=== PATIENT | male | born 1955 | race Caucasian/White ===

== ENCOUNTER → 2022-10-12 | Outpatient (REF) | payer MEDICAID, SELFPAY ==
[2022-10-12 11:36] LABS: Hematocrit 33.2 % (40-54); Hemoglobin 10.2 g/dL (13.0-16.5); Mean Corp Hgb Conc 30.7 g/dL (32-36); Mean Corpuscular Hgb 29.1 pg (27.0-32.0); Mean Corpuscular Volume 94.9 fL (80-94); Mean Platelet Vol. 10.9 fl (6.2-12.0); Platelet Count 203 K/mm3 (150-450); RBC Distribution Width CV 15.1 % (11.6-14.6); RBC Distribution Width SD 52.6 fl (35.1-43.9); White Blood Count 6.2 K/mm3 (4.4-11.0)
[2022-10-12 11:56] LABS: Vitamin D,25 Hydroxy 61.6 ng/mL
[2022-10-12 12:16] LABS: AST(SGOT) 11 U/L (15-37); Alanine Aminotransfer ALT/SGPT 20 U/L (16-61); Alkaline Phosphatase 104 U/L (45-117); Anion Gap 4 (5-15); BUN 30 mg/dL (7-18); BUN/Creat Ratio 20.8 RATIO (10-20); Calcium,Total 8.5 mg/dL (8.5-10.1); Chloride 108 mmol/L (98-107); Cholesterol 80 mg/dL (200); Creatinine, Serum 1.44 mg/dL (0.70-1.30); EST Glomerular Filtration Rate 52 mL/min (>60); Est Glom Filt Rate - Afr Amer 63 mL/min (>60); Globulin 2.9 g/dL (2.2-4.2); Glucose 314 mg/dL (74-106); High Density Lipoprotein 36 mg/dL; Potassium 4.4 mmol/L (3.5-5.1); Protein, Total 5.9 g/dL (6.4-8.2); Sodium Level 137 mmol/L (136-145); Thyroid Stim Hormone (TSH) 2.41 uIU/mL (0.358-3.74); Triglycerides 99 mg/dL; Very Low Density Lipoprotein 20 mg/dL (5-40)
[2022-10-12 13:32] LABS: Hemoglobin A1c 7.6 % (3.8-5.6)
== END | disposition home or self-care (01) ==
LOC: OLS.ACW100 06:10
PROVIDERS: Visit Provider Family Medicine
DX: E11.42 Type 2 diabetes mellitus with diabetic polyneuropathy (principal); F41.1 Generalized anxiety disorder; D63.1 Anemia in chronic kidney disease; E55.9 Vitamin D deficiency, unspecified; E78.5 Hyperlipidemia, unspecified; F32.9 Major depressive disorder, single episode, unspecified
CPT/HCPCS: 36415; 80053; 80061; 82306; 83036; 84443; 85027

== ENCOUNTER → 2022-10-13 | Outpatient (REF) | payer MEDICAID, SELFPAY ==
[2022-10-13 09:14] LABS: Hematocrit 32.5 % (40-54); Hemoglobin 10.2 g/dL (13.0-16.5); Mean Corp Hgb Conc 31.4 g/dL (32-36); Mean Corpuscular Hgb 29.5 pg (27.0-32.0); Mean Corpuscular Volume 93.9 fL (80-94); Platelet Count 200 K/mm3 (150-450); RBC Distribution Width CV 15.2 % (11.6-14.6); RBC Distribution Width SD 52.2 fl (35.1-43.9); Red Blood Count 3.46 M/mm3 (4.6-6.2); White Blood Count 5.4 K/mm3 (4.4-11.0)
[2022-10-13 09:29] LABS: AST(SGOT) 11 U/L (15-37); Alanine Aminotransfer ALT/SGPT 17 U/L (16-61); Alkaline Phosphatase 100 U/L (45-117); Anion Gap 5 (5-15); BUN 32 mg/dL (7-18); BUN/Creat Ratio 23.5 RATIO (10-20); Calcium,Total 8.4 mg/dL (8.5-10.1); Chloride 110 mmol/L (98-107); Cholesterol 78 mg/dL (200); Creatinine, Serum 1.36 mg/dL (0.70-1.30); EST Glomerular Filtration Rate 56 mL/min (>60); Est Glom Filt Rate - Afr Amer 67 mL/min (>60); Globulin 2.9 g/dL (2.2-4.2); Glucose 237 mg/dL (74-106); High Density Lipoprotein 40 mg/dL; Potassium 4.4 mmol/L (3.5-5.1); Protein, Total 5.9 g/dL (6.4-8.2); Sodium Level 141 mmol/L (136-145); Triglycerides 79 mg/dL; Very Low Density Lipoprotein 16 mg/dL (5-40)
[2022-10-13 10:58] LABS: Hemoglobin A1c 7.6 % (3.8-5.6)
== END | disposition home or self-care (01) ==
LOC: OLS.ACW100 05:00
PROVIDERS: Visit Provider Family Medicine
DX: E11.42 Type 2 diabetes mellitus with diabetic polyneuropathy (principal); I10 Essential (primary) hypertension; F41.1 Generalized anxiety disorder; D63.1 Anemia in chronic kidney disease; E55.9 Vitamin D deficiency, unspecified; E78.5 Hyperlipidemia, unspecified; F32.9 Major depressive disorder, single episode, unspecified
CPT/HCPCS: 36415; 80053; 80061; 83036; 85027

== ENCOUNTER → 2022-12-01 | Outpatient (REF) | payer MEDICAID, SELFPAY ==
[2022-12-01 09:13] LABS: Hematocrit 32.3 % (40-54); Mean Corpuscular Hgb 28.8 pg (27.0-32.0); Mean Corpuscular Volume 93.1 fL (80-94); Mean Platelet Vol. 10.8 fl (6.2-12.0); Platelet Count 215 K/mm3 (150-450); RBC Distribution Width CV 14.7 % (11.6-14.6); RBC Distribution Width SD 50.5 fl (35.1-43.9); Red Blood Count 3.47 M/mm3 (4.6-6.2); White Blood Count 4.1 K/mm3 (4.4-11.0)
[2022-12-01 09:41] LABS: ALB/GLOB Ratio 1.1 RATIO (0.9-2.4); AST(SGOT) 9 U/L (15-37); Alanine Aminotransfer ALT/SGPT 17 U/L (16-61); Albumin, Serum 2.9 g/dL (3.2-5.0); Alkaline Phosphatase 102 U/L (45-117); Anion Gap 4 (5-15); BUN 20 mg/dL (7-18); BUN/Creat Ratio 15.6 RATIO (10-20); Calcium,Total 8.7 mg/dL (8.5-10.1); Chloride 115 mmol/L (98-107); Creatinine, Serum 1.28 mg/dL (0.70-1.30); EST Glomerular Filtration Rate 60 mL/min (>60); Est Glom Filt Rate - Afr Amer 72 mL/min (>60); Globulin 2.7 g/dL (2.2-4.2); Glucose 192 mg/dL (74-106); Lipase 11 U/L (13-75); Potassium 3.8 mmol/L (3.5-5.1); Protein, Total 5.6 g/dL (6.4-8.2); Sodium Level 142 mmol/L (136-145)
== END | disposition home or self-care (01) ==
LOC: OLS.ACW300 05:00
PROVIDERS: Visit Provider Family Medicine
DX: N18.31 Chronic kidney disease, stage 3a (principal); I25.10 Atherosclerotic heart disease of native coronary artery without angina pectoris
CPT/HCPCS: 36415; 80053; 83690; 83735; 85027

== ENCOUNTER → 2023-05-02 | Outpatient (REF) | payer MEDICAID, SELFPAY ==
[2023-05-02 10:24] LABS: Anion Gap 5 (5-15); BUN 17 mg/dL (7-18); Calcium,Total 9.1 mg/dL (8.5-10.1); Chloride 111 mmol/L (98-107); Cholesterol 96 mg/dL (200); EST Glomerular Filtration Rate 79 mL/min (>60); Est Glom Filt Rate - Afr Amer 96 mL/min (>60); Glucose 118 mg/dL (74-106); High Density Lipoprotein 46 mg/dL; Potassium 4.7 mmol/L (3.5-5.1); Sodium Level 142 mmol/L (136-145); Triglycerides 86 mg/dL; Very Low Density Lipoprotein 17 mg/dL (5-40)
[2023-05-02 11:11] LABS: Hemoglobin A1c 7.6 % (3.8-5.6)
== END | disposition home or self-care (01) ==
LOC: OLS.ACW300 05:00
PROVIDERS: Visit Provider Family Medicine
DX: E11.42 Type 2 diabetes mellitus with diabetic polyneuropathy (principal); F41.1 Generalized anxiety disorder; R53.1 Weakness; M62.81 Muscle weakness (generalized)
CPT/HCPCS: 36415; 80048; 80061; 83036

== ENCOUNTER → 2023-07-13 | Outpatient (REF) | payer MEDICAID, SELFPAY ==
[2023-07-13 08:49] LABS: Erythrocyte Sedimentation Rate 7 mm/hr (0-20)
[2023-07-13 08:52] LABS: Hematocrit 33.5 % (40-54); Hemoglobin 10.1 g/dL (13.0-16.5); Mean Corp Hgb Conc 30.1 g/dL (32-36); Mean Corpuscular Hgb 29.6 pg (27.0-32.0); Mean Corpuscular Volume 98.2 fL (80-94); Mean Platelet Vol. 10.9 fl (6.2-12.0); Platelet Count 201 K/mm3 (150-450); RBC Distribution Width CV 14.9 % (11.6-14.6); RBC Distribution Width SD 53.7 fl (35.1-43.9); Red Blood Count 3.41 M/mm3 (4.6-6.2); White Blood Count 4.8 K/mm3 (4.4-11.0)
[2023-07-13 09:02] LABS: ALB/GLOB Ratio 1.1 RATIO (0.9-2.4); AST(SGOT) 7 U/L (15-37); Alanine Aminotransfer ALT/SGPT 18 U/L (16-61); Alkaline Phosphatase 90 U/L (45-117); Anion Gap 3 (5-15); BUN 23 mg/dL (7-18); BUN/Creat Ratio 20.7 RATIO (10-20); CRP < 2.90 mg/L (0.0-3.0); Calcium,Total 8.5 mg/dL (8.5-10.1); Chloride 116 mmol/L (98-107); Cholesterol 96 mg/dL (200); Creatinine, Serum 1.11 mg/dL (0.70-1.30); EST Glomerular Filtration Rate 70 mL/min (>60); Est Glom Filt Rate - Afr Amer 85 mL/min (>60); Globulin 2.8 g/dL (2.2-4.2); Glucose 122 mg/dL (74-106); High Density Lipoprotein 40 mg/dL; Potassium 4.4 mmol/L (3.5-5.1); Protein, Total 5.8 g/dL (6.4-8.2); Sodium Level 144 mmol/L (136-145); Triglycerides 88 mg/dL; Very Low Density Lipoprotein 18 mg/dL (5-40)
[2023-07-13 09:26] LABS: Hemoglobin A1c 7.7 % (3.8-5.6)
== END | disposition home or self-care (01) ==
LOC: OLS.ACW300 05:00
PROVIDERS: Visit Provider Family Medicine
DX: E11.42 Type 2 diabetes mellitus with diabetic polyneuropathy (principal); F41.1 Generalized anxiety disorder; R41.841 Cognitive communication deficit; R53.1 Weakness; M62.81 Muscle weakness (generalized)
CPT/HCPCS: 36415; 80053; 80061; 83036; 85027; 85652; 86140

== ENCOUNTER → 2023-07-31 | Outpatient (REF) | payer MEDICAID, SELFPAY ==
[2023-07-31 09:45] LABS: Hematocrit 34.3 % (40-54); Hemoglobin 10.7 g/dL (13.0-16.5); Mean Corp Hgb Conc 31.2 g/dL (32-36); Mean Corpuscular Hgb 30.6 pg (27.0-32.0); Mean Platelet Vol. 10.6 fl (6.2-12.0); Platelet Count 222 K/mm3 (150-450); RBC Distribution Width CV 15.4 % (11.6-14.6); RBC Distribution Width SD 55.5 fl (35.1-43.9); White Blood Count 6.2 K/mm3 (4.4-11.0)
== END | disposition home or self-care (01) ==
LOC: OLS.ACW300 05:00
PROVIDERS: Visit Provider Family Medicine
DX: Z79.899 Other long term (current) drug therapy (principal)
CPT/HCPCS: 36415; 85027

== ENCOUNTER → 2023-10-05 | Outpatient (REF) | payer MEDICAID, SELFPAY ==
[2023-10-05 08:09] LABS: Hematocrit 37.4 % (40-54); Hemoglobin 11.3 g/dL (13.0-16.5); Mean Corp Hgb Conc 30.2 g/dL (32-36); Mean Corpuscular Volume 99.2 fL (80-94); Mean Platelet Vol. 10.1 fl (6.2-12.0); Platelet Count 210 K/mm3 (150-450); RBC Distribution Width CV 14.2 % (11.6-14.6); RBC Distribution Width SD 51.5 fl (35.1-43.9); Red Blood Count 3.77 M/mm3 (4.6-6.2); White Blood Count 5.3 K/mm3 (4.4-11.0)
[2023-10-05 08:37] LABS: ALB/GLOB Ratio 1.1 RATIO (0.9-2.4); AST(SGOT) 6 U/L (15-37); Alanine Aminotransfer ALT/SGPT 16 U/L (16-61); Albumin, Serum 3.2 g/dL (3.2-5.0); Alkaline Phosphatase 96 U/L (45-117); Anion Gap 7 (5-15); BUN 24 mg/dL (7-18); BUN/Creat Ratio 22.2 RATIO (10-20); Calcium,Total 8.9 mg/dL (8.5-10.1); Chloride 112 mmol/L (98-107); Cholesterol 117 mg/dL (200); Creatinine, Serum 1.08 mg/dL (0.70-1.30); EST Glomerular Filtration Rate 73 mL/min (>60); Est Glom Filt Rate - Afr Amer 88 mL/min (>60); Globulin 2.8 g/dL (2.2-4.2); Glucose 189 mg/dL (74-106); High Density Lipoprotein 43 mg/dL; Potassium 4.3 mmol/L (3.5-5.1); Sodium Level 141 mmol/L (136-145); Triglycerides 169 mg/dL; Very Low Density Lipoprotein 34 mg/dL (5-40)
[2023-10-05 12:54] LABS: Hemoglobin A1c 8.2 % (3.8-5.6)
== END | disposition home or self-care (01) ==
LOC: OLS.ACW300 05:00
PROVIDERS: Visit Provider Family Medicine
DX: E11.42 Type 2 diabetes mellitus with diabetic polyneuropathy (principal); F41.1 Generalized anxiety disorder; R41.841 Cognitive communication deficit; R53.1 Weakness; M62.81 Muscle weakness (generalized)
CPT/HCPCS: 36415; 80053; 80061; 83036; 85027

== ENCOUNTER → 2023-10-31 | Outpatient (REF) | payer MEDICAID, SELFPAY ==
[2023-10-31 10:11] LABS: Anion Gap 4 (5-15); BUN 22 mg/dL (7-18); BUN/Creat Ratio 17.7 RATIO (10-20); Calcium,Total 8.9 mg/dL (8.5-10.1); Chloride 113 mmol/L (98-107); Cholesterol 105 mg/dL (200); Creatinine, Serum 1.24 mg/dL (0.70-1.30); EST Glomerular Filtration Rate 62 mL/min (>60); Est Glom Filt Rate - Afr Amer 75 mL/min (>60); Glucose 164 mg/dL (74-106); High Density Lipoprotein 39 mg/dL; Potassium 4.3 mmol/L (3.5-5.1); Sodium Level 142 mmol/L (136-145); Triglycerides 213 mg/dL; Very Low Density Lipoprotein 43 mg/dL (5-40)
[2023-10-31 11:22] LABS: Hemoglobin A1c 8.4 % (3.8-5.6)
== END | disposition home or self-care (01) ==
LOC: OLS.ACW300 05:00
PROVIDERS: Referring Provider Family Medicine; Visit Provider Family Medicine
DX: E11.42 Type 2 diabetes mellitus with diabetic polyneuropathy (principal); E78.5 Hyperlipidemia, unspecified; I10 Essential (primary) hypertension; R53.1 Weakness
CPT/HCPCS: 36415; 80048; 80061; 83036

== ENCOUNTER → 2023-11-07 | Outpatient (REF) | payer MEDICAID, SELFPAY ==
[2023-11-08 08:27] LABS: Mucous, Urine 0 SEEN /hpf (<or=2+); Red Blood Cells-Urine 0 SEEN /hpf (0-5); Squamous Epithelial Cells - UA 0 SEEN /hpf (0-5)
[2023-11-08 08:38] LABS: Color, Urine Yellow (Yellow); Glucose, Dipstick 1000 mg/dl (Normal); Ketone-Dipstick Negative (Negative); Leukocyte Esterase-Dipstick 500 /ul (Negative); Nitrite-Dipstick Positive (Negative); Occult Blood-Urine 25 /ul (Negative); Protein-Dipstick 30 mg/dl (Negative); Specific Gravity, Urine 1.015 (1.002-1.030); Urine Bilirubin Dipstick Negative (Negative); Urine Clarity Clear (Clear); Urine Urobilinogen Normal (Normal)
[2023-11-08 08:48] LABS: Bacteria 3+ /hpf (None Seen); Triple Phosphate Crystals Ur 1+ /hpf (<or=1+); White Blood Cells 5-10 SEEN /hpf (0-5)
== END | disposition home or self-care (01) ==
LOC: OLS.ACW300 22:00
PROVIDERS: Visit Provider Family Medicine
DX: E11.42 Type 2 diabetes mellitus with diabetic polyneuropathy (principal); F41.1 Generalized anxiety disorder; R41.841 Cognitive communication deficit; R27.9 Unspecified lack of coordination; R53.1 Weakness; M62.81 Muscle weakness (generalized)
CPT/HCPCS: 81001; 87077; 87086; 87088; 87186

== ENCOUNTER → 2023-12-06 05:00 | Outpatient (REF) | payer MEDICAID, SELFPAY ==
[2023-12-06 08:33] LABS: Hematocrit 36.3 % (40-54); Hemoglobin 11.2 g/dL (13.0-16.5); Mean Corp Hgb Conc 30.9 g/dL (32-36); Mean Corpuscular Hgb 30.1 pg (27.0-32.0); Mean Corpuscular Volume 97.6 fL (80-94); Mean Platelet Vol. 10.7 fl (6.2-12.0); Platelet Count 187 K/mm3 (150-450); RBC Distribution Width CV 15.1 % (11.6-14.6); RBC Distribution Width SD 54.6 fl (35.1-43.9); Red Blood Count 3.72 M/mm3 (4.6-6.2); White Blood Count 4.5 K/mm3 (4.4-11.0)
[2023-12-06 08:48] LABS: Vitamin D,25 Hydroxy 67.4 ng/mL
[2023-12-06 08:56] LABS: AST(SGOT) 12 U/L (15-37); Alanine Aminotransfer ALT/SGPT 15 U/L (16-61); Alkaline Phosphatase 106 U/L (45-117); Anion Gap 4 (5-15); BUN 13 mg/dL (7-18); Chloride 111 mmol/L (98-107); Cholesterol 100 mg/dL (200); Creatinine, Serum 0.93 mg/dL (0.70-1.30); EST Glomerular Filtration Rate 87 mL/min (>60); Est Glom Filt Rate - Afr Amer 105 mL/min (>60); Glucose 164 mg/dL (74-106); High Density Lipoprotein 39 mg/dL; Potassium 4.1 mmol/L (3.5-5.1); Sodium Level 140 mmol/L (136-145); Triglycerides 173 mg/dL; Uric Acid 4.1 mg/dL (3.5-7.2); Very Low Density Lipoprotein 35 mg/dL (5-40)
[2023-12-06 11:34] LABS: Hemoglobin A1c 7.6 % (3.8-5.6)
== END ==
LOC: OLS.ACW100 05:00
PROVIDERS: Visit Provider Family Medicine
DX: E11.42 Type 2 diabetes mellitus with diabetic polyneuropathy (principal); F41.1 Generalized anxiety disorder; R41.841 Cognitive communication deficit; R27.9 Unspecified lack of coordination; M62.81 Muscle weakness (generalized)
CPT/HCPCS: 36415; 80053; 80061; 82306; 83036; 83735; 84443; 84550; 85027

== ENCOUNTER → 2024-01-01 05:00 | Outpatient (REF) | payer MEDICAID, SELFPAY ==
[2024-01-01 09:06] LABS: Hematocrit 36.9 % (40-54); Hemoglobin 11.1 g/dL (13.0-16.5); Mean Corp Hgb Conc 30.1 g/dL (32-36); Mean Corpuscular Hgb 29.6 pg (27.0-32.0); Mean Corpuscular Volume 98.4 fL (80-94); Mean Platelet Vol. 10.2 fl (6.2-12.0); Platelet Count 200 K/mm3 (150-450); RBC Distribution Width CV 15.3 % (11.6-14.6); RBC Distribution Width SD 55.7 fl (35.1-43.9); Red Blood Count 3.75 M/mm3 (4.6-6.2); White Blood Count 4.9 K/mm3 (4.4-11.0)
[2024-01-01 09:27] LABS: AST(SGOT) 8 U/L (15-37); Alanine Aminotransfer ALT/SGPT 19 U/L (16-61); Albumin, Serum 2.9 g/dL (3.2-5.0); Alkaline Phosphatase 94 U/L (45-117); Anion Gap 7 (5-15); BUN 20 mg/dL (7-18); BUN/Creat Ratio 18.9 RATIO (10-20); Bilirubin, Direct 0.11 mg/dL (0.00-0.30); Chloride 113 mmol/L (98-107); Cholesterol 113 mg/dL (200); Creatinine, Serum 1.06 mg/dL (0.70-1.30); EST Glomerular Filtration Rate 74 mL/min (>60); Est Glom Filt Rate - Afr Amer 90 mL/min (>60); Globulin 2.9 g/dL (2.2-4.2); Glucose 163 mg/dL (74-106); High Density Lipoprotein 44 mg/dL; Potassium 4.2 mmol/L (3.5-5.1); Protein, Total 5.8 g/dL (6.4-8.2); Sodium Level 142 mmol/L (136-145); Triglycerides 165 mg/dL; Very Low Density Lipoprotein 33 mg/dL (5-40)
[2024-01-01 10:45] LABS: Hemoglobin A1c 7.8 % (3.8-5.6)
== END ==
LOC: OLS.ACW300 05:00
PROVIDERS: Visit Provider Family Medicine
DX: F41.1 Generalized anxiety disorder (principal); R41.841 Cognitive communication deficit
CPT/HCPCS: 36415; 80048; 80061; 80076; 83036; 84443; 85027

== ENCOUNTER → 2024-02-19 | Outpatient (REF) | payer MEDICAID, SELFPAY ==
[2024-02-19 09:04] LABS: PSA,Total - Annual Screen 0.05 ng/mL (0.00-4.00)
== END | disposition home or self-care (01) ==
LOC: OLS.ACW300 05:00
PROVIDERS: Visit Provider Family Medicine
DX: Z12.5 Encounter for screening for malignant neoplasm of prostate (principal)
CPT/HCPCS: 36415; 84153; G0103

== ENCOUNTER → 2024-03-26 | Outpatient (REF) | payer MEDICAID, SELFPAY ==
[2024-03-26 09:00] LABS: Hematocrit 35.5 % (40-54); Hemoglobin 10.7 g/dL (13.0-16.5); Mean Corp Hgb Conc 30.1 g/dL (32-36); Mean Corpuscular Hgb 29.2 pg (27.0-32.0); Mean Platelet Vol. 9.9 fl (6.2-12.0); Platelet Count 266 K/mm3 (150-450); RBC Distribution Width CV 14.4 % (11.6-14.6); RBC Distribution Width SD 51.4 fl (35.1-43.9); Red Blood Count 3.66 M/mm3 (4.6-6.2); White Blood Count 11.2 K/mm3 (4.4-11.0)
[2024-03-26 09:19] LABS: Anion Gap 7 (5-15); BUN 25 mg/dL (7-18); Calcium,Total 9.2 mg/dL (8.5-10.1); Chloride 109 mmol/L (98-107); Creatinine, Serum 1.19 mg/dL (0.70-1.30); EST Glomerular Filtration Rate 65 mL/min (>60); Est Glom Filt Rate - Afr Amer 78 mL/min (>60); Glucose 255 mg/dL (74-106); Potassium 4.4 mmol/L (3.5-5.1); Sodium Level 140 mmol/L (136-145)
== END | disposition home or self-care (01) ==
LOC: OLS.ACW300 05:00
PROVIDERS: Visit Provider Family Medicine
DX: F41.1 Generalized anxiety disorder (principal); R26.81 Unsteadiness on feet; R41.841 Cognitive communication deficit
CPT/HCPCS: 36415; 80048; 85027

== ENCOUNTER → 2024-04-01 | Outpatient (REF) | payer MEDICAID, SELFPAY ==
[2024-04-01 09:05] LABS: Hematocrit 34.2 % (40-54); Hemoglobin 10.4 g/dL (13.0-16.5); Mean Corp Hgb Conc 30.4 g/dL (32-36); Mean Corpuscular Hgb 29.1 pg (27.0-32.0); Mean Corpuscular Volume 95.8 fL (80-94); Mean Platelet Vol. 10.1 fl (6.2-12.0); Platelet Count 282 K/mm3 (150-450); RBC Distribution Width CV 14.2 % (11.6-14.6); RBC Distribution Width SD 50.4 fl (35.1-43.9); Red Blood Count 3.57 M/mm3 (4.6-6.2); White Blood Count 6.3 K/mm3 (4.4-11.0)
[2024-04-01 10:01] LABS: AST(SGOT) 8 U/L (15-37); Alanine Aminotransfer ALT/SGPT 15 U/L (16-61); Albumin, Serum 2.8 g/dL (3.2-5.0); Alkaline Phosphatase 85 U/L (45-117); Anion Gap 5 (5-15); BUN 22 mg/dL (7-18); BUN/Creat Ratio 18.6 RATIO (10-20); Bilirubin, Direct 0.08 mg/dL (0.00-0.30); Calcium,Total 8.6 mg/dL (8.5-10.1); Chloride 111 mmol/L (98-107); Cholesterol 92 mg/dL (200); Creatinine, Serum 1.18 mg/dL (0.70-1.30); EST Glomerular Filtration Rate 65 mL/min (>60); Est Glom Filt Rate - Afr Amer 79 mL/min (>60); Glucose 205 mg/dL (74-106); High Density Lipoprotein 44 mg/dL; Potassium 4.4 mmol/L (3.5-5.1); Protein, Total 5.8 g/dL (6.4-8.2); Sodium Level 140 mmol/L (136-145); Triglycerides 97 mg/dL; Very Low Density Lipoprotein 19 mg/dL (5-40)
[2024-04-01 10:33] LABS: Hemoglobin A1c 8.2 % (3.8-5.6)
== END | disposition home or self-care (01) ==
LOC: OLS.ACW200 05:00
PROVIDERS: Visit Provider Family Medicine
DX: S09.90XD Unspecified injury of head, subsequent encounter (principal); R26.81 Unsteadiness on feet; F41.1 Generalized anxiety disorder; R41.841 Cognitive communication deficit
CPT/HCPCS: 36415; 80048; 80061; 80076; 83036; 84443; 85027

== ENCOUNTER → 2024-05-14 07:35 | Outpatient (REF) | payer MEDICAID, SELFPAY ==
[2024-05-14 10:30] LABS: PSA,Total- Diagnostic 0.07 ng/mL (0.0-4.0)
== END ==
LOC: OLS.ACW100 07:35
PROVIDERS: Referring Provider Family Medicine; Visit Provider Family Medicine
DX: S09.90XD Unspecified injury of head, subsequent encounter (principal); R26.81 Unsteadiness on feet; W19.XXXD Unspecified fall, subsequent encounter; F41.1 Generalized anxiety disorder; R41.841 Cognitive communication deficit; N40.1 Benign prostatic hyperplasia with lower urinary tract symptoms
CPT/HCPCS: 36415; 84153

== ENCOUNTER → 2024-07-01 | Outpatient (REF) | payer MEDICAID, SELFPAY ==
[2024-07-01 09:32] LABS: Hemoglobin A1c 8.6 % (<=5.6)
== END | disposition home or self-care (01) ==
LOC: OLS.ACW200 05:00
PROVIDERS: Visit Provider Family Medicine
DX: S09.90XD Unspecified injury of head, subsequent encounter (principal); J96.02 Acute respiratory failure with hypercapnia; F41.1 Generalized anxiety disorder; R26.81 Unsteadiness on feet
CPT/HCPCS: 36415; 83036

== ENCOUNTER → 2024-09-23 05:00 | Outpatient (REF) | payer MEDICAID, SELFPAY ==
--- OUTSIDE RECORDS SUMMARY | 2024-09-23 03:43 | XMS RPT_ITS | CCD ---
Author Organization [facility] Care Team Providers Care Brim Cutter Name Role Phone PROVIDER, UNKNOWN Unavailable Unavailable Spoljaric, Pepe Unavailable Unavailable Baranek, Stacey Unavailable Unavailable Baranek, Stacey Unavailable Unavailable PROVIDER, UNKNOWN Unavailable Unavailable Spoljaric, Pepe Unavailable Unavailable Baranek, Stacey Unavailable Unavailable PROVIDER, UNKNOWN Unavailable Unavailable Spoljaric, Pepe Unavailable Unavailable PROVIDER, UNKNOWN Unavailable Unavailable Spoljaric, Pepe Unavailable Unavailable Soto, Abhijit Unavailable Unavailable Isaiah, Melquiades Unavailable Unavailable PROVIDER, UNKNOWN Unavailable Unavailable Spoljaric, Pepe Unavailable Unavailable Willy Reeder Attending Unavailable PROVIDER, UNKNOWN Referring Unavailable Spoljaric, Pepe Primary Care Unavailable Pedro Rincon Attending Unavailable PROVIDER, UNKNOWN Referring Unavailable Spoljaric, Pepe Primary Care Unavailable Melquiades Gaming Attending Unavailable PROVIDER, UNKNOWN Referring Unavailable Spoljaric, Pepe Primary Care Unavailable Unavailable Primary Care Provider UnavailJose Martin Alcaraz MD Primary Care Provider Chelle Troncoso Primary Care Provider [phone] Chelle Troncoso Primary Care Provider Chelle Troncoso Primary Care Provider CHELLE TRONCOSO Primary Care Unavailab MARIXA Mittal Attending Unavaila ble SELF Referring Unavailable Unavailable Primary Care Provider Unavailshantel Arriaza DMD, MD, Rony Unavailable KLEVER ÁLVAREZ Referring Unavailable PROVIDER, UNKNOWN Admitting Unavailable CINTHYA, RONY Attending Unavailable PROVIDER, UNKNOWN Admitting Unavailable CINTHYA, RONY Attending Unavailable Unavailable Primary Care Provider UnavailChelle Kate MD Primary Care Provider [phone] Jose Martin [place] Primary Care Provider Pepe Marino MD Unavailable [phone] Chelle Mendez Attending Provider Unavailabl e Thea GARCIA, Chelle Referring Provider Unavailabl e Thea GARCIA, Chelle Attending Unavailable Thea GARCIA, Chelle Referring Unavailable Thea GARCIA, Chelle Attending Unavailable Thea GARCIA, Chelle Attending Unavailable Thea GARCIA, Chelle Attending Unavailable Thea GARCIA, Chelle Attending Unavailable Thea GARCIA, Chelle Attending Unavailable Thea GARCIA, Chelle Referring Unavailable Thea GARCIA, Chelle Attending Unavailable Thea GARCIA, Chelle Attending Unavailable Thea GARCIA, Chelle Attending Unavailable Thea GARCIA, Chelle Attending Unavailable Thea GARCIA, Chelle Attending Unavailable CHELLE TRONCOSO Primary Care Unavailable HAYDEE WILLIS Admitting Unavailable MANJINDER SANCHEZ Attending Unavailable LORENZA BOWLES Admitting Unavailable MARIXA RODRIGUEZ Primary Care Unavailable ROMARIO MUNOZ Attending Unavailable CHELLE TRONCOSO Primary Care Unavailable BETHANY SANDHU Admitting Unavailable DELISA COURTNEY Attending Unavailable JARET BLACKWOOD Consulting Unavailable ADAL PRESCOTT Consulting Unavailable GULSHAN ARREOLA Referring Unavailable MARIXA RODRIGUEZ Primary Care Unavailable PEPE MARINO Attending Unavailable PEPE MARINO Referring Unavailable CHELLE TRONCOSO Primary Care Unavailable SUZY CORCORAN Attending Unavailable CHELLE TRONCOSO Primary Care Unavailable CHE ALEGRIA Attending Unavailable CHELLE TRONCOSO Primary Care Unavailable CHE ALEGRIA Attending Unavailable CHE ALEGRIA Referring Unavailable CHELLE TRONCOSO Primary Care Unavailable PEPE MARINO Attending Unavailable CHELLE TRONCOSO Primary Care Unavailable PEPE MARINO Attending Unavailable CHELLE TRONCOSO Primary Care Unavailable Allergies Allergy Classification Reported Allergen(s) Allergy Type Date of Onset Reaction(s) Facility Penicillins (antibiotic) (1 source) Penicillins; Translations: [PENICILLINS] Drug Allergy 09-05-19 24 [facility] Tetracyclines (antibiotic) (1 source) Tetracycline; Translations: [TETRACYCLINE] Drug Allergy 09-05-19 24 [facility] Repository (4 sources) Oxytetracycline; Translations: [OXYTETRACYCLINE] Drug Allergy 12-27-19 17 Unknown [facility] (20 sources) Penicillins; Translations: [PENICILLINS] Drug Allergy 10-24-19 15 Unknown, Other (See Comments) [facility] Work Phone: (3 sources) Oxytetracycline Drug Allergy 02-05-20 15 Other (See Comments) [facility] (3 sources) Tetracyclines & Related Propensity to adverse reactions to drug 09-07-19 19 [facility] (20 sources) Tetracycline (class of antibiotic) Drug Intolerance 02-05-20 15 [facility] (3 sources) Tetracycline Drug Allergy 09-05-19 24 [facility] Medications Current Medications Medication Drug Class(es) Dates Sig (Normalized) Sig (Original) atropine sulfate 0.025 mg / diphenoxylate hydrochloride 2.5 mg oral tablet (1 source) Anticholinergic, Cholinergic Muscarinic Antagonist, Antidiarrheal Start: 12-13-2022 End: 12-23-2022 diphenoxylate-atro pine (Lomotil) 2.5-0.025 MG tablet Indications: Functional diarrhea Take 1 tablet by mouth in the morning and 1 tablet at noon and 1 tablet in the evening and 1 tablet before bedtime. Do all this for 10 days. 30 tablet 0 12/13/2022 12/23/2022 Active azithromycin 250 mg oral tablet (3 sources) Macrolide Antimicrobial Start: 08-03-2023 azithromycin (ZITHROMAX) 250 MG tablet 08/03/2023 Active benoxinate hydrochloride 4 mg/ml / fluorescein sodium 3 mg/ml ophthalmic solution (2 sources) Diagnostic Dye Start: 06-06-2023 End: 06-06-2023 fluorescein-benoxi magdalena 0.3-0.4 % 1 Drop (FLURESS) Start: 05-06-2022 End: 05-06-2022 fluorescein-benoxinate 0.25- 0.4 % 1 Drop (FLURESS) carboxymethylcellulose sodiu m 5 mg/ml ophthalmic solution (6 sources) Start: 05-06-2022 carboxymethylc ellulose (REFRESH PLUS) 0.5 % SOLN ophthalmic solution 1 Drop by Ophthalmic route as needed. 05/06/2022 Active Start: 05-06-2022 take 1 drop(s) into the eye(s) four times daily as needed carboxymethylcellulose (REFRESH TEARS) 0.5 % drop Use 1 Drop in both eyes as needed (up to four times daily as needed for watery/red eyes). 15 mL 11 05/06/2022 Active Start: 05-06-2022 End: 05-06-2022 take 1 drop(s) into the eye(s) four times daily as needed carboxymethylcellulose (REFRESH TEARS) 0.5 % drop Use 1 Drop in both eyes as needed (up to four times daily as needed for watery/red eyes). 15 mL 11 05/06/2022 Active Comment on above: Use 1 Drop in both e yes as needed (up to four times daily as needed for watery/red eyes). Use 1 Drop in both e yes as needed (up to four times daily for redness and watery eyes). carisoprodol 350 mg oral tablet (3 sources) Muscle Relaxant carisoprodol (SO MA) 350 MG tablet TIT PO TID FOR 28 DAYS Active cefdinir 300 mg oral capsule (2 sources) Cephalosporin Antibacterial Start: End: take 1 capsule by mouth twice daily cefdinir (Omnicef) 300 MG capsule Take 1 capsule (300 mg) by mouth 2 times daily for 3 days. 6 capsule 12/05/2023 12/08/2023 Active cephalexin 500 mg oral capsule (3 sources) Cephalosporin Antibacterial Start: cephALEXin (KEFLEX) 500 MG capsule 08/21/2023 Active chlorhexidine gluconate 1.2 mg/ml mouthwash (2 sources) Start: End: chlorhexidine (Peridex) 0.12 % oral solution Take 15 mL by mouth 2 times daily for 7 days. Swish for 30 seconds and lightly spit. Do not swallow 473 mL 3 09/14/2023 Active Continuous Glucose Systems Software Manager (FreeStyle [place] [address] [place]) (3 sources) Start: Continuous Glucose Systems Software Manager (FreeStyle [place] [address] [place]) 07/24/2023 Active dicyclomine hydrochloride 10 mg oral capsule (20 sources) Anticholinergic Start: End: take 1 capsule by mouth three times daily dicyclomine (Bentyl) 10 MG capsule Take 10 mg by mouth 3 times daily. 02/01/2023 Active Start: 12-20-2016 take 1 capsule by [facility] four times daily dicyclomine (BENTYL) 10 MG capsule Indications: Other irritable bowel syndrome , Generalized abdominal pain Take 1 capsule by mouth 4 times daily 120 capsule 3 12/20/2016 Active diphenhydrAMINE hydrochloride 25 mg oral capsule (3 sources) Histamine-1 Receptor Antagonist Start: 08-21-2023 Banophen 25 MG capsule 08/21/2023 Active docusate sodium 100 mg oral capsule (6 sources) take 1 capsule by mouth twice daily Docusate Sodium (DSS) 100 MG CAPS Take 100 mg by mouth 2 times daily. Active empagliflozin 10 mg oral tablet (20 sources) Sodium-Glucose Cotransporter 2 Inhibitor Start: 05-12-2023 End: 05-11-2024 Jardiance 10 MG tablet 07/18/2023 Active take 25 mg by mouth once daily e mpagliflozin (Jardiance) 25 MG Take 25 mg by mouth daily. Active famotidine 20 mg oral tablet (20 sources) Histamine-2 Receptor Antagonist Start: 08-26-2021 End: 12-05-2023 take 1 tablet by mouth in the morning famotidine (Pepcid) 20 MG tablet Take 20 mg by mouth in the morning. 08/26/2021 Active ferrous sulfate 325 mg delayed release oral tablet (6 sources) take 1 tablet by mouth twice daily ferrous sulfate 325 (65 Fe) MG enteric coated tablet Take 325 mg by mouth 2 times daily. Active 60 actuat fluticasone propionate 0.25 mg/actuat / salmeterol 0.05 mg/actuat dry powder inhaler (20 sources) Corticosteroid, beta2-Adrenergic Agonist Start: 01-21-2023 Advair Diskus 250-50 MCG/ACT aerosol powder 01/21/2023 Active folic acid 1 mg oral tablet (3 sources) take 1 tablet by mouth once daily folic acid (FOLVITE) 1 MG tablet Take 1 mg by mouth daily 0 Active gabapentin 800 mg oral tablet (6 sources) Anti-epileptic Agent Start: 07-21-2017 take 1 tablet by mouth three times daily gabapentin (NEURONTIN) 800 MG tablet Indications: Low back pain potentially associated with radiculopathy , Osteoarthritis of spine with radiculopathy, lumbar region , Chronic pain syndrome , Bilateral hip joint arthritis , Chronic pain of right knee Take 1 tablet by mouth 3 times daily for 30 days. 90 tablet 0 07/21/2017 Active ibuprofen 600 mg oral tablet (17 sources) Nonsteroidal Anti-inflammatory Drug Start: 09-14-2023 End: 06-04-2024 take 1 tablet by mouth every six hours as needed for pain ibuprofen (MOTRIN) 600 MG tablet Take 1 Tablet by mouth every 6 hours as needed for Pain. 30 Tablet 3 09/14/2023 Active Incontinence Supply Disposable (DEPEND UNDERWEAR LARGE/XL) MISC (3 sources) Start: 05-02-2017 Incontinence Supply Disposable (DEPEND UNDERWEAR LARGE/XL) [facility] uad 1 Package 5 05/02/2017 Active lisinopril 5 mg oral tablet (6 sources) Angiotensin Converting Enzyme Inhibitor Start: 08-16-2017 take 1 tablet by mouth once daily lisinopril (PRINIVIL;ZESTRIL) 5 MG tablet Take 1 tablet by mouth daily 30 tablet 3 08/16/2017 Active loratadine 10 mg oral tablet (3 sources) take 1 tablet by mouth once daily loratadine (CLARITIN) 10 MG tablet Take 10 mg by mouth daily 0 Active lovastatin 40 mg oral tablet (6 sources) HMG-CoA Reductase Inhibitor take 1 tablet by mouth at bedtime lovastatin (MEVACOR) 40 MG tablet Take 40 mg by mouth at bedtime. Active Magnesium Hydroxide (3 sources) Magnesium Hydrox starla (MILK OF MAGNESIA PO) Take 12.5 mg by mouth as needed 0 Active melatonin 2 mg extended release oral tablet (3 sources) take 2 mg by mouth once daily MELATONIN PO Take 2 mg by mouth nightly 0 Active meloxicam 15 mg oral tablet (3 sources) Nonsteroidal Anti-inflammatory Drug Start: 07-10-2017 take 1 tablet by mouth once daily at dinner meloxicam (MOBIC) 15 MG tablet Indications: Chronic pain of right knee TAKE ONE TABLET BY MOUTH DAILY WITH evening meal 10 tablet 0 07/10/2017 Active menthol 0.04 mg/mg topical gel (18 sources) Menthol, Topical Analgesic, (Biofreeze Cool The Pain) 4 % gel Apply topically every 12 hours as needed (lower back). Active metFORMIN hydrochloride 500 mg oral tablet (12 sources) Biguanide take 1 tablet by mouth twice daily at mealtime metFORMIN (Glucophage) 500 MG tablet Take 500 mg by mouth 2 times daily (with meals). Active metoprolol tartrate 25 mg oral tablet (3 sources) beta-Adrenergic Sonny Start: 08-16-2017 take 0.5 tablet by mouth twice daily metoprolol tartrate (LOPRESSOR) 25 MG tablet Take 0.5 tablets by mouth 2 times daily 60 tablet 3 08/16/2017 Active nabumetone 500 mg oral tablet (20 sources) Nonsteroidal Anti-inflammatory Drug nabumetone (Relafen) 500 MG tablet Take 750 mg by mouth 2 times daily. Active take 1 tablet by mouth twice chicho ly nabumetone (Relafen) 500 MG tablet Take 500 mg by mouth 2 times daily. 0 Active take 2 tablets by mouth twice da milo nabumetone (Relafen) 500 MG tablet Take 1,000 mg by mouth 2 times daily. 0 Active 24 hr nicotine 0.875 mg/hr transdermal system (3 sources) Cholinergic Nicotinic Agonist apply 1 dose transdermal route every twenty-four hours nicotine (NICODERM CQ) 21 MG/24HR Place 1 patch onto the skin every 24 hours 0 Active nystatin 308569 unt/ml topical cream (20 sources) Polyene Antifungal Start: 11-09-19 nystatin (Mycostatin) cream 11/08/2022 Active pantoprazole 40 mg delayed release oral tablet (12 sources) Proton Pump Inhibitor Start: 07-18-19 End: 07-19-19 26 take 1 tablet by mouth once daily before breakfast pantoprazole (ProtoNix) 40 MG EC tablet Take 1 tablet (40 mg) by mouth every morning (before breakfast). Do not crush, chew, or split. 30 tablet 11 07/18/2024 07/18/2025 Active Start: 05-30-2024 End: 06-04-2024 take 40 mg by mouth once daily in the morning 40 mg, Oral, Every morning, First dose on Meagan 05/30/24 at 1145, Do not crush, chew, or split. Start: 07-14-2017 take 2 tablets by mo uth once daily before breakfast pantoprazole (PROTONIX) 20 MG tablet Indications: Gastroesophageal reflux disease with esophagitis , Hiatal hernia Take 2 tablets by mouth every morning (before breakfast) 30 tablet 0 07/14/2017 Active take 1 tablet by michael th once daily pantoprazole (Protonix) 40 MG tablet 1 tab(s) orally once a day Active phenylephrine hydrochloride 25 mg/ml ophthalmic solution (2 sources) alpha-1 Adrenergic Agonist Start: 06-06-2023 End: 06-06-2023 PHENYLephrine 2.5 % 1 Drop (AK-DILATE, LESTER-SYNEPHRINE) Start: 05-06-2022 End: 05-06-2022 PHENYLephrine 2.5 % 1 Drop ( AK-DILATE, LESTER-SYNEPHRINE) polymyxin b 78461 unt/ml / trimethoprim 1 mg/ml ophthalmic solution (3 sources) Dihydrofolate Reductase Inhibitor Antibacterial, Polymyxin-class Antibacterial Start: 08-03-2023 trimethoprim-polymyxin b (POLYTRIM) 27643-7.1 UNIT/ML-% ophthalmic solution 08/03/2023 Active microencapsulated potassium chloride 20 meq extended release oral tablet (3 sources) Start: 08-16-2017 potassium chloride (KLOR-CON M) 20 MEQ extended release tablet Take 1 tablet by mouth as needed (hypokalemia) 60 tablet 3 08/16/2017 Active predniSONE 10 mg oral tablet (6 sources) Start: 06-05-2024 End: 06-11-2024 predniSONE (Deltasone) 10 MG tablet Take 3 tablets (30 mg) by mouth daily for 2 days, THEN 2 tablets (20 mg) daily for 2 days, THEN 1 tablet (10 mg) daily for 2 days. Do not start before June 05, 2024. 06/05/2024 06/11/2024 Active Start: 06-05-2024 End: 06-04-2024 predniSONE (Deltasone) table t 30 mg Start: 06-02-2024 End: 06-04-2024 take 40 mg by mouth once daily 40 mg, Oral, Daily, [facility] dose on 06/02/24 at 0900 proparacaine hydrochloride 5 mg/ml ophthalmic solution (1 source) Local Anesthetic Start: 06-06-2023 End: 06-06-2023 proparacaine 0.5 % 1 Drop (ALCAINE) simethicone 80 mg chewable tablet (6 sources) Start: 12-22-2016 take 1 tablet by mouth twice daily as needed simethicone (MYLICON) 80 MG chewable tablet Take 1 tablet by mouth 2 times daily as needed for Flatulence 60 tablet 0 12/22/2016 Active simethicone (GAS -X) 80 MG chewable tablet 1 tab(s) chewed 4 times a day (after meals and at bedtime) Active sucralfate 100 mg/ml oral suspension (3 sources) Aluminum Complex Start: 07-14-2017 take 10 mL by mouth twice daily before mealtime sucralfate (CARAFATE) 1 GM/10ML suspension Indications: Gastroesophageal reflux disease with esophagitis , Hiatal hernia Take 10 mLs by mouth 2 times daily (before meals) 600 mL 0 07/14/2017 Active tiZANidine 2 mg oral capsule (6 sources) Central alpha-2 Adrenergic Agonist tizanidine (Zanaflex ) 2 MG capsule 2 cap(s) orally every 8 hours Active tiZANidine HCl ( ZANAFLEX PO) Take by mouth 0 Active traMADol hydrochloride 50 mg oral tablet (3 sources) Opioid Agonist Start: 07-04-2023 tramadol (ULTR AM) 50 MG tablet 07/04/2023 Active tropicamide 10 mg/ml ophthalmic solution (2 sources) Anticholinergic Start: 06-06-2023 End: 06-06-2023 tropicamide 1 % 1 Drop (MYDRIACYL) Start: 05-06-2022 End: 05-06-2022 tropicamide 1 % 1 Drop (MYDR IACYL) Trulicity 4.5 MG/0.5ML injection pen (3 sources) Start: 06-29-2023 Trulicity 4.5 MG/0.5ML injection pen 06/29/2023 Active 7 actuat umeclidinium 0.0625 mg/actuat dry powder inhaler (9 sources) Anticholinergic Start: 04-29-2024 take 1 puff(s) by inhalation once daily Incruse Ellipta 62.5 MCG/ACT inhalation Inhale 1 puff daily. 04/29/2024 Active Completed/Discontinued Medications Medication Drug Class(es) Dates Sig (Normalized) Sig (Original) acetaminophen 500 mg oral tablet (20 sources) Start: 07-15-2024 End: 07-17-2024 1,000 mg, Oral, 3 times daily, First dose on Mon07/15/24 at 1510, Maximum dose of acetaminophen is 4000 mg from all sources in 24 hours., Indications: Pain Start: 07-15-2024 End: 07-17-2024 take 1 tablet by mouth every six hours as needed for pain and fever acetaminophen (Tylenol) tablet 650 mg Start: 05-30-2024 End: 06-04-2024 take 1 tablet by mouth every eight hours as needed for pain and fever 1,000 mg, Oral, Every 8 hours PRN, mild pain (1-3), fever, Starting on Meagan 05/30/24 at 1136, Maximum dose of acetaminophen is 4000 mg from all sources in 24 hours. Start: 11-30-2023 End: 12-05-2023 take 1 tablet by mouth every six hours as needed for pain and fever acetaminophen (Tylenol) tablet 650 mg Start: 09-14-2023 End: 09-21-2023 take 2 tablets by mouth every four hours as needed for pain acetaminophen (TYLENOL) 325 mg tablet Take 2 Tablets by mouth every 4 hours as needed for Pain or Fever for up to 7 days. 56 Tablet 09/14/2023 09/21/2023 Start: 04-24-2023 End: 04-24-2023 take 1 tablet by mouth every six hours as needed for pain and fever acetaminophen (Tylenol) tablet 650 mg Start: 07-28-2021 acetaminophen (Tylenol) 325 MG tablet Indications: Pain Take 1,000 mg by mouth 3 times daily. 07/28/2021 Active Start: 07-28-2021 take 2 tablets by mo uth every six hours as needed acetaminophen (Tylenol) 325 MG tablet Take 650 mg by mouth every 6 hours as needed. 0 07/28/2021 Active Start: 07-28-2021 take 2 tablets by mo uth every four hours as needed acetaminophen (TYLENOL) 325 mg tablet Take 2 tablets by mouth every 4 hours as needed for pain. 0 07/28/2021 Active take 2 tablets by mo uth every six hours as needed for pain acetaminophen (TYLENOL) 325 MG tablet Take 650 mg by mouth every 6 hours as needed for Pain 0 Active Comment on above: Take 2 tablets by mo uth every 4 hours as needed for pain. acetaminophen 325 mg / oxyCODONE hydrochloride 5 mg oral tablet (10 sources) Opioid Agonist Start: End: take 1 tablet by mouth every six hours as needed for pain 1 tablet, Oral, Every 6 hours PRN, severe pain (7-10), Starting on Meagan 11/30/23 at 1320, Maximum dose of acetaminophen is 4000 mg from all sources in 24 hours. Start: 04-23-2023 End: 04-23-2023 oxyCODONE-acetaminophen (Per cocet) 5-325 MG per tablet 1 tablet oxyCODONE-acetam inophen (ROXICET) 5-325 MG/5ML oral solution Take by mouth every 6 hours as needed. Active oxyCODONE-acetam inophen (ROXICET) 5-325 MG/5ML solution Take by mouth every 4 hours as needed for Pain. 0 Active albuterol 0.83 mg/ml inhalat ion solution (20 sources) beta2-Adrenergic Agonist Start: 07-15-2024 End: 07-17-2024 Start: 07-15-2024 End: 07-17-2024 Start: 11-30-2023 End: 12-05-2023 2.5 mg, Nebulization, 3 time s daily PRN, wheezing, Starting on [facility] 11/30/23 at 1545 Start: 07-28-2021 albuterol (2.5 MG/3ML) 0.083% nebulizer solution Inhale 2.5 mg. 07/28/2021 Active Start: 07-28-2021 take 2.5 mg by inhal ation every two hours as needed albuterol (PROVENTIL) 2.5 mg /3 mL (0.083 %) nebulizer solution Use 3 mL via nebulizer every 2 hours as needed for wheezing/shortness of breath. 0 07/28/2021 Active Start: 05-06-2019 albuterol (PRO VENTIL) nebulizer solution 2.5 mg Start: 11-24-2016 take 2 puff(s) by in halation every six hours as needed albuterol 108 (90 Base) MCG/ACT inhaler Inhale 2 puffs every 6 hours as needed. 11/24/2016 Active Comment on above: Use 3 mL via nebuliz er every 2 hours as needed for wheezing/shortness of breath. albuterol 0.833 mg/ml / ipratropium bromide 0.167 mg/ml inhalation solution (10 sources) Anticholinergic, beta2-Adrenergic Agonist Start: 06-02-2024 End: 06-04-2024 3 mL, Nebulization, 3 times daily, First dose (after last modification) on 06/02/24 at 2000 Start: 06-02-2024 End: 06-02-2024 3 mL, Nebulization, 4 times daily, First dose (after last modification) on [place] 06/02/24 at 0800 Start: 05-30-2024 End: 06-02-2024 3 mL, Nebulization, Every 4 hours, First dose on [facility] 05/30/24 at 1145 Start: 05-30-2024 End: 05-30-2024 3 mL, Nebulization, Once, On [facility] 05/30/24 at 0855, For 1 dose Start: 07-28-2021 take 3 mL by inhalat ion every four hours ipratropium-albuterol (DUONEB) 0.5 mg-3 mg(2.5 mg base)/3 mL nebu Inhale 3 mL as instructed every 4 hours while awake. 0 07/28/2021 Active Comment on above: Inhale 3 mL as instr ucted every 4 hours while awake. amylase 99136 unt / lipase 6000 unt / protease 10829 unt delayed release oral capsule (20 sources) Start: 07-15-2024 End: 07-17-2024 take 2 capsules by mouth three times daily at mealtime 2 capsule, Oral, 3 times daily with meals, First dose on Mon07/15/24 at 1700, Administer whole with food and sufficient fluid; do not crush or chew. Contents may be sprinkled on soft acidic food (such as applesauce or bananas) if swallowed immediately without chewing. If ordered per G-tube, thoroughly mix capsule contents into acidic food (applesauce or bananas). Stir gently; do not crush spheres. Within 15 minutes of mixing, give via a 35 mL slip-tip syringe into a 16F or larger diameter tube, then flush with ~10 mL of water. Start: 05-30-2024 End: 06-04-2024 take 1 capsule by mouth three times daily at mealtime 1 capsule, Oral, 3 times daily with meals, First dose on [facility] 05/30/24 at 1200, Administer whole with food and sufficient fluid; do not crush or chew. Contents may be sprinkled on soft acidic food (such as applesauce or bananas) if swallowed immediately without chewing. If ordered per G-tube, thoroughly mix capsule contents into acidic food (applesauce or bananas). Stir gently; do not crush spheres. Within 15 minutes of mixing, give via a 35 mL slip-tip syringe into a 16F or larger diameter tube, then flush with ~10 mL of water. Start: 11-30-2023 End: 12-05-2023 take 2 capsules by mouth three times daily at mealtime 2 capsule, Oral, 3 times daily with meals, First dose on Meagan 11/30/23 at 0800, Administer whole with food and sufficient fluid; do not crush or chew. Contents may be sprinkled on soft acidic food (such as applesauce or bananas) if swallowed immediately without chewing. If ordered per G-tube, thoroughly mix capsule contents into acidic food (applesauce or bananas). Stir gently; do not crush spheres. Within 15 minutes of mixing, give via a 35 mL slip-tip syringe into a 16F or larger diameter tube, then flush with ~10 mL of water. Start: 04-24-2023 End: 04-24-2023 pancrelipase (Ono-Vsvx-Gjlw) (Creon) 6000-71322 units per capsule 2 capsule take 31133-46215 [IU ] by mouth three times daily at mealtime pancrelipase, Zgr-Micp-Wqsx, (Creon) 19893-50920 units capsule Take by mouth 3 times daily (with meals). Active lmygmbk-jxmzzo-x rotease (CREON) 61114 units capsule Take by mouth. Active aspirin 81 mg chewable tablet (20 sources) Platelet Aggregation Inhibitor, Nonsteroidal Anti-inflammatory Drug Start: 07-15-2024 End: 07-17-2024 take 81 mg by mouth once daily 81 mg, Oral, Daily, First dose on Mon07/15/24 at 1510 Start: 05-31-2024 End: 06-04-2024 take 81 mg by mouth once daily 81 mg, Oral, Daily, [facility]ir [facility] dose on Mon05/31/24 at 0900, Do not crush, chew, or split. Start: 04-23-2023 End: 04-23-2023 aspirin chewable tablet 324 mg Start: 08-26-2021 End: 12-05-2023 aspirin 81 MG chewable table t Chew 81 mg daily. 08/26/2021 Active Start: 08-16-2017 take 1 tablet by mouth once da milo aspirin 81 MG EC tablet Take 1 tablet by mouth daily 30 tablet 3 08/16/2017 Active atorvastatin 80 mg oral tablet (20 sources) HMG-CoA Reductase Inhibitor Start: 07-15-2024 End: 07-17-2024 take 80 mg by mouth once daily 80 mg, Oral, Daily, First dose on Mon07/15/24 at 1510 Start: 07-29-2021 End: 12-05-2023 take 1 tablet by mouth in the morning atorvastatin (Lipitor) 80 MG tablet Take 80 mg by mouth in the morning. 07/29/2021 Active Comment on above: Take 1 tablet by michael th once daily. bisacodyl 10 mg rectal suppository (8 sources) Stimulant Laxative Start: 11-30-2023 End: 12-05-2023 take 10 mg rectal route every twenty-four hours as needed for constipation take 1 tablet by michael th once daily as needed bisacodyl (DULCOLAX) 5 MG enteric coated tablet Take 5 mg by mouth daily as needed. Active calcium chloride 1 g in sodium chloride 0.9 % 100 mL IVPB (1 source) Start: 05-06-2019 End: 05-06-2019 calcium chloride 1 g in sodium chloride 0.9 % 100 mL IVPB calcium gluconate 4 g in NaCl 0.9% 250 mL (2 sources) Start: 07-28-2021 calcium gluconate 4 g in NaCl 0.9% 250 mL Inject 4 g intravenously as needed (ionized calcium LESS than 1.05 mmol/L). 0 07/28/2021 Active Comment on above: Inject 4 g intraveno usly as needed (ionized calcium LESS than 1.05 mmol/L). carvedilol 3.125 mg oral tablet (20 sources) alpha-Adrenergic Sonny, beta-Adrenergic Sonny Start: 07-15-2024 End: 07-17-2024 take 3.125 mg by mouth twice daily at mealtime 3.125 mg, Oral, 2 times daily with meals, First dose on Mon07/15/24 at 1700, Hold if heart rate less than 60 or systolic blood pressure less than 90 Start: 06-04-2024 take 0.5 tablet by m outh twice daily at mealtime carvedilol (Coreg) 6.25 MG tablet Take 0.5 tablets (3.125 mg) by mouth 2 times daily (with meals). 30 tablet 3 06/04/2024 Active Start: 02-22-2023 End: 06-04-2024 take 6.25 mg by mouth twice daily at mealtime 6.25 mg, Oral, 2 times daily with meals, First dose on Mon05/30/24 at 1700 cefepime (Maxipime) 2,000 mg in sodium chloride 0.9 % 50 mL IVPB Mini-Bag Plus (2 sources) Start: 05-31-2024 End: 06-01-2024 take 2000 mg intravenously every eight hours cefTRIAXone (Rocephin) 1,000 mg in sodium chloride 0.9 % 50 mL IVPB Mini-Bag Plus (2 sources) Start: 12-04-2023 End: 12-05-2023 1,000 mg, IntraVENous, at 100 mL/hr, Administer over 30 Minutes, Every 24 hours, First dose on Mon12/04/23 at 1300, Mini-Bag Plus bag, Suspected Indication (Select all that apply): Urinary Tract Infection cholecalciferol 9.52 unt/ml / glucose 357 mg/ml oral gel (8 sources) Vitamin D Start: 07-15-2024 End: 07-17-2024 Start: 05-30-2024 End: 06-04-2024 15 g, Oral, As needed, low b lood sugar, Starting on Mon05/30/24 at 1142, If blood glucose less than 50 mg/dL and patient ALERT and NOT NPO, give 2 tubes glucose gel. If blood glucose less than 70 mg/dL and patient ALERT and NOT NPO, give 1 tube glucose gel. Repeat blood glucose in 15 minutes. If blood glucose is less than 70 mg/dL, repeat treatment and recheck blood glucose in 15 minutes x2 and notify provider. Start: 11-30-2023 End: 12-05-2023 Start: 04-24-2023 End: 04-24-2023 15 g, Oral, As needed, low b lood sugar, Starting on Mon04/24/23 at 0127, If blood glucose less than 50 mg/dL and patient ALERT and NOT NPO, give 2 tubes glucose gel. If blood glucose less than 70 mg/dL and patient ALERT and NOT NPO, give 1 tube glucose gel. Repeat blood glucose in 15 minutes. If blood glucose is less than 70 mg/dL, repeat treatment and recheck blood glucose in 15 minutes x2 and notify provider. cholestyramine resin 4000 mg powder for oral suspension (20 sources) Bile Acid Sequestrant Start: 11-30-2023 End: 12-05-2023 4 g (1 packet), Oral, 3 times daily with meals, First dose on Mon11/30/23 at 0800 Start: 04-24-2023 End: 04-24-2023 4 g (1 packet), Oral, 3 time s daily with meals, First dose on Mon04/24/23 at 0800 cilostazol 50 mg oral tablet (20 sources) Phosphodiesterase 3 Inhibitor Start: 11-30-2023 End: 12-05-2023 take 50 mg by mouth twice daily 50 mg, Oral, 2 times daily, First dose on Mon11/30/23 at 0115 clindamycin 150 mg oral capsule (10 sources) Lincosamide Antibacterial End: 12-05-2023 clindamycin (Cleocin) 150 MG capsule Take 150 mg by mouth in the morning and 150 mg at noon and 150 mg in the evening and 150 mg before bedtime. 12/05/2023 Discontinued (Stop taking at discharge) diclofenac sodium 0.01 mg/mg topical gel (4 sources) Nonsteroidal Anti-inflammatory Drug Start: 07-15-2024 End: 07-17-2024 2 g, Topical, 2 times daily PRN, muscle/joint pain, Starting on Mon07/15/24 at 2203, Apply to Lower back . Start: 04-24-2023 End: 04-24-2023 Diclofenac Sodium (Voltaren) 1 % gel 2 g 250 ml DOBUTamine 1 mg/ml injection (2 sources) beta-Adrenergic Agonist Start: 07-14-2023 End: 07-15-2023 DOBUTamine (Dobutrex) 250 mg in dextrose 5 % 250 mL infusion (premix) docusate sodium 50 mg / sennosides, [facility] 8.6 mg oral tablet (4 sources) Start: 05-30-2024 End: 06-04-2024 1 tablet, Oral, Daily PRN, constipation, Starting on Mon05/30/24 at 1136, Cannot be crushed in PEG, Indications: Constipation Start: 07-28-2021 take 2 tablets by mo uth every twelve hours as needed senna-docusate (SENNA-S) 8.6-50 mg per tablet Take 2 tablets by mouth twice daily as needed. 0 07/28/2021 Active Comment on above: Take 2 tablets by mo uth twice daily as needed. dulaglutide (Trulicity) 4.5 MG/0.5ML solution pen-injector (17 sources) End: inject 4.5 mg by subcutaneous injection once dulaglutide (Trulicity) 4.5 MG/0.5ML solution pen-injector Inject 4.5 mg under the skin 1 (one) time per week. Every Monday 0 08/21/2023 Discontinued (Med list cleanup) inject 4.5 mg by sub cutaneous injection once dulaglutide (Trulicity) 4.5 MG/0.5ML solution pen-injector Inject 4.5 mg under the skin 1 (one) time per week. Every Monday 0 Active inject 4.5 mg by sub cutaneous injection every week dulaglutide (Trulicity) 4.5 MG/0.5ML solution pen-injector Inject 4.5 mg under the skin 1 (one) time per week. 0 Active 0.3 ml enoxaparin sodium 100 mg/ml prefilled syringe (4 sources) Low Molecular Weight Heparin Start: 05-30-2024 End: 06-04-2024 inject 1 dose by subcutaneous injection twice daily 30 mg, SubCUTAneous, Every 12 hours scheduled (2 times per day), First dose on Mon05/30/24 at 1145, Indication of Use: Prophylaxis-DVT/PE Start: 11-30-2023 End: 12-05-2023 inject 40 mg by subcutaneous injection every twenty-four hours 40 mg, SubCUTAneous, Every 24 hours scheduled (Daily), First dose on Mon11/30/23 at 0900, Indication of Use: Prophylaxis-DVT/PE, Indications: Prophylaxis of Venous Thromboembolism ergocalciferol 1.25 mg oral capsule (20 sources) Provitamin D2 Compound Start: 07-16-2024 End: 07-17-2024 take 1250 ug by mouth every week 1,250 mcg, Oral, Weekly, First dose on Mon07/16/24 at 0900 take 1 capsule by mouth once erg ocalciferol (Vitamin D-2) 1.25 MG (94058 UT) capsule Take 1.25 mg by mouth 1 (one) time per week. Every Monday Active ezetimibe 10 mg oral tablet (20 sources) Dietary Cholesterol Absorption Inhibitor Start: 07-15-2024 End: 07-17-2024 take 10 mg by mouth once daily 10 mg, Oral, Nightly, First dose on Mon07/15/24 at 2100 Start: 08-26-2021 End: 12-05-2023 take 1 tablet by mouth once daily ezetimibe (Zetia) 10 MG tablet Take 10 mg by mouth Nightly. 08/26/2021 Active Ezetimibe (ZETIA PO) Take by mouth 0 Active fenofibrate 200 mg oral capsule (8 sources) Peroxisome Proliferator Receptor alpha Agonist Start: 07-29-2021 take 1 capsule by mouth once daily at breakfast fenofibrate (LOFIBRA) 200 mg capsule Take 1 capsule by mouth daily with breakfast. 0 07/29/2021 Active Start: 12-20-2016 take 1 tablet by michael once daily fenofibrate 160 MG tablet TAKE ONE TABLET BY MOUTH ONCE DAILY 90 tablet 1 12/20/2016 Active Comment on above: Take 1 capsule by mo [facility] daily with breakfast. finasteride 5 mg oral tablet (20 sources) 5-alpha Reductase Inhibitor Start: End: take 1 tablet by mouth once daily 5 mg, Oral, Daily, First dose on Mon07/15/24 at 1510, Women should not handle crushed or broken finasteride tablets when they are or may potentially be , due to potential risk to the fetus. Do not crush, chew, or split. Start: 08-26-2021 End: 12-05-2023 take 1 tablet by mouth in the morning finasteride (Proscar) 5 MG tablet Take 5 mg by mouth in the morning. 08/26/2021 Active fluticasone propionate 0.05 mg/actuat metered dose nasal spray (20 sources) Corticosteroid Start: 11-30-2023 End: 12-05-2023 1 spray, Each Nostril, Daily, First dose on Meagan 11/30/23 at 0900, Shake gently. Before first use, prime pump (press 6 times until fine spray appears). After use, clean tip and replace cap. take 1 spray(s) by inhalation on ce daily fluticasone (FLONASE) 50 mcg/act nasal inhaler 1 [place] daily. Active 60 actuat formoterol fumarate 0.005 mg/actuat / mometasone furoate 0.1 mg/actuat metered dose inhaler (6 sources) Corticosteroid, beta2-Adrenergic Agonist Start: 07-15-2024 End: 07-17-2024 take 2 puff(s) by mouth twice daily 2 puff, Inhalation, 2 times daily, First dose on Mon07/15/24 at 2000, Rinse mouth with water after use to reduce aftertaste and incidence of candidiasis. Do not swallow. Start: 11-30-2023 End: 12-05-2023 take 2 puff(s) by mouth twice daily 2 puff, Inhalation, 2 times daily, First dose on Meagan 11/30/23 at 0115, Rinse mouth with water after use to reduce aftertaste and incidence of candidiasis. Do not swallow. Start: 04-24-2023 End: 04-24-2023 take 2 puff(s) by mouth twice daily 2 puff, Inhalation, 2 times daily, First dose on Mon04/24/23 at 0800, Rinse mouth with water after use to reduce aftertaste and incidence of candidiasis. Do not swallow. 2 ml furosemide 10 mg/ml injection (10 sources) Loop Diuretic Start: 05-30-2024 End: 05-30-2024 40 mg, IntraVENous, Once, On [facility] 05/30/24 at 1015, For 1 dose Start: 07-29-2021 inject 4 mL intraven ously once daily furosemide (LASIX) 20 mg/2 mL soln Inject 4 mL intravenously once daily. 0 07/29/2021 Active Start: 08-16-2017 take 1 tablet by mouth twice d aily furosemide (LASIX) 40 MG tablet Take 1 tablet by mouth 2 times daily 60 tablet 3 08/16/2017 Active take 1 tablet by mouth once marylou y furosemide (LASIX) 20 MG tablet Take 20 mg by mouth daily 0 Active take 5 mg by mouth once daily fu rosemide (LASIX) 20 MG tablet Take 5 mg by mouth daily 0 Active Comment on above: Inject 4 mL intraven ously once daily. gadobutrol (Gadavist) injection 12 mL (2 sources) Start: 12-01-19 End: 12-01-19 take 12 mL intravenously once as needed 12 mL, IntraVENous, IMG once PRN, contrast, Starting on Mon12/01/23 at 1129, For 1 dose glucagon (rdna) 1 mg injection (10 sources) Antihypoglycemic Agent Start: 07-16-19 End: 07-18-19 Start: 05-30-2024 End: 06-04-2024 1 mg, IntraMUSCular, PRN, lo w blood sugar, Blood glucose less than 70 mg/dL and patient NOT ALERT or NPO and does not have IV access., Starting on Meagan 05/30/24 at 1142, After administration, attempt intravenous access and start D5W at 100 mL/hr. Repeat blood glucose in 15 minutes x2 and notify provider. Start: 11-30-2023 End: 12-05-2023 Start: 04-24-2023 End: 04-24-2023 1 mg, IntraMUSCular, PRN, lo w blood sugar, Blood glucose less than 70 mg/dL and patient NOT ALERT or NPO and does not have IV access., Starting on Mon04/24/23 at 0127, After administration, attempt intravenous access and start D5W at 100 mL/hr. Repeat blood glucose in 15 minutes x2 and notify provider. Start: 07-28-2021 glucagon 1 mg/ mL injection Inject 1 mg intramuscularly as needed. 0 07/28/2021 Active Comment on above: Inject 1 mg intramus cularly as needed. 50 ml glucose 50 mg/ml injection (20 sources) Start: 07-15-2024 End: 07-17-2024 Start: 07-15-2024 End: 07-17-2024 Start: 05-30-2024 End: 06-04-2024 100 mL/hr, IntraVENous, PRN, Blood sugar less than 70mg/dL, Starting on Mon05/30/24 at 1142, Start infusion following administration of dextrose 50% or glucagon. Start: 05-30-2024 End: 06-04-2024 12.5 g, IntraVENous, PRN, lo w blood sugar, Blood glucose less than 70 mg/dL and patient NOT ALERT or NPO., Starting on Mon05/30/24 at 1142, If patient does not respond within 5 minutes, repeat dose x1. Start D5W at 100 mL/hour until ordering provider can be reached. Repeat blood glucose in 15 minutes. If blood glucose is less than 70 mg/dL, repeat treatment and recheck blood glucose in 15 minutes x2. If using Glucostabilizer, dose as instructed per system. Start: 11-30-2023 End: 12-05-2023 Start: 11-30-2023 End: 12-05-2023 Start: 04-24-2023 End: 04-24-2023 12.5 g, IntraVENous, PRN, lo w blood sugar, Blood glucose less than 70 mg/dL and patient NOT ALERT or NPO., Starting on Mon04/24/23 at 0127, If patient does not respond within 5 minutes, repeat dose x1. Start D5W at 100 mL/hour until ordering provider can be reached. Repeat blood glucose in 15 minutes. If blood glucose is less than 70 mg/dL, repeat treatment and recheck blood glucose in 15 minutes x2. If using Glucostabilizer, dose as instructed per system. Start: 04-24-2023 End: 04-24-2023 100 mL/hr, IntraVENous, PRN, Blood sugar less than 70mg/dL, Starting on Mon04/24/23 at 0127, Start infusion following administration of dextrose 50% or glucagon. Start: 07-28-2021 dextrose 40 % gel Take 15 g by mouth as needed. 0 07/28/2021 Active Start: 07-28-2021 dextrose 50% i n water solution Inject 25 mL intravenously as needed. 0 07/28/2021 Active Comment on above: Take 15 g by mouth a s needed. Inject 25 mL intrave nously as needed. 12 hr guaiFENesin 600 mg extended release oral tablet (2 sources) Start: 2024 End: 2024 take 600 mg by mouth twice daily 600 mg, Oral, 2 times daily, First dose on Meagan 05/30/24 at 1145, Administer with plenty of fluids to ensure proper action. Do not crush, chew, or split. 1 ml heparin sodium, porcine 5000 unt/ml injection (2 sources) Unfractionated Heparin, Anti-coagulant Start: 2021 inject 1.5 mL by subcutaneous injection every eight hours heparin 5,000 unit/mL injection Inject 1.5 mL subcutaneously every 8 hours. 0 07/28/2021 Active Comment on above: Inject 1.5 mL subcut aneously every 8 hours. 1 ml HYDROmorphone hydrochloride 1 mg/ml cartridge (1 source) Opioid Agonist Start: 2018 End: 2018 HYDROmorphone (DILAUDID) injection 1 mg insulin glargine 100 unt/ml injectable solution (20 sources) Insulin Analog Start: 2024 End: 2024 inject 44 [IU] by subcutaneous injection once daily 44 Units, SubCUTAneous, Nightly, First dose on Meagan 05/30/24 at 2100 Start: 11-30-2023 End: 12-05-2023 inject 48 [IU] by subcutaneous injection once daily 48 Units, SubCUTAneous, Daily, First dose on Meagan 11/30/23 at 0800 Start: 08-29-2023 Lantus SoloSta r 100 UNIT/ML pen 08/29/2023 Active Start: 04-24-2023 End: 04-24-2023 inject 44 [IU] by subcutaneous injection once daily 44 Units, SubCUTAneous, Daily, First dose on 04/24/23 at 0800 Start: 08-26-2021 inject 48 [IU] by bradford bcutaneous injection in the morning insulin glargine (Lantus) 100 UNIT/ML injection Inject 48 Units under the skin in the morning. 08/26/2021 Active Start: 08-26-2021 inject 44 [IU] by bradford bcutaneous injection in the morning insulin glargine (Lantus) 100 UNIT/ML injection Inject 44 Units under the skin in the morning. 0 08/26/2021 Active Start: 08-26-2021 inject 40 [IU] by bradford bcutaneous injection in the morning insulin glargine (Lantus) 100 UNIT/ML injection Inject 40 Units under the skin in the morning. 0 08/26/2021 Active Start: 07-28-2021 insulin glargi ne (LANTUS SOLOSTAR, BASAGLAR KWIKPEN) 100 unit/mL (3 mL) Inject 60 Units subcutaneously daily at bedtime. 0 07/28/2021 Active Start: 07-28-2021 insulin glargi ne (LANTUS SOLOSTAR, BASAGLAR KWIKPEN) 100 unit/mL (3 mL) Inject 60 Units subcutaneously daily at bedtime. 0 07/28/2021 Active Start: 09-25-2018 insulin glargi ne (BASAGLAR KWIKPEN) 100 UNIT/ML injection pen Inject 40 Units into the skin nightly 12 pen 3 09/25/2018 Active Comment on above: Inject 60 Units subc utaneously daily at bedtime. insulin lispro 100 unt/ml injectable solution (20 sources) Insulin Analog Start: 5 End: inject 16 [IU] by subcutaneous injection three times daily at mealtime 16 Units, SubCUTAneous, 3 times daily with meals, First dose (after last modification) on Mon06/01/24 at 1700 Start: 05-31-2024 End: 06-01-2024 inject 8 [IU] by subcutaneous injection three times daily at mealtime 8 Units, SubCUTAneous, 3 times daily with meals, First dose on Mon05/31/24 at 1200 Start: 11-30-2023 End: 12-05-2023 inject 16 [IU] by subcutaneous injection three times daily at mealtime 16 Units, SubCUTAneous, 3 times daily with meals, First dose on Meagan 11/30/23 at 0800 Start: 08-28-2023 HumaLOG KwikPe n 100 UNIT/ML 08/28/2023 Active Start: 04-24-2023 End: 04-24-2023 inject 16 [IU] by subcutaneous injection three times daily at mealtime 16 Units, SubCUTAneous, 3 times daily with meals, First dose on Mon04/24/23 at 0800 Start: 08-26-2021 Insulin Lispro (Humalog) 100 UNIT/ML solution injection Inject 16 Units under the skin in the morning and 16 Units at noon and 16 Units in the evening. 08/26/2021 Active Start: 08-26-2021 Insulin Lispro (Humalog) 100 UNIT/ML solution injection Inject 18 Units under the skin in the morning and 18 Units at noon and 18 Units in the evening. 0 08/26/2021 Active Start: 07-28-2021 insulin lispro (HUMALOG KWIKPEN) 100 unit/mL Inject 30 Units subcutaneously w MEALS. 0 07/28/2021 Active Start: 04-13-2022 insulin lispro (HUMALOG KWIKPEN) 100 unit/mL ADMINISTER CORRECTIONAL INSULIN REGARDLESS OF MEAL OR NUTRITION INTAKE Custom Scale. If Blood Glucose (mg/dL) is: Less than 110= 0 units, 111-150= 0 units, 151-200= 3 units, 201-250= 6 units, 251-300= 9 units, 301-350= 12 units, 351-400= 15 units, Greater than 400= 18 units, Notify provider if 2 consecutive blood glucose values in the previous 24 hours are greater than 350 mg/mL and there have been no changes to the insulin regimen in the previous 24 hours. 0 07/28/2021 Active Start: 08-07-2018 insulin lispro (HUMALOG) 100 UNIT/ML injection vial 14 units before bfast, 12 units before lunch, and 10 units before dinner 1 vial 3 08/07/2018 Active Comment on above: Inject 30 Units subc utaneously w MEALS. ADMINISTER CORRECTIO NAL INSULIN REGARDLESS OF MEAL OR NUTRITION INTAKE Custom Scale. If Blood Glucose (mg/dL) is: Less than 110= 0 units, 111-150= 0 units, 151-200= 3 units, 201-250= 6 units, 251-300= 9 units, 301-350= 12 units, 351-400= 15 units, Greater than 400= 18 units, Notify provider if 2 consecutive blood glucose values in the previous 24 hours are greater than 350 mg/mL and there have been no changes to the insulin regimen in the previous 24 hours. Insulin Lispro (Humalog) injection 0-12 Units (2 sources) Start: 07-15-2024 End: 07-17-2024 Insulin Lispro (Humalog) injection 0-12 Units insulin, regular, human 100 unt/ml injectable solution (2 sources) Insulin Start: 05-30-2024 End: 05-31-2024 0-12 Units, SubCUTAneous, Every 6 hours, First dose on Meagan 05/30/24 at 1145, 430 = 12 units labetalol hydrochloride 5 mg/ml injectable solution (2 sources) beta-Adrenergic Sonny Start: 11-30-2023 End: 12-05-2023 lidocaine hydrochloride 0.02 mg/mg topical gel (2 sources) Antiarrhythmic, Amide Local Anesthetic Start: 06-27-2024 End: 06-27-2024 lidocaine (Uro-Jet) 2 % gel Start: 06-27-2024 End: 06-27-2024 Urethral, Once, On Mon at 1130, For 1 dose 50 ml magnesium sulfate 40 mg/ml injection (2 sources) Start: 07-28-2021 magnesium sulfate 2 gram/50 mL (4 %) pgbk Inject 50 mL intravenously as needed (see admin comments). 0 07/28/2021 Active Comment on above: Inject 50 mL intrave nously as needed (see admin comments). meclizine hydrochloride 12.5 mg oral tablet (2 sources) Antiemetic Start: 11-29-2023 End: 11-29-2023 take 25 mg by mouth once 25 mg, Oral, Once, On Mon11/29/23 at 2010, For 1 dose menthol 30 mg/ml / methyl salicylate 100 mg/ml topical cream (2 sources) Start: 11-30-2023 End: 12-05-2023 Apply externally, Every 12 hours PRN, lower back, Starting on Mon11/30/23 at 0831 meropenem (Merrem) 2,000 mg in sodium chloride 0.9 % 100 mL IVPB (2 sources) Start: 05-30-2024 End: 05-30-2024 methylPREDNISolone 40 mg injection (4 sources) Corticosteroid Start: 05-31-2024 End: 06-01-2024 40 mg, IntraVENous, Every 24 hours, First dose on Mon05/31/24 at 0900 Start: 05-30-2024 End: 05-30-2024 40 mg, IntraVENous, Once, On Mon05/30/24 at 0855, For 1 dose mupirocin 0.02 mg/mg topical ointment (2 sources) RNA Synthetase Inhibitor Antibacterial Start: 05-30-2024 End: 06-03-2024 1 Application, Nasal, 2 times daily, First dose on Mon05/30/24 at 1145, For 5 days, Indications: MRSA Nasal Decolonization 1 ml naloxone hydrochloride 0.4 mg/ml injection (6 sources) Opioid Antagonist Start: 05-30-2024 End: 06-04-2024 0.4 mg, IntraVENous, Every 5 min PRN, opioid reversal, respiratory depression, over sedation, RR Start: 11-30-2023 End: 08-20-2024 0.4 mg, IntraVENous, Every 5 min PRN, opioid reversal, respiratory depression, Starting on Meagan 11/30/23 at 1329, +++ For RR Start: 04-24-2023 End: 04-24-2023 naloxone (Narcan) injection 0.4 mg nitroglycerin 0.4 mg subling ual tablet (20 sources) Nitrate Vasodilator Start: 07-15-2024 End: 07-17-2024 Start: 04-24-2023 End: 04-24-2023 0.4 mg, SubLINGual, Every 5 min PRN, chest pain, Starting on 04/24/23 at 0127, Give every 5 minutes as needed for chest pain to a maximum of 3 doses. Notify MD and obtain EKG if no relief after 3 doses or chest pain recurs. HOLD and notify MD if SBP less than 90 mmHg. Do not give if nitroglycerin infusion running concurrently. Do not give within 24 hours of sildenafil citrate (Viagra) or vardenafil (Levitra) use, or within 48 hours of tadalafil (Cialis) use. ondansetron ODT (Zofran-ODT) disintegrating tablet 4 mg (8 sources) Start: 07-15-2024 End: 07-17-2024 take 1 tablet by mouth every eight hours as needed for nausea and vomiting ondansetron ODT (Zofran-ODT) disintegrating tablet 4 mg Start: 05-30-2024 End: 06-04-2024 take 1 tablet by mouth every eight hours as needed for nausea and vomiting ondansetron ODT (Zofran-ODT) disintegrating tablet 4 mg Start: 11-30-2023 End: 12-05-2023 take 1 tablet by mouth every eight hours as needed for nausea and vomiting ondansetron ODT (Zofran-ODT) disintegrating tablet 4 mg Start: 04-24-2023 End: 04-24-2023 take 1 tablet by mouth every eight hours as needed for nausea and vomiting ondansetron ODT (Zofran-ODT) disintegrating tablet 4 mg oxyCODONE hydrochloride 5 mg oral tablet (4 sources) Opioid Agonist Start: 04-24-2023 End: 04-24-2023 take 1 tablet by mouth every four hours as needed for pain oxyCODONE (Roxicodone) immediate release tablet 10 mg Start: 04-24-2023 End: 04-24-2023 take 1 tablet by mouth every four hours as needed for pain oxyCODONE (Roxicodone) immediate release tablet 5 mg pantoprazole (ProtoNix) 40 mg in sodium chloride (PF) 0.9 % 10 mL injection (2 sources) Start: 07-15-2024 End: 07-15-2024 40 mg, IntraVENous, Administer over 2 Minutes, Once, On Mon07/15/24 at 1205, For 1 dose, Reconstitute with 10 ml NS. Vial expires 2 hrs after reconstitution. pantoprazole (ProtoNix) 80 mg in sodium chloride 0.9 % 100 mL (0.8 mg/mL) infusion (2 sources) Start: 07-15-2024 End: 07-16-2024 take 8 mg intravenously every hour 8 mg/hr (10 mL/hr), IntraVENous, Continuous, Starting on Mon07/15/24 at 1510 perflutren lipid microspheres (Definity) injection 1.65 mg (2 sources) Start: 04-27-2022 End: 04-27-2022 perflutren lipid microspheres (Definity) injection 1.65 mg perflutren protein A microsphere (Optison) 3 mL in sodium chloride (PF) 0.9 % 10 mL IV syringe (4 sources) Start: 11-30-2023 End: 11-30-2023 0-10 mL, IntraVENous, IMG once PRN, other, Suboptimal echo image, Starting on Meagan 11/30/23 at 1117, For 1 dose, CV Procedural Medications, Administer via slow IVP for suboptimal echocardiogram enhancement. May administer as divided doses to reach optimal image enhancement Start: 07-14-2023 End: 07-14-2023 perflutren protein A microsp here (Optison) 3 mL in sodium chloride (PF) 0.9 % 10 mL IV syringe polyethylene glycol [id number] mg powder for oral solution (8 sources) Osmotic Laxative Start: 07-15-2024 End: 07-17-2024 take 17 g by mouth every twenty-four hours as needed for constipation Start: 05-30-2024 End: 06-04-2024 17 g, Oral, Daily, First dos e on Me[place] 05/30/24 at 1145 Start: 11-30-2023 End: 12-05-2023 take 17 g by mouth every twenty-four hours as needed for constipation 17 g, Oral, Daily PRN, constipation, Starting on Mon11/30/23 at 0059, 1st line for treatment of constipation - give scheduled if no bowel movement in past 24 hours. Start: 04-24-2023 End: 04-24-2023 take 17 g by mouth every twenty-four hours as needed for constipation 17 g, Oral, Daily PRN, constipation, Starting on Mon04/24/23 at 0127, 1st line for treatment of constipation - give scheduled if no bowel movement in past 24 hours. potassium phosphate 155 mg / sodium phosphate, dibasic 852 mg / sodium phosphate, monobasic 130 mg oral tablet (4 sources) Start: 06-03-2024 End: 06-04-2024 1 tablet (250 mg), Oral, 2 t imes daily, First dose on Mon06/03/24 at 1415, For 4 doses, Each tablet contains 250 mg phosphorus, 298 mg sodium, 1.1 mEq potassium. Start: 07-28-2021 phosphorus (K PHOS NEUTRAL) 250 mg tablet 1 tablet by ORAL/FEEDING TUBE route PRN(NO DISPENSE) (for phosphorus less than 2.5 mg/dL - see admin instructions). 0 07/28/2021 Active Start: 07-28-2021 phosphorus (K PHOS NEUTRAL) 250 mg tablet 1 tablet by ORAL/FEEDING TUBE route PRN(NO DISPENSE) (for phosphorus less than 2.5 mg/dL - see admin instructions). 0 07/28/2021 Active Comment on above: 1 tablet by ORAL/FEE DING TUBE route PRN(NO DISPENSE) (for phosphorus less than 2.5 mg/dL - see admin instructions). pregabalin 75 mg oral capsule (20 sources) Start: 07-15-2024 End: 07-17-2024 take 150 mg by mouth twice daily 150 mg, Oral, 2 times daily, First dose on Mon07/15/24 at 2100 Start: 05-30-2024 End: 06-04-2024 take 150 mg by mouth twice daily 150 mg, Oral, 2 times daily, First dose on Mon05/30/24 at 1145 Start: 11-30-2023 End: 12-05-2023 take 150 mg by mouth twice daily 150 mg, Oral, 2 times daily, First dose on Mon11/30/23 at 0115 Start: 04-24-2023 End: 12-05-2023 take 1 capsule by mouth twice daily pregabalin (Lyrica) 150 MG capsule Indications: Pain in both knees, unspecified chronicity Take 1 capsule (150 mg) by mouth 2 times daily. 30 capsule 12/05/2023 Active take 2 capsules by m outh twice daily pregabalin (Lyrica) 75 MG capsule Take 150 mg by mouth 2 times daily. 0 Active pregabalin (LYRI CA) 75 MG capsule Take 100 mg by mouth 2 times daily. 0 Active take 1 capsule by mo uth twice daily pregabalin (LYRICA) 75 MG capsule Take 75 mg by mouth 2 times daily. 0 Active SITagliptin 25 mg oral tablet (3 sources) Dipeptidyl Peptidase 4 Inhibitor End: 04-24-2023 take 1 tablet by mouth once daily SITagliptin (Januvia) 25 MG tablet Take 25 mg by mouth daily. 0 04/24/2023 Discontinued (Therapy completed) 1000 ml sodium chloride 9 mg/ml injection (13 sources) Start: 07-15-2024 End: 07-16-2024 take 100 mL intravenously every hour 100 mL/hr, IntraVENous, Continuous, Starting on Mon07/15/24 at 1510 Start: 11-30-2023 End: 12-05-2023 take 50 mL intravenously every hour 50 mL/hr, IntraVENous, Continuous, Starting on Mon11/30/23 at 0115 Start: 04-24-2023 End: 04-24-2023 take 100 mL intravenously every hour as needed, then take 20 mL intravenously every hour as needed 5-250 mL/hr, IntraVENous, PRN, if patient receiving piggyback infusions and maintenance fluids are not ordered OR KVO fluids to protect IV site / prevent frequent line interruptions / long duration, Starting on Mon04/24/23 at 0127, For piggyback infusion, administer at same rate as piggyback for a total of 25 mL. Enter 25 mL into dose field and piggyback rate into rate field of order. If piggyback is infusing at a rate less than 100 mL/hr, enter 25 mL into dose field and 100 mL/hr into rate field of order. For KVO fluids, enter rate of 20 mL/hr or less into rate field of order. Start: 04-24-2023 End: 04-24-2023 5-40 mL, IntraVENous, PRN, l ine care, After every IV line use, Starting on Mon04/24/23 at 0127, For Line Patency: Peripheral IV = 5 mL; Midline or Central Line = 10 mL/lumen. If following IV push medication, administer flush at same rate as the IV push. Flush volume is determined by type of infusion therapy being given. For non-viscous solutions use: Peripheral IV = 5 mL Midline or Central Line = 10 mL/lumen For viscous solutions (i.e. blood components, parenteral nutrition, contrast media, or after obtaining blood sample) use: Peripheral IV = 10 mL Midline or Central Line = 20 mL/lumen Start: 04-24-2023 End: 04-24-2023 take 5-40 mL intravenously every twelve hours 5-40 mL, IntraVENous, Every 12 hours, First dose on Mon04/24/23 at 0130, For Line Patency: Peripheral IV = 5 mL; Midline or Central Line = 10 mL/lumen. If following IV push medication, administer flush at same rate as the IV push. Flush volume is determined by type of infusion therapy being given. For non-viscous solutions use: Peripheral IV = 5 mL Midline or Central Line = 10 mL/lumen For viscous solutions (i.e. blood components, parenteral nutrition, contrast media, or after obtaining blood sample) use: Peripheral IV = 10 mL Midline or Central Line = 20 mL/lumen Start: 07-28-2021 sodium chlorid e (AYR, OCEAN) 0.65 % nasal spray Use 2 Sprays in each nostril as needed. 0 07/28/2021 Active Start: 05-06-2019 End: 05-06-2019 0.9 % sodium chloride bolus Comment on above: Use 2 Sprays in each nostril as needed. tamsulosin hydrochloride 0.4 mg oral capsule (20 sources) alpha-Adrenergic Sonny Start: 07-15-2024 End: 07-17-2024 take 0.4 mg by mouth once daily 0.4 mg, Oral, Daily, First dose on Mon07/15/24 at 1510, Do not crush, chew, or split. Start: 11-30-2023 End: 12-05-2023 take 0.4 mg by mouth twice daily 0.4 mg, Oral, 2 times daily, First dose on Mon11/30/23 at 0600, Do not crush, chew, or split. Start: 04-24-2023 End: 04-24-2023 take 0.4 mg by mouth twice daily 0.4 mg, Oral, 2 times daily, First dose on Mon04/24/23 at 0600, Do not crush, chew, or split. Start: 05-21-2020 End: 06-04-2024 take 1 capsule by mouth once daily tamsulosin (Flomax) 0.4 MG 24 hr capsule Take 0.4 mg by mouth daily. 05/21/2020 Active Start: 05-21-2020 take 1 capsule by mo uth every twenty-four hours in the morning tamsulosin (Flomax) 0.4 MG 24 hr capsule Take 0.4 mg by mouth in the morning and 0.4 mg in the evening. 0 05/21/2020 Active Start: 12-12-2018 take 1 capsule by mo uth twice daily tamsulosin (FLOMAX) 0.4 MG capsule Indications: Nocturia , Urinary frequency , Benign prostatic hyperplasia with urinary frequency Take 1 capsule by mouth 2 times daily 60 capsule 11 12/12/2018 Active 10 actuat tiotropium 0.0025 mg/actuat inhalation spray (20 sources) Anticholinergic Start: 07-16-2024 End: 07-17-2024 2 puff, Inhalation, Daily, First dose on Mon07/16/24 at 1615, Instruct to hold breath for 10 seconds after each inhalation. Before first use, prime inhaler by actuating until aerosal cloud is seen, then actuating 3 more times. Start: 11-30-2023 End: 12-05-2023 take 2 puff(s) by inhalation once daily 2 puff, Inhalation, Daily, First dose on Mon11/30/23 at 0900 Start: 04-24-2023 End: 04-24-2023 18 mcg (1 capsule), Inhalati on, Daily, First dose on Mon04/24/23 at 0800, Not for oral use. To ensure drug delivery the contents of each capsule should be inhaled twice. End: 06-04-2024 take 1 capsule by inhalation in the morning tiotropium (Spiriva) [address] 1 capsule into inhaler and inhale in the morning. 2 puffs. 06/04/2024 Discontinued (Stop taking at discharge) vancomycin (Vancocin) 2500 mg in 0.9% sodium chloride 500 mL IVPB (compounded premix) (2 sources) Start: 05-30-2024 End: 05-30-2024 vitamin B12 (8 sources) Vitamin B12 Start: 12-01-2023 End: 12-05-2023 inject 1000 ug by intramuscular injection every 30 days 1,000 mcg, IntraMUSCular , Every 30 days, First dose on Mon12/01/23 at 0900 vitamin B-12 (CY ANOCOBALAMIN) 1000 MCG/ML injection Inject 1,000 mcg into the muscle once weekly. Active vitamin B-12 (CY ANOCOBALAMIN) 1000 MCG/ML injection Inject 1,000 mcg into the muscle once weekly. Active cyanocobalamin 1 000 MCG/ML injection Inject 1,000 mcg into the muscle every 7 days 0 Active cyanocobalamin 1 000 MCG/ML injection Inject 1,000 mcg into the muscle every 7 days 0 Active Problems Active Problems Problem Classification Problem Date Documented Da te Episodic/Chronic Anxiety disorders (8 sources) Anxiety state; Translations: [Generalized anxiety disorder] Onset: 2 09-05-2023 Chronic Cataract (13 sources) Nuclear sclerotic cataract; Translations: [Age-related nuclear cataract, bilateral] Onset: 0 Chronic Chronic obstructive pulmonary disease and bronchiectasis (20 sources) Chronic obstructive pulmonary disease, unspecified; Translations: [Chronic obstructive lung disease] Onset: 6 08-08-2017 Chronic Chronic ulcer of skin (2 sources) Pressure ulcer of unspecified buttock, stage 2; Translations: [Pressure ulcer of unspecified buttock, stage 2] Onset: 8 Chronic Complication of device; implant or graft (2 sources) Arteriosclerosis of coronary artery bypass graft; Translations: [Atherosclerosis of coronary artery bypass graft(s) without angina pectoris] 03-08-2024 Chronic Congestive heart failure; nonhypertensive (7 sources) Heart failure, unspecified; Translations: [Chronic combined systolic and diastolic heart failure] Onset: 8 09-05-2023 Chronic Coronary atherosclerosis and other heart disease (20 sources) Atherosclerotic heart disease of [place] coronary artery with unstable angina pectoris; Translations: [Atherosclerotic heart disease of [place] coronary artery without angina pectoris] Onset: 8 08-08-2017 Chronic Coronary atherosclerosis and other heart disease (2 sources) Presence of aortocoronary bypass graft; Translations: [Presence of aortocoronary bypass graft] Onset: 8 Episodic Delirium, dementia, and amnestic and other cognitive disorders (3 sources) Dementia; Translations: [Unspecified dementia, moderate, with psychotic disturbance] Onset: 2 09-05-2023 Chronic Diabetes mellitus with complications (20 sources) Type 2 diabetes mellitus with hyperglycemia; Translations: [Type II diabetes mellitus uncontrolled] Onset: 5 Resolved: 7 10-30-2017 Chronic Diabetes mellitus without complication (20 sources) Type 2 diabetes mellitus without complications; Translations: [Diabetes mellitus] Onset: 5 Resolved: 7 08-08-2017 Chronic Disorders of lipid metabolism (20 sources) Hyperlipidemia, unspecified; Translations: [Hyperlipidemia] Onset: 5 Resolved: 7 08-08-2017 Chronic Esophageal disorders (20 sources) Gastro-esophageal reflux disease without esophagitis; Translations: [Gastro-esophageal reflux disease with esophagitis] Onset: 6 04-26-2017 Chronic Essential hypertension (1 source) Essential (primary) hypertension; Translations: [Essential (primary) hypertension] Onset: 4 Chronic Gastrointestinal hemorrhage (10 sources) Hematemesis; Translations: [Hematemesis] Onset: 5 07-15-2024 Episodic Genitourinary symptoms and ill-defined conditions (6 sources) Unspecified urinary incontinence; Translations: [Urge incontinence of urine] Onset: 8 05-13-2024 Chronic Genitourinary symptoms and ill-defined conditions (20 sources) Retention of urine, unspecified; Translations: [Urinary tract obstruction] Onset: 6 Resolved: 7 01-09-2017 Episodic Hyperplasia of prostate (20 sources) Benign prostatic hyperplasia with lower urinary tract symptoms; Translations: [Benign prostatic hyperplasia] Onset: 7 09-07-2016 Chronic Hypertension with complications and secondary hypertension (20 sources) Hypertensive heart disease with heart failure; Translations: [Hypertensive heart disease] Onset: 6 08-08-2017 Chronic Mood disorders (3 sources) Recurrent major depressive episodes, mild ; Translations: [Major depressive disorder, recurrent, mild] Onset: 3 09-05-2023 Chronic Noninfectious gastroenteritis (20 sources) Collagenous colitis; Translations: [Collagenous colitis] Onset: 8 06-15-2017 Chronic Noninfectious gastroenteritis (2 sources) Collagenous colitis; Translations: [Collagenous colitis] Onset: 8 Nutritional deficiencies (3 sources) Vitamin D deficiency; Translations: [Vitamin D deficiency, unspecified] Onset: 2 09-05-2023 Chronic Osteoarthritis (20 sources) Bilateral primary osteoarthritis of knee; Translations: [Unspecified osteoarthritis, unspecified site] Onset: 5 Resolved: 7 12-26-2016 Chronic Other eye disorders (1 source) Bilateral epiphora of eyes; Translations: [Unspecified epiphora, bilateral] Episodic Other gastrointestinal disorders (4 sources) Irritable bowel syndrome without diarrhea; Translations: [Irritable bowel syndrome without diarrhea] Onset: 8 Chronic Other gastrointestinal disorders (20 sources) Irritable bowel syndrome; Translations: [Irritable bowel syndrome without diarrhea] Onset: 8 08-08-2017 Chronic Other gastrointestinal disorders (2 sources) Irritable bowel syndrome characterized by alternating bowel habit; Translations: [Mixed irritable bowel syndrome] Chronic Other gastrointestinal disorders (3 sources) Irritable bowel syndrome characterized by constipation; Translations: [Irritable bowel syndrome with constipation] Onset: 2 09-05-2023 Chronic Other gastrointestinal disorders (1 source) Functional diarrhea; Translations: [Functional diarrhea] 12-13-2022 Episodic Other gastrointestinal disorders (2 sources) Mixed irritable bowel syndrome; Translations: [Mixed irritable bowel syndrome] Onset: 8 Other injuries and conditions due to external causes (2 sources) Unspecified injury of head, subsequent encounter; Translations: [Unspecified injury of head, subsequent encounter] Onset: 5 Episodic Other lower respiratory disease (3 sources) Chronic pulmonary edema; Translations: [Chronic pulmonary edema] Onset: 2 09-05-2023 Chronic Other lower respiratory disease (2 sources) Hypercapnia; Translations: [Other abnormalities of breathing] 05-30-2024 Episodic Other lower respiratory disease (2 sources) Hypoxia; Translations: [Hypoxemia] 05-30-2024 Episodic Other lower respiratory disease (2 sources) Other abnormalities of breathing; Translations: [Other abnormalities of breathing] Onset: 5 Episodic Other lower respiratory disease (2 sources) Hypoxemia; Translations: [Hypoxemia] Onset: 5 Episodic Other nervous system disorders (2 sources) Polyneuropathy, unspecified; Translations: [Polyneuropathy, unspecified] Onset: 8 Chronic Other nervous system disorders (2 sources) Chronic pain syndrome; Translations: [Chronic pain syndrome] Onset: 8 Chronic Other nervous system disorders (2 sources) Cognitive communication deficit; Translations: [Cognitive communication deficit] Onset: 5 Chronic Other nervous system disorders (2 sources) Unsteadiness on feet; Translations: [Unsteadiness on feet] Onset: 5 Episodic Other nutritional; endocrine; and metabolic disorders (2 sources) Morbid (severe) obesity due to excess calories; Translations: [Morbid (severe) obesity due to excess calories] Onset: 8 Chronic Other nutritional; endocrine; and metabolic disorders (3 sources) Body mass index (BMI) 36.0-36.9, adult; Translations: [Body mass index (BMI) 36.0-36.9, adult] Onset: 8 Chronic Other nutritional; endocrine; and metabolic disorders (2 sources) Obesity, unspecified; Translations: [Obesity, unspecified] Onset: 8 Chronic Other nutritional; endocrine; and metabolic disorders (20 sources) Morbid obesity; Translations: [Morbid (severe) obesity due to excess calories] Onset: 6 08-12-2016 Chronic Other nutritional; endocrine; and metabolic disorders (6 sources) Obesity; Translations: [Obesity, unspecified] Onset: 5 Resolved: 7 01-09-2017 Chronic Other screening for suspected conditions (not mental disorders or infectious disease) (6 sources) Patient encounter status; Translations: [Encounter for screening for malignant neoplasm of colon] Onset: 5 Episodic Peripheral and visceral atherosclerosis (3 sources) Peripheral vascular disease; Translations: [Peripheral vascular disease, unspecified] Onset: 3 09-05-2023 Chronic Residual codes; unclassified (20 sources) Obstructive sleep apnea syndrome; Translations: [Obstructive sleep apnea (adult) (pediatric)] Onset: 5 Resolved: 7 08-08-2017 Chronic Residual codes; unclassified (2 sources) Sleep apnea, unspecified; Translations: [Sleep apnea, unspecified] Onset: 8 Respiratory failure; insufficiency; arrest (adult) (3 sources) Chronic hypoxemic respiratory failure; Translations: [Chronic respiratory failure with hypoxia] Onset: 2 09-05-2023 Chronic Respiratory failure; insufficiency; arrest (adult) (18 sources) Respiratory failure; Translations: [Respiratory failure, unspecified, unspecified whether with hypoxia or hypercapnia] Onset: 2 07-28-2021 Episodic Retinal detachments; defects; vascular occlusion; and retinopathy (7 sources) Nonexudative age-related macular degeneration; Translations: [Nonexudative age-related macular degeneration, bilateral, early dry stage] Onset: 2 Chronic Skin and subcutaneous tissue infections (2 sources) Cutaneous abscess of chest wall; Translations: [Cutaneous abscess of chest wall] Onset: 8 Episodic Spondylosis; intervertebral disc disorders; other back problems (3 sources) Spondylosis without myelopathy; Translations: [Spondylosis without myelopathy or radiculopathy, site unspecified] Onset: 4 09-05-2023 Chronic Spondylosis; intervertebral disc disorders; other back problems (4 sources) Chronic low back pain; Translations: [Low back pain] Onset: 4 Episodic Substance-related disorders (4 sources) Nicotine dependence, cigarettes, uncomplicated; Translations: [Nicotine dependence, cigarettes, uncomplicated] Onset: 8 Chronic Unclassified (2 sources) Obstructive sleep apnea (adult) (pediatric); Translations: [Obstructive sleep apnea (adult) (pediatric)] Onset: 8 Chronic Unclassified (3 sources) Patient encounter status 10-20-2017 Urinary tract infections (8 sources) Urinary tract infectious disease; Translations: [Recurrent urinary tract infection] Onset: 7 Resolved: 7 01-28-2017 Episodic Past or Other Problems Problem Classification Problem Date Documented Da te Episodic/Chronic Abdominal hernia (20 sources) Diaphragmatic hernia without obstruction or gangrene; Translations: [Hiatal hernia] Onset: 02-21-2017 02-21-2017 Episodic Acute and unspecified renal failure (6 sources) Acute kidney failure, unspecified; Translations: [Acute injury of kidney] Onset: 09-11-2015 Resolved: 01-09-2017 01-09-2017 Episodic Allergic reactions (8 sources) Allergy status to penicillin; Translations: [Allergy status to other drugs, medicaments and biological substances status] Onset: 09-24-2017 Episodic Bacterial infection (20 sources) Other bacterial infections of unspecified site; Translations: [Infection due to Pseudomonas aeruginosa] Onset: 12-02-2014 Resolved: 01-09-2017 10-20-2017 Episodic Complications of surgical procedures or medical care (20 sources) Other complications of procedures, not elsewhere classified, initial encounter; Translations: [Infection following a procedure, initial encounter] Onset: 10-16-2017 10-16-2017 Episodic Deficiency and other anemia (2 sources) Anemia, unspecified; Translations: [Anemia, unspecified] Onset: 11-03-2017 Episodic Deficiency and other anemia (20 sources) Anemia; Translations: [Anemia, unspecified] Onset: 05-23-2017 05-23-2017 Episodic Disorders of teeth and jaw (5 sources) Carious exposure of pulp ; Translations: [Dental caries, unspecified] Onset: 09-05-2023 09-14-2023 Episodic E Codes: Fall (6 sources) Fall; Translations: [Unspecified fall, initial encounter] Onset: 11-29-2023 11-29-2023 Episodic Esophageal disorders (3 sources) Esophagitis Onset: 10-08-2015 Resolved: 01-09-2017 01-09-2017 Episodic Fluid and electrolyte disorders (4 sources) Dehydration; Translations: [Hyperkalemia] Onset: 09-11-2015 Resolved: 09-13-2015 10-05-2015 Episodic Infective arthritis and osteomyelitis (except that caused by tuberculosis or sexually transmitted disease) (3 sources) Acute osteomyelitis of left foot Onset: 12-02-2014 Resolved: 01-09-2017 01-09-2017 Chronic Malaise and fatigue (2 sources) Weakness; Translations: [Weakness] Onset: 11-17-2023 Episodic Noninfectious gastroenteritis (20 sources) Colitis; Translations: [Noninfective gastroenteritis and colitis, unspecified] Onset: 05-21-2017 05-21-2017 Episodic Nonspecific chest pain (20 sources) Chest pain, unspecified; Translations: [Other chest pain] Onset: 08-12-2016 Resolved: 01-09-2017 08-06-2017 Episodic Other aftercare (4 sources) care home (current) use of insulin; Translations: [care home (current) use of insulin] Onset: 11-03-2017 Episodic Other aftercare (2 sources) care home (current) use of aspirin; Translations: [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 (current) use of aspirin] Onset: 12-17-2017 Episodic Other aftercare (2 sources) care home (current) use of non-steroidal anti-inflammatories (NSAID); Translations: [care home (current) use of non-steroidal non-inflam (NSAID)] Onset: 12-17-2017 Episodic Other aftercare (20 sources) Long-term current use of antibiotic; Translations: [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] Onset: 10-20-2017 01-27-2022 Episodic Other aftercare (1 source) Other detention (current) drug therapy; Translations: [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] Onset: 09-13-2023 Episodic Other and unspecified benign neoplasm (6 sources) Papilloma of left eyelid; Translations: [Other benign neoplasm of skin of left upper eyelid, including canthus] Onset: 05-05-2021 Episodic Other bone disease and musculoskeletal deformities (3 sources) Disorder of bone; Translations: [Other specified disorders of bone density and structure, left hand] Onset: 05-23-2022 09-05-2023 Episodic Other circulatory disease (2 sources) Hypotension, unspecified; Translations: [Hypotension, unspecified] Onset: 08-07-2017 Episodic Other connective tissue disease (2 sources) Plantar fascial fibromatosis; Translations: [Plantar fascial fibromatosis] Onset: 08-07-2017 Episodic Other connective tissue disease (3 sources) Tear of left rotator cuff Onset: 10-23-2014 Resolved: 01-09-2017 01-09-2017 Episodic Other connective tissue disease (3 sources) Bursitis of shoulder Onset: 10-23-2014 Resolved: 01-09-2017 01-09-2017 Episodic Other connective tissue disease (2 sources) Muscle weakness (generalized); Translations: [Muscle weakness (generalized)] Onset: 11-17-2023 Episodic Other gastrointestinal disorders (2 sources) Constipation, unspecified; Translations: [Constipation, unspecified] Onset: 08-07-2017 Episodic Other infections; including parasitic (3 sources) Personal history of other infectious and parasitic diseases; Translations: [Personal history of COVID-19] Onset: 12-06-2021 09-05-2023 Episodic Other injuries and conditions due to external causes (20 sources) Closed injury of head; Translations: [Unspecified injury of head, initial encounter] Onset: 11-29-2023 11-29-2023 Episodic Other injuries and conditions due to external causes (2 sources) Unspecified injury of head, initial encounter; Translations: [Unspecified injury of head, initial encounter] Onset: 11-29-2023 Episodic Other liver diseases (3 sources) Steatosis of liver Onset: 10-23-2014 Resolved: 01-09-2017 01-09-2017 Chronic Other nervous system disorders (3 sources) Neuropathy Onset: 10-23-2014 Resolved: 01-09-2017 01-09-2017 Chronic Other nervous system disorders (2 sources) Acute post-thoracotomy pain; Translations: [Acute post-thoracotomy pain] Onset: 10-16-2017 Episodic Other nervous system disorders (2 sources) Unspecified lack of coordination; Translations: [Unspecified lack of coordination] Onset: 11-17-2023 Episodic Other non-traumatic joint disorders (3 sources) Loose body in joint Onset: 10-23-2014 Resolved: 01-09-2017 01-09-2017 Chronic Other non-traumatic joint disorders (20 sources) Pain in left shoulder; Translations: [Pain in joint, shoulder region] Onset: 10-23-2014 01-27-2022 Episodic Other non-traumatic joint disorders (9 sources) Shoulder pain; Translations: [Pain in left shoulder] Onset: 10-23-2014 10-23-2014 Episodic Other non-traumatic joint disorders (3 sources) Knee pain Onset: 10-23-2014 10-23-2014 Episodic Other non-traumatic joint disorders (3 sources) Disorder of shoulder Onset: 10-23-2014 Resolved: 01-09-2017 01-09-2017 Episodic Other non-traumatic joint disorders (20 sources) Pain in right knee; Translations: [Pain in joint, lower leg] Onset: 10-23-2014 01-27-2022 Episodic Other non-traumatic joint disorders (2 sources) Pain in left knee; Translations: [Pain in left knee] Onset: 01-27-2022 Episodic Other upper respiratory disease (3 sources) Rhinitis Onset: 10-23-2014 Resolved: 01-09-2017 01-09-2017 Chronic Otitis media and related conditions (3 sources) Otitis media Onset: 10-23-2014 Resolved: 01-09-2017 01-09-2017 Episodic Charis-; endo-; and myocarditis; cardiomyopathy (except that caused by tuberculosis or sexually transmitted disease) (3 sources) Chronic pericarditis Onset: 02-03-2017 Resolved: 08-08-2017 08-08-2017 Episodic Pleurisy; pneumothorax; pulmonary collapse (4 sources) Pyothorax with fistula; Translations: [Atelectasis] Onset: 08-07-2017 Episodic Residual codes; unclassified (2 sources) Acquired absence of other specified parts of digestive tract; Translations: [Acquired absence of other specified parts of digestive tract] Onset: 12-17-2017 Episodic Residual codes; unclassified (20 sources) Tobacco user; Translations: [Tobacco use] Onset: 10-23-2014 08-08-2017 Episodic Residual codes; unclassified (3 sources) Noncompliance with treatment; Translations: [Patient's noncompliance with other medical treatment and regimen due to unspecified reason] Onset: 01-15-2022 09-05-2023 Episodic Unclassified (4 sources) Physical restraint status; Translations: [Acquired absence of other specified parts of digestive tract] Onset: 08-07-2017 Episodic Results Test Name Value Interpretation Reference Range Facility 30on 07-17-2024 30 Normal [facility] 30 Normal [facility] CBC (HEMOGRAM)on 07-17-2024 Erythrocyte distribution width (RBC) [Ratio] 15.9 % High 11.5-15.0 [facility] Comment on above: Performed By: #### L [id number] ####Nurse Research: CLARE WINTERDaniloKRISTYN ([phone])[facility]ITAL[facility] JARABERNADINE (SBHLAB)[address] [place] [address] Hematocrit (Bld) [Volume fraction] 30.8 % Low 40.0-52.0 [facility] Comment on above: Performed By: #### L [id number] ####Nurse Research: CLARE JOSELUIS ([phone])[facility]ITALP[facility]ALBUQU[facility] CLINICAlysa (SBHLAB)[address] Hemoglobin (Bld) [Mass/Vol] 9.2 g/dL Low 13.0-18.0 [facility] Comment on above: Performed By: #### L [id number] ####Nurse Research: CLARE JOSELUIS ([phone])[facility]ITAL[facility]ARAALBU[facility] CLINICAlysa (SBAB)[address] [place] [address] MCH (RBC) [Entitic mass] 27.3 pg Normal 26.0-34.0 [facility] Comment on above: Performed By: #### L [id number] ####Nurse Research: CLARE WINTERDaniloKRISTYN ([phone])[facility]ITALP[facility]eto [facility] [place] ([facility])[address] [place] [address] MCHC 29.9 % Low 30.5-36.0 [facility] Comment on above: Performed By: #### L AB294 ####Nurse Research: CLARE HUGGINS ([phone])[facility]ITAL[facility]INICAlysa (SBHLAB)[address] [place] [address] MCV (RBC) [Entitic vol] 91.4 fL Normal 77.0-99.0 [facility] Comment on above: Performed By: #### L [id number] ####Nurse Research: CLARE HUGGINS ([phone])[facility]ITALP[facility]eto [facility] CENTERAlysa (SBHLAB)[address] [place] [address] Platelet mean volume (Bld) [Entitic vol] 9.8 fL Normal 9.0-12.7 [facility] Comment on above: Performed By: #### L [id number] ####Nurse Research: CLARE WINTERDaniloKRISTYN ([phone])[facility]ITALP[facility]eto [place] (SBHLAB)[address] Platelets (Bld) [#/Vol] 202 10*3/uL Normal 140-440 [facility] Comment on above: Performed By: #### L [id number] ####Nurse Research: CLARE BELLOCER ([phone])[facility]ITALP[facility]eto [place] (SBHLAB)[address] RBC (Bld) [#/Vol] 3.37 10*6/uL Low 4.40-5.90 [facility] Comment on above: Performed By: #### L [id number] ####Nurse Research: CLARE MERCERKRISTYN ([phone])[facility]ITALP[facility]eto WAKEFIEDLN (SBHLAB)[address] [place] [address] WBC (Bld) [#/Vol] 6.3 10*3/uL Normal 3.6-10.7 [facility] Comment on above: Performed By: #### L [id number] ####Nurse Research: CLARE MERCERKRISTYN ([phone])[facility]ITALP[facility] [place] (SBHLAB)[address] [place] [address] CBC panel Auto (Bld)Ordered By: Amador Saenz on 07-17-2024 Erythrocyte distribution width (RBC) [Ratio] 15.9 % High 11.5 - 15.0 % [facility] Hematocrit (Bld) [Volume fraction] 30.8 % Low 40.0 - 52.0 % [facility] Hemoglobin (Bld) [Mass/Vol] 9.2 g/dL Low 13.0 - 18.0 g/dL [facility] Interpretation and review of laboratory results Abnormal [facility] MCH (RBC) [Entitic mass] 27.3 pg 26. 0 - 34.0 pg [facility] MCHC (RBC) [Mass/Vol] 29.9 % Low 30.5 - 36.0 % [facility] MCV (RBC) [Entitic vol] 91.4 fL 77.0 - 99.0 fL [facility] Platelet mean volume (Bld) [Entitic vol] 9.8 fL 9.0 - 12.7 fL [facility] Platelets (Bld) [#/Vol] 202 10*3/uL 140 - 440 10*3/uL [facility] RBC (Bld) [#/Vol] 3.37 10*6/uL Low 4.40 - 5.9 0 10*6/uL [facility] WBC (Bld) [#/Vol] 6.3 10*3/uL 3.6 - 10.7 10*3/uL [facility] COMPREHENSIVE METABOLIC PANE Cricket 07-17-2024 Albumin [Mass/Vol] 2.6 g/dL Low 3.4-4.8 [facility] Comment on above: Performed By: #### L AB17 ####Nurse Research: CLARE HUGGINS ([phone])[facility]PITALA [place] (SBHLAB)[address] ALP [Catalytic activity/Vol] 85 U/L Normal 40-150 [facility] Comment on above: Performed By: #### L AB17 ####Nurse Research: CLARE HUGGINS ([phone])[facility]ITALA [place] (SBHLAB)[address] ALT [Catalytic activity/Vol] U/L Normal <40 [facility] Comment on above: Performed By: #### L AB17 ####Nurse Research: CLARE HUGGINS ([phone])[facility]ITALA [place] (SBHLAB)[address] Anion gap [Moles/Vol] 11 mmol/L Normal 3-13 [facility] Comment on above: Performed By: #### L AB17 ####Nurse Research: CLARE HUGGINS ([phone])[facility]ITALA [place] (SBHLAB)[address] AST [Catalytic activity/Vol] 10 U/L Normal <34 [facility] Comment on above: Performed By: #### L AB17 ####Nurse Research: CLARE HUGGINS ([phone])[facility]ITALA [place] (SBHLAB)[address] Bilirubin [Mass/Vol] 0.2 mg/dL Normal <1.2 [facility] Comment on above: Performed By: #### L AB17 ####Nurse Research: CLARE HUGGINS ([phone])[facility]ITALP[facility] [place] (SBHLAB)[address] Calcium [Mass/Vol] 8.7 mg/dL Low 8.8-10.0 [facility] Comment on above: Performed By: #### L AB17 ####Nurse Research: CLARE HUGGINS ([phone])[facility]ITALP[facility]eto [place] (SBHLAB)[address] Chloride [Moles/Vol] 111 mmol/L High 98-107 [facility] Comment on above: Performed By: #### L AB17 ####Nurse Research: CLARE HUGGINS ([phone])[facility]ITALA [place] (SBHLAB)[address] CO2 [Moles/Vol] 20 mmol/L Low 23-31 [facility] Comment on above: Performed By: #### L AB17 ####Nurse Research: CLARE HUGGINS ([phone])[facility]ITALA [place] (SBHLAB)[address] Creatinine [Mass/Vol] 1.09 mg/dL Normal 0.72-1.25 [facility] Comment on above: Performed By: #### L AB17 ####Nurse Research: CLARE HUGGINS ([phone])[facility]PITALPrieto [place] (SBHLAB)[address] [place] [address] [place] GLOMERULAR FILTRATION RATE ML/MIN/1.73 SQ M.PREDICTED 74.4 mL/min/1.73m*2 Normal >60.0 [facility] Comment on above: Result Comment: Calc ulation based on the Chronic Kidney Disease Epidemiology Collaboration (CKD-EPI) equation refit without adjustment for race Performed By: #### L AB17 ####Nurse Research: CLARE HUGGINS ([phone])NICOLE [place] (SBHLAB)[address] Glucose [Mass/Vol] 228 mg/dL High 82-115 [facility] Comment on above: Performed By: #### L AB17 ####Nurse Research: CLARE HUGGINS ([phone])[facility]ITALP[facility] [place] (SBHLAB)[address] Potassium [Moles/Vol] 4.3 mmol/L Normal 3.5-5.1 [facility] Comment on above: Result Comment: [facility] potassium values may be up to 0.5 mmol/L lower than serum values. Performed By: #### L AB17 ####Nurse Research: CLARE HUGGINS ([phone])[facility]ITALP[facility] [place] (SBHLAB)[address] Protein [Mass/Vol] 5.5 g/dL Low 6.4-8.3 [facility] Comment on above: Performed By: #### L AB17 ####Nurse Research: CLARE HUGGINS ([phone])[facility] (SBHLAB)[address] Sodium [Moles/Vol] 142 mmol/L Normal 136-145 [facility] Comment on above: Performed By: #### L AB17 ####Nurse Research: CLARE HUGGINS ([phone])[facility] (SBHLAB)[address] Urea nitrogen [Mass/Vol] 28 mg/dL High 9-23 [facility] Comment on above: Performed By: #### L AB17 ####Nurse Research: CLARE HUGGINS ([phone])[facility] (SBHLAB)[address] Comprehensive metabolic 1998 panelon 07-17-2024 Albumin [Mass/Vol] 2.6 g/dL Low 3.4 - 4.8 g/dL [facility] ALP [Catalytic activity/Vol] 85 U/L 40 - 150 U/L [facility] ALT [Catalytic activity/Vol] U/L NINF - 40 U/L [facility] Anion gap [Moles/Vol] 11 mmol/L 3 - 13 mmol/L [facility] AST [Catalytic activity/Vol] 10 U/L NINF - 34 U/L [facility] Bilirubin [Mass/Vol] 0.2 mg/dL NINF - 1.2 mg/dL [facility] Calcium [Mass/Vol] 8.7 mg/dL Low 8.8 - 10. 0 mg/dL [facility] Chloride [Moles/Vol] 111 mmol/L High 98 - 10 7 mmol/L [facility] CO2 [Moles/Vol] 20 mmol/L Low 23 - 31 mmol/L [facility] Creatinine [Mass/Vol] 1.09 mg/dL 0.72 - 1.25 mg/dL [facility] GFR/1.73 sq M.predicted (S/P/Bld) [Vol rate/Area] 74.4 mL/min - PINF [facility] Comment on above: Calculation based on the Chronic Kidney Disease Epidemiology Collaboration (CKD-EPI) equation refit without adjustment for race Glucose [Mass/Vol] 228 mg/dL High 82 - 115 mg/dL [facility] Interpretation and review of laboratory results Abnormal [facility] Potassium [Moles/Vol] 4.3 mmol/L 3.5 - 5.1 mmol/L [facility] Comment on above: Plasma potassium adriana ues may be up to 0.5 mmol/L lower than serum values. Protein [Mass/Vol] 5.5 g/dL Low 6.4 - 8.3 g/dL [facility] Sodium [Moles/Vol] 142 mmol/L 136 - 145 mmol/L [facility] Urea nitrogen [Mass/Vol] 28 mg/dL High 9 - 23 mg/dL [facility] - Chemistry and C hemistry - challengeon 07-17-2024 Glucose [Mass/Vol] 253 mg/dL High 70 - 100 mg/dL [facility] Glucose [Mass/Vol] 233 mg/dL High 70 - 100 mg/dL [facility] Glucose [Mass/Vol] 238 mg/dL High 70 - 100 mg/dL [facility] No Panel Informationon 07-17 Interpretation and review of laboratory results Abnormal [facility] Performed by: [facility], [address] [place] [address] CLIA ID: [id number] [facility] Interpretation and review of laboratory results Abnormal [facility]formed [facility]: [facility], [address] [place] [address] CLIA ID: [id number] [facility] Interpretation and review of laboratory results Abnormal [facility] Performed by: [facility], [address] [facility] [address] CLIA ID: [id number] [facility] Nursing Noteon 07-17-2024 Nursing Note Normal [facility] Progress Noteon 07-17-2024 Progress Note Normal [facility] Progress Note Normal [facility] Progress Note Nutrition rescreen completed. Chart reviewed. Patient to be monitored and followed by the diet plasma center technician. Normal [facility] [id number] 07-16-2024 [id number] Normal [facility] [id number] 07-16-2024 [id number] Normal [facility] 30on 07-16-2024 30 Normal [facility] Anesthesia Noteon 07-16-2024 Anesthesia Note Normal [facility] Anesthesia Note Normal [facility] CBC (HEMOGRAM)on 07-16-2024 Erythrocyte distribution width (RBC) [Ratio] 15.9 % High 11.5-15.0 [facility] Comment on above: Performed By: #### L [id number] ####Nurse Research: CLARE HUGGINS ([phone])[facility] ([facility])[address] [place] [address] [place] Hematocrit (Bld) [Volume fraction] 31.0 % Low 40.0-52.0 [facility] Comment on above: Performed By: #### L [id number] ####Nurse Research: CLARE HUGGINS ([phone])[facility] ([facility])[address] [place] [address] Hemoglobin (Bld) [Mass/Vol] 9.0 g/dL Low 13.0-18.0 [facility] Comment on above: Performed By: #### L [id number] ####Nurse Research: CLARE [id number])[place] (SBHLAB)[address] MCH (RBC) [Entitic mass] 26.8 pg Normal 26.0-34.0 [facility] Comment on above: Performed By: #### L [id number] ####Nurse Research: CLARE HUGGINS ([phone])[facility] [place] (SBHLAB)[address] MCHC 29.0 % Low 30.5-36.0 [facility] Comment on above: Performed By: #### L [id number] ####Nurse Research: CLARE HUGGINS ([phone])[facility] [place] (SBHLAB)[address] MCV (RBC) [Entitic vol] 92.3 fL Normal 77.0-99.0 S [facility] Comment on above: Performed By: #### L [id number] ####Nurse Research: CLARE HUGGINS ([phone])[facility]ITAL[facility] [place] (SBHLAB)[address] Platelet mean volume (Bld) [Entitic vol] 10.2 fL Normal 9.0-12.7 [facility] Comment on above: Performed By: #### L [id number] ####Nurse Research: CLARE HUGGINS ([phone])[facility]ITAL[facility] [place] (SBHLAB)[address] [place] [address] [place] Platelets (Bld) [#/Vol] 194 10*3/uL Normal 140-440 [facility] Comment on above: Performed By: #### L [id number] ####Nurse Research: CLARE HUGGINS ([id number])[facility] [place] (SBHLAB)[address] [place] [address] [place] RBC (Bld) [#/Vol] 3.36 10*6/uL Low 4.40-5.90 [facility] Comment on above: Performed By: #### L [id number] ####Nurse Research: CLARE HUGGINS ([phone])[facility]ITAL[facility] (SBHLAB)[address] WBC (Bld) [#/Vol] 7.3 10*3/uL Normal 3.6-10.7 [facility] Comment on above: Performed By: #### L [id number] ####Nurse Research: CLARE HUGGINS ([phone])[facility] (SBHLAB)[address] CBC panel Auto (Bld)on 07-16 Erythrocyte distribution width (RBC) [Ratio] 15.9 % High 11.5 - 15.0 % [facility] Hematocrit (Bld) [Volume fraction] 31 % Low 40.0 - 52.0 % [facility] Hemoglobin (Bld) [Mass/Vol] 9 g/dL Low 13.0 - 18.0 g/dL [facility] Interpretation and review of laboratory results Abnormal [facility] MCH (RBC) [Entitic mass] 26.8 pg 26. 0 - 34.0 pg [facility] MCHC (RBC) [Mass/Vol] 29 % Low 30.5 - 36.0 % [facility] MCV (RBC) [Entitic vol] 92.3 fL 77.0 - 99.0 fL [facility] Platelet mean volume (Bld) [Entitic vol] 10.2 fL 9.0 - 12.7 fL [facility] Platelets (Bld) [#/Vol] 194 10*3/uL 140 - 440 10*3/uL [facility] RBC (Bld) [#/Vol] 3.36 10*6/uL Low 4.40 - 5.9 0 10*6/uL [facility] WBC (Bld) [#/Vol] 7.3 10*3/uL 3.6 - 10.7 10*3/uL [facility] COMPREHENSIVE METABOLIC PANE Cricket 07-16-2024 Albumin [Mass/Vol] 2.5 g/dL Low 3.4-4.8 [facility] Comment on above: Performed By: #### L AB17 ####Nurse Research: CLARE HUGGINS ([phone])[facility] (SBHLAB)[address] [place] [address] ALP [Catalytic activity/Vol] 81 U/L Normal 40-150 [facility] Comment on above: Performed By: #### L AB17 ####Nurse Research: CLARE MERCERKRISTYN ([phone])[facility] [place] (SBHLAB)[address] ALT [Catalytic activity/Vol] 9 U/L Normal <40 [facility] Comment on above: Performed By: #### L AB17 ####Nurse Research: CLARE MERCERKRISTYN ([phone])[facility] [place] (HLAB)[address] Anion gap [Moles/Vol] 8 mmol/L Normal 3-13 [facility] Comment on above: Performed By: #### L AB17 ####Nurse Research: CLARE MERCERKRISTYN ([phone])[facility]A [facility])[address] AST [Catalytic activity/Vol] 16 U/L Normal <34 [facility] Comment on above: Performed By: #### L AB17 ####Nurse Research: CLARE HUGGINS ([phone])[facility] [place] (HLAB)[address] Bilirubin [Mass/Vol] 0.3 mg/dL Normal <1.2 [facility] Comment on above: Performed By: #### L AB17 ####Nurse Research: CLARE HUGGINS ([id number])[facility]A BARBALBUQU[facility]N ([facility])[address] Calcium [Mass/Vol] 8.5 mg/dL Low 8.8-10.0 [facility] Comment on above: Performed By: #### L AB17 ####Nurse Research: CLARE HUGGINS ([phone])[facility]A BARBALBUQUERQUE [facility]DI[facility] D[facility]AL CLINICN (SBHLAB)[address] Chloride [Moles/Vol] 111 mmol/L High 98-107 [facility] Comment on above: Performed By: #### L AB17 ####Nurse Research: CLARE JOSELUIS ([id number])[facility] (SBHLAB)[address] CO2 [Moles/Vol] 20 mmol/L Low 23-31 [facility] Comment on above: Performed By: #### L AB17 ####Nurse Research: CLARE JOSELUIS ([phone])[facility] (SBHLAB)[address] Creatinine [Mass/Vol] 1.17 mg/dL Normal 0.72-1.25 [facility] Comment on above: Performed By: #### L AB17 ####Nurse Research: CLARE JOSELUIS ([id number])[facility] (HLAB)[address] GLOMERULAR FILTRATION RATE ML/MIN/1.73 SQ M.PREDICTED 68.3 mL/min/1.73m*2 Normal >60.0 [facility] Comment on above: Result Comment: Calc ulation based on the Chronic Kidney Disease Epidemiology Collaboration (CKD-EPI) equation refit without adjustment for race Performed By: #### L AB17 ####Nurse Research: CLARE JOSELUIS ([id number])[facility] (HLAB)[address] Glucose [Mass/Vol] 186 mg/dL High 82-115 [facility] Comment on above: Performed By: #### L AB17 ####Nurse Research: CLARE WINTERVERN ([phone])[facility] (SBHLAB)[address] [place] [address] [place] Potassium [Moles/Vol] 4.3 mmol/L Normal 3.5-5.1 [facility] Comment on above: Result Comment: [facility] potassium values may be up to 0.5 mmol/L lower than serum values. Performed By: #### L AB17 ####Nurse Research: CLARE JOSELUIS ([phone])[facility] (SBHLAB)[address] [place] [address] [place] Protein [Mass/Vol] 5.5 g/dL Low 6.4-8.3 [facility] Comment on above: Performed By: #### L AB17 ####Nurse Research: CLARE HUGGINS ([phone])[facility]ITAL[facility] [place] (SBHLAB)[address] Sodium [Moles/Vol] 139 mmol/L Normal 136-145 [facility] Comment on above: Performed By: #### L AB17 ####Nurse Research: CLARE HUGGINS ([phone])[facility]ITALP[facility] (SBHLAB)[address] Urea nitrogen [Mass/Vol] 32 mg/dL High 9-23 [facility] Comment on above: Performed By: #### L AB17 ####Nurse Research: CLARE HUGGINS ([phone])[facility] (SBHLAB)[address] Comprehensive metabolic 1998 panelon 07-16-2024 Albumin [Mass/Vol] 2.5 g/dL Low 3.4 - 4.8 g/dL [facility] ALP [Catalytic activity/Vol] 81 U/L 40 - 150 U/L [facility] ALT [Catalytic activity/Vol] 9 U/L [facility] - 40 U/L [facility] Anion gap [Moles/Vol] 8 mmol/L 3 - 13 mmol/L [facility] AST [Catalytic activity/Vol] 16 U/L [facility] - [facility] U/L [facility] Bilirubin [Mass/Vol] 0.3 mg/dL NINF - 1.2 mg/dL [facility] Calcium [Mass/Vol] 8.5 mg/dL Low 8.8 - 10. 0 mg/dL [facility] Chloride [Moles/Vol] 111 mmol/L High 98 - 10 7 mmol/L [facility] CO2 [Moles/Vol] 20 mmol/L Low 23 - 31 mmol/L [facility] Creatinine [Mass/Vol] 1.17 mg/dL 0.72 - 1.25 mg/dL [facility] GFR/1.73 sq M.predicted (S/P/Bld) [Vol rate/Area] 68.3 mL/min - PINF [facility] Comment on above: Calculation based on the Chronic Kidney Disease Epidemiology Collaboration (CKD-EPI) equation refit without adjustment for race Glucose [Mass/Vol] 186 mg/dL High 82 - 115 mg/dL [facility] Interpretation and review of laboratory results Abnormal [facility] Potassium [Moles/Vol] 4.3 mmol/L 3.5 - 5.1 mmol/L [facility] Comment on above: Plasma potassium adriana ues may be up to 0.5 mmol/L lower than serum values. Protein [Mass/Vol] 5.5 g/dL Low 6.4 - 8.3 g/dL [facility] Sodium [Moles/Vol] 139 mmol/L 136 - 145 mmol/L [facility] Urea nitrogen [Mass/Vol] 32 mg/dL High 9 - 23 mg/dL [facility] Consulton 07-16-2024 Consult Normal [facility] Consult Normal [facility] HEMOGLOBIN AND HEMATOCRIT, B LOODon 07-16-2024 Hematocrit (Bld) [Volume fraction] 28.9 % Low 40.0-52.0 [facility] Comment on above: Performed By: #### L [id number] ####Nurse Research: CLARE HUGGINS ([id number])[facility] ([facility])[address] [place] [address] Hemoglobin (Bld) [Mass/Vol] 8.5 g/dL Low 13.0-18.0 [facility] Comment on above: Performed By: #### L AB753 ####Nurse Research: CLARE HUGGINS ([phone])[facility])[address] [place] [address] Hematocrit (Bld) [Volume fraction] 30.2 % Low 40.0-52.0 [facility] Comment on above: Performed By: #### L AB753 ####Nurse Research: CLARE HUGGINS ([phone])[facility])[address] Hemoglobin (Bld) [Mass/Vol] 9.1 g/dL Low 13.0-18.0 [facility] Comment on above: Performed By: #### L AB753 ####Nurse Research: CLARE HUGGINS ([phone])[facility]ITALPrieto [place]DA[place] (SBHLAB)[address] [place] [address] [place] Hemoglobin (Bld) [Mass/Vol]o n 07-16-2024 Hematocrit (Bld) [Volume fraction] 28.9 % Low 40.0 - 52.0 % [facility] Interpretation and review of laboratory results Abnormal [facility] Hemoglobin (Bld) [Mass/Vol]O rdered By: Verónica Kitchen on 07-16-2024 Hematocrit (Bld) [Volume fraction] 30.2 % Low 40.0 - 52.0 % [facility] Interpretation and review of laboratory results Abnormal [facility] IRON AND TIBCon 07-16-2024 IRON BINDING CAPACITY 265 ug/dL Normal 250-450 [facility] Comment on above: Performed By: #### L [id number] ####Nurse Research: CLARE HUGGINS ([id number])[facility] (SBHLAB)[address] IRON SATURATION 10.6 % Low 20.0-50.0 [facility] Comment on above: Performed By: #### L AB829 ####Nurse Research: CLARE HUGGINS ([phone])[facility] (SBHLAB)[address] IRON, TOTAL 28 ug/dL Low 65-175 [facility] Comment on above: Performed By: #### L [id number] ####Nurse Research: CLARE HUGGINS ([phone])[facility] (SBHLAB)[address] [place] [address] [place] Iron and Iron binding capaci ty panelon 07-16-2024 Interpretation and review of laboratory results Abnormal [facility] Iron [Mass/Vol] 28 ug/dL Low 65 - 175 ug/dL [facility] Iron binding capacity [Mass/Vol] 265 ug/dL 250 - 450 ug/dL [facility] Iron saturation [Mass fraction] 10.6 % Low 20.0 - 50.0 % [facility] Laboratory - Chemistry and C hemistry - challengeon 07-16-2024 Glucose [Mass/Vol] 268 mg/dL High 70 - 100 mg/dL [facility] Glucose [Mass/Vol] 296 mg/dL High 70 - 100 mg/dL [facility] Glucose [Mass/Vol] 219 mg/dL High 70 - 100 mg/dL [facility] Glucose [Mass/Vol] 194 mg/dL High 70 - 100 mg/dL [facility] Laboratory - Coagulationon 0 07-16-2024 aPTT Coag (PPP) [Time] 30.2 s 20.0 - 30.5 s [facility] INR Coag (PPP) [Relative time] 1 {INR} 0.9 - 1.1 [facility] Comment on above: Recommended Anticoag ulant Therapy: SEE BELOW ----- INR of 2.0 - 3.0 : - Prophylaxis of Venous Thrombosis (high-risk surgery) - Treatment of Venous Thrombosis - Treatment of Pulmonary Embolism (Includes tissue heart valves, Acute Myocardial Infarction to prevent systemic embolism, Valvular Heart Disease, and Atrial Fibrillation) ----- INR of 2.5 - 3.5 : - Mechanical Prosthetic Valves (high risk) - If oral anticoagulant therapy is used to prevent Myocardial Infarction PT Coag (Bld) [Time] 11.5 s 9.0 - 1 2.0 s [facility] Laboratory - Hematology and Cell countson 07-16-2024 Hemoglobin (Bld) [Mass/Vol] 8.5 g/dL Low 13.0 - 18.0 g/dL [facility] Laboratory - Hematology and Cell countsOrdered By: Verónica Kitchen on 07-16-2024 Hemoglobin (Bld) [Mass/Vol] 9.1 g/dL Low 13.0 - 18.0 g/dL [facility] No Panel Informationon 07-16 Interpretation and review of laboratory results Abnormal [facility]: [facility], [address] [place] [address] CLIA ID: [id number] [facility] Interpretation and review of laboratory results Abnormal [facility] Performed by: [facility], [address] [facility] [address] CLIA ID: [id number] [facility] Interpretation and review of laboratory results Abnormal [facility] Performed by: [facility], [address] [address] CLIA ID: [id number] [facility] Interpretation and review of laboratory results Abnormal [facility] Performed by: [facility], [address] [address] CLIA ID: [id number] [facility] Interpretation and review of laboratory results Normal [facility] Op Noteon 07-16-2024 Op Note Normal [facility] PROTIME AND APTTon aPTT Coag (Bld) [Time] 30.2 s Normal 20.0-30.5 [facility] Comment on above: Performed By: #### L [id number] ####Nurse Research: CLARE HUGGINS ([phone])[facility] (SB[facility])[address] [place] [address] INR Coag (PPP) [Relative time] 1.0 {INR} Normal 0.9-1.1 [facility] Comment on above: Result Comment: Lux mmended Anticoagulant Therapy: SEE BELOW----- INR of 2.0 - 3.0 : - Prophylaxis of Venous Thrombosis (high-risk surgery) - Treatment of Venous Thrombosis - Treatment of Pulmonary Embolism (Includes tissue heart valves, Acute Myocardial Infarction to prevent systemic embolism, Valvular Heart Disease, and Atrial Fibrillation)----- INR of 2.5 - 3.5 : - Mechanical Prosthetic Valves (high risk) - If oral anticoagulant therapy is used to prevent Myocardial Infarction Performed By: #### L [id number] ####Nurse Research: CLARE HUGGINS ([phone])[facility] (SBHL[facility])[address] [place] [address] PT Coag (PPP) [Time] 11.5 s Normal 9.0-12.0 [facility] Comment on above: Performed By: #### L [id number] ####Nurse Research: CLARE HUGGINS ([phone])[facility] (SBHL[facility])[address] [place] [address] Progress Noteon 07-16-2024 Progress Note Normal [facility] Progress Note Normal [facility] Progress Note Normal [facility] [id number] 07-15-2024 [id number] Per zachary davis connie is fpc and bedhold at [facility] and can return when medically stable. . Normal [facility] BLOOD GAS ARTERIALon 025 AMOUNT OF OXYGEN 6 Normal [facility] Comment on above: Performed By: #### L [id number] ####Nurse Research: CLARE HUGGINS ([phone])[facility] [place] (SBHL[facility])[address] [place] [address] Base excess Calc (Bld) [Moles/Vol] -3.3000 mmol/L Low -3.0-3.0 [facility] Comment on above: Performed By: #### L [id number] ####Nurse Research: CLARE HUGGINS ([phone])[facility] [place] (SBHL[facility])[address] [place] [address] [place] CO2 [Moles/Vol] 24.4 mmol/L Normal 22.0-28.0 [facility] Comment on above: Performed By: #### L [id number] ####Nurse Research: CLARE HUGGINS ([phone])[facility] [place] (SB[facility])[address] [place] [address] [place] HCO3 (Bld) [Moles/Vol] 22.9 mmol/L Normal 21.0-27.0 [facility] Comment on above: Performed By: #### L [id number] ####Nurse Research: CLARE HUGGINS ([phone])[facility] [place] (SB[facility])[address] [place] [address] [place] Hemoglobin (Bld) [Mass/Vol] 11.4 g/dL Low Screen only [facility] Comment on above: Performed By: #### L [id number] ####Nurse Research: CLARE HUGGINS ([phone])[facility] [place] (SBHL[facility])[address] OXYGEN SATURATION (%) IN ARTERIAL BLOOD 92.2 % Low 97.0-99.0 [facility] Comment on above: Performed By: #### L [id number] ####Nurse Research: CLARE HUGGINS ([phone])[facility] ([facility])[address] PCO2 ARTERIAL 46.3 mm Hg Normal 35.0-48.0 [facility] Comment on above: Performed By: #### L [id number] ####Nurse Research: CLARE HUGGINS ([phone])[facility] (SB[facility])[address] PH ARTERIAL 7.313 Low 7.350-7.450 [facility] Comment on above: Performed By: #### L [id number] ####Nurse Research: CLARE HUGGINS ([phone])[facility] PO2 ARTERIAL 70.1 mm Hg Low 83.0-108.0 [facility] Comment on above: Performed By: #### L [id number] ####Nurse Research: CLARE HUGGINS ([phone])[facility])[address] SOURCE OF OXYGEN Nasal Cannula (LPM) Normal [facility] Comment on above: Performed By: #### L [id number] ####Nurse Research: CLARE HUGGINS ([phone])[facility] ([facility])[address] [place] [address] BLOOD TYPE AND SCREEN GELon 07-15-2024 ABO GROUPING A Normal [facility] Comment on above: Performed By: #### L [id number] ####Nurse Research: CLARE HUGGINS ([phone])[facility] ([facility])[address] [place] [address] RH TYPE IN BLOOD Positive Normal [facility] Comment on above: Performed By: #### L [id number] ####Nurse Research: CLARE HUGGINS ([phone])[facility] ([facility])[address] Blood type and Crossmatch corby joe (Bld)on 07-15-2024 ABO group Nom (Bld) A [facility] Blood group antibody screen GEL Ql Negative [facility] D Ag Ql (RBC) Positive [facility] CBC W Auto Differential pane l (Bld)Ordered By: Arcadio Shelton on 07-15-2024 Basophils (Bld) [#/Vol] 0 10*3/uL 0.0 - 0.2 10*3/uL [facility] Basophils/100 WBC (Bld) 0.2 % 0.0 - 2.0 % [facility] Eosinophils (Bld) [#/Vol] 0 10*3/uL 0.0 - 0.5 10*3/uL [facility] Eosinophils/100 WBC (Bld) 0.3 % 0.0 - 6.0 % [facility] Erythrocyte distribution width (RBC) [Ratio] 15.9 % High 11.5 - 15.0 % [facility] Hematocrit (Bld) [Volume fraction] 33.6 % Low 40.0 - 52.0 % [facility] Hemoglobin (Bld) [Mass/Vol] 10 g/dL Low 13.0 - 18.0 g/dL [facility] Immature granulocytes (Bld) [#/Vol] 0.1 10*3/uL High NINF - 0.1 10*3/uL [facility] Immature granulocytes/100 WBC (Bld) 0.4 % 0.0 - 2.0 % [facility] Interpretation and review of laboratory results Abnormal [facility] Lymphocytes (Bld) [#/Vol] 1.1 10*3/uL 1.0 - 4.3 10*3/uL [facility] Lymphocytes/100 WBC (Bld) 8.4 % Low 15.0 - 45.0 % [facility] MCH (RBC) [Entitic mass] 27 pg 26. 0 - 34.0 pg [facility] MCHC (RBC) [Mass/Vol] 29.8 % Low 30.5 - 36.0 % [facility] MCV (RBC) [Entitic vol] 90.6 fL 77.0 - 99.0 fL [facility] Monocytes (Bld) [#/Vol] 1.2 10*3/uL High 0.0 - 0.9 10*3/uL [facility] Monocytes/100 WBC (Bld) 9.6 % 5.0 - 13.0 % [facility] Neutrophils (Bld) [#/Vol] 10.4 10*3/uL High 1.8 - 7.5 10*3/uL [facility] Neutrophils/100 WBC (Bld) 81.1 % 38.0 - 82.0 % [facility] Nucleated RBC/100 WBC (Bld) [Ratio] 0 % [facility] Platelet mean volume (Bld) [Entitic vol] 10.6 fL 9.0 - 12.7 fL [facility] Platelets (Bld) [#/Vol] 221 10*3/uL 140 - 440 10*3/uL [facility] RBC (Bld) [#/Vol] 3.71 10*6/uL Low 4.40 - 5.9 0 10*6/uL [facility] WBC (Bld) [#/Vol] 12.8 10*3/uL High 3.6 - 10.7 10*3/uL [facility] CBC WITH AUTO DIFFERENTIALon 07-15-2024 Basophils (Bld) [#/Vol] 0.0 10*3/uL Normal 0.0-0.2 [facility] Comment on above: Performed By: #### L [id number] ####Nurse Research: CLARE HUGGINS ([phone])[facility] ([facility])[address] [place] [address] Basophils/100 WBC (Bld) 0.2 % Normal 0.0-2.0 [facility] Comment on above: Performed By: #### L [id number] ####Nurse Research: CLARE HUGGINS ([phone])[facility] ([facility])[address] Eosinophils (Bld) [#/Vol] 0.0 10*3/uL Normal 0.0-0.5 [facility] Comment on above: Performed By: #### L [id number] ####Nurse Research: CLARE [id number])[facility] (SB[facility])[address] Eosinophils/100 WBC (Bld) 0.3 % Normal 0.0-6.0 [facility] Comment on above: Performed By: #### L [id number] ####Nurse Research: CLARE HUGGINS ([phone])[facility] [facility])[address] Erythrocyte distribution width (RBC) [Ratio] 15.9 % High 11.5-15.0 [facility] Comment on above: Performed By: #### L [id number] ####Nurse Research: CLARE HUGGINS ([phone])[facility] ([facility])[address] [place] [address] Hematocrit (Bld) [Volume fraction] 33.6 % Low 40.0-52.0 [facility] Comment on above: Performed By: #### L [id number] ####Nurse Research: CLARE HUGGINS ([phone])[facility] ([facility])[address] [place] [address] Hemoglobin (Bld) [Mass/Vol] 10.0 g/dL Low 13.0-18.0 [facility] Comment on above: Performed By: #### L [id number] ####Nurse Research: CLARE HUGGINS ([phone])[facility])[address] IMMATURE GRANS % 0.4 % Normal 0.0-2.0 [facility] Comment on above: Performed By: #### L [id number] ####Nurse Research: CLARE HUGGINS ([phone])[facility] ([facility])[address] IMMATURE GRANS ABSOLUTE 0.1 10*3/uL High <0.1 [facility] Comment on above: Performed By: #### L [id number] ####Nurse Research: CLARE HUGGINS ([phone])[facility] [place] (SBHLAB)[address] Lymphocytes (Bld) [#/Vol] 1.1 10*3/uL Normal 1.0-4.3 [facility] Comment on above: Performed By: #### L [id number] ####Nurse Research: CLARE HUGGINS ([phone])[facility] [place] (SBHLAB)[address] Lymphocytes/100 WBC (Bld) 8.4 % Low 15.0-45.0 [facility] Comment on above: Performed By: #### L [id number] ####Nurse Research: CLARE HUGGINS ([phone])[facility] [place] (SB[facility])[address] MCH (RBC) [Entitic mass] 27.0 pg Normal 26.0-34.0 [facility] Comment on above: Performed By: #### L [id number] ####Nurse Research: CLARE HUGGINS ([phone])[facility] [place] ([facility])[address] MCHC 29.8 % Low 30.5-36.0 [facility] Comment on above: Performed By: #### L [id number] ####Nurse Research: CLARE HUGGINS ([phone])[facility] [place] (SB[facility])[address] MCV (RBC) [Entitic vol] 90.6 fL Normal 77.0-99.0 [facility] Comment on above: Performed By: #### L [id number] ####Nurse Research: CLARE HUGGINS ([phone])[facility] [place] (SB[facility])[address] [place] [address] [place] Monocytes (Bld) [#/Vol] 1.2 10*3/uL High 0.0-0.9 [facility] Comment on above: Performed By: #### L [id number] ####Nurse Research: CLARE HUGGINS ([phone])[facility] [place] (SBHL[facility])[address] Monocytes/100 WBC (Bld) 9.6 % Normal 5.0-13.0 [facility] Comment on above: Performed By: #### L [id number] ####Nurse Research: CLARE HUGGINS ([phone])[facility] [place] ([facility])[address] NEUTROPHILS ABSOLUTE 10.4 10*3/uL High 1.8-7.5 [facility] Comment on above: Performed By: #### L [id number] ####Nurse Research: CLARE HUGGINS ([phone])[facility] [place] (SBHL[facility])[address] Neutrophils/100 WBC (Bld) 81.1 % Normal 38.0-82.0 [facility] Comment on above: Performed By: #### L [id number] ####Nurse Research: CLARE HUGGINS ([phone])[facility] [place] ([facility])[address] NRBC 0.0 /100 WBCs Normal 0.0-2.0 [facility] Comment on above: Performed By: #### L [id number] ####Nurse Research: CLARE HUGGINS ([phone])[facility] [place] ([facility])[address] Platelet mean volume (Bld) [Entitic vol] 10.6 fL Normal 9.0-12.7 [facility] Comment on above: Performed By: #### L [id number] ####Nurse Research: CLARE HUGGINS ([phone])[facility] [place] ([facility])[address] [place] [address] [place] Platelets (Bld) [#/Vol] 221 10*3/uL Normal 140-440 [facility] Comment on above: Performed By: #### L [id number] ####Nurse Research: CLARE HUGGINS ([phone])[facility] [place] ([facility])[address] RBC (Bld) [#/Vol] 3.71 10*6/uL Low 4.40-5.90 [facility] Comment on above: Performed By: #### L [id number] ####Nurse Research: CLARE HUGGINS ([phone])[facility]ITAL[facility] (SB[facility])[address] WBC (Bld) [#/Vol] 12.8 10*3/uL High 3.6-10.7 [facility] Comment on above: Performed By: #### L [id number] ####Nurse Research: CLARE HUGGINS ([phone])[facility] (SBHLAB)[address] COMPREHENSIVE METABOLIC PANE Cricket 07-15-2024 Albumin [Mass/Vol] 2.8 g/dL Low 3.4-4.8 [facility] Comment on above: Performed By: #### L AB68, LAB17, LAB99 ####Nurse Research: CLARE HUGGINS ([phone])[facility] (SBHLAB)[address] ALP [Catalytic activity/Vol] 94 U/L Normal 40-150 [facility] Comment on above: Performed By: #### L AB68, LAB17, LAB99 ####Nurse Research: CLARE HUGGINS ([phone])[facility] (SB[facility])[address] ALT [Catalytic activity/Vol] 13 U/L Normal <40 [facility] Comment on above: Performed By: #### L AB68, LAB17, LAB99 ####Nurse Research: CLARE HUGGINS ([phone])[facility] (SBHL[facility])[address] Anion gap [Moles/Vol] 11 mmol/L Normal 3-13 [facility] Comment on above: Performed By: #### L AB68, LAB17, LAB99 ####Nurse Research: CLARE HUGGINS ([phone])[facility] [place] ([facility])[address] AST [Catalytic activity/Vol] 22 U/L Normal <34 [facility] Comment on above: Result Comment: TCPo tential interference from hemolysis Performed By: #### Jocye GIRALDO, LAB17, LAB99 ####Nurse Research: CLARE HUGGINS ([phone])[facility] [place] ([facility])[address] Bilirubin [Mass/Vol] 0.4 mg/dL Normal <1.2 [facility] Comment on above: Performed By: #### Joyce GIRALDO, LAB17, LAB99 ####Nurse Research: CLARE WINTERVERN ([phone])[facility] [place] ([facility])[address] Calcium [Mass/Vol] 8.4 mg/dL Low 8.8-10.0 [facility] Comment on above: Performed By: #### Joyce GIRALDO, LAB17, LAB99 ####Nurse Research: CLARE HUGGINS ([phone])[facility] [place] ([facility])[address] Chloride [Moles/Vol] 107 mmol/L Normal 98-107 [facility] Comment on above: Performed By: #### Joyce GIRALDO, LAB17, LAB99 ####Nurse Research: CLARE HUGGINS ([phone])[facility] [place] ([facility])[address] [place] [address] [place] CO2 [Moles/Vol] 18 mmol/L Low 23-31 [facility] Comment on above: Performed By: #### Joyce GIRALDO, LAB17, LAB99 ####Nurse Research: CLARE HUGGINS ([phone])[facility] [place] ([facility])[address] Creatinine [Mass/Vol] 1.49 mg/dL High 0.72-1.25 [facility] Comment on above: Performed By: #### Joyce ABKeegan, LAB17, LAB99 ####Nurse Research: CLARE HUGGINS ([phone])[facility] ([facility])[address] GLOMERULAR FILTRATION RATE ML/MIN/1.73 SQ M.PREDICTED 51.1 mL/min/1.73m*2 Low >60.0 [facility] Comment on above: Result Comment: Calc ulation based on the Chronic Kidney Disease Epidemiology Collaboration (CKD-EPI) equation refit without adjustment for race Performed By: #### Joyce ABKeegan, LAB17, LAB99 ####Nurse Research: CLARE HUGGINS ([phone])[facility] ([facility])[address] [place] [address] Glucose [Mass/Vol] 305 mg/dL High 82-115 [facility] Comment on above: Performed By: #### Joyce GIRADLO, LAB17, LAB99 ####Nurse Research: CLARE HUGGINS ([phone])[facility] ([facility])[address] [place] [address] Potassium [Moles/Vol] 5.1 mmol/L Normal 3.5-5.1 [facility] Comment on above: Result Comment: [facility] potassium values may be up to 0.5 mmol/L lower than serum values. Performed By: #### Joyce ABKeegan, LAB17, LAB99 ####Nurse Research: CLARE HUGGINS ([phone])[facility])[address] Protein [Mass/Vol] 6.0 g/dL Low 6.4-8.3 [facility] Comment on above: Performed By: #### Joyce GIRALDO, LAB17, LAB99 ####Nurse Research: CLARE HUGGINS ([phone])[facility] ([facility])[address] Sodium [Moles/Vol] 136 mmol/L Normal 136-145 [facility] Comment on above: Performed By: #### Joyce ABKeegan, LAB17, LAB99 ####Nurse Research: CLARE HUGGINS ([phone])[facility] ([facility])[address] Urea nitrogen [Mass/Vol] 37 mg/dL High 9-23 [facility] Comment on above: Performed By: #### L AB68, LAB17, LAB99 ####Nurse Research: CLARE MERCERKRISTYN ([phone])[facility] ([facility])[address] Comprehensive metabolic 1998 panelon 07-15-2024 Albumin [Mass/Vol] 2.8 g/dL Low 3.4 - 4.8 g/dL [facility] ALP [Catalytic activity/Vol] 94 U/L 40 - 150 U/L [facility] ALT [Catalytic activity/Vol] 13 U[facility]L [facility] Anion gap [Moles/Vol] 11 mmol/L 3 - 13 mmol/L [facility] AST [Catalytic activity/Vol] 22 U/L [facility] - [facility] U/L [facility] Comment on above: TC Potential interference from hemolysis Bilirubin [Mass/Vol] 0.4 mg/dL NINF - 1.2 mg/dL [facility] Calcium [Mass/Vol] 8.4 mg/dL Low 8.8 - 10. 0 mg/dL [facility] Chloride [Moles/Vol] 107 mmol/L 98 - 10 7 mmol/L [facility] CO2 [Moles/Vol] 18 mmol/L Low 23 - 31 mmol/L [facility] Creatinine [Mass/Vol] 1.49 mg/dL High 0.72 - 1.25 mg/dL [facility] GFR/1.73 sq M.predicted (S/P/Bld) [Vol rate/Area] 51.1 mL/min Low - PINF [facility] Comment on above: Calculation based on the Chronic Kidney Disease Epidemiology Collaboration (CKD-EPI) equation refit without adjustment for race Glucose [Mass/Vol] 305 mg/dL High 82 - 115 mg/dL [facility] Interpretation and review of laboratory results Abnormal [facility] Potassium [Moles/Vol] 5.1 mmol/L 3.5 - 5.1 mmol/L [facility] Comment on above: Plasma potassium adriana ues may be up to 0.5 mmol/L lower than serum values. Protein [Mass/Vol] 6 g/dL Low 6.4 - 8.3 g/dL [facility] Sodium [Moles/Vol] 136 mmol/L 136 - 145 mmol/L [facility] Urea nitrogen [Mass/Vol] 37 mg/dL High 9 - 23 mg/dL [facility] ED Nursing Noteon 07-15-2024 ED Nursing Note Patient taken to the floor via medic. Normal [facility] ED Nursing Note [facility] via ambulance due to coffee ground emesis twice. Normal [facility] ED Provider Noteon ED Provider Note Normal [facility] FERRITINon 07-15-2024 Ferritin [Mass/Vol] 80 ng/mL Normal 22-275 [facility] Comment on above: Result Comment: TAVO Hernandez COMMENTS:Ferritin levels below 10 ng/mL have been reported as indicative of iron deficiency anemia. Performed By: #### L AB68, LAB17, LAB99 ####Nurse Research: CLARE HUGGINS ([phone])[facility] ([facility])[address] [place] [address] Ferritin [Mass/Vol]on 2024 Interpretation and review of laboratory results Normal [facility] Ferritin levels belo w 10 ng/mL have been reported as indicative of iron deficiency anemia. [facility] HEMOGLOBIN A1Con 07-15-2024 Glucose [Mass/Vol] 186 mg/dL Normal [facility] Comment on above: Result Comment: TAVO Hernandez COMMENTS:HbA1c values of 5.7-6.4 percent indicate an increased risk for developing diabetes mellitus. HbA1c values greater than or equal to 6.5 percent are diagnostic of diabetes mellitus. For diagnosis of diabetes in individuals without unequivocal hyperglycemia, results should be confirmed by repeat testing. Performed By: #### L AB90 ####Nurse Research: CLARE HUGGINS ([phone])[facility] ([facility])[address] [place] [address] HEMOGLOBIN A1C 8.1 %HbA1C High <5.7 [facility] Comment on above: Result Comment: Norm al less than 5.7%Prediabetes 5.7% to 6.4%Diabetes 6.5% or higher--HgbA1C levels may not be accurate in patients who have renal disease, received recent blood transfusions, are anemic, or who have dyshemoglobinemia. Performed By: #### L AB90 ####Nurse Research: CLARE HUGGINS ([phone])[facility] ([facility])[address] HEMOGLOBIN AND HEMATOCRIT, B LOODon 07-15-2024 Hematocrit (Bld) [Volume fraction] 30.4 % Low 40.0-52.0 [facility] Comment on above: Performed By: #### L [id number] ####Nurse Research: CLARE HUGGINS ([phone])[facility]ITAL[facility] ([facility])[address] [place] [address] Hemoglobin (Bld) [Mass/Vol] 9.2 g/dL Low 13.0-18.0 [facility] Comment on above: Performed By: #### L [id number] ####Nurse Research: CLARE HUGGINS ([phone])[facility]ITAL[facility]ENTERBERNADINE ([facility] [place] [address] Hemoglobin (Bld) [Mass/Vol]O rdered By: Haydee Dixon on 07-15-2024 Hematocrit (Bld) [Volume fraction] 30.4 % Low 40.0 - 52.0 % [facility] Interpretation and review of laboratory results Abnormal [facility] LIPASEon 07-15-2024 Lipase [Catalytic activity/Vol] 8 U/L Normal <55 [facility] Comment on above: Performed By: #### L AB68, LAB17, LAB99 ####Nurse Research: CLARE HUGGINS ([phone])[facility]ITAL[facility] ([facility])[address] [place] [address] Laboratory - Chemistry and C hemistry - challengeon 07-15-2024 Glucose [Mass/Vol] 191 mg/dL High 70 - 100 mg/dL [facility] Glucose [Mass/Vol] 261 mg/dL High 70 - 100 mg/dL [facility] Ferritin [Mass/Vol] 80 ng/mL 22 - 275 ng/mL [facility] Average glucose Estimated from glycated hemoglobin (Bld) [Mass/Vol] 186 mg/dL [facility] Lipase [Catalytic activity/Vol] 8 U/L NINF - 55 U/L [facility] Laboratory - Chemistry and C hemistry - challengeOrdered By: Papo Christopher on 07-15-2024 Base excess Calc (Bld) [Moles/Vol] -3.3000 mmol/L Low -3.0 - 3.0 mmol/L [facility] CO2 (Bld) [Partial pressure] 46.3 mm[Hg] [facility] CO2 [Moles/Vol] 24.4 mmol/L 22.0 - 28.0 mmol/L [facility] HCO3 (Bld) [Moles/Vol] 22.9 mmol/L 21.0 - 27.0 mmol/L [facility] Oxygen (Bld) [Partial pressure] 70.1 mm[Hg] Low [facility] pH (Bld) 7.313 [pH] Low 7.350 - 7.450 [facility] Laboratory - Coagulationon 0 07-15-2024 aPTT Coag (PPP) [Time] 31.2 s High 20.0 - 30.5 s [facility] INR Coag (PPP) [Relative time] 1.1 {INR} 0.9 - 1.1 [facility] Comment on above: Recommended Anticoag ulant Therapy: SEE BELOW ----- INR of 2.0 - 3.0 : - Prophylaxis of Venous Thrombosis (high-risk surgery) - Treatment of Venous Thrombosis - Treatment of Pulmonary Embolism (Includes tissue heart valves, Acute Myocardial Infarction to prevent systemic embolism, Valvular Heart Disease, and Atrial Fibrillation) ----- INR of 2.5 - 3.5 : - Mechanical Prosthetic Valves (high risk) - If oral anticoagulant therapy is used to prevent Myocardial Infarction PT Coag (Bld) [Time] 12.3 s High 9.0 - 1 2.0 s [facility] Laboratory - Hematology and Cell countsOrdered By: Haydee Dixon on 07-15-2024 Hemoglobin (Bld) [Mass/Vol] 9.2 g/dL Low 13.0 - 18.0 g/dL [facility] Laboratory - Hematology and Cell countsOrdered By: Papo Christopher on 07-15-2024 Hemoglobin (Bld) [Mass/Vol] 11.4 g/dL Low Screen only [facility] Laboratory - Hematology and Cell countson 07-15-2024 HbA1c (Bld) [Mass fraction] 8.1 % High NINF [facility] Comment on above: Normal less than 5.7 % Prediabetes 5.7% to 6.4% Diabetes 6.5% or higher --HgbA1C levels may not be accurate in patients who have renal disease, received recent blood transfusions, are anemic, or who have dyshemoglobinemia. Laboratory - Microbiology an d Antimicrobial susceptibilityon 07-15-2024 FLUAV RNA JOAN+probe Ql (Resp) Not detected Not Detected [facility] FLUBV RNA JOAN+probe Ql (Resp) Not detected Not Detected [facility] RSV RNA JOAN+probe Ql (Resp) Not detected Not Detected [facility] SARS-CoV-2 (COVID-19) RNA JOAN+probe Ql (Resp) Not detected Not Detected [facility] SARS-CoV-2 (COVID-19) RNA JOAN+probe Ql (Unsp spec) Methodology: real-time, RT-PCR The SARS-CoV-2, Flu A/B, and RSV Combo assay is intended for in vitro diagnostic use under the FDA Emergency Use Authorization (EUA). This test has not been FDA cleared or approved. In compliance with this authorization, please visit www.fda.gov/media/31819 5/download or www.fda.gov/media/39244 6/download to access the applicable information sheets. [facility] Lipase [Catalytic activity/V ol]on 07-15-2024 Interpretation and review of laboratory results Normal [facility] No Panel Informationon 07-15 Interpretation and review of laboratory results Abnormal [facility] Performed by: [facility], [address] [place] [address] CLIA ID: [id number] [facility] Interpretation and review of laboratory results Abnormal [facility] Performed by: [facility], [address] [place] [address] CLIA ID: [id number] [facility] Interpretation and review of laboratory results Abnormal [facility] HbA1c values of 5.7- 6.4 percent indicate an increased risk for developing diabetes mellitus. HbA1c values greater than or equal to 6.5 percent are diagnostic of diabetes mellitus. For diagnosis of diabetes in individuals without unequivocal hyperglycemia, results should be confirmed by repeat testing. [facility] Interpretation and review of laboratory results Abnormal [facility] No Panel InformationOrdered By: Papo Christopher on 07-15-2024 Amount Of Oxygen 6 [facility] Interpretation and review of laboratory results Abnormal [facility] Source Of Oxygen Nasal Cannula (LPM) [facility] PROTIME AND APTTon aPTT Coag (Bld) [Time] 31.2 s High 20.0-30.5 [facility] Comment on above: Performed By: #### L [id number] ####Nurse Research: CLARE HUGGINS ([phone])[facility])[address] [place] [address] INR Coag (PPP) [Relative time] 1.1 {INR} Normal 0.9-1.1 [facility] Comment on above: Result Comment: Lux mmended Anticoagulant Therapy: SEE BELOW----- INR of 2.0 - 3.0 : - Prophylaxis of Venous Thrombosis (high-risk surgery) - Treatment of Venous Thrombosis - Treatment of Pulmonary Embolism (Includes tissue heart valves, Acute Myocardial Infarction to prevent systemic embolism, Valvular Heart Disease, and Atrial Fibrillation)----- INR of 2.5 - 3.5 : - Mechanical Prosthetic Valves (high risk) - If oral anticoagulant therapy is used to prevent Myocardial Infarction Performed By: #### L [id number] ####Nurse Research: CLARE HUGGINS ([id number])[facility])[address] [place] [address] PT Coag (PPP) [Time] 12.3 s High 9.0-12.0 [facility] Comment on above: Performed By: #### L [id number] ####Nurse Research: CLARE HUGGINS ([phone])[facility])[address] [place] [address] SARS-COV-2, FLU A/B, AND RSV COMBOon 07-15-2024 SARS-CoV-2 (COVID-19) RNA JOAN+probe Ql (Unsp spec) Normal [facility] Comment on above: Performed By: #### L [id number] ####Nurse Research: CLARE HUGGINS ([phone])[facility] ([facility])[address] [place] [address] SARS-CoV-2, Flu A/B, and RSV Comboon 07-15-2024 Interpretation and review of laboratory results Normal [facility] XR Chest Single viewon 07-15 Borderline cardiomegaly. Low lung volumes and pulmonary vascular congestion. No lobar consolidation is seen. Report Dictated on Electronically Signed By: Melvin Scott MD Electronically Signed Date/Time: 07/15/2024 12:22 PM EDT [facility] Patient Name: JAMES REYES : 1955 Exam Date/Time: 07/15/2024 12:10 Procedure: XR CHEST 1 VIEW Ordering Provider: PARISI ANIS Reason For Exam: patient presented for hematemesis but is hypoxic PORTABLE CHEST X-RAY CLINICAL INDICATION: Hematemesis, hypoxia A portable frontal view of the chest was obtained. COMPARISON: 06/10/2024 FINDINGS: Heart size is at the upper limits of normal. Low lung volumes are present. Pulmonary vascular congestion is suspected, similar to the prior examination. No new areas of consolidation are seen. There is no pleural effusion or pneumothorax. There are degenerative changes of the spine. [facility] Melvin Scott MD - 07/15/2024 Patient Name: JAMES REYES : 1955 Exam Date/Time: 07/15/2024 12:10 Procedure: XR CHEST 1 VIEW Ordering Provider: PARISI ANIS Reason For Exam: patient presented for hematemesis but is hypoxic PORTABLE CHEST X-RAY CLINICAL INDICATION: Hematemesis, hypoxia A portable frontal view of the chest was obtained. COMPARISON: 06/10/2024 FINDINGS: Heart size is at the upper limits of normal. Low lung volumes are present. Pulmonary vascular congestion is suspected, similar to the prior examination. No new areas of consolidation are seen. There is no pleural effusion or pneumothorax. There are degenerative changes of the spine. IMPRESSION: Borderline cardiomegaly. Low lung volumes and pulmonary vascular congestion. No lobar consolidation is seen. Report Dictated on Electronically Signed By: Melvin Scott MD Electronically Signed Date/Time: 07/15/2024 12:22 PM EDT [facility] Radiology Study observation (narrative) [facility] alth XR Chest Single viewOrdered By: Melvin Scott on 07-15-2024 [facility] Hemoglobin A1c percentageOrd ered By: Chelle Troncoso on 07-01-2024 HbA1c (Bld) [Mass fraction] 8.6 % >5.7 [facility] POC URINALYSIS DIP STICK AUTO W/O MICRO (CRN)Ordered By: Dean Lomeli on 06-27-2024 Bilirubin, UA Negative [facility] Blood, UA Trace-Intact [facility] Glucose, UA >1,000 [facility] Ketones, UA (mg/dL) Negative Negative mg/dL [facility] Leukocytes, UA [facility] Nitrite, UA Negative [facility] pH, UA 5.5 [facility] Protein, UA Negative [facility] Spec Grav, UA 1.01 [facility] Urobilinogen, UA 0.2 [facility] alth [facility] Progress Noteon 06-27-2024 Progress Note Normal [facility] Progress Note UROJET 2% LIDOCAINE [facility] [id number] LOT [id number] EXP 05/16/2026 ADMINISTERED BY Nettie Carreon LPN 6 mL in to Urethra PATIENT TOLERATED WELL Normal [facility] 30on 06-04-2024 30 Normal [facility] [id number] 06-04-2024 [id number] Normal [facility] [id number] Updates DC order entered Confirmed pickup time of 4pm by transport [facility] [employer] [facility] notified Sreekanth tejeda notified [facility] [phone] Normal [facility] [phone] 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 Awaiting time confirmation. [facility] [phone] Discharge med list transmitted to return back to [facility] via [employer] per TCC request. Normal [facility] Bacteria identified Cx Nom ( Bld)on 06-04-2024 Interpretation and review of laboratory results Normal [facility] Blood Collection Sit e: Left Hand [facility] Blood Collection Sit e: Right Hand [facility] CALCIUM, IONIZEDon CALCIUM IONIZED 4.60 mg/dL Normal 4.30-5.20 [facility] Comment on above: Performed By: #### L [id number] ####Nurse Research: CLARE HUGGINS ([id number])[facility]OSPITALPrieto [facility]ENTERBERNADINE ([facility])[address] [place] [address] PH, IONIZED CALCIUM 7.40 Normal 7.31-7.46 [facility] Comment on above: Performed By: #### L AB54 ####Nurse Research: CLARE HUGGINS ([id number])[facility] ([facility])[address] [place] [address] CBC (HEMOGRAM)on 06-04-2024 Erythrocyte distribution width (RBC) [Ratio] 14.9 % Normal 11.5-15.0 [facility] Comment on above: Performed By: #### L [id number] ####Nurse Research: CLARE HUGGINS ([phone])[facility]PITALPrieto [facility] ([facility])[address] [place] [address] Hematocrit (Bld) [Volume fraction] 32.4 % Low 40.0-52.0 [facility] Comment on above: Performed By: #### L [id number] ####Nurse Research: CLARE HUGGINS ([phone])[facility] ([facility])[address] [place] [address] Hemoglobin (Bld) [Mass/Vol] 9.9 g/dL Low 13.0-18.0 [facility] Comment on above: Performed By: #### L [id number] ####Nurse Research: CLARE HUGGINS ([phone])[facility]PITALPrieto [facility]AR[facility]ER[facility] ([facility])[address] MCH (RBC) [Entitic mass] 28.4 pg Normal 26.0-34.0 [facility] Comment on above: Performed By: #### L [id number] ####Nurse Research: CLARE HUGGINS ([phone])[facility]ITALP[facility] ([facility])[address] MCHC 30.6 % Normal 30.5-36.0 [facility] Comment on above: Performed By: #### L [id number] ####Nurse Research: CLARE HUGGINS ([phone])[facility]ITALP[facility] ([facility])[address] MCV (RBC) [Entitic vol] 92.8 fL Normal 77.0-99.0 S [facility] Comment on above: Performed By: #### L [id number] ####Nurse Research: CLARE HUGGINS ([phone])[facility]ITALP[facility] ([facility])[address] Platelet mean volume (Bld) [Entitic vol] 10.5 fL Normal 9.0-12.7 [facility] Comment on above: Performed By: #### L [id number] ####Nurse Research: CLARE HUGGINS ([phone])[facility]ITALP[facility] ([facility])[address] Platelets (Bld) [#/Vol] 221 10*3/uL Normal 140-440 [facility] Comment on above: Performed By: #### L [id number] ####Nurse Research: CLARE HUGGINS ([id number])[facility]ITAL[facility] ([facility])[address] RBC (Bld) [#/Vol] 3.49 10*6/uL Low 4.40-5.90 [facility] Comment on above: Performed By: #### L [id number] ####Nurse Research: CLARE HUGGINS ([phone])[facility] ([facility])[address] WBC (Bld) [#/Vol] 6.7 10*3/uL Normal 3.6-10.7 [facility] Comment on above: Performed By: #### L [id number] ####Nurse Research: CLARE HUGGINS ([phone])[facility] ([facility])[address] CBC panel Auto (Bld)Ordered By: Amador Saenz on 06-04-2024 Erythrocyte distribution width (RBC) [Ratio] 14.9 % 11.5 - 15.0 % [facility] Hematocrit (Bld) [Volume fraction] 32.4 % Low 40.0 - 52.0 % [facility] Hemoglobin (Bld) [Mass/Vol] 9.9 g/dL Low 13.0 - 18.0 g/dL [facility] Interpretation and review of laboratory results Abnormal [facility] MCH (RBC) [Entitic mass] 28.4 pg 26. 0 - 34.0 pg [facility] MCHC (RBC) [Mass/Vol] 30.6 % 30.5 - 36.0 % [facility] MCV (RBC) [Entitic vol] 92.8 fL 77.0 - 99.0 fL [facility] Platelet mean volume (Bld) [Entitic vol] 10.5 fL 9.0 - 12.7 fL [facility] Platelets (Bld) [#/Vol] 221 10*3/uL 140 - 440 10*3/uL [facility] RBC (Bld) [#/Vol] 3.49 10*6/uL Low 4.40 - 5.9 0 10*6/uL [facility] WBC (Bld) [#/Vol] 6.7 10*3/uL 3.6 - 10.7 10*3/uL [facility] COMPREHENSIVE METABOLIC PANE Cricket 06-04-2024 Albumin [Mass/Vol] 3.0 g/dL Low 3.4-4.8 [facility] Comment on above: Performed By: #### Joyce ABJackson, LAB17, [id number] ####Nurse Research: CLARE HUGGINS ([phone])[facility]PITALA [facility] ([facility])[address] ALP [Catalytic activity/Vol] 63 U/L Normal 40-150 [facility] Comment on above: Performed By: #### L ABJackson, LAB17, [id number] ####Nurse Research: CLARE HUGGINS ([phone])[facility]ITALA [facility]BALBUQU[facility]N ([facility])[address] ALT [Catalytic activity/Vol] 15 U/L Normal <40 [facility] Comment on above: Performed By: #### Joyce ABJackson, LAB17, [id number] ####Nurse Research: CLARE HUGGINS ([phone])[facility] ([facility])[address] Anion gap [Moles/Vol] 7 mmol/L Normal 3-13 [facility] Comment on above: Performed By: #### Joyce ABJackson, LAB17, [id number] ####Nurse Research: CLARE HUGGINS ([phone])[facility] ([facility])[address] AST [Catalytic activity/Vol] 16 U/L Normal <34 [facility] Comment on above: Performed By: #### Joyce ABJackson, LAB17, [id number] ####Nurse Research: CLARE HUGGINS ([phone])[facility] ([facility])[address] Bilirubin [Mass/Vol] 0.2 mg/dL Normal <1.2 [facility] Comment on above: Performed By: #### L ABJackson, LAB17, [id number] ####Nurse Research: CLARE HUGGINS ([phone])[facility] ([facility])[address] Calcium [Mass/Vol] 8.6 mg/dL Low 8.8-10.0 [facility] Comment on above: Performed By: #### L AB113, LAB17, [id number] ####Nurse Research: CLARE HUGGINS ([phone])[facility]ITALP[facility] ([facility])[address] Chloride [Moles/Vol] 105 mmol/L Normal 98-107 [facility] Comment on above: Performed By: #### L AB113, LAB17, [id number] ####Nurse Research: CLARE HUGGINS ([phone])[facility]ITALP[facility] JARAMYNORN ([facility])[address] CO2 [Moles/Vol] 28 mmol/L Normal 23-31 [facility] Comment on above: Performed By: #### Joyce AB113, LAB17, [id number] ####Nurse Research: CLARE HUGGINS ([id number])[facility]ITALP[facility] ([facility])[address] Creatinine [Mass/Vol] 0.86 mg/dL Normal 0.72-1.25 [facility] Comment on above: Performed By: #### Joyce ABJackson, LAB17, [id number] ####Nurse Research: CLARE HUGGINS ([phone])[facility]ITALPrieto JARAALBUQUERQUE INDIAN DENTAL CLINICAlysa ([facility])[address] GLOMERULAR FILTRATION RATE ML/MIN/1.73 SQ M.PREDICTED >90.0 Normal >60.0 [facility] Comment on above: Result Comment: Calc ulation based on the Chronic Kidney Disease Epidemiology Collaboration (CKD-EPI) equation refit without adjustment for race Performed By: #### L AB113, LAB17, [id number] ####Nurse Research: CLARE HUGGINS ([phone])[facility]ITALP[facility] ([facility])[address] [place] [address] [place] Glucose [Mass/Vol] 200 mg/dL High 82-115 [facility] Comment on above: Performed By: #### L AB113, LAB17, [id number] ####Nurse Research: CLARE HUGGINS ([id number])[facility]ITALA GERALDBERNADINE ([facility])[address] Potassium [Moles/Vol] 4.1 mmol/L Normal 3.5-5.1 [facility] Comment on above: Result Comment: [facility] potassium values may be up to 0.5 mmol/L lower than serum values. Performed By: #### L AB113, LAB17, [id number] ####Nurse Research: CLARE HUGGINS ([phone])[facility] ([facility])[address] Protein [Mass/Vol] 5.5 g/dL Low 6.4-8.3 [facility] Comment on above: Performed By: #### L AB113, LAB17, [id number] ####Nurse Research: CLARE HUGGINS ([id number])[facility] ([facility])[address] Sodium [Moles/Vol] 140 mmol/L Normal 136-145 [facility] Comment on above: Performed By: #### L AB113, LAB17, [id number] ####Nurse Research: CLARE HUGGINS ([phone])[facility] ([facility])[address] Urea nitrogen [Mass/Vol] 30 mg/dL High 9-23 [facility] Comment on above: Performed By: #### L AB113, LAB17, [id number] ####Nurse Research: CLARE HUGGINS ([phone])[facility] ([facility])[address] Calcium.ionized [Moles/Vol]o n 06-04-2024 Calcium.ionized (Bld) [Moles/Vol] 4.6 mg/dL 4.30 - 5.20 mg/dL [facility] Interpretation and review of laboratory results Normal [facility] PH, IONIZED CALCIUM 7.4 7.31 - 7.46 [facility] Comprehensive metabolic 1998 panelon 06-04-2024 Albumin [Mass/Vol] 3 g/dL Low 3.4 - 4.8 g/dL [facility] ALP [Catalytic activity/Vol] 63 U/L 40 - 150 U/L [facility] ALT [Catalytic activity/Vol] 15 U/L [facility] U/L [facility] Anion gap [Moles/Vol] 7 mmol/L 3 - 13 mmol/L [facility] AST [Catalytic activity/Vol] 16 U/L [facility] U/L [facility] Bilirubin [Mass/Vol] 0.2 mg/dL NINF - 1.2 mg/dL [facility] Calcium [Mass/Vol] 8.6 mg/dL Low 8.8 - 10. 0 mg/dL [facility] Chloride [Moles/Vol] 105 mmol/L 98 - 10 7 mmol/L [facility] CO2 [Moles/Vol] 28 mmol/L 23 - 31 mmol/L [facility] Creatinine [Mass/Vol] 0.86 mg/dL 0.72 - 1.25 mg/dL [facility] GFR/1.73 sq M.predicted (S/P/Bld) [Vol rate/Area] - PINF [facility] Comment on above: Calculation based on the Chronic Kidney Disease Epidemiology Collaboration (CKD-EPI) equation refit without adjustment for race Glucose [Mass/Vol] 200 mg/dL High 82 - 115 mg/dL [facility] Interpretation and review of laboratory results Abnormal [facility] Potassium [Moles/Vol] 4.1 mmol/L 3.5 - 5.1 mmol/L [facility] Comment on above: Plasma potassium adriana ues may be up to 0.5 mmol/L lower than serum values. Protein [Mass/Vol] 5.5 g/dL Low 6.4 - 8.3 g/dL [facility] Sodium [Moles/Vol] 140 mmol/L 136 - 145 mmol/L [facility] Urea nitrogen [Mass/Vol] 30 mg/dL High 9 - 23 mg/dL [facility] Laboratory - Chemistry and C hemistry - challengeon 06-04-2024 Glucose [Mass/Vol] 297 mg/dL High 70 - 100 mg/dL [facility] Glucose [Mass/Vol] 121 mg/dL High 70 - 100 mg/dL [facility] Glucose [Mass/Vol] 168 mg/dL High 70 - 100 mg/dL [facility] Magnesium [Mass/Vol] 2.1 mg/dL 1.6 - 2 .6 mg/dL [facility] Laboratory - Microbiology an d Antimicrobial susceptibilityon 06-04-2024 Bacteria identified Cx Nom (Bld) No growth at 5 days [facility] MAGNESIUMon 06-04-2024 Magnesium [Mass/Vol] 2.1 mg/dL Normal 1.6-2.6 [facility] Comment on above: Result Comment: TAVO Hernandez COMMENTS:Higher values can be expected in females during menses. Performed By: #### L AB113, LAB17, [id number] ####Nurse Research: CLARE HUGGINS ([phone])[facility]ITALP[facility] GERALDBERNADINE ([facility])[address] [place] [id number] [place] [address] Magnesium [Mass/Vol]on 06-04 Higher values can be expected in females during menses. [facility] No Panel Informationon 06-04 Interpretation and review of laboratory results Abnormal [facility] Performed by: [facility], [address] [place] [address] CLIA ID: [id number] [facility] Interpretation and review of laboratory results Abnormal [facility] Performed by: [facility], [address] [place] [address] CLIA ID: [id number] [facility] Interpretation and review of laboratory results Abnormal [facility] Performed by: [facility], [address] [place] [address] CLIA ID: [id number] [facility] Interpretation and review of laboratory results Normal [facility] Nursing Noteon 06-04-2024 Nursing Note Nurse to nurse repor t given to Sj Cruz. Normal [facility] PHOSPHORUSon 06-04-2024 Phosphate [Mass/Vol] 2.7 mg/dL Normal 2.3-4.7 [facility] Comment on above: Performed By: #### L AB113, LAB17, [id number] ####Nurse Research: CLARE HUGGINS ([phone])[facility]ITAL[facility] JARABER[facility]DINE ([facility])[address] [place] [address] [place] Phosphate [Moles/Vol]on 05-18 Phosphate [Mass/Vol] 2.7 mg/dL 2.3 - 4 .7 mg/dL [facility] Progress Noteon 06-04-2024 Progress Note Normal [facility] Progress Note Normal [facility] 30on 06-03-2024 30 Normal [facility] [id number] 06-03-2024 [id number] Normal [facility] CALCIUM, IONIZEDon CALCIUM IONIZED 4.70 mg/dL Normal 4.30-5.20 [facility] Comment on above: Performed By: #### L AB54 ####Nurse Research: CLARE HUGGINS ([id number])[facility] [place] ([facility])[address] [place] [address] PH, IONIZED CALCIUM 7.33 Normal 7.31-7.46 [facility] Comment on above: Performed By: #### L AB54 ####Nurse Research: CLARE HUGGINS ([phone])[facility] [place] ([facility])[address] [place] [address] CBC (HEMOGRAM)on 06-03-2024 Erythrocyte distribution width (RBC) [Ratio] 15.1 % High 11.5-15.0 [facility] Comment on above: Performed By: #### L [id number] ####Nurse Research: CLARE HUGGINS ([phone])[facility] [place] ([facility])[address] [place] [address] Hematocrit (Bld) [Volume fraction] 30.6 % Low 40.0-52.0 [facility] Comment on above: Performed By: #### L [id number] ####Nurse Research: CLARE HUGGINS ([phone])[facility] [place] ([facility])[address] [place] [address] Hemoglobin (Bld) [Mass/Vol] 9.2 g/dL Low 13.0-18.0 [facility] Comment on above: Performed By: #### L [id number] ####Nurse Research: CLARE HUGGINS ([phone])[facility] [place] ([facility])[address] MCH (RBC) [Entitic mass] 28.6 pg Normal 26.0-34.0 [facility] Comment on above: Performed By: #### L [id number] ####Nurse Research: CLARE HUGGINS ([id number])[facility] [place] (SB[facility]AB)[address] MCHC 30.1 % Low 30.5-36.0 [facility] Comment on above: Performed By: #### L [id number] ####Nurse Research: CLARE HUGGINS ([phone])[facility] [place] ([facility])[address] MCV (RBC) [Entitic vol] 95.0 fL Normal 77.0-99.0 [facility] Comment on above: Performed By: #### L [id number] ####Nurse Research: CLARE HUGGINS ([phone])[facility] [place] (SB[facility])[address] Platelet mean volume (Bld) [Entitic vol] 10.7 fL Normal 9.0-12.7 [facility] Comment on above: Performed By: #### L [id number] ####Nurse Research: CLARE HUGGINS ([phone])[facility] [place] ([facility])[address] Platelets (Bld) [#/Vol] 197 10*3/uL Normal 140-440 [facility] Comment on above: Performed By: #### L [id number] ####Nurse Research: CLARE HUGGINS ([phone])[facility] [place] ([facility])[address] RBC (Bld) [#/Vol] 3.22 10*6/uL Low 4.40-5.90 [facility] Comment on above: Performed By: #### L [id number] ####Nurse Research: CLARE HUGGINS ([phone])[facility] [place] ([facility])[address] WBC (Bld) [#/Vol] 6.1 10*3/uL Normal 3.6-10.7 [facility] Comment on above: Performed By: #### L AB294 ####Nurse Research: CLARE HUGGINS ([phone])[facility] (SB[facility]AB)[address] CBC panel Auto (Bld)on 06-03 Erythrocyte distribution width (RBC) [Ratio] 15.1 % High 11.5 - 15.0 % [facility] Hematocrit (Bld) [Volume fraction] 30.6 % Low 40.0 - 52.0 % [facility] Hemoglobin (Bld) [Mass/Vol] 9.2 g/dL Low 13.0 - 18.0 g/dL [facility] Interpretation and review of laboratory results Abnormal [facility] MCH (RBC) [Entitic mass] 28.6 pg 26. 0 - 34.0 pg [facility] MCHC (RBC) [Mass/Vol] 30.1 % Low 30.5 - 36.0 % [facility] MCV (RBC) [Entitic vol] 95 fL 77.0 - 99.0 fL [facility] Platelet mean volume (Bld) [Entitic vol] 10.7 fL 9.0 - 12.7 fL [facility] Platelets (Bld) [#/Vol] 197 10*3/uL 140 - 440 10*3/uL [facility] RBC (Bld) [#/Vol] 3.22 10*6/uL Low 4.40 - 5.9 0 10*6/uL [facility] WBC (Bld) [#/Vol] 6.1 10*3/uL 3.6 - 10.7 10*3/uL [facility] COMPREHENSIVE METABOLIC PANE Cricket 06-03-2024 Albumin [Mass/Vol] 2.7 g/dL Low 3.4-4.8 [facility] Comment on above: Performed By: #### L AB113, LAB17, [id number] ####Nurse Research: CLARE HUGGINS ([phone])[facility] (SBHLAB)[address] ALP [Catalytic activity/Vol] 56 U/L Normal 40-150 [facility] Comment on above: Performed By: #### L ABJackson, LAB17, [id number] ####Nurse Research: CLARE HUGGINS ([phone])[facility] [place] (SBHL[facility])[address] ALT [Catalytic activity/Vol] 10 U/L Normal <40 [facility] Comment on above: Performed By: #### Joyce ABJackson, LAB17, [id number] ####Nurse Research: CLARE HUGGINS ([phone])[facility] [place] ([facility])[address] Anion gap [Moles/Vol] 5 mmol/L Normal 3-13 [facility] Comment on above: Performed By: #### Joyce DELGADO, LAB17, [id number] ####Nurse Research: CLARE HUGGINS ([phone])[facility] (SB[facility])[address] [place] [address] [place] AST [Catalytic activity/Vol] 14 U/L Normal <34 [facility] Comment on above: Performed By: #### Joyce DELGADO, LAB17, [id number] ####Nurse Research: CLARE HUGGINS ([phone])[facility] (SB[facility])[address] Bilirubin [Mass/Vol] 0.2 mg/dL Normal <1.2 [facility] Comment on above: Performed By: #### Joyce DELGADO, LAB17, [id number] ####Nurse Research: CLARE HUGGINS ([phone])[facility] [place] ([facility])[address] [place] [address] [place] Calcium [Mass/Vol] 8.3 mg/dL Low 8.8-10.0 [facility] Comment on above: Performed By: #### L ABJackson, LAB17, [id number] ####Nurse Research: CLARE HUGGINS ([phone])[facility] ([facility])[address] [place] [address] [place] Chloride [Moles/Vol] 105 mmol/L Normal 98-107 [facility] Comment on above: Performed By: #### L AB113, LAB17, [id number] ####Nurse Research: CLARE HUGGINS ([phone])[facility] (SB[facility])[address] CO2 [Moles/Vol] 27 mmol/L Normal 23-31 [facility] Comment on above: Performed By: #### Joyce ABJackson, LAB17, SRP134 ####Nurse Research: CLARE HUGGINS ([phone])[facility] (SB[facility])[address] Creatinine [Mass/Vol] 1.03 mg/dL Normal 0.72-1.25 [facility] Comment on above: Performed By: #### Joyce ABJackson, LAB17, [id number] ####Nurse Research: CLARE HUGGINS ([phone])[facility] (SB[facility])[address] GLOMERULAR FILTRATION RATE ML/MIN/1.73 SQ M.PREDICTED 79.6 mL/min/1.73m*2 Normal >60.0 [facility] Comment on above: Result Comment: Calc ulation based on the Chronic Kidney Disease Epidemiology Collaboration (CKD-EPI) equation refit without adjustment for race Performed By: #### L ABJackson, LAB17, [id number] ####Nurse Research: CLARE HUGGINS ([phone])[facility] ([facility])[address] Glucose [Mass/Vol] 203 mg/dL High 82-115 [facility] Comment on above: Performed By: #### L AB113, LAB17, SCK247 ####Nurse Research: CLARE HUGGINS ([phone])[facility] ([facility])[address] Potassium [Moles/Vol] 4.3 mmol/L Normal 3.5-5.1 [facility] Comment on above: Result Comment: [facility] potassium values may be up to 0.5 mmol/L lower than serum values. Performed By: #### L AB113, LAB17, [id number] ####Nurse Research: CLARE HUGGINS ([phone])[facility] ([facility])[address] Protein [Mass/Vol] 5.1 g/dL Low 6.4-8.3 [facility] Comment on above: Performed By: #### L AB113, LAB17, [id number] ####Nurse Research: CLARE HUGGINS ([phone])[facility] ([facility])[address] Sodium [Moles/Vol] 137 mmol/L Normal 136-145 [facility] Comment on above: Performed By: #### L AB113, LAB17, [id number] ####Nurse Research: CLARE HUGGINS ([phone])[facility] ([facility])[address] Urea nitrogen [Mass/Vol] 37 mg/dL High 9-23 [facility] Comment on above: Performed By: #### L AB113, LAB17, [id number] ####Nurse Research: CLARE WINTEREVARISTOKRISTYN ([phone])[facility] (SB[facility])[address] Calcium.ionized [Moles/Vol]o n 06-03-2024 Calcium.ionized (Bld) [Moles/Vol] 4.7 mg/dL 4.30 - 5.20 mg/dL [facility] Interpretation and review of laboratory results Normal [facility] PH, IONIZED CALCIUM 7.33 7.31 - 7.46 [facility] Comprehensive metabolic 1998 panelon 06-03-2024 Albumin [Mass/Vol] 2.7 g/dL Low 3.4 - 4.8 g/dL [facility] ALP [Catalytic activity/Vol] 56 U/L 40 - 150 U/L [facility] ALT [Catalytic activity/Vol] 10 U/L NINF - 40 U/L [facility] Anion gap [Moles/Vol] 5 mmol/L 3 - 13 mmol/L [facility] AST [Catalytic activity/Vol] 14 U/L NINF - 34 U/L [facility] Bilirubin [Mass/Vol] 0.2 mg/dL NINF - 1.2 mg/dL [facility] Calcium [Mass/Vol] 8.3 mg/dL Low 8.8 - 10. 0 mg/dL [facility] Chloride [Moles/Vol] 105 mmol/L 98 - 10 7 mmol/L [facility] CO2 [Moles/Vol] 27 mmol/L 23 - 31 mmol/L [facility] Creatinine [Mass/Vol] 1.03 mg/dL 0.72 - 1.25 mg/dL [facility] GFR/1.73 sq M.predicted (S/P/Bld) [Vol rate/Area] 79.6 mL/min - PINF [facility] Comment on above: Calculation based on the Chronic Kidney Disease Epidemiology Collaboration (CKD-EPI) equation refit without adjustment for race Glucose [Mass/Vol] 203 mg/dL High 82 - 115 mg/dL [facility] Potassium [Moles/Vol] 4.3 mmol/L 3.5 - 5.1 mmol/L [facility] Comment on above: Plasma potassium adriana ues may be up to 0.5 mmol/L lower than serum values. Protein [Mass/Vol] 5.1 g/dL Low 6.4 - 8.3 g/dL [facility] Sodium [Moles/Vol] 137 mmol/L 136 - 145 mmol/L [facility] Urea nitrogen [Mass/Vol] 37 mg/dL High 9 - 23 mg/dL [facility] Laboratory - Chemistry and C hemistry - challengeon 06-03-2024 Glucose [Mass/Vol] 351 mg/dL High 70 - 100 mg/dL [facility] Glucose [Mass/Vol] 233 mg/dL High 70 - 100 mg/dL [facility] Glucose [Mass/Vol] 172 mg/dL High 70 - 100 mg/dL [facility] Glucose [Mass/Vol] 140 mg/dL High 70 - 100 mg/dL [facility] Magnesium [Mass/Vol] 2.1 mg/dL 1.6 - 2 .6 mg/dL [facility] MAGNESIUMon 06-03-2024 Magnesium [Mass/Vol] 2.1 mg/dL Normal 1.6-2.6 [facility] Comment on above: Result Comment: TAVO Hernandez COMMENTS:Higher values can be expected in females during menses. Performed By: #### L AB113, LAB17, [id number] ####Nurse Research: CLARE HUGGINS ([phone])[facility] [place] (SBHLAB)[address] [place] [address] [place] Magnesium [Mass/Vol]on 06-03 Interpretation and review of laboratory results Normal [facility] Higher values can be expected in females during menses. [facility] No Panel Informationon 06-03 Interpretation and review of laboratory results Abnormal [facility] Performed by: [facility], [address] [facility] [address] CLIA ID: [id number] [facility] Interpretation and review of laboratory results Abnormal [facility] Performed by: [facility], [address] [facility] [address] CLIA ID: [id number] [facility] Interpretation and review of laboratory results Abnormal [facility] Performed by: [facility], [address] [facility] [address] CLIA ID: [id number] [facility] Interpretation and review of laboratory results Abnormal [facility] Performed by: [facility], [address] [facility] [address] CLIA ID: [id number] [facility] Interpretation and review of laboratory results Abnormal [facility] Nursing Noteon 06-03-2024 Nursing Note Attempted to wean patient to 2L NC. Patient sats dropped to 87%. 88-90% on 3L NC. Patient left on 4L NC at this time with continuous pulse ox showing 94%. Instructed to call out with any needs. Normal [facility] PHOSPHORUSon 06-03-2024 Phosphate [Mass/Vol] 2.0 mg/dL Low 2.3-4.7 [facility] Comment on above: Performed By: #### L AB113, LAB17, [id number] ####Nurse Research: CLARE HUGGINS ([phone])[facility] [place] (SB[facility]AB)[address] [place] [address] [place] Phosphate [Moles/Vol]on 05-18 Phosphate [Mass/Vol] 2 mg/dL Low 2.3 - 4 .7 mg/dL [facility] Progress Noteon 06-03-2024 Progress Note Normal [facility] Progress Note Normal [facility] 30on 06-02-2024 30 Normal [facility] 36on 06-02-2024 36 Normal [facility] BASIC METABOLIC PANELon 05-18 Anion gap [Moles/Vol] 6 mmol/L Normal 3-13 [facility] Comment on above: Performed By: #### L AB15, HQU822, [id number] ####Nurse Research: CLARE HUGGINS ([id number])[facility] [place] ([facility])[address] Calcium [Mass/Vol] 8.3 mg/dL Low 8.8-10.0 [facility] Comment on above: Performed By: #### L AB15, DFR477, EXN258 ####Nurse Research: CLARE HUGGINS ([phone])[facility] [place] ([facility])[address] Chloride [Moles/Vol] 106 mmol/L Normal 98-107 [facility] Comment on above: Performed By: #### L AB15, [id number], [id number] ####Nurse Research: CLARE HUGGINS ([phone])[facility] [place] ([facility])[address] CO2 [Moles/Vol] 24 mmol/L Normal 23-31 [facility] Comment on above: Performed By: #### L AB15, QEQ430, [id number] ####Nurse Research: CLARE HUGGINS ([id number])[facility] [place] ([facility])[address] [place] [address] [place] Creatinine [Mass/Vol] 1.20 mg/dL Normal 0.72-1.25 [facility] Comment on above: Performed By: #### L AB15, [id number], GJR059 ####Nurse Research: CLARE HUGGINS ([phone])[facility] [place] ([facility])[address] GLOMERULAR FILTRATION RATE ML/MIN/1.73 SQ M.PREDICTED 66.3 mL/min/1.73m*2 Normal >60.0 [facility] Comment on above: Result Comment: Calc ulation based on the Chronic Kidney Disease Epidemiology Collaboration (CKD-EPI) equation refit without adjustment for race Performed By: #### L AB15, [id number], [id number] ####Nurse Research: CLARE HUGGINS ([id number])[facility] ([facility])[address] Glucose [Mass/Vol] 224 mg/dL High 82-115 [facility] Comment on above: Performed By: #### L AB15, [id number], [id number] ####Nurse Research: CLARE HUGGINS ([phone])[facility] ([facility])[address] Potassium [Moles/Vol] 4.6 mmol/L Normal 3.5-5.1 [facility] Comment on above: Result Comment: [facility] potassium values may be up to 0.5 mmol/L lower than serum values. Performed By: #### L AB15, VUT052, [id number] ####Nurse Research: CLARE HUGGINS ([phone])[facility] ([facility])[address] Sodium [Moles/Vol] 136 mmol/L Normal 136-145 [facility] Comment on above: Performed By: #### L AB15, ICI093, QNK179 ####Nurse Research: CLARE HUGGINS ([phone])[facility] ([facility])[address] [place] [address] [place] Urea nitrogen [Mass/Vol] 50 mg/dL High 9-23 [facility] Comment on above: Performed By: #### L AB15, AGL021, [id number] ####Nurse Research: CLARE HUGGINS ([phone])[facility] ([facility])[address] Basic metabolic 1998 panelon 02-16-2025 Anion gap [Moles/Vol] 6 mmol/L 3 - 13 mmol/L [facility] Calcium [Mass/Vol] 8.3 mg/dL Low 8.8 - 10. 0 mg/dL [facility] Chloride [Moles/Vol] 106 mmol/L 98 - 10 7 mmol/L [facility] CO2 [Moles/Vol] 24 mmol/L 23 - 31 mmol/L [facility] Creatinine [Mass/Vol] 1.2 mg/dL 0.72 - 1.25 mg/dL [facility] GFR/1.73 sq M.predicted (S/P/Bld) [Vol rate/Area] 66.3 mL/min - PINF [facility] Comment on above: Calculation based on the Chronic Kidney Disease Epidemiology Collaboration (CKD-EPI) equation refit without adjustment for race Glucose [Mass/Vol] 224 mg/dL High 82 - 115 mg/dL [facility] Interpretation and review of laboratory results Abnormal [facility] Potassium [Moles/Vol] 4.6 mmol/L 3.5 - 5.1 mmol/L [facility] Comment on above: Plasma potassium adriana ues may be up to 0.5 mmol/L lower than serum values. Sodium [Moles/Vol] 136 mmol/L 136 - 145 mmol/L [facility] Urea nitrogen [Mass/Vol] 50 mg/dL High 9 - 23 mg/dL [facility] CALCIUM, IONIZEDon CALCIUM IONIZED 4.80 mg/dL Normal 4.30-5.20 [facility] Comment on above: Performed By: #### L AB54 ####Nurse Research: CLARE HUGGINS ([phone])[facility] [place] [address] PH, IONIZED CALCIUM 7.32 Normal 7.31-7.46 [facility] Comment on above: Performed By: #### L AB54 ####Nurse Research: CLARE HUGGINS ([phone])[facility] [place] [address] CBC W Auto Differential pane l (Bld)on 06-02-2024 Erythrocyte distribution width (RBC) [Ratio] 15.1 % High 11.5 - 15.0 % [facility] Hematocrit (Bld) [Volume fraction] 29.6 % Low 40.0 - 52.0 % [facility] Hemoglobin (Bld) [Mass/Vol] 8.9 g/dL Low 13.0 - 18.0 g/dL [facility] MCH (RBC) [Entitic mass] 28.6 pg 26. 0 - 34.0 pg [facility] MCHC (RBC) [Mass/Vol] 30.1 % Low 30.5 - 36.0 % [facility] MCV (RBC) [Entitic vol] 95.2 fL 77.0 - 99.0 fL [facility] Platelet mean volume (Bld) [Entitic vol] 10.4 fL 9.0 - 12.7 fL [facility] Platelets (Bld) [#/Vol] 206 10*3/uL 140 - 440 10*3/uL [facility] RBC (Bld) [#/Vol] 3.11 10*6/uL Low 4.40 - 5.9 0 10*6/uL [facility] WBC (Bld) [#/Vol] 7.5 10*3/uL 3.6 - 10.7 10*3/uL [facility] CBC WITH AUTO DIFFERENTIALon 06-02-2024 Erythrocyte distribution width (RBC) [Ratio] 15.1 % High 11.5-15.0 [facility] Comment on above: Performed By: #### L [id number], [id number] ####Nurse Research: CLARE HUGGINS ([phone])[facility] ([facility])[address] [place] [address] Hematocrit (Bld) [Volume fraction] 29.6 % Low 40.0-52.0 [facility] Comment on above: Performed By: #### L [id number], [id number] ####Nurse Research: CLARE HUGGINS ([id number])[facility] ([facility])[address] Hemoglobin (Bld) [Mass/Vol] 8.9 g/dL Low 13.0-18.0 [facility] Comment on above: Performed By: #### L [id number], [id number] ####Nurse Research: CLARE [phone])[place] ([facility])[address] MCH (RBC) [Entitic mass] 28.6 pg Normal 26.0-34.0 [facility] Comment on above: Performed By: #### L [id number], [id number] ####Nurse Research: CLARE HUGGINS ([phone])[facility] ([facility])[address] MCHC 30.1 % Low 30.5-36.0 [facility] Comment on above: Performed By: #### L [id number], [id number] ####Nurse Research: CLARE HUGGINS ([phone])[facility] ([facility])[address] MCV (RBC) [Entitic vol] 95.2 fL Normal 77.0-99.0 [facility] Comment on above: Performed By: #### L [id number], [id number] ####Nurse Research: CLARE HUGGINS ([phone])[facility] ([facility])[address] Platelet mean volume (Bld) [Entitic vol] 10.4 fL Normal 9.0-12.7 [facility] Comment on above: Performed By: #### L [id number], [id number] ####Nurse Research: CLARE HUGGINS ([id number])[facility] ([facility])[address] [place] [address] [place] Platelets (Bld) [#/Vol] 206 10*3/uL Normal 140-440 [facility] Comment on above: Performed By: #### L [id number], [id number] ####Nurse Research: CLARE HUGGINS ([id number])[facility] ([facility])[address] RBC (Bld) [#/Vol] 3.11 10*6/uL Low 4.40-5.90 [facility] Comment on above: Performed By: #### L [id number], [id number] ####Nurse Research: CLARE HUGGINS ([id number])[facility] ([facility])[address] [place] [address] WBC (Bld) [#/Vol] 7.5 10*3/uL Normal 3.6-10.7 [facility] Comment on above: Performed By: #### L [id number], [id number] ####Nurse Research: CLARE HUGGINS ([phone])[facility] ([facility])[address] Calcium.ionized [Moles/Vol]o n 06-02-2024 Calcium.ionized (Bld) [Moles/Vol] 4.8 mg/dL 4.30 - 5.20 mg/dL [facility] Interpretation and review of laboratory results Normal [facility] PH, IONIZED CALCIUM 7.32 7.31 - 7.46 [facility] Consulton 06-02-2024 Consult Normal [facility] Laboratory - Chemistry and C hemistry - challengeon 06-02-2024 Glucose [Mass/Vol] 195 mg/dL High 70 - 100 mg/dL [facility] Glucose [Mass/Vol] 148 mg/dL High 70 - 100 mg/dL [facility] Glucose [Mass/Vol] 186 mg/dL High 70 - 100 mg/dL [facility] Glucose [Mass/Vol] 178 mg/dL High 70 - 100 mg/dL [facility] Magnesium [Mass/Vol] 2.4 mg/dL 1.6 - 2 .6 mg/dL [facility] Laboratory - Hematology and Cell countson 06-02-2024 Band form neutrophils (Bld) [#/Vol] 0.1 10*3/uL High NINF - 0.0 10*3/uL [facility] Band form neutrophils/100 WBC (Bld) 1 % High NINF - 0 % [facility] Hypochromia Ql (Bld) Slight Abnormal (none) [facility] Lymphocytes (Bld) [#/Vol] 0.5 10*3/uL Low 1.0 - 4.3 10*3/uL [facility] Lymphocytes/100 WBC (Bld) 7 % Low 15 - 45 % [facility] Monocytes (Bld) [#/Vol] 0.2 10*3/uL 0.0 - 0.9 10*3/uL [facility] Monocytes/100 WBC (Bld) 2 % Low 5 - 13 % [facility] Neutrophils (Bld) [#/Vol] 6.8 10*3/uL 1.8 - 7.5 10*3/uL [facility] Ovalocytes LM Ql (Bld) Moderate Abnormal (none) [facility] Poikilocytosis LM Ql (Bld) Slight Abnormal (none) [facility] Polychromasia LM Ql (Bld) Slight Abnormal (none) [facility] RBC morphology finding Nom (Bld) abnormal [facility] Segmented neutrophils/100 WBC (Bld) 90 % High 38 - 82 % [facility] MAGNESIUMon 06-02-2024 Magnesium [Mass/Vol] 2.4 mg/dL Normal 1.6-2.6 [facility] Comment on above: Result Comment: TAVO Hernandez COMMENTS:Higher values can be expected in females during menses. Performed By: #### L AB15, [id number], [id number] ####Nurse Research: CLARE HUGGINS ([phone])[facility] ([facility])[address] MANUAL DIFFERENTIAL (CELLAVI JARROD)on 06-02-2024 BAND NEUTROPHILS TOTAL PER COUNTED LEUKOCYTES BY MANUAL COUNT 1 Normal [facility] Comment on above: Performed By: #### L [id number], [id number] ####Nurse Research: CLARE HUGGINS ([phone])[facility] [place] ([facility])[address] BANDS (10*3/UL) IN BLOOD-CELLAVISION 0.1 10*3/uL High <=0.0 [facility] Comment on above: Performed By: #### L [id number], [id number] ####Nurse Research: CLARE HUGGINS ([phone])[facility] [place] ([facility])[address] BASOPHILS TOTAL PER COUNTED LEUKOCYTES BY MANUAL COUNT Normal [facility] Comment on above: Performed By: #### L [id number], [id number] ####Nurse Research: CLARECLAUDIO HUGGINS ([phone])[facility] [place] ([facility])[address] BLASTS TOTAL PER COUNTED LEUKOCYTES BY MANUAL COUNT Normal [facility] Comment on above: Performed By: #### L [id number], [id number] ####Nurse Research: CLARE JOSELUIS ([phone])[facility] [place] ([facility])[address] [place] [address] [place] EOSINOPHILS TOTAL PER COUNTED LEUKOCYTES BY MANUAL COUNT Normal [facility] Comment on above: Performed By: #### L [id number] ####Nurse Research: [facility] HUGGINS ([id number])[facility] [place] ([facility])[address] HYPOCHROMIA (PRESENCE) IN BLOOD BY LIGHT MICROSCOPY Slight Abnormal (none) [facility] Comment on above: Performed By: #### L [id number] ####Nurse Research: CLARE WINTERVERN ([phone])[facility] [place] ([facility])[address] [place] [address] [place] LYMPHOCYTES (10*3/UL) IN BLOOD-CELLAVISION 0.5 10*3/uL Low 1.0-4.3 [facility] Comment on above: Performed By: #### L [id number], [id number] ####Nurse Research: CLARE JOSELUIS ([phone])[facility] [place] (SB[facility])[address] [place] [address] [place] LYMPHOCYTES TOTAL PER COUNTED LEUKOCYTES BY MANUAL COUNT 7 Normal [facility] Comment on above: Performed By: #### L [id number], [id number] ####Nurse Research: CLARE WINTERVERN ([phone])[facility] [place] ([facility])[address] [place] [address] [place] LYMPHOCYTES/100 LEUKOCYTES IN BLOOD-CELLAVISION 7 % Low 15-45 [facility] Comment on above: Performed By: #### L [id number], [id number] ####Nurse Research: CLARE MERCERKRISTYN ([phone])[facility] [place] (SBHLAB)[address] [place] [address] [place] METAMYELOCYTES TOTAL PER COUNTED LEUKOCYTES BY MANUAL COUNT Normal [facility] Comment on above: Performed By: #### L [id number], [id number] ####Nurse Research: CLARE WINTERVERN ([phone])[facility] [place] ([facility])[address] [place] [address] [place] MONOCYTES (10*3/UL) IN BLOOD-CELLAVISION 0.2 10*3/uL Normal 0.0-0.9 [facility] Comment on above: Performed By: #### L [id number], [id number] ####Nurse Research: CLARE WINTERVERN ([phone])[facility] [place] ([facility])[address] [place] [address] [place] MONOCYTES TOTAL PER COUNTED LEUKOCYTES BY MANUAL COUNT 2 Normal [facility] Comment on above: Performed By: #### L [id number], [id number] ####Nurse Research: CLARE WINTERVERN ([phone])[facility] [place] ([facility])[address] [place] [address] [place] MONOCYTES/100 LEUKOCYTES IN BLOOD-ROGER 2 % Low 5-13 [facility] Comment on above: Performed By: #### L [id number], [id number] ####Nurse Research: CLARE MERCERKRISTYN ([phone])[facility] [place] ([facility])[address] [place] [address] [place] MYELOCYTES COUNTED BY MANUAL COUNT Normal [facility] Comment on above: Performed By: #### L [id number], [id number] ####Nurse Research: CLARE MERCERKRISTYN ([phone])[facility] [place] ([facility])[address] [place] [address] [place] NEUTROPHILS BAND FORM/100 LEUKOCYTES IN BLOOD-CELLAVISI 1 % High <=0 [facility] Comment on above: Performed By: #### L [id number], [id number] ####Nurse Research: CLARE HUGGINS ([phone])[facility] [place] (SBHLAB)[address] [place] [address] [place] NEUTROPHILS TOTAL PER COUNTED LEUKOCYTES BY MANUAL COUNT 90 Normal [facility] Comment on above: Performed By: #### L [id number], [id number] ####Nurse Research: CLARE HUGGINS ([phone])[facility] [place] ([facility])[address] [place] [address] [place] OVALOCYTES PRESENCE IN BLOOD BY LIGHT MICROSCOPY Moderate Abnormal (none) [facility] Comment on above: Performed By: #### L [id number], [id number] ####Nurse Research: CLARE HUGGINS ([phone])[facility] [place] ([facility])[address] [place] [address] [place] POIKILOCYTOSIS (PRESENCE) IN BLOOD BY LIGHT MICROSCOPY Slight Abnormal (none) [facility] Comment on above: Performed By: #### L [id number], [id number] ####Nurse Research: CLARE HUGGINS ([phone])[facility] [place] ([facility])[address] [place] [address] [place] POLYCHROMASIA IN BLOOD BY LIGHT MICROSCOPY Slight Abnormal (none) [facility] Comment on above: Performed By: #### L [id number], [id number] ####Nurse Research: CLARE HUGGINS ([phone])[facility] [place] ([facility])[address] [place] [address] [place] PROMYELOCYTES TOTAL PER COUNTED LEUKOCYTES BY MANUAL COUNT Normal [facility] Comment on above: Performed By: #### L [id number], [id number] ####Nurse Research: CLARE HUGGINS ([phone])[facility] [place] ([facility])[address] [place] [address] [place] RBC MORPHOLOGY IN BLOOD abnormal Normal [facility] Comment on above: Performed By: #### L [id number], [id number] ####Nurse Research: CLARE HUGGINS ([phone])[facility] [place] ([facility])[address] [place] [address] [place] SEGMENTED NEUTROPHILS (10*3/UL) IN BLOOD-CELLAVISION 6.8 10*3/uL Normal 1.8-7.5 [facility] Comment on above: Performed By: #### L [id number], [id number] ####Nurse Research: CLARE HUGGINS ([phone])[facility] [place] (SBHLAB)[address] SEGMENTED NEUTROPHILS/100 LEUKOCYTES-CE 90 % High 38-82 [facility] Comment on above: Performed By: #### L [id number], [id number] ####Nurse Research: CLARE HUGGINS ([phone])[facility] [place] (SBHLAB)[address] UNCLASSIFIED CELLS TOTAL PER COUNTED LEUKOCYTES BY MANUAL COUNT Normal [facility] Comment on above: Performed By: #### L [id number], [id number] ####Nurse Research: CLARE HUGGINS ([phone])[facility] [place] (SBHLAB)[address] VARIANT LYMPHOCYTES TOTAL PER COUNTED LEUKOCYTES BY MANUAL COUNT Normal [facility] Comment on above: Performed By: #### L [id number], [id number] ####Nurse Research: CLARE HUGGINS ([phone])[facility] [place] (SBHLAB)[address] [place] [address] Magnesium [Mass/Vol]on 06-02 Higher values can be expected in females during menses. [facility] No Panel Informationon 06-02 Interpretation and review of laboratory results Abnormal [facility]formed by: [facility], [address] [place] [address] CLIA ID: [id number] [facility] Interpretation and review of laboratory results Abnormal [facility] Performed by: [facility], [address] [place] [address] CLIA ID: [id number] [facility] Interpretation and review of laboratory results Abnormal [facility] Performed by: [facility], [address] [facility] [address] CLIA ID: [id number] [facility] Interpretation and review of laboratory results Abnormal [facility] Performed by: [facility], [address] [facility] [address] CLIA ID: [id number] [facility] Atypical Lymphocytes Manual [facility] Bands Manual 1 [facility] Basophils Manual [facility] Blasts Manual [facility] Eosinophils Manual [facility] Interpretation and review of laboratory results Abnormal [facility] Lymphocytes Manual 7 [facility] Metamyelocytes Manual [facility] Monocytes Manual 2 [facility] alth Myelocytes Manual [facility] ealth Neutrophils Manual 90 [facility] Promyelocytes Manual [facility] Unclassified Cells, Manual [facility] Interpretation and review of laboratory results Normal [facility] PHOSPHORUSon 06-02-2024 Phosphate [Mass/Vol] 2.5 mg/dL Normal 2.3-4.7 [facility] Comment on above: Performed By: #### L AB15, [id number], [id number] ####Nurse Research: CLARE HUGGINS ([phone])[facility] (SBHLAB)[address] [place] [address] [place] Phosphate [Moles/Vol]on 05-18 Phosphate [Mass/Vol] 2.5 mg/dL 2.3 - 4 .7 mg/dL [facility] Progress Noteon 06-02-2024 Progress Note Normal [facility] Progress Note Normal [facility] Progress Note Pt transferred out t o usacs service from icu. Normal [facility] 30on 06-01-2024 30 Normal [facility] BASIC METABOLIC PANELon 05-18 Anion gap [Moles/Vol] 6 mmol/L Normal 3-13 [facility] Comment on above: Performed By: #### L AB103, [id number], LAB15 ####Nurse Research: CLARE HUGGINS ([phone])[facility] (SBHLAB)[address] [place] [address] [place] Calcium [Mass/Vol] 8.5 mg/dL Low 8.8-10.0 [facility] Comment on above: Performed By: #### L AB103, [id number], LAB15 ####Nurse Research: CLARE HUGGINS ([phone])[facility] [place] (SBHLAB)[address] Chloride [Moles/Vol] 105 mmol/L Normal 98-107 [facility] Comment on above: Performed By: #### L AB103, [id number], LAB15 ####Nurse Research: CLARE HUGGINS ([phone])[facility] (SB[facility]AB)[address] CO2 [Moles/Vol] 22 mmol/L Low 23-31 [facility] Comment on above: Performed By: #### L AB103, [id number], LAB15 ####Nurse Research: CLARE HUGGINS ([phone])[facility] (SBHLAB)[address] Creatinine [Mass/Vol] 1.43 mg/dL High 0.72-1.25 [facility] Comment on above: Performed By: #### L AB103, UMK537, LAB15 ####Nurse Research: CLARE HUGGINS ([phone])[facility] (HLAB)[address] GLOMERULAR FILTRATION RATE ML/MIN/1.73 SQ M.PREDICTED 53.7 mL/min/1.73m*2 Low >60.0 [facility] Comment on above: Result Comment: Calc ulation based on the Chronic Kidney Disease Epidemiology Collaboration (CKD-EPI) equation refit without adjustment for race Performed By: #### L AB103, [id number], LAB15 ####Nurse Research: CLARE HUGGNIS ([phone])[facility] (SBHLAB)[address] [place] [address] [place] Glucose [Mass/Vol] 253 mg/dL High 82-115 [facility] Comment on above: Performed By: #### L AB103, [id number], LAB15 ####Nurse Research: CLARE HUGGINS ([phone])[facility] (SBHLAB)[address] Potassium [Moles/Vol] 4.8 mmol/L Normal 3.5-5.1 [facility] Comment on above: Result Comment: [facility] potassium values may be up to 0.5 mmol/L lower than serum values. Performed By: #### L AB103, [id number], LAB15 ####Nurse Research: CLARE HUGGINS ([phone])[facility] (SBHLAB)[address] Sodium [Moles/Vol] 133 mmol/L Low 136-145 [facility] Comment on above: Performed By: #### L AB103, [id number], LAB15 ####Nurse Research: CLARE HUGGINS ([phone])[facility] (SBHLAB)[address] Urea nitrogen [Mass/Vol] 62 mg/dL High 9-23 [facility] Comment on above: Performed By: #### L AB103, JBU135, LAB15 ####Nurse Research: CLARE HUGGINS ([phone])[facility] (SBHLAB)[address] [place] [address] Basic metabolic 1998 panelon 06-01-2024 Anion gap [Moles/Vol] 6 mmol/L 3 - 13 mmol/L [facility] Calcium [Mass/Vol] 8.5 mg/dL Low 8.8 - 10. 0 mg/dL [facility] Chloride [Moles/Vol] 105 mmol/L 98 - 10 7 mmol/L [facility] CO2 [Moles/Vol] 22 mmol/L Low 23 - 31 mmol/L [facility] Creatinine [Mass/Vol] 1.43 mg/dL High 0.72 - 1.25 mg/dL [facility] GFR/1.73 sq M.predicted (S/P/Bld) [Vol rate/Area] 53.7 mL/min Low - PINF [facility] Comment on above: Calculation based on the Chronic Kidney Disease Epidemiology Collaboration (CKD-EPI) equation refit without adjustment for race Glucose [Mass/Vol] 253 mg/dL High 82 - 115 mg/dL [facility] Interpretation and review of laboratory results Abnormal [facility] Potassium [Moles/Vol] 4.8 mmol/L 3.5 - 5.1 mmol/L [facility] Comment on above: Plasma potassium adriana ues may be up to 0.5 mmol/L lower than serum values. Sodium [Moles/Vol] 133 mmol/L Low 136 - 145 mmol/L [facility] Urea nitrogen [Mass/Vol] 62 mg/dL High 9 - 23 mg/dL [facility] CALCIUM, IONIZEDon CALCIUM IONIZED 4.60 mg/dL Normal 4.30-5.20 [facility] Comment on above: Performed By: #### L AB54 ####Nurse Research: CLARE HUGGINS ([phone])[facility] [place] [address] PH, IONIZED CALCIUM 7.31 Normal 7.31-7.46 [facility] Comment on above: Performed By: #### L AB54 ####Nurse Research: CLARE HUGGINS ([phone])[facility] (SBAB)[address] [place] [address] CBC W Auto Differential pane l (Bld)Ordered By: Nancy Kam on 06-01-2024 Basophils (Bld) [#/Vol] 0 10*3/uL 0.0 - 0.2 10*3/uL [facility] Basophils/100 WBC (Bld) 0.1 % 0.0 - 2.0 % [facility] Eosinophils (Bld) [#/Vol] 0 10*3/uL 0.0 - 0.5 10*3/uL [facility] Eosinophils/100 WBC (Bld) 0 % 0.0 - 6.0 % [facility] Erythrocyte distribution width (RBC) [Ratio] 15.4 % High 11.5 - 15.0 % [facility] Hematocrit (Bld) [Volume fraction] 30.7 % Low 40.0 - 52.0 % [facility] Hemoglobin (Bld) [Mass/Vol] 9.2 g/dL Low 13.0 - 18.0 g/dL [facility] Immature granulocytes (Bld) [#/Vol] 0.1 10*3/uL High NINF - 0.1 10*3/uL [facility] Immature granulocytes/100 WBC (Bld) 0.7 % 0.0 - 2.0 % [facility] Interpretation and review of laboratory results Abnormal [facility] Lymphocytes (Bld) [#/Vol] 0.6 10*3/uL Low 1.0 - 4.3 10*3/uL [facility] Lymphocytes/100 WBC (Bld) 6.9 % Low 15.0 - 45.0 % [facility] MCH (RBC) [Entitic mass] 29.1 pg 26. 0 - 34.0 pg [facility] MCHC (RBC) [Mass/Vol] 30 % Low 30.5 - 36.0 % [facility] MCV (RBC) [Entitic vol] 97.2 fL 77.0 - 99.0 fL [facility] Monocytes (Bld) [#/Vol] 0.6 10*3/uL 0.0 - 0.9 10*3/uL [facility] Monocytes/100 WBC (Bld) 6.4 % 5.0 - 13.0 % [facility] Neutrophils (Bld) [#/Vol] 7.8 10*3/uL High 1.8 - 7.5 10*3/uL [facility] Neutrophils/100 WBC (Bld) 85.9 % High 38.0 - 82.0 % [facility] Nucleated RBC/100 WBC (Bld) [Ratio] 0 % [facility] Platelet mean volume (Bld) [Entitic vol] 10.8 fL 9.0 - 12.7 fL [facility] Platelets (Bld) [#/Vol] 205 10*3/uL 140 - 440 10*3/uL [facility] RBC (Bld) [#/Vol] 3.16 10*6/uL Low 4.40 - 5.9 0 10*6/uL [facility] WBC (Bld) [#/Vol] 9.1 10*3/uL 3.6 - 10.7 10*3/uL [facility] CBC WITH AUTO DIFFERENTIALon 06-01-2024 Basophils (Bld) [#/Vol] 0.0 10*3/uL Normal 0.0-0.2 [facility] Comment on above: Performed By: #### L [id number] ####Nurse Research: CLARE HUGGINS ([phone])[facility] [place] (SBHLAB)[address] Basophils/100 WBC (Bld) 0.1 % Normal 0.0-2.0 [facility] Comment on above: Performed By: #### L [id number] ####Nurse Research: CLARE MERCERKRISTYN ([phone])[facility] [place] (SBHLAB)[address] Eosinophils (Bld) [#/Vol] 0.0 10*3/uL Normal 0.0-0.5 [facility] Comment on above: Performed By: #### L [id number] ####Nurse Research: CLARE HUGGINS ([phone])[facility] [place] (SBHLAB)[address] Eosinophils/100 WBC (Bld) 0.0 % Normal 0.0-6.0 [facility] Comment on above: Performed By: #### L [id number] ####Nurse Research: CLARE MERCERKRISTYN ([phone])[facility] [place] (SBHLAB)[address] Erythrocyte distribution width (RBC) [Ratio] 15.4 % High 11.5-15.0 [facility] Comment on above: Performed By: #### L [id number] ####Nurse Research: CLARE HUGGINS ([phone])[facility] [place] (SBHLAB)[address] Hematocrit (Bld) [Volume fraction] 30.7 % Low 40.0-52.0 [facility] Comment on above: Performed By: #### L [id number] ####Nurse Research: CLARE HUGGNIS ([phone])[facility] [place] (SBHLAB)[address] Hemoglobin (Bld) [Mass/Vol] 9.2 g/dL Low 13.0-18.0 [facility] Comment on above: Performed By: #### L [id number] ####Nurse Research: CLARE HUGGINS ([phone])[facility] [place] ([facility])[address] IMMATURE GRANS % 0.7 % Normal 0.0-2.0 [facility] Comment on above: Performed By: #### L [id number] ####Nurse Research: CLARE HUGGINS ([phone])[facility] (SBHLAB)[address] IMMATURE GRANS ABSOLUTE 0.1 10*3/uL High <0.1 [facility] Comment on above: Performed By: #### L [id number] ####Nurse Research: CLARE HUGGINS ([phone])[facility] (SBHLAB)[address] Lymphocytes (Bld) [#/Vol] 0.6 10*3/uL Low 1.0-4.3 [facility] Comment on above: Performed By: #### L [id number] ####Nurse Research: CLARE HUGGINS ([phone])[facility] (SBHLAB)[address] Lymphocytes/100 WBC (Bld) 6.9 % Low 15.0-45.0 [facility] Comment on above: Performed By: #### L [id number] ####Nurse Research: CLARE HUGGINS ([phone])[facility] (SBHLAB)[address] MCH (RBC) [Entitic mass] 29.1 pg Normal 26.0-34.0 [facility] Comment on above: Performed By: #### L [id number] ####Nurse Research: CLARE HUGGINS ([phone])[facility] (SBHL[facility])[address] MCHC 30.0 % Low 30.5-36.0 [facility] Comment on above: Performed By: #### L [id number] ####Nurse Research: CLARE HUGGINS ([phone])[facility] [place] (SBHLAB)[address] MCV (RBC) [Entitic vol] 97.2 fL Normal 77.0-99.0 [facility] Comment on above: Performed By: #### L [id number] ####Nurse Research: CLARE HUGGINS ([phone])[facility] [place] (SBHLAB)[address] Monocytes (Bld) [#/Vol] 0.6 10*3/uL Normal 0.0-0.9 [facility] Comment on above: Performed By: #### L [id number] ####Nurse Research: CLARE HUGGINS ([phone])[facility] [place] ([facility])[address] Monocytes/100 WBC (Bld) 6.4 % Normal 5.0-13.0 [facility] Comment on above: Performed By: #### L [id number] ####Nurse Research: CLARE HUGGINS ([phone])[facility] [place] ([facility])[address] NEUTROPHILS ABSOLUTE 7.8 10*3/uL High 1.8-7.5 [facility] Comment on above: Performed By: #### L [id number] ####Nurse Research: CLARE HUGGINS ([phone])[facility] [place] ([facility])[address] Neutrophils/100 WBC (Bld) 85.9 % High 38.0-82.0 [facility] Comment on above: Performed By: #### L [id number] ####Nurse Research: CLARE HUGGINS ([phone])[facility] [place] (SBHLAB)[address] [place] [address] [place] NRBC 0.0 /100 WBCs Normal 0.0-2.0 [facility] Comment on above: Performed By: #### L [id number] ####Nurse Research: CLARE HUGGINS ([phone])[facility] (SB[facility])[address] Platelet mean volume (Bld) [Entitic vol] 10.8 fL Normal 9.0-12.7 [facility] Comment on above: Performed By: #### L [id number] ####Nurse Research: CLARE HUGGINS ([phone])[facility] (SBHLAB)[address] Platelets (Bld) [#/Vol] 205 10*3/uL Normal 140-440 [facility] Comment on above: Performed By: #### L [id number] ####Nurse Research: CLARE HUGGINS ([phone])[facility] [place] (SBHLAB)[address] [place] [address] RBC (Bld) [#/Vol] 3.16 10*6/uL Low 4.40-5.90 [facility] Comment on above: Performed By: #### L [id number] ####Nurse Research: CLARE HUGGINS ([phone])[facility] (SBHLAB)[address] [place] [address] WBC (Bld) [#/Vol] 9.1 10*3/uL Normal 3.6-10.7 [facility] Comment on above: Performed By: #### L [id number] ####Nurse Research: CLARE HUGGINS ([phone])[facility] (SBHLAB)[address] [place] [address] Calcium.ionized [Moles/Vol]o n 06-01-2024 Calcium.ionized (Bld) [Moles/Vol] 4.6 mg/dL 4.30 - 5.20 mg/dL [facility] Interpretation and review of laboratory results Normal [facility] PH, IONIZED CALCIUM 7.31 7.31 - 7.46 [facility] - Chemistry and C hemistry - challengeon 06-01-2024 Glucose [Mass/Vol] 271 mg/dL High 70 - 100 mg/dL [facility] Glucose [Mass/Vol] 281 mg/dL High 70 - 100 mg/dL [facility] Glucose [Mass/Vol] 257 mg/dL High 70 - 100 mg/dL [facility] Glucose [Mass/Vol] 251 mg/dL High 70 - 100 mg/dL [facility] Magnesium [Mass/Vol] 2.6 mg/dL 1.6 - 2 .6 mg/dL [facility] MAGNESIUMon 06-01-2024 Magnesium [Mass/Vol] 2.6 mg/dL Normal 1.6-2.6 [facility] Comment on above: Result Comment: TAVO Hernandez COMMENTS:Higher values can be expected in females during menses. Performed By: #### L AB103, [id number], LAB15 ####Nurse Research: CLARE HUGGINS ([phone])[facility] ([facility])[address] [place] [address] Magnesium [Mass/Vol]on 06-01 Higher values can be expected in females during menses. [facility] No Panel Informationon 06-01 Interpretation and review of laboratory results Abnormal [facility] Performed by: [facility], [address] [place] [address] CLIA ID: [id number] [facility] Interpretation and review of laboratory results Abnormal [facility] Performed by: [facility], [address] [place] [address] CLIA ID: [id number] [facility] Interpretation and review of laboratory results Abnormal [facility] Performed by: [facility], [address] [place] [address] CLIA ID: [id number] [facility] Interpretation and review of laboratory results Abnormal [facility] Performed by: [facility], [address] [place] [address] CLIA ID: [id number] [facility] Interpretation and review of laboratory results Normal [facility] PHOSPHORUSon 06-01-2024 Phosphate [Mass/Vol] 4.1 mg/dL Normal 2.3-4.7 [facility] Comment on above: Performed By: #### L AB103, [id number], LAB15 ####Nurse Research: CLARE HUGGINS ([phone])[facility] [place] (SBHLAB)[address] [place] [address] [place] Phosphate [Moles/Vol]on 05-18 Phosphate [Mass/Vol] 4.1 mg/dL 2.3 - 4 .7 mg/dL [facility] Progress Noteon 06-01-2024 Progress Note Normal [facility] Progress Note Normal [facility] 30on 05-31-2024 30 Normal [facility] [id number] 05-31-2024 [id number] Normal [facility] BASIC METABOLIC PANELon 05-18 Anion gap [Moles/Vol] 8 mmol/L Normal 3-13 [facility] Comment on above: Performed By: #### L AB113, LAB15, [id number], LAB20, [id number] ####Nurse Research: CLARE HUGGINS ([phone])[facility] (SBHLAB)[address] [place] [address] [place] Calcium [Mass/Vol] 8.1 mg/dL Low 8.8-10.0 [facility] Comment on above: Performed By: #### L AB113, LAB15, [id number], LAB20, [id number] ####Nurse Research: CLARE HUGGINS ([phone])[facility] (SBHLAB)[address] [place] [address] [place] Chloride [Moles/Vol] 111 mmol/L High 98-107 [facility] Comment on above: Performed By: #### L AB113, LAB15, EAR101, LAB20, [id number] ####Nurse Research: CLARE HUGGINS ([phone])[facility] [place] (SB[facility])[address] [place] [address] [place] CO2 [Moles/Vol] 20 mmol/L Low 23-31 [facility] Comment on above: Performed By: #### L AB113, LAB15, [id number], LAB20, [id number] ####Nurse Research: CLARE HUGGINS ([phone])[facility] ([facility] [place] [address] [place] Creatinine [Mass/Vol] 1.58 mg/dL High 0.72-1.25 [facility] Comment on above: Performed By: #### L AB113, LAB15, [id number], LAB20, [id number] ####Nurse Research: CLARE HUGGINS ([phone])[facility])[address] GLOMERULAR FILTRATION RATE ML/MIN/1.73 SQ M.PREDICTED 47.6 mL/min/1.73m*2 Low >60.0 [facility] Comment on above: Result Comment: Calc ulation based on the Chronic Kidney Disease Epidemiology Collaboration (CKD-EPI) equation refit without adjustment for race Performed By: #### L AB113, LAB15, [id number], LAB20, [id number] ####Nurse Research: CLARE HUGGINS ([phone])[facility] ([facility])[address] [place] [address] [place] Glucose [Mass/Vol] 194 mg/dL High 82-115 [facility] Comment on above: Performed By: #### L AB113, LAB15, [id number], LAB20, [id number] ####Nurse Research: CLARE HUGGINS ([phone])[facility] ([facility])[address] [place] [address] Potassium [Moles/Vol] 4.8 mmol/L Normal 3.5-5.1 [facility] Comment on above: Result Comment: [facility] potassium values may be up to 0.5 mmol/L lower than serum values. Performed By: #### L AB113, LAB15, [id number], LAB20, [id number] ####Nurse Research: CLARE HUGGINS ([phone])[facility] [place] [address] [place] Sodium [Moles/Vol] 139 mmol/L Normal 136-145 [facility] Comment on above: Performed By: #### L AB113, LAB15, [id number], LAB20, [id number] ####Nurse Research: CLARE HUGGINS ([phone])[facility] ([facility])[address] Urea nitrogen [Mass/Vol] 58 mg/dL High 9-23 [facility] Comment on above: Performed By: #### L AB113, LAB15, [id number], LAB20, [id number] ####Nurse Research: CLARE HUGGINS ([phone])[facility] ([facility])[address] Basic metabolic 1998 panelon 05-31-2024 Anion gap [Moles/Vol] 8 mmol/L 3 - 13 mmol/L [facility] Calcium [Mass/Vol] 8.1 mg/dL Low 8.8 - 10. 0 mg/dL [facility] Chloride [Moles/Vol] 111 mmol/L High 98 - 10 7 mmol/L [facility] CO2 [Moles/Vol] 20 mmol/L Low 23 - 31 mmol/L [facility] Creatinine [Mass/Vol] 1.58 mg/dL High 0.72 - 1.25 mg/dL [facility] GFR/1.73 sq M.predicted (S/P/Bld) [Vol rate/Area] 47.6 mL/min Low - PINF [facility] Comment on above: Calculation based on the Chronic Kidney Disease Epidemiology Collaboration (CKD-EPI) equation refit without adjustment for race Glucose [Mass/Vol] 194 mg/dL High 82 - 115 mg/dL [facility] Potassium [Moles/Vol] 4.8 mmol/L 3.5 - 5.1 mmol/L [facility] Comment on above: Plasma potassium adriana ues may be up to 0.5 mmol/L lower than serum values. Sodium [Moles/Vol] 139 mmol/L 136 - 145 mmol/L [facility] Urea nitrogen [Mass/Vol] 58 mg/dL High 9 - 23 mg/dL [facility] CALCIUM, IONIZEDon CALCIUM IONIZED 4.10 mg/dL Low 4.30-5.20 [facility] Comment on above: Performed By: #### L [id number] ####Nurse Research: CLARE HUGGINS ([phone])[facility] ([facility])[address] PH, IONIZED CALCIUM 7.37 Normal 7.31-7.46 [facility] Comment on above: Performed By: #### L [id number] ####Nurse Research: CLARE HUGGINS ([phone])[facility] ([facility])[address] CBC W Auto Differential pane l (Bld)Ordered By: Verónica Kitchen on 05-31-2024 Erythrocyte distribution width (RBC) [Ratio] 15.3 % High 11.5 - 15.0 % [facility] Hematocrit (Bld) [Volume fraction] 33.8 % Low 40.0 - 52.0 % [facility] Hemoglobin (Bld) [Mass/Vol] 9.8 g/dL Low 13.0 - 18.0 g/dL [facility] MCH (RBC) [Entitic mass] 28.7 pg 26. 0 - 34.0 pg [facility] MCHC (RBC) [Mass/Vol] 29 % Low 30.5 - 36.0 % [facility] MCV (RBC) [Entitic vol] 99.1 fL High 77.0 - 99.0 fL [facility] Platelet mean volume (Bld) [Entitic vol] 10.8 fL 9.0 - 12.7 fL [facility] Platelets (Bld) [#/Vol] 194 10*3/uL 140 - 440 10*3/uL [facility] RBC (Bld) [#/Vol] 3.41 10*6/uL Low 4.40 - 5.9 0 10*6/uL [facility] WBC (Bld) [#/Vol] 11.4 10*3/uL High 3.6 - 10.7 10*3/uL [facility] CBC WITH AUTO DIFFERENTIALon 05-31-2024 Erythrocyte distribution width (RBC) [Ratio] 15.3 % High 11.5-15.0 [facility] Comment on above: Performed By: #### L [id number], [id number] ####Nurse Research: CLARE HUGGINS ([phone])[facility] ([facility])[address] [place] [address] Hematocrit (Bld) [Volume fraction] 33.8 % Low 40.0-52.0 [facility] Comment on above: Performed By: #### L [id number], [id number] ####Nurse Research: CLARE HUGGINS ([id number])[facility]PITAL[facility]ALBUQU[facility] CLINICAlysa ([facility])[address] Hemoglobin (Bld) [Mass/Vol] 9.8 g/dL Low 13.0-18.0 [facility] Comment on above: Performed By: #### L [id number], [id number] ####Nurse Research: CLARE HUGGINS ([phone])[facility]ITALP[facility]eto [facility]BAL[facility]QU[facility]ICN ([facility])[address] MCH (RBC) [Entitic mass] 28.7 pg Normal 26.0-34.0 [facility] Comment on above: Performed By: #### L [id number], [id number] ####Nurse Research: CLARE HUGGINS ([phone])[facility] ([facility])[address] MCHC 29.0 % Low 30.5-36.0 [facility] Comment on above: Performed By: #### L [id number], [id number] ####Nurse Research: CLARE HUGGINS ([phone])[facility] ([facility])[address] MCV (RBC) [Entitic vol] 99.1 fL High 77.0-99.0 [facility] Comment on above: Performed By: #### L [id number], [id number] ####Nurse Research: CLARE HUGGINS ([phone])[facility]ITAL[facility] [place] ([facility])[address] Platelet mean volume (Bld) [Entitic vol] 10.8 fL Normal 9.0-12.7 [facility] Comment on above: Performed By: #### L [id number], [id number] ####Nurse Research: CLARE HUGGINS ([phone])[facility] ([facility])[address] [place] [address] [place] Platelets (Bld) [#/Vol] 194 10*3/uL Normal 140-440 [facility] Comment on above: Performed By: #### L [id number], [id number] ####Nurse Research: CLARE HUGGINS ([phone])[facility] RBC (Bld) [#/Vol] 3.41 10*6/uL Low 4.40-5.90 [facility] Comment on above: Performed By: #### L [id number], [id number] ####Nurse Research: CLARE HUGGINS ([phone])[facility] ([facility])[address] [place] [address] WBC (Bld) [#/Vol] 11.4 10*3/uL High 3.6-10.7 [facility] Comment on above: Performed By: #### L [id number], [id number] ####Nurse Research: CLARE HUGGINS ([phone])[facility] ([facility])[address] [place] [address] Calcium.ionized [Moles/Vol]O rdered By: John Dean on 05-31-2024 Calcium.ionized (Bld) [Moles/Vol] 4.1 mg/dL Low 4.30 - 5.20 mg/dL [facility] Interpretation and review of laboratory results Abnormal [facility] PH, IONIZED CALCIUM 7.37 7.31 - 7.46 [facility] HEPATIC FUNCTION PANELon Albumin [Mass/Vol] 2.8 g/dL Low 3.4-4.8 [facility] Comment on above: Performed By: #### L AB113, LAB15, [id number], LAB20, [id number] ####Nurse Research: CLARE HUGGINS ([phone])[facility] ([facility])[address] [place] [address] ALP [Catalytic activity/Vol] 69 U/L Normal 40-150 [facility] Comment on above: Performed By: #### L AB113, LAB15, [id number], LAB20, [id number] ####Nurse Research: CLARE HUGGINS ([phone])[facility] ([facility])[address] ALT [Catalytic activity/Vol] 16 U/L Normal <40 [facility] Comment on above: Performed By: #### L AB113, LAB15, [id number], LAB20, [id number] ####Nurse Research: CLARE HUGGINS ([phone])[facility] ([facility])[address] AST [Catalytic activity/Vol] 22 U/L Normal <34 [facility] Comment on above: Performed By: #### L AB113, LAB15, [id number], LAB20, [id number] ####Nurse Research: CLARE HUGGINS ([phone])[facility] ([facility])[address] [place] [address] Bilirubin [Mass/Vol] 0.2 mg/dL Normal <1.2 [facility] Comment on above: Performed By: #### L AB113, LAB15, [id number], LAB20, [id number] ####Nurse Research: CLARE HUGGINS ([phone])[facility] ([facility])[address] [place] [address] Bilirubin.indirect [Mass/Vol] 0.1 mg/dL Normal <0.5 [facility] Comment on above: Performed By: #### L AB113, LAB15, [id number], LAB20, [id number] ####Nurse Research: CLARE HUGGINS ([phone])[facility] [place] [address] Protein [Mass/Vol] 5.4 g/dL Low 6.4-8.3 [facility] Comment on above: Result Comment: Seru m protein values are higher than plasma values. Samples from recumbent persons are lower by up to 0.5 g/dL as compared to ambulatory persons. After 60 years values are lower by up to 0.2 g/dL. Performed By: #### L AB113, LAB15, [id number], LAB20, [id number] ####Nurse Research: CLARE HUGGINS ([phone])[facility] ([facility])[address] [place] [address] Hepatic function 2000 panelo n 05-31-2024 Albumin [Mass/Vol] 2.8 g/dL Low 3.4 - 4.8 g/dL [facility] ALP [Catalytic activity/Vol] 69 U/L 40 - 150 U/L [facility] ALT [Catalytic activity/Vol] 16 U/L NINF - 40 U/L [facility] AST [Catalytic activity/Vol] 22 U/L NINF - 34 U/L [facility] Bilirubin [Mass/Vol] 0.2 mg/dL [facility] mg/dL [facility] Bilirubin.conjugated [Mass/Vol] 0.1 mg/dL [facility] - 0.5 mg/dL [facility] Protein [Mass/Vol] 5.4 g/dL Low 6.4 - 8.3 g/dL [facility] Comment on above: Serum protein values are higher than plasma values. Samples from recumbent persons are lower by up to 0.5 g/dL as compared to ambulatory persons. After 60 years values are lower by up to 0.2 g/dL. Laboratory - Chemistry and C hemistry - challengeon 05-31-2024 Glucose [Mass/Vol] 274 mg/dL High 70 - 100 mg/dL [facility] Glucose [Mass/Vol] 271 mg/dL High 70 - 100 mg/dL [facility] Procalcitonin [Mass/Vol] 2.1 ng/mL High FABIAN F - 0.07 ng/mL [facility] Glucose [Mass/Vol] 235 mg/dL High 70 - 100 mg/dL [facility] Glucose [Mass/Vol] 167 mg/dL High 70 - 100 mg/dL [facility] Glucose [Mass/Vol] 233 mg/dL High 70 - 100 mg/dL [facility] Magnesium [Mass/Vol] 2.6 mg/dL 1.6 - 2 .6 mg/dL [facility] Laboratory - Hematology and Cell countson 05-31-2024 Band form neutrophils (Bld) [#/Vol] 0.3 10*3/uL High NINF - 0.0 10*3/uL [facility] Band form neutrophils/100 WBC (Bld) 3 % High NINF - 0 % [facility] [place] cells LM Ql (Bld) Slight Abnormal (none) [facility] Lymphocytes (Bld) [#/Vol] 0.6 10*3/uL Low 1.0 - 4.3 10*3/uL [facility] Lymphocytes/100 WBC (Bld) 5 % Low 15 - 45 % [facility] Monocytes (Bld) [#/Vol] 0.5 10*3/uL 0.0 - 0.9 10*3/uL [facility] Monocytes/100 WBC (Bld) 4 % Low 5 - 13 % [facility] Neutrophils (Bld) [#/Vol] 10.4 10*3/uL High 1.8 - 7.5 10*3/uL [facility] Ovalocytes LM Ql (Bld) Moderate Abnormal (none) [facility] Poikilocytosis LM Ql (Bld) Moderate Abnormal (none) [facility] RBC morphology finding Nom (Bld) abnormal [facility] Segmented neutrophils/100 WBC (Bld) 88 % High 38 - 82 % [facility] MAGNESIUMon 05-31-2024 Magnesium [Mass/Vol] 2.6 mg/dL Normal 1.6-2.6 [facility] Comment on above: Result Comment: TAVO eHrnandez COMMENTS:Higher values can be expected in females during menses. Performed By: #### L AB113, LAB15, [id number], LAB20, [id number] ####Nurse Research: CLARE HUGGINS ([phone])[facility] MANUAL DIFFERENTIAL (CELLAVI JARROD)on 05-31-2024 BAND NEUTROPHILS TOTAL PER COUNTED LEUKOCYTES BY MANUAL COUNT 3 Normal [facility] Comment on above: Performed By: #### L [id number], [id number] ####Nurse Research: CLARE HUGGINS ([phone])[facility] BANDS (10*3/UL) IN BLOOD-CELLAVISION 0.3 10*3/uL High <=0.0 [facility] Comment on above: Performed By: #### L [id number], [id number] ####Nurse Research: CLARE MERCERKRISTYN ([phone])[facility] ([facility])[address] BASOPHILS TOTAL PER COUNTED LEUKOCYTES BY MANUAL COUNT [facility] Comment on above: Performed By: #### L [id number], [id number] ####Nurse Research: CLARE MERCERKRISTYN ([phone])[facility] [place] ([facility])[address] BLASTS TOTAL PER COUNTED LEUKOCYTES BY MANUAL COUNT [facility] Comment on above: Performed By: #### L [id number], [id number] ####Nurse Research: CLARE WINTERVERN ([phone])[facility] [place] ([facility])[address] ELLA CELLS PRESENCE IN BLOOD BY LIGHT MICROSCOPY Slight Abnormal (none) [facility] Comment on above: Performed By: #### L [id number], [id number] ####Nurse Research: CLARE MERCERKRISTYN ([phone])[facility] [place] ([facility])[address] EOSINOPHILS TOTAL PER COUNTED LEUKOCYTES BY MANUAL COUNT [facility] Comment on above: Performed By: #### L [id number], [id number] ####Nurse Research: CLARE MERCERKRISTYN ([phone])[facility] [place] ([facility])[address] [place] [address] [place] LYMPHOCYTES (10*3/UL) IN BLOOD-CELLAVISION 0.6 10*3/uL Low 1.0-4.3 [facility] Comment on above: Performed By: #### L [id number], [id number] ####Nurse Research: CLARE HUGGINS ([phone])[facility] [place] ([facility])[address] LYMPHOCYTES TOTAL PER COUNTED LEUKOCYTES BY MANUAL COUNT [address] [place] [address] Comment on above: Performed By: #### L [id number], [id number] ####Nurse Research: CLARE HUGGINS ([phone])[facility] ([facility])[address] [place] [address] [place] LYMPHOCYTES/100 LEUKOCYTES IN BLOOD-CELLAVISION 5 % Low 15-45 [facility] Comment on above: Performed By: #### L [id number], [id number] ####Nurse Research: CLAER BELLOCER ([phone])[facility] ([facility])[address] [place] [address] [place] METAMYELOCYTES TOTAL PER COUNTED LEUKOCYTES BY MANUAL COUNT Normal [facility] Comment on above: Performed By: #### L [id number], [id number] ####Nurse Research: CLARE BELLOCER ([id number])[facility] [place] ([facility])[address] [place] [address] [place] MONOCYTES (10*3/UL) IN BLOOD-CELLAVISION 0.5 10*3/uL Normal 0.0-0.9 [facility] Comment on above: Performed By: #### L [id number], [id number] ####Nurse Research: CLARE HUGGINS ([phone])[facility] [place] ([facility])[address] [place] [address] [place] MONOCYTES TOTAL PER COUNTED LEUKOCYTES BY MANUAL COUNT 4 Normal [facility] Comment on above: Performed By: #### L [id number], [id number] ####Nurse Research: CLARE HUGGINS ([id number])[facility] [place] ([facility])[address] [place] [address] [place] MONOCYTES/100 LEUKOCYTES IN BLOOD-ROGER 4 % Low 5-13 [facility] Comment on above: Performed By: #### L [id number], [id number] ####Nurse Research: CLARE HUGGINS ([id number])[facility] [place] ([facility])[address] [place] [address] [place] MYELOCYTES COUNTED BY MANUAL COUNT Normal [facility] Comment on above: Performed By: #### L [id number], [id number] ####Nurse Research: CLARE HUGGINS ([phone])[facility] ([facility])[address] [place] [address] [place] NEUTROPHILS BAND FORM/100 LEUKOCYTES IN BLOOD-CELLAVISI 3 % High <=0 [facility] Comment on above: Performed By: #### L [id number], [id number] ####Nurse Research: CLARE HUGGINS ([id number])[facility] ([facility])[address] [place] [address] [place] NEUTROPHILS TOTAL PER COUNTED LEUKOCYTES BY MANUAL COUNT 88 Normal [facility] Comment on above: Performed By: #### L [id number], [id number] ####Nurse Research: CLARE HUGGISN ([id number])[facility] [place] ([facility])[address] [place] [address] [place] OVALOCYTES PRESENCE IN BLOOD BY LIGHT MICROSCOPY Moderate Abnormal (none) [facility] Comment on above: Performed By: #### L [id number], [id number] ####Nurse Research: CLARE HUGGINS ([phone])[facility] [place] ([facility])[address] [place] [address] [place] POIKILOCYTOSIS (PRESENCE) IN BLOOD BY LIGHT MICROSCOPY Moderate Abnormal (none) [facility] Comment on above: Performed By: #### L [id number], [id number] ####Nurse Research: CLARE HUGGINS ([phone])[facility] [place] ([facility])[address] [place] [address] [place] PROMYELOCYTES TOTAL PER COUNTED LEUKOCYTES BY MANUAL COUNT Normal [facility] Comment on above: Performed By: #### L [id number], [id number] ####Nurse Research: CLARE HUGGINS ([id number])[facility] [place] ([facility])[address] [place] [address] [place] RBC MORPHOLOGY IN BLOOD abnormal Normal [facility] Comment on above: Performed By: #### L [id number], [id number] ####Nurse Research: CLARE HUGGINS ([phone])[facility] [place] ([facility])[address] SEGMENTED NEUTROPHILS (10*3/UL) IN BLOOD-CELLAVISION 10.4 10*3/uL High 1.8-7.5 [facility] Comment on above: Performed By: #### L [id number], [id number] ####Nurse Research: CLARE HUGGINS ([phone])[facility] [place] ([facility])[address] SEGMENTED NEUTROPHILS/100 LEUKOCYTES-CE 88 % High 38-82 [facility] Comment on above: Performed By: #### L [id number], [id number] ####Nurse Research: CLARE HUGGINS ([id number])[facility] [place] ([facility])[address] UNCLASSIFIED CELLS TOTAL PER COUNTED LEUKOCYTES BY MANUAL COUNT Normal [facility] Comment on above: Performed By: #### L [id number], [id number] ####Nurse Research: CLARE HUGGINS ([phone])[facility] GERALDALBUQUERQUE INDIAN DENTAL CLINICAlysa ([facility])[address] [place] [address] VARIANT LYMPHOCYTES TOTAL PER COUNTED LEUKOCYTES BY MANUAL COUNT Normal [facility] Comment on above: Performed By: #### L [id number], [id number] ####Nurse Research: CLARE HUGGINS ([phone])[facility] ([facility])[address] [place] [address] Magnesium [Mass/Vol]on 05-31 Interpretation and review of laboratory results Normal [facility] Higher values can be expected in females during menses. [facility] No Panel Informationon 05-31 Interpretation and review of laboratory results Abnormal [facility] Performed by: [facility], [address] [place] [address] CLIA ID: [id number] [facility] Interpretation and review of laboratory results Abnormal [facility] Performed by: [facility], [address] [address] CLIA ID: [id number] [facility] Interpretation and review of laboratory results Abnormal [facility] Performed by: [facility], [address] [facility] [address] CLIA ID: [id number] [facility] Interpretation and review of laboratory results Abnormal [facility] Performed by: [facility], [address] [facility] [address] CLIA ID: [id number] [facility] Interpretation and review of laboratory results Abnormal [facility] Performed by: [facility], [address] [facility] [address] CLIA ID: [id number] [facility] Atypical Lymphocytes Manual [facility] Bands Manual 3 [facility] Basophils Manual [facility] Blasts Manual [facility] Eosinophils Manual [facility] Interpretation and review of laboratory results Abnormal [facility] Lymphocytes Manual 5 [facility] Metamyelocytes Manual [facility] Monocytes Manual 4 [facility] Myelocytes Manual [facility]alth Neutrophils Manual 88 [facility] Promyelocytes Manual [facility] Unclassified Cells, Manual [facility] Interpretation and review of laboratory results Abnormal [facility] PHOSPHORUSon 05-31-2024 Phosphate [Mass/Vol] 5.2 mg/dL High 2.3-4.7 [facility] Comment on above: Performed By: #### L AB113, LAB15, [id number], LAB20, [id number] ####Nurse Research: CLARE HUGGINS ([phone])[facility])[address] [place] [address] PROCALCITONIN TESTon 025 PROCALCITONIN 2.10 ng/mL High <0.07 [facility] Comment on above: Result Comment: ORDE R COMMENTS:PCT <0.50 = Low risk of severe sepsis and/or septic shock.PCT >2.00 = High risk of severe sepsis and/or septic shock. Performed By: #### L AB113, LAB15, [id number], LAB20, [id number] ####Nurse Research: CLARE HUGGINS ([phone])[facility] [place] [address] [place] Phosphate [Moles/Vol]on 02-1 4-2025 Phosphate [Mass/Vol] 5.2 mg/dL High 2.3 - 4 .7 mg/dL [facility] Procalcitonin [Mass/Vol]on 0 05-31-2024 Interpretation and review of laboratory results Abnormal [facility] PCT <0.50 = Low risk of severe sepsis and/or septic shock. PCT >2.00 = High risk of severe sepsis and/or septic shock. [facility] Progress Noteon 05-31-2024 Progress Note Normal [facility] Progress Note Normal [facility] XR Chest Single viewon 05-31 1. Lines/Tubes/Devices/Franco dware: Leads noted. Please confirm position and function of any catheters or attempted catheters clinically. 2. Lungs: Persistent infiltrate densities. No interval major volume loss.. Consider follow-up with PA and lateral chest for persistent symptoms. 3. Pleura: No significant effusion. No significant pneumothorax. 4. Heart and mediastinum: No convincing acute process. 5. Upper abdomen: No acute process seen. 6. Thorax:No acute bony process Report Dictated on Electronically Signed By: William Huston MD Electronically Signed Date/Time: 05/31/2024 5:51 AM EST [facility] EMERGENCY DEPARTMENT RADIOLOGY SYSTEM Patient Name: JAMES REYES : 1955 Exam Date/Time: 05/31/2024 03:40 Procedure: XR CHEST 1 VIEW Ordering Provider: WILLIS RYAN Reason For Exam: respir failure EXAM TYPE: RADIOLOGIC EXAMINATION, CHEST, SINGLE VIEW FRONTAL (CXR SINGLE VIEW) EXAM DATE AND TIME: 05/31/2024 3:40 AM EST INDICATION: Respiratory distress COMPARISON: 05/30/2024 TECHNIQUE: A single portable frontal view of the thorax was obtained and reviewed. Special views: None. [facility] William Huston MD - 05/31/2024 Patient Name: JAMES REYES : 1955 Exam Date/Time: 05/31/2024 03:40 Procedure: XR CHEST 1 VIEW Ordering Provider: WILLIS RYAN Reason For Exam: respir failure EXAM TYPE: RADIOLOGIC EXAMINATION, CHEST, SINGLE VIEW FRONTAL (CXR SINGLE VIEW) EXAM DATE AND TIME: 05/31/2024 3:40 AM EST INDICATION: Respiratory distress COMPARISON: 05/30/2024 TECHNIQUE: A single portable frontal view of the thorax was obtained and reviewed. Special views: None. IMPRESSION: 1. Lines/Tubes/Devices/Franco dware: Leads noted. Please confirm position and function of any catheters or attempted catheters clinically. 2. Lungs: Persistent infiltrate densities. No interval major volume loss.. Consider follow-up with PA and lateral chest for persistent symptoms. 3. Pleura: No significant effusion. No significant pneumothorax. 4. Heart and mediastinum: No convincing acute process. 5. Upper abdomen: No acute process seen. 6. Thorax:No acute bony process Report Dictated on Electronically Signed By: William Huston MD Electronically Signed Date/Time: 05/31/2024 5:51 AM EST [facility] Radiology Study observation (narrative) [facility] XR Chest Single viewOrdered By: William Huston on 05-31-2024 [facility] Work Phone: BASIC METABOLIC PANELon 05-18 Anion gap [Moles/Vol] 10 mmol/L Normal 3-13 [facility] Comment on above: Performed By: #### L AB106, LAB15, [id number] ####Nurse Research: CLARE HUGGINS ([phone])[facility] ([facility])[address] [place] [address] Calcium [Mass/Vol] 7.8 mg/dL Low 8.8-10.0 [facility] Comment on above: Performed By: #### L AB106, LAB15, [id number] ####Nurse Research: CLARE HUGGINS ([phone])[facility] ([facility])[address] Chloride [Moles/Vol] 109 mmol/L High 98-107 [facility] Comment on above: Performed By: #### L AB106, LAB15, [id number] ####Nurse Research: CLARE [phone])[facility] ([facility])[address] [place] [address] [place] CO2 [Moles/Vol] 20 mmol/L Low 23-31 [facility] Comment on above: Performed By: #### Joyce AB106, LAB15, [id number] ####Nurse Research: CLARE HUGGINS ([phone])[facility] (HLAB)[address] Creatinine [Mass/Vol] 1.28 mg/dL High 0.72-1.25 [facility] Comment on above: Performed By: #### Joyce MCCORMICK, LAB15, [id number] ####Nurse Research: CLARE HUGGINS ([phone])[facility] ([facility])[address] GLOMERULAR FILTRATION RATE ML/MIN/1.73 SQ M.PREDICTED 61.3 mL/min/1.73m*2 Normal >60.0 [facility] Comment on above: Result Comment: Calc ulation based on the Chronic Kidney Disease Epidemiology Collaboration (CKD-EPI) equation refit without adjustment for race Performed By: #### Joyce MCCORMICK, LAB15, [id number] ####Nurse Research: CLARE HUGGINS ([phone])[facility] ([facility])[address] [place] [address] Glucose [Mass/Vol] 284 mg/dL High 82-115 [facility] Comment on above: Performed By: #### L AB106, LAB15, [id number] ####Nurse Research: CLARE HUGGINS ([id number])[facility] ([facility])[address] [place] [address] [place] Potassium [Moles/Vol] 4.8 mmol/L Normal 3.5-5.1 [facility] Comment on above: Result Comment: [facility] potassium values may be up to 0.5 mmol/L lower than serum values. Performed By: #### L AB106, LAB15, [id number] ####Nurse Research: CLARE HUGGINS ([phone])[facility] (SB[facility])[address] [place] [address] [place] Sodium [Moles/Vol] 139 mmol/L Normal 136-145 [facility] Comment on above: Performed By: #### L AB106, LAB15, [id number] ####Nurse Research: CLARE HUGGINS ([phone])[facility] (SBHLAB)[address] [place] [address] [place] Urea nitrogen [Mass/Vol] 44 mg/dL High 9-23 [facility] Comment on above: Performed By: #### L AB106, LAB15, [id number] ####Nurse Research: CLARE HUGGINS ([phone])[facility] (SB[facility])[address] [place] [address] BLOOD CULTUREon 05-30-2024 Bacteria identified Cx Nom (Bld) Normal [facility] Comment on above: Performed By: #### L [id number] ####Nurse Research: SWATI RATLIFF ([phone])[facility] (SAC[facility])[address] [place] [address] Bacteria identified Cx Nom (Bld) Normal [facility] Comment on above: Performed By: #### L [id number] ####Nurse Research: SWATI RATLIFF ([phone])[facility] ([facility])[address] [place] [address] BLOOD GAS ARTERIALon 025 Base excess Calc (Bld) [Moles/Vol] -4.0000 mmol/L Low -3.0-3.0 [facility] Comment on above: Performed By: #### L AB76 ####Nurse Research: CLARE HUGGINS ([phone])[facility] ([facility])[address] [place] [address] [place] CO2 [Moles/Vol] 23.1 mmol/L Normal 22.0-28.0 [facility] Comment on above: Performed By: #### L AB76 ####Nurse Research: CLARE HUGGINS ([phone])[facility] [place] ([facility])[address] HCO3 (Bld) [Moles/Vol] 21.8 mmol/L Normal 21.0-27.0 [facility] Comment on above: Performed By: #### L AB76 ####Nurse Research: CLARE HUGGINS ([phone])[facility] [place] ([facility])[address] Hemoglobin (Bld) [Mass/Vol] 11.5 g/dL Low Screen only [facility] Comment on above: Performed By: #### L AB76 ####Nurse Research: CLARE HUGGINS ([id number])[facility] ([facility])[address] OXYGEN SATURATION (%) IN ARTERIAL BLOOD 95.9 % Low 97.0-99.0 [facility] Comment on above: Performed By: #### L AB76 ####Nurse Research: CLARE HUGGINS ([phone])[facility] ([facility])[address] PCO2 ARTERIAL 42.5 mm Hg Normal 35.0-48.0 [facility] Comment on above: Performed By: #### L AB76 ####Nurse Research: CLARE HUGGINS ([phone])[facility] ([facility])[address] PH ARTERIAL 7.327 Low 7.350-7.450 [facility] Comment on above: Performed By: #### L AB76 ####Nurse Research: CLARE HUGGINS ([phone])[facility] [place] ([facility])[address] PO2 ARTERIAL 85.7 mm Hg Normal 83.0-108.0 [facility] Comment on above: Performed By: #### L AB76 ####Nurse Research: CLARE HUGGINS ([phone])[facility] ([facility])[address] SOURCE OF OXYGEN Bi-PAP Normal [facility] Comment on above: Result Comment: 50% Performed By: #### L AB76 ####Nurse Research: CLARE HUGGINS ([phone])[facility] [place] ([facility])[address] Base excess Calc (Bld) [Moles/Vol] -3.0000 mmol/L Normal -3.0-3.0 [facility] Comment on above: Performed By: #### L AB76 ####Nurse Research: CLARE HUGGINS ([phone])[facility] [place] ([facility])[address] CO2 [Moles/Vol] 25.4 mmol/L Normal 22.0-28.0 [facility] Comment on above: Performed By: #### L AB76 ####Nurse Research: CLARE HUGGINS ([phone])[facility] [place] ([facility])[address] HCO3 (Bld) [Moles/Vol] 23.8 mmol/L Normal 21.0-27.0 [facility] Comment on above: Performed By: #### L AB76 ####Nurse Research: CLARE HUGGINS ([phone])[facility] [place] ([facility])[address] Hemoglobin (Bld) [Mass/Vol] 11.3 g/dL Low Screen only [facility] Comment on above: Performed By: #### L AB76 ####Nurse Research: CLARE HUGGINS ([id number])[facility] [place] ([facility])[address] OXYGEN SATURATION (%) IN ARTERIAL BLOOD 89.5 % Low 97.0-99.0 [facility] Comment on above: Performed By: #### L AB76 ####Nurse Research: CLARE HUGGINS ([phone])[facility] ([facility])[address] PCO2 ARTERIAL 50.7 mm Hg High 35.0-48.0 [facility] Comment on above: Performed By: #### L AB76 ####Nurse Research: CLARE HUGGINS ([phone])[facility] [place] (SB[facility])[address] PH ARTERIAL 7.290 Low 7.350-7.450 [facility] Comment on above: Performed By: #### L AB76 ####Nurse Research: CLARE HUGGINS ([phone])[facility] [place] ([facility])[address] PO2 ARTERIAL 64.1 mm Hg Low 83.0-108.0 [facility] Comment on above: Performed By: #### L AB76 ####Nurse Research: CLARE HUGGINS ([phone])[facility]ITAL[facility] [place] SOURCE OF OXYGEN Heated High Flow Normal [facility] Comment on above: Performed By: #### L AB76 ####Nurse Research: CLARE HUGGINS ([phone])[facility] ([facility])[address] Basic metabolic 1998 panelon 05-30-2024 Anion gap [Moles/Vol] 10 mmol/L 3 - 13 mmol/L [facility] Calcium [Mass/Vol] 7.8 mg/dL Low 8.8 - 10. 0 mg/dL [facility] Chloride [Moles/Vol] 109 mmol/L High 98 - 10 7 mmol/L [facility] CO2 [Moles/Vol] 20 mmol/L Low 23 - 31 mmol/L [facility] Creatinine [Mass/Vol] 1.28 mg/dL High 0.72 - 1.25 mg/dL [facility] GFR/1.73 sq M.predicted (S/P/Bld) [Vol rate/Area] 61.3 mL/min - PINF [facility] Comment on above: Calculation based on the Chronic Kidney Disease Epidemiology Collaboration (CKD-EPI) equation refit without adjustment for race Glucose [Mass/Vol] 284 mg/dL High 82 - 115 mg/dL [facility] Interpretation and review of laboratory results Abnormal [facility] Potassium [Moles/Vol] 4.8 mmol/L 3.5 - 5.1 mmol/L [facility] Comment on above: Plasma potassium adriana ues may be up to 0.5 mmol/L lower than serum values. Sodium [Moles/Vol] 139 mmol/L 136 - 145 mmol/L [facility] Urea nitrogen [Mass/Vol] 44 mg/dL High 9 - 23 mg/dL [facility] CBC W Auto Differential pane l (Bld)Ordered By: Nayely Saab on 05-30-2024 Erythrocyte distribution width (RBC) [Ratio] 15.5 % High 11.5 - 15.0 % [facility] Hematocrit (Bld) [Volume fraction] 34.7 % Low 40.0 - 52.0 % [facility] Hemoglobin (Bld) [Mass/Vol] 10.6 g/dL Low 13.0 - 18.0 g/dL [facility] Interpretation and review of laboratory results Abnormal [facility] MCH (RBC) [Entitic mass] 29 pg 26. 0 - 34.0 pg [facility] MCHC (RBC) [Mass/Vol] 30.5 % 30.5 - 36.0 % [facility] MCV (RBC) [Entitic vol] 94.8 fL 77.0 - 99.0 fL [facility] Platelet mean volume (Bld) [Entitic vol] 10.6 fL 9.0 - 12.7 fL [facility] Platelets (Bld) [#/Vol] 190 10*3/uL 140 - 440 10*3/uL [facility] RBC (Bld) [#/Vol] 3.66 10*6/uL Low 4.40 - 5.9 0 10*6/uL [facility] WBC (Bld) [#/Vol] 14.1 10*3/uL High 3.6 - 10.7 10*3/uL [facility] CBC WITH AUTO DIFFERENTIALon 05-30-2024 Erythrocyte distribution width (RBC) [Ratio] 15.5 % High 11.5-15.0 [facility] System [facility] Comment on above: Performed By: #### L [id number], [id number] ####Nurse Research: CLARE HUGGINS ([phone])[facility] ([facility])[address] Hematocrit (Bld) [Volume fraction] 34.7 % Low 40.0-52.0 [facility] Comment on above: Performed By: #### L [id number], [id number] ####Nurse Research: CLARE HUGIGNS ([phone])[facility] ([facility])[address] Hemoglobin (Bld) [Mass/Vol] 10.6 g/dL Low 13.0-18.0 [facility] Comment on above: Performed By: #### L [id number], [id number] ####Nurse Research: CLARE HUGGINS ([phone])[facility] (SB[facility])[address] [place] [address] MCH (RBC) [Entitic mass] 29.0 pg Normal 26.0-34.0 [facility] Comment on above: Performed By: #### L [id number], [id number] ####Nurse Research: CLARE HUGGINS ([phone])[facility] ([facility])[address] [place] [address] MCHC 30.5 % Normal 30.5-36.0 [facility] Comment on above: Performed By: #### L [id number], [id number] ####Nurse Research: CLARE HUGGINS ([phone])[facility]ITALP[facility] (SBHLAB)[address] [place] [address] MCV (RBC) [Entitic vol] 94.8 fL Normal 77.0-99.0 S [facility] Comment on above: Performed By: #### L [id number], [id number] ####Nurse Research: CLARE HGUGINS ([phone])[facility] (SB[facility])[address] Platelet mean volume (Bld) [Entitic vol] 10.6 fL Normal 9.0-12.7 [facility] Comment on above: Performed By: #### L [id number], [id number] ####Nurse Research: CLARE HUGGINS ([phone])[facility] [place] ([facility])[address] Platelets (Bld) [#/Vol] 190 10*3/uL Normal 140-440 [facility] Comment on above: Performed By: #### L [id number], [id number] ####Nurse Research: CLARE HUGGINS ([phone])[facility] ([facility])[address] RBC (Bld) [#/Vol] 3.66 10*6/uL Low 4.40-5.90 [facility] Comment on above: Performed By: #### L [id number], [id number] ####Nurse Research: CLARE HUGGINS ([phone])[facility] ([facility])[address] WBC (Bld) [#/Vol] 14.1 10*3/uL High 3.6-10.7 [facility] Comment on above: Performed By: #### L [id number], [id number] ####Nurse Research: CLARE HUGGINS ([phone])[facility] ([facility])[address] COMPLETE URINALYSISon 2024 BILIRUBIN, TOTAL PRESENCE IN URINE Negative Normal Negative [facility] Comment on above: Performed By: #### L [id number] ####Nurse Research: CLARE HUGGINS ([phone])[facility] ([facility])[address] Clarity (U) Turbid Abnormal Clear [facility] Comment on above: Performed By: #### L [id number] ####Nurse Research: CLARE HUGGINS ([phone])[facility] ([facility])[address] Color (U) Light Yellow Normal Lt. Yellow [facility] Comment on above: Performed By: #### L [id number] ####Nurse Research: CLARE HUGGINS ([phone])[facility] ([facility])[address] [place] [address] [place] GLUCOSE (MG/DL) IN URINE >1,000 Abnormal Nor mal (<70) [facility] Comment on above: Performed By: #### L [id number] ####Nurse Research: CLARE JOSELUIS ([phone])[facility] ([facility])[address] HEMOGLOBIN PRESENCE IN URINE Negative Normal Negative [facility] Comment on above: Performed By: #### L [id number] ####Nurse Research: CLARE JOSELUIS ([phone])[facility] ([facility])[address] Ketones Ql (U) Negative Normal Negative [facility] Comment on above: Performed By: #### L AB347 ####Nurse Research: CLARE WINTERVERN ([phone])[facility] ([facility])[address] LEUKOCYTE ESTERASE PRESENCE IN URINE BY TEST STRIP Negative Normal Negative [facility] Comment on above: Performed By: #### L [id number] ####Nurse Research: CLARE JOSELUIS ([phone])[facility] ([facility])[address] NITRITE PRESENCE IN URINE Negative Normal Negative [facility] Comment on above: Performed By: #### L [id number] ####Nurse Research: CLARE MERCERKRISTYN ([phone])[facility] ([facility])[address] [place] [address] [place] pH (U) 5.0 [pH] Normal 5.0-8.0 [facility] Comment on above: Performed By: #### L [id number] ####Nurse Research: CLARE MERCERKRISTYN ([phone])[facility] ([facility])[address] Protein (U) [Mass/Vol] Negative Normal Negative [facility] Comment on above: Performed By: #### L [id number] ####Nurse Research: CLARE HUGGINS ([phone])[facility] ([facility])[address] Specific gravity (U) [Rel density] 1.017 Normal 1.005-1.030 [facility] Comment on above: Performed By: #### L [id number] ####Nurse Research: CLARE HUGGINS ([phone])[facility] ([facility])[address] UROBILINOGEN (MG/DL) IN URINE Normal Normal Normal (0-1) [facility] Comment on above: Performed By: #### L [id number] ####Nurse Research: CLARE HUGGINS ([phone])[facility] ([facility])[address] [place] [address] COVID-19, Flu A/B, and RSV C omboon 05-30-2024 Interpretation and review of laboratory results Normal [facility] Consulton 05-30-2024 Consult Normal [facility] Consult Normal [facility] D-DIMER,QUANTITATIVEon 05-30 D-DIMER, INNOVANCE 0.58 mg/L High <0.50 [facility] Comment on above: Result Comment: TAVO Hernandez COMMENTS:Innovance D-Dimer values of <0.50 mg/L FEU can be used in combination with a pre-test probability model (e.g. Well's) to exclude pulmonary embolism (PE) disease, as well as an aid in the diagnosis of deep vein thrombosis (DVT). Performed By: #### L [id number] ####Nurse Research: CLARE HUGGINS ([phone])[facility] ([facility])[address] ECG 12-LEADon 05-30-2024 ECG 12-LEAD IMPRESSION: Sinus tachycardia Left anterior fascicular block Borderline low voltage, extremity leads Abnormal T, consider ischemia, lateral leads Electronically Signed On 05-30-2024 11:40:42 EST by Arsh Mar [facility] ED Nursing Noteon 05-30-2024 ED Nursing Note Report given to J[employer] Normal [facility] ED Nursing Note Normal [facility] ED Provider Noteon ED Provider Note Normal [facility] Fibrin D-dimer FEU (PPP) [Ma ss/Vol]on 05-30-2024 Interpretation and review of laboratory results Abnormal [facility] D-Dimer values of <0.50 mg/L FEU can be used in combination with a pre-test probability model (e.g. Well's) to exclude pulmonary embolism (PE) disease, as well as an aid in the diagnosis of deep vein thrombosis (DVT). [facility] HIGH SENSITIVITY TROPONIN, S ERIAL BASELINEon 05-30-2024 TROPONIN HS SERIAL BASELINE 13 ng/L Normal <=35 [facility] Comment on above: Result Comment: In i ndividuals presenting with symptoms > 2h, a baseline troponin <= 5 ng/L suggests acutecardiac injury is unlikely and further serial testing is generally not indicated. Performed By: #### L AB106, LAB15, [id number] ####Nurse Research: CLARE HUGGINS ([phone])[facility] ([facility])[address] [place] [address] HIGH SENSITIVITY TROPONIN, S ERIAL, SECOND TESTon 05-30-2024 2H TROPONIN HS (SERIAL 2ND TROPONIN) 17 ng/L Normal <=35 [facility] Comment on above: Result Comment: Risi ng or falling troponin delta between 2 ??? 15 ng/L as compared to baseline value requires a 3rd serial troponin Performed By: #### L [id number] ####Nurse Research: CLARE HUGGINS ([phone])[facility] ([facility])[address] HIGH SENSITIVITY TROPONIN, S ERIAL, THIRD TESTon 05-30-2024 4H TROPONIN HS (SERIAL 3RD TROPONIN) 21 ng/L Normal <=35 [facility] Comment on above: Result Comment: 4h t roponin (3rd troponin) samples collected between 1h 40 min and 2h and 20 min of the 2h troponin collection time can be utilized to interpret delta troponins as per [employer] algorithms. Samples collected outside this timeframe need to be interpreted clinically.Rising or falling troponin delta between 2 ??? 15 ng/L as compared to 2h troponin valuerequires further evaluation. Performed By: #### L [id number] ####Nurse Research: CLARE HUGGINS ([phone])[facility] ([facility])[address] [place] [address] LACTIC ACID WITH REFLEXon Lactate [Moles/Vol] 1.4 mmol/L Normal 0.5-2.2 [facility] Comment on above: Performed By: #### L [id number] ####Nurse Research: CLARE HUGGINS ([phone])[facility] (SBAB)[address] [place] [address] LEGIONELLA AND STREPTOCOCCUS URINE ANTIGENon 05-30-2024 LEGIONELLA AND STREPTOCOCCUS URINE ANTIGEN Normal [facility] Comment on above: Performed By: #### L [id number] ####Nurse Research: SWATI RATLIFF ([phone])[facility] ([facility])[address] [place] [address] Laboratory - Chemistry and C hemistry - challengeon 05-30-2024 Glucose [Mass/Vol] 309 mg/dL High 70 - 100 mg/dL [facility] Glucose [Mass/Vol] 287 mg/dL High 70 - 100 mg/dL [facility] Glucose [Mass/Vol] 247 mg/dL High 70 - 100 mg/dL [facility] Lactate [Moles/Vol] 1.4 mmol/L 0.5 - 2. 2 mmol/L [facility] Laboratory - Chemistry and C hemistry - challengeOrdered By: Kalani Moreno on 05-30-2024 Base excess Calc (Bld) [Moles/Vol] -4 mmol/L Low -3.0 - 3.0 mmol/L [facility] CO2 (Bld) [Partial pressure] 42.5 mm[Hg] [facility] CO2 [Moles/Vol] 23.1 mmol/L 22.0 - 28.0 mmol/L [facility] HCO3 (Bld) [Moles/Vol] 21.8 mmol/L 21.0 - 27.0 mmol/L [facility] Oxygen (Bld) [Partial pressure] 85.7 mm[Hg] [facility] pH (Bld) 7.327 [pH] Low 7.350 - 7.450 [facility] Laboratory - Chemistry and C hemistry - challengeOrdered By: Mayi Najera on 05-30-2024 Base excess Calc (Bld) [Moles/Vol] -3 mmol/L -3.0 - 3.0 mmol/L [facility] CO2 (Bld) [Partial pressure] 50.7 mm[Hg] High [facility] CO2 [Moles/Vol] 25.4 mmol/L 22.0 - 28.0 mmol/L [facility] HCO3 (Bld) [Moles/Vol] 23.8 mmol/L 21.0 - 27.0 mmol/L [facility] Oxygen (Bld) [Partial pressure] 64.1 mm[Hg] Low [facility] pH (Bld) 7.29 [pH] Low 7.350 - 7.450 [facility] Laboratory - Coagulationon 0 05-30-2024 Fibrin D-dimer FEU (PPP) [Mass/Vol] 0.58 mg/L High NINF - 0.50 mg/L [facility] Laboratory - Hematology and Cell countsOrdered By: Kalani Moreno on 05-30-2024 Hemoglobin (Bld) [Mass/Vol] 11.5 g/dL Low Screen only [facility] Laboratory - Hematology and Cell countsOrdered By: Mayi Najera on 05-30-2024 Hemoglobin (Bld) [Mass/Vol] 11.3 g/dL Low Screen only [facility] Laboratory - Microbiology an d Antimicrobial susceptibilityon 05-30-2024 FLUAV RNA JOAN+probe Ql (Resp) Not detected Not Detected [facility] FLUBV RNA JOAN+probe Ql (Resp) Not detected Not Detected [facility] RSV RNA JOAN+probe Ql (Resp) Not detected Not Detected [facility] SARS-CoV-2 (COVID-19) RNA JOAN+probe Ql (Resp) Not detected Not Detected [facility] SARS-CoV-2 (COVID-19) RNA JOAN+probe Ql (Unsp spec) Methodology: real-time, RT-PCR The SARS-CoV-2, Flu A/B, and RSV Combo assay is intended for in vitro diagnostic use under the FDA Emergency Use Authorization (EUA). This test has not been FDA cleared or approved. In compliance with this authorization, please visit www.fda.gov/media/44181 5/download or www.fda.gov/media/79349 6/download to access the applicable information sheets. [facility] MANUAL DIFFERENTIALon 2024 ANISOCYTOSIS PRESENCE IN BLOOD BY LIGHT MICROSCOPY Slight Abnormal (none) [facility] Comment on above: Performed By: #### L [id number], [id number] ####Nurse Research: CLARE HUGGINS ([phone])[facility] [place] ([facility])[address] BAND NEUTROPHILS TOTAL PER COUNTED LEUKOCYTES BY MANUAL COUNT 7 Normal [facility] Comment on above: Performed By: #### L [id number], [id number] ####Nurse Research: CLARE HUGGINS ([phone])[facility] [place] ([facility])[address] [place] [address] BANDS 1.0 10*3/uL High <=0.0 [facility] Comment on above: Performed By: #### L [id number], [id number] ####Nurse Research: CLARE HUGGINS ([phone])[facility] [place] ([facility])[address] CELLS COUNTED TOTAL (#) IN BLOOD 101 Normal [facility] Comment on above: Performed By: #### L [id number], [id number] ####Nurse Research: CLARE HUGGINS ([phone])[facility] [place] ([facility])[address] DIFFERENTIAL METHOD Manual differential performed Normal [facility] Comment on above: Performed By: #### L [id number], [id number] ####Nurse Research: CLARE HUGGINS ([phone])[facility] [place] ([facility])[address] LEUKOCYTE MORPHOLOGY FINDING IN BLOOD Normal Normal [facility] Comment on above: Performed By: #### L [id number], [id number] ####Nurse Research: CLARE HUGGINS ([phone])[facility] [place] ([facility])[address] [place] [address] [place] LEUKOCYTES (10*3/UL) NUCLEATED ERYTHROCYTE ADJUST 14.1 10*3/uL High 3.6-10.7 [facility] Comment on above: Performed By: #### L [id number], [id number] ####Nurse Research: CLARE HUGGINS ([phone])[facility] [place] ([facility])[address] [place] [address] [place] LYMPHOCYTES (10*3/UL) IN BLOOD BY MANUAL COUNT 0.3 10*3/uL Low 1.0-4.3 [place] [facility] Comment on above: Performed By: #### L [id number], [id number] ####Nurse Research: CLARE HUGGINS ([phone])[facility] [place] ([facility])[address] [place] [address] [place] LYMPHOCYTES TOTAL PER COUNTED LEUKOCYTES BY MANUAL COUNT 2 Normal [facility] Comment on above: Performed By: #### L [id number], [id number] ####Nurse Research: CLARE HUGGINS ([phone])[facility] [place] (SB[facility])[address] [place] [address] [place] LYMPHOCYTES/100 LEUKOCYTES IN BLOOD BY MANUAL COUNT 2 % Low 15-45 [facility] Comment on above: Performed By: #### L [id number], [id number] ####Nurse Research: CLARE HUGGINS ([phone])[facility] [place] ([facility])[address] [place] [address] [place] MONOCYTES (10*3/UL) IN BLOOD BY MANUAL COUNT 1.1 10*3/uL High 0.0-0.9 [facility] Comment on above: Performed By: #### L [id number], [id number] ####Nurse Research: CLARE HUGGINS ([phone])[facility] [place] ([facility])[address] [place] [address] [place] MONOCYTES TOTAL PER COUNTED LEUKOCYTES BY MANUAL COUNT 8 Normal [facility] Comment on above: Performed By: #### L [id number], [id number] ####Nurse Research: CLARE HUGGINS ([phone])[facility] [place] (SBHLAB)[address] [place] [address] [place] MONOCYTES/100 LEUKOCYTES IN BLOOD BY MANUAL COUNT 8 % Normal 5-13 [facility] Comment on above: Performed By: #### L [id number], [id number] ####Nurse Research: CLARE HUGGINS ([phone])[facility] [place] ([facility])[address] [place] [address] [place] NEUTROPHILS (SEGS+BANDS) (10*3/UL) BY MANUAL COUNT 12.7 10*3/uL High 1.8-7.0 [facility] Comment on above: Performed By: #### L [id number], [id number] ####Nurse Research: CLARE HUGGINS ([phone])[facility] [place] ([facility])[address] [place] [address] [place] NEUTROPHILS BAND FORM/100 LEUKOCYTES IN BLOOD BY MANUAL COUNT 7 % High <=0 [facility] Comment on above: Performed By: #### L [id number], [id number] ####Nurse Research: CLARE HUGGINS ([phone])[facility] [place] ([facility])[address] [place] [address] [place] NEUTROPHILS TOTAL PER COUNTED LEUKOCYTES BY MANUAL COUNT 84 Normal [facility] Comment on above: Performed By: #### L [id number], [id number] ####Nurse Research: CLARE HUGGINS ([phone])[facility] [place] ([facility])[address] OVALOCYTES PRESENCE IN BLOOD BY LIGHT MICROSCOPY Slight Abnormal (none) [facility] Comment on above: Performed By: #### L [id number], [id number] ####Nurse Research: CLARE HUGGINS ([phone])[facility] [place] ([facility])[address] [place] [address] [place] PLATELET MORPHOLOGY IN BLOOD Normal Normal [facility] Comment on above: Performed By: #### L [id number], [id number] ####Nurse Research: CLARE HUGGINS ([phone])[facility] [place] (SBHLAB)[address] POLYCHROMASIA IN BLOOD BY LIGHT MICROSCOPY Slight Abnormal (none) [facility] Comment on above: Performed By: #### L [id number], [id number] ####Nurse Research: CLARE HUGGINS ([phone])[facility] (SBHLAB)[address] [place] [address] [place] SEGEMENTED NEUTROPHILS/100 LEUKOCYTES BY MANUAL COUNT 83 % High 38-82 [facility] Comment on above: Performed By: #### L [id number], [id number] ####Nurse Research: CLARE HUGGINS ([phone])[facility] (SBHLAB)[address] SEGMENTED NEUTROPHILS (10*3/UL)IN BLOOD BY MANUAL COUNT 12.7 10*3/uL High 1.8-7.5 [facility] Comment on above: Performed By: #### L [id number], [id number] ####Nurse Research: CLARE HUGGINS ([phone])[facility] [place] (SBHLAB)[address] [place] [address] [place] MRSA BY PCRon 05-30-2024 MRSA BY PCR Normal [facility] Comment on above: Performed By: #### L [id number] ####Nurse Research: SWATI RATLIFF ([phone])[facility] ([facility] [place] [address] MRSA DNA JOAN+probe Ql (Nose) on 05-30-2024 Interpretation and review of laboratory results Normal [facility] mecA gene Not detected Not Detected [facility] Staphylococcus aureus Not detected Not Detected [facility] No Staphylococcus aureus detected. Negative nasal MRSA PCR has a high negative predictive value for MRSA pneumonia. Consider stopping Vancomycin if no other clinical indication. Contact Antimicrobial Stewardship for further recommendations. Staphylococcus aureus nasal screen by real-time PCR. This test was modified and its performance characteristics determined by [facility]. The U. S. Food and Drug Administration has not approved or cleared this test; however, FDA clearance or approval is not currently required for clinical use. The results are not intended to be used as the sole means for clinical diagnosis or patient management decisions. [facility] Manual differential performe d Ql (Bld)Ordered By: Paula Armenta on 05-30-2024 Anisocytosis Ql (Bld) Slight Abnormal (none) [facility] Band form neutrophils (Bld) [#/Vol] 1 10*3/uL High NINF - 0.0 10*3/uL [facility] Band form neutrophils/100 WBC (Bld) 7 % High NINF - 0 % [facility] Bands Manual 7 [facility] Cells Counted Total (Bld) [#] 101 {cells} [facility] Differential Method Manual differential performed [facility] Interpretation and review of laboratory results Abnormal [facility] Leukocyte morphology finding Nom (Bld) Normal [facility] Lymphocytes (Bld) [#/Vol] 0.3 10*3/uL Low 1.0 - 4.3 10*3/uL [facility] Lymphocytes Manual 2 [facility] Lymphocytes/100 WBC (Bld) 2 % Low 15 - 45 % [facility] Monocytes (Bld) [#/Vol] 1.1 10*3/uL High 0.0 - 0.9 10*3/uL [facility] Monocytes Manual 8 [facility] alth Monocytes/100 WBC (Bld) 8 % 5 - 13 % [facility] Neutrophils (Bld) [#/Vol] 12.7 10*3/uL High 1.8 - 7.5 10*3/uL [facility] Neutrophils Manual 84 [facility] Ovalocytes LM Ql (Bld) Slight Abnormal (none) [facility] Platelet morphology finding Nom (Bld) Normal [facility] Polychromasia LM Ql (Bld) Slight Abnormal (none) [facility] Segmented neutrophils/100 WBC (Bld) 83 % High 38 - 82 % [facility] WBC corrected for nucl RBC (Bld) [#/Vol] 14.1 10*3/uL High 3.6 - 10.7 10*3/uL [facility] NT PRO BNPon 05-30-2024 Natriuretic peptide B (Bld) [Mass/Vol] 533 pg/mL High <125 [facility] Comment on above: Performed By: #### L [id number], [id number], [id number] ####Nurse Research: CLARE HUGGINS ([phone])[facility] [place] (SBHLAB)[address] [place] [address] [place] Natriuretic peptide B [Mass/ Vol]on 05-30-2024 Interpretation and review of laboratory results Abnormal [facility] Natriuretic peptide B (Bld) [Mass/Vol] 533 pg/mL High NINF - 125 pg/mL [facility] No Panel Informationon 05-30 Interpretation and review of laboratory results Abnormal [facility] by: [facility], [address] [place] [address] CLIA ID: [id number] [facility] Interpretation and review of laboratory results Abnormal [facility] Performed by: [facility], [address] [place] [address] CLIA ID: [id number] [facility] 4h Troponin HS (Serial 3rd Troponin) 21 ng/L NINF - 35 ng/L [facility] Comment on above: 4h troponin (3rd tro ponin) samples collected between 1h 40 min and 2h and 20 min of the 2h troponin collection time can be utilized to interpret delta troponins as per [facility] algorithms. Samples collected outside this timeframe need to be interpreted clinically. Rising or falling troponin delta between 2 15 ng/L as compared to 2h troponin value requires further evaluation. Interpretation and review of laboratory results Normal [facility] Interpretation and review of laboratory results Abnormal [facility] Performed by: [facility], [address] [place] [address] CLIA ID: [id number] [facility] P [place] 37 degrees [facility] [place] Interval 195 ms [facility] QRS [place] -60 degrees [facility] QRSD [facility]val [facility]val 358 ms [facility] QTC Interval 473 ms [facility] T Wave [place] 129 degrees [facility] Sinus tachycardia Left anterior fascicular block Borderline low voltage, extremity leads Abnormal T, consider ischemia, lateral leads Electronically Signed On 05-30-2024 11:40:42 EST by Arsh Larsen MD - 05/30/2024 IMPRESSION: Sinus tachycardia Left anterior fascicular block Borderline low voltage, extremity leads Abnormal T, consider ischemia, lateral leads Electronically Signed On 05-30-2024 11:40:42 EST by Arsh Mar [facility] 2h Troponin HS (Serial 2nd Troponin) 17 ng/L NINF - 35 ng/L [facility] Comment on above: Rising or falling tr oponin delta between 2 15 ng/L as compared to baseline value requires a 3rd serial troponin Interpretation and review of laboratory results Normal [facility] Interpretation and review of laboratory results Normal [facility] Troponin HS Serial Baseline 13 ng/L NINF - 35 ng/L [facility] Comment on above: In individuals prese nting with symptoms > 2h, a baseline troponin <= 5 ng/L suggests acute cardiac injury is unlikely and further serial testing is generally not indicated. [facility] Interpretation and review of laboratory results Normal [facility] No Panel InformationOrdered By: Rylie Salvador on 05-30-2024 Interpretation and review of laboratory results Normal [facility] Legionella pneumophila Ag Not detected Not Detected [facility] Streptococcus pneumoniae Ag Not detected Not Detected [facility] Methodology: Lateral flow enzyme immunoassay This assay is approved for detection of antigens to Streptococcus pneumoniae and Legionella pneumophila serogroup 1; however, other L. pneumophila serogroups may also be detected. [facility] No Panel InformationOrdered By: Kalani Moreno on 05-30-2024 Interpretation and review of laboratory results Abnormal [facility] Source Of Oxygen Bi-PAP [facility] Comment on above: 50% [facility] No Panel InformationOrdered By: Mayi Najera on 05-30-2024 Interpretation and review of laboratory results Abnormal [facility] Source Of Oxygen Heated High Flow [facility] Progress Noteon 05-30-2024 Progress Note Vancomycin therapy h as been discontinued by Dr. Haydee Willis on 30may2024. Thank you for the consult. Pharmacy signing off for vancomycin dosing. Henok Chang, JessicaD, Date: 05/30/24 Time: 6:10 PM Normal [facility] RESPIRATORY PATHOGENS PANEL BY PCRon 05-30-2024 RESPIRATORY PATHOGENS PANEL BY PCR Normal [facility] Comment on above: Performed By: #### L [id number] ####Nurse Research: SWATI RATLIFF ([phone])[facility] ([address] Respiratory pathogens DNA an d RNA panel JOAN+non-probe (Nph)on 05-30-2024 Adenovirus Not detected Not Detected [facility] B. pertussis DNA JOAN+probe Ql (Unsp spec) Not detected Not Detected [facility] Bordetella parapertussis Not detected Not Detected [facility] Chlamydia pneumoniae Not detected Not Detected [facility] Coronavirus 229E Not detected Not Detected [facility] Coronavirus HKU1 Not detected Not Detected [facility] Coronavirus NL63 Not detected Not Detected [facility] Coronavirus OC43 Not detected Not Detected [facility] FLUAV RNA JOAN+non-probe Ql (Nph) Not detected Not Detected [facility] FLUBV RNA JOAN+non-probe Ql (Nph) Not detected Not Detected [facility] Human Metapneumovirus Not detected Not Detected [facility] Human Rhinovirus/Enterovirus Not detected Not Detected [facility] Interpretation and review of laboratory results Normal [facility] Mycoplasma pneumoniae Not detected Not Detected [facility] Parainfluenza 1 Not detected Not Detected [facility] Parainfluenza 2 Not detected Not Detected [facility] Parainfluenza 3 Not detected Not Detected [facility] Parainfluenza 4 Not detected Not Detected [facility] Respiratory Syncytial Virus Not detected Not Detected [facility] SARS-CoV-2 (COVID-19) RNA JOAN+non-probe Ql (Nph) Not detected Not Detected [facility] Methodology: Multipl ex PCR [facility] SARS-COV-2, FLU A/B, AND RSV COMBOon 05-30-2024 SARS-CoV-2 (COVID-19) RNA JOAN+probe Ql (Unsp spec) Normal [facility] System [facility] Comment on above: Performed By: #### L [id number] ####Nurse Research: CLARE HUGGINS ([phone])[facility] ([facility])[address] [place] [address] Urinalysis complete panel (U )Ordered By: Papo Christopher on 05-30-2024 Bilirubin Ql (U) Negative Negative mg/dL [facility] Clarity (U) Turbid Abnormal Clear [facility] Color (U) Light Yellow Lt. Yellow [facility] Glucose Ql (U) >1,000 Abnormal Normal (<70) mg/dL [facility] Hemoglobin Ql (U) Negative Negative mg/dL [facility] Interpretation and review of laboratory results Abnormal [facility] Ketones (U) [Mass/Vol] Negative Negat abdulkadir mg/dL [facility] Leukocyte esterase Test strip Ql (U) Negative Negative Poornima/uL [facility] Nitrite Ql (U) Negative Negative [facility] th pH (U) 5.0 [pH] 5.0 - 8.0 pH [facility] Protein (U) [Mass/Vol] Negative Negat abdulkadir mg/dL [facility] Specific gravity (U) [Rel density] 1.017 1.005 - 1.030 [facility] Urobilinogen (U) [Mass/Vol] Normal Normal (0-1) mg/dL [facility] Vital signson 05-30-2024 Heart rate 105 /min bpm [facility] XR Chest Single viewon 05-30 FINDINGS AND IMPRESSION: SUPPORT DEVICES: EKG leads OSSEOUS STRUCTURES: Unremarkable. HEART AND MEDIASTINUM: The cardiomediastinal silhouette appears unchanged from the prior exam. LUNGS AND PLEURA: There is pulmonary venous congestion and interstitial edema. No consolidation. Suspected nodular density overlying the right lateral midlung. Recommend either nonemergent CT for further evaluation or short-term radiographic follow-up. No sizable pleural effusion. Report Dictated on Electronically Signed By: Jimbo Voss MD Electronically Signed Date/Time: 05/30/2024 9:11 AM [facility] [employer] SYSTEM Patient Name: JAMES REYES : 1955 Exam Date/Time: 05/30/2024 09:03 Procedure: XR CHEST 1 VIEW Ordering Provider: MAR GREGORY Reason For Exam: Dyspnea hypoxia CHEST CLINICAL INDICATION: Hypoxia TECHNIQUE: AP portable chest COMPARISON: 11/30/2023 [facility] Jimbo Voss MD - 05/30/2024 Patient Name: JAMES REYES : 1955 Exam Date/Time: 05/30/2024 09:03 Procedure: XR CHEST 1 VIEW Ordering Provider: MAR GREGORY Reason For Exam: Dyspnea hypoxia CHEST CLINICAL INDICATION: Hypoxia TECHNIQUE: AP portable chest COMPARISON: 11/30/2023 IMPRESSION: FINDINGS AND IMPRESSION: SUPPORT DEVICES: EKG leads OSSEOUS STRUCTURES: Unremarkable. HEART AND MEDIASTINUM: The cardiomediastinal silhouette appears unchanged from the prior exam. LUNGS AND PLEURA: There is pulmonary venous congestion and interstitial edema. No consolidation. Suspected nodular density overlying the right lateral midlung. Recommend either nonemergent CT for further evaluation or short-term radiographic follow-up. No sizable pleural effusion. Report Dictated on Electronically Signed By: Jimbo Voss MD Electronically Signed Date/Time: 05/30/2024 9:11 AM EST [facility] Study observation (narrative) [facility] XR Chest Single viewOrdered By: Jimbo Voss on 05-30-2024 [facility] Work Phone: US RETROPERITONEALon [phone] US RETROPERITONEAL Normal 3VR [facility] US Retroperitoneumon 025 No significant sonographic abnormality of the kidneys. Report Dictated on Electronically Signed By: Marshall He MD Electronically Signed Date/Time: 05/23/2024 4:33 PM EST [employer] SYSTEM Patient Name: [facility]B: 1955 [id number] Exam Date/Time: 05/22/2024 12:25 Procedure: US RETROPERITONEAL Ordering Provider: MARINO LAWRENCE Reason For Exam: HYDRONEPHROSIS CLINICAL INFORMATION: Recurrent urinary tract infections. Ultrasound kidneys: The examination is limited by poor penetration of sound secondary to body habitus. The kidneys are within normal limits in size and cortical echogenicity. The right measures 13.3 x 6.7 x 6.6 cm and the left 13.8 x 7 x 6.2 cm. No hydronephrosis, calculus or solid renal mass is seen on either side. There is a well distended urinary bladder without obvious sonographic abnormality. [facility] [employer] [facility] Marshall He MD - 05/23/2024 Patient Name: JAMES REYES : 1955 [id number] Exam Date/Time: 05/22/2024 12:25 Procedure: US RETROPERITONEAL Ordering Provider: MARINO LAWRENCE Reason For Exam: HYDRONEPHROSIS CLINICAL INFORMATION: Recurrent urinary tract infections. Ultrasound kidneys: The examination is limited by poor penetration of sound secondary to body habitus. The kidneys are within normal limits in size and cortical echogenicity. The right measures 13.3 x 6.7 x 6.6 cm and the left 13.8 x 7 x 6.2 cm. No hydronephrosis, calculus or solid renal mass is seen on either side. There is a well distended urinary bladder without obvious sonographic abnormality. IMPRESSION: No significant sonographic abnormality of the kidneys. Report Dictated on Electronically Signed By: Marshall He MD Electronically Signed Date/Time: 05/23/2024 4:33 PM EST [facility] US RetroperitoneumOrdered By : Marshall He on 05-23-2024 [facility] Work Phone: US Retroperitoneumon [phone] Radiology Study observation (narrative) [facility] alth Diagnostic total prostate sp ecific antigen (PSA) measurementOrdered By: Chelle Troncoso on 05-14-2024 Prostate Specific Antigen Total 0.07 ng/mL 0.0-4.0 [facility] Comment on above: This test was perfor med using the TPSA assay method for the[facility] chemistry system. Values obtained with differentassay methods cannot be used interchangably.When changing PSA assays in the course of monitoring apatient, additional sequential testing should be carriedout to confirm baseline values. AMB POC URINALYSIS DIP STICK AUTO W/O MICROon 05-13-2024 Bilirubin, UA Negative [facility] h Blood, UA Negative [facility] Glucose, UA 500 [facility] Ketones, UA (mg/dL) Negative Negative mg/dL [facility] Leukocytes, UA Negative [facility] Nitrite, UA Negative [facility] pH, UA 5.5 [facility] Protein, UA Negative [facility] Spec Grav, UA 1.015 [facility] Urob[facility]ogen, UA 0.2 [facility] alth [facility] Progress Noteon 05-13-2024 Progress Note Normal [facility] Progress Note PVR: 122 mL Normal [facility] Bilirubin directOrdered By: Chelle Troncoso on 04-01-2024 Bilirubin.direct [Mass/Vol] 0.08 mg/dL 0.00-0.30 [facility] Bilirubin, totalOrdered By: Chelle Troncoso on 04-01-2024 Bilirubin [Mass/Vol] 0.40 mg/dL 0.20-1.00 [facility] Comment on above: For patients on eltr ombopag therapy, use of Dimension [place] TBIL is not recommended. Blood urea nitrogen (BUN)/cr eatinine ratioOrdered By: Chelle Troncoso on 04-01-2024 Urea nitrogen/Creatinine [Mass ratio] 18.6 mg/mg 10-20 [facility] Carbon dioxide measurementOr dered By: Chelle Troncoso on 04-01-2024 CO2 [Moles/Vol] 24.0 mmol/L 21.0-32.0 [facility] Chloride measurementOrdered By: Chelle Troncoso on 04-01-2024 Chloride [Moles/Vol] 111 mmol/L High 98-107 [facility] Erythrocyte distribution wid th (RBC) [Ratio]Ordered By: Chelle Troncoso on 04-01-2024 Erythrocyte distribution width (RBC) [Entitic vol] 50.4 fL High 35.1-43.9 [facility] Erythrocyte distribution wid th ratioOrdered By: Chelle Troncoso on 04-01-2024 Erythrocyte distribution width (RBC) [Ratio] 14.2 % 11.6-14.6 [facility] Estimated glomerular filtrat ion rate (GFR) AmericanOrdered By: Chelle Troncoso on 04-01-2024 Estimated GFR (MDRD) Amer 79 mL/min >60 [facility] Comment on above: GFR Calc Glomerular filtration rate ( GFR) estimationOrdered By: Chelle Troncoso on 04-01-2024 Estimated GFR (MDRD) Non-Af Amer 65 mL/min >60 [facility] Comment on above: Non- GFR Calc Glucose measurementOrdered B y: Chelle Troncoso on 04-01-2024 Glucose [Mass/Vol] 205 mg/dL High 74-106 [facility] Comment on above: Glucose result great er than or equal to 200 mg/dLsuggests DIABETES MELLITUS per A.D.A. criteria. Hematocrit Auto (Bld) [Volum e fraction]Ordered By: Chelle Troncoso on 04-01-2024 Hematocrit (Bld) [Volume fraction] 34.2 % Low 40-54 [facility] Hemoglobin A1c percentageOrd ered By: Chelle Troncoso on 04-01-2024 HbA1c (Bld) [Mass fraction] 8.2 % High 3.8-5.6 [facility] Comment on above: Normal < 5.7 % Predi abetic 5.7 - 6.4 % Diabetic >or= 6.5 % Please note range changes. Hemoglobin measurementOrdere d By: Chelle Troncoso on 04-01-2024 Hemoglobin (Bld) [Mass/Vol] 10.4 g/dL Low 13.0-16.5 [facility] High density lipoprotein (HD L) measurementOrdered By: Chelle Troncoso on 04-01-2024 Cholesterol in HDL [Mass/Vol] 44 mg/dL >40 [facility] Comment on above: The drugs N-Acetylcy steine and Metamizole may falsely depress this assay. Reference Range HDL <40 mg/dL Low HDL Cholesterol HDL >or= 60 mg/dL High HDL Cholesterol Laboratory - Chemistry and C hemistry - challengeOrdered By: Chelle Troncoso on 04-01-2024 AST [Catalytic activity/Vol] 8 U/L Low 15-37 [facility] Low density lipoprotein (LDL ) cholesterol measurementOrdered By: Chelle Troncoso on 04-01-2024 Cholesterol in LDL [Mass/Vol] 29 mg/dL 0-130 [facility] MCV (mean corpuscular volume ) determinationOrdered By: Chelle Troncoso on 04-01-2024 MCV (RBC) [Entitic vol] 95.8 fL High 80-94 [facility] Mean corpuscular hemoglobin (MCH) determinationOrdered By: Chelle Troncoso on 04-01-2024 MCH (RBC) [Entitic mass] 29.1 pg 27.0-32.0 [facility] Mean corpuscular hemoglobin concentration (MCHC) determinationOrdered By: Chelle Troncoso on 04-01-2024 MCHC (RBC) [Mass/Vol] 30.4 g/dL Low 32-36 [facility] Mean platelet volume determi nationOrdered By: Chelle Troncoso on 04-01-2024 Platelet mean volume (Bld) [Entitic vol] 10.1 fL 6.2-12.0 [facility] Platelet countOrdered By: Magdalena Troncoso on 04-01-2024 Platelets (Bld) [#/Vol] 282 10*3/uL 150-450 [facility] Potassium measurementOrdered By: Chelle Troncoso on 04-01-2024 Potassium [Moles/Vol] 4.4 mmol/L 3.5-5.1 [facility] RBC Auto (Bld) [#/Vol]Ordere d By: Chelle Troncoso on 04-01-2024 RBC (Bld) [#/Vol] 3.57 10*6/uL Low 4.6-6.2 [facility] Serum anion gap measurementO rdered By: Chelle Troncoso on 04-01-2024 Anion gap [Moles/Vol] 5 mmol/L 5-15 [facility] Serum globulin measurementOr dered By: Chelle Troncoso on 04-01-2024 Globulin (S) [Mass/Vol] 3.0 g/dL 2.2-4.2 [facility] Serum or plasma alanine weller otransferase (ALT) measurementOrdered By: Chelle Troncoso on 04-01-2024 ALT [Catalytic activity/Vol] 15 U/L Low 16-61 [facility] Serum or plasma albumin william urement (mass/volume)Ordered By: Chelle Troncoso on 04-01-2024 Albumin [Mass/Vol] 2.8 g/dL Low 3.2-5.0 [facility] Serum or plasma alkaline maritza sphatase measurementOrdered By: Chelle Troncoso on 04-01-2024 ALP [Catalytic activity/Vol] 85 U/L 45-117 [facility] Serum or plasma calcium william urement (mass/volume)Ordered By: Chelle Troncoso on 04-01-2024 Calcium [Mass/Vol] 8.6 mg/dL 8.5-10.1 [facility] Serum or plasma cholesterol measurement (mass/volume)Ordered By: Chelle Troncoso on 04-01-2024 Cholesterol [Mass/Vol] 92 mg/dL <200 [facility] Comment on above: <200 mg/dL Desirable 200-240 mg/dL Borderline >240 mg/dL High Risk Serum or plasma creatinine m easurement (mass/volume)Ordered By: Chelle Troncoso on 04-01-2024 Creatinine [Mass/Vol] 1.18 mg/dL 0.70-1.30 [facility] Comment on above: The validity of the calculated GFR & GFRAA in patients over 70 years has not been determined. Clinical correlation is essential. Serum or plasma urea nitroge n measurement (mass/volume)Ordered By: Chelle Troncoso on 04-01-2024 Urea nitrogen [Mass/Vol] 22 mg/dL High 7-18 [facility] Sodium levelOrdered By: Lyle Troncoso on 04-01-2024 Sodium [Moles/Vol] 140 mmol/L 136-145 [facility] TSH QnOrdered By: Chelle roman on 04-01-2024 Thyroid Stimulating Hormone (TSH) 2.010 uIU/mL 0.358-3.740 [facility] Total proteinOrdered By: Costa Troncoso on 04-01-2024 Protein [Mass/Vol] 5.8 g/dL Low 6.4-8.2 [facility] Triglycerides measurementOrd ered By: Chelle Troncoso on 04-01-2024 Triglyceride [Mass/Vol] 97 mg/dL <199 [facility] Comment on above: The drugs N-Acetylcy steine and Metamizole may falsely depress this assay.Serum Triglycerides Reference Interval Normal <150 mg/dL Borderline high 150 - 199 mg/dL High 200 - 499 mg/dL Very High > or = 500 mg/dL Very low density lipoprotein (VLDL) cholesterol measurementOrdered By: Chelle Troncoso on 04-01-2024 VLDL Cholesterol 19 mg/dL 5-40 [facility] White blood cell (WBC) count Ordered By: Chelle Troncoso on 04-01-2024 WBC (Bld) [#/Vol] 6.3 10*3/uL 4.4-11.0 [facility] Blood urea nitrogen (BUN)/cr eatinine ratioOrdered By: Chelle Troncoso on 03-26-2024 Urea nitrogen/Creatinine [Mass ratio] 21.0 mg/mg High 10-20 [facility] Carbon dioxide measurementOr dered By: Chelle Troncoso on 03-26-2024 CO2 [Moles/Vol] 25.0 mmol/L 21.0-32.0 [facility] Chloride measurementOrdered By: Chelle Troncoso on 03-26-2024 Chloride [Moles/Vol] 109 mmol/L High 98-107 [facility] Erythrocyte distribution wid th (RBC) [Ratio]Ordered By: Chelle Troncoso on 03-26-2024 Erythrocyte distribution width (RBC) [Entitic vol] 51.4 fL High 35.1-43.9 [facility] Erythrocyte distribution wid th ratioOrdered By: Chelle Troncoso on 03-26-2024 Erythrocyte distribution width (RBC) [Ratio] 14.4 % 11.6-14.6 [facility] Estimated glomerular filtrat ion rate (GFR) AmericanOrdered By: Chelle Troncoso on 03-26-2024 Estimated GFR (MDRD) Amer 78 mL/min >60 [facility] Comment on above: GFR Calc Glomerular filtration rate ( GFR) estimationOrdered By: Chelle Troncoso on 03-26-2024 Estimated GFR (MDRD) Non-Af Amer 65 mL/min >60 [facility] Comment on above: Non- GFR Calc Glucose measurementOrdered B y: Chelle Troncoso on 03-26-2024 Glucose [Mass/Vol] 255 mg/dL High 74-106 [facility] Comment on above: Glucose result great er than or equal to 200 mg/dLsuggests DIABETES MELLITUS per A.D.A. criteria. Hematocrit Auto (Bld) [Volum e fraction]Ordered By: Chelle Troncoso on 03-26-2024 Hematocrit (Bld) [Volume fraction] 35.5 % Low 40-54 [facility] Hemoglobin measurementOrdere d By: Chelle Troncoso on 03-26-2024 Hemoglobin (Bld) [Mass/Vol] 10.7 g/dL Low 13.0-16.5 [facility] MCV (mean corpuscular volume ) determinationOrdered By: Chelle Troncoso on 03-26-2024 MCV (RBC) [Entitic vol] 97.0 fL High 80-94 [facility] Mean corpuscular hemoglobin (MCH) determinationOrdered By: Chelle Troncoso on 03-26-2024 MCH (RBC) [Entitic mass] 29.2 pg 27.0-32.0 [facility] Mean corpuscular hemoglobin concentration (MCHC) determinationOrdered By: Chelle Troncoso on 03-26-2024 MCHC (RBC) [Mass/Vol] 30.1 g/dL Low 32-36 [facility] Mean platelet volume determi nationOrdered By: Chelle Troncoso on 03-26-2024 Platelet mean volume (Bld) [Entitic vol] 9.9 fL 6.2-12.0 [facility] Platelet countOrdered By: Magdalena Troncoso on 03-26-2024 Platelets (Bld) [#/Vol] 266 10*3/uL 150-450 [facility] Potassium measurementOrdered By: Chelle Troncoso on 03-26-2024 Potassium [Moles/Vol] 4.4 mmol/L 3.5-5.1 [facility] RBC Auto (Bld) [#/Vol]Ordere d By: Chelle Troncoso on 03-26-2024 RBC (Bld) [#/Vol] 3.66 10*6/uL Low 4.6-6.2 [facility] Serum anion gap measurementO rdered By: Chelle Troncoso on 03-26-2024 Anion gap [Moles/Vol] 7 mmol/L 5-15 [facility] Serum or plasma calcium william urement (mass/volume)Ordered By: Chelle Troncoso on 03-26-2024 Calcium [Mass/Vol] 9.2 mg/dL 8.5-10.1 [facility] Serum or plasma creatinine m easurement (mass/volume)Ordered By: Chelle Troncoso on 03-26-2024 Creatinine [Mass/Vol] 1.19 mg/dL 0.70-1.30 [facility] Comment on above: The validity of the calculated GFR & GFRAA in patients over 70 years has not been determined. Clinical correlation is essential. Serum or plasma urea nitroge n measurement (mass/volume)Ordered By: Chelle Troncoso on 03-26-2024 Urea nitrogen [Mass/Vol] 25 mg/dL High 7-18 [facility] Sodium levelOrdered By: Lyle Troncoso on 03-26-2024 Sodium [Moles/Vol] 140 mmol/L 136-145 [facility] White blood cell (WBC) count Ordered By: Chelle Troncoso on 03-26-2024 WBC (Bld) [#/Vol] 11.2 10*3/uL High 4[facility]4-11.0 [facility] 36 Normal [facility] 36 Normal [facility] 36 Aydee from [email or web address] calling pt has had a 23# weight gain in 1 week. Call [phone] ask for the [address] nurse. Normal [facility] 37on 03-08-2024 37 Normal [facility] BASIC METABOLIC PANELon 02-16 Anion gap [Moles/Vol] 11 mmol/L Normal 3-13 [facility] Comment on above: Performed By: #### L [id number], [id number] ####Nurse Research: SWATI RATLIFF ([id number])[facility] ([facility])[address] [place] [address] Calcium [Mass/Vol] 9.1 mg/dL Normal 8.4-10.4 [facility] Comment on above: Performed By: #### L [id number], LAB15 ####Nurse Research: SWATI RATLIFF ([id number])[facility] ([facility])[address] [place] [address] [place] Chloride [Moles/Vol] 105 mmol/L Normal 98-107 [facility] Comment on above: Performed By: #### L [id number], LAB15 ####Nurse Research: SWATI RATLIFF ([phone])[facility] ([facility])[address] [place] [address] [place] CO2 [Moles/Vol] 19 mmol/L Low 22-30 [facility] Comment on above: Performed By: #### L [id number], LAB15 ####Nurse Research: SWATI RATLIFF ([phone])[facility] ([facility])[address] [place] [address] Creatinine [Mass/Vol] 1.01 mg/dL Normal 0.66-1.25 [facility] Comment on above: Performed By: #### L [id number], LAB15 ####Nurse Research: SWATI RATLIFF ([id number])[facility] [place] [address] [place] GLOMERULAR FILTRATION RATE ML/MIN/1.73 SQ M.PREDICTED 81.5 mL/min/1.73m*2 Normal >60.0 [facility] Comment on above: Result Comment: Calc ulation based on the Chronic Kidney Disease Epidemiology Collaboration (CKD-EPI) equation refit without adjustment for race Performed By: #### L [id number], LAB15 ####Nurse Research: SWATI RATLIFF ([id number])[facility])[address] [place] [address] Glucose [Mass/Vol] 265 mg/dL High 70-100 [facility] Comment on above: Performed By: #### L [id number], LAB15 ####Nurse Research: SWATI RATLIFF ([id number])[facility])[address] [place] [address] [place] Potassium [Moles/Vol] 4.0 mmol/L Normal 3.5-5.1 [facility] Comment on above: Performed By: #### L [id number], LAB15 ####Nurse Research: SWATI RATLIFF ([id number])[facility])[address] [place] [address] [place] Sodium [Moles/Vol] 135 mmol/L Normal 135-145 [facility] Comment on above: Performed By: #### L [id number], LAB15 ####Nurse Research: SWATI RATLIFF ([phone])[facility] ([facility])[address] [place] [address] [place] Urea nitrogen [Mass/Vol] 22 mg/dL High 9-20 [facility] Comment on above: Performed By: #### L [id number], LAB15 ####Nurse Research: SWATI RATLIFF ([phone])[facility] ([facility])[address] [place], [place] [id number] [facility] Basic metabolic 1998 panelon 03-08-2024 Anion gap [Moles/Vol] 11 mmol/L 3 - 13 mmol/L [facility] Calcium [Mass/Vol] 9.1 mg/dL 8.4 - 10. 4 mg/dL [facility] Chloride [Moles/Vol] 105 mmol/L 98 - 10 7 mmol/L [facility] CO2 [Moles/Vol] 19 mmol/L Low 22 - 30 mmol/L [facility] Creatinine [Mass/Vol] 1.01 mg/dL 0.66 - 1.25 mg/dL [facility] GFR/1.73 sq M.predicted (S/P/Bld) [Vol rate/Area] 81.5 mL/min - PINF [facility] Comment on above: Calculation based on the Chronic Kidney Disease Epidemiology Collaboration (CKD-EPI) equation refit without adjustment for race Glucose [Mass/Vol] 265 mg/dL High 70 - 100 mg/dL [facility] Interpretation and review of laboratory results Abnormal [facility] Potassium [Moles/Vol] 4 mmol/L 3.5 - 5.1 mmol/L [facility] Sodium [Moles/Vol] 135 mmol/L 135 - 145 mmol/L [facility] Urea nitrogen [Mass/Vol] 22 mg/dL High 9 - 20 mg/dL [facility] CBC W Auto Differential pane l (Bld)Ordered By: Kelsi Amaro on 03-08-2024 Basophils (Bld) [#/Vol] 0 10*3/uL 0.0 - 0.2 10*3/uL [facility] Basophils/100 WBC (Bld) 0.5 % 0.0 - 2.0 % [facility] Eosinophils (Bld) [#/Vol] 0.2 10*3/uL 0.0 - 0.5 10*3/uL [facility] Eosinophils/100 WBC (Bld) 2.8 % 0.0 - 6.0 % [facility] Erythrocyte distribution width (RBC) [Ratio] 14.6 % 11.5 - 15.0 % [facility] Hematocrit (Bld) [Volume fraction] 36.8 % Low 40.0 - 52.0 % [facility] Hemoglobin (Bld) [Mass/Vol] 11.4 g/dL Low 13.0 - 18.0 g/dL [facility] Immature granulocytes (Bld) [#/Vol] 0 10*3/uL NINF - 0.1 10*3/uL [facility] Immature granulocytes/100 WBC (Bld) 0.3 % 0.0 - 2.0 % [facility] Interpretation and review of laboratory results Abnormal [facility] Lymphocytes (Bld) [#/Vol] 0.8 10*3/uL Low 1.0 - 4.3 10*3/uL [facility] Lymphocytes/100 WBC (Bld) 12.3 % Low 15.0 - 45.0 % [facility] MCH (RBC) [Entitic mass] 29.7 pg 26. 0 - 34.0 pg [facility] MCHC (RBC) [Mass/Vol] 31 % 30.5 - 36.0 % [facility] MCV (RBC) [Entitic vol] 95.8 fL 77.0 - 99.0 fL [facility] Monocytes (Bld) [#/Vol] 0.6 10*3/uL 0.0 - 0.9 10*3/uL [facility] Monocytes/100 WBC (Bld) 9.4 % 5.0 - 13.0 % [facility] Neutrophils (Bld) [#/Vol] 4.7 10*3/uL 1.8 - 7.5 10*3/uL [facility] Neutrophils/100 WBC (Bld) 74.7 % 38.0 - 82.0 % [facility] Nucleated RBC/100 WBC (Bld) [Ratio] 0 % [facility] Platelet mean volume (Bld) [Entitic vol] 10.2 fL 9.0 - 12.7 fL [facility] Platelets (Bld) [#/Vol] 248 10*3/uL 140 - 440 10*3/uL [facility] RBC (Bld) [#/Vol] 3.84 10*6/uL Low 4.40 - 5.9 0 10*6/uL [facility] WBC (Bld) [#/Vol] 6.4 10*3/uL 3.6 - 10.7 10*3/uL [facility] CBC WITH AUTO DIFFERENTIALon 03-08-2024 Basophils (Bld) [#/Vol] 0.0 10*3/uL Normal 0.0-0.2 [facility] Comment on above: Performed By: #### L [id number] ####Nurse Research: SWATI RATLIFF ([id number])[facility])[address] [place] [address] Basophils/100 WBC (Bld) 0.5 % Normal 0.0-2.0 [facility] Comment on above: Performed By: #### L [id number] ####Nurse Research: SWATI RATLIFF ([id number])[facility])[address] [place] [address] Eosinophils (Bld) [#/Vol] 0.2 10*3/uL Normal 0.0-0.5 [facility] Comment on above: Performed By: #### L [id number] ####Nurse Research: SWATI RATLIFF ([id number])[facility])[address] [place] [address] Eosinophils/100 WBC (Bld) 2.8 % Normal 0.0-6.0 [facility] Comment on above: Performed By: #### L [id number] ####Nurse Research: SWATI RATLIFF ([id number])[facility])[address] [place] [address] Erythrocyte distribution width (RBC) [Ratio] 14.6 % Normal 11.5-15.0 [facility] Comment on above: Performed By: #### L [id number] ####Nurse Research: SWATI RATLIFF ([id number])[facility])[address] [place] [address] Hematocrit (Bld) [Volume fraction] 36.8 % Low 40.0-52.0 [facility] Comment on above: Performed By: #### L [id number] ####Nurse Research: SWATI RATLIFF ([id number])[facility])[address] [place] [address] Hemoglobin (Bld) [Mass/Vol] 11.4 g/dL Low 13.0-18.0 [facility] Comment on above: Performed By: #### L [id number] ####Nurse Research: SWATI [id number])[facility])[address] [place] [address] IMMATURE GRANS % 0.3 % Normal 0.0-2.0 [facility] Comment on above: Performed By: #### L [id number] ####Nurse Research: SWATI RATLIFF ([id number])[facility])[address] [place] [address] IMMATURE GRANS ABSOLUTE 0.0 10*3/uL Normal <0.1 [facility] Comment on above: Performed By: #### L [id number] ####Nurse Research: SWATI RATLIFF ([id number])[facility])[address] [place] [address] Lymphocytes (Bld) [#/Vol] 0.8 10*3/uL Low 1.0-4.3 [facility] Comment on above: Performed By: #### L [id number] ####Nurse Research: SWATI RATLIFF ([id number])[facility])[address] [place] [address] Lymphocytes/100 WBC (Bld) 12.3 % Low 15.0-45.0 [facility] Comment on above: Performed By: #### L [id number] ####Nurse Research: SWATI RATLIFF ([id number])[facility])[address] [place] [address] MCH (RBC) [Entitic mass] 29.7 pg Normal 26.0-34.0 [facility] Comment on above: Performed By: #### L [id number] ####Nurse Research: SWATI RATLIFF ([phone])[facility])[address] [place] [address] MCHC 31.0 % Normal 30.5-36.0 [facility] Comment on above: Performed By: #### L [id number] ####Nurse Research: SWATI RATLIFF ([id number])[facility])[address] [place] [address] MCV (RBC) [Entitic vol] 95.8 fL Normal 77.0-99.0 [facility] Comment on above: Performed By: #### L [id number] ####Nurse Research: SWATI RATLIFF ([id number])[facility] ([facility])[address] [place] [address] Monocytes (Bld) [#/Vol] 0.6 10*3/uL Normal 0.0-0.9 [facility] Comment on above: Performed By: #### L [id number] ####Nurse Research: SWATI RATLIFF ([id number])[facility] ([facility])[address] [place] [address] Monocytes/100 WBC (Bld) 9.4 % Normal 5.0-13.0 [facility] Comment on above: Performed By: #### L [id number] ####Nurse Research: SWATI RATLIFF ([id number])[facility] ([facility])[address] [place] [address] NEUTROPHILS ABSOLUTE 4.7 10*3/uL Normal 1.8-7.5 [facility] Comment on above: Performed By: #### L [id number] ####Nurse Research: SWATI RATLIFF ([phone])[facility] ([facility])[address] [place] [address] Neutrophils/100 WBC (Bld) 74.7 % Normal 38.0-82.0 [facility] Comment on above: Performed By: #### L [id number] ####Nurse Research: SWATI RATLIFF ([id number])[facility] ([facility])[address] [place] [address] NRBC 0.0 /100 WBCs Normal 0.0-2.0 [facility] Comment on above: Performed By: #### L [id number] ####Nurse Research: SWATI RATLIFF ([phone])[facility])[address] [place] [address] Platelet mean volume (Bld) [Entitic vol] 10.2 fL Normal 9.0-12.7 [facility] Comment on above: Performed By: #### L [id number] ####Nurse Research: SWATI RATLIFF ([id number])[facility] ([facility])[address] [place] [address] Platelets (Bld) [#/Vol] 248 10*3/uL Normal 140-440 [facility] Comment on above: Performed By: #### L [id number] ####Nurse Research: SWATI RATLIFF ([phone])[facility] ([facility])[address] [place] [address] RBC (Bld) [#/Vol] 3.84 10*6/uL Low 4.40-5.90 [facility] Comment on above: Performed By: #### L [id number] ####Nurse Research: SWATI RATLIFF ([phone])[facility] ([facility])[address] [place] [address] WBC (Bld) [#/Vol] 6.4 10*3/uL Normal 3.6-10.7 [facility] Comment on above: Performed By: #### L [id number] ####Nurse Research: SWATI RATLIFF ([id number])[facility] ([facility])[address] [place] [address] Laboratory - Chemistry and C hemistry - challengeon 03-08-2024 Magnesium [Mass/Vol] 2.1 mg/dL 1.6 - 2 .3 mg/dL [facility] MAGNESIUMon 03-08-2024 Magnesium [Mass/Vol] 2.1 mg/dL Normal 1.6-2.3 [facility] Comment on above: Performed By: #### L [id number], LAB15 ####Nurse Research: SWATI RATLIFF ([phone])[facility] ([facility])[address] [place] [address] Magnesium [Mass/Vol]on 03-08 Interpretation and review of laboratory results Normal [facility] No Panel Informationon 03-08 [facility] Progress Noteon 03-08-2024 Progress Note Normal [facility] CARECOORDon 12-07-2023 [facility] Patient Choice Patient Name: JAMES REYES Date of : 1955 Normal [facility] CARECOWEISERon 12-05-2023 [facility]EISER Normal [facility] Discharge med list transmitted to [facility] via [facility] per TCC request. Normal [facility] Normal [facility] Normal [facility] Normal [facility] Normal [facility] CBC W Auto Differential pane l (Bld)on 12-05-2023 Basophils (Bld) [#/Vol] 0.0 10*3/uL 0.0 - 0.2 10*3/uL [facility] Basophils/100 WBC (Bld) 0.7 % 0.0 - 2.0 % [facility] Eosinophils (Bld) [#/Vol] 0.2 10*3/uL 0.0 - 0.5 10*3/uL [facility] Eosinophils/100 WBC (Bld) 4.3 % 0.0 - 6.0 % [facility] Erythrocyte distribution width (RBC) [Ratio] 15.3 % High 11.5 - 15.0 % [facility] Hematocrit (Bld) [Volume fraction] 33.6 % Low 40.0 - 52.0 % [facility] Hemoglobin (Bld) [Mass/Vol] 10.5 g/dL Low 13.0 - 18.0 g/dL [facility] Immature granulocytes (Bld) [#/Vol] 0.0 10*3/uL NINF - 0.1 10*3/uL [facility] Immature granulocytes/100 WBC (Bld) 0.2 % 0.0 - 2.0 % [facility] Interpretation and review of laboratory results Abnormal [facility] Lymphocytes (Bld) [#/Vol] 0.9 10*3/uL Low 1.0 - 4.3 10*3/uL [facility] Lymphocytes/100 WBC (Bld) 19.5 % 15.0 - 45.0 % [facility] MCH (RBC) [Entitic mass] 30.1 pg 26. 0 - 34.0 pg [facility] MCHC (RBC) [Mass/Vol] 31.3 % 30.5 - 36.0 % [facility] MCV (RBC) [Entitic vol] 96.3 fL 77.0 - 99.0 fL [facility] Monocytes (Bld) [#/Vol] 0.5 10*3/uL 0.0 - 0.9 10*3/uL [facility] Monocytes/100 WBC (Bld) 12.1 % 5.0 - 13.0 % [facility] Neutrophils (Bld) [#/Vol] 2.8 10*3/uL 1.8 - 7.5 10*3/uL [facility] Neutrophils/100 WBC (Bld) 63.2 % 38.0 - 82.0 % [facility] Nucleated RBC/100 WBC (Bld) [Ratio] 0.0 % [facility] Platelet mean volume (Bld) [Entitic vol] 10.4 fL 9.0 - 12.7 fL [facility] Platelets (Bld) [#/Vol] 161 10*3/uL 140 - 440 10*3/uL [facility] RBC (Bld) [#/Vol] 3.49 10*6/uL Low 4.40 - 5.9 0 10*6/uL [facility] WBC (Bld) [#/Vol] 4.5 10*3/uL 3.6 - 10.7 10*3/uL [facility] CBC WITH AUTO DIFFERENTIALon 12-05-2023 Basophils (Bld) [#/Vol] 0.0 10*3/uL Normal 0.0-0.2 [facility] Comment on above: Performed By: #### L [id number] ####Nurse Research: SWATI RATLIFF ([id number])[facility])[address] [place] [address] Basophils/100 WBC (Bld) 0.7 % Normal 0.0-2.0 [facility] Comment on above: Performed By: #### L [id number] ####Nurse Research: SWATI RATLIFF ([id number])[facility])[address] [place] [address] Eosinophils (Bld) [#/Vol] 0.2 10*3/uL Normal 0.0-0.5 [facility] Comment on above: Performed By: #### L [id number] ####Nurse Research: SWATI RATLIFF ([id number])[facility])[address] [place] [address] Eosinophils/100 WBC (Bld) 4.3 % Normal 0.0-6.0 [facility] Comment on above: Performed By: #### L [id number] ####Nurse Research: SWATI RATLIFF ([id number])[facility])[address] [place] [address] Erythrocyte distribution width (RBC) [Ratio] 15.3 % High 11.5-15.0 [facility] Comment on above: Performed By: #### L [id number] ####Nurse Research: SWATI RATLIFF ([id number])[address] Hematocrit (Bld) [Volume fraction] 33.6 % Low 40.0-52.0 [facility] Comment on above: Performed By: #### L [id number] ####Nurse Research: SWATI RATLIFF ([phone])[address] Hemoglobin (Bld) [Mass/Vol] 10.5 g/dL Low 13.0-18.0 [facility] Comment on above: Performed By: #### L [id number] ####Nurse Research: SWATI RATLIFF ([id number])[facility])[address] [place] [address] IMMATURE GRANS % 0.2 % Normal 0.0-2.0 [facility] Comment on above: Performed By: #### L [id number] ####Nurse Research: SWATI RATLIFF ([id number])[address] IMMATURE GRANS ABSOLUTE 0.0 10*3/uL Normal <0.1 [facility] Comment on above: Performed By: #### L [id number] ####Nurse Research: SWATI [id number])[facility])[address] [place] [address] Lymphocytes (Bld) [#/Vol] 0.9 10*3/uL Low 1.0-4.3 [facility] Comment on above: Performed By: #### L [id number] ####Nurse Research: SWATI RATLIFF ([id number])[facility])[address] [place] [address] Lymphocytes/100 WBC (Bld) 19.5 % Normal 15.0-45.0 [facility] Comment on above: Performed By: #### L [id number] ####Nurse Research: SWATI RATLIFF ([id number])[facility])[address] [place] [address] MCH (RBC) [Entitic mass] 30.1 pg Normal 26.0-34.0 [facility] [facility] Comment on above: Performed By: #### L [id number] ####Nurse Research: SWATI RATLIFF ([phone])[facility])[address] [place] [address] MCHC 31.3 % Normal 30.5-36.0 [facility] Comment on above: Performed By: #### L [id number] ####Nurse Research: SWATI RATLIFF ([id number])[facility])[address] [place] [address] MCV (RBC) [Entitic vol] 96.3 fL Normal 77.0-99.0 [facility] Comment on above: Performed By: #### L [id number] ####Nurse Research: SWATI RATLIFF ([phone])[facility])[address] [place] [address] Monocytes (Bld) [#/Vol] 0.5 10*3/uL Normal 0.0-0.9 [facility] Comment on above: Performed By: #### L [id number] ####Nurse Research: SWATI RATLIFF ([id number])[facility])[address] [place] [address] [place] Monocytes/100 WBC (Bld) 12.1 % Normal 5.0-13.0 [facility] Comment on above: Performed By: #### L [id number] ####Nurse Research: SWATI RATLIFF ([id number])[facility] ([facility])[address] [place] [address] NEUTROPHILS ABSOLUTE 2.8 10*3/uL Normal 1.8-7.5 [facility] Comment on above: Performed By: #### L [id number] ####Nurse Research: SWATI RATLIFF ([id number])[facility] ([facility])[address] [place] [address] Neutrophils/100 WBC (Bld) 63.2 % Normal 38.0-82.0 [facility] Comment on above: Performed By: #### L [id number] ####Nurse Research: SWATI RATLIFF ([phone])[facility] ([facility])[address] [place] [address] NRBC 0.0 /100 WBCs Normal 0.0-2.0 [facility] Comment on above: Performed By: #### L [id number] ####Nurse Research: SWATI RATLIFF ([id number])[facility] ([facility])[address] [place] [address] Platelet mean volume (Bld) [Entitic vol] 10.4 fL Normal 9.0-12.7 [facility] Comment on above: Performed By: #### L [id number] ####Nurse Research: SWATI RATLIFF ([phone])[facility] ([facility])[address] [place] [address] Platelets (Bld) [#/Vol] 161 10*3/uL Normal 140-440 [facility] Comment on above: Performed By: #### L [id number] ####Nurse Research: SWATI RATLIFF ([id number])[facility] ([facility])[address] [place] [address] RBC (Bld) [#/Vol] 3.49 10*6/uL Low 4.40-5.90 [facility] Comment on above: Performed By: #### L [id number] ####Nurse Research: SWATI RATLIFF ([phone])[facility])[address] [place] [address] WBC (Bld) [#/Vol] 4.5 10*3/uL Normal 3.6-10.7 [facility] Comment on above: Performed By: #### L [id number] ####Nurse Research: SWATI RATLIFF ([id number])[facility])[address] [place] [address] COMPREHENSIVE METABOLIC PANE Cricket 12-05-2023 Albumin [Mass/Vol] 3.0 g/dL Low 3.5-5.0 [facility] Comment on above: Performed By: #### L [id number] ####Nurse Research: SWATI RATLIFF ([id number])[facility])[address] [place] [address] ALP [Catalytic activity/Vol] 73 U/L Normal 38-126 [facility] Comment on above: Performed By: #### L [id number] ####Nurse Research: SWATI RATLIFF ([id number])[facility])[address] [place] [address] ALT [Catalytic activity/Vol] 11 U/L Normal 0-49 [facility] Comment on above: Performed By: #### L [id number] ####Nurse Research: SWATI RATLIFF ([id number])[facility])[address] [place] [address] Anion gap [Moles/Vol] 6 mmol/L Normal 3-13 [facility] Comment on above: Performed By: #### L [id number] ####Nurse Research: SWATI RATLIFF ([id number])[facility])[address] [place] [address] AST [Catalytic activity/Vol] 14 U/L Low 15-46 [facility] Comment on above: Performed By: #### L [id number] ####Nurse Research: SWATI RATLIFF ([id number])[facility])[address] [place] [address] Bilirubin [Mass/Vol] 0.3 mg/dL Normal 0.2-1.3 [facility] Comment on above: Performed By: #### L [id number] ####Nurse Research: SWATI RATLIFF ([id number])[facility])[address] [place] [address] Calcium [Mass/Vol] 8.6 mg/dL Normal 8.4-10.4 [facility] Comment on above: Performed By: #### L [id number] ####Nurse Research: SWATI RATLIFF ([id number])[facility])[address] [place] [address] Chloride [Moles/Vol] 112 mmol/L High 98-107 [facility] Comment on above: Performed By: #### L [id number] ####Nurse Research: SWATI RATLIFF ([id number])[facility])[address] [place] [address] CO2 [Moles/Vol] 20 mmol/L Low 22-30 [facility] Comment on above: Performed By: #### L [id number] ####Nurse Research: SWATI RATLIFF ([id number])[facility])[address] [place] [address] Creatinine [Mass/Vol] 0.86 mg/dL Normal 0.66-1.25 [facility] Comment on above: Performed By: #### L [id number] ####Nurse Research: SWATI RATLIFF ([id number])[facility])[address] [place] [address] GLOMERULAR FILTRATION RATE ML/MIN/1.73 SQ M.PREDICTED >90.0 Normal >60.0 [facility] Comment on above: Result Comment: Calc ulation based on the Chronic Kidney Disease Epidemiology Collaboration (CKD-EPI) equation refit without adjustment for race Performed By: #### L [id number] ####Nurse Research: SWATI RATLIFF ([id number])[facility])[address] [place] [address] Glucose [Mass/Vol] 154 mg/dL High 70-100 [facility] Comment on above: Performed By: #### L [id number] ####Nurse Research: SWATI RATLIFF ([id number])[facility] ([facility])[address] [place] [address] Potassium [Moles/Vol] 4.1 mmol/L Normal 3.5-5.1 [facility] Comment on above: Performed By: #### L [id number] ####Nurse Research: SWATI RATLIFF ([id number])[facility] ([facility])[address] [place] [address] Protein [Mass/Vol] 5.4 g/dL Low 6.3-8.2 [facility] Comment on above: Performed By: #### L [id number] ####Nurse Research: SWATI RATLIFF ([id number])[facility] ([facility])[address] [place] [address] Sodium [Moles/Vol] 138 mmol/L Normal 135-145 [facility] Comment on above: Performed By: #### L [id number] ####Nurse Research: SWATI RATLIFF ([id number])[facility] ([facility])[address] [place] [address] Urea nitrogen [Mass/Vol] 16 mg/dL Normal 9-20 [facility] Comment on above: Performed By: #### L [id number] ####Nurse Research: SWATI RATLIFF ([id number])[facility])[address] [place] [address] Comprehensive metabolic 1998 panelon 12-05-2023 Albumin [Mass/Vol] 3.0 g/dL Low 3.5 - 5.0 g/dL [facility] ALP [Catalytic activity/Vol] 73 U/L 38 - 126 U/L [facility] ALT [Catalytic activity/Vol] 11 U/L 0 - 49 U/L [facility] Anion gap [Moles/Vol] 6 mmol/L 3 - 13 mmol/L [facility] AST [Catalytic activity/Vol] 14 U/L Low 15 - 46 U/L [facility] Bilirubin [Mass/Vol] 0.3 mg/dL 0.2 - 1 .3 mg/dL [facility] Calcium [Mass/Vol] 8.6 mg/dL 8.4 - 10. 4 mg/dL [facility] Chloride [Moles/Vol] 112 mmol/L High 98 - 10 7 mmol/L [facility] CO2 [Moles/Vol] 20 mmol/L Low 22 - 30 mmol/L [facility] Creatinine [Mass/Vol] 0.86 mg/dL 0.66 - 1.25 mg/dL [facility] GFR/1.73 sq M.predicted (S/P/Bld) [Vol rate/Area] - PINF [facility] Comment on above: Calculation based on the Chronic Kidney Disease Epidemiology Collaboration (CKD-EPI) equation refit without adjustment for race Glucose [Mass/Vol] 154 mg/dL High 70 - 100 mg/dL [facility] Interpretation and review of laboratory results Abnormal [facility] Potassium [Moles/Vol] 4.1 mmol/L 3.5 - 5.1 mmol/L [facility] Protein [Mass/Vol] 5.4 g/dL Low 6.3 - 8.2 g/dL [facility] Sodium [Moles/Vol] 138 mmol/L 135 - 145 mmol/L [facility] Urea nitrogen [Mass/Vol] 16 mg/dL 9 - 20 mg/dL [facility] IDNon 12-05-2023 IDN Normal [facility] Laboratory - Chemistry and C hemistry - challengeon 12-05-2023 Glucose [Mass/Vol] 241 mg/dL High 70 - 100 mg/dL [facility] Glucose [Mass/Vol] 93 mg/dL 70 - 100 mg/dL [facility] No Panel Informationon 12-04 Interpretation and review of laboratory results Abnormal [facility] Performed by: [facility], [address] [place] [address] CLIA ID: [id number] [facility] Interpretation and review of laboratory results Normal [facility] Performed by: [facility], [address] [place] [id number] CLIA ID: [id number] [facility] Nursing Noteon 12-05-2023 Nursing Note Normal [facility] Nursing Note Report called to Juan Normal [facility] Nursing Note Patient is making inappropriate comments to nursing staff, after having a male nurse assigned he requested a new female nurse because he was not "pretty". Patient was reminded that this is a professional environment and this behavior is not appropriate. Normal [facility] Progress Noteon 12-05-2023 Progress Note PHYSICAL THERAPY [facility] Name/MRN: James Reyes ([id number]) Date: 12/05/2023 Attempted treatment at 1201, pt sitting EOB, stating that he is going to [facility] later today, politely declining therapy at this time. Benjei Torres, PT Normal [facility] CARECOORDon 12-04-2023 CARECOORD Reviewed with [facility]. Completed PAS in HENS, will submit for LOC once CRUZ completed. [facility] CARECOORD Normal [facility] CBC W Auto Differential pane l (Bld)Ordered By: Edie Askew on 12-04-2023 Basophils (Bld) [#/Vol] 0.0 10*3/uL 0.0 - 0.2 10*3/uL [facility] Basophils/100 WBC (Bld) 0.5 % 0.0 - 2.0 % [facility] Eosinophils (Bld) [#/Vol] 0.2 10*3/uL 0.0 - 0.5 10*3/uL [facility] Eosinophils/100 WBC (Bld) 4.7 % 0.0 - 6.0 % [facility] Erythrocyte distribution width (RBC) [Ratio] 15.5 % High 11.5 - 15.0 % [facility] Hematocrit (Bld) [Volume fraction] 33.3 % Low 40.0 - 52.0 % [facility] Hemoglobin (Bld) [Mass/Vol] 10.2 g/dL Low 13.0 - 18.0 g/dL [facility] Immature granulocytes (Bld) [#/Vol] 0.0 10*3/uL NINF - 0.1 10*3/uL [facility] Immature granulocytes/100 WBC (Bld) 0.0 % 0.0 - 2.0 % [facility] Interpretation and review of laboratory results Abnormal [facility] Lymphocytes (Bld) [#/Vol] 0.8 10*3/uL Low 1.0 - 4.3 10*3/uL [facility] Lymphocytes/100 WBC (Bld) 20.6 % 15.0 - 45.0 % [facility] MCH (RBC) [Entitic mass] 29.7 pg 26. 0 - 34.0 pg [facility] MCHC (RBC) [Mass/Vol] 30.6 % 30.5 - 36.0 % [facility] MCV (RBC) [Entitic vol] 97.1 fL 77.0 - 99.0 fL [facility] Monocytes (Bld) [#/Vol] 0.5 10*3/uL 0.0 - 0.9 10*3/uL [facility] Monocytes/100 WBC (Bld) 11.8 % 5.0 - 13.0 % [facility] Neutrophils (Bld) [#/Vol] 2.5 10*3/uL 1.8 - 7.5 10*3/uL [facility] Neutrophils/100 WBC (Bld) 62.4 % 38.0 - 82.0 % [facility] Nucleated RBC/100 WBC (Bld) [Ratio] 0.0 % [facility] Platelet mean volume (Bld) [Entitic vol] 10.7 fL 9.0 - 12.7 fL [facility] Platelets (Bld) [#/Vol] 167 10*3/uL 140 - 440 10*3/uL [facility] RBC (Bld) [#/Vol] 3.43 10*6/uL Low 4.40 - 5.9 0 10*6/uL [facility] WBC (Bld) [#/Vol] 4.1 10*3/uL 3.6 - 10.7 10*3/uL [facility] CBC WITH AUTO DIFFERENTIALon 12-04-2023 Basophils (Bld) [#/Vol] 0.0 10*3/uL Normal 0.0-0.2 [facility] Comment on above: Performed By: #### L [id number] ####Nurse Research: SWATI RATLIFF ([phone])[facility] ([address] Basophils/100 WBC (Bld) 0.5 % Normal 0.0-2.0 [facility] Comment on above: Performed By: #### L [id number] ####Nurse Research: SWATI RATLIFF ([phone])[facility])[address] [place] [address] Eosinophils (Bld) [#/Vol] 0.2 10*3/uL Normal 0.0-0.5 [facility] Comment on above: Performed By: #### L [id number] ####Nurse Research: SWATI RATLIFF ([id number])[facility])[address] [place] [address] Eosinophils/100 WBC (Bld) 4.7 % Normal 0.0-6.0 [facility] Comment on above: Performed By: #### L [id number] ####Nurse Research: SWATI RATLIFF ([id number])[address] Erythrocyte distribution width (RBC) [Ratio] 15.5 % High 11.5-15.0 [facility] Comment on above: Performed By: #### L [id number] ####Nurse Research: SWATI RATLIFF ([id number])[address] Hematocrit (Bld) [Volume fraction] 33.3 % Low 40.0-52.0 [facility] Comment on above: Performed By: #### L [id number] ####Nurse Research: SWATI RATLIFF ([phone])[facility])[address] [place] [address] Hemoglobin (Bld) [Mass/Vol] 10.2 g/dL Low 13.0-18.0 [facility] Comment on above: Performed By: #### L [id number] ####Nurse Research: SWATI RATLIFF ([id number])[facility])[address] [place] [address] IMMATURE GRANS % 0.0 % Normal 0.0-2.0 [facility] Comment on above: Performed By: #### L [id number] ####Nurse Research: SWATI [id number])[facility])[address] [place] [address] IMMATURE GRANS ABSOLUTE 0.0 10*3/uL Normal <0.1 [facility] Comment on above: Performed By: #### L [id number] ####Nurse Research: SWATI RATLIFF ([id number])[facility])[address] [place] [address] Lymphocytes (Bld) [#/Vol] 0.8 10*3/uL Low 1.0-4.3 [facility] Comment on above: Performed By: #### L [id number] ####Nurse Research: SWATI RATLIFF ([id number])[facility])[address] [place] [address] Lymphocytes/100 WBC (Bld) 20.6 % Normal 15.0-45.0 [facility] Comment on above: Performed By: #### L [id number] ####Nurse Research: SWATI RATLIFF ([id number])[facility])[address] [place] [address] MCH (RBC) [Entitic mass] 29.7 pg Normal 26.0-34.0 [facility] Comment on above: Performed By: #### L [id number] ####Nurse Research: SWATI RATLIFF ([phone])[facility])[address] [place] [address] MCHC 30.6 % Normal 30.5-36.0 [facility] Comment on above: Performed By: #### L [id number] ####Nurse Research: SWATI RATLIFF ([id number])[facility])[address] [place] [address] MCV (RBC) [Entitic vol] 97.1 fL Normal 77.0-99.0 [facility] Comment on above: Performed By: #### L [id number] ####Nurse Research: SWATI RATLIFF ([id number])[facility])[address] [place] [address] Monocytes (Bld) [#/Vol] 0.5 10*3/uL Normal 0.0-0.9 [facility] Comment on above: Performed By: #### L [id number] ####Nurse Research: SWATI RATLIFF ([id number])[facility] ([facility])[address] [place] [address] Monocytes/100 WBC (Bld) 11.8 % Normal 5.0-13.0 [facility] Comment on above: Performed By: #### L [id number] ####Nurse Research: SWATI RATLIFF ([id number])[facility] ([facility])[address] [place] [address] NEUTROPHILS ABSOLUTE 2.5 10*3/uL Normal 1.8-7.5 [facility] Comment on above: Performed By: #### L [id number] ####Nurse Research: SWATI RATLIFF ([id number])[facility] ([facility])[address] [place] [address] Neutrophils/100 WBC (Bld) 62.4 % Normal 38.0-82.0 [facility] Comment on above: Performed By: #### L [id number] ####Nurse Research: SWATI RATLIFF ([phone])[facility] ([facility])[address] [place] [address] NRBC 0.0 /100 WBCs Normal 0.0-2.0 [facility] Comment on above: Performed By: #### L [id number] ####Nurse Research: SWATI RATLIFF ([id number])[facility] ([facility])[address] [place] [address] Platelet mean volume (Bld) [Entitic vol] 10.7 fL Normal 9.0-12.7 [facility] Comment on above: Performed By: #### L [id number] ####Nurse Research: SWATI RATLIFF ([id number])[facility] ([facility])[address] [place] [address] Platelets (Bld) [#/Vol] 167 10*3/uL Normal 140-440 [facility] Comment on above: Performed By: #### L [id number] ####Nurse Research: SWATI RATLIFF ([id number])[facility] ([facility])[address] [place] [address] RBC (Bld) [#/Vol] 3.43 10*6/uL Low 4.40-5.90 [facility] Comment on above: Performed By: #### L [id number] ####Nurse Research: SWATI RATLIFF ([id number])[facility])[address] [place] [address] WBC (Bld) [#/Vol] 4.1 10*3/uL Normal 3.6-10.7 [facility] Comment on above: Performed By: #### L [id number] ####Nurse Research: SWATI RATLIFF ([phone])[facility])[address] [place] [address] COMPREHENSIVE METABOLIC PANE Cricket 12-04-2023 Albumin [Mass/Vol] 3.0 g/dL Low 3.5-5.0 [facility] Comment on above: Performed By: #### L [id number] ####Nurse Research: SWATI RATLIFF ([id number])[facility] ([facility])[address] [place] [address] ALP [Catalytic activity/Vol] 70 U/L Normal 38-126 [facility] Comment on above: Performed By: #### L [id number] ####Nurse Research: SWATI RATLIFF ([id number])[facility])[address] [place] [address] ALT [Catalytic activity/Vol] 11 U/L Normal 0-49 [facility] Comment on above: Performed By: #### L [id number] ####Nurse Research: SWATI RATLIFF ([id number])[facility])[address] [place] [address] Anion gap [Moles/Vol] 5 mmol/L Normal 3-13 [facility] Comment on above: Performed By: #### L [id number] ####Nurse Research: SWATI RATLIFF ([id number])[facility] [place] [address] AST [Catalytic activity/Vol] 14 U/L Low 15-46 [facility] Comment on above: Performed By: #### L [id number] ####Nurse Research: SWATI RATLIFF ([phone])[facility] ([facility])[address] [place] [address] Bilirubin [Mass/Vol] 0.4 mg/dL Normal 0.2-1.3 [facility] Comment on above: Performed By: #### L [id number] ####Nurse Research: SWATI RATLIFF ([id number])[facility] ([facility])[address] [place] [address] Calcium [Mass/Vol] 8.6 mg/dL Normal 8.4-10.4 [facility] Comment on above: Performed By: #### L [id number] ####Nurse Research: SWATI RATLIFF ([id number])[facility] ([facility])[address] [place] [address] Chloride [Moles/Vol] 114 mmol/L High 98-107 [facility] Comment on above: Performed By: #### L [id number] ####Nurse Research: SWATI RATLIFF ([id number])[facility] ([facility])[address] [place] [address] CO2 [Moles/Vol] 19 mmol/L Low 22-30 [facility] Comment on above: Performed By: #### L [id number] ####Nurse Research: SWATI RATLIFF ([id number])[facility] ([facility])[address] [place] [address] [place] Creatinine [Mass/Vol] 0.93 mg/dL Normal 0.66-1.25 [facility] Comment on above: Performed By: #### L [id number] ####Nurse Research: SWATI RATLIFF ([id number])[facility] ([facility])[address] [place] [address] [place] GLOMERULAR FILTRATION RATE ML/MIN/1.73 SQ M.PREDICTED 90.0 mL/min/1.73m*2 Normal >60.0 [facility] Comment on above: Result Comment: Calc ulation based on the Chronic Kidney Disease Epidemiology Collaboration (CKD-EPI) equation refit without adjustment for race Performed By: #### L [id number] ####Nurse Research: SWATI RATLIFF ([id number])[facility])[address] [place] [address] Glucose [Mass/Vol] 90 mg/dL Normal 70-100 [facility] Comment on above: Performed By: #### L [id number] ####Nurse Research: SWATI RATLIFF ([id number])[facility] ([facility])[address] [place] [address] Potassium [Moles/Vol] 4.2 mmol/L Normal 3.5-5.1 [facility] Comment on above: Performed By: #### L [id number] ####Nurse Research: SWATI RATLIFF ([id number])[facility] ([facility])[address] [place] [address] Protein [Mass/Vol] 5.4 g/dL Low 6.3-8.2 [facility] Comment on above: Performed By: #### L [id number] ####Nurse Research: SWATI RATLIFF ([id number])[facility])[address] [place] [address] Sodium [Moles/Vol] 138 mmol/L Normal 135-145 [facility] Comment on above: Performed By: #### L [id number] ####Nurse Research: SWATI RATLIFF ([id number])[facility])[address] [place] [address] Urea nitrogen [Mass/Vol] 18 mg/dL Normal 9-20 [facility] Comment on above: Performed By: #### L [id number] ####Nurse Research: SWATI RATLIFF ([id number])[facility])[address] [place] [address] Comprehensive metabolic 1998 panelon 12-04-2023 Albumin [Mass/Vol] 3.0 g/dL Low 3.5 - 5.0 g/dL [facility] ALP [Catalytic activity/Vol] 70 U/L 38 - 126 U/L [facility] ALT [Catalytic activity/Vol] 11 U/L 0 - 49 U/L [facility] Anion gap [Moles/Vol] 5 mmol/L 3 - 13 mmol/L [facility] AST [Catalytic activity/Vol] 14 U/L Low 15 - 46 U/L [facility] Bilirubin [Mass/Vol] 0.4 mg/dL 0.2 - 1 .3 mg/dL [facility] Calcium [Mass/Vol] 8.6 mg/dL 8.4 - 10. 4 mg/dL [facility] Chloride [Moles/Vol] 114 mmol/L High 98 - 10 7 mmol/L [facility] CO2 [Moles/Vol] 19 mmol/L Low 22 - 30 mmol/L [facility] Creatinine [Mass/Vol] 0.93 mg/dL 0.66 - 1.25 mg/dL [facility] GFR/1.73 sq M.predicted (S/P/Bld) [Vol rate/Area] 90.0 mL/min - PINF [facility] Comment on above: Calculation based on the Chronic Kidney Disease Epidemiology Collaboration (CKD-EPI) equation refit without adjustment for race Glucose [Mass/Vol] 90 mg/dL 70 - 100 mg/dL [facility] Interpretation and review of laboratory results Abnormal [facility] Potassium [Moles/Vol] 4.2 mmol/L 3.5 - 5.1 mmol/L [facility] Protein [Mass/Vol] 5.4 g/dL Low 6.3 - 8.2 g/dL [facility] Sodium [Moles/Vol] 138 mmol/L 135 - 145 mmol/L [facility] Urea nitrogen [Mass/Vol] 18 mg/dL 9 - 20 mg/dL [facility] - Chemistry and C hemistry - challengeon 12-04-2023 Glucose [Mass/Vol] 190 mg/dL High 70 - 100 mg/dL [facility] Glucose [Mass/Vol] 142 mg/dL High 70 - 100 mg/dL [facility] Glucose [Mass/Vol] 113 mg/dL High 70 - 100 mg/dL [facility] Glucose [Mass/Vol] 118 mg/dL High 70 - 100 mg/dL [facility] Glucose [Mass/Vol] 107 mg/dL High 70 - 100 mg/dL [facility] No Panel Informationon 12-03 Interpretation and review of laboratory results Abnormal [facility] Performed by: [facility], [address] [place] [address], [facility] [address] CLIA ID: [id number] [facility] Interpretation and review of laboratory results Abnormal [facility] Performed by: [facility], [address] [place] [address], [facility] [address] CLIA ID: [id number] [facility] Interpretation and review of laboratory results Abnormal [facility] Performed by: [facility], [address] [place] [address], [facility] [address] CLIA ID: [id number] [facility] Interpretation and review of laboratory results Abnormal [facility] Performed by: [facility], [address] [place] [address], [facility] [address] CLIA ID: [id number] [facility] Interpretation and review of laboratory results Abnormal [facility] Performed by: [facility], [address] [place] [address] CLIA ID: [id number] [facility] Nursing Noteon 12-04-2023 Nursing Note Normal [facility] Progress Noteon 12-04-2023 Progress Note PHYSICAL THERAPY [facility] Name/MRN: James Reyes ([id number]) Date: 12/04/2023 Attempted PT. Pt was sleeping soundly. Will re-attempt PT at later time/date as schedule permits. Heather Berkowitz, GARRETT Normal [facility] Progress Note Normal [facility] Progress Note Normal [facility] Urinalysis complete panel (U )Ordered By: Arnaldo David on 12-04-2023 Bacteria LM.HPF (Urine sed) [#/Area] Loaded Abnormal Negative /HPF [facility] Bilirubin Ql (U) Negative Negative mg/dL [facility] Clarity (U) Turbid Abnormal Clear [facility] Color (U) Yellow Lt. Yellow [facility] Epithelial cells.squamous LM.HPF (Urine sed) [#/Area] 0-2 [facility] Glucose Ql (U) 100 mg/dL Abnormal Normal (<70) [facility] Hemoglobin Ql (U) 0.06 mg/dL Abnormal Negative [facility] Hyaline casts Auto (Urine sed) [#/Area] Negative Negative /LPF [facility] Interpretation and review of laboratory results Abnormal [facility] Ketones (U) [Mass/Vol] Negative Negat abdulkadir mg/dL [facility] Leukocyte clumps LM.HPF (Urine sed) [#/Area] Many Abnormal Negative /HPF [facility] Leukocyte esterase Test strip Ql (U) 500 Abnormal Negative Poornima/uL [facility] Mucus LM.HPF (Urine sed) [#/Area] Few Negative /LPF [facility] Nitrite Ql (U) Positive Abnormal Negative [facility] th pH (U) 8.0 [pH] 5.0 - 8.0 pH [facility] Protein (U) [Mass/Vol] 30 mg/dL Abnormal Negative [facility] RBC LM.HPF (Urine sed) [#/Area] 11-25 Abnormal [facility] Specific gravity (U) [Rel density] 1.012 1.005 - 1.030 [facility] Triple phosphate crystals LM.HPF (Urine sed) [#/Area] Many Abnormal Negative /HPF [facility] Urobilinogen (U) [Mass/Vol] Normal Normal (0-1) mg/dL [facility] WBC LM.HPF (Urine sed) [#/Area] /[HPF] Abnormal [facility] Confirmed by Light Microscopy [facility] CBC W Auto Differential pane l (Bld)on 12-03-2023 Basophils (Bld) [#/Vol] 0.0 10*3/uL 0.0 - 0.2 10*3/uL [facility] Basophils/100 WBC (Bld) 0.5 % 0.0 - 2.0 % [facility] Eosinophils (Bld) [#/Vol] 0.2 10*3/uL 0.0 - 0.5 10*3/uL [facility] Eosinophils/100 WBC (Bld) 4.5 % 0.0 - 6.0 % [facility] Erythrocyte distribution width (RBC) [Ratio] 15.4 % High 11.5 - 15.0 % [facility] Hematocrit (Bld) [Volume fraction] 32.5 % Low 40.0 - 52.0 % [facility] Hemoglobin (Bld) [Mass/Vol] 10.2 g/dL Low 13.0 - 18.0 g/dL [facility] Immature granulocytes (Bld) [#/Vol] 0.0 10*3/uL NINF - 0.1 10*3/uL [facility] Immature granulocytes/100 WBC (Bld) 0.2 % 0.0 - 2.0 % [facility] Interpretation and review of laboratory results Abnormal [facility] Lymphocytes (Bld) [#/Vol] 0.9 10*3/uL Low 1.0 - 4.3 10*3/uL [facility] Lymphocytes/100 WBC (Bld) 20.9 % 15.0 - 45.0 % [facility] MCH (RBC) [Entitic mass] 30.4 pg 26. 0 - 34.0 pg [facility] MCHC (RBC) [Mass/Vol] 31.4 % 30.5 - 36.0 % [facility] MCV (RBC) [Entitic vol] 96.7 fL 77.0 - 99.0 fL [facility] Monocytes (Bld) [#/Vol] 0.5 10*3/uL 0.0 - 0.9 10*3/uL [facility] Monocytes/100 WBC (Bld) 10.9 % 5.0 - 13.0 % [facility] Neutrophils (Bld) [#/Vol] 2.7 10*3/uL 1.8 - 7.5 10*3/uL [facility] Neutrophils/100 WBC (Bld) 63.0 % 38.0 - 82.0 % [facility] Nucleated RBC/100 WBC (Bld) [Ratio] 0.0 % [facility] Platelet mean volume (Bld) [Entitic vol] 10.5 fL 9.0 - 12.7 fL [facility] Platelets (Bld) [#/Vol] 165 10*3/uL 140 - 440 10*3/uL [facility] RBC (Bld) [#/Vol] 3.36 10*6/uL Low 4.40 - 5.9 0 10*6/uL [facility] WBC (Bld) [#/Vol] 4.2 10*3/uL 3.6 - 10.7 10*3/uL [facility] CBC WITH AUTO DIFFERENTIALon 12-03-2023 Basophils (Bld) [#/Vol] 0.0 10*3/uL Normal 0.0-0.2 [facility] Comment on above: Performed By: #### L [id number] ####Nurse Research: SWATI RATLIFF ([phone])[facility])[address] [place] [address] Basophils/100 WBC (Bld) 0.5 % Normal 0.0-2.0 [facility] Comment on above: Performed By: #### L [id number] ####Nurse Research: SWATI RATLIFF ([phone])[facility])[address] [place] [address] Eosinophils (Bld) [#/Vol] 0.2 10*3/uL Normal 0.0-0.5 [facility] Comment on above: Performed By: #### L [id number] ####Nurse Research: SWATI RATLIFF ([phone])[facility])[address] [place] [address] Eosinophils/100 WBC (Bld) 4.5 % Normal 0.0-6.0 [facility] Comment on above: Performed By: #### L [id number] ####Nurse Research: SWATI RATLIFF ([phone])[facility])[address] [place] [address] Erythrocyte distribution width (RBC) [Ratio] 15.4 % High 11.5-15.0 [facility] Comment on above: Performed By: #### L [id number] ####Nurse Research: SWATI RATLIFF ([phone])[facility])[address] [place] [address] Hematocrit (Bld) [Volume fraction] 32.5 % Low 40.0-52.0 [facility] Comment on above: Performed By: #### L [id number] ####Nurse Research: SWATI RATLIFF ([phone])[facility])[address] [place] [address] Hemoglobin (Bld) [Mass/Vol] 10.2 g/dL Low 13.0-18.0 [facility] Comment on above: Performed By: #### L [id number] ####Nurse Research: SWATI RATLIFF ([phone])[facility])[address] [place] [address] IMMATURE GRANS % 0.2 % Normal 0.0-2.0 [facility] Comment on above: Performed By: #### L [id number] ####Nurse Research: SWATI RATLIFF ([phone])[facility])[address] [place] [address] IMMATURE GRANS ABSOLUTE 0.0 10*3/uL Normal <0.1 [facility] Comment on above: Performed By: #### L [id number] ####Nurse Research: SWATI RATLIFF ([phone])[facility])[address] [place] [address] Lymphocytes (Bld) [#/Vol] 0.9 10*3/uL Low 1.0-4.3 [facility] Comment on above: Performed By: #### L [id number] ####Nurse Research: SWATI RATLIFF ([phone])[facility])[address] [place] [address] Lymphocytes/100 WBC (Bld) 20.9 % Normal 15.0-45.0 [facility] Comment on above: Performed By: #### L [id number] ####Nurse Research: SWATI RATLIFF ([phone])[facility])[address] [place] [address] MCH (RBC) [Entitic mass] 30.4 pg Normal 26.0-34.0 [facility] Comment on above: Performed By: #### L [id number] ####Nurse Research: SWATI RATLIFF ([phone])[facility])[address] [place] [address] MCHC 31.4 % Normal 30.5-36.0 [facility] Comment on above: Performed By: #### L [id number] ####Nurse Research: SWATI RATLIFF ([phone])[facility])[address] [place] [address] MCV (RBC) [Entitic vol] 96.7 fL Normal 77.0-99.0 [facility] Comment on above: Performed By: #### L [id number] ####Nurse Research: SWATI RATLIFF ([phone])[facility] ([facility])[address] [place] [address] Monocytes (Bld) [#/Vol] 0.5 10*3/uL Normal 0.0-0.9 [facility] Comment on above: Performed By: #### L [id number] ####Nurse Research: SWATI RATLIFF ([phone])[facility] ([facility])[address] [place] [address] Monocytes/100 WBC (Bld) 10.9 % Normal 5.0-13.0 [facility] Comment on above: Performed By: #### L [id number] ####Nurse Research: SWATI RATLIFF ([phone])[facility] ([facility])[address] [place] [address] NEUTROPHILS ABSOLUTE 2.7 10*3/uL Normal 1.8-7.5 [facility] Comment on above: Performed By: #### L [id number] ####Nurse Research: SWATI RATLIFF ([phone])[facility] ([facility])[address] [place] [address] Neutrophils/100 WBC (Bld) 63.0 % Normal 38.0-82.0 [facility] Comment on above: Performed By: #### L [id number] ####Nurse Research: SWATI RATLIFF ([phone])[facility] ([facility])[address] [place] [address] NRBC 0.0 /100 WBCs Normal 0.0-2.0 [facility] Comment on above: Performed By: #### L [id number] ####Nurse Research: SWATI RATLIFF ([phone])[facility])[address] [place] [address] Platelet mean volume (Bld) [Entitic vol] 10.5 fL Normal 9.0-12.7 [facility] Comment on above: Performed By: #### L [id number] ####Nurse Research: SWATI RATLIFF ([phone])[facility] ([facility])[address] [place] [address] Platelets (Bld) [#/Vol] 165 10*3/uL Normal 140-440 [facility] Comment on above: Performed By: #### L [id number] ####Nurse Research: SWATI RATLIFF ([phone])[facility] ([facility])[address] [place] [address] RBC (Bld) [#/Vol] 3.36 10*6/uL Low 4.40-5.90 [facility] Comment on above: Performed By: #### L [id number] ####Nurse Research: SWATI RATLIFF ([phone])[facility] ([facility])[address] [place] [address] WBC (Bld) [#/Vol] 4.2 10*3/uL Normal 3.6-10.7 [facility] Comment on above: Performed By: #### L [id number] ####Nurse Research: SWATI RATLIFF ([phone])[facility] ([facility])[address] [place] [address] COMPLETE URINALYSISon 2023 BACTERIA (#/HPF) IN URINE Loaded Abnormal Negative [facility] Comment on above: Performed By: #### L [id number] ####Nurse Research: SWATI RATLIFF ([phone])[facility])[address] [place] [address] BILIRUBIN, TOTAL PRESENCE IN URINE Negative Normal Negative [facility] Comment on above: Performed By: #### L [id number] ####Nurse Research: SWATI RATLIFF ([phone])[facility] ([facility])[address] [place] [address] Clarity (U) Turbid Abnormal Clear [facility] Comment on above: Performed By: #### L [id number] ####Nurse Research: SWATI RATLIFF ([phone])[facility] ([facility])[address] [place] [address] Color (U) Yellow Normal Lt. Yellow [facility] Comment on above: Performed By: #### L [id number] ####Nurse Research: SWATI RATLIFF ([phone])[facility])[address] [place] [address] Glucose (U) [Mass/Vol] 100 mg/dL Abnormal Janice l (<70) [facility] Comment on above: Performed By: #### L [id number] ####Nurse Research: SWATI RATLIFF ([phone])[facility] ([facility])[address] [place] [address] HEMOGLOBIN PRESENCE IN URINE 0.06 mg/dL Abnormal Negative [facility] Comment on above: Performed By: #### L [id number] ####Nurse Research: SWATI RATLIFF ([phone])[facility] ([facility])[address] [place] [address] HYALINE CASTS (#/LPF) IN URINE SEDIMENT BY MICROSCOPY Negative Normal Negative [facility] Comment on above: Performed By: #### L [id number] ####Nurse Research: SWATI RATLIFF ([phone])[facility])[address] [place] [address] Ketones Ql (U) Negative Normal Negative [facility] Comment on above: Performed By: #### L [id number] ####Nurse Research: SWATI RATLIFF ([phone])[facility] ([facility])[address] [place] [address] LEUKOCYTE ESTERASE PRESENCE IN URINE BY TEST STRIP 500 Poornima/uL Abnormal Negative [facility] Comment on above: Performed By: #### L [id number] ####Nurse Research: SWATI RATLIFF ([phone])[facility] ([facility])[address] [place] [address] [place] MUCUS (#/LPF) IN URINE SEDIMENT Few Normal Negative [facility] Comment on above: Performed By: #### L [id number] ####Nurse Research: SWATI RATLIFF ([phone])[facility] ([facility])[address] [place] [address] NITRITE PRESENCE IN URINE Positive Abnormal Negative [facility] Comment on above: Performed By: #### L [id number] ####Nurse Research: SWATI RATLIFF ([phone])[facility] ([facility])[address] [place] [address] pH (U) 8.0 [pH] Normal 5.0-8.0 [facility] Comment on above: Performed By: #### L [id number] ####Nurse Research: SWATI RATLIFF ([phone])[facility] ([facility])[address] [place] [address] Protein (U) [Mass/Vol] 30 mg/dL Abnormal Negative [facility] Comment on above: Performed By: #### L [id number] ####Nurse Research: SWATI RATLIFF ([phone])[facility])[address] [place] [address] RBC (#/HPF) IN URINE SEDIMENT 11-25 Abnormal 0-2 [facility] Comment on above: Performed By: #### L [id number] ####Nurse Research: SWATI RATLIFF ([phone])[facility] ([facility])[address] [place] [address] Specific gravity (U) [Rel density] 1.012 Normal 1.005-1.030 [facility] Comment on above: Result Comment: TAVO Hernandez COMMENTS:Confirmed by Light Microscopy Performed By: #### L [id number] ####Nurse Research: SWATI RATLIFF ([phone])[facility] ([facility])[address] [place] [address] SQUAMOUS EPITHELIAL CELLS (#/HPF) IN URINE SEDIMENT 0-2 Normal 3-5 [facility] Comment on above: Performed By: #### L [id number] ####Nurse Research: SWATI RATLIFF ([phone])[facility])[address] [place] [address] TRIPLE PHOSPHATE CRYSTALS (#/HPF) IN URINE Many Abnormal Negative [facility] Comment on above: Performed By: #### L [id number] ####Nurse Research: SWATI RATLIFF ([phone])[facility] ([facility])[address] [place] [address] UROBILINOGEN (MG/DL) IN URINE Normal Normal Normal (0-1) [facility] Comment on above: Performed By: #### L [id number] ####Nurse Research: SWATI RATLIFF ([phone])[facility] ([facility])[address] [place] [address] WBC (LEUKOCYTE) (#/HPF) IN URINE SEDIMENT >100 Abnormal 0-5 [facility] Comment on above: Performed By: #### L [id number] ####Nurse Research: SWATI RATLIFF ([phone])[facility] ([facility])[address] [place] [address] WBC (LEUKOCYTE) CLUMPS (#/HPF) IN URINE SEDIMENT Many Abnormal Negative [facility] Comment on above: Performed By: #### L [id number] ####Nurse Research: SWATI RATLIFF ([phone])[facility] ([facility])[address] [place] [address] COMPREHENSIVE METABOLIC PANE Cricket 12-03-2023 Albumin [Mass/Vol] 2.9 g/dL Low 3.5-5.0 [facility] Comment on above: Performed By: #### L [id number] ####Nurse Research: SWATI RATLIFF ([phone])[facility] ([facility])[address] [place] [address] ALP [Catalytic activity/Vol] 71 U/L Normal 38-126 [facility] Comment on above: Performed By: #### L [id number] ####Nurse Research: SWATI RATLIFF ([phone])[facility])[address] [place] [address] ALT [Catalytic activity/Vol] 12 U/L Normal 0-49 [facility] Comment on above: Performed By: #### L [id number] ####Nurse Research: SWATI RATLIFF ([phone])[facility] ([facility])[address] [place] [address] Anion gap [Moles/Vol] 5 mmol/L Normal 3-13 [facility] Comment on above: Performed By: #### L [id number] ####Nurse Research: SWATI RATLIFF ([phone])[facility] [place] [address] AST [Catalytic activity/Vol] 13 U/L Low 15-46 [facility] Comment on above: Performed By: #### L [id number] ####Nurse Research: SWATI RATLIFF ([phone])[facility])[address] [place] [address] Bilirubin [Mass/Vol] 0.3 mg/dL Normal 0.2-1.3 [facility] Comment on above: Performed By: #### L [id number] ####Nurse Research: SWATI RATLIFF ([phone])[facility] ([facility])[address] [place] [address] Calcium [Mass/Vol] 8.4 mg/dL Normal 8.4-10.4 [facility] Comment on above: Performed By: #### L [id number] ####Nurse Research: SWATI RATLIFF ([phone])[facility])[address] [place] [address] [place] Chloride [Moles/Vol] 114 mmol/L High 98-107 [facility] Comment on above: Performed By: #### L [id number] ####Nurse Research: SWATI RATLIFF ([phone])[facility] ([facility])[address] [place] [address] [place] CO2 [Moles/Vol] 20 mmol/L Low 22-30 [facility] Comment on above: Performed By: #### L [id number] ####Nurse Research: SWATI RATLIFF ([phone])[facility] ([facility])[address] [place] [address] [place] Creatinine [Mass/Vol] 0.93 mg/dL Normal 0.66-1.25 [facility] Comment on above: Performed By: #### L [id number] ####Nurse Research: SWATI RATLIFF ([phone])[facility])[address] [place] [address] [place] GLOMERULAR FILTRATION RATE ML/MIN/1.73 SQ M.PREDICTED 90.0 mL/min/1.73m*2 Normal >60.0 [facility] Comment on above: Result Comment: Calc ulation based on the Chronic Kidney Disease Epidemiology Collaboration (CKD-EPI) equation refit without adjustment for race Performed By: #### L [id number] ####Nurse Research: SWATI RATLIFF ([phone])[facility] ([facility])[address] [place] [address] Glucose [Mass/Vol] 134 mg/dL High 70-100 [facility] Comment on above: Performed By: #### L [id number] ####Nurse Research: SWATI RATLIFF ([phone])[facility])[address] [place] [address] Potassium [Moles/Vol] 3.9 mmol/L Normal 3.5-5.1 [facility] Comment on above: Performed By: #### L [id number] ####Nurse Research: SWATI RATLIFF ([phone])[facility] ([facility])[address] [place] [address] Protein [Mass/Vol] 5.3 g/dL Low 6.3-8.2 [facility] Comment on above: Performed By: #### L [id number] ####Nurse Research: SWATI RATLIFF ([phone])[facility] ([facility])[address] [place] [address] Sodium [Moles/Vol] 139 mmol/L Normal 135-145 [facility] Comment on above: Performed By: #### L [id number] ####Nurse Research: SWATI RATLIFF ([phone])[facility])[address] [place] [address] [place] Urea nitrogen [Mass/Vol] 19 mg/dL Normal 9-20 [facility] Comment on above: Performed By: #### L [id number] ####Nurse Research: SWATI RATLIFF ([phone])[facility] ([facility])[address] [place] [address] Comprehensive metabolic 1998 panelon 12-03-2023 Albumin [Mass/Vol] 2.9 g/dL Low 3.5 - 5.0 g/dL [facility] ALP [Catalytic activity/Vol] 71 U/L 38 - 126 U/L [facility] ALT [Catalytic activity/Vol] 12 U/L 0 - 49 U/L [facility] Anion gap [Moles/Vol] 5 mmol/L 3 - 13 mmol/L [facility] AST [Catalytic activity/Vol] 13 U/L Low 15 - 46 U/L [facility] Bilirubin [Mass/Vol] 0.3 mg/dL 0.2 - 1 .3 mg/dL [facility] Calcium [Mass/Vol] 8.4 mg/dL 8.4 - 10. 4 mg/dL [facility] Chloride [Moles/Vol] 114 mmol/L High 98 - 10 7 mmol/L [facility] CO2 [Moles/Vol] 20 mmol/L Low 22 - 30 mmol/L [facility] Creatinine [Mass/Vol] 0.93 mg/dL 0.66 - 1.25 mg/dL [facility] GFR/1.73 sq M.predicted (S/P/Bld) [Vol rate/Area] 90.0 mL/min - PINF [facility] Comment on above: Calculation based on the Chronic Kidney Disease Epidemiology Collaboration (CKD-EPI) equation refit without adjustment for race Glucose [Mass/Vol] 134 mg/dL High 70 - 100 mg/dL [facility] Interpretation and review of laboratory results Abnormal [facility] Potassium [Moles/Vol] 3.9 mmol/L 3.5 - 5.1 mmol/L [facility] Protein [Mass/Vol] 5.3 g/dL Low 6.3 - 8.2 g/dL [facility] Sodium [Moles/Vol] 139 mmol/L 135 - 145 mmol/L [facility] Urea nitrogen [Mass/Vol] 19 mg/dL 9 - 20 mg/dL [facility] - Chemistry and C hemistry - challengeon 12-03-2023 Glucose [Mass/Vol] 165 mg/dL High 70 - 100 mg/dL [facility] Glucose [Mass/Vol] 101 mg/dL High 70 - 100 mg/dL [facility] Glucose [Mass/Vol] 169 mg/dL High 70 - 100 mg/dL [facility] Glucose [Mass/Vol] 119 mg/dL High 70 - 100 mg/dL [facility] No Panel Informationon 12-02 Interpretation and review of laboratory results Abnormal [facility] Performed by: [facility], [address] [place] [id number] CLIA ID: [id number] [facility] Interpretation and review of laboratory results Abnormal [facility] [facility], [address] [place] [address] CLIA ID: [id number] [facility] Interpretation and review of laboratory results Abnormal [facility] Performed by: [facility], [address] [place] [address] CLIA ID: [id number] [facility] Interpretation and review of laboratory results Abnormal [facility] Performed by: [facility], [address] [place] [address] CLIA ID: [id number] [facility] Progress Noteon 12-03-2023 Progress Note [facility] URINE CULTUREon 12-03-2023 Bacteria identified Cx Nom (U) Normal [facility] Comment on above: Performed By: #### L [id number] ####Nurse Research: SWATI RATLIFF ([phone])[facility] ([facility])[address] [place] [address] 25-hydroxyvitamin D3 [Mass/V ol]on 12-02-2023 Interpretation and review of laboratory results Abnormal [facility] Therapy is based on measurement of Total 25-OHD with the following classification levels: Less than 20 ng/mL: Indicative of Vit D deficiency 20-30 ng/mL: Suggests Vit D insufficiency Optimal: Greater than or equal to 30 ng/mL Test performed by Kerlink Competitive Immunoassay, measuring Total Vitamin D, not individual fractions. [facility] CBC W Auto Differential pane l (Bld)on 12-02-2023 Basophils (Bld) [#/Vol] 0.0 10*3/uL 0.0 - 0.2 10*3/uL [facility] Basophils/100 WBC (Bld) 0.7 % 0.0 - 2.0 % [facility] Eosinophils (Bld) [#/Vol] 0.2 10*3/uL 0.0 - 0.5 10*3/uL [facility] Eosinophils/100 WBC (Bld) 4.6 % 0.0 - 6.0 % [facility] Erythrocyte distribution width (RBC) [Ratio] 15.7 % High 11.5 - 15.0 % [facility] Hematocrit (Bld) [Volume fraction] 33.7 % Low 40.0 - 52.0 % [facility] Hemoglobin (Bld) [Mass/Vol] 10.5 g/dL Low 13.0 - 18.0 g/dL [facility] Immature granulocytes (Bld) [#/Vol] 0.0 10*3/uL NINF - 0.1 10*3/uL [facility] Immature granulocytes/100 WBC (Bld) 0.2 % 0.0 - 2.0 % [facility] Interpretation and review of laboratory results Abnormal [facility] Lymphocytes (Bld) [#/Vol] 0.8 10*3/uL Low 1.0 - 4.3 10*3/uL [facility] Lymphocytes/100 WBC (Bld) 18.0 % 15.0 - 45.0 % [facility] MCH (RBC) [Entitic mass] 30.3 pg 26. 0 - 34.0 pg [facility] MCHC (RBC) [Mass/Vol] 31.2 % 30.5 - 36.0 % [facility] MCV (RBC) [Entitic vol] 97.1 fL 77.0 - 99.0 fL [facility] Monocytes (Bld) [#/Vol] 0.5 10*3/uL 0.0 - 0.9 10*3/uL [facility] Monocytes/100 WBC (Bld) 11.4 % 5.0 - 13.0 % [facility] Neutrophils (Bld) [#/Vol] 3.0 10*3/uL 1.8 - 7.5 10*3/uL [facility] Neutrophils/100 WBC (Bld) 65.1 % 38.0 - 82.0 % [facility] Nucleated RBC/100 WBC (Bld) [Ratio] 0.0 % [facility] Platelet mean volume (Bld) [Entitic vol] 10.7 fL 9.0 - 12.7 fL [facility] Platelets (Bld) [#/Vol] 171 10*3/uL 140 - 440 10*3/uL [facility] RBC (Bld) [#/Vol] 3.47 10*6/uL Low 4.40 - 5.9 0 10*6/uL [facility] WBC (Bld) [#/Vol] 4.6 10*3/uL 3.6 - 10.7 10*3/uL [facility] CBC WITH AUTO DIFFERENTIALon 12-02-2023 Basophils (Bld) [#/Vol] 0.0 10*3/uL Normal 0.0-0.2 [facility] Comment on above: Performed By: #### L [id number] ####Nurse Research: SWATI RATLIFF ([phone])[facility] ([facility])[address] [place] [address] Basophils/100 WBC (Bld) 0.7 % Normal 0.0-2.0 [facility] Comment on above: Performed By: #### L [id number] ####Nurse Research: SWATI RATLIFF ([phone])[facility])[address] [place] [address] Eosinophils (Bld) [#/Vol] 0.2 10*3/uL Normal 0.0-0.5 [facility] Comment on above: Performed By: #### L [id number] ####Nurse Research: SWATI RATLIFF ([phone])[facility])[address] [place] [address] Eosinophils/100 WBC (Bld) 4.6 % Normal 0.0-6.0 [facility] Comment on above: Performed By: #### L [id number] ####Nurse Research: SWATI RATLIFF ([phone])[facility])[address] [place] [address] Erythrocyte distribution width (RBC) [Ratio] 15.7 % High 11.5-15.0 [facility] Comment on above: Performed By: #### L [id number] ####Nurse Research: SWATI RATLIFF ([phone])[facility])[address] [place] [address] Hematocrit (Bld) [Volume fraction] 33.7 % Low 40.0-52.0 [facility] Comment on above: Performed By: #### L [id number] ####Nurse Research: SWATI RATLIFF ([phone])[facility])[address] [place] [address] Hemoglobin (Bld) [Mass/Vol] 10.5 g/dL Low 13.0-18.0 [facility] Comment on above: Performed By: #### L [id number] ####Nurse Research: SWATI RATLIFF ([phone])[facility])[address] [place] [address] IMMATURE GRANS % 0.2 % Normal 0.0-2.0 [facility] Comment on above: Performed By: #### L [id number] ####Nurse Research: SWATI RATLIFF ([id number])[facility])[address] [place] [address] IMMATURE GRANS ABSOLUTE 0.0 10*3/uL Normal <0.1 [facility] Comment on above: Performed By: #### L [id number] ####Nurse Research: SWATI RATLIFF ([phone])[facility])[address] [place] [address] Lymphocytes (Bld) [#/Vol] 0.8 10*3/uL Low 1.0-4.3 [facility] Comment on above: Performed By: #### L [id number] ####Nurse Research: SWATI RATLIFF ([phone])[facility])[address] [place] [address] Lymphocytes/100 WBC (Bld) 18.0 % Normal 15.0-45.0 [facility] Comment on above: Performed By: #### L [id number] ####Nurse Research: SWATI RATLIFF ([phone])[facility])[address] [place] [address] MCH (RBC) [Entitic mass] 30.3 pg Normal 26.0-34.0 [facility] Comment on above: Performed By: #### L [id number] ####Nurse Research: SWATI RATLIFF ([phone])[facility] ([facility])[address] [place] [address] MCHC 31.2 % Normal 30.5-36.0 [facility] Comment on above: Performed By: #### L [id number] ####Nurse Research: SWATI RATLIFF ([phone])[facility] ([facility])[address] [place] [address] MCV (RBC) [Entitic vol] 97.1 fL Normal 77.0-99.0 [facility] Comment on above: Performed By: #### L [id number] ####Nurse Research: SWATI RATLIFF ([phone])[facility] ([facility])[address] [place] [address] Monocytes (Bld) [#/Vol] 0.5 10*3/uL Normal 0.0-0.9 [facility] Comment on above: Performed By: #### L [id number] ####Nurse Research: SWATI RATLIFF ([phone])[facility] ([facility])[address] [place] [address] Monocytes/100 WBC (Bld) 11.4 % Normal 5.0-13.0 [facility] Comment on above: Performed By: #### L [id number] ####Nurse Research: SWATI RATLIFF ([phone])[facility] ([facility])[address] [place] [address] NEUTROPHILS ABSOLUTE 3.0 10*3/uL Normal 1.8-7.5 [facility] Comment on above: Performed By: #### L [id number] ####Nurse Research: SWATI RATLIFF ([phone])[facility] ([facility])[address] [place] [address] Neutrophils/100 WBC (Bld) 65.1 % Normal 38.0-82.0 [facility] Comment on above: Performed By: #### L [id number] ####Nurse Research: SWATI RATLIFF ([id number])[facility] ([facility])[address] [place] [address] NRBC 0.0 /100 WBCs Normal 0.0-2.0 [facility] Comment on above: Performed By: #### L [id number] ####Nurse Research: SWATI RATLIFF ([phone])[facility] ([facility])[address] [place] [address] Platelet mean volume (Bld) [Entitic vol] 10.7 fL Normal 9.0-12.7 [facility] Comment on above: Performed By: #### L [id number] ####Nurse Research: SWATI RATLIFF ([phone])[facility] ([facility])[address] [place] [address] Platelets (Bld) [#/Vol] 171 10*3/uL Normal 140-440 [facility] Comment on above: Performed By: #### L [id number] ####Nurse Research: SWATI RATLIFF ([phone])[facility] ([facility])[address] [place] [address] RBC (Bld) [#/Vol] 3.47 10*6/uL Low 4.40-5.90 [facility] Comment on above: Performed By: #### L [id number] ####Nurse Research: SWATI RATLIFF ([phone])[facility] ([facility])[address] [place] [address] WBC (Bld) [#/Vol] 4.6 10*3/uL Normal 3.6-10.7 [facility] Comment on above: Performed By: #### L [id number] ####Nurse Research: SWATI RATLIFF ([id number])[facility] ([facility])[address] [place] [address] COMPREHENSIVE METABOLIC PANE Cricket 12-02-2023 Albumin [Mass/Vol] 3.1 g/dL Low 3.5-5.0 [facility] Comment on above: Performed By: #### L [id number], [id number] ####Nurse Research: SWATI RATLIFF ([phone])[facility] ([facility])[address] [place] [address] ALP [Catalytic activity/Vol] 82 U/L Normal 38-126 [facility] Comment on above: Performed By: #### Joyce ANDRE [id number] ####Nurse Research: SWATI RATLIFF ([phone])[facility] ([facility])[address] [place] [address] ALT [Catalytic activity/Vol] 14 U/L Normal 0-49 [facility] Comment on above: Performed By: #### Joyce ANDRE [id number] ####Nurse Research: SWATI RATLIFF ([phone])[facility] ([facility])[address] [place] [address] Anion gap [Moles/Vol] 5 mmol/L Normal 3-13 [facility] Comment on above: Performed By: #### Joyce ANDRE [id number] ####Nurse Research: SWATI RATLIFF ([phone])[facility])[address] [place] [address] AST [Catalytic activity/Vol] 16 U/L Normal 15-46 [facility] Comment on above: Performed By: #### Joyce ANDRE [id number] ####Nurse Research: SWATI RATLIFF ([phone])[facility] ([facility])[address] [place] [address] Bilirubin [Mass/Vol] 0.3 mg/dL Normal 0.2-1.3 [facility] Comment on above: Performed By: #### Joyce ANDRE [id number] ####Nurse Research: SWATI RATLIFF ([phone])[facility] ([facility])[address] [place] [address] Calcium [Mass/Vol] 8.5 mg/dL Normal 8.4-10.4 [facility] Comment on above: Performed By: #### Joyce ANDRE [id number] ####Nurse Research: SWATI RATLIFF ([phone])[facility])[address] [place] [address] Chloride [Moles/Vol] 113 mmol/L High 98-107 [facility] Comment on above: Performed By: #### Joyce ANDRE [id number] ####Nurse Research: SWATI RATLIFF ([phone])[facility] ([facility])[address] [place] [address] CO2 [Moles/Vol] 18 mmol/L Low 22-30 [facility] Comment on above: Performed By: #### Joyce ANDRE, [id number] ####Nurse Research: SWATI RATLIFF ([phone])[facility])[address] [place] [address] Creatinine [Mass/Vol] 1.00 mg/dL Normal 0.66-1.25 [facility] Comment on above: Performed By: #### Joyce ANDRE [id number] ####Nurse Research: SWATI RATLIFF ([phone])[facility])[address] [place] [address] GLOMERULAR FILTRATION RATE ML/MIN/1.73 SQ M.PREDICTED 82.5 mL/min/1.73m*2 Normal >60.0 [facility] Comment on above: Result Comment: Calc ulation based on the Chronic Kidney Disease Epidemiology Collaboration (CKD-EPI) equation refit without adjustment for race Performed By: #### Joyce ANDRE, [id number] ####Nurse Research: SWATI RATLIFF ([id number])[facility])[address] [place] [address] Glucose [Mass/Vol] 216 mg/dL High 70-100 [facility] Comment on above: Performed By: #### Joyce ANDRE [id number] ####Nurse Research: SWATI RATLIFF ([phone])[facility])[address] [place] [address] Potassium [Moles/Vol] 4.1 mmol/L Normal 3.5-5.1 [facility] Comment on above: Performed By: #### Joyce ANDRE, [id number] ####Nurse Research: SWATI RATLIFF ([phone])[facility])[address] [place] [address] [place] Protein [Mass/Vol] 5.5 g/dL Low 6.3-8.2 [facility] Comment on above: Performed By: #### Joyce [id number], [id number] ####Nurse Research: SWATI RATLIFF ([phone])[facility])[address] [place] [address] Sodium [Moles/Vol] 137 mmol/L Normal 135-145 [facility] Comment on above: Performed By: #### Joyce ANDRE, [id number] ####Nurse Research: SWATI RATLIFF ([phone])[facility])[address] [place] [address] Urea nitrogen [Mass/Vol] 23 mg/dL High 9-20 [facility] Comment on above: Performed By: #### Joyce ANDRE, [id number] ####Nurse Research: SWATI RATLIFF ([phone])[facility])[address] [place] [address] Comprehensive metabolic 1998 panelon 12-02-2023 Albumin [Mass/Vol] 3.1 g/dL Low 3.5 - 5.0 g/dL [facility] ALP [Catalytic activity/Vol] 82 U/L 38 - 126 U/L [facility] ALT [Catalytic activity/Vol] 14 U/L 0 - 49 U/L [facility] Anion gap [Moles/Vol] 5 mmol/L 3 - 13 mmol/L [facility] AST [Catalytic activity/Vol] 16 U/L 15 - 46 U/L [facility] Bilirubin [Mass/Vol] 0.3 mg/dL 0.2 - 1 .3 mg/dL [facility] Calcium [Mass/Vol] 8.5 mg/dL 8.4 - 10. 4 mg/dL [facility] Chloride [Moles/Vol] 113 mmol/L High 98 - 10 7 mmol/L [facility] CO2 [Moles/Vol] 18 mmol/L Low 22 - 30 mmol/L [facility] Creatinine [Mass/Vol] 1.00 mg/dL 0.66 - 1.25 mg/dL [facility] GFR/1.73 sq M.predicted (S/P/Bld) [Vol rate/Area] 82.5 mL/min - PINF [facility] Comment on above: Calculation based on the Chronic Kidney Disease Epidemiology Collaboration (CKD-EPI) equation refit without adjustment for race Glucose [Mass/Vol] 216 mg/dL High 70 - 100 mg/dL [facility] Interpretation and review of laboratory results Abnormal [facility] Potassium [Moles/Vol] 4.1 mmol/L 3.5 - 5.1 mmol/L [facility] Protein [Mass/Vol] 5.5 g/dL Low 6.3 - 8.2 g/dL [facility] Sodium [Moles/Vol] 137 mmol/L 135 - 145 mmol/L [facility] Urea nitrogen [Mass/Vol] 23 mg/dL High 9 - 20 mg/dL [facility] - Chemistry and C hemistry - challengeon 12-02-2023 Glucose [Mass/Vol] 259 mg/dL High 70 - 100 mg/dL [facility] Glucose [Mass/Vol] 142 mg/dL High 70 - 100 mg/dL [facility] Comment on above: Caregiver Notified; Glucose [Mass/Vol] 207 mg/dL High 70 - 100 mg/dL [facility] Comment on above: Caregiver Notified; 25-hydroxyvitamin D3 [Mass/Vol] 24 ng/mL Low 30 - 100 ng/mL [facility] Glucose [Mass/Vol] 156 mg/dL High 70 - 100 mg/dL [facility] Comment on above: Caregiver Notified; Troponin I.cardiac [Mass/Vol] ng/mL NINF - 0.034 ng/mL [facility] No Panel Informationon 12-01 Interpretation and review of laboratory results Abnormal [facility] Performed by: [facility], [address] [place] [address] CLIA ID: [id number] [facility] Interpretation and review of laboratory results Abnormal [facility] Performed by: [facility], [address] [place] [address] CLIA ID: [id number] [facility] Interpretation and review of laboratory results Abnormal [facility] Performed by: [facility], [address] [place] [address] CLIA ID: [id number] [facility] Interpretation and review of laboratory results Abnormal [facility] Performed by: [facility], [address] [place] [address] CLIA ID: [id number] [facility] Progress Noteon 12-02-2023 Progress Note Normal [facility] TROPONIN Ion 12-02-2023 Troponin I.cardiac [Mass/Vol] ng/mL Normal <0.034 [facility] Comment on above: Result Comment: TAVO Hernandez COMMENTS:Patients with high levels of Biotin oral intake (ie >5 mg/day) may have falsely decreased Troponin levels. Performed By: #### L [id number], [id number] ####Nurse Research: SWATI RATLIFF ([phone])[facility] ([facility])[address] [place] [address] Troponin I.cardiac [Mass/Vol ]on 12-02-2023 Interpretation and review of laboratory results Normal [facility] Patients with high levels of Biotin oral intake (ie >5 mg/day) may have falsely decreased Troponin levels. [facility] VITAMIN D DEFICIENCY SCREENI NG (VIT D 25)on 12-02-2023 VIT D 25-OH, TOTAL 24 ng/mL Low 30-100 [facility] Comment on above: Result Comment: TAVO Hernandez COMMENTS:Therapy is based on measurement of Total 25-OHD with the following classification levels:Less than 20 ng/mL: Indicative of Vit D [id number] ng/mL: Suggests Vit D insufficiencyOptimal: Greater than or equal to 30 ng/mLTest performed by Kerlink Competitive Immunoassay, measuring Total Vitamin D, not individual fractions. Performed By: #### L [id number] ####Nurse Research: CLARE HUGGINS ([phone])[facility] ([facility])[address] [place] [address] CARECOORDon 12-01-2023 CAR[place]OORD Normal [facility] CARECOORD Normal [facility] CBC W Auto Differential pane l (Bld)Ordered By: Nash George on 12-01-2023 Basophils (Bld) [#/Vol] 0.0 10*3/uL 0.0 - 0.2 10*3/uL [facility] Basophils/100 WBC (Bld) 0.5 % 0.0 - 2.0 % [facility] Eosinophils (Bld) [#/Vol] 0.2 10*3/uL 0.0 - 0.5 10*3/uL [facility] Eosinophils/100 WBC (Bld) 5.1 % 0.0 - 6.0 % [facility] Erythrocyte distribution width (RBC) [Ratio] 15.7 % High 11.5 - 15.0 % [facility] Hematocrit (Bld) [Volume fraction] 33.3 % Low 40.0 - 52.0 % [facility] Hemoglobin (Bld) [Mass/Vol] 10.4 g/dL Low 13.0 - 18.0 g/dL [facility] Immature granulocytes (Bld) [#/Vol] 0.0 10*3/uL NINF - 0.1 10*3/uL [facility] Immature granulocytes/100 WBC (Bld) 0.2 % 0.0 - 2.0 % [facility] Interpretation and review of laboratory results Abnormal [facility] Lymphocytes (Bld) [#/Vol] 0.9 10*3/uL Low 1.0 - 4.3 10*3/uL [facility] Lymphocytes/100 WBC (Bld) 21.8 % 15.0 - 45.0 % [facility] MCH (RBC) [Entitic mass] 29.9 pg 26. 0 - 34.0 pg [facility] MCHC (RBC) [Mass/Vol] 31.2 % 30.5 - 36.0 % [facility] MCV (RBC) [Entitic vol] 95.7 fL 77.0 - 99.0 fL [facility] Monocytes (Bld) [#/Vol] 0.5 10*3/uL 0.0 - 0.9 10*3/uL [facility] Monocytes/100 WBC (Bld) 11.3 % 5.0 - 13.0 % [facility] Neutrophils (Bld) [#/Vol] 2.6 10*3/uL 1.8 - 7.5 10*3/uL [facility] Neutrophils/100 WBC (Bld) 61.1 % 38.0 - 82.0 % [facility] Nucleated RBC/100 WBC (Bld) [Ratio] 0.0 % [facility] Platelet mean volume (Bld) [Entitic vol] 10.5 fL 9.0 - 12.7 fL [facility] Platelets (Bld) [#/Vol] 173 10*3/uL 140 - 440 10*3/uL [facility] RBC (Bld) [#/Vol] 3.48 10*6/uL Low 4.40 - 5.9 0 10*6/uL [facility] WBC (Bld) [#/Vol] 4.3 10*3/uL 3.6 - 10.7 10*3/uL [facility] CBC WITH AUTO DIFFERENTIALon 12-01-2023 Basophils (Bld) [#/Vol] 0.0 10*3/uL Normal 0.0-0.2 [facility] Comment on above: Performed By: #### L [id number] ####Nurse Research: SWATI RATLIFF ([phone])[facility] ([facility])[address] [place] [address] Basophils/100 WBC (Bld) 0.5 % Normal 0.0-2.0 [facility] Comment on above: Performed By: #### L [id number] ####Nurse Research: SWATI RATLIFF ([phone])[facility])[address] [place] [address] Eosinophils (Bld) [#/Vol] 0.2 10*3/uL Normal 0.0-0.5 [facility] Comment on above: Performed By: #### L [id number] ####Nurse Research: SWATI RATLIFF ([phone])[facility])[address] [place] [address] Eosinophils/100 WBC (Bld) 5.1 % Normal 0.0-6.0 [facility] Comment on above: Performed By: #### L [id number] ####Nurse Research: SWATI RATLIFF ([id number])[facility])[address] [place] [address] Erythrocyte distribution width (RBC) [Ratio] 15.7 % High 11.5-15.0 [facility] Comment on above: Performed By: #### L [id number] ####Nurse Research: SWATI RALTIFF ([id number])[facility])[address] [place] [address] Hematocrit (Bld) [Volume fraction] 33.3 % Low 40.0-52.0 [facility] Comment on above: Performed By: #### L [id number] ####Nurse Research: SWATI RATLIFF ([phone])[facility])[address] [place] [address] Hemoglobin (Bld) [Mass/Vol] 10.4 g/dL Low 13.0-18.0 [facility] Comment on above: Performed By: #### L [id number] ####Nurse Research: SWATI RATLIFF ([id number])[facility])[address] [place] [address] IMMATURE GRANS % 0.2 % Normal 0.0-2.0 [facility] Comment on above: Performed By: #### L [id number] ####Nurse Research: SWATI RATLIFF ([id number])[facility])[address] [place] [address] IMMATURE GRANS ABSOLUTE 0.0 10*3/uL Normal <0.1 [facility] Comment on above: Performed By: #### L [id number] ####Nurse Research: SWATI RATLIFF ([phone])[facility])[address] [place] [address] Lymphocytes (Bld) [#/Vol] 0.9 10*3/uL Low 1.0-4.3 [facility] Comment on above: Performed By: #### L [id number] ####Nurse Research: SWATI RATLIFF ([phone])[facility])[address] [place] [address] Lymphocytes/100 WBC (Bld) 21.8 % Normal 15.0-45.0 [facility] Comment on above: Performed By: #### L [id number] ####Nurse Research: SWATI RATLIFF ([id number])[facility])[address] [place] [address] MCH (RBC) [Entitic mass] 29.9 pg Normal 26.0-34.0 [facility] Comment on above: Performed By: #### L [id number] ####Nurse Research: SWATI RATLIFF ([phone])[facility] ([facility])[address] [place] [address] MCHC 31.2 % Normal 30.5-36.0 [facility] Comment on above: Performed By: #### L [id number] ####Nurse Research: SWATI RATLIFF ([phone])[facility] ([facility])[address] [place] [address] MCV (RBC) [Entitic vol] 95.7 fL Normal 77.0-99.0 [facility] Comment on above: Performed By: #### L [id number] ####Nurse Research: SWATI RATLIFF ([id number])[facility] ([facility])[address] [place] [address] Monocytes (Bld) [#/Vol] 0.5 10*3/uL Normal 0.0-0.9 [facility] Comment on above: Performed By: #### L [id number] ####Nurse Research: SWATI RATLIFF ([id number])[facility] ([facility])[address] [place] [address] Monocytes/100 WBC (Bld) 11.3 % Normal 5.0-13.0 [facility] Comment on above: Performed By: #### L [id number] ####Nurse Research: SWATI RATLIFF ([phone])[facility] ([facility])[address] [place] [address] NEUTROPHILS ABSOLUTE 2.6 10*3/uL Normal 1.8-7.5 [facility] Comment on above: Performed By: #### L [id number] ####Nurse Research: SWATI RATLIFF ([phone])[facility] ([facility])[address] [place] [address] Neutrophils/100 WBC (Bld) 61.1 % Normal 38.0-82.0 [facility] Comment on above: Performed By: #### L [id number] ####Nurse Research: SWATI RATLIFF ([phone])[facility] ([facility])[address] [place] [address] NRBC 0.0 /100 WBCs Normal 0.0-2.0 [facility] Comment on above: Performed By: #### L [id number] ####Nurse Research: SWATI RATLIFF ([phone])[facility])[address] [place] [address] Platelet mean volume (Bld) [Entitic vol] 10.5 fL Normal 9.0-12.7 [facility] Comment on above: Performed By: #### L [id number] ####Nurse Research: SWATI RATLIFF ([phone])[facility] ([facility])[address] [place] [address] Platelets (Bld) [#/Vol] 173 10*3/uL Normal 140-440 [facility] Comment on above: Performed By: #### L [id number] ####Nurse Research: SWATI RATLIFF ([phone])[facility])[address] [place] [address] RBC (Bld) [#/Vol] 3.48 10*6/uL Low 4.40-5.90 [facility] Comment on above: Performed By: #### L [id number] ####Nurse Research: SWATI RATLIFF ([phone])[facility])[address] [place] [address] WBC (Bld) [#/Vol] 4.3 10*3/uL Normal 3.6-10.7 [facility] Comment on above: Performed By: #### L [id number] ####Nurse Research: SWATI RATLIFF ([phone])[facility] ([facility])[address] [place] [address] COMPREHENSIVE METABOLIC PANE Cricket 12-01-2023 Albumin [Mass/Vol] 3.2 g/dL Low 3.5-5.0 [facility] Comment on above: Performed By: #### L [id number] ####Nurse Research: SWATI RATLIFF ([phone])[facility])[address] [place] [address] ALP [Catalytic activity/Vol] 80 U/L Normal 38-126 [facility] Comment on above: Performed By: #### L [id number] ####Nurse Research: SWATI RATLIFF ([phone])[facility] ([facility])[address] [place] [address] ALT [Catalytic activity/Vol] 15 U/L Normal 0-49 [facility] Comment on above: Performed By: #### L [id number] ####Nurse Research: SWATI RATLIFF ([phone])[facility] ([facility])[address] [place] [address] Anion gap [Moles/Vol] 5 mmol/L Normal 3-13 [facility] Comment on above: Performed By: #### L [id number] ####Nurse Research: SWATI RATLIFF ([phone])[facility] ([facility])[address] [place] [address] AST [Catalytic activity/Vol] 20 U/L Normal 15-46 [facility] Comment on above: Performed By: #### L [id number] ####Nurse Research: SWATI RATLIFF ([phone])[facility] ([facility])[address] [place] [address] Bilirubin [Mass/Vol] 0.5 mg/dL Normal 0.2-1.3 [facility] Comment on above: Performed By: #### L [id number] ####Nurse Research: SWATI RATLIFF ([phone])[facility] ([facility])[address] [place] [address] Calcium [Mass/Vol] 8.6 mg/dL Normal 8.4-10.4 [facility] Comment on above: Performed By: #### L [id number] ####Nurse Research: SWATI RATLIFF ([phone])[facility] ([facility])[address] [place] [address] [place] Chloride [Moles/Vol] 114 mmol/L High 98-107 [facility] Comment on above: Performed By: #### L [id number] ####Nurse Research: SWATI RATLIFF ([phone])[facility] ([facility])[address] [place] [address] [place] CO2 [Moles/Vol] 19 mmol/L Low 22-30 [facility] Comment on above: Performed By: #### L [id number] ####Nurse Research: SWATI RATLIFF ([phone])[facility] ([facility])[address] [place] [address] Creatinine [Mass/Vol] 1.08 mg/dL Normal 0.66-1.25 [facility] Comment on above: Performed By: #### L [id number] ####Nurse Research: SWATI RATLIFF ([phone])[facility] ([facility])[address] [place] [address] [place] GLOMERULAR FILTRATION RATE ML/MIN/1.73 SQ M.PREDICTED 75.2 mL/min/1.73m*2 Normal >60.0 [facility] Comment on above: Result Comment: Calc ulation based on the Chronic Kidney Disease Epidemiology Collaboration (CKD-EPI) equation refit without adjustment for race Performed By: #### L [id number] ####Nurse Research: SWATI RATLIFF ([phone])[facility] ([facility])[address] [place] [address] Glucose [Mass/Vol] 137 mg/dL High 70-100 [facility] Comment on above: Performed By: #### L [id number] ####Nurse Research: SWATI RATLIFF ([phone])[facility] ([facility])[address] [place] [address] [place] Potassium [Moles/Vol] 4.1 mmol/L Normal 3.5-5.1 [facility] Comment on above: Performed By: #### L [id number] ####Nurse Research: SWATI RATLIFF ([phone])[facility] ([facility])[address] [place] [address] [place] Protein [Mass/Vol] 5.6 g/dL Low 6.3-8.2 [facility] Comment on above: Performed By: #### L [id number] ####Nurse Research: SWATI RATLIFF ([phone])[facility] ([facility])[address] [place] [address] [place] Sodium [Moles/Vol] 138 mmol/L Normal 135-145 [facility] Comment on above: Performed By: #### L [id number] ####Nurse Research: SWATI RATLIFF ([phone])[address] Urea nitrogen [Mass/Vol] 25 mg/dL High 9-20 [facility] Comment on above: Performed By: #### L [id number] ####Nurse Research: SWATI RATLIFF ([phone])[facility] ([facility])[address] [place] [address] Comprehensive metabolic 1998 panelon 12-01-2023 Albumin [Mass/Vol] 3.2 g/dL Low 3.5 - 5.0 g/dL [facility] ALP [Catalytic activity/Vol] 80 U/L 38 - 126 U/L [facility] ALT [Catalytic activity/Vol] 15 U/L 0 - 49 U/L [facility] Anion gap [Moles/Vol] 5 mmol/L 3 - 13 mmol/L [facility] AST [Catalytic activity/Vol] 20 U/L 15 - 46 U/L [facility] Bilirubin [Mass/Vol] 0.5 mg/dL 0.2 - 1 .3 mg/dL [facility] Calcium [Mass/Vol] 8.6 mg/dL 8.4 - 10. 4 mg/dL [facility] Chloride [Moles/Vol] 114 mmol/L High 98 - 10 7 mmol/L [facility] CO2 [Moles/Vol] 19 mmol/L Low 22 - 30 mmol/L [facility] Creatinine [Mass/Vol] 1.08 mg/dL 0.66 - 1.25 mg/dL [facility] GFR/1.73 sq M.predicted (S/P/Bld) [Vol rate/Area] 75.2 mL/min - PINF [facility] Comment on above: Calculation based on the Chronic Kidney Disease Epidemiology Collaboration (CKD-EPI) equation refit without adjustment for race Glucose [Mass/Vol] 137 mg/dL High 70 - 100 mg/dL [facility] Interpretation and review of laboratory results Abnormal [facility] Potassium [Moles/Vol] 4.1 mmol/L 3.5 - 5.1 mmol/L [facility] Protein [Mass/Vol] 5.6 g/dL Low 6.3 - 8.2 g/dL [facility] Sodium [Moles/Vol] 138 mmol/L 135 - 145 mmol/L [facility] Urea nitrogen [Mass/Vol] 25 mg/dL High 9 - 20 mg/dL [facility] IDNon 12-01-2023 IDN Normal [facility] Laboratory - Chemistry and C hemistry - challengeon 12-01-2023 Glucose [Mass/Vol] 276 mg/dL High 70 - 100 mg/dL [facility] Glucose [Mass/Vol] 74 mg/dL 70 - 100 mg/dL [facility] Glucose [Mass/Vol] 156 mg/dL High 70 - 100 mg/dL [facility] Glucose [Mass/Vol] 124 mg/dL High 70 - 100 mg/dL [facility] MR Brain WO and W contrast Tracie Cole 12-01-2023 Patient Name: JAMES REYES : 1955 Exam Date/Time: 12/01/2023 12:30 Procedure: MR BRAIN W AND WO CONTRAST Ordering Provider: STRICKLAND HASSAN Reason For Exam: Dizziness, persistent/recurrent, cardiac or vascular cause suspected EXAMINATION: MRI of the brain with and without contrast. EXAM DATE & TIME: 12/01/2023 12:30 PM EDT INDICATION: Dizziness, persistent/recurrent, cardiac or vascular cause suspected ADDITIONAL INFORMATION: 68-year-old male with dizziness presents for evaluation COMPARISON: CT head dated 11/29/2023 LIMITATIONS: None TECHNIQUE: Transaxial, sagittal and coronal T1, transaxial fast T2, FLAIR and gradient echo along with diffusion weighted imaging was performed through the brain. Postcontrast transaxial, sagittal and coronal T1 weighted sequences were performed following administration of 12 mL of Gadavist gadolinium-based contrast. Transaxial postcontrast T1 fat-saturated images were also obtained. FINDINGS: Ventricular system and Extra-axial spaces: Generalized enlargement of the ventricles and sulci is noted without extracerebral collection with mass effect. Cerebral and cerebellar parenchyma: Periventricular foci of increased signal intensity on T2 and FLAIR are identified without mass effect or restricted diffusion, compatible with chronic microvascular ischemic change. No additional focal parenchymal enhancing or nonenhancing lesion is identified throughout the cerebrum or cerebellum. Brainstem: Normal. Sella turcica and pituitary: Normal. Vascular system: Normal signal void is noted within the major intracranial vessels. Please also see MRA findings below. Paranasal sinuses: Mucosal thickening is present in the frontal, ethmoid and sphenoid sinuses. Mastoid air cells: Normal. Orbits: Normal. [facility] RADIOLOGY [facility] Amadeo Luciano MD - 12/01/2023 [facility] 1955 [id number] Exam Date/Time: 12/01/2023 12:30 Procedure: MR BRAIN W AND WO CONTRAST Ordering Provider: STRICKLAND HASSAN Reason For Exam: Dizziness, persistent/recurrent, cardiac or vascular cause suspected EXAMINATION: MRI of the brain with and without contrast. EXAM DATE & TIME: 12/01/2023 12:30 PM EDT INDICATION: Dizziness, persistent/recurrent, cardiac or vascular cause suspected ADDITIONAL INFORMATION: 68-year-old male with dizziness presents for evaluation COMPARISON: CT head dated 11/29/2023 LIMITATIONS: None TECHNIQUE: Transaxial, sagittal and coronal T1, transaxial fast T2, FLAIR and gradient echo along with diffusion weighted imaging was performed through the brain. Postcontrast transaxial, sagittal and coronal T1 weighted sequences were performed following administration of 12 mL of Gadavist gadolinium-based contrast. Transaxial postcontrast T1 fat-saturated images were also obtained. FINDINGS: Ventricular system and Extra-axial spaces: Generalized enlargement of the ventricles and sulci is noted without extracerebral collection with mass effect. Cerebral and cerebellar parenchyma: Periventricular foci of increased signal intensity on T2 and FLAIR are identified without mass effect or restricted diffusion, compatible with chronic microvascular ischemic change. No additional focal parenchymal enhancing or nonenhancing lesion is identified throughout the cerebrum or cerebellum. Brainstem: Normal. Sella turcica and pituitary: Normal. Vascular system: Normal signal void is noted within the major intracranial vessels. Please also see MRA findings below. Paranasal sinuses: Mucosal thickening is present in the frontal, ethmoid and sphenoid sinuses. Mastoid air cells: Normal. Orbits: Normal. IMPRESSION: 1. Diminished cerebral volume and evidence of chronic white matter small vessel ischemic change without acute intracranial abnormality. No pathological post contrast enhancement. 2. Paranasal sinus disease. EXAMINATION: MR arteriography of the head. EXAM DATE & TIME: 12/01/2023 12:30 PM EDT INDICATION: Dizziness, persistent/recurrent, cardiac or vascular cause suspected ADDITIONAL INFORMATION: 68-year-old male with dizziness presents for evaluation COMPARISON: None LIMITATIONS: None TECHNIQUE: Three-dimensional gradient echo intracranial MRA sequence was performed. Maximum intensity projection images were created in various orientations. FINDINGS: Distal internal carotid arteries: Unremarkable. Anterior cerebral arteries: Unremarkable. Middle cerebral arteries: Unremarkable. Distal vertebral arteries: Unremarkable. Basilar artery: Unremarkable. Posterior cerebral arteries: There is origin of the right SATURATOR TENDER. Otherwise, unremarkable. Anterior communicating artery: Unremarkable. Posterior communicating arteries: Robustness of the right posterior communicating artery is present, in keeping with origin of the right SATURATOR TENDER. Otherwise, unremarkable. Aneurysm or vascular malformation: None identified. IMPRESSION: No acute intracranial arterial abnormality identified. EXAMINATION: MR arteriography of the neck with and without contrast. EXAM DATE & TIME: 12/01/2023 12:30 PM EDT INDICATION: Dizziness, persistent/recurrent, cardiac or vascular cause suspected ADDITIONAL INFORMATION: 68-year-old male with dizziness presents for evaluation COMPARISON: None LIMITATIONS: None TECHNIQUE: Three-dimensional gradient echo non-contrast sequence along with dynamic contrast enhanced MRA sequences were performed through the extracranial carotid arterial circulation before and following administration of 12 mL of Gadavist gadolinium-based contrast. Maximum intensity projection images were created in various orientations. Measurement of carotid stenosis is a ratio based on conventional angiographic data from the NASCET trials with the smallest caliber of the internal carotid as the numerator and normal post-stenotic internal carotid caliber as denominator. FINDINGS: Aortic arch and great vessel origins: Unremarkable. Right common and external carotid: Unremarkable. Right internal carotid: No significant stenosis identified with less than 30 percent luminal narrowing. Left common and external carotid: Unremarkable. Left internal carotid: No significant stenosis identified with less than 30 percent luminal narrowing. Vertebral arteries: Unremarkable. IMPRESSION: 1. No hemodynamically significant internal carotid stenosis. 2. Patent vertebral arteries. Report Dictated on Electronically Signed By: Amadeo Luciano MD Electronically Signed Date/Time: 12/01/2023 1:27 PM EDT [facility] MRA Head vessels WO contrast on 12-01-2023 Patient Name: JAMES REYES : 1955 Exam Date/Time: 12/01/2023 12:30 Procedure: MR HEAD ANGIO WO IV CONTRAST Ordering Provider: STRICKLAND HASSAN Reason For Exam: Dizziness, persistent/recurrent, cardiac or vascular cause suspected EXAMINATION: MRI of the brain with and without contrast. EXAM DATE & TIME: 12/01/2023 12:30 PM EDT INDICATION: Dizziness, persistent/recurrent, cardiac or vascular cause suspected ADDITIONAL INFORMATION: 68-year-old male with dizziness presents for evaluation COMPARISON: CT head dated 11/29/2023 LIMITATIONS: None TECHNIQUE: Transaxial, sagittal and coronal T1, transaxial fast T2, FLAIR and gradient echo along with diffusion weighted imaging was performed through the brain. Postcontrast transaxial, sagittal and coronal T1 weighted sequences were performed following administration of 12 mL of Gadavist gadolinium-based contrast. Transaxial postcontrast T1 fat-saturated images were also obtained. FINDINGS: Ventricular system and Extra-axial spaces: Generalized enlargement of the ventricles and sulci is noted without extracerebral collection with mass effect. Cerebral and cerebellar parenchyma: Periventricular foci of increased signal intensity on T2 and FLAIR are identified without mass effect or restricted diffusion, compatible with chronic microvascular ischemic change. No additional focal parenchymal enhancing or nonenhancing lesion is identified throughout the cerebrum or cerebellum. Brainstem: Normal. Sella turcica and pituitary: Normal. Vascular system: Normal signal void is noted within the major intracranial vessels. Please also see MRA findings below. Paranasal sinuses: Mucosal thickening is present in the frontal, ethmoid and sphenoid sinuses. Mastoid air cells: Normal. Orbits: Normal. [facility] RADIOLOGY [facility] Amadeo Luciano MD - 12/01/2023 Patient Name: JAMES REYES : 1955 Exam Date/Time: 12/01/2023 12:30 Procedure: MR HEAD ANGIO WO IV CONTRAST Ordering Provider: STRICKLAND HASSAN Reason For Exam: Dizziness, persistent/recurrent, cardiac or vascular cause suspected EXAMINATION: MRI of the brain with and without contrast. EXAM DATE & TIME: 12/01/2023 12:30 PM EDT INDICATION: Dizziness, persistent/recurrent, cardiac or vascular cause suspected ADDITIONAL INFORMATION: 68-year-old male with dizziness presents for evaluation COMPARISON: CT head dated 11/29/2023 LIMITATIONS: None TECHNIQUE: Transaxial, sagittal and coronal T1, transaxial fast T2, FLAIR and gradient echo along with diffusion weighted imaging was performed through the brain. Postcontrast transaxial, sagittal and coronal T1 weighted sequences were performed following administration of 12 mL of Gadavist gadolinium-based contrast. Transaxial postcontrast T1 fat-saturated images were also obtained. FINDINGS: Ventricular system and Extra-axial spaces: Generalized enlargement of the ventricles and sulci is noted without extracerebral collection with mass effect. Cerebral and cerebellar parenchyma: Periventricular foci of increased signal intensity on T2 and FLAIR are identified without mass effect or restricted diffusion, compatible with chronic microvascular ischemic change. No additional focal parenchymal enhancing or nonenhancing lesion is identified throughout the cerebrum or cerebellum. Brainstem: Normal. Sella turcica and pituitary: Normal. Vascular system: Normal signal void is noted within the major intracranial vessels. Please also see MRA findings below. Paranasal sinuses: Mucosal thickening is present in the frontal, ethmoid and sphenoid sinuses. Mastoid air cells: Normal. Orbits: Normal. IMPRESSION: 1. Diminished cerebral volume and evidence of chronic white matter small vessel ischemic change without acute intracranial abnormality. No pathological post contrast enhancement. 2. Paranasal sinus disease. EXAMINATION: MR arteriography of the head. EXAM DATE & TIME: 12/01/2023 12:30 PM EDT INDICATION: Dizziness, persistent/recurrent, cardiac or vascular cause suspected ADDITIONAL INFORMATION: 68-year-old male with dizziness presents for evaluation COMPARISON: None LIMITATIONS: None TECHNIQUE: Three-dimensional gradient echo intracranial MRA sequence was performed. Maximum intensity projection images were created in various orientations. FINDINGS: Distal internal carotid arteries: Unremarkable. Anterior cerebral arteries: Unremarkable. Middle cerebral arteries: Unremarkable. Distal vertebral arteries: Unremarkable. Basilar artery: Unremarkable. Posterior cerebral arteries: There is origin of the right SATURATOR TENDER. Otherwise, unremarkable. Anterior communicating artery: Unremarkable. Posterior communicating arteries: Robustness of the right posterior communicating artery is present, in keeping with origin of the right SATURATOR TENDER. Otherwise, unremarkable. Aneurysm or vascular malformation: None identified. IMPRESSION: No acute intracranial arterial abnormality identified. EXAMINATION: MR arteriography of the neck with and without contrast. EXAM DATE & TIME: 12/01/2023 12:30 PM EDT INDICATION: Dizziness, persistent/recurrent, cardiac or vascular cause suspected ADDITIONAL INFORMATION: 68-year-old male with dizziness presents for evaluation COMPARISON: None LIMITATIONS: None TECHNIQUE: Three-dimensional gradient echo non-contrast sequence along with dynamic contrast enhanced MRA sequences were performed through the extracranial carotid arterial circulation before and following administration of 12 mL of Gadavist gadolinium-based contrast. Maximum intensity projection images were created in various orientations. Measurement of carotid stenosis is a ratio based on conventional angiographic data from the NASCET trials with the smallest caliber of the internal carotid as the numerator and normal post-stenotic internal carotid caliber as denominator. FINDINGS: Aortic arch and great vessel origins: Unremarkable. Right common and external carotid: Unremarkable. Right internal carotid: No significant stenosis identified with less than 30 percent luminal narrowing. Left common and external carotid: Unremarkable. Left internal carotid: No significant stenosis identified with less than 30 percent luminal narrowing. Vertebral arteries: Unremarkable. IMPRESSION: 1. No hemodynamically significant internal carotid stenosis. 2. Patent vertebral arteries. Report Dictated on Electronically Signed By: Amadeo Luciano MD Electronically Signed Date/Time: 12/01/2023 1:27 PM EDT [facility] Ne[facility] WO and W co ntrast Marisa 12-01-2023 [facility] 1955 [id number] Exam Date/Time: 12/01/2023 12:30 Procedure: MR NECK ANGIO W AND WO IV CONTRAST Ordering Provider: STRICKLAND HASSAN Reason For Exam: Dizziness, persistent/recurrent, cardiac or vascular cause suspected EXAMINATION: MRI of the brain with and without contrast. EXAM DATE & TIME: 12/01/2023 12:30 PM EDT INDICATION: Dizziness, persistent/recurrent, cardiac or vascular cause suspected ADDITIONAL INFORMATION: 68-year-old male with dizziness presents for evaluation COMPARISON: CT head dated 11/29/2023 LIMITATIONS: None TECHNIQUE: Transaxial, sagittal and coronal T1, transaxial fast T2, FLAIR and gradient echo along with diffusion weighted imaging was performed through the brain. Postcontrast transaxial, sagittal and coronal T1 weighted sequences were performed following administration of 12 mL of Gadavist gadolinium-based contrast. Transaxial postcontrast T1 fat-saturated images were also obtained. FINDINGS: Ventricular system and Extra-axial spaces: Generalized enlargement of the ventricles and sulci is noted without extracerebral collection with mass effect. Cerebral and cerebellar parenchyma: Periventricular foci of increased signal intensity on T2 and FLAIR are identified without mass effect or restricted diffusion, compatible with chronic microvascular ischemic change. No additional focal parenchymal enhancing or nonenhancing lesion is identified throughout the cerebrum or cerebellum. Brainstem: Normal. Sella turcica and pituitary: Normal. Vascular system: Normal signal void is noted within the major intracranial vessels. Please also see MRA findings below. Paranasal sinuses: Mucosal thickening is present in the frontal, ethmoid and sphenoid sinuses. Mastoid air cells: Normal. Orbits: Normal. [facility] RADIOLOGY [facility] Amadeo Luciano MD - 12/01/2023 [facility] Name: [facility]EE[facility] : 1955 [id number] Exam Date/Time: 12/01/2023 12:30 Procedure: MR NECK ANGIO W AND WO IV CONTRAST Ordering Provider: STRICKLAND HASSAN Reason For Exam: Dizziness, persistent/recurrent, cardiac or vascular cause suspected EXAMINATION: MRI of the brain with and without contrast. EXAM DATE & TIME: 12/01/2023 12:30 PM EDT INDICATION: Dizziness, persistent/recurrent, cardiac or vascular cause suspected ADDITIONAL INFORMATION: 68-year-old male with dizziness presents for evaluation COMPARISON: CT head dated 11/29/2023 LIMITATIONS: None TECHNIQUE: Transaxial, sagittal and coronal T1, transaxial fast T2, FLAIR and gradient echo along with diffusion weighted imaging was performed through the brain. Postcontrast transaxial, sagittal and coronal T1 weighted sequences were performed following administration of 12 mL of Gadavist gadolinium-based contrast. Transaxial postcontrast T1 fat-saturated images were also obtained. FINDINGS: Ventricular system and Extra-axial spaces: Generalized enlargement of the ventricles and sulci is noted without extracerebral collection with mass effect. Cerebral and cerebellar parenchyma: Periventricular foci of increased signal intensity on T2 and FLAIR are identified without mass effect or restricted diffusion, compatible with chronic microvascular ischemic change. No additional focal parenchymal enhancing or nonenhancing lesion is identified throughout the cerebrum or cerebellum. Brainstem: Normal. Sella turcica and pituitary: Normal. Vascular system: Normal signal void is noted within the major intracranial vessels. Please also see MRA findings below. Paranasal sinuses: Mucosal thickening is present in the frontal, ethmoid and sphenoid sinuses. Mastoid air cells: Normal. Orbits: Normal. IMPRESSION: 1. Diminished cerebral volume and evidence of chronic white matter small vessel ischemic change without acute intracranial abnormality. No pathological post contrast enhancement. 2. Paranasal sinus disease. EXAMINATION: MR arteriography of the head. EXAM DATE & TIME: 12/01/2023 12:30 PM EDT INDICATION: Dizziness, persistent/recurrent, cardiac or vascular cause suspected ADDITIONAL INFORMATION: 68-year-old male with dizziness presents for evaluation COMPARISON: None LIMITATIONS: None TECHNIQUE: Three-dimensional gradient echo intracranial MRA sequence was performed. Maximum intensity projection images were created in various orientations. FINDINGS: Distal internal carotid arteries: Unremarkable. Anterior cerebral arteries: Unremarkable. Middle cerebral arteries: Unremarkable. Distal vertebral arteries: Unremarkable. Basilar artery: Unremarkable. Posterior cerebral arteries: There is origin of the right SATURATOR TENDER. Otherwise, unremarkable. Anterior communicating artery: Unremarkable. Posterior communicating arteries: Robustness of the right posterior communicating artery is present, in keeping with origin of the right SATURATOR TENDER. Otherwise, unremarkable. Aneurysm or vascular malformation: None identified. IMPRESSION: No acute intracranial arterial abnormality identified. EXAMINATION: MR arteriography of the neck with and without contrast. EXAM DATE & TIME: 12/01/2023 12:30 PM EDT INDICATION: Dizziness, persistent/recurrent, cardiac or vascular cause suspected ADDITIONAL INFORMATION: 68-year-old male with dizziness presents for evaluation COMPARISON: None LIMITATIONS: None TECHNIQUE: Three-dimensional gradient echo non-contrast sequence along with dynamic contrast enhanced MRA sequences were performed through the extracranial carotid arterial circulation before and following administration of 12 mL of Gadavist gadolinium-based contrast. Maximum intensity projection images were created in various orientations. Measurement of carotid stenosis is a ratio based on conventional angiographic data from the NASCET trials with the smallest caliber of the internal carotid as the numerator and normal post-stenotic internal carotid caliber as denominator. FINDINGS: Aortic arch and great vessel origins: Unremarkable. Right common and external carotid: Unremarkable. Right internal carotid: No significant stenosis identified with less than 30 percent luminal narrowing. Left common and external carotid: Unremarkable. Left internal carotid: No significant stenosis identified with less than 30 percent luminal narrowing. Vertebral arteries: Unremarkable. IMPRESSION: 1. No hemodynamically significant internal carotid stenosis. 2. Patent vertebral arteries. Report Dictated on Electronically Signed By: Amadeo Luciano MD Electronically Signed Date/Time: 12/01/2023 1:27 PM EDT [employer] No Panel Informationon 11-30 Interpretation and review of laboratory results Abnormal [facility] Performed by: [employer] [facility], [address] [place] [id number] CLIA ID: [id number] [facility] Interpretation and review of laboratory results Normal [facility] Performed by: [employer] [facility], [address] [place] [address], [facility] [address] CLIA ID: [id number] [facility] 1. Diminished cerebr al volume and evidence of chronic white matter small vessel ischemic change without acute intracranial abnormality. No pathological post contrast enhancement. 2. Paranasal sinus disease. EXAMINATION: MR arteriography of the head. EXAM DATE & TIME: 12/01/2023 12:30 PM EDT INDICATION: Dizziness, persistent/recurrent, cardiac or vascular cause suspected ADDITIONAL INFORMATION: 68-year-old male with dizziness presents for evaluation COMPARISON: None LIMITATIONS: None TECHNIQUE: Three-dimensional gradient echo intracranial MRA sequence was performed. Maximum intensity projection images were created in various orientations. FINDINGS: Distal internal carotid arteries: Unremarkable. Anterior cerebral arteries: Unremarkable. Middle cerebral arteries: Unremarkable. Distal vertebral arteries: Unremarkable. Basilar artery: Unremarkable. Posterior cerebral arteries: There is origin of the right SATURATOR TENDER. Otherwise, unremarkable. Anterior communicating artery: Unremarkable. Posterior communicating arteries: Robustness of the right posterior communicating artery is present, in keeping with origin of the right SATURATOR TENDER. Otherwise, unremarkable. Aneurysm or vascular malformation: None identified. IMPRESSION: No acute intracranial arterial abnormality identified. EXAMINATION: MR arteriography of the neck with and without contrast. EXAM DATE & TIME: 12/01/2023 12:30 PM EDT INDICATION: Dizziness, persistent/recurrent, cardiac or vascular cause suspected ADDITIONAL INFORMATION: 68-year-old male with dizziness presents for evaluation COMPARISON: None LIMITATIONS: None TECHNIQUE: Three-dimensional gradient echo non-contrast sequence along with dynamic contrast enhanced MRA sequences were performed through the extracranial carotid arterial circulation before and following administration of 12 mL of Gadavist gadolinium-based contrast. Maximum intensity projection images were created in various orientations. Measurement of carotid stenosis is a ratio based on conventional angiographic data from the NASCET trials with the smallest caliber of the internal carotid as the numerator and normal post-stenotic internal carotid caliber as denominator. FINDINGS: Aortic arch and great vessel origins: Unremarkable. Right common and external carotid: Unremarkable. Right internal carotid: No significant stenosis identified with less than 30 percent luminal narrowing. Left common and external carotid: Unremarkable. Left internal carotid: No significant stenosis identified with less than 30 percent luminal narrowing. Vertebral arteries: Unremarkable. IMPRESSION: 1. No hemodynamically significant internal carotid stenosis. 2. Patent vertebral arteries. Report Dictated on Electronically Signed By: Amadeo Luciano MD Electronically Signed Date/Time: 12/01/2023 1:27 PM EDT [facility] RADIOLOGY SYSTEM Interpretation and review of laboratory results Abnormal [facility] Performed by: [facility] [employer] [facility] [employer], [address] [place] [address] CLIA ID: [id number] [facility] Radiology Study observation (narrative) [facility] Interpretation and review of laboratory results Abnormal [facility] Performed by: [facility] [employer] [facility], [address] [place] [address] CLIA ID: [id number] [facility] No Panel InformationOrdered By: Amadeo Luciano on 12-01-2023 [facility] Work Phone: Progress Noteon 12-01-2023 Progress Note Normal [facility] Progress Note Nutrition rescreen completed. Patient referred to the Dietitian due to DM uncontrolled (HgA1c = 8.5). RAGHAV Lopez Normal [facility] Progress Note Normal [facility] Progress Note Normal [facility] CARECOORDon 11-30-2023 CARECOORD Normal [facility] CARECOORD Spoke to Oralia MEDINA. Pt follows with PCP Dr.[facility] [phone] Normal [facility] CBC (HEMOGRAM)on 11-30-2023 Erythrocyte distribution width (RBC) [Ratio] 15.6 % High 11.5-15.0 [facility] Comment on above: Performed By: #### L [id number] ####Nurse Research: SWATI RATLIFF ([phone])[facility] ([facility])[address] [place] [address] Hematocrit (Bld) [Volume fraction] 34.5 % Low 40.0-52.0 [facility] Comment on above: Performed By: #### L [id number] ####Nurse Research: SWATI RATLIFF ([phone])[facility])[address] [place] [address] Hemoglobin (Bld) [Mass/Vol] 10.9 g/dL Low 13.0-18.0 [facility] Comment on above: Performed By: #### L [id number] ####Nurse Research: SWATI RATLIFF ([phone])[facility])[address] [place] [address] MCH (RBC) [Entitic mass] 30.6 pg Normal 26.0-34.0 [facility] Comment on above: Performed By: #### L [id number] ####Nurse Research: SWATI RATLIFF ([phone])[facility] ([facility])[address] [place] [address] MCHC 31.6 % Normal 30.5-36.0 [facility] Comment on above: Performed By: #### L [id number] ####Nurse Research: SWATI RATLIFF ([phone])[facility])[address] [place] [address] MCV (RBC) [Entitic vol] 96.9 fL Normal 77.0-99.0 [facility] Comment on above: Performed By: #### L [id number] ####Nurse Research: SWATI RATLIFF ([phone])[facility])[address] [place] [address] Platelet mean volume (Bld) [Entitic vol] 10.4 fL Normal 9.0-12.7 [facility] Comment on above: Performed By: #### L [id number] ####Nurse Research: SWATI RATLIFF ([id number])[facility] ([address] Platelets (Bld) [#/Vol] 191 10*3/uL Normal 140-440 [facility] Comment on above: Performed By: #### L [id number] ####Nurse Research: SWATI RATLIFF ([phone])[facility])[address] [place] [address] RBC (Bld) [#/Vol] 3.56 10*6/uL Low 4.40-5.90 [facility] Comment on above: Performed By: #### L [id number] ####Nurse Research: SWATI RATLIFF ([phone])[address] WBC (Bld) [#/Vol] 5.1 10*3/uL Normal 3.6-10.7 [facility] Comment on above: Performed By: #### L [id number] ####Nurse Research: SWATI RATLIFF ([phone])[facility] ([facility])[address] [place] [address] CBC panel Auto (Bld)on 11-29 Erythrocyte distribution width (RBC) [Ratio] 15.6 % High 11.5 - 15.0 % [facility] Hematocrit (Bld) [Volume fraction] 34.5 % Low 40.0 - 52.0 % [facility] Hemoglobin (Bld) [Mass/Vol] 10.9 g/dL Low 13.0 - 18.0 g/dL [facility] Interpretation and review of laboratory results Abnormal [facility] MCH (RBC) [Entitic mass] 30.6 pg 26. 0 - 34.0 pg [facility] MCHC (RBC) [Mass/Vol] 31.6 % 30.5 - 36.0 % [facility] MCV (RBC) [Entitic vol] 96.9 fL 77.0 - 99.0 fL [facility] Platelet mean volume (Bld) [Entitic vol] 10.4 fL 9.0 - 12.7 fL [facility] Platelets (Bld) [#/Vol] 191 10*3/uL 140 - 440 10*3/uL [facility] RBC (Bld) [#/Vol] 3.56 10*6/uL Low 4.40 - 5.9 0 10*6/uL [facility] WBC (Bld) [#/Vol] 5.1 10*3/uL 3.6 - 10.7 10*3/uL [facility] COMPREHENSIVE METABOLIC PANE Cricket 11-30-2023 Albumin [Mass/Vol] 3.2 g/dL Low 3.5-5.0 [facility] Comment on above: Performed By: #### L AB17, [id number], LAB67, LAB18, LAB69, [id number] ####Nurse Research: SWATI RATLIFF ([id number])[facility] ([facility])[address] [place] [address] ALP [Catalytic activity/Vol] 81 U/L Normal 38-126 [facility] Comment on above: Performed By: #### L AB17, [id number], LAB67, LAB18, LAB69, [id number] ####Nurse Research: SWATI RATLIFF ([phone])[facility] ([facility])[address] [place] [address] ALT [Catalytic activity/Vol] 13 U/L Normal 0-49 [facility] Comment on above: Performed By: #### L AB17, [id number], LAB67, LAB18, LAB69, [id number] ####Nurse Research: SWATI RATLIFF ([phone])[facility] ([facility])[address] [place] [address] Anion gap [Moles/Vol] 5 mmol/L Normal 3-13 [facility] Comment on above: Performed By: #### L AB17, [id number], LAB67, LAB18, LAB69, EFL206 ####Nurse Research: SWATI RATLIFF ([phone])[facility] ([facility])[address] [place] [address] AST [Catalytic activity/Vol] 19 U/L Normal 15-46 [facility] Comment on above: Performed By: #### L AB17, [id number], LAB67, LAB18, LAB69, [id number] ####Nurse Research: SWATI RATLIFF ([phone])[facility])[address] [place] [address] Bilirubin [Mass/Vol] 0.5 mg/dL Normal 0.2-1.3 [facility] Comment on above: Performed By: #### L AB17, [id number], LAB67, LAB18, LAB69, [id number] ####Nurse Research: SWATI RATLIFF ([phone])[facility] ([facility])[address] [place] [address] Calcium [Mass/Vol] 8.8 mg/dL Normal 8.4-10.4 [facility] Comment on above: Performed By: #### L AB17, [id number], LAB67, LAB18, LAB69, [id number] ####Nurse Research: SWATI RATLIFF ([id number])[facility] ([facility])[address] [place] [address] Chloride [Moles/Vol] 115 mmol/L High 98-107 [facility] Comment on above: Performed By: #### L AB17, [id number], LAB67, LAB18, LAB69, [id number] ####Nurse Research: SWATI RATLIFF ([phone])[facility])[address] [place] [address] CO2 [Moles/Vol] 19 mmol/L Low 22-30 [facility] Comment on above: Performed By: #### L AB17, [id number], LAB67, LAB18, LAB69, AHI180 ####Nurse Research: SWATI RATLIFF ([phone])[facility] ([facility])[address] [place] [address] Creatinine [Mass/Vol] 1.05 mg/dL Normal 0.66-1.25 [facility] Comment on above: Performed By: #### L AB17, PCS253, LAB67, LAB18, LAB69, XIA437 ####Nurse Research: SWATI RATLIFF ([phone])[facility] ([facility])[address] [place] [address] GLOMERULAR FILTRATION RATE ML/MIN/1.73 SQ M.PREDICTED 77.8 mL/min/1.73m*2 Normal >60.0 [facility] Comment on above: Result Comment: Calc ulation based on the Chronic Kidney Disease Epidemiology Collaboration (CKD-EPI) equation refit without adjustment for race Performed By: #### L AB17, [id number], LAB67, LAB18, LAB69, ATM569 ####Nurse Research: SWATI RATLIFF ([phone])[facility])[address] [place] [address] Glucose [Mass/Vol] 121 mg/dL High 70-100 [facility] Comment on above: Performed By: #### L AB17, RKE935, LAB67, LAB18, LAB69, LEH275 ####Nurse Research: SWATI RATLIFF ([phone])[facility])[address] [place] [address] Potassium [Moles/Vol] 3.9 mmol/L Normal 3.5-5.1 [facility] Comment on above: Performed By: #### L AB17, API066, LAB67, LAB18, LAB69, ZOG984 ####Nurse Research: SWATI RATLIFF ([phone])[facility])[address] [place] [address] Protein [Mass/Vol] 5.7 g/dL Low 6.3-8.2 [facility] Comment on above: Performed By: #### L AB17, MOZ877, LAB67, LAB18, LAB69, IBA380 ####Nurse Research: SWATI RATLIFF ([phone])[facility] ([facility])[address] [place] [address] Sodium [Moles/Vol] 138 mmol/L Normal 135-145 [facility] Comment on above: Performed By: #### L AB17, [id number], LAB67, LAB18, LAB69, ZDY833 ####Nurse Research: SWATI RATLIFF ([phone])[facility])[address] [place] [address] [place] Urea nitrogen [Mass/Vol] 27 mg/dL High 9-20 [facility] Comment on above: Performed By: #### L AB17, [id number], LAB67, LAB18, LAB69, QJD325 ####Nurse Research: SWATI RATLIFF ([phone])[facility] ([address] Cobalamin (Vitamin B12) [Mas s/Vol]on 11-30-2023 Interpretation and review of laboratory results Abnormal [facility] Comprehensive metabolic 1998 panelon 11-30-2023 Albumin [Mass/Vol] 3.2 g/dL Low 3.5 - 5.0 g/dL [facility] ALP [Catalytic activity/Vol] 81 U/L 38 - 126 U/L [facility] ALT [Catalytic activity/Vol] 13 U/L 0 - 49 U/L [facility] Anion gap [Moles/Vol] 5 mmol/L 3 - 13 mmol/L [facility] AST [Catalytic activity/Vol] 19 U/L 15 - 46 U/L [facility] Bilirubin [Mass/Vol] 0.5 mg/dL 0.2 - 1 .3 mg/dL [facility] Calcium [Mass/Vol] 8.8 mg/dL 8.4 - 10. 4 mg/dL [facility] Chloride [Moles/Vol] 115 mmol/L High 98 - 10 7 mmol/L [facility] CO2 [Moles/Vol] 19 mmol/L Low 22 - 30 mmol/L [facility] Creatinine [Mass/Vol] 1.05 mg/dL 0.66 - 1.25 mg/dL [facility] GFR/1.73 sq M.predicted (S/P/Bld) [Vol rate/Area] 77.8 mL/min - PINF [facility] Comment on above: Calculation based on the Chronic Kidney Disease Epidemiology Collaboration (CKD-EPI) equation refit without adjustment for race Glucose [Mass/Vol] 121 mg/dL High 70 - 100 mg/dL [facility] Potassium [Moles/Vol] 3.9 mmol/L 3.5 - 5.1 mmol/L [facility] Protein [Mass/Vol] 5.7 g/dL Low 6.3 - 8.2 g/dL [facility] Sodium [Moles/Vol] 138 mmol/L 135 - 145 mmol/L [facility] Urea nitrogen [Mass/Vol] 27 mg/dL High 9 - 20 mg/dL [facility] Consulton 11-30-2023 Consult Normal [facility] ECG 12-LEADon 11-30-2023 ECG 12-LEAD IMPRESSION: Sinus rhythm Prolonged [place] interval Nonspecific IVCD with LAD Abnormal T, consider ischemia, lateral leads Compared to ECG 04/24/23 No significant change Electronically Signed On 11-30-2023 00:44:00 EDT by Sergio Ruff Normal [facility] FOLATEon 11-30-2023 FOLATE RESULT 3.7 ng/mL Normal >=2.9 [facility] Comment on above: Performed By: #### L AB17, XBT304, LAB67, LAB18, LAB69, QHD443 ####Nurse Research: SWATI RATLIFF ([phone])[facility])[address] [place] [address] Folate [Mass/Vol]on 11-30-19 Interpretation and review of laboratory results Normal [facility] HEMOGLOBIN A1Con 11-30-2023 Glucose [Mass/Vol] 197 mg/dL Normal [facility] Comment on above: Performed By: #### L AB90 ####Nurse Research: SWATI RATLIFF ([phone])[facility] ([facility])[address] [place] [address] HbA1c (Bld) [Mass fraction] 8.5 % High <5.7 [facility] Comment on above: Result Comment: Norm al less than 5.7%Prediabetes 5.7% to 6.4%Diabetes 6.5% or higher--HgbA1C levels may not be accurate in patients who have renal disease, received recent blood transfusions, are anemic, or who have dyshemoglobinemia. Performed By: #### L AB90 ####Nurse Research: SWATI RATLIFF ([phone])[facility] ([facility])[address] [place] [address] [place] IDNon 11-30-2023 IDN Normal [facility] LIPID PANELon 11-30-2023 Cholesterol [Mass/Vol] 108 mg/dL Normal <200 [facility] Comment on above: Performed By: #### L AB17, [id number], LAB67, LAB18, LAB69, [id number] ####Nurse Research: SWATI RATLIFF ([phone])[facility] ([facility])[address] [place] [address] Cholesterol in HDL [Mass/Vol] 42 mg/dL Normal 40-60 [facility] Comment on above: Performed By: #### L AB17, [id number], LAB67, LAB18, LAB69, [id number] ####Nurse Research: SWATI RATLIFF ([id number])[facility] ([facility])[address] [place] [address] Cholesterol.total/Choles terol in HDL [Mass ratio] 3 {ratio} Normal [facility] Comment on above: Result Comment: Ref Range:< 3 Low Risk for CHD3-6 Mod Risk for CHD> 6 High Risk for CHD Performed By: #### L AB17, [id number], LAB67, LAB18, LAB69, QIS088 ####Nurse Research: SWATI RATLIFF ([phone])[facility] ([facility])[address] [place] [address] LOW DENSITY LIPOPROTEIN 33 mg/dL Normal 0-<100 [facility] Comment on above: Performed By: #### L AB17, [id number], LAB67, LAB18, LAB69, [id number] ####Nurse Research: SWATI RATLIFF ([phone])[facility] ([facility])[address] [place] [address] Triglyceride [Mass/Vol] 166 mg/dL High <150 [facility] Comment on above: Performed By: #### L AB17, HIX139, LAB67, LAB18, LAB69, RTZ361 ####Nurse Research: SWATI RATLIFF ([phone])[facility] ([facility])[address] [place] [address] Laboratory - Chemistry and C hemistry - challengeon 11-30-2023 Glucose [Mass/Vol] 200 mg/dL High 70 - 100 mg/dL [facility] Glucose [Mass/Vol] 139 mg/dL High 70 - 100 mg/dL [facility] Glucose [Mass/Vol] 124 mg/dL High 70 - 100 mg/dL [facility] Cobalamin (Vitamin B12) [Mass/Vol] 167 pg/mL Low 239 - 931 pg/mL [facility] Folate [Mass/Vol] 3.7 ng/mL 2.9 - PINF ng/mL [facility] TSH Qn 1.209 m[IU]/[facility] Gl[facility] [Mass/Vol] 139 mg/dL High 70 - 100 mg/dL [facility] Troponin I.cardiac [Mass/Vol] ng/mL [facility]/mL [facility] Average glucose Estimated from glycated hemoglobin (Bld) [Mass/Vol] 197 mg/dL [facility] Troponin I.cardiac [Mass/Vol] ng/mL [facility] 0.034 ng/mL [facility] Laboratory - Hematology and Cell countson 11-30-2023 HbA1c (Bld) [Mass fraction] 8.5 % High [facility] - 5.7 % [facility] Comment on above: Normal less than 5.7 % Prediabetes 5.7% to 6.4% Diabetes 6.5% or higher --HgbA1C levels may not be accurate in patients who have renal disease, received recent blood transfusions, are anemic, or who have dyshemoglobinemia. Lipid 1996 panelon 4 Cholesterol [Mass/Vol] 108 mg/dL NINF - 200 mg/dL [facility] Cholesterol in HDL [Mass/Vol] 42 mg/dL 40 - 60 mg/dL [facility] Cholesterol in LDL [Mass/Vol] 33 mg/dL 0 - <100 [facility] Cholesterol.total/Choles terol in HDL [Mass ratio] 3 {ratio} [facility] Comment on above: Ref Range: < 3 Low Risk for CHD 3-6 Mod Risk for CHD > 6 High Risk for CHD Triglyceride [Mass/Vol] 166 mg/dL High NINF - 150 mg/dL [facility] No Panel Informationon 11-29 Interpretation and review of laboratory results Abnormal [facility] Performed by: [facility], [address] [place] [address] CLIA ID: [id number] [facility] Interpretation and review of laboratory results Abnormal [facility] Performed by: [facility], [address] [place] [id number] CLIA ID: [id number] [facility] Interpretation and review of laboratory results Abnormal [facility] Performed by: [facility], [address] [place] [id number] CLIA ID: [id number] [facility] Interpretation and review of laboratory results Abnormal [facility] Performed by: [facility], [address], [facility] [address] CLIA ID: [id number] [facility] Interpretation and review of laboratory results Abnormal [facility] Interpretation and review of laboratory results Abnormal [facility] P Meyers Chuck 13 degrees [facility] [place] Interval 230 ms [facility] QRS Meyers Chuck -44 degrees [facility] QRSD [facility]val [facility]val 457 ms [facility] QTC Interval 439 ms [facility] T Wave [place] 122 degrees [facility] Sinus rhythm Prolonged [place] interval Nonspecific IVCD with LAD Abnormal T, consider ischemia, lateral leads Compared to ECG 04/24/23 No significant change Electronically Signed On 11-30-2023 00:44:00 EDT by Sergio Recinos D O - 11/30/2023 IMPRESSION: Sinus rhythm Prolonged [place] interval Nonspecific IVCD with LAD Abnormal T, consider ischemia, lateral leads Compared to ECG 04/24/23 No significant change Electronically Signed On 11-30-2023 00:44:00 EDT by Sergio Ruff [facility] Nursing Noteon 11-30-2023 Nursing Note Wound Care arrived t o pt's room for Prevention consult, but pt not in room at present time. Will return as time permits. Please Voicera for any questions or concerns. Kaycee Ricardo, RN Normal [facility] Nursing Note Krissy from [place] [facility] called and states James needs to return to baseline before he can return to us, he is usually independent with ADL's and walks safely with his rollator." Krissy's direct line [phone]. Normal [facility] Progress Noteon 11-30-2023 Progress Note Normal [facility] Progress Note Normal [facility] Progress Note PHYSICAL THERAPY [facility] Name/MRN: James Reyes ([id number]) Date: 11/30/2023 Multiple attempts made throughout the day, pt receiving echo, lunch, and OOR. Will attempt as able. Kyle Moreland, PT [facility] Progress Note Speech-Language Pathology Patient passed the Nursing Swallowing Screening and is on a Regular diet, Cardiac: Low fat, Low cholesterol. High Fiber, DEBBIE with Thin liquids. Completed speech orders as per stroke protocol. Normal [facility] Progress Note OCCUPATIONAL THERAPY [facility] Name/MRN: James Reyes ([id number]) Date: 11/30/2023 Performed chart review. Attempted OT eval 10:59 patient is getting Echo completed bedside. Will return to evaluate as schedule permits. Darlin Corea, OT [facility] Progress Note Patient seen and examined at bedside. Refer to Dr. King H&P for further details. See new orders. Flori Strickland MD Division of Hospitalist Medicine Acute [facility] THYROID STIMULATING HORMONEo n 11-30-2023 THYROID STIMULATING HORMONE 1.209 uIU/mL Normal 0.465-4.680 [facility] Comment on above: Performed By: #### L [id number], [id number], LAB67, LAB18, LAB69, [id number] ####Nurse Research: SWATI RATLIFF ([id number])[facility] ([facility])[address] [place] [address] [place] TROPONIN Ion 11-30-2023 Troponin I.cardiac [Mass/Vol] ng/mL Normal <0.034 [facility] Comment on above: Result Comment: TAVO Hernandez COMMENTS:Patients with high levels of Biotin oral intake (ie >5 mg/day) may have falsely decreased Troponin levels. Performed By: #### L AB17, [id number], LAB67, LAB18, LAB69, [id number] ####Nurse Research: SWATI RATLIFF ([id number])[facility] ([facility])[address] [place] [address] [place] TROPONIN, WITH SERIAL REFLEX on 11-30-2023 Troponin I.cardiac [Mass/Vol] ng/mL Normal <0.034 [facility] Comment on above: Result Comment: TAVO Hernandez COMMENTS:Patients with high levels of Biotin oral intake (ie >5 mg/day) may have falsely decreased Troponin levels. Performed By: #### L [id number] ####Nurse Research: SWATI RATLIFF ([id number])[facility] ([facility])[address] [place] [address] TSH Qnon 11-30-2023 Interpretation and review of laboratory results Normal [facility] Troponin I.cardiac [Mass/Vol ]on 11-30-2023 Interpretation and review of laboratory results Normal [facility] Patients with high levels of Biotin oral intake (ie >5 mg/day) may have falsely decreased Troponin levels. [facility] Interpretation and review of laboratory results Normal [facility] Patients with high levels of Biotin oral intake (ie >5 mg/day) may have falsely decreased Troponin levels. [facility] US Heart TransthoracicOrdere d By: Lenora Arzate on 11-30-2023 Ao Root Index 1.56 cm/m2 [facility] Work Phone: [phone] Aortic Root 3.9 cm [facility] Work Phone: [phone] Aortic Sinus Valsalva 3.9 cm [facility] Work Phone: [phone] Aortic Sinus Valsalva Index 1.56 cm/m2 [facility] Work Phone: [phone] Ascending Aorta 4.0 cm [facility] Work Phone: [phone] Ascending Aorta Index 1.60 cm/m2 [facility] Work Phone: AV Area by Peak Velocity 1.7 cm2 [facility] Work Phone: [phone] AV Area by VTI 1.6 cm2 [facility] Work Phone: AV Mean Gradient 7 mmHg [facility] Work Phone: AV Mean Velocity 1.2 m/s [facility] Work Phone: [phone] AV Peak Gradient 11 mmHg [facility] Work Phone: AV Peak Velocity 1.7 m/s [facility] Work Phone: AV Velocity Ratio 0.65 [facility] Work Phone: [phone] AV VTI 42.4 cm [facility] Work Phone: KEN/BSA Peak Velocity 0.7 cm2/m2 [facility] Work Phone: KEN/BSA VTI 0.6 cm2/m2 [facility] Work Phone: E/E' Lateral 5.75 [facility] [place] Phone: E/E' Ratio (Averaged) 7.80 [facility] Work Phone: E/E' Septal 9.86 [facility] Phone: EF BP 70 % 55 - 100 % [facility] Work Phone: Fractional Shortening 2D 31 % 28 - 44 % [facility] Phone: Interpretation and review of laboratory results Abnormal [facility] Phone: IVC Diameter 1.4 cm [facility] Phone: [phone] IVSd 1.3 cm Abnormal 0.6 - 1.0 cm [facility] Phone: [phone] LA Diameter 5.2 cm [facility] Phone: LA Size Index 2.08 cm/m2 [facility] Work Phone: [phone] LA Volume 2C 90 mL Abnormal 18 - 58 mL [facility] Phone: [phone] LA Volume 4C 112 mL Abnormal 18 - 58 mL [facility] Phone: [phone] LA Volume A/L 107 mL [facility] Work Phone: [phone] LA Volume BP 100 mL Abnormal 18 - 58 mL [facility] Phone: LA Volume Index 2C 36 mL/m2 Abnormal 16 - 34 mL/m2 [facility] Phone: LA Volume Index 4C 45 mL/m2 Abnormal 16 - 34 mL/m2 [facility] Phone: [phone] LA Volume Index A/L 43 mL/m2 16 - 34 mL/m2 [facility] Phone: LA Volume Index BP 40 ml/m2 Abnormal 16 - 34 ml/m2 [facility] Phone: LA/AO Root Ratio 1.33 [facility] Work Phone: LV E' Lateral Velocity 12 cm/s [facility] Work Phone: LV E' Septal Velocity 7 cm/s [facility] Work Phone: LV EDV A2C 184 mL [facility] Work Phone: LV EDV A4C 155 mL [facility] Work Phone: LV EDV BP 173 mL Abnormal 67 - 155 mL [facility] Work Phone: LV EDV Index A2C 74 mL/m2 [facility] Work Phone: LV EDV Index A4C 62 mL/m2 [facility] Work Phone: LV EDV Index BP 69 mL/m2 [facility] Work Phone: LV Ejection Fraction A2C 68 % [facility] Work Phone: LV Ejection Fraction A4C 71 % [facility] Work Phone: LV ESV A2C 58 mL [facility] Work Phone: LV ESV A4C 46 mL [facility] Work Phone: LV ESV BP 53 mL 22 - 58 mL [facility] Work Phone: LV ESV Index A2C 23 mL/m2 [facility] Work Phone: LV ESV Index A4C 18 mL/m2 [facility] Work Phone: LV ESV Index BP 21 mL/m2 [place] Work Phone: LV Mass 2D 340.7 g Abnormal 88 - 224 g [facility] Work Phone: LV Mass 2D Index 136.3 g/m2 Abnormal 49 - 115 g/m2 [facility] Work Phone: LV RWT Ratio 0.44 [facility] Work Phone: LVIDd 5.9 cm 4.2 - 5.9 cm [facility] Work Phone: LVIDd Index 2.36 cm/m2 [facility] Work Phone: LVIDs 4.1 cm [facility] Work Phone: LVIDs Index 1.64 cm/m2 [facility] Work Phone: LVOT Area 2.5 cm2 [facility] Work Phone: LVOT Cardiac Output 4.3 liter/mi nut e [facility] Work Phone: LVOT Diameter 1.8 cm [facility] Work Phone: LVOT Mean Gradient 3 mmHg [facility] Work Phone: LVOT Peak Gradient 5 mmHg [facility] Work Phone: LVOT Peak Velocity 1.1 m/s [facility] Work Phone: LVOT Stroke Volume Index 27.7 mL/m2 [facility] Work Phone: LVOT SV 69.2 ml [facility] Work Phone: LVOT VTI 27.2 cm [facility] Work Phone: LVOT:AV VTI Index 0.64 [facility] Work Phone: LVPWd 1.3 cm Abnormal 0.6 - 1.0 cm [facility] Work Phone: MV A Velocity 0.89 m/s [facility] Work Phone: MV E Velocity 0.69 m/s [facility] Work Phone: MV E Wave Deceleration Time 263.4 ms [facility] Work Phone: MV E/A 0.78 [facility] Work Phone: RA Area 4C 78.6 mL [facility] Work Phone: RV Free Wall Peak S' 12 cm/s [facility] Work Phone: Sinotubular Junction 3.0 cm [facility] Work Phone: TAPSE 2.0 cm 1.7 cm [facility] Work Phone: [facility] Work Phone: US Heart Transthoracicon Left Ventricle: Left ventricle size is normal. Mildly increased wall thickness. Normal left ventricular systolic function. EF by 2D Simpsons Biplane is 70%. Normal wall motion. Normal diastolic function. Average E/e' ratio is 7.80. Right Ventricle: Right ventricle size is normal. Normal systolic function. Aorta: Normal sized sinuses of Valsalva. Mildly dilated ascending aorta. Ao ascending diameter is 4.0 cm. No significant valvular abnormalities. Left Ventricle Left ventricle size is normal. Mildly increased wall thickness. Normal left ventricular systolic function. EF by 2D Simpsons Biplane is 70%. Normal wall motion. Normal diastolic function. Average E/e' ratio is 7.80. Right Ventricle Right ventricle size is normal. Normal systolic function. Left Atrium Left atrium is moderately dilated. LA Vol Index A/L is 43 mL/m2. Right Atrium Right atrium size is normal. IVC/SVC IVC diameter is normal and decreases greater than 50% during inspiration; therefore the estimated right atrial pressure is normal (~3 mmHg). Mitral Valve Valve structure is normal. Mild (1+) regurgitation. No stenosis noted. Tricuspid Valve Valve structure is normal. Trace regurgitation. Aortic Valve Trileaflet. No cusp thickening. No cusp calcification. No regurgitation. No stenosis. Pulmonic Valve Valve structure is normal. Trace regurgitation. Ascending Aorta Normal sized sinuses of Valsalva. Mildly dilated ascending aorta. Ao ascending diameter is 4.0 cm. Pericardium No pericardial effusion. Septum No interatrial shunt visualized on color Doppler. Study Details Image quality: technically difficult. Heart rate: 57 bpm. Blood pressure: 129/65 mmHg. The underlying ECG rhythm was sinus bradycardia. Technical qualifiers: Technically difficult study, technically difficult study with poor endocardial visualization, technically difficult study due to patient's body habitus and procedure performed with the patient in a supine position. Ultrasound enhancement agent was given to enhance imaging. Saline contrast was given to evaluate for intracardiac shunt. Bubble study was without Valsalva. Echo Additional Conclusions No significant valvular abnormalities. CV CPACS VITAMIN B12on 11-30-2023 Cobalamin (Vitamin B12) [Mass/Vol] 167 pg/mL Low 239-931 [facility] Comment on above: Performed By: #### L AB17, [id number], LAB67, LAB18, LAB69, [id number] ####Nurse Research: SWATI RATLIFF ([id number])[facility] ([facility])[address] [place] [address] Vital signson 11-30-2023 Heart rate 55 /min bpm [facility] XR ABDOMEN 1 VIEWon 11-30-19 24 XR ABDOMEN 1 VIEW Normal [facility] XR Abdomen Single viewon Nonobstructive bowel gas pattern. No metallic foreign body is identified within the visualized portion of the abdomen and pelvis. Report Dictated on Electronically Signed By: Melvin Scott MD Electronically Signed Date/Time: 11/30/2023 2:50 PM EDT [facility] Patient Name: JAMES REYES : 1955 Exam Date/Time: 11/30/2023 14:35 Procedure: XR ABDOMEN 1 VIEW Ordering Provider: STRICKLAND HASSAN Reason For Exam: MRI screening SUPINE ABDOMEN (KUB) CLINICAL INDICATION: MRI clearance A supine plain film of the abdomen was obtained. COMPARISON: 08/13/2017 FINDINGS: The bowel demonstrates a normal gas pattern. Free air under the diaphragm cannot be adequately assessed on this single, supine view. Upright or decubitus films may be obtained if clinically warranted. Scattered vascular calcification is noted. There are degenerative changes of the lumbar spine. [facility] Melvin Scott MD - 11/30/2023 Patient Name: JAMES REYES : 1955 Exam Date/Time: 11/30/2023 14:35 Procedure: XR ABDOMEN 1 VIEW Ordering Provider: STRICKLAND HASSAN Reason For Exam: MRI screening SUPINE ABDOMEN (KUB) CLINICAL INDICATION: MRI clearance A supine plain film of the abdomen was obtained. COMPARISON: 08/13/2017 FINDINGS: The bowel demonstrates a normal gas pattern. Free air under the diaphragm cannot be adequately assessed on this single, supine view. Upright or decubitus films may be obtained if clinically warranted. Scattered vascular calcification is noted. There are degenerative changes of the lumbar spine. IMPRESSION: Nonobstructive bowel gas pattern. No metallic foreign body is identified within the visualized portion of the abdomen and pelvis. Report Dictated on Electronically Signed By: Melvin Scott MD Electronically Signed Date/Time: 11/30/2023 2:50 PM EDT [facility] Radiology Study observation (narrative) [facility] XR Abdomen Single viewOrdere d By: Melvin Scott on 11-30-2023 [facility] XR CHEST 1 VIEWon 11-30-2023 XR CHEST 1 VIEW Normal [facility] XR Chest Single viewon 11-29 Coarsening of the interstitial lung markings is likely chronic. No focal consolidation is identified. No metallic foreign body is identified within the chest. Report Dictated on Electronically Signed By: Melvin Scott MD Electronically Signed Date/Time: 11/30/2023 3:00 PM EDT [facility] Patient Name: JAMES REYES : 1955 Exam Date/Time: 11/30/2023 14:35 Procedure: XR CHEST 1 VIEW Ordering Provider: STRICKLAND HASSAN Reason For Exam: MRI screening PORTABLE CHEST X-RAY CLINICAL INDICATION: MRI screening A portable frontal view of the chest was obtained. COMPARISON: 04/23/2023 FINDINGS: The cardiac silhouette is within normal limits. Coarsening of the interstitial lung markings is noted, likely chronic. No focal consolidation is seen within the lungs. There is no large pleural effusion or pneumothorax. There are degenerative changes of the thoracic spine. [facility] Melvin Scott MD - 11/30/2023 Patient Name: JAMES REYES : 1955 Exam Date/Time: 11/30/2023 14:35 Procedure: XR CHEST 1 VIEW Ordering Provider: STRICKLAND HASSAN Reason For Exam: MRI screening PORTABLE CHEST X-RAY CLINICAL INDICATION: MRI screening A portable frontal view of the chest was obtained. COMPARISON: 04/23/2023 FINDINGS: The cardiac silhouette is within normal limits. Coarsening of the interstitial lung markings is noted, likely chronic. No focal consolidation is seen within the lungs. There is no large pleural effusion or pneumothorax. There are degenerative changes of the thoracic spine. IMPRESSION: Coarsening of the interstitial lung markings is likely chronic. No focal consolidation is identified. No metallic foreign body is identified within the chest. Report Dictated on Electronically Signed By: Melvin Scott MD Electronically Signed Date/Time: 11/30/2023 3:00 PM EDT [facility] Radiology Study observation (narrative) [facility] alth CBC W Auto Differential pane l (Bld)on 11-29-2023 Basophils (Bld) [#/Vol] 0.0 10*3/uL 0.0 - 0.2 10*3/uL [facility] Basophils/100 WBC (Bld) 0.3 % 0.0 - 2.0 % [facility] Eosinophils (Bld) [#/Vol] 0.1 10*3/uL 0.0 - 0.5 10*3/uL [facility] Eosinophils/100 WBC (Bld) 2.0 % 0.0 - 6.0 % [facility] Erythrocyte distribution width (RBC) [Ratio] 15.6 % High 11.5 - 15.0 % [facility] Hematocrit (Bld) [Volume fraction] 36.9 % Low 40.0 - 52.0 % [facility] Hemoglobin (Bld) [Mass/Vol] 11.7 g/dL Low 13.0 - 18.0 g/dL [facility] Immature granulocytes (Bld) [#/Vol] 0.0 10*3/uL NINF - 0.1 10*3/uL [facility] Immature granulocytes/100 WBC (Bld) 0.3 % 0.0 - 2.0 % [facility] Interpretation and review of laboratory results Abnormal [facility] Lymphocytes (Bld) [#/Vol] 0.9 10*3/uL Low 1.0 - 4.3 10*3/uL [facility] Lymphocytes/100 WBC (Bld) 13.5 % Low 15.0 - 45.0 % [facility] MCH (RBC) [Entitic mass] 30.5 pg 26. 0 - 34.0 pg [facility] MCHC (RBC) [Mass/Vol] 31.7 % 30.5 - 36.0 % [facility] MCV (RBC) [Entitic vol] 96.1 fL 77.0 - 99.0 fL [facility] Monocytes (Bld) [#/Vol] 0.7 10*3/uL 0.0 - 0.9 10*3/uL [facility] Monocytes/100 WBC (Bld) 9.5 % 5.0 - 13.0 % [facility] Neutrophils (Bld) [#/Vol] 5.2 10*3/uL 1.8 - 7.5 10*3/uL [facility] Neutrophils/100 WBC (Bld) 74.4 % 38.0 - 82.0 % [facility] Nucleated RBC/100 WBC (Bld) [Ratio] 0.0 % [facility] Platelet mean volume (Bld) [Entitic vol] 10.3 fL 9.0 - 12.7 fL [facility] Comment on above: MPV is a calculated measurement using platelet volume ratio Platelets (Bld) [#/Vol] 219 10*3/uL 140 - 440 10*3/uL [facility] RBC (Bld) [#/Vol] 3.84 10*6/uL Low 4.40 - 5.9 0 10*6/uL [facility] WBC (Bld) [#/Vol] 7.0 10*3/uL 3.6 - 10.7 10*3/uL [facility] CBC WITH AUTO DIFFERENTIALon 11-29-2023 Basophils (Bld) [#/Vol] 0.0 10*3/uL Normal 0.0-0.2 [facility] Comment on above: Performed By: #### L [id number] ####Nurse Research: SWATI RATLIFF ([id number])[facility]Y [facility] ([facility])[address] [place] [address] Basophils/100 WBC (Bld) 0.3 % Normal 0.0-2.0 [facility] Comment on above: Performed By: #### L [id number] ####Nurse Research: SWATI RATLIFF ([id number])[facility]Y [facility] ([facility])[address] [place] [address] Eosinophils (Bld) [#/Vol] 0.1 10*3/uL Normal 0.0-0.5 [facility] Comment on above: Performed By: #### L [id number] ####Nurse Research: SWATI RATLIFF ([id number])[facility] ([facility])[address] [place] [address] Eosinophils/100 WBC (Bld) 2.0 % Normal 0.0-6.0 [facility] Comment on above: Performed By: #### L [id number] ####Nurse Research: SWATI RATLIFF ([id number])[facility] ([facility])[address] [place] [address] Erythrocyte distribution width (RBC) [Ratio] 15.6 % High 11.5-15.0 [facility] Comment on above: Performed By: #### L [id number] ####Nurse Research: SWATI RATLIFF ([id number])[facility] ([facility])[address] [place] [address] Hematocrit (Bld) [Volume fraction] 36.9 % Low 40.0-52.0 [facility] Comment on above: Performed By: #### L [id number] ####Nurse Research: SWATI RATLIFF ([id number])[facility] ([facility])[address] [place] [address] Hemoglobin (Bld) [Mass/Vol] 11.7 g/dL Low 13.0-18.0 [facility] Comment on above: Performed By: #### L [id number] ####Nurse Research: SWATI RATLIFF ([id number])[facility] ([facility])[address] [place] [address] IMMATURE GRANS % 0.3 % Normal 0.0-2.0 [facility] Comment on above: Performed By: #### L [id number] ####Nurse Research: SWATI RATLIFF ([id number])[facility] ([facility])[address] [place] [address] IMMATURE GRANS ABSOLUTE 0.0 10*3/uL Normal <0.1 [facility] Comment on above: Performed By: #### L [id number] ####Nurse Research: SWATI RATLIFF ([id number])[facility] ([facility])[address] [place] [address] Lymphocytes (Bld) [#/Vol] 0.9 10*3/uL Low 1.0-4.3 [facility] Comment on above: Performed By: #### L [id number] ####Nurse Research: SWATI RATLIFF ([id number])[facility] ([facility])[address] [place] [address] Lymphocytes/100 WBC (Bld) 13.5 % Low 15.0-45.0 [facility] Comment on above: Performed By: #### L [id number] ####Nurse Research: SWATI RATLIFF ([id number])[facility] ([facility])[address] [place] [address] MCH (RBC) [Entitic mass] 30.5 pg Normal 26.0-34.0 [facility] Comment on above: Performed By: #### L [id number] ####Nurse Research: SWATI RATLIFF ([id number])[facility] ([facility])[address] [place] [address] MCHC 31.7 % Normal 30.5-36.0 [facility] Comment on above: Performed By: #### L [id number] ####Nurse Research: SWATI RATLIFF ([id number])[facility] ([facility])[address] [place] [address] MCV (RBC) [Entitic vol] 96.1 fL Normal 77.0-99.0 [facility] Comment on above: Performed By: #### L [id number] ####Nurse Research: SWATI RATLIFF ([id number])[facility]ICOLE [facility] ([facility])[address] [place] [address] [place] Monocytes (Bld) [#/Vol] 0.7 10*3/uL Normal 0.0-0.9 [facility] Comment on above: Performed By: #### L [id number] ####Nurse Research: SWATI RATLIFF ([id number])[facility] ([facility])[address] [place] [address] [place] Monocytes/100 WBC (Bld) 9.5 % Normal 5.0-13.0 [facility] Comment on above: Performed By: #### L [id number] ####Nurse Research: SWATI RATLIFF ([id number])[facility] ([facility])[address] [place] [address] [place] NEUTROPHILS ABSOLUTE 5.2 10*3/uL Normal 1.8-7.5 [facility] Comment on above: Performed By: #### L [id number] ####Nurse Research: SWATI RATLIFF ([id number])[facility] ([facility])[address] [place] [address] [place] Neutrophils/100 WBC (Bld) 74.4 % Normal 38.0-82.0 [facility] Comment on above: Performed By: #### L [id number] ####Nurse Research: SWATI RATLIFF ([id number])[facility] ([facility])[address] [place] [address] [place] NRBC 0.0 /100 WBCs Normal 0.0-2.0 [facility] Comment on above: Performed By: #### L [id number] ####Nurse Research: SWATI RATLIFF ([id number])[facility] ([facility])[address] [place] [address] [place] Platelet mean volume (Bld) [Entitic vol] 10.3 fL Normal 9.0-12.7 [facility] Comment on above: Result Comment: MPV is a calculated measurement using platelet volume ratio Performed By: #### L [id number] ####Nurse Research: SWATI RATLIFF ([id number])[facility] NESBITTTMAN (SWRLAB)[address] [place] [address] Platelets (Bld) [#/Vol] 219 10*3/uL Normal 140-440 [facility] Comment on above: Performed By: #### L [id number] ####Nurse Research: SWATI RATLIFF ([id number])[facility] NESBITTTMAN (SWRLAB)[address] [place] [address] RBC (Bld) [#/Vol] 3.84 10*6/uL Low 4.40-5.90 [facility] Comment on above: Performed By: #### L [id number] ####Nurse Research: SWATI RATLIFF ([id number])[facility] NESBITTTMAN (SWRLAB)[address] [place] [address] WBC (Bld) [#/Vol] 7.0 10*3/uL Normal 3.6-10.7 [facility] Comment on above: Performed By: #### L [id number] ####Nurse Research: SWATI RATLIFF ([phone])[facility] NESBITTTMAN (SWRLAB)[address] [place] [address] COMPREHENSIVE METABOLIC PANE Cricket 11-29-2023 Albumin [Mass/Vol] 3.8 g/dL Normal 3.5-5.0 [facility] Comment on above: Performed By: #### L [id number], [id number] ####Nurse Research: SWATI RATLIFF ([phone])[facility] CRUZ RITTMAN (SWRLAB)[address] [place] [address] ALP [Catalytic activity/Vol] 86 U/L Normal 38-126 [facility] Comment on above: Performed By: #### L [id number], [id number] ####Nurse Research: SWATI RATLIFF ([phone])[facility]ITALA NANCY RITTMAN (SWRLAB)[address] [place] [address] [place] ALT [Catalytic activity/Vol] 14 U/L Normal 0-49 [facility] Comment on above: Performed By: #### L [id number], [id number] ####Nurse Research: SWATI RATLIFF ([id number])[facility]ITAL[facility] VINSONNANCY RITTMAN (SWRLAB)[address] [place] [address] [place] Anion gap [Moles/Vol] 5 mmol/L Normal 3-13 [facility] Comment on above: Performed By: #### L [id number], [id number] ####Nurse Research: SWATI RATLIFF ([id number])[facility] VINSONNANCY RITTMAN (SWRLAB)[address] AST [Catalytic activity/Vol] 20 U/L Normal 15-46 [facility] Comment on above: Performed By: #### L [id number], [id number] ####Nurse Research: SWATI RATLIFF ([id number])[facility] NANCY RITTMAN (SWRLAB)[address] [place] [address] [place] Bilirubin [Mass/Vol] 0.5 mg/dL Normal 0.2-1.3 [facility] Comment on above: Performed By: #### L [id number], [id number] ####Nurse Research: SWATI RATLIFF ([id number])[facility] VINSONNANCY RITTMAN (SWRLAB)[address] [place] [address] [place] Calcium [Mass/Vol] 9.2 mg/dL Normal 8.4-10.4 [facility] Comment on above: Performed By: #### L [id number], [id number] ####Nurse Research: SWATI RATLIFF ([phone])[facility] NANCY RITTMAN (SWRLAB)[address] [place] [address] [place] Chloride [Moles/Vol] 115 mmol/L High 98-107 [facility] Comment on above: Performed By: #### L [id number], [id number] ####Nurse Research: SWATI RATLIFF ([id number])[facility] CRUZ RITTMAN (SWRLAB)[address] [place] [address] [place] CO2 [Moles/Vol] 21 mmol/L Low 22-30 [facility] Comment on above: Performed By: #### L [id number], [id number] ####Nurse Research: SWATI RATLIFF ([id number])[facility] CRUZ RITTMAN (SWRLAB)[address] [place] [address] [place] Creatinine [Mass/Vol] 1.13 mg/dL Normal 0.66-1.25 [facility] Comment on above: Performed By: #### L [id number], [id number] ####Nurse Research: SWATI RATLIFF ([id number])[facility]ITAL[facility] CRUZ RITTMAN (SWRLAB)[address] [place] [address] [place] GLOMERULAR FILTRATION RATE ML/MIN/1.73 SQ M.PREDICTED 71.2 mL/min/1.73m*2 Normal >60.0 [facility] Comment on above: Result Comment: Calc ulation based on the Chronic Kidney Disease Epidemiology Collaboration (CKD-EPI) equation refit without adjustment for race Performed By: #### L [id number], [id number] ####Nurse Research: SWATI RATLIFF ([id number])[facility]ITAL[facility] CRUZ RITTMAN (SWRLAB)[address] [place] [address] [place] Glucose [Mass/Vol] 93 mg/dL Normal 70-100 [facility] Comment on above: Performed By: #### L [id number], [id number] ####Nurse Research: SWATI RATLIFF ([phone])[facility]ITAL[facility] CRUZ RITTMAN (SWRLAB)[address] [place] [address] [place] Potassium [Moles/Vol] 4.1 mmol/L Normal 3.5-5.1 [facility] Comment on above: Performed By: #### L [id number], [id number] ####Nurse Research: SWATI RATLIFF ([id number])[facility]ITAL[facility] VINSONNANCY RITTMAN (SWRLAB)[address] Protein [Mass/Vol] 6.3 g/dL Normal 6.3-8.2 [facility] Comment on above: Performed By: #### L [id number], [id number] ####Nurse Research: SWATI RATLIFF ([id number])[facility]ITAL[facility] VINSONNACNY RITTMAN (SWRLAB)[address] Sodium [Moles/Vol] 141 mmol/L Normal 135-145 [facility] Comment on above: Performed By: #### L [id number], LAB17 ####Nurse Research: SWATI RATLIFF ([id number])[facility] NANCY RITTMAN (SWRLAB)[address] [place] [address] Urea nitrogen [Mass/Vol] 30 mg/dL High 9-20 [facility] Comment on above: Performed By: #### L [id number], [id number] ####Nurse Research: SWATI RATLIFF ([id number])[facility]ITALP[facility] CRUZ RITTMAN (SWRLAB)[address] [place] [address] [place] CERVICAL SPINE WO IV CONT RASTon 11-29-2023 CT CERVICAL SPINE WO IV CONTRAST Normal [facility] CT Cervical spine WO contras ton 11-29-2023 [facility] 1955 [id number] Exam Date/Time: 11/29/2023 18:06 Procedure: CT CERVICAL SPINE WO IV CONTRAST Ordering Provider: ARREOLA MARY Reason For Exam: fall eval fx CT BRAIN AND CERVICAL SPINE WITHOUT CONTRAST CLINICAL INDICATION: Fall hit head to eval fracture ICH TECHNIQUE: CT scan of the brain and cervical spine without IV contrast. Multiplanar reformations. Dose reduction was employed with automated exposure control. COMPARISON: CT brain, November,. FINDINGS: Brain: No parenchymal mass, mass effect, hemorrhage, midline shift or hydrocephalus. No evidence of acute cortical infarct. No abnormal, extra-axial fluid or air collection. Mild, patchy low density in the periventricular and subcortical white matter is nonspecific, but may relate to chronic small vessel ischemic change. 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 Mild, diffuse volume loss. Osseous calvarium grossly intact. Partial opacification of bilateral mastoid sinus. Cervical spine: Mild scoliotic change in visualized cervicothoracic spine. Multilevel degenerative disc disease and spondylosis, including C1-C2 articulation. No acute compression deformity or gross malalignment of cervical vertebral bodies. No acute fracture. No acute, osseous central spinal canal encroachment. Paraspinal soft tissues grossly unremarkable. Bilateral carotid calcifications, left greater than right. [facility]IOLOGY [facility] Primo Millan MD - 11/29/2023 Patient Name: [facility] 1955 [id number] Exam Date/Time: 11/29/2023 18:06 Procedure: CT CERVICAL SPINE WO IV CONTRAST Ordering Provider: ARREOLA MARY Reason For Exam: fall eval fx CT BRAIN AND CERVICAL SPINE WITHOUT CONTRAST CLINICAL INDICATION: Fall hit head to eval fracture ICH TECHNIQUE: CT scan of the brain and cervical spine without IV contrast. Multiplanar reformations. Dose reduction was employed with automated exposure control. COMPARISON: CT brain, November,. FINDINGS: Brain: No parenchymal mass, mass effect, hemorrhage, midline shift or hydrocephalus. No evidence of acute cortical infarct. No abnormal, extra-axial fluid or air collection. Mild, patchy low density in the periventricular and subcortical white matter is nonspecific, but may relate to chronic small vessel ischemic change. 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 Mild, diffuse volume loss. Osseous calvarium grossly intact. Partial opacification of bilateral mastoid sinus. Cervical spine: Mild scoliotic change in visualized cervicothoracic spine. Multilevel degenerative disc disease and spondylosis, including C1-C2 articulation. No acute compression deformity or gross malalignment of cervical vertebral bodies. No acute fracture. No acute, osseous central spinal canal encroachment. Paraspinal soft tissues grossly unremarkable. Bilateral carotid calcifications, left greater than right. IMPRESSION: 1. No acute intracranial findings. Chronic ischemic and atrophic changes. 2. No acute compression deformity or apparent fracture in the cervical spine. Degenerative spondylosis. Report Dictated on Electronically Signed By: Primo Millan MD Electronically Signed Date/Time: 11/29/2023 6:28 PM EDT [facility] Radiology Study observation (narrative) Nicole Mathew alth CT HEAD WO IV CONTRASTon CT HEAD WO IV CONTRAST Normal [facility] CT Head WO contraston 2023 Patient Name: JAMES REYES : 1955 Exam Date/Time: 11/29/2023 18:05 Procedure: CT HEAD WO IV CONTRAST Ordering Provider: ARREOLA MARY Reason For Exam: Fall hit head to eval fracture ICH CT BRAIN AND CERVICAL SPINE WITHOUT CONTRAST CLINICAL INDICATION: Fall hit head to eval fracture ICH TECHNIQUE: CT scan of the brain and cervical spine without IV contrast. Multiplanar reformations. Dose reduction was employed with automated exposure control. COMPARISON: CT brain, November,. FINDINGS: Brain: No parenchymal mass, mass effect, hemorrhage, midline shift or hydrocephalus. No evidence of acute cortical infarct. No abnormal, extra-axial fluid or air collection. Mild, patchy low density in the periventricular and subcortical white matter is nonspecific, but may relate to chronic small vessel ischemic change. 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 Mild, diffuse volume loss. Osseous calvarium grossly intact. Partial opacification of bilateral mastoid sinus. Cervical spine: Mild scoliotic change in visualized cervicothoracic spine. Multilevel degenerative disc disease and spondylosis, including C1-C2 articulation. No acute compression deformity or gross malalignment of cervical vertebral bodies. No acute fracture. No acute, osseous central spinal canal encroachment. Paraspinal soft tissues grossly unremarkable. Bilateral carotid calcifications, left greater than right. [facility] Primo Millan MD - 11/29/2023 Patient Name: JAMES REYES : 1955 Exam Date/Time: 11/29/2023 18:05 Procedure: CT HEAD WO IV CONTRAST Ordering Provider: ARREOLA MARY Reason For Exam: Fall hit head to eval fracture ICH CT BRAIN AND CERVICAL SPINE WITHOUT CONTRAST CLINICAL INDICATION: Fall hit head to eval fracture ICH TECHNIQUE: CT scan of the brain and cervical spine without IV contrast. Multiplanar reformations. Dose reduction was employed with automated exposure control. COMPARISON: CT brain, November,. FINDINGS: Brain: No parenchymal mass, mass effect, hemorrhage, midline shift or hydrocephalus. No evidence of acute cortical infarct. No abnormal, extra-axial fluid or air collection. Mild, patchy low density in the periventricular and subcortical white matter is nonspecific, but may relate to chronic small vessel ischemic change. 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 Mild, diffuse volume loss. Osseous calvarium grossly intact. Partial opacification of bilateral mastoid sinus. Cervical spine: Mild scoliotic change in visualized cervicothoracic spine. Multilevel degenerative disc disease and spondylosis, including C1-C2 articulation. No acute compression deformity or gross malalignment of cervical vertebral bodies. No acute fracture. No acute, osseous central spinal canal encroachment. Paraspinal soft tissues grossly unremarkable. Bilateral carotid calcifications, left greater than right. IMPRESSION: 1. No acute intracranial findings. Chronic ischemic and atrophic changes. 2. No acute compression deformity or apparent fracture in the cervical spine. Degenerative spondylosis. Report Dictated on Electronically Signed By: Primo Millan MD Electronically Signed Date/Time: 11/29/2023 6:28 PM EDT [facility] Radiology Study observation (narrative) [facility] metabolic 1998 panelon 11-29-2023 Albumin [Mass/Vol] 3.8 g/dL 3.5 - 5.0 g/dL [facility] ALP [Catalytic activity/Vol] 86 U/L 38 - 126 U/L [facility] ALT [Catalytic activity/Vol] 14 U/L 0 - 49 U/L [facility] Anion gap [Moles/Vol] 5 mmol/L 3 - 13 mmol/L [facility] AST [Catalytic activity/Vol] 20 U/L 15 - 46 U/L [facility] Bilirubin [Mass/Vol] 0.5 mg/dL 0.2 - 1 .3 mg/dL [facility] Calcium [Mass/Vol] 9.2 mg/dL 8.4 - 10. 4 mg/dL [facility] Chloride [Moles/Vol] 115 mmol/L High 98 - 10 7 mmol/L [facility] CO2 [Moles/Vol] 21 mmol/L Low 22 - 30 mmol/L [facility] Creatinine [Mass/Vol] 1.13 mg/dL 0.66 - 1.25 mg/dL [facility] GFR/1.73 sq M.predicted (S/P/Bld) [Vol rate/Area] 71.2 mL/min - PINF [facility] Comment on above: Calculation based on the Chronic Kidney Disease Epidemiology Collaboration (CKD-EPI) equation refit without adjustment for race Glucose [Mass/Vol] 93 mg/dL 70 - 100 mg/dL [facility] Interpretation and review of laboratory results Abnormal [facility] Potassium [Moles/Vol] 4.1 mmol/L 3.5 - 5.1 mmol/L [facility] Protein [Mass/Vol] 6.3 g/dL 6.3 - 8.2 g/dL [facility] Sodium [Moles/Vol] 141 mmol/L 135 - 145 mmol/L [facility] Urea nitrogen [Mass/Vol] 30 mg/dL High 9 - 20 mg/dL [facility] ED Nursing Noteon 11-29-2023 ED Nursing Note Spoke to sister in [place], and advised that patient is being admitted to [facility] and EMS is on scene for transport Amelia Lopez RN 11/29/23 233 [facility] ED Nursing Note Report to [facility] ambulance crew. Chart to crew for [facility]. Minda Quesada RN 11/29/23 2333 [facility] ED Nursing Note Report called to 4W Amelia ROACH @ [facility] Minda Quesada RN 11/29/23 2312 [facility] ED Nursing Note Pt's sister in [place], called to ask about pt. Ok to speak to her per pt. Advised about the fall earlier and now having dizziness. She will call back later to check about the results. 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 Dr. Ruff notified Minda Quesada RN 11/29/231946 Normal [facility] ED Nursing Note Normal [facility] ED Nursing Note Normal [facility] ED Nursing Note Pt'd continous gluco se monitor is going off. Reading 69. Finger stick glucose 84 on arrival. Minda Quesada RN 11/29/23 1611 Normal [facility] ED Nursing Note Normal [facility] ED Provider Noteon 4 ED Provider Note Normal [facility] Laboratory - Chemistry and C hemistry - challengeon 11-29-2023 Troponin I.cardiac [Mass/Vol] ng/mL NINF - 0.034 ng/mL [facility] Glucose [Mass/Vol] 101 mg/dL High 70 - 100 mg/dL [facility] Glucose [Mass/Vol] 84 mg/dL 70 - 100 mg/dL [facility] Laboratory - Coagulationon 0 11-29-2023 PT Coag (Bld) [Time] 10.9 s 9.0 - 1 2.0 s [facility] No Panel Informationon 11-28 Interpretation and review of laboratory results Abnormal [facility] Performed by: [facility], [address] [place] [address] CLIA ID: [id number] [facility] 1. No acute intracranial findings. Chronic ischemic and atrophic changes. 2. No acute compression deformity or apparent fracture in the cervical spine. Degenerative spondylosis. Report Dictated on Electronically Signed By: Primo Millan MD Electronically Signed Date/Time: 11/29/2023 6:28 PM EDT [facility]IOLOGY [facility] Interpretation and review of laboratory results Normal [facility] Performed by: [facility], [address] [place] [address] CLIA ID: [id number] [facility] No Panel InformationOrdered By: Primo Millan on 11-29-2023 [facility] Work Phone: PROTHROMBIN TIMEon 4 INR Coag (PPP) [Relative time] 1.0 {INR} Normal 0.9-1.1 [facility] Comment on above: Result Comment: Lux mmended Anticoagulant Therapy: SEE BELOW----- INR of 2.0 - 3.0 : - Prophylaxis of Venous Thrombosis (high-risk surgery) - Treatment of Venous Thrombosis - Treatment of Pulmonary Embolism (Includes tissue heart valves, Acute Myocardial Infarction to prevent systemic embolism, Valvular Heart Disease, and Atrial Fibrillation)----- INR of 2.5 - 3.5 : - Mechanical Prosthetic Valves (high risk) - If oral anticoagulant therapy is used to prevent Myocardial Infarction Performed By: #### L [id number] ####Nurse Research: SWATI RATLIFF ([phone])[facility] NANCY RITTMAN (SWRLAB)[address] [place] [address] PT Coag (PPP) [Time] 10.9 s Normal 9.0-12.0 [facility] Comment on above: Performed By: #### L [id number] ####Nurse Research: SWATI RATLIFF ([id number])[facility] [employer]AN (SWRLAB)[address] [place] [address] PT Coag (Bld) [Time]on 11-28 INR Coag (PPP) [Relative time] 1.0 {INR} 0.9 - 1.1 [facility] Comment on above: Recommended Anticoag ulant Therapy: SEE BELOW ----- INR of 2.0 - 3.0 : - Prophylaxis of Venous Thrombosis (high-risk surgery) - Treatment of Venous Thrombosis - Treatment of Pulmonary Embolism (Includes tissue heart valves, Acute Myocardial Infarction to prevent systemic embolism, Valvular Heart Disease, and Atrial Fibrillation) ----- INR of 2.5 - 3.5 : - Mechanical Prosthetic Valves (high risk) - If oral anticoagulant therapy is used to prevent Myocardial Infarction Interpretation and review of laboratory results Normal [facility] TROPONIN, WITH SERIAL REFLEX on 11-29-2023 Troponin I.cardiac [Mass/Vol] ng/mL Normal <0.034 [facility] Comment on above: Result Comment: TAVO Hernandez COMMENTS:Patients with high levels of Biotin oral intake (ie >5 mg/day) may have falsely decreased Troponin levels. Performed By: #### L [id number], [id number] ####Nurse Research: SWATI RATLIFF ([phone])[facility] NANCYRedCritterAN (SWRLAB)[address] [place], [place] [address] [place] Troponin I.cardiac [Mass/Vol ]on 11-29-2023 Interpretation and review of laboratory results Normal [facility] Patients with high levels of Biotin oral intake (ie >5 mg/day) may have falsely decreased Troponin levels. [facility] Patient Instructionson 09-13 Network Communications Engineer Authentication Interface Message Text Dental extraction Instructions Biting on Gauze to Control Bleeding Bleeding may occur for some time after you extraction. In most cases this bleeding can be easily controlled by placing a piece of clean gauze DIRECTLY over the empty tooth socket. Then make sure that you bite firmly on this gauze for 30 to 60 minutes. Use the gauze we supplied to you in the bag. Wash your hands with soap and water before touching the gauze and placing it in your mouth. Place the used gauze from your mouth in a plastic bag and dispose the bag in a trash container. Make sure to wash your hands again when you are done touching the used gauze and before touching anything else. If a small amount of bleeding continues after 45 minutes then repeat these instructions. Sometimes biting a tea bag may be helpful in controlling minor bleeding. Very light bleeding for 2 days is not uncommon. If heavy bleeding is still persistent during normal clinic hours than call the Clinic where the extraction was done to speak with an oral surgeon. [facility] [phone]. HELPING THE HEALING PROCESS AND STOPPING THE BLEEDING FOR THE NEXT 24 HOURS (1 DAY) AFTER THE EXTRACTION: DO NOT RINSE YOUR MOUTH OR SPIT 2. DO NOT DRINK ANY HOT LIQUIDS SUCH SOUP, COFFEE, TEA, HOT CHOCOLATE AVOID HEAVY LIFTING, BENDING OR OTHER STENUOUS EXERCISES SLEEP WITH 2 PILLOWS OR IN A RECLINER CHAIR. KEEPING HEAD ELEVATED WILL REDUCE SWELLING. SUTURE WILL DISSOLVE IN 7-10 DAYS FOR THE NEXT 72 HOURS (3 DAYS) AFTER THE EXTRACTION: DO NOT SMOKE OR DRINK ALCOHOL DO NOT DRINK OR SUCK FROM A STRAW OR ANYTHING ELSEDO NOT DRINK. Stitches may have been placed to help healing. Your surgeon will advise you if you need to return to have them removed. TOOTH BRUSHING On the day of the extraction it is best to avoid brushing the teeth right next to the extraction site. On the next day you can start brushing ALL your teeth but in a gentle fashion. Remember to not rinse strongly because it may cause you to start bleeding from the extraction site again. SWELLING AND PAIN After the extraction you may feel some pain and experience some swelling. An ice pack of unopened bag of frozen peas of corn applied to the area should keep the swelling down. Put the ice pack on you face for 10 minutes and then leave it off for the next 20 minutes. You can repeat this patter as you feel is necessary for up to 24 hours after the extraction. To avoid injury, make sure that adults or children avoid biting or chewing on their lips of cheeks, which may be numb following an extraction. If your pain or swelling seems to be getting worse or you feel as though something is not right then call your dentist, as directed above. ANTIBIOTICS AND PAIN MEDICATION If antibiotics have been prescribed then you should take them as directed; this includes taking all the antibiotic (or liquid) pills that were prescribed. If you don't finish them completely a serious infection could result. You may have little of no discomfort after the extraction. If you have minor pain then you may want to take acetaminophen (Tylenol) or ibuprofen (Motrin). It is very important that before taking any medications that you read and follow the directions and warnings that come with these products so you know whether they are right for you and you situation. If you have any questions on whether these medications are right for you, first talk to your doctor or pharmacist before taking the medication. Your surgeon may have given you a written prescription for pain relief. It is important that if you decide to take it you read and understand all the precautions, warnings and directions that come with the medication. If you have any questions on whether the medication is right for you, first talk to your doctor or pharmacist before taking the medication. The pain medication prescription that your dentist gave you may contain a narcotic (like codeine). If so, most narcotic pain medications may upset your stomach. If so, then it is best to take them with food. The pain medication prescription that you were given can also make you drowsy or make you act strangely. If so, you should limit or stop activities such as driving a motor vehicle, operate machinery or other activities that require your full attention. EATING AND DRINKING A soft or liquid diet may be best for you after a difficult extraction. For a simpler extraction just make sure you do your chewing with those teeth that are NOT near the extraction site. POSTOPERATIVE INSTRUCTION AFTER SEDATION / GENERAL ANESTHESIA If you had general anesthesia of IV sedation, do not drive or operate machinery for 24 hours. A responsible adult should be with you for the remainder of the day. When starting oral intake, be sure to consume CLEAR LIQUIDS first. Clear liquids consist of water, Sprite, gloria candelaria, Jell-O, and non-pulp containing juices such as c (more content not included)... Normal [facility] Progress Noteson 09-14-2023 Network Communications Engineer Authentication Interface Message Text Attestation signed by Rony Arriaza DMD, MD at 10/11/2023 1:24 PM I was personally present for the white portions of the procedure. Rony Arriaza DMD, MD ORAL SURGERY PROCEDURE ROOM NOTE [facility] Product(s): Routine extraction teeth # 21, # 22, # 23, # 24, # 25, # 26, # 27, and # 29 and Alveoloplasty RLQ and LLQ PMH: Reviewed, no change. Antibiotic prophylaxis indicated/taken: no Discussed risks, benefits, and alternatives of treatment. All of the patient's questions were answered, and informed consent was obtained: yes Pre-op Diagnosis: Caries PROCEDURE TIME OUT CHECK LIST 1. Radiograph is correctly matched to the patient,diagnostic quality, correctly oriented for laterality: Yes 2. Time out performed confirming correct surgical site and/or involved teeth verified by the patient and the surgeon: Yes Anesthesia: 20% topical Benzocaine paste on oral mucosa, 2% Xylocaine with 1/100,000 epinephrine: 2 carpules, 0.5% Bupivicaine: 2 carpules, and 4% Articaine with 1/100,000 epinephrine 2 carpules, infiltration administration only Attending: Rony Arriaza DMD, MD Resident: Jacqui Glass DDS Assistants: GUEVARA Peterson Procedure in Detail: LA was administered via b/L IA, mental nerve blocks and local infiltration. No positive aspiration observed. For pharyngeal protection a throat screen was inserted prior to oral instrumentation and subsequently removed upon completion of procedure. 15 blade utilized to create sulcular and distal releasing incisions. Periosteal elevator developed FTMP flap mucoperiosteal cuff around teeth #21, 22, 23, 24, 25, 26, 27, and 29. Standard elevator and forceps extraction teeth # #21, 22, 23, 24, 25, 26, 27, and 29. Alveoloplasty achieved in RLQ and LLQ with rongeurs and bone files to eliminate irregular bony contours. Inspected sockets, followed by curettage. Wound irrigation with NS. 3-0 chromic gut sutures placed to re-approximate tissues. Patient instructed to bite on gauze for hemostasis. Hemostasis verified prior to dismissal. Verbal and written postop instructions were given to patient. Rx given for Motrin, Tylenol, Peridex. Complications: none Specimens: Intact teeth Estimated blood loss: Minimal (<5 ml) Disposition: longterm Referral placed for General Dentistry Jacqui Glass DDS Normal [facility] Progress Noteson 09-06-2023 Network Communications Engineer Authentication Interface Message Text Attestation signed by Rony Arriaza DMD, MD at 09/29/2023 9:41 AM Teaching Physician Note: I saw and evaluated the patient. I personally obtained the white and critical portions of the history and physical exam. I reviewed the resident's documentation and discussed the patient with the resident. I agree with the resident's medical decision making as documented in the resident's note. Rony Arriaza DMD, MD OMFS PATIENT VISIT CHIEF COMPLAINT: Pain HISTORY OF PRESENT ILLNESS: A 67 yo male with PMHx Coronary artery disease s/pCABG 2014, C- showing patent GREY to the LAD 2017. LV function normal 04/2012, Angina, Acute kidney injury (HCC),CAD in [place] artery, MINERVA, COPD, Developmental disorder, Diabetes, GERD, Hyperlipidemia, IBS (irritable bowel syndrome),Obesity, Osteoarthritis [place] [facility] [place] external referral for removal of lower teeth # 29, #27, #26, # 25, # 24, #23, # 22 and #21. Pt endorses waxing and waning pain originating from the teeth listed on the referral for pain that limits her ability to chew, function normally, and perform oral hygiene. Patient denies f/c, n/v, odynophagia, dysphagia, or SOB. PAST MEDICAL HISTORY: No past medical history on file. Patient Active Problem List: Age-related cataract of both eyes [H25.9] Anemia [D64.9] Angina at rest [I20.89] Chest pain [R07.9] Anxiety state [F41.1] Arthritis of foot, degenerative [M19.079] Primary osteoarthritis of right foot [M19.071] Atherosclerosis of coronary artery without angina pectoris [I25.10] CAD in [place] artery [I25.10] Cataract, nuclear sclerotic, both eyes [H25.13] Chronic combined systolic (congestive) and diastolic (congestive) heart failure (HCC) [I50.42] Chronic pulmonary edema (HCC) [J81.1] Chronic respiratory failure with hypoxia (HCC) [J96.11] Colitis [K52.9] Colitis, collagenous [K52.831] Combined form of senile cataract [H25.819] COPD (chronic obstructive pulmonary disease) (HCC) [J44.9] Dyslipidemia [E78.5] Benign prostatic hyperplasia without urinary obstruction [N40.0] Enlarged prostate with lower urinary tract symptoms (LUTS) [N40.1] Esophagitis, reflux [K21.00] Gastroesophageal reflux disease without esophagitis [K21.9] Generalized anxiety disorder [F41.1] Hiatal hernia [K44.9] Hyperlipidemia [E78.5] Hypertensive heart disease [I11.9] Hypertensive heart disease with heart failure (HCC) [I11.0] Irritable bowel syndrome with constipation [K58.1] Irritable bowel syndrome [K58.9] Knee osteoarthritis [M17.9] Osteoarthritis of multiple joints [M15.9] Polyosteoarthritis, unspecified [M15.9] Knee pain, bilateral [M25.561, M25.562] 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 [Z79.2] Low back pain [M54.50] Major depressive disorder, recurrent, mild (HCC) [F33.0] Morbid obesity (HCC) [E66.01] Obesity [E66.9] Nonexudative age-related macular degeneration, bilateral, early dry stage [H35.3131] MINERVA (obstructive sleep apnea) [G47.33] Other specified disorders of bone density and structure, left hand [M85.842] Papilloma of left upper eyelid [D23.121] Patient's noncompliance with other medical treatment and regimen due to unspecified reason [Z91.199] Peripheral vascular disease, unspecified ([facility]) [I73.9] Personal history of COVID-19 [Z86.16] Pseudomonas aeruginosa infection [A49.8] Respiratory failure ([facility]) [J96.90] Shoulder pain, left [M25.512] Spondylosis without myelopathy [M47.819] Tobacco abuse [Z72.0] Type 2 diabetes mellitus treated with insulin ([facility]) [E11.9, Z79.4] Type 2 diabetes mellitus with chronic kidney disease (HCC) [E11.22] Type 2 diabetes mellitus with diabetic polyneuropathy ([facility]) [E11.42] Uncontrolled type 2 diabetes mellitus with hyperglycemia, with long-term current use of insulin ([facility]) [E11.65, Z79.4] Unspecified dementia, moderate, with psychotic disturbance [F03.B2] Vitamin D deficiency, unspecified [E55.9] Sternal wound dehiscence [T81.32XA] Wound disruption, post-op, skin, initial encounter [T81.31XA] REVIEW OF SYSTEMS: A 12-point review of systems was completed. Negative unless otherwise stated in HPI. MEDICATIONS: Current Outpatient Medications Medication Sig Dispense Refill pantoprazole (Protonix) 40 MG tablet 1 tab(s) orally once a day trimethoprim-polymyxin b (POLYTRIM) 30324-4.1 UNIT/ML-% ophthalmic solution sbieaph-xstctg-jvxanyml (CREON) 76344 units capsule Take by mouth. oxyCODONE-acetaminophen (ROXICET) 5-325 MG/5ML oral solution Take by mouth every 6 hours as needed. simethicone (GAS-X) 80 MG chewable tablet 1 tab(s) chewed 4 times a day (after meals and at bedtime) tramadol (ULTRAM) 50 MG tablet tizanidine (Zanaflex) 2 MG capsule 2 cap(s) orally every 8 hours insulin glargine (Lantus) 100 UNIT/ML injection 44 units subcutaneou (more content not included)... Normal [facility] Progress Noteson 09-05-2023 Network Communications Engineer Authentication Interface Message Text Normal [facility] Progress Noteon 08-21-2023 Progress Note Normal [facility] No Panel InformationOrdered By: Nayeli Martinez on 07-14-2023 Ascending A[facility] 3.4 cm [facility] Work Phone: [phone] Ascending Aorta Index 1.38 cm/m2 [facility] Work Phone: [phone] AV Area by Peak Velocity 2.5 cm2 [facility] Work Phone: [phone] AV Area by VTI 2.8 cm2 [facility] Work Phone: [phone] AV Mean Gradient 4 mmHg [facility] Work Phone: [phone] AV Mean Velocity 0.9 m/s [facility] Work Phone: [phone] AV Peak Gradient 6 mmHg [facility] Work Phone: [phone] AV Peak Velocity 1.2 m/s [facility] Work Phone: [phone] AV Velocity Ratio 0.75 [facility] Work Phone: [phone] AV VTI 21.0 cm [facility] Work Phone: [phone] KEN/BSA Peak Velocity 1.0 cm2/m2 [facility] Work Phone: [phone] KEN/BSA VTI 1.1 cm2/m2 [facility] Work Phone: [phone] Baseline Diastolic BP 68 mmHg [facility] Work Phone: [phone] Baseline HR 71 bpm [facility] Work Phone: [phone] Depression 0 mm [facility] Work Phone: [phone] Baseline Systolic BP 121 mmHg [facility] Work Phone: [phone] EF BP 64 % 55 - 100 % [facility] Work Phone: Exercise Duration Seconds 8 sec [facility] Work Phone: Exercise Duration Time 11 min [facility] Work Phone: [phone] Fractional Shortening 2D 41 % 28 - 44 % [facility] Work Phone: Interpretation and review of laboratory results Abnormal [facility] Work Phone: IVSd 1.7 cm Abnormal 0.6 - 1.0 cm [facility] Work Phone: LA Volume 4C 94 mL Abnormal 18 - 58 mL [facility] Work Phone: LA Volume Index 4C 38 mL/m2 Abnormal 16 - 34 mL/m2 [facility] Work Phone: LV EDV A2C 41 mL [facility] Work Phone: LV EDV A4C 127 mL [facility] Work Phone: LV EDV BP 75 mL 67 - 155 mL [facility] Work Phone: LV EDV Index A2C 17 mL/m2 [facility] Work Phone: LV EDV Index A4C 51 mL/m2 [facility] Work Phone: LV EDV Index BP 30 mL/m2 [facility] Work Phone: LV Ejection Fraction A2C 71 % [facility] Work Phone: LV Ejection Fraction A4C 57 % [facility] Work Phone: [phone] LV ESV A2C 12 mL [facility] Work Phone: [phone] LV ESV A4C 55 mL [facility] Work Phone: [phone] LV ESV BP 27 mL 22 - 58 mL [facility] Work Phone: [phone] LV ESV Index A2C 5 mL/m2 [facility] Work Phone: [phone] LV ESV Index A4C 22 mL/m2 [facility] Work Phone: [phone] LV ESV Index BP 11 mL/m2 [facility] Work Phone: [phone] LV Mass 2D 309.6 g Abnormal 88 - 224 g [facility] Work Phone: [phone] LV Mass 2D Index 125.3 g/m2 Abnormal 49 - 115 g/m2 [facility] Work Phone: [phone] LV RWT Ratio 0.73 [facility] Work Phone: [phone] LVIDd 4.4 cm 4.2 - 5.9 cm [facility] Work Phone: [phone] LVIDd Index 1.78 cm/m2 [facility] Work Phone: [phone] LVIDs 2.6 cm [facility] Work Phone: [phone] LVIDs Index 1.05 cm/m2 [facility] Work Phone: [phone] LVOT Area 3.5 cm2 [facility] Work Phone: [phone] LVOT Cardiac Output 5.0 liter/mi nut e [facility] Work Phone: [phone] LVOT Diameter 2.1 cm [facility] Work Phone: [phone] LVOT Mean Gradient 2 mmHg [facility] Work Phone: [phone] LVOT Peak Gradient 4 mmHg [facility] Work Phone: [phone] LVOT Peak Velocity 0.9 m/s [facility] Work Phone: [phone] LVOT Stroke Volume Index 24.9 mL/m2 [facility] Work Phone: [phone] LVOT SV 61.6 ml [facility] Work Phone: LVOT VTI 17.8 cm [facility] Work Phone: LVOT:AV VTI Index 0.85 [facility] Work Phone: LVPWd 1.6 cm Abnormal 0.6 - 1.0 cm [facility] Work Phone: MV A Velocity 0.75 m/s [facility] Work Phone: MV E Velocity 0.54 m/s [facility] Work Phone: MV E Wave Deceleration Time 189.6 ms [facility] Work Phone: MV E/A 0.72 [facility] Work Phone: Recovery Stage 1 Duration 1:15 min:sec [facility] Work Phone: Recovery Stage 1 HR 130 bpm [facility] Work Phone: Recovery Stage 2 BP 115/44 mmHg [facility] Work Phone: Recovery Stage 2 Duration 2:15 min:sec [facility] Work Phone: Recovery Stage 2 HR 130 bpm [facility] Work Phone: Recovery Stage 3 BP 131/59 mmHg [facility] Work Phone: Recovery Stage 3 Duration 5:15 min:sec [facility] Work Phone: Recovery Stage 3 HR 111 bpm [facility] Work Phone: Recovery Stage 4 Comments no symptoms [facility] Work Phone: Recovery Stage 4 Duration 6:15 min:sec [facility] Work Phone: Recovery Stage 4 HR 100 bpm [facility] Work Phone: Stress Diastolic BP 39 mmHg [facility] Work Phone: Stress Estimated Workload 1.0 METS [facility] Work Phone: Stress Peak HR 130 bpm [facility] Work Phone: Stress Percent HR Achieved 84 % [facility] Work Phone: Stress Rate Pressure Product 99097 bpm*mmHg [facility] Work Phone: Stress ST Depression 0 mm [facility] Work Phone: Stress Stage 1 Duration 0:50 min:sec [facility] Work Phone: Stress Stage 1 HR 73 bpm [facility] Work Phone: Stress Stage 2 Duration 2:50 min:sec [facility] Work Phone: Stress Stage 2 HR 71 bpm [facility] Work Phone: Stress Stage 3 Duration 5:4 min:sec [facility] Work Phone: Stress Stage 3 HR 88 bpm [facility] Work Phone: Stress Stage 4 BP 116/50 mmHg [facility] Work Phone: Stress Stage 4 Duration 5:50 min:sec [facility] Work Phone: Stress Stage 4 HR 94 bpm [facility] Work Phone: Stress Stage 5 BP 113/39 mmHg [facility] Work Phone: Stress Stage 5 Duration 8:50 min:sec [facility] Work Phone: Stress Stage 5 HR 114 bpm [facility] Work Phone: Stress Stage 6 Comments no symptoms [facility] Work Phone: Stress Stage 6 Duration 11:8 min:sec [facility] Work Phone: Stress Stage 6 HR 130 bpm [facility] Work Phone: Stress Systolic BP 113 mmHg [facility] Work Phone: Stress Target HR 154 bpm [facility] Work Phone: [facility] Work Phone: No Panel Informationon 07-13 Study Impression: Normal dobutamine stress echocardiogram. No echocardiographic evidence of ischemia. Post-stress Echo: The post-stress echo showed no new wall motion abnormalities. Left Ventricle: Left ventricle size is normal. Moderately increased wall thickness. Normal left ventricular systolic function. EF by 2D Simpsons Biplane is 64%. Normal wall motion. Stress ECG: Conclusion: The dobutamine stress EKG is normal. Stress Test: A pharmacological stress test was performed using dobutamine. Hemodynamics are adequate for diagnosis. Blood pressure demonstrated a normal response and heart rate demonstrated a normal response to stress. The patient's heart rate recovery was normal. The patient reported no symptoms during the stress test. Left Ventricle: Left ventricle size is normal. Normal wall thickness. Normal left ventricular systolic function. Normal wall motion. Right Ventricle: Right ventricle size is normal. Normal systolic function. Left Ventricle Left ventricle size is normal. Moderately increased wall thickness. Normal left ventricular systolic function. EF by 2D Simpsons Biplane is 64%. Normal wall motion. Right Ventricle Right ventricle size is normal. Normal systolic function. Left Atrium Left atrium is moderately dilated. Right Atrium Right atrium size is normal. IVC/SVC IVC was not assessed. Mitral Valve Valve structure is normal. No regurgitation. No stenosis noted. Tricuspid Valve Valve structure is normal. Trace regurgitation. Aortic Valve Trileaflet. No cusp thickening. No cusp calcification. No regurgitation. No stenosis. Pulmonic Valve Valve structure is normal. Trace regurgitation. Ascending Aorta Normal sized sinuses of Valsalva and ascending aorta. Pericardium No pericardial effusion. Septum Interatrial septum was not assessed. Pulmonary Artery Pulmonary artery was not assessed. Study Details Image quality: poor. Heart rate: 72 bpm. Blood pressure: 121/68 mmHg. Technical qualifiers: Technically difficult study. Ultrasound enhancement agent was given to enhance imaging. Resting ECG The ECG shows normal sinus rhythm. Resting ECG shows no ST-segment deviation. ECG demonstrates left anterior fascicular block. Stress Findings A pharmacological stress test was performed using dobutamine. Low level exercise was used during the pharmacological stress test. Hemodynamics are adequate for diagnosis. Blood pressure demonstrated a normal response and heart rate demonstrated a normal response to stress. The patient's heart rate recovery was normal. The patient reported no symptoms prior to the stress test. The patient reported no symptoms during the stress test. The patient achieved the target heart rate. Stress ECG Arrhythmias during stress: occasional PVCs. No ST depression was noted. There were no noted arrhythmias during recovery. There were no ST changes during recovery. Conclusion: The dobutamine stress EKG is normal. Echo Post Stress Left ventricle cavity size is decreased post-stress. Compared to baseline, the post-stress left ventricle systolic function is improved. The EF is 75 - 80%. The post-stress echo showed no new wall motion abnormalities. Study Impression Normal stress echocardiogram. No echocardiographic evidence of ischemia. Wall Scoring Baseline Score Index: 1.00 The left ventricular wall motion is normal. Wall Scoring Peak Dose Score Index: 1.00 The left ventricular wall motion is globally hyperkinetic. CV EPIPHANY Basophil percentageOrdered B y: Chelle Troncoso on 07-13-2023 Bilirubin [Mass/Vol] 0.30 mg/dL 0.20-1.00 [facility] Comment on above: For patients on eltr ombopag therapy, use of Dimension [place] TBIL is not recommended. Chloride [Moles/Vol] 116 mmol/L 98-107 [facility] Cholesterol [Mass/Vol] 96 mg/dL <200 [facility] Comment on above: <200 mg/dL Desirable 200-240 mg/dL Borderline >240 mg/dL High Risk Glucose [Mass/Vol] 122 mg/dL 74-106 [facility] Comment on above: Fasting Glucose resu lt from 100 to 125 mg/dL suggests IMPAIRED HOMEOSTASIS per A.D.A. criteria. Hemoglobin (Bld) [Mass/Vol] 10.1 g/dL 13.0-16.5 [facility] Potassium [Moles/Vol] 4.4 mmol/L 3.5-5.1 [facility] Protein [Mass/Vol] 5.8 g/dL 6.4-8.2 [facility] Sodium [Moles/Vol] 144 mmol/L 136-145 [facility] Triglyceride [Mass/Vol] 88 mg/dL <199 [facility] Comment on above: The drugs N-Acetylcy steine and Metamizole may falsely depress this assay.Serum Triglycerides Reference Interval Normal <150 mg/dL Borderline high 150 - 199 mg/dL High 200 - 499 mg/dL Very High > or = 500 mg/dL WBC (Bld) [#/Vol] 4.8 10*3/uL 4.4-11.0 [facility] Determination of erythrocyte mean corpuscular volume (MCV)Ordered By: Chelle Troncoso on 07-13-2023 MCV (RBC) [Entitic vol] 98.2 fL 80-94 [facility] Erythrocyte distribution wid th ratioOrdered By: Chelle Troncoso on 07-13-2023 Erythrocyte distribution width (RBC) [Ratio] 14.9 % 11.6-14.6 [facility] Erythrocyte distribution wid th standard deviationOrdered By: Chelle Troncoso on 07-13-2023 Erythrocyte distribution width (RBC) [Entitic vol] 53.7 fL 35.1-43.9 [facility] Erythrocyte sedimentation ra teOrdered By: Chelle Troncoso on 07-13-2023 ESR (Bld) [Velocity] 7 mm/h 0-20 [facility] Hematocrit Auto (Bld) [Volum e fraction]Ordered By: Chelle Troncoso on 07-13-2023 Hematocrit (Bld) [Volume fraction] 33.5 % 40-54 [facility] Laboratory - Chemistry and C hemistry - challengeOrdered By: Chelle Troncoso on 07-13-2023 Albumin/Globulin [Mass ratio] 1.1 {ratio} 0.9-2.4 [facility] ALP [Catalytic activity/Vol] 90 U/L 45-117 [facility] ALT [Catalytic activity/Vol] 18 U/L 16-61 [facility] Cholesterol in HDL [Mass/Vol] 40 mg/dL >40 [facility] Comment on above: The drugs N-Acetylcy steine and Metamizole may falsely depress this assay. Reference Range HDL <40 mg/dL Low HDL Cholesterol HDL >or= 60 mg/dL High HDL Cholesterol Cholesterol in LDL [Mass/Vol] 38 mg/dL 0-130 [facility] CO2 [Moles/Vol] 25.0 mmol/L 21.0-32.0 [facility] Globulin (S) [Mass/Vol] 2.8 g/dL 2.2-4.2 [facility] Urea nitrogen/Creatinine [Mass ratio] 20.7 mg/mg 10-20 [facility] - Hematology and Cell countsOrdered By: Chelle Troncoso on 07-13-2023 MCH (RBC) [Entitic mass] 29.6 pg 27.0-32.0 [facility] MCHC (RBC) [Mass/Vol] 30.1 g/dL 32-36 [facility] Platelet mean volume (Bld) [Entitic vol] 10.9 fL 6.2-12.0 [facility] Platelets (Bld) [#/Vol] 201 10*3/uL 150-450 [facility] No Panel InformationOrdered By: Chelle Troncoso on 07-13-2023 C-Reactive Protein Extended Range < 2.90 mg/L 0.0-3.0 [facility] Comment on above: C-Reactive Protein ( CRP) provides useful information for thediagnosis, therapy and monitoring of inflammatory processesand associated diseases. For the evaluation of Relative Riskfor Cardiovascular Disease, a High Sensitivity CRP (HSCRP)should be ordered. Estimated GFR (MDRD) Amer 85 mL/min >60 [facility] Comment on above: GFR Calc Estimated GFR (MDRD) Non-Af Amer 70 mL/min >60 [facility] Comment on above: Non- GFR Calc VLDL Cholesterol 18 mg/dL 5-40 [facility] RBC Auto (Bld) [#/Vol]Ordere d By: Chelle Troncoso on 07-13-2023 RBC (Bld) [#/Vol] 3.41 10*6/uL 4.6-6.2 [facility] Serum or plasma calcium william urement (mass/volume)Ordered By: Chelle Troncoso on 07-13-2023 Calcium [Mass/Vol] 8.5 mg/dL 8.5-10.1 [facility] Serum or plasma creatinine m easurement (mass/volume)Ordered By: Chelle Troncoso on 07-13-2023 Creatinine [Mass/Vol] 1.11 mg/dL 0.70-1.30 [facility] Comment on above: The validity of the calculated GFR & GFRAA in patients over 70 years has not been determined. Clinical correlation is essential. Serum or plasma urea nitroge n measurement (mass/volume)Ordered By: Chelle Troncoso on 07-13-2023 Urea nitrogen [Mass/Vol] 23 mg/dL 7-18 [facility] Thin prep Papanicolaou smear with manual screeningOrdered By: Chelle Troncoso on 07-13-2023 Thin prep Papanicolaou smear with manual screening 3.0 g/dL 3.2-5.0 [facility] Thin prep Papanicolaou smear with manual screening 7 U/L 15-37 [facility] Thin prep Papanicolaou smear with manual screening 3 5-15 [facility] Whole blood hemoglobin A1c/t otal hemoglobin ratio (mass fraction)Ordered By: Chelle Troncoso on 07-13-2023 HbA1c (Bld) [Mass fraction] 7.7 % 3.8-5.6 [facility] Comment on above: Normal < 5.7 % Predi abetic 5.7 - 6.4 % Diabetic >or= 6.5 % Please note range changes. CNCOon 05-08-2023 CNCO Letter Text Normal [facility] Basophil percentageOrdered B y: Chelle Troncoso on 05-02-2023 Chloride [Moles/Vol] 111 mmol/L 98-107 [facility] Cholesterol [Mass/Vol] 96 mg/dL <200 [facility] Comment on above: <200 mg/dL Desirable 200-240 mg/dL Borderline >240 mg/dL High Risk Glucose [Mass/Vol] 118 mg/dL 74-106 [facility] Comment on above: Fasting Glucose resu lt from 100 to 125 mg/dL suggests IMPAIRED HOMEOSTASIS per A.D.A. criteria. Potassium [Moles/Vol] 4.7 mmol/L 3.5-5.1 [facility] Comment on above: Slight Hemolysis, Re sult may be falsely increased. Sodium [Moles/Vol] 142 mmol/L 136-145 [facility] Triglyceride [Mass/Vol] 86 mg/dL <199 [facility] Comment on above: The drugs N-Acetylcy steine and Metamizole may falsely depress this assay.Serum Triglycerides Reference Interval Normal <150 mg/dL Borderline high 150 - 199 mg/dL High 200 - 499 mg/dL Very High > or = 500 mg/dL Laboratory - Chemistry and C hemistry - challengeOrdered By: Chelle Troncoso on 05-02-2023 Cholesterol in HDL (Body fld) [Mass/Vol] 46 mg/dL >40 [facility] Comment on above: The drugs N-Acetylcy steine and Metamizole may falsely depress this assay. Reference Range HDL <40 mg/dL Low HDL Cholesterol HDL >or= 60 mg/dL High HDL Cholesterol Cholesterol in LDL (Body fld) [Moles/Vol] 33 mg/dL 0-130 [facility] Cholesterol in VLDL Calc [Moles/Vol] 17 mg/dL 5-40 [facility] CO2 [Moles/Vol] 26.0 mmol/L 21.0-32.0 [facility] Urea nitrogen/Creatinine [Mass ratio] 17.0 mg/mg 10-20 [facility] No Panel InformationOrdered By: Chelle Troncoso on 05-02-2023 Estimated GFR (MDRD) Amer 96 mL/min >60 [facility] Comment on above: GFR Calc Estimated GFR (MDRD) Non-Af Amer 79 mL/min >60 [facility] Comment on above: Non- GFR Calc Serum or plasma calcium william urement (mass/volume)Ordered By: Chelle Troncoso on 05-02-2023 Calcium [Mass/Vol] 9.1 mg/dL 8.5-10.1 [facility] Serum or plasma creatinine m easurement (mass/volume)Ordered By: Chelle Troncoso on 05-02-2023 Creatinine [Mass/Vol] 1.00 mg/dL 0.70-1.30 [facility] Comment on above: The validity of the calculated GFR & GFRAA in patients over 70 years has not been determined. Clinical correlation is essential. Serum or plasma urea nitroge n measurement (mass/volume)Ordered By: Chelle Troncoso on 05-02-2023 Urea nitrogen [Mass/Vol] 17 mg/dL 7-18 [facility] Thin prep Papanicolaou smear with manual screeningOrdered By: Chelle Troncoso on 05-02-2023 Thin prep Papanicolaou smear with manual screening 5 5-15 [facility] Whole blood hemoglobin A1c/t otal hemoglobin ratio (mass fraction)Ordered By: Chelle Troncoso on 05-02-2023 HbA1c (Bld) [Mass fraction] 7.6 % 3.8-5.6 [facility] Comment on above: Normal < 5.7 % Predi abetic 5.7 - 6.4 % Diabetic >or= 6.5 % Please note range changes. CBC panel Auto (Bld)Ordered By: Hang Stoner on 04-24-2023 Erythrocyte distribution width (RBC) [Ratio] 15.0 % High 11.5 - 14.5 % [facility] Hematocrit (Bld) [Volume fraction] 31.7 % Low 40.0 - 52.0 % [facility] Hemoglobin (Bld) [Mass/Vol] 10.5 g/dL Low 13.0 - 18.0 g/dL [facility] Interpretation and review of laboratory results Abnormal [facility] MCH (RBC) [Entitic mass] 29.4 pg 26. 0 - 34.0 pg [facility] MCHC (RBC) [Mass/Vol] 33.1 % 32.0 - 36.0 % [facility] MCV (RBC) [Entitic vol] 88.9 fL 80.0 - 98.0 fL [facility] Platelet mean volume (Bld) [Entitic vol] 8.2 fL 7.4 - 12.4 fL [facility] Platelets (Bld) [#/Vol] 166 10*3/uL 140 - 440 10*3/uL [facility] RBC (Bld) [#/Vol] 3.57 10*6/uL Low 4.40 - 5.9 0 10*6/uL [facility] WBC (Bld) [#/Vol] 5.6 10*3/uL 3.6 - 10.7 10*3/uL [facility] Comprehensive metabolic 1998 panelon 04-24-2023 Albumin [Mass/Vol] 3.3 g/dL Low 3.5 - 5.0 g/dL [facility] ALP [Catalytic activity/Vol] 78 U/L 38 - 126 U/L [facility] ALT [Catalytic activity/Vol] 15 U/L 0 - 49 U/L [facility] Anion gap [Moles/Vol] 8 mmol/L 3 - 13 mmol/L [facility] AST [Catalytic activity/Vol] 14 U/L Low 15 - 46 U/L [facility] Bilirubin [Mass/Vol] 0.2 mg/dL 0.2 - 1 .3 mg/dL [facility] Calcium [Mass/Vol] 8.7 mg/dL 8.4 - 10. 4 mg/dL [facility] Chloride [Moles/Vol] 107 mmol/L 98 - 10 7 mmol/L [facility] CO2 [Moles/Vol] 25 mmol/L 22 - 30 mmol/L [facility] Creatinine [Mass/Vol] 0.80 mg/dL 0.66 - 1.25 mg/dL [facility] GFR/1.73 sq M.predicted MDRD (S/P/Bld) [Vol rate/Area] - PINF [facility] Comment on above: Calculation based on the Chronic Kidney Disease Epidemiology Collaboration (CKD-EPI) equation refit without adjustment for race Glucose [Mass/Vol] 189 mg/dL High 70 - 100 mg/dL [facility] Potassium [Moles/Vol] 4.4 mmol/L 3.5 - 5.1 mmol/L [facility] Protein [Mass/Vol] 5.7 g/dL Low 6.3 - 8.2 g/dL [facility] Sodium [Moles/Vol] 140 mmol/L 135 - 145 mmol/L [facility] Urea nitrogen [Mass/Vol] 19 mg/dL 9 - 20 mg/dL [facility] Laboratory - Chemistry and C hemistry - challengeon 04-24-2023 Glucose [Mass/Vol] 159 mg/dL High 70 - 100 mg/dL [facility] Glucose [Mass/Vol] 164 mg/dL High 70 - 100 mg/dL [facility] Troponin I.cardiac [Mass/Vol] ng/[facility] Troponin I.cardiac [Mass/Vol] ng/mL [facility] ng/mL [facility] Lipid 1996 panelon Cholesterol [Mass/Vol] 82 mg/dL NINF - 200 mg/dL [facility] Cholesterol in HDL [Mass/Vol] 37 mg/dL Low 40 - 60 mg/dL [facility] Cholesterol in LDL [Mass/Vol] 27 mg/dL 0 - <100 [facility] Cholesterol.total/Choles terol in HDL [Mass ratio] 2 {ratio} [facility] Comment on above: Ref Range: < 3 Low Risk for CHD 3-6 Mod Risk for CHD > 6 High Risk for CHD Triglyceride [Mass/Vol] 89 mg/dL NINF - 150 mg/dL [facility] No Panel Informationon 04-24 Interpretation and review of laboratory results Abnormal [facility] Performed by: Nicole Vazquez, [address] [place] [id number] [id number]: [id number] [facility] Interpretation and review of laboratory results Abnormal [facility] Performed by: Nicole Vazquez, [address] [place] [id number] CLIA ID: [id number] [employer] SINUS RHYTHM PROBABLE LEFT ATRIAL ABNORMALITY NONSPECIFIC INTRAVENTRICULAR CONDUCTION DELAY Electronically Signed On 04-24-2023 04:58:43 EST by Gerardo Pinto CV Gerardo Stoll MD - 04/24/2023 IMPRESSION: SINUS RHYTHM PROBABLE LEFT ATRIAL ABNORMALITY NONSPECIFIC INTRAVENTRICULAR CONDUCTION DELAY Electronically Signed On 04-24-2023 04:58:43 EST by Gerardo Pinto [facility] Interpretation and review of laboratory results Abnormal [facility] No Panel InformationOrdered By: Gerardo Pinto on 04-24-2023 P [place] 0 degrees [employer] Work Phone: [place] Interval 168 ms [employer] Work Phone: QRS [place] -34 degrees [employer] Work Phone: QRSD Interval 118 ms [employer] Work Phone: QT Interval 440 ms [employer] Work Phone: QTC Interval 458 ms [employer] Work Phone: T Wave [place] 102 degrees [employer] Work Phone: [employer] Work Phone: Troponin I.cardiac [Mass/Vol ]on 04-24-2023 Interpretation and review of laboratory results Normal [facility] Patients with high levels of Biotin oral intake (ie >5 mg/day) may have falsely decreased Troponin levels. [employer] Interpretation and review of laboratory results Normal [facility] Patients with high levels of Biotin oral intake (ie >5 mg/day) may have falsely decreased Troponin levels. [facility] Vital signsOrdered By: Gerardo nieves on 04-24-2023 Heart rate 65 /min bpm [employer] Work Phone: Basic metabolic 1998 panelon 04-23-2023 Anion gap [Moles/Vol] 7 mmol/L 3 - 13 mmol/L [employer] Calcium [Mass/Vol] 8.9 mg/dL 8.4 - 10. 4 mg/dL [employer] Chloride [Moles/Vol] 105 mmol/L 98 - 10 7 mmol/L [facility] CO2 [Moles/Vol] 25 mmol/L 22 - 30 mmol/L [facility] Creatinine [Mass/Vol] 0.86 mg/dL 0.66 - 1.25 mg/dL [facility] GFR/1.73 sq M.predicted MDRD (S/P/Bld) [Vol rate/Area] - PINF [facility] Comment on above: Calculation based on the Chronic Kidney Disease Epidemiology Collaboration (CKD-EPI) equation refit without adjustment for race Glucose [Mass/Vol] 217 mg/dL High 70 - 100 mg/dL [facility] Interpretation and review of laboratory results Abnormal [facility] Potassium [Moles/Vol] 4.6 mmol/L 3.5 - 5.1 mmol/L [facility] Sodium [Moles/Vol] 138 mmol/L 135 - 145 mmol/L [facility] Urea nitrogen [Mass/Vol] 18 mg/dL 9 - 20 mg/dL [facility] CBC W Auto Differential pane l (Bld)Ordered By: Papo Christopher on 04-23-2023 Basophils (Bld) [#/Vol] 0.0 10*3/uL 0.0 - 0.2 10*3/uL [facility] Basophils/100 WBC (Bld) 0.8 % 0.0 - 2.0 % [facility] Eosinophils (Bld) [#/Vol] 0.1 10*3/uL 0.0 - 0.5 10*3/uL [facility] Eosinophils/100 WBC (Bld) 2.5 % 1.0 - 6.0 % [facility] Erythrocyte distribution width (RBC) [Ratio] 14.9 % High 11.5 - 14.5 % [facility] Hematocrit (Bld) [Volume fraction] 34.3 % Low 40.0 - 52.0 % [facility] Hemoglobin (Bld) [Mass/Vol] 11.5 g/dL Low 13.0 - 18.0 g/dL [facility] Interpretation and review of laboratory results Abnormal [facility] Lymphocytes (Bld) [#/Vol] 1.1 10*3/uL 1.0 - 4.3 10*3/uL [facility] Lymphocytes/100 WBC (Bld) 20.0 % 20.0 - 40.0 % [facility] MCH (RBC) [Entitic mass] 29.7 pg 26. 0 - 34.0 pg [facility] MCHC (RBC) [Mass/Vol] 33.5 % 32.0 - 36.0 % [facility] MCV (RBC) [Entitic vol] 88.5 fL 80.0 - 98.0 fL [facility] Monocytes (Bld) [#/Vol] 0.5 10*3/uL 0.0 - 0.8 10*3/uL [facility] Monocytes/100 WBC (Bld) 10.0 % 2.0 - 10.0 % [facility] Neutrophils (Bld) [#/Vol] 3.6 10*3/uL 1.8 - 7.0 10*3/uL [facility] Neutrophils/100 WBC (Bld) 66.7 % 40.0 - 80.0 % [facility] Nucleated RBC/100 WBC (Bld) [Ratio] 0.1 % [facility] Platelet mean volume (Bld) [Entitic vol] 8.5 fL 7.4 - 12.4 fL [facility] Platelets (Bld) [#/Vol] 192 10*3/uL 140 - 440 10*3/uL [facility] RBC (Bld) [#/Vol] 3.87 10*6/uL Low 4.40 - 5.9 0 10*6/uL [facility] WBC (Bld) [#/Vol] 5.4 10*3/uL 3.6 - 10.7 10*3/uL [facility] Laboratory - Chemistry and C hemistry - challengeon 04-23-2023 Troponin I.cardiac [Mass/Vol] ng/[facility] ng/mL [facility] Troponin I.cardiac [Mass/Vol ]on 04-23-2023 Interpretation and review of laboratory results Normal [facility] Patients with high levels of Biotin oral intake (ie >5 mg/day) may have falsely decreased Troponin levels. [facility] XR Chest Single viewon 04-23 1. No acute findings. Report Dictated on Electronically Signed By: Primo Millan MD Electronically Signed Date/Time: 04/23/2023 8:42 PM [facility] [employer] SYSTEM Patient Name: JAMES REYES : 1955 Exam Date/Time: 04/23/2023 20:40 Procedure: XR CHEST 1 VIEW Ordering Provider: ARREOLA MARY Reason For Exam: cp CHEST PORTABLE CLINICAL INDICATION: cp TECHNIQUE: Portable chest x-ray(s). COMPARISON: December,. FINDINGS: Cardiac silhouette prominent, which may be due in part to technique, but stable. Lungs are grossly clear. No significant vascular congestion. No apparent pneumothorax. Bony thorax grossly unremarkable. [facility] EMERGENCY DEPARTMENT RADIOLOGY SYSTEM Primo Millan MD - 04/23/2023 Patient Name: JAMES REYES : 1955 Exam Date/Time: 04/23/2023 20:40 Procedure: XR CHEST 1 VIEW Ordering Provider: ARREOLA MARY Reason For Exam: cp CHEST PORTABLE CLINICAL INDICATION: cp TECHNIQUE: Portable chest x-ray(s). COMPARISON: December,. FINDINGS: Cardiac silhouette prominent, which may be due in part to technique, but stable. Lungs are grossly clear. No significant vascular congestion. No apparent pneumothorax. Bony thorax grossly unremarkable. IMPRESSION: 1. No acute findings. Report Dictated on Electronically Signed By: Primo Millan MD Electronically Signed Date/Time: 04/23/2023 8:42 PM EST [facility] Radiology Study observation (narrative) [facility] alth XR Chest Single viewOrdered By: Primo Millan on 04-23-2023 [facility] Work Phone: Basophil percentageOrdered B y: Chelle Troncoso on 12-01-2022 Bilirubin [Mass/Vol] 0.30 mg/dL 0.20-1.00 [facility] Comment on above: For patients on eltr ombopag therapy, use of Dimension [place] TBIL is not recommended. Chloride [Moles/Vol] 115 mmol/L 98-107 [facility] Glucose [Mass/Vol] 192 mg/dL 74-106 [facility] Comment on above: Fasting Glucose resu lt greater than or equal to 126 mg/dL suggests DIABETES MELLITUS per A.D.A. criteria. Potassium [Moles/Vol] 3.8 mmol/L 3.5-5.1 [facility] Protein [Mass/Vol] 5.6 g/dL 6.4-8.2 [facility] Sodium [Moles/Vol] 142 mmol/L 136-145 [facility] WBC (Bld) [#/Vol] 4.1 10*3/uL 4.4-11.0 [facility] Blood erythrocytes count (nu mber/volume)Ordered By: Chelle Troncoso on 12-01-2022 RBC (Bld) [#/Vol] 3.47 10*6/uL 4.6-6.2 [facility] Blood hemoglobin measurement (mass/volume)Ordered By: Chelle Troncoso on 12-01-2022 Hemoglobin (Bld) [Mass/Vol] 10.0 g/dL 13.0-16.5 [facility] Blood platelet mean volumeOr dered By: Chelle Troncoso on 12-01-2022 Platelet mean volume (Bld) [Entitic vol] 10.8 fL 6.2-12.0 [facility] Determination of erythrocyte mean corpuscular volume (MCV)Ordered By: Chelle Troncoso on 12-01-2022 MCV (RBC) [Entitic vol] 93.1 fL 80-94 [facility] Hematocrit Auto (Bld) [Volum e fraction]Ordered By: Chelle Troncoso on 12-01-2022 Hematocrit (Bld) [Volume fraction] 32.3 % 40-54 [facility] Laboratory - Chemistry and C hemistry - challengeOrdered By: Chelle Troncoso on 12-01-2022 ALP [Catalytic activity/Vol] 102 U/L 45-117 [facility] ALT [Catalytic activity/Vol] 17 U/L 16-61 [facility] CO2 [Moles/Vol] 23.0 mmol/L 21.0-32.0 [facility] Globulin (S) [Mass/Vol] 2.7 g/dL 2.2-4.2 [facility] Lipase [Catalytic activity/Vol] 11 U/L 13-75 [facility] Comment on above: Please note:LIPASE r evised reference range effective 22. New Lipase methodology. Expected to produce lower values than the previous assay method. NEW Reference Range: 13 - 75 U/L Magnesium [Mass/Vol] 2.0 mg/dL 1.6-2.6 [facility] Urea nitrogen/Creatinine [Mass ratio] 15.6 mg/mg 10-20 [facility] Laboratory - Hematology and Cell countsOrdered By: Chelle Troncoso on 12-01-2022 Erythrocyte distribution width (RBC) [Entitic vol] 50.5 fL 35.1-43.9 [facility] Erythrocyte distribution width (RBC) [Ratio] 14.7 % 11.6-14.6 [facility] MCH (RBC) [Entitic mass] 28.8 pg 27.0-32.0 [facility] MCHC Auto (RBC) [Mass/Vol]Or dered By: Chelle Troncoso on 12-01-2022 MCHC (RBC) [Mass/Vol] 31.0 g/dL 32-36 [facility] No Panel InformationOrdered By: Chelle Troncoso on 12-01-2022 Estimated GFR (MDRD) Amer 72 mL/min >60 [facility] Comment on above: GFR Calc Estimated GFR (MDRD) Non-Af Amer 60 mL/min >60 [facility] Comment on above: Non- GFR Calc Platelets bldOrdered By: Costa Troncoso on 12-01-2022 Platelets (Bld) [#/Vol] 215 10*3/uL 150-450 [facility] Serum or plasma albumin william urement (mass/volume)Ordered By: Chelle Troncoso on 12-01-2022 Albumin [Mass/Vol] 2.9 g/dL 3.2-5.0 [facility] Serum or plasma albumin/glob ulin mass ratioOrdered By: Chelle Troncoso on 12-01-2022 Albumin/Globulin [Mass ratio] 1.1 {ratio} 0.9-2.4 [facility] Serum or plasma calcium william urement (mass/volume)Ordered By: Chelle Troncoso on 12-01-2022 Calcium [Mass/Vol] 8.7 mg/dL 8.5-10.1 [facility] Serum or plasma creatinine m easurement (mass/volume)Ordered By: Chelle Troncoso on 12-01-2022 Creatinine [Mass/Vol] 1.28 mg/dL 0.70-1.30 [facility] Comment on above: The validity of the calculated GFR & GFRAA in patients over 70 years has not been determined. Clinical correlation is essential. Serum or plasma urea nitroge n measurement (mass/volume)Ordered By: Chelle Troncoso on 12-01-2022 Urea nitrogen [Mass/Vol] 20 mg/dL 7-18 [facility] Thin prep Papanicolaou smear with manual screeningOrdered By: Chelle Troncoso on 12-01-2022 Thin prep Papanicolaou smear with manual screening 9 U/L 15-37 [facility] Thin prep Papanicolaou smear with manual screening 4 5-15 [facility] Basophil percentageOrdered B y: Chelle Troncoso on 10-13-2022 Bilirubin [Mass/Vol] 0.30 mg/dL 0.20-1.00 [facility] Comment on above: For patients on eltr ombopag therapy, use of Dimension [place] TBIL is not recommended. Chloride [Moles/Vol] 110 mmol/L 98-107 [facility] Cholesterol [Mass/Vol] 78 mg/dL <200 [facility] Comment on above: <200 mg/dL Desirable 200-240 mg/dL Borderline >240 mg/dL High Risk Glucose [Mass/Vol] 237 mg/dL 74-106 [facility] Comment on above: Glucose result great er than or equal to 200 mg/dLsuggests DIABETES MELLITUS per A.D.A. criteria. Potassium [Moles/Vol] 4.4 mmol/L 3.5-5.1 [facility] Protein [Mass/Vol] 5.9 g/dL 6.4-8.2 [facility] Sodium [Moles/Vol] 141 mmol/L 136-145 [facility] Triglyceride [Mass/Vol] 79 mg/dL <199 [facility] Comment on above: The drugs N-Acetylcy steine and Metamizole may falsely depress this assay.Serum Triglycerides Reference Interval Normal <150 mg/dL Borderline high 150 - 199 mg/dL High 200 - 499 mg/dL Very High > or = 500 mg/dL WBC (Bld) [#/Vol] 5.4 10*3/uL 4.4-11.0 [facility] Blood erythrocytes count (nu mber/volume)Ordered By: hCelle Troncoso on 10-13-2022 RBC (Bld) [#/Vol] 3.46 10*6/uL 4.6-6.2 [facility] Blood hemoglobin measurement (mass/volume)Ordered By: Chelle Troncoso on 10-13-2022 Hemoglobin (Bld) [Mass/Vol] 10.2 g/dL 13.0-16.5 [facility] Blood platelet mean volumeOr dered By: Chelle Troncoso on 10-13-2022 Platelet mean volume (Bld) [Entitic vol] 11.0 fL 6.2-12.0 [facility] Determination of erythrocyte mean corpuscular volume (MCV)Ordered By: Chelle Troncoso on 10-13-2022 MCV (RBC) [Entitic vol] 93.9 fL 80-94 [facility] Hematocrit Auto (Bld) [Volum e fraction]Ordered By: Chelle Troncoso on 10-13-2022 Hematocrit (Bld) [Volume fraction] 32.5 % 40-54 [facility] Laboratory - Chemistry and C hemistry - challengeOrdered By: Cehlle Troncoso on 10-13-2022 ALP [Catalytic activity/Vol] 100 U/L 45-117 [facility] ALT [Catalytic activity/Vol] 17 U/L 16-61 [facility] CO2 [Moles/Vol] 26.0 mmol/L 21.0-32.0 [facility] Globulin (S) [Mass/Vol] 2.9 g/dL 2.2-4.2 [facility] Urea nitrogen/Creatinine [Mass ratio] 23.5 mg/mg 10-20 [facility] Laboratory - Hematology and Cell countsOrdered By: Chelle Troncoso on 10-13-2022 Erythrocyte distribution width (RBC) [Entitic vol] 52.2 fL 35.1-43.9 [facility] Erythrocyte distribution width (RBC) [Ratio] 15.2 % 11.6-14.6 [facility] MCH (RBC) [Entitic mass] 29.5 pg 27.0-32.0 [facility] MCHC Auto (RBC) [Mass/Vol]Or dered By: Chelle Troncoso on 10-13-2022 MCHC (RBC) [Mass/Vol] 31.4 g/dL 32-36 [facility] No Panel InformationOrdered By: Chelle Troncoso on 10-13-2022 Estimated GFR (MDRD) Amer 67 mL/min >60 [facility] Comment on above: GFR Calc Estimated GFR (MDRD) Non-Af Amer 56 mL/min >60 [facility] Comment on above: Non- GFR Calc Platelets bldOrdered By: Costa Troncoso on 10-13-2022 Platelets (Bld) [#/Vol] 200 10*3/uL 150-450 [facility] Serum or plasma albumin william urement (mass/volume)Ordered By: Chelle Troncoso on 10-13-2022 Albumin [Mass/Vol] 3.0 g/dL 3.2-5.0 [facility] Serum or plasma albumin/glob ulin mass ratioOrdered By: Chelle Troncoso on 10-13-2022 Albumin/Globulin [Mass ratio] 1.0 {ratio} 0.9-2.4 [facility] Serum or plasma calcium william urement (mass/volume)Ordered By: Chelle Troncoso on 10-13-2022 Calcium [Mass/Vol] 8.4 mg/dL 8.5-10.1 [facility] Serum or plasma cholesterol in HDL measurement (mass/volume)Ordered By: Chelle Troncoso on 10-13-2022 Cholesterol in HDL [Mass/Vol] 40 mg/dL >40 [facility] Comment on above: The drugs N-Acetylcy steine and Metamizole may falsely depress this assay. Reference Range HDL <40 mg/dL Low HDL Cholesterol HDL >or= 60 mg/dL High HDL Cholesterol Serum or plasma cholesterol in VLDL measurement (mass/volume)Ordered By: Chelle Troncoso on 10-13-2022 Cholesterol in VLDL [Mass/Vol] 16 mg/dL 5-40 [facility] Serum or plasma creatinine m easurement (mass/volume)Ordered By: Chelle Troncoso on 10-13-2022 Creatinine [Mass/Vol] 1.36 mg/dL 0.70-1.30 [facility] Comment on above: The validity of the calculated GFR & GFRAA in patients over 70 years has not been determined. Clinical correlation is essential. Serum or plasma low density lipoprotein (LDL) cholesterol measurement (mass/volume)Ordered By: Chelle Troncoso on 10-13-2022 Cholesterol in LDL [Mass/Vol] 22 mg/dL 0-130 [facility] Serum or plasma urea nitroge n measurement (mass/volume)Ordered By: Chelle Troncoso on 10-13-2022 Urea nitrogen [Mass/Vol] 32 mg/dL 7-18 [facility] Thin prep Papanicolaou smear with manual screeningOrdered By: Chelle Troncoso on 10-13-2022 Thin prep Papanicolaou smear with manual screening 11 U/L 15-37 [facility] Thin prep Papanicolaou smear with manual screening 5 5-15 [facility] Whole blood hemoglobin A1c/t otal hemoglobin ratio (mass fraction)Ordered By: Chelle Troncoso on 10-13-2022 HbA1c (Bld) [Mass fraction] 7.6 % 3.8-5.6 [facility] Comment on above: Normal < 5.7 % Predi abetic 5.7 - 6.4 % Diabetic >or= 6.5 % Please note range changes. Basophil percentageOrdered B y: Chelle Troncoso on 10-12-2022 Bilirubin [Mass/Vol] 0.20 mg/dL 0.20-1.00 [facility] Comment on above: For patients on eltr ombopag therapy, use of Dimension [place] TBIL is not recommended. Chloride [Moles/Vol] 108 mmol/L 98-107 [facility] Cholesterol [Mass/Vol] 80 mg/dL <200 [facility] Comment on above: <200 mg/dL Desirable 200-240 mg/dL Borderline >240 mg/dL High Risk Glucose [Mass/Vol] 314 mg/dL 74-106 [facility] Comment on above: Glucose result great er than or equal to 200 mg/dLsuggests DIABETES MELLITUS per A.D.A. criteria. Potassium [Moles/Vol] 4.4 mmol/L 3.5-5.1 [facility] Protein [Mass/Vol] 5.9 g/dL 6.4-8.2 [facility] Sodium [Moles/Vol] 137 mmol/L 136-145 [facility] Triglyceride [Mass/Vol] 99 mg/dL <199 [facility] Comment on above: The drugs N-Acetylcy steine and Metamizole may falsely depress this assay.Serum Triglycerides Reference Interval Normal <150 mg/dL Borderline high 150 - 199 mg/dL High 200 - 499 mg/dL Very High > or = 500 mg/dL WBC (Bld) [#/Vol] 6.2 10*3/uL 4.4-11.0 [facility] Blood erythrocytes count (nu mber/volume)Ordered By: Chelle Troncoso on 10-12-2022 RBC (Bld) [#/Vol] 3.50 10*6/uL 4.6-6.2 [facility] Blood hemoglobin measurement (mass/volume)Ordered By: Chelle Troncoso on 10-12-2022 Hemoglobin (Bld) [Mass/Vol] 10.2 g/dL 13.0-16.5 [facility] Blood platelet mean volumeOr dered By: Chelle Troncoso on 10-12-2022 Platelet mean volume (Bld) [Entitic vol] 10.9 fL 6.2-12.0 [facility] Determination of erythrocyte mean corpuscular volume (MCV)Ordered By: Chelle Troncoso on 10-12-2022 MCV (RBC) [Entitic vol] 94.9 fL 80-94 [facility] Hematocrit Auto (Bld) [Volum e fraction]Ordered By: Chelle Troncoso on 10-12-2022 Hematocrit (Bld) [Volume fraction] 33.2 % 40-54 [facility] Laboratory - Chemistry and C hemistry - challengeOrdered By: Chelle Troncoso on 10-12-2022 ALP [Catalytic activity/Vol] 104 U/L 45-117 [facility] ALT [Catalytic activity/Vol] 20 U/L 16-61 [facility] CO2 [Moles/Vol] 25.0 mmol/L 21.0-32.0 [facility] Globulin (S) [Mass/Vol] 2.9 g/dL 2.2-4.2 [facility] Urea nitrogen/Creatinine [Mass ratio] 20.8 mg/mg 10-20 [facility] Laboratory - Hematology and Cell countsOrdered By: Chelle Troncoso on 10-12-2022 Erythrocyte distribution width (RBC) [Entitic vol] 52.6 fL 35.1-43.9 [facility] Erythrocyte distribution width (RBC) [Ratio] 15.1 % 11.6-14.6 [facility] MCH (RBC) [Entitic mass] 29.1 pg 27.0-32.0 [facility] MCHC Auto (RBC) [Mass/Vol]Or dered By: Chelle Troncoso on 10-12-2022 MCHC (RBC) [Mass/Vol] 30.7 g/dL 32-36 [facility] No Panel InformationOrdered By: Chelle Troncoso on 10-12-2022 Estimated GFR (MDRD) Amer 63 mL/min >60 [facility] Comment on above: GFR Calc Estimated GFR (MDRD) Non-Af Amer 52 mL/min >60 [facility] Comment on above: Non- GFR Calc Thyroid Stimulating Hormone (TSH) 2.41 uIU/mL 0.358-3.74 [facility] Vitamin D 25-Hydroxy 61.6 ng/mL [facility] Comment on above: Vitamin D 25(OH) Sta tus Range Deficiency <20 ng/mL (50nmol/L) Insufficiency 20 - 30 ng/mL (50 - 75 nmol/L) Sufficiency 30 - 100 ng/mL (75 - 250 nmol/L) Toxicity >100 ng/mL (>250 nmol/L) Platelets bldOrdered By: Costa Troncoso on 10-12-2022 Platelets (Bld) [#/Vol] 203 10*3/uL 150-450 [facility] Serum or plasma albumin william urement (mass/volume)Ordered By: Chelle Troncoso on 10-12-2022 Albumin [Mass/Vol] 3.0 g/dL 3.2-5.0 [facility] Serum or plasma albumin/glob ulin mass ratioOrdered By: Chelle Troncoso on 10-12-2022 Albumin/Globulin [Mass ratio] 1.0 {ratio} 0.9-2.4 [facility] Serum or plasma calcium william urement (mass/volume)Ordered By: Chelle Troncoso on 10-12-2022 Calcium [Mass/Vol] 8.5 mg/dL 8.5-10.1 [facility] Serum or plasma cholesterol in HDL measurement (mass/volume)Ordered By: Chelle Troncoso on 10-12-2022 Cholesterol in HDL [Mass/Vol] 36 mg/dL >40 [facility] Comment on above: The drugs N-Acetylcy steine and Metamizole may falsely depress this assay. Reference Range HDL <40 mg/dL Low HDL Cholesterol HDL >or= 60 mg/dL High HDL Cholesterol Serum or plasma cholesterol in VLDL measurement (mass/volume)Ordered By: Chelle Troncoso on 10-12-2022 Cholesterol in VLDL [Mass/Vol] 20 mg/dL 5-40 [facility] Serum or plasma creatinine m easurement (mass/volume)Ordered By: Chelle Troncoso on 10-12-2022 Creatinine [Mass/Vol] 1.44 mg/dL 0.70-1.30 [facility] Comment on above: The validity of the calculated GFR & GFRAA in patients over 70 years has not been determined. Clinical correlation is essential. Serum or plasma low density lipoprotein (LDL) cholesterol measurement (mass/volume)Ordered By: Chelle Troncoso on 10-12-2022 Cholesterol in LDL [Mass/Vol] 24 mg/dL 0-130 [facility] Serum or plasma urea nitroge n measurement (mass/volume)Ordered By: Chelle Troncoso on 10-12-2022 Urea nitrogen [Mass/Vol] 30 mg/dL 7-18 [facility] Thin prep Papanicolaou smear with manual screeningOrdered By: Chelle Troncoso on 10-12-2022 Thin prep Papanicolaou smear with manual screening 11 U/L 15-37 [facility] Thin prep Papanicolaou smear with manual screening 4 5-15 [facility] Whole blood hemoglobin A1c/t otal hemoglobin ratio (mass fraction)Ordered By: Chelle Troncoso on 10-12-2022 HbA1c (Bld) [Mass fraction] 7.6 % 3.8-5.6 [facility] Comment on above: Normal < 5.7 % Predi abetic 5.7 - 6.4 % Diabetic >or= 6.5 % Please note range changes. US Heart TransthoracicOrdere d By: Suzy Corcoran on 04-27-2022 Aortic Arch 2.9 cm [employer] Work Phone: Aortic Sinus Valsalva 3.8 cm [facility] Work Phone: Aortic Sinus Valsalva Index 1.50 cm/m2 [facility] Work Phone: Ascending Aorta 3.7 cm [facility] Work Phone: Ascending Aorta Index 1.46 cm/m2 [facility] Work Phone: E/E' Lateral 6.85 [facility] [employer] Work Phone: E/E' Ratio (Averaged) 8.99 [facility] [employer] Work Phone: E/E' Septal 11.13 [facility] [employer] Work Phone: EF BP 75 % 55 - 100 % [facility] Work Phone: Fractional Shortening 2D 24 % 28 - 44 % [facility] [employer] Work Phone: Interpretation and review of laboratory results Abnormal [facility] Work Phone: IVC Diameter 1.7 cm [facility] Work Phone: IVSd 1.9 cm Abnormal 0.6 - 1.0 cm [facility] [employer] Work Phone: LA Diameter 5.0 cm [facility] [employer] Work Phone: LA Size Index 1.97 cm/m2 [facility] [employer] Work Phone: LA Volume 2C 49 mL 18 - 58 mL [facility] [employer] Work Phone: LA Volume 4C 93 mL Abnormal 18 - 58 mL [facility] [employer] Work Phone: LA Volume A/L 74 mL [facility] [employer] Work Phone: LA Volume Index 2C 19 mL/m2 16 - 34 mL/m2 [facility] [employer] Work Phone: LA Volume Index 4C 37 mL/m2 Abnormal 16 - 34 mL/m2 [facility] [employer] Work Phone: LA Volume Index A/L 29 mL/m2 16 - 34 mL/m2 [facility] Work Phone: LV E' Lateral Velocity 13 cm/s [facility] Work Phone: LV E' Septal Velocity 8 cm/s [facility] Work Phone: LV EDV A2C 93 mL [facility] Work Phone: LV EDV A4C 147 mL [facility] Work Phone: LV EDV BP 124 mL 67 - 155 mL [facility] Work Phone: LV EDV Index A2C 37 mL/m2 [facility] Work Phone: LV EDV Index A4C 58 mL/m2 [facility] Work Phone: LV EDV Index BP 49 mL/m2 [facility] Work Phone: LV Ejection Fraction A2C 84 % [facility] Work Phone: LV Ejection Fraction A4C 67 % [facility] Work Phone: LV ESV A2C 15 mL [facility] Work Phone: LV ESV A4C 49 mL [facility] Work Phone: LV ESV BP 30 mL 22 - 58 mL [facility] Work Phone: LV ESV Index A2C 6 mL/m2 [facility] Work Phone: LV ESV Index A4C 19 mL/m2 [facility] Work Phone: LV ESV Index BP 12 mL/m2 [facility] Work Phone: LV Mass 2D 381.1 g Abnormal 88 - 224 g [facility] Work Phone: LV Mass 2D Index 150.0 g/m2 Abnormal 49 - 115 g/m2 [facility] Work Phone: LV RWT Ratio 0.95 [facility] Work Phone: LVIDd 4.2 cm 4.2 - 5.9 cm [facility] Work Phone: LVIDd Index 1.65 cm/m2 [facility] Work Phone: LVIDs 3.2 cm [facility] Work Phone: LVIDs Index 1.26 cm/m2 [facility] Work Phone: LVOT Area 4.2 cm2 [facility] Work Phone: LVOT Cardiac Output 8.0 liter/mi nut e [facility] Work Phone: LVOT Diameter 2.3 cm [facility] Work Phone: LVOT Mean Gradient 4 mmHg [facility] Work Phone: LVOT Peak Gradient 9 mmHg [facility] Work Phone: LVOT Peak Velocity 1.5 m/s [facility] [employer] Work Phone: LVOT Stroke Volume Index 45.8 mL/m2 [facility] Work Phone: LVOT SV 116.3 ml [facility] Work Phone: LVOT VTI 28.0 cm [facility] Work Phone: LVPWd 2.0 cm Abnormal 0.6 - 1.0 cm [facility] Work Phone: MV A Velocity 0.59 m/s [facility] Work Phone: MV E Velocity 0.89 m/s [facility] Work Phone: MV E Wave Deceleration Time 270.2 ms [facility] Work Phone: MV E/A 1.51 [facility] Work Phone: RV Basal Dimension 3.1 cm [facility] Work Phone: RV Free Wall Peak S' 9 cm/s [facility] Work Phone: RV Mid Dimension 2.6 cm [facility] Work Phone: Sinotubular Junction 3.1 cm [facility] Work Phone: TAPSE 2.2 cm 1.7 cm [facility] Work Phone: [facility] Work Phone: Heart Transthoracicon Left Ventricle: Left ventricle size is normal. Severely increased wall thickness. Normal left ventricular systolic function. EF by 2D Simpsons Biplane is 75%. Normal wall motion. Right Ventricle: Not well visualized. Right ventricle size is normal. Lead present in the right ventricle. Normal systolic function. Right Atrium: Right atrium is mildly dilated. Lead present in the right atrium. Aorta: Normal sized sinuses of Valsalva. Mildly dilated ascending aorta. Ao ascending diameter is 3.7 cm. Technically difficult study. The valvular structures are poorly visualized. No gross dysfunction on Doppler studies Left Ventricle Left ventricle size is normal. Severely increased wall thickness. Normal left ventricular systolic function. EF by 2D Simpsons Biplane is 75%. Normal wall motion. Right Ventricle Not well visualized. Right ventricle size is normal. Lead present in the right ventricle.Normal systolic function. Left Atrium Left atrium size is normal (LA volume index 16-34 mL/m2). Right Atrium Right atrium is mildly dilated. Lead present in the right atrium. IVC/SVC IVC was not well visualized. IVC size is normal. IVC diameter is normal and decreases greater than 50% during inspiration; therefore the estimated right atrial pressure is normal (~3 mmHg). Mitral Valve Valve structure is normal. Mild annular calcification (posterior). Trace regurgitation. No stenosis noted. Tricuspid Valve Valve structure is normal. No regurgitation. Aortic Valve Not well visualized. Trileaflet. No cusp thickening. No cusp calcification. No regurgitation. No stenosis. Pulmonic Valve The pulmonic valve visualization is suboptimal but appears to be functioning normally. No regurgitation. Ascending Aorta Normal sized sinuses of Valsalva. Mildly dilated ascending aorta. Ao ascending diameter is 3.7 cm. Pericardium Evidence of prominent epicardial fat. No pericardial effusion. Septum Interatrial septum was not well visualized. Study Details Image quality: poor. Heart rate: 67 bpm. Blood pressure: 108/60 mmHg. Technical qualifiers: Technically difficult study with poor endocardial visualization and technically difficult study due to patient's body habitus. Ultrasound enhancement agent was given to enhance imaging. Echo Additional Conclusions Technically difficult study. CV CPACS [facility]on 07-28-2021 [facility] HNO ID: [id number] Author: RT Wagner(R) Service: ? Author Type: [employer] Library Clerk Type: Allied Health Filed: 07/28/2021 11:34 AM Note Text: Radiology Service Progress Note PATIENT NAME: James Reyes DATE OF SERVICE: July 28, 2021 TIME: 11:34 AM PATIENT IDENTITY VERIFICATION COMPLETED USING TWO (2) IDENTIFIERS: Name and Date of confirmed by patient verbally and Name and Date of confirmed by identification band. FALL SCREENING: Has the patient had 2 falls in the last year or 1 fall with injury or currently using an Ambulatory Assistive Device (Walker, Cane, Wheelchair, Crutches, etc.)? Inpatient: Screened on floor PATIENT GENDER DATA: Male PATIENT RELEVANT IMPLANT DATA REVIEWED: Not Applicable RADIOLOGY DEPARTMENT: General X-ray: Exam(s) Completed: Chest X-Ray PERIPHERAL IV DATA: Not applicable SIGNED BY: RT Wagner(R) July 28, 2021 11:34 AM Normal [facility] CBC panel Auto (Bld)on 07-28 Erythrocyte distribution width (RBC) [Ratio] 15.0 % Normal 11.5-15.0 [facility] Comment on above: Order Comment: Speci men Type: BLOOD SPECIMENOrdering Facility: [facility] Address: [address] [place] [address] Performed By: #### 5 8410-2 ####[facility] LABORATORYCLIA [id number] [address] [place] Hematocrit (Bld) [Volume fraction] 36.6 % Low 39.0-51.0 [facility] Comment on above: Order Comment: Speci men Type: BLOOD SPECIMENOrdering Facility: [facility] Address: [address] [place] [address] Performed By: #### 5 8410-2 ####[facility] LABORATORYCLIA [id number] [place] [address] [place] Hemoglobin (Bld) [Mass/Vol] 11.6 g/dL Low 13.0-17.0 [facility] Comment on above: Order Comment: Speci men Type: BLOOD SPECIMENOrdering Facility: [facility] Address: [address] [place] [address] Performed By: #### 5 8410-2 ####[facility] LABORATORYCLIA [id number] [address] MCH (RBC) [Entitic mass] 28.3 pg Normal 26.0-34.0 [facility] Comment on above: Order Comment: Speci men Type: BLOOD SPECIMENOrdering Facility: [facility] Address: [address] [place] [address] Performed By: #### 5 8410-2 ####[facility] LABORATORYCLIA [id number] [address] MCHC (RBC) [Mass/Vol] 31.7 g/dL Normal 30.5-36.0 [facility] Comment on above: Order Comment: Speci men Type: BLOOD SPECIMENOrdering Facility: [facility] Address: [address] [place] [address] Performed By: #### 5 8410-2 ####[facility] LABORATORYCLIA [id number] [address] MCV (RBC) [Entitic vol] 89.3 fL Normal 80.0-100.0 [facility] Comment on above: Order Comment: Speci men Type: BLOOD SPECIMENOrdering Facility: [facility] Address: [address] [place] [address] Performed By: #### 5 8410-2 ####[facility] LABORATORYCLIA [id number] [address] Nucleated RBC (Bld) [#/Vol] 10*3/uL Normal <0.01 [facility] Comment on above: Order Comment: Speci men Type: BLOOD SPECIMENOrdering Facility: [facility] Address: [address] [place] [address] Performed By: #### 5 8410-2 ####[facility] LABORATORYCLIA [id number] [address] [place] Platelet mean volume (Bld) [Entitic vol] 10.3 fL Normal 9.0-12.7 [facility] Comment on above: Order Comment: Speci men Type: BLOOD SPECIMENOrdering Facility: [facility] Address: [address] [place] [address] Performed By: #### 5 8410-2 ####[facility] LABORATORYCLIA [id number] [address] [place] Platelets (Bld) [#/Vol] 377 10*3/uL Normal 150-400 [facility] Comment on above: Order Comment: Speci men Type: BLOOD SPECIMENOrdering Facility: [facility] Address: [address] [place] [address] Performed By: #### 5 8410-2 ####[facility] LABORATORYCLIA [id number] [address] [place] [facility] RBC (Bld) [#/Vol] 4.10 10*6/uL Low 4.20-6.00 [facility] Comment on above: Order Comment: Speci men Type: BLOOD SPECIMENOrdering Facility: [facility] Address: [address] [place] [address] Performed By: #### 5 8410-2 ####[facility] LABORATORYCLIA [id number] [address] [place] WBC (Bld) [#/Vol] 16.69 10*3/uL High 3.70-11.00 [facility] Comment on above: Order Comment: Speci men Type: BLOOD SPECIMENOrdering Facility: [facility] Address: [address] [place] [address] Performed By: #### 5 8410-2 ####[facility] LABORATORYCLIA [id number] [address] OF [facility] CNDSon 07-28-2021 CNDS HNO ID: [id number] Author: Rosalie Dorantes DO Service: Critical Care Author Type: Resident Type: Discharge Summary Filed: 07/28/2021 6:03 PM Note Text: Attestation signed by Dayana Hill MD at 07/28/2021 6:51 PM Attending Note I evaluated the patient and personally participated in the white components. I agree with the resident's findings and plan as documented and have discussed the case and management of the patient's care with the resident. Signature: Dayana Hill MD Date: 07/28/2021 Time: 6:51 PM DISCHARGE SUMMARY PATIENT NAME: James Reyes ADMISSION DATE: 07/21/2021 DISCHARGE DATE: 07/28/2021 Attending Physician: Dayana Hill MD Code Status: Full Code Highest Readmission Risk Score: 48 The 30 day readmissions risk score is derived from an internally validated risk model which evaluates patient level characteristics, utilization history, medication orders and lab results up until the day of discharge. Patients with a score of 40 or above are considered highest risk for readmission. Specific patient level drivers will be listed at the bottom of the summary. The 30 day readmissions risk score is derived from an internally validated risk model which evaluates patient level characteristics, utilization history, medication orders and lab results up until the day of discharge. Patients with a score of 40 or above are considered highest risk for readmission. Specific patient level drivers will be listed at the bottom of the summary. PRINCIPAL PROBLEM: Respiratory failure (HCC) Operations During Hospitalization: None Procedures During Hospitalization: No procedures performed Hospital Course: Mr. James Reyes is a 65-year-old male with PMH of: - Type 2 Diabetes Mellitus - CAD s/p CABG - MINERVA and COPD - Tobacco Abuse [1 pack per day for ~47 years] - Obesity [BMI 41.44] ? Mr. Reyes initially presented to the [facility] ED from [facility] on 07/21/2021 for evaluation of chest pain, dyspnea and cough, after being found to be saturating ~80% on RA. Upon initial evaluation in the ED, the patient was found to be hypoxic to ~80% requiring the use of NC and then later NRB. He was otherwise hemodynamically stable. Patient was admitted to the ICU for Respiratory Failure secondary to COPD Exacerbation?and PNA. In the ICU the patient was treated with Zosyn for possible HAP and lasix for the plural effusion noted on chest x ray. He consistently had negative fluid balance each day on lasix. Echo showed normal LV systolic function. Respiratory status has improved and he is on 10L NC tolerating well. Endocrinology was consulted to manage his high insulin requirements, but has had stable blood sugars on the Lantus regimen ordered. He is stable for transfer to his facility. Principal Problem: Respiratory failure (HCC) POA: Yes Resolved Problems: * No resolved hospital problems. * Consulting Teams During Hospitalization: Endocrinology: Infectious Disease: Patient Condition @ Discharge: Stable Discharge Disposition: Residential Acute Care Residential Acute Care Diet: Low carb diet: 3-5 carbs/meal, <200 mg cholesterol, low saturated fat Activity: Resume pre-hospital activity ALLERGIES Allergen Reactions - Penicillins Unknown - Teramycin [Oxytetra* Unknown Discharge Medications: Current Discharge Medication List START taking these medications dextrose 15 g Take 15 g by mouth as needed. glucagon 1 mg Inject 1 mg intramuscularly as needed. dextrose 50% in water 12.5 g Inject 12.5 g intravenously as needed. albuterol (PROVENTIL) 2.5 mg Use 2.5 mg via nebulizer every 2 hours as needed for wheezing/shortness of breath. ipratropium-albuterol (DUONEB) 3 mL Inhale 3 mL as instructed every 4 hours while awake. calcium gluconate 4 g in NaCl 0.9% 250 mL 4 g Inject 4 g intravenously as needed (ionized calcium LESS than 1.05 mmol/L). meropenem (MERREM) 1 g Inject 1 g intravenously every 8 hours. Qty: 400 mL Refills: 0 heparin 7,500 Units Inject 7,500 Units subcutaneously every 8 hours. insulin glargine (LANTUS SOLOSTAR, BASAGLAR KWIKPEN) 60 Units Inject 60 Units subcutaneously daily at bedtime. Comments: Generic or brand: dispense product preferred by patient/insurance unless RAMIN flag is selected. !! insulin lispro (HumaLOG KWIKPEN) 30 Units Inject 30 Units subcutaneously w MEALS. !! insulin lispro (HUMALOG KWIKPEN) 100 unit/mL ADMINISTER CORRECTIONAL INSULIN REGARDLESS OF MEAL OR NUTRITION INTAKE Custom Scale. If Blood Glucose (mg/dL) is: Less than 110= 0 units, 111-150= 0 units, 151-200= 3 units, 201-250= 6 units, 251-300= 9 units, 301-350= 12 units, 351-400= 15 units, Greater than 400= 18 units, Notify provider if 2 consecutive blood glucose values in the previous 24 (more content not included)... Normal [facility] CONSULT PROGon 07-28-2021 CONSULT PROG HNO ID: [id number] Author: James Mai MD Service: Endocrinology Author Type: Physician Type: Consult Progress Note Filed: 07/28/2021 12:39 PM Note Text: ENDOCRINOLOGY CONSULT PROGRESS NOTE SERVICE DATE: 07/28/2021 SERVICE TIME: 12:34 PM Subjective Interval history of present illness Interval history: James without complaints to me this AM. No nausea, vomiting or anorexia reported. Steroid: on Prednisone 40 mg daily (given this AM, then appears to have been discontinued) Glucoses: Yesterday; Pre-breakfast/fastin mg/dL. Pre-lunch: 211 mg/dL. Pre-supper: 316 mg/dL, Bedtime: 377 mg/dL. Today AM basic metabolic panel glucose 275 mg/dL Pre-breakfast/fastin mg/dL. Pre-lunch 169 mg/dL. Current hospital insulin regimen: prior to changes Basal: Insulin glargine (Lantus) 60 units, dosed in AM and 60 units dosed in PM. Prandial: Insulin lispro (Humalog) 20 units with meals. Supplemental with meals: Insulin lispro (Humalog) scale based on 3 unit(s) insulin per 50 mg/dL of glucose above 150 mg/dL. Supplemental at bedtime: Insulin lispro (Humalog) scale based on 3 unit(s) insulin per 50 mg/dL of glucose above 150 mg/dL. Previous history: 65 year old male with Diabetes Mellitus type 2, with severe insulin resistance. His diabetes is complicated by left diabetic foot ulcer and neuropathy, [facility]iary resident, CAD status post CABG, MINERVA, chronic obstructive pulmonary disease. He presented to the hospital on 07/21/2021 with chief complaints of shortness of breath and chest pain. He was found to be hypoxic, febrile. Hospital course complicated by the development of acute kidney injury and uncontrolled blood sugar levels. Due to the increasing levels of oxygen requirements, he was admitted to the medical ICU for acute hypoxic respiratory failure secondary to right-sided pneumonia with lung collapse. He has been treated with broad-spectrum antibiotics and steroids. He was started on insulin drip due to severely uncontrolled blood glucose levels. He was transitioned off the insulin drip 07/26/2021. Endocrinology has been consulted for the management of insulin. ? ? Home DM meds: Insulin glargine (Lantus) 98 units daily Insulin lispro (Humalog) 18 units with meals Dulaglutide (Trulicity) 1.5 mg subq, once a week Previous use of metformin ? HbA1c: No data in [facility]. Review of systems: Constitutional: No new malaise. Gastrointestinal: no current nausea or vomiting. No current anorexia. Endocrine: See history of present illness above. Medications: Current Facility-Administered Medications Medication Dose Route Frequency - iv contrast (radiology procedure) INTRAVENOUS DIRECTED PRN - acetylcysteine 100 mg/mL (10 %) 200 mg (MUCOMYST) 2 mL INHALATION q 20 MIN PRN - atorvastatin 80 mg tab(s) (LIPITOR) 80 mg ORAL DAILY - aspirin, enteric coated 81 mg tab(s) 81 mg ORAL DAILY - potassium chloride ER 20-40 mEq tab(s) (K-DUR, KLOR-CON) 20-40 mEq ORAL/FEEDING TUBE PRN Or - potassium chloride iv piggyback 20 mEq/100 mL 20 mEq INTRAVENOUS PRN - magnesium sulfate 2 g in sterile water 50 ml 2 g INTRAVENOUS PRN - phosphorus 500 mg tab(s) (K PHOS NEUTRAL) 500 mg ORAL/FEEDING TUBE PRN(NO DISPENSE) - calcium gluconate 4 g in NaCl 0.9% 250 mL 4 g INTRAVENOUS PRN - sodium chloride 0.9 % (flush) 3-5 mL (BD POSIFLUSH) 3-5 mL INTRAVENOUS q 12 H - ipratropium-albuterol 3 mL nebulizer solution (DUONEB) 3 mL INHALATION q 4 H while awake - albuterol 2.5 mg /3 mL (0.083 %) 2.5 mg (PROVENTIL) 2.5 mg INHALATION q 2 H PRN - acetaminophen 650 mg tab(s) (TYLENOL) 650 mg ORAL q 4 H PRN - NaCl 0.9% iv flush bag 20 mL INTRAVENOUS PRN - heparin 7,500 Units injection 7,500 Units SUBCUTANEOUS q 8 H - tamsulosin 0.4 mg cap(s) (FLOMAX) 0.4 mg ORAL BID - pregabalin 100 mg cap(s) (LYRICA) 100 mg ORAL TID - finasteride 5 mg tab(s) (PROSCAR) 5 mg ORAL DAILY - famotidine 20 mg tab(s) (PEPCID) 20 mg ORAL AT BEDTIME - sodium chloride 0.9 % (flush) 2-10 mL (BD POSIFLUSH) 2-10 mL INTRAVENOUS DIRECTED PRN - sodium chloride 0.9 % (flush) 2-10 mL (BD POSIFLUSH) 2-10 mL INTRAVENOUS DIRECTED PRN And - perflutren lipid microspheres 1.1 mg/mL 1.3 mL injection (DEFINITY) 1.3 mL INTRAVENOUS DIRECTED PRN - furosemide 40 mg injection (LASIX) 40 mg INTRAVENOUS DAILY - senna-docusate 8.6-50 mg 2 tablet (SENNA-S) 2 tablet ORAL BID PRN - meropenem 1 g in NaCl 0.9% 100 mL Vial-Bag (MERREM) 1 g INTRAVENOUS q 8 H - dextrose 40 % 15 g 15 g ORAL PRN Or - glucagon 1 mg injection 1 mg INTRAMUSCULAR PRN Or - dextrose 50% in water 25 mL syringe 12.5 g INTRAVENOUS PRN - insulin lispro pen (rapid acting) (HumaLOG KWIKPEN) SUBCUTANEOUS w MEALS AND HS - insulin glargine 60 Units pen (long acting) (LANTUS SOLOSTAR, BASAGLAR KWIKPEN) 60 Units SUBCUTANEOUS AT BEDTIME - insulin glargine 60 Units pen (long acting) (LANTUS SOLOSTAR, BASAGLAR KWIKPEN) 60 Units (more content not included)... [facility] NURSING PROGon 07-28-2021 NURSING PROG HNO ID: [id number] Author: Wilmar Vigil RN Service: ? Author Type: Registered Nurse Type: Nursing Progress Note Filed: 07/28/2021 7:20 PM Note Text: Nursing Progress Note Patient Name: James Reyes Patient Location: [place] [address] 10-15 Daily Note: Nurse to nurse given to MARLEY Pichardo at [facility] [place]. Patient transport set up for 7pm. All questions answered. It was requested by Kylee that the chaudhari and IV's be left in place. Patient will be discharged with coude chaudhari, 20 left AC PIV, and 20 right AC PIV. Patient in stable condition. This note was completed by: Wilmar Vigil Normal [facility] PROCALCITONIN (LAB)on 2021 Procalcitonin [Mass/Vol] 0.09 ng/mL High <0.09 [facility] Comment on above: Order Comment: Crystal bustillo Type: BLOOD SPECIMENOrdering Facility: [facility] Address: [address] [place] [address] Result Comment: For a guided interpretation of test results, please visit the Change in Procalcitonin Calculator, [email or web address]. Performed By: #### 2 4362-6, PROCAL ####[facility] LABORATORYCLIA [id number] [place] [address] [place] Renal function 2000 panelon 07-28-2021 Albumin [Mass/Vol] 2.5 g/dL Low 3.9-4.9 [facility] Comment on above: Order Comment: Crystal bustillo Type: BLOOD SPECIMENOrdering Facility: [facility] Address: [address] [place] [address] Performed By: #### 2 4362-6, PROCAL ####[facility]ORATORYCLIA [id number] [place] [address] [place] Anion gap [Moles/Vol] 9 mmol/L Normal 9-18 [facility] Comment on above: Order Comment: Speci men Type: BLOOD SPECIMENOrdering Facility: [facility] Address: [address] [place] [address] Performed By: #### 2 4362-6, PROCAL ####[facility]ATORYCLIA [id number] [place] [address] [place] Calcium [Mass/Vol] 8.2 mg/dL Low 8.5-10.2 [facility] Comment on above: Order Comment: Speci men Type: BLOOD SPECIMENOrdering Facility: [facility] Address: [address] [place] [address] Performed By: #### 2 4362-6, PROCAL ####[facility] LABORATORYCLIA [id number] [address] [place] Chloride [Moles/Vol] 95 mmol/L Low 97-105 [facility] Comment on above: Order Comment: Speci men Type: BLOOD SPECIMENOrdering Facility: [facility] Address: [address] [place] [address] Performed By: #### 2 4362-6, PROCAL ####[facility]ATORYCLIA [id number] [place] [address] [place] CO2 [Moles/Vol] 30 mmol/L Normal 22-30 [facility] Comment on above: Order Comment: Speci men Type: BLOOD SPECIMENOrdering Facility: [facility] Address: [address] [place] [address] Performed By: #### 2 4362-6, PROCAL ####[facility]ATORYCLIA [id number] [place] [address] [place] Creatinine [Mass/Vol] 1.28 mg/dL High 0.73-1.22 [facility] Comment on above: Order Comment: Speci men Type: BLOOD SPECIMENOrdering Facility: [facility] Address: [address] [place] [address] Performed By: #### 2 4362-6, PROCAL ####[facility] COUNTYIA [id number] [address] [place] ESTIMATED GLOMERULAR FILTRATION RATE 62 mL/min/1.73m??? Normal >=60 [facility] Comment on above: Order Comment: Crystal keny Type: BLOOD SPECIMENOrdering Facility: [facility] Address: [address] [place] [address] Result Comment: Anu mated Glomerular Filtration Rate (eGFR) is calculated using the 2020 CKD-EPI creatinine equation. This equation utilizes serum creatinine, sex, and age as parameters. The creatinine assay has traceable calibration to isotope dilution-mass spectrometry. Refer to KDIGO guidelines for clinical interpretation. In patients with unstable renal function, e.g. those with acute kidney injury, the eGFR may not accurately reflect actual GFR. Performed By: #### 2 4362-6, PROCAL ####[facility] LABORATORYIA [id number] [place] [address] [place] Glucose [Mass/Vol] 275 mg/dL High 74-99 [facility] Comment on above: Order Comment: Crystal bustillo Type: BLOOD SPECIMENOrdering Facility: [facility] Address: [address] [place] [address] Result Comment: The [place] Diabetes Association (ADA) provides guidance for cutoff values for fasting glucose and random glucose. The ADA defines fasting as no caloric intake for at least 8 hours. Fasting plasma glucose results between 100 to 125 mg/dL indicate increased risk for diabetes (prediabetes). Fasting plasma glucose results greater than or equal to 126 mg/dL meet the criteria for diagnosis of diabetes. In the absence of unequivocal hyperglycemia, results should be confirmed by repeat testing. In a patient with classic symptoms of hyperglycemia or hyperglycemic crisis, random plasma glucose results greater than or equal to 200 mg/dL meet the criteria for diagnosis of diabetes. Reference: Standards of Medical Care in Diabetes 2016, [place] [employer] Association. Diabetes Care. 2016.39(Suppl 1). Performed By: #### 2 4362-6, PROCAL ####[facility]ATORYCLIA [id number] [place] [address] [place] Phosphate [Mass/Vol] 3.6 mg/dL Normal 2.7-4.8 [facility] Comment on above: Order Comment: Speci men Type: BLOOD SPECIMENOrdering Facility: [facility] Address: [address] [place] [address] Performed By: #### 2 4362-6, PROCAL ####[facility] LABORATORYCLIA [id number] [place] [address] [place] Potassium [Moles/Vol] 4.4 mmol/L Normal 3.7-5.1 [facility] Comment on above: Order Comment: Speci men Type: BLOOD SPECIMENOrdering Facility: [facility] Address: [address] [place] [address] Performed By: #### 2 4362-6, PROCAL ####[facility] LABORATORYCLIA [id number] [address] STATES OF [facility] Sodium [Moles/Vol] 134 mmol/L Low 136-144 [facility] Comment on above: Order Comment: Speci men Type: BLOOD SPECIMENOrdering Facility: [facility] Address: [address] [place] [address] Performed By: #### 2 4362-6, PROCAL ####[facility] LABORATORYCLIA [id number] [place] [address] [place] Urea nitrogen [Mass/Vol] 48 mg/dL High 9-24 [facility] Comment on above: Order Comment: Speci men Type: BLOOD SPECIMENOrdering Facility: [facility] Address: [address] [place] [address] Performed By: #### 2 4362-6, PROCAL ####[facility] LABORATORYCLIA [id number] [place] [address] [place] XR CHEST 1V FRONTALon 2021 XR CHEST 1V FRONTAL * * *Final Report* * * DATE OF EXAM: Apr 13 2022 11:43AM AKX [id number] - XR CHEST 1V FRONTAL / PROCEDURE REASON: Acute respiratory illness * * * * Physician Interpretation * * * * EXAMINATION: CHEST RADIOGRAPH (SINGLE VIEW AP OR PA) CLINICAL HISTORY: Acute respiratory illness MQ: XC1_5 Comparison: 07/24/2021 RESULT: Lines, tubes, and devices: Overlying magnetic tape typewriter operator leads. Lungs and pleura: Small to moderate right-sided pleural effusion that has increased since prior exam. Small lung volumes. Probable atelectasis at right lung base. Cardiomediastinal silhouette: Cardiomegaly. Widening of the superior mediastinum. Stable. Other: None. IMPRESSION: Worsening right-sided pleural effusion and atelectasis and or consolidation at right lung base. Small bilateral lung volumes. Probable atelectasis left base. Widening of superior mediastinum similar to prior exam. Appears to be due to tortuous brachiocephalic vessels and increased fat within the mediastinum. Assistant Mechanic: DUYEN Transcribe Date/Time: Jul 28 2021 1:08P Dictated by : CHELLE CHILD MD This examination was interpreted and the report reviewed and electronically signed by: CHELLE CHILD MD on Jul 28 2021 1:10PM EST [id number] Normal [facility] CBC panel Auto (Bld)on 07-27 Erythrocyte distribution width (RBC) [Ratio] 15.0 % Normal 11.5-15.0 [facility] Comment on above: Order Comment: Speci keny Type: BLOOD SPECIMENOrdering Facility: [facility] Address: [address] [place] [address] Performed By: #### 5 8410-2 ####[facility] LABORATORYCLIA [id number] [address] OF [facility] Hematocrit (Bld) [Volume fraction] 37.4 % Low 39.0-51.0 [facility] Comment on above: Order Comment: Crystal bustillo Type: BLOOD SPECIMENOrdering Facility: [facility] Address: [address] [place] [address] Performed By: #### 5 8410-2 ####[facility]ORATORYCLIA [id number] [address] Hemoglobin (Bld) [Mass/Vol] 11.9 g/dL Low 13.0-17.0 [facility] Comment on above: Order Comment: Speci men Type: BLOOD SPECIMENOrdering Facility: [facility] Address: [address] [place] [address] Performed By: #### 5 8410-2 ####[facility] LABORATORYCLIA [id number] [address] MCH (RBC) [Entitic mass] 27.9 pg Normal 26.0-34.0 [facility] Comment on above: Order Comment: Speci men Type: BLOOD SPECIMENOrdering Facility: [facility] Address: [address] [place] [address] Performed By: #### 5 8410-2 ####[facility] LABORATORYCLIA [id number] [address] MCHC (RBC) [Mass/Vol] 31.8 g/dL Normal 30.5-36.0 [facility] Comment on above: Order Comment: Speci men Type: BLOOD SPECIMENOrdering Facility: [facility] Address: [address] [place] [address] Performed By: #### 5 8410-2 ####[facility]ORATORYCLIA [id number] [address] MCV (RBC) [Entitic vol] 87.6 fL Normal 80.0-100.0 [facility] Comment on above: Order Comment: Speci men Type: BLOOD SPECIMENOrdering Facility: [facility] Address: [address] [place] [address] Performed By: #### 5 8410-2 ####[facility]ORATORYCLIA [id number] [address] Nucleated RBC (Bld) [#/Vol] 10*3/uL Normal <0.01 [facility] Comment on above: Order Comment: Speci men Type: BLOOD SPECIMENOrdering Facility: [facility] Address: [address] Performed By: #### 5 8410-2 ####[facility]ORATORYCLIA [id number] [address] Platelet mean volume (Bld) [Entitic vol] 10.0 fL Normal 9.0-12.7 [facility] Comment on above: Order Comment: Speci men Type: BLOOD SPECIMENOrdering Facility: [facility] Address: [address] [place] [address] Performed By: #### 5 8410-2 ####[facility]ORATORYCLIA [id number] [address] [place] Platelets (Bld) [#/Vol] 380 10*3/uL Normal 150-400 [facility] Comment on above: Order Comment: Speci men Type: BLOOD SPECIMENOrdering Facility: [facility] Address: [address] [place] [address] Performed By: #### 5 8410-2 ####[facility]ORATORYCLIA [id number] [address] [place] RBC (Bld) [#/Vol] 4.27 10*6/uL Normal 4.20-6.00 [facility] Comment on above: Order Comment: Speci men Type: BLOOD SPECIMENOrdering Facility: [facility] Address: [address] [place], [place] [address] Performed By: #### 5 8410-2 ####[facility]ORATORYCLIA [id number] [address] [place] WBC (Bld) [#/Vol] 10.89 10*3/uL Normal 3.70-11.00 [facility] Comment on above: Order Comment: Speci men Type: BLOOD SPECIMENOrdering Facility: [facility] Address: [address] [place] [address] Performed By: #### 5 8410-2 ####[facility]ORATORYCLIA [id number] [address] OF [facility] CONSULTon 04-12-2022 CONSULT HNO ID: [id number] Author: James Mai MD Service: Critical Care Author Type: Physician Type: Consults Filed: 07/27/2021 10:51 AM Note Text: INITIAL CONSULT ENDOCRINOLOGY SERVICE DATE: 07/27/2021 SERVICE TIME: 9:31 AM Requesting Provider: Dayana Hill MD Opinion/Advice Regarding: Management of Insulin in Type 2 Diabetes Mellitus Service: Endocrinology Consult Service Subjective HPI: Mr. James Reyes is a 65 year old male with type 2 diabetes mellitus complicated by left diabetic foot ulcer and neuropathy, [place], CAD status post CABG, MINERVA, COPD presented to the hospital on 07/21/2021 with chief complaints of shortness of breath and chest pain. He was found to be hypoxic, febrile. Hospital course complicated by the development of acute kidney injury and uncontrolled blood sugar levels. Due to the increasing levels of oxygen requirements, he was admitted to the medical ICU for acute hypoxic respiratory failure secondary to right-sided pneumonia with lung collapse. He has been treated with broad-spectrum antibiotics and steroids. He was started on insulin drip due to severely uncontrolled blood glucose levels with an average of 5 to 6 units/h on the drip. He was transitioned off the insulin drip yesterday with basal bolus regimen. Endocrinology has been consulted for the management of insulin. On my evaluation, the patient was resting comfortably on the bed in no acute distress. He tells me that he has been a type II diabetic for years and has been on high doses of insulin at home for the management of diabetes. He is unaware of his last hemoglobin A1c and had seen an sander hand couple of years ago and has not followed up ever since. He states that he has a good appetite and is able to eat, denies nausea/vomiting. He does complain of some shortness of breath, orthopnea but denies PND, fever, chills, chest pain, cough, sputum or any other systemic symptoms as such as of now. We do not have any hemoglobin A1c data in the chart, the last one was in 2018 which showed 7.1. At home, he is on 98 units of glargine at bedtime, 18 units of lispro with meals along with sliding scale, Trulicity 1.5 mg. He was apparently on Metformin previously, but does not take it anymore. Attending documentation: In addition to the above notes by my medical office professional instructor physician, and/or my medical student, please note the followin65 year old male with Diabetes Mellitus type 2, with severe insulin resistance. Steroid: on Prednisone 40 mg daily Home DM meds: Insulin glargine (Lantus) 98 units daily Insulin lispro (Humalog) 18 units with meals Dulaglutide (Trulicity) 1.5 mg subq, once a week Previous use of metformin HbA1c: No data in Epic. PAST MEDICAL HISTORY Diagnosis Date - Foot infection - Hypercholesterolemia - Neuropathy - Type II diabetes mellitus (HCC) PAST SURGICAL HISTORY Procedure Laterality Date - PAST SURGICAL HISTORY OF Cholecystectomy - PAST SURGICAL HISTORY OF Thyroid Tumor Removal - PAST SURGICAL HISTORY OF Left Foot FAMILY HISTORY Problem Relation Age of Onset - other (DM II) Father Social History Tobacco Use - Smoking status: Current Every Day Smoker Packs/day: 1.00 Types: Cigarettes - Smokeless tobacco: Never Used Substance Use Topics - Alcohol use: No - Drug use: No MEDICATIONS: acetaminophen (TYLENOL) 325 mg tablet, Take 650 mg by mouth every 6 hours as needed., Disp: , Rfl: aspirin 81 mg chewable tablet, Take 81 mg by mouth once daily., Disp: , Rfl: docusate sodium (COLACE) 100 mg capsule, Take 100 mg by mouth twice daily., Disp: , Rfl: ezetimibe (ZETIA) 10 mg tablet, Take 10 mg by mouth once daily., Disp: , Rfl: fenofibrate nanocrystallized (TRICOR) 145 mg tablet, Take 145 mg by mouth once daily., Disp: , Rfl: ferrous sulfate 325 mg (65 mg iron) tablet, Take 325 mg by mouth daily with breakfast., Disp: , Rfl: tamsulosin (FLOMAX) 0.4 mg, Take 0.4 mg by mouth twice daily., Disp: , Rfl: folic acid 1 mg tablet, Take 1 mg by mouth once daily., Disp: , Rfl: guaiFENesin (MUCINEX) 600 mg 12 hr tablet, Take 1,200 mg by mouth twice daily., Disp: , Rfl: insulin glargine,hum.rec.anlog (LANTUS U-100 INSULIN SUBCUTANEOUS), Inject 98 Units subcutaneously daily at bedtime., Disp: , Rfl: atorvastatin (LIPITOR) 80 mg tablet, Take 80 mg by mouth daily at bedtime., Disp: , Rfl: melatonin 1 mg tablet, Take 2 mg by mouth daily at bedtime., Disp: , Rfl: metoprolol succinate ER (TOPROL XL) 100 mg, Take 100 mg by mouth once daily., Disp: , Rfl: insulin aspart U-100 (NOVOLOG) 100 unit/mL, Inject 18 Units subcutaneously three times daily before meals., Disp: , Rfl: oxyCODONE-acetaminophen (PERCOCET) 5-325 mg tablet, Take by mouth every 6 hours as needed for pain., Disp: , Rfl: famotidine (PEPCID) 20 mg tablet, Take 20 mg by mouth daily at bedtime., Disp: , Rfl: pregabalin (LYRICA) 10 (more content not included)... Normal [facility] Renal function 2000 panelon 07-27-2021 Albumin [Mass/Vol] 2.6 g/dL Low 3.9-4.9 [facility] Comment on above: Order Comment: Speci men Type: BLOOD SPECIMENOrdering Facility: [facility] Address: [address] [place] [address] Performed By: #### 2 4362-6 ####[facility] LABORATORYCLIA [id number] [address] STATES [facility] Anion gap [Moles/Vol] 12 mmol/L Normal 9-18 [facility] Comment on above: Order Comment: Speci men Type: BLOOD SPECIMENOrdering Facility: [facility] Address: [address] [place] [address] Performed By: #### 2 4362-6 ####[facility] LABORATORYCLIA [id number] [place] [address] [place] [facility] Calcium [Mass/Vol] 8.7 mg/dL Normal 8.5-10.2 [facility] Comment on above: Order Comment: Speci men Type: BLOOD SPECIMENOrdering Facility: [facility] Address: [address] [place] [address] Performed By: #### 2 4362-6 ####[facility]ORATORYCLIA [id number] [address] [place] Chloride [Moles/Vol] 94 mmol/L Low 97-105 [facility] Comment on above: Order Comment: Speci men Type: BLOOD SPECIMENOrdering Facility: [facility] Address: [address] [place] [address] Performed By: #### 2 4362-6 ####[facility]ORATORYCLIA [id number] [address] OF [facility] CO2 [Moles/Vol] 28 mmol/L Normal 22-30 [facility] Comment on above: Order Comment: Speci men Type: BLOOD SPECIMENOrdering Facility: [facility] Address: [address] [place] [address] Performed By: #### 2 4362-6 ####[facility] CITYCLIA [id number] [address] OF [facility] Creatinine [Mass/Vol] 1.31 mg/dL High 0.73-1.22 [facility] Comment on above: Order Comment: Speci men Type: BLOOD SPECIMENOrdering Facility: [facility] Address: [address] [place] [address] Performed By: #### 2 4362-6 ####[facility] CITYCLIA [id number] [address] ESTIMATED GLOMERULAR FILTRATION RATE 61 mL/min/1.73m??? Normal >=60 [facility] Comment on above: Order Comment: Speci men Type: BLOOD SPECIMENOrdering Facility: [facility] Address: [address] [place] [address] Result Comment: Anu mated Glomerular Filtration Rate (eGFR) is calculated using the 2020 CKD-EPI creatinine equation. This equation utilizes serum creatinine, sex, and age as parameters. The creatinine assay has traceable calibration to isotope dilution-mass spectrometry. Refer to KDIGO guidelines for clinical interpretation. In patients with unstable renal function, e.g. those with acute kidney injury, the eGFR may not accurately reflect actual GFR. Performed By: #### 2 4362-6 ####[facility] LABORATORYCLIA [id number] [place] [address] [place] Glucose [Mass/Vol] 161 mg/dL High 74-99 [facility] Comment on above: Order Comment: Crystal bustillo Type: BLOOD SPECIMENOrdering Facility: [facility] Address: [address] [place] [address] Result Comment: The [place] Diabetes Association (ADA) provides guidance for cutoff values for fasting glucose and random glucose. The ADA defines fasting as no caloric intake for at least 8 hours. Fasting plasma glucose results between 100 to 125 mg/dL indicate increased risk for diabetes (prediabetes). Fasting plasma glucose results greater than or equal to 126 mg/dL meet the criteria for diagnosis of diabetes. In the absence of unequivocal hyperglycemia, results should be confirmed by repeat testing. In a patient with classic symptoms of hyperglycemia or hyperglycemic crisis, random plasma glucose results greater than or equal to 200 mg/dL meet the criteria for diagnosis of diabetes. Reference: Standards of Medical Care in Diabetes 2016, [place] [employer] Association. Diabetes Care. 2016.39(Suppl 1). Performed By: #### 2 4362-6 ####[facility] LABORATORYCLIA [id number] [place] [address] [place] Phosphate [Mass/Vol] 2.9 mg/dL Normal 2.7-4.8 [facility] Comment on above: Order Comment: Crystal bustillo Type: BLOOD SPECIMENOrdering Facility: [facility] Address: [address] [place] [address] Performed By: #### 2 4362-6 ####[facility] LABORATORYCLIA [id number] [place] [address] [place] Potassium [Moles/Vol] 4.2 mmol/L Normal 3.7-5.1 [facility] Comment on above: Order Comment: Crystal bustillo Type: BLOOD SPECIMENOrdering Facility: [facility] Address: [address] [place] [address] Performed By: #### 2 4362-6 ####[facility] LABORATORYCLIA [id number] [place] [address] [place] Sodium [Moles/Vol] 134 mmol/L Low 136-144 [facility] Comment on above: Order Comment: Speci men Type: BLOOD SPECIMENOrdering Facility: [facility] Address: [address] [place] [address] Performed By: #### 2 4362-6 ####[facility]ORATORYCLIA [id number] [address] Urea nitrogen [Mass/Vol] 50 mg/dL High 9-24 [facility] Comment on above: Order Comment: Speci men Type: BLOOD SPECIMENOrdering Facility: [facility] Address: [address] [place] [address] Performed By: #### 2 4362-6 ####[facility] LABORATORYCLIA [id number] [address] [place] THERAPY NTon 07-27-2021 THERAPY NT HNO ID: [id number] Author: Mirian Grier, PT Service: Physical Therapy Author Type: Physical Therapist Type: Therapy (PT/OT/Speech/Resp) Filed: 07/27/2021 4:05 PM Note Text: Physical Therapy SERVICE DATE: 07/27/2021 SERVICE TIME: 1341 to 1401 ROOM: [place] [address] Recommended Discharge Disposition: Home PT (at Assisted Living) Recommended Discharge Disposition Comments: Pt was independent for functional mobility ambulating with a rollator at assisted living that he currently resides at. Pt is below baseline d/t the assists levels during transfer and decreased endurance today. Pt still demonstrates reduced functional mobility and balance and would be appropriate to return to assisted living with PT services d/t some impairment observed during today's evalaution. Hopefull to progress toward PLOF. PT 6 Clicks Score: 19 Precautions/Activity Restrictions: Fall Risk Vital Signs Pre Assessment: SpO2, O2 Equipment Pre SpO2: 85 Pre O2 Equipment: Nasal Cannula Pre Oxygen Requirement: 10 L Intra Assessment 1: SpO2 Intra 1, Oxygen Equipment Intra 1 Intra SpO2 1: 86 Intra O2 Equipment 1: Nasal Cannula Intra Oxygen Requirement 1: 11 L Post Assessment: SpO2 Post, Oxygen Equipment Post Post SpO2: 91 Post O2 Equipment: Nasal Cannula Post Oxygen Requirement: 10 L Current Hospital Course: Pt presents to the ED d/t hypoxia, low O2, and coughing. Pt presents with acute respiratory failure d/t COPD, pneumonmia, and a collapsed lung. Reason for Hospital Admission: hypoxia, low O2 , coughing pain Relevant Past Medical History: Type II DM, CAD s/p CABG, OCA and COPD, Response to Therapy Interventions: Good participation in activities, Low activity tolerance Continue skilled needs due to: Safety concerns, Functional mobility/skill impairments Physical Therapy Problem List: Safety Deficits;Impaired Self Care;Decreased Activity Tolerance;Decreased Strength;Functional Mobility Impairment;Balance Impaired Treatment Interventions: Education;Strengthening ;Functional Mobility Training;Balance Training;Neuromuscular Re-education Plan for next visit: Bed mobility, Chair transfer training, Fall prevention, Gait training, Pre-gait activities, Sit to Stand Transfers, Sitting balance, Standing Balance, Standing Tolerance Home Environment Patient Lives With: Facility Care Assistance Available: 24 Hour Laundry: Done by staff Equipment Owned: Rollator Prior Functional Level: Within Functional Limits;Required Assistance Assistance Required With: Cleaning;Laundry;Meals; Medication Management Prior Functional Level Comments: Pt was able to ambulate independently with rollator while required assistance from nursing staff for IADLs Patient Report: Pt was agreeable to therapy Mobility performed during session in bold, other mobility completed during prior session and may no longer be correct or appropriate to complete. CURRENT FUNCTIONAL STATUS: Most recent performance Current Functional Mobility Assist Level Additional Information Rolling Supine to Sit Stand By Assistance Sit to Supine Scooting Sit to Stand Minimal Assistance Instructed pt to push through UEs in order to get to standing at wheeled walker. Instructed pt for upright posture and to maintain deep breathing for O2 management. Stand to Sit Contact Guard Assistance Instructed pt to reach back with UEs in order to assist in eccentric control in sitting. Bed to Chair Contact Guard Assistance Bed To Chair Transfer Type: Stepping Bed To Chair Transfer Equipment: Wheeled Walker Instructed pt to take steps towards the chair turn with wheeled walker towards chair. Toilet/Commode Gait Contact Guard Assistance Gait Device: Wheeled Walker Gait Distance (feet): 4 ft Stairs Curb Step Car Transfer Blank chand indicate activity not attempted General Deviations/Observations : Flexed trunk posture;Katarina decreased;Step length decreased Range of Motion: WFL Strength: WFL Balance: Static Sitting;Dynamic Standing Static Sitting Balance: Good Patient able to maintain balance without handhold support, limited postural sway Dynamic Standing Balance: Fair Patient accepts minimal challenge, able to maintain balance while turning head/trunk Activity Tolerance: Sitting Activity;Standing Activity Sitting Activity: sitting at edge of bed Sitting Activity Tolerance (in minutes): 3 Standing Activity: bed to chair transfer with wheeled walker Standing Activity Tolerance (in minutes): 2 JH-HLM: 5: Standing (1 or more minutes) Learning/Educational Needs: Disease Process;Equipment;Plan of Care;PT In-Hospital Exercise Program;Safety;Precauti ons;Respiratory Function Goals for Plan of Care: Patient /Caregiver Goals: Go Home Transfer supine to/from sit with: Independent Transfer sit to/from stand with: Stand By Assistance Ambulate with: Stand By Assistance Distance: 15 ft Device: Wheeled Walker Transfer: bed to chair tra (more content not included)... Normal [facility] Bacteria Spec Resp Culton Bacteria identified Respiratory culture Nom (Unsp spec) ORGANISM ID: 1 Rare Yeast, not Cryptococcus neoformans GRAM STAIN: Rare Gram positive cocci in pairs Rare Yeast Rare Polymorphonuclear leukocytes Few Epithelial cells Abnormal [facility] Comment on above: Performed By: #### 3 2355-0 #### [facility] CLIA [id number] [address] CBC panel Auto (Bld)on 07-26 Erythrocyte distribution width (RBC) [Ratio] 15.0 % Normal 11.5-15.0 [facility] Comment on above: Order Comment: Speci men Type: BLOOD SPECIMENOrdering Facility: [facility] Address: [address] [place] [address] Performed By: #### 9 4500-6 #### [facility] CLIA [id number] [address] [place] [address] STATES OF [facility] Hematocrit (Bld) [Volume fraction] 35.2 % Low 39.0-51.0 [facility] Comment on above: Order Comment: Speci men Type: BLOOD SPECIMENOrdering Facility: [facility] Address: [address] [place] [address] Performed By: #### 9 4500-6 #### [facility] CLIA [id number] [address] [place] [address] Hemoglobin (Bld) [Mass/Vol] 11.1 g/dL Low 13.0-17.0 [facility] Comment on above: Order Comment: Speci men Type: BLOOD SPECIMENOrdering Facility: [facility] Address: [address] [place] [address] Performed By: #### 9 4500-6 #### [facility] CLIA [id number] [address] MCH (RBC) [Entitic mass] 27.9 pg Normal 26.0-34.0 [facility] Comment on above: Order Comment: Speci men Type: BLOOD SPECIMENOrdering Facility: [facility] Address: [address] [place] [address] Performed By: #### 9 4500-6 #### [facility] CLIA [id number] [address] MCHC (RBC) [Mass/Vol] 31.5 g/dL Normal 30.5-36.0 [facility] Comment on above: Order Comment: Speci men Type: BLOOD SPECIMENOrdering Facility: [facility] Address: [address] [place] [address] Performed By: #### 9 4500-6 #### [facility] CLIA [id number] [address] MCV (RBC) [Entitic vol] 88.4 fL Normal 80.0-100.0 [facility] Comment on above: Order Comment: Speci men Type: BLOOD SPECIMENOrdering Facility: [facility] Address: [address] [place] [address] Performed By: #### 9 4500-6 #### [facility] CLIA [id number] [address] Nucleated RBC (Bld) [#/Vol] 10*3/uL Normal <0.01 [facility] Comment on above: Order Comment: Speci men Type: BLOOD SPECIMENOrdering Facility: [facility] Address: [address] [place] [address] Performed By: #### 9 4500-6 #### [facility] CLIA [id number] [address] [place] Platelet mean volume (Bld) [Entitic vol] 10.1 fL Normal 9.0-12.7 [facility] Comment on above: Order Comment: Speci men Type: BLOOD SPECIMENOrdering Facility: [facility] Address: [address] [place] [address] Performed By: #### 9 4500-6 #### [facility] CLIA [id number] 1 [place] [address] [place] Platelets (Bld) [#/Vol] 379 10*3/uL Normal 150-400 [facility] Comment on above: Order Comment: Speci men Type: BLOOD SPECIMENOrdering Facility: [facility] Address: [address] [place] [address] Performed By: #### 9 4500-6 #### [facility] CLIA [id number] [address] [place] RBC (Bld) [#/Vol] 3.98 10*6/uL Low 4.20-6.00 [facility] Comment on above: Order Comment: Speci men Type: BLOOD SPECIMENOrdering Facility: [facility] Address: [address] [place] [address] Performed By: #### 9 4500-6 #### [facility] CLIA [id number] 1 [place] [address] [place] WBC (Bld) [#/Vol] 9.59 10*3/uL Normal 3.70-11.00 [facility] Comment on above: Order Comment: Speci men Type: BLOOD SPECIMENOrdering Facility: [facility] Address: [address] [place] [address] Performed By: #### 9 4500-6 #### [facility] CLIA [id number] [address] [place] NUTRITIONon 07-26-2021 NUTRITION HNO ID: [id number] Author: Federica Loving RD Service: Nutrition Therapy Author Type: Registered Dietitian Type: Nutrition Filed: 07/26/2021 2:39 PM Note Text: INITIAL ASSESSMENT SERVICE DATE: 07/26/2021 SERVICE TIME: 1134 AM Nutrition Assessment: Recommended Malnutrition Diagnosis: Mild Protein-Calorie Malnutrition In the context of: Acute Illness or Injury Based on: Insufficient Energy Intake Nutrition Diagnosis: Problem: Suboptimal oral intake Related to: Acute illness As evidenced by: Intake records;Medical condition Estimated kilocalorie needs: Calorie Calculation Method: 25-30 kcals/kg Estimated protein needs (grams): 97-121 Grams protein determined by: 1.2 - 1.5 g/kg;[place] body weight Care Plan: Change diet to CHO controlled Monitor and Evaluation: Meet greater than 75% of estimated needs;Monitor fluid/electrolyte balance;Monitor bowel function;Monitor labs, I/Os, vital signs, weight Discharge Recommendations: Diet Diet: CHO controlled ------ HPI: 65 yo male, LOS 5 days, 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 Meds and labs reviewed, noted edema with -I/O, wt 141.3 kg (admit wt 138.6 kg), and GI with obese abdomen and hypoactive bowel sounds. ACTIVE PROBLEM LIST Primary Osteoarthritis of Right Foot Copd (Chronic Obstructive Pulmonary Disease) (Hcc) Hyperlipidemia Hypertensive Heart Disease Morbid Obesity (Hcc) Minerva (Obstructive Sleep Apnea) Type 2 Diabetes Mellitus (Hcc) Ibs (Irritable Bowel Syndrome) Colitis Cataract, Nuclear Sclerotic, Both Eyes Nonexudative Age-Related Macular Degeneration, Bilateral, 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 Respiratory Failure ([facility]) Intake History: Nutrition Intake Prior to Admission: Greater than 75% estimated energy needs greater than or equal to 3 months Current Intake: 0-25% estimated energy needs Over: 5 days Diet Orders (From admission, onward) Start Ordered 07/22/21 1200 DIET NPO START NOW Question: NPO Restrictions Answer: EXCEPT SIPS OF CLEARS 07/22/21 1151 Anthropometrics: Height: 182.9 cm (6') Weight: (!) 141.3 kg (311 lb 8.2 oz) Dosing Weight: 80.7 kg (178 lb) Usual Weight: 90.7 kg (200 lb) Limited weight history in [facility] Usual Weight Obtained From: Chart Review Body mass index is 42.25 kg/m?. Morbidly Obese Weight change percentage over time: Weight gain over the past 5 years Last Wt 07/25/21 : (!) 141.3 kg (311 lb 8.2 oz) 12/26/16 : 90.7 kg (200 lb) Physical Exam: Subcutaneous fat loss: No fat loss Muscle loss: No muscle loss Potential micronutrient deficiency: Teeth;Nails;Skin Edema/Ascites: Lower extremities;Generalized Lower Extremity: Non-pitting GI Symptoms: None Functional Status: No Change Potential Signs of Inflammation: Chronic condition;Critically ill;Hypoalbuminemia;Hyp erglycemia;Imaging studies DM, hypercholesterolemia MNT Billing: $ Initial Assessment: 1-15 minutes SIGNATURE: Federica Loving RD PATIENT NAME: James Reyes DATE: July 26, 2021 TIME: 8:46 AM Normal [facility] Renal function 2000 panelon 07-26-2021 Albumin [Mass/Vol] 2.8 g/dL Low 3.9-4.9 [facility] Comment on above: Order Comment: Crystal bustillo Type: BLOOD SPECIMENOrdering Facility: [facility] Address: [address] [place] [id number] Performed By: #### 2 4362-6 ####[facility] [id number] [place] [address] [place] Anion gap [Moles/Vol] 9 mmol/L Normal 9-18 [facility] Comment on above: Order Comment: Crystal bustillo Type: BLOOD SPECIMENOrdering Facility: [facility] Address: [address] [address] Performed By: #### 2 4362-6 ####[facility]IA [id number] [place] [address] [place] Calcium [Mass/Vol] 8.9 mg/dL Normal 8.5-10.2 [facility] Comment on above: Order Comment: Speci men Type: BLOOD SPECIMENOrdering Facility: [facility] Address: [address] [place] [address] Performed By: #### 2 4362-6 ####[facility]ORY[facility]IA [id number] [place] [address] [place] Chloride [Moles/Vol] 96 mmol/L Low 97-105 [facility] Comment on above: Order Comment: Speci men Type: BLOOD SPECIMENOrdering Facility: [facility] Address: [address] [place] [address] Performed By: #### 2 4362-6 ####[facility]ORYCLIA [id number] [place] [address] [place] CO2 [Moles/Vol] 31 mmol/L High 22-30 [facility] Comment on above: Order Comment: Speci men Type: BLOOD SPECIMENOrdering Facility: [facility] Address: [address] [place] [address] Performed By: #### 2 4362-6 ####[facility]ORYCLIA [id number] [place] [address] [place] Creatinine [Mass/Vol] 1.31 mg/dL High 0.73-1.22 [facility] Comment on above: Order Comment: Speci men Type: BLOOD SPECIMENOrdering Facility: [facility] Address: [address] [place] [address] Performed By: #### 2 4362-6 ####[facility]ORYCLIA [id number] [address] [place] ESTIMATED GLOMERULAR FILTRATION RATE 61 mL/min/1.73m??? Normal >=60 [facility] Comment on above: Order Comment: Crystal bustillo Type: BLOOD SPECIMENOrdering Facility: [facility] Address: [address] Result Comment: Anu mated Glomerular Filtration Rate (eGFR) is calculated using the 2020 CKD-EPI creatinine equation. This equation utilizes serum creatinine, sex, and age as parameters. The creatinine assay has traceable calibration to isotope dilution-mass spectrometry. Refer to KDIGO guidelines for clinical interpretation. In patients with unstable renal function, e.g. those with acute kidney injury, the eGFR may not accurately reflect actual GFR. Performed By: #### 2 4362-6 ####[facility]ORYCLIA [id number] [place] [address] [place] Glucose [Mass/Vol] 143 mg/dL High 74-99 [facility] Comment on above: Order Comment: Crystal bustillo Type: BLOOD SPECIMENOrdering Facility: [facility] Address: [address] [place] [address] Result Comment: The [place] Diabetes Association (ADA) provides guidance for cutoff values for fasting glucose and random glucose. The ADA defines fasting as no caloric intake for at least 8 hours. Fasting plasma glucose results between 100 to 125 mg/dL indicate increased risk for diabetes (prediabetes). Fasting plasma glucose results greater than or equal to 126 mg/dL meet the criteria for diagnosis of diabetes. In the absence of unequivocal hyperglycemia, results should be confirmed by repeat testing. In a patient with classic symptoms of hyperglycemia or hyperglycemic crisis, random plasma glucose results greater than or equal to 200 mg/dL meet the criteria for diagnosis of diabetes. Reference: Standards of Medical Care in Diabetes 2016, [place] Diabetes Association. Diabetes Care. 2016.39(Suppl 1). Performed By: #### 2 4362-6 ####[facility]ORYCLIA [id number] [place] [address] [place] Phosphate [Mass/Vol] 2.7 mg/dL Normal 2.7-4.8 [facility] Comment on above: Order Comment: Crystal bustillo Type: BLOOD SPECIMENOrdering Facility: [facility] Address: [address] Performed By: #### 2 4362-6 ####[facility]ORYCLIA [id number] [address] [place] Potassium [Moles/Vol] 4.4 mmol/L Normal 3.7-5.1 [facility] Comment on above: Order Comment: Speci men Type: BLOOD SPECIMENOrdering Facility: [facility] Address: [address] [place] [address] Performed By: #### 2 4362-6 ####[facility]CLIA [id number] [address] [place] Sodium [Moles/Vol] 136 mmol/L Normal 136-144 [facility] Comment on above: Order Comment: Speci men Type: BLOOD SPECIMENOrdering Facility: [facility] Address: [address] [place] [address] Performed By: #### 2 4362-6 ####[facility]ORYCLIA [id number] [address] Urea nitrogen [Mass/Vol] 49 mg/dL High 9-24 [facility] Comment on above: Order Comment: Speci men Type: BLOOD SPECIMENOrdering Facility: [facility] Address: [address] [place] [address] Performed By: #### 2 4362-6 ####[facility]ORYCLIA [id number] [address] STATES OF [facility] CBC panel Auto (Bld)on 07-25 Erythrocyte distribution width (RBC) [Ratio] 15.1 % High 11.5-15.0 [facility] Comment on above: Order Comment: Speci men Type: BLOOD SPECIMENOrdering Facility: [facility] Address: [address] [place] [address] Performed By: #### 5 8410-2 ####[facility]ORYCLIA [id number] [address] [place] Hematocrit (Bld) [Volume fraction] 34.4 % Low 39.0-51.0 [facility] Comment on above: Order Comment: Speci men Type: BLOOD SPECIMENOrdering Facility: [facility] Address: [address] [place] [address] Performed By: #### 5 8410-2 ####[facility]CLIA [id number] [address] STATES OF [facility] Hemoglobin (Bld) [Mass/Vol] 10.8 g/dL Low 13.0-17.0 [facility] Comment on above: Order Comment: Speci men Type: BLOOD SPECIMENOrdering Facility: [facility] Address: [address] [place] [address] Performed By: #### 5 8410-2 ####[facility]ORYCLIA [id number] [address] OF [facility] MCH (RBC) [Entitic mass] 28.3 pg Normal 26.0-34.0 [facility] Comment on above: Order Comment: Speci men Type: BLOOD SPECIMENOrdering Facility: [facility] Address: [address] [place] [address] Performed By: #### 5 8410-2 ####[facility]ORYCLIA [id number] [address] MCHC (RBC) [Mass/Vol] 31.4 g/dL Normal 30.5-36.0 [facility] Comment on above: Order Comment: Speci men Type: BLOOD SPECIMENOrdering Facility: [facility] Address: [address] [place] [address] Performed By: #### 5 8410-2 ####[facility]ORYCLIA [id number] [address] STATES [facility] MCV (RBC) [Entitic vol] 90.1 fL Normal 80.0-100.0 [facility] Comment on above: Order Comment: Speci men Type: BLOOD SPECIMENOrdering Facility: [facility] Address: [address] [place] [address] Performed By: #### 5 8410-2 ####[facility]ORYCLIA [id number] [address] [place] Nucleated RBC (Bld) [#/Vol] 10*3/uL Normal <0.01 [facility] Comment on above: Order Comment: Speci men Type: BLOOD SPECIMENOrdering Facility: [facility] Address: [address] [place] [address] Performed By: #### 5 8410-2 ####[facility]ORYCLIA [id number] [address] [place] Platelet mean volume (Bld) [Entitic vol] 10.1 fL Normal 9.0-12.7 [facility] Comment on above: Order Comment: Speci men Type: BLOOD SPECIMENOrdering Facility: [facility] Address: [address] [place] [address] Performed By: #### 5 8410-2 ####[facility]ORYCLIA [id number] [address] [place] Platelets (Bld) [#/Vol] 402 10*3/uL High 150-400 [facility] Comment on above: Order Comment: Speci men Type: BLOOD SPECIMENOrdering Facility: [facility] Address: [address] [place] [address] Performed By: #### 5 8410-2 ####[facility]ORYCLIA [id number] [address] [place] RBC (Bld) [#/Vol] 3.82 10*6/uL Low 4.20-6.00 [facility] Comment on above: Order Comment: Speci men Type: BLOOD SPECIMENOrdering Facility: [facility] Address: [address] [place] [address] Performed By: #### 5 8410-2 ####[facility]ORYCLIA [id number] [address] [place] WBC (Bld) [#/Vol] 12.31 10*3/uL High 3.70-11.00 [facility] Comment on above: Order Comment: Speci men Type: BLOOD SPECIMENOrdering Facility: [facility] Address: [facility] [place] [id number] Performed By: #### 5 8410-2 ####[facility]ORYCLIA [id number] [place] [address] [place] CONSULT PROGon 07-25-2021 CONSULT PROG HNO ID: [id number] Author: Halina Lentz RPh Service: Pharmacy Author Type: Pharmacist Type: Consult Progress Note Filed: 07/25/2021 8:49 AM Note Text: PHARMACY VANCOMYCIN DOSING NOTE Patient Name: James Reyes Admission Date: 07/21/2021 Date of Consult: 07/25/2021 Time of Consult: 8:49 AM 1. Vancomycin therapy has been discontinued. Vancomycin level(s) have been discontinued: Yes. Pharmacy vancomycin dosing service will sign off. Thank you for allowing us to participate in this patient's care. Please contact pharmacy if there are questions. Halina Lentz RPh Normal [facility] CONSULT PROG HNO ID: [id number] Author: Raji Lees MD Service: Infectious Disease Author Type: Physician Type: Consult Progress Note Filed: 07/25/2021 10:04 AM Note Text: PROGRESS NOTE INFECTIOUS DISEASE All of the below reviewed 07/25/2021 Portions of this note were copied so as to provide important historical information essential in contributing to medical decision making today. The copied portions of this note were carefully reviewed and edited as needed today so as to accurately reflect my own independent evaluation on this patient. BRIEF SUMMARY: 65 year old male with type 2 diabetes mellitus, peripheral neuropathy, prior CABG, prior left diabetic foot ulcer, [facility] [place], presented to [facility] 07/21/2021 for cough, shortness of breath and chest pain. Was found hypoxic. Febrile 101.6, WBC count elevated 13.6. Creatinine 1.5-->1.7. Serum procalcitonin 0.15. ASSESSMENT: 1. Fever, leukocytosis, mildly elevated procalcitonin, probable sepsis 2. Acute hypoxic respiratory failure, presumptive rt sided pneumonia, Ur Legionella and strep antigen negative, nasal MRSA screening negative 3. Kidney failure 4. Diabetes mellitus 5. History of penicillin allergy Respiratory status overall improving on steroids and broad-spectrum antibiotics. Estimated Creatinine Clearance: 71.6 mL/min (A) (based on SCr of 1.52 mg/dL (H)). RECOMMENDATIONS: ?Discontinue vancomycin and Levaquin ?To continue meropenem for total 7 days through July 29 ?D3 ?Consider switching from meropenem to oral levofloxacin if patient deemed appropriate for discharge prior to completion of 7 days of meropenem through July 29 ID will sign off; please call us back with additional questions or concerns. Subjective SUBJECTIVE: Interval Events: 07/25 remains on high flow?FiO2 60%, afebrile, elevated WBC count downtrending 12.3, serum creatinine 1.5, nasal MRSA screening negative, blood cultures no growth so far, urine Legionella and strep antigen negative --Overall feeling better --Cough productive of yellow sputum --No nausea, vomiting, diarrhea Active Antimicrobials (From admission, onward) Start Stop 07/25/21 0700 vancomycin 750 mg in D5W 250 mL Vial-Mate (VANCOCIN) 0.75 g, INTRAVENOUS, EVERY 12 HOURS -- 07/23/21 1200 meropenem 1 g in NaCl 0.9% 100 mL Vial-Bag (MERREM) 1 g, INTRAVENOUS, EVERY 8 HOURS -- 07/21/21 1330 vancomycin dosing and monitoring per pharmacy OTHER, DIRECTED -- Immunosuppressant: Steroids Medications: Current Facility-Administered Medications Medication Dose Route Frequency - iv contrast (radiology procedure) INTRAVENOUS DIRECTED PRN - vancomycin dosing and monitoring per pharmacy OTHER As Directed - acetylcysteine 100 mg/mL (10 %) 200 mg (MUCOMYST) 2 mL INHALATION q 20 MIN PRN - atorvastatin 80 mg tab(s) (LIPITOR) 80 mg ORAL DAILY - aspirin, enteric coated 81 mg tab(s) 81 mg ORAL DAILY - potassium chloride ER 20-40 mEq tab(s) (K-DUR, KLOR-CON) 20-40 mEq ORAL/FEEDING TUBE PRN Or - potassium chloride iv piggyback 20 mEq/100 mL 20 mEq INTRAVENOUS PRN - magnesium sulfate 2 g in sterile water 50 ml 2 g INTRAVENOUS PRN - phosphorus 500 mg tab(s) (K PHOS NEUTRAL) 500 mg ORAL/FEEDING TUBE PRN(NO DISPENSE) - calcium gluconate 4 g in NaCl 0.9% 250 mL 4 g INTRAVENOUS PRN - sodium chloride 0.9 % (flush) 3-5 mL (BD POSIFLUSH) 3-5 mL INTRAVENOUS q 12 H - ipratropium-albuterol 3 mL nebulizer solution (DUONEB) 3 mL INHALATION q 4 H while awake - albuterol 2.5 mg /3 mL (0.083 %) 2.5 mg (PROVENTIL) 2.5 mg INHALATION q 2 H PRN - acetaminophen 650 mg tab(s) (TYLENOL) 650 mg ORAL q 4 H PRN - NaCl 0.9% iv flush bag 20 mL INTRAVENOUS PRN - heparin 7,500 Units injection 7,500 Units SUBCUTANEOUS q 8 H - tamsulosin 0.4 mg cap(s) (FLOMAX) 0.4 mg ORAL BID - pregabalin 100 mg cap(s) (LYRICA) 100 mg ORAL TID - finasteride 5 mg tab(s) (PROSCAR) 5 mg ORAL DAILY - famotidine 20 mg tab(s) (PEPCID) 20 mg ORAL AT BEDTIME - meropenem 1 g in NaCl 0.9% 100 mL Vial-Bag (MERREM) 1 g INTRAVENOUS q 8 H - sodium chloride 0.9 % (flush) 2-10 mL (BD POSIFLUSH) 2-10 mL INTRAVENOUS DIRECTED PRN And - perflutren lipid microspheres 1.1 mg/mL 1.3 mL injection (DEFINITY) 1.3 mL INTRAVENOUS DIRECTED PRN - sodium chloride 0.9 % (flush) 2-10 mL (BD POSIFLUSH) 2-10 mL INTRAVENOUS DIRECTED PRN And - perflutren lipid microspheres 1.1 mg/mL 1.3 mL injection (DEFINITY) 1.3 mL INTRAVENOUS DIRECTED PRN - insulin regular 100 units in NaCl 0.9% 100 mL - ICU NOMOGRAM 0.5-30 Units/hr INTRAVENOUS CONTINUOUS - insulin regular human 2-10 Units bolus from bag 2-10 Units INTRAVENOUS PRN - dextrose 50% in water 25-50 mL syringe 25-50 mL INTRAVENOUS PRN - methylPREDNISolone sod succinate(PF) 20 mg injection (SOLU-Medrol) 20 mg INTRAVENOUS q 12 H - furosemide 40 mg injection (LASIX) 40 mg INTRAVENOUS DAILY - vancomycin 750 mg in D5W 250 mL Vial-Mate (VANCOCIN) 0.75 g (more content not included)... Normal [facility] Gas and Carbon monoxide pane l (BldV)on 07-25-2021 Base excess Calc (BldV) [Moles/Vol] 7 mmol/L High 0-2 [facility] Comment on above: Order Comment: Speci men Type: VENOUS BLOOD SPECIMENOrdering Facility: [facility] Address: [address] [place] [address] Performed By: #### 2 4344-4 ####[facility]ORATORYCLIA [id number] [address] STATES OF [facility] Body temperature 98.6 [degF] Normal [facility] Comment on above: Order Comment: Speci men Type: VENOUS BLOOD SPECIMENOrdering Facility: [facility] Address: [address] [place] [address] Performed By: #### 2 4344-4 ####[facility]ORATORYCLIA [id number] [address] [place] CALCIUM IONIZED, PH CORRECTED 1.17 mmol/L Normal 1.08-1.30 [facility] Comment on above: Order Comment: Speci men Type: VENOUS BLOOD SPECIMENOrdering Facility: [facility] Address: [address] [place] [address] Performed By: #### 2 4344-4 ####[facility]ORATORYCLIA [id number] [address] [place] Calcium.ionized (BldV) [Mass/Vol] 1.17 mmol/L Normal 1.08-1.30 [facility] Comment on above: Order Comment: Speci men Type: VENOUS BLOOD SPECIMENOrdering Facility: [facility] Address: [address] [place] [address] Performed By: #### 2 4344-4 ####[facility]ORATORYCLIA [id number] [address] [place] Carboxyhemoglobin (BldV) [Mass fraction] <1.0 Normal 0.0-2.0 [facility] Comment on above: Order Comment: Speci men Type: VENOUS BLOOD SPECIMENOrdering Facility: [facility] Address: [address] [address] Result Comment: Carb oxyhemoglobin Reference Range for Smokers: 2.0-8.0% Performed By: #### 2 4344-4 ####[facility]ORATORYCLIA [id number] [address] [place] CO2 (BldV) [Partial pressure] 54 mm[Hg] Normal 42-55 [facility] Comment on above: Order Comment: Speci men Type: VENOUS BLOOD SPECIMENOrdering Facility: [facility] Address: [address] [place] [address] Performed By: #### 2 4344-4 ####[facility]ORATORYCLIA [id number] [address] [place] CO2 [Moles/Vol] 30 mmol/L High 25-29 [facility] Comment on above: Order Comment: Speci men Type: VENOUS BLOOD SPECIMENOrdering Facility: [facility] Address: [address] [place] [address] Performed By: #### 2 4344-4 ####[facility]ORATORYCLIA [id number] [address] [place] Glucose [Mass/Vol] 198 mg/dL High 60-105 [facility] Comment on above: Order Comment: Speci men Type: VENOUS BLOOD SPECIMENOrdering Facility: [facility] Address: [address] [place] [address] Performed By: #### 2 4344-4 ####[facility]ORATORYCLIA [id number] [address] [place] HCO3 (Bld) [Moles/Vol] 33 mmol/L High 24-28 [facility] Comment on above: Order Comment: Speci men Type: VENOUS BLOOD SPECIMENOrdering Facility: [facility] Address: [address] [place] [address] Performed By: #### 2 4344-4 ####[facility]ORATORYCLIA [id number] [address] [place] Hematocrit (Bld) [Volume fraction] 35.5 % Low 39.0-51.0 [facility] Comment on above: Order Comment: Speci men Type: VENOUS BLOOD SPECIMENOrdering Facility: [facility] Address: [address] [address] Performed By: #### 2 4344-4 ####[facility]ORATORYCLIA [id number] [place] [address] [place] Hemoglobin (Bld) [Mass/Vol] 11.5 g/dL Low 13.0-17.0 [facility] Comment on above: Order Comment: Speci men Type: VENOUS BLOOD SPECIMENOrdering Facility: [facility] Address: [address] [place] [address] Performed By: #### 2 4344-4 ####[facility]ORATORYCLIA [id number] [address] [place] Methemoglobin (Bld) [Mass fraction] % Normal 0.0-1.5 [facility] Comment on above: Order Comment: Speci men Type: VENOUS BLOOD SPECIMENOrdering Facility: [facility] Address: [address] [place] [address] Performed By: #### 2 4344-4 ####[facility]ORATORYCLIA [id number] [address] [place] O2 THERAPY Hi-Flow Nasal Cannula-Heated Normal [facility] Comment on above: Order Comment: Speci men Type: VENOUS BLOOD SPECIMENOrdering Facility: [facility] Address: [address] [address] Performed By: #### 2 4344-4 ####[facility]ORATORYCLIA [id number] [address] [place] Oxygen (BldV) [Partial pressure] 38 mm[Hg] Normal 35-45 [facility] Comment on above: Order Comment: Speci men Type: VENOUS BLOOD SPECIMENOrdering Facility: [facility] Address: [address] [address] Performed By: #### 2 4344-4 ####[facility]ATORYCLIA [id number] [address] [place] Oxygen saturation in Blood 67 % Normal 60-85 [facility] Comment on above: Order Comment: Speci men Type: VENOUS BLOOD SPECIMENOrdering Facility: [facility] Address: [address] [place] [address] Performed By: #### 2 4344-4 ####[facility]ATORYCLIA [id number] [address] [place] Oxyhemoglobin (BldV) [Mass fraction] 66 % Normal 60-85 [facility] Comment on above: Order Comment: Speci men Type: VENOUS BLOOD SPECIMENOrdering Facility: [facility] Address: [address] [place] [address] Performed By: #### 2 4344-4 ####[facility]ORATORYCLIA [id number] [address] [place] pH (BldV) 7.40 [pH] Normal 7.32-7.42 [facility] Comment on above: Order Comment: Speci men Type: VENOUS BLOOD SPECIMENOrdering Facility: [facility] Address: [address] [place] [address] Performed By: #### 2 4344-4 ####[facility]ORATORYCLIA [id number] [address] [place] Potassium [Moles/Vol] 4.1 mmol/L Normal 3.5-5.0 [facility] Comment on above: Order Comment: Speci men Type: VENOUS BLOOD SPECIMENOrdering Facility: [facility] Address: [address] [place] [address] Performed By: #### 2 4344-4 ####[facility]ORATORYCLIA [id number] [address] [place] Sodium [Moles/Vol] 133 mmol/L Low 136-144 [facility] Comment on above: Order Comment: Speci men Type: VENOUS BLOOD SPECIMENOrdering Facility: [facility] Address: [address] [address] Performed By: #### 2 4344-4 ####[facility]ORATORYCLIA [id number] [address] [place] HIGH SENSITIVITY TROPONIN To n 07-25-2021 HIGH SENSITIVITY MEDARDO 24 ng/L High <12 [facility] Comment on above: Order Comment: Speci men Type: BLOOD SPECIMEN [facility] Address: [address] [place] [address] Result Comment: When assessing risk for acute coronary syndromes: In patients undergoing blood draw greater than or equal to 2 hours from symptom onset, with history of very low to moderate risk and non-ischemic ECG, an initial hs-Troponin T less than 12 ng/L AND a 1 hour delta hs-Troponin T less than 3 ng/L should be considered very low risk for 30 day MACE. Performed By: #### 5 8410-2 #### [facility] CLIA [id number] [address] [place] Renal function 2000 panelon 07-25-2021 Albumin [Mass/Vol] 2.9 g/dL Low 3.9-4.9 [facility] Comment on above: Order Comment: Speci men Type: BLOOD SPECIMENOrdering Facility: [facility] Address: [address] [address] Performed By: #### 2 4362-6 ####[facility]ORATORYCLIA [id number] [address] [place] Anion gap [Moles/Vol] 9 mmol/L Normal 9-18 [facility] Comment on above: Order Comment: Speci men Type: BLOOD SPECIMENOrdering Facility: [facility] Address: [address] [address] Performed By: #### 2 4362-6 ####[facility]ORATORYCLIA [id number] [address] [place] Calcium [Mass/Vol] 8.8 mg/dL Normal 8.5-10.2 [facility] Comment on above: Order Comment: Speci men Type: BLOOD SPECIMENOrdering Facility: [facility] Address: [address] [address] Performed By: #### 2 4362-6 ####[facility]ORATORYCLIA [id number] [place] [address] [place] Chloride [Moles/Vol] 96 mmol/L Low 97-105 [facility] Comment on above: Order Comment: Speci men Type: BLOOD SPECIMENOrdering Facility: [facility] Address: [address] [place] [address] Performed By: #### 2 4362-6 ####[facility]ORATORYCLIA [id number] [address] [place] CO2 [Moles/Vol] 30 mmol/L Normal 22-30 [facility] Comment on above: Order Comment: Speci men Type: BLOOD SPECIMENOrdering Facility: [facility] Address: [address] [place] [address] Performed By: #### 2 4362-6 ####[facility]ORATORYCLIA [id number] [address] [place] Creatinine [Mass/Vol] 1.52 mg/dL High 0.73-1.22 [facility] Comment on above: Order Comment: Speci men Type: BLOOD SPECIMENOrdering Facility: [facility] Address: [address] [place] [address] Performed By: #### 2 4362-6 ####[facility]ORATORYCLIA [id number] [address] ESTIMATED GLOMERULAR FILTRATION RATE 51 mL/min/1.73m??? Low >=60 [facility] Comment on above: Order Comment: Speci men Type: BLOOD SPECIMENOrdering Facility: [facility] Address: [address] [place] [address] Result Comment: Anu mated Glomerular Filtration Rate (eGFR) is calculated using the 2020 CKD-EPI creatinine equation. This equation utilizes serum creatinine, sex, and age as parameters. The creatinine assay has traceable calibration to isotope dilution-mass spectrometry. Refer to KDIGO guidelines for clinical interpretation. In patients with unstable renal function, e.g. those with acute kidney injury, the eGFR may not accurately reflect actual GFR. Performed By: #### 2 4362-6 ####[facility]ORATORYCLIA [id number] [place] [address] [place] Glucose [Mass/Vol] 160 mg/dL High 74-99 [facility] Comment on above: Order Comment: Crystal bustillo Type: BLOOD SPECIMENOrdering Facility: [facility] Address: [address] [address] Result Comment: The [place] [employer] Association (ADA) provides guidance for cutoff values for fasting glucose and random glucose. The ADA defines fasting as no caloric intake for at least 8 hours. Fasting plasma glucose results between 100 to 125 mg/dL indicate increased risk for diabetes (prediabetes). Fasting plasma glucose results greater than or equal to 126 mg/dL meet the criteria for diagnosis of diabetes. In the absence of unequivocal hyperglycemia, results should be confirmed by repeat testing. In a patient with classic symptoms of hyperglycemia or hyperglycemic crisis, random plasma glucose results greater than or equal to 200 mg/dL meet the criteria for diagnosis of diabetes. Reference: Standards of Medical Care in Diabetes 2016, [place] [employer] Association. Diabetes Care. 2016.39(Suppl 1). Performed By: #### 2 4362-6 ####[facility] CITYCLIA [id number] [place] [address] [place] Phosphate [Mass/Vol] 2.8 mg/dL Normal 2.7-4.8 [facility] Comment on above: Order Comment: Crystal bustillo Type: BLOOD SPECIMENOrdering Facility: [facility] Address: [address] [phone] Performed By: #### 2 4362-6 ####[facility]ORATORYCLIA [id number] [place] [address] [place] Potassium [Moles/Vol] 4.8 mmol/L Normal 3.7-5.1 [facility] Comment on above: Order Comment: Crystal bustillo Type: BLOOD SPECIMENOrdering Facility: [facility] Address: [address] [phone] Performed By: #### 2 4362-6 ####[facility]ORATORYCLIA [id number] [address] STATES OF [facility] Sodium [Moles/Vol] 135 mmol/L Low 136-144 [facility] Comment on above: Order Comment: Speci men Type: BLOOD SPECIMENOrdering Facility: [facility] Address: [address] [place] [address] Performed By: #### 2 4362-6 ####[facility]ORATORYCLIA [id number] [address] [place] Urea nitrogen [Mass/Vol] 55 mg/dL High 9-24 [facility] Comment on above: Order Comment: Speci men Type: BLOOD SPECIMENOrdering Facility: [facility] Address: [address] [place] [address] Performed By: #### 2 4362-6 ####[facility]ORATORYCLIA [id number] [address] OF [facility] ALLIED HEALTHon 07-24-2021 ALLIED HEALTH HNO ID: [id number] Author: NATALEE Vaughan) Service: Radiology Author Type: Technologist Type: Allied Health Filed: 07/24/2021 5:15 AM Note Text: Radiology Service Progress Note PATIENT NAME: James Reyes DATE OF SERVICE: July 24, 2021 TIME: 5:14 AM PATIENT IDENTITY VERIFICATION COMPLETED USING TWO (2) IDENTIFIERS: Name and Date of confirmed by identification band. FALL SCREENING: Has the patient had 2 falls in the last year or 1 fall with injury or currently using an Ambulatory Assistive Device (Walker, Cane, Wheelchair, Crutches, etc.)? Inpatient: Screened on floor PATIENT GENDER DATA: Male PATIENT RELEVANT IMPLANT DATA REVIEWED: Not Applicable RADIOLOGY DEPARTMENT: General X-ray: Exam(s) Completed: Chest X-Ray PERIPHERAL IV DATA: Not applicable SIGNED BY: RT Clement(R) July 24, 2021 5:14 AM Normal [facility] CBC panel Auto (Bld)on 07-24 Erythrocyte distribution width (RBC) [Ratio] 15.1 % High 11.5-15.0 [facility] Comment on above: Order Comment: Speci men Type: BLOOD SPECIMENOrdering Facility: [facility] Address: [address] [place] [address] Performed By: #### 9 4500-6 #### [facility] CLIA [id number] [address] Hematocrit (Bld) [Volume fraction] 34.3 % Low 39.0-51.0 [facility] Comment on above: Order Comment: Speci men Type: BLOOD SPECIMENOrdering Facility: [facility] Address: [address] [place] [address] Performed By: #### 9 4500-6 #### [facility] CLIA [id number] [address] OF [facility] Hemoglobin (Bld) [Mass/Vol] 10.4 g/dL Low 13.0-17.0 [facility] Comment on above: Order Comment: Speci men Type: BLOOD SPECIMENOrdering Facility: [facility] Address: [address] [place] [address] Performed By: #### 9 4500-6 #### [facility] CLIA [id number] [address] MCH (RBC) [Entitic mass] 28.0 pg Normal 26.0-34.0 [facility] Comment on above: Order Comment: Speci men Type: BLOOD SPECIMENOrdering Facility: [facility] Address: [address] [place] [address] Performed By: #### 9 4500-6 #### [facility] CLIA [id number] [address] MCHC (RBC) [Mass/Vol] 30.3 g/dL Low 30.5-36.0 [facility] Comment on above: Order Comment: Speci men Type: BLOOD SPECIMENOrdering Facility: [facility] Address: [address] [place] [address] Performed By: #### 9 4500-6 #### [facility] CLIA [id number] [address] MCV (RBC) [Entitic vol] 92.5 fL Normal 80.0-100.0 [facility] Comment on above: Order Comment: Speci men Type: BLOOD SPECIMENOrdering Facility: [facility] Address: [address] [place] [address] Performed By: #### 9 4500-6 #### [facility] CLIA [id number] [address] Nucleated RBC (Bld) [#/Vol] 10*3/uL Normal <0.01 [facility] Comment on above: Order Comment: Speci men Type: BLOOD SPECIMENOrdering Facility: [facility] Address: [address] [place] [address] Performed By: #### 9 4500-6 #### [facility] CLIA [id number] [address] Platelet mean volume (Bld) [Entitic vol] 10.5 fL Normal 9.0-12.7 [facility] Comment on above: Order Comment: Speci men Type: BLOOD SPECIMENOrdering Facility: [facility] Address: [address] [place] [address] Performed By: #### 9 4500-6 #### [facility] CLIA [id number] [address] [place] Platelets (Bld) [#/Vol] 342 10*3/uL Normal 150-400 [facility] Comment on above: Order Comment: Speci men Type: BLOOD SPECIMENOrdering Facility: [facility] Address: [address] [place] [address] Performed By: #### 9 4500-6 #### [facility] CLIA [id number] [address] [place] RBC (Bld) [#/Vol] 3.71 10*6/uL Low 4.20-6.00 [facility] Comment on above: Order Comment: Crystal bustillo Type: BLOOD SPECIMENOrdering Facility: [facility] Address: [address] [phone] Performed By: #### 9 4500-6 #### [facility] CLIA [id number] [address] [place] WBC (Bld) [#/Vol] 15.57 10*3/uL High 3.70-11.00 [facility] Comment on above: Order Comment: Spectracie bustillo Type: BLOOD SPECIMENOrdering Facility: [facility] Address: [address] [phone] Performed By: #### 9 4500-6 #### [facility] CLIA [id number] [address] CONSULT PROGon 07-24-2021 CONSULT PROG HNO ID: [id number] Author: Ibeth Oneal RPh Service: Pharmacy Author Type: Pharmacist Type: Consult Progress Note Filed: 07/24/2021 4:23 PM Note Text: PHARMACY VANCOMYCIN DOSING NOTE Patient Name: James Reyes Admission Date: 07/21/2021 Date of Consult: 07/24/2021 Time of Consult: 4:14 PM Indication: Pneumonia Goal Range: 15-25 mcg/mL RECOMMENDATIONS/PLAN: Pharmacy consulted for vancomycin dosing for James Reyes, a 65 year old, male who is being treated with vancomycin for PNA 1. Patient is currently ordered Vancomycin 1.25 g IV q12h. Today is day 4 of therapy. 2. The most recent vancomycin level was 25.8 mcg/mL drawn at 1433 on 07/24. This is a 25.5 hour level on the 4th day of therapy. 3. Will decrease vancomycin to 750 mg with a dosing interval of q12h. Will time dose to start on 07/25 at 0700 to allow for further clearance of vancomycin. 4. The next vancomycin level has been ordered for 07/26 at 1600 (prior to the 4th dose) (Completed) 5. S. aureus nasal PCR swab ordered - staph culture pending We will follow patient renal function, vancomycin levels and doses with you during the course of therapy. Additional recommendations will appear in follow up notes. If [place] have any questions[place] [phone]. Age: [age] year old Allergies: ALLERGIES Allergen Reactions - Penicillins Unknown - Teramycin [Oxytetra* Unknown Last 3 Encounter Wt Readings: Date: Wt: 07/21/2021 145.3 kg (320 lb 5.3 oz) 12/26/2016 90.7 kg (200 lb) Last 1 Encounter Ht Readings: Date: Ht: 07/21/2021 182.9 cm (6') CrCl: 69.9 mL/min Temp (24hrs), Av.5 ?C (97.7 ?F), Min:35.9 ?C (96.62 ?F), Max:37.1 ?C (98.78 ?F) - Current Temp: 36 ?C (96.8 ?F) Labs BUN (mg/dL) Date Value 07/24/2021 55 (H) 07/23/2021 42 (H) 07/22/2021 29 (H) Creatinine (mg/dL) Date Value 07/24/2021 1.58 (H) 07/23/2021 1.74 (H) 07/22/2021 1.73 (H) WBC (k/uL) Date Value 07/24/2021 15.57 (H) 07/23/2021 18.08 (H) 07/22/2021 15.27 (H) Vancomycin Levels: Vancomycin (ug/mL) Date/Time Value 07/24/2021 1433 25.8 (H) 07/23/2021 0044 21.0 (H) Ibeth Oneal, [facility] Normal [facility] NT-proBNP SerPl-ncon 07-24 Natriuretic peptide.B prohormone N-Terminal [Mass/Vol] 937 pg/mL High <125 [facility] Comment on above: Order Comment: Speci men Type: BLOOD SPECIMENOrdering Facility: [facility] Address: [address] [place] [address] Performed By: #### 2 4362-6, 43077-1 ####[facility]ORATORYCLIA [id number] [place] [address] [place] Renal function 2000 panelon 07-24-2021 Albumin [Mass/Vol] 2.5 g/dL Low 3.9-4.9 [facility] Comment on above: Order Comment: Speci men Type: BLOOD SPECIMENOrdering Facility: [facility] Address: [address] [place] [address] Performed By: #### 2 4362-6, 05592-5 ####[facility]ORYCLIA [id number] [place] [address] [place] Anion gap [Moles/Vol] 12 mmol/L Normal 9-18 [facility] Comment on above: Order Comment: Speci men Type: BLOOD SPECIMENOrdering Facility: [facility] Address: [address] [place] [address] Performed By: #### 2 4362-6, 74877-8 ####[facility]ATORYCLIA [id number] [place] [address] [place] Calcium [Mass/Vol] 8.5 mg/dL Normal 8.5-10.2 [facility] Comment on above: Order Comment: Speci men Type: BLOOD SPECIMENOrdering Facility: [facility] Address: [address] [place] [address] Performed By: #### 2 4362-6, 63717-8 ####[facility]ATORYCLIA [id number] [place] [address] [place] Chloride [Moles/Vol] 93 mmol/L Low 97-105 [facility] Comment on above: Order Comment: Speci men Type: BLOOD SPECIMENOrdering Facility: [facility] Address: [address] [place] [address] Performed By: #### 2 4362-6, 33241-7 ####[facility]ATORYCLIA [id number] [place] [address] [place] CO2 [Moles/Vol] 24 mmol/L Normal 22-30 [facility] Comment on above: Order Comment: Speci men Type: BLOOD SPECIMENOrdering Facility: [facility] Address: [address] [place] [address] Performed By: #### 2 4362-6, 79100-3 ####[facility]ATORYCLIA [id number] [place] [address] [place] Creatinine [Mass/Vol] 1.58 mg/dL High 0.73-1.22 [facility] Comment on above: Order Comment: Spectracie bustillo Type: BLOOD SPECIMENOrdering Facility: [facility] Address: [address] [place] [address] Performed By: #### 2 4362-6, 82647-1 ####[facility]ATORYCLIA [id number] [place] [address] [place] ESTIMATED GLOMERULAR FILTRATION RATE 49 mL/min/1.73m??? Low >=60 [facility] Comment on above: Order Comment: Crystal bustillo Type: BLOOD SPECIMENOrdering Facility: [facility] Address: [address] [place] [address] Result Comment: Anu mated Glomerular Filtration Rate (eGFR) is calculated using the 2020 CKD-EPI creatinine equation. This equation utilizes serum creatinine, sex, and age as parameters. The creatinine assay has traceable calibration to isotope dilution-mass spectrometry. Refer to KDIGO guidelines for clinical interpretation. In patients with unstable renal function, e.g. those with acute kidney injury, the eGFR may not accurately reflect actual GFR. Performed By: #### 2 4362-6, 81738-9 ####[facility]ATORYCLIA [id number] [place] [address] [place] Glucose [Mass/Vol] 417 mg/dL High 74-99 [facility] Comment on above: Order Comment: Crystal keny Type: BLOOD SPECIMENOrdering Facility: [facility] Address: [address] [place] [address] Result Comment: The [place] Diabetes Association (ADA) provides guidance for cutoff values for fasting glucose and random glucose. The ADA defines fasting as no caloric intake for at least 8 hours. Fasting plasma glucose results between 100 to 125 mg/dL indicate increased risk for diabetes (prediabetes). Fasting plasma glucose results greater than or equal to 126 mg/dL meet the criteria for diagnosis of diabetes. In the absence of unequivocal hyperglycemia, results should be confirmed by repeat testing. In a patient with classic symptoms of hyperglycemia or hyperglycemic crisis, random plasma glucose results greater than or equal to 200 mg/dL meet the criteria for diagnosis of diabetes. Reference: Standards of Medical Care in Diabetes 2016, [place] [employer] Association. Diabetes Care. 2016.39(Suppl 1). Performed By: #### 2 4362-6, 96742-8 ####[facility] LABORATORYCLIA [id number] [place] [address] [place] Phosphate [Mass/Vol] 2.4 mg/dL Low 2.7-4.8 [facility] Comment on above: Order Comment: Speci men Type: BLOOD SPECIMENOrdering Facility: [facility] Address: [address] [place] [address] Performed By: #### 2 4362-6, 19338-2 ####[facility] LABORATORYCLIA [id number] [place] [address] [place] Potassium [Moles/Vol] 5.4 mmol/L High 3.7-5.1 [facility] Comment on above: Order Comment: Speci men Type: BLOOD SPECIMENOrdering Facility: [facility] Address: [address] [place] [address] Performed By: #### 2 4362-6, 42916-1 ####[facility] LABORATORYCLIA [id number] [address] [place] Sodium [Moles/Vol] 129 mmol/L Low 136-144 [facility] Comment on above: Order Comment: Speci men Type: BLOOD SPECIMENOrdering Facility: [facility] Address: [address] [place] [address] Performed By: #### 2 4362-6, 89723-1 ####[facility]ORATORYCLIA [id number] [address] [place] Urea nitrogen [Mass/Vol] 55 mg/dL High 9-24 [facility] Comment on above: Order Comment: Speci men Type: BLOOD SPECIMENOrdering Facility: [facility] Address: [address] [place] [address] Performed By: #### 2 4362-6, 78844-1 ####[facility] LABORATORYCLIA [id number] [place] [id number] [facility] Vancomycin random [Mass/Vol] on 07-24-2021 Vancomycin [Mass/Vol] 25.8 ug/mL High 10.0-20.0 [facility] Comment on above: Order Comment: Speci men Type: BLOOD SPECIMENOrdering Facility: [facility] Address: [address] [place] [address] Result Comment: Refe rence ranges and high/low indicator flags are provided as general guidelines only. The treating physician must determine appropriate target levels/dosing based on the specific clinical situation. Performed By: #### 4 091-5 ####ARJOSE MAN[facility]EL [facility] LABORATORYCLIA [id number] [place] [address] [place] XR CHEST 1V FRONTALon 2021 XR CHEST 1V FRONTAL * * *Final Report* * * DATE OF EXAM: Jul 24 2021 5:14AM AKX [id number] - XR CHEST 1V FRONTAL / PROCEDURE REASON: Acute respiratory illness * * * * Physician Interpretation * * * * EXAMINATION: CHEST RADIOGRAPH (SINGLE VIEW AP OR PA) CLINICAL HISTORY: Acute respiratory illness MQ: XC1_5 Comparison: 09/27/2006 RESULT: This is a limited examination due to the patient's size. Lines, tubes, and devices: None. Lungs and pleura: There is a diffuse increased opacity involving the right hemithorax suggestive of a layering right pleural effusion. There is suggestion of bilateral lower lungs infiltrates compatible with pneumonia. There is a prominent soft tissue abnormality in the medial aspect of the right apex/upper mediastinum which may represent an area of consolidation/atelectas is involving the right upper lung. Widening of the upper mediastinum due to underlying pathology cannot be excluded. A follow-up exam with chest PA and lateral views recommended. Cardiomediastinal silhouette: There is mild cardiomegaly Other: None. IMPRESSION: Right pleural and bilateral parenchymal changes with prominence of the upper mediastinum as described above. A follow-up exam is recommended. Assistant Mechanic: DUYEN Transcribe Date/Time: Jul 24 2021 9:07A Dictated by : SAM MARCELINO MD This examination was interpreted and the report reviewed and electronically signed by: SAM MARCELINO MD on Jul 24 2021 9:09AM EST [id number] Normal [facility] CBC panel Auto (Bld)on 07-23 Erythrocyte distribution width (RBC) [Ratio] 15.2 % High 11.5-15.0 [facility] Comment on above: Order Comment: Speci men Type: BLOOD SPECIMEN [facility] Address: [address] [place] [address] Performed By: #### 5 8410-2 #### [facility] CLIA [id number] [address] Hematocrit (Bld) [Volume fraction] 37.8 % Low 39.0-51.0 [facility] Comment on above: Order Comment: Speci men Type: BLOOD SPECIMEN [facility] Address: [address] [place] [address] Performed By: #### 5 8410-2 #### [facility] CLIA [id number] [address] [place] Hemoglobin (Bld) [Mass/Vol] 11.5 g/dL Low 13.0-17.0 [facility] Comment on above: Order Comment: Speci men Type: BLOOD SPECIMEN [facility] Address: [address] [place] [address] Performed By: #### 5 8410-2 #### [employer] [facility] CLIA [id number] [address] [place] MCH (RBC) [Entitic mass] 28.0 pg Normal 26.0-34.0 [facility] Comment on above: Order Comment: Speci men Type: BLOOD SPECIMEN [facility] Address: [address] [place] [address] Performed By: #### 5 8410-2 #### [facility] CLIA [id number] [address] MCHC (RBC) [Mass/Vol] 30.4 g/dL Low 30.5-36.0 [facility] Comment on above: Order Comment: Speci men Type: BLOOD SPECIMEN [facility] Address: [address] [place] [address] Performed By: #### 5 8410-2 #### [facility] CLIA [id number] [address] MCV (RBC) [Entitic vol] 92.0 fL Normal 80.0-100.0 [facility] Comment on above: Order Comment: Speci men Type: BLOOD SPECIMEN [facility] Address: [address] [place] [address] Performed By: #### 5 8410-2 #### [facility] CLIA [id number] [address] Nucleated RBC (Bld) [#/Vol] 10*3/uL Normal <0.01 [facility] Comment on above: Order Comment: Speci men Type: BLOOD SPECIMEN [facility] Address: [address] [place] [address] Performed By: #### 5 8410-2 #### [facility] CLIA [id number] [address] Platelet mean volume (Bld) [Entitic vol] 9.9 fL Normal 9.0-12.7 [facility] Comment on above: Order Comment: Speci men Type: BLOOD SPECIMEN [facility] Address: [address] [place] [address] Performed By: #### 5 8410-2 #### [facility] CLIA [id number] [address] [place] Platelets (Bld) [#/Vol] 359 10*3/uL Normal 150-400 [facility] Comment on above: Order Comment: Speci men Type: BLOOD SPECIMEN [facility] Address: [address] [address] Performed By: #### 5 8410-2 #### [facility] CLIA [id number] [address] RBC (Bld) [#/Vol] 4.11 10*6/uL Low 4.20-6.00 [facility] Comment on above: Order Comment: Speci men Type: BLOOD SPECIMEN [facility] Address: [address] [place] [address] Performed By: #### 5 8410-2 #### [facility] CLIA [id number] [address] WBC (Bld) [#/Vol] 18.08 10*3/uL High 3.70-11.00 [facility] Comment on above: Order Comment: Speci men Type: BLOOD SPECIMEN [facility] Address: [address] [place] [address] Performed By: #### 5 8410-2 #### [facility] CLIA [id number] [address] CONSULTon 07-23-2021 CONSULT HNO ID: [id number] Author: Raji Lees MD Service: Infectious Disease Author Type: Physician Type: Consults Filed: 07/23/2021 1:50 PM Note Text: INITIAL CONSULT INFECTIOUS DISEASE SERVICE DATE: 07/23/2021 SERVICE TIME: 11:58 AM We were asked to evaluate Mr. James Reyes, a 65 year old yo male by Dr. Howell for "Sepsis, not improving, now on meropenem". Our findings and recommendations will be communicated through the shared medical record. ASSESSMENT: 1. Fever, leukocytosis, mildly elevated procalcitonin, probable sepsis 2. Acute hypoxic respiratory failure, presumptive rt sided pneumonia, Ur Legionella and strep antigen negative 3. Kidney failure 4. Diabetes mellitus 5. History of penicillin allergy Based on his respiratory symptoms and no other obvious source of infection, the etiology of hypoxia and sepsis-like picture is probably secondary to right-sided pneumonia. Estimated Creatinine Clearance: 63.2 mL/min (A) (based on SCr of 1.74 mg/dL (H)). RECOMMENDATIONS: ?Continue vancomycin and Levaquin ?Agree with meropenem started today ?To follow-up on blood cultures and nasal MRSA screening Subjective SUBJECTIVE: HPI: 65 year old male with type 2 diabetes mellitus, peripheral neuropathy, prior CABG, prior left diabetic foot ulcer, residing in a [facility], presented to [facility] 07/21/2021 for cough, shortness of breath and chest pain. Was found hypoxic. Febrile 101.6, WBC count elevated 13.6. Creatinine 1.5-->1.7. Serum procalcitonin 0.15. WBC count uptrending 18.0 Oxygen demand 6 L-->CPAP-->BIPAP-f80 --> Levofloxacin since 07/21 Tobramycin x1 07/21 Vancomycin since 07/21 Has a history of penicillin allergy, during childhood. Active Antimicrobials (From admission, onward) Start Stop 07/23/21 1200 meropenem 1 g in NaCl 0.9% 100 mL Vial-Bag (MERREM) 1 g, INTRAVENOUS, EVERY 8 HOURS -- 07/23/21 0200 vancomycin 1.25 g in D5W 250 mL (VANCOCIN) 1.25 g, INTRAVENOUS, EVERY 12 HOURS -- 07/21/21 1330 vancomycin dosing and monitoring per pharmacy OTHER, DIRECTED -- Immunosuppressants: solumedrol Current other medications reviewed. Current Facility-Administered Medications Medication Dose Route Frequency - iv contrast (radiology procedure) INTRAVENOUS DIRECTED PRN - vancomycin dosing and monitoring per pharmacy OTHER As Directed - acetylcysteine 100 mg/mL (10 %) 200 mg (MUCOMYST) 2 mL INHALATION q 20 MIN PRN - atorvastatin 80 mg tab(s) (LIPITOR) 80 mg ORAL DAILY - aspirin, enteric coated 81 mg tab(s) 81 mg ORAL DAILY - potassium chloride ER 20-40 mEq tab(s) (K-DUR, KLOR-CON) 20-40 mEq ORAL/FEEDING TUBE PRN Or - potassium chloride iv piggyback 20 mEq/100 mL 20 mEq INTRAVENOUS PRN - magnesium sulfate 2 g in sterile water 50 ml 2 g INTRAVENOUS PRN - phosphorus 500 mg tab(s) (K PHOS NEUTRAL) 500 mg ORAL/FEEDING TUBE PRN(NO DISPENSE) - calcium gluconate 4 g in NaCl 0.9% 250 mL 4 g INTRAVENOUS PRN - sodium chloride 0.9 % (flush) 3-5 mL (BD POSIFLUSH) 3-5 mL INTRAVENOUS q 12 H - ipratropium-albuterol 3 mL nebulizer solution (DUONEB) 3 mL INHALATION q 4 H while awake - albuterol 2.5 mg /3 mL (0.083 %) 2.5 mg (PROVENTIL) 2.5 mg INHALATION q 2 H PRN - acetaminophen 650 mg tab(s) (TYLENOL) 650 mg ORAL q 4 H PRN - NaCl 0.9% iv flush bag 20 mL INTRAVENOUS PRN - heparin 7,500 Units injection 7,500 Units SUBCUTANEOUS q 8 H - tamsulosin 0.4 mg cap(s) (FLOMAX) 0.4 mg ORAL BID - methylPREDNISolone sod succinate(PF) 40 mg injection (SOLU-Medrol) 40 mg INTRAVENOUS q 12 H - pregabalin 100 mg cap(s) (LYRICA) 100 mg ORAL TID - dextrose 40 % 15 g 15 g ORAL PRN Or - glucagon 1 mg injection 1 mg INTRAMUSCULAR PRN Or - dextrose 50% in water 25 mL syringe 12.5 g INTRAVENOUS PRN - insulin regular human injection (short acting) (NovoLIN R,HumuLIN R) SUBCUTANEOUS q 6 H - finasteride 5 mg tab(s) (PROSCAR) 5 mg ORAL DAILY - famotidine 20 mg tab(s) (PEPCID) 20 mg ORAL AT BEDTIME - vancomycin 1.25 g in D5W 250 mL (VANCOCIN) 1.25 g INTRAVENOUS q 12 HR - meropenem 1 g in NaCl 0.9% 100 mL Vial-Bag (MERREM) 1 g INTRAVENOUS q 8 H - insulin glargine 45 Units pen (long acting) (LANTUS SOLOSTAR, BASAGLAR KWIKPEN) 45 Units SUBCUTANEOUS DAILY (8 AM) PAST MEDICAL HISTORY Diagnosis Date - Foot infection - Hypercholesterolemia - Neuropathy - Type II diabetes mellitus (HCC) PAST SURGICAL HISTORY Procedure Laterality Date - PAST SURGICAL HISTORY OF Cholecystectomy - PAST SURGICAL HISTORY OF Thyroid Tumor Removal - PAST SURGICAL HISTORY OF Left Foot Social History Tobacco Use - Smoking status: Current Every Day Smoker Packs/day: 1.00 Types: Cigarettes - Smokeless tobacco: Never Used Substance Use Topics - Alcohol use: No - Drug use: No FAMILY HISTORY Problem Relation Age of Onset - other (DM II) Father ALLERGIES Allergen Reactions - Penicillins Unknown - Teramycin [Oxytetra* Unknown Objective OBJECTIVE: REVIEW O (more content not included)... Normal [facility] CONSULT PROGon 07-23-2021 CONSULT PROG HNO ID: [id number] Author: Isabel Gao RPh Service: Pharmacy Author Type: Pharmacist Type: Consult Progress Note Filed: 07/23/2021 1:58 AM Note Text: PHARMACY VANCOMYCIN DOSING NOTE Patient Name: James Reyes Admission Date: 07/21/2021 Date of Consult: 07/23/2021 Time of Consult: 1:47 AM Indication: Pneumonia Goal Range: 15-25 mcg/mL RECOMMENDATIONS/PLAN: Pharmacy consulted for vancomycin dosing for James Reyes, a 65 year old, male who is being treated with vancomycin for PNA. 1. Patient is currently ordered Vancomycin 1.5 g IV q12h. Today is day 2 of therapy. 2. The most recent vancomycin level was 21.0 mcg/mL drawn at 0044 on 07-23-2021. This is a 12 hour level on the 2 day of therapy. 3. Will decrease vancomycin to 1.25 g with a dosing interval of q12h. Patient renal function is trending to JESSIKA and is Vancomycin trough on the high end of goal after only 3 doses. 4. The next vancomycin level has been ordered for 07-24-2021 @ 1200 (Completed) 5. S. aureus nasal PCR swab ordered. We will follow patient renal function, vancomycin levels and doses with you during the course of therapy. Additional recommendations will appear in follow up notes. If you have any questions[place] [phone]. Age: [age] year old Allergies: ALLERGIES Allergen Reactions - Penicillins Unknown - Teramycin [Oxytetra* Unknown Last 3 Encounter Wt Readings: Date: Wt: 07/21/2021 138.6 kg (305 lb 8.9 oz) 12/26/2016 90.7 kg (200 lb) Last 1 Encounter Ht Readings: Date: Ht: 07/21/2021 182.9 cm (6') CrCl: 61.9 mL/min Temp (24hrs), Av.1 ?C (98.7 ?F), Min:35.8 ?C (96.44 ?F), Max:37.9 ?C (100.22 ?F) - Current Temp: 37 ?C (98.6 ?F) Labs BUN (mg/dL) Date Value 07/23/2021 42 (H) 07/22/2021 29 (H) 07/21/2021 25 (H) Creatinine (mg/dL) Date Value 07/23/2021 1.74 (H) 07/22/2021 1.73 (H) 07/21/2021 1.52 (H) WBC (k/uL) Date Value 07/23/2021 18.08 (H) 07/22/2021 15.27 (H) 07/21/2021 13.68 (H) Vancomycin Levels: Vancomycin (ug/mL) Date/Time Value 07/23/2021 0044 21.0 (H) Isabel Gao [facility] Normal [facility] Gas and Carbon monoxide pane l (BldV)on 07-23-2021 Base excess Calc (BldV) [Moles/Vol] 2 mmol/L Normal 0-2 [facility] Comment on above: Order Comment: Speci men Type: VENOUS BLOOD SPECIMENOrdering Facility: [facility] Address: [address] [place] [address] Performed By: #### 2 4344-4 ####[facility]ORATORYCLIA [id number] [address] [place] Body temperature 98.24 [degF] Normal [facility] Comment on above: Order Comment: Speci men Type: VENOUS BLOOD SPECIMENOrdering Facility: [facility] Address: [address] [address] Performed By: #### 2 4344-4 ####[facility]ORATORYCLIA [id number] [place] [address] [place] CALCIUM IONIZED, PH CORRECTED 1.06 mmol/L Low 1.08-1.30 [facility] Comment on above: Order Comment: Speci men Type: VENOUS BLOOD SPECIMENOrdering Facility: [facility] Address: [address] [address] Performed By: #### 2 4344-4 ####[facility]ORATORYCLIA [id number] [address] [place] Calcium.ionized (BldV) [Mass/Vol] 1.12 mmol/L Normal 1.08-1.30 [facility] Comment on above: Order Comment: Speci men Type: VENOUS BLOOD SPECIMENOrdering Facility: [facility] Address: [address] [place] [address] Performed By: #### 2 4344-4 ####[facility]ATORYCLIA [id number] [address] Carboxyhemoglobin (BldV) [Mass fraction] 1.6 % Normal 0.0-2.0 [facility] Comment on above: Order Comment: Speci men Type: VENOUS BLOOD SPECIMENOrdering Facility: [facility] Address: [address] [place] [address] Result Comment: Carb oxyhemoglobin Reference Range for Smokers: 2.0-8.0% Performed By: #### 2 4344-4 ####[facility]ATORYCLIA [id number] [address] [place] CO2 (BldV) [Partial pressure] 62 mm[Hg] High 42-55 [facility] Comment on above: Order Comment: Speci men Type: VENOUS BLOOD SPECIMENOrdering Facility: [facility] Address: [address] [place] [address] Performed By: #### 2 4344-4 ####[facility]ATORYCLIA [id number] [address] [place] CO2 [Moles/Vol] 27 mmol/L Normal 25-29 [facility] Comment on above: Order Comment: Speci men Type: VENOUS BLOOD SPECIMENOrdering Facility: [facility] Address: [address] [place] [address] Performed By: #### 2 4344-4 ####[facility]ATORYCLIA [id number] [address] [place] CO2 adjusted to patient's actual temperature (BldV) [Partial pressure] 61 mmHg High 42-55 [facility] Comment on above: Order Comment: Speci men Type: VENOUS BLOOD SPECIMENOrdering Facility: [facility] Address: [address] [address] Performed By: #### 2 4344-4 ####[facility]ATORYCLIA [id number] [place] [address] [place] Glucose [Mass/Vol] mg/dL High 60-105 [facility] Comment on above: Order Comment: Speci men Type: VENOUS BLOOD SPECIMENOrdering Facility: [facility] Address: [address] [place] [address] Result Comment: Resu lt is above the technical range. Suggest that a glucose order be sent to the laboratory for testing. Performed By: #### 2 4344-4 ####[facility]ATORYCLIA [id number] [place] [address] [place] HCO3 (Bld) [Moles/Vol] 29 mmol/L High 24-28 [facility] Comment on above: Order Comment: Speci men Type: VENOUS BLOOD SPECIMENOrdering Facility: [facility] Address: [address] [place] [address] Performed By: #### 2 4344-4 ####[facility]ATORYCLIA [id number] [place] [address] [place] Hematocrit (Bld) [Volume fraction] 33.5 % Low 39.0-51.0 [facility] Comment on above: Order Comment: Speci men Type: VENOUS BLOOD SPECIMENOrdering Facility: [facility] Address: [address] [address] Performed By: #### 2 4344-4 ####[facility]ATORYCLIA [id number] [place] [address] [place] Hemoglobin (Bld) [Mass/Vol] 10.8 g/dL Low 13.0-17.0 [facility] Comment on above: Order Comment: Speci men Type: VENOUS BLOOD SPECIMENOrdering Facility: [facility] Address: [address] [address] Performed By: #### 2 4344-4 ####[facility]ATORYCLIA [id number] [address] Methemoglobin (Bld) [Mass fraction] % Normal 0.0-1.5 [facility] Comment on above: Order Comment: Speci men Type: VENOUS BLOOD SPECIMENOrdering Facility: [facility] Address: [address] [place] [address] Performed By: #### 2 4344-4 ####[facility]ORYCLIA [id number] [address] O2 THERAPY Positive Normal [facility] Comment on above: Order Comment: Speci men Type: VENOUS BLOOD SPECIMENOrdering Facility: [facility] Address: [address] [place] [address] Performed By: #### 2 4344-4 ####[facility]ATORYCLIA [id number] [address] Oxygen (BldV) [Partial pressure] 52 mm[Hg] High 35-45 [facility] Comment on above: Order Comment: Speci men Type: VENOUS BLOOD SPECIMENOrdering Facility: [facility] Address: [address] [place] [address] Performed By: #### 2 4344-4 ####[facility]ATORYCLIA [id number] [address] Oxygen adjusted to patient's actual temperature (BldV) [Partial pressure] 52 mmHg High 35-45 [facility] Comment on above: Order Comment: Speci men Type: VENOUS BLOOD SPECIMENOrdering Facility: [facility] Address: [address] [place] [address] Performed By: #### 2 4344-4 ####[facility]ORYCLIA [id number] [address] Oxygen saturation in Blood 83 % Normal 60-85 [facility] Comment on above: Order Comment: Speci men Type: VENOUS BLOOD SPECIMENOrdering Facility: [facility] Address: [address] [place] [address] Performed By: #### 2 4344-4 ####[facility]ORYCLIA [id number] [address] Oxyhemoglobin (BldV) [Mass fraction] 81 % Normal 60-85 [facility] Comment on above: Order Comment: Speci men Type: VENOUS BLOOD SPECIMENOrdering Facility: [facility] Address: [address] [place] [address] Performed By: #### 2 4344-4 ####[facility]ORATORYCLIA [id number] [address] [place] pH (BldV) 7.29 [pH] Low 7.32-7.42 [facility] Comment on above: Order Comment: Speci men Type: VENOUS BLOOD SPECIMENOrdering Facility: [facility] Address: [address] [place] [address] Performed By: #### 2 4344-4 ####[facility]ORATORYCLIA [id number] [address] pH adjusted to patient's actual temperature (BldV) 7.29 Low 7.32-7.42 [facility] Comment on above: Order Comment: Speci men Type: VENOUS BLOOD SPECIMENOrdering Facility: [facility] Address: [address] [place] [address] Performed By: #### 2 4344-4 ####[facility]ORATORYCLIA [id number] [address] [place] Potassium [Moles/Vol] 5.1 mmol/L High 3.5-5.0 [facility] Comment on above: Order Comment: Speci men Type: VENOUS BLOOD SPECIMENOrdering Facility: [facility] Address: [address] [place] [address] Performed By: #### 2 4344-4 ####[facility]ORATORYCLIA [id number] [address] [place] Sodium [Moles/Vol] 131 mmol/L Low 136-144 [facility] Comment on above: Order Comment: Speci men Type: VENOUS BLOOD SPECIMENOrdering Facility: [facility] Address: [address] [place] [address] Performed By: #### 2 4344-4 ####[facility]ORATORYCLIA [id number] [address] [place] Renal function 2000 panelon 07-23-2021 Albumin [Mass/Vol] 3.0 g/dL Low 3.9-4.9 [facility] Comment on above: Order Comment: Speci men Type: BLOOD SPECIMENOrdering Facility: [facility] Address: [address] [place] [address] Performed By: #### 2 4362-6 ####[facility]ORATORYCLIA [id number] [place] [address] [place] Anion gap [Moles/Vol] 11 mmol/L Normal 9-18 [facility] Comment on above: Order Comment: Speci men Type: BLOOD SPECIMENOrdering Facility: [facility] Address: [address] [place] [address] Performed By: #### 2 4362-6 ####[facility]ATORYCLIA [id number] [address] [place] Calcium [Mass/Vol] 8.8 mg/dL Normal 8.5-10.2 [facility] Comment on above: Order Comment: Speci men Type: BLOOD SPECIMENOrdering Facility: [facility] Address: [address] [place] [address] Performed By: #### 2 4362-6 ####[facility]ORATORYCLIA [id number] [place] [place] [address] [place] Chloride [Moles/Vol] 95 mmol/L Low 97-105 [facility] Comment on above: Order Comment: Speci men Type: BLOOD SPECIMENOrdering Facility: [facility] Address: [address] [place] [address] Performed By: #### 2 4362-6 ####[facility] LABORATORYCLIA [id number] [place] [address] [place] CO2 [Moles/Vol] 26 mmol/L Normal 22-30 [facility] Comment on above: Order Comment: Speci men Type: BLOOD SPECIMENOrdering Facility: [facility] Address: [address] [place] [address] Performed By: #### 2 4362-6 ####[facility]ORATORYCLIA [id number] [address] [place] Creatinine [Mass/Vol] 1.74 mg/dL High 0.73-1.22 [facility] Comment on above: Order Comment: Speci men Type: BLOOD SPECIMENOrdering Facility: [facility] Address: [address] [place] [address] Performed By: #### 2 4362-6 ####[facility] CITYCLIA [id number] [address] ESTIMATED GLOMERULAR FILTRATION RATE 43 mL/min/1.73m??? Low >=60 [facility] Comment on above: Order Comment: Speci men Type: BLOOD SPECIMENOrdering Facility: [facility] Address: [address] [place] [address] Result Comment: Anu mated Glomerular Filtration Rate (eGFR) is calculated using the 2020 CKD-EPI creatinine equation. This equation utilizes serum creatinine, sex, and age as parameters. The creatinine assay has traceable calibration to isotope dilution-mass spectrometry. Refer to KDIGO guidelines for clinical interpretation. In patients with unstable renal function, e.g. those with acute kidney injury, the eGFR may not accurately reflect actual GFR. Performed By: #### 2 4362-6 ####[facility]ORATORYCLIA [id number] [address] [place] Glucose [Mass/Vol] 319 mg/dL High 74-99 [facility] Comment on above: Order Comment: Speci men Type: BLOOD SPECIMENOrdering Facility: [facility] Address: [address] [place] [address] Result Comment: The [place] Diabetes Association (ADA) provides guidance for cutoff values for fasting glucose and random glucose. The ADA defines fasting as no caloric intake for at least 8 hours. Fasting plasma glucose results between 100 to 125 mg/dL indicate increased risk for diabetes (prediabetes). Fasting plasma glucose results greater than or equal to 126 mg/dL meet the criteria for diagnosis of diabetes. In the absence of unequivocal hyperglycemia, results should be confirmed by repeat testing. In a patient with classic symptoms of hyperglycemia or hyperglycemic crisis, random plasma glucose results greater than or equal to 200 mg/dL meet the criteria for diagnosis of diabetes. Reference: Standards of Medical Care in Diabetes 2016, [place] [employer] Association. Diabetes Care. 2016.39(Suppl 1). Performed By: #### 2 4362-6 ####[facility] LABORATORYCLIA [id number] [place] [address] [place] Phosphate [Mass/Vol] 3.1 mg/dL Normal 2.7-4.8 [facility] Comment on above: Order Comment: Speci men Type: BLOOD SPECIMENOrdering Facility: [facility] Address: [address] [place] [address] Performed By: #### 2 4362-6 ####[facility]ORATORYCLIA [id number] [place] [address] [place] Potassium [Moles/Vol] 5.2 mmol/L High 3.7-5.1 [facility] Comment on above: Order Comment: Echoi keny Type: BLOOD SPECIMENOrdering Facility: [facility] Address: [address] [address] Performed By: #### 2 4362-6 ####[facility] LABORATORYCLIA [id number] [place] [address] [place] Sodium [Moles/Vol] 132 mmol/L Low 136-144 [facility] Comment on above: Order Comment: Ecohi men Type: BLOOD SPECIMENOrdering Facility: [facility] Address: [address] [address] Performed By: #### 2 4362-6 ####[facility]ORATORYCLIA [id number] [place] [address] [place] Urea nitrogen [Mass/Vol] 42 mg/dL High 9-24 [facility] Comment on above: Order Comment: Speci men Type: BLOOD SPECIMENOrdering Facility: [facility] Address: [address] [place] [address] Performed By: #### 2 4362-6 ####[facility]ORATORYCLIA [id number] [address] Urinalysis complete panel (U )on 07-23-2021 Bilirubin Ql (U) Negative Normal Negative [facility] Comment on above: Order Comment: Speci men Type: URINE SPECIMENOrdering Facility: [facility] Address: [address] [place] [address] Performed By: #### 2 4356-8 ####[facility]ORATORYCLIA [id number] [address] Clarity (Unsp spec) Turbid Abnormal Clear [facility] Comment on above: Order Comment: Speci men Type: URINE SPECIMENOrdering Facility: [facility] Address: [address] [place] [address] Performed By: #### 2 4356-8 ####[facility]ORATORYCLIA [id number] [address] Color (U) Yellow Normal yellow [facility] Comment on above: Order Comment: Speci men Type: URINE SPECIMENOrdering Facility: [facility] Address: [address] [place] [address] Performed By: #### 2 4356-8 ####[facility]ORATORYCLIA [id number] [address] Glucose Test strip (U) [Mass/Vol] Trace Abnormal Negative [facility] Comment on above: Order Comment: Speci men Type: URINE SPECIMENOrdering Facility: [facility] Address: [address] [place] [address] Performed By: #### 2 4356-8 ####[facility]ORATORYCLIA [id number] [place] [address] Hemoglobin Ql (U) Negative Normal Negative [facility] Comment on above: Order Comment: Speci men Type: URINE SPECIMENOrdering Facility: [facility] Address: [address] [place] [address] Performed By: #### 2 4356-8 ####[facility]ORATORYCLIA [id number] [address] [place] Ketones Ql (U) Negative Normal Negative [facility] Comment on above: Order Comment: Speci men Type: URINE SPECIMENOrdering Facility: [facility] Address: [address] [place] [address] Performed By: #### 2 4356-8 ####[facility]ORATORYCLIA [id number] [address] Leukocyte esterase Test strip Ql (U) Negative Normal Negative [facility] Comment on above: Order Comment: Speci men Type: URINE SPECIMENOrdering Facility: [facility] Address: [address] [place] [address] Performed By: #### 2 4356-8 ####[facility]ORATORYCLIA [id number] [address] Nitrite Ql (U) Negative Normal Negative [facility] Comment on above: Order Comment: Speci men Type: URINE SPECIMENOrdering Facility: [facility] Address: [address] [place] [address] Performed By: #### 2 4356-8 ####[facility]ATORYCLIA [id number] [address] [place] pH (U) 5.0 [pH] Normal 5.0-8.0 [facility] Comment on above: Order Comment: Speci men Type: URINE SPECIMENOrdering Facility: [facility] Address: [address] [place] [address] Performed By: #### 2 4356-8 ####[facility]ORATORYCLIA [id number] [place] [address] [place] Protein (U) [Mass/Vol] 1+ Abnormal Negative [facility] Comment on above: Order Comment: Speci men Type: URINE SPECIMENOrdering Facility: [facility] Address: [address] [place] [address] Performed By: #### 2 4356-8 ####[facility]ORATORYCLIA [id number] [place] [address] [place] RBC LM.HPF (Urine sed) [#/Area] 0-3 /HPF Normal 0-3 /HPF [facility] Comment on above: Order Comment: Speci men Type: URINE SPECIMENOrdering Facility: [facility] Address: [address] [place] [address] Performed By: #### 2 4356-8 ####[facility]ORATORYCLIA [id number] [address] STATES [facility] Specific gravity (U) [Rel density] 1.021 Normal 1.005-1.030 [facility] Comment on above: Order Comment: Speci men Type: URINE SPECIMENOrdering Facility: [facility] Address: [address] [place] [address] Performed By: #### 2 4356-8 ####[facility]ORATORYCLIA [id number] [address] Urobilinogen Ql (U) Normal Normal Negative [facility] Comment on above: Order Comment: Speci men Type: URINE SPECIMENOrdering Facility: [facility] Address: [address] [place] [address] Performed By: #### 2 4356-8 ####[facility]ORATORYCLIA [id number] [address] STATES [facility] WBC LM.HPF (Urine sed) [#/Area] 0-5 /HPF Normal 0-5 /HPF [facility] Comment on above: Order Comment: Speci men Type: URINE SPECIMENOrdering Facility: [facility] Address: [address] [place] [address] Performed By: #### 2 4356-8 ####[facility]ATORYCLIA [id number] [address] OF [facility] Vancomycin random [Mass/Vol] on 07-23-2021 Vancomycin [Mass/Vol] 21.0 ug/mL High 10.0-20.0 [facility] Comment on above: Order Comment: Speci men Type: BLOOD SPECIMENOrdering Facility: [facility] Address: [address] [place] [address] Result Comment: Refe rence ranges and high/low indicator flags are provided as general guidelines only. The treating physician must determine appropriate target levels/dosing based on the specific clinical situation. Performed By: #### 4 091-5 ####[facility]romodulationWEBSTER [facility] LABORATORYCLIA [id number] [address] [place] Basic metabolic 2000 panelon 07-22-2021 Anion gap [Moles/Vol] 10 mmol/L Normal 9-18 [facility] Comment on above: Order Comment: Speci men Type: BLOOD SPECIMENOrdering Facility: [facility] Address: [address] [place] [address] Performed By: #### 3 2355-0 #### [facility] CLIA [id number] [address] [place] Calcium [Mass/Vol] 8.5 mg/dL Normal 8.5-10.2 [facility] Comment on above: Order Comment: Speci men Type: BLOOD SPECIMENOrdering Facility: [facility] Address: [address] [place] [address] Performed By: #### 3 2355-0 #### [facility] CLIA [id number] [address] [place] Chloride [Moles/Vol] 100 mmol/L Normal 97-105 [facility] Comment on above: Order Comment: Speci men Type: BLOOD SPECIMENOrdering Facility: [facility] Address: [address] [place] [address] Performed By: #### 3 2355-0 #### [facility] CLIA [id number] [address] [place] CO2 [Moles/Vol] 27 mmol/L Normal 22-30 [facility] Comment on above: Order Comment: Speci men Type: BLOOD SPECIMENOrdering Facility: [facility] Address: [address] [place] [address] Performed By: #### 3 2355-0 #### [facility] CLIA [id number] [address] [place] Creatinine [Mass/Vol] 1.73 mg/dL High 0.73-1.22 [facility] Comment on above: Order Comment: Speci men Type: BLOOD SPECIMENOrdering Facility: [facility] Address: [address] [place] [address] Performed By: #### 3 2355-0 #### [facility] CLIA [id number] [address] ESTIMATED GLOMERULAR FILTRATION RATE 44 mL/min/1.73m??? Low >=60 [facility] Comment on above: Order Comment: Speci men Type: BLOOD SPECIMENOrdering Facility: [facility] Address: [address] [place] [address] Result Comment: Anu mated Glomerular Filtration Rate (eGFR) is calculated using the 2020 CKD-EPI creatinine equation. This equation utilizes serum creatinine, sex, and age as parameters. The creatinine assay has traceable calibration to isotope dilution-mass spectrometry. Refer to KDIGO guidelines for clinical interpretation. In patients with unstable renal function, e.g. those with acute kidney injury, the eGFR may not accurately reflect actual GFR. Performed By: #### 3 2355-0 #### [facility] CLIA [id number] [address] [place] Glucose [Mass/Vol] 118 mg/dL High 74-99 [facility] Comment on above: Order Comment: Speci men Type: BLOOD SPECIMENOrdering Facility: [facility] Address: [address] [place] [address] Result Comment: The [place] Diabetes Association (ADA) provides guidance for cutoff values for fasting glucose and random glucose. The ADA defines fasting as no caloric intake for at least 8 hours. Fasting plasma glucose results between 100 to 125 mg/dL indicate increased risk for diabetes (prediabetes). Fasting plasma glucose results greater than or equal to 126 mg/dL meet the criteria for diagnosis of diabetes. In the absence of unequivocal hyperglycemia, results should be confirmed by repeat testing. In a patient with classic symptoms of hyperglycemia or hyperglycemic crisis, random plasma glucose results greater than or equal to 200 mg/dL meet the criteria for diagnosis of diabetes. Reference: Standards of Medical Care in Diabetes 2016, [place] [employer]. Diabetes Care. 2016.39(Suppl 1). Performed By: #### 3 2355-0 #### [facility] CLIA [id number] [address] STATES OF [facility] Potassium [Moles/Vol] 5.0 mmol/L Normal 3.7-5.1 [facility] Comment on above: Order Comment: Speci men Type: BLOOD SPECIMENOrdering Facility: [facility] Address: [address] [place] [address] Performed By: #### 3 2355-0 #### [facility] CLIA [id number] [address] STATES OF [facility] Sodium [Moles/Vol] 137 mmol/L Normal 136-144 [facility] Comment on above: Order Comment: Echoi men Type: BLOOD SPECIMENOrdering Facility: [facility] Address: [address] [place] [address] Performed By: #### 3 2355-0 #### [facility] CLIA [id number] [address] STATES [facility] Urea nitrogen [Mass/Vol] 29 mg/dL High 9-24 [facility] Comment on above: Order Comment: Speci men Type: BLOOD SPECIMENOrdering Facility: [facility] Address: [address] [place] [address] Performed By: #### 3 2355-0 #### [facility] CLIA [id number] [address] [place] CBC panel Auto (Bld)on 07-22 Erythrocyte distribution width (RBC) [Ratio] 15.5 % High 11.5-15.0 [facility] Comment on above: Order Comment: Speci men Type: BLOOD SPECIMEN [facility] Address: [address] [place] [address] Performed By: #### 5 8410-2 #### [facility] CLIA [id number] [address] Hematocrit (Bld) [Volume fraction] 41.8 % Normal 39.0-51.0 [facility] Comment on above: Order Comment: Speci men Type: BLOOD SPECIMEN [facility] Address: [address] [place] [address] Performed By: #### 5 8410-2 #### [facility] CLIA [id number] [address] OF [facility] Hemoglobin (Bld) [Mass/Vol] 12.3 g/dL Low 13.0-17.0 [facility] Comment on above: Order Comment: Speci men Type: BLOOD SPECIMEN [facility] Address: [address] [place] [address] Performed By: #### 5 8410-2 #### [facility] CLIA [id number] [address] MCH (RBC) [Entitic mass] 28.3 pg Normal 26.0-34.0 [facility] Comment on above: Order Comment: Speci men Type: BLOOD SPECIMEN [facility] Address: [address] [place] [address] Performed By: #### 5 8410-2 #### [facility] CLIA [id number] [address] MCHC (RBC) [Mass/Vol] 29.4 g/dL Low 30.5-36.0 [facility] Comment on above: Order Comment: Speci men Type: BLOOD SPECIMEN [facility] Address: [address] [place] [address] Performed By: #### 5 8410-2 #### [facility] CLIA [id number] [address] MCV (RBC) [Entitic vol] 96.1 fL Normal 80.0-100.0 [facility] Comment on above: Order Comment: Speci men Type: BLOOD SPECIMEN [facility] Address: [address] [place] [address] Performed By: #### 5 8410-2 #### [facility] CLIA [id number] [address] [place] Nucleated RBC (Bld) [#/Vol] 10*3/uL Normal <0.01 [facility] Comment on above: Order Comment: Speci men Type: BLOOD SPECIMEN [facility] Address: [address] [place] [address] Performed By: #### 5 8410-2 #### [facility] CLIA [id number] [address] Platelet mean volume (Bld) [Entitic vol] 9.9 fL Normal 9.0-12.7 [facility] Comment on above: Order Comment: Speci men Type: BLOOD SPECIMEN [facility] Address: [address] [place] [address] Performed By: #### 5 8410-2 #### [facility] CLIA [id number] [address] Platelets (Bld) [#/Vol] 357 10*3/uL Normal 150-400 [facility] Comment on above: Order Comment: Speci men Type: BLOOD SPECIMEN [facility] Address: [address] [place] [address] Performed By: #### 5 8410-2 #### [facility] CLIA [id number] [address] [place] RBC (Bld) [#/Vol] 4.35 10*6/uL Normal 4.20-6.00 [facility] Comment on above: Order Comment: Speci men Type: BLOOD SPECIMEN [facility] Address: [address] [address] Performed By: #### 5 8410-2 #### [facility] CLIA [id number] [address] OF [facility] WBC (Bld) [#/Vol] 15.27 10*3/uL High 3.70-11.00 [facility] Comment on above: Order Comment: Speci men Type: BLOOD SPECIMEN [facility] Address: [address] [place] [address] Performed By: #### 5 8410-2 #### [facility] CLIA [id number] [address] Gas and Carbon monoxide pane l (BldV)on 07-22-2021 BASE DEFICIT, VENOUS -1 mmol/L Normal -2-0 [facility] Comment on above: Order Comment: Speci men Type: BLOOD SPECIMEN [facility] Address: [address] [place] [address] Performed By: #### 5 8410-2 #### [facility] CLIA [id number] [address] Body temperature 97.88 [degF] Normal [facility] Comment on above: Order Comment: Speci men Type: BLOOD SPECIMEN [facility] Address: [address] [place] [address] Performed By: #### 5 8410-2 #### [facility] CLIA [id number] [address] [place] CALCIUM IONIZED, PH CORRECTED 1.11 mmol/L Normal 1.08-1.30 [facility] Comment on above: Order Comment: Speci men Type: BLOOD SPECIMEN [facility] Address: [address] [place] [address] Performed By: #### 5 8410-2 #### [facility] CLIA [id number] [address] [place] Calcium.ionized (BldV) [Mass/Vol] 1.20 mmol/L Normal 1.08-1.30 [facility] Comment on above: Order Comment: Speci men Type: BLOOD SPECIMEN [facility] Address: [address] [place] [address] Performed By: #### 5 8410-2 #### [facility] CLIA [id number] [address] [place] Carboxyhemoglobin (BldV) [Mass fraction] 1.3 % Normal 0.0-2.0 [facility] Comment on above: Order Comment: Speci men Type: BLOOD SPECIMEN [facility] Address: [address] [place] [address] Result Comment: Carb oxyhemoglobin Reference Range for Smokers: 2.0-8.0% Performed By: #### 5 8410-2 #### [facility] CLIA [id number] [address] [place] CO2 (BldV) [Partial pressure] 63 mm[Hg] High 42-55 [facility] Comment on above: Order Comment: Speci men Type: BLOOD SPECIMEN [facility] Address: [address] [place] [address] Performed By: #### 5 8410-2 #### [facility] CLIA [id number] [address] [place] CO2 [Moles/Vol] 26 mmol/L Normal 25-29 [facility] Comment on above: Order Comment: Speci men Type: BLOOD SPECIMEN [facility] Address: [address] [place] [address] Performed By: #### 5 8410-2 #### [facility] CLIA [id number] [address] [place] CO2 adjusted to patient's actual temperature (BldV) [Partial pressure] 62 mmHg High 42-55 [facility] Comment on above: Order Comment: Speci men Type: BLOOD SPECIMEN [facility] Address: [address] [place] [address] Performed By: #### 5 8410-2 #### [facility] CLIA [id number] [address] Glucose [Mass/Vol] 198 mg/dL High 60-105 [facility] Comment on above: Order Comment: Speci men Type: BLOOD SPECIMEN [facility] Address: [address] [place] [address] Performed By: #### 5 8410-2 #### [facility] CLIA [id number] [address] [place] HCO3 (Bld) [Moles/Vol] 27 mmol/L Normal 24-28 [facility] Comment on above: Order Comment: Speci men Type: BLOOD SPECIMEN [facility] Address: [address] [place] [address] Performed By: #### 5 8410-2 #### [facility] CLIA [id number] [address] [place] Hematocrit (Bld) [Volume fraction] 35.2 % Low 39.0-51.0 [facility] Comment on above: Order Comment: Speci men Type: BLOOD SPECIMEN [facility] Address: [address] [place] [address] Performed By: #### 5 8410-2 #### [facility] CLIA [id number] [address] [place] Hemoglobin (Bld) [Mass/Vol] 11.4 g/dL Low 13.0-17.0 [facility] Comment on above: Order Comment: Speci men Type: BLOOD SPECIMEN [facility] Address: [address] [place] [address] Performed By: #### 5 8410-2 #### [facility] CLIA [id number] [address] [place] LITERS 15 Liters/min Normal [facility] Comment on above: Order Comment: Speci men Type: BLOOD SPECIMEN [facility] Address: [address] [address] Performed By: #### 5 8410-2 #### [facility] CLIA [id number] [address] Methemoglobin (Bld) [Mass fraction] % Normal 0.0-1.5 [facility] Comment on above: Order Comment: Speci men Type: BLOOD SPECIMEN [facility] Address: [address] [place] [address] Performed By: #### 5 8410-2 #### [facility] CLIA [id number] [address] O2 THERAPY Venti Mask Normal [facility] Comment on above: Order Comment: Speci men Type: BLOOD SPECIMEN [facility] Address: [address] [place] [address] Performed By: #### 5 8410-2 #### [facility] CLIA [id number] [address] [place] Oxygen (BldV) [Partial pressure] 57 mm[Hg] High 35-45 [facility] Comment on above: Order Comment: Speci men Type: BLOOD SPECIMEN [facility] Address: [address] [place] [address] Performed By: #### 5 8410-2 #### [facility] CLIA [id number] [address] Oxygen adjusted to patient's actual temperature (BldV) [Partial pressure] 56 mmHg High 35-45 [facility] Comment on above: Order Comment: Speci men Type: BLOOD SPECIMEN [facility] Address: [address] [address] Performed By: #### 5 8410-2 #### [facility] CLIA [id number] [address] Oxygen saturation in Blood 88 % High 60-85 [facility] [facility] Comment on above: Order Comment: Speci men Type: BLOOD SPECIMEN Ordering Facility: [facility] Address: [address] [place] [address] Performed By: #### 5 8410-2 #### [facility] CLIA [id number] [address] [place] Oxyhemoglobin (BldV) [Mass fraction] 86 % High 60-85 [facility] Comment on above: Order Comment: Speci men Type: BLOOD SPECIMEN Ordering Facility: [facility] Address: [address] [place] [address] Performed By: #### 5 8410-2 #### [facility] CLIA [id number] [address] [place] pH (BldV) 7.26 [pH] Low 7.32-7.42 [facility] Comment on above: Order Comment: Speci men Type: BLOOD SPECIMEN Ordering Facility: [facility] Address: [address] [place] [address] Performed By: #### 5 8410-2 #### [facility] CLIA [id number] [address] [place] pH adjusted to patient's actual temperature (BldV) 7.26 Low 7.32-7.42 [facility] Comment on above: Order Comment: Speci men Type: BLOOD SPECIMEN Ordering Facility: [facility] Address: [address] [place] [address] Performed By: #### 5 8410-2 #### [facility] CLIA [id number] 1 [place] [address] [place] Potassium [Moles/Vol] 4.9 mmol/L Normal 3.5-5.0 [facility] Comment on above: Order Comment: Speci men Type: BLOOD SPECIMEN Ordering Facility: [facility] Address: [address] [place] [address] Performed By: #### 5 8410-2 #### [facility] CLIA [id number] 1 [place] [address] [place] Sodium [Moles/Vol] 136 mmol/L Normal 136-144 [facility] Comment on above: Order Comment: Speci men Type: BLOOD SPECIMEN Ordering Facility: [facility] Address: [address] [place] [address] Performed By: #### 5 8410-2 #### [facility] CLIA [id number] 1 [place] [address] [place] Legionella Ag Ur Qlon 2021 Legionella sp Ag Ql (U) Negative Normal Negative A [facility] Comment on above: Order Comment: Speci men Type: URINE SPECIMENOrdering Facility: [facility] Address: [address] [place] [address] Performed By: #### 3 2781-7 ####[facility] [id number] [place] [address] [place] Magnesium SerPl-mCncon 07-22 Magnesium [Mass/Vol] 2.0 mg/dL Normal 1.7-2.3 [facility] Comment on above: Order Comment: Speci men Type: BLOOD SPECIMENOrdering Facility: [facility] Address: [address] [place] [address] Performed By: #### 3 2355-0 #### [facility] CLIA [id number] [address] [place] [address] [place] Phosphate SerPl-mCncon 07-22 Phosphate [Mass/Vol] 4.2 mg/dL Normal 2.7-4.8 [facility] Comment on above: Order Comment: Speci men Type: BLOOD SPECIMENOrdering Facility: [facility] Address: [address] [place] [address] Performed By: #### 3 2355-0 #### [facility] CLIA [id number] 1 [place] [address] [place] STREPTOCOCCUS PNEUMONIAE AGo n 07-22-2021 STREPTOCOCCUS PNEUMONIAE AG STREP PNEUMO AG RESULT: Negative for Streptococcus pneumoniae antigen. Presumptive negative for pneumococcal pneumonia, suggesting no current or recent pneumococcal infection. Infection due to S.pneumoniae cannot be ruled out since the antigen present in the sample may be below the detection limit of the test. Normal [facility] Comment on above: Performed By: #### 5 8410-2 #### [facility] CLIA [id number] [address] [place] ALLIED HEALTHon 07-21-2021 ALLIED HEALTH HNO ID: [id number] Author: RT Jasmeet(Kelle) Service: Radiology Author Type: Technologist Type: Allied Health Filed: 07/21/2021 12:07 PM Note Text: Radiology Service Progress Note DATE OF SERVICE: July 21, 2021 TIME: 12:07 PM PATIENT IDENTITY VERIFICATION COMPLETED USING TWO (2) STANDARD IDENTIFIERS: Name and Date of confirmed by patient verbally and Name and Date of confirmed by identification band. FALL SCREENING: Has the patient had 2 falls in the last year or 1 fall with injury or currently using an Ambulatory Assistive Device (Walker, Cane, Wheelchair, Crutches, etc.)? Emergency Room Patient: Screened in ED PATIENT GENDER DATA: Male PATIENT RELEVANT IMPLANT DATA REVIEWED: Not Applicable ALLERGIES: Reviewed and unchanged CONTRAST ALLERGY: NO. EXAM: CT -CONTRAST INDUCED NEPHROPATHY RISK FACTORS: Patient age > 60 years CREATININE: Creatinine Date Value Ref Range Status 07/21/2021 1.52 (H) 0.73 - 1.22 mg/dL Final Estimated Glomerular Filtration Rate Date Value Ref Range Status 07/21/2021 51 (L) >=60 mL/min/1.73m? Final Comment: Estimated Glomerular Filtration Rate (eGFR) is calculated using the 2020 CKD-EPI creatinine equation. This equation utilizes serum creatinine, sex, and age as parameters. The creatinine assay has traceable calibration to isotope dilution-mass spectrometry. Refer to KDIGO guidelines for clinical interpretation. In patients with unstable renal function, e.g. those with acute kidney injury, the eGFR may not accurately reflect actual GFR. P.O.C.T. RESULTS: POC done: Yes, See Lab Tab July 21, 2021 TREATMENT: No Hydration needed. PERIPHERAL IV DATA: Inpatient - refer to LDA documentation RADIOLOGY DEPARTMENT: CT; Exam(s) Completed: PE Study SIGNATURE: RT Jasmeet(R) PATIENT NAME: James Reyes DATE: July 21, 2021 TIME: 12:07 PM Normal [facility] Bacteria Bld Culton 07-22-19 Bacteria identified Cx Nom (Bld) CULTURE, BLOOD: No growth 5 days Normal [facility] Comment on above: Performed By: #### 6 00-7 #### [facility] CLIA [id number] [address] Bacteria identified Cx Nom (Bld) CULTURE, BLOOD: No growth 5 days Normal [facility] Comment on above: Performed By: #### 6 00-7 #### [facility] CLIA [id number] [address] CBC W Auto Differential pane l (Bld)on 07-21-2021 Basophils (Bld) [#/Vol] 0.04 10*3/uL Normal <0.11 [facility] Comment on above: Order Comment: Speci men Type: BLOOD SPECIMEN Ordering Facility: [facility] Address: [address] [place] [address] Performed By: #### 5 7021-8 #### [facility] CLIA [id number] [address] Basophils/100 WBC (Bld) 0.3 % Normal A [facility] Comment on above: Order Comment: Speci men Type: BLOOD SPECIMEN Ordering Facility: [facility] Address: [address] [place] [address] Performed By: #### 5 7021-8 #### [facility] CLIA [id number] [address] [place] [address] Differential cell count method Nom (Bld) Auto Normal [facility] Comment on above: Order Comment: Speci men Type: BLOOD SPECIMEN Ordering Facility: [facility] Address: [address] [place] [address] Performed By: #### 5 7021-8 #### [facility] CLIA [id number] [address] [place] Eosinophils (Bld) [#/Vol] 0.12 10*3/uL Normal <0.46 [facility] Comment on above: Order Comment: Speci men Type: BLOOD SPECIMEN Ordering Facility: [facility] Address: [address] [address] Performed By: #### 5 7021-8 #### [facility] CLIA [id number] [address] Eosinophils/100 WBC (Bld) 0.9 % Normal [facility] Comment on above: Order Comment: Speci men Type: BLOOD SPECIMEN Ordering Facility: [facility] Address: [address] [place] [address] Performed By: #### 5 7021-8 #### [facility] CLIA [id number] [address] Erythrocyte distribution width (RBC) [Ratio] 15.7 % High 11.5-15.0 [facility] Comment on above: Order Comment: Speci men Type: BLOOD SPECIMEN Ordering Facility: [facility] Address: [address] [place] [address] Performed By: #### 5 7021-8 #### [facility] CLIA [id number] [address] Hematocrit (Bld) [Volume fraction] 41.8 % Normal 39.0-51.0 [facility] Comment on above: Order Comment: Speci men Type: BLOOD SPECIMEN Ordering Facility: [facility] Address: [address] [place] [address] Performed By: #### 5 7021-8 #### [facility] CLIA [id number] [address] OF [facility] Hemoglobin (Bld) [Mass/Vol] 13.0 g/dL Normal 13.0-17.0 [facility] Comment on above: Order Comment: Speci men Type: BLOOD SPECIMEN Ordering Facility: [facility] Address: [address] [place] [address] Performed By: #### 5 7021-8 #### [facility] CLIA [id number] [address] IMMATURE GRAN % 0.5 % Normal [facility] Comment on above: Order Comment: Speci men Type: BLOOD SPECIMEN Ordering Facility: [facility] Address: [address] [place] [address] Performed By: #### 5 7021-8 #### [facility] CLIA [id number] [address] IMMATURE GRAN ABS 0.07 k/uL Normal <0.10 [facility] Comment on above: Order Comment: Speci men Type: BLOOD SPECIMEN Ordering Facility: [facility] Address: [address] [place] [address] Performed By: #### 5 7021-8 #### [facility] CLIA [id number] [address] Lymphocytes (Bld) [#/Vol] 0.64 10*3/uL Low 1.00-4.00 [facility] Comment on above: Order Comment: Speci men Type: BLOOD SPECIMEN Ordering Facility: [facility] Address: [address] [place] [address] Performed By: #### 5 7021-8 #### [facility] CLIA [id number] [address] Lymphocytes/100 WBC (Bld) 4.7 % Normal [facility] Comment on above: Order Comment: Speci men Type: BLOOD SPECIMEN Ordering Facility: [facility] Address: [address] [place] [address] Performed By: #### 5 7021-8 #### [facility] CLIA [id number] [address] MCH (RBC) [Entitic mass] 28.2 pg Normal 26.0-34.0 [facility] Comment on above: Order Comment: Speci men Type: BLOOD SPECIMEN Ordering Facility: [facility] Address: [address] [place] [address] Performed By: #### 5 7021-8 #### [facility] CLIA [id number] [address] MCHC (RBC) [Mass/Vol] 31.1 g/dL Normal 30.5-36.0 [facility] Comment on above: Order Comment: Speci men Type: BLOOD SPECIMEN Ordering Facility: [facility] Address: [address] [place] [address] Performed By: #### 5 7021-8 #### [facility] CLIA [id number] [address] MCV (RBC) [Entitic vol] 90.7 fL Normal 80.0-100.0 [facility] Comment on above: Order Comment: Speci men Type: BLOOD SPECIMEN Ordering Facility: [facility] Address: [address] [place] [address] Performed By: #### 5 7021-8 #### [facility] CLIA [id number] [address] OF [facility] Monocytes (Bld) [#/Vol] 0.92 10*3/uL High <0.87 [facility] Comment on above: Order Comment: Speci men Type: BLOOD SPECIMEN Ordering Facility: [facility] Address: [address] [place] [address] Performed By: #### 5 7021-8 #### [facility] CLIA [id number] [address] Monocytes/100 WBC (Bld) 6.7 % Normal [facility] Comment on above: Order Comment: Speci men Type: BLOOD SPECIMEN Ordering Facility: [facility] Address: [address] [place] [address] Performed By: #### 5 7021-8 #### [facility] CLIA [id number] [address] [place] Neutrophils (Bld) [#/Vol] 11.89 10*3/uL High 1.45-7.50 [facility] Comment on above: Order Comment: Speci men Type: BLOOD SPECIMEN Ordering Facility: [facility] Address: [address] [address] Performed By: #### 5 7021-8 #### [facility] CLIA [id number] [address] Neutrophils/100 WBC (Bld) 86.9 % Normal [facility] Comment on above: Order Comment: Speci men Type: BLOOD SPECIMEN Ordering Facility: [facility] Address: [address] [address] Performed By: #### 5 7021-8 #### [facility] CLIA [id number] [address] [place] Nucleated RBC (Bld) [#/Vol] 10*3/uL Normal <0.01 [facility] Comment on above: Order Comment: Speci men Type: BLOOD SPECIMEN Ordering Facility: [facility] Address: [address] [place] [address] Performed By: #### 5 7021-8 #### [facility] CLIA [id number] [address] [place] Nucleated RBC/100 WBC (Bld) [Ratio] 0.0 /100 WBC Normal [facility] Comment on above: Order Comment: Speci men Type: BLOOD SPECIMEN Ordering Facility: [facility] Address: [address] [place] [address] Performed By: #### 5 7021-8 #### [facility] CLIA [id number] [address] [place] Platelet mean volume (Bld) [Entitic vol] 10.1 fL Normal 9.0-12.7 [facility] Comment on above: Order Comment: Speci men Type: BLOOD SPECIMEN Ordering Facility: [facility] Address: [facility] [address] Performed By: #### 5 7021-8 #### [facility] CLIA [id number] [address] [place] Platelets (Bld) [#/Vol] 407 10*3/uL High 150-400 [facility] Comment on above: Order Comment: Crystal bustillo Type: BLOOD SPECIMEN Ordering Facility: [facility] Address: [address] [place] [address] Performed By: #### 5 7021-8 #### [facility] CLIA [id number] [address] OF [facility] RBC (Bld) [#/Vol] 4.61 10*6/uL Normal 4.20-6.00 [facility] Comment on above: Order Comment: Crystal bustillo Type: BLOOD SPECIMEN Ordering Facility: [facility] Address: [address] [place] [address] Performed By: #### 5 7021-8 #### [facility] CLIA [id number] [address] WBC (Bld) [#/Vol] 13.68 10*3/uL High 3.70-11.00 [facility] Comment on above: Order Comment: Crystal bustillo Type: BLOOD SPECIMEN Ordering Facility: [facility] Address: [address] [place] [address] Performed By: #### 5 7021-8 #### [facility] CLIA [id number] [address] CONSULTon 07-21-2021 CONSULT HNO ID: [id number] Author: Whitney Johnson DO Service: Critical Care Author Type: Resident Type: Consults Filed: 07/21/2021 3:36 PM Note Text: Attestation signed by Juanito Morgan MD at 07/21/2021 3:49 PM See my note documented separately. Juanito Morgan MD 3:49 PM July 21, 2021 CRITICAL CARE INITIAL CONSULT SERVICE DATE: 07/21/2021 SERVICE TIME: 2:02 PM REASON FOR CONSULT: Acute hypoxic respiratory failure REQUESTING PHYSICIAN: Dr. Darlin Hanna PRIMARY CARE PHYSICIAN: Chelle Troncoso MD Subjective Mr. Reyes is a 65 year old male with a past medical history of insulin-dependent type 2 diabetes, neuropathy, hypercholesterolemia, CAD status post CABG, MINERVA not on CPAP, COPD not on home oxygen who presents from [facility] for hypoxia per EMS was 80% on room air. Patient admits to chest pain and a cough for the past 2 weeks. On presentation to the emergency department, patient was hypoxic to 82% requiring nasal cannula up to a nonrebreather.. Patient initially hypoglycemic at 61 and received a D50 amp. Patient was also given morphine and Zofran for symptom control. Patient empirically covered with tobramycin and levofloxacin as well as vancomycin for likely pneumonia in the setting of a leukocytosis with left shift at 13.68. No evidence of anemia or thrombocytopenia. Metabolic panel displays an JESSIKA of 1.52 no other significant electrolyte abnormalities. BUN of 25. Initial troponin elevated at 34 however downtrending to 33 on repeat. Initial lactic within normal limits. PCO2 60.7. CT PE displays predominately atelectasis medial right upper lobe. Prominent atelectasis at the base and right middle lobe. Near-complete collapse of the right lower lobe. Scattered subsegmental atelectasis medial left upper lobe as well as lingula and at the left lung base. Underlying pneumonia in these areas is not excluded in the appropriate clinical setting.?Trace right-sided pleural effusion. Dilatation of the pulmonary outflow tract as can be seen with pulmonary artery hypertension. Mild dilatation ascending aorta measuring up to 4.3 cm in diameter. PAST MEDICAL HISTORY Diagnosis Date - Foot infection - Hypercholesterolemia - Neuropathy - Type II diabetes mellitus (HCC) PAST SURGICAL HISTORY Procedure Laterality Date - PAST SURGICAL HISTORY OF Cholecystectomy - PAST SURGICAL HISTORY OF Thyroid Tumor Removal - PAST SURGICAL HISTORY OF Left Foot FAMILY HISTORY Problem Relation Age of Onset - other (DM II) Father Social History Tobacco Use - Smoking status: Current Every Day Smoker Packs/day: 1.00 Types: Cigarettes - Smokeless tobacco: Never Used Substance Use Topics - Alcohol use: No - Drug use: No (Not in a hospital admission) Current Facility-Administered Medications Medication Dose Route Frequency - iv contrast (radiology procedure) INTRAVENOUS DIRECTED PRN - NaCl 0.9% iv flush bag 20 mL INTRAVENOUS PRN - levoFLOXacin iv piggyback 750 mg in D5W 150 mL (LEVAQUIN) 750 mg INTRAVENOUS DAILY - vancomycin 1.5 g in D5W 250 mL (VANCOCIN) 0.015 g/kg/dose INTRAVENOUS q 12 HR - vancomycin dosing and monitoring per pharmacy OTHER As Directed - tobramycin 620 mg in NaCl 0.9% 50 mL 620 mg INTRAVENOUS ONCE ALLERGIES Allergen Reactions - Penicillins Unknown - Teramycin [Oxytetra* Unknown COMPLETE REVIEW OF SYSTEMS: GENERAL: No weight loss, malaise or fevers HEENT: Negative for frequent or significant headaches, No changes in hearing or vision, no nose bleeds or other nasal problems NECK: Negative for lumps, goiter, pain and significant neck swelling RESPIRATORY: No for cough shortness of breath and history of COPD. Patient states he cannot lay flat to sleep and normally sits up. CARDIOVASCULAR: Negative for leg swelling, hypertension, CHF or palpitations GI: No nausea, vomiting, or diarrhea : No history of dysuria, frequency or incontinence MUSCULOSKELETAL: Negative for joint pain or swelling, back pain or muscle pain SKIN: Negative for lesions, rash, and itching PSYCH: Negative for sleep disturbance, mood disorder and recent psychosocial stressors HEMATOLOGY/LYMPHOLOGY: Negative for prolonged bleeding, bruising easily or swollen nodes ENDOCRINE: Negative for cold or heat intolerance, polyuria, polydipsia and goiter NEURO: No history of headaches, syncope, paralysis, seizures or tremors Objective PHYSICAL EXAM: GENERAL: Alert, no distress, cooperative SKIN: Skin color, texture, turgor normal. No rashes or lesions. HEAD/SINUSES: No significant findings EYES: PERRLA, EOMI EARS: External ears normal, canals clear NOSE: Nares normal. Septum midline. OROPHARYNX: Lips, mucosa, and tongue normal. Teeth and gums normal. Oropharynx normal. Dry mucous membr (more content not included)... Normal [facility] CONSULT PROGon 07-21-2021 CONSULT PROG HNO ID: [id number] Author: Nancy Gong RPh Service: Pharmacy Author Type: Pharmacist Type: Consult Progress Note Filed: 07/22/2021 2:50 PM Note Text: PHARMACY VANCOMYCIN DOSING NOTE Patient Name: James Reyes Admission Date: 07/21/2021 Date of Consult: 07/21/2021 Time of Consult: 1:12 PM Indication: Pneumonia Goal Range: 15-25 mcg/mL RECOMMENDATIONS/PLAN: Pharmacy consulted for vancomycin dosing for James Reyes, a 65 year old, male who is being treated with vancomycin for PNA. 1. Patient is currently ordered Vancomycin 1.5 g IV q12h. Today is day 1 of therapy. 2. No vancomycin level has been drawn for this dosing regimen. 3. The present dose of vancomycin is the recommended dosage for this patient at this time. Continue therapy as prescribed. No baseline renal function for this patient is available; monitor renal function closely to determine if an adjustment to vancomycin dosing is needed. 4. The next vancomycin level has been ordered for 07/23/21 @ 1230 (Completed) Prior to 5th dose given severity of infection and unknown renal baseline. 5. S. aureus nasal PCR swab ordered We will follow patient renal function, vancomycin levels and doses with you during the course of therapy. Additional recommendations will appear in follow up notes. If you have any questions, [place] [phone]. Addendum: July 22, 2021 2:47 PM Patient's SCr has increased overnight from 1.52 to 1.73. Unclear of patient's baseline SCr; however in Care Everywhere patient had a SCr of 1.68 on 05/06/2019. Additional values found were 1.12 on 12/27/17 and 0.74 on 11/03/17. Patient's documented urine output since midnight is 940 mL. Thefore, will obtain an earlier level to ensure patient not inappropriately accumulating in the setting of uptrending SCr. Therefore, will change the time of the level to 07/23/21 at 00:30 (prior to 1:30 AM dose). This will be prior to the 4th dose of vancomycin. -Nancy Gong RPh Age: [age] year old Allergies: ALLERGIES Allergen Reactions - Penicillins Unknown - Teramycin [Oxytetra* Unknown Last 3 Encounter Wt Readings: Date: Wt: 07/21/2021 106.6 kg (235 lb) 12/26/2016 90.7 kg (200 lb) Last 1 Encounter Ht Readings: Date: Ht: 07/21/2021 182.9 cm (6') Estimated Creatinine Clearance: 61.9 mL/min (A) (based on SCr of 1.52 mg/dL (H)). Temp (24hrs), Av.3 ?C (99.1 ?F), Min:37.3 ?C (99.1 ?F), Max:37.3 ?C (99.1 ?F) - Current Temp: 37.3 ?C (99.1 ?F) Labs BUN (mg/dL) Date Value 07/21/2021 25 (H) Creatinine (mg/dL) Date Value 07/21/2021 1.52 (H) WBC (k/uL) Date Value 07/21/2021 13.68 (H) Vancomycin Levels: No results found for: VESNA Moran, [facility] Normal [facility] CT CHEST W IVCON PEon 2021 CT CHEST W IVCON PE * * *Final Report* * * DATE OF EXAM: Jul 21 2021 12:06PM [facility] 0540 - CT CHEST W IVCON PE / PROCEDURE REASON: Shortness of breath * * * * Physician Interpretation * * * * EXAMINATION: CHEST CT WITH CONTRAST (PULMONARY EMBOLISM PROTOCOL) CLINICAL HISTORY: Shortness of breath, PE suspected, high pretest prob Technique: Spiral CT acquisition of the chest from the thoracic inlet to the upper abdomen following IV contrast. Axial 1 and 3 mm thick slices plus coronal and sagittal reformatted images. MQ: CTCP_5 Contrast: 100 mL Omnipaque [address] Radiation dose: Integrated Dose-length product (DLP) for this visit = 411 mGy*cm CT Dose Reduction Employed: Automated exposure control(AEC) and iterative recon Comparison: No relevant prior studies available. RESULT: Limitations: None. Evaluation for thromboembolic disease: - Right heart chambers: No thromboembolic disease. - Main pulmonary arteries: No thromboembolic disease. - Lobar pulmonary arteries: No thromboembolic disease. - Segmental pulmonary arteries: No thromboembolic disease. - Subsegmental pulmonary arteries: No thromboembolic disease. - Additional pulmonary artery findings: Dilated main pulmonary artery measuring up to 4.4 cm in diameter. Lines, tubes, and devices: None. Lungs/pleura: Right: Atelectasis and or consolidation medial aspect right upper lobe. 3.4 cm bulla right upper lobe. Atelectasis right middle lobe. Near complete collapse right lower lobe. Small left-sided pleural effusion Right mainstem, right upper lobe, right middle lobe, and right lower lobe bronchi are patent. Left: Atelectasis versus consolidation left lung base. Trace effusion. Atelectasis medial left upper lobe and in the lingula. Lower neck, lymph nodes, and mediastinum: Heart size normal. No pericardial effusion. Thoracic aorta is dilated in its ascending portion measuring up to 4.3 cm in diameter. The patient has had prior coronary artery bypass graft surgery. Scattered subcentimeter mediastinal lymph nodes. Bones and soft tissues: Prior median sternotomy. Nonunion of the median sternotomy. No significant additional findings. Upper abdomen: No significant additional findings. Flower Grader (topogram) images: No significant additional findings. IMPRESSION: 1. No CT evidence of pulmonary embolism. 2. Predominately atelectasis medial right upper lobe. Prominent atelectasis at the base and right middle lobe. Near-complete collapse of the right lower lobe. Scattered subsegmental atelectasis medial left upper lobe as well as lingula and at the left lung base. 3. Underlying pneumonia in these areas is not excluded in the appropriate clinical setting. 4. Trace right-sided pleural effusion. 5. Status post coronary artery bypass graft. 6. Dilatation of the pulmonary outflow tract as can be seen with pulmonary artery hypertension. 7. Mild dilatation ascending aorta measuring up to 4.3 cm in diameter. 8. Nonunion of median sternotomy defect. Assistant Mechanic: PSCKelly Transcribe Date/Time: Jul 21 2021 12:29P Dictated by : CHELLE CHILD MD This examination was interpreted and the report reviewed and electronically signed by: CHELLE CHILD MD on Jul 21 2021 12:41PM EST [id number] Normal [facility] Comprehensive metabolic 2000 panelon 07-21-2021 Albumin [Mass/Vol] 3.3 g/dL Low 3.9-4.9 [facility] Comment on above: Order Comment: Speci men Type: BLOOD SPECIMEN Ordering Facility: [facility] Address: [address] [address] Performed By: #### 5 8410-2 #### [facility] CLIA [id number] [address] ALP [Catalytic activity/Vol] 88 U/L Normal 38-113 [facility] Comment on above: Order Comment: Speci men Type: BLOOD SPECIMEN Ordering Facility: [facility] Address: [address] [place] [address] Performed By: #### 5 8410-2 #### [facility] CLIA [id number] [address] ALT With P-5'-P [Catalytic activity/Vol] 10 U/L Normal 10-54 [facility] Comment on above: Order Comment: Speci men Type: BLOOD SPECIMEN Ordering Facility: [facility] Address: [address] [place] [address] Performed By: #### 5 8410-2 #### [facility] CLIA [id number] [address] Anion gap [Moles/Vol] 12 mmol/L Normal 9-18 [facility] Comment on above: Order Comment: Speci men Type: BLOOD SPECIMEN Ordering Facility: [facility] Address: [address] [place] [address] Performed By: #### 5 8410-2 #### [facility] CLIA [id number] [address] [place] AST With P-5'-P [Catalytic activity/Vol] 10 U/L Low 14-40 [facility] Comment on above: Order Comment: Speci men Type: BLOOD SPECIMEN Ordering Facility: [facility] Address: [address] [place] [address] Performed By: #### 5 8410-2 #### [facility] CLIA [id number] [address] [place] Bilirubin [Mass/Vol] 0.3 mg/dL Normal 0.2-1.3 [facility] Comment on above: Order Comment: Speci men Type: BLOOD SPECIMEN Ordering Facility: [facility] Address: [facility] [address] Performed By: #### 5 8410-2 #### [facility] CLIA [id number] [address] [place] Calcium [Mass/Vol] 9.2 mg/dL Normal 8.5-10.2 [facility] Comment on above: Order Comment: Speci men Type: BLOOD SPECIMEN Ordering Facility: [facility] Address: [address] [place] [address] Performed By: #### 5 8410-2 #### [facility] CLIA [id number] 1 [place] [address] [place] Chloride [Moles/Vol] 101 mmol/L Normal 97-105 [facility] Comment on above: Order Comment: Speci men Type: BLOOD SPECIMEN Ordering Facility: [facility] Address: [address] [place] [address] Performed By: #### 5 8410-2 #### [facility] CLIA [id number] 1 [place] [address] [place] CO2 [Moles/Vol] 27 mmol/L Normal 22-30 [facility] Comment on above: Order Comment: Speci men Type: BLOOD SPECIMEN Ordering Facility: [facility] Address: [address] [place] [address] Performed By: #### 5 8410-2 #### [facility] CLIA [id number] 1 [place] [address] [place] Creatinine [Mass/Vol] 1.52 mg/dL High 0.73-1.22 [facility] Comment on above: Order Comment: Speci men Type: BLOOD SPECIMEN Ordering Facility: [facility] Address: [address] [place] [address] Performed By: #### 5 8410-2 #### [facility] CLIA [id number] 1 [place] [address] [place] ESTIMATED GLOMERULAR FILTRATION RATE 51 mL/min/1.73m??? Low >=60 [facility] Comment on above: Order Comment: Crystal bustillo Type: BLOOD SPECIMEN Ordering Facility: [facility] Address: [address] [place] [address] Result Comment: Anu mated Glomerular Filtration Rate (eGFR) is calculated using the 2020 CKD-EPI creatinine equation. This equation utilizes serum creatinine, sex, and age as parameters. The creatinine assay has traceable calibration to isotope dilution-mass spectrometry. Refer to KDIGO guidelines for clinical interpretation. In patients with unstable renal function, e.g. those with acute kidney injury, the eGFR may not accurately reflect actual GFR. Performed By: #### 5 8410-2 #### [facility] CLIA [id number] 1 [place] [address] [place] Glucose [Mass/Vol] 61 mg/dL Low 74-99 [facility] Comment on above: Order Comment: Crystal bustillo Type: BLOOD SPECIMEN Ordering Facility: [facility] Address: [address] [place] [address] Result Comment: The [place] Diabetes Association (ADA) provides guidance for cutoff values for fasting glucose and random glucose. The ADA defines fasting as no caloric intake for at least 8 hours. Fasting plasma glucose results between 100 to 125 mg/dL indicate increased risk for diabetes (prediabetes). Fasting plasma glucose results greater than or equal to 126 mg/dL meet the criteria for diagnosis of diabetes. In the absence of unequivocal hyperglycemia, results should be confirmed by repeat testing. In a patient with classic symptoms of hyperglycemia or hyperglycemic crisis, random plasma glucose results greater than or equal to 200 mg/dL meet the criteria for diagnosis of diabetes. Reference: Standards of Medical Care in Diabetes 2016, [place] Diabetes Association. Diabetes Care. 2016.39(Suppl 1). Performed By: #### 5 8410-2 #### [facility] CLIA [id number] 1 [place] [address] [place] Potassium [Moles/Vol] 4.5 mmol/L Normal 3.7-5.1 [facility] Comment on above: Order Comment: Speci men Type: BLOOD SPECIMEN Ordering Facility: [facility] Address: [address] [place] [address] Performed By: #### 5 8410-2 #### [facility] CLIA [id number] [address] Protein [Mass/Vol] 7.0 g/dL Normal 6.3-8.0 [facility] Comment on above: Order Comment: Speci men Type: BLOOD SPECIMEN Ordering Facility: [facility] Address: [address] [place] [address] Performed By: #### 5 8410-2 #### [facility] CLIA [id number] [address] Sodium [Moles/Vol] 140 mmol/L Normal 136-144 [facility] Comment on above: Order Comment: Speci men Type: BLOOD SPECIMEN Ordering Facility: [facility] Address: [address] [place] [address] Performed By: #### 5 8410-2 #### [facility] CLIA [id number] [address] [place] Urea nitrogen [Mass/Vol] 25 mg/dL High 9-24 [facility] Comment on above: Order Comment: Speci men Type: BLOOD SPECIMEN Ordering Facility: [facility] Address: [address] [place] [address] Performed By: #### 5 8410-2 #### [facility] CLIA [id number] [address] [place] ED NOTEon 07-21-2021 ED NOTE HNO ID: [id number] Author: Phil Graham RN Service: Emergency Medicine Author Type: Registered Nurse Type: ED Notes Filed: 07/21/2021 4:51 PM Note Text: Pt. Needed to be placed on 15L NRB after only satting 85% consistently on 50% venti mask. Pt. Also repositioned and sat up in bed. Provider notified. [facility] ED NOTE HNO ID: [id number] Author: Raza Gimenez RN Service: Emergency Medicine Author Type: Registered Nurse Type: ED Notes Filed: 07/21/2021 11:58 AM Note Text: Transported to [place]. [facility] ED NOTE HNO ID: [id number] Author: Maribell Salazar RN Service: Emergency Medicine Author Type: Registered Nurse Type: ED Notes Filed: 07/21/2021 9:50 AM Note Text: ED attending at bedside assessing pt [facility] ED NOTE HNO ID: [id number] Author: Maribell Salazar RN Service: Emergency Medicine Author Type: Registered Nurse Type: ED Notes Filed: 07/21/2021 9:34 AM Note Text: Patient's identity verified by patient stating name, Patient's identity verified by patient stating date, Patient's identity verified by hospital ID bracelet. Patient placed on magnetic tape typewriter operator, patient placed on non-invasive blood pressure monitor, patient placed on continuous pulse oximetry. Alarms set and on, patient tolerating monitoring. [facility] ED PROV NOTEon 07-21-2021 ED PROV NOTE HNO ID: [id number] Author: Darlin Hanna MD Service: Emergency Medicine Author Type: Physician Type: ED Provider Notes Filed: 07/21/2021 5:00 PM Note Text: ED Provider Note Patient Name: James Reyes : 1955 SERVICE DATE: 07/21/21 History Patient presents with: Shortness of Breath: Pt comes from with c/o hypoxia, per EMS pt had O2 @ 82% RA, pt reports cough x2 weeks, pt reports pain with coughing. Pt A/OX3 at this time. The patient is a 65-year-old male presenting today for complaint of cough and shortness of breath. Patient come from [facility]. He was complaining of having shortness of breath and the nurses are assessed him. They found his oxygen to be low and so they called EMS which brought him here. Per EMS his oxygen was 82% on room air. Patient states that he has not been feeling ill but has had a cough for several weeks. He is also complaining of pain to the right lower lateral side of his chest. He states that discharge today. Describes as sharp in nature without radiation. He denies any trauma to his chest. Denies runny nose or congestion. He denies fevers or chills. No recent travel hospitalizations surgeries or immobilizations. No previous history of any blood clots. He does ambulate on his own with a Rollator. He has a history of open heart surgery with triple bypass. He denies any pressure or tightness sensation to the central part of his chest. PAST MEDICAL HISTORY Diagnosis Date - Foot infection - Hypercholesterolemia - Neuropathy - Type II diabetes mellitus (HCC) PAST SURGICAL HISTORY Procedure Laterality Date - PAST SURGICAL HISTORY OF Cholecystectomy - PAST SURGICAL HISTORY OF Thyroid Tumor Removal - PAST SURGICAL HISTORY OF Left Foot FAMILY HISTORY Problem Relation Age of Onset - other (DM II) Father Social History Tobacco Use - Smoking status: Current Every Day Smoker Packs/day: 1.00 Types: Cigarettes - Smokeless tobacco: Never Used Substance and Sexual Activity - Alcohol use: No - Drug use: No - Sexual activity: Not on file ALLERGIES Allergen Reactions - Penicillins Unknown - Teramycin [Oxytetra* Unknown Review of Systems Constitutional: Negative for activity change, appetite change, chills, fatigue and fever. HENT: Negative for congestion, ear pain, rhinorrhea and sore throat. Respiratory: Positive for cough and shortness of breath. Negative for chest tightness, wheezing and stridor. Cardiovascular: Positive for chest pain. Negative for palpitations. Gastrointestinal: Negative for abdominal pain, diarrhea, nausea and vomiting. Genitourinary: Negative for dysuria, frequency and urgency. Musculoskeletal: Negative for arthralgias and myalgias. Skin: Negative for rash and wound. Neurological: Negative for dizziness and headaches. Psychiatric/Behavioral: Negative for self-injury and suicidal ideas. All other systems reviewed and are negative. Physical Exam Vitals BP Pulse Temp Temp src Resp SpO2 Weight Height 07/21/21 0933 07/21/21 0932 07/21/21 0932 -- 07/21/21 0932 07/21/21 0932 07/21/21 0932 07/21/21 0932 (!) 114/31 81 37.3 ?C (99.1 ?F) 15 (!) 82 % 106.6 kg (235 lb) 1.829 m (6') Physical Exam Vitals and nursing note reviewed. Constitutional: General: He is not in acute distress. Appearance: He is well-developed. HENT: Head: Normocephalic and atraumatic. Nose: Nose normal. Mouth/Throat: Mouth: Mucous membranes are moist. Eyes: Extraocular Movements: Extraocular movements intact. Pupils: Pupils are equal, round, and reactive to light. Cardiovascular: Rate and Rhythm: Normal rate and regular rhythm. Pulses: Normal pulses. Heart sounds: Normal heart sounds. No murmur heard. No friction rub. No gallop. Pulmonary: Effort: Pulmonary effort is normal. No accessory muscle usage or respiratory distress. Breath sounds: No stridor. Decreased breath sounds present. No wheezing, rhonchi or rales. Comments: Patient is giving me very poor inspiratory effort secondary to pain. He is splinting his breathing. Abdominal: General: Bowel sounds are normal. There is no distension. Palpations: Abdomen is soft. Tenderness: There is no abdominal tenderness. Musculoskeletal: General: Normal range of motion. Cervical back: Normal range of motion and neck supple. Right lower leg: No edema. Left lower leg: No edema. Skin: General: Skin is warm and dry. Neurological: General: No focal deficit present. Mental Status: He is alert and oriented to person, place, and time. GCS: GCS eye subscore is 4. GCS verbal subscore is 5. GCS motor subscore is 6. Psychiatric: Mood and Affect: Mood normal. Behavior: Behavior normal. Diagnostic Testing ED Labs Ordered and Reviewed VENOUS BLOOD GAS, ED-POC(AK) - Abnormal; Notable for the following components: Result Value Ref Range pCO2,Venous(POCT) 60.7 (*) 40.6 - 60.0 mmHg COHb,Venous(POCT) 2.3 (* (more content not included)... [facility] HIGH SENSITIVITY TROPONIN To n 07-21-2021 HIGH SENSITIVITY MEDARDO 34 ng/L High <12 [facility] Comment on above: Order Comment: Speci men Type: BLOOD SPECIMEN Ordering Facility: [facility] Address: [address], [place] [address] Result Comment: When assessing risk for acute coronary syndromes: In patients undergoing blood draw greater than or equal to 2 hours from symptom onset, with history of very low to moderate risk and non-ischemic ECG, an initial hs-Troponin T less than 12 ng/L AND a 1 hour delta hs-Troponin T less than 3 ng/L should be considered very low risk for 30 day MACE. Performed By: #### 5 8410-2 #### [facility] CLIA [id number] [address] HIGH SENSITIVITY MEDARDO 33 ng/L High <12 [facility] Comment on above: Order Comment: Crystal bustillo Type: BLOOD SPECIMENOrdering Facility: [facility] Address: [address] [place] [address] Result Comment: When assessing risk for acute coronary syndromes: In patients undergoing blood draw greater than or equal to 2 hours from symptom onset, with history of very low to moderate risk and non-ischemic ECG, an initial hs-Troponin T less than 12 ng/L AND a 1 hour delta hs-Troponin T less than 3 ng/L should be considered very low risk for 30 day MACE. Performed By: #### 9 4500-6 #### [facility] CLIA [id number] [address] [place] [address] HIGH SENSITIVITY MEDARDO 34 ng/L High <12 [facility] Comment on above: Order Comment: Speci men Type: BLOOD SPECIMENOrdering Facility: [facility] Address: [address] [place] [address] Result Comment: When assessing risk for acute coronary syndromes: In patients undergoing blood draw greater than or equal to 2 hours from symptom onset, with history of very low to moderate risk and non-ischemic ECG, an initial hs-Troponin T less than 12 ng/L AND a 1 hour delta hs-Troponin T less than 3 ng/L should be considered very low risk for 30 day MACE. Performed By: #### H STNT ####[facility] [id number] [address] [place] MRSA Spec Ql Culton 07-22-19 22 MRSA isol Org specific cx Ql (Unsp spec) CULTURE, MRSA/MSSA SCREEN: Negative for Staphylococcus aureus [facility] Comment on above: Performed By: #### 5 8410-2 #### [facility] CLIA [id number] [address] MRSA isol Org specific cx Ql (Unsp spec) CULTURE, MRSA/MSSA SCREEN: Negative for Staphylococcus aureus [facility] Comment on above: Performed By: #### 1 3317-3 #### [facility] CLIA [id number] [address] OF [facility] Magnesium SerPl-mCncon 07-21 Magnesium [Mass/Vol] 2.0 mg/dL Normal 1.7-2.3 [facility] Comment on above: Order Comment: Speci men Type: BLOOD SPECIMEN Ordering Facility: [facility] Address: [address] [place] [address] Performed By: #### 5 8410-2 #### [facility] CLIA [id number] [address] [place] [address] NT[facility]proBNP [facility]21 Natriuretic peptide.B prohormone N-Terminal [Mass/Vol] 872 pg/mL High <125 [facility] Comment on above: Order Comment: Speci men Type: BLOOD SPECIMEN Ordering Facility[facility] Address: [address] [place] [address] Performed By: #### 5 8410-2 #### [facility] CLIA [id number] [address] [place] [address] PROCALCITONIN (LAB)on 2021 Procalcitonin [Mass/Vol] 0.15 ng/mL High <0.09 [facility] Comment on above: Order Comment: Speci men Type: BLOOD SPECIMEN Ordering Facility: [facility] Address: [address] [place] [address] Result Comment: For a guided interpretation of test results, please visit the Change in Procalcitonin Calculator, [email or web address]. Performed By: #### 5 8410-2 #### [facility] CLIA [id number] [address] OF [facility] SARS-CoV-2 RNA Resp Ql JOAN+p robeon 07-21-2021 SARS-CoV-2 (COVID-19) RNA JOAN+probe Ql (Resp) COVID 19 RESULT: SARS-CoV-2 (Agent of COVID-19) Not Detected by RT-PCR or equivalent method. This test has been authorized by FDA under an Emergency Use Authorization (EUA). [facility] Comment on above: Performed By: #### 9 4500-6 #### [facility] CLIA [id number] 1 [place] [address] [place] Basic Metabolic Panelon 01-2 0-2020 Calcium [Mass/Vol] 9.3 mg/dL Normal 8.4-10.4 [facility] Comment on above: Performed By: #### B MP3, MG3, CK3, TROPN #### [facility] [address] [place] [address] Glucose [Mass/Vol] 82 mg/dL Normal 70-100 [facility] Comment on above: Performed By: #### B MP3, MG3, CK3, TROPN #### [facility] [address] [place] [address] Anion gap [Moles/Vol] 9 Normal [facility] Comment on above: Performed By: #### B MP3, MG3, CK3, TROPN #### [facility] [address] [place] [address] CO2 [Moles/Vol] 25 mmol/L Normal 22-30 [facility] Comment on above: Performed By: #### B MP3, MG3, CK3, TROPN #### [facility] [address] [place] [address] Creatinine [Mass/Vol] 1.65 mg/dL High 0.52-1.25 [facility] Comment on above: Performed By: #### B MP3, MG3, CK3, TROPN #### [facility] [address] [place] [address] GFR/1.73 sq M predicted among blacks MDRD (S/P/Bld) [Vol rate/Area] 51.4 mL/min/{1.73_m2} Normal >60 [facility] Comment on above: Performed By: #### B MP3, MG3, CK3, TROPN #### [facility] [address] [place] [address] GFR/1.73 sq M predicted among non-blacks MDRD (S/P/Bld) [Vol rate/Area] 42.4 mL/min/{1.73_m2} Normal >60 [facility] Comment on above: Result Comment: Sour ce- MDRD equation with creatinine calibration to IDMS(NKDEP) eGFR not recommended for drug dose adjustment Performed By: #### B MP3, MG3, CK3, TROPN #### [facility] [address] [place] [address] Urea nitrogen [Mass/Vol] 32 mg/dL High 7-20 [facility] Comment on above: Performed By: #### B MP3, MG3, CK3, TROPN #### [facility] [address] [place] [address] Potassium [Moles/Vol] 5.5 mmol/L High 3.5-5.1 [facility] Comment on above: Performed By: #### B MP3, MG3, CK3, TROPN #### [facility] [address] [place] [address] Chloride [Moles/Vol] 107 mmol/L Normal 98-107 [facility] Comment on above: Performed By: #### B MP3, MG3, CK3, TROPN #### [facility] [address] [place] [address] Sodium [Moles/Vol] 141 mmol/L Normal 135-145 [facility] Comment on above: Performed By: #### B MP3, MG3, CK3, TROPN #### [facility] [address] [place] [address] Basic Metabolic PanelOrdered By: Barry Guadalupe on 05-06-2019 Anion gap [Moles/Vol] 9 mmol/L [facility] Work Phone: Calcium [Mass/Vol] 9.3 mg/dL 8.4 - 10. 4 mg/dL [facility] Work Phone: Chloride [Moles/Vol] 107 mmol/L 98 - 10 7 mmol/L [facility] Work Phone: CO2 [Moles/Vol] 25 mmol/L 22 - 30 mmol/L [facility] Work Phone: [phone] Creatinine [Mass/Vol] 1.65 mg/dL High 0.52 - 1.25 mg/dL [facility] Work Phone: EGFR IF NonAfrican Bulgarian 42.4 mL/min >60 [facility] Work Phone: [phone] Comment on above: Source- MDRD equatio n with creatinine calibration to IDMS(NKDEP) eGFR not recommended for drug dose adjustment GFR/1.73 sq M.predicted among blacks MDRD (S/P/Bld) [Vol rate/Area] 51.4 mL/min/{1.73_m2} >60 [facility] Work Phone: [phone] Glucose [Mass/Vol] 82 mg/dL 70 - 100 mg/dL [facility] Work Phone: [phone] Interpretation and review of laboratory results Abnormal [facility] Work Phone: [phone] Potassium [Moles/Vol] 5.5 mmol/L High 3.5 - 5.1 mmol/L [facility] Work Phone: [phone] Sodium [Moles/Vol] 141 mmol/L 135 - 145 mmol/L [facility] Work Phone: [phone] Urea nitrogen [Mass/Vol] 32 mg/dL High 7 - 20 mg/dL [facility] Work Phone: CKon 05-06-2019 CK [Catalytic activity/Vol] 49 U/L Normal 30-170 [facility] Comment on above: Performed By: #### B MP3, MG3, CK3, TROPN #### [facility] [address] [address] CKOrdered By: Barry mart 05-06-2019 CK [Catalytic activity/Vol] 49 U/L 30 - 170 U/L [facility] Work Phone: Magnesiumon 05-06-2019 Magnesium [Mass/Vol] 2.3 mg/dL Normal 1.6-2.3 [facility] Comment on above: Performed By: #### B MP3, MG3, CK3, TROPN #### [facility] [address] [place] [address] MagnesiumOrdered By: Barry Guadalupe on 05-06-2019 Magnesium [Mass/Vol] 2.3 mg/dL 1.6 - 2 .3 mg/dL [email or web address] Work Phone: No Panel InformationOrdered By: Barry Guadalupe on 05-06-2019 Test Performed by [facility], [address] , [place] [address] [email or web address] Work Phone: Troponin Ion 05-06-2019 Troponin I.cardiac [Mass/Vol] ng/mL Normal 0.000-0.034 [facility] Comment on above: Result Comment: . Performed By: #### B MP3, MG3, CK3, TROPN #### [facility] [address] [place] [address] Troponin [id number] By: Yusra Guadalupe on 05-06-2019 Troponin I.cardiac [Mass/Vol] ng/mL 0 - 0.034 ng/mL [email or web address] Work Phone: Comment on above: . Test Performed by [facility], [address] , [place] [address] [email or web address] Work Phone: CR Knee 1 or 2 Views Bilater yolanda 05-01-2019 CR Knee 1 or 2 Views Bilateral Patient Name: JAMES REYES Diagnostic Radiology Exam Date/Time 05/01/2019 14:40:00 EST Exam CR Knee 1 or 2 Views Bilateral Ordering Physician MD LAI RYAN Accession Number [id number] CPT4 Codes 55377 () Reason For Exam bilateral knee pain Report Examination: Bilateral knees Clinical Indication: Pain Comparison: None Findings: Two view bilateral weightbearing radiographs. Two view right and left knee radiographs. Right knee: There is no gross evidence for fracture or subluxation. Bones are grossly normal anatomic alignment. Advanced narrowing of the femorotibial joint spaces, medial greater than lateral, with marginal osteophytosis. Advanced, asymmetric narrowing of the lateral patellofemoral joint space with marginal osteophytosis and subchondral sclerosis. No sizable joint effusion is appreciated. Left knee: There is no gross evidence for fracture or subluxation. Bones are grossly normal anatomic alignment. Advanced narrowing of the femorotibial joint spaces, medial greater than lateral, with marginal osteophytosis. Advanced, asymmetric narrowing of the lateral patellofemoral joint space with marginal osteophytosis and subchondral sclerosis. No sizable joint effusion is appreciated. Normal osseous mineralization. Impression: 1.\\X09\\Advanced narrowing of the right and left femorotibial joint spaces, medial greater than lateral. 2.\\X09\\Advanced, asymmetric narrowing of the lateral patellofemoral joint space. 3.\\X09\\No joint effusions are identified. Report Dictated on Final Dictating Physician: MD STEPHENSON JASON Signed Date and Time: 05/01/2019 3:50 pm Signed by: MD STEPHENSON JASON Transcribed Date and Time: 05/01/2019 3:52 Normal [facility] CR Knee Standing Bilateralon 05-01-2019 CR Knee Standing Bilateral Patient Name: JAMES REYES Diagnostic Radiology Exam Date/Time 05/01/2019 14:50:00 EST Exam CR Knee Standing AP Bilateral Ordering Physician MD LAI RYAN Accession Number [id number] CPT4 Codes 22267 () Reason For Exam bilateral knee pain Report Examination: Bilateral knees Clinical Indication: Pain Comparison: None Findings: Two view bilateral weightbearing radiographs. Two view right and left knee radiographs. Right knee: There is no gross evidence for fracture or subluxation. Bones are grossly normal anatomic alignment. Advanced narrowing of the femorotibial joint spaces, medial greater than lateral, with marginal osteophytosis. Advanced, asymmetric narrowing of the lateral patellofemoral joint space with marginal osteophytosis and subchondral sclerosis. No sizable joint effusion is appreciated. Left knee: There is no gross evidence for fracture or subluxation. Bones are grossly normal anatomic alignment. Advanced narrowing of the femorotibial joint spaces, medial greater than lateral, with marginal osteophytosis. Advanced, asymmetric narrowing of the lateral patellofemoral joint space with marginal osteophytosis and subchondral sclerosis. No sizable joint effusion is appreciated. Normal osseous mineralization. Impression: 1.\\X09\\Advanced narrowing of the right and left femorotibial joint spaces, medial greater than lateral. 2.\\X09\\Advanced, asymmetric narrowing of the lateral patellofemoral joint space. 3.\\X09\\No joint effusions are identified. Report Dictated on Final Dictating Physician: MD STEPHENSON JASON Signed Date and Time: 05/01/2019 3:50 pm Signed by: MD STEPHENSON JASON Transcribed Date and Time: 05/01/2019 3:52 Normal [facility] XR KNEE BILATERAL LIMITEDOrd ered By: Haydee Lai on 05-01-2019 Patient Name: JAMES REYES ---Diagnostic Radiology--- Exam Date/Time 05/01/2019 14:40:00 EST Exam CR Knee 1 or 2 Views Bilateral Ordering Physician MD LAI RYAN Accession Number [id number] CPT4 Codes 77555 () Reason For Exam bilateral knee pain Report Examination: Bilateral knees Clinical Indication: Pain Comparison: None Findings: Two view bilateral weightbearing radiographs. Two view right and left knee radiographs. Right knee: There is no gross evidence for fracture or subluxation. Bones are grossly normal anatomic alignment. Advanced narrowing of the femorotibial joint spaces, medial greater than lateral, with marginal osteophytosis. Advanced, asymmetric narrowing of the lateral patellofemoral joint space with marginal osteophytosis and subchondral sclerosis. No sizable joint effusion is appreciated. Left knee: There is no gross evidence for fracture or subluxation. Bones are grossly normal anatomic alignment. Advanced narrowing of the femorotibial joint spaces, medial greater than lateral, with marginal osteophytosis. Advanced, asymmetric narrowing of the lateral patellofemoral joint space with marginal osteophytosis and subchondral sclerosis. No sizable joint effusion is appreciated. Normal osseous mineralization. Impression: 1.Advanced narrowing of the right and left femorotibial joint spaces, medial greater than lateral. 2.Advanced, asymmetric narrowing of the lateral patellofemoral joint space. 3.No joint effusions are identified. Report Dictated on --- Final --- Dictating Physician: MD STEPHENSON JASON Signed Date and Time: 05/01/2019 3:50 pm Signed by: MD STEPHENSON JASON Transcribed Date and Time: 05/01/2019 3:52 [facility] Work Phone: [facility], [facility] Incoming Radiology Results From [facility] - 05/01/2019 3:52 PM EST Patient Name: JAMES REYES ---Diagnostic Radiology--- Exam Date/Time 05/01/2019 14:40:00 EST Exam CR Knee 1 or 2 Views Bilateral Ordering Physician MD LAI RYAN Accession Number [id number] CPT4 Codes 70076 () Reason For Exam bilateral knee pain Report Examination: Bilateral knees Clinical Indication: Pain Comparison: None Findings: Two view bilateral weightbearing radiographs. Two view right and left knee radiographs. Right knee: There is no gross evidence for fracture or subluxation. Bones are grossly normal anatomic alignment. Advanced narrowing of the femorotibial joint spaces, medial greater than lateral, with marginal osteophytosis. Advanced, asymmetric narrowing of the lateral patellofemoral joint space with marginal osteophytosis and subchondral sclerosis. No sizable joint effusion is appreciated. Left knee: There is no gross evidence for fracture or subluxation. Bones are grossly normal anatomic alignment. Advanced narrowing of the femorotibial joint spaces, medial greater than lateral, with marginal osteophytosis. Advanced, asymmetric narrowing of the lateral patellofemoral joint space with marginal osteophytosis and subchondral sclerosis. No sizable joint effusion is appreciated. Normal osseous mineralization. Impression: 1.Advanced narrowing of the right and left femorotibial joint spaces, medial greater than lateral. 2.Advanced, asymmetric narrowing of the lateral patellofemoral joint space. 3.No joint effusions are identified. Report Dictated on --- Final --- Dictating Physician: MD STEPHENSON JASON Signed Date and Time: 05/01/2019 3:50 pm Signed by: MD STEPHENSON JASON Transcribed Date and Time: 05/01/2019 3:52 [facility] Work Phone: XR Knee Bilateral StandingOr dered By: Haydee Lai on 05-01-2019 Patient Name: JAMES REYES ---Diagnostic Radiology--- Exam Date/Time 05/01/2019 14:50:00 EST Exam CR Knee Standing AP Bilateral Ordering Physician MD LAI RYAN Accession Number [id number] CPT4 Codes 36547 () Reason For Exam bilateral knee pain Report Examination: Bilateral knees Clinical Indication: Pain Comparison: None Findings: Two view bilateral weightbearing radiographs. Two view right and left knee radiographs. Right knee: There is no gross evidence for fracture or subluxation. Bones are grossly normal anatomic alignment. Advanced narrowing of the femorotibial joint spaces, medial greater than lateral, with marginal osteophytosis. Advanced, asymmetric narrowing of the lateral patellofemoral joint space with marginal osteophytosis and subchondral sclerosis. No sizable joint effusion is appreciated. Left knee: There is no gross evidence for fracture or subluxation. Bones are grossly normal anatomic alignment. Advanced narrowing of the femorotibial joint spaces, medial greater than lateral, with marginal osteophytosis. Advanced, asymmetric narrowing of the lateral patellofemoral joint space with marginal osteophytosis and subchondral sclerosis. No sizable joint effusion is appreciated. Normal osseous mineralization. Impression: 1.Advanced narrowing of the right and left femorotibial joint spaces, medial greater than lateral. 2.Advanced, asymmetric narrowing of the lateral patellofemoral joint space. 3.No joint effusions are identified. Report Dictated on --- Final --- Dictating Physician: MD STEPHENSON JASON Signed Date and Time: 05/01/2019 3:50 pm Signed by: MD STEPHENSON JASON Transcribed Date and Time: 05/01/2019 3:52 [facility] Work Phone: [facility], [facility] Incoming Radiology Results From [facility] - 05/01/2019 3:52 PM EST Patient Name: JAMES REYES ---Diagnostic Radiology--- Exam Date/Time 05/01/2019 14:50:00 EST Exam CR Knee Standing AP Bilateral Ordering Physician MD LAI RYAN Accession Number [id number] CPT4 Codes 75557 () Reason For Exam bilateral knee pain Report Examination: Bilateral knees Clinical Indication: Pain Comparison: None Findings: Two view bilateral weightbearing radiographs. Two view right and left knee radiographs. Right knee: There is no gross evidence for fracture or subluxation. Bones are grossly normal anatomic alignment. Advanced narrowing of the femorotibial joint spaces, medial greater than lateral, with marginal osteophytosis. Advanced, asymmetric narrowing of the lateral patellofemoral joint space with marginal osteophytosis and subchondral sclerosis. No sizable joint effusion is appreciated. Left knee: There is no gross evidence for fracture or subluxation. Bones are grossly normal anatomic alignment. Advanced narrowing of the femorotibial joint spaces, medial greater than lateral, with marginal osteophytosis. Advanced, asymmetric narrowing of the lateral patellofemoral joint space with marginal osteophytosis and subchondral sclerosis. No sizable joint effusion is appreciated. Normal osseous mineralization. Impression: 1.Advanced narrowing of the right and left femorotibial joint spaces, medial greater than lateral. 2.Advanced, asymmetric narrowing of the lateral patellofemoral joint space. 3.No joint effusions are identified. Report Dictated on --- Final --- Dictating Physician: MD STEPHENSON JASON Signed Date and Time: 05/01/2019 3:50 pm Signed by: MD STEPHENSON JASON Transcribed Date and Time: 05/01/2019 3:52 [facility] Work Phone: CR Shoulder 2+ Views Righton 09-06-2018 CR Shoulder 2+ Views Right Patient Name: JAMES REYES Diagnostic Radiology Exam Date/Time 09/06/2018 09:40:00 EDT Exam CR Shoulder 2+ Views Right Ordering Physician MD KOMAL, MELQUIADES Schmitz Accession Number [id number] CPT4 Codes 43118 () Reason For Exam right shoulder pain Report Indication: Right shoulder pain. Y, axial lateral and axial views of the right shoulder. Severe glenohumeral joint space narrowing. Prominent inferior marginal osteophytes. Acromioclavicular alignment is maintained. 1.8 x 1.2 x 1.8 cm sclerotic lesion in the proximal humerus may represent a bone island. 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 Report Dictated on Final Dictating Physician: MD KNIGHT LAURA Signed Date and Time: 09/06/2018 4:19 pm Signed by: MD KNIGHT LAURA Transcribed Date and Time: 09/06/2018 4:20 Normal [facility] CULTURE ANAEROBEon 8 CULTURE ANAEROBE CULTURE ANAEROBE --> Status: F No growth of anaerobes at 5 days. Normal [facility] Comment on above: Performed By: #### M G3, BMP3 ####The performing lab is in the report. CULT./ST. BACTERIAon 018 CULT./ST. BACTERIA CULT./ST. BACTERIA - -> Status: F Mixed skin tayler present. STAIN GRAM --> Status: F Few polymorphonuclear cells/lpf. No organisms seen. No organisms seen. Normal [facility] Comment on above: Performed By: #### M G3, BMP3 ####The performing lab is in the report. CULTURE MYCOBACTERIA Conc.on 11-28-2017 CULTURE MYCOBACTERIA Conc. CULTURE MYCOBACTERIA Conc. --> Status: F Test performed at [facility] No acid-fast bacilli isolated after 6 weeks incubation. No acid-fast bacilli isolated after 6 weeks incubation. [facility] Comment on above: Order Comment: or co llected Performed By: #### H EMDF, APTT, HA1C2 ####The performing lab is in the report. CULTURE FUNGUSon 11-06-2017 CULTURE FUNGUS CULTURE FUNGUS --> Status: F No fungus isolated after 21 days. [facility] Comment on above: Order Comment: or co llected Performed By: #### H EMDF, APTT, HA1C2 ####The performing lab is in the report. Basic Metabolic Panelon 10-16 Anion gap 3 molar conc 7 Normal [facility] Comment on above: Performed By: #### M G3, BMP3 ####The performing lab is in the report. Calcium mass conc 8.2 mg/dL Low 8.4-10.4 [facility] Comment on above: Performed By: #### Ap G3, BMP3 ####The performing lab is in the report. CO2 molar conc 29 mmol/L Normal 22-30 [facility] Comment on above: Performed By: #### Ap G3, BMP3 ####The performing lab is in the report. Glucose mass conc 174 mg/dL High 70-100 [facility] Comment on above: Performed By: #### Ap G3, BMP3 ####The performing lab is in the report. Urea nitrogen mass conc 12 mg/dL Normal 7-20 [facility] Comment on above: Performed By: #### Ap G3, BMP3 ####The performing lab is in the report. Creatinine mass conc 0.74 mg/dL Normal 0.52-1.25 [facility] Comment on above: Performed By: #### Ap G3, BMP3 ####The performing lab is in the report. GFR/1.73 sq M predicted among blacks MDRD vol rate/area (S/P/Bld) mL/min/{1.73_m2} Normal >60 [facility] Comment on above: Performed By: #### Ap G3, BMP3 ####The performing lab is in the report. GFR/1.73 sq M predicted among non-blacks MDRD vol rate/area (S/P/Bld) mL/min/{1.73_m2} Normal >60 [facility] Comment on above: Result Comment: Sour ce- MDRD equation with creatinine calibration to IDMS(NKDEP) eGFR not recommended for drug dose adjustment Performed By: #### Ap G3, BMP3 ####The performing lab is in the report. Potassium molar conc 3.5 mmol/L Normal 3.5-5.1 [facility] Comment on above: Performed By: #### Ap G3, BMP3 ####The performing lab is in the report. Chloride molar conc 105 mmol/L Normal 98-107 [facility] Comment on above: Performed By: #### Ap G3, BMP3 ####The performing lab is in the report. Sodium molar conc 141 mmol/L Normal 137-145 [facility] Comment on above: Performed By: #### M G3, BMP3 ####The performing lab is in the report. Hemogram w/ Autodiffon 11-03 Abs Baso Cnt 0.0 10*3/uL Normal 0.0-0.2 [facility] Comment on above: Performed By: #### M G3, BMP3 ####The performing lab is in the report. Abs Neutrophile Cnt 2.8 10*3/uL Normal 1.8-7.0 [facility] Comment on above: Performed By: #### M G3, BMP3 ####The performing lab is in the report. Basophils/100 WBC Auto (Bld) 1.0 % Normal 0.0-2.0 [facility] Comment on above: Performed By: #### M G3, BMP3 ####The performing lab is in the report. Eosinophils Auto #/vol (Bld) 0.4 10*3/uL Normal 0.0-0.5 [facility] Comment on above: Performed By: #### Ap G3, BMP3 ####The performing lab is in the report. Eosinophils/100 WBC Auto (Bld) 8.0 % High 1.0-6.0 [facility] Comment on above: Performed By: #### M G3, BMP3 ####The performing lab is in the report. Erythrocyte distribution width Auto Ratio (RBC) 16.9 % High 11.5-14.5 [facility] Comment on above: Performed By: #### Ap G3, BMP3 ####The performing lab is in the report. Granulocytes/100 WBC (Bld) 64.3 % Normal 40.0-80.0 [facility] Comment on above: Performed By: #### M G3, BMP3 ####The performing lab is in the report. Hematocrit Auto Volume Fraction (Bld) 22.5 % Low 40.0-52.0 [facility] Comment on above: Performed By: #### M G3, BMP3 ####The performing lab is in the report. Hemoglobin mass conc (Bld) 7.4 g/dL Low 13.0-18.0 [facility] Comment on above: Performed By: #### Ap G3, BMP3 ####The performing lab is in the report. Lymphocytes Auto #/vol (Bld) 0.7 10*3/uL Low 1.0-4.3 [facility] Comment on above: Performed By: #### pA G3, BMP3 ####The performing lab is in the report. Lymphocytes/100 WBC Auto (Bld) 15.6 % Low 20.0-40.0 [facility] Comment on above: Performed By: #### Ap G3, BMP3 ####The performing lab is in the report. MCH Auto Entitic mass (RBC) 28.0 pg Normal 26.0-34.0 [facility] Comment on above: Performed By: #### Ap G3, BMP3 ####The performing lab is in the report. MCHC Auto mass conc (RBC) 33.1 % Normal 32.0-36.0 [facility] Comment on above: Performed By: #### Ap G3, BMP3 ####The performing lab is in the report. MCV Auto Entitic volume (RBC) 84.8 fL Normal 80.0-98.0 [facility] Comment on above: Performed By: #### Ap G3, BMP3 ####The performing lab is in the report. Monocytes Auto #/vol (Bld) 0.5 10*3/uL Normal 0.0-0.8 [facility] Comment on above: Performed By: #### Ap G3, BMP3 ####The performing lab is in the report. Monocytes/100 WBC Auto (Bld) 11.1 % High 2.0-10.0 [facility] Comment on above: Performed By: #### Ap G3, BMP3 ####The performing lab is in the report. Platelet mean volume Auto Entitic volume (Bld) 8.2 fL Normal 7.4-10.4 [facility] Comment on above: Performed By: #### Ap G3, BMP3 ####The performing lab is in the report. Platelets Auto #/vol (Bld) 287 10*3/uL Normal 140-440 [facility] Comment on above: Performed By: #### Ap G3, BMP3 ####The performing lab is in the report. RBC Auto #/vol (Bld) 2.65 10*6/uL Low 4.40-5.90 [facility] Comment on above: Performed By: #### Ap G3, BMP3 ####The performing lab is in the report. WBC Auto #/vol (Bld) 4.4 10*3/uL Normal 3.6-10.7 [facility] Comment on above: Performed By: #### Ap G3, BMP3 ####The performing lab is in the report. Prothrombin Timeon 8 INR Coag RelTime (PPP) 1.0 Normal 0.9-1.1 [facility] Comment on above: Result Comment: Lux mmended Anticoagulant Therapy: SEE BELOW----- INR of 2.0 - 3.0 : - Prophylaxis of Venous Thrombosis (high-risk surgery) - Treatment of Venous Thrombosis - Treatment of Pulmonary Embolism (Includes tissue heart valves, Acute Myocardial Infarction to prevent systemic embolism, Valvular Heart Disease, and Atrial Fibrillation)----- INR of 2.5 - 3.5 : - Mechanical Prosthetic Valves (high risk) - If oral anticoagulant therapy is used to prevent Myocardial Infarction Performed By: #### Ap Sanchez, BMP3 ####The performing lab is in the report. Prothrombin time (PT) Coag time (PPP) 10.7 s Normal 9.0-12.0 [facility] Comment on above: Result Comment: . Performed By: #### Ap G3, BMP3 ####The performing lab is in the report. TS GELon 11-03-2017 TS GEL ABO Group: A Rh, Gel: POS Antibody Screen Gel: NEG Normal [facility] Comment on above: Performed By: #### Ap G3, BMP3 ####The performing lab is in the report. Basic Metabolic Panelon 10-15 Anion gap 3 molar conc 6 Normal [facility] Comment on above: Performed By: #### Ap G3, BMP3 ####The performing lab is in the report. Calcium mass conc 8.9 mg/dL Normal 8.4-10.4 [facility] Comment on above: Performed By: #### Ap G3, BMP3 ####The performing lab is in the report. CO2 molar conc 30 mmol/L Normal 22-30 [facility] Comment on above: Performed By: #### M G3, BMP3 ####The performing lab is in the report. Glucose mass conc 101 mg/dL High 70-100 [facility] Comment on above: Performed By: #### M G3, BMP3 ####The performing lab is in the report. Urea nitrogen mass conc 8 mg/dL Normal 7-20 [facility] Comment on above: Performed By: #### Ap G3, BMP3 ####The performing lab is in the report. Creatinine mass conc 0.62 mg/dL Normal 0.52-1.25 [facility] Comment on above: Performed By: #### Ap G3, BMP3 ####The performing lab is in the report. GFR/1.73 sq M predicted among blacks MDRD vol rate/area (S/P/Bld) mL/min/{1.73_m2} Normal >60 [facility] Comment on above: Performed By: #### Ap G3, BMP3 ####The performing lab is in the report. GFR/1.73 sq M predicted among non-blacks MDRD vol rate/area (S/P/Bld) mL/min/{1.73_m2} Normal >60 [facility] Comment on above: Result Comment: Sour ce- MDRD equation with creatinine calibration to IDMS(NKDEP) eGFR not recommended for drug dose adjustment Performed By: #### Ap G3, BMP3 ####The performing lab is in the report. Potassium molar conc 2.9 mmol/L Low 3.5-5.1 [facility] Comment on above: Performed By: #### Ap G3, BMP3 ####The performing lab is in the report. Chloride molar conc 100 mmol/L Normal 98-107 [facility] Comment on above: Performed By: #### M G3, BMP3 ####The performing lab is in the report. Sodium molar conc 137 mmol/L Normal 137-145 [facility] Comment on above: Performed By: #### Ap G3, BMP3 ####The performing lab is in the report. Glucose,Bedsideon 10-30-2017 Glucose mass conc 131 mg/dL High 70-100 [facility] Comment on above: Result Comment: Test performed by glucose meter. Results may be 10%-15% lowerthan serum/plasma values. (CLIA ID [id number]) Performed By: #### M G3, BMP3 ####The performing lab is in the report. Glucose mass conc 163 mg/dL High 70-100 [facility] Comment on above: Result Comment: Test performed by glucose meter. Results may be 10%-15% lowerthan serum/plasma values. (CLIA ID [id number]) Performed By: #### M G3, BMP3 ####The performing lab is in the report. Hemogram w/ Autodiffon 10-30 Abs Baso Cnt 0.0 10*3/uL Normal 0.0-0.2 [facility] Comment on above: Performed By: #### Ap G3, BMP3 ####The performing lab is in the report. Abs Neutrophile Cnt 2.1 10*3/uL Normal 1.8-7.0 [facility] Comment on above: Performed By: #### M G3, BMP3 ####The performing lab is in the report. Basophils/100 WBC Auto (Bld) 0.8 % Normal 0.0-2.0 [facility] Comment on above: Performed By: #### M G3, BMP3 ####The performing lab is in the report. Eosinophils Auto #/vol (Bld) 0.3 10*3/uL Normal 0.0-0.5 [facility] Comment on above: Performed By: #### M G3, BMP3 ####The performing lab is in the report. Eosinophils/100 WBC Auto (Bld) 8.5 % High 1.0-6.0 [facility] Comment on above: Performed By: #### M G3, BMP3 ####The performing lab is in the report. Erythrocyte distribution width Auto Ratio (RBC) 16.6 % High 11.5-14.5 [facility] Comment on above: Performed By: #### M G3, BMP3 ####The performing lab is in the report. Granulocytes/100 WBC (Bld) 60.6 % Normal 40.0-80.0 [facility] Comment on above: Performed By: #### Ap Sanchez, BMP3 ####The performing lab is in the report. Hematocrit Auto Volume Fraction (Bld) 23.9 % Low 40.0-52.0 [facility] Comment on above: Performed By: #### Ap Sanchez, BMP3 ####The performing lab is in the report. Hemoglobin mass conc (Bld) 8.0 g/dL Low 13.0-18.0 [facility] Comment on above: Performed By: ###Jose Sanchez, BMP3 ####The performing lab is in the report. Lymphocytes Auto #/vol (Bld) 0.6 10*3/uL Low 1.0-4.3 [facility] Comment on above: Performed By: ###Jose Sanchez, BMP3 ####The performing lab is in the report. Lymphocytes/100 WBC Auto (Bld) 17.4 % Low 20.0-40.0 [facility] Comment on above: Performed By: #### Ap Sanchez, BMP3 ####The performing lab is in the report. MCH Auto Entitic mass (RBC) 27.7 pg Normal 26.0-34.0 [facility] Comment on above: Performed By: #### Ap G3, BMP3 ####The performing lab is in the report. MCHC Auto mass conc (RBC) 33.3 % Normal 32.0-36.0 [facility] Comment on above: Performed By: #### Ap Sanchez, BMP3 ####The performing lab is in the report. MCV Auto Entitic volume (RBC) 83.4 fL Normal 80.0-98.0 [facility] Comment on above: Performed By: ###Jose Sanchez, BMP3 ####The performing lab is in the report. Monocytes Auto #/vol (Bld) 0.4 10*3/uL Normal 0.0-0.8 [facility] Comment on above: Performed By: ###Jose Sanchez, BMP3 ####The performing lab is in the report. Monocytes/100 WBC Auto (Bld) 12.7 % High 2.0-10.0 [facility] Comment on above: Performed By: #### Ap G3, BMP3 ####The performing lab is in the report. Platelet mean volume Auto Entitic volume (Bld) 8.2 fL Normal 7.4-10.4 [facility] Comment on above: Performed By: #### Ap G3, BMP3 ####The performing lab is in the report. Platelets Auto #/vol (Bld) 266 10*3/uL Normal 140-440 [facility] Comment on above: Performed By: #### M G3, BMP3 ####The performing lab is in the report. RBC Auto #/vol (Bld) 2.87 10*6/uL Low 4.40-5.90 [facility] Comment on above: Performed By: #### Ap G3, BMP3 ####The performing lab is in the report. WBC Auto #/vol (Bld) 3.5 10*3/uL Low 3.6-10.7 [facility] Comment on above: Performed By: #### Ap G3, BMP3 ####The performing lab is in the report. Magnesiumon 10-30-2017 Magnesium mass conc 1.6 mg/dL Normal 1.6-2.3 [facility] Comment on above: Performed By: #### Ap G3, BMP3 ####The performing lab is in the report. Phosphoruson 10-30-2017 Phosphate mass conc 3.1 mg/dL Normal 2.5-4.5 [facility] Comment on above: Performed By: #### Ap G3, BMP3 ####The performing lab is in the report. Basic Metabolic Panelon 10-15 Anion gap 3 molar conc 6 Normal [facility] Comment on above: Performed By: #### Ap G3, BMP3 ####The performing lab is in the report. Calcium mass conc 8.8 mg/dL Normal 8.4-10.4 [facility] Comment on above: Performed By: #### Ap G3, BMP3 ####The performing lab is in the report. CO2 molar conc 30 mmol/L Normal 22-30 [facility] Comment on above: Performed By: #### Ap G3, BMP3 ####The performing lab is in the report. Creatinine mass conc 0.65 mg/dL Normal 0.52-1.25 [facility] Comment on above: Performed By: #### M G3, BMP3 ####The performing lab is in the report. GFR/1.73 sq M predicted among blacks MDRD vol rate/area (S/P/Bld) mL/min/{1.73_m2} Normal >60 [facility] Comment on above: Performed By: #### Ap G3, BMP3 ####The performing lab is in the report. GFR/1.73 sq M predicted among non-blacks MDRD vol rate/area (S/P/Bld) mL/min/{1.73_m2} Normal >60 [facility] Comment on above: Result Comment: Sour ce- MDRD equation with creatinine calibration to IDMS(NKDEP) eGFR not recommended for drug dose adjustment Performed By: #### Ap G3, BMP3 ####The performing lab is in the report. Glucose mass conc 100 mg/dL Normal 70-100 [facility] Comment on above: Performed By: #### Ap G3, BMP3 ####The performing lab is in the report. Urea nitrogen mass conc 9 mg/dL Normal 7-20 [facility] Comment on above: Performed By: #### Ap G3, BMP3 ####The performing lab is in the report. Potassium molar conc 3.0 mmol/L Low 3.5-5.1 [facility] Comment on above: Performed By: #### Ap G3, BMP3 ####The performing lab is in the report. Sodium molar conc 135 mmol/L Low 137-145 [facility] Comment on above: Performed By: #### Ap G3, BMP3 ####The performing lab is in the report. Chloride molar conc 99 mmol/L Normal 98-107 [facility] Comment on above: Performed By: #### Ap G3, BMP3 ####The performing lab is in the report. CULTURE ANAEROBEon 8 CULTURE ANAEROBE CULTURE ANAEROBE --> Status: F No growth of anaerobes at 5 days. Normal [facility] Comment on above: Order Comment: ORor Performed By: #### M G3, BMP3 ####The performing lab is in the report. Glucose,Bedsideon 10-29-2017 Glucose mass conc 124 mg/dL High 70-100 [facility] Comment on above: Result Comment: Test performed by glucose meter. Results may be 10%-15% lowerthan serum/plasma values. (CLIA ID [id number]) Performed By: #### M G3, BMP3 ####The performing lab is in the report. Glucose mass conc 208 mg/dL High 70-100 [facility] Comment on above: Result Comment: Test performed by glucose meter. Results may be 10%-15% lowerthan serum/plasma values. (CLIA ID [id number]) Performed By: #### M G3, BMP3 ####The performing lab is in the report. Glucose mass conc 139 mg/dL High 70-100 [facility] Comment on above: Result Comment: Test performed by glucose meter. Results may be 10%-15% lowerthan serum/plasma values. (CLIA ID [id number]) Performed By: #### Ap G3, BMP3 ####The performing lab is in the report. Hemogram w/ Autodiffon 10-29 Abs Baso Cnt 0.0 10*3/uL Normal 0.0-0.2 [facility] Comment on above: Performed By: #### Ap G3, BMP3 ####The performing lab is in the report. Abs Neutrophile Cnt 2.4 10*3/uL Normal 1.8-7.0 [facility] Comment on above: Performed By: #### M G3, BMP3 ####The performing lab is in the report. Basophils/100 WBC Auto (Bld) 0.7 % Normal 0.0-2.0 [facility] Comment on above: Performed By: #### M G3, BMP3 ####The performing lab is in the report. Eosinophils Auto #/vol (Bld) 0.2 10*3/uL Normal 0.0-0.5 [facility] Comment on above: Performed By: #### Ap G3, BMP3 ####The performing lab is in the report. Eosinophils/100 WBC Auto (Bld) 6.1 % High 1.0-6.0 [facility] Comment on above: Performed By: #### Ap G3, BMP3 ####The performing lab is in the report. Erythrocyte distribution width Auto Ratio (RBC) 16.4 % High 11.5-14.5 [facility] Comment on above: Performed By: #### Ap G3, BMP3 ####The performing lab is in the report. Granulocytes/100 WBC (Bld) 65.0 % Normal 40.0-80.0 [facility] Comment on above: Performed By: #### Ap G3, BMP3 ####The performing lab is in the report. Hematocrit Auto Volume Fraction (Bld) 22.2 % Low 40.0-52.0 [facility] Comment on above: Performed By: #### Ap Sanchez, BMP3 ####The performing lab is in the report. Hemoglobin mass conc (Bld) 7.3 g/dL Low 13.0-18.0 [facility] Comment on above: Performed By: #### Ap Sanchez, BMP3 ####The performing lab is in the report. Lymphocytes Auto #/vol (Bld) 0.6 10*3/uL Low 1.0-4.3 [facility] Comment on above: Performed By: #### Ap G3, BMP3 ####The performing lab is in the report. Lymphocytes/100 WBC Auto (Bld) 16.6 % Low 20.0-40.0 [facility] Comment on above: Performed By: #### Ap G3, BMP3 ####The performing lab is in the report. MCH Auto Entitic mass (RBC) 27.6 pg Normal 26.0-34.0 [facility] Comment on above: Performed By: #### Ap G3, BMP3 ####The performing lab is in the report. MCHC Auto mass conc (RBC) 33.1 % Normal 32.0-36.0 [facility] Comment on above: Performed By: #### Ap G3, BMP3 ####The performing lab is in the report. MCV Auto Entitic volume (RBC) 83.4 fL Normal 80.0-98.0 [facility] Comment on above: Performed By: #### Ap G3, BMP3 ####The performing lab is in the report. Monocytes Auto #/vol (Bld) 0.4 10*3/uL Normal 0.0-0.8 [facility] Comment on above: Performed By: #### Ap G3, BMP3 ####The performing lab is in the report. Monocytes/100 WBC Auto (Bld) 11.6 % High 2.0-10.0 [facility] Comment on above: Performed By: #### Ap G3, BMP3 ####The performing lab is in the report. Platelet mean volume Auto Entitic volume (Bld) 8.3 fL Normal 7.4-10.4 [facility] Comment on above: Performed By: #### Ap Sanchez, BMP3 ####The performing lab is in the report. Platelets Auto #/vol (Bld) 251 10*3/uL Normal 140-440 [facility] Comment on above: Performed By: #### pA G3, BMP3 ####The performing lab is in the report. RBC Auto #/vol (Bld) 2.66 10*6/uL Low 4.40-5.90 [facility] Comment on above: Performed By: #### Ap G3, BMP3 ####The performing lab is in the report. WBC Auto #/vol (Bld) 3.7 10*3/uL Normal 3.6-10.7 [facility] Comment on above: Performed By: #### Ap G3, BMP3 ####The performing lab is in the report. Magnesiumon 10-29-2017 Magnesium mass conc 1.6 mg/dL Normal 1.6-2.3 [facility] Comment on above: Performed By: #### Ap G3, BMP3 ####The performing lab is in the report. Phosphoruson 10-29-2017 Phosphate mass conc 2.8 mg/dL Normal 2.5-4.5 [facility] Comment on above: Performed By: #### Ap G3, BMP3 ####The performing lab is in the report. Basic Metabolic Panelon 07- Calcium mass conc 8.9 mg/dL Normal 8.4-10.4 [facility] Comment on above: Performed By: #### M G3, BMP3 ####The performing lab is in the report. Anion gap 3 molar conc 6 Normal [facility] Comment on above: Performed By: #### M G3, BMP3 ####The performing lab is in the report. CO2 molar conc 31 mmol/L High 22-30 [facility] Comment on above: Performed By: #### M G3, BMP3 ####The performing lab is in the report. Creatinine mass conc 0.66 mg/dL Normal 0.52-1.25 [facility] Comment on above: Performed By: #### M G3, BMP3 ####The performing lab is in the report. GFR/1.73 sq M predicted among blacks MDRD vol rate/area (S/P/Bld) mL/min/{1.73_m2} Normal >60 [facility] Comment on above: Performed By: #### Ap G3, BMP3 ####The performing lab is in the report. GFR/1.73 sq M predicted among non-blacks MDRD vol rate/area (S/P/Bld) mL/min/{1.73_m2} Normal >60 [facility] Comment on above: Result Comment: Sour ce- MDRD equation with creatinine calibration to IDMS(NKDEP) eGFR not recommended for drug dose adjustment Performed By: #### M G3, BMP3 ####The performing lab is in the report. Glucose mass conc 105 mg/dL High 70-100 [facility] Comment on above: Performed By: #### M G3, BMP3 ####The performing lab is in the report. Urea nitrogen mass conc 11 mg/dL Normal 7-20 [facility] Comment on above: Performed By: #### M G3, BMP3 ####The performing lab is in the report. Chloride molar conc 101 mmol/L Normal 98-107 [facility] Comment on above: Performed By: #### M G3, BMP3 ####The performing lab is in the report. Potassium molar conc 3.4 mmol/L Low 3.5-5.1 [facility] Comment on above: Performed By: #### M G3, BMP3 ####The performing lab is in the report. Sodium molar conc 137 mmol/L Normal 137-145 [facility] Comment on above: Performed By: #### M G3, BMP3 ####The performing lab is in the report. Glucose,Bedsideon 10-28-2017 Glucose mass conc 135 mg/dL High 70-100 [facility] Comment on above: Result Comment: Test performed by glucose meter. Results may be 10%-15% lowerthan serum/plasma values. (CLIA ID [id number]) Performed By: #### M G3, BMP3 ####The performing lab is in the report. Glucose mass conc 145 mg/dL High 70-100 [facility] Comment on above: Result Comment: Test performed by glucose meter. Results may be 10%-15% lowerthan serum/plasma values. (CLIA ID [id number]) Performed By: #### M G3, BMP3 ####The performing lab is in the report. Glucose mass conc 133 mg/dL High 70-100 [facility] Comment on above: Result Comment: Test performed by glucose meter. Results may be 10%-15% lowerthan serum/plasma values. (CLIA ID [id number]) Performed By: #### M G3, BMP3 ####The performing lab is in the report. Glucose mass conc 149 mg/dL High 70-100 [facility] Comment on above: Result Comment: Test performed by glucose meter. Results may be 10%-15% lowerthan serum/plasma values. (CLIA ID [id number]) Performed By: #### M G3, BMP3 ####The performing lab is in the report. Hemogram w/ Autodiffon 10-28 Abs Baso Cnt 0.0 10*3/uL Normal 0.0-0.2 [facility] Comment on above: Performed By: #### M G3, BMP3 ####The performing lab is in the report. Abs Neutrophile Cnt 2.5 10*3/uL Normal 1.8-7.0 [facility] Comment on above: Performed By: #### Ap G3, BMP3 ####The performing lab is in the report. Basophils/100 WBC Auto (Bld) 0.7 % Normal 0.0-2.0 [facility] Comment on above: Performed By: #### Ap G3, BMP3 ####The performing lab is in the report. Eosinophils Auto #/vol (Bld) 0.2 10*3/uL Normal 0.0-0.5 [facility] Comment on above: Performed By: #### Ap G3, BMP3 ####The performing lab is in the report. Eosinophils/100 WBC Auto (Bld) 5.5 % Normal 1.0-6.0 [facility] Comment on above: Performed By: #### Ap G3, BMP3 ####The performing lab is in the report. Erythrocyte distribution width Auto Ratio (RBC) 16.1 % High 11.5-14.5 [facility] Comment on above: Performed By: #### Ap G3, BMP3 ####The performing lab is in the report. Granulocytes/100 WBC (Bld) 66.5 % Normal 40.0-80.0 [facility] Comment on above: Performed By: #### Ap G3, BMP3 ####The performing lab is in the report. Hematocrit Auto Volume Fraction (Bld) 21.9 % Low 40.0-52.0 [facility] Comment on above: Performed By: #### Ap G3, BMP3 ####The performing lab is in the report. Hemoglobin mass conc (Bld) 7.3 g/dL Low 13.0-18.0 [facility] Comment on above: Performed By: #### Ap G3, BMP3 ####The performing lab is in the report. Lymphocytes Auto #/vol (Bld) 0.6 10*3/uL Low 1.0-4.3 [facility] Comment on above: Performed By: #### Ap G3, BMP3 ####The performing lab is in the report. Lymphocytes/100 WBC Auto (Bld) 16.2 % Low 20.0-40.0 [facility] Comment on above: Performed By: #### Ap G3, BMP3 ####The performing lab is in the report. MCH Auto Entitic mass (RBC) 28.1 pg Normal 26.0-34.0 [facility] Comment on above: Performed By: #### M G3, BMP3 ####The performing lab is in the report. MCHC Auto mass conc (RBC) 33.2 % Normal 32.0-36.0 [facility] Comment on above: Performed By: #### Ap G3, BMP3 ####The performing lab is in the report. MCV Auto Entitic volume (RBC) 84.7 fL Normal 80.0-98.0 [facility] Comment on above: Performed By: #### Ap G3, BMP3 ####The performing lab is in the report. Monocytes Auto #/vol (Bld) 0.4 10*3/uL Normal 0.0-0.8 [facility] Comment on above: Performed By: #### Ap G3, BMP3 ####The performing lab is in the report. Monocytes/100 WBC Auto (Bld) 11.1 % High 2.0-10.0 [facility] Comment on above: Performed By: #### Ap G3, BMP3 ####The performing lab is in the report. Platelet mean volume Auto Entitic volume (Bld) 8.9 fL Normal 7.4-10.4 [facility] Comment on above: Performed By: #### Ap G3, BMP3 ####The performing lab is in the report. Platelets Auto #/vol (Bld) 226 10*3/uL Normal 140-440 [facility] Comment on above: Performed By: #### Ap G3, BMP3 ####The performing lab is in the report. RBC Auto #/vol (Bld) 2.59 10*6/uL Low 4.40-5.90 [facility] Comment on above: Performed By: #### Ap G3, BMP3 ####The performing lab is in the report. WBC Auto #/vol (Bld) 3.8 10*3/uL Normal 3.6-10.7 [facility] Comment on above: Performed By: #### M G3, BMP3 ####The performing lab is in the report. Magnesiumon 10-28-2017 Magnesium mass conc 1.6 mg/dL Normal 1.6-2.3 [facility] Comment on above: Performed By: #### M G3, BMP3 ####The performing lab is in the report. Phosphoruson 10-28-2017 Phosphate mass conc 2.8 mg/dL Normal 2.5-4.5 [facility] Comment on above: Performed By: #### M G3, BMP3 ####The performing lab is in the report. Basic Metabolic Panelon 10-15 Calcium mass conc 9.0 mg/dL Normal 8.4-10.4 [facility] Comment on above: Performed By: #### M G3, BMP3 ####The performing lab is in the report. Anion gap 3 molar conc 4 Normal [facility] Comment on above: Performed By: #### M G3, BMP3 ####The performing lab is in the report. CO2 molar conc 30 mmol/L Normal 22-30 [facility] Comment on above: Performed By: #### M G3, BMP3 ####The performing lab is in the report. Creatinine mass conc 0.68 mg/dL Normal 0.52-1.25 [facility] Comment on above: Performed By: #### M G3, BMP3 ####The performing lab is in the report. GFR/1.73 sq M predicted among blacks MDRD vol rate/area (S/P/Bld) mL/min/{1.73_m2} Normal >60 [facility] Comment on above: Performed By: #### M G3, BMP3 ####The performing lab is in the report. GFR/1.73 sq M predicted among non-blacks MDRD vol rate/area (S/P/Bld) mL/min/{1.73_m2} Normal >60 [facility] Comment on above: Result Comment: Sour ce- MDRD equation with creatinine calibration to IDMS(NKDEP) eGFR not recommended for drug dose adjustment Performed By: #### M G3, BMP3 ####The performing lab is in the report. Glucose mass conc 121 mg/dL High 70-100 [facility] Comment on above: Performed By: #### M G3, BMP3 ####The performing lab is in the report. Urea nitrogen mass conc 17 mg/dL Normal 7-20 [facility] Comment on above: Performed By: #### M G3, BMP3 ####The performing lab is in the report. Chloride molar conc 102 mmol/L Normal 98-107 [facility] Comment on above: Performed By: #### M G3, BMP3 ####The performing lab is in the report. Potassium molar conc 3.8 mmol/L Normal 3.5-5.1 [facility] Comment on above: Performed By: #### M G3, BMP3 ####The performing lab is in the report. Sodium molar conc 136 mmol/L Low 137-145 [facility] Comment on above: Performed By: #### M G3, BMP3 ####The performing lab is in the report. CULTURE AND STAIN - TISSUEon 10-27-2017 CULTURE AND STAIN - TISSUE CULTURE & STAIN - TISSUE --> Status: FMixed skin tayler present.STAIN GRAM --> Status: FModerate polymorphonuclear cells/lpf.No organisms seen.No organisms seen.1 Organism Pseudomonas aeruginosaFew 1 Organism Antib iotic Result Intrp Amikacin (MARTITA) <= 2 S Cefepime(MARTITA) = 2 S Ciprofloxacin(MARTITA) <= 0.25 S Gentamicin(MARTITA) <= 1 S Levofloxacin(MARTITA) = 0.25 S Meropenem(MARTITA) = 1 S Pip/Tazobactam(MARTITA) = 8 S Normal [facility] Comment on above: Order Comment: ORor Performed By: #### M G3, BMP3 ####The performing lab is in the report. Glucose,Bedsideon 10-27-2017 Glucose mass conc 122 mg/dL High 70-100 [facility] Comment on above: Result Comment: Test performed by glucose meter. Results may be 10%-15% lowerthan serum/plasma values. (CLIA ID [id number]) Performed By: #### M G3, BMP3 ####The performing lab is in the report. Glucose mass conc 119 mg/dL High 70-100 [facility] Comment on above: Result Comment: Test performed by glucose meter. Results may be 10%-15% lowerthan serum/plasma values. (CLIA ID [id number]) Performed By: #### M G3, BMP3 ####The performing lab is in the report. Glucose mass conc 149 mg/dL High 70-100 [facility] Comment on above: Result Comment: Test performed by glucose meter. Results may be 10%-15% lowerthan serum/plasma values. (CLIA ID [id number]) Performed By: #### M G3, BMP3 ####The performing lab is in the report. Glucose mass conc 171 mg/dL High 70-100 [facility] Comment on above: Result Comment: Test performed by glucose meter. Results may be 10%-15% lowerthan serum/plasma values. (CLIA ID [id number]) Performed By: #### M G3, BMP3 ####The performing lab is in the report. Hemogram w/ Autodiffon 10-27 Abs Baso Cnt 0.0 10*3/uL [facility] 0[facility]0-0.2 [facility] Comment on above: Performed By: #### M G3, BMP3 ####The performing lab is in the report. Abs Neutrophile Cnt 3.1 10*3/uL Normal 1.8-7.0 [facility] Comment on above: Performed By: #### M G3, BMP3 ####The performing lab is in the report. Basophils/100 WBC Auto (Bld) 0.7 % Normal 0.0-2.0 [facility] Comment on above: Performed By: #### M G3, BMP3 ####The performing lab is in the report. Eosinophils Auto #/vol (Bld) 0.3 10*3/uL Normal 0.0-0.5 [facility] Comment on above: Performed By: #### M G3, BMP3 ####The performing lab is in the report. Eosinophils/100 WBC Auto (Bld) 6.7 % High 1.0-6.0 [facility] Comment on above: Performed By: #### M G3, BMP3 ####The performing lab is in the report. Erythrocyte distribution width Auto Ratio (RBC) 16.3 % High 11.5-14.5 [facility] Comment on above: Performed By: #### Ap G3, BMP3 ####The performing lab is in the report. Granulocytes/100 WBC (Bld) 68.1 % Normal 40.0-80.0 [facility] Comment on above: Performed By: #### Ap G3, BMP3 ####The performing lab is in the report. Hematocrit Auto Volume Fraction (Bld) 23.0 % Low 40.0-52.0 [facility] Comment on above: Performed By: #### Ap G3, BMP3 ####The performing lab is in the report. Hemoglobin mass conc (Bld) 7.5 g/dL Low 13.0-18.0 [facility] Comment on above: Performed By: #### M G3, BMP3 ####The performing lab is in the report. Lymphocytes Auto #/vol (Bld) 0.7 10*3/uL Low 1.0-4.3 [facility] Comment on above: Performed By: #### M G3, BMP3 ####The performing lab is in the report. Lymphocytes/100 WBC Auto (Bld) 14.4 % Low 20.0-40.0 [facility] Comment on above: Performed By: #### Ap G3, BMP3 ####The performing lab is in the report. MCH Auto Entitic mass (RBC) 27.6 pg Normal 26.0-34.0 [facility] Comment on above: Performed By: #### Ap G3, BMP3 ####The performing lab is in the report. MCHC Auto mass conc (RBC) 32.6 % Normal 32.0-36.0 [facility] Comment on above: Performed By: #### Ap G3, BMP3 ####The performing lab is in the report. MCV Auto Entitic volume (RBC) 84.7 fL Normal 80.0-98.0 [facility] Comment on above: Performed By: #### Ap Sanchez, BMP3 ####The performing lab is in the report. Monocytes Auto #/vol (Bld) 0.5 10*3/uL Normal 0.0-0.8 [facility] Comment on above: Performed By: ###Jose Sanchez, BMP3 ####The performing lab is in the report. Monocytes/100 WBC Auto (Bld) 10.1 % High 2.0-10.0 [facility] Comment on above: Performed By: #### Ap G3, BMP3 ####The performing lab is in the report. Platelet mean volume Auto Entitic volume (Bld) 8.6 fL Normal 7.4-10.4 [facility] Comment on above: Performed By: #### Ap G3, BMP3 ####The performing lab is in the report. Platelets Auto #/vol (Bld) 211 10*3/uL Normal 140-440 [facility] Comment on above: Performed By: #### Ap G3, BMP3 ####The performing lab is in the report. RBC Auto #/vol (Bld) 2.72 10*6/uL Low 4.40-5.90 [facility] Comment on above: Performed By: #### Ap G3, BMP3 ####The performing lab is in the report. WBC Auto #/vol (Bld) 4.6 10*3/uL Normal 3.6-10.7 [facility] Comment on above: Performed By: #### M G3, BMP3 ####The performing lab is in the report. Magnesiumon 10-27-2017 Magnesium mass conc 1.6 mg/dL Normal 1.6-2.3 [facility] Comment on above: Performed By: #### M G3, BMP3 ####The performing lab is in the report. Phosphoruson 10-27-2017 Phosphate mass conc 2.8 mg/dL Normal 2.5-4.5 [facility] Comment on above: Performed By: #### Ap G3, BMP3 ####The performing lab is in the report. Basic Metabolic Panelon 10-15 Calcium mass conc 9.1 mg/dL Normal 8.4-10.4 [facility] Comment on above: Performed By: #### Ap G3, BMP3 ####The performing lab is in the report. Glucose mass conc 145 mg/dL High 70-100 [facility] Comment on above: Performed By: #### Ap G3, BMP3 ####The performing lab is in the report. Urea nitrogen mass conc 23 mg/dL High 7-20 [facility] Comment on above: Performed By: #### M G3, BMP3 ####The performing lab is in the report. Anion gap 3 molar conc 5 Normal [facility] Comment on above: Performed By: #### Ap G3, BMP3 ####The performing lab is in the report. CO2 molar conc 31 mmol/L High 22-30 [facility] Comment on above: Performed By: #### Ap G3, BMP3 ####The performing lab is in the report. Creatinine mass conc 0.75 mg/dL Normal 0.52-1.25 [facility] Comment on above: Performed By: #### M G3, BMP3 ####The performing lab is in the report. GFR/1.73 sq M predicted among blacks MDRD vol rate/area (S/P/Bld) mL/min/{1.73_m2} Normal >60 [facility] Comment on above: Performed By: #### M G3, BMP3 ####The performing lab is in the report. GFR/1.73 sq M predicted among non-blacks MDRD vol rate/area (S/P/Bld) mL/min/{1.73_m2} Normal >60 [facility] Comment on above: Result Comment: Sour ce- MDRD equation with creatinine calibration to IDMS(NKDEP) eGFR not recommended for drug dose adjustment Performed By: #### M G3, BMP3 ####The performing lab is in the report. Chloride molar conc 101 mmol/L Normal 98-107 [facility] Comment on above: Performed By: #### M G3, BMP3 ####The performing lab is in the report. Potassium molar conc 3.6 mmol/L Normal 3.5-5.1 [facility] Comment on above: Performed By: #### M G3, BMP3 ####The performing lab is in the report. Sodium molar conc 137 mmol/L Normal 137-145 [facility] Comment on above: Performed By: #### M G3, BMP3 ####The performing lab is in the report. Glucose,Bedsideon 10-26-2017 Glucose mass conc 135 mg/dL High 70-100 [facility] Comment on above: Result Comment: Test performed by glucose meter. Results may be 10%-15% lowerthan serum/plasma values. (CLIA ID [id number]) Performed By: #### M G3, BMP3 ####The performing lab is in the report. Glucose mass conc 166 mg/dL High 70-100 [facility] Comment on above: Result Comment: Test performed by glucose meter. Results may be 10%-15% lowerthan serum/plasma values. (CLIA ID [id number]) Performed By: #### M G3, BMP3 ####The performing lab is in the report. Glucose mass conc 105 mg/dL High 70-100 [facility] Comment on above: Result Comment: Test performed by glucose meter. Results may be 10%-15% lowerthan serum/plasma values. (CLIA ID [id number]) Performed By: #### M G3, BMP3 ####The performing lab is in the report. Hemogram w/ Autodiffon 10-26 Abs Baso Cnt 0.0 10*3/uL Normal 0.0-0.2 [facility] Comment on above: Performed By: #### M G3, BMP3 ####The performing lab is in the report. Abs Neutrophile Cnt 4.5 10*3/uL Normal 1.8-7.0 [facility] Comment on above: Performed By: #### M G3, BMP3 ####The performing lab is in the report. Basophils/100 WBC Auto (Bld) 0.5 % Normal 0.0-2.0 [facility] Comment on above: Performed By: #### Ap G3, BMP3 ####The performing lab is in the report. Eosinophils Auto #/vol (Bld) 0.3 10*3/uL Normal 0.0-0.5 [facility] Comment on above: Performed By: #### Ap G3, BMP3 ####The performing lab is in the report. Eosinophils/100 WBC Auto (Bld) 5.3 % Normal 1.0-6.0 [facility] Comment on above: Performed By: #### Ap G3, BMP3 ####The performing lab is in the report. Erythrocyte distribution width Auto Ratio (RBC) 16.5 % High 11.5-14.5 [facility] Comment on above: Performed By: #### Ap G3, BMP3 ####The performing lab is in the report. Granulocytes/100 WBC (Bld) 71.4 % Normal 40.0-80.0 [facility] Comment on above: Performed By: #### Ap G3, BMP3 ####The performing lab is in the report. Hematocrit Auto Volume Fraction (Bld) 23.1 % Low 40.0-52.0 [facility] Comment on above: Performed By: #### Ap G3, BMP3 ####The performing lab is in the report. Hemoglobin mass conc (Bld) 7.5 g/dL Low 13.0-18.0 [facility] Comment on above: Performed By: #### Ap G3, BMP3 ####The performing lab is in the report. Lymphocytes Auto #/vol (Bld) 0.7 10*3/uL Low 1.0-4.3 [facility] Comment on above: Performed By: #### Ap G3, BMP3 ####The performing lab is in the report. Lymphocytes/100 WBC Auto (Bld) 11.3 % Low 20.0-40.0 [facility] Comment on above: Performed By: #### Ap G3, BMP3 ####The performing lab is in the report. MCH Auto Entitic mass (RBC) 27.9 pg Normal 26.0-34.0 [facility] Comment on above: Performed By: #### Ap G3, BMP3 ####The performing lab is in the report. MCHC Auto mass conc (RBC) 32.4 % Normal 32.0-36.0 [facility] Comment on above: Performed By: #### Ap G3, BMP3 ####The performing lab is in the report. MCV Auto Entitic volume (RBC) 86.1 fL Normal 80.0-98.0 [facility] Comment on above: Performed By: #### Ap G3, BMP3 ####The performing lab is in the report. Monocytes Auto #/vol (Bld) 0.7 10*3/uL Normal 0.0-0.8 [facility] Comment on above: Performed By: #### Ap G3, BMP3 ####The performing lab is in the report. Monocytes/100 WBC Auto (Bld) 11.5 % High 2.0-10.0 [facility] Comment on above: Performed By: #### Ap G3, BMP3 ####The performing lab is in the report. Platelet mean volume Auto Entitic volume (Bld) 8.7 fL Normal 7.4-10.4 [facility] Comment on above: Performed By: #### Ap G3, BMP3 ####The performing lab is in the report. Platelets Auto #/vol (Bld) 218 10*3/uL Normal 140-440 [facility] Comment on above: Performed By: #### Ap G3, BMP3 ####The performing lab is in the report. RBC Auto #/vol (Bld) 2.68 10*6/uL Low 4.40-5.90 [facility] Comment on above: Performed By: #### Ap G3, BMP3 ####The performing lab is in the report. WBC Auto #/vol (Bld) 6.2 10*3/uL Normal 3.6-10.7 [facility] Comment on above: Performed By: #### M G3, BMP3 ####The performing lab is in the report. Magnesiumon 10-26-2017 Magnesium mass conc 1.7 mg/dL Normal 1.6-2.3 [facility] Comment on above: Performed By: #### M G3, BMP3 ####The performing lab is in the report. Phosphoruson 10-26-2017 Phosphate mass conc 2.6 mg/dL Normal 2.5-4.5 [facility] Comment on above: Performed By: #### Ap G3, BMP3 ####The performing lab is in the report. Basic Metabolic Panelon 10-15 Anion gap 3 molar conc 9 Normal [facility] Comment on above: Performed By: #### Ap G3, BMP3 ####The performing lab is in the report. Calcium mass conc 9.4 mg/dL Normal 8.4-10.4 [facility] Comment on above: Performed By: #### M G3, BMP3 ####The performing lab is in the report. CO2 molar conc 29 mmol/L Normal 22-30 [facility] Comment on above: Performed By: #### M G3, BMP3 ####The performing lab is in the report. Glucose mass conc 148 mg/dL High 70-100 [facility] Comment on above: Performed By: #### M G3, BMP3 ####The performing lab is in the report. Urea nitrogen mass conc 21 mg/dL High 7-20 [facility] Comment on above: Performed By: #### M G3, BMP3 ####The performing lab is in the report. Creatinine mass conc 0.83 mg/dL Normal 0.52-1.25 [facility] Comment on above: Performed By: #### M G3, BMP3 ####The performing lab is in the report. GFR/1.73 sq M predicted among blacks MDRD vol rate/area (S/P/Bld) mL/min/{1.73_m2} Normal >60 [facility] Comment on above: Performed By: #### M G3, BMP3 ####The performing lab is in the report. GFR/1.73 sq M predicted among non-blacks MDRD vol rate/area (S/P/Bld) mL/min/{1.73_m2} Normal >60 [facility] Comment on above: Result Comment: Sour ce- MDRD equation with creatinine calibration to IDMS(NKDEP) eGFR not recommended for drug dose adjustment Performed By: #### M G3, BMP3 ####The performing lab is in the report. Potassium molar conc 4.1 mmol/L Normal 3.5-5.1 [facility] Comment on above: Performed By: #### M G3, BMP3 ####The performing lab is in the report. Chloride molar conc 101 mmol/L Normal 98-107 [facility] Comment on above: Performed By: #### M G3, BMP3 ####The performing lab is in the report. Sodium molar conc 138 mmol/L Normal 137-145 [facility] Comment on above: Performed By: #### M G3, BMP3 ####The performing lab is in the report. CR Chest Portableon 10-26-19 CR Chest Portable Patient Name: JAMES REYES Diagnostic Radiology Exam Date/Time 10/25/2017 10:26:30 EDT Exam CR Chest Portable Ordering Physician JACQUES WADE Accession Number [id number] CPT4 Codes 13031 () Reason For Exam line repositioned Report CLINICAL INFORMATION: Line placement. Portable view of the chest at 1010 hours is provided and compared to a previous study dated October 24, 2017. FINDINGS: The left arm PICC line is now in good position (tip in the superior vena cava). The cardiac silhouette and mediastinum are otherwise unremarkable. The lungs are essentially clear. IMPRESSION: 1. The left arm PICC line now has its tip in the SVC. Report Dictated on Final Dictated: 10/25/2017 12:47 pm Dictating Physician: MD MCBRIDE JEFFREY Signed Date and Time: 10/25/2017 12:48 pm Signed by: MD MCBRIDE JEFFREY Transcribed Date and Time: 10/25/2017 12:47 Normal [facility] Glucose,Bedsideon 10-25-2017 Glucose mass conc 149 mg/dL High 70-100 [facility] Comment on above: Result Comment: Test performed by glucose meter. Results may be 10%-15% lowerthan serum/plasma values. (CLIA ID [id number]) Performed By: #### M G3, BMP3 ####The performing lab is in the report. Glucose mass conc 162 mg/dL High 70-100 [facility] Comment on above: Result Comment: Test performed by glucose meter. Results may be 10%-15% lowerthan serum/plasma values. (CLIA ID [id number]) Performed By: #### M G3, BMP3 ####The performing lab is in the report. Glucose mass conc 168 mg/dL High 70-100 [facility] Comment on above: Result Comment: Test performed by glucose meter. Results may be 10%-15% lowerthan serum/plasma values. (CLIA ID [id number]) Performed By: #### M G3, BMP3 ####The performing lab is in the report. Glucose mass conc 164 mg/dL High 70-100 [facility] Comment on above: Result Comment: Test performed by glucose meter. Results may be 10%-15% lowerthan serum/plasma values. (CLIA ID [id number]) Performed By: #### M G3, BMP3 ####The performing lab is in the report. Hemogram w/ Autodiffon 10-25 Abs Baso Cnt 0.0 10*3/uL Normal 0.0-0.2 [facility] Comment on above: Performed By: #### M G3, BMP3 ####The performing lab is in the report. Abs Neutrophile Cnt 7.5 10*3/uL High 1.8-7.0 [facility] Comment on above: Performed By: #### M G3, BMP3 ####The performing lab is in the report. Basophils/100 WBC Auto (Bld) 0.5 % Normal 0.0-2.0 [facility] Comment on above: Performed By: #### M G3, BMP3 ####The performing lab is in the report. Eosinophils Auto #/vol (Bld) 0.1 10*3/uL Normal 0.0-0.5 [facility] Comment on above: Performed By: #### M G3, BMP3 ####The performing lab is in the report. Eosinophils/100 WBC Auto (Bld) 0.8 % Low 1.0-6.0 [facility] Comment on above: Performed By: #### M G3, BMP3 ####The performing lab is in the report. Erythrocyte distribution width Auto Ratio (RBC) 16.2 % High 11.5-14.5 [facility] Comment on above: Performed By: #### Ap G3, BMP3 ####The performing lab is in the report. Granulocytes/100 WBC (Bld) 82.8 % High 40.0-80.0 [facility] Comment on above: Performed By: #### Ap G3, BMP3 ####The performing lab is in the report. Hematocrit Auto Volume Fraction (Bld) 26.7 % Low 40.0-52.0 [facility] Comment on above: Performed By: #### Ap G3, BMP3 ####The performing lab is in the report. Hemoglobin mass conc (Bld) 8.8 g/dL Low 13.0-18.0 [facility] Comment on above: Performed By: #### Ap G3, BMP3 ####The performing lab is in the report. Lymphocytes Auto #/vol (Bld) 0.5 10*3/uL Low 1.0-4.3 [facility] Comment on above: Performed By: #### M G3, BMP3 ####The performing lab is in the report. Lymphocytes/100 WBC Auto (Bld) 5.8 % Low 20.0-40.0 [facility] Comment on above: Performed By: #### M G3, BMP3 ####The performing lab is in the report. MCH Auto Entitic mass (RBC) 27.8 pg Normal 26.0-34.0 [facility] Comment on above: Performed By: #### Ap G3, BMP3 ####The performing lab is in the report. MCHC Auto mass conc (RBC) 33.1 % Normal 32.0-36.0 [facility] Comment on above: Performed By: #### M G3, BMP3 ####The performing lab is in the report. MCV Auto Entitic volume (RBC) 84.1 fL Normal 80.0-98.0 [facility] Comment on above: Performed By: #### Ap G3, BMP3 ####The performing lab is in the report. Monocytes Auto #/vol (Bld) 0.9 10*3/uL High 0.0-0.8 [facility] Comment on above: Performed By: #### Ap G3, BMP3 ####The performing lab is in the report. Monocytes/100 WBC Auto (Bld) 10.1 % High 2.0-10.0 [facility] Comment on above: Performed By: #### Ap G3, BMP3 ####The performing lab is in the report. Platelet mean volume Auto Entitic volume (Bld) 8.4 fL Normal 7.4-10.4 [facility] Comment on above: Performed By: #### Ap G3, BMP3 ####The performing lab is in the report. Platelets Auto #/vol (Bld) 250 10*3/uL Normal 140-440 [facility] Comment on above: Performed By: #### Ap G3, BMP3 ####The performing lab is in the report. RBC Auto #/vol (Bld) 3.17 10*6/uL Low 4.40-5.90 [facility] Comment on above: Performed By: #### Ap G3, BMP3 ####The performing lab is in the report. WBC Auto #/vol (Bld) 9.0 10*3/uL Normal 3.6-10.7 [facility] Comment on above: Performed By: #### Ap G3, BMP3 ####The performing lab is in the report. Magnesiumon 10-25-2017 Magnesium mass conc 1.7 mg/dL Normal 1.6-2.3 [facility] Comment on above: Performed By: #### Ap G3, BMP3 ####The performing lab is in the report. Phosphoruson 10-25-2017 Phosphate mass conc 3.1 mg/dL Normal 2.5-4.5 [facility] Comment on above: Performed By: #### Ap G3, BMP3 ####The performing lab is in the report. Procalcitoninon 10-25-2017 Protein mass conc g/dL Normal <0.10 [facility] Comment on above: Performed By: #### Ap G3, BMP3 ####The performing lab is in the report. Arterial Blood Gaseson 10-24 HCO3 molar conc (Bld) 27.9 mmol/L High 21.0-25.0 [facility] Comment on above: Performed By: #### Ap G3, BMP3 ####The performing lab is in the report. Hemoglobin mass conc (Bld) 9.3 g/dL Normal ScreenOnly [facility] Comment on above: Performed By: #### Ap Sanchez, BMP3 ####The performing lab is in the report. Oxygen ppres (BldA) 103.5 mm[Hg] High 80.0-100.0 [facility] Comment on above: Performed By: #### Ap G3, BMP3 ####The performing lab is in the report. Oxygen saturation in Blood 97.1 % Normal 95.0-100.0 [facility] Comment on above: Performed By: #### Ap G3, BMP3 ####The performing lab is in the report. pCO2 42.1 mm[Hg] Normal 35.0-45.0 [facility] Comment on above: Performed By: #### Ap G3, BMP3 ####The performing lab is in the report. pH (Bld) 7.439 Normal 7.350-7.450 [facility] Comment on above: Performed By: #### Ap G3, BMP3 ####The performing lab is in the report. Std Base Excess 3.4 mmol/L High -3.0-3.0 [facility] Comment on above: Performed By: ###Jose De Souza G3, BMP3 ####The performing lab is in the report. TCO2 29.2 mmol/L High 23.0-27.0 [facility] Comment on above: Performed By: #### Ap G3, BMP3 ####The performing lab is in the report. FIO2 4 L Normal [facility] Comment on above: Performed By: #### M G3, BMP3 ####The performing lab is in the report. Basic Metabolic Panelon 07- Anion gap 3 molar conc 7 Normal [facility] Comment on above: Performed By: #### Ap G3, BMP3 ####The performing lab is in the report. Calcium mass conc 9.2 mg/dL Normal 8.4-10.4 [facility] Comment on above: Performed By: #### Ap G3, BMP3 ####The performing lab is in the report. Chloride molar conc 102 mmol/L Normal 98-107 [facility] Comment on above: Performed By: #### Ap G3, BMP3 ####The performing lab is in the report. CO2 molar conc 29 mmol/L Normal 22-30 [facility] Comment on above: Performed By: #### Ap G3, BMP3 ####The performing lab is in the report. Creatinine mass conc 0.89 mg/dL Normal 0.52-1.25 [facility] Comment on above: Performed By: #### Ap G3, BMP3 ####The performing lab is in the report. GFR/1.73 sq M predicted among blacks MDRD vol rate/area (S/P/Bld) mL/min/{1.73_m2} Normal >60 [facility] Comment on above: Performed By: #### Ap G3, BMP3 ####The performing lab is in the report. GFR/1.73 sq M predicted among non-blacks MDRD vol rate/area (S/P/Bld) mL/min/{1.73_m2} Normal >60 [facility] Comment on above: Result Comment: Sour ce- MDRD equation with creatinine calibration to IDMS(NKDEP) eGFR not recommended for drug dose adjustment Performed By: #### M G3, BMP3 ####The performing lab is in the report. Glucose mass conc 110 mg/dL High 70-100 [facility] Comment on above: Performed By: #### M G3, BMP3 ####The performing lab is in the report. Potassium molar conc 3.8 mmol/L Normal 3.5-5.1 [facility] Comment on above: Performed By: #### M G3, BMP3 ####The performing lab is in the report. Sodium molar conc 137 mmol/L Normal 137-145 [facility] Comment on above: Result Comment: Down time Data Recovery: Caution when interpreting results with collectiondate & time. Performed By: #### M G3, BMP3 ####The performing lab is in the report. Urea nitrogen mass conc 26 mg/dL High 7-20 [facility] Comment on above: Performed By: #### M G3, BMP3 ####The performing lab is in the report. CR Chest Portableon 10-25-19 CR Chest Portable Patient Name: JAMES REYES Diagnostic Radiology Exam Date/Time 10/24/2017 18:18:27 EDT Exam CR Chest Portable Ordering Physician ERIC DENNEY D.O. Accession Number [id number] CPT4 Codes 25717 () Reason For Exam acute hypoxic respiratory failure Report PORTABLE CHEST CLINICAL INDICATION: Respiratory failure. Hypoxia. COMPARISON: 10/19/2017. TECHNIQUE: A single frontal view of thorax was obtained and reviewed. IMPRESSION: 1. Lines/ tubes/ devices: Left-sided PICC line tip is redirected cephalad toward the right IJ vein. Repositioning is suggested. 2. Lungs and Pleura: There is incomplete inspiration with crowded lung markings. No infiltrate or mass. No pneumothorax or pleural effusion. 3. Heart and mediastinum: Normal cardiomediastinal margin. 4. Bones: Normal osseous structures. Report Dictated on Final Dictated: 10/24/2017 7:34 pm Dictating Physician: TANMAY LEO DO, I Signed Date and Time: 10/24/2017 7:36 pm Signed by: TANMAY LEO DO, I Transcribed Date and Time: 10/24/2017 7:34 Normal [facility] Glucose,Bedsideon 10-24-2017 Glucose mass conc 160 mg/dL High 70-100 [facility] Comment on above: Result Comment: Test performed by glucose meter. Results may be 10%-15% lowerthan serum/plasma values. (CLIA ID [id number]) Performed By: #### M G3, BMP3 ####The performing lab is in the report. Glucose mass conc 163 mg/dL High 70-100 [facility] Comment on above: Result Comment: Test performed by glucose meter. Results may be 10%-15% lowerthan serum/plasma values. (CLIA ID [id number]) Performed By: #### M G3, BMP3 ####The performing lab is in the report. Glucose mass conc 127 mg/dL High 70-100 [facility] Comment on above: Result Comment: Test performed by glucose meter. Results may be 10%-15% lowerthan serum/plasma values. (CLIA ID [id number]) Performed By: #### Ap G3, BMP3 ####The performing lab is in the report. Hemogram w/ Autodiffon 10-24 Abs Baso Cnt 0.0 10*3/uL Normal 0.0-0.2 [facility] Comment on above: Performed By: #### Ap G3, BMP3 ####The performing lab is in the report. Abs Neutrophile Cnt 3.5 10*3/uL Normal 1.8-7.0 [facility] Comment on above: Performed By: #### M G3, BMP3 ####The performing lab is in the report. Basophils/100 WBC Auto (Bld) 0.9 % Normal 0.0-2.0 [facility] Comment on above: Performed By: #### M G3, BMP3 ####The performing lab is in the report. Eosinophils Auto #/vol (Bld) 0.1 10*3/uL Normal 0.0-0.5 [facility] Comment on above: Performed By: #### M G3, BMP3 ####The performing lab is in the report. Eosinophils/100 WBC Auto (Bld) 1.8 % Normal 1.0-6.0 [facility] Comment on above: Performed By: #### Ap G3, BMP3 ####The performing lab is in the report. Erythrocyte distribution width Auto Ratio (RBC) 15.9 % High 11.5-14.5 [facility] Comment on above: Performed By: #### Ap G3, BMP3 ####The performing lab is in the report. Granulocytes/100 WBC (Bld) 67.5 % Normal 40.0-80.0 [facility] Comment on above: Performed By: #### Ap G3, BMP3 ####The performing lab is in the report. Hematocrit Auto Volume Fraction (Bld) 29.4 % Low 40.0-52.0 [facility] Comment on above: Performed By: #### Ap G3, BMP3 ####The performing lab is in the report. Hemoglobin mass conc (Bld) 9.6 g/dL Low 13.0-18.0 [facility] Comment on above: Performed By: #### Ap G3, BMP3 ####The performing lab is in the report. Lymphocytes Auto #/vol (Bld) 0.9 10*3/uL Low 1.0-4.3 [facility] Comment on above: Performed By: #### Ap G3, BMP3 ####The performing lab is in the report. Lymphocytes/100 WBC Auto (Bld) 18.3 % Low 20.0-40.0 [facility] Comment on above: Performed By: #### Ap G3, BMP3 ####The performing lab is in the report. MCH Auto Entitic mass (RBC) 27.5 pg Normal 26.0-34.0 [facility] Comment on above: Performed By: #### Ap G3, BMP3 ####The performing lab is in the report. MCHC Auto mass conc (RBC) 32.8 % Normal 32.0-36.0 [facility] Comment on above: Performed By: #### Ap G3, BMP3 ####The performing lab is in the report. MCV Auto Entitic volume (RBC) 84.0 fL Normal 80.0-98.0 [facility] Comment on above: Performed By: #### Ap G3, BMP3 ####The performing lab is in the report. Monocytes Auto #/vol (Bld) 0.6 10*3/uL Normal 0.0-0.8 [facility] Comment on above: Performed By: #### M G3, BMP3 ####The performing lab is in the report. Monocytes/100 WBC Auto (Bld) 11.5 % High 2.0-10.0 [facility] Comment on above: Performed By: #### M G3, BMP3 ####The performing lab is in the report. Platelet mean volume Auto Entitic volume (Bld) 8.8 fL Normal 7.4-10.4 [facility] Comment on above: Performed By: #### M G3, BMP3 ####The performing lab is in the report. Platelets Auto #/vol (Bld) 286 10*3/uL Normal 140-440 [facility] Comment on above: Performed By: #### Ap G3, BMP3 ####The performing lab is in the report. RBC Auto #/vol (Bld) 3.49 10*6/uL Low 4.40-5.90 [facility] Comment on above: Performed By: #### M G3, BMP3 ####The performing lab is in the report. WBC Auto #/vol (Bld) 5.2 10*3/uL Normal 3.6-10.7 [facility] Comment on above: Performed By: #### M G3, BMP3 ####The performing lab is in the report. Procalcitoninon 10-24-2017 Interpretation See Below Normal [facility] Comment on above: Result Comment: PCT <0.50 = Low risk of severe sepsis and/or septic shock.PCT >2.00 = High risk of severe sepsis and/or septic shock. Performed By: #### Ap G3, BMP3 ####The performing lab is in the report. Surgical Pathologyon 018 Surgical Pathology [id number] [facility] [facility] [address] [place] [id number] FINAL SURGICAL PATHOLOGY REPORT NAME: JAMES REYES .O.B.: 1955 62 Y M MARY NO.: [id number]: [id number] PROCEDURE 10/24/2017 DATE:SURGEON: MELQUIADES COLON M.D. RECEIVED 10/24/2017 DATE:ATTENDING: STACEY CLEMONS M.D. REPORT DATE: 10/26/2017 COPIES TO: DIAGNOSIS:"STERNA L WOUND", DEBRIDEMENT - SKIN WITH UNDERLYING FAT NECROSIS ANDGRANULATION TISSUE.SJW/ARSENIO S JAMES BALDERAS M.D. CLINICAL INFORMATION: Not providedSPECIMEN: WOUND GROSS DESCRIPTION:"Sternal wound"Received in formalin are multiple, fragmented, pink, macerated tissueaggregating to 8 x 6 x 2 cm. There are portions of skin identifiedwhich are pink-garcia and ulcerated. The underlying tissue is somewhathemorrhagic. Random sections are submitted in a single cassette.(bits ss, 1) MICHAELK/DANICAisclaimer: The following statement applies to allimmunohistochemistry , in situ hybridization, molecular studies, andimmunofluorescence testing.The use of one or more reagents in the above tests is regulated as ananalyte specific reagent (ASR). These tests were developed and theirperformance characteristics determined by [facility]. They have not been cleared by the US Food and DrugAdministration (FDA). The FDA has determined that such clearance orapproval is not necessary.All the above immunostains were performed on paraffin embedded tissue.Appropriate positive and negative controls (where applicable) were runin parallel with the patient's specimen; these controls showed expectedstaining pattern, with acceptable intensity of staining.Immunohistoche mical assays have not been validated on decalcifiedtissues. Results should be interpreted with caution given the raisedpossibility of false negativity on decalcified specimens.Professional Performing Location: [address] [address]. DEPARTMENT OF PATHOLOGY AND LABORATORY MEDICINE [place], [place] [address] Normal [facility] Basic Metabolic Panelon 07-0 Calcium mass conc 9.3 mg/dL Normal 8.4-10.4 [facility] Comment on above: Performed By: #### M G3, BMP3 ####The performing lab is in the report. Glucose mass conc 90 mg/dL Normal 70-100 [facility] Comment on above: Performed By: #### M G3, BMP3 ####The performing lab is in the report. Urea nitrogen mass conc 24 mg/dL High 7-20 [facility] Comment on above: Performed By: #### M G3, BMP3 ####The performing lab is in the report. Anion gap 3 molar conc 6 Normal [facility] Comment on above: Performed By: #### M G3, BMP3 ####The performing lab is in the report. CO2 molar conc 28 mmol/L Normal 22-30 [facility] Comment on above: Performed By: #### M G3, BMP3 ####The performing lab is in the report. Creatinine mass conc 0.86 mg/dL Normal 0.52-1.25 [facility] Comment on above: Performed By: #### M G3, BMP3 ####The performing lab is in the report. GFR/1.73 sq M predicted among blacks MDRD vol rate/area (S/P/Bld) mL/min/{1.73_m2} Normal >60 [facility] Comment on above: Performed By: #### M G3, BMP3 ####The performing lab is in the report. GFR/1.73 sq M predicted among non-blacks MDRD vol rate/area (S/P/Bld) mL/min/{1.73_m2} Normal >60 [facility] Comment on above: Result Comment: Sour ce- MDRD equation with creatinine calibration to IDMS(NKDEP) eGFR not recommended for drug dose adjustment Performed By: #### M G3, BMP3 ####The performing lab is in the report. Potassium molar conc 3.8 mmol/L Normal 3.5-5.1 [facility] Comment on above: Performed By: #### M G3, BMP3 ####The performing lab is in the report. Chloride molar conc 103 mmol/L Normal 98-107 [facility] Comment on above: Performed By: #### M G3, BMP3 ####The performing lab is in the report. Sodium molar conc 138 mmol/L Normal 137-145 [facility] Comment on above: Performed By: #### M G3, BMP3 ####The performing lab is in the report. Glucose,Bedsideon 10-23-2017 Glucose mass conc 166 mg/dL High 70-100 [facility] Comment on above: Result Comment: Test performed by glucose meter. Results may be 10%-15% lowerthan serum/plasma values. (CLIA ID [id number]) Performed By: #### M G3, BMP3 ####The performing lab is in the report. Glucose mass conc 123 mg/dL High 70-100 [facility] Comment on above: Result Comment: Test performed by glucose meter. Results may be 10%-15% lowerthan serum/plasma values. (CLIA ID [id number]) Performed By: #### M G3, BMP3 ####The performing lab is in the report. Glucose mass conc 141 mg/dL High 70-100 [facility] Comment on above: Result Comment: Test performed by glucose meter. Results may be 10%-15% lowerthan serum/plasma values. (CLIA ID [id number]) Performed By: #### M G3, BMP3 ####The performing lab is in the report. Glucose mass conc 107 mg/dL High 70-100 [facility] Comment on above: Result Comment: Test performed by glucose meter. Results may be 10%-15% lowerthan serum/plasma values. (CLIA ID [id number]) Performed By: #### M G3, BMP3 ####The performing lab is in the report. Hemogram w/ Autodiffon 10-23 Abs Baso Cnt 0.0 10*3/uL Normal 0.0-0.2 [facility] Comment on above: Performed By: #### M G3, BMP3 ####The performing lab is in the report. Abs Neutrophile Cnt 3.3 10*3/uL Normal 1.8-7.0 [facility] Comment on above: Performed By: #### M G3, BMP3 ####The performing lab is in the report. Basophils/100 WBC Auto (Bld) 0.7 % Normal 0.0-2.0 [facility] Comment on above: Performed By: #### M G3, BMP3 ####The performing lab is in the report. Eosinophils Auto #/vol (Bld) 0.1 10*3/uL Normal 0.0-0.5 [facility] Comment on above: Performed By: #### M G3, BMP3 ####The performing lab is in the report. Eosinophils/100 WBC Auto (Bld) 2.1 % Normal 1.0-6.0 [facility] Comment on above: Performed By: #### M G3, BMP3 ####The performing lab is in the report. Erythrocyte distribution width Auto Ratio (RBC) 15.9 % High 11.5-14.5 [facility] Comment on above: Performed By: #### M G3, BMP3 ####The performing lab is in the report. Granulocytes/100 WBC (Bld) 67.4 % Normal 40.0-80.0 [facility] Comment on above: Performed By: #### Ap G3, BMP3 ####The performing lab is in the report. Hematocrit Auto Volume Fraction (Bld) 29.3 % Low 40.0-52.0 [facility] Comment on above: Performed By: #### Ap G3, BMP3 ####The performing lab is in the report. Hemoglobin mass conc (Bld) 9.6 g/dL Low 13.0-18.0 [facility] Comment on above: Performed By: #### Ap G3, BMP3 ####The performing lab is in the report. Lymphocytes Auto #/vol (Bld) 0.9 10*3/uL Low 1.0-4.3 [facility] Comment on above: Performed By: #### Ap G3, BMP3 ####The performing lab is in the report. Lymphocytes/100 WBC Auto (Bld) 17.6 % Low 20.0-40.0 [facility] Comment on above: Performed By: #### Ap G3, BMP3 ####The performing lab is in the report. MCH Auto Entitic mass (RBC) 27.5 pg Normal 26.0-34.0 [facility] Comment on above: Performed By: #### Ap G3, BMP3 ####The performing lab is in the report. MCHC Auto mass conc (RBC) 32.9 % Normal 32.0-36.0 [facility] Comment on above: Performed By: #### Ap G3, BMP3 ####The performing lab is in the report. MCV Auto Entitic volume (RBC) 83.8 fL Normal 80.0-98.0 [facility] Comment on above: Performed By: #### Ap G3, BMP3 ####The performing lab is in the report. Monocytes Auto #/vol (Bld) 0.6 10*3/uL Normal 0.0-0.8 [facility] Comment on above: Performed By: #### Ap G3, BMP3 ####The performing lab is in the report. Monocytes/100 WBC Auto (Bld) 12.2 % High 2.0-10.0 [facility] Comment on above: Performed By: ###Jose Sanchez, BMP3 ####The performing lab is in the report. Platelet mean volume Auto Entitic volume (Bld) 8.5 fL Normal 7.4-10.4 [facility] Comment on above: Performed By: #### Ap Sanchez, BMP3 ####The performing lab is in the report. Platelets Auto #/vol (Bld) 266 10*3/uL Normal 140-440 [facility] Comment on above: Performed By: #### Ap Sanchez, BMP3 ####The performing lab is in the report. RBC Auto #/vol (Bld) 3.49 10*6/uL Low 4.40-5.90 [facility] Comment on above: Performed By: ###Jose Sanchez, BMP3 ####The performing lab is in the report. WBC Auto #/vol (Bld) 4.9 10*3/uL Normal 3.6-10.7 [facility] Comment on above: Performed By: ###Jose Sanchez, BMP3 ####The performing lab is in the report. Basic Metabolic Panelon 07-0 Anion gap 3 molar conc 5 Normal [facility] Comment on above: Performed By: ###Jose Sanchez, BMP3 ####The performing lab is in the report. Calcium mass conc 9.2 mg/dL Normal 8.4-10.4 [facility] Comment on above: Performed By: ###Jose Sanchez, BMP3 ####The performing lab is in the report. CO2 molar conc 30 mmol/L Normal 22-30 [facility] Comment on above: Performed By: ###Jose Sanchez, BMP3 ####The performing lab is in the report. Glucose mass conc 72 mg/dL Normal 70-100 [facility] Comment on above: Performed By: ###Jose Sanchez, BMP3 ####The performing lab is in the report. Urea nitrogen mass conc 21 mg/dL High 7-20 [facility] Comment on above: Performed By: ###Jose De Souza G3, BMP3 ####The performing lab is in the report. Creatinine mass conc 0.86 mg/dL Normal 0.52-1.25 [facility] Comment on above: Performed By: #### M G3, BMP3 ####The performing lab is in the report. GFR/1.73 sq M predicted among blacks MDRD vol rate/area (S/P/Bld) mL/min/{1.73_m2} Normal >60 [facility] Comment on above: Performed By: #### M G3, BMP3 ####The performing lab is in the report. GFR/1.73 sq M predicted among non-blacks MDRD vol rate/area (S/P/Bld) mL/min/{1.73_m2} Normal >60 [facility] Comment on above: Result Comment: Sour ce- MDRD equation with creatinine calibration to IDMS(NKDEP) eGFR not recommended for drug dose adjustment Performed By: #### M G3, BMP3 ####The performing lab is in the report. Potassium molar conc 3.4 mmol/L Low 3.5-5.1 [facility] Comment on above: Performed By: #### M G3, BMP3 ####The performing lab is in the report. Sodium molar conc 137 mmol/L Normal 137-145 [facility] Comment on above: Performed By: #### M G3, BMP3 ####The performing lab is in the report. Chloride molar conc 101 mmol/L Normal 98-107 [facility] Comment on above: Performed By: #### M G3, BMP3 ####The performing lab is in the report. CULTURE ANAEROBEon 8 CULTURE ANAEROBE CULTURE ANAEROBE --> Status: F No growth of anaerobes at 5 days. Normal [facility] Comment on above: Order Comment: or co llected Performed By: #### H EMDF, APTT, HA1C2 ####The performing lab is in the report. Glucose,Bedsideon 10-22-2017 Glucose mass conc 112 mg/dL High 70-100 [facility] Comment on above: Result Comment: Test performed by glucose meter. Results may be 10%-15% lowerthan serum/plasma values. (CLIA ID [id number]) Performed By: #### M G3, BMP3 ####The performing lab is in the report. Glucose mass conc 116 mg/dL High 70-100 [facility] Comment on above: Result Comment: Test performed by glucose meter. Results may be 10%-15% lowerthan serum/plasma values. (CLIA ID [id number]) Performed By: #### M G3, BMP3 ####The performing lab is in the report. Glucose mass conc 159 mg/dL High 70-100 [facility] Comment on above: Result Comment: Test performed by glucose meter. Results may be 10%-15% lowerthan serum/plasma values. (CLIA ID [id number]) Performed By: #### Ap G3, BMP3 ####The performing lab is in the report. Glucose mass conc 101 mg/dL High 70-100 [facility] Comment on above: Result Comment: Test performed by glucose meter. Results may be 10%-15% lowerthan serum/plasma values. (CLIA ID [id number]) Performed By: #### Ap Sanchez, BMP3 ####The performing lab is in the report. Hemogram w/ Autodiffon 10-22 Abs Baso Cnt 0.0 10*3/uL Normal 0.0-0.2 [facility] Comment on above: Performed By: #### Ap G3, BMP3 ####The performing lab is in the report. Abs Neutrophile Cnt 4.0 10*3/uL Normal 1.8-7.0 [facility] Comment on above: Performed By: #### Ap G3, BMP3 ####The performing lab is in the report. Basophils/100 WBC Auto (Bld) 0.7 % Normal 0.0-2.0 [facility] Comment on above: Performed By: #### Ap G3, BMP3 ####The performing lab is in the report. Eosinophils Auto #/vol (Bld) 0.2 10*3/uL Normal 0.0-0.5 [facility] Comment on above: Performed By: #### Ap G3, BMP3 ####The performing lab is in the report. Eosinophils/100 WBC Auto (Bld) 2.9 % Normal 1.0-6.0 [facility] Comment on above: Performed By: #### Ap G3, BMP3 ####The performing lab is in the report. Erythrocyte distribution width Auto Ratio (RBC) 16.0 % High 11.5-14.5 [facility] Comment on above: Performed By: #### M G3, BMP3 ####The performing lab is in the report. Granulocytes/100 WBC (Bld) 69.4 % Normal 40.0-80.0 [facility] Comment on above: Performed By: #### Ap G3, BMP3 ####The performing lab is in the report. Hematocrit Auto Volume Fraction (Bld) 29.9 % Low 40.0-52.0 [facility] Comment on above: Performed By: #### Ap G3, BMP3 ####The performing lab is in the report. Hemoglobin mass conc (Bld) 10.0 g/dL Low 13.0-18.0 [facility] Comment on above: Performed By: #### Ap G3, BMP3 ####The performing lab is in the report. Lymphocytes Auto #/vol (Bld) 0.9 10*3/uL Low 1.0-4.3 [facility] Comment on above: Performed By: #### Ap G3, BMP3 ####The performing lab is in the report. Lymphocytes/100 WBC Auto (Bld) 16.3 % Low 20.0-40.0 [facility] Comment on above: Performed By: #### Ap G3, BMP3 ####The performing lab is in the report. MCH Auto Entitic mass (RBC) 28.1 pg Normal 26.0-34.0 [facility] Comment on above: Performed By: #### Ap G3, BMP3 ####The performing lab is in the report. MCHC Auto mass conc (RBC) 33.4 % Normal 32.0-36.0 [facility] Comment on above: Performed By: #### Ap G3, BMP3 ####The performing lab is in the report. MCV Auto Entitic volume (RBC) 84.2 fL Normal 80.0-98.0 [facility] Comment on above: Performed By: #### Ap G3, BMP3 ####The performing lab is in the report. Monocytes Auto #/vol (Bld) 0.6 10*3/uL Normal 0.0-0.8 [facility] Comment on above: Performed By: #### Ap G3, BMP3 ####The performing lab is in the report. Monocytes/100 WBC Auto (Bld) 10.7 % High 2.0-10.0 [facility] Comment on above: Performed By: #### Ap G3, BMP3 ####The performing lab is in the report. Platelet mean volume Auto Entitic volume (Bld) 8.5 fL Normal 7.4-10.4 [facility] Comment on above: Performed By: #### Ap Sanchez, BMP3 ####The performing lab is in the report. Platelets Auto #/vol (Bld) 284 10*3/uL Normal 140-440 [facility] Comment on above: Performed By: ###Jose Sanchez, BMP3 ####The performing lab is in the report. RBC Auto #/vol (Bld) 3.55 10*6/uL Low 4.40-5.90 [facility] Comment on above: Performed By: #### Ap Sanchez, BMP3 ####The performing lab is in the report. WBC Auto #/vol (Bld) 5.7 10*3/uL Normal 3.6-10.7 [facility] Comment on above: Performed By: #### Ap G3, BMP3 ####The performing lab is in the report. Basic Metabolic Panelon 07-0 Calcium mass conc 8.9 mg/dL Normal 8.4-10.4 [facility] Comment on above: Performed By: #### Ap G3, BMP3 ####The performing lab is in the report. Glucose mass conc 70 mg/dL Normal 70-100 [facility] Comment on above: Performed By: #### Ap G3, BMP3 ####The performing lab is in the report. Anion gap 3 molar conc 5 Normal [facility] Comment on above: Performed By: #### Ap G3, BMP3 ####The performing lab is in the report. CO2 molar conc 29 mmol/L Normal 22-30 [facility] Comment on above: Performed By: #### M G3, BMP3 ####The performing lab is in the report. Creatinine mass conc 0.78 mg/dL Normal 0.52-1.25 [facility] Comment on above: Performed By: #### M G3, BMP3 ####The performing lab is in the report. GFR/1.73 sq M predicted among blacks MDRD vol rate/area (S/P/Bld) mL/min/{1.73_m2} Normal >60 [facility] Comment on above: Performed By: #### M G3, BMP3 ####The performing lab is in the report. GFR/1.73 sq M predicted among non-blacks MDRD vol rate/area (S/P/Bld) mL/min/{1.73_m2} Normal >60 [facility] Comment on above: Result Comment: Sour ce- MDRD equation with creatinine calibration to IDMS(NKDEP) eGFR not recommended for drug dose adjustment Performed By: #### Ap G3, BMP3 ####The performing lab is in the report. Urea nitrogen mass conc 15 mg/dL Normal 7-20 [facility] Comment on above: Performed By: #### Ap G3, BMP3 ####The performing lab is in the report. Chloride molar conc 104 mmol/L Normal 98-107 [facility] Comment on above: Performed By: #### Ap G3, BMP3 ####The performing lab is in the report. Potassium molar conc 3.5 mmol/L Normal 3.5-5.1 [facility] Comment on above: Performed By: #### Ap G3, BMP3 ####The performing lab is in the report. Sodium molar conc 137 mmol/L Normal 137-145 [facility] Comment on above: Performed By: #### Ap G3, BMP3 ####The performing lab is in the report. Glucose,Bedsideon 10-21-2017 Glucose mass conc 93 mg/dL Normal 70-100 [facility] Comment on above: Result Comment: Test performed by glucose meter. Results may be 10%-15% lowerthan serum/plasma values. (CLIA ID [id number]) Performed By: #### M G3, BMP3 ####The performing lab is in the report. Glucose mass conc 137 mg/dL High 70-100 [facility] Comment on above: Result Comment: Test performed by glucose meter. Results may be 10%-15% lowerthan serum/plasma values. (CLIA ID [id number]) Performed By: #### M G3, BMP3 ####The performing lab is in the report. Glucose mass conc 91 mg/dL Normal 70-100 [facility] Comment on above: Result Comment: Test performed by glucose meter. Results may be 10%-15% lowerthan serum/plasma values. (CLIA ID [id number]) Performed By: #### M G3, BMP3 ####The performing lab is in the report. Glucose mass conc 99 mg/dL Normal 70-100 [facility] Comment on above: Result Comment: Test performed by glucose meter. Results may be 10%-15% lowerthan serum/plasma values. (CLIA ID [id number]) Performed By: #### M G3, BMP3 ####The performing lab is in the report. Glucose mass conc 93 mg/dL Normal 70-100 [facility] Comment on above: Result Comment: Test performed by glucose meter. Results may be 10%-15% lowerthan serum/plasma values. (CLIA ID [id number]) Performed By: #### M G3, BMP3 ####The performing lab is in the report. Hemogram w/ Autodiffon 10-21 Abs Baso Cnt 0.0 10*3/uL Normal 0.0-0.2 [facility] Comment on above: Performed By: #### M G3, BMP3 ####The performing lab is in the report. Abs Neutrophile Cnt 3.4 10*3/uL Normal 1.8-7.0 [facility] Comment on above: Performed By: #### M G3, BMP3 ####The performing lab is in the report. Basophils/100 WBC Auto (Bld) 0.8 % Normal 0.0-2.0 [facility] Comment on above: Performed By: #### M G3, BMP3 ####The performing lab is in the report. Eosinophils Auto #/vol (Bld) 0.1 10*3/uL Normal 0.0-0.5 [facility] Comment on above: Performed By: #### M G3, BMP3 ####The performing lab is in the report. Eosinophils/100 WBC Auto (Bld) 2.3 % Normal 1.0-6.0 [facility] Comment on above: Performed By: #### Ap G3, BMP3 ####The performing lab is in the report. Erythrocyte distribution width Auto Ratio (RBC) 15.6 % High 11.5-14.5 [facility] Comment on above: Performed By: #### Ap G3, BMP3 ####The performing lab is in the report. Granulocytes/100 WBC (Bld) 68.1 % Normal 40.0-80.0 [facility] Comment on above: Performed By: #### Ap G3, BMP3 ####The performing lab is in the report. Hematocrit Auto Volume Fraction (Bld) 28.9 % Low 40.0-52.0 [facility] Comment on above: Performed By: #### Ap G3, BMP3 ####The performing lab is in the report. Hemoglobin mass conc (Bld) 9.5 g/dL Low 13.0-18.0 [facility] Comment on above: Performed By: #### Ap G3, BMP3 ####The performing lab is in the report. Lymphocytes Auto #/vol (Bld) 0.8 10*3/uL Low 1.0-4.3 [facility] Comment on above: Performed By: #### Ap G3, BMP3 ####The performing lab is in the report. Lymphocytes/100 WBC Auto (Bld) 16.5 % Low 20.0-40.0 [facility] Comment on above: Performed By: #### Ap G3, BMP3 ####The performing lab is in the report. MCH Auto Entitic mass (RBC) 27.7 pg Normal 26.0-34.0 [facility] Comment on above: Performed By: #### M G3, BMP3 ####The performing lab is in the report. MCHC Auto mass conc (RBC) 32.8 % Normal 32.0-36.0 [facility] Comment on above: Performed By: #### Ap G3, BMP3 ####The performing lab is in the report. MCV Auto Entitic volume (RBC) 84.4 fL Normal 80.0-98.0 [facility] Comment on above: Performed By: #### Ap G3, BMP3 ####The performing lab is in the report. Monocytes Auto #/vol (Bld) 0.6 10*3/uL Normal 0.0-0.8 [facility] Comment on above: Performed By: #### Ap G3, BMP3 ####The performing lab is in the report. Monocytes/100 WBC Auto (Bld) 12.3 % High 2.0-10.0 [facility] Comment on above: Performed By: #### Ap G3, BMP3 ####The performing lab is in the report. Platelet mean volume Auto Entitic volume (Bld) 8.8 fL Normal 7.4-10.4 [facility] Comment on above: Performed By: #### Ap G3, BMP3 ####The performing lab is in the report. Platelets Auto #/vol (Bld) 290 10*3/uL Normal 140-440 [facility] Comment on above: Performed By: #### Ap G3, BMP3 ####The performing lab is in the report. RBC Auto #/vol (Bld) 3.43 10*6/uL Low 4.40-5.90 [facility] Comment on above: Performed By: #### Ap G3, BMP3 ####The performing lab is in the report. WBC Auto #/vol (Bld) 5.0 10*3/uL Normal 3.6-10.7 [facility] Comment on above: Performed By: #### Ap G3, BMP3 ####The performing lab is in the report. Basic Metabolic Panelon 07-0 Anion gap 3 molar conc 5 Normal [facility] Comment on above: Performed By: #### H EMDF, APTT, HA1C2 ####The performing lab is in the report. Calcium mass conc 9.2 mg/dL Normal 8.4-10.4 [facility] Comment on above: Performed By: #### H EMDF, APTT, HA1C2 ####The performing lab is in the report. CO2 molar conc 30 mmol/L Normal 22-30 [facility] Comment on above: Performed By: #### H EMDF, APTT, HA1C2 ####The performing lab is in the report. Glucose mass conc 239 mg/dL High 70-100 [facility] Comment on above: Performed By: #### H EMDF, APTT, HA1C2 ####The performing lab is in the report. Urea nitrogen mass conc 13 mg/dL Normal 7-20 [facility] Comment on above: Performed By: #### H EMDF, APTT, HA1C2 ####The performing lab is in the report. Creatinine mass conc 0.72 mg/dL Normal 0.52-1.25 [facility] Comment on above: Performed By: #### H EMDF, APTT, HA1C2 ####The performing lab is in the report. GFR/1.73 sq M predicted among blacks MDRD vol rate/area (S/P/Bld) mL/min/{1.73_m2} Normal >60 [facility] Comment on above: Performed By: #### H EMDF, APTT, HA1C2 ####The performing lab is in the report. GFR/1.73 sq M predicted among non-blacks MDRD vol rate/area (S/P/Bld) mL/min/{1.73_m2} Normal >60 [facility] Comment on above: Result Comment: Sour ce- MDRD equation with creatinine calibration to IDMS(NKDEP) eGFR not recommended for drug dose adjustment Performed By: #### H EMDF, APTT, HA1C2 ####The performing lab is in the report. Potassium molar conc 3.9 mmol/L Normal 3.5-5.1 [facility] Comment on above: Performed By: #### H EMDF, APTT, HA1C2 ####The performing lab is in the report. Chloride molar conc 102 mmol/L Normal 98-107 [facility] Comment on above: Performed By: #### H EMDF, APTT, HA1C2 ####The performing lab is in the report. Sodium molar conc 137 mmol/L Normal 137-145 [facility] Comment on above: Performed By: #### H EMDF, APTT, HA1C2 ####The performing lab is in the report. CULT./ST. BACTERIAon 018 CULT./ST. BACTERIA CULT./ST. BACTERIA - -> Status: FMixed skin tayler present.STAIN GRAM --> Status: FNo polymorphonuclear cells/lpf.No organisms seen.No organisms seen.1 Organism Pseudomonas aeruginosaFew 1 Organism Antib iotic Result Intrp Amikacin (MARTITA) <= 2 S Cefepime(MARTITA) <= 1 S Ciprofloxacin(MARTITA) = 0.5 S Gentamicin(MARTITA) <= 1 S Levofloxacin(MARTITA) = 1 S Meropenem(MARTITA) = 1 S Pip/Tazobactam(MARTITA) <= 4 S Normal [facility] Comment on above: Order Comment: or co llected Performed By: #### H EMDF, APTT, HA1C2 ####The performing lab is in the report. Glucose,Bedsideon 10-20-2017 Glucose mass conc 108 mg/dL High 70-100 [facility] Comment on above: Result Comment: Test performed by glucose meter. Results may be 10%-15% lowerthan serum/plasma values. (CLIA ID [id number]) Performed By: #### M G3, BMP3 ####The performing lab is in the report. Glucose mass conc 131 mg/dL High 70-100 [facility] Comment on above: Result Comment: Test performed by glucose meter. Results may be 10%-15% lowerthan serum/plasma values. (CLIA ID [id number]) Performed By: #### M G3, BMP3 ####The performing lab is in the report. Glucose mass conc 141 mg/dL High 70-100 [facility] Comment on above: Result Comment: Test performed by glucose meter. Results may be 10%-15% lowerthan serum/plasma values. (CLIA ID [id number]) Performed By: #### M G3, BMP3 ####The performing lab is in the report. Glucose mass conc 134 mg/dL High 70-100 [facility] Comment on above: Result Comment: Test performed by glucose meter. Results may be 10%-15% lowerthan serum/plasma values. (CLIA ID [id number]) Performed By: #### H EMDF, APTT, HA1C2 ####The performing lab is in the report. Hemoglobin A1Con 10-20-2017 Glucose mass conc 157 mg/dL Normal [facility] Comment on above: Performed By: #### H EMDF, APTT, HA1C2 ####The performing lab is in the report. Hemoglobin A1c/Hemoglobin.total mass fraction (Bld) 7.1 % High 4.0-5.7 [facility] Comment on above: Result Comment: --Hg bA1C levels may not be accurate in patients who haverenal disease, received recent blood transfusions, are anemic,or who have dyshemoglobinemia. Performed By: #### H EMDF, APTT, HA1C2 ####The performing lab is in the report. Hemogram w/ Autodiffon 10-20 Abs Baso Cnt 0.0 10*3/uL Normal 0.0-0.2 [facility] Comment on above: Performed By: #### H EMDF, APTT, HA1C2 ####The performing lab is in the report. Abs Neutrophile Cnt 3.6 10*3/uL Normal 1.8-7.0 [facility] Comment on above: Performed By: #### H EMDF, APTT, HA1C2 ####The performing lab is in the report. Basophils/100 WBC Auto (Bld) 0.7 % Normal 0.0-2.0 [facility] Comment on above: Performed By: #### H EMDF, APTT, HA1C2 ####The performing lab is in the report. Eosinophils Auto #/vol (Bld) 0.1 10*3/uL Normal 0.0-0.5 [facility] Comment on above: Performed By: #### H EMDF, APTT, HA1C2 ####The performing lab is in the report. Eosinophils/100 WBC Auto (Bld) 2.0 % Normal 1.0-6.0 [facility] Comment on above: Performed By: #### H EMDF, APTT, HA1C2 ####The performing lab is in the report. Erythrocyte distribution width Auto Ratio (RBC) 15.9 % High 11.5-14.5 [facility] Comment on above: Performed By: #### H EMDF, APTT, HA1C2 ####The performing lab is in the report. Granulocytes/100 WBC (Bld) 71.6 % Normal 40.0-80.0 [facility] Comment on above: Performed By: #### H EMDF, APTT, HA1C2 ####The performing lab is in the report. Hematocrit Auto Volume Fraction (Bld) 28.0 % Low 40.0-52.0 [facility] Comment on above: Performed By: #### H EMDF, APTT, HA1C2 ####The performing lab is in the report. Hemoglobin mass conc (Bld) 9.2 g/dL Low 13.0-18.0 [facility] Comment on above: Performed By: #### H EMDF, APTT, HA1C2 ####The performing lab is in the report. Lymphocytes Auto #/vol (Bld) 0.7 10*3/uL Low 1.0-4.3 [facility] Comment on above: Performed By: #### H EMDF, APTT, HA1C2 ####The performing lab is in the report. Lymphocytes/100 WBC Auto (Bld) 13.8 % Low 20.0-40.0 [facility] Comment on above: Performed By: #### H EMDF, APTT, HA1C2 ####The performing lab is in the report. MCH Auto Entitic mass (RBC) 27.8 pg Normal 26.0-34.0 [facility] Comment on above: Performed By: #### H EMDF, APTT, HA1C2 ####The performing lab is in the report. MCHC Auto mass conc (RBC) 32.9 % Normal 32.0-36.0 [facility] Comment on above: Performed By: #### H EMDF, APTT, HA1C2 ####The performing lab is in the report. MCV Auto Entitic volume (RBC) 84.5 fL Normal 80.0-98.0 [facility] Comment on above: Performed By: #### H EMDF, APTT, HA1C2 ####The performing lab is in the report. Monocytes Auto #/vol (Bld) 0.6 10*3/uL Normal 0.0-0.8 [facility] Comment on above: Performed By: #### H EMDF, APTT, HA1C2 ####The performing lab is in the report. Monocytes/100 WBC Auto (Bld) 11.9 % High 2.0-10.0 [facility] Comment on above: Performed By: #### H EMDF, APTT, HA1C2 ####The performing lab is in the report. Platelet mean volume Auto Entitic volume (Bld) 8.1 fL Normal 7.4-10.4 [facility] Comment on above: Performed By: #### H EMDF, APTT, HA1C2 ####The performing lab is in the report. Platelets Auto #/vol (Bld) 305 10*3/uL Normal 140-440 [facility] Comment on above: Performed By: #### H EMDF, APTT, HA1C2 ####The performing lab is in the report. RBC Auto #/vol (Bld) 3.32 10*6/uL Low 4.40-5.90 [facility] Comment on above: Performed By: #### H EMDF, APTT, HA1C2 ####The performing lab is in the report. WBC Auto #/vol (Bld) 5.1 10*3/uL Normal 3.6-10.7 [facility] Comment on above: Performed By: #### H EMDF, APTT, HA1C2 ####The performing lab is in the report. Basic Metabolic Panelon 07-0 Anion gap 3 molar conc 7 Normal [facility] Comment on above: Performed By: #### H EMDF, APTT, HA1C2 ####The performing lab is in the report. Calcium mass conc 9.4 mg/dL Normal 8.4-10.4 [facility] Comment on above: Performed By: #### H EMDF, APTT, HA1C2 ####The performing lab is in the report. CO2 molar conc 29 mmol/L Normal 22-30 [facility] Comment on above: Performed By: #### H EMDF, APTT, HA1C2 ####The performing lab is in the report. Glucose mass conc 110 mg/dL High 70-100 [facility] Comment on above: Performed By: #### H EMDF, APTT, HA1C2 ####The performing lab is in the report. Urea nitrogen mass conc 12 mg/dL Normal 7-20 [facility] Comment on above: Performed By: #### H EMDF, APTT, HA1C2 ####The performing lab is in the report. Creatinine mass conc 0.73 mg/dL Normal 0.52-1.25 [facility] Comment on above: Performed By: #### H EMDF, APTT, HA1C2 ####The performing lab is in the report. GFR/1.73 sq M predicted among blacks MDRD vol rate/area (S/P/Bld) mL/min/{1.73_m2} Normal >60 [facility] Comment on above: Performed By: #### H EMDF, APTT, HA1C2 ####The performing lab is in the report. GFR/1.73 sq M predicted among non-blacks MDRD vol rate/area (S/P/Bld) mL/min/{1.73_m2} Normal >60 [facility] Comment on above: Result Comment: Sour ce- MDRD equation with creatinine calibration to IDMS(NKDEP) eGFR not recommended for drug dose adjustment Performed By: #### H EMDF, APTT, HA1C2 ####The performing lab is in the report. Potassium molar conc 3.9 mmol/L Normal 3.5-5.1 [facility] Comment on above: Performed By: #### H EMDF, APTT, HA1C2 ####The performing lab is in the report. Sodium molar conc 137 mmol/L Normal 137-145 [facility] Comment on above: Performed By: #### H EMDF, APTT, HA1C2 ####The performing lab is in the report. Chloride molar conc 102 mmol/L Normal 98-107 [facility] Comment on above: Performed By: #### H EMDF, APTT, HA1C2 ####The performing lab is in the report. CR Chest Portableon 10-20-19 18 CR Chest Portable Patient Name: JAMES REYES Diagnostic Radiology Exam Date/Time 10/19/2017 18:16:20 EDT Exam CR Chest Portable Ordering Physician JACQUES WADE Accession Number [id number] CPT4 Codes 56512 () Reason For Exam picc Report PORTABLE CHEST CLINICAL INDICATION: PICC line placement TECHNIQUE: Portable AP COMPARISON: 08/16/[address] from 09/24/2017 FINDINGS: The heart and mediastinum are normal. Left-sided PICC line is noted with its tip near the junction of superior vena cava and right atrium. No consolidation or atelectasis is noted. A circumscribed lucent region is noted within the right mid hemithorax measuring 3.5 cm is, corresponding to a known bleb as identified on CT. The costophrenic angles are sharp. Sternal wires are noted. IMPRESSION: Left-sided PICC line in adequate position . No new consolidation or atelectasis. Report Dictated on Final Dictated: 10/19/2017 6:17 pm Dictating Physician: MD BURNS JEFFREY Signed Date and Time: 10/19/2017 6:18 pm Signed by: MD BURNS JEFFREY Transcribed Date and Time: 10/19/2017 6:17 Normal [facility] Glucose,Bedsideon 10-19-2017 Glucose mass conc 151 mg/dL High 70-100 [facility] Comment on above: Result Comment: Test performed by glucose meter. Results may be 10%-15% lowerthan serum/plasma values. (CLIA ID [id number]) Performed By: #### H EMDF, APTT, HA1C2 ####The performing lab is in the report. Glucose mass conc 115 mg/dL High 70-100 [facility] Comment on above: Result Comment: Test performed by glucose meter. Results may be 10%-15% lowerthan serum/plasma values. (CLIA ID [id number]) Performed By: #### H EMDF, APTT, HA1C2 ####The performing lab is in the report. Glucose mass conc 162 mg/dL High 70-100 [facility] Comment on above: Result Comment: Test performed by glucose meter. Results may be 10%-15% lowerthan serum/plasma values. (CLIA ID [id number]) Performed By: #### H EMDF, APTT, HA1C2 ####The performing lab is in the report. Glucose mass conc 142 mg/dL High 70-100 [facility] Comment on above: Result Comment: Test performed by glucose meter. Results may be 10%-15% lowerthan serum/plasma values. (CLIA ID [id number]) Performed By: #### H EMDF, APTT, HA1C2 ####The performing lab is in the report. Hemogram w/ Autodiffon 10-19 Abs Baso Cnt 0.0 10*3/uL Normal 0.0-0.2 [facility] Comment on above: Performed By: #### H EMDF, APTT, HA1C2 ####The performing lab is in the report. Abs Neutrophile Cnt 3.1 10*3/uL Normal 1.8-7.0 [facility] Comment on above: Performed By: #### H EMDF, APTT, HA1C2 ####The performing lab is in the report. Basophils/100 WBC Auto (Bld) 0.8 % Normal 0.0-2.0 [facility] Comment on above: Performed By: #### H EMDF, APTT, HA1C2 ####The performing lab is in the report. Eosinophils Auto #/vol (Bld) 0.1 10*3/uL Normal 0.0-0.5 [facility] Comment on above: Performed By: #### H EMDF, APTT, HA1C2 ####The performing lab is in the report. Eosinophils/100 WBC Auto (Bld) 2.1 % Normal 1.0-6.0 [facility] Comment on above: Performed By: #### H EMDF, APTT, HA1C2 ####The performing lab is in the report. Erythrocyte distribution width Auto Ratio (RBC) 15.7 % High 11.5-14.5 [facility] Comment on above: Performed By: #### H EMDF, APTT, HA1C2 ####The performing lab is in the report. Granulocytes/100 WBC (Bld) 67.4 % Normal 40.0-80.0 [facility] Comment on above: Performed By: #### H EMDF, APTT, HA1C2 ####The performing lab is in the report. Hematocrit Auto Volume Fraction (Bld) 29.9 % Low 40.0-52.0 [facility] Comment on above: Performed By: #### H EMDF, APTT, HA1C2 ####The performing lab is in the report. Hemoglobin mass conc (Bld) 9.8 g/dL Low 13.0-18.0 [facility] Comment on above: Performed By: #### H EMDF, APTT, HA1C2 ####The performing lab is in the report. Lymphocytes Auto #/vol (Bld) 0.8 10*3/uL Low 1.0-4.3 [facility] Comment on above: Performed By: #### H EMDF, APTT, HA1C2 ####The performing lab is in the report. Lymphocytes/100 WBC Auto (Bld) 17.4 % Low 20.0-40.0 [facility] Comment on above: Performed By: #### H EMDF, APTT, HA1C2 ####The performing lab is in the report. MCH Auto Entitic mass (RBC) 27.6 pg Normal 26.0-34.0 [facility] Comment on above: Performed By: #### H EMDF, APTT, HA1C2 ####The performing lab is in the report. MCHC Auto mass conc (RBC) 32.8 % Normal 32.0-36.0 [facility] Comment on above: Performed By: #### H EMDF, APTT, HA1C2 ####The performing lab is in the report. MCV Auto Entitic volume (RBC) 84.2 fL Normal 80.0-98.0 [facility] Comment on above: Performed By: #### H EMDF, APTT, HA1C2 ####The performing lab is in the report. Monocytes Auto #/vol (Bld) 0.6 10*3/uL Normal 0.0-0.8 [facility] Comment on above: Performed By: #### H EMDF, APTT, HA1C2 ####The performing lab is in the report. Monocytes/100 WBC Auto (Bld) 12.3 % High 2.0-10.0 [facility] Comment on above: Performed By: #### H EMDF, APTT, HA1C2 ####The performing lab is in the report. Platelet mean volume Auto Entitic volume (Bld) 7.9 fL Normal 7.4-10.4 [facility] Comment on above: Performed By: #### H EMDF, APTT, HA1C2 ####The performing lab is in the report. Platelets Auto #/vol (Bld) 367 10*3/uL Normal 140-440 [facility] Comment on above: Performed By: #### H EMDF, APTT, HA1C2 ####The performing lab is in the report. RBC Auto #/vol (Bld) 3.55 10*6/uL Low 4.40-5.90 [facility] Comment on above: Performed By: #### H EMDF, APTT, HA1C2 ####The performing lab is in the report. WBC Auto #/vol (Bld) 4.7 10*3/uL Normal 3.6-10.7 [facility] Comment on above: Performed By: #### H EMDF, APTT, HA1C2 ####The performing lab is in the report. Glucose,Bedsideon 10-18-2017 Glucose mass conc 140 mg/dL High 70-100 [facility] Comment on above: Result Comment: Test performed by glucose meter. Results may be 10%-15% lowerthan serum/plasma values. (CLIA ID [id number]) Performed By: #### H EMDF, APTT, HA1C2 ####The performing lab is in the report. Glucose mass conc 133 mg/dL High 70-100 [facility] Comment on above: Result Comment: Conf irmation Drawn;Caregiver Notified;Test performed by glucose meter. Results may be 10%-15% lowerthan serum/plasma values. (CLIA ID [id number]) Performed By: #### H EMDF, APTT, HA1C2 ####The performing lab is in the report. Glucose mass conc 136 mg/dL High 70-100 [facility] Comment on above: Result Comment: Test performed by glucose meter. Results may be 10%-15% lowerthan serum/plasma values. (CLIA ID [id number]) Performed By: #### H EMDF, APTT, HA1C2 ####The performing lab is in the report. Glucose mass conc 139 mg/dL High 70-100 [facility] Comment on above: Result Comment: Test performed by glucose meter. Results may be 10%-15% lowerthan serum/plasma values. (CLIA ID [id number]) Performed By: #### H EMDF, APTT, HA1C2 ####The performing lab is in the report. Glucose mass conc 136 mg/dL High 70-100 [facility] Comment on above: Result Comment: Test performed by glucose meter. Results may be 10%-15% lowerthan serum/plasma values. (CLIA ID [id number]) Performed By: #### H EMDF, APTT, HA1C2 ####The performing lab is in the report. Glucose mass conc 116 mg/dL High 70-100 [facility] Comment on above: Result Comment: Test performed by glucose meter. Results may be 10%-15% lowerthan serum/plasma values. (CLIA ID [id number]) Performed By: #### H EMDF, APTT, HA1C2 ####The performing lab is in the report. Basic Metabolic Panelon 07-0 Anion gap 3 molar conc 7 Normal [facility] Comment on above: Performed By: #### H EMDF, APTT, HA1C2 ####The performing lab is in the report. Calcium mass conc 9.2 mg/dL Normal 8.4-10.4 [facility] Comment on above: Performed By: #### H EMDF, APTT, HA1C2 ####The performing lab is in the report. CO2 molar conc 28 mmol/L Normal 22-30 [facility] Comment on above: Performed By: #### H EMDF, APTT, HA1C2 ####The performing lab is in the report. Glucose mass conc 182 mg/dL High 70-100 [facility] Comment on above: Performed By: #### H EMDF, APTT, HA1C2 ####The performing lab is in the report. Urea nitrogen mass conc 16 mg/dL Normal 7-20 [facility] Comment on above: Performed By: #### H EMDF, APTT, HA1C2 ####The performing lab is in the report. Creatinine mass conc 0.77 mg/dL Normal 0.52-1.25 [facility] Comment on above: Performed By: #### H EMDF, APTT, HA1C2 ####The performing lab is in the report. GFR/1.73 sq M predicted among blacks MDRD vol rate/area (S/P/Bld) mL/min/{1.73_m2} Normal >60 [facility] Comment on above: Performed By: #### H EMDF, APTT, HA1C2 ####The performing lab is in the report. GFR/1.73 sq M predicted among non-blacks MDRD vol rate/area (S/P/Bld) mL/min/{1.73_m2} Normal >60 [facility] Comment on above: Result Comment: Sour ce- MDRD equation with creatinine calibration to IDMS(NKDEP) eGFR not recommended for drug dose adjustment Performed By: #### H EMDF, APTT, HA1C2 ####The performing lab is in the report. Potassium molar conc 4.9 mmol/L Normal 3.5-5.1 [facility] Comment on above: Performed By: #### H EMDF, APTT, HA1C2 ####The performing lab is in the report. Sodium molar conc 137 mmol/L Normal 137-145 [facility] Comment on above: Performed By: #### H EMDF, APTT, HA1C2 ####The performing lab is in the report. Chloride molar conc 102 mmol/L Normal 98-107 [facility] Comment on above: Performed By: #### H EMDF, APTT, HA1C2 ####The performing lab is in the report. Glucose,Bedsideon 10-17-2017 Glucose mass conc 117 mg/dL High 70-100 [facility] Comment on above: Result Comment: Test performed by glucose meter. Results may be 10%-15% lowerthan serum/plasma values. (CLIA ID [id number]) Performed By: #### H EMDF, APTT, HA1C2 ####The performing lab is in the report. Glucose mass conc 170 mg/dL High 70-100 [facility] Comment on above: Result Comment: Test performed by glucose meter. Results may be 10%-15% lowerthan serum/plasma values. (CLIA ID [id number]) Performed By: #### H EMDF, APTT, HA1C2 ####The performing lab is in the report. Glucose mass conc 180 mg/dL High 70-100 [facility] Comment on above: Result Comment: Test performed by glucose meter. Results may be 10%-15% lowerthan serum/plasma values. (CLIA ID [id number]) Performed By: #### H EMDF, APTT, HA1C2 ####The performing lab is in the report. Hemogramon 10-17-2017 Erythrocyte distribution width Auto Ratio (RBC) 15.5 % High 11.5-14.5 [facility] Comment on above: Performed By: #### H EMDF, APTT, HA1C2 ####The performing lab is in the report. Hematocrit Auto Volume Fraction (Bld) 29.0 % Low 40.0-52.0 [facility] Comment on above: Performed By: #### H EMDF, APTT, HA1C2 ####The performing lab is in the report. Hemoglobin mass conc (Bld) 9.3 g/dL Low 13.0-18.0 [facility] Comment on above: Performed By: #### H EMDF, APTT, HA1C2 ####The performing lab is in the report. MCH Auto Entitic mass (RBC) 27.2 pg Normal 26.0-34.0 [facility] Comment on above: Performed By: #### H EMDF, APTT, HA1C2 ####The performing lab is in the report. MCHC Auto mass conc (RBC) 31.9 % Low 32.0-36.0 [facility] Comment on above: Performed By: #### H EMDF, APTT, HA1C2 ####The performing lab is in the report. MCV Auto Entitic volume (RBC) 85.2 fL Normal 80.0-98.0 [facility] Comment on above: Performed By: #### H EMDF, APTT, HA1C2 ####The performing lab is in the report. Platelet mean volume Auto Entitic volume (Bld) 8.5 fL Normal 7.4-10.4 [facility] Comment on above: Performed By: #### H EMDF, APTT, HA1C2 ####The performing lab is in the report. Platelets Auto #/vol (Bld) 364 10*3/uL Normal 140-440 [facility] Comment on above: Performed By: #### H EMDF, APTT, HA1C2 ####The performing lab is in the report. RBC Auto #/vol (Bld) 3.40 10*6/uL Low 4.40-5.90 [facility] Comment on above: Performed By: #### H EMDF, APTT, HA1C2 ####The performing lab is in the report. WBC Auto #/vol (Bld) 4.3 10*3/uL Normal 3.6-10.7 [facility] Comment on above: Performed By: #### H EMDF, APTT, HA1C2 ####The performing lab is in the report. STAIN ACID-FASTon 10-17-2017 STAIN ACID-FAST STAIN ACID-FAST --> Status: F No acid-fast bacilli seen in smear. - Method: Fluorescent Stain - Method: Fluorescent Stain Normal [facility] Comment on above: Order Comment: or co llected Performed By: #### H EMDF, APTT, HA1C2 ####The performing lab is in the report. STAIN FUNGUSon 10-17-2017 STAIN FUNGUS STAIN FUNGUS --> Status: F No fungal elements seen. - Method: Direct Exam by Calcofluor Stain - Method: Direct Exam by Calcofluor Stain Normal [facility] Comment on above: Order Comment: or co llected Performed By: #### H EMDF, APTT, HA1C2 ####The performing lab is in the report. Glucose,Bedsideon 10-16-2017 Glucose mass conc 260 mg/dL High 70-100 [facility] Comment on above: Result Comment: Test performed by glucose meter. Results may be 10%-15% lowerthan serum/plasma values. (CLIA ID [id number]) Performed By: #### H EMDF, APTT, HA1C2 ####The performing lab is in the report. Glucose mass conc 157 mg/dL High 70-100 [facility] Comment on above: Result Comment: Test performed by glucose meter. Results may be 10%-15% lowerthan serum/plasma values. (CLIA ID [id number]) Performed By: #### H EMDF, MG3, BMP3 ####The performing lab is in the report. Glucose mass conc 127 mg/dL High 70-100 [facility] Comment on above: Result Comment: Test performed by glucose meter. Results may be 10%-15% lowerthan serum/plasma values. (CLIA ID [id number]) Performed By: #### H EMDF, MG3, BMP3 ####The performing lab is in the report. Glucose mass conc 149 mg/dL High 70-100 [facility] Comment on above: Result Comment: Test performed by glucose meter. Results may be 10%-15% lowerthan serum/plasma values. (CLIA ID [id number]) Performed By: #### H EMDF, MG3, BMP3 ####The performing lab is in the report. Surgical Pathologyon 018 Surgical Pathology [id number] [facility] PATHOLOGY AND LABORATORY MEDICINE [address] [place] [id number] FINAL SURGICAL PATHOLOGY REPORT NAME: JAMES REYES .O.B.: 1955 62 Y M BILLING NO.: [id number]: [id number] PROCEDURE 10/16/2017 DATE:SURGEON: STACEY CLEMONS M.D. RECEIVED 10/17/2017 DATE:ATTENDING: STACEY CLEMONS M.D. REPORT DATE: 10/19/2017 COPIES TO: DIAGNOSIS:TISSUE, SUPERFICIAL STERNAL WOUND, EXCISION - FIBROADIPOSE TISSUE WITHACUTE INFLAMMATION AND FAT NECROSIS.NPL/0RW ALONSO YIP MD CLINICAL INFORMATION: Superficial sternal wound dehiscenceSPECIMEN: WOUND GROSS DESCRIPTION:"Superficia l sternal wound debridement, fat necrosis"Received in formalin are fragments of rubbery, yellow-escobar tissueaggregating to 4 x 3 x 1 cm. Cut surfaces are yellow-garcia to escobar incolor. No areas of hemorrhage are identified. Some areas appearsomewhat friable. Random sections are submitted in a single cassette.(bits ss, 1) [id number]: The following statement applies to allimmunohistochemistry , in situ hybridization, molecular studies, andimmunofluorescence testing.The use of one or more reagents in the above tests is regulated as ananalyte specific reagent (ASR). These tests were developed and theirperformance characteristics determined by the clinical laboratories [facility]. They have not been cleared by the US Food and DrugAdministration (FDA). The FDA has determined that such clearance orapproval is not necessary.All the above immunostains were performed on paraffin embedded tissue.Appropriate positive and negative controls (where applicable) were runin parallel with the patient's specimen; these controls showed expectedstaining pattern, with acceptable intensity of staining.Immunohistoche mical assays have not been validated on decalcifiedtissues. Results should be interpreted with caution given the raisedpossibility of false negativity on decalcified specimens.Professional Performing Location: [address] [address]. DEPARTMENT OF PATHOLOGY AND LABORATORY MEDICINE [place], [place] [address] Normal [facility] Basic Metabolic Panelon 05-0 Calcium mass conc 9.1 mg/dL Normal 8.4-10.2 [facility] Comment on above: Performed By: #### H EMDF, MG3, BMP3 ####The performing lab is in the report. Anion gap 3 molar conc 7 mmol/L Normal [facility] Comment on above: Performed By: #### H EMDF, MG3, BMP3 ####The performing lab is in the report. CO2 molar conc 32 mmol/L High 22-30 [facility] Comment on above: Performed By: #### H EMDF, MG3, BMP3 ####The performing lab is in the report. Creatinine mass conc 1.11 mg/dL Normal 0.52-1.25 [facility] Comment on above: Performed By: #### H EMDF, MG3, BMP3 ####The performing lab is in the report. GFR/1.73 sq M predicted among blacks MDRD vol rate/area (S/P/Bld) mL/min/{1.73_m2} Normal >60 [facility] Comment on above: Performed By: #### H EMDF, MG3, BMP3 ####The performing lab is in the report. GFR/1.73 sq M predicted among non-blacks MDRD vol rate/area (S/P/Bld) mL/min/{1.73_m2} Normal >60 [facility] Comment on above: Result Comment: Sour ce- MDRD equation with creatinine calibration to IDMS(NKDEP)eGFR not recommended for drug dose adjustment Performed By: #### H EMDF, MG3, BMP3 ####The performing lab is in the report. Glucose mass conc 47 mg/dL Low 70-100 [facility] Comment on above: Performed By: #### H EMDF, MG3, BMP3 ####The performing lab is in the report. Urea nitrogen mass conc 16 mg/dL Normal 7-20 [facility] Comment on above: Performed By: #### H EMDF, MG3, BMP3 ####The performing lab is in the report. Chloride molar conc 99 mmol/L Normal 98-107 [facility] Comment on above: Performed By: #### H EMDF, MG3, BMP3 ####The performing lab is in the report. Potassium molar conc 3.4 mmol/L Low 3.5-5.1 [facility] Comment on above: Performed By: #### H EMDF, MG3, BMP3 ####The performing lab is in the report. Sodium molar conc 137 mmol/L Normal 137-145 [facility] Comment on above: Performed By: #### H EMDF, MG3, BMP3 ####The performing lab is in the report. CR Chest Portableon 08-17-19 18 CR Chest Portable Patient Name: JAMES REYES Diagnostic Radiology Exam Date/Time 08/16/2017 05:45:45 EDT Exam CR Chest Portable Ordering Physician STACEY CLEMONS Accession Number [id number] CPT4 Codes 91416 () Reason For Exam Post op open heart surgery Report CLINICAL INFORMATION: Status post open heart surgery. CHEST X-RAY, PORTABLE, 0531 hours: An AP portable view is compared to the prior examination of the previous day. The examination is underpenetrated. There are median sternotomy wires from prior thoracic surgery. A right internal jugular [place] introducer sheath is unchanged in position. The left lower hemithorax chest tube has been removed. There is no change in the appearance of the prominent mediastinum and cardiac silhouette. The pulmonary vascular congestion is unchanged. There is no pneumothorax. No other acute process or interval change. Report Dictated on Final Dictated: 08/16/2017 7:48 am Dictating Physician: MD HE HARLAN Signed Date and Time: 08/16/2017 8:13 am Signed by: MD HE HARLAN Transcribed Date and Time: 08/16/2017 7:48 Normal [facility] Glucose,Bedsideon 08-16-2017 Glucose mass conc 201 mg/dL High 70-100 [facility] Comment on above: Result Comment: Test performed by glucose meter. Results may be 10%-15% lowerthan serum/plasma values. (CLIA ID [id number]) Performed By: #### B GLU ####The performing lab is in the report. Hemogramon 08-16-2017 Erythrocyte distribution width Auto Ratio (RBC) 14.5 % Normal 11.5-14.5 [facility] Comment on above: Performed By: #### H EMDF, MG3, BMP3 ####The performing lab is in the report. Hematocrit Auto Volume Fraction (Bld) 26.2 % Low 40.0-52.0 [facility] Comment on above: Performed By: #### H EMDF, MG3, BMP3 ####The performing lab is in the report. Hemoglobin mass conc (Bld) 8.6 g/dL Low 13.0-18.0 [facility] Comment on above: Performed By: #### H EMDF, MG3, BMP3 ####The performing lab is in the report. MCH Auto Entitic mass (RBC) 30.6 pg Normal 26.0-34.0 [facility] Comment on above: Performed By: #### H EMDF, MG3, BMP3 ####The performing lab is in the report. MCHC Auto mass conc (RBC) 32.7 % Normal 32.0-36.0 [facility] Comment on above: Performed By: #### H EMDF, MG3, BMP3 ####The performing lab is in the report. MCV Auto Entitic volume (RBC) 93.6 fL Normal 80.0-98.0 [facility] Comment on above: Performed By: #### H EMDF, MG3, BMP3 ####The performing lab is in the report. Platelet mean volume Auto Entitic volume (Bld) 8.5 fL Normal 7.4-10.4 [facility] Comment on above: Performed By: #### H EMDF, MG3, BMP3 ####The performing lab is in the report. Platelets Auto #/vol (Bld) 312 10*3/uL Normal 140-440 [facility] Comment on above: Performed By: #### H EMDF, MG3, BMP3 ####The performing lab is in the report. RBC Auto #/vol (Bld) 2.81 10*6/uL Low 4.40-5.90 [facility] Comment on above: Performed By: #### H EMDF, MG3, BMP3 ####The performing lab is in the report. WBC Auto #/vol (Bld) 4.8 10*3/uL Normal 3.6-10.7 [facility] Comment on above: Performed By: #### H EMDF, MG3, BMP3 ####The performing lab is in the report. Magnesiumon 08-16-2017 Magnesium mass conc 1.9 mg/dL Normal 1.6-2.3 [facility] Comment on above: Performed By: #### Alfonso EMDF, MG3, BMP3 ####The performing lab is in the report. Basic Metabolic Panelon Calcium mass conc 8.4 mg/dL Normal 8.4-10.2 [facility] Comment on above: Performed By: #### H EMDF, MG3, BMP3 ####The performing lab is in the report. Glucose mass conc 106 mg/dL High 70-100 [facility] Comment on above: Performed By: #### H EMDF, MG3, BMP3 ####The performing lab is in the report. Anion gap 3 molar conc 6 mmol/L Normal [facility] Comment on above: Performed By: #### H EMDF, MG3, BMP3 ####The performing lab is in the report. CO2 molar conc 27 mmol/L Normal 22-30 [facility] Comment on above: Performed By: #### H EMDF, MG3, BMP3 ####The performing lab is in the report. Creatinine mass conc 1.04 mg/dL Normal 0.52-1.25 [facility] Comment on above: Performed By: #### H EMDF, MG3, BMP3 ####The performing lab is in the report. GFR/1.73 sq M predicted among blacks MDRD vol rate/area (S/P/Bld) mL/min/{1.73_m2} Normal >60 [facility] Comment on above: Performed By: #### H EMDF, MG3, BMP3 ####The performing lab is in the report. GFR/1.73 sq M predicted among non-blacks MDRD vol rate/area (S/P/Bld) mL/min/{1.73_m2} Normal >60 [facility] Comment on above: Result Comment: Sour ce- MDRD equation with creatinine calibration to IDMS(NKDEP)eGFR not recommended for drug dose adjustment Performed By: #### H EMDF, MG3, BMP3 ####The performing lab is in the report. Urea nitrogen mass conc 19 mg/dL Normal 7-20 [facility] Comment on above: Performed By: #### H EMDF, MG3, BMP3 ####The performing lab is in the report. Chloride molar conc 102 mmol/L Normal 98-107 [facility] Comment on above: Performed By: #### H EMDF, MG3, BMP3 ####The performing lab is in the report. Potassium molar conc 4.4 mmol/L Normal 3.5-5.1 [facility] Comment on above: Performed By: #### H EMDF, MG3, BMP3 ####The performing lab is in the report. Sodium molar conc 135 mmol/L Low 137-145 [facility] Comment on above: Performed By: #### H EMDF, MG3, BMP3 ####The performing lab is in the report. CR Chest Portableon 08-16-19 18 CR Chest Portable Patient Name: JAMES REYES [facility]: [id number] Diagnostic Radiology Exam Date/Time 08/15/2017 05:46:21 EDT Exam CR Chest Portable Ordering Physician STACEY CLEMONS Accession Number [id number] CPT4 Codes 70137 () Reason For Exam Post op open heart surgery Report Portable chest Clinical: Postop open-heart surgery COMPARISON: August 14, 2017 Stable appearance of cardiomegaly. Median sternotomy changes are again noted. There is a left basilar chest tube, a mediastinal drainage catheter and right internal jugular introducer sheath as on the prior study. There is central pulmonary vascular congestion, mild interstitial edema and bibasilar atelectatic changes and small layering basilar pleural effusion, slightly improved on the right compared to the prior day's exam. No sizable pneumothorax is appreciated. Report Dictated on Final Dictated: 08/15/2017 7:17 am Dictating Physician: MAYO VELASQUEZ Signed Date and Time: 08/15/2017 7:18 am Signed by: MAYO VELASQUEZ Transcribed Date and Time: 08/15/2017 7:17 Normal [facility] Hemogramon 08-15-2017 Erythrocyte distribution width Auto Ratio (RBC) 14.6 % High 11.5-14.5 [facility] Comment on above: Performed By: #### H EMDF, MG3, BMP3 ####The performing lab is in the report. Hematocrit Auto Volume Fraction (Bld) 24.1 % Low 40.0-52.0 [facility] Comment on above: Performed By: #### H EMDF, MG3, BMP3 ####The performing lab is in the report. Hemoglobin mass conc (Bld) 7.8 g/dL Low 13.0-18.0 [facility] Comment on above: Performed By: #### H EMDF, MG3, BMP3 ####The performing lab is in the report. MCH Auto Entitic mass (RBC) 30.8 pg Normal 26.0-34.0 [facility] Comment on above: Performed By: #### H EMDF, MG3, BMP3 ####The performing lab is in the report. MCHC Auto mass conc (RBC) 32.3 % Normal 32.0-36.0 [facility] Comment on above: Performed By: #### H EMDF, MG3, BMP3 ####The performing lab is in the report. MCV Auto Entitic volume (RBC) 95.4 fL Normal 80.0-98.0 [facility] Comment on above: Performed By: #### H EMDF, MG3, BMP3 ####The performing lab is in the report. Platelet mean volume Auto Entitic volume (Bld) 9.1 fL Normal 7.4-10.4 [facility] Comment on above: Performed By: #### H EMDF, MG3, BMP3 ####The performing lab is in the report. Platelets Auto #/vol (Bld) 208 10*3/uL Normal 140-440 [facility] Comment on above: Performed By: #### H EMDF, MG3, BMP3 ####The performing lab is in the report. RBC Auto #/vol (Bld) 2.52 10*6/uL Low 4.40-5.90 [facility] Comment on above: Performed By: #### Alfonso EMDF, MG3, BMP3 ####The performing lab is in the report. WBC Auto #/vol (Bld) 5.0 10*3/uL Normal 3.6-10.7 [facility] Comment on above: Performed By: #### Alfonso EMDF, MG3, BMP3 ####The performing lab is in the report. Magnesiumon 08-15-2017 Magnesium mass conc 2.0 mg/dL Normal 1.6-2.3 [facility] Comment on above: Performed By: #### Alfonso EMDF, MG3, BMP3 ####The performing lab is in the report. Basic Metabolic Panelon 07-18 Anion gap 3 molar conc 7 mmol/L Normal [facility] Comment on above: Performed By: #### Alfonso EMDF, MG3, BMP3 ####The performing lab is in the report. Calcium mass conc 8.6 mg/dL Normal 8.4-10.2 [facility] Comment on above: Performed By: #### H EMDF, MG3, BMP3 ####The performing lab is in the report. CO2 molar conc 25 mmol/L Normal 22-30 [facility] Comment on above: Performed By: #### H EMDF, MG3, BMP3 ####The performing lab is in the report. Creatinine mass conc 1.01 mg/dL Normal 0.52-1.25 [facility] Comment on above: Performed By: #### H EMDF, MG3, BMP3 ####The performing lab is in the report. GFR/1.73 sq M predicted among blacks MDRD vol rate/area (S/P/Bld) mL/min/{1.73_m2} Normal >60 [facility] Comment on above: Performed By: #### H EMDF, MG3, BMP3 ####The performing lab is in the report. GFR/1.73 sq M predicted among non-blacks MDRD vol rate/area (S/P/Bld) mL/min/{1.73_m2} Normal >60 [facility] Comment on above: Result Comment: Sour ce- MDRD equation with creatinine calibration to IDMS(NKDEP)eGFR not recommended for drug dose adjustment Performed By: #### H EMDF, MG3, BMP3 ####The performing lab is in the report. Glucose mass conc 119 mg/dL High 70-100 [facility] Comment on above: Performed By: #### H EMDF, MG3, BMP3 ####The performing lab is in the report. Urea nitrogen mass conc 19 mg/dL Normal 7-20 [facility] Comment on above: Performed By: #### H EMDF, MG3, BMP3 ####The performing lab is in the report. Chloride molar conc 106 mmol/L Normal 98-107 [facility] Comment on above: Performed By: #### H EMDF, MG3, BMP3 ####The performing lab is in the report. Potassium molar conc 4.6 mmol/L Normal 3.5-5.1 [facility] Comment on above: Performed By: #### H EMDF, MG3, BMP3 ####The performing lab is in the report. Sodium molar conc 138 mmol/L Normal 137-145 [facility] Comment on above: Performed By: #### H EMDF, MG3, BMP3 ####The performing lab is in the report. CR Chest Portableon 08-15-19 18 CR Chest Portable Patient Name: JAMES REYES [facility]: [id number] Diagnostic Radiology Exam Date/Time 08/14/2017 06:57:00 EDT Exam CR Chest Portable Ordering Physician STACEY CLEMONS Accession Number [id number] CPT4 Codes 43412 () Reason For Exam Post op open heart surgery Report CLINICAL INFORMATION: Dyspnea. Portable view of the chest at 0540 hours is provided and compared to a previous study dated August 13, 2017. FINDINGS: An introducer sheath remains in place via the right internal jugular vein. The patient is status post CABG with the usual sternal wires and surgical clips. The heart is enlarged. Bilateral infiltrates are unchanged. There is prominence of the central pulmonary vasculature. Mediastinal and bilateral chest tubes are noted. There is no pneumothorax. IMPRESSION: 1. Postoperative changes (CABG). 2. Stable bilateral infiltrates. 3. Prominence of the central pulmonary vasculature consistent with mild congestive heart failure/fluid overload. 4. Chest tubes without pneumothorax. 5. No significant change when compared to yesterday's study. Report Dictated on Final Dictated: 08/14/2017 5:59 am Dictating Physician: MD MCBRIDE JEFFREY Signed Date and Time: 08/14/2017 6:01 am Signed by: MD MCBRIDE JEFFREY Transcribed Date and Time: 08/14/2017 5:59 Normal [facility] Hemogramon 08-14-2017 Erythrocyte distribution width Auto Ratio (RBC) 14.9 % High 11.5-14.5 [facility] Comment on above: Performed By: #### H EMDF, MG3, BMP3 ####The performing lab is in the report. Hematocrit Auto Volume Fraction (Bld) 25.3 % Low 40.0-52.0 [facility] Comment on above: Performed By: #### H EMDF, MG3, BMP3 ####The performing lab is in the report. Hemoglobin mass conc (Bld) 8.4 g/dL Low 13.0-18.0 [facility] Comment on above: Performed By: #### H EMDF, MG3, BMP3 ####The performing lab is in the report. MCH Auto Entitic mass (RBC) 31.2 pg Normal 26.0-34.0 [facility] Comment on above: Performed By: #### H EMDF, MG3, BMP3 ####The performing lab is in the report. MCHC Auto mass conc (RBC) 33.0 % Normal 32.0-36.0 [facility] Comment on above: Performed By: #### H EMDF, MG3, BMP3 ####The performing lab is in the report. MCV Auto Entitic volume (RBC) 94.5 fL Normal 80.0-98.0 [facility] Comment on above: Performed By: #### H EMDF, MG3, BMP3 ####The performing lab is in the report. Platelet mean volume Auto Entitic volume (Bld) 9.0 fL Normal 7.4-10.4 [facility] Comment on above: Performed By: #### H EMDF, MG3, BMP3 ####The performing lab is in the report. Platelets Auto #/vol (Bld) 216 10*3/uL Normal 140-440 [facility] Comment on above: Performed By: #### Alfonso EMDF, MG3, BMP3 ####The performing lab is in the report. RBC Auto #/vol (Bld) 2.68 10*6/uL Low 4.40-5.90 [facility] Comment on above: Performed By: #### H RAFAELF, MG3, BMP3 ####The performing lab is in the report. WBC Auto #/vol (Bld) 4.2 10*3/uL Normal 3.6-10.7 [facility] Comment on above: Performed By: #### Alfonso EMDF, MG3, BMP3 ####The performing lab is in the report. Magnesiumon 08-14-2017 Magnesium mass conc 2.4 mg/dL High 1.6-2.3 [facility] Comment on above: Performed By: #### Alfonso EMDF, MG3, BMP3 ####The performing lab is in the report. Basic Metabolic Panelon 07-17 Calcium mass conc 8.2 mg/dL Low 8.4-10.2 [facility] Comment on above: Performed By: #### Alfonso EMDF, MG3, BMP3 ####The performing lab is in the report. Glucose mass conc 163 mg/dL High 70-100 [facility] Comment on above: Performed By: #### H EMDF, MG3, BMP3 ####The performing lab is in the report. Urea nitrogen mass conc 23 mg/dL High 7-20 [facility] Comment on above: Performed By: #### H EMDF, MG3, BMP3 ####The performing lab is in the report. Anion gap 3 molar conc 7 mmol/L Normal [facility] Comment on above: Performed By: #### H EMDF, MG3, BMP3 ####The performing lab is in the report. CO2 molar conc 24 mmol/L Normal 22-30 [facility] Comment on above: Performed By: #### H EMDF, MG3, BMP3 ####The performing lab is in the report. Creatinine mass conc 1.21 mg/dL Normal 0.52-1.25 [facility] Comment on above: Performed By: #### H EMDF, MG3, BMP3 ####The performing lab is in the report. GFR/1.73 sq M predicted among blacks MDRD vol rate/area (S/P/Bld) mL/min/{1.73_m2} Normal >60 [facility] Comment on above: Performed By: #### H EMDF, MG3, BMP3 ####The performing lab is in the report. GFR/1.73 sq M predicted among non-blacks MDRD vol rate/area (S/P/Bld) mL/min/{1.73_m2} Normal >60 [facility] Comment on above: Result Comment: Sour ce- MDRD equation with creatinine calibration to IDMS(NKDEP)eGFR not recommended for drug dose adjustment Performed By: #### H EMDF, MG3, BMP3 ####The performing lab is in the report. Potassium molar conc 4.6 mmol/L Normal 3.5-5.1 [facility] Comment on above: Performed By: #### H EMDF, MG3, BMP3 ####The performing lab is in the report. Chloride molar conc 102 mmol/L Normal 98-107 [facility] Comment on above: Performed By: #### H EMDF, MG3, BMP3 ####The performing lab is in the report. Sodium molar conc 134 mmol/L Low 137-145 [facility] Comment on above: Performed By: #### H EMDF, MG3, BMP3 ####The performing lab is in the report. CR Abdomen APon 08-13-2017 CR Abdomen AP Patient Name: JAMES REYES Diagnostic Radiology Exam Date/Time 08/13/2017 12:57:54 EDT Exam CR Abdomen AP Ordering Physician JARET BEEBE Accession Number [id number] CPT4 Codes 20332 () Reason For Exam right abdominal pain Report Abdomen: 08/13/2017. Clinical Information: Abdominal pain. Findings: A single supine view of the abdomen reveals a nonspecific nonobstructive bowel gas pattern. There is a moderate amount of fecal residue throughout the colon. Consider constipation There is no evidence of organomegaly. No abnormal calcifications are seen. The visualized bony structures are intact. Note is made that the study is limited due to patient body habitus. Report Dictated on Final Dictated: 08/13/2017 4:28 pm Dictating Physician: MD DEWITT RISA Signed Date and Time: 08/13/2017 4:29 pm Signed by: MD DEWITT RISA Transcribed Date and Time: 08/13/2017 4:28 Normal [facility] CR Chest Portableon 08-14-19 18 CR Chest Portable Patient Name: JAMES REYES Diagnostic Radiology Exam Date/Time 08/13/2017 06:36:36 EDT Exam CR Chest Portable Ordering Physician STACEY CLEMONS Accession Number [id number] CPT4 Codes 38324 () Reason For Exam Post op open heart surgery Report Examination: Portable chest Indication: Post op open heart surgery Comparison: Previous day Findings: The exam is limited secondary to portable technique and large patient body habitus. There is no significant interval change. Median sternotomy changes are present with cardiomegaly, left basilar chest tube and mediastinal chest tube. Basilar atelectasis or subtle infiltrates are present with suspected small pleural effusions. Follow-up is recommended. Impression: As above. Report Dictated on Final Dictated: 08/13/2017 8:05 am Dictating Physician: CAM REECE Signed Date and Time: 08/13/2017 8:05 am Signed by: CAM REECE Transcribed Date and Time: 08/13/2017 8:05 Normal [facility] Hemogramon 08-13-2017 Erythrocyte distribution width Auto Ratio (RBC) 14.9 % High 11.5-14.5 [facility] Comment on above: Performed By: #### H EMDF, MG3, BMP3 ####The performing lab is in the report. Hematocrit Auto Volume Fraction (Bld) 27.3 % Low 40.0-52.0 [facility] Comment on above: Performed By: #### H EMDF, MG3, BMP3 ####The performing lab is in the report. Hemoglobin mass conc (Bld) 8.9 g/dL Low 13.0-18.0 [facility] Comment on above: Performed By: #### H EMDF, MG3, BMP3 ####The performing lab is in the report. MCH Auto Entitic mass (RBC) 30.9 pg Normal 26.0-34.0 [facility] Comment on above: Performed By: #### H EMDF, MG3, BMP3 ####The performing lab is in the report. MCHC Auto mass conc (RBC) 32.5 % Normal 32.0-36.0 [facility] Comment on above: Performed By: #### H EMDF, MG3, BMP3 ####The performing lab is in the report. MCV Auto Entitic volume (RBC) 95.2 fL Normal 80.0-98.0 [facility] Comment on above: Performed By: #### H EMDF, MG3, BMP3 ####The performing lab is in the report. Platelet mean volume Auto Entitic volume (Bld) 8.9 fL Normal 7.4-10.4 [facility] Comment on above: Performed By: #### H EMDF, MG3, BMP3 ####The performing lab is in the report. Platelets Auto #/vol (Bld) 201 10*3/uL Normal 140-440 [facility] Comment on above: Performed By: #### H EMDF, MG3, BMP3 ####The performing lab is in the report. RBC Auto #/vol (Bld) 2.87 10*6/uL Low 4.40-5.90 [facility] Comment on above: Performed By: #### H EMDF, MG3, BMP3 ####The performing lab is in the report. WBC Auto #/vol (Bld) 5.9 10*3/uL Normal 3.6-10.7 [facility] Comment on above: Performed By: #### H EMDF, MG3, BMP3 ####The performing lab is in the report. Magnesiumon 08-13-2017 Magnesium mass conc 2.5 mg/dL High 1.6-2.3 [facility] Comment on above: Performed By: #### H EMDF, MG3, BMP3 ####The performing lab is in the report. Basic Metabolic Panelon 07-17 Calcium mass conc 8.1 mg/dL Low 8.4-10.2 [facility] Comment on above: Performed By: #### H EMDF, MG3, BMP3 ####The performing lab is in the report. Anion gap 3 molar conc 6 mmol/L Normal [facility] Comment on above: Performed By: #### H EMDF, MG3, BMP3 ####The performing lab is in the report. CO2 molar conc 24 mmol/L Normal 22-30 [facility] Comment on above: Performed By: #### H EMDF, MG3, BMP3 ####The performing lab is in the report. Creatinine mass conc 1.26 mg/dL High 0.52-1.25 [facility] Comment on above: Performed By: #### H EMDF, MG3, BMP3 ####The performing lab is in the report. GFR/1.73 sq M predicted among blacks MDRD vol rate/area (S/P/Bld) mL/min/{1.73_m2} Normal >60 [facility] Comment on above: Performed By: #### H EMDF, MG3, BMP3 ####The performing lab is in the report. GFR/1.73 sq M predicted among non-blacks MDRD vol rate/area (S/P/Bld) 58.2 mL/min/{1.73_m2} Normal >60 [facility] Comment on above: Result Comment: Sour ce- MDRD equation with creatinine calibration to IDMS(NKDEP)eGFR not recommended for drug dose adjustment Performed By: #### H EMDF, MG3, BMP3 ####The performing lab is in the report. Glucose mass conc 139 mg/dL High 70-100 [facility] Comment on above: Performed By: #### H EMDF, MG3, BMP3 ####The performing lab is in the report. Urea nitrogen mass conc 20 mg/dL Normal 7-20 [facility] Comment on above: Performed By: #### H EMDF, MG3, BMP3 ####The performing lab is in the report. Chloride molar conc 105 mmol/L Normal 98-107 [facility] Comment on above: Performed By: #### H EMDF, MG3, BMP3 ####The performing lab is in the report. Potassium molar conc 4.2 mmol/L Normal 3.5-5.1 [facility] Comment on above: Performed By: #### H EMDF, MG3, BMP3 ####The performing lab is in the report. Sodium molar conc 135 mmol/L Low 137-145 [facility] Comment on above: Performed By: #### H EMDF, MG3, BMP3 ####The performing lab is in the report. CR Chest Portableon 08-13-19 18 CR Chest Portable Patient Name: JAMES REYES Diagnostic Radiology Exam Date/Time 08/12/2017 13:18:29 EDT Exam CR Chest Portable Ordering Physician STACEY CLEMONS Accession Number [id number] CPT4 Codes 11586 () Reason For Exam Post op open heart surgery Report Examination: Portable chest Indication: Post op open heart surgery Comparison: Previous day Findings: There has been removal of the [place] catheter. Median sternotomy changes are present. There also does appear to be mediastinal and left basilar chest tube. The cardiac silhouette is mildly enlarged. Basilar atelectasis is present bilaterally. Question tiny pleural effusions. Follow-up is recommended to document resolution. Impression: As above. Report Dictated on Final Dictated: 08/12/2017 1:24 pm Dictating Physician: CAM REECE Signed Date and Time: 08/12/2017 1:24 pm Signed by: CAM REECE Transcribed Date and Time: 08/12/2017 1:24 Normal [facility] Glucose,Bedsideon 08-12-2017 Glucose mass conc 128 mg/dL High 70-100 [facility] Comment on above: Result Comment: Test performed by glucose meter. Results may be 10%-15% lowerthan serum/plasma values. (CLIA ID [id number]) Performed By: #### H EMDF, MG3, BMP3 ####The performing lab is in the report. Glucose mass conc 144 mg/dL High 70-100 [facility] Comment on above: Result Comment: Test performed by glucose meter. Results may be 10%-15% lowerthan serum/plasma values. (CLIA ID [id number]) Performed By: #### H EMDF, MG3, BMP3 ####The performing lab is in the report. Hemogram w/ Autodiffon 08-12 Abs Baso Cnt 0.0 10*3/uL Normal 0.0-0.2 [facility] Comment on above: Performed By: #### H EMDF, MG3, BMP3 ####The performing lab is in the report. Abs Neutrophile Cnt 7.6 10*3/uL High 1.8-7.0 [facility] Comment on above: Performed By: #### H EMDF, MG3, BMP3 ####The performing lab is in the report. Basophils/100 WBC Auto (Bld) 0.3 % Normal 0.0-2.0 [facility] Comment on above: Performed By: #### H EMDF, MG3, BMP3 ####The performing lab is in the report. Eosinophils Auto #/vol (Bld) 0.3 10*3/uL Normal 0.0-0.5 [facility] Comment on above: Performed By: #### H EMDF, MG3, BMP3 ####The performing lab is in the report. Eosinophils/100 WBC Auto (Bld) 2.9 % Normal 1.0-6.0 [facility] Comment on above: Performed By: #### H EMDF, MG3, BMP3 ####The performing lab is in the report. Erythrocyte distribution width Auto Ratio (RBC) 15.3 % High 11.5-14.5 [facility] Comment on above: Performed By: #### H EMDF, MG3, BMP3 ####The performing lab is in the report. Granulocytes/100 WBC (Bld) 82.7 % High 40.0-80.0 [facility] Comment on above: Performed By: #### H EMDF, MG3, BMP3 ####The performing lab is in the report. Hematocrit Auto Volume Fraction (Bld) 28.5 % Low 40.0-52.0 [facility] Comment on above: Performed By: #### H EMDF, MG3, BMP3 ####The performing lab is in the report. Hemoglobin mass conc (Bld) 9.4 g/dL Low 13.0-18.0 [facility] Comment on above: Performed By: #### H EMDF, MG3, BMP3 ####The performing lab is in the report. Lymphocytes Auto #/vol (Bld) 0.5 10*3/uL Low 1.0-4.3 [facility] Comment on above: Performed By: #### H EMDF, MG3, BMP3 ####The performing lab is in the report. Lymphocytes/100 WBC Auto (Bld) 5.2 % Low 20.0-40.0 [facility] Comment on above: Performed By: #### H EMDF, MG3, BMP3 ####The performing lab is in the report. MCH Auto Entitic mass (RBC) 31.4 pg Normal 26.0-34.0 [facility] Comment on above: Performed By: #### H EMDF, MG3, BMP3 ####The performing lab is in the report. MCHC Auto mass conc (RBC) 33.1 % Normal 32.0-36.0 [facility] Comment on above: Performed By: #### H EMDF, MG3, BMP3 ####The performing lab is in the report. MCV Auto Entitic volume (RBC) 94.7 fL Normal 80.0-98.0 [facility] Comment on above: Performed By: #### H EMDF, MG3, BMP3 ####The performing lab is in the report. Monocytes Auto #/vol (Bld) 0.8 10*3/uL Normal 0.0-0.8 [facility] Comment on above: Performed By: #### H EMDF, MG3, BMP3 ####The performing lab is in the report. Monocytes/100 WBC Auto (Bld) 8.9 % Normal 2.0-10.0 [facility] Comment on above: Performed By: #### H EMDF, MG3, BMP3 ####The performing lab is in the report. Platelet mean volume Auto Entitic volume (Bld) 9.1 fL Normal 7.4-10.4 [facility] Comment on above: Performed By: #### H EMDF, MG3, BMP3 ####The performing lab is in the report. Platelets Auto #/vol (Bld) 214 10*3/uL Normal 140-440 [facility] Comment on above: Performed By: #### H EMDF, MG3, BMP3 ####The performing lab is in the report. RBC Auto #/vol (Bld) 3.01 10*6/uL Low 4.40-5.90 [facility] Comment on above: Performed By: #### H EMDF, MG3, BMP3 ####The performing lab is in the report. WBC Auto #/vol (Bld) 9.2 10*3/uL Normal 3.6-10.7 [facility] Comment on above: Performed By: #### H EMDF, MG3, BMP3 ####The performing lab is in the report. Leukodepleted Red Cellson Leukodepleted Red Cells Leukodepleted Re d Cells: [id number] released 08/12/17 05:29 PKHUnit Blood Type: AUnit Blood Rh: POSBlood Product Code: KQ1Zmum Number: [id number] Status: released Barcoded Unit Number: [id number] Product Code: = Normal [facility] Comment on above: Performed By: #### M G3, BMP3 ####The performing lab is in the report. Magnesiumon 08-12-2017 Magnesium mass conc 2.5 mg/dL High 1.6-2.3 [facility] Comment on above: Performed By: #### H MELANIE MG3, BMP3 ####The performing lab is in the report. Prothrombin Timeon 8 INR Coag RelTime (PPP) 1.1 {INR} Normal 0.9-1.1 [facility] Comment on above: Result Comment: Lux mmended Anticoagulant Therapy:SEE BELOW----- INR of 2.0 - 3.0 :- Prophylaxis of Venous Thrombosis (high-risk surgery)- Treatment of Venous Thrombosis- Treatment of Pulmonary Embolism (Includes tissue heartvalves, Acute Myocardial Infarction to prevent systemicembolism, Valvular Heart Disease, and Atrial Fibrillation)----- INR of 2.5 - 3.5 :- Mechanical Prosthetic Valves (high risk)- If oral anticoagulant therapy is used to preventMyocardial Infarction Performed By: #### H MELANIE MG3, BMP3 ####The performing lab is in the report. Prothrombin time (PT) Coag time (PPP) 11.7 s Normal 9.0-12.0 [facility] Comment on above: Result Comment: . Performed By: #### H RAFAELF MG3, BMP3 ####The performing lab is in the report. Arterial Blood Gaseson 08-11 HCO3 molar conc (Bld) 24.6 mmol/L Normal 21.0-25.0 [facility] Comment on above: Performed By: #### A BG ####The performing lab is in the report. Hemoglobin mass conc (Bld) 11.1 g/dL Normal [facility] Comment on above: Performed By: #### A BG ####The performing lab is in the report. Oxygen ppres (BldA) 103.3 mm[Hg] High 80.0-100.0 [facility] Comment on above: Performed By: #### A BG ####The performing lab is in the report. Oxygen saturation in Blood 97.5 % Normal 95.0-100.0 [facility] Comment on above: Performed By: #### A BG ####The performing lab is in the report. pCO2 47.1 mm[Hg] High 35.0-45.0 [facility] Comment on above: Performed By: #### A BG ####The performing lab is in the report. pH (Bld) 7.336 [pH] Low 7.350-7.450 [facility] Comment on above: Performed By: #### A BG ####The performing lab is in the report. Std Base Excess -1.4 mmol/L Normal -3.0-3.0 [facility] Comment on above: Performed By: #### A BG ####The performing lab is in the report. TCO2 26.1 mmol/L Normal 23.0-27.0 [facility] Comment on above: Performed By: #### A BG ####The performing lab is in the report. FIO2 No data Normal [facility] Comment on above: Performed By: #### A BG ####The performing lab is in the report. Basic Metabolic Panelon -2 Calcium mass conc 8.4 mg/dL Normal 8.4-10.2 [facility] Comment on above: Performed By: #### P T, HEMDF, MG3, BMP3 ####The performing lab is in the report. Anion gap 3 molar conc 8 mmol/L Normal [facility] Comment on above: Performed By: #### P T, HEMDF, MG3, BMP3 ####The performing lab is in the report. CO2 molar conc 26 mmol/L Normal 22-30 [facility] Comment on above: Performed By: #### P T, HEMDF, MG3, BMP3 ####The performing lab is in the report. Creatinine mass conc 0.89 mg/dL Normal 0.52-1.25 [facility] Comment on above: Performed By: #### P T, HEMDF, MG3, BMP3 ####The performing lab is in the report. GFR/1.73 sq M predicted among blacks MDRD vol rate/area (S/P/Bld) mL/min/{1.73_m2} Normal >60 [facility] Comment on above: Performed By: #### P T, HEMDF, MG3, BMP3 ####The performing lab is in the report. GFR/1.73 sq M predicted among non-blacks MDRD vol rate/area (S/P/Bld) mL/min/{1.73_m2} Normal >60 [facility] Comment on above: Result Comment: Sour ce- MDRD equation with creatinine calibration to IDMS(NKDEP)eGFR not recommended for drug dose adjustment Performed By: #### P T, HEMDF, MG3, BMP3 ####The performing lab is in the report. Glucose mass conc 80 mg/dL Normal 70-100 [facility] Comment on above: Performed By: #### P T, HEMDF, MG3, BMP3 ####The performing lab is in the report. Urea nitrogen mass conc 15 mg/dL Normal 7-20 [facility] Comment on above: Performed By: #### P T, HEMDF, MG3, BMP3 ####The performing lab is in the report. Chloride molar conc 111 mmol/L High 98-107 [facility] Comment on above: Performed By: #### P T, HEMDF, MG3, BMP3 ####The performing lab is in the report. Potassium molar conc 4.0 mmol/L Normal 3.5-5.1 [facility] Comment on above: Performed By: #### P T, HEMDF, MG3, BMP3 ####The performing lab is in the report. Sodium molar conc 144 mmol/L Normal 137-145 [facility] Comment on above: Performed By: #### P T, HEMDF, MG3, BMP3 ####The performing lab is in the report. CR Chest Portableon 08-12-19 18 CR Chest Portable Patient Name: JAMES REYES Diagnostic Radiology Exam Date/Time 08/11/2017 05:30:09 EDT Exam CR Chest Portable Ordering Physician STACEY CLEMONS Accession Number [id number] CPT4 Codes 84654 () Reason For Exam Post op open heart surgery Report Portable chest Clinical: Postop open-heart surgery COMPARISON: August 10, 2017 Heart size is stable. Median sternotomy changes. Mediastinal drainage catheter and left basilar chest tube remain in place. Endotracheal tube and feeding tube have been removed since the prior study. The right sided internal jugular distribution [place]vel[place] catheter remains, with the tip overlying the proximal right pulmonary artery distribution. Bibasilar atelectatic changes without sizable pleural effusion or pneumothorax. Osseous degenerative changes. Report Dictated on Final Dictated: 08/11/2017 7:55 am Dictating Physician: MAYO VELASQUEZ Signed Date and Time: 08/11/2017 7:56 am Signed by: MAYO VELASQUEZ Transcribed Date and Time: 08/11/2017 7:55 Normal [facility] Glucose,Bedsideon 08-11-2017 Glucose mass conc 134 mg/dL High 70-100 [facility] Comment on above: Result Comment: Test performed by glucose meter. Results may be 10%-15% lowerthan serum/plasma values. (CLIA ID [id number]) Performed By: #### B GLU ####The performing lab is in the report. Hemogram w/ Autodiffon 08-11 Abs Baso Cnt 0.0 10*3/uL [facility] 0[facility]0-0.2 [facility] Comment on above: Performed By: #### P T, HEMDF, MG3, BMP3 ####The performing lab is in the report. Abs Neutrophile Cnt 7.9 10*3/uL High 1.8-7.0 [facility] Comment on above: Performed By: #### P T, HEMDF, MG3, BMP3 ####The performing lab is in the report. Basophils/100 WBC Auto (Bld) 0.3 % Normal 0.0-2.0 [facility] Comment on above: Performed By: #### P T, HEMDF, MG3, BMP3 ####The performing lab is in the report. Eosinophils Auto #/vol (Bld) 0.0 10*3/uL Normal 0.0-0.5 [facility] Comment on above: Performed By: #### P T, HEMDF, MG3, BMP3 ####The performing lab is in the report. Eosinophils/100 WBC Auto (Bld) 0.1 % Low 1.0-6.0 [facility] Comment on above: Performed By: #### P T, HEMDF, MG3, BMP3 ####The performing lab is in the report. Erythrocyte distribution width Auto Ratio (RBC) 15.1 % High 11.5-14.5 [facility] Comment on above: Performed By: #### P T, HEMDF, MG3, BMP3 ####The performing lab is in the report. Granulocytes/100 WBC (Bld) 88.2 % High 40.0-80.0 [facility] Comment on above: Performed By: #### P T, HEMDF, MG3, BMP3 ####The performing lab is in the report. Hematocrit Auto Volume Fraction (Bld) 31.7 % Low 40.0-52.0 [facility] Comment on above: Performed By: #### P T, HEMDF, MG3, BMP3 ####The performing lab is in the report. Hemoglobin mass conc (Bld) 10.6 g/dL Low 13.0-18.0 [facility] Comment on above: Performed By: #### P T, HEMDF, MG3, BMP3 ####The performing lab is in the report. Lymphocytes Auto #/vol (Bld) 0.2 10*3/uL Low 1.0-4.3 [facility] Comment on above: Performed By: #### P T, HEMDF, MG3, BMP3 ####The performing lab is in the report. Lymphocytes/100 WBC Auto (Bld) 2.3 % Low 20.0-40.0 [facility] Comment on above: Performed By: #### P T, HEMDF, MG3, BMP3 ####The performing lab is in the report. MCH Auto Entitic mass (RBC) 31.5 pg Normal 26.0-34.0 [facility] Comment on above: Performed By: #### P T, HEMDF, MG3, BMP3 ####The performing lab is in the report. MCHC Auto mass conc (RBC) 33.4 % Normal 32.0-36.0 [facility] Comment on above: Performed By: #### P T, HEMDF, MG3, BMP3 ####The performing lab is in the report. MCV Auto Entitic volume (RBC) 94.2 fL Normal 80.0-98.0 [facility] Comment on above: Performed By: #### P T, HEMDF, MG3, BMP3 ####The performing lab is in the report. Monocytes Auto #/vol (Bld) 0.8 10*3/uL Normal 0.0-0.8 [facility] Comment on above: Performed By: #### P T, HEMDF, MG3, BMP3 ####The performing lab is in the report. Monocytes/100 WBC Auto (Bld) 9.1 % Normal 2.0-10.0 [facility] Comment on above: Performed By: #### P T, HEMDF, MG3, BMP3 ####The performing lab is in the report. Platelet mean volume Auto Entitic volume (Bld) 8.7 fL Normal 7.4-10.4 [facility] Comment on above: Performed By: #### P T, HEMDF, MG3, BMP3 ####The performing lab is in the report. Platelets Auto #/vol (Bld) 216 10*3/uL Normal 140-440 [facility] Comment on above: Performed By: #### P T, HEMDF, MG3, BMP3 ####The performing lab is in the report. RBC Auto #/vol (Bld) 3.37 10*6/uL Low 4.40-5.90 [facility] Comment on above: Performed By: #### P T, HEMDF, MG3, BMP3 ####The performing lab is in the report. WBC Auto #/vol (Bld) 8.9 10*3/uL Normal 3.6-10.7 [facility] Comment on above: Performed By: #### P T, HEMDF, MG3, BMP3 ####The performing lab is in the report. Magnesiumon 08-11-2017 Magnesium mass conc 3.0 mg/dL High 1.6-2.3 [facility] Comment on above: Performed By: #### P T, HEMDF, MG3, BMP3 ####The performing lab is in the report. Prothrombin Timeon 8 INR Coag RelTime (PPP) 1.0 {INR} Normal 0.9-1.1 [facility] Comment on above: Result Comment: Lux mmended Anticoagulant Therapy:SEE BELOW----- INR of 2.0 - 3.0 :- Prophylaxis of Venous Thrombosis (high-risk surgery)- Treatment of Venous Thrombosis- Treatment of Pulmonary Embolism (Includes tissue heartvalves, Acute Myocardial Infarction to prevent systemicembolism, Valvular Heart Disease, and Atrial Fibrillation)----- INR of 2.5 - 3.5 :- Mechanical Prosthetic Valves (high risk)- If oral anticoagulant therapy is used to preventMyocardial Infarction Performed By: #### P T, HEMDF, MG3, BMP3 ####The performing lab is in the report. Prothrombin time (PT) Coag time (PPP) 10.4 s Normal 9.0-12.0 [facility] Comment on above: Result Comment: . Performed By: #### P T, HEMDF, MG3, BMP3 ####The performing lab is in the report. APTTon 08-10-2017 aPTT Coag time (Bld) 25.0 s Normal 20.0-30.5 [facility] Comment on above: Result Comment: NOTE : The therapeutic time for Heparin anticoagulation,based on Xa activity inhibition, is an APTT of 46-80seconds. Performed By: #### A PTT ####The performing lab is in the report. Arterial Blood Gaseson 08-10 HCO3 molar conc (Bld) 24.1 mmol/L Normal 21.0-25.0 [facility] Comment on above: Performed By: #### A BG ####The performing lab is in the report. Hemoglobin mass conc (Bld) 11.2 g/dL Normal Screenly [facility] Comment on above: Performed By: #### A BG ####The performing lab is in the report. Oxygen ppres (BldA) 85.1 mm[Hg] Normal 80.0-100.0 [facility] Comment on above: Performed By: #### A BG ####The performing lab is in the report. Oxygen saturation in Blood 95.5 % Normal 95.0-100.0 [facility] Comment on above: Performed By: #### A BG ####The performing lab is in the report. pCO2 46.4 mm[Hg] High 35.0-45.0 [facility] Comment on above: Performed By: #### A BG ####The performing lab is in the report. pH (Bld) 7.333 [pH] Low 7.350-7.450 [facility] Comment on above: Performed By: #### A BG ####The performing lab is in the report. Std Base Excess -1.9 mmol/L Normal -3.0-3.0 [facility] Comment on above: Performed By: #### A BG ####The performing lab is in the report. FIO2 No data Normal [facility] Comment on above: Performed By: #### A BG ####The performing lab is in the report. HCO3 molar conc (Bld) 24.2 mmol/L Normal 21.0-25.0 [facility] Comment on above: Performed By: #### M G3, BMP3 ####The performing lab is in the report. Hemoglobin mass conc (Bld) 11.4 g/dL [facility] Comment on above: Performed By: #### M G3, BMP3 ####The performing lab is in the report. Oxygen ppres (BldA) 147.0 mm[Hg] High 80.0-100.0 [facility] Comment on above: Performed By: #### M G3, BMP3 ####The performing lab is in the report. Oxygen saturation in Blood 98.8 % Normal 95.0-100.0 [facility] Comment on above: Performed By: #### M G3, BMP3 ####The performing lab is in the report. pCO2 42.3 mm[Hg] Normal 35.0-45.0 [facility] Comment on above: Performed By: #### M G3, BMP3 ####The performing lab is in the report. pH (Bld) 7.376 [pH] Normal 7.350-7.450 [facility] Comment on above: Performed By: #### M G3, BMP3 ####The performing lab is in the report. Std Base Excess -1.0 mmol/L Normal -3.0-3.0 [facility] Comment on above: Performed By: #### M G3, BMP3 ####The performing lab is in the report. TCO2 25.5 mmol/L Normal 23.0-27.0 [facility] Comment on above: Performed By: #### A BG ####The performing lab is in the report. Performed By: #### M G3, BMP3 ####The performing lab is in the report. FIO2 No data Normal [facility] Comment on above: Performed By: #### M G3, BMP3 ####The performing lab is in the report. Basic Metabolic Panelon 04-2 Anion gap 3 molar conc 9 mmol/L Normal [facility] Comment on above: Performed By: #### I CA, HEMOG, PT, FIBGN, MG3, BMP3, PHOS3 ####The performing lab is in the report. Calcium mass conc 8.5 mg/dL Normal 8.4-10.2 [facility] Comment on above: Performed By: #### I CA, HEMOG, PT, FIBGN, MG3, BMP3, PHOS3 ####The performing lab is in the report. CO2 molar conc 25 mmol/L Normal 22-30 [facility] Comment on above: Performed By: #### I CA, HEMOG, PT, FIBGN, MG3, BMP3, PHOS3 ####The performing lab is in the report. Glucose mass conc 111 mg/dL High 70-100 [facility] Comment on above: Performed By: #### I CA, HEMOG, PT, FIBGN, MG3, BMP3, PHOS3 ####The performing lab is in the report. Urea nitrogen mass conc 17 mg/dL Normal 7-20 [facility] Comment on above: Performed By: #### I CA, HEMOG, PT, FIBGN, MG3, BMP3, PHOS3 ####The performing lab is in the report. Creatinine mass conc 0.93 mg/dL Normal 0.52-1.25 [facility] Comment on above: Performed By: #### I CA, HEMOG, PT, FIBGN, MG3, BMP3, PHOS3 ####The performing lab is in the report. GFR/1.73 sq M predicted among blacks MDRD vol rate/area (S/P/Bld) mL/min/{1.73_m2} Normal >60 [facility] Comment on above: Performed By: #### I CA, HEMOG, PT, FIBGN, MG3, BMP3, PHOS3 ####The performing lab is in the report. GFR/1.73 sq M predicted among non-blacks MDRD vol rate/area (S/P/Bld) mL/min/{1.73_m2} Normal >60 [facility] Comment on above: Result Comment: Sour ce- MDRD equation with creatinine calibration to IDMS(NKDEP)eGFR not recommended for drug dose adjustment Performed By: #### I CA, HEMOG, PT, FIBGN, MG3, BMP3, PHOS3 ####The performing lab is in the report. Potassium molar conc 4.2 mmol/L Normal 3.5-5.1 [facility] [facility] Comment on above: Performed By: #### I CA, HEMOG, PT, FIBGN, MG3, BMP3, PHOS3 ####The performing lab is in the report. Sodium molar conc 145 mmol/L Normal 137-145 [facility] Comment on above: Performed By: #### I CA, HEMOG, PT, FIBGN, MG3, BMP3, PHOS3 ####The performing lab is in the report. Chloride molar conc 111 mmol/L High 98-107 [facility] Comment on above: Performed By: #### I CA, HEMOG, PT, FIBGN, MG3, BMP3, PHOS3 ####The performing lab is in the report. Calcium mass conc 8.2 mg/dL Low 8.4-10.2 [facility] Comment on above: Performed By: #### M G3, BMP3 ####The performing lab is in the report. Anion gap 3 molar conc 5 mmol/L Normal [facility] Comment on above: Performed By: #### M G3, BMP3 ####The performing lab is in the report. CO2 molar conc 27 mmol/L Normal 22-30 [facility] Comment on above: Performed By: #### M G3, BMP3 ####The performing lab is in the report. Creatinine mass conc 0.93 mg/dL Normal 0.52-1.25 [facility] Comment on above: Performed By: #### M G3, BMP3 ####The performing lab is in the report. GFR/1.73 sq M predicted among blacks MDRD vol rate/area (S/P/Bld) mL/min/{1.73_m2} Normal >60 [facility] Comment on above: Performed By: #### M G3, BMP3 ####The performing lab is in the report. GFR/1.73 sq M predicted among non-blacks MDRD vol rate/area (S/P/Bld) mL/min/{1.73_m2} Normal >60 [facility] Comment on above: Result Comment: Sour ce- MDRD equation with creatinine calibration to IDMS(NKDEP)eGFR not recommended for drug dose adjustment Performed By: #### M G3, BMP3 ####The performing lab is in the report. Glucose mass conc 123 mg/dL High 70-100 [facility] Comment on above: Performed By: #### M G3, BMP3 ####The performing lab is in the report. Urea nitrogen mass conc 15 mg/dL Normal 7-20 [facility] Comment on above: Performed By: #### Ap G3, BMP3 ####The performing lab is in the report. Chloride molar conc 111 mmol/L High 98-107 [facility] Comment on above: Performed By: #### M G3, BMP3 ####The performing lab is in the report. Potassium molar conc 3.7 mmol/L Normal 3.5-5.1 [facility] Comment on above: Performed By: #### Ap G3, BMP3 ####The performing lab is in the report. Sodium molar conc 143 mmol/L Normal 137-145 [facility] Comment on above: Performed By: #### Ap G3, BMP3 ####The performing lab is in the report. Anion gap 3 molar conc 9 mmol/L Normal [facility] Comment on above: Performed By: #### Ap G3, BMP3 ####The performing lab is in the report. Calcium mass conc 9.3 mg/dL Normal 8.4-10.2 [facility] Comment on above: Performed By: #### Ap G3, BMP3 ####The performing lab is in the report. CO2 molar conc 27 mmol/L Normal 22-30 [facility] Comment on above: Performed By: #### Ap G3, BMP3 ####The performing lab is in the report. Glucose mass conc 161 mg/dL High 70-100 [facility] Comment on above: Performed By: #### Ap G3, BMP3 ####The performing lab is in the report. Urea nitrogen mass conc 18 mg/dL Normal 7-20 [facility] Comment on above: Performed By: #### Ap G3, BMP3 ####The performing lab is in the report. Creatinine mass conc 0.88 mg/dL Normal 0.52-1.25 [facility] Comment on above: Performed By: #### Ap G3, BMP3 ####The performing lab is in the report. GFR/1.73 sq M predicted among blacks MDRD vol rate/area (S/P/Bld) mL/min/{1.73_m2} Normal >60 [facility] Comment on above: Performed By: #### M G3, BMP3 ####The performing lab is in the report. GFR/1.73 sq M predicted among non-blacks MDRD vol rate/area (S/P/Bld) mL/min/{1.73_m2} Normal >60 [facility] Comment on above: Result Comment: Sour ce- MDRD equation with creatinine calibration to IDMS(NKDEP)eGFR not recommended for drug dose adjustment Performed By: #### M G3, BMP3 ####The performing lab is in the report. Potassium molar conc 4.2 mmol/L Normal 3.5-5.1 [facility] Comment on above: Performed By: #### M G3, BMP3 ####The performing lab is in the report. Sodium molar conc 143 mmol/L Normal 137-145 [facility] Comment on above: Performed By: #### M G3, BMP3 ####The performing lab is in the report. Chloride molar conc 107 mmol/L Normal 98-107 [facility] Comment on above: Performed By: #### M G3, BMP3 ####The performing lab is in the report. CR Chest Portableon 08-11-19 18 CR Chest Portable Patient Name: JAMES REYES Diagnostic Radiology Exam Date/Time 08/10/2017 14:26:03 EDT Exam CR Chest Portable Ordering Physician STACEY CLEMONS Accession Number [id number] CPT4 Codes 00068 () Reason For Exam Post op open heart surgery Report CLINICAL INFORMATION: Open heart surgery. Intubation. Portable view of the chest at 1345 hours is provided and compared to a previous study dated August 06, 2017. FINDINGS: An endotracheal tube is now seen with its tip approximately 5 cm above the greg. An enteric tube extends into the stomach. A [place] catheter is in place via the right internal jugular vein. The distal tip is in the proximal right pulmonary artery. The patient is now status post median sternotomy. The heart size is normal. Mediastinal left-sided chest tubes are in place. There is no pneumothorax. IMPRESSION: 1. New endotracheal tube in satisfactory position. 2. Chest tubes without pneumothorax. 3. No significant infiltrates. Report Dictated on Workstation: [id number] Final Dictated: 08/10/2017 3:36 pm Dictating Physician: MD MCBRIDE JEFFREY Signed Date and Time: 08/10/2017 3:38 pm Signed by: MD MCBRIDE JEFFREY Transcribed Date and Time: 08/10/2017 3:36 Normal [facility] CULTURE STAPH AUREUSon 08-10 CULTURE STAPH AUREUS CULTURE STAPH AUREU S --> Status: F No Staphylococcus aureus isolated. Normal [facility] Comment on above: Performed By: #### H EMDF, MG3, BMP3 ####The performing lab is in the report. Calcium,Ionizedon 08-10-2017 Ionized Ca,Measured 4.10 mg/dL Low 4.30-5.20 [facility] Comment on above: Performed By: #### M G3, BMP3 ####The performing lab is in the report. pH, Ionized Calcium 7.37 Normal 7.31-7.46 [facility] Comment on above: Performed By: #### M G3, BMP3 ####The performing lab is in the report. pH, Ionized Calcium 7.40 Normal 7.31-7.46 [facility] Comment on above: Performed By: #### M G3, BMP3 ####The performing lab is in the report. Ionized Ca,Measured 4.50 mg/dL Normal 4.30-5.20 [facility] Comment on above: Performed By: #### M G3, BMP3 ####The performing lab is in the report. Fibrinogenon 08-10-2017 Fibrinogen 359 mg/dL Normal 200-400 [facility] Comment on above: Performed By: #### M G3, BMP3 ####The performing lab is in the report. Hemogramon 08-10-2017 Erythrocyte distribution width Auto Ratio (RBC) 14.7 % High 11.5-14.5 [facility] Comment on above: Performed By: #### M G3, BMP3 ####The performing lab is in the report. Hematocrit Auto Volume Fraction (Bld) 32.7 % Low 40.0-52.0 [facility] Comment on above: Performed By: #### M G3, BMP3 ####The performing lab is in the report. Hemoglobin mass conc (Bld) 10.7 g/dL Low 13.0-18.0 [facility] Comment on above: Performed By: #### Ap G3, BMP3 ####The performing lab is in the report. MCH Auto Entitic mass (RBC) 31.1 pg Normal 26.0-34.0 [facility] Comment on above: Performed By: #### Ap G3, BMP3 ####The performing lab is in the report. MCHC Auto mass conc (RBC) 32.8 % Normal 32.0-36.0 [facility] Comment on above: Performed By: #### Ap G3, BMP3 ####The performing lab is in the report. MCV Auto Entitic volume (RBC) 94.7 fL Normal 80.0-98.0 [facility] Comment on above: Performed By: #### Ap G3, BMP3 ####The performing lab is in the report. Platelet mean volume Auto Entitic volume (Bld) 8.5 fL Normal 7.4-10.4 [facility] Comment on above: Performed By: #### Ap G3, BMP3 ####The performing lab is in the report. Platelets Auto #/vol (Bld) 224 10*3/uL Normal 140-440 [facility] Comment on above: Performed By: #### Ap G3, BMP3 ####The performing lab is in the report. RBC Auto #/vol (Bld) 3.45 10*6/uL Low 4.40-5.90 [facility] Comment on above: Performed By: #### Ap G3, BMP3 ####The performing lab is in the report. WBC Auto #/vol (Bld) 9.7 10*3/uL Normal 3.6-10.7 [facility] Comment on above: Performed By: #### Ap G3, BMP3 ####The performing lab is in the report. Erythrocyte distribution width Auto Ratio (RBC) 15.0 % High 11.5-14.5 [facility] Comment on above: Performed By: #### Ap G3, BMP3 ####The performing lab is in the report. Hematocrit Auto Volume Fraction (Bld) 32.9 % Low 40.0-52.0 [facility] Comment on above: Performed By: #### Ap G3, BMP3 ####The performing lab is in the report. Hemoglobin mass conc (Bld) 10.9 g/dL Low 13.0-18.0 [facility] Comment on above: Performed By: #### M G3, BMP3 ####The performing lab is in the report. MCH Auto Entitic mass (RBC) 31.2 pg Normal 26.0-34.0 [facility] Comment on above: Performed By: #### M G3, BMP3 ####The performing lab is in the report. MCHC Auto mass conc (RBC) 33.0 % Normal 32.0-36.0 [facility] Comment on above: Performed By: #### Ap G3, BMP3 ####The performing lab is in the report. MCV Auto Entitic volume (RBC) 94.3 fL Normal 80.0-98.0 [facility] Comment on above: Performed By: #### Ap G3, BMP3 ####The performing lab is in the report. Platelet mean volume Auto Entitic volume (Bld) 8.5 fL Normal 7.4-10.4 [facility] Comment on above: Performed By: #### Ap G3, BMP3 ####The performing lab is in the report. Platelets Auto #/vol (Bld) 199 10*3/uL Normal 140-440 [facility] Comment on above: Performed By: #### Ap G3, BMP3 ####The performing lab is in the report. RBC Auto #/vol (Bld) 3.49 10*6/uL Low 4.40-5.90 [facility] Comment on above: Performed By: #### Ap G3, BMP3 ####The performing lab is in the report. WBC Auto #/vol (Bld) 9.8 10*3/uL Normal 3.6-10.7 [facility] Comment on above: Performed By: #### M G3, BMP3 ####The performing lab is in the report. Hemogram w/ Autodiffon 08-10 Abs Baso Cnt 0.1 10*3/uL Normal 0.0-0.2 [facility] Comment on above: Performed By: #### M G3, BMP3 ####The performing lab is in the report. Abs Neutrophile Cnt 2.5 10*3/uL Normal 1.8-7.0 [facility] Comment on above: Performed By: #### M G3, BMP3 ####The performing lab is in the report. Basophils/100 WBC Auto (Bld) 1.2 % Normal 0.0-2.0 [facility] Comment on above: Performed By: #### M G3, BMP3 ####The performing lab is in the report. Eosinophils Auto #/vol (Bld) 0.2 10*3/uL Normal 0.0-0.5 [facility] Comment on above: Performed By: #### M G3, BMP3 ####The performing lab is in the report. Eosinophils/100 WBC Auto (Bld) 3.8 % Normal 1.0-6.0 [facility] Comment on above: Performed By: #### M G3, BMP3 ####The performing lab is in the report. Erythrocyte distribution width Auto Ratio (RBC) 14.8 % High 11.5-14.5 [facility] Comment on above: Performed By: #### M G3, BMP3 ####The performing lab is in the report. Granulocytes/100 WBC (Bld) 56.4 % Normal 40.0-80.0 [facility] Comment on above: Performed By: #### M G3, BMP3 ####The performing lab is in the report. Hematocrit Auto Volume Fraction (Bld) 38.4 % Low 40.0-52.0 [facility] Comment on above: Performed By: #### M G3, BMP3 ####The performing lab is in the report. Hemoglobin mass conc (Bld) 12.5 g/dL Low 13.0-18.0 [facility] Comment on above: Performed By: #### M G3, BMP3 ####The performing lab is in the report. Lymphocytes Auto #/vol (Bld) 1.3 10*3/uL Normal 1.0-4.3 [facility] Comment on above: Performed By: #### Ap G3, BMP3 ####The performing lab is in the report. Lymphocytes/100 WBC Auto (Bld) 29.9 % Normal 20.0-40.0 [facility] Comment on above: Performed By: #### Ap G3, BMP3 ####The performing lab is in the report. MCH Auto Entitic mass (RBC) 31.0 pg Normal 26.0-34.0 [facility] Comment on above: Performed By: #### Ap G3, BMP3 ####The performing lab is in the report. MCHC Auto mass conc (RBC) 32.7 % Normal 32.0-36.0 [facility] Comment on above: Performed By: #### Ap G3, BMP3 ####The performing lab is in the report. MCV Auto Entitic volume (RBC) 94.7 fL Normal 80.0-98.0 [facility] Comment on above: Performed By: #### Ap Sanchez, BMP3 ####The performing lab is in the report. Monocytes Auto #/vol (Bld) 0.4 10*3/uL Normal 0.0-0.8 [facility] Comment on above: Performed By: #### Ap G3, BMP3 ####The performing lab is in the report. Monocytes/100 WBC Auto (Bld) 8.7 % Normal 2.0-10.0 [facility] Comment on above: Performed By: #### Ap G3, BMP3 ####The performing lab is in the report. Platelet mean volume Auto Entitic volume (Bld) 8.7 fL Normal 7.4-10.4 [facility] Comment on above: Performed By: #### Ap G3, BMP3 ####The performing lab is in the report. Platelets Auto #/vol (Bld) 281 10*3/uL Normal 140-440 [facility] Comment on above: Performed By: #### Ap G3, BMP3 ####The performing lab is in the report. RBC Auto #/vol (Bld) 4.05 10*6/uL Low 4.40-5.90 [facility] Comment on above: Performed By: #### M G3, BMP3 ####The performing lab is in the report. WBC Auto #/vol (Bld) 4.4 10*3/uL Normal 3.6-10.7 [facility] Comment on above: Performed By: #### M G3, BMP3 ####The performing lab is in the report. Magnesiumon 08-10-2017 Magnesium mass conc 3.2 mg/dL High 1.6-2.3 [facility] Comment on above: Performed By: #### M G3, BMP3 ####The performing lab is in the report. Magnesium mass conc 3.0 mg/dL High 1.6-2.3 [facility] Comment on above: Performed By: #### M G3, BMP3 ####The performing lab is in the report. Magnesium mass conc 2.1 mg/dL Normal 1.6-2.3 [facility] Comment on above: Performed By: #### M G3, BMP3 ####The performing lab is in the report. PF Full PFT Studyon 08-11-19 18 PF Full PFT Study Patient Name: JAMES REYES Pulmonary Function Exam Date/Time 08/09/2017 15:19:54 EDT Exam PF Full PFT Study Ordering Physician STACEY CLEMONS Accession Number [id number] Reason For Exam Chest pain Report Diffusion capacity 65 percent predicted. Total lung total lung capacity is 100 percent predicted, 7.7 L. Flow volume loop is consistent with possible extrathoracic vertebral airway obstruction with truncation of the is between limb. Vital capacity is 85 percent predicted, 4.3 L. FEV1 is 87 percent predicted, 3.3 L. FEV1 FVC ratio 78 percent. Impression normal spirometry, flow volume loop possibly consistent with extrathoracic variable airway obstruction. Reduced diffusion capacity possibly from COPD. Normal lung volumes Report Dictated on Final Dictated: 08/10/2017 4:40 pm Dictating Physician: MD WHITFIELD PAUL Signed Date and Time: 08/10/2017 4:41 pm Signed by: MD WHITFIELD PAUL Transcribed Date and Time: 08/10/2017 4:40 Normal [facility] Phosphoruson 08-10-2017 Phosphate mass conc 2.9 mg/dL Normal 2.5-4.5 [facility] Comment on above: Performed By: #### I CA, HEMOG, PT, FIBGN, MG3, BMP3, PHOS3 ####The performing lab is in the report. Phosphate mass conc 2.6 mg/dL Normal 2.5-4.5 [facility] Comment on above: Performed By: #### M G3, BMP3 ####The performing lab is in the report. Prothrombin Timeon 8 INR Coag RelTime (PPP) 1.0 {INR} Normal 0.9-1.1 [facility] Comment on above: Result Comment: Lux mmended Anticoagulant Therapy:SEE BELOW----- INR of 2.0 - 3.0 :- Prophylaxis of Venous Thrombosis (high-risk surgery)- Treatment of Venous Thrombosis- Treatment of Pulmonary Embolism (Includes tissue heartvalves, Acute Myocardial Infarction to prevent systemicembolism, Valvular Heart Disease, and Atrial Fibrillation)----- INR of 2.5 - 3.5 :- Mechanical Prosthetic Valves (high risk)- If oral anticoagulant therapy is used to preventMyocardial Infarction Performed By: #### M G3, BMP3 ####The performing lab is in the report. Prothrombin time (PT) Coag time (PPP) 10.7 s Normal 9.0-12.0 [facility] Comment on above: Result Comment: . Performed By: #### M G3, BMP3 ####The performing lab is in the report. Protimeon 08-10-2017 INR Coag RelTime (PPP) 1.1 {INR} Normal 0.9-1.1 [facility] Comment on above: Result Comment: Lux mmended Anticoagulant Therapy:SEE BELOW----- INR of 2.0 - 3.0 :- Prophylaxis of Venous Thrombosis (high-risk surgery)- Treatment of Venous Thrombosis- Treatment of Pulmonary Embolism (Includes tissue heartvalves, Acute Myocardial Infarction to prevent systemicembolism, Valvular Heart Disease, and Atrial Fibrillation)----- INR of 2.5 - 3.5 :- Mechanical Prosthetic Valves (high risk)- If oral anticoagulant therapy is used to preventMyocardial Infarction Performed By: #### M G3, BMP3 ####The performing lab is in the report. Prothrombin time (PT) Coag time (PPP) 11.8 s Normal 9.0-12.0 [facility] Comment on above: Result Comment: . Performed By: #### M G3, BMP3 ####The performing lab is in the report. aPTT Coag time (Bld) 24.1 s Normal 20.0-30.5 [facility] Comment on above: Result Comment: NOTE : The therapeutic time for Heparin anticoagulation,based on Xa activity inhibition, is an APTT of 46-80seconds. Performed By: #### M G3, BMP3 ####The performing lab is in the report. APTTon 08-09-2017 aPTT Coag time (Bld) 26.4 s Normal 20.0-30.5 [facility] Comment on above: Result Comment: NOTE : The therapeutic time for Heparin anticoagulation,based on Xa activity inhibition, is an APTT of 46-80seconds. Performed By: #### H EMDF, APTT, HA1C2 ####The performing lab is in the report. Basic Metabolic Panelon 07-17 Anion gap 3 molar conc 6 mmol/L Normal [facility] Comment on above: Performed By: #### H EMDF, MG3, BMP3 ####The performing lab is in the report. Calcium mass conc 9.1 mg/dL Normal 8.4-10.2 [facility] Comment on above: Performed By: #### H EMDF, MG3, BMP3 ####The performing lab is in the report. CO2 molar conc 29 mmol/L Normal 22-30 [facility] Comment on above: Performed By: #### H EMDF, MG3, BMP3 ####The performing lab is in the report. Glucose mass conc 138 mg/dL High 70-100 [facility] Comment on above: Performed By: #### H EMDF, MG3, BMP3 ####The performing lab is in the report. Urea nitrogen mass conc 15 mg/dL Normal 7-20 [facility] Comment on above: Performed By: #### H EMDF, MG3, BMP3 ####The performing lab is in the report. Creatinine mass conc 0.86 mg/dL Normal 0.52-1.25 [facility] Comment on above: Performed By: #### H EMDF, MG3, BMP3 ####The performing lab is in the report. GFR/1.73 sq M predicted among blacks MDRD vol rate/area (S/P/Bld) mL/min/{1.73_m2} Normal >60 [facility] Comment on above: Performed By: #### H EMDF, MG3, BMP3 ####The performing lab is in the report. GFR/1.73 sq M predicted among non-blacks MDRD vol rate/area (S/P/Bld) mL/min/{1.73_m2} Normal >60 [facility] Comment on above: Result Comment: Sour ce- MDRD equation with creatinine calibration to IDMS(NKDEP)eGFR not recommended for drug dose adjustment Performed By: #### H EMDF, MG3, BMP3 ####The performing lab is in the report. Chloride molar conc 107 mmol/L Normal 98-107 [facility] Comment on above: Performed By: #### H EMDF, MG3, BMP3 ####The performing lab is in the report. Potassium molar conc 4.2 mmol/L Normal 3.5-5.1 [facility] Comment on above: Performed By: #### H EMDF, MG3, BMP3 ####The performing lab is in the report. Sodium molar conc 142 mmol/L Normal 137-145 [facility] Comment on above: Performed By: #### H EMDF, MG3, BMP3 ####The performing lab is in the report. Hemoglobin A1Con 08-09-2017 Glucose mass conc 148 mg/dL Normal [facility] Comment on above: Performed By: #### H EMDF, APTT, HA1C2 ####The performing lab is in the report. Hemoglobin A1c/Hemoglobin.total mass fraction (Bld) 6.8 % High 4.0-5.7 [facility] Comment on above: Result Comment: --Hg bA1C levels may not be accurate in patients who haverenal disease, received recent blood transfusions, are anemic,or who have dyshemoglobinemia. Performed By: #### H EMDF, APTT, HA1C2 ####The performing lab is in the report. Hemogram w/ Autodiffon 08-09 Abs Baso Cnt 0.1 10*3/uL Normal 0.0-0.2 [facility] Comment on above: Performed By: #### H EMDF, APTT, HA1C2 ####The performing lab is in the report. Abs Neutrophile Cnt 3.3 10*3/uL Normal 1.8-7.0 [facility] Comment on above: Performed By: #### H EMDF, APTT, HA1C2 ####The performing lab is in the report. Basophils/100 WBC Auto (Bld) 1.9 % Normal 0.0-2.0 [facility] Comment on above: Performed By: #### H EMDF, APTT, HA1C2 ####The performing lab is in the report. Eosinophils Auto #/vol (Bld) 0.1 10*3/uL Normal 0.0-0.5 [facility] Comment on above: Performed By: #### H EMDF, APTT, HA1C2 ####The performing lab is in the report. Eosinophils/100 WBC Auto (Bld) 2.1 % Normal 1.0-6.0 [facility] Comment on above: Performed By: #### H EMDF, APTT, HA1C2 ####The performing lab is in the report. Erythrocyte distribution width Auto Ratio (RBC) 14.6 % High 11.5-14.5 [facility] Comment on above: Performed By: #### H EMDF, APTT, HA1C2 ####The performing lab is in the report. Granulocytes/100 WBC (Bld) 69.9 % Normal 40.0-80.0 [facility] Comment on above: Performed By: #### H EMDF, APTT, HA1C2 ####The performing lab is in the report. Hematocrit Auto Volume Fraction (Bld) 38.9 % Low 40.0-52.0 [facility] Comment on above: Performed By: #### H EMDF, APTT, HA1C2 ####The performing lab is in the report. Hemoglobin mass conc (Bld) 12.6 g/dL Low 13.0-18.0 [facility] Comment on above: Performed By: #### H EMDF, APTT, HA1C2 ####The performing lab is in the report. Lymphocytes Auto #/vol (Bld) 0.8 10*3/uL Low 1.0-4.3 [facility] Comment on above: Performed By: #### H EMDF, APTT, HA1C2 ####The performing lab is in the report. Lymphocytes/100 WBC Auto (Bld) 17.7 % Low 20.0-40.0 [facility] Comment on above: Performed By: #### H EMDF, APTT, HA1C2 ####The performing lab is in the report. MCH Auto Entitic mass (RBC) 30.6 pg Normal 26.0-34.0 [facility] Comment on above: Performed By: #### H EMDF, APTT, HA1C2 ####The performing lab is in the report. MCHC Auto mass conc (RBC) 32.5 % Normal 32.0-36.0 [facility] Comment on above: Performed By: #### H EMDF, APTT, HA1C2 ####The performing lab is in the report. MCV Auto Entitic volume (RBC) 94.0 fL Normal 80.0-98.0 [facility] Comment on above: Performed By: #### H EMDF, APTT, HA1C2 ####The performing lab is in the report. Monocytes Auto #/vol (Bld) 0.4 10*3/uL Normal 0.0-0.8 [facility] Comment on above: Performed By: #### H EMDF, APTT, HA1C2 ####The performing lab is in the report. Monocytes/100 WBC Auto (Bld) 8.4 % Normal 2.0-10.0 [facility] Comment on above: Performed By: #### H EMDF, APTT, HA1C2 ####The performing lab is in the report. Platelet mean volume Auto Entitic volume (Bld) 8.9 fL Normal 7.4-10.4 [facility] Comment on above: Performed By: #### H EMDF, APTT, HA1C2 ####The performing lab is in the report. Platelets Auto #/vol (Bld) 280 10*3/uL Normal 140-440 [facility] Comment on above: Performed By: #### H EMDF, APTT, HA1C2 ####The performing lab is in the report. RBC Auto #/vol (Bld) 4.14 10*6/uL Low 4.40-5.90 [facility] Comment on above: Performed By: #### H EMDF, APTT, HA1C2 ####The performing lab is in the report. WBC Auto #/vol (Bld) 4.7 10*3/uL Normal 3.6-10.7 [facility] Comment on above: Performed By: #### H EMDF, APTT, HA1C2 ####The performing lab is in the report. Abs Baso Cnt 0.1 10*3/uL Normal 0.0-0.2 [facility] Comment on above: Performed By: #### H EMDF, MG3, BMP3 ####The performing lab is in the report. Abs Neutrophile Cnt 3.0 10*3/uL Normal 1.8-7.0 [facility] Comment on above: Performed By: #### H EMDF, MG3, BMP3 ####The performing lab is in the report. Basophils/100 WBC Auto (Bld) 1.1 % Normal 0.0-2.0 [facility] Comment on above: Performed By: #### H EMDF, MG3, BMP3 ####The performing lab is in the report. Eosinophils Auto #/vol (Bld) 0.1 10*3/uL Normal 0.0-0.5 [facility] Comment on above: Performed By: #### H EMDF, MG3, BMP3 ####The performing lab is in the report. Eosinophils/100 WBC Auto (Bld) 2.8 % Normal 1.0-6.0 [facility] Comment on above: Performed By: #### H EMDF, MG3, BMP3 ####The performing lab is in the report. Erythrocyte distribution width Auto Ratio (RBC) 14.9 % High 11.5-14.5 [facility] Comment on above: Performed By: #### H EMDF, MG3, BMP3 ####The performing lab is in the report. Granulocytes/100 WBC (Bld) 62.0 % Normal 40.0-80.0 [facility] Comment on above: Performed By: #### H EMDF, MG3, BMP3 ####The performing lab is in the report. Hematocrit Auto Volume Fraction (Bld) 40.1 % Normal 40.0-52.0 [facility] Comment on above: Performed By: #### H EMDF, MG3, BMP3 ####The performing lab is in the report. Hemoglobin mass conc (Bld) 13.2 g/dL Normal 13.0-18.0 [facility] Comment on above: Performed By: #### H RAFAELF, MG3, BMP3 ####The performing lab is in the report. Lymphocytes Auto #/vol (Bld) 1.2 10*3/uL Normal 1.0-4.3 [facility] Comment on above: Performed By: #### H RAFAELF, MG3, BMP3 ####The performing lab is in the report. Lymphocytes/100 WBC Auto (Bld) 25.8 % Normal 20.0-40.0 [facility] Comment on above: Performed By: #### H EMDF, MG3, BMP3 ####The performing lab is in the report. MCH Auto Entitic mass (RBC) 30.8 pg Normal 26.0-34.0 [facility] Comment on above: Performed By: #### H EMDF, MG3, BMP3 ####The performing lab is in the report. MCHC Auto mass conc (RBC) 32.8 % Normal 32.0-36.0 [facility] Comment on above: Performed By: #### H EMDF, MG3, BMP3 ####The performing lab is in the report. MCV Auto Entitic volume (RBC) 94.0 fL Normal 80.0-98.0 [facility] Comment on above: Performed By: #### H EMDF, MG3, BMP3 ####The performing lab is in the report. Monocytes Auto #/vol (Bld) 0.4 10*3/uL Normal 0.0-0.8 [facility] Comment on above: Performed By: #### H EMDF, MG3, BMP3 ####The performing lab is in the report. Monocytes/100 WBC Auto (Bld) 8.3 % Normal 2.0-10.0 [facility] Comment on above: Performed By: #### H EMDF, MG3, BMP3 ####The performing lab is in the report. Platelet mean volume Auto Entitic volume (Bld) 8.7 fL Normal 7.4-10.4 [facility] Comment on above: Performed By: #### H EMDF, MG3, BMP3 ####The performing lab is in the report. Platelets Auto #/vol (Bld) 274 10*3/uL Normal 140-440 [facility] Comment on above: Performed By: #### H EMDF, MG3, BMP3 ####The performing lab is in the report. RBC Auto #/vol (Bld) 4.27 10*6/uL Low 4.40-5.90 [facility] Comment on above: Performed By: #### H EMDF, MG3, BMP3 ####The performing lab is in the report. WBC Auto #/vol (Bld) 4.8 10*3/uL Normal 3.6-10.7 [facility] Comment on above: Performed By: #### H EMDF, MG3, BMP3 ####The performing lab is in the report. Magnesiumon 08-09-2017 Magnesium mass conc 2.0 mg/dL Normal 1.6-2.3 [facility] Comment on above: Performed By: #### H EMDF, MG3, BMP3 ####The performing lab is in the report. TS GELon 08-09-2017 TS GEL ABO Group: A Rh, Gel: POS Antibody Screen Gel: NEG Normal [facility] Comment on above: Performed By: #### M G3, BMP3 ####The performing lab is in the report. Urinalysis,Macroon 8 Appearance clear Normal Clear [facility] Comment on above: Performed By: #### M G3, BMP3 ####The performing lab is in the report. Bilirubin,Ur Negative Normal Negative [facility] Comment on above: Performed By: #### M G3, BMP3 ####The performing lab is in the report. Color yellow Normal Lt. Yellow [facility] Comment on above: Performed By: #### M G3, BMP3 ####The performing lab is in the report. Glucose Ql (U) NORM Normal Negative [facility] Comment on above: Performed By: #### M G3, BMP3 ####The performing lab is in the report. Ketone,Urine Negative Normal Negative [facility] Comment on above: Performed By: #### M G3, BMP3 ####The performing lab is in the report. Leukocytes Negative Normal Negative [facility] Comment on above: Performed By: #### M G3, BMP3 ####The performing lab is in the report. Nitrites Negative Normal Negative [facility] Comment on above: Performed By: #### M G3, BMP3 ####The performing lab is in the report. Occult Blood,Ur Negative Normal Negative [facility] Comment on above: Performed By: #### M G3, BMP3 ####The performing lab is in the report. pH Test strip (U) 7.0 [pH] Normal 5.0-8.0 [facility] Comment on above: Performed By: #### M G3, BMP3 ####The performing lab is in the report. Specific [place],Urine 1.005 Normal 1.005-1.030 [facility] Comment on above: Performed By: #### M G3, BMP3 ####The performing lab is in the report. Total Protein,Urine Negative Normal Negative [facility] Comment on above: Performed By: #### M G3, BMP3 ####The performing lab is in the report. Urobilinogen NORM Normal 0-1 [facility] Comment on above: Performed By: #### M G3, BMP3 ####The performing lab is in the report. Basic Metabolic Panelon 07-17 Anion gap 3 molar conc 7 mmol/L Normal [facility] Comment on above: Performed By: #### Ap G3, BMP3 ####The performing lab is in the report. Calcium mass conc 9.0 mg/dL Normal 8.4-10.2 [facility] Comment on above: Performed By: #### Ap G3, BMP3 ####The performing lab is in the report. CO2 molar conc 26 mmol/L Normal 22-30 [facility] Comment on above: Performed By: #### Ap G3, BMP3 ####The performing lab is in the report. Glucose mass conc 162 mg/dL High 70-100 [facility] Comment on above: Performed By: #### Ap G3, BMP3 ####The performing lab is in the report. Urea nitrogen mass conc 18 mg/dL Normal 7-20 [facility] Comment on above: Performed By: #### Ap G3, BMP3 ####The performing lab is in the report. Creatinine mass conc 0.95 mg/dL Normal 0.52-1.25 [facility] Comment on above: Performed By: #### Ap G3, BMP3 ####The performing lab is in the report. GFR/1.73 sq M predicted among blacks MDRD vol rate/area (S/P/Bld) mL/min/{1.73_m2} Normal >60 [facility] Comment on above: Performed By: #### Ap G3, BMP3 ####The performing lab is in the report. GFR/1.73 sq M predicted among non-blacks MDRD vol rate/area (S/P/Bld) mL/min/{1.73_m2} Normal >60 [facility] Comment on above: Result Comment: Sour ce- MDRD equation with creatinine calibration to IDMS(NKDEP)eGFR not recommended for drug dose adjustment Performed By: #### M G3, BMP3 ####The performing lab is in the report. Potassium molar conc 4.1 mmol/L Normal 3.5-5.1 [facility] Comment on above: Performed By: #### M G3, BMP3 ####The performing lab is in the report. Chloride molar conc 105 mmol/L Normal 98-107 [facility] Comment on above: Performed By: #### M G3, BMP3 ####The performing lab is in the report. Sodium molar conc 138 mmol/L Normal 137-145 [facility] Comment on above: Performed By: #### M G3, BMP3 ####The performing lab is in the report. Magnesiumon 08-08-2017 Magnesium mass conc 2.1 mg/dL Normal 1.6-2.3 [facility] Comment on above: Performed By: #### M G3, BMP3 ####The performing lab is in the report. VL Vein Map for Preop Bypass [place] 08-08-2017 VL Vein Map for Preop Bypass Lower Ext Patient Name: JAMES REYES Ultrasound Exam Date/Time 08/08/2017 16:04:08 EDT Exam VL Vein Map for Preop Bypass Lower Ext Ordering Physician STACEY CLEMONS Accession Number [id number] CPT4 Codes 02306 () Reason For Exam pre op cabg Report [facility] ------ --- Bilateral LE Vein Mapping For Bypass Report Patient Name: James Reyes : 1955 Study Date: 08/08/2017 (61yrs) Age: 61 Account: [id number] Gender: M Loc: BP: Ordering: Stacey Clemons Technologist: Ordering Physician: Stacey Clemons Process Validation Engineer: Annie Castillo RVT Interpreting Physician: Willy Boykin ------ --- Location: [facility] ------ --- INDICATIONS: Pre OP CABG. ------ --- CONCLUSIONS 1. Vein mapping as below ------ --- IMPRESSIONS: - The right greater saphenous vein is patent with measurements listed below. - The right lesser saphenous vein is patent with measurements listed below. - The left greater saphenous vein is patent with measurements listed below. - The left lesser saphenous vein is patent with measurements listed below. ------ --- STUDY DATA: Bilateral lower extremity vein mapping. Birthdate: Patient birthdate: 1955. Age: Patient is 61 yr old. Sex: Gender: male. Ethnicity: Ethnicity: white. Height: Height: 0 cm. Weight: Weight: 0 kg. Garcia scale imaging. ------ --- Vein measurement table: + +-- -----+ + !Location !AP !Comments ! + +-- -----+ + !Right greater saphenous (femoral junction)!6.69 mm! ! + +-- -----+ + !Proximal right greater saphenous (thigh) !5.02 mm! ! + +-- -----+ + !Mid right greater saphenous (thigh) !3.20 mm!branching.! + +-- -----+ + !Distal right greater saphenous (thigh) !3.90 mm! ! + +-- -----+ + !Right greater saphenous (knee) !2.76 mm! ! + +-- -----+ + !Proximal right greater saphenous (calf) !1.66 mm!branching.! + +-- -----+ + !Mid right greater saphenous (calf) !2.28 mm! ! + +-- -----+ + !Distal right greater saphenous (calf) !3.84 mm! ! + +-- -----+ + !Proximal right lesser saphenous (calf) !4.15 mm! ! + +-- -----+ + !Mid right lesser saphenous (calf) !3.11 mm! ! + +-- -----+ + !Distal right lesser saphenous (calf) !2.59 mm! ! + +-- -----+ + !Left greater saphenous (femoral junction) !7.72 mm! ! + +-- -----+ + !Proximal left greater saphenous (thigh) !6.09 mm! ! + +-- -----+ + !Mid left greater saphenous (thigh) !4.84 mm!branching.! + +-- -----+ + !Distal left greater saphenous (thigh) !4.62 mm! ! + +-- -----+ + !Left greater saphenous (knee) !3.58 mm! ! + +-- -----+ + !Proximal left greater saphenous (calf) !3.16 mm! ! + +-- -----+ + !Mid left greater saphenous (calf) !2.65 mm! ! + +-- -----+ + !Distal left greater saphenous (calf) !3.32 mm! ! + +-- -----+ + !Proximal left lesser saphenous (calf) !2.54 mm! ! + +-- -----+ + !Mid left lesser saphenous (calf) !2.44 mm! ! + +-- -----+ + !Distal left lesser saphenous (calf) !2.80 mm! ! + +-- -----+ + Electronically signed by: Willy Boykin [id number] Final Dictated: 08/08/2017 4:29 pm Dictating Physician: WILLY BOYKIN Signed Date and Time: 08/08/2017 4:29 pm Signed by: WILLY BOYKIN Normal [facility] Diagnostic Catherizationon 0 08-07-2017 Diagnostic Catherization Patient Name: JAMES RASHID [facility] Care Provider Exam Date/Time 08/07/2017 13:22:00 EDT Exam Diagnostic Catherization Ordering Physician KEVIN DA SILVA Accession Number [id number] Reason For Exam Chest pain, unspecified Report [facility] ------ --- CARDIAC CATHETERIZATION Patient: James Reyes Procedure Date: 08/07/2017 : 1955 Age: 61 Gender: M Patient Type: Outpatient Procedure physician: Kevin Da Silva MD Fellow: Referring Physician: Kevin Da Silva MD ------ --- INDICATIONS: Atherosclerotic coronary artery disease. Positive stress echocardiogram. Angina-CCS class III (marked limitation of ordinary activity) ------ --- Procedures performed: - Right coronary angiography. - Left coronary angiography. - Left heart catheterization with angiography. - GREY graft angiography. ------ --- SUMMARY: 1. Left ventricle: Hypertrophy is noted. Systolic function is normal. The estimated ejection fraction is 50-55%. 2. LAD: Proximal vessel lesion: There is an 80% stenosis. 3. 1st diagonal: Proximal vessel lesion: There is an 85% stenosis. 4. Right coronary: Proximal vessel lesion: There is a 55% stenosis. 5. MILDLY ELEVATED LVEDP.=17 MMHG. 6. NO MR. NO MVP. 7. GOOD SIZE GREY VESSEL. IMPRESSIONS: Moderate double vessel coronary artery disease as described. RECOMMENDATIONS: 1. A cardiac surgeon was consulted for CABG at the conclusion of the procedure. 2. Patient management should include aggressive risk factor modification. 3. Add optimal medical therapy of the patient's disease. ------ --- HISTORY: Chronic obstructive pulmonary disease. Dyslipidemia. Family history of cardiovascular disease. PMH: Chronic lung disease. Risk factors: Family history of coronary artery disease. Current tobacco use. Hypertension. Diabete s mellitus; on therapy with insulin. Obese. Dyslipidemia. Medications: Aspir in. Enoxaparin (Lovenox). Simvastatin (Zocor). Fenofibrate (Tricor). Insuli n. Diet: Diabetic diet. Allergies: Penicillin allergy. PCN, Terramycin a llergy. ------ --- PROCEDURE IN DETAIL: Study status: Cardiac cath: urgent. Consent: The risks, benefits, and alternatives to the procedure and sedation were explained to the patient and informed consent was obtained. Fluoroscopy time: Fluorosco py time: 5.2 min. Fluoroscopy dose: Fluoroscopy dose: 149.4 cGy. Location : Catheterization laboratory. PROCEDURE: 1. Initial setup. The patient was brought to the laboratory. A baseline ECG was recorded. Intravenous access was obtained. Surface ECG leads, blood pressure measurements, and pulse oximetric signals were monitored. 2. Skin preparation. The planned puncture sites were prepped and draped in the usual sterile manner. 3. Local anesthesia. 1% Lidocaine was administered to the right groin. 4. Right femoral artery access. A 6Fr/12cm Engage sheath was advanced into the vessel. 5. Selective right coronary angiography. A 6Fr/100cm DxTerity JR 4.0 catheter was advanced into the right coronary vessel ostium under fluoroscopic guidance. Contrast was injected. Images were obtained in multiple projections. 6. Selective left coronary angiography. A 6Fr x 100cm DxTerity JL 4.0 catheter was advanced into the left coronary vessel ostium under fluoroscopic guidance. Contrast was injected. Images were obtained in multiple projections. 7. Left heart catheterization with angiography. A 6Fr/100cm DxTerity Pigtail 145 catheter was advanced across the aortic valve to the left ventricle under fluoroscopic guidance. 30 ml of contrast was injected at 10 ml/s. 8. Selective angiography of the left internal mammary graft to the LAD. A 5FR/100cm DxTerity INOCENCIO catheter was advanced into the left internal mammary graft ostium under fluoroscopic guidance. Contrast was injected. Images were obtained in multiple projections. 9. Right femoral artery hemostasis. The sheath was removed. Manual compression was applied. STUDY COMPLETION: All catheters inserted during the procedure were removed. The patient tolerated the procedure well and was discharged from the lab. There were no complications. Administered medications: IV SOLUTIONS, infusion rat e of 75ml/hr, IV SOLUTIONS. Fentanyl, 25mcg, FENTANYL. Contrast: 1. ISOVUE 300MG/CC 117 ml (total dose). ------ --- CORONARY ARTERIES: The coronary circulation is right dominant. The left main bifurcates normally into the LAD and circumflex. The left anterior descending g abiodun rise to 2 diagonals. The right coronary gives rise to 1 RV marginal and 1 posterolateral. LAD: Proximal vessel lesion: There is an 80% stenosis. 1st diagonal: Proximal vessel lesion: There is an 85% stenosis. Left circumflex: Distal vessel lesion: There is a 30% stenosis. Right coronary: Proximal vessel lesion: There is a 55% stenosis. Proximal vessel lesion: There is a 40% stenosis. CORONARY GRAFTS: GREY graft to the LAD: LEFT VENTRICLE: Hypertrophy is noted. Systolic function is normal. The estimated ejection fraction is 50-55%. HEMODYNAMICS: mildly elevated lvedp=17 mmhg. + ---+ --+ !Stage description !Condition1:Room Air -! + ---+ --+ !LV pressure s/ed !120/17 ! + ---+ --+ !Arterial pressure s/d (m)!141/68 (93) ! + ---+ --+ Prepared and electronically signed by Kevin Da Silva MD 08/07/2017 18:39 Final Dictated: 09/08/2017 12:15 pm Dictating Physician: KEVIN DA SILVA Signed Date and Time: 08/07/2017 6:39 pm Signed by: KEVIN DA SILVA [facility] Otheron 10-02-2006 CONVERTED ELECTRONIC SIGNATURE KRISSY MONTERO M.D., PATHOLOGIST (Electronic signature on file) Final Signed Out: 10/02/2006 13:35 [facility] CONVERTED FINAL DIAGNOSIS GASTRIC ANTRUM, BIOPSY - CHRONIC ACTIVE GASTRITIS. MICRO-ORGANISMS SUGGESTIVE OF HELICOBACTER PYLORI. NEGATIVE FOR DYSPLASIA OR CARCINOMA. AB/PAS STAIN REVIEWED. [facility] CONVERTED ORDERING PROVIDER Ordering Provider: ELIN GOOD [facility] GISELA TILLMAN (BOTH E YES) [facility] Vital Signs Date Time Vital Sign Value Performing Clinician Tash vargas 07-17-2024 12:23-0400 Heart rate 60 /min Amanuel Parisi MD Work Phone: [facility] 07-17-2024 12:23-0400 SaO2% (BldA) [Mass fraction] 97 % Amanuel Parisi MD Work Phone: [facility] 07-17-2024 07:32-0400 Body temperature 97.11 [degF] Amanuel Parisi MD Work Phone: [facility] 07-17-2024 07:32-0400 Diastolic blood pressure 69 mm[Hg] Amanuel Parisi MD Work Phone: [facility] 07-17-2024 07:32-0400 Respiratory rate 18 /min Amanuel Parisi MD Work Phone: [facility] 07-17-2024 07:32-0400 Systolic blood pressure 133 mm[Hg] Amanuel Parisi MD Work Phone: [facility] 07-15-2024 17:31-0400 SaO2% (BldA) [Mass fraction] 92.2 % Amanuel Parisi MD Work Phone: [facility] 07-15-2024 11:40-0400 Body mass index (BMI) [Ratio] 39.74 kg/m2 Amanuel Parisi MD Work Phone: [facility] 07-15-2024 11:40-0400 Body weight 132.9 kg Amanuel Parisi MD Work Phone: [facility] 06-27-2024 11:19-0400 Diastolic blood pressure 69 mm[Hg] Pepe Marino MD Work Phone: [facility] 06-27-2024 11:19-0400 Heart rate 70 /min Pepe Marino MD Work Phone: [facility] 06-27-2024 11:19-0400 Systolic blood pressure 124 mm[Hg] Pepe Marino MD Work Phone: [facility] 06-04-2024 12:13-0500 SaO2% (BldA) [Mass fraction] 93 % Arsh Mar MD Work Phone: [facility] 06-04-2024 08:27-0500 Body temperature 96.49 [degF] Arsh Mar MD Work Phone: [facility] 06-04-2024 08:27-0500 Diastolic blood pressure 71 mm[Hg] Arsh Mar MD Work Phone: [facility] 06-04-2024 08:27-0500 Heart rate 52 /min Arsh Mar MD Work Phone: [facility] 06-04-2024 08:27-0500 Respiratory rate 18 /min Arsh Mar MD Work Phone: [facility] 06-04-2024 08:27-0500 Systolic blood pressure 144 mm[Hg] Arsh Mar MD Work Phone: [facility] 06-04-2024 06:00-0500 Body mass index (BMI) [Ratio] 39.86 kg/m2 Arsh Mar MD Work Phone: [facility] 06-04-2024 06:00-0500 Body weight 133.3 kg Arsh Mar MD Work Phone: [facility] 05-31-2024 10:56-0500 Body height 182.9 cm Arsh Mar MD Work Phone: [facility] 05-30-2024 13:55-0500 SaO2% (BldA) [Mass fraction] 95.9 % Arsh Mar MD Work Phone: [facility] 05-30-2024 09:49-0500 SaO2% (BldA) [Mass fraction] 89.5 % Arsh Mar MD Work Phone: [facility] 05-13-2024 13:10-0500 Body height 185.4 cm Pepe Marino MD Work Phone: [facility] 05-13-2024 13:10-0500 Body mass index (BMI) [Ratio] 39.58 kg/m2 Pepe Marino MD Work Phone: [facility] 05-13-2024 13:10-0500 Body weight 136.08 kg Pepe Marino MD Work Phone: [facility] 05-13-2024 13:10-0500 Diastolic blood pressure 50 mm[Hg] Pepe Marino MD Work Phone: [facility] 05-13-2024 13:10-0500 Heart rate 68 /min Pepe Marino MD Work Phone: [facility] 05-13-2024 13:10-0500 Systolic blood pressure 100 mm[Hg] Pepe Marino MD Work Phone: [facility] 03-08-2024 08:32-0500 Body height 182.9 cm Che Carrasco CNP Work Phone: [facility] 03-08-2024 08:32-0500 Body mass index (BMI) [Ratio] 38.52 kg/m2 Che Alegria PAYROLL AND BENEFITS ASSISTANT - TECHNICAL ARCHITECT Work Phone: [facility] 03-08-2024 08:32-0500 Body weight 128.82 kg Che Alegria PAYROLL AND BENEFITS ASSISTANT - TECHNICAL ARCHITECT Work Phone: [facility] 03-08-2024 08:32-0500 Diastolic blood pressure 48 mm[Hg] Che Alegria PAYROLL AND BENEFITS ASSISTANT - TECHNICAL ARCHITECT Work Phone: [facility] 03-08-2024 08:32-0500 Heart rate 77 /min Che Alegria PAYROLL AND BENEFITS ASSISTANT - TECHNICAL ARCHITECT Work Phone: [facility] 03-08-2024 08:32-0500 SaO2% (BldA) [Mass fraction] 95 % Che Alegria PAYROLL AND BENEFITS ASSISTANT - TECHNICAL ARCHITECT Work Phone: [facility] 03-08-2024 08:32-0500 Systolic blood pressure 96 mm[Hg] Che Alegria PAYROLL AND BENEFITS ASSISTANT - TECHNICAL ARCHITECT Work Phone: [facility] 12-05-2023 13:07-0400 Diastolic blood pressure 61 mm[Hg] Gulshan Skiffey DO Work Phone: [facility] 12-05-2023 13:07-0400 Heart rate 56 /min Gulshan Skiffey DO Work Phone: [facility] 12-05-2023 13:07-0400 Respiratory rate 18 /min Gulshan Skiffey DO Work Phone: [facility] 12-05-2023 13:07-0400 SaO2% (BldA) [Mass fraction] 93 % Gulshan Skiffey DO Work Phone: [facility] 12-05-2023 13:07-0400 Systolic blood pressure 157 mm[Hg] Gulshan Skiffey DO Work Phone: [facility] 12-05-2023 13:07-0400 Body temperature 97.3 [degF] Gulshan Skiffey DO Work Phone: [facility] 11-30-2023 11:39-0400 Body height 188 cm Gulshan Arreola DO Work Phone: [facility] 11-30-2023 11:39-0400 Body mass index (BMI) [Ratio] 35.82 kg/m2 Gulshan Arreola DO Work Phone: [facility] 11-30-2023 11:39-0400 Body weight 126.55 kg Gulshan Arreola DO Work Phone: [facility] 09-14-2023 09:09-0400 Diastolic blood pressure 71 mm[Hg] Rony Arriaza DMD, MD [facility] 09-14-2023 09:09-0400 Heart rate 59 /min Rony Arriaza DMD, MD [facility] 09-14-2023 09:09-0400 Systolic blood pressure 134 mm[Hg] Rony Arriaza DMD, MD [facility] 09-05-2023 09:35-0400 Body height 188 cm Rony Arriaza DMD, MD [facility] 09-05-2023 09:35-0400 Body mass index (BMI) [Ratio] 36.59 kg/m2 Rony Arriaza DMD, MD [facility] 09-05-2023 09:35-0400 Body weight 129.28 kg Rony Arriaza DMD, MD [facility] 08-21-2023 10:08-0400 Body height 185.4 cm Suzy Corcoran MD Work Phone: [facility] 08-21-2023 10:08-0400 Diastolic blood pressure 62 mm[Hg] Suzy Corcoran MD Work Phone: [facility] 08-21-2023 10:08-0400 Heart rate 56 /min Otkillian Corcoran MD Work Phone: [facility] 08-21-2023 10:08-0400 SaO2% (BldA) [Mass fraction] 93 % Otfrphilip Corcoran MD Work Phone: [facility] 08-21-2023 10:08-0400 Systolic blood pressure 108 mm[Hg] Otfrphilip Corcoran MD Work Phone: [facility] 07-14-2023 11:56-0400 Body height 185.4 cm Mingo Leslye PAYROLL AND BENEFITS ASSISTANT - TECHNICAL ARCHITECT Work Phone: [facility] 07-14-2023 11:56-0400 Body mass index (BMI) [Ratio] 36.41 kg/m2 Mingo Newsomenan PAYROLL AND BENEFITS ASSISTANT - TECHNICAL ARCHITECT Work Phone: [facility] 07-14-2023 11:56-0400 Body weight 125.19 kg Mingo Leslye PAYROLL AND BENEFITS ASSISTANT - TECHNICAL ARCHITECT Work Phone: [facility] 05-12-2023 10:01-0500 Body height 185.4 cm Mingo Leslye PAYROLL AND BENEFITS ASSISTANT - TECHNICAL ARCHITECT Work Phone: [facility] 05-12-2023 10:01-0500 Body mass index (BMI) [Ratio] 36.41 kg/m2 Mingo Newsomenan PAYROLL AND BENEFITS ASSISTANT - TECHNICAL ARCHITECT Work Phone: [facility] 05-12-2023 10:01-0500 Body weight 125.19 kg Mingo Newsomenan PAYROLL AND BENEFITS ASSISTANT - TECHNICAL ARCHITECT Work Phone: [facility] 05-12-2023 10:01-0500 Diastolic blood pressure 60 mm[Hg] Mingo Gavin PAYROLL AND BENEFITS ASSISTANT - TECHNICAL ARCHITECT Work Phone: [facility] 05-12-2023 10:01-0500 Heart rate 62 /min Mingo Leslye PAYROLL AND BENEFITS ASSISTANT - TECHNICAL ARCHITECT Work Phone: [facility] 05-12-2023 10:01-0500 SaO2% (BldA) [Mass fraction] 98 % Mingo Leslye PAYROLL AND BENEFITS ASSISTANT - TECHNICAL ARCHITECT Work Phone: [facility] 05-12-2023 10:01-0500 Systolic blood pressure 104 mm[Hg] Mingo Gavin PAYROLL AND BENEFITS ASSISTANT - TECHNICAL ARCHITECT Work Phone: [facility] 04-24-2023 08:16-0500 Body height 182.9 cm Gulshan Arreola DO Work Phone: [facility] 04-24-2023 08:16-0500 Body mass index (BMI) [Ratio] 37.97 kg/m2 Gulshan Mckeonffey DO Work Phone: [facility] 04-24-2023 08:16-0500 Body weight 127.01 kg Gulshan Arreola DO Work Phone: [facility] 04-24-2023 07:45-0500 Diastolic blood pressure 51 mm[Hg] Gulshan Mckeonffey DO Work Phone: [facility] 04-24-2023 07:45-0500 Heart rate 68 /min Gulshan Mckeonffey DO Work Phone: [facility] 04-24-2023 07:45-0500 Respiratory rate 18 /min Gulshan Arreola DO Work Phone: [facility] 04-24-2023 07:45-0500 SaO2% (BldA) [Mass fraction] 94 % Gulshan Arreola DO Work Phone: [facility] 04-24-2023 07:45-0500 Systolic blood pressure 112 mm[Hg] Gulshan Arreola DO Work Phone: [facility] 04-23-2023 20:11-0500 Body temperature 97.59 [degF] Gulshan Arreola DO Work Phone: [facility] 02-22-2023 10:01-0500 Body mass index (BMI) [Ratio] 33.64 kg/m2 Otkillian Corcoran MD Work Phone: [facility] 02-22-2023 10:01-0500 Body weight 118.84 kg Otkillian Corcoran MD Work Phone: [facility] 02-22-2023 10:01-0500 Diastolic blood pressure 62 mm[Hg] Otkillian Corcoran MD Work Phone: [facility] 02-22-2023 10:01-0500 Heart rate 102 /min Otfried Nilo MARTINEZ Work Phone: [facility] 02-22-2023 10:01-0500 SaO2% (BldA) [Mass fraction] 98 % Otfrphilip Corcoran MD Work Phone: [facility] 02-22-2023 10:01-0500 Systolic blood pressure 130 mm[Hg] Otfried Nilo MARTINEZ Work Phone: [facility] 12-13-2022 11:57-0400 Body height 188 cm David Chen MD Work Phone: [facility] 12-13-2022 11:57-0400 Body mass index (BMI) [Ratio] 37.88 kg/m2 David Chen MD Work Phone: [facility] 12-13-2022 11:57-0400 Body weight 133.81 kg David Chen MD Work Phone: [facility] 12-13-2022 11:57-0400 Diastolic blood pressure 64 mm[Hg] David Chen MD Work Phone: [facility] 12-13-2022 11:57-0400 Heart rate 72 /min David Chen MD Work Phone: [facility] 12-13-2022 11:57-0400 Systolic blood pressure 102 mm[Hg] David Chen MD Work Phone: [facility] 07-18-2022 15:36-0400 Body temperature 98.1 [degF] Chelle Troncoso Work Phone: [facility] 07-18-2022 15:36-0400 Diastolic blood pressure 75 mm[Hg] Chelle Troncoso Work Phone: [facility] 07-18-2022 15:36-0400 Heart rate 60 /min Chelle Troncoso Work Phone: [facility] 07-18-2022 15:36-0400 Respiratory rate 20 /min Chelle Troncoso Work Phone: [facility] 07-18-2022 15:36-0400 SaO2% (BldA) [Mass fraction] 95 % Chelle Troncoso Work Phone: [facility] 07-18-2022 15:36-0400 Systolic blood pressure 139 mm[Hg] Chelle Troncoso Work Phone: [facility] 07-18-2022 13:41-0400 Body height 188 cm Chelle Troncoso Work Phone: [facility] 07-18-2022 13:41-0400 Body mass index (BMI) [Ratio] 38.52 kg/m2 Chelle Troncoso Work Phone: [facility] 07-18-2022 13:41-0400 Body weight 136.08 kg Chelle Troncoso Work Phone: [facility] 06-07-2022 11:39-0500 Body height 188 cm David Chen MD Work Phone: [facility] 06-07-2022 11:39-0500 Body mass index (BMI) [Ratio] 37.49 kg/m2 David Chen MD Work Phone: [facility] 06-07-2022 11:39-0500 Body weight 132.45 kg David Chen MD Work Phone: [facility] 06-07-2022 11:39-0500 Diastolic blood pressure 59 mm[Hg] David Chen MD Work Phone: [facility] 06-07-2022 11:39-0500 Heart rate 76 /min Davdi Chen MD Work Phone: [facility] 06-07-2022 11:39-0500 Systolic blood pressure 90 mm[Hg] David Chen MD Work Phone: [facility] 04-27-2022 08:00-0500 Body height 188 cm [facility] 04-27-2022 08:00-0500 Body mass index (BMI) [Ratio] 36.98 kg/m2 [place] [facility] 04-27-2022 08:00-0500 Body weight 130.64 kg [place] [facility] 05-06-2019 23:30-0500 Diastolic blood pressure 54 mm[Hg] Barry Guadalupe MD Work Phone: [facility] Work Phone: 05-06-2019 23:30-0500 Heart rate 67 /min Barry Guadalupe MD Work Phone: [facility] Work Phone: 05-06-2019 23:30-0500 Respiratory rate 20 /min Barry Guadalupe MD Work Phone: [facility] Work Phone: 05-06-2019 23:30-0500 Systolic blood pressure 115 mm[Hg] Barry Guadalupe MD Work Phone: [facility] Work Phone: 05-06-2019 22:30-0500 SaO2% (BldA) [Mass fraction] 93 % Barry Guadalupe MD Work Phone: [facility] Work Phone: 05-06-2019 20:05-0500 Body temperature 98.2 [degF] Barry Guadalupe MD Work Phone: [facility] Work Phone: 04-12-2019 17:10-0500 Diastolic blood pressure 65 mm[Hg] James Begum MD Work Phone: [facility] Work Phone: 04-12-2019 17:10-0500 Heart rate 65 /min James Begum MD Work Phone: [facility] Work Phone: 04-12-2019 17:10-0500 Respiratory rate 18 /min James Begum MD Work Phone: [facility] Work Phone: 04-12-2019 17:10-0500 SaO2% (BldA) [Mass fraction] 99 % James Begum MD Work Phone: [email or web address] Work Phone: 04-12-2019 17:10-0500 Systolic blood pressure 132 mm[Hg] James Begum MD Work Phone: [facility] Work Phone: 04-12-2019 15:42-0500 Body height 188 cm James Begum MD Work Phone: [facility] Work Phone: 04-12-2019 15:42-0500 Body mass index (BMI) [Ratio] 37.75 kg/m2 James Begum MD Work Phone: [email or web address] Work Phone: 04-12-2019 15:42-0500 Body temperature 98.01 [degF] James Begum MD Work Phone: [email or web address] Work Phone: 04-12-2019 15:42-0500 Body weight 133.36 kg James Begum MD Work Phone: [email or web address] Work Phone: Encounters Encounter Date Encounter Type Care Provider Facility Start: 07-15-2024 End: 07-17-2024 Evaluation and management of inpatient Amanuel Parisi MD Work Phone: [facility] Medical Surgical Unit MSU 4S Comment on above: Hematemesis (Primary Dx); Coffee ground emesis Start: 07-01-2024 End: 07-01-2024 ambulatory Chelle GARCIA [facility] Work Phone: Start: 07-01-2024 End: 07-01-2024 [facility] Start: 07-01-2024 End: 07-01-2024 ambulatory Chelle GARCIA Facility:[facility] Start: 06-27-2024 End: 06-27-2024 Patient encounter procedure Pepe Marino MD Work Phone: [facility] [place] Comment on above: BPH with lower urina ry tract symptoms without urinary obstruction; Urge incontinence; Elevated PSA; Gross hematuria Start: 06-27-2024 End: 06-27-2024 ambulatory PEPE Cook Yeahka [facility] Start: 06-02-2024 End: 06-02-2024 Telephone encounter Emmy Ramirez MD Work Phone: [facility] Start: 05-30-2024 End: 06-04-2024 Evaluation and management of inpatient Arsh Mar MD Work Phone: [facility] Cardiac Progressive Care Unit PCU 2E Comment on above: Acute hypercapnic re spiratory failure (HCC) (Primary Dx); Hypercapnia; Hypoxia Start: 05-22-2024 End: 05-22-2024 Subsequent hospital visit by physician Pepe Marino MD Work Phone: [facility] Comment on above: Recurrent UTI Start: 05-22-2024 End: 05-22-2024 ambulatory PEPE Cook Yeahka [facility] Start: 05-14-2024 ambulatory Chelle GARCIA Facil ity:[facility] Start: 05-14-2024 Registered Referred Chelle Cruz - [address] Start: 05-13-2024 End: 05-13-2024 ambulatory PEPE Joyce Yeahka [facility] Start: 05-13-2024 End: 05-13-2024 Office outpatient new 45 minutes Pepe Marino MD Work Phone[facility] Comment on above: Elevated PSA (Primar y Dx); BPH with lower urinary tract symptoms without urinary obstruction; Urge incontinence; Gross hematuria; Recurrent UTI; Retention of urine, unspecified Start: 05-02-2024 End: 05-02-2024 Telephone encounter Pepe Marino MD Work Phone: [facility] Start: 04-01-2024 End: 04-01-2024 Departed Referred Chelle Cruz - [address] Start: 04-01-2024 End: 04-01-2024 ambulatory Chelle GARCIA Facility:[facility] Start: 03-26-2024 End: 03-26-2024 Departed Referred Chelle Troncoso -[facility] - [address] Start: 03-26-2024 End: 03-26-2024 ambulatory Chelle GARCIA Facility:[facility] Start: 03-08-2024 End: 03-08-2024 [facility] Start: 03-08-2024 End: 03-08-2024 Office outpatient visit 25 minutes Che Rodasimelda PAYROLL AND BENEFITS ASSISTANT - TECHNICAL ARCHITECT Work Phone: [facility] [place] Comment on above: Coronary artery dise ase involving coronary bypass graft of [place] heart without angina pectoris (Primary Dx); Chest pain, unspecified type; Mixed hyperlipidemia Start: 03-08-2024 End: 03-08-2024 ambulatory [facility] Start: 02-19-2024 End: 02-19-2024 ambulatory Chelle GARCIA Facility:[facility] Start: 01-01-2024 ambulatory Chelle GARCIA Facil ity:[facility] Start: 12-06-2023 ambulatory Chelle GARCIA Facil ity:[facility] Start: 11-29-2023 End: 11-29-2023 Subsequent hospital visit by physician [facility] Exam Room [facility] Comment on above: Arrived Start: 11-29-2023 End: 11-29-2023 Emergency department patient visit GUSLHAN ARREOLA [facility] Start: 11-29-2023 End: 12-05-2023 Evaluation and management of inpatient Gulshan Arreola DO Work Phone: [facility] Cardiac Post Intervention Progressive Care Unit CPI PCU 4W Comment on above: Closed head injury, initial encounter (Primary Dx); Fall, initial encounter; Pain in both knees, unspecified chronicity Start: 11-07-2023 End: 11-07-2023 ambulatory Chelle GARCIA Facility:[facility] Start: 10-31-2023 End: 10-31-2023 ambulatory Chelle GARCIA Facility:[facility] Start: 10-05-2023 End: 10-05-2023 ambulatory Chelle GARCIA Facility:[facility] Start: 09-14-2023 End: 09-14-2023 Patient encounter procedure Rony Arriaza DMD, MD Work Phone: [facility] Oral Surgery Comment on above: Chronic dental liana s extending to pulp (Primary Dx) Start: 09-14-2023 ambulatory UNKNOWN PROVIDER Facili ty:[facility] Start: 09-05-2023 ambulatory KLEVER ÁLVAREZ Facility :[facility] Start: 09-05-2023 End: 09-05-2023 Patient encounter procedure Rony Arriaza DMD, MD Work Phone: [facility] Oral Surgery Comment on above: Caries (Primary Dx) Start: 08-21-2023 End: 08-21-2023 Office outpatient visit 25 minutes Otfrphilip Corcoran MD Work Phone: [facility] Cardiology Comment on above: CAD in [place] artery ; Dyslipidemia Start: 08-21-2023 End: 08-21-[facility] Start: 07-31-2023 End: 07-31-2023 ambulatory Chelle GARCIA Facility:[facility] Start: 07-14-2023 End: 07-14-2023 Subsequent hospital visit by physician Mingo Gavin APRN - TECHNICAL ARCHITECT Work Phone: [facility] Non-Invasive Cardiology Comment on above: 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; Stable angina pectoris Start: 07-13-2023 Documentation procedure Loretta oates RN [facility] Non-Invasive Cardiology Start: 07-13-2023 End: 07-13-2023 ambulatory [facility] Work Phone: Start: 07-13-2023 End: 07-13-2023 Departed Referred [facility] - [address] Start: 06-06-2023 End: 06-06-2023 ambulatory CHELLE TRONCOSO Facility:[facility] Start: 06-06-2023 End: 06-06-2023 Patient encounter procedure Marixa Stephens MD Work Phone: [facility] Comment on above: Type 2 diabetes ran itus without retinopathy (HCC) (Primary Dx); Nonexudative age-related macular degeneration, bilateral, early dry stage; Cataract, nuclear sclerotic, both eyes Start: 05-12-2023 End: 05-12-2023 Office outpatient visit 25 minutes Mingo Gavin APRN - TECHNICAL ARCHITECT Work Phone: [facility] Cardiology Comment on above: 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 (Primary Dx); Stable angina pectoris Start: 05-02-2023 End: 05-02-2023 ambulatory [facility] Work Phone: Start: 05-02-2023 End: 05-02-2023 [facility]ed [facility] [address] Start: 04-24-2023 Documentation procedure Loretta oates RN [facility] Non-Invasive Cardiology Start: 04-24-2023 Telephone encounter Indy esqueda PA-C Work Phone: [facility] Cardiology Start: 04-23-2023 End: 04-24-2023 Emergency department patient visit Gulshan Arreola Work Phone: [facility] Clinical Decision Unit CDU Comment on above: Chest pain, unspecif ied type (Primary Dx); Other chest pain Start: 02-22-2023 End: 02-22-2023 Office outpatient visit 25 minutes Suzy Corcoran MD Work Phone: [facility] Cardiology Comment on above: 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 (Primary Dx); Dyslipidemia Start: 12-13-2022 End: 12-13-2022 Office outpatient visit 40 minutes David Rodriguez MD Work Phone: [facility] General Surgery Comment on above: Functional diarrhea (Primary Dx) Start: 12-01-2022 End: 12-01-2022 [facility] Work Phone: Start: 12-01-2022 End: 12-01-2022 [facility]arted [facility] [address] Start: 10-13-2022 End: 10-13-2022 ambulatory [facility] Work Phone: Start: 10-13-2022 End: 10-13-2022 Departed [facility] [address] Start: 10-12-2022 End: 10-12-2022 ambulatory [facility] Work Phone: Start: 10-12-2022 End: 10-12-2022 Departed [facility] [address] Start: 10-12-[address] [facility] - [address] Start: 07-18-2022 End: 07-18-2022 Subsequent hospital visit by physician Chelle Troncoso Work Phone: [facility] Comment on above: Irritable bowel synd sage with both constipation and diarrhea (Primary Dx); Anemia, unspecified; Mixed irritable bowel syndrome; Encounter for screening for malignant neoplasm of colon Start: 06-07-2022 End: 06-07-2022 Office outpatient new 45 minutes David Rodriguez MD Work Phone: [facility] General Surgery Comment on above: Irritable bowel synd sage with both constipation and diarrhea (Primary Dx) Start: 05-06-2022 End: 05-06-2022 Patient encounter procedure Wilma Herb OD Work Phone: [facility] Comment on above: Type 2 diabetes ran itus without retinopathy (HCC) (Primary Dx); Nonexudative age-related macular degeneration, bilateral, early dry stage; Cataract, nuclear sclerotic, both eyes; Papilloma of left upper eyelid; Tearing eyes Start: 04-27-2022 End: 04-27-2022 Subsequent hospital visit by physician Alicia [facility] Comment on above: 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; Other congestive heart failure (HCC) Start: 05-06-2019 End: 05-06-2019 Emergency department patient visit Barry Guadalupe MD Work Phone: [facility] ED Comment on above: Hyperkalemia (Primar y Dx); Acute renal failure, unspecified acute renal failure type (HCC) Start: 05-01-2019 End: 05-01-2019 Subsequent hospital visit by physician Haydee Lai MD Work Phone: [facility] [employer] [facility] Start: 04-12-2019 End: 04-12-2019 Emergency department patient visit James Begum MD Work Phone: [facility] Comment on above: Acute exacerbation o f chronic low back pain (Primary Dx) Start: 08-09-2018 Patient encounter procedure Melquiades Gaming [facility] Start: 12-29-2017 Patient encounter Melquiades Colon [facility] Start: 12-17-2017 Emergency department patient visit Pedro Rincon [facility] Start: 11-03-2017 Emergency department patient visit UNKNOWN PROVIDER [facility] Start: 10-16-2017 Evaluation and management of inpatient Stacey Clemons [facility] Start: 10-13-2017 Patient encounter Stacey Clemons [facility] Start: 09-24-2017 Emergency department patient visit Willy Reeder [facility] Start: 08-07-2017 Evaluation and management of inpatient UNKNOWN PROVIDER [facility] Start: 09-28-2006 End: 09-28-2006 Patient encounter procedure Elin Munozmar Work Phone: [facility] Start: 09-28-2006 Results Only Elin Estefani hernandez Work Phone: [facility] Procedures Date Procedure Procedure Detail Performing Clinician Start: 07-17-2024 Glucose quantitative blood xcpt reagent strip Delisa Courtney MD Work Phone: Start: 07-17-2024 Glucose quantitative blood xcpt reagent strip Delisa Courtney MD Work Phone: Start: 07-17-2024 Glucose quantitative blood xcpt reagent strip Delisa Courtney MD Work Phone: Start: 07-17-2024 Comprehensive metabo lic panel Bethany Sandhu MD Work Phone: Start: 07-16-2024 End: 07-16-2024 Blood count hematocrit Delisa Courtney MD Work Phone: Start: 07-16-2024 Glucose quantitative blood xcpt reagent strip Delisa Courtney MD Work Phone: Start: 07-16-2024 Glucose quantitative blood xcpt reagent strip Delisa Courtney MD Work Phone: Start: 07-16-2024 End: 07-16-2024 Egd transoral control bleeding any method Jaret Blackwood DO Work Phone: Start: 07-16-2024 Glucose quantitative blood xcpt reagent strip Delisa Courtney MD Work Phone: Start: 07-16-2024 Comprehensive metabo lic panel Bethany Sandhu MD Work Phone: Start: 07-16-2024 Blood count hematocrit Bethany Sandhu MD Work Phone: Start: 07-15-2024 Glucose quantitative blood xcpt reagent strip Bethany Sandhu MD Work Phone: Start: 07-15-2024 Blood count hematocrit Bethany Sandhu MD Work Phone: Start: 07-15-2024 Blood gases any combination ph pco2 po2 co2 hco3 Bethany Sandhu MD Work Phone: Start: 07-15-2024 Glucose quantitative blood xcpt reagent strip Amanuel Parisi MD Work Phone: Start: 07-15-2024 SARS-COV-2, FLU A/B, AND RSV COMBO Amanuel Parisi MD Work Phone: Start: 07-15-2024 Radiologic exam ches t single view Amanuel Parisi MD Work Phone: Start: 07-15-2024 Antibody screen CHELLE TRONCOSO Comment on above: Performed By: #### L [id number] ####Nurse Research: CLARE SIMONS ([id number])[facility] BLOOD [facility] ([facility])[address] Start: 07-15-2024 Blood typing serologic abo Amanuel Parisi MD Work Phone: Start: 07-15-2024 End: 07-15-2024 Comprehensive metabolic panel Amanuel Parisi MD Work Phone: Start: 06-27-2024 Urnls dip stick/tabl et rgnt auto w/o microscopy Pepe Marino MD Work Phone: Start: 06-04-2024 Glucose quantitative blood xcpt reagent strip Manjinder Sanchez MD Work Phone: Start: 06-04-2024 Glucose quantitative blood xcpt reagent strip Manjinder Sanchez MD Work Phone: Start: 06-04-2024 Glucose quantitative blood xcpt reagent strip Manjinder Sanchez MD Work Phone: Start: 06-04-2024 Comprehensive metabo lic panel Krissy Murillo PAYROLL AND BENEFITS ASSISTANT - TECHNICAL ARCHITECT Work Phone: Start: 06-03-2024 Glucose quantitative blood xcpt reagent strip Manjinder Sanchez MD Work Phone: Start: 06-03-2024 Glucose quantitative blood xcpt reagent strip Manjinder Sanchez MD Work Phone: Start: 06-03-2024 Glucose quantitative blood xcpt reagent strip Manjinder Sanchez MD Work Phone: Start: 06-03-2024 End: 06-03-2024 Comprehensive metabolic panel Krissy Murillo PAYROLL AND BENEFITS ASSISTANT - TECHNICAL ARCHITECT Work Phone: Start: 06-02-2024 Glucose quantitative blood xcpt reagent strip Manjinder Sanchez MD Work Phone: Start: 06-02-2024 OXYGEN THERAPY Jaymie Perez PA-C Work Phone: Start: 06-02-2024 Glucose quantitative blood xcpt reagent strip Manjinder Sanchez MD Work Phone: Start: 06-02-2024 Glucose quantitative blood xcpt reagent strip Manjinder Sanchez MD Work Phone: Start: 06-02-2024 Glucose quantitative blood xcpt reagent strip Manjinder Sanchez MD Work Phone: Start: 06-02-2024 OXYGEN THERAPY Jaymie Perez PA-C Work Phone: Start: 06-02-2024 OXYGEN THERAPY Jaymie Perez PA-C Work Phone: Start: 06-02-2024 Basic metabolic pane l calcium total Haydee Willis DO Work Phone: Start: 06-02-2024 Manual Differential panel - Blood Jaymie Perez PA-C Work Phone: Start: 06-01-2024 Glucose quantitative blood xcpt reagent strip Jonas Gomez MD Work Phone: Start: 06-01-2024 Glucose quantitative blood xcpt reagent strip Jonas Gomez MD Work Phone: Start: 06-01-2024 Glucose quantitative blood xcpt reagent strip Jonas Gomez MD Work Phone: Start: 06-01-2024 OXYGEN THERAPY Haydee Mil ls DO Work Phone: Start: 06-01-2024 Glucose quantitative blood xcpt reagent strip Jonas Gomez MD Work Phone: Start: 06-01-2024 Basic metabolic pane l calcium total Haydee Willis DO Work Phone: Start: 05-31-2024 Glucose quantitative blood xcpt reagent strip Jonas Gomez MD Work Phone: Start: 05-31-2024 Glucose quantitative blood xcpt reagent strip Jonas Gomez MD Work Phone: Start: 05-31-2024 Glucose quantitative blood xcpt reagent strip Haydee Willis DO Work Phone: Start: 05-31-2024 Glucose quantitative blood xcpt reagent strip Haydee Willis DO Work Phone: Start: 05-31-2024 Radiologic exam ches t single view Haydee Willis DO Work Phone: Start: 05-31-2024 Glucose quantitative blood xcpt reagent strip Haydee Willis DO Work Phone: Start: 05-31-2024 Basic metabolic pane l calcium total Haydee Willis DO Work Phone: Start: 05-31-2024 Manual Differential panel - Blood Jaymie Perez PA-C Work Phone: Start: 05-30-2024 Glucose quantitative blood xcpt reagent strip Haydee Willis DO Work Phone: Start: 05-30-2024 Glucose quantitative blood xcpt reagent strip Haydee Willis DO Work Phone: Start: 05-30-2024 Iaadiadoo not otherw ise specified Haydee Willis DO Work Phone: Start: 05-30-2024 Urinalysis complete panel - Urine Haydee Willis [employer] Work Phone: Start: 05-30-2024 Urnls dip stick/tabl et rgnt auto w/o microscopy Haydee Willis DO Work Phone: Start: 05-30-2024 Assay of troponin quantitative Arsh Mar MD Work Phone: Start: 05-30-2024 Blood gases any combination ph pco2 po2 co2 hco3 Haydee Willis [employer] Work Phone: Start: 05-30-2024 Iadna s aureus methi cillin resist amp probe tq Haydee Willis DO Work Phone: Start: 05-30-2024 Glucose quantitative blood xcpt reagent strip Haydee Willis DO Work Phone: Start: 05-30-2024 Assay of troponin quantitative Arsh Mar MD Work Phone: Start: 05-30-2024 End: 05-30-2024 Bacteria identified in Blood by Culture Arsh Mar MD Work Phone: Start: 05-30-2024 Blood gases any combination ph pco2 po2 co2 hco3 Arsh Mar MD Work Phone: Start: 05-30-2024 Basic metabolic pane l calcium total Arsh Mar MD Work Phone: Start: 05-30-2024 Manual differential performed [Presence] in Blood Arsh Mar MD Work Phone: Start: 05-30-2024 Radiologic exam ches t single view Arsh Mar MD Work Phone: Start: 05-30-2024 Respiratory pathogen s DNA and RNA panel - Nasopharynx by JOAN with non-probe detection Haydee Willis DO Work Phone: Start: 05-30-2024 SARS-COV-2, FLU A/B, AND RSV COMBO Arsh Mar MD Work Phone: Start: 05-30-2024 Ecg routine ecg w/le ast 12 lds trcg only w/o i&r Arsh Mar MD Work Phone: Start: 05-13-2024 Urnls dip stick/tabl et rgnt auto w/o microscopy Pepe Marino MD Work Phone: Start: 05-13-2024 Follow-up visit CHELLE TRONCOSO Start: 03-08-2024 Ecg routine ecg w/le ast 12 lds trcg only w/o i&r Suzy Corcoran MD Work Phone: Start: 03-08-2024 Follow-up visit CHELLE TRONCOSO Start: 12-05-2023 Glucose quantitative blood xcpt reagent strip Romario Munoz MD Work Phone: Start: 12-05-2023 Glucose quantitative blood xcpt reagent strip Romario Munoz MD Work Phone: Start: 12-05-2023 Comprehensive metabo lic panel Flori Strickland MD Work Phone: Start: 12-04-2023 Glucose quantitative blood xcpt reagent strip Flori Strickland MD Work Phone: Start: 12-04-2023 Glucose quantitative blood xcpt reagent strip Flori Strickland MD Work Phone: Start: 12-04-2023 Glucose quantitative blood xcpt reagent strip Flori Strickland MD Work Phone: Start: 12-04-2023 Glucose quantitative blood xcpt reagent strip Flori Strickland MD Work Phone: Start: 12-04-2023 Glucose quantitative blood xcpt reagent strip Flori Strickland MD Work Phone: Start: 12-04-2023 Comprehensive metabo lic panel Flori Strickland MD Work Phone: Start: 12-03-2023 Culture bacterial quanttative colony count urine Flori Strickland MD Work Phone: Start: 12-03-2023 Urinalysis complete panel - Urine Flori Strickland MD Work Phone: Start: 12-03-2023 Glucose quantitative blood xcpt reagent strip Flori Strickland MD Work Phone: Start: 12-03-2023 Glucose quantitative blood xcpt reagent strip Flori Strickland MD Work Phone: Start: 12-03-2023 Glucose quantitative blood xcpt reagent strip Flori Strickland MD Work Phone: Start: 12-03-2023 Glucose quantitative blood xcpt reagent strip Flori Strickland MD Work Phone: Start: 12-03-2023 Comprehensive metabo lic panel Flori Strickland MD Work Phone: Start: 12-02-2023 Glucose quantitative blood xcpt reagent strip Flori Strickland MD Work Phone: Start: 12-02-2023 Glucose quantitative blood xcpt reagent strip Flori Strickland MD Work Phone: Start: 12-02-2023 Glucose quantitative blood xcpt reagent strip Flori Strickland MD Work Phone: Start: 12-02-2023 Glucose quantitative blood xcpt reagent strip Flori Strickland MD Work Phone: Start: 12-02-2023 Comprehensive metabo lic panel Flori Strickland MD Work Phone: Start: 12-01-2023 Glucose quantitative blood xcpt reagent strip Flori Strickland MD Work Phone: Start: 12-01-2023 Glucose quantitative blood xcpt reagent strip Flori Strickland MD Work Phone: Start: 12-01-2023 Glucose quantitative blood xcpt reagent strip Flori Strickland MD Work Phone: Start: 12-01-2023 Mra head w/o contrst material Flori Strickland MD Work Phone: Start: 12-01-2023 Glucose quantitative blood xcpt reagent strip Flori Strickland MD Work Phone: Start: 12-01-2023 Comprehensive metabo lic panel Flori Strickland MD Work Phone: Start: 11-30-2023 Glucose quantitative blood xcpt reagent strip Flori Strickland MD Work Phone: Start: 11-30-2023 Glucose quantitative blood xcpt reagent strip Flori Strickland MD Work Phone: Start: 11-30-2023 Radiologic exam ches t single view Flori Strickland MD Work Phone: Start: 11-30-2023 Radiologic exam abdo men 1 view Flori Strickland MD Work Phone: Start: 11-30-2023 Glucose quantitative blood xcpt reagent strip Flori Strickland MD Work Phone: Start: 11-30-2023 TTE w or wo fol wcon,Doppler Lorenza Bowles MD Work Phone: Start: 11-30-2023 Glucose quantitative blood xcpt reagent strip Flori Strickland MD Work Phone: Start: 11-30-2023 Comprehensive metabo lic panel Lorenza Bowles MD Work Phone: Start: 11-30-2023 Lipid panel Lorenza Bowles MD Work Phone: Start: 11-30-2023 Assay of troponin quantitative Lorenza Bowles MD Work Phone: Start: 11-30-2023 Lipid 1996 panel - S delano or Plasma Wr 1 Start: 11-29-2023 End: 11-29-2023 Comprehensive metabolic panel Sergio Ruff DO Work Phone: Start: 11-29-2023 Ecg routine ecg w/le ast 12 lds trcg only w/o i&r Sergio Ruff DO Work Phone: Start: 11-29-2023 Ct cervical spine w/ o contrast material Gulshan Arreola DO Work Phone: Start: 11-29-2023 Ct head/brain w/o co ntrast material Gulshan Arreola DO Work Phone: Start: 11-29-2023 Glucose quantitative blood xcpt reagent strip Gulshan Arreola DO Work Phone: Start: 09-14-2023 alveoloplasty in conjunction with extractions - four or more teeth or tooth spaces, per quadrant Jacqui Glass VedicisS Work Phone: Start: 09-14-2023 extraction, erupted tooth or exposed root (elevation and/or forceps removal) Jacqui Glass DDS Work Phone: Start: 09-06-2023 panoramic radiograph ic image Wayne Gupta DDS Work Phone: Start: 08-21-2023 Follow-up visit CHELLE TRONCOSO Start: 07-14-2023 TTE w or w/o contr, cont ECG Mingo De Souza Leslye PAYROLL AND BENEFITS ASSISTANT - TECHNICAL ARCHITECT Work Phone: Start: 04-24-2023 Glucose quantitative blood xcpt reagent strip Robbie Mckeon MD Work Phone: Start: 04-24-2023 Glucose quantitative blood xcpt reagent strip Gulshan Arreola DO Work Phone: Start: 04-24-2023 Ecg routine ecg w/le ast 12 lds trcg only w/o i&r Maya Girard PAYROLL AND BENEFITS ASSISTANT - TECHNICAL ARCHITECT Work Phone: Start: 04-24-2023 Comprehensive metabo lic panel Maya Girard PAYROLL AND BENEFITS ASSISTANT - TECHNICAL ARCHITECT Work Phone: Start: 04-24-2023 Lipid panel Maya Nayak PAYROLL AND BENEFITS ASSISTANT - TECHNICAL ARCHITECT Work Phone: Start: 04-24-2023 Lipid 1996 panel - S del[place] or Plasma Gulshan Arreola DO Work Phone: Start: 04-24-2023 Assay of troponin quantitative Gulshan Arreola DO Work Phone: Start: 04-23-2023 Radiologic exam ches t single view Gulshan Arreola DO Work Phone: Start: 04-23-2023 Basic metabolic pane l calcium total Gulshan Arreola DO Work Phone: Start: 04-23-2023 Ecg routine ecg w/le ast 12 lds trcg only w/o i&r Gulshan Arreola DO Work Phone: Start: 07-18-2022 Colonoscopy Chelle Gandhi abel Work Phone: Start: 05-06-2022 Computerized ophthal martita imaging retina Wilma Grant OD Work Phone: Start: 04-27-2022 TTE w or wo fol Campos russell Otkillian Corcoarn MD Work Phone: Start: 04-13-2022 Lipid 1996 panel - S del[place] or Plasma [facility] Start: 05-06-2019 Basic metabolic pane l calcium total Barry Guadalupe MD Work Phone: Start: 05-06-2019 End: 05-06-2019 Ecg routine ecg w/least 12 lds w/i&r Barry Guadalupe MD Work Phone: Start: 05-01-2019 End: 05-01-2019 Radiologic exam both knees standing anteropost Haydee Lai MD Work Phone: Start: 05-23-2017 Colonoscopy [facility] Start: 09-28-2006 CONVERTED SURGICAL PATHOLOGY Elin Good Work Phone: Plan of Treatment Date Care Activity Detail Author Start: 11-28-2033 DTaP/Tdap/Td Vaccines (2 - Td or Tdap) DTaP/Tdap/Td Vaccines (2 - Td or Tdap) [facility] Start: 07-18-2032 Screening for malignant neoplasm of colon [facility] Start: 05-23-2027 Colon cancer screen colonoscopy Colon cancer screen colonoscopy [facility] Work Phone: Start: 05-23-2027 Screening for malignant neoplasm of colon [facility] Start: 07-17-2025 Creatinine measurement Creatinine Level [facility] Start: 07-17-2025 Diabetes: Estimated Glomerular Filtration Rate for Kidney Health Diabetes: Estimated Glomerular Filtration Rate for Kidney Health [facility] Start: 07-17-2025 Potassium measurement Potassium Level [facility] Start: 07-15-2025 Hemoglobin A1c measurement Diabetes: Hemoglobin A1C [facility] Start: 06-04-2025 Creatinine measurement Creatinine Level [facility] Start: 06-04-2025 Diabetes: Estimated Glomerular Filtration Rate for Kidney Health Diabetes: Estimated Glomerular Filtration Rate for Kidney Health [facility] Start: 06-04-2025 Potassium measurement Potassium Level [facility] Start: 06-02-2025 Creatinine measurement Creatinine Level [facility] Start: 06-02-2025 Diabetes: Estimated Glomerular Filtration Rate for Kidney Health Diabetes: Estimated Glomerular Filtration Rate for Kidney Health [facility] Start: 06-02-2025 Potassium measurement Potassium Level [facility] Start: 03-08-2025 Creatinine measurement Creatinine Level [facility] Start: 03-08-2025 Diabetes: Estimated Glomerular Filtration Rate for Kidney Health Diabetes: Estimated Glomerular Filtration Rate for Kidney Health [facility] Start: 03-08-2025 Potassium measurement Potassium Level [facility] Start: 02-27-2025 Glaucoma screening Diabetes: Retinopathy Screening [facility] Start: 12-16-2024 Influenza vaccination Influenza Vaccine (Season Ended) [facility] Start: 12-04-2024 Creatinine measurement Creatinine Level [facility] Start: 12-04-2024 Diabetes: Estimated Glomerular Filtration Rate for Kidney Health Diabetes: Estimated Glomerular Filtration Rate for Kidney Health [facility] Start: 12-04-2024 Potassium measurement Potassium Level [facility] Start: 12-01-2024 Glaucoma screening Diabetes: Retinopathy Screening [facility] Start: 11-30-2024 Creatinine measurement Creatinine Level [facility] Start: 11-30-2024 Diabetes: Estimated Glomerular Filtration Rate for Kidney Health Diabetes: Estimated Glomerular Filtration Rate for Kidney Health [facility] Start: 11-30-2024 Potassium measurement Potassium Level [facility] Start: 11-29-2024 [facility] Start: 11-29-2024 Hemoglobin A1c measurement Diabetes: Hemoglobin A1C [facility] Start: 11-29-2024 Lipid panel Lipid Panel [facility] Start: 09-27-2024 End: 09-27-2024 Patient encounter procedure 09/27/2024 10:30 AM EDT Office Visit [facility] [place] [address] [place] [phone] Pepe Marino MD [address] [place] [address] [facility] [place] Start: 08-05-2024 End: 08-05-2024 Patient encounter procedure 08/05/2024 10:00 AM EDT Office Visit [facility] [place] [address] [place] [place] [address] Suzy Corcoran MD [address] [place] [address] [facility] Start: 07-31-2024 End: 07-31-2024 Patient encounter procedure 07/31/2024 1:40 PM EDT Office Visit [facility] Pulmonary and Sleep Medicine [facility] [address] [place] [address] Viki Ball APRN [facility] [address] [place] [address] [facility] Sleep [facility] Start: 06-27-2024 End: 12-28-2024 PSA, Monitoring ([facility]) PSA, Monitoring ([facility]) Lab Routine Elevated PSA Expected: 06/27/2024 (Approximate), Expires: 12/28/2024 [facility] Work Phone: Comment on above: Expected: 06/27/2024 (Approximate), Expi res: 12/28/2024 Start: 06-27-2024 End: 06-27-2024 Patient encounter procedure 06/27/2024 11:20 AM EDT Procedure Visit [facility] [place] [address] [place] [phone] Pepe Marino MD [address] [place] [address] [facility] [place] Start: 06-19-2024 End: 06-19-2024 Patient encounter procedure 06/19/2024 11:40 AM EST Office Visit [facility] [place] [address] [place] [address] Viki Ball APRN - TECHNICAL ARCHITECT [address], [place] [address] [facility] Pul[facility] Sleep Medicine [facility] Start: 06-06-2024 Glaucoma screening Dilated Retinal Exam [facility] Start: 06-04-2024 End: 06-04-2025 Nasal Cannula- Oxygen Therapy Nasal Cannula- Oxygen Therapy Respiratory Care Routine Acute hypercapnic respiratory failure (HCC) Expected: 06/04/2024 (Approximate), Expires: 06/04/2025 [facility] Work Phone: Comment on above: Expected: 06/04/2024 (Approximate), Expi res: 06/04/2025 Start: 05-13-2024 End: 11-10-2024 PSA, Monitoring ([facility]) PSA, Monitoring ([facility]) Lab Routine Elevated PSA Expected: 05/13/2024 (Approximate), Expires: 11/10/2024 [facility] Work Phone: Comment on above: Expected: 05/13/2024 (Approximate), Expi res: 11/10/2024 Start: 05-13-2024 End: 05-13-2025 XR Abdomen Single view XR abdomen 1 view Imaging Routine Recurrent UTI Expected: 05/13/2024, Expires: 05/13/2025 [facility] Comment on above: Expected: 05/13/2024, Expires: Start: 05-13-2024 End: 05-13-2024 Patient encounter procedure 05/13/2024 1:00 PM EST Office Visit [facility] [place] [address] [place] [phone] Pepe Marino MD [address] [place] [address] [facility] [place] Start: 04-24-2024 Creatinine measurement [facility] Start: 04-24-2024 Hepatitis B surface antibody level LDL Cholesterol [facility] Start: 04-24-2024 Lipid panel [facility] Start: 04-24-2024 Potassium measurement Potassium Level [facility] Start: 02-21-2024 End: 02-21-2024 Patient encounter procedure 02/21/2024 10:00 AM EST Office Visit [facility] Cardiology [address] [place] [phone] Che Alegria, PAYROLL AND BENEFITS ASSISTANT - TECHNICAL ARCHITECT [address] [address] [facility] Start: 01-13-2024 Hemoglobin A1c measurement Hemoglobin A1C [facility] Start: 12-17-2023 COVID-19 Vaccine ( season) COVID-19 Vaccine () [facility] Start: 12-17-2023 Influenza vaccination [facility] Start: 12-02-2023 [facility] Start: 08-21-2023 End: 08-21-2023 Patient encounter procedure [facility] Start: 07-14-2023 End: 07-14-2023 Patient encounter procedure 07/14/2023 11:00 AM EDT Appointment [facility] Non-Invasive Cardiology [address] [place] [phone] Mingo Gavin, PAYROLL AND BENEFITS ASSISTANT - TECHNICAL ARCHITECT [address] [place] [address] [facility] Non-Invasive Cardiology Start: 05-12-2023 End: 05-12-2025 Stress echocardiogram (TTE) dobutamine with contrast, bubble, strain, and 3D PRN order panel Stress echocardiogram (TTE) dobutamine with contrast, bubble, strain, and 3D PRN order panel CV Stress Echocardiography Routine Coronary artery disease involving seneca-cayuga coronary artery of seneca-cayuga heart without angina pectoris Stable angina pectoris Expected: 05/12/2023 (Approximate), Expires: 05/12/2025 [facility] Work Phone: Comment on above: Expected: 05/12/2023 (Approximate), Expi res: 05/12/2025 Start: 05-12-2023 End: 05-12-2023 Patient encounter procedure 05/12/2023 10:00 AM EST Office Visit [facility] Cardiology [address] [place] [address] Mingo Gavin, PAYROLL AND BENEFITS ASSISTANT - TECHNICAL ARCHITECT [address] [place] [address] [facility] Start: 05-06-2023 Hepatitis C antibody, confirmatory test DILATED RETINAL EXAM [facility] Start: 05-05-2023 End: 05-05-2023 Patient encounter procedure 05/05/2023 11:30 AM EST Office Visit [facility] Cardiology [address] [place] [phone] Miranda Griffin, PAYROLL AND BENEFITS ASSISTANT - TECHNICAL ARCHITECT [address] [address] [facility] Start: 05-05-2023 End: 05-05-2023 Patient encounter procedure 05/05/2023 8:30 AM EST Office Visit [facility] Cardiology [address] [place] [phone] Mingo Gavin, PAYROLL AND BENEFITS ASSISTANT - TECHNICAL ARCHITECT [address] [place] [address] [facility] Start: 04-27-2023 Echocardiography Echocardiogram [facility] Start: 04-17-2023 Advance Directive Discussion Advance Directive Discussion [facility] Start: 04-17-2023 Depression Assessment Depression Assessment [facility] Start: 04-13-2023 Creatinine measurement Creatinine Level [facility] Start: 04-13-2023 Lipid panel Lipid Panel [facility] Start: 04-13-2023 Potassium measurement Potassium Level [facility] Start: 02-27-2023 End: 02-27-2023 Patient encounter procedure 02/27/2023 10:30 AM EST Office Visit [facility] Cardiology [address] [place] [phone] Suzy Corcoran MD [address] [place] [address] [facility] Start: 12-16-2022 COVID-19 Vaccine ( season) COVID-19 Vaccine ( season) [facility] Start: 12-16-2022 COVID-19 Vaccine () COVID-19 Vaccine () [facility] Start: 12-16-2022 COVID-19 Vaccine () COVID-19 Vaccine () [facility] Start: 12-16-2022 Influenza vaccination [facility] Start: 08-05-2022 End: 08-05-2022 Patient encounter procedure 08/05/2022 Office Visit Cardiology Mingo Gavin, PAYROLL AND BENEFITS ASSISTANT - TECHNICAL ARCHITECT [address] [place] [address] [facility] Start: 07-18-2022 End: 07-18-2022 Colonoscopy flx dx w/collj spec when pfrmd COLONOSCOPY Anemia, unspecified Mixed irritable bowel syndrome Encounter for screening for malignant neoplasm of colon 07/18/2022 2:23 PM EDT [facility] Start: 07-18-2022 End: 07-18-2022 Esophagogastroduodenoscopy transoral diagnostic EGD DIAGNOSTIC Anemia, unspecified Mixed irritable bowel syndrome Encounter for screening for malignant neoplasm of colon 07/18/2022 2:23 PM EDT [facility] Start: 07-15-2022 End: 07-15-2022 Patient encounter procedure 07/15/2022 Office Visit Cardiology Mingo Gavin PAYROLL AND BENEFITS ASSISTANT - TECHNICAL ARCHITECT [address] [place] [address] [facility] Start: 06-29-2022 COVID-19 Vaccine (7 - Pfizer series) COVID-19 Vaccine (7 - Pfizer series) [facility] Start: 04-17-2022 ADVANCE DIRECTIVE DISCUSSION ADVANCE DIRECTIVE DISCUSSION [facility] Start: 04-17-2022 DEPRESSION ASSESSMENT DEPRESSION ASSESSMENT [facility] Start: 12-16-2021 Influenza vaccination [facility] Start: 12-17-2019 Influenza vaccination INFLUENZA (#1) [facility] Start: 08-14-2019 End: 08-14-2019 Patient encounter procedure 08/14/2019 Office Visit Urology Wilma Powell PA-C [address] [facility] [address] [place] [address] [phone] [facility] Start: 12-17-2018 Creatinine monitoring Creatinine monitoring [facility] Work Phone: Start: 12-17-2018 Potassium monitoring Potassium monitoring [facility] Work Phone: Start: 12-16-2018 Influenza vaccination Flu vaccine (#1) [facility] Work Phone: Start: 10-19-2018 A1C test (Diabetic or Prediabetic) A1C test (Diabetic or Prediabetic) [facility] Work Phone: Start: 09-24-[address] lung screening Low dose CT lung screening [facility] Work Phone: Start: 04-22-2018 Hemoglobin A1c measurement HbA1C [facility] Start: 09-01-2017 Diabetes: Urine Albumin-Creatinine Ratio for Kidney Health Diabetes: Urine Albumin-Creatinine Ratio for Kidney Health [facility] Start: 09-01-2017 Diabetic microalbuminuria test Diabetic microalbuminuria test [facility] Work Phone: Start: 06-07-2017 Hemoglobin A1c/Hemoglobin.total in Blood HBA1C [facility] Start: 05-10-2017 Lipid screen Lipid screen [facility] Work Phone: Start: 10-04-2016 3 comp foot exam completed Diabetic foot exam [facility] Work Phone: Start: 2016 Hepatitis B (HBV) Vaccine (optional start 60+ years) Hepatitis B (HBV) Vaccine (optional start 60+ years) [facility] Start: 2016 Hepatitis B Vaccines (1 of 3 - Risk 3-dose series) Hepatitis B Vaccines (1 of 3 - Risk 3-dose series) [facility] Start: 2016 RSV Immunization aged 60 or older (1 - 1-dose 60+ series) RSV Immunization aged 60 or older (1 - 1-dose 60+ series) [facility] Start: 2016 RSV Immunization for Adults (1 - Risk 60-74 years 1-dose series) RSV Immunization for Adults (1 - Risk 60-74 years 1-dose series) [facility] Start: 2016 RSV Vaccine (1 - 1-dose 60+ series) RSV Vaccine (1 - 1-dose 60+ series) [facility] Start: 2016 RSV vaccine (optional 60+ years) RSV vaccine (optional 60+ years) [facility] Start: 02-16-2016 Pneumococcal Vaccine: 50+ Years (2 of 2 - PCV) Pneumococcal Vaccine: 50+ Years (2 of 2 - PCV) [facility] Start: 02-16-2016 Pneumococcal Vaccine: 65+ Years (2 - PCV) Pneumococcal Vaccine: 65+ Years (2 - PCV) [facility] Start: 02-16-2016 Pneumococcal Vaccine: 65+ Years (2 of 2 - PCV) Pneumococcal Vaccine: 65+ Years (2 of 2 - PCV) [facility] Start: 09-20-2014 Pneumococcal Vaccine: 65+ (2 of 2 - PCV) Pneumococcal Vaccine: 65+ (2 of 2 - PCV) [facility] Start: 10-04-2011 PROSTATE CANCER SCREENING DISCUSSION PROSTATE CANCER SCREENING DISCUSSION [facility] Start: 10-04-2011 Prostate specific antigen measurement Prostate Cancer Screening Discussion [facility] Start: 2006 Screening for malignant neoplasm of lung Lung Cancer Screening [facility] Start: 2006 Shingles (RZV) Vaccine (1 of 2) Shingles (RZV) Vaccine (1 of 2) [facility] Start: 2006 Shingles Vaccine (1 of 2) Shingles Vaccine (1 of 2) [facility] Work Phone: Start: 2006 SHINGRIX VACCINE (1 of 2) SHINGRIX VACCINE (1 of 2) [facility] Start: 2006 Tuberculosis screening COLORECTAL CANCER SCREENING,SEE MODIFIER [facility] Start: 2006 Zoster Vaccines (1 of 2) Zoster Vaccines (1 of 2) [facility] Start: 2001 COLOGUARD (FIT-DNA) COLOGUARD (FIT-DNA) [facility] Start: 2001 Colonoscopy COLONOSCOPY [facility] Start: 2001 COLORECTAL CANCER SCREENING COLORECTAL CANCER SCREENING [facility] Start: [address] COLONOGRAPHY [facility] Start: 2001 DIABETES SCREEN DIABETES SCREEN [facility] Start: 2001 FECAL OCCULT BLOOD FECAL OCCULT BLOOD [facility] Start: 2001 Screening for malignant neoplasm of colon [facility] Start: 2001 SIGMOIDOSCOPY SIGMOIDOSCOPY [facility] Start: 10-04-1991 LIPID SCREEN LIPID SCREEN [facility] Start: 1986 Zoledronic acid therapy ALPHA-1 ANTITRYPSIN DEFICIENCY SCREENING [facility] Start: 10-04-1975 DTaP/Tdap/Td Vaccines (1 - Tdap) DTaP/Tdap/Td Vaccines (1 - Tdap) [facility] Start: 10-04-1975 Hepatitis A (HAV) Vaccine (optional start 19+ years) Hepatitis A (HAV) Vaccine (optional start 19+ years) [facility] Start: 10-04-1975 Pneumococcal Vaccine: 50+ Years (1 of 2 - PCV) Pneumococcal Vaccine: 50+ Years (1 of 2 - PCV) [facility] Start: 10-04-1975 Urine microalbumin profile [facility] Start: 10-04-1975 Urine screening for protein Diabetes: Urine Protein Screening [facility] Start: 1974 ANNUAL PCP TEAM CHRONIC DISEASE VISIT ANNUAL PCP TEAM CHRONIC DISEASE VISIT [facility] Start: 1974 Diabetes: Urine Albumin-Creatinine Ratio for Kidney Health Diabetes: Urine Albumin-Creatinine Ratio for Kidney Health [facility] Start: 1974 Hepatitis B surface antibody level LDL CHOLESTEROL [facility] Start: 1974 HEPATITIS C SCREENING HEPATITIS C SCREENING [facility] Start: 1974 Hepatitis C screening [facility] Start: 1974 HIV SCREENING HIV SCREENING [facility] Start: 1974 SPIROMETRY SPIROMETRY [facility] Start: 1974 Tetanus + diphtheria + acellular pertussis vaccine (product) Tdap Booster [facility] Start: 10-04-1971 HIV screen HIV screen [facility] [employer] Phone: Start: 1968 Depression Monitoring Depression Monitoring [facility] Start: 1968 Depression Screening Depression Screening [facility] Start: 10-04-1967 DTaP/Tdap/Td vaccine (1 - Tdap) DTaP/Tdap/Td vaccine (1 - Tdap) [facility] Work Phone: Start: 1966 3 comp foot exam completed DIABETIC FOOT EXAM [facility] Start: 1966 Diabetic foot examination [facility] Start: 1966 Diabetic retinal exam Diabetic retinal exam [facility] Work Phone: Start: 1966 Glaucoma screening Diabetes: Retinopathy Screening [facility] Start: 1966 Hepatitis B screening URINE ALBUMIN:CREATININE RATIO [facility] Start: 1966 Preventive dental service Diabetes: Dental Exam [facility] Start: 1962 Pneumococcal 0-64 years Vaccine (1 of 1 - PPSV23) Pneumococcal 0-64 years Vaccine (1 of 1 - PPSV23) [facility] Work Phone: Start: 1962 Pneumococcal vaccination Pneumococcal Vaccine(s) (65+ yrs) (1 of 2 - PCV) [facility] Start: 1962 Pneumococcal Vaccine: 65+ Years (1 - PCV) Pneumococcal Vaccine: 65+ Years (1 - PCV) [facility] Start: 1962 Pneumococcal Vaccine: 65+ Years (1 of 2 - PCV) Pneumococcal Vaccine: 65+ Years (1 of 2 - PCV) [facility] Start: 1962 PNEUMOCOCCAL: 65+ (1 - PCV) PNEUMOCOCCAL: 65+ (1 - PCV) [facility] Start: 1956 Urine screening for protein Microalbumin [facility] Start: 1956 ABDOMINAL AORTIC ANEURYSM SCREENING ABDOMINAL AORTIC ANEURYSM SCREENING [facility] Start: 1956 Abdominal aortic aneurysm screening Abdominal Aortic Aneurysm Screening [facility] Start: 1956 Annual wellness visit Medicare Initial Physical (IPPE) [facility] Start: 1956 Diabetic foot examination Foot Exam [facility] Start: 1956 Hemoglobin A1c measurement Diabetes: Hemoglobin A1C [facility] Start: 1956 Hepatitis B Vaccines (1 of 3 - 3-dose series) Hepatitis B Vaccines (1 of 3 - 3-dose series) [facility] Start: 1956 Pulmonary Function Testing Pulmonary Function Testing [facility] Start: 06-19-1957 Screening for malignant neoplasm of colon [facility] End: 06-02-2024 Bacteria identified in Lower respiratory specimen by Aerobe culture Respiratory culture and Stain Microbiology Routine Once (Lab) for 1 Occurrences starting 06/02/2024 until 06/02/2024 [facility] Work Phone: Comment on above: Once (Lab) for 1 Occurrences starting until 06/02/2024 Bacteria identified in Urine by Culture Urine culture Microbiology Routine 12/03/2023 11:23 PM EDT [facility] Work Phone: ECG 12 lead ECG 12 lead CV E CG Routine 04/24/2023 7:14 AM EST [facility] Work Phone: ECG 12 lead - CLINIC PERFORMED E CG 12 lead - CLINIC PERFORMED CV ECG Routine Chest pain, unspecified type 03/08/2024 9:24 AM EST [facility] Work Phone: EKG 12 Lead [employer] Work Phone: End: 05-30-2024 Legionella and Streptococcus [facility]igen [facility] Work Phone: Comment on above: Once (Lab) for 1 Occurrences starting until 05/30/2024 Tissue exam Tissue exam Path ology and Cytology Timed Anemia, unspecified Mixed irritable bowel syndrome Encounter for screening for malignant neoplasm of colon Release Upon Ordering for 1 Occurrences starting 07/18/2022 [facility] Work Phone: Comment on above: Release Upon Ordering for 1 Occurrences starting 07/18/2022 Tissue exam [facility] Work Phone: Comment on above: Release Upon Ordering for 1 Occurrences starting 07/16/2024, 1 completed End: 05-30-2024 Urine Hold Cup Urine Hold Cup Lab Timed Once for 1 Occurrences starting 05/30/2024 until 05/30/2024 [facility] Comment on above: Once for 1 Occurrences starting 05/30/19 until 05/30/2024 End: 05-22-2024 US Retroperitoneum [facility] Work Phone: Comment on above: Once for 1 Occurrences starting 05/22/19 until 05/22/2024 Immunizations Immunization Date Immunization Notes Care Provider Navjot flores 11-29-2023 tetanus toxoid, reduced diphtheria toxoid, and acellular pertussis vaccine, adsorbed [facility] 1 [facility] 07-13-2023 Hemoglobin A1C Rony Macdonald i, DMD, MD Work Phone: [facility] 03-01-2022 Pfizer Bivalent (12+ YRS) SARS-COV-2 (COVID-19) vaccine, mRNA, spike protein, LNP, pres. free, 30 mcg/0.3mL dose, jose maria-sucrose (HGP=745) Rony Arriaza DMD, MD Work Phone: [facility] 03-01-2022 Pfizer Monovalent (1 2+ yrs) SARS-COV-2 (COVID-19) vaccine, mRNA, spike protein, LNP, pres. free, 30 mcg/0.3mL dose (LCP=058) Rony Arriaza DMD, MD Work Phone: [facility] 02-04-2022 influenza, injectabl e, quadrivalent, contains preservative Rony Arriaza DMD, MD Work Phone: [facility] 02-04-2022 influenza virus vaccine, unspecified formulation David Chen MD Work Phone: [facility] 09-01-2021 Pfizer Monovalent (1 2+ yrs) SARS-COV-2 (COVID-19) vaccine, mRNA, spike protein, LNP, pres. free, 30 mcg/0.3mL dose (VIB=117) Rony Arriaza DMD, MD Work Phone: [facility] 09-01-2021 Pfizer Monovalent (1 2+ yrs) SARS-COV-2 (COVID-19) vaccine, mRNA, spike protein, LNP, pres. free, 30 mcg/0.3mL dose, jose maria-sucrose (JPZ=131) Rony Arriaza DMD, MD Work Phone: [facility] 02-02-2021 Moderna Monovalent (12+ yrs) COVID-19 vaccine, mRNA, spike protein, LNP, PF, 100 mcg/0.5 mL (FND=168) Rony Arriaza DMD, MD Work Phone: [facility] 02-02-2021 Pfizer Monovalent (1 2+ yrs) SARS-COV-2 (COVID-19) vaccine, mRNA, spike protein, LNP, pres. free, 30 mcg/0.3mL dose (MNZ=922) Rony Arriaza DMD, MD Work Phone: [facility] 01-26-2021 influenza, injectabl e, quadrivalent, contains preservative Rony Arriaza DMD, MD Work Phone: [facility] 01-04-2017 influenza, high dose seasonal, preservative-free James Begum MD Work Phone: [facility] Work Phone: 01-04-2017 influenza virus vaccine, unspecified formulation [facility] 01-08-2015 influenza virus vaccine, unspecified formulation James Begum MD Work Phone: [facility] 01-08-2014 influenza, seasonal, injectable Rony Arriaza DMD, MD Work Phone: [facility] 09-20-2013 pneumococcal Conjugate, unspecified formulation James Begum MD Work Phone: [facility] 01-27-2010 influenza virus vaccine, whole virus Rony Arriaza DMD, MD Work Phone: [facility] Payers Date Payer Category Payer Self-pay 2018 Medicaid 2018 Medicaid MEDICAID [facility] DEPT OF JOB xxxxxxxxxxxx 2018-Present [phone] [address] [place] [address] xxxxxxxxxxxx [id number] 2018 Medicaid [id number] 1955 Unknown [id number] 1956 Unknown [id number] 2..840.1.187913.3.579.2. 1956 Unknown [id number] 2..840.1.039404.3.579.2. 1956 Unknown [id number] 2.840.1.585337.3.579.2. 1956 Unknown [id number] 2.840.1.206361.3.579.2. 1956 Unknown [id number] 2.840.1.610451.3.579.2. 1956 Unknown [id number] 2.840.1.641848.3.579.2. 1956 Unknown [id number] 2.840.1.730674.3.579.2. 1956 Unknown [id number] 2.840.1.706080.3.579.2.732 1956 Unknown [id number] 2.840.1.254316.3.579.2.732 Unknown Unknown [id number] 2.840.1.004034.3.579.2.462 Unknown [id number] 2.840.1.491693.3.579.2.462 Unknown [id number] 2.840.1.247495.3.579.2.462 Unknown [id number] 2.840.1.815893.3.579.2.462 Unknown [id number] 2.840.1.277007.3.579.2.462 Unknown [id number] 2.840.1.419390.3.579.2.462 Unknown [id number] 2.840.1.629321.3.579.2.462 Unknown [id number] 2.16.840.1.028591.3.579.2.462 Unknown [id number] 2.16.840.1.903564.3.579.2.462 Unknown [id number] 2.16.840.1.998994.3.579.2.462 Unknown [id number] 2.16.840.1.372927.3.579.2.462 Social History Date Type Detail Facility Tobacco smoking stat [facility] Unknown if ever smoked [facility] Start: 1955 Sex Assigned At Not on file [facility] Work Phone: Start: 04-28-1973 End: 11-29-2023 Tobacco smoking status NJIS Current every day smoker [facility] Start: 04-28-1973 History of tobacco use Cigarette Smo ker [facility] Start: 04-12-2019 End: 11-30-2023 Cigarettes smoked current (pack per day) - Reported [facility] Start: 04-12-2019 End: 07-16-2024 Alcohol intake Current non-drinker of alcohol (finding) [facility] Phone: Start: 01-26-2017 Alcohol Comment last drinking 1984 [facility] Phone: Start: 12-26-2016 End: 11-29-2023 Tobacco use and exposure Smokeless tobacco non-user [facility] Start: 04-03-2022 End: 12-13-2022 Exposure to SARS-CoV-2 (event) Not sure [facility] Start: 1955 Sex Assigned At Male [facility] Start: 09-02-2022 End: 11-30-2023 Tobacco use panel [facility] Within the last year , have you been afraid of your partner or ex-partner? No [facility] National Score (1-100), lower number is lower risk 79 [facility] Tobacco smoking stat [facility] Tobacco smoking consumption unknown [facility] How often to you hav e a drink containing alcohol? Never [facility] Start: 11-15-2021 End: 07-23-2024 Sex Male (finding) [facility] Medical Equipment Procedure Code Equipment Code Equipment Origin al Text Equipment Identifier Dates USE DIRECTED FOR INSULIN 4 TIMES DAILY [id number] Start: 01-23-2017 Clinical Notes 04-12-2019 to 07-17-2024 Lashay Murcia, PROCESS IMPROVEMENT ANALYST - 07/17/2024 2:24 PM Adelita Forman APRN - TECHNICAL ARCHITECT - 07/17/2024 11:38 AM GAYLAElida Nicholasgrazynaeva - 07/17/2024 9:47 AM Keyla Conklin, OT - 07/16/2024 2:17 PM EDTWalt Instr - [facility] Note Date & Type Note Facility 07-17-2024 History of Present illness Narrative Images from the original note were not included. PHYSICAL THERAPY [facility] Treatment Note Name/MRN: James Reyes ([id number]) Date of : 1955 Age: 68 y.o. Room[facility]Bed: [facility] B Visit #: 1 out of 7 visits Discharge Recommendation: Half-Way Facility Other: TBD at next level of care Prior Level of Function Prior Level of ADL Function: Required Assist Prior Level of Mobility: Independent (with wheelchair); Device: Wheelchair - manual Prior Level of Transfers: Independent - with transfers Assessment Pt tolerated session poorly. He continues to require heavy assist for all aspects of bed mobility. Pt limited by self limiting behaviors and pain. Pt able to sit EOB for ~1 minute before requesting to lay back down. Max encouragement and education provided to pt. Poor understanding. Pt will continue to benefit from skilled PT interventions including strength and functional transfers. Continue to recommend SNF for discharge. Subjective Pt agreeable to therapy. Pt initially declining therapy stating that he is in too much pain and can't move. Increased time encouraging pt and providing education. Observation: O2 and IV in tact Pain: Powers-Mathew Pain Ratin = Hurts whole lot Pain Location: BLE Medical Precautions: No active isolations Proper PPE donned/doffed in accordance with facility standards. Fall Risk: Sr Fall Risk Score: 60 (High Risk) Precautions/Restrictions: Fall Precautions Overall Cognitive Status: WFL Overall Orientation Status: Oriented x4 Family/Caregiver Present: none Objective Bed Mobility Supine to sit: Max Assist Sit to supine: SBA Pt cued for sequencing. Good teach back. Pt took increased time due to very slow and cautious movements. Pt required assist moving LLE and pulling trunk up into sitting position. Pt was able to use momentum to lay back down in bed. No hands on assist required. Exercises Exercises Quad Sets: supine x10 BLE Heelslides: supine x10 BLE Gluteal Sets: supine x10 BLE Knee Long Arc Quad: attempted - pt states significant pain Ankle Pumps: supine x10 BLE Comments: Exercises completed to increase strength and circulation to improve mobility. Pt limited by self limiting behavior and pain. Pt demos mild muscle contractions and decreased ROM for all exericses. Increased time spent educating pt on benefits. Fair understanding. Plan Continue acute PT per plan of care. Safety/Education Safety Safety Devices in place: All fall risk precautions in place, call light within reach, left in bed, and nurse notified Restraints: No Education Education Given To: patient Education Provided: PT Role, PT Goals, Plan of Care, Home Exercise Program, Transfer Training, and Benefits of Increasing Activity Education Method: Verbal, Demonstration, and Teach Back Barriers to Learning: None Education Outcome: Continued Education Needed Outcome Measures AM-PAC AM-PAC Inpatient Mobility Raw Score (No Stairs) : 10 JH-HLM JH-HLM Score: Sat at edge of bed Goals Patient Stated Goal: Patient states he wants to feel better. Encounter Problems Encounter Problems (Active) Balance Patient will maintain static standing balance for 2 minutes with SBA in order to demonstrate decreased risk of falling. (Not Addressed) Start: 07/16/24 Expected End: 07/23/24 Patient will maintain dynamic sitting balance for 10 minutes with modified independence in order to demonstrate improved postural control and prepare for out of bed mobility. (Progressing) Start: 07/16/24 Expected End: 07/23/24 Exercise Patient will complete lower extremity exercises for 1-2 sets / 10 reps in order to improve strength and activity tolerance for mobility. (Progressing) Start: 07/16/24 Expected End: 07/23/24 Mobility Patient will propel the wheelchair for 100 ft and modified independence in order to improve safety and independence with functional mobility. (Not Addressed) Start: 07/16/24 Expected End: 07/23/24 Transfers Patient will perform bed mobility with modified independence in order to improve independence and prepare for out of bed mobility. (Progressing) Start: 07/16/24 Expected End: 07/23/24 Patient will complete functional transfers with rolling walker with modified independence in order to prepare for OOB mobility. (Not Addressed) Start: 07/16/24 Expected End: 07/23/24 Therapy Time Individual Co-treatment Time In 1331 Time Out 1345 Minutes 14 Timed Code Treatment Minutes: 11 Minutes (1 active function) Lashay Murcia PTA Cosigned by Arabella Shen PT at 07/17/2024 3:28 PM EDT Images from the original note were not included. [facility], Pulmonary Medicine [address] [place], [place] [id number] Patient - James Reyes, Age - 68 y.o. - 1955 Room Number - [id number] B Consulting - Delisa Courtney MD Primary Care Physician - [facility]roncoso [id number] Date of Admission - 07/15/2024 11:38 AM Hospital Day - 2 Chief Complaint : Hematemesis James Reyes is a 68 y.o. male who pulmonary is following for obesity hypoventilation syndrome, possible sleep apnea PMH: Suspected COPD, CAD s/p CABG, DM, GERD and likely underlying MINERVA. He is supposed to wear 4-5 liters NC O2 and PAP at nursing facility however he is non compliant per Liliana, his nurse at [facility]. 50 pack year smoking history. Recent hospital admission last month for hypercapnic and hypoxic respiratory failure. He was discharged on 4 liters NC and prednisone taper. Order was placed for him to use nocturnal BiPAP at facility. Interval history Patient awake resting comfortably in bed. Currently on 6 L nasal cannula. Used BiPAP last night for at least 10 hours however reports he had a leak in the mask. He denied any shortness of breath, cough, chest pain, nausea, vomiting, fever or chills. A pertinent review of systems was performed and was otherwise non-contributory except as detailed in subjective section above. Objective Vitals: BP 133/69 (BP Location: Left arm, Patient Position: Lying) Pulse 58 Temp 36.2 C (97.1 F) (Temporal) Resp 18 Wt 293 lb (133 kg) SpO2 94% BMI 39.74 kg/m Pulse Ox: SpO2 Av.8 % Min: 92 % Max: 97 % Supplemental O2: O2 Flow Rate (L/min): 6 L/min I/O 24HR INTAKE/OUTPUT: Intake/Output Summary (Last 24 hours) at 07/17/2024 1138 Last data filed at 07/16/2024 1932 Gross per 24 hour Intake -- Output 1000 ml Net -1000 ml Exam Physical Exam Vitals and nursing note reviewed. Constitutional: General: He is not in acute distress. Appearance: He is obese. HENT: Head: Normocephalic and atraumatic. Nose: Nose normal. No congestion or rhinorrhea. Eyes: General: No scleral icterus. Right eye: No discharge. Left eye: No discharge. Conjunctiva/sclera: Conjunctivae normal. Cardiovascular: Rate and Rhythm: Normal rate and regular rhythm. Pulmonary: Effort: Pulmonary effort is normal. No respiratory distress. Breath sounds: No stridor. No wheezing, rhonchi or rales. Chest: Chest wall: No tenderness. Skin: General: Skin is warm and dry. Coloration: Skin is not jaundiced. Findings: No lesion or rash. Neurological: Mental Status: He is alert and oriented to person, place, and time. Mental status is at baseline. Psychiatric: Mood and Affect: Mood normal. Behavior: Behavior normal. Medications Current Medications acetaminophen, 1,000 mg, Oral, TID aspirin, 81 mg, Oral, Daily atorvastatin, 80 mg, Oral, Daily carvedilol, 3.125 mg, Oral, BID WC ergocalciferol, 1,250 mcg, Oral, Weekly ezetimibe, 10 mg, Oral, Nightly finasteride, 5 mg, Oral, Daily influenza, 0.5 mL, IntraMUSCular, Once insulin lispro, 0-12 Units, SubCUTAneous, TID WC And insulin lispro, 0-12 Units, SubCUTAneous, Nightly mometasone-formoterol, 2 puff, Inhalation, BID pancrelipase (Glh-Adle-Qtql), 2 capsule, Oral, TID WC pantoprazole, 40 mg, Oral, qAM AC pregabalin, 150 mg, Oral, BID tamsulosin, 0.4 mg, Oral, Daily tiotropium, 2 puff, Inhalation, Daily PRN Mediations PRN medications: acetaminophen OR acetaminophen, albuterol, albuterol, dextrose, dextrose, Diclofenac Sodium, glucagon (rDNA), glucose, nitroglycerin, ondansetron ODT OR ondansetron, polyethylene glycol (PEG) 3350 Labs CBC Results from last 7 days Lab Units 07/17/24 0526 WBC AUTO 10*3/uL 6.3 HEMOGLOBIN g/dL 9.2* HEMATOCRIT % 30.8* PLATELETS 10*3/uL 202 BMP: Results from last 7 days Lab Units 07/17/24 0526 07/16/24 0613 07/15/24 1146 SODIUM mmol/L 142 139 136 POTASSIUM mmol/L 4.3 4.3 5.1 CHLORIDE mmol/L 111* 111* 107 CO2 mmol/L 20* 20* 18* BUN mg/dL 28* 32* 37* CREATININE mg/dL 1.09 1.17 1.49* GLUCOSE mg/dL 228* 186* 305* CALCIUM mg/dL 8.7* 8.5* 8.4* ABG: Results from last 7 days Lab Units 07/15/24 1711 PH ART 7.313* PCO2 ART mm Hg 46.3 PO2 ART mm Hg 70.1* HCO3 ART mmol/L 22.9 O2 SAT ART % 92.2* BASE EXC ART mmol/L -3.3* SOURCE OF OXYGEN Nasal Cannula (LPM) LIVER PROFILE Results from last 7 days Lab Units 07/17/24 0526 07/16/24 0613 07/15/24 1146 ALK PHOS U/L 85 81 94 BILIRUBIN TOTAL mg/dL 0.2 0.3 0.4 PROTEIN TOTAL g/dL 5.5* 5.5* 6.0* ALT U/L <6 9 13 AST U/L 10 16 22 INR Results from last 7 days Lab Units 07/16/24 0613 07/15/24 1158 INR 1.0 1.1 PTT No results found for: "PTT" Cultures COVID/Flu/RSV: Negative Radiology Chest x-ray 07/15/2024 IMPRESSION: Borderline cardiomegaly. Low lung volumes and pulmonary vascular congestion. No lobar consolidation is seen. Active Hospital Problem List Patient Active Problem List Diagnosis Shoulder pain, left Dyslipidemia Knee pain, bilateral Knee osteoarthritis Insulin dependent diabetes mellitus MINERVA (obstructive sleep apnea) Tobacco abuse Esophagitis, reflux Morbid obesity ([facility]) Type 2 diabetes, uncontrolled, with neuropathy Wound disruption, post-op, skin, initial encounter Uncontrolled type 2 diabetes mellitus with hyperglycemia, with long-term current use of insulin ([facility]) CAD in [place] artery Uncontrolled type 2 diabetes mellitus with complication, with long-term current use of insulin IBS (irritable bowel syndrome) Pseudomonas aeruginosa infection Angina at rest ([facility]) Sternal wound dehiscence 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 Enlarged prostate with lower urinary tract symptoms (LUTS) Hypertensive heart disease COPD (chronic obstructive pulmonary disease) ([facility]) Arthritis of foot, degenerative Hiatal hernia Colitis Chest pain Anemia Colitis, collagenous Gastroesophageal reflux disease without esophagitis Closed head injury, initial encounter Acute hypercapnic respiratory failure ([facility]) Hematemesis Assessment Chronic hypoxic and hypercapnic respiratory failure Probable underlying COPD, not in acute exacerbation Suspected MINERVA Coffee-ground emesis-EGD with erythematous gastric mucosa without active bleeding Recommendations I spoke with patient's nurse Liliana at [facility] today. Patient supposed to be on 4 liters NC at nursing facility but is non compliant. He is currently on 6 liters NC this morning. I spoke with Isael RN on . Plan to wean FiO2 back to baseline 4 liters NC. Keep SpO2 92% Continue use of AutoBiPAP at HS and with daytime naps. Will place order on [facility] so patient can use PAP when he returns to facility. Per his nurse Liliana, he has been non compliant Continue Spiriva, Dulera and prn Albuterol Resume Advair, Incruse ellipta and prn Albuterol MDI/Neb's at discharge Advance Directive: Full Code Discharge planning: Okay to discharge back to nursing facility if able to wean O2 back to 4-5 liters NC. Hospital follow up scheduled with Viki Ball APRN on 07/31/24 Case discussed with nurse and patient Questions and concerns addressed. I have discussed the patient's case and plan of care with my collaborating physician Portions of the information within this encounter were entered using an electronic dictation system. Nutrition rescreen completed. Chart reviewed. Patient to be monitored and followed by the diet plasma center technician. Images from the original note were not included. OCCUPATIONAL THERAPY [facility] Initial Evaluation Name/MRN: James Reyes ([id number]) Evaluation Date: 07/16/2024 Date of : 1955 Admission Date: 07/15/2024 11:38 AM Age: 68 y.o. Room[facility]Bed: [facility] B Discharge Recommendation: Half-Way Facility Assessment IMPRESSION: Prior to admission, pt was independent in ADLs, functional transfers and mobility with w/c. Pt now requires total A for LB ADLs, and min A for rolling. Pt is limited by impaired balance and endurance. Pt should benefit from skilled OT services in order to increase safety and independence in occupational participation. Admitting Diagnosis: Pt admitted with Acute upper GI bleed, hematemesis. Prognosis: good Performance Deficits /Impairments: Increased Pain, Decreased Functional Mobility, Decreased ADL status, Decreased Strength, Decreased Safety Awareness, Decreased Endurance, Decreased Balance, and Decreased Cognition Decision Making: Medium Complexity Subjective Pt pleasant and cooperative with encouragement. Per RN, ok for pt to participate in OT eval. No lines present. Pain: Powers-Mathew Pain Ratin = Hurts whole lot Pain Location: BLE Past Medical History: Past Medical History: Diagnosis Date Acute kidney injury (HCC) 09/11/2015 CAD in [place] artery 08/08/2017 COPD (chronic obstructive pulmonary disease) (HCC) Developmental disorder Diabetes mellitus (HCC) Esophageal reflux Gastritis see EGD on 03/29/2016 GERD (gastroesophageal reflux disease) Hyperlipidemia IBS (irritable bowel syndrome) Mixed Obesity Osteoarthritis Pain management Plantar fasciitis, bilateral Unspecified sleep apnea Urinary retention Past Surgical History: Past Surgical History: Procedure Laterality Date CHOLECYSTECTOMY 03/29/20162010 COLONOSCOPY 05/23/2017 COLONOSCOPY 03/29/2016, repeat in 10 years, Dr. Ness, normal except internal hemorrhoid COLONOSCOPY N/A 07/18/2022 Performed by David Chen MD at [facility] OR CORONARY ARTERY BYPASS GRAFT ESOPHAGOGASTRODUODENOSCOPY N/A 07/16/2024 Dr Blackwood FOOT SURGERY Left 2014 HEMORRHOID SURGERY 1998 INNER EAR SURGERY tube placement in ears LAYERED WOUND CLOSURE N/A 10/16/2017 sternal wound debridment and closure with wound vac OTHER SURGICAL HISTORY 10/24/2017 I&D sternal wound with flap OTHER SURGICAL HISTORY punching bag removal THYROID SURGERY nodule removal 2010 TONSILLECTOMY (HISTORICAL) UPPER GASTROINTESTINAL ENDOSCOPY 04/01/2016 gastritis, duodentitis WISDOM TOOTH EXTRACTION Admission Diagnosis: Patient Active Problem List Diagnosis Date Noted IBS (irritable bowel syndrome) 08/08/2017 Hematemesis 07/15/2024 Acute hypercapnic respiratory failure ([facility]) 05/30/2024 Closed head injury, initial encounter 11/29/2023 Uncontrolled type 2 diabetes mellitus with hyperglycemia, with long-term current use of insulin ([facility]) 10/30/2017 Uncontrolled type 2 diabetes mellitus with complication, with long-term current use of insulin 10/25/2017 Pseudomonas aeruginosa infection 10/20/2017 Sternal wound dehiscence 10/20/2017 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 10/20/2017 Wound disruption, post-op, skin, initial encounter 10/16/2017 Dyslipidemia 08/08/2017 Knee osteoarthritis 08/08/2017 Insulin dependent diabetes mellitus 08/08/2017 MINERVA (obstructive sleep apnea) 08/08/2017 Tobacco abuse 08/08/2017 CAD in [place] artery 08/08/2017 Angina at rest ([facility]) 08/08/2017 Hypertensive heart disease 08/08/2017 COPD (chronic obstructive pulmonary disease) ([facility]) 08/08/2017 Chest pain 08/06/2017 Colitis, collagenous 06/15/2017 Anemia 05/23/2017 Gastroesophageal reflux disease without esophagitis 05/23/2017 Colitis 05/21/2017 Esophagitis, reflux 04/26/2017 Type 2 diabetes, uncontrolled, with neuropathy 04/26/2017 Hiatal hernia 02/21/2017 Arthritis of foot, degenerative 01/09/2017 Enlarged prostate with lower urinary tract symptoms (LUTS) 09/07/2016 Morbid obesity ([facility]) 08/12/2016 Shoulder pain, left 10/23/2014 Knee pain, bilateral 10/23/2014 Medical Precautions: No active isolations Proper PPE donned/doffed in accordance with facility standards. Fall Risk: Sr Fall Risk Score: 60 (High Risk) Precautions/Restrictions: Fall Precautions Family/Caregiver Present: none Overall Cognitive Status: Exceptions - Following commands: follows one step commands consistently - Safety judgement: decreased awareness of need for assistance and decreased awareness of need for safety - Problem solving: decreased awareness of errors - Insights: decreased awareness of deficits - Sequencing: requires cues for some - h/o developmental disorder per chart Overall Orientation Status: Oriented x4 Social/Functional History Patient admitted from [facility] . Assistive Equipment: front wheeled walker and wheelchair - manual Prior Level of Function Prior Level of ADL Function: Independent Prior Level of Mobility: Independent; Device: Wheelchair - manual Prior Level of Transfers: Independent Objective ADLs LE Dressing: Max Assist, Pt required max A to don/doff B socks as pt initially agreeable to completing sup<>sit prior to declining adamantly. Toileting: SBA, Pt able to manage urinal and complete voiding/bladder hygiene with SBA in supine. Upper Extremity Assessment AROM: generally decreased, functional Strength: generally decreased, functional Bed Mobility Rolling to right: Min Assist Rolling to left: Min Assist Scooting: Min Assist Use of bed rail(s) Pt initially agreeable to completing sup<>sit, however, then adamantly declining after rolling and transport came in to take pt. Pt required min A to roll L and R 2x each side for pad change with use of bed rail and VC for sequencing. Pt required min A to scoot to HOB. AM-PAC AM-PAC Inpatient Daily Activity Raw Score: 14 ADL Inpatient CMS G-Code Modifier: CK Plan Pt would benefit from skilled acute OT services to address Strengthening, Balance Training, Self-Care/ADL Training, Functional Mobility Training, Endurance Training, Safety Education and Training, Equipment Evaluation/Education, Patient/Caregiver Training, Cognitive/Perceptual Training, and Positioning. Frequency: 7 visits during current hospital admission or until additional recommendations are made Barriers: Impaired balance and Decreased endurance Safety/Education Safety Safety Devices in place: All fall risk precautions in place, call light within reach, left in bed, gait belt, patient at risk for falls, nurse notified, and no alarms engaged upon entry Restraints: No Education Education Given To: patient Education Provided: OT Role, Plan of Care, Fall Prevention Education, Discharge Recommendations, and Benefits of Increasing Activity Education Method: Verbal Barriers to Learning: Cognition Education Outcome: Verbalized Understanding, Demonstrated Understanding, and Continued Education Needed Goals Patient Stated Goal: to use the bathroom Encounter Problems Encounter Problems (Active) Dressing Upper Extremities Patient will complete upper body ADLs mod I. Start: 07/16/24 Expected End: 07/30/24 Dressings Lower Extremities Patient will complete lower body ADLs with SBA. Start: 07/16/24 Expected End: 07/30/24 Mobility Patient will demonstrate functional ambulation with w/c with mod I. Start: 07/16/24 Expected End: 07/30/24 Toileting Patient will complete toileting tasks at bedside commode with modified independence. Start: 07/16/24 Expected End: 07/30/24 Transfers Patient will complete functional transfer with rolling walker with modified independence in order to prepare for ambulation. Start: 07/16/24 Expected End: 07/30/24 Patient will perform bed mobility with modified independence in order to improve independence and prepare for out of bed mobility. Start: 07/16/24 Expected End: 07/30/24 Therapy Time Individual Co-Treatment Co-Evaluation Time In 1029 Time Out 1047 Minutes 18 Jackie Conklin OT Patient's Occupational Therapy Plan of Care supervision is transferred to a [facility] Occupational Therapist. Goals and/or treatment plan was established in collaboration with patient/family/other representatives. [facility] [place] Hospitalist Progress note [phone]: Please page me ([phone]) for patient care issues. [phone]: Please page [facility] Hospitalist for any issues. Subjective: Admit Date: 07/15/2024 PCP: Chelle Troncoso MD Room#: [id number] Kelly James Reyes is a 68 y.o. male who presents with Hematemesis James is a 68 y.o. male with past medical history below who presents with chief complaint dark vomit and coffee-ground emesis 2 times prior to admission to the ER, in the ER he did not have any episode, patient is from [facility] care at [facility] , on review of records he is on nabumetone and aspirin, he is type II diabetic on insulin Was given Protonix IV, patient also dropped his sats and became lethargic, he was placed on Ventimask which improved his sats, denies being on BiPAP or CPAP at the facility, called the nurse at the facility and awaiting callback. In the ER H&H 10/33.6, BUN/creatinine 37/1.49, INR of 1.1 Respiratory viral panel negative Chest x-ray showed Borderline cardiomegaly. Low lung volumes and pulmonary vascular congestion. No lobar consolidation is seen. He was admitted last month to this hospital with acute hypercapnic, hypoxic respiratory failure, [facility] 4 L of oxygen and prednisone taper nocturnal BiPAP Interval History: No overnight issues. Denies chest pain, sob, abdominal pain, nausea, vomiting, diarrhea, constipation, fevers, or chills. No more hematemesis per nursing. Patient just returned back from EGD WBC trended down to 7.3, hemoglobin stable Creatinine improving Adult diet Regular; 4 carb choices (60 gm/meal) 24HR INTAKE/OUTPUT: Intake/Output Summary (Last 24 hours) at 07/16/2024 1232 Last data filed at 07/16/2024 1100 Gross per 24 hour Intake -- Output 1400 ml Net -1400 ml LABS: CBC: Recent Labs 07/15/24 1146 07/15/24 1711 07/15/24 1731 07/16/24 0005 07/16/24 0613 WBC 12.8* -- -- -- 7.3 RBC 3.71* -- -- -- 3.36* HGB 10.0* < > 9.2* 9.1* 9.0* HCT 33.6* -- 30.4* 30.2* 31.0* MCV 90.6 -- -- -- 92.3 RDW 15.9* -- -- -- 15.9* PLT 221 -- -- -- 194 < > = values in this interval not displayed. BMP: Recent Labs 07/15/24 1146 07/16/24 0613 NA 136 139 K 5.1 4.3 CL 107 111* CO2 18* 20* BUN 37* 32* CREATININE 1.49* 1.17 GLUCOSE 305* 186* CALCIUM 8.4* 8.5* ANIONGAP 11 8 LIVER PROFILE: Recent Labs 07/15/24 1146 07/16/24 0613 AST 22 16 ALT 13 9 BILITOT 0.4 0.3 ALKPHOS 94 81 PROT 6.0* 5.5* PT/INR: Recent Labs 07/15/24 1158 07/16/24 0613 PROTIME 12.3* 11.5 INR 1.1 1.0 CARDIAC ENZYMES: No results for input(s): "TROPONINI" in the last 72 hours. Procalcitonin: No results found for: "PROCAL" @RISRSLTSPECIALTY@ Objective: Vitals: BP 121/69 Pulse 74 Temp 36.8 C (98.2 F) (Temporal) Resp 18 Wt 293 lb (133 kg) SpO2 92% BMI 39.74 kg/m Pulse Ox: SpO2 Av.4 % Min: 91 % Max: 99 % Supplemental O2: O2 Flow Rate (L/min): 6 L/min 07/16/2024 General appearance: No apparent distress, appears stated age, AAOX3 Oral: Tongue is semi-moist Cardiovascular: S1/S2 heard, RRR Respiratory: Clear to auscultation bilaterally Abdomen: Soft, non-tender, non-distended bowel sounds positive Musculoskeletal: No obvious deformities seen Medications: pantoprazole (ProtoNix) 80 mg in sodium chloride 0.9 % 100 mL (0.8 mg/mL) infusion, 8 mg/hr, Last Rate: 8 mg/hr (07/15/24 4735) sodium chloride, 100 mL/hr, Last Rate: 100 mL/hr (07/16/24 1121) acetaminophen, 1,000 mg, Oral, TID aspirin, 81 mg, Oral, Daily atorvastatin, 80 mg, Oral, Daily carvedilol, 3.125 mg, Oral, BID WC ergocalciferol, 1,250 mcg, Oral, Weekly ezetimibe, 10 mg, Oral, Nightly finasteride, 5 mg, Oral, Daily influenza, 0.5 mL, IntraMUSCular, Once insulin lispro, 0-12 Units, SubCUTAneous, TID WC And insulin lispro, 0-12 Units, SubCUTAneous, Nightly mometasone-formoterol, 2 puff, Inhalation, BID pancrelipase ([id number]-[id number]), 2 capsule, Oral, TID WC pregabalin, 150 mg, Oral, BID tamsulosin, 0.4 mg, Oral, Daily Assessment Hematemesis Upper GI bleed likely due to NSAID use Mild hypoxia with respiratory insufficiency Acute kidney injury Chronic problems Obesity Possible sleep apnea Type 2 diabetes with hyperglycemia Type 2 diabetes with neuropathy Chronic respiratory failure on 4 L of oxygen CAD GERD Plan GI consulted s/p EGD which showed normal esophagus, 3 cm hiatal hernia, erythematous mucosa in gastric body and antrum. Recommending PPI daily. Monitor H&H Continue Protonix Pulmonary consulted for respiratory insufficiency Monitor blood pressure, blood sugars BiPAP at night PT, OT -am labs, replace lytes prn -increase activity Diet Adult diet Regular; 4 carb choices (60 gm/meal) DVT Prophylaxis [] Lovenox, [] Heparin, [x] SCDs, [] Ambulation [] Already on Anticoagulation GI Prophylaxis [] PPI, [] H2 Sonny, [] Carafate, [] Diet/Tube Feeds Code Status Full Code MDM [] Low, [] Moderate,[x] High Patient's risk as above Anticipated Discharge - Date -07/17 - Location - Skilled Facility - Pending the following -clinical improvement, b2b sales consultant recommendations Total time spent (which include face to face and non face to face encounters) : 48 minutes Toxic drug monitoring/narrow therapeutic index drug monitoring : # Drug name : # Route administered : # Method of monitoring : Extended Emergency Contact Information Primary Emergency Contact: Sreekanth Reyes Relation: Sibling Advance Directive: Full Code Discharge planning: TBD Delisa Courtney MD Division of Hospitalist Medicine Inpatient Medical Services/[facility] [place] Images from the original note were not included. PHYSICAL THERAPY [facility] Initial Evaluation Name/MRN: James Reyes ([id number]) Evaluation Date: 07/16/2024 Date of : 1955 Admission Date: 07/15/2024 11:38 AM Age: 68 y.o. Room/Bed: B4-234/M7-158 B Discharge Recommendation: Half-Way Facility Other: TBD at next level of care Assessment IMPRESSION: Pt presents with decreased functional mobility, decreased strength, decreased safety awareness, decreased endurance and impaired balance. Pt has decreased balance, poor activity tolerance, decreased safety awareness and weakness requiring physical assist of 1 person in order to safely complete minimal bed level mobility placing him at a high risk of falling. Pt could benefit from skilled PT in order to address his decreased functional mobility, strength, balance and safety. Pt has medical history as listed below that that contributes to his clinical presentation. At baseline patient is functionally independent with transfers with FWW to/from wheelchair and uses a wheelchair for mobility. Currently patient is unsafe to return to his prior level of independence at the facility secondary to his increased need for assist and fall risks with mobility. Admitting Diagnosis: Pt admitted with Acute upper GI bleed, hematemesis. Prognosis: good Performance Deficits /Impairments: Increased Pain, Decreased Functional Mobility, Decreased ADL status, Decreased Strength, Decreased Safety Awareness, Decreased Endurance, Decreased Balance, and Decreased Cognition Decision Making: Medium Complexity Subjective Patient pleasant and agreeable to therapy session this date. Initially agreeable to attempt transfers, however then declined later in session. Per RN patient okay for therapy. Observation: 6L O2 intact, PIV intact Pain: Powers-Mathew Pain Ratin = Hurts whole lot Pain Location: B LE pain Past Medical History: Past Medical History: Diagnosis Date Acute kidney injury (HCC) 09/11/2015 CAD in [place] artery 08/08/2017 COPD (chronic obstructive pulmonary disease) ([facility]) Developmental disorder Diabetes mellitus (HCC) Esophageal reflux Gastritis see EGD on 03/29/2016 GERD (gastroesophageal reflux disease) Hyperlipidemia IBS (irritable bowel syndrome) Mixed Obesity Osteoarthritis Pain management Plantar fasciitis, bilateral Unspecified sleep apnea Urinary retention Past Surgical History: Past Surgical History: Procedure Laterality Date CHOLECYSTECTOMY 03/29/20162010 COLONOSCOPY 05/23/2017 COLONOSCOPY 03/29/2016, repeat in 10 years, Dr. Ness, normal except internal hemorrhoid COLONOSCOPY N/A 07/18/2022 Performed by David Chen MD at [facility] OR CORONARY ARTERY BYPASS GRAFT FOOT SURGERY Left 2015 HEMORRHOID SURGERY 1997 INNER EAR SURGERY tube placement in ears LAYERED WOUND CLOSURE N/A 10/16/2017 sternal wound debridment and closure with wound vac OTHER SURGICAL HISTORY 10/24/2017 I&D sternal wound with flap OTHER SURGICAL HISTORY punching bag removal THYROID SURGERY nodule removal 2010 TONSILLECTOMY (HISTORICAL) UPPER GASTROINTESTINAL ENDOSCOPY 04/01/2016 gastritis, duodentitis WISDOM TOOTH EXTRACTION Admission Diagnosis: Patient Active Problem List Diagnosis Date Noted IBS (irritable bowel syndrome) 08/08/2017 Hematemesis 07/15/2024 Acute hypercapnic respiratory failure ([facility]) 05/30/2024 Closed head injury, initial encounter 11/29/2023 Uncontrolled type 2 diabetes mellitus with hyperglycemia, with long-term current use of insulin ([facility]) 10/30/2017 Uncontrolled type 2 diabetes mellitus with complication, with long-term current use of insulin 10/25/2017 Pseudomonas aeruginosa infection 10/20/2017 Sternal wound dehiscence 10/20/2017 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 10/20/2017 Wound disruption, post-op, skin, initial encounter 10/16/2017 Dyslipidemia 08/08/2017 Knee osteoarthritis 08/08/2017 Insulin dependent diabetes mellitus 08/08/2017 MINERVA (obstructive sleep apnea) 08/08/2017 Tobacco abuse 08/08/2017 CAD in [place] artery 08/08/2017 Angina at rest ([facility]) 08/08/2017 Hypertensive heart disease 08/08/2017 COPD (chronic obstructive pulmonary disease) ([facility]) 08/08/2017 Chest pain 08/06/2017 Colitis, collagenous 06/15/2017 Anemia 05/23/2017 Gastroesophageal reflux disease without esophagitis 05/23/2017 Colitis 05/21/2017 Esophagitis, reflux 04/26/2017 Type 2 diabetes, uncontrolled, with neuropathy 04/26/2017 Hiatal hernia 02/21/2017 Arthritis of foot, degenerative 01/09/2017 Enlarged prostate with lower urinary tract symptoms (LUTS) 09/07/2016 Morbid obesity ([facility]) 08/12/2016 Shoulder pain, left 10/23/2014 Knee pain, bilateral 10/23/2014 Medical Precautions: No active isolations Proper PPE donned/doffed in accordance with facility standards. Fall Risk: Sr Fall Risk Score: 60 (High Risk) Precautions/Restrictions: Fall Precautions Family/Caregiver Present: none Overall Cognitive Status: Exceptions - Following commands: follows one step commands consistently - Safety judgement: decreased awareness of need for assistance and decreased awareness of need for safety - Problem solving: decreased awareness of errors - Insights: decreased awareness of deficits - Sequencing: requires cues for some - h/o developmental disorder per chart Overall Orientation Status: Oriented x4 Vision: wears glasses at all times and and are being used during the eval Hearing: normal Social/Functional History Patient admitted from [facility] . Assistive Equipment: front wheeled walker and wheelchair - manual Prior Level of Function Prior Level of ADL Function: Required Assist Prior Level of Mobility: Independent (with wheelchair); Device: Wheelchair - manual Prior Level of Transfers: Independent - with transfers Objective Lower Extremity Assessment AROM: WFL Strength: Pt able to complete B LE SLR and partial LAQ in sitting B LE - declined to complete MMT due to LE pain in sitting, grossly limited B LE strength Balance: Balance During Session: Posture: fair Sitting - Static: SBA Sitting - Dynamic: Min Assist Pt tolerated ~ 5 minutes sitting EOB, however started to c/o increased B LE pain with sitting and declined to complete standing at this time Bed Mobility: Supine to sit: Max Assist, assist for trunk and B LE management to complete with cues throughout for sequencing Sit to supine: Min Assist, momentum to complete, Sparkle to assist with trunk control to return to supine Scooting: Mod Assist, to EOB Denies dizziness with positional changes. Increased time to complete all tasks with cues for sequencing. Pt tolerated ~ 5 minutes sitting and c/o increased B LE pain. While therapist attempted to don socks for standing, patient declined to complete standing and requested to return to supine. Unable to encourage at this time. Transfers NT - declined Outcome Measures AM-PAC How much HELP from another person do you currently need Turning from your back to your side while in a flat bed without using bedrails?: A Little Moving from lying on your back to sitting on the side of a flat bed without using bedrails?: A Lot Moving to and from a bed to a chair (including a wheelchair)?: A Lot Standing up from a chair using your arms (wheelchair or bedside chair)?: A Lot Walking in a hospital room?: Total Stair climbing assessed?: No AM-PAC Inpatient Mobility Raw Score (No Stairs) : 10 JH-HLM -HL Score: Sat at edge of bed Plan Pt would benefit from skilled acute PT services to address Strengthening, ROM, Balance Training, Self-Care/ADL Training, Functional Mobility Training, Endurance Training, Safety Education and Training, Pain Management, Equipment Evaluation/Education, Home Management Training, Patient/Caregiver Training, Wheelchair Mobility Training, and Positioning. Frequency: 7 visits Barriers: Pain, Impaired balance, Decreased endurance, and Cognitive deficit Safety/Education Safety Safety Devices in place: All fall risk precautions in place, call light within reach, left in bed, patient at risk for falls, nurse notified, and no alarms engaged upon entry Restraints: N/A Education Education Given To: patient Education Provided: PT Role, PT Goals, Plan of Care, Fall Prevention Education, Discharge Recommendations, Benefits of Increasing Activity, and bed mobility Education Method: Verbal and Demonstration Barriers to Learning: Cognition Education Outcome: Verbalized Understanding, Demonstrated Understanding, and Continued Education Needed Goals Patient Stated Goal: Patient states he wants to feel better. Encounter Problems Encounter Problems (Active) Balance Patient will maintain static standing balance for 2 minutes with SBA in order to demonstrate decreased risk of falling. Start: 07/16/24 Expected End: 07/23/24 Patient will maintain dynamic sitting balance for 10 minutes with modified independence in order to demonstrate improved postural control and prepare for out of bed mobility. Start: 07/16/24 Expected End: 07/23/24 Exercise Patient will complete lower extremity exercises for 1-2 sets / 10 reps in order to improve strength and activity tolerance for mobility. Start: 07/16/24 Expected End: 07/23/24 Mobility Patient will propel the wheelchair for 100 ft and modified independence in order to improve safety and independence with functional mobility. Start: 07/16/24 Expected End: 07/23/24 Transfers Patient will perform bed mobility with modified independence in order to improve independence and prepare for out of bed mobility. Start: 07/16/24 Expected End: 07/23/24 Patient will complete functional transfers with rolling walker with modified independence in order to prepare for OOB mobility. Start: 07/16/24 Expected End: 07/23/24 Therapy Time Individual Co-Treatment Co-Evaluation Time In 1015 Time Out 1029 Minutes 14 Arabella Shen PT Patient's Physical Therapy Plan of Care supervision is transferred to a [facility] Physical Therapist. Goals and/or treatment plan was established in collaboration with patient/family/other representatives. Patient declined smoking cessation counseling. Accepting of handout with contact information for future reference. documented in this encounter [facility] 07-17-2024 Plan of care note Problem: Knowledge Deficit Goal: Patient/family/caregiver demonstrates understanding of disease process, treatment plan, medications, and discharge instructions 07/17/2024 1343 by Isael Ash RN Outcome: Adequate for Discharge 07/17/2024 1044 by Isael Ash RN Outcome: Progressing Problem: Potential for Compromised Skin Integrity Goal: Skin Integrity is Maintained or Improved 07/17/2024 1343 by Isael Ash RN Outcome: Adequate for Discharge 07/17/2024 1044 by Isael Ash RN Outcome: Progressing Goal: Nutritional status is improving 07/17/2024 1343 by Isael Ash RN Outcome: Adequate for Discharge 07/17/2024 1044 by Isael Ash RN Outcome: Progressing Problem: Urinary Incontinence Goal: Perineal skin integrity is maintained or improved Outcome: Adequate for Discharge [facility] 07-17-2024 Miscellaneous Notes Problem: Knowledge Deficit Goal: Patient/family/caregiver demonstrates understanding of disease process, treatment plan, medications, and discharge instructions 07/17/2024 1343 by Isael Ash RN Outcome: Adequate for Discharge 07/17/2024 1044 by Isael Ash RN Outcome: Progressing Problem: Potential for Compromised Skin Integrity Goal: Skin Integrity is Maintained or Improved 07/17/2024 1343 by Isael Ash RN Outcome: Adequate for Discharge 07/17/2024 1044 by Isael Ash RN Outcome: Progressing Goal: Nutritional status is improving 07/17/2024 1343 by Isael Ash RN Outcome: Adequate for Discharge 07/17/2024 1044 by Isael Ash RN Outcome: Progressing Problem: Urinary Incontinence Goal: Perineal skin integrity is maintained or improved Outcome: Adequate for Discharge Problem: Knowledge Deficit Goal: Patient/family/caregiver demonstrates understanding of disease process, treatment plan, medications, and discharge instructions Outcome: Progressing Problem: Potential for Compromised Skin Integrity Goal: Skin Integrity is Maintained or Improved Outcome: Progressing Goal: Nutritional status is improving Outcome: Progressing POST ENDOSCOPY PROCEDURE TRANSFER REPORT Procedure completed: EGD Findings:See Dr Blackwood' Report Specimens obtained: Yes Medications administered: See Anesthesia Record Additional Info: No adverse events or complications. For additional Questions please call Endoscopy at [phone]. [facility]! [facility] James Re[facility] Procedure Date: 07/16/2024 10:45 AM Gender: Male Date of : 1955 Age: 68 Admit Type: Inpatient Note Status: Finalized Endoscopist: Jaret Blackwood DO, [id number] Procedure: Upper GI endoscopy Indications: Coffee-ground emesis Findings: The examined esophagus was normal. A 3 cm hiatal hernia was present. Diffuse mild mucosal changes characterized by erythema and granularity were found in the gastric body and in the gastric antrum. Biopsies were taken with a cold forceps for histology. The cardia and gastric fundus were normal on retroflexion. Patchy moderate mucosal changes characterized by erythema and friability (with contact bleeding) were found in the duodenal bulb and in the second portion of the duodenum. Biopsies were taken with a cold forceps for histology. Impression: - Normal esophagus. - 3 cm hiatal hernia. - Erythematous and granular mucosa in the gastric body and antrum. Biopsied. - Mucosal changes in the duodenum. Biopsied. Recommendation: - Resume previous diet. - Continue present medications. - PPI daily - Await pathology results. Referring MD: Chelle Troncoso MD Medicines: Monitored Anesthesia Care, See the Anesthesia note for documentation of the administered medications Procedure: Pre-Anesthesia Assessment: - Prior to the procedure, a History and Physical was performed, and patient medications and allergies were reviewed. The patient's tolerance of previous anesthesia was also reviewed. The risks and benefits of the procedure and the sedation options and risks were discussed with the patient. All questions were answered, and informed consent was obtained. Prior Anticoagulants: The patient has taken no anticoagulant or antiplatelet agents except for aspirin. ASA Grade Assessment: III - A patient with severe systemic disease. After reviewing the risks and benefits, the patient was deemed in satisfactory condition to undergo the procedure. After obtaining informed consent, the endoscope was passed under direct vision. Throughout the procedure, the patient's blood pressure, pulse, and oxygen saturations were monitored continuously. The Endoscope was introduced through the mouth, and advanced to the second part of duodenum. The upper GI endoscopy was accomplished without difficulty. The patient tolerated the procedure well. Complications: No immediate complications. Procedure Code(s): --- Professional --- 31586, Esophagogastroduodenoscopy, flexible, transoral; with biopsy, single or multiple --- Technical --- 54602, Esophagogastroduodenoscopy, flexible, transoral; with biopsy, single or multiple Diagnosis Code(s): --- Professional --- K44.9, Diaphragmatic hernia without obstruction or gangrene K31.89, Other diseases of stomach and duodenum K92.0, Hematemesis --- Technical --- K44.9, Diaphragmatic hernia without obstruction or gangrene K31.89, Other diseases of stomach and duodenum K92.0, Hematemesis CPT copyright 2021 [employer]. All rights reserved. The codes documented in this report are preliminary and upon medical insurance coder review may be revised to meet current compliance requirements. Attending Participation: I personally performed the entire procedure. Jaret Blackwood DO 07/16/2024 11:48:32 AM This report has been signed electronically. Number of Addenda: 0 Note Initiated On: 07/16/2024 10:45 AM Problem: Knowledge Deficit Goal: Patient/family/caregiver demonstrates understanding of disease process, treatment plan, medications, and discharge instructions Outcome: Progressing Problem: Potential for Compromised Skin Integrity Goal: Skin Integrity is Maintained or Improved Outcome: Progressing Per careport, patient is fpc and bedhold at [facility] and can return when medically stable. . Return referral placed in careport to [facility]. . documented in this encounter [facility] 07-17-2024 Note [facility] 07-17-2024 Hospital course Narrative Images from the original note were not included. [facility] Hospitalist Discharge Summary James Reyes : 1955 Admit date: 07/15/2024 Discharge date: 07/17/2024 Admitting Physician: Bethany Sandhu MD Primary Care Physician: Chelle Troncoso MD VISIT STATUS: Inpatient/Observation CODE STATUS: Full Code DISCHARGE DIAGNOSES: Principal Problem: Hematemesis Hematemesis Upper GI bleed likely due to NSAID use Mild hypoxia with respiratory insufficiency Acute kidney injury Chronic problems Obesity Possible sleep apnea Type 2 diabetes with hyperglycemia Type 2 diabetes with neuropathy Chronic respiratory failure on 4 L of oxygen CAD [facility] HOSPITAL COURSE: 68 y.o. male with past medical history below who presents with chief complaint dark vomit and coffee-ground emesis 2 times prior to admission to the ER, in the ER he did not have any episode, patient is from [facility] , on review of records he is on nabumetone and aspirin, he is type II diabetic on insulin Was given Protonix IV, patient also dropped his sats and became lethargic, he was placed on Ventimask which improved his sats, denies being on BiPAP or CPAP at the facility, called the nurse at the facility and awaiting callback. In the ER H&H 10/33.6, BUN/creatinine 37/1.49, INR of 1.1 Respiratory viral panel negative Chest x-ray showed Borderline cardiomegaly..Low lung volumes and pulmonary vascular congestion. No lobar consolidation is seen. He was admitted last month to this hospital with acute hypercapnic, hypoxic respiratory failure, [facility] 4 L of oxygen and prednisone taper nocturnal BiPAP GI consulted s/p EGD which showed normal esophagus, 3 cm hiatal hernia, erythematous mucosa in gastric body and antrum. Recommending PPI daily.. He did not have any more episodes of hematemesis during the hospital stay. Pulmonary consulted for respiratory insufficiency no changes in the management, was able to wean off to 4 L of oxygen which is his baseline. Recommended to use nocturnal BiPAP at facility. On the day of discharge, patient denies any chest pain, shortness of breath, no bloody emesis, bloody stools. Hemoglobin stayed stable SIGNIFICANT DIAGNOSTIC STUDIES: CBC: Recent Labs 07/15/24 1146 07/15/24 1711 07/16/24 0613 07/16/24201107/17/24 0526 WBC 12.8* -- 7.3 -- 6.3 RBC 3.71* -- 3.36* -- 3.37* HGB 10.0* < > 9.0* 8.5* 9.2* HCT 33.6* < > 31.0* 28.9* 30.8* MCV 90.6 -- 92.3 -- 91.4 RDW 15.9* -- 15.9* -- 15.9* PLT 221 -- 194 -- 202 < > = values in this interval not displayed. BMP:@LABRCNT(NA:3,K:3,CL:3,CO2:3,B UN:3,CREATININE:3,GLUCOSE:3,CALCIU M :3,ANIONGAP:3)@ LIVER PROFILE: Recent Labs 07/15/24 1146 07/16/24 0613 07/17/24 0526 AST 22 16 10 ALT 13 9 <6 BILITOT 0.4 0.3 0.2 ALKPHOS 94 81 85 PROT 6.0* 5.5* 5.5* PT/INR: Recent Labs 07/15/24 1158 07/16/24 0613 PROTIME 12.3* 11.5 INR 1.1 1.0 CARDIAC ENZYMES: No results for input(s): "TROPONINI" in the last 72 hours. Procalcitonin: No results found for: "PROCAL" Urine Culture: Results for orders placed or performed during the hospital encounter of 11/29/23 Urine culture Collection Time: 12/03/23 11:23 PM Specimen: Urine, Clean Catch Result Value Ref Range Urine Culture >100,000 CFU/mL Proteus mirabilis (A) Susceptibility Proteus mirabilis - BROTH MICRODILUTION Amoxicillin / Clavulanate <=2 Susceptible ug/ml Ampicillin <=2 Susceptible ug/ml Ampicillin / Sulbactam <=2 Susceptible ug/ml Aztreonam <=1 Susceptible ug/ml Cefazolin <=4 Susceptible ug/ml Cefepime <=1 Susceptible ug/ml Ceftriaxone <=1 Susceptible ug/ml Ciprofloxacin >=4 Resistant ug/ml Gentamicin <=1 Susceptible ug/ml Meropenem <=0.25 Susceptible ug/ml Nitrofurantoin 128 Resistant ug/ml Piperacillin / Tazobactam <=4 Susceptible ug/ml Trimethoprim / Sulfamethoxazole <=20 Susceptible ug/ml @RISRSLTSPECIALTY@ MEDICATION CHANGES: None RECOMMENDED NEXT STEPS: Hospital Course: See discharge diagnoses list above and medication adjustments below in med rec.The patient is discharged in improved and stable condition. Consults: Discharge Instructions: Diet: Dietary Orders (From admission, onward) Start Ordered 07/16/24 1142 Adult diet Regular; 4 carb choices (60 gm/meal) Diet effective now Question Answer Comment Diet type Regular Carbohydrate restriction: 4 carb choices (60 gm/meal) 07/16/24 1141 Activity: as tolerated Recommended Outpatient Tests: Disposition: Patient discharged in stable condition to SNF . Greater than 31 minutes spent discharging the patient and coming up with patient discharge plan. Vitals: BP 133/69 (BP Location: Left arm, Patient Position: Lying) Pulse 60 Temp 36.2 C (97.1 F) (Temporal) Resp 18 Wt 293 lb (133 kg) SpO2 97% BMI 39.74 kg/m Pulse Ox: SpO2 Av % Min: 94 % Max: 97 % Supplemental O2: O2 Flow Rate (L/min): 4 L/min General appearance: No apparent distress, appears stated age and cooperative with exam Respiratory: Normal respiratory effort. Clear to auscultation, bilaterally without Rales/Wheezes/Rhonchi. Cardiovascular: Regular rate and rhythm with normal S1/S2 without murmurs, rubs or gallops. Abdomen: Soft, non-tender, non-distended with normal bowel sounds. No rebound or guarding. Musculoskeletal: Full range of motion without deformity, +2 peripheral pulses in all extremities. Skin: Skin color, texture, turgor normal. No rashes or lesions. Neurologic: Neurovascularly intact without any focal sensory/motor deficits. Discharge Medications: Medication List START taking these medications pantoprazole 40 MG EC tablet Commonly known as: ProtoNix Take 1 tablet (40 mg) by mouth every morning (before breakfast). Do not crush, chew, or split. Start taking on: July 18, 2024 CONTINUE taking these medications acetaminophen 325 MG tablet Commonly known as: Tylenol Advair Diskus 250-50 MCG/ACT aerosol powder Generic drug: Fluticasone-Salmeterol * albuterol 108 (90 Base) MCG/ACT inhaler * albuterol (2.5 MG/3ML) 0.083% nebulizer solution aspirin 81 MG chewable tablet atorvastatin 80 MG tablet Commonly known as: Lipitor Biofreeze Cool The Pain 4 % gel Generic drug: Menthol (Topical Analgesic) carvedilol 6.25 MG tablet Commonly known as: Coreg Take 0.5 tablets (3.125 mg) by mouth 2 times daily (with meals). cholestyramine 4 g packet Commonly known as: Questran cilostazol 50 MG tablet Commonly known as: Pletal dicyclomine 10 MG capsule Commonly known as: Bentyl ergocalciferol 1.25 MG (95732 UT) capsule Commonly known as: Vitamin D-2 ezetimibe 10 MG tablet Commonly known as: Zetia famotidine 20 MG tablet Commonly known as: Pepcid finasteride 5 MG tablet Commonly known as: Proscar fluticasone 50 MCG/ACT nasal spray Commonly known as: Flonase Incruse Ellipta 62.5 MCG/ACT inhalation Generic drug: umeclidinium insulin glargine 100 UNIT/ML injection Commonly known as: Lantus Insulin Lispro 100 UNIT/ML solution injection Commonly known as: Humalog Jardiance 25 MG Generic drug: empagliflozin metFORMIN 500 MG tablet Commonly known as: Glucophage nabumetone 500 MG tablet Commonly known as: Relafen nitroglycerin 0.4 MG SL tablet Commonly known as: Nitrostat nystatin cream Commonly known as: Mycostatin pancrelipase (Fvq-Smlr-Ieyt) 04942-29656 units capsule Commonly known as: Creon pregabalin 150 MG capsule Commonly known as: Lyrica Take 1 capsule (150 mg) by mouth 2 times daily. tamsulosin 0.4 MG 24 hr capsule Commonly known as: Flomax * This list has 2 medication(s) that are the same as other medications prescribed for you. Read the directions carefully, and ask your doctor or other care provider to review them with you. Where to Get Your Medications These medications were sent to [facility] - [place], [place] - [address], [place] [address] pantoprazole 40 MG EC tablet Recommended Follow-up: Viki Ball APRN - TECHNICAL ARCHITECT [address], [address] [facility] [id number] Go on 07/31/2024 Pulmonary hospital follow up at 1:40 PM Chelle Troncoso MD [address] [place] [phone] Follow up Hospital follow up Complexity of Follow up: [] Moderate Complexity: follow up within 7-14 calendar days (42079) [x] Severe Complexity: follow up within 7 calendar days (33122) Follow up Testing, Pending results or Referrals at Transitional Care Visit: [x] yes [] no Instructions to MA: Please call patient on day after discharge (must document patient contacted within 2 business days of discharge). Follow up questions for MA: 1. Did you get medications filled and taking them as instructed from discharge? 2. Are you following your discharge instructions from your hospital stay? 3. Please confirm patient is scheduled for a follow up appointment within the above time frame. Signed: Delisa Courtney MD Division of Hospitalist Medicine Inpatient Medical Services/[facility] [place] 07/17/2024, 12:55 PM documented in this encounter [facility] Plan of care note Problem: Knowledge Deficit Goal: Patient/family/caregiver demonstrates understanding of disease process, treatment plan, medications, and discharge instructions Outcome: Progressing Problem: Potential for Compromised Skin Integrity Goal: Skin Integrity is Maintained or Improved Outcome: Progressing Goal: Nutritional status is improving Outcome: Progressing [facility] 07-17-2024 Nurse Note Wound Care consulted for Pressure Injury Prevention. Pt's Yang score= 15 on 4/2 Pt's pressure points assessed. Pt's Heels, Buttocks/coccyx, Back, Elbows, Occiput and ears all intact. Pt turned with max assist of 1 (this RN) for posterior assessment. Skin tear noted to left elbow, covered with foam dressing. MASD noted to bilateral groin and scrotum. Pt incontinent of stool and urine. Brief removed, pads changed, incontinence care provided, barrier ointment applied. Prevention Measures in place, including: [place] sheet (obtained) with pillows/wedges, Heels elevated off bed on pillows, Zinc/Moisture Barrier ointment (obtained and applied), Waffle chair cushion (obtain for pt once getting out of bed to chair). Skin Care precaution order set in place. Dietitian plasma center technician involved. PT/OT consult in place. D/W nursing staff. Will continue to follow pt. Please secure chat for any questions or concerns. Kaycee Ricardo RN [facility] 07-17-2024 Nurse Note Wound Care consulted for Pressure Injury Prevention. Pt's Yang score= 15 on 4/2 Pt's pressure points assessed. Pt's Heels, Buttocks/coccyx, Back, Elbows, Occiput and ears all intact. Pt turned with max assist of 1 (this RN) for posterior assessment. Skin tear noted to left elbow, covered with foam dressing. MASD noted to bilateral groin and scrotum. Pt incontinent of stool and urine. Brief removed, pads changed, incontinence care provided, barrier ointment applied. Prevention Measures in place, including: [place] sheet (obtained) with pillows/wedges, Heels elevated off bed on pillows, Zinc/Moisture Barrier ointment (obtained and applied), Waffle chair cushion (obtain for pt once getting out of bed to chair). Skin Care precaution order set in place. Dietitian plasma center technician involved. PT/OT consult in place. D/W nursing staff. Will continue to follow pt. Please secure chat for any questions or concerns. Kaycee Ricardo RN documented in this encounter [facility] 07-16-2024 Consult note Associated Order (s): Inpatient consult to Pulmonology PULMONOLOGY CONSULT NOTE 07/16/2024 9:50 AM Reason for consult: Obesity hypoventilation syndrome, possible sleep apnea Inpatient consult to Pulmonology Consult performed by: Adal Prescott MD Consult ordered by: Bethany Sandhu MD Subjective: Admit Date: 07/15/2024 PCP: Chelle Troncoso MD HPI: James Reyes is a 68 y.o. male Male with history notable for 50+ pack-year tobacco smoking history, suspected COPD, CAD status post CABG, diabetes mellitus, GERD. The patient was admitted on 07/15/2024 with chief complaint of dark vomiting coffee-ground emesis. This reportedly happened twice at [facility] prior to arrival to the ED. He has been seen by GI and the plan is to undergo EGD. Here the patient has been afebrile and hemodynamically stable. Was placed on 6 LPM nasal cannula supplemental oxygen. Labs notable for hemoglobin of 9.0. BMP with nongap metabolic acidosis with serum bicarb 18 on admission. JESSIKA with creatinine 1.49. Low albumin. Mild leukocytosis on admission. Nasopharyngeal swab was negative for SARS-CoV-2/RSV/influenza PCR. Of note the patient was admitted last month to this hospital with acute hypercapnic and hypoxemic respiratory failure. Was eventually discharged home on 4 LPM nasal cannula during the day and prednisone taper. He has previously been on triple therapy with Advair and Incruse. He was discharged to nursing facility and orders for nocturnal BiPAP use sent to his facility. The patient was seen laying in his hospial bed; no acute distress. Underwent EGD this morning without difficulty. Says vomiting has resolved. Currently denies dyspnea, cough, wheezing. Assessment and Plan: Chronic hypercapnic respiratory failure Probable COPD (without current exacerbation) Probable MINERVA Coffee ground emesis - EGD with erythematous gastric mucosa without active bleeding In the setting of heavy smoking history and probable copd, we have to be careful not to label as obesity hypoventilation as there are other causes of hypoventilation/hypercapnia in this patient Currently has mixed acute metabolic (non gaP) acidosis with mild chronic respiratory acidosis). Patient reports not using bipap at his facility. Start auto-bilevel tonight; order placed Continue ics/laba/lama maintenance inhalers here; NICO nebs prn Will continue to follow Adal Prescott MD Pulmonary, Critical Care, and Sleep Medicine Portions of the information within this encounter were entered using an electronic dictation system. Best attempts were made to edit/proofread the information prior to note completion. Despite the review of information, some errors may remain. If there are questions related to the information contained within the note please contact the signing physician directly. Past Medical History: Past Medical History: Diagnosis Date Acute kidney injury (HCC) 09/11/2015 CAD in [place] artery 08/08/2017 COPD (chronic obstructive pulmonary disease) (HCC) Developmental disorder Diabetes mellitus (HCC) Esophageal reflux Gastritis see EGD on 03/29/2016 GERD (gastroesophageal reflux disease) Hyperlipidemia IBS (irritable bowel syndrome) Mixed Obesity Osteoarthritis Pain management Plantar fasciitis, bilateral Unspecified sleep apnea Urinary retention Past Surgical History: Past Surgical History: Procedure Laterality Date CHOLECYSTECTOMY 03/29/20162010 COLONOSCOPY 05/23/2017 COLONOSCOPY 03/29/2016, repeat in 10 years, Dr. Ness, normal except internal hemorrhoid COLONOSCOPY N/A 07/18/2022 Performed by David Chen MD at [facility] OR CORONARY ARTERY BYPASS GRAFT FOOT SURGERY Left 2014 HEMORRHOID SURGERY 1997 INNER EAR SURGERY tube placement in ears LAYERED WOUND CLOSURE N/A 10/16/2017 sternal wound debridment and closure with wound vac OTHER SURGICAL HISTORY 10/24/2017 I&D sternal wound with flap OTHER SURGICAL HISTORY punching bag removal THYROID SURGERY nodule removal 2010 TONSILLECTOMY (HISTORICAL) UPPER GASTROINTESTINAL ENDOSCOPY 04/01/2016 gastritis, duodentitis WISDOM TOOTH EXTRACTION Allergies: Allergies Allergen Reactions Penicillins Other reaction(s): Other (See Comments), Unknown unknown Tetracyclines & Related Other reaction(s): Other (See Comments), Unknown unknown Social History: Social History Substance and Sexual Activity Alcohol Use No Alcohol/week: 0.0 standard drinks of alcohol Social History Substance and Sexual Activity Drug Use No Comment: caffeine use: decaf coffee sometimes Social History Tobacco Use Smoking Status Every Day Current packs/day: 1.00 Average packs/day: 1 pack/day for 51.2 years (51.2 ttl pk-yrs) Types: Cigarettes Start date: 04/28/1973 Smokeless Tobacco Never Family History: Family History Problem Relation Name Age of Onset Heart attack Mother 61.00 Heart disease Father Other (14[address]) Brother accident Coronary artery disease Father Diabetes Father Review of Systems Constitutional: Positive for fatigue. Negative for chills and fever. HENT: Negative for nosebleeds and postnasal drip. Respiratory: Negative for cough, chest tightness, shortness of breath and wheezing. Cardiovascular: Negative for chest pain, palpitations and leg swelling. Gastrointestinal: Positive for abdominal pain, nausea and vomiting. Genitourinary: Negative for difficulty urinating and hematuria. Skin: Negative for rash and wound. Neurological: Negative for syncope, light-headedness and headaches. Psychiatric/Behavioral: Negative for sleep disturbance. Medications: Scheduled Meds:acetaminophen, 1,000 mg, Oral, TID aspirin, 81 mg, Oral, Daily atorvastatin, 80 mg, Oral, Daily carvedilol, 3.125 mg, Oral, BID WC ergocalciferol, 1,250 mcg, Oral, Weekly ezetimibe, 10 mg, Oral, Nightly finasteride, 5 mg, Oral, Daily influenza, 0.5 mL, IntraMUSCular, Once insulin lispro, 0-12 Units, SubCUTAneous, TID WC And insulin lispro, 0-12 Units, SubCUTAneous, Nightly mometasone-formoterol, 2 puff, Inhalation, BID pancrelipase (Lls-Nuwd-Wbkm), 2 capsule, Oral, TID WC pregabalin, 150 mg, Oral, BID tamsulosin, 0.4 mg, Oral, Daily Continuous Infusions:pantoprazole (ProtoNix) 80 mg in sodium chloride 0.9 % 100 mL (0.8 mg/mL) infusion, 8 mg/hr, Last Rate: 8 mg/hr (07/15/242354) sodium chloride, 100 mL/hr, Last Rate: 100 mL/hr (07/15/242354) Data: [facility] within last 24 hours- BMP: Recent Labs 07/15/24 1146 07/16/24 0613 NA 136 139 K 5.1 4.3 CL 107 111* CO2 18* 20* BUN 37* 32* CREATININE 1.49* 1.17 CALCIUM 8.4* 8.5* LFTs: Recent Labs 07/15/24 1146 07/16/24 0613 AST 22 16 ALT 13 9 PROT 6.0* 5.5* ALBUMIN 2.8* 2.5* BILITOT 0.4 0.3 ALKPHOS 94 81 LIPASE 8 -- Glucose: Recent Labs 07/15/24 1146 07/15/24 1621 07/15/24 2058 07/16/24 0613 07/16/24 0850 GLUCOSE 305* -- -- 186* -- POCGLU -- 261* 191* -- 194* Procal: No results for input(s): "PROCAL" in the last 72 hours. CBC: Recent Labs 07/15/24 1146 07/15/24 1711 07/15/24 1731 07/16/24 0005 07/16/24 0613 WBC 12.8* -- -- -- 7.3 HGB 10.0* < > 9.2* 9.1* 9.0* HCT 33.6* -- 30.4* 30.2* 31.0* PLT 221 -- -- -- 194 MCV 90.6 -- -- -- 92.3 RDW 15.9* -- -- -- 15.9* < > = values in this interval not displayed. ABGs: Recent Labs 07/15/241710 PHART 7.313* [id number] 46.3 PO2ART 70.1* AFP9WWD 22.9 [id number] Nasal Cannula (LPM) Lactic Acid: No results for input(s): "LACTATE" in the last 72 hours. INR: Recent Labs 07/15/24 1158 07/16/24 0613 INR 1.1 1.0 Cardiac Injury Profile: No results for input(s): "CKTOTAL", "CKMB", "TROPONINI" in the last 72 hours. Labs in Last 3 months: Lab Results Component Value Date TSH 1.209 11/30/2023 VITD25 24 (L) 12/02/2023 INR 1.0 07/16/2024 Microbiology- Urine Cx: Lab Results Component Value Date URINECX >100,000 CFU/mL Proteus mirabilis (A) 12/03/2023 Blood Cx: Lab Results Component Value Date BLOODCX No growth at 5 days 05/30/2024 Sputum Cx: No results found for: RESPCULT Gram Stain: No results found for: LABGRAM PNA PCR: Lab Results Component Value Date HUMANMETAPNE Not Detected 05/30/2024 COVID19: No results found for: COVID19 Legionella Ag: No results found for: "LEGIONELLAPN" Strep Ag: No results for input(s): "STREPPNEUMO" in the last 72 hours. Imaging- CXR portable: Results for orders placed during the hospital encounter of 07/15/24 XR chest 1 view Narrative Patient Name: JAMES REYES : 1955 Exam Date/Time: 07/15/2024 12:10 Procedure: XR CHEST 1 VIEW Ordering Provider: PARISI ANIS Reason For Exam: patient presented for hematemesis but is hypoxic PORTABLE CHEST X-RAY CLINICAL INDICATION: Hematemesis, hypoxia A portable frontal view of the chest was obtained. COMPARISON: 06/10/2024 FINDINGS: Heart size is at the upper limits of normal. Low lung volumes are present. Pulmonary vascular congestion is suspected, similar to the prior examination. No new areas of consolidation are seen. There is no pleural effusion or pneumothorax. There are degenerative changes of the spine. Impression Borderline cardiomegaly. Low lung volumes and pulmonary vascular congestion. No lobar consolidation is seen. Report Dictated on Electronically Signed By: Melvin Scott MD Electronically Signed Date/Time: 07/15/2024 12:22 PM EDT CXR (2V): No results found for this or any previous visit. CT Chest: No results found for this or any previous visit. CTA Chest: No results found for this or any previous visit. Other Studies: Reviewed and as per electronic record. CxR/CT images personally reviewed by me when available; salient findings summarized in A/P. Objective: Vitals: BP 137/62 (BP Location: Right arm, Patient Position: Lying) Pulse 75 Temp 36.2 C (97.1 F) (Temporal) Resp 18 Wt 293 lb (133 kg) SpO2 95% BMI 39.74 kg/m Physical Exam Constitutional: General: He is not in acute distress. Appearance: He is obese. HENT: Head: Normocephalic and atraumatic. Nose: No congestion or rhinorrhea. Comments: Nasal cannula in place Mouth/Throat: Mouth: Mucous membranes are moist. Pharynx: Oropharynx is clear. No oropharyngeal exudate. Eyes: General: No scleral icterus. Right eye: No discharge. Left eye: No discharge. Conjunctiva/sclera: Conjunctivae normal. Cardiovascular: Rate and Rhythm: Normal rate and regular rhythm. Pulses: Normal pulses. Heart sounds: No murmur heard. Pulmonary: Effort: No tachypnea or accessory muscle usage. Breath sounds: No stridor. No wheezing or rhonchi. Abdominal: General: There is no distension. Palpations: Abdomen is soft. Tenderness: There is no abdominal tenderness. Musculoskeletal: Right lower leg: No edema. Left lower leg: No edema. Lymphadenopathy: Cervical: No cervical adenopathy. Skin: General: Skin is warm and dry. Coloration: Skin is not jaundiced. Neurological: Mental Status: He is alert. Mental status is at baseline. Cranial Nerves: No cranial nerve deficit. Sensory: No sensory deficit. Psychiatric: Mood and Affect: Mood normal. Behavior: Behavior normal. Behavior is cooperative. [facility] [employer] Work Phone: 07-16-2024 Consult note Associated Order (s): Inpatient consult to Pulmonology PULMONOLOGY CONSULT NOTE 07/16/2024 9:50 AM Reason for consult: Obesity hypoventilation syndrome, possible sleep apnea Inpatient consult to Pulmonology Consult performed by: Adal Prescott MD Consult ordered by: Bethany Sandhu MD Subjective: Admit Date: 07/15/2024 PCP: Chelle Troncoso MD HPI: James Reyes is a 68 y.o. male Male with history notable for 50+ pack-year tobacco smoking history, suspected COPD, CAD status post CABG, diabetes mellitus, GERD. The patient was admitted on 07/15/2024 with chief complaint of dark vomiting coffee-ground emesis. This reportedly happened twice at [facility] prior to arrival to the ED. He has been seen by GI and the plan is to undergo EGD. Here the patient has been afebrile and hemodynamically stable. Was placed on 6 LPM nasal cannula supplemental oxygen. Labs notable for hemoglobin of 9.0. BMP with nongap metabolic acidosis with serum bicarb 18 on admission. JESSIKA with creatinine 1.49. Low albumin. Mild leukocytosis on admission. Nasopharyngeal swab was negative for SARS-CoV-2/RSV/influenza PCR. Of note the patient was admitted last month to this hospital with acute hypercapnic and hypoxemic respiratory failure. Was eventually discharged home on 4 LPM nasal cannula during the day and prednisone taper. He has previously been on triple therapy with Advair and Incruse. He was discharged to nursing facility and orders for nocturnal BiPAP use sent to his facility. The patient was seen laying in his hospial bed; no acute distress. Underwent EGD this morning without difficulty. Says vomiting has resolved. Currently denies dyspnea, cough, wheezing. Assessment and Plan: Chronic hypercapnic respiratory failure Probable COPD (without current exacerbation) Probable MINERVA Coffee ground emesis - EGD with erythematous gastric mucosa without active bleeding In the setting of heavy smoking history and probable copd, we have to be careful not to label as obesity hypoventilation as there are other causes of hypoventilation/hypercapnia in this patient Currently has mixed acute metabolic (non gaP) acidosis with mild chronic respiratory acidosis). Patient reports not using bipap at his facility. Start auto-bilevel tonight; order placed Continue ics/laba/lama maintenance inhalers here; NICO nebs prn Will continue to follow Adal Prescott MD Pulmonary, Critical Care, and Sleep Medicine Portions of the information within this encounter were entered using an electronic dictation system. Best attempts were made to edit/proofread the information prior to note completion. Despite the review of information, some errors may remain. If there are questions related to the information contained within the note please contact the signing physician directly. Past Medical History: Past Medical History: Diagnosis Date Acute kidney injury (HCC) 09/11/2015 CAD in [place] artery 08/08/2017 COPD (chronic obstructive pulmonary disease) (HCC) Developmental disorder Diabetes mellitus (HCC) Esophageal reflux Gastritis see EGD on 03/29/2016 GERD (gastroesophageal reflux disease) Hyperlipidemia IBS (irritable bowel syndrome) Mixed Obesity Osteoarthritis Pain management Plantar fasciitis, bilateral Unspecified sleep apnea Urinary retention Past Surgical History: Past Surgical History: Procedure Laterality Date CHOLECYSTECTOMY 03/29/20162010 COLONOSCOPY 05/23/2017 COLONOSCOPY 03/29/2016, repeat in 10 years, Dr. Ness, normal except internal hemorrhoid COLONOSCOPY N/A 07/18/2022 Performed by David Chen MD at [facility] OR CORONARY ARTERY BYPASS GRAFT FOOT SURGERY Left 2015 HEMORRHOID SURGERY 1998 INNER EAR SURGERY tube placement in ears LAYERED WOUND CLOSURE N/A 10/16/2017 sternal wound debridment and closure with wound vac OTHER SURGICAL HISTORY 10/24/2017 I&D sternal wound with flap OTHER SURGICAL HISTORY punching bag removal THYROID SURGERY nodule removal 2010 TONSILLECTOMY (HISTORICAL) UPPER GASTROINTESTINAL ENDOSCOPY 04/01/2016 gastritis, duodentitis WISDOM TOOTH EXTRACTION Allergies: Allergies Allergen Reactions Penicillins Other reaction(s): Other (See Comments), Unknown unknown Tetracyclines & Related Other reaction(s): Other (See Comments), Unknown unknown Social History: Social History Substance and Sexual Activity Alcohol Use No Alcohol/week: 0.0 standard drinks of alcohol Social History Substance and Sexual Activity Drug Use No Comment: caffeine use: decaf coffee sometimes Social History Tobacco Use Smoking Status Every Day Current packs/day: 1.00 Average packs/day: 1 pack/day for 51.2 years (51.2 ttl pk-yrs) Types: Cigarettes Start date: 04/28/1973 Smokeless Tobacco Never Family History: Family History Problem Relation Name Age of Onset Heart attack Mother 61.00 Heart disease Father Other ([id number]) Brother accident Coronary artery disease Father Diabetes Father Review of Systems Constitutional: Positive for fatigue. Negative for chills and fever. HENT: Negative for nosebleeds and postnasal drip. Respiratory: Negative for cough, chest tightness, shortness of breath and wheezing. Cardiovascular: Negative for chest pain, palpitations and leg swelling. Gastrointestinal: Positive for abdominal pain, nausea and vomiting. Genitourinary: Negative for difficulty urinating and hematuria. Skin: Negative for rash and wound. Neurological: Negative for syncope, light-headedness and headaches. Psychiatric/Behavioral: Negative for sleep disturbance. Medications: Scheduled Meds:acetaminophen, 1,000 mg, Oral, TID aspirin, 81 mg, Oral, Daily atorvastatin, 80 mg, Oral, Daily carvedilol, 3.125 mg, Oral, BID WC ergocalciferol, 1,250 mcg, Oral, Weekly ezetimibe, 10 mg, Oral, Nightly finasteride, 5 mg, Oral, Daily influenza, 0.5 mL, IntraMUSCular, Once insulin lispro, 0-12 Units, SubCUTAneous, TID WC And insulin lispro, 0-12 Units, SubCUTAneous, Nightly mometasone-formoterol, 2 puff, Inhalation, BID pancrelipase (Khj-Hbgv-Fcqn), 2 capsule, Oral, TID WC pregabalin, 150 mg, Oral, BID tamsulosin, 0.4 mg, Oral, Daily Continuous Infusions:pantoprazole (ProtoNix) 80 mg in sodium chloride 0.9 % 100 mL (0.8 mg/mL) infusion, 8 mg/hr, Last Rate: 8 mg/hr (07/15/242354) sodium chloride, 100 mL/hr, Last Rate: 100 mL/hr (07/15/242354) Data: [facility] within last 24 hours- BMP: Recent Labs 07/15/24 1146 07/16/24 0613 NA 136 139 K 5.1 4.3 CL 107 111* CO2 18* 20* BUN 37* 32* CREATININE 1.49* 1.17 CALCIUM 8.4* 8.5* LFTs: Recent Labs 07/15/24 1146 07/16/24 0613 AST 22 16 ALT 13 9 PROT 6.0* 5.5* ALBUMIN 2.8* 2.5* BILITOT 0.4 0.3 ALKPHOS 94 81 LIPASE 8 -- Glucose: Recent Labs 07/15/24 1146 07/15/24 1621 07/15/24 2058 07/16/24 0613 07/16/24 0850 GLUCOSE 305* -- -- 186* -- POCGLU -- 261* 191* -- 194* Procal: No results for input(s): "PROCAL" in the last 72 hours. CBC: Recent Labs 07/15/24 1146 07/15/24 1711 07/15/24 1731 07/16/24 0005 07/16/24 0613 WBC 12.8* -- -- -- 7.3 HGB 10.0* < > 9.2* 9.1* 9.0* HCT 33.6* -- 30.4* 30.2* 31.0* PLT 221 -- -- -- 194 MCV 90.6 -- -- -- 92.3 RDW 15.9* -- -- -- 15.9* < > = values in this interval not displayed. ABGs: Recent Labs 07/15/24 1711 PHART 7.313* [id number] 46.3 PO2ART 70.1* [id number] 22.9 [id number] Nasal Cannula (LPM) Lactic Acid: No results for input(s): "LACTATE" in the last 72 hours. INR: Recent Labs 07/15/24 1158 07/16/24 0613 INR 1.1 1.0 Cardiac Injury Profile: No results for input(s): "CKTOTAL", "CKMB", "TROPONINI" in the last 72 hours. Labs in Last 3 months: Lab Results Component Value Date TSH 1.209 11/30/2023 VITD25 24 (L) 12/02/2023 INR 1.0 07/16/2024 Microbiology- Urine Cx: Lab Results Component Value Date URINECX >100,000 CFU/mL Proteus mirabilis (A) 12/03/2023 Blood Cx: Lab Results Component Value Date BLOODCX No growth at 5 days 05/30/2024 Sputum Cx: No results found for: RESPCULT Gram Stain: No results found for: LABGRAM PNA PCR: Lab Results Component Value Date HUMANMETAPNE Not Detected 05/30/2024 COVID19: No results found for: COVID19 Legionella Ag: No results found for: "LEGIONELLAPN" Strep Ag: No results for input(s): "STREPPNEUMO" in the last 72 hours. Imaging- CXR portable: Results for orders placed during the hospital encounter of 07/15/24 XR chest 1 view Narrative Patient Name: JAMES REYES : 1955 Exam Date/Time: 07/15/2024 12:10 Procedure: XR CHEST 1 VIEW Ordering Provider: PARISI ANIS Reason For Exam: patient presented for hematemesis but is hypoxic PORTABLE CHEST X-RAY CLINICAL INDICATION: Hematemesis, hypoxia A portable frontal view of the chest was obtained. COMPARISON: 06/10/2024 FINDINGS: Heart size is at the upper limits of normal. Low lung volumes are present. Pulmonary vascular congestion is suspected, similar to the prior examination. No new areas of consolidation are seen. There is no pleural effusion or pneumothorax. There are degenerative changes of the spine. Impression Borderline cardiomegaly. Low lung volumes and pulmonary vascular congestion. No lobar consolidation is seen. Report Dictated on Electronically Signed By: Melvin Scott MD Electronically Signed Date/Time: 07/15/2024 12:22 PM EDT CXR (2V): No results found for this or any previous visit. CT Chest: No results found for this or any previous visit. CTA Chest: No results found for this or any previous visit. Other Studies: Reviewed and as per electronic record. CxR/CT images personally reviewed by me when available; salient findings summarized in A/P. Objective: Vitals: BP 137/62 (BP Location: Right arm, Patient Position: Lying) Pulse 75 Temp 36.2 C (97.1 F) (Temporal) Resp 18 Wt 293 lb (133 kg) SpO2 95% BMI 39.74 kg/m Physical Exam Constitutional: General: He is not in acute distress. Appearance: He is obese. HENT: Head: Normocephalic and atraumatic. Nose: No congestion or rhinorrhea. Comments: Nasal cannula in place Mouth/Throat: Mouth: Mucous membranes are moist. Pharynx: Oropharynx is clear. No oropharyngeal exudate. Eyes: General: No scleral icterus. Right eye: No discharge. Left eye: No discharge. Conjunctiva/sclera: Conjunctivae normal. Cardiovascular: Rate and Rhythm: Normal rate and regular rhythm. Pulses: Normal pulses. Heart sounds: No murmur heard. Pulmonary: Effort: No tachypnea or accessory muscle usage. Breath sounds: No stridor. No wheezing or rhonchi. Abdominal: General: There is no distension. Palpations: Abdomen is soft. Tenderness: There is no abdominal tenderness. Musculoskeletal: Right lower leg: No edema. Left lower leg: No edema. Lymphadenopathy: Cervical: No cervical adenopathy. Skin: General: Skin is warm and dry. Coloration: Skin is not jaundiced. Neurological: Mental Status: He is alert. Mental status is at baseline. Cranial Nerves: No cranial nerve deficit. Sensory: No sensory deficit. Psychiatric: Mood and Affect: Mood normal. Behavior: Behavior normal. Behavior is cooperative. Associated Order(s): IP CONSULT TO GI Images from the original note were not included. GASTROENTEROLOGY CONSULTATION REASON FOR CONSULT: The patient was seen in consultation at the request of Dr. Courtney re: Hematemesis HISTORY OF PRESENT ILLNESS: The patient is a 68 y.o. male with past medical history as listed below who presents with reported coffee-ground emesis x 2. Patient transferred from [facility] with 2 episodes of coffee-ground emesis. No further episodes after admission. Patient denies any prior history of GI bleeding. Known history of GERD. Per the EMR last EGD was in 2015. Results not readily available. Currently patient denies any further nausea, vomiting, hematemesis, abdominal pain. Prior to admission reportedly had a normal BM. No melena or hematochezia. Hemoglobin on admission 10.0. Trending hemoglobins over the past few months in the 9-10 range. Patient does take a daily aspirin. Otherwise no other anticoagulation or excessive NSAIDs. PAST MEDICAL HISTORY: Past Medical History: Diagnosis Date Acute kidney injury (HCC) 09/11/2015 CAD in [place] artery 08/08/2017 COPD (chronic obstructive pulmonary disease) (HCC) Developmental disorder Diabetes mellitus (HCC) Esophageal reflux Gastritis see EGD on 03/29/2016 GERD (gastroesophageal reflux disease) Hyperlipidemia IBS (irritable bowel syndrome) Mixed Obesity Osteoarthritis Pain management Plantar fasciitis, bilateral Unspecified sleep apnea Urinary retention PAST SURGICAL HISTORY: Past Surgical History: Procedure Laterality Date CHOLECYSTECTOMY 03/29/20162010 COLONOSCOPY 05/23/2017 COLONOSCOPY 03/29/2016, repeat in 10 years, Dr. Ness, normal except internal hemorrhoid COLONOSCOPY N/A 07/18/2022 Performed by David Chen MD at [facility] OR CORONARY ARTERY BYPASS GRAFT FOOT SURGERY Left 2014 HEMORRHOID SURGERY 1997 INNER EAR SURGERY tube placement in ears LAYERED WOUND CLOSURE N/A 10/16/2017 sternal wound debridment and closure with wound vac OTHER SURGICAL HISTORY 10/24/2017 I&D sternal wound with flap OTHER SURGICAL HISTORY punching bag removal THYROID SURGERY nodule removal 2010 TONSILLECTOMY (HISTORICAL) UPPER GASTROINTESTINAL ENDOSCOPY 04/01/2016 gastritis, duodentitis WISDOM TOOTH EXTRACTION SOCIAL HISTORY: TOBACCO: Social History Tobacco Use Smoking Status Every Day Current packs/day: 1.00 Average packs/day: 1 pack/day for 51.2 years (51.2 ttl pk-yrs) Types: Cigarettes Start date: 04/28/1973 Smokeless Tobacco Never ETOH: Alcohol Use: Not At Risk (11/30/2023) AUDIT-C Frequency of Alcohol Consumption: Never Average Number of Drinks: Patient does not drink Frequency of Binge Drinking: Never DRUGS: Social History Substance and Sexual Activity Drug Use No Comment: caffeine use: decaf coffee sometimes FAMILY HISTORY: Family History Problem Relation Name Age of Onset Heart attack Mother 61.00 Heart disease Father Other ([id number]) Brother accident Coronary artery disease Father Diabetes Father MEDICATIONS PRIOR TO ADMISSION: Current Outpatient Medications Medication Instructions acetaminophen (TYLENOL) 1,000 mg, 3 times daily Advair Diskus 250-50 MCG/ACT aerosol powder No dose, route, or frequency recorded. albuterol 108 (90 Base) MCG/ACT inhaler 2 puffs, Every 6 hours PRN albuterol 2.5 mg aspirin 81 mg, Daily atorvastatin (LIPITOR) 80 mg, Daily carvedilol (COREG) 3.125 mg, Oral, 2 times daily with meals cholestyramine (Questran) 4 g packet 1 packet, 3 times daily with meals cilostazol (PLETAL) 50 mg, 2 times daily dicyclomine (BENTYL) 10 mg, 3 times daily empagliflozin (JARDIANCE) 25 mg, Daily ergocalciferol (VITAMIN D-2) 1.25 mg, Weekly ezetimibe (ZETIA) 10 mg, Nightly famotidine (PEPCID) 20 mg, Daily finasteride (PROSCAR) 5 mg, Daily fluticasone (Flonase) 50 MCG/ACT nasal spray 1 spray, Daily Incruse Ellipta 62.5 MCG/ACT inhalation 1 puff, Daily insulin glargine (LANTUS) 48 Units, Daily Insulin Lispro (HUMALOG) 16 Units, 3 times daily Menthol, Topical Analgesic, (Biofreeze Cool The Pain) 4 % gel Every 12 hours PRN metFORMIN (GLUCOPHAGE) 500 mg, 2 times daily with meals nabumetone (RELAFEN) 750 mg, 2 times daily nitroglycerin (NITROSTAT) 0.4 mg, Every 5 min PRN nystatin (Mycostatin) cream No dose, route, or frequency recorded. pancrelipase, Eel-Jtpy-Qfzl, (Creon) 50073-22462 units capsule 3 times daily with meals pregabalin (LYRICA) 150 mg, Oral, 2 times daily tamsulosin (FLOMAX) 0.4 mg, Daily CURRENT MEDICATIONS: Current Facility-Administered Medications: acetaminophen (Tylenol) tablet 650 mg, 650 mg, Oral, q6h PRN OR acetaminophen (Tylenol) suppository 650 mg, 650 mg, Rectal, q6h PRN, Bethany Sandhu MD acetaminophen (Tylenol) tablet 1,000 mg, 1,000 mg, Oral, TID, Bethany Sandhu MD, 1,000 mg at 07/16/24 0904 albuterol (2.5 MG/3ML) 0.083% nebulizer solution 2.5 mg, 2.5 mg, Nebulization, 4x daily PRN, Bethany Sandhu MD albuterol 108 (90 Base) MCG/ACT inhaler 2 puff, 2 puff, Inhalation, q6h PRN, Bethany Sandhu MD aspirin chewable tablet 81 mg, 81 mg, Oral, Daily, Bethany Sandhu MD, 81 mg at 07/15/24 1520 atorvastatin (Lipitor) tablet 80 mg, 80 mg, Oral, Daily, Bethany Sandhu MD, 80 mg at 07/16/24 0903 carvedilol (Coreg) tablet 3.125 mg, 3.125 mg, Oral, BID WC, Bethany Sandhu MD, 3.125 mg at 07/16/24 0903 dextrose 5 % infusion, 100 mL/hr, IntraVENous, PRN, Bethany Sandhu MD dextrose 50 % solution 12.5 g, 12.5 g, IntraVENous, PRN, Bethany Sandhu MD Diclofenac Sodium (Voltaren) 1 % gel 2 g, 2 g, Topical, BID PRN, Jorden Null MD ergocalciferol (Vitamin D2) capsule 1,250 mcg, 1,250 mcg, Oral, Weekly, Bethany Sandhu MD, 1,250 mcg at 07/16/24 0903 ezetimibe (Zetia) tablet 10 mg, 10 mg, Oral, Nightly, Bethany Sandhu MD, 10 mg at 07/15/24 213 finasteride (Proscar) tablet 5 mg, 5 mg, Oral, Daily, Bethany Sandhu MD, 5 mg at 07/16/24 0904 glucagon (human recombinant) injection 1 mg, 1 mg, IntraMUSCular, PRN, Bethany Sandhu MD glucose oral gel 15 g, 15 g, Oral, PRN, Bethany Sandhu MD influenza vaccine A&B surf ant adjuvanted (Fluad) HIGH-DOSE injection 0.5 mL, 0.5 mL, IntraMUSCular, Once, Bethany Sandhu MD Insulin Lispro (Humalog) injection 0-12 Units, 0-12 Units, SubCUTAneous, TID WC, 6 Units at 07/15/24 1631 AND Insulin Lispro (Humalog) injection 0-12 Units, 0-12 Units, SubCUTAneous, Nightly, Bethany Sandhu MD, 2 Units at 07/15/242132 mometasone-formoterol (Dulera 100) 100-5 MCG/ACT inhaler 2 puff, 2 puff, Inhalation, BID, Bethany Sandhu MD, 2 puff at 07/16/24 0903 nitroglycerin (Nitrostat) SL tablet 0.4 mg, 0.4 mg, SubLINGual, q5 min PRN, Bethany Sandhu MD ondansetron ODT (Zofran-ODT) disintegrating tablet 4 mg, 4 mg, Oral, q8h PRN OR ondansetron (Zofran) injection 4 mg, 4 mg, IntraVENous, q6h PRN, Bethany Sandhu MD pancrelipase (Pop-Ktzg-Vpmg) (Creon) 6000-19189 units per capsule 2 capsule, 2 capsule, Oral, TID WC, Bethany Sandhu MD, 2 capsule at 07/15/24 1622 pantoprazole (ProtoNix) 80 mg in sodium chloride 0.9 % 100 mL (0.8 mg/mL) infusion, 8 mg/hr, IntraVENous, Continuous, Bethany Sandhu MD, Last Rate: 10 mL/hr at 07/15/24 2355, 8 mg/hr at 07/15/24 2355 polyethylene glycol (PEG) 3350 (Miralax) packet 17 g, 17 g, Oral, Daily PRN, Bethany Sandhu MD pregabalin (Lyrica) capsule 150 mg, 150 mg, Oral, BID, Bethany Sandhu MD, 150 mg at 07/16/24 0903 sodium chloride 0.9 % infusion, 100 mL/hr, IntraVENous, Continuous, Bethany Sandhu MD, Last Rate: 100 mL/hr at 07/15/24 2355, 100 mL/hr at 07/15/24 2355 tamsulosin (Flomax) 24 hr capsule 0.4 mg, 0.4 mg, Oral, Daily, Bethany Sandhu MD, 0.4 mg at 07/16/24 0904 ALLERGIES: Allergies Allergen Reactions Penicillins Other reaction(s): Other (See Comments), Unknown unknown Tetracyclines & Related Other reaction(s): Other (See Comments), Unknown unknown REVIEW OF SYMPTOMS: Ten-point review of symptoms was noted and reviewed in the chart. PHYSICAL EXAM VS:vBP 137/62 (BP Location: Right arm, Patient Position: Lying) Pulse 75 Temp 36.2 C (97.1 F) (Temporal) Resp 18 Wt 293 lb (133 kg) SpO2 95% BMI 39.74 kg/m Body mass index is 39.74 kg/m . GENERAL: Pleasant and NAD. HEENT: Scleral anicteric. Oropharhynx clear with no erythema or exudate. CV: RRR, NL S1/S2 LUNGS: CTA b/l anteriorly ABDOMEN: ,soft, mild RUQ tenderness and non-distended, + BS. No hepatosplenomegaly. No mass felt. No rebound or guarding. EXT: No C/C/E. NEURO: A&O x 3, No obvious focal deficits. LABS AND IMAGING: Recent blood work and relevant radiologic and endoscopic studies were reviewed and discussed with the patient. Results from last 7 days Lab Units 07/16/24 0613 07/16/24 0005 07/15/24 1731 07/15/24 1711 07/15/24 1146 WBC AUTO 10*3/uL 7.3 -- -- -- 12.8* HEMOGLOBIN g/dL 9.0* 9.1* 9.2* -- 10.0* HEMOGLOBIN BG -- -- -- < > -- HEMATOCRIT % 31.0* 30.2* 30.4* -- 33.6* PLATELETS 10*3/uL 194 -- -- -- 221 < > = values in this interval not displayed. Results from last 7 days Lab Units 07/16/24 0613 07/15/24 1146 SODIUM mmol/L 139 136 POTASSIUM mmol/L 4.3 5.1 CHLORIDE mmol/L 111* 107 CO2 mmol/L 20* 18* BUN mg/dL 32* 37* CREATININE mg/dL 1.17 1.49* CALCIUM mg/dL 8.5* 8.4* PROTEIN TOTAL g/dL 5.5* 6.0* BILIRUBIN TOTAL mg/dL 0.3 0.4 ALK PHOS U/L 81 94 ALT U/L 9 13 AST U/L 16 22 GLUCOSE mg/dL 186* 305* Results from last 7 days Lab Units 07/16/24 0613 07/15/24 1158 INR 1.0 1.1 ASSESSMENT: Coffee-ground emesis: Rule out esophagitis, GERD with gastritis, PUD, neoplasm. Currently hemodynamically stable and minimal drop in hemoglobin from baseline. No current evidence of active bleeding. GERD RUQ pain: Mild in severity and elicited only on physical exam. LFTs WNL. PLAN: Proceed with EGD for further evaluation Continue PPI Monitor hemoglobin and transfuse as needed If RUQ pain persists then proceed with RUQ US. Further recommendations pending above workup. (Comment: Please note this report has been produced using speech recognition software and may contain errors related to that system including errors in grammar, punctuation, and spelling, as well as words and phrases that may be inappropriate. If there are any questions or concerns please feel free to contact the dictating provider for clarification.) Electronically signed by Jaret Blackwood DO 07/16/2024 9:12 AM documented in this encounter [facility] 07-16-2024 Evaluation + Plan note POST ENDOSCOPY PROCEDURE TRANSFER REPORT Procedure completed: EGD Findings:See Dr Blackwood' Report Specimens obtained: Yes Medications administered: See Anesthesia Record Additional Info: No adverse events or complications. For additional Questions please call Endoscopy at [phone]. Thank You! [facility] 07-16-2024 [facility] James [facility] Procedure Date: 07/16/2024 10:45 AM Gender: Male Date of : 1955 Age: 68 Admit Type: Inpatient Note Status: Finalized Endoscopist: Jaret Blackwood DO, [id number] Procedure: Upper GI endoscopy Indications: Coffee-ground emesis Findings: The examined esophagus was normal. A 3 cm hiatal hernia was present. Diffuse mild mucosal changes characterized by erythema and granularity were found in the gastric body and in the gastric antrum. Biopsies were taken with a cold forceps for histology. The cardia and gastric fundus were normal on retroflexion. Patchy moderate mucosal changes characterized by erythema and friability (with contact bleeding) were found in the duodenal bulb and in the second portion of the duodenum. Biopsies were taken with a cold forceps for histology. Impression: - Normal esophagus. - 3 cm hiatal hernia. - Erythematous and granular mucosa in the gastric body and antrum. Biopsied. - Mucosal changes in the duodenum. Biopsied. Recommendation: - Resume previous diet. - Continue present medications. - PPI daily - Await pathology results. Referring MD: Chelle Troncoso MD Medicines: Monitored Anesthesia Care, See the Anesthesia note for documentation of the administered medications Procedure: Pre-Anesthesia Assessment: - Prior to the procedure, a History and Physical was performed, and patient medications and allergies were reviewed. The patient's tolerance of previous anesthesia was also reviewed. The risks and benefits of the procedure and the sedation options and risks were discussed with the patient. All questions were answered, and informed consent was obtained. Prior Anticoagulants: The patient has taken no anticoagulant or antiplatelet agents except for aspirin. ASA Grade Assessment: III - A patient with severe systemic disease. After reviewing the risks and benefits, the patient was deemed in satisfactory condition to undergo the procedure. After obtaining informed consent, the endoscope was passed under direct vision. Throughout the procedure, the patient's blood pressure, pulse, and oxygen saturations were monitored continuously. The Endoscope was introduced through the mouth, and advanced to the second part of duodenum. The upper GI endoscopy was accomplished without difficulty. The patient tolerated the procedure well. Complications: No immediate complications. Procedure Code(s): --- Professional --- 64780, Esophagogastroduodenoscopy, flexible, transoral; with biopsy, single or multiple --- Technical --- 44159, Esophagogastroduodenoscopy, flexible, transoral; with biopsy, single or multiple Diagnosis Code(s): --- Professional --- K44.9, Diaphragmatic hernia without obstruction or gangrene K31.89, Other diseases of stomach and duodenum K92.0, Hematemesis --- Technical --- K44.9, Diaphragmatic hernia without obstruction or gangrene K31.89, Other diseases of stomach and duodenum K92.0, Hematemesis CPT copyright 2021 [employer]. All rights reserved. The codes documented in this report are preliminary and upon medical insurance coder review may be revised to meet current compliance requirements. Attending Participation: I personally performed the entire procedure. Jaret Blackwood DO 07/16/2024 11:48:32 AM This report has been signed electronically. Number of Addenda: 0 Note Initiated On: 07/16/2024 10:45 AM [facility] 07-16-2024 Plan of care note Problem: Knowledge Deficit Goal: Patient/family/caregiver demonstrates understanding of disease process, treatment plan, medications, and discharge instructions Outcome: Progressing Problem: Potential for Compromised Skin Integrity Goal: Skin Integrity is Maintained or Improved Outcome: Progressing [facility] 07-16-2024 Note Patient declined smo janey cessation counseling. Accepting of handout with contact information for future reference. [facility] 07-16-2024 Consult note Associated Order (s): IP CONSULT TO GI Images from the original note were not included. GASTROENTEROLOGY CONSULTATION REASON FOR CONSULT: The patient was seen in consultation at the request of Dr. Courtney re: Hematemesis HISTORY OF PRESENT ILLNESS: The patient is a 68 y.o. male with past medical history as listed below who presents with reported coffee-ground emesis x 2. Patient transferred from [facility] with 2 episodes of coffee-ground emesis. No further episodes after admission. Patient denies any prior history of GI bleeding. Known history of GERD. Per the EMR last EGD was in 2015. Results not readily available. Currently patient denies any further nausea, vomiting, hematemesis, abdominal pain. Prior to admission reportedly had a normal BM. No melena or hematochezia. Hemoglobin on admission 10.0. Trending hemoglobins over the past few months in the 9-10 range. Patient does take a daily aspirin. Otherwise no other anticoagulation or excessive NSAIDs. PAST MEDICAL HISTORY: Past Medical History: Diagnosis Date Acute kidney injury (HCC) 09/11/2015 CAD in [place] artery 08/08/2017 COPD (chronic obstructive pulmonary disease) (HCC) Developmental disorder Diabetes mellitus (HCC) Esophageal reflux Gastritis see EGD on 03/29/2016 GERD (gastroesophageal reflux disease) Hyperlipidemia IBS (irritable bowel syndrome) Mixed Obesity Osteoarthritis Pain management Plantar fasciitis, bilateral Unspecified sleep apnea Urinary retention PAST SURGICAL HISTORY: Past Surgical History: Procedure Laterality Date CHOLECYSTECTOMY 03/29/20162010 COLONOSCOPY 05/23/2017 COLONOSCOPY 03/29/2016, repeat in 10 years, Dr. Ness, normal except internal hemorrhoid COLONOSCOPY N/A 07/18/2022 Performed by David Chen MD at [facility] OR CORONARY ARTERY BYPASS GRAFT FOOT SURGERY Left 2014 HEMORRHOID SURGERY 1997 INNER EAR SURGERY tube placement in ears LAYERED WOUND CLOSURE N/A 10/16/2017 sternal wound debridment and closure with wound vac OTHER SURGICAL HISTORY 10/24/2017 I&D sternal wound with flap OTHER SURGICAL HISTORY punching bag removal THYROID SURGERY nodule removal 2010 TONSILLECTOMY (HISTORICAL) UPPER GASTROINTESTINAL ENDOSCOPY 04/01/2016 gastritis, duodentitis WISDOM TOOTH EXTRACTION SOCIAL HISTORY: TOBACCO: Social History Tobacco Use Smoking Status Every Day Current packs/day: 1.00 Average packs/day: 1 pack/day for 51.2 years (51.2 ttl pk-yrs) Types: Cigarettes Start date: 04/28/1973 Smokeless Tobacco Never ETOH: Alcohol Use: Not At Risk (11/30/2023) AUDIT-C Frequency of Alcohol Consumption: Never Average Number of Drinks: Patient does not drink Frequency of Binge Drinking: Never DRUGS: Social History Substance and Sexual Activity Drug Use No Comment: caffeine use: decaf coffee sometimes FAMILY HISTORY: Family History Problem Relation Name Age of Onset Heart attack Mother 61.00 Heart disease Father Other ([id number]) Brother accident Coronary artery disease Father Diabetes Father MEDICATIONS PRIOR TO ADMISSION: Current Outpatient Medications Medication Instructions acetaminophen (TYLENOL) 1,000 mg, 3 times daily Advair Diskus 250-50 MCG/ACT aerosol powder No dose, route, or frequency recorded. albuterol 108 (90 Base) MCG/ACT inhaler 2 puffs, Every 6 hours PRN albuterol 2.5 mg aspirin 81 mg, Daily atorvastatin (LIPITOR) 80 mg, Daily carvedilol (COREG) 3.125 mg, Oral, 2 times daily with meals cholestyramine (Questran) 4 g packet 1 packet, 3 times daily with meals cilostazol (PLETAL) 50 mg, 2 times daily dicyclomine (BENTYL) 10 mg, 3 times daily empagliflozin (JARDIANCE) 25 mg, Daily ergocalciferol (VITAMIN D-2) 1.25 mg, Weekly ezetimibe (ZETIA) 10 mg, Nightly famotidine (PEPCID) 20 mg, Daily finasteride (PROSCAR) 5 mg, Daily fluticasone (Flonase) 50 MCG/ACT nasal spray 1 spray, Daily Incruse Ellipta 62.5 MCG/ACT inhalation 1 puff, Daily insulin glargine (LANTUS) 48 Units, Daily Insulin Lispro (HUMALOG) 16 Units, 3 times daily Menthol, Topical Analgesic, (Biofreeze Cool The Pain) 4 % gel Every 12 hours PRN metFORMIN (GLUCOPHAGE) 500 mg, 2 times daily with meals nabumetone (RELAFEN) 750 mg, 2 times daily nitroglycerin (NITROSTAT) 0.4 mg, Every 5 min PRN nystatin (Mycostatin) cream No dose, route, or frequency recorded. pancrelipase, Ltb-Dcxp-Pbos, (Creon) 03501-76518 units capsule 3 times daily with meals pregabalin (LYRICA) 150 mg, Oral, 2 times daily tamsulosin (FLOMAX) 0.4 mg, Daily CURRENT MEDICATIONS: Current Facility-Administered Medications: acetaminophen (Tylenol) tablet 650 mg, 650 mg, Oral, q6h PRN OR acetaminophen (Tylenol) suppository 650 mg, 650 mg, Rectal, q6h PRN, Bethany Sandhu MD acetaminophen (Tylenol) tablet 1,000 mg, 1,000 mg, Oral, TID, Bethany Sandhu MD, 1,000 mg at 07/16/24 0904 albuterol (2.5 MG/3ML) 0.083% nebulizer solution 2.5 mg, 2.5 mg, Nebulization, 4x daily PRN, Bethany Sandhu MD albuterol 108 (90 Base) MCG/ACT inhaler 2 puff, 2 puff, Inhalation, q6h PRN, Bethany Sandhu MD aspirin chewable tablet 81 mg, 81 mg, Oral, Daily, Bethany Sandhu MD, 81 mg at 07/15/24 1520 atorvastatin (Lipitor) tablet 80 mg, 80 mg, Oral, Daily, Bethany Sandhu MD, 80 mg at 07/16/24 0903 carvedilol (Coreg) tablet 3.125 mg, 3.125 mg, Oral, BID WC, Bethany Sandhu MD, 3.125 mg at 07/16/24 0903 dextrose 5 % infusion, 100 mL/hr, IntraVENous, PRN, Bethany Sandhu MD dextrose 50 % solution 12.5 g, 12.5 g, IntraVENous, PRN, Bethany Sandhu MD Diclofenac Sodium (Voltaren) 1 % gel 2 g, 2 g, Topical, BID PRN, Jorden Null MD ergocalciferol (Vitamin D2) capsule 1,250 mcg, 1,250 mcg, Oral, Weekly, Bethany Sandhu MD, 1,250 mcg at 07/16/24 0903 ezetimibe (Zetia) tablet 10 mg, 10 mg, Oral, Nightly, Bethayn Sandhu MD, 10 mg at 07/15/24 2131 finasteride (Proscar) tablet 5 mg, 5 mg, Oral, Daily, Bethany Sandhu MD, 5 mg at 07/16/24 0904 glucagon (human recombinant) injection 1 mg, 1 mg, IntraMUSCular, PRN, Bethany Sandhu MD glucose oral gel 15 g, 15 g, Oral, PRN, Bethany Sandhu MD influenza vaccine A&B surf ant adjuvanted (Fluad) HIGH-DOSE injection 0.5 mL, 0.5 mL, IntraMUSCular, Once, Bethany Sandhu MD Insulin Lispro (Humalog) injection 0-12 Units, 0-12 Units, SubCUTAneous, TID WC, 6 Units at 07/15/24 1631 AND Insulin Lispro (Humalog) injection 0-12 Units, 0-12 Units, SubCUTAneous, Nightly, Bethany Sandhu MD, 2 Units at 07/15/24 213 mometasone-formoterol (Dulera 100) 100-5 MCG/ACT inhaler 2 puff, 2 puff, Inhalation, BID, Bethany Sandhu MD, 2 puff at 07/16/24 0903 nitroglycerin (Nitrostat) SL tablet 0.4 mg, 0.4 mg, SubLINGual, q5 min PRN, Bethany Sandhu MD ondansetron ODT (Zofran-ODT) disintegrating tablet 4 mg, 4 mg, Oral, q8h PRN OR ondansetron (Zofran) injection 4 mg, 4 mg, IntraVENous, q6h PRN, Bethany Sandhu MD pancrelipase (Hlx-Aewp-Yisw) (Creon) 6000-48547 units per capsule 2 capsule, 2 capsule, Oral, TID WC, Bethany Sandhu MD, 2 capsule at 07/15/24 162 pantoprazole (ProtoNix) 80 mg in sodium chloride 0.9 % 100 mL (0.8 mg/mL) infusion, 8 mg/hr, IntraVENous, Continuous, Bethany Sandhu MD, Last Rate: 10 mL/hr at 07/15/242354, 8 mg/hr at 07/15/242354 polyethylene glycol (PEG) 3350 (Miralax) packet 17 g, 17 g, Oral, Daily PRN, Bethany Sandhu MD pregabalin (Lyrica) capsule 150 mg, 150 mg, Oral, BID, Bethany Sandhu MD, 150 mg at 07/16/24902 sodium chloride 0.9 % infusion, 100 mL/hr, IntraVENous, Continuous, Bethany Sandhu MD, Last Rate: 100 mL/hr at 07/15/242354, 100 mL/hr at 07/15/242354 tamsulosin (Flomax) 24 hr capsule 0.4 mg, 0.4 mg, Oral, Daily, Bethany Sandhu MD, 0.4 mg at 07/16/24903 ALLERGIES: Allergies Allergen Reactions Penicillins Other reaction(s): Other (See Comments), Unknown unknown Tetracyclines & Related Other reaction(s): Other (See Comments), Unknown unknown REVIEW OF SYMPTOMS: Ten-point review of symptoms was noted and reviewed in the chart. PHYSICAL EXAM VS:vBP 137/62 (BP Location: Right arm, Patient Position: Lying) Pulse 75 Temp 36.2 C (97.1 F) (Temporal) Resp 18 Wt 293 lb (133 kg) SpO2 95% BMI 39.74 kg/m Body mass index is 39.74 kg/m . GENERAL: Pleasant and NAD. HEENT: Scleral anicteric. Oropharhynx clear with no erythema or exudate. CV: RRR, NL S1/S2 LUNGS: CTA b/l anteriorly ABDOMEN: ,soft, mild RUQ tenderness and non-distended, + BS. No hepatosplenomegaly. No mass felt. No rebound or guarding. EXT: No C/C/E. NEURO: A&O x 3, No obvious focal deficits. LABS AND IMAGING: Recent blood work and relevant radiologic and endoscopic studies were reviewed and discussed with the patient. Results from last 7 days Lab Units 07/16/24 0613 07/16/24 0005 07/15/24 1731 07/15/24 1711 07/15/24 1146 WBC AUTO 10*3/uL 7.3 -- -- -- 12.8* HEMOGLOBIN g/dL 9.0* 9.1* 9.2* -- 10.0* HEMOGLOBIN BG -- -- -- < > -- HEMATOCRIT % 31.0* 30.2* 30.4* -- 33.6* PLATELETS 10*3/uL 194 -- -- -- 221 < > = values in this interval not displayed. Results from last 7 days Lab Units 07/16/24 0613 07/15/24 1146 SODIUM mmol/L 139 136 POTASSIUM mmol/L 4.3 5.1 CHLORIDE mmol/L 111* 107 CO2 mmol/L 20* 18* BUN mg/dL 32* 37* CREATININE mg/dL 1.17 1.49* CALCIUM mg/dL 8.5* 8.4* PROTEIN TOTAL g/dL 5.5* 6.0* BILIRUBIN TOTAL mg/dL 0.3 0.4 ALK PHOS U/L 81 94 ALT U/L 9 13 AST U/L 16 22 GLUCOSE mg/dL 186* 305* Results from last 7 days Lab Units 07/16/24 0613 07/15/24 1158 INR 1.0 1.1 ASSESSMENT: Coffee-ground emesis: Rule out esophagitis, GERD with gastritis, PUD, neoplasm. Currently hemodynamically stable and minimal drop in hemoglobin from baseline. No current evidence of active bleeding. GERD RUQ pain: Mild in severity and elicited only on physical exam. LFTs WNL. PLAN: Proceed with EGD for further evaluation Continue PPI Monitor hemoglobin and transfuse as needed If RUQ pain persists then proceed with RUQ US. Further recommendations pending above workup. (Comment: Please note this report has been produced using speech recognition software and may contain errors related to that system including errors in grammar, punctuation, and spelling, as well as words and phrases that may be inappropriate. If there are any questions or concerns please feel free to contact the dictating provider for clarification.) Electronically signed by Jaret Blackwood DO 07/16/2024 9:12 AM [facility] Work Phone: 07-15-2024 Emergency department Note Patient taken to the floor via medic. [facility] 07-15-2024 Emergency department Note Patient taken to the floor via medic. Emergency Department Encounter Pt Name: James Reyes Birthdate 1955 Date of evaluation: 07/15/2024 Provider: Amanuel Parisi MD CHIEF COMPLAINT Chief Complaint Patient presents with Vomiting Blood HISTORY OF PRESENT ILLNESS HPI James Ryees is a 68 y.o. male brought to ED from nursing facility due to concern for bloody vomiting. Patient states that yesterday he vomited and "they" said it look like coffee grounds, and today it look like blood. He has not had any pain in his abdomen or back or chest. He has not had blood in the stool. He has not had the symptoms before. He is not a helpful historian beyond this and has very limited knowledge of his medical conditions. He does not know if he typically uses a nasal cannula or how much vision he is on. According to penitentiary paperwork, he is on baby aspirin and no blood thinners. PMH includes esophageal reflux and gastritis and diabetes Nursing Notes were reviewed. Past Medical History: Diagnosis Date Acute kidney injury (HCC) 09/11/2015 CAD in [place] artery 08/08/2017 COPD (chronic obstructive pulmonary disease) (HCC) Developmental disorder Diabetes mellitus (HCC) Esophageal reflux Gastritis see EGD on 03/29/2016 GERD (gastroesophageal reflux disease) Hyperlipidemia IBS (irritable bowel syndrome) Mixed Obesity Osteoarthritis Pain management Plantar fasciitis, bilateral Unspecified sleep apnea Urinary retention REVIEW OF SYSTEMS Several elements of the ROS reviewed and otherwise acutely negative except as in the HPI. PHYSICAL EXAM ED Triage Vitals [07/15/24 1140] Temp Heart Rate Resp BP 36.7 C (98 F) 90 20 129/61 SpO2 Temp Source Heart Rate Source Patient Position (!) 88 % Oral Monitor Sitting BP Location FiO2 (%) Left arm -- Physical Exam Vitals and nursing note reviewed. Constitutional: General: He is not in acute distress. Appearance: He is well-developed. He is obese. He is not ill-appearing. HENT: Head: Normocephalic and atraumatic. Eyes: Conjunctiva/sclera: Conjunctivae normal. Cardiovascular: Rate and Rhythm: Normal rate and regular rhythm. Heart sounds: No murmur heard. Pulmonary: Effort: Pulmonary effort is normal. No respiratory distress. Breath sounds: Normal breath sounds. Abdominal: Palpations: Abdomen is soft. Tenderness: There is no abdominal tenderness. Musculoskeletal: General: No swelling. Cervical back: Neck supple. Skin: General: Skin is warm and dry. Coloration: Skin is not pale. Neurological: Mental Status: He is alert. Psychiatric: Mood and Affect: Mood normal. EMERGENCY DEPARTMENT COURSE and DIFFERENTIAL DIAGNOSIS/MDM: Differential diagnoses include: Upper GI bleeding that could be variceal bleeding, peptic ulcer disease, malignancy, he could have a clotting disorder or anemia. Per my review of the most recent discharge summary from 06/04/2024 and the last change pulmonology progress note, he was on 4 L nasal cannula prior to discharge. This may be his baseline. Will do a chest x-ray just to be sure there is no evidence of pneumonia or pulmonary edema and we will also check a COVID flu RSV swab. Sources of history: I reviewed the discharge summary from his recent hospitalization, discharge summary from 06/04/2024. At that time he had severe sepsis, COPD, hypoxemic hypercapnic respiratory failure. Also noted history of developmental delay and dilated ascending aorta. Diagnostic tests considered but not performed: CT/CTA abd pel - do not believe this will change management analyst. ED course: Diagnoses as of 07/15/24 1430 Hematemesis ED medications managed: Medications pantoprazole (ProtoNix) 40 mg in sodium chloride (PF) 0.9 % 10 mL injection (40 mg IntraVENous Given 07/15/24 1212) Chronic conditions and social determinants of health affecting care: COPD DISPOSITION/PLAN Admit 07/15/2024 01:32:16 PM Amanuel Parisi MD Emergency Medicine Amanuel Parisi MD 07/16/24 0809 Patient arrives from SNF via ambulance due to coffee ground emesis twice. documented in this encounter [facility] 07-15-2024 Note Formatting of this n ote might be different from the original. [facility] bed[facility] at [facility] and can return when medically stable. . [facility] 07-15-2024 Note Formatting of this n ote might be different from the original. [facility] patient is [facility] and bedhold at [facility] and can return when medically stable. . [facility] 07-15-2024 Hospital Discharge instructions Isael Ash RN - 07/15/2024 3:22 PM EDT Images from the original note were not included. Continuity of Care Form Patient Name: James Reyes : 1955 Admit date: 07/15/2024 Discharge date: 07/17/2024 Code Status Order: Full Code Advance Directives: N Admitting Physician: Bethany Sandhu MD PCP: Chelle Troncoso MD Discharging Nurse: Isael Ash RN Discharging Hospital Unit/Room#: Discharging Unit Emergency Contact: Extended Emergency Contact Information Primary Emergency Contact: Sreekanth Reyes Relation: Sibling Past Surgical History: Past Surgical History: Procedure Laterality Date CHOLECYSTECTOMY 03/29/20162010 COLONOSCOPY 05/23/2017 COLONOSCOPY 03/29/2016, repeat in 10 years, Dr. Ness, normal except internal hemorrhoid COLONOSCOPY N/A 07/18/2022 Performed by David Chen MD at [facility] OR CORONARY ARTERY BYPASS GRAFT FOOT SURGERY Left 2015 HEMORRHOID SURGERY 1998 INNER EAR SURGERY tube placement in ears LAYERED WOUND CLOSURE N/A 10/16/2017 sternal wound debridment and closure with wound vac OTHER SURGICAL HISTORY 10/24/2017 I&D sternal wound with flap OTHER SURGICAL HISTORY punching bag removal THYROID SURGERY nodule removal 2010 TONSILLECTOMY (HISTORICAL) UPPER GASTROINTESTINAL ENDOSCOPY 04/01/2016 gastritis, duodentitis WISDOM TOOTH EXTRACTION Immunization History: Immunization History Administered Date(s) Administered Covid-19, Pfizer Bivalent Booster, (Age 12y+), Im, 30 Mcg/0e 03/01/2022 Influenza, High Dose Seasonal, Preservative Free 01/04/2017 Influenza, Unspecified 01/08/2015 Pfizer SARS-CoV-2 Vaccination 04/15/2020, 05/06/2020, 02/02/2021, 09/01/2021 Pneumococcal Conjugate, Unspecified 09/20/2013 Tdap 11/29/2023 Active Problems: Medical Problems Problem List * (Principal) Hematemesis IBS (irritable bowel syndrome) Overview Signed 01/27/2022 12:43 PM by Interface, Incoming Problems- [facility] Conversion Mixed Closed head injury, initial encounter Acute hypercapnic respiratory failure (HCC) Shoulder pain, left Dyslipidemia Knee pain, bilateral Knee osteoarthritis Insulin dependent diabetes mellitus MINERVA (obstructive sleep apnea) Tobacco abuse Esophagitis, reflux Morbid obesity (HCC) Type 2 diabetes, uncontrolled, with neuropathy Wound disruption, post-op, skin, initial encounter Uncontrolled type 2 diabetes mellitus with hyperglycemia, with long-term current use of insulin (HCC) CAD in [place] artery Uncontrolled type 2 diabetes mellitus with complication, with long-term current use of insulin Pseudomonas aeruginosa infection Angina at rest (HCC) Sternal wound dehiscence 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 Enlarged prostate with lower urinary tract symptoms (LUTS) Hypertensive heart disease Overview Signed 01/27/2022 12:43 PM by Interface, Incoming Problems- [facility] Conversion [facility] 55% EF SHOWS HYPERTENSIVE HEART DISEASE COPD (chronic obstructive pulmonary disease) ([facility]) Overview Signed 01/27/2022 12:43 PM by Interface, Incoming Problems- [facility] Conversion PATIENT IS ON 2 LITER OF OXYGEN AND NOW IS SEEING DR ESTRADA WAS TESTED TERRELL AND QUALIFED HOME OXYGEN 07/17/2015 Arthritis of foot, degenerative Hiatal hernia Colitis Chest pain Anemia Colitis, collagenous Gastroesophageal reflux disease without esophagitis Isolation/Infection: Droplet Plus Respiratory Rule-Out Nurse Assessment: Last Vital Signs: BP 131/68 Pulse 88 Temp 36.7 C (98 F) (Oral) Resp 20 Wt 133 kg (293 lb) SpO2 93% BMI 39.74 kg/m Last documented pain score (0-10 scale): Last Weight: Wt Readings from Last 1 Encounters: 07/15/24 133 kg (293 lb) Mental Status: CRUZ Patient Mental Status: disoriented and oriented IV Access: CRUZ IV Access: None Nursing Mobility/ADLs: Walking Total assistance Transfer Total assistance Bathing Minimal assistance Dressing Total assistance Toileting Minimal assistance Feeding Independent Chain Person Independent Med Delivery no Wound Care Documentation and Therapy: Elimination: Continence: Bowel: yes Bladder: yes Urinary Catheter: None Colostomy/Ileostomy/Ileal Conduit: None Date of Last BM: 07/17/2024 No intake or output data in the 24 hours ending 07/15/24 1521 No intake/output data recorded. Safety Concerns: history of falls (last 30 days) Impairments/Disabilities: none Nutrition Therapy: Current Nutrition Therapy: Oral diet: general and carb control 4 carbs/meal (1800kcals/day) Routes of Feeding: oral Liquids: thin liquids Daily Fluid Restriction: no Last Modified Barium Swallow with Video (Video Swallowing Test): not done Treatments at the Time of Hospital Discharge: Respiratory Treatments: 4 litres per min Oxygen Therapy: is on oxygen at 4 L/min per nasal cannula. Ventilator: AutoBiPAP Max IPAP 25 cm H2O, Min EPAP 5 cm H2O, 5 liter bleed, PSV 5 cm H2O with full face mask size medium. Please use at HS and with daytime naps. Rehab Therapies: physical therapy, occupational therapy, nursing, and aide Weight Bearing Status/Restrictions: no restriction Other Medical Equipment (for information only, NOT a DME order): wheeled walker Other Treatments: none Patient's personal belongings (please select all that are sent with patient): dentures upper RN SIGNATURE: MANAGEMENT/SOCIAL WORK SECTION Inpatient Status Date: Discharging to Facility/ Agency [facility] Address:[address] [place] [address] Dialysis Facility (if applicable) Name: Address: Dialysis Schedule: Phone: Fax: Hand Embroiderer/Box Person signature: ICIAN SECTION Name: James Reyes Prognosis: fair Condition at Discharge: stable Rehab Potential (if transferring to Rehab): good Recommended Labs or Other Treatments After Discharge: AutoBiPAP Max IPAP 25 cm H2O, Min EPAP 5 cm H2O, 5 liter bleed, PSV 5 cm H2O with full face mask size medium. Please use at HS and with daytime naps. The individual is being admitted to a nursing facility directly from an [facility] or a unit of a [facility] that is not operated by or licensed by [facility] under section 5119.14 or 5160-3-15.1 5 The individual requires the level of services provided by a nursing facility for the condition for which he or she was treated in the hospital and, Physician Certification: I certify the above information and transfer of James Reyes is necessary for the continuing treatment of the diagnosis listed and that he requires fpc facility for greater than 30 days. Update Admission H&P: No change in H&P PHYSICIAN SIGNATURE: documented in this encounter [facility] 07-15-2024 Note Formatting of this n ote might be different from the original. [facility]. . [facility] 07-15-2024 Note Formatting of this n ote might be different from the original. [facility]. . [facility] 07-15-2024 Note [facility] plac [facility]. . [facility] 07-15-2024 History and physical note Attending History and Physical Admit Date: 07/15/2024 PCP: Chelle Troncoso MD CHIEF COMPLAINT: I am vomiting blood Reason for Admission: Acute upper GI bleed, hematemesis History Obtained From: Patient and the ED physician HISTORY OF PRESENT ILLNESS: James is a 68 y.o. male with past medical history below who presents with chief complaint dark vomit and coffee-ground emesis 2 times prior to admission to the ER, in the ER he did not have any episode, patient is from [facility] , on review of records he is on nabumetone and aspirin, he is type II diabetic on insulin Was given Protonix IV, patient also dropped his sats and became lethargic, he was placed on Ventimask which improved his sats, denies being on BiPAP or CPAP at the facility, called the nurse at the facility and awaiting callback. In the ER H&H 10/33.6, BUN/creatinine 37/1.49, INR of 1.1 Chest x-ray showed Borderline cardiomegaly. Low lung volumes and pulmonary vascular congestion. No lobar consolidation is seen. Will admit for further evaluation and management. Past Medical History: Past Medical History: Diagnosis Date Acute kidney injury (HCC) 09/11/2015 CAD in [place] artery 08/08/2017 COPD (chronic obstructive pulmonary disease) (HCC) Developmental disorder Diabetes mellitus (HCC) Esophageal reflux Gastritis see EGD on 03/29/2016 GERD (gastroesophageal reflux disease) Hyperlipidemia IBS (irritable bowel syndrome) Mixed Obesity Osteoarthritis Pain management Plantar fasciitis, bilateral Unspecified sleep apnea Urinary retention Past Surgical History: Past Surgical History: Procedure Laterality Date CHOLECYSTECTOMY 03/29/20162010 COLONOSCOPY 05/23/2017 COLONOSCOPY 03/29/2016, repeat in 10 years, Dr. Ness, normal except internal hemorrhoid COLONOSCOPY N/A 07/18/2022 Performed by David Chen MD at [facility] OR CORONARY ARTERY BYPASS GRAFT FOOT SURGERY Left 2015 HEMORRHOID SURGERY 1998 INNER EAR SURGERY tube placement in ears LAYERED WOUND CLOSURE N/A 10/16/2017 sternal wound debridment and closure with wound vac OTHER SURGICAL HISTORY 10/24/2017 I&D sternal wound with flap OTHER SURGICAL HISTORY punching bag removal THYROID SURGERY nodule removal 2010 TONSILLECTOMY (HISTORICAL) UPPER GASTROINTESTINAL ENDOSCOPY 04/01/2016 gastritis, duodentitis WISDOM TOOTH EXTRACTION Social History: Social History Socioeconomic History Marital status: Single Spouse name: Not on file Number of children: Not on file Years of education: Not on file Highest education level: Not on file Occupational History Not on file Tobacco Use Smoking status: Every Day Current packs/day: 1.00 Average packs/day: 1 pack/day for 51.2 years (51.2 ttl pk-yrs) Types: Cigarettes Start date: 04/28/1973 Smokeless tobacco: Never Vaping Use Vaping status: Never Used Substance and Sexual Activity Alcohol use: No Alcohol/week: 0.0 standard drinks of alcohol Drug use: No Comment: caffeine use: decaf coffee sometimes Sexual activity: Not on file Comment: single Other Topics Concern Not on file Social History Narrative Not on file Social Drivers of Health Financial Resource Strain: Not on file Food Insecurity: Not on file Transportation Needs: No Transportation Needs (11/30/2023) PRAPARE - Transportation Lack of Transportation (Medical): No Lack of Transportation (Non-Medical): No Physical Activity: Not on file Stress: Not on file Social Connections: Not on file Intimate Partner Violence: Not At Risk (11/30/2023) Humiliation, Afraid, Rape, and Kick questionnaire Fear of Current or Ex-Partner: No Emotionally Abused: No Physically Abused: No Sexually Abused: No Housing Stability: Low Risk (11/30/2023) Housing Stability Vital Sign Unable to Pay for Housing in the Last Year: No Number of Times Moved in the Last Year: 0 Homeless in the Last Year: No Family History: Family History Problem Relation Name Age of Onset Heart attack Mother 61.00 Heart disease Father Other ([id number]) Brother accident Coronary artery disease Father Diabetes Father Medications Prior to Admission: No current facility-administered medications on file prior to encounter. Current Outpatient Medications on File Prior to Encounter Medication Sig Dispense Refill acetaminophen (Tylenol) 325 MG tablet Take 1,000 mg by mouth 3 times daily. Advair Diskus 250-50 MCG/ACT aerosol powder albuterol (2.5 MG/3ML) 0.083% nebulizer solution Inhale 2.5 mg. albuterol 108 (90 Base) MCG/ACT inhaler Inhale 2 puffs every 6 hours as needed. aspirin 81 MG chewable tablet Chew 81 mg daily. atorvastatin (Lipitor) 80 MG tablet Take 80 mg by mouth in the morning. carvedilol (Coreg) 6.25 MG tablet Take 0.5 tablets (3.125 mg) by mouth 2 times daily (with meals). 30 tablet 3 cholestyramine (Questran) 4 g packet Take 1 packet by mouth in the morning and 1 packet at noon and 1 packet in the evening. Take with meals. cilostazol (Pletal) 50 MG tablet Take 50 mg by mouth 2 times daily. dicyclomine (Bentyl) 10 MG capsule Take 10 mg by mouth 3 times daily. empagliflozin (Jardiance) 25 MG Take 25 mg by mouth daily. ergocalciferol (Vitamin D-2) 1.25 MG (66369 UT) capsule Take 1.25 mg by mouth 1 (one) time per week. Every Monday ezetimibe (Zetia) 10 MG tablet Take 10 mg by mouth Nightly. famotidine (Pepcid) 20 MG tablet Take 20 mg by mouth in the morning. finasteride (Proscar) 5 MG tablet Take 5 mg by mouth in the morning. fluticasone (Flonase) 50 MCG/ACT nasal spray Administer 1 spray into each nostril daily. Shake gently. Before first use, prime pump. After use, clean tip and replace cap. Incruse Ellipta 62.5 MCG/ACT inhalation Inhale 1 puff daily. insulin glargine (Lantus) 100 UNIT/ML injection Inject 48 Units under the skin in the morning. Insulin Lispro (Humalog) 100 UNIT/ML solution injection Inject 16 Units under the skin in the morning and 16 Units at noon and 16 Units in the evening. Menthol, Topical Analgesic, (Biofreeze Cool The Pain) 4 % gel Apply topically every 12 hours as needed (lower back). metFORMIN (Glucophage) 500 MG tablet Take 500 mg by mouth 2 times daily (with meals). nabumetone (Relafen) 500 MG tablet Take 750 mg by mouth 2 times daily. nitroglycerin (Nitrostat) 0.[address] 0.4 mg under the tongue every 5 minutes as needed for chest pain. nystatin (Mycostatin) cream pancrelipase, Coj-Disc-Wdji, (Creon) 63479-05170 units capsule Take by mouth 3 times daily (with meals). pregabalin (Lyrica) 150 MG capsule Take 1 capsule (150 mg) by mouth 2 times daily. 30 capsule 0 tamsulosin (Flomax) 0.4 MG 24 hr capsule Take 0.4 mg by mouth daily. Allergies: Allergies Allergen Reactions Penicillins Other reaction(s): Other (See Comments), Unknown unknown Tetracyclines & Related Other reaction(s): Other (See Comments), Unknown unknown REVIEW OF SYSTEMS: Constitutional: Negative for fever, chills, activity change and unexpected weight change. HEENT: Negative for congestion, postnasal drip and sneezing. Eyes: Negative for itching and visual disturbance. Respiratory: Negative for apnea, cough, choking, chest tightness, positive for shortness of breath, negative for wheezing and stridor. Cardiovascular: Negative for chest pain. Gastrointestinal: Negative for nausea, positive for bloody vomiting vomiting, negative for abdominal pain, diarrhea and blood in stool. Genitourinary: Negative for dysuria, frequency and flank pain. Musculoskeletal: Negative for myalgias and joint swelling. Skin: Negative for rash. Neurological: Negative for dizziness, tremors, seizures, syncope, facial asymmetry, speech difficulty, weakness, numbness and headaches. Hematological: Negative for adenopathy. Psychiatric/Behavioral: Negative for suicidal ideas, behavioral problems, self-injury and dysphoric mood. Vitals: BP 131/68 Pulse 88 Temp 36.7 C (98 F) (Oral) Resp 20 Wt 293 lb (133 kg) SpO2 93% BMI 39.74 kg/m BMI Classification: Pulse Ox: SpO2 Av.5 % Min: 88 % Max: 93 % Supplemental O2: O2 Flow Rate (L/min): 2 L/min PHYSICAL EXAM: Physical Exam Constitutional: Appearance: He is ill-appearing. Comments: On Ventimask HENT: Head: Comments: Blood in the mouth Cardiovascular: Rate and Rhythm: Normal rate and regular rhythm. Pulses: Normal pulses. Heart sounds: Normal heart sounds, S1 normal and S2 normal. Pulmonary: Effort: Tachypnea present. Breath sounds: Decreased air movement present. Musculoskeletal: Right lower le+ Pitting Edema present. Left lower le+ Pitting Edema present. DATA: CBC: Recent Labs 07/15/24 1146 WBC 12.8* RBC 3.71* HGB 10.0* HCT 33.6* MCV 90.6 RDW 15.9* PLT 221 BMP: Recent Labs 07/15/24 1146 NA 136 K 5.1 CL 107 CO2 18* BUN 37* CREATININE 1.49* GLUCOSE 305* CALCIUM 8.4* ANIONGAP 11 LIVER PROFILE: Recent Labs 07/15/24 1146 AST 22 ALT 13 BILITOT 0.4 ALKPHOS 94 PROT 6.0* PT/INR: Recent Labs 07/15/24 1158 PROTIME 12.3* INR 1.1 CARDIAC ENZYMES: No results for input(s): "TROPONINI" in the last 72 hours. Procalcitonin: No results found for: "PROCAL" Urine Culture: Results for orders placed or performed during the hospital encounter of 11/29/23 Urine culture Collection Time: 12/03/23 11:23 PM Specimen: Urine, Clean Catch Result Value Ref Range Urine Culture >100,000 CFU/mL Proteus mirabilis (A) Susceptibility Proteus mirabilis - BROTH MICRODILUTION Amoxicillin / Clavulanate <=2 Susceptible ug/ml Ampicillin <=2 Susceptible ug/ml Ampicillin / Sulbactam <=2 Susceptible ug/ml Aztreonam <=1 Susceptible ug/ml Cefazolin <=4 Susceptible ug/ml Cefepime <=1 Susceptible ug/ml Ceftriaxone <=1 Susceptible ug/ml Ciprofloxacin >=4 Resistant ug/ml Gentamicin <=1 Susceptible ug/ml Meropenem <=0.25 Susceptible ug/ml Nitrofurantoin 128 Resistant ug/ml Piperacillin / Tazobactam <=4 Susceptible ug/ml Trimethoprim / Sulfamethoxazole <=20 Susceptible ug/ml COVID-19 PCR: No results for input(s): "COVID19" in the last 72 hours. I reviewed: [x] laboratory results [x] radiographic results At the time of today's encounter. Pt was advised of the results. Data: (LOW: 2x CAT1 or independent historian MOD: 3x CAT1 or 1x CAT3 EXTENSIVE: 3x CAT1 and 1x CAT3) Assessment Discussed management with the ED provider and agree with hospitalization. Acute, acute on chronic, unstable/uncontrolled chronic problems/diagnoses: Acute blood loss anemia due to hematemesis Acute upper GI bleed possibly due to NSAID use (on Nabumetone) Mild hypoxia with respiratory insufficiency Type 2 diabetes mellitus with hyperglycemia and peripheral neuropathy on home insulin Obesity Possible sleep apnea Acute renal insufficiency Stable chronic problems affecting care, new non-acute diagnoses: Past Medical History: Diagnosis Date Acute kidney injury (HCC) 09/11/2015 CAD in [place] artery 08/08/2017 COPD (chronic obstructive pulmonary disease) (HCC) Developmental disorder Diabetes mellitus (HCC) Esophageal reflux Gastritis see EGD on 03/29/2016 GERD (gastroesophageal reflux disease) Hyperlipidemia IBS (irritable bowel syndrome) Mixed Obesity Osteoarthritis Pain management Plantar fasciitis, bilateral Unspecified sleep apnea Urinary retention Plan As a result of the above findings & factors, the following mgmt was pursued: -Admit the patient to medical floor, clear liquid diet and n.p.o. status from midnight, Protonix drip and IV fluids, consulted GI in anticipation of EGD, held nabumetone Serial ferritin levels and iron studies Baseline ABG,, nocturnal pulse ox [facility] and awaiting callback. Informed RN Possible sleep apnea-pulmonology consult - am labs, replace lytes prn - PT/OT/CM/SW - delirium precautions: - DVT prophylaxis: SCD hose Complexity: Risk: Advance Directive: Prior Anticipated Discharge - Date - - Location - - Pending the following - Total time spent (which include face to face and non face to face encounters) : 76 minutes. Toxic drug monitoring/narrow therapeutic index drug monitoring : # Drug name : # Route administered : # Method of monitoring : Extended Emergency Contact Information Primary Emergency Contact: Sreekanth Reyes Relation: Sibling [employer] James Reyes : 1955 Primary Care Physician: Chelle Troncoso MD The patient and/or family/surrogate voluntarily agreed to participate in ACP services. Patient s cognitive capacity: Code Status: [*_] [FULL CODE - Continue all advanced life support: CPR,intubation,invasive procedures] [_] [DNR-CCA - DO NOT do CPR, intubation] [_] [DNR-FINGERPRINT EXPERT - Comfort care only] [_] DNR form [was/was not] signed Summary of discussion: The patient health care POA/ surrogate is the following: . [Condition that instigated the ACP on this DOS, relevant PMH, functional status, goals of care, and whom this was discussed with including names and relationship to the patient, and any relevant advance care documentation discussion] I answered all the patient/family questions that I could within the range and scope of the current medical situation. We discussed the medical conditions, risks, benefits, outcomes, and goals of care at this time for the patient's medical issues at hand in the face of the patient's chronic issues and current presentation. Total time spent:19 minutes were spent discussing the patient's resuscitation status, advance care planning, and end of life care, with patient and/or family/surrogate. Bethany Sandhu MD Division of Hospitalist Medicine [facility] Work Phone: 07-15-2024 Note [facility] 07-15-2024 History and physical note Attending History and Physical Admit Date: 07/15/2024 PCP: Chelle Troncoso MD CHIEF COMPLAINT: I am vomiting blood Reason for Admission: Acute upper GI bleed, hematemesis History Obtained From: Patient and the ED physician HISTORY OF PRESENT ILLNESS: James is a 68 y.o. male with past medical history below who presents with chief complaint dark vomit and coffee-ground emesis 2 times prior to admission to the ER, in the ER he did not have any episode, patient is from [facility] , on review of records he is on nabumetone and aspirin, he is type II diabetic on insulin Was given Protonix IV, patient also dropped his sats and became lethargic, he was placed on Ventimask which improved his sats, denies being on BiPAP or CPAP at the facility, called the nurse at the facility and awaiting callback. In the ER H&H 10/33.6, BUN/creatinine 37/1.49, INR of 1.1 Chest x-ray showed Borderline cardiomegaly. Low lung volumes and pulmonary vascular congestion. No lobar consolidation is seen. Will admit for further evaluation and management. Past Medical History: Past Medical History: Diagnosis Date Acute kidney injury (HCC) 09/11/2015 CAD in [place] artery 08/08/2017 COPD (chronic obstructive pulmonary disease) (HCC) Developmental disorder Diabetes mellitus (HCC) Esophageal reflux Gastritis see EGD on 03/29/2016 GERD (gastroesophageal reflux disease) Hyperlipidemia IBS (irritable bowel syndrome) Mixed Obesity Osteoarthritis Pain management Plantar fasciitis, bilateral Unspecified sleep apnea Urinary retention Past Surgical History: Past Surgical History: Procedure Laterality Date CHOLECYSTECTOMY 03/29/20162010 COLONOSCOPY 05/23/2017 COLONOSCOPY 03/29/2016, repeat in 10 years, Dr. Ness, normal except internal hemorrhoid COLONOSCOPY N/A 07/18/2022 Performed by David Chen MD at [facility] OR CORONARY ARTERY BYPASS GRAFT FOOT SURGERY Left 2015 HEMORRHOID SURGERY 1997 INNER EAR SURGERY tube placement in ears LAYERED WOUND CLOSURE N/A 10/16/2017 sternal wound debridment and closure with wound vac OTHER SURGICAL HISTORY 10/24/2017 I&D sternal wound with flap OTHER SURGICAL HISTORY punching bag removal THYROID SURGERY nodule removal 2010 TONSILLECTOMY (HISTORICAL) UPPER GASTROINTESTINAL ENDOSCOPY 04/01/2016 gastritis, duodentitis WISDOM TOOTH EXTRACTION Social History: Social History Socioeconomic History Marital status: Single Spouse name: Not on file Number of children: Not on file Years of education: Not on file Highest education level: Not on file Occupational History Not on file Tobacco Use Smoking status: Every Day Current packs/day: 1.00 Average packs/day: 1 pack/day for 51.2 years (51.2 ttl pk-yrs) Types: Cigarettes Start date: 04/28/1973 Smokeless tobacco: Never Vaping Use Vaping status: Never Used Substance and Sexual Activity Alcohol use: No Alcohol/week: 0.0 standard drinks of alcohol Drug use: No Comment: caffeine use: decaf coffee sometimes Sexual activity: Not on file Comment: single Other Topics Concern Not on file Social History Narrative Not on file Social Drivers of Health Financial Resource Strain: Not on file Food Insecurity: Not on file Transportation Needs: No Transportation Needs (11/30/2023) PRAPARE - Transportation Lack of Transportation (Medical): No Lack of Transportation (Non-Medical): No Physical Activity: Not on file Stress: Not on file Social Connections: Not on file Intimate Partner Violence: Not At Risk (11/30/2023) Humiliation, Afraid, Rape, and Kick questionnaire Fear of Current or Ex-Partner: No Emotionally Abused: No Physically Abused: No Sexually Abused: No Housing Stability: Low Risk (11/30/2023) Housing Stability Vital Sign Unable to Pay for Housing in the Last Year: No Number of Times Moved in the Last Year: 0 Homeless in the Last Year: No Family History: Family History Problem Relation Name Age of Onset Heart attack Mother 61.00 Heart disease Father Other ([id number]) Brother accident Coronary artery disease Father Diabetes Father Medications Prior to Admission: No current facility-administered medications on file prior to encounter. Current Outpatient Medications on File Prior to Encounter Medication Sig Dispense Refill acetaminophen (Tylenol) 325 MG tablet Take 1,000 mg by mouth 3 times daily. Advair Diskus 250-50 MCG/ACT aerosol powder albuterol (2.5 MG/3ML) 0.083% nebulizer solution Inhale 2.5 mg. albuterol 108 (90 Base) MCG/ACT inhaler Inhale 2 puffs every 6 hours as needed. aspirin 81 MG chewable tablet Chew 81 mg daily. atorvastatin (Lipitor) 80 MG tablet Take 80 mg by mouth in the morning. carvedilol (Coreg) 6.25 MG tablet Take 0.5 tablets (3.125 mg) by mouth 2 times daily (with meals). 30 tablet 3 cholestyramine (Questran) 4 g packet Take 1 packet by mouth in the morning and 1 packet at noon and 1 packet in the evening. Take with meals. cilostazol (Pletal) 50 MG tablet Take 50 mg by mouth 2 times daily. dicyclomine (Bentyl) 10 MG capsule Take 10 mg by mouth 3 times daily. empagliflozin (Jardiance) 25 MG Take 25 mg by mouth daily. ergocalciferol (Vitamin D-2) 1.25 MG (74153 UT) capsule Take 1.25 mg by mouth 1 (one) time per week. Every Monday ezetimibe (Zetia) 10 MG tablet Take 10 mg by mouth Nightly. famotidine (Pepcid) 20 MG tablet Take 20 mg by mouth in the morning. finasteride (Proscar) 5 MG tablet Take 5 mg by mouth in the morning. fluticasone (Flonase) 50 MCG/ACT nasal spray Administer 1 spray into each nostril daily. Shake gently. Before first use, prime pump. After use, clean tip and replace cap. Incruse Ellipta 62.5 MCG/ACT inhalation Inhale 1 puff daily. insulin glargine (Lantus) 100 UNIT/ML injection Inject 48 Units under the skin in the morning. Insulin Lispro (Humalog) 100 UNIT/ML solution injection Inject 16 Units under the skin in the morning and 16 Units at noon and 16 Units in the evening. Menthol, Topical Analgesic, (Biofreeze Cool The Pain) 4 % gel Apply topically every 12 hours as needed (lower back). metFORMIN (Glucophage) 500 MG tablet Take 500 mg by mouth 2 times daily (with meals). nabumetone (Relafen) 500 MG tablet Take 750 mg by mouth 2 times daily. nitroglycerin (Nitrostat) 0.[address] 0.4 mg under the tongue every 5 minutes as needed for chest pain. nystatin (Mycostatin) cream pancrelipase, Lxy-Thng-Copm, (Creon) [id number] units capsule Take by mouth 3 times daily (with meals). pregabalin (Lyrica) 150 MG capsule Take 1 capsule (150 mg) by mouth 2 times daily. 30 capsule 0 tamsulosin (Flomax) 0.4 MG 24 hr capsule Take 0.4 mg by mouth daily. Allergies: Allergies Allergen Reactions Penicillins Other reaction(s): Other (See Comments), Unknown unknown Tetracyclines & Related Other reaction(s): Other (See Comments), Unknown unknown REVIEW OF SYSTEMS: Constitutional: Negative for fever, chills, activity change and unexpected weight change. HEENT: Negative for congestion, postnasal drip and sneezing. Eyes: Negative for itching and visual disturbance. Respiratory: Negative for apnea, cough, choking, chest tightness, positive for shortness of breath, negative for wheezing and stridor. Cardiovascular: Negative for chest pain. Gastrointestinal: Negative for nausea, positive for bloody vomiting vomiting, negative for abdominal pain, diarrhea and blood in stool. Genitourinary: Negative for dysuria, frequency and flank pain. Musculoskeletal: Negative for myalgias and joint swelling. Skin: Negative for rash. Neurological: Negative for dizziness, tremors, seizures, syncope, facial asymmetry, speech difficulty, weakness, numbness and headaches. Hematological: Negative for adenopathy. Psychiatric/Behavioral: Negative for suicidal ideas, behavioral problems, self-injury and dysphoric mood. Vitals: BP 131/68 Pulse 88 Temp 36.7 C (98 F) (Oral) Resp 20 Wt 293 lb (133 kg) SpO2 93% BMI 39.74 kg/m BMI Classification: Pulse Ox: SpO2 Av.5 % Min: 88 % Max: 93 % Supplemental O2: O2 Flow Rate (L/min): 2 L/min PHYSICAL EXAM: Physical Exam Constitutional: Appearance: He is ill-appearing. Comments: On Ventimask HENT: Head: Comments: Blood in the mouth Cardiovascular: Rate and Rhythm: Normal rate and regular rhythm. Pulses: Normal pulses. Heart sounds: Normal heart sounds, S1 normal and S2 normal. Pulmonary: Effort: Tachypnea present. Breath sounds: Decreased air movement present. Musculoskeletal: Right lower le+ Pitting Edema present. Left lower le+ Pitting Edema present. DATA: CBC: Recent Labs 07/15/24 1146 WBC 12.8* RBC 3.71* HGB 10.0* HCT 33.6* MCV 90.6 RDW 15.9* PLT 221 BMP: Recent Labs 07/15/24 1146 NA 136 K 5.1 CL 107 CO2 18* BUN 37* CREATININE 1.49* GLUCOSE 305* CALCIUM 8.4* ANIONGAP 11 LIVER PROFILE: Recent Labs 07/15/24 1146 AST 22 ALT 13 BILITOT 0.4 ALKPHOS 94 PROT 6.0* PT/INR: Recent Labs 07/15/24 1158 PROTIME 12.3* INR 1.1 CARDIAC ENZYMES: No results for input(s): "TROPONINI" in the last 72 hours. Procalcitonin: No results found for: "PROCAL" Urine Culture: Results for orders placed or performed during the hospital encounter of 11/29/23 Urine culture Collection Time: 12/03/23 11:23 PM Specimen: Urine, Clean Catch Result Value Ref Range Urine Culture >100,000 CFU/mL Proteus mirabilis (A) Susceptibility Proteus mirabilis - BROTH MICRODILUTION Amoxicillin / Clavulanate <=2 Susceptible ug/ml Ampicillin <=2 Susceptible ug/ml Ampicillin / Sulbactam <=2 Susceptible ug/ml Aztreonam <=1 Susceptible ug/ml Cefazolin <=4 Susceptible ug/ml Cefepime <=1 Susceptible ug/ml Ceftriaxone <=1 Susceptible ug/ml Ciprofloxacin >=4 Resistant ug/ml Gentamicin <=1 Susceptible ug/ml Meropenem <=0.25 Susceptible ug/ml Nitrofurantoin 128 Resistant ug/ml Piperacillin / Tazobactam <=4 Susceptible ug/ml Trimethoprim / Sulfamethoxazole <=20 Susceptible ug/ml COVID-19 PCR: No results for input(s): "COVID19" in the last 72 hours. I reviewed: [x] laboratory results [x] radiographic results At the time of today's encounter. Pt was advised of the results. Data: (LOW: 2x CAT1 or independent historian MOD: 3x CAT1 or 1x CAT3 EXTENSIVE: 3x CAT1 and 1x CAT3) Assessment Discussed management with the ED provider and agree with hospitalization. Acute, acute on chronic, unstable/uncontrolled chronic problems/diagnoses: Acute blood loss anemia due to hematemesis Acute upper GI bleed possibly due to NSAID use (on Nabumetone) Mild hypoxia with respiratory insufficiency Type 2 diabetes mellitus with hyperglycemia and peripheral neuropathy on home insulin Obesity Possible sleep apnea Acute renal insufficiency Stable chronic problems affecting care, new non-acute diagnoses: Past Medical History: Diagnosis Date Acute kidney injury (HCC) 09/11/2015 CAD in [place] artery 08/08/2017 COPD (chronic obstructive pulmonary disease) (HCC) Developmental disorder Diabetes mellitus (HCC) Esophageal reflux Gastritis see EGD on 03/29/2016 GERD (gastroesophageal reflux disease) Hyperlipidemia IBS (irritable bowel syndrome) Mixed Obesity Osteoarthritis Pain management Plantar fasciitis, bilateral Unspecified sleep apnea Urinary retention Plan As a result of the above findings & factors, the following mgmt was pursued: -Admit the patient to medical floor, clear liquid diet and n.p.o. status from midnight, Protonix drip and IV fluids, consulted GI in anticipation of EGD, held nabumetone Serial ferritin levels and iron studies Baseline ABG,, nocturnal pulse ox called [facility] and awaiting callback. Informed RN Possible sleep apnea-pulmonology consult - am labs, replace lytes prn - PT/OT/CM/SW - delirium precautions: - DVT prophylaxis: SCD hose Complexity: Risk: Advance Directive: Prior Anticipated Discharge - Date - - Location - - Pending the following - Total time spent (which include face to face and non face to face encounters) : 76 minutes. Toxic drug monitoring/narrow therapeutic index drug monitoring : # Drug name : # Route administered : # Method of monitoring : Extended Emergency Contact Information Primary Emergency Contact: Sreekanth Reyes Relation: Sibling [employer] James Reyes : 1955 Primary Care Physician: Chelle Troncoso MD The patient and/or family/surrogate voluntarily agreed to participate in ACP services. Patient s cognitive capacity: Code Status: [*_] [FULL CODE - Continue all advanced life support: CPR,intubation,invasive procedures] [_] [DNR-CCA - DO NOT do CPR, intubation] [_] [DNR-FINGERPRINT EXPERT - Comfort care only] [_] DNR form [was/was not] signed Summary of discussion: The patient health care POA/ surrogate is the following: . [Condition that instigated the ACP on this DOS, relevant PMH, functional status, goals of care, and whom this was discussed with including names and relationship to the patient, and any relevant advance care documentation discussion] I answered all the patient/family questions that I could within the range and scope of the current medical situation. We discussed the medical conditions, risks, benefits, outcomes, and goals of care at this time for the patient's medical issues at hand in the face of the patient's chronic issues and current presentation. Total time spent:19 minutes were spent discussing the patient's resuscitation status, advance care planning, and end of life care, with patient and/or family/surrogate. Bethany Sandhu MD Division of Hospitalist Medicine [facility] documented in this encounter [facility] 07-15-2024 Emergency department Triage note Patient arrives from SNF via ambulance due to coffee ground emesis twice. T [facility] 07-15-2024 Physician Emergency department Note Emergency Department Encounter Pt Name: James Reyes Birthdate 1955 Date of evaluation: 07/15/2024 Provider: Amanuel Parisi MD CHIEF COMPLAINT Chief Complaint Patient presents with Vomiting Blood HISTORY OF PRESENT ILLNESS HPI James Reyes is a 68 y.o. male brought to ED from nursing facility due to concern for bloody vomiting. Patient states that yesterday he vomited and "they" said it look like coffee grounds, and today it look like blood. He has not had any pain in his abdomen or back or chest. He has not had blood in the stool. He has not had the symptoms before. He is not a helpful historian beyond this and has very limited knowledge of his medical conditions. He does not know if he typically uses a nasal cannula or how much vision he is on. According to [facility]itentiary paperwork, he is on baby aspirin and no blood thinners. PMH includes esophageal reflux and gastritis and diabetes Nursing Notes were reviewed. Past Medical History: Diagnosis Date Acute kidney injury (HCC) 09/11/2015 CAD in [place] artery 08/08/2017 COPD (chronic obstructive pulmonary disease) (HCC) Developmental disorder Diabetes mellitus (HCC) Esophageal reflux Gastritis see EGD on 03/29/2016 GERD (gastroesophageal reflux disease) Hyperlipidemia IBS (irritable bowel syndrome) Mixed Obesity Osteoarthritis Pain management Plantar fasciitis, bilateral Unspecified sleep apnea Urinary retention REVIEW OF SYSTEMS Several elements of the ROS reviewed and otherwise acutely negative except as in the HPI. PHYSICAL EXAM ED Triage Vitals [07/15/24 1140] Temp Heart Rate Resp BP 36.7 C (98 F) 90 20 129/61 SpO2 Temp Source Heart Rate Source Patient Position (!) 88 % Oral Monitor Sitting BP Location FiO2 (%) Left arm -- Physical Exam Vitals and nursing note reviewed. Constitutional: General: He is not in acute distress. Appearance: He is well-developed. He is obese. He is not ill-appearing. HENT: Head: Normocephalic and atraumatic. Eyes: Conjunctiva/sclera: Conjunctivae normal. Cardiovascular: Rate and Rhythm: Normal rate and regular rhythm. Heart sounds: No murmur heard. Pulmonary: Effort: Pulmonary effort is normal. No respiratory distress. Breath sounds: Normal breath sounds. Abdominal: Palpations: Abdomen is soft. Tenderness: There is no abdominal tenderness. Musculoskeletal: General: No swelling. Cervical back: Neck supple. Skin: General: Skin is warm and dry. Coloration: Skin is not pale. Neurological: Mental Status: He is alert. Psychiatric: Mood and Affect: Mood normal. EMERGENCY DEPARTMENT COURSE and DIFFERENTIAL DIAGNOSIS/MDM: Differential diagnoses include: Upper GI bleeding that could be variceal bleeding, peptic ulcer disease, malignancy, he could have a clotting disorder or anemia. Per my review of the most recent discharge summary from 06/04/2024 and the last change pulmonology progress note, he was on 4 L nasal cannula prior to discharge. This may be his baseline. Will do a chest x-ray just to be sure there is no evidence of pneumonia or pulmonary edema and we will also check a COVID flu RSV swab. Sources of history: I reviewed the discharge summary from his recent hospitalization, discharge summary from 06/04/2024. At that time he had severe sepsis, COPD, hypoxemic hypercapnic respiratory failure. Also noted history of developmental delay and dilated ascending aorta. Diagnostic tests considered but not performed: CT/CTA abd pel - do not believe this will change management analyst. ED course: Diagnoses as of 07/15/24 1430 Hematemesis ED medications managed: Medications pantoprazole (ProtoNix) 40 mg in sodium chloride (PF) 0.9 % 10 mL injection (40 mg IntraVENous Given 07/15/24 1212) Chronic conditions and social determinants of health affecting care: COPD DISPOSITION/PLAN Admit 07/15/2024 01:32:16 PM Amanuel Parisi MD Emergency Medicine Amanuel Parisi MD 07/16/24 0816 [facility] 06-27-2024 History of Present illness Narrative UROJET 2% LIDOCAINE [facility] [id number] LOT [id number] EXP 05/16/2026 ADMINISTERED BY Nettie Carreon LPN 6 mL in to Urethra PATIENT TOLERATED WELL Images from the original note were not included. OFFICE CYSTOSCOPY REPORT PATIENT NAME: James Reyes DATE OF : 1955 TODAY'S DATE: 06/27/2024 PreOp Dx::HEMATURIA PostOp Dx: Same Operation Cystoscopy Surgeon Pepe Marino MD Anesthesia:lidociane jelly Specimen Complications None; patient tolerated the procedure well. INDICATIONS: James Reyes , is a 68 y.o. male who has HEMATURIA . He presents for cystoscopy. The risks, benefits, complications, treatment options, and expected outcomes were discussed with the patient. The patient concurred with the proposed plan, giving informed consent. PROCEDURE: James Reyes Was brought to the procedure room. Thorough time out was performed and everyone present was in agreement. Patient was placed in the supine position, prepped with Betadine, and draped in the usual sterile fashion. A flexible cystoscope was used to inspect the urethra, prostate and bladder. After thorough inspection the scope was removed. FINDINGS: The Urethra is normal. Prostate: open fossa Bladder: cloudy but no tcc seen . Ureteral orifice(s) Ureteral orifice(s) was/were seen and both were in normal location effluxing clear urine. Impression/Plan James was seen today for procedure, benign prostatic hypertrophy, uti and urinary incontinence. Diagnoses and all orders for this visit: BPH with lower urinary tract symptoms without urinary obstruction - lidocaine (Uro-Jet) 2 % gel Urge incontinence - lidocaine (Uro-Jet) 2 % gel Elevated PSA - PSA, Monitoring ([facility]); Future - PSA, Monitoring ([facility]) Gross hematuria - AMB POC URINALYSIS DIP STICK AUTO W/O MICRO (CRN) Follow up in about 3 months (around 09/27/2024) for psa prior. James Reyes is a 68 y.o. male with Bph Gross hematuria-normal us, cysto no tcc but urine cloudy. Elevated psa Hx uti Urge inc-no obst on cysto likely ngb due to dm Dm Cad copd Plan: Psa prior to his 3 mo follow up Cont flomax 0.8 and proscar for now Re check pvr if low add ui meds. His mobility is issue, may need chaudhari sp or diversion Pepe Marino MD 06/27/24 11:55 AM documented in this encounter [facility] 06-04-2024 Nurse Note Nurse to nurse report given to Sj Cruz. [facility] 06-04-2024 Nurse Note Nurse to nurse report given to Sj Cruz. Attempted to wean patient to 2L NC. Patient sats dropped to 87%. 88-90% on 3L NC. Patient left on 4L NC at this time with continuous pulse ox showing 94%. Instructed to call out with any needs. documented in this encounter [facility] 06-04-2024 Hospital Discharge instructions Tish Diaz RN - 06/04/2024 3:14 PM EST As tolerated Tish Diaz RN - 06/04/2024 3:15 PM EST Healthy diet Tish Diaz RN - 06/03/2024 3:40 PM EST Images from the original note were not included. Continuity of Care Form Patient Name: James Reyes : 1955 Admit date: 05/30/2024 Discharge date: 06/04/2024 Code Status Order: Full Code Advance Directives: N Admitting Physician: Haydee Willis DO PCP: Chelle Troncoso MD Discharging Nurse: Tish Diaz RN Discharging Hospital Unit/Room#: B2-266/B2-266 A Discharging Unit Emergency Contact: Extended Emergency Contact Information Primary Emergency Contact: Sreekanth Reyes Relation: Sibling Past Surgical History: Past Surgical History: Procedure Laterality Date CHOLECYSTECTOMY 03/29/20162010 COLONOSCOPY 05/23/2017 COLONOSCOPY 03/29/2016, repeat in 10 years, Dr. Ness, normal except internal hemorrhoid COLONOSCOPY N/A 07/18/2022 Performed by David Chen MD at [facility] OR CORONARY ARTERY BYPASS GRAFT FOOT SURGERY Left 2014 HEMORRHOID SURGERY 1997 INNER EAR SURGERY tube placement in ears LAYERED WOUND CLOSURE N/A 10/16/2017 sternal wound debridment and closure with wound vac OTHER SURGICAL HISTORY 10/24/2017 I&D sternal wound with flap OTHER SURGICAL HISTORY punching bag removal THYROID SURGERY nodule removal 2010 TONSILLECTOMY (HISTORICAL) UPPER GASTROINTESTINAL ENDOSCOPY 04/01/2016 gastritis, duodentitis WISDOM TOOTH EXTRACTION Immunization History: Immunization History Administered Date(s) Administered Covid-19, Pfizer Bivalent Booster, (Age 12y+), Im, 30 Mcg/0e 03/01/2022 Influenza, High Dose Seasonal, Preservative Free 01/04/2017 Influenza, Unspecified 01/08/2015 Pfizer SARS-CoV-2 Vaccination 04/15/2020, 05/06/2020, 02/02/2021, 09/01/2021 Pneumococcal Conjugate, Unspecified 09/20/2013 Tdap 11/29/2023 Active Problems: Medical Problems Problem List * (Principal) Acute hypercapnic respiratory failure (HCC) IBS (irritable bowel syndrome) Overview Signed 01/27/2022 12:43 PM by Interface, Incoming Problems- [facility] Conversion Mixed Closed head injury, initial encounter Shoulder pain, left Dyslipidemia Knee pain, bilateral Knee osteoarthritis Insulin dependent diabetes mellitus MINERVA (obstructive sleep apnea) Tobacco abuse Esophagitis, reflux Morbid obesity (HCC) Type 2 diabetes, uncontrolled, with neuropathy Wound disruption, post-op, skin, initial encounter Uncontrolled type 2 diabetes mellitus with hyperglycemia, with long-term current use of insulin (HCC) CAD in [place] artery Uncontrolled type 2 diabetes mellitus with complication, with long-term current use of insulin Pseudomonas aeruginosa infection Angina at rest (HCC) Sternal wound dehiscence 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 Enlarged prostate with lower urinary tract symptoms (LUTS) Hypertensive heart disease Overview Signed 01/27/2022 12:43 PM by Interface, Incoming Problems- [facility] Conversion ECHO DONE [facility] 55% EF SHOWS HYPERTENSIVE HEART DISEASE COPD (chronic obstructive pulmonary disease) ([facility]) Overview Signed 01/27/2022 12:43 PM by Interface, Incoming Problems- [facility] Conversion PATIENT IS ON 2 LITER OF OXYGEN AND NOW IS SEEING DR ESTRADA WAS TESTED [facility] AND QUALIFED HOME OXYGEN 07/17/2015 Arthritis of foot, degenerative Hiatal hernia Colitis Chest pain Anemia Colitis, collagenous Gastroesophageal reflux disease without esophagitis Isolation/Infection: No active isolations No active infections Nurse Assessment: Last Vital Signs: BP 129/79 (BP Location: Left arm, Patient Position: Sitting) Pulse 61 Temp (!) 35.6 C (96 F) (Temporal) Resp 18 Ht 1.829 m (6') Wt 135 kg (298 lb 11.6 oz) SpO2 95% BMI 40.51 kg/m Last documented pain score (0-10 scale): Last Weight: Wt Readings from Last 1 Encounters: 06/03/24 135 kg (298 lb 11.6 oz) Mental Status: CRUZ Patient Mental Status: oriented and alert IV Access: CRUZ IV Access: None Nursing Mobility/ADLs: Walking Minimal assistance Transfer Minimal assistance Bathing Minimal assistance Dressing Minimal assistance Toileting minimal assistance Feeding Minimal assistance Chain Person Minimal assistance Med Delivery no Wound Care Documentation and Therapy: Elimination: Continence: Bowel: no Bladder: yes Urinary Catheter: None Colostomy/Ileostomy/Ileal Conduit: Date of Last BM: 06/03/2024 Intake/Output Summary (Last 24 hours) at 06/03/2024 1539 Last data filed at 06/03/2024 1045 Gross per 24 hour Intake 240 ml Output 3150 ml Net -2910 ml I/O last 3 completed shifts: In: 1370 (10.1 mL/kg) [P.O.:1370] Out: 4525 (33.4 mL/kg) [Urine:4525 (0.9 mL/kg/hr)] Weight: 135.5 kg Safety Concerns: at risk for falls Impairments/Disabilities: Developmental delay Nutrition Therapy: Current Nutrition Therapy: Oral diet: carb control 4 carbs/meal (1800kcals/day) Routes of Feeding: oral Liquids: no restrictions Daily Fluid Restriction: no Last Modified Barium Swallow with Video (Video Swallowing Test): not done Treatments at the Time of Hospital Discharge: Respiratory Treatments: Oxygen Therapy: is on oxygen at 4 L/min per nasal cannula. Ventilator: BiPAP 18 over 10 cm H2O with 4 L supplemental O2 bleed at at bedtime. Fullface mask size medium Rehab Therapies: physical therapy Weight Bearing Status/Restrictions: no restriction Other Medical Equipment (for information only, NOT a DME order): none Other Treatments: Patient's personal belongings (please select all that are sent with patient): RN SIGNATURE: Tish Diaz RN CASE MANAGEMENT/SOCIAL WORK SECTION Inpatient Status Date: 05/30/24 Discharging to Facility/ Agency [facility] [address] [place] [address] Dialysis Facility (if applicable) Name: Address: Dialysis Schedule: Phone: Fax: Hand Embroiderer/Box Person signature: ICIAN SECTION Name: James Reyes Prognosis: {Rehab Prognosis:86034} Condition at Discharge: {Patient Condition:59747} Rehab Potential (if transferring to Rehab): {Rehab Prognosis:15280} Recommended Labs or Other Treatments After Discharge: BiPAP 18 over 10 cm H2O with 4 L supplemental O2 bleed at at bedtime. Fullface mask size medium The individual is being admitted to a nursing facility directly from an [facility] or a unit of a hospital that is not operated by or licensed by [facility] under section 5119.14 or 5160-3-15.1 5 The individual requires the level of services provided by a nursing facility for the condition for which he or she was treated in the hospital and, Physician Certification: I certify the above information and transfer of James Reyes is necessary for the continuing treatment of the diagnosis listed and that he requires {CRUZ Level of Care:23698} for {greater less than:61426} 30 days. Update Admission H&P: {CRUZ Changes in H&P:34937} PHYSICIAN SIGNATURE: {E-signature:99483} documented in this encounter [facility] 06-04-2024 Note Formatting of this n ote is different from the original. Images from the original note were not included. Updates DC order entered Confirmed pickup time of 4pm by [employer] [facility] [employer] [place] notified Sreekanth Reyes brother notified [facility] 06-04-2024 Note Formatting of this n ote is different from the original. Images from the original note were not included. Updates DC order entered Confirmed pickup time of 4pm by [facility] [employer] [place] notified Sreekanth Reyes brother notified [facility] 06-04-2024 Miscellaneous Notes Images from the original note were not included. Updates DC order entered Confirmed pickup time of 4pm by [facility] [employer] [place] notified Sreekanth Reyes brother notified Confirmed pickup time of 4pm by transport company [employer] at phone number [phone]. Location of facility drop off is [facility]. Facility notified via Careport, TCC notified on secure chat. The BLS Vehicle you requested for James Mosley in unit/room [facility] on 06/04/2024 is scheduled to arrive at 4:00pm EST! [facility] is handling this ride and you can contact them at . 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 Awaiting time confirmation. Discharge med list transmitted to return back to [facility] via [employer] per TCC request. Problem: Knowledge Deficit Goal: Patient/family/caregiver demonstrates understanding of disease process, treatment plan, medications, and discharge instructions Outcome: Progressing Problem: Potential for Compromised Skin Integrity Goal: Skin Integrity is Maintained or Improved Outcome: Progressing Goal: Nutritional status is improving Outcome: Progressing Problem: Urinary Incontinence Goal: Perineal skin integrity is maintained or improved Outcome: Progressing Problem: Respiratory - Adult Goal: Achieves optimal ventilation and oxygenation Outcome: Progressing Problem: Genitourinary - Adult Goal: Absence of urinary retention Outcome: Progressing Goal: Urinary catheter remains patent Outcome: Progressing Problem: Problem Interventions Goal: Promote nutritional intake Outcome: Progressing Rounds this am Per [facility] communications: patient is LTC and does have bedhold. No auth needed to return - just a time and any updates 96% on RA this am Updates: Attempted to wean patient to 2L NC. Patient sats dropped to 87%. 88-90% on 3L NC. Patient left on 4L NC Problem: Knowledge Deficit Goal: Patient/family/caregiver demonstrates understanding of disease process, treatment plan, medications, and discharge instructions Outcome: Progressing Problem: Potential for Compromised Skin Integrity Goal: Skin Integrity is Maintained or Improved Outcome: Progressing Goal: Nutritional status is improving Outcome: Progressing Problem: Urinary Incontinence Goal: Perineal skin integrity is maintained or improved Outcome: Progressing Flowsheets (Taken 06/03/2024 0326) Perineal skin integrity is maintained or improved: Keep skin clean and dry Note: Condom cath in place and draining. Problem: Respiratory - Adult Goal: Achieves optimal ventilation and oxygenation Outcome: Progressing Problem: Genitourinary - Adult Goal: Absence of urinary retention Outcome: Progressing Goal: Urinary catheter remains patent Outcome: Progressing Problem: Problem Interventions Goal: Promote nutritional intake Outcome: Progressing Pt transferred out to [facility] service from icu. Problem: Knowledge Deficit Goal: Patient/family/caregiver demonstrates understanding of disease process, treatment plan, medications, and discharge instructions Outcome: Progressing Problem: Potential for Compromised Skin Integrity Goal: Skin Integrity is Maintained or Improved Outcome: Progressing Goal: Nutritional status is improving Outcome: Progressing Problem: Urinary Incontinence Goal: Perineal skin integrity is maintained or improved Outcome: Progressing Problem: Respiratory - Adult Goal: Achieves optimal ventilation and oxygenation Outcome: Progressing Problem: Genitourinary - Adult Goal: Absence of urinary retention Outcome: Progressing Goal: Urinary catheter remains patent Outcome: Progressing Problem: Problem Interventions Goal: Promote nutritional intake Outcome: Progressing Problem: Knowledge Deficit Goal: Patient/family/caregiver demonstrates understanding of disease process, treatment plan, medications, and discharge instructions Outcome: Progressing Problem: Potential for Compromised Skin Integrity Goal: Skin Integrity is Maintained or Improved Outcome: Progressing Goal: Nutritional status is improving Outcome: Progressing Problem: Urinary Incontinence Goal: Perineal skin integrity is maintained or improved Outcome: Progressing Problem: Respiratory - Adult Goal: Achieves optimal ventilation and oxygenation Outcome: Progressing Problem: Genitourinary - Adult Goal: Absence of urinary retention Outcome: Progressing Goal: Urinary catheter remains patent Outcome: Progressing Problem: Problem Interventions Goal: Promote nutritional intake Outcome: Progressing Problem: Potential for Compromised Skin Integrity Goal: Nutritional status is improving Outcome: Progressing Problem: Urinary Incontinence Goal: Perineal skin integrity is maintained or improved Outcome: Progressing [facility] request. Await review and response regarding ability to accept. TCC notified. Inpatient status from [facility] with acute hypercapnic resp failure. Admitted to ICU for NIV. Currently requiring high flow oxygen 60% fio2 and 40 liters. Receiving iv antibiotics, iv steroids, scheduled aerosols, and ss insulin coverage. 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 Anticipated discharge plan is to return to [facility] when medically stable. Problem: Knowledge Deficit Goal: Patient/family/caregiver demonstrates understanding of disease process, treatment plan, medications, and discharge instructions Outcome: Progressing Problem: Potential for Compromised Skin Integrity Goal: Skin Integrity is Maintained or Improved Outcome: Progressing Goal: Nutritional status is improving Outcome: Progressing Problem: Urinary Incontinence Goal: Perineal skin integrity is maintained or improved Outcome: Progressing Problem: Respiratory - Adult Goal: Achieves optimal ventilation and oxygenation Outcome: Progressing Problem: Genitourinary - Adult Goal: Absence of urinary retention Outcome: Progressing Goal: Urinary catheter remains patent Outcome: Progressing documented in this encounter [facility] 06-04-2024 Note Formatting of this n ote might be different from the original. Confirmed pickup time of 4pm by transport [employer] at phone number [phone]. Location of facility drop off is [facility]. Facility notified via PRAFUL Davis notified on secure chat. The [employer] Vehicle you requested for James Mosley in unit/room [place] [id number] on 06/04/2024 is scheduled to arrive at 4:00pm EST! [employer] is handling this ride and you can contact them at . [facility] 06-04-2024 Note Formatting of this n ote might be different from the original. Confirmed pickup time of 4pm by transport [employer] at phone number [phone]. Location of facility drop off is [facility]. Facility notified via [employer] notified on secure chat. The [employer] Vehicle you requested for James Mosley in unit/room [facility] B2-250 on 06/04/2024 is scheduled to arrive at 4:00pm EST! [facility] [employer] is handling this ride and you can contact them at . [employer] 06-04-2024 Note Formatting of this n ote might be different from the original. 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 Awaiting time confirmation. [employer] 06-04-2024 Note Formatting of this n ote might be different from the original. 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 Awaiting time confirmation. [employer] 06-04-2024 Note Formatting of this n ote might be different from the original. Discharge med list transmitted to return back to [facility] via [facility] per [facility] request. [employer] 06-04-2024 Note Formatting of this n ote might be different from the original. Discharge med list transmitted to return back to [facility] via [facility] per [facility] request. [employer] 06-04-2024 Note [employer] [facility] 06-04-2024 History of Present illness Narrative Images from the original note were not included. [facility], Pulmonary Critical Care and Sleep Medicine Patient - James Reyes, Age - 68 y.o. - 1955 Room Number - B2-250/B2-250 B Consulting - Manjinder Sanchez MD Primary Care Physician - Chelle Troncoso MD [facility] # - [id number] Date of Admission - 05/30/2024 8:35 AM Hospital Day - 5 Subjective/Events Past 24 hours/ROS Following for resp failure Patient awake sitting up in bed watching television. On 4 L nasal cannula. Overall states his breathing is better today. Using PAP at night and feels as though he is starting to tolerate better. No new overnight concerns Objective Vitals height is 6' (1.829 m) and weight is 293 lb 14 oz (133 kg). His temporal temperature is 35.8 C (96.5 F) (abnormal). His blood pressure is 144/71 and his pulse is 52. His respiration is 18 and oxygen saturation is 98%. O2 Flow Rate (L/min): 4 L/min I/O Intake/Output Summary (Last 24 hours) at 06/04/2024 1154 Last data filed at 06/04/2024 1005 Gross per 24 hour Intake -- Output 3200 ml Net -3200 ml Wt Readings from Last 3 Encounters: 06/04/24 293 lb 14 oz (133 kg) 05/13/24 300 lb (136 kg) 03/08/24 284 lb (129 kg) Exam General Appearance Awake, alert, oriented, in no acute distress HEENT - normocephalic, atraumatic, sclarea is anicteric, conjunctiva is pink, nasal mucosa is normal, no congestion, external ears are intact. Neck - Supple, trachea midline Lymph nodes- no cervical lymphadenopathy Lungs Normal effort, poor air entry bilaterally, no obvious wheezing or crackles, diminished breath sounds at the bases. Cardiovascular - Heart sounds are normal. Regular rate and rhythm Abdomen - Soft, nontender Neurologic - There are no focal motor deficits grossly Skin - No bruising or bleeding, good turgor, normal warmth Extremities - No clubbing, cyanosis, edema Meds aspirin, 81 mg, Oral, Daily carvedilol, 6.25 mg, Oral, BID WC enoxaparin, 30 mg, SubCUTAneous, 2 times per day guaiFENesin, 600 mg, Oral, BID insulin glargine, 44 Units, SubCUTAneous, Nightly insulin lispro, 0-12 Units, SubCUTAneous, TID WC insulin lispro, 16 Units, SubCUTAneous, TID WC ipratropium-albuterol, 3 mL, Nebulization, TID pancrelipase (Usr-Bavd-Bvuv), 1 capsule, Oral, TID WC pantoprazole, 40 mg, Oral, q AM phosphorus, 250 mg, Oral, BID polyethylene glycol (PEG) 3350, 17 g, Oral, Daily predniSONE, 40 mg, Oral, Daily pregabalin, 150 mg, Oral, BID tamsulosin, 0.4 mg, Oral, Daily PRN medications: acetaminophen, dextrose, dextrose, glucagon (rDNA), glucose, naloxone, ondansetron ODT OR ondansetron, senna-docusate sodium Labs CBC Results from last 7 days Lab Units 06/04/24 0132 WBC AUTO 10*3/uL 6.7 HEMOGLOBIN g/dL 9.9* HEMATOCRIT % 32.4* MCV fL 92.8 PLATELETS 10*3/uL 221 BMP: Results from last 7 days Lab Units 06/04/24 0132 SODIUM mmol/L 140 POTASSIUM mmol/L 4.1 CHLORIDE mmol/L 105 CO2 mmol/L 28 BUN mg/dL 30* CREATININE mg/dL 0.86 GLUCOSE mg/dL 200* MAGNESIUM mg/dL 2.1 PHOSPHORUS mg/dL 2.7 Cultures Personally reviewed, all negative Radiology CXR 05/31/2024 IMPRESSION: 1. Lines/Tubes/Devices/Hardware: Leads noted. Please confirm position and function of any catheters or attempted catheters clinically. 2. Lungs: Persistent infiltrate densities. No interval major volume loss.. Consider follow-up with PA and lateral chest for persistent symptoms. 3. Pleura: No significant effusion. No significant pneumothorax. 4. Heart and mediastinum: No convincing acute process. 5. Upper abdomen: No acute process seen. 6. Thorax:No acute bony process Active Hospital Problem List Principal Problem: Acute hypercapnic respiratory failure (HCC) Assessment 1 acute hypercapnic (and probably chronic) hypoxic respiratory failure 2 AECOPD, current smoker 3 MINERVA 4 likely OHS 5 morbid obesity, BMI 40 Plan Wean FiO2 as patient tolerates. Maintain SpO2 greater equal to 92%. On 4 L nasal cannula this morning Encourage use of BiPAP at at bedtime would benefit from outpatient PSG. As patient going to nursing facility will place orders on CRUZ for him to use BiPAP while at facility. Prednisone taper ordered Continue DuoNebs. Resume home Advair and Spiriva at discharge Okay to discharge to SNF from pulmonary standpoint. Hospital follow-up scheduled on 06/19/2024 with Viki Ball APRN Case discussed with nurse and patient. Questions and concerns addressed. Images from the original note were not included. PHYSICAL THERAPY [facility] Treatment Note Name/MRN: James Reyes ([id number]) Date of : 1955 Age: 68 y.o. Room/Bed: B2-250/B2250 B Visit #: 1 out of 5 visits Discharge Recommendation: Half-Way Facility Equipment Needed: (TBD by facility) Prior Level of Function Prior Level of ADL Function: (Pt reports indendent, but unsure true PLOF.) Prior Level of Mobility: (Pt reports indendent with rollator, but unsure true PLOF.); Device: Rollator and Wheelchair - manual Prior Level of Transfers: (Pt reports indendent, but unsure true PLOF.) Assessment Pt demonstrated improvement in functional mobility with less assist needed to complete bed mobility and transfers. Adjusted bed height to assist pt per what he reports doing at facility. Pt demonstrates need for continued assist for stability and safety at this time. Pt was able to perform exercises with questionable effort performed for benefit. Pt will benefit from continued attempts to improve functional mobility and strength to return to prior level of function as recommended. Subjective Pt agreeable to therapy. Observation Nasal canula and catheter intact as well as pulse ox. Vitals HR 52 bpm and SpO2 remained between 93 - 98% during session Pain: Pt denies any current pain. Medical Precautions: No active isolations Proper PPE donned/doffed in accordance with facility standards. Fall Risk: Sr Fall Risk Score: 25 (Low Risk) Precautions/Restrictions: Fall Precautions Overall Cognitive Status: Exceptions - Following commands: follows one step commands with increased time and follows one step commands with repetition - Attention span: attends with cues to redirect - Safety judgement: decreased awareness of need for assistance and decreased awareness of need for safety - Problem solving: assistance required to identify errors made and assistance required to correct errors made - Insights: decreased awareness of deficits Overall Orientation Status: Oriented to Place and Oriented to Person Family/Caregiver Present: none Objective Bed Mobility Supine to sit: Mod Assist Sit to supine: Mod Assist Pt demonstrates ability to initiate transition with HOB elevated and usage of bed rails to assist with transition. MOD A needed to elevate trunk to sitting position. Pt requires usage of bed rail to control trunk when returning to supine with assist to elevate LE's onto bed. Transfers/Mobility Sit to stand: Min Assist Stand to sit: Min Assist Pt cued for hand placement with tendency to perform transition with one hand on walker and one on bed with height of bed elevated secondary to pt reporting he does this at home. Pt required support to stabilize pt as he completed transition to stand with FWW for support. Pt was able to maintain stance while toilet hygiene completed and bedding changed with light MIN A for safety and on second attempt, pt was able to side step to the L with FWW and MIN A for balance. Pt controls lowering with MIN A for eccentric control and poor hand placement. Device(s) used: Front wheeled walker Balance During Session: Posture: fair Sitting - Static: SBA Sitting - Dynamic: SBA Standing - Static: Min Assist Standing - Dynamic: Min Assist Exercises Exercises Quad Sets: 1 set / 10 reps in supine B LE with weakening contraction with repetitions Heelslides: 1 set / 10 reps in supine B LE with assist to decrease friction while performing individually Gluteal Sets: 1 set / 7 reps in supine Hip Abduction: 1 set / 10 reps in supine B LE with assist to decrease friction while performing individually Knee Short Arc Quad: 1 set / 10 reps in supine B LE individually with assist to decrease pace for benefit and to work on increase control Ankle Pumps: 1 set / 10 reps in supine B LE with limited motion Comments: Exercises performed to improve strength and activity tolerance for mobility with questionable full participation from pt. Pt demonstrates difficulty with maintaining alignment of LE's while performing Plan Continue acute PT per plan of care. Safety/Education Safety Safety Devices in place: All fall risk precautions in place, call light within reach, left in bed, gait belt, patient at risk for falls, and nurse notified Restraints: No Education Education Given To: patient Education Provided: PT Role, PT Goals, Plan of Care, Home Exercise Program, Transfer Training, Equipment, and Discharge Recommendations Education Method: Verbal, Demonstration, and Teach Back Barriers to Learning: Cognition Education Outcome: Continued Education Needed Outcome Measures AM-PAC AM-PAC Inpatient Mobility Raw Score (No Stairs) : 8 Goals Patient Stated Goal: None stated Encounter Problems Encounter Problems (Active) Balance Patient will maintain static standing balance for 1 minutes with CGA in order to demonstrate decreased risk of falling. (Progressing) Start: 06/01/24 Expected End: 06/08/24 Exercise Patient will complete lower extremity exercises for 1-2 sets / 5-10 reps in order to improve strength and activity tolerance for mobility. (Progressing) Start: 06/01/24 Expected End: 06/08/24 Mobility Patient will ambulate 5 feet with min assist and rolling walker in order to improve safety and independence with mobility. (Not Addressed) Start: 06/01/24 Expected End: 06/08/24 Patient will propel the wheelchair for 50 ft and modified independence in order to improve safety and independence with functional mobility. (Not Addressed) Start: 06/01/24 Expected End: 06/08/24 Transfers Patient will perform bed mobility with min assist in order to improve independence and prepare for out of bed mobility. (Progressing) Start: 06/01/24 Expected End: 06/08/24 Patient will complete sit to stand transfer with mod assist to rolling walker in order to improve safety and prepare for out of bed mobility. (Progressing) Start: 06/01/24 Expected End: 06/08/24 Therapy Time Individual Co-treatment Time In 1040 Time Out 1115 Minutes 35 Timed Code Treatment Minutes: 25 Minutes (ther ex and ther act) Billie Epstein PTA Cosigned by Arabella Shen, PT at 06/04/2024 1:14 PM EST Patient currently off unit, will attempt smoking cessation counseling at a later time. Images from the original note were not included. [facility], Pulmonary Critical Care and Sleep Medicine Patient - James Reyes, Age - 68 y.o. - 1955 Room Number - B2-266/B2-266 A Consulting - Manjinder Sanchez MD Primary Care Physician - [id number] Date of Admission - 05/30/2024 8:35 AM Hospital Day - 4 Subjective/Events Past 24 hours/ROS Following for resp failure Awake, says his breathing is better, still some cough and sneezing Says he doesn't currently wear home O2, "I weaned myself off of it" Knows he has MINERVA, says he can't tolerate the mask Still smoking Objective Vitals height is 6' (1.829 m) and weight is 298 lb 11.6 oz (135 kg). His temporal temperature is 30.4 C (86.7 F) (abnormal). His blood pressure is 132/65 and his pulse is 55. His respiration is 18 and oxygen saturation is 94%. O2 Flow Rate (L/min): 4 L/min I/O Intake/Output Summary (Last 24 hours) at 06/03/2024 1453 Last data filed at 06/03/2024 1045 Gross per 24 hour Intake 240 ml Output 3150 ml Net -2910 ml Wt Readings from Last 3 Encounters: 06/03/24 298 lb 11.6 oz (135 kg) 05/13/24 300 lb (136 kg) 03/08/24 284 lb (129 kg) Exam General Appearance Awake, alert, oriented, in no acute distress HEENT - normocephalic, atraumatic, sclarea is anicteric, conjunctiva is pink, nasal mucosa is normal, no congestion, external ears are intact. Neck - Supple, trachea midline Lymph nodes- no cervical lymphadenopathy Lungs Normal effort, poor air entry bilaterally, no obvious wheezing or crackles, diminished breath sounds at the bases. Cardiovascular - Heart sounds are normal. Regular rate and rhythm Abdomen - Soft, nontender Neurologic - There are no focal motor deficits grossly Skin - No bruising or bleeding, good turgor, normal warmth Extremities - No clubbing, cyanosis, edema Meds aspirin, 81 mg, Oral, Daily carvedilol, 6.25 mg, Oral, BID WC enoxaparin, 30 mg, SubCUTAneous, 2 times per day guaiFENesin, 600 mg, Oral, BID insulin glargine, 44 Units, SubCUTAneous, Nightly insulin lispro, 0-12 Units, SubCUTAneous, TID WC insulin lispro, 16 Units, SubCUTAneous, TID WC ipratropium-albuterol, 3 mL, Nebulization, TID mupirocin, 1 Application, Nasal, BID pancrelipase (Ozz-Jnxo-Xraa), 1 capsule, Oral, TID WC pantoprazole, 40 mg, Oral, q AM phosphorus, 250 mg, Oral, BID polyethylene glycol (PEG) 3350, 17 g, Oral, Daily predniSONE, 40 mg, Oral, Daily pregabalin, 150 mg, Oral, BID tamsulosin, 0.4 mg, Oral, Daily PRN medications: acetaminophen, dextrose, dextrose, glucagon (rDNA), glucose, naloxone, ondansetron ODT OR ondansetron, senna-docusate sodium Labs CBC Results from last 7 days Lab Units 06/03/24 0318 WBC AUTO 10*3/uL 6.1 HEMOGLOBIN g/dL 9.2* HEMATOCRIT % 30.6* MCV fL 95.0 PLATELETS 10*3/uL 197 BMP: Results from last 7 days Lab Units 06/03/24 0318 SODIUM mmol/L 137 POTASSIUM mmol/L 4.3 CHLORIDE mmol/L 105 CO2 mmol/L 27 BUN mg/dL 37* CREATININE mg/dL 1.03 GLUCOSE mg/dL 203* MAGNESIUM mg/dL 2.1 PHOSPHORUS mg/dL 2.0* Cultures Personally reviewed, all negative Radiology CXR Personally reviewed (See actual reports for details) Active Hospital Problem List Principal Problem: Acute hypercapnic respiratory failure (HCC) Assessment and Plan 1 acute hypercapnic (and probably chronic) hypoxic respiratory failure 2 AECOPD, current smoker 3 MINERVA 4 likely OHS 5 morbid obesity, BMI 40 Plan: 1 wean O2, will probably need home O2 2 nocturnal BiPAP, needs outpatient PSG 3 slow prednisone taper 4 on Advair and Spiriva at home, start Dulera and Spiriva here 5 aerosols 6 Mucinex 7 Lovenox for DVT prophylaxis 8 plan is ECF where he is already a resident Case discussed with nurse and patient. Questions and concerns addressed. Hospitalist Progress Note 06/03/2024 Subjective: Admit Date: 05/30/2024 PCP: Chelle Troncoso MD Room#: -266/Banner266 A BRIEF HOSPITAL COURSE: 05/30Micdanika Reyes is a 68 y.o. male who presents to the emergency department from a fpc facility for evaluation of nausea, vomiting, shortness of breath and concerns for possible PE. Patient does not move around much and they noticed that he was short of breath, arrives to the ED via EMS and hypoxic on arrival. He was placed on 4 L nasal cannula and remained 88%, he was placed on a nonrebreather and given a breathing treatment and route. Patient requiring high flow oxygen arrival to the ED. He is somnolent. He is not on oxygen at baseline. ICU for severe sepsis , acute respiratory failure and respiratory acidosis 06/01 325 transferred out of ICU to our medical service Interval History: No overnight issues.He has no complaints, denies shortness of breath but is not moving around much. Case and plan discussed with patient and bedside nurse. All questions answered. Adult diet Regular; 4 carb choices (60 gm/meal) 24HR INTAKE/OUTPUT: Intake/Output Summary (Last 24 hours) at 06/03/2024 0952 Last data filed at 06/03/2024 0935 Gross per 24 hour Intake 220 ml Output 3625 ml Net -3405 ml Past Medical History: Past Medical History: Diagnosis Date Acute kidney injury (HCC) 09/11/2015 CAD in [place] artery 08/08/2017 COPD (chronic obstructive pulmonary disease) (HCC) Developmental disorder Diabetes mellitus (HCC) Esophageal reflux Gastritis see EGD on 03/29/2016 GERD (gastroesophageal reflux disease) Hyperlipidemia IBS (irritable bowel syndrome) Mixed Obesity Osteoarthritis Pain management Plantar fasciitis, bilateral Unspecified sleep apnea Urinary retention LABS: CBC: Recent Labs 06/01/24 0410 06/02/24 0154 06/03/24 0318 WBC 9.1 7.5 6.1 RBC 3.16* 3.11* 3.22* HGB 9.2* 8.9* 9.2* HCT 30.7* 29.6* 30.6* MCV 97.2 95.2 95.0 RDW 15.4* 15.1* 15.1* PLT 205 206 197 BMP: Recent Labs 06/01/24 0410 06/02/24 0154 06/03/248 NA 133* 136 137 K 4.8 4.6 4.3 CL 105 106 105 CO2 22* 24 27 BUN 62* 50* 37* CREATININE 1.43* 1.20 1.03 GLUCOSE 253* 224* 203* CALCIUM 8.5* 8.3* 8.3* ANIONGAP 6 6 5 LIVER PROFILE: Recent Labs 06/03/24317 AST 14 ALT 10 BILITOT 0.2 ALKPHOS 56 PROT 5.1* PT/INR: No results for input(s): "PROTIME", "INR" in the last 72 hours. CARDIAC ENZYMES: No results for input(s): "TROPONINI" in the last 72 hours. Procalcitonin: No results found for: "PROCAL" COVID-19 PCR: No results for input(s): "COVID19" in the last 72 hours. Objective: Vitals: BP 145/68 (BP Location: Right arm, Patient Position: Lying) Pulse 56 Temp (!) 35.1 C (95.1 F) (Temporal) Resp 18 Ht 6' (1.829 m) Wt 298 lb 11.6 oz (135 kg) SpO2 96% BMI 40.51 kg/m Pulse Ox: SpO2 Av.4 % Min: 91 % Max: 99 % Supplemental O2: O2 Flow Rate (L/min): 4 L/min Physical Exam Vitals and nursing note reviewed. HENT: Head: Normocephalic and atraumatic. Nose: Nose normal. Mouth/Throat: Mouth: Mucous membranes are moist. Eyes: Extraocular Movements: Extraocular movements intact. Conjunctiva/sclera: Conjunctivae normal. Pupils: Pupils are equal, round, and reactive to light. Cardiovascular: Rate and Rhythm: Normal rate and regular rhythm. Pulmonary: Effort: Pulmonary effort is normal. Comments: Diminished Abdominal: General: Bowel sounds are normal. Palpations: Abdomen is soft. Musculoskeletal: General: Normal range of motion. Cervical back: Normal range of motion and neck supple. Skin: General: Skin is warm and dry. Neurological: General: No focal deficit present. Mental Status: He is oriented to person, place, and time. Psychiatric: Mood and Affect: Mood normal. Behavior: Behavior normal. Thought Content: Thought content normal. Medications: Scheduled PRN aspirin, 81 mg, Oral, Daily carvedilol, 6.25 mg, Oral, BID WC enoxaparin, 30 mg, SubCUTAneous, 2 times per day guaiFENesin, 600 mg, Oral, BID insulin glargine, 44 Units, SubCUTAneous, Nightly insulin lispro, 0-12 Units, SubCUTAneous, TID WC insulin lispro, 16 Units, SubCUTAneous, TID WC ipratropium-albuterol, 3 mL, Nebulization, TID mupirocin, 1 Application, Nasal, BID pancrelipase (Cla-Fxlh-Rdxw), 1 capsule, Oral, TID WC pantoprazole, 40 mg, Oral, q AM polyethylene glycol (PEG) 3350, 17 g, Oral, Daily predniSONE, 40 mg, Oral, Daily pregabalin, 150 mg, Oral, BID tamsulosin, 0.4 mg, Oral, Daily PRN medications: acetaminophen, dextrose, dextrose, glucagon (rDNA), glucose, naloxone, ondansetron ODT OR ondansetron, senna-docusate sodium Continuous Assessment Data: (CAT1) Reviewed 2 notes from different specialty or health system (each=1). (CAT1) Reviewed 2 labs/studies previously ordered by me not previously counted (each=1, panels count as 1). (CAT1) Ordered 2 new labs and/or studies (each=1, panels count as 1). (LOW: 2x CAT1 or independent historian MOD: 3x CAT1 or 1x CAT3 EXTENSIVE: 3x CAT1 and 1x CAT3) Acute, acute on chronic, unstable/uncontrolled chronic problems/diagnoses: Severe sepsis - improved, leukocytosis resolved , PNA workup has been negative , blood cultures neg x 48 hours AE COPD- Acute hypoxemic hypercapnic respiratory failure - now on nasal cannula at 4 liters SATs 91-94, titrate as tri , pulmonology following Respiratory acidosis - resolved T2DM with hyperglycemia - monitor BS, continue prandial insulin and sliding scale Normocytic anemia - monitor with daily CBC Hypophosphatemia - placed on oral supplement will continue to monitor Stable chronic problems affecting care, new non-acute diagnoses: Hx developmental delay Hx of dilated ascending aorta 4.0 cm GERD Class 3 morbid obesity - BMI 40 HTN CAD- s/p CABG Plan As a result of the above findings & factors, the following mgmt was pursued: - patient stable , respiratory status improved, pulmonology following - am labs, replace lytes prn - PT/OT/CM/SW - delirium precautions: increase activity and limit nighttime disturbances - DVT prophylaxis: enoxaparin and encourage ambulation Complexity: Acute illness with systemic symptoms (MOD). Risk: Prescription drug/IVF/colloid was initiated, discontinued, adjusted; or reviewed with decision to maintain current orders (MOD). Low risk diagnostic testing or treatment (LOW). Advance Directive: Full Code Anticipated Discharge - Date - likely over the next 24-48 hours - Location - Residential Care Facility (Non-Skilled) - Pending the following - pulmonology clearance Total time spent (which include face to face and non face to face encounters) : minutes Toxic drug monitoring/narrow therapeutic index drug monitoring : # Drug name : # Route administered : # Method of monitoring : Extended Emergency Contact Information Primary Emergency Contact: Sreekanth Reyes Relation: Sibling Krissy AlondraPATRICIA Taveras CNP Division of Hospitalist Medicine [facility] Respiratory Care Department Progress Note As part of the Respiratory Assessment Program (RAP), the following Respiratory Therapist evaluation has been completed, including a chart review and clinical/physical assessment. Respiratory Therapist RAP Evaluation Guideline Points 0 1 2 3 4 Points Strongly Consider History Factor No Pulmonary conditions Stable Pulmonary condition(s) Surgery or Intervention that may impact Pulmonary system (at risk) Surgery or Intervention that is impacting Pulmonary system Active Exacerbation of Pulmonary Condition 1 Respiratory Pattern Regular, RR= 12-18 SHIRLEY or Increased RR= 19-24 Irregular, or RR= 25-30 SOB, talk in short sentences, or RR= 31-35 Severe SOB, accessory muscle use, one word answers, or RR>35 1 Aerosol Med(s), High Flow O2 Breath Sounds Clear Diminished in 1 lobe Diminished in <= 2 lobes Adventitious breath sounds Coarse crackles, Wheezes, or Diminished in >2 lobes 2 Aerosol Med(s), Bronchial Hygiene, Hyperinflation Cough & Sputum Strong cough, no secretion retention or production Weak cough, no secretion retention or production Weak cough, w/ production (less often than Q2hr), or secretion retention No cough, w/ secretion retention or production (less often than Q2hr) Significant secretion production (more often than Q2hr) or mucus plug 0 Aerosol Med(s), Bronchial Hygiene, Hyperinflation Level of Activity Ambulatory Ambulatory with Assist Up in chair or edge of bed (dangle) Non-ambulatory, bedridden with active ROM Completely paralyzed or without active ROM 1 Triage 5 0-2 Triage 4 3-5 Triage 3 6-10 Triage 2 11-14 Triage 1 >=15 Total 5 Triage Score = 4 TRIAGE SCORING - SUGGESTED FREQUENCIES Aerosol Therapy Bronchial Hygiene Hyperinflation Triage Score Q4h & PRN 1 Q4hWA (QID) & PRN 2 TID & PRN 3 BID & PRN 4 PRN 5 Therapy(s) Indicated Yes/No Aerosol Medication yes RT to enter/modify frequency of treatment order in EMR/EHR to match this RAP evaluation. Based on this RAP evaluation the following therapy is being initiated: douneb At the following frequency: TID Comments: Thank you for involving [facility] in the care of this patient, Hospitalist Progress Note 06/02/2024 Subjective: Admit Date: 05/30/2024 PCP: Chelle Troncoso MD Room#: B2-266/B2-266 A BRIEF HOSPITAL COURSE: 05/30Martitadanika Reyes is a 68 y.o. male who presents to the emergency department from a fpc facility for evaluation of nausea, vomiting, shortness of breath and concerns for possible PE. Patient does not move around much and they noticed that he was short of breath, arrives to the ED via EMS and hypoxic on arrival. He was placed on 4 L nasal cannula and remained 88%, he was placed on a nonrebreather and given a breathing treatment and route. Patient requiring high flow oxygen arrival to the ED. He is somnolent. He is not on oxygen at baseline. ICU for severe sepsis , acute respiratory failure and respiratory acidosis 06/01 325 transferred out of ICU to our medical service Interval History: No overnight issues. Case and plan discussed with patient and bedside nurse. All questions answered. Adult diet Regular; 4 carb choices (60 gm/meal) 24HR INTAKE/OUTPUT: Intake/Output Summary (Last 24 hours) at 06/02/2024 0901 Last data filed at 06/02/2024 0847 Gross per 24 hour Intake 1550 ml Output 3300 ml Net -1750 ml Past Medical History: Past Medical History: Diagnosis Date Acute kidney injury (HCC) 09/11/2015 CAD in [place] artery 08/08/2017 COPD (chronic obstructive pulmonary disease) (HCC) Developmental disorder Diabetes mellitus (HCC) Esophageal reflux Gastritis see EGD on 03/29/2016 GERD (gastroesophageal reflux disease) Hyperlipidemia IBS (irritable bowel syndrome) Mixed Obesity Osteoarthritis Pain management Plantar fasciitis, bilateral Unspecified sleep apnea Urinary retention LABS: CBC: Recent Labs 05/31/2440406/01/24 0410 06/02/24 0154 WBC 11.4* 9.1 7.5 RBC 3.41* 3.16* 3.11* HGB 9.8* 9.2* 8.9* HCT 33.8* 30.7* 29.6* MCV 99.1* 97.2 95.2 RDW 15.3* 15.4* 15.1* PLT 194 205 206 BMP: Recent Labs 05/31/2440406/01/24 0410 06/02/24 0154 NA 139 133* 136 K 4.8 4.8 4.6 CL 111* 105 106 CO2 20* 22* 24 BUN 58* 62* 50* CREATININE 1.58* 1.43* 1.20 GLUCOSE 194* 253* 224* CALCIUM 8.1* 8.5* 8.3* ANIONGAP 8 6 6 LIVER PROFILE: Recent Labs 05/31/24404 AST 22 ALT 16 BILITOT 0.2 ALKPHOS 69 PROT 5.4* PT/INR: No results for input(s): "PROTIME", "INR" in the last 72 hours. CARDIAC ENZYMES: No results for input(s): "TROPONINI" in the last 72 hours. Procalcitonin: Lab Results Component Value Date PROCAL 2.10 (H) 05/31/2024 COVID-19 PCR: No results for input(s): "COVID19" in the last 72 hours. Objective: Vitals: BP 127/62 (BP Location: Right arm, Patient Position: Lying) Pulse 60 Temp 36.1 C (97 F) (Temporal) Resp 17 Ht 6' (1.829 m) Wt 296 lb 11.2 oz (135 kg) SpO2 95% BMI 40.24 kg/m Pulse Ox: SpO2 Av.3 % Min: 88 % Max: 100 % Supplemental O2: O2 Flow Rate (L/min): 4 L/min Physical Exam Vitals and nursing note reviewed. Constitutional: Appearance: He is obese. He is ill-appearing. HENT: Head: Normocephalic and atraumatic. Nose: Nose normal. Mouth/Throat: Mouth: Mucous membranes are moist. Eyes: Extraocular Movements: Extraocular movements intact. Conjunctiva/sclera: Conjunctivae normal. Pupils: Pupils are equal, round, and reactive to light. Cardiovascular: Rate and Rhythm: Normal rate and regular rhythm. Pulmonary: Effort: Pulmonary effort is normal. Comments: Diminished with mild crackles in bases Abdominal: General: Bowel sounds are normal. Palpations: Abdomen is soft. Musculoskeletal: General: Normal range of motion. Cervical back: Normal range of motion and neck supple. Skin: General: Skin is warm and dry. Neurological: General: No focal deficit present. Mental Status: He is alert and oriented to person, place, and time. Psychiatric: Mood and Affect: Mood normal. Behavior: Behavior normal. Thought Content: Thought content normal. Medications: Scheduled PRN aspirin, 81 mg, Oral, Daily carvedilol, 6.25 mg, Oral, BID WC enoxaparin, 30 mg, SubCUTAneous, 2 times per day guaiFENesin, 600 mg, Oral, BID insulin glargine, 44 Units, SubCUTAneous, Nightly insulin lispro, 0-12 Units, SubCUTAneous, TID WC insulin lispro, 16 Units, SubCUTAneous, TID WC ipratropium-albuterol, 3 mL, Nebulization, 4x daily mupirocin, 1 Application, Nasal, BID pancrelipase (Pmf-Mxoe-Gxix), 1 capsule, Oral, TID WC pantoprazole, 40 mg, Oral, q AM polyethylene glycol (PEG) 3350, 17 g, Oral, Daily predniSONE, 40 mg, Oral, Daily pregabalin, 150 mg, Oral, BID tamsulosin, 0.4 mg, Oral, Daily PRN medications: acetaminophen, dextrose, dextrose, glucagon (rDNA), glucose, naloxone, ondansetron ODT OR ondansetron, senna-docusate sodium Continuous Assessment Data: (CAT1) Reviewed 3 or more notes from different specialty or health system (each=1). (CAT1) Reviewed 3 or more labs/studies ordered by another provider not previously counted (each=1, panels count as 1). (CAT1) Ordered 2 new labs and/or studies (each=1, panels count as 1). (LOW: 2x CAT1 or independent historian MOD: 3x CAT1 or 1x CAT3 EXTENSIVE: 3x CAT1 and 1x CAT3) Acute, acute on chronic, unstable/uncontrolled chronic problems/diagnoses: Severe sepsis - improved, leukocytosis resolved , PNA workup has been negative , blood cultures neg x 48 hours Acute hypoxemic respiratory failure - now on nasal cannula at 4 liters SATs 91-94, titrate as tri , pulmonology following Respiratory acidosis - resolved T2DM with hyperglycemia - monitor BS, continue prandial insulin and sliding scale Normocytic anemia - monitor with daily CBC Stable chronic problems affecting care, new non-acute diagnoses: Hx developmental delay Hx of dilated ascending aorta 4.0 cm GERD Class 3 morbid obesity - BMI 40 HTN Plan As a result of the above findings & factors, the following mgmt was pursued: - stable , reviewed ICU notes - am labs, replace lytes prn - PT/OT/CM/SW - delirium precautions: increase activity and limit nighttime disturbances - DVT prophylaxis: enoxaparin and encourage ambulation Complexity: Acute illness with systemic symptoms (MOD). Risk: Prescription drug/IVF/colloid was initiated, discontinued, adjusted; or reviewed with decision to maintain current orders (MOD). Low risk diagnostic testing or treatment (LOW). Advance Directive: Full Code Anticipated Discharge - Date - TBD - Location - Skilled Facility - Pending the following - clinical improvement Total time spent (which include face to face and non face to face encounters) : minutes Toxic drug monitoring/narrow therapeutic index drug monitoring : # Drug name : # Route administered : # Method of monitoring : Extended Emergency Contact Information Primary Emergency Contact: Sreekanth Reyes Relation: Sibling Krissy Cantu PTARICIA Murillo CNP Division of Hospitalist Medicine [facility] Images from the original note were not included. PHYSICAL THERAPY [facility] Initial Evaluation Name/MRN: James Reyes ([id number]) Evaluation Date: 06/01/2024 Date of : 1955 Admission Date: 05/30/2024 8:35 AM Age: 68 y.o. Room/Bed: 222-04/222-04 A Discharge Recommendation: Half-Way Facility Equipment Needed: (TBD by facility) Assessment IMPRESSION: Pt admitted 05/30 with n/v and SOB, fuond to have acute hypercapnic respiratory failure. Pt is A&Ox1 and a poor historian, PLOF is unclear but pt reports indep transfers to w/c, indep some ADLs with some assist for bathrooming, and indep for some ambulation with rollator. Pt is now max A for bed mobility, max Ax1 + mod Ax1 for transfers, mod A for minimal side steps at EOB with FWW. Pt demos generalized weakness, instability, requires cueing for safe functional mobility, rapid fatigue. Pt is likely below functional baseline. Pt would continue to benefit from skilled PT intervention to address limitations and improve return to PLOF. Rec return to SNF with skilled PT services. Admitting Diagnosis: acute hypercapnic respiratory failure Prognosis: fair Performance Deficits /Impairments: Decreased Functional Mobility, Decreased ADL status, Decreased Strength, Decreased Safety Awareness, Decreased Endurance, Decreased Balance, Decreased ROM, Decreased High Level IADLs, Decreased Cognition, Decreased Coordination, and Decreased Posture Decision Making: Medium Complexity Subjective Pt requires some encouragement to participate in therapy. Per RN, pt is ok for therapy. Pain: Pt denies any current pain. Past Medical History: Past Medical History: Diagnosis Date Acute kidney injury (HCC) 09/11/2015 CAD in [place] artery 08/08/2017 COPD (chronic obstructive pulmonary disease) (HCC) Developmental disorder Diabetes mellitus (HCC) Esophageal reflux Gastritis see EGD on 03/29/2016 GERD (gastroesophageal reflux disease) Hyperlipidemia IBS (irritable bowel syndrome) Mixed Obesity Osteoarthritis Pain management Plantar fasciitis, bilateral Unspecified sleep apnea Urinary retention Past Surgical History: Past Surgical History: Procedure Laterality Date CHOLECYSTECTOMY 03/29/20162010 COLONOSCOPY 05/23/2017 COLONOSCOPY 03/29/2016, repeat in 10 years, Dr. Ness, normal except internal hemorrhoid COLONOSCOPY N/A 07/18/2022 Performed by David Chen MD at [facility] OR CORONARY ARTERY BYPASS GRAFT FOOT SURGERY Left 2014 HEMORRHOID SURGERY 1997 INNER EAR SURGERY tube placement in ears LAYERED WOUND CLOSURE N/A 10/16/2017 sternal wound debridment and closure with wound vac OTHER SURGICAL HISTORY 10/24/2017 I&D sternal wound with flap OTHER SURGICAL HISTORY punching bag removal THYROID SURGERY nodule removal 2010 TONSILLECTOMY (HISTORICAL) UPPER GASTROINTESTINAL ENDOSCOPY 04/01/2016 gastritis, duodentitis WISDOM TOOTH EXTRACTION Admission Diagnosis: Patient Active Problem List Diagnosis Date Noted IBS (irritable bowel syndrome) 08/08/2017 Acute hypercapnic respiratory failure ([facility]) 05/30/2024 Closed head injury, initial encounter 11/29/2023 Uncontrolled type 2 diabetes mellitus with hyperglycemia, with long-term current use of insulin ([facility]) 10/30/2017 Uncontrolled type 2 diabetes mellitus with complication, with long-term current use of insulin 10/25/2017 Pseudomonas aeruginosa infection 10/20/2017 Sternal wound dehiscence 10/20/2017 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 10/20/2017 Wound disruption, post-op, skin, initial encounter 10/16/2017 Dyslipidemia 08/08/2017 Knee osteoarthritis 08/08/2017 Insulin dependent diabetes mellitus 08/08/2017 MINERVA (obstructive sleep apnea) 08/08/2017 Tobacco abuse 08/08/2017 CAD in [place] artery 08/08/2017 Angina at rest ([facility]) 08/08/2017 Hypertensive heart disease 08/08/2017 COPD (chronic obstructive pulmonary disease) ([facility]) 08/08/2017 Chest pain 08/06/2017 Colitis, collagenous 06/15/2017 Anemia 05/23/2017 Gastroesophageal reflux disease without esophagitis 05/23/2017 Colitis 05/21/2017 Esophagitis, reflux 04/26/2017 Type 2 diabetes, uncontrolled, with neuropathy 04/26/2017 Hiatal hernia 02/21/2017 Arthritis of foot, degenerative 01/09/2017 Enlarged prostate with lower urinary tract symptoms (LUTS) 09/07/2016 Morbid obesity ([facility]) 08/12/2016 Shoulder pain, left 10/23/2014 Knee pain, bilateral 10/23/2014 Medical Precautions: No active isolations Proper PPE donned/doffed in accordance with facility standards. 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 Reports incorrect birthdate, when oriented to correct date, reports "no one told me that". Reports year as "3029." Did state "[facility]" as location after cueing, initially reported location as "in bed". Vision: Not Assessed Hearing: normal Social/Functional History Patient admitted from SNF. Assistive Equipment: rollator and wheelchair - manual PLOF is unclear but pt reports indep transfers to w/c, indep some ADLs with some assist for bathrooming, and indep for some ambulation with rollator Prior Level of Function Prior Level of ADL Function: (Pt reports indendent, but unsure true PLOF.) Prior Level of Mobility: (Pt reports indendent with rollator, but unsure true PLOF.); Device: Rollator and Wheelchair - manual Prior Level of Transfers: (Pt reports indendent, but unsure true PLOF.) Objective Lower Extremity Assessment AROM: Exceptions: limited by weakness but WFL PROM: Not assessed this session Strength: Exceptions: Grossly limited </=3/5 through functional mobility. Sensation: Not assessed this session Balance: Balance During Session: Posture: fair Sitting - Static: Contact Guard Sitting - Dynamic: Contact Guard Standing - Static: Mod Assist with FWW Standing - Dynamic: Mod Assist with FWW Bed Mobility: Supine to sit: Max Assist Sit to supine: Max Assist HOB elevated, use of bed rails, with increased time and effort required, compensations from UEs to complete bed mobility. Required max A for trunk and BLE mgmt out and in. Denies dizziness. Transfers Sit to stand: Mod Assist, Max Assist, x2 Person Assist Stand to sit: Max Assist x1 Attempted x4 transfers with max Ax1 from raised bed and all cleared buttocks but unsuccessful to achieve full stand. RN came to assist with transfer and required max Ax1 + mod Ax1 to complete transfer into standing for elevation. Pt requires VC to complete transfers for hand placement, FWW management, nose over toes, and full extension. Denies dizziness. Poor command following and awareness. Requested multiple times for pt to try to get feet on the floor. Reports "they are on the floor!" multiple times while neither foot was touching the floor. Ambulation Ambulation 1 Assistive device(s) used: Front wheeled walker Assist level: Mod Assist + CGA (x2 person assist) Distance (ft): 2' laterally Quality of gait: shuffling, instability through all phases, poor foot clearance, VC for sequencing, FWW mgmt. MOD A for stability and assist with weight shifting, with RN standing by with CGA for safety for line mgmt and safety. Outcome Measures AM-PAC How much HELP from another person do you currently need Turning from your back to your side while in a flat bed without using bedrails?: A Lot Moving from lying on your back to sitting on the side of a flat bed without using bedrails?: A Lot Moving to and from a bed to a chair (including a wheelchair)?: Total Standing up from a chair using your arms (wheelchair or bedside chair)?: Total Walking in a hospital room?: Total Stair climbing assessed?: No AM-PAC Inpatient Mobility Raw Score (No Stairs) : 7 [facility] Score: Static standing (1 or more minutes) Plan Pt would benefit from skilled acute PT services to address Strengthening, ROM, Gait Training, Balance Training, Self-Care/ADL Training, Functional Mobility Training, Endurance Training, Safety Education and Training, Stair Training, Pain Management, Equipment Evaluation/Education, Cognitive Reorientation, and Neuromuscular Re-Education Training. Frequency: 5 visits during current hospital admission or until additional recommendations are made Barriers: Lower extremity weakness, Decreased endurance, Cognitive deficit, Limited insight into deficits, and Long standing deficits Safety/Education Safety Safety Devices in place: All fall risk precautions in place, call light within reach, left in bed, gait belt, patient at risk for falls, nurse notified, and no alarms engaged upon entry Restraints: No Education Education Given To: patient Education Provided: PT Role, PT Goals, Gait Training, Plan of Care, Transfer Training, Orientation, Family Education, Fall Prevention Education, Discharge Recommendations, and Benefits of Increasing Activity Education Method: Verbal and Demonstration Barriers to Learning: Cognition Education Outcome: Continued Education Needed Goals Patient Stated Goal: Patient unable to participate in goal setting at this time, does not provide despite being asked. Encounter Problems Encounter Problems (Active) Balance Patient will maintain static standing balance for 1 minutes with CGA in order to demonstrate decreased risk of falling. Start: 06/01/24 Expected End: 06/08/24 Exercise Patient will complete lower extremity exercises for 1-2 sets / 5-10 reps in order to improve strength and activity tolerance for mobility. Start: 06/01/24 Expected End: 06/08/24 Mobility Patient will ambulate 5 feet with min assist and rolling walker in order to improve safety and independence with mobility. Start: 06/01/24 Expected End: 06/08/24 Patient will propel the wheelchair for 50 ft and modified independence in order to improve safety and independence with functional mobility. Start: 06/01/24 Expected End: 06/08/24 Transfers Patient will perform bed mobility with min assist in order to improve independence and prepare for out of bed mobility. Start: 06/01/24 Expected End: 06/08/24 Patient will complete sit to stand transfer with mod assist to rolling walker in order to improve safety and prepare for out of bed mobility. Start: 06/01/24 Expected End: 06/08/24 Therapy Time Individual Co-Treatment Co-Evaluation Time In 1423 Time Out 1442 Minutes 19 Lyla Woodall PT Patient's Physical Therapy Plan of Care supervision is transferred to a [facility] Physical Therapist. Goals and/or treatment plan was established in collaboration with patient/family/other representatives. ICU Progress Note Name: James Reyes : 1955(68 y.o.) Date: 02/15/25 Team: MICU Attending: WILLIS Assessment and Plan: Severe sepsis Acute hypoxemic respir failure Respir acidosis AECOPD MINERVA JESSIKA -- Cr improved today NAGMA -- improved Leukocytosis -- resolved T2DM uncontrolled w/ hyperglycemia Anemia (chronic, normocytic) -- stable CAD w/ h/o CABG 2014. Body mass index is 40.69 kg/m . Morbid obesity Wean HHFNC today. Trial on NC if able. Titrate FiO2 to maintain SpO2 88-94%. Continue nebs. Change IV to PO steroids. PAP at night for sleeping. DC abx. Follow renal fcn daily. Avoid nephro tox agents if able. Continue lantus 44. Increase humalog Humalog mod SSI qAC FSBS qAC/HS Carb controlled diet to ongoing today. Analgesics: tylenol, lyrica Sedation: no Pressors: no Vent: no Diet: reg carb controlled DVT: lovenox GI: PPI ABx: none Lines/Invasive Equip: PIV Consultants: none In my professional opinion this pt remains critically ill based on the aforementioned assessment/plan: No Lifethreatening disease process: No Unstable organ failure: No Active vent mgmt: No Active management of life support system(s): No Disposition: Stable to transfer to floor. If can remain off of HHFNC and on normal NC. Critical Care Time: n/a Or Noncritical Care Time: 35min Total time caring for this patient including direct patient contact, review of data including imaging and labs, discussions with other team members and physicians, excluding procedures. Subjective: Hospital Summary: Chief Complaint Patient presents with Vomiting Shortness of Breath 68 y/o M w/ Hx below p/w SOB from SNF/rehab. Reported to be hypoxemic into 70s for EMS. Given neb by EMS. Placed on NRB with improvement into 90s. He has receved lasix, neb, abx and steroids in the ER. MICU consulted for new O2 requirement and acidosis. + sick contacts at home. Interval Events : NAONE. Tolerated BiPAP w/ some adjustments. Tolerating PO. BM+ UOP ok Past and present diagnoses are accessible in the electronic medical record for review by the treating and consulting physicians in the case. They were reviewed and updated (if needed) for this encounter. Objective: Last Vitals: BP MAP 130/66 (06/01/24 1101) 84 (06/01/24 1101) Arterial BP MAP Temp 36.8 C (98.3 F) (06/01/24 1101) Pulse 66 (06/01/24 1213) Resp 18 (06/01/24 1213) SpO2 92 % (06/01/24 1213) Weight 135 kg (296 lb 11.2 oz) (05/30/24 1901) BMI Body mass index is 40.24 kg/m . Physical Exam Vitals and nursing note reviewed. Constitutional: General: He is awake. He is not in acute distress. Appearance: Normal appearance. He is obese. He is not ill-appearing, toxic-appearing or diaphoretic. HENT: Head: Normocephalic and atraumatic. Right Ear: External ear normal. Left Ear: External ear normal. Nose: Nose normal. Mouth/Throat: Mouth: Mucous membranes are moist. Eyes: General: Lids are normal. No scleral icterus. Right eye: No discharge. Left eye: No discharge. Extraocular Movements: Extraocular movements intact. Conjunctiva/sclera: Conjunctivae normal. Right eye: Right conjunctiva is not injected. Left eye: Left conjunctiva is not injected. Pupils: Pupils are equal, round, and reactive to light. Pupils are equal. Neck: Trachea: Trachea normal. No tracheostomy or tracheal deviation. Cardiovascular: Rate and Rhythm: Normal rate and regular rhythm. Pulses: Normal pulses. Pulmonary: Effort: Pulmonary effort is normal. Breath sounds: Decreased breath sounds present. No wheezing, rhonchi or rales. Musculoskeletal: Comments: MAEx4 Skin: General: Skin is warm. Capillary Refill: Capillary refill takes 2 to 3 seconds. Neurological: General: No focal deficit present. Mental Status: He is alert and oriented to person, place, and time. GCS: GCS eye subscore is 4. GCS verbal subscore is 5. GCS motor subscore is 6. Psychiatric: Attention and Perception: Attention normal. Behavior: Behavior is cooperative. ICU Progress Note Name: James Reyes : 1955(68 y.o.) Date: 05/31/24 Team: MICU Attending: ANDRES Assessment and Plan: Severe sepsis Acute hypoxemic respir failure Respir acidosis AECOPD MINERVA JESSIKA NAGMA Leukocytosis T2DM uncontrolled w/ hyperglycemia Anemia (chronic, normocytic) CAD w/ h/o CABG 2014. Body mass index is 40.69 kg/m . Morbid obesity Can trial off of NIV today. Titrate FiO2 to maintain SpO2 88-94%. Continue nebs. Continue IV steroids. PAP at night for sleeping. Continue Abx for today. Anticipate DC tomorrow as infxn w/up has not revealed any target. Procal being checked today. Follow renal fcn daily. Avoid nephro tox agents if able. If Cr worsens will consider Nephro consult. Continue lantus 44. Start humalog Humalog mod SSI qAC Carb controlled diet to start today. Follow daily cell counts. Analgesics: tylenol, lyrica Sedation: no Pressors: no Vent: no Diet: reg carb controlled DVT: lovenox GI: PPI ABx: Cefepime DC VANC Lines/Invasive Equip: PIV Consultants: none In my professional opinion this pt remains critically ill based on the aforementioned assessment/plan: Yes Lifethreatening disease process: Yes Unstable organ failure: No Active vent mgmt: No Active management of life support system(s): No Disposition: MICU Critical Care Time: 35min Or Noncritical Care Time: n/a Total time caring for this patient including direct patient contact, review of data including imaging and labs, discussions with other team members and physicians, excluding procedures. Subjective: Hospital Summary: Chief Complaint Patient presents with Vomiting Shortness of Breath 68 y/o M w/ Hx below p/w SOB from SNF/rehab. Reported to be hypoxemic into 70s for EMS. Given neb by EMS. Placed on NRB with improvement into 90s. He has receved lasix, neb, abx and steroids in the ER. MICU consulted for new O2 requirement and acidosis. + sick contacts at home. Interval Events : NAONE. Wants to eat. Past and present diagnoses are accessible in the electronic medical record for review by the treating and consulting physicians in the case. They were reviewed and updated (if needed) for this encounter. Objective: Last Vitals: BP MAP 130/63 (05/31/24 0903) 82 (05/31/24902) Arterial BP MAP Temp 36.7 C (98 F) (05/31/24802) Pulse 85 (05/31/24902) Resp 20 (05/31/24902) SpO2 97 % (05/31/24802) Weight 135 kg (296 lb 11.2 oz) (05/30/24 1901) BMI Body mass index is 40.24 kg/m . Physical Exam Vitals and nursing note reviewed. Constitutional: General: He is awake. He is not in acute distress. Appearance: Normal appearance. He is obese. He is not ill-appearing, toxic-appearing or diaphoretic. HENT: Head: Normocephalic and atraumatic. Right Ear: External ear normal. Left Ear: External ear normal. Nose: Nose normal. Mouth/Throat: Mouth: Mucous membranes are moist. Eyes: General: Lids are normal. No scleral icterus. Right eye: No discharge. Left eye: No discharge. Extraocular Movements: Extraocular movements intact. Conjunctiva/sclera: Conjunctivae normal. Right eye: Right conjunctiva is not injected. Left eye: Left conjunctiva is not injected. Pupils: Pupils are equal, round, and reactive to light. Pupils are equal. Neck: Trachea: Trachea normal. No tracheostomy or tracheal deviation. Cardiovascular: Rate and Rhythm: Normal rate and regular rhythm. Pulses: Normal pulses. Pulmonary: Effort: Pulmonary effort is normal. Breath sounds: Decreased breath sounds present. No wheezing, rhonchi or rales. Musculoskeletal: Comments: MAEx4 Skin: General: Skin is warm. Capillary Refill: Capillary refill takes 2 to 3 seconds. Neurological: General: No focal deficit present. Mental Status: He is alert and oriented to person, place, and time. GCS: GCS eye subscore is 4. GCS verbal subscore is 5. GCS motor subscore is 6. Psychiatric: Attention and Perception: Attention normal. Behavior: Behavior is cooperative. Nutrition Assessment Type and Reason for Visit: Initial, Consult (Oral nutritional supplements) Nutrition Recommendations/Plan: Currently NPO d/t respiratory status. Will monitor need for oral nutritional supplements upon diet advancement. Consider Pro-stat once daily upon diet progression. Pro-stat provides 100 kcals, 15g protein per 30 ml serving. Will monitor needs for alternate nutrition if PO remains contraindicated d/t respiratory status- if EN warranted, recommend Glucerna 1.5 with goal of 50 ml/hr to provide 1800 kcals, 99g protein, and 910 ml free water (~13 kcals/kg ABW 135 kg, 1.2g protein per kg IBW 81kg) Monitor for timely diet advancement, tolerance, weights, and labs. RD will follow. Malnutrition Assessment: Malnutrition Status: At risk for malnutrition (Comment) (NPO, ICU with acute respiratory failure) Context: Acute Illness Findings of the 6 clinical characteristics of malnutrition: Energy Intake: (currently NPO) Weight Loss: No significant weight loss Body Fat Loss: No significant body fat loss Muscle Mass Loss: No significant muscle mass loss Fluid Accumulation: Mild Extremities Concrete Sculptor Strength: Not Performed Nutrition Assessment: Pt is a 68 y/o male admitted to [facility] with acute hypercapnic respiratory failure- admitted with vomiting coffee ground emesis and SOB. Pt came from [facility] s/p open heart procedure. Pt remains NPO until respiratory status improved; to transition to NIV. Respiratory pathogen negative. Pt has hx of Hyperlipidemia, DM, COPD, GERD, IBS. Glucose elevated, however, Solu Medrol may be contributing. No weight loss identified per documented wt history in EMR. Estimated Daily Nutrient Needs: Energy Requirements Based On: Kcal/kg Weight Used for Energy Requirements: Current Weight for Energy Calculation (kg): 135 kg Total Energy Requirements (kcals/day): 2276-8498 kcals (11-14 kcals/kg) Weight Used for Protein Requirements: [place] Weight in Kg Used for Protein Requirements: 81 kg Estimated Total Protein (g/day): 97-138g (1.2-1.7g/kg) Estimated Daily Total Fluid (ml/day): per MD Nutrition Related Findings: +1 BLE, mild BUE edema; BUN 58, Cr 1.58, GFR 47.6, Glucose 194, 284, Hgb A1c 8.5% (11/30/23), Corrected ca++ 8.82, Albumin 2.8, Phos 5.2, Hgb 9.8, Hct 33.8; Solu Medrol, Creon, PPI, Miralax, Humulin/Novolin Wound Type: (bruising/redness to BLE and coccyx) Current Nutrition Therapies: NPO diet with enteral medications Current Oral Intake Average Meal Intake: NPO Average Supplements Intake: NPO Anthropometric Measures: Height: 182.9 cm (6') Current Body Weight: 134 kg (296 lb) Weight Source: Bed Scale Admission Body Weight: 136 kg (300 lb) (stated) Usual Body Weight: 125 kg (276 lb) (276#-05/12/23, 284#-03/08/24) % Weight Change (Calculated): 7.2 [place] Body Weight (lbs) (Calculated): 178 lbs [place] Body Weight (Kg) (Calculated): 81 kg % [place] Body Weight (Calculated): 166.3 % BMI (kg/m2) (Calculated): 40.1 Weight Adjustment For: No Adjustment BMI Categories: Obese Class 3 (BMI 40.0 or greater) Nutrition Diagnosis: Inadequate oral intake related to acute injury/trauma, impaired respiratory function as evidenced by NPO or clear liquid status due to medical condition Nutrition Interventions: Nutrition Education/Counseling: No recommendation at this time Coordination of Nutrition Care: Continue to monitor while inpatient Plan of Care discussed with: Rounds Goals: Goals: Initiate PO diet, by next RD assessment, Meet at least 75% of estimated needs Nutrition Monitoring and Evaluation: Behavioral-Environmental Outcomes: None Identified Food/Nutrient Intake Outcomes: Diet Advancement/Tolerance Physical Signs/Symptoms Outcomes: Biochemical Data, GI Status, Nausea or Vomiting, Fluid Status or Edema, Nutrition Focused Physical Findings, Skin, Weight Discharge Planning: Too soon to determine Alejandra Olivas RD Contact: [phone] or via Secure Chat Vancomycin therapy has been discontinued by Dr. Haydee Willis on 30may2024. Thank you for the consult. Pharmacy signing off for vancomycin dosing. Henok Chang PharmD, Date: 05/30/24 Time: 6:10 PM Patient currently on NIV, smoking cessation counseling held at this time. documented in this encounter [facility] 06-04-2024 Note Patient currently of f unit, will attempt smoking cessation counseling at a later time. [facility] 06-04-2024 Plan of care note Problem: Knowledge Deficit Goal: Patient/family/caregiver demonstrates understanding of disease process, treatment plan, medications, and discharge instructions Outcome: Progressing Problem: Potential for Compromised Skin Integrity Goal: Skin Integrity is Maintained or Improved Outcome: Progressing Goal: Nutritional status is improving Outcome: Progressing Problem: Urinary Incontinence Goal: Perineal skin integrity is maintained or improved Outcome: Progressing Problem: Respiratory - Adult Goal: Achieves optimal ventilation and oxygenation Outcome: Progressing Problem: Genitourinary - Adult Goal: Absence of urinary retention Outcome: Progressing Goal: Urinary catheter remains patent Outcome: Progressing Problem: Problem Interventions Goal: Promote nutritional intake Outcome: Progressing [facility] 06-03-2024 Nurse Note Attempted to wean patient to 2L NC. Patient sats dropped to 87%. 88-90% on 3L NC. Patient left on 4L NC at this time with continuous pulse ox showing 94%. Instructed to call out with any needs. [facility] 06-03-2024 Note Formatting of this n ote might be different from the original. Rounds this am Per [facility] communications: patient is LTC and does have bedhold. No auth needed to return - just a time and any updates 96% on RA this am Updates: Attempted to wean patient to 2L NC. Patient sats dropped to 87%. 88-90% on 3L NC. Patient left on 4L NC [facility] 06-03-2024 Note Formatting of this n ote might be different from the original. Rounds this am Per [facility] communications: patient is LTC and does have bedhold. No auth needed to return - just a time and any updates 96% on RA this am Updates: Attempted to wean patient to 2L NC. Patient sats dropped to 87%. 88-90% on 3L NC. Patient left on 4L NC [facility] 06-03-2024 Plan of care note Problem: Knowledge Deficit Goal: Patient/family/caregiver demonstrates understanding of disease process, treatment plan, medications, and discharge instructions Outcome: Progressing Problem: Potential for Compromised Skin Integrity Goal: Skin Integrity is Maintained or Improved Outcome: Progressing Goal: Nutritional status is improving Outcome: Progressing Problem: Urinary Incontinence Goal: Perineal skin integrity is maintained or improved Outcome: Progressing Flowsheets (Taken 06/03/2024 0326) Perineal skin integrity is maintained or improved: Keep skin clean and dry Note: Condom cath in place and draining. Problem: Respiratory - Adult Goal: Achieves optimal ventilation and oxygenation Outcome: Progressing Problem: Genitourinary - Adult Goal: Absence of urinary retention Outcome: Progressing Goal: Urinary catheter remains patent Outcome: Progressing Problem: Problem Interventions Goal: Promote nutritional intake Outcome: Progressing [facility] 06-02-2024 Consult note Formatting of th is note is different from the original. Images from the original note were not included. [facility], Pulmonary Medicine [address] [place] [id number] Patient - James Reyes [facility] # - [id number] - 1955 Date of Admission - 05/30/2024 8:35 AM Date of evaluation - 06/02/2024 Room - [id number]/[id number] A Hospital Day - 3 Consulting - Manjinder Sanchez MD Primary Care Physician - Chelle Troncoso MD Active Hospital Problem List Patient Active Problem List Diagnosis Shoulder pain, left Dyslipidemia Knee pain, bilateral Knee osteoarthritis Insulin dependent diabetes mellitus [place] (obstructive sleep apnea) Tobacco abuse Esophagitis, reflux Morbid obesity ([facility]) Type 2 diabetes, uncontrolled, with neuropathy Wound disruption, post-op, skin, initial encounter Uncontrolled type 2 diabetes mellitus with hyperglycemia, with long-term current use of insulin ([facility]) CAD in [place] artery Uncontrolled type 2 diabetes mellitus with complication, with long-term current use of insulin IBS (irritable bowel syndrome) Pseudomonas aeruginosa infection Angina at rest ([facility]) Sternal wound dehiscence care home (current) use of antibiotics Enlarged prostate with lower urinary tract symptoms (LUTS) Hypertensive heart disease COPD (chronic obstructive pulmonary disease) ([facility]) Arthritis of foot, degenerative Hiatal hernia Colitis Chest pain Anemia Colitis, collagenous Gastroesophageal reflux disease without esophagitis Closed head injury, initial encounter Acute hypercapnic respiratory failure ([facility]) Reason for Consult Respiratory failure on BiPAP. History of Present Illness James Reyes is a 68 y.o. male admitted for For shortness of breath and vomiting Patient from the SNF/rehab for short of breath reported to be hypoxic into the 70s, patient was placed on NRB with improvement of oxygenation to 90s, received Lasix nebulizer treatment antibiotics and steroid in the emergency room Was admitted to the ICU with sepsis acute hypoxic hypercapnic respiratory failure With pH of 7.290 pCO2 of 50 and pO2 of 64 on heated high flow, COPD exacerbation, underlying history of obstructive sleep apnea noncompliant with PAP therapy, acute kidney injury, uncontrolled diabetes mellitus Patient with a history of coronary disease status post coronary bypass graft surgery morbid obesity Apparently continues to smoke Patient was treated with NIV later weaned down to 4 L a cannula/BiPAP 01/02 and transferred to the floor Patient currently sleeping easily awake on 4 L a cannula saturation 93 to 95% Medical History Past Medical History Past Medical History: Diagnosis Date Acute kidney injury (HCC) 09/11/2015 CAD in [place] artery 08/08/2017 COPD (chronic obstructive pulmonary disease) (HCC) Developmental disorder Diabetes mellitus (HCC) Esophageal reflux Gastritis see EGD on 03/29/2016 GERD (gastroesophageal reflux disease) Hyperlipidemia IBS (irritable bowel syndrome) Mixed Obesity Osteoarthritis Pain management Plantar fasciitis, bilateral Unspecified sleep apnea Urinary retention Past Surgical History Past Surgical History: Procedure Laterality Date CHOLECYSTECTOMY 03/29/20162010 COLONOSCOPY 05/23/2017 COLONOSCOPY 03/29/2016, repeat in 10 years, Dr. Ness, normal except internal hemorrhoid COLONOSCOPY N/A 07/18/2022 Performed by David Chen MD at [facility] OR CORONARY ARTERY BYPASS GRAFT FOOT SURGERY Left 2015 HEMORRHOID SURGERY 1997 INNER EAR SURGERY tube placement in ears LAYERED WOUND CLOSURE N/A 10/16/2017 sternal wound debridment and closure with wound vac OTHER SURGICAL HISTORY 10/24/2017 I&D sternal wound with flap OTHER SURGICAL HISTORY punching bag removal THYROID SURGERY nodule removal 2010 TONSILLECTOMY (HISTORICAL) UPPER GASTROINTESTINAL ENDOSCOPY 04/01/2016 gastritis, duodentitis WISDOM TOOTH EXTRACTION Social History Social History Socioeconomic History Marital status: Single Spouse name: Not on file Number of children: Not on file Years of education: Not on file Highest education level: Not on file Occupational History Not on file Tobacco Use Smoking status: Every Day Current packs/day: 1.00 Average packs/day: 1 pack/day for 51.1 years (51.1 ttl pk-yrs) Types: Cigarettes Start date: 04/28/1973 Smokeless tobacco: Never Vaping Use Vaping status: Never Used Substance and Sexual Activity Alcohol use: No Alcohol/week: 0.0 standard drinks of alcohol Drug use: No Comment: caffeine use: decaf coffee sometimes Sexual activity: Not on file Comment: single Other Topics Concern Not on file Social History Narrative Not on file Social Drivers of Health Financial Resource Strain: Not on file Food Insecurity: Not on file Transportation Needs: No Transportation Needs (11/30/2023) PRAPARE - Transportation Lack of Transportation (Medical): No Lack of Transportation (Non-Medical): No Physical Activity: Not on file Stress: Not on file Social Connections: Not on file Intimate Partner Violence: Not At Risk (11/30/2023) Humiliation, Afraid, Rape, and Kick questionnaire Fear of Current or Ex-Partner: No Emotionally Abused: No Physically Abused: No Sexually Abused: No Housing Stability: Low Risk (11/30/2023) Housing Stability Vital Sign Unable to Pay for Housing in the Last Year: No Number of Times Moved in the Last Year: 0 Homeless in the Last Year: No Family History Family History Problem Relation Name Age of Onset Heart attack Mother 61.00 Heart disease Father Other ([id number]) Brother accident Coronary artery disease Father Diabetes Father Immunization History Immunization History Administered Date(s) Administered Covid-19, Pfizer Bivalent Booster, (Age 12y+), Im, 30 Mcg/0e 03/01/2022 Influenza, High Dose Seasonal, Preservative Free 01/04/2017 Influenza, Unspecified 01/08/2015 Pfizer SARS-CoV-2 Vaccination 04/15/2020, 05/06/2020, 02/02/2021, 09/01/2021 Pneumococcal Conjugate, Unspecified 09/20/2013 Tdap 11/29/2023 Medications Current Medications aspirin, 81 mg, Oral, Daily carvedilol, 6.25 mg, Oral, BID WC enoxaparin, 30 mg, SubCUTAneous, 2 times per day guaiFENesin, 600 mg, Oral, BID insulin glargine, 44 Units, SubCUTAneous, Nightly insulin lispro, 0-12 Units, SubCUTAneous, TID WC insulin lispro, 16 Units, SubCUTAneous, TID WC ipratropium-albuterol, 3 mL, Nebulization, 4x daily mupirocin, 1 Application, Nasal, BID pancrelipase (Dwf-Fdiu-Aunq), 1 capsule, Oral, TID WC pantoprazole, 40 mg, Oral, q AM polyethylene glycol (PEG) 3350, 17 g, Oral, Daily predniSONE, 40 mg, Oral, Daily pregabalin, 150 mg, Oral, BID tamsulosin, 0.4 mg, Oral, Daily PRN Mediations PRN medications: acetaminophen, dextrose, dextrose, glucagon (rDNA), glucose, naloxone, ondansetron ODT OR ondansetron, senna-docusate sodium IV Drips/Infusions Home Medications Current Outpatient Medications Medication Instructions acetaminophen (TYLENOL) 1,000 mg, 3 times daily Advair Diskus 250-50 MCG/ACT aerosol powder No dose, route, or frequency recorded. albuterol 108 (90 Base) MCG/ACT inhaler 2 puffs, Every 6 hours PRN albuterol 2.5 mg aspirin 81 mg, Daily atorvastatin (LIPITOR) 80 mg, Daily carvedilol (COREG) 6.25 mg, Oral, 2 times daily with meals cholestyramine (Questran) 4 g packet 1 packet, 3 times daily with meals cilostazol (PLETAL) 50 mg, 2 times daily dicyclomine (BENTYL) 10 mg, 3 times daily empagliflozin (JARDIANCE) 25 mg, Daily ergocalciferol (VITAMIN D-2) 1.25 mg, Weekly ezetimibe (ZETIA) 10 mg, Nightly famotidine (PEPCID) 20 mg, Daily finasteride (PROSCAR) 5 mg, Daily fluticasone (Flonase) 50 MCG/ACT nasal spray 1 spray, Daily ibuprofen 600 mg, Every 6 hours PRN Incruse Ellipta 62.5 MCG/ACT inhalation 1 puff, Daily insulin glargine (LANTUS) 48 Units, Daily Insulin Lispro (HUMALOG) 16 Units, 3 times daily Menthol, Topical Analgesic, (Biofreeze Cool The Pain) 4 % gel Every 12 hours PRN metFORMIN (GLUCOPHAGE) 500 mg, 2 times daily with meals nabumetone (RELAFEN) 750 mg, 2 times daily nitroglycerin (NITROSTAT) 0.4 mg, Every 5 min PRN nystatin (Mycostatin) cream No dose, route, or frequency recorded. pancrelipase, Yta-Dbdp-Zjma, (Creon) 78476-89661 units capsule 3 times daily with meals pregabalin (LYRICA) 150 mg, Oral, 2 times daily tamsulosin (FLOMAX) 0.4 mg, Daily tiotropium (Spiriva) 18 MCG inhalation capsule 1 capsule, Daily Allergies Allergies Allergen Reactions Penicillins Other reaction(s): Other (See Comments), Unknown unknown Tetracyclines & Related Other reaction(s): Other (See Comments), Unknown unknown Review of Systems General Denies any fever or chills HEENT Denies any diplopia, tinnitus or vertigo Resp See HPI Cardiac Denies any chest pain, palpitations, claudication or edema GI Denies any melena, hematochezia, hematemesis or pyrosis Denies any frequency, urgency, hesitancy or incontinence Heme Denies bruising or bleeding easily Neuro Denies any focal motor or sensory deficits Psychiatric Denies anxiety, depression, suicidal ideation Skin Denies rashes, itching, open sores Vitals height is 6' (1.829 m) and weight is 296 lb 11.2 oz (135 kg). His temporal temperature is 36.1 C (97 F). His blood pressure is 127/62 and his pulse is 60. His respiration is 17 and oxygen saturation is 95%. Body mass index is 40.24 kg/m . 24 Hour intake and output Intake/Output Summary (Last 24 hours) at 06/02/2024 0948 Last data filed at 06/02/2024 0847 Gross per 24 hour Intake 1550 ml Output 3300 ml Net -1750 ml @[id number]@ Physical Exam General appearance: Sleepy easily awake on 4 L a cannula saturating adequate HEENT: Normocephalic, atraumatic. Pupils equil and round, External ear normal, conjunctivae normal, negative for scleral icterus. No congestion. Neck: ROM normal, supple, trachea midline. No lymphadenopathy Cardiovascular: Regular rate and rhythm. Heart sounds normal. Negative for murmur, friction rub or gallop. Pulmonary: Effort normal, Decreased breath sound bilaterally No wheezing no rales appreciated No pleural rub Abdomen: Soft, non distended, non tender, bowel sounds normal. No palpable masses. No Hepatomegaly Musculoskeletal: ROM normal, Negative for swelling, tenderness or deformity. Skin: Warm, dry. Skin color, texture, turgor normal. Negative for rashes or lesions. Extremities: No clubbing, cyanosis, Trace bilateral extremity edema present Neurological: No focal deficits. Alert and oriented x 2. Cranial nerves II-XII are intact Lymphatics: No cervical or axillary lymphadenopathy Psychiatric: Mood, behavior, thought content normal. Cooperative with exam. Labs CBC Results from last 7 days Lab Units 06/02/24 0154 WBC AUTO 10*3/uL 7.5 HEMOGLOBIN g/dL 8.9* HEMATOCRIT % 29.6* PLATELETS 10*3/uL 206 BMP: Results from last 7 days Lab Units 06/02/24 0154 06/01/24 0410 05/31/24 0405 SODIUM mmol/L 136 133* 139 POTASSIUM mmol/L 4.6 4.8 4.8 CHLORIDE mmol/L 106 105 111* CO2 mmol/L 24 22* 20* BUN mg/dL 50* 62* 58* CREATININE mg/dL 1.20 1.43* 1.58* GLUCOSE mg/dL 224* 253* 194* CALCIUM mg/dL 8.3* 8.5* 8.1* ABG: Results from last 7 days Lab Units 05/30/24 1345 05/30/24 0937 PH ART 7.327* 7.290* PCO2 ART mm Hg 42.5 50.7* PO2 ART mm Hg 85.7 64.1* HCO3 ART mmol/L 21.8 23.8 O2 SAT ART % 95.9* 89.5* BASE EXC ART mmol/L -4.0* -3.0 SOURCE OF OXYGEN Bi-PAP Heated High Flow LIVER PROFILE Results from last 7 days Lab Units 05/31/24 0405 ALK PHOS U/L 69 BILIRUBIN TOTAL mg/dL 0.2 BILIRUBIN DIRECT mg/dL 0.1 PROTEIN TOTAL g/dL 5.4* ALT U/L 16 AST U/L 22 INR PTT No results found for: "PTT" Cultures NTD Sleep History History of obstructive sleep apnea noncompliant with PAP therapy Radiology Exam Date/Time: 05/31/2024 03:40 Procedure: XR CHEST 1 VIEW Ordering Provider: WILLIS RYAN Reason For Exam: respir failure EXAM TYPE: RADIOLOGIC EXAMINATION, CHEST, SINGLE VIEW FRONTAL (CXR SINGLE VIEW) EXAM DATE AND TIME: 05/31/2024 3:40 AM EST INDICATION: Respiratory distress COMPARISON: 05/30/2024 TECHNIQUE: A single portable frontal view of the thorax was obtained and reviewed. Special views: None. IMPRESSION: 1. Lines/Tubes/Devices/Hardware: Leads noted. Please confirm position and function of any catheters or attempted catheters clinically. 2. Lungs: Persistent infiltrate densities. No interval major volume loss.. Consider follow-up with PA and lateral chest for persistent symptoms. 3. Pleura: No significant effusion. No significant pneumothorax. 4. Heart and mediastinum: No convincing acute process. 5. Upper abdomen: No acute process seen. 6. Thorax:No acute bony process Assessment & Recommendations -Acute hypoxic hypercapnic respiratory failure requiring NIV/ICU admission currently on 4 L and BiPAP -Acute exacerbation of COPD -Obstructive sleep apnea morbid obesity likely underlying obesity hypoventilation syndrome noncompliant with PAP therapy -Continue tobacco use -Questionable left lower lobe infiltrate was on antibiotics currently off antibiotics per ICU -Coronary artery disease status post CABG Patient currently on 4 L a cannula titrate FiO2 to keep saturation 92 percentile Resume BiPAP importance of compliance with the PAP therapy was discussed with the patient Tapering dose of his steroid Bronchodilator therapy maximization Resume ICS and LABA as the patient was on Advair prior to admission DVT prophylaxis Weight loss strongly recommended however appears that it is difficult as patient restricted mobility Patient is off antibiotics as per ICU transfer Advance Directive: Full Code Case discussed with nurse and patient Questions and concerns addressed. Total time 60 minutes on this day of encounter includes counseling, coordinating plan of care, record and documentation review before and after visit including documentation and time not explicitly included on EMR time stamp for accounting for open encounter. Portions of the information within this encounter were entered using an electronic dictation system. Best attempts were made to edit/proofread the information prior to note completion. Despite the review of information, some errors may remain. If there are questions related to the information contained within the note please contact the signing provider directly. [employer] Phone: 06-02-2024 Consult note Formatting of th is note is different from the original. Images from the original note were not included. [facility] [place], Pulmonary Medicine [address] [place] [id number] [id number] - 1955 Date of Admission - 05/30/2024 8:35 AM Date of evaluation - 06/02/2024 Room - B2266/[facility] A Hospital Day - 3 Consulting - Manjinder Sanchez MD Primary Care Physician - Chelle Troncoso MD Active Hospital Problem List Patient Active Problem List Diagnosis Shoulder pain, left Dyslipidemia Knee pain, bilateral Knee osteoarthritis Insulin dependent diabetes mellitus MINERVA (obstructive sleep apnea) Tobacco abuse Esophagitis, reflux Morbid obesity (HCC) Type 2 diabetes, uncontrolled, with neuropathy Wound disruption, post-op, skin, initial encounter Uncontrolled type 2 diabetes mellitus with hyperglycemia, with long-term current use of insulin (HCC) CAD in [place] artery Uncontrolled type 2 diabetes mellitus with complication, with long-term current use of insulin IBS (irritable bowel syndrome) Pseudomonas aeruginosa infection Angina at rest (HCC) Sternal wound dehiscence 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 History of Present Illness James Reyes is a 68 y.o. male admitted for For shortness of breath and vomiting Patient from the SNF/rehab for short of breath reported to be hypoxic into the 70s, patient was placed on NRB with improvement of oxygenation to 90s, received Lasix nebulizer treatment antibiotics and steroid in the emergency room Was admitted to the ICU with sepsis acute hypoxic hypercapnic respiratory failure With pH of 7.290 pCO2 of 50 and pO2 of 64 on heated high flow, COPD exacerbation, underlying history of obstructive sleep apnea noncompliant with PAP therapy, acute kidney injury, uncontrolled diabetes mellitus Patient with a history of coronary disease status post coronary bypass graft surgery morbid obesity Apparently continues to smoke Patient was treated with NIV later weaned down to 4 L a cannula/BiPAP 01/02 and transferred to the floor Patient currently sleeping easily awake on 4 L a cannula saturation 93 to 95% Medical History Past Medical History Past Medical History: Diagnosis Date Acute kidney injury (HCC) 09/11/2015 CAD in [place] artery 08/08/2017 COPD (chronic obstructive pulmonary disease) ([facility]) Developmental disorder Diabetes mellitus ([facility]) Esophageal reflux Gastritis see EGD on 03/29/2016 GERD (gastroesophageal reflux disease) Hyperlipidemia IBS (irritable bowel syndrome) Mixed Obesity Osteoarthritis Pain management Plantar fasciitis, bilateral Unspecified sleep apnea Urinary retention Past Surgical History Past Surgical History: Procedure Laterality Date CHOLECYSTECTOMY 03/29/20162010 COLONOSCOPY 05/23/2017 COLONOSCOPY 03/29/2016, repeat in 10 years, Dr. Ness, normal except internal hemorrhoid COLONOSCOPY N/A 07/18/2022 Performed by David Chen MD at [facility] OR CORONARY ARTERY BYPASS GRAFT FOOT SURGERY Left 2015 HEMORRHOID SURGERY 1997 INNER EAR SURGERY tube placement in ears LAYERED WOUND CLOSURE N/A 10/16/2017 sternal wound debridment and closure with wound vac OTHER SURGICAL HISTORY 10/24/2017 I&D sternal wound with flap OTHER SURGICAL HISTORY punching bag removal THYROID SURGERY nodule removal 2010 TONSILLECTOMY (HISTORICAL) UPPER GASTROINTESTINAL ENDOSCOPY 04/01/2016 gastritis, duodentitis WISDOM TOOTH EXTRACTION Social History Social History Socioeconomic History Marital status: Single Spouse name: Not on file Number of children: Not on file Years of education: Not on file Highest education level: Not on file Occupational History Not on file Tobacco Use Smoking status: Every Day Current packs/day: 1.00 Average packs/day: 1 pack/day for 51.1 years (51.1 ttl pk-yrs) Types: Cigarettes Start date: 04/28/1973 Smokeless tobacco: Never Vaping Use Vaping status: Never Used Substance and Sexual Activity Alcohol use: No Alcohol/week: 0.0 standard drinks of alcohol Drug use: No Comment: caffeine use: decaf coffee sometimes Sexual activity: Not on file Comment: single Other Topics Concern Not on file Social History Narrative Not on file Social Drivers of Health Financial Resource Strain: Not on file Food Insecurity: Not on file Transportation Needs: No Transportation Needs (11/30/2023) PRAPARE - Transportation Lack of Transportation (Medical): No Lack of Transportation (Non-Medical): No Physical Activity: Not on file Stress: Not on file Social Connections: Not on file Intimate Partner Violence: Not At Risk (11/30/2023) Humiliation, Afraid, Rape, and Kick questionnaire Fear of Current or Ex-Partner: No Emotionally Abused: No Physically Abused: No Sexually Abused: No Housing Stability: Low Risk (11/30/2023) Housing Stability Vital Sign Unable to Pay for Housing in the Last Year: No Number of Times Moved in the Last Year: 0 Homeless in the Last Year: No Family History Family History Problem Relation Name Age of Onset Heart attack Mother 61.00 Heart disease Father Other ([id number]) Brother accident Coronary artery disease Father Diabetes Father Immunization History Immunization History Administered Date(s) Administered Covid-19, Pfizer Bivalent Booster, (Age 12y+), Im, 30 Mcg/0e 03/01/2022 Influenza, High Dose Seasonal, Preservative Free 01/04/2017 Influenza, Unspecified 01/08/2015 Pfizer SARS-CoV-2 Vaccination 04/15/2020, 05/06/2020, 02/02/2021, 09/01/2021 Pneumococcal Conjugate, Unspecified 09/20/2013 Tdap 11/29/2023 Medications Current Medications aspirin, 81 mg, Oral, Daily carvedilol, 6.25 mg, Oral, BID WC enoxaparin, 30 mg, SubCUTAneous, 2 times per day guaiFENesin, 600 mg, Oral, BID insulin glargine, 44 Units, SubCUTAneous, Nightly insulin lispro, 0-12 Units, SubCUTAneous, TID WC insulin lispro, 16 Units, SubCUTAneous, TID WC ipratropium-albuterol, 3 mL, Nebulization, 4x daily mupirocin, 1 Application, Nasal, BID pancrelipase ([id number]), 1 capsule, Oral, TID WC pantoprazole, 40 mg, Oral, q AM polyethylene glycol (PEG) 3350, 17 g, Oral, Daily predniSONE, 40 mg, Oral, Daily pregabalin, 150 mg, Oral, BID tamsulosin, 0.4 mg, Oral, Daily PRN Mediations PRN medications: acetaminophen, dextrose, dextrose, glucagon (rDNA), glucose, naloxone, ondansetron ODT OR ondansetron, senna-docusate sodium IV Drips/Infusions Home Medications Current Outpatient Medications Medication Instructions acetaminophen (TYLENOL) 1,000 mg, 3 times daily Advair Diskus 250-50 MCG/ACT aerosol powder No dose, route, or frequency recorded. albuterol 108 (90 Base) MCG/ACT inhaler 2 puffs, Every 6 hours PRN albuterol 2.5 mg aspirin 81 mg, Daily atorvastatin (LIPITOR) 80 mg, Daily carvedilol (COREG) 6.25 mg, Oral, 2 times daily with meals cholestyramine (Questran) 4 g packet 1 packet, 3 times daily with meals cilostazol (PLETAL) 50 mg, 2 times daily dicyclomine (BENTYL) 10 mg, 3 times daily empagliflozin (JARDIANCE) 25 mg, Daily ergocalciferol (VITAMIN D-2) 1.25 mg, Weekly ezetimibe (ZETIA) 10 mg, Nightly famotidine (PEPCID) 20 mg, Daily finasteride (PROSCAR) 5 mg, Daily fluticasone (Flonase) 50 MCG/ACT nasal spray 1 spray, Daily ibuprofen 600 mg, Every 6 hours PRN Incruse Ellipta 62.5 MCG/ACT inhalation 1 puff, Daily insulin glargine (LANTUS) 48 Units, Daily Insulin Lispro (HUMALOG) 16 Units, 3 times daily Menthol, Topical Analgesic, (Biofreeze Cool The Pain) 4 % gel Every 12 hours PRN metFORMIN (GLUCOPHAGE) 500 mg, 2 times daily with meals nabumetone (RELAFEN) 750 mg, 2 times daily nitroglycerin (NITROSTAT) 0.4 mg, Every 5 min PRN nystatin (Mycostatin) cream No dose, route, or frequency recorded. pancrelipase, Dle-Elyo-Lybt, (Creon) 64360-98870 units capsule 3 times daily with meals pregabalin (LYRICA) 150 mg, Oral, 2 times daily tamsulosin (FLOMAX) 0.4 mg, Daily tiotropium (Spiriva) 18 MCG inhalation capsule 1 capsule, Daily Allergies Allergies Allergen Reactions Penicillins Other reaction(s): Other (See Comments), Unknown unknown Tetracyclines & Related Other reaction(s): Other (See Comments), Unknown unknown Review of Systems General Denies any fever or chills HEENT Denies any diplopia, tinnitus or vertigo Resp See HPI Cardiac Denies any chest pain, palpitations, claudication or edema GI Denies any melena, hematochezia, hematemesis or pyrosis Denies any frequency, urgency, hesitancy or incontinence Heme Denies bruising or bleeding easily Neuro Denies any focal motor or sensory deficits Psychiatric Denies anxiety, depression, suicidal ideation Skin Denies rashes, itching, open sores Vitals height is 6' (1.829 m) and weight is 296 lb 11.2 oz (135 kg). His temporal temperature is 36.1 C (97 F). His blood pressure is 127/62 and his pulse is 60. His respiration is 17 and oxygen saturation is 95%. Body mass index is 40.24 kg/m . 24 Hour intake and output Intake/Output Summary (Last 24 hours) at 06/02/2024 0981 Last data filed at 06/02/2024 0847 Gross per 24 hour Intake 1550 ml Output 3300 ml Net -1750 ml @[id number]@ Physical Exam General appearance: Sleepy easily awake on 4 L a cannula saturating adequate HEENT: Normocephalic, atraumatic. Pupils equil and round, External ear normal, conjunctivae normal, negative for scleral icterus. No congestion. Neck: ROM normal, supple, trachea midline. No lymphadenopathy Cardiovascular: Regular rate and rhythm. Heart sounds normal. Negative for murmur, friction rub or gallop. Pulmonary: Effort normal, Decreased breath sound bilaterally No wheezing no rales appreciated No pleural rub Abdomen: Soft, non distended, non tender, bowel sounds normal. No palpable masses. No Hepatomegaly Musculoskeletal: ROM normal, Negative for swelling, tenderness or deformity. Skin: Warm, dry. Skin color, texture, turgor normal. Negative for rashes or lesions. Extremities: No clubbing, cyanosis, Trace bilateral extremity edema present Neurological: No focal deficits. Alert and oriented x 2. Cranial nerves II-XII are intact Lymphatics: No cervical or axillary lymphadenopathy Psychiatric: Mood, behavior, thought content normal. Cooperative with exam. Labs CBC Results from last 7 days Lab Units 06/02/24 0154 WBC AUTO 10*3/uL 7.5 HEMOGLOBIN g/dL 8.9* HEMATOCRIT % 29.6* PLATELETS 10*3/uL 206 BMP: Results from last 7 days Lab Units 06/02/24 0154 06/01/24 0410 05/31/24 0405 SODIUM mmol/L 136 133* 139 POTASSIUM mmol/L 4.6 4.8 4.8 CHLORIDE mmol/L 106 105 111* CO2 mmol/L 24 22* 20* BUN mg/dL 50* 62* 58* CREATININE mg/dL 1.20 1.43* 1.58* GLUCOSE mg/dL 224* 253* 194* CALCIUM mg/dL 8.3* 8.5* 8.1* ABG: Results from last 7 days Lab Units 05/30/24 1345 05/30/24 0937 PH ART 7.327* 7.290* PCO2 ART mm Hg 42.5 50.7* PO2 ART mm Hg 85.7 64.1* HCO3 ART mmol/L 21.8 23.8 O2 SAT ART % 95.9* 89.5* BASE EXC ART mmol/L -4.0* -3.0 SOURCE OF OXYGEN Bi-PAP Heated High Flow LIVER PROFILE Results from last 7 days Lab Units 05/31/24 0405 ALK PHOS U/L 69 BILIRUBIN TOTAL mg/dL 0.2 BILIRUBIN DIRECT mg/dL 0.1 PROTEIN TOTAL g/dL 5.4* ALT U/L 16 AST U/L 22 INR PTT No results found for: "PTT" Cultures NTD Sleep History History of obstructive sleep apnea noncompliant with PAP therapy Radiology Exam Date/Time: 05/31/2024 03:40 Procedure: XR CHEST 1 VIEW Ordering Provider: WILLIS RYAN Reason For Exam: respir failure EXAM TYPE: RADIOLOGIC EXAMINATION, CHEST, SINGLE VIEW FRONTAL (CXR SINGLE VIEW) EXAM DATE AND TIME: 05/31/2024 3:40 AM EST INDICATION: Respiratory distress COMPARISON: 05/30/2024 TECHNIQUE: A single portable frontal view of the thorax was obtained and reviewed. Special views: None. IMPRESSION: 1. Lines/Tubes/Devices/Hardware: Leads noted. Please confirm position and function of any catheters or attempted catheters clinically. 2. Lungs: Persistent infiltrate densities. No interval major volume loss.. Consider follow-up with PA and lateral chest for persistent symptoms. 3. Pleura: No significant effusion. No significant pneumothorax. 4. Heart and mediastinum: No convincing acute process. 5. Upper abdomen: No acute process seen. 6. Thorax:No acute bony process Assessment & Recommendations -Acute hypoxic hypercapnic respiratory failure requiring NIV/ICU admission currently on 4 L and BiPAP -Acute exacerbation of COPD -Obstructive sleep apnea morbid obesity likely underlying obesity hypoventilation syndrome noncompliant with PAP therapy -Continue tobacco use -Questionable left lower lobe infiltrate was on antibiotics currently off antibiotics per ICU -Coronary artery disease status post CABG Patient currently on 4 L a cannula titrate FiO2 to keep saturation 92 percentile Resume BiPAP importance of compliance with the PAP therapy was discussed with the patient Tapering dose of his steroid Bronchodilator therapy maximization Resume ICS and LABA as the patient was on Advair prior to admission DVT prophylaxis Weight loss strongly recommended however appears that it is difficult as patient restricted mobility Patient is off antibiotics as per ICU transfer Advance Directive: Full Code Case discussed with nurse and patient Questions and concerns addressed. Total time 60 minutes on this day of encounter includes counseling, coordinating plan of care, record and documentation review before and after visit including documentation and time not explicitly included on EMR time stamp for accounting for open encounter. Portions of the information within this encounter were entered using an electronic dictation system. Best attempts were made to edit/proofread the information prior to note completion. Despite the review of information, some errors may remain. If there are questions related to the information contained within the note please contact the signing provider directly. Images from the original note were not included. Pharmacy Managed Vancomycin Dosing Service Consult Note Consult Date: 05/30/24 Patient Name: James Reyes Allergies: Penicillins and Tetracyclines & related Age: 68 y.o. Sex: male Estimated body mass index is 40.69 kg/m as calculated from the following: Height as of this encounter: 1.829 m (6'). Weight as of this encounter: 136 kg (300 lb). Lab Results Component Value Date CREATININE 1.28 (H) 05/30/2024 CREATININE 1.01 03/08/2024 BUN 44 (H) 05/30/2024 BUN 22 (H) 03/08/2024 WBC 14.1 (H) 05/30/2024 WBC 6.4 03/08/2024 Calculated CrCl: 73 mL/min Consulted By: Dr. Willis Infectious Diagnosis: sepsis (AUC Goal 400-600 mg/L*hr) Antimicrobials: Patient recently received an antibiotic (last 12 hours) Date/Time Action Medication Dose Rate 05/30/24 1050 New Bag vancomycin (Vancocin) 2500 mg in 0.9% sodium chloride 500 mL IVPB (compounded premix) 2,500 mg 166.7 mL/hr 05/30/24 0938 New Bag meropenem (Merrem) 2,000 mg in sodium chloride 0.9 % 100 mL IVPB 2,000 mg 200 mL/hr Assessment/Plan: Doses, serum creatinine, and vancomycin levels interfaced automatically to [employer] and data has been analyzed and interpreted. Start Vancomycin 1000 mg Q 12 hours based on patient age, weight, renal function, and infectious diagnosis (7.4 mg/kg). Predicted AUC = 549 mg/L*hr (goal 400-600 mg/L*hr) Will assess level on 05/31/24 and adjust as appropriate. Trend serum creatinine. Orders placed. Thank you for this consult. Please secure text or call with questions. DATE: 05/30/24 TIME: 12:11 PM Bobbi Gasca RPh Pharmacist Available via Secure Chat Internal Medicine: MICU Initial Consult James Reyes : 1955(68 y.o.) Date: May 30, 2024 Attending: Dr. Willis Assessment and Plan: ASSESSMENT: Severe sepsis Acute hypoxemic respir failure Respir acidosis AECOPD MINERVA JESSIKA NAGMA Leukocytosis T2DM uncontrolled w/ hyperglycemia Anemia (chronic, normocytic) CAD w/ h/o CABG 2014. Body mass index is 40.69 kg/m . Morbid obesity PLAN: Admit to MICU. Complete infectious w/up. Continue broad Abx = cefepime and vanc. Follow for culture results. Change HHFNC to NIV as likely a combo of AECOPD and slight pulm vasc congestion. Continue scheduled and PRN nebs. Continue steroids. Redose laxix as needed Repeat ABG in 2 hrs. Repeat CXR in AM. Avoid nephro tox agents as able. Support hemodynamics and euvolemia. Daily BMP. Use home lantus at bedtime. Regular SSI q6hr while nPO FSBS q6hrs. Follow cell counts daily. CORE MEASURE DATA SIRS Criteria Sepsis Criteria Severe Sepsis Criteria Septic Shock Criteria Must meet 2: [] Temperature > 100.4 F (38 C) or < 96.8 F (36 C) [] HR > 90 [] RR > 20 [] WBC > 12 or < 4 or 10% bands Must be confirmed or suspected to move forward with diagnosis of sepsis. Must select at least one: [] Bacterial Infection Confirmed or Suspected. [] Viral Infection Confirmed or Suspected. [] No infection present. Patient does not meet criteria for Sepsis. Must meet 1: [] Lactate > 2 or [] Signs of Organ Dysfunction: - SBP < 90 or MAP < 65 - Altered mental status - Creatinine > 2 or increased from baseline - Urine Output < 0.5 ml/kg/hr - Bilirubin > 2 - INR > 1.5 - Platelets < 100,000 - Acute Respiratory Failure as evidenced by new need for NIPPV or mechanical ventilation [] No criteria met for Severe Sepsis. Must meet 1: [] Lactate = or > 4 or [] SBP < 90 or MAP < 65 for at least two readings in the first hour after fluid bolus administration [] No criteria met for Septic Shock. Patient Vitals from 05/30/24 2301 to 05/31/24 0000 BP Pulse Resp SpO2 05/30/24 2303 132/69 84 13 97 % 05/30/24 2334 -- 84 12 97 % Recent Labs 05/30/24 0914 05/31/24 0405 WBC 14.1* 11.4* LACTATE 1.4 -- CREATININE 1.28* 1.58* BILITOT -- 0.2 PLT 190 194 Sepsis Identified at 1128 hours. Fluid Resuscitation Rational: at least 30mL/kg based on entered actual body weight at time of triage Infection Source: Unknown Reassessment Exam: Not applicable. Patient does not have Septic Shock. Haydee Willis DO Analgesics: tylenol Sedation: no Pressors: no Vent: no Diet: NPO with meds and sip DVT: lovenox GI: PPI ABx: cefepime vanc Lines/Invasive Equip: PIV Consultants: none DISPO: MICU In my professional opinion this pt is critically ill based on the aforementioned assessment/plan: Yes Lifethreatening disease process: Yes Unstable organ failure: No Active vent mgmt: No Active management of life support system(s): No Subjective: Chief Complaint: Chief Complaint Patient presents with Vomiting Shortness of Breath AdmitDate = 05/30/2024 LOS: 0 HPI: 68 y/o M w/ Hx below p/w SOB from SNF/rehab. Reported to be hypoxemic into 70s for EMS. Given neb by EMS. Placed on NRB with improvement into 90s. He has receved lasix, neb, abx and steroids in the ER. MICU consulted for new O2 requirement and acidosis. + sick contacts at home. Past Medical History: Diagnosis Date Acute kidney injury (HCC) 09/11/2015 CAD in [place] artery 08/08/2017 COPD (chronic obstructive pulmonary disease) (HCC) Developmental disorder Diabetes mellitus (HCC) Esophageal reflux Gastritis see EGD on 03/29/2016 GERD (gastroesophageal reflux disease) Hyperlipidemia IBS (irritable bowel syndrome) Mixed Obesity Osteoarthritis Pain management Plantar fasciitis, bilateral Unspecified sleep apnea Urinary retention Past Surgical History: Procedure Laterality Date CHOLECYSTECTOMY 03/29/20162010 COLONOSCOPY 05/23/2017 COLONOSCOPY 03/29/2016, repeat in 10 years, Dr. Ness, normal except internal hemorrhoid COLONOSCOPY N/A 07/18/2022 Performed by David Chen MD at [facility] OR CORONARY ARTERY BYPASS GRAFT FOOT SURGERY Left 2015 HEMORRHOID SURGERY 1997 INNER EAR SURGERY tube placement in ears LAYERED WOUND CLOSURE N/A 10/16/2017 sternal wound debridment and closure with wound vac OTHER SURGICAL HISTORY 10/24/2017 I&D sternal wound with flap OTHER SURGICAL HISTORY punching bag removal THYROID SURGERY nodule removal 2010 TONSILLECTOMY (HISTORICAL) UPPER GASTROINTESTINAL ENDOSCOPY 04/01/2016 gastritis, duodentitis WISDOM TOOTH EXTRACTION Family History Problem Relation Name Age of Onset Heart attack Mother 61.00 Heart disease Father Other ([id number]) Brother accident Coronary artery disease Father Diabetes Father Social History Socioeconomic History Marital status: Single Spouse name: Not on file Number of children: Not on file Years of education: Not on file Highest education level: Not on file Occupational History Not on file Tobacco Use Smoking status: Every Day Current packs/day: 1.00 Average packs/day: 1 pack/day for 51.1 years (51.1 ttl pk-yrs) Types: Cigarettes Start date: 04/28/1973 Smokeless tobacco: Never Vaping Use Vaping status: Never Used Substance and Sexual Activity Alcohol use: No Alcohol/week: 0.0 standard drinks of alcohol Drug use: No Comment: caffeine use: decaf coffee sometimes Sexual activity: Not on file Comment: single Other Topics Concern Not on file Social History Narrative Not on file Social Drivers of Health Financial Resource Strain: Not on file Food Insecurity: Not on file Transportation Needs: No Transportation Needs (11/30/2023) PRAPARE - Transportation Lack of Transportation (Medical): No Lack of Transportation (Non-Medical): No Physical Activity: Not on file Stress: Not on file Social Connections: Not on file Intimate Partner Violence: Not At Risk (11/30/2023) Humiliation, Afraid, Rape, and Kick questionnaire Fear of Current or Ex-Partner: No Emotionally Abused: No Physically Abused: No Sexually Abused: No Housing Stability: Low Risk (11/30/2023) Housing Stability Vital Sign Unable to Pay for Housing in the Last Year: No Number of Times Moved in the Last Year: 0 Homeless in the Last Year: No Allergies Allergen Reactions Penicillins Other reaction(s): Other (See Comments), Unknown unknown Tetracyclines & Related Other reaction(s): Other (See Comments), Unknown unknown Prior to Admission medications Medication Sig Start Date End Date Taking? Authorizing Provider acetaminophen (Tylenol) 325 MG tablet Take 1,000 mg by mouth 3 times daily. 07/28/21 Historical Provider, Advair Diskus 250-50 MCG/ACT aerosol powder 01/21/23 Historical Provider, albuterol (2.5 MG/3ML) 0.083% nebulizer solution Inhale 2.5 mg. 07/28/21 Historical Provider, albuterol 108 (90 Base) MCG/ACT inhaler Inhale 2 puffs every 6 hours as needed. 11/24/16 Historical Provider, aspirin 81 MG chewable tablet Chew 81 mg daily. 08/26/21 Historical Provider, atorvastatin (Lipitor) 80 MG tablet Take 80 mg by mouth in the morning. 07/29/21 Historical Provider, carvedilol (Coreg) 6.25 MG tablet Take 1 tablet (6.25 mg) by mouth in the morning and 1 tablet (6.25 mg) in the evening. Take with meals. Patient taking differently: Take 3.125 mg by mouth 2 times daily (with meals). 02/22/23 Otkillian Corcoran MD cholestyramine (Questran) 4 g packet Take 1 packet by mouth in the morning and 1 packet at noon and 1 packet in the evening. Take with meals. Historical Provider, cilostazol (Pletal) 50 MG tablet Take 50 mg by mouth 2 times daily. Historical Provider, dicyclomine (Bentyl) 10 MG capsule Take 10 mg by mouth 3 times daily. 02/01/23 Historical Provider, empagliflozin (Jardiance) 25 MG Take 25 mg by mouth daily. Historical Provider, ergocalciferol (Vitamin D-2) 1.25 MG (78196 UT) capsule Take 1.25 mg by mouth 1 (one) time per week. Every Monday Historical ProviderMD ezetimibe (Zetia) 10 MG tablet Take 10 mg by mouth Nightly. 08/26/21 Historical ProviderMD famotidine (Pepcid) 20 MG tablet Take 20 mg by mouth in the morning. 08/26/21 Historical ProviderMD finasteride (Proscar) 5 MG tablet Take 5 mg by mouth in the morning. 08/26/21 Historical ProviderMD fluticasone (Flonase) 50 MCG/ACT nasal spray Administer 1 spray into each nostril daily. Shake gently. Before first use, prime pump. After use, clean tip and replace cap. Historical ProviderMD ibuprofen 600 MG tablet Take 600 mg by mouth every 6 hours as needed for mild pain (1-3). Historical ProviderMD Incruse Ellipta 62.5 MCG/ACT inhalation Inhale 1 puff daily. 04/29/24 Historical ProviderMD insulin glargine (Lantus) 100 UNIT/ML injection Inject 48 Units under the skin in the morning. 08/26/21 Historical ProviderMD Insulin Lispro (Humalog) 100 UNIT/ML solution injection Inject 16 Units under the skin in the morning and 16 Units at noon and 16 Units in the evening. 08/26/21 Historical Provider, Menthol, Topical Analgesic, (Biofreeze Cool The Pain) 4 % gel Apply topically every 12 hours as needed (lower back). Historical ProviderMD metFORMIN (Glucophage) 500 MG tablet Take 500 mg by mouth 2 times daily (with meals). Historical Provider, nabumetone (Relafen) 500 MG tablet Take 750 mg by mouth 2 times daily. Historical Provider, nitroglycerin (Nitrostat) 0.[address] 0.4 mg under the tongue every 5 minutes as needed for chest pain. Historical ProviderMD nystatin (Mycostatin) cream 11/08/22 Historical Provider, pancrelipase, Txe-Jwnv-Heru, (Creon) 99705-23823 units capsule Take by mouth 3 times daily (with meals). Historical ProviderMD pregabalin (Lyrica) 150 MG capsule Take 1 capsule (150 mg) by mouth 2 times daily. 12/05/23 Romario Munoz MD tamsulosin (Flomax) 0.4 MG 24 hr capsule Take 0.4 mg by mouth daily. 05/21/20 Historical Provider, tiotropium (Spiriva) [address] 1 capsule into inhaler and inhale in the morning. 2 puffs. Patient not taking: Reported on 05/13/2024 Historical Provider, Objective: VITALS: BP 110/61 (BP Location: Left arm, Patient Position: Lying) Pulse 104 Temp 36.7 C (98 F) (Oral) Resp 18 Ht 1.829 m (6') Wt 136 kg (300 lb) SpO2 98% BMI 40.69 kg/m CURRENT PULSE OXIMETRY: SpO2: 98 % Oxygen Delivery - O2 Flow Rate (L/min): 12 L/min Review of Systems All other systems reviewed and are negative. Physical Exam Vitals and nursing note reviewed. Constitutional: General: He is awake. He is not in acute distress. Appearance: He is morbidly obese. He is ill-appearing. He is not toxic-appearing or diaphoretic. Interventions: Nasal cannula in place. HENT: Head: Normocephalic and atraumatic. Right Ear: External ear normal. Left Ear: External ear normal. Nose: Nose normal. Mouth/Throat: Mouth: Mucous membranes are moist. Eyes: General: Lids are normal. No scleral icterus. Extraocular Movements: Extraocular movements intact. Conjunctiva/sclera: Conjunctivae normal. Right eye: Right conjunctiva is not injected. Left eye: Left conjunctiva is not injected. Neck: Trachea: Trachea normal. No tracheostomy or tracheal deviation. Cardiovascular: Rate and Rhythm: Normal rate and regular rhythm. Pulses: Radial pulses are 2+ on the right side and 2+ on the left side. Heart sounds: Normal heart sounds. Musculoskeletal: Right lower leg: Edema present. Left lower leg: Edema present. Neurological: Mental Status: He is alert. Psychiatric: Behavior: Behavior is cooperative. [facility] within last 24 hours- BMP: Recent Labs 05/30/24 0914 NA 139 K 4.8 CL 109* CO2 20* BUN 44* CREATININE 1.28* CALCIUM 7.8* LFTS:No results for input(s): "AST", "ALT", "PROT", "BILITOT", "ALKPHOS", "LIPASE" in the last 72 hours. No lab exists for component: "LABALBU", "BU" Glucose: Recent Labs 05/30/24 0914 GLUCOSE 284* Procal: No results for input(s): "PROCAL" in the last 72 hours. CBC: Recent Labs 05/30/24 0914 05/30/24 0937 WBC 14.1* -- HGB 10.6* 11.3* HCT 34.7* -- PLT 190 -- MCV 94.8 -- RDW 15.5* -- ABGs: Recent Labs 05/30/24 0937 PHART 7.290* [id number] 50.7* PO2ART 64.1* AXQ7BEV 23.8 [id number] 89.5* Lactic Acid: No lab exists for component: "LACTA" INR: No results for input(s): "INR" in the last 72 hours. Cardiac Injury Profile: No results for input(s): "CKTOTAL", "CKMB", "TROPONINI" in the last 72 hours. Labs in Last 3 months: Lab Results Component Value Date TSH 1.209 11/30/2023 VITD25 24 (L) 12/02/2023 INR 1.0 11/29/2023 Microbiology- Urine Cx: No components found for: LABURIN Blood Cx: No components found for: BC Sputum Cx: No components found for: "RESPCULTURE" Gram Stain: No results found for: LABGRAM PNA PCR: No components found for: PNPCRPNL COVID19: No results found for: COVID19 Legionella Ag: No components found for: "LEGIONELLAANTIGEN" Strep Ag: No lab exists for component: "STREPNEUMAGU" Imaging- Reviewed in PACS CRITICAL CARE TIME - 35min Total time caring for this patient including direct patient contact, review of data including imaging and labs, discussions with other team members and physicians, excluding procedures. documented in this encounter [facility] 06-02-2024 Telephone encounter Note Name of Caller: [facility] Physician requesting Consult: Laura Patient Location (facility name, room, bed number): [facility] Patient Diagnosis/Reason for Consult: Respiratory Failure on Bipap Provider being paged: James Time page was sent: 7:12 Department of provider being paged: Pulmonology Page Content: Inpatient Pulmonary [facility] resp failure on bipap Message sent via Secure Chat [facility] 06-02-2024 Miscellaneous Notes Name of Caller: [facility] Physician requesting Consult: Laura Patient Location (facility name, room, bed number): [facility] Patient Diagnosis/Reason for Consult: Respiratory Failure on Bipap Provider being paged: James Time page was sent: 7:12 Department of provider being paged: Pulmonology Page Content: Inpatient Pulmonary [facility] resp failure on bipap Message sent via Secure Chat documented in this encounter [facility] 06-02-2024 Note Formatting of this n ote might be different from the original. Pt transferred out to [facility] service from icu. [facility] Phone: 06-02-2024 Note Formatting of this n ote might be different from the original. Pt transferred out to [facility] service from icu. [facility] Phone: 06-02-2024 Plan of care note Problem: Knowledge Deficit Goal: Patient/family/caregiver demonstrates understanding of disease process, treatment plan, medications, and discharge instructions Outcome: Progressing Problem: Potential for Compromised Skin Integrity Goal: Skin Integrity is Maintained or Improved Outcome: Progressing Goal: Nutritional status is improving Outcome: Progressing Problem: Urinary Incontinence Goal: Perineal skin integrity is maintained or improved Outcome: Progressing Problem: Respiratory - Adult Goal: Achieves optimal ventilation and oxygenation Outcome: Progressing Problem: Genitourinary - Adult Goal: Absence of urinary retention Outcome: Progressing Goal: Urinary catheter remains patent Outcome: Progressing Problem: Problem Interventions Goal: Promote nutritional intake Outcome: Progressing [facility] 06-01-2024 Plan of care note Problem: Knowledge Deficit Goal: Patient/family/caregiver demonstrates understanding of disease process, treatment plan, medications, and discharge instructions Outcome: Progressing Problem: Potential for Compromised Skin Integrity Goal: Skin Integrity is Maintained or Improved Outcome: Progressing Goal: Nutritional status is improving Outcome: Progressing Problem: Urinary Incontinence Goal: Perineal skin integrity is maintained or improved Outcome: Progressing Problem: Respiratory - Adult Goal: Achieves optimal ventilation and oxygenation Outcome: Progressing Problem: Genitourinary - Adult Goal: Absence of urinary retention Outcome: Progressing Goal: Urinary catheter remains patent Outcome: Progressing Problem: Problem Interventions Goal: Promote nutritional intake Outcome: Progressing [facility] 06-01-2024 Note Problem: Potential f or Compromised Skin Integrity Goal: Nutritional status is improving Outcome: Progressing Problem: Urinary Incontinence Goal: Perineal skin integrity is maintained or improved Outcome: Progressing [facility] 06-01-2024 Plan of care note Problem: Potential for Compromised Skin Integrity Goal: Nutritional status is improving Outcome: Progressing Problem: Urinary Incontinence Goal: Perineal skin integrity is maintained or improved Outcome: Progressing [facility] 05-31-2024 Note Formatting of this n ote might be different from the original. [facility] referral [facility] to [facility] per [facility] request. Await review and response regarding ability to accept. TCC notified. [facility] 05-31-2024 Note Formatting of this n ote might be different from the original. Return referral placed to [facility] per [facility] request. Await review and response regarding ability to accept. TCC notified. [facility] 05-31-2024 Note Return referral plac ed to [facility] via [facility] per TCC request. Await review and response regarding ability to accept. TCC notified. [facility] 05-31-2024 Note Formatting of this n ote might be different from the original. Inpatient status from [facility] with acute hypercapnic resp failure. Admitted to ICU for NIV. Currently requiring high flow oxygen 60% fio2 and 40 liters. Receiving iv antibiotics, iv steroids, scheduled aerosols, and ss insulin coverage. 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 Anticipated discharge plan is to return to [facility] when medically stable. [facility] 05-31-2024 Note Formatting of this n ote might be different from the original. Inpatient status from [facility] with acute hypercapnic resp failure. Admitted to ICU for NIV. Currently requiring high flow oxygen 60% fio2 and 40 liters. Receiving iv antibiotics, iv steroids, scheduled aerosols, and ss insulin coverage. 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 Anticipated discharge plan is to return to [facility] when medically stable. [facility] 05-31-2024 Plan of care note Problem: Knowledge Deficit Goal: Patient/family/caregiver demonstrates understanding of disease process, treatment plan, medications, and discharge instructions Outcome: Progressing Problem: Potential for Compromised Skin Integrity Goal: Skin Integrity is Maintained or Improved Outcome: Progressing Goal: Nutritional status is improving Outcome: Progressing Problem: Urinary Incontinence Goal: Perineal skin integrity is maintained or improved Outcome: Progressing Problem: Respiratory - Adult Goal: Achieves optimal ventilation and oxygenation Outcome: Progressing Problem: Genitourinary - Adult Goal: Absence of urinary retention Outcome: Progressing Goal: Urinary catheter remains patent Outcome: Progressing [facility] 05-30-2024 Note Patient currently on NIV, smoking cessation counseling held at this time. [facility] 05-30-2024 History and physical note CCM consult on 05/30/24 serves as H&P [facility] 05-30-2024 Note CCM consult on 05/30 serves as H&P [facility] 05-30-2024 History and physical note CCM consult on 05/30/24 serves as H&P documented in this encounter [facility] 05-30-2024 Consult note Formatting of th is note is different from the original. Images from the original note were not included. Pharmacy Managed Vancomycin Dosing Service Consult Note Consult Date: 05/30/24 Patient Name: James Reyes Allergies: Penicillins and Tetracyclines & related Age: 68 y.o. Sex: male Estimated body mass index is 40.69 kg/m as calculated from the following: Height as of this encounter: 1.829 m (6'). Weight as of this encounter: 136 kg (300 lb). Lab Results Component Value Date CREATININE 1.28 (H) 05/30/2024 CREATININE 1.01 03/08/2024 BUN 44 (H) 05/30/2024 BUN 22 (H) 03/08/2024 WBC 14.1 (H) 05/30/2024 WBC 6.4 03/08/2024 Calculated CrCl: 73 mL/min Consulted By: Dr. Willis Infectious Diagnosis: sepsis (AUC Goal 400-600 mg/L*hr) Antimicrobials: Patient recently received an antibiotic (last 12 hours) Date/Time Action Medication Dose Rate 05/30/24 1050 New Bag vancomycin (Vancocin) 2500 mg in 0.9% sodium chloride 500 mL IVPB (compounded premix) 2,500 mg 166.7 mL/hr 05/30/24 0938 New Bag meropenem (Merrem) 2,000 mg in sodium chloride 0.9 % 100 mL IVPB 2,000 mg 200 mL/hr Assessment/Plan: Doses, serum creatinine, and vancomycin levels interfaced automatically to [employer] and data has been analyzed and interpreted. Start Vancomycin 1000 mg Q 12 hours based on patient age, weight, renal function, and infectious diagnosis (7.4 mg/kg). Predicted AUC = 549 mg/L*hr (goal 400-600 mg/L*hr) Will assess level on 05/31/24 and adjust as appropriate. Trend serum creatinine. Orders placed. Thank you for this consult. Please secure text or call with questions. DATE: 05/30/24 TIME: 12:11 PM Bobbi Gasca RPh Pharmacist Available via Secure Chat [facility] 05-30-2024 Emergency department Note Report given to JOB CHANGE CREW MEMBER [facility] 05-30-2024 Emergency department Note Report given to JOB CHANGE CREW MEMBER [facility] INTENSIVE CARE UNIT ICU 2 EMERGENCY DEPARTMENT ENCOUNTER Pt Name: James Reyes Birthdate 1955 Date of evaluation: 05/30/2024 Provider: Arsh Mar MD CHIEF COMPLAINT Chief Complaint Patient presents with Vomiting Shortness of Breath HISTORY OF PRESENT ILLNESS (Location/Symptom, Timing/Onset,Context/Setting, Quality, Duration, Modifying Factors, Severity) Note limiting factors. James Reyes is a 68 y.o. male who presents to the emergency department patient seen along with advanced practice provider. Presented with vomiting shortness of breath. Brought in via squad [facility]. He is normally not on oxygen. HPI Historian is patient Nurse's notes for past medical history, surgical history, social history were reviewed. Medications and allergies reviewed. PAST MEDICAL HISTORY Past Medical History: Diagnosis Date Acute kidney injury (HCC) 09/11/2015 CAD in [place] artery 08/08/2017 COPD (chronic obstructive pulmonary disease) (HCC) Developmental disorder Diabetes mellitus (HCC) Esophageal reflux Gastritis see EGD on 03/29/2016 GERD (gastroesophageal reflux disease) Hyperlipidemia IBS (irritable bowel syndrome) Mixed Obesity Osteoarthritis Pain management Plantar fasciitis, bilateral Unspecified sleep apnea Urinary retention SURGICALHISTORY Past Surgical History: Procedure Laterality Date CHOLECYSTECTOMY 03/29/20162010 COLONOSCOPY 05/23/2017 COLONOSCOPY 03/29/2016, repeat in 10 years, Dr. Ness, normal except internal hemorrhoid COLONOSCOPY N/A 07/18/2022 Performed by David Chen MD at [facility] OR CORONARY ARTERY BYPASS GRAFT FOOT SURGERY Left 2015 HEMORRHOID SURGERY 1997 INNER EAR SURGERY tube placement in ears LAYERED WOUND CLOSURE N/A 10/16/2017 sternal wound debridment and closure with wound vac OTHER SURGICAL HISTORY 10/24/2017 I&D sternal wound with flap OTHER SURGICAL HISTORY punching bag removal THYROID SURGERY nodule removal 2010 TONSILLECTOMY (HISTORICAL) UPPER GASTROINTESTINAL ENDOSCOPY 04/01/2016 gastritis, duodentitis WISDOM TOOTH EXTRACTION CURRENT MEDICATIONS Current Discharge Medication List CONTINUE these medications which have NOT CHANGED Details acetaminophen (Tylenol) 325 MG tablet Take 1,000 mg by mouth 3 times daily. Advair Diskus 250-50 MCG/ACT aerosol powder albuterol (2.5 MG/3ML) 0.083% nebulizer solution Inhale 2.5 mg. albuterol 108 (90 Base) MCG/ACT inhaler Inhale 2 puffs every 6 hours as needed. aspirin 81 MG chewable tablet Chew 81 mg daily. atorvastatin (Lipitor) 80 MG tablet Take 80 mg by mouth in the morning. carvedilol (Coreg) 6.25 MG tablet Take 1 tablet (6.25 mg) by mouth in the morning and 1 tablet (6.25 mg) in the evening. Take with meals. Qty: 180 tablet, Refills: 3 cholestyramine (Questran) 4 g packet Take 1 packet by mouth in the morning and 1 packet at noon and 1 packet in the evening. Take with meals. cilostazol (Pletal) 50 MG tablet Take 50 mg by mouth 2 times daily. dicyclomine (Bentyl) 10 MG capsule Take 10 mg by mouth 3 times daily. empagliflozin (Jardiance) 25 MG Take 25 mg by mouth daily. ergocalciferol (Vitamin D-2) 1.25 MG (24340 UT) capsule Take 1.25 mg by mouth 1 (one) time per week. Every Monday ezetimibe (Zetia) 10 MG tablet Take 10 mg by mouth Nightly. famotidine (Pepcid) 20 MG tablet Take 20 mg by mouth in the morning. finasteride (Proscar) 5 MG tablet Take 5 mg by mouth in the morning. fluticasone (Flonase) 50 MCG/ACT nasal spray Administer 1 spray into each nostril daily. Shake gently. Before first use, prime pump. After use, clean tip and replace cap. ibuprofen 600 MG tablet Take 600 mg by mouth every 6 hours as needed for mild pain (1-3). Incruse Ellipta 62.5 MCG/ACT inhalation Inhale 1 puff daily. insulin glargine (Lantus) 100 UNIT/ML injection Inject 48 Units under the skin in the morning. Insulin Lispro (Humalog) 100 UNIT/ML solution injection Inject 16 Units under the skin in the morning and 16 Units at noon and 16 Units in the evening. Menthol, Topical Analgesic, (Biofreeze Cool The Pain) 4 % gel Apply topically every 12 hours as needed (lower back). metFORMIN (Glucophage) 500 MG tablet Take 500 mg by mouth 2 times daily (with meals). nabumetone (Relafen) 500 MG tablet Take 750 mg by mouth 2 times daily. nitroglycerin (Nitrostat) 0.[address] 0.4 mg under the tongue every 5 minutes as needed for chest pain. nystatin (Mycostatin) cream pancrelipase, Ygu-Wbda-Alrx, (Creon) 40010-14683 units capsule Take by mouth 3 times daily (with meals). pregabalin (Lyrica) 150 MG capsule Take 1 capsule (150 mg) by mouth 2 times daily. Qty: 30 capsule, Refills: 0 Associated Diagnoses: Pain in both knees, unspecified chronicity tamsulosin (Flomax) 0.4 MG 24 hr capsule Take 0.4 mg by mouth daily. tiotropium (Spiriva) [address] 1 capsule into inhaler and inhale in the morning. 2 puffs. Penicillins and Tetracyclines & related FAMILY HISTORY Family History Problem Relation Name Age of Onset Heart attack Mother 61.00 Heart disease Father Other ([id number]) Brother accident Coronary artery disease Father Diabetes Father SOCIAL HISTORY Social History Socioeconomic History Marital status: Single Tobacco Use Smoking status: Every Day Current packs/day: 1.00 Average packs/day: 1 pack/day for 51.1 years (51.1 ttl pk-yrs) Types: Cigarettes Start date: 04/28/1973 Smokeless tobacco: Never Vaping Use Vaping status: Never Used Substance and Sexual Activity Alcohol use: No Alcohol/week: 0.0 standard drinks of alcohol Drug use: No Comment: caffeine use: decaf coffee sometimes Social Drivers of Health Transportation Needs: No Transportation Needs (11/30/2023) PRAPARE - Transportation Lack of Transportation (Medical): No Lack of Transportation (Non-Medical): No Intimate Partner Violence: Not At Risk (11/30/2023) Humiliation, Afraid, Rape, and Kick questionnaire Fear of Current or Ex-Partner: No Emotionally Abused: No Physically Abused: No Sexually Abused: No Housing Stability: Low Risk (11/30/2023) Housing Stability Vital Sign Unable to Pay for Housing in the Last Year: No Number of Times Moved in the Last Year: 0 Homeless in the Last Year: No SCREENINGS PHYSICAL EXAM (up to 7 for level 4, 8 or more for level 5) @EDTRIAGEVSS@ Appropriate PPE including n 95, gown, gloves, goggles where worn when appropriate with this patient. Physical Exam Heart is regular. Lungs coarse breath sounds throughout. In respiratory distress DIAGNOSTIC RESULTS RADIOLOGY: Interpretation per the Radiologist below, if availableat the time of this note: XR chest 1 view Final Result FINDINGS AND IMPRESSION: SUPPORT DEVICES: EKG leads OSSEOUS STRUCTURES: Unremarkable. HEART AND MEDIASTINUM: The cardiomediastinal silhouette appears unchanged from the prior exam. LUNGS AND PLEURA: There is pulmonary venous congestion and interstitial edema. No consolidation. Suspected nodular density overlying the right lateral midlung. Recommend either nonemergent CT for further evaluation or short-term radiographic follow-up. No sizable pleural effusion. Report Dictated on Electronically Signed By: Jimbo Voss MD Electronically Signed Date/Time: 05/30/2024 9:11 AM EST ED BEDSIDE ULTRASOUND: Performed by ED Physician - none LABS: Labs Reviewed NT PRO BNP - Abnormal Result Value NT PRO BNP 533 (*) BASIC METABOLIC PANEL - Abnormal SODIUM 139 POTASSIUM 4.8 CHLORIDE 109 (*) CARBON DIOXIDE 20 (*) UREA NITROGEN 44 (*) CREATININE 1.28 (*) GLUCOSE 284 (*) CALCIUM 7.8 (*) ANION GAP 10 eGFR 61.3 CBC WITH AUTO DIFFERENTIAL - Abnormal Auto WBC 14.1 (*) RBC 3.66 (*) Hemoglobin 10.6 (*) Hematocrit 34.7 (*) MCV 94.8 MCH 29.0 MCHC 30.5 RDW 15.5 (*) Platelets 190 MPV 10.6 BLOOD GAS ARTERIAL - Abnormal pH, Arterial 7.290 (*) pCO2, Arterial 50.7 (*) pO2, Arterial 64.1 (*) HCO3, Arterial 23.8 O2 Sat, Arterial 89.5 (*) Base Excess, Arterial -3.0 CO2 Total 25.4 Hgb, blood gas 11.3 (*) Source Of Oxygen Heated High Flow D-DIMER,QUANTITATIVE - Abnormal D-DIMER, INNOVANCE 0.58 (*) Narrative: Innovance D-Dimer values of <0.50 mg/L FEU can be used in combination with a pre-test probability model (e.g. Well's) to exclude pulmonary embolism (PE) disease, as well as an aid in the diagnosis of deep vein thrombosis (DVT). MANUAL DIFFERENTIAL - Abnormal Adjusted WBC 14.1 (*) Neutrophils % 83 (*) Bands % 7 (*) Lymphocytes % 2 (*) Monocytes % 8 Absolute Neutrophil Count 12.7 (*) Segs Absolute 12.7 (*) Bands Absolute 1.0 (*) Lymphocytes Absolute 0.3 (*) Monocytes Absolute 1.1 (*) Anisocytosis Slight (*) Polychromasia Slight (*) Ovalocytes Slight (*) WBC Morphology Normal PLT Morphology Normal Total Counted 101 Neutrophils Manual 84 Lymphocytes Manual 2 Monocytes Manual 8 Bands Manual 7 Differential Method Manual differential performed POCT GLUCOSE METER UNSOLICITED RESULTS - Abnormal Glucose 247 (*) Narrative: Performed by: [facility], [address] [place] [id number] CLIA ID: [id number] SARS-COV-2, FLU A/B, AND RSV COMBO - Normal SARS-CoV-2 Not Detected Respiratory Syncytial Virus Not Detected Influenza A Not Detected Influenza B Not Detected Narrative: Methodology: real-time, RT-PCR The SARS-CoV-2, Flu A/B, and RSV Combo assay is intended for in vitro diagnostic use under the FDA Emergency Use Authorization (EUA). This test has not been FDA cleared or approved. In compliance with this authorization, please visit www.fda.gov/media/311871/download or www.fda.gov/media/974281/download to access the applicable information sheets. LACTIC ACID WITH REFLEX - Normal LACTIC ACID 1.4 HIGH SENSITIVITY TROPONIN, SERIAL BASELINE - Normal Troponin HS Serial Baseline 13 HIGH SENSITIVITY TROPONIN, SERIAL, SECOND TEST - Normal 2h Troponin HS (Serial 2nd Troponin) 17 BLOOD CULTURE BLOOD CULTURE RESPIRATORY PATHOGENS PANEL BY PCR LEGIONELLA AND STREPTOCOCCUS URINE ANTIGEN, ORDERABLE Narrative: The following orders were created for panel order Legionella and Streptococcus Urine Antigen. Procedure Abnormality Status --------- ------ Legionella and Streptoco...[[id number]] Urine Hold Cup[[id number]] Please view results for these tests on the individual orders. MRSA BY PCR LEGIONELLA AND STREPTOCOCCUS URINE ANTIGEN BLOOD GAS ARTERIAL HIGH SENSITIVITY TROPONIN, SERIAL, THIRD TEST COMPLETE URINALYSIS WITH REFLEX TO CULTURE Narrative: The following orders were created for panel order Complete Urinalysis with reflex to Culture. Procedure Abnormality Status --------- ------ Complete Urinalysis[[id number]] Please view results for these tests on the individual orders. URINE HOLD CUP COMPLETE URINALYSIS All other labs were within normal range or not returned as of thisdictation. EMERGENCYDEPARTMENT COURSE and DIFFERENTIAL DIAGNOSIS/MDM: Vitals: Vitals: 05/30/24 1030 05/30/24 1100 05/30/24 1115 05/30/24 1200 BP: 126/71 124/61 124/61 (!) 99/45 BP Location: Left arm Left arm Patient Position: Lying Lying Pulse: 103 105 105 102 Resp: 19 14 Temp: 36.4 C (97.6 F) TempSrc: Oral SpO2: 96% (!) 90% 99% Weight: Height: Medical Decision Making Problems Addressed: Acute hypercapnic respiratory failure (HCC): complicated acute illness or injury Amount and/or Complexity of Data Reviewed Labs: ordered. Radiology: ordered. ECG/medicine tests: ordered. Risk Prescription drug management. Decision regarding hospitalization. EMERGENCY DEPARTMENT COURSE and DIFFERENTIAL DIAGNOSIS/MDM: Vitals: Vitals: 05/30/24 1030 05/30/24 1100 05/30/24 1115 05/30/24 1200 BP: 126/71 124/61 124/61 (!) 99/45 BP Location: Left arm Left arm Patient Position: Lying Lying Pulse: 103 105 105 102 Resp: 19 14 Temp: 36.4 C (97.6 F) TempSrc: Oral SpO2: 96% (!) 90% 99% Weight: Height: Medical Decision Making: He is acidotic with pCO2 of 50.7. 11,000 white blood cell count. Elevated creatinine BUN. Patient was given breathing treatment steroids. Given meropenem and vancomycin. Blood cultures were obtained. Patient has a lactic acid of 1.4. Chest x-ray per my interpretation shows vascular congestion. Patient was given [address] Willis ICU he is khushi accept the patient and will put him on noninvasive. COVID influenza is negative. Further details please see DERICK note. Age-adjusted D-dimer is negative. Patient has improved he is awake and alert improving on the high flow oxygen but is starting to retain so that is why Dr. Willis is gone except him and place him on NIV but does not require intubation at this time. EKG per my interpretation sinus tachycardia left anterior fascicular block borderline T wave abnormalities laterally. ED Medications managed: Medications vancomycin (Vancocin) 2500 mg in 0.9% sodium chloride 500 mL IVPB (compounded premix) (2,500 mg IntraVENous New Bag 05/30/24 1050) mupirocin (Bactroban) 2 % ointment 1 Application (has no administration in time range) naloxone (Narcan) injection 0.4 mg (has no administration in time range) ondansetron ODT (Zofran-ODT) disintegrating tablet 4 mg (has no administration in time range) Or ondansetron (Zofran) injection 4 mg (has no administration in time range) enoxaparin (Lovenox) syringe 30 mg (has no administration in time range) ipratropium-albuterol (Duo-Neb) 0.5-2.5 mg/3 mL nebulizer solution 3 mL (3 mL Nebulization Given 05/30/24 1226) guaiFENesin (Mucinex) 12 hr tablet 600 mg (has no administration in time range) pantoprazole (ProtoNix) EC tablet 40 mg (has no administration in time range) acetaminophen (Tylenol) tablet 1,000 mg (has no administration in time range) polyethylene glycol (PEG) 3350 (Miralax) packet 17 g (has no administration in time range) senna-docusate sodium (Senokot-S) 8.6-50 MG tablet 1 tablet (has no administration in time range) insulin glargine (Lantus) injection 44 Units (has no administration in time range) insulin regular (HumuLIN R,NovoLIN R) injection 0-12 Units (has no administration in time range) pregabalin (Lyrica) capsule 150 mg (has no administration in time range) pancrelipase (Gcq-Glyk-Yjcf) (Creon) 83114-830877 units per capsule 1 capsule (has no administration in time range) tamsulosin (Flomax) 24 hr capsule 0.4 mg (has no administration in time range) carvedilol (Coreg) tablet 6.25 mg (has no administration in time range) aspirin EC tablet 81 mg (has no administration in time range) glucose oral gel 15 g (has no administration in time range) dextrose 50 % solution 12.5 g (has no administration in time range) glucagon (human recombinant) injection 1 mg (has no administration in time range) dextrose 5 % infusion (has no administration in time range) cefepime (Maxipime) 2,000 mg in sodium chloride 0.9 % 50 mL IVPB Mini-Bag Plus (has no administration in time range) vancomycin (Vancocin) 1,000 mg in sodium chloride 0.9 % 250 mL IVPB (has no administration in time range) methylPREDNISolone sod suc (PF) (SOLU-Medrol) 40 MG injection 40 mg (has no administration in time range) ipratropium-albuterol (Duo-Neb) 0.5-2.5 mg/3 mL nebulizer solution 3 mL (3 mL Nebulization Given 05/30/24 0940) methylPREDNISolone sod suc (PF) (SOLU-Medrol) 40 MG injection 40 mg (40 mg IntraVENous Given 05/30/24 0923) meropenem (Merrem) 2,000 mg in sodium chloride 0.9 % 100 mL IVPB (0 mg IntraVENous Stopped 05/30/24 1047) furosemide (Lasix) injection 40 mg (40 mg IntraVENous Given 05/30/24 1050) CRITICAL CARE TIME Total Critical Care time was at least 35 minutes, excluding separately reportable procedures. There was a high probability of clinically significant/life threatening deterioration in the patient's condition which required my urgentintervention. PROCEDURES: Unless otherwise noted below, none Procedures IMPRESSION 1. Acute hypercapnic respiratory failure (HCC) 2. Hypercapnia 3. Hypoxia DISPOSITION/PLAN DISPOSITION Admit 05/30/2024 11:29:26 AM PATIENT REFERRED TO: No follow-up provider specified. DISCHARGE MEDICATIONS: Current Discharge Medication List @[facility]([id number]:LAST:1)@ (Comment: Please notethis report has been produced using speech recognition software and may contain errors related to that system including errors in grammar, punctuation, and spelling, as well as words and phrases that may be inappropriate.If there is any questions or concerns please feel free to contact the dictating provider for clarification). Arsh Mar MD (electronically signed) Attending Emergency Physician Arsh Mar MD 05/30/24 1312 EMERGENCY DEPARTMENT ENCOUNTER Pt Name: James Reyes Birthdate 1955 Date of evaluation: 05/30/2024 ED Provider: Jerri Us PA-C CHIEF COMPLAINT Chief Complaint Patient presents with Vomiting Shortness of Breath HISTORY OF PRESENT ILLNESS (Location/Symptom, Timing/Onset, Context/Setting, Quality, Duration, Modifying Factors, Severity) Note limiting factors. I wore appropriate PPE for the entirety of this encounter. HPI James Reyes is a 68 y.o. male who presents to the emergency department from a fpc facility for evaluation of nausea, vomiting, shortness of breath and concerns for possible PE. Patient does not move around much and they noticed that he was short of breath, arrives to the ED via EMS and hypoxic on arrival. He was placed on 4 L nasal cannula and remained 88%, he was placed on a nonrebreather and given a breathing treatment and route. Patient requiring high flow oxygen arrival to the ED. He is somnolent. He is not on oxygen at baseline. Nursing Notes were reviewed. Limitations to history: None Outside historians: None REVIEW OF SYSTEMS Review of Systems 14 systems reviewed, positives and pertinent negatives as per HPI. All other systems were reviewed and are negative. PAST MEDICAL HISTORY Past Medical History: Diagnosis Date Acute kidney injury (HCC) 09/11/2015 CAD in [place] artery 08/08/2017 COPD (chronic obstructive pulmonary disease) (HCC) Developmental disorder Diabetes mellitus (HCC) Esophageal reflux Gastritis see EGD on 03/29/2016 GERD (gastroesophageal reflux disease) Hyperlipidemia IBS (irritable bowel syndrome) Mixed Obesity Osteoarthritis Pain management Plantar fasciitis, bilateral Unspecified sleep apnea Urinary retention SURGICAL HISTORY Past Surgical History: Procedure Laterality Date CHOLECYSTECTOMY 03/29/20162010 COLONOSCOPY 05/23/2017 COLONOSCOPY 03/29/2016, repeat in 10 years, Dr. Ness, normal except internal hemorrhoid COLONOSCOPY N/A 07/18/2022 Performed by David Chen MD at [facility] OR CORONARY ARTERY BYPASS GRAFT FOOT SURGERY Left 2014 HEMORRHOID SURGERY 1997 INNER EAR SURGERY tube placement in ears LAYERED WOUND CLOSURE N/A 10/16/2017 sternal wound debridment and closure with wound vac OTHER SURGICAL HISTORY 10/24/2017 I&D sternal wound with flap OTHER SURGICAL HISTORY punching bag removal THYROID SURGERY nodule removal 2010 TONSILLECTOMY (HISTORICAL) UPPER GASTROINTESTINAL ENDOSCOPY 04/01/2016 gastritis, duodentitis WISDOM TOOTH EXTRACTION CURRENT MEDICATIONS Current Discharge Medication List CONTINUE these medications which have NOT CHANGED Details aspirin 81 MG chewable tablet Chew 81 mg daily. atorvastatin (Lipitor) 80 MG tablet Take 80 mg by mouth in the morning. cholestyramine (Questran) 4 g packet Take 1 packet by mouth in the morning and 1 packet at noon and 1 packet in the evening. Take with meals. cilostazol (Pletal) 50 MG tablet Take 50 mg by mouth 2 times daily. dicyclomine (Bentyl) 10 MG capsule Take 10 mg by mouth 3 times daily. famotidine (Pepcid) 20 MG tablet Take 20 mg by mouth in the morning. finasteride (Proscar) 5 MG tablet Take 5 mg by mouth in the morning. insulin glargine (Lantus) 100 UNIT/ML injection Inject 48 Units under the skin in the morning. Insulin Lispro (Humalog) 100 UNIT/ML solution injection Inject 16 Units under the skin in the morning and 16 Units at noon and 16 Units in the evening. pregabalin (Lyrica) 150 MG capsule Take 1 capsule (150 mg) by mouth 2 times daily. Qty: 30 capsule, Refills: 0 Associated Diagnoses: Pain in both knees, unspecified chronicity tamsulosin (Flomax) 0.4 MG 24 hr capsule Take 0.4 mg by mouth daily. acetaminophen (Tylenol) 325 MG tablet Take 1,000 mg by mouth 3 times daily. Advair Diskus 250-50 MCG/ACT aerosol powder albuterol (2.5 MG/3ML) 0.083% nebulizer solution Inhale 2.5 mg. albuterol 108 (90 Base) MCG/ACT inhaler Inhale 2 puffs every 6 hours as needed. carvedilol (Coreg) 6.25 MG tablet Take 1 tablet (6.25 mg) by mouth in the morning and 1 tablet (6.25 mg) in the evening. Take with meals. Qty: 180 tablet, Refills: 3 empagliflozin (Jardiance) 25 MG Take 25 mg by mouth daily. ergocalciferol (Vitamin D-2) 1.25 MG (93336 UT) capsule Take 1.25 mg by mouth 1 (one) time per week. Every Monday ezetimibe (Zetia) 10 MG tablet Take 10 mg by mouth Nightly. fluticasone (Flonase) 50 MCG/ACT nasal spray Administer 1 spray into each nostril daily. Shake gently. Before first use, prime pump. After use, clean tip and replace cap. ibuprofen 600 MG tablet Take 600 mg by mouth every 6 hours as needed for mild pain (1-3). Incruse Ellipta 62.5 MCG/ACT inhalation Inhale 1 puff daily. Menthol, Topical Analgesic, (Biofreeze Cool The Pain) 4 % gel Apply topically every 12 hours as needed (lower back). metFORMIN (Glucophage) 500 MG tablet Take 500 mg by mouth 2 times daily (with meals). nabumetone (Relafen) 500 MG tablet Take 750 mg by mouth 2 times daily. nitroglycerin (Nitrostat) 0.[address] 0.4 mg under the tongue every 5 minutes as needed for chest pain. nystatin (Mycostatin) cream pancrelipase, Udv-Jphf-Qjsh, (Creon) 08451-83337 units capsule Take by mouth 3 times daily (with meals). tiotropium (Spiriva) [address] 1 capsule into inhaler and inhale in the morning. 2 puffs. ALLERGIES Penicillins and Tetracyclines & related FAMILY HISTORY Family History Problem Relation Name Age of Onset Heart attack Mother 61.00 Heart disease Father Other ([id number]) Brother accident Coronary artery disease Father Diabetes Father SOCIAL HISTORY Social History Socioeconomic History Marital status: Single Tobacco Use Smoking status: Every Day Current packs/day: 1.00 Average packs/day: 1 pack/day for 51.1 years (51.1 ttl pk-yrs) Types: Cigarettes Start date: 04/28/1973 Smokeless tobacco: Never Vaping Use Vaping status: Never Used Substance and Sexual Activity Alcohol use: No Alcohol/week: 0.0 standard drinks of alcohol Drug use: No Comment: caffeine use: decaf coffee sometimes Social Drivers of Health Transportation Needs: No Transportation Needs (11/30/2023) PRAPARE - Transportation Lack of Transportation (Medical): No Lack of Transportation (Non-Medical): No Intimate Partner Violence: Not At Risk (11/30/2023) Humiliation, Afraid, Rape, and Kick questionnaire Fear of Current or Ex-Partner: No Emotionally Abused: No Physically Abused: No Sexually Abused: No Housing Stability: Low Risk (11/30/2023) Housing Stability Vital Sign Unable to Pay for Housing in the Last Year: No Number of Times Moved in the Last Year: 0 Homeless in the Last Year: No SCREENINGS Orion Coma Scale Best Eye Response: Spontaneous Best Verbal Response: Oriented Best Motor Response: Follows commands [place] Coma Scale Score: 15 PHYSICAL EXAM ED Triage Vitals [05/30/24 0839] Temp Heart Rate Resp BP 36.7 C (98 F) 110 19 110/56 SpO2 Temp Source Heart Rate Source Patient Position (!) 90 % Oral Monitor Sitting BP Location FiO2 (%) Left arm -- Physical Exam Vitals and nursing note reviewed. Constitutional: General: He is in acute distress. Appearance: He is well-developed. HENT: Head: Normocephalic and atraumatic. Eyes: Conjunctiva/sclera: Conjunctivae normal. Cardiovascular: Rate and Rhythm: Normal rate and regular rhythm. Heart sounds: No murmur heard. Pulmonary: Effort: Respiratory distress present. Breath sounds: Decreased breath sounds and wheezing present. Comments: Hypoxic on RA - requiring high flow Abdominal: Palpations: Abdomen is soft. Tenderness: There is no abdominal tenderness. Musculoskeletal: General: No swelling. Cervical back: Neck supple. Skin: General: Skin is warm and dry. Capillary Refill: Capillary refill takes less than 2 seconds. Psychiatric: Mood and Affect: Mood normal. DIAGNOSTIC RESULTS RADIOLOGY (Per Emergency Physician): Interpretation per the Radiologist below, if available at the time of this note: XR chest 1 view Final Result FINDINGS AND IMPRESSION: SUPPORT DEVICES: EKG leads OSSEOUS STRUCTURES: Unremarkable. HEART AND MEDIASTINUM: The cardiomediastinal silhouette appears unchanged from the prior exam. LUNGS AND PLEURA: There is pulmonary venous congestion and interstitial edema. No consolidation. Suspected nodular density overlying the right lateral midlung. Recommend either nonemergent CT for further evaluation or short-term radiographic follow-up. No sizable pleural effusion. Report Dictated on Electronically Signed By: Jimbo Voss MD Electronically Signed Date/Time: 05/30/2024 9:11 AM EST LABS: Labs Reviewed NT PRO BNP - Abnormal Result Value NT PRO BNP 533 (*) BASIC METABOLIC PANEL - Abnormal SODIUM 139 POTASSIUM 4.8 CHLORIDE 109 (*) CARBON DIOXIDE 20 (*) UREA NITROGEN 44 (*) CREATININE 1.28 (*) GLUCOSE 284 (*) CALCIUM 7.8 (*) ANION GAP 10 eGFR 61.3 CBC WITH AUTO DIFFERENTIAL - Abnormal Auto WBC 14.1 (*) RBC 3.66 (*) Hemoglobin 10.6 (*) Hematocrit 34.7 (*) MCV 94.8 MCH 29.0 MCHC 30.5 RDW 15.5 (*) Platelets 190 MPV 10.6 BLOOD GAS ARTERIAL - Abnormal pH, Arterial 7.290 (*) pCO2, Arterial 50.7 (*) pO2, Arterial 64.1 (*) HCO3, Arterial 23.8 O2 Sat, Arterial 89.5 (*) Base Excess, Arterial -3.0 CO2 Total 25.4 Hgb, blood gas 11.3 (*) Source Of Oxygen Heated High Flow D-DIMER,QUANTITATIVE - Abnormal D-DIMER, INNOVANCE 0.58 (*) Narrative: Innovance D-Dimer values of <0.50 mg/L FEU can be used in combination with a pre-test probability model (e.g. Well's) to exclude pulmonary embolism (PE) disease, as well as an aid in the diagnosis of deep vein thrombosis (DVT). MANUAL DIFFERENTIAL - Abnormal Adjusted WBC 14.1 (*) Neutrophils % 83 (*) Bands % 7 (*) Lymphocytes % 2 (*) Monocytes % 8 Absolute Neutrophil Count 12.7 (*) Segs Absolute 12.7 (*) Bands Absolute 1.0 (*) Lymphocytes Absolute 0.3 (*) Monocytes Absolute 1.1 (*) Anisocytosis Slight (*) Polychromasia Slight (*) Ovalocytes Slight (*) WBC Morphology Normal PLT Morphology Normal Total Counted 101 Neutrophils Manual 84 Lymphocytes Manual 2 Monocytes Manual 8 Bands Manual 7 Differential Method Manual differential performed BLOOD GAS ARTERIAL - Abnormal pH, Arterial 7.327 (*) pCO2, Arterial 42.5 pO2, Arterial 85.7 HCO3, Arterial 21.8 O2 Sat, Arterial 95.9 (*) Base Excess, Arterial -4.0 (*) CO2 Total 23.1 Hgb, blood gas 11.5 (*) Source Of Oxygen Bi-PAP POCT GLUCOSE METER UNSOLICITED RESULTS - Abnormal Glucose 247 (*) Narrative: Performed by: [facility], [address] [place] [id number] CLIA ID: [id number] SARS-COV-2, FLU A/B, AND RSV COMBO - Normal SARS-CoV-2 Not Detected Respiratory Syncytial Virus Not Detected Influenza A Not Detected Influenza B Not Detected Narrative: Methodology: real-time, RT-PCR The SARS-CoV-2, Flu A/B, and RSV Combo assay is intended for in vitro diagnostic use under the FDA Emergency Use Authorization (EUA). This test has not been FDA cleared or approved. In compliance with this authorization, please visit www.fda.gov/media/187812/download or www.fda.gov/media/263717/download to access the applicable information sheets. BLOOD CULTURE - Normal Blood Culture Blood culture incubation started Narrative: Blood Collection Site: Right Hand BLOOD CULTURE - Normal Blood Culture Blood culture incubation started Narrative: Blood Collection Site: Left Hand RESPIRATORY PATHOGENS PANEL BY PCR - Normal SARS-CoV-2 Not Detected Adenovirus Not Detected Coronavirus HKU1 Not Detected Coronavirus NL63 Not Detected Coronavirus 229E Not Detected Coronavirus OC43 Not Detected Human Metapneumovirus Not Detected Human Rhinovirus/Enterovirus Not Detected Influenza A Not Detected Influenza B Not Detected Parainfluenza 1 Not Detected Parainfluenza 2 Not Detected Parainfluenza 3 Not Detected Parainfluenza 4 Not Detected Respiratory Syncytial Virus Not Detected Bordetella pertussis Not Detected Bordetella parapertussis Not Detected Chlamydia pneumoniae Not Detected Mycoplasma pneumoniae Not Detected Narrative: Methodology: Multiplex PCR LACTIC ACID WITH REFLEX - Normal LACTIC ACID 1.4 HIGH SENSITIVITY TROPONIN, SERIAL BASELINE - Normal Troponin HS Serial Baseline 13 HIGH SENSITIVITY TROPONIN, SERIAL, SECOND TEST - Normal 2h Troponin HS (Serial 2nd Troponin) 17 HIGH SENSITIVITY TROPONIN, SERIAL, THIRD TEST - Normal 4h Troponin HS (Serial 3rd Troponin) 21 LEGIONELLA AND STREPTOCOCCUS URINE ANTIGEN, ORDERABLE Narrative: The following orders were created for panel order Legionella and Streptococcus Urine Antigen. Procedure Abnormality Status --------- ------ Legionella and Streptoco...[[id number]] Urine Hold Cup[[id number]] Please view results for these tests on the individual orders. MRSA BY PCR LEGIONELLA AND STREPTOCOCCUS URINE ANTIGEN COMPLETE URINALYSIS WITH REFLEX TO CULTURE Narrative: The following orders were created for panel order Complete Urinalysis with reflex to Culture. Procedure Abnormality Status --------- ------ Complete Urinalysis[[id number]] Please view results for these tests on the individual orders. URINE HOLD CUP COMPLETE URINALYSIS All other labs were within normal range or not returned as of this dictation. EMERGENCY DEPARTMENT COURSE and DIFFERENTIAL DIAGNOSIS/MDM: Vitals: Vitals: 05/30/24 1300 05/30/24 1400 05/30/24 1500 05/30/24 1600 BP: 97/65 113/64 108/62 116/63 BP Location: Patient Position: Pulse: 98 90 98 92 Resp: 16 Temp: TempSrc: SpO2: 99% 94% 97% 95% Weight: Height: Medications mupirocin (Bactroban) 2 % ointment 1 Application (1 Application Nasal Given 05/30/24 1400) naloxone (Narcan) injection 0.4 mg (has no administration in time range) ondansetron ODT (Zofran-ODT) disintegrating tablet 4 mg (has no administration in time range) Or ondansetron (Zofran) injection 4 mg (has no administration in time range) enoxaparin (Lovenox) syringe 30 mg (30 mg SubCUTAneous Given 05/30/24 1400) ipratropium-albuterol (Duo-Neb) 0.5-2.5 mg/3 mL nebulizer solution 3 mL (3 mL Nebulization Given 05/30/24 1608) guaiFENesin (Mucinex) 12 hr tablet 600 mg (600 mg Oral Given 05/30/24 1353) pantoprazole (ProtoNix) EC tablet 40 mg (40 mg Oral Given 05/30/24 1353) acetaminophen (Tylenol) tablet 1,000 mg (has no administration in time range) polyethylene glycol (PEG) 3350 (Miralax) packet 17 g (17 g Oral Not Given 05/30/24 1424) senna-docusate sodium (Senokot-S) 8.6-50 MG tablet 1 tablet (has no administration in time range) insulin glargine (Lantus) injection 44 Units (has no administration in time range) insulin regular (HumuLIN R,NovoLIN R) injection 0-12 Units (4 Units SubCUTAneous Given 05/30/24 1414) pregabalin (Lyrica) capsule 150 mg (150 mg Oral Given 05/30/24 1353) pancrelipase (Jky-Vwpn-Odjg) (Creon) 71621-828352 units per capsule 1 capsule (1 capsule Oral Not Given 05/30/24 1338) tamsulosin (Flomax) 24 hr capsule 0.4 mg (0.4 mg Oral Given 05/30/24 1353) carvedilol (Coreg) tablet 6.25 mg (has no administration in time range) aspirin EC tablet 81 mg (has no administration in time range) glucose oral gel 15 g (has no administration in time range) dextrose 50 % solution 12.5 g (has no administration in time range) glucagon (human recombinant) injection 1 mg (has no administration in time range) dextrose 5 % infusion (has no administration in time range) cefepime (Maxipime) 2,000 mg in sodium chloride 0.9 % 50 mL IVPB Mini-Bag Plus (has no administration in time range) vancomycin (Vancocin) 1,000 mg in sodium chloride 0.9 % 250 mL IVPB (has no administration in time range) methylPREDNISolone sod suc (PF) (SOLU-Medrol) 40 MG injection 40 mg (has no administration in time range) ipratropium-albuterol (Duo-Neb) 0.5-2.5 mg/3 mL nebulizer solution 3 mL (3 mL Nebulization Given 05/30/24 0940) methylPREDNISolone sod suc (PF) (SOLU-Medrol) 40 MG injection 40 mg (40 mg IntraVENous Given 05/30/24 0923) meropenem (Merrem) 2,000 mg in sodium chloride 0.9 % 100 mL IVPB (0 mg IntraVENous Stopped 05/30/24 1047) vancomycin (Vancocin) 2500 mg in 0.9% sodium chloride 500 mL IVPB (compounded premix) (0 mg IntraVENous Stopped 05/30/24 1414) furosemide (Lasix) injection 40 mg (40 mg IntraVENous Given 05/30/24 1050) ED care was supervised by Dr. Mar who independently examined and evaluated the patient. Please see their attestation note for further details. In brief, James Reyes is a 68 y.o. male who presented to the emergency department for shortness of breath and respiratory distress, placed on high flow oxygen arrival to the ED. He is presenting to the ED from a nursing facility. Sepsis protocol initiated with administration of IV antibiotics, blood cultures prior to. 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 nursing notes and medical records reviewed, PMH of CAD, stable angina, IBS, HLD, type 2 diabetes, HTN, COPD. Differential considerations included electrolyte derangement versus ACS versus TX versus PE versus pneumonia versus acidosis Initial medical management includes DuoNeb, steroids, vancomycin and meropenem Initial workup includes CBC, BMP, BNP, lactic acid, VBG, troponin, D-dimer, chest x-ray, EKG Lab workup results CBC shows a leukocytosis of 14.1, anemia of 10.6. BMP shows a BUN of 44, no anion gap, CO2 of 20. Acidosis on VBG of 7.3-7. Troponin is 13. There is a mild JESSIKA. BNP is 533. D-dimer is 0.58, no PE. COVID flu RSV is negative. Imaging results per radiology chest x-ray demonstrates: There is pulmonary venous congestion and interstitial edema. No consolidation. Suspected nodular density overlying the right lateral midlung. Recommend either nonemergent CT for further evaluation or short-term radiographic follow-up. No sizable pleural effusion. Upon reassessment patient is more awake and alert and answering questions. States he is not on oxygen at baseline. Continuously requiring NIV given this I see will be down to evaluate the patient. Patient evaluated by Dr. Willis with ICU who accept the patient to the ICU. Please refer to their note for the details regarding this patient's hospital course. PROCEDURES: Unless otherwise noted below, none Procedures FINAL IMPRESSION 1. Acute hypercapnic respiratory failure (HCC) 2. Hypercapnia 3. Hypoxia DISPOSITION Admit 05/30/2024 11:29:26 AM PATIENT REFERRED TO: No follow-up provider specified. DISCHARGE MEDICATIONS: Current Discharge Medication List (Comment: Please note this report has been produced using speech recognition software and may contain errors related to that system including errors in grammar, punctuation, and spelling, as well as words and phrases that may be inappropriate. If there are any questions or concerns please feel free to contact the dictating provider for clarification.) Jerri Us PA-C (electronically signed) Emergency Medicine Provider Jerri Us PA-C 05/30/24 1636 Cosigned by Arsh Mar MD at 05/30/2024 5:23 PM EST Pt arrived via EMS from [facility]. Co coffee ground emesis upon arrival EMS noted 70% SpO2.EMS placed nasal cannula at 4L. Noted 80%. Moved to NRB at 90% SPO2. EMS placed line and 1 breathing tx . Placed in bed. Provider and EKG at bedside. Vials assessed. Continue with plan of care. documented in this encounter [facility] 05-30-2024 Consult note Formatting of th is note is different from the original. Internal Medicine: MICU Initial Consult James Reyes : 1955(68 y.o.) Date: May 30, 2024 Attending: Dr. Willis Assessment and Plan: ASSESSMENT: Severe sepsis Acute hypoxemic respir failure Respir acidosis AECOPD MINERVA JESSIKA NAGMA Leukocytosis T2DM uncontrolled w/ hyperglycemia Anemia (chronic, normocytic) CAD w/ h/o CABG 2014. Body mass index is 40.69 kg/m . Morbid obesity PLAN: Admit to MICU. Complete infectious w/up. Continue broad Abx = cefepime and vanc. Follow for culture results. Change HHFNC to NIV as likely a combo of AECOPD and slight pulm vasc congestion. Continue scheduled and PRN nebs. Continue steroids. Redose laxix as needed Repeat ABG in 2 hrs. Repeat CXR in AM. Avoid nephro tox agents as able. Support hemodynamics and euvolemia. Daily BMP. Use home lantus at bedtime. Regular SSI q6hr while nPO FSBS q6hrs. Follow cell counts daily. CORE MEASURE DATA SIRS Criteria Sepsis Criteria Severe Sepsis Criteria Septic Shock Criteria Must meet 2: [] Temperature > 100.4 F (38 C) or < 96.8 F (36 C) [] HR > 90 [] RR > 20 [] WBC > 12 or < 4 or 10% bands Must be confirmed or suspected to move forward with diagnosis of sepsis. Must select at least one: [] Bacterial Infection Confirmed or Suspected. [] Viral Infection Confirmed or Suspected. [] No infection present. Patient does not meet criteria for Sepsis. Must meet 1: [] Lactate > 2 or [] Signs of Organ Dysfunction: - SBP < 90 or MAP < 65 - Altered mental status - Creatinine > 2 or increased from baseline - Urine Output < 0.5 ml/kg/hr - Bilirubin > 2 - INR > 1.5 - Platelets < 100,000 - Acute Respiratory Failure as evidenced by new need for NIPPV or mechanical ventilation [] No criteria met for Severe Sepsis. Must meet 1: [] Lactate = or > 4 or [] SBP < 90 or MAP < 65 for at least two readings in the first hour after fluid bolus administration [] No criteria met for Septic Shock. Patient Vitals from 05/30/24 2301 to 05/31/24 0000 BP Pulse Resp SpO2 05/30/24 2303 132/69 84 13 97 % 05/30/24 2334 -- 84 12 97 % Recent Labs 05/30/24 0914 05/31/24 0405 WBC 14.1* 11.4* LACTATE 1.4 -- CREATININE 1.28* 1.58* BILITOT -- 0.2 PLT 190 194 Sepsis Identified at 1128 hours. Fluid Resuscitation Rational: at least 30mL/kg based on entered actual body weight at time of triage Infection Source: Unknown Reassessment Exam: Not applicable. Patient does not have Septic Shock. Haydee Willis DO Analgesics: tylenol Sedation: no Pressors: no Vent: no Diet: NPO with meds and sip DVT: lovenox GI: PPI ABx: cefepime vanc Lines/Invasive Equip: PIV Consultants: none DISPO: MICU In my professional opinion this pt is critically ill based on the aforementioned assessment/plan: Yes Lifethreatening disease process: Yes Unstable organ failure: No Active vent mgmt: No Active management of life support system(s): No Subjective: Chief Complaint: Chief Complaint Patient presents with Vomiting Shortness of Breath AdmitDate = 05/30/2024 LOS: 0 HPI: 68 y/o M w/ Hx below p/w SOB from SNF/rehab. Reported to be hypoxemic into 70s for EMS. Given neb by EMS. Placed on NRB with improvement into 90s. He has receved lasix, neb, abx and steroids in the ER. MICU consulted for new O2 requirement and acidosis. + sick contacts at home. Past Medical History: Diagnosis Date Acute kidney injury (HCC) 09/11/2015 CAD in [place] artery 08/08/2017 COPD (chronic obstructive pulmonary disease) (HCC) Developmental disorder Diabetes mellitus (HCC) Esophageal reflux Gastritis see EGD on 03/29/2016 GERD (gastroesophageal reflux disease) Hyperlipidemia IBS (irritable bowel syndrome) Mixed Obesity Osteoarthritis Pain management Plantar fasciitis, bilateral Unspecified sleep apnea Urinary retention Past Surgical History: Procedure Laterality Date CHOLECYSTECTOMY 03/29/20162010 COLONOSCOPY 05/23/2017 COLONOSCOPY 03/29/2016, repeat in 10 years, Dr. Ness, normal except internal hemorrhoid COLONOSCOPY N/A 07/18/2022 Performed by David Chen MD at [facility] [place] CORONARY ARTERY BYPASS GRAFT FOOT SURGERY Left 2015 HEMORRHOID SURGERY 1998 INNER EAR SURGERY tube placement in ears LAYERED WOUND CLOSURE N/A 10/16/2017 sternal wound debridment and closure with wound vac OTHER SURGICAL HISTORY 10/24/2017 I&D sternal wound with flap OTHER SURGICAL HISTORY punching bag removal THYROID SURGERY nodule removal 2010 TONSILLECTOMY (HISTORICAL) UPPER GASTROINTESTINAL ENDOSCOPY 04/01/2016 gastritis, duodentitis WISDOM TOOTH EXTRACTION Family History Problem Relation Name Age of Onset Heart attack Mother 61.00 Heart disease Father Other ([id number]) Brother accident Coronary artery disease Father Diabetes Father Social History Socioeconomic History Marital status: Single Spouse name: Not on file Number of children: Not on file Years of education: Not on file Highest education level: Not on file Occupational History Not on file Tobacco Use Smoking status: Every Day Current packs/day: 1.00 Average packs/day: 1 pack/day for 51.1 years (51.1 ttl pk-yrs) Types: Cigarettes Start date: 04/28/1973 Smokeless tobacco: Never Vaping Use Vaping status: Never Used Substance and Sexual Activity Alcohol use: No Alcohol/week: 0.0 standard drinks of alcohol Drug use: No Comment: caffeine use: decaf coffee sometimes Sexual activity: Not on file Comment: single Other Topics Concern Not on file Social History Narrative Not on file Social Drivers of Health Financial Resource Strain: Not on file Food Insecurity: Not on file Transportation Needs: No Transportation Needs (11/30/2023) PRAPARE - Transportation Lack of Transportation (Medical): No Lack of Transportation (Non-Medical): No Physical Activity: Not on file Stress: Not on file Social Connections: Not on file Intimate Partner Violence: Not At Risk (11/30/2023) Humiliation, Afraid, Rape, and Kick questionnaire Fear of Current or Ex-Partner: No Emotionally Abused: No Physically Abused: No Sexually Abused: No Housing Stability: Low Risk (11/30/2023) Housing Stability Vital Sign Unable to Pay for Housing in the Last Year: No Number of Times Moved in the Last Year: 0 Homeless in the Last Year: No Allergies Allergen Reactions Penicillins Other reaction(s): Other (See Comments), Unknown unknown Tetracyclines & Related Other reaction(s): Other (See Comments), Unknown unknown Prior to Admission medications Medication Sig Start Date End Date Taking? Authorizing Provider acetaminophen (Tylenol) 325 MG tablet Take 1,000 mg by mouth 3 times daily. 07/28/21 Historical Provider, Advair Diskus 250-50 MCG/ACT aerosol powder 01/21/23 Historical Provider, albuterol (2.5 MG/3ML) 0.083% nebulizer solution Inhale 2.5 mg. 07/28/21 Historical Provider, albuterol 108 (90 Base) MCG/ACT inhaler Inhale 2 puffs every 6 hours as needed. 11/24/16 Historical Provider, aspirin 81 MG chewable tablet Chew 81 mg daily. 08/26/21 Historical Provider, atorvastatin (Lipitor) 80 MG tablet Take 80 mg by mouth in the morning. 07/29/21 Historical Provider, carvedilol (Coreg) 6.25 MG tablet Take 1 tablet (6.25 mg) by mouth in the morning and 1 tablet (6.25 mg) in the evening. Take with meals. Patient taking differently: Take 3.125 mg by mouth 2 times daily (with meals). 02/22/23 Suzy Corcoran MD cholestyramine (Questran) 4 g packet Take 1 packet by mouth in the morning and 1 packet at noon and 1 packet in the evening. Take with meals. Historical Provider, cilostazol (Pletal) 50 MG tablet Take 50 mg by mouth 2 times daily. Historical Provider, dicyclomine (Bentyl) 10 MG capsule Take 10 mg by mouth 3 times daily. 02/01/23 Historical ProviderMD empagliflozin (Jardiance) 25 MG Take 25 mg by mouth daily. Historical Provider, ergocalciferol (Vitamin D-2) 1.25 MG (14187 UT) capsule Take 1.25 mg by mouth 1 (one) time per week. Every Monday Historical ProviderMD ezetimibe (Zetia) 10 MG tablet Take 10 mg by mouth Nightly. 08/26/21 Historical ProviderMD famotidine (Pepcid) 20 MG tablet Take 20 mg by mouth in the morning. 08/26/21 Historical ProviderMD finasteride (Proscar) 5 MG tablet Take 5 mg by mouth in the morning. 08/26/21 Historical ProviderMD fluticasone (Flonase) 50 MCG/ACT nasal spray Administer 1 spray into each nostril daily. Shake gently. Before first use, prime pump. After use, clean tip and replace cap. Historical Provider, ibuprofen 600 MG tablet Take 600 mg by mouth every 6 hours as needed for mild pain (1-3). Historical Provider, Incruse Ellipta 62.5 MCG/ACT inhalation Inhale 1 puff daily. 04/29/24 Historical Provider, insulin glargine (Lantus) 100 UNIT/ML injection Inject 48 Units under the skin in the morning. 08/26/21 Historical ProviderMD Insulin Lispro (Humalog) 100 UNIT/ML solution injection Inject 16 Units under the skin in the morning and 16 Units at noon and 16 Units in the evening. 08/26/21 Historical Provider, Menthol, Topical Analgesic, (Biofreeze Cool The Pain) 4 % gel Apply topically every 12 hours as needed (lower back). Historical Provider, metFORMIN (Glucophage) 500 MG tablet Take 500 mg by mouth 2 times daily (with meals). Historical Provider, nabumetone (Relafen) 500 MG tablet Take 750 mg by mouth 2 times daily. Historical Provider, nitroglycerin (Nitrostat) 0.[address] 0.4 mg under the tongue every 5 minutes as needed for chest pain. Historical Provider, nystatin (Mycostatin) cream 11/08/22 Historical Provider, pancrelipase, Rih-Mjuf-Wxoh, (Creon) 76786-62449 units capsule Take by mouth 3 times daily (with meals). Historical Provider, pregabalin (Lyrica) 150 MG capsule Take 1 capsule (150 mg) by mouth 2 times daily. 12/05/23 Romario Munoz MD tamsulosin (Flomax) 0.4 MG 24 hr capsule Take 0.4 mg by mouth daily. 05/21/20 Historical ProviderMD tiotropium (Spiriva) [address] 1 capsule into inhaler and inhale in the morning. 2 puffs. Patient not taking: Reported on 05/13/2024 Historical Provider, Objective: VITALS: BP 110/61 (BP Location: Left arm, Patient Position: Lying) Pulse 104 Temp 36.7 C (98 F) (Oral) Resp 18 Ht 1.829 m (6') Wt 136 kg (300 lb) SpO2 98% BMI 40.69 kg/m CURRENT PULSE OXIMETRY: SpO2: 98 % Oxygen Delivery - O2 Flow Rate (L/min): 12 L/min Review of Systems All other systems reviewed and are negative. Physical Exam Vitals and nursing note reviewed. Constitutional: General: He is awake. He is not in acute distress. Appearance: He is morbidly obese. He is ill-appearing. He is not toxic-appearing or diaphoretic. Interventions: Nasal cannula in place. HENT: Head: Normocephalic and atraumatic. Right Ear: External ear normal. Left Ear: External ear normal. Nose: Nose normal. Mouth/Throat: Mouth: Mucous membranes are moist. Eyes: General: Lids are normal. No scleral icterus. Extraocular Movements: Extraocular movements intact. Conjunctiva/sclera: Conjunctivae normal. Right eye: Right conjunctiva is not injected. Left eye: Left conjunctiva is not injected. Neck: Trachea: Trachea normal. No tracheostomy or tracheal deviation. Cardiovascular: Rate and Rhythm: Normal rate and regular rhythm. Pulses: Radial pulses are 2+ on the right side and 2+ on the left side. Heart sounds: Normal heart sounds. Musculoskeletal: Right lower leg: Edema present. Left lower leg: Edema present. Neurological: Mental Status: He is alert. Psychiatric: Behavior: Behavior is cooperative. Select Labs within last 24 hours- BMP: Recent Labs 05/30/24 0914 NA 139 K 4.8 CL 109* CO2 20* BUN 44* CREATININE 1.28* CALCIUM 7.8* LFTS:No results for input(s): "AST", "ALT", "PROT", "BILITOT", "ALKPHOS", "LIPASE" in the last 72 hours. No lab exists for component: "LABALBU", "BU" Glucose: Recent Labs 05/30/24 0914 GLUCOSE 284* Procal: No results for input(s): "PROCAL" in the last 72 hours. CBC: Recent Labs 05/30/24 0914 05/30/24 0937 WBC 14.1* -- HGB 10.6* 11.3* HCT 34.7* -- PLT 190 -- MCV 94.8 -- RDW 15.5* -- ABGs: Recent Labs 05/30/24 0937 PHART 7.290* [id number] 50.7* PO2ART 64.1* REV6ZPE 23.8 [id number] 89.5* Lactic Acid: No lab exists for component: "LACTA" INR: No results for input(s): "INR" in the last 72 hours. Cardiac Injury Profile: No results for input(s): "CKTOTAL", "CKMB", "TROPONINI" in the last 72 hours. Labs in Last 3 months: Lab Results Component Value Date TSH 1.209 11/30/2023 VITD25 24 (L) 12/02/2023 INR 1.0 11/29/2023 Microbiology- Urine Cx: No components found for: LABURIN Blood Cx: No components found for: BC Sputum Cx: No components found for: "RESPCULTURE" Gram Stain: No results found for: LABGRAM PNA PCR: No components found for: PNPCRPNL COVID19: No results found for: COVID19 Legionella Ag: No components found for: "LEGIONELLAANTIGEN" Strep Ag: No lab exists for component: "STREPNEUMAGU" Imaging- Reviewed in PACS CRITICAL CARE TIME - 35min Total time caring for this patient including direct patient contact, review of data including imaging and labs, discussions with other team members and physicians, excluding procedures. [facility] 05-30-2024 Emergency department Triage note Pt arrived via EMS from [facility]. Co coffee ground emesis upon arrival EMS noted 70% SpO2.EMS placed nasal cannula at 4L. Noted 80%. Moved to NRB at 90% SPO2. EMS placed line and 1 breathing tx . Placed in bed. Provider and EKG at bedside. Vials assessed. Continue with plan of care. [facility] 05-30-2024 Physician Emergency department Note [facility] UN[facility] ICU 2 EMERGENCY DEPARTMENT ENCOUNTER Pt Name: James Reyes Birthdate 1955 Date of evaluation: 05/30/2024 Provider: Arsh Mar MD CHIEF COMPLAINT Chief Complaint Patient presents with Vomiting Shortness of Breath HISTORY OF PRESENT ILLNESS (Location/Symptom, Timing/Onset,Context/Setting, Quality, Duration, Modifying Factors, Severity) Note limiting factors. James Reyes is a 68 y.o. male who presents to the emergency department patient seen along with advanced practice provider. Presented with vomiting shortness of breath. Brought in via squad [facility]. He is normally not on oxygen. HPI Historian is patient Nurse's notes for past medical history, surgical history, social history were reviewed. Medications and allergies reviewed. PAST MEDICAL HISTORY Past Medical History: Diagnosis Date Acute kidney injury (HCC) 09/11/2015 CAD in [place] artery 08/08/2017 COPD (chronic obstructive pulmonary disease) (HCC) Developmental disorder Diabetes mellitus (HCC) Esophageal reflux Gastritis see EGD on 03/29/2016 GERD (gastroesophageal reflux disease) Hyperlipidemia IBS (irritable bowel syndrome) Mixed Obesity Osteoarthritis Pain management Plantar fasciitis, bilateral Unspecified sleep apnea Urinary retention SURGICALHISTORY Past Surgical History: Procedure Laterality Date CHOLECYSTECTOMY 03/29/20162010 COLONOSCOPY 05/23/2017 COLONOSCOPY 03/29/2016, repeat in 10 years, Dr. Ness, normal except internal hemorrhoid COLONOSCOPY N/A 07/18/2022 Performed by David Chen MD at [facility] OR CORONARY ARTERY BYPASS GRAFT FOOT SURGERY Left 2014 HEMORRHOID SURGERY 1997 INNER EAR SURGERY tube placement in ears LAYERED WOUND CLOSURE N/A 10/16/2017 sternal wound debridment and closure with wound vac OTHER SURGICAL HISTORY 10/24/2017 I&D sternal wound with flap OTHER SURGICAL HISTORY punching bag removal THYROID SURGERY nodule removal 2010 TONSILLECTOMY (HISTORICAL) UPPER GASTROINTESTINAL ENDOSCOPY 04/01/2016 gastritis, duodentitis WISDOM TOOTH EXTRACTION CURRENT MEDICATIONS Current Discharge Medication List CONTINUE these medications which have NOT CHANGED Details acetaminophen (Tylenol) 325 MG tablet Take 1,000 mg by mouth 3 times daily. Advair Diskus 250-50 MCG/ACT aerosol powder albuterol (2.5 MG/3ML) 0.083% nebulizer solution Inhale 2.5 mg. albuterol 108 (90 Base) MCG/ACT inhaler Inhale 2 puffs every 6 hours as needed. aspirin 81 MG chewable tablet Chew 81 mg daily. atorvastatin (Lipitor) 80 MG tablet Take 80 mg by mouth in the morning. carvedilol (Coreg) 6.25 MG tablet Take 1 tablet (6.25 mg) by mouth in the morning and 1 tablet (6.25 mg) in the evening. Take with meals. Qty: 180 tablet, Refills: 3 cholestyramine (Questran) 4 g packet Take 1 packet by mouth in the morning and 1 packet at noon and 1 packet in the evening. Take with meals. cilostazol (Pletal) 50 MG tablet Take 50 mg by mouth 2 times daily. dicyclomine (Bentyl) 10 MG capsule Take 10 mg by mouth 3 times daily. empagliflozin (Jardiance) 25 MG Take 25 mg by mouth daily. ergocalciferol (Vitamin D-2) 1.25 MG (93744 UT) capsule Take 1.25 mg by mouth 1 (one) time per week. Every Monday ezetimibe (Zetia) 10 MG tablet Take 10 mg by mouth Nightly. famotidine (Pepcid) 20 MG tablet Take 20 mg by mouth in the morning. finasteride (Proscar) 5 MG tablet Take 5 mg by mouth in the morning. fluticasone (Flonase) 50 MCG/ACT nasal spray Administer 1 spray into each nostril daily. Shake gently. Before first use, prime pump. After use, clean tip and replace cap. ibuprofen 600 MG tablet Take 600 mg by mouth every 6 hours as needed for mild pain (1-3). Incruse Ellipta 62.5 MCG/ACT inhalation Inhale 1 puff daily. insulin glargine (Lantus) 100 UNIT/ML injection Inject 48 Units under the skin in the morning. Insulin Lispro (Humalog) 100 UNIT/ML solution injection Inject 16 Units under the skin in the morning and 16 Units at noon and 16 Units in the evening. Menthol, Topical Analgesic, (Biofreeze Cool The Pain) 4 % gel Apply topically every 12 hours as needed (lower back). metFORMIN (Glucophage) 500 MG tablet Take 500 mg by mouth 2 times daily (with meals). nabumetone (Relafen) 500 MG tablet Take 750 mg by mouth 2 times daily. nitroglycerin (Nitrostat) 0.[address] 0.4 mg under the tongue every 5 minutes as needed for chest pain. nystatin (Mycostatin) cream pancrelipase, Vyg-Ucjd-Tkew, (Creon) 09561-82141 units capsule Take by mouth 3 times daily (with meals). pregabalin (Lyrica) 150 MG capsule Take 1 capsule (150 mg) by mouth 2 times daily. Qty: 30 capsule, Refills: 0 Associated Diagnoses: Pain in both knees, unspecified chronicity tamsulosin (Flomax) 0.4 MG 24 hr capsule Take 0.4 mg by mouth daily. tiotropium (Spiriva) [address] 1 capsule into inhaler and inhale in the morning. 2 puffs. Penicillins and Tetracyclines & related FAMILY HISTORY Family History Problem Relation Name Age of Onset Heart attack Mother 61.00 Heart disease Father Other ([id number]) Brother accident Coronary artery disease Father Diabetes Father SOCIAL HISTORY Social History Socioeconomic History Marital status: Single Tobacco Use Smoking status: Every Day Current packs/day: 1.00 Average packs/day: 1 pack/day for 51.1 years (51.1 ttl pk-yrs) Types: Cigarettes Start date: 04/28/1973 Smokeless tobacco: Never Vaping Use Vaping status: Never Used Substance and Sexual Activity Alcohol use: No Alcohol/week: 0.0 standard drinks of alcohol Drug use: No Comment: caffeine use: decaf coffee sometimes Social Drivers of Health Transportation Needs: No Transportation Needs (11/30/2023) PRAPARE - Transportation Lack of Transportation (Medical): No Lack of Transportation (Non-Medical): No Intimate Partner Violence: Not At Risk (11/30/2023) Humiliation, Afraid, Rape, and Kick questionnaire Fear of Current or Ex-Partner: No Emotionally Abused: No Physically Abused: No Sexually Abused: No Housing Stability: Low Risk (11/30/2023) Housing Stability Vital Sign Unable to Pay for Housing in the Last Year: No Number of Times Moved in the Last Year: 0 Homeless in the Last Year: No SCREENINGS PHYSICAL EXAM (up to 7 for level 4, 8 or more for level 5) @EDTRIAGEVSS@ Appropriate PPE including n 95, gown, gloves, goggles where worn when appropriate with this patient. Physical Exam Heart is regular. Lungs coarse breath sounds throughout. In respiratory distress DIAGNOSTIC RESULTS RADIOLOGY: Interpretation per the Radiologist below, if availableat the time of this note: XR chest 1 view Final Result FINDINGS AND IMPRESSION: SUPPORT DEVICES: EKG leads OSSEOUS STRUCTURES: Unremarkable. HEART AND MEDIASTINUM: The cardiomediastinal silhouette appears unchanged from the prior exam. LUNGS AND PLEURA: There is pulmonary venous congestion and interstitial edema. No consolidation. Suspected nodular density overlying the right lateral midlung. Recommend either nonemergent CT for further evaluation or short-term radiographic follow-up. No sizable pleural effusion. Report Dictated on Electronically Signed By: Jimbo Voss MD Electronically Signed Date/Time: 05/30/2024 9:11 AM EST ED BEDSIDE ULTRASOUND: Performed by ED Physician - none LABS: Labs Reviewed NT PRO BNP - Abnormal Result Value NT PRO BNP 533 (*) BASIC METABOLIC PANEL - Abnormal SODIUM 139 POTASSIUM 4.8 CHLORIDE 109 (*) CARBON DIOXIDE 20 (*) UREA NITROGEN 44 (*) CREATININE 1.28 (*) GLUCOSE 284 (*) CALCIUM 7.8 (*) ANION GAP 10 eGFR 61.3 CBC WITH AUTO DIFFERENTIAL - Abnormal Auto WBC 14.1 (*) RBC 3.66 (*) Hemoglobin 10.6 (*) Hematocrit 34.7 (*) MCV 94.8 MCH 29.0 MCHC 30.5 RDW 15.5 (*) Platelets 190 MPV 10.6 BLOOD GAS ARTERIAL - Abnormal pH, Arterial 7.290 (*) pCO2, Arterial 50.7 (*) pO2, Arterial 64.1 (*) HCO3, Arterial 23.8 O2 Sat, Arterial 89.5 (*) Base Excess, Arterial -3.0 CO2 Total 25.4 Hgb, blood gas 11.3 (*) Source Of Oxygen Heated High Flow D-DIMER,QUANTITATIVE - Abnormal D-DIMER, INNOVANCE 0.58 (*) Narrative: Innovance D-Dimer values of <0.50 mg/L FEU can be used in combination with a pre-test probability model (e.g. Well's) to exclude pulmonary embolism (PE) disease, as well as an aid in the diagnosis of deep vein thrombosis (DVT). MANUAL DIFFERENTIAL - Abnormal Adjusted WBC 14.1 (*) Neutrophils % 83 (*) Bands % 7 (*) Lymphocytes % 2 (*) Monocytes % 8 Absolute Neutrophil Count 12.7 (*) Segs Absolute 12.7 (*) Bands Absolute 1.0 (*) Lymphocytes Absolute 0.3 (*) Monocytes Absolute 1.1 (*) Anisocytosis Slight (*) Polychromasia Slight (*) Ovalocytes Slight (*) WBC Morphology Normal PLT Morphology Normal Total Counted 101 Neutrophils Manual 84 Lymphocytes Manual 2 Monocytes Manual 8 Bands Manual 7 Differential Method Manual differential performed POCT GLUCOSE METER UNSOLICITED RESULTS - Abnormal Glucose 247 (*) Narrative: Performed by: [facility], [address] [place] [address] CLIA ID: [id number] SARS-COV-2, FLU A/B, AND RSV COMBO - Normal SARS-CoV-2 Not Detected Respiratory Syncytial Virus Not Detected Influenza A Not Detected Influenza B Not Detected Narrative: Methodology: real-time, RT-PCR The SARS-CoV-2, Flu A/B, and RSV Combo assay is intended for in vitro diagnostic use under the FDA Emergency Use Authorization (EUA). This test has not been FDA cleared or approved. In compliance with this authorization, please visit www.fda.gov/media/644580/download or www.fda.gov/media/809616/download to access the applicable information sheets. LACTIC ACID WITH REFLEX - Normal LACTIC ACID 1.4 HIGH SENSITIVITY TROPONIN, SERIAL BASELINE - Normal Troponin HS Serial Baseline 13 HIGH SENSITIVITY TROPONIN, SERIAL, SECOND TEST - Normal 2h Troponin HS (Serial 2nd Troponin) 17 BLOOD CULTURE BLOOD CULTURE RESPIRATORY PATHOGENS PANEL BY PCR LEGIONELLA AND STREPTOCOCCUS URINE ANTIGEN, ORDERABLE Narrative: The following orders were created for panel order Legionella and Streptococcus Urine Antigen. Procedure Abnormality Status --------- ------ Legionella and Streptoco...[[id number]] Urine Hold Cup[[id number]] Please view results for these tests on the individual orders. MRSA BY PCR LEGIONELLA AND STREPTOCOCCUS URINE ANTIGEN BLOOD GAS ARTERIAL HIGH SENSITIVITY TROPONIN, SERIAL, THIRD TEST COMPLETE URINALYSIS WITH REFLEX TO CULTURE Narrative: The following orders were created for panel order Complete Urinalysis with reflex to Culture. Procedure Abnormality Status --------- ------ Complete Urinalysis[[id number]] Please view results for these tests on the individual orders. URINE HOLD CUP COMPLETE URINALYSIS All other labs were within normal range or not returned as of thisdictation. EMERGENCYDEPARTMENT COURSE and DIFFERENTIAL DIAGNOSIS/MDM: Vitals: Vitals: 05/30/24 1030 05/30/24 1100 05/30/24 1115 05/30/24 1200 BP: 126/71 124/61 124/61 (!) 99/45 BP Location: Left arm Left arm Patient Position: Lying Lying Pulse: 103 105 105 102 Resp: 19 14 Temp: 36.4 C (97.6 F) TempSrc: Oral SpO2: 96% (!) 90% 99% Weight: Height: Medical Decision Making Problems Addressed: Acute hypercapnic respiratory failure (HCC): complicated acute illness or injury Amount and/or Complexity of Data Reviewed Labs: ordered. Radiology: ordered. ECG/medicine tests: ordered. Risk Prescription drug management. Decision regarding hospitalization. EMERGENCY DEPARTMENT COURSE and DIFFERENTIAL DIAGNOSIS/MDM: Vitals: Vitals: 05/30/24 1030 05/30/24 1100 05/30/24 1115 05/30/24 1200 BP: 126/71 124/61 124/61 (!) 99/45 BP Location: Left arm Left arm Patient Position: Lying Lying Pulse: 103 105 105 102 Resp: 19 14 Temp: 36.4 C (97.6 F) TempSrc: Oral SpO2: 96% (!) 90% 99% Weight: Height: Medical Decision Making: He is acidotic with pCO2 of 50.7. 11,000 white blood cell count. Elevated creatinine BUN. Patient was given breathing treatment steroids. Given meropenem and vancomycin. Blood cultures were obtained. Patient has a lactic acid of 1.4. Chest x-ray per my interpretation shows vascular congestion. Patient was given [address] Willis ICU he is khushi accept the patient and will put him on noninvasive. COVID influenza is negative. Further details please see DERICK note. Age-adjusted D-dimer is negative. Patient has improved he is awake and alert improving on the high flow oxygen but is starting to retain so that is why Dr. Willis is gone except him and place him on NIV but does not require intubation at this time. EKG per my interpretation sinus tachycardia left anterior fascicular block borderline T wave abnormalities laterally. ED Medications managed: Medications vancomycin (Vancocin) 2500 mg in 0.9% sodium chloride 500 mL IVPB (compounded premix) (2,500 mg IntraVENous New Bag 05/30/24 1050) mupirocin (Bactroban) 2 % ointment 1 Application (has no administration in time range) naloxone (Narcan) injection 0.4 mg (has no administration in time range) ondansetron ODT (Zofran-ODT) disintegrating tablet 4 mg (has no administration in time range) Or ondansetron (Zofran) injection 4 mg (has no administration in time range) enoxaparin (Lovenox) syringe 30 mg (has no administration in time range) ipratropium-albuterol (Duo-Neb) 0.5-2.5 mg/3 mL nebulizer solution 3 mL (3 mL Nebulization Given 05/30/24 1226) guaiFENesin (Mucinex) 12 hr tablet 600 mg (has no administration in time range) pantoprazole (ProtoNix) EC tablet 40 mg (has no administration in time range) acetaminophen (Tylenol) tablet 1,000 mg (has no administration in time range) polyethylene glycol (PEG) 3350 (Miralax) packet 17 g (has no administration in time range) senna-docusate sodium (Senokot-S) 8.6-50 MG tablet 1 tablet (has no administration in time range) insulin glargine (Lantus) injection 44 Units (has no administration in time range) insulin regular (HumuLIN R,NovoLIN R) injection 0-12 Units (has no administration in time range) pregabalin (Lyrica) capsule 150 mg (has no administration in time range) pancrelipase (Qie-Mlwt-Qwfs) (Creon) 86271-677335 units per capsule 1 capsule (has no administration in time range) tamsulosin (Flomax) 24 hr capsule 0.4 mg (has no administration in time range) carvedilol (Coreg) tablet 6.25 mg (has no administration in time range) aspirin EC tablet 81 mg (has no administration in time range) glucose oral gel 15 g (has no administration in time range) dextrose 50 % solution 12.5 g (has no administration in time range) glucagon (human recombinant) injection 1 mg (has no administration in time range) dextrose 5 % infusion (has no administration in time range) cefepime (Maxipime) 2,000 mg in sodium chloride 0.9 % 50 mL IVPB Mini-Bag Plus (has no administration in time range) vancomycin (Vancocin) 1,000 mg in sodium chloride 0.9 % 250 mL IVPB (has no administration in time range) methylPREDNISolone sod suc (PF) (SOLU-Medrol) 40 MG injection 40 mg (has no administration in time range) ipratropium-albuterol (Duo-Neb) 0.5-2.5 mg/3 mL nebulizer solution 3 mL (3 mL Nebulization Given 05/30/24 0940) methylPREDNISolone sod suc (PF) (SOLU-Medrol) 40 MG injection 40 mg (40 mg IntraVENous Given 05/30/24 0923) meropenem (Merrem) 2,000 mg in sodium chloride 0.9 % 100 mL IVPB (0 mg IntraVENous Stopped 05/30/24 1047) furosemide (Lasix) injection 40 mg (40 mg IntraVENous Given 05/30/24 1050) CRITICAL CARE TIME Total Critical Care time was at least 35 minutes, excluding separately reportable procedures. There was a high probability of clinically significant/life threatening deterioration in the patient's condition which required my urgentintervention. PROCEDURES: Unless otherwise noted below, none Procedures IMPRESSION 1. Acute hypercapnic respiratory failure (HCC) 2. Hypercapnia 3. Hypoxia DISPOSITION/PLAN DISPOSITION Admit 05/30/2024 11:29:26 AM PATIENT REFERRED TO: No follow-up provider specified. DISCHARGE MEDICATIONS: Current Discharge Medication List @[facility]([id number]:LAST:1)@ (Comment: Please notethis report has been produced using speech recognition software and may contain errors related to that system including errors in grammar, punctuation, and spelling, as well as words and phrases that may be inappropriate.If there is any questions or concerns please feel free to contact the dictating provider for clarification). Arsh Mar MD (electronically signed) Attending Emergency Physician Arsh Mar MD 05/30/24 1312 [facility] 05-30-2024 Physician Emergency department Note EMERGENCY DEPARTMENT ENCOUNTER Pt Name: James Reyes Birthdate 1955 Date of evaluation: 05/30/2024 ED Provider: Jerri Us PA-C CHIEF COMPLAINT Chief Complaint Patient presents with Vomiting Shortness of Breath HISTORY OF PRESENT ILLNESS (Location/Symptom, Timing/Onset, Context/Setting, Quality, Duration, Modifying Factors, Severity) Note limiting factors. I wore appropriate PPE for the entirety of this encounter. HPI James Reyes is a 68 y.o. male who presents to the emergency department from a fpc facility for evaluation of nausea, vomiting, shortness of breath and concerns for possible PE. Patient does not move around much and they noticed that he was short of breath, arrives to the ED via EMS and hypoxic on arrival. He was placed on 4 L nasal cannula and remained 88%, he was placed on a nonrebreather and given a breathing treatment and route. Patient requiring high flow oxygen arrival to the ED. He is somnolent. He is not on oxygen at baseline. Nursing Notes were reviewed. Limitations to history: None Outside historians: None REVIEW OF SYSTEMS Review of Systems 14 systems reviewed, positives and pertinent negatives as per HPI. All other systems were reviewed and are negative. PAST MEDICAL HISTORY Past Medical History: Diagnosis Date Acute kidney injury (HCC) 09/11/2015 CAD in [place] artery 08/08/2017 COPD (chronic obstructive pulmonary disease) (HCC) Developmental disorder Diabetes mellitus (HCC) Esophageal reflux Gastritis see EGD on 03/29/2016 GERD (gastroesophageal reflux disease) Hyperlipidemia IBS (irritable bowel syndrome) Mixed Obesity Osteoarthritis Pain management Plantar fasciitis, bilateral Unspecified sleep apnea Urinary retention SURGICAL HISTORY Past Surgical History: Procedure Laterality Date CHOLECYSTECTOMY 03/29/20162010 COLONOSCOPY 05/23/2017 COLONOSCOPY 03/29/2016, repeat in 10 years, Dr. Ness, normal except internal hemorrhoid COLONOSCOPY N/A 07/18/2022 Performed by David Chen MD at [facility] OR CORONARY ARTERY BYPASS GRAFT FOOT SURGERY Left 2015 HEMORRHOID SURGERY 1998 INNER EAR SURGERY tube placement in ears LAYERED WOUND CLOSURE N/A 10/16/2017 sternal wound debridment and closure with wound vac OTHER SURGICAL HISTORY 10/24/2017 I&D sternal wound with flap OTHER SURGICAL HISTORY punching bag removal THYROID SURGERY nodule removal 2010 TONSILLECTOMY (HISTORICAL) UPPER GASTROINTESTINAL ENDOSCOPY 04/01/2016 gastritis, duodentitis WISDOM TOOTH EXTRACTION CURRENT MEDICATIONS Current Discharge Medication List CONTINUE these medications which have NOT CHANGED Details aspirin 81 MG chewable tablet Chew 81 mg daily. atorvastatin (Lipitor) 80 MG tablet Take 80 mg by mouth in the morning. cholestyramine (Questran) 4 g packet Take 1 packet by mouth in the morning and 1 packet at noon and 1 packet in the evening. Take with meals. cilostazol (Pletal) 50 MG tablet Take 50 mg by mouth 2 times daily. dicyclomine (Bentyl) 10 MG capsule Take 10 mg by mouth 3 times daily. famotidine (Pepcid) 20 MG tablet Take 20 mg by mouth in the morning. finasteride (Proscar) 5 MG tablet Take 5 mg by mouth in the morning. insulin glargine (Lantus) 100 UNIT/ML injection Inject 48 Units under the skin in the morning. Insulin Lispro (Humalog) 100 UNIT/ML solution injection Inject 16 Units under the skin in the morning and 16 Units at noon and 16 Units in the evening. pregabalin (Lyrica) 150 MG capsule Take 1 capsule (150 mg) by mouth 2 times daily. Qty: 30 capsule, Refills: 0 Associated Diagnoses: Pain in both knees, unspecified chronicity tamsulosin (Flomax) 0.4 MG 24 hr capsule Take 0.4 mg by mouth daily. acetaminophen (Tylenol) 325 MG tablet Take 1,000 mg by mouth 3 times daily. Advair Diskus 250-50 MCG/ACT aerosol powder albuterol (2.5 MG/3ML) 0.083% nebulizer solution Inhale 2.5 mg. albuterol 108 (90 Base) MCG/ACT inhaler Inhale 2 puffs every 6 hours as needed. carvedilol (Coreg) 6.25 MG tablet Take 1 tablet (6.25 mg) by mouth in the morning and 1 tablet (6.25 mg) in the evening. Take with meals. Qty: 180 tablet, Refills: 3 empagliflozin (Jardiance) 25 MG Take 25 mg by mouth daily. ergocalciferol (Vitamin D-2) 1.25 MG (03529 UT) capsule Take 1.25 mg by mouth 1 (one) time per week. Every Monday ezetimibe (Zetia) 10 MG tablet Take 10 mg by mouth Nightly. fluticasone (Flonase) 50 MCG/ACT nasal spray Administer 1 spray into each nostril daily. Shake gently. Before first use, prime pump. After use, clean tip and replace cap. ibuprofen 600 MG tablet Take 600 mg by mouth every 6 hours as needed for mild pain (1-3). Incruse Ellipta 62.5 MCG/ACT inhalation Inhale 1 puff daily. Menthol, Topical Analgesic, (Biofreeze Cool The Pain) 4 % gel Apply topically every 12 hours as needed (lower back). metFORMIN (Glucophage) 500 MG tablet Take 500 mg by mouth 2 times daily (with meals). nabumetone (Relafen) 500 MG tablet Take 750 mg by mouth 2 times daily. nitroglycerin (Nitrostat) 0.[address] 0.4 mg under the tongue every 5 minutes as needed for chest pain. nystatin (Mycostatin) cream pancrelipase, Kbd-Rsxu-Czoo, (Creon) 71975-01713 units capsule Take by mouth 3 times daily (with meals). tiotropium (Spiriva) [address] 1 capsule into inhaler and inhale in the morning. 2 puffs. ALLERGIES Penicillins and Tetracyclines & related FAMILY HISTORY Family History Problem Relation Name Age of Onset Heart attack Mother 61.00 Heart disease Father Other ([id number]) Brother accident Coronary artery disease Father Diabetes Father SOCIAL HISTORY Social History Socioeconomic History Marital status: Single Tobacco Use Smoking status: Every Day Current packs/day: 1.00 Average packs/day: 1 pack/day for 51.1 years (51.1 ttl pk-yrs) Types: Cigarettes Start date: 04/28/1973 Smokeless tobacco: Never Vaping Use Vaping status: Never Used Substance and Sexual Activity Alcohol use: No Alcohol/week: 0.0 standard drinks of alcohol Drug use: No Comment: caffeine use: decaf coffee sometimes Social Drivers of Health Transportation Needs: No Transportation Needs (11/30/2023) PRAPARE - Transportation Lack of Transportation (Medical): No Lack of Transportation (Non-Medical): No Intimate Partner Violence: Not At Risk (11/30/2023) Humiliation, Afraid, Rape, and Kick questionnaire Fear of Current or Ex-Partner: No Emotionally Abused: No Physically Abused: No Sexually Abused: No Housing Stability: Low Risk (11/30/2023) Housing Stability Vital Sign Unable to Pay for Housing in the Last Year: No Number of Times Moved in the Last Year: 0 Homeless in the Last Year: No SCREENINGS [place] Coma Scale Best Eye Response: Spontaneous Best Verbal Response: Oriented Best Motor Response: Follows commands [place] Coma Scale Score: 15 PHYSICAL EXAM ED Triage Vitals [05/30/24 0839] Temp Heart Rate Resp BP 36.7 C (98 F) 110 19 110/56 SpO2 Temp Source Heart Rate Source Patient Position (!) 90 % Oral Monitor Sitting BP Location FiO2 (%) Left arm -- Physical Exam Vitals and nursing note reviewed. Constitutional: General: He is in acute distress. Appearance: He is well-developed. HENT: Head: Normocephalic and atraumatic. Eyes: Conjunctiva/sclera: Conjunctivae normal. Cardiovascular: Rate and Rhythm: Normal rate and regular rhythm. Heart sounds: No murmur heard. Pulmonary: Effort: Respiratory distress present. Breath sounds: Decreased breath sounds and wheezing present. Comments: Hypoxic on RA - requiring high flow Abdominal: Palpations: Abdomen is soft. Tenderness: There is no abdominal tenderness. Musculoskeletal: General: No swelling. Cervical back: Neck supple. Skin: General: Skin is warm and dry. Capillary Refill: Capillary refill takes less than 2 seconds. Psychiatric: Mood and Affect: Mood normal. DIAGNOSTIC RESULTS RADIOLOGY (Per Emergency Physician): Interpretation per the Radiologist below, if available at the time of this note: XR chest 1 view Final Result FINDINGS AND IMPRESSION: SUPPORT DEVICES: EKG leads OSSEOUS STRUCTURES: Unremarkable. HEART AND MEDIASTINUM: The cardiomediastinal silhouette appears unchanged from the prior exam. LUNGS AND PLEURA: There is pulmonary venous congestion and interstitial edema. No consolidation. Suspected nodular density overlying the right lateral midlung. Recommend either nonemergent CT for further evaluation or short-term radiographic follow-up. No sizable pleural effusion. Report Dictated on Electronically Signed By: Jimbo Voss MD Electronically Signed Date/Time: 05/30/2024 9:11 AM EST LABS: Labs Reviewed NT PRO BNP - Abnormal Result Value NT PRO BNP 533 (*) BASIC METABOLIC PANEL - Abnormal SODIUM 139 POTASSIUM 4.8 CHLORIDE 109 (*) CARBON DIOXIDE 20 (*) UREA NITROGEN 44 (*) CREATININE 1.28 (*) GLUCOSE 284 (*) CALCIUM 7.8 (*) ANION GAP 10 eGFR 61.3 CBC WITH AUTO DIFFERENTIAL - Abnormal Auto WBC 14.1 (*) RBC 3.66 (*) Hemoglobin 10.6 (*) Hematocrit 34.7 (*) MCV 94.8 MCH 29.0 MCHC 30.5 RDW 15.5 (*) Platelets 190 MPV 10.6 BLOOD GAS ARTERIAL - Abnormal pH, Arterial 7.290 (*) pCO2, Arterial 50.7 (*) pO2, Arterial 64.1 (*) HCO3, Arterial 23.8 O2 Sat, Arterial 89.5 (*) Base Excess, Arterial -3.0 CO2 Total 25.4 Hgb, blood gas 11.3 (*) Source Of Oxygen Heated High Flow D-DIMER,QUANTITATIVE - Abnormal D-DIMER, INNOVANCE 0.58 (*) Narrative: Innovance D-Dimer values of <0.50 mg/L FEU can be used in combination with a pre-test probability model (e.g. Well's) to exclude pulmonary embolism (PE) disease, as well as an aid in the diagnosis of deep vein thrombosis (DVT). MANUAL DIFFERENTIAL - Abnormal Adjusted WBC 14.1 (*) Neutrophils % 83 (*) Bands % 7 (*) Lymphocytes % 2 (*) Monocytes % 8 Absolute Neutrophil Count 12.7 (*) Segs Absolute 12.7 (*) Bands Absolute 1.0 (*) Lymphocytes Absolute 0.3 (*) Monocytes Absolute 1.1 (*) Anisocytosis Slight (*) Polychromasia Slight (*) Ovalocytes Slight (*) WBC Morphology Normal PLT Morphology Normal Total Counted 101 Neutrophils Manual 84 Lymphocytes Manual 2 Monocytes Manual 8 Bands Manual 7 Differential Method Manual differential performed BLOOD GAS ARTERIAL - Abnormal pH, Arterial 7.327 (*) pCO2, Arterial 42.5 pO2, Arterial 85.7 HCO3, Arterial 21.8 O2 Sat, Arterial 95.9 (*) Base Excess, Arterial -4.0 (*) CO2 Total 23.1 Hgb, blood gas 11.5 (*) Source Of Oxygen Bi-PAP POCT GLUCOSE METER UNSOLICITED RESULTS - Abnormal Glucose 247 (*) Narrative: Performed by: [facility], [address] [place] [id number] CLIA ID: [id number] SARS-COV-2, FLU A/B, AND RSV COMBO - Normal SARS-CoV-2 Not Detected Respiratory Syncytial Virus Not Detected Influenza A Not Detected Influenza B Not Detected Narrative: Methodology: real-time, RT-PCR The SARS-CoV-2, Flu A/B, and RSV Combo assay is intended for in vitro diagnostic use under the FDA Emergency Use Authorization (EUA). This test has not been FDA cleared or approved. In compliance with this authorization, please visit www.fda.gov/media/068199/download or www.fda.gov/media/094827/download to access the applicable information sheets. BLOOD CULTURE - Normal Blood Culture Blood culture incubation started Narrative: Blood Collection Site: Right Hand BLOOD CULTURE - Normal Blood Culture Blood culture incubation started Narrative: Blood Collection Site: Left Hand RESPIRATORY PATHOGENS PANEL BY PCR - Normal SARS-CoV-2 Not Detected Adenovirus Not Detected Coronavirus HKU1 Not Detected Coronavirus NL63 Not Detected Coronavirus 229E Not Detected Coronavirus OC43 Not Detected Human Metapneumovirus Not Detected Human Rhinovirus/Enterovirus Not Detected Influenza A Not Detected Influenza B Not Detected Parainfluenza 1 Not Detected Parainfluenza 2 Not Detected Parainfluenza 3 Not Detected Parainfluenza 4 Not Detected Respiratory Syncytial Virus Not Detected Bordetella pertussis Not Detected Bordetella parapertussis Not Detected Chlamydia pneumoniae Not Detected Mycoplasma pneumoniae Not Detected Narrative: Methodology: Multiplex PCR LACTIC ACID WITH REFLEX - Normal LACTIC ACID 1.4 HIGH SENSITIVITY TROPONIN, SERIAL BASELINE - Normal Troponin HS Serial Baseline 13 HIGH SENSITIVITY TROPONIN, SERIAL, SECOND TEST - Normal 2h Troponin HS (Serial 2nd Troponin) 17 HIGH SENSITIVITY TROPONIN, SERIAL, THIRD TEST - Normal 4h Troponin HS (Serial 3rd Troponin) 21 LEGIONELLA AND STREPTOCOCCUS URINE ANTIGEN, ORDERABLE Narrative: The following orders were created for panel order Legionella and Streptococcus Urine Antigen. Procedure Abnormality Status --------- ------ Legionella and Streptoco...[[id number]] Urine Hold Cup[[id number]] Please view results for these tests on the individual orders. MRSA BY PCR LEGIONELLA AND STREPTOCOCCUS URINE ANTIGEN COMPLETE URINALYSIS WITH REFLEX TO CULTURE Narrative: The following orders were created for panel order Complete Urinalysis with reflex to Culture. Procedure Abnormality Status --------- ------ Complete Urinalysis[[id number]] Please view results for these tests on the individual orders. URINE HOLD CUP COMPLETE URINALYSIS All other labs were within normal range or not returned as of this dictation. EMERGENCY DEPARTMENT COURSE and DIFFERENTIAL DIAGNOSIS/MDM: Vitals: Vitals: 05/30/24 1300 05/30/24 1400 05/30/24 1500 05/30/24 1600 BP: 97/65 113/64 108/62 116/63 BP Location: Patient Position: Pulse: 98 90 98 92 Resp: 13 17 12 16 Temp: TempSrc: SpO2: 99% 94% 97% 95% Weight: Height: Medications mupirocin (Bactroban) 2 % ointment 1 Application (1 Application Nasal Given 05/30/24 1400) naloxone (Narcan) injection 0.4 mg (has no administration in time range) ondansetron ODT (Zofran-ODT) disintegrating tablet 4 mg (has no administration in time range) Or ondansetron (Zofran) injection 4 mg (has no administration in time range) enoxaparin (Lovenox) syringe 30 mg (30 mg SubCUTAneous Given 05/30/24 1400) ipratropium-albuterol (Duo-Neb) 0.5-2.5 mg/3 mL nebulizer solution 3 mL (3 mL Nebulization Given 05/30/24 1608) guaiFENesin (Mucinex) 12 hr tablet 600 mg (600 mg Oral Given 05/30/24 1353) pantoprazole (ProtoNix) EC tablet 40 mg (40 mg Oral Given 05/30/24 1353) acetaminophen (Tylenol) tablet 1,000 mg (has no administration in time range) polyethylene glycol (PEG) 3350 (Miralax) packet 17 g (17 g Oral Not Given 05/30/24 1424) senna-docusate sodium (Senokot-S) 8.6-50 MG tablet 1 tablet (has no administration in time range) insulin glargine (Lantus) injection 44 Units (has no administration in time range) insulin regular (HumuLIN R,NovoLIN R) injection 0-12 Units (4 Units SubCUTAneous Given 05/30/24 1414) pregabalin (Lyrica) capsule 150 mg (150 mg Oral Given 05/30/24 1353) pancrelipase (Uzf-Foqa-Skpn) (Creon) 35927-727868 units per capsule 1 capsule (1 capsule Oral Not Given 05/30/24 1338) tamsulosin (Flomax) 24 hr capsule 0.4 mg (0.4 mg Oral Given 05/30/24 1353) carvedilol (Coreg) tablet 6.25 mg (has no administration in time range) aspirin EC tablet 81 mg (has no administration in time range) glucose oral gel 15 g (has no administration in time range) dextrose 50 % solution 12.5 g (has no administration in time range) glucagon (human recombinant) injection 1 mg (has no administration in time range) dextrose 5 % infusion (has no administration in time range) cefepime (Maxipime) 2,000 mg in sodium chloride 0.9 % 50 mL IVPB Mini-Bag Plus (has no administration in time range) vancomycin (Vancocin) 1,000 mg in sodium chloride 0.9 % 250 mL IVPB (has no administration in time range) methylPREDNISolone sod suc (PF) (SOLU-Medrol) 40 MG injection 40 mg (has no administration in time range) ipratropium-albuterol (Duo-Neb) 0.5-2.5 mg/3 mL nebulizer solution 3 mL (3 mL Nebulization Given 05/30/24 0940) methylPREDNISolone sod suc (PF) (SOLU-Medrol) 40 MG injection 40 mg (40 mg IntraVENous Given 05/30/24 0923) meropenem (Merrem) 2,000 mg in sodium chloride 0.9 % 100 mL IVPB (0 mg IntraVENous Stopped 05/30/24 1047) vancomycin (Vancocin) 2500 mg in 0.9% sodium chloride 500 mL IVPB (compounded premix) (0 mg IntraVENous Stopped 05/30/24 1414) furosemide (Lasix) injection 40 mg (40 mg IntraVENous Given 05/30/24 1050) ED care was supervised by Dr. Mar who independently examined and evaluated the patient. Please see their attestation note for further details. In brief, James Reyes is a 68 y.o. male who presented to the emergency department for shortness of breath and respiratory distress, placed on high flow oxygen arrival to the ED. He is presenting to the ED from a nursing facility. Sepsis protocol initiated with administration of IV antibiotics, blood cultures prior to. 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 nursing notes and medical records reviewed, PMH of CAD, stable angina, IBS, HLD, type 2 diabetes, HTN, COPD. Differential considerations included electrolyte derangement versus ACS versus TX versus PE versus pneumonia versus acidosis Initial medical management includes DuoNeb, steroids, vancomycin and meropenem Initial workup includes CBC, BMP, BNP, lactic acid, VBG, troponin, D-dimer, chest x-ray, EKG Lab workup results CBC shows a leukocytosis of 14.1, anemia of 10.6. BMP shows a BUN of 44, no anion gap, CO2 of 20. Acidosis on VBG of 7.3-7. Troponin is 13. There is a mild JESSIKA. BNP is 533. D-dimer is 0.58, no PE. COVID flu RSV is negative. Imaging results per radiology chest x-ray demonstrates: There is pulmonary venous congestion and interstitial edema. No consolidation. Suspected nodular density overlying the right lateral midlung. Recommend either nonemergent CT for further evaluation or short-term radiographic follow-up. No sizable pleural effusion. Upon reassessment patient is more awake and alert and answering questions. States he is not on oxygen at baseline. Continuously requiring NIV given this I see will be down to evaluate the patient. Patient evaluated by Dr. Willis with ICU who accept the patient to the ICU. Please refer to their note for the details regarding this patient's hospital course. PROCEDURES: Unless otherwise noted below, none Procedures FINAL IMPRESSION 1. Acute hypercapnic respiratory failure (HCC) 2. Hypercapnia 3. Hypoxia DISPOSITION Admit 05/30/2024 11:29:26 AM PATIENT REFERRED TO: No follow-up provider specified. DISCHARGE MEDICATIONS: Current Discharge Medication List (Comment: Please note this report has been produced using speech recognition software and may contain errors related to that system including errors in grammar, punctuation, and spelling, as well as words and phrases that may be inappropriate. If there are any questions or concerns please feel free to contact the dictating provider for clarification.) Jerri Us PA-C (electronically signed) Emergency Medicine Provider Jerri Us PA-C 05/30/24 1636 Cosigned by Arsh Mar MD at 05/30/2024 5:23 PM EST [facility] Work Phone: 05-13-2024 History of Present illness Narrative Images from the original note were not included. Pepe Marino MD 05/13/2024 at 1:36 PM UROLOGY INITIAL OFFICE VISIT PATIENT NAME: James Reyes DATE OF : 1955 TODAY'S DATE: 05/13/2024 Chief Complaint: Chief Complaint Patient presents with New Patient Urinary Incontinence Sometimes he can feel when he has to go but He can't make it in time. "I'm tired of wetting my pants." Urinary Frequency Unable to give a urine sample HPI Mr. Reyes is a 68 y.o. male who presents with bph, hx gerd, copd dm, cad s/p cabg on proscar and flomax 12/03/23-urine culture 100k proteus 03/08/24-creat 1.01 bun 22 05/13/24-IOV-inc urge despite flomax and proscar. Noct x 3, hx uti Hx of elevated psa, uti urge inc failed detrol, and vesicare. Hx of large pvr. Review of Systems Constitutional: Negative for unexpected weight change. HENT: Negative for ear pain and trouble swallowing. Eyes: Negative for pain and discharge. Respiratory: Negative for shortness of breath and wheezing. Cardiovascular: Negative for chest pain and palpitations. Gastrointestinal: Negative for anal bleeding and rectal pain. Endocrine: Negative for cold intolerance and heat intolerance. Genitourinary: See HPI Skin: Negative for rash. Neurological: Negative for tremors and weakness. Psychiatric/Behavioral: Negative for suicidal ideas. The patient is not hyperactive. Past Medical History: Past Medical History: Diagnosis Date Acute kidney injury (HCC) 09/11/2015 CAD in [place] artery 08/08/2017 COPD (chronic obstructive pulmonary disease) (HCC) Developmental disorder Diabetes mellitus (HCC) Esophageal reflux Gastritis see EGD on 03/29/2016 GERD (gastroesophageal reflux disease) Hyperlipidemia IBS (irritable bowel syndrome) Mixed Obesity Osteoarthritis Pain management Plantar fasciitis, bilateral Unspecified sleep apnea Urinary retention Past Surgical History: Past Surgical History: Procedure Laterality Date CHOLECYSTECTOMY 03/29/20162010 COLONOSCOPY 05/23/2017 COLONOSCOPY 03/29/2016, repeat in 10 years, Dr. Ness, normal except internal hemorrhoid COLONOSCOPY N/A 07/18/2022 Performed by David Chen MD at [facility] OR CORONARY ARTERY BYPASS GRAFT FOOT SURGERY Left 2015 HEMORRHOID SURGERY 1997 INNER EAR SURGERY tube placement in ears LAYERED WOUND CLOSURE N/A 10/16/2017 sternal wound debridment and closure with wound vac OTHER SURGICAL HISTORY 10/24/2017 I&D sternal wound with flap OTHER SURGICAL HISTORY punching bag removal THYROID SURGERY nodule removal 2010 TONSILLECTOMY (HISTORICAL) UPPER GASTROINTESTINAL ENDOSCOPY 04/01/2016 gastritis, duodentitis WISDOM TOOTH EXTRACTION Current Medications: Prior to Admission medications Medication Sig Start Date End Date Taking? Authorizing Provider acetaminophen (Tylenol) 325 MG tablet Take 1,000 mg by mouth 3 times daily. 07/28/21 Yes Historical Provider, Advair Diskus 250-50 MCG/ACT aerosol powder 01/21/23 Yes Historical Provider, albuterol (2.5 MG/3ML) 0.083% nebulizer solution Inhale 2.5 mg. 07/28/21 Yes Historical Provider, albuterol 108 (90 Base) MCG/ACT inhaler Inhale 2 puffs every 6 hours as needed. 11/24/16 Yes Historical Provider, aspirin 81 MG chewable tablet Chew 81 mg daily. 08/26/21 Yes Historical Provider, atorvastatin (Lipitor) 80 MG tablet Take 80 mg by mouth in the morning. 07/29/21 Yes Historical Provider, carvedilol (Coreg) 6.25 MG tablet Take 1 tablet (6.25 mg) by mouth in the morning and 1 tablet (6.25 mg) in the evening. Take with meals. Patient taking differently: Take 3.125 mg by mouth 2 times daily (with meals). 02/22/23 Yes Suzy Corcoran MD cholestyramine (Questran) 4 g packet Take 1 packet by mouth in the morning and 1 packet at noon and 1 packet in the evening. Take with meals. Yes Historical Provider, cilostazol (Pletal) 50 MG tablet Take 50 mg by mouth 2 times daily. Yes Historical Provider, dicyclomine (Bentyl) 10 MG capsule Take 10 mg by mouth 3 times daily. 02/01/23 Yes Historical Provider, empagliflozin (Jardiance) 25 MG Take 25 mg by mouth daily. Yes Historical Provider, ergocalciferol (Vitamin D-2) 1.25 MG (54386 UT) capsule Take 1.25 mg by mouth 1 (one) time per week. Every Monday Yes Historical ProviderMD ezetimibe (Zetia) 10 MG tablet Take 10 mg by mouth Nightly. 08/26/21 Yes Historical ProviderMD famotidine (Pepcid) 20 MG tablet Take 20 mg by mouth in the morning. 08/26/21 Yes Historical Provider, finasteride (Proscar) 5 MG tablet Take 5 mg by mouth in the morning. 08/26/21 Yes Historical ProviderMD fluticasone (Flonase) 50 MCG/ACT nasal spray Administer 1 spray into each nostril daily. Shake gently. Before first use, prime pump. After use, clean tip and replace cap. Yes Historical Provider, ibuprofen 600 MG tablet Take 600 mg by mouth every 6 hours as needed for mild pain (1-3). Yes Historical Provider, Incruse Ellipta 62.5 MCG/ACT inhalation Inhale 1 puff daily. 04/29/24 Yes Historical Provider, insulin glargine (Lantus) 100 UNIT/ML injection Inject 48 Units under the skin in the morning. 08/26/21 Yes Historical ProviderMD Insulin Lispro (Humalog) 100 UNIT/ML solution injection Inject 16 Units under the skin in the morning and 16 Units at noon and 16 Units in the evening. 08/26/21 Yes Historical ProviderMD Menthol, Topical Analgesic, (Biofreeze Cool The Pain) 4 % gel Apply topically every 12 hours as needed (lower back). Yes Historical Provider, metFORMIN (Glucophage) 500 MG tablet Take 500 mg by mouth 2 times daily (with meals). Yes Historical Provider, nabumetone (Relafen) 500 MG tablet Take 750 mg by mouth 2 times daily. Yes Historical Provider, nitroglycerin (Nitrostat) 0.[address] 0.4 mg under the tongue every 5 minutes as needed for chest pain. Yes Historical Provider, nystatin (Mycostatin) cream 11/08/22 Yes Historical Provider, pancrelipase, Qzc-[id number]-Sxcz, (Creon) 20591-95730 units capsule Take by mouth 3 times daily (with meals). Yes Historical Provider, pregabalin (Lyrica) 150 MG capsule Take 1 capsule (150 mg) by mouth 2 times daily. 12/05/23 Yes Romario Munoz MD tamsulosin (Flomax) 0.4 MG 24 hr capsule Take 0.4 mg by mouth daily. 05/21/20 Yes Historical Provider, tiotropium (Spiriva) [address] 1 capsule into inhaler and inhale in the morning. 2 puffs. Yes Historical Provider, Allergies: Penicillins and Tetracyclines & related Social History: Social History Socioeconomic History Marital status: Single Spouse name: Not on file Number of children: Not on file Years of education: Not on file Highest education level: Not on file Occupational History Not on file Tobacco Use Smoking status: Every Day Current packs/day: 1.00 Average packs/day: 1 pack/day for 51.0 years (51.0 ttl pk-yrs) Types: Cigarettes Start date: 04/28/1973 Smokeless tobacco: Never Vaping Use Vaping status: Never Used Substance and Sexual Activity Alcohol use: No Alcohol/week: 0.0 standard drinks of alcohol Drug use: No Comment: caffeine use: decaf coffee sometimes Sexual activity: Not on file Comment: single Other Topics Concern Not on file Social History Narrative Not on file Social Drivers of Health Financial Resource Strain: Not on file Food Insecurity: Not on file Transportation Needs: No Transportation Needs (11/30/2023) PRAPARE - Transportation Lack of Transportation (Medical): No Lack of Transportation (Non-Medical): No Physical Activity: Not on file Stress: Not on file Social Connections: Not on file Intimate Partner Violence: Not At Risk (11/30/2023) Humiliation, Afraid, Rape, and Kick questionnaire Fear of Current or Ex-Partner: No Emotionally Abused: No Physically Abused: No Sexually Abused: No Housing Stability: Low Risk (11/30/2023) Housing Stability Vital Sign Unable to Pay for Housing in the Last Year: No Number of Times Moved in the Last Year: 0 Homeless in the Last Year: No Family History: Family History Problem Relation Name Age of Onset Heart attack Mother 61.00 Heart disease Father Other ([id number]) Brother accident Coronary artery disease Father Diabetes Father VITALS: BP 100/50 (BP Location: Right arm, Patient Position: Sitting, BP Cuff Size: Large adult) Pulse 68 Ht 6' 1" (1.854 m) Wt 300 lb (136 kg) BMI 39.58 kg/m Physical Exam Constitutional: Patient is oriented to person, place, and time. Patient appears well-developed and well-nourished. No distress. HENT: Head: Normocephalic and atraumatic. Eyes: Pupils are equal, round, and reactive to light. EOM are normal. No scleral icterus. Neck: Normal range of motion. Neck supple. No JVD present. Cardiovascular: Normal rate and regular rhythm. Pulmonary/Chest: Effort normal. No respiratory distress. Abdominal: Soft. Exhibits no distension and no mass. There is no rebound. Genitourinary: No flank mass or tenderness Bladder non tender, non distended Musculoskeletal: Patient exhibits no edema or deformity. Neurological: Is alert and oriented to person, place, and time. Skin: Skin is warm and dry. Psychiatric: Has a normal mood and affect. Judgment normal. DATA: LABS: No results found for: "PSAFREE", PSAFREEPCT No results for input(s): "PSAFREE", "PSAFREEPCT" in the last 72 hours. No results found for: TESTOSTERONE Lab Results Component Value Date WBC 6.4 03/08/2024 HGB 11.4 (L) 03/08/2024 HCT 36.8 (L) 03/08/2024 MCV 95.8 03/08/2024 PLT 248 03/08/2024 Lab Results Component Value Date GLUCOSE 265 (H) 03/08/2024 CALCIUM 9.1 03/08/2024 NA 135 03/08/2024 K 4.0 03/08/2024 CO2 19 (L) 03/08/2024 CL 105 03/08/2024 BUN 22 (H) 03/08/2024 CREATININE 1.01 03/08/2024 No components found for: "LABURIN" @LASTPROCPOC@ Radiology Review: Impression: Diagnosis Plan 1. Elevated PSA PSA, Monitoring (Quest) PSA, Monitoring (Quest) 2. BPH with lower urinary tract symptoms without urinary obstruction 3. Urge incontinence 4. Gross hematuria 5. Recurrent UTI US retroperitoneum XR abdomen 1 view 6. Retention of urine, unspecified Bladder scan James Reyes is a 68 y.o. male with Bph Gross hematuria Elevated psa Hx uti Urge inc Dm Cad copd Plan: Bladder scan for pvr Renal us and kub Office cysto Psa Cont flomax 0.8 and proscar for now Follow up for renal us and kub, office cysto, psa now. Pepe Marino MD 05/13/24 1:36 PM PVR: 122 mL documented in this encounter [facility] 05-02-2024 Note Aydee from [email or web address] in [place] called to schedule the patient an appt for incontinence and frequency. They will fax over a referral and notes for the pt. Appt scheduled 05/13/[address] Marino in [place]. [facility] 05-02-2024 Telephone encounter Note Aydee from [email or web address] [facility] in [place] called to schedule the patient an appt for incontinence and frequency. They will fax over a referral and notes for the pt. Appt scheduled 05/13/[address] Marino in [place]. [facility] 05-02-2024 Miscellaneous Notes Aydee from [email or web address] [facility] in [place] called to schedule the patient an appt for incontinence and frequency. They will fax over a referral and notes for the pt. Appt scheduled 05/13/[address] Marino in [place]. documented in this encounter [facility] 03-08-2024 History of Present illness Narrative Images from the original note were not included. [facility] [place] [address] [facility] [address] Dept: [phone] Dept Visit type: Established : 1955 Reason for Visit: 6 Month Follow-up Assessment and Plan Coronary artery disease involving coronary bypass graft of [place] heart with chest pain. Bypass surgery in 06/2023: Negative dobutamine stress echocardiogram with normal ejection fraction. -He reports intermittent chest pain in the last week. This was very mild at 2/10 in intensity. Lasted a few minutes and occurred on and off through the day. Difficulty describing details of pain. He had no SOB or associated symptoms. no radiation of pain. This occurred at rest. Pain felt in left arm at times with it. He also had isolated left arm pain at night that went away. No change in pain with activity. He has no pain today. He had no recurrent pain this week. He tells he does not want additional testing at this time. I have asked that he request SL nitroglycerin from nursing staff if recurrent chest pain and ask that the call our office with update. Continue ASA, Atorvastatin, Coreg, PPI and PRN SL nitroglycerin. Will obtain labs for reversible causes. - ECG 12 lead - CLINIC PERFORMED- stable. - Magnesium - Basic metabolic panel - CBC auto differential Mixed hyperlipidemia - Treated. Continue atorvastatin Lab Results Component Value Date LDLCALC 33 11/30/2023 MINERVA -Untreated. Intolerant to CPAP Mildly dilated Aorta Echo 4Aorta: Normal sized sinuses of Valsalva. Mildly dilated ascending aorta. Ao ascending diameter is 4.0 cm. Prior echo 04/2022 4.3cm -Bp and heart rate controlled. Follow up for 6 month follow up with Dr. Sy . Call sooner if need arises. Subjective HPI James Reyes is seen today for 6 month follow up. He has history of COPD, DM, GERD, coronary artery disease, previous bypass surgery in 2014 and hyperlipidemia. He also has history of developmental disorder. 06/2023: Negative dobutamine stress echocardiogram with normal ejection fraction. He presents today feeling ok. He states he has been doing good since he was last seen. He reports intermittent chest pain in the last week. This was very mild at 2/10 in intensity. Lasted a few minutes and occurred on and off through the day. Difficulty describing details of pain. He had no SOB or associated symptoms. no radiation of pain. This occurred at rest. Pain felt in left arm at times with it. He also had isolated left arm pain at night that went away. No change in pain with activity. He has no pain today. He has ongoing SOB with exertion. He denies lightheadedness, dizziness, palpitations, orthopnea or PND. He states he can hear his heart pounding in his ear at times-infrequent. He has no recent falls or syncope. He is alone during visit today. Review of Systems Constitutional: Negative for activity change, chills, diaphoresis, fatigue and fever. HENT: Negative for nosebleeds and trouble swallowing. Heart pounding in ear at times Eyes: Negative for discharge and visual disturbance. Respiratory: Positive for cough (intermittent) and shortness of breath. Negative for apnea, chest tightness and wheezing. Cardiovascular: Positive for chest pain. Negative for palpitations and leg swelling. Gastrointestinal: Negative for abdominal distention, abdominal pain, blood in stool, diarrhea, nausea and vomiting. Endocrine: Negative for cold intolerance and heat intolerance. Genitourinary: Negative for hematuria. Musculoskeletal: Positive for arthralgias and gait problem. Negative for myalgias. Wheel chair and Rolator Skin: Negative for color change and rash. Neurological: Negative for dizziness, seizures, syncope, facial asymmetry, speech difficulty, weakness, light-headedness, numbness and headaches. Hematological: Bruises/bleeds easily. Psychiatric/Behavioral: Negative for dysphoric mood. Allergies Allergen Reactions Penicillins Other reaction(s): Other (See Comments), Unknown unknown Tetracyclines & Related Other reaction(s): Other (See Comments), Unknown unknown Outpatient Medications Prior to Visit Medication Sig Dispense Refill acetaminophen (Tylenol) 325 MG tablet Take 1,000 mg by mouth 3 times daily. Advair Diskus 250-50 MCG/ACT aerosol powder albuterol (2.5 MG/3ML) 0.083% nebulizer solution Inhale 2.5 mg. albuterol 108 (90 Base) MCG/ACT inhaler Inhale 2 puffs every 6 hours as needed. aspirin 81 MG chewable tablet Chew 81 mg daily. atorvastatin (Lipitor) 80 MG tablet Take 80 mg by mouth in the morning. carvedilol (Coreg) 6.25 MG tablet Take 1 tablet (6.25 mg) by mouth in the morning and 1 tablet (6.25 mg) in the evening. Take with meals. (Patient taking differently: Take 3.125 mg by mouth 2 times daily (with meals).) 180 tablet 3 cholestyramine (Questran) 4 g packet Take 1 packet by mouth in the morning and 1 packet at noon and 1 packet in the evening. Take with meals. cilostazol (Pletal) 50 MG tablet Take 50 mg by mouth 2 times daily. dicyclomine (Bentyl) 10 MG capsule Take 10 mg by mouth 3 times daily. empagliflozin (Jardiance) 25 MG Take 25 mg by mouth daily. ergocalciferol (Vitamin D-2) 1.25 MG (68704 UT) capsule Take 1.25 mg by mouth 1 (one) time per week. Every Monday ezetimibe (Zetia) 10 MG tablet Take 10 mg by mouth Nightly. famotidine (Pepcid) 20 MG tablet Take 20 mg by mouth in the morning. finasteride (Proscar) 5 MG tablet Take 5 mg by mouth in the morning. fluticasone (Flonase) 50 MCG/ACT nasal spray Administer 1 spray into each nostril daily. Shake gently. Before first use, prime pump. After use, clean tip and replace cap. ibuprofen 600 MG tablet Take 600 mg by mouth every 6 hours as needed for mild pain (1-3). insulin glargine (Lantus) 100 UNIT/ML injection Inject 48 Units under the skin in the morning. Insulin Lispro (Humalog) 100 UNIT/ML solution injection Inject 16 Units under the skin in the morning and 16 Units at noon and 16 Units in the evening. metFORMIN (Glucophage) 500 MG tablet Take 500 mg by mouth 2 times daily (with meals). nabumetone (Relafen) 500 MG tablet Take 750 mg by mouth 2 times daily. nitroglycerin (Nitrostat) 0.[address] 0.4 mg under the tongue every 5 minutes as needed for chest pain. nystatin (Mycostatin) cream pancrelipase, Lkd-[id number]-Pklh, (Creon) 74652-74844 units capsule Take by mouth 3 times daily (with meals). pregabalin (Lyrica) 150 MG capsule Take 1 capsule (150 mg) by mouth 2 times daily. 30 capsule 0 tamsulosin (Flomax) 0.4 MG 24 hr capsule Take 0.4 mg by mouth daily. tiotropium (Spiriva) [address] 1 capsule into inhaler and inhale in the morning. 2 puffs. Menthol, Topical Analgesic, (Biofreeze Cool The Pain) 4 % gel Apply topically every 12 hours as needed (lower back). (Patient not taking: Reported on 03/08/2024) No facility-administered medications prior to visit. Past Medical History: Diagnosis Date Acute kidney injury (HCC) 09/11/2015 CAD in [place] artery 08/08/2017 COPD (chronic obstructive pulmonary disease) (HCC) Developmental disorder Diabetes mellitus (HCC) Esophageal reflux Gastritis see EGD on 03/29/2016 GERD (gastroesophageal reflux disease) Hyperlipidemia IBS (irritable bowel syndrome) Mixed Obesity Osteoarthritis Pain management Plantar fasciitis, bilateral Unspecified sleep apnea Urinary retention Social History Tobacco Use Smoking status: Every Day Current packs/day: 1.00 Average packs/day: 1 pack/day for 50.9 years (50.9 ttl pk-yrs) Types: Cigarettes Start date: 04/28/1973 Smokeless tobacco: Never Substance Use Topics Alcohol use: No Alcohol/week: 0.0 standard drinks of alcohol Past Surgical History: Procedure Laterality Date CHOLECYSTECTOMY 03/29/20162010 COLONOSCOPY 05/23/2017 COLONOSCOPY 03/29/2016, repeat in 10 years, Dr. Ness, normal except internal hemorrhoid COLONOSCOPY N/A 07/18/2022 Performed by David Chen MD at [facility] OR CORONARY ARTERY BYPASS GRAFT FOOT SURGERY Left 2015 HEMORRHOID SURGERY 1997 INNER EAR SURGERY tube placement in ears LAYERED WOUND CLOSURE N/A 10/16/2017 sternal wound debridment and closure with wound vac OTHER SURGICAL HISTORY 10/24/2017 I&D sternal wound with flap OTHER SURGICAL HISTORY punching bag removal THYROID SURGERY nodule removal 2010 TONSILLECTOMY (HISTORICAL) UPPER GASTROINTESTINAL ENDOSCOPY 04/01/2016 gastritis, duodentitis WISDOM TOOTH EXTRACTION Family History Problem Relation Name Age of Onset Heart attack Mother 61.00 Heart disease Father Other ([id number]) Brother accident Coronary artery disease Father Diabetes Father Objective Vitals: 03/08/24 0832 BP: (!) 96/48 BP Location: Left arm Patient Position: Sitting BP Cuff Size: Adult Pulse: 77 SpO2: 95% Weight: 284 lb (129 kg) Height: 6' (1.829 m) Physical Exam Constitutional: Appearance: Normal appearance. He is obese. HENT: Head: Atraumatic. Mouth/Throat: Mouth: Mucous membranes are moist. Eyes: General: Right eye: No discharge. Left eye: No discharge. Cardiovascular: Rate and Rhythm: Normal rate and regular rhythm. Pulses: Normal pulses. Pulmonary: Effort: Pulmonary effort is normal. Breath sounds: Normal breath sounds. Abdominal: General: Bowel sounds are normal. Palpations: Abdomen is soft. Tenderness: There is no guarding. Comments: Obese abdomen Musculoskeletal: Right lower leg: Edema (1+ ankle) present. Left lower leg: Edema (1+ ankle) present. Skin: Capillary Refill: Capillary refill takes less than 2 seconds. Neurological: General: No focal deficit present. Mental Status: He is alert and oriented to person, place, and time. Psychiatric: Mood and Affect: Mood normal. Behavior: Behavior normal. Data Reviewed and Summarized EF BP Date Value Ref Range Status 11/30/2023 70 55 - 100 % Final Review of tests/labs Labs ordered for completion today. Echo 11/30/2023 Interpretation Summary Show Result Comparison Left Ventricle: Left ventricle size is normal. Mildly increased wall thickness. Normal left ventricular systolic function. EF by 2D Simpsons Biplane is 70%. Normal wall motion. Normal diastolic function. Average E/e' ratio is 7.80. Right Ventricle: Right ventricle size is normal. Normal systolic function. Aorta: Normal sized sinuses of Valsalva. Mildly dilated ascending aorta. Ao ascending diameter is 4.0 cm. No significant valvular abnormalities. CT head neck 11/2023 Distal internal carotid arteries: Unremarkable. Anterior cerebral arteries: Unremarkable. Middle cerebral arteries: Unremarkable. PATRICIA Mills CNP documented in this encounter [facility] 03-08-2024 Instructions PATRICIA Mills CNP - 03/08/2024 8:30 AM EST Begin using SL nitroglycerin PRN for chest pain. Please call office if having to use medication and please keep track of effectiveness of medication. Elevate legs when at rest Maintain a diet low in sodium Weigh patient weekly and call office if gaining more than 5lbs in one week Begin using compression hose on in the morning and off at night ( low- to moderate grade) Office number [phone] documented in this encounter [facility] 12-05-2023 Hospital course Narrative Images from the original note were not included. Hospitalist Discharge Summary James Reyes : 1955 Admit date: 11/29/2023 Discharge date: 12/05/2023 Admitting Physician: Lorenza Bowles MD Primary Care Physician: No primary care provider on file. Visit Status: admit Code Status: Full Code Acute, acute on chronic, unstable/uncontrolled chronic problems/discharge diagnoses: Mechanical fall Stable chronic problems affecting care, new non-acute discharge diagnoses: Anemia DM2 GERD HTN CAD Past Medical History: Diagnosis Date Acute kidney injury (HCC) 09/11/2015 CAD in [place] artery 08/08/2017 COPD (chronic obstructive pulmonary disease) (HCC) Developmental disorder Diabetes mellitus (HCC) Esophageal reflux Gastritis see EGD on 03/29/2016 GERD (gastroesophageal reflux disease) Hyperlipidemia IBS (irritable bowel syndrome) Mixed Obesity Osteoarthritis Pain management Plantar fasciitis, bilateral Unspecified sleep apnea Urinary retention Procedures: none Hospital Course: James is a 68 y.o. male with past medical history below who presents with chief complaint listed above. Pt was walking with his rollator on [place] to go get cigarettes. Pt lost his balance while walking and stumbled onto grass and fell backwards hitting his head. Denied loss of consciousness, vision changes, slurred speech, weakness/numbness in extremity, or nausea/vomiting. Will admit for further evaluation and management. MRI brain was negative for acute process. Echo showed nl EF. He was seen by PT who recommended snf and pt agreed and was able to be dc'd to snf at this time Consults: IP CONSULT TO CASE MANAGEMENT IP CONSULT TO NEUROLOGY IP WOUND CARE NURSE CONSULT TO EVAL Discharge Instructions: Diet: Dietary Orders (From admission, onward) Start Ordered 12/03/23 1151 Adult diet Regular; 5 carb choices (75 gm/meal); Low Fat/Low Chol/High Fiber/DEBBIE Diet effective now Question Answer Comment Diet type Regular Carbohydrate restriction: 5 carb choices (75 gm/meal) Diet Cardiac type: Low Fat/Low Chol/High Fiber/DEBBIE 12/03/23 1150 Activity: as tolerated Recommended Outpatient Tests: Disposition: Patient discharged in stable condition to snf . Greater than 31 minutes spent discharging the patient and coming up with patient discharge plan. Vitals: BP 157/61 (BP Location: Right arm, Patient Position: Lying) Pulse 56 Temp 36.3 C (97.3 F) (Temporal) Resp 18 Ht 6' 2" (1.88 m) Wt 279 lb (127 kg) SpO2 93% BMI 35.82 kg/m Pulse Ox: SpO2 Av % Min: 92 % Max: 97 % Supplemental O2: Physical Exam HENT: Mouth/Throat: Mouth: Mucous membranes are moist. Cardiovascular: Rate and Rhythm: Normal rate and regular rhythm. Pulmonary: Effort: Pulmonary effort is normal. Breath sounds: Normal breath sounds. Abdominal: General: Abdomen is flat. Bowel sounds are normal. Palpations: Abdomen is soft. Skin: General: Skin is warm. Neurological: General: No focal deficit present. Mental Status: He is alert and oriented to person, place, and time. LABS: Recent Labs 12/03/23 0525 12/04/23 0238 12/05/23 0148 NA 139 138 138 K 3.9 4.2 4.1 CL 114* 114* 112* CO2 20* 19* 20* BUN 19 18 16 CREATININE 0.93 0.93 0.86 GLUCOSE 134* 90 154* CALCIUM 8.4 8.6 8.6 Recent Labs 12/03/23 0525 12/04/23 0238 12/05/23 0148 WBC 4.2 4.1 4.5 RBC 3.36* 3.43* 3.49* HGB 10.2* 10.2* 10.5* HCT 32.5* 33.3* 33.6* MCV 96.7 97.1 96.3 MCH 30.4 29.7 30.1 MCHC 31.4 30.6 31.3 RDW 15.4* 15.5* 15.3* PLT 165 167 161 MPV 10.5 10.7 10.4 Discharge Medications: Medication List START taking these medications cefdinir 300 MG capsule Commonly known as: Omnicef Take 1 capsule (300 mg) by mouth 2 times daily for 3 days. CONTINUE taking these medications acetaminophen 325 MG tablet Commonly known as: Tylenol Advair Diskus 250-50 MCG/ACT aerosol powder Generic drug: Fluticasone-Salmeterol * albuterol 108 (90 Base) MCG/ACT inhaler * albuterol (2.5 MG/3ML) 0.083% nebulizer solution aspirin 81 MG chewable tablet atorvastatin 80 MG tablet Commonly known as: Lipitor Biofreeze Cool The Pain 4 % gel Generic drug: Menthol (Topical Analgesic) carvedilol 6.25 MG tablet Commonly known as: Coreg Take 1 tablet (6.25 mg) by mouth in the morning and 1 tablet (6.25 mg) in the evening. Take with meals. cholestyramine 4 g packet Commonly known as: Questran cilostazol 50 MG tablet Commonly known as: Pletal dicyclomine 10 MG capsule Commonly known as: Bentyl ergocalciferol 1.25 MG (81032 UT) capsule Commonly known as: Vitamin D-2 ezetimibe 10 MG tablet Commonly known as: Zetia famotidine 20 MG tablet Commonly known as: Pepcid finasteride 5 MG tablet Commonly known as: Proscar fluticasone 50 MCG/ACT nasal spray Commonly known as: Flonase ibuprofen 600 MG tablet insulin glargine 100 UNIT/ML injection Commonly known as: Lantus Insulin Lispro 100 UNIT/ML solution injection Commonly known as: Humalog Jardiance 25 MG Generic drug: empagliflozin nabumetone 500 MG tablet Commonly known as: Relafen nitroglycerin 0.4 MG SL tablet Commonly known as: Nitrostat nystatin cream Commonly known as: Mycostatin pancrelipase (Sce-Uxtq-Msjx) 88484-21579 units capsule Commonly known as: Creon pregabalin 150 MG capsule Commonly known as: Lyrica Take 1 capsule (150 mg) by mouth 2 times daily. tamsulosin 0.4 MG 24 hr capsule Commonly known as: Flomax tiotropium 18 MCG inhalation capsule Commonly known as: Spiriva * This list has 2 medication(s) that are the same as other medications prescribed for you. Read the directions carefully, and ask your doctor or other care provider to review them with you. STOP taking these medications clindamycin 150 MG capsule Commonly known as: Cleocin Where to Get Your Medications These medications were sent to [facility] - [place], [place] - [address], [place] [address] cefdinir 300 MG capsule You can get these medications from any pharmacy Bring a paper prescription for each of these medications pregabalin 150 MG capsule Recommended Follow-up: No follow-up provider specified. Complexity of Follow up: [] Moderate Complexity: follow up within 7-14 calendar days (73226) [x] Severe Complexity: follow up within 7 calendar days (61413) Follow up Testing, Pending results or Referrals at Transitional Care Visit: [x] yes [] no Instructions to MA: Please call patient on day after discharge (must document patient contacted within 2 business days of discharge). Follow up questions for MA: 1. Did you get medications filled and taking them as instructed from discharge? 2. Are you following your discharge instructions from your hospital stay? 3. Please confirm patient is scheduled for a follow up appointment within the above time frame. Signed: Romario Munoz MD Division of Hospitalist Medicine Inpatient Medical Services/[facility] [place] 12/05/2023, 4:56 PM documented in this encounter [facility] 12-05-2023 Note [facility] 12-05-2023 History of Present illness Narrative Images from the original note were not included. PHYSICAL THERAPY [facility] Name/MRN: James Reyes ([id number]) Date: 12/05/2023 Attempted treatment at 1201, pt sitting EOB, stating that he is going to [facility] later today, politely declining therapy at this time. Benjie Torres, PT Images from the original note were not included. PHYSICAL THERAPY [facility] Name/MRN: James Reyes ([id number]) Date: 12/04/2023 Attempted PT. Pt was sleeping soundly. Will re-attempt PT at later time/date as schedule permits. Heather Berkowitz, PROCESS IMPROVEMENT ANALYST Images from the original note were not included. OCCUPATIONAL THERAPY [facility] Initial Evaluation Name/MRN: James Reyes ([id number]) Evaluation Date: 12/04/2023 Date of : 1955 Admission Date: 11/29/2023 3:34 PM Age: 68 y.o. [facility]: [facility] Discharge Recommendation: Half-Way Facility Assessment IMPRESSION: ADL activity is limited to short standing bouts and within pivot distances x 2 person assist. LEs buckling when standing and pt with strong reliance on walker for UE support. Decreased safety and judgment also hindering ADL safety. OT recommending SNF at discharge to achieve highest function. Admitting Diagnosis: Fall, close head injury Performance Deficits /Impairments: Increased Pain, Decreased Functional Mobility, Decreased ADL status, Decreased Strength, Decreased Safety Awareness, Decreased Endurance, Decreased Balance, Decreased High Level IADLs, Decreased Cognition, Decreased Fine Motor Control, and Decreased Posture Prognosis: Fair Decision Making: Medium Complexity Subjective Pt is cooperative and agreeable to OT. Self-directive at times. C/o pain in "tailbone" and back. fuel cell technician in room notified to handoff to RN. Pain: Powers-Mathew Pain Ratin = Hurts little more Past Medical History: Past Medical History: Diagnosis Date Acute kidney injury (HCC) 09/11/2015 CAD in [place] artery 08/08/2017 COPD (chronic obstructive pulmonary disease) ([facility]) Developmental disorder Diabetes mellitus ([facility]) Esophageal reflux Gastritis see EGD on 03/29/2016 GERD (gastroesophageal reflux disease) Hyperlipidemia IBS (irritable bowel syndrome) Mixed Obesity Osteoarthritis Pain management Plantar fasciitis, bilateral Unspecified sleep apnea Urinary retention Past Surgical History: Past Surgical History: Procedure Laterality Date CHOLECYSTECTOMY 03/29/20162010 COLONOSCOPY 05/23/2017 COLONOSCOPY 03/29/2016, repeat in 10 years, Dr. Ness, normal except internal hemorrhoid COLONOSCOPY N/A 07/18/2022 Performed by David Chen MD at [facility] OR CORONARY ARTERY BYPASS GRAFT FOOT SURGERY Left 2015 HEMORRHOID SURGERY 1997 INNER EAR SURGERY tube placement in ears LAYERED WOUND CLOSURE N/A 10/16/2017 sternal wound debridment and closure with wound vac OTHER SURGICAL HISTORY 10/24/2017 I&D sternal wound with flap OTHER SURGICAL HISTORY punching bag removal THYROID SURGERY nodule removal 2010 TONSILLECTOMY (HISTORICAL) UPPER GASTROINTESTINAL ENDOSCOPY 04/01/2016 gastritis, duodentitis WISDOM TOOTH EXTRACTION Admission Diagnosis: Patient Active Problem List Diagnosis Date Noted IBS (irritable bowel syndrome) 08/08/2017 Closed head injury, initial encounter 11/29/2023 Uncontrolled type 2 diabetes mellitus with hyperglycemia, with long-term current use of insulin ([facility]) 10/30/2017 Uncontrolled type 2 diabetes mellitus with complication, with long-term current use of insulin 10/25/2017 Pseudomonas aeruginosa infection 10/20/2017 Sternal wound dehiscence 10/20/2017 care home (current) use of antibiotics 10/20/2017 Wound disruption, post-op, skin, initial encounter 10/16/2017 Dyslipidemia 08/08/2017 Knee osteoarthritis 08/08/2017 Insulin dependent diabetes mellitus 08/08/2017 MINERVA (obstructive sleep apnea) 08/08/2017 Tobacco abuse 08/08/2017 CAD in [place] artery 08/08/2017 Angina at rest ([facility]) 08/08/2017 Hypertensive heart disease 08/08/2017 COPD (chronic obstructive pulmonary disease) ([facility]) 08/08/2017 Chest pain 08/06/2017 Colitis, collagenous 06/15/2017 Anemia 05/23/2017 Gastroesophageal reflux disease without esophagitis 05/23/2017 Colitis 05/21/2017 Esophagitis, reflux 04/26/2017 Type 2 diabetes, uncontrolled, with neuropathy 04/26/2017 Hiatal hernia 02/21/2017 Arthritis of foot, degenerative 01/09/2017 Enlarged prostate with lower urinary tract symptoms (LUTS) 09/07/2016 Morbid obesity (HCC) 08/12/2016 Shoulder pain, left 10/23/2014 Knee pain, bilateral 10/23/2014 Medical Precautions: No active isolations Proper PPE donned/doffed in accordance with facility standards. Fall Risk: Sr Fall Risk Score: 70 (High Risk) Precautions/Restrictions: Fall Precautions Family/Caregiver Present: none Overall Cognitive Status: Decreased safety/judgment; self-directive; self-limiting; alert during session, attending; following basic commands Overall Orientation Status: Unable to stat exact date, otherwise WFL Social/Functional History Patient admitted from [facility]. Assistive Equipment: rollator Prior Level of Function ADL Assistance: Reports assist PRN Ambulation Assistance: Independent rollator Transfer Assistance: Independent Objective ADLs LE Dressing: Dependent, Socks Toileting: Dependent, Standing at bedside, posterior hygiene due to soiled pads. OT addressing static balance/posture and safety managing rollator (pt adamant about using rollator to stand versus walker). fuel cell technician present to assist with hygiene. LEs buckling. Feeding: Modified Independent Upper Extremity Assessment AROM: WFL Strength: WFL Bed Mobility Supine to sit: Max Assist; completed x 2 and second trial mod assist. Sit to supine: Mod Assist Scooting: Max Assist Transfers/Functional Mobility Sit to stand: Mod Assist, x2 Person Assist Stand to sit: Mod Assist, x2 Person Assist Standing balance: Mod Assist, x 2 stands. Longest stand x 20 seconds for static balance. Device(s) used: Rollator- despite education on safety concerns and pt lacking functional precursors AM-PAC AM-PAC Inpatient Daily Activity Raw Score: 18 ADL Inpatient CMS G-Code Modifier: CK Plan Pt would benefit from skilled acute OT services to address Strengthening, ROM, Gait Training, Balance Training, Self-Care/ADL Training, Functional Mobility Training, Endurance Training, Safety Education and Training, Pain Management, Equipment Evaluation/Education, Cognitive Reorientation, Patient/Caregiver Training, Cognitive/Perceptual Training, and Positioning. Frequency: 3x/week for 4 weeks Barriers: Pain, Impaired balance, and Lower extremity weakness Safety/Education Safety Safety Devices in place: call light within reach, gait belt, nurse notified, patient left sitting EOB, and Left EOB to eat lunch meal per pt request. fuel cell technician aware and confirming pt has been sitting EOB for meals. Restraints: N/A Education Education Given To: patient Education Provided: OT Role, Plan of Care, Transfer Training, Orientation, and Fall Prevention Education Education Method: Verbal Barriers to Learning: Cognition Education Outcome: Continued Education Needed Goals Patient Stated Goal: Improve function Encounter Problems Encounter Problems (Active) Balance Dynamic standing balance x 45 seconds SBA in prep for toileting. Start: 12/04/23 Expected End: 01/01/24 Dressings Lower Extremities Patient will dress lower body min assist. Start: 12/04/23 Expected End: 01/01/24 Safety Recall 3 safe transfer techniques no cues. Start: 12/04/23 Expected End: 01/01/24 Toileting Patient will complete toileting tasks with SBA. Start: 12/04/23 Expected End: 01/01/24 Toilet transfer SBA. Start: 12/04/23 Expected End: 01/01/24 Therapy Time Individual Co-treatment Time In 1149 Time Out 1214 Minutes 25 Timed Code Treatment Minutes: 8 Minutes (1- self) Patient's Occupational Therapy Plan of Care supervision is transferred to a [facility] Occupational Therapist. Goals and/or treatment plan was established in collaboration with patient/family/other representatives. Pretty Daley OTR/L Hospitalist Progress Note 12/04/2023 Subjective: Admit Date: 11/29/2023 PCP: No primary care provider on file. [facility]#: [facility] A BRIEF HOSPITAL COURSE: James is a 68 y.o. male with past medical history below who presents with chief complaint listed above. Pt was walking with his rollator on [place] to go get cigarettes. Pt lost his balance while walking and stumbled onto grass and fell backwards hitting his head. Denied loss of consciousness, vision changes, slurred speech, weakness/numbness in extremity, or nausea/vomiting. Will admit for further evaluation and management. MRI brain and MRA H/N show NAP and ruled out CVA. TTE shows preserved EF. B12 replaced. Neurology signed off. OP AAA U in 6-12 months with PCP. Awaiting SNF placement Interval History: No overnight issues. Case and plan discussed with patient and bedside nurse. All questions answered. Adult diet Regular; 5 carb choices (75 gm/meal); Low Fat/Low Chol/High Fiber/DEBBIE 24HR INTAKE/OUTPUT: Intake/Output Summary (Last 24 hours) at 12/04/2023 09 Last data filed at 12/04/2023 0600 Gross per 24 hour Intake 1362 ml Output 1200 ml Net 162 ml Past Medical History: Past Medical History: Diagnosis Date Acute kidney injury (HCC) 09/11/2015 CAD in [place] artery 08/08/2017 COPD (chronic obstructive pulmonary disease) (HCC) Developmental disorder Diabetes mellitus (HCC) Esophageal reflux Gastritis see EGD on 03/29/2016 GERD (gastroesophageal reflux disease) Hyperlipidemia IBS (irritable bowel syndrome) Mixed Obesity Osteoarthritis Pain management Plantar fasciitis, bilateral Unspecified sleep apnea Urinary retention LABS: CBC: Recent Labs 12/02/2332812/03/23 0525 12/04/23 0238 WBC 4.6 4.2 4.1 RBC 3.47* 3.36* 3.43* HGB 10.5* 10.2* 10.2* HCT 33.7* 32.5* 33.3* MCV 97.1 96.7 97.1 RDW 15.7* 15.4* 15.5* PLT 171 165 167 BMP: Recent Labs 12/02/2332812/03/23 0525 12/04/23 0238 NA 137 139 138 K 4.1 3.9 4.2 CL 113* 114* 114* CO2 18* 20* 19* BUN 23* 19 18 CREATININE 1.00 0.93 0.93 GLUCOSE 216* 134* 90 CALCIUM 8.5 8.4 8.6 ANIONGAP 5 5 5 LIVER PROFILE: Recent Labs 12/02/2332812/03/23 0525 12/04/23 0238 AST 16 13* 14* ALT 14 12 11 BILITOT 0.3 0.3 0.4 ALKPHOS 82 71 70 PROT 5.5* 5.3* 5.4* PT/INR: No results for input(s): "PROTIME", "INR" in the last 72 hours. CARDIAC ENZYMES: Recent Labs 12/02/23328 TROPONINI <0.012 Procalcitonin: No results found for: "PROCAL" COVID-19 PCR: No results for input(s): "COVID19" in the last 72 hours. Objective: Vitals: BP 115/56 (BP Location: Right arm, Patient Position: Lying) Pulse (!) 44 Temp 36.2 C (97.2 F) (Temporal) Resp 18 Ht 6' 2" (1.88 m) Wt 279 lb (127 kg) SpO2 95% BMI 35.82 kg/m Pulse Ox: SpO2 Av % Min: 92 % Max: 97 % Supplemental O2: Physical Exam Constitutional: Appearance: He is obese. He is not ill-appearing. Cardiovascular: Rate and Rhythm: Normal rate. Heart sounds: No murmur heard. Pulmonary: Effort: No respiratory distress. Breath sounds: No wheezing. Abdominal: General: There is no distension. Tenderness: There is no abdominal tenderness. Musculoskeletal: General: No swelling. Neurological: Mental Status: Mental status is at baseline. Medications: Scheduled PRN aspirin, 81 mg, Oral, Daily atorvastatin, 80 mg, Oral, Daily cholestyramine, 1 packet, Oral, TID WC cilostazol, 50 mg, Oral, BID cyanocobalamin, 1,000 mcg, IntraMUSCular, q30 days dicyclomine, 10 mg, Oral, TID enoxaparin, 40 mg, SubCUTAneous, Daily ezetimibe, 10 mg, Oral, Nightly famotidine, 20 mg, Oral, Daily finasteride, 5 mg, Oral, Daily fluticasone, 1 spray, Each Nostril, Daily insulin glargine, 48 Units, SubCUTAneous, Daily Insulin Lispro, 16 Units, SubCUTAneous, TID WC mometasone-formoterol, 2 puff, Inhalation, BID pancrelipase (Qjo-Yloo-Yroj), 2 capsule, Oral, TID WC pregabalin, 150 mg, Oral, BID tamsulosin, 0.4 mg, Oral, BID tiotropium, 2 puff, Inhalation, Daily PRN medications: acetaminophen OR acetaminophen, albuterol, bisacodyl, dextrose, dextrose, glucagon (rDNA), glucose, labetalol, methyl salicylate-menthol, naloxone, ondansetron ODT OR ondansetron, oxyCODONE-acetaminophen, polyethylene glycol (PEG) 3350 Continuous sodium chloride, 50 mL/hr, Last Rate: 50 mL/hr (12/04/23 0241) Assessment Data: (CAT1) Reviewed 3 or more notes from different specialty or health system (each=1). (CAT1) Reviewed 3 or more labs/studies ordered by another provider not previously counted (each=1, panels count as 1). (CAT1) Reviewed 3 or more labs/studies previously ordered by me not previously counted (each=1, panels count as 1). (CAT1) Ordered 3 or more new labs and/or studies (each=1, panels count as 1). (LOW: 2x CAT1 or independent historian MOD: 3x CAT1 or 1x CAT3 EXTENSIVE: 3x CAT1 and 1x CAT3) Acute, acute on chronic, unstable/uncontrolled chronic problems/diagnoses: Intractable dizziness Mildly dilated ascending aorta - 4.0 cm UTI Type 2 DM with hyperglycemia Stable chronic problems affecting care, new non-acute diagnoses: CAD HTN HLD COPD IBS OA Type 2 DM Hx of Developmental delay Hx of gastritis GERD Class 3 obesity Plan As a result of the above findings & factors, the following mgmt was pursued: - Start on CTX therapy and can transition to oral abx tomorrow pending Ucx - Medically stable for discharge to [facility] - am labs, replace lytes prn - PT/OT/CM/SW - delirium precautions: increase activity - DVT prophylaxis: enoxaparin and encourage ambulation Complexity: Acute illness or injury posing a threat to life or body function (HIGH). Risk: Admission to hospital-level care was considered or occurred (HIGH). Advance Directive: Full Code Anticipated Discharge - Date - 12/04 - Location - Skilled Facility - Pending the following - SNF auth Total time spent (which include face to face and non face to face encounters) : 36 minutes Toxic drug monitoring/narrow therapeutic index drug monitoring : # Drug name : Lovenox # Route administered : subq # Method of monitoring : CBC Extended Emergency Contact Information Primary Emergency Contact: Sreekanth Reyes Relation: Sibling Flori Strickland MD Division of Hospitalist Medicine [facility] [facility] Hospitalist Progress Note 12/03/2023 Subjective: Admit Date: 11/29/2023 PCP: No primary care provider on file. Room#: W4-436/W4-436 A BRIEF HOSPITAL COURSE: James is a 68 y.o. male with past medical history below who presents with chief complaint listed above. Pt was walking with his rollator on [employer] to go get cigarettes. Pt lost his balance while walking and stumbled onto grass and fell backwards hitting his head. Denied loss of consciousness, vision changes, slurred speech, weakness/numbness in extremity, or nausea/vomiting. Will admit for further evaluation and management. MRI brain and MRA H/N show NAP and ruled out CVA. TTE shows preserved EF. B12 replaced. Neurology signed off. OP AAA U in 6-12 months with PCP. Awaiting SNF placement Interval History: No overnight issues. Case and plan discussed with patient and bedside nurse. All questions answered. Adult diet Regular; 5 carb choices (75 gm/meal); Low Fat/Low Chol/High Fiber/DEBBIE 24HR INTAKE/OUTPUT: Intake/Output Summary (Last 24 hours) at 12/03/2023 1246 Last data filed at 12/03/2023 0842 Gross per 24 hour Intake 1473 ml Output 2205 ml Net -732 ml Past Medical History: Past Medical History: Diagnosis Date Acute kidney injury (HCC) 09/11/2015 CAD in [place] artery 08/08/2017 COPD (chronic obstructive pulmonary disease) (HCC) Developmental disorder Diabetes mellitus (HCC) Esophageal reflux Gastritis see EGD on 03/29/2016 GERD (gastroesophageal reflux disease) Hyperlipidemia IBS (irritable bowel syndrome) Mixed Obesity Osteoarthritis Pain management Plantar fasciitis, bilateral Unspecified sleep apnea Urinary retention LABS: CBC: Recent Labs 12/01/23 0539 12/02/23 0329 12/03/23 0525 WBC 4.3 4.6 4.2 RBC 3.48* 3.47* 3.36* HGB 10.4* 10.5* 10.2* HCT 33.3* 33.7* 32.5* MCV 95.7 97.1 96.7 RDW 15.7* 15.7* 15.4* PLT 173 171 165 BMP: Recent Labs 12/01/23 0539 12/02/23 0329 12/03/23 0525 NA 138 137 139 K 4.1 4.1 3.9 CL 114* 113* 114* CO2 19* 18* 20* BUN 25* 23* 19 CREATININE 1.08 1.00 0.93 GLUCOSE 137* 216* 134* CALCIUM 8.6 8.5 8.4 ANIONGAP 5 5 5 LIVER PROFILE: Recent Labs 12/01/23 0539 12/02/23 0329 12/03/23 0525 AST 20 16 13* ALT 15 14 12 BILITOT 0.5 0.3 0.3 ALKPHOS 80 82 71 PROT 5.6* 5.5* 5.3* PT/INR: No results for input(s): "PROTIME", "INR" in the last 72 hours. CARDIAC ENZYMES: Recent Labs 12/02/23 032 TROPONINI <0.012 Procalcitonin: No results found for: "PROCAL" COVID-19 PCR: No results for input(s): "COVID19" in the last 72 hours. Objective: Vitals: BP 118/51 Pulse 52 Temp 36.5 C (97.7 F) (Temporal) Resp 18 Ht 6' 2" (1.88 m) Wt 279 lb (127 kg) SpO2 95% BMI 35.82 kg/m Pulse Ox: SpO2 Av % Min: 93 % Max: 96 % Supplemental O2: Physical Exam Constitutional: Appearance: He is obese. He is not ill-appearing. Cardiovascular: Rate and Rhythm: Normal rate. Heart sounds: No murmur heard. Pulmonary: Effort: No respiratory distress. Breath sounds: No wheezing. Abdominal: General: There is no distension. Tenderness: There is no abdominal tenderness. Musculoskeletal: General: No swelling. Neurological: Mental Status: Mental status is at baseline. Medications: Scheduled PRN aspirin, 81 mg, Oral, Daily atorvastatin, 80 mg, Oral, Daily carvedilol, 6.25 mg, Oral, BID WC cholestyramine, 1 packet, Oral, TID WC cilostazol, 50 mg, Oral, BID cyanocobalamin, 1,000 mcg, IntraMUSCular, q30 days dicyclomine, 10 mg, Oral, TID enoxaparin, 40 mg, SubCUTAneous, Daily ezetimibe, 10 mg, Oral, Nightly famotidine, 20 mg, Oral, Daily finasteride, 5 mg, Oral, Daily fluticasone, 1 spray, Each Nostril, Daily insulin glargine, 48 Units, SubCUTAneous, Daily Insulin Lispro, 16 Units, SubCUTAneous, TID WC mometasone-formoterol, 2 puff, Inhalation, BID pancrelipase (Eqv-Hifz-Rhuq), 2 capsule, Oral, TID WC pregabalin, 150 mg, Oral, BID tamsulosin, 0.4 mg, Oral, BID tiotropium, 2 puff, Inhalation, Daily PRN medications: acetaminophen OR acetaminophen, albuterol, bisacodyl, dextrose, dextrose, glucagon (rDNA), glucose, labetalol, methyl salicylate-menthol, naloxone, ondansetron ODT OR ondansetron, oxyCODONE-acetaminophen, polyethylene glycol (PEG) 3350 Continuous sodium chloride, 50 mL/hr, Last Rate: 50 mL/hr (12/03/23 0842) Assessment Data: (CAT1) Reviewed 3 or more notes from different specialty or health system (each=1). (CAT1) Reviewed 3 or more labs/studies ordered by another provider not previously counted (each=1, panels count as 1). (CAT1) Reviewed 3 or more labs/studies previously ordered by me not previously counted (each=1, panels count as 1). (CAT1) Ordered 3 or more new labs and/or studies (each=1, panels count as 1). (LOW: 2x CAT1 or independent historian MOD: 3x CAT1 or 1x CAT3 EXTENSIVE: 3x CAT1 and 1x CAT3) Acute, acute on chronic, unstable/uncontrolled chronic problems/diagnoses: Intractable dizziness Mildly dilated ascending aorta - 4.0 cm Stable chronic problems affecting care, new non-acute diagnoses: CAD HTN HLD COPD IBS OA Type 2 DM Hx of Developmental delay Hx of gastritis GERD Class 3 obesity Plan As a result of the above findings & factors, the following mgmt was pursued: - Stable for discharge - awaiting SNF auth - am labs, replace lytes prn - PT/OT/CM/SW - delirium precautions: increase activity - DVT prophylaxis: enoxaparin and encourage ambulation Complexity: Acute illness or injury posing a threat to life or body function (HIGH). Risk: Admission to hospital-level care was considered or occurred (HIGH). Advance Directive: Full Code Anticipated Discharge - Date -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 James is a 68 y.o. male with past medical history below who presents with chief complaint listed above. Pt was walking with his rollator on [place] to go get cigarettes. Pt lost his balance while walking and stumbled onto grass and fell backwards hitting his head. Denied loss of consciousness, vision changes, slurred speech, weakness/numbness in extremity, or nausea/vomiting. Will admit for further evaluation and management. Interval History: No overnight issues. Case and plan discussed with patient and bedside nurse. All questions answered. Adult diet Regular; Low Fat/Low Chol/High Fiber/DEBBIE 24HR INTAKE/OUTPUT: Intake/Output Summary (Last 24 hours) at 12/01/2023 0850 Last data filed at 12/01/2023 0625 Gross per 24 hour Intake 120 ml Output 1550 ml Net -1430 ml Past Medical History: Past Medical History: Diagnosis Date Acute kidney injury (HCC) 09/11/2015 CAD in [place] artery 08/08/2017 COPD (chronic obstructive pulmonary disease) (HCC) Developmental disorder Diabetes mellitus (HCC) Esophageal reflux Gastritis see EGD on 03/29/2016 GERD (gastroesophageal reflux disease) Hyperlipidemia IBS (irritable bowel syndrome) Mixed Obesity Osteoarthritis Pain management Plantar fasciitis, bilateral Unspecified sleep apnea Urinary retention LABS: CBC: Recent Labs 08203511/30/23 0632 12/01/23 0539 WBC 7.0 5.1 4.3 RBC 3.84* 3.56* 3.48* HGB 11.7* 10.9* 10.4* HCT 36.9* 34.5* 33.3* MCV 96.1 96.9 95.7 RDW 15.6* 15.6* 15.7* PLT 219 191 173 BMP: Recent Labs 11/29/23203511/30/23 0632 12/01/23 0539 NA 141 138 138 K 4.1 3.9 4.1 CL 115* 115* 114* CO2 21* 19* 19* BUN 30* 27* 25* CREATININE 1.13 1.05 1.08 GLUCOSE 93 121* 137* CALCIUM 9.2 8.8 8.6 ANIONGAP 5 5 5 LIVER PROFILE: Recent Labs 11/29/23203511/30/23 0632 12/01/23 0539 AST 20 19 20 ALT 14 13 15 BILITOT 0.5 0.5 0.5 ALKPHOS 86 81 80 PROT 6.3 5.7* 5.6* PT/INR: Recent Labs 11/29/232035 PROTIME 10.9 INR 1.0 CARDIAC ENZYMES: Recent Labs 11/29/23203511/30/23 0211 11/30/23 0632 TROPONINI <0.012 <0.012 <0.012 Procalcitonin: No results found for: "PROCAL" COVID-19 PCR: No results for input(s): "COVID19" in the last 72 hours. Objective: Vitals: BP 136/60 (BP Location: Right arm, Patient Position: Lying) Pulse 53 Temp 36.4 C (97.6 F) (Temporal) Resp 20 Ht 6' 2" (1.88 m) Wt 279 lb (127 kg) SpO2 91% BMI 35.82 kg/m Pulse Ox: SpO2 Av.8 % Min: 91 % Max: 94 % Supplemental O2: Physical Exam Constitutional: Appearance: He is obese. He is not ill-appearing. Cardiovascular: Rate and Rhythm: Normal rate. Heart sounds: No murmur heard. Pulmonary: Effort: No respiratory distress. Breath sounds: No wheezing. Abdominal: General: There is no distension. Tenderness: There is no abdominal tenderness. Musculoskeletal: General: No swelling. Neurological: Mental Status: Mental status is at baseline. Medications: Scheduled PRN aspirin, 81 mg, Oral, Daily atorvastatin, 80 mg, Oral, Daily carvedilol, 6.25 mg, Oral, BID WC cholestyramine, 1 packet, Oral, TID WC cilostazol, 50 mg, Oral, BID cyanocobalamin, 1,000 mcg, IntraMUSCular, q30 days dicyclomine, 10 mg, Oral, TID enoxaparin, 40 mg, SubCUTAneous, Daily ezetimibe, 10 mg, Oral, Nightly famotidine, 20 mg, Oral, Daily finasteride, 5 mg, Oral, Daily fluticasone, 1 spray, Each Nostril, Daily insulin glargine, 48 Units, SubCUTAneous, Daily Insulin Lispro, 16 Units, SubCUTAneous, TID WC mometasone-formoterol, 2 puff, Inhalation, BID pancrelipase (Ujg-Lmis-Kpub), 2 capsule, Oral, TID WC pregabalin, 150 mg, Oral, BID tamsulosin, 0.4 mg, Oral, BID tiotropium, 2 puff, Inhalation, Daily PRN medications: acetaminophen OR acetaminophen, albuterol, bisacodyl, dextrose, dextrose, glucagon (rDNA), glucose, labetalol, methyl salicylate-menthol, naloxone, ondansetron ODT OR ondansetron, oxyCODONE-acetaminophen, polyethylene glycol (PEG) 3350 Continuous sodium chloride, 50 mL/hr, Last Rate: 50 mL/hr (11/30/23 3716) Assessment Data: (CAT1) Reviewed 3 or more notes from different specialty or health system (each=1). (CAT1) Reviewed 3 or more labs/studies ordered by another provider not previously counted (each=1, panels count as 1). (CAT1) Reviewed 3 or more labs/studies previously ordered by me not previously counted (each=1, panels count as 1). (CAT1) Ordered 3 or more new labs and/or studies (each=1, panels count as 1). (LOW: 2x CAT1 or independent historian MOD: 3x CAT1 or 1x CAT3 EXTENSIVE: 3x CAT1 and 1x CAT3) Acute, acute on chronic, unstable/uncontrolled chronic problems/diagnoses: Intractable dizziness Mildly dilated ascending aorta - 4.0 cm Stable chronic problems affecting care, new non-acute diagnoses: CAD HTN HLD COPD IBS OA Type 2 DM Hx of Developmental delay Hx of gastritis GERD Class 3 obesity Plan As a result of the above findings & factors, the following mgmt was pursued: - MRI brain and MRA H/N show NAP and ruled out CVA. TTE shows preserved EF - Continue on ASA, Liptior and Zetia - Neurocheks and stroke order set ordered - Neurology following and discussed case with Dr. Solorzano this am - Start on B12 supplementation - OP AAA U in 6-12 months with PCP - Plan is discharge to SNF, likely tomorrow or Monday - Discussed with nurse and TCC during IDR's this morning - am labs, replace lytes prn - PT/OT/CM/SW - delirium precautions: increase activity - DVT prophylaxis: enoxaparin and encourage ambulation Complexity: Acute illness or injury posing a threat to life or body function (HIGH). Risk: Admission to hospital-level care was considered or occurred (HIGH). Advance Directive: Full Code Anticipated Discharge - Date - 12/01-12/03 - Location - Skilled Facility - Pending the following - SNF auth Total time spent (which include face to face and non face to face encounters) : 52 minutes Toxic drug monitoring/narrow therapeutic index drug monitoring : # Drug name : Lovenox # Route administered : subq # Method of monitoring : CBC Extended Emergency Contact Information Primary Emergency Contact: Sreekanth Reyes Relation: Sibling Flori Strickland MD Division of Hospitalist Medicine [facility] Respiratory Care Department Progress Note As part of the Respiratory Assessment Program (RAP), the following Respiratory Therapist evaluation has been completed, including a chart review and clinical/physical assessment. Respiratory Therapist RAP Evaluation Guideline Points 0 1 2 3 4 Points Strongly Consider History Factor No Pulmonary conditions Stable Pulmonary condition(s) Surgery or Intervention that may impact Pulmonary system (at risk) Surgery or Intervention that is impacting Pulmonary system Active Exacerbation of Pulmonary Condition 1 Respiratory Pattern Regular, RR= 12-18 SHIRLEY or Increased RR= 19-24 Irregular, or RR= 25-30 SOB, talk in short sentences, or RR= 31-35 Severe SOB, accessory muscle use, one word answers, or RR>35 0 Aerosol Med(s), High Flow O2 Breath Sounds Clear Diminished in 1 lobe Diminished in ? 2 lobes Adventitious breath sounds Coarse crackles, Wheezes, or Diminished in >2 lobes 1 Aerosol Med(s), Bronchial Hygiene, Hyperinflation Cough & Sputum Strong cough, no secretion retention or production Weak cough, no secretion retention or production Weak cough, w/ production (less often than Q2hr), or secretion retention No cough, w/ secretion retention or production (less often than Q2hr) Significant secretion production (more often than Q2hr) or mucus plug 0 Aerosol Med(s), Bronchial Hygiene, Hyperinflation Level of Activity Ambulatory Ambulatory with Assist Up in chair or edge of bed (dangle) Non-ambulatory, bedridden with active ROM Completely paralyzed or without active ROM 1 Triage 5 0-2 Triage 4 3-5 Triage 3 6-10 Triage 2 11-14 Triage 1 ?15 Total 3 Triage Score = 4 TRIAGE SCORING - SUGGESTED FREQUENCIES Aerosol Therapy Bronchial Hygiene Hyperinflation Triage Score Q4h & PRN 1 Q4hWA (QID) & PRN 2 TID & PRN 3 BID & PRN 4 PRN 5 Therapy(s) Indicated Yes/No Aerosol Medication y Hyperinflation Bronchial Hygiene High Flow Oxygen Flow Rates PEF (L/Sec) IVC FVC FEV1 FEV1/FVC Patient instructed and returned demonstration on use of MDI (with spacer, as appropriate) NO RT to enter/modify frequency of treatment order in EMR/EHR to match this RAP evaluation. Based on this RAP evaluation the following therapy is being initiated: Albuterol HHN At the following frequency: PRN Comments: Patient refusing scheduled aerosols. Thank you for involving Respiratory in the care of this patient, Images from the original note were not included. OCCUPATIONAL THERAPY [facility] Name/MRN: James Reyes ([id number]) Date: 11/30/2023 Returned to attempt Eval at 13:45 spoke to RN who stated patient is going to be leaving floor for an MRI very shortly and not to see patient at this time. OT will return to evaluate as schedule permits. Darlin Corea OT Images from the original note were not included. PHYSICAL THERAPY [facility] Name/MRN: James Reyes ([id number]) Date: 11/30/2023 Multiple attempts made throughout the day, pt receiving echo, lunch, and OOR. Will attempt as able. Kyle Moreland, PT Speech-Language Pathology Patient passed the Nursing Swallowing Screening and is on a Regular diet, Cardiac: Low fat, Low cholesterol. High Fiber, DEBBIE with Thin liquids. Completed speech orders as per stroke protocol. Images from the original note were not included. OCCUPATIONAL THERAPY [facility] Name/MRN: James Reyes ([id number]) Date: 11/30/2023 Performed chart review. Attempted OT eval 10:59 patient is getting Echo completed bedside. Will return to evaluate as schedule permits. Darlin Corea OT Patient seen and examined at bedside. Refer to Dr. King H&P for further details. See new orders. Flori Strickland MD Division of Hospitalist Medicine [facility] documented in this encounter [facility] 12-05-2023 Nurse Note Wound Care consulted for Pressure Injury Prevention. Pt's Yang score= 14 on 12/04 Pt's pressure points assessed. Pt's Heels, Buttocks/coccyx, Back, Elbows, Occiput and ears all intact. Pt sitting on edge of bed eating lunch. Prevention Measures in place, including: [place] sheet with pillows, Heels elevated off bed on pillows, Zinc/Moisture Barrier ointment, Waffle chair cushion (obtained for pt). Skin Care precaution order set in place. Dietitian consult N/A, subscore=3. PT consult in place. Will continue to follow pt. Please Voicera for any questions or concerns. Liz Keane RN, BSN, CWCN [facility] 12-05-2023 Nurse Note Wound Care consulted for Pressure Injury Prevention. Pt's Yang score= 14 on 12/04 Pt's pressure points assessed. Pt's Heels, Buttocks/coccyx, Back, Elbows, Occiput and ears all intact. Pt sitting on edge of bed eating lunch. Prevention Measures in place, including: [place] sheet with pillows, Heels elevated off bed on pillows, Zinc/Moisture Barrier ointment, Waffle chair cushion (obtained for pt). Skin Care precaution order set in place. Dietitian consult N/A, subscore=3. PT consult in place. Will continue to follow pt. Please Voicera for any questions or concerns. Liz Keane RN, BSN, CWCN Report called to [facility] Patient is making inappropriate comments to nursing staff, after having a male nurse assigned he requested a new female nurse because he was not "pretty". Patient was reminded that this is a professional environment and this behavior is not appropriate. Wound Care consulted for Pressure Injury Prevention. Pt's Yang= 20, pt is no longer at risk. Skin Care Precaution order set in place. PT/OT consults in place. Dietitian consult in place. Will continue to follow peripherally. Please voicera or secure chat message with any questions. Liz Keane RN, [facility] Wound Care arrived to pt's room for Prevention consult, but pt not in room at present time. Will return as time permits. Please Voicera for any questions or concerns. Kaycee Ricardo RN Krissy from [facility] called and states "James needs to return to baseline before he can return to us, he is usually independent with ADL's and walks safely with his rollator." Krissy's direct line [phone]. documented in this encounter [facility] 12-05-2023 Nurse Note Report called to [facility] 12-05-2023 Miscellaneous Notes Patient Choice Patient Name: JAMES REYES Date of : 1955 All Providers Sent [facility] Phone: [phone] Address: [address] [place], [place] [id number] Name: [employer] [facility] Phone: [phone] Address: [address] [id number] Name: [facility] Phone: [phone] Address: [address] [place] [address] [address] [place] [id number] Discharge med list [facility] TCC request. Level of Care returned. Notified RN, TCC, and MD. Discharge order obtained. Uploaded PASRR and level of care to [facility] and sent to [facility]. Arranged for [facility] wheelchair ambulance for transport thru [employer] for pickling grader at 2 PM. Notified RN, TCC, pt's brother, Sreekanth, facility, and community association manager of discharge time. Level of Care is back. Plan is discharge to [facility]. Once discharge is written. SW will set up transportation. [facility] will copy AVS. Bedside Nurse will call report to [phone]. I will task ON SITE SOIL EVALUATOR to transmit MAR to [facility]. coverage for today. CRUZ completed, printed, and sent to [facility] along with additional clinical information to start Level of Care. PASRR completed by SHALONDA Smith. Await return of Level of Care. Images from the original note were not included. Care Management Progress Note [facility] willing to accept. Will need CRUZ completed for to get Level of care. Message in secure chat for bedside Nurse to complete. Once Level of Care is received facility can accept patient. Discharge Milestones and Delays Expected date/time: 12/06/[address] discharge order Complete med reconciliation Case mgmt discharge readiness Clinical Stability Diagnostic Workup Repairer [employer] Furniture Recommendations Imaging Results PT discharge readiness OT discharge readiness SENIOR SOFTWARE DEVELOPER discharge readiness Patient Education Complete Expected Discharge History Expected Date/Time Set By Reviewed At 12/06/2023 Jennifer Salazar RN 12/05/2023 7:38 AM 12/05/2023 Jennifer Salazar RN 12/04/2023 9:11 AM 12/04/2023 Jennifer Salazar RN 12/01/2023 9:23 AM 12/01/2023 Sergio Ruff, DO 11/30/2023 12:41 AM 12/01/2023 Sergio Ruff, DO 11/29/2023 10:14 PM Length of Stay (Days): 6 GMLOS: No GMLOS Documented The patient is Moderately Stable - Low risk of patient condition declining or worsening The patient's goals for the shift include The clinical goals for the shift include Over the shift, the patient did not make progress toward the following goals. Barriers to progression include education . Recommendations to address these barriers include learning about diease process. Reviewed with TCC. Completed PAS in HENS, will submit for LOC once CRUZ completed. Images from the original note were not included. Care Management Progress Note [facility] willing to accept. Will need Level of care, Discharge Milestones and Delays Expected date/time: 12/05/[address] discharge order Complete med reconciliation Case mgmt discharge readiness Clinical Stability Diagnostic Workup Repairer Wood Furniture Recommendations Imaging Results PT discharge readiness OT discharge readiness SENIOR SOFTWARE DEVELOPER discharge readiness Patient Education Complete Expected Discharge History Expected Date/Time Set By Reviewed At 12/05/2023 Jennifer Salazar RN 12/04/2023 9:11 AM 12/04/2023 Jennifer Salazar RN 12/01/2023 9:23 AM 12/01/2023 Sergio Ruff, DO 11/30/2023 12:41 AM 12/01/2023 Sergio Ruff, DO 11/29/2023 10:14 PM Length of Stay (Days): 5 GMLOS: No GMLOS Documented Referral placed to [facility] via [facility] per TCC request. Await review and response regarding ability to accept. TCC notified. Explained to patient his AL wanted him to go to skilled facility before returning home. Patient agreeable. I read facilities to patient. He made choices of ([facility]) [facility] and [facility]. Referrals in [facility]. Patient will need Level of Care. Images from the original note were not included. Care Management Progress Note MRI Head, neck and brain pending. Therapy evaluations pending. Per AL patient will need to be at his baseline to return. Patient was about independent with walker. Discharge Milestones and Delays Expected date/time: 12/04/[address] discharge order Complete med reconciliation Case mgmt discharge readiness Clinical Stability Diagnostic Workup Patient Education Complete Expected Discharge History Expected Date/Time Set By Reviewed At 12/04/2023 Jennifer Salazar RN 12/01/2023 9:23 AM 12/01/2023 Sergio Ruff, DO 11/30/2023 12:41 AM 12/01/2023 Sergio Ruff, DO 11/29/2023 10:14 PM Length of Stay (Days): 2 GMLOS: No GMLOS Documented The patient is Moderately Stable - Low risk of patient condition declining or worsening The patient's goals for the shift include The clinical goals for the shift include Problem: Knowledge Deficit Goal: Patient/family/caregiver demonstrates understanding of disease process, treatment plan, medications, and discharge instructions Outcome: Progressing Problem: Potential for Compromised Skin Integrity Goal: Skin Integrity is Maintained or Improved Outcome: Progressing Goal: Nutritional status is improving Outcome: Progressing Problem: Urinary Incontinence Goal: Perineal skin integrity is maintained or improved Outcome: Progressing Problem: Neurological Deficit Goal: Neurological status is stable or improving Outcome: Progressing Problem: Activity Intolerance/Impaired Mobility Goal: Mobility/activity is maintained at optimum level for patient Outcome: Progressing Problem: Communication Impairment Goal: Ability to express needs and understand communication Outcome: Progressing Problem: Potential for Aspiration Goal: Non-ventilated patient's risk of aspiration is minimized Outcome: Progressing Problem: Nutrition Goal: Nutritional status is improving Outcome: Progressing Problem: Discharge Barriers Goal: My discharge needs are met Outcome: Progressing Problem: Potential for Compromised Skin Integrity Goal: Skin Integrity is Maintained or Improved Outcome: Progressing Goal: Nutritional status is improving Outcome: Progressing Problem: Nutrition Goal: Nutritional status is improving Outcome: Progressing Referral placed to [facility] via [facility] per [facility] request. Await review and response regarding ability to accept. TCC notified. Care Managment Initial Assessment Date: 11/30/2023 Patient Name: James Reyes : 1955 Patient Information Source of Information: Patient Cognition/Language: WFL - Within Functional Limits Permission given to speak with patient service liaison representative/caregiver as indicated: No Confirmation of Payer with patient/family: Payer Name: Medicaid [place]: No Confirmation of Primary Care Physician: (Does not know) Primary Caregiver: Self If assistance needed, confirmed caregiver ready, willing and able to care for patient at discharge: Yes Confirmed with: Living Arrangements Current Residence: Number of Floors Number of Entry Steps: Bed/Bath Levels: Facility: Assisted Living Facility Name: [facility] Plan to Return: Yes Lives with: Alone Support Systems: Comments (Other) (assisted living staff) Activities of Daily Living Ambulation: Independent (With rollator) Bathing/Dressing: Independent Elimination/Continence/Toileting: Independent Feeding: Independent Who Assists with Activities of Daily Living: Instrumental Activities of Daily Living Prescription Coverage: Yes Pharmacy Used: [facility] Medication Management: Transportation/Shopping: Transportation Mode: Needs Assistance with Transportation at Discharge: Yes Meal Preparation: (AL) Laundry/Cleaning: (AL) Finances/Bill Paying: (AL) Communication: Independent Types of Care Services/Equipment Utilized Care Services: Dialysis Type: Durable Medical Equipment: Rollator Patient's Goal/Discharge Plan Patient expects to be discharged to: TBD Discharge Planning Actions: Continue to follow Patient's Choice Rights and [employer] and Collaborative Relationships Disclosed as Indicated for Post-Acute Care: Interdisciplinary Team Engagement: Social Work Referral for: Additional Information: [place] per patient. From [employer] D[facility]-Rollator. Per [facility]. DON-Patient will need to be at his baseline to return to AL. Will continue to follow for therapy recommendation. Jennifer Salazar RN Spoke to [facility] Pt follows with PCP Dr.Richard Rodriguez with [facility] [phone] The patient is Moderately Stable - Low risk of patient condition declining or worsening The patient's goals for the shift include adequate rest The clinical goals for the shift include absence of neurological defecits Problem: Knowledge Deficit Goal: Patient/family/caregiver demonstrates understanding of disease process, treatment plan, medications, and discharge instructions Outcome: Progressing Flowsheets (Taken 11/30/2023508) Patient/family/caregiver demonstrates understanding of disease process, treatment plan, medications, and discharge instructions: Complete learning assessment and assess knowledge base Provide teaching at level of understanding Provide teaching via preferred learning methods Problem: Potential for Compromised Skin Integrity Goal: Skin Integrity is Maintained or Improved Outcome: Progressing Flowsheets (Taken 11/30/2023508) Skin integrity is maintained or improved: Assess and monitor skin integrity Collaborate with interdisciplinary team and initiate plans and interventions as needed Relieve pressure to bony prominences Keep skin clean and dry Encourage use of lotion/moisturizer on skin Monitor patient's hygiene practices Alternate a full bath with partial baths for elderly Avoid shearing Turn patient Identify patients at risk for skin breakdown on admission and per policy Collaborate with wound, ostomy, and continence nurse Goal: Nutritional status is improving Outcome: Progressing Flowsheets (Taken 11/30/2023508) Nutritional status is improving: Monitor and assess patient for malnutrition (ex- brittle hair, bruises, dry skin, pale skin and conjunctiva, muscle wasting, smooth red tongue, and disorientation) Monitor patient's weight and dietary intake as ordered or per policy Determine patient's food preferences and provide high-protein, high-caloric foods as appropriate Allow adequate time for meals Collaborate with clinical forensic psychiatrist Collaborate with interdisciplinary team and initiate plan and interventions as ordered Utilize nutrition screening tool and intervene per policy Assist patient with eating Encourage patient to take dietary supplement as ordered Include patient/family/caregiver in decisions related to nutrition Problem: Urinary Incontinence Goal: Perineal skin integrity is maintained or improved Outcome: Progressing Flowsheets (Taken 11/30/2023508) Perineal skin integrity is maintained or improved: Assess genitourinary system, perineal skin, labs (urinalysis), and history of incontinence to include past management, aggravating, and alleviating factors Collaborate with interdisciplinary team including wound, ostomy, and continence nurse and initiate plans and interventions as needed Keep skin clean and dry Apply urine containment device Apply skin protectant Develop skin care regimen Provide privacy when changing patient's incontinence device to maintain their dignity Problem: Neurological Deficit Goal: Neurological status is stable or improving Outcome: Progressing Problem: Activity Intolerance/Impaired Mobility Goal: Mobility/activity is maintained at optimum level for patient Outcome: Progressing Problem: Communication Impairment Goal: Ability to express needs and understand communication Outcome: Progressing Problem: Potential for Aspiration Goal: Non-ventilated patient's risk of aspiration is minimized Outcome: Progressing Problem: Nutrition Goal: Nutritional status is improving Outcome: Progressing Flowsheets (Taken 11/30/2023 0509) Nutritional status is improving: Monitor and assess patient for malnutrition (ex- brittle hair, bruises, dry skin, pale skin and conjunctiva, muscle wasting, smooth red tongue, and disorientation) Monitor patient's weight and dietary intake as ordered or per policy Determine patient's food preferences and provide high-protein, high-caloric foods as appropriate Allow adequate time for meals Collaborate with clinical forensic psychiatrist Collaborate with interdisciplinary team and initiate plan and interventions as ordered Utilize nutrition screening tool and intervene per policy Assist patient with eating Encourage patient to take dietary supplement as ordered Include patient/family/caregiver in decisions related to nutrition Problem: Discharge Barriers Goal: My discharge needs are met Outcome: Progressing documented in this encounter [facility] 12-05-2023 Note Formatting of this n ote might be different from the original. Patient Choice Patient Name: JAMES REYES Date of : 1955 All Providers Sent [facility] Phone: [phone] Address: [address] [place] [address] Name: [employer] [facility] Phone: [phone] Address: [address] [place] [address] Name: [facility] Phone: [phone] Address: [address] [place] [address] [address] [place] [address] T [facility] 12-05-2023 Note Formatting of this n ote might be different from the original. Patient Choice Patient Name: JAMES REYES Date of : 1955 All Providers Sent [facility] Phone: [phone] Address: [address] [place], [place] [id number] Name: [facility] Phone: [phone] Address: [address] [place] [address] Name: [facility] Phone: [phone] Address: [address] [facility] [address] [facility] [address] [place] [address] T [facility] 12-05-2023 Note Formatting of this n ote might be different from the original. Discharge med list transmitted to [facility] via [facility] per TCC request. [facility] 12-05-2023 Note Formatting of this n ote might be different from the original. Discharge med list transmitted to [facility] via [facility] per TCC request. T [facility] 12-05-2023 Note Formatting of this n ote might be different from the original. Level of Care returned. Notified RN, TCC, and MD. Discharge order obtained. Uploaded PASRR and level of care to [facility] and sent to [facility]. Arranged for [facility] wheelchair ambulance for transport thru [employer] for pickling grader at 2 PM. Notified RN, TCC, pt's brother, Sreekanth, facility, and community association manager of discharge time. [facility] 12-05-2023 Note Formatting of this n ote might be different from the original. Level of Care returned. Notified RN, PRAFUL, and MD. Discharge order obtained. Uploaded PASRR and level of care to [facility] and sent to [facility]. Arranged for [facility] wheelchair ambulance for transport thru [employer] for pickling grader at 2 PM. Notified RN, TCC, pt's brother, Sreekanth, facility, and community association manager of discharge time. [facility] 12-05-2023 Note Formatting of this n ote might be different from the original. Level of Care is back. Plan is discharge to [facility]. Once discharge is written. will set up transportation. [employer] will copy AVS. Bedside Nurse will call report to [phone]. I will task ON SITE SOIL EVALUATOR to transmit MAR to [facility]. [facility] 12-05-2023 Note Formatting of this n ote might be different from the original. Level of Care is back. Plan is discharge to [facility]. Once discharge is written. will set up transportation. [place] will copy AVS. Bedside Nurse will call report to [phone]. I will task ON SITE SOIL EVALUATOR to transmit MAR to [facility]. T [facility] 12-05-2023 Nurse Note Patient is making inappropriate comments to nursing staff, after having a male nurse assigned he requested a new female nurse because he was not "pretty". Patient was reminded that this is a professional environment and this behavior is not appropriate. [facility] 12-05-2023 Note Formatting of this n ote might be different from the original. coverage for today. CRUZ completed, printed, and sent to [facility] along with additional clinical information to start Level of Care. PASRR completed by SHALONDA Smith. Await return of Level of Care. [facility] 12-05-2023 Note Formatting of this n ote might be different from the original. coverage for today. CRUZ completed, printed, and sent to [facility] along with additional clinical information to start Level of Care. PASRR completed by SHALONDA Smith. Await return of Level of Care. [facility] 12-05-2023 Note Formatting of this n ote is different from the original. Images from the original note were not included. Care Management Progress Note [facility] willing to accept. Will need CRUZ completed for to get Level of care. Message in secure chat for bedside Nurse to complete. Once Level of Care is received facility can accept patient. Discharge Milestones and Delays Expected date/time: 12/06/[address] discharge order Complete med reconciliation Case mgmt discharge readiness Clinical Stability Diagnostic Workup Repairer Wood Furniture Recommendations Imaging Results PT discharge readiness OT discharge readiness SENIOR SOFTWARE DEVELOPER discharge readiness Patient Education Complete Expected Discharge History Expected Date/Time Set By Reviewed At 12/06/2023 Jennifer Salazar RN 12/05/2023 7:38 AM 12/05/2023 Jennifer Salazar RN 12/04/2023 9:11 AM 12/04/2023 Jennifer Salazar RN 12/01/2023 9:23 AM 12/01/2023 Sergio Paty Ruff, DO 11/30/2023 12:41 AM 12/01/2023 Sergio G Riyaheim, DO 11/29/2023 10:14 PM Length of Stay (Days): 6 GMLOS: No GMLOS Documented [facility] 12-05-2023 Note Formatting of this n ote is different from the original. Images from the original note were not included. Care Management Progress Note [facility] willing to accept. Will need CRUZ completed for SW to get Level of care. Message in secure chat for bedside Nurse to complete. Once Level of Care is received facility can accept patient. Discharge Milestones and Delays Expected date/time: 12/06/[address] discharge order Complete med reconciliation Case mgmt discharge readiness Clinical Stability Diagnostic Workup Repairer Wood Furniture Recommendations Imaging Results PT discharge readiness OT discharge readiness SENIOR SOFTWARE DEVELOPER discharge readiness Patient Education Complete Expected Discharge History Expected Date/Time Set By Reviewed At 12/06/2023 Jennifer Salazar RN 12/05/2023 7:38 AM 12/05/2023 Jennifer Salazar RN 12/04/2023 9:11 AM 12/04/2023 Jennifer Salazar RN 12/01/2023 9:23 AM 12/01/2023 Sergio Ruff, DO 11/30/2023 12:41 AM 12/01/2023 Sergio Ritterheim, DO 11/29/2023 10:14 PM Length of Stay (Days): 6 GMLOS: No GMLOS Documented [facility] 12-05-2023 Plan of care note The patient is Moderately Stable - Low risk of patient condition declining or worsening The patient's goals for the shift include The clinical goals for the shift include Over the shift, the patient did not make progress toward the following goals. Barriers to progression include education . Recommendations to address these barriers include learning about diease process. T [facility] 12-04-2023 Note Formatting of this n ote might be different from the original. Reviewed with TCC. Completed PAS in HENS, will submit for LOC once CRUZ completed. [facility] 12-04-2023 Note Formatting of this n ote might be different from the original. Reviewed with TCC. Completed PAS in HENS, will submit for LOC once CRUZ completed. [facility] 12-04-2023 Note Formatting of this n ote is different from the original. Images from the original note were not included. Care Management Progress Note [facility] willing to accept. Will need Level of care, Discharge Milestones and Delays Expected date/time: 12/05/[address] discharge order Complete med reconciliation Case mgmt discharge readiness Clinical Stability Diagnostic Workup Repairer Wood Furniture Recommendations Imaging Results PT discharge readiness OT discharge readiness SENIOR SOFTWARE DEVELOPER discharge readiness Patient Education Complete Expected Discharge History Expected Date/Time Set By Reviewed At 12/05/2023 Jennifer Salazar RN 12/04/2023 9:11 AM 12/04/2023 Jennifer Salazar RN 12/01/2023 9:23 AM 12/01/2023 Sergio Ruff DO 11/30/2023 12:41 AM 12/01/2023 Sergio Ruff DO 11/29/2023 10:14 PM Length of Stay (Days): 5 GMLOS: No GMLOS Documented [facility] 12-04-2023 Note Formatting of this n ote is different from the original. Images from the original note were not included. Care Management Progress Note [facility] willing to accept. Will need Level of care, Discharge Milestones and Delays Expected date/time: 12/05/[address] discharge order Complete med reconciliation Case mgmt discharge readiness Clinical Stability Diagnostic Workup Repairer Wood Furniture Recommendations Imaging Results PT discharge readiness OT discharge readiness SENIOR SOFTWARE DEVELOPER discharge readiness Patient Education Complete Expected Discharge History Expected Date/Time Set By Reviewed At 12/05/2023 Jennifer Salazar RN 12/04/2023 9:11 AM 12/04/2023 Jennifer Salazar RN 12/01/2023 9:23 AM 12/01/2023 Sergio Ruff, DO 11/30/2023 12:41 AM 12/01/2023 Sergio Ruff, DO 11/29/2023 10:14 PM Length of Stay (Days): 5 GMLOS: No GMLOS Documented [facility] 12-04-2023 Nurse Note Wound Care consulted for Pressure Injury Prevention. Pt's Yang= 20, pt is no longer at risk. Skin Care Precaution order set in place. PT/OT consults in place. Dietitian consult in place. Will continue to follow peripherally. Please voicera or secure chat message with any questions. Liz Keane RN, [facility] 12-01-2023 Note Formatting of this n ote might be different from the original. Referral placed to SNF - [facility] via [facility] per [facility] request. Await review and response regarding ability to accept. TCC notified. [facility] 12-01-2023 Note Formatting of this n ote might be different from the original. Referral [facility] to [facility] via [facility] per TCC request. Await review and response regarding ability to accept. TCC notified. [facility] 12-01-2023 Note [facility] per TCC request. Await review and response regarding ability to accept. TCC notified. [facility] 12-01-2023 Note Formatting of this n ote might be different from the original. Explained to patient his AL wanted him to go to skilled facility before returning home. Patient agreeable. I read facilities to patient. He made choices of (FOC) [facility] and [facility]. Referrals in [facility]. Patient will need Level of Care. [facility] 12-01-2023 Note Formatting of this n ote might be different from the original. Explained to patient his AL wanted him to go to skilled facility before returning home. Patient agreeable. I read facilities to patient. He made choices of (FOC) [facility] and [facility]. Referrals in [facility]. Patient will need Level of Care. [facility] 12-01-2023 Note Formatting of this n ote is different from the original. Images from the original note were not included. Care Management Progress Note MRI Head, neck and brain pending. Therapy evaluations pending. Per AL patient will need to be at his baseline to return. Patient was about independent with walker. Discharge Milestones and Delays Expected date/time: 12/04/[address] discharge order Complete med reconciliation Case mgmt discharge readiness Clinical Stability Diagnostic Workup Patient Education Complete Expected Discharge History Expected Date/Time Set By Reviewed At 12/04/2023 Jennifer Salazar RN 12/01/2023 9:23 AM 12/01/2023 Sergio G Nesheim, DO 11/30/2023 12:41 AM 12/01/2023 Sergio G Nesheim, DO 11/29/2023 10:14 PM Length of Stay (Days): 2 GMLOS: No GMLOS Documented [facility] 12-01-2023 Note Formatting of this n ote is different from the original. Images from the original note were not included. Care Management Progress Note MRI Head, neck and brain pending. Therapy evaluations pending. Per AL patient will need to be at his baseline to return. Patient was about independent with walker. Discharge Milestones and Delays Expected date/time: 12/04/[address] discharge order Complete med reconciliation Case mgmt discharge readiness Clinical Stability Diagnostic Workup Patient Education Complete Expected Discharge History Expected Date/Time Set By Reviewed At 12/04/2023 Jennifer Salazar RN 12/01/2023 9:23 AM 12/01/2023 Sergio G Nesheim, DO 11/30/2023 12:41 AM 12/01/2023 Sergio G Nesheim, DO 11/29/2023 10:14 PM Length of Stay (Days): 2 GMLOS: No GMLOS Documented [facility] 12-01-2023 Plan of care note The patient is Moderately Stable - Low risk of patient condition declining or worsening The patient's goals for the shift include The clinical goals for the shift include Problem: Knowledge Deficit Goal: Patient/family/caregiver demonstrates understanding of disease process, treatment plan, medications, and discharge instructions Outcome: Progressing Problem: Potential for Compromised Skin Integrity Goal: Skin Integrity is Maintained or Improved Outcome: Progressing Goal: Nutritional status is improving Outcome: Progressing Problem: Urinary Incontinence Goal: Perineal skin integrity is maintained or improved Outcome: Progressing Problem: Neurological Deficit Goal: Neurological status is stable or improving Outcome: Progressing Problem: Activity Intolerance/Impaired Mobility Goal: Mobility/activity is maintained at optimum level for patient Outcome: Progressing Problem: Communication Impairment Goal: Ability to express needs and understand communication Outcome: Progressing Problem: Potential for Aspiration Goal: Non-ventilated patient's risk of aspiration is minimized Outcome: Progressing Problem: Nutrition Goal: Nutritional status is improving Outcome: Progressing Problem: Discharge Barriers Goal: My discharge needs are met Outcome: Progressing [facility] 11-30-2023 Note Problem: Potential f or Compromised Skin Integrity Goal: Skin Integrity is Maintained or Improved Outcome: Progressing Goal: Nutritional status is improving Outcome: Progressing Problem: Nutrition Goal: Nutritional status is improving Outcome: Progressing [facility] 11-30-2023 Plan of care note Problem: Potential for Compromised Skin Integrity Goal: Skin Integrity is Maintained or Improved Outcome: Progressing Goal: Nutritional status is improving Outcome: Progressing Problem: Nutrition Goal: Nutritional status is improving Outcome: Progressing T [facility] 11-30-2023 Nurse Note Wound Care arrived to pt's room for Prevention consult, but pt not in room at present time. Will return as time permits. Please Voicera for any questions or concerns. Kaycee Ricardo RN T [facility] 11-30-2023 Note Formatting of this n ote might be different from the original. [facility]. Await review and response regarding ability to accept. TCC notified. [facility] 11-30-2023 Note Formatting of this n ote might be different from the original. Referral placed to [facility] via [facility] per TCC request. Await review and response regarding ability to accept. TCC notified. [facility] 11-30-2023 Note Referral placed to [facility] via [facility] per TCC request. Await review and response regarding ability to accept. TCC notified. [facility] 11-30-2023 Note Formatting of this n ote might be different from the original. Care Managment Initial Assessment Date: 11/30/2023 Patient Name: James Reyes : 1955 Patient Information Source of Information: Patient Cognition/Language: WFL - Within Functional Limits Permission given to speak with patient service liaison representative/caregiver as indicated: No Confirmation of Payer with patient/family: Payer Name: Medicaid [place]: No Confirmation of Primary Care Physician: (Does not know) Primary Caregiver: Self If assistance needed, confirmed caregiver ready, willing and able to care for patient at discharge: Yes Confirmed with: Living Arrangements Current Residence: Number of Floors Number of Entry Steps: Bed/Bath Levels: Facility: Assisted Living Facility Name: [facility] Plan to Return: Yes Lives with: Alone Support Systems: Comments (Other) (assisted living staff) Activities of Daily Living Ambulation: Independent (With rollator) Bathing/Dressing: Independent Elimination/Continence/Toileting: Independent Feeding: Independent Who Assists with Activities of Daily Living: Instrumental Activities of Daily Living Prescription Coverage: Yes Pharmacy Used: [facility] Medication Management: Transportation/Shopping: Transportation Mode: Needs Assistance with Transportation at Discharge: Yes Meal Preparation: (AL) Laundry/Cleaning: (AL) Finances/Bill Paying: (AL) Communication: Independent Types of Care Services/Equipment Utilized Care Services: Dialysis Type: Durable Medical Equipment: Rollator Patient's Goal/Discharge Plan Patient expects to be discharged to: TBD Discharge Planning Actions: Continue to follow Patient's Choice Rights and [employer] and Collaborative Relationships Disclosed as Indicated for Post-Acute Care: Interdisciplinary Team Engagement: Social Work Referral for: Additional Information: [place] per patient. From [facility] D[facility]-Roll[facility]. Per [facility] [place]. DON-Patient will need to be at his baseline to return to [place]. Will continue to follow for therapy recommendation. Jennifer Salazar RN [facility] 11-30-2023 Note Formatting of this n ote might be different from the original. Care Managment Initial Assessment Date: 11/30/2023 Patient Name: James Reyes : 1955 Patient Information Source of Information: Patient Cognition/Language: WFL - Within Functional Limits Permission given to speak with patient service liaison representative/caregiver as indicated: No Confirmation of Payer with patient/family: Payer Name: Medicaid : No Confirmation of Primary Care Physician: (Does not know) Primary Caregiver: Self If assistance needed, confirmed caregiver ready, willing and able to care for patient at discharge: Yes Confirmed with: Living Arrangements Current Residence: Number of Floors Number of Entry Steps: Bed/Bath Levels: Facility: Assisted Living Facility Name: [facility] Plan to Return: Yes Lives with: Alone Support Systems: Comments (Other) (assisted living staff) Activities of Daily Living Ambulation: Independent (With rollator) Bathing/Dressing: Independent Elimination/Continence/Toileting: Independent Feeding: Independent Who Assists with Activities of Daily Living: Instrumental Activities of Daily Living Prescription Coverage: Yes Pharmacy Used: [facility] Medication Management: Transportation/Shopping: Transportation Mode: Needs Assistance with Transportation at Discharge: Yes Meal Preparation: (AL) Laundry/Cleaning: (AL) Finances/Bill Paying: (AL) Communication: Independent Types of Care Services/Equipment Utilized Care Services: Dialysis Type: Durable Medical Equipment: Rollator Patient's Goal/Discharge Plan Patient expects to be discharged to: TBD Discharge Planning Actions: Continue to follow Patient's Choice Rights and [employer] and Collaborative Relationships Disclosed as Indicated for Post-Acute Care: Interdisciplinary Team Engagement: Social Work Referral for: Additional Information: [place] per patient. From [facility] D[facility]. Per [facility]. DON-Patient will need to be at his baseline to return to [place]. Will continue to follow for therapy recommendation. Jennifer Salazar RN T [facility] 11-30-2023 Note Formatting of this n ote might be different from the original. Spoke to [facility]. Pt follows with PCP [facility] [phone] T [facility] 11-30-2023 Note Formatting of this n ote might be different from the original. Spoke to [facility]. Pt follows with PCP Dr.Richard Rodriguez with [facility] [phone] T [facility] 11-30-2023 Nurse Note Krissy from [facility] called and states "James needs to return to baseline before he can return to us, he is usually independent with ADL's and walks safely with his rollator." Krissy's direct line [phone]. T [facility] 11-30-2023 Consult note Associated Order (s): IP CONSULT TO NEUROLOGY INITIAL CONSULT NOTE. STROKE SERVICE Patient Name: James Reyes Patient : 1955 Acct: [id number] Date of Admission: 11/29/2023 [facility] PCP: No primary care provider on file. History of Present Ilness: 68 y.o. is unknown handed made with the chief Complaint of: dizziness explained as vertigo. Complain : Patient was going to the store from assisted diving facility when he paused for a break an sat in his roator walker. while sitting he pushed himself backwards and landed in a ditch making him fall backwards and hitting the back of his head. He had no loss of consciousness, but reported some pain in the head product of the fall. Once in the ED he reports he felt better, but as he was he stood up form bed to be discharge he became really dizzy and he could sense the room was spinning. There was some concerns due to urinary incontinence that happened during the episode, however upon further questioning the urinary incontinence is a chronic problem now and is associated with burning with urination. The dizziness however was the first time it happened. Since then symptoms have resolved, however he has not attempted to get out of bed again. He denies any other complains such as double vision, neck pain, paresthesias, or paresis. Evolution: Head pain form the fall resolved while in the ED, however upon discharge he became dizzy and that as since resolved. Associated symptoms: no other associated symptoms. Urinary incontinence was found to be coincidental on further questioning. This occurred in the setting of: A fall with hit to the head. Past Medical History: Past Medical History: Diagnosis Date Acute kidney injury (HCC) 09/11/2015 CAD in [place] artery 08/08/2017 COPD (chronic obstructive pulmonary disease) (HCC) Developmental disorder Diabetes mellitus (HCC) Esophageal reflux Gastritis see EGD on 03/29/2016 GERD (gastroesophageal reflux disease) Hyperlipidemia IBS (irritable bowel syndrome) Mixed Obesity Osteoarthritis Pain management Plantar fasciitis, bilateral Unspecified sleep apnea Urinary retention Past Surgical History: Past Surgical History: Procedure Laterality Date CHOLECYSTECTOMY 03/29/20162010 COLONOSCOPY 05/23/2017 COLONOSCOPY 03/29/2016, repeat in 10 years, Dr. Ness, normal except internal hemorrhoid COLONOSCOPY N/A 07/18/2022 Performed by David Chen MD at [facility] OR CORONARY ARTERY BYPASS GRAFT FOOT SURGERY Left 2014 HEMORRHOID SURGERY 1997 INNER EAR SURGERY tube placement in ears LAYERED WOUND CLOSURE N/A 10/16/2017 sternal wound debridment and closure with wound vac OTHER SURGICAL HISTORY 10/24/2017 I&D sternal wound with flap OTHER SURGICAL HISTORY punching bag removal THYROID SURGERY nodule removal 2010 TONSILLECTOMY (HISTORICAL) UPPER GASTROINTESTINAL ENDOSCOPY 04/01/2016 gastritis, duodentitis WISDOM TOOTH EXTRACTION Home Medications: Prior to Admission medications Medication Sig Start Date End Date Taking? Authorizing Provider acetaminophen (Tylenol) 325 MG tablet Take 650 mg by mouth every 6 hours as needed. 07/28/21 Historical ProviderMD Advair Diskus 250-50 MCG/ACT aerosol powder 01/21/23 Historical Provider, albuterol (2.5 MG/3ML) 0.083% nebulizer solution Inhale 2.5 mg. 07/28/21 Historical Provider, albuterol 108 (90 Base) MCG/ACT inhaler Inhale 2 puffs every 6 hours as needed. 11/24/16 Historical Provider, aspirin 81 MG chewable tablet Chew 81 mg in the morning. 08/26/21 Historical Provider, atorvastatin (Lipitor) 80 MG tablet Take 80 mg by mouth in the morning. 07/29/21 Historical Provider, carvedilol (Coreg) 6.25 MG tablet Take 1 tablet (6.25 mg) by mouth in the morning and 1 tablet (6.25 mg) in the evening. Take with meals. 02/22/23 Suzy Corcoran MD cholestyramine (Questran) 4 g packet Take 1 packet by mouth in the morning and 1 packet at noon and 1 packet in the evening. Take with meals. Historical Provider, cilostazol (Pletal) 50 MG tablet Take 50 mg by mouth 2 times daily. Historical Provider, clindamycin (Cleocin) 150 MG capsule Take 150 mg by mouth in the morning and 150 mg at noon and 150 mg in the evening and 150 mg before bedtime. Historical Provider, dicyclomine (Bentyl) 10 MG capsule Take 10 mg by mouth 3 times daily. 02/01/23 Historical ProviderMD empagliflozin (Jardiance) 25 MG Take 25 mg by mouth daily. Historical Provider, ergocalciferol (Vitamin D-2) 1.25 MG (53565 UT) capsule Take 1.25 mg by mouth 1 (one) time per week. Every Monday Historical ProviderMD ezetimibe (Zetia) 10 MG tablet Take 10 mg by mouth Nightly. 08/26/21 Historical Provider, famotidine (Pepcid) 20 MG tablet Take 20 mg by mouth in the morning. 08/26/21 Historical ProviderMD finasteride (Proscar) 5 MG tablet Take 5 mg by mouth in the morning. 08/26/21 Historical ProviderMD fluticasone (Flonase) 50 MCG/ACT nasal spray Administer 1 spray into each nostril daily. Shake gently. Before first use, prime pump. After use, clean tip and replace cap. Historical Provider, insulin glargine (Lantus) 100 UNIT/ML injection Inject 48 Units under the skin in the morning. 08/26/21 Historical Provider, Insulin Lispro (Humalog) 100 UNIT/ML solution injection Inject 16 Units under the skin in the morning and 16 Units at noon and 16 Units in the evening. 08/26/21 Historical Provider, nabumetone (Relafen) 500 MG tablet Take 500 mg by mouth 2 times daily. Historical Provider, nitroglycerin (Nitrostat) 0.[address] 0.4 mg under the tongue every 5 minutes as needed for chest pain. Historical Provider, nystatin (Mycostatin) cream 11/08/22 Historical Provider, pancrelipase, Rrr-Gfze-Hbvq, (Creon) 26993-90268 units capsule Take by mouth 3 times daily (with meals). Historical Provider, pregabalin (Lyrica) 150 MG capsule Take 150 mg by mouth 2 times daily. Historical Provider, tamsulosin (Flomax) 0.4 MG 24 hr capsule Take 0.4 mg by mouth in the morning and 0.4 mg in the evening. 05/21/20 Historical ProviderMD tiotropium (Spiriva) [address] 1 capsule into inhaler and inhale in the morning. Historical Provider, Current Hospital Medications: Current Facility-Administered Medications: acetaminophen (Tylenol) tablet 650 mg, 650 mg, Oral, q6h PRN, 650 mg at 11/30/23 0214 OR acetaminophen (Tylenol) suppository 650 mg, 650 mg, Rectal, q6h PRN, Narsiliza Ramiro Bowles MD albuterol (2.5 MG/3ML) 0.083% nebulizer solution 2.5 mg, 2.5 mg, Nebulization, 4x daily, Lorenza Bowles MD aspirin chewable tablet 81 mg, 81 mg, Oral, Daily, Lorenza Bowles MD atorvastatin (Lipitor) tablet 80 mg, 80 mg, Oral, Daily, Lorenza Bowles MD bisacodyl (Dulcolax) suppository 10 mg, 10 mg, Rectal, Daily PRN, Lorenza Bowles MD carvedilol (Coreg) tablet 6.25 mg, 6.25 mg, Oral, BID WC, Lorenza Bowles MD cholestyramine (Questran) packet 4 g, 1 packet, Oral, TID WC, Lorenza Bowles MD cilostazol (Pletal) tablet 50 mg, 50 mg, Oral, BID, Lorenza Bowles MD, 50 mg at 11/30/23 0200 dextrose 5 % infusion, 100 mL/hr, IntraVENous, PRN, Lorenza Bowles MD dextrose 50 % solution 12.5 g, 12.5 g, IntraVENous, PRN, Lorenza Bowles MD dicyclomine (Bentyl) capsule 10 mg, 10 mg, Oral, TID, Lorenza Bowles MD enoxaparin (Lovenox) syringe 40 mg, 40 mg, SubCUTAneous, Daily, Lorenza Bowles MD ezetimibe (Zetia) tablet 10 mg, 10 mg, Oral, Nightly, Lorenza Bowles MD, 10 mg at 11/30/23 0200 famotidine (Pepcid) tablet 20 mg, 20 mg, Oral, Daily, Lorenza Bowles MD finasteride (Proscar) tablet 5 mg, 5 mg, Oral, Daily, Lorenza Bowles MD fluticasone (Flonase) nasal spray 1 spray, 1 spray, Each Nostril, Daily, Lorenza Bowles MD glucagon (human recombinant) injection 1 mg, 1 mg, IntraMUSCular, PRN, Lorenza Bowles MD glucose oral gel 15 g, 15 g, Oral, PRN, Lorenza Bowles MD insulin glargine (Lantus) injection 48 Units, 48 Units, SubCUTAneous, Daily, Lorenza Bowles MD Insulin Lispro (Humalog) injection 16 Units, 16 Units, SubCUTAneous, TID WC, Lorenza Bowles MD labetalol (Normodyne,Trandate) injection 10 mg, 10 mg, IntraVENous, q10 min PRN, Lorenza Bowles MD mometasone-formoterol (Dulera 200) 200-5 MCG/ACT inhaler 2 puff, 2 puff, Inhalation, BID, Lorenza Bowles MD ondansetron ODT (Zofran-ODT) disintegrating tablet 4 mg, 4 mg, Oral, q8h PRN OR ondansetron (Zofran) injection 4 mg, 4 mg, IntraVENous, q6h PRN, Lorenza Bowles MD pancrelipase (Npr-Gehg-Humb) (Creon) 6000-81406 units per capsule 2 capsule, 2 capsule, Oral, TID WC, Lorenza Bowles MD polyethylene glycol (PEG) 3350 (Miralax) packet 17 g, 17 g, Oral, Daily PRN, Lorenza Bowles MD pregabalin (Lyrica) capsule 150 mg, 150 mg, Oral, BID, Lorenza Bowles MD, 150 mg at 11/30/23 0200 sodium chloride 0.9 % infusion, 50 mL/hr, IntraVENous, Continuous, Lorenza Bowles MD, Last Rate: 50 mL/hr at 11/30/23 0200, 50 mL/hr at 11/30/23 0200 tamsulosin (Flomax) 24 hr capsule 0.4 mg, 0.4 mg, Oral, BID, Lorenza Bowles MD, 0.4 mg at 11/30/23 0633 tiotropium (Spiriva Respimat) 2.5 MCG/ACT inhaler 2 puff, 2 puff, Inhalation, Daily, Lorenza Bowles MD Continuous Infusions: sodium chloride, 50 mL/hr, Last Rate: 50 mL/hr (11/30/23 0200) Allergies: Penicillins and Tetracyclines & related Social History: TOBACCO: reports that he has been smoking cigarettes. He started smoking about 50 years ago. He has a 50.6 pack-year smoking history. He has never used smokeless tobacco. ETOH: reports no history of alcohol use. RECREATIONAL DRUG USE: Social History Substance and Sexual Activity Drug Use No Family History: : Family History Problem Relation Name Age of Onset Heart attack Mother 61.00 Heart disease Father Other ([id number]) Brother accident Coronary artery disease Father Diabetes Father ROS; :A complete review of system was performed , pertinent positives noted and remainder are negative Review of Systems HENT: Negative for ear pain, tinnitus and voice change. Dizziness has since resolved Eyes: Negative for photophobia, pain and visual disturbance. Genitourinary: Positive for dysuria (chronic). Physical Examination: Patient Vitals for the past 8 hrs: BP Temp Temp src Pulse Resp SpO2 Height Weight 11/30/23 0630 129/65 36.4 C (97.6 F) Temporal 60 20 93 % -- -- 11/30/23 0042 142/65 36 C (96.8 F) Temporal 59 18 95 % 1.88 m (6' 2") 127 kg (279 lb 14.4 oz) I/O last 3 completed shifts: In: 360 (2.8 mL/kg) [P.O.:120; I.V.:240 (1.9 mL/kg)] Out: 250 (2 mL/kg) [Urine:250 (0.1 mL/kg/hr)] Weight: 127 kg General Physical Examination: General: Laying in bed. Seemed uncomfortable due to chronic back pain. HEENT:Normocephalic, atraumaticl EOMI, PERRLA CV: S1+S2, RRR, no MRG. Pulm:CTA b/l, unlabored Abdomen: Soft NT/ND. BS + Skin: Intact without ulcers, breakdowns or discoloration Extremities: normal with no edema or cyanosis Orthopedic limitation; Yes Uses walker due to back problem Pulses: Intact peripherally Carotid auscultation :No bruits Neurological Examination: Higher Functions: Mental Status Exam: Level of Alertness:Awake Orientation: Normal to self, time, place Memory: Normal Fund of Knowledge: Normal Language: Normal Dysarthria not present Cranial Nerves: -II Visual acuity: normal -II Visual chand: normal -III Pupils (~ 3 mm OD, 3 mm OU) equal, round, reactive to light -III-IV- Extraocular Movements: intact -Nystagmus not present -Saccades and pursuits abnormal -V Facial sensation: intact Corneal's Did not assess -VII Facial strength: intact -VIII Hearing: intact -IX-X- Gag reflex Did not assess -X Palate:intact -XI Shoulder shrug: Normal -XII Tongue movement: normal Funduscopic Exam: normal, no edema or exudates both eyes Motor Examination: Tone after evaluation of 4 limbs, the following findings applied: Normal Bilateral upper extremities Limited assessment of the lower extremity tone due to exacerbation of back pain upon moving the legs. -Bulk: generalized atrophy due to malnourishment anddeconditioning -Muscle Stretchafter evaluation of all limbs, and axial musculature the following findings applied: Drift: absent Normal on the upper extremities. Limited assessment of the lower extremity tone due to exacerbation of back pain upon moving the legs. -Reflexes: after evaluation of 4 limbs, the following findings applied ; normal all limbs -Plantar responce: Flexor bilaterally Sensory Intact to light touch, pain / temperature, proprioception, Coordination: Arms Normal finger to nose Legs limited reliability of exam/ poor participation Due to chronic back pain exacerbation Tremors not present Gait normal NIHSS: 0 Results Labs: Last 24hrs Recent Results (from the past 24 hour(s)) POCT glucose meter Collection Time: 11/29/23 3:33 PM Result Value Ref Range Glucose 84 70 - 100 mg/dL ECG 12 lead Collection Time: 11/29/23 8:20 PM Result Value Ref Range Heart Rate 55 bpm QRSD Interval 126 ms QT Interval 457 ms QTC Interval 439 ms P [place] 13 degrees QRS [place] -44 degrees T Wave [place] 122 degrees [place] Interval 230 ms POCT glucose meter Collection Time: 11/29/23 8:31 PM Result Value Ref Range Glucose 101 (H) 70 - 100 mg/dL CBC auto differential Collection Time: 11/29/23 8:36 PM Result Value Ref Range Auto WBC 7.0 3.6 - 10.7 10*3/uL RBC 3.84 (L) 4.40 - 5.90 10*6/uL Hemoglobin 11.7 (L) 13.0 - 18.0 g/dL Hematocrit 36.9 (L) 40.0 - 52.0 % MCV 96.1 77.0 - 99.0 fL MCH 30.5 26.0 - 34.0 pg MCHC 31.7 30.5 - 36.0 % RDW 15.6 (H) 11.5 - 15.0 % Platelets 219 140 - 440 10*3/uL MPV 10.3 9.0 - 12.7 fL nRBC 0.0 0.0 - 2.0 /100 WBCs Neutrophils Relative 74.4 38.0 - 82.0 % Lymphocytes Relative 13.5 (L) 15.0 - 45.0 % Monocytes Relative 9.5 5.0 - 13.0 % Eosinophils Relative 2.0 0.0 - 6.0 % Basophils Relative 0.3 0.0 - 2.0 % Immature Grans % 0.3 0.0 - 2.0 % Neutrophils Absolute 5.2 1.8 - 7.5 10*3/uL Lymphocytes Absolute 0.9 (L) 1.0 - 4.3 10*3/uL Monocytes Absolute 0.7 0.0 - 0.9 10*3/uL Eosinophils Absolute 0.1 0.0 - 0.5 10*3/uL Basophils Absolute 0.0 0.0 - 0.2 10*3/uL Immature Grans Absolute 0.0 <0.1 10*3/uL Comprehensive metabolic panel Collection Time: 11/29/23 8:36 PM Result Value Ref Range SODIUM 141 135 - 145 mmol/L POTASSIUM 4.1 3.5 - 5.1 mmol/L CHLORIDE 115 (H) 98 - 107 mmol/L CARBON DIOXIDE 21 (L) 22 - 30 mmol/L ANION GAP 5 3 - 13 mmol/L UREA NITROGEN 30 (H) 9 - 20 mg/dL CREATININE 1.13 0.66 - 1.25 mg/dL GLUCOSE 93 70 - 100 mg/dL CALCIUM 9.2 8.4 - 10.4 mg/dL AST (SGOT) 20 15 - 46 U/L ALT 14 0 - 49 U/L ALKALINE PHOSPHATASE 86 38 - 126 U/L ALBUMIN 3.8 3.5 - 5.0 g/dL BILIRUBIN, TOTAL 0.5 0.2 - 1.3 mg/dL TOTAL PROTEIN 6.3 6.3 - 8.2 g/dL eGFR 71.2 >60.0 mL/min/1.73m*2 Protime-INR Collection Time: 11/29/23 8:36 PM Result Value Ref Range PROTHROMBIN TIME 10.9 9.0 - 12.0 s INR 1.0 0.9 - 1.1 Troponin, with Serial Reflex Collection Time: 11/29/23 8:36 PM Result Value Ref Range TROPONIN I <0.012 <0.034 ng/mL Troponin, with Serial Reflex Collection Time: 11/30/23 2:11 AM Result Value Ref Range TROPONIN I <0.012 <0.034 ng/mL Hemoglobin A1c Collection Time: 11/30/23 6:32 AM Result Value Ref Range HEMOGLOBIN A1C 8.5 (H) <5.7 % ESTIMATED AVERAGE GLUCOSE 197 mg/dL Lipid panel - fasting Collection Time: 11/30/23 6:32 AM Result Value Ref Range TRIGLYCERIDE 166 (H) <150 mg/dL CHOLESTEROL 108 <200 mg/dL LOW DENSITY LIPOPROTEIN 33 0 - <100 mg/dL HDL CHOLESTEROL 42 40 - 60 mg/dL CHOL/HDL 3 CBC Collection Time: 11/30/23 6:32 AM Result Value Ref Range Auto WBC 5.1 3.6 - 10.7 10*3/uL RBC 3.56 (L) 4.40 - 5.90 10*6/uL Hemoglobin 10.9 (L) 13.0 - 18.0 g/dL Hematocrit 34.5 (L) 40.0 - 52.0 % MCV 96.9 77.0 - 99.0 fL MCH 30.6 26.0 - 34.0 pg MCHC 31.6 30.5 - 36.0 % RDW 15.6 (H) 11.5 - 15.0 % Platelets 191 140 - 440 10*3/uL MPV 10.4 9.0 - 12.7 fL Comprehensive metabolic panel Collection Time: 11/30/23 6:32 AM Result Value Ref Range SODIUM 138 135 - 145 mmol/L POTASSIUM 3.9 3.5 - 5.1 mmol/L CHLORIDE 115 (H) 98 - 107 mmol/L CARBON DIOXIDE 19 (L) 22 - 30 mmol/L ANION GAP 5 3 - 13 mmol/L UREA NITROGEN 27 (H) 9 - 20 mg/dL CREATININE 1.05 0.66 - 1.25 mg/dL GLUCOSE 121 (H) 70 - 100 mg/dL CALCIUM 8.8 8.4 - 10.4 mg/dL AST (SGOT) 19 15 - 46 U/L ALT 13 0 - 49 U/L ALKALINE PHOSPHATASE 81 38 - 126 U/L ALBUMIN 3.2 (L) 3.5 - 5.0 g/dL BILIRUBIN, TOTAL 0.5 0.2 - 1.3 mg/dL TOTAL PROTEIN 5.7 (L) 6.3 - 8.2 g/dL eGFR 77.8 >60.0 mL/min/1.73m*2 Troponin I Collection Time: 11/30/23 6:32 AM Result Value Ref Range TROPONIN I <0.012 <0.034 ng/mL Since admission: Recent Labs 11/29/23203511/30/23 0211 11/30/23 0632 TROPONINI <0.012 <0.012 <0.012 Recent Labs 11/30/23 0632 ALKPHOS 81 ALT 13 AST 19 BILITOT 0.5 Coagulation: Recent Labs 11/29/232035 INR 1.0 Stroke Specific: Lipids: Recent Labs 11/30/23 0632 CHOL 108 TRIG 166* HDL 42 HgA1c: 8.5 Radiology Personal review: 11/28 CT head wo contrast plus CT cervical spine wo IV contrast: : 1. No acute intracranial findings. Chronic ischemic and atrophic changes. 2. No acute compression deformity or apparent fracture in the cervical spine. Degenerative spondylosis 11/29 TTE: Left Ventricle: Left ventricle size is normal. Mildly increased wall thickness. Normal left ventricular systolic function. EF by 2D Simpsons Biplane is 70%. Normal wall motion. Normal diastolic function. Average E/e' ratio is 7.80. Right Ventricle: Right ventricle size is normal. Normal systolic function. Aorta: Normal sized sinuses of Valsalva. Mildly dilated ascending aorta. Ao ascending diameter is 4.0 cm. No significant valvular abnormalities. ASSESSMENT / PLAN / SUGGESTIONS : Due to the mechanical fall and symptom onset of dizziness hours after the fall and on movement, with no other focal neurological deficits on exam and imaging the dizziness was most likely secondary to the fall. Other differential include inner ear pathologies and dehydration. Stroke in this case is low in the differential due to the absence of other deficits and the urinary incontinence not being and acute problem and most likely coincidental at the time of the complaint of dizziness. Stroke risk factors: -MINERVA -Hemoglobin A1C of 8.5 on insulin -Dyslipidemia wir triglycerides at 166 and LDL under control -HTN under control with Coreg -CAD in [place] artery Dizziness secondary to mechanical fall -CT head and neck negative, MRI pending -TTE not concerning for a cardiovascular etiology of stroke -Recommend OP follow up for control of stroke risk factors and better control of A1C -Recommend starting Vitamin B12 supplementation Patient seen and discussed with Dr. Solorzano Neuro Critical Care / stroke Attending Patient evaluated with my student , whose note was reviewed and corrected when necessary Patient has some inotropia of his eyes but denied any double vision At the time of our exam he had no further dizziness and had no nistagmus Patient has chronic pain in his back and right hip This has been exacerbated since his fall , he is requesting more pain meds At this point we are awaiting for imaging , if he can't have an MRI will request CTA His dizziness was likely related to post traumatic syndrome and its now resolved Main need is to r/o vertebral dissection and or stroke As noted above patient has significant risk factors for stroke , all of which are uncontrol except for his BP At home he is already on multiple meds for stroke preventions ASA, Pletal Zetia + Lipitor 80 His labs suggest relative low control still high Triglyceride, 166 , ( may be primary team can consider tricor And still high Hg A1c , which leads me to concern regarding adherence to diabetic recommendation s Of note he is also extremely low on B12 , which places him at risk not only for neuropathy but also dementia and subacute combine degeneration Suggest , aggressive replacement with B12 and Folic acid, other than enteral rout as one needs to assume poor absortion Delay completion of the attestation , day of service 11/29 as we where awaiting for MRI Will make addendum to this note once imaging completed I personally interviewed and examined this patient , reviewed , corrected, agreed and attested the note for this patient. I reviewed the chart including MAR, labs, neuroimaging, other imaging studies and discussed my diagnostic impression and patient's plan of care with my DERICK/resident/ Fellow , student and the consulting team and patient's family members/surrogate decision makers (in cases where the patient is incapacitated and unable to participate in their own care). [x] Encounter Face to Face [x] Consult [x] Time spend [x] 60 [x] will continue to follow results Personal discussion of test results and plan of care with: Patient treatments and testing options informed consent and plan of care, Admitting Team, ., ., . Thank you No primary care provider on file. for the opportunity to be involved in this patient's care. [facility] 11-30-2023 Consult note Associated Order (s): IP CONSULT TO NEUROLOGY INITIAL CONSULT NOTE. STROKE SERVICE Patient Name: James Reyes Patient : 1955 Acct: [id number] Date of Admission: 11/29/2023 [facility] PCP: No primary care provider on file. History of Present Ilness: 68 y.o. is unknown handed made with the chief Complaint of: dizziness explained as vertigo. Complain : Patient was going to the store from assisted diving facility when he paused for a break an sat in his roator walker. while sitting he pushed himself backwards and landed in a ditch making him fall backwards and hitting the back of his head. He had no loss of consciousness, but reported some pain in the head product of the fall. Once in the ED he reports he felt better, but as he was he stood up form bed to be discharge he became really dizzy and he could sense the room was spinning. There was some concerns due to urinary incontinence that happened during the episode, however upon further questioning the urinary incontinence is a chronic problem now and is associated with burning with urination. The dizziness however was the first time it happened. Since then symptoms have resolved, however he has not attempted to get out of bed again. He denies any other complains such as double vision, neck pain, paresthesias, or paresis. Evolution: Head pain form the fall resolved while in the ED, however upon discharge he became dizzy and that as since resolved. Associated symptoms: no other associated symptoms. Urinary incontinence was found to be coincidental on further questioning. This occurred in the setting of: A fall with hit to the head. Past Medical History: Past Medical History: Diagnosis Date Acute kidney injury (HCC) 09/11/2015 CAD in [place] artery 08/08/2017 COPD (chronic obstructive pulmonary disease) (HCC) Developmental disorder Diabetes mellitus (HCC) Esophageal reflux Gastritis see EGD on 03/29/2016 GERD (gastroesophageal reflux disease) Hyperlipidemia IBS (irritable bowel syndrome) Mixed Obesity Osteoarthritis Pain management Plantar fasciitis, bilateral Unspecified sleep apnea Urinary retention Past Surgical History: Past Surgical History: Procedure Laterality Date CHOLECYSTECTOMY 03/29/20162010 COLONOSCOPY 05/23/2017 COLONOSCOPY 03/29/2016, repeat in 10 years, Dr. Ness, normal except internal hemorrhoid COLONOSCOPY N/A 07/18/2022 Performed by David Chen MD at [facility] OR CORONARY ARTERY BYPASS GRAFT FOOT SURGERY Left 2015 HEMORRHOID SURGERY 1997 INNER EAR SURGERY tube placement in ears LAYERED WOUND CLOSURE N/A 10/16/2017 sternal wound debridment and closure with wound vac OTHER SURGICAL HISTORY 10/24/2017 I&D sternal wound with flap OTHER SURGICAL HISTORY punching bag removal THYROID SURGERY nodule removal 2010 TONSILLECTOMY (HISTORICAL) UPPER GASTROINTESTINAL ENDOSCOPY 04/01/2016 gastritis, duodentitis WISDOM TOOTH EXTRACTION Home Medications: Prior to Admission medications Medication Sig Start Date End Date Taking? Authorizing Provider acetaminophen (Tylenol) 325 MG tablet Take 650 mg by mouth every 6 hours as needed. 07/28/21 Historical Provider, Advair Diskus 250-50 MCG/ACT aerosol powder 01/21/23 Historical Provider, albuterol (2.5 MG/3ML) 0.083% nebulizer solution Inhale 2.5 mg. 07/28/21 Historical Provider, albuterol 108 (90 Base) MCG/ACT inhaler Inhale 2 puffs every 6 hours as needed. 11/24/16 Historical Provider, aspirin 81 MG chewable tablet Chew 81 mg in the morning. 08/26/21 Historical Provider, atorvastatin (Lipitor) 80 MG tablet Take 80 mg by mouth in the morning. 07/29/21 Historical Provider, carvedilol (Coreg) 6.25 MG tablet Take 1 tablet (6.25 mg) by mouth in the morning and 1 tablet (6.25 mg) in the evening. Take with meals. 02/22/23 Suzy Corcoran MD cholestyramine (Questran) 4 g packet Take 1 packet by mouth in the morning and 1 packet at noon and 1 packet in the evening. Take with meals. Historical ProviderMD cilostazol (Pletal) 50 MG tablet Take 50 mg by mouth 2 times daily. Historical Provider, clindamycin (Cleocin) 150 MG capsule Take 150 mg by mouth in the morning and 150 mg at noon and 150 mg in the evening and 150 mg before bedtime. Historical Provider, dicyclomine (Bentyl) 10 MG capsule Take 10 mg by mouth 3 times daily. 02/01/23 Historical ProviderMD empagliflozin (Jardiance) 25 MG Take 25 mg by mouth daily. Historical ProviderMD ergocalciferol (Vitamin D-2) 1.25 MG (20731 UT) capsule Take 1.25 mg by mouth 1 (one) time per week. Every Monday Historical ProviderMD ezetimibe (Zetia) 10 MG tablet Take 10 mg by mouth Nightly. 08/26/21 Historical ProviderMD famotidine (Pepcid) 20 MG tablet Take 20 mg by mouth in the morning. 08/26/21 Historical ProviderMD finasteride (Proscar) 5 MG tablet Take 5 mg by mouth in the morning. 08/26/21 Historical ProviderMD fluticasone (Flonase) 50 MCG/ACT nasal spray Administer 1 spray into each nostril daily. Shake gently. Before first use, prime pump. After use, clean tip and replace cap. Historical Provider, insulin glargine (Lantus) 100 UNIT/ML injection Inject 48 Units under the skin in the morning. 08/26/21 Historical ProviderMD Insulin Lispro (Humalog) 100 UNIT/ML solution injection Inject 16 Units under the skin in the morning and 16 Units at noon and 16 Units in the evening. 08/26/21 Historical ProviderMD nabumetone (Relafen) 500 MG tablet Take 500 mg by mouth 2 times daily. Historical Provider, nitroglycerin (Nitrostat) 0.[address] 0.4 mg under the tongue every 5 minutes as needed for chest pain. Historical Provider, nystatin (Mycostatin) cream 11/08/22 Historical Provider, pancrelipase, Dwk-Pjec-Urre, (Creon) 99209-48331 units capsule Take by mouth 3 times daily (with meals). Historical Provider, pregabalin (Lyrica) 150 MG capsule Take 150 mg by mouth 2 times daily. Historical Provider, tamsulosin (Flomax) 0.4 MG 24 hr capsule Take 0.4 mg by mouth in the morning and 0.4 mg in the evening. 05/21/20 Historical Provider, tiotropium (Spiriva) [address] 1 capsule into inhaler and inhale in the morning. Historical Provider, Current Hospital Medications: Current Facility-Administered Medications: acetaminophen (Tylenol) tablet 650 mg, 650 mg, Oral, q6h PRN, 650 mg at 11/30/23 0214 OR acetaminophen (Tylenol) suppository 650 mg, 650 mg, Rectal, q6h PRN, Lorenza Bowles MD albuterol (2.5 MG/3ML) 0.083% nebulizer solution 2.5 mg, 2.5 mg, Nebulization, 4x daily, Lorenza Bowles MD aspirin chewable tablet 81 mg, 81 mg, Oral, Daily, Lorenza Bowles MD atorvastatin (Lipitor) tablet 80 mg, 80 mg, Oral, Daily, Lorenza Bowles MD bisacodyl (Dulcolax) suppository 10 mg, 10 mg, Rectal, Daily PRN, Lorenza Bowles MD carvedilol (Coreg) tablet 6.25 mg, 6.25 mg, Oral, BID , Lorenza Bowles MD cholestyramine (Questran) packet 4 g, 1 packet, Oral, TID [place], Lorenza Bowles MD cilostazol (Pletal) tablet 50 mg, 50 mg, Oral, BID, Lorenza Bowles MD, 50 mg at 11/30/23 0200 dextrose 5 % infusion, 100 mL/hr, IntraVENous, PRN, Lorenza Bowles MD dextrose 50 % solution 12.5 g, 12.5 g, IntraVENous, PRN, Lorenza Bowles MD dicyclomine (Bentyl) capsule 10 mg, 10 mg, Oral, TID, Lorenza Bowles MD enoxaparin (Lovenox) syringe 40 mg, 40 mg, SubCUTAneous, Daily, Lorenza Bowles MD ezetimibe (Zetia) tablet 10 mg, 10 mg, Oral, Nightly, Lorenza Bowles MD, 10 mg at 11/30/23 0200 famotidine (Pepcid) tablet 20 mg, 20 mg, Oral, Daily, Lorenza Bowles MD finasteride (Proscar) tablet 5 mg, 5 mg, Oral, Daily, Lorenza Bowles MD fluticasone (Flonase) nasal spray 1 spray, 1 spray, Each Nostril, Daily, Lorenza Bowles MD glucagon (human recombinant) injection 1 mg, 1 mg, IntraMUSCular, PRN, Lorenza Bowles MD glucose oral gel 15 g, 15 g, Oral, PRN, Lorenza Bowles MD insulin glargine (Lantus) injection 48 Units, 48 Units, SubCUTAneous, Daily, Lorenza Bowles MD Insulin Lispro (Humalog) injection 16 Units, 16 Units, SubCUTAneous, TID WC, Lorenza Bowles MD labetalol (Normodyne,Trandate) injection 10 mg, 10 mg, IntraVENous, q10 min PRN, Lorenza Bowles MD mometasone-formoterol (Dulera 200) 200-5 MCG/ACT inhaler 2 puff, 2 puff, Inhalation, BID, Lorenza Bowles MD ondansetron ODT (Zofran-ODT) disintegrating tablet 4 mg, 4 mg, Oral, q8h PRN OR ondansetron (Zofran) injection 4 mg, 4 mg, IntraVENous, q6h PRN, Lorenza Bowles MD pancrelipase (Eps-Csuz-Edst) (Creon) [id number] units per capsule 2 capsule, 2 capsule, Oral, TID WC, Lorenza Bowlse MD polyethylene glycol (PEG) 3350 (Miralax) packet 17 g, 17 g, Oral, Daily PRN, Lorenza Bowles MD pregabalin (Lyrica) capsule 150 mg, 150 mg, Oral, BID, Lorenza Bowles MD, 150 mg at 11/30/23 0200 sodium chloride 0.9 % infusion, 50 mL/hr, IntraVENous, Continuous, Lorenza Bowles MD, Last Rate: 50 mL/hr at 11/30/23 0200, 50 mL/hr at 11/30/23 0200 tamsulosin (Flomax) 24 hr capsule 0.4 mg, 0.4 mg, Oral, BID, Lorenza Bowles MD, 0.4 mg at 11/30/23 0633 tiotropium (Spiriva Respimat) 2.5 MCG/ACT inhaler 2 puff, 2 puff, Inhalation, Daily, Lorenza Bowles MD Continuous Infusions: sodium chloride, 50 mL/hr, Last Rate: 50 mL/hr (11/30/23 020) Allergies: Penicillins and Tetracyclines & related Social History: TOBACCO: reports that he has been smoking cigarettes. He started smoking about 50 years ago. He has a 50.6 pack-year smoking history. He has never used smokeless tobacco. ETOH: reports no history of alcohol use. RECREATIONAL DRUG USE: Social History Substance and Sexual Activity Drug Use No Family History: : Family History Problem Relation Name Age of Onset Heart attack Mother 61.00 Heart disease Father Other ([id number]) Brother accident Coronary artery disease Father Diabetes Father ROS; :A complete review of system was performed , pertinent positives noted and remainder are negative Review of Systems HENT: Negative for ear pain, tinnitus and voice change. Dizziness has since resolved Eyes: Negative for photophobia, pain and visual disturbance. Genitourinary: Positive for dysuria (chronic). Physical Examination: Patient Vitals for the past 8 hrs: BP Temp Temp src Pulse Resp SpO2 Height Weight 11/30/23 0630 129/65 36.4 C (97.6 F) Temporal 60 20 93 % -- -- 11/30/23 0042 142/65 36 C (96.8 F) Temporal 59 18 95 % 1.88 m (6' 2") 127 kg (279 lb 14.4 oz) I/O last 3 completed shifts: In: 360 (2.8 mL/kg) [P.O.:120; I.V.:240 (1.9 mL/kg)] Out: 250 (2 mL/kg) [Urine:250 (0.1 mL/kg/hr)] Weight: 127 kg General Physical Examination: General: Laying in bed. Seemed uncomfortable due to chronic back pain. HEENT:Normocephalic, atraumaticl EOMI, PERRLA CV: S1+S2, RRR, no MRG. Pulm:CTA b/l, unlabored Abdomen: Soft NT/ND. BS + Skin: Intact without ulcers, breakdowns or discoloration Extremities: normal with no edema or cyanosis Orthopedic limitation; Yes Uses walker due to back problem Pulses: Intact peripherally Carotid auscultation :No bruits Neurological Examination: Higher Functions: Mental Status Exam: Level of Alertness:Awake Orientation: Normal to self, time, place Memory: Normal Fund of Knowledge: Normal Language: Normal Dysarthria not present Cranial Nerves: -II Visual acuity: normal -II Visual chand: normal -III Pupils (~ 3 mm OD, 3 mm OU) equal, round, reactive to light -III-IV- Extraocular Movements: intact -Nystagmus not present -Saccades and pursuits abnormal -V Facial sensation: intact Corneal's Did not assess -VII Facial strength: intact -VIII Hearing: intact -IX-X- Gag reflex Did not assess -X Palate:intact -XI Shoulder shrug: Normal -XII Tongue movement: normal Funduscopic Exam: normal, no edema or exudates both eyes Motor Examination: Tone after evaluation of 4 limbs, the following findings applied: Normal Bilateral upper extremities Limited assessment of the lower extremity tone due to exacerbation of back pain upon moving the legs. -Bulk: generalized atrophy due to malnourishment anddeconditioning -Muscle Stretchafter evaluation of all limbs, and axial musculature the following findings applied: Drift: absent Normal on the upper extremities. Limited assessment of the lower extremity tone due to exacerbation of back pain upon moving the legs. -Reflexes: after evaluation of 4 limbs, the following findings applied ; normal all limbs -Plantar responce: Flexor bilaterally Sensory Intact to light touch, pain / temperature, proprioception, Coordination: Arms Normal finger to nose Legs limited reliability of exam/ poor participation Due to chronic back pain exacerbation Tremors not present Gait normal NIHSS: 0 Results Labs: Last 24hrs Recent Results (from the past 24 hour(s)) POCT glucose meter Collection Time: 11/29/23 3:33 PM Result Value Ref Range Glucose 84 70 - 100 mg/dL ECG 12 lead Collection Time: 11/29/23 8:20 PM Result Value Ref Range Heart Rate 55 bpm QRSD Interval 126 ms QT Interval 457 ms QTC Interval 439 ms P [place] 13 degrees QRS [place] -44 degrees T Wave [place] 122 degrees [place] Interval 230 ms POCT glucose meter Collection Time: 11/29/23 8:31 PM Result Value Ref Range Glucose 101 (H) 70 - 100 mg/dL CBC auto differential Collection Time: 11/29/23 8:36 PM Result Value Ref Range Auto WBC 7.0 3.6 - 10.7 10*3/uL RBC 3.84 (L) 4.40 - 5.90 10*6/uL Hemoglobin 11.7 (L) 13.0 - 18.0 g/dL Hematocrit 36.9 (L) 40.0 - 52.0 % MCV 96.1 77.0 - 99.0 fL MCH 30.5 26.0 - 34.0 pg MCHC 31.7 30.5 - 36.0 % RDW 15.6 (H) 11.5 - 15.0 % Platelets 219 140 - 440 10*3/uL MPV 10.3 9.0 - 12.7 fL nRBC 0.0 0.0 - 2.0 /100 WBCs Neutrophils Relative 74.4 38.0 - 82.0 % Lymphocytes Relative 13.5 (L) 15.0 - 45.0 % Monocytes Relative 9.5 5.0 - 13.0 % Eosinophils Relative 2.0 0.0 - 6.0 % Basophils Relative 0.3 0.0 - 2.0 % Immature Grans % 0.3 0.0 - 2.0 % Neutrophils Absolute 5.2 1.8 - 7.5 10*3/uL Lymphocytes Absolute 0.9 (L) 1.0 - 4.3 10*3/uL Monocytes Absolute 0.7 0.0 - 0.9 10*3/uL Eosinophils Absolute 0.1 0.0 - 0.5 10*3/uL Basophils Absolute 0.0 0.0 - 0.2 10*3/uL Immature Grans Absolute 0.0 <0.1 10*3/uL Comprehensive metabolic panel Collection Time: 11/29/23 8:36 PM Result Value Ref Range SODIUM 141 135 - 145 mmol/L POTASSIUM 4.1 3.5 - 5.1 mmol/L CHLORIDE 115 (H) 98 - 107 mmol/L CARBON DIOXIDE 21 (L) 22 - 30 mmol/L ANION GAP 5 3 - 13 mmol/L UREA NITROGEN 30 (H) 9 - 20 mg/dL CREATININE 1.13 0.66 - 1.25 mg/dL GLUCOSE 93 70 - 100 mg/dL CALCIUM 9.2 8.4 - 10.4 mg/dL AST (SGOT) 20 15 - 46 U/L ALT 14 0 - 49 U/L ALKALINE PHOSPHATASE 86 38 - 126 U/L ALBUMIN 3.8 3.5 - 5.0 g/dL BILIRUBIN, TOTAL 0.5 0.2 - 1.3 mg/dL TOTAL PROTEIN 6.3 6.3 - 8.2 g/dL eGFR 71.2 >60.0 mL/min/1.73m*2 Protime-INR Collection Time: 11/29/23 8:36 PM Result Value Ref Range PROTHROMBIN TIME 10.9 9.0 - 12.0 s INR 1.0 0.9 - 1.1 Troponin, with Serial Reflex Collection Time: 11/29/23 8:36 PM Result Value Ref Range TROPONIN I <0.012 <0.034 ng/mL Troponin, with Serial Reflex Collection Time: 11/30/23 2:11 AM Result Value Ref Range TROPONIN I <0.012 <0.034 ng/mL Hemoglobin A1c Collection Time: 11/30/23 6:32 AM Result Value Ref Range HEMOGLOBIN A1C 8.5 (H) <5.7 % ESTIMATED AVERAGE GLUCOSE 197 mg/dL Lipid panel - fasting Collection Time: 11/30/23 6:32 AM Result Value Ref Range TRIGLYCERIDE 166 (H) <150 mg/dL CHOLESTEROL 108 <200 mg/dL LOW DENSITY LIPOPROTEIN 33 0 - <100 mg/dL HDL CHOLESTEROL 42 40 - 60 mg/dL CHOL/HDL 3 CBC Collection Time: 11/30/23 6:32 AM Result Value Ref Range Auto WBC 5.1 3.6 - 10.7 10*3/uL RBC 3.56 (L) 4.40 - 5.90 10*6/uL Hemoglobin 10.9 (L) 13.0 - 18.0 g/dL Hematocrit 34.5 (L) 40.0 - 52.0 % MCV 96.9 77.0 - 99.0 fL MCH 30.6 26.0 - 34.0 pg MCHC 31.6 30.5 - 36.0 % RDW 15.6 (H) 11.5 - 15.0 % Platelets 191 140 - 440 10*3/uL MPV 10.4 9.0 - 12.7 fL Comprehensive metabolic panel Collection Time: 11/30/23 6:32 AM Result Value Ref Range SODIUM 138 135 - 145 mmol/L POTASSIUM 3.9 3.5 - 5.1 mmol/L CHLORIDE 115 (H) 98 - 107 mmol/L CARBON DIOXIDE 19 (L) 22 - 30 mmol/L ANION GAP 5 3 - 13 mmol/L UREA NITROGEN 27 (H) 9 - 20 mg/dL CREATININE 1.05 0.66 - 1.25 mg/dL GLUCOSE 121 (H) 70 - 100 mg/dL CALCIUM 8.8 8.4 - 10.4 mg/dL AST (SGOT) 19 15 - 46 U/L ALT 13 0 - 49 U/L ALKALINE PHOSPHATASE 81 38 - 126 U/L ALBUMIN 3.2 (L) 3.5 - 5.0 g/dL BILIRUBIN, TOTAL 0.5 0.2 - 1.3 mg/dL TOTAL PROTEIN 5.7 (L) 6.3 - 8.2 g/dL eGFR 77.8 >60.0 mL/min/1.73m*2 Troponin I Collection Time: 11/30/23 6:32 AM Result Value Ref Range TROPONIN I <0.012 <0.034 ng/mL Since admission: Recent Labs 11/29/23203511/30/2321011/30/23 0632 TROPONINI <0.012 <0.012 <0.012 Recent Labs 11/30/23 0632 ALKPHOS 81 ALT 13 AST 19 BILITOT 0.5 Coagulation: Recent Labs 08/14/24 2036 INR 1.0 Stroke Specific: Lipids: Recent Labs 11/30/23 0632 CHOL 108 TRIG 166* HDL 42 HgA1c: 8.5 Radiology Personal review: 11/28 CT head wo contrast plus CT cervical spine wo IV contrast: : 1. No acute intracranial findings. Chronic ischemic and atrophic changes. 2. No acute compression deformity or apparent fracture in the cervical spine. Degenerative spondylosis 11/29 TTE: Left Ventricle: Left ventricle size is normal. Mildly increased wall thickness. Normal left ventricular systolic function. EF by 2D Simpsons Biplane is 70%. Normal wall motion. Normal diastolic function. Average E/e' ratio is 7.80. Right Ventricle: Right ventricle size is normal. Normal systolic function. Aorta: Normal sized sinuses of Valsalva. Mildly dilated ascending aorta. Ao ascending diameter is 4.0 cm. No significant valvular abnormalities. ASSESSMENT / PLAN / SUGGESTIONS : Due to the mechanical fall and symptom onset of dizziness hours after the fall and on movement, with no other focal neurological deficits on exam and imaging the dizziness was most likely secondary to the fall. Other differential include inner ear pathologies and dehydration. Stroke in this case is low in the differential due to the absence of other deficits and the urinary incontinence not being and acute problem and most likely coincidental at the time of the complaint of dizziness. Stroke risk factors: -MINERVA -Hemoglobin A1C of 8.5 on insulin -Dyslipidemia wir triglycerides at 166 and LDL under control -HTN under control with Coreg -CAD in [place] artery Dizziness secondary to mechanical fall -CT head and neck negative, MRI pending -TTE not concerning for a cardiovascular etiology of stroke -Recommend OP follow up for control of stroke risk factors and better control of A1C -Recommend starting Vitamin B12 supplementation Patient seen and discussed with Dr. Solorzano Neuro Critical Care / stroke Attending Patient evaluated with my student , whose note was reviewed and corrected when necessary Patient has some inotropia of his eyes but denied any double vision At the time of our exam he had no further dizziness and had no nistagmus Patient has chronic pain in his back and right hip This has been exacerbated since his fall , he is requesting more pain meds At this point we are awaiting for imaging , if he can't have an MRI will request CTA His dizziness was likely related to post traumatic syndrome and its now resolved Main need is to r/o vertebral dissection and or stroke As noted above patient has significant risk factors for stroke , all of which are uncontrol except for his BP At home he is already on multiple meds for stroke preventions ASA, Pletal Zetia + Lipitor 80 His labs suggest relative low control still high Triglyceride, 166 , ( may be primary team can consider tricor And still high Hg A1c , which leads me to concern regarding adherence to diabetic recommendation s Of note he is also extremely low on B12 , which places him at risk not only for neuropathy but also dementia and subacute combine degeneration Suggest , aggressive replacement with B12 and Folic acid, other than enteral rout as one needs to assume poor absortion Delay completion of the attestation , day of service 11/29 as we where awaiting for MRI Will make addendum to this note once imaging completed I personally interviewed and examined this patient , reviewed , corrected, agreed and attested the note for this patient. I reviewed the chart including MAR, labs, neuroimaging, other imaging studies and discussed my diagnostic impression and patient's plan of care with my DERICK/resident/ Fellow , student and the consulting team and patient's family members/surrogate decision makers (in cases where the patient is incapacitated and unable to participate in their own care). [x] Encounter Face to Face [x] Consult [x] Time spend [x] 60 [x] will continue to follow results Personal discussion of test results and plan of care with: Patient treatments and testing options informed consent and plan of care, Admitting Team, ., ., . Thank you No primary care provider on file. for the opportunity to be involved in this patient's care. documented in this encounter [facility] 11-30-2023 Plan of care note The patient is Moderately Stable - Low risk of patient condition declining or worsening The patient's goals for the shift include adequate rest The clinical goals for the shift include absence of neurological defecits Problem: Knowledge Deficit Goal: Patient/family/caregiver demonstrates understanding of disease process, treatment plan, medications, and discharge instructions Outcome: Progressing Flowsheets (Taken 11/30/2023 2901) Patient/family/caregiver demonstrates understanding of disease process, treatment plan, medications, and discharge instructions: Complete learning assessment and assess knowledge base Provide teaching at level of understanding Provide teaching via preferred learning methods Problem: Potential for Compromised Skin Integrity Goal: Skin Integrity is Maintained or Improved Outcome: Progressing Flowsheets (Taken 11/30/2023508) Skin integrity is maintained or improved: Assess and monitor skin integrity Collaborate with interdisciplinary team and initiate plans and interventions as needed Relieve pressure to bony prominences Keep skin clean and dry Encourage use of lotion/moisturizer on skin Monitor patient's hygiene practices Alternate a full bath with partial baths for elderly Avoid shearing Turn patient Identify patients at risk for skin breakdown on admission and per policy Collaborate with wound, ostomy, and continence nurse Goal: Nutritional status is improving Outcome: Progressing Flowsheets (Taken 11/30/2023508) Nutritional status is improving: Monitor and assess patient for malnutrition (ex- brittle hair, bruises, dry skin, pale skin and conjunctiva, muscle wasting, smooth red tongue, and disorientation) Monitor patient's weight and dietary intake as ordered or per policy Determine patient's food preferences and provide high-protein, high-caloric foods as appropriate Allow adequate time for meals Collaborate with clinical forensic psychiatrist Collaborate with interdisciplinary team and initiate plan and interventions as ordered Utilize nutrition screening tool and intervene per policy Assist patient with eating Encourage patient to take dietary supplement as ordered Include patient/family/caregiver in decisions related to nutrition Problem: Urinary Incontinence Goal: Perineal skin integrity is maintained or improved Outcome: Progressing Flowsheets (Taken 11/30/2023508) Perineal skin integrity is maintained or improved: Assess genitourinary system, perineal skin, labs (urinalysis), and history of incontinence to include past management, aggravating, and alleviating factors Collaborate with interdisciplinary team including wound, ostomy, and continence nurse and initiate plans and interventions as needed Keep skin clean and dry Apply urine containment device Apply skin protectant Develop skin care regimen Provide privacy when changing patient's incontinence device to maintain their dignity Problem: Neurological Deficit Goal: Neurological status is stable or improving Outcome: Progressing Problem: Activity Intolerance/Impaired Mobility Goal: Mobility/activity is maintained at optimum level for patient Outcome: Progressing Problem: Communication Impairment Goal: Ability to express needs and understand communication Outcome: Progressing Problem: Potential for Aspiration Goal: Non-ventilated patient's risk of aspiration is minimized Outcome: Progressing Problem: Nutrition Goal: Nutritional status is improving Outcome: Progressing Flowsheets (Taken 11/30/2023 0500) Nutritional status is improving: Monitor and assess patient for malnutrition (ex- brittle hair, bruises, dry skin, pale skin and conjunctiva, muscle wasting, smooth red tongue, and disorientation) Monitor patient's weight and dietary intake as ordered or per policy Determine patient's food preferences and provide high-protein, high-caloric foods as appropriate Allow adequate time for meals Collaborate with clinical forensic psychiatrist Collaborate with interdisciplinary team and initiate plan and interventions as ordered Utilize nutrition screening tool and intervene per policy Assist patient with eating Encourage patient to take dietary supplement as ordered Include patient/family/caregiver in decisions related to nutrition Problem: Discharge Barriers Goal: My discharge needs are met Outcome: Progressing [facility] 11-30-2023 History and physical note Attending History and Physical Admit Date: 11/29/2023 PCP: No primary care provider on file. CHIEF COMPLAINT: Chief Complaint Patient presents with Fall Head Laceration HISTORY OF PRESENT ILLNESS: James is a 68 y.o. male with past medical history below who presents with chief complaint listed above. Pt was walking with his rollator on a[place] to go get cigarettes. Pt lost his balance while walking and stumbled onto grass and fell backwards hitting his head. Denied loss of consciousness, vision changes, slurred speech, weakness/numbness in extremity, or nausea/vomiting. Will admit for further evaluation and management. Past Medical History: Past Medical History: Diagnosis Date Acute kidney injury (HCC) 09/11/2015 CAD in [place] artery 08/08/2017 COPD (chronic obstructive pulmonary disease) (HCC) Developmental disorder Diabetes mellitus (HCC) Esophageal reflux Gastritis see EGD on 03/29/2016 GERD (gastroesophageal reflux disease) Hyperlipidemia IBS (irritable bowel syndrome) Mixed Obesity Osteoarthritis Pain management Plantar fasciitis, bilateral Unspecified sleep apnea Urinary retention Past Surgical History: Past Surgical History: Procedure Laterality Date CHOLECYSTECTOMY 03/29/20162010 COLONOSCOPY 05/23/2017 COLONOSCOPY 03/29/2016, repeat in 10 years, Dr. Ness, normal except internal hemorrhoid COLONOSCOPY N/A 07/18/2022 Performed by David Chen MD at [facility] OR CORONARY ARTERY BYPASS GRAFT FOOT SURGERY Left 2015 HEMORRHOID SURGERY 1998 INNER EAR SURGERY tube placement in ears LAYERED WOUND CLOSURE N/A 10/16/2017 sternal wound debridment and closure with wound vac OTHER SURGICAL HISTORY 10/24/2017 I&D sternal wound with flap OTHER SURGICAL HISTORY punching bag removal THYROID SURGERY nodule removal 2010 TONSILLECTOMY (HISTORICAL) UPPER GASTROINTESTINAL ENDOSCOPY 04/01/2016 gastritis, duodentitis WISDOM TOOTH EXTRACTION Social History: Social History Socioeconomic History Marital status: Single Spouse name: Not on file Number of children: Not on file Years of education: Not on file Highest education level: Not on file Occupational History Not on file Tobacco Use Smoking status: Every Day Current packs/day: 1.00 Average packs/day: 1 pack/day for 50.6 years (50.6 ttl pk-yrs) Types: Cigarettes Start date: 04/28/1973 Smokeless tobacco: Never Vaping Use Vaping status: Never Used Substance and Sexual Activity Alcohol use: No Alcohol/week: 0.0 standard drinks of alcohol Drug use: No Sexual activity: Not on file Comment: single Other Topics Concern Not on file Social History Narrative Not on file Social Determinants of Health Financial Resource Strain: Not on file Food Insecurity: Not on file Transportation Needs: No Transportation Needs (11/30/2023) PRAPARE - Transportation Lack of Transportation (Medical): No Lack of Transportation (Non-Medical): No Physical Activity: Not on file Stress: Not on file Social Connections: Not on file Intimate Partner Violence: Not At Risk (11/30/2023) Humiliation, Afraid, Rape, and Kick questionnaire Fear of Current or Ex-Partner: No Emotionally Abused: No Physically Abused: No Sexually Abused: No Housing Stability: Low Risk (11/30/2023) Housing Stability Vital Sign Unable to Pay for Housing in the Last Year: No Number of Times Moved in the Last Year: 0 Homeless in the Last Year: No Family History: Family History Problem Relation Name Age of Onset Heart attack Mother 61.00 Heart disease Father Other ([id number]) Brother accident Coronary artery disease Father Diabetes Father Medications Prior to Admission: No current facility-administered medications on file prior to encounter. Current Outpatient Medications on File Prior to Encounter Medication Sig Dispense Refill acetaminophen (Tylenol) 325 MG tablet Take 650 mg by mouth every 6 hours as needed. Advair Diskus 250-50 MCG/ACT aerosol powder albuterol (2.5 MG/3ML) 0.083% nebulizer solution Inhale 2.5 mg. albuterol 108 (90 Base) MCG/ACT inhaler Inhale 2 puffs every 6 hours as needed. aspirin 81 MG chewable tablet Chew 81 mg in the morning. atorvastatin (Lipitor) 80 MG tablet Take 80 mg by mouth in the morning. carvedilol (Coreg) 6.25 MG tablet Take 1 tablet (6.25 mg) by mouth in the morning and 1 tablet (6.25 mg) in the evening. Take with meals. 180 tablet 3 cholestyramine (Questran) 4 g packet Take 1 packet by mouth in the morning and 1 packet at noon and 1 packet in the evening. Take with meals. cilostazol (Pletal) 50 MG tablet Take 50 mg by mouth 2 times daily. clindamycin (Cleocin) 150 MG capsule Take 150 mg by mouth in the morning and 150 mg at noon and 150 mg in the evening and 150 mg before bedtime. dicyclomine (Bentyl) 10 MG capsule Take 10 mg by mouth 3 times daily. empagliflozin (Jardiance) 25 MG Take 25 mg by mouth daily. ergocalciferol (Vitamin D-2) 1.25 MG (37832 UT) capsule Take 1.25 mg by mouth 1 (one) time per week. Every Monday ezetimibe (Zetia) 10 MG tablet Take 10 mg by mouth Nightly. famotidine (Pepcid) 20 MG tablet Take 20 mg by mouth in the morning. finasteride (Proscar) 5 MG tablet Take 5 mg by mouth in the morning. fluticasone (Flonase) 50 MCG/ACT nasal spray Administer 1 spray into each nostril daily. Shake gently. Before first use, prime pump. After use, clean tip and replace cap. insulin glargine (Lantus) 100 UNIT/ML injection Inject 48 Units under the skin in the morning. Insulin Lispro (Humalog) 100 UNIT/ML solution injection Inject 16 Units under the skin in the morning and 16 Units at noon and 16 Units in the evening. nabumetone (Relafen) 500 MG tablet Take 500 mg by mouth 2 times daily. nitroglycerin (Nitrostat) 0.[address] 0.4 mg under the tongue every 5 minutes as needed for chest pain. nystatin (Mycostatin) cream pancrelipase, Azx-Fktb-Jqhm, (Creon) [id number] units capsule Take by mouth 3 times daily (with meals). pregabalin (Lyrica) 150 MG capsule Take 150 mg by mouth 2 times daily. tamsulosin (Flomax) 0.4 MG 24 hr capsule Take 0.4 mg by mouth in the morning and 0.4 mg in the evening. tiotropium (Spiriva) [address] 1 capsule into inhaler and inhale in the morning. Allergies: Allergies Allergen Reactions Penicillins Other reaction(s): Other (See Comments), Unknown unknown Tetracyclines & Related Other reaction(s): Other (See Comments), Unknown unknown REVIEW OF SYSTEMS: As per HPI Vitals: BP 142/65 (BP Location: Left arm, Patient Position: Lying) Pulse 59 Temp 36 C (96.8 F) (Temporal) Resp 18 Wt 275 lb (125 kg) SpO2 95% BMI 36.28 kg/m BMI Classification: Pulse Ox: SpO2 Av.5 % Min: 92 % Max: 95 % Supplemental O2: PHYSICAL EXAM: Physical Exam HEENT: PERRLA, EOMI Neck: supple, nontender Chest: BLAE, clear CVS: S1+, S2+, no m/r/g Abdomen: soft, nontender, BS+ PROBLEM MANAGER: Awake and alert, motor and sensory grossly intact Ext: pulse 2+ NIH Stroke Scale: 0 DATA: CBC: Recent Labs 11/29/232035 WBC 7.0 RBC 3.84* HGB 11.7* HCT 36.9* MCV 96.1 RDW 15.6* PLT 219 BMP: Recent Labs 11/29/232035 NA 141 K 4.1 CL 115* CO2 21* BUN 30* CREATININE 1.13 GLUCOSE 93 CALCIUM 9.2 ANIONGAP 5 LIVER PROFILE: Recent Labs 11/29/232035 AST 20 ALT 14 BILITOT 0.5 ALKPHOS 86 PROT 6.3 PT/INR: Recent Labs 11/29/232035 PROTIME 10.9 INR 1.0 CARDIAC ENZYMES: Recent Labs 11/29/232035 TROPONINI <0.012 Procalcitonin: No results found for: "PROCAL" Urine Culture: No results found for this or any previous visit. COVID-19 PCR: No results for input(s): "COVID19" in the last 72 hours. I reviewed: [x] laboratory results [x] radiographic results At the time of today's encounter. Pt was advised of the results. Data: (LOW: 2x CAT1 or independent historian MOD: 3x CAT1 or 1x CAT3 EXTENSIVE: 3x CAT1 and 1x CAT3) Assessment Discussed management with the ED provider and agree with hospitalization. Acute, acute on chronic, unstable/uncontrolled chronic problems/diagnoses: # s/p mechanical fall # dizziness - concern for cva - ct head without acute findings - tele - mri brain - neurology consult - pt/ot evaluation Stable chronic problems affecting care, new non-acute diagnoses: Past Medical History: Diagnosis Date Acute kidney injury (HCC) 09/11/2015 CAD in [place] artery 08/08/2017 COPD (chronic obstructive pulmonary disease) (HCC) Developmental disorder Diabetes mellitus (HCC) Esophageal reflux Gastritis see EGD on 03/29/2016 GERD (gastroesophageal reflux disease) Hyperlipidemia IBS (irritable bowel syndrome) Mixed Obesity Osteoarthritis Pain management Plantar fasciitis, bilateral Unspecified sleep apnea Urinary retention Plan As a result of the above findings & factors, the following mgmt was pursued: - am labs, replace lytes prn - PT/OT/CM/SW - delirium precautions: increase activity - DVT prophylaxis: enoxaparin and encourage ambulation Advance Directive: Full Code Anticipated Discharge - Date - tbd - Location - tbd - Pending the following - clinical course Total time spent (which include face to face and non face to face encounters) : 56 minutes. Extended Emergency Contact Information Primary Emergency Contact: Sreekanth Reyes [place] Relation: Sibling [employer] James Reyes : 1955 Primary Care Physician: No primary care provider on file. The patient and/or family/surrogate voluntarily agreed to participate in ACP services. Patient s cognitive capacity: yes Code Status: [x] [FULL CODE - Continue all advanced life support: CPR,intubation,invasive procedures] [_] [DNR-CCA - DO NOT do CPR, intubation] [_] [DNR-FINGERPRINT EXPERT - Comfort care only] [_] DNR form [was/was not] signed Summary of discussion: The patient health care POA/ surrogate is the following: none [Condition that instigated the ACP on this DOS, relevant PMH, functional status, goals of care, and whom this was discussed with including names and relationship to the patient, and any relevant advance care documentation discussion] I answered all the patient/family questions that I could within the range and scope of the current medical situation. We discussed the medical conditions, risks, benefits, outcomes, and goals of care at this time for the patient's medical issues at hand in the face of the patient's chronic issues and current presentation. Total time spent: 2 minutes were spent discussing the patient's resuscitation status, advance care planning, and end of life care, with patient and/or family/surrogate. Lorenza Bowles MD Division of Hospitalist [facility] Work Phone: 11-30-2023 Note [facility] 11-30-2023 History and physical note Attending History and Physical Admit Date: 11/29/2023 PCP: No primary care provider on file. CHIEF COMPLAINT: Chief Complaint Patient presents with Fall Head Laceration HISTORY OF PRESENT ILLNESS: James is a 68 y.o. male with past medical history below who presents with chief complaint listed above. Pt was walking with his rollator [place] [facility] to go get [place]. Pt lost his balance while walking and stumbled onto grass and fell backwards hitting his head. Denied loss of consciousness, vision changes, slurred speech, weakness/numbness in extremity, or nausea/vomiting. Will admit for further evaluation and management. Past Medical History: Past Medical History: Diagnosis Date Acute kidney injury (HCC) 09/11/2015 CAD in [place] artery 08/08/2017 COPD (chronic obstructive pulmonary disease) (HCC) Developmental disorder Diabetes mellitus (HCC) Esophageal reflux Gastritis see EGD on 03/29/2016 GERD (gastroesophageal reflux disease) Hyperlipidemia IBS (irritable bowel syndrome) Mixed Obesity Osteoarthritis Pain management Plantar fasciitis, bilateral Unspecified sleep apnea Urinary retention Past Surgical History: Past Surgical History: Procedure Laterality Date CHOLECYSTECTOMY 03/29/20162010 COLONOSCOPY 05/23/2017 COLONOSCOPY 03/29/2016, repeat in 10 years, Dr. Ness, normal except internal hemorrhoid COLONOSCOPY N/A 07/18/2022 Performed by David Chen MD at [facility] OR CORONARY ARTERY BYPASS GRAFT FOOT SURGERY Left 2015 HEMORRHOID SURGERY 1998 INNER EAR SURGERY tube placement in ears LAYERED WOUND CLOSURE N/A 10/16/2017 sternal wound debridment and closure with wound vac OTHER SURGICAL HISTORY 10/24/2017 I&D sternal wound with flap OTHER SURGICAL HISTORY punching bag removal THYROID SURGERY nodule removal 2010 TONSILLECTOMY (HISTORICAL) UPPER GASTROINTESTINAL ENDOSCOPY 04/01/2016 gastritis, duodentitis WISDOM TOOTH EXTRACTION Social History: Social History Socioeconomic History Marital status: Single Spouse name: Not on file Number of children: Not on file Years of education: Not on file Highest education level: Not on file Occupational History Not on file Tobacco Use Smoking status: Every Day Current packs/day: 1.00 Average packs/day: 1 pack/day for 50.6 years (50.6 ttl pk-yrs) Types: Cigarettes Start date: 04/28/1973 Smokeless tobacco: Never Vaping Use Vaping status: Never Used Substance and Sexual Activity Alcohol use: No Alcohol/week: 0.0 standard drinks of alcohol Drug use: No Sexual activity: Not on file Comment: single Other Topics Concern Not on file Social History Narrative Not on file Social Determinants of Health Financial Resource Strain: Not on file Food Insecurity: Not on file Transportation Needs: No Transportation Needs (11/30/2023) PRAPARE - Transportation Lack of Transportation (Medical): No Lack of Transportation (Non-Medical): No Physical Activity: Not on file Stress: Not on file Social Connections: Not on file Intimate Partner Violence: Not At Risk (11/30/2023) Humiliation, Afraid, Rape, and Kick questionnaire Fear of Current or Ex-Partner: No Emotionally Abused: No Physically Abused: No Sexually Abused: No Housing Stability: Low Risk (11/30/2023) Housing Stability Vital Sign Unable to Pay for Housing in the Last Year: No Number of Times Moved in the Last Year: 0 Homeless in the Last Year: No Family History: Family History Problem Relation Name Age of Onset Heart attack Mother 61.00 Heart disease Father Other ([id number]) Brother accident Coronary artery disease Father Diabetes Father Medications Prior to Admission: No current facility-administered medications on file prior to encounter. Current Outpatient Medications on File Prior to Encounter Medication Sig Dispense Refill acetaminophen (Tylenol) 325 MG tablet Take 650 mg by mouth every 6 hours as needed. Advair Diskus 250-50 MCG/ACT aerosol powder albuterol (2.5 MG/3ML) 0.083% nebulizer solution Inhale 2.5 mg. albuterol 108 (90 Base) MCG/ACT inhaler Inhale 2 puffs every 6 hours as needed. aspirin 81 MG chewable tablet Chew 81 mg in the morning. atorvastatin (Lipitor) 80 MG tablet Take 80 mg by mouth in the morning. carvedilol (Coreg) 6.25 MG tablet Take 1 tablet (6.25 mg) by mouth in the morning and 1 tablet (6.25 mg) in the evening. Take with meals. 180 tablet 3 cholestyramine (Questran) 4 g packet Take 1 packet by mouth in the morning and 1 packet at noon and 1 packet in the evening. Take with meals. cilostazol (Pletal) 50 MG tablet Take 50 mg by mouth 2 times daily. clindamycin (Cleocin) 150 MG capsule Take 150 mg by mouth in the morning and 150 mg at noon and 150 mg in the evening and 150 mg before bedtime. dicyclomine (Bentyl) 10 MG capsule Take 10 mg by mouth 3 times daily. empagliflozin (Jardiance) 25 MG Take 25 mg by mouth daily. ergocalciferol (Vitamin D-2) 1.25 MG (43856 UT) capsule Take 1.25 mg by mouth 1 (one) time per week. Every Monday ezetimibe (Zetia) 10 MG tablet Take 10 mg by mouth Nightly. famotidine (Pepcid) 20 MG tablet Take 20 mg by mouth in the morning. finasteride (Proscar) 5 MG tablet Take 5 mg by mouth in the morning. fluticasone (Flonase) 50 MCG/ACT nasal spray Administer 1 spray into each nostril daily. Shake gently. Before first use, prime pump. After use, clean tip and replace cap. insulin glargine (Lantus) 100 UNIT/ML injection Inject 48 Units under the skin in the morning. Insulin Lispro (Humalog) 100 UNIT/ML solution injection Inject 16 Units under the skin in the morning and 16 Units at noon and 16 Units in the evening. nabumetone (Relafen) 500 MG tablet Take 500 mg by mouth 2 times daily. nitroglycerin (Nitrostat) 0.[address] 0.4 mg under the tongue every 5 minutes as needed for chest pain. nystatin (Mycostatin) cream pancrelipase, Wam-Kagx-Dscw, (Creon) [id number] units capsule Take by mouth 3 times daily (with meals). pregabalin (Lyrica) 150 MG capsule Take 150 mg by mouth 2 times daily. tamsulosin (Flomax) 0.4 MG 24 hr capsule Take 0.4 mg by mouth in the morning and 0.4 mg in the evening. tiotropium (Spiriva) [address] 1 capsule into inhaler and inhale in the morning. Allergies: Allergies Allergen Reactions Penicillins Other reaction(s): Other (See Comments), Unknown unknown Tetracyclines & Related Other reaction(s): Other (See Comments), Unknown unknown REVIEW OF SYSTEMS: As per HPI Vitals: BP 142/65 (BP Location: Left arm, Patient Position: Lying) Pulse 59 Temp 36 C (96.8 F) (Temporal) Resp 18 Wt 275 lb (125 kg) SpO2 95% BMI 36.28 kg/m BMI Classification: Pulse Ox: SpO2 Av.5 % Min: 92 % Max: 95 % Supplemental O2: PHYSICAL EXAM: Physical Exam HEENT: PERRLA, EOMI Neck: supple, nontender Chest: BLAE, clear CVS: S1+, S2+, no m/r/g Abdomen: soft, nontender, BS+ PROBLEM MANAGER: Awake and alert, motor and sensory grossly intact Ext: pulse 2+ NIH Stroke Scale: 0 DATA: CBC: Recent Labs 11/29/232035 WBC 7.0 RBC 3.84* HGB 11.7* HCT 36.9* MCV 96.1 RDW 15.6* PLT 219 BMP: Recent Labs 11/29/232035 NA 141 K 4.1 CL 115* CO2 21* BUN 30* CREATININE 1.13 GLUCOSE 93 CALCIUM 9.2 ANIONGAP 5 LIVER PROFILE: Recent Labs 11/29/232035 AST 20 ALT 14 BILITOT 0.5 ALKPHOS 86 PROT 6.3 PT/INR: Recent Labs 11/29/232035 PROTIME 10.9 INR 1.0 CARDIAC ENZYMES: Recent Labs 11/29/232035 TROPONINI <0.012 Procalcitonin: No results found for: "PROCAL" Urine Culture: No results found for this or any previous visit. COVID-19 PCR: No results for input(s): "COVID19" in the last 72 hours. I reviewed: [x] laboratory results [x] radiographic results At the time of today's encounter. Pt was advised of the results. Data: (LOW: 2x CAT1 or independent historian MOD: 3x CAT1 or 1x CAT3 EXTENSIVE: 3x CAT1 and 1x CAT3) Assessment Discussed management with the ED provider and agree with hospitalization. Acute, acute on chronic, unstable/uncontrolled chronic problems/diagnoses: # s/p mechanical fall # dizziness - concern for cva - ct head without acute findings - tele - mri brain - neurology consult - pt/ot evaluation Stable chronic problems affecting care, new non-acute diagnoses: Past Medical History: Diagnosis Date Acute kidney injury (HCC) 09/11/2015 CAD in [place] artery 08/08/2017 COPD (chronic obstructive pulmonary disease) (HCC) Developmental disorder Diabetes mellitus (HCC) Esophageal reflux Gastritis see EGD on 03/29/2016 GERD (gastroesophageal reflux disease) Hyperlipidemia IBS (irritable bowel syndrome) Mixed Obesity Osteoarthritis Pain management Plantar fasciitis, bilateral Unspecified sleep apnea Urinary retention Plan As a result of the above findings & factors, the following mgmt was pursued: - am labs, replace lytes prn - PT/OT/CM/SW - delirium precautions: increase activity - DVT prophylaxis: enoxaparin and encourage ambulation Advance Directive: Full Code Anticipated Discharge - Date - tbd - Location - tbd - Pending the following - clinical course Total time spent (which include face to face and non face to face encounters) : 56 minutes. Extended Emergency Contact Information Primary Emergency Contact: Sreekanth Reyes Relation: Sibling [employer] James Reyes : 1955 Primary Care Physician: No primary care provider on file. The patient and/or family/surrogate voluntarily agreed to participate in ACP services. Patient s cognitive capacity: yes Code Status: [x] [FULL CODE - Continue all advanced life support: CPR,intubation,invasive procedures] [_] [DNR-CCA - DO NOT do CPR, intubation] [_] [DNR-FINGERPRINT EXPERT - Comfort care only] [_] DNR form [was/was not] signed Summary of discussion: The patient health care POA/ surrogate is the following: none [Condition that instigated the ACP on this DOS, relevant PMH, functional status, goals of care, and whom this was discussed with including names and relationship to the patient, and any relevant advance care documentation discussion] I answered all the patient/family questions that I could within the range and scope of the current medical situation. We discussed the medical conditions, risks, benefits, outcomes, and goals of care at this time for the patient's medical issues at hand in the face of the patient's chronic issues and current presentation. Total time spent: 2 minutes were spent discussing the patient's resuscitation status, advance care planning, and end of life care, with patient and/or family/surrogate. Lorenza Bowles MD Division of Hospitalist Medicine [facility] documented in this encounter [facility] 11-29-2023 Emergency department Note Spoke to sister in [place], and advised that patient is being admitted to [facility] and EMS is on scene for transport Amelia Lopez RN 11/29/23 2894 [facility] 11-29-2023 Emergency department Note Spoke to sister in [place], and advised that patient is being admitted to [facility] and EMS is on scene for transport Amelia Lopez RN 11/29/23 3784 Report to [facility] ambulance crew. Chart to crew for [facility]. Minda Quesada RN 11/29/23 4387 Report called to 4W RN, Amelia @ [facility] Minda Quesada RN 11/29/232311 Pt's sister in law, Niru, called to ask about pt. Ok to speak to her per pt. Advised about the fall earlier and now having dizziness. She will call back later to check about the results. 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 Dr. Ruff notified Minda Quesada RN 11/29/231946 Pt assisted to stand. wants pt to ambulate with his rollator. Upon standing, pt incontinent of urine. Pt changed out of jeans and underwear. Pt stated to throw his wet clothing away. Pt given pajama bottoms. Pt able to inspector penetrant room and feels comfortable going home. Minda Quesada RN 11/29/231940 Pt assisted using urinal, but unable to urinate at this time. Pt asking for vaccuum mattress to be removed. Dr. Arreola assisted in rolling pt and removing mattress. Pt complains of chronic pain in legs and back, but no new pain. Minda Quesada RN 11/29/23 170 Pt'd continous glucose monitor is going off. Reading 69. Finger stick glucose 84 on arrival. Minda Quesada RN 11/29/23 1611 EMERGENCY DEPARTMENT ENCOUNTER Pt Name: James Reyes Birthdate 1955 Date of evaluation: 11/29/2023 ED Provider: Gulshan Arreola DO CHIEF COMPLAINT Chief Complaint Patient presents with Fall Head Laceration HISTORY OF PRESENT ILLNESS (Location/Symptom, Timing/Onset, Context/Setting, Quality, Duration, Modifying Factors, Severity) Note limiting factors. I wore appropriate PPE for the entirety of this encounter. HPI James Reyes is a 68 y.o. who presents to the emergency department via EMS status post mechanical fall. Patient resides at SNF was using rollator to go to the store and rollator caught on uneven sidewalk and the grass causing him to fall and hit his head. He denies any LOC nausea vomiting blood thinners chest pain or other injuries. Patient has chronic pain in back and legs at baseline. Patient has abrasions unsure of last Tdap. Patient has a history of COPD without home oxygen requirements. He denies any neck pain or injury c-collar in place on arrival by EMS. Nursing Notes were reviewed. Limitations to history: Outside historians: REVIEW OF SYSTEMS Review of Systems Pertinent positives and negatives as per HPI PAST MEDICAL HISTORY Past Medical History: Diagnosis Date Acute kidney injury (HCC) 09/11/2015 CAD in [place] artery 08/08/2017 COPD (chronic obstructive pulmonary disease) (HCC) Developmental disorder Diabetes mellitus (HCC) Esophageal reflux Gastritis see EGD on 03/29/2016 GERD (gastroesophageal reflux disease) Hyperlipidemia IBS (irritable bowel syndrome) Mixed Obesity Osteoarthritis Pain management Plantar fasciitis, bilateral Unspecified sleep apnea Urinary retention SURGICAL HISTORY Past Surgical History: Procedure Laterality Date CHOLECYSTECTOMY 03/29/20162010 COLONOSCOPY 05/23/2017 COLONOSCOPY 03/29/2016, repeat in 10 years, Dr. Ness, normal except internal hemorrhoid COLONOSCOPY N/A 07/18/2022 Performed by David Chen MD at [facility] OR CORONARY ARTERY BYPASS GRAFT FOOT SURGERY Left 2015 HEMORRHOID SURGERY 1998 INNER EAR SURGERY tube placement in ears LAYERED WOUND CLOSURE N/A 10/16/2017 sternal wound debridment and closure with wound vac OTHER SURGICAL HISTORY 10/24/2017 I&D sternal wound with flap OTHER SURGICAL HISTORY punching bag removal THYROID SURGERY nodule removal 2010 TONSILLECTOMY (HISTORICAL) UPPER GASTROINTESTINAL ENDOSCOPY 04/01/2016 gastritis, duodentitis WISDOM TOOTH EXTRACTION CURRENT MEDICATIONS Current Discharge Medication List CONTINUE these medications which have NOT CHANGED Details acetaminophen (Tylenol) 325 MG tablet Take 1,000 mg by mouth 3 times daily. Advair Diskus 250-50 MCG/ACT aerosol powder albuterol (2.5 MG/3ML) 0.083% nebulizer solution Inhale 2.5 mg. albuterol 108 (90 Base) MCG/ACT inhaler Inhale 2 puffs every 6 hours as needed. aspirin 81 MG chewable tablet Chew 81 mg daily. atorvastatin (Lipitor) 80 MG tablet Take 80 mg by mouth in the morning. carvedilol (Coreg) 6.25 MG tablet Take 1 tablet (6.25 mg) by mouth in the morning and 1 tablet (6.25 mg) in the evening. Take with meals. Qty: 180 tablet, Refills: 3 cholestyramine (Questran) 4 g packet Take 1 packet by mouth in the morning and 1 packet at noon and 1 packet in the evening. Take with meals. cilostazol (Pletal) 50 MG tablet Take 50 mg by mouth 2 times daily. clindamycin (Cleocin) 150 MG capsule Take 150 mg by mouth in the morning and 150 mg at noon and 150 mg in the evening and 150 mg before bedtime. dicyclomine (Bentyl) 10 MG capsule Take 10 mg by mouth 3 times daily. empagliflozin (Jardiance) 25 MG Take 25 mg by mouth daily. ergocalciferol (Vitamin D-2) 1.25 MG (90910 UT) capsule Take 1.25 mg by mouth 1 (one) time per week. Every Monday ezetimibe (Zetia) 10 MG tablet Take 10 mg by mouth Nightly. famotidine (Pepcid) 20 MG tablet Take 20 mg by mouth in the morning. finasteride (Proscar) 5 MG tablet Take 5 mg by mouth in the morning. fluticasone (Flonase) 50 MCG/ACT nasal spray Administer 1 spray into each nostril daily. Shake gently. Before first use, prime pump. After use, clean tip and replace cap. ibuprofen 600 MG tablet Take 600 mg by mouth every 6 hours as needed for mild pain (1-3). insulin glargine (Lantus) 100 UNIT/ML injection Inject 48 Units under the skin in the morning. Insulin Lispro (Humalog) 100 UNIT/ML solution injection Inject 16 Units under the skin in the morning and 16 Units at noon and 16 Units in the evening. Menthol, Topical Analgesic, (Biofreeze Cool The Pain) 4 % gel Apply topically every 12 hours as needed (lower back). nabumetone (Relafen) 500 MG tablet Take 750 mg by mouth 2 times daily. nitroglycerin (Nitrostat) 0.[address] 0.4 mg under the tongue every 5 minutes as needed for chest pain. nystatin (Mycostatin) cream pancrelipase, Orl-Mqwy-Jfrs, (Creon) [id number] units capsule Take by mouth 3 times daily (with meals). pregabalin (Lyrica) 150 MG capsule Take 150 mg by mouth 2 times daily. tamsulosin (Flomax) 0.4 MG 24 hr capsule Take 0.4 mg by mouth daily. tiotropium (Spiriva) [address] 1 capsule into inhaler and inhale in the morning. 2 puffs. ALLERGIES Penicillins and Tetracyclines & related FAMILY HISTORY Family History Problem Relation Name Age of Onset Heart attack Mother 61.00 Heart disease Father Other ([id number]) Brother accident Coronary artery disease Father Diabetes Father SOCIAL HISTORY Social History Socioeconomic History Marital status: Single Tobacco Use Smoking status: Every Day Current packs/day: 1.00 Average packs/day: 1 pack/day for 50.6 years (50.6 ttl pk-yrs) Types: Cigarettes Start date: 04/28/1973 Smokeless tobacco: Never Vaping Use Vaping status: Never Used Substance and Sexual Activity Alcohol use: No Alcohol/week: 0.0 standard drinks of alcohol Drug use: No Social Determinants of Health Transportation Needs: No Transportation Needs (11/30/2023) PRAPARE - Transportation Lack of Transportation (Medical): No Lack of Transportation (Non-Medical): No Intimate Partner Violence: Not At Risk (11/30/2023) Humiliation, Afraid, Rape, and Kick questionnaire Fear of Current or Ex-Partner: No Emotionally Abused: No Physically Abused: No Sexually Abused: No Housing Stability: Low Risk (11/30/2023) Housing Stability Vital Sign Unable to Pay for Housing in the Last Year: No Number of Times Moved in the Last Year: 0 Homeless in the Last Year: No PHYSICAL EXAM ED Triage Vitals [11/29/23 1536] Temp Heart Rate Resp BP 36.2 C (97.2 F) 65 14 119/65 SpO2 Temp Source Heart Rate Source Patient Position (!) 92 % Temporal -- Lying BP Location FiO2 (%) Right arm -- 94% on room air Physical Exam Vitals and nursing note reviewed. Constitutional: General: He is awake. He is not in acute distress. Appearance: He is not toxic-appearing. HENT: Head: Normocephalic. Abrasion and contusion present. No raccoon eyes or Frost's sign. Comments: Occipital contusion with overlying abrasion no lacerations Mouth/Throat: Pharynx: Oropharynx is clear. Eyes: General: Vision grossly intact. Extraocular Movements: Extraocular movements intact. Conjunctiva/sclera: Conjunctivae normal. Pupils: Pupils are equal, round, and reactive to light. Cardiovascular: Rate and Rhythm: Normal rate and regular rhythm. Pulses: Normal pulses. Pulmonary: Effort: Pulmonary effort is normal. Breath sounds: Normal breath sounds. Chest: Chest wall: No tenderness. Abdominal: Palpations: Abdomen is soft. Tenderness: There is no abdominal tenderness. Musculoskeletal: General: Normal range of motion. Cervical back: No spinous process tenderness. Comments: No midline spinous process tenderness step-offs or deformities no crepitus or significant bony tenderness head to toe. Chronic pain at baseline. Skin: General: Skin is warm and dry. Neurological: General: No focal deficit present. Mental Status: He is alert and oriented to person, place, and time. Psychiatric: Mood and Affect: Mood normal. Behavior: Behavior normal. DIAGNOSTIC RESULTS RADIOLOGY (Per Emergency Physician): Interpretation per the Radiologist below, if available at the time of this note: MR brain w and wo contrast Final Result 1. Diminished cerebral volume and evidence of chronic white matter small vessel ischemic change without acute intracranial abnormality. No pathological post contrast enhancement. 2. Paranasal sinus disease. EXAMINATION: MR arteriography of the head. EXAM DATE & TIME: 12/01/2023 12:30 PM EDT INDICATION: Dizziness, persistent/recurrent, cardiac or vascular cause suspected ADDITIONAL INFORMATION: 68-year-old male with dizziness presents for evaluation COMPARISON: None LIMITATIONS: None TECHNIQUE: Three-dimensional gradient echo intracranial MRA sequence was performed. Maximum intensity projection images were created in various orientations. FINDINGS: Distal internal carotid arteries: Unremarkable. Anterior cerebral arteries: Unremarkable. Middle cerebral arteries: Unremarkable. Distal vertebral arteries: Unremarkable. Basilar artery: Unremarkable. Posterior cerebral arteries: There is origin of the right SATURATOR TENDER. Otherwise, unremarkable. Anterior communicating artery: Unremarkable. Posterior communicating arteries: Robustness of the right posterior communicating artery is present, in keeping with origin of the right SATURATOR TENDER. Otherwise, unremarkable. Aneurysm or vascular malformation: None identified. IMPRESSION: No acute intracranial arterial abnormality identified. EXAMINATION: MR arteriography of the neck with and without contrast. EXAM DATE & TIME: 12/01/2023 12:30 PM EDT INDICATION: Dizziness, persistent/recurrent, cardiac or vascular cause suspected ADDITIONAL INFORMATION: 68-year-old male with dizziness presents for evaluation COMPARISON: None LIMITATIONS: None TECHNIQUE: Three-dimensional gradient echo non-contrast sequence along with dynamic contrast enhanced MRA sequences were performed through the extracranial carotid arterial circulation before and following administration of 12 mL of Gadavist gadolinium-based contrast. Maximum intensity projection images were created in various orientations. Measurement of carotid stenosis is a ratio based on conventional angiographic data from the NASCET trials with the smallest caliber of the internal carotid as the numerator and normal post-stenotic internal carotid caliber as denominator. FINDINGS: Aortic arch and great vessel origins: Unremarkable. Right common and external carotid: Unremarkable. Right internal carotid: No significant stenosis identified with less than 30 percent luminal narrowing. Left common and external carotid: Unremarkable. Left internal carotid: No significant stenosis identified with less than 30 percent luminal narrowing. Vertebral arteries: Unremarkable. IMPRESSION: 1. No hemodynamically significant internal carotid stenosis. 2. Patent vertebral arteries. Report Dictated on Electronically Signed By: Amadeo Luciano MD Electronically Signed Date/Time: 12/01/2023 1:27 PM EDT MR head angio wo IV contrast Final Result 1. Diminished cerebral volume and evidence of chronic white matter small vessel ischemic change without acute intracranial abnormality. No pathological post contrast enhancement. 2. Paranasal sinus disease. EXAMINATION: MR arteriography of the head. EXAM DATE & TIME: 12/01/2023 12:30 PM EDT INDICATION: Dizziness, persistent/recurrent, cardiac or vascular cause suspected ADDITIONAL INFORMATION: 68-year-old male with dizziness presents for evaluation COMPARISON: None LIMITATIONS: None TECHNIQUE: Three-dimensional gradient echo intracranial MRA sequence was performed. Maximum intensity projection images were created in various orientations. FINDINGS: Distal internal carotid arteries: Unremarkable. Anterior cerebral arteries: Unremarkable. Middle cerebral arteries: Unremarkable. Distal vertebral arteries: Unremarkable. Basilar artery: Unremarkable. Posterior cerebral arteries: There is origin of the right SATURATOR TENDER. Otherwise, unremarkable. Anterior communicating artery: Unremarkable. Posterior communicating arteries: Robustness of the right posterior communicating artery is present, in keeping with origin of the right SATURATOR TENDER. Otherwise, unremarkable. Aneurysm or vascular malformation: None identified. IMPRESSION: No acute intracranial arterial abnormality identified. EXAMINATION: MR arteriography of the neck with and without contrast. EXAM DATE & TIME: 12/01/2023 12:30 PM EDT INDICATION: Dizziness, persistent/recurrent, cardiac or vascular cause suspected ADDITIONAL INFORMATION: 68-year-old male with dizziness presents for evaluation COMPARISON: None LIMITATIONS: None TECHNIQUE: Three-dimensional gradient echo non-contrast sequence along with dynamic contrast enhanced MRA sequences were performed through the extracranial carotid arterial circulation before and following administration of 12 mL of Gadavist gadolinium-based contrast. Maximum intensity projection images were created in various orientations. Measurement of carotid stenosis is a ratio based on conventional angiographic data from the NASCET trials with the smallest caliber of the internal carotid as the numerator and normal post-stenotic internal carotid caliber as denominator. FINDINGS: Aortic arch and great vessel origins: Unremarkable. Right common and external carotid: Unremarkable. Right internal carotid: No significant stenosis identified with less than 30 percent luminal narrowing. Left common and external carotid: Unremarkable. Left internal carotid: No significant stenosis identified with less than 30 percent luminal narrowing. Vertebral arteries: Unremarkable. IMPRESSION: 1. No hemodynamically significant internal carotid stenosis. 2. Patent vertebral arteries. Report Dictated on Electronically Signed By: Amadeo Luciano MD Electronically Signed Date/Time: 12/01/2023 1:27 PM EDT MR neck angio w and wo IV contrast Final Result 1. Diminished cerebral volume and evidence of chronic white matter small vessel ischemic change without acute intracranial abnormality. No pathological post contrast enhancement. 2. Paranasal sinus disease. EXAMINATION: MR arteriography of the head. EXAM DATE & TIME: 12/01/2023 12:30 PM EDT INDICATION: Dizziness, persistent/recurrent, cardiac or vascular cause suspected ADDITIONAL INFORMATION: 68-year-old male with dizziness presents for evaluation COMPARISON: None LIMITATIONS: None TECHNIQUE: Three-dimensional gradient echo intracranial MRA sequence was performed. Maximum intensity projection images were created in various orientations. FINDINGS: Distal internal carotid arteries: Unremarkable. Anterior cerebral arteries: Unremarkable. Middle cerebral arteries: Unremarkable. Distal vertebral arteries: Unremarkable. Basilar artery: Unremarkable. Posterior cerebral arteries: There is origin of the right SATURATOR TENDER. Otherwise, unremarkable. Anterior communicating artery: Unremarkable. Posterior communicating arteries: Robustness of the right posterior communicating artery is present, in keeping with origin of the right SATURATOR TENDER. Otherwise, unremarkable. Aneurysm or vascular malformation: None identified. IMPRESSION: No acute intracranial arterial abnormality identified. EXAMINATION: MR arteriography of the neck with and without contrast. EXAM DATE & TIME: 12/01/2023 12:30 PM EDT INDICATION: Dizziness, persistent/recurrent, cardiac or vascular cause suspected ADDITIONAL INFORMATION: 68-year-old male with dizziness presents for evaluation COMPARISON: None LIMITATIONS: None TECHNIQUE: Three-dimensional gradient echo non-contrast sequence along with dynamic contrast enhanced MRA sequences were performed through the extracranial carotid arterial circulation before and following administration of 12 mL of Gadavist gadolinium-based contrast. Maximum intensity projection images were created in various orientations. Measurement of carotid stenosis is a ratio based on conventional angiographic data from the NASCET trials with the smallest caliber of the internal carotid as the numerator and normal post-stenotic internal carotid caliber as denominator. FINDINGS: Aortic arch and great vessel origins: Unremarkable. Right common and external carotid: Unremarkable. Right internal carotid: No significant stenosis identified with less than 30 percent luminal narrowing. Left common and external carotid: Unremarkable. Left internal carotid: No significant stenosis identified with less than 30 percent luminal narrowing. Vertebral arteries: Unremarkable. IMPRESSION: 1. No hemodynamically significant internal carotid stenosis. 2. Patent vertebral arteries. Report Dictated on Electronically Signed By: Amadeo Luciano MD Electronically Signed Date/Time: 12/01/2023 1:27 PM EDT XR chest 1 view Final Result Coarsening of the interstitial lung markings is likely chronic. No focal consolidation is identified. No metallic foreign body is identified within the chest. Report Dictated on Electronically Signed By: Melvin Scott MD Electronically Signed Date/Time: 11/30/2023 3:00 PM EDT XR abdomen 1 view Final Result Nonobstructive bowel gas pattern. No metallic foreign body is identified within the visualized portion of the abdomen and pelvis. Report Dictated on Electronically Signed By: Melvin Scott MD Electronically Signed Date/Time: 11/30/2023 2:[address] cervical spine wo IV contrast Final Result 1. No acute intracranial findings. Chronic ischemic and atrophic changes. 2. No acute compression deformity or apparent fracture in the cervical spine. Degenerative spondylosis. Report Dictated on Electronically Signed By: Primo Millan MD Electronically Signed Date/Time: 11/29/2023 6:[address] head wo IV contrast Final Result 1. No acute intracranial findings. Chronic ischemic and atrophic changes. 2. No acute compression deformity or apparent fracture in the cervical spine. Degenerative spondylosis. Report Dictated on Electronically Signed By: Primo Millan MD Electronically Signed Date/Time: 11/29/2023 6:28 PM EDT LABS: Labs Reviewed CBC WITH AUTO DIFFERENTIAL - Abnormal Result Value Auto WBC 7.0 RBC 3.84 (*) Hemoglobin 11.7 (*) Hematocrit 36.9 (*) MCV 96.1 MCH 30.5 MCHC 31.7 RDW 15.6 (*) Platelets 219 MPV 10.3 nRBC 0.0 Neutrophils Relative 74.4 Lymphocytes Relative 13.5 (*) Monocytes Relative 9.5 Eosinophils Relative 2.0 Basophils Relative 0.3 Immature Grans % 0.3 Neutrophils Absolute 5.2 Lymphocytes Absolute 0.9 (*) Monocytes Absolute 0.7 Eosinophils Absolute 0.1 Basophils Absolute 0.0 Immature Grans Absolute 0.0 COMPREHENSIVE METABOLIC PANEL - Abnormal SODIUM 141 POTASSIUM 4.1 CHLORIDE 115 (*) CARBON DIOXIDE 21 (*) ANION GAP 5 UREA NITROGEN 30 (*) CREATININE 1.13 GLUCOSE 93 CALCIUM 9.2 AST (SGOT) 20 ALT 14 ALKALINE PHOSPHATASE 86 ALBUMIN 3.8 BILIRUBIN, TOTAL 0.5 TOTAL PROTEIN 6.3 eGFR 71.2 HEMOGLOBIN A1C - Abnormal HEMOGLOBIN A1C 8.5 (*) ESTIMATED AVERAGE GLUCOSE 197 LIPID PANEL - Abnormal TRIGLYCERIDE 166 (*) CHOLESTEROL 108 LOW DENSITY LIPOPROTEIN 33 HDL CHOLESTEROL 42 CHOL/HDL 3 CBC (HEMOGRAM) - Abnormal Auto WBC 5.1 RBC 3.56 (*) Hemoglobin 10.9 (*) Hematocrit 34.5 (*) MCV 96.9 MCH 30.6 MCHC 31.6 RDW 15.6 (*) Platelets 191 MPV 10.4 COMPREHENSIVE METABOLIC PANEL - Abnormal SODIUM 138 POTASSIUM 3.9 CHLORIDE 115 (*) CARBON DIOXIDE 19 (*) ANION GAP 5 UREA NITROGEN 27 (*) CREATININE 1.05 GLUCOSE 121 (*) CALCIUM 8.8 AST (SGOT) 19 ALT 13 ALKALINE PHOSPHATASE 81 ALBUMIN 3.2 (*) BILIRUBIN, TOTAL 0.5 TOTAL PROTEIN 5.7 (*) eGFR 77.8 VITAMIN B12 - Abnormal VITAMIN B12 167 (*) VITAMIN D DEFICIENCY SCREENING (VIT D 25) - Abnormal VIT D 25-OH, TOTAL 24 (*) Narrative: Therapy is based on measurement of Total 25-OHD with the following classification levels: Less than 20 ng/mL: Indicative of Vit D deficiency 20-30 ng/mL: Suggests Vit D insufficiency Optimal: Greater than or equal to 30 ng/mL Test performed by [employer] Competitive Immunoassay, measuring Total Vitamin D, not individual fractions. CBC WITH AUTO DIFFERENTIAL - Abnormal Auto WBC 4.3 RBC 3.48 (*) Hemoglobin 10.4 (*) Hematocrit 33.3 (*) MCV 95.7 MCH 29.9 MCHC 31.2 RDW 15.7 (*) Platelets 173 MPV 10.5 nRBC 0.0 Neutrophils Relative 61.1 Lymphocytes Relative 21.8 Monocytes Relative 11.3 Eosinophils Relative 5.1 Basophils Relative 0.5 Immature Grans % 0.2 Neutrophils Absolute 2.6 Lymphocytes Absolute 0.9 (*) Monocytes Absolute 0.5 Eosinophils Absolute 0.2 Basophils Absolute 0.0 Immature Grans Absolute 0.0 COMPREHENSIVE METABOLIC PANEL - Abnormal SODIUM 138 POTASSIUM 4.1 CHLORIDE 114 (*) CARBON DIOXIDE 19 (*) ANION GAP 5 UREA NITROGEN 25 (*) CREATININE 1.08 GLUCOSE 137 (*) CALCIUM 8.6 AST (SGOT) 20 ALT 15 ALKALINE PHOSPHATASE 80 ALBUMIN 3.2 (*) BILIRUBIN, TOTAL 0.5 TOTAL PROTEIN 5.6 (*) eGFR 75.2 CBC WITH AUTO DIFFERENTIAL - Abnormal Auto WBC 4.6 RBC 3.47 (*) Hemoglobin 10.5 (*) Hematocrit 33.7 (*) MCV 97.1 MCH 30.3 MCHC 31.2 RDW 15.7 (*) Platelets 171 MPV 10.7 nRBC 0.0 Neutrophils Relative 65.1 Lymphocytes Relative 18.0 Monocytes Relative 11.4 Eosinophils Relative 4.6 Basophils Relative 0.7 Immature Grans % 0.2 Neutrophils Absolute 3.0 Lymphocytes Absolute 0.8 (*) Monocytes Absolute 0.5 Eosinophils Absolute 0.2 Basophils Absolute 0.0 Immature Grans Absolute 0.0 COMPREHENSIVE METABOLIC PANEL - Abnormal SODIUM 137 POTASSIUM 4.1 CHLORIDE 113 (*) CARBON DIOXIDE 18 (*) ANION GAP 5 UREA NITROGEN 23 (*) CREATININE 1.00 GLUCOSE 216 (*) CALCIUM 8.5 AST (SGOT) 16 ALT 14 ALKALINE PHOSPHATASE 82 ALBUMIN 3.1 (*) BILIRUBIN, TOTAL 0.3 TOTAL PROTEIN 5.5 (*) eGFR 82.5 CBC WITH AUTO DIFFERENTIAL - Abnormal Auto WBC 4.2 RBC 3.36 (*) Hemoglobin 10.2 (*) Hematocrit 32.5 (*) MCV 96.7 MCH 30.4 MCHC 31.4 RDW 15.4 (*) Platelets 165 MPV 10.5 nRBC 0.0 Neutrophils Relative 63.0 Lymphocytes Relative 20.9 Monocytes Relative 10.9 Eosinophils Relative 4.5 Basophils Relative 0.5 Immature Grans % 0.2 Neutrophils Absolute 2.7 Lymphocytes Absolute 0.9 (*) Monocytes Absolute 0.5 Eosinophils Absolute 0.2 Basophils Absolute 0.0 Immature Grans Absolute 0.0 COMPREHENSIVE METABOLIC PANEL - Abnormal SODIUM 139 POTASSIUM 3.9 CHLORIDE 114 (*) CARBON DIOXIDE 20 (*) ANION GAP 5 UREA NITROGEN 19 CREATININE 0.93 GLUCOSE 134 (*) CALCIUM 8.4 AST (SGOT) 13 (*) ALT 12 ALKALINE PHOSPHATASE 71 ALBUMIN 2.9 (*) BILIRUBIN, TOTAL 0.3 TOTAL PROTEIN 5.3 (*) eGFR 90.0 POCT GLUCOSE METER UNSOLICITED RESULTS - Abnormal Glucose 101 (*) Narrative: Performed by: [facility], [address] [place] [address] CLIA ID: [id number] POCT GLUCOSE METER UNSOLICITED RESULTS - Abnormal Glucose 139 (*) Narrative: Performed by: [facility], [address] [place] [address], [facility] [address] CLIA ID: [id number] POCT GLUCOSE METER UNSOLICITED RESULTS - Abnormal Glucose 124 (*) Narrative: Performed by: [facility], [address] [place] [address], [facility] [address] CLIA ID: [id number] POCT GLUCOSE METER UNSOLICITED RESULTS - Abnormal Glucose 139 (*) Narrative: Performed by: [facility], [address] [place] [address], [facility] [address] CLIA ID: [id number] POCT GLUCOSE METER UNSOLICITED RESULTS - Abnormal Glucose 200 (*) Narrative: Performed by: [facility], [address] [place] [address], [facility] [address] CLIA ID: [id number] POCT GLUCOSE METER UNSOLICITED RESULTS - Abnormal Glucose 124 (*) Narrative: Performed by: [facility], [address] [place] [address], [facility] [address] CLIA ID: [id number] POCT GLUCOSE METER UNSOLICITED RESULTS - Abnormal Glucose 156 (*) Narrative: Performed by: [facility], [address] [place] [address], [facility] [address] CLIA ID: [id number] POCT GLUCOSE METER UNSOLICITED RESULTS - Abnormal Glucose 276 (*) Narrative: Performed by: [facility], [address] [place] [address], [facility] [address] CLIA ID: [id number] POCT GLUCOSE METER UNSOLICITED RESULTS - Abnormal Glucose 156 (*) Narrative: Performed by: [facility], [address] [place] [address], [facility] [address] CLIA ID: [id number] POCT GLUCOSE METER UNSOLICITED RESULTS - Abnormal Glucose 207 (*) Narrative: Performed by: [facility], [address] [place] [address], [facility] [address] CLIA ID: [id number] POCT GLUCOSE METER UNSOLICITED RESULTS - Abnormal Glucose 142 (*) Narrative: Performed by: [facility], [address] [place] [address], [facility] [address] CLIA ID: [id number] POCT GLUCOSE METER UNSOLICITED RESULTS - Abnormal Glucose 259 (*) Narrative: Performed by: [facility], [address] [place] [address] CLIA ID: [id number] POCT GLUCOSE METER UNSOLICITED RESULTS - Abnormal Glucose 119 (*) Narrative: Performed by: [facility], [address] [place] [address] CLIA ID: [id number] PROTHROMBIN TIME - Normal PROTHROMBIN TIME 10.9 INR 1.0 TROPONIN, WITH SERIAL REFLEX - Normal TROPONIN I <0.012 Narrative: Patients with high levels of Biotin oral intake (ie >5 mg/day) may have falsely decreased Troponin levels. TROPONIN, WITH SERIAL REFLEX - Normal TROPONIN I <0.012 Narrative: Patients with high levels of Biotin oral intake (ie >5 mg/day) may have falsely decreased Troponin levels. TROPONIN I - Normal TROPONIN I <0.012 Narrative: Patients with high levels of Biotin oral intake (ie >5 mg/day) may have falsely decreased Troponin levels. TROPONIN I - Normal TROPONIN I <0.012 Narrative: Patients with high levels of Biotin oral intake (ie >5 mg/day) may have falsely decreased Troponin levels. THYROID STIMULATING HORMONE - Normal THYROID STIMULATING HORMONE 1.209 FOLATE - Normal FOLATE RESULT 3.7 POCT GLUCOSE METER UNSOLICITED RESULTS - Normal Glucose 84 Narrative: Performed by: [facility], [address] [place] [address] CLIA ID: [id number] POCT GLUCOSE METER UNSOLICITED RESULTS - Normal Glucose 74 Narrative: Performed by: [facility], [address] [place] [address] CLIA ID: [id number] COMPREHENSIVE METABOLIC PANEL WITH MG REFLEX Narrative: The following orders were created for panel order Comprehensive Metabolic Panel w/ Mg Reflex. Procedure Abnormality Status --------- ------ Comprehensive metabolic ...[[id number]] Abnormal Final result Please view results for these tests on the individual orders. COMPREHENSIVE METABOLIC PANEL WITH MG REFLEX Narrative: The following orders were created for panel order Comprehensive Metabolic Panel with Mg Reflex. Procedure Abnormality Status --------- ------ Comprehensive metabolic ...[[id number]] Abnormal Final result Please view results for these tests on the individual orders. COMPREHENSIVE METABOLIC PANEL WITH MG REFLEX Narrative: The following orders were created for panel order Comprehensive Metabolic Panel with Mg Reflex. Procedure Abnormality Status --------- ------ Comprehensive metabolic ...[[id number]] Abnormal Final result Please view results for these tests on the individual orders. COMPREHENSIVE METABOLIC PANEL WITH MG REFLEX Narrative: The following orders were created for panel order Comprehensive Metabolic Panel with Mg Reflex. Procedure Abnormality Status --------- ------ Comprehensive metabolic ...[[id number]] Abnormal Final result Please view results for these tests on the individual orders. POCT GLUCOSE METER POCT GLUCOSE METER POCT GLUCOSE METER POCT GLUCOSE METER POCT GLUCOSE METER POCT GLUCOSE METER POCT GLUCOSE METER POCT GLUCOSE METER POCT GLUCOSE METER POCT GLUCOSE METER POCT GLUCOSE METER POCT GLUCOSE METER POCT GLUCOSE METER All other labs were within normal range or not returned as of this dictation. EMERGENCY DEPARTMENT COURSE and DIFFERENTIAL DIAGNOSIS/MDM: Vitals: Vitals: 12/02/23 2027 12/03/23 0232 12/03/23 0627 12/03/23 1022 BP: 122/63 121/63 (!) 113/49 118/51 BP Location: Right arm Right arm Left arm Patient Position: Lying Lying Lying Pulse: 51 (!) 48 50 52 Resp: 22 20 20 18 Temp: 36.2 C (97.2 F) 36 C (96.8 F) 36.3 C (97.3 F) 36.5 C (97.7 F) TempSrc: Temporal Temporal Temporal Temporal SpO2: 94% 93% 96% 95% Weight: Height: Medications mometasone-formoterol (Dulera 200) 200-5 MCG/ACT inhaler 2 puff (2 puffs Inhalation Given 12/03/23 0846) atorvastatin (Lipitor) tablet 80 mg (80 mg Oral Given 12/03/23 0845) aspirin chewable tablet 81 mg (81 mg Oral Given 12/03/23 0855) carvedilol (Coreg) tablet 6.25 mg (6.25 mg Oral Given 12/03/2345) cholestyramine (Questran) packet 4 g (4 g Oral Given 12/03/23 0844) cilostazol (Pletal) tablet 50 mg (50 mg Oral Given 8/18/24 0845) dicyclomine (Bentyl) capsule 10 mg (10 mg Oral Given 12/03/23 0844) ezetimibe (Zetia) tablet 10 mg (10 mg Oral Given 12/02/23 2307) famotidine (Pepcid) tablet 20 mg (20 mg Oral Given 12/03/23 08) finasteride (Proscar) tablet 5 mg (5 mg Oral Given 12/03/23 0845) fluticasone (Flonase) nasal spray 1 spray (1 spray Each Nostril Not Given 12/03/23 0900) insulin glargine (Lantus) injection 48 Units (48 Units SubCUTAneous Given 12/02/23 2306) Insulin Lispro (Humalog) injection 16 Units (16 Units SubCUTAneous Given 12/03/23 08) pancrelipase (Rvf-Zofz-Zqsp) (Creon) 6000-73233 units per capsule 2 capsule (2 capsules Oral Given 12/03/23 08) pregabalin (Lyrica) capsule 150 mg (150 mg Oral Given 12/03/23843) tamsulosin (Flomax) 24 hr capsule 0.4 mg (0.4 mg Oral Given 12/03/23 0518) tiotropium (Spiriva Respimat) 2.5 MCG/ACT inhaler 2 puff (2 puffs Inhalation Given 12/03/23 0846) sodium chloride 0.9 % infusion (50 mL/hr IntraVENous Rate/Dose Verify 12/03/23 0842) acetaminophen (Tylenol) tablet 650 mg (650 mg Oral Given 12/01/23 1735) Or acetaminophen (Tylenol) suppository 650 mg ( Rectal See Alternative 12/01/23 1735) ondansetron ODT (Zofran-ODT) disintegrating tablet 4 mg (has no administration in time range) Or ondansetron (Zofran) injection 4 mg (has no administration in time range) polyethylene glycol (PEG) 3350 (Miralax) packet 17 g (17 g Oral Given 12/03/23 0843) bisacodyl (Dulcolax) suppository 10 mg (has no administration in time range) labetalol (Normodyne,Trandate) injection 10 mg (has no administration in time range) enoxaparin (Lovenox) syringe 40 mg (40 mg SubCUTAneous Given 12/03/23 0845) glucose oral gel 15 g (has no administration in time range) dextrose 50 % solution 12.5 g (has no administration in time range) glucagon (human recombinant) injection 1 mg (has no administration in time range) dextrose 5 % infusion (has no administration in time range) methyl salicylate-menthol (Bengay) 10-15 % greaseless cream ( Apply externally Given 12/03/23 0846) oxyCODONE-acetaminophen (Percocet) 5-325 MG per tablet 1 tablet (1 tablet Oral Given 12/03/23 0518) naloxone (Narcan) injection 0.4 mg (has no administration in time range) albuterol (2.5 MG/3ML) 0.083% nebulizer solution 2.5 mg (has no administration in time range) cyanocobalamin (Vitamin B-12) injection 1,000 mcg (1,000 mcg IntraMUSCular Given 12/01/23 1341) Tdap (BoostRIX) vaccine 0.5 mL (0.5 mL IntraMUSCular Given 11/29/23 1645) meclizine (Antivert) tablet 25 mg (25 mg Oral Given 11/29/23 2043) perflutren protein A microsphere (Optison) 3 mL in sodium chloride (PF) 0.9 % 10 mL IV syringe (3 mL IntraVENous Given 11/30/23 1117) gadobutrol (Gadavist) injection 12 mL (12 mL IntraVENous Given 12/01/23 1205) 68-year-old male presented to the ED for mechanical fall when rollator got caught on uneven terrain causing fall with head impact. Exam as above. Will evaluate patient for number of etiologies include but not limited to intercranial hemorrhage, fracture, ambulatory dysfunction. CT head and neck without acute abnormality. Signed out to oncoming physician with plan for ambulatory trial. Later patient endorsing lightheadedness and dizziness which is new patient admitted for further evaluation and treatment. SCREENINGS Orion Coma Scale Best Eye Response: Spontaneous Best Verbal Response: Oriented Best Motor Response: Follows commands [place] Coma Scale Score: 15 NIH Stroke Scale 1A. Level of Consciousness: Alert, Keenly Responsive 1B. Ask Month and Age: 1 Question Right 1C. Blink Eyes & Squeeze Hands: Performs Both Tasks 2. Best Gaze: Normal 3. Visual: No Visual Loss 4. Facial Palsy: Normal Symmetrical Movements 5A. Motor - Left Arm: No Drift 5B. Motor - Right Arm: No Drift 6A. Motor - Left Leg: No Drift 6B. Motor - Right Leg: Some Effort Against [place] (pt reports pain being why he is having trouble lifting leg) 7. Limb Ataxia: Absent 8. Sensory Loss: Normal 9. Best Language: No Aphasia 10. Dysarthria: Normal 11. Extinction and Inattention: No Abnormality NIH Stroke Scale: 3 PROCEDURES: Unless otherwise noted below, none Procedures CRITICAL CARE TIME FINAL IMPRESSION 1. Closed head injury, initial encounter 2. Fall, initial encounter DISPOSITION Admit 11/29/2023 10:14:05 PM PATIENT REFERRED TO: No follow-up provider specified. DISCHARGE MEDICATIONS: Current Discharge Medication List (Comment: Please note this report has been produced using speech recognition software and may contain errors related to that system including errors in grammar, punctuation, and spelling, as well as words and phrases that may be inappropriate. If there are any questions or concerns please feel free to contact the dictating provider for clarification.) Gulshan Arreola DO (electronically signed) Emergency Medicine Provider Gulshan Arreola DO 12/03/23 1132 Emergency Department Encounter Location: [facility] CARDIAC POST INTERVENTION PROGRESSIVE CARE UNIT CPI PCU 4W Patient: James Reyes : 1955 Date of evaluation: 11/29/2023 ED Provider: Sergio Ruff DO Time received sign-out: 1899 James Reyes was checked out to me by Dr. Norman. Please see his/her initial documentation for details of the patient's initial ED presentation, physical exam and completed studies. In brief, James Reyes is a 68 y.o. adult that presented to the emergency department for fall. Patient had reportedly fallen and was undergoing CT scan of the head and cervical spine for possible injuries. These were read by the previous attending who did not see any acute findings and recommended ambulation test and discharge if patient was stable on his feet. I have reviewed and interpreted all of the currently available lab results and diagnostics from this visit: Results for orders placed or performed during the hospital encounter of 11/29/23 CBC auto differential Result Value Ref Range Auto WBC 7.0 3.6 - 10.7 10*3/uL RBC 3.84 (L) 4.40 - 5.90 10*6/uL Hemoglobin 11.7 (L) 13.0 - 18.0 g/dL Hematocrit 36.9 (L) 40.0 - 52.0 % MCV 96.1 77.0 - 99.0 fL MCH 30.5 26.0 - 34.0 pg MCHC 31.7 30.5 - 36.0 % RDW 15.6 (H) 11.5 - 15.0 % Platelets 219 140 - 440 10*3/uL MPV 10.3 9.0 - 12.7 fL nRBC 0.0 0.0 - 2.0 /100 WBCs Neutrophils Relative 74.4 38.0 - 82.0 % Lymphocytes Relative 13.5 (L) 15.0 - 45.0 % Monocytes Relative 9.5 5.0 - 13.0 % Eosinophils Relative 2.0 0.0 - 6.0 % Basophils Relative 0.3 0.0 - 2.0 % Immature Grans % 0.3 0.0 - 2.0 % Neutrophils Absolute 5.2 1.8 - 7.5 10*3/uL Lymphocytes Absolute 0.9 (L) 1.0 - 4.3 10*3/uL Monocytes Absolute 0.7 0.0 - 0.9 10*3/uL Eosinophils Absolute 0.1 0.0 - 0.5 10*3/uL Basophils Absolute 0.0 0.0 - 0.2 10*3/uL Immature Grans Absolute 0.0 <0.1 10*3/uL Comprehensive metabolic panel Result Value Ref Range SODIUM 141 135 - 145 mmol/L POTASSIUM 4.1 3.5 - 5.1 mmol/L CHLORIDE 115 (H) 98 - 107 mmol/L CARBON DIOXIDE 21 (L) 22 - 30 mmol/L ANION GAP 5 3 - 13 mmol/L UREA NITROGEN 30 (H) 9 - 20 mg/dL CREATININE 1.13 0.66 - 1.25 mg/dL GLUCOSE 93 70 - 100 mg/dL CALCIUM 9.2 8.4 - 10.4 mg/dL AST (SGOT) 20 15 - 46 U/L ALT 14 0 - 49 U/L ALKALINE PHOSPHATASE 86 38 - 126 U/L ALBUMIN 3.8 3.5 - 5.0 g/dL BILIRUBIN, TOTAL 0.5 0.2 - 1.3 mg/dL TOTAL PROTEIN 6.3 6.3 - 8.2 g/dL eGFR 71.2 >60.0 mL/min/1.73m*2 Protime-INR Result Value Ref Range PROTHROMBIN TIME 10.9 9.0 - 12.0 s INR 1.0 0.9 - 1.1 Troponin, with Serial Reflex Result Value Ref Range TROPONIN I <0.012 <0.034 ng/mL Troponin, with Serial Reflex Result Value Ref Range TROPONIN I <0.012 <0.034 ng/mL POCT glucose meter Result Value Ref Range Glucose 84 70 - 100 mg/dL POCT glucose meter Result Value Ref Range Glucose 101 (H) 70 - 100 mg/dL ECG 12 lead Result Value Ref Range Heart Rate 55 bpm QRSD Interval 126 ms QT Interval 457 ms QTC Interval 439 ms P [place] 13 degrees QRS [place] -44 degrees T Wave [place] 122 degrees [place] Interval [address] cervical spine wo IV contrast Final Result 1. No acute intracranial findings. Chronic ischemic and atrophic changes. 2. No acute compression deformity or apparent fracture in the cervical spine. Degenerative spondylosis. Report Dictated on Electronically Signed By: Primo Millan MD Electronically Signed Date/Time: 11/29/2023 6:[address] head wo IV contrast Final Result 1. No acute intracranial findings. Chronic ischemic and atrophic changes. 2. No acute compression deformity or apparent fracture in the cervical spine. Degenerative spondylosis. Report Dictated on Electronically Signed By: Primo Millan MD Electronically Signed Date/Time: 11/29/2023 6:28 PM EDT MR brain wo contrast (Results Pending) Final ED Course and MDM: In brief, James Reyes is a 68 y.o. whose care was signed out to me by the outgoing provider. In brief, this 68-year-old male had fallen. Plan was to evaluate ambulation trial and possible discharge. I was notified by nursing staff that they attempted to ambulate the patient with his walker and he felt lightheaded, urinated on himself and felt unsure about going home. I went into the room to examine the patient. He appears in no acute distress. He tells me that he had been going down the street to go to the grocery store from his assisted living facility. He was sitting on his rollator walker and pushed himself backwards. He fell backwards, rolling into a ditch and injuring the back of his head. Patient states that he understands that there were no acute injuries on his imaging but when he attempted to walk, he felt dizzy and lightheaded. He felt the room spinning around him. He currently states this has resolved. He has not had this before. No history of strokelike symptoms recently but states that he was told he had a stroke in the past. I attempted to have the patient's stand and he was able to walk into the hallway, appeared stable on his feet but states that he did have some mild residual dizziness. I brought him back to the room and performed a NIH stroke scale which was found to be 0. However, patient was noted to have a bilateral nystagmus. With this I was concerned about the possibility of posterior circulation stroke, BPPV or other peripheral vertigo. I added lab work, EKG and treated the patient with a dose of meclizine. Labs are reviewed and essentially unremarkable. EKG shows sinus rhythm without acute ischemic findings. On repeat evaluation, patient reports that his dizziness has improved some but he still has a mild bilateral nystagmus. For this reason I recommended that he be admitted for neurology evaluation. Considered a stroke team but patient's NIH stroke scale of 0 would not meet stroke team criteria. He is likely not a candidate for thrombolytics as he has been in the emergency department for 4-1/2 hours at this time of my evaluation. I have higher concern that his dizziness and nystagmus is related to his fall, peripheral cause and not indicative of acute posterior circulation stroke. I did call and speak with the hospitalist at [facility], Dr. Bowles who agreed accept patient for admission. Medications mometasone-formoterol (Dulera 200) 200-5 MCG/ACT inhaler 2 puff (2 puffs Inhalation Not Given 11/30/23 0115) albuterol (2.5 MG/3ML) 0.083% nebulizer solution 2.5 mg (has no administration in time range) atorvastatin (Lipitor) tablet 80 mg (has no administration in time range) aspirin chewable tablet 81 mg (has no administration in time range) carvedilol (Coreg) tablet 6.25 mg (has no administration in time range) cholestyramine (Questran) packet 4 g (has no administration in time range) cilostazol (Pletal) tablet 50 mg (50 mg Oral Given 11/30/23199) dicyclomine (Bentyl) capsule 10 mg (has no administration in time range) ezetimibe (Zetia) tablet 10 mg (10 mg Oral Given 11/30/23199) famotidine (Pepcid) tablet 20 mg (has no administration in time range) finasteride (Proscar) tablet 5 mg (has no administration in time range) fluticasone (Flonase) nasal spray 1 spray (has no administration in time range) insulin glargine (Lantus) injection 48 Units (has no administration in time range) Insulin Lispro (Humalog) injection 16 Units (has no administration in time range) pancrelipase (Eiq-Reho-Jwpl) (Creon) 6000-80853 units per capsule 2 capsule (has no administration in time range) pregabalin (Lyrica) capsule 150 mg (150 mg Oral Given 11/30/23199) tamsulosin (Flomax) 24 hr capsule 0.4 mg (has no administration in time range) tiotropium (Spiriva Respimat) 2.5 MCG/ACT inhaler 2 puff (has no administration in time range) sodium chloride 0.9 % infusion (50 mL/hr IntraVENous New Bag 11/30/23199) acetaminophen (Tylenol) tablet 650 mg (650 mg Oral Given 11/30/23213) Or acetaminophen (Tylenol) suppository 650 mg ( Rectal See Alternative 11/30/23213) ondansetron ODT (Zofran-ODT) disintegrating tablet 4 mg (has no administration in time range) Or ondansetron (Zofran) injection 4 mg (has no administration in time range) polyethylene glycol (PEG) 3350 (Miralax) packet 17 g (has no administration in time range) bisacodyl (Dulcolax) suppository 10 mg (has no administration in time range) labetalol (Normodyne,Trandate) injection 10 mg (has no administration in time range) enoxaparin (Lovenox) syringe 40 mg (has no administration in time range) glucose oral gel 15 g (has no administration in time range) dextrose 50 % solution 12.5 g (has no administration in time range) glucagon (human recombinant) injection 1 mg (has no administration in time range) dextrose 5 % infusion (has no administration in time range) Tdap (BoostRIX) vaccine 0.5 mL (0.5 mL IntraMUSCular Given 11/29/231644) meclizine (Antivert) tablet 25 mg (25 mg Oral Given 11/29/232042) Final Impression 1. Closed head injury, initial encounter 2. Fall, initial encounter DISPOSITION Admit 11/29/2023 10:14:05 PM (Please note that portions of this note may have been completed with a voice recognition program. Efforts were made to edit the dictations but occasionally words are mis-transcribed.) Sergio Ruff DO [employer] Sergio Ruff DO 11/30/23 0433 Sergio Ruff DO 11/30/23 0435 Pt arrives via [facility] after a fall. Pt lives at [facility] living. Pt was walking with his rollator on [facility] to go get cigarettes. Pt lost his balance while walking and stumbled onto grass and fell backwards hitting his head. No loss of consciousness per bystanders. Pt has chronic pain in back and legs. Pt arrives with c collar in place. Alert and oriented x 4. Skin warm and dry. Respirations even and unlabored. Call light in reach. documented in this encounter [facility] 11-29-2023 Emergency department Note Report to [facility] ambulance crew. Chart to crew for [facility]. Minda Quesada RN 11/29/23 8813 [facility] 11-29-2023 Emergency department Note Report called to 4W RN, Amelia @ [facility] Minda Quesada RN 11/29/232311 [facility] 11-29-2023 Emergency department Note Pt's sister in law, Niru, called to ask about pt. Ok to speak to her per pt. Advised about the fall earlier and now having dizziness. She will call back later to check about the results. 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 Dr. Ruff notified Minda Quesada RN 11/29/231946 [facility] 11-29-2023 Emergency department Note Pt assisted to stand. Dr wants pt to ambulate with his rollator. Upon standing, pt incontinent of urine. Pt changed out of jeans and underwear. Pt stated to throw his wet clothing away. Pt given pajama bottoms. Pt able to inspector penetrant room and feels comfortable going home. Minda Quesada RN 11/29/231940 [facility] 11-29-2023 Hospital Discharge instructions Amelia Faria RN - 11/29/2023 7:09 PM EDT [id number] and home medications as needed for pain. Follow-up with PCP as needed. Refer to the Understanding Stroke Booklet given to you, written material provided to patient/family, addressing all signs & symptoms of a stroke, which are: sudden numbness or weakness of the face, arm or leg, especially on one side of the body sudden confusion sudden difficulty speaking or understanding sudden trouble seeing in one or both eyes sudden trouble walking,dizziness, loss of balance or coordination sudden severe headache with no known cause syncope or temporary loss of consciousness seizure Explained the need to call EMS (911) immediately if signs & symptoms occur. Discussed medications that the patient is taking, will review medications again prior to discharge, risk factors, and the need for follow-up with a physician/HAND EMBROIDERER/PA after discharge. Amelia Faria RN on 11/30/23 at 7:51 AM Discussed the patient s personal risk factors for Stroke /TIA with patient/family, and ways to reduce the risk for a recurrent stroke. Patient's personal risk factors which were identified are: [x] High blood pressure [x] High cholesterol [] Atrial fibrillation [x] Diabetes [x] Smoking/e-cigarettes/vaping [] Smokeless tobacco [x] Overweight [x] Lack of Exercise [x] Sleep apnea [x] Prior heart disease or heart attack [] Excessive alcohol use [] Use of illicit drugs [] Personal history of previous TIA or stroke [] Family history of stroke or heart disease [x] Carotid stenosis [] Heart failure [] Patent Foramen [place] [] Migraine [] Hormone replacement therapy [] Current (up to six weeks post ) [] Depression [] Sickle Cell [] Renal insufficiency - chronic [] None Refer to Understanding Stroke Booklet. Advised patient that risk for stroke/TIA can be reduced by modifying/controlling risk factors. Patient advised to take medications as prescribed, which will be detailed in the discharge instructions, and to not stop taking them without consulting a physician. In addition, pt. advised to maintain a healthy diet, exercise regularly and to not smoke. Amelia Faria RN on 11/30/23 at 7:51 AM Romario Luna RN - 12/04/2023 9:17 AM EDT Images from the original note were not included. Continuity of Care Form Patient Name: James Reyes DOB: 1955 Admit date: 11/29/2023 Discharge date: 12/05/2023 Code Status Order: Full Code Advance Directives: N Admitting Physician: Lorenza Bowles MD PCP: No primary care provider on file. Discharging Nurse: Romario Luna Discharging Hospital Unit/Room#: W9-436/W4436 A Discharging Unit Phone Number: [phone] Emergency Contact: Extended Emergency Contact Information Primary Emergency Contact: Sreekanth Reyes Relation: Sibling Past Surgical History: Past Surgical History: Procedure Laterality Date CHOLECYSTECTOMY 03/29/20162010 COLONOSCOPY 05/23/2017 COLONOSCOPY 03/29/2016, repeat in 10 years, Dr. Ness, normal except internal hemorrhoid COLONOSCOPY N/A 07/18/2022 Performed by David Chen MD at [facility] OR CORONARY ARTERY BYPASS GRAFT FOOT SURGERY Left 2014 HEMORRHOID SURGERY 1997 INNER EAR SURGERY tube placement in ears LAYERED WOUND CLOSURE N/A 10/16/2017 sternal wound debridment and closure with wound vac OTHER SURGICAL HISTORY 10/24/2017 I&D sternal wound with flap OTHER SURGICAL HISTORY punching bag removal THYROID SURGERY nodule removal 2010 TONSILLECTOMY (HISTORICAL) UPPER GASTROINTESTINAL ENDOSCOPY 04/01/2016 gastritis, duodentitis WISDOM TOOTH EXTRACTION Immunization History: Immunization History Administered Date(s) Administered Covid-19, Pfizer Bivalent Booster, (Age 12y+), Im, 30 Mcg/0e 03/01/2022 Influenza, High Dose Seasonal, Preservative Free 01/04/2017 Influenza, Unspecified 01/08/2015 Pfizer SARS-CoV-2 Vaccination 04/15/2020, 05/06/2020, 02/02/2021, 09/01/2021 Pneumococcal Conjugate, Unspecified 09/20/2013 Tdap 11/29/2023 Active Problems: Medical Problems Problem List * (Principal) Closed head injury, initial encounter IBS (irritable bowel syndrome) Overview Signed 01/27/2022 12:43 PM by Interface, Incoming Problems- [facility] Conversion Mixed Shoulder pain, left Dyslipidemia Knee pain, bilateral Knee osteoarthritis Insulin dependent diabetes mellitus MINERVA (obstructive sleep apnea) Tobacco abuse Esophagitis, reflux Morbid obesity (HCC) Type 2 diabetes, uncontrolled, with neuropathy Wound disruption, post-op, skin, initial encounter Uncontrolled type 2 diabetes mellitus with hyperglycemia, with long-term current use of insulin ([facility]) CAD in [place] artery Uncontrolled type 2 diabetes mellitus with complication, with long-term current use of insulin Pseudomonas aeruginosa infection Angina at rest ([facility]) Sternal wound dehiscence 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 Enlarged prostate with lower urinary tract symptoms (LUTS) Hypertensive heart disease Overview Signed 01/27/2022 12:43 PM by Interface, Incoming Problems- [facility] Conversion ECHO DONE [facility] 55% EF SHOWS HYPERTENSIVE HEART DISEASE COPD (chronic obstructive pulmonary disease) ([facility]) Overview Signed 01/27/2022 12:43 PM by Interface, Incoming Problems- [facility] Conversion PATIENT IS ON 2 LITER OF OXYGEN AND NOW IS SEEING DR ESTRADA WAS TESTED TERRELL AND QUALIFED HOME OXYGEN 07/17/2015 Arthritis of foot, degenerative Hiatal hernia Colitis Chest pain Anemia Colitis, collagenous Gastroesophageal reflux disease without esophagitis Isolation/Infection: No active isolations No active infections Nurse Assessment: Last Vital Signs: BP 115/56 (BP Location: Right arm, Patient Position: Lying) Pulse (!) 44 Temp 36.2 C (97.2 F) (Temporal) Resp 18 Ht 1.88 m (6' 2") Wt 127 kg (279 lb) SpO2 95% BMI 35.82 kg/m Last documented pain score (0-10 scale): Last Weight: Wt Readings from Last 1 Encounters: 11/30/23 127 kg (279 lb) Mental Status: CRUZ Patient Mental Status: oriented, alert, and able to concentrate and follow conversation IV Access: CRUZ IV Access: None Nursing Mobility/ADLs: Walking Minimal assistance Transfer Minimal assistance Bathing Minimal assistance Dressing Minimal assistance Toileting Minimal assistance Feeding Independent Chain Person Minimal assistance Med Delivery no Wound Care Documentation and Therapy: Elimination: Continence: Bowel: yes Bladder: yes Urinary Catheter: None Colostomy/Ileostomy/Ileal Conduit: None Date of Last BM: 12/02 Intake/Output Summary (Last 24 hours) at 12/04/2023 0915 Last data filed at 12/04/2023 0600 Gross per 24 hour Intake 1362 ml Output 1200 ml Net 162 ml I/O last 3 completed shifts: In: 2595 (20.5 mL/kg) [P.O.:760; I.V.:1835 (14.5 mL/kg)] Out: 3155 (24.9 mL/kg) [Urine:3155 (0.7 mL/kg/hr)] Weight: 126.6 kg Safety Concerns: history of falls (last 30 days) and at risk for falls Impairments/Disabilities: none Nutrition Therapy: Current Nutrition Therapy: Oral diet: carb control 5 carbs/meal (2000kcals/day) and low fat Routes of Feeding: oral Liquids: no restrictions Daily Fluid Restriction: no Last Modified Barium Swallow with Video (Video Swallowing Test): not done Treatments at the Time of Hospital Discharge: Respiratory Treatments: Albuterol PRN Oxygen Therapy: is not on home oxygen therapy. Ventilator: No ventilator support Rehab Therapies: physical therapy, nursing, and aide Weight Bearing Status/Restrictions: no restriction Other Medical Equipment (for information only, NOT a DME order): rolling walker Other Treatments: n/a Patient's personal belongings (please select all that are sent with patient): dentures upper, shirt, pants, shoes, cell phone, glucometer RN SIGNATURE: MANAGEMENT/SOCIAL WORK SECTION Inpatient Status Date: 11/29/23 Discharging to Facility/ Agency Name: [facility] Address: [address] [place] [address] Dialysis Facility (if applicable) Name: Address: Dialysis Schedule: Phone: Fax: Hand Embroiderer/Box Person signature: ICIAN SECTION Name: James Reyes Prognosis: fair Condition at Discharge: stable Rehab Potential (if transferring to Rehab): fair Recommended Labs or Other Treatments After Discharge: CBC and BMP every 3 days The individual is being admitted to a nursing facility directly from an [facility] or a unit of a [facility] that is not operated by or licensed by [facility] under section 5119.14 or 5160-3-15.1 5 The individual requires the level of services provided by a nursing facility for the condition for which he or she was treated in the hospital and, Physician Certification: I certify the above information and transfer of James Reyes is necessary for the continuing treatment of the diagnosis listed and that he requires fpc facility for less than 30 days. Update Admission H&P: No change in H&P PHYSICIAN SIGNATURE: The following attachments cannot be sent through Care Everywhere.Concussion Discharge Instructions, Adult ([place]an)Quitting Smoking ([place]an)documented in this encounter [facility] 11-29-2023 Emergency department Note Pt assisted using urinal, but unable to urinate at this time. Pt asking for vaccuum mattress to be removed. Dr. Arreola assisted in rolling pt and removing mattress. Pt complains of chronic pain in legs and back, but no new pain. Minda Quesada RN 11/29/23 1707 [facility] 11-29-2023 Emergency department Note Pt'd continous glucose monitor is going off. Reading 69. Finger stick glucose 84 on arrival. Minda Quesada RN 11/29/23 1611 [facility] 11-29-2023 Emergency department Triage note Pt arrives via [facility] after a fall. Pt lives at [facility]. Pt was walking with his rollator on [facility] to go get cigarettes. Pt lost his balance while walking and stumbled onto grass and fell backwards hitting his head. No loss of consciousness per bystanders. Pt has chronic pain in back and legs. Pt arrives with c collar in place. Alert and oriented x 4. Skin warm and dry. Respirations even and unlabored. Call light in reach. [facility] 11-29-2023 Physician Emergency department Note EMERGENCY DEPARTMENT ENCOUNTER Pt Name: James Reyes Birthdate 1955 Date of evaluation: 11/29/2023 ED Provider: Gulshan Arreola DO CHIEF COMPLAINT Chief Complaint Patient presents with Fall Head Laceration HISTORY OF PRESENT ILLNESS (Location/Symptom, Timing/Onset, Context/Setting, Quality, Duration, Modifying Factors, Severity) Note limiting factors. I wore appropriate PPE for the entirety of this encounter. HPI James Reyes is a 68 y.o. who presents to the emergency department via EMS status post mechanical fall. Patient resides at SNF was using rollator to go to the store and rollator caught on uneven sidewalk and the grass causing him to fall and hit his head. He denies any LOC nausea vomiting blood thinners chest pain or other injuries. Patient has chronic pain in back and legs at baseline. Patient has abrasions unsure of last Tdap. Patient has a history of COPD without home oxygen requirements. He denies any neck pain or injury c-collar in place on arrival by EMS. Nursing Notes were reviewed. Limitations to history: Outside historians: REVIEW OF SYSTEMS Review of Systems Pertinent positives and negatives as per HPI PAST MEDICAL HISTORY Past Medical History: Diagnosis Date Acute kidney injury (HCC) 09/11/2015 CAD in [place] artery 08/08/2017 COPD (chronic obstructive pulmonary disease) (HCC) Developmental disorder Diabetes mellitus (HCC) Esophageal reflux Gastritis see EGD on 03/29/2016 GERD (gastroesophageal reflux disease) Hyperlipidemia IBS (irritable bowel syndrome) Mixed Obesity Osteoarthritis Pain management Plantar fasciitis, bilateral Unspecified sleep apnea Urinary retention SURGICAL HISTORY Past Surgical History: Procedure Laterality Date CHOLECYSTECTOMY 03/29/20162010 COLONOSCOPY 05/23/2017 COLONOSCOPY 03/29/2016, repeat in 10 years, Dr. Ness, normal except internal hemorrhoid COLONOSCOPY N/A 07/18/2022 Performed by David Chen MD at [facility] OR CORONARY ARTERY BYPASS GRAFT FOOT SURGERY Left 2015 HEMORRHOID SURGERY 1997 INNER EAR SURGERY tube placement in ears LAYERED WOUND CLOSURE N/A 10/16/2017 sternal wound debridment and closure with wound vac OTHER SURGICAL HISTORY 10/24/2017 I&D sternal wound with flap OTHER SURGICAL HISTORY punching bag removal THYROID SURGERY nodule removal 2010 TONSILLECTOMY (HISTORICAL) UPPER GASTROINTESTINAL ENDOSCOPY 04/01/2016 gastritis, duodentitis WISDOM TOOTH EXTRACTION CURRENT MEDICATIONS Current Discharge Medication List CONTINUE these medications which have NOT CHANGED Details acetaminophen (Tylenol) 325 MG tablet Take 1,000 mg by mouth 3 times daily. Advair Diskus 250-50 MCG/ACT aerosol powder albuterol (2.5 MG/3ML) 0.083% nebulizer solution Inhale 2.5 mg. albuterol 108 (90 Base) MCG/ACT inhaler Inhale 2 puffs every 6 hours as needed. aspirin 81 MG chewable tablet Chew 81 mg daily. atorvastatin (Lipitor) 80 MG tablet Take 80 mg by mouth in the morning. carvedilol (Coreg) 6.25 MG tablet Take 1 tablet (6.25 mg) by mouth in the morning and 1 tablet (6.25 mg) in the evening. Take with meals. Qty: 180 tablet, Refills: 3 cholestyramine (Questran) 4 g packet Take 1 packet by mouth in the morning and 1 packet at noon and 1 packet in the evening. Take with meals. cilostazol (Pletal) 50 MG tablet Take 50 mg by mouth 2 times daily. clindamycin (Cleocin) 150 MG capsule Take 150 mg by mouth in the morning and 150 mg at noon and 150 mg in the evening and 150 mg before bedtime. dicyclomine (Bentyl) 10 MG capsule Take 10 mg by mouth 3 times daily. empagliflozin (Jardiance) 25 MG Take 25 mg by mouth daily. ergocalciferol (Vitamin D-2) 1.25 MG (28756 UT) capsule Take 1.25 mg by mouth 1 (one) time per week. Every Monday ezetimibe (Zetia) 10 MG tablet Take 10 mg by mouth Nightly. famotidine (Pepcid) 20 MG tablet Take 20 mg by mouth in the morning. finasteride (Proscar) 5 MG tablet Take 5 mg by mouth in the morning. fluticasone (Flonase) 50 MCG/ACT nasal spray Administer 1 spray into each nostril daily. Shake gently. Before first use, prime pump. After use, clean tip and replace cap. ibuprofen 600 MG tablet Take 600 mg by mouth every 6 hours as needed for mild pain (1-3). insulin glargine (Lantus) 100 UNIT/ML injection Inject 48 Units under the skin in the morning. Insulin Lispro (Humalog) 100 UNIT/ML solution injection Inject 16 Units under the skin in the morning and 16 Units at noon and 16 Units in the evening. Menthol, Topical Analgesic, (Biofreeze Cool The Pain) 4 % gel Apply topically every 12 hours as needed (lower back). nabumetone (Relafen) 500 MG tablet Take 750 mg by mouth 2 times daily. nitroglycerin (Nitrostat) 0.[address] 0.4 mg under the tongue every 5 minutes as needed for chest pain. nystatin (Mycostatin) cream pancrelipase, Vxd-Bhaf-Tuga, (Creon) 63633-65679 units capsule Take by mouth 3 times daily (with meals). pregabalin (Lyrica) 150 MG capsule Take 150 mg by mouth 2 times daily. tamsulosin (Flomax) 0.4 MG 24 hr capsule Take 0.4 mg by mouth daily. tiotropium (Spiriva) [address] 1 capsule into inhaler and inhale in the morning. 2 puffs. ALLERGIES Penicillins and Tetracyclines & related FAMILY HISTORY Family History Problem Relation Name Age of Onset Heart attack Mother 61.00 Heart disease Father Other ([id number]) Brother accident Coronary artery disease Father Diabetes Father SOCIAL HISTORY Social History Socioeconomic History Marital status: Single Tobacco Use Smoking status: Every Day Current packs/day: 1.00 Average packs/day: 1 pack/day for 50.6 years (50.6 ttl pk-yrs) Types: Cigarettes Start date: 04/28/1973 Smokeless tobacco: Never Vaping Use Vaping status: Never Used Substance and Sexual Activity Alcohol use: No Alcohol/week: 0.0 standard drinks of alcohol Drug use: No Social Determinants of Health Transportation Needs: No Transportation Needs (11/30/2023) PRAPARE - Transportation Lack of Transportation (Medical): No Lack of Transportation (Non-Medical): No Intimate Partner Violence: Not At Risk (11/30/2023) Humiliation, Afraid, Rape, and Kick questionnaire Fear of Current or Ex-Partner: No Emotionally Abused: No Physically Abused: No Sexually Abused: No Housing Stability: Low Risk (11/30/2023) Housing Stability Vital Sign Unable to Pay for Housing in the Last Year: No Number of Times Moved in the Last Year: 0 Homeless in the Last Year: No PHYSICAL EXAM ED Triage Vitals [11/29/23 1536] Temp Heart Rate Resp BP 36.2 C (97.2 F) 65 14 119/65 SpO2 Temp Source Heart Rate Source Patient Position (!) 92 % Temporal -- Lying BP Location FiO2 (%) Right arm -- 94% on room air Physical Exam Vitals and nursing note reviewed. Constitutional: General: He is awake. He is not in acute distress. Appearance: He is not toxic-appearing. HENT: Head: Normocephalic. Abrasion and contusion present. No raccoon eyes or Frost's sign. Comments: Occipital contusion with overlying abrasion no lacerations Mouth/Throat: Pharynx: Oropharynx is clear. Eyes: General: Vision grossly intact. Extraocular Movements: Extraocular movements intact. Conjunctiva/sclera: Conjunctivae normal. Pupils: Pupils are equal, round, and reactive to light. Cardiovascular: Rate and Rhythm: Normal rate and regular rhythm. Pulses: Normal pulses. Pulmonary: Effort: Pulmonary effort is normal. Breath sounds: Normal breath sounds. Chest: Chest wall: No tenderness. Abdominal: Palpations: Abdomen is soft. Tenderness: There is no abdominal tenderness. Musculoskeletal: General: Normal range of motion. Cervical back: No spinous process tenderness. Comments: No midline spinous process tenderness step-offs or deformities no crepitus or significant bony tenderness head to toe. Chronic pain at baseline. Skin: General: Skin is warm and dry. Neurological: General: No focal deficit present. Mental Status: He is alert and oriented to person, place, and time. Psychiatric: Mood and Affect: Mood normal. Behavior: Behavior normal. DIAGNOSTIC RESULTS RADIOLOGY (Per Emergency Physician): Interpretation per the Radiologist below, if available at the time of this note: MR brain w and wo contrast Final Result 1. Diminished cerebral volume and evidence of chronic white matter small vessel ischemic change without acute intracranial abnormality. No pathological post contrast enhancement. 2. Paranasal sinus disease. EXAMINATION: MR arteriography of the head. EXAM DATE & TIME: 12/01/2023 12:30 PM EDT INDICATION: Dizziness, persistent/recurrent, cardiac or vascular cause suspected ADDITIONAL INFORMATION: 68-year-old male with dizziness presents for evaluation COMPARISON: None LIMITATIONS: None TECHNIQUE: Three-dimensional gradient echo intracranial MRA sequence was performed. Maximum intensity projection images were created in various orientations. FINDINGS: Distal internal carotid arteries: Unremarkable. Anterior cerebral arteries: Unremarkable. Middle cerebral arteries: Unremarkable. Distal vertebral arteries: Unremarkable. Basilar artery: Unremarkable. Posterior cerebral arteries: There is origin of the right SATURATOR TENDER. Otherwise, unremarkable. Anterior communicating artery: Unremarkable. Posterior communicating arteries: Robustness of the right posterior communicating artery is present, in keeping with origin of the right SATURATOR TENDER. Otherwise, unremarkable. Aneurysm or vascular malformation: None identified. IMPRESSION: No acute intracranial arterial abnormality identified. EXAMINATION: MR arteriography of the neck with and without contrast. EXAM DATE & TIME: 12/01/2023 12:30 PM EDT INDICATION: Dizziness, persistent/recurrent, cardiac or vascular cause suspected ADDITIONAL INFORMATION: 68-year-old male with dizziness presents for evaluation COMPARISON: None LIMITATIONS: None TECHNIQUE: Three-dimensional gradient echo non-contrast sequence along with dynamic contrast enhanced MRA sequences were performed through the extracranial carotid arterial circulation before and following administration of 12 mL of Gadavist gadolinium-based contrast. Maximum intensity projection images were created in various orientations. Measurement of carotid stenosis is a ratio based on conventional angiographic data from the NASCET trials with the smallest caliber of the internal carotid as the numerator and normal post-stenotic internal carotid caliber as denominator. FINDINGS: Aortic arch and great vessel origins: Unremarkable. Right common and external carotid: Unremarkable. Right internal carotid: No significant stenosis identified with less than 30 percent luminal narrowing. Left common and external carotid: Unremarkable. Left internal carotid: No significant stenosis identified with less than 30 percent luminal narrowing. Vertebral arteries: Unremarkable. IMPRESSION: 1. No hemodynamically significant internal carotid stenosis. 2. Patent vertebral arteries. Report Dictated on Electronically Signed By: Amadeo Luciano MD Electronically Signed Date/Time: 12/01/2023 1:27 PM EDT MR head angio wo IV contrast Final Result 1. Diminished cerebral volume and evidence of chronic white matter small vessel ischemic change without acute intracranial abnormality. No pathological post contrast enhancement. 2. Paranasal sinus disease. EXAMINATION: MR arteriography of the head. EXAM DATE & TIME: 12/01/2023 12:30 PM EDT INDICATION: Dizziness, persistent/recurrent, cardiac or vascular cause suspected ADDITIONAL INFORMATION: 68-year-old male with dizziness presents for evaluation COMPARISON: None LIMITATIONS: None TECHNIQUE: Three-dimensional gradient echo intracranial MRA sequence was performed. Maximum intensity projection images were created in various orientations. FINDINGS: Distal internal carotid arteries: Unremarkable. Anterior cerebral arteries: Unremarkable. Middle cerebral arteries: Unremarkable. Distal vertebral arteries: Unremarkable. Basilar artery: Unremarkable. Posterior cerebral arteries: There is origin of the right SATURATOR TENDER. Otherwise, unremarkable. Anterior communicating artery: Unremarkable. Posterior communicating arteries: Robustness of the right posterior communicating artery is present, in keeping with origin of the right SATURATOR TENDER. Otherwise, unremarkable. Aneurysm or vascular malformation: None identified. IMPRESSION: No acute intracranial arterial abnormality identified. EXAMINATION: MR arteriography of the neck with and without contrast. EXAM DATE & TIME: 12/01/2023 12:30 PM EDT INDICATION: Dizziness, persistent/recurrent, cardiac or vascular cause suspected ADDITIONAL INFORMATION: 68-year-old male with dizziness presents for evaluation COMPARISON: None LIMITATIONS: None TECHNIQUE: Three-dimensional gradient echo non-contrast sequence along with dynamic contrast enhanced MRA sequences were performed through the extracranial carotid arterial circulation before and following administration of 12 mL of Gadavist gadolinium-based contrast. Maximum intensity projection images were created in various orientations. Measurement of carotid stenosis is a ratio based on conventional angiographic data from the NASCET trials with the smallest caliber of the internal carotid as the numerator and normal post-stenotic internal carotid caliber as denominator. FINDINGS: Aortic arch and great vessel origins: Unremarkable. Right common and external carotid: Unremarkable. Right internal carotid: No significant stenosis identified with less than 30 percent luminal narrowing. Left common and external carotid: Unremarkable. Left internal carotid: No significant stenosis identified with less than 30 percent luminal narrowing. Vertebral arteries: Unremarkable. IMPRESSION: 1. No hemodynamically significant internal carotid stenosis. 2. Patent vertebral arteries. Report Dictated on Electronically Signed By: Amadeo Luciano MD Electronically Signed Date/Time: 12/01/2023 1:27 PM EDT MR neck angio w and wo IV contrast Final Result 1. Diminished cerebral volume and evidence of chronic white matter small vessel ischemic change without acute intracranial abnormality. No pathological post contrast enhancement. 2. Paranasal sinus disease. EXAMINATION: MR arteriography of the head. EXAM DATE & TIME: 12/01/2023 12:30 PM EDT INDICATION: Dizziness, persistent/recurrent, cardiac or vascular cause suspected ADDITIONAL INFORMATION: 68-year-old male with dizziness presents for evaluation COMPARISON: None LIMITATIONS: None TECHNIQUE: Three-dimensional gradient echo intracranial MRA sequence was performed. Maximum intensity projection images were created in various orientations. FINDINGS: Distal internal carotid arteries: Unremarkable. Anterior cerebral arteries: Unremarkable. Middle cerebral arteries: Unremarkable. Distal vertebral arteries: Unremarkable. Basilar artery: Unremarkable. Posterior cerebral arteries: There is origin of the right SATURATOR TENDER. Otherwise, unremarkable. Anterior communicating artery: Unremarkable. Posterior communicating arteries: Robustness of the right posterior communicating artery is present, in keeping with origin of the right SATURATOR TENDER. Otherwise, unremarkable. Aneurysm or vascular malformation: None identified. IMPRESSION: No acute intracranial arterial abnormality identified. EXAMINATION: MR arteriography of the neck with and without contrast. EXAM DATE & TIME: 12/01/2023 12:30 PM EDT INDICATION: Dizziness, persistent/recurrent, cardiac or vascular cause suspected ADDITIONAL INFORMATION: 68-year-old male with dizziness presents for evaluation COMPARISON: None LIMITATIONS: None TECHNIQUE: Three-dimensional gradient echo non-contrast sequence along with dynamic contrast enhanced MRA sequences were performed through the extracranial carotid arterial circulation before and following administration of 12 mL of Gadavist gadolinium-based contrast. Maximum intensity projection images were created in various orientations. Measurement of carotid stenosis is a ratio based on conventional angiographic data from the NASCET trials with the smallest caliber of the internal carotid as the numerator and normal post-stenotic internal carotid caliber as denominator. FINDINGS: Aortic arch and great vessel origins: Unremarkable. Right common and external carotid: Unremarkable. Right internal carotid: No significant stenosis identified with less than 30 percent luminal narrowing. Left common and external carotid: Unremarkable. Left internal carotid: No significant stenosis identified with less than 30 percent luminal narrowing. Vertebral arteries: Unremarkable. IMPRESSION: 1. No hemodynamically significant internal carotid stenosis. 2. Patent vertebral arteries. Report Dictated on Electronically Signed By: Amadeo Luciano MD Electronically Signed Date/Time: 12/01/2023 1:27 PM EDT XR chest 1 view Final Result Coarsening of the interstitial lung markings is likely chronic. No focal consolidation is identified. No metallic foreign body is identified within the chest. Report Dictated on Electronically Signed By: Melvin Scott MD Electronically Signed Date/Time: 11/30/2023 3:00 PM EDT XR abdomen 1 view Final Result Nonobstructive bowel gas pattern. No metallic foreign body is identified within the visualized portion of the abdomen and pelvis. Report Dictated on Electronically Signed By: Melvin Scott MD Electronically Signed Date/Time: 11/30/2023 2:[address] cervical spine wo IV contrast Final Result 1. No acute intracranial findings. Chronic ischemic and atrophic changes. 2. No acute compression deformity or apparent fracture in the cervical spine. Degenerative spondylosis. Report Dictated on Electronically Signed By: Primo Millan MD Electronically Signed Date/Time: 11/29/2023 6:[address] head wo IV contrast Final Result 1. No acute intracranial findings. Chronic ischemic and atrophic changes. 2. No acute compression deformity or apparent fracture in the cervical spine. Degenerative spondylosis. Report Dictated on Electronically Signed By: Primo Millan MD Electronically Signed Date/Time: 11/29/2023 6:28 PM EDT LABS: Labs Reviewed CBC WITH AUTO DIFFERENTIAL - Abnormal Result Value Auto WBC 7.0 RBC 3.84 (*) Hemoglobin 11.7 (*) Hematocrit 36.9 (*) MCV 96.1 MCH 30.5 MCHC 31.7 RDW 15.6 (*) Platelets 219 MPV 10.3 nRBC 0.0 Neutrophils Relative 74.4 Lymphocytes Relative 13.5 (*) Monocytes Relative 9.5 Eosinophils Relative 2.0 Basophils Relative 0.3 Immature Grans % 0.3 Neutrophils Absolute 5.2 Lymphocytes Absolute 0.9 (*) Monocytes Absolute 0.7 Eosinophils Absolute 0.1 Basophils Absolute 0.0 Immature Grans Absolute 0.0 COMPREHENSIVE METABOLIC PANEL - Abnormal SODIUM 141 POTASSIUM 4.1 CHLORIDE 115 (*) CARBON DIOXIDE 21 (*) ANION GAP 5 UREA NITROGEN 30 (*) CREATININE 1.13 GLUCOSE 93 CALCIUM 9.2 AST (SGOT) 20 ALT 14 ALKALINE PHOSPHATASE 86 ALBUMIN 3.8 BILIRUBIN, TOTAL 0.5 TOTAL PROTEIN 6.3 eGFR 71.2 HEMOGLOBIN A1C - Abnormal HEMOGLOBIN A1C 8.5 (*) ESTIMATED AVERAGE GLUCOSE 197 LIPID PANEL - Abnormal TRIGLYCERIDE 166 (*) CHOLESTEROL 108 LOW DENSITY LIPOPROTEIN 33 HDL CHOLESTEROL 42 CHOL/HDL 3 CBC (HEMOGRAM) - Abnormal Auto WBC 5.1 RBC 3.56 (*) Hemoglobin 10.9 (*) Hematocrit 34.5 (*) MCV 96.9 MCH 30.6 MCHC 31.6 RDW 15.6 (*) Platelets 191 MPV 10.4 COMPREHENSIVE METABOLIC PANEL - Abnormal SODIUM 138 POTASSIUM 3.9 CHLORIDE 115 (*) CARBON DIOXIDE 19 (*) ANION GAP 5 UREA NITROGEN 27 (*) CREATININE 1.05 GLUCOSE 121 (*) CALCIUM 8.8 AST (SGOT) 19 ALT 13 ALKALINE PHOSPHATASE 81 ALBUMIN 3.2 (*) BILIRUBIN, TOTAL 0.5 TOTAL PROTEIN 5.7 (*) eGFR 77.8 VITAMIN B12 - Abnormal VITAMIN B12 167 (*) VITAMIN D DEFICIENCY SCREENING (VIT D 25) - Abnormal VIT D 25-OH, TOTAL 24 (*) Narrative: Therapy is based on measurement of Total 25-OHD with the following classification levels: Less than 20 ng/mL: Indicative of Vit D deficiency 20-30 ng/mL: Suggests Vit D insufficiency Optimal: Greater than or equal to 30 ng/mL Test performed by Ker[employer] Competitive Immunoassay, measuring Total Vitamin D, not individual fractions. CBC WITH AUTO DIFFERENTIAL - Abnormal Auto WBC 4.3 RBC 3.48 (*) Hemoglobin 10.4 (*) Hematocrit 33.3 (*) MCV 95.7 MCH 29.9 MCHC 31.2 RDW 15.7 (*) Platelets 173 MPV 10.5 nRBC 0.0 Neutrophils Relative 61.1 Lymphocytes Relative 21.8 Monocytes Relative 11.3 Eosinophils Relative 5.1 Basophils Relative 0.5 Immature Grans % 0.2 Neutrophils Absolute 2.6 Lymphocytes Absolute 0.9 (*) Monocytes Absolute 0.5 Eosinophils Absolute 0.2 Basophils Absolute 0.0 Immature Grans Absolute 0.0 COMPREHENSIVE METABOLIC PANEL - Abnormal SODIUM 138 POTASSIUM 4.1 CHLORIDE 114 (*) CARBON DIOXIDE 19 (*) ANION GAP 5 UREA NITROGEN 25 (*) CREATININE 1.08 GLUCOSE 137 (*) CALCIUM 8.6 AST (SGOT) 20 ALT 15 ALKALINE PHOSPHATASE 80 ALBUMIN 3.2 (*) BILIRUBIN, TOTAL 0.5 TOTAL PROTEIN 5.6 (*) eGFR 75.2 CBC WITH AUTO DIFFERENTIAL - Abnormal Auto WBC 4.6 RBC 3.47 (*) Hemoglobin 10.5 (*) Hematocrit 33.7 (*) MCV 97.1 MCH 30.3 MCHC 31.2 RDW 15.7 (*) Platelets 171 MPV 10.7 nRBC 0.0 Neutrophils Relative 65.1 Lymphocytes Relative 18.0 Monocytes Relative 11.4 Eosinophils Relative 4.6 Basophils Relative 0.7 Immature Grans % 0.2 Neutrophils Absolute 3.0 Lymphocytes Absolute 0.8 (*) Monocytes Absolute 0.5 Eosinophils Absolute 0.2 Basophils Absolute 0.0 Immature Grans Absolute 0.0 COMPREHENSIVE METABOLIC PANEL - Abnormal SODIUM 137 POTASSIUM 4.1 CHLORIDE 113 (*) CARBON DIOXIDE 18 (*) ANION GAP 5 UREA NITROGEN 23 (*) CREATININE 1.00 GLUCOSE 216 (*) CALCIUM 8.5 AST (SGOT) 16 ALT 14 ALKALINE PHOSPHATASE 82 ALBUMIN 3.1 (*) BILIRUBIN, TOTAL 0.3 TOTAL PROTEIN 5.5 (*) eGFR 82.5 CBC WITH AUTO DIFFERENTIAL - Abnormal Auto WBC 4.2 RBC 3.36 (*) Hemoglobin 10.2 (*) Hematocrit 32.5 (*) MCV 96.7 MCH 30.4 MCHC 31.4 RDW 15.4 (*) Platelets 165 MPV 10.5 nRBC 0.0 Neutrophils Relative 63.0 Lymphocytes Relative 20.9 Monocytes Relative 10.9 Eosinophils Relative 4.5 Basophils Relative 0.5 Immature Grans % 0.2 Neutrophils Absolute 2.7 Lymphocytes Absolute 0.9 (*) Monocytes Absolute 0.5 Eosinophils Absolute 0.2 Basophils Absolute 0.0 Immature Grans Absolute 0.0 COMPREHENSIVE METABOLIC PANEL - Abnormal SODIUM 139 POTASSIUM 3.9 CHLORIDE 114 (*) CARBON DIOXIDE 20 (*) ANION GAP 5 UREA NITROGEN 19 CREATININE 0.93 GLUCOSE 134 (*) CALCIUM 8.4 AST (SGOT) 13 (*) ALT 12 ALKALINE PHOSPHATASE 71 ALBUMIN 2.9 (*) BILIRUBIN, TOTAL 0.3 TOTAL PROTEIN 5.3 (*) eGFR 90.0 POCT GLUCOSE METER UNSOLICITED RESULTS - Abnormal Glucose 101 (*) Narrative: Performed by: [facility], [address] [place] [address] CLIA ID: [id number] POCT GLUCOSE METER UNSOLICITED RESULTS - Abnormal Glucose 139 (*) Narrative: Performed by: [facility], [address] [place] [address] CLIA ID: [id number] POCT GLUCOSE METER UNSOLICITED RESULTS - Abnormal Glucose 124 (*) Narrative: Performed by: [facility], [address] [place] [address] CLIA ID: [id number] POCT GLUCOSE METER UNSOLICITED RESULTS - Abnormal Glucose 139 (*) Narrative: Performed by: [facility], [address] [place] [id number] CLIA ID: [id number] POCT GLUCOSE METER UNSOLICITED RESULTS - Abnormal Glucose 200 (*) Narrative: Performed by: [facility], [address] [place] [id number] CLIA ID: [id number] POCT GLUCOSE METER UNSOLICITED RESULTS - Abnormal Glucose 124 (*) Narrative: Performed by: [facility], [address] [place] [id number] CLIA ID: [id number] POCT GLUCOSE METER UNSOLICITED RESULTS - Abnormal Glucose 156 (*) Narrative: Performed by: [facility], [address] [place] [id number] CLIA ID: [id number] POCT GLUCOSE METER UNSOLICITED RESULTS - Abnormal Glucose 276 (*) Narrative: Performed by: [facility], [address] [place] [id number] CLIA ID: [id number] POCT GLUCOSE METER UNSOLICITED RESULTS - Abnormal Glucose 156 (*) Narrative: Performed by: [facility], [address] [place] [id number] CLIA ID: [id number] POCT GLUCOSE METER UNSOLICITED RESULTS - Abnormal Glucose 207 (*) Narrative: Performed by: [facility], [address] [place] [id number] CLIA ID: [id number] POCT GLUCOSE METER UNSOLICITED RESULTS - Abnormal Glucose 142 (*) Narrative: Performed by: [facility], [address] [place] [id number] CLIA ID: [id number] POCT GLUCOSE METER UNSOLICITED RESULTS - Abnormal Glucose 259 (*) Narrative: Performed by: [facility], [address] [place] [id number] CLIA ID: [id number] POCT GLUCOSE METER UNSOLICITED RESULTS - Abnormal Glucose 119 (*) Narrative: Performed by: [facility], [address] [place] [id number] CLIA ID: [id number] PROTHROMBIN TIME - Normal PROTHROMBIN TIME 10.9 INR 1.0 TROPONIN, WITH SERIAL REFLEX - Normal TROPONIN I <0.012 Narrative: Patients with high levels of Biotin oral intake (ie >5 mg/day) may have falsely decreased Troponin levels. TROPONIN, WITH SERIAL REFLEX - Normal TROPONIN I <0.012 Narrative: Patients with high levels of Biotin oral intake (ie >5 mg/day) may have falsely decreased Troponin levels. TROPONIN I - Normal TROPONIN I <0.012 Narrative: Patients with high levels of Biotin oral intake (ie >5 mg/day) may have falsely decreased Troponin levels. TROPONIN I - Normal TROPONIN I <0.012 Narrative: Patients with high levels of Biotin oral intake (ie >5 mg/day) may have falsely decreased Troponin levels. THYROID STIMULATING HORMONE - Normal THYROID STIMULATING HORMONE 1.209 FOLATE - Normal FOLATE RESULT 3.7 POCT GLUCOSE METER UNSOLICITED RESULTS - Normal Glucose 84 Narrative: Performed by: [facility], [address] [place] [address] CLIA ID: [id number] POCT GLUCOSE METER UNSOLICITED RESULTS - Normal Glucose 74 Narrative: Performed by: [facility], [address] [place] [address] CLIA ID: [id number] COMPREHENSIVE METABOLIC PANEL WITH MG REFLEX Narrative: The following orders were created for panel order Comprehensive Metabolic Panel w/ Mg Reflex. Procedure Abnormality Status --------- ------ Comprehensive metabolic ...[[id number]] Abnormal Final result Please view results for these tests on the individual orders. COMPREHENSIVE METABOLIC PANEL WITH MG REFLEX Narrative: The following orders were created for panel order Comprehensive Metabolic Panel with Mg Reflex. Procedure Abnormality Status --------- ------ Comprehensive metabolic ...[[id number]] Abnormal Final result Please view results for these tests on the individual orders. COMPREHENSIVE METABOLIC PANEL WITH MG REFLEX Narrative: The following orders were created for panel order Comprehensive Metabolic Panel with Mg Reflex. Procedure Abnormality Status --------- ------ Comprehensive metabolic ...[[id number]] Abnormal Final result Please view results for these tests on the individual orders. COMPREHENSIVE METABOLIC PANEL WITH MG REFLEX Narrative: The following orders were created for panel order Comprehensive Metabolic Panel with Mg Reflex. Procedure Abnormality Status --------- ------ Comprehensive metabolic ...[[id number]] Abnormal Final result Please view results for these tests on the individual orders. POCT GLUCOSE METER POCT GLUCOSE METER POCT GLUCOSE METER POCT GLUCOSE METER POCT GLUCOSE METER POCT GLUCOSE METER POCT GLUCOSE METER POCT GLUCOSE METER POCT GLUCOSE METER POCT GLUCOSE METER POCT GLUCOSE METER POCT GLUCOSE METER POCT GLUCOSE METER All other labs were within normal range or not returned as of this dictation. EMERGENCY DEPARTMENT COURSE and DIFFERENTIAL DIAGNOSIS/MDM: Vitals: Vitals: 12/02/237 12/03/23 0232 12/03/23 0627 12/03/23 1022 BP: 122/63 121/63 (!) 113/49 118/51 BP Location: Right arm Right arm Left arm Patient Position: Lying Lying Lying Pulse: 51 (!) 48 50 52 Resp: 22 20 20 18 Temp: 36.2 C (97.2 F) 36 C (96.8 F) 36.3 C (97.3 F) 36.5 C (97.7 F) TempSrc: Temporal Temporal Temporal Temporal SpO2: 94% 93% 96% 95% Weight: Height: Medications mometasone-formoterol (Dulera 200) 200-5 MCG/ACT inhaler 2 puff (2 puffs Inhalation Given 12/03/2346) atorvastatin (Lipitor) tablet 80 mg (80 mg Oral Given 12/03/23844) aspirin chewable tablet 81 mg (81 mg Oral Given 12/03/2355) carvedilol (Coreg) tablet 6.25 mg (6.25 mg Oral Given 12/03/2345) cholestyramine (Questran) packet 4 g (4 g Oral Given 12/03/23843) cilostazol (Pletal) tablet 50 mg (50 mg Oral Given 12/03/23844) dicyclomine (Bentyl) capsule 10 mg (10 mg Oral Given 12/03/23843) ezetimibe (Zetia) tablet 10 mg (10 mg Oral Given 12/02/237) famotidine (Pepcid) tablet 20 mg (20 mg Oral Given 8/18/24 0844) finasteride (Proscar) tablet 5 mg (5 mg Oral Given 12/03/23 0845) fluticasone (Flonase) nasal spray 1 spray (1 spray Each Nostril Not Given 12/03/23 0900) insulin glargine (Lantus) injection 48 Units (48 Units SubCUTAneous Given 12/02/23 2306) Insulin Lispro (Humalog) injection 16 Units (16 Units SubCUTAneous Given 12/03/23 0845) pancrelipase (Jkt-Uwvp-Jvvc) (Creon) 6000-25528 units per capsule 2 capsule (2 capsules Oral Given 12/03/23 0844) pregabalin (Lyrica) capsule 150 mg (150 mg Oral Given 12/03/23 0844) tamsulosin (Flomax) 24 hr capsule 0.4 mg (0.4 mg Oral Given 12/03/23 0518) tiotropium (Spiriva Respimat) 2.5 MCG/ACT inhaler 2 puff (2 puffs Inhalation Given 12/03/23 0846) sodium chloride 0.9 % infusion (50 mL/hr IntraVENous Rate/Dose Verify 12/03/23 0842) acetaminophen (Tylenol) tablet 650 mg (650 mg Oral Given 12/01/23 1735) Or acetaminophen (Tylenol) suppository 650 mg ( Rectal See Alternative 12/01/23 173) ondansetron ODT (Zofran-ODT) disintegrating tablet 4 mg (has no administration in time range) Or ondansetron (Zofran) injection 4 mg (has no administration in time range) polyethylene glycol (PEG) 3350 (Miralax) packet 17 g (17 g Oral Given 12/03/23 0843) bisacodyl (Dulcolax) suppository 10 mg (has no administration in time range) labetalol (Normodyne,Trandate) injection 10 mg (has no administration in time range) enoxaparin (Lovenox) syringe 40 mg (40 mg SubCUTAneous Given 12/03/23 0845) glucose oral gel 15 g (has no administration in time range) dextrose 50 % solution 12.5 g (has no administration in time range) glucagon (human recombinant) injection 1 mg (has no administration in time range) dextrose 5 % infusion (has no administration in time range) methyl salicylate-menthol (Bengay) 10-15 % greaseless cream ( Apply externally Given 12/03/23 0884) oxyCODONE-acetaminophen (Percocet) 5-325 MG per tablet 1 tablet (1 tablet Oral Given 12/03/23 0518) naloxone (Narcan) injection 0.4 mg (has no administration in time range) albuterol (2.5 MG/3ML) 0.083% nebulizer solution 2.5 mg (has no administration in time range) cyanocobalamin (Vitamin B-12) injection 1,000 mcg (1,000 mcg IntraMUSCular Given 12/01/23 1341) Tdap (BoostRIX) vaccine 0.5 mL (0.5 mL IntraMUSCular Given 11/29/23 1645) meclizine (Antivert) tablet 25 mg (25 mg Oral Given 11/29/23 2043) perflutren protein A microsphere (Optison) 3 mL in sodium chloride (PF) 0.9 % 10 mL IV syringe (3 mL IntraVENous Given 11/30/23 1117) gadobutrol (Gadavist) injection 12 mL (12 mL IntraVENous Given 12/01/23 1205) 68-year-old male presented to the ED for mechanical fall when rollator got caught on uneven terrain causing fall with head impact. Exam as above. Will evaluate patient for number of etiologies include but not limited to intercranial hemorrhage, fracture, ambulatory dysfunction. CT head and neck without acute abnormality. Signed out to oncoming physician with plan for ambulatory trial. Later patient endorsing lightheadedness and dizziness which is new patient admitted for further evaluation and treatment. SCREENINGS Daisetta Coma Scale Best Eye Response: Spontaneous Best Verbal Response: Oriented Best Motor Response: Follows commands Orion Coma Scale Score: 15 NIH Stroke Scale 1A. Level of Consciousness: Alert, Keenly Responsive 1B. Ask Month and Age: 1 Question Right 1C. Blink Eyes & Squeeze Hands: Performs Both Tasks 2. Best Gaze: Normal 3. Visual: No Visual Loss 4. Facial Palsy: Normal Symmetrical Movements 5A. Motor - Left Arm: No Drift 5B. Motor - Right Arm: No Drift 6A. Motor - Left Leg: No Drift 6B. Motor - Right Leg: Some Effort Against [place] (pt reports pain being why he is having trouble lifting leg) 7. Limb Ataxia: Absent 8. Sensory Loss: Normal 9. Best Language: No Aphasia 10. Dysarthria: Normal 11. Extinction and Inattention: No Abnormality NIH Stroke Scale: 3 PROCEDURES: Unless otherwise noted below, none Procedures CRITICAL CARE TIME FINAL IMPRESSION 1. Closed head injury, initial encounter 2. Fall, initial encounter DISPOSITION Admit 11/29/2023 10:14:05 PM PATIENT REFERRED TO: No follow-up provider specified. DISCHARGE MEDICATIONS: Current Discharge Medication List (Comment: Please note this report has been produced using speech recognition software and may contain errors related to that system including errors in grammar, punctuation, and spelling, as well as words and phrases that may be inappropriate. If there are any questions or concerns please feel free to contact the dictating provider for clarification.) Gulshan Arreola DO (electronically signed) Emergency Medicine Provider Gulshan Arreola DO 12/03/23 1132 [facility] 11-29-2023 Physician Emergency department Note Emergency Department Encounter Location: [facility] CARDIAC POST INTERVENTION PROGRESSIVE CARE UNIT CPI PCU 4W Patient: James Reyes : 1955 Date of evaluation: 11/29/2023 ED Provider: Sergio Ruff DO Time received sign-out: [id number] James Reyes was checked out to me by Dr. Norman. Please see his/her initial documentation for details of the patient's initial ED presentation, physical exam and completed studies. In brief, James Reyes is a 68 y.o. adult that presented to the emergency department for fall. Patient had reportedly fallen and was undergoing CT scan of the head and cervical spine for possible injuries. These were read by the previous attending who did not see any acute findings and recommended ambulation test and discharge if patient was stable on his feet. I have reviewed and interpreted all of the currently available lab results and diagnostics from this visit: Results for orders placed or performed during the hospital encounter of 11/29/23 CBC auto differential Result Value Ref Range Auto WBC 7.0 3.6 - 10.7 10*3/uL RBC 3.84 (L) 4.40 - 5.90 10*6/uL Hemoglobin 11.7 (L) 13.0 - 18.0 g/dL Hematocrit 36.9 (L) 40.0 - 52.0 % MCV 96.1 77.0 - 99.0 fL MCH 30.5 26.0 - 34.0 pg MCHC 31.7 30.5 - 36.0 % RDW 15.6 (H) 11.5 - 15.0 % Platelets 219 140 - 440 10*3/uL MPV 10.3 9.0 - 12.7 fL nRBC 0.0 0.0 - 2.0 /100 WBCs Neutrophils Relative 74.4 38.0 - 82.0 % Lymphocytes Relative 13.5 (L) 15.0 - 45.0 % Monocytes Relative 9.5 5.0 - 13.0 % Eosinophils Relative 2.0 0.0 - 6.0 % Basophils Relative 0.3 0.0 - 2.0 % Immature Grans % 0.3 0.0 - 2.0 % Neutrophils Absolute 5.2 1.8 - 7.5 10*3/uL Lymphocytes Absolute 0.9 (L) 1.0 - 4.3 10*3/uL Monocytes Absolute 0.7 0.0 - 0.9 10*3/uL Eosinophils Absolute 0.1 0.0 - 0.5 10*3/uL Basophils Absolute 0.0 0.0 - 0.2 10*3/uL Immature Grans Absolute 0.0 <0.1 10*3/uL Comprehensive metabolic panel Result Value Ref Range SODIUM 141 135 - 145 mmol/L POTASSIUM 4.1 3.5 - 5.1 mmol/L CHLORIDE 115 (H) 98 - 107 mmol/L CARBON DIOXIDE 21 (L) 22 - 30 mmol/L ANION GAP 5 3 - 13 mmol/L UREA NITROGEN 30 (H) 9 - 20 mg/dL CREATININE 1.13 0.66 - 1.25 mg/dL GLUCOSE 93 70 - 100 mg/dL CALCIUM 9.2 8.4 - 10.4 mg/dL AST (SGOT) 20 15 - 46 U/L ALT 14 0 - 49 U/L ALKALINE PHOSPHATASE 86 38 - 126 U/L ALBUMIN 3.8 3.5 - 5.0 g/dL BILIRUBIN, TOTAL 0.5 0.2 - 1.3 mg/dL TOTAL PROTEIN 6.3 6.3 - 8.2 g/dL eGFR 71.2 >60.0 mL/min/1.73m*2 Protime-INR Result Value Ref Range PROTHROMBIN TIME 10.9 9.0 - 12.0 s INR 1.0 0.9 - 1.1 Troponin, with Serial Reflex Result Value Ref Range TROPONIN I <0.012 <0.034 ng/mL Troponin, with Serial Reflex Result Value Ref Range TROPONIN I <0.012 <0.034 ng/mL POCT glucose meter Result Value Ref Range Glucose 84 70 - 100 mg/dL POCT glucose meter Result Value Ref Range Glucose 101 (H) 70 - 100 mg/dL ECG 12 lead Result Value Ref Range Heart Rate 55 bpm QRSD Interval 126 ms QT Interval 457 ms QTC Interval 439 ms P [place] 13 degrees QRS [place] -44 degrees T Wave [place] 122 degrees [place] Interval [address] cervical spine wo IV contrast Final Result 1. No acute intracranial findings. Chronic ischemic and atrophic changes. 2. No acute compression deformity or apparent fracture in the cervical spine. Degenerative spondylosis. Report Dictated on Electronically Signed By: Primo Millan MD Electronically Signed Date/Time: 11/29/2023 6:[address] head wo IV contrast Final Result 1. No acute intracranial findings. Chronic ischemic and atrophic changes. 2. No acute compression deformity or apparent fracture in the cervical spine. Degenerative spondylosis. Report Dictated on Electronically Signed By: Primo Millan MD Electronically Signed Date/Time: 11/29/2023 6:28 PM EDT MR brain wo contrast (Results Pending) Final ED Course and MDM: In brief, James Reyes is a 68 y.o. whose care was signed out to me by the outgoing provider. In brief, this 68-year-old male had fallen. Plan was to evaluate ambulation trial and possible discharge. I was notified by nursing staff that they attempted to ambulate the patient with his walker and he felt lightheaded, urinated on himself and felt unsure about going home. I went into the room to examine the patient. He appears in no acute distress. He tells me that he had been going down the street to go to the grocery store from his assisted living facility. He was sitting on his rollator walker and pushed himself backwards. He fell backwards, rolling into a ditch and injuring the back of his head. Patient states that he understands that there were no acute injuries on his imaging but when he attempted to walk, he felt dizzy and lightheaded. He felt the room spinning around him. He currently states this has resolved. He has not had this before. No history of strokelike symptoms recently but states that he was told he had a stroke in the past. I attempted to have the patient's stand and he was able to walk into the hallway, appeared stable on his feet but states that he did have some mild residual dizziness. I brought him back to the room and performed a NIH stroke scale which was found to be 0. However, patient was noted to have a bilateral nystagmus. With this I was concerned about the possibility of posterior circulation stroke, BPPV or other peripheral vertigo. I added lab work, EKG and treated the patient with a dose of meclizine. Labs are reviewed and essentially unremarkable. EKG shows sinus rhythm without acute ischemic findings. On repeat evaluation, patient reports that his dizziness has improved some but he still has a mild bilateral nystagmus. For this reason I recommended that he be admitted for neurology evaluation. Considered a stroke team but patient's NIH stroke scale of 0 would not meet stroke team criteria. He is likely not a candidate for thrombolytics as he has been in the emergency department for 4-1/2 hours at this time of my evaluation. I have higher concern that his dizziness and nystagmus is related to his fall, peripheral cause and not indicative of acute posterior circulation stroke. I did call and speak with the hospitalist at [facility], Dr. Bowles who agreed accept patient for admission. Medications mometasone-formoterol (Dulera 200) 200-5 MCG/ACT inhaler 2 puff (2 puffs Inhalation Not Given 11/30/23 0115) albuterol (2.5 MG/3ML) 0.083% nebulizer solution 2.5 mg (has no administration in time range) atorvastatin (Lipitor) tablet 80 mg (has no administration in time range) aspirin chewable tablet 81 mg (has no administration in time range) carvedilol (Coreg) tablet 6.25 mg (has no administration in time range) cholestyramine (Questran) packet 4 g (has no administration in time range) cilostazol (Pletal) tablet 50 mg (50 mg Oral Given 11/30/23199) dicyclomine (Bentyl) capsule 10 mg (has no administration in time range) ezetimibe (Zetia) tablet 10 mg (10 mg Oral Given 11/30/23199) famotidine (Pepcid) tablet 20 mg (has no administration in time range) finasteride (Proscar) tablet 5 mg (has no administration in time range) fluticasone (Flonase) nasal spray 1 spray (has no administration in time range) insulin glargine (Lantus) injection 48 Units (has no administration in time range) Insulin Lispro (Humalog) injection 16 Units (has no administration in time range) pancrelipase (Gnb-Panb-Bgwa) (Creon) 6000-08821 units per capsule 2 capsule (has no administration in time range) pregabalin (Lyrica) capsule 150 mg (150 mg Oral Given 11/30/23199) tamsulosin (Flomax) 24 hr capsule 0.4 mg (has no administration in time range) tiotropium (Spiriva Respimat) 2.5 MCG/ACT inhaler 2 puff (has no administration in time range) sodium chloride 0.9 % infusion (50 mL/hr IntraVENous New Bag 11/30/23199) acetaminophen (Tylenol) tablet 650 mg (650 mg Oral Given 11/30/23213) Or acetaminophen (Tylenol) suppository 650 mg ( Rectal See Alternative 11/30/23213) ondansetron ODT (Zofran-ODT) disintegrating tablet 4 mg (has no administration in time range) Or ondansetron (Zofran) injection 4 mg (has no administration in time range) polyethylene glycol (PEG) 3350 (Miralax) packet 17 g (has no administration in time range) bisacodyl (Dulcolax) suppository 10 mg (has no administration in time range) labetalol (Normodyne,Trandate) injection 10 mg (has no administration in time range) enoxaparin (Lovenox) syringe 40 mg (has no administration in time range) glucose oral gel 15 g (has no administration in time range) dextrose 50 % solution 12.5 g (has no administration in time range) glucagon (human recombinant) injection 1 mg (has no administration in time range) dextrose 5 % infusion (has no administration in time range) Tdap (BoostRIX) vaccine 0.5 mL (0.5 mL IntraMUSCular Given 11/29/231644) meclizine (Antivert) tablet 25 mg (25 mg Oral Given 11/29/232042) Final Impression 1. Closed head injury, initial encounter 2. Fall, initial encounter DISPOSITION Admit 11/29/2023 10:14:05 PM (Please note that portions of this note may have been completed with a voice recognition program. Efforts were made to edit the dictations but occasionally words are mis-transcribed.) Sergio Ruff DO [employer] Sergio Ruff DO 11/30/23432 Sergio Ruff DO 11/30/23434 [facility] 09-14-2023 Instructions Jacqui Glass DDS 09/14/2023 10:08 AM EDT Dental extraction Instructions Biting on Gauze to Control Bleeding Bleeding may occur for some time after you extraction. In most cases this bleeding can be easily controlled by placing a piece of clean gauze DIRECTLY over the empty tooth socket. Then make sure that you bite firmly on this gauze for 30 to 60 minutes. Use the gauze we supplied to you in the bag. Wash your hands with soap and water before touching the gauze and placing it in your mouth. Place the used gauze from your mouth in a plastic bag and dispose the bag in a trash container. Make sure to wash your hands again when you are done touching the used gauze and before touching anything else. If a small amount of bleeding continues after 45 minutes then repeat these instructions. Sometimes biting a tea bag may be helpful in controlling minor bleeding. Very light bleeding for 2 days is not uncommon. If heavy bleeding is still persistent during normal clinic hours than call the Clinic where the extraction was done to speak with an oral surgeon. [facility] [phone]. HELPING THE HEALING PROCESS AND STOPPING THE BLEEDING FOR THE NEXT 24 HOURS (1 DAY) AFTER THE EXTRACTION: DO NOT RINSE YOUR MOUTH OR SPIT 2. DO NOT DRINK ANY HOT LIQUIDS SUCH SOUP, COFFEE, TEA, HOT CHOCOLATE AVOID HEAVY LIFTING, BENDING OR OTHER STENUOUS EXERCISES SLEEP WITH 2 PILLOWS OR IN A RECLINER CHAIR. KEEPING HEAD ELEVATED WILL REDUCE SWELLING. SUTURE WILL DISSOLVE IN 7-10 DAYS FOR THE NEXT 72 HOURS (3 DAYS) AFTER THE EXTRACTION: DO NOT SMOKE OR DRINK ALCOHOL DO NOT DRINK OR SUCK FROM A STRAW OR ANYTHING ELSEDO NOT DRINK. Stitches may have been placed to help healing. Your surgeon will advise you if you need to return to have them removed. TOOTH BRUSHING On the day of the extraction it is best to avoid brushing the teeth right next to the extraction site. On the next day you can start brushing ALL your teeth but in a gentle fashion. Remember to not rinse strongly because it may cause you to start bleeding from the extraction site again. SWELLING AND PAIN After the extraction you may feel some pain and experience some swelling. An ice pack of unopened bag of frozen peas of corn applied to the area should keep the swelling down. Put the ice pack on you face for 10 minutes and then leave it off for the next 20 minutes. You can repeat this patter as you feel is necessary for up to 24 hours after the extraction. To avoid injury, make sure that adults or children avoid biting or chewing on their lips of cheeks, which may be numb following an extraction. If your pain or swelling seems to be getting worse or you feel as though something is not right then call your dentist, as directed above. ANTIBIOTICS AND PAIN MEDICATION If antibiotics have been prescribed then you should take them as directed; this includes taking all the antibiotic (or liquid) pills that were prescribed. If you don't finish them completely a serious infection could result. You may have little of no discomfort after the extraction. If you have minor pain then you may want to take acetaminophen (Tylenol) or ibuprofen (Motrin). It is very important that before taking any medications that you read and follow the directions and warnings that come with these products so you know whether they are right for you and you situation. If you have any questions on whether these medications are right for you, first talk to your doctor or pharmacist before taking the medication. Your surgeon may have given you a written prescription for pain relief. It is important that if you decide to take it you read and understand all the precautions, warnings and directions that come with the medication. If you have any questions on whether the medication is right for you, first talk to your doctor or pharmacist before taking the medication. The pain medication prescription that your dentist gave you may contain a narcotic (like codeine). If so, most narcotic pain medications may upset your stomach. If so, then it is best to take them with food. The pain medication prescription that you were given can also make you drowsy or make you act strangely. If so, you should limit or stop activities such as driving a motor vehicle, operate machinery or other activities that require your full attention. EATING AND DRINKING A soft or liquid diet may be best for you after a difficult extraction. For a simpler extraction just make sure you do your chewing with those teeth that are NOT near the extraction site. POSTOPERATIVE INSTRUCTION AFTER SEDATION / GENERAL ANESTHESIA If you had general anesthesia of IV sedation, do not drive or operate machinery for 24 hours. A responsible adult should be with you for the remainder of the day. When starting oral intake, be sure to consume CLEAR LIQUIDS first. Clear liquids consist of water, Sprite, gloria candelaria, Jell-O, and non-pulp containing juices such as cranberry and apple juice. Once tolerating clear-liquids, you may advance your diet. Be sure to follow the specific diet instructions from your doctor according to the type of surgery you have had. It is important that you take any narcotic containing pain medications with food. Patients should not participate in any strenuous activity. Standing and sitting up too quickly following surgery can also result in dizziness and exacerbate these problems. It is also important that patients be supervised for an appropriate amount of time following sedation in order to ensure that they remain safe in the post-operative period. Under NO circumstances should a patient drive the day of surgery or participate in any important decisions. NAUSEA & VOMITING Nausea is not uncommon after surgery. Sometimes pain medications may be the cause. In the event of nausea and/or vomiting following surgery, do not take anything by mouth for at least an hour including the prescribed medicine. You should then sip on Coke, tea, or gloria candelaria. You should sip slowly over a 15-minute period. When the nausea subsides, you can begin taking solid foods and the prescribed medicine. You may take the anti-nausea medication if prescribed. If the above is not helpful, contact your surgeon. Please if you have any questions or concerns please contact us: [facility] . Ask for the behavioral health assistant ship's electronic warfare officer (after hours). rn outpatient surgery Clinic Hours: Mon-Fri 8:30 am to 4:30 pm. documented in this encounter [facility] 09-14-2023 Instructions Jacqui Glass DDS - 09/14/2023 10:08 AM EDT Dental extraction Instructions Biting on Gauze to Control Bleeding Bleeding may occur for some time after you extraction. In most cases this bleeding can be easily controlled by placing a piece of clean gauze DIRECTLY over the empty tooth socket. Then make sure that you bite firmly on this gauze for 30 to 60 minutes. Use the gauze we supplied to you in the bag. Wash your hands with soap and water before touching the gauze and placing it in your mouth. Place the used gauze from your mouth in a plastic bag and dispose the bag in a trash container. Make sure to wash your hands again when you are done touching the used gauze and before touching anything else. If a small amount of bleeding continues after 45 minutes then repeat these instructions. Sometimes biting a tea bag may be helpful in controlling minor bleeding. Very light bleeding for 2 days is not uncommon. If heavy bleeding is still persistent during normal clinic hours than call the Clinic where the extraction was done to speak with an oral surgeon. [facility] [phone]. HELPING THE HEALING PROCESS AND STOPPING THE BLEEDING FOR THE NEXT 24 HOURS (1 DAY) AFTER THE EXTRACTION: DO NOT RINSE YOUR MOUTH OR SPIT 2. DO NOT DRINK ANY HOT LIQUIDS SUCH SOUP, COFFEE, TEA, HOT CHOCOLATE AVOID HEAVY LIFTING, BENDING OR OTHER STENUOUS EXERCISES SLEEP WITH 2 PILLOWS OR IN A RECLINER CHAIR. KEEPING HEAD ELEVATED WILL REDUCE SWELLING. SUTURE WILL DISSOLVE IN 7-10 DAYS FOR THE NEXT 72 HOURS (3 DAYS) AFTER THE EXTRACTION: DO NOT SMOKE OR DRINK ALCOHOL DO NOT DRINK OR SUCK FROM A STRAW OR ANYTHING ELSEDO NOT DRINK. Stitches may have been placed to help healing. Your surgeon will advise you if you need to return to have them removed. TOOTH BRUSHING On the day of the extraction it is best to avoid brushing the teeth right next to the extraction site. On the next day you can start brushing ALL your teeth but in a gentle fashion. Remember to not rinse strongly because it may cause you to start bleeding from the extraction site again. SWELLING AND PAIN After the extraction you may feel some pain and experience some swelling. An ice pack of unopened bag of frozen peas of corn applied to the area should keep the swelling down. Put the ice pack on you face for 10 minutes and then leave it off for the next 20 minutes. You can repeat this patter as you feel is necessary for up to 24 hours after the extraction. To avoid injury, make sure that adults or children avoid biting or chewing on their lips of cheeks, which may be numb following an extraction. If your pain or swelling seems to be getting worse or you feel as though something is not right then call your dentist, as directed above. ANTIBIOTICS AND PAIN MEDICATION If antibiotics have been prescribed then you should take them as directed; this includes taking all the antibiotic (or liquid) pills that were prescribed. If you don't finish them completely a serious infection could result. You may have little of no discomfort after the extraction. If you have minor pain then you may want to take acetaminophen (Tylenol) or ibuprofen (Motrin). It is very important that before taking any medications that you read and follow the directions and warnings that come with these products so you know whether they are right for you and you situation. If you have any questions on whether these medications are right for you, first talk to your doctor or pharmacist before taking the medication. Your surgeon may have given you a written prescription for pain relief. It is important that if you decide to take it you read and understand all the precautions, warnings and directions that come with the medication. If you have any questions on whether the medication is right for you, first talk to your doctor or pharmacist before taking the medication. The pain medication prescription that your dentist gave you may contain a narcotic (like codeine). If so, most narcotic pain medications may upset your stomach. If so, then it is best to take them with food. The pain medication prescription that you were given can also make you drowsy or make you act strangely. If so, you should limit or stop activities such as driving a motor vehicle, operate machinery or other activities that require your full attention. EATING AND DRINKING A soft or liquid diet may be best for you after a difficult extraction. For a simpler extraction just make sure you do your chewing with those teeth that are NOT near the extraction site. POSTOPERATIVE INSTRUCTION AFTER SEDATION / GENERAL ANESTHESIA If you had general anesthesia of IV sedation, do not drive or operate machinery for 24 hours. A responsible adult should be with you for the remainder of the day. When starting oral intake, be sure to consume CLEAR LIQUIDS first. Clear liquids consist of water, Sprite, gloria candelaria, Jell-O, and non-pulp containing juices such as cranberry and apple juice. Once tolerating clear-liquids, you may advance your diet. Be sure to follow the specific diet instructions from your doctor according to the type of surgery you have had. It is important that you take any narcotic containing pain medications with food. Patients should not participate in any strenuous activity. Standing and sitting up too quickly following surgery can also result in dizziness and exacerbate these problems. It is also important that patients be supervised for an appropriate amount of time following sedation in order to ensure that they remain safe in the post-operative period. Under NO circumstances should a patient drive the day of surgery or participate in any important decisions. NAUSEA & VOMITING Nausea is not uncommon after surgery. Sometimes pain medications may be the cause. In the event of nausea and/or vomiting following surgery, do not take anything by mouth for at least an hour including the prescribed medicine. You should then sip on Coke, tea, or gloria candelaria. You should sip slowly over a 15-minute period. When the nausea subsides, you can begin taking solid foods and the prescribed medicine. You may take the anti-nausea medication if prescribed. If the above is not helpful, contact your surgeon. Please if you have any questions or concerns please contact us: [facility] . Ask for the behavioral health assistant ship's electronic warfare officer (after hours). rn outpatient surgery Clinic Hours: Mon-Fri 8:30 am to 4:30 pm. documented in this encounter [facility] 09-14-2023 History of Present illness Narrative ORAL SURGERY PROCEDURE ROOM NOTE [facility] Surgical Product(s): Routine extraction teeth # 21, # 22, # 23, # 24, # 25, # 26, # 27, and # 29 and Alveoloplasty RLQ and LLQ PMH: Reviewed, no change. Antibiotic prophylaxis indicated/taken: no Discussed risks, benefits, and alternatives of treatment. All of the patient s questions were answered, and informed consent was obtained: yes Pre-op Diagnosis: Caries PROCEDURE TIME OUT CHECK LIST 1. Radiograph is correctly matched to the patient,diagnostic quality, correctly oriented for laterality: Yes 2. Time out performed confirming correct surgical site and/or involved teeth verified by the patient and the surgeon: Yes Anesthesia: 20% topical Benzocaine paste on oral mucosa, 2% Xylocaine with 1/100,000 epinephrine: 2 carpules, 0.5% Bupivicaine: 2 carpules, and 4% Articaine with 1/100,000 epinephrine 2 carpules, infiltration administration only Attending: Rony Arriaza DMD, MD Resident: Jacqui Glass DDS Assistants: GUEVARA Peterson Procedure in Detail: LA was administered via b/L IA, mental nerve blocks and local infiltration. No positive aspiration observed. For pharyngeal protection a throat screen was inserted prior to oral instrumentation and subsequently removed upon completion of procedure. 15 blade utilized to create sulcular and distal releasing incisions. Periosteal elevator developed FTMP flap mucoperiosteal cuff around teeth #21, 22, 23, 24, 25, 26, 27, and 29. Standard elevator and forceps extraction teeth # #21, 22, 23, 24, 25, 26, 27, and 29. Alveoloplasty achieved in RLQ and LLQ with rongeurs and bone files to eliminate irregular bony contours. Inspected sockets, followed by curettage. Wound irrigation with NS. 3-0 chromic gut sutures placed to re-approximate tissues. Patient instructed to bite on gauze for hemostasis. Hemostasis verified prior to dismissal. Verbal and written postop instructions were given to patient. Rx given for Motrin, Tylenol, Peridex. Complications: none Specimens: Intact teeth Estimated blood loss: Minimal (<5 ml) Disposition: longterm Referral placed for General Dentistry Jacqui Glass DDS Associated attestation - Rony Arriaza DMD, MD - 10/11/2023 1:24 PM EDT I was personally present for the white portions of the procedure. Rony Arriaza DMD, MD documented in this encounter [facility] 09-06-2023 History of Present illness Narrative OMFS PATIENT VISIT CHIEF COMPLAINT: Pain HISTORY OF PRESENT ILLNESS: A 67 yo male with PMHx Coronary artery disease s/pCABG 2014, [facility]- showing patent GREY to the LAD 2017. LV function normal 04/2012, Angina, Acute kidney injury (HCC),CAD in [place] artery, MINERVA, COPD, Developmental disorder, Diabetes, GERD, Hyperlipidemia, IBS (irritable bowel syndrome),Obesity, Osteoarthritis [place] [facility] [place] external referral for removal of lower teeth # 29, #27, #26, # 25, # 24, #23, # 22 and #21. Pt endorses waxing and waning pain originating from the teeth listed on the referral for pain that limits her ability to chew, function normally, and perform oral hygiene. Patient denies f/c, n/v, odynophagia, dysphagia, or SOB. PAST MEDICAL HISTORY: No past medical history on file. Patient Active Problem List: Age-related cataract of both eyes [H25.9] Anemia [D64.9] Angina at rest [I20.89] Chest pain [R07.9] Anxiety state [F41.1] Arthritis of foot, degenerative [M19.079] Primary osteoarthritis of right foot [M19.071] Atherosclerosis of coronary artery without angina pectoris [I25.10] CAD in [place] artery [I25.10] Cataract, nuclear sclerotic, both eyes [H25.13] Chronic combined systolic (congestive) and diastolic (congestive) heart failure (HCC) [I50.42] Chronic pulmonary edema (HCC) [J81.1] Chronic respiratory failure with hypoxia (HCC) [J96.11] Colitis [K52.9] Colitis, collagenous [K52.831] Combined form of senile cataract [H25.819] COPD (chronic obstructive pulmonary disease) (HCC) [J44.9] Dyslipidemia [E78.5] Benign prostatic hyperplasia without urinary obstruction [N40.0] Enlarged prostate with lower urinary tract symptoms (LUTS) [N40.1] Esophagitis, reflux [K21.00] Gastroesophageal reflux disease without esophagitis [K21.9] Generalized anxiety disorder [F41.1] Hiatal hernia [K44.9] Hyperlipidemia [E78.5] Hypertensive heart disease [I11.9] Hypertensive heart disease with heart failure (HCC) [I11.0] Irritable bowel syndrome with constipation [K58.1] Irritable bowel syndrome [K58.9] Knee osteoarthritis [M17.9] Osteoarthritis of multiple joints [M15.9] Polyosteoarthritis, unspecified [M15.9] Knee pain, bilateral [M25.561, M25.562] care home (current) use of antibiotics [Z79.2] Low back pain [M54.50] Major depressive disorder, recurrent, mild ([facility]) [F33.0] Morbid obesity ([facility]) [E66.01] Obesity [E66.9] Nonexudative age-related macular degeneration, bilateral, early dry stage [H35.3131] MINERVA (obstructive sleep apnea) [G47.33] Other specified disorders of bone density and structure, left hand [M85.842] Papilloma of left upper eyelid [D23.121] Patient's noncompliance with other medical treatment and regimen due to unspecified reason [Z91.199] Peripheral vascular disease, unspecified ([facility]) [I73.9] Personal history of COVID-19 [Z86.16] Pseudomonas aeruginosa infection [A49.8] Respiratory failure ([facility]) [J96.90] Shoulder pain, left [M25.512] Spondylosis without myelopathy [M47.819] Tobacco abuse [Z72.0] Type 2 diabetes mellitus treated with insulin ([facility]) [E11.9, Z79.4] Type 2 diabetes mellitus with chronic kidney disease ([facility]) [E11.22] Type 2 diabetes mellitus with diabetic polyneuropathy ([facility]) [E11.42] Uncontrolled type 2 diabetes mellitus with hyperglycemia, with long-term current use of insulin ([facility]) [E11.65, Z79.4] Unspecified dementia, moderate, with psychotic disturbance [F03.B2] Vitamin D deficiency, unspecified [E55.9] Sternal wound dehiscence [T81.32XA] Wound disruption, post-op, skin, initial encounter [T81.31XA] REVIEW OF SYSTEMS: A 12-point review of systems was completed. Negative unless otherwise stated in HPI. MEDICATIONS: Current Outpatient Medications Medication Sig Dispense Refill pantoprazole (Protonix) 40 MG tablet 1 tab(s) orally once a day trimethoprim-polymyxin b (POLYTRIM) 63801-9.1 UNIT/ML-% ophthalmic solution bbpadxb-jqrpnm-lclmcdyi (CREON) 15668 units capsule Take by mouth. oxyCODONE-acetaminophen (ROXICET) 5-325 MG/5ML oral solution Take by mouth every 6 hours as needed. simethicone (GAS-X) 80 MG chewable tablet 1 tab(s) chewed 4 times a day (after meals and at bedtime) tramadol (ULTRAM) 50 MG tablet tizanidine (Zanaflex) 2 MG capsule 2 cap(s) orally every 8 hours insulin glargine (Lantus) 100 UNIT/ML injection 44 units subcutaneously once a day Lantus SoloStar 100 UNIT/ML pen insulin lispro (HumaLOG) 100 UNIT/ML injection 10-14 units subcutaneously 3 times a day HumaLOG KwikPen 100 UNIT/ML lisinopril (ZESTRIL) 5 MG tablet 1 tab(s) orally once a day lovastatin (MEVACOR) 40 MG tablet Take 40 mg by mouth at bedtime. clindamycin (CLEOCIN) 150 MG capsule Take 150 mg by mouth 4 times daily. Continuous Glucose Systems Software Manager (FreeStyle [place]) vitamin B-12 (CYANOCOBALAMIN) 1000 MCG/ML injection Inject 1,000 mcg into the muscle once weekly. dicyclomine (BENTYL) 10 MG capsule Take 10 mg by mouth 3 times daily. Banophen 25 MG capsule Docusate Sodium (DSS) 100 MG CAPS Take 100 mg by mouth 2 times daily. Trulicity 4.5 MG/0.5ML injection pen empagliflozin (JARDIANCE) 25 MG TABS tablet Take 25 mg by mouth daily. Jardiance 10 MG tablet vitamin D2 ergocalciferol (DRISDOL) 1.25 MG (54178 UT) capsule Take 1.25 mg by mouth once weekly. Zetia 10 MG tablet 1 tab(s) orally once a day famotidine (PEPCID) 20 MG tablet fenofibrate (TRIGLIDE) 160 MG tablet 1 tab(s) orally once a day ferrous sulfate 325 (65 Fe) MG enteric coated tablet Take 325 mg by mouth 2 times daily. finasteride (PROSCAR) 5 MG tablet fluticasone (FLONASE) 50 mcg/act nasal inhaler 1 [place] daily. Advair Diskus 250-50 MCG/ACT inhaler gabapentin (NEURONTIN) 800 MG tablet 1 tab(s) orally 3 times a day atorvastatin (LIPITOR) 80 mg tablet Take 80 mg by mouth daily. azithromycin (ZITHROMAX) 250 MG tablet bisacodyl (DULCOLAX) 5 MG enteric coated tablet Take 5 mg by mouth daily as needed. carboxymethylcellulose (REFRESH PLUS) 0.5 % SOLN ophthalmic solution 1 Drop by Ophthalmic route as needed. carisoprodol (SOMA) 350 MG tablet TIT PO TID FOR 28 DAYS CARvedilol (COREG) 6.25 MG tablet Take 6.25 mg by mouth 2 times daily (with meals). cephALEXin (KEFLEX) 500 MG capsule cholestyramine (QUESTRAN) 4 g packet Take 1 Packet by mouth. cilostazol (PLETAL) 50 MG tablet Take 50 mg by mouth 2 times daily. No current facility-administered medications for this visit. ALLERGIES: Penicillins and Tetracycline SURGICAL HX: CHOLECYSTECTOMY 03/29/2016 COLONOSCOPY 05/23/2017 HEMORRHOID SURGERY 1998 CORONARY ARTERY BYPASS GRAFT SOCIAL HX: Tobacco Use Alcohol use: No Alcohol/week: 0.0 standard drinks of alcohol Drug use: No CLINICAL EXAMINATION Extraoral examination: No significant findings No s/s of infection, redness or tenderness to palpation No facial asymmetry or swelling No appreciable LAD No popping/clicking/crepitus of TMJ b/l No tenderness to palpation of temporalis or masseter asymptomatic function Range of motion WNL CN V and VII intact Intraoral examination: No s/s of infection or tenderness to palpation Moist, pink mucosa Oropharynx clear No pathological soft lesions appreciated Oral cancer screen negative Occlusion stable Oral hygiene fair RADIOGRAPHIC INTERPRETATION: Pan[employer]x Film taken on 09/05/2023 and Retained in our clinic files. I have viewed and interpreted the [employer] . There is no appreciable TMJ pathology. Caries and periodontal pathology of teeth # 29, #27, #26, # 25, # 24, #23, # 22 and #21. DIAGNOSIS: Caries [[id number]] ASSESSMENT: A 67 yo male with PMHx Coronary artery disease s/pCABG 2014, [facility]- showing patent GREY to the LAD 2017. LV function normal 04/2012, Angina, Acute kidney injury (HCC),CAD in [place] artery, MINERVA, COPD, Developmental disorder, Diabetes, GERD, Hyperlipidemia, IBS (irritable bowel syndrome),Obesity, Osteoarthritis [place] [facility] [place] external referral for removal of lower teeth # 29, #27, #26, # 25, # 24, #23, # 22 and #21. PLAN: Our treatment plan to do extractions for teeth # 29, #27, #26, # 25, # 24, #23, # 22 and #21 and alveoplasty under [place] [facility]. Jb De Souza DDS Associated attestation - Rony Arriaza DMD, MD - 09/29/2023 9:41 AM EDT Teaching Physician Note: I saw and evaluated the patient. I personally obtained the white and critical portions of the history and physical exam. I reviewed the resident's documentation and discussed the patient with the resident. I agree with the resident's medical decision making as documented in the resident's note. Rony Arriaza DMD, MD Images from the original note were not included. documented in this encounter [facility] 08-21-2023 History of Present illness Narrative [facility] Cardiology [facility] [address] [place] [id number] Dept: [phone] Dept Visit type: Established : 1955 DATE of SERVICE: 08/21/2023 Chief Complaint: Chief Complaint Patient presents with 6 Month Follow-up Coronary Artery Disease History of Present Illness: James Reyes is a 67 y.o. male who presents today for routine follow-up regarding his coronary artery disease, previous bypass surgery in 2014, hyperlipidemia. He is accompanied by flat drier. Patient lives in assisted living at [facility]. He denies chest pain, palpitations dizziness lightheadedness or syncope. He was seen in in June by Mingo Gavin who ordered a dobutamine stress echocardiogram which was normal. There was no evidence of ischemia. Previous cardiac catheter 2017 showed patent GREY to the LAD. Patient's biggest complaint is arthralgias in his right knee. He is scheduled to see an orthopedic surgeon at [facility]. Apparently they are planning to try radiofrequency ablation of his pain nerves in his right knee. Past Medical History: Past Medical History: Diagnosis Date Acute kidney injury (HCC) 09/11/2015 CAD in [place] artery 08/08/2017 COPD (chronic obstructive pulmonary disease) ([facility]) Developmental disorder Diabetes mellitus ([facility]) Esophageal reflux Gastritis see EGD on 03/29/2016 GERD (gastroesophageal reflux disease) Hyperlipidemia IBS (irritable bowel syndrome) Mixed Obesity Osteoarthritis Pain management Plantar fasciitis, bilateral Unspecified sleep apnea Urinary retention Past Surgical History Past Surgical History: Procedure Laterality Date CHOLECYSTECTOMY 03/29/20162010 COLONOSCOPY 05/23/2017 COLONOSCOPY 03/29/2016, repeat in 10 years, Dr. Ness, normal except internal hemorrhoid COLONOSCOPY N/A 07/18/2022 Performed by David Chen MD at [facility] [place] CORONARY ARTERY BYPASS GRAFT FOOT SURGERY Left 2014 HEMORRHOID SURGERY 1997 INNER EAR SURGERY tube placement in ears LAYERED WOUND CLOSURE N/A 10/16/2017 sternal wound debridment and closure with wound vac OTHER SURGICAL HISTORY 10/24/2017 I&D sternal wound with flap OTHER SURGICAL HISTORY punching bag removal THYROID SURGERY nodule removal 2010 TONSILLECTOMY (HISTORICAL) UPPER GASTROINTESTINAL ENDOSCOPY 04/01/2016 gastritis, duodentitis WISDOM TOOTH EXTRACTION Family History Family History Problem Relation Name Age of Onset Heart attack Mother 61.00 Heart disease Father Other ([id number]) Brother accident Coronary artery disease Father Diabetes Father Social History Social History Tobacco Use Smoking status: Every Day Packs/day: 1 Types: Cigarettes Start date: 04/28/1973 Smokeless tobacco: Never Substance Use Topics Alcohol use: No Alcohol/week: 0.0 standard drinks of alcohol Drug use: No Allergies: Allergies Allergen Reactions Penicillins Other reaction(s): Other (See Comments), Unknown unknown Tetracyclines & Related Other reaction(s): Other (See Comments), Unknown unknown Medications: Current Outpatient Medications: acetaminophen (Tylenol) 325 MG tablet, Take 650 mg by mouth every 6 hours as needed., Disp: , Rfl: Advair Diskus 250-50 MCG/ACT aerosol powder , , Disp: , Rfl: albuterol (2.5 MG/3ML) 0.083% nebulizer solution, Inhale 2.5 mg., Disp: , Rfl: albuterol 108 (90 Base) MCG/ACT inhaler, Inhale 2 puffs every 6 hours as needed., Disp: , Rfl: aspirin 81 MG chewable tablet, Chew 81 mg in the morning., Disp: , Rfl: atorvastatin (Lipitor) 80 MG tablet, Take 80 mg by mouth in the morning., Disp: , Rfl: carvedilol (Coreg) 6.25 MG tablet, Take 1 tablet (6.25 mg) by mouth in the morning and 1 tablet (6.25 mg) in the evening. Take with meals., Disp: 180 tablet, Rfl: 3 cholestyramine (Questran) 4 g packet, Take 1 packet by mouth in the morning and 1 packet at noon and 1 packet in the evening. Take with meals., Disp: , Rfl: cilostazol (Pletal) 50 MG tablet, Take 50 mg by mouth 2 times daily., Disp: , Rfl: clindamycin (Cleocin) 150 MG capsule, Take 150 mg by mouth in the morning and 150 mg at noon and 150 mg in the evening and 150 mg before bedtime., Disp: , Rfl: dicyclomine (Bentyl) 10 MG capsule, Take 10 mg by mouth 3 times daily., Disp: , Rfl: empagliflozin (Jardiance) 25 MG, Take 25 mg by mouth daily., Disp: , Rfl: ergocalciferol (Vitamin D-2) 1.25 MG (78853 UT) capsule, Take 1.25 mg by mouth 1 (one) time per week. Every Monday, Disp: , Rfl: ezetimibe (Zetia) 10 MG tablet, Take 10 mg by mouth Nightly., Disp: , Rfl: famotidine (Pepcid) 20 MG tablet, Take 20 mg by mouth in the morning., Disp: , Rfl: finasteride (Proscar) 5 MG tablet, Take 5 mg by mouth in the morning., Disp: , Rfl: fluticasone (Flonase) 50 MCG/ACT nasal spray, Administer 1 spray into each nostril daily. Shake gently. Before first use, prime pump. After use, clean tip and replace cap., Disp: , Rfl: insulin glargine (Lantus) 100 UNIT/ML injection, Inject 48 Units under the skin in the morning., Disp: , Rfl: Insulin Lispro (Humalog) 100 UNIT/ML solution injection, Inject 16 Units under the skin in the morning and 16 Units at noon and 16 Units in the evening., Disp: , Rfl: nabumetone (Relafen) 500 MG tablet, Take 500 mg by mouth 2 times daily., Disp: , Rfl: nitroglycerin (Nitrostat) 0.4 MG SL tablet, Place 0.4 mg under the tongue every 5 minutes as needed for chest pain., Disp: , Rfl: pancrelipase, Got-Eazq-Yxza, (Creon) 31665-20337 units capsule, Take by mouth 3 times daily (with meals)., Disp: , Rfl: pregabalin (Lyrica) 150 MG capsule, Take 150 mg by mouth 2 times daily., Disp: , Rfl: tamsulosin (Flomax) 0.4 MG 24 hr capsule, Take 0.4 mg by mouth in the morning and 0.4 mg in the evening., Disp: , Rfl: tiotropium (Spiriva) 18 MCG inhalation capsule, Place 1 capsule into inhaler and inhale in the morning., Disp: , Rfl: nystatin (Mycostatin) cream, , Disp: , Rfl: Review of Systems: Review of Systems Constitutional: Negative for activity change, chills, diaphoresis, fatigue and fever. HENT: Negative for nosebleeds and trouble swallowing. Eyes: Negative for discharge and visual disturbance. Respiratory: Negative for apnea, cough, chest tightness, shortness of breath and wheezing. Cardiovascular: Negative for chest pain, palpitations and leg swelling. Gastrointestinal: Negative for abdominal distention, abdominal pain, blood in stool, diarrhea, nausea and vomiting. Endocrine: Negative for cold intolerance and heat intolerance. Genitourinary: Negative for hematuria. Musculoskeletal: Positive for arthralgias and gait problem. Negative for myalgias. Skin: Negative for color change and rash. Neurological: Negative for dizziness, seizures, syncope, facial asymmetry, speech difficulty, weakness, light-headedness, numbness and headaches. Hematological: Does not bruise/bleed easily. Psychiatric/Behavioral: Negative for dysphoric mood. Physical Examination: Vitals: Vitals: 08/21/23 1008 BP: 108/62 BP Location: Right arm Patient Position: Sitting BP Cuff Size: Large adult Pulse: 56 SpO2: 93% Height: 6' 1" (1.854 m) Body mass index is 36.41 kg/m . Physical Exam Vitals reviewed. Constitutional: Appearance: Normal appearance. He is normal weight. HENT: Head: Normocephalic and atraumatic. Right Ear: External ear normal. Left Ear: External ear normal. Nose: Nose normal. Eyes: Extraocular Movements: Extraocular movements intact. Conjunctiva/sclera: Conjunctivae normal. Neck: Vascular: No carotid bruit. Cardiovascular: Rate and Rhythm: Normal rate and regular rhythm. Heart sounds: No murmur heard. No gallop. Pulmonary: Effort: Pulmonary effort is normal. Breath sounds: Normal breath sounds. No wheezing. Abdominal: General: Bowel sounds are normal. Palpations: Abdomen is soft. Musculoskeletal: General: No swelling. Normal range of motion. Cervical back: Neck supple. Right lower leg: No edema. Left lower leg: No edema. Skin: General: Skin is warm and dry. Neurological: General: No focal deficit present. Mental Status: He is alert and oriented to person, place, and time. Psychiatric: Mood and Affect: Mood normal. Behavior: Behavior normal. Laboratory Tests: Lab Results Component Value Date WBC 5.6 04/24/2023 HGB 10.5 (L) 04/24/2023 HCT 31.7 (L) 04/24/2023 MCV 88.9 04/24/2023 PLT 166 04/24/2023 Lab Results Component Value Date GLUCOSE 189 (H) 04/24/2023 CALCIUM 8.7 04/24/2023 NA 140 04/24/2023 K 4.4 04/24/2023 CO2 25 04/24/2023 CL 107 04/24/2023 BUN 19 04/24/2023 CREATININE 0.80 04/24/2023 Lab Results Component Value Date NA 140 04/24/2023 K 4.4 04/24/2023 CL 107 04/24/2023 CO2 25 04/24/2023 BUN 19 04/24/2023 CREATININE 0.80 04/24/2023 GLUCOSE 189 (H) 04/24/2023 CALCIUM 8.7 04/24/2023 PROT 5.7 (L) 04/24/2023 BILITOT 0.2 04/24/2023 ALKPHOS 78 04/24/2023 AST 14 (L) 04/24/2023 ALT 15 04/24/2023 Lab Results Component Value Date CREATININE 0.80 04/24/2023 CREATININE 0.86 04/23/2023 CREATININE 1.71 (H) 04/13/2022 Lab Results Component Value Date CHOL 82 04/24/2023 CHOL 113 04/13/2022 Lab Results Component Value Date TRIG 89 04/24/2023 TRIG 143 04/13/2022 Lab Results Component Value Date HDL 37 (L) 04/24/2023 HDL 40 04/13/2022 Lab Results Component Value Date LDLCALC 27 04/24/2023 LDLCALC 44 04/13/2022 NT PRO BNP Date Value Ref Range Status 04/13/2022 127 (H) 0 - 125 pg/mL Final Cardiac Tests: EC08/21/23 Last Echo: Last stress echo test: 07/14/23 Last cardiac catheterization: 08/07/17 Assessment and Plan: 1. CAD in [place] artery 2. Dyslipidemia James Reyes is warm and dry on exam. His lipids are well-controlled. He has no angina, had a recent negative dobutamine stress echocardiogram with normal ejection fraction. No diagnostic or therapeutic intervention is recommended. If the patient needs to undergo knee replacement he may proceed at the low cardiac risk. Follow-up will be in 6 months with a nurse practitioner. I reviewed my assessment and plan with James Reyes . All questions were answered. NOTE: This report was transcribed using voice recognition software. Every effort was made to ensure accuracy; however, inadvertent computerized primary school teacher errors may be present. documented in this encounter [facility] 07-13-2023 Nurse Note Spoke with nurse from [email or web address] [facility]. Pt has DSE tomorrow, please hold beta sonny for 24 hours and have pt NPO for 4 hours prior. [facility] 07-13-2023 Nurse Note [facility]. Pt has DSE tomorrow, please hold beta sonny for 24 hours and have pt NPO for 4 hours prior. documented in this encounter [facility] 06-06-2023 Note HNO ID: [id number] Author: MARIXA STEPHENS MD Service: ? Author Type: Physician Type: Progress Notes Filed: 06/06/2023 11:38 Note Text: (E11.9) Type 2 diabetes mellitus without retinopathy (HCC) (primary encounter diagnosis) (H35.1761) Nonexudative age-related macular degeneration, bilateral, early dry stage (H25.13) Cataract, nuclear sclerotic, both eyes No evident diabetic retinopathy or Diabetic macular edema. Discussed diabetes, potential impact on eye and vision, and importance of glucose control. Continue follow-up with primary care physician to manage diabetes. At present recommend continue observation management of cataract. Discussed macular degeneration. Wear sunglasses, do not smoke, include green leafy vegetables in diet. Continue with current glasses. Discussed findings, plan and answered questions. Follow-up in 1 year complete. Encouraged patient to contact our office should there be any further questions, concerns, or change in symptoms. I have confirmed and edited as necessary the relevant HPI, ophthalmic history, ROS, and the neuro exam findings as obtained by others. I have seen and examined James Cook Zechariah I have discussed the case and the management of this patient's care with the Resident/Fellow, if applicable. I also have reviewed and agree with the assessment and plan as stated above and agree with all of its relevant components. [facility] 06-06-2023 History of Present illness Narrative (E11.9) Type 2 diabetes mellitus without retinopathy (HCC) (primary encounter diagnosis) (H35.3131) Nonexudative age-related macular degeneration, bilateral, early dry stage (H25.13) Cataract, nuclear sclerotic, both eyes No evident diabetic retinopathy or Diabetic macular edema. Discussed diabetes, potential impact on eye and vision, and importance of glucose control. Continue follow-up with primary care physician to manage diabetes. At present recommend continue observation management of cataract. Discussed macular degeneration. Wear sunglasses, do not smoke, include green leafy vegetables in diet. Continue with current glasses. Discussed findings, plan and answered questions. Follow-up in 1 year complete. Encouraged patient to contact our office should there be any further questions, concerns, or change in symptoms. I have confirmed and edited as necessary the relevant HPI, ophthalmic history, ROS, and the neuro exam findings as obtained by others. I have seen and examined James Reyes I have discussed the case and the management of this patient's care with the Resident/Fellow, if applicable. I also have reviewed and agree with the assessment and plan as stated above and agree with all of its relevant components. documented in this encounter [facility] 05-12-2023 History of Present illness Narrative Images from the original note were not included. [facility] [address] [facility] [address] Dept: [phone] Dept Visit type: Established : 1955 Reason for Visit: Hospital follow up for Chest pain Assessment and Plan 1.Chest pain- in setting of history of Coronary artery disease s/pCABG 2014, [facility]- showing patent GREY to the LAD 2017. LV function normal 04/2012 Presentation was atypical, no concern for ACS, neg troponin x 3, Recommended Vasodilator nuclear stress test given his history of CAD and 6 years past last Heart cath- Patient refused stress test while in hospital and wanted to be discharged. Recommend to have exercise stress test as OP- pt in agreement to have testing at [facility] Continues on medical management; ASA, carvedilol and Lipitor 2. Hyperlipidemia Well controlled by recent lab work 04/24/23 LDL <70, TGs 89 Continues on high intensity statin and ezetimibe 3 MINERVA DM2 Management per primary Recently started on Jardiance 4. Tobacco use Recommend cessation. Pt states trying to quit Follow up [address] Corcoran Nuclear stress imaging Subjective HPI James Reyes is a 67 y.o.year-old male who presented to the ED 04/23/23 for chest pain. PMHx significant for coronary artery disease s/p CABG in 2014, GERD. Hyperlipidemia, CKD, MINERVA, DM2, COPD and tobacco abuse. He currently resides at [facility] in [place]. The patient reports he began to have nonexertional sharp chest pain along with sharp pain in left upper arm. States that he was smoking a cigarette at the time of the onset of the pain . He had been recently seen in the office with Dr Corcoran on 02/22/23 . At that time he reported one episode of non exertional of mid sternal chest discomfort without any other associated constitutional symptoms that quickly resolved. He was started on Carvedilol. In the ED initial EKG showed sinus rhythm with nonspecific interventricular conduction delay. Troponin x 3 were negative. Chest xray showed no acute findings. Labs showed BMP with hyperglycemia 217, CBC without leukocytosis or leukopenia and hemoglobin 11.5. Today the patient reports that he has mid sternal chest pain described as faint. Associated symptom with left shoulder pain daily. He denies shortness of breath, palpitations, dizziness or lightheadedness. No syncope or presyncope, Review of Systems Cardiovascular: Positive for chest pain and leg swelling. Mid center with left shoulder pain Musculoskeletal: Positive for arthralgias. Arthritis pain Right knee pain d/t bone on bone Neurological: Positive for weakness. Uses walker, not able to walk for long Allergies Allergen Reactions Penicillins Other reaction(s): Other (See Comments), Unknown unknown Tetracyclines & Related Other reaction(s): Other (See Comments), Unknown unknown Outpatient Medications Prior to Visit Medication Sig Dispense Refill acetaminophen (Tylenol) 325 MG tablet Take 650 mg by mouth every 6 hours as needed. Advair Diskus 250-50 MCG/ACT aerosol powder albuterol (2.5 MG/3ML) 0.083% nebulizer solution Inhale 2.5 mg. albuterol 108 (90 Base) MCG/ACT inhaler Inhale 2 puffs every 6 hours as needed. aspirin 81 MG chewable tablet Chew 81 mg in the morning. atorvastatin (Lipitor) 80 MG tablet Take 80 mg by mouth in the morning. carvedilol (Coreg) 6.25 MG tablet Take 1 tablet (6.25 mg) by mouth in the morning and 1 tablet (6.25 mg) in the evening. Take with meals. 180 tablet 3 cholestyramine (Questran) 4 g packet Take 1 packet by mouth in the morning and 1 packet at noon and 1 packet in the evening. Take with meals. dicyclomine (Bentyl) 10 MG capsule Take 10 mg by mouth 3 times daily. dulaglutide (Trulicity) 4.5 MG/0.5ML solution pen-injector Inject 4.5 mg under the skin 1 (one) time per week. Every Monday ergocalciferol (Vitamin D-2) 1.25 MG (32642 UT) capsule Take 1.25 mg by mouth 1 (one) time per week. Every Monday ezetimibe (Zetia) 10 MG tablet Take 10 mg by mouth Nightly. famotidine (Pepcid) 20 MG tablet Take 20 mg by mouth in the morning. finasteride (Proscar) 5 MG tablet Take 5 mg by mouth in the morning. fluticasone (Flonase) 50 MCG/ACT nasal spray Administer 1 spray into each nostril daily. Shake gently. Before first use, prime pump. After use, clean tip and replace cap. insulin glargine (Lantus) 100 UNIT/ML injection Inject 44 Units under the skin in the morning. Insulin Lispro (Humalog) 100 UNIT/ML solution injection Inject 16 Units under the skin in the morning and 16 Units at noon and 16 Units in the evening. nabumetone (Relafen) 500 MG tablet Take 1,000 mg by mouth 2 times daily. nystatin (Mycostatin) cream pancrelipase, Fdg-Ybgd-Aeid, (Creon) 15302-60088 units capsule Take by mouth 3 times daily (with meals). pregabalin (Lyrica) 75 MG capsule Take 150 mg by mouth 2 times daily. tamsulosin (Flomax) 0.4 MG 24 hr capsule Take 0.4 mg by mouth in the morning and 0.4 mg in the evening. tiotropium (Spiriva) [address] 1 capsule into inhaler and inhale in the morning. No facility-administered medications prior to visit. Past Medical History: Diagnosis Date Acute kidney injury (HCC) 09/11/2015 CAD in [place] artery 08/08/2017 COPD (chronic obstructive pulmonary disease) (HCC) Developmental disorder Diabetes mellitus ([facility]) Esophageal reflux Gastritis see EGD on 03/29/2016 GERD (gastroesophageal reflux disease) Hyperlipidemia IBS (irritable bowel syndrome) Mixed Obesity Osteoarthritis Pain management Plantar fasciitis, bilateral Unspecified sleep apnea Urinary retention Social History Tobacco Use Smoking status: Every Day Packs/day: 1 Types: Cigarettes Start date: 04/28/1973 Smokeless tobacco: Never Substance Use Topics Alcohol use: No Alcohol/week: 0.0 standard drinks of alcohol Past Surgical History: Procedure Laterality Date CHOLECYSTECTOMY 03/29/20162010 COLONOSCOPY 05/23/2017 COLONOSCOPY 03/29/2016, repeat in 10 years, Dr. Ness, normal except internal hemorrhoid COLONOSCOPY N/A 07/18/2022 Performed by David Chen MD at [facility] OR CORONARY ARTERY BYPASS GRAFT FOOT SURGERY Left 2015 HEMORRHOID SURGERY 1997 INNER EAR SURGERY tube placement in ears LAYERED WOUND CLOSURE N/A 10/16/2017 sternal wound debridment and closure with wound vac OTHER SURGICAL HISTORY 10/24/2017 I&D sternal wound with flap OTHER SURGICAL HISTORY punching bag removal THYROID SURGERY nodule removal 2010 TONSILLECTOMY (HISTORICAL) UPPER GASTROINTESTINAL ENDOSCOPY 04/01/2016 gastritis, duodentitis WISDOM TOOTH EXTRACTION Family History Problem Relation Name Age of Onset Heart attack Mother 61.00 Heart disease Father Other ([id number]) Brother accident Coronary artery disease Father Diabetes Father Objective Vitals: 05/12/23 1001 BP: 104/60 BP Location: Left arm Patient Position: Sitting BP Cuff Size: Adult Pulse: 62 SpO2: 98% Weight: 276 lb (125 kg) Height: 6' 1" (1.854 m) Physical Exam Constitutional: General: He is not in acute distress. Appearance: He is obese. He is ill-appearing. He is not diaphoretic. HENT: Head: Normocephalic. Nose: Nose normal. Eyes: Conjunctiva/sclera: Conjunctivae normal. Pupils: Pupils are equal, round, and reactive to light. Cardiovascular: Rate and Rhythm: Normal rate and regular rhythm. Chest Wall: PMI is not displaced. Pulses: Radial pulses are 2+ on the right side and 2+ on the left side. Femoral pulses are 2+ on the right side and 2+ on the left side. Dorsalis pedis pulses are 2+ on the right side and 2+ on the left side. Posterior tibial pulses are 2+ on the right side and 2+ on the left side. Heart sounds: Normal heart sounds, S1 normal and S2 normal. Heart sounds not distant. No murmur heard. No systolic murmur is present. No diastolic murmur is present. No S3 or S4 sounds. Pulmonary: Effort: Pulmonary effort is normal. Breath sounds: Normal breath sounds. Abdominal: General: Bowel sounds are normal. Musculoskeletal: General: Normal range of motion. Cervical back: Normal range of motion. Right lower leg: Edema present. Left lower leg: No edema. Comments: Ankle and calf Lymphadenopathy: Cervical: No cervical adenopathy. Skin: General: Skin is warm and dry. Coloration: Skin is pale. Findings: No bruising or erythema. Neurological: General: No focal deficit present. Mental Status: He is alert and oriented to person, place, and time. Sensory: No sensory deficit. Coordination: Coordination normal. Psychiatric: Mood and Affect: Mood normal. Behavior: Behavior normal. Data Reviewed and Summarized EF BP Date Value Ref Range Status 04/27/2022 75 55 - 100 % Final Review of tests/labs done/ordered within my specialty: EKG in office: ECG 12-LEAD 04/24/2023 11:59 PM (Final) Impression Sinus rhythm Prolonged NJ interval Left anterior fascicular block Nonspecific T abnormalities, lateral leads Electronically Signed On 04-24-2023 23:59:02 EST by Melvin Morrell Signed by: Melvin Morrell MD on 04/24/2023 11:59 PM 04/27/22 TRANSTHORACIC ECHOCARDIOGRAM (TTE) COMPLETE (CONTRAST/BUBBLE/3D PRN) 04/27/2022 9:27 AM (Final) Interpretation Summary Left Ventricle: Left ventricle size is normal. Severely increased wall thickness. Normal left ventricular systolic function. EF by 2D Simpsons Biplane is 75%. Normal wall motion. Right Ventricle: Not well visualized. Right ventricle size is normal. Lead present in the right ventricle. Normal systolic function. Right Atrium: Right atrium is mildly dilated. Lead present in the right atrium. Aorta: Normal sized sinuses of Valsalva. Mildly dilated ascending aorta. Ao ascending diameter is 3.7 cm. Technically difficult study. The valvular structures are poorly visualized. No gross dysfunction on Doppler studies Signed by: Suzy Corcoran MD on 04/27/2022 9:27 AM Review of tests/labs done/ordered outside my specialty: Independent interpretation of tests: PATRICIA Rodriguez CNP documented in this encounter [facility] 05-12-2023 Instructions PATRICIA Rodriguez CNP - 05/12/2023 10:00 AM EST Nuclear stress test planned documented in this encounter [facility] 05-03-2023 Telephone encounter Note Canceling appt with KM, patient does not follow EP. Sent message to ON paralegal legal secretary to reschedule patient with his team. [facility] 05-03-2023 Miscellaneous Notes Canceling appt with KM, patient does not follow EP. Sent message to ON paralegal legal secretary to reschedule patient with his team. Patient seen in consultation by Dr. Greenberg in the CDU. Recommended stress test, but patient declined. States he would follow-up with his hob grinder, Dr. Corcoran as an outpatient. Patient was discharged back to facility. Can you please call and schedule the patient to be seen by [address] Corcoran's HAND EMBROIDERER's at [facility] in 2 weeks? Thank you documented in this encounter [facility] 04-24-2023 Telephone encounter Note Patient seen in consultation by Dr. Greenberg in the CDU. Recommended stress test, but patient declined. States he would follow-up with his hob grinder, Dr. Corcoran as an outpatient. Patient was discharged back to facility. Can you please call and schedule the patient to be seen by [address] Corcoran's HAND EMBROIDERER's at [facility] in 2 weeks? Thank you [facility] Work Phone: 04-24-2023 Miscellaneous Notes Patient seen in consultation by Dr. Greenberg in the CDU. Recommended stress test, but patient declined. States he would follow-up with his hob grinder, Dr. Corcoran as an outpatient. Patient was discharged back to facility. Can you please call and schedule the patient to be seen by [address] Corcoran's CHARISMA's at [facility] in 2 weeks? Thank you documented in this encounter [facility] 04-24-2023 Nurse Note Report called to Juan nurse. [facility] 04-24-2023 Nurse Note Report called to Juan nurse. Patient refusing stress test at this time. Patient states he has had them before and did not like it. Patient states he just wants to go home. Cardiology and CDU DERICK notified. documented in this encounter [facility] 04-24-2023 Plan of care note The patient is Moderately Stable - Low risk of patient condition declining or worsening The patient's goals for the shift include see cardiology The clinical goals for the shift include see cardiology Over the shift, the patient did not make progress toward the following goals. Barriers to progression include NA. Recommendations to address these barriers include NA. [facility] 04-24-2023 Miscellaneous Notes The patient is Moderately Stable - Low risk of patient condition declining or worsening The patient's goals for the shift include see cardiology The clinical goals for the shift include see cardiology Over the shift, the patient did not make progress toward the following goals. Barriers to progression include NA. Recommendations to address these barriers include NA. S/W, follow up Patient discharged back to [facility] Transport set via [facility] at 1p. oriental rug repairer provided report number [facility]. Patient aware of DC back at 1p. S/W, following Patient in from [facility] with chest pain. Likely to dc today to return. Return referral sent via [facility] to facility. S/W to follow for return. documented in this encounter [facility] 04-24-2023 Hospital Discharge instructions PATRICIA Nettles CNP - 04/24/2023 11:22 AM EST Resume normal level of activity PATRICIA Nettles CNP - 04/24/2023 11:23 AM EST Low carbohydrate diet d/t diabetes Swati Isabel RN - 04/24/2023 10:42 AM EST Continuity of Care Form Patient Name: James Reyes : 1955 Admit date: 04/23/2023 Discharge date: 04/24/23 Code Status Order: Full Code Advance Directives: N Admitting Physician: Robbie Mckeon MD PCP: Chelle Troncoso Discharging Nurse: Nathan Isabel RN Discharging Hospital Unit/Room#: CDU-07/CDU-07 A Discharging Unit Emergency Contact: Extended Emergency Contact Information Primary Emergency Contact: Sreekanth Reyes Relation: Sibling Past Surgical History: Past Surgical History: Procedure Laterality Date CHOLECYSTECTOMY 03/29/20162010 COLONOSCOPY 05/23/2017 COLONOSCOPY 03/29/2016, repeat in 10 years, Dr. Ness, normal except internal hemorrhoid COLONOSCOPY N/A 07/18/2022 Performed by David Chen MD at [facility] OR CORONARY ARTERY BYPASS GRAFT FOOT SURGERY Left 2015 HEMORRHOID SURGERY 1997 INNER EAR SURGERY tube placement in ears LAYERED WOUND CLOSURE N/A 10/16/2017 sternal wound debridment and closure with wound vac OTHER SURGICAL HISTORY 10/24/2017 I&D sternal wound with flap OTHER SURGICAL HISTORY punching bag removal THYROID SURGERY nodule removal 2010 TONSILLECTOMY (HISTORICAL) UPPER GASTROINTESTINAL ENDOSCOPY 04/01/2016 gastritis, duodentitis WISDOM TOOTH EXTRACTION Immunization History: Immunization History Administered Date(s) Administered Covid-19, Pfizer Bivalent Booster, (Age 12y+), Im, 30 Mcg/0e 03/01/2022 Influenza, High Dose Seasonal, Preservative Free 01/04/2017 Influenza, Unspecified 01/08/2015 Moderna SARS-CoV-2 Vaccination 02/02/2021 Pfizer SARS-CoV-2 Vaccination 04/15/2020, 05/06/2020, 02/02/2021, 09/01/2021 Pneumococcal Conjugate, Unspecified 09/20/2013 Active Problems: Medical Problems Problem List * (Principal) Chest pain IBS (irritable bowel syndrome) Overview Signed 01/27/2022 12:43 PM by Interface, Incoming Problems- [facility] Conversion Mixed Shoulder pain, left Dyslipidemia Knee pain, bilateral Knee osteoarthritis Insulin dependent diabetes mellitus MINERVA (obstructive sleep apnea) Tobacco abuse Esophagitis, reflux Morbid obesity ([facility]) Type 2 diabetes, uncontrolled, with neuropathy Wound disruption, post-op, skin, initial encounter Uncontrolled type 2 diabetes mellitus with hyperglycemia, with long-term current use of insulin ([facility]) CAD in [place] artery Uncontrolled type 2 diabetes mellitus with complication, with long-term current use of insulin Pseudomonas aeruginosa infection Angina at rest Sternal wound dehiscence 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 Enlarged prostate with lower urinary tract symptoms (LUTS) Hypertensive heart disease Overview Signed 01/27/2022 12:43 PM by Interface, Incoming Problems- [facility] Conversion ECHO [facility] 55% EF SHOWS HYPERTENSIVE HEART DISEASE COPD (chronic obstructive pulmonary disease) ([facility]) Overview Signed 01/27/2022 12:43 PM by Interface, Incoming Problems- [facility] Conversion PATIENT IS ON 2 LITER OF OXYGEN AND NOW IS SEEING DR ESTRADA WAS TESTED [facility] AND QUALIFED HOME OXYGEN 07/17/2015 Arthritis of foot, degenerative Hiatal hernia Colitis Anemia Colitis, collagenous Gastroesophageal reflux disease without esophagitis Isolation/Infection: No active isolations No active infections Nurse Assessment: Last Vital Signs: BP 112/51 (BP Location: Left arm, Patient Position: Lying) Pulse 68 Temp 36.4 C (97.6 F) Resp 18 Ht 1.829 m (6' 0.01") Wt 127 kg (280 lb) SpO2 94% BMI 37.97 kg/m Last documented pain score (0-10 scale): Last Weight: Wt Readings from Last 1 Encounters: 04/24/23 127 kg (280 lb) Mental Status: CRUZ Patient Mental Status: oriented and alert IV Access: CRUZ IV Access: None Nursing Mobility/ADLs: Walking Total assistance Transfer Total assistance Bathing Total assistance Dressing Total assistance Toileting Total assistance Feeding Minimal assistance Chain Person Minimal assistance Med Delivery yes Wound Care Documentation and Therapy: Elimination: Continence: Bowel: yes Bladder: no Urinary Catheter: None Colostomy/Ileostomy/Ileal Conduit: None Date of Last BM: unknown No intake or output data in the 24 hours ending 04/24/23 1041 No intake/output data recorded. Safety Concerns: none Impairments/Disabilities: none Nutrition Therapy: Current Nutrition Therapy: Oral diet: carb control 4 carbs/meal (1800kcals/day) Routes of Feeding: oral Liquids: no restrictions Daily Fluid Restriction: no Last Modified Barium Swallow with Video (Video Swallowing Test): not done Treatments at the Time of Hospital Discharge: Respiratory Treatments: N/A Oxygen Therapy: is not on home oxygen therapy. Ventilator: No ventilator support Rehab Therapies: physical therapy Weight Bearing Status/Restrictions: weight bearing as tolerated Other Medical Equipment (for information only, NOT a DME order): rolling walker Other Treatments: none Patient's personal belongings (please select all that are sent with patient): dentures upper RN SIGNATURE: MANAGEMENT/SOCIAL WORK SECTION Inpatient Status Date: Readmission Risk Assessment Score: @[email or web address]@ Discharging to Facility/ Agency Name: [facility] Address: [address] [place] [address] Fax: Dialysis Facility (if applicable) Name: Address: Dialysis Schedule: Phone: Fax: Hand Embroiderer/Box Person signature: ICIAN SECTION Prognosis: fair Condition at Discharge: stable Rehab Potential (if transferring to Rehab): fair Recommended Labs or Other Treatments After Discharge: none Physician Certification: I certify the above information and transfer of James Reyes is necessary for the continuing treatment of the diagnosis listed and that he requires assisted living for greater than 30 days. Update Admission H&P: No change in H&P PHYSICIAN SIGNATURE: documented in this encounter [facility] 04-24-2023 Note Formatting of this n ote might be different from the original. S/W, follow up Patient discharged back to [facility] Transport set via [facility] at 1p. oriental rug repairer provided report number Facility notified via careport as to transport time. Patient aware of DC back at 1p. [facility] 04-24-2023 Note Formatting of this n ote might be different from the original. S/W, follow up Patient discharged back to [facility] Transport set via [facility] at 1p. oriental rug repairer provided report number Facility notified via careport as to transport time. Patient aware of DC back at 1p. [facility] 04-24-2023 Nurse Note Spoke to Swati in CDU. Pt is choosing to go home, not have test. [facility] 04-24-2023 Nurse Note Spoke to Swati in CDU. Pt is choosing to go home, not have test. documented in this encounter [facility] 04-24-2023 Note Formatting of this n ote might be different from the original. S/W, following Patient in from [facility] with chest pain. Likely to dc today to return. Return referral sent via [facility]port to facility. S/W to follow for return. [facility] 04-24-2023 Note Formatting of this n ote might be different from the original. S/W, following Patient in from [facility] with chest pain. Likely to dc today to return. Return referral sent via [facility] to facility. S/W to follow for return. [facility] [place] 04-24-2023 Nurse Note Patient refusing stress test at this time. Patient states he has had them before and did not like it. Patient states he just wants to go home. Cardiology and CDU DERICK notified. [facility] [place] 04-24-2023 Consult note Formatting of th is note is different from the original. [facility] Patient Name: James Reyes : 1955 Date of Service: 04/24/23 Reason for Consultation: Chest pain History James Reyes is a 67 y.o.year-old male who presented to the ED for chest pain. PMHx significant for coronary artery disease s/p CABG in 2014, Hyperlipidemia, CKD, MINERVA, DM and tobacco abuse. Patient reports he began to have nonexertional sharp chest pain. He can point at the exact area where he had the pain and also felt the sharp pain in left upper arm. It last for a few minutes and resoled on its own quickly. States that he was smoking a cigarette at the time of the onset of the pain. Denies having SOB, N/V, dizziness, lightheadedness and diaphoresis at that time. Also denies having any recent illness or URI. Was recently seen by cardiology in 03/09 and was started on Carvedilol. Currently patient denies having chest pain, SOB, N/V, and diaphoresis. He denies exertional angina. Initial EKG showed sinus rhythm with nonspecific interventricular conduction delay. Troponin x3 were negative. Chest xray showed no acute findings. Labs showed BMP with hyperglycemia 217, CBC without leukocytosis or leukopenia and hemoglobin 11.5. Impression and Recommendations Chest pain Hx of CABG in 2014 and cath done in 2018 that showed a patent GREY to the LAD, has not had recent stress test done. Chest pain is atypical , trop negative x 3 so not ACS. But due to history of CAD and 6 years since last cath recommend to have stress test done. He took his coreg this am so would not favor an exercise stress test. Also has baseline severely increased wall thickness. Would recommend vasodilator nuclear stress test. Discussed with patient that we recommend he undergo a stress test but patient refusing to have any sort of stress test done while in the hospital. 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 C/w asa, coreg and lipitor Data Collection Cardiac Testin04/23/23 ECG 12-LEAD (Preliminary) This result has not been signed. Information might be incomplete. Impression Sinus rhythm Prolonged NJ interval Left anterior fascicular block Nonspecific T abnormalities, lateral leads 04/27/22 TRANSTHORACIC ECHOCARDIOGRAM (TTE) COMPLETE (CONTRAST/BUBBLE/3D PRN) 04/27/2022 9:27 AM (Final) Interpretation Summary Left Ventricle: Left ventricle size is normal. Severely increased wall thickness. Normal left ventricular systolic function. EF by 2D Simpsons Biplane is 75%. Normal wall motion. Right Ventricle: Not well visualized. Right ventricle size is normal. Lead present in the right ventricle. Normal systolic function. Right Atrium: Right atrium is mildly dilated. Lead present in the right atrium. Aorta: Normal sized sinuses of Valsalva. Mildly dilated ascending aorta. Ao ascending diameter is 3.7 cm. Technically difficult study. The valvular structures are poorly visualized. No gross dysfunction on Doppler studies Signed by: Suzy Corcoran MD on 04/27/2022 9:27 AM No results found for this or any previous visit. 08/07/17 (Final) Narrative Ordered by an unspecified provider. Past Medical History: has a past medical history of Acute kidney injury (HCC) (09/11/2015), CAD in [place] artery (08/08/2017), COPD (chronic obstructive pulmonary disease) ([facility]), Developmental disorder, Diabetes mellitus ([facility]), Esophageal reflux, Gastritis, GERD (gastroesophageal reflux disease), Hyperlipidemia, IBS (irritable bowel syndrome), Obesity, Osteoarthritis, Pain management, Plantar fasciitis, bilateral, Unspecified sleep apnea, and Urinary retention. He has no past medical history of Asthma, Atrial fibrillation (HCC), Cancer (CMS/HCC) (HCC), Cerebral artery occlusion with cerebral infarction (HCC), CHF (congestive heart failure) ([facility]), Depression, Headache, Immune deficiency disorder (HCC), Kidney stone, Pneumonia, Seizures ([facility]), or Thyroid disease. SurgicalHistory: has a past surgical history that includes Colonoscopy (05/23/2017); Coronary artery bypass graft; Upper gastrointestinal endoscopy (04/01/2016); Other surgical history (10/24/2017); Other surgical history; Thyroid surgery; [place] tooth extraction; Hemorrhoid surgery; Colonoscopy; Cholecystectomy (03/29/2016); Foot surgery (Left); Layered wound closure (N/A, 10/16/2017); Inner ear surgery; Tonsillectomy; and Colonoscopy (N/A, 07/18/2022). Social History: reports that he has been smoking cigarettes. He started smoking about 50 years ago. He has been smoking an average of 1 pack per day. He has never used smokeless tobacco. He reports that he does not drink alcohol and does not use drugs. Family History: family history includes [id number] in his brother; Coronary artery disease in his father; Diabetes in his father; Heart attack (age of onset: 61.00) in his mother; Heart disease in his father. HomeMedications: Prior to Admission medications Medication Sig Start Date End Date Taking? Authorizing Provider acetaminophen (Tylenol) 325 MG tablet Take 650 mg by mouth every 6 hours as needed. 07/28/21 Historical Provider, Advair Diskus 250-50 MCG/ACT aerosol powder 01/21/23 Historical Provider, albuterol (2.5 MG/3ML) 0.083% nebulizer solution Inhale 2.5 mg. 07/28/21 Historical Provider, albuterol 108 (90 Base) MCG/ACT inhaler Inhale 2 puffs every 6 hours as needed. 11/24/16 Historical Provider, aspirin 81 MG chewable tablet Chew 81 mg in the morning. 08/26/21 Historical Provider, atorvastatin (Lipitor) 80 MG tablet Take 80 mg by mouth in the morning. 07/29/21 Historical Provider, carvedilol (Coreg) 6.25 MG tablet Take 1 tablet (6.25 mg) by mouth in the morning and 1 tablet (6.25 mg) in the evening. Take with meals. 02/22/23 Suzy Corcoran MD cholestyramine (Questran) 4 g packet Take 1 packet by mouth in the morning and 1 packet at noon and 1 packet in the evening. Take with meals. Historical Provider, dicyclomine (Bentyl) 10 MG capsule Take 10 mg by mouth 3 times daily. 02/01/23 Historical ProviderMD dulaglutide (Trulicity) 4.5 MG/0.5ML solution pen-injector Inject 4.5 mg under the skin 1 (one) time per week. Every Monday Historical ProviderMD ergocalciferol (Vitamin D-2) 1.25 MG (78784 UT) capsule Take 1.25 mg by mouth 1 (one) time per week. Every Monday Historical ProviderMD ezetimibe (Zetia) 10 MG tablet Take 10 mg by mouth Nightly. 08/26/21 Historical ProviderMD famotidine (Pepcid) 20 MG tablet Take 20 mg by mouth in the morning. 08/26/21 Historical ProviderMD finasteride (Proscar) 5 MG tablet Take 5 mg by mouth in the morning. 08/26/21 Historical Provider, fluticasone (Flonase) 50 MCG/ACT nasal spray Administer 1 spray into each nostril daily. Shake gently. Before first use, prime pump. After use, clean tip and replace cap. Historical Provider, insulin glargine (Lantus) 100 UNIT/ML injection Inject 44 Units under the skin in the morning. 08/26/21 Historical ProviderMD Insulin Lispro (Humalog) 100 UNIT/ML solution injection Inject 16 Units under the skin in the morning and 16 Units at noon and 16 Units in the evening. 08/26/21 Historical Provider, nabumetone (Relafen) 500 MG tablet Take 1,000 mg by mouth 2 times daily. Historical Provider, nystatin (Mycostatin) cream 11/08/22 Historical Provider, pancrelipase, [id number]-Ntbh, (Creon) 40466-08746 units capsule Take by mouth 3 times daily (with meals). Historical Provider, pregabalin (Lyrica) 75 MG capsule Take 150 mg by mouth 2 times daily. Historical Provider, tamsulosin (Flomax) 0.4 MG 24 hr capsule Take 0.4 mg by mouth in the morning and 0.4 mg in the evening. 05/21/20 Historical ProviderMD tiotropium (Spiriva) [address] 1 capsule into inhaler and inhale in the morning. Historical Provider, SITagliptin (Januvia) 25 MG tablet Take 25 mg by mouth daily. 04/24/23 Historical Provider, Scheduled medications: aspirin, 81 mg, Oral, Daily atorvastatin, 80 mg, Oral, Daily carvedilol, 6.25 mg, Oral, BID WC cholestyramine, 1 packet, Oral, TID WC Diclofenac Sodium, 2 g, Topical, BID dicyclomine, 10 mg, Oral, TID ezetimibe, 10 mg, Oral, Daily famotidine, 20 mg, Oral, Daily finasteride, 5 mg, Oral, Daily insulin glargine, 44 Units, SubCUTAneous, Daily Insulin Lispro, 16 Units, SubCUTAneous, TID WC mometasone-formoterol, 2 puff, Inhalation, BID pancrelipase ([id number]), 2 capsule, Oral, TID WC pregabalin, 150 mg, Oral, BID sodium chloride 0.9%, 5-40 mL, IntraVENous, q12h tamsulosin, 0.4 mg, Oral, BID tiotropium, 1 capsule, Inhalation, Daily Allergies: Penicillins and Tetracyclines & related Other relevant review of systems: Review of Systems Constitutional: Negative for chills, diaphoresis and fever. Respiratory: Negative for shortness of breath. Cardiovascular: Negative for chest pain. Physical Exam: Vitals: 04/24/23 0405 04/24/23 0602 04/24/23 0745 04/24/23 0816 BP: 122/53 112/53 112/51 BP Location: Left arm Left arm Patient Position: Lying Lying Pulse: 58 52 68 Resp: 16 12 18 Temp: SpO2: 95% 94% 94% Weight: 280 lb (127 kg) Height: 6' 0.01" (1.829 m) No intake or output data in the 24 hours ending 04/24/23 0921 Wt Readings from Last 4 Encounters: 04/24/23 280 lb (127 kg) 02/22/23 262 lb (119 kg) 12/13/22 295 lb (134 kg) 09/02/22 283 lb (128 kg) Physical Exam Vitals and nursing note reviewed. Constitutional: General: He is not in acute distress. Appearance: He is not ill-appearing. Cardiovascular: Rate and Rhythm: Regular rhythm. Bradycardia present. Heart sounds: Normal heart sounds. No murmur heard. No friction rub. No gallop. Pulmonary: Effort: Pulmonary effort is normal. No respiratory distress. Breath sounds: Normal breath sounds. No wheezing, rhonchi or rales. Abdominal: General: There is no distension. Palpations: Abdomen is soft. Tenderness: There is no abdominal tenderness. There is no guarding. Skin: General: Skin is warm and dry. Neurological: Mental Status: He is alert. [employer] Work Phone: 04-24-2023 Consult note Formatting of th is note is different from the original. [email or web address] CARDIOLOGY CONSULTATION Patient Name: James Reyes : 1955 Date of Service: 04/24/23 Reason for Consultation: Chest pain History James Reyes is a 67 y.o.year-old male who presented to the ED for chest pain. PMHx significant for coronary artery disease s/p CABG in 2014, Hyperlipidemia, CKD, MINERVA, DM and tobacco abuse. Patient reports he began to have nonexertional sharp chest pain. He can point at the exact area where he had the pain and also felt the sharp pain in left upper arm. It last for a few minutes and resoled on its own quickly. States that he was smoking a cigarette at the time of the onset of the pain. Denies having SOB, N/V, dizziness, lightheadedness and diaphoresis at that time. Also denies having any recent illness or URI. Was recently seen by cardiology in 03/09 and was started on Carvedilol. Currently patient denies having chest pain, SOB, N/V, and diaphoresis. He denies exertional angina. Initial EKG showed sinus rhythm with nonspecific interventricular conduction delay. Troponin x3 were negative. Chest xray showed no acute findings. Labs showed BMP with hyperglycemia 217, CBC without leukocytosis or leukopenia and hemoglobin 11.5. Impression and Recommendations Chest pain Hx of CABG in 2014 and cath done in 2018 that showed a patent GREY to the LAD, has not had recent stress test done. Chest pain is atypical , trop negative x 3 so not ACS. But due to history of CAD and 6 years since last cath recommend to have stress test done. He took his coreg this am so would not favor an exercise stress test. Also has baseline severely increased wall thickness. Would recommend vasodilator nuclear stress test. Discussed with patient that we recommend he undergo a stress test but patient refusing to have any sort of stress test done while in the hospital. 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 C/w asa, coreg and lipitor Data Collection Cardiac Testin04/23/23 ECG 12-LEAD (Preliminary) This result has not been signed. Information might be incomplete. Impression Sinus rhythm Prolonged NJ interval Left anterior fascicular block Nonspecific T abnormalities, lateral leads 04/27/22 TRANSTHORACIC ECHOCARDIOGRAM (TTE) COMPLETE (CONTRAST/BUBBLE/3D PRN) 04/27/2022 9:27 AM (Final) Interpretation Summary Left Ventricle: Left ventricle size is normal. Severely increased wall thickness. Normal left ventricular systolic function. EF by 2D Simpsons Biplane is 75%. Normal wall motion. Right Ventricle: Not well visualized. Right ventricle size is normal. Lead present in the right ventricle. Normal systolic function. Right Atrium: Right atrium is mildly dilated. Lead present in the right atrium. Aorta: Normal sized sinuses of Valsalva. Mildly dilated ascending aorta. Ao ascending diameter is 3.7 cm. Technically difficult study. The valvular structures are poorly visualized. No gross dysfunction on Doppler studies Signed by: Suzy Corcoran MD on 04/27/2022 9:27 AM No results found for this or any previous visit. 08/07/17 (Final) Narrative Ordered by an unspecified provider. Past Medical History: has a past medical history of Acute kidney injury (HCC) (09/11/2015), CAD in [place] artery (08/08/2017), COPD (chronic obstructive pulmonary disease) ([facility]), Developmental disorder, Diabetes mellitus (HCC), Esophageal reflux, Gastritis, GERD (gastroesophageal reflux disease), Hyperlipidemia, IBS (irritable bowel syndrome), Obesity, Osteoarthritis, Pain management, Plantar fasciitis, bilateral, Unspecified sleep apnea, and Urinary retention. He has no past medical history of Asthma, Atrial fibrillation (HCC), Cancer (CMS/HCC) (HCC), Cerebral artery occlusion with cerebral infarction (HCC), CHF (congestive heart failure) (HCC), Depression, Headache, Immune deficiency disorder (HCC), Kidney stone, Pneumonia, Seizures (HCC), or Thyroid disease. SurgicalHistory: has a past surgical history that includes Colonoscopy (05/23/2017); Coronary artery bypass graft; Upper gastrointestinal endoscopy (04/01/2016); Other surgical history (10/24/2017); Other surgical history; Thyroid surgery; [place] tooth extraction; Hemorrhoid surgery; Colonoscopy; Cholecystectomy (03/29/2016); Foot surgery (Left); Layered wound closure (N/A, 10/16/2017); Inner ear surgery; Tonsillectomy; and Colonoscopy (N/A, 07/18/2022). Social History: reports that he has been smoking cigarettes. He started smoking about 50 years ago. He has been smoking an average of 1 pack per day. He has never used smokeless tobacco. He reports that he does not drink alcohol and does not use drugs. Family History: family history includes [id number] in his brother; Coronary artery disease in his father; Diabetes in his father; Heart attack (age of onset: 61.00) in his mother; Heart disease in his father. HomeMedications: Prior to Admission medications Medication Sig Start Date End Date Taking? Authorizing Provider acetaminophen (Tylenol) 325 MG tablet Take 650 mg by mouth every 6 hours as needed. 07/28/21 Historical Provider, Advair Diskus 250-50 MCG/ACT aerosol powder 01/21/23 Historical Provider, albuterol (2.5 MG/3ML) 0.083% nebulizer solution Inhale 2.5 mg. 07/28/21 Historical Provider, albuterol 108 (90 Base) MCG/ACT inhaler Inhale 2 puffs every 6 hours as needed. 11/24/16 Historical Provider, aspirin 81 MG chewable tablet Chew 81 mg in the morning. 08/26/21 Historical Provider, atorvastatin (Lipitor) 80 MG tablet Take 80 mg by mouth in the morning. 07/29/21 Historical Provider, carvedilol (Coreg) 6.25 MG tablet Take 1 tablet (6.25 mg) by mouth in the morning and 1 tablet (6.25 mg) in the evening. Take with meals. 02/22/23 Suzy Corcoran MD cholestyramine (Questran) 4 g packet Take 1 packet by mouth in the morning and 1 packet at noon and 1 packet in the evening. Take with meals. Historical Provider, dicyclomine (Bentyl) 10 MG capsule Take 10 mg by mouth 3 times daily. 02/01/23 Historical Provider, dulaglutide (Trulicity) 4.5 MG/0.5ML solution pen-injector Inject 4.5 mg under the skin 1 (one) time per week. Every Monday Historical ProviderMD ergocalciferol (Vitamin D-2) 1.25 MG (97957 UT) capsule Take 1.25 mg by mouth 1 (one) time per week. Every Monday Tracy ProviderMD ezetimibe (Zetia) 10 MG tablet Take 10 mg by mouth Nightly. 08/26/21 Historical ProviderMD famotidine (Pepcid) 20 MG tablet Take 20 mg by mouth in the morning. 08/26/21 Historical ProviderMD finasteride (Proscar) 5 MG tablet Take 5 mg by mouth in the morning. 08/26/21 Historical ProviderMD fluticasone (Flonase) 50 MCG/ACT nasal spray Administer 1 spray into each nostril daily. Shake gently. Before first use, prime pump. After use, clean tip and replace cap. Historical Provider, insulin glargine (Lantus) 100 UNIT/ML injection Inject 44 Units under the skin in the morning. 08/26/21 Historical ProviderMD Insulin Lispro (Humalog) 100 UNIT/ML solution injection Inject 16 Units under the skin in the morning and 16 Units at noon and 16 Units in the evening. 08/26/21 Historical ProviderMD nabumetone (Relafen) 500 MG tablet Take 1,000 mg by mouth 2 times daily. Historical Provider, nystatin (Mycostatin) cream 11/08/22 Historical Provider, pancrelipase, Kts-Lbtu-Peax, (Creon) [id number] units capsule Take by mouth 3 times daily (with meals). Historical Provider, pregabalin (Lyrica) 75 MG capsule Take 150 mg by mouth 2 times daily. Historical Provider, tamsulosin (Flomax) 0.4 MG 24 hr capsule Take 0.4 mg by mouth in the morning and 0.4 mg in the evening. 05/21/20 Historical ProviderMD tiotropium (Spiriva) [address] 1 capsule into inhaler and inhale in the morning. Historical Provider, SITagliptin (Januvia) 25 MG tablet Take 25 mg by mouth daily. 04/24/23 Historical ProviderMD Scheduled medications: aspirin, 81 mg, Oral, Daily atorvastatin, 80 mg, Oral, Daily carvedilol, 6.25 mg, Oral, BID WC cholestyramine, 1 packet, Oral, TID WC Diclofenac Sodium, 2 g, Topical, BID dicyclomine, 10 mg, Oral, TID ezetimibe, 10 mg, Oral, Daily famotidine, 20 mg, Oral, Daily finasteride, 5 mg, Oral, Daily insulin glargine, 44 Units, SubCUTAneous, Daily Insulin Lispro, 16 Units, SubCUTAneous, TID WC mometasone-formoterol, 2 puff, Inhalation, BID pancrelipase ([id number]-[id number]-Buxc), 2 capsule, Oral, TID WC pregabalin, 150 mg, Oral, BID sodium chloride 0.9%, 5-40 mL, IntraVENous, q12h tamsulosin, 0.4 mg, Oral, BID tiotropium, 1 capsule, Inhalation, Daily Allergies: Penicillins and Tetracyclines & related Other relevant review of systems: Review of Systems Constitutional: Negative for chills, diaphoresis and fever. Respiratory: Negative for shortness of breath. Cardiovascular: Negative for chest pain. Physical Exam: Vitals: 04/24/23 0405 04/24/23 0602 04/24/23 0745 04/24/23 0816 BP: 122/53 112/53 112/51 BP Location: Left arm Left arm Patient Position: Lying Lying Pulse: 58 52 68 Resp: 16 12 18 Temp: SpO2: 95% 94% 94% Weight: 280 lb (127 kg) Height: 6' 0.01" (1.829 m) No intake or output data in the 24 hours ending 04/24/23 0921 Wt Readings from Last 4 Encounters: 04/24/23 280 lb (127 kg) 02/22/23 262 lb (119 kg) 12/13/22 295 lb (134 kg) 09/02/22 283 lb (128 kg) Physical Exam Vitals and nursing note reviewed. Constitutional: General: He is not in acute distress. Appearance: He is not ill-appearing. Cardiovascular: Rate and Rhythm: Regular rhythm. Bradycardia present. Heart sounds: Normal heart sounds. No murmur heard. No friction rub. No gallop. Pulmonary: Effort: Pulmonary effort is normal. No respiratory distress. Breath sounds: Normal breath sounds. No wheezing, rhonchi or rales. Abdominal: General: There is no distension. Palpations: Abdomen is soft. Tenderness: There is no abdominal tenderness. There is no guarding. Skin: General: Skin is warm and dry. Neurological: Mental Status: He is alert. documented in this encounter [facility] 04-24-2023 Emergency department Note Report given to CDU MARLEY Snell RN 04/24/23803 [facility] 04-24-2023 Emergency department Note Report given to CDU MARLEY Snell RN 04/24/23803 Voltaren gel not given due to med not being available. Joelle Rivas RN 04/24/23 0358 Patient on telemetry monitoring. Joelle Rivas RN 04/23/23 2220 EMERGENCY DEPARTMENT ENCOUNTER Pt Name: James Reyes Birthdate 1955 Date of evaluation: 04/23/2023 ED Provider: Gulshan Arreola DO CHIEF COMPLAINT Chief Complaint Patient presents with Chest Pain HISTORY OF PRESENT ILLNESS (Location/Symptom, Timing/Onset, Context/Setting, Quality, Duration, Modifying Factors, Severity) Note limiting factors. I wore appropriate PPE for the entirety of this encounter. HPI James Reyes is a 67 y.o. who presents to the emergency department for chest pain from SNF. Patient endorsing intermittent chest pain for a couple weeks.. He endorses unsure what brings the chest pain on, however today he was outside smoking when he got chest pain and left arm pain but denies radiation of the pain shortness of breath nausea vomiting diaphoresis. Chest pain does not feel like his prior heart attacks but denies recent stress testing. He denies any recent illness fever illness abdominal pain or other symptoms. Patient endorses having chronic right leg pain secondary to arthritis. Patient uses rollator. Nursing Notes were reviewed. Limitations to history: Outside historians: REVIEW OF SYSTEMS Review of Systems Pertinent positives and negatives as per HPI PAST MEDICAL HISTORY Past Medical History: Diagnosis Date Acute kidney injury (HCC) 09/11/2015 CAD in [place] artery 08/08/2017 COPD (chronic obstructive pulmonary disease) (HCC) Developmental disorder Diabetes mellitus (HCC) Esophageal reflux Gastritis see EGD on 03/29/2016 GERD (gastroesophageal reflux disease) Hyperlipidemia IBS (irritable bowel syndrome) Mixed Obesity Osteoarthritis Pain management Plantar fasciitis, bilateral Unspecified sleep apnea Urinary retention SURGICAL HISTORY Past Surgical History: Procedure Laterality Date CHOLECYSTECTOMY 03/29/20162010 COLONOSCOPY 05/23/2017 COLONOSCOPY 03/29/2016, repeat in 10 years, Dr. Ness, normal except internal hemorrhoid COLONOSCOPY N/A 07/18/2022 Performed by David Chen MD at [facility] OR CORONARY ARTERY BYPASS GRAFT FOOT SURGERY Left 2014 HEMORRHOID SURGERY 1997 INNER EAR SURGERY tube placement in ears LAYERED WOUND CLOSURE N/A 10/16/2017 sternal wound debridment and closure with wound vac OTHER SURGICAL HISTORY 10/24/2017 I&D sternal wound with flap OTHER SURGICAL HISTORY punching bag removal THYROID SURGERY nodule removal 2010 TONSILLECTOMY (HISTORICAL) UPPER GASTROINTESTINAL ENDOSCOPY 04/01/2016 gastritis, duodentitis WISDOM TOOTH EXTRACTION CURRENT MEDICATIONS Previous Medications ACETAMINOPHEN (TYLENOL) 325 MG TABLET Take 650 mg by mouth every 6 hours as needed. ALBUTEROL (2.5 MG/3ML) 0.083% NEBULIZER SOLUTION Inhale 2.5 mg. ALBUTEROL 108 (90 BASE) MCG/ACT INHALER Inhale 2 puffs every 6 hours as needed. ASPIRIN 81 MG CHEWABLE TABLET Chew 81 mg in the morning. ATORVASTATIN (LIPITOR) 80 MG TABLET Take 80 mg by mouth in the morning. CARVEDILOL (COREG) 6.25 MG TABLET Take 1 tablet (6.25 mg) by mouth in the morning and 1 tablet (6.25 mg) in the evening. Take with meals. CHOLESTYRAMINE (QUESTRAN) 4 G PACKET Take 1 packet by mouth in the morning and 1 packet at noon and 1 packet in the evening. Take with meals. DULAGLUTIDE (TRULICITY) 4.5 MG/0.5ML SOLUTION PEN-INJECTOR Inject 4.5 mg under the skin 1 (one) time per week. ERGOCALCIFEROL (VITAMIN D-2) 1.25 MG (30720 UT) CAPSULE Take 1.25 mg by mouth 1 (one) time per week. EZETIMIBE (ZETIA) 10 MG TABLET Take 10 mg by mouth in the morning. FAMOTIDINE (PEPCID) 20 MG TABLET Take 20 mg by mouth in the morning. FINASTERIDE (PROSCAR) 5 MG TABLET Take 5 mg by mouth in the morning. FLUTICASONE (FLONASE) 50 MCG/ACT NASAL SPRAY Administer 1 spray into each nostril daily. Shake gently. Before first use, prime pump. After use, clean tip and replace cap. INSULIN GLARGINE (LANTUS) 100 UNIT/ML INJECTION Inject 40 Units under the skin in the morning. INSULIN LISPRO (HUMALOG) 100 UNIT/ML SOLUTION INJECTION Inject 18 Units under the skin in the morning and 18 Units at noon and 18 Units in the evening. NABUMETONE (RELAFEN) 500 MG TABLET Take 1,000 mg by mouth 2 times daily. PANCRELIPASE, [id number], (CREON) 18609-19442 UNITS CAPSULE Take by mouth 3 times daily (with meals). PREGABALIN (LYRICA) 75 MG CAPSULE Take 150 mg by mouth 2 times daily. SITAGLIPTIN (JANUVIA) 25 MG TABLET Take 25 mg by mouth daily. TAMSULOSIN (FLOMAX) 0.4 MG 24 HR CAPSULE Take 0.4 mg by mouth in the morning and 0.4 mg in the evening. TIOTROPIUM (SPIRIVA) [address] 1 capsule into inhaler and inhale in the morning. ALLERGIES Penicillins and Tetracyclines & related FAMILY HISTORY Family History Problem Relation Name Age of Onset Heart attack Mother 61.00 Heart disease Father Other ([id number]) Brother accident Coronary artery disease Father Diabetes Father SOCIAL HISTORY Social History Socioeconomic History Marital status: Single Tobacco Use Smoking status: Every Day Packs/day: 1 Types: Cigarettes Start date: 04/28/1973 Smokeless tobacco: Never Substance and Sexual Activity Alcohol use: No Alcohol/week: 0.0 standard drinks of alcohol Drug use: No SCREENINGS Daisetta Coma Scale Best Eye Response: Spontaneous Best Verbal Response: Oriented Best Motor Response: Follows commands Daisetta Coma Scale Score: 15 HEART Score History: Moderately suspicious ECG: Normal Age: 65+ Risk Factors: >2 risk factors or hx of atherosclerotic disease Troponin: Less than or equal to normal limit HEART Score: 5 PHYSICAL EXAM ED Triage Vitals Temp Heart Rate Resp BP 04/23/23201004/23/23201004/23/23201004/23/232013 36.4 C (97.6 F) 62 18 138/64 SpO2 Temp src Heart Rate Source Patient Position 04/23/232010 -- -- -- 95 % BP Location FiO2 (%) -- -- Physical Exam Vitals and nursing note reviewed. Constitutional: General: He is not in acute distress. Appearance: He is well-developed. He is not toxic-appearing. HENT: Head: Normocephalic and atraumatic. Mouth/Throat: Pharynx: Oropharynx is clear. Eyes: Conjunctiva/sclera: Conjunctivae normal. Pupils: Pupils are equal, round, and reactive to light. Cardiovascular: Rate and Rhythm: Normal rate and regular rhythm. Pulses: Normal pulses. Pulmonary: Effort: Pulmonary effort is normal. Breath sounds: Normal breath sounds. Abdominal: Palpations: Abdomen is soft. Tenderness: There is no abdominal tenderness. Musculoskeletal: Cervical back: Normal range of motion. Skin: General: Skin is warm and dry. Neurological: General: No focal deficit present. Mental Status: He is alert. DIAGNOSTIC RESULTS RADIOLOGY (Per Emergency Physician): Interpretation per the Radiologist below, if available at the time of this note: XR chest 1 view Final Result 1. No acute findings. Report Dictated on Electronically Signed By: Primo Millan MD Electronically Signed Date/Time: 04/23/2023 8:42 PM EST LABS: Labs Reviewed CBC WITH AUTO DIFFERENTIAL - Abnormal Result Value Auto WBC 5.4 RBC 3.87 (*) Hemoglobin 11.5 (*) Hematocrit 34.3 (*) MCV 88.5 MCH 29.7 MCHC 33.5 RDW 14.9 (*) Platelets 192 MPV 8.5 nRBC 0.1 Neutrophils Relative 66.7 Lymphocytes Relative 20.0 Monocytes Relative 10.0 Eosinophils Relative 2.5 Basophils Relative 0.8 Neutrophils Absolute 3.6 Lymphocytes Absolute 1.1 Monocytes Absolute 0.5 Eosinophils Absolute 0.1 Basophils Absolute 0.0 BASIC METABOLIC PANEL - Abnormal SODIUM 138 POTASSIUM 4.6 CHLORIDE 105 CARBON DIOXIDE 25 UREA NITROGEN 18 CREATININE 0.86 GLUCOSE 217 (*) CALCIUM 8.9 ANION GAP 7 eGFR >90.0 TROPONIN, WITH SERIAL REFLEX - Normal TROPONIN I <0.012 Narrative: Patients with high levels of Biotin oral intake (ie >5 mg/day) may have falsely decreased Troponin levels. TROPONIN I TROPONIN I All other labs were within normal range or not returned as of this dictation. EMERGENCY DEPARTMENT COURSE and DIFFERENTIAL DIAGNOSIS/MDM: Vitals: Vitals: 04/23/23201004/23/232013 BP: 138/64 Pulse: 62 Resp: 18 Temp: 36.4 C (97.6 F) SpO2: 95% Weight: 127 kg (280 lb) Height: 1.829 m (6') Medications oxyCODONE-acetaminophen (Percocet) 5-325 MG per tablet 1 tablet (has no administration in time range) aspirin chewable tablet 324 mg (324 mg Oral Given 04/23/232032) 67-year-old male presented to the ED for chest pain with a history of CAD detailed above. Exam as above. Will evaluate patient for number of etiologies include but not limited to ACS arrhythmia electrolyte abnormality, pneumonia. Patient given full dose aspirin. Workup revealed EKG sinus with nonspecific interventricular conduction delay no significant change from previous, chest x-ray without acute disease, BMP hyperglycemia 217 otherwise unremarkable undetectable troponin, CBC without leukocytosis or leukopenia, hemoglobin 11.5 otherwise unremarkable. Patient continues to be chest pain-free, high heart score no recent stress testing, recommend observation stay. Percocet for chronic leg pain. Patient ambulates with rollator. I discussed this case with CDU provider who accepted for admission. PROCEDURES: Unless otherwise noted below, none Procedures CRITICAL CARE TIME FINAL IMPRESSION 1. Chest pain, unspecified type DISPOSITION Observation 04/23/2023 09:33:06 PM PATIENT REFERRED TO: No follow-up provider specified. DISCHARGE MEDICATIONS: New Prescriptions No medications on file (Comment: Please note this report has been produced using speech recognition software and may contain errors related to that system including errors in grammar, punctuation, and spelling, as well as words and phrases that may be inappropriate. If there are any questions or concerns please feel free to contact the dictating provider for clarification.) Gulshan Arreola DO (electronically signed) Emergency Medicine Provider Gulshan Arreola DO 04/23/23 2246 Patient presents to the ED via EMS from a nursing facility due chest pain that has been going on for a couple of weeks. Patient states that he was having chest pain tonight while smoking a cigarette. Patient states that pain has been coming and going. Patient states that he rubs his chest when the pain comes and sometimes it goes away. Upon arrival patient is not complaining of chest pain anymore but is complaining of the chronic arthritis in his right leg. Bed: 17 Expected date: 04/23/23 Expected time: 8:04 PM Means of arrival: Comments: Nancy Thorpe RN 04/23/232006 documented in this encounter [facility] 04-24-2023 Emergency department Note Voltaren gel not given due to med not being available. Joelle Rivas RN 04/24/23 0358 [facility] 04-23-2023 History of Present illness Narrative I am not directly involved in care of this patient. Accepted with initial orders placed remotely from [facility] with approval from Dr. Mckeon. Further care to be managed by ED provider pending day shift CDU provider arrival. This is a non-billable note. CLIVE Savage documented in this encounter [facility] 04-23-2023 Emergency department Note Patient on telemetry monitoring. Joelle Rivas RN 04/23/232219 [facility] 04-23-2023 Emergency department Note Bed: 17 Expected date: 04/23/23 Expected time: 8:04 PM Means of arrival: Comments: Nancy Thorpe RN 04/23/232006 [facility] 04-23-2023 Emergency department Triage note Patient presents to the ED via EMS from a nursing facility due chest pain that has been going on for a couple of weeks. Patient states that he was having chest pain tonight while smoking a cigarette. Patient states that pain has been coming and going. Patient states that he rubs his chest when the pain comes and sometimes it goes away. Upon arrival patient is not complaining of chest pain anymore but is complaining of the chronic arthritis in his right leg. [facility] 04-23-2023 Physician Emergency department Note EMERGENCY DEPARTMENT ENCOUNTER Pt Name: James Reyes Birthdate 1955 Date of evaluation: 04/23/2023 ED Provider: Gulshan Arreola DO CHIEF COMPLAINT Chief Complaint Patient presents with Chest Pain HISTORY OF PRESENT ILLNESS (Location/Symptom, Timing/Onset, Context/Setting, Quality, Duration, Modifying Factors, Severity) Note limiting factors. I wore appropriate PPE for the entirety of this encounter. HPI James Reyes is a 67 y.o. who presents to the emergency department for chest pain from SNF. Patient endorsing intermittent chest pain for a couple weeks.. He endorses unsure what brings the chest pain on, however today he was outside smoking when he got chest pain and left arm pain but denies radiation of the pain shortness of breath nausea vomiting diaphoresis. Chest pain does not feel like his prior heart attacks but denies recent stress testing. He denies any recent illness fever illness abdominal pain or other symptoms. Patient endorses having chronic right leg pain secondary to arthritis. Patient uses rollator. Nursing Notes were reviewed. Limitations to history: Outside historians: REVIEW OF SYSTEMS Review of Systems Pertinent positives and negatives as per HPI PAST MEDICAL HISTORY Past Medical History: Diagnosis Date Acute kidney injury (HCC) 09/11/2015 CAD in [place] artery 08/08/2017 COPD (chronic obstructive pulmonary disease) (HCC) Developmental disorder Diabetes mellitus (HCC) Esophageal reflux Gastritis see EGD on 03/29/2016 GERD (gastroesophageal reflux disease) Hyperlipidemia IBS (irritable bowel syndrome) Mixed Obesity Osteoarthritis Pain management Plantar fasciitis, bilateral Unspecified sleep apnea Urinary retention SURGICAL HISTORY Past Surgical History: Procedure Laterality Date CHOLECYSTECTOMY 03/29/20162010 COLONOSCOPY 05/23/2017 COLONOSCOPY 03/29/2016, repeat in 10 years, Dr. Ness, normal except internal hemorrhoid COLONOSCOPY N/A 07/18/2022 Performed by David Chen MD at [facility] OR CORONARY ARTERY BYPASS GRAFT FOOT SURGERY Left 2015 HEMORRHOID SURGERY 1997 INNER EAR SURGERY tube placement in ears LAYERED WOUND CLOSURE N/A 10/16/2017 sternal wound debridment and closure with wound vac OTHER SURGICAL HISTORY 10/24/2017 I&D sternal wound with flap OTHER SURGICAL HISTORY punching bag removal THYROID SURGERY nodule removal 2010 TONSILLECTOMY (HISTORICAL) UPPER GASTROINTESTINAL ENDOSCOPY 04/01/2016 gastritis, duodentitis WISDOM TOOTH EXTRACTION CURRENT MEDICATIONS Previous Medications ACETAMINOPHEN (TYLENOL) 325 MG TABLET Take 650 mg by mouth every 6 hours as needed. ALBUTEROL (2.5 MG/3ML) 0.083% NEBULIZER SOLUTION Inhale 2.5 mg. ALBUTEROL 108 (90 BASE) MCG/ACT INHALER Inhale 2 puffs every 6 hours as needed. ASPIRIN 81 MG CHEWABLE TABLET Chew 81 mg in the morning. ATORVASTATIN (LIPITOR) 80 MG TABLET Take 80 mg by mouth in the morning. CARVEDILOL (COREG) 6.25 MG TABLET Take 1 tablet (6.25 mg) by mouth in the morning and 1 tablet (6.25 mg) in the evening. Take with meals. CHOLESTYRAMINE (QUESTRAN) 4 G PACKET Take 1 packet by mouth in the morning and 1 packet at noon and 1 packet in the evening. Take with meals. DULAGLUTIDE (TRULICITY) 4.5 MG/0.5ML SOLUTION PEN-INJECTOR Inject 4.5 mg under the skin 1 (one) time per week. ERGOCALCIFEROL (VITAMIN D-2) 1.25 MG (89062 UT) CAPSULE Take 1.25 mg by mouth 1 (one) time per week. EZETIMIBE (ZETIA) 10 MG TABLET Take 10 mg by mouth in the morning. FAMOTIDINE (PEPCID) 20 MG TABLET Take 20 mg by mouth in the morning. FINASTERIDE (PROSCAR) 5 MG TABLET Take 5 mg by mouth in the morning. FLUTICASONE (FLONASE) 50 MCG/ACT NASAL SPRAY Administer 1 spray into each nostril daily. Shake gently. Before first use, prime pump. After use, clean tip and replace cap. INSULIN GLARGINE (LANTUS) 100 UNIT/ML INJECTION Inject 40 Units under the skin in the morning. INSULIN LISPRO (HUMALOG) 100 UNIT/ML SOLUTION INJECTION Inject 18 Units under the skin in the morning and 18 Units at noon and 18 Units in the evening. NABUMETONE (RELAFEN) 500 MG TABLET Take 1,000 mg by mouth 2 times daily. PANCRELIPASE, [id number], (CREON) 59915-29840 UNITS CAPSULE Take by mouth 3 times daily (with meals). PREGABALIN (LYRICA) 75 MG CAPSULE Take 150 mg by mouth 2 times daily. SITAGLIPTIN (JANUVIA) 25 MG TABLET Take 25 mg by mouth daily. TAMSULOSIN (FLOMAX) 0.4 MG 24 HR CAPSULE Take 0.4 mg by mouth in the morning and 0.4 mg in the evening. TIOTROPIUM (SPIRIVA) [address] 1 capsule into inhaler and inhale in the morning. ALLERGIES Penicillins and Tetracyclines & related FAMILY HISTORY Family History Problem Relation Name Age of Onset Heart attack Mother 61.00 Heart disease Father Other ([id number]) Brother accident Coronary artery disease Father Diabetes Father SOCIAL HISTORY Social History Socioeconomic History Marital status: Single Tobacco Use Smoking status: Every Day Packs/day: 1 Types: Cigarettes Start date: 04/28/1973 Smokeless tobacco: Never Substance and Sexual Activity Alcohol use: No Alcohol/week: 0.0 standard drinks of alcohol Drug use: No SCREENINGS Daisetta Coma Scale Best Eye Response: Spontaneous Best Verbal Response: Oriented Best Motor Response: Follows commands Daisetta Coma Scale Score: 15 HEART Score History: Moderately suspicious ECG: Normal Age: 65+ Risk Factors: >2 risk factors or hx of atherosclerotic disease Troponin: Less than or equal to normal limit HEART Score: 5 PHYSICAL EXAM ED Triage Vitals Temp Heart Rate Resp BP 04/23/23201004/23/23201004/23/23201004/23/232013 36.4 C (97.6 F) 62 18 138/64 SpO2 Temp src Heart Rate Source Patient Position 04/23/232010 -- -- -- 95 % BP Location FiO2 (%) -- -- Physical Exam Vitals and nursing note reviewed. Constitutional: General: He is not in acute distress. Appearance: He is well-developed. He is not toxic-appearing. HENT: Head: Normocephalic and atraumatic. Mouth/Throat: Pharynx: Oropharynx is clear. Eyes: Conjunctiva/sclera: Conjunctivae normal. Pupils: Pupils are equal, round, and reactive to light. Cardiovascular: Rate and Rhythm: Normal rate and regular rhythm. Pulses: Normal pulses. Pulmonary: Effort: Pulmonary effort is normal. Breath sounds: Normal breath sounds. Abdominal: Palpations: Abdomen is soft. Tenderness: There is no abdominal tenderness. Musculoskeletal: Cervical back: Normal range of motion. Skin: General: Skin is warm and dry. Neurological: General: No focal deficit present. Mental Status: He is alert. DIAGNOSTIC RESULTS RADIOLOGY (Per Emergency Physician): Interpretation per the Radiologist below, if available at the time of this note: XR chest 1 view Final Result 1. No acute findings. Report Dictated on Electronically Signed By: Primo Millan MD Electronically Signed Date/Time: 04/23/2023 8:42 PM EST LABS: Labs Reviewed CBC WITH AUTO DIFFERENTIAL - Abnormal Result Value Auto WBC 5.4 RBC 3.87 (*) Hemoglobin 11.5 (*) Hematocrit 34.3 (*) MCV 88.5 MCH 29.7 MCHC 33.5 RDW 14.9 (*) Platelets 192 MPV 8.5 nRBC 0.1 Neutrophils Relative 66.7 Lymphocytes Relative 20.0 Monocytes Relative 10.0 Eosinophils Relative 2.5 Basophils Relative 0.8 Neutrophils Absolute 3.6 Lymphocytes Absolute 1.1 Monocytes Absolute 0.5 Eosinophils Absolute 0.1 Basophils Absolute 0.0 BASIC METABOLIC PANEL - Abnormal SODIUM 138 POTASSIUM 4.6 CHLORIDE 105 CARBON DIOXIDE 25 UREA NITROGEN 18 CREATININE 0.86 GLUCOSE 217 (*) CALCIUM 8.9 ANION GAP 7 eGFR >90.0 TROPONIN, WITH SERIAL REFLEX - Normal TROPONIN I <0.012 Narrative: Patients with high levels of Biotin oral intake (ie >5 mg/day) may have falsely decreased Troponin levels. TROPONIN I TROPONIN I All other labs were within normal range or not returned as of this dictation. EMERGENCY DEPARTMENT COURSE and DIFFERENTIAL DIAGNOSIS/MDM: Vitals: Vitals: 04/23/23201004/23/232013 BP: 138/64 Pulse: 62 Resp: 18 Temp: 36.4 C (97.6 F) SpO2: 95% Weight: 127 kg (280 lb) Height: 1.829 m (6') Medications oxyCODONE-acetaminophen (Percocet) 5-325 MG per tablet 1 tablet (has no administration in time range) aspirin chewable tablet 324 mg (324 mg Oral Given 04/23/232032) 67-year-old male presented to the ED for chest pain with a history of CAD detailed above. Exam as above. Will evaluate patient for number of etiologies include but not limited to ACS arrhythmia electrolyte abnormality, pneumonia. Patient given full dose aspirin. Workup revealed EKG sinus with nonspecific interventricular conduction delay no significant change from previous, chest x-ray without acute disease, BMP hyperglycemia 217 otherwise unremarkable undetectable troponin, CBC without leukocytosis or leukopenia, hemoglobin 11.5 otherwise unremarkable. Patient continues to be chest pain-free, high heart score no recent stress testing, recommend observation stay. Percocet for chronic leg pain. Patient ambulates with rollator. I discussed this case with CDU provider who accepted for admission. PROCEDURES: Unless otherwise noted below, none Procedures CRITICAL CARE TIME FINAL IMPRESSION 1. Chest pain, unspecified type DISPOSITION Observation 04/23/2023 09:33:06 PM PATIENT REFERRED TO: No follow-up provider specified. DISCHARGE MEDICATIONS: New Prescriptions No medications on file (Comment: Please note this report has been produced using speech recognition software and may contain errors related to that system including errors in grammar, punctuation, and spelling, as well as words and phrases that may be inappropriate. If there are any questions or concerns please feel free to contact the dictating provider for clarification.) Gulshan Arreola DO (electronically signed) Emergency Medicine Provider Gulshan Arreola DO 04/23/23 2244 [facility] 02-22-2023 History of Present illness Narrative [facility] Cardiology [facility] C[facility]IOLOG[facility] [address] [place] [address] Dept: [phone] Dept Visit type: Established : 1955 Chief Complaint: Chief Complaint Patient presents with 6 Month Follow-up Coronary Artery Disease History of Present Illness: James Reyes is a 67 y.o. male who presents today for his semiannual follow-up regarding his coronary artery disease, s/p bypass surgery around 2014. Continues to do well. A few weeks ago he had 1 episode of midsternal chest discomfort which was not exertional and not associated with constitutional symptoms resolved spontaneously. His biggest complaint is that when he walks outside that he feels his heart rate going up. He denies syncope or focal weakness. His lipids are on target. Patient lives in an assisted living facility. Past Medical History: Past Medical History: Diagnosis Date Acute kidney injury (HCC) 09/11/2015 CAD in [place] artery 08/08/2017 COPD (chronic obstructive pulmonary disease) (HCC) Developmental disorder Diabetes mellitus (HCC) Esophageal reflux Gastritis see EGD on 03/29/2016 GERD (gastroesophageal reflux disease) Hyperlipidemia IBS (irritable bowel syndrome) Mixed Obesity Osteoarthritis Pain management Plantar fasciitis, bilateral Unspecified sleep apnea Urinary retention Past Surgical History Past Surgical History: Procedure Laterality Date CHOLECYSTECTOMY 03/29/20162010 COLONOSCOPY 05/23/2017 COLONOSCOPY 03/29/2016, repeat in 10 years, Dr. Ness, normal except internal hemorrhoid COLONOSCOPY N/A 07/18/2022 Performed by David Chen MD at [facility] OR CORONARY ARTERY BYPASS GRAFT FOOT SURGERY Left 2014 HEMORRHOID SURGERY 1997 INNER EAR SURGERY tube placement in ears LAYERED WOUND CLOSURE N/A 10/16/2017 sternal wound debridment and closure with wound vac OTHER SURGICAL HISTORY 10/24/2017 I&D sternal wound with flap OTHER SURGICAL HISTORY punching bag removal THYROID SURGERY nodule removal 2010 TONSILLECTOMY (HISTORICAL) UPPER GASTROINTESTINAL ENDOSCOPY 04/01/2016 gastritis, duodentitis WISDOM TOOTH EXTRACTION Family History Family History Problem Relation Name Age of Onset Heart attack Mother 61.00 Heart disease Father Other ([id number]) Brother accident Coronary artery disease Father Diabetes Father Social History Social History Tobacco Use Smoking status: Every Day Packs/day: 1 Types: Cigarettes Start date: 04/28/1973 Smokeless tobacco: Never Substance Use Topics Alcohol use: No Alcohol/week: 0.0 standard drinks of alcohol Drug use: No Allergies: Allergies Allergen Reactions Penicillins Other reaction(s): Other (See Comments), Unknown unknown Tetracyclines & Related Other reaction(s): Other (See Comments), Unknown unknown Medications: Current Outpatient Medications: acetaminophen (Tylenol) 325 MG tablet, Take 650 mg by mouth every 6 hours as needed., Disp: , Rfl: albuterol (2.5 MG/3ML) 0.083% nebulizer solution, Inhale 2.5 mg., Disp: , Rfl: albuterol 108 (90 Base) MCG/ACT inhaler, Inhale 2 puffs every 6 hours as needed., Disp: , Rfl: aspirin 81 MG chewable tablet, Chew 81 mg in the morning., Disp: , Rfl: atorvastatin (Lipitor) 80 MG tablet, Take 80 mg by mouth in the morning., Disp: , Rfl: cholestyramine (Questran) 4 g packet, Take 1 packet by mouth in the morning and 1 packet at noon and 1 packet in the evening. Take with meals., Disp: , Rfl: dulaglutide (Trulicity) 4.5 MG/0.5ML solution pen-injector, Inject 4.5 mg under the skin 1 (one) time per week., Disp: , Rfl: ergocalciferol (Vitamin D-2) 1.25 MG (74860 UT) capsule, Take 1.25 mg by mouth 1 (one) time per week., Disp: , Rfl: ezetimibe (Zetia) 10 MG tablet, Take 10 mg by mouth in the morning., Disp: , Rfl: famotidine (Pepcid) 20 MG tablet, Take 20 mg by mouth in the morning., Disp: , Rfl: finasteride (Proscar) 5 MG tablet, Take 5 mg by mouth in the morning., Disp: , Rfl: fluticasone (Flonase) 50 MCG/ACT nasal spray, Administer 1 spray into each nostril daily. Shake gently. Before first use, prime pump. After use, clean tip and replace cap., Disp: , Rfl: insulin glargine (Lantus) 100 UNIT/ML injection, Inject 40 Units under the skin in the morning., Disp: , Rfl: Insulin Lispro (Humalog) 100 UNIT/ML solution injection, Inject 18 Units under the skin in the morning and 18 Units at noon and 18 Units in the evening., Disp: , Rfl: nabumetone (Relafen) 500 MG tablet, Take 1,000 mg by mouth 2 times daily., Disp: , Rfl: pancrelipase, Gfv-Vige-Gadu, (Creon) 7[address]77-[address]333 units capsule, Take by mouth 3 times daily (with meals)., Disp: , Rfl: pregabalin (Lyrica) 75 MG capsule, Take 150 mg by mouth 2 times daily., Disp: , Rfl: SITagliptin (Januvia) 25 MG tablet, Take 25 mg by mouth daily., Disp: , Rfl: tamsulosin (Flomax) 0.4 MG 24 hr capsule, Take 0.4 mg by mouth in the morning and 0.4 mg in the evening., Disp: , Rfl: tiotropium (Spiriva) 18 MCG inhalation capsule, Place 1 capsule into inhaler and inhale in the morning., Disp: , Rfl: carvedilol (Coreg) 6.25 MG tablet, Take 1 tablet (6.25 mg) by mouth in the morning and 1 tablet (6.25 mg) in the evening. Take with meals., Disp: 180 tablet, Rfl: 3 Review of Systems: Review of Systems Constitutional: Negative for activity change, chills, diaphoresis, fatigue and fever. HENT: Negative for nosebleeds and trouble swallowing. Eyes: Negative for discharge and visual disturbance. Respiratory: Negative for apnea, cough, chest tightness, shortness of breath and wheezing. Cardiovascular: Positive for chest pain and palpitations (walking). Negative for leg swelling. Gastrointestinal: Negative for abdominal distention, abdominal pain, blood in stool, diarrhea, nausea and vomiting. Endocrine: Negative for cold intolerance and heat intolerance. Genitourinary: Negative for hematuria. Musculoskeletal: Positive for gait problem. Negative for myalgias. Skin: Negative for color change and rash. Neurological: Negative for dizziness, seizures, syncope, facial asymmetry, speech difficulty, weakness, light-headedness, numbness and headaches. Hematological: Does not bruise/bleed easily. Psychiatric/Behavioral: Negative for dysphoric mood. Physical Examination: Vitals: Vitals: 02/22/23 1001 BP: 130/62 BP Location: Left arm Patient Position: Sitting BP Cuff Size: Adult Pulse: 102 SpO2: 98% Weight: 262 lb (119 kg) Body mass index is 33.64 kg/m . Physical Exam Vitals reviewed. Constitutional: Appearance: Normal appearance. He is normal weight. HENT: Head: Normocephalic and atraumatic. Right Ear: External ear normal. Left Ear: External ear normal. Nose: Nose normal. Eyes: Extraocular Movements: Extraocular movements intact. Conjunctiva/sclera: Conjunctivae normal. Neck: Vascular: No carotid bruit. Cardiovascular: Rate and Rhythm: Normal rate and regular rhythm. Heart sounds: No murmur heard. No gallop. Pulmonary: Effort: Pulmonary effort is normal. Breath sounds: Normal breath sounds. No wheezing. Abdominal: General: Bowel sounds are normal. Palpations: Abdomen is soft. Musculoskeletal: General: No swelling. Normal range of motion. Cervical back: Neck supple. Right lower leg: No edema. Left lower leg: No edema. Skin: General: Skin is warm and dry. Neurological: General: No focal deficit present. Mental Status: He is alert and oriented to person, place, and time. Psychiatric: Mood and Affect: Mood normal. Behavior: Behavior normal. Laboratory Tests: No results found for: "WBC", "HGB", "HCT", "MCV", "PLT" Lab Results Component Value Date GLUCOSE 195 (H) 04/13/2022 CALCIUM 9.4 04/13/2022 NA 135 04/13/2022 K 5.0 04/13/2022 CO2 28 04/13/2022 CL 102 04/13/2022 BUN 35 (H) 04/13/2022 CREATININE 1.71 (H) 04/13/2022 Lab Results Component Value Date NA 135 04/13/2022 K 5.0 04/13/2022 CL 102 04/13/2022 CO2 28 04/13/2022 BUN 35 (H) 04/13/2022 CREATININE 1.71 (H) 04/13/2022 GLUCOSE 195 (H) 04/13/2022 CALCIUM 9.4 04/13/2022 PROT 6.1 (L) 04/13/2022 BILITOT 0.5 04/13/2022 ALKPHOS 114 04/13/2022 AST 18 04/13/2022 ALT 21 04/13/2022 Lab Results Component Value Date CREATININE 1.71 (H) 04/13/2022 CREATININE 1.65 (H) 05/06/2019 Lab Results Component Value Date CHOL 113 04/13/2022 Lab Results Component Value Date TRIG 143 04/13/2022 Lab Results Component Value Date HDL 40 04/13/2022 Lab Results Component Value Date LDLCALC 44 04/13/2022 NT PRO BNP Date Value Ref Range Status 04/13/2022 127 (H) 0 - 125 pg/mL Final Cardiac Tests: EC04/13/22 Last Echo: 04/27/22 Left Ventricle: Left ventricle size is normal. Severely increased wall thickness. Normal left ventricular systolic function. EF by 2D Simpsons Biplane is 75%. Normal wall motion. Right Ventricle: Not well visualized. Right ventricle size is normal. Lead present in the right ventricle. Normal systolic function. Right Atrium: Right atrium is mildly dilated. Lead present in the right atrium. Aorta: Normal sized sinuses of Valsalva. Mildly dilated ascending aorta. Ao ascending diameter is 3.7 cm. Technically difficult study. The valvular structures are poorly visualized. No gross dysfunction on Doppler studies Last stress test: Last cardiac catheterization: 08/07/17 Assessment and Plan: 1. Coronary artery disease involving [place] coronary artery of [place] heart without angina pectoris 2. Dyslipidemia James Reyes is doing well. He has no cardiac symptoms. His last echocardiogram in April showed normal LV function. Last cardiac catheterization in 2017 showed a patent GREY to the LAD. At this point with paucity of symptoms I do not see any benefit from additional testing. However, due to his known coronary artery disease and his apparent tachycardic response to exercise I we will add carvedilol 6.25 mg twice daily. Patient will continue his statin therapy. I would like to reassess in 6 months. I reviewed my assessment and plan with James Reyes . All questions were answered. NOTE: This report was transcribed using voice recognition software. Every effort was made to ensure accuracy; however, inadvertent computerized primary school teacher errors may be present. documented in this encounter [facility] 12-13-2022 History of Present illness Narrative Images from the original note were not included. HPI: Abdominal Pain: Patient complains of abdominal pain.Pain is located low abdomen. The pain is described as moderate. Onset was 8 months ago. Symptoms have been gradually worsening since. Aggravatingfactors: dairy products and eating. Associated symptoms: diarrhea and nausea. The patient denies vomiting. Thoroughly reviewed thepatient's medical history, family history, social history and review of systems with the patient today in the office. Please see medical record for pertinent positives. Past Medical History: Diagnosis Date Acute kidney injury (CMS/HCC) ([facility]) 09/11/2015 CAD in [place] artery 08/08/2017 COPD (chronic obstructive pulmonary disease) ([facility]) Developmental disorder Diabetes mellitus ([facility]) Esophageal reflux Gastritis see EGD on 03/29/2016 GERD (gastroesophageal reflux disease) Hyperlipidemia IBS (irritable bowel syndrome) Mixed Obesity Osteoarthritis Pain management Plantar fasciitis, bilateral Unspecified sleep apnea Urinary retention Past Surgical History: Procedure Laterality Date CHOLECYSTECTOMY 03/29/20162010 COLONOSCOPY 05/23/2017 COLONOSCOPY 03/29/2016, repeat in 10 years, Dr. Ness, normal except internal hemorrhoid COLONOSCOPY N/A 07/18/2022 Performed by David Chen MD at [facility] OR CORONARY ARTERY BYPASS GRAFT FOOT SURGERY Left 2014 HEMORRHOID SURGERY 1997 INNER EAR SURGERY tube placement in ears LAYERED WOUND CLOSURE N/A 10/16/2017 sternal wound debridment and closure with wound vac OTHER SURGICAL HISTORY 10/24/2017 I&D sternal wound with flap OTHER SURGICAL HISTORY punching bag removal THYROID SURGERY nodule removal 2010 TONSILLECTOMY (HISTORICAL) UPPER GASTROINTESTINAL ENDOSCOPY 04/01/2016 gastritis, duodentitis WISDOM TOOTH EXTRACTION Current Outpatient Medications Medication Sig Dispense Refill acetaminophen (Tylenol) 325 MG tablet Take 650 mg by mouth every 6 hours as needed. albuterol (2.5 MG/3ML) 0.083% nebulizer solution Inhale 2.5 mg. albuterol 108 (90 Base) MCG/ACT inhaler Inhale 2 puffs every 6 hours as needed. aspirin 81 MG chewable tablet Chew 81 mg in the morning. atorvastatin (Lipitor) 80 MG tablet Take 80 mg by mouth in the morning. dulaglutide (Trulicity) 4.5 MG/0.5ML solution pen-injector Inject 4.5 mg under the skin 1 (one) time per week. ergocalciferol (Vitamin D-2) 1.25 MG (97578 UT) capsule Take 1.25 mg by mouth 1 (one) time per week. ezetimibe (Zetia) 10 MG tablet Take 10 mg by mouth in the morning. famotidine (Pepcid) 20 MG tablet Take 20 mg by mouth in the morning. finasteride (Proscar) 5 MG tablet Take 5 mg by mouth in the morning. insulin glargine (Lantus) 100 UNIT/ML injection Inject 40 Units under the skin in the morning. Insulin Lispro (Humalog) 100 UNIT/ML solution injection Inject 18 Units under the skin in the morning and 18 Units at noon and 18 Units in the evening. pregabalin (Lyrica) 75 MG capsule Take 150 mg by mouth 2 times daily. tamsulosin (Flomax) 0.4 MG 24 hr capsule Take 0.4 mg by mouth in the morning and 0.4 mg in the evening. tiotropium (Spiriva) [address] 1 capsule into inhaler and inhale in the morning. No current facility-administered medications for this visit. Allergies Allergen Reactions Penicillins Other reaction(s): Other (See Comments), Unknown unknown Tetracyclines & Related Other reaction(s): Other (See Comments), Unknown unknown Review of Systems: Review of Systems All other systems reviewed and are negative. Physical Exam: BP 102/64 Pulse 72 Ht 6' 2" (1.88 m) Wt 295 lb (134 kg) BMI 37.88 kg/m Physical Exam Abdominal: Comments: Mild tenderness Treatment:Patient counseled on risks, benefits, and alternatives of treatment plan at length while in the office today. Patient states an understanding and willingness to proceed with plan. No orders of the defined types were placed in this encounter. Follow Up: Start on [employer] diet to more fruits and vegatbiles and avoid all milk produts and no coffe but his colon was normal David Rodriguez MD, @[email or web address]@ documented in this encounter [facility] 07-18-2022 Note Formatting of this n ote might be different from the original. Discharged to [facility] (long-term resident). Accompanied by Arabella reyes . AVS and education reviewed with patient and Arabella, both verbalized understanding. Mode of transportation [place], patient accompanied with Arabella for transportation. Belongings sent. [facility] 07-18-2022 Note Formatting of this n ote might be different from the original. Discharged to [facility] (long-term resident). Accompanied by Arabella reyes . AVS and education reviewed with patient and Arabella, both verbalized understanding. Mode of transportation [place] [employer], patient accompanied with Arabella for transportation. Belongings sent. [facility] 07-18-2022 Miscellaneous Notes Discharged to [facility] (long-term resident). Accompanied by Arabella reyes . AVS and education reviewed with patient and Arabella, both verbalized understanding. Mode of transportation [employer], patient accompanied with Arabella for transportation. Belongings sent. Images from the original note were not included. DEPARTMENT OF SURGERY OPERATIVE NOTE DATE OF PROCEDURE: 07/18/2022 ATTENDING SURGEON: David Rodriguez MD HAND CLERICAL VERIFIER: 0 PREOPERATIVE DIAGNOSIS: colon bleed POSTOPERATIVE DIAGNOSIS: ulcer gastric, divertiulosisi, hemorroids OPERATION: egd, colonoscopy ANESTHESIA: ga ESTIMATED BLOOD LOSS: [place] HISTORY: patient with anemoia and abdominal pain and rectal bleeding PROCEDURE: egd show hiatal hernia, small gastric ulcers Colon to ICV , shows a few ticks lots of stool no polyps tumor, few ticks and hemorroids 1345 blood sugar 85. Per report, pt had low blood sugar in the AM was given 2 glucose tabs documented in this encounter [facility] 07-18-2022 Hospital Discharge instructions Lashay Wong RN - 07/18/2022 3:[address] Rodriguez's office: [phone] Anesthesia and Activity: DO NOT drive, operate machinery, drink any alcohol or take sleeping pills today Avoid making critical decisions, signing legal documents, or performing any activity that requires alertness for the rest of the day. After the test, you may feel a little bloated from air pumped into your colon, and burp or pass gas more often over the day. To help with relief, use a heating pad, walk around, or lie on your left side. You may experience a small amount of rectal bleeding or have streaks of blood in your stool, this can be normal after your colonoscopy. Notify your physician if the bleeding is enough to saturate your clothes. You may experience a tickling, dry throat or mouth. You may be hoarse. Use lozenges and warm saltwater gargles. Notify your physician if these symptoms persist longer than 48 hours. Rest the remainder of the day. You may resume normal activity tomorrow. DIET: You may resume a normal diet unless notified or recommended by your physician. You may be eager to eat a large meal after fasting, but it is a good idea to start with light meals and ease into solid foods the first day. If your stomach is upset, try clear liquids and bland, low fat foods like toast or rice. Drink plenty of fluids for the first 24 hours (unless your physician states otherwise) MEDICATION: Resume your normal home medications unless notified or recommended by your physician. Ask your physician when you can resume any blood thinners, such as Coumadin, Eliquis, Plavix, Aspirin or non-steroidal anti-inflammatory medications, such as Advil/Motrin (ibuprofen), Aleve (naproxen) Follow-up Appointment: If biopsies were taken or polyps were removed the office will call you with pathology reports in 7-10 days. If you do not hear from them during that time frame please call your physician. Ask Dr. Rodriguez's office when it is recommended for a repeat colonoscopy When to call for help: Call your doctor immediately or seek medical care if you experience: Severe pain or vomiting A large amount (filling the toilet )of maroon, bloody stools or tar like stools Coughing up more than a teaspoon of blood Your stomach is swollen and firm with severe pain A fever greater than 101 degrees Redness or swelling of arm from the IV site for more than 48 hours Sudden onset of chest pain or shortness of breath IF YOU ARE UNABLE TO REACH YOUR PHYSICIAN GO TO NEAREST EMERGENCY DEPARTMENT OR CALL 911 The following attachments cannot be sent through Care Everywhere.Colonoscopy (V[place]an)Upper GI Endoscopy ([place]an)documented in this encounter [facility] 07-18-2022 Note Formatting of this n ote might be different from the original. Images from the original note were not included. DEPARTMENT OF SURGERY OPERATIVE NOTE DATE OF PROCEDURE: 07/18/2022 ATTENDING SURGEON: David Rodriguez MD HAND CLERICAL VERIFIER: 0 PREOPERATIVE DIAGNOSIS: colon bleed POSTOPERATIVE DIAGNOSIS: ulcer gastric, divertiulosisi, hemorroids OPERATION: egd, colonoscopy ANESTHESIA: ga ESTIMATED BLOOD LOSS: [place] HISTORY: patient with anemoia and abdominal pain and rectal bleeding PROCEDURE: egd show hiatal hernia, small gastric ulcers Colon to ICV , shows a few ticks lots of stool no polyps tumor, few ticks and hemorroids [facility] Work Phone: 07-18-2022 Note Formatting of this n ote might be different from the original. Images from the original note were not included. DEPARTMENT OF SURGERY OPERATIVE NOTE DATE OF PROCEDURE: 07/18/2022 ATTENDING SURGEON: David Rodriguez MD HAND CLERICAL VERIFIER: 0 PREOPERATIVE DIAGNOSIS: colon bleed POSTOPERATIVE DIAGNOSIS: ulcer gastric, divertiulosisi, hemorroids OPERATION: egd, colonoscopy ANESTHESIA: ga ESTIMATED BLOOD LOSS: [place] HISTORY: patient with anemoia and abdominal pain and rectal bleeding PROCEDURE: egd show hiatal hernia, small gastric ulcers Colon to ICV , shows a few ticks lots of stool no polyps tumor, few ticks and hemorroids [facility] Work Phone: 07-18-2022 History and physical note Subjective James Reyes is a 66 y.o. male who [facility] the [facility] today for a preoperative consultation at the request of surgeon Dr Rodriguez who plans on performing EGD and colonoscopy on July 18. Planned anesthesia: IV sedation. Last solid meal: 07/15/22 Stool consistency today: Hasn't had BM since 07/15 Pacemaker: no Defibrillator: no Blood Thinners: no Social History Socioeconomic History Marital status: Single Spouse name: Not on file Number of children: Not on file Years of education: Not on file Highest education level: Not on file Occupational History Not on file Tobacco Use Smoking status: Every Day Packs/day: 1.00 Types: Cigarettes Start date: 04/28/1973 Smokeless tobacco: Never Substance and Sexual Activity Alcohol use: No Alcohol/week: 0.0 standard drinks Drug use: No Sexual activity: Not on file Comment: single Other Topics Concern Not on file Social History Narrative Not on file Social Determinants of Health Financial Resource Strain: Not on file Food Insecurity: Not on file Transportation Needs: Not on file Physical Activity: Not on file Stress: Not on file Social Connections: Not on file Intimate Partner Violence: Not on file Housing Stability: Not on file Past Medical History: Diagnosis Date Acute kidney injury (CMS/HCC) ([facility]) 09/11/2015 CAD in [place] artery 08/08/2017 COPD (chronic obstructive pulmonary disease) ([facility]CC) Developmental disorder Diabetes mellitus ([facility]CC) Esophageal reflux Gastritis see EGD on 03/29/2016 GERD (gastroesophageal reflux disease) Hyperlipidemia IBS (irritable bowel syndrome) Mixed Obesity Osteoarthritis Pain management Plantar fasciitis, bilateral Unspecified sleep apnea Urinary retention Past Surgical History: Procedure Laterality Date CHOLECYSTECTOMY 03/29/20162010 COLONOSCOPY 05/23/2017 COLONOSCOPY 03/29/2016, repeat in 10 years, Dr. Ness, normal except internal hemorrhoid CORONARY ARTERY BYPASS GRAFT FOOT SURGERY Left 2015 HEMORRHOID SURGERY 1998 INNER EAR SURGERY tube placement in ears LAYERED WOUND CLOSURE N/A 10/16/2017 sternal wound debridment and closure with wound vac OTHER SURGICAL HISTORY 10/24/2017 I&D sternal wound with flap OTHER SURGICAL HISTORY punching bag removal THYROID SURGERY nodule removal 2010 TONSILLECTOMY (HISTORICAL) UPPER GASTROINTESTINAL ENDOSCOPY 04/01/2016 gastritis, duodentitis WISDOM TOOTH EXTRACTION Allergies: Allergies Allergen Reactions Penicillins Other reaction(s): Other (See Comments), Unknown unknown Tetracyclines & Related Other reaction(s): Other (See Comments), Unknown unknown Vital Signs: Ht 6'2" Wt 300 BP 117/56 Pox 98% HR 63 resp 20 temp 98.2 Physical Exam Constitutional: Appearance: Normal appearance. He is obese. HENT: Mouth/Throat: Pharynx: Oropharynx is clear. Eyes: Conjunctiva/sclera: Conjunctivae normal. Cardiovascular: Rate and Rhythm: Normal rate and regular rhythm. Pulmonary: Effort: Pulmonary effort is normal. Breath sounds: Normal breath sounds. Musculoskeletal: General: Normal range of motion. Cervical back: Normal range of motion. Comments: Ambultes w/ rollator Skin: General: Skin is warm and dry. Neurological: Mental Status: He is alert and oriented to person, place, and time. Psychiatric: Mood and Affect: Mood normal. Judgment: Judgment normal. Predictors of anesthesia difficulty: Tolerate anesthesia in past: yes Morbid obesity? yes - Neck range of motion: normal Dentition: top dentures, bottom own teeth AP: CAD s/p CABG DM2 insulin dep COPD [place]ERVA Obesity HLD Tobacco use Anemia Ibs Screening colonoscopy [facility] 07-18-2022 History and physical note Subjective James Reyes is a 66 y.o. male who presents to the [facility] today for a preoperative consultation at the request of surgeon Dr Rodriguez who plans on performing EGD and colonoscopy on July 18. Planned anesthesia: IV sedation. Last solid meal: 07/15/22 Stool consistency today: Hasn't had BM since 07/15 Pacemaker: no Defibrillator: no Blood Thinners: no Social History Socioeconomic History Marital status: Single Spouse name: Not on file Number of children: Not on file Years of education: Not on file Highest education level: Not on file Occupational History Not on file Tobacco Use Smoking status: Every Day Packs/day: 1.00 Types: Cigarettes Start date: 04/28/1973 Smokeless tobacco: Never Substance and Sexual Activity Alcohol use: No Alcohol/week: 0.0 standard drinks Drug use: No Sexual activity: Not on file Comment: single Other Topics Concern Not on file Social History Narrative Not on file Social Determinants of Health Financial Resource Strain: Not on file Food Insecurity: Not on file Transportation Needs: Not on file Physical Activity: Not on file Stress: Not on file Social Connections: Not on file Intimate Partner Violence: Not on file Housing Stability: Not on file Past Medical History: Diagnosis Date Acute kidney injury (CMS/HCC) ([facility]) 09/11/2015 CAD in [place] artery 08/08/2017 COPD (chronic obstructive pulmonary disease) ([facility]) Developmental disorder Diabetes mellitus ([facility]) Esophageal reflux Gastritis see EGD on 03/29/2016 GERD (gastroesophageal reflux disease) Hyperlipidemia IBS (irritable bowel syndrome) Mixed Obesity Osteoarthritis Pain management Plantar fasciitis, bilateral Unspecified sleep apnea Urinary retention Past Surgical History: Procedure Laterality Date CHOLECYSTECTOMY 03/29/20162010 COLONOSCOPY 05/23/2017 COLONOSCOPY 03/29/2016, repeat in 10 years, Dr. Ness, normal except internal hemorrhoid CORONARY ARTERY BYPASS GRAFT FOOT SURGERY Left 2015 HEMORRHOID SURGERY 1997 INNER EAR SURGERY tube placement in ears LAYERED WOUND CLOSURE N/A 10/16/2017 sternal wound debridment and closure with wound vac OTHER SURGICAL HISTORY 10/24/2017 I&D sternal wound with flap OTHER SURGICAL HISTORY punching bag removal THYROID SURGERY nodule removal 2010 TONSILLECTOMY (HISTORICAL) UPPER GASTROINTESTINAL ENDOSCOPY 04/01/2016 gastritis, duodentitis WISDOM TOOTH EXTRACTION Allergies: Allergies Allergen Reactions Penicillins Other reaction(s): Other (See Comments), Unknown unknown Tetracyclines & Related Other reaction(s): Other (See Comments), Unknown unknown Vital Signs: Ht 6'2" Wt 300 BP 117/56 Pox 98% HR 63 resp 20 temp 98.2 Physical Exam Constitutional: Appearance: Normal appearance. He is obese. HENT: Mouth/Throat: Pharynx: Oropharynx is clear. Eyes: Conjunctiva/sclera: Conjunctivae normal. Cardiovascular: Rate and Rhythm: Normal rate and regular rhythm. Pulmonary: Effort: Pulmonary effort is normal. Breath sounds: Normal breath sounds. Musculoskeletal: General: Normal range of motion. Cervical back: Normal range of motion. Comments: Ambultes w/ rollator Skin: General: Skin is warm and dry. Neurological: Mental Status: He is alert and oriented to person, place, and time. Psychiatric: Mood and Affect: Mood normal. Judgment: Judgment normal. Predictors of anesthesia difficulty: Tolerate anesthesia in past: yes Morbid obesity? yes - Neck range of motion: normal Dentition: top dentures, bottom own teeth AP: CAD s/p CABG DM2 insulin dep COPD MINERVA Obesity HLD Tobacco use Anemia Ibs Screening colonoscopy documented in this encounter [facility] 07-18-2022 Note Formatting of this n ote might be different from the original. 1345 blood sugar 85. Per report, pt had low blood sugar in the AM was given 2 glucose tabs [facility] 07-18-2022 Note Formatting of this n ote might be different from the original. 1345 blood sugar 85. Per report, pt had low blood sugar in the AM was given 2 glucose tabs [facility] 06-07-2022 History of Present illness Narrative @ASSESSMENT[facility]BOR[facility] HEART AND LUNG CENTERANDREAS@ HPI: James Reyes is a 66 y.o. male who presents today for a screening colonoscopy. He has no change in bowel pattern, blood in his stool, diarrhea, constipation, abdominal pain, change in appetite, weight loss, or other concerning GI symptoms. Physical Exam: @VSAMB@ Gen: NAD, well-developed HEENT: atraumatic; normo-cephalic; conjunctivae pink; no jaundice Resp: normal effort, no accessory muscle use CV: pulse: regular Abdomen: non-distended, non-tender Skin: no rashes, lesions, or ulcers ROS: as per HPI, otherwise non-contributory Allergies: Allergies Allergen Reactions Penicillins Other reaction(s): Other (See Comments), Unknown unknown Tetracyclines & Related Other reaction(s): Other (See Comments), Unknown unknown Past Medical History: Diagnosis Date Acute kidney injury (CMS/HCC) (HCC) 09/11/2015 CAD in [place] artery 08/08/2017 COPD (chronic obstructive pulmonary disease) (HCC) Developmental disorder Diabetes mellitus (HCC) Esophageal reflux Gastritis see EGD on 03/29/2016 GERD (gastroesophageal reflux disease) Hyperlipidemia IBS (irritable bowel syndrome) Mixed Obesity Osteoarthritis Pain management Plantar fasciitis, bilateral Unspecified sleep apnea Urinary retention Past Surgical History: Procedure Laterality Date CHOLECYSTECTOMY 03/29/20162010 COLONOSCOPY 05/23/2017 COLONOSCOPY 03/29/2016, repeat in 10 years, Dr. Ness, normal except internal hemorrhoid CORONARY ARTERY BYPASS GRAFT FOOT SURGERY Left 2015 HEMORRHOID SURGERY 1997 INNER EAR SURGERY tube placement in ears LAYERED WOUND CLOSURE N/A 10/16/2017 sternal wound debridment and closure with wound vac OTHER SURGICAL HISTORY 10/24/2017 I&D sternal wound with flap OTHER SURGICAL HISTORY punching bag removal THYROID SURGERY nodule removal 2010 TONSILLECTOMY (HISTORICAL) UPPER GASTROINTESTINAL ENDOSCOPY 04/01/2016 gastritis, duodentitis WISDOM TOOTH EXTRACTION @MEDCMED@ Social History Socioeconomic History Marital status: Single Spouse name: Not on file Number of children: Not on file Years of education: Not on file Highest education level: Not on file Occupational History Not on file Tobacco Use Smoking status: Every Day Packs/day: 1.00 Types: Cigarettes Start date: 04/28/1973 Smokeless tobacco: Never Substance and Sexual Activity Alcohol use: No Alcohol/week: 0.0 standard drinks Drug use: No Sexual activity: Not on file Comment: single Other Topics Concern Not on file Social History Narrative Not on file Social Determinants of Health Financial Resource Strain: Not on file Food Insecurity: Not on file Transportation Needs: Not on file Physical Activity: Not on file Stress: Not on file Social Connections: Not on file Intimate Partner Violence: Not on file Housing Stability: Not on file Family History Problem Relation Name Age of Onset Heart attack Mother 61.00 Heart disease Father Other ([id number]) Brother accident Coronary artery disease Father Diabetes Father @[email or web address]@ Assessment: 66 y.o. male in need of a screening colonoscopy. Plan: Add egd for anemia Details of colonoscopy are discussed including the risks of bleeding, perforation, splenic injury, respiratory and anesthetic complications. He is informed that results will be discussed with him following the procedure. Pathology results will be relayed by phone. Office follow up will be scheduled as indicated. . documented in this encounter [facility] 05-06-2022 Miscellaneous Notes Addended by: WILMA GRANT on: 05/06/2022 11:06 AM Modules accepted: Orders documented in this encounter [facility] 05-06-2022 History of Present illness Narrative Assessment/Plan: 1. Type 2 diabetes mellitus without retinopathy (HCC) Patient educated on today's exam findings, importance of tight glucose control, and the importance of continued follow up with primary care physician and/or sander hand; monitor at complete exam. Diabetes Eye Care Management: -- no diabetic retinopathy on dilated examination OU -- absence of CSDME OU 2. Cataract, nuclear sclerotic, both eyes Educated patient on exam findings; surgical removal is not indicated at this time. Monitor at the next complete exam or sooner with vision changes, worsening symptoms of cataracts (increases in glare/halos/blur). Educated patient patient on mild visual impact of cataracts, will monitor next year c RRE to see if ready for surgery - rtc sooner if vision worsens prior to that time. Deferred finalizing MRx today. Pt reports he has three glasses at home he does not wear. Patient had difficulty with refraction. 3. Nonexudative age-related macular degeneration, bilateral, early dry stage Patient education on exam findings and condition, the benefits/risks of lifestyle modifications including no smoking, sunglasses with UV protection, diet rich in green leafy vegetables and colorful fruits. Dispensed copy of amsler grid to pt for monitoring daily and RTC stat with changes. Monitor @ complete, sooner c changes. 4. Papilloma of left upper eyelid Educated pt on findings. Pt reports as stable. Educated patient to rtc if growth/change to appearance occurs. Use sun protection to protect eyelids from UV light. Monitor @ complete exam, sooner PRN changes/growth/ulceration/scabbing . 5. Tearing eyes Educated patient that tearing eyes are from dryness and also cause for redness. Recommend AT use PRN/up to QID OU. Monitor. Wilma Grant OD RTC 04/2023 diabetic exam/cataract evaluation c RRE documented in this encounter [facility] 05-06-2022 Instructions Wilma Grant, HERBIE - 05/06/2022 10:43 AM EST Images from the original note were not included. Currently, there are no studies to support taking vitamins or supplements for mild macular degeneration. However, if you smoke, it is recommended you quit. Smoking is the greatest modifiable risk factor for macular degeneration progression. If you live with a someone who smokes, it is recommended you avoid second hand smoke. Eat a healthy diet that includes leafy green vegetables (spinach, kale, broccoli) and exercise regularly. Always consult your primary care physician for changes to diet and exercise routines as some foods may interact with your medications. Wear 100% UV protected sunglasses. Regular dilated eye exams are recommended as instructed by your doctor. Amsler Grid You are asked to check the Amsler Grid regularly. Placing it in a visible area such as on the refrigerator or on a vanity mirror can help you remember to check it. 1. While wearing your reading or prescription glasses, place the grid on a flat surface (such as on a hardback book) and hold it at your normal reading distance (about 12 inches). 2. With one eye covered, look at the black dot in the center of the grid. Note any lines or squares that are wavy, distorted or missing. 3. Cover the other eye, and repeat this test. 4. If you notice NEW distortions or changes to your last Amsler Grid check, please call [phone] to schedule an appointment. . Dr. Grant has recommended that you use a lubricating drop. Her preferred drops are Systane Ultra or Refresh Optive Advanced, but if you would want to try other brands this is the suggested list. 1. Systane Ultra 2. Refresh Optive Advanced or any other Refresh product 3. Genteal (any product in this line) 4. Soothe 5. BLINK NEVER use any product marked as "gets the red out". Drops marked as 'get the red out' can make the condition of redness worse over time. You are to use this drop as needed. Always remember, to get the most benefit from the drops, close your eyes for 5 minutes after instillation. If you are using an artifical tear more than 4 times per day, please purchase the 'preservative-free' option of one of the above listed brands. documented in this encounter [facility] 07-28-2021 Note HNO ID: [id number] Author: Aydee Juarez RN Service: Care Management Author Type: Registered Nurse Type: Care Mgt Progress Note Filed: 07/28/2021 3:01 PM Note Text: CARE MANAGEMENT DISCHARGE NOTE SERVICE DATE: 07/28/2021 SERVICE TIME: 2:59 PM LOS: 7 days Admission Date: 07/21/2021 DISCHARGE ARRANGEMENT (list agency and phone number) Discharge Arrangement: [employer] Acute Care Provider Name: Boone De Guzman CAREGIVER ASSESSMENT: Called and updated pt's brother Sreekanth about DC to [facility] today at 7pm. HANDOFF COMMUNICATION: RN to RN report TRANSPORTATION ARRANGEMENTS: Transportation Arrangements: Ambulance/[place] Transportation Agency and Phone #:: [facility] ( [facility] ) [phone] / [phone] Date of Trip: 07/28/21 Time of Trip: 1900 Type of Service: [facility] Non-emergency Is Patient Medicaid Pending?: No Derrick Follower Location: [facility] Destination: [facility] Financial Care Management Responsibility: None ADDITIONAL CONTACT RESOURCES: Text message to Pt's ROBBIE Kehindeleta with facility info. SIGNATURE: Aydee Juarez RN PATIENT NAME: James Reyes DATE: July 28, 2021 TIME: 2:59 PM PAGER/CONTACT #: [phone] [facility] 07-28-2021 Note HNO ID: [id number] Author: Dayana Hill MD Service: Critical Care Author Type: Physician Type: Progress Notes Filed: 07/28/2021 12:42 PM Note Text: [facility] STAFF PHYSICIAN NOTE OF PERSONAL INVOLVEMENT IN CARE I have reviewed the progress note obtained and documented by the resident and I personally participated in the white components. I have discussed the case and management of the patient's care. The following comments revise or confirm relevant white components of the note. HPI: Patient was seen and examined at bedside this morning. Continues to be on 10L HFNC, and doing well. Otherwise new leucocytosis but no fever. No new complains. DATA: 07/28/21 0800 07/28/21 0900 07/28/21 1000 07/28/21 1146 BP: 126/109 147/76 136/71 Pulse: 74 71 68 79 Resp: 19 18 17 18 Temp: 36 ?C (96.8 ?F) 36.2 ?C (97.16 ?F) 36.4 ?C (97.52 ?F) TempSrc: Axillary SpO2: 89% 90% 93% 90% Weight: Height: Physical exam: Physical Examination Performed Oral Mucosa: Moist mucous membranes Eyes: PERRLA Neck: Unremarkable; No adenopathy or JVD Cardiovascular: RRR, S1-S2 auscultated. Respiratory: Bilateral air entry with bilateral basal crackles and no expiratory wheezing. Abdomen: Soft, Nontender and Positive bowel sounds Neurologic: Awake, oriented, Alert, Follows commands and Moving all extremities CBC with diff: WBC 10.89 07/27/2021 RBC 4.27 07/27/2021 Hemoglobin 11.9 07/27/2021 Hematocrit 37.4 07/27/2021 MCV 87.6 07/27/2021 MCH 27.9 07/27/2021 MCHC 31.8 07/27/2021 RDW-CV 15.0 07/27/2021 Platelet Count 380 07/27/2021 MPV 10.0 07/27/2021 Neut% 86.9 07/21/2021 Lymph% 4.7 07/21/2021 [place]% 6.7 07/21/2021 Baso% 0.3 07/21/2021 Abs Neut 11.89 07/21/2021 Abs [place] 0.92 07/21/2021 Abs Eosin 0.12 07/21/2021 Abs Baso 0.04 07/21/2021 Glucose (mg/dL) Date Value 07/28/2021 275 Potassium (mmol/L) Date Value 07/28/2021 4.4 Sodium (mmol/L) Date Value 07/28/2021 134 Chloride (mmol/L) Date Value 07/28/2021 95 CO2 (mmol/L) Date Value 07/28/2021 30 Creatinine (mg/dL) Date Value 07/28/2021 1.28 BUN (mg/dL) Date Value 07/28/2021 48 Anion Gap (mmol/L) Date Value 07/28/2021 9 Calcium, Total (mg/dL) Date Value 07/28/2021 8.2 Protein, Total (g/dL) Date Value 07/21/2021 7.0 Albumin (g/dL) Date Value 07/28/2021 2.5 Bilirubin, Total (mg/dL) Date Value 07/21/2021 0.3 Alkaline Phosphatase (U/L) Date Value 07/21/2021 88 AST (U/L) Date Value 07/21/2021 10 ALT (U/L) Date Value 07/21/2021 10 Glucose (mg/dL) Date Value 07/28/2021 275 Potassium (mmol/L) Date Value 07/28/2021 4.4 Sodium (mmol/L) Date Value 07/28/2021 134 Chloride (mmol/L) Date Value 07/28/2021 95 CO2 (mmol/L) Date Value 07/28/2021 30 Creatinine (mg/dL) Date Value 07/28/2021 1.28 BUN (mg/dL) Date Value 07/28/2021 48 Anion Gap (mmol/L) Date Value 07/28/2021 9 Calcium, Total (mg/dL) Date Value 07/28/2021 8.2 Fluid Balance: Intake/Output Summary (Last 24 hours) at 07/28/2021 0659 Last data filed at 07/28/2021 0647 Gross per 24 hour Intake 1476 ml Output 2480 ml Net -1004 ml Last Weight: (!) 141 kg (310 lb 13.6 oz) (07/28/21 0647) Admit Weight: 106.6 kg (235 lb) (07/21/21 0932) DIET CARBOHYDRATE CONTROLLED Lines, Drains, and Airways Line Peripheral 07/21/21 0934 Short Right Antecubital 20 Gauge 7 days Peripheral 07/24/21 2200 Short Left Antecubital 20 Gauge 3 days Drain Indwelling Urinary Catheter 07/22/21 1300 Coude 5 days Diagnostic Work up: NT Pro BNP Date Value Ref Range Status 07/24/2021 937 (H) <125 pg/mL Final Last CT Chest - Impression Only CT CHEST W IVCON PE Exam End: 07/21/2021 12:06 PM (Final result) Impression: IMPRESSION: 1. No CT evidence of pulmonary embolism. 2. Predominately atelectasis medial right upper lobe. Prominent atelectasis at the base and right middle lobe. Near-complete collapse of the right lower lobe. Scattered subsegmental atelectasis medial left upper lobe as well as lingula and at the left lung base. 3. Underlying pneumonia in these areas is not excluded in the appropriate clinical setting. 4. Trace right-sided pleural effusion.... Complete Results Last Echocardiogram LVEF ECHO Collected: 07/25/2021 10:36 AM (Final result) Complete Results IMPRESSION: -Acute on chronic hypoxic and hypercapnic respiratory failure. -Right lung consolidation, HAP with pleural effusion, improving. -Acute COPD exacerbation. -JESSIKA on CKD. -Mild protein calorie malnutrition in the context of acute illness present on admission. MMP. Active Hospital Problems Diagnosis Date Noted - Respiratory failure (HCC) 07/21/2021 Resolved Hospital Problems No resolved problems to display. PLAN:. -Continue to wean off oxygen as tolerated to maintain saturation above 88%. -Antibiotics as per ID. -Continue with planned steroid taper. -Appreciate endocrine input and continue with insulin regimen (more content not included)... [facility] 07-28-2021 Note HNO ID: [id number] Author: Myrna Banks DO Service: Critical Care Author Type: Resident Type: Progress Notes Filed: 07/28/2021 11:03 AM Note Text: Attestation signed by Dayana Hill MD at 07/28/2021 12:40 PM Attending Note I evaluated the patient and personally participated in the white components. I agree with the resident's findings and plan as documented and have discussed the case and management of the patient's care with the resident. Please see my note for further details. Signature: Dayana Hill MD Date: July 28, 2021 CRITICAL CARE PROGRESS NOTE PATIENT NAME: James Reyes REASON FOR ICU ADMISSION: LOS: 7 Admission Date:?07/21/2021 ? HPI: Mr. James Reyes is a 65-year-old male with PMH of: - Type 2 Diabetes Mellitus - CAD s/p CABG - MINERVA and COPD - Tobacco Abuse [1 pack per day for ~47 years] - Obesity [BMI 41.44] ? Mr. Reyes initially presented to the [facility] ED from [facility] on 07/21/2021 for evaluation of chest pain, dyspnea and cough, after being found to be saturating ~80% on RA. Upon initial evaluation in the ED, the patient was found to be hypoxic to ~80% requiring the use of NC and then later NRB. He was otherwise hemodynamically stable. Patient was admitted to the ICU for Respiratory Failure secondary to COPD Exacerbation?and PNA.? ? Subjective INTERVAL EVENTS NAEO. Pt endorses BiPAP overnight. 10L O2 NC I/o's: -2100 Vitals: Stable Labs: WBC 16.69, hyperglycemia highest 377 CKD; stable cr 1.28 and bun 48 Micro: Sputum with gram positive cocci. NGTD x 1 day Imaging: Meds: Lantus 60 unit(s) BID, increased lispro with meals 20 unit(s). Custom sliding scale per endo Consultation updates: PT recommended home PT (assisted living) HPI (obtained from admission): PAST MEDICAL HISTORY Diagnosis Date - Foot infection - Hypercholesterolemia - Neuropathy - Type II diabetes mellitus (HCC) PAST SURGICAL HISTORY Procedure Laterality Date - PAST SURGICAL HISTORY OF Cholecystectomy - PAST SURGICAL HISTORY OF Thyroid Tumor Removal - PAST SURGICAL HISTORY OF Left Foot FAMILY HISTORY Problem Relation Age of Onset - other (DM II) Father Social History Tobacco Use - Smoking status: Current Every Day Smoker Packs/day: 1.00 Types: Cigarettes - Smokeless tobacco: Never Used Substance Use Topics - Alcohol use: No - Drug use: No I have confirmed and edited as necessary, the PFSH and ROS obtained by others. Objective BP 123/72 Pulse (!) 55 Temp 36.1 ?C (96.98 ?F) (Axillary) Resp 12 Ht 182.9 cm (6') Wt (!) 141 kg (310 lb 13.6 oz) SpO2 97% BMI 42.16 kg/m? Body mass index is 42.16 kg/m?. Physical Exam Constitutional: Appearance: He is obese. Cardiovascular: Rate and Rhythm: Normal rate and regular rhythm. Pulses: Normal pulses. Heart sounds: Normal heart sounds. No murmur heard. No friction rub. No gallop. Pulmonary: Effort: No respiratory distress. Breath sounds: No stridor. No wheezing or rhonchi. Comments: Diffuse decreased breath sounds. Likely due to body habitus Abdominal: General: Bowel sounds are normal. There is no distension. Palpations: Abdomen is soft. Tenderness: There is no abdominal tenderness. Musculoskeletal: Right lower leg: No edema. Left lower leg: No edema. Neurological: Mental Status: He is alert. Physical Exam listed below was completed in entirety today 07/28/2021 and is unchanged from except where noted. MEDICATIONS: Scheduled medications: insulin lispro, 30 Units, w MEALS insulin glargine, 60 Units, AT BEDTIME insulin glargine, 60 Units, DAILY (8 AM) ezetimibe, 10 mg, DAILY fenofibrate, 200 mg, DAILY WITH BREAKFAST predniSONE, 40 mg, DAILY insulin lispro, , w MEALS AND HS meropenem, 1 g, q 8 H furosemide, 40 mg, DAILY heparin, 7,500 Units, q 8 H tamsulosin, 0.4 mg, BID pregabalin, 100 mg, TID finasteride, 5 mg, DAILY famotidine, 20 mg, AT BEDTIME atorvastatin, 80 mg, DAILY aspirin, enteric coated, 81 mg, DAILY sodium chloride 0.9 % (flush), 3-5 mL, q 12 H ipratropium-albuterol, 3 mL, q 4 H while awake IV infusions: PRN: dextrose, 15 g, PRN Or glucagon, 1 mg, PRN Or dextrose 50% in water, 12.5 g, PRN senna-docusate, 2 tablet, BID PRN sodium chloride 0.9 % (flush), 2-10 mL, DIRECTED PRN sodium chloride 0.9 % (flush), 2-10 mL, DIRECTED PRN And perflutren lipid microspheres, 1.3 mL, DIRECTED PRN NaCl 0.9%, 20 mL, PRN iv contrast, , DIRECTED PRN acetylcysteine, 2 mL, q 20 MIN PRN potassium chloride ER, 20-40 mEq, PRN Or potassium chloride, 20 mEq, PRN magnesium sulfate, 2 g, PRN phosphorus, 500 mg, PRN(NO DISPENSE) calcium gluconate iv piggyback in NaCl 0.9% 250 mL, 4 g, PRN albuterol, 2.5 mg, q 2 H PRN acetaminophen, 650 (more content not included)... [facility] 07-27-2021 Note HNO ID: [id number] Author: Dayana Hill MD Service: Critical Care Author Type: Physician Type: Progress Notes Filed: 07/27/2021 4:27 PM Note Text: [facility] STAFF PHYSICIAN NOTE OF PERSONAL INVOLVEMENT IN CARE I have reviewed the progress note obtained and documented by the resident and I personally participated in the white components. I have discussed the case and management of the patient's care. The following comments revise or confirm relevant white components of the note. HPI: Patient was seen and examined at bedside this morning. Has been transitioned off AirVo to high flow nasal cannula. States that he is doing well and has no new complaints overnight. Bedside ultrasound did not show any evidence of significant pleural effusion. DATA: 07/27/21 0900 07/27/21 1000 07/27/21 1100 07/27/21 1150 BP: 126/81 136/71 112/72 Pulse: 79 63 65 67 Resp: 20 14 13 21 Temp: 36.5 ?C (97.7 ?F) 36.6 ?C (97.88 ?F) 36.7 ?C (98.06 ?F) TempSrc: SpO2: 92% 93% 92% 90% Weight: Height: Physical exam: Physical Examination Performed Oral Mucosa: Moist mucous membranes Eyes: PERRLA Neck: Unremarkable; No adenopathy or JVD Cardiovascular: RRR, S1-S2 auscultated. Respiratory: Bilateral air entry with bilateral basal crackles and mild expiratory wheezing. Abdomen: Soft, Nontender and Positive bowel sounds Neurologic: Awake, oriented, Alert, Follows commands and Moving all extremities CBC with diff: WBC 10.89 07/27/2021 RBC 4.27 07/27/2021 Hemoglobin 11.9 07/27/2021 Hematocrit 37.4 07/27/2021 MCV 87.6 07/27/2021 MCH 27.9 07/27/2021 MCHC 31.8 07/27/2021 RDW-CV 15.0 07/27/2021 Platelet Count 380 07/27/2021 MPV 10.0 07/27/2021 Neut% 86.9 07/21/2021 Lymph% 4.7 07/21/2021 [place]% 6.7 07/21/2021 Baso% 0.3 07/21/2021 Abs Neut 11.89 07/21/2021 Abs [place] 0.92 07/21/2021 Abs Eosin 0.12 07/21/2021 Abs Baso 0.04 07/21/2021 Glucose (mg/dL) Date Value 07/27/2021 161 Potassium (mmol/L) Date Value 07/27/2021 4.2 Sodium (mmol/L) Date Value 07/27/2021 134 Chloride (mmol/L) Date Value 07/27/2021 94 CO2 (mmol/L) Date Value 07/27/2021 28 Creatinine (mg/dL) Date Value 07/27/2021 1.31 BUN (mg/dL) Date Value 07/27/2021 50 Anion Gap (mmol/L) Date Value 07/27/2021 12 Calcium, Total (mg/dL) Date Value 07/27/2021 8.7 Protein, Total (g/dL) Date Value 07/21/2021 7.0 Albumin (g/dL) Date Value 07/27/2021 2.6 Bilirubin, Total (mg/dL) Date Value 07/21/2021 0.3 Alkaline Phosphatase (U/L) Date Value 07/21/2021 88 AST (U/L) Date Value 07/21/2021 10 ALT (U/L) Date Value 07/21/2021 10 Glucose (mg/dL) Date Value 07/27/2021 161 Potassium (mmol/L) Date Value 07/27/2021 4.2 Sodium (mmol/L) Date Value 07/27/2021 134 Chloride (mmol/L) Date Value 07/27/2021 94 CO2 (mmol/L) Date Value 07/27/2021 28 Creatinine (mg/dL) Date Value 07/27/2021 1.31 BUN (mg/dL) Date Value 07/27/2021 50 Anion Gap (mmol/L) Date Value 07/27/2021 12 Calcium, Total (mg/dL) Date Value 07/27/2021 8.7 Fluid Balance: Intake/Output Summary (Last 24 hours) at 07/27/2021 0659 Last data filed at 07/27/2021 0548 Gross per 24 hour Intake 831 ml Output 3030 ml Net -2199 ml Last Weight: (!) 141.1 kg (311 lb 1.1 oz) (07/26/212023) Admit Weight: 106.6 kg (235 lb) (07/21/2132) DIET CARBOHYDRATE CONTROLLED Lines, Drains, and Airways Line Peripheral 07/21/21 0934 Short Right Antecubital 20 Gauge 6 days Peripheral 07/24/21 2200 Short Left Antecubital 20 Gauge 2 days Drain Indwelling Urinary Catheter 07/22/21 1300 Coude 5 days Diagnostic Work up: NT Pro BNP Date Value Ref Range Status 07/24/2021 937 (H) <125 pg/mL Final Last CT Chest - Impression Only CT CHEST W IVCON PE Exam End: 07/21/2021 12:06 PM (Final result) Impression: IMPRESSION: 1. No CT evidence of pulmonary embolism. 2. Predominately atelectasis medial right upper lobe. Prominent atelectasis at the base and right middle lobe. Near-complete collapse of the right lower lobe. Scattered subsegmental atelectasis medial left upper lobe as well as lingula and at the left lung base. 3. Underlying pneumonia in these areas is not excluded in the appropriate clinical setting. 4. Trace right-sided pleural effusion.... Complete Results Last Echocardiogram LVEF ECHO Collected: 07/25/2021 10:36 AM (Final result) Complete Results IMPRESSION: -Acute on chronic hypoxic and hypercapnic respiratory failure. -Right lung consolidation, HAP with pleural effusion, improving. -Acute COPD exacerbation. -JESSIKA on CKD. -Mild protein calorie malnutrition in the context of acute illness present on admission. MMP. Active Hospital Problems Diagnosis Date Noted - Respiratory failure (HCC) 07/21/2021 Resolved Hospital Problems No resolved problems to display. PLAN:. -Continue to wean off oxygen as tolerated to maintain saturation above 88%. -Antibiotics as per ID. -Co (more content not included)... [facility] 07-27-2021 Note HNO ID: [id number] Author: Aydee Juarez RN Service: Care Management Author Type: Registered Nurse Type: Care Mgt Progress Note Filed: 07/27/2021 11:12 AM Note Text: CARE MANAGEMENT PROGRESS NOTE SERVICE DATE: 07/27/2021 SERVICE TIME: 11:01 AM LOS: 6 days Needs Prior to Discharge: To Be Determined;OT/PT Evaluation;Discharge Transportation DC plan: Return to [facility] date: TBD Barrier: Pt wears 2-4L O2 ant [facility]. On 6-8L NC now. Requet to facility to check on max O2 amount able to provide. Called and reviewed planning with brother- Sreekanth. Aware of plan for possible transfer to floor. Would like update about thoracentesis- not done yesterday. Message relayed to Dr Hill. SIGNATURE: Aydee Juarez RN PATIENT NAME: James Reyes DATE: July 27, 2021 TIME: 11:01 AM PAGER/CONTACT #: [phone] [facility] 07-27-2021 Note HNO ID: [id number] Author: Myrna Banks DO Service: Family Practice Author Type: Resident Type: Progress Notes Filed: 07/27/2021 2:02 PM Note Text: Attestation signed by Dayana Hill MD at 07/27/2021 2:04 PM Attending Note I evaluated the patient and personally participated in the white components. I agree with the resident's findings and plan as documented and have discussed the case and management of the patient's care with the resident. Please see my note for further details. Signature: Dayana Hill MD Date: 07/27/2021 Time: 2:04 PM CRITICAL CARE PROGRESS NOTE PATIENT NAME: James Reyes REASON FOR ICU ADMISSION: LOS: 6 Subjective INTERVAL EVENTS NAEO. No complaints 93% 8L NC Vitals: HR 52-77 I/Os: -2199 cc Labs: Glucose controlled, Cr 1.31 BUN 50; stable, Na 134 downtrending Micro: Sputum cx pending Imaging: None Meds: Insulin changes per endocrinology Consultation updates: Nutrition HPI (obtained from admission): PAST MEDICAL HISTORY Diagnosis Date - Foot infection - Hypercholesterolemia - Neuropathy - Type II diabetes mellitus (HCC) PAST SURGICAL HISTORY Procedure Laterality Date - PAST SURGICAL HISTORY OF Cholecystectomy - PAST SURGICAL HISTORY OF Thyroid Tumor Removal - PAST SURGICAL HISTORY OF Left Foot FAMILY HISTORY Problem Relation Age of Onset - other (DM II) Father Social History Tobacco Use - Smoking status: Current Every Day Smoker Packs/day: 1.00 Types: Cigarettes - Smokeless tobacco: Never Used Substance Use Topics - Alcohol use: No - Drug use: No I have confirmed and edited as necessary, the PFSH and ROS obtained by others. Objective BP 119/69 Pulse 66 Temp 36.5 ?C (97.7 ?F) Resp 20 Ht 182.9 cm (6') Wt (!) 141.1 kg (311 lb 1.1 oz) SpO2 90% BMI 42.19 kg/m? Body mass index is 42.19 kg/m?. Physical Exam Constitutional: Appearance: He is obese. HENT: Mouth/Throat: Mouth: Mucous membranes are moist. Cardiovascular: Rate and Rhythm: Normal rate and regular rhythm. Pulmonary: Effort: Pulmonary effort is normal. No respiratory distress. Breath sounds: No wheezing or rhonchi. Comments: 88% 8L NC Abdominal: General: Bowel sounds are normal. There is distension. Palpations: Abdomen is soft. Tenderness: There is no abdominal tenderness. Musculoskeletal: Right lower leg: No edema. Left lower leg: No edema. Skin: General: Skin is warm. Neurological: Mental Status: He is alert. Physical Exam listed below was completed in entirety today 07/27/2021 and is unchanged from except where noted. MEDICATIONS: Scheduled medications: predniSONE, 40 mg, DAILY insulin lispro, 15 Units, w MEALS insulin glargine, 60 Units, DAILY wDINNER insulin lispro, , w MEALS AND HS meropenem, 1 g, q 8 H furosemide, 40 mg, DAILY heparin, 7,500 Units, q 8 H tamsulosin, 0.4 mg, BID pregabalin, 100 mg, TID finasteride, 5 mg, DAILY famotidine, 20 mg, AT BEDTIME atorvastatin, 80 mg, DAILY aspirin, enteric coated, 81 mg, DAILY sodium chloride 0.9 % (flush), 3-5 mL, q 12 H ipratropium-albuterol, 3 mL, q 4 H while awake IV infusions: insulin regular, Last Rate: Stopped (07/26/211913) PRN: dextrose, 15 g, PRN Or glucagon, 1 mg, PRN Or dextrose 50% in water, 12.5 g, PRN senna-docusate, 2 tablet, BID PRN sodium chloride 0.9 % (flush), 2-10 mL, DIRECTED PRN sodium chloride 0.9 % (flush), 2-10 mL, DIRECTED PRN And perflutren lipid microspheres, 1.3 mL, DIRECTED PRN insulin regular human, 2-10 Units, PRN dextrose 50% in water, 25-50 mL, PRN NaCl 0.9%, 20 mL, PRN iv contrast, , DIRECTED PRN acetylcysteine, 2 mL, q 20 MIN PRN potassium chloride ER, 20-40 mEq, PRN Or potassium chloride, 20 mEq, PRN magnesium sulfate, 2 g, PRN phosphorus, 500 mg, PRN(NO DISPENSE) calcium gluconate iv piggyback in NaCl 0.9% 250 mL, 4 g, PRN albuterol, 2.5 mg, q 2 H PRN acetaminophen, 650 mg, q 4 H PRN LABORATORY: CBC Recent Labs 07/27/21 0631 07/26/21 0248 07/25/21 0317 07/24/21 0529 07/23/21 0044 07/22/21 0343 07/21/21 1020 WBC 10.89 9.59 12.31* 15.57* 18.08* 15.27* 13.68* HB 11.9* 11.1* 10.8* 10.4* 11.5* 12.3* 13.0 HCT 37.4* 35.2* 34.4* 34.3* 37.8* 41.8 41.8 PLT 380 379 402* 342 359 357 407* MCV 87.6 88.4 90.1 92.5 92.0 96.1 90.7 RDWCV 15.0 15.0 15.1* 15.1* 15.2* 15.5* 15.7* NEUTP -- -- -- -- -- -- 86.9 ABSNEUT -- -- -- -- -- -- 11.89* LYMPHP -- -- -- -- -- -- 4.7 MONOP -- -- -- -- -- -- 6.7 COAG: No results for input(s): APTT, INR in the last 168 hours. CMP: Recent Labs 07/27/21 0631 07/26/21 0248 07/25/21 1115 07/25/21 0317 07/24/21 0529 07/23/21 0730 07/23/21 0044 07/22/21 0958 07/22/21 0343 07/21/21 1020 GLUC 161* 143* -- 160* 417* -- (more content not included)... [facility] 07-26-2021 Note HNO ID: [id number] Author: Rosalie Dorantes DO Service: Critical Care Author Type: Resident Type: Plan of Care Filed: 07/26/2021 2:02 PM Note Text: Spoke with pt's brother, Sreekanth, and gave updates. Answered their questions to their satisfaction. Rosalie Dorantes DO Internal Medicine, PGY-2 07/26/21 2:01 PM [facility] 07-26-2021 Note HNO ID: [id number] Author: Rosalie Dorantes DO Service: Family Practice Author Type: Resident Type: Progress Notes Filed: 07/26/2021 1:59 PM Note Text: Attestation signed by Dayana Hill MD at 07/26/2021 3:32 PM [facility] STAFF PHYSICIAN NOTE OF PERSONAL INVOLVEMENT IN CARE I have reviewed the progress note obtained and documented by the resident and I personally participated in the white components. I have discussed the case and management of the patient's care. The following comments revise or confirm relevant white components of the note. HPI: Patient was seen and examined at bedside. Continues to be on AirVo and states that he is doing well. Is wondering if he can start eating and how can he improve his shortness of breath. Otherwise no new complaints. DATA: 07/26/21 0900 07/26/21 1000 07/26/21 1059 07/26/21 1100 BP: 133/66 127/71 133/73 Pulse: (!) 52 (!) 54 65 62 Resp: 15 17 25 19 Temp: 36.6 ?C (97.88 ?F) 36.6 ?C (97.88 ?F) 36.6 ?C (97.88 ?F) TempSrc: SpO2: 91% 93% 92% 91% Weight: Height: CBC with diff: WBC 9.59 07/26/2021 RBC 3.98 07/26/2021 Hemoglobin 11.1 07/26/2021 Hematocrit 35.2 07/26/2021 MCV 88.4 07/26/2021 MCH 27.9 07/26/2021 MCHC 31.5 07/26/2021 RDW-CV 15.0 07/26/2021 Platelet Count 379 07/26/2021 MPV 10.1 07/26/2021 Neut% 86.9 07/21/2021 Lymph% 4.7 07/21/2021 [place]% 6.7 07/21/2021 Baso% 0.3 07/21/2021 Abs Neut 11.89 07/21/2021 Abs [place] 0.92 07/21/2021 Abs Eosin 0.12 07/21/2021 Abs Baso 0.04 07/21/2021 Glucose (mg/dL) Date Value 07/26/2021 143 Potassium (mmol/L) Date Value 07/26/2021 4.4 Sodium (mmol/L) Date Value 07/26/2021 136 Chloride (mmol/L) Date Value 07/26/2021 96 CO2 (mmol/L) Date Value 07/26/2021 31 Creatinine (mg/dL) Date Value 07/26/2021 1.31 BUN (mg/dL) Date Value 07/26/2021 49 Anion Gap (mmol/L) Date Value 07/26/2021 9 Calcium, Total (mg/dL) Date Value 07/26/2021 8.9 Protein, Total (g/dL) Date Value 07/21/2021 7.0 Albumin (g/dL) Date Value 07/26/2021 2.8 Bilirubin, Total (mg/dL) Date Value 07/21/2021 0.3 Alkaline Phosphatase (U/L) Date Value 07/21/2021 88 AST (U/L) Date Value 07/21/2021 10 ALT (U/L) Date Value 07/21/2021 10 Glucose (mg/dL) Date Value 07/26/2021 143 Potassium (mmol/L) Date Value 07/26/2021 4.4 Sodium (mmol/L) Date Value 07/26/2021 136 Chloride (mmol/L) Date Value 07/26/2021 96 CO2 (mmol/L) Date Value 07/26/2021 31 Creatinine (mg/dL) Date Value 07/26/2021 1.31 BUN (mg/dL) Date Value 07/26/2021 49 Anion Gap (mmol/L) Date Value 07/26/2021 9 Calcium, Total (mg/dL) Date Value 07/26/2021 8.9 Fluid Balance: Intake/Output Summary (Last 24 hours) at 07/26/2021 0659 Last data filed at 07/26/2021 0400 Gross per 24 hour Intake 390 ml Output 2950 ml Net -2560 ml Last Weight: (!) 141.3 kg (311 lb 8.2 oz) (07/25/21 0651) Admit Weight: 106.6 kg (235 lb) (07/21/21 0932) DIET CARBOHYDRATE CONTROLLED Lines, Drains, and Airways Line Peripheral 07/21/21 0934 Short Right Antecubital 20 Gauge 5 days Peripheral 07/24/21 2200 Short Left Antecubital 20 Gauge 1 day Drain Indwelling Urinary Catheter 07/22/21 1300 Coude 4 days Diagnostic Work up: NT Pro BNP Date Value Ref Range Status 07/24/2021 937 (H) <125 pg/mL Final Last CT Chest - Impression Only CT CHEST W IVCON PE Exam End: 07/21/2021 12:06 PM (Final result) Impression: IMPRESSION: 1. No CT evidence of pulmonary embolism. 2. Predominately atelectasis medial right upper lobe. Prominent atelectasis at the base and right middle lobe. Near-complete collapse of the right lower lobe. Scattered subsegmental atelectasis medial left upper lobe as well as lingula and at the left lung base. 3. Underlying pneumonia in these areas is not excluded in the appropriate clinical setting. 4. Trace right-sided pleural effusion.... Complete Results Last Echocardiogram LVEF ECHO Collected: 07/25/2021 10:36 AM (Final result) Complete Results IMPRESSION: -Acute on chronic hypoxic and hypercapnic respiratory failure, remains on AirVo alternating with NIPPV overnight. -Right lung consolidation, HAP with pleural effusion,? Parapneumonic. -Acute COPD exacerbation. -On meropenem per ID. -JESSIKA on CKD. MMP. Active Hospital Problems Diagnosis Date Noted Respiratory failure (HCC) 07/21/2021 Resolved Hospital Problems No resolved problems to display. PLAN: -Continue with diuresis. -Right-sided thoracentesis at bedside today. -Antibiotics as per ID. -Wean off steroids as planned above. -Continue on insulin normal gram, endocrine consultation. -Continue to wean off oxygen as tolerated to maintain saturation above 89%. ICU Checklist Last Documented/Reviewed time: 07/26/2021 12:10 PM --------- (more content not included)... [facility] 07-25-2021 Note HNO ID: [id number] Author: Steven Castellano MD Service: Critical Care Author Type: Resident Type: Progress Notes Filed: 07/25/2021 1:06 PM Note Text: Attestation signed by Abhijit Howell MD at 07/25/2021 10:38 PM [facility] STAFF PHYSICIAN NOTE OF PERSONAL INVOLVEMENT IN CARE I have reviewed the progress note obtained and documented by the resident and I personally participated in the white components. I have discussed the case and management of the patient's care. The following comments revise or confirm relevant white components of the note. Breathing a little better. Wants more to eat. Using AirVO 60l/min and 60% FiO2 with SaO2 95%. Sputum moderate amount of thick dark green plugs. BiPAP-ST 12/8cm Rate 12 FiO2 70% Insulin gtt at 3.6 units/hr. BP 138/73 Pulse (!) 59 Temp 36.6 ?C (97.88 ?F) (Axillary) Resp 24 Ht 182.9 cm (6') Wt (!) 141.3 kg (311 lb 8.2 oz) SpO2 96% BMI 42.25 kg/m? 24 hour Intake AND Output: Intake/Output Summary (Last 24 hours) at 07/25/20212237 Last data filed at 07/25/2021 2100 Gross per 24 hour Intake 881.6 ml Output 2960 ml Net -2078.4 ml VENTILATOR INFORMATION: Settings: %FIO2: 70 EXAM: Age-appropriate obese WD WN WM on biPAP. HEENT: PERRLA/EOMI. Anicteric. Heavy facial fernandes. Partial false upper plate and fair lower dentition. Grade IV airway. NECK: No JVD LUNGS: Clear A/L but decreased throughout. No wheezing. HEART: RRR. NSR on monitor. ABDOMEN: Obese and soft and NT. +BSs. EXTREMITIES: No LE edema. 07/25/21 ECHO: Impression CONCLUSIONS: - Exam indication: Initial evaluation of Heart Failure - The left ventricle is normal in size. There is no left ventricular hypertrophy. Left ventricular systolic function is normal. EF = 60 ? 5% (2D biplane) Definity contrast used for endocardial border detection. Normal left ventricular diastolic function. - The right ventricle is normal in size. Right ventricular systolic function is normal. - The left atrial cavity is mildly dilated. - No significant valve abnormalities. - The patient has not had a prior CC echocardiographic exam for comparison. 07/24/21 CXR: RESULT: This is a limited examination due to the patient's size. Lines, tubes, and devices: None. Lungs and pleura: There is a diffuse increased opacity involving the right hemithorax suggestive of a layering right pleural effusion. There is suggestion of bilateral lower lungs infiltrates compatible with pneumonia. There is a prominent soft tissue abnormality in the medial aspect of the right apex/upper mediastinum which may represent an area of consolidation/atelectasis involving the right upper lung. Widening of the upper mediastinum due to underlying pathology cannot be excluded. A follow-up exam with chest PA and lateral views recommended. Cardiomediastinal silhouette: There is mild cardiomegaly 07/21/21 CTA Chest: Impression IMPRESSION: 1. No CT evidence of pulmonary embolism. 2. Predominately atelectasis medial right upper lobe. Prominent atelectasis at the base and right middle lobe. Near-complete collapse of the right lower lobe. Scattered subsegmental atelectasis medial left upper lobe as well as lingula and at the left lung base. 3. Underlying pneumonia in these areas is not excluded in the appropriate clinical setting. 4. Trace right-sided pleural effusion. 5. Status post coronary artery bypass graft. 6. Dilatation of the pulmonary outflow tract as can be seen with pulmonary artery hypertension. 7. Mild dilatation ascending aorta measuring up to 4.3 cm in diameter. 8. Nonunion of median sternotomy defect. DATA: BLOOD GAS: Recent Labs 07/25/21 1115 07/23/21 0730 07/22/21 0958 07/21/21 0954 VPH -- -- -- 7.315 VPC2 54 62* 63* 60.7* VPO2C 38 52* 57* 29.5 CBC: Recent Labs 07/25/21 03107/24/21 0529 07/23/21 0044 07/22/21 0343 07/21/21 1020 WBC 12.31* 15.57* 18.08* 15.27* 13.68* HB 10.8* 10.4* 11.5* 12.3* 13.0 HCT 34.4* 34.3* 37.8* 41.8 41.8 PLT 402* 342 359 357 407* MCV 90.1 92.5 92.0 96.1 90.7 RDWCV 15.1* 15.1* 15.2* 15.5* 15.7* NEUTP -- -- -- -- 86.9 ABSNEUT -- -- -- -- 11.89* LYMPHP -- -- -- -- 4.7 MONOP -- -- -- -- 6.7 COAG: No results for input(s): APTT, INR in the last 168 hours. BMP: Recent Labs 07/25/21 1115 07/25/2131607/24/21 0529 07/23/21 0730 07/23/21 0044 07/22/21 0958 07/22/21 0343 07/21/21 1020 GLUC -- 160* 417* -- 319* -- 118* 61* NA -- 135* 129* -- 132* -- 137 140 K -- 4.8 5.4* -- 5.2* -- 5.0 4.5 CHLOR -- 96* 93* -- 95* -- 100 101 CO2 30* 30 24 27 26 26 27 27 ANION -- 9 12 -- 11 -- 10 12 BUN -- 55* 55* -- 42* -- 29* 25* CREAT -- 1.52* 1.58* -- 1.74* -- 1.73* 1.52* CHEM: Recent Labs 07/25/21 1115 07/25/21 0317 07/24/21 0529 07/23/21 0730 07/23/21 0044 07/22/21 095 (more content not included)... [facility] 07-24-2021 Note HNO ID: [id number] Author: John Jay DO Service: Critical Care Author Type: Resident Type: Progress Notes Filed: 07/24/2021 5:41 PM Note Text: Attestation signed by Abhijit Howell MD at 07/24/2021 10:12 PM [facility] STAFF PHYSICIAN NOTE OF PERSONAL INVOLVEMENT IN CARE I have reviewed the progress note obtained and documented by the resident and I personally participated in the white components. I have discussed the case and management of the patient's care. The following comments revise or confirm relevant white components of the note. Breathing about the same. BiPAP-ST 12/8cm Rate 12 FiO2 80% with SaO2 89-92%. White phlegm. Now on BiPAP 14/8 with BUR of 12 FiO2 80%. SaO2 92%. BP 129/62 Pulse 61 Temp (!) 35.6 ?C (96.08 ?F) Resp 17 Ht 182.9 cm (6') Wt (!) 145.3 kg (320 lb 5.3 oz) SpO2 92% BMI 43.44 kg/m? 24 hour Intake AND Output: Intake/Output Summary (Last 24 hours) at 07/24/20212210 Last data filed at 07/24/2021 1600 Gross per 24 hour Intake 1221 ml Output 3010 ml Net -1789 ml VENTILATOR INFORMATION: Settings: %FIO2: 70 EXAM: Age-appropriate obese WD WN WM on biPAP. HEENT: PERRLA/EOMI. Anicteric. Heavy facial fernandes. Partial false upper plate and fair lower dentition. Grade IV airway. NECK: No JVD LUNGS: Clear A/L but decreased throughout. HEART: RRR. NSR on monitor. ABDOMEN: Obese and soft and NT. +BSs. EXTREMITIES: Trace CHAPLAINCY LE edema. 07/24/21 CXR: RESULT: This is a limited examination due to the patient's size. Lines, tubes, and devices: None. Lungs and pleura: There is a diffuse increased opacity involving the right hemithorax suggestive of a layering right pleural effusion. There is suggestion of bilateral lower lungs infiltrates compatible with pneumonia. There is a prominent soft tissue abnormality in the medial aspect of the right apex/upper mediastinum which may represent an area of consolidation/atelectasis involving the right upper lung. Widening of the upper mediastinum due to underlying pathology cannot be excluded. A follow-up exam with chest PA and lateral views recommended. Cardiomediastinal silhouette: There is mild cardiomegaly 07/21/21 CTA Chest: Impression IMPRESSION: 1. No CT evidence of pulmonary embolism. 2. Predominately atelectasis medial right upper lobe. Prominent atelectasis at the base and right middle lobe. Near-complete collapse of the right lower lobe. Scattered subsegmental atelectasis medial left upper lobe as well as lingula and at the left lung base. 3. Underlying pneumonia in these areas is not excluded in the appropriate clinical setting. 4. Trace right-sided pleural effusion. 5. Status post coronary artery bypass graft. 6. Dilatation of the pulmonary outflow tract as can be seen with pulmonary artery hypertension. 7. Mild dilatation ascending aorta measuring up to 4.3 cm in diameter. 8. Nonunion of median sternotomy defect. DATA: BLOOD GAS: Recent Labs 07/23/21 0730 07/22/21 0958 07/21/21 0954 VPH -- -- 7.315 VPC2 62* 63* 60.7* VPO2C 52* 57* 29.5 CBC: Recent Labs 07/24/2152807/23/214307/22/2134207/21/21 1020 WBC 15.57* 18.08* 15.27* 13.68* HB 10.4* 11.5* 12.3* 13.0 HCT 34.3* 37.8* 41.8 41.8 PLT 342 359 357 407* MCV 92.5 92.0 96.1 90.7 RDWCV 15.1* 15.2* 15.5* 15.7* NEUTP -- -- -- 86.9 ABSNEUT -- -- -- 11.89* LYMPHP -- -- -- 4.7 MONOP -- -- -- 6.7 COAG: No results for input(s): APTT, INR in the last 168 hours. BMP: Recent Labs 07/24/2152807/23/2172907/23/214307/22/2195707/22/2134207/21/21 1020 GLUC 417* -- 319* -- 118* 61* NA 129* -- 132* -- 137 140 K 5.4* -- 5.2* -- 5.0 4.5 CHLOR 93* -- 95* -- 100 101 CO2 24 27 26 26 27 27 ANION 12 -- 11 -- 10 12 BUN 55* -- 42* -- 29* 25* CREAT 1.58* -- 1.74* -- 1.73* 1.52* CHEM: Recent Labs 07/24/2152807/23/2172907/23/214307/22/2195707/22/2134207/21/21 1020 ALB 2.5* -- 3.0* -- -- 3.3* TPROT -- -- -- -- -- 7.0 CA 8.5 -- 8.8 -- 8.5 9.2 MG -- -- -- -- 2.0 2.0 ICAL -- 1.12 -- 1.20 -- -- HEPATIC: Recent Labs 07/21/21 1020 ALKPHOS 88 ALT 10 AST 10* TBILI 0.3 CARDIAC: Recent Labs 07/24/2152807/21/21 1020 PBNP 937* 872* 07/21 Blood cultures NG x 2 days 07/22 Urine Ags (-) IMPRESSION: Severe acute on chronic hypoxic and hypercapnic respiratory failure about the same. ?Atypical pulmonary edema right > left. RLL HAP AE-COPD--bronchospasm quiescent Leukocytosis somewhat down today. ATBx changed to Merrem.. Type II IDDM poorly controlled in 300-400 range JESSIKA on CKDse with Cr slightly down today. Mild hyperkalemia up to 5.4 Hyponatremia--partially related to glucose elevation PLAN: Lasix x 2 doses today IV Insulin gtt Continue ATBx for atypical PNA Decrease Solumedrol to 30mg (more content not included)... [facility] 07-24-2021 Note HNO ID: [id number] Author: Interface Note Service: ? Author Type: ? Type: Progress Notes Filed: 07/24/2021 3:10 AM Note Text: Epic Scheduled Downtime: 07/24/2021 1:08:47 AM to 07/24/2021 2:53:47 AM [facility] 07-23-2021 Note HNO ID: [id number] Author: Steven Castellano MD Service: Critical Care Author Type: Resident Type: Progress Notes Filed: 07/23/2021 2:22 PM Note Text: Attestation signed by Abhijit Howell MD at 07/23/2021 7:22 PM [facility] STAFF PHYSICIAN NOTE OF PERSONAL INVOLVEMENT IN CARE I have reviewed the progress note obtained and documented by the resident and I personally participated in the white components. I have discussed the case and management of the patient's care. The following comments revise or confirm relevant white components of the note. Says may feel a little better or about the same. CHAPLAINCY cough. No chest pain. Now on BiPAP 28/11 with BUR of 12 FiO2 80%. SaO2 92%. BP 114/58 Pulse 71 Temp 36.9 ?C (98.42 ?F) Resp 22 Ht 182.9 cm (6') Wt (!) 144.2 kg (317 lb 14.5 oz) SpO2 94% BMI 43.12 kg/m? 24 hour Intake AND Output: Intake/Output Summary (Last 24 hours) at 07/23/2021 1905 Last data filed at 07/23/2021 1100 Gross per 24 hour Intake 948.1 ml Output 745 ml Net 203.1 ml VENTILATOR INFORMATION: Settings: %FIO2: 80 EXAM: Age-appropriate obese WD WN WM on biPAP. HEENT: PERRLA/EOMI. Anicteric. Heavy facial fernandes. Partial false upper plate and fair lower dentition. Grade IV airway. NECK: No JVD LUNGS: Clear A/L HEART: RRR. NSR on monitor. ABDOMEN: Obese and soft and NT. +BSs. EXTREMITIES: No edema or rashes. 07/21/21 CTA Chest: Impression IMPRESSION: 1. No CT evidence of pulmonary embolism. 2. Predominately atelectasis medial right upper lobe. Prominent atelectasis at the base and right middle lobe. Near-complete collapse of the right lower lobe. Scattered subsegmental atelectasis medial left upper lobe as well as lingula and at the left lung base. 3. Underlying pneumonia in these areas is not excluded in the appropriate clinical setting. 4. Trace right-sided pleural effusion. 5. Status post coronary artery bypass graft. 6. Dilatation of the pulmonary outflow tract as can be seen with pulmonary artery hypertension. 7. Mild dilatation ascending aorta measuring up to 4.3 cm in diameter. 8. Nonunion of median sternotomy defect. DATA: BLOOD GAS: Recent Labs 07/23/21 0730 07/22/21 0958 07/21/21 0954 VPH -- -- 7.315 VPC2 62* 63* 60.7* VPO2C 52* 57* 29.5 CBC: Recent Labs 07/23/21 0044 07/22/21 0343 07/21/21 1020 WBC 18.08* 15.27* 13.68* HB 11.5* 12.3* 13.0 HCT 37.8* 41.8 41.8 PLT 359 357 407* MCV 92.0 96.1 90.7 RDWCV 15.2* 15.5* 15.7* NEUTP -- -- 86.9 ABSNEUT -- -- 11.89* LYMPHP -- -- 4.7 MONOP -- -- 6.7 COAG: No results for input(s): APTT, INR in the last 168 hours. BMP: Recent Labs 07/23/21 0730 07/23/21 0044 07/22/21 0958 07/22/21 0343 07/21/21 1020 GLUC -- 319* -- 118* 61* NA -- 132* -- 137 140 K -- 5.2* -- 5.0 4.5 CHLOR -- 95* -- 100 101 CO2 27 26 26 27 27 ANION -- 11 -- 10 12 BUN -- 42* -- 29* 25* CREAT -- 1.74* -- 1.73* 1.52* CHEM: Recent Labs 07/23/21 0730 07/23/21 0044 07/22/21 0958 07/22/21 0343 07/21/21 1020 ALB -- 3.0* -- -- 3.3* TPROT -- -- -- -- 7.0 CA -- 8.8 -- 8.5 9.2 MG -- -- -- 2.0 2.0 ICAL 1.12 -- 1.20 -- -- HEPATIC: Recent Labs 07/21/21 1020 ALKPHOS 88 ALT 10 AST 10* TBILI 0.3 CARDIAC: Recent Labs 07/21/21 1020 PBNP 872* /6 Blood cultures NG x 2 days 07/22 Urine Ags (-) IMPRESSION: Severe acute on chronic hypoxic and hypercapnic respiratory failure about the same. RLL HAP AE-COPD--bronchospasm quiescent Leukocytosis increasing. ?Steroid-related. Type II IDDM generally running >300 JESSIKA on CKDse with slight hyperkalemia PLAN: AM CXR Change ATBx to Mer[place] and consult ID Collect sputum CANDS Drop Solumedrol down to 30mg q12hr Increase Lantus to 45 units qAM Increase SQ Heparin to 7500 units q 8hr Patient/Family Updated: Patient, James Joyce Reyes, contacted. They were updated on the patient's goals of care, medical plan for the day, b2b sales consultant recommendations, medical disposition and current medical condition/prognosis as and if clinically indicated. All questions and concerns were answered and addressed at this juncture. No family present at the bedside. This patient has a high probability of sudden, clinically significant deterioration, which requires the highest level of physician preparedness to intervene urgently. I managed/supervised life or organ supporting interventions that required frequent physician assessment. I devoted my full attention to the direct care of this patient for the amount of time indicated below. Time I spent with family or surrogate(s) is included only if the patient was incapable of providing the necessary information or participating in medical decision making. Time devoted to teaching and to any procedures I billed separately is not included. Critical Care Documentation: The patient has the following organ (more content not included)... [facility] 07-22-2021 Note HNO ID: [id number] Author: Aydee Juarez RN Service: Care Management Author Type: Registered Nurse Type: Care Mgt Initial Assessment Filed: 07/22/2021 2:48 PM Note Text: CARE MANAGEMENT: ASSESSMENT AND DISCHARGE PLAN SERVICE DATE: July 22, 2021 SERVICE TIME: 2:37 PM PRIMARY CARE PHYSICIAN: Chelle Troncoso MD ADMISSION STATUS: Inpatient Needs Prior to Discharge: To Be Determined MEDICAL: [place] Health Insurance: Medicaid Last Discharge Date: N/A Is this Within the Past 30 days? Last discharge within 30 days: No Advance Directive: Health LiteracyHow often do you need to have someone help you when you read instructions, pamphlets, or other written material from your doctor or pharmacy? : 1 - Never How confident are you filling out medical forms by yourself?: 1 - Extremely Baseline Mental Status Prior to this Illness what was the patient's Baseline Mental Status?: Alert AND Oriented Prior to this illness, has anyone described the patient having any of the following behaviors?: Not Applicable Relationship of the informant to the patient:: Self Functional Status: Needs Assistance Does Patient Currently Receive Any Community Services or Home Care?: None Has the Patient Been in a Half-Way Facility in the Past 30 days?: Yes Location and Dates: [facility] SOCIAL: Living Arrangements: Nursing Facility Lives With: N/A Patient from Facility Financial Resources: Disabled Primary Contact: Extended Emergency Contact Information Primary Emergency Contact: SREEKANTH REYES Mobile Relation: Brother Supportive Patient Contact:: Yes Contact Resources: Family Caregiver AssessmentCaregiver is ready, willing and able to meet the patient's needs as recommended by the inter-professional team:: No Does the patient have an acute stroke diagnosis, or has the patient had a stroke during this admission?: No Patient's perception of need for this admission: resp issues Medication Adherance I am convinced of the importance of my prescription medication: 0 - Agree Completely I worry that my prescription medication will do more harm than good to me : 0 - Disagree Completely I feel financially burdened by my [id number] expenses for my prescription medication:: 0 - Disagree Completely Risk Score: 0 Patient is categorized as: Low risk < 2 Are you interested in bedside delivery of your medications? No Is Patient Psychosocially Complex?: No ASSESSMENT AND PLAN: Medical Needs: Medical Needs: None Psychosocial Needs: Psychosocial Needs: None FREEDOM OF CHOICE EXPLAINED: [place] of Choice Given: Yes POTENTIAL TRANSITION PLANS Half-Way Facility/Intermediate Care Facility Pt lives at [facility]. Pt plans to return. Facility assists with meds and meals. Pt requests call to brother Mayo [phone]. Called and left message. Pt may need O2. Message to facility to check if pt on O2. SIGNATURE: Aydee Juarez RN PATIENT NAME: James Reyes DATE: July 22, 2021 TIME: 2:37 PM PAGER/CONTACT #: [phone] [facility] 07-22-2021 Note HNO ID: [id number] Author: Abhijit Howell MD Service: Critical Care Author Type: Physician Type: Progress Notes Filed: 07/22/2021 2:48 PM Note Text: [facility] STAFF PHYSICIAN NOTE OF PERSONAL INVOLVEMENT IN CARE I have reviewed the progress note obtained and documented by the resident and I personally participated in the white components. I have discussed the case and management of the patient's care. The following comments revise or confirm relevant white components of the note. Patient seen on rounds. +SOB. Not much phlegm but congested cough. Has been refusing to wear NRBM, AirVO, and BiPAP with SaO2 82-88% on 100% NRBM. Does have home O2 and CPAP but does not wear. Smokes 1-2 PPD x 47 years. Now living in an ECF. BP 128/79 Pulse 86 Temp 36.9 ?C (98.42 ?F) Resp 16 Ht 182.9 cm (6') Wt (!) 138.6 kg (305 lb 8.9 oz) SpO2 (!) 87% BMI 41.44 kg/m? 24 hour Intake AND Output: Intake/Output Summary (Last 24 hours) at 07/22/2021 1425 Last data filed at 07/22/2021 1300 Gross per 24 hour Intake 1244 ml Output 940 ml Net 304 ml VENTILATOR INFORMATION: WEANING DATA: Settings: %FIO2: (S) 80 (Weaned as tolerated) EXAM: Awake and alert. Appropriate obese WD WN WM. Tm 38.9 HEENT: Heavily bearded. Partial false upper dentition and fair lower plate. Membranes dry and parched. No thrush or ulcers. Grade IV airway. NECK: No JVD. No LAD. LUNGS: Inspiratory crackles right base. Left clear. HEART: RRR. NSR on monitor. ABDOMEN: Obese. Soft and NT. ND. +BSs. EXTREMITIES: No edema or rashes. 07/21 CTA Chest: IMPRESSION: 1. ?No CT evidence of pulmonary embolism. 2. ?Predominately atelectasis medial right upper lobe. Prominent atelectasis at the base and right middle lobe. Near-complete collapse of the right lower lobe. Scattered subsegmental atelectasis medial left upper lobe as well as lingula and at the left lung base. 3. ?Underlying pneumonia in these areas is not excluded in the appropriate clinical setting. 4. ?Trace right-sided pleural effusion. 5. ?Status post coronary artery bypass graft. 6. ?Dilatation of the pulmonary outflow tract as can be seen with pulmonary artery hypertension. 7. ?Mild dilatation ascending aorta measuring up to 4.3 cm in diameter. 8. ?Nonunion of median sternotomy defect. DATA: 07/21 Blood cultures: NG x 1 day 07/21 Nasal PCR pending 07/22 Urine Ags (-) BLOOD GAS: Recent Labs 07/22/21 0958 07/21/21 0954 VPH -- 7.315 VPC2 63* 60.7* VPO2C 57* 29.5 CBC: Recent Labs 07/22/21 0343 07/21/21 1020 WBC 15.27* 13.68* HB 12.3* 13.0 HCT 41.8 41.8 PLT 357 407* MCV 96.1 90.7 RDWCV 15.5* 15.7* NEUTP -- 86.9 ABSNEUT -- 11.89* LYMPHP -- 4.7 MONOP -- 6.7 COAG: No results for input(s): APTT, INR in the last 168 hours. BMP: Recent Labs 07/22/2158 07/22/213 07/21/21 1020 GLUC -- 118* 61* NA -- 137 140 K -- 5.0 4.5 CHLOR -- 100 101 CO2 26 27 27 ANION -- 10 12 BUN -- 29* 25* CREAT -- 1.73* 1.52* CHEM: Recent Labs 07/22/2195707/22/2134207/21/21 1020 ALB -- -- 3.3* TPROT -- -- 7.0 CA -- 8.5 9.2 MG -- 2.0 2.0 ICAL 1.20 -- -- HEPATIC: Recent Labs 07/21/21 1020 ALKPHOS 88 ALT 10 AST 10* TBILI 0.3 CARDIAC: Recent Labs 07/21/21 1020 PBNP 872* IMPRESSION: 1. Acute on chronic hypoxic and hypercapnic respiratory falure 2. RLL HAP 3. AE-COPD 4. EJSSIKA 5. Leukocytosis 6. Type II IDDM 7. Known CADse s/p CABG 2020. 07/21/21 EKG: Impression NORMAL SINUS RHYTHM LEFT AXIS DEVIATION CANNOT RULE OUT ANTERIOR INFARCT , AGE UNDETERMINED T WAVE ABNORMALITY, CONSIDER LATERAL ISCHEMIA ABNORMAL ECG WHEN COMPARED WITH ECG OF 27-SEP-2006 13:35, VENT. RATE HAS INCREASED BY ?28 BPM NONSPECIFIC T WAVE ABNORMALITY NO LONGER EVIDENT IN ANTERIOR LEADS PLAN: 1. Encourage patient to wear BiPAP or AirVO rather than intubation. He will try this. 2. DuoNebs 3. Solumedrol 40mg bid 4. Levaquin and Vancomycin 5. Sips and Chips only for now. 6. Heparin 7. Resume home Flomax due to voiding difficulty 8. SS Insulin scale #3. 9. Restart home Lyrica 100mg tid Patient/Family Updated: Patient, James Joyce Reyes, contacted. They were updated on the patient's goals of care, medical plan for the day, b2b sales consultant recommendations, medical disposition and current medical condition/prognosis as and if clinically indicated. All questions and concerns were answered and addressed at this juncture. Discussed with patient at length. He would want intubated if necessary and all other measures have failed. This patient has a high probability of sudden, clinically significant deterioration, which requires the highest level of physician preparedness to intervene urgently. I managed/supervised life or organ supporting interventions that required frequent physician assessment. I devoted my full attention to the direct care of this patient for the amount of time indicated below. Time I (more content not included)... [facility] 07-22-2021 Note HNO ID: [id number] Author: Nancy Gong RPh Service: Pharmacy Author Type: Pharmacist Type: Plan of Care Filed: 07/22/2021 1:20 PM Note Text: PHARMACY MEDICATION REVIEW Patient Name: James Reyes : 1955 The following medications were updated within the PROCESS IMPROVEMENT ANALYST medication list: Medications ADDED to PROCESS IMPROVEMENT ANALYST medication list ? All medications below were added to the PROCESS IMPROVEMENT ANALYST medication list. Medications CHANGED on PROCESS IMPROVEMENT ANALYST medication list ? N/A Medications REMOVED from PROCESS IMPROVEMENT ANALYST medication list ? Removed all previous entries including: ? Flomax ? Simethicone ? Percocet ? Metformin ? Lovastatin ? Insulin lispro ? lantus ? Folic acid ? Fenofibrate entries ? Aspirin ? Atorvastatin ? Bisacodyl ? Ferrous sulfate Additional comments: N/A The below information represents the best possible medication history: Yes Medication history completed by: Pharmacist: Nancy Gong RPh Source of history: longterm/Other [facility] Order Summary Report Medication nonadherence identified: No barriers noted Reconciliation completed: Yes Completed by: ICU team. All PROCESS IMPROVEMENT ANALYST medications addressed by LIP Patient interested in Bedside Delivery Services or using CC OP Pharmacy at discharge? No; N/A Preferred outpatient pharmacy: [facility] [address] [place] [address] [phone] [facility] [phone] Allergies: Penicillins Unknown Teramycin [Oxytetra* Unknown Prior to Admission Medications Prescriptions Last Dose Informant Patient Reported? Taking? acetaminophen (TYLENOL) 325 mg tablet Yes Yes Sig: Take 650 mg by mouth every 6 hours as needed. aspirin 81 mg chewable tablet Yes Yes Sig: Take 81 mg by mouth once daily. atorvastatin (LIPITOR) 80 mg tablet Yes Yes Sig: Take 80 mg by mouth daily at bedtime. docusate sodium (COLACE) 100 mg capsule Yes Yes Sig: Take 100 mg by mouth twice daily. dulaglutide (TRULICITY) 1.5 mg/0.5 mL pen injector Yes Yes Sig: Inject 1.5 mg subcutaneously one time a week. Every ezetimibe (ZETIA) 10 mg tablet Yes Yes Sig: Take 10 mg by mouth once daily. famotidine (PEPCID) 20 mg tablet Yes Yes Sig: Take 20 mg by mouth daily at bedtime. fenofibrate nanocrystallized (TRICOR) 145 mg tablet Yes Yes Sig: Take 145 mg by mouth once daily. ferrous sulfate 325 mg (65 mg iron) tablet Yes Yes Sig: Take 325 mg by mouth daily with breakfast. finasteride (PROSCAR) 5 mg tablet Yes Yes Sig: Take 5 mg by mouth once daily. folic acid 1 mg tablet Yes Yes Sig: Take 1 mg by mouth once daily. guaiFENesin (MUCINEX) 600 mg 12 hr tablet Yes Yes Sig: Take 1,200 mg by mouth twice daily. insulin aspart U-100 (NOVOLOG) 100 unit/mL Yes Yes Sig: Inject 18 Units subcutaneously three times daily before meals. insulin glargine,hum.rec.anlog (LANTUS U-100 INSULIN SUBCUTANEOUS) Yes Yes Sig: Inject 98 Units subcutaneously daily at bedtime. melatonin 1 mg tablet Yes Yes Sig: Take 2 mg by mouth daily at bedtime. metoprolol succinate ER (TOPROL XL) 100 mg Yes Yes Sig: Take 100 mg by mouth once daily. oxyCODONE-acetaminophen (PERCOCET) 5-325 mg tablet Yes Yes Sig: Take by mouth every 6 hours as needed for pain. pregabalin (LYRICA) 100 mg capsule Yes Yes Sig: Take 100 mg by mouth three times daily. sodium chloride (AYR SALINE) 0.65 % nasal spray Yes Yes Sig: Use 1 [place] in the nose every 12 hours as needed (congestion). tamsulosin (FLOMAX) 0.4 mg Yes Yes Sig: Take 0.4 mg by mouth twice daily. tiZANidine (ZANAFLEX) 2 mg tablet Yes Yes Sig: Take 2 mg by mouth three times daily. Morning, afternoon, and bedtime for spasms Facility-Administered Medications: None Nancy Gong, [facility] 07/22/2021 [facility] 07-22-2021 Note HNO ID: [id number] Author: Steven Castellano MD Service: Critical Care Author Type: Resident Type: Progress Notes Filed: 07/22/2021 2:35 PM Note Text: Attestation signed by Abhijit Howell MD at 07/22/2021 11:21 PM Patient seen and examined and discussed with Dr. Castellano. Please see my Note for Impression and Plan. Medical ICU Progress Note SERVICE DATE: July 22, 2021 SERVICE TIME: 7:28 AM Admission Date: 07/21/2021 HPI: Mr. James Reyes is a 65-year-old male with PMH of: - Type 2 Diabetes Mellitus - CAD s/p CABG - MINERVA and COPD - Tobacco Abuse [1 pack per day for ~47 years] - Obesity [BMI 41.44] Mr. Reyes initially presented to the [facility] ED from [facility] on 07/21/2021 for evaluation of chest pain, dyspnea and cough, after being found to be saturating ~80% on RA. Upon initial evaluation in the ED, the patient was found to be hypoxic to ~80% requiring the use of NC and then later NRB. He was otherwise hemodynamically stable. Initial labs in the ED were significant for Glucose 56 (received amp D50), Manager Unit: 1.52, WBC: 13.68, Plt: 407, and NT-ProBNP of 872. Imaging in the ED consisted of CT-PE which demonstrated atelectasis of the medial RUL, near-complete collapse of the RLL, and scattered subsegmental atelectasis of the medial CATIA. Patient was admitted to the ICU for Respiratory Failure secondary to COPD Exacerbation. Subjective Overnight Events: When seen this AM, Mr. Reyes, states that he feels dyspneic and continues to have a nonproductive cough. He denies any chest pain this AM. Overnight, the patient was tried on CPAP, but did not tolerate it. He was transitioned to NRB this AM with improvement in saturations. He was also attempted on AirVo but did not tolerate this as well due to desaturations down to the low 80s. He was therefore transitioned to BiPAP Data Reviewed: Vitals: Tmax: 36.8. HR in the 60s. BPs in the 110s/60s. Saturating ~90% on BiPAP Micro: Blood Culture (6): No Growth at 1 Day MRSA Nares (07/21): Pending Labs: BMP Reviewed: Na: 137, K: 5.0, Bicarb: 27, Anion Gap: 10, Manager Unit: 1.73 CBC Reviewed: WBC: 15.27, Hgb: 12.3 Meds: Aspirin, Statin Heparin Duoneb Levofloxacin and Vancomycin Review of Systems Constitutional: Negative for chills, diaphoresis, fever and malaise/fatigue. HENT: Negative for congestion, hearing loss and sore throat. Eyes: Negative for blurred vision, double vision and photophobia. Respiratory: Positive for cough. Negative for hemoptysis, sputum production, shortness of breath and wheezing. Cardiovascular: Negative for chest pain, palpitations, orthopnea and leg swelling. Gastrointestinal: Negative for abdominal pain, constipation, diarrhea, nausea and vomiting. Genitourinary: Negative for dysuria, frequency and urgency. Musculoskeletal: Positive for back pain. Negative for myalgias. Neurological: Negative for dizziness, sensory change, loss of consciousness and headaches. Objective PAST MEDICAL HISTORY Diagnosis Date - Foot infection - Hypercholesterolemia - Neuropathy - Type II diabetes mellitus (HCC) PAST SURGICAL HISTORY Procedure Laterality Date - PAST SURGICAL HISTORY OF Cholecystectomy - PAST SURGICAL HISTORY OF Thyroid Tumor Removal - PAST SURGICAL HISTORY OF Left Foot medication ALLERGIES Allergen Reactions - Penicillins Unknown - Teramycin [Oxytetra* Unknown Social History Tobacco Use - Smoking status: Current Every Day Smoker Packs/day: 1.00 Types: Cigarettes - Smokeless tobacco: Never Used Substance Use Topics - Alcohol use: No - Drug use: No Sexual Activity: Not on file Family History Problem Relation Age of Onset - other (DM II) Father MEDICATIONS IV infusions: Scheduled medications vancomycin, 0.015 g/kg/dose, q 12 HR vancomycin dosing and monitoring per pharmacy, , As Directed atorvastatin, 80 mg, DAILY aspirin, enteric coated, 81 mg, DAILY levoFLOXacin, 750 mg, DAILY heparin, 5,000 Units, q 12 H sodium chloride 0.9 % (flush), 3-5 mL, q 12 H ipratropium-albuterol, 3 mL, q 4 H while awake PRN NaCl 0.9%, 20 mL, PRN iv contrast, , DIRECTED PRN acetylcysteine, 2 mL, q 20 MIN PRN potassium chloride ER, 20-40 mEq, PRN Or potassium chloride, 20 mEq, PRN magnesium sulfate, 2 g, PRN phosphorus, 500 mg, PRN(NO DISPENSE) calcium gluconate iv piggyback in NaCl 0.9% 250 mL, 4 g, PRN albuterol, 2.5 mg, q 2 H PRN acetaminophen, 650 mg, q 4 H PRN VITAL SIGNS (last 24hrs min/max): 07/22/21 0500 07/22/21 0600 07/22/21 0700 07/22/21 0800 BP: 103/51 121/60 115/60 Pulse: 70 73 66 Resp: 19 20 16 Temp: 37.1 ?C (98.78 ?F) 36.9 ?C (98.42 ?F) 36.8 ?C (98.24 ?F) TempSrc: Axillary SpO2: 90% 89% 91% Weight: Height: NET FLUID BALANCE Intake/Output Summary (Last 2 (more content not included)... [facility] 07-21-2021 Note HNO ID: [id number] Author: Juanito Morgan MD Service: Pulmonary Disease Author Type: Physician Type: Progress Notes Filed: 07/21/2021 3:58 PM Note Text: [facility] STAFF PHYSICIAN NOTE OF PERSONAL INVOLVEMENT IN CARE I have reviewed the history and physical examination obtained and documented by the resident and I personally participated in the white components. I have discussed the case and management of the patient's care. The following comments revise or confirm relevant white components of the note. IMPRESSION: Patient is a 65 year old male with hx of current smoking, suspected COPD (no PFTS on imaging withy emphysema), type II DM, neuropathy, CAD s/p CABG and MINERVA not on CPAP presenting from nursing facility with acute hypoxic respiratory failure - CT chest with significant R lung consoldiation/possible pneumonia +/- endobronchial obstruction as well as LLL consolidation. Acute hypoxic respiratory failure - HCAP versus post-obstructive pneumonia, possible endobronchial lesion Current heavy smoker MINERVA not on CPAP - sats frop to high 80's on NRB while sleeping, up to 100% when aroused Type II DM Suspected CKD stage IIIa versus JESSIKA (04/2019 Cr 1.65) CAD s/p CABG Neuropathy Pulmonary cysts PLAN: -wean O2 for sats >88% - if able to drop to 40-50% ventimask, OK for RNF - otherwise admit to ICU -can trial CPAP while asleep for MINERVA - would not use BiPAP, do not want to augment tidal volumes in setting of acute hypoxia -vanc/zosyn/doxy - can DC vanc if staph PCR negative -sputum cx, strep, legionella urine ag -f/u blood cx -mcuomyst versus hypetonic, aggressive BPH with vest/acapella -may need bronch in future to evaluate airway - can hold for now -smoking cessation -DVT ppx -full code This patient has a high probability of sudden, clinically significant deterioration, which requires the highest level of physician preparedness to intervene urgently. I managed/supervised life or organ supporting interventions that required frequent physician assessment. I devoted my full attention to the direct care of this patient for the amount of time indicated below. Time I spent with family or surrogate(s) is included only if the patient was incapable of providing the necessary information or participating in medical decision making. Time devoted to teaching is not included. Critical Care Documentation: The patient has the following organ/system impairment(s): Respiratory failure (Acute, with Hypoxemia) Patient/Family/Staff Updated Time spent providing critical care services: 40 minutes excluding procedures. SIGNATURE: Juanito Morgan MD [facility] PAGER:[phone] DATE of SERVICE: July 21, 2021 [facility] 07-21-2021 Note HNO ID: [id number] Author: Tiffany Moran [facility] Service: Pharmacy Author Type: Pharmacist Type: Progress Notes Filed: 07/21/2021 1:29 PM Note Text: Pharmacy Consult Agreement: Dose Rounding Patient Name: James Reyes Service Date: 07/21/2021 Service Time: 1:29 PM The following changes have been made to the patient's medication therapy as part of the pharmacy consult agreement. Current Therapy: 624 mg IV x 1 New Therapy: 620 mg IV x 1 Thank you for allowing me to participate in the care for this patient. Signature: Tiffany Moran [facility] Pager/Extension: [phone] [facility] 05-06-2019 Hospital Discharge instructions Barry Guadalupe MD - 05/06/2019 Discontinue lisinopril Discontinue Lasix No citrus foods Discontinue potassium chloride The following attachments cannot be sent through Care Everywhere.Hyperkalemia ([place])documented in this encounter [facility] Work Phone: 04-12-2019 Hospital Discharge instructions James Begum MD - 04/12/2019 Call your doctor for follow-up care. The following attachments cannot be sent through Care Everywhere.Back Pain ([place]an)documented in this encounter [facility] Work Phone: Evaluation note Diagnosis Acute exacerbation of chronic low back pain- Primary documented in this encounter [facility] Work Phone: Evaluation note* Diagnosis Hyperkalemia- Primary Hyperpotassemia Acute renal failure, unspecified acute renal failure type (HCC) documented in this encounter [facility] Work Phone: Evaluation note* Diagnosis Type 2 diabetes mellitus without retinopathy (HCC)- Primary Type II or unspecified type diabetes mellitus without mention of complication, not stated as uncontrolled Nonexudative age-related macular degeneration, bilateral, early dry stage Cataract, nuclear sclerotic, both eyes Senile nuclear sclerosis Papilloma of left upper eyelid Tearing eyes Epiphora, unspecified as to cause [facility] Diagnosis Irritable bowel syndrome with both constipation and diarrhea- Primary Anemia, unspecified Mixed irritable bowel syndrome Encounter for screening for malignant neoplasm of colon [facility] Diagnosis Irritable bowel syndrome with both constipation and diarrhea- Primary Anemia, unspecified Mixed irritable bowel syndrome Encounter for screening for malignant neoplasm of colon [facility] information [facility]: Evaluation note* Diagnosis Functional diarrhea- Primary [facility] Diagnosis Coronary artery disease involving [place] coronary artery of [place] heart without angina pectoris- Primary Dyslipidemia Other and unspecified hyperlipidemia [facility] Chest pain- Primary Unspecified chest pain Chest pain, unspecified type Other chest pain [facility] Diagnosis Coronary artery disease involving seneca-cayuga coronary artery of seneca-cayuga heart without angina pectoris- Primary Stable angina pectoris [facility] Diagnosis Type 2 diabetes mellitus without retinopathy (HCC)- Primary Type II or unspecified type diabetes mellitus without mention of complication, not stated as uncontrolled Nonexudative age-related macular degeneration, bilateral, early dry stage Cataract, nuclear sclerotic, both eyes Senile nuclear sclerosis [facility] Diagnosis Coronary artery disease involving seneca-cayuga coronary artery of seneca-cayuga heart without angina pectoris Stable angina pectoris (HCC) [facility] Diagnosis CAD in seneca-cayuga artery Dyslipidemia Other and unspecified hyperlipidemia [facility] Diagnosis Chronic dental caries extending to pulp- Primary Dental caries extending into pulp [facility] Diagnosis Caries- Primary Unspecified dental caries [facility] Diagnosis Chronic dental caries extending to pulp- Primary Dental caries extending into pulp [facility] Diagnosis Closed head injury, initial encounter- Primary Closed head injury, initial encounter Fall, initial encounter Pain in both knees, unspecified chronicity [facility] Diagnosis Coronary artery disease involving coronary bypass graft of seneca-cayuga heart without angina pectoris- Primary Chest pain, unspecified type Mixed hyperlipidemia [facility] Diagnosis Coronary artery disease involving seneca-cayuga coronary artery of seneca-cayuga heart without angina pectoris Other congestive heart failure (HCC) [facility] Diagnosis Irritable bowel syndrome with both constipation and diarrhea- Primary [facility] Diagnosis Recurrent UTI Urinary tract infection, site not specified documented in this encounter [facility] note* Diagnosis Elevated PSA- Primary Elevated prostate specific antigen (PSA) BPH with lower urinary tract symptoms without urinary obstruction Urge incontinence Gross hematuria Recurrent UTI Urinary tract infection, site not specified Retention of urine, unspecified Recurrent UTI Urinary tract infection, site not specified documented in this encounter [facility] note* Diagnosis Acute hypercapnic respiratory failure (HCC)- Primary Acute hypercapnic respiratory failure (HCC) Hypercapnia Other dyspnea and respiratory abnormality Hypoxia Hypoxemia documented in this encounter [facility] note* Diagnosis BPH with lower urinary tract symptoms without urinary obstruction Urge incontinence Elevated PSA Elevated prostate specific antigen (PSA) Gross hematuria [facility] Diagnosis Hematemesis- Primary Hematemesis Coffee ground emesis Hematemesis documented in this encounter [facility] for referral (narrative)No reason for referral information [facility] Work Phone: Summary Purpose Family History No Family History Records FoundNo Family History Records FoundNo Family History Records FoundNo Family History Records FoundNo Family History Records FoundNo Family History Records FoundNo Family History Records FoundNo Family History Records FoundNo Family History Records Found Advance Directives No Advanced Directives Records FoundDocuments on File Type Date Recorded Patient 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 anation DNR (Do Not Resuscitate) 10/16/2017 Date Activated Date Inactivated Comments 11/30/2023 1:00 AM Date Activated Date Inactivated Comments 04/24/2023 1:27 AM 04/24/2023 3:38 PM Documents on File Type Date Recorded Patient 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 anation Advance Directives and Living Will Power of Research Executive Latest Code Status on File Code Status Date Activated Date Inactivated Comments Full Code 10/16/2017 4:29 PM 10/30/2017 8:03 PM Full Code 10/16/2017 11:21 AM 10/16/2017 4:26 PM Full Code 08/10/2017 1:21 PM 08/16/2017 10:02 PM Full Code 08/07/2017 7:45 PM 08/10/2017 1:21 PM Full Code 08/07/2017 12:54 PM 08/07/2017 7:45 PM Latest Code Status on File Code Status Date Activated Date Inactivated Comments Full Code 07/21/2021 9:15 PM 07/28/2021 10:46 PM Full Code Order Discussed With: Patient Documents on File Type Date Recorded Patient 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 anation DNR (Do Not Resuscitate) 10/16/2017 Latest Code Status on File Code Status Date Activated Date Inactivated Comments Full Code 04/24/2023 1:27 AM 04/24/2023 3:38 PM Latest Code Status on File Code Status Date Activated Date Inactivated Comments Full Code 04/24/2023 1:27 AM 04/24/2023 3:38 PM Latest Code Status on File Code Status Date Activated Date Inactivated Comments Full Code 07/21/2021 9:15 PM 07/28/2021 10:46 PM Question Answer Comments Full Code Order Discussed With: Patient Date Activated Date Inactivated Comments 11/30/2023 1:00 AM 12/05/2023 5:33 PM Date Activated Date Inactivated Comments 04/24/2023 1:27 AM 04/24/2023 3:38 PM Date Activated Date Inactivated Comments 05/30/2024 11:42 AM Date Activated Date Inactivated Comments 11/30/2023 1:00 AM 12/05/2023 5:33 PM Date Activated Date Inactivated Comments 04/24/2023 1:27 AM 04/24/2023 3:38 PM Date Activated Date Inactivated Comments 05/30/2024 11:42 AM 06/04/2024 7:06 PM Date Activated Date Inactivated Comments 07/15/2024 3:09 PM 07/17/2024 9:09 PM Date Activated Date Inactivated Comments 05/30/2024 11:42 AM 06/04/2024 7:06 PM Date Activated Date Inactivated Comments 11/30/2023 1:00 AM 12/05/2023 5:33 PM Date Activated Date Inactivated Comments 04/24/2023 1:27 AM 04/24/2023 3:38 PM Chief Complaint and Reason for Visit Chief Complaint LABWORK SENIOR LIVING LAB WORK Chief Complaint LABWORK SENIOR LIVING LAB WORK SENIOR LIVING LABWORK Chief Complaint SENIOR LIVING LAB WOR K Chief Complaint SENIOR LIVING LAB WOR K SENIOR LIVING LAB WORK Chief Complaint Admit Date SENIOR LIVING LAB WORK March 26 5:00am LABWORK April 01, 2024 5:00am SENIOR LIVING LAB WORK May 14, 2024 7:35am SENIOR LIVING LAB WORK July 01, 2024 5 :00am Reason for Referral Specialty Diagnoses / Procedures Referred By Chely t Referred To Contact Cardiology Diagnoses Coronary artery disease involving seneca-cayuga coronary artery of seneca-cayuga heart without angina pectoris Stable angina pectoris Procedures Stress echocardiogram (TTE) dobutamine with contrast, bubble, strain, and 3D PRN order panel NJ ECHO TTHRC R-T 2D W/WO M-MODE COMPLETE REST&ST NJ ECHO TTHRC R-T 2D W/WO M-MODE REST&STRS CONT ECG NJ DOPPLER ECHOCARD PULSE WAVE W/SPECTRAL DISPLAY NJ DOP ECHOCARD COLOR FLOW VELOCITY MAPPING NJ CV STRS TST XERS&/OR RX CONT ECG W/O I&R NJ CV STRS TST XERS&/OR RX CONT ECG TRCG ONLY NJ CV STRS TST XERS&/OR RX CONT ECG I&R ONLY Mingo Gavin, PAYROLL AND BENEFITS ASSISTANT - TECHNICAL ARCHITECT [address] [place] [address] Referral ID Status Reason Start Date Expiration Date V isits Requested Visits Authorized [id number] Pending Review 05/12/2023 05/11/2024 1 1 Specialty Diagnoses / Procedures Referred By Chely t Referred To Contact Cardiology Diagnoses Coronary artery disease involving seneca-cayuga coronary artery of seneca-cayuga heart without angina pectoris Stable angina pectoris (HCC) Procedures Stress echocardiogram (TTE) dobutamine with contrast, bubble, strain, and 3D PRN order panel NJ ECHO TTHRC R-T 2D W/WO M-MODE COMPLETE REST&ST NJ ECHO TTHRC R-T 2D W/WO M-MODE REST&STRS CONT ECG NJ DOPPLER ECHOCARD PULSE WAVE W/SPECTRAL DISPLAY NJ DOP ECHOCARD COLOR FLOW VELOCITY MAPPING NJ CV STRS TST XERS&/OR RX CONT ECG W/O I&R NJ CV STRS TST XERS&/OR RX CONT ECG TRCG ONLY NJ CV STRS TST XERS&/OR RX CONT ECG I&R ONLY Mingo Gavin PAYROLL AND BENEFITS ASSISTANT - TECHNICAL ARCHITECT [address] [place] [address] Referral ID Status Reason Start Date Expiration Date Visits Re quested Visits Authorized [id number] Closed 05/12/2023 05/11/2024 1 1 Specialty Diagnoses / Procedures Referred By Chely t Referred To Contact Dentistry Diagnoses Chronic dental caries extending to pulp Rony Arriaza DMD, MD [address] [place] [address] Dentistry [address] [place] [address] Referral ID Status Reason Start Date Expiration Date V isits Requested Visits Authorized [id number] Authorized 09/14/2023 03/12/2024 3 3 Scheduling Instructions Please call the Dental Clinic at [facility] at to schedule an appointment if one was not made for you today. Specialty Diagnoses / Procedures Referred By Chely rosales Referred To Contact Oral Surgery Diagnoses Caries Procedures EXTRACTION ERUPTED TOOTH/EXR Rony Arriaza DMD, MD [address] [phone] Referral ID Status Reason Start Date Expiration Date V isits Requested Visits Authorized [id number] Pending Review 09/06/2023 09/05/2024 1 1 Scheduling Instructions If your in-clinic procedure was not scheduled for you today, please call (option 2) during normal business hours (8 am to 5 pm) on to schedule. Please allow 4 weeks time between the day of your consult to scheduling your procedure to allow the system time to process the order and receive insurance authorization. If your insurance denies all or part of your procedure, you will be contacted with [id number] costs or next steps. All self-pay payments will need to be collected in full prior to having the procedure. Please arrive 30 minutes prior to your procedure. If you are having a local anesthesia procedure: No diet restrictions the day before or day of the procedure. You may take your normal medications as instructed. No covid testing needed. You may drive yourself home afterward. If you are prescribed anxiety reducing medications for the procedure: You also MUST have a cmv driver/escort >18yrs old present to take you home after. If your provider has proposed an IV sedation procedure: Please refer to the instructions given to you at your consult appointment. You will receive a call from a nurse roughly 1 week prior to your procedure to go over any/all instructions. Question Answer What is the procedure for? Dental Please specify: Extractions, Misc. Procedures Please specify: Routine Extraction Routine Extraction--please list tooth number(s): # 29, #27, #26, # 25, # 24, #23, # 22, #21 Please Specify: Alveo W/Ext Alveo w/Ext Tooth-please list tooth number: # 29, #27, #26, # 25, # 24, #23, # 22, #21 Is Sedation Needed? Local Anesthesia Procedure Length: 60 Which area is this procedure for? 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 Other congestive heart failure (HCC) Procedures Transthoracic echocardiogram (TTE) complete with contrast, bubble, strain, and 3D PRN NJ ECHO TTHRC R-T 2D W/WOM-MODE COMPL SPEC&COLR D NJ TTE W OR WO FOL WCON,Suzy Cordova MD [address] [facility] [address] [place] [address] [facility] Non-Invasive Cardiology [address] [place] [phone] Referral ID Status Reason Start Date Expiration Date V isits Requested Visits Authorized [id number] Closed Perform Procedure 04/13/2022 10/10/2022 1 1 Additional Source Comments (unrecognized sect ion and content) No Status Records FoundNo Status Records FoundNo Status Records FoundNo Status Records FoundNo Status Records FoundNo Status Records FoundNo Status Records FoundNo Status Records FoundNo Status Records Found INFORMATION SOURCE (unrecogn ized section and content) DATE CREATED AUTHOR 01/30/2018 [facility] DATE CREATED AUTHOR AUTHOR'S ORGANIZ ATION 03/07/2018 [facility] DATE CREATED AUTHOR AUTHOR'S ORGANIZ ATION [facility] DATE CREATED AUTHOR AUTHOR'S ORGANIZ ATION 05/06/2019 [facility] DATE CREATED AUTHOR AUTHOR'S ORGANIZ ATION 07/29/2021 [facility] DATE CREATED AUTHOR AUTHOR'S ORGANIZ ATION 06/07/2023 [facility] DATE CREATED AUTHOR AUTHOR'S ORGANIZ ATION 10/12/2023 [facility] DATE CREATED AUTHOR AUTHOR'S ORGANIZ ATION 07/24/2024 [facility] DATE CREATED AUTHOR AUTHOR'S ORGANKADY ATION 07/26/2024 [facility] Source Comments (unrecognize d section and content) In the event this informatio n is protected by the Federal Confidentiality of Alcohol and Drug Abuse Patient Records regulations: The Federal rules restrict any use of the information to criminally investigate or prosecute any alcohol or drug abuse patient.[facility] the event this information is protected by the Federal Confidentiality of Alcohol and Drug Abuse Patient Records regulations: The Federal rules restrict any use of the information to criminally investigate or prosecute any alcohol or drug abuse patient.[facility] the event this information is protected by the Federal Confidentiality of Alcohol and Drug Abuse Patient Records regulations: The Federal rules restrict any use of the information to criminally investigate or prosecute any alcohol or drug abuse patient.[facility] Reason for Visit (unrecogniz ed section and content) Reason Comments Back Pain Leg Pain Hip Pain Reason Comments Abnormal Lab Reason Comments Diabetic Eye Exam Reason Comments Follow-up IBS/diarrhea..colono scopy results from July by you in [place] Reason Comments 6 Month Follow-up Coronary Artery Disease Reason Comments Chest Pain Specialty Diagnoses / Procedures Referred By Chely t Referred To Contact Diagnoses Chest pain Chest pain, unspecified type Procedures . 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 Stable angina pectoris (HCC) Procedures Stress echocardiogram (TTE) dobutamine with contrast, bubble, strain, and 3D PRN order panel NJ ECHO TTHRC R-T 2D W/WO M-MODE COMPLETE REST&ST NJ ECHO TTHRC R-T 2D W/WO M-MODE REST&STRS CONT ECG NJ DOPPLER ECHOCARD PULSE WAVE W/SPECTRAL DISPLAY NJ DOP ECHOCARD COLOR FLOW VELOCITY MAPPING NJ CV STRS TST XERS&/OR RX CONT ECG W/O I&R NJ CV STRS TST XERS&/OR RX CONT ECG TRCG ONLY NJ CV STRS TST XERS&/OR RX CONT ECG I&R ONLY Mingo Gavin, PAYROLL AND BENEFITS ASSISTANT - TECHNICAL ARCHITECT [address] [place] [address] Referral ID Status Reason Start Date Expiration Date Visits Re quested Visits Authorized [id number] Closed 05/12/2023 05/11/2024 1 1 Specialty Diagnoses / Procedures Referred By Contac t Referred To Contact Oral Surgery Diagnoses Dental caries Klever Álvarez DDS [address] [place] [address] [facility] ORAL SURGERY [address] [place] [phone] Referral ID Status Reason Start Date Expiration Date Visits Requested Visits Authorized [id number] Pending Review [facility] 12/13/2022 12/14/2023 3 3 Specialty Diagnoses / Procedures Referred By Contac t Referred To Contact Diagnoses Closed head injury, initial encounter Fall, initial encounter Procedures . Lorenza Bowles MD [address] [place] [address] [facility] [address] [place] [phone] Referral ID Status Reason Start Date Expiration Date Visits Re quested Visits Authorized [id number] 1 1 Reason Comments Fall Head Laceration Specialty Diagnoses / Procedures Referred By Contac t Referred To Contact Diagnoses Closed head injury, initial encounter Fall, initial encounter Procedures . 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 "I'm tired of wetting my pants." Urinary Frequency Unable to give a uri ne sample Reason Comments Vomiting Shortness of Breath Specialty Diagnoses / Procedures Referred By Contac t Referred To Contact Diagnoses Acute hypercapnic respiratory failure (HCC) Procedures J96.02 Haydee Willis DO [address] [place] [address] Phone: tel: fax: [facility] [address] [place] [address] Phone: tel: Referral ID Status Reason Start Date Expiration Date Visits Re quested Visits Authorized [id number] 1 1 Reason Comments Procedure Cysto Benign Prostatic Hypertrophy UTI Urinary Incontinence Reason Comments Vomiting Blood Specialty Diagnoses / Procedures Referred By Chely t Referred To Contact Diagnoses Hematemesis Procedures . Bethany Sandhu MD [address] [facility] [address] [place] [address] Phone: tel: fax: [facility] [address] [place] [address] Phone: tel: Referral ID Status Reason Start Date Expiration Date Visits Re quested Visits Authorized [id number] 1 1 Care Teams (unrecognized sec tion and content) Brim Cutter Relationship Specialty Start Date End Date Chelle Troncoso [address] [place], [place] [phone] PCP - General Family Medicine 04/28/21 Brim Cutter Relationship Specialty Start Date End Date Chelle Troncoso [address] [place] [address] [address] [place] [address] PCP - General Family Medicine 06/08/22 Brim Cutter Relationship Specialty Start Date End Date Chelle Troncoso [address] [place] [address] [address] [place] [address] PCP - General Family Medicine 06/08/22 Team Status: Inactive Member Role Status Dates Chelle GARCIA Attending Provider Active Team Status: Active Member Role Status Dates Chelle GARCIA Attending Provider Active Brim Cutter Relationship Specialty Start Date End Date Chelle Troncoso [address] [place] [address] [address] [place] [address] PCP - General Family Medicine 06/08/22 Brim Cutter Relationship Specialty Start Date End Date Chelle Troncoso [address] [place] [address] [address] [place] [address] PCP - General Family Medicine 06/08/22 Brim Cutter Relationship Specialty Start Date End Date Chelle Troncoso [address] [place] [address] [address] [place] [address] PCP - General Family Medicine 06/08/22 Brim Cutter Relationship Specialty Start Date End Date Thea, Chelle [address] [place] [address] [address] [place] [address] PCP - General Family Medicine 06/08/22 Brim Cutter Relationship Specialty Start Date End Date Chelle Troncoso [address] [place] [address] [address] [place] [address] PCP - General Family Medicine 06/08/22 Brim Cutter Relationship Specialty Start Date End Date TheaChelle [address] [place] [address] [address] [place] [address] PCP - General Family Medicine 06/08/22 Brim Cutter Relationship Specialty Start Date End Date Chelle Troncoso [address] [facility] [place] [address] PCP - General Family Medicine 04/28/21 Brim Cutter Relationship Specialty Start Date End Date TheaChelle [address] [place] [address] [address] [place] [address] PCP - General Family Medicine 06/08/22 Brim Cutter Relationship Specialty Start Date End Date Chelle Troncoso [address] [place] [address] [address] [place] [address] PCP - General Family Medicine 06/08/22 Brim Cutter Relationship Specialty Start Date End Date Rony Arriaza DMD, MD [address] [place] [address] Physician Oral & Maxillofacial Surgery 09/16/23 Brim Cutter Relationship Specialty Start Date End Date Rony Arriaza DMD, MD [address] [place] [address] Physician Oral & Maxillofacial Surgery 09/16/23 Brim Cutter Relationship Specialty Start Date End Date [facility] Reena Marixa Leanne Primary Care Provider 11/24/23 Brim Cutter Relationship Specialty Start Date End Date [facility] Marixa Leanne Primary Care Provider 11/24/23 Brim Cutter Relationship Specialty Start Date End Date Chelle Troncoso MD [address] [place] [address] [address] [place] [address] PCP - General Family Medicine 03/08/24 [facility] Marixa Rodriguez Primary Care Provider 11/24/23 Brim Cutter Relationship Specialty Start Date End Date Jose Martin Marion [address] [place] [phone] PCP - General 12/12/18 Brim Cutter Relationship Specialty Start Date End Date Jose Martin Marion [address] [place] [phone] PCP - General 12/12/18 Brim Cutter Relationship Specialty Start Date End Date Chelle Troncoso MD [address] [place] [address] [address] [place] [address] PCP - General Family Medicine 03/08/24 Pepe Marino MD [address] [facility] 3 [place] [address] Surgeon Urology 05/02/24 [facility] Marixa Rodriguez Primary Care Provider 11/24/23 Brim Cutter Relationship Specialty Start Date End Date Chelle Troncoso MD [address] [place] [address] [address] [place] [address] PCP - General Family Medicine 03/08/24 Pepe Marino MD 201 [facility] 3 [place] [address] Surgeon Urology 05/02/24 [facility] Marixa Rodriguez Primary Care Provider 11/24/23 Brim Cutter Relationship Specialty Start Date End Date Chelle Troncoso MD [address] [place] [address] [address] [place] [address] PCP - General Family Medicine 03/08/24 Pepe Marino MD [address] [address] Surgeon Urology 05/02/24 [facility] Rodriguez Primary Care Provider 11/24/23 Brim Cutter Relationship Specialty Start Date End Date Chelle Troncoso MD [address] [place] [address] [address] [place] [address] PCP - General Family Medicine 03/08/24 Pepe Marino MD 201 [facility] 3 [place] [address] Surgeon Urology 05/02/24 [facility] Marixa Rodriguez Primary Care Provider 11/24/23 Brim Cutter Relationship Specialty Start Date End Date Chelle Troncoso MD [address] [place] [address] [address] [place] [address] PCP - General Family Medicine 03/08/24 Pepe Marino MD 201 [facility] 3 [place] [address] Surgeon Urology 05/02/24 [facility] Marixa Rodriguez Primary Care Provider 11/24/23 Brim Cutter Relationship Specialty Start Date End Date Chelle Troncoso MD [address] [place] [address] [address] [place] [address] PCP - General Family Medicine 03/08/24 Pepe Marino MD [address] [address] Surgeon Urology 05/02/24 [facility] Nicky Rodriguez Primary Care Provider 11/24/23 Team Status: Inactive Member Role Status Dates Chelle GARCIA Attending Provider Active Star t: March 26, 2024 End: March 26, 2024 Team Status: Inactive Member Role Status Dates Chelle GARCIA Attending Provider Active Star t: April 01, 2024 End: April 01, 2024 Team Status: Active Member Role Status Dates Chelle GARCIA Attending Provider Active Star t: May 14, 2024 Chelle GARCIA Referring Provider Active Star t: May 14, 2024 Team Status: Inactive Member Role Status Dates Chelle GARCIA Attending Provider Active Star t: July 01, 2024 End: July 01, 2024 Goals (unrecognized section and content) Goals may be documented in a n alternate sectionGoals may be documented in an alternate sectionGoals may be documented in an alternate sectionGoals may be documented in an alternate sectionGoals may be documented in an alternate sectionGoals may be documented in an alternate section Scheduled Active and Recently Administ ered Medications (unrecognized section and content) Medication Order 04/22/2023 04/23/202304/24/2023 aspirin chewable tablet 324 mg (COMPLETED) 324 mg, Oral, Once, On Mon04/23/23 at 2030, For 1 dose 2032 (Given - Provider: Joelle Rivas RN) aspirin chewable tablet 81 mg 81 mg, Oral, Daily, First dose on Mon04/24/23 at 0800 1054 (Given - Provid er: Swati Isabel RN) atorvastatin (Lipitor) tablet 80 mg 80 mg, Oral, Daily, First dose on Mon04/24/23 at 0800 1054 (Given - Provid er: Swati Isabel RN) carvedilol (Coreg) tablet 6.25 mg 6.25 mg, Oral, 2 times daily with meals, First dose on Mon04/24/23 at 0800 1054 (Given - Provid er: Swati Isbael RN) cholestyramine (Questran) packet 4 g 4 g (1 packet), Oral, 3 times daily with meals, First dose on Mon04/24/23 at 0800 0800 (Not Given - Provider: Swati Isabel RN - Reason: NPO)1200 (Given - Provider: Swati Isabel RN) Diclofenac Sodium (Voltaren) 1 % gel 2 g 2 g, Topical, 2 times daily, First dose on Mon04/24/23 at 0120, Apply to right leg. 0120 (Canceled Entry - Provider: Automatic Discharge Provider - Comment: Automatically canceled at discontinue of medication order)1004 (Given - Provider: Swati Isabel RN) dicyclomine (Bentyl) capsule 10 mg 10 mg, Oral, 3 times daily, First dose on Mon04/24/23 at 0900 1054 (Given - Provid er: Swati Isabel RN)1400 (Canceled Entry - Provider: Automatic Discharge Provider - Comment: Automatically canceled at discontinue of medication order) ezetimibe (Zetia) tablet 10 mg 10 mg, Oral, Daily, First dose on Mon04/24/23 at 0800 famotidine (Pepcid) tablet 20 mg 20 mg, Oral, Daily, First dose on Mon04/24/23 at 0800 1054 (Given - Provid er: Swati Isabel RN) finasteride (Proscar) tablet 5 mg 5 mg, Oral, Daily, First dose on Mon04/24/23 at 0800, Women should not handle crushed or broken finasteride tablets when they are or may potentially be , due to potential risk to the fetus. Do not crush, chew, or split. 1054 (Given - Provid er: Swati Isabel RN) insulin glargine (Lantus) injection 44 Units 44 Units, SubCUTAneous, Daily, First dose on Mon04/24/23 at 0800 0757 (Given - Provid er: Annita Snell RN) Insulin Lispro (Humalog) injection 16 Units 16 Units, SubCUTAneous, 3 times daily with meals, First dose on Mon04/24/23 at 0800 0800 (Not Given - Provider: Annita Snell RN - Reason: NPO)1200 (Given - Provider: Swati Isabel RN) mometasone-formoterol (Dulera 100) 100-5 MCG/ACT inhaler 2 puff 2 puff, Inhalation, 2 times daily, First dose on Mon04/24/23 at 0800, Rinse mouth with water after use to reduce aftertaste and incidence of candidiasis. Do not swallow. 1004 (Given - Provid er: Swati Isabel RN) oxyCODONE-acetaminophen (Percocet) 5-325 MG per tablet 1 tablet (COMPLETED) 1 tablet, Oral, Once, On Mon04/23/23 at 2135, For 1 dose, Maximum dose of acetaminophen is 4000 mg from all sources in 24 hours. 2146 (Given - Provider: Joelle Rivas RN) pancrelipase (Cfu-Kwgx-Xyka) (Creon) 6000-79572 units per capsule 2 capsule 2 capsule, Oral, 3 times daily with meals, First dose on Mon04/24/23 at 0830, Administer whole with food and sufficient fluid; do not crush or chew. Contents may be sprinkled on soft acidic food (such as applesauce or bananas) if swallowed immediately without chewing. If ordered per G-tube, thoroughly mix capsule contents into acidic food (applesauce or bananas). Stir gently; do not crush spheres. Within 15 minutes of mixing, give via a 35 mL slip-tip syringe into a 16F or larger diameter tube, then flush with ~10 mL of water. 0830 (Not Given - Provider: Swati Isabel RN - Reason: NPO)1200 (Given - Provider: Swati Isabel RN) pregabalin (Lyrica) capsule 150 mg 150 mg, Oral, 2 times daily, First dose on Mon04/24/23 at 0900 1054 (Given - Provid er: Swati Isabel RN) sodium chloride 0.9% (NS) flush 5-40 mL 5-40 mL, IntraVENous, Every 12 hours, First dose on Mon04/24/23 at 0130, For Line Patency: Peripheral IV = 5 mL; Midline or Central Line = 10 mL/lumen. If following IV push medication, administer flush at same rate as the IV push. Flush volume is determined by type of infusion therapy being given. For non-viscous solutions use: Peripheral IV = 5 mL Midline or Central Line = 10 mL/lumen For viscous solutions (i.e. blood components, parenteral nutrition, contrast media, or after obtaining blood sample) use: Peripheral IV = 10 mL Midline or Central Line = 20 mL/lumen 0210 (Given - Provid er: Joelle Rivas RN)1330 (Canceled Entry - Provider: Swati Isabel RN) tamsulosin (Flomax) 24 hr capsule 0.4 mg 0.4 mg, Oral, 2 times daily, First dose on Mon04/24/23 at 0600, Do not crush, chew, or split. 0652 (Given - Provid er: Joelle Rivas RN)1500 (Canceled Entry - Provider: Automatic Discharge Provider - Comment: Automatically canceled at discontinue of medication order) tiotropium (Spiriva) 18 MCG per inhalation capsule 18 mcg 18 mcg (1 capsule), Inhalation, Daily, First dose on Mon04/24/23 at 0800, Not for oral use. To ensure drug delivery the contents of each capsule should be inhaled twice. 1004 (Given - Provid er: Swati Isabel RN) PRN Medication Order 04/22/2023 04/23/2023 04/24/2023 acetaminophen (Tylenol) suppository 650 mg(Linked Group 1) 650 mg, Rectal, Every 6 hours PRN, mild pain (1-3), fever, For temp greater than 100.4 F (38 C), Starting on Mon04/24/23 at 0127, Administer if oral route cannot be used. Maximum dose of acetaminophen is 4000 mg from all sources in 24 hours. acetaminophen (Tylenol) tablet 650 mg(Linked Group 1) 650 mg, Oral, Every 6 hours PRN, mild pain (1-3), fever, For temp greater than 100.4 F (38 C), Starting on Mon04/24/23 at 0127, Maximum dose of acetaminophen is 4000 mg from all sources in 24 hours. dextrose 5 % infusion 100 mL/hr, IntraVENous, PRN, Blood sugar less than 70mg/dL, Starting on Mon04/24/23 at 0127, Start infusion following administration of dextrose 50% or glucagon. dextrose 50 % solution 12.5 g 12.5 g, IntraVENous, PRN, low blood sugar, Blood glucose less than 70 mg/dL and patient NOT ALERT or NPO., Starting on Mon04/24/23 at 0127, If patient does not respond within 5 minutes, repeat dose x1. Start D5W at 100 mL/hour until ordering provider can be reached. Repeat blood glucose in 15 minutes. If blood glucose is less than 70 mg/dL, repeat treatment and recheck blood glucose in 15 minutes x2. If using Glucostabilizer, dose as instructed per system. glucagon (human recombinant) injection 1 mg 1 mg, IntraMUSCular, PRN, low blood sugar, Blood glucose less than 70 mg/dL and patient NOT ALERT or NPO and does not have IV access., Starting on Mon04/24/23 at 0127, After administration, attempt intravenous access and start D5W at 100 mL/hr. Repeat blood glucose in 15 minutes x2 and notify provider. glucose oral gel 15 g 15 g, Oral, As needed, low blood sugar, Starting on Mon04/24/23 at 0127, If blood glucose less than 50 mg/dL and patient ALERT and NOT NPO, give 2 tubes glucose gel. If blood glucose less than 70 mg/dL and patient ALERT and NOT NPO, give 1 tube glucose gel. Repeat blood glucose in 15 minutes. If blood glucose is less than 70 mg/dL, repeat treatment and recheck blood glucose in 15 minutes x2 and notify provider. naloxone (Narcan) injection 0.4 mg 0.4 mg, IntraVENous, Every 5 min PRN, opioid reversal, respiratory depression, Starting on Mon04/24/23 at 0143, +++ For RR <10, pinpoint pupils, over sedation for opioid reversal - MUST notify ship's electronic warfare officer provider immediately after first dose, may give IM or SQ if no IV access +++ nitroglycerin (Nitrostat) SL tablet 0.4 mg 0.4 mg, SubLINGual, Every 5 min PRN, chest pain, Starting on Mon04/24/23 at 0127, Give every 5 minutes as needed for chest pain to a maximum of 3 doses. Notify MD and obtain EKG if no relief after 3 doses or chest pain recurs. HOLD and notify MD if SBP less than 90 mmHg. Do not give if nitroglycerin infusion running concurrently. Do not give within 24 hours of sildenafil citrate (Viagra) or vardenafil (Levitra) use, or within 48 hours of tadalafil (Cialis) use. ondansetron (Zofran) injection 4 mg(Linked Group 2) 4 mg, IntraVENous, Every 6 hours PRN, nausea, vomiting, Starting on Mon04/24/23 at 0127, Administer if oral route cannot be used. ondansetron ODT (Zofran-ODT) disintegrating tablet 4 mg(Linked Group 2) 4 mg, Oral, Every 8 hours PRN, nausea, vomiting, Starting on Mon04/24/23 at 0127, Patient should allow tablet to dissolve on tongue. Do not remove from blister pack until just before administering. oxyCODONE (Roxicodone) immediate release tablet 10 mg 10 mg, Oral, Every 4 hours PRN, severe pain (7-10), Starting on Mon04/24/23 at 0143 0212 (Given - Provid er: Joelle Rivas RN)0652 (Given - Provider: Joelle Rivas RN) oxyCODONE (Roxicodone) immediate release tablet 5 mg 5 mg, Oral, Every 4 hours PRN, moderate pain (4-6), Starting on Mon04/24/23 at 0142 polyethylene glycol (PEG) 3350 (Miralax) packet 17 g 17 g, Oral, Daily PRN, constipation, Starting on Mon04/24/23 at 0127, 1st line for treatment of constipation - give scheduled if no bowel movement in past 24 hours. sodium chloride 0.9 % infusion 5-250 mL/hr, IntraVENous, PRN, if patient receiving piggyback infusions and maintenance fluids are not ordered OR KVO fluids to protect IV site / prevent frequent line interruptions / long duration, Starting on Mon04/24/23 at 0127, For piggyback infusion, administer at same rate as piggyback for a total of 25 mL. Enter 25 mL into dose field and piggyback rate into rate field of order. If piggyback is infusing at a rate less than 100 mL/hr, enter 25 mL into dose field and 100 mL/hr into rate field of order. For KVO fluids, enter rate of 20 mL/hr or less into rate field of order. sodium chloride 0.9% (NS) flush 5-40 mL 5-40 mL, IntraVENous, PRN, line care, After every IV line use, Starting on Mon04/24/23 at 0127, For Line Patency: Peripheral IV = 5 mL; Midline or Central Line = 10 mL/lumen. If following IV push medication, administer flush at same rate as the IV push. Flush volume is determined by type of infusion therapy being given. For non-viscous solutions use: Peripheral IV = 5 mL Midline or Central Line = 10 mL/lumen For viscous solutions (i.e. blood components, parenteral nutrition, contrast media, or after obtaining blood sample) use: Peripheral IV = 10 mL Midline or Central Line = 20 mL/lumen Linked Groups Order Group 1: acetaminophen (Tylenol) tablet 650 mgJump to med 650 mg, Oral, Every 6 hours PRN, mild pain (1-3), fever, For temp greater than 100.4 F (38 C), Starting on Mon04/24/23 at 0127, Maximum dose of acetaminophen is 4000 mg from all sources in 24 hours. Or acetaminophen (Tylenol) suppository 650 mgJump to med 650 mg, Rectal, Every 6 hours PRN, mild pain (1-3), fever, For temp greater than 100.4 F (38 C), Starting on Mon04/24/23 at 0127, Administer if oral route cannot be used. Maximum dose of acetaminophen is 4000 mg from all sources in 24 hours. Group 2: ondansetron ODT (Zofran-ODT) disintegrating tablet 4 mgJump to med 4 mg, Oral, Every 8 hours PRN, nausea, vomiting, Starting on Mon04/24/23 at 0127, Patient should allow tablet to dissolve on tongue. Do not remove from blister pack until just before administering. Or ondansetron (Zofran) injection 4 mgJump to med 4 mg, IntraVENous, Every 6 hours PRN, nausea, vomiting, Starting on Mon04/24/23 at 0127, Administer if oral route cannot be used. Scheduled Medication Order 12/03/2023 12/04/2023 12/05/2023 aspirin chewable tablet 81 mg 81 mg, Oral, Daily, First dose on Meagan 11/30/23 at 0800 0855 (Given - Provider: Starla Marte RN) 0829 (Given - Provider: Santa English, RN) 0800 (Given - Provider: Romario Luna, RN) atorvastatin (Lipitor) tablet 80 mg 80 mg, Oral, Daily, First dose on Mon11/30/23 at 0800 0845 (Given - Provider: Starla Marte RN) 0829 (Given - Provider: Santa English, MARLEY) 0854 (Given - Provider: Romario Luna, RN) carvedilol (Coreg) tablet 6.25 mg (CANCELED) 6.25 mg, Oral, 2 times daily with meals, First dose on Meagan 11/30/23 at 0800 0845 (Given - Provider: Starla Marte RN)1709 (Given - Provider: Starla Marte RN) cefTRIAXone (Rocephin) 1,000 mg in sodium chloride 0.9 % 50 mL IVPB Mini-Bag Plus 1,000 mg, IntraVENous, at 100 mL/hr, Administer over 30 Minutes, Every 24 hours, First dose on Mon12/04/23 at 1300, Mini-Bag Plus bag, Suspected Indication (Select all that apply): Urinary Tract Infection 1251 (New Bag - Provider: Santa English RN)1321 (Stopped - Provider: Santa English, MARLEY) 1242 (New Bag - Provider: Romario Luna, MARLEY)1312 (Stopped - Provider: Romario Luna, MARLEY) cholestyramine (Questran) packet 4 g 4 g (1 packet), Oral, 3 times daily with meals, First dose on Meagan 11/30/23 at 0800 0844 (Given - Provider: Starla Marte RN)1238 (Given - Provider: Starla Marte RN)1709 (Given - Provider: Starla Marte RN) 0828 (Given - Provider: Santa English, MARLEY)1200 (Not Given - Provider: Santa English RN - Reason: Patient/family refused)1644 (Given - Provider: Santa English RN) 0854 (Given - Provider: Romario Luna, MARLEY)1242 (Given - Provider: Romario Luna RN)1700 (Canceled Entry - Provider: Automatic Discharge Provider - Comment: Automatically canceled at discontinue of medication order) cilostazol (Pletal) tablet 50 mg 50 mg, Oral, 2 times daily, First dose on Meagan 11/30/23 at 0115 0845 (Given - Provider: Starla Marte RN)2016 (Given - Provider: Mamta Lai RN) 0828 (Given - Provider: Santa English, MARLEY)2130 (Given - Provider: Kel Balderas, MARLEY) 0856 (Given - Provider: Romario Luna RN) cyanocobalamin (Vitamin B-12) injection 1,000 mcg 1,000 mcg, IntraMUSCular, Every 30 days, First dose on Mon12/01/23 at 0900 dicyclomine (Bentyl) capsule 10 mg 10 mg, Oral, 3 times daily, First dose on Meagan 11/30/23 at 0900 0844 (Given - Provider: Starla Marte RN)1532 (Given - Provider: Starla Marte RN)2012 (Given - Provider: Mamta Lai RN) 0830 (Given - Provider: Santa English RN)1400 (Given - Provider: Santa English RN)2100 (Given - Provider: Kel Balderas RN) 0854 (Given - Provider: Romario Luna, MARLEY)1400 (Not Given - Provider: Romario Luna RN - Reason: Patient/family refused) enoxaparin (Lovenox) syringe 40 mg 40 mg, SubCUTAneous, Every 24 hours scheduled (Daily), First dose on Meagan 11/30/23 at 0900, Indication of Use: Prophylaxis-DVT/PE, Indications: Prophylaxis of Venous Thromboembolism 0845 (Given - Provider: Starla Marte RN) 0828 (Given - Provider: Santa English RN) 0855 (Given - Provider: Romario Luna, RN) ezetimibe (Zetia) tablet 10 mg 10 mg, Oral, Nightly, First dose on Meagan 11/30/23 at 0115 2027 (Given - Provider: Mamta Lai, RN) 2129 (Given - Provider: Kel Balderas, RN) famotidine (Pepcid) tablet 20 mg 20 mg, Oral, Daily, First dose on Meagan 11/30/23 at 0800 0844 (Given - Provider: Starla Marte RN) 0829 (Given - Provider: Santa English, MARLEY) 0854 (Given - Provider: Romario Luna, MARLEY) finasteride (Proscar) tablet 5 mg 5 mg, Oral, Daily, First dose on Meagan 11/30/23 at 0800, Women should not handle crushed or broken finasteride tablets when they are or may potentially be , due to potential risk to the fetus. Do not crush, chew, or split. 0845 (Given - Provider: Starla Marte RN) 0829 (Given - Provider: Santa English RN) 0855 (Given - Provider: Romario Luna, MARLEY) fluticasone (Flonase) nasal spray 1 spray 1 spray, Each Nostril, Daily, First dose on Meagan 11/30/23 at 0900, Shake gently. Before first use, prime pump (press 6 times until fine spray appears). After use, clean tip and replace cap. 0900 (Not Given - Provider: Starla Marte RN - Reason: Patient/family refused) 0831 (Given - Provider: Santa English, MARLEY) 0900 (Given - Provider: Romario Luna, MARLEY) insulin glargine (Lantus) injection 48 Units 48 Units, SubCUTAneous, Daily, First dose on Meagan 11/30/23 at 0800 2011 (Given - Provider: Mamta Lai, MARLEY) 2029 (Given - Provider: Kel Balderas, RN) Insulin Lispro (Humalog) injection 16 Units 16 Units, SubCUTAneous, 3 times daily with meals, First dose on Meagan 11/30/23 at 0800 0845 (Given - Provider: Starla Marte RN)1238 (Given - Provider: Starla Marte RN)1709 (Given - Provider: Starla Marte RN) 0906 (Given - Provider: Santa English RN)1248 (Given - Provider: Santa English RN)1644 (Given - Provider: Santa English RN) 0800 (Not Given - Provider: Romario Luna RN - Reason: Contraindicated - Comment: concern for hypoglycemia)1243 (Given - Provider: Romario Luna RN)1700 (Canceled Entry - Provider: Automatic Discharge Provider - Comment: Automatically canceled at discontinue of medication order) mometasone-formoterol (Dulera 200) 200-5 MCG/ACT inhaler 2 puff 2 puff, Inhalation, 2 times daily, First dose on Meagan 11/30/23 at 0115, Rinse mouth with water after use to reduce aftertaste and incidence of candidiasis. Do not swallow. 0846 (Given - Provider: Starla Marte RN)203 (Given - Provider: Mamta Lai RN) 0831 (Given - Provider: Santa English RN)2030 (Given - Provider: Kel Balderas RN) 0902 (Given - Provider: Romario Luna RN) pancrelipase (Orq-Sgxp-Ojin) (Creon) 6000-05700 units per capsule 2 capsule 2 capsule, Oral, 3 times daily with meals, First dose on Meagan 11/30/23 at 0800, Administer whole with food and sufficient fluid; do not crush or chew. Contents may be sprinkled on soft acidic food (such as applesauce or bananas) if swallowed immediately without chewing. If ordered per G-tube, thoroughly mix capsule contents into acidic food (applesauce or bananas). Stir gently; do not crush spheres. Within 15 minutes of mixing, give via a 35 mL slip-tip syringe into a 16F or larger diameter tube, then flush with ~10 mL of water. 0844 (Given - Provider: Starla Marte RN)1238 (Given - Provider: Starla Marte RN)1709 (Given - Provider: Starla Marte RN) 0831 (Given - Provider: Santa English RN)1249 (Given - Provider: Santa English RN)1645 (Given - Provider: Santa English RN) 0855 (Given - Provider: Romario Luna, MARLEY)1244 (Given - Provider: Romario Luna RN)1700 (Canceled Entry - Provider: Automatic Discharge Provider - Comment: Automatically canceled at discontinue of medication order) pregabalin (Lyrica) capsule 150 mg 150 mg, Oral, 2 times daily, First dose on Meagan 11/30/23 at 0115 0844 (Given - Provider: Starla Marte RN)2011 (Given - Provider: Mamta Lai RN) 0828 (Given - Provider: Santa English RN)2150 (Given - Provider: Kel Balderas RN) 0854 (Given - Provider: Romario Luna RN) tamsulosin (Flomax) 24 hr capsule 0.4 mg 0.4 mg, Oral, 2 times daily, First dose on Meagan 11/30/23 at 0600, Do not crush, chew, or split. 0518 (Given - Provider: Mamta Lai RN)1709 (Given - Provider: Starla Marte RN) 0829 (Given - Provider: Santa English RN)1657 (Given - Provider: Santa English RN - Comment: patient prefer to take with dinner) 0854 (Given - Provider: Romario Luna, MARLEY) tiotropium (Spiriva Respimat) 2.5 MCG/ACT inhaler 2 puff 2 puff, Inhalation, Daily, First dose on Meagan 11/30/23 at 0900 0846 (Given - Provider: Starla Marte RN) 0831 (Given - Provider: Santa English, MARLEY) 0900 (Given - Provider: Romario Luna, MARLEY) Continuous Medication Order 12/03/2023 12/04/2023 12/05/2023 sodium chloride 0.9 % infusion 50 mL/hr, IntraVENous, Continuous, Starting on Meagan 11/30/23 at 0115 0614 (New Bag - Provider: Mamta Lai RN)0842 (Rate/Dose Verify - Provider: Starla Dyshko, RN) 0241 (New Bag - Provider: Mamta Lai RN) PRN Medication Order 12/03/2023 12/04/2023 12/05/2023 acetaminophen (Tylenol) suppository 650 mg(Linked Group 1) 650 mg, Rectal, Every 6 hours PRN, mild pain (1-3), fever, For temp greater than 100.4 F (38 C), Starting on Meagan 11/30/23 at 0059, Administer if oral route cannot be used. Maximum dose of acetaminophen is 4000 mg from all sources in 24 hours. 1709 (See Alternative - Provider: Starla Marte RN) 0243 (See Alternative - Provider: Mamta Lai RN)1258 (See Alternative - Provider: Santa English RN) 0854 (See Alternative - Provider: Romario Luna RN) acetaminophen (Tylenol) tablet 650 mg(Linked Group 1) 650 mg, Oral, Every 6 hours PRN, mild pain (1-3), fever, For temp greater than 100.4 F (38 C), Starting on Mon11/30/23 at 0059, Maximum dose of acetaminophen is 4000 mg from all sources in 24 hours. 1709 (Given - Provider: Starla Marte RN) 0243 (Given - Provider: Mamta Lai RN)1258 (Given - Provider: Santa English RN) 0854 (Given - Provider: Romario Luna RN) albuterol (2.5 MG/3ML) 0.083% nebulizer solution 2.5 mg 2.5 mg, Nebulization, 3 times daily PRN, wheezing, Starting on Mon11/30/23 at 1545 bisacodyl (Dulcolax) suppository 10 mg 10 mg, Rectal, Daily PRN, constipation, Starting on Mon11/30/23 at 0059, 2nd line for treatment of constipation - give scheduled (in addition to 1st line agent) if no bowel movement in past 48 hours dextrose 5 % infusion 100 mL/hr, IntraVENous, PRN, Blood sugar less than 70mg/dL, Starting on Mon11/30/23 at 0100, Start infusion following administration of dextrose 50% or glucagon. dextrose 50 % solution 12.5 g 12.5 g, IntraVENous, PRN, low blood sugar, Blood glucose less than 70 mg/dL and patient NOT ALERT or NPO., Starting on Mon11/30/23 at 0100, If patient does not respond within 5 minutes, repeat dose x1. Start D5W at 100 mL/hour until ordering provider can be reached. Repeat blood glucose in 15 minutes. If blood glucose is less than 70 mg/dL, repeat treatment and recheck blood glucose in 15 minutes x2. If using Glucostabilizer, dose as instructed per system. glucagon (human recombinant) injection 1 mg 1 mg, IntraMUSCular, PRN, low blood sugar, Blood glucose less than 70 mg/dL and patient NOT ALERT or NPO and does not have IV access., Starting on Mon11/30/23 at 0100, After administration, attempt intravenous access and start D5W at 100 mL/hr. Repeat blood glucose in 15 minutes x2 and notify provider. glucose oral gel 15 g 15 g, Oral, As needed, low blood sugar, Starting on Mon11/30/23 at 0100, If blood glucose less than 50 mg/dL and patient ALERT and NOT NPO, give 2 tubes glucose gel. If blood glucose less than 70 mg/dL and patient ALERT and NOT NPO, give 1 tube glucose gel. Repeat blood glucose in 15 minutes. If blood glucose is less than 70 mg/dL, repeat treatment and recheck blood glucose in 15 minutes x2 and notify provider. labetalol (Normodyne,Trandate) injection 10 mg 10 mg, IntraVENous, Every 10 min PRN, high blood pressure, Starting on Mon11/30/23 at 0059, Administer 10 mg IV every 10 minutes if SBP is 220 mmHg or greater OR DBP is 120 mmHg or greater. Notify provider if SBP is 220 mmHg or greater OR DBP is 120 mmHg or greater after 3 consecutive doses. methyl salicylate-menthol (Bengay) 10-15 % greaseless cream Apply externally, Every 12 hours PRN, lower back, Starting on Mon11/30/23 at 0831 0846 (Given - Provider: Starla Marte, MARLEY)2012 (Given - Provider: Mamta Lai RN) naloxone (Narcan) injection 0.4 mg 0.4 mg, IntraVENous, Every 5 min PRN, opioid reversal, respiratory depression, Starting on Mon11/30/23 at 1329, +++ For RR <10, pinpoint pupils, over sedation for opioid reversal - MUST notify ship's electronic warfare officer provider immediately after first dose, may give IM or SQ if no IV access +++ ondansetron (Zofran) injection 4 mg(Linked Group 2) 4 mg, IntraVENous, Every 6 hours PRN, nausea, vomiting, Starting on Meagan 11/30/23 at 0059, 1st Line. Give IV if patient is unable to take orally. If inadequate response within 60 minutes, proceed to next-line agent or contact provider if no further options ordered. ondansetron ODT (Zofran-ODT) disintegrating tablet 4 mg(Linked Group 2) 4 mg, Oral, Every 8 hours PRN, nausea, vomiting, Starting on Meagan 11/30/23 at 0059, 1st Line. If inadequate response within 60 minutes, proceed to next-line agent or contact provider if no further options ordered. Patient should allow tablet to dissolve on tongue. Do not remove from blister pack until just before administering. oxyCODONE-acetaminophen (Percocet) 5-325 MG per tablet 1 tablet 1 tablet, Oral, Every 6 hours PRN, severe pain (7-10), Starting on Meagan 11/30/23 at 1320, Maximum dose of acetaminophen is 4000 mg from all sources in 24 hours. 0518 (Given - Provider: Mamta Lai RN)1241 (Given - Provider: Starla Marte RN)2011 (Given - Provider: Mamta Lai RN) 1651 (Given - Provider: Santa English RN)2231 (Given - Provider: Kel Balderas RN) 0526 (Given - Provider: Kel Balderas RN) polyethylene glycol (PEG) 3350 (Miralax) packet 17 g 17 g, Oral, Daily PRN, constipation, Starting on Meagan 11/30/23 at 0059, 1st line for treatment of constipation - give scheduled if no bowel movement in past 24 hours. 0843 (Given - Provider: tSarla Marte RN) Linked Groups Order Group 1: acetaminophen (Tylenol) tablet 650 mgJump to med 650 mg, Oral, Every 6 hours PRN, mild pain (1-3), fever, For temp greater than 100.4 F (38 C), Starting on Meagan 11/30/23 at 0059, Maximum dose of acetaminophen is 4000 mg from all sources in 24 hours. Or acetaminophen (Tylenol) suppository 650 mgJump to med 650 mg, Rectal, Every 6 hours PRN, mild pain (1-3), fever, For temp greater than 100.4 F (38 C), Starting on Meagan 11/30/23 at 0059, Administer if oral route cannot be used. Maximum dose of acetaminophen is 4000 mg from all sources in 24 hours. Group 2: ondansetron ODT (Zofran-ODT) disintegrating tablet 4 mgJump to med 4 mg, Oral, Every 8 hours PRN, nausea, vomiting, Starting on Meagan 11/30/23 at 0059, 1st Line. If inadequate response within 60 minutes, proceed to next-line agent or contact provider if no further options ordered. Patient should allow tablet to dissolve on tongue. Do not remove from blister pack until just before administering. Or ondansetron (Zofran) injection 4 mgJump to med 4 mg, IntraVENous, Every 6 hours PRN, nausea, vomiting, Starting on Meagan 11/30/23 at 0059, 1st Line. Give IV if patient is unable to take orally. If inadequate response within 60 minutes, proceed to next-line agent or contact provider if no further options ordered. Scheduled Medication Order 06/02/2024 06/03/2024 06/04/2024 aspirin EC tablet 81 mg 81 mg, Oral, Daily, First dose on Mon05/31/24 at 0900, Do not crush, chew, or split. 0829 (Given - Provider: Ghassan Rodriguez RN) 0906 (Given - Provider: Arcadio Naylor RN) 0937 (Given - Provider: Tish Diaz RN) carvedilol (Coreg) tablet 6.25 mg 6.25 mg, Oral, 2 times daily with meals, First dose on Meagan 05/30/24 at 1700 0829 (Given - Provider: Ghassan Rodriguez RN)1704 (Given - Provider: Ghassan Rodriguez RN) 0908 (Given - Provider: Arcadio Naylor RN)1718 (Given - Provider: Arcadio Naylor RN) 0937 (Given - Provider: Tish Diaz RN)1700 (Canceled Entry - Provider: Automatic Discharge Provider - Comment: Automatically canceled at discontinue of medication order) enoxaparin (Lovenox) syringe 30 mg 30 mg, SubCUTAneous, Every 12 hours scheduled (2 times per day), First dose on Mon05/30/24 at 1145, Indication of Use: Prophylaxis-DVT/PE 0829 (Given - Provider: Ghassan Rodriguez RN)2205 (Given - Provider: Landy Brink RN) 09 (Given - Provider: Arcadio Naylor RN)2119 (Given - Provider: Landy Brink RN) 0944 (Given - Provider: Tish Diaz, MARLEY) guaiFENesin (Mucinex) 12 hr tablet 600 mg 600 mg, Oral, 2 times daily, First dose on Mon05/30/24 at 1145, Administer with plenty of fluids to ensure proper action. Do not crush, chew, or split. 08 (Given - Provider: Ghassan Rodriguez RN)2206 (Given - Provider: Landy Brink RN) 09 (Given - Provider: Arcadio Naylor RN)2119 (Given - Provider: Landy Brink RN) 0900 (Not Given - Provider: Tish Diaz RN - Reason: Medication not available) insulin glargine (Lantus) injection 44 Units 44 Units, SubCUTAneous, Nightly, First dose on Mon05/30/24 at 2100 2206 (Given - Provider: Landy Brink RN) 2120 (Given - Provider: Landy Brink, MARLEY) Insulin Lispro (Humalog) injection 0-12 Units 0-12 Units, SubCUTAneous, 3 times daily with meals, First dose on Mon05/31/24 at 1200, <180 = 0 units 181-230 = 2 units 231-280 = 4 units 281-330 = 6 units 331-380 = 8 units 381-430 = 10 units >430 = 12 units 0800 (Not Given - Provider: Ghassan Rodriguez RN - Reason: Order parameters not met)1227 (Given - Provider: Ghassan Rodriguez RN)1700 (Not Given - Provider: Ghassan Rodriguez RN - Reason: Order parameters not met) 0800 (Not Given - Provider: Arcadio Naylor RN - Reason: Order parameters not met)1200 (Not Given - Provider: Arcadio Naylor RN - Reason: Order parameters not met)1717 (Given - Provider: Arcadio Naylor RN) 0800 (Not Given - Provider: Tish Diaz RN - Reason: Order parameters not met - Comment: bs 126)1235 (Given - Provider: Tish Diaz RN)1700 (Canceled Entry - Provider: Automatic Discharge Provider - Comment: Automatically canceled at discontinue of medication order) Insulin Lispro (Humalog) injection 16 Units 16 Units, SubCUTAneous, 3 times daily with meals, First dose (after last modification) on 06/01/24 at 1700 0829 (Given - Provider: Ghassan Rodriguez, RN)1227 (Given - Provider: Ghassan Rodriguez RN)1704 (Given - Provider: Ghassan Rodriguez RN) 0907 (Given - Provider: Arcadio Naylor RN)1235 (Given - Provider: Arcadio Naylor RN)1718 (Given - Provider: Arcadio Naylor RN) 0800 (Not Given - Provider: Tish Diaz RN - Reason: Contraindicated - Comment: bs [phone])1235 (Given - Provider: Tish Diaz RN)1700 (Canceled Entry - Provider: Automatic Discharge Provider - Comment: Automatically canceled at discontinue of medication order) ipratropium-albuterol (Duo-Neb) 0.5-2.5 mg/3 mL nebulizer solution 3 mL (CANCELED) 3 mL, Nebulization, 4 times daily, First dose (after last modification) on 06/02/24 at 0800 0936 (Given - Provider: Nancy Rios RCP)1313 (Given - Provider: Nancy Rios RCP) ipratropium-albuterol (Duo-Neb) 0.5-2.5 mg/3 mL nebulizer solution 3 mL 3 mL, Nebulization, 3 times daily, First dose (after last modification) on 06/02/24 at 2000 2050 (Given - Provider: Grecia Martel RCP) 0932 (Not Given - Provider: Carolin Mac RCP - Reason: Other - Comment: pt request to come back later. informed pt that RT will return around 1200. pt was ok with this)1651 (Given - Provider: Carolin Mac RCP)2231 (Given - Provider: Amador Gupta RCP - Comment: RT busy) 0833 (Given - Provider: Nicholas Escobar RCP)1213 (Given - Provider: Nicholas Escobar RCP) mupirocin (Bactroban) 2 % ointment 1 Application (COMPLETED) 1 Application, Nasal, 2 times daily, First dose on Meagan 05/30/24 at 1145, For 5 days, Indications: MRSA Nasal Decolonization 0831 (Given - Provider: Ghassan Rodriguez RN)2207 (Given - Provider: Landy Brink RN) 09 (Given - Provider: Arcadio Naylor RN)211 (Given - Provider: Landy Brink RN) pancrelipase (Uam-Msid-Kmbp) (Creon) 23235-691048 units per capsule 1 capsule 1 capsule, Oral, 3 times daily with meals, First dose on Meagan 05/30/24 at 1200, Administer whole with food and sufficient fluid; do not crush or chew. Contents may be sprinkled on soft acidic food (such as applesauce or bananas) if swallowed immediately without chewing. If ordered per G-tube, thoroughly mix capsule contents into acidic food (applesauce or bananas). Stir gently; do not crush spheres. Within 15 minutes of mixing, give via a 35 mL slip-tip syringe into a 16F or larger diameter tube, then flush with ~10 mL of water. 0829 (Given - Provider: Ghassan Rodriguez RN)1228 (Given - Provider: Ghassan Rodriguez RN)1704 (Given - Provider: Ghassan Rodriguez RN) 0906 (Given - Provider: Arcadio Naylor RN)1236 (Given - Provider: Arcadio Naylor RN)1718 (Given - Provider: Arcadio Naylor RN) 0937 (Given - Provider: Tish Diaz RN)1235 (Given - Provider: Tish Diaz RN)1700 (Canceled Entry - Provider: Automatic Discharge Provider - Comment: Automatically canceled at discontinue of medication order) pantoprazole (ProtoNix) EC tablet 40 mg 40 mg, Oral, Every morning, First dose on Meagan 05/30/24 at 1145, Do not crush, chew, or split. 0829 (Given - Provider: Ghassan Rodriguez RN) 09 (Given - Provider: Arcadio Naylor RN) 0937 (Given - Provider: Tish Diaz, RN) phosphorus (K Phos Neutral) tablet 1 tablet 1 tablet (250 mg), Oral, 2 times daily, First dose on 06/03/24 at 1415, For 4 doses, Each tablet contains 250 mg phosphorus, 298 mg sodium, 1.1 mEq potassium. 1543 (Given - Provider: Arcadio Naylor RN)2120 (Given - Provider: Landy Brink RN) 0937 (Given - Provider: Tish Diaz, MARLEY) polyethylene glycol (PEG) 3350 (Miralax) packet 17 g 17 g, Oral, Daily, First dose on Meagan 05/30/24 at 1145 0900 (Not Given - Provider: Ghassan Rodriguez RN - Reason: Patient/family refused) 1543 (Given - Provider: Arcadio Naylor RN - Comment: patient refused this morning and requesting now.) 0900 (Not Given - Provider: Tish Diaz RN - Reason: Patient/family refused) predniSONE (Deltasone) tablet 10 mg(Linked Group 1) 10 mg, Oral, Daily, First dose on 06/09/24 at 0900, For 2 doses predniSONE (Deltasone) tablet 20 mg(Linked Group 1) 20 mg, Oral, Daily, First dose on Mon06/07/24 at 0900, For 2 doses predniSONE (Deltasone) tablet 30 mg(Linked Group 1) 30 mg, Oral, Daily, First dose on Mon06/05/24 at 0900, For 2 doses predniSONE (Deltasone) tablet 40 mg (CANCELED) 40 mg, Oral, Daily, First dose on 06/02/24 at 0900 0829 (Given - Provider: Ghassan Rodriguez RN) 09 (Given - Provider: Arcadio Naylor RN) 0937 (Given - Provider: Tish Diaz, MARLEY) pregabalin (Lyrica) capsule 150 mg 150 mg, Oral, 2 times daily, First dose on Meagan 05/30/24 at 1145 0829 (Given - Provider: Ghassan Rodriguez RN)2207 (Given - Provider: Landy Brink RN) 906 (Given - Provider: Arcadio Naylor, RN)2119 (Given - Provider: Landy Brink RN) 09 (Given - Provider: Tish Diaz, RN) tamsulosin (Flomax) 24 hr capsule 0.4 mg 0.4 mg, Oral, Daily, First dose on Meagan 05/30/24 at 1145, Do not crush, chew, or split. 08 (Given - Provider: Ghassan Rodriguez RN) 906 (Given - Provider: Arcadio Naylor, MARLEY) 09 (Given - Provider: Tish Diaz, RN) PRN Medication Order 06/02/2024 06/03/2024 06/04/2024 acetaminophen (Tylenol) tablet 1,000 mg 1,000 mg, Oral, Every 8 hours PRN, mild pain (1-3), fever, Starting on Meagan 05/30/24 at 1136, Maximum dose of acetaminophen is 4000 mg from all sources in 24 hours. 2206 (Given - Provider: Landy Brink RN) 2119 (Given - Provider: Landy Brink RN) dextrose 5 % infusion 100 mL/hr, IntraVENous, PRN, Blood sugar less than 70mg/dL, Starting on Meagan 05/30/24 at 1142, Start infusion following administration of dextrose 50% or glucagon. dextrose 50 % solution 12.5 g 12.5 g, IntraVENous, PRN, low blood sugar, Blood glucose less than 70 mg/dL and patient NOT ALERT or NPO., Starting on Meagan 05/30/24 at 1142, If patient does not respond within 5 minutes, repeat dose x1. Start D5W at 100 mL/hour until ordering provider can be reached. Repeat blood glucose in 15 minutes. If blood glucose is less than 70 mg/dL, repeat treatment and recheck blood glucose in 15 minutes x2. If using Glucostabilizer, dose as instructed per system. glucagon (human recombinant) injection 1 mg 1 mg, IntraMUSCular, PRN, low blood sugar, Blood glucose less than 70 mg/dL and patient NOT ALERT or NPO and does not have IV access., Starting on Meagan 05/30/24 at 1142, After administration, attempt intravenous access and start D5W at 100 mL/hr. Repeat blood glucose in 15 minutes x2 and notify provider. glucose oral gel 15 g 15 g, Oral, As needed, low blood sugar, Starting on Meaagn 05/30/24 at 1142, If blood glucose less than 50 mg/dL and patient ALERT and NOT NPO, give 2 tubes glucose gel. If blood glucose less than 70 mg/dL and patient ALERT and NOT NPO, give 1 tube glucose gel. Repeat blood glucose in 15 minutes. If blood glucose is less than 70 mg/dL, repeat treatment and recheck blood glucose in 15 minutes x2 and notify provider. 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 Give IV if patient is unable to take orally. If inadequate response within 60 minutes, proceed to next-line agent or contact provider if no further options ordered. ondansetron ODT (Zofran-ODT) disintegrating tablet 4 mg(Linked Group 2) 4 mg, Oral, Every 8 hours PRN, nausea, vomiting, Starting on Meagan 05/30/24 at 1134, 1st Line. If inadequate response within 60 minutes, proceed to next-line agent or contact provider if no further options ordered. Patient should allow tablet to dissolve on tongue. Do not remove from blister pack until just before administering. senna-docusate sodium (Senokot-S) 8.6-50 MG tablet 1 tablet 1 tablet, Oral, Daily PRN, constipation, Starting on Meagan 05/30/24 at 1136, Cannot be crushed in PEG, Indications: Constipation Linked Groups Order Group 1: predniSONE (Deltasone) tablet 30 mgJump to med 30 mg, Oral, Daily, First dose on Mon06/05/24 at 0900, For 2 doses Followed by predniSONE (Deltasone) tablet 20 mgJump to med 20 mg, Oral, Daily, First dose on Mon06/07/24 at 0900, For 2 doses Followed by predniSONE (Deltasone) tablet 10 mgJump to med 10 mg, Oral, Daily, First dose on Mon06/09/24 at 0900, For 2 doses Group 2: ondansetron ODT (Zofran-ODT) disintegrating tablet 4 mgJump to med 4 mg, Oral, Every 8 hours PRN, nausea, vomiting, Starting on Meagan 05/30/24 at 1134, 1st Line. If inadequate response within 60 minutes, proceed to next-line agent or contact provider if no further options ordered. Patient should allow tablet to dissolve on tongue. Do not remove from blister pack until just before administering. Or ondansetron (Zofran) injection 4 mgJump to med 4 mg, IntraVENous, Every 6 hours PRN, nausea, vomiting, Starting on Meagan 05/30/24 at 1134, 1st Line. Give IV if patient is unable to take orally. If inadequate response within 60 minutes, proceed to next-line agent or contact provider if no further options ordered. Scheduled Medication Order 07/15/2024 07/16/2024 07/17/2024 acetaminophen (Tylenol) tablet 1,000 mg 1,000 mg, Oral, 3 times daily, First dose on 07/15/24 at 1510, Maximum dose of acetaminophen is 4000 mg from all sources in 24 hours., Indications: Pain 1519 (Given - Provider: Baljeet Duke RN)2131 (Given - Provider: Fariba Wilder RN) 0904 (Given - Provider: Isael Ash RN)1303 (Given - Provider: Isael Ash RN)2035 (Given - Provider: Fariba Wilder RN) 0846 (Given - Provider: Isael Ash RN)1521 (Given - Provider: Isael Ash RN)2100 (Canceled Entry - Provider: Automatic Discharge Provider - Comment: Automatically canceled at discontinue of medication order) aspirin chewable tablet 81 mg 81 mg, Oral, Daily, First dose on 07/15/24 at 1510 1520 (Given - Provider: Baljeet Duke RN) 0900 (Not Given - Provider: Isael Ash RN - Reason: NPO) 0847 (Given - Provider: Isael Ash RN) atorvastatin (Lipitor) tablet 80 mg 80 mg, Oral, Daily, First dose on Mon07/15/24 at 1510 1520 (Given - Provider: Baljeet Duke RN) 0903 (Given - Provider: Isael Ash RN) 0847 (Given - Provider: Isael Ash RN) carvedilol (Coreg) tablet 3.125 mg 3.125 mg, Oral, 2 times daily with meals, First dose on Mon07/15/24 at 1700, Hold if heart rate less than 60 or systolic blood pressure less than 90 1623 (Given - Provider: Baljeet Duke RN) 0903 (Given - Provider: Isael Ash RN)1756 (Given - Provider: Isael Ash RN) 0847 (Not Given - Provider: Isael Ash RN - Reason: Order parameters not met)1729 (Given - Provider: Isael Ash RN) ergocalciferol (Vitamin D2) capsule 1,250 mcg 1,250 mcg, Oral, Weekly, First dose on Mon07/16/24 at 0900 0903 (Given - Provider: Isael Ash RN) ezetimibe (Zetia) tablet 10 mg 10 mg, Oral, Nightly, First dose on Mon07/15/24 at 2100 2131 (Given - Provider: Fariba Wilder RN) 2035 (Given - Provider: Fariba Wilder RN) 2100 (Canceled Entry - Provider: Automatic Discharge Provider - Comment: Automatically canceled at discontinue of medication order) finasteride (Proscar) tablet 5 mg 5 mg, Oral, Daily, First dose on Mon07/15/24 at 1510, Women should not handle crushed or broken finasteride tablets when they are or may potentially be , due to potential risk to the fetus. Do not crush, chew, or split. 1520 (Given - Provider: Baljeet Duke RN) 0904 (Given - Provider: Isael Ash RN) 0847 (Given - Provider: Isael Ash RN) influenza vaccine A&B surf ant adjuvanted (Fluad) HIGH-DOSE injection 0.5 mL 0.5 mL, IntraMUSCular, Once, On Mon07/16/24 at 0900, For 1 dose Insulin Lispro (Humalog) injection 0-12 Units(Linked Group 1) 0-12 Units, SubCUTAneous, 3 times daily with meals, First dose on Mon07/15/24 at 1700, Medium Dose Correction Algorithm Glucose: Dose: LESS than 150 No Insulin 150-199 2 Units 200-249 4 Units 250-299 6 Units 300-349 8 Units 350-400 10 Units Above 400 12 Units 1631 (Given - Provider: Baljeet Duke RN) 0800 (Not Given - Provider: Isael Ash RN - Reason: NPO)1304 (Given - Provider: Isael Ash RN)1756 (Given - Provider: Isael Ash RN) 0846 (Given - Provider: Isael Ash, RN)1155 (Given - Provider: Isael Ash RN)1729 (Given - Provider: Isael Ash RN) Insulin Lispro (Humalog) injection 0-12 Units(Linked Group 1) 0-12 Units, SubCUTAneous, Nightly, First dose on Mon07/15/24 at 2100, If eating or bolus tube feeding: Medium Dose Correction Algorithm Glucose: Dose: LESS than 150 No Insulin 150-199 2 Units 200-249 4 Units 250-299 6 Units 300-349 8 Units 350-400 10 Units Above 400 12 Units 2133 (Given - Provider: Fariba Wilder RN) 2035 (Given - Provider: Fariba Wilder RN) 2100 (Canceled Entry - Provider: Automatic Discharge Provider - Comment: Automatically canceled at discontinue of medication order) mometasone-formoterol (Dulera 100) 100-5 MCG/ACT inhaler 2 puff 2 puff, Inhalation, 2 times daily, First dose on Mon07/15/24 at 2000, Rinse mouth with water after use to reduce aftertaste and incidence of candidiasis. Do not swallow. 213 (Given - Provider: Fariba Wilder RN) 09 (Given - Provider: Isael Ash RN)1999 (Given - Provider: Fariba Wilder RN) 0845 (Given - Provider: Isael Ash RN)1999 (Canceled Entry - Provider: Automatic Discharge Provider - Comment: Automatically canceled at discontinue of medication order) pancrelipase (Far-Lxlb-Qqde) (Elicia) 6000-54701 units per capsule 2 capsule 2 capsule, Oral, 3 times daily with meals, First dose on Mon07/15/24 at 1700, Administer whole with food and sufficient fluid; do not crush or chew. Contents may be sprinkled on soft acidic food (such as applesauce or bananas) if swallowed immediately without chewing. If ordered per G-tube, thoroughly mix capsule contents into acidic food (applesauce or bananas). Stir gently; do not crush spheres. Within 15 minutes of mixing, give via a 35 mL slip-tip syringe into a 16F or larger diameter tube, then flush with ~10 mL of water. 1622 (Given - Provider: Baljeet Duke RN) 0800 (Not Given - Provider: Isael Ash RN - Reason: NPO)1303 (Given - Provider: Isael Ash RN)1700 (Given - Provider: Isael Ash RN) 0845 (Given - Provider: Isael Ash RN)1155 (Given - Provider: Isael Ash RN)1700 (Given - Provider: Isael Ash RN) pantoprazole (ProtoNix) 40 mg in sodium chloride (PF) 0.9 % 10 mL injection (COMPLETED) 40 mg, IntraVENous, Administer over 2 Minutes, Once, On Mon07/15/24 at 1205, For 1 dose, Reconstitute with 10 ml NS. Vial expires 2 hrs after reconstitution. 1212 (Given - Provider: Baljeet Duke RN) pantoprazole (ProtoNix) EC tablet 40 mg 40 mg, Oral, Daily before breakfast, First dose on Mon07/17/24 at 0600, Do not crush, chew, or split. 0528 (Given - Provider: Fariba Wilder, MARLEY) pregabalin (Lyrica) capsule 150 mg 150 mg, Oral, 2 times daily, First dose on Mon07/15/24 at 2100 2131 (Given - Provider: Fariba Wilder, MARLEY) 0903 (Given - Provider: Isael Ash RN)2035 (Given - Provider: Fariba Wilder, MARLEY) 0846 (Given - Provider: Isael Ash RN)2100 (Canceled Entry - Provider: Automatic Discharge Provider - Comment: Automatically canceled at discontinue of medication order) tamsulosin (Flomax) 24 hr capsule 0.4 mg 0.4 mg, Oral, Daily, First dose on Mon07/15/24 at 1510, Do not crush, chew, or split. 1520 (Given - Provider: Baljeet Duke RN) 0904 (Given - Provider: Isael Ash RN) 0847 (Given - Provider: Isael Ash RN) tiotropium (Spiriva Respimat) 2.5 MCG/ACT inhaler 2 puff 2 puff, Inhalation, Daily, First dose on Mon07/16/24 at 1615, Instruct to hold breath for 10 seconds after each inhalation. Before first use, prime inhaler by actuating until aerosal cloud is seen, then actuating 3 more times. 1615 (Not Given - Provider: Isael Ash RN - Reason: Medication not available) 0844 (Given - Provider: Isael Ash RN) Continuous Medication Order 07/15/2024 07/16/2024 07/17/2024 pantoprazole (ProtoNix) 80 mg in sodium chloride 0.9 % 100 mL (0.8 mg/mL) infusion (CANCELED) 8 mg/hr (10 mL/hr), IntraVENous, Continuous, Starting on Mon07/15/24 at 1510 1610 (New Bag - Provider: Baljeet Duke RN)2355 (New Bag - Provider: Fariba Wilder, MARLEY) sodium chloride 0.9 % infusion (CANCELED) 100 mL/hr, IntraVENous, Continuous, Starting on Mon07/15/24 at 1510 1529 (New Bag - Provider: Baljeet Duke RN)2355 (New Bag - Provider: Fariba Wilder, MARLEY) 1121 (Continued by Anesthesia - Provider: Jimbo Avitia APRN - [employer]) PRN Medication Order 07/15/2024 07/16/2024 07/17/2024 acetaminophen (Tylenol) suppository 650 mg(Linked Group 2) 650 mg, Rectal, Every 6 hours PRN, fever, For temp greater than 100.4 F (38 C), Starting on Mon07/15/24 at 1509, Administer if oral route cannot be used. Maximum dose of acetaminophen is 4000 mg from all sources in 24 hours. acetaminophen (Tylenol) tablet 650 mg(Linked Group 2) 650 mg, Oral, Every 6 hours PRN, mild pain (1-3), fever, For temp greater than 100.4 F (38 C), Starting on Mon07/15/24 at 1509, Maximum dose of acetaminophen is 4000 mg from all sources in 24 hours. albuterol (2.5 MG/3ML) 0.083% nebulizer solution 2.5 mg 2.5 mg, Nebulization, 4 times daily PRN, wheezing, shortness of breath, Starting on Mon07/15/24 at 1509 albuterol 108 (90 Base) MCG/ACT inhaler 2 puff 2 puff, Inhalation, Every 6 hours PRN, shortness of breath, wheezing, Starting on Mon07/15/24 at 1509 dextrose 5 % infusion 100 mL/hr, IntraVENous, PRN, Blood sugar less than 70mg/dL, Starting on Mon07/15/24 at 1509, Start infusion following administration of dextrose 50% or glucagon. dextrose 50 % solution 12.5 g 12.5 g, IntraVENous, PRN, low blood sugar, Blood glucose less than 70 mg/dL and patient NOT ALERT or NPO., Starting on Mon07/15/24 at 1509, If patient does not respond within 5 minutes, repeat dose x1. Start D5W at 100 mL/hour until ordering provider can be reached. Repeat blood glucose in 15 minutes. If blood glucose is less than 70 mg/dL, repeat treatment and recheck blood glucose in 15 minutes x2. If using Glucostabilizer, dose as instructed per system. Diclofenac Sodium (Voltaren) 1 % gel 2 g 2 g, Topical, 2 times daily PRN, muscle/joint pain, Starting on Mon07/15/24 at 2203, Apply to Lower back . 0848 (Given - Provid er: Isael Ash RN) glucagon (human recombinant) injection 1 mg 1 mg, IntraMUSCular, PRN, low blood sugar, Blood glucose less than 70 mg/dL and patient NOT ALERT or NPO and does not have IV access., Starting on Mon07/15/24 at 1509, After administration, attempt intravenous access and start D5W at 100 mL/hr. Repeat blood glucose in 15 minutes x2 and notify provider. glucose oral gel 15 g 15 g, Oral, As needed, low blood sugar, Starting on Mon07/15/24 at 1509, If blood glucose less than 50 mg/dL and patient ALERT and NOT NPO, give 2 tubes glucose gel. If blood glucose less than 70 mg/dL and patient ALERT and NOT NPO, give 1 tube glucose gel. Repeat blood glucose in 15 minutes. If blood glucose is less than 70 mg/dL, repeat treatment and recheck blood glucose in 15 minutes x2 and notify provider. nitroglycerin (Nitrostat) SL tablet 0.4 mg 0.4 mg, SubLINGual, Every 5 min PRN, chest pain, Starting on Mon07/15/24 at 1509, May administer up to 3 doses per episode. ondansetron (Zofran) injection 4 mg(Linked Group 3) 4 mg, IntraVENous, Every 6 hours PRN, nausea, vomiting, Starting on Mon07/15/24 at 1509, 1st Line. Give IV if patient is unable to take orally. If inadequate response within 60 minutes, proceed to next-line agent or contact provider if no further options ordered. ondansetron ODT (Zofran-ODT) disintegrating tablet 4 mg(Linked Group 3) 4 mg, Oral, Every 8 hours PRN, nausea, vomiting, Starting on Mon07/15/24 at 1509, 1st Line. If inadequate response within 60 minutes, proceed to next-line agent or contact provider if no further options ordered. Patient should allow tablet to dissolve on tongue. Do not remove from blister pack until just before administering. polyethylene glycol (PEG) 3350 (Miralax) packet 17 g 17 g, Oral, Daily PRN, constipation, Starting on Mon07/15/24 at 1509, 1st line for treatment of constipation - give scheduled if no bowel movement in past 24 hours. Linked Groups Order Group 1: Insulin Lispro (Humalog) injection 0-12 UnitsJump to med 0-12 Units, SubCUTAneous, 3 times daily with meals, First dose on Mon07/15/24 at 1700, Medium Dose Correction Algorithm Glucose: Dose: LESS than 150 No Insulin 150-199 2 Units 200-249 4 Units 250-299 6 Units 300-349 8 Units 350-400 10 Units Above 400 12 Units And Insulin Lispro (Humalog) injection 0-12 UnitsJump to med 0-12 Units, SubCUTAneous, Nightly, First dose on Mon07/15/24 at 2100, If eating or bolus tube feeding: Medium Dose Correction Algorithm Glucose: Dose: LESS than 150 No Insulin 150-199 2 Units 200-249 4 Units 250-299 6 Units 300-349 8 Units 350- 400 10 Units Above 400 12 Units Group 2: acetaminophen (Tylenol) tablet 650 mgJump to med 650 mg, Oral, Every 6 hours PRN, mild pain (1-3), fever, For temp greater than 100.4 F (38 C), Starting on Mon07/15/24 at 1509, Maximum dose of acetaminophen is 4000 mg from all sources in 24 hours. Or acetaminophen (Tylenol) suppository 650 mgJump to med 650 mg, Rectal, Every 6 hours PRN, fever, For temp greater than 100.4 F (38 C), Starting on Mon07/15/24 at 1509, Administer if oral route cannot be used. Maximum dose of acetaminophen is 4000 mg from all sources in 24 hours. Group 3: ondansetron ODT (Zofran-ODT) disintegrating tablet 4 mgJump to med 4 mg, Oral, Every 8 hours PRN, nausea, vomiting, Starting on Mon07/15/24 at 1509, 1st Line. If inadequate response within 60 minutes, proceed to next-line agent or contact provider if no further options ordered. Patient should allow tablet to dissolve on tongue. Do not remove from blister pack until just before administering. Or ondansetron (Zofran) injection 4 mgJump to med 4 mg, IntraVENous, Every 6 hours PRN, nausea, vomiting, Starting on Mon07/15/24 at 1509, 1st Line. Give IV if patient is unable to take orally. If inadequate response within 60 minutes, proceed to next-line agent or contact provider if no further options ordered. Active Administered Medications - up to 3 most recent administrations Administered Medications (un recognized section and content) Medication Order MAR Action Action Date Dose Rate Site fluorescein-benoxinate 0.3-0.4 % 1 Drop (FLURESS) 1 Drop, BOTH EYES, DIRECTED, Starting on Mon06/06/23 at 1100, Until Mon06/06/23 at 2259, Administer for applanation tonometry. In the event of a Fluress shortage, administer 1 drop of Leticia-Fluor into both eyes as directed for applanation tonometry., [facility] MED ORDERS Given 06/06/2023 11:00 AM EST 1 Drop PHENYLephrine 2.5 % 1 Drop (AK-DILATE, LESTER-SYNEPHRINE) 1 Drop, BOTH EYES, DIRECTED, Starting on Mon06/06/23 at 1100, Until Mon06/06/23 at 2259, Administer for dilation PROTECT FROM LIGHT, [facility] MED ORDERS Given 06/06/2023 11:00 AM EST 1 Drop proparacaine 0.5 % 1 Drop (ALCAINE) 1 Drop, BOTH EYES, DIRECTED, Starting on Mon06/06/23 at 1100, Until Mon06/06/23 at 2259, Administer for pneumo tonometry, tonopen tonometry, or pachymetry. In the event of a proparacaine shortage, administer 1 drop of tetracaine 0.5% ophthalmic drops into both eyes as directed for pneumo tonometry, tonopen tonometry, or pachymetry, [facility] MED ORDERS Given 06/06/2023 11:00 AM EST 1 Drop tropicamide 1 % 1 Drop (MYDRIACYL) 1 Drop, BOTH EYES, DIRECTED, Starting on Mon06/06/23 at 1100, Until Mon06/06/23 at 2259, Administer for dilation, [facility] MED ORDERS Given 06/06/2023 11:00 AM EST 1 Drop FOR RECORDS PERTAINING TO PATIENTS WHO ARE OR HAVE BEEN ENROLLED IN A CHEMICAL DEPENDENCY/SUBSTANCEABUSE PROGRAM, SOME INFORMATION MAY BE OMITTED. This clinical summary was aggregated from multiple sources. Caution should be exercised in using it in the provision of clinical care. This summary normalizes information from multiple sources, and as a consequence, information in this document may materially change the coding, format and clinical context of patient data. In addition, data may be omitted in some cases. CLINICAL DECISIONS SHOULD BE BASED ON THE PRIMARY CLINICAL RECORDS. [facility]. provides no warranty or guarantee of the accuracy or completeness of information in this document.
[2024-09-23 07:40] LABS: Hematocrit 30.3 % (40-54); Hemoglobin 8.7 g/dL (13.0-16.5); Mean Corp Hgb Conc 28.7 g/dL (32-36); Mean Corpuscular Hgb 23.3 pg (27.0-32.0); Mean Corpuscular Volume 81.2 fL (80-94); Mean Platelet Vol. 9.7 fl (6.2-12.0); Platelet Count 263 K/mm3 (150-450); RBC Distribution Width CV 17.4 % (11.6-14.6); RBC Distribution Width SD 50.9 fl (35.1-43.9); Red Blood Count 3.73 M/mm3 (4.6-6.2); White Blood Count 7.9 K/mm3 (4.4-11.0)
[2024-09-23 07:54] LABS: Cholesterol 102 mg/dL (<=200); High Density Lipoprotein 46 mg/dL; Low Density Lipoprotein Calc. 43 mg/dL; Triglycerides 65 mg/dL; Very Low Density Lipoprotein 13 mg/dL (5-40); cholesterol:hdl ratio screen 2.21
[2024-09-23 08:14] LABS: Hemoglobin A1c 9.7 % (<=5.6)
[2024-09-23 09:02] LABS: AST(SGOT) 7 U/L (<=37); Alanine Aminotransfer ALT/SGPT < 5 U/L (<=46); Albumin, Serum 3.5 g/dL (3.4-4.8); Alkaline Phosphatase 107 U/L (40-129); Anion Gap 10 (5-15); BUN 16 mg/dL (4-19); Bilirubin, Direct 0.09 mg/dL (0.00-0.30); Calcium,Total 8.8 mg/dL (7.6-11.0); Carbon Dioxide 25.3 mmol/L (21.0-32.0); Chloride 107 mmol/L (98-108); Creatinine, Serum 0.96 mg/dL (0.70-1.20); EST Glomerular Filtration Rate 87 (>60); Globulin 2.7 g/dL (2.2-4.2); Glucose 192 mg/dL (70-99); Potassium 4.1 mmol/L (3.3-5.1); Protein, Total 6.2 g/dL (5.9-8.4); Sodium Level 142 mmol/L (133-145); Total Bilirubin 0.16 mg/dL (0.00-1.30)
== END ==
LOC: OLS.ACW200 05:00
PROVIDERS: Visit Provider Family Medicine
DX: S09.90XD Unspecified injury of head, subsequent encounter (principal); J96.02 Acute respiratory failure with hypercapnia; M51.362 Other intervertebral disc degeneration, lumbar region with discogenic back pain and lower extremity pain
CPT/HCPCS: 36415; 80048; 80061; 80076; 83036; 84443; 85027

== ENCOUNTER → 2024-09-25 | Outpatient (REF) | payer MEDICAID, SELFPAY ==
--- OUTSIDE RECORDS SUMMARY | 2024-09-25 03:41 | XMS RPT_ITS | CCD ---
Author Organization 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 Role Phone PROVIDER, UNKNOWN Unavailable Unavailable Spoljaric, Pepe Unavailable Unavailable Stacey Clemons Unavailable Unavailable Stacey Clemons Unavailable Unavailable PROVIDER, UNKNOWN Unavailable Unavailable Spoljaric, Pepe Unavailable Unavailable Stacey Clemons Unavailable Unavailable PROVIDER, UNKNOWN Unavailable Unavailable Spoljaric, Pepe Unavailable Unavailable PROVIDER, UNKNOWN Unavailable Unavailable Spoljaric, Pepe Unavailable Unavailable Soto Abhijit Unavailable Unavailable Isaiah, Melquiades Unavailable Unavailable PROVIDER, UNKNOWN Unavailable Unavailable Spoljaric, Pepe Unavailable Unavailable Willy Reeder Attending Unavailable PROVIDER, UNKNOWN Referring Unavailable Spoljaric, Pepe Primary Care Unavailable Pedro Rincon Attending Unavailable PROVIDER, UNKNOWN Referring Unavailable Spoljaric, Pepe Primary Care Unavailable Melquiades Gaming Attending Unavailable PROVIDER, UNKNOWN Referring Unavailable Spoallieric, Pepe Primary Care Unavailable Unavailable Primary Care Provider Unavailshantel Marion MD, Jose Martin Mart Primary Care Provider Chelle Troncoso Primary Care Provider [phone] Chelle Troncoso Primary Care Provider [phone] Chelle Troncoso Primary Care Provider CHELLE TRONCOSO Primary Care Unavailab MARIXA Mittal Attending Unavaila ble SELF Referring Unavailable Unavailable Primary Care Provider Unavailshantel Arriaza DMD, MD, Rony Unavailable [phone] KLEVER ACEVEDO Referring Unavailable PROVIDER, UNKNOWN Admitting Unavailable RONY ARRIAZA Attending Unavailable PROVIDER, UNKNOWN Admitting Unavailable RONY ARRIAZA Attending Unavailable Unavailable Primary Care Provider UnavailChelle Gomes MD Primary Care Provider Jose Martin Marion Primary Care Provider Pepe Marino MD Unavailable Chelle Mendez Attending Provider UnavailChelle [place] Referring Provider UnavailCHELLE Gomes Primary Care Unavailable HAYDEE WILLIS Admitting Unavailable [...] Attending Unavailable CHELLE TRONCOSO Primary Care Unavailable Chelle Mendez Attending Unavailable Thea GARCIA, Chelle Referring Unavailable Thea GARCIA, Chelle Attending Unavailable Thea GARCIA, Chelle Attending Unavailable Thea GARCIA, Chelle Attending Unavailable Thea GARCIA, Chelle Attending Unavailable Thea GARCIA, Chelle Attending Unavailable Thea GARCIA, Chelle Attending Unavailable Chelle Mendez Referring Unavailable Thea GARCIA, Chelle Attending Unavailable Thea GARCIA, Chelle Attending Unavailable Thea GARCIA, Chelle Attending Unavailable Thea GARCIA, Chelle Attending Unavailable Allergies Allergy Classification Reported Allergen(s) Allergy Type Date of Onset Reaction(s) Facility Penicillins (antibiotic) (1 source) Penicillins; Translations: [PENICILLINS] [facility] Tetracyclines (antibiotic) (1 source) Tetracycline; Translations: [TETRACYCLINE] Drug Allergy 09-05-19 [facility] (4 sources) Oxytetracycline; Translations: [OXYTETRACYCLINE] Drug Allergy 12-27-19 17 Unknown [facility] (20 sources) Penicillins; Translations: [PENICILLINS] Drug Allergy 10-24-19 15 Unknown, Other (See Comments) NICOLE Work Phone: (3 sources) Oxytetracycline Drug Allergy 02-05-20 15 Other (See Comments) [facility] (3 sources) Tetracyclines & Related Propensity to adverse reactions to drug 09-07-19 19 [facility] (20 sources) Tetracycline (class of antibiotic) Drug Intolerance 02-05-20 15 [facility] [employer] (3 sources) Tetracycline Drug Allergy 09-05-19 24 [facility] Medications Current Medications Medication Drug Class(es) Dates [...] as needed for watery/red eyes). 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 02/01/2023 Active Start: 12-20-2016 take 1 capsule by [facility] four times daily dicyclomine (BENTYL) [...] 05-02-2017 Incontinence Supply Disposable (DEPEND UNDERWEAR LARGE/XL) MISC uad 1 Package 5 05/02/2017 Active lisinopril [...] skin every 24 hours 0 Active nystatin 641355 unt/ml topical cream (20 sources) Polyene Antifungal Start: 11-09-19 23 nystatin (Mycostatin) cream 11/08/2022 Active pantoprazole 40 [...] 1 Drop ( AK-DILATE, LESTER-SYNEPHRINE) polymyxin b 83468 unt/ml / trimethoprim 1 mg/ml ophthalmic solution (3 sources) Dihydrofolate Reductase Inhibitor Antibacterial, Polymyxin-class Antibacterial Start: 08-03-2023 trimethoprim-polymyxin b (POLYTRIM) 58877-3.1 UNIT/ML-% ophthalmic solution 08/03/2023 Active microencapsulated potassium [...] time s daily PRN, wheezing, Starting on [place] 11/30/23 at 1545 Start: 07-28-2021 albuterol (2.5 [...] daily, First dose (after last modification) on [place] 06/02/24 at 2000 Start: 06-02-2024 End: 06-02-2024 3 mL, Nebulization, 4 times daily, First dose (after last modification) on [place] 06/02/24 at 0800 Start: 05-30-2024 End: 06-02-2024 3 mL, Nebulization, Every 4 hours, First dose on [facility] 05/30/24 at 1145 Start: 05-30-2024 End: 05-30-2024 3 mL, Nebulization, Once, On [facility] 05/30/24 at 0855, For 1 dose Start: 07-28-2021 take 3 mL by inhalat ion every four hours ipratropium-albuterol (DUONEB) 0.5 mg-3 mg(2.5 mg base)/3 mL nebu Inhale 3 mL as instructed every 4 hours while awake. 0 07/28/2021 Active Comment on above: Inhale 3 mL as instr ucted every 4 hours while awake. amylase 78203 unt / lipase 6000 unt / protease 43283 unt delayed release oral capsule (20 sources) [...] times daily with meals, First dose on [facility] 05/30/24 at 1200, Administer whole with [...] of water. Start: 04-24-2023 End: 04-24-2023 pancrelipase (Vhh-Rssd-Scfi) (Creon) 6000-51434 units per capsule 2 capsule take 04414-01223 [IU ] by mouth three times daily at mealtime pancrelipase, Pew-Mxpa-Gbcx, (Creon) 66820-11309 units capsule Take by mouth 3 times daily (with meals). Active olygvxy-lvgsug-a rotease (CREON) 07460 units capsule Take by mouth. Active aspirin [...] crush, chew, or split. Start: 04-23-2023 End: 01-07-2024 aspirin chewable tablet 324 mg Start: 08-26-2021 [...] (premix) docusate sodium 50 mg / sennosides, chcf 8.6 mg oral tablet (4 sources) Start: 05-30-2024 End: 06-04-2024 1 tablet, Oral, Daily PRN, constipation, Starting on [place] 05/30/24 at 1136, Cannot be crushed in PEG, Indications: Constipation Start: 07-28-2021 take 2 tablets by mo [facility] every twelve hours as needed senna-docusate (SENNA-S) 8.6-50 mg per tablet Take 2 tablets by mouth twice daily as needed. 0 07/28/2021 Active Comment on above: Take 2 tablets by mo ut twice daily as needed. dulaglutide (Trulicity) 4.5 [...] (2 times per day), First dose on [place] 05/30/24 at 1145, Indication of Use: Prophylaxis-DVT/PE Start: [...] once erg ocalciferol (Vitamin D-2) 1.25 MG (07495 UT) capsule Take 1.25 mg by mouth [...] Start: 12-20-2016 take 1 tablet by michael th once daily fenofibrate 160 MG tablet TAKE ONE TABLET BY MOUTH ONCE DAILY 90 tablet 1 12/20/2016 Active Comment on above: Take 1 capsule by mo uth daily with breakfast. finasteride 5 mg oral [...] spray, Each Nostril, Daily, First dose on Mon11/30/23 at 0900, Shake gently. Before first use, prime pump (press 6 times until fine spray appears). After use, clean tip and replace cap. take 1 spray(s) by inhalation on ce daily fluticasone (FLONASE) 50 mcg/act nasal inhaler 1 [place] daily. Active 60 actuat formoterol fumarate 0.005 [...] End: 05-30-2024 40 mg, IntraVENous, Once, On [facility] 05/30/24 at 1015, For 1 dose [...] injectable solution (20 sources) Insulin Analog Start: End: inject 16 [IU] by subcutaneous injection [...] times daily with meals, First dose on 04/24/23 at 0800 Start: 08-26-2021 Insulin Lispro (Humalog) [...] subcutaneously w MEALS. 0 07/28/2021 Active Start: 07-28-2021 insulin lispro (HUMALOG KWIKPEN) 100 unit/mL ADMINISTER [...] depression, over sedation, RR Start: 11-30-2023 End: 12-05-2023 0.4 mg, IntraVENous, Every 5 min PRN, [...] 10 mL IV syringe polyethylene glycol 3350 52932 mg powder for oral solution (8 sources) Osmotic Laxative Start: 07-15-2024 End: 07-17-2024 take 17 g by mouth every twenty-four hours as needed for constipation Start: 05-30-2024 End: 06-04-2024 17 g, Oral, Daily, First dos e on Mon05/30/24 at 1145 Start: 11-30-2023 End: [...] Start: 05-21-2020 take 1 capsule by mo [facility] every twenty-four hours in the morning tamsulosin [...] disease (20 sources) Atherosclerotic heart disease of [place] coronary artery with unstable angina pectoris; Translations: [Atherosclerotic heart disease of [place] coronary artery without angina pectoris] Onset: 8 [...] (primary) hypertension; Translations: [Essential (primary) hypertension] Onset: Chronic Gastrointestinal hemorrhage (10 sources) Hematemesis; Translations: [...] 01-09-2017 08-06-2017 Episodic Other aftercare (4 sources) [facility] (current) use of insulin; Translations: [[facility] (current) use of insulin] Onset: 11-03-2017 Episodic Other aftercare (2 sources) 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; Translations: [[facility] (current) use of aspirin] Onset: 12-17-2017 Episodic Other aftercare (2 sources) [facility] (current) use of non-steroidal anti-inflammatories (NSAID); Translations: [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 non-steroidal non-inflam (NSAID)] Onset: 12-17-2017 Episodic Other aftercare (20 sources) Long-term current use of antibiotic; Translations: [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] Onset: 10-20-2017 01-27-2022 Episodic Other and unspecified benign neoplasm (6 [...] Reference Range Facility 30on 07-17-2024 30 Normal [facility] 30 Normal [facility] CBC (HEMOGRAM)on 07-17-2024 Erythrocyte distribution width (RBC) [Ratio] 15.9 % High 11.5-15.0 [facility] Comment on above: Performed By: #### L [id number] ####Academic Intern: CLARE MERCERKRISTYN ([id number])[facility]OSPITALPrieto JARABERNADINE (SBHLAB)[address] Hematocrit (Bld) [Volume fraction] 30.8 % Low 40.0-52.0 [facility] Comment on above: Performed By: #### L [id number] ####Academic Intern: CLARE MERCERKRISTYN ([id number])[facility]ITALPrieto J[facility]OC[facility] HOSPITALAlysa (SBHLAB)[address] Hemoglobin (Bld) [Mass/Vol] 9.2 g/dL Low 13.0-18.0 [facility] Comment on above: Performed By: #### L [id number] ####Academic Intern: CLARE MERCERKRISTYN ([id number])[facility]ITALPrieto [facility] HOSPITALAlysa (SBAB)[address] MCH (RBC) [Entitic mass] 27.3 pg Normal 26.0-34.0 [facility] Comment on above: Performed By: #### L [id number] ####Academic Intern: CLARE MERCERKRISTYN ([id number])[facility]OSPITALPrieto [facility])[address] MCHC 29.9 % Low 30.5-36.0 [facility] Comment on above: Performed By: #### L [id number] ####Academic Intern: CLARE HUGGINS ([id number])[facility]ITALPrieto [facility]ITALAlysa (SBHLAB)[address] MCV (RBC) [Entitic vol] 91.4 fL Normal 77.0-99.0 [facility] Comment on above: Performed By: #### L [id number] ####Academic Intern: CLARE MERCERKRISTYN ([id number])[facility]ITALPrieto [facility] (SBAB)[address] Platelet mean volume (Bld) [Entitic vol] 9.8 fL Normal 9.0-12.7 [facility] Comment on above: Performed By: #### L [id number] ####Academic Intern: CLARE HUGGINS ([id number])[facility]ITALPrieto [facility]OSPITALN (SBHLAB)[address] Platelets (Bld) [#/Vol] 202 10*3/uL Normal 140-440 [facility] Comment on above: Performed By: #### L [id number] ####Academic Intern: CLARE HUGGINS ([id number])[facility] (SBHLAB)[address] RBC (Bld) [#/Vol] 3.37 10*6/uL Low 4.40-5.90 [facility] Comment on above: Performed By: #### L [id number] ####Academic Intern: CLARE HUGGINS ([id number])[facility] (SBHLAB)[address] WBC (Bld) [#/Vol] 6.3 10*3/uL Normal 3.6-10.7 [facility] Comment on above: Performed By: #### L [id number] ####Academic Intern: CLARE HUGGINS ([id number])[facility] (SBHLAB)[address] CBC panel Auto (Bld)Ordered By: Amador Saenz on 07-17-2024 Erythrocyte distribution width (RBC) [Ratio] 15.9 % High 11.5 - 15.0 % [facility] Hematocrit (Bld) [Volume fraction] 30.8 % Low 40.0 - 52.0 % [facility] Hemoglobin (Bld) [Mass/Vol] 9.2 g/dL Low 13.0 - 18.0 g/dL [facility] Interpretation and review of laboratory results Abnormal [facility] MCH (RBC) [Entitic mass] 27.3 pg 26. 0 - 34.0 pg [facility] MCHC (RBC) [Mass/Vol] 29.9 % Low 30.5 - 36.0 % [facility] MCV (RBC) [Entitic vol] 91.4 fL 77.0 - 99.0 fL [facility] Platelet mean volume (Bld) [Entitic vol] 9.8 fL 9.0 - 12.7 fL [facility] Platelets (Bld) [#/Vol] 202 10*3/uL 140 - 440 10*3/uL [facility] RBC (Bld) [#/Vol] 3.37 10*6/uL Low 4.40 - 5.9 0 10*6/uL [facility] WBC (Bld) [#/Vol] 6.3 10*3/uL 3.6 - 10.7 10*3/uL [facility] COMPREHENSIVE METABOLIC PANE Cricket 07-17-2024 Albumin [Mass/Vol] 2.6 g/dL Low 3.4-4.8 [facility] Comment on above: Performed By: #### L AB17 ####Academic Intern: CLARE HUGGINS ([id number])[facility] (SBHLAB)[address] ALP [Catalytic activity/Vol] 85 U/L Normal 40-150 [facility] Comment on above: Performed By: #### L AB17 ####Academic Intern: CLARE HUGGINS ([id number])[facility] ([facility])[address] ALT [Catalytic activity/Vol] U/L Normal <40 [facility] Comment on above: Performed By: #### L AB17 ####Academic Intern: CLARE HUGGINS ([id number])[facility] (SBHLAB)[address] Anion gap [Moles/Vol] 11 mmol/L Normal 3-13 [facility] Comment on above: Performed By: #### L AB17 ####Academic Intern: CLARE HUGGINS ([id number])[facility])[address] AST [Catalytic activity/Vol] 10 U/L Normal <34 [facility] Comment on above: Performed By: #### L AB17 ####Academic Intern: CLARE HUGGINS ([id number])[facility] (SBHLAB)[address] Bilirubin [Mass/Vol] 0.2 mg/dL Normal <1.2 [facility] Comment on above: Performed By: #### L AB17 ####Academic Intern: CLARE MERCERKRISTYN ([id number])[facility]ITALA [place] (SBHLAB)[address] Calcium [Mass/Vol] 8.7 mg/dL Low 8.8-10.0 [facility] Comment on above: Performed By: #### L AB17 ####Academic Intern: CLARE WINTERVERN ([id number])[facility]A [place] (SBHLAB)[address] Chloride [Moles/Vol] 111 mmol/L High 98-107 [facility] Comment on above: Performed By: #### L AB17 ####Academic Intern: CLARE MERCERKRISTYN ([id number])[facility]A [place] (SBHLAB)[address] CO2 [Moles/Vol] 20 mmol/L Low 23-31 [facility] Comment on above: Performed By: #### L AB17 ####Academic Intern: CLARE MERCERKRISTYN ([id number])[facility]A [place] (SBHLAB)[address] Creatinine [Mass/Vol] 1.09 mg/dL Normal 0.72-1.25 [facility] Comment on above: Performed By: #### L AB17 ####Academic Intern: CLARE MERCERKRISTYN ([id number])[facility]ITALA [place] (SBHLAB)[address] [place] [address] [place] GLOMERULAR FILTRATION RATE ML/MIN/1.73 SQ M.PREDICTED 74.4 mL/min/1.73m*2 Normal >60.0 [facility] Comment on above: Result Comment: Calc ulation based on the Chronic Kidney Disease Epidemiology Collaboration (CKD-EPI) equation refit without adjustment for race Performed By: #### L AB17 ####Academic Intern: CLARE MERCERKRISTYN ([id number])[facility] HOSPITALPrieto WAKEFIELDAlysa (SBHLAB)[address] Glucose [Mass/Vol] 228 mg/dL High 82-115 [facility] Comment on above: Performed By: #### L AB17 ####Academic Intern: CLARE JOSELUIS ([id number])[facility] HOSPITALPrieto [facility]N (SBHLAB)[address] Potassium [Moles/Vol] 4.3 mmol/L Normal 3.5-5.1 [facility] Comment on above: Result Comment: [facility] potassium values may be up to 0.5 mmol/L lower than serum values. Performed By: #### L AB17 ####Academic Intern: CLARE WINTERVERN ([id number])[facility]ITALPrieto [facility] (SBHLAB)[address] Protein [Mass/Vol] 5.5 g/dL Low 6.4-8.3 [facility] Comment on above: Performed By: #### L AB17 ####Academic Intern: CLARE WINTERVERN ([id number])[facility]ITALPrieto [place] (SBHLAB)[address] Sodium [Moles/Vol] 142 mmol/L Normal 136-145 [facility] Comment on above: Performed By: #### L AB17 ####Academic Intern: CLARE MERCERKRISTYN ([id number])[facility]ITALPrieto [facility]ATIONN (SBHLAB)[address] Urea nitrogen [Mass/Vol] 28 mg/dL High 9-23 [facility] Comment on above: Performed By: #### L AB17 ####Academic Intern: CLARE WINTERVERN ([id number])[facility] (SBHLAB)[address] Comprehensive metabolic 1998 panelon 07-17-2024 Albumin [Mass/Vol] 2.6 g/dL Low 3.4 - 4.8 g/dL [facility] ALP [Catalytic activity/Vol] 85 U/L 40 - 150 U/L [facility] ALT [Catalytic activity/Vol] U/L NINF - 40 U/L [facility] Anion gap [Moles/Vol] 11 mmol/L 3 - 13 mmol/L [facility] AST [Catalytic activity/Vol] 10 U/L [facility] - [facility] U/L [facility] Bilirubin [Mass/Vol] 0.2 mg/dL NINF - 1.2 mg/dL [facility] Calcium [Mass/Vol] 8.7 mg/dL Low 8.8 - 10. 0 mg/dL [facility] Chloride [Moles/Vol] 111 mmol/L High 98 - 10 7 mmol/L [facility] CO2 [Moles/Vol] 20 mmol/L Low 23 - 31 mmol/L [facility] Creatinine [Mass/Vol] 1.09 mg/dL 0.72 - 1.25 mg/dL [facility] GFR/1.73 sq M.predicted (S/P/Bld) [Vol rate/Area] 74.4 mL/min - PINF [facility] Comment on above: Calculation based on the Chronic Kidney Disease Epidemiology Collaboration (CKD-EPI) equation refit without adjustment for race Glucose [Mass/Vol] 228 mg/dL High 82 - 115 mg/dL [facility] Interpretation and review of laboratory results Abnormal [facility] Potassium [Moles/Vol] 4.3 mmol/L 3.5 - 5.1 mmol/L [facility] Comment on above: Plasma potassium adriana ues may be up to 0.5 mmol/L lower than serum values. Protein [Mass/Vol] 5.5 g/dL Low 6.4 - 8.3 g/dL [facility] Sodium [Moles/Vol] 142 mmol/L 136 - 145 mmol/L [facility] Urea nitrogen [Mass/Vol] 28 mg/dL High 9 - 23 mg/dL [facility] Laboratory - Chemistry and C hemistry - challengeon 07-17-2024 Glucose [Mass/Vol] 253 mg/dL High 70 - 100 mg/dL [facility] Glucose [Mass/Vol] 233 mg/dL High 70 - 100 mg/dL [facility] Glucose [Mass/Vol] 238 mg/dL High 70 - 100 mg/dL [facility] No Panel Informationon 07-17 Interpretation and review of laboratory results Abnormal [facility] Performed by: [facility], [address] [facility] [address] CLIA ID: [id number] [facility] Interpretation and review of laboratory results Abnormal [facility] Performed by: [facility] [place] [facility], [address] [facility] [address] CLIA ID: [id number] [facility] Interpretation and review of laboratory results Abnormal [facility] Performed by: [facility], [address] [facility] [address] CLIA ID: [id number] [facility] Nursing Noteon 07-17-2024 Nursing Note Normal [facility] Progress Noteon 07-17-2024 Progress Note Normal [facility] Progress Note Normal [facility] Progress Note Nutrition rescreen completed. Chart reviewed. 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 Normal [facility] [id number] 07-16-2024 [id number] Normal [facility] [id number] 07-16-2024 [id number] Normal [facility] 30on 07-16-2024 30 Normal [facility] Anesthesia Noteon 07-16-2024 Anesthesia Note Normal [facility] Anesthesia Note Normal [facility] CBC (HEMOGRAM)on 07-16-2024 Erythrocyte distribution width (RBC) [Ratio] 15.9 % High 11.5-15.0 [facility] Comment on above: Performed By: #### L [id number] ####Academic Intern: CLARE HUGGINS ([id number])[facility] (SBHLAB)[address] [place] [address] [place] Hematocrit (Bld) [Volume fraction] 31.0 % Low 40.0-52.0 [facility] Comment on above: Performed By: #### L [id number] ####Academic Intern: CLARE HUGGINS ([id number])[facility] (SBAB)[address] [place] [address] Hemoglobin (Bld) [Mass/Vol] 9.0 g/dL Low 13.0-18.0 [facility] Comment on above: Performed By: #### L [id number] ####Academic Intern: CLARE WINTERDaniloKRISTYN ([id number])[facility]ITALP[facility]eto JARABERNADINE (SBHLAB)[address] MCH (RBC) [Entitic mass] 26.8 pg Normal 26.0-34.0 [facility] Comment on above: Performed By: #### L [id number] ####Academic Intern: CLARE MERCERKRISTYN ([id number])[facility]ITALPrieto [facility]OC[facility] HOSPITALAlysa (SBHLAB)[address] MCHC 29.0 % Low 30.5-36.0 [facility] Comment on above: Performed By: #### L [id number] ####Academic Intern: CLARE JOSELUIS ([id number])[facility]ITALP[facility]eto [facility]ITALA[facility]sa (SBHLAB)[address] MCV (RBC) [Entitic vol] 92.3 fL Normal 77.0-99.0 [facility] Comment on above: Performed By: #### L [id number] ####Academic Intern: CLARE MERCERKRISTYN ([id number])[facility]ITALPrieto [facility] CORPORATIONAlysa (SBHLAB)[address] Platelet mean volume (Bld) [Entitic vol] 10.2 fL Normal 9.0-12.7 [facility] Comment on above: Performed By: #### L [id number] ####Academic Intern: CLARE HUGGINS ([id number])[facility] HOSPITALPrieto [facility]N (SBHLAB)[address] Platelets (Bld) [#/Vol] 194 10*3/uL Normal 140-440 [facility] Comment on above: Performed By: #### L [id number] ####Academic Intern: CLARE HUGGINS ([id number])[facility] ([facility]AB)[address] RBC (Bld) [#/Vol] 3.36 10*6/uL Low 4.40-5.90 [facility] Comment on above: Performed By: #### L [id number] ####Academic Intern: CLARE HUGGINS ([id number])[facility] (SBHLAB)[address] [place] [address] WBC (Bld) [#/Vol] 7.3 10*3/uL Normal 3.6-10.7 [facility] Comment on above: Performed By: #### L [id number] ####Academic Intern: CLARE HUGGINS ([id number])[facility] (SBHLAB)[address] [place] [address] CBC panel Auto (Bld)on 07-16 Erythrocyte distribution width (RBC) [Ratio] 15.9 % High 11.5 - 15.0 % [facility] Hematocrit (Bld) [Volume fraction] 31 % Low 40.0 - 52.0 % [facility] Hemoglobin (Bld) [Mass/Vol] 9 g/dL Low 13.0 - 18.0 g/dL [facility] Interpretation and review of laboratory results Abnormal [facility] MCH (RBC) [Entitic mass] 26.8 pg 26. 0 - 34.0 pg [facility] MCHC (RBC) [Mass/Vol] 29 % Low 30.5 - 36.0 % [facility] MCV (RBC) [Entitic vol] 92.3 fL 77.0 - 99.0 fL [facility] Platelet mean volume (Bld) [Entitic vol] 10.2 fL 9.0 - 12.7 fL [facility] Platelets (Bld) [#/Vol] 194 10*3/uL 140 - 440 10*3/uL [facility] RBC (Bld) [#/Vol] 3.36 10*6/uL Low 4.40 - 5.9 0 10*6/uL [facility] WBC (Bld) [#/Vol] 7.3 10*3/uL 3.6 - 10.7 10*3/uL [facility] COMPREHENSIVE METABOLIC PANE Cricket 07-16-2024 Albumin [Mass/Vol] 2.5 g/dL Low 3.4-4.8 [facility] Comment on above: Performed By: #### L [id number] ####Academic Intern: CLARE HUGGINS ([id number])[facility] (SBHLAB)[address] ALP [Catalytic activity/Vol] 81 U/L Normal 40-150 [facility] Comment on above: Performed By: #### L [id number] ####Academic Intern: CLARE HUGGINS ([id number])[facility] (SBHLAB)[address] [place] [address] [place] ALT [Catalytic activity/Vol] 9 U/L Normal <40 [facility] Comment on above: Performed By: #### L [id number] ####Academic Intern: CLARE HUGGINS ([id number])[facility]A [place] (SBHLAB)[address] Anion gap [Moles/Vol] 8 mmol/L Normal 3-13 [facility] Comment on above: Performed By: #### L [id number] ####Academic Intern: CLARE HUGGINS ([id number])[facility]A [place] (SBHLAB)[address] AST [Catalytic activity/Vol] 16 U/L Normal <34 [facility] Comment on above: Performed By: #### L [id number] ####Academic Intern: CLARE HUGGINS ([id number])[facility] (SBHLAB)[address] Bilirubin [Mass/Vol] 0.3 mg/dL Normal <1.2 [facility] Comment on above: Performed By: #### L [id number] ####Academic Intern: CLARE HUGGINS ([id number])[facility]ITALA [place] (SBHLAB)[address] Calcium [Mass/Vol] 8.5 mg/dL Low 8.8-10.0 [facility] Comment on above: Performed By: #### L [id number] ####Academic Intern: CLARE HUGGINS ([id number])[facility]A [place] (SBHLAB)[address] [place] [address] [place] Chloride [Moles/Vol] 111 mmol/L High 98-107 [facility] Comment on above: Performed By: #### L [id number] ####Academic Intern: CLARE HUGGINS ([id number])[facility] (SBHLAB)[address] CO2 [Moles/Vol] 20 mmol/L Low 23-31 [facility] Comment on above: Performed By: #### L [id number] ####Academic Intern: CLARE HUGGINS ([id number])[facility] (SBHLAB)[address] Creatinine [Mass/Vol] 1.17 mg/dL Normal 0.72-1.25 [facility] Comment on above: Performed By: #### L [id number] ####Academic Intern: CLARE HUGGINS ([id number])[facility])[address] [place] [address] [place] GLOMERULAR FILTRATION RATE ML/MIN/1.73 SQ M.PREDICTED 68.3 mL/min/1.73m*2 Normal >60.0 [facility] Comment on above: Result Comment: Calc ulation based on the Chronic Kidney Disease Epidemiology Collaboration (CKD-EPI) equation refit without adjustment for race Performed By: #### L [id number] ####Academic Intern: CLARE HUGGINS ([id number])[facility])[address] [place] [address] [place] Glucose [Mass/Vol] 186 mg/dL High 82-115 [facility] Comment on above: Performed By: #### L [id number] ####Academic Intern: CLARE HUGGINS ([id number])[facility] (HLAB)[address] [place] [address] [place] Potassium [Moles/Vol] 4.3 mmol/L Normal 3.5-5.1 [facility] Comment on above: Result Comment: [facility] potassium values may be up to 0.5 mmol/L lower than serum values. Performed By: #### L [id number] ####Academic Intern: CLARE HUGGINS ([id number])[facility] (SBHLAB)[address] Protein [Mass/Vol] 5.5 g/dL Low 6.4-8.3 [facility] Comment on above: Performed By: #### L [id number] ####Academic Intern: CLARE HUGGINS ([id number])[facility] HOSPITALPrieto [place] (SBHLAB)[address] Sodium [Moles/Vol] 139 mmol/L Normal 136-145 [facility] Comment on above: Performed By: #### L [id number] ####Academic Intern: CLARE HUGGINS ([id number])[facility]ITALPrieto [place] (SBHLAB)[address] Urea nitrogen [Mass/Vol] 32 mg/dL High 9-23 [facility] Comment on above: Performed By: #### L [id number] ####Academic Intern: CLARE HUGGINS ([id number])[facility] HOSPITALPrieto [place] (SBHLAB)[address] Comprehensive metabolic 1998 panelon 07-16-2024 Albumin [Mass/Vol] 2.5 g/dL Low 3.4 - 4.8 g/dL [facility] ALP [Catalytic activity/Vol] 81 U/L 40 - 150 U/L [facility] ALT [Catalytic activity/Vol] 9 U/L NINF - 40 U/L [facility] Anion gap [Moles/Vol] 8 mmol/L 3 - 13 mmol/L [facility] AST [Catalytic activity/Vol] 16 U/L NINF - 34 U/L [facility] Bilirubin [Mass/Vol] 0.3 mg/dL NINF - 1.2 mg/dL [facility] Calcium [Mass/Vol] 8.5 mg/dL Low 8.8 - 10. 0 mg/dL [facility] Chloride [Moles/Vol] 111 mmol/L High 98 - 10 7 mmol/L [facility] CO2 [Moles/Vol] 20 mmol/L Low 23 - 31 mmol/L [facility] Creatinine [Mass/Vol] 1.17 mg/dL 0.72 - 1.25 mg/dL [facility] GFR/1.73 sq M.predicted (S/P/Bld) [Vol rate/Area] 68.3 mL/min - PINF [facility] Comment on above: Calculation based on the Chronic Kidney Disease Epidemiology Collaboration (CKD-EPI) equation refit without adjustment for race Glucose [Mass/Vol] 186 mg/dL High 82 - 115 mg/dL [facility] Interpretation and review of laboratory results Abnormal [facility] Potassium [Moles/Vol] 4.3 mmol/L 3.5 - 5.1 mmol/L [facility] Comment on above: Plasma potassium adriana ues may be up to 0.5 mmol/L lower than serum values. Protein [Mass/Vol] 5.5 g/dL Low 6.4 - 8.3 g/dL [facility] Sodium [Moles/Vol] 139 mmol/L 136 - 145 mmol/L [facility] Urea nitrogen [Mass/Vol] 32 mg/dL High 9 - 23 mg/dL [facility] Consulton 07-16-2024 Consult Normal [facility] Consult Normal [facility] HEMOGLOBIN AND HEMATOCRIT, B LOODon 07-16-2024 Hematocrit (Bld) [Volume fraction] 28.9 % Low 40.0-52.0 [facility] Comment on above: Performed By: #### L [id number] ####Academic Intern: CLARE HUGGINS ([id number])[facility] ([facility])[address] [place] [address] Hemoglobin (Bld) [Mass/Vol] 8.5 g/dL Low 13.0-18.0 [facility] Comment on above: Performed By: #### L [id number] ####Academic Intern: CLARE HUGGINS ([id number])[facility] (SBHLAB)[address] Hematocrit (Bld) [Volume fraction] 30.2 % Low 40.0-52.0 [facility] Comment on above: Performed By: #### L [id number] ####Academic Intern: CLARE HUGGINS ([id number])[facility] (SBHLAB)[address] [place] [address] [place] Hemoglobin (Bld) [Mass/Vol] 9.1 g/dL Low 13.0-18.0 [facility] Comment on above: Performed By: #### L [id number] ####Academic Intern: CLARE HUGGINS ([id number])[facility] HOSPITALPrieto [place] (SBHLAB)[address] [place] [address] [place] Hemoglobin (Bld) [Mass/Vol]o n 07-16-2024 Hematocrit (Bld) [Volume fraction] 28.9 % Low 40.0 - 52.0 % [facility] Interpretation and review of laboratory results Abnormal [facility] Hemoglobin (Bld) [Mass/Vol]O rdered By: Verónica Kitchen on 07-16-2024 Hematocrit (Bld) [Volume fraction] 30.2 % Low 40.0 - 52.0 % [facility] Interpretation and review of laboratory results Abnormal [facility] IRON AND TIBCon 07-16-2024 IRON BINDING CAPACITY 265 ug/dL Normal 250-450 [facility] Comment on above: Performed By: #### L [id number] ####Academic Intern: CLARE HUGGINS ([id number])[facility] HOSPITALPrieto [place]ER[place] (SBHLAB)[address] IRON SATURATION 10.6 % Low 20.0-50.0 [facility] Comment on above: Performed By: #### L [id number] ####Academic Intern: CLARE HUGGINS ([id number])[facility] GERALDBERNADINE (SBHLAB)[address] IRON, TOTAL 28 ug/dL Low 65-175 [facility] Comment on above: Performed By: #### L [id number] ####Academic Intern: CLARE HUGGINS ([id number])[facility] BARBMYNORN (SBHLAB)[address] [place] [address] [place] Iron and Iron binding capaci ty panelon 07-16-2024 Interpretation and review of laboratory results Abnormal [facility] Iron [Mass/Vol] 28 ug/dL Low 65 - 175 ug/dL [facility] Iron binding capacity [Mass/Vol] 265 ug/dL 250 - 450 ug/dL [facility] Iron saturation [Mass fraction] 10.6 % Low 20.0 - 50.0 % [facility] Laboratory - Chemistry and C hemistry - challengeon 07-16-2024 Glucose [Mass/Vol] 268 mg/dL High 70 - 100 mg/dL [facility] Glucose [Mass/Vol] 296 mg/dL High 70 - 100 mg/dL [facility] Glucose [Mass/Vol] 219 mg/dL High 70 - 100 mg/dL [facility] Glucose [Mass/Vol] 194 mg/dL High 70 - 100 mg/dL [facility] Laboratory - Coagulationon 0 07-16-2024 aPTT Coag (PPP) [Time] 30.2 s 20.0 - 30.5 s [facility] INR Coag (PPP) [Relative time] 1 {INR} 0.9 - 1.1 [facility] Comment on above: Recommended Anticoag ulant Therapy: [...] 11.5 s 9.0 - 1 2.0 s [facility] Laboratory - Hematology and Cell countson 07-16-2024 Hemoglobin (Bld) [Mass/Vol] 8.5 g/dL Low 13.0 - 18.0 g/dL [facility] Laboratory - Hematology and Cell countsOrdered By: Verónica Kitchen on 07-16-2024 Hemoglobin (Bld) [Mass/Vol] 9.1 g/dL Low 13.0 - 18.0 g/dL [facility] No Panel Informationon 07-16 Interpretation and review of laboratory results Abnormal [facility] Performed by: [facility], [address] [facility] [address] CLIA ID: [id number] [facility] Interpretation and review of laboratory results Abnormal [facility] Performed by: [facility], [address] [facility] [address] CLIA ID: [id number] [facility] Interpretation and review of laboratory results Abnormal [facility] Performed by: [facility] [place] [facility], [address] [facility] [address] CLIA ID: [id number] [facility] Interpretation and review of laboratory results Abnormal [facility] Performed by: [facility], [address] [facility] [address] CLIA ID: [id number] [facility] Interpretation and review of laboratory results Normal [facility] Op Noteon 07-16-2024 Op Note Normal [facility] PROTIME AND APTTon aPTT Coag (Bld) [Time] 30.2 s Normal 20.0-30.5 [facility] Comment on above: Performed By: #### L [id number] ####Academic Intern: CLARE HUGGINS ([id number])[facility], INCBERNADINE ([facility])[address] [place] [address] INR Coag (PPP) [Relative time] 1.0 {INR} Normal 0.9-1.1 [facility] Comment on above: Result Comment: Lux [...] prevent Myocardial Infarction Performed By: #### L [id number] ####Academic Intern: CLARE HUGGINS ([id number])[facility] HOSPITALPrieto [facility]OSPITALBERNADINE (SBHLAB)[address] [place] [address] PT Coag (PPP) [Time] 11.5 s Normal 9.0-12.0 [facility] Comment on above: Performed By: #### L [id number] ####Academic Intern: CLARE HUGGINS ([id number])[facility], INCMYNOR (SBAB)[address] Progress Noteon 07-16-2024 Progress Note [facility] Progress Note Normal [facility] Progress Note Normal [facility] [id number] 07-15-2024 [id number] Per pedro, zachary rosales is care home and bedhold at [facility] and can return when medically stable. . Normal [facility] BLOOD GAS ARTERIALon 025 AMOUNT OF OXYGEN 6 Normal [facility] Comment on above: Performed By: #### L [id number] ####Academic Intern: CLARE HUGGINS ([id number])[facility] (SBAB)[address] [place] [address] Base excess Calc (Bld) [Moles/Vol] -3.3000 mmol/L Low -3.0-3.0 [facility] Comment on above: Performed By: #### L [id number] ####Academic Intern: CLARE HUGGINS ([id number])[facility] (SBAB)[address] [place] [address] CO2 [Moles/Vol] 24.4 mmol/L Normal 22.0-28.0 [facility] Comment on above: Performed By: #### L [id number] ####Academic Intern: CLARE HUGGINS ([id number])[facility] (SBAB)[address] [place] [address] HCO3 (Bld) [Moles/Vol] 22.9 mmol/L Normal 21.0-27.0 [facility] Comment on above: Performed By: #### L AB76 ####Academic Intern: CLARE HUGGINS ([id number])[facility] ([facility])[address] Hemoglobin (Bld) [Mass/Vol] 11.4 g/dL Low Screen only [facility] Comment on above: Performed By: #### L AB76 ####Academic Intern: CLARE [id number])[facility]ITALPrieto [place] (SBHLAB)[address] OXYGEN SATURATION (%) IN ARTERIAL BLOOD 92.2 % Low 97.0-99.0 [facility] Comment on above: Performed By: #### L AB76 ####Academic Intern: CLARE HUGGINS ([id number])[facility] (SBHLAB)[address] PCO2 ARTERIAL 46.3 mm Hg Normal 35.0-48.0 [facility] Comment on above: Performed By: #### L [id number] ####Academic Intern: CLARE HUGGINS ([id number])[facility] (SBAB)[address] PH ARTERIAL 7.313 Low 7.350-7.450 [facility] Comment on above: Performed By: #### L [id number] ####Academic Intern: CLARE HUGGINS ([id number])[facility])[address] PO2 ARTERIAL 70.1 mm Hg Low 83.0-108.0 [facility] Comment on above: Performed By: #### L [id number] ####Academic Intern: CLARE HUGGINS ([id number])[facility])[address] SOURCE OF OXYGEN Nasal Cannula (LPM) Normal [facility] Comment on above: Performed By: #### L [id number] ####Academic Intern: CLARE HUGGINS ([id number])[facility] (SBHLAB)[address] BLOOD TYPE AND SCREEN GELon 07-15-2024 ABO GROUPING A Normal [facility] Comment on above: Performed By: #### L [id number] ####Academic Intern: CLARE HUGGINS ([id number])[facility] BLOOD BANK (SB)[address] [place] [address] [place] RH TYPE IN BLOOD Positive Normal [facility] Comment on above: Performed By: #### L [id number] ####Academic Intern: CLARE HUGGINS ([id number])[facility] ([facility])[address] Blood type and Crossmatch corby joe (Bld)on 07-15-2024 ABO group Nom (Bld) A [employer] Blood group antibody screen GEL Ql Negative [facility] [employer] D Ag Ql (RBC) Positive [facility]alt h [employer] CBC W Auto Differential pane l (Bld)Ordered By: Arcadio Shelton on 07-15-2024 Basophils (Bld) [#/Vol] 0 10*3/uL 0.0 - 0.2 10*3/uL [employer] Basophils/100 WBC (Bld) 0.2 % 0.0 - 2.0 % [employer] Eosinophils (Bld) [#/Vol] 0 10*3/uL 0.0 - 0.5 10*3/uL [employer] Eosinophils/100 WBC (Bld) 0.3 % 0.0 - 6.0 % [employer] Erythrocyte distribution width (RBC) [Ratio] 15.9 % High 11.5 - 15.0 % [employer] Hematocrit (Bld) [Volume fraction] 33.6 % Low 40.0 - 52.0 % [employer] Hemoglobin (Bld) [Mass/Vol] 10 g/dL Low 13.0 - 18.0 g/dL [employer] Immature granulocytes (Bld) [#/Vol] 0.1 10*3/uL High NINF - 0.1 10*3/uL [employer] Immature granulocytes/100 WBC (Bld) 0.4 % 0.0 - 2.0 % [employer] Interpretation and review of laboratory results Abnormal [employer] Lymphocytes (Bld) [#/Vol] 1.1 10*3/uL 1.0 - 4.3 10*3/uL [employer] Lymphocytes/100 WBC (Bld) 8.4 % Low 15.0 - 45.0 % [employer] MCH (RBC) [Entitic mass] 27 pg 26. 0 - 34.0 pg [employer] MCHC (RBC) [Mass/Vol] 29.8 % Low 30.5 - 36.0 % [facility] MCV (RBC) [Entitic vol] 90.6 fL 77.0 - 99.0 fL [facility] Monocytes (Bld) [#/Vol] 1.2 10*3/uL High 0.0 - 0.9 10*3/uL [facility] Monocytes/100 WBC (Bld) 9.6 % 5.0 - 13.0 % [facility] Neutrophils (Bld) [#/Vol] 10.4 10*3/uL High 1.8 - 7.5 10*3/uL [facility] Neutrophils/100 WBC (Bld) 81.1 % 38.0 - 82.0 % [facility] Nucleated RBC/100 WBC (Bld) [Ratio] 0 % [facility] Platelet mean volume (Bld) [Entitic vol] 10.6 fL 9.0 - 12.7 fL [facility] Platelets (Bld) [#/Vol] 221 10*3/uL 140 - 440 10*3/uL [facility] RBC (Bld) [#/Vol] 3.71 10*6/uL Low 4.40 - 5.9 0 10*6/uL [facility] WBC (Bld) [#/Vol] 12.8 10*3/uL High 3.6 - 10.7 10*3/uL [facility] CBC WITH AUTO DIFFERENTIALon 07-15-2024 Basophils (Bld) [#/Vol] 0.0 10*3/uL Normal 0.0-0.2 [facility] Comment on above: Performed By: #### L [id number] ####Academic Intern: CLARE HUGGINS ([id number])[facility] (SBAB)[address] [place] [address] Basophils/100 WBC (Bld) 0.2 % Normal 0.0-2.0 [facility] Comment on above: Performed By: #### L [id number] ####Academic Intern: CLARE HUGGINS ([id number])[facility] (SBHLAB)[address] Eosinophils (Bld) [#/Vol] 0.0 10*3/uL Normal 0.0-0.5 [facility] Comment on above: Performed By: #### L [id number] ####Academic Intern: CLARE WINTERDaniloKRISTYN ([id number])[facility])[address] [place] [address] Eosinophils/100 WBC (Bld) 0.3 % Normal 0.0-6.0 [facility] Comment on above: Performed By: #### L [id number] ####Academic Intern: CLARE JOSELUIS ([id number])[facility])[address] Erythrocyte distribution width (RBC) [Ratio] 15.9 % High 11.5-15.0 [facility] Comment on above: Performed By: #### L [id number] ####Academic Intern: CLARE HUGGINS ([id number])[facility] ([facility])[address] [place] [address] Hematocrit (Bld) [Volume fraction] 33.6 % Low 40.0-52.0 [facility] Comment on above: Performed By: #### L [id number] ####Academic Intern: CLARE JOSELUIS ([id number])[facility] ([facility])[address] [place] [address] Hemoglobin (Bld) [Mass/Vol] 10.0 g/dL Low 13.0-18.0 [facility] Comment on above: Performed By: #### L [id number] ####Academic Intern: CLARE MERCERKRISTYN ([id number])[facility])[address] [place] [address] IMMATURE GRANS % 0.4 % Normal 0.0-2.0 [facility] Comment on above: Performed By: #### L [id number] ####Academic Intern: CLARE MERCERKRISTYN ([id number])[facility] ([facility])[address] [place] [address] IMMATURE GRANS ABSOLUTE 0.1 10*3/uL High <0.1 [facility] Comment on above: Performed By: #### L [id number] ####Academic Intern: CLARE HUGGINS ([id number])[facility]ITALPrieto [place] (SBHLAB)[address] Lymphocytes (Bld) [#/Vol] 1.1 10*3/uL Normal 1.0-4.3 [facility] Comment on above: Performed By: #### L [id number] ####Academic Intern: CLARE HUGGINS ([id number])[facility]OS[facility]ITALPrieto JAARSOCORRO GENERAL HOSPITALN (SBHLAB)[address] Lymphocytes/100 WBC (Bld) 8.4 % Low 15.0-45.0 [facility] Comment on above: Performed By: #### L [id number] ####Academic Intern: CLARE HUGGINS ([id number])[facility]ITALPrieto [place] (SBHLAB)[address] [place] [address] MCH (RBC) [Entitic mass] 27.0 pg Normal 26.0-34.0 [facility] Comment on above: Performed By: #### L [id number] ####Academic Intern: CLARE HUGGINS ([id number])[facility] HOSPITALPrieto [facility]PORATIONN (SBHLAB)[address] MCHC 29.8 % Low 30.5-36.0 [facility] Comment on above: Performed By: #### L [id number] ####Academic Intern: CLARE JOSELUIS ([id number])[facility] H[facility]ITALPrieto BARBSOCORRO GENERAL HOSPITALN (SBHLAB)[address] MCV (RBC) [Entitic vol] 90.6 fL Normal 77.0-99.0 [facility] Comment on above: Performed By: #### L [id number] ####Academic Intern: CLARE HUGGINS ([id number])[facility]ITALPrieto JARASOCORRO GENERAL HOSPITALN (SBHLAB)[address] Monocytes (Bld) [#/Vol] 1.2 10*3/uL High 0.0-0.9 [facility] Comment on above: Performed By: #### L [id number] ####Academic Intern: CLARE MERCERKRISTYN ([id number])[facility] (SBHLAB)[address] Monocytes/100 WBC (Bld) 9.6 % Normal 5.0-13.0 [facility] Comment on above: Performed By: #### L [id number] ####Academic Intern: CLARE HUGGINS ([id number])[facility]A [place] (SBHLAB)[address] NEUTROPHILS ABSOLUTE 10.4 10*3/uL High 1.8-7.5 [facility] Comment on above: Performed By: #### L [id number] ####Academic Intern: CLARE BELLOCER ([id number])[facility] [place] (SBHLAB)[address] Neutrophils/100 WBC (Bld) 81.1 % Normal 38.0-82.0 [facility] Comment on above: Performed By: #### L [id number] ####Academic Intern: CLARE HUGGINS ([id number])[facility] [place] (SBHLAB)[address] NRBC 0.0 /100 WBCs Normal 0.0-2.0 [facility] Comment on above: Performed By: #### L [id number] ####Academic Intern: CLARE HUGGINS ([id number])[facility] [place] (SBHLAB)[address] Platelet mean volume (Bld) [Entitic vol] 10.6 fL Normal 9.0-12.7 [facility] Comment on above: Performed By: #### L [id number] ####Academic Intern: CLARE HUGGINS ([id number])[facility] [place] (SBHLAB)[address] Platelets (Bld) [#/Vol] 221 10*3/uL Normal 140-440 [facility] Comment on above: Performed By: #### L [id number] ####Academic Intern: CLARE HUGGINS ([id number])[facility] [place] (SBHLAB)[address] RBC (Bld) [#/Vol] 3.71 10*6/uL Low 4.40-5.90 [facility] Comment on above: Performed By: #### L [id number] ####Academic Intern: CLARE HUGGINS ([id number])[facility] [place] (SBHLAB)[address] WBC (Bld) [#/Vol] 12.8 10*3/uL High 3.6-10.7 [facility] Comment on above: Performed By: #### L [id number] ####Academic Intern: CLARE MERCERKRISTYN ([id number])[facility] (SBHLAB)[address] [place] [address] COMPREHENSIVE METABOLIC PANE Cricket 07-15-2024 Albumin [Mass/Vol] 2.8 g/dL Low 3.4-4.8 [facility] Comment on above: Performed By: #### Joyce GIRALDO, LAB17, LAB99 ####Academic Intern: CLARE HUGGINS ([id number])[facility] [place] (SBHLAB)[address] ALP [Catalytic activity/Vol] 94 U/L Normal 40-150 [facility] Comment on above: Performed By: #### Joyce GIRALDO, LAB17, LAB99 ####Academic Intern: CLARE HUGGINS ([id number])[facility] [place] (SBHLAB)[address] ALT [Catalytic activity/Vol] 13 U/L Normal <40 [facility] Comment on above: Performed By: #### Joyce ABKeegan, LAB17, LAB99 ####Academic Intern: CLARE HUGGINS ([id number])[facility]ITALN (SBHLAB)[address] [place] [address] Anion gap [Moles/Vol] 11 mmol/L Normal 3-13 [facility] Comment on above: Performed By: #### Joyce GIRALDO, LAB17, LAB99 ####Academic Intern: CLARE HUGGINS ([id number])[facility] [place] (SBHLAB)[address] AST [Catalytic activity/Vol] 22 U/L Normal <34 [facility] Comment on above: Result Comment: TCPo tential interference from hemolysis Performed By: #### Joyce GIRALDO, LAB17, LAB99 ####Academic Intern: CLARE HUGGINS ([id number])[facility] [place] (SBHLAB)[address] Bilirubin [Mass/Vol] 0.4 mg/dL Normal <1.2 [facility] Comment on above: Performed By: #### Joyce GIRALDO, LAB17, LAB99 ####Academic Intern: CLARE HUGGINS ([id number])[facility] ([facility])[address] Calcium [Mass/Vol] 8.4 mg/dL Low 8.8-10.0 [facility] Comment on above: Performed By: #### Joyce GIRALDO, LAB17, LAB99 ####Academic Intern: CLARE HUGGINS ([id number])[facility] [place] (SBHLAB)[address] Chloride [Moles/Vol] 107 mmol/L Normal 98-107 [facility] Comment on above: Performed By: #### Joyce GIRALDO, LAB17, LAB99 ####Academic Intern: CLARE HUGGINS ([id number])[facility] [place] (SBHLAB)[address] [place] [address] [place] CO2 [Moles/Vol] 18 mmol/L Low 23-31 [facility] Comment on above: Performed By: #### Joyce GIRALDO, LAB17, LAB99 ####Academic Intern: CLARE HUGGINS ([id number])[facility] [place] (SBHLAB)[address] [place] [address] [place] Creatinine [Mass/Vol] 1.49 mg/dL High 0.72-1.25 [facility] Comment on above: Performed By: #### Joyce GIRALDO, LAB17, LAB99 ####Academic Intern: CLARE HUGGINS ([id number])[facility] ([facility])[address] [place] [address] [place] GLOMERULAR FILTRATION RATE ML/MIN/1.73 SQ M.PREDICTED 51.1 mL/min/1.73m*2 Low >60.0 [facility] Comment on above: Result Comment: Calc ulation based on the Chronic Kidney Disease Epidemiology Collaboration (CKD-EPI) equation refit without adjustment for race Performed By: #### Joyce GIRALDO, LAB17, LAB99 ####Academic Intern: CLARE HUGGINS ([id number])[facility] ([facility])[address] Glucose [Mass/Vol] 305 mg/dL High 82-115 [facility] Comment on above: Performed By: #### Joyce GIRALDO, LAB17, LAB99 ####Academic Intern: CLARE HUGGINS ([id number])[facility] ([facility])[address] [place] [address] [place] Potassium [Moles/Vol] 5.1 mmol/L Normal 3.5-5.1 [facility] Comment on above: Result Comment: [facility] potassium values may be up to 0.5 mmol/L lower than serum values. Performed By: #### Joyce GIRALDO, LAB17, LAB99 ####Academic Intern: CLARE HUGGINS ([id number])[facility] [place] [address] [place] Protein [Mass/Vol] 6.0 g/dL Low 6.4-8.3 [facility] Comment on above: Performed By: #### Joyce GIRALDO, LAB17, LAB99 ####Academic Intern: CLARE HUGGINS ([id number])[facility])[address] [place] [address] [place] Sodium [Moles/Vol] 136 mmol/L Normal 136-145 [facility] Comment on above: Performed By: #### L AB68, LAB17, LAB99 ####Academic Intern: CLARE HUGGINS ([id number])[facility] (SBHLAB)[address] Urea nitrogen [Mass/Vol] 37 mg/dL High 9-23 [facility] Comment on above: Performed By: #### L AB68, LAB17, LAB99 ####Academic Intern: CLARE WINTERVERN ([id number])[facility] GERALDSOC[facility]RO [facility]AL HOSPITALAlysa (SBHLAB)[address] Comprehensive metabolic 1998 panelon 07-15-2024 Albumin [Mass/Vol] 2.8 g/dL Low 3.4 - 4.8 g/dL [facility] ALP [Catalytic activity/Vol] 94 U/L 40 - 150 U/L [facility] ALT [Catalytic activity/Vol] 13 U/L NINF - 40 U/L [facility] Anion gap [Moles/Vol] 11 mmol/L 3 - 13 mmol/L [facility] AST [Catalytic activity/Vol] 22 U/L [facility] - [facility] U/L [facility] Comment on above: TC Potential interference from hemolysis Bilirubin [Mass/Vol] 0.4 mg/dL NINF - 1.2 mg/dL [facility] Calcium [Mass/Vol] 8.4 mg/dL Low 8.8 - 10. 0 mg/dL [facility] Chloride [Moles/Vol] 107 mmol/L 98 - 10 7 mmol/L [facility] CO2 [Moles/Vol] 18 mmol/L Low 23 - 31 mmol/L [facility] Creatinine [Mass/Vol] 1.49 mg/dL High 0.72 - 1.25 mg/dL [facility] GFR/1.73 sq M.predicted (S/P/Bld) [Vol rate/Area] 51.1 mL/min Low - PINF [facility] Comment on above: Calculation based on the Chronic Kidney Disease Epidemiology Collaboration (CKD-EPI) equation refit without adjustment for race Glucose [Mass/Vol] 305 mg/dL High 82 - 115 mg/dL [facility] Interpretation and review of laboratory results Abnormal [facility] Potassium [Moles/Vol] 5.1 mmol/L 3.5 - 5.1 mmol/L [facility] Comment on above: Plasma potassium adriana ues may be up to 0.5 mmol/L lower than serum values. Protein [Mass/Vol] 6 g/dL Low 6.4 - 8.3 g/dL [facility] Sodium [Moles/Vol] 136 mmol/L 136 - 145 mmol/L [facility] Urea nitrogen [Mass/Vol] 37 mg/dL High 9 - 23 mg/dL [facility] ED Nursing Noteon 07-15-2024 ED Nursing Note Patient taken to the floor via medic. Normal [facility] ED Nursing Note Patient arrives from [facility] via ambulance due to coffee ground emesis twice. Normal [facility] ED Provider Noteon ED Provider Note Normal [facility] FERRITINon 07-15-2024 Ferritin [Mass/Vol] 80 ng/mL Normal 22-275 [facility] Comment on above: Result Comment: TAVO Nina COMMENTS:Ferritin levels below 10 ng/mL have been reported as indicative of iron deficiency anemia. Performed By: #### L AB68, LAB17, LAB99 ####Academic Intern: CLARE HUGGINS ([id number])[facility] ([facility])[address] [place] [address] Ferritin [Mass/Vol]on 2024 Interpretation and review of laboratory results Normal [facility] Ferritin levels belo w 10 ng/mL have been reported as indicative of iron deficiency anemia. [facility] HEMOGLOBIN A1Con 07-15-2024 Glucose [Mass/Vol] 186 mg/dL Normal [facility] Comment on above: Result Comment: ORDE R COMMENTS:HbA1c values of 5.7-6.4 percent indicate an increased risk for developing diabetes mellitus. HbA1c values greater than or equal to 6.5 percent are diagnostic of diabetes mellitus. For diagnosis of diabetes in individuals without unequivocal hyperglycemia, results should be confirmed by repeat testing. Performed By: #### L AB90 ####Academic Intern: CLARE HUGGINS ([id number])[facility] (SBAB)[address] HEMOGLOBIN A1C 8.1 %HbA1C High <5.7 [facility] Comment on above: Result Comment: Norm al less than 5.7%Prediabetes 5.7% to 6.4%Diabetes 6.5% or higher--HgbA1C levels may not be accurate in patients who have renal disease, received recent blood transfusions, are anemic, or who have dyshemoglobinemia. Performed By: #### L AB90 ####Academic Intern: CLARE HUGGINS ([id number])[facility] HOSPITALPrieto [facility] ([facility])[address] [place] [address] HEMOGLOBIN AND HEMATOCRIT, B LOODon 07-15-2024 Hematocrit (Bld) [Volume fraction] 30.4 % Low 40.0-52.0 [facility] Comment on above: Performed By: #### L [id number] ####Academic Intern: CLARE HUGGINS ([id number])[facility]OSPITALPrieto [facility]ATIONAlysa ([facility])[address] [place] [address] Hemoglobin (Bld) [Mass/Vol] 9.2 g/dL Low 13.0-18.0 [facility] Comment on above: Performed By: #### L [id number] ####Academic Intern: CLARE HUGGINS ([id number])[facility] ([facility])[address] [place] [address] Hemoglobin (Bld) [Mass/Vol]O rdered By: Haydee Dixon on 07-15-2024 Hematocrit (Bld) [Volume fraction] 30.4 % Low 40.0 - 52.0 % [facility] Interpretation and review of laboratory results Abnormal [facility] LIPASEon 07-15-2024 Lipase [Catalytic activity/Vol] 8 U/L Normal <55 [facility] Comment on above: Performed By: #### L AB68, LAB17, LAB99 ####Academic Intern: CLARE HUGGINS ([id number])[facility] ([facility])[address] [place] [address] Laboratory - Chemistry and C hemistry - challengeon 07-15-2024 Glucose [Mass/Vol] 191 mg/dL High 70 - 100 mg/dL [facility] Glucose [Mass/Vol] 261 mg/dL High 70 - 100 mg/dL [facility] Ferritin [Mass/Vol] 80 ng/mL 22 - 275 ng/mL [facility] Average glucose Estimated from glycated hemoglobin (Bld) [Mass/Vol] 186 mg/dL [facility] Lipase [Catalytic activity/Vol] 8 U/L NINF - 55 U/L [facility] Laboratory - Chemistry and C hemistry - challengeOrdered By: Papo Christopher on 07-15-2024 Base excess Calc (Bld) [Moles/Vol] -3.3000 mmol/L Low -3.0 - 3.0 mmol/L [facility] CO2 (Bld) [Partial pressure] 46.3 mm[Hg] [facility] CO2 [Moles/Vol] 24.4 mmol/L 22.0 - 28.0 mmol/L [facility] HCO3 (Bld) [Moles/Vol] 22.9 mmol/L 21.0 - 27.0 mmol/L [facility] Oxygen (Bld) [Partial pressure] 70.1 mm[Hg] Low [facility] pH (Bld) 7.313 [pH] Low 7.350 - 7.450 [facility] Laboratory - Coagulationon 0 07-15-2024 aPTT Coag (PPP) [Time] 31.2 s High 20.0 - 30.5 s [facility] INR Coag (PPP) [Relative time] 1.1 {INR} 0.9 - 1.1 [facility] Comment on above: Recommended Anticoag ulant Therapy: [...] s High 9.0 - 1 2.0 s [facility] Laboratory - Hematology and Cell countsOrdered By: Haydee Dixon on 07-15-2024 Hemoglobin (Bld) [Mass/Vol] 9.2 g/dL Low 13.0 - 18.0 g/dL [facility] Laboratory - Hematology and Cell countsOrdered By: Papo Christopher on 07-15-2024 Hemoglobin (Bld) [Mass/Vol] 11.4 g/dL Low Screen only [facility] Laboratory - Hematology and Cell countson 07-15-2024 HbA1c (Bld) [Mass fraction] 8.1 % High NINF [employer] [facility] [employer] Comment on above: Normal less than 5.7 % Prediabetes 5.7% to 6.4% Diabetes 6.5% or higher --HgbA1C levels may not be accurate in patients who have renal disease, received recent blood transfusions, are anemic, or who have dyshemoglobinemia. Laboratory - Microbiology an d Antimicrobial susceptibilityon 07-15-2024 FLUAV RNA JOAN+probe Ql (Resp) Not detected Not Detected [facility] FLUBV RNA JOAN+probe Ql (Resp) Not detected Not Detected [facility] RSV RNA JOAN+probe Ql (Resp) Not detected Not Detected [facility] SARS-CoV-2 (COVID-19) RNA JOAN+probe Ql (Resp) Not detected Not Detected [facility] SARS-CoV-2 (COVID-19) RNA JOAN+probe Ql (Unsp spec) Methodology: real-time, RT-PCR The SARS-CoV-2, Flu A/B, and RSV Combo assay is intended for in vitro diagnostic use under the FDA Emergency Use Authorization (EUA). This test has not been FDA cleared or approved. In compliance with this authorization, please visit www.fda.gov/media/81990 5/download or www.fda.gov/media/27771 6/download to access the applicable information sheets. [facility] Lipase [Catalytic activity/V ol]on 07-15-2024 Interpretation and review of laboratory results Normal [facility] No Panel Informationon 07-15 Interpretation and review of laboratory results Abnormal [facility] Performed by: [facility], [address] [place] [id number] CLIA ID: [id number] [facility] Interpretation and review of laboratory results Abnormal [facility] Performed by: [facility], [address] [facility] [address] CLIA ID: [id number] [facility] Interpretation and review of laboratory results Abnormal [facility] HbA1c values of 5.7- 6.4 percent indicate an increased risk for developing diabetes mellitus. HbA1c values greater than or equal to 6.5 percent are diagnostic of diabetes mellitus. For diagnosis of diabetes in individuals without unequivocal hyperglycemia, results should be confirmed by repeat testing. [facility] Interpretation and review of laboratory results Abnormal [facility] No Panel InformationOrdered By: Papo Christopher on 07-15-2024 Amount Of Oxygen 6 [facility] Interpretation and review of laboratory results Abnormal [facility] Source Of Oxygen Nasal Cannula (LPM) [facility] PROTIME AND APTTon aPTT Coag (Bld) [Time] 31.2 s High 20.0-30.5 [facility] Comment on above: Performed By: #### L [id number] ####Academic Intern: CLARE HUGGINS ([id number])[facility] ([facility])[address] [place] [address] INR Coag (PPP) [Relative time] 1.1 {INR} Normal 0.9-1.1 [facility] Comment on above: Result Comment: Lux [...] prevent Myocardial Infarction Performed By: #### L [id number] ####Academic Intern: CLARE HUGGINS ([id number])[facility]ITALPrieto [place] [facility])[address] PT Coag (PPP) [Time] 12.3 s High 9.0-12.0 [facility] Comment on above: Performed By: #### L [id number] ####Academic Intern: CLARE HUGGINS ([id number])[facility] ([facility])[address] SARS-COV-2, FLU A/B, AND RSV COMBOon 07-15-2024 SARS-CoV-2 (COVID-19) RNA JOAN+probe Ql (Unsp spec) Normal [facility] Comment on above: Performed By: #### L [id number] ####Academic Intern: CLARE HUGGINS ([id number])[facility] (SBHLAB)[address] [place] [address] SARS-CoV-2, Flu A/B, and RSV Comboon 07-15-2024 Interpretation and review of laboratory results Normal [facility] XR Chest Single viewon 07-15 Borderline cardiomegaly. Low lung volumes and pulmonary vascular congestion. No lobar consolidation is seen. Report Dictated on Electronically Signed By: Melvin Scott MD Electronically Signed Date/Time: 07/15/2024 12:22 PM EDT [facility] Patient Name: JAMES REYES : 1955 [...] There are degenerative changes of the spine. [facility] Melvin Scott MD - 07/15/2024 Patient Name: [...] Electronically Signed Date/Time: 07/15/2024 12:22 PM EDT [facility] Radiology Study observation (narrative) [facility] alth XR Chest Single viewOrdered By: Melvin Scott on 07-15-2024 [facility] Hemoglobin A1c percentageOrd ered By: Chelle Troncoso on 07-01-2024 HbA1c (Bld) [Mass fraction] 8.6 % >5.7 [facility] POC URINALYSIS DIP STICK AUTO W/O MICRO (CRN)Ordered By: Dean Lomeli on 06-27-2024 Bilirubin, UA Negative [facility] Blood, UA Trace-Intact [facility] Glucose, UA >1,000 [facility] Ketones, UA (mg/dL) Negative Negative mg/dL [facility] Leukocytes, UA Small [facility] Nitrite, UA Negative [facility] pH, UA 5.5 [facility] Protein, UA Negative [facility] Spec Grav, UA 1.01 [facility] Urobilinogen, UA 0.2 [facility] alth [facility] Progress Noteon 06-27-2024 Progress Note Normal [facility] Progress Note UROJET 2% LIDOCAINE [facility] [id number] LOT [id number] EXP 05/16/2026 ADMINISTERED BY Nettie Carreon LPN 6 mL in to Urethra PATIENT [employer] Normal [facility] 30on 06-04-2024 30 Normal [facility] [id number] 06-04-2024 [id number] Normal [facility] [id number] Updates DC order entered Confirmed pickup time of 4pm by transport [employer] [place] notified Sreekanth tejeda notified Normal [facility] [id number] Normal [facility] [id number] Transport requested 4pm cook pickled meat in [employer]. Awaiting time confirmation. [facility] [phone] Discharge med list transmitted to return back to [facility] via [facility] per TCC request. [facility] Bacteria identified Cx Nom ( Bld)on 06-04-2024 Interpretation and review of laboratory results Normal [facility] Blood Collection Sit e: Left Hand [facility] Blood Collection Sit e: Right Hand [facility] CALCIUM, IONIZEDon CALCIUM IONIZED 4.60 mg/dL Normal 4.30-5.20 [facility] Comment on above: Performed By: #### L [id number] ####Academic Intern: CLARE HUGGINS ([id number])[facility] ([facility])[address] [place] [address] PH, IONIZED CALCIUM 7.40 Normal 7.31-7.46 [facility] Comment on above: Performed By: #### L AB54 ####Academic Intern: CLARE HUGGINS ([id number])[facility] (SB[facility])[address] [place] [address] CBC (HEMOGRAM)on 06-04-2024 Erythrocyte distribution width (RBC) [Ratio] 14.9 % Normal 11.5-15.0 [facility] Comment on above: Performed By: #### L [id number] ####Academic Intern: CLARE HUGGINS ([id number])[facility]ER[facility] ([facility])[address] [place] [address] Hematocrit (Bld) [Volume fraction] 32.4 % Low 40.0-52.0 [facility] Comment on above: Performed By: #### L [id number] ####Academic Intern: CLARE HUGGINS ([id number])[facility] ([facility])[address] Hemoglobin (Bld) [Mass/Vol] 9.9 g/dL Low 13.0-18.0 [facility] Comment on above: Performed By: #### L [id number] ####Academic Intern: CLARE HUGGINS ([id number])[facility] (SBHLAB)[address] MCH (RBC) [Entitic mass] 28.4 pg Normal 26.0-34.0 [facility] Comment on above: Performed By: #### L [id number] ####Academic Intern: CLARE HUGGINS ([id number])[facility]OSPITALPrieto [facility] (SBHLAB)[address] MCHC 30.6 % Normal 30.5-36.0 [facility] Comment on above: Performed By: #### L [id number] ####Academic Intern: CLARE HUGGINS ([id number])[facility]OSPITALPrieto [place] (SBHL[facility])[address] MCV (RBC) [Entitic vol] 92.8 fL Normal 77.0-99.0 [facility] Comment on above: Performed By: #### L [id number] ####Academic Intern: CLARE HUGGINS ([id number])[facility] ([facility])[address] Platelet mean volume (Bld) [Entitic vol] 10.5 fL Normal 9.0-12.7 [facility] Comment on above: Performed By: #### L [id number] ####Academic Intern: CLARE HUGGINS ([id number])[facility]PITALPrieto [place] (SBHL[facility])[address] Platelets (Bld) [#/Vol] 221 10*3/uL Normal 140-440 [facility] Comment on above: Performed By: #### L [id number] ####Academic Intern: CLARE HUGGINS ([id number])[facility]PITALPrieto [place] ([facility])[address] RBC (Bld) [#/Vol] 3.49 10*6/uL Low 4.40-5.90 [facility] Comment on above: Performed By: #### L [id number] ####Academic Intern: CLARE HUGGINS ([id number])[facility] ([facility])[address] WBC (Bld) [#/Vol] 6.7 10*3/uL Normal 3.6-10.7 [facility] Comment on above: Performed By: #### L [id number] ####Academic Intern: CLARE HUGGINS ([id number])[facility] ([facility])[address] CBC panel Auto (Bld)Ordered By: Amador Saenz on 06-04-2024 Erythrocyte distribution width (RBC) [Ratio] 14.9 % 11.5 - 15.0 % [facility] Hematocrit (Bld) [Volume fraction] 32.4 % Low 40.0 - 52.0 % [facility] Hemoglobin (Bld) [Mass/Vol] 9.9 g/dL Low 13.0 - 18.0 g/dL [facility] Interpretation and review of laboratory results Abnormal [facility] MCH (RBC) [Entitic mass] 28.4 pg 26. 0 - 34.0 pg [facility] MCHC (RBC) [Mass/Vol] 30.6 % 30.5 - 36.0 % [facility] MCV (RBC) [Entitic vol] 92.8 fL 77.0 - 99.0 fL [facility] Platelet mean volume (Bld) [Entitic vol] 10.5 fL 9.0 - 12.7 fL [facility] Platelets (Bld) [#/Vol] 221 10*3/uL 140 - 440 10*3/uL [facility] RBC (Bld) [#/Vol] 3.49 10*6/uL Low 4.40 - 5.9 0 10*6/uL [facility] WBC (Bld) [#/Vol] 6.7 10*3/uL 3.6 - 10.7 10*3/uL [facility] COMPREHENSIVE METABOLIC PANE Cricket 06-04-2024 Albumin [Mass/Vol] 3.0 g/dL Low 3.4-4.8 [facility] Comment on above: Performed By: #### L ABJackson, LAB17, [id number] ####Academic Intern: CLARE HUGGINS ([id number])[facility] [place] (SBHLAB)[address] ALP [Catalytic activity/Vol] 63 U/L Normal 40-150 [facility] Comment on above: Performed By: #### L ABJackson, LAB17, [id number] ####Academic Intern: CLARE HUGGINS ([id number])[facility] (SBHLAB)[address] ALT [Catalytic activity/Vol] 15 U/L Normal <40 [facility] Comment on above: Performed By: #### Joyce ABJackson, LAB17, [id number] ####Academic Intern: CLARE HUGGINS ([id number])[facility] (SBHLAB)[address] Anion gap [Moles/Vol] 7 mmol/L Normal 3-13 [facility] Comment on above: Performed By: #### Joyce DELGADO, LAB17, [id number] ####Academic Intern: CLARE HUGGINS ([id number])[facility] (SBHLAB)[address] AST [Catalytic activity/Vol] 16 U/L Normal <34 [facility] Comment on above: Performed By: #### L ABJackson, LAB17, [id number] ####Academic Intern: CLARE HUGGINS ([id number])[facility] (SBHLAB)[address] Bilirubin [Mass/Vol] 0.2 mg/dL Normal <1.2 [facility] Comment on above: Performed By: #### L ABJackson, LAB17, [id number] ####Academic Intern: CLARE HUGGINS ([id number])[facility] (SBHLAB)[address] Calcium [Mass/Vol] 8.6 mg/dL Low 8.8-10.0 [facility] Comment on above: Performed By: #### L ABJackson, LAB17, [id number] ####Academic Intern: CLARE HUGGINS ([id number])[facility] (SBHLAB)[address] Chloride [Moles/Vol] 105 mmol/L Normal 98-107 [facility] Comment on above: Performed By: #### Joyce ABJackson, LAB17, [id number] ####Academic Intern: CLARE HUGGINS ([id number])[facility] (SBHLAB)[address] CO2 [Moles/Vol] 28 mmol/L Normal 23-31 [facility] Comment on above: Performed By: #### Joyce DELGADO, LAB17, [id number] ####Academic Intern: CLARE HUGGINS ([id number])[facility] (SBHLAB)[address] Creatinine [Mass/Vol] 0.86 mg/dL Normal 0.72-1.25 [facility] Comment on above: Performed By: #### Joyce DELGADO, LAB17, [id number] ####Academic Intern: CLARE HUGGINS ([id number])[facility] (SBHLAB)[address] GLOMERULAR FILTRATION RATE ML/MIN/1.73 SQ M.PREDICTED >90.0 Normal >60.0 [facility] Comment on above: Result Comment: Calc ulation based on the Chronic Kidney Disease Epidemiology Collaboration (CKD-EPI) equation refit without adjustment for race Performed By: #### L ABJackson, LAB17, [id number] ####Academic Intern: CLARE HUGGINS ([id number])[facility] (SBHLAB)[address] Glucose [Mass/Vol] 200 mg/dL High 82-115 [facility] Comment on above: Performed By: #### L ABJackson, LAB17, [id number] ####Academic Intern: CLARE HUGGINS ([id number])[facility] (SBHLAB)[address] Potassium [Moles/Vol] 4.1 mmol/L Normal 3.5-5.1 [facility] Comment on above: Result Comment: [facility] potassium values may be up to 0.5 mmol/L lower than serum values. Performed By: #### L AB113, LAB17, [id number] ####Academic Intern: CLARE HUGGINS ([id number])[facility] (SBHLAB)[address] Protein [Mass/Vol] 5.5 g/dL Low 6.4-8.3 [facility] Comment on above: Performed By: #### L AB113, LAB17, SGI250 ####Academic Intern: CLARE HUGGINS ([id number])[facility] (SBHLAB)[address] Sodium [Moles/Vol] 140 mmol/L Normal 136-145 [facility] Comment on above: Performed By: #### L AB113, LAB17, BEH601 ####Academic Intern: CLARE HUGGINS ([id number])[facility] (SBHLAB)[address] Urea nitrogen [Mass/Vol] 30 mg/dL High 9-23 [facility] Comment on above: Performed By: #### L AB113, LAB17, [id number] ####Academic Intern: CLARE HUGGINS ([id number])[facility] (SBHLAB)[address] Calcium.ionized [Moles/Vol]o n 06-04-2024 Calcium.ionized (Bld) [Moles/Vol] 4.6 mg/dL 4.30 - 5.20 mg/dL [facility] Interpretation and review of laboratory results Normal [facility] PH, IONIZED CALCIUM 7.4 7.31 - 7.46 [facility] Comprehensive metabolic 1998 panelon 06-04-2024 Albumin [Mass/Vol] 3 g/dL Low 3.4 - 4.8 g/dL [facility] ALP [Catalytic activity/Vol] 63 U/L 40 - 150 U/L [facility] ALT [Catalytic activity/Vol] 15 U/L [facility] U/L [facility] Anion gap [Moles/Vol] 7 mmol/L 3 - 13 mmol/L [facility] AST [Catalytic activity/Vol] 16 U/L NINF - 34 U/L [facility] Bilirubin [Mass/Vol] 0.2 mg/dL NINF - 1.2 mg/dL [facility] Calcium [Mass/Vol] 8.6 mg/dL Low 8.8 - 10. 0 mg/dL [facility] Chloride [Moles/Vol] 105 mmol/L 98 - 10 7 mmol/L [facility] CO2 [Moles/Vol] 28 mmol/L 23 - 31 mmol/L [facility] Creatinine [Mass/Vol] 0.86 mg/dL 0.72 - 1.25 mg/dL [facility] GFR/1.73 sq M.predicted (S/P/Bld) [Vol rate/Area] - PINF [facility] Comment on above: Calculation based on the Chronic Kidney Disease Epidemiology Collaboration (CKD-EPI) equation refit without adjustment for race Glucose [Mass/Vol] 200 mg/dL High 82 - 115 mg/dL [facility] Interpretation and review of laboratory results Abnormal [facility] Potassium [Moles/Vol] 4.1 mmol/L 3.5 - 5.1 mmol/L [facility] Comment on above: Plasma potassium adriana ues may be up to 0.5 mmol/L lower than serum values. Protein [Mass/Vol] 5.5 g/dL Low 6.4 - 8.3 g/dL [facility] Sodium [Moles/Vol] 140 mmol/L 136 - 145 mmol/L [facility] Urea nitrogen [Mass/Vol] 30 mg/dL High 9 - 23 mg/dL [facility] Laboratory - Chemistry and C hemistry - challengeon 06-04-2024 Glucose [Mass/Vol] 297 mg/dL High 70 - 100 mg/dL [facility] Glucose [Mass/Vol] 121 mg/dL High 70 - 100 mg/dL [facility] Glucose [Mass/Vol] 168 mg/dL High 70 - 100 mg/dL [facility] Magnesium [Mass/Vol] 2.1 mg/dL 1.6 - 2 .6 mg/dL [facility] Laboratory - Microbiology an d Antimicrobial susceptibilityon 06-04-2024 Bacteria identified Cx Nom (Bld) No growth at 5 days [facility] MAGNESIUMon 06-04-2024 Magnesium [Mass/Vol] 2.1 mg/dL Normal 1.6-2.6 [facility] Comment on above: Result Comment: TAVO Nina COMMENTS:Higher values can be expected in females during menses. Performed By: #### L AB113, LAB17, [id number] ####Academic Intern: CLARE HUGGINS ([id number])[facility] Social RecruitingBERNADINE (SBHLAB)[address] [place] [address] [place] Magnesium [Mass/Vol]on 06-04 Higher values can be expected in females during menses. [facility] No Panel Informationon 06-04 Interpretation and review of laboratory results Abnormal [facility] Performed by: [facility], [address] [place] [id number] CLIA ID: [id number] [facility] Interpretation and review of laboratory results Abnormal [facility] Performed by: [facility], [address] [place] [address] [id number] CLIA ID: [id number] [facility] Interpretation and review of laboratory results Abnormal [facility] Performed by: [facility], [address] [place] [address] [id number] CLIA ID: [id number] [facility] Interpretation and review of laboratory results Normal [facility] Nursing Noteon 06-04-2024 Nursing Note Nurse to nurse repor t given to jS Cruz. Normal [facility] PHOSPHORUSon 06-04-2024 Phosphate [Mass/Vol] 2.7 mg/dL Normal 2.3-4.7 [facility] Comment on above: Performed By: #### L AB113, LAB17, [id number] ####Academic Intern: CLARE HUGGINS ([id number])[facility] Social RecruitingSOCORRO GENERAL HOSPITALN (SBHLAB)[address] [place] [address] [place] Phosphate [Moles/Vol]on 05-18 Phosphate [Mass/Vol] 2.7 mg/dL 2.3 - 4 .7 mg/dL [facility] Progress Noteon 06-04-2024 Progress Note Normal [facility] Progress Note Normal [facility] 30on 06-03-2024 30 Normal [facility] [id number] 06-03-2024 [id number] Normal [facility] CALCIUM, IONIZEDon CALCIUM IONIZED 4.70 mg/dL Normal 4.30-5.20 [facility] Comment on above: Performed By: #### L AB54 ####Academic Intern: CLARE HUGGINS ([id number])[facility] ([facility])[address] [place] [address] PH, IONIZED CALCIUM 7.33 Normal 7.31-7.46 [facility] Comment on above: Performed By: #### L AB54 ####Academic Intern: CLARE HUGGINS ([id number])[facility] ([facility])[address] [place] [address] CBC (HEMOGRAM)on 06-03-2024 Erythrocyte distribution width (RBC) [Ratio] 15.1 % High 11.5-15.0 [facility] Comment on above: Performed By: #### L AB294 ####Academic Intern: CLARE HUGGINS ([id number])[facility], INCBERNADINE ([facility])[address] [place] [address] Hematocrit (Bld) [Volume fraction] 30.6 % Low 40.0-52.0 [facility] Comment on above: Performed By: #### L AB294 ####Academic Intern: CLARE HUGGINS ([id number])[facility] ([facility])[address] [place] [address] Hemoglobin (Bld) [Mass/Vol] 9.2 g/dL Low 13.0-18.0 [facility] Comment on above: Performed By: #### L AB294 ####Academic Intern: CLARE HUGGINS ([id number])[place] (SBHLAB)[address] MCH (RBC) [Entitic mass] 28.6 pg Normal 26.0-34.0 [facility] Comment on above: Performed By: #### L AB294 ####Academic Intern: CLARE HUGGINS ([id number])[facility] [place] (SBHLAB)[address] MCHC 30.1 % Low 30.5-36.0 [facility] Comment on above: Performed By: #### L AB294 ####Academic Intern: CLARE HUGGINS ([id number])[facility] [place] (SBHLAB)[address] MCV (RBC) [Entitic vol] 95.0 fL Normal 77.0-99.0 [facility] Comment on above: Performed By: #### L AB294 ####Academic Intern: CLARE HUGGINS ([id number])[facility] [place] (SBHLAB)[address] Platelet mean volume (Bld) [Entitic vol] 10.7 fL Normal 9.0-12.7 [facility] Comment on above: Performed By: #### L AB294 ####Academic Intern: CLARE HUGGINS ([id number])[facility] HOSPITALPrieto [place] (SBHLAB)[address] [place] [address] [place] Platelets (Bld) [#/Vol] 197 10*3/uL Normal 140-440 [facility] Comment on above: Performed By: #### L AB294 ####Academic Intern: CLARE HUGGINS ([id number])[facility] [place] (SBHLAB)[address] RBC (Bld) [#/Vol] 3.22 10*6/uL Low 4.40-5.90 [facility] Comment on above: Performed By: #### L AB294 ####Academic Intern: CLARE HUGGINS ([id number])[facility] GERALDBERNADINE (SBHLAB)[address] WBC (Bld) [#/Vol] 6.1 10*3/uL Normal 3.6-10.7 [facility] Comment on above: Performed By: #### L AB294 ####Academic Intern: CLARE HUGGINS ([id number])[facility]ITALA[facility] (SBHLAB)[address] CBC panel Auto (Bld)on 06-03 Erythrocyte distribution width (RBC) [Ratio] 15.1 % High 11.5 - 15.0 % [facility] Hematocrit (Bld) [Volume fraction] 30.6 % Low 40.0 - 52.0 % [facility] Hemoglobin (Bld) [Mass/Vol] 9.2 g/dL Low 13.0 - 18.0 g/dL [facility] Interpretation and review of laboratory results Abnormal [facility] MCH (RBC) [Entitic mass] 28.6 pg 26. 0 - 34.0 pg [facility] MCHC (RBC) [Mass/Vol] 30.1 % Low 30.5 - 36.0 % [facility] MCV (RBC) [Entitic vol] 95 fL 77.0 - 99.0 fL [facility] Platelet mean volume (Bld) [Entitic vol] 10.7 fL 9.0 - 12.7 fL [facility] Platelets (Bld) [#/Vol] 197 10*3/uL 140 - 440 10*3/uL [facility] RBC (Bld) [#/Vol] 3.22 10*6/uL Low 4.40 - 5.9 0 10*6/uL [facility] WBC (Bld) [#/Vol] 6.1 10*3/uL 3.6 - 10.7 10*3/uL [facility] COMPREHENSIVE METABOLIC PANE Cricket 06-03-2024 Albumin [Mass/Vol] 2.7 g/dL Low 3.4-4.8 [facility] Comment on above: Performed By: #### L AB113, LAB17, [id number] ####Academic Intern: CLARE HUGGINS ([id number])[facility] (SBHLAB)[address] [place] [address] [place] ALP [Catalytic activity/Vol] 56 U/L Normal 40-150 [facility] Comment on above: Performed By: #### L AB113, LAB17, RNU553 ####Academic Intern: CLARE HUGGINS ([id number])[facility] [place] (SBHLAB)[address] [place] [address] [place] ALT [Catalytic activity/Vol] 10 U/L Normal <40 [facility] Comment on above: Performed By: #### L AB113, LAB17, XDL115 ####Academic Intern: CLARE HUGGINS ([id number])[facility] [place] (SBHLAB)[address] Anion gap [Moles/Vol] 5 mmol/L Normal 3-13 [facility] Comment on above: Performed By: #### Joyce ABJackson, LAB17, [id number] ####Academic Intern: CLARE HUGGINS ([id number])[facility]A GERALDSOCORRO GENERAL HOSPITALN (SBHLAB)[address] [place] [address] [place] AST [Catalytic activity/Vol] 14 U/L Normal <34 [facility] Comment on above: Performed By: #### L ABJackson, LAB17, [id number] ####Academic Intern: CLARE HUGGINS ([id number])[facility] [place] (SBHLAB)[address] Bilirubin [Mass/Vol] 0.2 mg/dL Normal <1.2 [facility] Comment on above: Performed By: #### L AB113, LAB17, [id number] ####Academic Intern: CLARE HUGGINS ([id number])[facility] [place] (SBHLAB)[address] [place] [address] [place] Calcium [Mass/Vol] 8.3 mg/dL Low 8.8-10.0 [facility] Comment on above: Performed By: #### L AB113, LAB17, [id number] ####Academic Intern: CLARE HUGGINS ([id number])[facility] [place] (SBHLAB)[address] [place] [address] [place] Chloride [Moles/Vol] 105 mmol/L Normal 98-107 [facility] Comment on above: Performed By: #### Joyce ABJackson, LAB17, [id number] ####Academic Intern: CLARE HUGGINS ([id number])[facility] HOSPITALPrieto [place] (SBHLAB)[address] CO2 [Moles/Vol] 27 mmol/L Normal 23-31 [facility] Comment on above: Performed By: #### Joyce DELGADO, LAB17, [id number] ####Academic Intern: CLARE HUGGINS ([id number])[facility] HOSPITALPrieto [facility] (SBHLAB)[address] Creatinine [Mass/Vol] 1.03 mg/dL Normal 0.72-1.25 [facility] Comment on above: Performed By: #### Joyce DELGADO, LAB17, HAS144 ####Academic Intern: CLARE HUGGINS ([id number])[facility] HOSPITALPrieto [place] (SBHLAB)[address] [place] [address] [place] GLOMERULAR FILTRATION RATE ML/MIN/1.73 SQ M.PREDICTED 79.6 mL/min/1.73m*2 Normal >60.0 [facility] Comment on above: Result Comment: Calc ulation based on the Chronic Kidney Disease Epidemiology Collaboration (CKD-EPI) equation refit without adjustment for race Performed By: #### Joyce DELGADO, LAB17, [id number] ####Academic Intern: CLARE HUGGINS ([id number])[facility] HOSPITALPrieto WAKEFIELDAlysa (SBHLAB)[address] [place] [address] [place] Glucose [Mass/Vol] 203 mg/dL High 82-115 [facility] Comment on above: Performed By: #### oJyce DELGADO, LAB17, [id number] ####Academic Intern: CLARE HUGGINS ([id number])[facility] HOSPITALPrieto [facility] (SBHLAB)[address] Potassium [Moles/Vol] 4.3 mmol/L Normal 3.5-5.1 [facility] Comment on above: Result Comment: [facility] potassium values may be up to 0.5 mmol/L lower than serum values. Performed By: #### L AB113, LAB17, [id number] ####Academic Intern: CLARE HUGGINS ([id number])[facility]A GERALDSOCORRO GENERAL HOSPITALN (SBHLAB)[address] Protein [Mass/Vol] 5.1 g/dL Low 6.4-8.3 [facility] Comment on above: Performed By: #### L AB113, LAB17, EIK012 ####Academic Intern: CLARE HUGGINS ([id number])[facility]A [place] (SBHLAB)[address] Sodium [Moles/Vol] 137 mmol/L Normal 136-145 [facility] Comment on above: Performed By: #### L AB113, LAB17, [id number] ####Academic Intern: CLARE HUGGINS ([id number])[facility] (SBHLAB)[address] Urea nitrogen [Mass/Vol] 37 mg/dL High 9-23 [facility] Comment on above: Performed By: #### L AB113, LAB17, [id number] ####Academic Intern: CLARE MERCERKRISTYN ([id number])[facility] (SBHLAB)[address] Calcium.ionized [Moles/Vol]o n 06-03-2024 Calcium.ionized (Bld) [Moles/Vol] 4.7 mg/dL 4.30 - 5.20 mg/dL [facility] Interpretation and review of laboratory results Normal [facility] PH, IONIZED CALCIUM 7.33 7.31 - 7.46 [facility] Comprehensive metabolic 1998 panelon 06-03-2024 Albumin [Mass/Vol] 2.7 g/dL Low 3.4 - 4.8 g/dL [facility] ALP [Catalytic activity/Vol] 56 U/L 40 - 150 U/L [facility] ALT [Catalytic activity/Vol] 10 U/L NINF - 40 U/L [facility] Anion gap [Moles/Vol] 5 mmol/L 3 - 13 mmol/L [facility] AST [Catalytic activity/Vol] 14 U/L NINF - 34 U/L [facility] Bilirubin [Mass/Vol] 0.2 mg/dL NINF - 1.2 mg/dL [facility] Calcium [Mass/Vol] 8.3 mg/dL Low 8.8 - 10. 0 mg/dL [facility] Chloride [Moles/Vol] 105 mmol/L 98 - 10 7 mmol/L [facility] CO2 [Moles/Vol] 27 mmol/L 23 - 31 mmol/L [facility] Creatinine [Mass/Vol] 1.03 mg/dL 0.72 - 1.25 mg/dL [facility] GFR/1.73 sq M.predicted (S/P/Bld) [Vol rate/Area] 79.6 mL/min - PINF [facility] Comment on above: Calculation based on the Chronic Kidney Disease Epidemiology Collaboration (CKD-EPI) equation refit without adjustment for race Glucose [Mass/Vol] 203 mg/dL High 82 - 115 mg/dL [facility] Potassium [Moles/Vol] 4.3 mmol/L 3.5 - 5.1 mmol/L [facility] Comment on above: Plasma potassium adriana ues may be up to 0.5 mmol/L lower than serum values. Protein [Mass/Vol] 5.1 g/dL Low 6.4 - 8.3 g/dL [facility] Sodium [Moles/Vol] 137 mmol/L 136 - 145 mmol/L [facility] Urea nitrogen [Mass/Vol] 37 mg/dL High 9 - 23 mg/dL [facility] Laboratory - Chemistry and C hemistry - challengeon 06-03-2024 Glucose [Mass/Vol] 351 mg/dL High 70 - 100 mg/dL [facility] Glucose [Mass/Vol] 233 mg/dL High 70 - 100 mg/dL [facility] Glucose [Mass/Vol] 172 mg/dL High 70 - 100 mg/dL [facility] Glucose [Mass/Vol] 140 mg/dL High 70 - 100 mg/dL [facility] Magnesium [Mass/Vol] 2.1 mg/dL 1.6 - 2 .6 mg/dL [facility] MAGNESIUMon 06-03-2024 Magnesium [Mass/Vol] 2.1 mg/dL Normal 1.6-2.6 [facility] Comment on above: Result Comment: TAVO Nina COMMENTS:Higher values can be expected in females during menses. Performed By: #### L AB113, LAB17, [id number] ####Academic Intern: CLARE HUGGINS ([id number])[facility] HOSPITALPrieto GERALDBERNADINE (SBHLAB)[address] [place] [address] [place] Magnesium [Mass/Vol]on 06-03 Interpretation and review of laboratory results Normal [facility] Higher values can be expected in females during menses. [facility] [employer] No Panel Informationon 06-03 Interpretation and review of laboratory results Abnormal [facility] [employer] Performed by: [facility] [place] [facility], [address] [place] [id number] CLIA ID: [id number] [facility] [employer] [facility] Interpretation and review of laboratory results Abnormal [facility] [employer] Performed by: [facility] [place] [facility], [address] [place] [id number] CLIA ID: [id number] [facility] [employer] [facility] Interpretation and review of laboratory results Abnormal [facility] [employer] Performed by: [facility], [address] [place] [address] 37074 CLIA ID: [id number] [facility] [employer] [facility] Interpretation and review of laboratory results Abnormal [facility] [employer] Performed by: [facility] [place] [facility], [address] [place] [address] [id number] CLIA ID: [id number] [facility] [employer] [facility] Interpretation and review of laboratory results Abnormal [facility] Nursing Noteon 06-03-2024 Nursing Note Attempted to wean patient to 2L NC. Patient sats dropped to 87%. 88-90% on 3L NC. Patient left on 4L NC at this time with continuous pulse ox showing 94%. Instructed to call out with any needs. Normal [facility] PHOSPHORUSon 06-03-2024 Phosphate [Mass/Vol] 2.0 mg/dL Low 2.3-4.7 [facility] Comment on above: Performed By: #### L AB113, LAB17, SCY415 ####Academic Intern: CLARE HUGGINS ([id number])[facility] HOSPITALPrieto Social RecruitingBERNADINE (SBHLAB)[address] [place] [address] [place] Phosphate [Moles/Vol]on 05-18 Phosphate [Mass/Vol] 2 mg/dL Low 2.3 - 4 .7 mg/dL [facility] Progress Noteon 06-03-2024 Progress Note Normal [facility] Progress Note Normal [facility] 30on 06-02-2024 30 Normal [facility] 36on 06-02-2024 36 Normal [facility] BASIC METABOLIC PANELon 05-18 Anion gap [Moles/Vol] 6 mmol/L Normal 3-13 [facility] Comment on above: Performed By: #### L AB15, [id number], [id number] ####Academic Intern: CLARE HUGGINS ([id number])[facility] (SBHLAB)[address] Calcium [Mass/Vol] 8.3 mg/dL Low 8.8-10.0 [facility] Comment on above: Performed By: #### L AB15, [id number], [id number] ####Academic Intern: CLARE HUGGINS ([id number])[facility] [place] (SBHLAB)[address] [place] [address] [place] Chloride [Moles/Vol] 106 mmol/L Normal 98-107 [facility] Comment on above: Performed By: #### L AB15, [id number], [id number] ####Academic Intern: CLARE HUGGINS ([id number])[facility] [place] (SBHLAB)[address] [place] [address] [place] CO2 [Moles/Vol] 24 mmol/L Normal 23-31 [facility] Comment on above: Performed By: #### L AB15, [id number], [id number] ####Academic Intern: CLARE HUGGINS ([id number])[facility] (SBHLAB)[address] [place] [address] [place] Creatinine [Mass/Vol] 1.20 mg/dL Normal 0.72-1.25 [facility] Comment on above: Performed By: #### L AB15, [id number], [id number] ####Academic Intern: CLARE HUGGINS ([id number])[facility] (SBHLAB)[address] [place] [address] [place] GLOMERULAR FILTRATION RATE ML/MIN/1.73 SQ M.PREDICTED 66.3 mL/min/1.73m*2 Normal >60.0 [facility] Comment on above: Result Comment: Calc ulation based on the Chronic Kidney Disease Epidemiology Collaboration (CKD-EPI) equation refit without adjustment for race Performed By: #### L AB15, [id number], [id number] ####Academic Intern: CLARE HUGGINS ([id number])[facility] (SBHLAB)[address] [place] [address] [place] Glucose [Mass/Vol] 224 mg/dL High 82-115 [facility] Comment on above: Performed By: #### L AB15, [id number], [id number] ####Academic Intern: CLARE HUGGINS ([id number])[facility] (SBHLAB)[address] [place] [address] [place] Potassium [Moles/Vol] 4.6 mmol/L Normal 3.5-5.1 [facility] Comment on above: Result Comment: [facility] potassium values may be up to 0.5 mmol/L lower than serum values. Performed By: #### L AB15, [id number], [id number] ####Academic Intern: CLARE HUGGINS ([id number])[facility] [place] (SBHLAB)[address] [place] [address] [place] Sodium [Moles/Vol] 136 mmol/L Normal 136-145 [facility] Comment on above: Performed By: #### L AB15, [id number], [id number] ####Academic Intern: CLARE HUGGINS ([id number])[facility] ([facility] [place] [address] [place] Urea nitrogen [Mass/Vol] 50 mg/dL High 9-23 [facility] Comment on above: Performed By: #### L AB15, [id number], [id number] ####Academic Intern: CLARE HUGGINS ([id number])[facility] (SBHLAB)[address] Basic metabolic 1998 panelon 06-02-2024 Anion gap [Moles/Vol] 6 mmol/L 3 - 13 mmol/L [facility] Calcium [Mass/Vol] 8.3 mg/dL Low 8.8 - 10. 0 mg/dL [facility] Chloride [Moles/Vol] 106 mmol/L 98 - 10 7 mmol/L [facility] CO2 [Moles/Vol] 24 mmol/L 23 - 31 mmol/L [facility] Creatinine [Mass/Vol] 1.2 mg/dL 0.72 - 1.25 mg/dL [facility] GFR/1.73 sq M.predicted (S/P/Bld) [Vol rate/Area] 66.3 mL/min - PINF [facility] Comment on above: Calculation based on the Chronic Kidney Disease Epidemiology Collaboration (CKD-EPI) equation refit without adjustment for race Glucose [Mass/Vol] 224 mg/dL High 82 - 115 mg/dL [facility] Interpretation and review of laboratory results Abnormal [facility] Potassium [Moles/Vol] 4.6 mmol/L 3.5 - 5.1 mmol/L [facility] Comment on above: Plasma potassium adriana ues may be up to 0.5 mmol/L lower than serum values. Sodium [Moles/Vol] 136 mmol/L 136 - 145 mmol/L [facility] Urea nitrogen [Mass/Vol] 50 mg/dL High 9 - 23 mg/dL [facility] CALCIUM, IONIZEDon CALCIUM IONIZED 4.80 mg/dL Normal 4.30-5.20 [facility] Comment on above: Performed By: #### L AB54 ####Academic Intern: CLARE HUGGINS ([id number])[facility] (SBHLAB)[address] PH, IONIZED CALCIUM 7.32 Normal 7.31-7.46 [facility] Comment on above: Performed By: #### L AB54 ####Academic Intern: CLARE HUGGINS ([id number])[facility] (SBHLAB)[address] CBC W Auto Differential pane l (Bld)on 06-02-2024 Erythrocyte distribution width (RBC) [Ratio] 15.1 % High 11.5 - 15.0 % [facility] Hematocrit (Bld) [Volume fraction] 29.6 % Low 40.0 - 52.0 % [facility] Hemoglobin (Bld) [Mass/Vol] 8.9 g/dL Low 13.0 - 18.0 g/dL [facility] MCH (RBC) [Entitic mass] 28.6 pg 26. 0 - 34.0 pg [facility] MCHC (RBC) [Mass/Vol] 30.1 % Low 30.5 - 36.0 % [facility] MCV (RBC) [Entitic vol] 95.2 fL 77.0 - 99.0 fL [facility] Platelet mean volume (Bld) [Entitic vol] 10.4 fL 9.0 - 12.7 fL [facility] Platelets (Bld) [#/Vol] 206 10*3/uL 140 - 440 10*3/uL [facility] RBC (Bld) [#/Vol] 3.11 10*6/uL Low 4.40 - 5.9 0 10*6/uL [facility] WBC (Bld) [#/Vol] 7.5 10*3/uL 3.6 - 10.7 10*3/uL [facility] CBC WITH AUTO DIFFERENTIALon 06-02-2024 Erythrocyte distribution width (RBC) [Ratio] 15.1 % High 11.5-15.0 [facility] Comment on above: Performed By: #### L [id number], [id number] ####Academic Intern: CLARE HUGGINS ([id number])[facility] ([facility])[address] [place] [address] Hematocrit (Bld) [Volume fraction] 29.6 % Low 40.0-52.0 [facility] Comment on above: Performed By: #### L [id number], [id number] ####Academic Intern: CLARE HUGGINS ([id number])[facility] ([facility])[address] [place] [address] Hemoglobin (Bld) [Mass/Vol] 8.9 g/dL Low 13.0-18.0 [facility] Comment on above: Performed By: #### L [id number], [id number] ####Academic Intern: CLARE HUGGINS ([id number])[facility] (SBHLAB)[address] MCH (RBC) [Entitic mass] 28.6 pg Normal 26.0-34.0 [facility] Comment on above: Performed By: #### L [id number], [id number] ####Academic Intern: CLARE HUGGINS ([id number])[facility] HOSPITALPrieto [facility] (SBHLAB)[address] MCHC 30.1 % Low 30.5-36.0 [facility] Comment on above: Performed By: #### L [id number], [id number] ####Academic Intern: CLARE MERCERKRISTYN ([id number])[facility]ITALPrieto [facility] (SBHLAB)[address] MCV (RBC) [Entitic vol] 95.2 fL Normal 77.0-99.0 [facility] Comment on above: Performed By: #### L [id number], [id number] ####Academic Intern: CLARE HUGGINS ([id number])[facility]ITALPrieto [facility] (SBHLAB)[address] Platelet mean volume (Bld) [Entitic vol] 10.4 fL Normal 9.0-12.7 [facility] Comment on above: Performed By: #### L [id number], [id number] ####Academic Intern: CLARE HUGGINS ([id number])[facility]ITALPrieto [facility] (SBHLAB)[address] Platelets (Bld) [#/Vol] 206 10*3/uL Normal 140-440 [facility] Comment on above: Performed By: #### L [id number], [id number] ####Academic Intern: CLARE HUGGINS ([id number])[facility]ITALPrieto [facility] (SBHLAB)[address] RBC (Bld) [#/Vol] 3.11 10*6/uL Low 4.40-5.90 [facility] Comment on above: Performed By: #### L [id number], [id number] ####Academic Intern: CLARE HUGGINS ([id number])[facility] (SBHLAB)[address] [place] [address] WBC (Bld) [#/Vol] 7.5 10*3/uL Normal 3.6-10.7 [facility] Comment on above: Performed By: #### L [id number], [id number] ####Academic Intern: CLARE JOSELUIS ([id number])[facility] ([facility])[address] [place] [address] Calcium.ionized [Moles/Vol]o n 06-02-2024 Calcium.ionized (Bld) [Moles/Vol] 4.8 mg/dL 4.30 - 5.20 mg/dL [facility] Interpretation and review of laboratory results Normal [facility] PH, IONIZED CALCIUM 7.32 7.31 - 7.46 [facility] Consult[facility] 06-02-2024 Consult Normal [facility] Laboratory - Chemistry and C hemistry - challengeon 06-02-2024 Glucose [Mass/Vol] 195 mg/dL High 70 - 100 mg/dL [facility] Glucose [Mass/Vol] 148 mg/dL High 70 - 100 mg/dL [facility] Glucose [Mass/Vol] 186 mg/dL High 70 - 100 mg/dL [facility] Glucose [Mass/Vol] 178 mg/dL High 70 - 100 mg/dL [facility] Magnesium [Mass/Vol] 2.4 mg/dL 1.6 - 2 .6 mg/dL [facility] Laboratory - Hematology and Cell countson 06-02-2024 Band form neutrophils (Bld) [#/Vol] 0.1 10*3/uL High NINF - 0.0 10*3/uL [facility] Band form neutrophils/100 WBC (Bld) 1 % High NINF - 0 % [facility] Hypochromia Ql (Bld) Slight Abnormal (none) [facility] Lymphocytes (Bld) [#/Vol] 0.5 10*3/uL Low 1.0 - 4.3 10*3/uL [facility] Lymphocytes/100 WBC (Bld) 7 % Low 15 - 45 % [facility] Monocytes (Bld) [#/Vol] 0.2 10*3/uL 0.0 - 0.9 10*3/uL [facility] Monocytes/100 WBC (Bld) 2 % Low 5 - 13 % [facility] Neutrophils (Bld) [#/Vol] 6.8 10*3/uL 1.8 - 7.5 10*3/uL [facility] Ovalocytes LM Ql (Bld) Moderate Abnormal (none) [facility] Poikilocytosis LM Ql (Bld) Slight Abnormal (none) [facility] Polychromasia LM Ql (Bld) Slight Abnormal (none) [facility] RBC morphology finding Nom (Bld) abnormal [facility] Segmented neutrophils/100 WBC (Bld) 90 % High 38 - 82 % [facility] MAGNESIUMon 06-02-2024 Magnesium [Mass/Vol] 2.4 mg/dL Normal 1.6-2.6 [facility] Comment on above: Result Comment: TAVO Nina COMMENTS:Higher values can be expected in females during menses. Performed By: #### L AB15, [id number], [id number] ####Academic Intern: CLARE HUGGINS ([id number])[facility] ([facility])[address] [place] [address] MANUAL DIFFERENTIAL (CELLAVI JARROD)on 06-02-2024 BAND NEUTROPHILS TOTAL PER COUNTED LEUKOCYTES BY MANUAL COUNT 1 Normal [facility] Comment on above: Performed By: #### L [id number], [id number] ####Academic Intern: CLARE HUGGINS ([id number])[facility] ([facility])[address] BANDS (10*3/UL) IN BLOOD-CELLAVISION 0.1 10*3/uL High <=0.0 [facility] Comment on above: Performed By: #### L [id number], [id number] ####Academic Intern: CLARE HUGGINS ([id number])[facility] ([facility])[address] [place] [address] [place] BASOPHILS TOTAL PER COUNTED LEUKOCYTES BY MANUAL COUNT Normal [facility] Comment on above: Performed By: #### L [id number], [id number] ####Academic Intern: CLARE HUGGINS ([id number])[facility] [place] (SBHLAB)[address] [place] [address] [place] BLASTS TOTAL PER COUNTED LEUKOCYTES BY MANUAL COUNT Normal [facility] Comment on above: Performed By: #### L [id number], [id number] ####Academic Intern: CLARE HUGGINS ([id number])[facility] [place] (SBHLAB)[address] [place] [address] [place] EOSINOPHILS TOTAL PER COUNTED LEUKOCYTES BY MANUAL COUNT Normal [facility] Comment on above: Performed By: #### L [id number], [id number] ####Academic Intern: CLARE HUGGINS ([id number])[facility] [place] (SBHLAB)[address] [place] [address] [place] HYPOCHROMIA (PRESENCE) IN BLOOD BY LIGHT MICROSCOPY Slight Abnormal (none) [facility] Comment on above: Performed By: #### L [id number], [id number] ####Academic Intern: CLARE HUGGINS ([id number])[facility] [place] (SBHLAB)[address] [place] [address] [place] LYMPHOCYTES (10*3/UL) IN BLOOD-CELLAVISION 0.5 10*3/uL Low 1.0-4.3 [facility] Comment on above: Performed By: #### L [id number], [id number] ####Academic Intern: CLARE HUGGINS ([id number])[facility] [place] (SBHLAB)[address] [place] [address] [place] LYMPHOCYTES TOTAL PER COUNTED LEUKOCYTES BY MANUAL COUNT 7 Normal [facility] Comment on above: Performed By: #### L [id number], [id number] ####Academic Intern: CALRE HUGGINS ([id number])[facility] [place] (SBHLAB)[address] [place] [address] [place] LYMPHOCYTES/100 LEUKOCYTES IN BLOOD-CELLAVISION 7 % Low 15-45 [facility] Comment on above: Performed By: #### L [id number], [id number] ####Academic Intern: CLARE HUGGINS ([id number])[facility] [place] (SBHLAB)[address] [place] [address] [place] METAMYELOCYTES TOTAL PER COUNTED LEUKOCYTES BY MANUAL COUNT Normal [facility] Comment on above: Performed By: #### L [id number], [id number] ####Academic Intern: CLARE HUGGINS ([id number])[facility] [place] (SBHLAB)[address] [place] [address] [place] MONOCYTES (10*3/UL) IN BLOOD-CELLAVISION 0.2 10*3/uL Normal 0.0-0.9 [facility] Comment on above: Performed By: #### L [id number], [id number] ####Academic Intern: CLARE HUGGINS ([id number])[facility] [place] (SBHLAB)[address] [place] [address] [place] MONOCYTES TOTAL PER COUNTED LEUKOCYTES BY MANUAL COUNT 2 Normal [facility] Comment on above: Performed By: #### L [id number], [id number] ####Academic Intern: CLARE HUGGINS ([id number])[facility] [place] (SBHLAB)[address] [place] [address] [place] MONOCYTES/100 LEUKOCYTES IN BLOOD-ROGER 2 % Low 5-13 [facility] Comment on above: Performed By: #### L [id number], [id number] ####Academic Intern: CLAER HUGGINS ([id number])[facility] [place] (SBHLAB)[address] [place] [address] [place] MYELOCYTES COUNTED BY MANUAL COUNT Normal [facility] Comment on above: Performed By: #### L [id number], [id number] ####Academic Intern: CLARE HUGGINS ([id number])[facility] [place] (SBHLAB)[address] [place] [address] [place] NEUTROPHILS BAND FORM/100 LEUKOCYTES IN BLOOD-CELLAVISI 1 % High <=0 [facility] Comment on above: Performed By: #### L [id number], [id number] ####Academic Intern: CLARE HUGGINS ([id number])[facility] (SBHLAB)[address] [place] [address] [place] NEUTROPHILS TOTAL PER COUNTED LEUKOCYTES BY MANUAL COUNT 90 Normal [facility] Comment on above: Performed By: #### L [id number], [id number] ####Academic Intern: CLARE MERCERKRISTYN ([id number])[facility]A [facility] (SBHLAB)[address] [place] [address] [place] OVALOCYTES PRESENCE IN BLOOD BY LIGHT MICROSCOPY Moderate Abnormal (none) [facility] Comment on above: Performed By: #### L [id number], [id number] ####Academic Intern: CLARE MERCERKRISTYN ([id number])[facility] (SBHLAB)[address] [place] [address] [place] POIKILOCYTOSIS (PRESENCE) IN BLOOD BY LIGHT MICROSCOPY Slight Abnormal (none) [facility] Comment on above: Performed By: #### L [id number], [id number] ####Academic Intern: CLARE HUGGINS ([id number])[facility] (SBHLAB)[address] [place] [address] [place] POLYCHROMASIA IN BLOOD BY LIGHT MICROSCOPY Slight Abnormal (none) [facility] Comment on above: Performed By: #### L [id number], [id number] ####Academic Intern: CLARE HUGGINS ([id number])[facility] ([facility])[address] [place] [address] [place] PROMYELOCYTES TOTAL PER COUNTED LEUKOCYTES BY MANUAL COUNT Normal [facility] Comment on above: Performed By: #### L [id number], [id number] ####Academic Intern: CLARE HUGGINS ([id number])[facility] (SBHLAB)[address] [place] [address] [place] RBC MORPHOLOGY IN BLOOD abnormal Normal [facility] Comment on above: Performed By: #### L [id number], [id number] ####Academic Intern: CLARE HUGGINS ([id number])[facility]ITALPrieto [place] (SBHLAB)[address] SEGMENTED NEUTROPHILS (10*3/UL) IN BLOOD-CELLAVISION 6.8 10*3/uL Normal 1.8-7.5 [facility] Comment on above: Performed By: #### L [id number], [id number] ####Academic Intern: CLARE HUGGINS ([id number])[facility]ITALP[facility]eto [place] (SBHLAB)[address] SEGMENTED NEUTROPHILS/100 LEUKOCYTES-CE 90 % High 38-82 [facility] Comment on above: Performed By: #### L [id number], [id number] ####Academic Intern: CLARE HUGGINS ([id number])[facility]ITALPrieto [place]ABERNAD[place] (SBHLAB)[address] UNCLASSIFIED CELLS TOTAL PER COUNTED LEUKOCYTES BY MANUAL COUNT [facility] Comment on above: Performed By: #### L [id number], [id number] ####Academic Intern: CLARE HUGGINS ([id number])[facility]ITALPrieto [facility]OC[facility]OSPITALAlysa (SBHLAB)[address] VARIANT LYMPHOCYTES TOTAL PER COUNTED LEUKOCYTES BY MANUAL COUNT [facility] Comment on above: Performed By: #### L [id number], [id number] ####Academic Intern: CLARE HUGGINS ([id number])[facility] (SBHLAB)[address] [place] [address] Magnesium [Mass/Vol]on 06-02 Higher values can be expected in females during menses. [facility] No Panel Informationon 06-02 Interpretation and review of laboratory results Abnormal [facility] Performed by: [facility], [address] [place] [address] CLIA ID: [id number] [facility] Interpretation and review of laboratory results Abnormal [facility] Performed by: [facility], [address] [place] [address] CLIA ID: [id number] [facility] Interpretation and review of laboratory results Abnormal [facility] Performed by: [facility], [address] [facility] [address] CLIA ID: [id number] [facility] Interpretation and review of laboratory results Abnormal [facility] Performed by: [facility], [address] [facility] [address] CLIA ID: [id number] [facility] Atypical Lymphocytes Manual [facility] Bands Manual 1 [facility] Basophils Manual [facility] alth Blasts [facility] Eosinophils Manual [facility] Interpretation and review of laboratory results Abnormal [facility] Lymphocytes Manual 7 [facility] Metamyelocytes Manual [facility] Monocytes Manual 2 [facility] alth Myelocytes Manual [facility] ealth Neutrophils Manual 90 [facility] Promyelocytes Manual [facility] Unclassified Cells, Manual [facility] Interpretation and review of laboratory results Normal [facility] PHOSPHORUSon 06-02-2024 Phosphate [Mass/Vol] 2.5 mg/dL Normal 2.3-4.7 [facility] Comment on above: Performed By: #### L AB15, [id number], [id number] ####Academic Intern: CLARE HUGGINS ([id number])[facility] (SBHLAB)[address] [place] [address] [place] Phosphate [Moles/Vol]on 05-18 Phosphate [Mass/Vol] 2.5 mg/dL 2.3 - 4 .7 mg/dL [facility] Progress Noteon 06-02-2024 Progress Note Normal [facility] Progress Note Normal [facility] Progress Note Pt transferred out t o usacs service from icu. Normal [facility] 30on 06-01-2024 30 Normal [facility] BASIC METABOLIC PANELon 05-18 Anion gap [Moles/Vol] 6 mmol/L Normal 3-13 [facility] Comment on above: Performed By: #### L [id number], [id number], LAB15 ####Academic Intern: CLARE HUGGINS ([id number])[facility] (SBHLAB)[address] [place] [address] [place] Calcium [Mass/Vol] 8.5 mg/dL Low 8.8-10.0 [facility] Comment on above: Performed By: #### L AB103, [id number], LAB15 ####Academic Intern: CLARE HUGGINS ([id number])[facility] (SBHLAB)[address] Chloride [Moles/Vol] 105 mmol/L Normal 98-107 [facility] Comment on above: Performed By: #### L AB103, [id number], LAB15 ####Academic Intern: CLARE HUGGINS ([id number])[facility] (SBHLAB)[address] CO2 [Moles/Vol] 22 mmol/L Low 23-31 [facility] Comment on above: Performed By: #### L AB103, [id number], LAB15 ####Academic Intern: CLARE HUGGINS ([id number])[facility] ([facility])[address] Creatinine [Mass/Vol] 1.43 mg/dL High 0.72-1.25 [facility] Comment on above: Performed By: #### L AB103, [id number], LAB15 ####Academic Intern: CLARE HUGGINS ([id number])[facility] ([facility])[address] [place] [address] [place] GLOMERULAR FILTRATION RATE ML/MIN/1.73 SQ M.PREDICTED 53.7 mL/min/1.73m*2 Low >60.0 [facility] Comment on above: Result Comment: Calc ulation based on the Chronic Kidney Disease Epidemiology Collaboration (CKD-EPI) equation refit without adjustment for race Performed By: #### L AB103, [id number], LAB15 ####Academic Intern: CLARE HUGGINS ([id number])[facility] ([facility])[address] Glucose [Mass/Vol] 253 mg/dL High 82-115 [facility] Comment on above: Performed By: #### L AB103, [id number], LAB15 ####Academic Intern: CLARE HUGGINS ([id number])[facility] (SBHLAB)[address] Potassium [Moles/Vol] 4.8 mmol/L Normal 3.5-5.1 [facility] Comment on above: Result Comment: [facility] potassium values may be up to 0.5 mmol/L lower than serum values. Performed By: #### L AB103, [id number], LAB15 ####Academic Intern: CLARE HUGGINS ([id number])[facility] (SBHLAB)[address] Sodium [Moles/Vol] 133 mmol/L Low 136-145 [facility] Comment on above: Performed By: #### L AB103, [id number], LAB15 ####Academic Intern: CLARE HUGGINS ([id number])[facility] (SBHLAB)[address] Urea nitrogen [Mass/Vol] 62 mg/dL High 9-23 [facility] Comment on above: Performed By: #### L AB103, [id number], LAB15 ####Academic Intern: CLARE HUGGINS ([id number])[facility] (SBHLAB)[address] Basic metabolic 1998 panelon 06-01-2024 Anion gap [Moles/Vol] 6 mmol/L 3 - 13 mmol/L [facility] Calcium [Mass/Vol] 8.5 mg/dL Low 8.8 - 10. 0 mg/dL [facility] Chloride [Moles/Vol] 105 mmol/L 98 - 10 7 mmol/L [facility] CO2 [Moles/Vol] 22 mmol/L Low 23 - 31 mmol/L [facility] Creatinine [Mass/Vol] 1.43 mg/dL High 0.72 - 1.25 mg/dL [facility] GFR/1.73 sq M.predicted (S/P/Bld) [Vol rate/Area] 53.7 mL/min Low - PINF [facility] Comment on above: Calculation based on the Chronic Kidney Disease Epidemiology Collaboration (CKD-EPI) equation refit without adjustment for race Glucose [Mass/Vol] 253 mg/dL High 82 - 115 mg/dL [facility] [employer] Interpretation and review of laboratory results Abnormal [facility] [employer] Potassium [Moles/Vol] 4.8 mmol/L 3.5 - 5.1 mmol/L [facility] [employer] Comment on above: Plasma potassium adriana ues may be up to 0.5 mmol/L lower than serum values. Sodium [Moles/Vol] 133 mmol/L Low 136 - 145 mmol/L [facility] [employer] Urea nitrogen [Mass/Vol] 62 mg/dL High 9 - 23 mg/dL [facility] [employer] CALCIUM, IONIZEDon CALCIUM IONIZED 4.60 mg/dL Normal 4.30-5.20 [facility] Comment on above: Performed By: #### L [id number] ####Academic Intern: CLARE HUGGINS ([id number])[facility] (SBAB)[address] [place] [address] PH, IONIZED CALCIUM 7.31 Normal 7.31-7.46 [facility] Comment on above: Performed By: #### L [id number] ####Academic Intern: CLARE HUGGINS ([id number])[facility] (SBHLAB)[address] [place] [address] CBC W Auto Differential pane l (Bld)Ordered By: Nancy Kam on 06-01-2024 Basophils (Bld) [#/Vol] 0 10*3/uL 0.0 - 0.2 10*3/uL [facility] [employer] Basophils/100 WBC (Bld) 0.1 % 0.0 - 2.0 % [facility] [employer] Eosinophils (Bld) [#/Vol] 0 10*3/uL 0.0 - 0.5 10*3/uL [facility] [employer] Eosinophils/100 WBC (Bld) 0 % 0.0 - 6.0 % [facility] [employer] Erythrocyte distribution width (RBC) [Ratio] 15.4 % High 11.5 - 15.0 % [facility] [employer] Hematocrit (Bld) [Volume fraction] 30.7 % Low 40.0 - 52.0 % [facility] [employer] Hemoglobin (Bld) [Mass/Vol] 9.2 g/dL Low 13.0 - 18.0 g/dL [facility] [employer] Immature granulocytes (Bld) [#/Vol] 0.1 10*3/uL High NINF - 0.1 10*3/uL [facility] [employer] Immature granulocytes/100 WBC (Bld) 0.7 % 0.0 - 2.0 % [facility] Interpretation and review of laboratory results Abnormal [facility] Lymphocytes (Bld) [#/Vol] 0.6 10*3/uL Low 1.0 - 4.3 10*3/uL [facility] Lymphocytes/100 WBC (Bld) 6.9 % Low 15.0 - 45.0 % [facility] MCH (RBC) [Entitic mass] 29.1 pg 26. 0 - 34.0 pg [facility] MCHC (RBC) [Mass/Vol] 30 % Low 30.5 - 36.0 % [facility] MCV (RBC) [Entitic vol] 97.2 fL 77.0 - 99.0 fL [facility] Monocytes (Bld) [#/Vol] 0.6 10*3/uL 0.0 - 0.9 10*3/uL [facility] Monocytes/100 WBC (Bld) 6.4 % 5.0 - 13.0 % [facility] Neutrophils (Bld) [#/Vol] 7.8 10*3/uL High 1.8 - 7.5 10*3/uL [facility] Neutrophils/100 WBC (Bld) 85.9 % High 38.0 - 82.0 % [facility] Nucleated RBC/100 WBC (Bld) [Ratio] 0 % [facility] Platelet mean volume (Bld) [Entitic vol] 10.8 fL 9.0 - 12.7 fL [facility] [employer] Platelets (Bld) [#/Vol] 205 10*3/uL 140 - 440 10*3/uL [facility] RBC (Bld) [#/Vol] 3.16 10*6/uL Low 4.40 - 5.9 0 10*6/uL [facility] WBC (Bld) [#/Vol] 9.1 10*3/uL 3.6 - 10.7 10*3/uL [facility] CBC WITH AUTO DIFFERENTIALon 06-01-2024 Basophils (Bld) [#/Vol] 0.0 10*3/uL Normal 0.0-0.2 [facility] Comment on above: Performed By: #### L [id number] ####Academic Intern: CLARE MERCERKRISTYN ([id number])[facility] (SBHLAB)[address] Basophils/100 WBC (Bld) 0.1 % Normal 0.0-2.0 [facility] Comment on above: Performed By: #### L [id number] ####Academic Intern: CLARE MERCERKRISTYN ([id number])[facility] (SBHLAB)[address] Eosinophils (Bld) [#/Vol] 0.0 10*3/uL Normal 0.0-0.5 [facility] Comment on above: Performed By: #### L [id number] ####Academic Intern: CLARE WINTERVERN ([id number])[facility] (SBHLAB)[address] Eosinophils/100 WBC (Bld) 0.0 % Normal 0.0-6.0 [facility] Comment on above: Performed By: #### L [id number] ####Academic Intern: CLARE MERCERKRISTYN ([id number])[facility] (SBHLAB)[address] Erythrocyte distribution width (RBC) [Ratio] 15.4 % High 11.5-15.0 [facility] Comment on above: Performed By: #### L [id number] ####Academic Intern: CLARE MERCERKRISTYN ([id number])[facility] (SBHLAB)[address] Hematocrit (Bld) [Volume fraction] 30.7 % Low 40.0-52.0 [facility] Comment on above: Performed By: #### L [id number] ####Academic Intern: CLARE MERCERKRISTYN ([id number])[facility] (SBHLAB)[address] Hemoglobin (Bld) [Mass/Vol] 9.2 g/dL Low 13.0-18.0 [facility] Comment on above: Performed By: #### L [id number] ####Academic Intern: CLARE HUGGINS ([id number])[facility] (SBHLAB)[address] IMMATURE GRANS % 0.7 % Normal 0.0-2.0 [facility] Comment on above: Performed By: #### L [id number] ####Academic Intern: CLARE HUGGINS ([id number])[facility] (SBAB)[address] IMMATURE GRANS ABSOLUTE 0.1 10*3/uL High <0.1 [facility] Comment on above: Performed By: #### L [id number] ####Academic Intern: CLARE HUGGINS ([id number])[facility] (SBAB)[address] Lymphocytes (Bld) [#/Vol] 0.6 10*3/uL Low 1.0-4.3 [facility] Comment on above: Performed By: #### L [id number] ####Academic Intern: CLARE HUGGINS ([id number])[facility] Lymphocytes/100 WBC (Bld) 6.9 % Low 15.0-45.0 [facility] Comment on above: Performed By: #### L [id number] ####Academic Intern: CLARE HUGGINS ([id number])[facility] (SBAB)[address] MCH (RBC) [Entitic mass] 29.1 pg Normal 26.0-34.0 [facility] Comment on above: Performed By: #### L [id number] ####Academic Intern: CLARE HUGGINS ([id number])[facility] (SBHLAB)[address] MCHC 30.0 % Low 30.5-36.0 [facility] Comment on above: Performed By: #### L [id number] ####Academic Intern: CLARE WINTERDaniloKRISTYN ([id number])[facility] (SBHLAB)[address] MCV (RBC) [Entitic vol] 97.2 fL Normal 77.0-99.0 [facility] Comment on above: Performed By: #### L [id number] ####Academic Intern: CLARE JOSELUIS ([id number])[facility] (SBHLAB)[address] Monocytes (Bld) [#/Vol] 0.6 10*3/uL Normal 0.0-0.9 [facility] Comment on above: Performed By: #### L [id number] ####Academic Intern: CLARE HUGGINS ([id number])[facility] [place] (SBHLAB)[address] Monocytes/100 WBC (Bld) 6.4 % Normal 5.0-13.0 [facility] Comment on above: Performed By: #### L [id number] ####Academic Intern: CLARECLAUDIO HUGGINS ([id number])[facility] (SBHLAB)[address] NEUTROPHILS ABSOLUTE 7.8 10*3/uL High 1.8-7.5 [facility] Comment on above: Performed By: #### L [id number] ####Academic Intern: CLARE WINTERVERN ([id number])[facility] (SBHLAB)[address] Neutrophils/100 WBC (Bld) 85.9 % High 38.0-82.0 [facility] Comment on above: Performed By: #### L [id number] ####Academic Intern: CLARE WINTERVERN ([id number])[facility] (SBHLAB)[address] NRBC 0.0 /100 WBCs Normal 0.0-2.0 [facility] Comment on above: Performed By: #### L [id number] ####Academic Intern: CLARE BELLOCER ([id number])[facility] HOSPITALPrieto [facility] (SBHLAB)[address] Platelet mean volume (Bld) [Entitic vol] 10.8 fL Normal 9.0-12.7 [facility] Comment on above: Performed By: #### L [id number] ####Academic Intern: CLARE WINTERDaniloKRISTYN ([id number])[facility] HOSPITALPrieto [place] (SBHLAB)[address] Platelets (Bld) [#/Vol] 205 10*3/uL Normal 140-440 [facility] Comment on above: Performed By: #### L [id number] ####Academic Intern: CLARE HUGGINS ([id number])[facility] (SBAB)[address] [place] [address] RBC (Bld) [#/Vol] 3.16 10*6/uL Low 4.40-5.90 [facility] Comment on above: Performed By: #### L [id number] ####Academic Intern: CLARE WINTERVERN ([id number])[facility] (SBHLAB)[address] [place] [address] WBC (Bld) [#/Vol] 9.1 10*3/uL Normal 3.6-10.7 [facility] Comment on above: Performed By: #### L [id number] ####Academic Intern: CLARE HUGGINS ([id number])[facility] (SBHLAB)[address] [place] [address] Calcium.ionized [Moles/Vol]o n 06-01-2024 Calcium.ionized (Bld) [Moles/Vol] 4.6 mg/dL 4.30 - 5.20 mg/dL [facility] Interpretation and review of laboratory results Normal [facility] PH, IONIZED CALCIUM 7.31 7.31 - 7.46 [facility] - Chemistry and C hemistry - challengeon 06-01-2024 Glucose [Mass/Vol] 271 mg/dL High 70 - 100 mg/dL [facility] Glucose [Mass/Vol] 281 mg/dL High 70 - 100 mg/dL [facility] Glucose [Mass/Vol] 257 mg/dL High 70 - 100 mg/dL [facility] Glucose [Mass/Vol] 251 mg/dL High 70 - 100 mg/dL [facility] Magnesium [Mass/Vol] 2.6 mg/dL 1.6 - 2 .6 mg/dL [facility] MAGNESIUMon 06-01-2024 Magnesium [Mass/Vol] 2.6 mg/dL Normal 1.6-2.6 [facility] Comment on above: Result Comment: TAVO Nina COMMENTS:Higher values can be expected in females during menses. Performed By: #### L AB103, [id number], LAB15 ####Academic Intern: CLARE HUGGINS ([id number])[facility] INCBERNADINE (SBHLAB)[address] [place] [address] Magnesium [Mass/Vol]on 06-01 Higher values can be expected in females during menses. [facility] [employer] No Panel Informationon 06-01 Interpretation and review of laboratory results Abnormal [facility] [employer] Performed by: [facility], [address] [place] [address] CLIA ID: [id number] [facility] [employer] [facility] Interpretation and review of laboratory results Abnormal [facility] Performed by: [facility], [address] [place] [address] CLIA ID: [id number] [facility] [employer] [facility] Interpretation and review of laboratory results Abnormal [facility] Performed by: [facility], [address] [place] [address] CLIA ID: [id number] [facility] Interpretation and review of laboratory results Abnormal [facility] Performed by: [facility], [address] [place] [address] CLIA ID: [id number] [facility] [employer] [facility] Interpretation and review of laboratory results Normal [facility] PHOSPHORUSon 06-01-2024 Phosphate [Mass/Vol] 4.1 mg/dL Normal 2.3-4.7 [facility] Comment on above: Performed By: #### L AB103, [id number], LAB15 ####Academic Intern: CLARE HUGGINS ([id number])[facility] (SBHLAB)[address] [place] [address] [place] Phosphate [Moles/Vol]on 05-18 Phosphate [Mass/Vol] 4.1 mg/dL 2.3 - 4 .7 mg/dL [facility] Progress Noteon 06-01-2024 Progress Note Normal [facility] Progress Note Normal [facility] 30on 05-31-2024 30 Normal [facility] [id number] 05-31-2024 [id number] Normal [facility] BASIC METABOLIC PANELon 05-18 Anion gap [Moles/Vol] 8 mmol/L Normal 3-13 [facility] Comment on above: Performed By: #### L AB113, LAB15, [id number], LAB20, [id number] ####Academic Intern: CLARE HUGGINS ([id number])[facility] (SBHLAB)[address] [place] [address] [place] Calcium [Mass/Vol] 8.1 mg/dL Low 8.8-10.0 [facility] Comment on above: Performed By: #### L AB113, LAB15, QWV322, LAB20, [id number] ####Academic Intern: CLARE HUGGINS ([id number])[facility] ([facility] [place] [address] [place] Chloride [Moles/Vol] 111 mmol/L High 98-107 [facility] Comment on above: Performed By: #### L AB113, LAB15, JOP892, LAB20, [id number] ####Academic Intern: CLARE HUGGINS ([id number])[facility] (SBHLAB)[address] [place] [address] [place] CO2 [Moles/Vol] 20 mmol/L Low 23-31 [facility] Comment on above: Performed By: #### L AB113, LAB15, SUX253, LAB20, [id number] ####Academic Intern: CLARE HUGGINS ([id number])[facility] (SBHLAB)[address] Creatinine [Mass/Vol] 1.58 mg/dL High 0.72-1.25 [facility] Comment on above: Performed By: #### L AB113, LAB15, SGW135, LAB20, [id number] ####Academic Intern: CLARE HUGGINS ([id number])[facility] (SBHLAB)[address] [place] [address] [place] GLOMERULAR FILTRATION RATE ML/MIN/1.73 SQ M.PREDICTED 47.6 mL/min/1.73m*2 Low >60.0 [facility] Comment on above: Result Comment: Calc ulation based on the Chronic Kidney Disease Epidemiology Collaboration (CKD-EPI) equation refit without adjustment for race Performed By: #### L AB113, LAB15, GUH556, LAB20, [id number] ####Academic Intern: CLARE HUGGINS ([id number])[facility] ([facility])[address] [place] [address] Glucose [Mass/Vol] 194 mg/dL High 82-115 [facility] Comment on above: Performed By: #### L AB113, LAB15, ITF618, LAB20, [id number] ####Academic Intern: CLARE HUGGINS ([id number])[facility])[address] Potassium [Moles/Vol] 4.8 mmol/L Normal 3.5-5.1 [facility] Comment on above: Result Comment: [facility] potassium values may be up to 0.5 mmol/L lower than serum values. Performed By: #### L AB113, LAB15, PSR071, LAB20, [id number] ####Academic Intern: CLARE HUGGINS ([id number])[facility])[address] Sodium [Moles/Vol] 139 mmol/L Normal 136-145 [facility] Comment on above: Performed By: #### L AB113, LAB15, MIT535, LAB20, [id number] ####Academic Intern: CLARE HUGGINS ([id number])[facility] (SBHLAB)[address] Urea nitrogen [Mass/Vol] 58 mg/dL High 9-23 [facility] Comment on above: Performed By: #### L AB113, LAB15, FPL168, LAB20, [id number] ####Academic Intern: CLARE BELLOCER ([id number])[facility] (SBHLAB)[address] Basic metabolic 1998 panelon 05-31-2024 Anion gap [Moles/Vol] 8 mmol/L 3 - 13 mmol/L [facility] Calcium [Mass/Vol] 8.1 mg/dL Low 8.8 - 10. 0 mg/dL [facility] Chloride [Moles/Vol] 111 mmol/L High 98 - 10 7 mmol/L [facility] CO2 [Moles/Vol] 20 mmol/L Low 23 - 31 mmol/L [facility] Creatinine [Mass/Vol] 1.58 mg/dL High 0.72 - 1.25 mg/dL [facility] GFR/1.73 sq M.predicted (S/P/Bld) [Vol rate/Area] 47.6 mL/min Low - PINF [facility] Comment on above: Calculation based on the Chronic Kidney Disease Epidemiology Collaboration (CKD-EPI) equation refit without adjustment for race Glucose [Mass/Vol] 194 mg/dL High 82 - 115 mg/dL [facility] Potassium [Moles/Vol] 4.8 mmol/L 3.5 - 5.1 mmol/L [facility] Comment on above: Plasma potassium adriana ues may be up to 0.5 mmol/L lower than serum values. Sodium [Moles/Vol] 139 mmol/L 136 - 145 mmol/L [facility] Urea nitrogen [Mass/Vol] 58 mg/dL High 9 - 23 mg/dL [facility] CALCIUM, IONIZEDon CALCIUM IONIZED 4.10 mg/dL Low 4.30-5.20 [facility] Comment on above: Performed By: #### L AB54 ####Academic Intern: CLARE HUGGINS ([id number])[facility] (SBHLAB)[address] PH, IONIZED CALCIUM 7.37 Normal 7.31-7.46 [facility] Comment on above: Performed By: #### L AB54 ####Academic Intern: CLARE HUGGINS ([id number])[facility]ITALPrieto JARASOCORRO GENERAL HOSPITALAlysa (SBHLAB)[address] CBC W Auto Differential pane l (Bld)Ordered By: Verónica Kitchen on 05-31-2024 Erythrocyte distribution width (RBC) [Ratio] 15.3 % High 11.5 - 15.0 % [facility] Hematocrit (Bld) [Volume fraction] 33.8 % Low 40.0 - 52.0 % [facility] Hemoglobin (Bld) [Mass/Vol] 9.8 g/dL Low 13.0 - 18.0 g/dL [facility] MCH (RBC) [Entitic mass] 28.7 pg 26. 0 - 34.0 pg [facility] MCHC (RBC) [Mass/Vol] 29 % Low 30.5 - 36.0 % [facility] MCV (RBC) [Entitic vol] 99.1 fL High 77.0 - 99.0 fL [facility] Platelet mean volume (Bld) [Entitic vol] 10.8 fL 9.0 - 12.7 fL [facility] Platelets (Bld) [#/Vol] 194 10*3/uL 140 - 440 10*3/uL [facility] RBC (Bld) [#/Vol] 3.41 10*6/uL Low 4.40 - 5.9 0 10*6/uL [facility] WBC (Bld) [#/Vol] 11.4 10*3/uL High 3.6 - 10.7 10*3/uL [facility] CBC WITH AUTO DIFFERENTIALon 05-31-2024 Erythrocyte distribution width (RBC) [Ratio] 15.3 % High 11.5-15.0 [facility] Comment on above: Performed By: #### L [id number], [id number] ####Academic Intern: CLARE HUGGINS ([id number])[facility] HOSPITALPrieto WAKEFIELDAlysa (SBHLAB)[address] Hematocrit (Bld) [Volume fraction] 33.8 % Low 40.0-52.0 [facility] Comment on above: Performed By: #### L [id number], [id number] ####Academic Intern: CLARE HUGGINS ([id number])[facility] (SBHLAB)[address] Hemoglobin (Bld) [Mass/Vol] 9.8 g/dL Low 13.0-18.0 [facility] Comment on above: Performed By: #### L [id number], [id number] ####Academic Intern: CLARE HUGGINS ([id number])[facility]OSPITALPrieto JARABERNADINE (SBHLAB)[address] MCH (RBC) [Entitic mass] 28.7 pg Normal 26.0-34.0 [facility] Comment on above: Performed By: #### L [id number], [id number] ####Academic Intern: CLARE HUGGINS ([id number])[facility] HOSPITALPrieto JARAMYNORN (SBHLAB)[address] MCHC 29.0 % Low 30.5-36.0 [facility] Comment on above: Performed By: #### L [id number], [id number] ####Academic Intern: CLARE HUGGINS ([id number])[facility] J[facility]ABER[facility]DINE (SBHLAB)[address] MCV (RBC) [Entitic vol] 99.1 fL High 77.0-99.0 S [facility] Comment on above: Performed By: #### L [id number], [id number] ####Academic Intern: CLARE HUGGINS ([id number])[facility] HOSPITALPrieto BARBMYNORN (SBHLAB)[address] Platelet mean volume (Bld) [Entitic vol] 10.8 fL Normal 9.0-12.7 [facility] Comment on above: Performed By: #### L [id number], [id number] ####Academic Intern: CLARE HUGGINS ([id number])SUMMPrieto [facility] (SBHLAB)[address] Platelets (Bld) [#/Vol] 194 10*3/uL Normal 140-440 [facility] Comment on above: Performed By: #### L [id number], [id number] ####Academic Intern: CLARE HUGGINS ([id number])[facility]ERALDBAN[facility] (SBHLAB)[address] RBC (Bld) [#/Vol] 3.41 10*6/uL Low 4.40-5.90 [facility] Comment on above: Performed By: #### L [id number], [id number] ####Academic Intern: CLARE HUGGINS ([id number])[facility] (HLAB)[address] WBC (Bld) [#/Vol] 11.4 10*3/uL High 3.6-10.7 [facility] Comment on above: Performed By: #### L [id number], [id number] ####Academic Intern: CLARE HUGGINS ([id number])[facility] (HLAB)[address] Calcium.ionized [Moles/Vol]O rdered By: John Dean on 05-31-2024 Calcium.ionized (Bld) [Moles/Vol] 4.1 mg/dL Low 4.30 - 5.20 mg/dL [facility] Interpretation and review of laboratory results Abnormal [facility] PH, IONIZED CALCIUM 7.37 7.31 - 7.46 [facility] HEPATIC FUNCTION PANELon Albumin [Mass/Vol] 2.8 g/dL Low 3.4-4.8 [facility] Comment on above: Performed By: #### L AB113, LAB15, KVZ772, LAB20, [id number] ####Academic Intern: CLARE HUGGINS ([id number])[facility] (SBHLAB)[address] ALP [Catalytic activity/Vol] 69 U/L Normal 40-150 [facility] Comment on above: Performed By: #### L AB113, LAB15, KHS302, LAB20, [id number] ####Academic Intern: CLARE WINTERVERN ([id number])[facility] (SBHLAB)[address] ALT [Catalytic activity/Vol] 16 U/L Normal <40 [facility] Comment on above: Performed By: #### L AB113, LAB15, GUV591, LAB20, [id number] ####Academic Intern: CLARE WINTERVERN ([id number])[facility] (SBHLAB)[address] AST [Catalytic activity/Vol] 22 U/L Normal <34 [facility] Comment on above: Performed By: #### L AB113, LAB15, VCS750, LAB20, [id number] ####Academic Intern: CLARE HUGGINS ([id number])[facility] ([facility])[address] [place] [address] Bilirubin [Mass/Vol] 0.2 mg/dL Normal <1.2 [facility] Comment on above: Performed By: #### L AB113, LAB15, EBS877, LAB20, [id number] ####Academic Intern: CLARE WINTEREVARISTOKRISTYN ([id number])[facility])[address] [place] [address] Bilirubin.indirect [Mass/Vol] 0.1 mg/dL Normal <0.5 [facility] Comment on above: Performed By: #### L AB113, LAB15, IEW044, LAB20, [id number] ####Academic Intern: CLARE WINTEREVARISTOKRISTYN ([id number])[facility] [place] [address] Protein [Mass/Vol] 5.4 g/dL Low 6.4-8.3 [facility] Comment on above: Result Comment: Seru m protein values are higher than plasma values. Samples from recumbent persons are lower by up to 0.5 g/dL as compared to ambulatory persons. After 60 years values are lower by up to 0.2 g/dL. Performed By: #### L AB113, LAB15, HEF599, LAB20, [id number] ####Academic Intern: CLARE HUGGINS ([id number])[facility] ([facility])[address] [place] [address] Hepatic function 2000 panelo n 05-31-2024 Albumin [Mass/Vol] 2.8 g/dL Low 3.4 - 4.8 g/dL [facility] [employer] ALP [Catalytic activity/Vol] 69 U/L 40 - 150 U/L [facility] ALT [Catalytic activity/Vol] 16 U/L NINF - 40 U/L [facility] AST [Catalytic activity/Vol] 22 U/L [facility] [facility] U/L [facility] [employer] Bilirubin [Mass/Vol] 0.2 mg/dL [facility] 1.[facility] mg/dL [facility] Bilirubin.conjugated [Mass/Vol] 0.1 mg/dL NINF - 0.5 mg/dL [facility] [employer] Protein [Mass/Vol] 5.4 g/dL Low 6.4 - 8.3 g/dL [facility] [employer] Comment on above: Serum protein values are higher than plasma values. Samples from recumbent persons are lower by up to 0.5 g/dL as compared to ambulatory persons. After 60 years values are lower by up to 0.2 g/dL. Laboratory - Chemistry and C hemistry - challengeon 05-31-2024 Glucose [Mass/Vol] 274 mg/dL High 70 - 100 mg/dL [facility] Glucose [Mass/Vol] 271 mg/dL High 70 - 100 mg/dL [facility] [employer] Procalcitonin [Mass/Vol] 2.1 ng/mL High FABIAN F - 0.07 ng/mL [facility] [employer] Glucose [Mass/Vol] 235 mg/dL High 70 - 100 mg/dL [facility] Glucose [Mass/Vol] 167 mg/dL High 70 - 100 mg/dL [facility] Glucose [Mass/Vol] 233 mg/dL High 70 - 100 mg/dL [facility] [employer] Magnesium [Mass/Vol] 2.6 mg/dL 1.6 - 2 .6 mg/dL [facility] Laboratory - Hematology and Cell countson 05-31-2024 Band form neutrophils (Bld) [#/Vol] 0.3 10*3/uL High NINF - 0.0 10*3/uL [facility] Band form neutrophils/100 WBC (Bld) 3 % High NINF - 0 % [facility] [place] cells LM Ql (Bld) Slight Abnormal (none) [facility] Lymphocytes (Bld) [#/Vol] 0.6 10*3/uL Low 1.0 - 4.3 10*3/uL [facility] Lymphocytes/100 WBC (Bld) 5 % Low 15 - 45 % [facility] Monocytes (Bld) [#/Vol] 0.5 10*3/uL 0.0 - 0.9 10*3/uL [facility] Monocytes/100 WBC (Bld) 4 % Low 5 - 13 % [facility] Neutrophils (Bld) [#/Vol] 10.4 10*3/uL High 1.8 - 7.5 10*3/uL [facility] Ovalocytes LM Ql (Bld) Moderate Abnormal (none) [facility] Poikilocytosis LM Ql (Bld) Moderate Abnormal (none) [facility] RBC morphology finding Nom (Bld) abnormal [facility] Segmented neutrophils/100 WBC (Bld) 88 % High 38 - 82 % [facility] MAGNESIUMon 05-31-2024 Magnesium [Mass/Vol] 2.6 mg/dL Normal 1.6-2.6 [facility] Comment on above: Result Comment: TAVO Nina COMMENTS:Higher values can be expected in females during menses. Performed By: #### L AB113, LAB15, [id number], LAB20, [id number] ####Academic Intern: CLARE HUGGINS ([id number])[facility] (SBHLAB)[address] MANUAL DIFFERENTIAL (CELLAVI JARROD)on 05-31-2024 BAND NEUTROPHILS TOTAL PER COUNTED LEUKOCYTES BY MANUAL COUNT 3 Normal [facility] Comment on above: Performed By: #### L [id number], [id number] ####Academic Intern: CLARE HUGGINS ([id number])[facility] (SBHLAB)[address] BANDS (10*3/UL) IN BLOOD-CELLAVISION 0.3 10*3/uL High <=0.0 [facility] Comment on above: Performed By: #### L [id number], [id number] ####Academic Intern: CLARE HUGGINS ([id number])[facility] (SBHLAB)[address] BASOPHILS TOTAL PER COUNTED LEUKOCYTES BY MANUAL COUNT Normal [facility] Comment on above: Performed By: #### L [id number], [id number] ####Academic Intern: CLARE HUGGINS ([id number])[facility] (SBHLAB)[address] BLASTS TOTAL PER COUNTED LEUKOCYTES BY MANUAL COUNT [facility] Comment on above: Performed By: #### L [id number], [id number] ####Academic Intern: CLARE HUGGINS ([id number])[facility] [place] (SBHLAB)[address] ELLA CELLS PRESENCE IN BLOOD BY LIGHT MICROSCOPY Slight Abnormal (none) [facility] Comment on above: Performed By: #### L [id number], [id number] ####Academic Intern: CLARE HUGGINS ([id number])[facility] [place] (SBHLAB)[address] [place] [address] [place] EOSINOPHILS TOTAL PER COUNTED LEUKOCYTES BY MANUAL COUNT [facility] Comment on above: Performed By: #### L [id number], [id number] ####Academic Intern: CLARE HUGGINS ([id number])[facility] [place] (SBHLAB)[address] [place] [address] [place] LYMPHOCYTES (10*3/UL) IN BLOOD-CELLAVISION 0.6 10*3/uL Low 1.0-4.3 [facility] Comment on above: Performed By: #### L [id number], [id number] ####Academic Intern: CLARE HUGGINS ([id number])[facility] [place] (SBHLAB)[address] [place] [address] [place] LYMPHOCYTES TOTAL PER COUNTED LEUKOCYTES BY MANUAL COUNT 5 Normal [facility] Comment on above: Performed By: #### L [id number], [id number] ####Academic Intern: CLARE HUGGINS ([id number])[facility] (SBHLAB)[address] [place] [address] [place] LYMPHOCYTES/100 LEUKOCYTES IN BLOOD-CELLAVISION 5 % Low 15-45 [facility] Comment on above: Performed By: #### L [id number], [id number] ####Academic Intern: CLARE HUGGINS ([id number])[facility] (SBHLAB)[address] [place] [address] [place] METAMYELOCYTES TOTAL PER COUNTED LEUKOCYTES BY MANUAL COUNT [facility] Comment on above: Performed By: #### L [id number], [id number] ####Academic Intern: CLARE WINTERVERN ([id number])[facility] [place] (SBHLAB)[address] [place] [address] [place] MONOCYTES (10*3/UL) IN BLOOD-CELLAVISION 0.5 10*3/uL Normal 0.0-0.9 [facility] Comment on above: Performed By: #### L [id number], [id number] ####Academic Intern: CLARE HUGGINS ([id number])[facility] [place] (SB[facility]AB)[address] [place] [address] [place] MONOCYTES TOTAL PER COUNTED LEUKOCYTES BY MANUAL COUNT 4 Normal [facility] Comment on above: Performed By: #### L [id number], [id number] ####Academic Intern: CLARE HUGGINS ([id number])[facility] [place] (SBHLAB)[address] [place] [address] [place] MONOCYTES/100 LEUKOCYTES IN BLOOD-ROGER 4 % Low 5-13 [facility] Comment on above: Performed By: #### L [id number], [id number] ####Academic Intern: CLARE MERCERKRISTYN ([id number])[facility] [place] (SBHLAB)[address] [place] [address] [place] MYELOCYTES COUNTED BY MANUAL COUNT Normal [facility] Comment on above: Performed By: #### L [id number], [id number] ####Academic Intern: CLARE HUGGINS ([id number])[facility] [place] (SBHLAB)[address] [place] [address] [place] NEUTROPHILS BAND FORM/100 LEUKOCYTES IN BLOOD-CELLAVISI 3 % High <=0 [facility] Comment on above: Performed By: #### L [id number], [id number] ####Academic Intern: CLARE HUGGINS ([id number])[facility] [place] (SBHLAB)[address] [place] [address] [place] NEUTROPHILS TOTAL PER COUNTED LEUKOCYTES BY MANUAL COUNT 88 Normal [facility] Comment on above: Performed By: #### L [id number], [id number] ####Academic Intern: CLARE HUGGINS ([id number])[facility] [place] (SB[facility])[address] [place] [address] [place] OVALOCYTES PRESENCE IN BLOOD BY LIGHT MICROSCOPY Moderate Abnormal (none) [facility] Comment on above: Performed By: #### L [id number], [id number] ####Academic Intern: CALRE HUGGINS ([phone])[facility] [place] (SBHLAB)[address] [place] [address] [place] POIKILOCYTOSIS (PRESENCE) IN BLOOD BY LIGHT MICROSCOPY Moderate Abnormal (none) [facility] Comment on above: Performed By: #### L [id number], [id number] ####Academic Intern: CLARE HUGGINS ([id number])[facility] [place] (SB[facility])[address] [place] [address] [place] PROMYELOCYTES TOTAL PER COUNTED LEUKOCYTES BY MANUAL COUNT Normal [facility] Comment on above: Performed By: #### L [id number], [id number] ####Academic Intern: CLARE HUGGINS ([id number])[facility] [place] (SBHLAB)[address] [place] [address] [place] RBC MORPHOLOGY IN BLOOD abnormal Normal [facility] Comment on above: Performed By: #### L [id number], [id number] ####Academic Intern: CLARE HUGGINS ([id number])[facility]ITAL[facility] (SBHLAB)[address] SEGMENTED NEUTROPHILS (10*3/UL) IN BLOOD-CELLAVISION 10.4 10*3/uL High 1.8-7.5 [facility] Comment on above: Performed By: #### L [id number], [id number] ####Academic Intern: CLARE HUGGINS ([id number])[facility] (SBHLAB)[address] SEGMENTED NEUTROPHILS/100 LEUKOCYTES-CE 88 % High 38-82 [facility] Comment on above: Performed By: #### L [id number], [id number] ####Academic Intern: CLARE HUGGINS ([id number])[facility] [place] (SBHLAB)[address] UNCLASSIFIED CELLS TOTAL PER COUNTED LEUKOCYTES BY MANUAL COUNT Normal [facility] Comment on above: Performed By: #### L [id number], [id number] ####Academic Intern: CLARE HUGGINS ([id number])[facility] (SBHLAB)[address] VARIANT LYMPHOCYTES TOTAL PER COUNTED LEUKOCYTES BY MANUAL COUNT Normal [facility] Comment on above: Performed By: #### L [id number], [id number] ####Academic Intern: CLARE HUGGINS ([id number])[facility] (SBHLAB)[address] [place] [address] Magnesium [Mass/Vol]on 05-31 Interpretation and review of laboratory results Normal [facility] Higher values can be expected in females during menses. [facility] [employer] No Panel Informationon 05-31 Interpretation and review of laboratory results Abnormal [facility] Performed by: [facility], [address] [place] [address] CLIA ID: [id number] [facility] [employer] [facility] Interpretation and review of laboratory results Abnormal [facility] Performed by: [facility], [address] [address] CLIA ID: [id number] [facility] Interpretation and review of laboratory results Abnormal [facility] Performed by: [facility], [address] [place] [address] CLIA ID: [id number] [facility] Interpretation and review of laboratory results Abnormal [facility] Performed by: [facility], [address] [address] CLIA ID: [id number] [facility] Interpretation and review of laboratory results Abnormal [facility] Performed by: [facility], [address] [address] CLIA ID: [id number] [facility] Atypical Lymphocytes Manual [facility] Bands Manual 3 [facility] Basophils Manual [facility] Blasts Manual [facility] Healt h Eosinophils Manual [facility] Interpretation and review of laboratory results Abnormal [facility] Lymphocytes Manual 5 [facility] Metamyelocytes Manual [facility] Monocytes Manual 4 [facility] alth Myelocytes Manual [facility] ealth Neutrophils Manual 88 [facility] Promyelocytes Manual [facility] Unclassified Cells, Manual [facility] Interpretation and review of laboratory results Abnormal [facility] PHOSPHORUSon 05-31-2024 Phosphate [Mass/Vol] 5.2 mg/dL High 2.3-4.[address] [facility] Comment on above: Performed By: #### L [id number], LAB15, [id number], LAB20, [id number] ####Academic Intern: CLARE HUGGINS ([id number])[facility] ([facility])[address] [place] [address] PROCALCITONIN TESTon 025 PROCALCITONIN 2.10 ng/mL High <0.07 [facility] Comment on above: Result Comment: ORDE R COMMENTS:PCT <0.50 = Low risk of severe sepsis and/or septic shock.PCT >2.00 = High risk of severe sepsis and/or septic shock. Performed By: #### L AB113, LAB15, [id number], LAB20, [id number] ####Academic Intern: CLARE HUGGINS ([id number])[facility] ([facility])[address] [place] [address] Phosphate [Moles/Vol]on 05-18 Phosphate [Mass/Vol] 5.2 mg/dL High 2.3 - 4 .7 mg/dL [facility] Procalcitonin [Mass/Vol]on 0 05-31-2024 Interpretation and review of laboratory results Abnormal [facility] PCT <0.50 = Low risk of severe sepsis and/or septic shock. PCT >2.00 = High risk of severe sepsis and/or septic shock. [facility] [employer] Progress Noteon 05-31-2024 Progress Note Normal [facility] Progress [facility] Normal [facility] XR Chest Single viewon 05-31 1. Lines/Tubes/Devices/Franco [...] Electronically Signed Date/Time: 05/31/2024 5:51 AM EST [employer] Patient Name: JAMES REYES : 1955 [...] was obtained and reviewed. Special views: None. [facility] [employer] William Huston MD - 05/31/2024 Patient [...] Electronically Signed Date/Time: 05/31/2024 5:51 AM EST [facility] Radiology Study observation (narrative) [facility] deepthi XR Chest Single viewOrdered By: William Huston on 05-31-2024 [facility] Work Phone: BASIC METABOLIC PANELon 05-18 Anion gap [Moles/Vol] 10 mmol/L Normal 3-13 [facility] Comment on above: Performed By: #### L AB106, LAB15, [id number] ####Academic Intern: CLARE HUGGINS ([id number])[facility] (SBHLAB)[address] Calcium [Mass/Vol] 7.8 mg/dL Low 8.8-10.0 [facility] Comment on above: Performed By: #### L AB106, LAB15, [id number] ####Academic Intern: CLARE HUGGINS ([id number])[facility] (SBHLAB)[address] Chloride [Moles/Vol] 109 mmol/L High 98-107 [facility] Comment on above: Performed By: #### L AB106, LAB15, [id number] ####Academic Intern: CLARE JOSELUIS ([id number])[facility] (SBHLAB)[address] CO2 [Moles/Vol] 20 mmol/L Low 23-31 [facility] Comment on above: Performed By: #### L AB106, LAB15, [id number] ####Academic Intern: CLARE WINTERVERN ([id number])[facility] (SBHLAB)[address] Creatinine [Mass/Vol] 1.28 mg/dL High 0.72-1.25 [facility] Comment on above: Performed By: #### L AB106, LAB15, [id number] ####Academic Intern: CLARE WINTERVERN ([id number])[facility] (SBHLAB)[address] GLOMERULAR FILTRATION RATE ML/MIN/1.73 SQ M.PREDICTED 61.3 mL/min/1.73m*2 Normal >60.0 [facility] Comment on above: Result Comment: Calc ulation based on the Chronic Kidney Disease Epidemiology Collaboration (CKD-EPI) equation refit without adjustment for race Performed By: #### L AB106, LAB15, [id number] ####Academic Intern: CLARE WINTERVERN ([id number])[facility] (SBHLAB)[address] Glucose [Mass/Vol] 284 mg/dL High 82-115 [facility] Comment on above: Performed By: #### L AB106, LAB15, [id number] ####Academic Intern: CLARE WINTERVERN ([id number])[facility] (HLAB)[address] [place] [address] [place] Potassium [Moles/Vol] 4.8 mmol/L Normal 3.5-5.1 [facility] Comment on above: Result Comment: [facility] potassium values may be up to 0.5 mmol/L lower than serum values. Performed By: #### L AB106, LAB15, [id number] ####Academic Intern: CLARE HUGGINS ([id number])[facility] (SBHLAB)[address] [place] [address] Sodium [Moles/Vol] 139 mmol/L Normal 136-145 [facility] Comment on above: Performed By: #### L AB106, LAB15, [id number] ####Academic Intern: CLARE HUGGINS ([id number])[facility] (SB[facility])[address] [place] [address] Urea nitrogen [Mass/Vol] 44 mg/dL High 9-23 [facility] Comment on above: Performed By: #### L AB106, LAB15, [id number] ####Academic Intern: CLARE HUGGINS ([id number])[facility] [place] [address] BLOOD CULTUREon 05-30-2024 Bacteria identified Cx Nom (Bld) Normal [facility] Comment on above: Performed By: #### L [id number] ####Academic Intern: SWATI RATLIFF ([id number])[facility] [place] [address] Bacteria identified Cx Nom (Bld) Normal [facility] Comment on above: Performed By: #### L [id number] ####Academic Intern: SWATI RATLIFF ([id number])[facility])[address] [place] [address] BLOOD GAS ARTERIALon 025 Base excess Calc (Bld) [Moles/Vol] -4.0000 mmol/L Low -3.0-3.0 [facility] Comment on above: Performed By: #### L [id number] ####Academic Intern: CLARE HUGGINS ([id number])[facility] (SBHLAB)[address] [place] [address] [place] CO2 [Moles/Vol] 23.1 mmol/L Normal 22.0-28.0 [facility] Comment on above: Performed By: #### L AB76 ####Academic Intern: CLARE HUGGINS ([id number])[facility] (SBHLAB)[address] HCO3 (Bld) [Moles/Vol] 21.8 mmol/L Normal 21.0-27.0 [facility] Comment on above: Performed By: #### L [id number] ####Academic Intern: CLARE HUGGINS ([id number])[facility] [place] (SB[facility]AB)[address] Hemoglobin (Bld) [Mass/Vol] 11.5 g/dL Low Screen only [facility] Comment on above: Performed By: #### L [id number] ####Academic Intern: CLARE HUGGINS ([id number])[facility] [place] (SBHLAB)[address] [place] [address] OXYGEN SATURATION (%) IN ARTERIAL BLOOD 95.9 % Low 97.0-99.0 [facility] Comment on above: Performed By: #### L [id number] ####Academic Intern: CLARE HUGGINS ([id number])[facility] [place] (SB[facility]AB)[address] PCO2 ARTERIAL 42.5 mm Hg Normal 35.0-48.0 [facility] Comment on above: Performed By: #### L [id number] ####Academic Intern: CLARE HUGGINS ([id number])[facility] [place] (SB[facility]AB)[address] [place] [address] PH ARTERIAL 7.327 Low 7.350-7.450 [facility] Comment on above: Performed By: #### L [id number] ####Academic Intern: CLARE HUGGINS ([id number])[facility] [place] (SB[facility])[address] PO2 ARTERIAL 85.7 mm Hg Normal 83.0-108.0 [facility] Comment on above: Performed By: #### L [id number] ####Academic Intern: CLARE HUGGINS ([id number])[facility] [place] (SB[facility])[address] SOURCE OF OXYGEN Bi-PAP Normal [facility] Comment on above: Result Comment: 50% Performed By: #### L [id number] ####Academic Intern: CLARE HUGGINS ([id number])[facility] [place] ([facility])[address] Base excess Calc (Bld) [Moles/Vol] -3.0000 mmol/L Normal -3.0-3.0 [facility] Comment on above: Performed By: #### L [id number] ####Academic Intern: CLARE HUGGINS ([id number])[facility] [place] ([facility])[address] CO2 [Moles/Vol] 25.4 mmol/L Normal 22.0-28.0 [facility] Comment on above: Performed By: #### L [id number] ####Academic Intern: CLARE HUGGINS ([id number])[facility] [place] ([facility])[address] HCO3 (Bld) [Moles/Vol] 23.8 mmol/L Normal 21.0-27.0 [facility] Comment on above: Performed By: #### L [id number] ####Academic Intern: CLARE HUGGINS ([id number])[facility] (SB[facility])[address] Hemoglobin (Bld) [Mass/Vol] 11.3 g/dL Low Screen only [facility] Comment on above: Performed By: #### L [id number] ####Academic Intern: CLARE HUGGINS ([id number])[facility] (SB[facility])[address] OXYGEN SATURATION (%) IN ARTERIAL BLOOD 89.5 % Low 97.0-99.0 [facility] Comment on above: Performed By: #### L [id number] ####Academic Intern: CLARE HUGGINS ([id number])[facility] [place] ([facility])[address] PCO2 ARTERIAL 50.7 mm Hg High 35.0-48.0 [facility] Comment on above: Performed By: #### L [id number] ####Academic Intern: CLARE HUGGINS ([id number])[facility] [place] (SBHLAB)[address] PH ARTERIAL 7.290 Low 7.350-7.450 [facility] Comment on above: Performed By: #### L [id number] ####Academic Intern: CLARE HUGGINS ([id number])[facility]ITAL[facility] (SBHLAB)[address] PO2 ARTERIAL 64.1 mm Hg Low 83.0-108.0 [facility] Comment on above: Performed By: #### L [id number] ####Academic Intern: CLARE HUGGINS ([id number])[facility] [place] (SBHLAB)[address] SOURCE OF OXYGEN Heated High Flow Normal [facility] Comment on above: Performed By: #### L [id number] ####Academic Intern: CLARE HUGGINS ([id number])[facility] [place] ([facility])[address] Basic metabolic 1998 panelon 05-30-2024 Anion gap [Moles/Vol] 10 mmol/L 3 - 13 mmol/L [facility] [employer] Calcium [Mass/Vol] 7.8 mg/dL Low 8.8 - 10. 0 mg/dL [facility] Chloride [Moles/Vol] 109 mmol/L High 98 - 10 7 mmol/L [facility] CO2 [Moles/Vol] 20 mmol/L Low 23 - 31 mmol/L [facility] Creatinine [Mass/Vol] 1.28 mg/dL High 0.72 - 1.25 mg/dL [facility] GFR/1.73 sq M.predicted (S/P/Bld) [Vol rate/Area] 61.3 mL/min - PINF [facility] Comment on above: Calculation based on the Chronic Kidney Disease Epidemiology Collaboration (CKD-EPI) equation refit without adjustment for race Glucose [Mass/Vol] 284 mg/dL High 82 - 115 mg/dL [facility] Interpretation and review of laboratory results Abnormal [facility] Potassium [Moles/Vol] 4.8 mmol/L 3.5 - 5.1 mmol/L [facility] Comment on above: Plasma potassium adriana ues may be up to 0.5 mmol/L lower than serum values. Sodium [Moles/Vol] 139 mmol/L 136 - 145 mmol/L [facility] Urea nitrogen [Mass/Vol] 44 mg/dL High 9 - 23 mg/dL [facility] CBC W Auto Differential pane l (Bld)Ordered By: Nayely Saab on 05-30-2024 Erythrocyte distribution width (RBC) [Ratio] 15.5 % High 11.5 - 15.0 % [facility] Hematocrit (Bld) [Volume fraction] 34.7 % Low 40.0 - 52.0 % [facility] Hemoglobin (Bld) [Mass/Vol] 10.6 g/dL Low 13.0 - 18.0 g/dL [facility] Interpretation and review of laboratory results Abnormal [facility] MCH (RBC) [Entitic mass] 29 pg 26. 0 - 34.0 pg [facility] MCHC (RBC) [Mass/Vol] 30.5 % 30.5 - 36.0 % [facility] MCV (RBC) [Entitic vol] 94.8 fL 77.0 - 99.0 fL [facility] Platelet mean volume (Bld) [Entitic vol] 10.6 fL 9.0 - 12.7 fL [facility] Platelets (Bld) [#/Vol] 190 10*3/uL 140 - 440 10*3/uL [facility] RBC (Bld) [#/Vol] 3.66 10*6/uL Low 4.40 - 5.9 0 10*6/uL [facility] WBC (Bld) [#/Vol] 14.1 10*3/uL High 3.6 - 10.7 10*3/uL [facility] CBC WITH AUTO DIFFERENTIALon 05-30-2024 Erythrocyte distribution width (RBC) [Ratio] 15.5 % High 11.5-15.0 [facility] Comment on above: Performed By: #### L [id number], [id number] ####Academic Intern: CLARE HUGGINS ([id number])NICOLE WAKEFIELDAlysa (SBHLAB)[address] Hematocrit (Bld) [Volume fraction] 34.7 % Low 40.0-52.0 [facility] Comment on above: Performed By: #### L [id number], [id number] ####Academic Intern: CLARE JOSELUIS ([id number])[facility] HOSPITALPrieto [facility] (SBHLAB)[address] Hemoglobin (Bld) [Mass/Vol] 10.6 g/dL Low 13.0-18.0 [facility] Comment on above: Performed By: #### L [id number], [id number] ####Academic Intern: CLARE JOSELUIS ([id number])[facility] HOSPITALPrieto [facility] (SBHLAB)[address] MCH (RBC) [Entitic mass] 29.0 pg Normal 26.0-34.0 [facility] Comment on above: Performed By: #### L [id number], [id number] ####Academic Intern: CLARE JOSELUIS ([id number])[facility] HOSPITALPrieto [place] (SBHLAB)[address] MCHC 30.5 % Normal 30.5-36.0 [facility] Comment on above: Performed By: #### L [id number], [id number] ####Academic Intern: CLARE MERCERKRISTYN ([id number])[facility] HOSPITALPrieto [facility] (SBHLAB)[address] MCV (RBC) [Entitic vol] 94.8 fL Normal 77.0-99.0 [facility] Comment on above: Performed By: #### L [id number], [id number] ####Academic Intern: CLARE MERCERKRISTYN ([id number])[facility] HOSPITALPrieto [facility] (SBHLAB)[address] Platelet mean volume (Bld) [Entitic vol] 10.6 fL Normal 9.0-12.7 [facility] Comment on above: Performed By: #### L [id number], [id number] ####Academic Intern: CLARE HUGGINS ([id number])[facility]PITALA [place] (SBHLAB)[address] Platelets (Bld) [#/Vol] 190 10*3/uL Normal 140-440 [facility] Comment on above: Performed By: #### L [id number], [id number] ####Academic Intern: CLARE HUGGINS ([id number])[facility]ITALA [place] (SBHLAB)[address] RBC (Bld) [#/Vol] 3.66 10*6/uL Low 4.40-5.90 [facility] Comment on above: Performed By: #### L [id number], [id number] ####Academic Intern: CLARE HUGGINS ([id number])[facility]ITALA [place] (SBHLAB)[address] WBC (Bld) [#/Vol] 14.1 10*3/uL High 3.6-10.7 [facility] Comment on above: Performed By: #### L [id number], [id number] ####Academic Intern: CLARE HUGGINS ([id number])[facility]ITALA [place] (SBHLAB)[address] COMPLETE URINALYSISon 2024 BILIRUBIN, TOTAL PRESENCE IN URINE Negative Normal Negative [facility] Comment on above: Performed By: #### L [id number] ####Academic Intern: CLARE HUGGINS ([id number])[facility]ITALA [place] (SBHLAB)[address] Clarity (U) Turbid Abnormal Clear [facility] Comment on above: Performed By: #### L [id number] ####Academic Intern: CLARE HUGGINS ([id number])[facility]ITALA [place] (SBHLAB)[address] Color (U) Light Yellow Normal Lt. Yellow [facility] Comment on above: Performed By: #### L [id number] ####Academic Intern: CLARE MERCERKRISTYN ([id number])[facility]OS[facility]ITALA [facility] (SBHLAB)[address] [place] [address] [place] GLUCOSE (MG/DL) IN URINE >1,000 Abnormal Nor mal (<70) [facility] Comment on above: Performed By: #### L [id number] ####Academic Intern: CLARE HUGGINS ([id number])[facility] HOSPITALA [facility]ATIONN (SBHLAB)[address] [place] [address] [place] HEMOGLOBIN PRESENCE IN URINE Negative Normal Negative [facility] Comment on above: Performed By: #### L [id number] ####Academic Intern: CLARE HUGGINS ([id number])[facility] (SBHLAB)[address] Ketones Ql (U) Negative Normal Negative [facility] Comment on above: Performed By: #### L [id number] ####Academic Intern: CLARE HUGGINS ([id number])[facility] (SBHLAB)[address] LEUKOCYTE ESTERASE PRESENCE IN URINE BY TEST STRIP Negative Normal Negative [facility] Comment on above: Performed By: #### L [id number] ####Academic Intern: CLARE MERCERKRISTYN ([id number])[facility] (SBHLAB)[address] [place] [address] [place] NITRITE PRESENCE IN URINE Negative Normal Negative [facility] Comment on above: Performed By: #### L [id number] ####Academic Intern: CLARE MERCERKRISTYN ([id number])[facility] (SBHLAB)[address] [place] [address] [place] pH (U) 5.0 [pH] Normal 5.0-8.0 [facility] Comment on above: Performed By: #### L [id number] ####Academic Intern: CLARE HUGGINS ([id number])[facility] (SBHLAB)[address] [place] [address] [place] Protein (U) [Mass/Vol] Negative Normal Negative [facility] Comment on above: Performed By: #### L [id number] ####Academic Intern: CLARE HUGGINS ([id number])[facility] (SBHLAB)[address] Specific gravity (U) [Rel density] 1.017 Normal 1.005-1.030 [facility] Comment on above: Performed By: #### L [id number] ####Academic Intern: CLARE HUGGINS ([id number])[facility] (SBHLAB)[address] UROBILINOGEN (MG/DL) IN URINE Normal Normal Normal (0-1) [facility] Comment on above: Performed By: #### L [id number] ####Academic Intern: CLARE HUGGINS ([id number])[facility] ([facility])[address] [place] [address] COVID-19, Flu A/B, and RSV C omboon 05-30-2024 Interpretation and review of laboratory results Normal [facility] Consulton 05-30-2024 Consult Normal [facility] Consult Normal [facility] D-DIMER,QUANTITATIVEon 05-30 D-DIMER, INNOVANCE 0.58 mg/L High <0.50 [facility] Comment on above: Result Comment: TAVO R COMMENTS:Innovance D-Dimer values of <0.50 mg/L FEU can be used in combination with a pre-test probability model (e.g. Well's) to exclude pulmonary embolism (PE) disease, as well as an aid in the diagnosis of deep vein thrombosis (DVT). Performed By: #### L [id number] ####Academic Intern: CLARE HUGGINS ([id number])[facility] (SBHLAB)[address] ECG 12-LEADon 05-30-2024 ECG 12-LEAD IMPRESSION: Sinus tachycardia Left anterior fascicular block Borderline low voltage, extremity leads Abnormal T, consider ischemia, lateral leads Electronically Signed On 05-30-2024 11:40:42 EST by Arsh Mar Normal [facility] ED Nursing Noteon 05-30-2024 ED Nursing Note Report given to FINISHER MAP AND CHART Normal [facility] ED Nursing Note Normal [facility] ED Provider Noteon ED Provider Note Normal [facility] Fibrin D-dimer FEU (PPP) [Ma ss/Vol]on 05-30-2024 Interpretation and review of laboratory results Abnormal [facility] D-Dimer values of <0.50 mg/L FEU can be used in combination with a pre-test probability model (e.g. Well's) to exclude pulmonary embolism (PE) disease, as well as an aid in the diagnosis of deep vein thrombosis (DVT). [facility] HIGH SENSITIVITY TROPONIN, S ERIAL BASELINEon 05-30-2024 TROPONIN HS SERIAL BASELINE 13 ng/L Normal <=35 [facility] Comment on above: Result Comment: In i ndividuals presenting with symptoms > 2h, a baseline troponin <= 5 ng/L suggests acutecardiac injury is unlikely and further serial testing is generally not indicated. Performed By: #### L AB106, [id number], [id number] ####Academic Intern: CLARE HUGGINS ([id number])[facility] ([facility])[address] [place] [address] HIGH SENSITIVITY TROPONIN, S ERIAL, SECOND TESTon 05-30-2024 2H TROPONIN HS (SERIAL 2ND TROPONIN) 17 ng/L Normal <=35 [facility] Comment on above: Result Comment: Risi ng or falling troponin delta between 2 ??? 15 ng/L as compared to baseline value requires a 3rd serial troponin Performed By: #### L [id number] ####Academic Intern: CLARE HUGGINS ([id number])[facility] ([facility])[address] [place] [address] HIGH SENSITIVITY TROPONIN, S ERIAL, THIRD TESTon 05-30-2024 4H TROPONIN HS (SERIAL 3RD TROPONIN) 21 ng/L Normal <=35 [facility] Comment on above: Result Comment: 4h t roponin (3rd troponin) samples collected between 1h 40 min and 2h and 20 min of the 2h troponin collection time can be utilized to interpret delta troponins as per [facility] algorithms. Samples collected outside this timeframe need to be interpreted clinically.Rising or falling troponin delta between 2 ??? 15 ng/L as compared to 2h troponin valuerequires further evaluation. Performed By: #### L [id number] ####Academic Intern: CLARE HUGGINS ([id number])[facility] ([facility])[address] [place] [address] LACTIC ACID WITH REFLEXon Lactate [Moles/Vol] 1.4 mmol/L Normal 0.5-2.2 [facility] Comment on above: Performed By: #### L [id number] ####Academic Intern: CLARE HUGGINS ([id number])[facility] ([facility])[address] [place] [address] LEGIONELLA AND STREPTOCOCCUS URINE ANTIGENon 05-30-2024 LEGIONELLA AND STREPTOCOCCUS URINE ANTIGEN Normal [facility] Comment on above: Performed By: #### L [id number] ####Academic Intern: SWATI RATLIFF ([id number])[facility] ([facility])[address] [place] [address] Laboratory - Chemistry and C hemistry - challengeon 05-30-2024 Glucose [Mass/Vol] 309 mg/dL High 70 - 100 mg/dL [facility] Glucose [Mass/Vol] 287 mg/dL High 70 - 100 mg/dL [facility] Glucose [Mass/Vol] 247 mg/dL High 70 - 100 mg/dL [facility] Lactate [Moles/Vol] 1.4 mmol/L 0.5 - 2. 2 mmol/L [facility] Laboratory - Chemistry and C hemistry - challengeOrdered By: Kalani Moreno on 05-30-2024 Base excess Calc (Bld) [Moles/Vol] -4 mmol/L Low -3.0 - 3.0 mmol/L [facility] CO2 (Bld) [Partial pressure] 42.5 mm[Hg] [facility] CO2 [Moles/Vol] 23.1 mmol/L 22.0 - 28.0 mmol/L [facility] HCO3 (Bld) [Moles/Vol] 21.8 mmol/L 21.0 - 27.0 mmol/L [facility] Oxygen (Bld) [Partial pressure] 85.7 mm[Hg] [facility] pH (Bld) 7.327 [pH] Low 7.350 - 7.450 [facility] Laboratory - Chemistry and C hemistry - challengeOrdered By: Mayi Najera on 05-30-2024 Base excess Calc (Bld) [Moles/Vol] -3 mmol/L -3.0 - 3.0 mmol/L [facility] CO2 (Bld) [Partial pressure] 50.7 mm[Hg] High [facility] CO2 [Moles/Vol] 25.4 mmol/L 22.0 - 28.0 mmol/L [facility] HCO3 (Bld) [Moles/Vol] 23.8 mmol/L 21.0 - 27.0 mmol/L [facility] Oxygen (Bld) [Partial pressure] 64.1 mm[Hg] Low [facility] pH (Bld) 7.29 [pH] Low 7.350 - 7.450 [facility] Laboratory - Coagulationon 0 05-30-2024 Fibrin D-dimer FEU (PPP) [Mass/Vol] 0.58 mg/L High NINF - 0.50 mg/L [facility] Laboratory - Hematology and Cell countsOrdered By: Kalani Moreno on 05-30-2024 Hemoglobin (Bld) [Mass/Vol] 11.5 g/dL Low Screen only [facility] Laboratory - Hematology and Cell countsOrdered By: Mayi Najera on 05-30-2024 Hemoglobin (Bld) [Mass/Vol] 11.3 g/dL Low Screen only [facility] Laboratory - Microbiology an d Antimicrobial susceptibilityon 05-30-2024 FLUAV RNA JOAN+probe Ql (Resp) Not detected Not Detected [facility] FLUBV RNA JOAN+probe Ql (Resp) Not detected Not Detected [facility] RSV RNA JOAN+probe Ql (Resp) Not detected Not Detected [facility] SARS-CoV-2 (COVID-19) RNA JOAN+probe Ql (Resp) Not detected Not Detected [facility] SARS-CoV-2 (COVID-19) RNA JOAN+probe Ql (Unsp spec) Methodology: real-time, RT-PCR The SARS-CoV-2, Flu A/B, and RSV Combo assay is intended for in vitro diagnostic use under the FDA Emergency Use Authorization (EUA). This test has not been FDA cleared or approved. In compliance with this authorization, please visit www.fda.gov/media/48703 5/download or www.fda.gov/media/85418 6/download to access the applicable information sheets. [facility] MANUAL DIFFERENTIALon 2024 ANISOCYTOSIS PRESENCE IN BLOOD BY LIGHT MICROSCOPY Slight Abnormal (none) [facility] Comment on above: Performed By: #### L [id number], [id number] ####Academic Intern: CLARE HUGGINS ([id number])[facility]ITALA [facility] (SBHLAB)[address] BAND NEUTROPHILS TOTAL PER COUNTED LEUKOCYTES BY MANUAL COUNT 7 Normal [facility] Comment on above: Performed By: #### L [id number], [id number] ####Academic Intern: CLARE HUGGINS ([id number])[facility] ([facility])[address] BANDS 1.0 10*3/uL High <=0.0 [facility] Comment on above: Performed By: #### L [id number], [id number] ####Academic Intern: CLARE HUGGINS ([id number])[facility] (SBAB)[address] CELLS COUNTED TOTAL (#) IN BLOOD 101 Normal [facility] Comment on above: Performed By: #### L [id number], [id number] ####Academic Intern: CLARE HUGGINS ([id number])[facility] [place] (SBHLAB)[address] DIFFERENTIAL METHOD Manual differential performed Normal [facility] Comment on above: Performed By: #### L [id number], [id number] ####Academic Intern: CLARE HUGGINS ([id number])[facility] (SBHLAB)[address] LEUKOCYTE MORPHOLOGY FINDING IN BLOOD Normal Normal [facility] Comment on above: Performed By: #### L [id number], [id number] ####Academic Intern: CLARE HUGGINS ([id number])[facility] [place] (SBHLAB)[address] [place] [address] [place] LEUKOCYTES (10*3/UL) NUCLEATED ERYTHROCYTE ADJUST 14.1 10*3/uL High 3.6-10.7 [facility] Comment on above: Performed By: #### L [id number], [id number] ####Academic Intern: CLARE HUGGINS ([id number])[facility] [place] (SBHLAB)[address] [place] [address] [place] LYMPHOCYTES (10*3/UL) IN BLOOD BY MANUAL COUNT 0.3 10*3/uL Low 1.0-4.3 [facility] Comment on above: Performed By: #### L [id number], [id number] ####Academic Intern: CLARE HUGGINS ([id number])[facility] [place] (SBHLAB)[address] [place] [address] [place] LYMPHOCYTES TOTAL PER COUNTED LEUKOCYTES BY MANUAL COUNT 2 Normal [facility] Comment on above: Performed By: #### L [id number], [id number] ####Academic Intern: CLARE HUGGINS ([id number])[facility] [place] (SBHLAB)[address] [place] [address] [place] LYMPHOCYTES/100 LEUKOCYTES IN BLOOD BY MANUAL COUNT 2 % Low 15-45 [facility] Comment on above: Performed By: #### L [id number], [id number] ####Academic Intern: CLARE MERCERKRISTYN ([id number])[facility] [place] (SBHLAB)[address] [place] [address] [place] MONOCYTES (10*3/UL) IN BLOOD BY MANUAL COUNT 1.1 10*3/uL High 0.0-0.9 [facility] Comment on above: Performed By: #### L [id number], [id number] ####Academic Intern: CLARE MERCERKRISTYN ([id number])[facility] [place] (SBHLAB)[address] [place] [address] [place] MONOCYTES TOTAL PER COUNTED LEUKOCYTES BY MANUAL COUNT 8 Normal [facility] Comment on above: Performed By: #### L [id number], [id number] ####Academic Intern: CLARE HUGGINS ([id number])[facility] [place] (SBHLAB)[address] [place] [address] [place] MONOCYTES/100 LEUKOCYTES IN BLOOD BY MANUAL COUNT 8 % Normal 5-13 [facility] Comment on above: Performed By: #### L [id number], [id number] ####Academic Intern: CLARE HUGGINS ([id number])[facility] [place] (SBHLAB)[address] [place] [address] [place] NEUTROPHILS (SEGS+BANDS) (10*3/UL) BY MANUAL COUNT 12.7 10*3/uL High 1.8-7.0 [facility] Comment on above: Performed By: #### L [id number], [id number] ####Academic Intern: CLARE HUGGINS ([id number])[facility] [place] (SBHLAB)[address] [place] [address] [place] NEUTROPHILS BAND FORM/100 LEUKOCYTES IN BLOOD BY MANUAL COUNT 7 % High <=0 [facility] Comment on above: Performed By: #### L [id number], [id number] ####Academic Intern: CLARE HUGGINS ([id number])[facility] [place] (SBHLAB)[address] [place] [address] [place] NEUTROPHILS TOTAL PER COUNTED LEUKOCYTES BY MANUAL COUNT 84 Normal [facility] Comment on above: Performed By: #### L [id number], [id number] ####Academic Intern: CLARE HUGGINS ([id number])[facility] [place] (SBHLAB)[address] [place] [address] [place] OVALOCYTES PRESENCE IN BLOOD BY LIGHT MICROSCOPY Slight Abnormal (none) [facility] Comment on above: Performed By: #### L [id number], [id number] ####Academic Intern: CLARE HUGGINS ([id number])[facility] [place] (SBHLAB)[address] [place] [address] [place] PLATELET MORPHOLOGY IN BLOOD Normal Normal [facility] Comment on above: Performed By: #### L [id number], [id number] ####Academic Intern: CLARE HUGGINS ([id number])[facility] (SBHLAB)[address] [place] [address] POLYCHROMASIA IN BLOOD BY LIGHT MICROSCOPY Slight Abnormal (none) [facility] Comment on above: Performed By: #### L [id number], [id number] ####Academic Intern: CLARECLAUDIO HUGGINS ([id number])[facility] (SBHLAB)[address] SEGEMENTED NEUTROPHILS/100 LEUKOCYTES BY MANUAL COUNT 83 % High 38-82 [facility] Comment on above: Performed By: #### L [id number], [id number] ####Academic Intern: CLARE WINTERVERN ([id number])[facility] (SBAB)[address] [place] [address] SEGMENTED NEUTROPHILS (10*3/UL)IN BLOOD BY MANUAL COUNT 12.7 10*3/uL High 1.8-7.5 [facility] Comment on above: Performed By: #### L [id number], [id number] ####Academic Intern: CLARECLAUDIO HUGGINS ([id number])[facility] ([facility])[address] [place] [address] [place] MRSA BY PCRon 05-30-2024 MRSA BY PCR Normal [facility] Comment on above: Performed By: #### L [id number] ####Academic Intern: SWATI RATLIFF ([id number])[facility])[address] [place] [address] MRSA DNA JOAN+probe Ql (Nose) on 05-30-2024 Interpretation and review of laboratory results Normal [facility] mecA gene Not detected Not Detected [facility] Staphylococcus aureus Not detected Not Detected [facility] No Staphylococcus aureus detected. Negative nasal MRSA PCR has a high negative predictive value for MRSA pneumonia. Consider stopping Vancomycin if no other clinical indication. Contact Antimicrobial Stewardship for further recommendations. Staphylococcus aureus nasal screen by real-time PCR. This test was modified and its performance characteristics determined by [facility]. The U. S. Food and Drug Administration has not approved or cleared this test; however, FDA clearance or approval is not currently required for clinical use. The results are not intended to be used as the sole means for clinical diagnosis or patient management decisions. [facility] Manual differential performe d Ql (Bld)Ordered By: Paula Armenta on 05-30-2024 Anisocytosis Ql (Bld) Slight Abnormal (none) [facility] Band form neutrophils (Bld) [#/Vol] 1 10*3/uL High NINF - 0.0 10*3/uL [facility] Band form neutrophils/100 WBC (Bld) 7 % High NINF - 0 % [facility] Bands Manual 7 [facility] Cells Counted Total (Bld) [#] 101 {cells} [facility] Differential Method Manual differential performed [facility] Interpretation and review of laboratory results Abnormal [facility] Leukocyte morphology finding Nom (Bld) Normal [facility] Lymphocytes (Bld) [#/Vol] 0.3 10*3/uL Low 1.0 - 4.3 10*3/uL [facility] Lymphocytes Manual 2 [facility] Lymphocytes/100 WBC (Bld) 2 % Low 15 - 45 % [facility] Monocytes (Bld) [#/Vol] 1.1 10*3/uL High 0.0 - 0.9 10*3/uL [facility] Monocytes Manual 8 [facility] alth Monocytes/100 WBC (Bld) 8 % 5 - 13 % [facility] Neutrophils (Bld) [#/Vol] 12.7 10*3/uL High 1.8 - 7.5 10*3/uL [facility] Neutrophils Manual 84 [facility] Ovalocytes LM Ql (Bld) Slight Abnormal (none) [facility] Platelet morphology finding Nom (Bld) Normal [facility] Polychromasia LM Ql (Bld) Slight Abnormal (none) [facility] Segmented neutrophils/100 WBC (Bld) 83 % High 38 - 82 % [facility] WBC corrected for nucl RBC (Bld) [#/Vol] 14.1 10*3/uL High 3.6 - 10.7 10*3/uL [facility] NT PRO BNPon 05-30-2024 Natriuretic peptide B (Bld) [Mass/Vol] 533 pg/mL High <125 [facility] Comment on above: Performed By: #### L AB106, LAB15, [id number] ####Academic Intern: CLARE HUGGINS ([id number])[facility]PITALPrieto [facility]ARABERNADINE (SBHLAB)[address] [place] [address] Natriuretic peptide B [Mass/ Vol]on 05-30-2024 Interpretation and review of laboratory results Abnormal [facility] Natriuretic peptide B (Bld) [Mass/Vol] 533 pg/mL High NINF - 125 pg/mL [facility] No Panel Informationon 05-30 Interpretation and review of laboratory results Abnormal [facility] Performed by: [facility], [address] [place] [address] CLIA ID: [id number] [facility] Interpretation and review of laboratory results Abnormal [facility] Performed by: [facility], [address] [place] [address] CLIA ID: [id number] [facility] 4h Troponin HS (Serial 3rd Troponin) 21 ng/L NINF - 35 ng/L [facility] Comment on above: 4h troponin (3rd tro ponin) samples collected between 1h 40 min and 2h and 20 min of the 2h troponin collection time can be utilized to interpret delta troponins as per [facility] algorithms. Samples collected outside this timeframe need to be interpreted clinically. Rising or falling troponin delta between 2 15 ng/L as compared to 2h troponin value requires further evaluation. Interpretation and review of laboratory results Normal [facility] Interpretation and review of laboratory results Abnormal [facility] Performed by: [facility], [address] [place] [address] CLIA ID: [id number] [facility] P [place] 37 degrees [facility] ID Interval 195 ms [facility] QRS [place] -60 degrees [facility] QRSD [facility]val 358 ms [facility] QTC Interval 473 ms [facility] T Wave [place] 129 degrees [facility] Sinus tachycardia Left anterior fascicular block Borderline low voltage, extremity leads Abnormal T, consider ischemia, lateral leads Electronically Signed On 05-30-2024 11:40:42 EST by Arsh Mar CV Arsh Carrillo MD - 05/30/2024 IMPRESSION: Sinus tachycardia Left anterior fascicular block Borderline low voltage, extremity leads Abnormal T, consider ischemia, lateral leads Electronically Signed On 05-30-2024 11:40:42 EST by Arsh Mar [facility] 2h Troponin HS (Serial 2nd Troponin) 17 ng/L NINF - 35 ng/L [facility] Comment on above: Rising or falling tr oponin delta between 2 15 ng/L as compared to baseline value requires a 3rd serial troponin Interpretation and review of laboratory results Normal [facility] Interpretation and review of laboratory results Normal [facility] Troponin HS Serial Baseline 13 ng/L NINF - 35 ng/L [facility] Comment on above: In individuals prese nting with symptoms > 2h, a baseline troponin <= 5 ng/L suggests acute cardiac injury is unlikely and further serial testing is generally not indicated. [facility] Interpretation and review of laboratory results Normal [facility] No Panel InformationOrdered By: Rylie Salvador on 05-30-2024 Interpretation and review of laboratory results Normal [facility] Legionella pneumophila Ag Not detected Not Detected [facility] Streptococcus pneumoniae Ag Not detected Not Detected [facility] Methodology: Lateral flow enzyme immunoassay This assay is approved for detection of antigens to Streptococcus pneumoniae and Legionella pneumophila serogroup 1; however, other L. pneumophila serogroups may also be detected. [facility] No Panel InformationOrdered By: Kalani Moreno on 05-30-2024 Interpretation and review of laboratory results Abnormal [facility] Source Of Oxygen Bi-PAP [facility] Comment on above: 50% [facility] No Panel InformationOrdered By: Mayi Najera on 05-30-2024 Interpretation and review of laboratory results Abnormal [facility] Source Of Oxygen Heated High Flow [facility] Progress Noteon 05-30-2024 Progress Note Vancomycin therapy h as been discontinued by Dr. Haydee Willis on 30may2024. Thank you for the consult. Pharmacy signing off for vancomycin dosing. Henok Chang, PharmD, Date: 05/30/24 Time: 6:10 PM Normal [facility] RESPIRATORY PATHOGENS PANEL BY PCRon 05-30-2024 RESPIRATORY PATHOGENS PANEL BY PCR Normal [facility] Comment on above: Performed By: #### L [id number] ####Academic Intern: SWATI RATLIFF ([id number])[facility] Respiratory pathogens DNA an d RNA panel JOAN+non-probe (Nph)on 05-30-2024 Adenovirus Not detected Not Detected [facility] B. pertussis DNA JOAN+probe Ql (Unsp spec) Not detected Not Detected [facility] Bordetella parapertussis Not detected Not Detected [facility] Chlamydia pneumoniae Not detected Not Detected [facility] Coronavirus 229E Not detected Not Detected [facility] Coronavirus HKU1 Not detected Not Detected [facility] Coronavirus NL63 Not detected Not Detected [facility] Coronavirus OC43 Not detected Not Detected [facility] FLUAV RNA JOAN+non-probe Ql (Nph) Not detected Not Detected [facility] FLUBV RNA JOAN+non-probe Ql (Nph) Not detected Not Detected [facility] Human Metapneumovirus Not detected Not Detected [facility] Human Rhinovirus/Enterovirus Not detected Not Detected [facility] Interpretation and review of laboratory results Normal [facility] Mycoplasma pneumoniae Not detected Not Detected [facility] Parainfluenza 1 Not detected Not Detected [facility] Parainfluenza 2 Not detected Not Detected [facility] Parainfluenza 3 Not detected Not Detected [facility] Parainfluenza 4 Not detected Not Detected [facility] Respiratory Syncytial Virus Not detected Not Detected [facility] SARS-CoV-2 (COVID-19) RNA JOAN+non-probe Ql (Nph) Not detected Not Detected [facility] Methodology: Multipl ex PCR [facility] SARS-COV-2, FLU A/B, AND RSV COMBOon 05-30-2024 SARS-CoV-2 (COVID-19) RNA JOAN+probe Ql (Unsp spec) Normal [facility] Comment on above: Performed By: #### L [id number] ####Academic Intern: CLARE HUGGINS ([id number])[facility] (SBHL[facility])[address] [place] [address] Urinalysis complete panel (U )Ordered By: Papo Christopher on 05-30-2024 Bilirubin Ql (U) Negative Negative mg/dL [facility] Clarity (U) Turbid Abnormal Clear [facility] Color (U) Light Yellow Lt. Yellow [facility] Glucose Ql (U) >1,000 Abnormal Normal (<70) mg/dL [facility] Hemoglobin Ql (U) Negative Negative mg/dL [facility] Interpretation and review of laboratory results Abnormal [facility] Ketones (U) [Mass/Vol] Negative Negat abdulkadir mg/dL [facility] Leukocyte esterase Test strip Ql (U) Negative Negative Poornima/uL [facility] Nitrite Ql (U) Negative Negative [facility] th pH (U) 5.0 [pH] 5.0 - 8.0 pH [facility] Protein (U) [Mass/Vol] Negative Negat abdulkadir mg/dL [facility] Specific gravity (U) [Rel density] 1.017 1.005 - 1.030 [facility] Urobilinogen (U) [Mass/Vol] Normal Normal (0-1) mg/dL [facility] Vital signson 05-30-2024 Heart rate 105 /min bpm [facility] XR Chest Single viewon 05-30 FINDINGS AND [...] MD Electronically Signed Date/Time: 05/30/2024 9:11 AM [facility] Patient Name: JAMES REYES : 1955 Exam Date/Time: 05/30/2024 09:03 Procedure: XR CHEST 1 VIEW Ordering Provider: MAR GREGORY Reason For Exam: Dyspnea hypoxia CHEST CLINICAL INDICATION: Hypoxia TECHNIQUE: AP portable chest COMPARISON: 11/30/2023 [facility] Jimbo Voss MD - 05/30/2024 Patient Name: [...] MD Electronically Signed Date/Time: 05/30/2024 9:11 AM [facility] Radiology Study observation (narrative) [facility] XR Chest Single viewOrdered By: Jimbo Voss on 05-30-2024 [facility] US RETROPERITONEALon 025 US RETROPERITONEAL Normal [facility] US Retroperitoneumon 025 No significant sonographic abnormality of the kidneys. Report Dictated on Electronically Signed By: Marshall Gallegos MD Electronically Signed Date/Time: 05/23/2024 4:33 PM [facility] [employer] Patient Name: JAMES REYES : 1955 Exam Date/Time: 05/22/2024 12:25 Procedure: US RETROPERITONEAL [...] distended urinary bladder without obvious sonographic abnormality. [facility] Marshall Gallegos MD - 05/23/2024 Patient Name: JAMES REYES : 1955 Exam Date/Time: 05/22/2024 12:25 Procedure: US RETROPERITONEAL [...] Report Dictated on Electronically Signed By: Marshall Gallegos MD Electronically Signed Date/Time: 05/23/2024 4:33 PM EST [facility] US RetroperitoneumOrdered By : Marshall Gallegos on 05-23-2024 [facility] Work Phone: US Retroperitoneumon 025 Radiology Study observation (narrative) [facility] Diagnostic total prostate sp ecific antigen (PSA) measurementOrdered By: Chelle Troncoso on 05-14-2024 Prostate Specific Antigen Total 0.07 ng/mL 0.0-4.0 [facility] Comment on above: This test was perfor med using the TPSA assay method for the[facility] chemistry system. Values obtained with differentassay methods cannot be used interchangably.When changing PSA assays in the course of monitoring apatient, additional sequential testing should be carriedout to confirm baseline values. AMB POC URINALYSIS DIP STICK AUTO W/O MICROon 05-13-2024 Bilirubin, UA Negative [facility] Blood, UA Negative [facility] Glucose, UA 500 [facility] Ketones, UA (mg/dL) Negative Negative mg/dL [facility] Leukocytes, UA Negative [facility] Nitrite, UA Negative [facility] pH, UA 5.5 [facility] Protein, UA Negative [facility] Spec Grav, UA 1.015 [facility] Urob[facility], UA 0.2 [facility] Progress Noteon 05-13-2024 Progress [facility] Progress Note PVR: 122 mL [facility] Bilirubin directOrdered By: Chelle Troncoso on 04-01-2024 Bilirubin.direct [Mass/Vol] 0.08 mg/dL 0.00-0.30 [facility] Bilirubin, totalOrdered By: Chelle Troncoso on 04-01-2024 Bilirubin [Mass/Vol] 0.40 mg/dL 0.20-1.00 [facility] Comment on above: For patients on eltr ombopag therapy, use of Dimension [place] TBIL is not recommended. Blood urea nitrogen (BUN)/cr eatinine ratioOrdered By: Chelle Troncoso on 04-01-2024 Urea nitrogen/Creatinine [Mass ratio] 18.6 mg/mg 10-20 [facility] Carbon dioxide measurementOr dered By: Chelle Troncoso on 04-01-2024 CO2 [Moles/Vol] 24.0 mmol/L 21.0-32.0 [facility] Chloride measurementOrdered By: Chelle Troncoso on 04-01-2024 Chloride [Moles/Vol] 111 mmol/L High 98-107 [facility] Erythrocyte distribution wid th (RBC) [Ratio]Ordered By: Chelle Troncoso on 04-01-2024 Erythrocyte distribution width (RBC) [Entitic vol] 50.4 fL High 35.1-43.9 [facility] Erythrocyte distribution wid th ratioOrdered By: Chelle Troncoso on 04-01-2024 Erythrocyte distribution width (RBC) [Ratio] 14.2 % 11.6-14.6 [facility] Estimated glomerular filtrat ion rate (GFR) AmericanOrdered By: Chelle Troncoso on 04-01-2024 Estimated GFR (MDRD) Amer 79 mL/min >60 [facility] Comment on above: GFR Calc Glomerular filtration rate ( GFR) estimationOrdered By: Chelle Troncoso on 04-01-2024 Estimated GFR (MDRD) Non-Af Amer 65 mL/min >60 [facility] Comment on above: Non- GFR Calc Glucose measurementOrdered B y: Chelle Troncoso on 04-01-2024 Glucose [Mass/Vol] 205 mg/dL High 74-106 [facility] Comment on above: Glucose result great er than or equal to 200 mg/dLsuggests DIABETES MELLITUS per A.D.A. criteria. Hematocrit Auto (Bld) [Volum e fraction]Ordered By: Chelle Troncoso on 04-01-2024 Hematocrit (Bld) [Volume fraction] 34.2 % Low 40-54 [facility] Hemoglobin A1c percentageOrd ered By: Chelle Troncoso on 04-01-2024 HbA1c (Bld) [Mass fraction] 8.2 % High 3.8-5.6 [facility] Comment on above: Normal < 5.7 % Predi abetic 5.7 - 6.4 % Diabetic >or= 6.5 % Please note range changes. Hemoglobin measurementOrdere d By: Chelle Troncoso on 04-01-2024 Hemoglobin (Bld) [Mass/Vol] 10.4 g/dL Low 13.0-16.5 [facility] High density lipoprotein (HD L) measurementOrdered By: Chelle Troncoso on 04-01-2024 Cholesterol in HDL [Mass/Vol] 44 mg/dL >40 [facility] Comment on above: The drugs N-Acetylcy steine and Metamizole may falsely depress this assay. Reference Range HDL <40 mg/dL Low HDL Cholesterol HDL >or= 60 mg/dL High HDL Cholesterol Laboratory - Chemistry and C hemistry - challengeOrdered By: Chelle Troncoso on 04-01-2024 AST [Catalytic activity/Vol] 8 U/L Low 15-37 [facility] Low density lipoprotein (LDL ) cholesterol measurementOrdered By: Chelle Troncoso on 04-01-2024 Cholesterol in LDL [Mass/Vol] 29 mg/dL 0-130 [facility] MCV (mean corpuscular volume ) determinationOrdered By: Chelle Troncoso on 04-01-2024 MCV (RBC) [Entitic vol] 95.8 fL High 80-94 [facility] Mean corpuscular hemoglobin (MCH) determinationOrdered By: Chelle Troncoso on 04-01-2024 MCH (RBC) [Entitic mass] 29.1 pg 27.0-32.0 [facility] Mean corpuscular hemoglobin concentration (MCHC) determinationOrdered By: Chelle Troncoso on 04-01-2024 MCHC (RBC) [Mass/Vol] 30.4 g/dL Low 32-36 [facility] Mean platelet volume determi nationOrdered By: Chelle Troncoso on 04-01-2024 Platelet mean volume (Bld) [Entitic vol] 10.1 fL 6.2-12.0 [facility] Platelet countOrdered By: Magdalena Troncoso on 04-01-2024 Platelets (Bld) [#/Vol] 282 10*3/uL 150-450 [facility] Potassium measurementOrdered By: Chelle Troncoso on 04-01-2024 Potassium [Moles/Vol] 4.4 mmol/L 3.5-5.1 [facility] RBC Auto (Bld) [#/Vol]Ordere d By: Chelle Troncoso on 04-01-2024 RBC (Bld) [#/Vol] 3.57 10*6/uL Low 4.6-6.2 [facility] Serum anion gap measurementO rdered By: Chelle Troncoso on 04-01-2024 Anion gap [Moles/Vol] 5 mmol/L 5-15 [facility] Serum globulin measurementOr dered By: Chelle Troncoso on 04-01-2024 Globulin (S) [Mass/Vol] 3.0 g/dL 2.2-4.2 [facility] Serum or plasma alanine weller otransferase (ALT) measurementOrdered By: Chelle Troncoso on 04-01-2024 ALT [Catalytic activity/Vol] 15 U/L Low 16-61 [facility] Serum or plasma albumin william urement (mass/volume)Ordered By: Chelle Troncoso on 04-01-2024 Albumin [Mass/Vol] 2.8 g/dL Low 3.2-5.0 [facility] Serum or plasma alkaline maritza sphatase measurementOrdered By: Chelle Troncoso on 04-01-2024 ALP [Catalytic activity/Vol] 85 U/L 45-117 [facility] Serum or plasma calcium william urement (mass/volume)Ordered By: Chelle Troncoso on 04-01-2024 Calcium [Mass/Vol] 8.6 mg/dL 8.5-10.1 [facility] Serum or plasma cholesterol measurement (mass/volume)Ordered By: Chelle Troncoso on 04-01-2024 Cholesterol [Mass/Vol] 92 mg/dL <200 [facility] Comment on above: <200 mg/dL Desirable 200-240 mg/dL Borderline >240 mg/dL High Risk Serum or plasma creatinine m easurement (mass/volume)Ordered By: Chelle Troncoso on 04-01-2024 Creatinine [Mass/Vol] 1.18 mg/dL 0.70-1.30 [facility] Comment on above: The validity of the calculated GFR & GFRAA in patients over 70 years has not been determined. Clinical correlation is essential. Serum or plasma urea nitroge n measurement (mass/volume)Ordered By: Chelle Troncoso on 04-01-2024 Urea nitrogen [Mass/Vol] 22 mg/dL High 7-18 [facility] Sodium levelOrdered By: Lyle Troncoso on 04-01-2024 Sodium [Moles/Vol] 140 mmol/L 136-145 [facility] TSH QnOrdered By: Chelle roman on 04-01-2024 Thyroid Stimulating Hormone (TSH) 2.010 uIU/mL 0.358-3.740 [facility] Total proteinOrdered By: Costa Troncoso on 04-01-2024 Protein [Mass/Vol] 5.8 g/dL Low 6.4-8.2 [facility] Triglycerides measurementOrd ered By: Chelle Troncoso on 04-01-2024 Triglyceride [Mass/Vol] 97 mg/dL <199 [facility] Comment on above: The drugs N-Acetylcy steine and Metamizole may falsely depress this assay.Serum Triglycerides Reference Interval Normal <150 mg/dL Borderline high 150 - 199 mg/dL High 200 - 499 mg/dL Very High > or = 500 mg/dL Very low density lipoprotein (VLDL) cholesterol measurementOrdered By: Chelle Troncoso on 04-01-2024 VLDL Cholesterol 19 mg/dL 5-40 [facility] White blood cell (WBC) count Ordered By: Chelle Troncoso on 04-01-2024 WBC (Bld) [#/Vol] 6.3 10*3/uL 4.4-11.0 [facility] Blood urea nitrogen (BUN)/cr eatinine ratioOrdered By: Chelle Troncoso on 03-26-2024 Urea nitrogen/Creatinine [Mass ratio] 21.0 mg/mg High 10-20 [facility] Carbon dioxide measurementOr dered By: Chelle Troncoso on 03-26-2024 CO2 [Moles/Vol] 25.0 mmol/L 21.0-32.0 [facility] Chloride measurementOrdered By: Chelle Troncoso on 03-26-2024 Chloride [Moles/Vol] 109 mmol/L High 98-107 [facility] Erythrocyte distribution wid th (RBC) [Ratio]Ordered By: Chelle Troncoso on 03-26-2024 Erythrocyte distribution width (RBC) [Entitic vol] 51.4 fL High 35.1-43.9 [facility] Erythrocyte distribution wid th ratioOrdered By: Chelle Troncoso on 03-26-2024 Erythrocyte distribution width (RBC) [Ratio] 14.4 % 11.6-14.6 [facility] Estimated glomerular filtrat ion rate (GFR) AmericanOrdered By: Chelle Troncoso on 03-26-2024 Estimated GFR (MDRD) Amer 78 mL/min >60 [facility] Comment on above: GFR Calc Glomerular filtration rate ( GFR) estimationOrdered By: Chelle Troncoso on 03-26-2024 Estimated GFR (MDRD) Non-Af Amer 65 mL/min >60 [facility] Comment on above: Non- GFR Calc Glucose measurementOrdered B y: Chelle Troncoso on 03-26-2024 Glucose [Mass/Vol] 255 mg/dL High 74-106 [facility] Comment on above: Glucose result great er than or equal to 200 mg/dLsuggests DIABETES MELLITUS per A.D.A. criteria. Hematocrit Auto (Bld) [Volum e fraction]Ordered By: Chelle Troncoso on 03-26-2024 Hematocrit (Bld) [Volume fraction] 35.5 % Low 40-54 [facility] Hemoglobin measurementOrdere d By: Chelle Troncoso on 03-26-2024 Hemoglobin (Bld) [Mass/Vol] 10.7 g/dL Low 13.0-16.5 [facility] MCV (mean corpuscular volume ) determinationOrdered By: Chelle Troncoso on 03-26-2024 MCV (RBC) [Entitic vol] 97.0 fL High 80-94 [facility] Mean corpuscular hemoglobin (MCH) determinationOrdered By: Chelle Troncoso on 03-26-2024 MCH (RBC) [Entitic mass] 29.2 pg 27.0-32.0 [facility] Mean corpuscular hemoglobin concentration (MCHC) determinationOrdered By: Chelle Troncoso on 03-26-2024 MCHC (RBC) [Mass/Vol] 30.1 g/dL Low 32-36 [facility] Mean platelet volume determi nationOrdered By: Chelle Troncoso on 03-26-2024 Platelet mean volume (Bld) [Entitic vol] 9.9 fL 6.2-12.0 [facility] Platelet countOrdered By: Magdalena Troncoso on 03-26-2024 Platelets (Bld) [#/Vol] 266 10*3/uL 150-450 [facility] Potassium measurementOrdered By: Chelle Troncoso on 03-26-2024 Potassium [Moles/Vol] 4.4 mmol/L 3.5-5.1 [facility] RBC Auto (Bld) [#/Vol]Ordere d By: Chelle Troncoso on 03-26-2024 RBC (Bld) [#/Vol] 3.66 10*6/uL Low 4.6-6.2 [facility] Serum anion gap measurementO rdered By: Chelle Troncoso on 03-26-2024 Anion gap [Moles/Vol] 7 mmol/L 5-15 [facility] Serum or plasma calcium william urement (mass/volume)Ordered By: Chelle Troncoso on 03-26-2024 Calcium [Mass/Vol] 9.2 mg/dL 8.5-10.1 [facility] Serum or plasma creatinine m easurement (mass/volume)Ordered By: Chelle Troncoso on 03-26-2024 Creatinine [Mass/Vol] 1.19 mg/dL 0.70-1.30 [facility] Comment on above: The validity of the calculated GFR & GFRAA in patients over 70 years has not been determined. Clinical correlation is essential. Serum or plasma urea nitroge n measurement (mass/volume)Ordered By: Chelle Troncoso on 03-26-2024 Urea nitrogen [Mass/Vol] 25 mg/dL High 7-18 [facility] Sodium levelOrdered By: Lyle Troncoso on 03-26-2024 Sodium [Moles/Vol] 140 mmol/L 136-145 [facility] White blood cell (WBC) count Ordered By: Chelle Troncoso on 03-26-2024 WBC (Bld) [#/Vol] 11.2 10*3/uL High 4.4-11.0 [facility] 36on 03-15-2024 36 Normal [facility] 36 Normal [facility] 36 Aydee from [employer] calling pt has had a 23# weight gain in 1 week. Call [phone] ask for the 300 [employer] nurse. Normal [facility] 37on 03-08-2024 37 Normal [facility] BASIC METABOLIC PANELon 02-16 Anion gap [Moles/Vol] 11 mmol/L Normal 3-13 [facility] Comment on above: Performed By: #### L [id number], LAB15 ####Academic Intern: SWATI RATLIFF ([id number])[facility])[address] [place] [address] Calcium [Mass/Vol] 9.1 mg/dL Normal 8.4-10.4 [facility] Comment on above: Performed By: #### L [id number], LAB15 ####Academic Intern: SWATI RATLIFF ([id number])[facility])[address] [place] [address] Chloride [Moles/Vol] 105 mmol/L Normal 98-107 [facility] Comment on above: Performed By: #### L [id number], LAB15 ####Academic Intern: SWATI RATLIFF ([id number])[facility] [place] [address] CO2 [Moles/Vol] 19 mmol/L Low 22-30 [facility] Comment on above: Performed By: #### L AB103, LAB15 ####Academic Intern: SWATI RATLIFF ([id number])[facility])[address] [place] [address] Creatinine [Mass/Vol] 1.01 mg/dL Normal 0.66-1.25 [facility] Comment on above: Performed By: #### L [id number], LAB15 ####Academic Intern: SWATI RATLIFF ([id number])[facility])[address] [place] [address] [place] GLOMERULAR FILTRATION RATE ML/MIN/1.73 SQ M.PREDICTED 81.5 mL/min/1.73m*2 Normal >60.0 [facility] Comment on above: Result Comment: Calc ulation based on the Chronic Kidney Disease Epidemiology Collaboration (CKD-EPI) equation refit without adjustment for race Performed By: #### L AB103, LAB15 ####Academic Intern: SWATI RATLIFF ([id number])[facility])[address] [place] [address] [place] Glucose [Mass/Vol] 265 mg/dL High 70-100 [facility] Comment on above: Performed By: #### L AB103, LAB15 ####Academic Intern: SWATI RATLIFF ([id number])[facility])[address] [place] [address] [place] Potassium [Moles/Vol] 4.0 mmol/L Normal 3.5-5.1 [facility] Comment on above: Performed By: #### L [id number], LAB15 ####Academic Intern: SWATI RATLIFF ([id number])[facility])[address] [place] [address] [place] Sodium [Moles/Vol] 135 mmol/L Normal 135-145 [facility] Comment on above: Performed By: #### L AB103, LAB15 ####Academic Intern: SWATI RATLIFF ([id number])[facility])[address] [place] [address] [place] Urea nitrogen [Mass/Vol] 22 mg/dL High 9-20 [facility] Comment on above: Performed By: #### L AB103, LAB15 ####Academic Intern: SWATI RATLIFF ([id number])[facility] [place] [address] Basic metabolic 1998 panelon 03-08-2024 Anion gap [Moles/Vol] 11 mmol/L 3 - 13 mmol/L [facility] Calcium [Mass/Vol] 9.1 mg/dL 8.4 - 10. 4 mg/dL [facility] Chloride [Moles/Vol] 105 mmol/L 98 - 10 7 mmol/L [facility] CO2 [Moles/Vol] 19 mmol/L Low 22 - 30 mmol/L [facility] Creatinine [Mass/Vol] 1.01 mg/dL 0.66 - 1.25 mg/dL [facility] GFR/1.73 sq M.predicted (S/P/Bld) [Vol rate/Area] 81.5 mL/min - PINF [facility] Comment on above: Calculation based on the Chronic Kidney Disease Epidemiology Collaboration (CKD-EPI) equation refit without adjustment for race Glucose [Mass/Vol] 265 mg/dL High 70 - 100 mg/dL [facility] Interpretation and review of laboratory results Abnormal [facility] Potassium [Moles/Vol] 4 mmol/L 3.5 - 5.1 mmol/L [facility] Sodium [Moles/Vol] 135 mmol/L 135 - 145 mmol/L [facility] Urea nitrogen [Mass/Vol] 22 mg/dL High 9 - 20 mg/dL [facility] CBC W Auto Differential pane l (Bld)Ordered By: Kelsi Amaro on 03-08-2024 Basophils (Bld) [#/Vol] 0 10*3/uL 0.0 - 0.2 10*3/uL [facility] Basophils/100 WBC (Bld) 0.5 % 0.0 - 2.0 % [facility] Eosinophils (Bld) [#/Vol] 0.2 10*3/uL 0.0 - 0.5 10*3/uL [facility] Eosinophils/100 WBC (Bld) 2.8 % 0.0 - 6.0 % [facility] Erythrocyte distribution width (RBC) [Ratio] 14.6 % 11.5 - 15.0 % [facility] Hematocrit (Bld) [Volume fraction] 36.8 % Low 40.0 - 52.0 % [facility] Hemoglobin (Bld) [Mass/Vol] 11.4 g/dL Low 13.0 - 18.0 g/dL [facility] Immature granulocytes (Bld) [#/Vol] 0 10*3/uL NINF - 0.1 10*3/uL [facility] Immature granulocytes/100 WBC (Bld) 0.3 % 0.0 - 2.0 % [facility] Interpretation and review of laboratory results Abnormal [facility] Lymphocytes (Bld) [#/Vol] 0.8 10*3/uL Low 1.0 - 4.3 10*3/uL [facility] Lymphocytes/100 WBC (Bld) 12.3 % Low 15.0 - 45.0 % [facility] MCH (RBC) [Entitic mass] 29.7 pg 26. 0 - 34.0 pg [facility] MCHC (RBC) [Mass/Vol] 31 % 30.5 - 36.0 % [facility] MCV (RBC) [Entitic vol] 95.8 fL 77.0 - 99.0 fL [facility] Monocytes (Bld) [#/Vol] 0.6 10*3/uL 0.0 - 0.9 10*3/uL [facility] Monocytes/100 WBC (Bld) 9.4 % 5.0 - 13.0 % [facility] Neutrophils (Bld) [#/Vol] 4.7 10*3/uL 1.8 - 7.5 10*3/uL [facility] Neutrophils/100 WBC (Bld) 74.7 % 38.0 - 82.0 % [facility] Nucleated RBC/100 WBC (Bld) [Ratio] 0 % [facility] Platelet mean volume (Bld) [Entitic vol] 10.2 fL 9.0 - 12.7 fL [facility] Platelets (Bld) [#/Vol] 248 10*3/uL 140 - 440 10*3/uL [facility] RBC (Bld) [#/Vol] 3.84 10*6/uL Low 4.40 - 5.9 0 10*6/uL [facility] WBC (Bld) [#/Vol] 6.4 10*3/uL 3.6 - 10.7 10*3/uL [facility] CBC WITH AUTO DIFFERENTIALon 03-08-2024 Basophils (Bld) [#/Vol] 0.0 10*3/uL Normal 0.0-0.2 [facility] Comment on above: Performed By: #### L [id number] ####Academic Intern: SWATI RATLIFF ([id number])[facility] [place] [address] Basophils/100 WBC (Bld) 0.5 % Normal 0.0-2.0 [facility] Comment on above: Performed By: #### L [id number] ####Academic Intern: SWATI RATLIFF ([id number])[facility] [place] [address] Eosinophils (Bld) [#/Vol] 0.2 10*3/uL Normal 0.0-0.5 [facility] Comment on above: Performed By: #### L [id number] ####Academic Intern: SWATI RATLIFF ([id number])[facility] [place] [address] Eosinophils/100 WBC (Bld) 2.8 % Normal 0.0-6.0 [facility] Comment on above: Performed By: #### L [id number] ####Academic Intern: SWATI RATLIFF ([id number])[facility] [place] [address] Erythrocyte distribution width (RBC) [Ratio] 14.6 % Normal 11.5-15.0 [facility] Comment on above: Performed By: #### L [id number] ####Academic Intern: SWATI RATLIFF ([id number])[facility] [place] [address] Hematocrit (Bld) [Volume fraction] 36.8 % Low 40.0-52.0 [facility] Comment on above: Performed By: #### L [id number] ####Academic Intern: SWATI RATLIFF ([id number])[facility] [place] [address] Hemoglobin (Bld) [Mass/Vol] 11.4 g/dL Low 13.0-18.0 [facility] Comment on above: Performed By: #### L [id number] ####Academic Intern: SWATI RATLIFF ([id number])[facility] [place] [address] IMMATURE GRANS % 0.3 % Normal 0.0-2.0 [facility] Comment on above: Performed By: #### L [id number] ####Academic Intern: SWATI RTALIFF ([id number])[facility] [place] [address] IMMATURE GRANS ABSOLUTE 0.0 10*3/uL Normal <0.1 [facility] Comment on above: Performed By: #### L [id number] ####Academic Intern: SWATI RATLIFF ([id number])[address] Lymphocytes (Bld) [#/Vol] 0.8 10*3/uL Low 1.0-4.3 [facility] Comment on above: Performed By: #### L [id number] ####Academic Intern: SWATI RATLIFF ([id number])[facility] [place] [address] Lymphocytes/100 WBC (Bld) 12.3 % Low 15.0-45.0 [facility] Comment on above: Performed By: #### L [id number] ####Academic Intern: SWATI RATLIFF ([id number])[facility] [place] [address] MCH (RBC) [Entitic mass] 29.7 pg Normal 26.0-34.0 [facility] Comment on above: Performed By: #### L [id number] ####Academic Intern: SWATI RATLIFF ([id number])[address] MCHC 31.0 % Normal 30.5-36.0 [facility] Comment on above: Performed By: #### L [id number] ####Academic Intern: SWATI RATLIFF ([id number])[facility] [place] [address] MCV (RBC) [Entitic vol] 95.8 fL Normal 77.0-99.0 [facility] Comment on above: Performed By: #### L [id number] ####Academic Intern: SWATI RATLIFF ([id number])[facility] [place] [address] Monocytes (Bld) [#/Vol] 0.6 10*3/uL Normal 0.0-0.9 [facility] Comment on above: Performed By: #### L [id number] ####Academic Intern: SWATI RATLIFF ([id number])[facility] [place] [address] Monocytes/100 WBC (Bld) 9.4 % Normal 5.0-13.0 [facility] Comment on above: Performed By: #### L [id number] ####Academic Intern: SWATI RATLIFF ([id number])[facility] [place] [address] NEUTROPHILS ABSOLUTE 4.7 10*3/uL Normal 1.8-7.5 [facility] Comment on above: Performed By: #### L [id number] ####Academic Intern: SWATI RATLIFF ([id number])[facility] [place] [address] Neutrophils/100 WBC (Bld) 74.7 % Normal 38.0-82.0 [facility] Comment on above: Performed By: #### L [id number] ####Academic Intern: SWATI RATLIFF ([id number])[facility])[address] [place] [address] [place] NRBC 0.0 /100 WBCs Normal 0.0-2.0 [facility] Comment on above: Performed By: #### L [id number] ####Academic Intern: SWATI RATLIFF ([id number])[facility] [place] [address] Platelet mean volume (Bld) [Entitic vol] 10.2 fL Normal 9.0-12.7 [facility] Comment on above: Performed By: #### L [id number] ####Academic Intern: SWATI RATLIFF ([id number])[facility] [place] [address] Platelets (Bld) [#/Vol] 248 10*3/uL Normal 140-440 [facility] Comment on above: Performed By: #### L [id number] ####Academic Intern: SWATI RATLIFF ([id number])[facility] [place] [address] RBC (Bld) [#/Vol] 3.84 10*6/uL Low 4.40-5.90 [facility] Comment on above: Performed By: #### L [id number] ####Academic Intern: SWATI RATLIFF ([id number])[facility] [place] [address] WBC (Bld) [#/Vol] 6.4 10*3/uL Normal 3.6-10.7 [facility] Comment on above: Performed By: #### L [id number] ####Academic Intern: SWATI RATLIFF ([id number])[facility] [place] [address] Laboratory - Chemistry and C hemistry - challengeon 03-08-2024 Magnesium [Mass/Vol] 2.1 mg/dL 1.6 - 2 .3 mg/dL [facility] MAGNESIUMon 03-08-2024 Magnesium [Mass/Vol] 2.1 mg/dL Normal 1.6-2.3 [facility] Comment on above: Performed By: #### L [id number], [id number] ####Academic Intern: SWATI RATLIFF ([id number])[facility])[address] [place] [address] Magnesium [Mass/Vol]on 03-08 Interpretation and review of laboratory results Normal [facility] No Panel Informationon 03-08 [facility] Progress Noteon 03-08-2024 Progress Note Normal [facility] 12-07-2023 [facility] Patient Choice Patient Name: JAMES [facility]YES Date [facility] : 1955 [facility] Discharge med list transmitted to [facility] via [facility]port per TCC request. Normal [facility] Normal [facility] Normal [facility] Normal [facility] Normal [facility] CBC W Auto Differential pane l (Bld)on 12-05-2023 Basophils (Bld) [#/Vol] 0.0 10*3/uL 0.0 - 0.2 10*3/uL [facility] Basophils/100 WBC (Bld) 0.7 % 0.0 - 2.0 % [facility] Eosinophils (Bld) [#/Vol] 0.2 10*3/uL 0.0 - 0.5 10*3/uL [facility] Eosinophils/100 WBC (Bld) 4.3 % 0.0 - 6.0 % [facility] [employer] Erythrocyte distribution width (RBC) [Ratio] 15.3 % High 11.5 - 15.0 % [facility] Hematocrit (Bld) [Volume fraction] 33.6 % Low 40.0 - 52.0 % [facility] [employer] Hemoglobin (Bld) [Mass/Vol] 10.5 g/dL Low 13.0 - 18.0 g/dL [facility] [employer] Immature granulocytes (Bld) [#/Vol] 0.0 10*3/uL NINF - 0.1 10*3/uL [facility] [employer] Immature granulocytes/100 WBC (Bld) 0.2 % 0.0 - 2.0 % [facility] Interpretation and review of laboratory results Abnormal [facility] [employer] Lymphocytes (Bld) [#/Vol] 0.9 10*3/uL Low 1.0 - 4.3 10*3/uL [facility] Lymphocytes/100 WBC (Bld) 19.5 % 15.0 - 45.0 % [facility] [employer] MCH (RBC) [Entitic mass] 30.1 pg 26. 0 - 34.0 pg [facility] MCHC (RBC) [Mass/Vol] 31.3 % 30.5 - 36.0 % [facility] MCV (RBC) [Entitic vol] 96.3 fL 77.0 - 99.0 fL [facility] Monocytes (Bld) [#/Vol] 0.5 10*3/uL 0.0 - 0.9 10*3/uL [facility] Monocytes/100 WBC (Bld) 12.1 % 5.0 - 13.0 % [facility] Neutrophils (Bld) [#/Vol] 2.8 10*3/uL 1.8 - 7.5 10*3/uL [facility] Neutrophils/100 WBC (Bld) 63.2 % 38.0 - 82.0 % [facility] Nucleated RBC/100 WBC (Bld) [Ratio] 0.0 % [facility] Platelet mean volume (Bld) [Entitic vol] 10.4 fL 9.0 - 12.7 fL [facility] Platelets (Bld) [#/Vol] 161 10*3/uL 140 - 440 10*3/uL [facility] RBC (Bld) [#/Vol] 3.49 10*6/uL Low 4.40 - 5.9 0 10*6/uL [facility] WBC (Bld) [#/Vol] 4.5 10*3/uL 3.6 - 10.7 10*3/uL [facility] CBC WITH AUTO DIFFERENTIALon 12-05-2023 Basophils (Bld) [#/Vol] 0.0 10*3/uL Normal 0.0-0.2 [facility] Comment on above: Performed By: #### L [id number] ####Academic Intern: SWATI RATLIFF ([id number])[facility] [place] [address] Basophils/100 WBC (Bld) 0.7 % Normal 0.0-2.0 [facility] Comment on above: Performed By: #### L [id number] ####Academic Intern: SWATI RATLIFF ([id number])[facility] [place] [address] Eosinophils (Bld) [#/Vol] 0.2 10*3/uL Normal 0.0-0.5 [facility] Comment on above: Performed By: #### L [id number] ####Academic Intern: SWATI RATLIFF ([id number])[facility] [place] [address] Eosinophils/100 WBC (Bld) 4.3 % Normal 0.0-6.0 [facility] Comment on above: Performed By: #### L [id number] ####Academic Intern: SWATI RATLIFF ([id number])[facility])[address] [place] [address] Erythrocyte distribution width (RBC) [Ratio] 15.3 % High 11.5-15.0 [facility] Comment on above: Performed By: #### L [id number] ####Academic Intern: SWATI RATLIFF ([id number])[address] Hematocrit (Bld) [Volume fraction] 33.6 % Low 40.0-52.0 [facility] Comment on above: Performed By: #### L [id number] ####Academic Intern: SWATI RATLIFF ([id number])[facility])[address] [place] [address] Hemoglobin (Bld) [Mass/Vol] 10.5 g/dL Low 13.0-18.0 [facility] Comment on above: Performed By: #### L [id number] ####Academic Intern: SWATI RATLIFF ([id number])[facility])[address] [place] [address] IMMATURE GRANS % 0.2 % Normal 0.0-2.0 [facility] Comment on above: Performed By: #### L [id number] ####Academic Intern: SWATI RATLIFF ([id number])[facility] [place] [address] IMMATURE GRANS ABSOLUTE 0.0 10*3/uL Normal <0.1 [facility] Comment on above: Performed By: #### L [id number] ####Academic Intern: SWATI RATLIFF ([id number])[facility])[address] [place] [address] Lymphocytes (Bld) [#/Vol] 0.9 10*3/uL Low 1.0-4.3 [facility] Comment on above: Performed By: #### L [id number] ####Academic Intern: SWATI RATLIFF ([id number])[facility])[address] [place] [address] Lymphocytes/100 WBC (Bld) 19.5 % Normal 15.0-45.0 [facility] Comment on above: Performed By: #### L [id number] ####Academic Intern: SWATI RATLIFF ([id number])[facility])[address] [place] [address] MCH (RBC) [Entitic mass] 30.1 pg Normal 26.0-34.0 [facility] Comment on above: Performed By: #### L [id number] ####Academic Intern: SWATI RATLIFF ([id number])[facility])[address] [place] [address] MCHC 31.3 % Normal 30.5-36.0 [facility] Comment on above: Performed By: #### L [id number] ####Academic Intern: SWATI RATLIFF ([id number])[facility])[address] [place] [address] MCV (RBC) [Entitic vol] 96.3 fL Normal 77.0-99.0 [facility] Comment on above: Performed By: #### L [id number] ####Academic Intern: SWATI RATLIFF ([id number])[facility])[address] [place] [address] Monocytes (Bld) [#/Vol] 0.5 10*3/uL Normal 0.0-0.9 [facility] Comment on above: Performed By: #### L [id number] ####Academic Intern: SWATI RATLIFF ([id number])[facility] [place] [address] Monocytes/100 WBC (Bld) 12.1 % Normal 5.0-13.0 [facility] Comment on above: Performed By: #### L [id number] ####Academic Intern: SWATI RATLIFF ([id number])[facility])[address] [place] [address] NEUTROPHILS ABSOLUTE 2.8 10*3/uL Normal 1.8-7.5 [facility] Comment on above: Performed By: #### L [id number] ####Academic Intern: SWATI RATLIFF ([id number])[facility])[address] [place] [address] Neutrophils/100 WBC (Bld) 63.2 % Normal 38.0-82.0 [facility] Comment on above: Performed By: #### L [id number] ####Academic Intern: SWATI RATLIFF ([id number])[facility])[address] [place] [address] NRBC 0.0 /100 WBCs Normal 0.0-2.0 [facility] Comment on above: Performed By: #### L [id number] ####Academic Intern: SWATI RATLIFF ([id number])[facility])[address] [place] [address] Platelet mean volume (Bld) [Entitic vol] 10.4 fL Normal 9.0-12.7 [facility] Comment on above: Performed By: #### L [id number] ####Academic Intern: SWATI RATLIFF ([id number])[facility])[address] [place] [address] [place] Platelets (Bld) [#/Vol] 161 10*3/uL Normal 140-440 [facility] Comment on above: Performed By: #### L [id number] ####Academic Intern: SWATI RATLIFF ([id number])[facility])[address] [place] [address] [place] RBC (Bld) [#/Vol] 3.49 10*6/uL Low 4.40-5.90 [facility] Comment on above: Performed By: #### L [id number] ####Academic Intern: SWATI RATLIFF ([id number])[facility])[address] [place] [address] WBC (Bld) [#/Vol] 4.5 10*3/uL Normal 3.6-10.7 [facility] Comment on above: Performed By: #### L [id number] ####Academic Intern: SWATI RATLIFF ([id number])[facility] [place] [address] COMPREHENSIVE METABOLIC PANE [employer] 12-05-2023 Albumin [Mass/Vol] 3.0 g/dL Low 3.5-5.0 [facility] Comment on above: Performed By: #### L [id number] ####Academic Intern: SWATI RATLIFF ([id number])[facility] [place] [address] ALP [Catalytic activity/Vol] 73 U/L Normal 38-126 [facility] Comment on above: Performed By: #### L [id number] ####Academic Intern: SWATI RATLIFF ([id number])[facility] [place] [address] ALT [Catalytic activity/Vol] 11 U/L Normal 0-49 [facility] Comment on above: Performed By: #### L [id number] ####Academic Intern: SWATI RATLIFF ([id number])[facility] [place] [address] Anion gap [Moles/Vol] 6 mmol/L Normal 3-13 [facility] Comment on above: Performed By: #### L [id number] ####Academic Intern: SWATI RATLIFF ([id number])[facility] [place] [address] AST [Catalytic activity/Vol] 14 U/L Low 15-46 [facility] Comment on above: Performed By: #### L [id number] ####Academic Intern: SWATI RATLIFF ([id number])[facility] [place] [address] Bilirubin [Mass/Vol] 0.3 mg/dL Normal 0.2-1.3 [facility] Comment on above: Performed By: #### L [id number] ####Academic Intern: SWATI RATLIFF ([id number])[facility] [place] [address] Calcium [Mass/Vol] 8.6 mg/dL Normal 8.4-10.4 [facility] Comment on above: Performed By: #### L [id number] ####Academic Intern: SWATI RATLIFF ([id number])[facility] [place] [address] Chloride [Moles/Vol] 112 mmol/L High 98-107 [facility] Comment on above: Performed By: #### L [id number] ####Academic Intern: SWATI RATLIFF ([id number])[facility] [place] [address] CO2 [Moles/Vol] 20 mmol/L Low 22-30 [facility] Comment on above: Performed By: #### L [id number] ####Academic Intern: SWATI RATLIFF ([id number])[facility] [place] [address] Creatinine [Mass/Vol] 0.86 mg/dL Normal 0.66-1.25 [facility] Comment on above: Performed By: #### L [id number] ####Academic Intern: SWATI RATLIFF ([id number])[facility] [place] [address] GLOMERULAR FILTRATION RATE ML/MIN/1.73 SQ M.PREDICTED >90.0 Normal >60.0 [facility] Comment on above: Result Comment: Calc ulation based on the Chronic Kidney Disease Epidemiology Collaboration (CKD-EPI) equation refit without adjustment for race Performed By: #### L [id number] ####Academic Intern: SWATI RATLIFF ([id number])[facility] [place] [address] Glucose [Mass/Vol] 154 mg/dL High 70-100 [facility] Comment on above: Performed By: #### L [id number] ####Academic Intern: SWATI RATLIFF ([id number])[facility] [place] [address] Potassium [Moles/Vol] 4.1 mmol/L Normal 3.5-5.1 [facility] Comment on above: Performed By: #### L [id number] ####Academic Intern: SWATI RATLIFF ([id number])[facility] [place] [address] Protein [Mass/Vol] 5.4 g/dL Low 6.3-8.2 [facility] Comment on above: Performed By: #### L [id number] ####Academic Intern: SWATI RATLIFF ([id number])[facility] [place] [address] Sodium [Moles/Vol] 138 mmol/L Normal 135-145 [facility] Comment on above: Performed By: #### L [id number] ####Academic Intern: SWATI RATLIFF ([id number])[facility] [place] [address] Urea nitrogen [Mass/Vol] 16 mg/dL Normal 9-20 [facility] Comment on above: Performed By: #### L [id number] ####Academic Intern: SWATI RATLIFF ([phone])[facility])[address] [place] [address] Comprehensive metabolic 1998 panelon 12-05-2023 Albumin [Mass/Vol] 3.0 g/dL Low 3.5 - 5.0 g/dL [facility] ALP [Catalytic activity/Vol] 73 U/L 38 - 126 U/L [facility] ALT [Catalytic activity/Vol] 11 U/L 0 - 49 U/L [facility] Anion gap [Moles/Vol] 6 mmol/L 3 - 13 mmol/L [facility] AST [Catalytic activity/Vol] 14 U/L Low 15 - 46 U/L [facility] Bilirubin [Mass/Vol] 0.3 mg/dL 0.2 - 1 .3 mg/dL [facility] Calcium [Mass/Vol] 8.6 mg/dL 8.4 - 10. 4 mg/dL [facility] Chloride [Moles/Vol] 112 mmol/L High 98 - 10 7 mmol/L [facility] CO2 [Moles/Vol] 20 mmol/L Low 22 - 30 mmol/L [facility] Creatinine [Mass/Vol] 0.86 mg/dL 0.66 - 1.25 mg/dL [facility] GFR/1.73 sq M.predicted (S/P/Bld) [Vol rate/Area] - PINF [facility] Comment on above: Calculation based on the Chronic Kidney Disease Epidemiology Collaboration (CKD-EPI) equation refit without adjustment for race Glucose [Mass/Vol] 154 mg/dL High 70 - 100 mg/dL [facility] Interpretation and review of laboratory results Abnormal [facility] Potassium [Moles/Vol] 4.1 mmol/L 3.5 - 5.1 mmol/L [facility] Protein [Mass/Vol] 5.4 g/dL Low 6.3 - 8.2 g/dL [facility] Sodium [Moles/Vol] 138 mmol/L 135 - 145 mmol/L [facility] Urea nitrogen [Mass/Vol] 16 mg/dL 9 - 20 mg/dL [facility] IDNon 12-05-2023 IDN Normal [facility] Laboratory - Chemistry and C hemistry - challengeon 12-05-2023 Glucose [Mass/Vol] 241 mg/dL High 70 - 100 mg/dL [facility] Glucose [Mass/Vol] 93 mg/dL 70 - 100 mg/dL [facility] No Panel Informationon 12-04 Interpretation and review of laboratory results Abnormal [facility]: [facility], [address] [place] [address] CLIA ID: [id number] [facility] Interpretation and review of laboratory results Normal [facility] Performed by: [facility], [address] [place] [address] CLIA ID: [id number] [facility] Nursing Noteon 12-05-2023 Nursing Note Normal [facility] Nursing Note Report called to [facility] Normal [facility] Nursing Note Patient is making inappropriate comments to nursing staff, after having a male nurse assigned he requested a new female nurse because he was not pretty. Patient was reminded that this is a professional environment and this behavior is not appropriate. [facility] Progress Noteon 12-05-2023 Progress Note PHYSICAL THERAPY [facility] Name/MRN: James Reyes ([id number]) Date: 12/05/2023 Attempted treatment at 1201, pt sitting EOB, stating that he is going to [facility] later today, politely declining therapy at this time. Benjie Torres, PT Normal [facility] CARECOORDon 12-04-2023 CARECOORD Reviewed with [facility]. Completed PAS in HENS, will submit for LOC once CRUZ completed. [facility] CARECOORD [facility] CBC W Auto Differential pane l (Bld)Ordered By: Edie Askew on 12-04-2023 Basophils (Bld) [#/Vol] 0.0 10*3/uL 0.0 - 0.2 10*3/uL [facility] [employer] Basophils/100 WBC (Bld) 0.5 % 0.0 - 2.0 % [facility] [employer] Eosinophils (Bld) [#/Vol] 0.2 10*3/uL 0.0 - 0.5 10*3/uL [facility] Eosinophils/100 WBC (Bld) 4.7 % 0.0 - 6.0 % [facility] [employer] Erythrocyte distribution width (RBC) [Ratio] 15.5 % High 11.5 - 15.0 % [facility] [employer] Hematocrit (Bld) [Volume fraction] 33.3 % Low 40.0 - 52.0 % [facility] [employer] Hemoglobin (Bld) [Mass/Vol] 10.2 g/dL Low 13.0 - 18.0 g/dL [facility] [employer] Immature granulocytes (Bld) [#/Vol] 0.0 10*3/uL NINF - 0.1 10*3/uL [facility] [employer] Immature granulocytes/100 WBC (Bld) 0.0 % 0.0 - 2.0 % [facility] [employer] Interpretation and review of laboratory results Abnormal [facility] Lymphocytes (Bld) [#/Vol] 0.8 10*3/uL Low 1.0 - 4.3 10*3/uL [facility] [employer] Lymphocytes/100 WBC (Bld) 20.6 % 15.0 - 45.0 % [facility] [employer] MCH (RBC) [Entitic mass] 29.7 pg 26. 0 - 34.0 pg [facility] [employer] MCHC (RBC) [Mass/Vol] 30.6 % 30.5 - 36.0 % [facility] [employer] MCV (RBC) [Entitic vol] 97.1 fL 77.0 - 99.0 fL [facility] [employer] Monocytes (Bld) [#/Vol] 0.5 10*3/uL 0.0 - 0.9 10*3/uL [facility] [employer] Monocytes/100 WBC (Bld) 11.8 % 5.0 - 13.0 % [facility] [employer] Neutrophils (Bld) [#/Vol] 2.5 10*3/uL 1.8 - 7.5 10*3/uL [facility] [employer] Neutrophils/100 WBC (Bld) 62.4 % 38.0 - 82.0 % [facility] [employer] Nucleated RBC/100 WBC (Bld) [Ratio] 0.0 % [facility] [employer] Platelet mean volume (Bld) [Entitic vol] 10.7 fL 9.0 - 12.7 fL [facility] [employer] Platelets (Bld) [#/Vol] 167 10*3/uL 140 - 440 10*3/uL [facility] RBC (Bld) [#/Vol] 3.43 10*6/uL Low 4.40 - 5.9 0 10*6/uL [facility] WBC (Bld) [#/Vol] 4.1 10*3/uL 3.6 - 10.7 10*3/uL [facility] CBC WITH AUTO DIFFERENTIALon 12-04-2023 Basophils (Bld) [#/Vol] 0.0 10*3/uL Normal 0.0-0.2 [facility] Comment on above: Performed By: #### L [id number] ####Academic Intern: SWATI RATLIFF ([id number])[facility] Basophils/100 WBC (Bld) 0.5 % Normal 0.0-2.0 [facility] Comment on above: Performed By: #### L [id number] ####Academic Intern: SWATI RATLIFF ([id number])[facility] [place] [address] Eosinophils (Bld) [#/Vol] 0.2 10*3/uL Normal 0.0-0.5 [facility] Comment on above: Performed By: #### L [id number] ####Academic Intern: SWATI RATLIFF ([id number])[facility])[address] [place] [address] Eosinophils/100 WBC (Bld) 4.7 % Normal 0.0-6.0 [facility] Comment on above: Performed By: #### L [id number] ####Academic Intern: SWATI RATLIFF ([id number])[facility])[address] [place] [address] Erythrocyte distribution width (RBC) [Ratio] 15.5 % High 11.5-15.0 [facility] Comment on above: Performed By: #### L [id number] ####Academic Intern: SWATI RATLIFF ([id number])[facility])[address] [place] [address] Hematocrit (Bld) [Volume fraction] 33.3 % Low 40.0-52.0 [facility] Comment on above: Performed By: #### L [id number] ####Academic Intern: SWATI RATLIFF ([id number])[facility])[address] [place] [address] Hemoglobin (Bld) [Mass/Vol] 10.2 g/dL Low 13.0-18.0 [facility] Comment on above: Performed By: #### L [id number] ####Academic Intern: SWATI RATLIFF ([id number])[facility])[address] [place] [address] IMMATURE GRANS % 0.0 % Normal 0.0-2.0 [facility] Comment on above: Performed By: #### L [id number] ####Academic Intern: SWATI RATLIFF ([id number])[facility])[address] [place] [address] IMMATURE GRANS ABSOLUTE 0.0 10*3/uL Normal <0.1 [facility] Comment on above: Performed By: #### L [id number] ####Academic Intern: SWATI RATLIFF ([id number])[facility])[address] [place] [address] Lymphocytes (Bld) [#/Vol] 0.8 10*3/uL Low 1.0-4.3 [facility] Comment on above: Performed By: #### L [id number] ####Academic Intern: SWATI RATLIFF ([id number])[address] Lymphocytes/100 WBC (Bld) 20.6 % Normal 15.0-45.0 [facility] Comment on above: Performed By: #### L [id number] ####Academic Intern: SWATI RATLIFF ([id number])[facility])[address] [place] [address] MCH (RBC) [Entitic mass] 29.7 pg Normal 26.0-34.0 [facility] Comment on above: Performed By: #### L [id number] ####Academic Intern: SWATI RATLIFF ([id number])[address] MCHC 30.6 % Normal 30.5-36.0 [facility] Comment on above: Performed By: #### L [id number] ####Academic Intern: SWATI RATLIFF ([id number])[facility])[address] [place] [address] MCV (RBC) [Entitic vol] 97.1 fL Normal 77.0-99.0 [facility] Comment on above: Performed By: #### L [id number] ####Academic Intern: SWATI RATLIFF ([id number])[facility])[address] [place] [address] Monocytes (Bld) [#/Vol] 0.5 10*3/uL Normal 0.0-0.9 [facility] Comment on above: Performed By: #### L [id number] ####Academic Intern: SWATI RATLIFF ([id number])[facility])[address] [place] [address] Monocytes/100 WBC (Bld) 11.8 % Normal 5.0-13.0 [facility] Comment on above: Performed By: #### L [id number] ####Academic Intern: SWATI RATLIFF ([id number])[facility] ([facility])[address] [place] [address] NEUTROPHILS ABSOLUTE 2.5 10*3/uL Normal 1.8-7.5 [facility] Comment on above: Performed By: #### L [id number] ####Academic Intern: SWATI RATLIFF ([id number])[facility])[address] [place] [address] Neutrophils/100 WBC (Bld) 62.4 % Normal 38.0-82.0 [facility] Comment on above: Performed By: #### L [id number] ####Academic Intern: SWATI RATLIFF ([id number])[facility])[address] [place] [address] NRBC 0.0 /100 WBCs Normal 0.0-2.0 [facility] Comment on above: Performed By: #### L [id number] ####Academic Intern: SWATI RATLIFF ([id number])[facility])[address] [place] [address] Platelet mean volume (Bld) [Entitic vol] 10.7 fL Normal 9.0-12.7 [facility] Comment on above: Performed By: #### L [id number] ####Academic Intern: SWATI RATLIFF ([id number])[facility])[address] [place] [address] Platelets (Bld) [#/Vol] 167 10*3/uL Normal 140-440 [facility] Comment on above: Performed By: #### L [id number] ####Academic Intern: SWATI RATLIFF ([id number])[facility])[address] [place] [address] RBC (Bld) [#/Vol] 3.43 10*6/uL Low 4.40-5.90 [facility] Comment on above: Performed By: #### L [id number] ####Academic Intern: SWATI RATLIFF ([id number])[facility])[address] [place] [address] WBC (Bld) [#/Vol] 4.1 10*3/uL Normal 3.6-10.7 [facility] Comment on above: Performed By: #### L [id number] ####Academic Intern: SWATI RATLIFF ([id number])[facility])[address] [place] [address] COMPREHENSIVE METABOLIC PANE [employer] 12-04-2023 Albumin [Mass/Vol] 3.0 g/dL Low 3.5-5.0 [facility] Comment on above: Performed By: #### L [id number] ####Academic Intern: SWATI RATLIFF ([id number])[facility])[address] [place] [address] ALP [Catalytic activity/Vol] 70 U/L Normal 38-126 [facility] Comment on above: Performed By: #### L [id number] ####Academic Intern: SWATI RATLIFF ([id number])[facility])[address] [place] [address] ALT [Catalytic activity/Vol] 11 U/L Normal 0-49 [facility] Comment on above: Performed By: #### L [id number] ####Academic Intern: SWATI RATLIFF ([id number])[facility])[address] [place] [address] Anion gap [Moles/Vol] 5 mmol/L Normal 3-13 [facility] Comment on above: Performed By: #### L [id number] ####Academic Intern: SWATI RATLIFF ([id number])[facility] [place] [address] AST [Catalytic activity/Vol] 14 U/L Low 15-46 [facility] Comment on above: Performed By: #### L [id number] ####Academic Intern: SWATI RATLIFF ([id number])[facility] [place] [address] [place] Bilirubin [Mass/Vol] 0.4 mg/dL Normal 0.2-1.3 [facility] Comment on above: Performed By: #### L [id number] ####Academic Intern: SWATI RATLIFF ([id number])[facility])[address] [place] [address] Calcium [Mass/Vol] 8.6 mg/dL Normal 8.4-10.4 [facility] Comment on above: Performed By: #### L [id number] ####Academic Intern: SWATI RATLIFF ([id number])[facility] [place] [address] [place] Chloride [Moles/Vol] 114 mmol/L High 98-107 [facility] Comment on above: Performed By: #### L [id number] ####Academic Intern: SAWTI RATLIFF ([id number])[facility] [place] [address] [place] CO2 [Moles/Vol] 19 mmol/L Low 22-30 [facility] Comment on above: Performed By: #### L [id number] ####Academic Intern: SWATI RATLIFF ([id number])[facility])[address] [place] [address] [place] Creatinine [Mass/Vol] 0.93 mg/dL Normal 0.66-1.25 [facility] Comment on above: Performed By: #### L [id number] ####Academic Intern: SWATI RATLIFF ([id number])[facility])[address] [place] [address] [place] GLOMERULAR FILTRATION RATE ML/MIN/1.73 SQ M.PREDICTED 90.0 mL/min/1.73m*2 Normal >60.0 [facility] Comment on above: Result Comment: Calc ulation based on the Chronic Kidney Disease Epidemiology Collaboration (CKD-EPI) equation refit without adjustment for race Performed By: #### L [id number] ####Academic Intern: SWATI RATLIFF ([id number])[facility])[address] [place] [address] Glucose [Mass/Vol] 90 mg/dL Normal 70-100 [facility] Comment on above: Performed By: #### L [id number] ####Academic Intern: SWATI RATLIFF ([id number])[facility])[address] [place] [address] Potassium [Moles/Vol] 4.2 mmol/L Normal 3.5-5.1 [facility] Comment on above: Performed By: #### L [id number] ####Academic Intern: SWATI RATLIFF ([id number])[facility])[address] [place] [address] Protein [Mass/Vol] 5.4 g/dL Low 6.3-8.2 [facility] Comment on above: Performed By: #### L [id number] ####Academic Intern: SWATI RATLIFF ([id number])[facility])[address] [place] [address] Sodium [Moles/Vol] 138 mmol/L Normal 135-145 [facility] Comment on above: Performed By: #### L [id number] ####Academic Intern: SWATI RATLIFF ([id number])[facility])[address] [place] [address] Urea nitrogen [Mass/Vol] 18 mg/dL Normal 9-20 [facility] Comment on above: Performed By: #### L [id number] ####Academic Intern: SWATI RATLIFF ([id number])[facility])[address] [place] [address] Comprehensive metabolic 1998 panelon 12-04-2023 Albumin [Mass/Vol] 3.0 g/dL Low 3.5 - 5.0 g/dL [facility] ALP [Catalytic activity/Vol] 70 U/L 38 - 126 U/L [facility] ALT [Catalytic activity/Vol] 11 U/L 0 - 49 U/L [facility] Anion gap [Moles/Vol] 5 mmol/L 3 - 13 mmol/L [facility] AST [Catalytic activity/Vol] 14 U/L Low 15 - 46 U/L [facility] Bilirubin [Mass/Vol] 0.4 mg/dL 0.2 - 1 .3 mg/dL [facility] Calcium [Mass/Vol] 8.6 mg/dL 8.4 - 10. 4 mg/dL [facility] Chloride [Moles/Vol] 114 mmol/L High 98 - 10 7 mmol/L [facility] CO2 [Moles/Vol] 19 mmol/L Low 22 - 30 mmol/L [facility] Creatinine [Mass/Vol] 0.93 mg/dL 0.66 - 1.25 mg/dL [facility] GFR/1.73 sq M.predicted (S/P/Bld) [Vol rate/Area] 90.0 mL/min - PINF [facility] Comment on above: Calculation based on the Chronic Kidney Disease Epidemiology Collaboration (CKD-EPI) equation refit without adjustment for race Glucose [Mass/Vol] 90 mg/dL 70 - 100 mg/dL [facility] Interpretation and review of laboratory results Abnormal [facility] Potassium [Moles/Vol] 4.2 mmol/L 3.5 - 5.1 mmol/L [facility] Protein [Mass/Vol] 5.4 g/dL Low 6.3 - 8.2 g/dL [facility] Sodium [Moles/Vol] 138 mmol/L 135 - 145 mmol/L [facility] Urea nitrogen [Mass/Vol] 18 mg/dL 9 - 20 mg/dL [facility] - Chemistry and C hemistry - challengeon 12-04-2023 Glucose [Mass/Vol] 190 mg/dL High 70 - 100 mg/dL [facility] Glucose [Mass/Vol] 142 mg/dL High 70 - 100 mg/dL [facility] Glucose [Mass/Vol] 113 mg/dL High 70 - 100 mg/dL [facility] Glucose [Mass/Vol] 118 mg/dL High 70 - 100 mg/dL [facility] Glucose [Mass/Vol] 107 mg/dL High 70 - 100 mg/dL [facility] No Panel Informationon 12-03 Interpretation and review of laboratory results Abnormal [facility] Performed by: [facility], [address] [place] [address] CLIA ID: [id number] [facility] Interpretation and review of laboratory results Abnormal [facility] Performed by: [facility], [address] [place] [address] CLIA ID: [id number] [facility] Interpretation and review of laboratory results Abnormal [facility] Performed by: [facility], [address] [place] [address], [facility] [address] CLIA ID: [id number] [facility] Interpretation and review of laboratory results Abnormal [facility] Performed by: [facility], [address] [place] [address], [facility] [address] CLIA ID: [id number] [facility] Interpretation and review of laboratory results Abnormal [facility] Performed by: [facility], [address] [place] [address] CLIA ID: [id number] [facility] Nursing Noteon 12-04-2023 Nursing Note Normal [facility] Progress Noteon 12-04-2023 Progress Note PHYSICAL THERAPY [facility] Name/MRN: James Reyes ([id number]) Date: 12/04/2023 Attempted PT. Pt was sleeping soundly. Will re-attempt PT at later time/date as schedule permits. Heather Berkowitz, GARRETT Normal [facility] Progress Note Normal [facility] Progress Note Normal [facility] Urinalysis complete panel (U )Ordered By: Arnaldo David on 12-04-2023 Bacteria LM.HPF (Urine sed) [#/Area] Loaded Abnormal Negative /HPF [facility] Bilirubin Ql (U) Negative Negative mg/dL [facility] Clarity (U) Turbid Abnormal Clear [facility] Color (U) Yellow Lt. Yellow [facility] Epithelial cells.squamous LM.HPF (Urine sed) [#/Area] 0-2 [facility] Glucose Ql (U) 100 mg/dL Abnormal Normal (<70) [facility] Hemoglobin Ql (U) 0.06 mg/dL Abnormal Negative [facility] Hyaline casts Auto (Urine sed) [#/Area] Negative Negative /LPF [facility] Interpretation and review of laboratory results Abnormal [facility] Ketones (U) [Mass/Vol] Negative Negat abdulkadir mg/dL [facility] Leukocyte clumps LM.HPF (Urine sed) [#/Area] Many Abnormal Negative /HPF [facility] Leukocyte esterase Test strip Ql (U) 500 Abnormal Negative Poornima/uL [facility] Mucus LM.HPF (Urine sed) [#/Area] Few Negative /LPF [facility] Nitrite Ql (U) Positive Abnormal Negative [facility] pH (U) 8.0 [pH] 5.0 - 8.0 pH [facility] Protein (U) [Mass/Vol] 30 mg/dL Abnormal Negative [facility] RBC LM.HPF (Urine sed) [#/Area] 11-25 Abnormal [facility] Specific gravity (U) [Rel density] 1.012 1.005 - 1.030 [facility] Triple phosphate crystals LM.HPF (Urine sed) [#/Area] Many Abnormal Negative /HPF [facility] Urobilinogen (U) [Mass/Vol] Normal Normal (0-1) mg/dL [facility] WBC LM.HPF (Urine sed) [#/Area] /[HPF] Abnormal [facility] Confirmed by Light Microscopy [facility] CBC W Auto Differential pane l (Bld)on 12-03-2023 Basophils (Bld) [#/Vol] 0.0 10*3/uL 0.0 - 0.2 10*3/uL [facility] Basophils/100 WBC (Bld) 0.5 % 0.0 - 2.0 % [facility] Eosinophils (Bld) [#/Vol] 0.2 10*3/uL 0.0 - 0.5 10*3/uL [facility] Eosinophils/100 WBC (Bld) 4.5 % 0.0 - 6.0 % [facility] Erythrocyte distribution width (RBC) [Ratio] 15.4 % High 11.5 - 15.0 % [facility] Hematocrit (Bld) [Volume fraction] 32.5 % Low 40.0 - 52.0 % [facility] Hemoglobin (Bld) [Mass/Vol] 10.2 g/dL Low 13.0 - 18.0 g/dL [facility] Immature granulocytes (Bld) [#/Vol] 0.0 10*3/uL NINF - 0.1 10*3/uL [facility] [employer] Immature granulocytes/100 WBC (Bld) 0.2 % 0.0 - 2.0 % [facility] Interpretation and review of laboratory results Abnormal [facility] Lymphocytes (Bld) [#/Vol] 0.9 10*3/uL Low 1.0 - 4.3 10*3/uL [facility] Lymphocytes/100 WBC (Bld) 20.9 % 15.0 - 45.0 % [facility] MCH (RBC) [Entitic mass] 30.4 pg 26. 0 - 34.0 pg [facility] MCHC (RBC) [Mass/Vol] 31.4 % 30.5 - 36.0 % [facility] MCV (RBC) [Entitic vol] 96.7 fL 77.0 - 99.0 fL [facility] Monocytes (Bld) [#/Vol] 0.5 10*3/uL 0.0 - 0.9 10*3/uL [facility] Monocytes/100 WBC (Bld) 10.9 % 5.0 - 13.0 % [facility] Neutrophils (Bld) [#/Vol] 2.7 10*3/uL 1.8 - 7.5 10*3/uL [facility] Neutrophils/100 WBC (Bld) 63.0 % 38.0 - 82.0 % [facility] Nucleated RBC/100 WBC (Bld) [Ratio] 0.0 % [facility] Platelet mean volume (Bld) [Entitic vol] 10.5 fL 9.0 - 12.7 fL [facility] Platelets (Bld) [#/Vol] 165 10*3/uL 140 - 440 10*3/uL [facility] RBC (Bld) [#/Vol] 3.36 10*6/uL Low 4.40 - 5.9 0 10*6/uL [facility] WBC (Bld) [#/Vol] 4.2 10*3/uL 3.6 - 10.7 10*3/uL [facility] CBC WITH AUTO DIFFERENTIALon 12-03-2023 Basophils (Bld) [#/Vol] 0.0 10*3/uL Normal 0.0-0.2 [facility] Comment on above: Performed By: #### L [id number] ####Academic Intern: SWATI RATLIFF ([id number])[facility] [place] [address] Basophils/100 WBC (Bld) 0.5 % Normal 0.0-2.0 [facility] Comment on above: Performed By: #### L [id number] ####Academic Intern: SWATI RATLIFF ([id number])[facility] [place] [address] Eosinophils (Bld) [#/Vol] 0.2 10*3/uL Normal 0.0-0.5 [facility] Comment on above: Performed By: #### L [id number] ####Academic Intern: SWATI RATLIFF ([id number])[facility] [place] [address] Eosinophils/100 WBC (Bld) 4.5 % Normal 0.0-6.0 [facility] Comment on above: Performed By: #### L [id number] ####Academic Intern: SWATI RATLIFF ([id number])[facility])[address] [place] [address] Erythrocyte distribution width (RBC) [Ratio] 15.4 % High 11.5-15.0 [facility] Comment on above: Performed By: #### L [id number] ####Academic Intern: SWATI RATLIFF ([id number])[facility])[address] [place] [address] Hematocrit (Bld) [Volume fraction] 32.5 % Low 40.0-52.0 [facility] Comment on above: Performed By: #### L [id number] ####Academic Intern: SWATI RATLIFF ([id number])[facility] [place] [address] Hemoglobin (Bld) [Mass/Vol] 10.2 g/dL Low 13.0-18.0 [facility] Comment on above: Performed By: #### L [id number] ####Academic Intern: SWATI [id number])[facility] [place] [address] IMMATURE GRANS % 0.2 % Normal 0.0-2.0 [facility] Comment on above: Performed By: #### L [id number] ####Academic Intern: SWATI RATLIFF ([id number])[facility] [place] [address] IMMATURE GRANS ABSOLUTE 0.0 10*3/uL Normal <0.1 [facility] Comment on above: Performed By: #### L [id number] ####Academic Intern: SWATI RATLIFF ([id number])[facility] [place] [address] Lymphocytes (Bld) [#/Vol] 0.9 10*3/uL Low 1.0-4.3 [facility] Comment on above: Performed By: #### L [id number] ####Academic Intern: SWATI RATLIFF ([id number])[facility] [place] [address] Lymphocytes/100 WBC (Bld) 20.9 % Normal 15.0-45.0 [facility] Comment on above: Performed By: #### L [id number] ####Academic Intern: SWATI RATLIFF ([id number])[facility] [place] [address] MCH (RBC) [Entitic mass] 30.4 pg Normal 26.0-34.0 [facility] Comment on above: Performed By: #### L [id number] ####Academic Intern: SWATI RATLIFF ([id number])[facility] [place] [address] MCHC 31.4 % Normal 30.5-36.0 [facility] Comment on above: Performed By: #### L [id number] ####Academic Intern: SWATI RATLIFF ([id number])[facility] [place] [address] MCV (RBC) [Entitic vol] 96.7 fL Normal 77.0-99.0 [facility] Comment on above: Performed By: #### L [id number] ####Academic Intern: SWATI RATLIFF ([id number])[facility] [place] [address] Monocytes (Bld) [#/Vol] 0.5 10*3/uL Normal 0.0-0.9 [facility] Comment on above: Performed By: #### L [id number] ####Academic Intern: SWATI RATLIFF ([id number])[facility] [place] [address] Monocytes/100 WBC (Bld) 10.9 % Normal 5.0-13.0 [facility] Comment on above: Performed By: #### L [id number] ####Academic Intern: SWATI RATLIFF ([id number])[facility] [place] [address] NEUTROPHILS ABSOLUTE 2.7 10*3/uL Normal 1.8-7.5 [facility] Comment on above: Performed By: #### L [id number] ####Academic Intern: SWATI RATLIFF ([id number])[facility])[address] [place] [address] Neutrophils/100 WBC (Bld) 63.0 % Normal 38.0-82.0 [facility] Comment on above: Performed By: #### L [id number] ####Academic Intern: SWATI RATLIFF ([id number])[facility] [place] [address] NRBC 0.0 /100 WBCs Normal 0.0-2.0 [facility] Comment on above: Performed By: #### L [id number] ####Academic Intern: SWATI RATLIFF ([id number])[facility] [place] [address] Platelet mean volume (Bld) [Entitic vol] 10.5 fL Normal 9.0-12.7 [facility] Comment on above: Performed By: #### L [id number] ####Academic Intern: SWATI RATLIFF ([id number])[facility] [place] [address] Platelets (Bld) [#/Vol] 165 10*3/uL Normal 140-440 [facility] Comment on above: Performed By: #### L [id number] ####Academic Intern: SWATI RATLIFF ([id number])[facility] [place] [address] RBC (Bld) [#/Vol] 3.36 10*6/uL Low 4.40-5.90 [facility] Comment on above: Performed By: #### L [id number] ####Academic Intern: SWATI RATLIFF ([id number])[facility] [place] [address] WBC (Bld) [#/Vol] 4.2 10*3/uL Normal 3.6-10.7 [facility] Comment on above: Performed By: #### L [id number] ####Academic Intern: SWATI RATLIFF ([id number])[facility] [place] [address] COMPLETE URINALYSISon 2023 BACTERIA (#/HPF) IN URINE Loaded Abnormal Negative [facility] Comment on above: Performed By: #### L [id number] ####Academic Intern: SWATI RATLIFF ([id number])[facility])[address] [place] [address] BILIRUBIN, TOTAL PRESENCE IN URINE Negative Normal Negative [facility] Comment on above: Performed By: #### L [id number] ####Academic Intern: SWATI RATLIFF ([id number])[facility])[address] [place] [address] Clarity (U) Turbid Abnormal Clear [facility] Comment on above: Performed By: #### L [id number] ####Academic Intern: SWATI RATLIFF ([id number])[facility] [place] [address] Color (U) Yellow Normal Lt. Yellow [facility] Comment on above: Performed By: #### L [id number] ####Academic Intern: SWATI RATLIFF ([id number])[facility])[address] [place] [address] Glucose (U) [Mass/Vol] 100 mg/dL Abnormal Janice l (<70) [facility] Comment on above: Performed By: #### L [id number] ####Academic Intern: SWATI RATLIFF ([id number])[facility] [place] [address] HEMOGLOBIN PRESENCE IN URINE 0.06 mg/dL Abnormal Negative [facility] Comment on above: Performed By: #### L [id number] ####Academic Intern: SWATI RATLIFF ([id number])[facility])[address] [place] [address] HYALINE CASTS (#/LPF) IN URINE SEDIMENT BY MICROSCOPY Negative Normal Negative [facility] Comment on above: Performed By: #### L [id number] ####Academic Intern: SWATI RATLIFF ([id number])[facility] [place] [address] Ketones Ql (U) Negative Normal Negative [facility] Comment on above: Performed By: #### L [id number] ####Academic Intern: SWATI RATLIFF ([id number])[facility] [place] [address] LEUKOCYTE ESTERASE PRESENCE IN URINE BY TEST STRIP 500 Poornima/uL Abnormal Negative [facility] Comment on above: Performed By: #### L [id number] ####Academic Intern: SWATI RATLIFF ([id number])[facility])[address] [place] [address] [place] MUCUS (#/LPF) IN URINE SEDIMENT Few Normal Negative [facility] Comment on above: Performed By: #### L [id number] ####Academic Intern: SWATI RATLIFF ([id number])[facility])[address] [place] [address] [place] NITRITE PRESENCE IN URINE Positive Abnormal Negative [facility] Comment on above: Performed By: #### L [id number] ####Academic Intern: SWATI RATLIFF ([id number])[facility])[address] [place] [address] pH (U) 8.0 [pH] Normal 5.0-8.0 [facility] Comment on above: Performed By: #### L [id number] ####Academic Intern: SWATI RATLIFF ([id number])[facility] [place] [address] Protein (U) [Mass/Vol] 30 mg/dL Abnormal Negative [facility] Comment on above: Performed By: #### L [id number] ####Academic Intern: SWATI RATLIFF ([id number])[facility])[address] [place] [address] RBC (#/HPF) IN URINE SEDIMENT 11-25 Abnormal 0-2 [facility] Comment on above: Performed By: #### L [id number] ####Academic Intern: SWATI RATLIFF ([id number])[facility] [place] [address] Specific gravity (U) [Rel density] 1.012 Normal 1.005-1.030 [facility] Comment on above: Result Comment: TAVO Nina COMMENTS:Confirmed by Light Microscopy Performed By: #### L [id number] ####Academic Intern: SWATI RATLIFF ([id number])[facility] [place] [address] SQUAMOUS EPITHELIAL CELLS (#/HPF) IN URINE SEDIMENT 0-2 Normal 3-5 [facility] Comment on above: Performed By: #### L [id number] ####Academic Intern: SWATI RATLIFF ([id number])[facility])[address] [place] [address] TRIPLE PHOSPHATE CRYSTALS (#/HPF) IN URINE Many Abnormal Negative [facility] Comment on above: Performed By: #### L [id number] ####Academic Intern: SWATI RATLIFF ([id number])[facility] [place] [address] UROBILINOGEN (MG/DL) IN URINE Normal Normal Normal (0-1) [facility] Comment on above: Performed By: #### L [id number] ####Academic Intern: SWATI RATLIFF ([id number])[facility])[address] [place] [address] WBC (LEUKOCYTE) (#/HPF) IN URINE SEDIMENT >100 Abnormal 0-5 [facility] Comment on above: Performed By: #### L [id number] ####Academic Intern: SWATI RATLIFF ([id number])[facility])[address] [place] [address] WBC (LEUKOCYTE) CLUMPS (#/HPF) IN URINE SEDIMENT Many Abnormal Negative [facility] Comment on above: Performed By: #### L [id number] ####Academic Intern: SWATI RATLIFF ([id number])[facility] [place] [address] COMPREHENSIVE METABOLIC PANE Cricket 12-03-2023 Albumin [Mass/Vol] 2.9 g/dL Low 3.5-5.0 [facility] Comment on above: Performed By: #### L [id number] ####Academic Intern: SWATI RATLIFF ([id number])[facility])[address] [place] [address] ALP [Catalytic activity/Vol] 71 U/L Normal 38-126 [facility] Comment on above: Performed By: #### L [id number] ####Academic Intern: SWATI RATLIFF ([id number])[facility])[address] [place] [address] ALT [Catalytic activity/Vol] 12 U/L Normal 0-49 [facility] Comment on above: Performed By: #### L [id number] ####Academic Intern: SWAIT RATLIFF ([id number])[facility])[address] [place] [address] Anion gap [Moles/Vol] 5 mmol/L Normal 3-13 [facility] Comment on above: Performed By: #### L [id number] ####Academic Intern: SWATI RATLIFF ([id number])[facility])[address] [place] [address] AST [Catalytic activity/Vol] 13 U/L Low 15-46 [facility] Comment on above: Performed By: #### L [id number] ####Academic Intern: SWATI RATLIFF ([id number])[facility] [place] [address] Bilirubin [Mass/Vol] 0.3 mg/dL Normal 0.2-1.3 [facility] Comment on above: Performed By: #### L [id number] ####Academic Intern: SWATI RATLIFF ([id number])[facility])[address] [place] [address] Calcium [Mass/Vol] 8.4 mg/dL Normal 8.4-10.4 [facility] Comment on above: Performed By: #### L [id number] ####Academic Intern: SWATI RATLIFF ([id number])[facility] [place] [address] Chloride [Moles/Vol] 114 mmol/L High 98-107 [facility] Comment on above: Performed By: #### L [id number] ####Academic Intern: SWATI RATLIFF ([id number])[facility] [place] [address] [place] CO2 [Moles/Vol] 20 mmol/L Low 22-30 [facility] Comment on above: Performed By: #### L [id number] ####Academic Intern: SWATI RATLIFF ([id number])[facility] [place] [address] Creatinine [Mass/Vol] 0.93 mg/dL Normal 0.66-1.25 [facility] Comment on above: Performed By: #### L [id number] ####Academic Intern: SWATI RATLIFF ([id number])[facility] GLOMERULAR FILTRATION RATE ML/MIN/1.73 SQ M.PREDICTED 90.0 mL/min/1.73m*2 Normal >60.0 [facility] Comment on above: Result Comment: Calc ulation based on the Chronic Kidney Disease Epidemiology Collaboration (CKD-EPI) equation refit without adjustment for race Performed By: #### L [id number] ####Academic Intern: SWATI RATLIFF ([id number])[facility])[address] [place] [address] Glucose [Mass/Vol] 134 mg/dL High 70-100 [facility] Comment on above: Performed By: #### L [id number] ####Academic Intern: SWATI RATLIFF ([id number])[facility])[address] [place] [address] Potassium [Moles/Vol] 3.9 mmol/L Normal 3.5-5.1 [facility] Comment on above: Performed By: #### L [id number] ####Academic Intern: SWATI RATLIFF ([id number])[facility] [place] [address] Protein [Mass/Vol] 5.3 g/dL Low 6.3-8.2 [facility] Comment on above: Performed By: #### L [id number] ####Academic Intern: SWATI RATLIFF ([id number])[facility])[address] [place] [address] Sodium [Moles/Vol] 139 mmol/L Normal 135-145 [facility] Comment on above: Performed By: #### L [id number] ####Academic Intern: SWATI RATLIFF ([id number])[facility])[address] [place] [address] Urea nitrogen [Mass/Vol] 19 mg/dL Normal 9-20 [facility] Comment on above: Performed By: #### L [id number] ####Academic Intern: SWATI RATLIFF ([id number])[facility])[address] [place] [address] Comprehensive metabolic 1998 panelon 12-03-2023 Albumin [Mass/Vol] 2.9 g/dL Low 3.5 - 5.0 g/dL [facility] ALP [Catalytic activity/Vol] 71 U/L 38 - 126 U/L [facility] ALT [Catalytic activity/Vol] 12 U/L 0 - 49 U/L [facility] Anion gap [Moles/Vol] 5 mmol/L 3 - 13 mmol/L [facility] AST [Catalytic activity/Vol] 13 U/L Low 15 - 46 U/L [facility] Bilirubin [Mass/Vol] 0.3 mg/dL 0.2 - 1 .3 mg/dL [facility] Calcium [Mass/Vol] 8.4 mg/dL 8.4 - 10. 4 mg/dL [facility] Chloride [Moles/Vol] 114 mmol/L High 98 - 10 7 mmol/L [facility] CO2 [Moles/Vol] 20 mmol/L Low 22 - 30 mmol/L [facility] Creatinine [Mass/Vol] 0.93 mg/dL 0.66 - 1.25 mg/dL [facility] GFR/1.73 sq M.predicted (S/P/Bld) [Vol rate/Area] 90.0 mL/min - PINF [facility] Comment on above: Calculation based on the Chronic Kidney Disease Epidemiology Collaboration (CKD-EPI) equation refit without adjustment for race Glucose [Mass/Vol] 134 mg/dL High 70 - 100 mg/dL [facility] Interpretation and review of laboratory results Abnormal [facility] Potassium [Moles/Vol] 3.9 mmol/L 3.5 - 5.1 mmol/L [facility] Protein [Mass/Vol] 5.3 g/dL Low 6.3 - 8.2 g/dL [facility] Sodium [Moles/Vol] 139 mmol/L 135 - 145 mmol/L [facility] Urea nitrogen [Mass/Vol] 19 mg/dL 9 - 20 mg/dL [facility] - Chemistry and C hemistry - challengeon 12-03-2023 Glucose [Mass/Vol] 165 mg/dL High 70 - 100 mg/dL [facility] Glucose [Mass/Vol] 101 mg/dL High 70 - 100 mg/dL [facility] Glucose [Mass/Vol] 169 mg/dL High 70 - 100 mg/dL [facility] Glucose [Mass/Vol] 119 mg/dL High 70 - 100 mg/dL [facility] No Panel Informationon 12-02 Interpretation and review of laboratory results Abnormal [facility] Performed by: [facility], [address] [place] [id number] CLIA ID: [id number] [facility] Interpretation and review of laboratory results Abnormal [facility] Performed by: [facility], [address] [place] [id number] CLIA ID: [id number] [facility] Interpretation and review of laboratory results Abnormal [facility] Performed by: [facility], [address] [place] [id number] CLIA ID: [id number] [facility] Interpretation and review of laboratory results Abnormal [facility] Performed by: [facility], [address] [place] [address] CLIA ID: [id number] [facility] Progress Noteon 12-03-2023 Progress Note Normal [facility] Normal [facility] URINE CULTUREon 12-03-2023 Bacteria identified Cx Nom (U) Normal [facility] Comment on above: Performed By: #### L [id number] ####Academic Intern: SWATI RATLIFF ([id number])[facility] [place] [address] 25-hydroxyvitamin D3 [Mass/V ol]on 12-02-2023 Interpretation and review of laboratory results Abnormal [facility] Therapy is based on measurement of Total 25-OHD with the following classification levels: Less than 20 ng/mL: Indicative of Vit D deficiency 20-30 ng/mL: Suggests Vit D insufficiency Optimal: Greater than or equal to 30 ng/mL Test performed by [employer] Competitive Immunoassay, measuring Total Vitamin D, not individual fractions. [facility] CBC W Auto Differential pane l (Bld)on 12-02-2023 Basophils (Bld) [#/Vol] 0.0 10*3/uL 0.0 - 0.2 10*3/uL [facility] Basophils/100 WBC (Bld) 0.7 % 0.0 - 2.0 % [facility] Eosinophils (Bld) [#/Vol] 0.2 10*3/uL 0.0 - 0.5 10*3/uL [facility] Eosinophils/100 WBC (Bld) 4.6 % 0.0 - 6.0 % [facility] Erythrocyte distribution width (RBC) [Ratio] 15.7 % High 11.5 - 15.0 % [facility] Hematocrit (Bld) [Volume fraction] 33.7 % Low 40.0 - 52.0 % [facility] Hemoglobin (Bld) [Mass/Vol] 10.5 g/dL Low 13.0 - 18.0 g/dL [facility] Immature granulocytes (Bld) [#/Vol] 0.0 10*3/uL NINF - 0.1 10*3/uL [facility] Immature granulocytes/100 WBC (Bld) 0.2 % 0.0 - 2.0 % [facility] Interpretation and review of laboratory results Abnormal [facility] Lymphocytes (Bld) [#/Vol] 0.8 10*3/uL Low 1.0 - 4.3 10*3/uL [facility] Lymphocytes/100 WBC (Bld) 18.0 % 15.0 - 45.0 % [facility] MCH (RBC) [Entitic mass] 30.3 pg 26. 0 - 34.0 pg [facility] MCHC (RBC) [Mass/Vol] 31.2 % 30.5 - 36.0 % [facility] MCV (RBC) [Entitic vol] 97.1 fL 77.0 - 99.0 fL [facility] Monocytes (Bld) [#/Vol] 0.5 10*3/uL 0.0 - 0.9 10*3/uL [facility] Monocytes/100 WBC (Bld) 11.4 % 5.0 - 13.0 % [facility] Neutrophils (Bld) [#/Vol] 3.0 10*3/uL 1.8 - 7.5 10*3/uL [facility] Neutrophils/100 WBC (Bld) 65.1 % 38.0 - 82.0 % [facility] Nucleated RBC/100 WBC (Bld) [Ratio] 0.0 % [facility] Platelet mean volume (Bld) [Entitic vol] 10.7 fL 9.0 - 12.7 fL [facility] Platelets (Bld) [#/Vol] 171 10*3/uL 140 - 440 10*3/uL [facility] RBC (Bld) [#/Vol] 3.47 10*6/uL Low 4.40 - 5.9 0 10*6/uL [facility] WBC (Bld) [#/Vol] 4.6 10*3/uL 3.6 - 10.7 10*3/uL [facility] CBC WITH AUTO DIFFERENTIALon 12-02-2023 Basophils (Bld) [#/Vol] 0.0 10*3/uL Normal 0.0-0.2 [facility] Comment on above: Performed By: #### L [id number] ####Academic Intern: SWATI RATLIFF ([id number])[facility] [place] [address] Basophils/100 WBC (Bld) 0.7 % Normal 0.0-2.0 [facility] Comment on above: Performed By: #### L [id number] ####Academic Intern: SWATI RATLIFF ([id number])[facility] [place] [address] Eosinophils (Bld) [#/Vol] 0.2 10*3/uL Normal 0.0-0.5 [facility] Comment on above: Performed By: #### L [id number] ####Academic Intern: SWATI RATLIFF ([id number])[facility] [place] [address] Eosinophils/100 WBC (Bld) 4.6 % Normal 0.0-6.0 [facility] Comment on above: Performed By: #### L [id number] ####Academic Intern: SWATI RATLIFF ([id number])[facility] [place] [address] Erythrocyte distribution width (RBC) [Ratio] 15.7 % High 11.5-15.0 [facility] Comment on above: Performed By: #### L [id number] ####Academic Intern: SWATI RATLIFF ([id number])[facility] [place] [address] Hematocrit (Bld) [Volume fraction] 33.7 % Low 40.0-52.0 [facility] Comment on above: Performed By: #### L [id number] ####Academic Intern: SWATI RATLIFF ([id number])[facility] [place] [address] Hemoglobin (Bld) [Mass/Vol] 10.5 g/dL Low 13.0-18.0 [facility] Comment on above: Performed By: #### L [id number] ####Academic Intern: SWATI RATLIFF ([id number])[facility] [place] [address] IMMATURE GRANS % 0.2 % Normal 0.0-2.0 [facility] Comment on above: Performed By: #### L [id number] ####Academic Intern: SWATI RATLIFF ([id number])[facility] [place] [address] IMMATURE GRANS ABSOLUTE 0.0 10*3/uL Normal <0.1 [facility] Comment on above: Performed By: #### L [id number] ####Academic Intern: SWATI RATLIFF ([id number])[facility] [place] [address] Lymphocytes (Bld) [#/Vol] 0.8 10*3/uL Low 1.0-4.3 [facility] Comment on above: Performed By: #### L [id number] ####Academic Intern: SWATI RATLIFF ([id number])[facility] [place] [address] Lymphocytes/100 WBC (Bld) 18.0 % Normal 15.0-45.0 [facility] Comment on above: Performed By: #### L [id number] ####Academic Intern: SWATI RATLIFF ([id number])[facility] [place] [address] MCH (RBC) [Entitic mass] 30.3 pg Normal 26.0-34.0 [facility] Comment on above: Performed By: #### L [id number] ####Academic Intern: SWATI RATLIFF ([id number])[facility] [place] [address] MCHC 31.2 % Normal 30.5-36.0 [facility] Comment on above: Performed By: #### L [id number] ####Academic Intern: SWATI RATLIFF ([id number])[facility] [place] [address] MCV (RBC) [Entitic vol] 97.1 fL Normal 77.0-99.0 S [facility] Comment on above: Performed By: #### L [id number] ####Academic Intern: SWATI RATLIFF ([id number])[facility] [place] [address] Monocytes (Bld) [#/Vol] 0.5 10*3/uL Normal 0.0-0.9 [facility] Comment on above: Performed By: #### L [id number] ####Academic Intern: SWATI RATLIFF ([id number])[facility] [place] [address] Monocytes/100 WBC (Bld) 11.4 % Normal 5.0-13.0 [facility] Comment on above: Performed By: #### L [id number] ####Academic Intern: SWATI RATLIFF ([id number])[facility] [place] [address] NEUTROPHILS ABSOLUTE 3.0 10*3/uL Normal 1.8-7.5 [facility] Comment on above: Performed By: #### L [id number] ####Academic Intern: SWATI RATLIFF ([id number])[facility] [place] [address] Neutrophils/100 WBC (Bld) 65.1 % Normal 38.0-82.0 [facility] Comment on above: Performed By: #### L [id number] ####Academic Intern: SWATI RATLIFF ([id number])[facility] [place] [address] NRBC 0.0 /100 WBCs Normal 0.0-2.0 [facility] Comment on above: Performed By: #### L [id number] ####Academic Intern: SWATI RATLIFF ([id number])[facility] [place] [address] Platelet mean volume (Bld) [Entitic vol] 10.7 fL Normal 9.0-12.7 [facility] Comment on above: Performed By: #### L [id number] ####Academic Intern: SWATI RATLIFF ([id number])[facility] [place] [address] Platelets (Bld) [#/Vol] 171 10*3/uL Normal 140-440 [facility] Comment on above: Performed By: #### L [id number] ####Academic Intern: SWATI RATLIFF ([id number])[facility] [place] [address] RBC (Bld) [#/Vol] 3.47 10*6/uL Low 4.40-5.90 [facility] Comment on above: Performed By: #### L [id number] ####Academic Intern: SWATI RATLIFF ([id number])[facility] [place] [address] WBC (Bld) [#/Vol] 4.6 10*3/uL Normal 3.6-10.7 [facility] Comment on above: Performed By: #### L [id number] ####Academic Intern: SWATI RATLIFF ([id number])[facility] [place] [address] COMPREHENSIVE METABOLIC PANE Cricket 12-02-2023 Albumin [Mass/Vol] 3.1 g/dL Low 3.5-5.0 [facility] Comment on above: Performed By: #### L [id number], [id number] ####Academic Intern: SWATI RATLIFF ([id number])[facility] [place] [address] ALP [Catalytic activity/Vol] 82 U/L Normal 38-126 [facility] Comment on above: Performed By: #### Joyce ANDRE, [id number] ####Academic Intern: SWATI RATLIFF ([id number])[facility] [place] [address] ALT [Catalytic activity/Vol] 14 U/L Normal 0-49 [facility] Comment on above: Performed By: #### Joyce ANDRE, [id number] ####Academic Intern: SWATI RATLIFF ([id number])[facility] [place] [address] Anion gap [Moles/Vol] 5 mmol/L Normal 3-13 [facility] Comment on above: Performed By: #### Joyce ANDRE [id number] ####Academic Intern: SWATI RATLIFF ([id number])[facility] [place] [address] AST [Catalytic activity/Vol] 16 U/L Normal 15-46 [facility] Comment on above: Performed By: #### Joyce ANDRE [id number] ####Academic Intern: SWATI RATLIFF ([id number])[facility] [place] [address] Bilirubin [Mass/Vol] 0.3 mg/dL Normal 0.2-1.3 [facility] Comment on above: Performed By: #### Joyce ANDRE, [id number] ####Academic Intern: SWATI RATLIFF ([id number])[facility] [place] [address] Calcium [Mass/Vol] 8.5 mg/dL Normal 8.4-10.4 [facility] Comment on above: Performed By: #### Joyce ANDRE, [id number] ####Academic Intern: SWATI RATLIFF ([id number])[facility] [place] [address] Chloride [Moles/Vol] 113 mmol/L High 98-107 [facility] Comment on above: Performed By: #### Joyce ANDRE [id number] ####Academic Intern: SWATI RATLIFF ([id number])[facility] [place] [address] CO2 [Moles/Vol] 18 mmol/L Low 22-30 [facility] Comment on above: Performed By: #### Joyce ANDRE, [id number] ####Academic Intern: SWATI RATLIFF ([id number])[facility] [place] [address] Creatinine [Mass/Vol] 1.00 mg/dL Normal 0.66-1.25 [facility] Comment on above: Performed By: #### Joyce ANDRE [id number] ####Academic Intern: SWATI RATLIFF ([id number])[facility] [place] [address] GLOMERULAR FILTRATION RATE ML/MIN/1.73 SQ M.PREDICTED 82.5 mL/min/1.73m*2 Normal >60.0 [facility] Comment on above: Result Comment: Calc ulation based on the Chronic Kidney Disease Epidemiology Collaboration (CKD-EPI) equation refit without adjustment for race Performed By: #### Joyce ANDRE, [id number] ####Academic Intern: SWATI RATLIFF ([id number])[facility] [place] [address] [place] Glucose [Mass/Vol] 216 mg/dL High 70-100 [facility] Comment on above: Performed By: #### Joyce ANDRE, [id number] ####Academic Intern: SWAIT RATLIFF ([id number])[facility] [place] [address] [place] Potassium [Moles/Vol] 4.1 mmol/L Normal 3.5-5.1 [facility] Comment on above: Performed By: #### Joyce ANDRE, [id number] ####Academic Intern: SWATI RATLIFF ([id number])[facility] [place] [address] Protein [Mass/Vol] 5.5 g/dL Low 6.3-8.2 [facility] Comment on above: Performed By: #### Joyce AB17, [id number] ####Academic Intern: SWATI RATLIFF ([id number])[facility] [place] [address] Sodium [Moles/Vol] 137 mmol/L Normal 135-145 [facility] Comment on above: Performed By: #### Joyce SOTELO17, [id number] ####Academic Intern: SWATI RATLIFF ([id number])[facility] [place] [address] Urea nitrogen [Mass/Vol] 23 mg/dL High 9-20 [facility] Comment on above: Performed By: #### Joyce ANDRE, [id number] ####Academic Intern: SWATI RATLIFF ([id number])[facility])[address] [place] [address] Comprehensive metabolic 1998 panelon 12-02-2023 Albumin [Mass/Vol] 3.1 g/dL Low 3.5 - 5.0 g/dL [facility] ALP [Catalytic activity/Vol] 82 U/L 38 - 126 U/L [facility] ALT [Catalytic activity/Vol] 14 U/L 0 - 49 U/L [facility] Anion gap [Moles/Vol] 5 mmol/L 3 - 13 mmol/L [facility] AST [Catalytic activity/Vol] 16 U/L 15 - 46 U/L [facility] Bilirubin [Mass/Vol] 0.3 mg/dL 0.2 - 1 .3 mg/dL [facility] Calcium [Mass/Vol] 8.5 mg/dL 8.4 - 10. 4 mg/dL [facility] Chloride [Moles/Vol] 113 mmol/L High 98 - 10 7 mmol/L [facility] CO2 [Moles/Vol] 18 mmol/L Low 22 - 30 mmol/L [facility] Creatinine [Mass/Vol] 1.00 mg/dL 0.66 - 1.25 mg/dL [facility] GFR/1.73 sq M.predicted (S/P/Bld) [Vol rate/Area] 82.5 mL/min - PINF [facility] Comment on above: Calculation based on the Chronic Kidney Disease Epidemiology Collaboration (CKD-EPI) equation refit without adjustment for race Glucose [Mass/Vol] 216 mg/dL High 70 - 100 mg/dL [facility] Interpretation and review of laboratory results Abnormal [facility] Potassium [Moles/Vol] 4.1 mmol/L 3.5 - 5.1 mmol/L [facility] Protein [Mass/Vol] 5.5 g/dL Low 6.3 - 8.2 g/dL [facility] Sodium [Moles/Vol] 137 mmol/L 135 - 145 mmol/L [facility] Urea nitrogen [Mass/Vol] 23 mg/dL High 9 - 20 mg/dL [facility] - Chemistry and C hemistry - challengeon 12-02-2023 Glucose [Mass/Vol] 259 mg/dL High 70 - 100 mg/dL [facility] Glucose [Mass/Vol] 142 mg/dL High 70 - 100 mg/dL [facility] Comment on above: Caregiver Notified; Glucose [Mass/Vol] 207 mg/dL High 70 - 100 mg/dL [facility] Comment on above: Caregiver Notified; 25-hydroxyvitamin D3 [Mass/Vol] 24 ng/mL Low 30 - 100 ng/mL [facility] Glucose [Mass/Vol] 156 mg/dL High 70 - 100 mg/dL [facility] Comment on above: Caregiver Notified; Troponin I.cardiac [Mass/Vol] ng/mL NINF - 0.034 ng/mL [facility] No Panel Informationon 12-01 Interpretation and review of laboratory results Abnormal [facility] by: [facility], [address] [place] [id number] CLIA ID: [id number] [facility] [employer] [facility] Interpretation and review of laboratory results Abnormal [facility] Performed by: [facility], [address] [place] [address] CLIA ID: [id number] [facility] [employer] [facility] Interpretation and review of laboratory results Abnormal [facility] Performed by: [facility], [address] [place] [address] 12064 CLIA ID: [id number] [facility] [employer] [facility] Interpretation and review of laboratory results Abnormal [facility] Performed by: [facility], [address] [place] [address] CLIA ID: [id number] [facility] Progress Noteon 12-02-2023 Progress Note Normal [facility] TROPONIN Ion 12-02-2023 Troponin I.cardiac [Mass/Vol] ng/mL Normal <0.034 [facility] Comment on above: Result Comment: TAVO Nina COMMENTS:Patients with high levels of Biotin oral intake (ie >5 mg/day) may have falsely decreased Troponin levels. Performed By: #### L [id number], [id number] ####Academic Intern: SWATI RATLIFF ([id number])[facility] [place] [address] Troponin I.cardiac [Mass/Vol ]on 12-02-2023 Interpretation and review of laboratory results Normal [facility] Patients with high levels of Biotin oral intake (ie >5 mg/day) may have falsely decreased Troponin levels. [facility] VITAMIN D DEFICIENCY SCREENI NG (VIT D 25)on 12-02-2023 VIT D 25-OH, TOTAL 24 ng/mL Low 30-100 [facility] Comment on above: Result Comment: TAVO Nina COMMENTS:Therapy is based on measurement of Total 25-OHD with the following classification levels:Less than 20 ng/mL: Indicative of Vit D [id number] ng/mL: Suggests Vit D insufficiencyOptimal: Greater than or equal to 30 ng/mLTest performed by [employer] Competitive Immunoassay, measuring Total Vitamin D, not individual fractions. Performed By: #### L [id number] ####Academic Intern: CLARE HUGGINS ([id number])[facility] [place] [address] CARECOORDon 12-01-2023 CARECOORD Normal [facility] CARECOORD Normal [facility] CBC W Auto Differential pane l (Bld)Ordered By: Nash George on 12-01-2023 Basophils (Bld) [#/Vol] 0.0 10*3/uL 0.0 - 0.2 10*3/uL [facility] Basophils/100 WBC (Bld) 0.5 % 0.0 - 2.0 % [facility] Eosinophils (Bld) [#/Vol] 0.2 10*3/uL 0.0 - 0.5 10*3/uL [facility] Eosinophils/100 WBC (Bld) 5.1 % 0.0 - 6.0 % [facility] Erythrocyte distribution width (RBC) [Ratio] 15.7 % High 11.5 - 15.0 % [facility] Hematocrit (Bld) [Volume fraction] 33.3 % Low 40.0 - 52.0 % [facility] Hemoglobin (Bld) [Mass/Vol] 10.4 g/dL Low 13.0 - 18.0 g/dL [facility] Immature granulocytes (Bld) [#/Vol] 0.0 10*3/uL NINF - 0.1 10*3/uL [facility] Immature granulocytes/100 WBC (Bld) 0.2 % 0.0 - 2.0 % [facility] Interpretation and review of laboratory results Abnormal [facility] Lymphocytes (Bld) [#/Vol] 0.9 10*3/uL Low 1.0 - 4.3 10*3/uL [facility] Lymphocytes/100 WBC (Bld) 21.8 % 15.0 - 45.0 % [facility] MCH (RBC) [Entitic mass] 29.9 pg 26. 0 - 34.0 pg [facility] MCHC (RBC) [Mass/Vol] 31.2 % 30.5 - 36.0 % [facility] MCV (RBC) [Entitic vol] 95.7 fL 77.0 - 99.0 fL [facility] Monocytes (Bld) [#/Vol] 0.5 10*3/uL 0.0 - 0.9 10*3/uL [facility] Monocytes/100 WBC (Bld) 11.3 % 5.0 - 13.0 % [facility] Neutrophils (Bld) [#/Vol] 2.6 10*3/uL 1.8 - 7.5 10*3/uL [facility] Neutrophils/100 WBC (Bld) 61.1 % 38.0 - 82.0 % [facility] Nucleated RBC/100 WBC (Bld) [Ratio] 0.0 % [facility] Platelet mean volume (Bld) [Entitic vol] 10.5 fL 9.0 - 12.7 fL [facility] Platelets (Bld) [#/Vol] 173 10*3/uL 140 - 440 10*3/uL [facility] RBC (Bld) [#/Vol] 3.48 10*6/uL Low 4.40 - 5.9 0 10*6/uL [facility] WBC (Bld) [#/Vol] 4.3 10*3/uL 3.6 - 10.7 10*3/uL [facility] CBC WITH AUTO DIFFERENTIALon 12-01-2023 Basophils (Bld) [#/Vol] 0.0 10*3/uL Normal 0.0-0.2 [facility] Comment on above: Performed By: #### L [id number] ####Academic Intern: SWATI RATLIFF ([id number])[facility] [place] [address] Basophils/100 WBC (Bld) 0.5 % Normal 0.0-2.0 [facility] Comment on above: Performed By: #### L [id number] ####Academic Intern: SWATI RATLIFF ([id number])[facility])[address] [place] [address] Eosinophils (Bld) [#/Vol] 0.2 10*3/uL Normal 0.0-0.5 [facility] Comment on above: Performed By: #### L [id number] ####Academic Intern: SWATI RATLIFF ([id number])[facility])[address] [place] [address] Eosinophils/100 WBC (Bld) 5.1 % Normal 0.0-6.0 [facility] Comment on above: Performed By: #### L [id number] ####Academic Intern: SWATI RATLIFF ([id number])[facility] [place] [address] Erythrocyte distribution width (RBC) [Ratio] 15.7 % High 11.5-15.0 [facility] Comment on above: Performed By: #### L [id number] ####Academic Intern: SWATI RATLIFF ([id number])[facility])[address] [place] [address] Hematocrit (Bld) [Volume fraction] 33.3 % Low 40.0-52.0 [facility] Comment on above: Performed By: #### L [id number] ####Academic Intern: SWATI RATLIFF ([id number])[facility])[address] [place] [address] Hemoglobin (Bld) [Mass/Vol] 10.4 g/dL Low 13.0-18.0 [facility] Comment on above: Performed By: #### L [id number] ####Academic Intern: SWATI RATLIFF ([id number])[facility])[address] [place] [address] IMMATURE GRANS % 0.2 % Normal 0.0-2.0 [facility] Comment on above: Performed By: #### L [id number] ####Academic Intern: SWATI RATLIFF ([id number])[address] IMMATURE GRANS ABSOLUTE 0.0 10*3/uL Normal <0.1 [facility] Comment on above: Performed By: #### L [id number] ####Academic Intern: SWATI RATLIFF ([id number])[facility])[address] [place] [address] Lymphocytes (Bld) [#/Vol] 0.9 10*3/uL Low 1.0-4.3 [facility] Comment on above: Performed By: #### L [id number] ####Academic Intern: SWATI RATLIFF ([id number])[facility])[address] [place] [address] Lymphocytes/100 WBC (Bld) 21.8 % Normal 15.0-45.0 [facility] Comment on above: Performed By: #### L [id number] ####Academic Intern: SWATI RATLIFF ([id number])[facility] [place] [address] MCH (RBC) [Entitic mass] 29.9 pg Normal 26.0-34.0 [facility] Comment on above: Performed By: #### L [id number] ####Academic Intern: SWATI RATLIFF ([id number])[facility])[address] [place] [address] MCHC 31.2 % Normal 30.5-36.0 [facility] Comment on above: Performed By: #### L [id number] ####Academic Intern: SWATI RATLIFF ([id number])[facility])[address] [place] [address] MCV (RBC) [Entitic vol] 95.7 fL Normal 77.0-99.0 [facility] Comment on above: Performed By: #### L [id number] ####Academic Intern: SWATI RATLIFF ([id number])[facility])[address] [place] [address] Monocytes (Bld) [#/Vol] 0.5 10*3/uL Normal 0.0-0.9 [facility] Comment on above: Performed By: #### L [id number] ####Academic Intern: SWATI RATLIFF ([id number])[facility])[address] [place] [address] Monocytes/100 WBC (Bld) 11.3 % Normal 5.0-13.0 [facility] Comment on above: Performed By: #### L [id number] ####Academic Intern: SWATI RATLIFF ([id number])[facility])[address] [place] [address] NEUTROPHILS ABSOLUTE 2.6 10*3/uL Normal 1.8-7.5 [facility] Comment on above: Performed By: #### L [id number] ####Academic Intern: SWATI RATLIFF ([id number])[facility])[address] [place] [address] Neutrophils/100 WBC (Bld) 61.1 % Normal 38.0-82.0 [facility] Comment on above: Performed By: #### L [id number] ####Academic Intern: SWATI RATLIFF ([id number])[facility])[address] [place] [address] NRBC 0.0 /100 WBCs Normal 0.0-2.0 [facility] Comment on above: Performed By: #### L [id number] ####Academic Intern: SWATI RATLIFF ([id number])[facility] [place] [address] Platelet mean volume (Bld) [Entitic vol] 10.5 fL Normal 9.0-12.7 [facility] Comment on above: Performed By: #### L [id number] ####Academic Intern: SWATI RATLIFF ([id number])[facility] [place] [address] Platelets (Bld) [#/Vol] 173 10*3/uL Normal 140-440 [facility] Comment on above: Performed By: #### L [id number] ####Academic Intern: SWATI RATLIFF ([id number])[facility] [place] [address] RBC (Bld) [#/Vol] 3.48 10*6/uL Low 4.40-5.90 [facility] Comment on above: Performed By: #### L [id number] ####Academic Intern: SWATI RATLIFF ([id number])[facility] [place] [address] WBC (Bld) [#/Vol] 4.3 10*3/uL Normal 3.6-10.7 [facility] Comment on above: Performed By: #### L [id number] ####Academic Intern: SWATI RATLIFF ([id number])[facility] [place] [address] COMPREHENSIVE METABOLIC PANE Cricket 12-01-2023 Albumin [Mass/Vol] 3.2 g/dL Low 3.5-5.0 [facility] Comment on above: Performed By: #### L [id number] ####Academic Intern: SWATI RATLIFF ([id number])[facility] [place] [address] ALP [Catalytic activity/Vol] 80 U/L Normal 38-126 [facility] Comment on above: Performed By: #### L [id number] ####Academic Intern: SWATI RATLIFF ([id number])[facility] [place] [address] ALT [Catalytic activity/Vol] 15 U/L Normal 0-49 [facility] Comment on above: Performed By: #### L [id number] ####Academic Intern: SWATI RATLIFF ([id number])[facility] [place] [address] Anion gap [Moles/Vol] 5 mmol/L Normal 3-13 [facility] Comment on above: Performed By: #### L [id number] ####Academic Intern: SWATI RATLIFF ([id number])[facility] [place] [address] AST [Catalytic activity/Vol] 20 U/L Normal 15-46 [facility] Comment on above: Performed By: #### L [id number] ####Academic Intern: SWATI RATLIFF ([id number])[facility] [place] [address] Bilirubin [Mass/Vol] 0.5 mg/dL Normal 0.2-1.3 [facility] Comment on above: Performed By: #### L [id number] ####Academic Intern: SWATI RATLIFF ([id number])[facility] [place] [address] Calcium [Mass/Vol] 8.6 mg/dL Normal 8.4-10.4 [facility] Comment on above: Performed By: #### L [id number] ####Academic Intern: SWATI RATLIFF ([id number])[facility] [place] [address] Chloride [Moles/Vol] 114 mmol/L High 98-107 [facility] Comment on above: Performed By: #### L [id number] ####Academic Intern: SWATI RATLIFF ([id number])[facility] [place] [address] [place] CO2 [Moles/Vol] 19 mmol/L Low 22-30 [facility] Comment on above: Performed By: #### L [id number] ####Academic Intern: SWATI RATLIFF ([id number])[facility] [place] [address] Creatinine [Mass/Vol] 1.08 mg/dL Normal 0.66-1.25 [facility] Comment on above: Performed By: #### L [id number] ####Academic Intern: SWATI RATLIFF ([id number])[facility] [place] [address] GLOMERULAR FILTRATION RATE ML/MIN/1.73 SQ M.PREDICTED 75.2 mL/min/1.73m*2 Normal >60.0 [facility] Comment on above: Result Comment: Calc ulation based on the Chronic Kidney Disease Epidemiology Collaboration (CKD-EPI) equation refit without adjustment for race Performed By: #### L [id number] ####Academic Intern: SWATI RATLIFF ([id number])[facility] [place] [address] [place] Glucose [Mass/Vol] 137 mg/dL High 70-100 [facility] Comment on above: Performed By: #### L [id number] ####Academic Intern: SWATI RATLIFF ([id number])[facility])[address] [place] [address] Potassium [Moles/Vol] 4.1 mmol/L Normal 3.5-5.1 [facility] Comment on above: Performed By: #### L [id number] ####Academic Intern: SWATI RATLIFF ([id number])[facility] [place] [address] Protein [Mass/Vol] 5.6 g/dL Low 6.3-8.2 [facility] [facility] Comment on above: Performed By: #### L AB17 ####Academic Intern: SWATI RATILFF ([id number])[facility] [place] [address] Sodium [Moles/Vol] 138 mmol/L Normal 135-145 [facility] Comment on above: Performed By: #### L AB17 ####Academic Intern: SWATI RATLIFF ([id number])[facility] [place] [address] Urea nitrogen [Mass/Vol] 25 mg/dL High 9-20 [facility] Comment on above: Performed By: #### L AB17 ####Academic Intern: SWATI RATLIFF ([id number])[facility] [place] [address] Comprehensive metabolic 1998 panelon 12-01-2023 Albumin [Mass/Vol] 3.2 g/dL Low 3.5 - 5.0 g/dL [facility] ALP [Catalytic activity/Vol] 80 U/L 38 - 126 U/L [facility] ALT [Catalytic activity/Vol] 15 U/L 0 - 49 U/L [facility] Anion gap [Moles/Vol] 5 mmol/L 3 - 13 mmol/L [facility] AST [Catalytic activity/Vol] 20 U/L 15 - 46 U/L [facility] Bilirubin [Mass/Vol] 0.5 mg/dL 0.2 - 1 .3 mg/dL [facility] Calcium [Mass/Vol] 8.6 mg/dL 8.4 - 10. 4 mg/dL [facility] Chloride [Moles/Vol] 114 mmol/L High 98 - 10 7 mmol/L [facility] CO2 [Moles/Vol] 19 mmol/L Low 22 - 30 mmol/L [facility] Creatinine [Mass/Vol] 1.08 mg/dL 0.66 - 1.25 mg/dL [facility] GFR/1.73 sq M.predicted (S/P/Bld) [Vol rate/Area] 75.2 mL/min - PINF [facility] Comment on above: Calculation based on the Chronic Kidney Disease Epidemiology Collaboration (CKD-EPI) equation refit without adjustment for race Glucose [Mass/Vol] 137 mg/dL High 70 - 100 mg/dL [facility] Interpretation and review of laboratory results Abnormal [facility] Potassium [Moles/Vol] 4.1 mmol/L 3.5 - 5.1 mmol/L [facility] Protein [Mass/Vol] 5.6 g/dL Low 6.3 - 8.2 g/dL [facility] Sodium [Moles/Vol] 138 mmol/L 135 - 145 mmol/L [facility] Urea nitrogen [Mass/Vol] 25 mg/dL High 9 - 20 mg/dL [facility] IDNon 12-01-2023 IDN Normal [facility] Laboratory - Chemistry and C hemistry - challengeon 12-01-2023 Glucose [Mass/Vol] 276 mg/dL High 70 - 100 mg/dL [facility] Glucose [Mass/Vol] 74 mg/dL 70 - 100 mg/dL [facility] Glucose [Mass/Vol] 156 mg/dL High 70 - 100 mg/dL [facility] Glucose [Mass/Vol] 124 mg/dL High 70 - 100 mg/dL [facility] MR Brain WO and W contrast Tracie Cole 12-01-2023 [facility] 1955 [id number] Exam Date/Time: 12/01/2023 12:30 Procedure: MR BRAIN [...] sinuses. Mastoid air cells: Normal. Orbits: Normal. [facility] Amadeo Luciano MD - 12/01/2023 [facility] Name: [facility] 1955 [id number] Exam Date/Time: 12/01/2023 12:30 Procedure: MR BRAIN [...] arteries: There is origin of the right [employer] APPRAISER. Otherwise, unremarkable. Anterior communicating artery: Unremarkable. Posterior communicating arteries: Robustness of the right posterior communicating artery is present, in keeping with origin of the right [employer] EQUIPMENT APPRAISER. Otherwise, unremarkable. Aneurysm or vascular malformation: None [...] Electronically Signed Date/Time: 12/01/2023 1:27 PM EDT [facility]RA Head vessels WO contrast on 12-01-2023 [...] sinuses. Mastoid air cells: Normal. Orbits: Normal. [facility] Amadeo Luciano MD - 12/01/2023 [...] arteries: There is origin of the right [employer] EQUIPMENT APPRAISER. Otherwise, unremarkable. Anterior communicating artery: Unremarkable. Posterior communicating arteries: Robustness of the right posterior communicating artery is present, in keeping with origin of the right [employer]URN[employer] EQUIPMENT APPRAISER. Otherwise, unremarkable. Aneurysm or vascular malformation: None [...] Electronically Signed Date/Time: 12/01/2023 1:27 PM EDT [facility] Neck [facility] WO and W co ntrast Marisa 12-01-2023 Patient Name: JAMES REYES : 1955 Exam Date/Time: 12/01/2023 12:30 Procedure: MR NECK [...] sinuses. Mastoid air cells: Normal. Orbits: Normal. [facility] Amadeo Luciano MD - 12/01/2023 [facility]: [facility] 1955 [id number] Exam Date/Time: 12/01/2023 12:30 Procedure: MR NECK [...] arteries: There is origin of the right [employer] E[employer]IPMENT APPRAISER. Otherwise, unremarkable. Anterior communicating artery: Unremarkable. Posterior communicating arteries: Robustness of the right posterior communicating artery is present, in keeping with origin of the right [employer] EQUIPMENT APPRAISER. Otherwise, unremarkable. Aneurysm or vascular malformation: None [...] Electronically Signed Date/Time: 12/01/2023 1:27 PM EDT [facility] No Panel Informationon 11-30 Interpretation and review of laboratory results Abnormal [facility] Performed by: [employer] [facility], [address] [place] [address] CLIA ID: [id number] [employer] Interpretation and review of laboratory results Normal [facility] Performed by: [employer] [facility], [address] [place] [address] CLIA ID: [id number] [employer] 1. Diminished cerebr al volume and evidence [...] arteries: There is origin of the right [employer] EQUIPMENT APPRAISER. Otherwise, unremarkable. Anterior communicating artery: Unremarkable. Posterior communicating arteries: Robustness of the right posterior communicating artery is present, in keeping with origin of the right [employer] EQUIPMENT APPRAISER. Otherwise, unremarkable. Aneurysm or vascular malformation: None [...] Electronically Signed Date/Time: 12/01/2023 1:27 PM EDT [facility] Interpretation and review of laboratory results Abnormal [facility] Performed by: [facility] [employer] [facility], [address] [place] [address] CLIA ID: [id number] [facility] Radiology Study observation (narrative) [facility] Interpretation and review of laboratory results Abnormal [facility] Performed by: [facility] [employer] [facility], [address] [place] [address] CLIA ID: [id number] [facility] No Panel InformationOrdered By: Amadeo Luciano on 12-01-2023 [facility] Work Phone: Progress Noteon 12-01-2023 Progress Note Normal [facility] Progress Note Nutrition rescreen completed. Patient referred to the Dietitian due to DM uncontrolled (HgA1c = 8.5). RAGHAV Lopez Normal [facility] Progress Note Normal [facility] Progress Note Normal [facility] CARECOORDon 11-30-2023 CARECOORD Normal [facility] CARECOORD Spoke to Oralia MEDINA. Pt follows with PCP Dr.[facility] [phone] Normal [facility] CBC (HEMOGRAM)on 11-30-2023 Erythrocyte distribution width (RBC) [Ratio] 15.6 % High 11.5-15.0 [facility] Comment on above: Performed By: #### L [id number] ####Academic Intern: SWATI RATLIFF ([id number])[facility] [place] [address] Hematocrit (Bld) [Volume fraction] 34.5 % Low 40.0-52.0 [facility] Comment on above: Performed By: #### L AB294 ####Academic Intern: SWATI RATLIFF ([id number])[facility] [place] [address] Hemoglobin (Bld) [Mass/Vol] 10.9 g/dL Low 13.0-18.0 [facility] Comment on above: Performed By: #### L AB294 ####Academic Intern: SWATI RATLIFF ([id number])[address] MCH (RBC) [Entitic mass] 30.6 pg Normal 26.0-34.0 [facility] Comment on above: Performed By: #### L AB294 ####Academic Intern: SWATI RATLIFF ([id number])[facility])[address] [place] [address] MCHC 31.6 % Normal 30.5-36.0 [facility] Comment on above: Performed By: #### L AB294 ####Academic Intern: SWATI RATLIFF ([id number])[facility] [place] [address] MCV (RBC) [Entitic vol] 96.9 fL Normal 77.0-99.0 [facility] Comment on above: Performed By: #### L AB294 ####Academic Intern: SWATI RATLIFF ([id number])[facility])[address] [place] [address] Platelet mean volume (Bld) [Entitic vol] 10.4 fL Normal 9.0-12.7 [facility] Comment on above: Performed By: #### L AB294 ####Academic Intern: SWATI RATLIFF ([id number])[facility])[address] [place] [address] Platelets (Bld) [#/Vol] 191 10*3/uL Normal 140-440 [facility] Comment on above: Performed By: #### L AB294 ####Academic Intern: SWATI RATLIFF ([id number])[facility] [place] [address] RBC (Bld) [#/Vol] 3.56 10*6/uL Low 4.40-5.90 [facility] Comment on above: Performed By: #### L AB294 ####Academic Intern: SWATI RATLIFF ([id number])[facility])[address] [place] [address] WBC (Bld) [#/Vol] 5.1 10*3/uL Normal 3.6-10.7 [facility] Comment on above: Performed By: #### L AB294 ####Academic Intern: SWATI RATLIFF ([id number])[facility])[address] [place] [address] CBC panel Auto (Bld)on 11-29 Erythrocyte distribution width (RBC) [Ratio] 15.6 % High 11.5 - 15.0 % [facility] Hematocrit (Bld) [Volume fraction] 34.5 % Low 40.0 - 52.0 % [facility] Hemoglobin (Bld) [Mass/Vol] 10.9 g/dL Low 13.0 - 18.0 g/dL [facility] Interpretation and review of laboratory results Abnormal [facility] MCH (RBC) [Entitic mass] 30.6 pg 26. 0 - 34.0 pg [facility] MCHC (RBC) [Mass/Vol] 31.6 % 30.5 - 36.0 % [facility] MCV (RBC) [Entitic vol] 96.9 fL 77.0 - 99.0 fL [facility] Platelet mean volume (Bld) [Entitic vol] 10.4 fL 9.0 - 12.7 fL [facility] Platelets (Bld) [#/Vol] 191 10*3/uL 140 - 440 10*3/uL [facility] RBC (Bld) [#/Vol] 3.56 10*6/uL Low 4.40 - 5.9 0 10*6/uL [facility] WBC (Bld) [#/Vol] 5.1 10*3/uL 3.6 - 10.7 10*3/uL [facility] COMPREHENSIVE METABOLIC PANE Cricket 11-30-2023 Albumin [Mass/Vol] 3.2 g/dL Low 3.5-5.0 [facility] Comment on above: Performed By: #### L AB17, [id number], LAB67, LAB18, LAB69, OHA004 ####Academic Intern: SWATI RATLIFF ([id number])[facility])[address] [place] [address] ALP [Catalytic activity/Vol] 81 U/L Normal 38-126 [facility] Comment on above: Performed By: #### L AB17, [id number], LAB67, LAB18, LAB69, [id number] ####Academic Intern: SWATI RATLIFF ([id number])[facility])[address] [place] [address] ALT [Catalytic activity/Vol] 13 U/L Normal 0-49 [facility] Comment on above: Performed By: #### L AB17, [id number], LAB67, LAB18, LAB69, FOI351 ####Academic Intern: SWATI RATLIFF ([id number])[facility])[address] [place] [address] Anion gap [Moles/Vol] 5 mmol/L Normal 3-13 [facility] Comment on above: Performed By: #### L AB17, [id number], LAB67, LAB18, LAB69, XFE450 ####Academic Intern: SWATI RATLIFF ([id number])[facility])[address] [place] [address] AST [Catalytic activity/Vol] 19 U/L Normal 15-46 [facility] Comment on above: Performed By: #### L AB17, [id number], LAB67, LAB18, LAB69, WOS325 ####Academic Intern: SWATI RATLIFF ([id number])[facility] [place] [address] Bilirubin [Mass/Vol] 0.5 mg/dL Normal 0.2-1.3 [facility] Comment on above: Performed By: #### L AB17, [id number], LAB67, LAB18, LAB69, [id number] ####Academic Intern: SWATI RATLIFF ([id number])[facility] [place] [address] Calcium [Mass/Vol] 8.8 mg/dL Normal 8.4-10.4 [facility] Comment on above: Performed By: #### L AB17, [id number], LAB67, LAB18, LAB69, YUW344 ####Academic Intern: SWATI RATLIFF ([id number])[facility] [place] [address] Chloride [Moles/Vol] 115 mmol/L High 98-107 [facility] Comment on above: Performed By: #### L AB17, [id number], LAB67, LAB18, LAB69, ZWN524 ####Academic Intern: SWATI RATLIFF ([id number])[facility] [place] [address] CO2 [Moles/Vol] 19 mmol/L Low 22-30 [facility] Comment on above: Performed By: #### L AB17, [id number], LAB67, LAB18, LAB69, KMI336 ####Academic Intern: SWATI RATLIFF ([id number])[facility] [place] [address] Creatinine [Mass/Vol] 1.05 mg/dL Normal 0.66-1.25 [facility] Comment on above: Performed By: #### L AB17, [id number], LAB67, LAB18, LAB69, GMG505 ####Academic Intern: SWATI RATLIFF ([id number])[facility] [place] [address] [place] GLOMERULAR FILTRATION RATE ML/MIN/1.73 SQ M.PREDICTED 77.8 mL/min/1.73m*2 Normal >60.0 [facility] Comment on above: Result Comment: Calc ulation based on the Chronic Kidney Disease Epidemiology Collaboration (CKD-EPI) equation refit without adjustment for race Performed By: #### L AB17, IWR016, LAB67, LAB18, LAB69, RCH014 ####Academic Intern: SWATI RATLIFF ([id number])[facility])[address] [place] [address] Glucose [Mass/Vol] 121 mg/dL High 70-100 [facility] Comment on above: Performed By: #### L AB17, [id number], LAB67, LAB18, LAB69, DYF307 ####Academic Intern: SWATI RATLIFF ([id number])[facility])[address] [place] [address] Potassium [Moles/Vol] 3.9 mmol/L Normal 3.5-5.1 [facility] Comment on above: Performed By: #### L AB17, [id number], LAB67, LAB18, LAB69, RNP513 ####Academic Intern: SWATI RATLIFF ([id number])[facility])[address] [place] [address] Protein [Mass/Vol] 5.7 g/dL Low 6.3-8.2 [facility] Comment on above: Performed By: #### L AB17, [id number], LAB67, LAB18, LAB69, SOO293 ####Academic Intern: SWATI RATLIFF ([id number])[facility])[address] [place] [address] [place] Sodium [Moles/Vol] 138 mmol/L Normal 135-145 [facility] Comment on above: Performed By: #### L AB17, PMU441, LAB67, LAB18, LAB69, DMU741 ####Academic Intern: SWATI RATLIFF ([id number])[facility])[address] [place] [address] [place] Urea nitrogen [Mass/Vol] 27 mg/dL High 9-20 [facility] Comment on above: Performed By: #### L AB17, GIF079, LAB67, LAB18, LAB69, WGT653 ####Academic Intern: SWATI RATLIFF ([id number])[facility] [place] [address] Cobalamin (Vitamin B12) [Mas s/Vol]on 11-30-2023 Interpretation and review of laboratory results Abnormal [facility] Comprehensive metabolic 1998 panelon 11-30-2023 Albumin [Mass/Vol] 3.2 g/dL Low 3.5 - 5.0 g/dL [facility] ALP [Catalytic activity/Vol] 81 U/L 38 - 126 U/L [facility] ALT [Catalytic activity/Vol] 13 U/L 0 - 49 U/L [facility] Anion gap [Moles/Vol] 5 mmol/L 3 - 13 mmol/L [facility] AST [Catalytic activity/Vol] 19 U/L 15 - 46 U/L [facility] Bilirubin [Mass/Vol] 0.5 mg/dL 0.2 - 1 .3 mg/dL [facility] Calcium [Mass/Vol] 8.8 mg/dL 8.4 - 10. 4 mg/dL [facility] Chloride [Moles/Vol] 115 mmol/L High 98 - 10 7 mmol/L [facility] CO2 [Moles/Vol] 19 mmol/L Low 22 - 30 mmol/L [facility] Creatinine [Mass/Vol] 1.05 mg/dL 0.66 - 1.25 mg/dL [facility] GFR/1.73 sq M.predicted (S/P/Bld) [Vol rate/Area] 77.8 mL/min - PINF [facility] Comment on above: Calculation based on the Chronic Kidney Disease Epidemiology Collaboration (CKD-EPI) equation refit without adjustment for race Glucose [Mass/Vol] 121 mg/dL High 70 - 100 mg/dL [facility] Potassium [Moles/Vol] 3.9 mmol/L 3.5 - 5.1 mmol/L [facility] Protein [Mass/Vol] 5.7 g/dL Low 6.3 - 8.2 g/dL [facility] Sodium [Moles/Vol] 138 mmol/L 135 - 145 mmol/L [facility] Urea nitrogen [Mass/Vol] 27 mg/dL High 9 - 20 mg/dL [facility] Consulton 11-30-2023 Consult Normal [facility] ECG 12-LEADon 11-30-2023 ECG 12-LEAD IMPRESSION: Sinus rhythm Prolonged ID interval Nonspecific IVCD with LAD Abnormal T, consider ischemia, lateral leads Compared to ECG 04/24/23 No significant change Electronically Signed On 11-30-2023 00:44:00 EDT by Sergio Ruff Normal [facility] FOLATEon 11-30-2023 FOLATE RESULT 3.7 ng/mL Normal >=2.9 [facility] Comment on above: Performed By: #### L AB17, [id number], LAB67, LAB18, LAB69, GYL251 ####Academic Intern: SWATI RATLIFF ([id number])[facility])[address] [place] [address] Folate [Mass/Vol]on 11-30-19 Interpretation and review of laboratory results Normal [facility] HEMOGLOBIN A1Con 11-30-2023 Glucose [Mass/Vol] 197 mg/dL Normal [facility] Comment on above: Performed By: #### L AB90 ####Academic Intern: SWATI RATLIFF ([id number])[facility] [place] [address] HbA1c (Bld) [Mass fraction] 8.5 % High <5.7 [facility] Comment on above: Result Comment: Norm al less than 5.7%Prediabetes 5.7% to 6.4%Diabetes 6.5% or higher--HgbA1C levels may not be accurate in patients who have renal disease, received recent blood transfusions, are anemic, or who have dyshemoglobinemia. Performed By: #### L AB90 ####Academic Intern: SWATI RATLIFF ([id number])[facility])[address] [place] [address] [place] IDNon 11-30-2023 IDN Normal [facility] LIPID PANELon 11-30-2023 Cholesterol [Mass/Vol] 108 mg/dL Normal <200 [facility] Comment on above: Performed By: #### L AB17, [id number], LAB67, LAB18, LAB69, UVN530 ####Academic Intern: SWATI RATLIFF ([id number])[facility])[address] [place] [address] Cholesterol in HDL [Mass/Vol] 42 mg/dL Normal 40-60 [facility] Comment on above: Performed By: #### L AB17, VHM857, LAB67, LAB18, LAB69, IEP547 ####Academic Intern: SWATI RATLIFF ([id number])[facility])[address] [place] [address] Cholesterol.total/Choles terol in HDL [Mass ratio] 3 {ratio} Normal [facility] Comment on above: Result Comment: Ref Range:< 3 Low Risk for CHD3-6 Mod Risk for CHD> 6 High Risk for CHD Performed By: #### L AB17, [id number], LAB67, LAB18, LAB69, MOY042 ####Academic Intern: SWATI RATLIFF ([id number])[facility])[address] [place] [address] LOW DENSITY LIPOPROTEIN 33 mg/dL Normal 0-<100 [facility] Comment on above: Performed By: #### L AB17, [id number], LAB67, LAB18, LAB69, VWS996 ####Academic Intern: SWATI RATLIFF ([id number])[facility])[address] [place] [address] Triglyceride [Mass/Vol] 166 mg/dL High <150 [facility] Comment on above: Performed By: #### L AB17, PHH431, LAB67, LAB18, LAB69, GPW674 ####Academic Intern: SWATI RATLIFF ([id number])[facility] [place] [address] Laboratory - Chemistry and C hemistry - challengeon 11-30-2023 Glucose [Mass/Vol] 200 mg/dL High 70 - 100 mg/dL [facility] Glucose [Mass/Vol] 139 mg/dL High 70 - 100 mg/dL [facility] Glucose [Mass/Vol] 124 mg/dL High 70 - 100 mg/dL [facility] Cobalamin (Vitamin B12) [Mass/Vol] 167 pg/mL Low 239 - 931 pg/mL [facility] Folate [Mass/Vol] 3.7 ng/mL 2.9 - PINF ng/mL [facility] TSH Qn 1.209 m[IU]/[facility] Gl[facility] [Mass/Vol] 139 mg/dL High 70 - 100 mg/dL [facility] Troponin I.cardiac [Mass/Vol] ng/mL NINF - 0.034 ng/mL [facility] Average glucose Estimated from glycated hemoglobin (Bld) [Mass/Vol] 197 mg/dL [facility] Troponin I.cardiac [Mass/Vol] ng/mL NINF - 0.034 ng/mL [facility] Laboratory - Hematology and Cell countson 11-30-2023 HbA1c (Bld) [Mass fraction] 8.5 % High NINF - 5.7 % [facility] Comment on above: Normal less than 5.7 % Prediabetes 5.7% to 6.4% Diabetes 6.5% or higher --HgbA1C levels may not be accurate in patients who have renal disease, received recent blood transfusions, are anemic, or who have dyshemoglobinemia. Lipid 1996 panelon 4 Cholesterol [Mass/Vol] 108 mg/dL NINF - 200 mg/dL [facility] Cholesterol in HDL [Mass/Vol] 42 mg/dL 40 - 60 mg/dL [facility] Cholesterol in LDL [Mass/Vol] 33 mg/dL 0 - <100 [facility] Cholesterol.total/Choles terol in HDL [Mass ratio] 3 {ratio} [facility] Comment on above: Ref Range: < 3 Low Risk for CHD 3-6 Mod Risk for CHD > 6 High Risk for CHD Triglyceride [Mass/Vol] 166 mg/dL High NINF - 150 mg/dL [facility] No Panel Informationon 11-29 Interpretation and review of laboratory results Abnormal [facility] Performed by: [facility], [address] [place] [address] CLIA ID: [id number] [facility] Interpretation and review of laboratory results Abnormal [facility] Performed by: [facility], [address] [place] [address] CLIA ID: [id number] [facility] Interpretation and review of laboratory results Abnormal [facility] Performed by: [facility], [address] [facility] [address] CLIA ID: [id number] [facility] Interpretation and review of laboratory results Abnormal [facility] Performed by: [facility], [address] [address] CLIA ID: [id number] [facility] Interpretation and review of laboratory results Abnormal [facility] Interpretation and review of laboratory results Abnormal [facility] P [place] 13 degrees [facility] ID Interval 230 ms [facility] QRS [place] -44 degrees [facility] [facility] QRSD Interval 126 ms [facility] QT Interval 457 ms [facility] QTC Interval 439 ms [facility] T Wave [place] 122 degrees [facility] Sinus rhythm Prolonged ID interval Nonspecific IVCD with LAD Abnormal T, consider ischemia, lateral leads Compared to ECG 04/24/23 No significant change Electronically Signed On 11-30-2023 00:44:00 EDT by Sergio Recinos D O - 11/30/2023 IMPRESSION: Sinus rhythm Prolonged ID interval Nonspecific IVCD with LAD Abnormal T, consider ischemia, lateral leads Compared to ECG 04/24/23 No significant change Electronically Signed On 11-30-2023 00:44:00 EDT by Sergio Ruff [facility] Nursing Noteon 11-30-2023 Nursing Note Wound Care arrived t o pt's room for Prevention consult, but pt not in room at present time. Will return as time permits. Please Voicera for any questions or concerns. Kaycee Ricardo, RN Normal [facility] Nursing Note Krissy from [place] called and states James needs to return to baseline before he can return to us, he is usually independent with ADL's and walks safely with his rollator. Krissy's direct line [phone]. Normal [facility] Progress Noteon 11-30-2023 Progress Note Normal [facility] Progress Note Normal [facility] Progress Note PHYSICAL THERAPY [facility] Name/MRN: James Reyes ([id number]) Date: 11/30/2023 Multiple attempts made throughout the day, pt receiving echo, lunch, and OOR. Will attempt as able. Kyle Moreland, PT Normal [facility] Progress Note Speech-Language Pathology Patient passed the Nursing Swallowing Screening and is on a Regular diet, Cardiac: Low fat, Low cholesterol. High Fiber, DEBBIE with Thin liquids. Completed speech orders as per stroke protocol. Normal [facility] Progress Note OCCUPATIONAL THERAPY [facility] Name/MRN: James Reyes ([id number]) Date: 11/30/2023 Performed chart review. Attempted OT eval 10:59 patient is getting Echo completed bedside. Will return to evaluate as schedule permits. Darlin Corea, OT Normal [facility] Progress Note Patient seen and examined at bedside. Refer to Dr. King H&P for further details. See new orders. Flori Strickland MD Division of Hospitalist Medicine [facility] Normal [facility] THYROID STIMULATING HORMONEo n 11-30-2023 THYROID STIMULATING HORMONE 1.209 uIU/mL Normal 0.465-4.680 [facility] Comment on above: Performed By: #### L [id number], [id number], LAB67, LAB18, LAB69, [id number] ####Academic Intern: SWATI RATLIFF ([id number])[facility] [place] [address] [place] TROPONIN Ion 11-30-2023 Troponin I.cardiac [Mass/Vol] ng/mL Normal <0.034 [facility] Comment on above: Result Comment: TAVO Nina COMMENTS:Patients with high levels of Biotin oral intake (ie >5 mg/day) may have falsely decreased Troponin levels. Performed By: #### L [id number], [id number], LAB67, LAB18, LAB69, [id number] ####Academic Intern: SWATI RATLIFF ([id number])[facility])[address] [place] [address] [place] TROPONIN, WITH SERIAL REFLEX on 11-30-2023 Troponin I.cardiac [Mass/Vol] ng/mL Normal <0.034 [facility] Comment on above: Result Comment: TAVO Nina COMMENTS:Patients with high levels of Biotin oral intake (ie >5 mg/day) may have falsely decreased Troponin levels. Performed By: #### L [id number] ####Academic Intern: SWATI RATLIFF ([id number])[facility] [place] [address] TSH Qnon 11-30-2023 Interpretation and review of laboratory results Normal [facility] Troponin I.cardiac [Mass/Vol ]on 11-30-2023 Interpretation and review of laboratory results Normal [facility] Patients with high levels of Biotin oral intake (ie >5 mg/day) may have falsely decreased Troponin levels. [facility] Interpretation and review of laboratory results Normal [facility] Patients with high levels of Biotin oral intake (ie >5 mg/day) may have falsely decreased Troponin levels. [facility] US Heart TransthoracicOrdere d By: Lenora Arzate on 11-30-2023 Ao Root Index 1.56 cm/m2 [facility] Work Phone: [phone] Aortic Root 3.9 cm [facility] Work Phone: [phone] Aortic Sinus Valsalva 3.9 cm [facility] Work Phone: [phone] Aortic Sinus Valsalva Index 1.56 cm/m2 [facility] Work Phone: [phone] Ascending [facility] Work Phone: [phone] Ascending Aorta Index 1.60 cm/m2 [facility] Work Phone: AV Area by Peak Velocity 1.7 cm2 [facility] Work Phone: [phone] AV Area by VTI 1.6 cm2 [facility] Work Phone: [phone] AV Mean Gradient 7 mmHg [facility] Work Phone: [phone] AV Mean Velocity 1.2 m/s [facility] Work Phone: [phone] AV Peak Gradient 11 mmHg [facility] Work Phone: AV Peak Velocity 1.7 m/s [facility] Work Phone: [phone] AV Velocity Ratio 0.65 [facility] Work Phone: [phone] AV VTI 42.4 cm [facility] Work Phone: KEN/BSA Peak Velocity 0.7 cm2/m2 [facility] ma [employer] Work Phone: [phone] KEN/BSA VTI 0.6 cm2/m2 [facility] Phone: [phone] E/E' Lateral 5.75 [facility] [employer] Phone: [phone] E/E' Ratio (Averaged) 7.80 [facility] [employer] Work Phone: [phone] E/E' Septal 9.86 [facility] [employer] Phone: [phone] EF BP 70 % 55 - 100 % [employer] Phone: [phone] Fractional Shortening 2D 31 % 28 - 44 % [employer] Phone: [phone] Interpretation and review of laboratory results Abnormal [employer] Phone: [phone] IVC Diameter 1.4 cm [employer] Phone: [phone] IVSd 1.3 cm Abnormal 0.6 - 1.0 cm [employer] Phone: [phone] LA Diameter 5.2 cm [employer] Phone: [phone] LA Size Index 2.08 cm/m2 [employer] Work Phone: [phone] LA Volume 2C 90 mL Abnormal 18 - 58 mL [employer] Phone: [phone] LA Volume 4C 112 mL Abnormal 18 - 58 mL [employer] Phone: [phone] LA Volume A/L 107 mL [employer] Work Phone: [phone] LA Volume BP 100 mL Abnormal 18 - 58 mL [employer] Phone: LA Volume Index 2C 36 mL/m2 Abnormal 16 - 34 mL/m2 [employer] Phone: LA Volume Index 4C 45 mL/m2 Abnormal 16 - 34 mL/m2 [employer] Phone: LA Volume Index A/L 43 mL/m2 16 - 34 mL/m2 [employer] Phone: LA Volume Index BP 40 ml/m2 Abnormal 16 - 34 ml/m2 [employer] Phone: LA/AO Root Ratio 1.33 [facility] Work Phone: LV E' Lateral Velocity 12 cm/s [facility] Work Phone: LV E' Septal Velocity 7 cm/s [facility] Work Phone: LV EDV A2C 184 mL [facility] Work Phone: LV EDV A4C 155 mL [facility] Work Phone: LV EDV BP 173 mL Abnormal 67 - 155 mL [facility] Work Phone: LV EDV Index A2C 74 mL/m2 [facility] Work Phone: LV EDV Index A4C 62 mL/m2 [facility] Work Phone: LV EDV Index BP 69 mL/m2 [facility] Work Phone: LV Ejection Fraction A2C 68 % [facility] Work Phone: LV Ejection Fraction A4C 71 % [facility] Work Phone: LV ESV A2C 58 mL [facility] Work Phone: LV ESV A4C 46 mL [facility] Work Phone: LV ESV BP 53 mL 22 - 58 mL [facility] Work Phone: LV ESV Index A2C 23 mL/m2 [facility] Work Phone: LV ESV Index A4C 18 mL/m2 [facility] Work Phone: LV ESV Index BP 21 mL/m2 [facility] Work Phone: LV Mass 2D 340.7 g Abnormal 88 - 224 g [facility] Work Phone: LV Mass 2D Index 136.3 g/m2 Abnormal 49 - 115 g/m2 [facility] Work Phone: LV RWT Ratio 0.44 [facility] Work Phone: LVIDd 5.9 cm 4.2 - 5.9 cm [facility] Work Phone: LVIDd Index 2.36 cm/m2 [facility] Work Phone: LVIDs 4.1 cm [facility] Work Phone: LVIDs Index 1.64 cm/m2 [facility] [employer] Work Phone: LVOT Area 2.5 cm2 [facility] [employer] Work Phone: LVOT Cardiac Output 4.3 liter/mi nut e [facility] [employer] Work Phone: LVOT Diameter 1.8 cm [facility] [employer] Work Phone: LVOT Mean Gradient 3 mmHg [facility] [employer] Work Phone: LVOT Peak Gradient 5 mmHg [facility] [employer] Work Phone: LVOT Peak Velocity 1.1 m/s [facility] [employer] Work Phone: LVOT Stroke Volume Index 27.7 mL/m2 [facility] [employer] Work Phone: LVOT SV 69.2 ml [facility] [employer] Work Phone: LVOT VTI 27.2 cm [facility] [employer] Work Phone: LVOT:AV VTI Index 0.64 [facility] ealth Work Phone: LVPWd 1.3 cm Abnormal 0.6 - 1.0 cm [facility] [employer] Work Phone: MV A Velocity 0.89 m/s [facility] [employer] Work Phone: MV E Velocity 0.69 m/s [facility] Work Phone: MV E Wave Deceleration Time 263.4 ms [facility] [employer] Work Phone: MV E/A 0.78 [facility] [employer] Work Phone: RA Area 4C 78.6 mL [facility] [employer] Work Phone: RV Free Wall Peak S' 12 cm/s [facility] Work Phone: Sinotubular Junction 3.0 cm [facility] Work Phone: TAPSE 2.0 cm 1.7 cm [employer] Work Phone: [employer] Work Phone: US Heart Transthoracicon Left Ventricle: [...] (Vitamin B12) [Mass/Vol] 167 pg/mL Low [phone] [employer] [facility] Comment on above: Performed By: #### L [id number], [id number], LAB67, LAB18, LAB69, [id number] ####Academic Intern: SWATI RATLIFF ([id number])[facility] [place] [address] Vital signson 11-30-2023 Heart rate 55 /min bpm [facility] XR ABDOMEN 1 VIEWon 11-30-19 24 XR ABDOMEN 1 VIEW Normal [facility] e[facility] System [facility] XR Abdomen Single viewon Nonobstructive bowel gas pattern. No metallic foreign body is identified within the visualized portion of the abdomen and pelvis. Report Dictated on Electronically Signed By: Melvin Scott MD Electronically Signed Date/Time: 11/30/2023 2:50 PM EDT [facility] Patient Name: JAMES REYES : 1955 [...] are degenerative changes of the lumbar spine. [facility] Melvin Scott MD - 11/30/2023 Patient Name: [...] Electronically Signed Date/Time: 11/30/2023 2:50 PM EDT [facility] Radiology Study observation (narrative) [facility] XR Abdomen Single viewOrdere d By: Melvin Scott on 11-30-2023 [facility] XR CHEST 1 VIEWon 11-30-2023 XR CHEST 1 VIEW Normal [facility] XR Chest Single viewon 11-29 Coarsening of the interstitial lung markings is likely chronic. No focal consolidation is identified. No metallic foreign body is identified within the chest. Report Dictated on Electronically Signed By: Melvin Scott MD Electronically Signed Date/Time: 11/30/2023 3:00 PM EDT [facility] Patient Name: JAMES REYES : 1955 [...] are degenerative changes of the thoracic spine. [facility] Melvin Scott MD - 11/30/2023 Patient [...] Electronically Signed Date/Time: 11/30/2023 3:00 PM EDT [employer] [facility] Radiology Study observation (narrative) [facility] CBC W Auto Differential pane l (Bld)on 11-29-2023 Basophils (Bld) [#/Vol] 0.0 10*3/uL 0.0 - 0.2 10*3/uL [employer] Basophils/100 WBC (Bld) 0.3 % 0.0 - 2.0 % [facility] [employer] Eosinophils (Bld) [#/Vol] 0.1 10*3/uL 0.0 - 0.5 10*3/uL [employer] Eosinophils/100 WBC (Bld) 2.0 % 0.0 - 6.0 % [employer] Erythrocyte distribution width (RBC) [Ratio] 15.6 % High 11.5 - 15.0 % [employer] Hematocrit (Bld) [Volume fraction] 36.9 % Low 40.0 - 52.0 % [employer] Hemoglobin (Bld) [Mass/Vol] 11.7 g/dL Low 13.0 - 18.0 g/dL [employer] Immature granulocytes (Bld) [#/Vol] 0.0 10*3/uL NINF - 0.1 10*3/uL [employer] Immature granulocytes/100 WBC (Bld) 0.3 % 0.0 - 2.0 % [facility] [employer] Interpretation and review of laboratory results Abnormal [facility] [employer] Lymphocytes (Bld) [#/Vol] 0.9 10*3/uL Low 1.0 - 4.3 10*3/uL [employer] Lymphocytes/100 WBC (Bld) 13.5 % Low 15.0 - 45.0 % [facility] [employer] MCH (RBC) [Entitic mass] 30.5 pg 26. 0 - 34.0 pg [facility] MCHC (RBC) [Mass/Vol] 31.7 % 30.5 - 36.0 % [facility] MCV (RBC) [Entitic vol] 96.1 fL 77.0 - 99.0 fL [facility] Monocytes (Bld) [#/Vol] 0.7 10*3/uL 0.0 - 0.9 10*3/uL [facility] Monocytes/100 WBC (Bld) 9.5 % 5.0 - 13.0 % [facility] Neutrophils (Bld) [#/Vol] 5.2 10*3/uL 1.8 - 7.5 10*3/uL [facility] Neutrophils/100 WBC (Bld) 74.4 % 38.0 - 82.0 % [facility] Nucleated RBC/100 WBC (Bld) [Ratio] 0.0 % [facility] Platelet mean volume (Bld) [Entitic vol] 10.3 fL 9.0 - 12.7 fL [facility] Comment on above: MPV is a calculated measurement using platelet volume ratio Platelets (Bld) [#/Vol] 219 10*3/uL 140 - 440 10*3/uL [facility] RBC (Bld) [#/Vol] 3.84 10*6/uL Low 4.40 - 5.9 0 10*6/uL [facility] WBC (Bld) [#/Vol] 7.0 10*3/uL 3.6 - 10.7 10*3/uL [facility] CBC WITH AUTO DIFFERENTIALon 11-29-2023 Basophils (Bld) [#/Vol] 0.0 10*3/uL Normal 0.0-0.2 [facility] Comment on above: Performed By: #### L [id number] ####Academic Intern: SWATI RATLIFF ([id number])[facility]ITAL[facility]OR[facility] ([address] Basophils/100 WBC (Bld) 0.3 % Normal 0.0-2.0 [facility] Comment on above: Performed By: #### L [id number] ####Academic Intern: SWATI RATLIFF ([id number])[employer] ([facility])[address] [place] [address] Eosinophils (Bld) [#/Vol] 0.1 10*3/uL Normal 0.0-0.5 [facility] Comment on above: Performed By: #### L [id number] ####Academic Intern: SWATI RATLIFF ([id number])[facility]ITALP[facility] [employer] ([facility])[address] [place] [address] [place] Eosinophils/100 WBC (Bld) 2.0 % Normal 0.0-6.0 [facility] Comment on above: Performed By: #### L [id number] ####Academic Intern: SWATI RATLIFF ([id number])[facility]ITALP[facility] ([facility])[address] [place] [address] Erythrocyte distribution width (RBC) [Ratio] 15.6 % High 11.5-15.0 [facility] Comment on above: Performed By: #### L [id number] ####Academic Intern: SWATI RATLIFF ([id number])[facility]ITALP[facility] [employer] ([facility])[address] [place] [address] Hematocrit (Bld) [Volume fraction] 36.9 % Low 40.0-52.0 [facility] Comment on above: Performed By: #### L [id number] ####Academic Intern: SWATI RATLIFF ([id number])[facility]ITALP[facility] ([facility])[address] [place] [address] Hemoglobin (Bld) [Mass/Vol] 11.7 g/dL Low 13.0-18.0 [facility] Comment on above: Performed By: #### L [id number] ####Academic Intern: SWATI RATLIFF ([id number])[facility]ITALP[facility] ([facility])[address] [place] [address] IMMATURE GRANS % 0.3 % Normal 0.0-2.0 [facility] Comment on above: Performed By: #### L [id number] ####Academic Intern: SWATI RATLIFF ([id number])[facility]ITALP[facility] ([facility])[address] [place] [address] IMMATURE GRANS ABSOLUTE 0.0 10*3/uL Normal <0.1 [facility] Comment on above: Performed By: #### L [id number] ####Academic Intern: SWATI RTALIFF ([id number])[facility]ITALP[facility] ([facility])[address] [place] [address] Lymphocytes (Bld) [#/Vol] 0.9 10*3/uL Low 1.0-4.3 [facility] Comment on above: Performed By: #### L [id number] ####Academic Intern: SWATI RATLIFF ([id number])[facility]ITALP[facility] [employer] ([facility])[address] [place] [address] Lymphocytes/100 WBC (Bld) 13.5 % Low 15.0-45.0 [facility] Comment on above: Performed By: #### L [id number] ####Academic Intern: SWATI RATLIFF ([id number])[facility]ITALP[facility] ([facility])[address] [place] [address] MCH (RBC) [Entitic mass] 30.5 pg Normal 26.0-34.0 [facility] Comment on above: Performed By: #### L [id number] ####Academic Intern: SWATI RATLIFF ([id number])[facility]ITALP[facility] ([facility])[address] [place] [address] MCHC 31.7 % Normal 30.5-36.0 [facility] Comment on above: Performed By: #### L [id number] ####Academic Intern: SWATI RATLIFF ([id number])[facility]ICOLE [facility] [employer] ([facility])[address] [place] [address] MCV (RBC) [Entitic vol] 96.1 fL Normal 77.0-99.0 [facility] Comment on above: Performed By: #### L [id number] ####Academic Intern: SWATI RATLIFF ([id number])[facility] [employer] ([facility])[address] [place] [address] [place] Monocytes (Bld) [#/Vol] 0.7 10*3/uL Normal 0.0-0.9 [facility] Comment on above: Performed By: #### L [id number] ####Academic Intern: SWATI RATLIFF ([id number])[facility] ([facility])[address] [place] [address] [place] Monocytes/100 WBC (Bld) 9.5 % Normal 5.0-13.0 [facility] Comment on above: Performed By: #### L [id number] ####Academic Intern: SWATI RATLIFF ([id number])[facility]ITALPrieto [employer] ([facility])[address] [place] [address] [place] NEUTROPHILS ABSOLUTE 5.2 10*3/uL Normal 1.8-7.5 [facility] Comment on above: Performed By: #### L [id number] ####Academic Intern: SWATI RATLIFF ([id number])[facility] [employer] ([facility])[address] [place] [address] [place] Neutrophils/100 WBC (Bld) 74.4 % Normal 38.0-82.0 [facility] Comment on above: Performed By: #### L [id number] ####Academic Intern: SWATI RATLIFF ([id number])[facility] [employer] ([facility])[address] [place] [address] [place] NRBC 0.0 /100 WBCs Normal 0.0-2.0 [facility] Comment on above: Performed By: #### L [id number] ####Academic Intern: SWATI RATLIFF ([id number])[facility] [employer] ([facility])[address] [place] [address] [place] Platelet mean volume (Bld) [Entitic vol] 10.3 fL Normal 9.0-12.7 [facility] Comment on above: Result Comment: MPV is a calculated measurement using platelet volume ratio Performed By: #### L [id number] ####Academic Intern: SWATI RATLIFF ([id number])[facility]ITALPrieto [facility] ([facility])[address] [place] [address] Platelets (Bld) [#/Vol] 219 10*3/uL Normal 140-440 [facility] Comment on above: Performed By: #### L [id number] ####Academic Intern: SWATI RATLIFF ([id number])[facility]ITALPrieto [employer] ([facility])[address] [place] [address] RBC (Bld) [#/Vol] 3.84 10*6/uL Low 4.40-5.90 [facility] Comment on above: Performed By: #### L [id number] ####Academic Intern: SWATI RATLIFF ([id number])[facility]ITALPrieto [employer] ([facility])[address] [place] [address] WBC (Bld) [#/Vol] 7.0 10*3/uL Normal 3.6-10.7 [facility] Comment on above: Performed By: #### L [id number] ####Academic Intern: SWATI RATLIFF ([id number])[facility]ITALPrieto [employer] ([facility])[address] [place] [address] COMPREHENSIVE METABOLIC PANE [employer] 11-29-2023 Albumin [Mass/Vol] 3.8 g/dL Normal 3.5-5.0 [facility] Comment on above: Performed By: #### L [id number], [id number] ####Academic Intern: SWATI RATLIFF ([id number])[facility]ITALPrieto [employer] ([facility])[address] [place] [address] ALP [Catalytic activity/Vol] 86 U/L Normal 38-126 [facility] Comment on above: Performed By: #### L [id number], [id number] ####Academic Intern: SWATI RATLIFF ([id number])[facility]ITALPrieto [employer] ([facility])[address] [place] [address] [place] ALT [Catalytic activity/Vol] 14 U/L Normal 0-49 [facility] Comment on above: Performed By: #### L [id number], [id number] ####Academic Intern: SWATI RATLIFF ([id number])[facility]ITALPrieto [employer] ([facility])[address] Anion gap [Moles/Vol] 5 mmol/L Normal 3-13 [facility] Comment on above: Performed By: #### L [id number], [id number] ####Academic Intern: SWATI RATLIFF ([id number])[facility]ITALP[facility] [employer] ([employer])[address] [place] [address] [place] AST [Catalytic activity/Vol] 20 U/L Normal 15-46 [facility] Comment on above: Performed By: #### L [id number], [id number] ####Academic Intern: SWATI RATLIFF ([id number])[facility]ITALPrieto [employer] ([facility])[address] [place] [address] [place] Bilirubin [Mass/Vol] 0.5 mg/dL Normal 0.2-1.3 [facility] Comment on above: Performed By: #### L [id number], [id number] ####Academic Intern: SWATI RATLIFF ([id number])[facility]ITALPrieto [place] [employer] ([facility])[address] Calcium [Mass/Vol] 9.2 mg/dL Normal 8.4-10.4 [facility] Comment on above: Performed By: #### L [id number], [id number] ####Academic Intern: SWATI RATLIFF ([id number])[facility]ITALPrieto [employer] ([employer])[address] [place] [address] [place] Chloride [Moles/Vol] 115 mmol/L High 98-107 [facility] Comment on above: Performed By: #### L [id number], [id number] ####Academic Intern: SWATI RATLIFF ([id number])[facility]ITALPrieto [employer] ([employer])[address] [place] [address] [place] CO2 [Moles/Vol] 21 mmol/L Low 22-30 [facility] Comment on above: Performed By: #### L [id number], [id number] ####Academic Intern: SWATI RATLIFF ([id number])[facility]ITALPri[facility] [employer] ([employer])[address] [place] [address] [place] Creatinine [Mass/Vol] 1.13 mg/dL Normal 0.66-1.25 [facility] Comment on above: Performed By: #### L [id number], [id number] ####Academic Intern: SWATI RATLIFF ([id number])[facility]ITALPrieto [employer] ([employer])[address] [place] [address] [place] GLOMERULAR FILTRATION RATE ML/MIN/1.73 SQ M.PREDICTED 71.2 mL/min/1.73m*2 Normal >60.0 [facility] Comment on above: Result Comment: Calc ulation based on the Chronic Kidney Disease Epidemiology Collaboration (CKD-EPI) equation refit without adjustment for race Performed By: #### L [id number], [id number] ####Academic Intern: SWATI RATLIFF ([id number])[facility] HOSPITALPrieto CRUZ RITTMAN (SWRLAB)[address] [place] [address] [place] Glucose [Mass/Vol] 93 mg/dL Normal 70-100 [facility] Comment on above: Performed By: #### L [id number], [id number] ####Academic Intern: SWATI RATLIFF ([id number])[facility] HOSPITALPrieto CRUZ RITTMAN (SWRLAB)[address] [place] [address] [place] Potassium [Moles/Vol] 4.1 mmol/L Normal 3.5-5.1 [facility] Comment on above: Performed By: #### L [id number], [id number] ####Academic Intern: SWATI RATLIFF ([id number])[facility] HOSPITALNANCY RITTMAN (SWRLAB)[address] Protein [Mass/Vol] 6.3 g/dL Normal 6.3-8.2 [facility] Comment on above: Performed By: #### L [id number], [id number] ####Academic Intern: SWATI RATLIFF ([id number])[facility] HOSPITALA NANCY RITTMAN (SWRLAB)[address] Sodium [Moles/Vol] 141 mmol/L Normal 135-145 [facility] Comment on above: Performed By: #### L [id number], LAB17 ####Academic Intern: SWATI RATLIFF ([id number])[facility]OS[facility]ITALA NANCY RITTMAN (SWRLAB)[address] Urea nitrogen [Mass/Vol] 30 mg/dL High 9-20 [facility] Comment on above: Performed By: #### L [id number], LAB17 ####Academic Intern: SWATI RATLIFF ([id number])[facility] HOSPITALPrieto CRUZ RITTMAN (SWRLAB)[address] [place] [address] [place] CERVICAL SPINE WO IV CONT RASTon 11-29-2023 CT CERVICAL SPINE WO IV CONTRAST Normal [facility] CT Cervical spine WO contras ton 11-29-2023 [facility] 1955 [id number] Exam Date/Time: 11/29/2023 18:06 Procedure: CT CERVICAL [...] Bilateral carotid calcifications, left greater than right. [facility] Primo Millan MD - 11/29/2023 Patient Name: [facility] 1955 [id number] Exam Date/Time: 11/29/2023 18:06 Procedure: CT CERVICAL [...] Electronically Signed Date/Time: 11/29/2023 6:28 PM EDT [facility] Radiology Study observation (narrative) Nicole Mathew alth CT HEAD WO IV CONTRASTon CT HEAD WO IV CONTRAST Normal [place] [facility] CT Head WO contraston 2023 Patient [...] Bilateral carotid calcifications, left greater than right. [facility] Primo Millan MD - 11/29/2023 Patient [...] Electronically Signed Date/Time: 11/29/2023 6:28 PM EDT [facility] Radiology Study observation (narrative) [facility] metabolic 1998 panelon 11-29-2023 Albumin [Mass/Vol] 3.8 g/dL 3.5 - 5.0 g/dL [facility] ALP [Catalytic activity/Vol] 86 U/L 38 - 126 U/L [facility] ALT [Catalytic activity/Vol] 14 U/L 0 - 49 U/L [facility] Anion gap [Moles/Vol] 5 mmol/L 3 - 13 mmol/L [facility] AST [Catalytic activity/Vol] 20 U/L 15 - 46 U/L [facility] Bilirubin [Mass/Vol] 0.5 mg/dL 0.2 - 1 .3 mg/dL [facility] Calcium [Mass/Vol] 9.2 mg/dL 8.4 - 10. 4 mg/dL [facility] Chloride [Moles/Vol] 115 mmol/L High 98 - 10 7 mmol/L [facility] CO2 [Moles/Vol] 21 mmol/L Low 22 - 30 mmol/L [facility] Creatinine [Mass/Vol] 1.13 mg/dL 0.66 - 1.25 mg/dL [facility] GFR/1.73 sq M.predicted (S/P/Bld) [Vol rate/Area] 71.2 mL/min - PINF [facility] Comment on above: Calculation based on the Chronic Kidney Disease Epidemiology Collaboration (CKD-EPI) equation refit without adjustment for race Glucose [Mass/Vol] 93 mg/dL 70 - 100 mg/dL [facility] Interpretation and review of laboratory results Abnormal [facility] Potassium [Moles/Vol] 4.1 mmol/L 3.5 - 5.1 mmol/L [facility] Protein [Mass/Vol] 6.3 g/dL 6.3 - 8.2 g/dL [facility] Sodium [Moles/Vol] 141 mmol/L 135 - 145 mmol/L [facility] Urea nitrogen [Mass/Vol] 30 mg/dL High 9 - 20 mg/dL [facility] ED Nursing Noteon 11-29-2023 ED Nursing Note Spoke to sister in [place], and advised that patient is being admitted to [facility] and EMS is on scene for transport Amelia Lopez RN 11/29/232335 [facility] ED Nursing Note Report to [facility] ambulance crew. Chart to crew for [facility]. Minda Quesada RN 11/29/23 2333 [facility] ED Nursing Note Report called to 4W Amelia ROACH @ [facility] Minda Quesada RN 11/29/23 231 [facility] ED Nursing Note Pt's sister in , [place], called to ask about pt. Ok to speak to her per pt. Advised about the fall earlier and now having dizziness. She will call back later to check about the results. [phone] Minda Quesada RN 11/29/232051 [facility] ED Nursing Note Pt identification officer light and states now he is feeling dizzy and lightheaded. Dr. Ruff notified Minda Quesada RN 11/29/231946 [facility] ED Nursing Note Normal [facility] ED Nursing Note Normal [facility] ED Nursing Note Pt'd continous gluco se monitor is going off. Reading 69. Finger stick glucose 84 on arrival. Minda Quesada RN 11/29/23 1611 Normal [facility] ED Nursing Note Normal [facility] ED Provider Noteon 4 ED Provider Note Normal [facility] Laboratory - Chemistry and C hemistry - challengeon 11-29-2023 Troponin I.cardiac [Mass/Vol] ng/mL NINF - 0.034 ng/mL [facility] Glucose [Mass/Vol] 101 mg/dL High 70 - 100 mg/dL [facility] Glucose [Mass/Vol] 84 mg/dL 70 - 100 mg/dL [facility] Laboratory - Coagulationon 0 11-29-2023 PT Coag (Bld) [Time] 10.9 s 9.0 - 1 2.0 s [facility] [employer] No Panel Informationon 11-28 Interpretation and review of laboratory results Abnormal [facility] Performed by: [facility], [address] [place] [address] CLIA ID: [id number] [facility] 1. No acute intracranial findings. Chronic ischemic and atrophic changes. 2. No acute compression deformity or apparent fracture in the cervical spine. Degenerative spondylosis. Report Dictated on Electronically Signed By: Primo Millan MD Electronically Signed Date/Time: 11/29/2023 6:28 PM EDT [facility] Interpretation and review of laboratory results Normal [facility]formed by: [facility], [address] [place] [address] CLIA ID: [id number] [facility] No Panel InformationOrdered By: Primo Millan on 11-29-2023 [facility] [employer] Work Phone: PROTHROMBIN TIMEon 4 INR Coag (PPP) [Relative time] 1.0 {INR} Normal 0.9-1.1 [facility] Comment on above: Result Comment: Lux [...] Myocardial Infarction Performed By: #### L [id number] ####Academic Intern: SWATI RATLIFF ([id number])[facility] HOSPITALRolladAN (SWRLAB)[address] [place] [address] PT Coag (PPP) [Time] 10.9 s Normal 9.0-12.0 [facility] [employer] [facility] Comment on above: Performed By: #### L [id number] ####Academic Intern: SWATI RATLIFF ([id number])[facility] HOSPITALRolladAN (SWRLAB)[address] [place] [address] PT Coag (Bld) [Time]on 11-28 INR Coag (PPP) [Relative time] 1.0 {INR} 0.9 - 1.1 [facility] Comment on above: Recommended Anticoag ulant Therapy: [...] Interpretation and review of laboratory results Normal [facility] TROPONIN, WITH SERIAL REFLEX on 11-29-2023 Troponin I.cardiac [Mass/Vol] ng/mL Normal <0.034 [facility] Comment on above: Result Comment: TAVO Nina COMMENTS:Patients with high levels of Biotin oral intake (ie >5 mg/day) may have falsely decreased Troponin levels. Performed By: #### L [id number], LAB17 ####Academic Intern: SWATI RATLIFF ([id number])[facility] [employer] (SWRLAB)[address] Troponin I.cardiac [Mass/Vol ]on 11-29-2023 Interpretation and review of laboratory results Normal [facility] Patients with high levels of Biotin oral intake (ie >5 mg/day) may have falsely decreased Troponin levels. [facility] Patient Instructionson 09-13 Second Class Welder Authentication Interface Message Text Dental extraction Instructions [...] done to speak with an oral surgeon. [facility] [phone]. HELPING THE HEALING PROCESS AND STOPPING THE [...] c (more content not included)... Normal [facility] Progress Noteson 09-14-2023 Second Class Welder Authentication Interface Message Text Attestation signed by Rony Arriaza DMD, MD at 10/11/2023 1:24 PM I was personally present for the white portions of the procedure. Rony Arriaza DMD, MD ORAL SURGERY PROCEDURE ROOM NOTE [facility] Surgical Product(s): Routine extraction teeth # 21, [...] Estimated blood loss: Minimal (<5 ml) Disposition: prison Referral placed for General Dentistry Jacqui Glass DDS Normal [facility] Progress Noteson 09-06-2023 Second Class Welder Authentication Interface Message Text Attestation signed by [...] with PMHx Coronary artery disease s/pCABG 2014, [facility]- showing patent GREY to the LAD 2017. 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] Low back [...] unspecified reason [Z91.199] Peripheral vascular disease, unspecified ([facility]) [I73.9] Personal history of COVID-19 [Z86.16] Pseudomonas aeruginosa infection [A49.8] Respiratory failure ([facility]) [J96.90] Shoulder pain, left [M25.512] Spondylosis without myelopathy [M47.819] Tobacco abuse [Z72.0] Type 2 diabetes mellitus treated with insulin ([facility]) [E11.9, Z79.4] 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 oxyCODONE-acetaminophen (ROXICET) [...] subcutaneou (more content not included)... 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 Normal [facility] Progress Noteon 08-21-2023 Progress Note Normal [facility] No Panel InformationOrdered By: Nayeli Martinez on 07-14-2023 Ascending Aorta 3.4 cm [facility] Work Phone: [phone] Ascending Aorta Index 1.38 cm/m2 [facility] Work Phone: [phone] AV Area by Peak Velocity 2.5 cm2 [facility] Work Phone: [phone] AV Area by VTI 2.8 cm2 [facility] Work Phone: [phone] AV Mean Gradient 4 mmHg [facility] Work Phone: [phone] AV Mean Velocity 0.9 m/s [facility] Work Phone: [phone] AV Peak Gradient 6 mmHg [facility] Work Phone: [phone] AV Peak Velocity 1.2 m/s [facility] Work Phone: [phone] AV Velocity Ratio 0.75 [facility] Work Phone: [phone] AV VTI 21.0 cm [facility] Work Phone: [phone] KEN/BSA Peak Velocity 1.0 cm2/m2 [facility] Work Phone: [phone] KEN/BSA VTI 1.1 cm2/m2 [facility] Work Phone: [phone] Baseline Diastolic BP 68 mmHg [facility] Work Phone: [phone] Baseline HR 71 bpm [facility] Work Phone: [phone] Depression 0 mm [place] [facility] Work Phone: [phone] Baseline Systolic BP 121 mmHg [facility] Work Phone: [phone] EF BP 64 % 55 - 100 % [facility] [employer] Work Phone: [phone] Exercise Duration Seconds 8 sec [facility] [employer] Work Phone: [phone] Exercise Duration Time 11 min [place] [facility] [employer] Work Phone: [phone] Fractional Shortening 2D 41 % 28 - 44 % [facility] [employer] Work Phone: [phone] Interpretation and review of laboratory results Abnormal [facility] [employer] Work Phone: [phone] IVSd 1.7 cm Abnormal 0.6 - 1.0 cm [facility] [employer] Work Phone: [phone] LA Volume 4C 94 mL Abnormal 18 - 58 mL [facility] [employer] Work Phone: LA Volume Index 4C 38 mL/m2 Abnormal 16 - 34 mL/m2 [facility] [employer] Work Phone: [phone] LV EDV A2C 41 mL [facility] [employer] Work Phone: [phone] LV EDV A4C 127 mL [facility] [employer] Work Phone: [phone] LV EDV BP 75 mL 67 - 155 mL [facility] [employer] Work Phone: LV EDV Index A2C 17 mL/m2 [facility] Work Phone: LV EDV Index A4C 51 mL/m2 [facility] Work Phone: [phone] LV EDV Index BP 30 mL/m2 [facility] Work Phone: LV Ejection Fraction A2C 71 % [facility] [employer] Work Phone: [phone] LV Ejection Fraction A4C 57 % [facility] Work Phone: [phone] LV ESV A2C 12 mL [facility] Work Phone: [phone] LV ESV A4C 55 mL [facility] Work Phone: [phone] LV ESV BP 27 mL 22 - 58 mL [facility] Work Phone: [phone] LV ESV Index A2C 5 mL/m2 [facility] Work Phone: [phone] LV ESV Index A4C 22 mL/m2 [facility] Work Phone: [phone] LV ESV Index BP 11 mL/m2 [facility] Work Phone: [phone] LV Mass 2D 309.6 g Abnormal 88 - 224 g [facility] Work Phone: [phone] LV Mass 2D Index 125.3 g/m2 Abnormal 49 - 115 g/m2 [facility] Work Phone: [phone] LV RWT Ratio 0.73 [facility] Work Phone: [phone] LVIDd 4.4 cm 4.2 - 5.9 cm [facility] Work Phone: [phone] LVIDd Index 1.78 cm/m2 [facility] Work Phone: [phone] LVIDs 2.6 cm [facility] Work Phone: [phone] LVIDs Index 1.05 cm/m2 [facility] Work Phone: [phone] LVOT Area 3.5 cm2 [facility] Work Phone: [phone] LVOT Cardiac Output 5.0 liter/mi nut e [facility] Work Phone: [phone] LVOT Diameter 2.1 cm [facility] Work Phone: [phone] LVOT Mean Gradient 2 mmHg [facility] Work Phone: [phone] LVOT Peak Gradient 4 mmHg [facility] Work Phone: [phone] LVOT Peak Velocity 0.9 m/s [facility] Work Phone: [phone] LVOT Stroke Volume Index 24.9 mL/m2 [facility] Work Phone: LVOT SV 61.6 ml [employer] [facility] Work Phone: LVOT VTI 17.8 cm [employer] [facility] Work Phone: LVOT:AV VTI Index 0.85 [facility] Work Phone: LVPWd 1.6 cm Abnormal 0.6 - 1.0 cm [facility] Work Phone: MV A Velocity 0.75 m/s [facility] Work Phone: MV E Velocity 0.54 m/s [facility] Work Phone: MV E Wave Deceleration Time 189.6 ms [facility] [employer] Work Phone: MV E/A 0.72 [facility] Work Phone: Recovery Stage 1 Duration 1:15 min:sec [employer] Work Phone: Recovery Stage 1 HR 130 bpm [facility] Work Phone: Recovery Stage 2 BP 115/44 mmHg [facility] Work Phone: Recovery Stage 2 Duration 2:15 min:sec [employer] Work Phone: Recovery Stage 2 HR 130 bpm [facility] [employer] Phone: Recovery Stage 3 BP 131/59 mmHg [employer] Work Phone: Recovery Stage 3 Duration 5:15 min:sec [employer] Work Phone: Recovery Stage 3 HR 111 bpm [facility] [employer] Work Phone: Recovery Stage 4 Comments no symptoms [employer] Work Phone: Recovery Stage 4 Duration 6:15 min:sec [employer] Work Phone: Recovery Stage 4 HR 100 bpm [facility] Work Phone: Stress Diastolic BP 39 mmHg [employer] Work Phone: Stress Estimated Workload 1.0 METS [employer] Work Phone: Stress Peak HR 130 bpm [facility] [employer] Work Phone: Stress Percent HR Achieved 84 % [facility] Work Phone: Stress Rate Pressure Product 61900 bpm*mmHg [facility] Work Phone: Stress ST Depression 0 [...] Phone: Stress Stage 4 BP 116/50 mmHg [facility] Work Phone: Stress Stage 4 Duration 5:50 min:sec [facility] Work Phone: Stress Stage 4 HR 94 bpm [facility] Work Phone: Stress Stage 5 BP 113/39 mmHg [facility] Work Phone: Stress Stage 5 Duration 8:50 min:sec [facility] Work Phone: Stress Stage 5 HR 114 bpm [facility] Work Phone: Stress Stage 6 Comments no symptoms [facility] Work Phone: Stress Stage 6 Duration 11:8 min:sec [facility] Work Phone: Stress Stage 6 HR 130 bpm [facility] Work Phone: Stress Systolic BP 113 mmHg [facility] Work Phone: Stress Target HR 154 bpm [facility] Work Phone: [facility] Work Phone: No Panel Informationon [...] on 07-13-2023 Bilirubin [Mass/Vol] 0.30 mg/dL 0.20-1.00 [facility] Comment on above: For patients on eltr ombopag therapy, use of Dimension [place] TBIL is not recommended. Chloride [Moles/Vol] 116 mmol/L 98-107 [facility] Cholesterol [Mass/Vol] 96 mg/dL <200 [facility] Comment on above: <200 mg/dL Desirable 200-240 mg/dL Borderline >240 mg/dL High Risk Glucose [Mass/Vol] 122 mg/dL 74-106 [facility] Comment on above: Fasting Glucose resu lt from 100 to 125 mg/dL suggests IMPAIRED HOMEOSTASIS per A.D.A. criteria. Hemoglobin (Bld) [Mass/Vol] 10.1 g/dL 13.0-16.5 [facility] Potassium [Moles/Vol] 4.4 mmol/L 3.5-5.1 [facility] Protein [Mass/Vol] 5.8 g/dL 6.4-8.2 [facility] Sodium [Moles/Vol] 144 mmol/L 136-145 [facility] Triglyceride [Mass/Vol] 88 mg/dL <199 [facility] Comment on above: The drugs N-Acetylcy steine and Metamizole may falsely depress this assay.Serum Triglycerides Reference Interval Normal <150 mg/dL Borderline high 150 - 199 mg/dL High 200 - 499 mg/dL Very High > or = 500 mg/dL WBC (Bld) [#/Vol] 4.8 10*3/uL 4.4-11.0 [facility] Determination of erythrocyte mean corpuscular volume (MCV)Ordered By: Chelle Troncoso on 07-13-2023 MCV (RBC) [Entitic vol] 98.2 fL 80-94 [facility] Erythrocyte distribution wid th ratioOrdered By: Chelle Troncoso on 07-13-2023 Erythrocyte distribution width (RBC) [Ratio] 14.9 % 11.6-14.6 [facility] Erythrocyte distribution wid th standard deviationOrdered By: Chelle Troncoso on 07-13-2023 Erythrocyte distribution width (RBC) [Entitic vol] 53.7 fL 35.1-43.9 [facility] Erythrocyte sedimentation ra teOrdered By: Chelle Troncoso on 07-13-2023 ESR (Bld) [Velocity] 7 mm/h 0-20 [facility] Hematocrit Auto (Bld) [Volum e fraction]Ordered By: Chelle Troncoso on 07-13-2023 Hematocrit (Bld) [Volume fraction] 33.5 % 40-54 [facility] Laboratory - Chemistry and C hemistry - challengeOrdered By: Chelle Troncoso on 07-13-2023 Albumin/Globulin [Mass ratio] 1.1 {ratio} 0.9-2.4 [facility] ALP [Catalytic activity/Vol] 90 U/L 45-117 [facility] ALT [Catalytic activity/Vol] 18 U/L 16-61 [facility] Cholesterol in HDL [Mass/Vol] 40 mg/dL >40 [facility] Comment on above: The drugs N-Acetylcy steine and Metamizole may falsely depress this assay. Reference Range HDL <40 mg/dL Low HDL Cholesterol HDL >or= 60 mg/dL High HDL Cholesterol Cholesterol in LDL [Mass/Vol] 38 mg/dL 0-130 [facility] CO2 [Moles/Vol] 25.0 mmol/L 21.0-32.0 [facility] Globulin (S) [Mass/Vol] 2.8 g/dL 2.2-4.2 [facility] Urea nitrogen/Creatinine [Mass ratio] 20.7 mg/mg 10-20 [facility] Laboratory - Hematology and Cell countsOrdered By: Chelle Troncoso on 07-13-2023 MCH (RBC) [Entitic mass] 29.6 pg 27.0-32.0 [facility] MCHC (RBC) [Mass/Vol] 30.1 g/dL 32-36 [facility] Platelet mean volume (Bld) [Entitic vol] 10.9 fL 6.2-12.0 [facility] Platelets (Bld) [#/Vol] 201 10*3/uL 150-450 [facility] No Panel InformationOrdered By: Chelle Troncoso on 07-13-2023 C-Reactive Protein Extended Range < 2.90 mg/L 0.0-3.0 [facility] Comment on above: C-Reactive Protein ( CRP) provides useful information for thediagnosis, therapy and monitoring of inflammatory processesand associated diseases. For the evaluation of Relative Riskfor Cardiovascular Disease, a High Sensitivity CRP (HSCRP)should be ordered. Estimated GFR (MDRD) Amer 85 mL/min >60 [facility] Comment on above: GFR Calc Estimated GFR (MDRD) Non-Af Amer 70 mL/min >60 [facility] Comment on above: Non- GFR Calc VLDL Cholesterol 18 mg/dL 5-40 [facility] RBC Auto (Bld) [#/Vol]Ordere d By: Chelle Troncoso on 07-13-2023 RBC (Bld) [#/Vol] 3.41 10*6/uL 4.6-6.2 [facility] Serum or plasma calcium william urement (mass/volume)Ordered By: Chelle Troncoso on 07-13-2023 Calcium [Mass/Vol] 8.5 mg/dL 8.5-10.1 [facility] Serum or plasma creatinine m easurement (mass/volume)Ordered By: Chelle Troncoso on 07-13-2023 Creatinine [Mass/Vol] 1.11 mg/dL 0.70-1.30 [facility] Comment on above: The validity of the calculated GFR & GFRAA in patients over 70 years has not been determined. Clinical correlation is essential. Serum or plasma urea nitroge n measurement (mass/volume)Ordered By: Chelle Troncoso on 07-13-2023 Urea nitrogen [Mass/Vol] 23 mg/dL 7-18 [facility] Thin prep Papanicolaou smear with manual screeningOrdered By: Chelle Troncoso on 03-28-2024 Thin prep Papanicolaou smear with manual screening 3.0 g/dL 3.2-5.0 [facility] [facility] Thin prep Papanicolaou smear with manual screening 7 U/L 15-37 [facility] Thin prep Papanicolaou smear with manual screening 3 5-15 [facility] Whole blood hemoglobin A1c/t otal hemoglobin ratio (mass fraction)Ordered By: Chelle Troncoso on 07-13-2023 HbA1c (Bld) [Mass fraction] 7.7 % 3.8-5.6 [facility] Comment on above: Normal < 5.7 % Predi abetic 5.7 - 6.4 % Diabetic >or= 6.5 % Please note range changes. CNCOon 05-08-2023 [facility] Letter Text Normal [facility] percentageOrdered B y: Chelle Troncoso on 05-02-2023 Chloride [Moles/Vol] 111 mmol/L 98-107 [facility] Cholesterol [Mass/Vol] 96 mg/dL <200 [facility] Comment on above: <200 mg/dL Desirable 200-240 mg/dL Borderline >240 mg/dL High Risk Glucose [Mass/Vol] 118 mg/dL 74-106 [facility] Comment on above: Fasting Glucose resu lt from 100 to 125 mg/dL suggests IMPAIRED HOMEOSTASIS per A.D.A. criteria. Potassium [Moles/Vol] 4.7 mmol/L 3.5-5.1 [facility] Comment on above: Slight Hemolysis, Re sult may be falsely increased. Sodium [Moles/Vol] 142 mmol/L 136-145 [facility] Triglyceride [Mass/Vol] 86 mg/dL <199 [facility] Comment on above: The drugs N-Acetylcy steine and Metamizole may falsely depress this assay.Serum Triglycerides Reference Interval Normal <150 mg/dL Borderline high 150 - 199 mg/dL High 200 - 499 mg/dL Very High > or = 500 mg/dL Laboratory - Chemistry and C hemistry - challengeOrdered By: Chelle Troncoso on 05-02-2023 Cholesterol in HDL (Body fld) [Mass/Vol] 46 mg/dL >40 [facility] Comment on above: The drugs N-Acetylcy steine and Metamizole may falsely depress this assay. Reference Range HDL <40 mg/dL Low HDL Cholesterol HDL >or= 60 mg/dL High HDL Cholesterol Cholesterol in LDL (Body fld) [Moles/Vol] 33 mg/dL 0-130 [facility] Cholesterol in VLDL Calc [Moles/Vol] 17 mg/dL 5-40 [facility] CO2 [Moles/Vol] 26.0 mmol/L 21.0-32.0 [facility] Urea nitrogen/Creatinine [Mass ratio] 17.0 mg/mg 10-20 [facility] No Panel InformationOrdered By: Chelle Troncoso on 05-02-2023 Estimated GFR (MDRD) Amer 96 mL/min >60 [facility] Comment on above: GFR Calc Estimated GFR (MDRD) Non-Af Amer 79 mL/min >60 [facility] Comment on above: Non- GFR Calc Serum or plasma calcium william urement (mass/volume)Ordered By: Chelle Troncoso on 05-02-2023 Calcium [Mass/Vol] 9.1 mg/dL 8.5-10.1 [facility] Serum or plasma creatinine m easurement (mass/volume)Ordered By: Chelle Troncoso on 05-02-2023 Creatinine [Mass/Vol] 1.00 mg/dL 0.70-1.30 [facility] Comment on above: The validity of the calculated GFR & GFRAA in patients over 70 years has not been determined. Clinical correlation is essential. Serum or plasma urea nitroge n measurement (mass/volume)Ordered By: Chelle Troncoso on 05-02-2023 Urea nitrogen [Mass/Vol] 17 mg/dL 7-18 [facility] Thin prep Papanicolaou smear with manual screeningOrdered By: Chelle Troncoso on 05-02-2023 Thin prep Papanicolaou smear with manual screening 5 5-15 [facility] Whole blood hemoglobin A1c/t otal hemoglobin ratio (mass fraction)Ordered By: Chelle Troncoso on 05-02-2023 HbA1c (Bld) [Mass fraction] 7.6 % 3.8-5.6 [facility] Comment on above: Normal < 5.7 % Predi abetic 5.7 - 6.4 % Diabetic >or= 6.5 % Please note range changes. CBC panel Auto (Bld)Ordered By: Hang Stoner on 04-24-2023 Erythrocyte distribution width (RBC) [Ratio] 15.0 % High 11.5 - 14.5 % [facility] Hematocrit (Bld) [Volume fraction] 31.7 % Low 40.0 - 52.0 % [facility] Hemoglobin (Bld) [Mass/Vol] 10.5 g/dL Low 13.0 - 18.0 g/dL [facility] Interpretation and review of laboratory results Abnormal [facility] MCH (RBC) [Entitic mass] 29.4 pg 26. 0 - 34.0 pg [facility] MCHC (RBC) [Mass/Vol] 33.1 % 32.0 - 36.0 % [facility] MCV (RBC) [Entitic vol] 88.9 fL 80.0 - 98.0 fL [facility] Platelet mean volume (Bld) [Entitic vol] 8.2 fL 7.4 - 12.4 fL [facility] Platelets (Bld) [#/Vol] 166 10*3/uL 140 - 440 10*3/uL [facility] RBC (Bld) [#/Vol] 3.57 10*6/uL Low 4.40 - 5.9 0 10*6/uL [facility] WBC (Bld) [#/Vol] 5.6 10*3/uL 3.6 - 10.7 10*3/uL [facility] Comprehensive metabolic 1998 panelon 04-24-2023 Albumin [Mass/Vol] 3.3 g/dL Low 3.5 - 5.0 g/dL [facility] ALP [Catalytic activity/Vol] 78 U/L 38 - 126 U/L [facility] ALT [Catalytic activity/Vol] 15 U/L 0 - 49 U/L [facility] Anion gap [Moles/Vol] 8 mmol/L 3 - 13 mmol/L [facility] AST [Catalytic activity/Vol] 14 U/L Low 15 - 46 U/L [facility] Bilirubin [Mass/Vol] 0.2 mg/dL 0.2 - 1 .3 mg/dL [facility] Calcium [Mass/Vol] 8.7 mg/dL 8.4 - 10. 4 mg/dL [facility] Chloride [Moles/Vol] 107 mmol/L 98 - 10 7 mmol/L [facility] CO2 [Moles/Vol] 25 mmol/L 22 - 30 mmol/L [facility] Creatinine [Mass/Vol] 0.80 mg/dL 0.66 - 1.25 mg/dL [facility] GFR/1.73 sq M.predicted MDRD (S/P/Bld) [Vol rate/Area] - PINF [facility] Comment on above: Calculation based on the Chronic Kidney Disease Epidemiology Collaboration (CKD-EPI) equation refit without adjustment for race Glucose [Mass/Vol] 189 mg/dL High 70 - 100 mg/dL [facility] Potassium [Moles/Vol] 4.4 mmol/L 3.5 - 5.1 mmol/L [facility] Protein [Mass/Vol] 5.7 g/dL Low 6.3 - 8.2 g/dL [facility] Sodium [Moles/Vol] 140 mmol/L 135 - 145 mmol/L [facility] Urea nitrogen [Mass/Vol] 19 mg/dL 9 - 20 mg/dL [facility] Laboratory - Chemistry and C hemistry - challengeon 04-24-2023 Glucose [Mass/Vol] 159 mg/dL High 70 - 100 mg/dL [facility] Glucose [Mass/Vol] 164 mg/dL High 70 - 100 mg/dL [facility] Troponin I.cardiac [Mass/Vol] ng/mL [facility] - 0.034 ng/mL [facility] Troponin I.cardiac [Mass/Vol] ng/mL [facility] - 0.034 ng/mL [facility] Lipid 1996 panelon 4 Cholesterol [Mass/Vol] 82 mg/dL NINF - 200 mg/dL [facility] Cholesterol in HDL [Mass/Vol] 37 mg/dL Low 40 - 60 mg/dL [facility] Cholesterol in LDL [Mass/Vol] 27 mg/dL 0 - <100 [facility] Cholesterol.total/Choles terol in HDL [Mass ratio] 2 {ratio} [facility] Comment on above: Ref Range: < 3 Low Risk for CHD 3-6 Mod Risk for CHD > 6 High Risk for CHD Triglyceride [Mass/Vol] 89 mg/dL NINF - 150 mg/dL [facility] No Panel Informationon 04-24 Interpretation and review of laboratory results Abnormal [facility] Performed by: [facility], [address] [place] [address] [place] [id number] CLIA ID: [id number] [facility] Interpretation and review of laboratory results Abnormal [facility] [employer] Performed by: [facility], [address] [place] [id number] CLIA ID: [id number] [facility] [employer] SINUS RHYTHM PROBABLE LEFT ATRIAL ABNORMALITY NONSPECIFIC INTRAVENTRICULAR CONDUCTION DELAY Electronically Signed On 04-24-2023 04:58:43 EST by Gerardo Pinto CV Gerardo Stoll MD - 04/24/2023 IMPRESSION: SINUS RHYTHM PROBABLE LEFT ATRIAL ABNORMALITY NONSPECIFIC INTRAVENTRICULAR CONDUCTION DELAY Electronically Signed On 04-24-2023 04:58:43 EST by Gerardo Pinto [facility] [employer] Interpretation and review of laboratory results Abnormal [facility] [employer] No Panel InformationOrdered By: Gerardo Pinto on 04-24-2023 P [place] 0 degrees [employer] Work Phone: ID Interval 168 ms [employer] Work Phone: QRS [place] -34 degrees [employer] Work Phone: QRSD Interval 118 ms [employer] Work Phone: QT Interval 440 ms [employer] Work Phone: QTC Interval 458 ms [employer] Work Phone: T Wave [place] 102 degrees [employer] Work Phone: [employer] Work Phone: Troponin I.cardiac [Mass/Vol ]on 04-24-2023 Interpretation and review of laboratory results Normal [facility] [employer] Patients with high levels of Biotin oral intake (ie >5 mg/day) may have falsely decreased Troponin levels. [facility] [employer] Interpretation and review of laboratory results Normal [facility] [employer] Patients with high levels of Biotin oral intake (ie >5 mg/day) may have falsely decreased Troponin levels. [facility] [employer] Vital signsOrdered By: Gerardo nieves on 04-24-2023 Heart rate 65 /min bpm [employer] Work Phone: Basic metabolic 1998 panelon 04-23-2023 Anion gap [Moles/Vol] 7 mmol/L 3 - 13 mmol/L [facility] [employer] Calcium [Mass/Vol] 8.9 mg/dL 8.4 - 10. 4 mg/dL [facility] Chloride [Moles/Vol] 105 mmol/L 98 - 10 7 mmol/L [facility] CO2 [Moles/Vol] 25 mmol/L 22 - 30 mmol/L [facility] Creatinine [Mass/Vol] 0.86 mg/dL 0.66 - 1.25 mg/dL [facility] GFR/1.73 sq M.predicted MDRD (S/P/Bld) [Vol rate/Area] - PINF [facility] Comment on above: Calculation based on the Chronic Kidney Disease Epidemiology Collaboration (CKD-EPI) equation refit without adjustment for race Glucose [Mass/Vol] 217 mg/dL High 70 - 100 mg/dL [facility] Interpretation and review of laboratory results Abnormal [facility] Potassium [Moles/Vol] 4.6 mmol/L 3.5 - 5.1 mmol/L [facility] Sodium [Moles/Vol] 138 mmol/L 135 - 145 mmol/L [facility] Urea nitrogen [Mass/Vol] 18 mg/dL 9 - 20 mg/dL [facility] CBC W Auto Differential pane l (Bld)Ordered By: Papo Christopher on 04-23-2023 Basophils (Bld) [#/Vol] 0.0 10*3/uL 0.0 - 0.2 10*3/uL [facility] Basophils/100 WBC (Bld) 0.8 % 0.0 - 2.0 % [facility] Eosinophils (Bld) [#/Vol] 0.1 10*3/uL 0.0 - 0.5 10*3/uL [facility] Eosinophils/100 WBC (Bld) 2.5 % 1.0 - 6.0 % [facility] Erythrocyte distribution width (RBC) [Ratio] 14.9 % High 11.5 - 14.5 % [facility] Hematocrit (Bld) [Volume fraction] 34.3 % Low 40.0 - 52.0 % [facility] Hemoglobin (Bld) [Mass/Vol] 11.5 g/dL Low 13.0 - 18.0 g/dL [facility] Interpretation and review of laboratory results Abnormal [facility] Lymphocytes (Bld) [#/Vol] 1.1 10*3/uL 1.0 - 4.3 10*3/uL [facility] Lymphocytes/100 WBC (Bld) 20.0 % 20.0 - 40.0 % [facility] MCH (RBC) [Entitic mass] 29.7 pg 26. 0 - 34.0 pg [facility] [employer] MCHC (RBC) [Mass/Vol] 33.5 % 32.0 - 36.0 % [facility] MCV (RBC) [Entitic vol] 88.5 fL 80.0 - 98.0 fL [facility] Monocytes (Bld) [#/Vol] 0.5 10*3/uL 0.0 - 0.8 10*3/uL [facility] Monocytes/100 WBC (Bld) 10.0 % 2.0 - 10.0 % [facility] Neutrophils (Bld) [#/Vol] 3.6 10*3/uL 1.8 - 7.0 10*3/uL [facility] Neutrophils/100 WBC (Bld) 66.7 % 40.0 - 80.0 % [facility] Nucleated RBC/100 WBC (Bld) [Ratio] 0.1 % [facility] [employer] Platelet mean volume (Bld) [Entitic vol] 8.5 fL 7.4 - 12.4 fL [facility] Platelets (Bld) [#/Vol] 192 10*3/uL 140 - 440 10*3/uL [facility] RBC (Bld) [#/Vol] 3.87 10*6/uL Low 4.40 - 5.9 0 10*6/uL [facility] WBC (Bld) [#/Vol] 5.4 10*3/uL 3.6 - 10.7 10*3/uL [facility] Laboratory - Chemistry and C hemistry - challengeon 04-23-2023 Troponin I.cardiac [Mass/Vol] ng/mL [facility] - 0.034 ng/mL [facility] Troponin I.cardiac [Mass/Vol ]on 04-23-2023 Interpretation and review of laboratory results Normal [facility] Patients with high levels of Biotin oral intake (ie >5 mg/day) may have falsely decreased Troponin levels. [facility] XR Chest Single viewon 04-23 1. No acute findings. Report Dictated on Electronically Signed By: Primo Millan MD Electronically Signed Date/Time: 04/23/2023 8:42 PM [facility] Patient Name: JAMES REYES : [...] No apparent pneumothorax. Bony thorax grossly unremarkable. [facility] Primo Millan MD - 04/23/2023 Patient [...] MD Electronically Signed Date/Time: 04/23/2023 8:42 PM [facility] Radiology Study observation (narrative) [facility] XR Chest Single viewOrdered By: Primo Millan on 04-23-2023 [facility] [employer] Work Phone: Basophil percentageOrdered B y: Chelle Troncoso on 12-01-2022 Bilirubin [Mass/Vol] 0.30 mg/dL 0.20-1.00 [facility] Comment on above: For patients on eltr ombopag therapy, use of Dimension [place] TBIL is not recommended. Chloride [Moles/Vol] 115 mmol/L 98-107 [facility] Glucose [Mass/Vol] 192 mg/dL 74-106 [facility] Comment on above: Fasting Glucose resu lt greater than or equal to 126 mg/dL suggests DIABETES MELLITUS per A.D.A. criteria. Potassium [Moles/Vol] 3.8 mmol/L 3.5-5.1 [facility] Protein [Mass/Vol] 5.6 g/dL 6.4-8.2 [facility] Sodium [Moles/Vol] 142 mmol/L 136-145 [facility] WBC (Bld) [#/Vol] 4.1 10*3/uL 4.4-11.0 [facility] Blood erythrocytes count (nu mber/volume)Ordered By: Chelle Troncoso on 12-01-2022 RBC (Bld) [#/Vol] 3.47 10*6/uL 4.6-6.2 [facility] Blood hemoglobin measurement (mass/volume)Ordered By: Chelle Troncoso on 12-01-2022 Hemoglobin (Bld) [Mass/Vol] 10.0 g/dL 13.0-16.5 [facility] Blood platelet mean volumeOr dered By: Chelle Troncoso on 12-01-2022 Platelet mean volume (Bld) [Entitic vol] 10.8 fL 6.2-12.0 [facility] Determination of erythrocyte mean corpuscular volume (MCV)Ordered By: Chelle Troncoso on 12-01-2022 MCV (RBC) [Entitic vol] 93.1 fL 80-94 [facility] Hematocrit Auto (Bld) [Volum e fraction]Ordered By: Chelle Troncoso on 12-01-2022 Hematocrit (Bld) [Volume fraction] 32.3 % 40-54 [facility] Laboratory - Chemistry and C hemistry - challengeOrdered By: Chelle Troncoso on 12-01-2022 ALP [Catalytic activity/Vol] 102 U/L 45-117 [facility] ALT [Catalytic activity/Vol] 17 U/L 16-61 [facility] CO2 [Moles/Vol] 23.0 mmol/L 21.0-32.0 [facility] Globulin (S) [Mass/Vol] 2.7 g/dL 2.2-4.2 [facility] Lipase [Catalytic activity/Vol] 11 U/L 13-75 [facility] Comment on above: Please note:LIPASE r evised reference range effective 22. New Lipase methodology. Expected to produce lower values than the previous assay method. NEW Reference Range: 13 - 75 U/L Magnesium [Mass/Vol] 2.0 mg/dL 1.6-2.6 [facility] Urea nitrogen/Creatinine [Mass ratio] 15.6 mg/mg 10-20 [facility] Laboratory - Hematology and Cell countsOrdered By: Chelle Troncoso on 12-01-2022 Erythrocyte distribution width (RBC) [Entitic vol] 50.5 fL 35.1-43.9 [facility] Erythrocyte distribution width (RBC) [Ratio] 14.7 % 11.6-14.6 [facility] MCH (RBC) [Entitic mass] 28.8 pg 27.0-32.0 [facility] MCHC Auto (RBC) [Mass/Vol]Or dered By: Chelle Troncoso on 12-01-2022 MCHC (RBC) [Mass/Vol] 31.0 g/dL 32-36 [facility] No Panel InformationOrdered By: Chelle Troncoso on 12-01-2022 Estimated GFR (MDRD) Amer 72 mL/min >60 [facility] Comment on above: GFR Calc Estimated GFR (MDRD) Non-Af Amer 60 mL/min >60 [facility] Comment on above: Non- GFR Calc Platelets bldOrdered By: Costa Troncoso on 12-01-2022 Platelets (Bld) [#/Vol] 215 10*3/uL 150-450 [facility] Serum or plasma albumin william urement (mass/volume)Ordered By: Chelle Troncoso on 12-01-2022 Albumin [Mass/Vol] 2.9 g/dL 3.2-5.0 [facility] Serum or plasma albumin/glob ulin mass ratioOrdered By: Chelle Troncoso on 12-01-2022 Albumin/Globulin [Mass ratio] 1.1 {ratio} 0.9-2.4 [facility] Serum or plasma calcium william urement (mass/volume)Ordered By: Chelle Troncoso on 12-01-2022 Calcium [Mass/Vol] 8.7 mg/dL 8.5-10.1 [facility] Serum or plasma creatinine m easurement (mass/volume)Ordered By: Chelle Troncoso on 12-01-2022 Creatinine [Mass/Vol] 1.28 mg/dL 0.70-1.30 [facility] Comment on above: The validity of the calculated GFR & GFRAA in patients over 70 years has not been determined. Clinical correlation is essential. Serum or plasma urea nitroge n measurement (mass/volume)Ordered By: Chelle Troncsoo on 12-01-2022 Urea nitrogen [Mass/Vol] 20 mg/dL - [facility] Thin prep Papanicolaou smear with manual screeningOrdered By: Chelle Troncoso on 12-01-2022 Thin prep Papanicolaou smear with manual screening 9 U/L [facility] Thin prep Papanicolaou smear with manual screening 4 5-15 [facility] Basophil percentageOrdered B y: Chelle Troncoso on 10-13-2022 Bilirubin [Mass/Vol] 0.30 mg/dL 0.20-1.00 [facility] Comment on above: For patients on eltr ombopag therapy, use of Dimension [place] TBIL is not recommended. Chloride [Moles/Vol] 110 mmol/L 98-107 [facility] Cholesterol [Mass/Vol] 78 mg/dL <200 [facility] Comment on above: <200 mg/dL Desirable 200-240 mg/dL Borderline >240 mg/dL High Risk Glucose [Mass/Vol] 237 mg/dL 74-106 [facility] Comment on above: Glucose result great er than or equal to 200 mg/dLsuggests DIABETES MELLITUS per A.D.A. criteria. Potassium [Moles/Vol] 4.4 mmol/L 3.5-5.1 [facility] Protein [Mass/Vol] 5.9 g/dL 6.4-8.2 [facility] Sodium [Moles/Vol] 141 mmol/L 136-145 [facility] Triglyceride [Mass/Vol] 79 mg/dL <199 [facility] Comment on above: The drugs N-Acetylcy steine and Metamizole may falsely depress this assay.Serum Triglycerides Reference Interval Normal <150 mg/dL Borderline high 150 - 199 mg/dL High 200 - 499 mg/dL Very High > or = 500 mg/dL WBC (Bld) [#/Vol] 5.4 10*3/uL 4.4-11.0 [facility] Blood erythrocytes count (nu mber/volume)Ordered By: Chelle Troncoso on 10-13-2022 RBC (Bld) [#/Vol] 3.46 10*6/uL 4.6-6.2 [facility] Blood hemoglobin measurement (mass/volume)Ordered By: Chelle Troncoso on 10-13-2022 Hemoglobin (Bld) [Mass/Vol] 10.2 g/dL 13.0-16.5 [facility] Blood platelet mean volumeOr dered By: Chelle Troncoso on 10-13-2022 Platelet mean volume (Bld) [Entitic vol] 11.0 fL 6.2-12.0 [facility] Determination of erythrocyte mean corpuscular volume (MCV)Ordered By: Chelle Troncoso on 10-13-2022 MCV (RBC) [Entitic vol] 93.9 fL 80-94 [facility] Hematocrit Auto (Bld) [Volum e fraction]Ordered By: Chelle Troncoso on 10-13-2022 Hematocrit (Bld) [Volume fraction] 32.5 % 40-54 [facility] Laboratory - Chemistry and C hemistry - challengeOrdered By: Chelle Troncoso on 10-13-2022 ALP [Catalytic activity/Vol] 100 U/L 45-117 [facility] ALT [Catalytic activity/Vol] 17 U/L 16-61 [facility] CO2 [Moles/Vol] 26.0 mmol/L 21.0-32.0 [facility] Globulin (S) [Mass/Vol] 2.9 g/dL 2.2-4.2 [facility] Urea nitrogen/Creatinine [Mass ratio] 23.5 mg/mg 10-20 [facility] Laboratory - Hematology and Cell countsOrdered By: Chelle Troncoso on 10-13-2022 Erythrocyte distribution width (RBC) [Entitic vol] 52.2 fL 35.1-43.9 [facility] Erythrocyte distribution width (RBC) [Ratio] 15.2 % 11.6-14.6 [facility] MCH (RBC) [Entitic mass] 29.5 pg 27.0-32.0 [facility] [Mass/Vol]Or dered By: Chelle Troncoso on 10-13-2022 MCHC (RBC) [Mass/Vol] 31.4 g/dL 32-36 [facility] No Panel InformationOrdered By: Chelle Troncoso on 10-13-2022 Estimated GFR (MDRD) Amer 67 mL/min >60 [facility] Comment on above: GFR Calc Estimated GFR (MDRD) Non-Af Amer 56 mL/min >60 [facility] Comment on above: Non- GFR Calc Platelets bldOrdered By: Costa Troncoso on 10-13-2022 Platelets (Bld) [#/Vol] 200 10*3/uL 150-450 [facility] Serum or plasma albumin william urement (mass/volume)Ordered By: Chelle Troncoso on 10-13-2022 Albumin [Mass/Vol] 3.0 g/dL 3.2-5.0 [facility] Serum or plasma albumin/glob ulin mass ratioOrdered By: Chelle Troncoso on 10-13-2022 Albumin/Globulin [Mass ratio] 1.0 {ratio} 0.9-2.4 [facility] Serum or plasma calcium william urement (mass/volume)Ordered By: Chelle Troncoso on 10-13-2022 Calcium [Mass/Vol] 8.4 mg/dL 8.5-10.1 [facility] Serum or plasma cholesterol in HDL measurement (mass/volume)Ordered By: Chelle Troncoso on 10-13-2022 Cholesterol in HDL [Mass/Vol] 40 mg/dL >40 [facility] Comment on above: The drugs N-Acetylcy steine and Metamizole may falsely depress this assay. Reference Range HDL <40 mg/dL Low HDL Cholesterol HDL >or= 60 mg/dL High HDL Cholesterol Serum or plasma cholesterol in VLDL measurement (mass/volume)Ordered By: Chelle Troncoso on 10-13-2022 Cholesterol in VLDL [Mass/Vol] 16 mg/dL 5-40 [facility] Serum or plasma creatinine m easurement (mass/volume)Ordered By: Chelle Troncoso on 10-13-2022 Creatinine [Mass/Vol] 1.36 mg/dL 0.70-1.30 [facility] Comment on above: The validity of the calculated GFR & GFRAA in patients over 70 years has not been determined. Clinical correlation is essential. Serum or plasma low density lipoprotein (LDL) cholesterol measurement (mass/volume)Ordered By: Chelle Troncoso on 10-13-2022 Cholesterol in LDL [Mass/Vol] 22 mg/dL 0-130 [facility] Serum or plasma urea nitroge n measurement (mass/volume)Ordered By: Chelle Troncoso on 10-13-2022 Urea nitrogen [Mass/Vol] 32 mg/dL 7-18 [facility] Thin prep Papanicolaou smear with manual screeningOrdered By: Chelle Trocnoso on 10-13-2022 Thin prep Papanicolaou smear with manual screening 11 U/L 15-37 [facility] Thin prep Papanicolaou smear with manual screening 5 5-15 [facility] Whole blood hemoglobin A1c/t otal hemoglobin ratio (mass fraction)Ordered By: Chelle Troncoso on 10-13-2022 HbA1c (Bld) [Mass fraction] 7.6 % 3.8-5.6 [facility] Comment on above: Normal < 5.7 % Predi abetic 5.7 - 6.4 % Diabetic >or= 6.5 % Please note range changes. Basophil percentageOrdered B y: Chelle Troncoso on 10-12-2022 Bilirubin [Mass/Vol] 0.20 mg/dL 0.20-1.00 [facility] Comment on above: For patients on eltr ombopag therapy, use of Dimension [place] TBIL is not recommended. Chloride [Moles/Vol] 108 mmol/L 98-107 [facility] Cholesterol [Mass/Vol] 80 mg/dL <200 [facility] Comment on above: <200 mg/dL Desirable 200-240 mg/dL Borderline >240 mg/dL High Risk Glucose [Mass/Vol] 314 mg/dL 74-106 [facility] Comment on above: Glucose result great er than or equal to 200 mg/dLsuggests DIABETES MELLITUS per A.D.A. criteria. Potassium [Moles/Vol] 4.4 mmol/L 3.5-5.1 [facility] Protein [Mass/Vol] 5.9 g/dL 6.4-8.2 [facility] Sodium [Moles/Vol] 137 mmol/L 136-145 [facility] Triglyceride [Mass/Vol] 99 mg/dL <199 [facility] Comment on above: The drugs N-Acetylcy steine and Metamizole may falsely depress this assay.Serum Triglycerides Reference Interval Normal <150 mg/dL Borderline high 150 - 199 mg/dL High 200 - 499 mg/dL Very High > or = 500 mg/dL WBC (Bld) [#/Vol] 6.2 10*3/uL 4.4-11.0 [facility] Blood erythrocytes count (nu mber/volume)Ordered By: Chelle Troncoso on 10-12-2022 RBC (Bld) [#/Vol] 3.50 10*6/uL 4.6-6.2 [facility] Blood hemoglobin measurement (mass/volume)Ordered By: Chelle Troncoso on 10-12-2022 Hemoglobin (Bld) [Mass/Vol] 10.2 g/dL 13.0-16.5 [facility] Blood platelet mean volumeOr dered By: Chelle Troncoso on 10-12-2022 Platelet mean volume (Bld) [Entitic vol] 10.9 fL 6.2-12.0 [facility] Determination of erythrocyte mean corpuscular volume (MCV)Ordered By: Chelle Troncoso on 10-12-2022 MCV (RBC) [Entitic vol] 94.9 fL 80-94 [facility] Hematocrit Auto (Bld) [Volum e fraction]Ordered By: Chelle Troncoso on 10-12-2022 Hematocrit (Bld) [Volume fraction] 33.2 % 40-54 [facility] Laboratory - Chemistry and C hemistry - challengeOrdered By: Chelle Troncoso on 10-12-2022 ALP [Catalytic activity/Vol] 104 U/L 45-117 [facility] ALT [Catalytic activity/Vol] 20 U/L 16-61 [facility] CO2 [Moles/Vol] 25.0 mmol/L 21.0-32.0 [facility] Globulin (S) [Mass/Vol] 2.9 g/dL 2.2-4.2 [facility] Urea nitrogen/Creatinine [Mass ratio] 20.8 mg/mg 10-20 [facility] Laboratory - Hematology and Cell countsOrdered By: Chelle Troncoso on 10-12-2022 Erythrocyte distribution width (RBC) [Entitic vol] 52.6 fL 35.1-43.9 [facility] Erythrocyte distribution width (RBC) [Ratio] 15.1 % 11.6-14.6 [facility] MCH (RBC) [Entitic mass] 29.1 pg 27.0-32.0 [facility] MCHC Auto (RBC) [Mass/Vol]Or dered By: Chelle Troncoso on 10-12-2022 MCHC (RBC) [Mass/Vol] 30.7 g/dL 32-36 [facility] No Panel InformationOrdered By: Chelle Troncoso on 10-12-2022 Estimated GFR (MDRD) Amer 63 mL/min >60 [facility] Comment on above: GFR Calc Estimated GFR (MDRD) Non-Af Amer 52 mL/min >60 [facility] Comment on above: Non- GFR Calc Thyroid Stimulating Hormone (TSH) 2.41 uIU/mL 0.358-3.74 [facility] Vitamin D 25-Hydroxy 61.6 ng/mL [facility] Comment on above: Vitamin D 25(OH) Sta tus Range Deficiency <20 ng/mL (50nmol/L) Insufficiency 20 - 30 ng/mL (50 - 75 nmol/L) Sufficiency 30 - 100 ng/mL (75 - 250 nmol/L) Toxicity >100 ng/mL (>250 nmol/L) Platelets bldOrdered By: Costa Troncoso on 10-12-2022 Platelets (Bld) [#/Vol] 203 10*3/uL 150-450 [facility] Serum or plasma albumin william urement (mass/volume)Ordered By: Chelle Troncoso on 10-12-2022 Albumin [Mass/Vol] 3.0 g/dL 3.2-5.0 [facility] Serum or plasma albumin/glob ulin mass ratioOrdered By: Chelle Troncoso on 10-12-2022 Albumin/Globulin [Mass ratio] 1.0 {ratio} 0.9-2.4 [facility] Serum or plasma calcium william urement (mass/volume)Ordered By: Chelle Troncoso on 10-12-2022 Calcium [Mass/Vol] 8.5 mg/dL 8.5-10.1 [facility] Serum or plasma cholesterol in HDL measurement (mass/volume)Ordered By: Chelle Troncoso on 10-12-2022 Cholesterol in HDL [Mass/Vol] 36 mg/dL >40 [facility] Comment on above: The drugs N-Acetylcy steine and Metamizole may falsely depress this assay. Reference Range HDL <40 mg/dL Low HDL Cholesterol HDL >or= 60 mg/dL High HDL Cholesterol Serum or plasma cholesterol in VLDL measurement (mass/volume)Ordered By: Chelle Troncoso on 10-12-2022 Cholesterol in VLDL [Mass/Vol] 20 mg/dL 5-40 [facility] Serum or plasma creatinine m easurement (mass/volume)Ordered By: Chelle Troncoso on 10-12-2022 Creatinine [Mass/Vol] 1.44 mg/dL 0.70-1.30 [facility] Comment on above: The validity of the calculated GFR & GFRAA in patients over 70 years has not been determined. Clinical correlation is essential. Serum or plasma low density lipoprotein (LDL) cholesterol measurement (mass/volume)Ordered By: Chelle Troncoso on 10-12-2022 Cholesterol in LDL [Mass/Vol] 24 mg/dL 0-130 [facility] Serum or plasma urea nitroge n measurement (mass/volume)Ordered By: Chelle Troncoso on 10-12-2022 Urea nitrogen [Mass/Vol] 30 mg/dL 7-18 [facility] Thin prep Papanicolaou smear with manual screeningOrdered By: Chelle Troncoso on 10-12-2022 Thin prep Papanicolaou smear with manual screening 11 U/L 15-37 [facility] Thin prep Papanicolaou smear with manual screening 4 5-15 [facility] Whole blood hemoglobin A1c/t otal hemoglobin ratio (mass fraction)Ordered By: Chelle Troncoso on 10-12-2022 HbA1c (Bld) [Mass fraction] 7.6 % 3.8-5.6 [facility] Comment on above: Normal < 5.7 % Predi abetic 5.7 - 6.4 % Diabetic >or= 6.5 % Please note range changes. US Heart TransthoracicOrdere d By: Suzy Corcoran on 04-27-2022 Aortic Arch 2.9 cm [facility] Work Phone: Aortic Sinus Valsalva 3.8 cm [facility] Work Phone: Aortic Sinus Valsalva Index 1.50 cm/m2 [facility] Work Phone: Ascending [facility]orta 3.7 [facility] Work Phone: Ascending Aorta Index 1.46 cm/m2 [facility] Work Phone: E/E' Lateral 6.85 [facility] Work Phone: E/E' Ratio (Averaged) 8.99 [facility] [employer] Work Phone: E/E' Septal 11.13 [facility] [employer] Work Phone: EF BP 75 % 55 - 100 % [facility] [employer] Work Phone: Fractional Shortening 2D 24 % 28 - 44 % [facility] Work Phone: Interpretation and review of laboratory results Abnormal [facility] [employer] Work Phone: IVC Diameter 1.7 cm [facility] [employer] Work Phone: IVSd 1.9 cm Abnormal 0.6 - 1.0 cm [facility] Work Phone: LA Diameter 5.0 cm [facility] Work Phone: LA Size Index 1.97 cm/m2 [facility] Work Phone: LA Volume 2C 49 mL 18 - 58 mL [facility] [employer] Work Phone: LA Volume 4C 93 mL Abnormal 18 - 58 mL [facility] [employer] Work Phone: LA Volume A/L 74 mL [facility] Work Phone: LA Volume Index 2C 19 mL/m2 16 - 34 mL/m2 [facility] [employer] Work Phone: LA Volume Index 4C 37 mL/m2 Abnormal 16 - 34 mL/m2 [facility] [employer] Work Phone: LA Volume Index A/L 29 mL/m2 16 - 34 mL/m2 [facility] Work Phone: LV E' Lateral Velocity 13 cm/s [facility] Work Phone: LV E' Septal Velocity 8 cm/s [facility] Work Phone: LV EDV A2C 93 mL [facility] Work Phone: LV EDV A4C 147 mL [facility] Work Phone: LV EDV BP 124 mL 67 - 155 mL [facility] Work Phone: LV EDV Index A2C 37 mL/m2 [facility] Work Phone: LV EDV Index A4C 58 mL/m2 [facility] Work Phone: LV EDV Index BP 49 mL/m2 [facility] Work Phone: LV Ejection Fraction A2C 84 % [facility] Work Phone: LV Ejection Fraction A4C 67 % [facility] Work Phone: LV ESV A2C 15 mL [facility] Work Phone: LV ESV A4C 49 mL [facility] Work Phone: LV ESV BP 30 mL 22 - 58 mL [facility] Work Phone: LV ESV Index A2C 6 mL/m2 [facility] Work Phone: LV ESV Index A4C 19 mL/m2 [facility] Work Phone: LV ESV Index BP 12 mL/m2 [facility] Work Phone: LV Mass 2D 381.1 g Abnormal 88 - 224 g [facility] Work Phone: LV Mass 2D Index 150.0 g/m2 Abnormal 49 - 115 g/m2 [facility] Work Phone: LV RWT Ratio 0.95 [facility] Work Phone: LVIDd 4.2 cm 4.2 - 5.9 cm [facility] Work Phone: LVIDd Index 1.65 cm/m2 [facility] Work Phone: LVIDs 3.2 cm [facility] Work Phone: LVIDs Index 1.26 cm/m2 [facility] Work Phone: LVOT Area 4.2 cm2 [facility] Work Phone: LVOT Cardiac Output 8.0 liter/mi nut e [employer] [facility] Work Phone: LVOT Diameter 2.3 cm [facility] [employer] Work Phone: LVOT Mean Gradient 4 mmHg [facility] [employer] Work Phone: LVOT Peak Gradient 9 mmHg [facility] Work Phone: LVOT Peak Velocity 1.5 m/s [facility] [employer] Work Phone: LVOT Stroke Volume Index 45.8 mL/m2 [facility] [employer] Work Phone: LVOT SV 116.3 ml [facility] [employer] Work Phone: LVOT VTI 28.0 cm [facility] [employer] Work Phone: LVPWd 2.0 cm Abnormal 0.6 - 1.0 cm [facility] Work Phone: MV A Velocity 0.59 m/s [facility] Work Phone: MV E Velocity 0.89 m/s [facility] Work Phone: MV E Wave Deceleration Time 270.2 ms [facility] Work Phone: MV E/A 1.51 [facility] [employer] Work Phone: RV Basal Dimension 3.1 cm [facility] Work Phone: RV Free Wall Peak S' 9 cm/s [facility] Work Phone: RV Mid Dimension 2.6 cm [facility] Work Phone: Sinotubular Junction 3.1 cm [facility] [employer] Work Phone: TAPSE 2.2 cm 1.7 cm [facility] [employer] Work Phone: [facility] [employer] Work Phone: Heart Transthoracicon Left Ventricle: Left [...] imaging. Echo Additional Conclusions Technically difficult study. [facility] 07-28-2021 [facility] HNO ID: [id number] Author: RT Wagner(R) Service: ? Author Type: Project Development Leader Type: Allied Health Filed: 07/28/2021 11:34 AM [...] Wagner(R) July 28, 2021 11:34 AM Normal [facility] CBC panel Auto (Bld)on 07-28 Erythrocyte distribution width (RBC) [Ratio] 15.0 % Normal 11.5-15.0 [facility] Comment on above: Order Comment: Speci men Type: BLOOD SPECIMENOrdering Facility: [facility] Address: [address] [place] [address] Performed By: #### 5 8410-2 ####[facility] LABORATORYCLIA [id number] [place] [address] [place] Hematocrit (Bld) [Volume fraction] 36.6 % Low 39.0-51.0 [facility] Comment on above: Order Comment: Speci men Type: BLOOD SPECIMENOrdering Facility: [facility] Address: [address] [place] [address] Performed By: #### 5 8410-2 ####[facility] LABORATORYCLIA [id number] [place] [address] [place] Hemoglobin (Bld) [Mass/Vol] 11.6 g/dL Low 13.0-17.0 [facility] Comment on above: Order Comment: Speci men Type: BLOOD SPECIMENOrdering Facility: [facility] Address: [address] [place] [address] Performed By: #### 5 8410-2 ####[facility] LABORATORYCLIA [id number] [address] MCH (RBC) [Entitic mass] 28.3 pg Normal 26.0-34.0 [facility] Comment on above: Order Comment: Speci men Type: BLOOD SPECIMENOrdering Facility: [facility] Address: [address] [place] [address] Performed By: #### 5 8410-2 ####[facility] LABORATORYCLIA [id number] [address] OF [facility] MCHC (RBC) [Mass/Vol] 31.7 g/dL Normal 30.5-36.0 [facility] Comment on above: Order Comment: Speci men Type: BLOOD SPECIMENOrdering Facility: [facility] Address: [address] [place] [address] Performed By: #### 5 8410-2 ####[facility] LABORATORYCLIA [id number] [address] MCV (RBC) [Entitic vol] 89.3 fL Normal 80.0-100.[address] [facility] Comment on above: Order Comment: Speci men Type: BLOOD SPECIMENOrdering Facility: [facility] Address: [address] [place] [address] Performed By: #### 5 8410-2 ####[facility] LABORATORYCLIA [id number] [address] Nucleated RBC (Bld) [#/Vol] 10*3/uL Normal <0.01 [facility] Comment on above: Order Comment: Speci men Type: BLOOD SPECIMENOrdering Facility: [facility] Address: [address] [place] [address] Performed By: #### 5 8410-2 ####[facility] LABORATORYCLIA [id number] [address] Platelet mean volume (Bld) [Entitic vol] 10.3 fL Normal 9.0-12.7 [facility] Comment on above: Order Comment: Speci men Type: BLOOD SPECIMENOrdering Facility: [facility] Address: [address] [place] [address] Performed By: #### 5 8410-2 ####[facility] LABORATORYCLIA [id number] [address] [place] Platelets (Bld) [#/Vol] 377 10*3/uL Normal 150-400 [facility] Comment on above: Order Comment: Speci men Type: BLOOD SPECIMENOrdering Facility: [facility] Address: [address] [place] [address] Performed By: #### 5 8410-2 ####[facility] LABORATORYCLIA [id number] [address] OF [facility] RBC (Bld) [#/Vol] 4.10 10*6/uL Low 4.20-6.00 [facility] Comment on above: Order Comment: Speci men Type: BLOOD SPECIMENOrdering Facility: [facility] Address: [address] [place] [address] Performed By: #### 5 8410-2 ####[facility] LABORATORYCLIA [id number] [address] [place] WBC (Bld) [#/Vol] 16.69 10*3/uL High 3.70-11.00 [facility] Comment on above: Order Comment: Speci men Type: BLOOD SPECIMENOrdering Facility: [facility] Address: [address] [place] [address] Performed By: #### 5 8410-2 ####[facility] LABORATORYCLIA [id number] [address] CNDSon 07-28-2021 CNDS HNO ID: [id number] Author: Rosalie Dorantes DO Service: Critical Care [...] ? Mr. Reyes initially presented to the [facility] from [facility] on 07/21/2021 for evaluation of chest [...] Patient Condition @ Discharge: Stable Discharge Disposition: Immunopathologist Acute Care Alf Acute Care Diet: Low carb diet: 3-5 [...] previous 24 (more content not included)... Normal [facility] CONSULT PROGon 07-28-2021 CONSULT PROG HNO ID: [id number] Author: James Mai MD Service: Endocrinology Author [...] by left diabetic foot ulcer and neuropathy, [facility] resident, CAD status post CABG, [place], chronic [...] of metformin ? HbA1c: No data in [facility]. Review of systems: Constitutional: No new malaise. [...] 60 Units (more content not included)... Normal [facility] NURSING PROGon 07-28-2021 NURSING PROG HNO ID: [id number] Author: Wilmar Vigil RN Service: ? Author Type: Registered Nurse Type: Nursing Progress Note Filed: 07/28/2021 7:20 PM Note Text: Nursing Progress Note Patient Name: James Reyes Patient Location: [place] [address] [address] 10-15 Daily Note: Nurse to nurse given to MARLEY Pichardo at [facility] [place]. Patient transport set up for 7pm. All questions answered. It was requested by Kylee that the chaudhari and IV's be left in place. Patient will be discharged with coude chaudhari, 20 left AC PIV, and 20 right AC PIV. Patient in stable condition. This note was completed by: Wilmar Vigil Normal [facility] PROCALCITONIN (LAB)on 2021 Procalcitonin [Mass/Vol] 0.09 ng/mL High <0.09 [facility] Comment on above: Order Comment: Crystal bustillo Type: BLOOD SPECIMENOrdering Facility: [facility] Address: [address] [place] [id number] Result Comment: For a guided interpretation of test results, please visit the Change in Procalcitonin Calculator, [email or web address]. Performed By: #### 2 4362-6, PROCAL ####[facility] LABORATORYCLIA [id number] [place] [address] [place] Renal function 2000 panelon 07-28-2021 Albumin [Mass/Vol] 2.5 g/dL Low 3.9-4.9 [facility] Comment on above: Order Comment: Crystal bustillo Type: BLOOD SPECIMENOrdering Facility: [facility] Address: [address] [place] [address], [place] [address] Performed By: #### 2 4362-6, PROCAL ####[facility]ORATORYCLIA [id number] [place] [address] [place] Anion gap [Moles/Vol] 9 mmol/L Normal 9-18 [facility] Comment on above: Order Comment: Speci men Type: BLOOD SPECIMENOrdering Facility: [facility] Address: [address] [address] Performed By: #### 2 4362-6, PROCAL ####[facility]ORATORYCLIA [id number] [place] [address] [place] Calcium [Mass/Vol] 8.2 mg/dL Low 8.5-10.2 [facility] Comment on above: Order Comment: Speci men Type: BLOOD SPECIMENOrdering Facility: [facility] Address: [address] [place] [address] Performed By: #### 2 4362-6, PROCAL ####[facility] LABORATORYCLIA [id number] [place] [address] [place] Chloride [Moles/Vol] 95 mmol/L Low 97-105 [facility] Comment on above: Order Comment: Speci men Type: BLOOD SPECIMENOrdering Facility: [facility] Address: [address] [place] [address] Performed By: #### 2 4362-6, PROCAL ####[facility]ORATORYCLIA [id number] [place] [address] [place] CO2 [Moles/Vol] 30 mmol/L Normal 22-30 [facility] Comment on above: Order Comment: Speci men Type: BLOOD SPECIMENOrdering Facility: [facility] Address: [address] Performed By: #### 2 4362-6, PROCAL ####[facility] LABORATORYCLIA [id number] [place] [address] [place] Creatinine [Mass/Vol] 1.28 mg/dL High 0.73-1.22 [facility] Comment on above: Order Comment: Crystal bustillo Type: BLOOD SPECIMENOrdering Facility: [facility] Address: [address] [place] [place] [address] Performed By: #### 2 4362-6, PROCAL ####[facility] LABORATORYCLIA [id number] [place] [address] [place] ESTIMATED GLOMERULAR FILTRATION RATE 62 mL/min/1.73m??? Normal >=60 [facility] Comment on above: Order Comment: Echotracie bustillo Type: BLOOD SPECIMENOrdering Facility: [facility] Address: [address] Result Comment: Anu mated Glomerular Filtration [...] GFR. Performed By: #### 2 4362-6, PROCAL ####[facility] LABORATORYCLIA [id number] [place] [address] [place] Glucose [Mass/Vol] 275 mg/dL High 74-99 [facility] Comment on above: Order Comment: Crystal bustillo Type: BLOOD SPECIMENOrdering Facility: [facility] Address: [address] [place] [address] Result Comment: The [place] [employer] (ADA) provides guidance for cutoff [...] Standards of Medical Care in Diabetes 2016, [place] [employer]. Diabetes Care. 2016.39(Suppl 1). Performed By: #### 2 4362-6, PROCAL ####[facility]ORATORYCLIA [id number] [place] [address] [place] Phosphate [Mass/Vol] 3.6 mg/dL Normal 2.7-4.8 [facility] Comment on above: Order Comment: Speci men Type: BLOOD SPECIMENOrdering Facility: [facility] Address: [address] [place] [address] Performed By: #### 2 4362-6, PROCAL ####[facility] LABORATORYCLIA [id number] [place] [address] [place] Potassium [Moles/Vol] 4.4 mmol/L Normal 3.7-5.1 [facility] Comment on above: Order Comment: Speci men Type: BLOOD SPECIMENOrdering Facility: [facility] Address: [address] [place] [address] Performed By: #### 2 4362-6, PROCAL ####[facility] LABORATORYCLIA [id number] [place] [address] [place] Sodium [Moles/Vol] 134 mmol/L Low 136-144 [facility] Comment on above: Order Comment: Speci men Type: BLOOD SPECIMENOrdering Facility: [facility] Address: [address] [place] [address] Performed By: #### 2 4362-6, PROCAL ####[facility] LABORATORYCLIA [id number] [address] [place] Urea nitrogen [Mass/Vol] 48 mg/dL High 9-24 [facility] Comment on above: Order Comment: Speci men Type: BLOOD SPECIMENOrdering Facility: [facility] Address: [address] [place] [address] Performed By: #### 2 4362-6, PROCAL ####[facility]ORATORYCLIA [id number] [place] [address] [place] XR CHEST 1V FRONTALon 2021 XR CHEST 1V FRONTAL * * *Final Report* * * DATE OF EXAM: Jul 28 2021 11:43AM AKX [id number] - XR CHEST 1V FRONTAL / PROCEDURE REASON: Acute respiratory illness * * * * Physician Interpretation * * * * EXAMINATION: CHEST RADIOGRAPH (SINGLE VIEW AP OR PA) CLINICAL HISTORY: Acute respiratory illness MQ: XC1_5 Comparison: 07/24/2021 RESULT: Lines, tubes, and devices: Overlying registered nurse cardiac leads. Lungs and pleura: Small to moderate [...] vessels and increased fat within the mediastinum. Sewer And Drain Technician: DUYEN Transcribe Date/Time: Jul 28 2021 1:08P Dictated by : CHELLE CHILD MD This examination was interpreted and the report reviewed and electronically signed by: CHELLE CHILD MD on Jul 28 2021 1:10PM EST [id number] Normal [facility] CBC panel Auto (Bld)on 07-27 Erythrocyte distribution width (RBC) [Ratio] 15.0 % Normal 11.5-15.0 [facility] Comment on above: Order Comment: Crystal bustillo Type: BLOOD SPECIMENOrdering Facility: [facility] Address: [address] [place] [address] Performed By: #### 5 8410-2 ####[facility] LABORATORYCLIA [id number] [place] [address] [place] [facility] Hematocrit (Bld) [Volume fraction] 37.4 % Low 39.0-51.0 [facility] Comment on above: Order Comment: Crystal bustillo Type: BLOOD SPECIMENOrdering Facility: [facility] Address: [address] [address] Performed By: #### 5 8410-2 ####[facility] LABORATORYCLIA [id number] [address] OF [facility] Hemoglobin (Bld) [Mass/Vol] 11.9 g/dL Low 13.0-17.0 [facility] Comment on above: Order Comment: Speci men Type: BLOOD SPECIMENOrdering Facility: [facility] Address: [address] [place] [address] Performed By: #### 5 8410-2 ####[facility] LABORATORYCLIA [id number] [address] MCH (RBC) [Entitic mass] 27.9 pg Normal 26.0-34.0 [facility] Comment on above: Order Comment: Speci men Type: BLOOD SPECIMENOrdering Facility: [facility] Address: [address] [place] [address] Performed By: #### 5 8410-2 ####[facility] LABORATORYCLIA [id number] [address] MCHC (RBC) [Mass/Vol] 31.8 g/dL Normal 30.5-36.0 [facility] Comment on above: Order Comment: Speci men Type: BLOOD SPECIMENOrdering Facility: [facility] Address: [address] [place] [address] Performed By: #### 5 8410-2 ####[facility] LABORATORYCLIA [id number] [address] MCV (RBC) [Entitic vol] 87.6 fL Normal 80.0-100.0 [facility] Comment on above: Order Comment: Speci men Type: BLOOD SPECIMENOrdering Facility: [facility] Address: [address] [place] [address] Performed By: #### 5 8410-2 ####[facility] LABORATORYCLIA [id number] [address] Nucleated RBC (Bld) [#/Vol] 10*3/uL Normal <0.01 [facility] Comment on above: Order Comment: Speci men Type: BLOOD SPECIMENOrdering Facility: [facility] Address: [address] [place] [address] Performed By: #### 5 8410-2 ####[facility] LABORATORYCLIA [id number] [address] Platelet mean volume (Bld) [Entitic vol] 10.0 fL Normal 9.0-12.7 [facility] Comment on above: Order Comment: Speci men Type: BLOOD SPECIMENOrdering Facility: [facility] Address: [address] [place] [address] Performed By: #### 5 8410-2 ####[facility] LABORATORYCLIA [id number] [address] [place] Platelets (Bld) [#/Vol] 380 10*3/uL Normal 150-400 [facility] Comment on above: Order Comment: Speci men Type: BLOOD SPECIMENOrdering Facility: [facility] Address: [address] [place] [address] Performed By: #### 5 8410-2 ####[facility] LABORATORYCLIA [id number] [address] [place] RBC (Bld) [#/Vol] 4.27 10*6/uL Normal 4.20-6.00 [facility] Comment on above: Order Comment: Speci men Type: BLOOD SPECIMENOrdering Facility: [facility] Address: [address] [place] [address] Performed By: #### 5 8410-2 ####[facility] LABORATORYCLIA [id number] [address] [place] WBC (Bld) [#/Vol] 10.89 10*3/uL Normal 3.70-11.00 [facility] Comment on above: Order Comment: Speci men Type: BLOOD SPECIMENOrdering Facility: [facility] Address: [address] [place] [address] Performed By: #### 5 8410-2 ####[facility]ORATORYCLIA [id number] [address] [place] CONSULTon 07-27-2021 CONSULT HNO ID: [id number] Author: James Mai MD Service: Critical Care [...] by left diabetic foot ulcer and neuropathy, [facility] resident, CAD status post CABG, MINERVA, COPD [...] last hemoglobin A1c and had seen an health companion couple of years ago and has not [...] to the above notes by my medical coding auditor physician, and/or my medical student, please note [...] (LYRICA) 10 (more content not included)... Normal [facility] Renal function 2000 panelon 07-27-2021 Albumin [Mass/Vol] 2.6 g/dL Low 3.9-4.9 [facility] Comment on above: Order Comment: Speci men Type: BLOOD SPECIMENOrdering Facility: [facility] Address: [address] [place] [address] Performed By: #### 2 4362-6 ####[facility] LABORATORYCLIA [id number] [place] [address] [place] [facility] Anion gap [Moles/Vol] 12 mmol/L Normal 9-18 [facility] Comment on above: Order Comment: Speci men Type: BLOOD SPECIMENOrdering Facility: [facility] Address: [address] [address] Performed By: #### 2 4362-6 ####[facility] LABORATORYCLIA [id number] [place] [address] [place] Calcium [Mass/Vol] 8.7 mg/dL Normal 8.5-10.2 [facility] Comment on above: Order Comment: Speci men Type: BLOOD SPECIMENOrdering Facility: [facility] Address: [address] [address] Performed By: #### 2 4362-6 ####[facility] LABORATORYCLIA [id number] [address] Chloride [Moles/Vol] 94 mmol/L Low 97-105 [facility] Comment on above: Order Comment: Speci men Type: BLOOD SPECIMENOrdering Facility: [facility] Address: [address] [place] [address] Performed By: #### 2 4362-6 ####[facility] LABORATORYCLIA [id number] [address] OF [facility] CO2 [Moles/Vol] 28 mmol/L Normal 22-30 [facility] Comment on above: Order Comment: Speci men Type: BLOOD SPECIMENOrdering Facility: [facility] Address: [address] [place] [address] Performed By: #### 2 4362-6 ####[facility]ITALCL[facility] [id number] [address] Creatinine [Mass/Vol] 1.31 mg/dL High 0.73-1.22 [facility] Comment on above: Order Comment: Speci men Type: BLOOD SPECIMENOrdering Facility: [facility] Address: [address] [place] [address] Performed By: #### 2 4362-6 ####[facility] LABORATORYCLIA [id number] [address] ESTIMATED GLOMERULAR FILTRATION RATE 61 mL/min/1.73m??? Normal >=60 [facility] Comment on above: Order Comment: Speci men Type: BLOOD SPECIMENOrdering Facility: [facility] Address: [address] [place] [address] Result Comment: Anu mated Glomerular Filtration Rate [...] actual GFR. Performed By: #### 2 4362-6 ####[facility]PITALCLIA [id number] [place] [address] [place] Glucose [Mass/Vol] 161 mg/dL High 74-99 [facility] Comment on above: Order Comment: Crystal bustillo Type: BLOOD SPECIMENOrdering Facility: [facility] Address: [address] [place] [address] Result Comment: The [place] Diabetes [employer] (ADA) provides guidance for cutoff [...] Standards of Medical Care in Diabetes 2016, [place]. Diabetes Care. 2016.39(Suppl 1). Performed By: #### 2 4362-6 ####[facility]PITALCLIA [id number] [place] [address] [place] Phosphate [Mass/Vol] 2.9 mg/dL Normal 2.7-4.8 [facility] Comment on above: Order Comment: Crystal bustillo Type: BLOOD SPECIMENOrdering Facility: [facility] Address: [address] [place] [address] Performed By: #### 2 4362-6 ####[facility] CENTERIA [id number] [place] [address] [place] Potassium [Moles/Vol] 4.2 mmol/L Normal 3.7-5.1 [facility] Comment on above: Order Comment: Crystal bustillo Type: BLOOD SPECIMENOrdering Facility: [facility] Address: [address] [place] [address] Performed By: #### 2 4362-6 ####[facility] LABORATORYCLIA [id number] [place] [address] [place] Sodium [Moles/Vol] 134 mmol/L Low 136-144 [facility] Comment on above: Order Comment: Speci men Type: BLOOD SPECIMENOrdering Facility: [facility] Address: [address] [place], [place] [address] Performed By: #### 2 4362-6 ####[facility] LABORATORYCLIA [id number] [address] STATES OF [facility] Urea nitrogen [Mass/Vol] 50 mg/dL High 9-24 [facility] Comment on above: Order Comment: Speci men Type: BLOOD SPECIMENOrdering Facility: [facility] Address: [address] [place], [place] [address] Performed By: #### 2 4362-6 ####[facility] LABORATORYCLIA [id number] [address] THERAPY NTon 07-27-2021 THERAPY NT HNO ID: [id number] Author: Mirian Grier, PT Service: Physical Therapy Author Type: Physical Therapist Type: Therapy (PT/OT/Speech/Resp) Filed: 07/27/2021 4:05 PM Note Text: Physical Therapy SERVICE DATE: 07/27/2021 SERVICE TIME: 1341 to 1401 ROOM: [place] [address] Recommended Discharge Disposition: Home PT (at Assisted [...] ft Stairs Curb Step Car Transfer Blank chadn indicate activity not attempted General Deviations/Observations : [...] chair tra (more content not included)... Normal [facility] Bacteria Spec Resp Culton Bacteria identified Respiratory culture Nom (Unsp spec) ORGANISM ID: 1 Rare Yeast, not Cryptococcus neoformans GRAM STAIN: Rare Gram positive cocci in pairs Rare Yeast Rare Polymorphonuclear leukocytes Few Epithelial cells Abnormal [facility] Comment on above: Performed By: #### 3 2355-0 #### [facility] CLIA [id number] [address] STATES OF [facility] CBC panel Auto (Bld)on 07-26 Erythrocyte distribution width (RBC) [Ratio] 15.0 % Normal 11.5-15.0 [facility] Comment on above: Order Comment: Speci men Type: BLOOD SPECIMENOrdering Facility: [facility] Address: [address] [place] [address] Performed By: #### 9 4500-6 #### [facility] CLIA [id number] [address] [place] [address] [place] [facility] Hematocrit (Bld) [Volume fraction] 35.2 % Low 39.0-51.0 [facility] Comment on above: Order Comment: Speci men Type: BLOOD SPECIMENOrdering Facility: [facility] Address: [address] [address] Performed By: #### 9 4500-6 #### [facility] CLIA [id number] [address] [place] [address] Hemoglobin (Bld) [Mass/Vol] 11.1 g/dL Low 13.0-17.0 [facility] Comment on above: Order Comment: Speci men Type: BLOOD SPECIMENOrdering Facility: [facility] Address: [address] [place] [address] Performed By: #### 9 4500-6 #### [facility] CLIA [id number] [address] MCH (RBC) [Entitic mass] 27.9 pg Normal 26.0-34.0 [facility] Comment on above: Order Comment: Speci men Type: BLOOD SPECIMENOrdering Facility: [facility] Address: [address] [place] [address] Performed By: #### 9 4500-6 #### [facility] CLIA [id number] [address] MCHC (RBC) [Mass/Vol] 31.5 g/dL Normal 30.5-36.0 [facility] Comment on above: Order Comment: Speci men Type: BLOOD SPECIMENOrdering Facility: [facility] Address: [address] [place] [address] Performed By: #### 9 4500-6 #### [facility] CLIA [id number] [address] MCV (RBC) [Entitic vol] 88.4 fL Normal 80.0-100.0 [facility] Comment on above: Order Comment: Speci men Type: BLOOD SPECIMENOrdering Facility: [facility] Address: [address] [place] [address] Performed By: #### 9 4500-6 #### [facility] CLIA [id number] [address] Nucleated RBC (Bld) [#/Vol] 10*3/uL Normal <0.01 [facility] Comment on above: Order Comment: Speci men Type: BLOOD SPECIMENOrdering Facility: [facility] Address: [address] [place] [address] Performed By: #### 9 4500-6 #### [facility] CLIA [id number] [address] Platelet mean volume (Bld) [Entitic vol] 10.1 fL Normal 9.0-12.7 [facility] Comment on above: Order Comment: Speci men Type: BLOOD SPECIMENOrdering Facility: [facility] Address: [address] [place] [address] Performed By: #### 9 4500-6 #### [facility] CLIA [id number] [address] [place] Platelets (Bld) [#/Vol] 379 10*3/uL Normal 150-400 [facility] Comment on above: Order Comment: Speci men Type: BLOOD SPECIMENOrdering Facility: [facility] Address: [address] [place] [address] Performed By: #### 9 4500-6 #### [facility] CLIA [id number] [address] [place] RBC (Bld) [#/Vol] 3.98 10*6/uL Low 4.20-6.00 [facility] Comment on above: Order Comment: Speci men Type: BLOOD SPECIMENOrdering Facility: [facility] Address: [address] [place] [address] Performed By: #### 9 4500-6 #### [facility] CLIA [id number] [address] [place] WBC (Bld) [#/Vol] 9.59 10*3/uL Normal 3.70-11.00 [facility] Comment on above: Order Comment: Speci men Type: BLOOD SPECIMENOrdering Facility: [facility] Address: [address] [place] [address] Performed By: #### 9 4500-6 #### [facility] CLIA [id number] [address] [place] NUTRITIONon 07-26-2021 NUTRITION HNO ID: [id number] Author: Federica Loving RD Service: Nutrition Therapy [...] Grams protein determined by: 1.2 - 1.5 g/kg;[place] body weight Care Plan: Change diet to CHO controlled Monitor and Evaluation: Meet greater than 75% of estimated needs;Monitor fluid/electrolyte balance;Monitor bowel function;Monitor labs, I/Os, vital signs, weight Discharge Recommendations: Diet Diet: CHO controlled ------ HPI: 65 yo male, LOS 5 days, presented with chest pain and 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 Usual Weight Obtained From: Chart Review [...] July 26, 2021 TIME: 8:46 AM Normal [facility] Renal function 2000 panelon 07-26-2021 Albumin [Mass/Vol] 2.8 g/dL Low 3.9-4.9 [facility] Comment on above: Order Comment: Speci men Type: BLOOD SPECIMENOrdering Facility: [facility] Address: [address] [place] [address] Performed By: #### 2 4362-6 ####[facility] LABORATORYCLIA [id number] [place] [address] [place] Anion gap [Moles/Vol] 9 mmol/L Normal 9-18 [facility] Comment on above: Order Comment: Speci men Type: BLOOD SPECIMENOrdering Facility: [facility] Address: [address] [address] Performed By: #### 2 4362-6 ####[facility]ORATORYCLIA [id number] [place] [address] [place] Calcium [Mass/Vol] 8.9 mg/dL Normal 8.5-10.2 [facility] Comment on above: Order Comment: Speci men Type: BLOOD SPECIMENOrdering Facility: [facility] Address: [address] [place] [address] Performed By: #### 2 4362-6 ####[facility]ORATORYCLIA [id number] [place] [address] [place] Chloride [Moles/Vol] 96 mmol/L Low 97-105 [facility] Comment on above: Order Comment: Speci men Type: BLOOD SPECIMENOrdering Facility: [facility] Address: [address] [place] [address] Performed By: #### 2 4362-6 ####[facility]ORATORYCLIA [id number] [place] [address] [place] CO2 [Moles/Vol] 31 mmol/L High 22-30 [facility] Comment on above: Order Comment: Speci men Type: BLOOD SPECIMENOrdering Facility: [facility] Address: [address] [address] Performed By: #### 2 4362-6 ####[facility]ORATORYCLIA [id number] [place] [address] [place] Creatinine [Mass/Vol] 1.31 mg/dL High 0.73-1.22 [facility] Comment on above: Order Comment: Speci men Type: BLOOD SPECIMENOrdering Facility: [facility] Address: [address] [place] [address] Performed By: #### 2 4362-6 ####[facility]ORATORYCLIA [id number] [place] [address] [place] ESTIMATED GLOMERULAR FILTRATION RATE 61 mL/min/1.73m??? Normal >=60 [facility] Comment on above: Order Comment: Crystal bustillo Type: BLOOD SPECIMENOrdering Facility: [facility] Address: [address] [place] [address] Result Comment: Anu mated Glomerular Filtration Rate [...] actual GFR. Performed By: #### 2 4362-6 ####[facility]ORATORYCLIA [id number] [place] [address] [place] Glucose [Mass/Vol] 143 mg/dL High 74-99 [facility] Comment on above: Order Comment: Crystal bustillo Type: BLOOD SPECIMENOrdering Facility: [facility] Address: [address] [place] [address] Result Comment: The [place] Diabetes [employer] (ADA) provides guidance for cutoff [...] Standards of Medical Care in Diabetes 2016, [place]. Diabetes Care. 2016.39(Suppl 1). Performed By: #### 2 4362-6 ####[facility]ORATORYCLIA [id number] [place] [address] [place] Phosphate [Mass/Vol] 2.7 mg/dL Normal 2.7-4.8 [facility] Comment on above: Order Comment: Crystal bustillo Type: BLOOD SPECIMENOrdering Facility: [facility] Address: [address] [address] Performed By: #### 2 4362-6 ####[facility]ORATORYCLIA [id number] [address] [place] Potassium [Moles/Vol] 4.4 mmol/L Normal 3.7-5.1 [facility] Comment on above: Order Comment: Speci men Type: BLOOD SPECIMENOrdering Facility: [facility] Address: [address] [place] [address] Performed By: #### 2 4362-6 ####[facility]ORATORYCLIA [id number] [address] STATES OF [facility] Sodium [Moles/Vol] 136 mmol/L Normal 136-144 [facility] Comment on above: Order Comment: Speci men Type: BLOOD SPECIMENOrdering Facility: [facility] Address: [address] [place] [address] Performed By: #### 2 4362-6 ####[facility]ORATORYCLIA [id number] [address] STATES [facility] Urea nitrogen [Mass/Vol] 49 mg/dL High 9-24 [facility] Comment on above: Order Comment: Speci men Type: BLOOD SPECIMENOrdering Facility: [facility] Address: [address] [place] [address] Performed By: #### 2 4362-6 ####[facility]ORATORYCLIA [id number] [address] STATES OF [facility] CBC panel Auto (Bld)on 07-25 Erythrocyte distribution width (RBC) [Ratio] 15.1 % High 11.5-15.0 [facility] Comment on above: Order Comment: Speci men Type: BLOOD SPECIMENOrdering Facility: [facility] Address: [address] [place] [address] Performed By: #### 5 8410-2 ####[facility]ORATORYCLIA [id number] [address] Hematocrit (Bld) [Volume fraction] 34.4 % Low 39.0-51.0 [facility] Comment on above: Order Comment: Speci men Type: BLOOD SPECIMENOrdering Facility: [facility] Address: [address] [place] [address] Performed By: #### 5 8410-2 ####[facility]ORATORYCLIA [id number] [address] STATES OF [facility] Hemoglobin (Bld) [Mass/Vol] 10.8 g/dL Low 13.0-17.0 [facility] Comment on above: Order Comment: Speci men Type: BLOOD SPECIMENOrdering Facility: [facility] Address: [address] [place] [address] Performed By: #### 5 8410-2 ####[facility]ORATORYCLIA [id number] [address] STATES OF [facility] MCH (RBC) [Entitic mass] 28.3 pg Normal 26.0-34.0 [facility] Comment on above: Order Comment: Speci men Type: BLOOD SPECIMENOrdering Facility: [facility] Address: [address] [place] [address] Performed By: #### 5 8410-2 ####[facility]ORATORYCLIA [id number] [address] [place] MCHC (RBC) [Mass/Vol] 31.4 g/dL Normal 30.5-36.0 [facility] Comment on above: Order Comment: Speci men Type: BLOOD SPECIMENOrdering Facility: [facility] Address: [address] [place] [address] Performed By: #### 5 8410-2 ####[facility]ORATORYCLIA [id number] [address] MCV (RBC) [Entitic vol] 90.1 fL Normal 80.0-100.0 [facility] Comment on above: Order Comment: Speci men Type: BLOOD SPECIMENOrdering Facility: [facility] Address: [address] [place] [address] Performed By: #### 5 8410-2 ####[facility]ORATORYCLIA [id number] [address] [place] Nucleated RBC (Bld) [#/Vol] 10*3/uL Normal <0.01 [facility] Comment on above: Order Comment: Speci men Type: BLOOD SPECIMENOrdering Facility: [facility] Address: [address] [place] [address] Performed By: #### 5 8410-2 ####[facility]ORATORYCLIA [id number] [address] [place] Platelet mean volume (Bld) [Entitic vol] 10.1 fL Normal 9.0-12.7 [facility] Comment on above: Order Comment: Speci men Type: BLOOD SPECIMENOrdering Facility: [facility] Address: [address] [place] [address] Performed By: #### 5 8410-2 ####[facility]ORATORYCLIA [id number] [address] [place] Platelets (Bld) [#/Vol] 402 10*3/uL High 150-400 [facility] Comment on above: Order Comment: Speci men Type: BLOOD SPECIMENOrdering Facility: [facility] Address: [address] [place] [address] Performed By: #### 5 8410-2 ####[facility]ORATORYCLIA [id number] [place] [address] [place] RBC (Bld) [#/Vol] 3.82 10*6/uL Low 4.20-6.00 [facility] Comment on above: Order Comment: Speci men Type: BLOOD SPECIMENOrdering Facility: [facility] Address: [address] [place] [address] Performed By: #### 5 8410-2 ####[facility]ORATORYCLIA [id number] [place] [address] [place] WBC (Bld) [#/Vol] 12.31 10*3/uL High 3.70-11.00 [facility] Comment on above: Order Comment: Speci men Type: BLOOD SPECIMENOrdering Facility: [facility] Address: [facility] [place] [address] Performed By: #### 5 8410-2 ####[facility]ORATORYCLIA [id number] [place] [address] [place] CONSULT PROGon 07-25-2021 CONSULT PROG HNO ID: [id number] Author: Halina Lentz [facility] Service: Pharmacy Author Type: Pharmacist Type: Consult [...] pharmacy if there are questions. Halina Lentz [facility] Normal [facility] CONSULT PROG HNO ID: [id number] Author: Raji Lees MD Service: Infectious Disease [...] left diabetic foot ulcer, residing in a [facility], presented to [facility] 07/21/2021 for cough, shortness of breath [...] 0.75 g (more content not included)... Normal [facility] Gas and Carbon monoxide pane l (BldV)on 07-25-2021 Base excess Calc (BldV) [Moles/Vol] 7 mmol/L High 0-2 [facility] Comment on above: Order Comment: Speci men Type: VENOUS BLOOD SPECIMENOrdering Facility: [facility] Address: [address] [place] [address] Performed By: #### 2 4344-4 ####[facility]ORATORYCLIA [id number] [address] STATES OF [facility] Body temperature 98.6 [degF] Normal [facility] Comment on above: Order Comment: Speci men Type: VENOUS BLOOD SPECIMENOrdering Facility: [facility] Address: [address] [place] [address] Performed By: #### 2 4344-4 ####[facility]ATORYCLIA [id number] [address] STATES OF [facility] CALCIUM IONIZED, PH CORRECTED 1.17 mmol/L Normal 1.08-1.30 [facility] Comment on above: Order Comment: Speci men Type: VENOUS BLOOD SPECIMENOrdering Facility: [facility] SYSTEM Address: [address] [place] [address] Performed By: #### 2 4344-4 ####[facility] LABORATORYCLIA [id number] [address] [place] Calcium.ionized (BldV) [Mass/Vol] 1.17 mmol/L Normal 1.08-1.30 [facility] Comment on above: Order Comment: Speci men Type: VENOUS BLOOD SPECIMENOrdering Facility: [facility] Address: [address] [place] [address] Performed By: #### 2 4344-4 ####[facility] LABORATORYCLIA [id number] [address] [place] Carboxyhemoglobin (BldV) [Mass fraction] <1.0 Normal 0.0-2.0 [facility] Comment on above: Order Comment: Speci men Type: VENOUS BLOOD SPECIMENOrdering Facility: [facility] Address: [address] [place] [address] Result Comment: Carb oxyhemoglobin Reference Range for Smokers: 2.0-8.0% Performed By: #### 2 4344-4 ####[facility] LABORATORYCLIA [id number] [place] [address] [place] CO2 (BldV) [Partial pressure] 54 mm[Hg] Normal 42-55 [facility] Comment on above: Order Comment: Speci men Type: VENOUS BLOOD SPECIMENOrdering Facility: [facility] Address: [address] [place] [address] Performed By: #### 2 4344-4 ####[facility] LABORATORYCLIA [id number] [place] [address] [place] CO2 [Moles/Vol] 30 mmol/L High 25-29 [facility] Comment on above: Order Comment: Speci men Type: VENOUS BLOOD SPECIMENOrdering Facility: [facility] Address: [address] [place] [address] Performed By: #### 2 4344-4 ####[facility] LABORATORYCLIA [id number] [place] [address] [place] Glucose [Mass/Vol] 198 mg/dL High 60-105 [facility] Comment on above: Order Comment: Speci men Type: VENOUS BLOOD SPECIMENOrdering Facility: [facility] Address: [address] [place] [address] Performed By: #### 2 4344-4 ####[facility] LABORATORYCLIA [id number] [place] [address] [place] HCO3 (Bld) [Moles/Vol] 33 mmol/L High 24-28 [facility] Comment on above: Order Comment: Speci men Type: VENOUS BLOOD SPECIMENOrdering Facility: [facility] Address: [address] [place] [address] Performed By: #### 2 4344-4 ####[facility] LABORATORYCLIA [id number] [address] [place] Hematocrit (Bld) [Volume fraction] 35.5 % Low 39.0-51.0 [facility] Comment on above: Order Comment: Speci men Type: VENOUS BLOOD SPECIMENOrdering Facility: [facility] Address: [address] [place] [address] Performed By: #### 2 4344-4 ####[facility] LABORATORYCLIA [id number] [address] [place] Hemoglobin (Bld) [Mass/Vol] 11.5 g/dL Low 13.0-17.0 [facility] Comment on above: Order Comment: Speci men Type: VENOUS BLOOD SPECIMENOrdering Facility: [facility] Address: [address] [place] [address] Performed By: #### 2 4344-4 ####[facility] LABORATORYCLIA [id number] [address] Methemoglobin (Bld) [Mass fraction] % Normal 0.0-1.5 [facility] Comment on above: Order Comment: Speci men Type: VENOUS BLOOD SPECIMENOrdering Facility: [facility] Address: [address] [place] [address] Performed By: #### 2 4344-4 ####[facility] LABORATORYCLIA [id number] [address] OF [facility] O2 THERAPY Hi-Flow Nasal Cannula-Heated Normal [facility] Comment on above: Order Comment: Speci men Type: VENOUS BLOOD SPECIMENOrdering Facility: [facility] Address: [address] [place] [address] Performed By: #### 2 4344-4 ####[facility] LABORATORYCLIA [id number] [address] Oxygen (BldV) [Partial pressure] 38 mm[Hg] Normal 35-45 [facility] Comment on above: Order Comment: Speci men Type: VENOUS BLOOD SPECIMENOrdering Facility: [facility] Address: [address] [place] [address] Performed By: #### 2 4344-4 ####[facility] LABORATORYCLIA [id number] [address] STATES OF [facility] Oxygen saturation in Blood 67 % Normal 60-85 [facility] Comment on above: Order Comment: Speci men Type: VENOUS BLOOD SPECIMENOrdering Facility: [facility] Address: [address] [place] [address] Performed By: #### 2 4344-4 ####[facility] LABORATORYCLIA [id number] [address] [place] Oxyhemoglobin (BldV) [Mass fraction] 66 % Normal 60-85 [facility] Comment on above: Order Comment: Speci men Type: VENOUS BLOOD SPECIMENOrdering Facility: [facility] Address: [address] [place] [address] Performed By: #### 2 4344-4 ####[facility] LABORATORYCLIA [id number] [address] [place] pH (BldV) 7.40 [pH] Normal 7.32-7.42 [facility] Comment on above: Order Comment: Speci men Type: VENOUS BLOOD SPECIMENOrdering Facility: [facility] Address: [address] [place] [address] Performed By: #### 2 4344-4 ####[facility] LABORATORYCLIA [id number] [address] [place] Potassium [Moles/Vol] 4.1 mmol/L Normal 3.5-5.0 [facility] Comment on above: Order Comment: Speci men Type: VENOUS BLOOD SPECIMENOrdering Facility: [facility] Address: [address] [place] [address] Performed By: #### 2 4344-4 ####[facility] LABORATORYCLIA [id number] [address] [place] Sodium [Moles/Vol] 133 mmol/L Low 136-144 [facility] Comment on above: Order Comment: Speci men Type: VENOUS BLOOD SPECIMENOrdering Facility: [facility] Address: [address] [place] [address] Performed By: #### 2 4344-4 ####[facility] LABORATORYCLIA [id number] [address] [place] HIGH SENSITIVITY TROPONIN To n 07-25-2021 HIGH SENSITIVITY MEDARDO 24 ng/L High <12 [facility] Comment on above: Order Comment: Speci men Type: BLOOD SPECIMEN [facility] Address: [address] [place] [address] Result Comment: When assessing risk for acute [...] MACE. Performed By: #### 5 8410-2 #### [facility] CLIA [id number] [address] [place] Renal function 2000 panelon 07-25-2021 Albumin [Mass/Vol] 2.9 g/dL Low 3.9-4.9 [facility] Comment on above: Order Comment: Speci men Type: BLOOD SPECIMENOrdering Facility: [facility] Address: [address] [place] [address] Performed By: #### 2 4362-6 ####[facility] LABORATORYCLIA [id number] [address] [place] Anion gap [Moles/Vol] 9 mmol/L Normal 9-18 [facility] Comment on above: Order Comment: Speci men Type: BLOOD SPECIMENOrdering Facility: [facility] Address: [address] [place] [address] Performed By: #### 2 4362-6 ####[facility] LABORATORYCLIA [id number] [address] [place] Calcium [Mass/Vol] 8.8 mg/dL Normal 8.5-10.2 [facility] Comment on above: Order Comment: Speci men Type: BLOOD SPECIMENOrdering Facility: [facility] Address: [address] [place] [address] Performed By: #### 2 4362-6 ####[facility] LABORATORYCLIA [id number] [place] [address] [place] Chloride [Moles/Vol] 96 mmol/L Low 97-105 [facility] Comment on above: Order Comment: Speci men Type: BLOOD SPECIMENOrdering Facility: [facility] Address: [address] [place] [address] Performed By: #### 2 4362-6 ####[facility] LABORATORYCLIA [id number] [place] [address] [place] CO2 [Moles/Vol] 30 mmol/L Normal 22-30 [facility] Comment on above: Order Comment: Speci men Type: BLOOD SPECIMENOrdering Facility: [facility] Address: [address] [place] [address] Performed By: #### 2 4362-6 ####[facility] LABORATORYCLIA [id number] [address] [place] Creatinine [Mass/Vol] 1.52 mg/dL High 0.73-1.22 [facility] Comment on above: Order Comment: Speci men Type: BLOOD SPECIMENOrdering Facility: [facility] Address: [address] [place] [address] Performed By: #### 2 4362-6 ####[facility] LABORATORYCLIA [id number] [address] [place] ESTIMATED GLOMERULAR FILTRATION RATE 51 mL/min/1.73m??? Low >=60 [facility] Comment on above: Order Comment: Speci men Type: BLOOD SPECIMENOrdering Facility: [facility] Address: [address] [place] [address] Result Comment: Anu mated Glomerular Filtration Rate [...] actual GFR. Performed By: #### 2 4362-6 ####[facility] LABORATORYCLIA [id number] [place] [address] [place] Glucose [Mass/Vol] 160 mg/dL High 74-99 [facility] Comment on above: Order Comment: Crystal bustillo Type: BLOOD SPECIMENOrdering Facility: [facility] Address: [address] [place], [place] [address] Result Comment: The [place] (ADA) provides guidance for cutoff [...] Standards of Medical Care in Diabetes 2016, [employer]. Diabetes Care. 2016.39(Suppl 1). Performed By: #### 2 4362-6 ####[facility] LABORATORYCLIA [id number] [place] [address] [place] Phosphate [Mass/Vol] 2.8 mg/dL Normal 2.7-4.8 [facility] Comment on above: Order Comment: Crystal bustillo Type: BLOOD SPECIMENOrdering Facility: [facility] Address: [address] [place] [address] Performed By: #### 2 4362-6 ####[facility] LABORATORYCLIA [id number] [place] [address] [place] Potassium [Moles/Vol] 4.8 mmol/L Normal 3.7-5.1 [facility] Comment on above: Order Comment: Crystal bustillo Type: BLOOD SPECIMENOrdering Facility: [facility] Address: [address] [place] [address] Performed By: #### 2 4362-6 ####[facility] LABORATORYCLIA [id number] [place] [address] [place] Sodium [Moles/Vol] 135 mmol/L Low 136-144 [facility] Comment on above: Order Comment: Speci men Type: BLOOD SPECIMENOrdering Facility: [facility] Address: [address] [place] [address] Performed By: #### 2 4362-6 ####[facility] LABORATORYCLIA [id number] [place] [address] [place] Urea nitrogen [Mass/Vol] 55 mg/dL High 9-24 [facility] Comment on above: Order Comment: Speci men Type: BLOOD SPECIMENOrdering Facility: [facility] Address: [address] [place] [address] Performed By: #### 2 4362-6 ####[facility] LABORATORYCLIA [id number] [address] [place] ALLIED HEALTHon 07-24-2021 ALLIED HEALTH HNO ID: [id number] Author: NATALEE Vaughan) Service: Radiology Author Type: [...] IV DATA: Not applicable SIGNED BY: RT Clement(Mary) July 24, 2021 5:14 AM Normal [facility] CBC panel Auto (Bld)on 07-24 Erythrocyte distribution width (RBC) [Ratio] 15.1 % High 11.5-15.0 [facility] Comment on above: Order Comment: Speci men Type: BLOOD SPECIMENOrdering Facility: [facility] Address: [address] [place] [address] Performed By: #### 9 4500-6 #### [facility] CLIA [id number] [address] OF [facility] Hematocrit (Bld) [Volume fraction] 34.3 % Low 39.0-51.0 [facility] Comment on above: Order Comment: Speci men Type: BLOOD SPECIMENOrdering Facility: [facility] Address: [address] [place] [address] Performed By: #### 9 4500-6 #### [facility] CLIA [id number] [address] OF [facility] Hemoglobin (Bld) [Mass/Vol] 10.4 g/dL Low 13.0-17.0 [facility] Comment on above: Order Comment: Speci men Type: BLOOD SPECIMENOrdering Facility: [facility] Address: [address] [place] [address] Performed By: #### 9 4500-6 #### [facility] CLIA [id number] [address] STATES OF [facility] MCH (RBC) [Entitic mass] 28.0 pg Normal 26.0-34.0 [facility] Comment on above: Order Comment: Speci men Type: BLOOD SPECIMENOrdering Facility: [facility] Address: [address] [place] [address] Performed By: #### 9 4500-6 #### [facility] CLIA [id number] [address] [place] MCHC (RBC) [Mass/Vol] 30.3 g/dL Low 30.5-36.0 [facility] Comment on above: Order Comment: Speci men Type: BLOOD SPECIMENOrdering Facility: [facility] Address: [address] Performed By: #### 9 4500-6 #### [facility] CLIA [id number] [address] MCV (RBC) [Entitic vol] 92.5 fL Normal 80.0-100.[address] [facility] Comment on above: Order Comment: Speci men Type: BLOOD SPECIMENOrdering Facility: [facility] Address: [facility] [place] [address] Performed By: #### 9 4500-6 #### [facility] CLIA [id number] [address] Nucleated RBC (Bld) [#/Vol] 10*3/uL Normal <0.01 [facility] Comment on above: Order Comment: Speci men Type: BLOOD SPECIMENOrdering Facility: [facility] Address: [address] [place] [address] Performed By: #### 9 4500-6 #### [facility] CLIA [id number] [address] Platelet mean volume (Bld) [Entitic vol] 10.5 fL Normal 9.0-12.7 [facility] Comment on above: Order Comment: Speci men Type: BLOOD SPECIMENOrdering Facility: [facility] Address: [address] [place] [address] Performed By: #### 9 4500-6 #### [facility] CLIA [id number] [address] Platelets (Bld) [#/Vol] 342 10*3/uL Normal 150-400 [facility] Comment on above: Order Comment: Speci men Type: BLOOD SPECIMENOrdering Facility: [facility] Address: [facility] [place] [address] Performed By: #### 9 4500-6 #### [facility] CLIA [id number] [address] [place] RBC (Bld) [#/Vol] 3.71 10*6/uL Low 4.20-6.00 [facility] Comment on above: Order Comment: Speci men Type: BLOOD SPECIMENOrdering Facility: [facility] Address: [address] [place] [address] Performed By: #### 9 4500-6 #### [facility] CLIA [id number] [address] [place] WBC (Bld) [#/Vol] 15.57 10*3/uL High 3.70-11.00 [facility] Comment on above: Order Comment: Speci men Type: BLOOD SPECIMENOrdering Facility: [facility] Address: [address] [place] [address] Performed By: #### 9 4500-6 #### [facility] CLIA [id number] [address] CONSULT PROGon 07-24-2021 CONSULT PROG HNO ID: [id number] Author: Ibeth Oneal RPh Service: Pharmacy Author [...] have any questions, [place] [phone]. Age: [age] year old Allergies: ALLERGIES Allergen [...] (H) 07/23/2021 0044 21.0 (H) Ibeth Oneal, [facility] Normal [facility] NT-proBNP [facility] 07-24 Natriuretic peptide.B prohormone N-Terminal [Mass/Vol] 937 pg/mL High <125 [facility] Comment on above: Order Comment: Speci men Type: BLOOD SPECIMENOrdering Facility: [facility] Address: [address] [place] [address] Performed By: #### 2 4362-6, 50746-6 ####[facility] LABORATORYCLIA [id number] [address] [place] Renal function 2000 panelon 07-24-2021 Albumin [Mass/Vol] 2.5 g/dL Low 3.9-4.9 [facility] Comment on above: Order Comment: Speci men Type: BLOOD SPECIMENOrdering Facility: [facility] Address: [address] [place] [address] Performed By: #### 2 4362-6, 64847-3 ####[facility] LABORATORYCLIA [id number] [address] [place] Anion gap [Moles/Vol] 12 mmol/L Normal 9-18 [facility] Comment on above: Order Comment: Speci men Type: BLOOD SPECIMENOrdering Facility: [facility] Address: [address] [place] [address] Performed By: #### 2 4362-6, 96853-1 ####[facility] LABORATORYCLIA [id number] [address] [place] Calcium [Mass/Vol] 8.5 mg/dL Normal 8.5-10.2 [facility] Comment on above: Order Comment: Speci men Type: BLOOD SPECIMENOrdering Facility: [facility] Address: [address] [place] [address] Performed By: #### 2 4362-6, 55633-7 ####[facility] LABORATORYCLIA [id number] [place] [address] [place] Chloride [Moles/Vol] 93 mmol/L Low 97-105 [facility] Comment on above: Order Comment: Speci men Type: BLOOD SPECIMENOrdering Facility: [facility] Address: [address] [place] [address] Performed By: #### 2 4362-6, 35775-6 ####[facility] LABORATORYCLIA [id number] [place] [address] [place] CO2 [Moles/Vol] 24 mmol/L Normal 22-30 [facility] Comment on above: Order Comment: Speci men Type: BLOOD SPECIMENOrdering Facility: [facility] Address: [address] [place] [address] Performed By: #### 2 4362-6, 88941-9 ####[facility] [id number] [address] STATES OF [facility] Creatinine [Mass/Vol] 1.58 mg/dL High 0.73-1.22 [facility] Comment on above: Order Comment: Speci men Type: BLOOD SPECIMENOrdering Facility: [facility] Address: [address] [place] [address] Performed By: #### 2 4362-6, 92102-6 ####[facility] LABORATORYCLIA [id number] [address] ESTIMATED GLOMERULAR FILTRATION RATE 49 mL/min/1.73m??? Low >=60 [facility] Comment on above: Order Comment: Speci men Type: BLOOD SPECIMENOrdering Facility: [facility] Address: [address] [place] [address] Result Comment: Anu mated Glomerular Filtration Rate [...] actual GFR. Performed By: #### 2 4362-6, 23762-8 ####[facility] LABORATORYCLIA [id number] [address] [place] Glucose [Mass/Vol] 417 mg/dL High 74-99 [facility] Comment on above: Order Comment: Speci men Type: BLOOD SPECIMENOrdering Facility: [facility] Address: [address] [place] [address] Result Comment: The [employer] Diabetes [employer] (ADA) provides guidance for cutoff [...] Standards of Medical Care in Diabetes 2016, [employer]. Diabetes Care. 2016.39(Suppl 1). Performed By: #### 2 4362-6, 60881-5 ####[facility] LABORATORYCLIA [id number] [place] [address] [place] Phosphate [Mass/Vol] 2.4 mg/dL Low 2.7-4.8 [facility] Comment on above: Order Comment: Speci men Type: BLOOD SPECIMENOrdering Facility: [facility] Address: [address] [place] [address] Performed By: #### 2 4362-6, 84606-2 ####[facility] LABORATORYCLIA [id number] [place] [address] [place] Potassium [Moles/Vol] 5.4 mmol/L High 3.7-5.1 [facility] Comment on above: Order Comment: Speci men Type: BLOOD SPECIMENOrdering Facility: [facility] Address: [address] [place] [address] Performed By: #### 2 4362-6, 90051-1 ####[facility] LABORATORYCLIA [id number] [place] [address] [place] Sodium [Moles/Vol] 129 mmol/L Low 136-144 [facility] Comment on above: Order Comment: Speci men Type: BLOOD SPECIMENOrdering Facility: [facility] Address: [address] [place] [address] Performed By: #### 2 4362-6, 66076-4 ####[facility] LABORATORYCLIA [id number] [place] [address] [place] Urea nitrogen [Mass/Vol] 55 mg/dL High 9-24 [facility] Comment on above: Order Comment: Speci men Type: BLOOD SPECIMENOrdering Facility: [facility] Address: [address] [place] [address] Performed By: #### 2 4362-6, 62327-7 ####[facility] LABORATORYCLIA [id number] [place] [id number] [place] [facility] Vancomycin random [Mass/Vol] on 07-24-2021 Vancomycin [Mass/Vol] 25.8 ug/mL High 10.0-20.0 [facility] Comment on above: Order Comment: Speci men Type: BLOOD SPECIMENOrdering Facility: [facility] Address: [address] [place] [address] Result Comment: Refe rence ranges and high/low indicator flags are provided as general guidelines only. The treating physician must determine appropriate target levels/dosing based on the specific clinical situation. Performed By: #### 4 091-5 ####[facility] LABORATORYCLIA [id number] [place] [id number] [place] XR CHEST 1V FRONTALon [...] described above. A follow-up exam is recommended. Sewer And Drain Technician: PSCKelly Transcribe Date/Time: Jul 24 2021 9:07A Dictated by : SAM MARCELINO MD This examination was interpreted and the report reviewed and electronically signed by: SAM MARCELINO MD on Jul 24 2021 9:09AM EST [id number] Normal [facility] CBC panel Auto (Bld)on 07-23 Erythrocyte distribution width (RBC) [Ratio] 15.2 % High 11.5-15.0 [facility] Comment on above: Order Comment: Speci men Type: BLOOD SPECIMEN [facility] Address: [address] [place] [address] Performed By: #### 5 8410-2 #### [facility] CLIA [id number] [address] [place] Hematocrit (Bld) [Volume fraction] 37.8 % Low 39.0-51.0 [facility] Comment on above: Order Comment: Speci men Type: BLOOD SPECIMEN [facility] Address: [address] [place] [address] Performed By: #### 5 8410-2 #### [facility] CLIA [id number] [address] [place] Hemoglobin (Bld) [Mass/Vol] 11.5 g/dL Low 13.0-17.0 [facility] Comment on above: Order Comment: Speci men Type: BLOOD SPECIMEN [facility] Address: [address] [place] [address] Performed By: #### 5 8410-2 #### [facility] CLIA [id number] [address] [place] MCH (RBC) [Entitic mass] 28.0 pg Normal 26.0-34.0 [facility] Comment on above: Order Comment: Speci men Type: BLOOD SPECIMEN [facility] Address: [address] [place] [address] Performed By: #### 5 8410-2 #### [facility] CLIA [id number] [address] MCHC (RBC) [Mass/Vol] 30.4 g/dL Low 30.5-36.0 [facility] Comment on above: Order Comment: Speci men Type: BLOOD SPECIMEN [facility] Address: [address] [place] [address] Performed By: #### 5 8410-2 #### [facility] CLIA [id number] [address] MCV (RBC) [Entitic vol] 92.0 fL Normal 80.0-100.0 [facility] Comment on above: Order Comment: Speci men Type: BLOOD SPECIMEN Ordering Facility: [facility] Address: [address] [place] [address] Performed By: #### 5 8410-2 #### [facility] CLIA [id number] [address] Nucleated RBC (Bld) [#/Vol] 10*3/uL Normal <0.01 [facility] Comment on above: Order Comment: Speci men Type: BLOOD SPECIMEN Ordering Facility: [facility] Address: [address] [place] [address] Performed By: #### 5 8410-2 #### [facility] CLIA [id number] [address] Platelet mean volume (Bld) [Entitic vol] 9.9 fL Normal 9.0-12.7 [facility] Comment on above: Order Comment: Speci men Type: BLOOD SPECIMEN Ordering Facility: [facility] Address: [address] [place] [address] Performed By: #### 5 8410-2 #### [facility] CLIA [id number] [address] [place] Platelets (Bld) [#/Vol] 359 10*3/uL Normal 150-400 [facility] Comment on above: Order Comment: Speci men Type: BLOOD SPECIMEN Ordering Facility: [facility] Address: [address] [place] [address] Performed By: #### 5 8410-2 #### [facility] CLIA [id number] [address] OF [facility] RBC (Bld) [#/Vol] 4.11 10*6/uL Low 4.20-6.00 [facility] Comment on above: Order Comment: Speci men Type: BLOOD SPECIMEN Ordering Facility: [facility] Address: [address] [place] [address] Performed By: #### 5 8410-2 #### [facility] CLIA [id number] [address] WBC (Bld) [#/Vol] 18.08 10*3/uL High 3.70-11.00 [facility] Comment on above: Order Comment: Speci men Type: BLOOD SPECIMEN Ordering Facility: [facility] Address: [address] [place] [address] Performed By: #### 5 8410-2 #### [facility] CLIA [id number] [address] CONSULTon 07-23-2021 CONSULT HNO ID: [id number] Author: Raji Lees MD Service: Infectious Disease Author Type: Physician Type: Consults Filed: 07/23/2021 1:50 PM Note Text: INITIAL CONSULT INFECTIOUS DISEASE SERVICE DATE: 07/23/2021 SERVICE TIME: 11:58 AM We were asked to evaluate Mr. James Reyes, a 65 year old yo male by Dr. Howell for Sepsis, not improving, now on meropenem. Our findings and recommendations will be communicated [...] left diabetic foot ulcer, residing in a [facility], presented to [facility] 07/21/2021 for cough, shortness of breath [...] REVIEW O (more content not included)... Normal [facility] CONSULT PROGon 07-23-2021 CONSULT PROG HNO ID: [id number] Author: Isabel Gao RPh Service: Pharmacy Author [...] have any questions, [place] [phone]. Age: [age] year old Allergies: ALLERGIES Allergen [...] Date/Time Value 07/23/2021 0044 21.0 (H) Isabel Gao, [facility] Normal [facility] Gas and Carbon monoxide pane l (BldV)on 07-23-2021 Base excess Calc (BldV) [Moles/Vol] 2 mmol/L Normal 0-2 [facility] Comment on above: Order Comment: Speci men Type: VENOUS BLOOD SPECIMENOrdering Facility: [facility] Address: [address] [place] [address] Performed By: #### 2 4344-4 ####[facility]IA [id number] [address] [place] Body temperature 98.24 [degF] Normal [facility] Comment on above: Order Comment: Speci men Type: VENOUS BLOOD SPECIMENOrdering Facility: [facility] Address: [address] [address] Performed By: #### 2 4344-4 ####[facility]IA [id number] [address] [place] CALCIUM IONIZED, PH CORRECTED 1.06 mmol/L Low 1.08-1.30 [facility] Comment on above: Order Comment: Speci men Type: VENOUS BLOOD SPECIMENOrdering Facility: [facility] Address: [address] [address] Performed By: #### 2 4344-4 ####[facility]IA [id number] [address] Calcium.ionized (BldV) [Mass/Vol] 1.12 mmol/L Normal 1.08-1.30 [facility] Comment on above: Order Comment: Speci men Type: VENOUS BLOOD SPECIMENOrdering Facility: [facility] Address: [address] [place] [address] Performed By: #### 2 4344-4 ####[facility]ORYCLIA [id number] [address] [place] Carboxyhemoglobin (BldV) [Mass fraction] 1.6 % Normal 0.0-2.0 [facility] Comment on above: Order Comment: Speci men Type: VENOUS BLOOD SPECIMENOrdering Facility: [facility] Address: [address] [place] [address] Result Comment: Carb oxyhemoglobin Reference Range for Smokers: 2.0-8.0% Performed By: #### 2 4344-4 ####[facility]IA [id number] [address] [place] CO2 (BldV) [Partial pressure] 62 mm[Hg] High 42-55 [facility] Comment on above: Order Comment: Speci men Type: VENOUS BLOOD SPECIMENOrdering Facility: [facility] Address: [address] [place] [address] Performed By: #### 2 4344-4 ####[facility]IA [id number] [address] [place] CO2 [Moles/Vol] 27 mmol/L Normal 25-29 [facility] Comment on above: Order Comment: Speci men Type: VENOUS BLOOD SPECIMENOrdering Facility: [facility] Address: [address] [place] [address] Performed By: #### 2 4344-4 ####[facility]ORYCLIA [id number] [place] [address] [place] CO2 adjusted to patient's actual temperature (BldV) [Partial pressure] 61 mmHg High 42-55 [facility] Comment on above: Order Comment: Speci men Type: VENOUS BLOOD SPECIMENOrdering Facility: [facility] Address: [address] [place] [address] Performed By: #### 2 4344-4 ####[facility]ORYCLIA [id number] [place] [address] [place] Glucose [Mass/Vol] mg/dL High 60-105 [facility] Comment on above: Order Comment: Speci men Type: VENOUS BLOOD SPECIMENOrdering Facility: [facility] Address: [address] [place] [address] Result Comment: Resu lt is above the technical range. Suggest that a glucose order be sent to the laboratory for testing. Performed By: #### 2 4344-4 ####[facility]IA [id number] [address] [place] HCO3 (Bld) [Moles/Vol] 29 mmol/L High 24-28 [facility] Comment on above: Order Comment: Speci men Type: VENOUS BLOOD SPECIMENOrdering Facility: [facility] Address: [address] [place] [address] Performed By: #### 2 4344-4 ####[facility]ORYCLIA [id number] [address] [place] Hematocrit (Bld) [Volume fraction] 33.5 % Low 39.0-51.0 [facility] Comment on above: Order Comment: Speci men Type: VENOUS BLOOD SPECIMENOrdering Facility: [facility] Address: [address] [place] [address] Performed By: #### 2 4344-4 ####[facility]ORYCLIA [id number] [place] [address] [place] Hemoglobin (Bld) [Mass/Vol] 10.8 g/dL Low 13.0-17.0 [facility] Comment on above: Order Comment: Speci men Type: VENOUS BLOOD SPECIMENOrdering Facility: [facility] Address: [address] [address] Performed By: #### 2 4344-4 ####[facility]ORYCLIA [id number] [address] Methemoglobin (Bld) [Mass fraction] % Normal 0.0-1.5 [facility] Comment on above: Order Comment: Speci men Type: VENOUS BLOOD SPECIMENOrdering Facility: [facility] Address: [address] [place] [address] Performed By: #### 2 4344-4 ####[facility]ORYCLIA [id number] [address] O2 THERAPY Positive Normal [facility] Comment on above: Order Comment: Speci men Type: VENOUS BLOOD SPECIMENOrdering Facility: [facility] Address: [address] [place] [address] Performed By: #### 2 4344-4 ####[facility]ORYCLIA [id number] [address] Oxygen (BldV) [Partial pressure] 52 mm[Hg] High 35-45 [facility] Comment on above: Order Comment: Speci men Type: VENOUS BLOOD SPECIMENOrdering Facility: [facility] Address: [address] [place] [address] Performed By: #### 2 4344-4 ####[facility]ORYCLIA [id number] [address] Oxygen adjusted to patient's actual temperature (BldV) [Partial pressure] 52 mmHg High 35-45 [facility] Comment on above: Order Comment: Speci men Type: VENOUS BLOOD SPECIMENOrdering Facility: [facility] Address: [facility] [address] Performed By: #### 2 4344-4 ####[facility]ORYCLIA [id number] [address] [place] Oxygen saturation in Blood 83 % Normal 60-85 [facility] Comment on above: Order Comment: Speci men Type: VENOUS BLOOD SPECIMENOrdering Facility: [facility] Address: [address] [place] [address] Performed By: #### 2 4344-4 ####[facility]ORYCLIA [id number] [address] Oxyhemoglobin (BldV) [Mass fraction] 81 % Normal 60-85 [facility] Comment on above: Order Comment: Speci men Type: VENOUS BLOOD SPECIMENOrdering Facility: [facility] Address: [address] [place] [address] Performed By: #### 2 4344-4 ####[facility]ORYCLIA [id number] [address] [place] pH (BldV) 7.29 [pH] Low 7.32-7.42 [facility] Comment on above: Order Comment: Speci men Type: VENOUS BLOOD SPECIMENOrdering Facility: [facility] Address: [address] [place] [address] Performed By: #### 2 4344-4 ####[facility]ORYCLIA [id number] [address] pH adjusted to patient's actual temperature (BldV) 7.29 Low 7.32-7.42 [facility] Comment on above: Order Comment: Speci men Type: VENOUS BLOOD SPECIMENOrdering Facility: [facility] Address: [address] [place] [address] Performed By: #### 2 4344-4 ####[facility]ORYCLIA [id number] [address] [place] Potassium [Moles/Vol] 5.1 mmol/L High 3.5-5.0 [facility] Comment on above: Order Comment: Speci men Type: VENOUS BLOOD SPECIMENOrdering Facility: [facility] Address: [address] [place] [address] Performed By: #### 2 4344-4 ####[facility]ORYCLIA [id number] [place] [address] [place] Sodium [Moles/Vol] 131 mmol/L Low 136-144 [facility] Comment on above: Order Comment: Speci men Type: VENOUS BLOOD SPECIMENOrdering Facility: [facility] Address: [address] [place] [address] Performed By: #### 2 4344-4 ####[facility]ORYCLIA [id number] [place] [address] [place] Renal function 2000 panelon 07-23-2021 Albumin [Mass/Vol] 3.0 g/dL Low 3.9-4.9 [facility] Comment on above: Order Comment: Speci men Type: BLOOD SPECIMENOrdering Facility: [facility] Address: [address] [place] [address] Performed By: #### 2 4362-6 ####[facility]ORYCLIA [id number] [address] [place] Anion gap [Moles/Vol] 11 mmol/L Normal 9-18 [facility] Comment on above: Order Comment: Speci men Type: BLOOD SPECIMENOrdering Facility: [facility] Address: [address] [place] [address] Performed By: #### 2 4362-6 ####[facility]ORYCLIA [id number] [place] [address] [place] Calcium [Mass/Vol] 8.8 mg/dL Normal 8.5-10.2 [facility] Comment on above: Order Comment: Speci men Type: BLOOD SPECIMENOrdering Facility: [facility] Address: [address] [place] [address] Performed By: #### 2 4362-6 ####[facility]ORYCLIA [id number] [place] [address] [place] Chloride [Moles/Vol] 95 mmol/L Low 97-105 [facility] Comment on above: Order Comment: Speci men Type: BLOOD SPECIMENOrdering Facility: [facility] Address: [address] [place] [address] Performed By: #### 2 4362-6 ####[facility]ORYCLIA [id number] [address] STATES OF [facility] CO2 [Moles/Vol] 26 mmol/L Normal 22-30 [facility] Comment on above: Order Comment: Speci men Type: BLOOD SPECIMENOrdering Facility: [facility] Address: [address] [place] [address] Performed By: #### 2 4362-6 ####[facility] [id number] [address] [place] Creatinine [Mass/Vol] 1.74 mg/dL High 0.73-1.22 [facility] Comment on above: Order Comment: Speci men Type: BLOOD SPECIMENOrdering Facility: [facility] Address: [address] [place] [address] Performed By: #### 2 4362-6 ####[facility]ENTERIA [id number] [address] ESTIMATED GLOMERULAR FILTRATION RATE 43 mL/min/1.73m??? Low >=60 [facility] Comment on above: Order Comment: Speci men Type: BLOOD SPECIMENOrdering Facility: [facility] Address: [address] [place] [address] Result Comment: Anu mated Glomerular Filtration Rate [...] actual GFR. Performed By: #### 2 4362-6 ####[facility]ORYCLIA [id number] [address] Glucose [Mass/Vol] 319 mg/dL High 74-99 [facility] Comment on above: Order Comment: Speci men Type: BLOOD SPECIMENOrdering Facility: [facility] Address: [address] [place] [address] Result Comment: The [place] (ADA) provides guidance for cutoff [...] Standards of Medical Care in Diabetes 2016, [employer]. Diabetes Care. 2016.39(Suppl 1). Performed By: #### 2 4362-6 ####[facility]ORYCLIA [id number] [place] [address] [place] Phosphate [Mass/Vol] 3.1 mg/dL Normal 2.7-4.8 [facility] Comment on above: Order Comment: Spectracie bustillo Type: BLOOD SPECIMENOrdering Facility: [facility] Address: [address] [place] [address] Performed By: #### 2 4362-6 ####[facility]ATORYCLIA [id number] [place] [address] [place] Potassium [Moles/Vol] 5.2 mmol/L High 3.7-5.1 [facility] Comment on above: Order Comment: Speci men Type: BLOOD SPECIMENOrdering Facility: [facility] Address: [address] [address] Performed By: #### 2 4362-6 ####[facility]ORYCLIA [id number] [place] [address] [place] Sodium [Moles/Vol] 132 mmol/L Low 136-144 [facility] Comment on above: Order Comment: Crystal men Type: BLOOD SPECIMENOrdering Facility: [facility] Address: [address] [address] Performed By: #### 2 4362-6 ####[facility]ATORYCLIA [id number] [address] [place] [facility] Urea nitrogen [Mass/Vol] 42 mg/dL High 9-24 [facility] Comment on above: Order Comment: Speci men Type: BLOOD SPECIMENOrdering Facility: [facility] Address: [address] [place] [address] Performed By: #### 2 4362-6 ####[facility]ORYCLIA [id number] [address] Urinalysis complete panel (U )on 07-23-2021 Bilirubin Ql (U) Negative Normal Negative [facility] Comment on above: Order Comment: Speci men Type: URINE SPECIMENOrdering Facility: [facility] Address: [address] [place] [address] Performed By: #### 2 4356-8 ####[facility]ORYCLIA [id number] [address] Clarity (Unsp spec) Turbid Abnormal Clear [facility] Comment on above: Order Comment: Speci men Type: URINE SPECIMENOrdering Facility: [facility] Address: [address] [place] [address] Performed By: #### 2 4356-8 ####[facility]ORYCLIA [id number] [address] Color (U) Yellow Normal yellow [facility] Comment on above: Order Comment: Speci men Type: URINE SPECIMENOrdering Facility: [facility] Address: [address] [place] [address] Performed By: #### 2 4356-8 ####[facility]ORYCLIA [id number] [address] Glucose Test strip (U) [Mass/Vol] Trace Abnormal Negative [facility] Comment on above: Order Comment: Speci men Type: URINE SPECIMENOrdering Facility: [facility] Address: [address] [place] [address] Performed By: #### 2 4356-8 ####[facility]ATORYCLIA [id number] [address] [place] Hemoglobin Ql (U) Negative Normal Negative [facility] Comment on above: Order Comment: Speci men Type: URINE SPECIMENOrdering Facility: [facility] Address: [address] [place] [address] Performed By: #### 2 4356-8 ####[facility]ORYCLIA [id number] [address] [place] Ketones Ql (U) Negative Normal Negative [facility] Comment on above: Order Comment: Speci men Type: URINE SPECIMENOrdering Facility: [facility] Address: [address] [place] [address] Performed By: #### 2 4356-8 ####[facility]ORYCLIA [id number] [address] [place] Leukocyte esterase Test strip Ql (U) Negative Normal Negative [facility] Comment on above: Order Comment: Speci men Type: URINE SPECIMENOrdering Facility: [facility] Address: [address] [place] [address] Performed By: #### 2 4356-8 ####[facility]ORYCLIA [id number] [address] [place] Nitrite Ql (U) Negative Normal Negative [facility] Comment on above: Order Comment: Speci men Type: URINE SPECIMENOrdering Facility: [facility] Address: [address] [place] [address] Performed By: #### 2 4356-8 ####[facility]ATORYCLIA [id number] [address] [place] pH (U) 5.0 [pH] Normal 5.0-8.0 [facility] Comment on above: Order Comment: Speci men Type: URINE SPECIMENOrdering Facility: [facility] Address: [address] [place] [address] Performed By: #### 2 4356-8 ####[facility]ORYCLIA [id number] [address] Protein (U) [Mass/Vol] 1+ Abnormal Negative [facility] Comment on above: Order Comment: Speci men Type: URINE SPECIMENOrdering Facility: [facility] Address: [address] [place] [address] Performed By: #### 2 4356-8 ####[facility]ORYCLIA [id number] [address] RBC LM.HPF (Urine sed) [#/Area] 0-3 /HPF Normal 0-3 /HPF [facility] Comment on above: Order Comment: Speci men Type: URINE SPECIMENOrdering Facility: [facility] Address: [address] [place] [address] Performed By: #### 2 4356-8 ####[facility]ORYCLIA [id number] [address] Specific gravity (U) [Rel density] 1.021 Normal 1.005-1.030 [facility] Comment on above: Order Comment: Speci men Type: URINE SPECIMENOrdering Facility: [facility] Address: [address] [place] [address] Performed By: #### 2 4356-8 ####[facility]ORYCLIA [id number] [address] Urobilinogen Ql (U) Normal Normal Negative [facility] Comment on above: Order Comment: Speci men Type: URINE SPECIMENOrdering Facility: [facility] Address: [address] [place] [address] Performed By: #### 2 4356-8 ####[facility]ATORYCLIA [id number] [address] WBC LM.HPF (Urine sed) [#/Area] 0-5 /HPF Normal 0-5 /HPF [facility] Comment on above: Order Comment: Speci men Type: URINE SPECIMENOrdering Facility: [facility] Address: [address] [place] [address] Performed By: #### 2 4356-8 ####[facility] LABORATORYCLIA [id number] [address] Vancomycin random [Mass/Vol] on 07-23-2021 Vancomycin [Mass/Vol] 21.0 ug/mL High 10.0-20.0 [facility] Comment on above: Order Comment: Speci men Type: BLOOD SPECIMENOrdering Facility: [facility] Address: [address] [address] Result Comment: Refe rence ranges and high/low indicator flags are provided as general guidelines only. The treating physician must determine appropriate target levels/dosing based on the specific clinical situation. Performed By: #### 4 091-5 ####[facility] LABORATORYCLIA [id number] [address] [place] Basic metabolic 2000 panelon 07-22-2021 Anion gap [Moles/Vol] 10 mmol/L Normal 9-18 [facility] Comment on above: Order Comment: Speci men Type: BLOOD SPECIMENOrdering Facility: [facility] Address: [address] [place] [address] Performed By: #### 3 2355-0 #### [facility] CLIA [id number] [address] STATES [place] [facility] Calcium [Mass/Vol] 8.5 mg/dL Normal 8.5-10.2 [facility] Comment on above: Order Comment: Speci men Type: BLOOD SPECIMENOrdering Facility: [facility] Address: [address] [address] Performed By: #### 3 2355-0 #### [facility] CLIA [id number] [address] [place] Chloride [Moles/Vol] 100 mmol/L Normal 97-105 [facility] Comment on above: Order Comment: Speci men Type: BLOOD SPECIMENOrdering Facility: [facility] Address: [address] [address] Performed By: #### 3 2355-0 #### [facility] CLIA [id number] [address] [place] CO2 [Moles/Vol] 27 mmol/L Normal 22-30 [facility] Comment on above: Order Comment: Speci men Type: BLOOD SPECIMENOrdering Facility: [facility] Address: [address] [place] [address] Performed By: #### 3 2355-0 #### [facility] CLIA [id number] [address] [place] [facility] Creatinine [Mass/Vol] 1.73 mg/dL High 0.73-1.22 [facility] Comment on above: Order Comment: Speci men Type: BLOOD SPECIMENOrdering Facility: [facility] Address: [address] [place] [address] Performed By: #### 3 2355-0 #### [facility] CLIA [id number] [address] ESTIMATED GLOMERULAR FILTRATION RATE 44 mL/min/1.73m??? Low >=60 [facility] Comment on above: Order Comment: Speci men Type: BLOOD SPECIMENOrdering Facility: [facility] Address: [address] [place] [address] Result Comment: Anu mated Glomerular Filtration Rate [...] GFR. Performed By: #### 3 2355-0 #### [facility] CLIA [id number] [address] [place] Glucose [Mass/Vol] 118 mg/dL High 74-99 [facility] Comment on above: Order Comment: Speci men Type: BLOOD SPECIMENOrdering Facility: [facility] Address: [address] [place] [address] Result Comment: The [place] [employer] (ADA) provides guidance for cutoff [...] Standards of Medical Care in Diabetes 2016, [employer]. Diabetes Care. 2016.39(Suppl 1). Performed By: #### 3 2355-0 #### [facility] CLIA [id number] [address] STATES OF [facility] Potassium [Moles/Vol] 5.0 mmol/L Normal 3.7-5.1 [facility] Comment on above: Order Comment: Speci men Type: BLOOD SPECIMENOrdering Facility: [facility] Address: [address] [place] [address] Performed By: #### 3 2355-0 #### [facility] CLIA [id number] [address] Sodium [Moles/Vol] 137 mmol/L Normal 136-144 [facility] Comment on above: Order Comment: Echoi men Type: BLOOD SPECIMENOrdering Facility: [facility] Address: [address] [place] [address] Performed By: #### 3 2355-0 #### [facility] CLIA [id number] [address] STATES [facility] Urea nitrogen [Mass/Vol] 29 mg/dL High 9-24 [facility] Comment on above: Order Comment: Speci men Type: BLOOD SPECIMENOrdering Facility: [facility] Address: [address] [place] [address] Performed By: #### 3 2355-0 #### [facility] CLIA [id number] [address] [place] CBC panel Auto (Bld)on 07-22 Erythrocyte distribution width (RBC) [Ratio] 15.5 % High 11.5-15.0 [facility] Comment on above: Order Comment: Speci men Type: BLOOD SPECIMEN [facility]ing Facility: [facility] Address: [address] [place] [address] Performed By: #### 5 8410-2 #### [facility] CLIA [id number] [address] OF [facility] Hematocrit (Bld) [Volume fraction] 41.8 % Normal 39.0-51.0 [facility] Comment on above: Order Comment: Speci men Type: BLOOD SPECIMEN Ordering Facility: [facility] Address: [address] [place] [address] Performed By: #### 5 8410-2 #### [facility] CLIA [id number] [address] OF [facility] Hemoglobin (Bld) [Mass/Vol] 12.3 g/dL Low 13.0-17.0 [facility] Comment on above: Order Comment: Speci men Type: BLOOD SPECIMEN [facility]ing Facility: [facility] Address: [address] [place] [address] Performed By: #### 5 8410-2 #### [facility] CLIA [id number] [address] OF [facility] MCH (RBC) [Entitic mass] 28.3 pg Normal 26.0-34.0 [facility] Comment on above: Order Comment: Speci men Type: BLOOD SPECIMEN [facility] Address: [address] [place] [address] Performed By: #### 5 8410-2 #### [facility] CLIA [id number] [address] STATES OF [facility] MCHC (RBC) [Mass/Vol] 29.4 g/dL Low 30.5-36.0 [facility] Comment on above: Order Comment: Speci men Type: BLOOD SPECIMEN Ordering Facility: [facility] Address: [address] Performed By: #### 5 8410-2 #### [facility] CLIA [id number] [address] MCV (RBC) [Entitic vol] 96.1 fL Normal 80.0-100.[address] [facility] Comment on above: Order Comment: Speci men Type: BLOOD SPECIMEN Ordering Facility: [facility] Address: [facility] [place] [address] Performed By: #### 5 8410-2 #### [facility] CLIA [id number] [address] Nucleated RBC (Bld) [#/Vol] 10*3/uL Normal <0.01 [facility] Comment on above: Order Comment: Speci men Type: BLOOD SPECIMEN Ordering Facility: [facility] Address: [address] [place] [address] Performed By: #### 5 8410-2 #### [facility] CLIA [id number] [address] Platelet mean volume (Bld) [Entitic vol] 9.9 fL Normal 9.0-12.7 [facility] Comment on above: Order Comment: Speci men Type: BLOOD SPECIMEN Ordering Facility: [facility] Address: [address] [place] [address] Performed By: #### 5 8410-2 #### [facility] CLIA [id number] [address] Platelets (Bld) [#/Vol] 357 10*3/uL Normal 150-400 [facility] Comment on above: Order Comment: Speci men Type: BLOOD SPECIMEN [facility]ing Facility: [facility] Address: [address] [place] [address] Performed By: #### 5 8410-2 #### [facility] CLIA [id number] [address] RBC (Bld) [#/Vol] 4.35 10*6/uL Normal 4.20-6.00 [facility] Comment on above: Order Comment: Speci men Type: BLOOD SPECIMEN [facility]ing Facility[facility] Address: [address] [place] [address] Performed By: #### 5 8410-2 #### [facility] CLIA [id number] [address] OF [place] WBC (Bld) [#/Vol] 15.27 10*3/uL High 3.70-11.00 [facility] Comment on above: Order Comment: Speci men Type: BLOOD SPECIMEN [facility]ing Facility: [facility] Address: [address] [place] [address] Performed By: #### 5 8410-2 #### [facility] CLIA [id number] [address] Gas and Carbon monoxide pane l (BldV)on 07-22-2021 BASE DEFICIT, VENOUS -1 mmol/L Normal -2-0 [facility] Comment on above: Order Comment: Speci men Type: BLOOD SPECIMEN [facility]ing Facility: [facility] Address: [address] [place] [address] Performed By: #### 5 8410-2 #### [facility] CLIA [id number] [address] Body temperature 97.88 [degF] Normal [facility] Comment on above: Order Comment: Speci men Type: BLOOD SPECIMEN [facility]ing Facility: [facility] Address: [address] [place] [address] Performed By: #### 5 8410-2 #### [facility] CLIA [id number] [address] OF [facility] CALCIUM IONIZED, PH CORRECTED 1.11 mmol/L Normal 1.08-1.30 [facility] Comment on above: Order Comment: Speci men Type: BLOOD SPECIMEN [facility]ing Facility: [facility] Address: [address] [place] [address] Performed By: #### 5 8410-2 #### [facility] CLIA [id number] [address] OF [place] Calcium.ionized (BldV) [Mass/Vol] 1.20 mmol/L Normal 1.08-1.30 [facility] Comment on above: Order Comment: Speci men Type: BLOOD SPECIMEN [facility]ing Facility: [facility] Address: [address] [place] [address] Performed By: #### 5 8410-2 #### [facility] CLIA [id number] [address] OF [place] Carboxyhemoglobin (BldV) [Mass fraction] 1.3 % Normal 0.0-2.0 [facility] Comment on above: Order Comment: Speci men Type: BLOOD SPECIMEN Ordering Facility: [facility] Address: [address] [place] [address] Result Comment: Carb oxyhemoglobin Reference Range for Smokers: 2.0-8.0% Performed By: #### 5 8410-2 #### [facility] CLIA [id number] [address] CO2 (BldV) [Partial pressure] 63 mm[Hg] High 42-55 [facility] Comment on above: Order Comment: Speci men Type: BLOOD SPECIMEN Ordering Facility: [facility] Address: [address] [place] [address] Performed By: #### 5 8410-2 #### [facility] CLIA [id number] [address] CO2 [Moles/Vol] 26 mmol/L Normal 25-29 [facility] Comment on above: Order Comment: Speci men Type: BLOOD SPECIMEN [facility]ing Facility: [facility] Address: [address] [place] [address] Performed By: #### 5 8410-2 #### [facility] CLIA [id number] [address] OF [place] CO2 adjusted to patient's actual temperature (BldV) [Partial pressure] 62 mmHg High 42-55 [facility] Comment on above: Order Comment: Speci men Type: BLOOD SPECIMEN Ordering Facility: [facility] Address: [address] [place] [address] Performed By: #### 5 8410-2 #### [facility] CLIA [id number] [address] STATES [place] Glucose [Mass/Vol] 198 mg/dL High 60-105 [facility] Comment on above: Order Comment: Speci men Type: BLOOD SPECIMEN Ordering Facility: [facility] Address: [address] [place] [address] Performed By: #### 5 8410-2 #### [facility] CLIA [id number] [address] [place] HCO3 (Bld) [Moles/Vol] 27 mmol/L Normal 24-28 [facility] Comment on above: Order Comment: Speci men Type: BLOOD SPECIMEN [facility]ing Facility: [facility] Address: [address] [place] [address] Performed By: #### 5 8410-2 #### [facility] CLIA [id number] [address] [place] Hematocrit (Bld) [Volume fraction] 35.2 % Low 39.0-51.0 [facility] Comment on above: Order Comment: Speci men Type: BLOOD SPECIMEN [facility]ing Facility: [facility] Address: [address] [place] [address] Performed By: #### 5 8410-2 #### [facility] CLIA [id number] [address] [place] Hemoglobin (Bld) [Mass/Vol] 11.4 g/dL Low 13.0-17.0 [facility] Comment on above: Order Comment: Speci men Type: BLOOD SPECIMEN [facility]ing Facility: [facility] Address: [address] [place] [address] Performed By: #### 5 8410-2 #### [facility] CLIA [id number] [address] [place] LITERS 15 Liters/min Normal [facility] Comment on above: Order Comment: Speci men Type: BLOOD SPECIMEN Ordering Facility: [facility] Address: [address] [place] [address] Performed By: #### 5 8410-2 #### [facility] CLIA [id number] [address] Methemoglobin (Bld) [Mass fraction] % Normal 0.0-1.5 [facility] Comment on above: Order Comment: Speci men Type: BLOOD SPECIMEN [facility]ing [facility]: [facility] Address: [address] [place] [address] Performed By: #### 5 8410-2 #### [facility] CLIA [id number] [address] O2 THERAPY Venti Mask Normal [facility] Comment on above: Order Comment: Speci men Type: BLOOD SPECIMEN Ordering Facility: [facility] Address: [address] [place] [address] Performed By: #### 5 8410-2 #### [facility] CLIA [id number] [address] Oxygen (BldV) [Partial pressure] 57 mm[Hg] High 35-45 [facility] Comment on above: Order Comment: Speci men Type: BLOOD SPECIMEN Ordering Facility: [facility] Address: [address] [place] [address] Performed By: #### 5 8410-2 #### [facility] CLIA [id number] [address] Oxygen adjusted to patient's actual temperature (BldV) [Partial pressure] 56 mmHg High 35-45 [facility] Comment on above: Order Comment: Speci men Type: BLOOD SPECIMEN Ordering Facility: [facility] Address: [address] [place] [address] Performed By: #### 5 8410-2 #### [facility] CLIA [id number] [address] [place] Oxygen saturation in Blood 88 % High 60-85 [facility] Comment on above: Order Comment: Speci men Type: BLOOD SPECIMEN Ordering Facility: [facility] Address: [address] [place] [address] Performed By: #### 5 8410-2 #### [facility] CLIA [id number] [address] Oxyhemoglobin (BldV) [Mass fraction] 86 % High 60-85 [facility] Comment on above: Order Comment: Speci men Type: BLOOD SPECIMEN Ordering Facility: [facility] Address: [address] [place] [address] Performed By: #### 5 8410-2 #### [facility] CLIA [id number] [address] [place] pH (BldV) 7.26 [pH] Low 7.32-7.42 [facility] Comment on above: Order Comment: Speci men Type: BLOOD SPECIMEN [facility]ing Facility: [facility] Address: [address] [place] [address] Performed By: #### 5 8410-2 #### [facility] CLIA [id number] [address] pH adjusted to patient's actual temperature (BldV) 7.26 Low 7.32-7.42 [facility] Comment on above: Order Comment: Speci men Type: BLOOD SPECIMEN [facility] Facility: [facility] Address: [address] [place] [address] Performed By: #### 5 8410-2 #### [facility] CLIA [id number] [address] [place] Potassium [Moles/Vol] 4.9 mmol/L Normal 3.5-5.0 [facility] Comment on above: Order Comment: Speci men Type: BLOOD SPECIMEN [facility]ing Facility: [facility] Address: [address] [place] [address] Performed By: #### 5 8410-2 #### [facility] CLIA [id number] 1 [place] [address] [place] Sodium [Moles/Vol] 136 mmol/L Normal 136-144 [facility] Comment on above: Order Comment: Speci men Type: BLOOD SPECIMEN [facility] Address: [address] [place] [address] Performed By: #### 5 8410-2 #### [facility] CLIA [id number] 1 [place] [address] [place] Legionella Ag Ur Qlon 2021 Legionella sp Ag Ql (U) Negative Normal Negative A [facility] Comment on above: Order Comment: Speci men Type: URINE SPECIMENOrdering Facility: [facility] Address: [address] [place] [address] Performed By: #### 3 2781-7 ####[facility] [id number] [place] [address] [place] Magnesium SerPl-mCncon 07-22 Magnesium [Mass/Vol] 2.0 mg/dL Normal 1.7-2.3 [facility] Comment on above: Order Comment: Speci men Type: BLOOD SPECIMENOrdering Facility: [facility] Address: [address] [place] [address] Performed By: #### 3 2355-0 #### [facility] CLIA [id number] [address] [place] [address] [place] Phosphate SerPl-mCncon 07-22 Phosphate [Mass/Vol] 4.2 mg/dL Normal 2.7-4.8 [facility] Comment on above: Order Comment: Speci men Type: BLOOD SPECIMENOrdering Facility: [facility] Address: [address] [place] [address] Performed By: #### 3 2355-0 #### [facility] CLIA [id number] [address] [place] STREPTOCOCCUS PNEUMONIAE AGo n 07-22-2021 STREPTOCOCCUS PNEUMONIAE AG STREP PNEUMO AG RESULT: Negative for Streptococcus pneumoniae antigen. Presumptive negative for pneumococcal pneumonia, suggesting no current or recent pneumococcal infection. Infection due to S.pneumoniae cannot be ruled out since the antigen present in the sample may be below the detection limit of the test. Normal [facility] Comment on above: Performed By: #### 5 8410-2 #### [facility] CLIA [id number] [address] ALLIED HEALTHon 07-21-2021 ALLIED HEALTH HNO ID: [id number] Author: RT Jasmeet(R) Service: Radiology Author Type: Technologist Type: Allied [...] DEPARTMENT: CT; Exam(s) Completed: PE Study SIGNATURE: Kilo Falkenstein, RT(R) PATIENT NAME: James Reyes DATE: July 21, 2021 TIME: 12:07 PM Normal [facility] Bacteria Bld Culton 07-22-19 Bacteria identified Cx Nom (Bld) CULTURE, BLOOD: No growth 5 days Normal [facility] Comment on above: Performed By: #### 6 00-7 #### [facility] CLIA [id number] [address] Bacteria identified Cx Nom (Bld) CULTURE, BLOOD: No growth 5 days Normal [facility] Comment on above: Performed By: #### 6 00-7 #### [facility] CLIA [id number] [address] CBC W Auto Differential pane l (Bld)on 07-21-2021 Basophils (Bld) [#/Vol] 0.04 10*3/uL Normal <0.11 [facility] Comment on above: Order Comment: Speci men Type: BLOOD SPECIMEN [facility] Address: [address] [place] [address] Performed By: #### 5 7021-8 #### [facility] CLIA [id number] [address] [place] [address] Basophils/100 WBC (Bld) 0.3 % Normal A [facility] Comment on above: Order Comment: Speci men Type: BLOOD SPECIMEN [facility]ing Facility: [facility] Address: [address] [place] [address] Performed By: #### 5 7021-8 #### [facility] CLIA [id number] [address] [place] [address] Differential cell count method Nom (Bld) Auto Normal [facility] Comment on above: Order Comment: Speci men Type: BLOOD SPECIMEN [facility]ing [facility] Address: [address] [place] [address] Performed By: #### 5 7021-8 #### [facility] CLIA [id number] [address] Eosinophils (Bld) [#/Vol] 0.12 10*3/uL Normal <0.46 [facility] Comment on above: Order Comment: Speci men Type: BLOOD SPECIMEN Ordering Facility: [facility] Address: [address] [place] [address] Performed By: #### 5 7021-8 #### [facility] CLIA [id number] [address] Eosinophils/100 WBC (Bld) 0.9 % Normal [facility] Comment on above: Order Comment: Speci men Type: BLOOD SPECIMEN Ordering Facility: [facility] Address: [address] [place] [address] Performed By: #### 5 7021-8 #### [facility] CLIA [id number] [address] Erythrocyte distribution width (RBC) [Ratio] 15.7 % High 11.5-15.0 [facility] Comment on above: Order Comment: Speci men Type: BLOOD SPECIMEN Ordering Facility: [facility] Address: [address] [place] [address] Performed By: #### 5 7021-8 #### [facility] CLIA [id number] [address] Hematocrit (Bld) [Volume fraction] 41.8 % Normal 39.0-51.0 [facility] Comment on above: Order Comment: Speci men Type: BLOOD SPECIMEN Order[facility] Facility: [facility] Address: [address] [place] [address] Performed By: #### 5 7021-8 #### [facility] CLIA [id number] [address] [place] Hemoglobin (Bld) [Mass/Vol] 13.0 g/dL Normal 13.0-17.0 [facility] Comment on above: Order Comment: Speci men Type: BLOOD SPECIMEN Ordering Facility: [facility] Address: [address] [place] [address] Performed By: #### 5 7021-8 #### [facility] CLIA [id number] [address] IMMATURE GRAN % 0.5 % Normal [facility] Comment on above: Order Comment: Speci men Type: BLOOD SPECIMEN Ordering Facility: [facility] Address: [address] [place] [address] Performed By: #### 5 7021-8 #### [facility] CLIA [id number] [address] IMMATURE GRAN ABS 0.07 k/uL Normal <0.10 [facility] Comment on above: Order Comment: Speci men Type: BLOOD SPECIMEN Ordering Facility: [facility] Address: [address] [place] [address] Performed By: #### 5 7021-8 #### [facility] CLIA [id number] [address] Lymphocytes (Bld) [#/Vol] 0.64 10*3/uL Low 1.00-4.00 [facility] Comment on above: Order Comment: Speci men Type: BLOOD SPECIMEN Ordering Facility: [facility] Address: [address] [place] [address] Performed By: #### 5 7021-8 #### [facility] CLIA [id number] [address] Lymphocytes/100 WBC (Bld) 4.7 % Normal [facility] Comment on above: Order Comment: Speci men Type: BLOOD SPECIMEN Ordering Facility: [facility] Address: [address] [place] [address] Performed By: #### 5 7021-8 #### [facility] CLIA [id number] [address] MCH (RBC) [Entitic mass] 28.2 pg Normal 26.0-34.0 [facility] Comment on above: Order Comment: Speci men Type: BLOOD SPECIMEN Ordering Facility: [facility] Address: [address] [place] [address] Performed By: #### 5 7021-8 #### [facility] CLIA [id number] [address] STATES OF [facility] MCHC (RBC) [Mass/Vol] 31.1 g/dL Normal 30.5-36.0 [facility] Comment on above: Order Comment: Speci men Type: BLOOD SPECIMEN Ordering Facility: [facility] Address: [address] [place] [address] Performed By: #### 5 7021-8 #### [facility] CLIA [id number] [address] MCV (RBC) [Entitic vol] 90.7 fL Normal 80.0-100.0 [facility] Comment on above: Order Comment: Speci men Type: BLOOD SPECIMEN Ordering Facility: [facility] Address: [address] [place] [address] Performed By: #### 5 7021-8 #### [facility] CLIA [id number] [address] Monocytes (Bld) [#/Vol] 0.92 10*3/uL High <0.87 [facility] Comment on above: Order Comment: Speci men Type: BLOOD SPECIMEN Ordering Facility: [facility] Address: [address] [place] [address] Performed By: #### 5 7021-8 #### [facility] CLIA [id number] [address] Monocytes/100 WBC (Bld) 6.7 % Normal [facility] Comment on above: Order Comment: Speci men Type: BLOOD SPECIMEN Ordering Facility: [facility] Address: [address] [place] [address] Performed By: #### 5 7021-8 #### [facility] CLIA [id number] [address] [place] Neutrophils (Bld) [#/Vol] 11.89 10*3/uL High 1.45-7.50 [facility] Comment on above: Order Comment: Speci men Type: BLOOD SPECIMEN Ordering Facility: [facility] Address: [address] [place] [address] Performed By: #### 5 7021-8 #### [facility] CLIA [id number] [address] Neutrophils/100 WBC (Bld) 86.9 % Normal [facility] Comment on above: Order Comment: Speci men Type: BLOOD SPECIMEN Ordering Facility: [facility] Address: [address] [place] [address] Performed By: #### 5 7021-8 #### [facility] CLIA [id number] [address] Nucleated RBC (Bld) [#/Vol] 10*3/uL Normal <0.01 [facility] Comment on above: Order Comment: Speci men Type: BLOOD SPECIMEN Ordering Facility: [facility] Address: [address] [place] [address] Performed By: #### 5 7021-8 #### [facility] CLIA [id number] [address] Nucleated RBC/100 WBC (Bld) [Ratio] 0.0 /100 WBC Normal [facility] Comment on above: Order Comment: Speci men Type: BLOOD SPECIMEN Ordering Facility: [facility] Address: [address] [place] [address] Performed By: #### 5 7021-8 #### [facility] CLIA [id number] [address] [place] Platelet mean volume (Bld) [Entitic vol] 10.1 fL Normal 9.0-12.7 [facility] Comment on above: Order Comment: Speci men Type: BLOOD SPECIMEN Ordering Facility: [facility] Address: [address] [place] [address] Performed By: #### 5 7021-8 #### [facility] CLIA [id number] [address] Platelets (Bld) [#/Vol] 407 10*3/uL High 150-400 [facility] Comment on above: Order Comment: Crystal bustillo Type: BLOOD SPECIMEN Ordering Facility: [facility] Address: [address] [place] [address] Performed By: #### 5 7021-8 #### [facility] CLIA [id number] [address] OF [facility] RBC (Bld) [#/Vol] 4.61 10*6/uL Normal 4.20-6.00 [facility] Comment on above: Order Comment: Crystal bustillo Type: BLOOD SPECIMEN Ordering Facility: [facility] Address: [address] [place] [address] Performed By: #### 5 7021-8 #### [facility] CLIA [id number] [address] WBC (Bld) [#/Vol] 13.68 10*3/uL High 3.70-11.00 [facility] Comment on above: Order Comment: Crystal bustillo Type: BLOOD SPECIMEN Ordering Facility: [facility] Address: [address] [place] [address] Performed By: #### 5 7021-8 #### [facility] CLIA [id number] [address] CONSULTon 07-21-2021 CONSULT HNO ID: [id number] Author: Whitney Johnson DO Service: Critical Care [...] not on home oxygen [facility] per EMS was 80% [...] mucous membr (more content not included)... Normal [facility] CONSULT PROGon 07-21-2021 CONSULT PROG HNO ID: [id number] Author: Nancy Gong RPh Service: Pharmacy Author [...] questions, [place] [phone]. Addendum: July 22, 2021 2:47 PM Patient's [...] the 4th dose of vancomycin. -Nancy Gong [facility] Age: [age] year old Allergies: ALLERGIES Allergen [...] Levels: No results found for: VESNA Moran, [facility] Normal [facility] CT CHEST W IVCON PEon 2021 CT CHEST W IVCON PE * * *Final Report* * * DATE OF EXAM: Jul 21 2021 12:06PM [facility] 0540 - CT CHEST W IVCON PE [...] findings. Upper abdomen: No significant additional findings. Airplane Flight Attendant Supervisor (topogram) images: No significant additional findings. IMPRESSION: [...] diameter. 8. Nonunion of median sternotomy defect. Sewer And Drain Technician: PSCB Transcribe Date/Time: Jul 21 2021 12:29P Dictated by : CHELLE CHILD MD This examination was interpreted and the report reviewed and electronically signed by: CHELLE CHILD MD on Jul 21 2021 12:41PM EST [id number] Normal [facility] Comprehensive metabolic 2000 panelon 07-21-2021 Albumin [Mass/Vol] 3.3 g/dL Low 3.9-4.9 [facility] Comment on above: Order Comment: Speci men Type: BLOOD SPECIMEN Ordering Facility: [facility] Address: [address] [address] Performed By: #### 5 8410-2 #### [facility] CLIA [id number] [address] ALP [Catalytic activity/Vol] 88 U/L Normal 38-113 [facility] Comment on above: Order Comment: Speci men Type: BLOOD SPECIMEN Ordering Facility: [facility] Address: [address] [place] [address] Performed By: #### 5 8410-2 #### [facility] CLIA [id number] [address] ALT With P-5'-P [Catalytic activity/Vol] 10 U/L Normal 10-54 [facility] Comment on above: Order Comment: Speci men Type: BLOOD SPECIMEN Ordering Facility: [facility] Address: [address] [place] [address] Performed By: #### 5 8410-2 #### [facility] CLIA [id number] [address] Anion gap [Moles/Vol] 12 mmol/L Normal 9-18 [facility] Comment on above: Order Comment: Speci men Type: BLOOD SPECIMEN Ordering Facility: [facility] Address: [address] [place] [address] Performed By: #### 5 8410-2 #### [facility] CLIA [id number] [address] [place] AST With P-5'-P [Catalytic activity/Vol] 10 U/L Low 14-40 [facility] Comment on above: Order Comment: Speci men Type: BLOOD SPECIMEN Ordering Facility: [facility] Address: [address] [place] [address] Performed By: #### 5 8410-2 #### [facility] CLIA [id number] [address] [place] Bilirubin [Mass/Vol] 0.3 mg/dL Normal 0.2-1.3 [facility] Comment on above: Order Comment: Speci men Type: BLOOD SPECIMEN Ordering Facility: [facility] Address: [address] [place] [address] Performed By: #### 5 8410-2 #### [facility] CLIA [id number] [address] [place] Calcium [Mass/Vol] 9.2 mg/dL Normal 8.5-10.2 [facility] Comment on above: Order Comment: Speci men Type: BLOOD SPECIMEN Ordering Facility: [facility] Address: [address] [place] [address] Performed By: #### 5 8410-2 #### [facility] CLIA [id number] [address] [place] Chloride [Moles/Vol] 101 mmol/L Normal 97-105 [facility] Comment on above: Order Comment: Speci men Type: BLOOD SPECIMEN Ordering Facility: [facility] Address: [address] [place] [address] Performed By: #### 5 8410-2 #### [facility] CLIA [id number] [address] [place] CO2 [Moles/Vol] 27 mmol/L Normal 22-30 [facility] Comment on above: Order Comment: Speci men Type: BLOOD SPECIMEN Ordering Facility: [facility] Address: [address] [place] [address] Performed By: #### 5 8410-2 #### [facility] CLIA [id number] [address] [place] Creatinine [Mass/Vol] 1.52 mg/dL High 0.73-1.22 [facility] Comment on above: Order Comment: Speci men Type: BLOOD SPECIMEN Ordering Facility: [facility] Address: [address] [place] [address] Performed By: #### 5 8410-2 #### [facility] CLIA [id number] 1 [place] [address] [place] ESTIMATED GLOMERULAR FILTRATION RATE 51 mL/min/1.73m??? Low >=60 [facility] Comment on above: Order Comment: Echotracie keny Type: BLOOD SPECIMEN Ordering Facility: [facility] Address: [address] [place] [address] Result Comment: Anu mated Glomerular Filtration Rate [...] GFR. Performed By: #### 5 8410-2 #### [facility] CLIA [id number] 1 [place] [address] [place] Glucose [Mass/Vol] 61 mg/dL Low 74-99 [facility] Comment on above: Order Comment: Crystal bustillo Type: BLOOD SPECIMEN Ordering Facility: [facility] Address: [address] [place] [address] Result Comment: The [place] Diabetes [employer] (ADA) provides guidance for cutoff [...] Standards of Medical Care in Diabetes 2016, [place] [employer]. Diabetes Care. 2016.39(Suppl 1). Performed By: #### 5 8410-2 #### [facility] CLIA [id number] 1 [place] [address] [place] Potassium [Moles/Vol] 4.5 mmol/L Normal 3.7-5.1 [facility] Comment on above: Order Comment: Speci men Type: BLOOD SPECIMEN Ordering Facility: [facility] Address: [address] [place] [address] Performed By: #### 5 8410-2 #### [facility] CLIA [id number] [address] STATES OF [facility] Protein [Mass/Vol] 7.0 g/dL Normal 6.3-8.0 [facility] Comment on above: Order Comment: Speci men Type: BLOOD SPECIMEN Ordering Facility: [facility] Address: [address] [place] [address] Performed By: #### 5 8410-2 #### [facility] CLIA [id number] [address] Sodium [Moles/Vol] 140 mmol/L Normal 136-144 [facility] Comment on above: Order Comment: Speci men Type: BLOOD SPECIMEN Ordering Facility: [facility] Address: [address] [place] [address] Performed By: #### 5 8410-2 #### [facility] CLIA [id number] [address] STATES OF [facility] Urea nitrogen [Mass/Vol] 25 mg/dL High 9-24 [facility] Comment on above: Order Comment: Speci men Type: BLOOD SPECIMEN Ordering Facility: [facility] Address: [address] [place] [address] Performed By: #### 5 8410-2 #### [facility] CLIA [id number] [address] [place] ED NOTEon 07-21-2021 ED NOTE HNO ID: [id number] Author: Phil Graham RN Service: Emergency Medicine Author Type: Registered Nurse Type: ED Notes Filed: 07/21/2021 4:51 PM Note Text: Pt. Needed to be placed on 15L NRB after only satting 85% consistently on 50% venti mask. Pt. Also repositioned and sat up in bed. Provider notified. Normal [facility] ED NOTE HNO ID: [id number] Author: Raza Gimenez RN Service: Emergency Medicine Author Type: Registered Nurse Type: ED Notes Filed: 07/21/2021 11:58 AM Note Text: Transported to [place]. Normal [facility] ED NOTE HNO ID: [id number] Author: Maribell Salazar RN Service: Emergency Medicine Author Type: Registered Nurse Type: ED Notes Filed: 07/21/2021 9:50 AM Note Text: ED attending at bedside assessing pt Normal [facility] ED NOTE HNO ID: [id number] Author: Maribell Salazar RN Service: Emergency Medicine Author Type: Registered Nurse Type: ED Notes Filed: 07/21/2021 9:34 AM Note Text: Patient's identity verified by patient stating name, Patient's identity verified by patient stating date, Patient's identity verified by hospital ID bracelet. Patient placed on registered nurse cardiac, patient placed on non-invasive blood pressure monitor, patient placed on continuous pulse oximetry. Alarms set and on, patient tolerating monitoring. Normal [facility] ED PROV NOTEon 07-21-2021 ED PROV NOTE HNO ID: [id number] Author: Darlin Hanna MD Service: Emergency Medicine [...] and shortness of breath. Patient come from [facility]. He was complaining of having shortness of [...] 2.3 (* (more content not included)... Normal [facility] HIGH SENSITIVITY TROPONIN To n 07-21-2021 HIGH SENSITIVITY MEDARDO 34 ng/L High <12 [facility] Comment on above: Order Comment: Speci men Type: BLOOD SPECIMEN Ordering Facility: [facility] Address: [address] [place] [address] Result Comment: When assessing risk for acute [...] MACE. Performed By: #### 5 8410-2 #### [facility] CLIA [id number] [address] HIGH SENSITIVITY MEDARDO 33 ng/L High <12 [facility] Comment on above: Order Comment: Speci men Type: BLOOD SPECIMENOrdering Facility: [facility] Address: [address] [place] [address] Result Comment: When assessing risk for acute [...] MACE. Performed By: #### 9 4500-6 #### [facility] CLIA [id number] [address] [place] [address] HIGH SENSITIVITY MEDARDO 34 ng/L High <12 [facility] Comment on above: Order Comment: Speci men Type: BLOOD SPECIMENOrdering Facility: [facility] Address: [address] [place] [address] Result Comment: When assessing risk for acute [...] day MACE. Performed By: #### H STNT ####[facility] [id number] [address] [place] MRSA Spec Ql Culton 07-22-19 22 MRSA isol Org specific cx Ql (Unsp spec) CULTURE, MRSA/MSSA SCREEN: Negative for Staphylococcus aureus Normal [facility] Comment on above: Performed By: #### 5 8410-2 #### [facility] CLIA [id number] [address] [place] [address] [place] MRSA isol Org specific cx Ql (Unsp spec) CULTURE, MRSA/MSSA SCREEN: Negative for Staphylococcus aureus Normal [facility] Comment on above: Performed By: #### 1 3317-3 #### [facility] CLIA [id number] [address] [place] Magnesium SerPl-mCncon 07-21 Magnesium [Mass/Vol] 2.0 mg/dL Normal 1.7-2.3 [facility] Comment on above: Order Comment: Speci men Type: BLOOD SPECIMEN Ordering Facility: [facility] Address: [address] [place] [address] Performed By: #### 5 8410-2 #### [facility] CLIA [id number] [address] NT-proBNP SerPl-mCncon 07-21 Natriuretic peptide.B prohormone N-Terminal [Mass/Vol] 872 pg/mL High <125 [facility] Comment on above: Order Comment: Speci men Type: BLOOD SPECIMEN Ordering Facility: [facility] Address: [address] [place] [address] Performed By: #### 5 8410-2 #### [facility] CLIA [id number] [address] [place] [address] [place] PROCALCITONIN (LAB)on 2021 Procalcitonin [Mass/Vol] 0.15 ng/mL High <0.09 [facility] Comment on above: Order Comment: Speci men Type: BLOOD SPECIMEN Ordering Facility: [facility] Address: [address] [place] [address] Result Comment: For a guided interpretation of test results, please visit the Change in Procalcitonin Calculator, [email or web address]. Performed By: #### 5 8410-2 #### [facility] CLIA [id number] [address] [place] SARS-CoV-2 RNA Resp Ql JONA+p robeon 04-06-2022 SARS-CoV-2 (COVID-19) RNA JOAN+probe Ql (Resp) COVID 19 RESULT: SARS-CoV-2 (Agent of COVID-19) Not Detected by RT-PCR or equivalent method. This test has been authorized by FDA under an Emergency Use Authorization (EUA). Normal [facility] Comment on above: Performed By: #### 9 4500-6 #### [facility] CLIA [id number] [address] [place] Basic Metabolic Panelon 01-2 0-2020 Calcium [Mass/Vol] 9.3 mg/dL Normal 8.4-10.4 [facility] Comment on above: Performed By: #### B MP3, MG3, CK3, TROPN #### [facility] [address] [place] [address] Glucose [Mass/Vol] 82 mg/dL Normal 70-100 [facility] Comment on above: Performed By: #### B MP3, MG3, CK3, TROPN #### [facility] [address] [place] [address] Anion gap [Moles/Vol] 9 Normal [facility] Comment on above: Performed By: #### B MP3, MG3, CK3, TROPN #### [facility] [address] [place] [address] CO2 [Moles/Vol] 25 mmol/L Normal 22-30 [facility] Comment on above: Performed By: #### B MP3, MG3, CK3, TROPN #### [facility] [address] [place] [address] Creatinine [Mass/Vol] 1.65 mg/dL High 0.52-1.25 [facility] Comment on above: Performed By: #### B MP3, MG3, CK3, TROPN #### [facility] [address] [place] [address] GFR/1.73 sq M predicted among blacks MDRD (S/P/Bld) [Vol rate/Area] 51.4 mL/min/{1.73_m2} Normal >60 [facility] Comment on above: Performed By: #### B MP3, MG3, CK3, TROPN #### [facility] [address] [place] [address] GFR/1.73 sq M predicted among non-blacks MDRD (S/P/Bld) [Vol rate/Area] 42.4 mL/min/{1.73_m2} Normal >60 [facility] Comment on above: Result Comment: Sour ce- MDRD equation with creatinine calibration to IDMS(NKDEP) eGFR not recommended for drug dose adjustment Performed By: #### B MP3, MG3, CK3, TROPN #### [facility] [address] [place] [address] Urea nitrogen [Mass/Vol] 32 mg/dL High 7-20 [facility] Comment on above: Performed By: #### B MP3, MG3, CK3, TROPN #### [facility] [address] [address] Potassium [Moles/Vol] 5.5 mmol/L High 3.5-5.1 [facility] Comment on above: Performed By: #### B MP3, MG3, CK3, TROPN #### [facility] [address] [place] [address] Chloride [Moles/Vol] 107 mmol/L Normal 98-107 [facility] Comment on above: Performed By: #### B MP3, MG3, CK3, TROPN #### [facility] [address] [place] [address] Sodium [Moles/Vol] 141 mmol/L Normal 135-145 [facility] Comment on above: Performed By: #### B MP3, MG3, CK3, TROPN #### [facility] [address] [place] [address] Basic Metabolic PanelOrdered By: Barry Guadalupe on 05-06-2019 Anion gap [Moles/Vol] 9 mmol/L [facility] Work Phone: Calcium [Mass/Vol] 9.3 mg/dL 8.4 - 10. 4 mg/dL [facility] Work Phone: Chloride [Moles/Vol] 107 mmol/L 98 - 10 7 mmol/L [facility] Work Phone: [phone] CO2 [Moles/Vol] 25 mmol/L 22 - 30 mmol/L [facility] Work Phone: [phone] Creatinine [Mass/Vol] 1.65 mg/dL High 0.52 - 1.25 mg/dL [facility] Work Phone: [phone] EGFR IF NonAfrican [place]ym[place] 42.4 mL/min >60 [facility] Work Phone: [phone] Comment on above: Source- MDRD equatio n with creatinine calibration to IDMS(NKDEP) eGFR not recommended for drug dose adjustment GFR/1.73 sq M.predicted among blacks MDRD (S/P/Bld) [Vol rate/Area] 51.4 mL/min/{1.73_m2} >60 [facility] Work Phone: [phone] Glucose [Mass/Vol] 82 mg/dL 70 - 100 mg/dL [employer] Work Phone: [phone] Interpretation and review of laboratory results Abnormal [facility] Work Phone: [phone] Potassium [Moles/Vol] 5.5 mmol/L High 3.5 - 5.1 mmol/L [facility] Work Phone: [phone] Sodium [Moles/Vol] 141 mmol/L 135 - 145 mmol/L [facility] Work Phone: [phone] Urea nitrogen [Mass/Vol] 32 mg/dL High 7 - 20 mg/dL [facility] Work Phone: CKon 05-06-2019 CK [Catalytic activity/Vol] 49 U/L Normal 30-170 [facility] [employer] Comment on above: Performed By: #### B MP3, MG3, CK3, TROPN #### [facility] [address] [place] [address] CKOrdered By: Barry mart 05-06-2019 CK [Catalytic activity/Vol] 49 U/L 30 - 170 U/L [employer] Work Phone: Magnesiumon 05-06-2019 Magnesium [Mass/Vol] 2.3 mg/dL Normal 1.6-2.3 [facility] [employer] Comment on above: Performed By: #### B MP3, MG3, CK3, TROPN #### [employer] [address] [place] [address] MagnesiumOrdered By: Barry Guadalupe on 05-06-2019 Magnesium [Mass/Vol] 2.3 mg/dL 1.6 - 2 .3 mg/dL [employer] Work Phone: No Panel InformationOrdered By: Barry Guadalupe on 05-06-2019 Test Performed by [employer] [facility], [address] , [place] [address] [employer] Work Phone: Troponin Ion 05-06-2019 Troponin I.cardiac [Mass/Vol] ng/mL Normal 0.000-0.034 [facility] [employer] Comment on above: Result Comment: . Performed By: #### B MP3, MG3, CK3, TROPN #### [facility] [address] [place] [address] Troponin [id number] By: Yusra Guadalupe on 05-06-2019 Troponin I.cardiac [Mass/Vol] ng/mL 0 - 0.034 ng/mL [employer] Work Phone: Comment on above: . Test Performed by [employer], [address]. [place] [address] [employer] Work Phone: CR Knee 1 or 2 Views Bilater yolanda 05-01-2019 CR Knee 1 or 2 Views Bilateral Patient Name: JAMES REEYS Diagnostic Radiology Exam Date/Time 05/01/2019 14:40:00 EST Exam CR Knee 1 or 2 Views Bilateral Ordering Physician MD LAI RYAN Accession Number [id number] CPT4 Codes 12665 () Reason For Exam bilateral knee pain [...] effusion is appreciated. Normal osseous mineralization. Impression: 1.\X09\Advanced narrowing of the right and left femorotibial joint spaces, medial greater than lateral. 2.\X09\Advanced, asymmetric narrowing of the lateral patellofemoral joint space. 3.\X09\No joint effusions are identified. Report Dictated on Final Dictating Physician: MD STEPHENSON JASON Signed Date and Time: 05/01/2019 3:50 pm Signed by: MD STEPHENSON JASON Transcribed Date and Time: 05/01/2019 3:52 Normal [facility] CR Knee Standing Bilateralon 05-01-2019 CR Knee Standing Bilateral Patient Name: JAMES REYES Diagnostic Radiology Exam Date/Time 05/01/2019 14:50:00 EST Exam CR Knee Standing AP Bilateral Ordering Physician MD LAI RYAN Accession Number [id number] CPT4 Codes 42395 () Reason For Exam bilateral knee pain [...] effusion is appreciated. Normal osseous mineralization. Impression: 1.\X09\Advanced narrowing of the right and left femorotibial joint spaces, medial greater than lateral. 2.\X09\Advanced, asymmetric narrowing of the lateral patellofemoral joint space. 3.\X09\No joint effusions are identified. Report Dictated on Final Dictating Physician: MD STEPHENSON JASON Signed Date and Time: 05/01/2019 3:50 pm Signed by: MD STEPHENSON JASON Transcribed Date and Time: 05/01/2019 3:52 Normal [facility] XR KNEE BILATERAL LIMITEDOrd ered By: Haydee Lai on 05-01-2019 Patient Name: JAMES REYES ---Diagnostic Radiology--- Exam Date/Time 05/01/2019 14:40:00 EST Exam CR Knee 1 or 2 Views Bilateral Ordering Physician MD LAI RYAN Accession Number [id number] CPT4 Codes 15325 () Reason For Exam bilateral knee pain [...] Phone: Joe, [facility] Incoming Radiology Results From [facility] - 05/01/2019 3:52 PM EST Patient Name: JAMES REYES ---Diagnostic Radiology--- Exam Date/Time 05/01/2019 14:40:00 EST Exam CR Knee 1 or 2 Views Bilateral Ordering Physician MD LAI RYAN Accession Number [id number] CPT4 Codes 07600 () Reason For Exam bilateral knee pain [...] Ordering Physician MD LAI RYAN Accession Number [id number] CPT4 Codes 91807 () Reason For Exam bilateral knee pain [...] Phone: [facility], [facility]iology Results From [facility] - 05/01/2019 3:52 PM EST Patient Name: JAMES REYES ---Diagnostic Radiology--- Exam Date/Time 05/01/2019 14:50:00 EST Exam CR Knee Standing AP Bilateral Ordering Physician MD LAI RYAN Accession Number [id number] CPT4 Codes 22200 () Reason For Exam bilateral knee pain [...] Physician MD KOMAL, MELQUIADES [place] Accession Number [id number] CPT4 Codes 46899 () Reason For Exam right shoulder pain [...] Transcribed Date and Time: 09/06/2018 4:20 Normal [facility] CULTURE ANAEROBEon 8 CULTURE ANAEROBE CULTURE ANAEROBE --> Status: F No growth of anaerobes at 5 days. [facility] Comment on above: Performed By: #### M G3, BMP3 ####The performing lab is in the report. CULT./ST. BACTERIAon 018 CULT./ST. BACTERIA CULT./ST. BACTERIA - -> Status: F Mixed skin tayler present. STAIN GRAM --> Status: F Few polymorphonuclear cells/lpf. No organisms seen. No organisms seen. [facility] Comment on above: Performed By: #### M G3, BMP3 ####The performing lab is in the report. CULTURE MYCOBACTERIA Conc.on 11-28-2017 CULTURE MYCOBACTERIA Conc. CULTURE MYCOBACTERIA Conc. --> Status: F Test performed at [facility] Microbiology Lab No acid-fast bacilli isolated after 6 weeks incubation. No acid-fast bacilli isolated after 6 weeks incubation. Normal [facility] Comment on above: Order Comment: or co llected Performed By: #### H EMDF, APTT, HA1C2 ####The performing lab is in the report. CULTURE FUNGUSon 11-06-2017 CULTURE FUNGUS CULTURE FUNGUS --> Status: F No fungus isolated after 21 days. [facility] Comment on above: Order Comment: or co llected Performed By: #### H EMDF, APTT, HA1C2 ####The performing lab is in the report. Basic Metabolic Panelon 10-16 Anion gap 3 molar conc 7 Normal [facility] Comment on above: Performed By: #### M G3, BMP3 ####The performing lab is in the report. Calcium mass conc 8.2 mg/dL Low 8.4-10.4 [facility] Comment on above: Performed By: #### Ap G3, BMP3 ####The performing lab is in the report. CO2 molar conc 29 mmol/L Normal 22-30 [facility] Comment on above: Performed By: #### Ap G3, BMP3 ####The performing lab is in the report. Glucose mass conc 174 mg/dL High 70-100 [facility] Comment on above: Performed By: #### Ap G3, BMP3 ####The performing lab is in the report. Urea nitrogen mass conc 12 mg/dL Normal 7-20 [facility] Comment on above: Performed By: #### Ap G3, BMP3 ####The performing lab is in the report. Creatinine mass conc 0.74 mg/dL Normal 0.52-1.25 [facility] Comment on above: Performed By: #### Ap G3, BMP3 ####The performing lab is in the report. GFR/1.73 sq M predicted among blacks MDRD vol rate/area (S/P/Bld) mL/min/{1.73_m2} Normal >60 [facility] Comment on above: Performed By: #### Ap G3, BMP3 ####The performing lab is in the report. GFR/1.73 sq M predicted among non-blacks MDRD vol rate/area (S/P/Bld) mL/min/{1.73_m2} Normal >60 [facility] Comment on above: Result Comment: Sour ce- MDRD equation with creatinine calibration to IDMS(NKDEP) eGFR not recommended for drug dose adjustment Performed By: #### Ap G3, BMP3 ####The performing lab is in the report. Potassium molar conc 3.5 mmol/L Normal 3.5-5.1 [facility] Comment on above: Performed By: #### Ap G3, BMP3 ####The performing lab is in the report. Chloride molar conc 105 mmol/L Normal 98-107 [facility] Comment on above: Performed By: #### Ap G3, BMP3 ####The performing lab is in the report. Sodium molar conc 141 mmol/L Normal 137-145 [facility] Comment on above: Performed By: #### Ap G3, BMP3 ####The performing lab is in the report. Hemogram w/ Autodiffon 11-03 Abs Baso Cnt 0.0 10*3/uL Normal 0.0-0.2 [facility] Comment on above: Performed By: #### Ap G3, BMP3 ####The performing lab is in the report. Abs Neutrophile Cnt 2.8 10*3/uL Normal 1.8-7.0 [facility] Comment on above: Performed By: #### Ap G3, BMP3 ####The performing lab is in the report. Basophils/100 WBC Auto (Bld) 1.0 % Normal 0.0-2.0 [facility] Comment on above: Performed By: #### Ap G3, BMP3 ####The performing lab is in the report. Eosinophils Auto #/vol (Bld) 0.4 10*3/uL Normal 0.0-0.5 [facility] Comment on above: Performed By: #### Ap G3, BMP3 ####The performing lab is in the report. Eosinophils/100 WBC Auto (Bld) 8.0 % High 1.0-6.0 [facility] Comment on above: Performed By: #### Ap G3, BMP3 ####The performing lab is in the report. Erythrocyte distribution width Auto Ratio (RBC) 16.9 % High 11.5-14.5 [facility] Comment on above: Performed By: #### Ap G3, BMP3 ####The performing lab is in the report. Granulocytes/100 WBC (Bld) 64.3 % Normal 40.0-80.0 [facility] Comment on above: Performed By: #### Ap G3, BMP3 ####The performing lab is in the report. Hematocrit Auto Volume Fraction (Bld) 22.5 % Low 40.0-52.0 [facility] Comment on above: Performed By: #### Ap G3, BMP3 ####The performing lab is in the report. Hemoglobin mass conc (Bld) 7.4 g/dL Low 13.0-18.0 [facility] Comment on above: Performed By: #### Ap G3, BMP3 ####The performing lab is in the report. Lymphocytes Auto #/vol (Bld) 0.7 10*3/uL Low 1.0-4.3 [facility] Comment on above: Performed By: #### Ap G3, BMP3 ####The performing lab is in the report. Lymphocytes/100 WBC Auto (Bld) 15.6 % Low 20.0-40.0 [facility] Comment on above: Performed By: #### Ap G3, BMP3 ####The performing lab is in the report. MCH Auto Entitic mass (RBC) 28.0 pg Normal 26.0-34.0 [facility] Comment on above: Performed By: #### Ap G3, BMP3 ####The performing lab is in the report. MCHC Auto mass conc (RBC) 33.1 % Normal 32.0-36.0 [facility] Comment on above: Performed By: #### Ap G3, BMP3 ####The performing lab is in the report. MCV Auto Entitic volume (RBC) 84.8 fL Normal 80.0-98.0 [facility] Comment on above: Performed By: #### Ap G3, BMP3 ####The performing lab is in the report. Monocytes Auto #/vol (Bld) 0.5 10*3/uL Normal 0.0-0.8 [facility] Comment on above: Performed By: #### Ap G3, BMP3 ####The performing lab is in the report. Monocytes/100 WBC Auto (Bld) 11.1 % High 2.0-10.0 [facility] Comment on above: Performed By: #### Ap G3, BMP3 ####The performing lab is in the report. Platelet mean volume Auto Entitic volume (Bld) 8.2 fL Normal 7.4-10.4 [facility] Comment on above: Performed By: #### Ap G3, BMP3 ####The performing lab is in the report. Platelets Auto #/vol (Bld) 287 10*3/uL Normal 140-440 [facility] Comment on above: Performed By: #### M G3, BMP3 ####The performing lab is in the report. RBC Auto #/vol (Bld) 2.65 10*6/uL Low 4.40-5.90 [facility] Comment on above: Performed By: #### M G3, BMP3 ####The performing lab is in the report. WBC Auto #/vol (Bld) 4.4 10*3/uL Normal 3.6-10.7 [facility] Comment on above: Performed By: #### M G3, BMP3 ####The performing lab is in the report. Prothrombin Timeon 8 INR Coag RelTime (PPP) 1.0 Normal 0.9-1.1 [facility] Comment on above: Result Comment: Lux mmended [...] prevent Myocardial Infarction Performed By: #### Ap G3, BMP3 ####The performing lab is in the report. Prothrombin time (PT) Coag time (PPP) 10.7 s Normal 9.0-12.0 [facility] Comment on above: Result Comment: . Performed By: #### Ap G3, BMP3 ####The performing lab is in the report. TS GELon 11-03-2017 TS GEL ABO Group: A Rh, Gel: POS Antibody Screen Gel: NEG Normal [facility] Comment on above: Performed By: #### Ap G3, BMP3 ####The performing lab is in the report. Basic Metabolic Panelon 10-15 Anion gap 3 molar conc 6 Normal [facility] Comment on above: Performed By: #### Ap G3, BMP3 ####The performing lab is in the report. Calcium mass conc 8.9 mg/dL Normal 8.4-10.4 [facility] Comment on above: Performed By: #### M G3, BMP3 ####The performing lab is in the report. CO2 molar conc 30 mmol/L Normal 22-30 [facility] Comment on above: Performed By: #### M G3, BMP3 ####The performing lab is in the report. Glucose mass conc 101 mg/dL High 70-100 [facility] Comment on above: Performed By: #### M G3, BMP3 ####The performing lab is in the report. Urea nitrogen mass conc 8 mg/dL Normal 7-20 [facility] Comment on above: Performed By: #### M G3, BMP3 ####The performing lab is in the report. Creatinine mass conc 0.62 mg/dL Normal 0.52-1.25 [facility] Comment on above: Performed By: #### M G3, BMP3 ####The performing lab is in the report. GFR/1.73 sq M predicted among blacks MDRD vol rate/area (S/P/Bld) mL/min/{1.73_m2} Normal >60 [facility] Comment on above: Performed By: #### M G3, BMP3 ####The performing lab is in the report. GFR/1.73 sq M predicted among non-blacks MDRD vol rate/area (S/P/Bld) mL/min/{1.73_m2} Normal >60 [facility] Comment on above: Result Comment: Sour ce- MDRD equation with creatinine calibration to IDMS(NKDEP) eGFR not recommended for drug dose adjustment Performed By: #### M G3, BMP3 ####The performing lab is in the report. Potassium molar conc 2.9 mmol/L Low 3.5-5.1 [facility] Comment on above: Performed By: #### M G3, BMP3 ####The performing lab is in the report. Chloride molar conc 100 mmol/L Normal 98-107 [facility] Comment on above: Performed By: #### M G3, BMP3 ####The performing lab is in the report. Sodium molar conc 137 mmol/L Normal 137-145 [facility] Comment on above: Performed By: #### M G3, BMP3 ####The performing lab is in the report. Glucose,Bedsideon 10-30-2017 Glucose mass conc 131 mg/dL High 70-[facility] Comment on above: Result Comment: Test performed by glucose meter. Results may be 10%-15% lowerthan serum/plasma values. (CLIA ID [id number]) Performed By: #### Ap G3, BMP3 ####The performing lab is in the report. Glucose mass conc 163 mg/dL High 70-100 [facility] Comment on above: Result Comment: Test performed by glucose meter. Results may be 10%-15% lowerthan serum/plasma values. (CLIA ID [id number]) Performed By: #### M G3, BMP3 ####The performing lab is in the report. Hemogram w/ Autodiffon 10-30 Abs Baso Cnt 0.0 10*3/uL Normal 0.0-0.2 [facility] Comment on above: Performed By: #### Ap G3, BMP3 ####The performing lab is in the report. Abs Neutrophile Cnt 2.1 10*3/uL Normal 1.8-7.0 [facility] Comment on above: Performed By: #### Ap G3, BMP3 ####The performing lab is in the report. Basophils/100 WBC Auto (Bld) 0.8 % Normal 0.0-2.0 [facility] Comment on above: Performed By: #### Ap G3, BMP3 ####The performing lab is in the report. Eosinophils Auto #/vol (Bld) 0.3 10*3/uL Normal 0.0-0.5 [facility] Comment on above: Performed By: #### Ap G3, BMP3 ####The performing lab is in the report. Eosinophils/100 WBC Auto (Bld) 8.5 % High 1.0-6.0 [facility] Comment on above: Performed By: #### M G3, BMP3 ####The performing lab is in the report. Erythrocyte distribution width Auto Ratio (RBC) 16.6 % High 11.5-14.5 [facility] Comment on above: Performed By: #### Ap G3, BMP3 ####The performing lab is in the report. Granulocytes/100 WBC (Bld) 60.6 % Normal 40.0-80.0 [facility] Comment on above: Performed By: #### Ap G3, BMP3 ####The performing lab is in the report. Hematocrit Auto Volume Fraction (Bld) 23.9 % Low 40.0-52.0 [facility] Comment on above: Performed By: #### Ap G3, BMP3 ####The performing lab is in the report. Hemoglobin mass conc (Bld) 8.0 g/dL Low 13.0-18.0 [facility] Comment on above: Performed By: #### Ap G3, BMP3 ####The performing lab is in the report. Lymphocytes Auto #/vol (Bld) 0.6 10*3/uL Low 1.0-4.3 [facility] Comment on above: Performed By: #### Ap G3, BMP3 ####The performing lab is in the report. Lymphocytes/100 WBC Auto (Bld) 17.4 % Low 20.0-40.0 [facility] Comment on above: Performed By: #### Ap G3, BMP3 ####The performing lab is in the report. MCH Auto Entitic mass (RBC) 27.7 pg Normal 26.0-34.0 [facility] Comment on above: Performed By: #### Ap G3, BMP3 ####The performing lab is in the report. MCHC Auto mass conc (RBC) 33.3 % Normal 32.0-36.0 [facility] Comment on above: Performed By: #### Ap G3, BMP3 ####The performing lab is in the report. MCV Auto Entitic volume (RBC) 83.4 fL Normal 80.0-98.0 [facility] Comment on above: Performed By: #### Ap G3, BMP3 ####The performing lab is in the report. Monocytes Auto #/vol (Bld) 0.4 10*3/uL Normal 0.0-0.8 [facility] Comment on above: Performed By: #### Ap G3, BMP3 ####The performing lab is in the report. Monocytes/100 WBC Auto (Bld) 12.7 % High 2.0-10.0 [facility] Comment on above: Performed By: #### Ap G3, BMP3 ####The performing lab is in the report. Platelet mean volume Auto Entitic volume (Bld) 8.2 fL Normal 7.4-10.4 [facility] Comment on above: Performed By: #### Ap G3, BMP3 ####The performing lab is in the report. Platelets Auto #/vol (Bld) 266 10*3/uL Normal 140-440 [facility] Comment on above: Performed By: #### Ap G3, BMP3 ####The performing lab is in the report. RBC Auto #/vol (Bld) 2.87 10*6/uL Low 4.40-5.90 [facility] Comment on above: Performed By: #### Ap Sanchez, BMP3 ####The performing lab is in the report. WBC Auto #/vol (Bld) 3.5 10*3/uL Low 3.6-10.7 [facility] Comment on above: Performed By: #### Ap G3, BMP3 ####The performing lab is in the report. Magnesiumon 10-30-2017 Magnesium mass conc 1.6 mg/dL Normal 1.6-2.3 [facility] Comment on above: Performed By: #### Ap G3, BMP3 ####The performing lab is in the report. Phosphoruson 10-30-2017 Phosphate mass conc 3.1 mg/dL Normal 2.5-4.5 [facility] Comment on above: Performed By: #### Ap G3, BMP3 ####The performing lab is in the report. Basic Metabolic Panelon 10-15 Anion gap 3 molar conc 6 Normal [facility] Comment on above: Performed By: #### Ap G3, BMP3 ####The performing lab is in the report. Calcium mass conc 8.8 mg/dL Normal 8.4-10.4 [facility] Comment on above: Performed By: #### Ap G3, BMP3 ####The performing lab is in the report. CO2 molar conc 30 mmol/L Normal 22-30 [facility] Comment on above: Performed By: #### Ap G3, BMP3 ####The performing lab is in the report. Creatinine mass conc 0.65 mg/dL Normal 0.52-1.25 [facility] Comment on above: Performed By: #### Ap G3, BMP3 ####The performing lab is in the report. GFR/1.73 sq M predicted among blacks MDRD vol rate/area (S/P/Bld) mL/min/{1.73_m2} Normal >60 [facility] Comment on above: Performed By: #### Ap G3, BMP3 ####The performing lab is in the report. GFR/1.73 sq M predicted among non-blacks MDRD vol rate/area (S/P/Bld) mL/min/{1.73_m2} Normal >60 [facility] Comment on above: Result Comment: Sour ce- MDRD equation with creatinine calibration to IDMS(NKDEP) eGFR not recommended for drug dose adjustment Performed By: #### Ap G3, BMP3 ####The performing lab is in the report. Glucose mass conc 100 mg/dL Normal 70-100 [facility] Comment on above: Performed By: #### Ap G3, BMP3 ####The performing lab is in the report. Urea nitrogen mass conc 9 mg/dL Normal 7-20 [facility] Comment on above: Performed By: #### Ap G3, BMP3 ####The performing lab is in the report. Potassium molar conc 3.0 mmol/L Low 3.5-5.1 [facility] Comment on above: Performed By: #### Ap G3, BMP3 ####The performing lab is in the report. Sodium molar conc 135 mmol/L Low 137-145 [facility] Comment on above: Performed By: #### Ap G3, BMP3 ####The performing lab is in the report. Chloride molar conc 99 mmol/L Normal 98-107 [facility] Comment on above: Performed By: #### Ap G3, BMP3 ####The performing lab is in the report. CULTURE ANAEROBEon 8 CULTURE ANAEROBE CULTURE ANAEROBE --> Status: F No growth of anaerobes at 5 days. Normal [facility] Comment on above: Order Comment: ORor Performed By: #### M G3, BMP3 ####The performing lab is in the report. Glucose,Bedsideon 10-29-2017 Glucose mass conc 124 mg/dL High 70-100 [facility] Comment on above: Result Comment: Test performed by glucose meter. Results may be 10%-15% lowerthan serum/plasma values. (CLIA ID [id number]) Performed By: #### M G3, BMP3 ####The performing lab is in the report. Glucose mass conc 208 mg/dL High 70-100 [facility] Comment on above: Result Comment: Test performed by glucose meter. Results may be 10%-15% lowerthan serum/plasma values. (CLIA ID [id number]) Performed By: #### M G3, BMP3 ####The performing lab is in the report. Glucose mass conc 139 mg/dL High 70-100 [facility] Comment on above: Result Comment: Test performed by glucose meter. Results may be 10%-15% lowerthan serum/plasma values. (CLIA ID [id number]) Performed By: #### M G3, BMP3 ####The performing lab is in the report. Hemogram w/ Autodiffon 10-29 Abs Baso Cnt 0.0 10*3/uL Normal 0.0-0.2 [facility] Comment on above: Performed By: #### M G3, BMP3 ####The performing lab is in the report. Abs Neutrophile Cnt 2.4 10*3/uL Normal 1.8-7.0 [facility] [employer] Comment on above: Performed By: #### M G3, BMP3 ####The performing lab is in the report. Basophils/100 WBC Auto (Bld) 0.7 % Normal 0.0-2.0 [facility] Comment on above: Performed By: #### M G3, BMP3 ####The performing lab is in the report. Eosinophils Auto #/vol (Bld) 0.2 10*3/uL Normal 0.0-0.5 [facility] Comment on above: Performed By: #### Ap G3, BMP3 ####The performing lab is in the report. Eosinophils/100 WBC Auto (Bld) 6.1 % High 1.0-6.0 [facility] Comment on above: Performed By: #### M G3, BMP3 ####The performing lab is in the report. Erythrocyte distribution width Auto Ratio (RBC) 16.4 % High 11.5-14.5 [facility] Comment on above: Performed By: #### Ap G3, BMP3 ####The performing lab is in the report. Granulocytes/100 WBC (Bld) 65.0 % Normal 40.0-80.0 [facility] Comment on above: Performed By: #### Ap G3, BMP3 ####The performing lab is in the report. Hematocrit Auto Volume Fraction (Bld) 22.2 % Low 40.0-52.0 [facility] Comment on above: Performed By: #### Ap G3, BMP3 ####The performing lab is in the report. Hemoglobin mass conc (Bld) 7.3 g/dL Low 13.0-18.0 [facility] Comment on above: Performed By: #### Ap G3, BMP3 ####The performing lab is in the report. Lymphocytes Auto #/vol (Bld) 0.6 10*3/uL Low 1.0-4.3 [facility] Comment on above: Performed By: #### Ap G3, BMP3 ####The performing lab is in the report. Lymphocytes/100 WBC Auto (Bld) 16.6 % Low 20.0-40.0 [facility] Comment on above: Performed By: #### Ap G3, BMP3 ####The performing lab is in the report. MCH Auto Entitic mass (RBC) 27.6 pg Normal 26.0-34.0 [facility] Comment on above: Performed By: #### M G3, BMP3 ####The performing lab is in the report. MCHC Auto mass conc (RBC) 33.1 % Normal 32.0-36.0 [facility] Comment on above: Performed By: #### Ap G3, BMP3 ####The performing lab is in the report. MCV Auto Entitic volume (RBC) 83.4 fL Normal 80.0-98.0 [facility] Comment on above: Performed By: #### Ap G3, BMP3 ####The performing lab is in the report. Monocytes Auto #/vol (Bld) 0.4 10*3/uL Normal 0.0-0.8 [facility] Comment on above: Performed By: #### Ap G3, BMP3 ####The performing lab is in the report. Monocytes/100 WBC Auto (Bld) 11.6 % High 2.0-10.0 [facility] Comment on above: Performed By: #### Ap G3, BMP3 ####The performing lab is in the report. Platelet mean volume Auto Entitic volume (Bld) 8.3 fL Normal 7.4-10.4 [facility] Comment on above: Performed By: #### Ap Sanchez, BMP3 ####The performing lab is in the report. Platelets Auto #/vol (Bld) 251 10*3/uL Normal 140-440 [facility] Comment on above: Performed By: #### Ap Sanchez, BMP3 ####The performing lab is in the report. RBC Auto #/vol (Bld) 2.66 10*6/uL Low 4.40-5.90 [facility] Comment on above: Performed By: #### Ap G3, BMP3 ####The performing lab is in the report. WBC Auto #/vol (Bld) 3.7 10*3/uL Normal 3.6-10.7 [facility] Comment on above: Performed By: #### Ap G3, BMP3 ####The performing lab is in the report. Magnesiumon 10-29-2017 Magnesium mass conc 1.6 mg/dL Normal 1.6-2.3 [facility] Comment on above: Performed By: #### Ap G3, BMP3 ####The performing lab is in the report. Phosphoruson 10-29-2017 Phosphate mass conc 2.8 mg/dL Normal 2.5-4.5 [facility] Comment on above: Performed By: #### M G3, BMP3 ####The performing lab is in the report. Basic Metabolic Panelon 10-15 Calcium mass conc 8.9 mg/dL Normal 8.4-10.4 [facility] Comment on above: Performed By: #### M G3, BMP3 ####The performing lab is in the report. Anion gap 3 molar conc 6 Normal [facility] Comment on above: Performed By: #### M G3, BMP3 ####The performing lab is in the report. CO2 molar conc 31 mmol/L High 22-30 [facility] Comment on above: Performed By: #### M G3, BMP3 ####The performing lab is in the report. Creatinine mass conc 0.66 mg/dL Normal 0.52-1.25 [facility] Comment on above: Performed By: #### M G3, BMP3 ####The performing lab is in the report. GFR/1.73 sq M predicted among blacks MDRD vol rate/area (S/P/Bld) mL/min/{1.73_m2} Normal >60 [facility] Comment on above: Performed By: #### M G3, BMP3 ####The performing lab is in the report. GFR/1.73 sq M predicted among non-blacks MDRD vol rate/area (S/P/Bld) mL/min/{1.73_m2} Normal >60 [facility] Comment on above: Result Comment: Sour ce- MDRD equation with creatinine calibration to IDMS(NKDEP) eGFR not recommended for drug dose adjustment Performed By: #### M G3, BMP3 ####The performing lab is in the report. Glucose mass conc 105 mg/dL High 70-100 [facility] Comment on above: Performed By: #### M G3, BMP3 ####The performing lab is in the report. Urea nitrogen mass conc 11 mg/dL Normal 7-20 [facility] Comment on above: Performed By: #### M G3, BMP3 ####The performing lab is in the report. Chloride molar conc 101 mmol/L Normal 98-107 [facility] Comment on above: Performed By: #### M G3, BMP3 ####The performing lab is in the report. Potassium molar conc 3.4 mmol/L Low 3.5-5.1 [facility] Comment on above: Performed By: #### M G3, BMP3 ####The performing lab is in the report. Sodium molar conc 137 mmol/L Normal 137-145 [facility] Comment on above: Performed By: #### M G3, BMP3 ####The performing lab is in the report. Glucose,Bedsideon 10-28-2017 Glucose mass conc 135 mg/dL High 70-100 [facility] Comment on above: Result Comment: Test performed by glucose meter. Results may be 10%-15% lowerthan serum/plasma values. (CLIA ID [id number]) Performed By: #### M G3, BMP3 ####The performing lab is in the report. Glucose mass conc 145 mg/dL High 70-100 [facility] Comment on above: Result Comment: Test performed by glucose meter. Results may be 10%-15% lowerthan serum/plasma values. (CLIA ID [id number]) Performed By: #### M G3, BMP3 ####The performing lab is in the report. Glucose mass conc 133 mg/dL High 70-100 [facility] Comment on above: Result Comment: Test performed by glucose meter. Results may be 10%-15% lowerthan serum/plasma values. (CLIA ID [id number]) Performed By: #### M G3, BMP3 ####The performing lab is in the report. Glucose mass conc 149 mg/dL High 70-100 [facility] Comment on above: Result Comment: Test performed by glucose meter. Results may be 10%-15% lowerthan serum/plasma values. (CLIA ID [id number]) Performed By: #### M G3, BMP3 ####The performing lab is in the report. Hemogram w/ Autodiffon 10-28 Abs Baso Cnt 0.0 10*3/uL Normal 0.0-0.2 [facility] Comment on above: Performed By: #### Ap G3, BMP3 ####The performing lab is in the report. Abs Neutrophile Cnt 2.5 10*3/uL Normal 1.8-7.0 [facility] Comment on above: Performed By: #### Ap G3, BMP3 ####The performing lab is in the report. Basophils/100 WBC Auto (Bld) 0.7 % Normal 0.0-2.0 [facility] Comment on above: Performed By: #### Ap Sanchez, BMP3 ####The performing lab is in the report. Eosinophils Auto #/vol (Bld) 0.2 10*3/uL Normal 0.0-0.5 [facility] Comment on above: Performed By: ###Jose Sanchez, BMP3 ####The performing lab is in the report. Eosinophils/100 WBC Auto (Bld) 5.5 % Normal 1.0-6.0 [facility] Comment on above: Performed By: ###Jose Sanchez, BMP3 ####The performing lab is in the report. Erythrocyte distribution width Auto Ratio (RBC) 16.1 % High 11.5-14.5 [facility] Comment on above: Performed By: ###Jose Sanchez, BMP3 ####The performing lab is in the report. Granulocytes/100 WBC (Bld) 66.5 % Normal 40.0-80.0 [facility] Comment on above: Performed By: #### Ap G3, BMP3 ####The performing lab is in the report. Hematocrit Auto Volume Fraction (Bld) 21.9 % Low 40.0-52.0 [facility] Comment on above: Performed By: #### Ap G3, BMP3 ####The performing lab is in the report. Hemoglobin mass conc (Bld) 7.3 g/dL Low 13.0-18.0 [facility] Comment on above: Performed By: #### Ap Sanchez, BMP3 ####The performing lab is in the report. Lymphocytes Auto #/vol (Bld) 0.6 10*3/uL Low 1.0-4.3 [facility] Comment on above: Performed By: ###Jose Sanchez, BMP3 ####The performing lab is in the report. Lymphocytes/100 WBC Auto (Bld) 16.2 % Low 20.0-40.0 [facility] Comment on above: Performed By: #### Ap G3, BMP3 ####The performing lab is in the report. MCH Auto Entitic mass (RBC) 28.1 pg Normal 26.0-34.0 [facility] Comment on above: Performed By: #### Ap G3, BMP3 ####The performing lab is in the report. MCHC Auto mass conc (RBC) 33.2 % Normal 32.0-36.0 [facility] Comment on above: Performed By: #### Ap G3, BMP3 ####The performing lab is in the report. MCV Auto Entitic volume (RBC) 84.7 fL Normal 80.0-98.0 [facility] Comment on above: Performed By: #### Ap G3, BMP3 ####The performing lab is in the report. Monocytes Auto #/vol (Bld) 0.4 10*3/uL Normal 0.0-0.8 [facility] Comment on above: Performed By: #### Ap G3, BMP3 ####The performing lab is in the report. Monocytes/100 WBC Auto (Bld) 11.1 % High 2.0-10.0 [facility] Comment on above: Performed By: #### Ap G3, BMP3 ####The performing lab is in the report. Platelet mean volume Auto Entitic volume (Bld) 8.9 fL Normal 7.4-10.4 [facility] Comment on above: Performed By: #### Ap G3, BMP3 ####The performing lab is in the report. Platelets Auto #/vol (Bld) 226 10*3/uL Normal 140-440 [facility] Comment on above: Performed By: #### Ap G3, BMP3 ####The performing lab is in the report. RBC Auto #/vol (Bld) 2.59 10*6/uL Low 4.40-5.90 [facility] Comment on above: Performed By: #### Ap G3, BMP3 ####The performing lab is in the report. WBC Auto #/vol (Bld) 3.8 10*3/uL Normal 3.6-10.7 [facility] Comment on above: Performed By: #### M G3, BMP3 ####The performing lab is in the report. Magnesiumon 10-28-2017 Magnesium mass conc 1.6 mg/dL Normal 1.6-2.3 [facility] Comment on above: Performed By: #### M G3, BMP3 ####The performing lab is in the report. Phosphoruson 10-28-2017 Phosphate mass conc 2.8 mg/dL Normal 2.5-4.5 [facility] Comment on above: Performed By: #### M G3, BMP3 ####The performing lab is in the report. Basic Metabolic Panelon 10-15 Calcium mass conc 9.0 mg/dL Normal 8.4-10.4 [facility] Comment on above: Performed By: #### M G3, BMP3 ####The performing lab is in the report. Anion gap 3 molar conc 4 Normal [facility] Comment on above: Performed By: #### M G3, BMP3 ####The performing lab is in the report. CO2 molar conc 30 mmol/L Normal 22-30 [facility] Comment on above: Performed By: #### M G3, BMP3 ####The performing lab is in the report. Creatinine mass conc 0.68 mg/dL Normal 0.52-1.25 [facility] Comment on above: Performed By: #### M G3, BMP3 ####The performing lab is in the report. GFR/1.73 sq M predicted among blacks MDRD vol rate/area (S/P/Bld) mL/min/{1.73_m2} Normal >60 [facility] Comment on above: Performed By: #### M G3, BMP3 ####The performing lab is in the report. GFR/1.73 sq M predicted among non-blacks MDRD vol rate/area (S/P/Bld) mL/min/{1.73_m2} Normal >60 [facility] Comment on above: Result Comment: Sour ce- MDRD equation with creatinine calibration to IDMS(NKDEP) eGFR not recommended for drug dose adjustment Performed By: #### M G3, BMP3 ####The performing lab is in the report. Glucose mass conc 121 mg/dL High 70-100 [facility] Comment on above: Performed By: #### M G3, BMP3 ####The performing lab is in the report. Urea nitrogen mass conc 17 mg/dL Normal 7-20 [facility] Comment on above: Performed By: #### M G3, BMP3 ####The performing lab is in the report. Chloride molar conc 102 mmol/L Normal 98-107 [facility] Comment on above: Performed By: #### M G3, BMP3 ####The performing lab is in the report. Potassium molar conc 3.8 mmol/L Normal 3.5-5.1 [facility] Comment on above: Performed By: #### M G3, BMP3 ####The performing lab is in the report. Sodium molar conc 136 mmol/L Low 137-145 [facility] Comment on above: Performed By: [...] 1 S Pip/Tazobactam(MARTITA) = 8 S Normal [facility] Comment on above: Order Comment: ORor Performed By: #### M G3, BMP3 ####The performing lab is in the report. Glucose,Bedsideon 10-27-2017 Glucose mass conc 122 mg/dL High 70-100 [facility] Comment on above: Result Comment: Test performed by glucose meter. Results may be 10%-15% lowerthan serum/plasma values. (CLIA ID [id number]) Performed By: #### M G3, BMP3 ####The performing lab is in the report. Glucose mass conc 119 mg/dL High 70-100 [facility] Comment on above: Result Comment: Test performed by glucose meter. Results may be 10%-15% lowerthan serum/plasma values. (CLIA ID [id number]) Performed By: #### M G3, BMP3 ####The performing lab is in the report. Glucose mass conc 149 mg/dL High 70-100 [facility] Comment on above: Result Comment: Test performed by glucose meter. Results may be 10%-15% lowerthan serum/plasma values. (CLIA ID [id number]) Performed By: #### M G3, BMP3 ####The performing lab is in the report. Glucose mass conc 171 mg/dL High 70-100 [facility] Comment on above: Result Comment: Test performed by glucose meter. Results may be 10%-15% lowerthan serum/plasma values. (CLIA ID [id number]) Performed By: #### M G3, BMP3 ####The performing lab is in the report. Hemogram w/ Autodiffon 10-27 Abs Baso Cnt 0.0 10*3/uL Normal 0.0-0.2 [facility] Comment on above: Performed By: #### M G3, BMP3 ####The performing lab is in the report. Abs Neutrophile Cnt 3.1 10*3/uL Normal 1.8-7.0 [facility] Comment on above: Performed By: #### M G3, BMP3 ####The performing lab is in the report. Basophils/100 WBC Auto (Bld) 0.7 % Normal 0.0-2.0 [facility] Comment on above: Performed By: #### M G3, BMP3 ####The performing lab is in the report. Eosinophils Auto #/vol (Bld) 0.3 10*3/uL Normal 0.0-0.5 [facility] Comment on above: Performed By: #### M G3, BMP3 ####The performing lab is in the report. Eosinophils/100 WBC Auto (Bld) 6.7 % High 1.0-6.0 [facility] Comment on above: Performed By: #### Ap G3, BMP3 ####The performing lab is in the report. Erythrocyte distribution width Auto Ratio (RBC) 16.3 % High 11.5-14.5 [facility] Comment on above: Performed By: #### Ap G3, BMP3 ####The performing lab is in the report. Granulocytes/100 WBC (Bld) 68.1 % Normal 40.0-80.0 [facility] Comment on above: Performed By: #### M G3, BMP3 ####The performing lab is in the report. Hematocrit Auto Volume Fraction (Bld) 23.0 % Low 40.0-52.0 [facility] Comment on above: Performed By: #### Ap G3, BMP3 ####The performing lab is in the report. Hemoglobin mass conc (Bld) 7.5 g/dL Low 13.0-18.0 [facility] Comment on above: Performed By: #### M G3, BMP3 ####The performing lab is in the report. Lymphocytes Auto #/vol (Bld) 0.7 10*3/uL Low 1.0-4.3 [facility] Comment on above: Performed By: #### M G3, BMP3 ####The performing lab is in the report. Lymphocytes/100 WBC Auto (Bld) 14.4 % Low 20.0-40.0 [facility] Comment on above: Performed By: #### Ap G3, BMP3 ####The performing lab is in the report. MCH Auto Entitic mass (RBC) 27.6 pg Normal 26.0-34.0 [facility] Comment on above: Performed By: #### M G3, BMP3 ####The performing lab is in the report. MCHC Auto mass conc (RBC) 32.6 % Normal 32.0-36.0 [facility] Comment on above: Performed By: #### Ap G3, BMP3 ####The performing lab is in the report. MCV Auto Entitic volume (RBC) 84.7 fL Normal 80.0-98.0 [facility] Comment on above: Performed By: #### Ap G3, BMP3 ####The performing lab is in the report. Monocytes Auto #/vol (Bld) 0.5 10*3/uL Normal 0.0-0.8 [facility] Comment on above: Performed By: #### Ap G3, BMP3 ####The performing lab is in the report. Monocytes/100 WBC Auto (Bld) 10.1 % High 2.0-10.0 [facility] Comment on above: Performed By: #### Ap G3, BMP3 ####The performing lab is in the report. Platelet mean volume Auto Entitic volume (Bld) 8.6 fL Normal 7.4-10.4 [facility] Comment on above: Performed By: #### Ap G3, BMP3 ####The performing lab is in the report. Platelets Auto #/vol (Bld) 211 10*3/uL Normal 140-440 [facility] Comment on above: Performed By: #### Ap G3, BMP3 ####The performing lab is in the report. RBC Auto #/vol (Bld) 2.72 10*6/uL Low 4.40-5.90 [facility] Comment on above: Performed By: #### Ap G3, BMP3 ####The performing lab is in the report. WBC Auto #/vol (Bld) 4.6 10*3/uL Normal 3.6-10.7 [facility] Comment on above: Performed By: #### Ap G3, BMP3 ####The performing lab is in the report. Magnesiumon 10-27-2017 Magnesium mass conc 1.6 mg/dL Normal 1.6-2.3 [facility] Comment on above: Performed By: #### Ap G3, BMP3 ####The performing lab is in the report. Phosphoruson 10-27-2017 Phosphate mass conc 2.8 mg/dL Normal 2.5-4.5 [facility] Comment on above: Performed By: #### Ap G3, BMP3 ####The performing lab is in the report. Basic Metabolic Panelon 10-15 Calcium mass conc 9.1 mg/dL Normal 8.4-10.4 [facility] Comment on above: Performed By: #### Ap G3, BMP3 ####The performing lab is in the report. Glucose mass conc 145 mg/dL High 70-100 [facility] Comment on above: Performed By: #### Ap G3, BMP3 ####The performing lab is in the report. Urea nitrogen mass conc 23 mg/dL High 7-20 [facility] Comment on above: Performed By: #### Ap G3, BMP3 ####The performing lab is in the report. Anion gap 3 molar conc 5 Normal [facility] Comment on above: Performed By: #### Ap G3, BMP3 ####The performing lab is in the report. CO2 molar conc 31 mmol/L High 22-30 [facility] Comment on above: Performed By: #### Ap G3, BMP3 ####The performing lab is in the report. Creatinine mass conc 0.75 mg/dL Normal 0.52-1.25 [facility] Comment on above: Performed By: #### Ap G3, BMP3 ####The performing lab is in the report. GFR/1.73 sq M predicted among blacks MDRD vol rate/area (S/P/Bld) mL/min/{1.73_m2} Normal >60 [facility] Comment on above: Performed By: #### Ap G3, BMP3 ####The performing lab is in the report. GFR/1.73 sq M predicted among non-blacks MDRD vol rate/area (S/P/Bld) mL/min/{1.73_m2} Normal >60 [facility] Comment on above: Result Comment: Sour ce- MDRD equation with creatinine calibration to IDMS(NKDEP) eGFR not recommended for drug dose adjustment Performed By: #### M G3, BMP3 ####The performing lab is in the report. Chloride molar conc 101 mmol/L Normal 98-107 [facility] Comment on above: Performed By: #### M G3, BMP3 ####The performing lab is in the report. Potassium molar conc 3.6 mmol/L Normal 3.5-5.1 [facility] Comment on above: Performed By: #### M G3, BMP3 ####The performing lab is in the report. Sodium molar conc 137 mmol/L Normal 137-145 [facility] Comment on above: Performed By: #### M G3, BMP3 ####The performing lab is in the report. Glucose,Bedsideon 10-26-2017 Glucose mass conc 135 mg/dL High 70-100 [facility] Comment on above: Result Comment: Test performed by glucose meter. Results may be 10%-15% lowerthan serum/plasma values. (CLIA ID [id number]) Performed By: #### M G3, BMP3 ####The performing lab is in the report. Glucose mass conc 166 mg/dL High 70-100 [facility] Comment on above: Result Comment: Test performed by glucose meter. Results may be 10%-15% lowerthan serum/plasma values. (CLIA ID [id number]) Performed By: #### M G3, BMP3 ####The performing lab is in the report. Glucose mass conc 105 mg/dL High 70-100 [facility] Comment on above: Result Comment: Test performed by glucose meter. Results may be 10%-15% lowerthan serum/plasma values. (CLIA ID [id number]) Performed By: #### M G3, BMP3 ####The performing lab is in the report. Hemogram w/ Autodiffon 10-26 Abs Baso Cnt 0.0 10*3/uL Normal 0.0-0.2 [facility] Comment on above: Performed By: #### Ap G3, BMP3 ####The performing lab is in the report. Abs Neutrophile Cnt 4.5 10*3/uL Normal 1.8-7.0 [facility] Comment on above: Performed By: #### Ap G3, BMP3 ####The performing lab is in the report. Basophils/100 WBC Auto (Bld) 0.5 % Normal 0.0-2.0 [facility] Comment on above: Performed By: #### Ap G3, BMP3 ####The performing lab is in the report. Eosinophils Auto #/vol (Bld) 0.3 10*3/uL Normal 0.0-0.5 [facility] Comment on above: Performed By: #### Ap G3, BMP3 ####The performing lab is in the report. Eosinophils/100 WBC Auto (Bld) 5.3 % Normal 1.0-6.0 [facility] Comment on above: Performed By: #### Ap G3, BMP3 ####The performing lab is in the report. Erythrocyte distribution width Auto Ratio (RBC) 16.5 % High 11.5-14.5 [facility] Comment on above: Performed By: #### Ap G3, BMP3 ####The performing lab is in the report. Granulocytes/100 WBC (Bld) 71.4 % Normal 40.0-80.0 [facility] Comment on above: Performed By: #### Ap G3, BMP3 ####The performing lab is in the report. Hematocrit Auto Volume Fraction (Bld) 23.1 % Low 40.0-52.0 [facility] Comment on above: Performed By: #### Ap G3, BMP3 ####The performing lab is in the report. Hemoglobin mass conc (Bld) 7.5 g/dL Low 13.0-18.0 [facility] Comment on above: Performed By: #### Ap G3, BMP3 ####The performing lab is in the report. Lymphocytes Auto #/vol (Bld) 0.7 10*3/uL Low 1.0-4.3 [facility] Comment on above: Performed By: #### Ap G3, BMP3 ####The performing lab is in the report. Lymphocytes/100 WBC Auto (Bld) 11.3 % Low 20.0-40.0 [facility] Comment on above: Performed By: #### Ap G3, BMP3 ####The performing lab is in the report. MCH Auto Entitic mass (RBC) 27.9 pg Normal 26.0-34.0 [facility] Comment on above: Performed By: #### Ap G3, BMP3 ####The performing lab is in the report. MCHC Auto mass conc (RBC) 32.4 % Normal 32.0-36.0 [facility] Comment on above: Performed By: #### Ap G3, BMP3 ####The performing lab is in the report. MCV Auto Entitic volume (RBC) 86.1 fL Normal 80.0-98.0 [facility] Comment on above: Performed By: #### Ap G3, BMP3 ####The performing lab is in the report. Monocytes Auto #/vol (Bld) 0.7 10*3/uL Normal 0.0-0.8 [facility] Comment on above: Performed By: #### Ap G3, BMP3 ####The performing lab is in the report. Monocytes/100 WBC Auto (Bld) 11.5 % High 2.0-10.0 [facility] Comment on above: Performed By: #### Ap G3, BMP3 ####The performing lab is in the report. Platelet mean volume Auto Entitic volume (Bld) 8.7 fL Normal 7.4-10.4 [facility] Comment on above: Performed By: #### Ap G3, BMP3 ####The performing lab is in the report. Platelets Auto #/vol (Bld) 218 10*3/uL Normal 140-440 [facility] Comment on above: Performed By: #### Ap G3, BMP3 ####The performing lab is in the report. RBC Auto #/vol (Bld) 2.68 10*6/uL Low 4.40-5.90 [facility] Comment on above: Performed By: #### Ap G3, BMP3 ####The performing lab is in the report. WBC Auto #/vol (Bld) 6.2 10*3/uL Normal 3.6-10.7 [facility] Comment on above: Performed By: #### Ap G3, BMP3 ####The performing lab is in the report. Magnesiumon 10-26-2017 Magnesium mass conc 1.7 mg/dL Normal 1.6-2.3 [facility] Comment on above: Performed By: #### Ap G3, BMP3 ####The performing lab is in the report. Phosphoruson 10-26-2017 Phosphate mass conc 2.6 mg/dL Normal 2.5-4.5 [facility] Comment on above: Performed By: #### Ap G3, BMP3 ####The performing lab is in the report. Basic Metabolic Panelon 10-15 Anion gap 3 molar conc 9 Normal [facility] Comment on above: Performed By: #### Ap G3, BMP3 ####The performing lab is in the report. Calcium mass conc 9.4 mg/dL Normal 8.4-10.4 [facility] Comment on above: Performed By: #### Ap G3, BMP3 ####The performing lab is in the report. CO2 molar conc 29 mmol/L Normal 22-30 [facility] Comment on above: Performed By: #### Ap G3, BMP3 ####The performing lab is in the report. Glucose mass conc 148 mg/dL High 70-100 [facility] Comment on above: Performed By: #### Ap G3, BMP3 ####The performing lab is in the report. Urea nitrogen mass conc 21 mg/dL High 7-20 [facility] Comment on above: Performed By: #### Ap G3, BMP3 ####The performing lab is in the report. Creatinine mass conc 0.83 mg/dL Normal 0.52-1.25 [facility] Comment on above: Performed By: #### Ap G3, BMP3 ####The performing lab is in the report. GFR/1.73 sq M predicted among blacks MDRD vol rate/area (S/P/Bld) mL/min/{1.73_m2} Normal >60 [facility] Comment on above: Performed By: #### M G3, BMP3 ####The performing lab is in the report. GFR/1.73 sq M predicted among non-blacks MDRD vol rate/area (S/P/Bld) mL/min/{1.73_m2} Normal >60 [facility] Comment on above: Result Comment: Sour ce- MDRD equation with creatinine calibration to IDMS(NKDEP) eGFR not recommended for drug dose adjustment Performed By: #### M G3, BMP3 ####The performing lab is in the report. Potassium molar conc 4.1 mmol/L Normal 3.5-5.1 [facility] Comment on above: Performed By: #### M G3, BMP3 ####The performing lab is in the report. Chloride molar conc 101 mmol/L Normal 98-107 [facility] Comment on above: Performed By: #### M G3, BMP3 ####The performing lab is in the report. Sodium molar conc 138 mmol/L Normal 137-145 [facility] Comment on above: Performed By: #### M G3, BMP3 ####The performing lab is in the report. CR Chest Portableon 10-26-19 CR Chest Portable Patient Name: JAMES REYES Diagnostic Radiology Exam Date/Time 10/25/2017 10:26:30 EDT Exam CR Chest Portable Ordering Physician JACQUES WADE Accession Number [id number] CPT4 Codes 93802 () Reason For Exam line repositioned Report [...] Transcribed Date and Time: 10/25/2017 12:47 Normal [facility] Glucose,Bedsideon 10-25-2017 Glucose mass conc 149 mg/dL High 70-100 [facility] Comment on above: Result Comment: Test performed by glucose meter. Results may be 10%-15% lowerthan serum/plasma values. (CLIA ID [id number]) Performed By: #### M G3, BMP3 ####The performing lab is in the report. Glucose mass conc 162 mg/dL High 70-100 [facility] Comment on above: Result Comment: Test performed by glucose meter. Results may be 10%-15% lowerthan serum/plasma values. (CLIA ID [id number]) Performed By: #### M G3, BMP3 ####The performing lab is in the report. Glucose mass conc 168 mg/dL High 70-100 [facility] Comment on above: Result Comment: Test performed by glucose meter. Results may be 10%-15% lowerthan serum/plasma values. (CLIA ID [id number]) Performed By: #### M G3, BMP3 ####The performing lab is in the report. Glucose mass conc 164 mg/dL High 70-100 [facility] Comment on above: Result Comment: Test performed by glucose meter. Results may be 10%-15% lowerthan serum/plasma values. (CLIA ID [id number]) Performed By: #### M G3, BMP3 ####The performing lab is in the report. Hemogram w/ Autodiffon 10-25 Abs Baso Cnt 0.0 10*3/uL Normal 0.0-0.2 [facility] Comment on above: Performed By: #### M G3, BMP3 ####The performing lab is in the report. Abs Neutrophile Cnt 7.5 10*3/uL High 1.8-7.0 [facility] Comment on above: Performed By: #### M G3, BMP3 ####The performing lab is in the report. Basophils/100 WBC Auto (Bld) 0.5 % Normal 0.0-2.0 [facility] Comment on above: Performed By: #### Ap G3, BMP3 ####The performing lab is in the report. Eosinophils Auto #/vol (Bld) 0.1 10*3/uL Normal 0.0-0.5 [facility] Comment on above: Performed By: #### Ap G3, BMP3 ####The performing lab is in the report. Eosinophils/100 WBC Auto (Bld) 0.8 % Low 1.0-6.0 [facility] Comment on above: Performed By: #### Ap G3, BMP3 ####The performing lab is in the report. Erythrocyte distribution width Auto Ratio (RBC) 16.2 % High 11.5-14.5 [facility] Comment on above: Performed By: #### Ap Sanchez, BMP3 ####The performing lab is in the report. Granulocytes/100 WBC (Bld) 82.8 % High 40.0-80.0 [facility] Comment on above: Performed By: #### Ap G3, BMP3 ####The performing lab is in the report. Hematocrit Auto Volume Fraction (Bld) 26.7 % Low 40.0-52.0 [facility] Comment on above: Performed By: #### Ap G3, BMP3 ####The performing lab is in the report. Hemoglobin mass conc (Bld) 8.8 g/dL Low 13.0-18.0 [facility] Comment on above: Performed By: #### Ap G3, BMP3 ####The performing lab is in the report. Lymphocytes Auto #/vol (Bld) 0.5 10*3/uL Low 1.0-4.3 [facility] Comment on above: Performed By: #### Ap G3, BMP3 ####The performing lab is in the report. Lymphocytes/100 WBC Auto (Bld) 5.8 % Low 20.0-40.0 [facility] Comment on above: Performed By: #### Ap G3, BMP3 ####The performing lab is in the report. MCH Auto Entitic mass (RBC) 27.8 pg Normal 26.0-34.0 [facility] Comment on above: Performed By: #### Ap G3, BMP3 ####The performing lab is in the report. MCHC Auto mass conc (RBC) 33.1 % Normal 32.0-36.0 [facility] Comment on above: Performed By: #### Ap G3, BMP3 ####The performing lab is in the report. MCV Auto Entitic volume (RBC) 84.1 fL Normal 80.0-98.0 [facility] Comment on above: Performed By: #### Ap G3, BMP3 ####The performing lab is in the report. Monocytes Auto #/vol (Bld) 0.9 10*3/uL High 0.0-0.8 [facility] Comment on above: Performed By: #### Ap G3, BMP3 ####The performing lab is in the report. Monocytes/100 WBC Auto (Bld) 10.1 % High 2.0-10.0 [facility] Comment on above: Performed By: #### Ap G3, BMP3 ####The performing lab is in the report. Platelet mean volume Auto Entitic volume (Bld) 8.4 fL Normal 7.4-10.4 [facility] Comment on above: Performed By: #### Ap G3, BMP3 ####The performing lab is in the report. Platelets Auto #/vol (Bld) 250 10*3/uL Normal 140-440 [facility] Comment on above: Performed By: #### Ap G3, BMP3 ####The performing lab is in the report. RBC Auto #/vol (Bld) 3.17 10*6/uL Low 4.40-5.90 [facility] Comment on above: Performed By: #### Ap G3, BMP3 ####The performing lab is in the report. WBC Auto #/vol (Bld) 9.0 10*3/uL Normal 3.6-10.7 [facility] Comment on above: Performed By: #### Ap G3, BMP3 ####The performing lab is in the report. Magnesiumon 10-25-2017 Magnesium mass conc 1.7 mg/dL Normal 1.6-2.3 [facility] Comment on above: Performed By: #### M G3, BMP3 ####The performing lab is in the report. Phosphoruson 10-25-2017 Phosphate mass conc 3.1 mg/dL Normal 2.5-4.5 [facility] Comment on above: Performed By: #### M G3, BMP3 ####The performing lab is in the report. Procalcitoninon 10-25-2017 Protein mass conc g/dL Normal <0.10 [facility] Comment on above: Performed By: #### M G3, BMP3 ####The performing lab is in the report. Arterial Blood Gaseson 10-24 HCO3 molar conc (Bld) 27.9 mmol/L High 21.0-25.0 [facility] Comment on above: Performed By: #### M G3, BMP3 ####The performing lab is in the report. Hemoglobin mass conc (Bld) 9.3 g/dL Normal ScreenOnly [facility] Comment on above: Performed By: #### M G3, BMP3 ####The performing lab is in the report. Oxygen ppres (BldA) 103.5 mm[Hg] High 80.0-100.0 [facility] Comment on above: Performed By: #### M G3, BMP3 ####The performing lab is in the report. Oxygen saturation in Blood 97.1 % Normal 95.0-100.0 [facility] Comment on above: Performed By: #### M G3, BMP3 ####The performing lab is in the report. pCO2 42.1 mm[Hg] Normal 35.0-45.0 [facility] Comment on above: Performed By: #### M G3, BMP3 ####The performing lab is in the report. pH (Bld) 7.439 Normal 7.350-7.450 [facility] Comment on above: Performed By: #### M G3, BMP3 ####The performing lab is in the report. Std Base Excess 3.4 mmol/L High -3.0-3.0 [facility] Comment on above: Performed By: #### M G3, BMP3 ####The performing lab is in the report. TCO2 29.2 mmol/L High 23.0-27.0 [facility] Comment on above: Performed By: #### M G3, BMP3 ####The performing lab is in the report. FIO2 4 L Normal [facility] Comment on above: Performed By: #### M G3, BMP3 ####The performing lab is in the report. Basic Metabolic Panelon 10-15 Anion gap 3 molar conc 7 Normal [facility] Comment on above: Performed By: #### M G3, BMP3 ####The performing lab is in the report. Calcium mass conc 9.2 mg/dL Normal 8.4-10.4 [facility] Comment on above: Performed By: #### M G3, BMP3 ####The performing lab is in the report. Chloride molar conc 102 mmol/L Normal 98-107 [facility] Comment on above: Performed By: #### M G3, BMP3 ####The performing lab is in the report. CO2 molar conc 29 mmol/L Normal 22-30 [facility] Comment on above: Performed By: #### M G3, BMP3 ####The performing lab is in the report. Creatinine mass conc 0.89 mg/dL Normal 0.52-1.25 [facility] Comment on above: Performed By: #### M G3, BMP3 ####The performing lab is in the report. GFR/1.73 sq M predicted among blacks MDRD vol rate/area (S/P/Bld) mL/min/{1.73_m2} Normal >60 [facility] Comment on above: Performed By: #### M G3, BMP3 ####The performing lab is in the report. GFR/1.73 sq M predicted among non-blacks MDRD vol rate/area (S/P/Bld) mL/min/{1.73_m2} Normal >60 [facility] Comment on above: Result Comment: Sour ce- MDRD equation with creatinine calibration to IDMS(NKDEP) eGFR not recommended for drug dose adjustment Performed By: #### M G3, BMP3 ####The performing lab is in the report. Glucose mass conc 110 mg/dL High 70-100 [facility] Comment on above: Performed By: #### M G3, BMP3 ####The performing lab is in the report. Potassium molar conc 3.8 mmol/L Normal 3.5-5.1 [facility] Comment on above: Performed By: #### M G3, BMP3 ####The performing lab is in the report. Sodium molar conc 137 mmol/L Normal 137-145 [facility] Comment on above: Result Comment: Down time Data Recovery: Caution when interpreting results with collectiondate & time. Performed By: #### M G3, BMP3 ####The performing lab is in the report. Urea nitrogen mass conc 26 mg/dL High 7-20 [facility] Comment on above: Performed By: #### M G3, BMP3 ####The performing lab is in the report. CR Chest Portableon 10-25-19 CR Chest Portable Patient Name: JAMES REYES Diagnostic Radiology Exam Date/Time 10/24/2017 18:18:27 EDT Exam CR Chest Portable Ordering Physician ERIC DENNEY D.O. Accession Number [id number] CPT4 Codes 05976 () Reason For Exam acute hypoxic respiratory [...] Transcribed Date and Time: 10/24/2017 7:34 Normal [facility] Glucose,Bedsideon 10-24-2017 Glucose mass conc 160 mg/dL High 70-100 [facility] Comment on above: Result Comment: Test performed by glucose meter. Results may be 10%-15% lowerthan serum/plasma values. (CLIA ID [id number]) Performed By: #### M G3, BMP3 ####The performing lab is in the report. Glucose mass conc 163 mg/dL High 70-100 [facility] Comment on above: Result Comment: Test performed by glucose meter. Results may be 10%-15% lowerthan serum/plasma values. (CLIA ID [id number]) Performed By: #### M G3, BMP3 ####The performing lab is in the report. Glucose mass conc 127 mg/dL High 70-[facility] Comment on above: Result Comment: Test performed by glucose meter. Results may be 10%-15% lowerthan serum/plasma values. (CLIA ID [id number]) Performed By: #### M G3, BMP3 ####The performing lab is in the report. Hemogram w/ Autodiffon 10-24 Abs Baso Cnt 0.0 10*3/uL Normal 0.0-0.2 [facility] Comment on above: Performed By: #### M G3, BMP3 ####The performing lab is in the report. Abs Neutrophile Cnt 3.5 10*3/uL Normal 1.8-7.0 [facility] Comment on above: Performed By: #### M G3, BMP3 ####The performing lab is in the report. Basophils/100 WBC Auto (Bld) 0.9 % Normal 0.0-2.0 [facility] Comment on above: Performed By: #### M G3, BMP3 ####The performing lab is in the report. Eosinophils Auto #/vol (Bld) 0.1 10*3/uL Normal 0.0-0.5 [facility] Comment on above: Performed By: #### M G3, BMP3 ####The performing lab is in the report. Eosinophils/100 WBC Auto (Bld) 1.8 % Normal 1.0-6.0 [facility] Comment on above: Performed By: #### Ap G3, BMP3 ####The performing lab is in the report. Erythrocyte distribution width Auto Ratio (RBC) 15.9 % High 11.5-14.5 [facility] Comment on above: Performed By: #### M G3, BMP3 ####The performing lab is in the report. Granulocytes/100 WBC (Bld) 67.5 % Normal 40.0-80.0 [facility] Comment on above: Performed By: #### Ap G3, BMP3 ####The performing lab is in the report. Hematocrit Auto Volume Fraction (Bld) 29.4 % Low 40.0-52.0 [facility] Comment on above: Performed By: #### Ap G3, BMP3 ####The performing lab is in the report. Hemoglobin mass conc (Bld) 9.6 g/dL Low 13.0-18.0 [facility] Comment on above: Performed By: #### Ap G3, BMP3 ####The performing lab is in the report. Lymphocytes Auto #/vol (Bld) 0.9 10*3/uL Low 1.0-4.3 [facility] Comment on above: Performed By: #### Ap G3, BMP3 ####The performing lab is in the report. Lymphocytes/100 WBC Auto (Bld) 18.3 % Low 20.0-40.0 [facility] Comment on above: Performed By: #### Ap G3, BMP3 ####The performing lab is in the report. MCH Auto Entitic mass (RBC) 27.5 pg Normal 26.0-34.0 [facility] Comment on above: Performed By: #### Ap G3, BMP3 ####The performing lab is in the report. MCHC Auto mass conc (RBC) 32.8 % Normal 32.0-36.0 [facility] Comment on above: Performed By: #### M G3, BMP3 ####The performing lab is in the report. MCV Auto Entitic volume (RBC) 84.0 fL Normal 80.0-98.0 [facility] Comment on above: Performed By: #### Ap G3, BMP3 ####The performing lab is in the report. Monocytes Auto #/vol (Bld) 0.6 10*3/uL Normal 0.0-0.8 [facility] Comment on above: Performed By: #### Ap G3, BMP3 ####The performing lab is in the report. Monocytes/100 WBC Auto (Bld) 11.5 % High 2.0-10.0 [facility] Comment on above: Performed By: #### Ap G3, BMP3 ####The performing lab is in the report. Platelet mean volume Auto Entitic volume (Bld) 8.8 fL Normal 7.4-10.4 [facility] Comment on above: Performed By: #### Ap G3, BMP3 ####The performing lab is in the report. Platelets Auto #/vol (Bld) 286 10*3/uL Normal 140-440 [facility] Comment on above: Performed By: ###Jose Sanchez, BMP3 ####The performing lab is in the report. RBC Auto #/vol (Bld) 3.49 10*6/uL Low 4.40-5.90 [facility] Comment on above: Performed By: #### Ap G3, BMP3 ####The performing lab is in the report. WBC Auto #/vol (Bld) 5.2 10*3/uL Normal 3.6-10.7 [facility] Comment on above: Performed By: ###Jose De Souza G3, BMP3 ####The performing lab is in the report. Procalcitoninon 10-24-2017 Interpretation See Below Normal [facility] Comment on above: Result Comment: PCT <0.50 = Low risk of severe sepsis and/or septic shock.PCT >2.00 = High risk of severe sepsis and/or septic shock. Performed By: #### Ap G3, BMP3 ####The performing lab is in the report. Surgical Pathologyon 018 Surgical Pathology [id number] [facility] PATHOLOGY AND LABORATORY MEDICINE [address] [place] [address] [phone] FINAL SURGICAL PATHOLOGY REPORT NAME: JAMES REYES .O.B.: 1955 62 Y [facility] NO[facility] [id number]: [id number] PROCEDURE 10/24/2017 DATE:SURGEON: MELQUIADES COLON M.D. RECEIVED 10/24/2017 DATE:ATTENDING: STACEY CLEMONS M.D. REPORT DATE: 10/26/2017 COPIES TO: DIAGNOSIS:STERNA L WOUND, DEBRIDEMENT - SKIN WITH UNDERLYING FAT NECROSIS ANDGRANULATION TISSUE.ABDIASW/ARSENIO S JAMES BALDERAS M.D. CLINICAL INFORMATION: Not providedSPECIMEN: WOUND GROSS DESCRIPTION:Sternal woundReceived in formalin are multiple, fragmented, pink, macerated tissueaggregating to 8 x 6 x 2 cm. There are portions of skin identifiedwhich are pink-garcia and ulcerated. The underlying tissue is somewhathemorrhagic. Random sections are submitted in a single cassette.(bits ss, 1) CAROLINE/JAFDisclaimer: The following statement applies to allimmunohistochemistry , in situ hybridization, molecular studies, andimmunofluorescence testing.The use of one or more reagents in the above tests is regulated as ananalyte specific reagent (ASR). These tests were developed and theirperformance characteristics determined by the clinical laboratories [facility]. They have not been cleared by the [...] false negativity on decalcified specimens.Professional Performing Location: [place] [address]. DEPARTMENT OF PATHOLOGY AND LABORATORY MEDICINE [place], [place] [address] Normal [facility] Basic Metabolic Panelon 07-0 Calcium mass conc 9.3 mg/dL Normal 8.4-10.4 [facility] Comment on above: Performed By: #### Ap G3, BMP3 ####The performing lab is in the report. Glucose mass conc 90 mg/dL Normal 70-100 [facility] Comment on above: Performed By: #### M G3, BMP3 ####The performing lab is in the report. Urea nitrogen mass conc 24 mg/dL High 7-20 [facility] Comment on above: Performed By: #### M G3, BMP3 ####The performing lab is in the report. Anion gap 3 molar conc 6 Normal [facility] Comment on above: Performed By: #### M G3, BMP3 ####The performing lab is in the report. CO2 molar conc 28 mmol/L Normal 22-30 [facility] Comment on above: Performed By: #### M G3, BMP3 ####The performing lab is in the report. Creatinine mass conc 0.86 mg/dL Normal 0.52-1.25 [facility] Comment on above: Performed By: #### Ap G3, BMP3 ####The performing lab is in the report. GFR/1.73 sq M predicted among blacks MDRD vol rate/area (S/P/Bld) mL/min/{1.73_m2} Normal >60 [facility] Comment on above: Performed By: #### M G3, BMP3 ####The performing lab is in the report. GFR/1.73 sq M predicted among non-blacks MDRD vol rate/area (S/P/Bld) mL/min/{1.73_m2} Normal >60 [facility] Comment on above: Result Comment: Sour ce- MDRD equation with creatinine calibration to IDMS(NKDEP) eGFR not recommended for drug dose adjustment Performed By: #### Ap G3, BMP3 ####The performing lab is in the report. Potassium molar conc 3.8 mmol/L Normal 3.5-5.1 [facility] Comment on above: Performed By: #### Ap G3, BMP3 ####The performing lab is in the report. Chloride molar conc 103 mmol/L Normal 98-107 [facility] Comment on above: Performed By: #### Ap G3, BMP3 ####The performing lab is in the report. Sodium molar conc 138 mmol/L Normal 137-145 [facility] Comment on above: Performed By: #### Ap G3, BMP3 ####The performing lab is in the report. Glucose,Bedsideon 10-23-2017 Glucose mass conc 166 mg/dL High 70-100 [facility] Comment on above: Result Comment: Test performed by glucose meter. Results may be 10%-15% lowerthan serum/plasma values. (CLIA ID [id number]) Performed By: #### Ap G3, BMP3 ####The performing lab is in the report. Glucose mass conc 123 mg/dL High 70-100 [facility] Comment on above: Result Comment: Test performed by glucose meter. Results may be 10%-15% lowerthan serum/plasma values. (CLIA ID [id number]) Performed By: #### Ap G3, BMP3 ####The performing lab is in the report. Glucose mass conc 141 mg/dL High 70-100 [facility] Comment on above: Result Comment: Test performed by glucose meter. Results may be 10%-15% lowerthan serum/plasma values. (CLIA ID [id number]) Performed By: #### M G3, BMP3 ####The performing lab is in the report. Glucose mass conc 107 mg/dL High 70-100 [facility] Comment on above: Result Comment: Test performed by glucose meter. Results may be 10%-15% lowerthan serum/plasma values. (CLIA ID [id number]) Performed By: #### Ap G3, BMP3 ####The performing lab is in the report. Hemogram w/ Autodiffon 10-23 Abs Baso Cnt 0.0 10*3/uL Normal 0.0-0.2 [facility] Comment on above: Performed By: #### Ap G3, BMP3 ####The performing lab is in the report. Abs Neutrophile Cnt 3.3 10*3/uL Normal 1.8-7.0 [facility] Comment on above: Performed By: #### Ap G3, BMP3 ####The performing lab is in the report. Basophils/100 WBC Auto (Bld) 0.7 % Normal 0.0-2.0 [facility] Comment on above: Performed By: #### Ap G3, BMP3 ####The performing lab is in the report. Eosinophils Auto #/vol (Bld) 0.1 10*3/uL Normal 0.0-0.5 [facility] Comment on above: Performed By: #### M G3, BMP3 ####The performing lab is in the report. Eosinophils/100 WBC Auto (Bld) 2.1 % Normal 1.0-6.0 [facility] Comment on above: Performed By: #### Ap G3, BMP3 ####The performing lab is in the report. Erythrocyte distribution width Auto Ratio (RBC) 15.9 % High 11.5-14.5 [facility] Comment on above: Performed By: #### Ap G3, BMP3 ####The performing lab is in the report. Granulocytes/100 WBC (Bld) 67.4 % Normal 40.0-80.0 [facility] Comment on above: Performed By: #### M G3, BMP3 ####The performing lab is in the report. Hematocrit Auto Volume Fraction (Bld) 29.3 % Low 40.0-52.0 [facility] Comment on above: Performed By: #### M G3, BMP3 ####The performing lab is in the report. Hemoglobin mass conc (Bld) 9.6 g/dL Low 13.0-18.0 [facility] Comment on above: Performed By: #### M G3, BMP3 ####The performing lab is in the report. Lymphocytes Auto #/vol (Bld) 0.9 10*3/uL Low 1.0-4.3 [facility] Comment on above: Performed By: #### M G3, BMP3 ####The performing lab is in the report. Lymphocytes/100 WBC Auto (Bld) 17.6 % Low 20.0-40.0 [facility] Comment on above: Performed By: #### Ap G3, BMP3 ####The performing lab is in the report. MCH Auto Entitic mass (RBC) 27.5 pg Normal 26.0-34.0 [facility] Comment on above: Performed By: #### M G3, BMP3 ####The performing lab is in the report. MCHC Auto mass conc (RBC) 32.9 % Normal 32.0-36.0 [facility] Comment on above: Performed By: #### Ap G3, BMP3 ####The performing lab is in the report. MCV Auto Entitic volume (RBC) 83.8 fL Normal 80.0-98.0 [facility] Comment on above: Performed By: #### M G3, BMP3 ####The performing lab is in the report. Monocytes Auto #/vol (Bld) 0.6 10*3/uL Normal 0.0-0.8 [facility] Comment on above: Performed By: #### M G3, BMP3 ####The performing lab is in the report. Monocytes/100 WBC Auto (Bld) 12.2 % High 2.0-10.0 [facility] Comment on above: Performed By: #### Ap G3, BMP3 ####The performing lab is in the report. Platelet mean volume Auto Entitic volume (Bld) 8.5 fL Normal 7.4-10.4 [facility] Comment on above: Performed By: #### Ap G3, BMP3 ####The performing lab is in the report. Platelets Auto #/vol (Bld) 266 10*3/uL Normal 140-440 [facility] Comment on above: Performed By: #### Ap G3, BMP3 ####The performing lab is in the report. RBC Auto #/vol (Bld) 3.49 10*6/uL Low 4.40-5.90 [facility] Comment on above: Performed By: #### Ap G3, BMP3 ####The performing lab is in the report. WBC Auto #/vol (Bld) 4.9 10*3/uL Normal 3.6-10.7 [facility] Comment on above: Performed By: #### Ap G3, BMP3 ####The performing lab is in the report. Basic Metabolic Panelon 07-0 Anion gap 3 molar conc 5 Normal [facility] Comment on above: Performed By: #### Ap G3, BMP3 ####The performing lab is in the report. Calcium mass conc 9.2 mg/dL Normal 8.4-10.4 [facility] Comment on above: Performed By: #### Ap G3, BMP3 ####The performing lab is in the report. CO2 molar conc 30 mmol/L Normal 22-30 [facility] Comment on above: Performed By: #### Ap G3, BMP3 ####The performing lab is in the report. Glucose mass conc 72 mg/dL Normal 70-100 [facility] Comment on above: Performed By: #### Ap G3, BMP3 ####The performing lab is in the report. Urea nitrogen mass conc 21 mg/dL High 7-20 [facility] Comment on above: Performed By: #### Ap G3, BMP3 ####The performing lab is in the report. Creatinine mass conc 0.86 mg/dL Normal 0.52-1.25 [facility] Comment on above: Performed By: #### M G3, BMP3 ####The performing lab is in the report. GFR/1.73 sq M predicted among blacks MDRD vol rate/area (S/P/Bld) mL/min/{1.73_m2} Normal >60 [facility] Comment on above: Performed By: #### M G3, BMP3 ####The performing lab is in the report. GFR/1.73 sq M predicted among non-blacks MDRD vol rate/area (S/P/Bld) mL/min/{1.73_m2} Normal >60 [facility] Comment on above: Result Comment: Sour ce- MDRD equation with creatinine calibration to IDMS(NKDEP) eGFR not recommended for drug dose adjustment Performed By: #### M G3, BMP3 ####The performing lab is in the report. Potassium molar conc 3.4 mmol/L Low 3.5-5.1 [facility] Comment on above: Performed By: #### M G3, BMP3 ####The performing lab is in the report. Sodium molar conc 137 mmol/L Normal 137-145 [facility] Comment on above: Performed By: #### M G3, BMP3 ####The performing lab is in the report. Chloride molar conc 101 mmol/L Normal 98-107 [facility] Comment on above: Performed By: #### M G3, BMP3 ####The performing lab is in the report. CULTURE ANAEROBEon 8 CULTURE ANAEROBE CULTURE ANAEROBE --> Status: F No growth of anaerobes at 5 days. Normal [facility] Comment on above: Order Comment: or co llected Performed By: #### H EMDF, APTT, HA1C2 ####The performing lab is in the report. Glucose,Bedsideon 10-22-2017 Glucose mass conc 112 mg/dL High 70-100 [facility] Comment on above: Result Comment: Test performed by glucose meter. Results may be 10%-15% lowerthan serum/plasma values. (CLIA ID [id number]) Performed By: #### Ap G3, BMP3 ####The performing lab is in the report. Glucose mass conc 116 mg/dL High 70-100 [facility] Comment on above: Result Comment: Test performed by glucose meter. Results may be 10%-15% lowerthan serum/plasma values. (CLIA ID [id number]) Performed By: #### M G3, BMP3 ####The performing lab is in the report. Glucose mass conc 159 mg/dL High 70-100 [facility] Comment on above: Result Comment: Test performed by glucose meter. Results may be 10%-15% lowerthan serum/plasma values. (CLIA ID [id number]) Performed By: #### Ap G3, BMP3 ####The performing lab is in the report. Glucose mass conc 101 mg/dL High 70-100 [facility] Comment on above: Result Comment: Test performed by glucose meter. Results may be 10%-15% lowerthan serum/plasma values. (CLIA ID [id number]) Performed By: #### Ap G3, BMP3 ####The performing lab is in the report. Hemogram w/ Autodiffon 10-22 Abs Baso Cnt 0.0 10*3/uL Normal 0.0-0.2 [facility] Comment on above: Performed By: #### Ap G3, BMP3 ####The performing lab is in the report. Abs Neutrophile Cnt 4.0 10*3/uL Normal 1.8-7.0 [facility] Comment on above: Performed By: #### Ap G3, BMP3 ####The performing lab is in the report. Basophils/100 WBC Auto (Bld) 0.7 % Normal 0.0-2.0 [facility] Comment on above: Performed By: #### Ap G3, BMP3 ####The performing lab is in the report. Eosinophils Auto #/vol (Bld) 0.2 10*3/uL Normal 0.0-0.5 [facility] Comment on above: Performed By: #### Ap G3, BMP3 ####The performing lab is in the report. Eosinophils/100 WBC Auto (Bld) 2.9 % Normal 1.0-6.0 [facility] Comment on above: Performed By: #### Ap G3, BMP3 ####The performing lab is in the report. Erythrocyte distribution width Auto Ratio (RBC) 16.0 % High 11.5-14.5 [facility] Comment on above: Performed By: #### Ap G3, BMP3 ####The performing lab is in the report. Granulocytes/100 WBC (Bld) 69.4 % Normal 40.0-80.0 [facility] Comment on above: Performed By: #### Ap G3, BMP3 ####The performing lab is in the report. Hematocrit Auto Volume Fraction (Bld) 29.9 % Low 40.0-52.0 [facility] Comment on above: Performed By: #### Ap G3, BMP3 ####The performing lab is in the report. Hemoglobin mass conc (Bld) 10.0 g/dL Low 13.0-18.0 [facility] Comment on above: Performed By: #### Ap G3, BMP3 ####The performing lab is in the report. Lymphocytes Auto #/vol (Bld) 0.9 10*3/uL Low 1.0-4.3 [facility] Comment on above: Performed By: #### Ap G3, BMP3 ####The performing lab is in the report. Lymphocytes/100 WBC Auto (Bld) 16.3 % Low 20.0-40.0 [facility] Comment on above: Performed By: #### Ap G3, BMP3 ####The performing lab is in the report. MCH Auto Entitic mass (RBC) 28.1 pg Normal 26.0-34.0 [facility] Comment on above: Performed By: #### Ap G3, BMP3 ####The performing lab is in the report. MCHC Auto mass conc (RBC) 33.4 % Normal 32.0-36.0 [facility] Comment on above: Performed By: #### Ap G3, BMP3 ####The performing lab is in the report. MCV Auto Entitic volume (RBC) 84.2 fL Normal 80.0-98.0 [facility] Comment on above: Performed By: #### Ap G3, BMP3 ####The performing lab is in the report. Monocytes Auto #/vol (Bld) 0.6 10*3/uL Normal 0.0-0.8 [facility] Comment on above: Performed By: #### Ap Sanchez, BMP3 ####The performing lab is in the report. Monocytes/100 WBC Auto (Bld) 10.7 % High 2.0-10.0 [facility] Comment on above: Performed By: #### Ap Sanchez, BMP3 ####The performing lab is in the report. Platelet mean volume Auto Entitic volume (Bld) 8.5 fL Normal 7.4-10.4 [facility] Comment on above: Performed By: #### Ap Sanchez, BMP3 ####The performing lab is in the report. Platelets Auto #/vol (Bld) 284 10*3/uL Normal 140-440 [facility] Comment on above: Performed By: ###Jose Sanchez, BMP3 ####The performing lab is in the report. RBC Auto #/vol (Bld) 3.55 10*6/uL Low 4.40-5.90 [facility] Comment on above: Performed By: ###Jose Sanchez, BMP3 ####The performing lab is in the report. WBC Auto #/vol (Bld) 5.7 10*3/uL Normal 3.6-10.7 [facility] Comment on above: Performed By: #### Ap Sanchez, BMP3 ####The performing lab is in the report. Basic Metabolic Panelon 07-0 Calcium mass conc 8.9 mg/dL Normal 8.4-10.4 [facility] Comment on above: Performed By: ###Jose Sanchez, BMP3 ####The performing lab is in the report. Glucose mass conc 70 mg/dL Normal 70-100 [facility] Comment on above: Performed By: ###Jose Sanchez, BMP3 ####The performing lab is in the report. Anion gap 3 molar conc 5 Normal [facility] Comment on above: Performed By: ###Jose Sanchez, BMP3 ####The performing lab is in the report. CO2 molar conc 29 mmol/L Normal 22-30 [facility] Comment on above: Performed By: #### M G3, BMP3 ####The performing lab is in the report. Creatinine mass conc 0.78 mg/dL Normal 0.52-1.25 [facility] Comment on above: Performed By: #### M G3, BMP3 ####The performing lab is in the report. GFR/1.73 sq M predicted among blacks MDRD vol rate/area (S/P/Bld) mL/min/{1.73_m2} Normal >60 [facility] Comment on above: Performed By: #### M G3, BMP3 ####The performing lab is in the report. GFR/1.73 sq M predicted among non-blacks MDRD vol rate/area (S/P/Bld) mL/min/{1.73_m2} Normal >60 [facility] Comment on above: Result Comment: Sour ce- MDRD equation with creatinine calibration to IDMS(NKDEP) eGFR not recommended for drug dose adjustment Performed By: #### M G3, BMP3 ####The performing lab is in the report. Urea nitrogen mass conc 15 mg/dL Normal 7-20 [facility] Comment on above: Performed By: #### M G3, BMP3 ####The performing lab is in the report. Chloride molar conc 104 mmol/L Normal 98-107 [facility] Comment on above: Performed By: #### M G3, BMP3 ####The performing lab is in the report. Potassium molar conc 3.5 mmol/L Normal 3.5-5.1 [facility] Comment on above: Performed By: #### M G3, BMP3 ####The performing lab is in the report. Sodium molar conc 137 mmol/L Normal 137-145 [facility] Comment on above: Performed By: #### M G3, BMP3 ####The performing lab is in the report. Glucose,Bedsideon 10-21-2017 Glucose mass conc 93 mg/dL Normal 70-100 [facility] Comment on above: Result Comment: Test performed by glucose meter. Results may be 10%-15% lowerthan serum/plasma values. (CLIA ID [id number]) Performed By: #### M G3, BMP3 ####The performing lab is in the report. Glucose mass conc 137 mg/dL High 70-100 [facility] Comment on above: Result Comment: Test performed by glucose meter. Results may be 10%-15% lowerthan serum/plasma values. (CLIA ID [id number]) Performed By: #### Ap G3, BMP3 ####The performing lab is in the report. Glucose mass conc 91 mg/dL Normal 70-100 [facility] Comment on above: Result Comment: Test performed by glucose meter. Results may be 10%-15% lowerthan serum/plasma values. (CLIA ID [id number]) Performed By: #### Ap G3, BMP3 ####The performing lab is in the report. Glucose mass conc 99 mg/dL Normal 70-100 [facility] Comment on above: Result Comment: Test performed by glucose meter. Results may be 10%-15% lowerthan serum/plasma values. (CLIA ID [id number]) Performed By: #### Ap G3, BMP3 ####The performing lab is in the report. Glucose mass conc 93 mg/dL Normal 70-100 [facility] Comment on above: Result Comment: Test performed by glucose meter. Results may be 10%-15% lowerthan serum/plasma values. (CLIA ID [id number]) Performed By: #### M G3, BMP3 ####The performing lab is in the report. Hemogram w/ Autodiffon 10-21 Abs Baso Cnt 0.0 10*3/uL Normal 0.0-0.2 [facility] Comment on above: Performed By: #### M G3, BMP3 ####The performing lab is in the report. Abs Neutrophile Cnt 3.4 10*3/uL Normal 1.8-7.0 [facility] Comment on above: Performed By: #### Ap G3, BMP3 ####The performing lab is in the report. Basophils/100 WBC Auto (Bld) 0.8 % Normal 0.0-2.0 [facility] Comment on above: Performed By: #### M G3, BMP3 ####The performing lab is in the report. Eosinophils Auto #/vol (Bld) 0.1 10*3/uL Normal 0.0-0.5 [facility] Comment on above: Performed By: #### M G3, BMP3 ####The performing lab is in the report. Eosinophils/100 WBC Auto (Bld) 2.3 % Normal 1.0-6.0 [facility] Comment on above: Performed By: #### M G3, BMP3 ####The performing lab is in the report. Erythrocyte distribution width Auto Ratio (RBC) 15.6 % High 11.5-14.5 [facility] Comment on above: Performed By: #### M G3, BMP3 ####The performing lab is in the report. Granulocytes/100 WBC (Bld) 68.1 % Normal 40.0-80.0 [facility] Comment on above: Performed By: #### Ap G3, BMP3 ####The performing lab is in the report. Hematocrit Auto Volume Fraction (Bld) 28.9 % Low 40.0-52.0 [facility] Comment on above: Performed By: #### Ap G3, BMP3 ####The performing lab is in the report. Hemoglobin mass conc (Bld) 9.5 g/dL Low 13.0-18.0 [facility] Comment on above: Performed By: #### Ap G3, BMP3 ####The performing lab is in the report. Lymphocytes Auto #/vol (Bld) 0.8 10*3/uL Low 1.0-4.3 [facility] Comment on above: Performed By: #### M G3, BMP3 ####The performing lab is in the report. Lymphocytes/100 WBC Auto (Bld) 16.5 % Low 20.0-40.0 [facility] Comment on above: Performed By: #### M G3, BMP3 ####The performing lab is in the report. MCH Auto Entitic mass (RBC) 27.7 pg Normal 26.0-34.0 [facility] Comment on above: Performed By: #### M G3, BMP3 ####The performing lab is in the report. MCHC Auto mass conc (RBC) 32.8 % Normal 32.0-36.0 [facility] Comment on above: Performed By: #### M G3, BMP3 ####The performing lab is in the report. MCV Auto Entitic volume (RBC) 84.4 fL Normal 80.0-98.0 [facility] Comment on above: Performed By: #### Ap G3, BMP3 ####The performing lab is in the report. Monocytes Auto #/vol (Bld) 0.6 10*3/uL Normal 0.0-0.8 [facility] Comment on above: Performed By: #### Ap G3, BMP3 ####The performing lab is in the report. Monocytes/100 WBC Auto (Bld) 12.3 % High 2.0-10.0 [facility] Comment on above: Performed By: #### Ap G3, BMP3 ####The performing lab is in the report. Platelet mean volume Auto Entitic volume (Bld) 8.8 fL Normal 7.4-10.4 [facility] Comment on above: Performed By: #### Ap G3, BMP3 ####The performing lab is in the report. Platelets Auto #/vol (Bld) 290 10*3/uL Normal 140-440 [facility] Comment on above: Performed By: #### M G3, BMP3 ####The performing lab is in the report. RBC Auto #/vol (Bld) 3.43 10*6/uL Low 4.40-5.90 [facility] Comment on above: Performed By: #### M G3, BMP3 ####The performing lab is in the report. WBC Auto #/vol (Bld) 5.0 10*3/uL Normal 3.6-10.7 [facility] Comment on above: Performed By: #### M G3, BMP3 ####The performing lab is in the report. Basic Metabolic Panelon 07-0 Anion gap 3 molar conc 5 Normal [facility] Comment on above: Performed By: #### H EMDF, APTT, HA1C2 ####The performing lab is in the report. Calcium mass conc 9.2 mg/dL Normal 8.4-10.4 [facility] Comment on above: Performed By: #### H EMDF, APTT, HA1C2 ####The performing lab is in the report. CO2 molar conc 30 mmol/L Normal 22-30 [facility] Comment on above: Performed By: #### H EMDF, APTT, HA1C2 ####The performing lab is in the report. Glucose mass conc 239 mg/dL High 70-100 [facility] Comment on above: Performed By: #### H EMDF, APTT, HA1C2 ####The performing lab is in the report. Urea nitrogen mass conc 13 mg/dL Normal 7-20 [facility] Comment on above: Performed By: #### H EMDF, APTT, HA1C2 ####The performing lab is in the report. Creatinine mass conc 0.72 mg/dL Normal 0.52-1.25 [facility] Comment on above: Performed By: #### H EMDF, APTT, HA1C2 ####The performing lab is in the report. GFR/1.73 sq M predicted among blacks MDRD vol rate/area (S/P/Bld) mL/min/{1.73_m2} Normal >60 [facility] Comment on above: Performed By: #### H EMDF, APTT, HA1C2 ####The performing lab is in the report. GFR/1.73 sq M predicted among non-blacks MDRD vol rate/area (S/P/Bld) mL/min/{1.73_m2} Normal >60 [facility] Comment on above: Result Comment: Sour ce- MDRD equation with creatinine calibration to IDMS(NKDEP) eGFR not recommended for drug dose adjustment Performed By: #### H EMDF, APTT, HA1C2 ####The performing lab is in the report. Potassium molar conc 3.9 mmol/L Normal 3.5-5.1 [facility] Comment on above: Performed By: #### H EMDF, APTT, HA1C2 ####The performing lab is in the report. Chloride molar conc 102 mmol/L Normal 98-107 [facility] [employer] [facility] Comment on above: Performed By: #### H EMDF, APTT, HA1C2 ####The performing lab is in the report. Sodium molar conc 137 mmol/L Normal 137-145 [facility] Comment on above: Performed By: #### [...] 1 S Pip/Tazobactam(MARTITA) <= 4 S Normal [facility] Comment on above: Order Comment: or co llected Performed By: #### H EMDF, APTT, HA1C2 ####The performing lab is in the report. Glucose,Bedsideon 10-20-2017 Glucose mass conc 108 mg/dL High 70-100 [facility] Comment on above: Result Comment: Test performed by glucose meter. Results may be 10%-15% lowerthan serum/plasma values. (CLIA ID [id number]) Performed By: #### M G3, BMP3 ####The performing lab is in the report. Glucose mass conc 131 mg/dL High 70-100 [facility] Comment on above: Result Comment: Test performed by glucose meter. Results may be 10%-15% lowerthan serum/plasma values. (CLIA ID [id number]) Performed By: #### M G3, BMP3 ####The performing lab is in the report. Glucose mass conc 141 mg/dL High 70-100 [facility] Comment on above: Result Comment: Test performed by glucose meter. Results may be 10%-15% lowerthan serum/plasma values. (CLIA ID [id number]) Performed By: #### M G3, BMP3 ####The performing lab is in the report. Glucose mass conc 134 mg/dL High 70-100 [facility] Comment on above: Result Comment: Test performed by glucose meter. Results may be 10%-15% lowerthan serum/plasma values. (CLIA ID [id number]) Performed By: #### H EMDF, APTT, HA1C2 ####The performing lab is in the report. Hemoglobin A1Con 10-20-2017 Glucose mass conc 157 mg/dL Normal [facility] Comment on above: Performed By: #### H EMDF, APTT, HA1C2 ####The performing lab is in the report. Hemoglobin A1c/Hemoglobin.total mass fraction (Bld) 7.1 % High 4.0-5.7 [facility] Comment on above: Result Comment: --Hg bA1C levels may not be accurate in patients who haverenal disease, received recent blood transfusions, are anemic,or who have dyshemoglobinemia. Performed By: #### H EMDF, APTT, HA1C2 ####The performing lab is in the report. Hemogram w/ Autodiffon 10-20 Abs Baso Cnt 0.0 10*3/uL Normal 0.0-0.2 [facility] Comment on above: Performed By: #### H EMDF, APTT, HA1C2 ####The performing lab is in the report. Abs Neutrophile Cnt 3.6 10*3/uL Normal 1.8-7.0 [facility] Comment on above: Performed By: #### H EMDF, APTT, HA1C2 ####The performing lab is in the report. Basophils/100 WBC Auto (Bld) 0.7 % Normal 0.0-2.0 [facility] Comment on above: Performed By: #### H EMDF, APTT, HA1C2 ####The performing lab is in the report. Eosinophils Auto #/vol (Bld) 0.1 10*3/uL Normal 0.0-0.5 [facility] Comment on above: Performed By: #### H EMDF, APTT, HA1C2 ####The performing lab is in the report. Eosinophils/100 WBC Auto (Bld) 2.0 % Normal 1.0-6.0 [facility] Comment on above: Performed By: #### H EMDF, APTT, HA1C2 ####The performing lab is in the report. Erythrocyte distribution width Auto Ratio (RBC) 15.9 % High 11.5-14.5 [facility] Comment on above: Performed By: #### H EMDF, APTT, HA1C2 ####The performing lab is in the report. Granulocytes/100 WBC (Bld) 71.6 % Normal 40.0-80.0 [facility] Comment on above: Performed By: #### H EMDF, APTT, HA1C2 ####The performing lab is in the report. Hematocrit Auto Volume Fraction (Bld) 28.0 % Low 40.0-52.0 [facility] Comment on above: Performed By: #### H EMDF, APTT, HA1C2 ####The performing lab is in the report. Hemoglobin mass conc (Bld) 9.2 g/dL Low 13.0-18.0 [facility] Comment on above: Performed By: #### H EMDF, APTT, HA1C2 ####The performing lab is in the report. Lymphocytes Auto #/vol (Bld) 0.7 10*3/uL Low 1.0-4.3 [facility] Comment on above: Performed By: #### H EMDF, APTT, HA1C2 ####The performing lab is in the report. Lymphocytes/100 WBC Auto (Bld) 13.8 % Low 20.0-40.0 [facility] Comment on above: Performed By: #### H EMDF, APTT, HA1C2 ####The performing lab is in the report. MCH Auto Entitic mass (RBC) 27.8 pg Normal 26.0-34.0 [facility] Comment on above: Performed By: #### H EMDF, APTT, HA1C2 ####The performing lab is in the report. MCHC Auto mass conc (RBC) 32.9 % Normal 32.0-36.0 [facility] Comment on above: Performed By: #### H EMDF, APTT, HA1C2 ####The performing lab is in the report. MCV Auto Entitic volume (RBC) 84.5 fL Normal 80.0-98.0 [facility] Comment on above: Performed By: #### H EMDF, APTT, HA1C2 ####The performing lab is in the report. Monocytes Auto #/vol (Bld) 0.6 10*3/uL Normal 0.0-0.8 [facility] Comment on above: Performed By: #### H EMDF, APTT, HA1C2 ####The performing lab is in the report. Monocytes/100 WBC Auto (Bld) 11.9 % High 2.0-10.0 [facility] Comment on above: Performed By: #### H EMDF, APTT, HA1C2 ####The performing lab is in the report. Platelet mean volume Auto Entitic volume (Bld) 8.1 fL Normal 7.4-10.4 [facility] Comment on above: Performed By: #### H EMDF, APTT, HA1C2 ####The performing lab is in the report. Platelets Auto #/vol (Bld) 305 10*3/uL Normal 140-440 [facility] Comment on above: Performed By: #### H EMDF, APTT, HA1C2 ####The performing lab is in the report. RBC Auto #/vol (Bld) 3.32 10*6/uL Low 4.40-5.90 [facility] Comment on above: Performed By: #### H EMDF, APTT, HA1C2 ####The performing lab is in the report. WBC Auto #/vol (Bld) 5.1 10*3/uL Normal 3.6-10.7 [facility] Comment on above: Performed By: #### H EMDF, APTT, HA1C2 ####The performing lab is in the report. Basic Metabolic Panelon Anion gap 3 molar conc 7 Normal [facility] Comment on above: Performed By: #### H EMDF, APTT, HA1C2 ####The performing lab is in the report. Calcium mass conc 9.4 mg/dL Normal 8.4-10.4 [facility] Comment on above: Performed By: #### H EMDF, APTT, HA1C2 ####The performing lab is in the report. CO2 molar conc 29 mmol/L Normal 22-30 [facility] Comment on above: Performed By: #### H EMDF, APTT, HA1C2 ####The performing lab is in the report. Glucose mass conc 110 mg/dL High 70-100 [facility] Comment on above: Performed By: #### H EMDF, APTT, HA1C2 ####The performing lab is in the report. Urea nitrogen mass conc 12 mg/dL Normal 7-20 [facility] Comment on above: Performed By: #### H EMDF, APTT, HA1C2 ####The performing lab is in the report. Creatinine mass conc 0.73 mg/dL Normal 0.52-1.25 [facility] Comment on above: Performed By: #### H EMDF, APTT, HA1C2 ####The performing lab is in the report. GFR/1.73 sq M predicted among blacks MDRD vol rate/area (S/P/Bld) mL/min/{1.73_m2} Normal >60 [facility] Comment on above: Performed By: #### H EMDF, APTT, HA1C2 ####The performing lab is in the report. GFR/1.73 sq M predicted among non-blacks MDRD vol rate/area (S/P/Bld) mL/min/{1.73_m2} Normal >60 [facility] Comment on above: Result Comment: Sour ce- MDRD equation with creatinine calibration to IDMS(NKDEP) eGFR not recommended for drug dose adjustment Performed By: #### H EMDF, APTT, HA1C2 ####The performing lab is in the report. Potassium molar conc 3.9 mmol/L Normal 3.5-5.1 [facility] Comment on above: Performed By: #### H EMDF, APTT, HA1C2 ####The performing lab is in the report. Sodium molar conc 137 mmol/L Normal 137-145 [facility] Comment on above: Performed By: #### H EMDF, APTT, HA1C2 ####The performing lab is in the report. Chloride molar conc 102 mmol/L Normal 98-107 [facility] Comment on above: Performed By: #### H EMDF, APTT, HA1C2 ####The performing lab is in the report. CR Chest Portableon 10-20-19 18 CR Chest Portable Patient Name: JAMES REYES Diagnostic Radiology Exam Date/Time 10/19/2017 18:16:20 EDT Exam CR Chest Portable Ordering Physician JACQUES WADE Accession Number [id number] CPT4 Codes 12518 () Reason For Exam picc Report PORTABLE [...] Transcribed Date and Time: 10/19/2017 6:17 Normal [facility] Glucose,Bedsideon 10-19-2017 Glucose mass conc 151 mg/dL High 70-100 [facility] Comment on above: Result Comment: Test performed by glucose meter. Results may be 10%-15% lowerthan serum/plasma values. (CLIA ID [id number]) Performed By: #### H EMDF, APTT, HA1C2 ####The performing lab is in the report. Glucose mass conc 115 mg/dL High 70-100 [facility] Comment on above: Result Comment: Test performed by glucose meter. Results may be 10%-15% lowerthan serum/plasma values. (CLIA ID [id number]) Performed By: #### H EMDF, APTT, HA1C2 ####The performing lab is in the report. Glucose mass conc 162 mg/dL High 70-100 [facility] Comment on above: Result Comment: Test performed by glucose meter. Results may be 10%-15% lowerthan serum/plasma values. (CLIA ID [id number]) Performed By: #### H EMDF, APTT, HA1C2 ####The performing lab is in the report. Glucose mass conc 142 mg/dL High 70-100 [facility] Comment on above: Result Comment: Test performed by glucose meter. Results may be 10%-15% lowerthan serum/plasma values. (CLIA ID [id number]) Performed By: #### H EMDF, APTT, HA1C2 ####The performing lab is in the report. Hemogram w/ Autodiffon 10-19 Abs Baso Cnt 0.0 10*3/uL Normal 0.0-0.2 [facility] Comment on above: Performed By: #### H EMDF, APTT, HA1C2 ####The performing lab is in the report. Abs Neutrophile Cnt 3.1 10*3/uL Normal 1.8-7.0 [facility] Comment on above: Performed By: #### H EMDF, APTT, HA1C2 ####The performing lab is in the report. Basophils/100 WBC Auto (Bld) 0.8 % Normal 0.0-2.0 [facility] Comment on above: Performed By: #### H EMDF, APTT, HA1C2 ####The performing lab is in the report. Eosinophils Auto #/vol (Bld) 0.1 10*3/uL Normal 0.0-0.5 [facility] Comment on above: Performed By: #### H EMDF, APTT, HA1C2 ####The performing lab is in the report. Eosinophils/100 WBC Auto (Bld) 2.1 % Normal 1.0-6.0 [facility] Comment on above: Performed By: #### H EMDF, APTT, HA1C2 ####The performing lab is in the report. Erythrocyte distribution width Auto Ratio (RBC) 15.7 % High 11.5-14.5 [facility] Comment on above: Performed By: #### H EMDF, APTT, HA1C2 ####The performing lab is in the report. Granulocytes/100 WBC (Bld) 67.4 % Normal 40.0-80.0 [facility] Comment on above: Performed By: #### H EMDF, APTT, HA1C2 ####The performing lab is in the report. Hematocrit Auto Volume Fraction (Bld) 29.9 % Low 40.0-52.0 [facility] Comment on above: Performed By: #### H EMDF, APTT, HA1C2 ####The performing lab is in the report. Hemoglobin mass conc (Bld) 9.8 g/dL Low 13.0-18.0 [facility] Comment on above: Performed By: #### H EMDF, APTT, HA1C2 ####The performing lab is in the report. Lymphocytes Auto #/vol (Bld) 0.8 10*3/uL Low 1.0-4.3 [facility] Comment on above: Performed By: #### H EMDF, APTT, HA1C2 ####The performing lab is in the report. Lymphocytes/100 WBC Auto (Bld) 17.4 % Low 20.0-40.0 [facility] Comment on above: Performed By: #### H EMDF, APTT, HA1C2 ####The performing lab is in the report. MCH Auto Entitic mass (RBC) 27.6 pg Normal 26.0-34.0 [facility] Comment on above: Performed By: #### H EMDF, APTT, HA1C2 ####The performing lab is in the report. MCHC Auto mass conc (RBC) 32.8 % Normal 32.0-36.0 [facility] Comment on above: Performed By: #### H EMDF, APTT, HA1C2 ####The performing lab is in the report. MCV Auto Entitic volume (RBC) 84.2 fL Normal 80.0-98.0 [facility] Comment on above: Performed By: #### H EMDF, APTT, HA1C2 ####The performing lab is in the report. Monocytes Auto #/vol (Bld) 0.6 10*3/uL Normal 0.0-0.8 [facility] Comment on above: Performed By: #### H EMDF, APTT, HA1C2 ####The performing lab is in the report. Monocytes/100 WBC Auto (Bld) 12.3 % High 2.0-10.0 [facility] Comment on above: Performed By: #### H EMDF, APTT, HA1C2 ####The performing lab is in the report. Platelet mean volume Auto Entitic volume (Bld) 7.9 fL Normal 7.4-10.4 [facility] Comment on above: Performed By: #### H EMDF, APTT, HA1C2 ####The performing lab is in the report. Platelets Auto #/vol (Bld) 367 10*3/uL Normal 140-440 [facility] Comment on above: Performed By: #### H EMDF, APTT, HA1C2 ####The performing lab is in the report. RBC Auto #/vol (Bld) 3.55 10*6/uL Low 4.40-5.90 [facility] Comment on above: Performed By: #### H EMDF, APTT, HA1C2 ####The performing lab is in the report. WBC Auto #/vol (Bld) 4.7 10*3/uL Normal 3.6-10.7 [facility] Comment on above: Performed By: #### H EMDF, APTT, HA1C2 ####The performing lab is in the report. Glucose,Bedsideon 10-18-2017 Glucose mass conc 140 mg/dL High 70-100 [facility] Comment on above: Result Comment: Test performed by glucose meter. Results may be 10%-15% lowerthan serum/plasma values. (CLIA ID [id number]) Performed By: #### H EMDF, APTT, HA1C2 ####The performing lab is in the report. Glucose mass conc 133 mg/dL High 70-100 [facility] Comment on above: Result Comment: Conf irmation Drawn;Caregiver Notified;Test performed by glucose meter. Results may be 10%-15% lowerthan serum/plasma values. (CLIA ID [id number]) Performed By: #### H EMDF, APTT, HA1C2 ####The performing lab is in the report. Glucose mass conc 136 mg/dL High 70-100 [facility] Comment on above: Result Comment: Test performed by glucose meter. Results may be 10%-15% lowerthan serum/plasma values. (CLIA ID [id number]) Performed By: #### H EMDF, APTT, HA1C2 ####The performing lab is in the report. Glucose mass conc 139 mg/dL High 70-100 [facility] Comment on above: Result Comment: Test performed by glucose meter. Results may be 10%-15% lowerthan serum/plasma values. (CLIA ID [id number]) Performed By: #### H EMDF, APTT, HA1C2 ####The performing lab is in the report. Glucose mass conc 136 mg/dL High 70-100 [facility] Comment on above: Result Comment: Test performed by glucose meter. Results may be 10%-15% lowerthan serum/plasma values. (CLIA ID [id number]) Performed By: #### H EMDF, APTT, HA1C2 ####The performing lab is in the report. Glucose mass conc 116 mg/dL High 70-100 [facility] Comment on above: Result Comment: Test performed by glucose meter. Results may be 10%-15% lowerthan serum/plasma values. (CLIA ID [id number]) Performed By: #### H EMDF, APTT, HA1C2 ####The performing lab is in the report. Basic Metabolic Panelon 07-0 Anion gap 3 molar conc 7 Normal [facility] Comment on above: Performed By: #### H EMDF, APTT, HA1C2 ####The performing lab is in the report. Calcium mass conc 9.2 mg/dL Normal 8.4-10.4 [facility] Comment on above: Performed By: #### H EMDF, APTT, HA1C2 ####The performing lab is in the report. CO2 molar conc 28 mmol/L Normal 22-30 [facility] Comment on above: Performed By: #### H EMDF, APTT, HA1C2 ####The performing lab is in the report. Glucose mass conc 182 mg/dL High 70-100 [facility] Comment on above: Performed By: #### H EMDF, APTT, HA1C2 ####The performing lab is in the report. Urea nitrogen mass conc 16 mg/dL Normal 7-20 [facility] Comment on above: Performed By: #### H EMDF, APTT, HA1C2 ####The performing lab is in the report. Creatinine mass conc 0.77 mg/dL Normal 0.52-1.25 [facility] Comment on above: Performed By: #### H EMDF, APTT, HA1C2 ####The performing lab is in the report. GFR/1.73 sq M predicted among blacks MDRD vol rate/area (S/P/Bld) mL/min/{1.73_m2} Normal >60 [facility] Comment on above: Performed By: #### H EMDF, APTT, HA1C2 ####The performing lab is in the report. GFR/1.73 sq M predicted among non-blacks MDRD vol rate/area (S/P/Bld) mL/min/{1.73_m2} Normal >60 [facility] Comment on above: Result Comment: Sour ce- MDRD equation with creatinine calibration to IDMS(NKDEP) eGFR not recommended for drug dose adjustment Performed By: #### H EMDF, APTT, HA1C2 ####The performing lab is in the report. Potassium molar conc 4.9 mmol/L Normal 3.5-5.1 [facility] Comment on above: Performed By: #### H EMDF, APTT, HA1C2 ####The performing lab is in the report. Sodium molar conc 137 mmol/L Normal 137-145 [facility] Comment on above: Performed By: #### H EMDF, APTT, HA1C2 ####The performing lab is in the report. Chloride molar conc 102 mmol/L Normal 98-107 [facility] Comment on above: Performed By: #### H EMDF, APTT, HA1C2 ####The performing lab is in the report. Glucose,Bedsideon 10-17-2017 Glucose mass conc 117 mg/dL High 70-100 [facility] Comment on above: Result Comment: Test performed by glucose meter. Results may be 10%-15% lowerthan serum/plasma values. (CLIA ID [id number]) Performed By: #### H EMDF, APTT, HA1C2 ####The performing lab is in the report. Glucose mass conc 170 mg/dL High 70-100 [facility] Comment on above: Result Comment: Test performed by glucose meter. Results may be 10%-15% lowerthan serum/plasma values. (CLIA ID [id number]) Performed By: #### H EMDF, APTT, HA1C2 ####The performing lab is in the report. Glucose mass conc 180 mg/dL High 70-100 [facility] Comment on above: Result Comment: Test performed by glucose meter. Results may be 10%-15% lowerthan serum/plasma values. (CLIA ID [id number]) Performed By: #### H EMDF, APTT, HA1C2 ####The performing lab is in the report. Hemogramon 10-17-2017 Erythrocyte distribution width Auto Ratio (RBC) 15.5 % High 11.5-14.5 [facility] Comment on above: Performed By: #### H EMDF, APTT, HA1C2 ####The performing lab is in the report. Hematocrit Auto Volume Fraction (Bld) 29.0 % Low 40.0-52.0 [facility] Comment on above: Performed By: #### H EMDF, APTT, HA1C2 ####The performing lab is in the report. Hemoglobin mass conc (Bld) 9.3 g/dL Low 13.0-18.0 [facility] Comment on above: Performed By: #### H EMDF, APTT, HA1C2 ####The performing lab is in the report. MCH Auto Entitic mass (RBC) 27.2 pg Normal 26.0-34.0 [facility] Comment on above: Performed By: #### H EMDF, APTT, HA1C2 ####The performing lab is in the report. MCHC Auto mass conc (RBC) 31.9 % Low 32.0-36.0 [facility] Comment on above: Performed By: #### H EMDF, APTT, HA1C2 ####The performing lab is in the report. MCV Auto Entitic volume (RBC) 85.2 fL Normal 80.0-98.0 [facility] Comment on above: Performed By: #### H EMDF, APTT, HA1C2 ####The performing lab is in the report. Platelet mean volume Auto Entitic volume (Bld) 8.5 fL Normal 7.4-10.4 [facility] Comment on above: Performed By: #### H EMDF, APTT, HA1C2 ####The performing lab is in the report. Platelets Auto #/vol (Bld) 364 10*3/uL Normal 140-440 [facility] Comment on above: Performed By: #### H EMDF, APTT, HA1C2 ####The performing lab is in the report. RBC Auto #/vol (Bld) 3.40 10*6/uL Low 4.40-5.90 [facility] Comment on above: Performed By: #### H EMDF, APTT, HA1C2 ####The performing lab is in the report. WBC Auto #/vol (Bld) 4.3 10*3/uL Normal 3.6-10.7 [facility] Comment on above: Performed By: #### H EMDF, APTT, HA1C2 ####The performing lab is in the report. STAIN ACID-FASTon 10-17-2017 STAIN ACID-FAST STAIN ACID-FAST --> Status: F No acid-fast bacilli seen in smear. - Method: Fluorescent Stain - Method: Fluorescent Stain Normal [facility] Comment on above: Order Comment: or co llected Performed By: #### H EMDF, APTT, HA1C2 ####The performing lab is in the report. STAIN FUNGUSon 10-17-2017 STAIN FUNGUS STAIN FUNGUS --> Status: F No fungal elements seen. - Method: Direct Exam by Calcofluor Stain - Method: Direct Exam by Calcofluor Stain Normal [facility] Comment on above: Order Comment: or co llected Performed By: #### H EMDF, APTT, HA1C2 ####The performing lab is in the report. Glucose,Bedsideon 10-16-2017 Glucose mass conc 260 mg/dL High 70-100 [facility] Comment on above: Result Comment: Test performed by glucose meter. Results may be 10%-15% lowerthan serum/plasma values. (CLIA ID [id number]) Performed By: #### H EMDF, APTT, HA1C2 ####The performing lab is in the report. Glucose mass conc 157 mg/dL High 70-100 [facility] Comment on above: Result Comment: Test performed by glucose meter. Results may be 10%-15% lowerthan serum/plasma values. (CLIA ID [id number]) Performed By: #### H EMDF, MG3, BMP3 ####The performing lab is in the report. Glucose mass conc 127 mg/dL High 70-100 [facility] Comment on above: Result Comment: Test performed by glucose meter. Results may be 10%-15% lowerthan serum/plasma values. (CLIA ID [id number]) Performed By: #### H EMDF, MG3, BMP3 ####The performing lab is in the report. Glucose mass conc 149 mg/dL High 70-100 [facility] Comment on above: Result Comment: Test performed by glucose meter. Results may be 10%-15% lowerthan serum/plasma values. (CLIA ID [id number]) Performed By: #### H EMDF, MG3, BMP3 ####The performing lab is in the report. Surgical Pathologyon 018 Surgical Pathology [id number] [facility] PATHOLOGY AND LABORATORY MEDICINE [address] [place] [address] FINAL SURGICAL PATHOLOGY REPORT NAME: JAMES REYES .O.B.: 1955 62 Y [facility] NO[facility] [id number]: [id number] A PROCEDURE 10/16/2017 DATE:SURGEON: STACEY CLEMONS M.D. RECEIVED 10/17/2017 DATE:ATTENDING: STACEY CLEMONS M.D. REPORT DATE: 10/19/2017 COPIES TO: DIAGNOSIS:TISSUE, SUPERFICIAL STERNAL WOUND, EXCISION - FIBROADIPOSE TISSUE WITHACUTE INFLAMMATION AND FAT NECROSIS.NPL/0RW ALONSO YIP MD CLINICAL INFORMATION: Superficial sternal wound dehiscenceSPECIMEN: WOUND GROSS DESCRIPTION:Superficia l sternal wound debridement, fat necrosisReceived in formalin are fragments of rubbery, yellow-escobar tissueaggregating to 4 x 3 x 1 cm. Cut surfaces are yellow-garcia to escobar incolor. No areas of hemorrhage are identified. Some areas appearsomewhat friable. Random sections are submitted in a single cassette.(bits ss, 1) [id number]: The following statement applies to allimmunohistochemistry , in situ hybridization, molecular studies, andimmunofluorescence testing.The use of one or more reagents in the above tests is regulated as ananalyte specific reagent (ASR). These tests were developed and theirperformance characteristics determined by the [facility]. They have not been cleared by [...] false negativity on decalcified specimens.Professional Performing Location: [address] [address]. DEPARTMENT OF PATHOLOGY AND LABORATORY MEDICINE [place], [place] [address] Normal [facility] Basic Metabolic Panelon 05-0 Calcium mass conc 9.1 mg/dL Normal 8.4-10.2 [facility] Comment on above: Performed By: #### H EMDF, MG3, BMP3 ####The performing lab is in the report. Anion gap 3 molar conc 7 mmol/L Normal [facility] Comment on above: Performed By: #### H EMDF, MG3, BMP3 ####The performing lab is in the report. CO2 molar conc 32 mmol/L High 22-30 [facility] Comment on above: Performed By: #### H EMDF, MG3, BMP3 ####The performing lab is in the report. Creatinine mass conc 1.11 mg/dL Normal 0.52-1.25 [facility] Comment on above: Performed By: #### H EMDF, MG3, BMP3 ####The performing lab is in the report. GFR/1.73 sq M predicted among blacks MDRD vol rate/area (S/P/Bld) mL/min/{1.73_m2} Normal >60 [facility] Comment on above: Performed By: #### H EMDF, MG3, BMP3 ####The performing lab is in the report. GFR/1.73 sq M predicted among non-blacks MDRD vol rate/area (S/P/Bld) mL/min/{1.73_m2} Normal >60 [facility] Comment on above: Result Comment: Sour ce- MDRD equation with creatinine calibration to IDMS(NKDEP)eGFR not recommended for drug dose adjustment Performed By: #### H EMDF, MG3, BMP3 ####The performing lab is in the report. Glucose mass conc 47 mg/dL Low 70-100 [facility] Comment on above: Performed By: #### H EMDF, MG3, BMP3 ####The performing lab is in the report. Urea nitrogen mass conc 16 mg/dL Normal 7-20 [facility] Comment on above: Performed By: #### H EMDF, MG3, BMP3 ####The performing lab is in the report. Chloride molar conc 99 mmol/L Normal 98-107 [facility] Comment on above: Performed By: #### H EMDF, MG3, BMP3 ####The performing lab is in the report. Potassium molar conc 3.4 mmol/L Low 3.5-5.1 [facility] Comment on above: Performed By: #### H EMDF, MG3, BMP3 ####The performing lab is in the report. Sodium molar conc 137 mmol/L Normal 137-145 [facility] Comment on above: Performed By: #### H EMDF, MG3, BMP3 ####The performing lab is in the report. CR Chest Portableon 08-17-19 18 CR Chest Portable Patient Name: JAMES REYES Diagnostic Radiology Exam Date/Time 08/16/2017 05:45:45 EDT Exam CR Chest Portable Ordering Physician STACEY CLEMONS Accession Number [id number] CPT4 Codes 95251 () Reason For Exam Post op open heart surgery Report CLINICAL INFORMATION: Status post open heart surgery. CHEST X-RAY, PORTABLE, 0531 hours: An AP portable view is compared to the prior examination of the previous day. The examination is underpenetrated. There are median sternotomy wires from prior thoracic surgery. A right internal jugular Safford-Ivelisse introducer sheath is unchanged in position. The left lower hemithorax chest tube has been removed. There is no change in the appearance of the prominent mediastinum and cardiac silhouette. The pulmonary vascular congestion is unchanged. There is no pneumothorax. No other acute process or interval change. Report Dictated on Final Dictated: 08/16/2017 7:48 am Dictating Physician: MD NERI, MARSHALL Signed Date and Time: 08/16/2017 8:13 am Signed by: MD NERI BINGHAMTON Transcribed Date and Time: 08/16/2017 7:48 Normal [facility] Glucose,Bedsideon 08-16-2017 Glucose mass conc 201 mg/dL High 70-100 [facility] Comment on above: Result Comment: Test performed by glucose meter. Results may be 10%-15% lowerthan serum/plasma values. (CLIA ID [id number]) Performed By: #### B GLU ####The performing lab is in the report. Hemogramon 08-16-2017 Erythrocyte distribution width Auto Ratio (RBC) 14.5 % Normal 11.5-14.5 [facility] Comment on above: Performed By: #### H EMDF, MG3, BMP3 ####The performing lab is in the report. Hematocrit Auto Volume Fraction (Bld) 26.2 % Low 40.0-52.0 [facility] Comment on above: Performed By: #### H EMDF, MG3, BMP3 ####The performing lab is in the report. Hemoglobin mass conc (Bld) 8.6 g/dL Low 13.0-18.0 [facility] Comment on above: Performed By: #### H EMDF, MG3, BMP3 ####The performing lab is in the report. MCH Auto Entitic mass (RBC) 30.6 pg Normal 26.0-34.0 [facility] Comment on above: Performed By: #### H EMDF, MG3, BMP3 ####The performing lab is in the report. MCHC Auto mass conc (RBC) 32.7 % Normal 32.0-36.0 [facility] Comment on above: Performed By: #### H EMDF, MG3, BMP3 ####The performing lab is in the report. MCV Auto Entitic volume (RBC) 93.6 fL Normal 80.0-98.0 [facility] Comment on above: Performed By: #### H EMDF, MG3, BMP3 ####The performing lab is in the report. Platelet mean volume Auto Entitic volume (Bld) 8.5 fL Normal 7.4-10.4 [facility] Comment on above: Performed By: #### H EMDF, MG3, BMP3 ####The performing lab is in the report. Platelets Auto #/vol (Bld) 312 10*3/uL Normal 140-440 [facility] Comment on above: Performed By: #### H EMDF, MG3, BMP3 ####The performing lab is in the report. RBC Auto #/vol (Bld) 2.81 10*6/uL Low 4.40-5.90 [facility] Comment on above: Performed By: #### H EMDF, MG3, BMP3 ####The performing lab is in the report. WBC Auto #/vol (Bld) 4.8 10*3/uL Normal 3.6-10.7 [facility] Comment on above: Performed By: #### H EMDF, MG3, BMP3 ####The performing lab is in the report. Magnesiumon 08-16-2017 Magnesium mass conc 1.9 mg/dL Normal 1.6-2.3 [facility] Comment on above: Performed By: #### H EMDF, MG3, BMP3 ####The performing lab is in the report. Basic Metabolic Panelon Calcium mass conc 8.4 mg/dL Normal 8.4-10.2 [facility] Comment on above: Performed By: #### H EMDF, MG3, BMP3 ####The performing lab is in the report. Glucose mass conc 106 mg/dL High 70-100 [facility] Comment on above: Performed By: #### H EMDF, MG3, BMP3 ####The performing lab is in the report. Anion gap 3 molar conc 6 mmol/L Normal [facility] Comment on above: Performed By: #### H EMDF, MG3, BMP3 ####The performing lab is in the report. CO2 molar conc 27 mmol/L Normal 22-30 [facility] Comment on above: Performed By: #### H EMDF, MG3, BMP3 ####The performing lab is in the report. Creatinine mass conc 1.04 mg/dL Normal 0.52-1.25 [facility] Comment on above: Performed By: #### H EMDF, MG3, BMP3 ####The performing lab is in the report. GFR/1.73 sq M predicted among blacks MDRD vol rate/area (S/P/Bld) mL/min/{1.73_m2} Normal >60 [facility] Comment on above: Performed By: #### H EMDF, MG3, BMP3 ####The performing lab is in the report. GFR/1.73 sq M predicted among non-blacks MDRD vol rate/area (S/P/Bld) mL/min/{1.73_m2} Normal >60 [facility] Comment on above: Result Comment: Sour ce- MDRD equation with creatinine calibration to IDMS(NKDEP)eGFR not recommended for drug dose adjustment Performed By: #### H EMDF, MG3, BMP3 ####The performing lab is in the report. Urea nitrogen mass conc 19 mg/dL Normal 7-20 [facility] Comment on above: Performed By: #### H EMDF, MG3, BMP3 ####The performing lab is in the report. Chloride molar conc 102 mmol/L Normal 98-107 [facility] Comment on above: Performed By: #### H EMDF, MG3, BMP3 ####The performing lab is in the report. Potassium molar conc 4.4 mmol/L Normal 3.5-5.1 [facility] Comment on above: Performed By: #### H EMDF, MG3, BMP3 ####The performing lab is in the report. Sodium molar conc 135 mmol/L Low 137-145 [facility] Comment on above: Performed By: #### H EMDF, MG3, BMP3 ####The performing lab is in the report. CR Chest Portableon 08-16-19 18 CR Chest Portable Patient Name: JAMES REYES Diagnostic Radiology Exam Date/Time 08/15/2017 05:46:21 EDT Exam CR Chest Portable Ordering Physician STACEY CLEMONS Accession Number [id number] CPT4 Codes 81202 () Reason For Exam Post op open [...] Transcribed Date and Time: 08/15/2017 7:17 Normal [facility] Hemogramon 08-15-2017 Erythrocyte distribution width Auto Ratio (RBC) 14.6 % High 11.5-14.5 [facility] Comment on above: Performed By: #### H EMDF, MG3, BMP3 ####The performing lab is in the report. Hematocrit Auto Volume Fraction (Bld) 24.1 % Low 40.0-52.0 [facility] Comment on above: Performed By: #### H EMDF, MG3, BMP3 ####The performing lab is in the report. Hemoglobin mass conc (Bld) 7.8 g/dL Low 13.0-18.0 [facility] Comment on above: Performed By: #### H EMDF, MG3, BMP3 ####The performing lab is in the report. MCH Auto Entitic mass (RBC) 30.8 pg Normal 26.0-34.0 [facility] Comment on above: Performed By: #### H EMDF, MG3, BMP3 ####The performing lab is in the report. MCHC Auto mass conc (RBC) 32.3 % Normal 32.0-36.0 [facility] Comment on above: Performed By: #### H EMDF, MG3, BMP3 ####The performing lab is in the report. MCV Auto Entitic volume (RBC) 95.4 fL Normal 80.0-98.0 [facility] Comment on above: Performed By: #### H EMDF, MG3, BMP3 ####The performing lab is in the report. Platelet mean volume Auto Entitic volume (Bld) 9.1 fL Normal 7.4-10.4 [facility] Comment on above: Performed By: #### H EMDF, MG3, BMP3 ####The performing lab is in the report. Platelets Auto #/vol (Bld) 208 10*3/uL Normal 140-440 [facility] Comment on above: Performed By: #### H EMDF, MG3, BMP3 ####The performing lab is in the report. RBC Auto #/vol (Bld) 2.52 10*6/uL Low 4.40-5.90 [facility] Comment on above: Performed By: #### H EMDF, MG3, BMP3 ####The performing lab is in the report. WBC Auto #/vol (Bld) 5.0 10*3/uL Normal 3.6-10.7 [facility] Comment on above: Performed By: #### H EMDF, MG3, BMP3 ####The performing lab is in the report. Magnesiumon 08-15-2017 Magnesium mass conc 2.0 mg/dL Normal 1.6-2.3 [facility] Comment on above: Performed By: #### H EMDF, MG3, BMP3 ####The performing lab is in the report. Basic Metabolic Panelon 07-18 Anion gap 3 molar conc 7 mmol/L Normal [facility] Comment on above: Performed By: #### H EMDF, MG3, BMP3 ####The performing lab is in the report. Calcium mass conc 8.6 mg/dL Normal 8.4-10.2 [facility] Comment on above: Performed By: #### H EMDF, MG3, BMP3 ####The performing lab is in the report. CO2 molar conc 25 mmol/L Normal 22-30 [facility] Comment on above: Performed By: #### H EMDF, MG3, BMP3 ####The performing lab is in the report. Creatinine mass conc 1.01 mg/dL Normal 0.52-1.25 [facility] Comment on above: Performed By: #### H EMDF, MG3, BMP3 ####The performing lab is in the report. GFR/1.73 sq M predicted among blacks MDRD vol rate/area (S/P/Bld) mL/min/{1.73_m2} Normal >60 [facility] Comment on above: Performed By: #### H EMDF, MG3, BMP3 ####The performing lab is in the report. GFR/1.73 sq M predicted among non-blacks MDRD vol rate/area (S/P/Bld) mL/min/{1.73_m2} Normal >60 [facility] Comment on above: Result Comment: Sour ce- MDRD equation with creatinine calibration to IDMS(NKDEP)eGFR not recommended for drug dose adjustment Performed By: #### H EMDF, MG3, BMP3 ####The performing lab is in the report. Glucose mass conc 119 mg/dL High 70-100 [facility] Comment on above: Performed By: #### H EMDF, MG3, BMP3 ####The performing lab is in the report. Urea nitrogen mass conc 19 mg/dL Normal 7-20 [facility] Comment on above: Performed By: #### H EMDF, MG3, BMP3 ####The performing lab is in the report. Chloride molar conc 106 mmol/L Normal 98-107 [facility] Comment on above: Performed By: #### H EMDF, MG3, BMP3 ####The performing lab is in the report. Potassium molar conc 4.6 mmol/L Normal 3.5-5.1 [facility] Comment on above: Performed By: #### H EMDF, MG3, BMP3 ####The performing lab is in the report. Sodium molar conc 138 mmol/L Normal 137-145 [facility] Comment on above: Performed By: #### H EMDF, MG3, BMP3 ####The performing lab is in the report. CR Chest Portableon 08-15-19 CR Chest Portable Patient Name: JAMES REYES [facility]: [id number] Diagnostic Radiology Exam Date/Time 08/14/2017 06:57:00 EDT Exam CR Chest Portable Ordering Physician STACEY CLEMONS Accession Number [id number] CPT4 Codes 15763 () Reason For Exam Post op open [...] Transcribed Date and Time: 08/14/2017 5:59 Normal [facility] Hemogramon 08-14-2017 Erythrocyte distribution width Auto Ratio (RBC) 14.9 % High 11.5-14.5 [facility] Comment on above: Performed By: #### H MELANIE MG3, BMP3 ####The performing lab is in the report. Hematocrit Auto Volume Fraction (Bld) 25.3 % Low 40.0-52.0 [facility] Comment on above: Performed By: #### H MELANIE MG3, BMP3 ####The performing lab is in the report. Hemoglobin mass conc (Bld) 8.4 g/dL Low 13.0-18.0 [facility] Comment on above: Performed By: #### H EMDF, MG3, BMP3 ####The performing lab is in the report. MCH Auto Entitic mass (RBC) 31.2 pg Normal 26.0-34.0 [facility] Comment on above: Performed By: #### H EMDF, MG3, BMP3 ####The performing lab is in the report. MCHC Auto mass conc (RBC) 33.0 % Normal 32.0-36.0 [facility] Comment on above: Performed By: #### H EMDF, MG3, BMP3 ####The performing lab is in the report. MCV Auto Entitic volume (RBC) 94.5 fL Normal 80.0-98.0 [facility] Comment on above: Performed By: #### H EMDF, MG3, BMP3 ####The performing lab is in the report. Platelet mean volume Auto Entitic volume (Bld) 9.0 fL Normal 7.4-10.4 [facility] Comment on above: Performed By: #### H EMDF, MG3, BMP3 ####The performing lab is in the report. Platelets Auto #/vol (Bld) 216 10*3/uL Normal 140-440 [facility] Comment on above: Performed By: #### H EMDF, MG3, BMP3 ####The performing lab is in the report. RBC Auto #/vol (Bld) 2.68 10*6/uL Low 4.40-5.90 [facility] Comment on above: Performed By: #### H EMDF, MG3, BMP3 ####The performing lab is in the report. WBC Auto #/vol (Bld) 4.2 10*3/uL Normal 3.6-10.7 [facility] Comment on above: Performed By: #### H EMDF, MG3, BMP3 ####The performing lab is in the report. Magnesiumon 08-14-2017 Magnesium mass conc 2.4 mg/dL High 1.6-2.3 [facility] Comment on above: Performed By: #### H EMDF, MG3, BMP3 ####The performing lab is in the report. Basic Metabolic Panelon 07-17 Calcium mass conc 8.2 mg/dL Low 8.4-10.2 [facility] Comment on above: Performed By: #### H EMDF, MG3, BMP3 ####The performing lab is in the report. Glucose mass conc 163 mg/dL High 70-100 [facility] Comment on above: Performed By: #### H EMDF, MG3, BMP3 ####The performing lab is in the report. Urea nitrogen mass conc 23 mg/dL High 7-20 [facility] Comment on above: Performed By: #### H EMDF, MG3, BMP3 ####The performing lab is in the report. Anion gap 3 molar conc 7 mmol/L Normal [facility] Comment on above: Performed By: #### H EMDF, MG3, BMP3 ####The performing lab is in the report. CO2 molar conc 24 mmol/L Normal 22-30 [facility] Comment on above: Performed By: #### H EMDF, MG3, BMP3 ####The performing lab is in the report. Creatinine mass conc 1.21 mg/dL Normal 0.52-1.25 [facility] Comment on above: Performed By: #### H EMDF, MG3, BMP3 ####The performing lab is in the report. GFR/1.73 sq M predicted among blacks MDRD vol rate/area (S/P/Bld) mL/min/{1.73_m2} Normal >60 [facility] Comment on above: Performed By: #### H EMDF, MG3, BMP3 ####The performing lab is in the report. GFR/1.73 sq M predicted among non-blacks MDRD vol rate/area (S/P/Bld) mL/min/{1.73_m2} Normal >60 [facility] Comment on above: Result Comment: Sour ce- MDRD equation with creatinine calibration to IDMS(NKDEP)eGFR not recommended for drug dose adjustment Performed By: #### H EMDF, MG3, BMP3 ####The performing lab is in the report. Potassium molar conc 4.6 mmol/L Normal 3.5-5.1 [facility] [facility] Comment on above: Performed By: #### H EMDF, MG3, BMP3 ####The performing lab is in the report. Chloride molar conc 102 mmol/L Normal 98-107 [facility] Comment on above: Performed By: #### H EMDF, MG3, BMP3 ####The performing lab is in the report. Sodium molar conc 134 mmol/L Low 137-145 [facility] Comment on above: Performed By: #### H EMDF, MG3, BMP3 ####The performing lab is in the report. CR Abdomen APon 08-13-2017 CR Abdomen AP Patient Name: JAMES REYES Diagnostic Radiology Exam Date/Time 08/13/2017 12:57:54 EDT Exam CR Abdomen AP Ordering Physician JARET BEEBE Accession Number [id number] CPT4 Codes 40539 () Reason For Exam right abdominal pain [...] Transcribed Date and Time: 08/13/2017 4:28 Normal [facility] CR Chest Portableon 08-14-19 18 CR Chest Portable Patient Name: JAMES REYES Diagnostic Radiology Exam Date/Time 08/13/2017 06:36:36 EDT Exam CR Chest Portable Ordering Physician STACEY CLEMONS Accession Number [id number] CPT4 Codes 89372 () Reason For Exam Post op open [...] Transcribed Date and Time: 08/13/2017 8:05 Normal [facility] Hemogramon 08-13-2017 Erythrocyte distribution width Auto Ratio (RBC) 14.9 % High 11.5-14.5 [facility] Comment on above: Performed By: #### H EMDF, MG3, BMP3 ####The performing lab is in the report. Hematocrit Auto Volume Fraction (Bld) 27.3 % Low 40.0-52.0 [facility] Comment on above: Performed By: #### H EMDF, MG3, BMP3 ####The performing lab is in the report. Hemoglobin mass conc (Bld) 8.9 g/dL Low 13.0-18.0 [facility] Comment on above: Performed By: #### H EMDF, MG3, BMP3 ####The performing lab is in the report. MCH Auto Entitic mass (RBC) 30.9 pg Normal 26.0-34.0 [facility] Comment on above: Performed By: #### H EMDF, MG3, BMP3 ####The performing lab is in the report. MCHC Auto mass conc (RBC) 32.5 % Normal 32.0-36.0 [facility] Comment on above: Performed By: #### H EMDF, MG3, BMP3 ####The performing lab is in the report. MCV Auto Entitic volume (RBC) 95.2 fL Normal 80.0-98.0 [facility] Comment on above: Performed By: #### H EMDF, MG3, BMP3 ####The performing lab is in the report. Platelet mean volume Auto Entitic volume (Bld) 8.9 fL Normal 7.4-10.4 [facility] Comment on above: Performed By: #### H EMDF, MG3, BMP3 ####The performing lab is in the report. Platelets Auto #/vol (Bld) 201 10*3/uL Normal 140-440 [facility] Comment on above: Performed By: #### H EMDF, MG3, BMP3 ####The performing lab is in the report. RBC Auto #/vol (Bld) 2.87 10*6/uL Low 4.40-5.90 [facility] Comment on above: Performed By: #### H EMDF, MG3, BMP3 ####The performing lab is in the report. WBC Auto #/vol (Bld) 5.9 10*3/uL Normal 3.6-10.7 [facility] Comment on above: Performed By: #### H EMDF, MG3, BMP3 ####The performing lab is in the report. Magnesiumon 08-13-2017 Magnesium mass conc 2.5 mg/dL High 1.6-2.3 [facility] Comment on above: Performed By: #### H EMDF, MG3, BMP3 ####The performing lab is in the report. Basic Metabolic Panelon 07-17 Calcium mass conc 8.1 mg/dL Low 8.4-10.2 [facility] Comment on above: Performed By: #### H EMDF, MG3, BMP3 ####The performing lab is in the report. Anion gap 3 molar conc 6 mmol/L Normal [facility] Comment on above: Performed By: #### H EMDF, MG3, BMP3 ####The performing lab is in the report. CO2 molar conc 24 mmol/L Normal 22-30 [facility] Comment on above: Performed By: #### H EMDF, MG3, BMP3 ####The performing lab is in the report. Creatinine mass conc 1.26 mg/dL High 0.52-1.25 [facility] Comment on above: Performed By: #### H EMDF, MG3, BMP3 ####The performing lab is in the report. GFR/1.73 sq M predicted among blacks MDRD vol rate/area (S/P/Bld) mL/min/{1.73_m2} Normal >60 [facility] Comment on above: Performed By: #### H EMDF, MG3, BMP3 ####The performing lab is in the report. GFR/1.73 sq M predicted among non-blacks MDRD vol rate/area (S/P/Bld) 58.2 mL/min/{1.73_m2} Normal >60 [facility] Comment on above: Result Comment: Sour ce- MDRD equation with creatinine calibration to IDMS(NKDEP)eGFR not recommended for drug dose adjustment Performed By: #### H EMDF, MG3, BMP3 ####The performing lab is in the report. Glucose mass conc 139 mg/dL High 70-100 [facility] Comment on above: Performed By: #### H EMDF, MG3, BMP3 ####The performing lab is in the report. Urea nitrogen mass conc 20 mg/dL Normal 7-20 [facility] Comment on above: Performed By: #### H EMDF, MG3, BMP3 ####The performing lab is in the report. Chloride molar conc 105 mmol/L Normal 98-107 [facility] Comment on above: Performed By: #### H EMDF, MG3, BMP3 ####The performing lab is in the report. Potassium molar conc 4.2 mmol/L Normal 3.5-5.1 [facility] Comment on above: Performed By: #### H EMDF, MG3, BMP3 ####The performing lab is in the report. Sodium molar conc 135 mmol/L Low 137-145 [facility] Comment on above: Performed By: #### H EMDF, MG3, BMP3 ####The performing lab is in the report. CR Chest Portableon 08-13-19 18 CR Chest Portable Patient Name: JAMES REYES Diagnostic Radiology Exam Date/Time 08/12/2017 13:18:29 EDT Exam CR Chest Portable Ordering Physician STACEY CLEMONS Accession Number [id number] CPT4 Codes 49335 () Reason For Exam Post op open heart surgery Report Examination: Portable chest Indication: Post op open heart surgery Comparison: Previous day Findings: There has been removal of the Safford-Ivelisse catheter. Median sternotomy changes are present. There [...] Transcribed Date and Time: 08/12/2017 1:24 Normal [facility] Glucose,Bedsideon 08-12-2017 Glucose mass conc 128 mg/dL High 70-100 [facility] Comment on above: Result Comment: Test performed by glucose meter. Results may be 10%-15% lowerthan serum/plasma values. (CLIA ID [id number]) Performed By: #### H EMDF, MG3, BMP3 ####The performing lab is in the report. Glucose mass conc 144 mg/dL High 70-100 [facility] Comment on above: Result Comment: Test performed by glucose meter. Results may be 10%-15% lowerthan serum/plasma values. (CLIA ID [id number]) Performed By: #### H EMDF, MG3, BMP3 ####The performing lab is in the report. Hemogram w/ Autodiffon 08-12 Abs Baso Cnt 0.0 10*3/uL Normal 0.0-0.2 [facility] Comment on above: Performed By: #### H EMDF, MG3, BMP3 ####The performing lab is in the report. Abs Neutrophile Cnt 7.6 10*3/uL High 1.8-7.0 [facility] [employer] Comment on above: Performed By: #### H EMDF, MG3, BMP3 ####The performing lab is in the report. Basophils/100 WBC Auto (Bld) 0.3 % Normal 0.0-2.0 [facility] Comment on above: Performed By: #### H EMDF, MG3, BMP3 ####The performing lab is in the report. Eosinophils Auto #/vol (Bld) 0.3 10*3/uL Normal 0.0-0.5 [facility] Comment on above: Performed By: #### H EMDF, MG3, BMP3 ####The performing lab is in the report. Eosinophils/100 WBC Auto (Bld) 2.9 % Normal 1.0-6.0 [facility] Comment on above: Performed By: #### H EMDF, MG3, BMP3 ####The performing lab is in the report. Erythrocyte distribution width Auto Ratio (RBC) 15.3 % High 11.5-14.5 [facility] Comment on above: Performed By: #### H EMDF, MG3, BMP3 ####The performing lab is in the report. Granulocytes/100 WBC (Bld) 82.7 % High 40.0-80.0 [facility] Comment on above: Performed By: #### H EMDF, MG3, BMP3 ####The performing lab is in the report. Hematocrit Auto Volume Fraction (Bld) 28.5 % Low 40.0-52.0 [facility] Comment on above: Performed By: #### H EMDF, MG3, BMP3 ####The performing lab is in the report. Hemoglobin mass conc (Bld) 9.4 g/dL Low 13.0-18.0 [facility] Comment on above: Performed By: #### H EMDF, MG3, BMP3 ####The performing lab is in the report. Lymphocytes Auto #/vol (Bld) 0.5 10*3/uL Low 1.0-4.3 [facility] Comment on above: Performed By: #### H EMDF, MG3, BMP3 ####The performing lab is in the report. Lymphocytes/100 WBC Auto (Bld) 5.2 % Low 20.0-40.0 [facility] Comment on above: Performed By: #### H EMDF, MG3, BMP3 ####The performing lab is in the report. MCH Auto Entitic mass (RBC) 31.4 pg Normal 26.0-34.0 [facility] Comment on above: Performed By: #### H EMDF, MG3, BMP3 ####The performing lab is in the report. MCHC Auto mass conc (RBC) 33.1 % Normal 32.0-36.0 [facility] Comment on above: Performed By: #### H EMDF, MG3, BMP3 ####The performing lab is in the report. MCV Auto Entitic volume (RBC) 94.7 fL Normal 80.0-98.0 [facility] Comment on above: Performed By: #### H EMDF, MG3, BMP3 ####The performing lab is in the report. Monocytes Auto #/vol (Bld) 0.8 10*3/uL Normal 0.0-0.8 [facility] Comment on above: Performed By: #### H EMDF, MG3, BMP3 ####The performing lab is in the report. Monocytes/100 WBC Auto (Bld) 8.9 % Normal 2.0-10.0 [facility] Comment on above: Performed By: #### H EMDF, MG3, BMP3 ####The performing lab is in the report. Platelet mean volume Auto Entitic volume (Bld) 9.1 fL Normal 7.4-10.4 [facility] Comment on above: Performed By: #### H EMDF, MG3, BMP3 ####The performing lab is in the report. Platelets Auto #/vol (Bld) 214 10*3/uL Normal 140-440 [facility] Comment on above: Performed By: #### H EMDF, MG3, BMP3 ####The performing lab is in the report. RBC Auto #/vol (Bld) 3.01 10*6/uL Low 4.40-5.90 [facility] Comment on above: Performed By: #### H EMDF, MG3, BMP3 ####The performing lab is in the report. WBC Auto #/vol (Bld) 9.2 10*3/uL Normal 3.6-10.7 [facility] Comment on above: Performed By: #### H EMDF, MG3, BMP3 ####The performing lab is in the report. Leukodepleted Red Cellson Leukodepleted Red Cells Leukodepleted Re d Cells: [id number] released 08/12/17 05:29 PKHUnit Blood Type: AUnit Blood Rh: POSBlood Product Code: [id number] Number: [id number] Status: released Barcoded Unit Number: [id number] d Product Code: = Normal [facility] Comment on above: Performed By: #### M G3, BMP3 ####The performing lab is in the report. Magnesiumon 08-12-2017 Magnesium mass conc 2.5 mg/dL High 1.6-2.3 [facility] Comment on above: Performed By: #### H EMDF, MG3, BMP3 ####The performing lab is in the report. Prothrombin Timeon 8 INR Coag RelTime (PPP) 1.1 {INR} Normal 0.9-1.1 [facility] Comment on above: Result Comment: Lux mmended [...] to preventMyocardial Infarction Performed By: #### H EMDF, MG3, BMP3 ####The performing lab is in the report. Prothrombin time (PT) Coag time (PPP) 11.7 s Normal 9.0-12.0 [facility] Comment on above: Result Comment: . Performed By: #### H EMDF, MG3, BMP3 ####The performing lab is in the report. Arterial Blood Gaseson 08-11 HCO3 molar conc (Bld) 24.6 mmol/L Normal 21.0-25.0 [facility] Comment on above: Performed By: #### A BG ####The performing lab is in the report. Hemoglobin mass conc (Bld) 11.1 g/dL Normal ScreenOnly [facility] Comment on above: Performed By: #### A BG ####The performing lab is in the report. Oxygen ppres (BldA) 103.3 mm[Hg] High 80.0-100.0 [facility] Comment on above: Performed By: #### A BG ####The performing lab is in the report. Oxygen saturation in Blood 97.5 % Normal 95.0-100.0 [facility] Comment on above: Performed By: #### A BG ####The performing lab is in the report. pCO2 47.1 mm[Hg] High 35.0-45.0 [facility] Comment on above: Performed By: #### A BG ####The performing lab is in the report. pH (Bld) 7.336 [pH] Low 7.350-7.450 [facility] Comment on above: Performed By: #### A BG ####The performing lab is in the report. Std Base Excess -1.4 mmol/L Normal -3.0-3.0 [facility] Comment on above: Performed By: #### A BG ####The performing lab is in the report. TCO2 26.1 mmol/L Normal 23.0-27.0 [facility] Comment on above: Performed By: #### A BG ####The performing lab is in the report. FIO2 No data Normal [facility] Comment on above: Performed By: #### A BG ####The performing lab is in the report. Basic Metabolic Panelon 04-2 Calcium mass conc 8.4 mg/dL Normal 8.4-10.2 [facility] Comment on above: Performed By: #### P T, HEMDF, MG3, BMP3 ####The performing lab is in the report. Anion gap 3 molar conc 8 mmol/L Normal [facility] Comment on above: Performed By: #### P T, HEMDF, MG3, BMP3 ####The performing lab is in the report. CO2 molar conc 26 mmol/L Normal 22-30 [facility] Comment on above: Performed By: #### P T, HEMDF, MG3, BMP3 ####The performing lab is in the report. Creatinine mass conc 0.89 mg/dL Normal 0.52-1.25 [facility] Comment on above: Performed By: #### P T, HEMDF, MG3, BMP3 ####The performing lab is in the report. GFR/1.73 sq M predicted among blacks MDRD vol rate/area (S/P/Bld) mL/min/{1.73_m2} Normal >60 [facility] Comment on above: Performed By: #### P T, HEMDF, MG3, BMP3 ####The performing lab is in the report. GFR/1.73 sq M predicted among non-blacks MDRD vol rate/area (S/P/Bld) mL/min/{1.73_m2} Normal >60 [facility] Comment on above: Result Comment: Sour ce- MDRD equation with creatinine calibration to IDMS(NKDEP)eGFR not recommended for drug dose adjustment Performed By: #### P T, HEMDF, MG3, BMP3 ####The performing lab is in the report. Glucose mass conc 80 mg/dL Normal 70-100 [facility] Comment on above: Performed By: #### P T, HEMDF, MG3, BMP3 ####The performing lab is in the report. Urea nitrogen mass conc 15 mg/dL Normal 7-20 [facility] Comment on above: Performed By: #### P T, HEMDF, MG3, BMP3 ####The performing lab is in the report. Chloride molar conc 111 mmol/L High 98-107 [facility] Comment on above: Performed By: #### P T, HEMDF, MG3, BMP3 ####The performing lab is in the report. Potassium molar conc 4.0 mmol/L Normal 3.5-5.1 [facility] Comment on above: Performed By: #### P T, HEMDF, MG3, BMP3 ####The performing lab is in the report. Sodium molar conc 144 mmol/L Normal 137-145 [facility] Comment on above: Performed By: #### P T, HEMDF, MG3, BMP3 ####The performing lab is in the report. CR Chest Portableon 08-12-19 18 CR Chest Portable Patient Name: JAMES REYES Diagnostic Radiology Exam Date/Time 08/11/2017 05:30:09 EDT Exam CR Chest Portable Ordering Physician STACEY CLEMONS Accession Number [id number] CPT4 Codes 01072 () Reason For Exam Post op open heart surgery Report Portable chest Clinical: Postop open-heart surgery COMPARISON: August 10, 2017 Heart size is stable. Median sternotomy changes. Mediastinal drainage catheter and left basilar chest tube remain in place. Endotracheal tube and feeding tube have been removed since the prior study. The right sided internal jugular distribution Safford-Ivelisse catheter remains, with the tip overlying the proximal right pulmonary artery distribution. Bibasilar atelectatic changes without sizable pleural effusion or pneumothorax. Osseous degenerative changes. Report Dictated on Final Dictated: 08/11/2017 7:55 am Dictating Physician: MAYO VELASQUEZ Signed Date and Time: 08/11/2017 7:56 am Signed by: MAYO VELASQUEZ Transcribed Date and Time: 08/11/2017 7:55 Normal [facility] Glucose,Bedsideon 08-11-2017 Glucose mass conc 134 mg/dL High 70-100 [facility] Comment on above: Result Comment: Test performed by glucose meter. Results may be 10%-15% lowerthan serum/plasma values. (CLIA ID [id number]) Performed By: #### B GLU ####The performing lab is in the report. Hemogram w/ Autodiffon 08-11 Abs Baso Cnt 0.0 10*3/uL Normal 0.0-0.2 [facility] Comment on above: Performed By: #### P T, HEMDF, MG3, BMP3 ####The performing lab is in the report. Abs Neutrophile Cnt 7.9 10*3/uL High 1.8-7.0 [facility] Comment on above: Performed By: #### P T, HEMDF, MG3, BMP3 ####The performing lab is in the report. Basophils/100 WBC Auto (Bld) 0.3 % Normal 0.0-2.0 [facility] Comment on above: Performed By: #### P T, HEMDF, MG3, BMP3 ####The performing lab is in the report. Eosinophils Auto #/vol (Bld) 0.0 10*3/uL Normal 0.0-0.5 [facility] Comment on above: Performed By: #### P T, HEMDF, MG3, BMP3 ####The performing lab is in the report. Eosinophils/100 WBC Auto (Bld) 0.1 % Low 1.0-6.0 [facility] Comment on above: Performed By: #### P T, HEMDF, MG3, BMP3 ####The performing lab is in the report. Erythrocyte distribution width Auto Ratio (RBC) 15.1 % High 11.5-14.5 [facility] Comment on above: Performed By: #### P T, HEMDF, MG3, BMP3 ####The performing lab is in the report. Granulocytes/100 WBC (Bld) 88.2 % High 40.0-80.0 [facility] Comment on above: Performed By: #### P T, HEMDF, MG3, BMP3 ####The performing lab is in the report. Hematocrit Auto Volume Fraction (Bld) 31.7 % Low 40.0-52.0 [facility] Comment on above: Performed By: #### P T, HEMDF, MG3, BMP3 ####The performing lab is in the report. Hemoglobin mass conc (Bld) 10.6 g/dL Low 13.0-18.0 [facility] Comment on above: Performed By: #### P T, HEMDF, MG3, BMP3 ####The performing lab is in the report. Lymphocytes Auto #/vol (Bld) 0.2 10*3/uL Low 1.0-4.3 [facility] Comment on above: Performed By: #### P T, HEMDF, MG3, BMP3 ####The performing lab is in the report. Lymphocytes/100 WBC Auto (Bld) 2.3 % Low 20.0-40.0 [facility] Comment on above: Performed By: #### P T, HEMDF, MG3, BMP3 ####The performing lab is in the report. MCH Auto Entitic mass (RBC) 31.5 pg Normal 26.0-34.0 [facility] Comment on above: Performed By: #### P T, HEMDF, MG3, BMP3 ####The performing lab is in the report. MCHC Auto mass conc (RBC) 33.4 % Normal 32.0-36.0 [facility] Comment on above: Performed By: #### P T, HEMDF, MG3, BMP3 ####The performing lab is in the report. MCV Auto Entitic volume (RBC) 94.2 fL Normal 80.0-98.0 [facility] Comment on above: Performed By: #### P T, HEMDF, MG3, BMP3 ####The performing lab is in the report. Monocytes Auto #/vol (Bld) 0.8 10*3/uL Normal 0.0-0.8 [facility] Comment on above: Performed By: #### P T, HEMDF, MG3, BMP3 ####The performing lab is in the report. Monocytes/100 WBC Auto (Bld) 9.1 % Normal 2.0-10.0 [facility] Comment on above: Performed By: #### P T, HEMDF, MG3, BMP3 ####The performing lab is in the report. Platelet mean volume Auto Entitic volume (Bld) 8.7 fL Normal 7.4-10.4 [facility] Comment on above: Performed By: #### P T, HEMDF, MG3, BMP3 ####The performing lab is in the report. Platelets Auto #/vol (Bld) 216 10*3/uL Normal 140-440 [facility] Comment on above: Performed By: #### P T, HEMDF, MG3, BMP3 ####The performing lab is in the report. RBC Auto #/vol (Bld) 3.37 10*6/uL Low 4.40-5.90 [facility] Comment on above: Performed By: #### P T, HEMDF, MG3, BMP3 ####The performing lab is in the report. WBC Auto #/vol (Bld) 8.9 10*3/uL Normal 3.6-10.7 [facility] Comment on above: Performed By: #### P T, HEMDF, MG3, BMP3 ####The performing lab is in the report. Magnesiumon 08-11-2017 Magnesium mass conc 3.0 mg/dL High 1.6-2.3 [facility] Comment on above: Performed By: #### P T, HEMDF, MG3, BMP3 ####The performing lab is in the report. Prothrombin Timeon 8 INR Coag RelTime (PPP) 1.0 {INR} Normal 0.9-1.1 [facility] Comment on above: Result Comment: Lux mmended [...] Coag time (PPP) 10.4 s Normal 9.0-12.0 [facility] Comment on above: Result Comment: . Performed By: #### P T, HEMDF, MG3, BMP3 ####The performing lab is in the report. APTTon 08-10-2017 aPTT Coag time (Bld) 25.0 s Normal 20.0-30.5 [facility] Comment on above: Result Comment: NOTE : The therapeutic time for Heparin anticoagulation,based on Xa activity inhibition, is an APTT of 46-80seconds. Performed By: #### A PTT ####The performing lab is in the report. Arterial Blood Gaseson 08-10 HCO3 molar conc (Bld) 24.1 mmol/L Normal 21.0-25.0 [facility] Comment on above: Performed By: #### A BG ####The performing lab is in the report. Hemoglobin mass conc (Bld) 11.2 g/dL Normal Screenly [facility] Comment on above: Performed By: #### A BG ####The performing lab is in the report. Oxygen ppres (BldA) 85.1 mm[Hg] Normal 80.0-100.0 [facility] Comment on above: Performed By: #### A BG ####The performing lab is in the report. Oxygen saturation in Blood 95.5 % Normal 95.0-100.0 [facility] Comment on above: Performed By: #### A BG ####The performing lab is in the report. pCO2 46.4 mm[Hg] High 35.0-45.0 [facility] Comment on above: Performed By: #### A BG ####The performing lab is in the report. pH (Bld) 7.333 [pH] Low 7.350-7.450 [facility] Comment on above: Performed By: #### A BG ####The performing lab is in the report. Std Base Excess -1.9 mmol/L Normal -3.0-3.0 [facility] Comment on above: Performed By: #### A BG ####The performing lab is in the report. FIO2 No data Normal [facility] Comment on above: Performed By: #### A BG ####The performing lab is in the report. HCO3 molar conc (Bld) 24.2 mmol/L Normal 21.0-25.0 [facility] Comment on above: Performed By: #### M G3, BMP3 ####The performing lab is in the report. Hemoglobin mass conc (Bld) 11.4 g/dL Normal ScreenOnly [facility] Comment on above: Performed By: #### M G3, BMP3 ####The performing lab is in the report. Oxygen ppres (BldA) 147.0 mm[Hg] High 80.0-100.0 [facility] Comment on above: Performed By: #### M G3, BMP3 ####The performing lab is in the report. Oxygen saturation in Blood 98.8 % Normal 95.0-100.0 [facility] Comment on above: Performed By: #### M G3, BMP3 ####The performing lab is in the report. pCO2 42.3 mm[Hg] Normal 35.0-45.0 [facility] Comment on above: Performed By: #### M G3, BMP3 ####The performing lab is in the report. pH (Bld) 7.376 [pH] Normal 7.350-7.450 [facility] Comment on above: Performed By: #### M G3, BMP3 ####The performing lab is in the report. Std Base Excess -1.0 mmol/L Normal -3.0-3.0 [facility] Comment on above: Performed By: #### M G3, BMP3 ####The performing lab is in the report. TCO2 25.5 mmol/L Normal 23.0-27.0 [facility] Comment on above: Performed By: #### A BG ####The performing lab is in the report. Performed By: #### M G3, BMP3 ####The performing lab is in the report. FIO2 No data Normal [facility] Comment on above: Performed By: #### M G3, BMP3 ####The performing lab is in the report. Basic Metabolic Panelon 04-2 Anion gap 3 molar conc 9 mmol/L Normal [facility] Comment on above: Performed By: #### I CA, HEMOG, PT, FIBGN, MG3, BMP3, PHOS3 ####The performing lab is in the report. Calcium mass conc 8.5 mg/dL Normal 8.4-10.2 [facility] Comment on above: Performed By: #### I CA, HEMOG, PT, FIBGN, MG3, BMP3, PHOS3 ####The performing lab is in the report. CO2 molar conc 25 mmol/L Normal 22-30 [facility] Comment on above: Performed By: #### I CA, HEMOG, PT, FIBGN, MG3, BMP3, PHOS3 ####The performing lab is in the report. Glucose mass conc 111 mg/dL High 70-100 [facility] Comment on above: Performed By: #### I CA, HEMOG, PT, FIBGN, MG3, BMP3, PHOS3 ####The performing lab is in the report. Urea nitrogen mass conc 17 mg/dL Normal 7-20 [facility] Comment on above: Performed By: #### I CA, HEMOG, PT, FIBGN, MG3, BMP3, PHOS3 ####The performing lab is in the report. Creatinine mass conc 0.93 mg/dL Normal 0.52-1.25 [facility] Comment on above: Performed By: #### I CA, HEMOG, PT, FIBGN, MG3, BMP3, PHOS3 ####The performing lab is in the report. GFR/1.73 sq M predicted among blacks MDRD vol rate/area (S/P/Bld) mL/min/{1.73_m2} Normal >60 [facility] Comment on above: Performed By: #### I CA, HEMOG, PT, FIBGN, MG3, BMP3, PHOS3 ####The performing lab is in the report. GFR/1.73 sq M predicted among non-blacks MDRD vol rate/area (S/P/Bld) mL/min/{1.73_m2} Normal >60 [facility] Comment on above: Result Comment: Sour ce- MDRD equation with creatinine calibration to IDMS(NKDEP)eGFR not recommended for drug dose adjustment Performed By: #### I CA, HEMOG, PT, FIBGN, MG3, BMP3, PHOS3 ####The performing lab is in the report. Potassium molar conc 4.2 mmol/L Normal 3.5-5.1 [facility] Comment on above: Performed By: #### I CA, HEMOG, PT, FIBGN, MG3, BMP3, PHOS3 ####The performing lab is in the report. Sodium molar conc 145 mmol/L Normal 137-145 [facility] Comment on above: Performed By: #### I CA, HEMOG, PT, FIBGN, MG3, BMP3, PHOS3 ####The performing lab is in the report. Chloride molar conc 111 mmol/L High 98-107 [facility] Comment on above: Performed By: #### I CA, HEMOG, PT, FIBGN, MG3, BMP3, PHOS3 ####The performing lab is in the report. Calcium mass conc 8.2 mg/dL Low 8.4-10.2 [facility] Comment on above: Performed By: #### M G3, BMP3 ####The performing lab is in the report. Anion gap 3 molar conc 5 mmol/L Normal [facility] Comment on above: Performed By: #### M G3, BMP3 ####The performing lab is in the report. CO2 molar conc 27 mmol/L Normal 22-30 [facility] Comment on above: Performed By: #### M G3, BMP3 ####The performing lab is in the report. Creatinine mass conc 0.93 mg/dL Normal 0.52-1.25 [facility] Comment on above: Performed By: #### M G3, BMP3 ####The performing lab is in the report. GFR/1.73 sq M predicted among blacks MDRD vol rate/area (S/P/Bld) mL/min/{1.73_m2} Normal >60 [facility] Comment on above: Performed By: #### M G3, BMP3 ####The performing lab is in the report. GFR/1.73 sq M predicted among non-blacks MDRD vol rate/area (S/P/Bld) mL/min/{1.73_m2} Normal >60 [facility] Comment on above: Result Comment: Sour ce- MDRD equation with creatinine calibration to IDMS(NKDEP)eGFR not recommended for drug dose adjustment Performed By: #### M G3, BMP3 ####The performing lab is in the report. Glucose mass conc 123 mg/dL High 70-100 [facility] Comment on above: Performed By: #### M G3, BMP3 ####The performing lab is in the report. Urea nitrogen mass conc 15 mg/dL Normal 7-20 [facility] Comment on above: Performed By: #### M G3, BMP3 ####The performing lab is in the report. Chloride molar conc 111 mmol/L High 98-107 [facility] Comment on above: Performed By: #### M G3, BMP3 ####The performing lab is in the report. Potassium molar conc 3.7 mmol/L Normal 3.5-5.1 [facility] Comment on above: Performed By: #### M G3, BMP3 ####The performing lab is in the report. Sodium molar conc 143 mmol/L Normal 137-145 [facility] Comment on above: Performed By: #### M G3, BMP3 ####The performing lab is in the report. Anion gap 3 molar conc 9 mmol/L Normal [facility] Comment on above: Performed By: #### M G3, BMP3 ####The performing lab is in the report. Calcium mass conc 9.3 mg/dL Normal 8.4-10.2 [facility] Comment on above: Performed By: #### M G3, BMP3 ####The performing lab is in the report. CO2 molar conc 27 mmol/L Normal 22-30 [facility] Comment on above: Performed By: #### M G3, BMP3 ####The performing lab is in the report. Glucose mass conc 161 mg/dL High 70-100 [facility] Comment on above: Performed By: #### M G3, BMP3 ####The performing lab is in the report. Urea nitrogen mass conc 18 mg/dL Normal 7-20 [facility] Comment on above: Performed By: #### M G3, BMP3 ####The performing lab is in the report. Creatinine mass conc 0.88 mg/dL Normal 0.52-1.25 [facility] Comment on above: Performed By: #### M G3, BMP3 ####The performing lab is in the report. GFR/1.73 sq M predicted among blacks MDRD vol rate/area (S/P/Bld) mL/min/{1.73_m2} Normal >60 [facility] Comment on above: Performed By: #### M G3, BMP3 ####The performing lab is in the report. GFR/1.73 sq M predicted among non-blacks MDRD vol rate/area (S/P/Bld) mL/min/{1.73_m2} Normal >60 [facility] Comment on above: Result Comment: Sour ce- MDRD equation with creatinine calibration to IDMS(NKDEP)eGFR not recommended for drug dose adjustment Performed By: #### M G3, BMP3 ####The performing lab is in the report. Potassium molar conc 4.2 mmol/L Normal 3.5-5.1 [facility] Comment on above: Performed By: #### M G3, BMP3 ####The performing lab is in the report. Sodium molar conc 143 mmol/L Normal 137-145 [facility] Comment on above: Performed By: #### M G3, BMP3 ####The performing lab is in the report. Chloride molar conc 107 mmol/L Normal 98-107 [facility] Comment on above: Performed By: #### M G3, BMP3 ####The performing lab is in the report. CR Chest Portableon 08-11-19 CR Chest Portable Patient Name: JAMES REYES Diagnostic Radiology Exam Date/Time 08/10/2017 14:26:03 EDT Exam CR Chest Portable Ordering Physician STACEY CLEMONS Accession Number [id number] CPT4 Codes 71692 () Reason For Exam Post op open heart surgery Report CLINICAL INFORMATION: Open heart surgery. Intubation. Portable view of the chest at 1345 hours is provided and compared to a previous study dated August 06, 2017. FINDINGS: An endotracheal tube is now seen with its tip approximately 5 cm above the greg. An enteric tube extends into the stomach. A Safford-Ivelisse catheter is in place via the right [...] Transcribed Date and Time: 08/10/2017 3:36 Normal [facility] CULTURE STAPH AUREUSon 08-10 CULTURE STAPH AUREUS CULTURE STAPH AUREU S --> Status: F No Staphylococcus aureus isolated. Normal [facility] Comment on above: Performed By: #### H EMDF, MG3, BMP3 ####The performing lab is in the report. Calcium,Ionizedon 08-10-2017 Ionized Ca,Measured 4.10 mg/dL Low 4.30-5.20 [facility] Comment on above: Performed By: #### M G3, BMP3 ####The performing lab is in the report. pH, Ionized Calcium 7.37 Normal 7.31-7.46 [facility] Comment on above: Performed By: #### M G3, BMP3 ####The performing lab is in the report. pH, Ionized Calcium 7.40 Normal 7.31-7.46 [facility] Comment on above: Performed By: #### M G3, BMP3 ####The performing lab is in the report. Ionized Ca,Measured 4.50 mg/dL Normal 4.30-5.20 [facility] Comment on above: Performed By: #### M G3, BMP3 ####The performing lab is in the report. Fibrinogenon 08-10-2017 Fibrinogen 359 mg/dL Normal 200-400 [facility] Comment on above: Performed By: #### M G3, BMP3 ####The performing lab is in the report. Hemogramon 08-10-2017 Erythrocyte distribution width Auto Ratio (RBC) 14.7 % High 11.5-14.5 [facility] Comment on above: Performed By: #### M G3, BMP3 ####The performing lab is in the report. Hematocrit Auto Volume Fraction (Bld) 32.7 % Low 40.0-52.0 [facility] Comment on above: Performed By: #### Ap G3, BMP3 ####The performing lab is in the report. Hemoglobin mass conc (Bld) 10.7 g/dL Low 13.0-18.0 [facility] Comment on above: Performed By: #### M G3, BMP3 ####The performing lab is in the report. MCH Auto Entitic mass (RBC) 31.1 pg Normal 26.0-34.0 [facility] Comment on above: Performed By: #### Ap G3, BMP3 ####The performing lab is in the report. MCHC Auto mass conc (RBC) 32.8 % Normal 32.0-36.0 [facility] Comment on above: Performed By: #### Ap G3, BMP3 ####The performing lab is in the report. MCV Auto Entitic volume (RBC) 94.7 fL Normal 80.0-98.0 [facility] Comment on above: Performed By: #### Ap G3, BMP3 ####The performing lab is in the report. Platelet mean volume Auto Entitic volume (Bld) 8.5 fL Normal 7.4-10.4 [facility] Comment on above: Performed By: #### Ap G3, BMP3 ####The performing lab is in the report. Platelets Auto #/vol (Bld) 224 10*3/uL Normal 140-440 [facility] Comment on above: Performed By: #### M G3, BMP3 ####The performing lab is in the report. RBC Auto #/vol (Bld) 3.45 10*6/uL Low 4.40-5.90 [facility] Comment on above: Performed By: #### M G3, BMP3 ####The performing lab is in the report. WBC Auto #/vol (Bld) 9.7 10*3/uL Normal 3.6-10.7 [facility] Comment on above: Performed By: #### M G3, BMP3 ####The performing lab is in the report. Erythrocyte distribution width Auto Ratio (RBC) 15.0 % High 11.5-14.5 [facility] Comment on above: Performed By: #### M G3, BMP3 ####The performing lab is in the report. Hematocrit Auto Volume Fraction (Bld) 32.9 % Low 40.0-52.0 [facility] Comment on above: Performed By: #### Ap G3, BMP3 ####The performing lab is in the report. Hemoglobin mass conc (Bld) 10.9 g/dL Low 13.0-18.0 [facility] Comment on above: Performed By: #### Ap G3, BMP3 ####The performing lab is in the report. MCH Auto Entitic mass (RBC) 31.2 pg Normal 26.0-34.0 [facility] Comment on above: Performed By: #### Ap G3, BMP3 ####The performing lab is in the report. MCHC Auto mass conc (RBC) 33.0 % Normal 32.0-36.0 [facility] Comment on above: Performed By: #### Ap G3, BMP3 ####The performing lab is in the report. MCV Auto Entitic volume (RBC) 94.3 fL Normal 80.0-98.0 [facility] Comment on above: Performed By: #### Ap G3, BMP3 ####The performing lab is in the report. Platelet mean volume Auto Entitic volume (Bld) 8.5 fL Normal 7.4-10.4 [facility] Comment on above: Performed By: #### Ap G3, BMP3 ####The performing lab is in the report. Platelets Auto #/vol (Bld) 199 10*3/uL Normal 140-440 [facility] Comment on above: Performed By: #### Ap G3, BMP3 ####The performing lab is in the report. RBC Auto #/vol (Bld) 3.49 10*6/uL Low 4.40-5.90 [facility] Comment on above: Performed By: #### Ap G3, BMP3 ####The performing lab is in the report. WBC Auto #/vol (Bld) 9.8 10*3/uL Normal 3.6-10.7 [facility] Comment on above: Performed By: #### Ap G3, BMP3 ####The performing lab is in the report. Hemogram w/ Autodiffon 04-26 -2018 Abs Baso Cnt 0.1 10*3/uL Normal 0.0-0.2 [facility] Comment on above: Performed By: #### Ap G3, BMP3 ####The performing lab is in the report. Abs Neutrophile Cnt 2.5 10*3/uL Normal 1.8-7.0 [facility] Comment on above: Performed By: #### M G3, BMP3 ####The performing lab is in the report. Basophils/100 WBC Auto (Bld) 1.2 % Normal 0.0-2.0 [facility] Comment on above: Performed By: #### Ap G3, BMP3 ####The performing lab is in the report. Eosinophils Auto #/vol (Bld) 0.2 10*3/uL Normal 0.0-0.5 [facility] Comment on above: Performed By: #### Ap G3, BMP3 ####The performing lab is in the report. Eosinophils/100 WBC Auto (Bld) 3.8 % Normal 1.0-6.0 [facility] Comment on above: Performed By: #### Ap G3, BMP3 ####The performing lab is in the report. Erythrocyte distribution width Auto Ratio (RBC) 14.8 % High 11.5-14.5 [facility] Comment on above: Performed By: #### Ap G3, BMP3 ####The performing lab is in the report. Granulocytes/100 WBC (Bld) 56.4 % Normal 40.0-80.0 [facility] Comment on above: Performed By: #### Ap G3, BMP3 ####The performing lab is in the report. Hematocrit Auto Volume Fraction (Bld) 38.4 % Low 40.0-52.0 [facility] Comment on above: Performed By: #### Ap G3, BMP3 ####The performing lab is in the report. Hemoglobin mass conc (Bld) 12.5 g/dL Low 13.0-18.0 [facility] Comment on above: Performed By: #### M G3, BMP3 ####The performing lab is in the report. Lymphocytes Auto #/vol (Bld) 1.3 10*3/uL Normal 1.0-4.3 [facility] Comment on above: Performed By: #### Ap G3, BMP3 ####The performing lab is in the report. Lymphocytes/100 WBC Auto (Bld) 29.9 % Normal 20.0-40.0 [facility] Comment on above: Performed By: #### Ap G3, BMP3 ####The performing lab is in the report. MCH Auto Entitic mass (RBC) 31.0 pg Normal 26.0-34.0 [facility] Comment on above: Performed By: #### Ap G3, BMP3 ####The performing lab is in the report. MCHC Auto mass conc (RBC) 32.7 % Normal 32.0-36.0 [facility] Comment on above: Performed By: #### Ap G3, BMP3 ####The performing lab is in the report. MCV Auto Entitic volume (RBC) 94.7 fL Normal 80.0-98.0 [facility] Comment on above: Performed By: #### Ap G3, BMP3 ####The performing lab is in the report. Monocytes Auto #/vol (Bld) 0.4 10*3/uL Normal 0.0-0.8 [facility] Comment on above: Performed By: #### Ap G3, BMP3 ####The performing lab is in the report. Monocytes/100 WBC Auto (Bld) 8.7 % Normal 2.0-10.0 [facility] Comment on above: Performed By: #### Ap G3, BMP3 ####The performing lab is in the report. Platelet mean volume Auto Entitic volume (Bld) 8.7 fL Normal 7.4-10.4 [facility] Comment on above: Performed By: #### Ap G3, BMP3 ####The performing lab is in the report. Platelets Auto #/vol (Bld) 281 10*3/uL Normal 140-440 [facility] Comment on above: Performed By: #### Ap G3, BMP3 ####The performing lab is in the report. RBC Auto #/vol (Bld) 4.05 10*6/uL Low 4.40-5.90 [facility] Comment on above: Performed By: #### M G3, BMP3 ####The performing lab is in the report. WBC Auto #/vol (Bld) 4.4 10*3/uL Normal 3.6-10.7 [facility] Comment on above: Performed By: #### M G3, BMP3 ####The performing lab is in the report. Magnesiumon 08-10-2017 Magnesium mass conc 3.2 mg/dL High 1.6-2.3 [facility] Comment on above: Performed By: #### M G3, BMP3 ####The performing lab is in the report. Magnesium mass conc 3.0 mg/dL High 1.6-2.3 [facility] Comment on above: Performed By: #### M G3, BMP3 ####The performing lab is in the report. Magnesium mass conc 2.1 mg/dL Normal 1.6-2.3 [facility] Comment on above: Performed By: #### M G3, BMP3 ####The performing lab is in the report. PF Full PFT Studyon 08-11-19 18 PF Full PFT Study Patient Name: JAMES REYES Pulmonary Function Exam Date/Time 08/09/2017 15:19:54 EDT Exam PF Full PFT Study Ordering Physician STACEY CLEMONS Accession Number [id number] Reason For Exam Chest pain Report Diffusion [...] Transcribed Date and Time: 08/10/2017 4:40 Normal [facility] Phosphoruson 08-10-2017 Phosphate mass conc 2.9 mg/dL Normal 2.5-4.5 [facility] Comment on above: Performed By: #### I CA, HEMOG, PT, FIBGN, MG3, BMP3, PHOS3 ####The performing lab is in the report. Phosphate mass conc 2.6 mg/dL Normal 2.5-4.5 [facility] Comment on above: Performed By: #### M G3, BMP3 ####The performing lab is in the report. Prothrombin Timeon 8 INR Coag RelTime (PPP) 1.0 {INR} Normal 0.9-1.1 [facility] Comment on above: Result Comment: Lux mmended [...] Coag time (PPP) 10.7 s Normal 9.0-12.0 [facility] Comment on above: Result Comment: . Performed By: #### M G3, BMP3 ####The performing lab is in the report. Protimeon 08-10-2017 INR Coag RelTime (PPP) 1.1 {INR} Normal 0.9-1.1 [facility] Comment on above: Result Comment: Ulx mmended Anticoagulant Therapy:SEE BELOW----- INR of 2.0 [...] Coag time (PPP) 11.8 s Normal 9.0-12.0 [facility] Comment on above: Result Comment: . Performed By: #### M G3, BMP3 ####The performing lab is in the report. aPTT Coag time (Bld) 24.1 s Normal 20.0-30.5 [facility] Comment on above: Result Comment: NOTE : The therapeutic time for Heparin anticoagulation,based on Xa activity inhibition, is an APTT of 46-80seconds. Performed By: #### M G3, BMP3 ####The performing lab is in the report. APTTon 08-09-2017 aPTT Coag time (Bld) 26.4 s Normal 20.0-30.5 [facility] Comment on above: Result Comment: NOTE : The therapeutic time for Heparin anticoagulation,based on Xa activity inhibition, is an APTT of 46-80seconds. Performed By: #### H EMDF, APTT, HA1C2 ####The performing lab is in the report. Basic Metabolic Panelon 07-17 Anion gap 3 molar conc 6 mmol/L Normal [facility] Comment on above: Performed By: #### H EMDF, MG3, BMP3 ####The performing lab is in the report. Calcium mass conc 9.1 mg/dL Normal 8.4-10.2 [facility] Comment on above: Performed By: #### H EMDF, MG3, BMP3 ####The performing lab is in the report. CO2 molar conc 29 mmol/L Normal 22-30 [facility] Comment on above: Performed By: #### H EMDF, MG3, BMP3 ####The performing lab is in the report. Glucose mass conc 138 mg/dL High 70-100 [facility] Comment on above: Performed By: #### H EMDF, MG3, BMP3 ####The performing lab is in the report. Urea nitrogen mass conc 15 mg/dL Normal 7-20 [facility] Comment on above: Performed By: #### H EMDF, MG3, BMP3 ####The performing lab is in the report. Creatinine mass conc 0.86 mg/dL Normal 0.52-1.25 [facility] Comment on above: Performed By: #### H EMDF, MG3, BMP3 ####The performing lab is in the report. GFR/1.73 sq M predicted among blacks MDRD vol rate/area (S/P/Bld) mL/min/{1.73_m2} Normal >60 [facility] Comment on above: Performed By: #### H EMDF, MG3, BMP3 ####The performing lab is in the report. GFR/1.73 sq M predicted among non-blacks MDRD vol rate/area (S/P/Bld) mL/min/{1.73_m2} Normal >60 [facility] Comment on above: Result Comment: Sour ce- MDRD equation with creatinine calibration to IDMS(NKDEP)eGFR not recommended for drug dose adjustment Performed By: #### H EMDF, MG3, BMP3 ####The performing lab is in the report. Chloride molar conc 107 mmol/L Normal 98-107 [facility] Comment on above: Performed By: #### H EMDF, MG3, BMP3 ####The performing lab is in the report. Potassium molar conc 4.2 mmol/L Normal 3.5-5.1 [facility] Comment on above: Performed By: #### H EMDF, MG3, BMP3 ####The performing lab is in the report. Sodium molar conc 142 mmol/L Normal 137-145 [facility] Comment on above: Performed By: #### H EMDF, MG3, BMP3 ####The performing lab is in the report. Hemoglobin A1Con 08-09-2017 Glucose mass conc 148 mg/dL Normal [facility] Comment on above: Performed By: #### H EMDF, APTT, HA1C2 ####The performing lab is in the report. Hemoglobin A1c/Hemoglobin.total mass fraction (Bld) 6.8 % High 4.0-5.7 [facility] Comment on above: Result Comment: --Hg bA1C levels may not be accurate in patients who haverenal disease, received recent blood transfusions, are anemic,or who have dyshemoglobinemia. Performed By: #### H EMDF, APTT, HA1C2 ####The performing lab is in the report. Hemogram w/ Autodiffon 08-09 Abs Baso Cnt 0.1 10*3/uL Normal 0.0-0.2 [facility] Comment on above: Performed By: #### H EMDF, APTT, HA1C2 ####The performing lab is in the report. Abs Neutrophile Cnt 3.3 10*3/uL Normal 1.8-7.0 [facility] Comment on above: Performed By: #### H EMDF, APTT, HA1C2 ####The performing lab is in the report. Basophils/100 WBC Auto (Bld) 1.9 % Normal 0.0-2.0 [facility] Comment on above: Performed By: #### H EMDF, APTT, HA1C2 ####The performing lab is in the report. Eosinophils Auto #/vol (Bld) 0.1 10*3/uL Normal 0.0-0.5 [facility] Comment on above: Performed By: #### H EMDF, APTT, HA1C2 ####The performing lab is in the report. Eosinophils/100 WBC Auto (Bld) 2.1 % Normal 1.0-6.0 [facility] Comment on above: Performed By: #### H EMDF, APTT, HA1C2 ####The performing lab is in the report. Erythrocyte distribution width Auto Ratio (RBC) 14.6 % High 11.5-14.5 [facility] Comment on above: Performed By: #### H EMDF, APTT, HA1C2 ####The performing lab is in the report. Granulocytes/100 WBC (Bld) 69.9 % Normal 40.0-80.0 [facility] Comment on above: Performed By: #### H EMDF, APTT, HA1C2 ####The performing lab is in the report. Hematocrit Auto Volume Fraction (Bld) 38.9 % Low 40.0-52.0 [facility] Comment on above: Performed By: #### H EMDF, APTT, HA1C2 ####The performing lab is in the report. Hemoglobin mass conc (Bld) 12.6 g/dL Low 13.0-18.0 [facility] Comment on above: Performed By: #### H EMDF, APTT, HA1C2 ####The performing lab is in the report. Lymphocytes Auto #/vol (Bld) 0.8 10*3/uL Low 1.0-4.3 [facility] Comment on above: Performed By: #### H EMDF, APTT, HA1C2 ####The performing lab is in the report. Lymphocytes/100 WBC Auto (Bld) 17.7 % Low 20.0-40.0 [facility] Comment on above: Performed By: #### H EMDF, APTT, HA1C2 ####The performing lab is in the report. MCH Auto Entitic mass (RBC) 30.6 pg Normal 26.0-34.0 [facility] Comment on above: Performed By: #### H EMDF, APTT, HA1C2 ####The performing lab is in the report. MCHC Auto mass conc (RBC) 32.5 % Normal 32.0-36.0 [facility] Comment on above: Performed By: #### H EMDF, APTT, HA1C2 ####The performing lab is in the report. MCV Auto Entitic volume (RBC) 94.0 fL Normal 80.0-98.0 [facility] Comment on above: Performed By: #### H EMDF, APTT, HA1C2 ####The performing lab is in the report. Monocytes Auto #/vol (Bld) 0.4 10*3/uL Normal 0.0-0.8 [facility] Comment on above: Performed By: #### H EMDF, APTT, HA1C2 ####The performing lab is in the report. Monocytes/100 WBC Auto (Bld) 8.4 % Normal 2.0-10.0 [facility] Comment on above: Performed By: #### H EMDF, APTT, HA1C2 ####The performing lab is in the report. Platelet mean volume Auto Entitic volume (Bld) 8.9 fL Normal 7.4-10.4 [facility] Comment on above: Performed By: #### H EMDF, APTT, HA1C2 ####The performing lab is in the report. Platelets Auto #/vol (Bld) 280 10*3/uL Normal 140-440 [facility] Comment on above: Performed By: #### H EMDF, APTT, HA1C2 ####The performing lab is in the report. RBC Auto #/vol (Bld) 4.14 10*6/uL Low 4.40-5.90 [facility] Comment on above: Performed By: #### H EMDF, APTT, HA1C2 ####The performing lab is in the report. WBC Auto #/vol (Bld) 4.7 10*3/uL Normal 3.6-10.7 [facility] Comment on above: Performed By: #### H EMDF, APTT, HA1C2 ####The performing lab is in the report. Abs Baso Cnt 0.1 10*3/uL Normal 0.0-0.2 [facility] Comment on above: Performed By: #### H EMDF, MG3, BMP3 ####The performing lab is in the report. Abs Neutrophile Cnt 3.0 10*3/uL Normal 1.8-7.0 [facility] Comment on above: Performed By: #### H EMDF, MG3, BMP3 ####The performing lab is in the report. Basophils/100 WBC Auto (Bld) 1.1 % Normal 0.0-2.0 [facility] Comment on above: Performed By: #### H EMDF, MG3, BMP3 ####The performing lab is in the report. Eosinophils Auto #/vol (Bld) 0.1 10*3/uL Normal 0.0-0.5 [facility] Comment on above: Performed By: #### H EMDF, MG3, BMP3 ####The performing lab is in the report. Eosinophils/100 WBC Auto (Bld) 2.8 % Normal 1.0-6.0 [facility] Comment on above: Performed By: #### H EMDF, MG3, BMP3 ####The performing lab is in the report. Erythrocyte distribution width Auto Ratio (RBC) 14.9 % High 11.5-14.5 [facility] Comment on above: Performed By: #### H EMDF, MG3, BMP3 ####The performing lab is in the report. Granulocytes/100 WBC (Bld) 62.0 % Normal 40.0-80.0 [facility] Comment on above: Performed By: #### H EMDF, MG3, BMP3 ####The performing lab is in the report. Hematocrit Auto Volume Fraction (Bld) 40.1 % Normal 40.0-52.0 [facility] Comment on above: Performed By: #### H EMDF, MG3, BMP3 ####The performing lab is in the report. Hemoglobin mass conc (Bld) 13.2 g/dL Normal 13.0-18.0 [facility] Comment on above: Performed By: #### H EMDF, MG3, BMP3 ####The performing lab is in the report. Lymphocytes Auto #/vol (Bld) 1.2 10*3/uL Normal 1.0-4.3 [facility] Comment on above: Performed By: #### H EMDF, MG3, BMP3 ####The performing lab is in the report. Lymphocytes/100 WBC Auto (Bld) 25.8 % Normal 20.0-40.0 [facility] Comment on above: Performed By: #### H EMDF, MG3, BMP3 ####The performing lab is in the report. MCH Auto Entitic mass (RBC) 30.8 pg Normal 26.0-34.0 [facility] Comment on above: Performed By: #### H EMDF, MG3, BMP3 ####The performing lab is in the report. MCHC Auto mass conc (RBC) 32.8 % Normal 32.0-36.0 [facility] Comment on above: Performed By: #### H EMDF, MG3, BMP3 ####The performing lab is in the report. MCV Auto Entitic volume (RBC) 94.0 fL Normal 80.0-98.0 [facility] Comment on above: Performed By: #### H EMDF, MG3, BMP3 ####The performing lab is in the report. Monocytes Auto #/vol (Bld) 0.4 10*3/uL Normal 0.0-0.8 [facility] Comment on above: Performed By: #### H EMDF, MG3, BMP3 ####The performing lab is in the report. Monocytes/100 WBC Auto (Bld) 8.3 % Normal 2.0-10.0 [facility] Comment on above: Performed By: #### H EMDF, MG3, BMP3 ####The performing lab is in the report. Platelet mean volume Auto Entitic volume (Bld) 8.7 fL Normal 7.4-10.4 [facility] Comment on above: Performed By: #### H EMDF, MG3, BMP3 ####The performing lab is in the report. Platelets Auto #/vol (Bld) 274 10*3/uL Normal 140-440 [facility] Comment on above: Performed By: #### H EMDF, MG3, BMP3 ####The performing lab is in the report. RBC Auto #/vol (Bld) 4.27 10*6/uL Low 4.40-5.90 [facility] Comment on above: Performed By: #### H EMDF, MG3, BMP3 ####The performing lab is in the report. WBC Auto #/vol (Bld) 4.8 10*3/uL Normal 3.6-10.7 [facility] Comment on above: Performed By: #### H EMDF, MG3, BMP3 ####The performing lab is in the report. Magnesiumon 08-09-2017 Magnesium mass conc 2.0 mg/dL Normal 1.6-2.3 [facility] Comment on above: Performed By: #### H EMDF, MG3, BMP3 ####The performing lab is in the report. TS GELon 08-09-2017 TS GEL ABO Group: A Rh, Gel: POS Antibody Screen Gel: NEG Normal [facility] Comment on above: Performed By: #### M G3, BMP3 ####The performing lab is in the report. Urinalysis,Macroon 8 Appearance clear Normal Clear [facility] Comment on above: Performed By: #### M G3, BMP3 ####The performing lab is in the report. Bilirubin,Ur Negative Normal Negative [facility] Comment on above: Performed By: #### M G3, BMP3 ####The performing lab is in the report. Color yellow Normal Lt. Yellow [facility] Comment on above: Performed By: #### M G3, BMP3 ####The performing lab is in the report. Glucose Ql (U) NORM Normal Negative [facility] Comment on above: Performed By: #### M G3, BMP3 ####The performing lab is in the report. Ketone,Urine Negative Normal Negative [facility] Comment on above: Performed By: #### M G3, BMP3 ####The performing lab is in the report. Leukocytes Negative Normal Negative [facility] Comment on above: Performed By: #### M G3, BMP3 ####The performing lab is in the report. Nitrites Negative Normal Negative [facility] Comment on above: Performed By: #### M G3, BMP3 ####The performing lab is in the report. Occult Blood,Ur Negative Normal Negative [facility] Comment on above: Performed By: #### M G3, BMP3 ####The performing lab is in the report. pH Test strip (U) 7.0 [pH] Normal 5.0-8.0 [facility] Comment on above: Performed By: #### M G3, BMP3 ####The performing lab is in the report. Specific Burr,Urine 1.005 Normal 1.005-1.030 [facility] Comment on above: Performed By: #### M G3, BMP3 ####The performing lab is in the report. Total Protein,Urine Negative Normal Negative [facility] Comment on above: Performed By: #### M G3, BMP3 ####The performing lab is in the report. Urobilinogen NORM Normal 0-1 [facility] Comment on above: Performed By: #### M G3, BMP3 ####The performing lab is in the report. Basic Metabolic Panelon 07-17 Anion gap 3 molar conc 7 mmol/L Normal [facility] Comment on above: Performed By: #### M G3, BMP3 ####The performing lab is in the report. Calcium mass conc 9.0 mg/dL Normal 8.4-10.2 [facility] Comment on above: Performed By: #### M G3, BMP3 ####The performing lab is in the report. CO2 molar conc 26 mmol/L Normal 22-30 [facility] Comment on above: Performed By: #### M G3, BMP3 ####The performing lab is in the report. Glucose mass conc 162 mg/dL High 70-100 [facility] Comment on above: Performed By: #### M G3, BMP3 ####The performing lab is in the report. Urea nitrogen mass conc 18 mg/dL Normal 7-20 [facility] Comment on above: Performed By: #### M G3, BMP3 ####The performing lab is in the report. Creatinine mass conc 0.95 mg/dL Normal 0.52-1.25 [facility] Comment on above: Performed By: #### M G3, BMP3 ####The performing lab is in the report. GFR/1.73 sq M predicted among blacks MDRD vol rate/area (S/P/Bld) mL/min/{1.73_m2} Normal >60 [facility] Comment on above: Performed By: #### M G3, BMP3 ####The performing lab is in the report. GFR/1.73 sq M predicted among non-blacks MDRD vol rate/area (S/P/Bld) mL/min/{1.73_m2} Normal >60 [facility] Comment on above: Result Comment: Sour ce- MDRD equation with creatinine calibration to IDMS(NKDEP)eGFR not recommended for drug dose adjustment Performed By: #### M G3, BMP3 ####The performing lab is in the report. Potassium molar conc 4.1 mmol/L Normal 3.5-5.1 [facility] Comment on above: Performed By: #### M G3, BMP3 ####The performing lab is in the report. Chloride molar conc 105 mmol/L Normal 98-107 [facility] Comment on above: Performed By: #### M G3, BMP3 ####The performing lab is in the report. Sodium molar conc 138 mmol/L Normal 137-145 [facility] Comment on above: Performed By: #### M G3, BMP3 ####The performing lab is in the report. Magnesiumon 08-08-2017 Magnesium mass conc 2.1 mg/dL Normal 1.6-2.3 [facility] Comment on above: Performed By: #### M G3, BMP3 ####The performing lab is in the report. VL Vein Map for Preop Bypass [place] 08-08-2017 VL Vein Map for Preop Bypass Lower [place] Patient Name: JAMES REYES Ultrasound Exam Date/Time 08/08/2017 16:04:08 EDT Exam VL Vein Map for Preop Bypass Lower Ext Ordering Physician STACEY CLEMONS Accession Number [id number] CPT4 Codes 84265 () Reason For Exam pre op cabg Report [facility] ------ --- Bilateral LE Vein Mapping For Bypass Report Patient Name: James Reyes : 1955 Study Date: 08/08/2017 (61yrs) Age: 61 Account: [id number] Gender: M Loc: BP: Ordering: Stacey Clemons Technologist: Ordering Physician: Stacey Clemons Railroad Maintenance Clerk: Annie Castillo RVT Interpreting Physician: Willy Boykin ------ --- Location: [facility] ------ --- INDICATIONS: Pre OP [...] -----+ + Electronically signed by: Willy Boykin [id number] Final Dictated: 08/08/2017 4:29 pm Dictating Physician: WILLY BOYKIN Signed Date and Time: 08/08/2017 4:29 pm Signed by: WILLY BOYKIN Normal [facility] Diagnostic Catherizationon 0 08-07-2017 Diagnostic Catherization Patient Name: JAMES RASHID [facility] Electrical 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 MICRO-ORGANISMS SUGGESTIVE OF HELICOBACTER PYLORI. NEGATIVE FOR DYSPLASIA OR CARCINOMA. AB/PAS STAIN REVIEWED. [facility] CONVERTED ORDERING PROVIDER Ordering Provider: ELIN GOOD [facility] GISELA TILLMAN (BOTH E YES) [facility] Vital Signs Date Time Vital Sign Value Performing Clinician Tash vargas 07-17-2024 12:23-0400 Heart rate 60 /min Amanuel Parisi MD Work Phone: [facility] [employer] 07-17-2024 12:23-0400 SaO2% (BldA) [Mass fraction] 97 % Amanuel Parisi MD Work Phone: [facility] [employer] 07-17-2024 07:32-0400 Body temperature 97.11 [degF] Amanuel Parisi MD Work Phone: [facility] [employer] 07-17-2024 07:32-0400 Diastolic blood pressure 69 mm[Hg] Amanuel Parisi MD Work Phone: [facility] [employer] 07-17-2024 07:32-0400 Respiratory rate 18 /min Amanuel Parisi MD Work Phone: [facility] [employer] 07-17-2024 07:32-0400 Systolic blood pressure 133 mm[Hg] Amanuel Parisi MD Work Phone: [facility] [employer] 07-15-2024 17:31-0400 SaO2% (BldA) [Mass fraction] 92.2 % Amanuel Parisi MD Work Phone: [facility] [employer] 07-15-2024 11:40-0400 Body mass index (BMI) [Ratio] 39.74 kg/m2 Amanuel Parisi MD Work Phone: [facility] [employer] 07-15-2024 11:40-0400 Body weight 132.9 kg Amanuel Parisi MD Work Phone: [facility] [employer] 06-27-2024 11:19-0400 Diastolic blood pressure 69 mm[Hg] Pepe Marino MD Work Phone: [facility] [employer] 06-27-2024 11:19-0400 Heart rate 70 /min Pepe Marino MD Work Phone: [facility] [employer] 06-27-2024 11:19-0400 Systolic blood pressure 124 mm[Hg] Pepe Marino MD Work Phone: [facility] [employer] 06-04-2024 12:13-0500 SaO2% (BldA) [Mass fraction] 93 % Arsh Mar MD Work Phone: [facility] [employer] 06-04-2024 08:27-0500 Body temperature 96.49 [degF] Arsh Mar MD Work Phone: [facility] [employer] 06-04-2024 08:27-0500 Diastolic blood pressure 71 mm[Hg] Arsh Mar MD Work Phone: [facility] [employer] 06-04-2024 08:27-0500 Heart rate 52 /min Arsh Mar MD Work Phone: [facility] [employer] 06-04-2024 08:27-0500 Respiratory rate 18 /min Arsh Mar MD Work Phone: [facility] [employer] 06-04-2024 08:27-0500 Systolic blood pressure 144 mm[Hg] Arsh Mar MD Work Phone: [employer] 06-04-2024 06:00-0500 Body mass index (BMI) [Ratio] 39.86 kg/m2 Arsh Mar MD Work Phone: [employer] 06-04-2024 06:00-0500 Body weight 133.3 kg Arsh Mar MD Work Phone: [employer] 05-31-2024 10:56-0500 Body height 182.9 cm Arsh Mar MD Work Phone: [employer] 05-30-2024 13:55-0500 SaO2% (BldA) [Mass fraction] 95.9 % Arsh Mar MD Work Phone: [employer] 05-30-2024 09:49-0500 SaO2% (BldA) [Mass fraction] 89.5 % Arsh Mar MD Work Phone: [employer] 05-13-2024 13:10-0500 Body height 185.4 cm Pepe Marino MD Work Phone: [employer] 05-13-2024 13:10-0500 Body mass index (BMI) [Ratio] 39.58 kg/m2 Pepe Marino MD Work Phone: [employer] 05-13-2024 13:10-0500 Body weight 136.08 kg Pepe Marino MD Work Phone: [employer] 05-13-2024 13:10-0500 Diastolic blood pressure 50 mm[Hg] Pepe Marino MD Work Phone: [employer] 05-13-2024 13:10-0500 Heart rate 68 /min Pepe Marino MD Work Phone: [employer] 05-13-2024 13:10-0500 Systolic blood pressure 100 mm[Hg] Pepe Marino MD Work Phone: [employer] 03-08-2024 08:32-0500 Body height 182.9 cm Che Carrasco CNP Work Phone: [facility] [employer] 03-08-2024 08:32-0500 Body mass index (BMI) [Ratio] 38.52 kg/m2 Che Alegria 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 Work Phone: [facility] [employer] 03-08-2024 08:32-0500 Body weight 128.82 kg Che Alegria 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 - 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 Work Phone: [facility] [employer] 03-08-2024 08:32-0500 Diastolic blood pressure 48 mm[Hg] Che Alegria 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 - 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 Work Phone: [facility] [employer] 03-08-2024 08:32-0500 Heart rate 77 /min Che Alegria 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 - [employer] 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 Work Phone: [facility] [employer] 03-08-2024 08:32-0500 SaO2% (BldA) [Mass fraction] 95 % Che Alegria 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 - [employer] 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 Work Phone: [facility] [employer] 03-08-2024 08:32-0500 Systolic blood pressure 96 mm[Hg] Che Alegria 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 - [employer]OUN[employer] 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 Work Phone: [employer] 12-05-2023 13:07-0400 Diastolic blood pressure 61 mm[Hg] Gulshan Skiffey DO Work Phone: [employer] 12-05-2023 13:07-0400 Heart rate 56 /min Gulshan Skiffey DO Work Phone: [facility] 12-05-2023 13:07-0400 Respiratory rate 18 /min Gulshan Skiffey DO Work Phone: [employer] 12-05-2023 13:07-0400 SaO2% (BldA) [Mass fraction] 93 % Gulshan Skiffey DO Work Phone: [employer] 12-05-2023 13:07-0400 Systolic blood pressure 157 mm[Hg] Gulshan Skiffey DO Work Phone: [employer] 12-05-2023 13:07-0400 Body temperature 97.3 [degF] Gulshan Skiffey DO Work Phone: [facility] [employer] 11-30-2023 11:39-0400 Body height 188 cm Gulshan Arreola DO Work Phone: [facility] [employer] 11-30-2023 11:39-0400 Body mass index (BMI) [Ratio] 35.82 kg/m2 Gulshan Arreola DO Work Phone: [facility] [employer] 11-30-2023 11:39-0400 Body weight 126.55 kg Gulshan Arreola DO Work Phone: [facility] [employer] 09-14-2023 09:09-0400 Diastolic blood pressure 71 mm[Hg] Rony [facility]riaza DMD, MD [facility] 09-14-2023 09:09-0400 Heart rate 59 /min Rony [facility]riaza DMD, MD [facility] 09-14-2023 09:09-0400 Systolic blood pressure 134 mm[Hg] Rony [facility]riaza DMD, MD [facility] 09-05-2023 09:35-0400 Body height 188 cm Rony Arriaza DMD, MD [facility] 09-05-2023 09:35-0400 Body mass index (BMI) [Ratio] 36.59 kg/m2 Rony Arriaza DMD, MD [facility] 09-05-2023 09:35-0400 Body weight 129.28 kg Rony Arriaza DMD, MD [facility] 08-21-2023 10:08-0400 Body height 185.4 cm Otkillian Corcoran MD Work Phone: [employer] 08-21-2023 10:08-0400 Diastolic blood pressure 62 mm[Hg] Otkillian Corcoran MD Work Phone: [facility] [employer] 08-21-2023 10:08-0400 Heart rate 56 /min Otkillian Corcoran MD Work Phone: [facility] [employer] 08-21-2023 10:08-0400 SaO2% (BldA) [Mass fraction] 93 % Otfrphilip Corcoran MD Work Phone: [facility] [employer] 08-21-2023 10:08-0400 Systolic blood pressure 108 mm[Hg] Otfrphilip Corcoran MD Work Phone: [facility] [employer] 07-14-2023 11:56-0400 Body height 185.4 cm Mingo 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 - [employer]OUN[employer] 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 Work Phone: [facility] [employer] 07-14-2023 11:56-0400 Body mass index (BMI) [Ratio] 36.41 kg/m2 Mingo Leslye 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 - 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 Work Phone: [facility] [employer] 07-14-2023 11:56-0400 Body weight 125.19 kg Mingo Leslye 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 - [employer] 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 Work Phone: [facility] [employer] 05-12-2023 10:01-0500 Body height 185.4 cm Mingo Leslye 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 - [employer]OUN[employer] 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 Work Phone: [facility] [employer] 05-12-2023 10:01-0500 Body mass index (BMI) [Ratio] 36.41 kg/m2 Mingo Leslye 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 - [employer]OUN[employer] 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 Work Phone: [facility] [employer] 05-12-2023 10:01-0500 Body weight 125.19 kg Mingo Leslye 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 - [employer]OUN[employer] 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 Work Phone: [facility] [employer] 05-12-2023 10:01-0500 Diastolic blood pressure 60 mm[Hg] Mingo Leslye 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 - [employer]OUN[employer] 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 Work Phone: [facility] [employer] 05-12-2023 10:01-0500 Heart rate 62 /min Mingo Leslye 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 - [employer]OUN[employer] 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 Work Phone: [facility] [employer] 05-12-2023 10:01-0500 SaO2% (BldA) [Mass fraction] 98 % Mingo Leslye 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 - [employer]OUN[employer] 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 Work Phone: [facility] [employer] 05-12-2023 10:01-0500 Systolic blood pressure 104 mm[Hg] Mingo Gavin 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 - 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 Work Phone: [employer] 04-24-2023 08:16-0500 Body height 182.9 cm Gulshan Arreola DO Work Phone: [facility] 04-24-2023 08:16-0500 Body mass index (BMI) [Ratio] 37.97 kg/m2 Gulshan Sanchezy DO Work Phone: [facility] 04-24-2023 08:16-0500 Body weight 127.01 kg Gulshan Mckeonffey DO Work Phone: [facility] 04-24-2023 07:45-0500 Diastolic blood pressure 51 mm[Hg] Gulshan Sanchezy DO Work Phone: [facility] 04-24-2023 07:45-0500 Heart rate 68 /min Gulshan Sanchezy DO Work Phone: [facility] 04-24-2023 07:45-0500 Respiratory rate 18 /min Gulshan Arreola DO Work Phone: [facility] 04-24-2023 07:45-0500 SaO2% (BldA) [Mass fraction] 94 % Gulshan Arreola DO Work Phone: [facility] 04-24-2023 07:45-0500 Systolic blood pressure 112 mm[Hg] Gulshan Sanchezy DO Work Phone: [facility] 04-23-2023 20:11-0500 Body temperature 97.59 [degF] Gulshan Sanchezy DO Work Phone: [facility] 02-22-2023 10:01-0500 Body mass index (BMI) [Ratio] 33.64 kg/m2 Suzy Corcoran MD Work Phone: [facility] 02-22-2023 10:01-0500 Body weight 118.84 kg Otkillian Corcoran MD Work Phone: [facility] 02-22-2023 10:01-0500 Diastolic blood pressure 62 mm[Hg] Suzy Corcoran MD Work Phone: [facility] [employer] 02-22-2023 10:01-0500 Heart rate 102 /min Otfried Nilo MARTINEZ Work Phone: [employer] 02-22-2023 10:01-0500 SaO2% (BldA) [Mass fraction] 98 % Otfried Nilo MARTINEZ Work Phone: [facility] [employer] 02-22-2023 10:01-0500 Systolic blood pressure 130 mm[Hg] Otfried Nilo MARTINEZ Work Phone: [facility] [employer] 12-13-2022 11:57-0400 Body height 188 cm David Chen MD Work Phone: [facility] [employer] 12-13-2022 11:57-0400 Body mass index (BMI) [Ratio] 37.88 kg/m2 David Chen MD Work Phone: [employer] 12-13-2022 11:57-0400 Body weight 133.81 kg David Chen MD Work Phone: [employer] 12-13-2022 11:57-0400 Diastolic blood pressure 64 mm[Hg] David Chen MD Work Phone: [facility] [employer] 12-13-2022 11:57-0400 Heart rate 72 /min David Chen MD Work Phone: [employer] 12-13-2022 11:57-0400 Systolic blood pressure 102 mm[Hg] David Chen MD Work Phone: [facility] [employer] 07-18-2022 15:36-0400 Body temperature 98.1 [degF] Chelle Troncoso Work Phone: [employer] 07-18-2022 15:36-0400 Diastolic blood pressure 75 mm[Hg] Chelle Troncoso Work Phone: [employer] 07-18-2022 15:36-0400 Heart rate 60 /min Chelle Troncoso Work Phone: [facility] [employer] 07-18-2022 15:36-0400 Respiratory rate 20 /min Chelle Troncoso Work Phone: [employer] 07-18-2022 15:36-0400 SaO2% (BldA) [Mass fraction] 95 % Chelle Troncoso Work Phone: [employer] 07-18-2022 15:36-0400 Systolic blood pressure 139 mm[Hg] Chelle Troncoso Work Phone: [facility] [employer] 07-18-2022 13:41-0400 Body height 188 cm Chelle Troncoso Work Phone: [facility] 07-18-2022 13:41-0400 Body mass index (BMI) [Ratio] 38.52 kg/m2 Chelle Troncoso Work Phone: [employer] 07-18-2022 13:41-0400 Body weight 136.08 kg Chelle Troncoso Work Phone: [facility] [employer] 06-07-2022 11:39-0500 Body height 188 cm David Chen MD Work Phone: [facility] 06-07-2022 11:39-0500 Body mass index (BMI) [Ratio] 37.49 kg/m2 David Chen MD Work Phone: [facility] 06-07-2022 11:39-0500 Body weight 132.45 kg David Chen MD Work Phone: [facility] 06-07-2022 11:39-0500 Diastolic blood pressure 59 mm[Hg] David Chen MD Work Phone: [facility] 06-07-2022 11:39-0500 Heart rate 76 /min David Chen MD Work Phone: [facility] 06-07-2022 11:39-0500 Systolic blood pressure 90 mm[Hg] David Chen MD Work Phone: [employer] 01-11-2023 08:00-0500 Body height 188 cm [employer] 04-27-2022 08:00-0500 Body mass index (BMI) [Ratio] 36.98 kg/m2 [employer] 04-27-2022 08:00-0500 Body weight 130.64 kg [employer] 05-06-2019 23:30-0500 Diastolic blood pressure 54 mm[Hg] Barry Guadalupe MD Work Phone: [email or web address] Work Phone: 05-06-2019 23:30-0500 Heart rate 67 /min Barry Guadalupe MD Work Phone: [email or web address] Work Phone: 05-06-2019 23:30-0500 Respiratory rate 20 /min Barry Guadalupe MD Work Phone: [email or web address] Work Phone: 05-06-2019 23:30-0500 Systolic blood pressure 115 mm[Hg] Barry Guadalupe MD Work Phone: [email or web address] Work Phone: 05-06-2019 22:30-0500 SaO2% (BldA) [Mass fraction] 93 % Barry Guadalupe MD Work Phone: [email or web address] Work Phone: 05-06-2019 20:05-0500 Body temperature 98.2 [degF] Barry Guadalupe MD Work Phone: [email or web address] Work Phone: 04-12-2019 17:10-0500 Diastolic blood pressure 65 mm[Hg] James Begum MD Work Phone: [facility] Work Phone: 04-12-2019 17:10-0500 Heart rate 65 /min James Begum MD Work Phone: [email or web address] Work Phone: 04-12-2019 17:10-0500 Respiratory rate 18 /min James Begum MD Work Phone: [email or web address] Work Phone: 04-12-2019 17:10-0500 SaO2% (BldA) [Mass fraction] 99 % James Begum MD Work Phone: [email or web address] Work Phone: 04-12-2019 17:10-0500 Systolic blood pressure 132 mm[Hg] James Begum MD Work Phone: [email or web address] Work Phone: 04-12-2019 15:42-0500 Body height 188 cm James Begum MD Work Phone: [email or web address] Work Phone: 04-12-2019 15:42-0500 Body mass index (BMI) [Ratio] 37.75 kg/m2 James Begum MD Work Phone: [email or web address] Work Phone: 04-12-2019 15:42-0500 Body temperature 98.01 [degF] James Begum MD Work Phone: [email or web address] Work Phone: 04-12-2019 15:42-0500 Body weight 133.36 kg James Begum MD Work Phone: [email or web address] Work Phone: Encounters Encounter Date Encounter Type Care Provider Facility Start: 09-23-2024 ambulatory Chelle GARCIA Facil ity:[facility] Start: 07-15-2024 End: 07-17-2024 Evaluation and management of inpatient Amanuel Parisi MD Work Phone: [facility] Comment on above: Hematemesis (Primary Dx); Coffee ground emesis Start: 07-01-2024 End: 07-01-2024 ambulatory Chelle GARCIA [facility] Work Phone: Start: 07-01-2024 End: 07-01-2024 Departed Referred Chelle Troncoso [facility] [place] - [address] Start: 07-01-2024 End: 07-01-2024 ambulatory Chelle GARCIA Facility:[facility] Start: 06-27-2024 End: 06-27-2024 Patient encounter procedure Pepe Marino MD Work Phone: [facility] Urology [facility] Comment on above: BPH with lower urina ry tract symptoms without urinary obstruction; Urge incontinence; Elevated PSA; Gross hematuria Start: 06-27-2024 End: 06-27-2024 ambulatory PEPE MARINO [facility] Start: 06-02-2024 End: 06-02-2024 Telephone encounter Emmy Ramirez MD Work Phone: [facility] Pulmonary and Sleep Medicine [facility] Start: 05-30-2024 End: 06-04-2024 Evaluation and management of inpatient Arsh Mar MD Work Phone: [facility] Cardiac Progressive Care Unit PCU 2E Comment on above: Acute hypercapnic re spiratory failure (HCC) (Primary Dx); Hypercapnia; Hypoxia Start: 05-22-2024 End: 05-22-2024 Subsequent hospital visit by physician Pepe Marino MD Work Phone: [facility] Comment on above: Recurrent UTI Start: 05-22-2024 End: 05-22-[address] [facility] Start: 05-14-2024 ambulatory Chelle Arriaza ity:[facility] Start: 05-14-2024 Registered Referred Chelle [facility] - [address] Start: 05-13-2024 End: 05-13-[address] [facility] Start: 05-13-2024 End: 05-13-2024 Office outpatient new 45 minutes Pepe Marino MD Work Phone: [facility] Urology [facility] Comment on above: Elevated PSA (Primar y Dx); BPH with lower urinary tract symptoms without urinary obstruction; Urge incontinence; Gross hematuria; Recurrent UTI; Retention of urine, unspecified Start: 05-02-2024 End: 05-02-2024 Telephone encounter Pepe Marino MD Work Phone: [facility]rology - [place] Start: 04-01-2024 End: 04-01-2024 Departed Referred Chelle Cruz - [address] Start: 04-01-2024 End: 04-01-2024 ambulatory Chelle GARCIA Facility:[facility] Start: 03-26-2024 End: 03-26-2024 Departed Referred Chelle Troncoso -[facility] - [address] Start: 03-26-2024 End: 03-26-2024 ambulatory Chelle GARCIA Facility:[facility] Start: 03-08-2024 End: 03-08-2024 [facility] Start: 03-08-2024 End: 03-08-2024 Office outpatient visit 25 minutes Che Alegria 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 - 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 Work Phone: [facility] Cardiology - [place] Comment on above: 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 Start: 02-19-2024 End: 02-19-2024 ambulatory Chelle GARCIA Facility:[facility] Start: 01-01-2024 ambulatory Chelle GARCIA Facil ity:[facility] Start: 12-06-2023 ambulatory Chelle GARCIA Facil ity:[facility] Start: 11-29-2023 End: 11-29-2023 Subsequent hospital visit by physician [facility] Exam Room [address] [facility] Comment on above: Arrived Start: 11-29-2023 End: 11-29-2023 Emergency department patient visit GULSHAN ARREOLA [facility] Start: 11-29-2023 End: 12-05-2023 Evaluation and management of inpatient Gulshan Arreola DO Work Phone: [facility] Cardiac Post Intervention Progressive Care Unit CPI PCU 4W Comment on above: Closed head injury, initial encounter (Primary Dx); Fall, initial encounter; Pain in both knees, unspecified chronicity Start: 11-07-2023 End: 11-07-2023 ambulatory Chelle GARCIA Facility:[facility] Start: 10-31-2023 End: 10-31-2023 ambulatory Chelle GARCIA Facility:[facility] Start: 10-05-2023 End: 10-05-2023 ambulatory Chelle GARCIA Facility:[facility] Start: 09-14-2023 End: 09-14-2023 Patient encounter procedure Rony Arriaza DMD, MD Work Phone: [facility] Oral Surgery Comment on above: Chronic dental liana s extending to pulp (Primary Dx) Start: 09-14-2023 ambulatory UNKNOWN PROVIDER [facility] Start: 09-05-2023 ambulatory KLEVER ACEVEDO Facility :[facility] Start: 09-05-2023 End: 09-05-2023 Patient encounter procedure Rony Arrizaa DMD, MD Work Phone: [facility] Oral Surgery Comment on above: Caries (Primary Dx) Start: 08-21-2023 End: 08-21-2023 Office outpatient visit 25 minutes Otfried Alysa Corcoran MD Work Phone: [facility] Medical [facility] Cardiology Comment on above: CAD in siletz tribe artery ; Dyslipidemia Start: 08-21-2023 End: 08-21-2023 ambulatory OTFRIED [facility] Start: 07-14-2023 End: 07-14-2023 Subsequent hospital visit by physician Mingo Gavin APRN - LOUNGE 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 Work Phone: [facility] Non-Invasive Cardiology Comment on above: Coronary artery dise ase involving siletz tribe coronary artery of siletz tribe heart without angina pectoris; Stable angina pectoris Start: 07-13-2023 Documentation procedure Loretta oates RN [facility] Non-Invasive Cardiology Start: 07-13-2023 End: 07-13-2023 ambulatory [facility] Work Phone: Start: 07-13-2023 End: 07-13-2023 Departed Referred [facility] - [address] Start: 06-06-2023 End: 06-06-2023 ambulatory CHELLE TRONCOSO Facility:[facility] Start: 06-06-2023 End: 06-06-2023 Patient encounter procedure Marixa Stephens MD Work Phone: [facility] [place] Comment on above: Type 2 diabetes ran itus without retinopathy (HCC) (Primary Dx); Nonexudative age-related macular degeneration, bilateral, early dry stage; Cataract, nuclear sclerotic, both eyes Start: 05-12-2023 End: 05-12-2023 Office outpatient visit 25 minutes Mingo Carrasco CNP Work Phone: [facility] Cardiology Comment on above: Coronary artery dise ase involving siletz tribe coronary artery of s[place]tz tribe heart without angina pectoris (Primary Dx); Stable angina pectoris Start: 05-02-2023 End: 05-02-2023 ambulatory [facility] Work Phone: Start: 05-02-2023 End: 05-02-2023 Departed Referred [facility] - [address] Start: 04-24-2023 Documentation procedure Loretta oates RN [facility] Non-Invasive Cardiology Start: 04-24-2023 Telephone encounter Indy Alex esqueda PA-C Work Phone: [facility] Cardiology Start: 04-23-2023 End: 04-24-2023 Emergency department patient visit Gulshan Arreola DO Work Phone: [facility] Clinical Decision Unit CDU Comment on above: Chest pain, unspecif ied type (Primary Dx); Other chest pain Start: 02-22-2023 End: 02-22-2023 Office outpatient visit 25 minutes Suzy Corcoran MD Work Phone: [facility] Cardiology Comment on above: Coronary artery dise ase involving siletz tribe coronary artery of siletz tribe heart without angina pectoris (Primary Dx); Dyslipidemia Start: 12-13-2022 End: 12-13-2022 Office outpatient visit 40 minutes David Rodriguez MD Work Phone: [facility] General Surgery Comment on above: Functional diarrhea (Primary Dx) Start: 12-01-2022 End: 12-01-[address] [facility] Work Phone: Start: 12-01-2022 End: 12-01-2022 [facility] [address] [facility] Start: 10-13-2022 End: 10-13-2022 ambulatory [facility] Work Phone: Start: 10-13-2022 End: 10-13-2022 Departed Referred [facility] - [address] Start: 10-12-2022 End: 10-12-2022 ambulatory [facility] Work Phone: Start: 10-12-2022 End: 10-12-2022 Departed Referred [facility] - [address] Start: 10-12-2022 Registered Referred [facility] - [address] Start: 07-18-2022 End: 07-18-2022 Subsequent hospital visit by physician Chelle Troncoso Work Phone: [facility] Comment on above: Irritable bowel synd sage with both constipation and diarrhea (Primary Dx); Anemia, unspecified; Mixed irritable bowel syndrome; Encounter for screening for malignant neoplasm of colon Start: 06-07-2022 End: 06-07-2022 Office outpatient new 45 minutes David Rodriguez MD Work Phone: [facility] Medical [facility] General Surgery Comment on above: Irritable bowel synd sage with both constipation and diarrhea (Primary Dx) Start: 05-06-2022 End: 05-06-2022 Patient encounter procedure Wilma Grant OD Work Phone: [facility] Comment on above: Type 2 diabetes ran itus without retinopathy (HCC) (Primary Dx); Nonexudative age-related macular degeneration, bilateral, early dry stage; Cataract, nuclear sclerotic, both eyes; Papilloma of left upper eyelid; Tearing eyes Start: 04-27-2022 End: 04-27-2022 Subsequent hospital visit by physician Alicia Hansen Echo/Stress [facility] 1 Alicia Hansen Stress Comment on above: Coronary artery dise ase involving siletz tribe coronary artery of siletz tribe heart without angina pectoris; Other congestive heart failure (HCC) Start: 05-06-2019 End: 05-06-2019 Emergency department patient visit Barry Guadalupe MD Work Phone: [facility] ED Comment on above: Hyperkalemia (Primar y Dx); Acute renal failure, unspecified acute renal failure type (HCC) Start: 05-01-2019 End: 05-01-2019 Subsequent hospital visit by physician Haydee Lai MD Work Phone: [facility] Start: 04-12-2019 End: 04-12-2019 Emergency department patient visit James Begum MD Work Phone: [facility] Comment on above: Acute exacerbation o f chronic low back pain (Primary Dx) Start: 08-09-2018 Patient encounter procedure Melquiades Gaming [facility] Start: 12-29-2017 Patient encounter Melquiades Colon [facility] Start: 12-17-2017 Emergency department patient visit Pedro Rincon [facility] Start: 11-03-2017 Emergency department patient visit UNKNOWN PROVIDER [facility] Start: 10-16-2017 Evaluation and management of inpatient Stacey Clemons [facility] Start: 10-13-2017 Patient encounter Stacey Clemons [facility] Start: 09-24-2017 Emergency department patient visit Willy Reeder [facility] Start: 08-07-2017 Evaluation and management of inpatient UNKNOWN PROVIDER [facility] Start: 09-28-2006 End: 09-28-2006 Patient encounter procedure Elin Good Work Phone: [facility] Start: 09-28-2006 Results Only Elin Jara mary Work Phone: [facility] Procedures Date Procedure Procedure Detail Performing Clinician [...] on above: Performed By: #### L [id number] ####Academic Intern: CLARE SIMONS ([phone])[facility] ([facility])[address] Start: 07-15-2024 Blood typing serologic abo [...] 06-04-2024 Comprehensive metabo lic panel Krissy Murillo 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 - [employer]OUNGE 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 Work Phone: Start: 06-03-2024 Glucose quantitative blood xcpt reagent strip Manjinder Sanchez MD Work Phone: Start: 06-03-2024 Glucose quantitative blood xcpt reagent strip Manjinder Sanchez MD Work Phone: Start: 06-03-2024 Glucose quantitative blood xcpt reagent strip Manjinder Sanchez MD Work Phone: Start: 06-03-2024 End: 06-03-2024 Comprehensive metabolic panel Krissy Romans 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 - [employer]OUN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 Work Phone: Start: 06-02-2024 Glucose quantitative blood [...] Work Phone: Start: 06-02-2024 OXYGEN THERAPY Jaymie Hernandezus PA-C Work Phone: Start: 06-02-2024 OXYGEN THERAPY Jaymie Hernandezus PA-C Work Phone: Start: 06-02-2024 Basic metabolic [...] Urinalysis complete panel - Urine Haydee Willis DO Work Phone: Start: 05-30-2024 Urnls dip stick/tabl et rgnt auto w/o microscopy Haydee Willis DO Work Phone: Start: 05-30-2024 Assay of troponin quantitative Arsh Mar MD Work Phone: Start: 05-30-2024 Blood gases any combination ph pco2 po2 co2 hco3 Haydee Willis DO Work Phone: Start: 05-30-2024 Iadna s aureus [...] - Nasopharynx by JOAN with non-probe detection aHydee Willis Work Phone: Start: 05-30-2024 SARS-COV-2, FLU A/B, [...] 12-01-2023 Glucose quantitative blood xcpt reagent strip Folri Strickland MD Work Phone: Start: 12-01-2023 Glucose [...] or tooth spaces, per quadrant Jacqui Glass [employer] Work Phone: Start: 09-14-2023 extraction, erupted tooth or exposed root (elevation and/or forceps removal) Jacqui Glass DDS Work Phone: Start: 09-06-2023 panoramic radiograph ic image Wayne Gupta DDS Work Phone: Start: 08-21-2023 Follow-up visit CHELLE TRONCOSO Start: 07-14-2023 TTE w or w/o contr, cont ECG Mingo Ap Gavin 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 - [employer]OUNGE 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 Work Phone: Start: 04-24-2023 Glucose quantitative blood xcpt reagent strip Robbie Mckeon MD Work Phone: Start: 04-24-2023 Glucose quantitative blood xcpt reagent strip Gulshan Arreola DO Work Phone: Start: 04-24-2023 Ecg routine ecg w/le ast 12 lds trcg only w/o i&r Maya Girard 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 - [employer]OUNGE 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 Work Phone: Start: 04-24-2023 Comprehensive metabo lic panel Maya Girard 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 - [employer]OUNGE 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 Work Phone: Start: 04-24-2023 Lipid panel Maya Nayak 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 - [employer]OUNGE 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 Work Phone: Start: 04-24-2023 Lipid 1996 panel [...] Work Phone: Start: 07-18-2022 Colonoscopy Chelle Gandhi ner Work Phone: Start: 05-06-2022 Computerized ophthal martita imaging retina Wilma Grant OD Work Phone: Start: 04-27-2022 TTE w or wo fol yvonneDoppler Otfrphilip Corcoran MD Work Phone: Start: 04-13-2022 Lipid 1996 panel - S [place] or [place] Echo/Stress Start: 05-06-2019 Basic metabolic pane l calcium total Barry Guadalupe MD Work Phone: Start: 05-06-2019 End: 05-06-2019 Ecg routine ecg w/least 12 lds w/i&r aBrry Guadalupe MD Work Phone: Start: 05-01-2019 End: 05-01-2019 Radiologic exam both knees standing anteropost Haydee Lai MD Work Phone: Start: 05-23-2017 Colonoscopy [place] Echo/ Stress Start: 09-28-2006 CONVERTED SURGICAL PATHOLOGY Elin Good Work Phone: Plan of Treatment Date Care Activity Detail Author Start: 11-28-2033 DTaP/Tdap/Td Vaccines (2 - Td or Tdap) DTaP/Tdap/Td Vaccines (2 - Td or Tdap) [facility] Start: 07-18-2032 Screening for malignant neoplasm of colon [facility] Start: 05-23-2027 Colon cancer screen colonoscopy Colon cancer screen colonoscopy [facility] Work Phone: Start: 05-23-2027 Screening for malignant neoplasm of colon [employer] Start: 07-17-2025 Creatinine measurement Creatinine Level [employer] Start: 07-17-2025 Diabetes: Estimated Glomerular Filtration Rate for Kidney Health Diabetes: Estimated Glomerular Filtration Rate for Kidney Health [facility] [employer] Start: 07-17-2025 Potassium measurement Potassium Level [employer] Start: 07-15-2025 Hemoglobin A1c measurement Diabetes: Hemoglobin A1C [facility] [employer] Start: 06-04-2025 Creatinine measurement Creatinine Level [employer] Start: 06-04-2025 Diabetes: Estimated Glomerular Filtration Rate for Kidney Health Diabetes: Estimated Glomerular Filtration Rate for Kidney Health [employer] Start: 06-04-2025 Potassium measurement Potassium Level [employer] Start: 06-02-2025 Creatinine measurement Creatinine Level [employer] Start: 06-02-2025 Diabetes: Estimated Glomerular Filtration Rate for Kidney Health Diabetes: Estimated Glomerular Filtration Rate for Kidney Health [employer] Start: 06-02-2025 Potassium measurement Potassium Level [employer] Start: 03-08-2025 Creatinine measurement Creatinine Level [facility] [employer] Start: 03-08-2025 Diabetes: Estimated Glomerular Filtration Rate for Kidney Health Diabetes: Estimated Glomerular Filtration Rate for Kidney Health [employer] Start: 03-08-2025 Potassium measurement Potassium Level [employer] Start: 02-27-2025 Glaucoma screening Diabetes: Retinopathy Screening [facility] [employer] Start: 12-16-2024 Influenza vaccination Influenza Vaccine (Season Ended) [employer] Start: 12-04-2024 Creatinine measurement Creatinine Level [employer] Start: 12-04-2024 Diabetes: Estimated Glomerular Filtration Rate for Kidney Health Diabetes: Estimated Glomerular Filtration Rate for Kidney Health [facility] [employer] Start: 12-04-2024 Potassium measurement Potassium Level [employer] Start: 12-01-2024 Glaucoma screening Diabetes: Retinopathy Screening [facility] [employer] Start: 11-30-2024 Creatinine measurement Creatinine Level [employer] Start: 11-30-2024 Diabetes: Estimated Glomerular Filtration Rate for Kidney Health Diabetes: Estimated Glomerular Filtration Rate for Kidney Health [facility] [employer] Start: 11-30-2024 Potassium measurement Potassium Level [employer] Start: 11-29-2024 Echocardiography Echocardiogram [employer] Start: 11-29-2024 Hemoglobin A1c measurement Diabetes: Hemoglobin A1C [facility] [employer] Start: 11-29-2024 Lipid panel Lipid Panel [facility] Start: 09-27-2024 End: 09-27-2024 Patient encounter procedure 09/27/2024 10:30 AM EDT Office Visit [facility] U[facility] - [place] [address] [place] [phone] Pepe Marino MD [address] [place] [address] [facility] [place] Start: 08-05-2024 End: 08-05-2024 Patient encounter procedure 08/05/2024 10:00 AM EDT Office Visit [facility] Cardiology - [place] [address] [place] [phone] Suzy Corcoran MD [address] [place] [address] [facility] Cardiology [facility] Start: 07-31-2024 End: 07-31-2024 Patient encounter procedure 07/31/2024 1:40 PM EDT Office Visit [facility] Pulmonary and Sleep Medicine [facility] [address] [place] [address] Viki Ball APRN [facility] [address] [place] [address] [facility] Pulmonary [facility] Sleep Medicine [facility] Start: 06-27-2024 End: 12-28-2024 PSA, Monitoring ([facility]) PSA, Monitoring ([facility]) Lab Routine Elevated PSA Expected: 06/27/2024 (Approximate), Expires: 12/28/2024 [facility] Work Phone: Comment on above: Expected: 06/27/2024 (Approximate), Expi res: 12/28/2024 Start: 06-27-2024 End: 06-27-2024 Patient encounter procedure 06/27/2024 11:20 AM EDT [facility] [place] [address] [place] [phone] Pepe Marino MD [address] [place] [address] [facility] [place] Start: 06-19-2024 End: 06-19-2024 Patient encounter procedure 06/19/2024 11:40 AM EST Office Visit [facility] Pulmonary and Sleep Medicine - [place] [address] [place] [address] Viki Ball APRN - LOUNGE 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 [address] [place], [place] [address] [facility] Pulmonary and Sleep Medicine [facility] Start: 06-06-2024 Glaucoma screening Dilated Retinal Exam [facility] Start: 06-04-2024 End: 06-04-2025 Nasal Cannula- Oxygen Therapy Nasal Cannula- Oxygen Therapy Respiratory Care Routine Acute hypercapnic respiratory failure (HCC) Expected: 06/04/2024 (Approximate), Expires: 06/04/2025 [facility] Work Phone: Comment on above: Expected: 06/04/2024 (Approximate), Expi res: 06/04/2025 Start: 05-13-2024 End: 11-10-2024 PSA, Monitoring ([facility]) PSA, Monitoring ([facility]) Lab Routine Elevated PSA Expected: 05/13/2024 (Approximate), Expires: 11/10/2024 [facility] Work Phone: Comment on above: Expected: 05/13/2024 (Approximate), Expi res: 11/10/2024 Start: 05-13-2024 End: 05-13-2025 XR Abdomen Single view XR abdomen 1 view Imaging Routine Recurrent UTI Expected: 05/13/2024, Expires: 05/13/2025 [facility] Comment on above: Expected: 05/13/2024, Expires: Start: 05-13-2024 End: 05-13-2024 Patient encounter procedure 05/13/2024 1:00 PM EST Office Visit [facility] [place] [address] [place] [phone] Pepe Marino MD [address] [place] [address] [facility] [place] Start: 04-24-2024 Creatinine measurement [facility] Start: 04-24-2024 Hepatitis B surface antibody level LDL Cholesterol [facility] Start: 04-24-2024 Lipid panel [facility] Start: 04-24-2024 Potassium measurement Potassium Level [facility] Start: 02-21-2024 End: 02-21-2024 Patient encounter procedure 02/21/2024 10:00 AM EST Office Visit [facility] Cardiology [address] [place] [phone] Che Alegria, 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 - LOUNGE 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 [address] [address] [facility] Cardiology Start: 01-13-2024 Hemoglobin A1c measurement Hemoglobin A1C [facility] Start: 12-17-2023 COVID-19 Vaccine ( season) COVID-19 Vaccine ( season) [facility] Start: 12-17-2023 Influenza vaccination [facility] Start: 12-02-2023 Glaucoma screening [facility] Start: 08-21-2023 End: 08-21-2023 Patient encounter procedure [facility] Cardiology Start: 07-14-2023 End: 07-14-2023 Patient encounter procedure 07/14/2023 11:00 AM EDT Appointment [facility] Non-Invasive Cardiology [address] [place] [phone] Mingo Gavin, 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 - LOUNGE 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 [address] [place] [address] [facility] Non-Invasive Cardiology Start: 05-12-2023 End: 05-12-2025 Stress echocardiogram (TTE) dobutamine with contrast, bubble, strain, and 3D PRN order panel Stress echocardiogram (TTE) dobutamine with contrast, bubble, strain, and 3D PRN order panel CV Stress Echocardiography Routine Coronary artery disease involving siletz tribe coronary artery of sile[place] tribe heart without angina pectoris Stable angina pectoris Expected: 05/12/2023 (Approximate), Expires: 05/12/2025 [facility] Work Phone: Comment on above: Expected: 05/12/2023 (Approximate), Expi res: 05/12/2025 Start: 05-12-2023 End: 05-12-2023 Patient encounter procedure 05/12/2023 10:00 AM EST Office Visit [facility] Cardiology [address] [place] [address] Mingo Gavin, 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 - LOUNGE 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 [address] [place] [address] [facility]iology Start: 05-06-2023 Hepatitis C antibody, confirmatory test DILATED RETINAL EXAM [facility] Start: 05-05-2023 End: 05-05-2023 Patient encounter procedure 05/05/2023 11:30 AM EST Office Visit [facility] Cardiology [address] [place] [address] Miranda Griffin 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 - LOUNGE 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 [address] [address] [facility] Cardiology Start: 05-05-2023 End: 05-05-2023 Patient encounter procedure 05/05/2023 8:30 AM EST Office Visit [facility] Cardiology [address] [place] [address] Mingo Gavin, 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 - LOUNGE 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 [address] [place] [address] [facility] Start: 04-27-2023 Echocardiography Echocardiogram [facility] Start: 04-17-2023 Advance Directive Discussion Advance Directive Discussion [facility] Start: 04-17-2023 Depression Assessment Depression Assessment [facility] Start: 04-13-2023 Creatinine measurement Creatinine Level [facility] Start: 04-13-2023 Lipid panel Lipid Panel [facility] Start: 04-13-2023 Potassium measurement Potassium Level [facility] Start: 02-27-2023 End: 02-27-2023 Patient encounter procedure 02/27/2023 10:30 AM EST Office Visit [facility] [address] [facility] [place] [id number] Suzy Corcoran MD [address] [place] [address] [facility] Start: 12-16-2022 COVID-19 Vaccine ( season) COVID-19 Vaccine () [facility] Start: 12-16-2022 COVID-19 Vaccine () COVID-19 Vaccine () [facility] Start: 12-16-2022 COVID-19 Vaccine () COVID-19 Vaccine () [facility] Start: 12-16-2022 Influenza vaccination [facility] Start: 08-05-2022 End: 08-05-2022 Patient encounter procedure 08/05/2022 Office Visit Cardiology Mingo Gavin APRN - LOUNGE 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 [address] [place] [address] [facility] Start: 07-18-2022 End: 07-18-2022 [...] procedure 07/15/2022 Office Visit Cardiology Mingo Gavin APRN - LOUNGE 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 [address] [place] [address] [facility] Start: 06-29-2022 COVID-19 Vaccine (7 - Pfizer series) COVID-19 Vaccine (7 - Pfizer series) [facility] Start: 04-17-2022 ADVANCE DIRECTIVE DISCUSSION ADVANCE DIRECTIVE DISCUSSION [facility] Start: 04-17-2022 DEPRESSION ASSESSMENT DEPRESSION ASSESSMENT [facility] Start: 12-16-2021 Influenza vaccination [facility] Start: 12-17-2019 Influenza vaccination INFLUENZA (#1) [facility] Start: 08-14-2019 End: 08-14-2019 Patient encounter procedure 08/14/2019 Office Visit Urology Wilma Powell PA-C [address] [facility] [address] [place] [id number] [facility] Urology LO Start: 12-17-2018 Creatinine monitoring Creatinine monitoring [email or web address] Work Phone: Start: 12-17-2018 Potassium monitoring Potassium monitoring [email or web address] Work Phone: Start: 12-16-2018 Influenza vaccination Flu vaccine (#1) [employer] Work Phone: Start: 10-19-2018 A1C test (Diabetic or Prediabetic) A1C test (Diabetic or Prediabetic) [email or web address] Work Phone: Start: 09-24-[address] lung screening Low dose CT lung screening [email or web address] Work Phone: Start: 04-22-2018 Hemoglobin A1c measurement HbA1C [facility] Start: 09-01-2017 Diabetes: Urine Albumin-Creatinine Ratio for Kidney Health Diabetes: Urine Albumin-Creatinine Ratio for Kidney Health [facility] Start: 09-01-2017 Diabetic microalbuminuria test Diabetic microalbuminuria test [email or web address] Work Phone: Start: 06-07-2017 Hemoglobin A1c/Hemoglobin.total in Blood HBA1C [facility] Start: 05-10-2017 Lipid screen Lipid screen [email or web address] Work Phone: Start: 10-04-2016 3 comp foot exam completed Diabetic foot exam [employer] Work Phone: Start: 2016 Hepatitis B (HBV) Vaccine (optional start 60+ years) Hepatitis B (HBV) Vaccine (optional start 60+ years) [facility] Start: 2016 Hepatitis B Vaccines (1 of 3 - Risk 3-dose series) Hepatitis B Vaccines (1 of 3 - Risk 3-dose series) [facility] Start: 2016 RSV Immunization aged 60 or older (1 - 1-dose 60+ series) RSV Immunization aged 60 or older (1 - 1-dose 60+ series) [facility] Start: 2016 RSV Immunization for Adults (1 - Risk 60-74 years 1-dose series) RSV Immunization for Adults (1 - Risk 60-74 years 1-dose series) [facility] Start: 2016 RSV Vaccine (1 - 1-dose 60+ series) RSV Vaccine (1 - 1-dose 60+ series) [facility] Start: 2016 RSV vaccine (optional 60+ years) RSV vaccine (optional 60+ years) [facility] Start: 02-16-2016 Pneumococcal Vaccine: 50+ Years (2 of 2 - PCV) Pneumococcal Vaccine: 50+ Years (2 of 2 - PCV) [facility] Start: 02-16-2016 Pneumococcal Vaccine: 65+ Years (2 - PCV) Pneumococcal Vaccine: 65+ Years (2 - PCV) [facility] Start: 02-16-2016 Pneumococcal Vaccine: 65+ Years (2 of 2 - PCV) Pneumococcal Vaccine: 65+ Years (2 of 2 - PCV) [facility] Start: 09-20-2014 Pneumococcal Vaccine: 65+ (2 of 2 - PCV) Pneumococcal Vaccine: 65+ (2 of 2 - PCV) [facility] Start: 10-04-2011 PROSTATE CANCER SCREENING DISCUSSION PROSTATE CANCER SCREENING DISCUSSION [facility] Start: 10-04-2011 Prostate specific antigen measurement Prostate Cancer Screening Discussion [facility] Start: 2006 Screening for malignant neoplasm of lung Lung Cancer Screening [facility] Start: 2006 Shingles (RZV) Vaccine (1 of 2) Shingles (RZV) Vaccine (1 of 2) [facility] Start: 2006 Shingles Vaccine (1 of 2) Shingles Vaccine (1 of 2) [facility] Work Phone: Start: 2006 SHINGRIX VACCINE (1 of 2) SHINGRIX VACCINE (1 of 2) [facility] Start: 2006 Tuberculosis screening COLORECTAL CANCER SCREENING,SEE MODIFIER [facility] Start: 2006 Zoster Vaccines (1 of 2) Zoster Vaccines (1 of 2) [facility] Start: 2001 COLOGUARD (FIT-DNA) COLOGUARD (FIT-DNA) [facility] Start: 2001 Colonoscopy COLONOSCOPY [facility] Start: 2001 COLORECTAL CANCER SCREENING COLORECTAL CANCER SCREENING [facility] Start: [address] COLONOGRAPHY [facility] Start: 2001 DIABETES SCREEN DIABETES SCREEN [facility] Start: 2001 FECAL OCCULT BLOOD FECAL OCCULT BLOOD [facility] Start: 2001 Screening for malignant neoplasm of colon [facility] Start: 2001 SIGMOIDOSCOPY SIGMOIDOSCOPY [facility] Start: 10-04-1991 LIPID SCREEN LIPID SCREEN [facility] Start: 1986 Zoledronic acid therapy ALPHA-1 ANTITRYPSIN DEFICIENCY SCREENING [facility] Start: 10-04-1975 DTaP/Tdap/Td Vaccines (1 - Tdap) DTaP/Tdap/Td Vaccines (1 - Tdap) [facility] Start: 10-04-1975 Hepatitis A (HAV) Vaccine (optional start 19+ years) Hepatitis A (HAV) Vaccine (optional start 19+ years) [facility] Start: 10-04-1975 Pneumococcal Vaccine: 50+ Years (1 of 2 - PCV) Pneumococcal Vaccine: 50+ Years (1 of 2 - PCV) [facility] Start: 10-04-1975 Urine microalbumin profile [facility] Start: 10-04-1975 Urine screening for protein Diabetes: Urine Protein Screening [facility] Start: 1974 ANNUAL PCP TEAM CHRONIC DISEASE VISIT ANNUAL PCP TEAM CHRONIC DISEASE VISIT [facility] Start: 1974 Diabetes: Urine Albumin-Creatinine Ratio for Kidney Health Diabetes: Urine Albumin-Creatinine Ratio for Kidney Health [facility] Start: 1974 Hepatitis B surface antibody level LDL CHOLESTEROL [facility] Start: 1974 HEPATITIS C SCREENING HEPATITIS C SCREENING [facility] Start: 1974 Hepatitis C screening [facility] Start: 1974 HIV SCREENING HIV SCREENING [facility] Start: 1974 SPIROMETRY SPIROMETRY [facility] Start: 1974 Tetanus + diphtheria + acellular pertussis vaccine (product) Tdap Booster [facility] Start: 10-04-1971 HIV screen HIV screen [facility] [employer] Phone: Start: 1968 Depression Monitoring Depression Monitoring [facility] Start: 1968 Depression Screening Depression Screening [facility] Start: 10-04-1967 DTaP/Tdap/Td vaccine (1 - Tdap) DTaP/Tdap/Td vaccine (1 - Tdap) [facility] Work Phone: Start: 1966 3 comp foot exam completed DIABETIC FOOT EXAM [facility] Start: 1966 Diabetic foot examination [facility] Start: 1966 Diabetic retinal exam Diabetic retinal exam [facility] Work Phone: Start: 1966 Glaucoma screening Diabetes: Retinopathy Screening [facility] Start: 1966 Hepatitis B screening URINE ALBUMIN:CREATININE RATIO [facility] Start: 1966 Preventive dental service Diabetes: Dental Exam [facility] Start: 1962 Pneumococcal 0-64 years Vaccine (1 of 1 - PPSV23) Pneumococcal 0-64 years Vaccine (1 of 1 - PPSV23) [facility] Work Phone: Start: 1962 Pneumococcal vaccination Pneumococcal Vaccine(s) (65+ yrs) (1 of 2 - PCV) [facility] Start: 1962 Pneumococcal Vaccine: 65+ Years (1 - PCV) Pneumococcal Vaccine: 65+ Years (1 - PCV) [facility] Start: 1962 Pneumococcal Vaccine: 65+ Years (1 of 2 - PCV) Pneumococcal Vaccine: 65+ Years (1 of 2 - PCV) [facility] Start: 1962 PNEUMOCOCCAL: 65+ (1 - PCV) PNEUMOCOCCAL: 65+ (1 - PCV) [facility] Start: 1956 Urine screening for protein Microalbumin [facility] Start: 1956 ABDOMINAL AORTIC ANEURYSM SCREENING ABDOMINAL AORTIC ANEURYSM SCREENING [facility] Start: 1956 Abdominal aortic aneurysm screening Abdominal Aortic Aneurysm Screening [facility] Start: 1956 Annual wellness visit Medicare Initial Physical (IPPE) [facility] Start: 1956 Diabetic foot examination Foot Exam [facility] Start: 1956 Hemoglobin A1c measurement Diabetes: Hemoglobin A1C [facility] Start: 1956 Hepatitis B Vaccines (1 of 3 - 3-dose series) Hepatitis B Vaccines (1 of 3 - 3-dose series) [facility] Start: 1956 Pulmonary Function Testing Pulmonary Function Testing [facility] Start: 1956 Screening for malignant neoplasm of colon [facility] End: 06-02-2024 Bacteria identified in Lower respiratory specimen by Aerobe culture Respiratory culture and Stain Microbiology Routine Once (Lab) for 1 Occurrences starting 06/02/2024 until 06/02/2024 [employer] Work Phone: Comment on above: Once (Lab) for 1 Occurrences starting until 06/02/2024 Bacteria identified in Urine by Culture Urine culture Microbiology Routine 12/03/2023 11:23 PM EDT [employer] Work Phone: ECG 12 lead ECG 12 lead CV E CG Routine 04/24/2023 7:14 AM EST [employer] Work Phone: ECG 12 lead - CLINIC PERFORMED E CG 12 lead - CLINIC PERFORMED CV ECG Routine Chest pain, unspecified type 03/08/2024 9:24 AM EST [employer] Work Phone: EKG 12 Lead [employer] Work Phone: End: 05-30-2024 Legionella and Streptococcus [facility]rine Antigen [facility] Work Phone: Comment on above: Once (Lab) for 1 Occurrences starting until 05/30/2024 Tissue exam Tissue exam Path ology and Cytology Timed Anemia, unspecified Mixed irritable bowel syndrome Encounter for screening for malignant neoplasm of colon Release Upon Ordering for 1 Occurrences starting 07/18/2022 [employer] Work Phone: Comment on above: Release Upon Ordering for 1 Occurrences starting 07/18/2022 Tissue exam [facility] Work Phone: Comment on above: Release Upon Ordering for 1 Occurrences starting 07/16/2024, 1 completed End: 05-30-2024 Urine Hold Cup Urine Hold Cup Lab Timed Once for 1 Occurrences starting 05/30/2024 until 05/30/2024 [facility] [employer] Comment on above: Once for 1 Occurrences starting 05/30/19 until 05/30/2024 End: 05-22-2024 US [facility]roperitoneum [facility] Work Phone: Comment on above: Once for 1 Occurrences starting 05/22/19 until 05/22/2024 Immunizations Immunization Date Immunization Notes Care Provider Navjot flores 11-29-2023 tetanus toxoid, reduced diphtheria toxoid, and acellular pertussis vaccine, adsorbed [facility] 1 [facility] 07-13-2023 Hemoglobin A1C Rony Macdonald i, DMD, MD Work Phone: [facility] 03-01-2022 Pfizer Bivalent (12+ YRS) SARS-COV-2 (COVID-19) vaccine, mRNA, spike protein, LNP, pres. free, 30 mcg/0.3mL dose, jose maria-sucrose (NDW=705) Rony Arriaza DMD, MD Work Phone: [facility] 03-01-2022 Pfizer Monovalent (1 2+ yrs) SARS-COV-2 (COVID-19) vaccine, mRNA, spike protein, LNP, pres. free, 30 mcg/0.3mL dose (TEX=595) Rony Arriaza DMD, MD Work Phone: [facility] 02-04-2022 influenza, injectabl e, quadrivalent, contains preservative Rony Arriaza DMD, MD Work Phone: [facility] 02-04-2022 influenza virus vaccine, unspecified formulation David Chen MD Work Phone: [facility] 09-01-2021 Pfizer Monovalent (1 2+ yrs) SARS-COV-2 (COVID-19) vaccine, mRNA, spike protein, LNP, pres. free, 30 mcg/0.3mL dose (NWR=380) Rony Arriaza DMD, MD Work Phone: [facility] 09-01-2021 Pfizer Monovalent (1 2+ yrs) SARS-COV-2 (COVID-19) vaccine, mRNA, spike protein, LNP, pres. free, 30 mcg/0.3mL dose, jose maria-sucrose (WFN=177) Rony Arriaza DMD, MD Work Phone: [facility] 02-02-2021 [facility] Monovalent (12+ yrs) COVID-19 vaccine, mRNA, spike protein, LNP, PF, 100 mcg/0.5 mL (ZAE=508) Rony Arriaza DMD, MD Work Phone: [facility] 02-02-2021 Pfizer Monovalent (1 2+ yrs) SARS-COV-2 (COVID-19) vaccine, mRNA, spike protein, LNP, pres. free, 30 mcg/0.3mL dose (ZHN=704) Rony Arriaza DMD, MD Work Phone: [facility] 01-26-2021 influenza, injectabl e, quadrivalent, contains preservative Rony Arriaza DMD, MD Work Phone: [facility] 01-04-2017 influenza, high dose seasonal, preservative-free James Begum MD Work Phone: [facility] Work Phone: 01-04-2017 influenza virus vaccine, unspecified formulation [facility] 01-08-2015 influenza virus vaccine, unspecified formulation James Begum MD Work Phone: [facility] 01-08-2014 influenza, seasonal, injectable Rony Arriaza DMD, MD Work Phone: [facility] 09-20-2013 pneumococcal Conjugate, unspecified formulation James Begum MD Work Phone: [facility] 01-27-2010 influenza virus vaccine, whole virus Rony Arriaza DMD, MD Work Phone: [facility] Payers Date Payer Category Payer Self-pay 2018 Medicaid 2018 Medicaid MEDICAID [facility] DEPT OF JOB xxxxxxxxxxxx 2018-Present [phone] [address] [place] [address] xxxxxxxxxxxx [id number] 2018 Medicaid [id number] 1955 Unknown [id number] 1956 Unknown [id number] 2..840.1.809050.3.579.2. 1956 Unknown [id number] 2.16.840.1.423875.3.579.2. 1956 Unknown [id number] 2..840.1.558940.3.579.2. 1956 Unknown [id number] 2.840.1.442233.3.579.2. 1956 Unknown [id number] 2.840.1.685829.3.579.2. 1956 Unknown [id number] 2.840.1.430686.3.579.2. 1956 Unknown [id number] 2.840.1.394260.3.579.2. 1956 Unknown [id number] 2.840.1.754569.3.579.2.732 1956 Unknown [id number] 2.840.1.500883.3.579.2.732 Unknown Unknown [id number] 2.840.1.761210.3.579.2.462 Unknown [id number] 2.840.1.308338.3.579.2.462 Unknown [id number] 2.840.1.399311.3.579.2.462 Unknown [id number] 2.840.1.372171.3.579.2.462 Unknown [id number] 2.840.1.714088.3.579.2.462 Unknown [id number] 2.840.1.901211.3.579.2.462 Unknown [id number] 2.840.1.767943.3.579.2.462 Unknown [id number] 2..840.1.728664.3.579.2.462 Unknown [id number] 2..840.1.443716.3.579.2.462 Unknown [id number] 2.16.840.1.891752.3.579.2.462 Unknown [id number] 2.840.1.921872.3.579.2.462 Social History Date Type Detail Facility [facility] Start: 1955 Sex Assigned At Not on file [employer] Work Phone: Start: 04-28-1973 End: 11-29-2023 Tobacco smoking status [facility] Current every day smoker [facility] Start: 04-28-1973 History of tobacco use Cigarette Smo ker [facility] Start: 04-12-2019 End: 11-30-2023 Cigarettes smoked current (pack per day) - Reported [facility] Start: 04-12-2019 End: 07-16-2024 Alcohol intake Current non-drinker of alcohol (finding) [employer] Phone: Start: 01-26-2017 Alcohol Comment last drinking 1984 [employer] Phone: Start: 12-26-2016 End: 11-29-2023 Tobacco use and exposure Smokeless tobacco non-user [facility] Start: 04-03-2022 End: 12-13-2022 Exposure to SARS-CoV-2 (event) Not sure [facility] Start: 1955 Sex Assigned At Male [facility] Start: 09-02-2022 End: 11-30-2023 Tobacco use panel [facility] Within the last year , have you been afraid of your partner or ex-partner? No [facility] National Score (1-100), lower number is lower risk 79 [facility] Tobacco smoking stat [facility] Tobacco smoking consumption unknown [facility] How often to you hav e a drink containing alcohol? Never [facility] Start: 11-15-2021 End: 07-23-2024 Sex Male (finding) [facility] Medical Equipment Procedure Code Equipment Code Equipment Origin al Text Equipment Identifier Dates USE DIRECTED FOR INSULIN 4 TIMES DAILY [id number] Start: 01-23-2017 Clinical Notes 04-12-2019 to 07-17-2024 Lashay Divina, RN ADMIT - 07/17/2024 2:24 PM Adelita Forman APRN - LOUNGE 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 - 07/17/2024 11:38 AM LIVIAmejia Nicholasfloresita - 07/17/2024 9:47 AM Keyla Conklin, OT - 07/16/2024 2:17 PM EDTWalt Instr - CRUZ Note Date & Type Note Facility 07-17-2024 History of Present illness Narrative Images from the original note were not included. PHYSICAL THERAPY [facility] Treatment Note Name/MRN: James Reyes ([id number]) Date of : 1955 Age: 68 y.o. Room/Bed: [facility] B Visit #: 1 out of 7 visits Discharge Recommendation: Detention Facility Other: TBD at next level of [...] from the original note were not included. [facility], Pulmonary Medicine [address] [place], [place] [id number] Patient - James Reyes, Age - 68 y.o. - 1955 Room Number - [id number] B Consulting - Delisa Courtney MD Primary Care Physician - [id number] Date of Admission - 07/15/2024 11:38 AM [...] non compliant per Liliana, his nurse at [facility]. 50 pack year smoking history. [...] Nightly mometasone-formoterol, 2 puff, Inhalation, BID pancrelipase ([id number]-[id number]-[id number]), 2 capsule, Oral, TID WC pantoprazole, 40 [...] 1.0 1.1 PTT No results found for: PTT Cultures COVID/Flu/RSV: Negative Radiology Chest x-ray 07/15/2024 IMPRESSION: Borderline cardiomegaly. Low lung volumes and pulmonary vascular congestion. No lobar consolidation is seen. Active Hospital Problem List Patient Active Problem List Diagnosis Shoulder pain, left Dyslipidemia Knee pain, bilateral Knee osteoarthritis Insulin dependent diabetes mellitus MINERVA (obstructive sleep apnea) Tobacco abuse Esophagitis, reflux Morbid obesity ([facility]) Type 2 diabetes, uncontrolled, with neuropathy Wound disruption, post-op, skin, initial encounter Uncontrolled type 2 diabetes mellitus with hyperglycemia, with long-term current use of insulin ([facility]) CAD in [place] artery Uncontrolled type 2 diabetes mellitus with complication, with long-term current use of insulin IBS (irritable bowel syndrome) Pseudomonas aeruginosa infection Angina at rest ([facility]) Sternal wound dehiscence 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 Enlarged prostate with lower urinary tract symptoms (LUTS) Hypertensive heart disease COPD (chronic obstructive pulmonary disease) ([facility]) Arthritis of foot, degenerative Hiatal hernia Colitis Chest pain Anemia Colitis, collagenous Gastroesophageal reflux disease without esophagitis Closed head injury, initial encounter Acute hypercapnic respiratory failure ([facility]) Hematemesis Assessment Chronic hypoxic and hypercapnic respiratory failure Probable underlying COPD, not in acute exacerbation Suspected MINERVA Coffee-ground emesis-EGD with erythematous gastric mucosa without active bleeding Recommendations I spoke with patient's nurse Liliana at [facility] today. Patient supposed to be on 4 liters NC at nursing facility but is non compliant. He is currently on 6 liters NC this morning. I spoke with Isael RN on 4 . Plan to wean FiO2 back to [...] be monitored and followed by the diet emissions testing technician. Images from the original note were not included. OCCUPATIONAL THERAPY [facility] Initial Evaluation Name/MRN: James Ryees ([id number]) Evaluation Date: 07/16/2024 Date of : 1955 Admission Date: 07/15/2024 11:38 AM Age: 68 y.o. Room/Bed: [facility] B Discharge Recommendation: Detention Facility Assessment IMPRESSION: Prior to admission, pt [...] Acute kidney injury (HCC) 09/11/2015 CAD in [place] artery 08/08/2017 COPD (chronic obstructive pulmonary disease) [...] 07/18/2022 Performed by David Chen MD at [facility] OR CORONARY ARTERY BYPASS GRAFT ESOPHAGOGASTRODUODENOSCOPY N/A 07/16/2024 Dr Blackwood FOOT SURGERY Left 2015 HEMORRHOID SURGERY 1998 [...] 08/08/2017 Hematemesis 07/15/2024 Acute hypercapnic respiratory failure ([facility]) 05/30/2024 Closed head injury, initial encounter 11/29/2023 Uncontrolled type 2 diabetes mellitus with hyperglycemia, with long-term current use of insulin ([facility]) 10/30/2017 Uncontrolled type 2 diabetes mellitus with complication, with long-term current use of insulin 10/25/2017 Pseudomonas aeruginosa infection 10/20/2017 Sternal wound dehiscence 10/20/2017 [facility] (current) use of antibiotics 10/20/2017 Wound disruption, post-op, skin, initial encounter 10/16/2017 Dyslipidemia 08/08/2017 Knee osteoarthritis 08/08/2017 Insulin dependent diabetes mellitus 08/08/2017 MINERVA (obstructive sleep apnea) 08/08/2017 Tobacco abuse 08/08/2017 CAD in [place] artery 08/08/2017 Angina at rest ([facility]) 08/08/2017 Hypertensive heart disease 08/08/2017 COPD (chronic obstructive pulmonary disease) ([facility]) 08/08/2017 Chest pain 08/06/2017 Colitis, collagenous 06/15/2017 Anemia 05/23/2017 Gastroesophageal reflux disease without esophagitis 05/23/2017 Colitis 05/21/2017 Esophagitis, reflux 04/26/2017 Type 2 diabetes, uncontrolled, with neuropathy 04/26/2017 Hiatal hernia 02/21/2017 Arthritis of foot, degenerative 01/09/2017 Enlarged prostate with lower urinary tract symptoms (LUTS) 09/07/2016 Morbid obesity ([facility]) 08/12/2016 Shoulder pain, left 10/23/2014 Knee [...] of Care supervision is transferred to a [facility] Therapy Services Occupational Therapist. Goals and/or treatment plan was established in collaboration with patient/family/other representatives. [facility] [place] Progress note [phone]: Please page me ([phone]) for patient care issues. [phone]: Please page [facility] Hospitalist for any issues. Subjective: Admit Date: 07/15/2024 PCP: Chelle Troncoso MD Room#: [id number] B James Reyes is a 68 y.o. male who presents with Hematemesis James is a 68 y.o. male with past medical history below who presents with chief complaint dark vomit and coffee-ground emesis 2 times prior to admission to the ER, in the ER he did not have any episode, patient is from [facility] at [facility] , on review of records he is [...] hypercapnic, hypoxic respiratory failure, was [facility] to [facility] on 4 L of oxygen and prednisone [...] 1.0 CARDIAC ENZYMES: No results for input(s): TROPONINI in the last 72 hours. Procalcitonin: No results found for: PROCAL @RISRSLTSPECIALTY@ Objective: Vitals: BP 121/69 Pulse 74 [...] 8 mg/hr, Last Rate: 8 mg/hr (07/15/24 2125) sodium chloride, 100 mL/hr, Last Rate: 100 [...] Nightly mometasone-formoterol, 2 puff, Inhalation, BID pancrelipase (Yyp-Kwqm-Htql), 2 capsule, Oral, TID WC pregabalin, 150 [...] Facility - Pending the following -clinical improvement, industrial methods consultant recommendations Total time spent (which include [...] MD Division of Hospitalist Medicine [facility]patient Medical Services[place] Images from the original note were not included. PHYSICAL THERAPY [facility] Initial Evaluation Name/MRN: James Reyes ([id number]) Evaluation Date: 07/16/2024 Date of : 1955 Admission Date: 07/15/2024 11:38 AM Age: 68 y.o. Room/Bed: W4-237/C8-266 B Discharge Recommendation: Detention Facility Other: TBD at next level of [...] Acute kidney injury (HCC) 09/11/2015 CAD in [place] artery 08/08/2017 COPD (chronic obstructive pulmonary disease) [...] 08/08/2017 Hematemesis 07/15/2024 Acute hypercapnic respiratory failure ([facility]) 05/30/2024 Closed head injury, initial encounter 11/29/2023 Uncontrolled type 2 diabetes mellitus with hyperglycemia, with long-term current use of insulin ([facility]) 10/30/2017 Uncontrolled type 2 diabetes mellitus with complication, with long-term current use of insulin 10/25/2017 Pseudomonas aeruginosa infection 10/20/2017 Sternal wound dehiscence 10/20/2017 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 10/20/2017 Wound disruption, post-op, skin, initial encounter 10/16/2017 Dyslipidemia 08/08/2017 Knee osteoarthritis 08/08/2017 Insulin dependent diabetes mellitus 08/08/2017 MINERVA (obstructive sleep apnea) 08/08/2017 Tobacco abuse 08/08/2017 CAD in [place] artery 08/08/2017 Angina at rest ([facility]) 08/08/2017 Hypertensive heart disease 08/08/2017 COPD (chronic obstructive pulmonary disease) ([facility]) 08/08/2017 Chest pain 08/06/2017 Colitis, collagenous 06/15/2017 Anemia 05/23/2017 Gastroesophageal reflux disease without esophagitis 05/23/2017 Colitis 05/21/2017 Esophagitis, reflux 04/26/2017 Type 2 diabetes, uncontrolled, with neuropathy 04/26/2017 Hiatal hernia 02/21/2017 Arthritis of foot, degenerative 01/09/2017 Enlarged prostate with lower urinary tract symptoms (LUTS) 09/07/2016 Morbid obesity ([facility]) 08/12/2016 Shoulder pain, left 10/23/2014 Knee [...] of Care supervision is transferred to a [facility] Therapy Services Physical Therapist. Goals and/or treatment plan was established in collaboration with patient/family/other representatives. Patient declined smoking cessation counseling. Accepting of handout with contact information for future reference. documented in this encounter [facility] 07-17-2024 Plan of care note Problem: [...] maintained or improved Outcome: Adequate for Discharge [facility] 07-17-2024 Miscellaneous Notes Problem: Knowledge Deficit Goal: [...] call Endoscopy at 3956. [facility]! [facility] Name: James Reyes Procedure Date: 07/16/2024 10:45 AM Gender: Male Date of : 1955 Age: 68 Admit Type: Inpatient Note Status: Finalized Endoscopist: Jaret Blackwood DO, [id number] Procedure: Upper GI endoscopy Indications: Coffee-ground emesis [...] immediate complications. Procedure Code(s): --- Professional --- 37539, Esophagogastroduodenoscopy, flexible, transoral; with biopsy, single or multiple --- Technical --- 12527, Esophagogastroduodenoscopy, flexible, transoral; with biopsy, single or multiple Diagnosis Code(s): --- Professional --- K44.9, Diaphragmatic hernia without obstruction or gangrene K31.89, Other diseases of stomach and duodenum K92.0, Hematemesis --- Technical --- K44.9, Diaphragmatic hernia without obstruction or gangrene K31.89, Other diseases of stomach and duodenum K92.0, Hematemesis CPT copyright 2021 [employer]. All rights reserved. The codes documented in this report are preliminary and upon medical biller/coder review may be revised to meet current [...] Improved Outcome: Progressing Per careport, patient is care home and bedhold at [facility] and can return when medically stable. . Return referral placed in careport to [facility]. . documented in this encounter [facility] 07-17-2024 Note [facility] 07-17-2024 Hospital course Narrative Images from the original note were not included. [facility] [place]ist Discharge Summary James Reyes : 1955 [...] not have any episode, patient is from [facility] at [facility] , on review of records he is [...] hypercapnic, hypoxic respiratory failure, was [facility] to [facility] on 4 L of oxygen and prednisone [...] 1.0 CARDIAC ENZYMES: No results for input(s): TROPONINI in the last 72 hours. Procalcitonin: No results found for: PROCAL Urine Culture: Results for orders placed or [...] Commonly known as: Bentyl ergocalciferol 1.25 MG (66939 UT) capsule Commonly known as: Vitamin D-2 [...] nystatin cream Commonly known as: Mycostatin pancrelipase (Dqz-Filq-Ullg) 91079-77040 units capsule Commonly known as: Creon pregabalin [...] Your Medications These medications were sent to [facility] - [place], [place] - [address] [facility] [address], [place] [address] pantoprazole 40 MG EC tablet Recommended Follow-up: Viki Ball APRN - LOUNGE 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 [address], [address] [facility] [address] Go on 07/31/2024 Pulmonary hospital follow up at 1:40 PM Chelle Troncoso MD [address] [place] [phone] Follow up Hospital follow up Complexity of Follow up: [] Moderate Complexity: follow up within 7-14 calendar days (50194) [x] Severe Complexity: follow up within 7 calendar days (10955) Follow up Testing, Pending results or Referrals [...] MD Division of Hospitalist Medicine Inpatient Medical Services/[facility] 07/17/2024, 12:55 PM documented in this encounter [facility] 07-17-2024 Plan of care note Problem: Knowledge Deficit Goal: Patient/family/caregiver demonstrates understanding of disease process, treatment plan, medications, and discharge instructions Outcome: Progressing Problem: Potential for Compromised Skin Integrity Goal: Skin Integrity is Maintained or Improved Outcome: Progressing Goal: Nutritional status is improving Outcome: Progressing [facility] 07-17-2024 Nurse Note Wound Care consulted [...] ointment applied. Prevention Measures in place, including: Weems sheet (obtained) with pillows/wedges, Heels elevated off bed on pillows, Zinc/Moisture Barrier ointment (obtained and applied), Waffle chair cushion (obtain for pt once getting out of bed to chair). Skin Care precaution order set in place. Dietitian emissions testing technician involved. PT/OT consult in place. D/W nursing staff. Will continue to follow pt. Please secure chat for any questions or concerns. Kaycee Ricardo RN [facility] 07-17-2024 Nurse Note Wound Care consulted for [...] ointment applied. Prevention Measures in place, including: Weems sheet (obtained) with pillows/wedges, Heels elevated off bed on pillows, Zinc/Moisture Barrier ointment (obtained and applied), Waffle chair cushion (obtain for pt once getting out of bed to chair). Skin Care precaution order set in place. Dietitian emissions testing technician involved. PT/OT consult in place. D/W nursing staff. Will continue to follow pt. Please secure chat for any questions or concerns. Kaycee Ricardo RN documented in this encounter [facility] 07-16-2024 Consult note Associated Order (s): Inpatient [...] coffee-ground emesis. This reportedly happened twice at [facility] prior to arrival to the ED. [...] Acute kidney injury (HCC) 09/11/2015 CAD in [place] artery 08/08/2017 COPD (chronic obstructive pulmonary disease) [...] 07/18/2022 Performed by David Chen MD at [facility] OR CORONARY ARTERY BYPASS GRAFT FOOT [...] attack Mother 61.00 Heart disease Father Other ([id number]) Brother accident Coronary artery disease Father Diabetes [...] Nightly mometasone-formoterol, 2 puff, Inhalation, BID pancrelipase (Pjl-Uzes-Pzlw), 2 capsule, Oral, TID WC pregabalin, 150 [...] -- 194* Procal: No results for input(s): PROCAL in the last 72 hours. CBC: Recent [...] displayed. ABGs: Recent Labs 07/15/241710 PHART 7.313* QWS2EUP 46.3 PO2ART 70.1* PDP2OGM 22.9 Q6ECQTRX Nasal Cannula (LPM) Lactic Acid: No results for input(s): LACTATE in the last 72 hours. INR: Recent Labs 07/15/24 1158 07/16/24 0613 INR 1.1 1.0 Cardiac Injury Profile: No results for input(s): CKTOTAL, CKMB, TROPONINI in the last 72 hours. Labs in [...] COVID19 Legionella Ag: No results found for: LEGIONELLAPN Strep Ag: No results for input(s): STREPPNEUMO in the last 72 hours. Imaging- CXR [...] normal. Behavior: Behavior normal. Behavior is cooperative. [employer] Phone: 07-16-2024 Consult note Associated Order (s): [...] coffee-ground emesis. This reportedly happened twice at [facility] prior to arrival to the ED. [...] Acute kidney injury (HCC) 09/11/2015 CAD in [place] artery 08/08/2017 COPD (chronic obstructive pulmonary disease) [...] 07/18/2022 Performed by David Chen MD at [facility] OR CORONARY ARTERY BYPASS GRAFT FOOT [...] attack Mother 61.00 Heart disease Father Other ([id number]) Brother accident Coronary artery disease Father Diabetes [...] Nightly mometasone-formoterol, 2 puff, Inhalation, BID pancrelipase (Rpj-Sefq-Tlof), 2 capsule, Oral, TID WC pregabalin, 150 [...] -- 194* Procal: No results for input(s): PROCAL in the last 72 hours. CBC: Recent [...] ABGs: Recent Labs 07/15/24 1711 PHART 7.313* GIL5ANL 46.3 PO2ART 70.1* HUW3LMS 22.9 [id number] Nasal Cannula (LPM) Lactic Acid: No results for input(s): LACTATE in the last 72 hours. INR: Recent Labs 07/15/24 1158 07/16/24 0613 INR 1.1 1.0 Cardiac Injury Profile: No results for input(s): CKTOTAL, CKMB, TROPONINI in the last 72 hours. Labs in [...] COVID19 Legionella Ag: No results found for: LEGIONELLAPN Strep Ag: No results for input(s): STREPPNEUMO in the last 72 hours. Imaging- CXR [...] coffee-ground emesis x 2. Patient transferred from [facility] with 2 episodes of coffee-ground emesis. [...] Acute kidney injury (HCC) 09/11/2015 CAD in [place] artery 08/08/2017 COPD (chronic obstructive pulmonary disease) [...] attack Mother 61.00 Heart disease Father Other ([id number]) Brother accident Coronary artery disease Father Diabetes [...] No dose, route, or frequency recorded. pancrelipase, Vfb-Vise-Yntw, (Creon) 93001-32773 units capsule 3 times daily with meals [...] Bethany Sandhu MD, 1,000 mg at 07/16/24 09 albuterol (2.5 MG/3ML) 0.083% nebulizer solution 2.5 [...] IntraVENous, q6h PRN, Bethany Sandhu MD pancrelipase (Lqn-Vqkr-Cnfr) (Creon) 6000-14218 units per capsule 2 capsule, 2 capsule, [...] 07/16/2024 9:12 AM documented in this encounter [facility] 07-16-2024 Evaluation + Plan note POST ENDOSCOPY PROCEDURE TRANSFER REPORT Procedure completed: EGD Findings:See Dr Blackwood' Report Specimens obtained: Yes Medications administered: See Anesthesia Record Additional Info: No adverse events or complications. For additional Questions please call Endoscopy at 0429. Thank You! [facility] 07-16-2024 [facility] Name: James Reyes Procedure Date: 07/16/2024 10:45 AM Gender: Male Date of : 1955 Age: 68 Admit Type: Inpatient Note Status: Finalized Endoscopist: Jaret Blackwood DO, [id number] Procedure: Upper GI endoscopy Indications: Coffee-ground emesis [...] immediate complications. Procedure Code(s): --- Professional --- 15538, Esophagogastroduodenoscopy, flexible, transoral; with biopsy, single or multiple --- Technical --- 94883, Esophagogastroduodenoscopy, flexible, transoral; with biopsy, single or multiple Diagnosis Code(s): --- Professional --- K44.9, Diaphragmatic hernia without obstruction or gangrene K31.89, Other diseases of stomach and duodenum K92.0, Hematemesis --- Technical --- K44.9, Diaphragmatic hernia without obstruction or gangrene K31.89, Other diseases of stomach and duodenum K92.0, Hematemesis CPT copyright 2021 [employer]. All rights reserved. The codes documented in this report are preliminary and upon medical biller/coder review may be revised to meet current compliance requirements. Attending Participation: I personally performed the entire procedure. Jaret Blackwood DO 07/16/2024 11:48:32 AM This report has been signed electronically. Number of Addenda: 0 Note Initiated On: 07/16/2024 10:45 AM T [facility] 07-16-2024 Plan of care note Problem: Knowledge Deficit Goal: Patient/family/caregiver demonstrates understanding of disease process, treatment plan, medications, and discharge instructions Outcome: Progressing Problem: Potential for Compromised Skin Integrity Goal: Skin Integrity is Maintained or Improved Outcome: Progressing T [facility] 07-16-2024 Note Patient declined smo janey cessation counseling. Accepting of handout with contact information for future reference. [facility] Dial a Dealer [facility] 07-16-2024 Consult note Associated Order (s): [...] coffee-ground emesis x 2. Patient transferred from [facility] with 2 episodes of coffee-ground emesis. [...] Acute kidney injury (HCC) 09/11/2015 CAD in [place] artery 08/08/2017 COPD (chronic obstructive pulmonary disease) [...] 07/18/2022 Performed by David Chen MD at [facility] OR CORONARY ARTERY BYPASS GRAFT FOOT [...] attack Mother 61.00 Heart disease Father Other ([id number]) Brother accident Coronary artery disease Father Diabetes [...] No dose, route, or frequency recorded. pancrelipase, Gdn-Rqop-Pkfv, (Creon) 47009-92609 units capsule 3 times daily with meals [...] Bethany Sandhu MD, 80 mg at 07/16/24 09 carvedilol (Coreg) tablet 3.125 mg, 3.125 mg, [...] Bethany Sandhu MD, 1,250 mcg at 07/16/24 09 ezetimibe (Zetia) tablet 10 mg, 10 mg, Oral, Nightly, Bethany Sandhu MD, 10 mg at 07/15/24 2131 [...] Nightly, Bethany Sandhu MD, 2 Units at 07/15/243 mometasone-formoterol (Dulera 100) 100-5 MCG/ACT inhaler 2 puff, 2 puff, Inhalation, BID, Bethany Sandhu MD, 2 puff at 07/16/24 0903 nitroglycerin (Nitrostat) SL tablet 0.4 mg, 0.4 mg, SubLINGual, q5 min PRN, Bethany Sandhu MD ondansetron ODT (Zofran-ODT) disintegrating tablet 4 mg, 4 mg, Oral, q8h PRN OR ondansetron (Zofran) injection 4 mg, 4 mg, IntraVENous, q6h PRN, Bethany Sandhu MD pancrelipase (Jrc-Qqhe-Dcyn) (Creon) 6000-89748 units per capsule 2 capsule, 2 capsule, [...] by Jaret Blackwood DO 07/16/2024 9:12 AM [employer] Phone: 07-15-2024 Emergency department Note Patient taken to the floor via medic. [facility] 07-15-2024 Emergency department Note Patient taken to [...] Patient states that yesterday he vomited and they said it look like coffee grounds, and [...] much vision he is on. According to [facility] paperwork, he is on baby aspirin and no blood thinners. PMH includes esophageal reflux and gastritis and diabetes Nursing Notes were reviewed. Past Medical History: Diagnosis Date Acute kidney injury (HCC) 09/11/2015 CAD in [place] artery 08/08/2017 COPD (chronic obstructive pulmonary disease) [...] pel - do not believe this will private branch exchange service adviser. ED course: Diagnoses as of 07/15/24 1430 Hematemesis ED medications managed: Medications pantoprazole (ProtoNix) 40 mg in sodium chloride (PF) 0.9 % 10 mL injection (40 mg IntraVENous Given 07/15/24 1212) Chronic conditions and social determinants of health affecting care: COPD DISPOSITION/PLAN Admit 07/15/2024 01:32:16 PM Amanuel Parisi MD Emergency Medicine Amanuel Parisi MD 07/16/24 0816 Patient arrives from [facility] via ambulance due to coffee ground emesis twice. documented in this encounter [facility] 07-15-2024 Note Formatting of this n ote might be different from the original. [facility] and bedhold at [facility] and can return when medically stable. . [facility] 07-15-2024 Note Formatting of this n ote might be different from the original. [facility], [facility] is care home and bedhold at [facility] and can return when medically stable. . [facility] 07-15-2024 Hospital Discharge instructions Isael Ash RN [...] Contact Information Primary Emergency Contact: Sreekanth Reyes Swain Relation: Sibling Past Surgical History: Past Surgical History: Procedure Laterality Date CHOLECYSTECTOMY 03/29/20162010 COLONOSCOPY 05/23/2017 COLONOSCOPY 03/29/2016, repeat in 10 years, Dr. 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 Enlarged prostate with lower urinary tract symptoms (LUTS) Hypertensive heart disease Overview Signed 01/27/2022 12:43 PM by Interface, Incoming Problems- [facility] Conversion [facility]CHO [facility] 55% EF SHOWS HYPERTENSIVE HEART DISEASE COPD (chronic obstructive pulmonary disease) ([facility]) Overview Signed 01/27/2022 12:43 PM by Interface, Incoming Problems- [facility] Conversion PATIENT IS ON 2 LITER OF OXYGEN AND NOW IS SEEING DR ESTRADA WAS KSENIA TEJADA AND QUALIFED HOME OXYGEN 07/17/2015 Arthritis of [...] Total assistance Toileting Minimal assistance Feeding 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 Update Admission H&P: No change in H&P PHYSICIAN SIGNATURE: documented in this encounter [facility] 07-15-2024 Note Formatting of this n ote might be different from the original. Return referral placed in [facility]port to [facility]. . [facility] 07-15-2024 Note Formatting of this n ote might be different from the original. Return referral placed in careport to [facility]. . [facility] 07-15-2024 Note Return referral plac ed in [facility] to [facility]. . [facility] 07-15-2024 History and physical note Attending [...] not have any episode, patient is from [facility] at [facility] , on review of records he is [...] Acute kidney injury (HCC) 09/11/2015 CAD in [place] artery 08/08/2017 COPD (chronic obstructive pulmonary disease) [...] attack Mother 61.00 Heart disease Father Other ([id number]) Brother accident Coronary artery disease Father Diabetes [...] mouth daily. ergocalciferol (Vitamin D-2) 1.25 MG (92392 UT) capsule Take 1.25 mg by mouth [...] for chest pain. nystatin (Mycostatin) cream pancrelipase, Ade-Yotm-Jvty, (Creon) 56621-21833 units capsule Take by mouth 3 times [...] 1.1 CARDIAC ENZYMES: No results for input(s): TROPONINI in the last 72 hours. Procalcitonin: No results found for: PROCAL Urine Culture: Results for orders placed or [...] ug/ml COVID-19 PCR: No results for input(s): COVID19 in the last 72 hours. I reviewed: [...] Acute kidney injury (HCC) 09/11/2015 CAD in [place] artery 08/08/2017 COPD (chronic obstructive pulmonary disease) [...] studies Baseline ABG,, nocturnal pulse ox called [facility] and awaiting callback. Informed RN Possible sleep [...] - DO NOT do CPR, intubation] [_] [DNR-HOSPITAL EDUCATION COORDINATOR - Comfort care only] [_] DNR form [...] Bethany Sandhu MD Division of Hospitalist Medicine [facility] [employer] Phone: 07-15-2024 Note [facility] [facility] 07-15-2024 History and physical note Attending History [...] not have any episode, patient is from [facility] at [facility] , on review of records he is [...] Acute kidney injury (HCC) 09/11/2015 CAD in [place] artery 08/08/2017 COPD (chronic obstructive pulmonary disease) [...] 07/18/2022 Performed by David Chen MD at [facility] OR CORONARY ARTERY BYPASS GRAFT FOOT [...] attack Mother 61.00 Heart disease Father Other ([id number]) Brother accident Coronary artery disease Father Diabetes [...] mouth daily. ergocalciferol (Vitamin D-2) 1.25 MG (03214 UT) capsule Take 1.25 mg by mouth [...] for chest pain. nystatin (Mycostatin) cream pancrelipase, Hvn-Qrqc-Sphn, (Creon) 53270-97334 units capsule Take by mouth 3 times [...] 1.1 CARDIAC ENZYMES: No results for input(s): TROPONINI in the last 72 hours. Procalcitonin: No results found for: PROCAL Urine Culture: Results for orders placed or [...] ug/ml COVID-19 PCR: No results for input(s): COVID19 in the last 72 hours. I reviewed: [...] Acute kidney injury (HCC) 09/11/2015 CAD in [place] artery 08/08/2017 COPD (chronic obstructive pulmonary disease) [...] studies Baseline ABG,, nocturnal pulse ox called [facility] and awaiting callback. Informed RN Possible sleep [...] - DO NOT do CPR, intubation] [_] [DNR-HOSPITAL EDUCATION COORDINATOR - Comfort care only] [_] DNR form [...] Bethany Sandhu MD Division of Hospitalist Medicine Acute [facility] documented in this encounter [facility] 07-15-2024 Emergency department Triage note Patient arrives from [facility] via ambulance due to coffee ground emesis twice. [facility] 07-15-2024 Physician Emergency department Note Emergency Department Encounter Pt Name: James Reyes Birthdate 1955 Date of evaluation: 07/15/2024 Provider: Amanuel Parisi MD CHIEF COMPLAINT Chief Complaint Patient presents with Vomiting Blood HISTORY OF PRESENT ILLNESS HPI James Reyes is a 68 y.o. male brought to ED from nursing facility due to concern for bloody vomiting. Patient states that yesterday he vomited and they said it look like coffee grounds, and [...] much vision he is on. According to [facility] paperwork, he is on baby aspirin and no blood thinners. PMH includes esophageal reflux and gastritis and diabetes Nursing Notes were reviewed. Past Medical History: Diagnosis Date Acute kidney injury (HCC) 09/11/2015 CAD in [place] artery 08/08/2017 COPD (chronic obstructive pulmonary disease) [...] pel - do not believe this will private branch exchange service adviser. ED course: Diagnoses as of 07/15/24 1430 Hematemesis ED medications managed: Medications pantoprazole (ProtoNix) 40 mg in sodium chloride (PF) 0.9 % 10 mL injection (40 mg IntraVENous Given 07/15/24 1212) Chronic conditions and social determinants of health affecting care: COPD DISPOSITION/PLAN Admit 07/15/2024 01:32:16 PM Amanuel Parisi MD Emergency Medicine Amanuel Parisi MD 07/16/24 0816 [facility] 06-27-2024 History of Present illness Narrative UROJET 2% [facility] [id number] LOT [id number] EXP 05/16/2026 ADMINISTERED BY Nettie Carreon LPN [...] 06/27/24 11:55 AM documented in this encounter [facility] 06-04-2024 Nurse Note Nurse to nurse report given to Sj Cruz. [facility] 06-04-2024 Nurse Note Nurse to nurse report given to Sj Cruz. Attempted to wean patient to 2L NC. Patient sats dropped to 87%. 88-90% on 3L NC. Patient left on 4L NC at this time with continuous pulse ox showing 94%. Instructed to call out with any needs. documented in this encounter [facility] 06-04-2024 Hospital Discharge instructions Tish Diaz RN [...] 07/18/2022 Performed by David Chen MD at [facility] OR CORONARY ARTERY BYPASS GRAFT FOOT [...] current use of insulin (HCC) CAD in [place] artery Uncontrolled type 2 diabetes mellitus with complication, with long-term current use of insulin Pseudomonas aeruginosa infection Angina at rest (HCC) Sternal wound dehiscence [facility] (current) use of antibiotics Enlarged prostate with lower urinary tract symptoms (LUTS) Hypertensive heart disease Overview Signed 01/27/2022 12:43 PM by Interface, Incoming Problems- [facility] Conversion [facility] 55% EF SHOWS HYPERTENSIVE HEART DISEASE COPD (chronic obstructive pulmonary disease) (HCC) Overview Signed 01/27/2022 12:43 PM by Interface, Incoming Problems- [facility] Conversion PATIENT IS ON 2 LITER OF OXYGEN AND NOW IS SEEING DR ESTRADA WAS TESTED [facility] AND QUALIFED HOME OXYGEN 07/17/2015 Arthritis of [...] assistance Toileting minimal assistance Feeding Minimal assistance Landcare Officer Minimal assistance Med Delivery no Wound Care [...] Status Date: 05/30/24 Discharging to Facility/ Agency [facility] [address] [place] [address] Dialysis Facility (if applicable) Name: Address: Dialysis Schedule: Phone: Fax: Real Estate Acquisition Analyst/Quarry Supervisor Open Pit signature: ICIAN SECTION Name: James Reyes Prognosis: {Rehab Prognosis:28668} Condition at Discharge: {Patient Condition:65810} Rehab Potential (if transferring to Rehab): {Rehab Prognosis:20142} Recommended Labs or Other Treatments After Discharge: BiPAP 18 over 10 cm H2O with 4 L supplemental O2 bleed at at bedtime. Fullface mask size medium The individual is being admitted to a nursing facility directly from an [facility] or a unit of a [facility] that is not operated by or licensed [...] and that he requires {CRUZ Level of Care:19363} for {greater less than:82419} 30 days. Update Admission H&P: {CRUZ Changes in H&P:19826} PHYSICIAN SIGNATURE: {E-signature:13540} documented in this encounter [facility] 06-04-2024 Note Formatting of this n ote is different from the original. Images from the original note were not included. Updates DC order entered Confirmed pickup time of 4pm by [employer] [facility] notified Sreekanth Reyes brother notified [facility] 06-04-2024 Note Formatting of this n ote is different from the original. Images from the original note were not included. Updates DC order entered [facility] Sreekanth Reyes brother notified [facility] 06-04-2024 Miscellaneous Notes Images from the original note were not included. Updates DC order entered Confirmed pickup time of 4pm by [employer] [facility] [place] notified Sreekanth Reyes brother notified Confirmed pickup time of 4pm by transport company [employer] at phone number [phone]. Location of facility drop off is [facility]. Facility notified via [facility]port, TCC notified on secure chat. The BLS Vehicle you requested for James Mosley in unit/room [address] on 06/04/2024 is scheduled to arrive at 4:00pm EST! [facility] is handling this ride and you can contact them at . Transport requested 4pm cook pickled meat in Roundtrip. Awaiting time confirmation. Discharge med list transmitted to return back to [facility] via [employer] per TCC request. Problem: Knowledge Deficit Goal: [...] intake Outcome: Progressing Rounds this am Per [facility] communications: patient is LTC and [...] intake Outcome: Progressing Pt transferred out to [facility] service from icu. Problem: Knowledge Deficit Goal: [...] improved Outcome: Progressing Return referral placed to [facility] via Careport per TCC request. Await review and response regarding ability to accept. TCC notified. Inpatient status from [facility] with acute hypercapnic resp failure. Admitted to ICU for NIV. Currently requiring high flow oxygen 60% fio2 and 40 liters. Receiving iv antibiotics, iv steroids, scheduled aerosols, and ss insulin coverage. Did task GRADE TAMPER to place return referral careport to [facility]. Anticipated discharge plan is to return to [facility] when medically stable. Problem: Knowledge Deficit Goal: [...] patent Outcome: Progressing documented in this encounter [facility] 06-04-2024 Note Formatting of this n ote might be different from the original. Confirmed pickup time of 4pm by transport [employer] at phone number [phone]. Location of facility drop off is [facility]. Facility notified via Careport, TCC notified on secure chat. The [employer] Vehicle you requested for James Mosley in unit/room [place] [address] on 06/04/2024 is scheduled to arrive at 4:00pm EST! [facility] is handling this ride and you can contact them at . [facility] 06-04-2024 Note Formatting of this n ote might be different from the original. Confirmed pickup time of 4pm by transport [facility] at phone number [phone]. Location of facility drop off is [facility]. Facility notified via Careport, TCC notified on secure chat. The [employer] Vehicle you requested for James Mosley in unit/room [facility] B2-250 on 06/04/2024 is scheduled to arrive at 4:00pm EST! [facility] is handling this ride and you can contact them at . [facility] 06-04-2024 Note Formatting of this n ote might be different from the original. Transport requested 4pm cook pickled meat in Roundtrip. Awaiting time confirmation. [facility] 06-04-2024 Note Formatting of this n ote might be different from the original. Transport requested 4pm cook pickled meat in [employer]. Awaiting time confirmation. [facility] 06-04-2024 Note Formatting of this n ote might be different from the original. Discharge med list transmitted to return back to [facility] via Careport per TCC request. [employer] 06-04-2024 Note Formatting of this n ote might be different from the original. Discharge med list transmitted to return back to [facility] via [facility]port per TCC request. [facility] 06-04-2024 Note [facility] 06-04-2024 History of Present illness Narrative Images from the original note were not included. [facility], Pulmonary Critical Care and Sleep Medicine Patient - James Reyes, Age - 68 y.o. - 1955 Room Number - B2-250/B2-250 B Consulting - Manjinder Sanchez MD Primary Care Physician - Chelle Troncoso MD Date of Admission - 05/30/2024 8:35 AM [...] WC ipratropium-albuterol, 3 mL, Nebulization, TID pancrelipase (Dsy-Areu-Avmg), 1 capsule, Oral, TID WC pantoprazole, 40 [...] original note were not included. PHYSICAL THERAPY [facility] Treatment Note Name/MRN: James Reyes ([id number]) Date of : 1955 Age: 68 y.o. Room/Bed: B2-250/B2-250 B Visit #: 1 out of 5 visits Discharge Recommendation: Detention Facility Equipment Needed: (TBD by facility) Prior [...] Primary Care Physician - [phone] Date of Admission - 05/30/2024 8:35 AM Hospital Day - 4 Subjective/Events Past 24 hours/ROS Following for resp failure Awake, says his breathing is better, still some cough and sneezing Says he doesn't currently wear home O2, I weaned myself off of it Knows he has MINERVA, says he can't [...] TID mupirocin, 1 Application, Nasal, BID pancrelipase (Yfg-Xnwi-Vufz), 1 capsule, Oral, TID WC pantoprazole, 40 [...] MD Room#: B2-266/B2-266 A BRIEF HOSPITAL COURSE: 05/30James Reyes is a 68 y.o. male who presents to the emergency department from a snf facility for evaluation of nausea, vomiting, shortness [...] Acute kidney injury (HCC) 09/11/2015 CAD in [place] artery 08/08/2017 COPD (chronic obstructive pulmonary disease) [...] BMP: Recent Labs 06/01/24 0410 06/02/24 0154 06/03/24 0318 NA 133* 136 137 K 4.8 4.6 4.3 CL 105 106 105 CO2 22* 24 27 BUN 62* 50* 37* CREATININE 1.43* 1.20 1.03 GLUCOSE 253* 224* 203* CALCIUM 8.5* 8.3* 8.3* ANIONGAP 6 6 5 LIVER PROFILE: Recent Labs 06/03/24317 AST 14 ALT 10 BILITOT 0.2 ALKPHOS 56 PROT 5.1* PT/INR: No results for input(s): PROTIME, INR in the last 72 hours. CARDIAC ENZYMES: No results for input(s): TROPONINI in the last 72 hours. Procalcitonin: No results found for: PROCAL COVID-19 PCR: No results for input(s): COVID19 in the last 72 hours. Objective: Vitals: [...] TID mupirocin, 1 Application, Nasal, BID pancrelipase (Bel-Wqyk-Yzjz), 1 capsule, Oral, TID WC pantoprazole, 40 [...] the next 24-48 hours - Location - [facility]f Care Facility (Non-Skilled) - Pending the following - pulmonology clearance Total time spent (which include face to face and non face to face encounters) : minutes Toxic drug monitoring/narrow therapeutic index drug monitoring : # Drug name : # Route administered : # Method of monitoring : Extended Emergency Contact Information Primary Emergency Contact: Sreekanth Reyes Relation: Sibling PATRICIA Bonilla CNP Division of Hospitalist Medicine [facility] Respiratory Care Department Progress Note As [...] MD Room#: B2-266/B2-266 A BRIEF HOSPITAL COURSE: 05/30James Reyes is a 68 y.o. male who presents to the emergency department from a snf facility for evaluation of nausea, vomiting, shortness [...] Acute kidney injury (HCC) 09/11/2015 CAD in [place] artery 08/08/2017 COPD (chronic obstructive pulmonary disease) (HCC) Developmental disorder Diabetes mellitus (HCC) Esophageal reflux Gastritis see EGD on 03/29/2016 GERD (gastroesophageal reflux disease) Hyperlipidemia IBS (irritable bowel syndrome) Mixed Obesity Osteoarthritis Pain management Plantar fasciitis, bilateral Unspecified sleep apnea Urinary retention LABS: CBC: Recent Labs 05/31/2440406/01/2440906/02/24153 WBC 11.4* 9.1 7.5 RBC 3.41* 3.16* 3.11* HGB 9.8* 9.2* 8.9* HCT 33.8* 30.7* 29.6* MCV 99.1* 97.2 95.2 RDW 15.3* 15.4* 15.1* PLT 194 205 206 BMP: Recent Labs 05/31/2440406/01/2440906/02/24153 NA 139 133* 136 K 4.8 4.8 4.6 CL 111* 105 106 CO2 20* 22* 24 BUN 58* 62* 50* CREATININE 1.58* 1.43* 1.20 GLUCOSE 194* 253* 224* CALCIUM 8.1* 8.5* 8.3* ANIONGAP 8 6 6 LIVER PROFILE: Recent Labs 05/31/24404 AST 22 ALT 16 BILITOT 0.2 ALKPHOS 69 PROT 5.4* PT/INR: No results for input(s): PROTIME, INR in the last 72 hours. CARDIAC ENZYMES: No results for input(s): TROPONINI in the last 72 hours. Procalcitonin: Lab Results Component Value Date PROCAL 2.10 (H) 05/31/2024 COVID-19 PCR: No results for input(s): COVID19 in the last 72 hours. Objective: Vitals: [...] daily mupirocin, 1 Application, Nasal, BID pancrelipase (Iwd-Jtbc-Luim), 1 capsule, Oral, TID WC pantoprazole, 40 [...] Primary Emergency Contact: Sreekanth Reyes Relation: Sibling PATRICIA Bonilla CNP Division of Hospitalist Medicine [place] Images from the original note were not included. PHYSICAL THERAPY [facility] Initial Evaluation Name/MRN: James Reyes ([id number]) Evaluation Date: 06/01/2024 Date of : 1955 Admission Date: 05/30/2024 8:35 AM Age: 68 y.o. Room/Bed: 222-04/222-04 A Discharge Recommendation: Detention Facility Equipment Needed: (TBD by facility) Assessment [...] Acute kidney injury (HCC) 09/11/2015 CAD in [place] artery 08/08/2017 COPD (chronic obstructive pulmonary disease) [...] bowel syndrome) 08/08/2017 Acute hypercapnic respiratory failure ([facility]) 05/30/2024 Closed head injury, initial encounter 11/29/2023 Uncontrolled type 2 diabetes mellitus with hyperglycemia, with long-term current use of insulin ([facility]) 10/30/2017 Uncontrolled type 2 diabetes mellitus with complication, with long-term current use of insulin 10/25/2017 Pseudomonas aeruginosa infection 10/20/2017 Sternal wound dehiscence 10/20/2017 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 10/20/2017 Wound disruption, post-op, skin, initial encounter 10/16/2017 Dyslipidemia 08/08/2017 Knee osteoarthritis 08/08/2017 Insulin dependent diabetes mellitus 08/08/2017 MINERVA (obstructive sleep apnea) 08/08/2017 Tobacco abuse 08/08/2017 CAD in [place] artery 08/08/2017 Angina at rest ([facility]) 08/08/2017 Hypertensive heart disease 08/08/2017 COPD (chronic obstructive pulmonary disease) ([facility]) 08/08/2017 Chest pain 08/06/2017 Colitis, collagenous 06/15/2017 Anemia 05/23/2017 Gastroesophageal reflux disease without esophagitis 05/23/2017 Colitis 05/21/2017 Esophagitis, reflux 04/26/2017 Type 2 diabetes, uncontrolled, with neuropathy 04/26/2017 Hiatal hernia 02/21/2017 Arthritis of foot, degenerative 01/09/2017 Enlarged prostate with lower urinary tract symptoms (LUTS) 09/07/2016 Morbid obesity ([facility]) 08/12/2016 Shoulder pain, left 10/23/2014 Knee [...] events, decreased short term memory, and decreased remote computer terminal operator memory - Safety judgement: decreased awareness of [...] birthdate, when oriented to correct date, reports no one told me that. Reports year as 3029. Did [facility] as location after cueing, initially reported location as in bed. Vision: Not Assessed Hearing: normal Social/Functional History [...] to get feet on the floor. Reports they are on the floor! multiple times while neither foot was touching [...] Raw Score (No Stairs) : 7 JH-HLM -HL Score: Static standing (1 or more minutes) [...] of Care supervision is transferred to a [facility] Therapy Services Physical Therapist. Goals and/or treatment plan was established in collaboration with patient/family/other representatives. ICU Progress Note Name: James Reyes : 1955(68 y.o.) Date: 06/01/24 Team: MICU Attending: ANDRES Assessment and Plan: [...] encounter. Objective: Last Vitals: BP MAP 130/63 (05/31/24902) 82 (05/31/24902) Arterial BP MAP Temp 36.7 [...] muscle mass loss Fluid Accumulation: Mild Extremities Automation Analyst Strength: Not Performed Nutrition Assessment: Pt is a 68 y/o male admitted to [facility] with acute hypercapnic respiratory failure- admitted with vomiting coffee ground emesis and SOB. Pt came from [facility] s/p open heart procedure. Pt remains NPO [...] (kg): 135 kg Total Energy Requirements (kcals/day): 9283-2549 kcals (11-14 kcals/kg) Weight Used for Protein Requirements: [place] Weight in Kg Used for Protein Requirements: [...] (276#-05/12/23, 284#-03/08/24) % Weight Change (Calculated): 7.2 [place] Body Weight (lbs) (Calculated): 178 lbs [place] Body Weight (Kg) (Calculated): 81 kg % [place] Body Weight (Calculated): 166.3 % BMI (kg/m2) [...] soon to determine Alejandra Olivas RD Contact: *[phone] or via Secure Chat Vancomycin therapy has been discontinued by Dr. Haydee Willis on 30may2024. Thank you for the consult. Pharmacy signing off for vancomycin dosing. Henok Chang PharmD, Date: 05/30/24 Time: 6:10 PM Patient currently on NIV, smoking cessation counseling held at this time. documented in this encounter [facility] 06-04-2024 Note Patient currently of f unit, will attempt smoking cessation counseling at a later time. [facility] 06-04-2024 Plan of care note Problem: [...] Interventions Goal: Promote nutritional intake Outcome: Progressing [facility] 06-03-2024 Nurse Note Attempted to wean patient to 2L NC. Patient sats dropped to 87%. 88-90% on 3L NC. Patient left on 4L NC at this time with continuous pulse ox showing 94%. Instructed to call out with any needs. [facility] [employer] 06-03-2024 Note Formatting of this n ote might be different from the original. Rounds this am Per [facility] communications: patient is LTC and does have bedhold. No auth needed to return - just a time and any updates 96% on RA this am Updates: Attempted to wean patient to 2L NC. Patient sats dropped to 87%. 88-90% on 3L NC. Patient left on 4L NC [facility] 06-03-2024 Note Formatting of this n ote might be different from the original. Rounds this am Per [facility] communications: patient is LTC and does have bedhold. No auth needed to return - just a time and any updates 96% on RA this am Updates: Attempted to wean patient to 2L NC. Patient sats dropped to 87%. 88-90% on 3L NC. Patient left on 4L NC [facility] 06-03-2024 Plan of care note Problem: Knowledge [...] Interventions Goal: Promote nutritional intake Outcome: Progressing [facility] 06-02-2024 Consult note Formatting of th is note is different from the original. Images from the original note were not included. [facility], Pulmonary Medicine [address] [place] [address] [phone] Patient - James Reyes - 1955 Date of Admission - 05/30/2024 8:35 AM Date of evaluation - 06/02/2024 Room - [facility] A Hospital Day - 3 Consulting - Manjinder Sanchez MD Primary Care Physician - Chelle Troncoso MD Active Hospital Problem List Patient Active Problem List Diagnosis Shoulder pain, left Dyslipidemia Knee pain, bilateral Knee osteoarthritis Insulin dependent diabetes mellitus MINERVA (obstructive sleep apnea) Tobacco abuse Esophagitis, reflux Morbid obesity ([facility]) Type 2 diabetes, uncontrolled, with neuropathy Wound disruption, post-op, skin, initial encounter Uncontrolled type 2 diabetes mellitus with hyperglycemia, with long-term current use of insulin ([facility]) CAD in [place] artery Uncontrolled type 2 diabetes mellitus with complication, with long-term current use of insulin IBS (irritable bowel syndrome) Pseudomonas aeruginosa infection Angina at rest ([facility]) Sternal wound dehiscence [facility] (current) use of antibiotics Enlarged prostate with lower urinary tract symptoms (LUTS) Hypertensive heart disease COPD (chronic obstructive pulmonary disease) ([facility]) Arthritis of foot, degenerative Hiatal hernia Colitis Chest pain Anemia Colitis, collagenous Gastroesophageal reflux disease without esophagitis Closed head injury, initial encounter Acute hypercapnic respiratory failure ([facility]) Reason for Consult Respiratory failure on [...] Medical History: Diagnosis Date Acute kidney injury ([facility]) 09/11/2015 CAD in [place] artery 08/08/2017 COPD (chronic obstructive pulmonary disease) ([facility]) Developmental disorder Diabetes mellitus ([facility]) Esophageal reflux Gastritis see EGD on [...] 07/18/2022 Performed by David Chen MD at [facility] OR CORONARY ARTERY BYPASS GRAFT FOOT [...] attack Mother 61.00 Heart disease Father Other ([id number]) Brother accident Coronary artery disease Father Diabetes [...] daily mupirocin, 1 Application, Nasal, BID pancrelipase (Nxp-Myai-Wvbm), 1 capsule, Oral, TID WC pantoprazole, 40 [...] No dose, route, or frequency recorded. pancrelipase, Jvo-Thbz-Gtzv, (Creon) [id number] units capsule 3 times daily with meals [...] ml Output 3300 ml Net -1750 ml @[id number]@ Physical Exam General appearance: Sleepy easily awake [...] 22 INR PTT No results found for: PTT Cultures NTD Sleep History History of obstructive [...] note please contact the signing provider directly. [employer] Phone: 06-02-2024 Consult note Formatting of th is note is different from the original. Images from the original note were not included. [facility], Pulmonary Medicine [address] [place], [place] [phone] Patient - James Reyes - 1955 Date of Admission - 05/30/2024 8:35 AM Date of evaluation - 06/02/2024 Room - [facility] A Hospital Day - 3 Consulting - Manjinder Sanchez MD Primary Care Physician - Chelle Troncoso MD Active Hospital Problem List Patient Active Problem List Diagnosis Shoulder pain, left Dyslipidemia Knee pain, bilateral Knee osteoarthritis Insulin dependent diabetes mellitus MINERVA (obstructive sleep apnea) Tobacco abuse Esophagitis, reflux Morbid obesity ([facility]) Type 2 diabetes, uncontrolled, with neuropathy Wound disruption, post-op, skin, initial encounter Uncontrolled type 2 diabetes mellitus with hyperglycemia, with long-term current use of insulin ([facility]) CAD in [place] artery Uncontrolled type 2 diabetes mellitus with complication, with long-term current use of insulin IBS (irritable bowel syndrome) Pseudomonas aeruginosa infection Angina at rest ([facility]) Sternal wound dehiscence 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 [...] Acute kidney injury (HCC) 09/11/2015 CAD in [place] artery 08/08/2017 COPD (chronic obstructive pulmonary disease) [...] attack Mother 61.00 Heart disease Father Other ([id number]) Brother accident Coronary artery disease Father Diabetes [...] daily mupirocin, 1 Application, Nasal, BID pancrelipase (Qhe-Zjuq-Lbma), 1 capsule, Oral, TID WC pantoprazole, 40 [...] No dose, route, or frequency recorded. pancrelipase, Ahl-Rvxd-Ivgd, (Creon) [id number] units capsule 3 times daily with meals [...] Intake/Output Summary (Last 24 hours) at 06/02/2024 0952 Last data filed at 06/02/2024 0847 Gross per 24 hour Intake 1550 ml Output 3300 ml Net -1750 ml @[id number]@ Physical Exam General appearance: Sleepy easily awake [...] 22 INR PTT No results found for: PTT Cultures NTD Sleep History History of obstructive [...] creatinine, and vancomycin levels interfaced automatically to [email or web address] and data has been analyzed and interpreted. [...] Patient does not have Septic Shock. Haydee Willis, Analgesics: tylenol Sedation: no Pressors: no Vent: [...] Acute kidney injury (HCC) 09/11/2015 CAD in [place] artery 08/08/2017 COPD (chronic obstructive pulmonary disease) [...] 07/18/2022 Performed by David Chen MD at [facility] [facility] CORONARY ARTERY BYPASS GRAFT FOOT [...] attack Mother 61.00 Heart disease Father Other ([id number]) Brother accident Coronary artery disease Father Diabetes [...] Historical Provider, ergocalciferol (Vitamin D-2) 1.25 MG (45561 UT) capsule Take 1.25 mg by mouth 1 (one) time per week. Every Monday Historical Provider, ezetimibe (Zetia) 10 MG tablet Take 10 mg by mouth Nightly. 08/26/21 Historical ProviderMD famotidine (Pepcid) 20 MG tablet Take 20 mg by mouth in the morning. 08/26/21 Historical Provider, finasteride (Proscar) 5 MG tablet [...] nystatin (Mycostatin) cream 11/08/22 Historical Provider, pancrelipase, Tgi-Ztqz-Uxsq, (Creon) 84988-30633 units capsule Take by mouth 3 times [...] Patient not taking: Reported on 05/13/2024 Historical ProviderMD Objective: VITALS: BP 110/61 (BP Location: Left [...] 1.28* CALCIUM 7.8* LFTS:No results for input(s): AST, ALT, PROT, BILITOT, ALKPHOS, LIPASE in the last 72 hours. No lab exists for component: LABALBU, BU Glucose: Recent Labs 05/30/24 0914 GLUCOSE 284* Procal: No results for input(s): PROCAL in the last 72 hours. CBC: Recent Labs 05/30/24 0914 05/30/24 0937 WBC 14.1* -- HGB 10.6* 11.3* HCT 34.7* -- PLT 190 -- MCV 94.8 -- RDW 15.5* -- ABGs: Recent Labs 05/30/24 0937 PHART 7.290* OSG2ATW 50.7* PO2ART 64.1* ZEM2QFN 23.8 [id number] 89.5* Lactic Acid: No lab exists for component: LACTA INR: No results for input(s): INR in the last 72 hours. Cardiac Injury Profile: No results for input(s): CKTOTAL, CKMB, TROPONINI in the last 72 hours. Labs in Last 3 months: Lab Results Component Value Date TSH 1.209 11/30/2023 VITD25 24 (L) 12/02/2023 INR 1.0 11/29/2023 Microbiology- Urine Cx: No components found for: LABURIN Blood Cx: No components found for: BC Sputum Cx: No components found for: RESPCULTURE Gram Stain: No results found for: LABGRAM PNA PCR: No components found for: PNPCRPNL COVID19: No results found for: COVID19 Legionella Ag: No components found for: LEGIONELLAANTIGEN Strep Ag: No lab exists for component: STREPNEUMAGU Imaging- Reviewed in PACS CRITICAL CARE TIME - 35min Total time caring for this patient including direct patient contact, review of data including imaging and labs, discussions with other team members and physicians, excluding procedures. documented in this encounter [facility] 06-02-2024 Telephone encounter Note Name of Caller: [facility] Physician requesting Consult: Laura Patient Location (facility name, room, bed number): [facility] Patient Diagnosis/Reason for Consult: Respiratory Failure on Bipap Provider being paged: James Time page was sent: 7:12 Department of provider being paged: Pulmonology Page Content: Inpatient Pulmonary [facility] resp failure on bipap Message sent via Secure Chat [facility] 06-02-2024 Miscellaneous Notes Name of Caller: [facility] Physician requesting Consult: Laura Patient Location (facility name, room, bed number): [facility] Patient Diagnosis/Reason for Consult: Respiratory Failure on Bipap Provider being paged: James Time page was sent: 7:12 Department of provider being paged: Pulmonology Page Content: Inpatient Pulmonary [facility] resp failure on bipap Message sent via Secure Chat documented in this encounter [employer] 06-02-2024 Note Formatting of this n ote might be different from the original. Pt transferred out to [facility] service from icu. [employer] Phone: 06-02-2024 Note Formatting of this n ote might be different from the original. Pt transferred out to [facility] service from icu. [employer] Phone: 06-02-2024 Plan of care note Problem: [...] Interventions Goal: Promote nutritional intake Outcome: Progressing [employer] 06-01-2024 Plan of care note Problem: Knowledge [...] Interventions Goal: Promote nutritional intake Outcome: Progressing [facility] 06-01-2024 Note Problem: Potential f or Compromised Skin Integrity Goal: Nutritional status is improving Outcome: Progressing Problem: Urinary Incontinence Goal: Perineal skin integrity is maintained or improved Outcome: Progressing [facility] 06-01-2024 Plan of care note Problem: Potential for Compromised Skin Integrity Goal: Nutritional status is improving Outcome: Progressing Problem: Urinary Incontinence Goal: Perineal skin integrity is maintained or improved Outcome: Progressing [facility] 05-31-2024 Note Formatting of this n ote might be different from the original. Return referral placed to [facility] via [facility] per TCC request. Await review and response regarding ability to accept. TCC notified. [facility] 05-31-2024 Note Formatting of this n ote might be different from the original. Return referral placed to [facility] via [facility] per TCC request. Await review and response regarding ability to accept. TCC notified. [facility] 05-31-2024 Note Return referral plac ed to [facility] via [facility] per TCC request. Await review and response regarding ability to accept. TCC notified. [facility] 05-31-2024 Note Formatting of this n ote might be different from the original. Inpatient status from [facility] with acute hypercapnic resp failure. Admitted to ICU for NIV. Currently requiring high flow oxygen 60% fio2 and 40 liters. Receiving iv antibiotics, iv steroids, scheduled aerosols, and ss insulin coverage. Did task GRADE TAMPER to place return referral careport to [facility]. Anticipated discharge plan is to return to [facility] when medically stable. [facility] 05-31-2024 Note Formatting of this n ote might be different from the original. Inpatient status from [facility] with acute hypercapnic resp failure. Admitted to ICU for NIV. Currently requiring high flow oxygen 60% fio2 and 40 liters. Receiving iv antibiotics, iv steroids, scheduled aerosols, and ss insulin coverage. Did task GRADE TAMPER to place return referral careport to [facility]. Anticipated discharge plan is to return to [facility] when medically stable. [facility] 05-31-2024 Plan of care note Problem: [...] Goal: Urinary catheter remains patent Outcome: Progressing [facility] 05-30-2024 Note Patient currently on NIV, smoking cessation counseling held at this time. [facility] 05-30-2024 History and physical note CCM consult on 05/30/24 serves as H&P [facility] 05-30-2024 Note CCM consult on 05/30 serves as H&P [facility] 05-30-2024 History and physical note CCM consult on 05/30/24 serves as H&P documented in this encounter [facility] 05-30-2024 Consult note Formatting of th is [...] creatinine, and vancomycin levels interfaced automatically to [email or web address] and data has been analyzed and interpreted. [...] Gasca RPh Pharmacist Available via Secure Chat -[facility] [employer] 05-30-2024 Emergency department Note Report given to FINISHER MAP AND CHART [facility] [employer] 05-30-2024 Emergency department Note Report given to FINISHER MAP AND CHART [facility] INTENSIVE CARE UNIT ICU 2 EMERGENCY DEPARTMENT [...] in via squad he has been at [facility] since having open heart. He is normally not on oxygen. HPI Historian is patient Nurse's notes for past medical history, surgical history, social history were reviewed. Medications and allergies reviewed. PAST MEDICAL HISTORY Past Medical History: Diagnosis Date Acute kidney injury (HCC) 09/11/2015 CAD in [place] artery 08/08/2017 COPD (chronic obstructive pulmonary disease) [...] 07/18/2022 Performed by David Chen MD at [facility] OR CORONARY ARTERY BYPASS GRAFT FOOT [...] mouth daily. ergocalciferol (Vitamin D-2) 1.25 MG (17984 UT) capsule Take 1.25 mg by mouth [...] for chest pain. nystatin (Mycostatin) cream pancrelipase, Hdc-Kgpa-Sbyb, (Creon) 10722-98045 units capsule Take by mouth 3 times [...] attack Mother 61.00 Heart disease Father Other ([id number]) Brother accident Coronary artery disease Father Diabetes [...] 247 (*) Narrative: Performed by: [facility], [address] [place] [id number] CLIA ID: [id number] SARS-COV-2, FLU A/B, AND RSV COMBO - [...] In compliance with this authorization, please visit www.fda.gov/media/516011/download or www.fda.gov/media/277452/download to access the applicable information sheets. LACTIC [...] Procedure Abnormality Status --------- ------ Legionella and Streptoco...[[id number]] Urine Hold Cup[[id number]] Please view results for these tests on the individual orders. MRSA BY PCR LEGIONELLA AND STREPTOCOCCUS URINE ANTIGEN BLOOD GAS ARTERIAL HIGH SENSITIVITY TROPONIN, SERIAL, THIRD TEST COMPLETE URINALYSIS WITH REFLEX TO CULTURE Narrative: The following orders were created for panel order Complete Urinalysis with reflex to Culture. Procedure Abnormality Status --------- ------ Complete Urinalysis[[id number]] Please view results for these tests on [...] (has no administration in time range) pancrelipase (Xek-Stoq-Hnxn) (Creon) 62528-426086 units per capsule 1 capsule (has no [...] specified. DISCHARGE MEDICATIONS: Current Discharge Medication List @[facility]([id number]:LAST:1)@ (Comment: Please notethis report has been produced [...] 1312 EMERGENCY DEPARTMENT ENCOUNTER Pt Name: James eRyes Birthdate 1955 Date of evaluation: 05/30/2024 ED Provider: Jerri Us PA-C CHIEF COMPLAINT Chief Complaint Patient presents with Vomiting Shortness of Breath HISTORY OF PRESENT ILLNESS (Location/Symptom, Timing/Onset, Context/Setting, Quality, Duration, Modifying Factors, Severity) Note limiting factors. I wore appropriate PPE for the entirety of this encounter. HPI James Reyes is a 68 y.o. male who presents to the emergency department from a snf facility for evaluation of nausea, vomiting, shortness [...] Acute kidney injury (HCC) 09/11/2015 CAD in [place] artery 08/08/2017 COPD (chronic obstructive pulmonary disease) [...] 07/18/2022 Performed by David Chen MD at [facility] OR CORONARY ARTERY BYPASS GRAFT FOOT [...] mouth daily. ergocalciferol (Vitamin D-2) 1.25 MG (22881 UT) capsule Take 1.25 mg by mouth [...] for chest pain. nystatin (Mycostatin) cream pancrelipase, Sqc-Atyb-Cwze, (Creon) 00214-64885 units capsule Take by mouth 3 times daily (with meals). tiotropium (Spiriva) [address] 1 capsule into inhaler and inhale in the morning. 2 puffs. ALLERGIES Penicillins and Tetracyclines & related FAMILY HISTORY Family History Problem Relation Name Age of Onset Heart attack Mother 61.00 Heart disease Father Other ([id number]) Brother accident Coronary artery disease Father Diabetes [...] Response: Oriented Best Motor Response: Follows commands [place] Coma Scale Score: 15 PHYSICAL EXAM ED [...] Abnormal Glucose 247 (*) Narrative: Performed by: [facility], [address] [place] [address] CLIA ID: [id number] SARS-COV-2, FLU A/B, AND RSV COMBO - [...] In compliance with this authorization, please visit www.fda.gov/media/283417/download or www.fda.gov/media/156786/download to access the applicable information sheets. BLOOD [...] Procedure Abnormality Status --------- ------ Legionella and Streptoco...[[id number]] Urine Hold Cup[[id number]] Please view results for these tests on the individual orders. MRSA BY PCR LEGIONELLA AND STREPTOCOCCUS URINE ANTIGEN COMPLETE URINALYSIS WITH REFLEX TO CULTURE Narrative: The following orders were created for panel order Complete Urinalysis with reflex to Culture. Procedure Abnormality Status --------- ------ Complete Urinalysis[[id number]] Please view results for these tests on [...] (150 mg Oral Given 05/30/24 1353) pancrelipase (Kpx-Ihav-Glup) (Creon) 25020-017801 units per capsule 1 capsule (1 capsule [...] given steroids and breathing treatments placed on registered nurse cardiac. nursing notes and medical records reviewed, PMH of CAD, stable angina, IBS, HLD, type 2 diabetes, HTN, COPD. Differential considerations included electrolyte derangement versus ACS versus MS versus PE versus pneumonia versus acidosis Initial [...] PM EST Pt arrived via EMS from [facility]. Co coffee ground emesis upon arrival EMS noted 70% SpO2.EMS placed nasal cannula at 4L. Noted 80%. Moved to NRB at 90% SPO2. EMS placed line and 1 breathing tx . Placed in bed. Provider and EKG at bedside. Vials assessed. Continue with plan of care. documented in this encounter [facility] 05-30-2024 Consult note Formatting of th is [...] Patient does not have Septic Shock. Haydee Willis, Analgesics: tylenol Sedation: no Pressors: no Vent: [...] Acute kidney injury (HCC) 09/11/2015 CAD in [place] artery 08/08/2017 COPD (chronic obstructive pulmonary disease) [...] 07/18/2022 Performed by David Chen MD at [facility] OR CORONARY ARTERY BYPASS GRAFT FOOT [...] attack Mother 61.00 Heart disease Father Other ([id number]) Brother accident Coronary artery disease Father Diabetes [...] nebulizer solution Inhale 2.5 mg. 07/28/21 Historical ProviderMD albuterol 108 (90 Base) MCG/ACT inhaler Inhale [...] Historical Provider, ergocalciferol (Vitamin D-2) 1.25 MG (62742 UT) capsule Take 1.25 mg by mouth 1 (one) time per week. Every Monday Historical Provider, ezetimibe (Zetia) 10 MG tablet Take 10 [...] nystatin (Mycostatin) cream 11/08/22 Historical Provider, pancrelipase, Pli-Vuxd-Xbgg, (Creon) 86387-98772 units capsule Take by mouth 3 times [...] 1.28* CALCIUM 7.8* LFTS:No results for input(s): AST, ALT, PROT, BILITOT, ALKPHOS, LIPASE in the last 72 hours. No lab exists for component: LABALBU, BU Glucose: Recent Labs 05/30/24 0914 GLUCOSE 284* Procal: No results for input(s): PROCAL in the last 72 hours. CBC: Recent Labs 05/30/2414 05/30/24 0937 WBC 14.1* -- HGB 10.6* 11.3* HCT 34.7* -- PLT 190 -- MCV 94.8 -- RDW 15.5* -- ABGs: Recent Labs 05/30/24 0937 PHART 7.290* CPV8NXG 50.7* PO2ART 64.1* OVL9THR 23.8 [id number] 89.5* Lactic Acid: No lab exists for component: LACTA INR: No results for input(s): INR in the last 72 hours. Cardiac Injury Profile: No results for input(s): CKTOTAL, CKMB, TROPONINI in the last 72 hours. Labs in Last 3 months: Lab Results Component Value Date TSH 1.209 11/30/2023 VITD25 24 (L) 12/02/2023 INR 1.0 11/29/2023 Microbiology- Urine Cx: No components found for: LABURIN Blood Cx: No components found for: BC Sputum Cx: No components found for: RESPCULTURE Gram Stain: No results found for: LABGRAM PNA PCR: No components found for: PNPCRPNL COVID19: No results found for: COVID19 Legionella Ag: No components found for: LEGIONELLAANTIGEN Strep Ag: No lab exists for component: STREPNEUMAGU Imaging- Reviewed in PACS CRITICAL CARE TIME - 35min Total time caring for this patient including direct patient contact, review of data including imaging and labs, discussions with other team members and physicians, excluding procedures. -[facility] 05-30-2024 Emergency department Triage note Pt arrived via EMS from [facility]. Co coffee ground emesis upon arrival EMS noted 70% SpO2.EMS placed nasal cannula at 4L. Noted 80%. Moved to NRB at 90% SPO2. EMS placed line and 1 breathing tx . Placed in bed. Provider and EKG at bedside. Vials assessed. Continue with plan of care. -[facility] 05-30-2024 Physician Emergency department Note [facility] INTENSIVE CARE UNIT ICU 2 EMERGENCY DEPARTMENT ENCOUNTER Pt Name: Jaems Reyes Birthdate 1955 Date of evaluation: 05/30/2024 [...] in via squad he has been at [facility] since having open heart. He is normally not on oxygen. HPI Historian is patient Nurse's notes for past medical history, surgical history, social history were reviewed. Medications and allergies reviewed. PAST MEDICAL HISTORY Past Medical History: Diagnosis Date Acute kidney injury (HCC) 09/11/2015 CAD in [place] artery 08/08/2017 COPD (chronic obstructive pulmonary disease) [...] mouth daily. ergocalciferol (Vitamin D-2) 1.25 MG (88567 UT) capsule Take 1.25 mg by mouth [...] for chest pain. nystatin (Mycostatin) cream pancrelipase, Ohn-Caxb-Coch, (Creon) 94872-13761 units capsule Take by mouth 3 times [...] attack Mother 61.00 Heart disease Father Other ([id number]) Brother accident Coronary artery disease Father Diabetes [...] 247 (*) Narrative: Performed by: [facility], [address] [place] [id number] CLIA ID: [id number] SARS-COV-2, FLU A/B, AND RSV COMBO - [...] In compliance with this authorization, please visit www.fda.gov/media/228144/download or www.fda.gov/media/514093/download to access the applicable information sheets. LACTIC [...] Procedure Abnormality Status --------- ------ Legionella and Streptoco...[[id number]] Urine Hold Cup[[id number]] Please view results for these tests on the individual orders. MRSA BY PCR LEGIONELLA AND STREPTOCOCCUS URINE ANTIGEN BLOOD GAS ARTERIAL HIGH SENSITIVITY TROPONIN, SERIAL, THIRD TEST COMPLETE URINALYSIS WITH REFLEX TO CULTURE Narrative: The following orders were created for panel order Complete Urinalysis with reflex to Culture. Procedure Abnormality Status --------- ------ Complete Urinalysis[[id number]] Please view results for these tests on [...] (has no administration in time range) pancrelipase (Kpt-Mbue-Lduh) (Creon) 18295-491217 units per capsule 1 capsule (has no [...] specified. DISCHARGE MEDICATIONS: Current Discharge Medication List @[facility]([id number]:LAST:1)@ (Comment: Please notethis report has been produced [...] Emergency Physician Arsh Mar MD 05/30/24 1312 [facility] 05-30-2024 Physician Emergency department Note EMERGENCY DEPARTMENT [...] presents to the emergency department from a snf facility for evaluation of nausea, vomiting, shortness [...] Acute kidney injury (HCC) 09/11/2015 CAD in [place] artery 08/08/2017 COPD (chronic obstructive pulmonary disease) [...] 07/18/2022 Performed by David Chen MD at [facility] OR CORONARY ARTERY BYPASS GRAFT FOOT [...] mouth daily. ergocalciferol (Vitamin D-2) 1.25 MG (07420 UT) capsule Take 1.25 mg by mouth [...] for chest pain. nystatin (Mycostatin) cream pancrelipase, Dts-Nxmb-Icol, (Creon) 89993-54876 units capsule Take by mouth 3 times daily (with meals). tiotropium (Spiriva) [address] 1 capsule into inhaler and inhale in the morning. 2 puffs. ALLERGIES Penicillins and Tetracyclines & related FAMILY HISTORY Family History Problem Relation Name Age of Onset Heart attack Mother 61.00 Heart disease Father Other ([id number]) Brother accident Coronary artery disease Father Diabetes [...] Homeless in the Last Year: No SCREENINGS [place] Coma Scale Best Eye Response: Spontaneous Best Verbal Response: Oriented Best Motor Response: Follows commands [place] Coma Scale Score: 15 PHYSICAL EXAM ED [...] 247 (*) Narrative: Performed by: [facility], [address] [place] [id number] CLIA ID: [id number] SARS-COV-2, FLU A/B, AND RSV COMBO - [...] In compliance with this authorization, please visit www.fda.gov/media/682341/download or www.fda.gov/media/294633/download to access the applicable information sheets. BLOOD [...] Procedure Abnormality Status --------- ------ Legionella and Streptoco...[[id number]] Urine Hold Cup[[id number]] Please view results for these tests on the individual orders. MRSA BY PCR LEGIONELLA AND STREPTOCOCCUS URINE ANTIGEN COMPLETE URINALYSIS WITH REFLEX TO CULTURE Narrative: The following orders were created for panel order Complete Urinalysis with reflex to Culture. Procedure Abnormality Status --------- ------ Complete Urinalysis[[id number]] Please view results for these tests on the individual orders. URINE HOLD CUP COMPLETE URINALYSIS All other labs were within normal range or not returned as of this dictation. EMERGENCY DEPARTMENT COURSE and DIFFERENTIAL DIAGNOSIS/MDM: Vitals: Vitals: 05/30/24 1300 05/30/24 1400 05/30/24 1500 05/30/24 1600 BP: 97/65 113/64 108/62 116/63 BP Location: Patient Position: Pulse: 98 90 98 92 Resp: Temp: TempSrc: SpO2: 99% 94% 97% 95% [...] (150 mg Oral Given 05/30/24 1353) pancrelipase (Voq-Nrij-Dwxe) (Creon) 16248-442449 units per capsule 1 capsule (1 capsule [...] given steroids and breathing treatments placed on registered nurse cardiac. nursing notes and medical records reviewed, PMH of CAD, stable angina, IBS, HLD, type 2 diabetes, HTN, COPD. Differential considerations included electrolyte derangement versus ACS versus MS versus PE versus pneumonia versus acidosis Initial [...] Mar MD at 05/30/2024 5:23 PM EST [employer] Work Phone: 05-13-2024 History of Present illness [...] but He can't make it in time. I'm tired of wetting my pants. Urinary Frequency Unable to give a urine [...] Acute kidney injury (HCC) 09/11/2015 CAD in [place] artery 08/08/2017 COPD (chronic obstructive pulmonary disease) (HCC) Developmental disorder Diabetes mellitus (HCC) Esophageal reflux Gastritis see EGD on 03/29/2016 GERD (gastroesophageal reflux disease) Hyperlipidemia IBS (irritable bowel syndrome) Mixed Obesity Osteoarthritis Pain management Plantar fasciitis, bilateral Unspecified sleep apnea Urinary retention Past Surgical History: Past Surgical History: Procedure Laterality Date CHOLECYSTECTOMY 03/29/20162010 COLONOSCOPY 05/23/2017 COLONOSCOPY 03/29/2016, repeat in 10 years, Dr. Grover, normal except internal hemorrhoid COLONOSCOPY N/A 07/18/2022 [...] Historical Provider, ergocalciferol (Vitamin D-2) 1.25 MG (61020 UT) capsule Take 1.25 mg by mouth 1 (one) time per week. Every Monday Yes Historical Provider, ezetimibe (Zetia) 10 MG tablet Take 10 mg by mouth Nightly. 08/26/21 Yes Historical Provider, famotidine (Pepcid) 20 MG tablet Take 20 mg by mouth in the morning. 08/26/21 Yes Historical Provider, finasteride (Proscar) 5 MG tablet Take 5 mg by mouth in the morning. 08/26/21 Yes Historical Provider, fluticasone (Flonase) 50 MCG/ACT nasal [...] skin in the morning. 08/26/21 Yes Historical Provider, Insulin Lispro (Humalog) 100 UNIT/ML solution injection Inject 16 Units under the skin in the morning and 16 Units at noon and 16 Units in the evening. 08/26/21 Yes Historical Provider, Menthol, Topical Analgesic, (Biofreeze Cool [...] (Mycostatin) cream 11/08/22 Yes Historical Provider, pancrelipase, Tel-Tglz-Flxq, (Creon) 76021-67218 units capsule Take by mouth 3 times daily (with meals). Yes Historical Provider, pregabalin (Lyrica) 150 MG capsule Take 1 capsule (150 mg) by mouth 2 times daily. 12/05/23 Yes Romario Munoz MD tamsulosin (Flomax) 0.4 MG 24 hr capsule Take 0.4 mg by mouth daily. 05/21/20 Yes Historical ProviderMD tiotropium (Spiriva) 18 MCG inhalation [...] attack Mother 61.00 Heart disease Father Other ([id number]) Brother accident Coronary artery disease Father Diabetes Father VITALS: BP 100/50 (BP Location: Right arm, Patient Position: Sitting, BP Cuff Size: Large adult) Pulse 68 Ht 6' 1 (1.854 m) Wt 300 lb (136 kg) [...] normal. DATA: LABS: No results found for: PSAFREE, PSAFREEPCT No results for input(s): PSAFREE, PSAFREEPCT in the last 72 hours. No results [...] CREATININE 1.01 03/08/2024 No components found for: LABURIN @LASTPROCPOC@ Radiology Review: Impression: Diagnosis Plan 1. [...] PVR: 122 mL documented in this encounter [facility] 05-02-2024 Note Aydee from [facility] in [place] called to schedule the patient an appt for incontinence and frequency. They will fax over a referral and notes for the pt. Appt scheduled 05/13/[address] Marino in [place]. [facility] 05-02-2024 Telephone encounter Note Aydee from [facility] in [place] called to schedule the patient an appt for incontinence and frequency. They will fax over a referral and notes for the pt. Appt scheduled 05/13/[address] Marino in [place]. [facility] 05-02-2024 Miscellaneous Notes Aydee from [facility] in [place] called to schedule the patient an appt for incontinence and frequency. They will fax over a referral and notes for the pt. Appt scheduled 05/13/[address] Marino in [place]. documented in this encounter [facility] 03-08-2024 History of Present illness Narrative Images from the original note were not included. [facility] [address] [address] Dept: [phone] Dept Visit type: Established : 1955 Reason for Visit: 6 Month Follow-up Assessment and Plan Coronary artery disease involving coronary bypass graft of [place] heart with chest pain. Bypass surgery in [...] mouth daily. ergocalciferol (Vitamin D-2) 1.25 MG (83994 UT) capsule Take 1.25 mg by mouth [...] for chest pain. nystatin (Mycostatin) cream pancrelipase, Pru-Hiwn-Zaud, (Creon) 34298-04328 units capsule Take by mouth 3 times [...] Acute kidney injury (HCC) 09/11/2015 CAD in [place] artery 08/08/2017 COPD (chronic obstructive pulmonary disease) [...] attack Mother 61.00 Heart disease Father Other ([id number]) Brother accident Coronary artery disease Father Diabetes [...] PATRICIA Mills CNP documented in this encounter [facility] 03-08-2024 Instructions PATRICIA Mills CNP - 03/08/2024 [...] ( low- to moderate grade) Office number [phone] documented in this encounter [facility] 12-05-2023 Hospital course Narrative Images from the [...] Acute kidney injury (HCC) 09/11/2015 CAD in [place] artery 08/08/2017 COPD (chronic obstructive pulmonary disease) [...] Pt was walking with his rollator [facility] go get [facility]. Pt lost his [...] (97.3 F) (Temporal) Resp 18 Ht 6' 2 (1.88 m) Wt 279 lb (127 kg) [...] Commonly known as: Bentyl ergocalciferol 1.25 MG (33780 UT) capsule Commonly known as: Vitamin D-2 [...] nystatin cream Commonly known as: Mycostatin pancrelipase (Cbk-Kthw-Hhvq) 58024-41358 units capsule Commonly known as: Creon pregabalin [...] Your Medications These medications were sent to [facility] - [place], [place] - [address], [place] [address] cefdinir 300 MG capsule You can get these medications from any pharmacy Bring a paper prescription for each of these medications pregabalin 150 MG capsule Recommended Follow-up: No follow-up provider specified. Complexity of Follow up: [] Moderate Complexity: follow up within 7-14 calendar days (93331) [x] Severe Complexity: follow up within 7 calendar days (83877) Follow up Testing, Pending results or Referrals [...] MD Division of Hospitalist Medicine [facility]/05/2023, 4:56 PM documented in this encounter [facility] 12-05-2023 Note [facility] 12-05-2023 History of Present illness Narrative Images from the original note were not included. PHYSICAL THERAPY [facility] Name/MRN: Jamse Reyes ([id number]) Date: 12/05/2023 Attempted treatment at 1201, pt sitting EOB, stating that he is going to [facility] later today, politely declining therapy at this time. Benjie Torres PT Images from the original note were not included. PHYSICAL THERAPY [facility] Name/MRN: James Reyes ([id number]) Date: 12/04/2023 Attempted PT. Pt was sleeping soundly. Will re-attempt PT at later time/date as schedule permits. Heather Berkowitz, RN ADMIT Images from the original note were not included. OCCUPATIONAL THERAPY [facility] Initial Evaluation Name/MRN: James Reyes ([id number]) Evaluation Date: 12/04/2023 Date of : 1955 Admission Date: 11/29/2023 3:34 PM Age: 68 y.o. Room/Bed: [facility] A Discharge Recommendation: Detention Facility Assessment IMPRESSION: ADL activity is limited [...] OT. Self-directive at times. C/o pain in tailbone and back. computer tech in room notified to handoff to RN. Pain: Powers-Mathew Pain Ratin = Hurts little more Past Medical History: Past Medical History: Diagnosis Date Acute kidney injury (HCC) 09/11/2015 CAD in [place] artery 08/08/2017 COPD (chronic obstructive pulmonary disease) [...] 07/18/2022 Performed by David Chen MD at [facility] OR CORONARY ARTERY BYPASS GRAFT FOOT [...] hyperglycemia, with long-term current use of insulin ([facility]) 10/30/2017 Uncontrolled type 2 diabetes mellitus with complication, with long-term current use of insulin 10/25/2017 Pseudomonas aeruginosa infection 10/20/2017 Sternal wound dehiscence 10/20/2017 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 10/20/2017 Wound disruption, post-op, skin, initial encounter 10/16/2017 Dyslipidemia 08/08/2017 Knee osteoarthritis 08/08/2017 Insulin dependent diabetes mellitus 08/08/2017 MINERVA (obstructive sleep apnea) 08/08/2017 Tobacco abuse 08/08/2017 CAD in [place] artery 08/08/2017 Angina at rest ([facility]) 08/08/2017 Hypertensive heart disease 08/08/2017 COPD (chronic obstructive pulmonary disease) ([facility]) 08/08/2017 Chest pain 08/06/2017 Colitis, collagenous [...] otherwise WFL Social/Functional History Patient admitted from [facility]. Assistive Equipment: rollator Prior Level of Function ADL Assistance: Reports assist PRN Ambulation Assistance: Independent rollator Transfer Assistance: Independent Objective ADLs LE Dressing: Dependent, Socks Toileting: Dependent, Standing at bedside, posterior hygiene due to soiled pads. OT addressing static balance/posture and safety managing rollator (pt adamant about using rollator to stand versus walker). computer tech present to assist with hygiene. LEs buckling. [...] to eat lunch meal per pt request. computer tech aware and confirming pt has been sitting [...] of Care supervision is transferred to a [facility] Therapy Services Occupational Therapist. Goals and/or treatment plan was established in collaboration with patient/family/other representatives. Pretty Daley OTR/L Hospitalist Progress Note 12/04/2023 Subjective: Admit Date: 11/29/2023 PCP: No primary care provider on file. [facility] BRIEF HOSPITAL COURSE: James is a 68 y.o. male with past medical history below who presents with chief complaint listed above. Pt was walking with his rollator on [employer] to go get cigarettes. Pt lost his [...] Intake/Output Summary (Last 24 hours) at 12/04/2023 0913 Last data filed at 12/04/2023 0600 Gross per 24 hour Intake 1362 ml Output 1200 ml Net 162 ml Past Medical History: Past Medical History: Diagnosis Date Acute kidney injury (HCC) 09/11/2015 CAD in [place] artery 08/08/2017 COPD (chronic obstructive pulmonary disease) (HCC) Developmental disorder Diabetes mellitus (HCC) Esophageal reflux Gastritis see EGD on 03/29/2016 GERD (gastroesophageal reflux disease) Hyperlipidemia IBS (irritable bowel syndrome) Mixed Obesity Osteoarthritis Pain management Plantar fasciitis, bilateral Unspecified sleep apnea Urinary retention LABS: CBC: Recent Labs 12/02/2332812/03/2352412/04/23 023 WBC 4.6 4.2 4.1 RBC 3.47* 3.36* 3.43* HGB 10.5* 10.2* 10.2* HCT 33.7* 32.5* 33.3* MCV 97.1 96.7 97.1 RDW 15.7* 15.4* 15.5* PLT 171 165 167 BMP: Recent Labs 12/02/2332812/03/23 0512/04/23 023 NA 137 139 138 K 4.1 3.9 4.2 CL 113* 114* 114* CO2 18* 20* 19* BUN 23* 19 18 CREATININE 1.00 0.93 0.93 GLUCOSE 216* 134* 90 CALCIUM 8.5 8.4 8.6 ANIONGAP 5 5 5 LIVER PROFILE: Recent Labs 12/02/2332812/03/2352412/04/23 023 AST 16 13* 14* ALT 14 12 11 BILITOT 0.3 0.3 0.4 ALKPHOS 82 71 70 PROT 5.5* 5.3* 5.4* PT/INR: No results for input(s): PROTIME, INR in the last 72 hours. CARDIAC ENZYMES: Recent Labs 12/02/23328 TROPONINI <0.012 Procalcitonin: No results found for: PROCAL COVID-19 PCR: No results for input(s): COVID19 in the last 72 hours. Objective: Vitals: BP 115/56 (BP Location: Right arm, Patient Position: Lying) Pulse (!) 44 Temp 36.2 C (97.2 F) (Temporal) Resp 18 Ht 6' 2 (1.88 m) Wt 279 lb (127 kg) [...] WC mometasone-formoterol, 2 puff, Inhalation, BID pancrelipase (Vof-Oegc-Fxos), 2 capsule, Oral, TID WC pregabalin, 150 [...] Ucx - Medically stable for discharge to [facility] - SNF - am labs, replace lytes prn - [...] Flori Strickland MD Division of Hospitalist Medicine [facility] Hospitalist Progress Note 12/03/2023 Subjective: Admit Date: 11/29/2023 PCP: No primary care provider on file. [facility] A BRIEF HOSPITAL COURSE: James is a 68 y.o. male with past medical history below who presents with chief complaint listed above. Pt was walking with his rollator on [address] to go get cigarettes. Pt lost his [...] Acute kidney injury (HCC) 09/11/2015 CAD in [place] artery 08/08/2017 COPD (chronic obstructive pulmonary disease) (HCC) Developmental disorder Diabetes mellitus (HCC) Esophageal reflux Gastritis see EGD on 03/29/2016 GERD (gastroesophageal reflux disease) Hyperlipidemia IBS (irritable bowel syndrome) Mixed Obesity Osteoarthritis Pain management Plantar fasciitis, bilateral Unspecified sleep apnea Urinary retention LABS: CBC: Recent Labs 12/01/23 0539 12/02/2332812/03/23 0525 WBC 4.3 4.6 4.2 RBC 3.48* [...] 5.5* 5.3* PT/INR: No results for input(s): PROTIME, INR in the last 72 hours. CARDIAC ENZYMES: Recent Labs 12/02/23328 TROPONINI <0.012 Procalcitonin: No results found for: PROCAL COVID-19 PCR: No results for input(s): COVID19 in the last 72 hours. Objective: Vitals: BP 118/51 Pulse 52 Temp 36.5 C (97.7 F) (Temporal) Resp 18 Ht 6' 2 (1.88 m) Wt 279 lb (127 kg) [...] WC mometasone-formoterol, 2 puff, Inhalation, BID pancrelipase (Kbo-Inbo-Jwbp), 2 capsule, Oral, TID WC pregabalin, 150 [...] Flori Strickland MD Division of Hospitalist Medicine [facility] Nutrition Assessment Type and Reason for Visit: [...] Acute kidney injury (HCC) 09/11/2015 CAD in [place] artery 08/08/2017 COPD (chronic obstructive pulmonary disease) [...] Pt was walking with his rollator on [employer] to go get cigarettes. Pt lost his [...] DC - awaiting SNF placement. CAD in [place] tribe artery. HTN controlled w/ Coreg. Dyslipidemia wir [...] DC - awaiting SNF placement. CAD in [place] artery. HTN controlled w/ Coreg. Dyslipidemia w/ [...] On: Kcal/kg Weight Used for Energy Requirements: [place] Weight for Energy Calculation (kg): 86 kg Total Energy Requirements (kcals/day): 2580 Weight Used for Protein Requirements: [place] Weight in Kg Used for Protein Requirements: [...] History: Independent of feeding and [facility]ides at [facility] Intake/Output Summary (Last 24 hours) at 12/03/2023 [...] Daily Insulin Lispro, 16 Units, SubCUTAneous, TID mometasone-formoterol, 2 puff, Inhalation, BID pancrelipase (Xaw-Azvb-Pszv), 2 capsule, Oral, TID WC pregabalin, 150 [...] FREET4 1.11 04/13/2022 VITD25 24 (L) 12/02/2023 [id number] 167 (L) 11/30/2023 FOLATE 3.7 11/30/2023 Lab [...] Ordered Anthropometric Measures: Height: 188 cm (6' 2) Current Body Weight: 127 kg (279 lb) Weight Source: Bed Scale [place] Body Weight (lbs) (Calculated): 190 lbs [place] Body Weight (Kg) (Calculated): 86 kg BMI [...] Debbie Whipple MS, RD, LD Contact: or [employer] Chat (dial *[phone] from hospital phone) Hospitalist Progress Note 12/02/2023 Subjective: Admit Date: 11/29/2023 PCP: No primary care provider on file. [facility] A BRIEF HOSPITAL COURSE: James is a 68 y.o. male with past medical history below who presents with chief complaint listed above. Pt was walking with his rollator on [address] to go get cigarettes. Pt lost his [...] Acute kidney injury (HCC) 09/11/2015 CAD in [place] artery 08/08/2017 COPD (chronic obstructive pulmonary disease) (HCC) Developmental disorder Diabetes mellitus (HCC) Esophageal reflux Gastritis see EGD on 03/29/2016 GERD (gastroesophageal reflux disease) Hyperlipidemia IBS (irritable bowel syndrome) Mixed Obesity Osteoarthritis Pain management Plantar fasciitis, bilateral Unspecified sleep apnea Urinary retention LABS: CBC: Recent Labs 11/30/23 0632 12/01/23 0539 12/02/23 0329 WBC 5.1 4.3 4.6 RBC 3.56* 3.48* 3.47* HGB 10.9* 10.4* 10.5* HCT 34.5* 33.3* 33.7* MCV 96.9 95.7 97.1 RDW 15.6* 15.7* 15.7* PLT 191 173 171 BMP: Recent Labs 11/30/23 0632 12/01/23 0539 12/02/23 0329 NA 138 138 137 K 3.9 4.1 4.1 CL 115* 114* 113* CO2 19* 19* 18* BUN 27* 25* 23* CREATININE 1.05 1.08 1.00 GLUCOSE 121* 137* 216* CALCIUM 8.8 8.6 8.5 ANIONGAP 5 5 5 LIVER PROFILE: Recent Labs 11/30/23 0632 12/01/23 0539 12/02/23 0329 AST 19 20 16 ALT 13 15 14 BILITOT 0.5 0.5 0.3 ALKPHOS 81 80 82 PROT 5.7* 5.6* 5.5* PT/INR: Recent Labs 11/29/23 2036 PROTIME 10.9 INR 1.0 CARDIAC ENZYMES: Recent Labs 11/30/23 0211 11/30/23 0632 12/02/23 0329 TROPONINI <0.012 <0.012 <0.012 Procalcitonin: No results found for: PROCAL COVID-19 PCR: No results for input(s): COVID19 in the last 72 hours. Objective: Vitals: BP 133/70 (BP Location: Right arm, Patient Position: Sitting) Pulse 70 Temp 36.7 C (98.1 F) (Temporal) Resp 16 Ht 6' 2 (1.88 m) Wt 279 lb (127 kg) [...] WC mometasone-formoterol, 2 puff, Inhalation, BID pancrelipase (Hzc-Kjzh-Drhq), 2 capsule, Oral, TID WC pregabalin, 150 [...] Flori Strickland MD Division of Hospitalist Medicine [facility] Neuro Critical Care / stroke Attending Addendum [...] original note were not included. PHYSICAL THERAPY [facility] Initial Evaluation Name/MRN: James Reyes ([id number]) Evaluation Date: 12/01/2023 Date of : 1955 Admission Date: 11/29/2023 3:34 PM Age: 68 y.o. [facility] A Discharge Recommendation: Detention Facility Assessment IMPRESSION: pt is 68 year [...] Medical History: Diagnosis Date Acute kidney injury ([facility]) 09/11/2015 CAD in [place] artery 08/08/2017 COPD (chronic obstructive pulmonary disease) ([facility]) Developmental disorder Diabetes mellitus ([facility]) Esophageal reflux Gastritis see EGD on [...] 07/18/2022 Performed by David Chen MD at [facility] OR CORONARY ARTERY BYPASS GRAFT FOOT [...] hyperglycemia, with long-term current use of insulin ([facility]) 10/30/2017 Uncontrolled type 2 diabetes mellitus with complication, with long-term current use of insulin 10/25/2017 Pseudomonas aeruginosa infection 10/20/2017 Sternal wound dehiscence 10/20/2017 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 10/20/2017 Wound disruption, post-op, skin, initial encounter 10/16/2017 Dyslipidemia 08/08/2017 Knee osteoarthritis 08/08/2017 Insulin dependent diabetes mellitus 08/08/2017 MINERVA (obstructive sleep apnea) 08/08/2017 Tobacco abuse 08/08/2017 CAD in [place] artery 08/08/2017 Angina at rest ([facility]) 08/08/2017 Hypertensive heart disease 08/08/2017 COPD (chronic obstructive pulmonary disease) ([facility]) 08/08/2017 Chest pain 08/06/2017 Colitis, collagenous 06/15/2017 Anemia 05/23/2017 Gastroesophageal reflux disease without esophagitis 05/23/2017 Colitis 05/21/2017 Esophagitis, reflux 04/26/2017 Type 2 diabetes, uncontrolled, with neuropathy 04/26/2017 Hiatal hernia 02/21/2017 Arthritis of foot, degenerative 01/09/2017 Enlarged prostate with lower urinary tract symptoms (LUTS) 09/07/2016 Morbid obesity ([facility]) 08/12/2016 Shoulder pain, left 10/23/2014 Knee [...] Hearing: normal Social/Functional History Patient admitted from [facility]. Assistive Equipment: rollator Prior Level of Function [...] LUANNE, at times with forearms on hand hat lining blocker. Mod cues for upright posture, to keep [...] Raw Score (No Stairs) : 12 JH-HLM JH-HLM Score: Walked 10 steps or more (i.e. [...] returning to ASL Goals Patient Stated Goal: get out of here Encounter Problems Encounter Problems (Active) Mobility Patient [...] of Care supervision is transferred to a [facility] Therapy Services Physical Therapist. Goals and/or treatment plan was established in collaboration with patient/family/other representatives. Hospitalist Progress Note 12/01/2023 Subjective: Admit Date: 11/29/2023 PCP: No primary care provider on file. [facility]#: [facility] A BRIEF HOSPITAL COURSE: James is a 68 y.o. male with past medical history below who presents with chief complaint listed above. Pt was walking with his rollator on [employer] [place] to go get cigarettes. Pt lost his [...] Acute kidney injury (HCC) 09/11/2015 CAD in [place] artery 08/08/2017 COPD (chronic obstructive pulmonary disease) (HCC) Developmental disorder Diabetes mellitus (HCC) Esophageal reflux Gastritis see EGD on 03/29/2016 GERD (gastroesophageal reflux disease) Hyperlipidemia IBS (irritable bowel syndrome) Mixed Obesity Osteoarthritis Pain management Plantar fasciitis, bilateral Unspecified sleep apnea Urinary retention LABS: CBC: Recent Labs 11/29/23203511/30/23 0632 12/01/23 0539 WBC 7.0 5.1 4.3 [...] <0.012 <0.012 Procalcitonin: No results found for: PROCAL COVID-19 PCR: No results for input(s): COVID19 in the last 72 hours. Objective: Vitals: BP 136/60 (BP Location: Right arm, Patient Position: Lying) Pulse 53 Temp 36.4 C (97.6 F) (Temporal) Resp 20 Ht 6' 2 (1.88 m) Wt 279 lb (127 kg) [...] WC mometasone-formoterol, 2 puff, Inhalation, BID pancrelipase (Sod-Ymey-Emuq), 2 capsule, Oral, TID WC pregabalin, 150 mg, Oral, BID tamsulosin, 0.4 mg, Oral, BID tiotropium, 2 puff, Inhalation, Daily PRN medications: acetaminophen OR acetaminophen, albuterol, bisacodyl, dextrose, dextrose, glucagon (rDNA), glucose, labetalol, methyl salicylate-menthol, naloxone, ondansetron ODT OR ondansetron, oxyCODONE-acetaminophen, polyethylene glycol (PEG) 3350 Continuous sodium chloride, 50 mL/hr, Last Rate: 50 mL/hr (11/30/23 3521) Assessment Data: (CAT1) Reviewed 3 or more [...] Flori Strickland MD Division of Hospitalist Medicine [facility] Respiratory Care Department Progress Note As part [...] original note were not included. OCCUPATIONAL THERAPY [facility] Name/MRN: James Reyes ([id number]) Date: 11/30/2023 Returned to attempt Eval at 13:45 spoke to RN who stated patient is going to be leaving floor for an MRI very shortly and not to see patient at this time. OT will return to evaluate as schedule permits. Darlin Corea OT Images from the original note were not included. PHYSICAL THERAPY [facility] Name/MRN: James Reyes ([id number]) Date: 11/30/2023 Multiple attempts made throughout the day, pt receiving echo, lunch, and OOR. Will attempt as able. Kyle Moreland PT Speech-Language Pathology Patient passed the Nursing Swallowing Screening and is on a Regular diet, Cardiac: Low fat, Low cholesterol. High Fiber, DEBBIE with Thin liquids. Completed speech orders as per stroke protocol. Images from the original note were not included. OCCUPATIONAL THERAPY [facility] Name/MRN: James Reyes ([id number]) Date: 11/30/2023 Performed chart review. Attempted OT eval 10:59 patient is getting Echo completed bedside. Will return to evaluate as schedule permits. Darlin Corea OT Patient seen and examined at bedside. Refer to Dr. King H&P for further details. See new orders. Flori Strickland MD Division of Hospitalist Medicine [facility] documented in this encounter [facility] 12-05-2023 Nurse Note Wound Care consulted for Pressure Injury Prevention. Pt's Yang score= 14 on 12/04 Pt's pressure points assessed. Pt's Heels, Buttocks/coccyx, Back, Elbows, Occiput and ears all intact. Pt sitting on edge of bed eating lunch. Prevention Measures in place, including: Weems sheet with pillows, Heels elevated off bed on pillows, Zinc/Moisture Barrier ointment, Waffle chair cushion (obtained for pt). Skin Care precaution order set in place. Dietitian consult N/A, subscore=3. PT consult in place. Will continue to follow pt. Please Voicera for any questions or concerns. Liz Keane RN, BSN, CWCN [facility] 12-05-2023 Nurse Note Wound Care consulted for Pressure Injury Prevention. Pt's Yang score= 14 on 12/04 Pt's pressure points assessed. Pt's Heels, Buttocks/coccyx, Back, Elbows, Occiput and ears all intact. Pt sitting on edge of bed eating lunch. Prevention Measures in place, including: Weems sheet with pillows, Heels elevated off bed on pillows, Zinc/Moisture Barrier ointment, Waffle chair cushion (obtained for pt). Skin Care precaution order set in place. Dietitian consult N/A, subscore=3. PT consult in place. Will continue to follow pt. Please Voicera for any questions or concerns. Liz Keane RN, BSN, CWCN Report called to [facility] [place] Patient is making inappropriate comments to nursing staff, after having a male nurse assigned he requested a new female nurse because he was not pretty. Patient was reminded that this is a professional environment and this behavior is not appropriate. Wound Care consulted for Pressure Injury Prevention. Pt's Yang= 20, pt is no longer at risk. Skin Care Precaution order set in place. PT/OT consults in place. Dietitian consult in place. Will continue to follow peripherally. Please voicera or secure chat message with any questions. Liz Keane RN, CWCN Wound Care arrived to pt's room for Prevention consult, but pt not in room at present time. Will return as time permits. Please Voicera for any questions or concerns. Kaycee Ricardo RN Krissy from [place] called and states James needs to return to baseline before he can return to us, he is usually independent with ADL's and walks safely with his rollator. Krissy's direct line [phone]. documented in this encounter [facility] 12-05-2023 Nurse Note Report called to [facility] 12-05-2023 Miscellaneous Notes Patient Choice Patient Name: JAMES REYES Date of : 1955 All Providers Sent [facility] Phone: [phone] Address: [address] [place] [address] Name: [facility] Phone: [phone] Address: [address] [place] [address] Name: [facility] Phone: [phone] Address: [address] [place] [address] [address] [place] [address] Discharge med list transmitted to [facility] via [facility] per TCC request. Level of Care returned. Notified RN, PRAFUL, and MD. Discharge order obtained. Uploaded PASRR and level of care to [facility] and sent to [facility]. Arranged for [facility] wheelchair ambulance for transport thru [employer] for cook pickled meat at 2 PM. Notified RN, TCC, pt's brother, Sreekanth, facility, and community product specialist of discharge time. Level of Care is back. Plan is discharge to [facility]. Once discharge is written. SW will set up transportation. Crisis Nurse will copy AVS. Bedside Nurse will call report to [phone]. I will task GRADE TAMPER to transmit MAR to [facility]. coverage for today. CRUZ completed, printed, and sent to [facility] to Home along with additional clinical information to start Level of Care. PASRR completed by SHALONDA Smith. Await return of Level of Care. Images from the original note were not included. Care Management Progress Note [facility] willing to accept. Will need CRUZ completed for to get Level of care. Message in secure chat for bedside Nurse to complete. Once Level of Care is received facility can accept patient. Discharge Milestones and Delays Expected date/time: 12/06/[address] discharge order Complete med reconciliation Case mgmt discharge readiness Clinical Stability Diagnostic Workup Associate Partner Recommendations Imaging Results PT discharge readiness OT discharge readiness UNDERCOLLAR MAKER discharge readiness Patient Education Complete Expected Discharge History Expected Date/Time Set By Reviewed At 12/06/2023 Jennifer Salazar RN 12/05/2023 7:38 AM 12/05/2023 Jennifer Salazar RN 12/04/2023 9:11 AM 12/04/2023 Jennifer Salazar RN 12/01/2023 9:23 AM 12/01/2023 Sergio Ruff DO 11/30/2023 12:41 AM 12/01/2023 Sergio Ruff, 11/29/2023 10:14 PM Length of Stay (Days): [...] included. Care Management Progress Note [facility] willing to accept. Will need Level of care, Discharge Milestones and Delays Expected date/time: 12/05/[address] discharge order Complete med reconciliation Case mgmt discharge readiness Clinical Stability Diagnostic Workup Associate Partner Recommendations Imaging Results PT discharge readiness OT discharge readiness UNDERCOLLAR MAKER discharge readiness Patient Education Complete Expected Discharge History Expected Date/Time Set By Reviewed At 12/05/2023 Jennifer Salazar RN 12/04/2023 9:11 AM 12/04/2023 Jennifer Salazar RN 12/01/2023 9:23 AM 12/01/2023 Sergio Ruff DO 11/30/2023 12:41 AM 12/01/2023 Sergio Ruff DO 11/29/2023 10:14 PM Length of Stay (Days): 5 GMLOS: No GMLOS Documented Referral placed to SNF - [facility] via [facility] per TCC request. Await review and response regarding ability to accept. TCC notified. Explained to patient his AL wanted him to go to skilled facility before returning home. Patient agreeable. I read facilities to patient. He made choices of [facility]) [facility] and [facility]. Referrals in [facility]. Patient will [...] is improving Outcome: Progressing Referral placed to [facility] via [facility] per [facility] request. Await review and response regarding ability to accept. TCC notified. Care Managment Initial Assessment Date: 11/30/2023 Patient Name: James Reyes : 1955 Patient Information Source of Information: Patient Cognition/Language: WFL - Within Functional Limits Permission given to speak with patient telesales representative/caregiver as indicated: No Confirmation of Payer with patient/family: Payer Name: Medicaid : No Confirmation of Primary Care Physician: (Does not know) Primary Caregiver: Self If assistance needed, confirmed caregiver ready, willing and able to care for patient at discharge: Yes Confirmed with: Living Arrangements Current Residence: Number of Floors Number of Entry Steps: Bed/Bath Levels: Facility: Assisted Living Facility Name: [facility] Plan to Return: Yes Lives with: Alone Support Systems: Comments (Other) (assisted living staff) Activities of Daily Living Ambulation: Independent (With rollator) Bathing/Dressing: Independent Elimination/Continence/Toileting: Independent Feeding: Independent Who Assists with Activities of Daily Living: Instrumental Activities of Daily Living Prescription Coverage: Yes Pharmacy Used: [facility] Medication Management: Transportation/Shopping: Transportation Mode: Needs [...] for: Additional Information: IA per patient. From [facility] DME-Rollator. Per [facility]. DON-Patient will need to be at his baseline to return to [place]. Will continue to follow for therapy recommendation. Jennifer Salazar RN Spoke to [facility]. Pt follows with PCP Dr.Richard Rodriguez with [facility] [phone] The patient is Moderately Stable - Low risk of patient condition declining or worsening The patient's goals for the shift include adequate rest The clinical goals for the shift include absence of neurological defecits Problem: Knowledge Deficit Goal: Patient/family/caregiver demonstrates understanding of disease process, treatment plan, medications, and discharge instructions Outcome: Progressing Flowsheets (Taken 11/30/2023 0505) Patient/family/caregiver demonstrates understanding of disease process, treatment [...] adequate time for meals Collaborate with clinical tariff compiler Collaborate with interdisciplinary team and initiate plan [...] adequate time for meals Collaborate with clinical tariff compiler Collaborate with interdisciplinary team and initiate plan and interventions as ordered Utilize nutrition screening tool and intervene per policy Assist patient with eating Encourage patient to take dietary supplement as ordered Include patient/family/caregiver in decisions related to nutrition Problem: Discharge Barriers Goal: My discharge needs are met Outcome: Progressing documented in this encounter [facility] 12-05-2023 Note Formatting of this n ote might be different from the original. Patient Choice Patient Name: JAMES REYES Date of : 1955 All Providers Sent Referral Name: [facility] Phone: [phone] Address: [address] [place] [address] Name: [employer] Phone: [phone] Address: [address] [place] [address] Name: [email or web address] Phone: [phone] Address: [address] [place] [address] [facility] 12-05-2023 Note Formatting of this n ote might be different from the original. Patient Choice Patient Name: JAMES REYES Date of : 1955 All Providers Sent Referral Name: [facility] Phone: [phone] Address: [address] [place] [address] Name: [employer] Phone: [phone] Address: [place] [address] Name: [facility] Phone: [phone] Address: [address] [place] [address] [facility] 12-05-2023 Note Formatting of this n ote might be different from the original. Discharge med list transmitted to [facility] via [facility]port per TCC request. [facility] 12-05-2023 Note Formatting of this n ote might be different from the original. Discharge med list transmitted to [facility] via [facility] per TCC request. [facility] 12-05-2023 Note Formatting of this n ote might be different from the original. Level of Care returned. Notified RN, TCC, and MD. Discharge order obtained. Uploaded PASRR and level of care to [facility] and sent to [facility]. Arranged for [facility] wheelchair ambulance for transport thru [facility] for cook pickled meat at 2 PM. Notified RN, TCC, pt's brother, Sreekanth, facility, and community product specialist of discharge time. [facility] 12-05-2023 Note Formatting of this n ote might be different from the original. Level of Care returned. Notified RN, TCC, and MD. Discharge order obtained. Uploaded PASRR and level of care to [facility] and sent to [facility]. Arranged for [facility] wheelchair ambulance for transport thru [facility] for cook pickled meat at 2 PM. Notified RN, TCC, pt's brother, Sreekanth, facility, and community product specialist of discharge time. [facility] 12-05-2023 Note Formatting of this n ote might be different from the original. Level of Care is back. Plan is discharge to [facility]. Once discharge is written. will set up transportation. [place] will copy AVS. Bedside Nurse will call report to [phone]. I will task GRADE TAMPER to transmit MAR to [facility]. T [facility] 12-05-2023 Note Formatting of this n ote might be different from the original. Level of Care is back. Plan is discharge to [facility]. Once discharge is written. will set up transportation. Crisis Nurse will copy AVS. Bedside Nurse will call report to [phone]. I will task GRADE TAMPER to transmit MAR to [facility]. T [facility] 12-05-2023 Nurse Note Patient is making inappropriate comments to nursing staff, after having a male nurse assigned he requested a new female nurse because he was not pretty. Patient was reminded that this is a professional environment and this behavior is not appropriate. [facility] 12-05-2023 Note Formatting of this n ote might be different from the original. SW coverage for today. CRUZ completed, printed, and sent to [facility] to Home along with additional clinical information to start Level of Care. PASRR completed by SHALONDA Smith. Await return of Level of Care. [facility] 12-05-2023 Note Formatting of this n ote might be different from the original. SW coverage for today. CRUZ completed, printed, and sent to [facility] to Home along with additional clinical information to start Level of Care. PASRR completed by SHALONDA Smith. Await return of Level of Care. [employer] 12-05-2023 Note Formatting of this n ote [...] mgmt discharge readiness Clinical Stability Diagnostic Workup Associate Partner Recommendations Imaging Results PT discharge readiness OT discharge readiness UNDERCOLLAR MAKER discharge readiness Patient Education Complete Expected Discharge History Expected Date/Time Set By Reviewed At 12/06/2023 Jennifer Salazar RN 12/05/2023 7:38 AM 12/05/2023 Jennifer Salazar RN 12/04/2023 9:11 AM 12/04/2023 Jennifer Salazar RN 12/01/2023 9:23 AM 12/01/2023 Sergio Ruff DO 11/30/2023 12:41 AM 12/01/2023 Sergio Ruff, DO 11/29/2023 10:14 PM Length of Stay (Days): 6 GMLOS: No GMLOS Documented [facility] 12-05-2023 Note Formatting of this n ote is different from the original. Images from the original note were not included. Care Management Progress Note [facility] willing to accept. Will need CRUZ completed for SW to get Level of care. Message in secure chat for bedside Nurse to complete. Once Level of Care is received facility can accept patient. Discharge Milestones and Delays Expected date/time: 12/06/[address] discharge order Complete med reconciliation Case mgmt discharge readiness Clinical Stability Diagnostic Workup Associate Partner Recommendations Imaging Results PT discharge readiness OT discharge readiness UNDERCOLLAR MAKER discharge readiness Patient Education Complete Expected Discharge History Expected Date/Time Set By Reviewed At 12/06/2023 Jeninfer Salazar RN 12/05/2023 7:38 AM 12/05/2023 Jennifer Salazar RN 12/04/2023 9:11 AM 12/04/2023 Jennifer Salazar RN 12/01/2023 9:23 AM 12/01/2023 Sergio Ruff, DO 11/30/2023 12:41 AM 12/01/2023 Sergio Ruff, DO 11/29/2023 10:14 PM Length of Stay (Days): 6 GMLOS: No GMLOS Documented [facility] 12-05-2023 Plan of care note The patient is Moderately Stable - Low risk of patient condition declining or worsening The patient's goals for the shift include The clinical goals for the shift include Over the shift, the patient did not make progress toward the following goals. Barriers to progression include education . Recommendations to address these barriers include learning about diease process. [facility] 12-04-2023 Note Formatting of this n ote might be different from the original. Reviewed with TCC. Completed PAS in [employer], will submit for LOC once CRUZ completed. [facility] 12-04-2023 Note Formatting of this n ote might be different from the original. Reviewed with TCC. Completed PAS in [facility], will submit for LOC once CRUZ completed. [facility] 12-04-2023 Note Formatting of this n ote is different from the original. Images from the original note were not included. Care Management Progress Note [facility] willing to accept. Will need Level of care, Discharge Milestones and Delays Expected date/time: 12/05/[address] discharge order Complete med reconciliation Case mgmt discharge readiness Clinical Stability Diagnostic Workup Associate Partner Recommendations Imaging Results PT discharge readiness OT discharge readiness UNDERCOLLAR MAKER discharge readiness Patient Education Complete Expected Discharge History Expected Date/Time Set By Reviewed At 12/05/2023 Jennifer Salazar RN 12/04/2023 9:11 AM 12/04/2023 Jennifer Salazar RN 12/01/2023 9:23 AM 12/01/2023 Sergiojose Ruff, DO 11/30/2023 12:41 AM 12/01/2023 Sergio Paty Ruff, DO 11/29/2023 10:14 PM Length of Stay (Days): 5 GMLOS: No GMLOS Documented [facility] 12-04-2023 Note Formatting of this n ote is different from the original. Images from the original note were not included. Care Management Progress Note [facility] willing to accept. Will need Level of care, Discharge Milestones and Delays Expected date/time: 12/05/[address] discharge order Complete med reconciliation Case mgmt discharge readiness Clinical Stability Diagnostic Workup Associate Partner Recommendations Imaging Results PT discharge readiness OT discharge readiness UNDERCOLLAR MAKER discharge readiness Patient Education Complete Expected Discharge History Expected Date/Time Set By Reviewed At 12/05/2023 Jennifer Salazar RN 12/04/2023 9:11 AM 12/04/2023 Jennifer Salazar RN 12/01/2023 9:23 AM 12/01/2023 Sergio Ruff DO 11/30/2023 12:41 AM 12/01/2023 Sergiojose Ruff, DO 11/29/2023 10:14 PM Length of Stay (Days): 5 GMLOS: No GMLOS Documented T [facility] 12-04-2023 Nurse Note Wound Care consulted for Pressure Injury Prevention. Pt's Yang= 20, pt is no longer at risk. Skin Care Precaution order set in place. PT/OT consults in place. Dietitian consult in place. Will continue to follow peripherally. Please voicera or secure chat message with any questions. Liz Keane RN, [facility] T [facility] 12-01-2023 Note Formatting of this n ote might be different from the original. Referral placed to [facility] via [facility]port per TCC request. Await review and response regarding ability to accept. TCC notified. [facility] 12-01-2023 Note Formatting of this n ote might be different from the original. Referral placed to [facility] via [facility] per TCC request. Await review and response regarding ability to accept. TCC notified. [facility] 12-01-2023 Note Referral placed to [facility] via [facility] per TCC request. Await review and response regarding ability to accept. TCC notified. [facility] 12-01-2023 Note Formatting of this n ote might be different from the original. Explained to patient his AL wanted him to go to skilled facility before returning home. Patient agreeable. I read facilities to patient. He made choices of ([facility]) [facility] and [facility] [place] [facility]. Patient will need Level of Care. [facility] 12-01-2023 Note Formatting of this n ote might be different from the original. Explained to patient his AL wanted him to go to skilled facility before returning home. Patient agreeable. I read facilities to patient. He made choices of ([facility]) [facility] and [facility]. Referrals in [facility]. Patient will need Level of Care. T [facility] 12-01-2023 Note Formatting of this n [...] Stay (Days): 2 GMLOS: No GMLOS Documented [facility] 12-01-2023 Note Formatting of this n ote [...] Stay (Days): 2 GMLOS: No GMLOS Documented [facility] 12-01-2023 Plan of care note The patient [...] My discharge needs are met Outcome: Progressing [facility] 11-30-2023 Note Problem: Potential f or Compromised Skin Integrity Goal: Skin Integrity is Maintained or Improved Outcome: Progressing Goal: Nutritional status is improving Outcome: Progressing Problem: Nutrition Goal: Nutritional status is improving Outcome: Progressing [facility] 11-30-2023 Plan of care note Problem: Potential for Compromised Skin Integrity Goal: Skin Integrity is Maintained or Improved Outcome: Progressing Goal: Nutritional status is improving Outcome: Progressing Problem: Nutrition Goal: Nutritional status is improving Outcome: Progressing [facility] 11-30-2023 Nurse Note Wound Care arrived to pt's room for Prevention consult, but pt not in room at present time. Will return as time permits. Please Voicera for any questions or concerns. Kaycee Ricardo RN [facility] 11-30-2023 Note Formatting of this n ote might be different from the original. Referral placed to [facility] via [facility] per TCC request. Await review and response regarding ability to accept. TCC notified. T [facility] 11-30-2023 Note Formatting of this n ote might be different from the original. Referral placed to [facility] via [facility] per TCC request. Await review and response regarding ability to accept. TCC notified. T [facility] 11-30-2023 Note Referral placed to [facility] via [facility] per TCC request. Await review and response regarding ability to accept. TCC notified. [facility] 11-30-2023 Note Formatting of this n ote might be different from the original. Care Managment Initial Assessment Date: 11/30/2023 Patient Name: James Reyes : 1955 Patient Information Source of Information: Patient Cognition/Language: WFL - Within Functional Limits Permission given to speak with patient telesales representative/caregiver as indicated: No Confirmation of Payer with patient/family: Payer Name: Medicaid [place]: No Confirmation of Primary Care Physician: (Does not know) Primary Caregiver: Self If assistance needed, confirmed caregiver ready, willing and able to care for patient at discharge: Yes Confirmed with: Living Arrangements Current Residence: Number of Floors Number of Entry Steps: Bed/Bath Levels: Facility: Assisted Living Facility Name: [facility] Plan to Return: Yes Lives with: Alone Support Systems: Comments (Other) (assisted living staff) Activities of Daily Living Ambulation: Independent (With rollator) Bathing/Dressing: Independent Elimination/Continence/Toileting: Independent Feeding: Independent Who Assists with Activities of Daily Living: Instrumental Activities of Daily Living Prescription Coverage: Yes Pharmacy Used: [facility] Medication Management: Transportation/Shopping: Transportation Mode: [...] for: Additional Information: [place] per patient. From [facility] DME-Rollator. Per [facility]. DON-Patient will need to be at his baseline to return to [place]. Will continue to follow for therapy recommendation. Jenniefr Salazar RN [facility] 11-30-2023 Note Formatting of this n ote might be different from the original. Care Managment Initial Assessment Date: 11/30/2023 Patient Name: James Reyes : 1955 Patient Information Source of Information: Patient Cognition/Language: WFL - Within Functional Limits Permission given to speak with patient telesales representative/caregiver as indicated: No Confirmation of Payer with patient/family: Payer Name: Medicaid [place]: No Confirmation of Primary Care Physician: (Does not know) Primary Caregiver: Self If assistance needed, confirmed caregiver ready, willing and able to care for patient at discharge: Yes Confirmed with: Living Arrangements Current Residence: Number of Floors Number of Entry Steps: Bed/Bath Levels: Facility: Assisted Living Facility Name: [facility] Plan to Return: Yes Lives with: Alone Support Systems: Comments (Other) (assisted living staff) Activities of Daily Living Ambulation: Independent (With rollator) Bathing/Dressing: Independent Elimination/Continence/Toileting: Independent Feeding: Independent Who Assists with Activities of Daily Living: Instrumental Activities of Daily Living Prescription Coverage: Yes Pharmacy Used: [facility] Medication Management: Transportation/Shopping: Transportation Mode: Needs [...] for: Additional Information: IA per patient. From [facility] DME-Rollator. Per [facility]ASIM. DON-Patient will need to be at his baseline to return to [place]. Will continue to follow for therapy recommendation. Jennifer Salazar RN [facility] 11-30-2023 Note Formatting of this n ote might be different from the original. Spoke to [facility]. Pt follows with PCP Dr.Richard Rodriguez with [facility] [phone] [facility] 11-30-2023 Note Formatting of this n ote might be different from the original. Spoke to [facility]. Pt follows with PCP Dr.Richard Rodriguez with [facility] [phone] [facility] 11-30-2023 Nurse Note Krissy from [facility] called and states James needs to return to baseline before he can return to us, he is usually independent with ADL's and walks safely with his rollator. Krissy's direct line [phone]. [facility] 11-30-2023 Consult note Associated Order (s): IP CONSULT TO NEUROLOGY INITIAL CONSULT NOTE. 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 Every Monday Historical Provider, ezetimibe (Zetia) 10 MG tablet Take 10 [...] nystatin (Mycostatin) cream 11/08/22 Historical Provider, pancrelipase, Qlw-Azqf-Qouy, (Creon) 58361-57735 units capsule Take by mouth 3 times [...] packet 4 g, 1 packet, Oral, TID , Lorenza Bowles MD cilostazol (Pletal) tablet 50 [...] IntraVENous, q6h PRN, Lorenza Bowles MD pancrelipase (Vzg-Afkm-Sadc) (Creon) 6000-01440 units per capsule 2 capsule, 2 capsule, [...] attack Mother 61.00 Heart disease Father Other (05[address]) Brother accident Coronary artery disease Father Diabetes [...] 59 18 95 % 1.88 m (6' 2) 127 kg (279 lb 14.4 oz) I/O [...] 457 ms QTC Interval 439 ms P [place] 13 degrees QRS [place] -44 degrees T Wave [place] 122 degrees ID Interval 230 ms POCT glucose meter Collection [...] -HTN under control with Coreg -CAD in [place] artery Dizziness secondary to mechanical fall -CT [...] to be involved in this patient's care. [facility] 11-30-2023 Consult note Associated Order (s): IP CONSULT TO NEUROLOGY INITIAL CONSULT NOTE. 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 Take with meals. 02/22/23 Otfried Alysa Corcoran MD cholestyramine (Questran) 4 g packet [...] Historical Provider, ergocalciferol (Vitamin D-2) 1.25 MG (05988 UT) capsule Take 1.25 mg by mouth [...] nystatin (Mycostatin) cream 11/08/22 Historical Provider, pancrelipase, Vos-Zemo-Laoy, (Creon) 80623-55269 units capsule Take by mouth 3 times [...] 650 mg, 650 mg, Rectal, q6h PRN, Narsimha Rubio Kodakandla, MD albuterol (2.5 MG/3ML) 0.083% nebulizer solution [...] IntraVENous, q6h PRN, Lorenza Bowles MD pancrelipase (Cvj-Vmcp-Fioz) (Creon) 6000-76531 units per capsule 2 capsule, 2 capsule, Oral, TID , Lorenza Bowles MD polyethylene glycol (PEG) 3350 [...] attack Mother 61.00 Heart disease Father Other (81129) Brother accident Coronary artery disease Father Diabetes [...] 59 18 95 % 1.88 m (6' 2) 127 kg (279 lb 14.4 oz) I/O [...] 457 ms QTC Interval 439 ms P Campton 13 degrees QRS Campton -44 degrees T Wave Campton 122 degrees ID Interval 230 ms POCT glucose meter Collection [...] -HTN under control with Coreg -CAD in [place] artery Dizziness secondary to mechanical fall -CT [...] this patient's care. documented in this encounter [facility] 11-30-2023 Plan of care note The patient is Moderately Stable - Low risk of patient condition declining or worsening The patient's goals for the shift include adequate rest The clinical goals for the shift include absence of neurological defecits Problem: Knowledge Deficit Goal: Patient/family/caregiver demonstrates understanding of disease process, treatment plan, medications, and discharge instructions Outcome: Progressing Flowsheets (Taken 11/30/2023 050) Patient/family/caregiver demonstrates understanding of disease process, treatment plan, medications, and discharge instructions: Complete learning assessment and assess knowledge base Provide teaching at level of understanding Provide teaching via preferred learning methods Problem: Potential for Compromised Skin Integrity Goal: Skin Integrity is Maintained or Improved Outcome: Progressing Flowsheets (Taken 11/30/2023 050) Skin integrity is maintained or improved: Assess [...] is improving Outcome: Progressing Flowsheets (Taken 11/30/2023 050) Nutritional status is improving: Monitor and assess patient for malnutrition (ex- brittle hair, bruises, dry skin, pale skin and conjunctiva, muscle wasting, smooth red tongue, and disorientation) Monitor patient's weight and dietary intake as ordered or per policy Determine patient's food preferences and provide high-protein, high-caloric foods as appropriate Allow adequate time for meals Collaborate with clinical tariff compiler Collaborate with interdisciplinary team and initiate plan and interventions as ordered Utilize nutrition screening tool and intervene per policy Assist patient with eating Encourage patient to take dietary supplement as ordered Include patient/family/caregiver in decisions related to nutrition Problem: Urinary Incontinence Goal: Perineal skin integrity is maintained or improved Outcome: Progressing Flowsheets (Taken 11/30/2023 0509) Perineal skin integrity is maintained or improved: [...] adequate time for meals Collaborate with clinical tariff compiler Collaborate with interdisciplinary team and initiate plan and interventions as ordered Utilize nutrition screening tool and intervene per policy Assist patient with eating Encourage patient to take dietary supplement as ordered Include patient/family/caregiver in decisions related to nutrition Problem: Discharge Barriers Goal: My discharge needs are met Outcome: Progressing [facility] 11-30-2023 History and physical note Attending History and Physical Admit Date: 11/29/2023 PCP: No primary care provider on file. CHIEF COMPLAINT: Chief Complaint Patient presents with Fall Head Laceration HISTORY OF PRESENT ILLNESS: James is a 68 y.o. male with past medical history below who presents with chief complaint listed above. Pt was walking with his rollator on [address] to go get cigarettes. Pt lost his balance while walking and stumbled onto grass and fell backwards hitting his head. Denied loss of consciousness, vision changes, slurred speech, weakness/numbness in extremity, or nausea/vomiting. Will admit for further evaluation and management. 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 ergocalciferol (Vitamin D-2) 1.25 MG (68238 UT) capsule Take 1.25 mg by mouth [...] for chest pain. nystatin (Mycostatin) cream pancrelipase, Ihu-Ltmm-Emqv, (Creon) 83314-23326 units capsule Take by mouth 3 times [...] S2+, no m/r/g Abdomen: soft, nontender, BS+ COMMUNITY ASSOCIATION MANAGER: Awake and alert, motor and sensory [...] TROPONINI <0.012 Procalcitonin: No results found for: PROCAL Urine Culture: No results found for this or any previous visit. COVID-19 PCR: No results for input(s): COVID19 in the last 72 hours. 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 CHIEF COMPLAINT: Chief Complaint Patient presents with Fall Head Laceration HISTORY OF PRESENT ILLNESS: James is a 68 y.o. male with past medical history below who presents with chief complaint listed above. Pt was walking with his rollator on [address] to go get cigarettes. Pt lost his balance while walking and stumbled onto grass and fell backwards hitting his head. Denied loss of consciousness, vision changes, slurred speech, weakness/numbness in extremity, or nausea/vomiting. Will admit for further evaluation and management. 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 ergocalciferol (Vitamin D-2) 1.25 MG (14346 UT) capsule Take 1.25 mg by mouth [...] for chest pain. nystatin (Mycostatin) cream pancrelipase, Meo-Zkup-Zsvs, (Creon) 92963-45726 units capsule Take by mouth 3 times [...] S2+, no m/r/g Abdomen: soft, nontender, BS+ COMMUNITY ASSOCIATION MANAGER: Awake and alert, motor and sensory [...] TROPONINI <0.012 Procalcitonin: No results found for: PROCAL Urine Culture: No results found for this or any previous visit. COVID-19 PCR: No results for input(s): COVID19 in the last 72 hours. 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 The patient and/or family/surrogate voluntarily agreed to participate in ACP services. Patient s cognitive capacity: yes Code Status: [x] [FULL CODE - Continue all advanced life support: CPR,intubation,invasive procedures] [_] [DNR-CCA - DO NOT do CPR, intubation] [_] [DNR-HOSPITAL EDUCATION COORDINATOR - Comfort care only] [_] DNR form [...] Lorenza Bowles MD Division of Hospitalist Medicine [facility] documented in this encounter [facility] 11-29-2023 Emergency department Note Spoke to sister in [place], and advised that patient is being admitted to [facility] and EMS is on scene for transport Amelia Lopez RN 11/29/23 3476 [facility] 11-29-2023 Emergency department Note Spoke to sister in [place], and advised that patient is being admitted to [facility] and EMS is on scene for transport Amelia Lopez RN 11/29/230 Report to [facility] ambulance crew. Chart to crew for [facility]. Minda Quesada RN 11/29/232332 Report called to 4W Amelia ROACH @ [facility] Minda Quesada RN 11/29/23 231 Pt's sister in [place], called to ask about pt. Ok to speak to her per pt. Advised about the fall earlier and now having dizziness. She will call back later to check about the results. [phone] Minda Quesada RN 11/29/232051 Pt identification officer light and states now he is feeling dizzy and lightheaded. Dr. Ruff notified Minda Quesada RN 11/29/231946 Pt assisted to stand. Dr wants pt to ambulate with his rollator. Upon standing, pt incontinent of urine. Pt changed out of jeans and underwear. Pt stated to throw his wet clothing away. Pt given pajama bottoms. Pt able to investment advisor room and feels comfortable going home. Minda Quesada RN 11/29/231940 Pt assisted using urinal, but unable to urinate at this time. Pt asking for vaccuum mattress to be removed. Dr. Arreola assisted in rolling pt and removing mattress. Pt complains of chronic pain in legs and back, but no new pain. Minda Quesada RN 11/29/23 1703 Pt'd continous glucose monitor is going off. 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 ergocalciferol (Vitamin D-2) 1.25 MG (67485 UT) capsule Take 1.25 mg by mouth [...] for chest pain. nystatin (Mycostatin) cream pancrelipase, Leh-Jcgm-Pkft, (Creon) 92698-77401 units capsule Take by mouth 3 times [...] attack Mother 61.00 Heart disease Father Other (65779) Brother accident Coronary artery disease Father Diabetes [...] arteries: There is origin of the right RETURNED TELEPHONE EQUIPMENT APPRAISER. Otherwise, unremarkable. Anterior communicating artery: Unremarkable. Posterior communicating arteries: Robustness of the right posterior communicating artery is present, in keeping with origin of the right RETURNED TELEPHONE EQUIPMENT APPRAISER. Otherwise, unremarkable. Aneurysm or vascular malformation: None [...] arteries: There is origin of the right RETURNED TELEPHONE EQUIPMENT APPRAISER. Otherwise, unremarkable. Anterior communicating artery: Unremarkable. Posterior communicating arteries: Robustness of the right posterior communicating artery is present, in keeping with origin of the right RETURNED TELEPHONE EQUIPMENT APPRAISER. Otherwise, unremarkable. Aneurysm or vascular malformation: None [...] arteries: There is origin of the right RETURNED TELEPHONE EQUIPMENT APPRAISER. Otherwise, unremarkable. Anterior communicating artery: Unremarkable. Posterior communicating arteries: Robustness of the right posterior communicating artery is present, in keeping with origin of the right RETURNED TELEPHONE EQUIPMENT APPRAISER. Otherwise, unremarkable. Aneurysm or vascular malformation: None [...] equal to 30 ng/mL Test performed by [employer] Competitive Immunoassay, measuring Total Vitamin D, not [...] Abnormal Glucose 101 (*) Narrative: Performed by: [facility], [address] [place] [address] CLIA ID: [id number] POCT GLUCOSE METER UNSOLICITED RESULTS - Abnormal Glucose 139 (*) Narrative: Performed by: [facility], [address] [place] [address] CLIA ID: [id number] POCT GLUCOSE METER UNSOLICITED RESULTS - Abnormal Glucose 124 (*) Narrative: Performed by: [facility], [address] [place] [address] CLIA ID: [id number] POCT GLUCOSE METER UNSOLICITED RESULTS - Abnormal Glucose 139 (*) Narrative: Performed by: [facility], [address] [place] [address] CLIA ID: [id number] POCT GLUCOSE METER UNSOLICITED RESULTS - Abnormal Glucose 200 (*) Narrative: Performed by: [facility], [address] [place] [address] CLIA ID: [id number] POCT GLUCOSE METER UNSOLICITED RESULTS - Abnormal Glucose 124 (*) Narrative: Performed by: [facility], [address] [place] [address] CLIA ID: [id number] POCT GLUCOSE METER UNSOLICITED RESULTS - Abnormal Glucose 156 (*) Narrative: Performed by: [facility], [address] [place] [address] CLIA ID: [id number] POCT GLUCOSE METER UNSOLICITED RESULTS - Abnormal Glucose 276 (*) Narrative: Performed by: [facility], [address] [place] [address] CLIA ID: [id number] POCT GLUCOSE METER UNSOLICITED RESULTS - Abnormal Glucose 156 (*) Narrative: Performed by: [facility], [address] [place] [address], [facility] [address] CLIA ID: [id number] POCT GLUCOSE METER UNSOLICITED RESULTS - Abnormal Glucose 207 (*) Narrative: Performed by: [facility], [address] [place] [address] CLIA ID: [id number] POCT GLUCOSE METER UNSOLICITED RESULTS - Abnormal Glucose 142 (*) Narrative: Performed by: [facility], [address] [place] [address] CLIA ID: [id number] POCT GLUCOSE METER UNSOLICITED RESULTS - Abnormal Glucose 259 (*) Narrative: Performed by: [facility], [address] [place] [address] CLIA ID: [id number] POCT GLUCOSE METER UNSOLICITED RESULTS - Abnormal Glucose 119 (*) Narrative: Performed by: [facility], [address] [place] [address] CLIA ID: [id number] PROTHROMBIN TIME - Normal PROTHROMBIN TIME 10.9 [...] - Normal Glucose 84 Narrative: [facility]formed [facility]: [facility], [address] [facility] [address] CLIA ID: [id number] POCT GLUCOSE METER UNSOLICITED RESULTS - Normal Glucose 74 Narrative: Performed by: [facility], [address] [place] [address] CLIA ID: [id number] COMPREHENSIVE METABOLIC PANEL WITH MG REFLEX Narrative: The following orders were created for panel order Comprehensive Metabolic Panel w/ Mg Reflex. Procedure Abnormality Status --------- ------ Comprehensive metabolic ...[[id number]] Abnormal Final result Please view results for these tests on the individual orders. COMPREHENSIVE METABOLIC PANEL WITH MG REFLEX Narrative: The following orders were created for panel order Comprehensive Metabolic Panel with Mg Reflex. Procedure Abnormality Status --------- ------ Comprehensive metabolic ...[[id number]] Abnormal Final result Please view results for these tests on the individual orders. COMPREHENSIVE METABOLIC PANEL WITH MG REFLEX Narrative: The following orders were created for panel order Comprehensive Metabolic Panel with Mg Reflex. Procedure Abnormality Status --------- ------ Comprehensive metabolic ...[[id number]] Abnormal Final result Please view results for these tests on the individual orders. COMPREHENSIVE METABOLIC PANEL WITH MG REFLEX Narrative: The following orders were created for panel order Comprehensive Metabolic Panel with Mg Reflex. Procedure Abnormality Status --------- ------ Comprehensive metabolic ...[[id number]] Abnormal Final result Please view results for [...] DEPARTMENT COURSE and DIFFERENTIAL DIAGNOSIS/MDM: Vitals: Vitals: 08/17/24 2027 12/03/23 0232 12/03/23 0627 12/03/23 1022 [...] tablet 80 mg (80 mg Oral Given 12/03/2345) aspirin chewable tablet 81 mg (81 mg Oral Given 12/03/2355) carvedilol (Coreg) tablet 6.25 mg (6.25 mg Oral Given 12/03/2345) cholestyramine (Questran) packet 4 g (4 g Oral Given 12/03/23843) cilostazol (Pletal) tablet 50 mg (50 mg Oral Given 12/03/2345) dicyclomine (Bentyl) capsule 10 mg (10 mg Oral Given 12/03/2344) ezetimibe (Zetia) tablet 10 mg (10 mg Oral Given 12/02/237) famotidine (Pepcid) tablet 20 mg (20 mg Oral Given 12/03/23843) finasteride (Proscar) tablet 5 mg (5 mg Oral Given 12/03/2345) fluticasone (Flonase) nasal spray 1 spray (1 spray Each Nostril Not Given 12/03/23 09) insulin glargine (Lantus) injection 48 Units (48 Units SubCUTAneous Given 12/02/23 2306) Insulin Lispro (Humalog) injection 16 Units (16 Units SubCUTAneous Given 12/03/2345) pancrelipase (Ssj-Fcui-Mppe) (Creon) 6000-80071 units per capsule 2 capsule (2 capsules Oral Given 8/18/24 0844) pregabalin (Lyrica) capsule 150 mg (150 mg Oral Given 12/03/23 0844) tamsulosin (Flomax) 24 hr capsule 0.4 mg (0.4 mg Oral Given 12/03/2318) tiotropium (Spiriva Respimat) 2.5 MCG/ACT inhaler 2 [...] 25 mg (25 mg Oral Given 11/29/232042) perflutren protein A microsphere (Optison) 3 mL [...] admitted for further evaluation and treatment. SCREENINGS [place] Coma Scale Best Eye Response: Spontaneous Best Verbal Response: Oriented Best Motor Response: Follows commands [place] Coma Scale Score: 15 NIH Stroke Scale [...] Motor - Right Leg: Some Effort Against Burr (pt reports pain being why he is [...] DO 12/03/23 1132 Emergency Department Encounter Location: [facility] CARDIAC POST INTERVENTION PROGRESSIVE CARE UNIT CPI [...] 457 ms QTC Interval 439 ms P Campton 13 degrees QRS Campton -44 degrees T Wave Campton 122 degrees ID Interval [address] cervical spine wo [...] call and speak with the hospitalist at [facility], Dr. Bowles who agreed accept patient for admission. Medications mometasone-formoterol (Dulera 200) 200-5 MCG/ACT inhaler 2 puff (2 puffs Inhalation Not Given 11/30/23 011) albuterol (2.5 MG/3ML) 0.083% nebulizer solution 2.5 [...] tablet 50 mg (50 mg Oral Given 11/30/23 020) dicyclomine (Bentyl) capsule 10 mg (has no administration in time range) ezetimibe (Zetia) tablet 10 mg (10 mg Oral Given 11/30/23 020) famotidine (Pepcid) tablet 20 mg (has no administration in time range) finasteride (Proscar) tablet 5 mg (has no administration in time range) fluticasone (Flonase) nasal spray 1 spray (has no administration in time range) insulin glargine (Lantus) injection 48 Units (has no administration in time range) Insulin Lispro (Humalog) injection 16 Units (has no administration in time range) pancrelipase (Mkj-Fumw-Vybh) (Creon) 6000-81004 units per capsule 2 capsule (has no administration in time range) pregabalin (Lyrica) capsule 150 mg (150 mg Oral Given 11/30/23 0200) tamsulosin (Flomax) 24 hr capsule 0.4 mg (has no administration in time range) tiotropium (Spiriva Respimat) 2.5 MCG/ACT inhaler 2 puff (has no administration in time range) sodium chloride 0.9 % infusion (50 mL/hr IntraVENous New Bag 11/30/23 020) acetaminophen (Tylenol) tablet 650 mg (650 mg [...] Ruff DO 11/30/23 0435 Pt arrives via [facility] after a fall. Pt lives at [facility]. Pt was walking with his rollator on [facility] to go get cigarettes. Pt lost his balance while walking and stumbled onto grass and fell backwards hitting his head. No loss of consciousness per bystanders. Pt has chronic pain in back and legs. Pt arrives with c collar in place. Alert and oriented x 4. Skin warm and dry. Respirations even and unlabored. Call light in reach. documented in this encounter [facility] 11-29-2023 Emergency department Note Report to [facility] ambulance crew. Chart to crew for [facility]. Minda Quesada RN 11/29/23 233 [facility] 11-29-2023 Emergency department Note Report called to 4W Amelia ROACH @ [facility] Minda Quesada RN 11/29/23 2319 [facility] 11-29-2023 Emergency department Note Pt's sister in law, Niru, called to ask about pt. Ok to speak to her per pt. Advised about the fall earlier and now having dizziness. She will call back later to check about the results. [phone] Minda Quesada RN 11/29/232051 [facility] 11-29-2023 Emergency department Note Pt identification officer light and states now he is feeling dizzy and lightheaded. Dr. Ruff notified Minda Quesada RN 11/29/231946 [facility] 11-29-2023 Emergency department Note Pt assisted to stand. wants pt to ambulate with his rollator. Upon standing, pt incontinent of urine. Pt changed out of jeans and underwear. Pt stated to throw his wet clothing away. Pt given pajama bottoms. Pt able to investment advisor room and feels comfortable going home. Minda Quesada RN 11/29/231940 [facility] 11-29-2023 Hospital Discharge instructions Amelia Faria RN - 11/29/2023 7:09 PM EDT Vbwf-jtd-cmipmag and home medications as needed for pain. [...] and the need for follow-up with a physician/TECHNICAL WRITER AND EDITOR/PA after discharge. Amelia Faria RN on 11/30/23 [...] Name: James Reyes : 1955 Admit date: 11/29/2023 Discharge date: 12/05/2023 Code Status Order: Full Code Advance Directives: N Admitting Physician: Lorenza Bowles MD PCP: No primary care provider on file. Discharging Nurse: Romario Luna Discharging Hospital Unit/Room#: W4-436/W4-436 A Discharging Unit Phone Number: [phone] Emergency Contact: Extended Emergency Contact Information Primary Emergency Contact: Sreekanth Reyes Relation: Sibling Past Surgical History: Past Surgical History: Procedure Laterality Date CHOLECYSTECTOMY 03/29/20162010 COLONOSCOPY 05/23/2017 COLONOSCOPY 03/29/2016, repeat in 10 years, Dr. Ness, normal except internal hemorrhoid COLONOSCOPY N/A 07/18/2022 Performed by David Chen MD at [facility] OR CORONARY ARTERY BYPASS GRAFT FOOT [...] apnea) Tobacco abuse Esophagitis, reflux Morbid obesity ([facility]) Type 2 diabetes, uncontrolled, with neuropathy Wound disruption, post-op, skin, initial encounter Uncontrolled type 2 diabetes mellitus with hyperglycemia, with long-term current use of insulin ([facility]) CAD in [place] artery Uncontrolled type 2 diabetes mellitus with complication, with long-term current use of insulin Pseudomonas aeruginosa infection Angina at rest ([facility]) Sternal wound dehiscence [facility] (current) use of antibiotics Enlarged prostate with lower urinary tract symptoms (LUTS) Hypertensive heart disease Overview Signed 01/27/2022 12:43 PM by Interface, Incoming Problems- [facility] Conversion [facility] 55% EF SHOWS HYPERTENSIVE HEART DISEASE COPD (chronic obstructive pulmonary disease) ([facility]) Overview Signed 01/27/2022 12:43 PM by Interface, Incoming Problems- [facility] Conversion PATIENT IS ON 2 LITER OF OXYGEN AND NOW IS SEEING DR ESTRADA WAS TESTED BARBCHANCETAlysa AND QUALIFED HOME OXYGEN 07/17/2015 Arthritis of foot, degenerative Hiatal hernia Colitis Chest pain Anemia Colitis, collagenous Gastroesophageal reflux disease without esophagitis Isolation/Infection: No active isolations No active infections Nurse Assessment: Last Vital Signs: BP 115/56 (BP Location: Right arm, Patient Position: Lying) Pulse (!) 44 Temp 36.2 C (97.2 F) (Temporal) Resp 18 Ht 1.88 m (6' 2) Wt 127 kg (279 lb) SpO2 95% [...] Minimal assistance Toileting Minimal assistance Feeding Independent Landcare Officer Minimal assistance Med Delivery no Wound Care [...] Date: 11/29/23 Discharging to Facility/ Agency Name: [facility] Address: [address] [place] [address] Dialysis Facility (if applicable) Name: Address: Dialysis Schedule: Phone: Fax: Real Estate Acquisition Analyst/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 Update Admission H&P: No change in H&P PHYSICIAN SIGNATURE: The following attachments cannot be sent through Care Everywhere.Concussion Discharge Instructions, Adult (Malaysian)Quitting Smoking (Malaysian)documented in this encounter [facility] 11-29-2023 Emergency department Note Pt assisted using urinal, but unable to urinate at this time. Pt asking for vaccuum mattress to be removed. Dr. Arreola assisted in rolling pt and removing mattress. Pt complains of chronic pain in legs and back, but no new pain. Minda Quesada RN 11/29/23 7682 [facility] 11-29-2023 Emergency department Note Pt'd continous glucose monitor is going off. Reading 69. Finger stick glucose 84 on arrival. Minda Quesada RN 11/29/23 1611 [facility] 11-29-2023 Emergency department Triage note Pt arrives via [facility] after a fall. Pt lives at [facility] living. Pt was walking with his rollator on [facility] to go get cigarettes. Pt lost his balance while walking and stumbled onto grass and fell backwards hitting his head. No loss of consciousness per bystanders. Pt has chronic pain in back and legs. Pt arrives with c collar in place. Alert and oriented x 4. Skin warm and dry. Respirations even and unlabored. Call light in reach. [facility] 11-29-2023 Physician Emergency department Note EMERGENCY DEPARTMENT [...] status post mechanical fall. Patient resides at [facility] was using rollator to go to the [...] Acute kidney injury (HCC) 09/11/2015 CAD in [place] artery 08/08/2017 COPD (chronic obstructive pulmonary disease) [...] 07/18/2022 Performed by David Chen MD at [facility] OR CORONARY ARTERY BYPASS GRAFT FOOT [...] mouth daily. ergocalciferol (Vitamin D-2) 1.25 MG (55080 UT) capsule Take 1.25 mg by mouth [...] for chest pain. nystatin (Mycostatin) cream pancrelipase, Ije-Uffb-Qijn, (Creon) 53734-78508 units capsule Take by mouth 3 times [...] attack Mother 61.00 Heart disease Father Other ([id number]) Brother accident Coronary artery disease Father Diabetes [...] arteries: There is origin of the right RETURNED TELEPHONE EQUIPMENT APPRAISER. Otherwise, unremarkable. Anterior communicating artery: Unremarkable. Posterior communicating arteries: Robustness of the right posterior communicating artery is present, in keeping with origin of the right RETURNED TELEPHONE EQUIPMENT APPRAISER. Otherwise, unremarkable. Aneurysm or vascular malformation: None [...] arteries: There is origin of the right RETURNED TELEPHONE EQUIPMENT APPRAISER. Otherwise, unremarkable. Anterior communicating artery: Unremarkable. Posterior communicating arteries: Robustness of the right posterior communicating artery is present, in keeping with origin of the right RETURNED TELEPHONE EQUIPMENT APPRAISER. Otherwise, unremarkable. Aneurysm or vascular malformation: None [...] arteries: There is origin of the right RETURNED TELEPHONE EQUIPMENT APPRAISER. Otherwise, unremarkable. Anterior communicating artery: Unremarkable. Posterior communicating arteries: Robustness of the right posterior communicating artery is present, in keeping with origin of the right RETURNED TELEPHONE EQUIPMENT APPRAISER. Otherwise, unremarkable. Aneurysm or vascular malformation: None [...] equal to 30 ng/mL Test performed by [employer] Immunoassay, measuring Total Vitamin D, not [...] Abnormal Glucose 101 (*) Narrative: Performed by: [facility], [address] [place] [id number] CLIA ID: [id number] POCT GLUCOSE METER UNSOLICITED RESULTS - Abnormal Glucose 139 (*) Narrative: Performed by: [facility], [address] [place] [address] CLIA ID: [id number] POCT GLUCOSE METER UNSOLICITED RESULTS - Abnormal Glucose 124 (*) Narrative: Performed by: [facility], [address] [place] [address] CLIA ID: [id number] POCT GLUCOSE METER UNSOLICITED RESULTS - Abnormal Glucose 139 (*) Narrative: Performed by: [facility], [address] [place] [address] CLIA ID: [id number] POCT GLUCOSE METER UNSOLICITED RESULTS - Abnormal Glucose 200 (*) Narrative: Performed by: [facility], [address] [place] [address] CLIA ID: [id number] POCT GLUCOSE METER UNSOLICITED RESULTS - Abnormal Glucose 124 (*) Narrative: Performed by: [facility], [address] [place] [address] CLIA ID: [id number] POCT GLUCOSE METER UNSOLICITED RESULTS - Abnormal Glucose 156 (*) Narrative: Performed by: [facility], [address] [place] [address] CLIA ID: [id number] POCT GLUCOSE METER UNSOLICITED RESULTS - Abnormal Glucose 276 (*) Narrative: Performed by: [facility], [address] [place] [address] CLIA ID: [id number] POCT GLUCOSE METER UNSOLICITED RESULTS - Abnormal Glucose 156 (*) Narrative: Performed by: [facility], [address] [place] [address] CLIA ID: [id number] POCT GLUCOSE METER UNSOLICITED RESULTS - Abnormal Glucose 207 (*) Narrative: Performed by: [facility], [address] [place] [address] CLIA ID: [id number] POCT GLUCOSE METER UNSOLICITED RESULTS - Abnormal Glucose 142 (*) Narrative: Performed by: [facility], [address] [place] [address] CLIA ID: [id number] POCT GLUCOSE METER UNSOLICITED RESULTS - Abnormal Glucose 259 (*) Narrative: Performed by: [facility], [address] [place] [address] CLIA ID: [id number] POCT GLUCOSE METER UNSOLICITED RESULTS - Abnormal Glucose 119 (*) Narrative: Performed by: [facility], [address] [place] [address] CLIA ID: [id number] PROTHROMBIN TIME - Normal PROTHROMBIN TIME 10.9 [...] - Normal Glucose 84 Narrative: [facility], [address] [place] [address] CLIA ID: [id number] POCT GLUCOSE METER UNSOLICITED RESULTS - Normal Glucose 74 Narrative: Performed by: [facility], [address] [place], [place] [id number] CLIA ID: [id number] COMPREHENSIVE METABOLIC PANEL WITH MG REFLEX Narrative: The following orders were created for panel order Comprehensive Metabolic Panel w/ Mg Reflex. Procedure Abnormality Status --------- ------ Comprehensive metabolic ...[[id number]] Abnormal Final result Please view results for these tests on the individual orders. COMPREHENSIVE METABOLIC PANEL WITH MG REFLEX Narrative: The following orders were created for panel order Comprehensive Metabolic Panel with Mg Reflex. Procedure Abnormality Status --------- ------ Comprehensive metabolic ...[[id number]] Abnormal Final result Please view results for these tests on the individual orders. COMPREHENSIVE METABOLIC PANEL WITH MG REFLEX Narrative: The following orders were created for panel order Comprehensive Metabolic Panel with Mg Reflex. Procedure Abnormality Status --------- ------ Comprehensive metabolic ...[[id number]] Abnormal Final result Please view results for these tests on the individual orders. COMPREHENSIVE METABOLIC PANEL WITH MG REFLEX Narrative: The following orders were created for panel order Comprehensive Metabolic Panel with Mg Reflex. Procedure Abnormality Status --------- ------ Comprehensive metabolic ...[[id number]] Abnormal Final result Please view results for [...] tablet 6.25 mg (6.25 mg Oral Given 12/03/23844) cholestyramine (Questran) packet 4 g (4 g Oral Given 12/03/23843) cilostazol (Pletal) tablet 50 mg (50 mg Oral Given 12/03/23844) dicyclomine (Bentyl) capsule 10 mg (10 mg Oral Given 12/03/23843) ezetimibe (Zetia) tablet 10 mg (10 mg Oral Given 12/02/237) famotidine (Pepcid) tablet 20 mg (20 mg Oral Given 12/03/23843) finasteride (Proscar) tablet 5 mg (5 mg Oral Given 12/03/23844) fluticasone (Flonase) nasal spray 1 spray (1 spray Each Nostril Not Given 12/03/23 09) insulin glargine (Lantus) injection 48 Units (48 Units SubCUTAneous Given 12/02/236) Insulin Lispro (Humalog) injection 16 Units (16 Units SubCUTAneous Given 12/03/23844) pancrelipase (Frq-Ghqp-Rgay) (Creon) 6000-71296 units per capsule 2 capsule (2 capsules Oral Given 12/03/23843) pregabalin (Lyrica) capsule 150 mg (150 mg [...] admitted for further evaluation and treatment. SCREENINGS [place] Coma Scale Best Eye Response: Spontaneous Best Verbal Response: Oriented Best Motor Response: Follows commands [place] Coma Scale Score: 15 NIH Stroke Scale [...] Motor - Right Leg: Some Effort Against Burr (pt reports pain being why he is [...] Medicine Provider Gulshan Arreola DO 12/03/23 1132 [facility] 11-29-2023 Physician Emergency department Note Emergency Department Encounter Location: [facility] CARDIAC POST INTERVENTION PROGRESSIVE CARE UNIT CPI PCU 4W Patient: James Reyes : 1955 Date of evaluation: 11/29/2023 ED Provider: Sergio Ruff, Time received sign-out: 190 James Reyes was checked out to me [...] 457 ms QTC Interval 439 ms P Campton 13 degrees QRS Campton -44 degrees T Wave Campton 122 degrees ID Interval [address] cervical spine wo [...] call and speak with the hospitalist at [facility], Dr. Bowles who agreed accept patient for admission. Medications mometasone-formoterol (Dulera 200) 200-5 MCG/ACT inhaler 2 puff (2 puffs Inhalation Not Given 11/30/23 011) albuterol (2.5 MG/3ML) 0.083% nebulizer solution 2.5 [...] (has no administration in time range) pancrelipase (Ymb-Qcti-Foiw) (Creon) 6000-80925 units per capsule 2 capsule (has no administration in time range) pregabalin (Lyrica) capsule 150 mg (150 mg Oral Given 8/15/24 0200) tamsulosin (Flomax) 24 hr capsule 0.4 mg (has no administration in time range) tiotropium (Spiriva Respimat) 2.5 MCG/ACT inhaler 2 puff (has no administration in time range) sodium chloride 0.9 % infusion (50 mL/hr IntraVENous New Bag 11/30/23 0200) acetaminophen (Tylenol) tablet 650 mg (650 mg [...] Ruff DO 11/30/23432 Sergio Ruff DO 11/30/23434 [facility] 09-14-2023 Instructions Jacqui GlassANGEL - 09/14/2023 10:08 AM EDT Dental extraction [...] done to speak with an oral surgeon. [facility] [phone]. HELPING THE HEALING PROCESS AND STOPPING THE [...] any questions or concerns please contact us: [facility] . Ask for the sales vice president identification officer (after hours). manager environmental services Clinic Hours: Mon-Fri 8:30 am to 4:30 pm. documented in this encounter [facility] 09-14-2023 Instructions Jacqui Glass DDS - 09/14/2023 [...] done to speak with an oral surgeon. [facility] [phone]. HELPING THE HEALING PROCESS AND STOPPING THE [...] any questions or concerns please contact us: [facility] . Ask for the sales vice president identification officer (after hours). manager environmental services Clinic Hours: Mon-Fri 8:30 am to 4:30 pm. documented in this encounter [facility] 09-14-2023 History of Present illness Narrative ORAL SURGERY PROCEDURE ROOM NOTE [facility] Surgical Product(s): Routine extraction teeth # 21, [...] Estimated blood loss: Minimal (<5 ml) Disposition: prison Referral placed for General Dentistry Jacqui Glass DDS Associated attestation - Rony Arriaza DMD, MD - 10/11/2023 1:24 PM EDT I was personally present for the white portions of the procedure. Rony Arriaza DMD, MD documented in this encounter [facility] 09-06-2023 History of Present illness Narrative [facility] PATIENT VISIT CHIEF COMPLAINT: Pain HISTORY OF PRESENT ILLNESS: A 67 yo male with PMHx Coronary artery disease s/pCABG 2014, [facility]- showing patent GREY to the LAD 2017. 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] Low back pain [M54.50] Major depressive disorder, recurrent, mild (HCC) [F33.0] Morbid obesity ([facility]) [E66.01] Obesity [E66.9] Nonexudative age-related macular degeneration, bilateral, early dry stage [H35.3131] MINERVA (obstructive sleep apnea) [G47.33] Other specified disorders of bone density and structure, left hand [M85.842] Papilloma of left upper eyelid [D23.121] Patient's noncompliance with other medical treatment and regimen due to unspecified reason [Z91.199] Peripheral vascular disease, unspecified ([facility]) [I73.9] Personal history of COVID-19 [Z86.16] Pseudomonas aeruginosa infection [A49.8] Respiratory failure ([facility]) [J96.90] Shoulder pain, left [M25.512] Spondylosis without myelopathy [M47.819] Tobacco abuse [Z72.0] Type 2 diabetes mellitus treated with insulin ([facility]) [E11.9, Z79.4] Type 2 diabetes mellitus with chronic kidney disease ([facility]) [E11.22] Type 2 diabetes mellitus with diabetic polyneuropathy ([facility]) [E11.42] Uncontrolled type 2 diabetes mellitus with hyperglycemia, with long-term current use of insulin ([facility]) [E11.65, Z79.4] Unspecified dementia, moderate, with [...] orally once a day trimethoprim-polymyxin b (POLYTRIM) 86117-0.1 UNIT/ML-% ophthalmic solution lyevyhz-nmdqwx-yjmkqltm (CREON) 97378 units capsule Take by mouth. oxyCODONE-acetaminophen (ROXICET) [...] by mouth 4 times daily. Continuous Glucose Supervisor [employer] (Neolane Perry 2 [place]) vitamin B-12 (CYANOCOBALAMIN) 1000 MCG/ML injection Inject [...] tablet vitamin D2 ergocalciferol (DRISDOL) 1.25 MG (19682 UT) capsule Take 1.25 mg by mouth [...] fluticasone (FLONASE) 50 mcg/act nasal inhaler 1 [place] daily. Advair Diskus 250-50 MCG/ACT inhaler gabapentin [...] #23, # 22 and #21. DIAGNOSIS: Caries [[id number]] ASSESSMENT: A 67 yo male with PMHx Coronary artery disease s/pCABG 2014, [facility]- showing patent GREY to the LAD 2017. LV function normal 04/2012, Angina, Acute kidney injury (HCC),CAD in [place] tribe artery, MINERVA, COPD, Developmental disorder, Diabetes, GERD, Hyperlipidemia, IBS (irritable bowel syndrome),Obesity, Osteoarthritis Patient present to [facility] clinic with external referral for removal of lower teeth # 29, #27, #26, # 25, # 24, #23, # 22 and #21. PLAN: Our treatment plan to do extractions for teeth # 29, #27, #26, # 25, # 24, #23, # 22 and #21 and alveoplasty under LA in [facility] clinic. Jb De Souza DDS Associated attestation [...] were not included. documented in this encounter [facility] 08-21-2023 History of Present illness Narrative [facility] Cardiology [facility] [address] [place] [id number] Dept: [phone] Dept Visit type: Established : 1955 DATE of SERVICE: 08/21/2023 Chief Complaint: Chief Complaint Patient presents with 6 Month Follow-up Coronary Artery Disease History of Present Illness: James Reyes is a 67 y.o. male who presents today for routine follow-up regarding his coronary artery disease, previous bypass surgery in 2014, hyperlipidemia. He is accompanied by physical therapy coordinator. Patient lives in assisted living at [facility]. He denies chest pain, palpitations dizziness lightheadedness or syncope. He was seen in in June by Mingo Gavin who ordered a dobutamine stress echocardiogram which was normal. There was no evidence of ischemia. Previous cardiac catheter 2018 showed patent GREY to the LAD. Patient's biggest complaint is arthralgias in his right knee. He is scheduled to see an orthopedic surgeon at [facility]. Apparently they are planning to try radiofrequency ablation of his pain nerves in his right knee. Past Medical History: Past Medical History: Diagnosis Date Acute kidney injury (HCC) 09/11/2015 CAD in [place] tribe artery 08/08/2017 COPD (chronic obstructive pulmonary disease) [...] 07/18/2022 Performed by David Chen MD at [facility] OR CORONARY ARTERY BYPASS GRAFT FOOT [...] attack Mother 61.00 Heart disease Father Other ([id number]) Brother accident Coronary artery disease Father Diabetes [...] , Rfl: ergocalciferol (Vitamin D-2) 1.25 MG (22143 UT) capsule, Take 1.25 mg by mouth [...] for chest pain., Disp: , Rfl: pancrelipase, Bdp-Htbk-Zixj, (Creon) 06645-15313 units capsule, Take by mouth 3 times [...] adult Pulse: 56 SpO2: 93% Height: 6' 1 (1.854 m) Body mass index is 36.41 [...] 08/07/17 Assessment and Plan: 1. CAD in [place] artery 2. Dyslipidemia James Reyes is warm [...] made to ensure accuracy; however, inadvertent computerized marble setter errors may be present. documented in this encounter [facility] 07-13-2023 Nurse Note Spoke with nurse from [facility]. Pt has DSE tomorrow, please hold beta sonny for 24 hours and have pt NPO for 4 hours prior. [facility] 07-13-2023 Nurse Note Sp[facility] with [facility] from [facility]. Pt has DSE tomorrow, please hold beta sonny for 24 hours and have pt NPO for 4 hours prior. documented in this encounter [facility] 06-06-2023 Note HNO ID: [id number] Author: MARIXA STEPHENS MD Service: ? Author [...] agree with all of its relevant components. [facility] 06-06-2023 History of Present illness Narrative [...] its relevant components. documented in this encounter [facility] 05-12-2023 History of Present illness Narrative Images from the original note were not included. [facility] [address] [facility] [address] Dept: [phone] Dept Visit type: Established : 1955 Reason for Visit: Hospital follow up for Chest pain Assessment and Plan 1.Chest pain- in setting of history of Coronary artery disease s/pCABG 2014, [facility]- showing patent GREY to the LAD 2017. [...] pt in agreement to have testing at [facility] Continues on medical management; ASA, carvedilol and [...] and tobacco abuse. He currently resides at [facility] in [place]. The patient reports he began to have [...] Every Monday ergocalciferol (Vitamin D-2) 1.25 MG (60820 UT) capsule Take 1.25 mg by mouth [...] 2 times daily. nystatin (Mycostatin) cream pancrelipase, Ztq-Tuhd-Eaaa, (Creon) 31867-93333 units capsule Take by mouth 3 times [...] Acute kidney injury (HCC) 09/11/2015 CAD in [place] artery 08/08/2017 COPD (chronic obstructive pulmonary disease) [...] 07/18/2022 Performed by David Chen MD at [facility] OR CORONARY ARTERY BYPASS GRAFT FOOT [...] attack Mother 61.00 Heart disease Father Other ([id number]) Brother accident Coronary artery disease Father Diabetes Father Objective Vitals: 05/12/23 1001 BP: 104/60 BP Location: Left arm Patient Position: Sitting BP Cuff Size: Adult Pulse: 62 SpO2: 98% Weight: 276 lb (125 kg) Height: 6' 1 (1.854 m) Physical Exam Constitutional: General: He [...] 11:59 PM (Final) Impression Sinus rhythm Prolonged ID interval Left anterior fascicular block Nonspecific T [...] PATRICIA Rodriguez CNP documented in this encounter [employer] [facility] [employer] 05-12-2023 Instructions PATRICIA Rodriguez CNP - 05/12/2023 10:00 AM EST Nuclear stress test planned documented in this encounter [facility] 05-03-2023 Telephone encounter Note Canceling appt with KM, patient does not follow EP. Sent message to ON ward secretary to reschedule patient with his team. [facility] 05-03-2023 Miscellaneous Notes Canceling appt with KM, patient does not follow EP. Sent message to ON ward secretary to reschedule patient with his team. Patient seen in consultation by Dr. Greenberg in the CDU. Recommended stress test, but patient declined. States he would follow-up with his torts law professor, Dr. Corcoran as an outpatient. Patient was discharged back to facility. Can you please call and schedule the patient to be seen by [address] Corcoran's TECHNICAL WRITER AND EDITOR's at [facility] in 2 weeks? Thank you documented in this encounter [facility] 04-24-2023 Telephone encounter Note Patient seen in consultation by Dr. Greenberg in the CDU. Recommended stress test, but patient declined. States he would follow-up with his torts law professor, Dr. Corcoran as an outpatient. Patient was discharged back to facility. Can you please call and schedule the patient to be seen by [address] Corcoran's TECHNICAL WRITER AND EDITOR's at [facility] in 2 weeks? Thank you [facility] Work Phone: 04-24-2023 Miscellaneous Notes Patient seen in consultation by Dr. Greenberg in the CDU. Recommended stress test, but patient declined. States he would follow-up with his torts law professor, Dr. Corcoran as an outpatient. Patient was discharged back to facility. Can you please call and schedule the patient to be seen by [address] Corcoran'casper TECHNICAL WRITER AND EDITOR'casper at [facility] in 2 weeks? Thank you documented in this encounter [facility] 04-24-2023 Nurse Note Report called to Juan nurse. [facility] 04-24-2023 Nurse Note Report called to Juan nurse. Patient refusing stress test at this time. Patient states he has had them before and did not like it. Patient states he just wants to go home. Cardiology and CDU DERICK notified. documented in this encounter [facility] 04-24-2023 Plan of care note The patient is Moderately Stable - Low risk of patient condition declining or worsening The patient's goals for the shift include see cardiology The clinical goals for the shift include see cardiology Over the shift, the patient did not make progress toward the following goals. Barriers to progression include NA. Recommendations to address these barriers include NA. [facility] 04-24-2023 Miscellaneous Notes The patient is Moderately [...] S/W, follow up Patient discharged back to [facility] Transport set via [facility] at 1p. retail sales associate seasonal provided report number Facility notified via [facility]port as to transport time. Patient aware of DC back at 1p. S/W, following Patient in from [facility] with chest pain. Likely to dc today to return. Return referral sent via [facility] to facility. S/W to follow for return. documented in this encounter [facility] 04-24-2023 Hospital Discharge instructions PATRICIA Nettles CNP [...] 07/18/2022 Performed by David Chen MD at [facility] OR CORONARY ARTERY BYPASS GRAFT FOOT [...] current use of insulin (HCC) CAD in [place] artery Uncontrolled type 2 diabetes mellitus with complication, with long-term current use of insulin Pseudomonas aeruginosa infection Angina at rest Sternal wound dehiscence [facility] (current) use of antibiotics Enlarged prostate with lower urinary tract symptoms (LUTS) Hypertensive heart disease Overview Signed 01/27/2022 12:43 PM by Interface, Incoming Problems- [facility] Conversion [facility] 55% EF SHOWS HYPERTENSIVE HEART DISEASE COPD (chronic obstructive pulmonary disease) ([facility]) Overview Signed 01/27/2022 12:43 PM by Interface, Incoming Problems- [facility] Conversion PATIENT IS ON 2 LITER OF OXYGEN AND NOW IS SEEING DR ESTRADA WAS TESTED BARBFIOR AND QUALIFED HOME OXYGEN 07/17/2015 Arthritis of foot, degenerative Hiatal hernia Colitis Anemia Colitis, collagenous Gastroesophageal reflux disease without esophagitis Isolation/Infection: No active isolations No active infections Nurse Assessment: Last Vital Signs: BP 112/51 (BP Location: Left arm, Patient Position: Lying) Pulse 68 Temp 36.4 C (97.6 F) Resp 18 Ht 1.829 m (6' 0.01) Wt 127 kg (280 lb) SpO2 94% [...] assistance Toileting Total assistance Feeding Minimal assistance Landcare Officer Minimal assistance Med Delivery yes Wound Care [...] Score: @READMISSIONRISKDETAILS@ Discharging to Facility/ Agency Name: [facility] Address: [address] [place] [address] Fax: Dialysis Facility (if applicable) Name: Address: Dialysis Schedule: Phone: Fax: Real Estate Acquisition Analyst/Quarry Supervisor Open Pit signature: ICIAN SECTION Prognosis: fair Condition at [...] H&P PHYSICIAN SIGNATURE: documented in this encounter [facility] 04-24-2023 Note Formatting of this n ote might be different from the original. S/W, follow up Patient discharged back to [facility] Transport set via [facility] at 1p. retail sales associate seasonal provided report number Facility notified via careport as to transport time. Patient aware of DC back at 1p. [facility] 04-24-2023 Note Formatting of this n ote might be different from the original. S/W, follow up Patient discharged back to [facility] Transport set via [facility] at 1p. retail sales associate seasonal provided report number Facility notified via careport as to transport time. Patient aware of DC back at 1p. [facility] 04-24-2023 Nurse Note Spoke to Swati in CDU. Pt is choosing to go home, not have test. [facility] 04-24-2023 Nurse Note Spoke to Swati in CDU. Pt is choosing to go home, not have test. documented in this encounter [facility] 04-24-2023 Note Formatting of this n ote might be different from the original. S/W, following Patient in from [facility] with chest pain. Likely to dc today to return. Return referral sent via Careport to facility. S/W to follow for return. [facility] 04-24-2023 Note Formatting of this n ote might be different from the original. S/W, following Patient in from [facility] with chest pain. Likely to dc today to return. Return referral sent via Careport to facility. S/W to follow for return. [facility] 04-24-2023 Nurse Note Patient refusing stress test at this time. Patient states he has had them before and did not like it. Patient states he just wants to go home. Cardiology and CDU DERICK notified. [facility] 04-24-2023 Consult note Formatting of th is note is different from the original. [email or web address] CARDIOLOGY CONSULTATION Patient Name: James Reyes : [...] he will followup as outpatient with his torts law professor. C/w asa, coreg and lipitor Data Collection Cardiac Testin04/23/23 ECG 12-LEAD (Preliminary) This result has not been signed. Information might be incomplete. Impression Sinus rhythm Prolonged ID interval Left anterior fascicular block Nonspecific T [...] Acute kidney injury (HCC) (09/11/2015), CAD in s[place] tribe artery (08/08/2017), COPD (chronic obstructive pulmonary disease) (HCC), Developmental disorder, Diabetes mellitus (HCC), Esophageal reflux, Gastritis, GERD (gastroesophageal reflux disease), Hyperlipidemia, IBS (irritable bowel syndrome), Obesity, Osteoarthritis, Pain management, Plantar fasciitis, bilateral, Unspecified sleep apnea, and Urinary retention. He has no past medical history of Asthma, Atrial fibrillation (HCC), Cancer (CMS/HCC) ([facility]), Cerebral artery occlusion with cerebral infarction (HCC), CHF (congestive heart failure) ([facility]), Depression, Headache, Immune deficiency disorder (HCC), Kidney stone, Pneumonia, Seizures (HCC), or Thyroid disease. SurgicalHistory: has a past surgical history that includes Colonoscopy (05/23/2017); Coronary artery bypass graft; Upper gastrointestinal endoscopy (04/01/2016); Other surgical history (10/24/2017); Other surgical history; Thyroid surgery; Sigel tooth extraction; Hemorrhoid surgery; Colonoscopy; Cholecystectomy (03/29/2016); [...] use drugs. Family History: family history includes [id number] in his brother; Coronary artery disease in [...] (one) time per week. Every Monday Historical Provider, ergocalciferol (Vitamin D-2) 1.25 MG (42004 UT) capsule Take 1.25 mg by mouth 1 (one) time per week. Every Monday Historical Provider, ezetimibe (Zetia) 10 MG tablet Take 10 mg by mouth Nightly. 08/26/21 Historical ProviderMD famotidine (Pepcid) 20 MG tablet Take 20 mg by mouth in the morning. 08/26/21 Historical Provider, finasteride (Proscar) 5 MG tablet [...] nystatin (Mycostatin) cream 11/08/22 Historical Provider, pancrelipase, Iac-Fafg-Qpxo, (Creon) 41731-85037 units capsule Take by mouth 3 times [...] WC mometasone-formoterol, 2 puff, Inhalation, BID pancrelipase (Foe-Zjrp-Wddx), 2 capsule, Oral, TID WC pregabalin, 150 [...] Weight: 280 lb (127 kg) Height: 6' 0.01 (1.829 m) No intake or output data [...] dry. Neurological: Mental Status: He is alert. [employer] Work Phone: 04-24-2023 Consult note Formatting of th is note is different from the original. [employer] CARDIOLOGY CONSULTATION Patient Name: James Reyes : [...] Recommendations Chest pain Hx of CABG in 2015 and cath done in 2018 that showed [...] he will followup as outpatient with his torts law professor. C/w asa, coreg and lipitor Data Collection Cardiac Testin04/23/23 ECG 12-LEAD (Preliminary) This result has not been signed. Information might be incomplete. Impression Sinus rhythm Prolonged ID interval Left anterior fascicular block Nonspecific T [...] Acute kidney injury (HCC) (09/11/2015), CAD in s[place] tribe artery (08/08/2017), COPD (chronic obstructive pulmonary disease) ([facility]), Developmental disorder, Diabetes mellitus (HCC), Esophageal reflux, Gastritis, GERD (gastroesophageal reflux disease), Hyperlipidemia, IBS (irritable bowel syndrome), Obesity, Osteoarthritis, Pain management, Plantar fasciitis, bilateral, Unspecified sleep apnea, and Urinary retention. He has no past medical history of Asthma, Atrial fibrillation ([facility]), Cancer (CMS/HCC) ([facility]), Cerebral artery occlusion with cerebral infarction ([facility]), CHF (congestive heart failure) ([facility]), Depression, Headache, Immune deficiency disorder (HCC), Kidney stone, Pneumonia, Seizures (HCC), or Thyroid disease. SurgicalHistory: has a past surgical history that includes Colonoscopy (05/23/2017); Coronary artery bypass graft; Upper gastrointestinal endoscopy (04/01/2016); Other surgical history (10/24/2017); Other surgical history; Thyroid surgery; Sigel tooth extraction; Hemorrhoid surgery; Colonoscopy; Cholecystectomy (03/29/2016); [...] use drugs. Family History: family history includes [id number] in his brother; Coronary artery disease in [...] Diskus 250-50 MCG/ACT aerosol powder 01/21/23 Historical ProviderMD albuterol (2.5 MG/3ML) 0.083% nebulizer solution Inhale 2.5 mg. 07/28/21 Historical ProviderMD albuterol 108 (90 Base) MCG/ACT inhaler Inhale [...] Historical ProviderMD ergocalciferol (Vitamin D-2) 1.25 MG (80449 UT) capsule Take 1.25 mg by mouth 1 (one) time per week. Every Monday Historical Provider, ezetimibe (Zetia) 10 MG tablet Take 10 [...] nystatin (Mycostatin) cream 11/08/22 Historical Provider, pancrelipase, Gcr-Ydfu-Ltpb, (Creon) 78760-20563 units capsule Take by mouth 3 times [...] WC mometasone-formoterol, 2 puff, Inhalation, BID pancrelipase (Hwk-Fvwp-Izoe), 2 capsule, Oral, TID WC pregabalin, 150 [...] Weight: 280 lb (127 kg) Height: 6' 0.01 (1.829 m) No intake or output data [...] He is alert. documented in this encounter [facility] 04-24-2023 Emergency department Note Report given to CDU MARLEY Snell RN 04/24/23 08 [facility] 04-24-2023 Emergency department Note Report given to CDU MARLEY Snell RN 04/24/23 08 Voltaren gel not given due to med [...] Acute kidney injury (HCC) 09/11/2015 CAD in [place] artery 08/08/2017 COPD (chronic obstructive pulmonary disease) [...] internal hemorrhoid COLONOSCOPY N/A 07/18/2022 Performed by Davdi Chen MD at [facility] OR CORONARY [...] per week. ERGOCALCIFEROL (VITAMIN D-2) 1.25 MG (77393 UT) CAPSULE Take 1.25 mg by mouth [...] mg by mouth 2 times daily. PANCRELIPASE, KXP-WXFV-SJBU, (CREON) [id number] UNITS CAPSULE Take by mouth 3 times [...] attack Mother 61.00 Heart disease Father Other ([id number]) Brother accident Coronary artery disease Father Diabetes Father SOCIAL HISTORY Social History Socioeconomic History Marital status: Single Tobacco Use Smoking status: Every Day Packs/day: 1 Types: Cigarettes Start date: 04/28/1973 Smokeless tobacco: Never Substance and Sexual Activity Alcohol use: No Alcohol/week: 0.0 standard drinks of alcohol Drug use: No SCREENINGS [place] Coma Scale Best Eye Response: Spontaneous Best Verbal Response: Oriented Best Motor Response: Follows commands Orion Coma Scale Score: 15 HEART Score History: [...] Thorpe RN 04/23/232006 documented in this encounter [facility] 04-24-2023 Emergency department Note Voltaren gel not given due to med not being available. Joelle Rivas RN 04/24/23 0358 [facility] 04-23-2023 History of Present illness Narrative I am not directly involved in care of this patient. Accepted with initial orders placed remotely from [facility] with approval from Dr. Mckeon. Further care to be managed by ED provider pending day shift CDU provider arrival. This is a non-billable note. CLIVE Savage documented in this encounter [facility] 04-23-2023 Emergency department Note Patient on telemetry monitoring. Joelle Rivas RN 04/23/232219 [facility] 04-23-2023 Emergency department Note Bed: 17 Expected date: 04/23/23 Expected time: 8:04 PM Means of arrival: Comments: Nancy Thorpe RN 04/23/232006 [facility] 04-23-2023 Emergency department Triage note Patient presents [...] the chronic arthritis in his right leg. [facility] 04-23-2023 Physician Emergency department Note EMERGENCY DEPARTMENT [...] Acute kidney injury (HCC) 09/11/2015 CAD in [place] artery 08/08/2017 COPD (chronic obstructive pulmonary disease) [...] 07/18/2022 Performed by David Chen MD at [facility] OR CORONARY ARTERY BYPASS GRAFT FOOT SURGERY Left 2014 HEMORRHOID SURGERY 1998 [...] per week. ERGOCALCIFEROL (VITAMIN D-2) 1.25 MG (08875 UT) CAPSULE Take 1.25 mg by mouth [...] mg by mouth 2 times daily. PANCRELIPASE, QWO-OUOR-ZMNU, (CREON) [id number] UNITS CAPSULE Take by mouth 3 times [...] attack Mother 61.00 Heart disease Father Other ([id number]) Brother accident Coronary artery disease Father Diabetes Father SOCIAL HISTORY Social History Socioeconomic History Marital status: Single Tobacco Use Smoking status: Every Day Packs/day: 1 Types: Cigarettes Start date: 04/28/1973 Smokeless tobacco: Never Substance and Sexual Activity Alcohol use: No Alcohol/week: 0.0 standard drinks of alcohol Drug use: No SCREENINGS Orion Coma Scale Best Eye Response: Spontaneous Best Verbal Response: Oriented Best Motor Response: Follows commands [place]ier Coma Scale Score: 15 HEART Score History: [...] Emergency Medicine Provider Gulshan Arreola DO 04/23/23 8111 [facility] 02-22-2023 History of Present illness Narrative [facility] Cardiology [facility] CARDIOLOGY [address] [place] [id number] Dept: [phone] Dept Visit type: Established : 1955 Chief [...] Acute kidney injury (HCC) 09/11/2015 CAD in [place] artery 08/08/2017 COPD (chronic obstructive pulmonary disease) [...] 07/18/2022 Performed by David Chen MD at [facility] OR CORONARY ARTERY BYPASS GRAFT FOOT [...] attack Mother 61.00 Heart disease Father Other ([id number]) Brother accident Coronary artery disease Father Diabetes [...] , Rfl: ergocalciferol (Vitamin D-2) 1.25 MG (64976 UT) capsule, Take 1.25 mg by mouth [...] 2 times daily., Disp: , Rfl: pancrelipase, Fyn-Dcum-Orvw, (Creon) [id number] units capsule, Take by mouth 3 times [...] normal. Laboratory Tests: No results found for: WBC, HGB, HCT, MCV, PLT Lab Results Component Value Date GLUCOSE 195 [...] and Plan: 1. Coronary artery disease involving s[place]tz tribe coronary artery of siletz tribe heart without angina pectoris 2. Dyslipidemia James [...] made to ensure accuracy; however, inadvertent computerized marble setter errors may be present. documented in this encounter [facility] 12-13-2022 History of Present illness Narrative Images [...] History: Diagnosis Date Acute kidney injury (CMS/HCC) ([facility]) 09/11/2015 CAD in [place] artery 08/08/2017 COPD (chronic obstructive pulmonary disease) ([facility]) Developmental disorder Diabetes mellitus ([facility]) Esophageal reflux Gastritis see EGD on 03/29/2016 GERD (gastroesophageal reflux disease) Hyperlipidemia IBS (irritable bowel syndrome) Mixed Obesity Osteoarthritis Pain management Plantar fasciitis, bilateral Unspecified sleep apnea Urinary retention Past Surgical History: Procedure Laterality Date CHOLECYSTECTOMY 03/29/20162010 COLONOSCOPY 05/23/2017 COLONOSCOPY 03/29/2016, repeat in 10 years, Dr. Ness, normal except internal hemorrhoid COLONOSCOPY N/A 07/18/2022 Performed by David Chen MD at [facility] OR CORONARY ARTERY BYPASS GRAFT FOOT [...] per week. ergocalciferol (Vitamin D-2) 1.25 MG (36262 UT) capsule Take 1.25 mg by mouth [...] Exam: BP 102/64 Pulse 72 Ht 6' 2 (1.88 m) Wt 295 lb (134 kg) BMI 37.88 kg/m Physical Exam Abdominal: Comments: Mild tenderness Treatment:Patient counseled on risks, benefits, and alternatives of treatment plan at length while in the office today. Patient states an understanding and willingness to proceed with plan. No orders of the defined types were placed in this encounter. Follow Up: Start on Site Organic diet to more fruits and vegatbiles and avoid all milk produts and no coffe but his colon was normal David Rodriguez MD, @TODAYNEATE@ documented in this encounter [facility] 07-18-2022 Note Formatting of this n ote might be different from the original. Discharged to [facility] (long-term resident). Accompanied by Arabella reyes . AVS and education reviewed with patient and Arabella, both verbalized understanding. Mode of transportation [place], patient accompanied with Arabella for transportation. Belongings sent. [facility] 07-18-2022 Note Formatting of this n ote might be different from the original. Discharged to [facility] (long-term resident). Accompanied by Arabella reyes . AVS and education reviewed with patient and Arabella, both verbalized understanding. Mode of transportation [place], patient accompanied with Arabella for transportation. Belongings sent. [facility] 07-18-2022 Miscellaneous Notes Discharged to [facility] (long-term resident). Accompanied by Arabella reyes . AVS and education reviewed with patient and Arabella, both verbalized understanding. Mode of transportation [place], patient accompanied with Arabella for transportation. Belongings sent. Images from the original note were not included. DEPARTMENT OF SURGERY OPERATIVE NOTE DATE OF PROCEDURE: 07/18/2022 ATTENDING SURGEON: David Rodriguez MD MATTRESS FILLING MACHINE TENDER: 0 PREOPERATIVE DIAGNOSIS: colon bleed POSTOPERATIVE DIAGNOSIS: ulcer gastric, divertiulosisi, hemorroids OPERATION: egd, colonoscopy ANESTHESIA: ga ESTIMATED BLOOD LOSS: Malaysian HISTORY: patient with anemoia and abdominal pain and rectal bleeding PROCEDURE: egd show hiatal hernia, small gastric ulcers Colon to ICV , shows a few ticks lots of stool no polyps tumor, few ticks and hemorroids 1345 blood sugar 85. Per report, pt had low blood sugar in the AM was given 2 glucose tabs documented in this encounter [facility] 07-18-2022 Hospital Discharge instructions Lashay Wong RN - 07/18/2022 3:[address] Rodriguez's office: [phone] Anesthesia and Activity: DO NOT drive, operate [...] attachments cannot be sent through Care Everywhere.Colonoscopy (Malaysian)Upper GI Endoscopy (Malaysian)documented in this encounter [facility] 07-18-2022 Note Formatting of this n ote might be different from the original. Images from the original note were not included. DEPARTMENT OF SURGERY OPERATIVE NOTE DATE OF PROCEDURE: 07/18/2022 ATTENDING SURGEON: David Rodriguez MD MATTRESS FILLING MACHINE TENDER: 0 PREOPERATIVE DIAGNOSIS: colon bleed POSTOPERATIVE DIAGNOSIS: ulcer gastric, divertiulosisi, hemorroids OPERATION: egd, colonoscopy ANESTHESIA: ga ESTIMATED BLOOD LOSS: Malaysian HISTORY: patient with anemoia and abdominal pain and rectal bleeding PROCEDURE: egd show hiatal hernia, small gastric ulcers Colon to ICV , shows a few ticks lots of stool no polyps tumor, few ticks and hemorroids [employer] Phone: 07-18-2022 Note Formatting of this n ote might be different from the original. Images from the original note were not included. DEPARTMENT OF SURGERY OPERATIVE NOTE DATE OF PROCEDURE: 07/18/2022 ATTENDING SURGEON: David Rodriguez MD MATTRESS FILLING MACHINE TENDER: 0 PREOPERATIVE DIAGNOSIS: colon bleed POSTOPERATIVE DIAGNOSIS: ulcer gastric, divertiulosisi, hemorroids OPERATION: egd, colonoscopy ANESTHESIA: ga ESTIMATED BLOOD LOSS: Malaysian HISTORY: patient with anemoia and abdominal pain and rectal bleeding PROCEDURE: egd show hiatal hernia, small gastric ulcers Colon to ICV , shows a few ticks lots of stool no polyps tumor, few ticks and hemorroids [employer] Phone: 07-18-2022 History and physical note Subjective [...] History: Diagnosis Date Acute kidney injury (CMS/HCC) ([facility]) 09/11/2015 CAD in [place] artery 08/08/2017 COPD (chronic obstructive pulmonary disease) ([facility]) Developmental disorder Diabetes mellitus ([facility]) Esophageal reflux Gastritis see EGD on [...] (See Comments), Unknown unknown Vital Signs: Ht 6'2 Wt 300 BP 117/56 Pox 98% HR [...] HLD Tobacco use Anemia Ibs Screening colonoscopy [facility] 07-18-2022 History and physical note Subjective James [...] History: Diagnosis Date Acute kidney injury (CMS/HCC) ([facility]) 09/11/2015 CAD in [place] artery 08/08/2017 COPD (chronic obstructive pulmonary disease) ([facility]) Developmental disorder Diabetes mellitus (HCC) Esophageal [...] (See Comments), Unknown unknown Vital Signs: Ht 6'2 Wt 300 BP 117/56 Pox 98% HR [...] Ibs Screening colonoscopy documented in this encounter [facility] [employer] 07-18-2022 Note Formatting of this n ote might be different from the original. 1345 blood sugar 85. Per report, pt had low blood sugar in the AM was given 2 glucose tabs [employer] 07-18-2022 Note Formatting of this n ote might be different from the original. 1345 blood sugar 85. Per report, pt had low blood sugar in the AM was given 2 glucose tabs [employer] 06-07-2022 History of Present illness Narrative [facility] HPI: James Reyes is a 66 y.o. [...] History: Diagnosis Date Acute kidney injury (CMS/HCC) ([facility]) 09/11/2015 CAD in [place] tribe artery 08/08/2017 COPD (chronic obstructive pulmonary disease) ([facility]) Developmental disorder Diabetes mellitus ([facility]) Esophageal reflux Gastritis see EGD on [...] attack Mother 61.00 Heart disease Father Other ([id number]) Brother accident Coronary artery disease Father Diabetes Father @[facility]@ Assessment: 66 y.o. male in need of [...] as indicated. . documented in this encounter [facility] 05-06-2022 Miscellaneous Notes Addended by: WILMA GRANT on: 05/06/2022 11:06 AM Modules accepted: Orders documented in this encounter [facility] 05-06-2022 History of Present illness Narrative Assessment/Plan: 1. Type 2 diabetes mellitus without retinopathy (HCC) Patient educated on today's exam findings, importance of tight glucose control, and the importance of continued follow up with primary care physician and/or health companion; monitor at complete exam. Diabetes Eye [facility] [...] evaluation c RRE documented in this encounter [facility] 05-06-2022 Instructions Wilma Grant OD - 05/06/2022 10:43 AM EST Images from [...] your last [employer] Grid check, please call [phone] to schedule an appointment. . Dr. Grant [...] BLINK NEVER use any product marked as gets the red out. Drops marked as 'get the red out' [...] above listed brands. documented in this encounter [facility] 07-28-2021 Note HNO ID: [id number] Author: Aydee Juarez RN Service: Care Management Author Type: Registered Nurse Type: Care Mgt Progress Note Filed: 07/28/2021 3:01 PM Note Text: CARE MANAGEMENT DISCHARGE NOTE SERVICE DATE: 07/28/2021 SERVICE TIME: 2:59 PM LOS: 7 days Admission Date: 07/21/2021 DISCHARGE ARRANGEMENT (list agency and phone number) Discharge Arrangement: Immunopathologist Acute Care Provider Name: [facility] CAREGIVER ASSESSMENT: Called and updated pt's brother Sreekanth about DC to [facility] today at 7pm. HANDOFF COMMUNICATION: RN to RN report TRANSPORTATION ARRANGEMENTS: Transportation Arrangements: Ambulance/[facility] Transportation Agency and Phone #:: [facility] ( [facility] ) [phone] / [phone] Date of Trip: 07/28/21 Time of Trip: 1900 Type of Service: S Non-emergency Is Patient Medicaid Pending?: No [employer] Location: [facility] Destination: [facility] Financial Care Management Responsibility: None ADDITIONAL CONTACT RESOURCES: Text message to Pt's ROBBIE Marrufo with facility info. SIGNATURE: Aydee Juarez RN PATIENT NAME: James Reyes DATE: July 28, 2021 TIME: 2:59 PM PAGER/CONTACT #: [phone] [facility] 07-28-2021 Note HNO ID: [id number] Author: Dayana Hill MD Service: Critical Care Author Type: Physician Type: Progress Notes Filed: 07/28/2021 12:42 PM Note Text: [facility] STAFF PHYSICIAN NOTE OF PERSONAL INVOLVEMENT IN [...] 07/27/2021 Neut% 86.9 07/21/2021 Lymph% 4.7 07/21/2021 [place]% 6.7 07/21/2021 Baso% 0.3 07/21/2021 Abs Neut 11.89 07/21/2021 Abs [place] 0.92 07/21/2021 Abs Eosin 0.12 07/21/2021 Abs [...] with insulin regimen (more content not included)... [facility] 07-28-2021 Note HNO ID: [id number] Author: Myrna Banks DO Service: Critical Care [...] ? Mr. Reyes initially presented to the [facility] ED from [facility] on 07/21/2021 for evaluation of chest [...] PRN acetaminophen, 650 (more content not included)... [facility] 07-27-2021 Note HNO ID: [id number] Author: Dayana Hill MD Service: Critical Care Author Type: Physician Type: Progress Notes Filed: 07/27/2021 4:27 PM Note Text: [facility] STAFF PHYSICIAN NOTE OF PERSONAL INVOLVEMENT IN [...] 07/27/2021 Neut% 86.9 07/21/2021 Lymph% 4.7 07/21/2021 [place]% 6.7 07/21/2021 Baso% 0.3 07/21/2021 Abs Neut 11.89 07/21/2021 Abs [place] 0.92 07/21/2021 Abs Eosin 0.12 07/21/2021 Abs [...] (07/26/212023) Admit Weight: 106.6 kg (235 lb) (07/21/21 [...] per ID. -Co (more content not included)... [facility] 07-27-2021 Note HNO ID: [id number] Author: Aydee Juarez RN Service: Care Management Author Type: Registered Nurse Type: Care Mgt Progress Note Filed: 07/27/2021 11:12 AM Note Text: CARE MANAGEMENT PROGRESS NOTE SERVICE DATE: 07/27/2021 SERVICE TIME: 11:01 AM LOS: 6 days Needs Prior to Discharge: To Be Determined;OT/PT Evaluation;Discharge Transportation DC plan: Return to [facility] date: TBD Barrier: Pt wears 2-4L O2 ant Tere Campbell. On 6-8L NC now. Requet to facility to check on max O2 amount able to provide. Called and reviewed planning with brother- Sreekanth. Aware of plan for possible transfer to floor. Would like update about thoracentesis- not done yesterday. Message relayed to Dr Hill. SIGNATURE: Aydee Juarez RN PATIENT NAME: James Reyes DATE: July 27, 2021 TIME: 11:01 AM PAGER/CONTACT #: [phone] [facility] 07-27-2021 Note HNO ID: [id number] Author: Myrna Banks DO Service: [facility] Author Type: Resident Type: Progress Notes Filed: [...] 160* 417* -- (more content not included)... [facility] 07-26-2021 Note HNO ID: [id number] Author: Rosalie Dorantes DO Service: Critical Care Author Type: Resident Type: Plan of Care Filed: 07/26/2021 2:02 PM Note Text: Spoke with pt's brother, Sreekanth, and gave updates. Answered their questions to their satisfaction. Rosalie Dorantes DO Internal Medicine, PGY-2 07/26/21 2:01 PM [facility] 07-26-2021 Note HNO ID: [id number] Author: Rosalie Dorantes DO Service: Family Practice Author Type: Resident Type: Progress Notes Filed: 07/26/2021 1:59 PM Note Text: Attestation signed by Dayana Hill MD at 07/26/2021 3:32 PM [facility] STAFF PHYSICIAN NOTE OF PERSONAL INVOLVEMENT IN [...] (!) 54 65 62 Resp: 15 17 19 Temp: 36.6 ?C (97.88 ?F) 36.6 ?C (97.88 ?F) 36.6 ?C (97.88 ?F) TempSrc: SpO2: 91% 93% 92% 91% Weight: Height: CBC with diff: WBC 9.59 07/26/2021 RBC 3.98 07/26/2021 Hemoglobin 11.1 07/26/2021 Hematocrit 35.2 07/26/2021 MCV 88.4 07/26/2021 MCH 27.9 07/26/2021 MCHC 31.5 07/26/2021 RDW-CV 15.0 07/26/2021 Platelet Count 379 07/26/2021 MPV 10.1 07/26/2021 Neut% 86.9 07/21/2021 Lymph% 4.7 07/21/2021 [place]% 6.7 07/21/2021 Baso% 0.3 07/21/2021 Abs Neut 11.89 07/21/2021 Abs [place] 0.92 07/21/2021 Abs Eosin 0.12 07/21/2021 Abs [...] 12:10 PM --------- (more content not included)... [facility] 07-25-2021 Note HNO ID: [id number] Author: Steven Castellano MD Service: Critical Care Author Type: Resident Type: Progress Notes Filed: 07/25/2021 1:06 PM Note Text: Attestation signed by Abhijit Howell MD at 07/25/2021 10:38 PM [facility] STAFF PHYSICIAN NOTE OF PERSONAL INVOLVEMENT IN [...] Output: Intake/Output Summary (Last 24 hours) at 07/25/20218 Last data filed at 07/25/2021 2100 Gross [...] 52* 57* 29.5 CBC: Recent Labs 07/25/21 0317 07/24/21 0529 07/23/21 0044 07/22/21 [...] the last 168 hours. BMP: Recent Labs 07/25/21111407/25/2131607/24/21 0529 07/23/21 0730 07/23/21 0044 07/22/21 0958 [...] 1.74* -- 1.73* 1.52* CHEM: Recent Labs 07/25/21111407/25/2131607/24/21 0529 07/23/21 0730 07/23/21 0044 07/22/21 095 (more content not included)... [facility] 07-24-2021 Note HNO ID: [id number] Author: John Jay DO Service: Critical Care Author Type: Resident Type: Progress Notes Filed: 07/24/2021 5:41 PM Note Text: Attestation signed by Abhijit Howell MD at 07/24/2021 10:12 PM [facility] STAFF PHYSICIAN NOTE OF PERSONAL INVOLVEMENT IN [...] Output: Intake/Output Summary (Last 24 hours) at 07/24/2021 2211 Last data filed at 07/24/2021 1600 Gross [...] and soft and NT. +BSs. 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 07/24/21 CXR: RESULT: This is [...] sternotomy defect. DATA: BLOOD GAS: Recent Labs 07/23/2172907/22/21 0958 07/21/21 0954 VPH -- -- 7.315 VPC2 62* 63* 60.7* VPO2C 52* 57* 29.5 CBC: Recent Labs 07/24/2129 07/23/21 0044 07/22/2134207/21/21 1020 WBC 15.57* 18.08* 15.27* 13.68* HB [...] the last 168 hours. BMP: Recent Labs 07/24/21 0529 07/23/21 0730 07/23/21 0044 07/22/21 0958 07/22/21 0343 07/21/21 1020 GLUC 417* -- 319* -- 118* 61* NA 129* -- 132* -- 137 140 K 5.4* -- 5.2* -- 5.0 4.5 CHLOR 93* -- 95* -- 100 101 CO2 24 27 26 26 27 27 ANION 12 -- 11 -- 10 12 BUN 55* -- 42* -- 29* 25* CREAT 1.58* -- 1.74* -- 1.73* 1.52* CHEM: Recent Labs 07/24/21 0529 07/23/21 0730 07/23/21 0044 07/22/21 0958 07/22/21 0343 07/21/21 1020 ALB 2.5* -- 3.0* -- -- 3.3* TPROT -- -- -- -- -- 7.0 CA 8.5 -- 8.8 -- 8.5 9.2 MG -- -- -- -- 2.0 2.0 ICAL -- 1.12 -- 1.20 -- -- HEPATIC: Recent Labs 07/21/21 1020 ALKPHOS 88 ALT 10 AST 10* TBILI 0.3 CARDIAC: Recent Labs 07/24/21 0529 07/21/21 1020 PBNP 937* 872* / Blood cultures NG x 2 days 07/22 [...] Solumedrol to 30mg (more content not included)... [facility] 07-24-2021 Note HNO ID: [id number] Author: Interface Note Service: ? Author Type: ? Type: Progress Notes Filed: 07/24/2021 3:10 AM Note Text: Epic Scheduled Downtime: 07/24/2021 1:08:47 AM to 07/24/2021 2:53:47 AM [facility] 07-23-2021 Note HNO ID: [id number] Author: Steven Castellano MD Service: Critical Care Author Type: Resident Type: Progress Notes Filed: 07/23/2021 2:22 PM Note Text: Attestation signed by Abhijit Howell MD at 07/23/2021 7:22 PM [facility] STAFF PHYSICIAN NOTE OF PERSONAL INVOLVEMENT IN CARE I have reviewed the progress note obtained and documented by the resident and I personally participated in the white components. I have discussed the case and management of the patient's care. The following comments revise or confirm relevant white components of the note. Says may feel a little better or about the same. [employer] DEVELOPER cough. No chest pain. Now on BiPAP [...] sternotomy defect. DATA: BLOOD GAS: Recent Labs 07/23/2172907/22/21 0958 07/21/21 0954 VPH -- -- 7.315 VPC2 62* 63* 60.7* VPO2C 52* 57* 29.5 CBC: Recent Labs 07/23/214307/22/2134207/21/21 1020 WBC 18.08* 15.27* 13.68* HB 11.5* 12.3* 13.0 HCT 37.8* 41.8 41.8 PLT 359 357 407* MCV 92.0 96.1 90.7 RDWCV 15.2* 15.5* 15.7* NEUTP -- -- 86.9 ABSNEUT -- -- 11.89* LYMPHP -- -- 4.7 MONOP -- -- 6.7 COAG: No results for input(s): APTT, INR in the last 168 hours. BMP: Recent Labs 07/23/2172907/23/214307/22/2195707/22/2134207/21/21 1020 GLUC -- 319* -- 118* 61* NA -- 132* -- 137 140 K -- 5.2* -- 5.0 4.5 CHLOR -- 95* -- 100 101 CO2 27 26 26 27 27 ANION -- 11 -- 10 12 BUN -- 42* -- 29* 25* CREAT -- 1.74* -- 1.73* 1.52* CHEM: Recent Labs 07/23/2172907/23/214307/22/2195707/22/2134207/21/21 1020 ALB -- 3.0* -- -- 3.3* TPROT -- -- -- -- 7.0 CA -- 8.8 -- 8.5 9.2 MG -- -- -- 2.0 2.0 ICAL 1.12 -- 1.20 -- -- HEPATIC: Recent Labs 07/21/21 1020 ALKPHOS 88 ALT 10 AST 10* TBILI 0.3 CARDIAC: Recent Labs 07/21/21 1020 PBNP 872* 6 Blood cultures NG x 2 days 07/22 [...] units q 8hr Patient/Family Updated: Patient, James Reyes, contacted. They were updated on the patient's goals of care, medical plan for the day, industrial methods consultant recommendations, medical disposition and current medical [...] the following organ (more content not included)... [facility] 07-22-2021 Note HNO ID: [id number] Author: Aydee Juarez RN Service: Care Management Author Type: Registered Nurse Type: Care Mgt Initial Assessment Filed: 07/22/2021 2:48 PM Note Text: CARE MANAGEMENT: ASSESSMENT AND DISCHARGE PLAN SERVICE DATE: July 22, 2021 SERVICE TIME: 2:37 PM PRIMARY CARE PHYSICIAN: Chelle Troncoso MD ADMISSION STATUS: Inpatient Needs Prior to Discharge: To Be Determined MEDICAL: [place] Health Insurance: Medicaid Last Discharge Date: [...] None Has the Patient Been in a Detention Facility in the Past 30 days?: Yes Location and Dates: [facility] SOCIAL: Living Arrangements: Nursing Facility Lives With: [...] Completely I feel financially burdened by my [id number]-[id number] expenses for my prescription medication:: 0 - Disagree Completely Risk Score: 0 Patient is categorized as: Low risk < 2 Are you interested in bedside delivery of your medications? No Is Patient Psychosocially Complex?: No ASSESSMENT AND PLAN: Medical Needs: Medical Needs: None Psychosocial Needs: Psychosocial Needs: None FREEDOM OF CHOICE EXPLAINED: [place] of Choice Given: Yes POTENTIAL TRANSITION PLANS Detention Facility/Intermediate Care Facility Pt lives at [facility]. Pt plans to return. Facility assists with meds and meals. Pt requests call to [facility] [phone]. Called and left message. Pt may need O2. Message to facility to check if pt on O2. SIGNATURE: Aydee Juarez RN PATIENT NAME: James Reyes DATE: July 22, 2021 TIME: 2:37 PM PAGER/CONTACT #: [phone] [facility] 07-22-2021 Note HNO ID: [id number] Author: Abhijit Howell MD Service: Critical Care Author Type: Physician Type: Progress Notes Filed: 07/22/2021 2:48 PM Note Text: [facility] STAFF PHYSICIAN NOTE OF PERSONAL INVOLVEMENT IN [...] Urine Ags (-) BLOOD GAS: Recent Labs 07/22/2195707/21/21 0954 VPH -- 7.315 VPC2 63* 60.7* VPO2C 57* 29.5 CBC: Recent Labs 07/22/2134207/21/21 1020 WBC 15.27* 13.68* HB 12.3* 13.0 HCT 41.8 41.8 PLT 357 407* MCV 96.1 90.7 RDWCV 15.5* 15.7* NEUTP -- 86.9 ABSNEUT -- 11.89* LYMPHP -- 4.7 MONOP -- 6.7 COAG: No results for input(s): APTT, INR in the last 168 hours. BMP: Recent Labs 07/22/2195707/22/2134207/21/21 1020 GLUC -- 118* 61* NA -- [...] falure 2. RLL HAP 3. AE-COPD 4. JESSIKA 5. Leukocytosis 6. Type II IDDM 7. [...] Lyrica 100mg tid Patient/Family Updated: Patient, James Reyes, contacted. They were updated on the patient's goals of care, medical plan for the day, industrial methods consultant recommendations, medical disposition and current medical [...] below. Time I (more content not included)... [facility] 07-22-2021 Note HNO ID: [id number] Author: Nancy Gong RP Service: Pharmacy Author Type: Pharmacist Type: Plan of Care Filed: 07/22/2021 1:20 PM Note Text: PHARMACY MEDICATION REVIEW Patient Name: James Reyes : 1955 The following medications were updated within the RN ADMIT medication list: Medications ADDED to RN ADMIT medication list ? All medications below were added to the RN ADMIT medication list. Medications CHANGED on RN ADMIT medication list ? N/A Medications REMOVED from RN ADMIT medication list ? Removed all previous entries including: ? Flomax ? Simethicone ? Percocet ? Metformin ? Lovastatin ? Insulin lispro ? lantus ? Folic acid ? Fenofibrate entries ? Aspirin ? Atorvastatin ? Bisacodyl ? Ferrous sulfate Additional comments: N/A The below information represents the best possible medication history: Yes Medication history completed by: Pharmacist: Nancy Gong RPh Source of history: prison/Other [facility] Order Summary Report Medication nonadherence identified: No barriers noted Reconciliation completed: Yes Completed by: ICU team. All RN ADMIT medications addressed by LIP Patient interested in Bedside Delivery Services or using CC OP Pharmacy at discharge? No; N/A Preferred outpatient pharmacy: [facility] [address] [place] [address], [place] [address] [address] [facility] [phone] Allergies: Penicillins Unknown Teramycin [Oxytetra* Unknown Prior [...] nasal spray Yes Yes Sig: Use 1 [place] in the nose every 12 hours as needed (congestion). tamsulosin (FLOMAX) 0.4 mg Yes Yes Sig: Take 0.4 mg by mouth twice daily. tiZANidine (ZANAFLEX) 2 mg tablet Yes Yes Sig: Take 2 mg by mouth three times daily. Morning, afternoon, and bedtime for spasms Facility-Administered Medications: None Nancy Gong [facility] 07/22/2021 [facility] 07-22-2021 Note HNO ID: [id number] Author: Steven Castellano MD Service: Critical Care [...] 41.44] Mr. Reyes initially presented to the [facility] ED from [facility] on 07/21/2021 for evaluation of chest pain, dyspnea and cough, after being found to be saturating ~80% on RA. Upon initial evaluation in the ED, the patient was found to be hypoxic to ~80% requiring the use of NC and then later NRB. He was otherwise hemodynamically stable. Initial labs in the ED were significant for Glucose 56 (received amp D50), Investigator Vice: 1.52, WBC: 13.68, Plt: 407, and NT-ProBNP [...] Saturating ~90% on BiPAP Micro: Blood Culture (07/21): No Growth at 1 Day MRSA Nares (07/21): Pending Labs: BMP Reviewed: Na: 137, K: 5.0, Bicarb: 27, Anion Gap: 10, Investigator Vice: 1.73 CBC Reviewed: WBC: 15.27, Hgb: 12.3 [...] Summary (Last 2 (more content not included)... [facility] 07-21-2021 Note HNO ID: [id number] Author: Juanito Morgan MD Service: Pulmonary Disease Author Type: Physician Type: Progress Notes Filed: 07/21/2021 3:58 PM Note Text: [facility] STAFF PHYSICIAN NOTE OF PERSONAL INVOLVEMENT IN [...] pneumonia, possible endobronchial lesion Current heavy smoker IMNERVA not on CPAP - sats frop to [...] procedures. SIGNATURE: Juanito Morgan MD [facility] PAGER:[phone] DATE of SERVICE: July 21, 2021 [facility] 07-21-2021 Note HNO ID: [id number] Author: Tiffany Moran stephen Service: Pharmacy Author Type: Pharmacist Type: Progress [...] care for this patient. Signature: Tiffany Moran [facility] Pager/Extension: [phone] [facility] 05-06-2019 Hospital Discharge instructions Barry Guadalupe MD - 05/06/2019 Discontinue lisinopril Discontinue Lasix No citrus foods Discontinue potassium chloride The following attachments cannot be sent through Care Everywhere.Hyperkalemia (Malaysian)documented in this encounter [facility] Work Phone: 04-12-2019 Hospital Discharge instructions James Begum MD - 04/12/2019 Call your doctor for follow-up care. The following attachments cannot be sent through Care Everywhere.Back Pain (Malaysian)documented in this encounter [facility] Work Phone: Evaluation note Diagnosis Acute exacerbation of chronic low back pain- Primary documented in this encounter [facility] Work Phone: Evaluation note* Diagnosis Hyperkalemia- Primary Hyperpotassemia Acute renal failure, unspecified acute renal failure type (HCC) documented in this encounter [facility] Work Phone: Evaluation note* Diagnosis Type 2 diabetes mellitus without retinopathy (HCC)- Primary Type II or unspecified type diabetes mellitus without mention of complication, not stated as uncontrolled Nonexudative age-related macular degeneration, bilateral, early dry stage Cataract, nuclear sclerotic, both eyes Senile nuclear sclerosis Papilloma of left upper eyelid Tearing eyes Epiphora, unspecified as to cause [facility] Diagnosis Irritable bowel syndrome with both constipation and diarrhea- Primary Anemia, unspecified Mixed irritable bowel syndrome Encounter for screening for malignant neoplasm of colon [facility] Diagnosis Irritable bowel syndrome with both constipation and diarrhea- Primary Anemia, unspecified Mixed irritable bowel syndrome Encounter for screening for malignant neoplasm of colon [facility] noteNo assessment information availableWSouth[facility] Work Phone: Evaluation note* Diagnosis Functional diarrhea- Primary [facility] Diagnosis Coronary artery disease involving siletz tribe coronary artery of siletz tribe heart without angina pectoris- Primary Dyslipidemia Other and unspecified hyperlipidemia [facility] Diagnosis Chest pain- Primary Unspecified chest pain Chest pain, unspecified type Other chest pain [facility] Diagnosis Coronary artery disease involving siletz tribe coronary artery of siletz tribe heart without angina pectoris- Primary Stable angina pectoris [facility]* Diagnosis Type 2 diabetes mellitus without retinopathy (HCC)- Primary Type II or unspecified type diabetes mellitus without mention of complication, not stated as uncontrolled Nonexudative age-related macular degeneration, bilateral, early dry stage Cataract, nuclear sclerotic, both eyes Senile nuclear sclerosis documented in [facility] encounter [facility]* Diagnosis Coronary artery disease involving siletz tribe coronary artery of siletz tribe heart without angina pectoris Stable angina pectoris (HCC) [facility]* Diagnosis CAD in siletz tribe artery Dyslipidemia Other and unspecified hyperlipidemia [facility] Diagnosis Chronic dental caries extending to pulp- Primary Dental caries extending into pulp [facility] Diagnosis Caries- Primary Unspecified dental caries [facility] Diagnosis Chronic dental caries extending to pulp- Primary Dental caries extending into pulp [facility]* Diagnosis Closed head injury, initial encounter- Primary Closed head injury, initial encounter Fall, initial encounter Pain in both knees, unspecified chronicity [facility] Diagnosis Coronary artery disease involving coronary bypass graft of siletz tribe heart without angina pectoris- Primary Chest pain, unspecified type Mixed hyperlipidemia [facility] Diagnosis Coronary artery disease involving siletz tribe coronary artery of siletz tribe heart without angina pectoris Other congestive heart failure (HCC) [facility] Diagnosis Irritable bowel syndrome with both constipation and diarrhea- Primary [facility] Diagnosis Recurrent UTI Urinary tract infection, site not specified [facility] Diagnosis Elevated PSA- Primary Elevated prostate specific antigen (PSA) BPH with lower urinary tract symptoms without urinary obstruction Urge incontinence Gross hematuria Recurrent UTI Urinary tract infection, site not specified Retention of urine, unspecified Recurrent UTI Urinary tract infection, site not specified [facility] Diagnosis Acute hypercapnic respiratory failure (HCC)- Primary Acute hypercapnic respiratory failure (HCC) Hypercapnia Other dyspnea and respiratory abnormality Hypoxia Hypoxemia [facility] Diagnosis BPH with lower urinary tract symptoms without urinary obstruction Urge incontinence Elevated PSA Elevated prostate specific antigen (PSA) Gross hematuria [facility]* Diagnosis Hematemesis- Primary Hematemesis Coffee ground emesis Hematemesis documented in this encounter [facility] for referral (narrative)No reason for referral information availableWSouthwest General [facility] Work Phone: Summary Purpose Family History No Family History Records FoundNo Family History Records FoundNo Family History Records FoundNo Family History Records FoundNo Family History Records FoundNo Family History Records FoundNo Family History Records FoundNo Family History Records FoundNo Family History Records Found Advance Directives No Advanced Directives Records FoundDocuments on File Type Date Recorded 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 Expl anation DNR (Do Not Resuscitate) 10/16/2017 Date Activated Date Inactivated Comments 11/30/2023 1:00 AM Date Activated Date Inactivated Comments 04/24/2023 1:27 AM 04/24/2023 3:38 PM Documents on File Type Date Recorded 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 Expl anatcarrie Advance Directives and Living Will Power of Matrix Bath Operator Latest Code Status on File Code Status [...] Documents on File Type Date Recorded 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 Verito anatcarrie DNR (Do Not Resuscitate) 10/16/2017 Latest Code [...] and Reason for Visit Chief Complaint LABWORK GROUP HOME LAB WORK Chief Complaint LABWORK GROUP HOME LAB WORK GROUP HOME LABWORK Chief Complaint GROUP HOME LAB WOR K Chief Complaint GROUP HOME LAB WOR K GROUP HOME LAB WORK Chief Complaint Admit Date GROUP HOME LAB WORK March 26 5:00am LABWORK April 01, 2024 5:00am GROUP HOME LAB WORK May 14, 2024 7:35am GROUP HOME LAB WORK July 01, 2024 5 :00am Reason for Referral Specialty Diagnoses / Procedures Referred By Chely rosales Referred To Contact Cardiology Diagnoses Coronary artery disease involving siletz tribe coronary artery of siletz tribe heart without angina pectoris Stable angina pectoris Procedures Stress echocardiogram (TTE) dobutamine with contrast, bubble, strain, and 3D PRN order panel ID ECHO TTHRC R-T 2D W/WO M-MODE COMPLETE REST&ST ID ECHO TTHRC R-T 2D W/WO M-MODE REST&STRS CONT ECG ID DOPPLER ECHOCARD PULSE WAVE W/SPECTRAL DISPLAY ID DOP ECHOCARD COLOR FLOW VELOCITY MAPPING ID CV STRS TST XERS&/OR RX CONT ECG W/O I&R ID CV STRS TST XERS&/OR RX CONT ECG TRCG ONLY ID CV STRS TST XERS&/OR RX CONT ECG I&R ONLY Mingo Gavin, 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 - LOUNGE 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 [address] [place], [place] [id number] Referral ID Status Reason Start Date Expiration Date V isits Requested Visits Authorized [id number] Pending Review 05/12/2023 05/11/2024 1 1 Specialty Diagnoses / Procedures Referred By Chely rosales Referred To Contact Cardiology Diagnoses Coronary artery disease involving siletz tribe coronary artery of siletz tribe heart without angina pectoris Stable angina pectoris (HCC) Procedures Stress echocardiogram (TTE) dobutamine with contrast, bubble, strain, and 3D PRN order panel ID ECHO TTHRC R-T 2D W/WO M-MODE COMPLETE REST&ST ID ECHO TTHRC R-T 2D W/WO M-MODE REST&STRS CONT ECG ID DOPPLER ECHOCARD PULSE WAVE W/SPECTRAL DISPLAY ID DOP ECHOCARD COLOR FLOW VELOCITY MAPPING ID CV STRS TST XERS&/OR RX CONT ECG W/O I&R ID CV STRS TST XERS&/OR RX CONT ECG TRCG ONLY ID CV STRS TST XERS&/OR RX CONT ECG I&R ONLY Mingo Gavin, 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 - LOUNGE 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 [address] [place] [address] Referral ID Status Reason Start Date Expiration Date Visits Re quested Visits Authorized [id number] Closed 05/12/2023 05/11/2024 1 1 Specialty Diagnoses / Procedures Referred By Chely rosales Referred To Contact Dentistry Diagnoses Chronic dental caries extending to pulp Rony Arriaza DMD, MD [address] [place] [address] [place] [address] Referral ID Status Reason Start Date Expiration Date V isits Requested Visits Authorized [id number] Authorized 09/14/2023 03/12/2024 3 3 Scheduling Instructions Please call the Dental Clinic at [facility] at to schedule an appointment if one was not made for you today. Specialty Diagnoses / Procedures Referred By Chely rosales Referred To Contact Oral Surgery Diagnoses Caries Procedures EXTRACTION ERUPTED TOOTH/EXR Rony Arriaza DMD, MD [address] [place] [address] Referral ID Status Reason Start Date Expiration Date V isits Requested Visits Authorized [id number] Pending Review 09/06/2023 09/05/2024 1 1 Scheduling [...] your procedure, you will be contacted with [id number] costs or next steps. All self-pay payments [...] the procedure: You also MUST have a parts delivery driver/escort >18yrs old present to take you [...] Contact Cardiology Diagnoses Coronary artery disease involving siletz tribe coronary artery of siletz tribe heart without angina pectoris Other congestive heart failure (HCC) Procedures Transthoracic echocardiogram (TTE) complete with contrast, bubble, strain, and 3D PRN ID ECHO TTHRC R-T 2D W/WOM-MODE COMPL SPEC&COLR D ID TTE W OR WO FOL WCCARTER,Suzy Cordova MD [address] [facility] [address] [place] [address] [facility] Non-Invasive Cardiology [address] [place] [phone] Referral ID Status Reason Start Date Expiration Date V isits Requested Visits Authorized [id number] Closed Perform Procedure 04/13/2022 10/10/2022 1 1 Additional Source Comments (unrecognized sect ion and content) No Status Records FoundNo Status Records FoundNo Status Records FoundNo Status Records FoundNo Status Records FoundNo Status Records FoundNo Status Records FoundNo Status Records FoundNo Status Records Found INFORMATION SOURCE (unrecogn ized section and content) DATE CREATED AUTHOR 01/30/2018 [facility] DATE CREATED AUTHOR AUTHOR'S ORGANIZ ATION 03/07/2018 [facility] DATE CREATED AUTHOR AUTHOR'S ORGANIZ ATION 08/10/2018 [facility] DATE CREATED AUTHOR AUTHOR'S ORGANIZ ATION 05/06/2019 [facility] DATE CREATED AUTHOR AUTHOR'S ORGANIZ ATION 07/29/2021 [facility] DATE CREATED AUTHOR AUTHOR'S ORGANIZ ATION 06/07/2023 [facility] DATE CREATED AUTHOR AUTHOR'S ORGANIZ ATION 10/12/2023 [facility] DATE CREATED AUTHOR AUTHOR'S ORGANIZ ATION 07/26/2024 [facility] DATE CREATED AUTHOR AUTHOR'S ORGANIZ ATION 09/23/2024 [facility] Source Comments (unrecognize d section and content) In the event this informatio n is protected by the Federal Confidentiality of Alcohol and Drug Abuse Patient Records regulations: The Federal rules restrict any use of the information to criminally investigate or prosecute any alcohol or drug abuse patient.[facility] the event this information is protected by the Federal Confidentiality of Alcohol and Drug Abuse Patient Records regulations: The Federal rules restrict any use of the information to criminally investigate or prosecute any alcohol or drug abuse patient.[facility] the event this information is protected by the Federal Confidentiality of Alcohol and Drug Abuse Patient Records regulations: The Federal rules restrict any use of the information to criminally investigate or prosecute any alcohol or drug abuse patient.[facility] Reason for Visit (unrecogniz ed section and content) Reason Comments Back Pain Leg Pain Hip Pain Reason Comments Abnormal Lab Reason Comments Diabetic Eye Exam Reason Comments Follow-up IBS/diarrhea..colono scopy results from July by you in [place] Reason Comments 6 Month Follow-up Coronary Artery Disease Reason Comments Chest Pain Specialty Diagnoses / Procedures Referred By Contac t Referred To Contact Diagnoses Chest pain Chest pain, unspecified type Procedures . Robbie Mckeon MD [address] [place] [address] [phone] Referral ID Status Reason Start Date Expiration Date Visits Re quested Visits Authorized [id number] 1 1 Reason Comments Hospital Follow-up Chest pain Reason Comments Blurred Vision Both Eyes Specialty Diagnoses / Procedures Referred By Contac t Referred To Contact Cardiology Diagnoses Coronary artery disease involving siletz tribe coronary artery of siletz tribe heart without angina pectoris Stable angina pectoris (HCC) Procedures Stress echocardiogram (TTE) dobutamine with contrast, bubble, strain, and 3D PRN order panel ID ECHO TTHRC R-T 2D W/WO M-MODE COMPLETE REST&ST ID ECHO TTHRC R-T 2D W/WO M-MODE REST&STRS CONT ECG ID DOPPLER ECHOCARD PULSE WAVE W/SPECTRAL DISPLAY ID DOP ECHOCARD COLOR FLOW VELOCITY MAPPING ID CV STRS TST XERS&/OR RX CONT ECG W/O I&R ID CV STRS TST XERS&/OR RX CONT ECG TRCG ONLY ID CV STRS TST XERS&/OR RX CONT ECG I&R ONLY Mingo Gavin, 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 - LOUNGE 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 [address] [place] [address] Referral ID Status Reason Start Date Expiration Date Visits Re quested Visits Authorized [id number] Closed 05/12/2023 05/11/2024 1 1 Specialty Diagnoses / Procedures Referred By Contac t Referred To Contact Oral Surgery Diagnoses Dental caries Henri Klever, DDS [address] [id number] [facility] ORAL SURGERY [address] [id number] Referral ID Status Reason Start Date Expiration Date Visits Requested Visits Authorized [id number] [facility]/13[facility]2022 12/14/2023 3 3 Specialty Diagnoses / Procedures Referred By Contac t Referred To Contact Diagnoses Closed head injury, initial encounter Fall, initial encounter Procedures . Lorenza Bowles MD [address] [place] [address] [facility] [address] [address] Referral ID Status Reason Start Date Expiration Date Visits Re quested Visits Authorized [id number] 1 1 Reason Comments Fall Head Laceration Specialty Diagnoses / Procedures Referred By Contac t Referred To Contact Diagnoses Closed head injury, initial encounter Fall, initial encounter Procedures . Lorenza Bowles MD [address] [place] [address] [facility] [address] [place] [phone] Reason Comments 6 Month Follow-up Specialty Diagnoses / Procedures Referred By Contac t Referred To Contact Diagnoses Atherosclerotic heart disease of siletz tribe coronary artery without angina pectoris Heart failure, unspecified (HCC) Procedures ID ECHO TTHRC R-T 2D W/WOM-MODE COMPL SPEC&COLR D ID TTE W OR WO FOL WCON,DOPPLER [facility] Non-Invasive Cardiology [address] [place] [id number] Referral ID Status Reason Start Date Expiration Date Visits Re quested Visits Authorized [id number] 1 1 Reason Comments New Patient Melena/bleeding when wiping/diarrhea/needs colonoscopy Reason Comments New Patient Urinary Incontinence Sometimes he can fe el when he has to go but He can't make it in time. I'm tired of wetting my pants. Urinary Frequency Unable to give a uri ne sample Reason Comments Vomiting Shortness of Breath Specialty Diagnoses / Procedures Referred By Chely rosales Referred To Contact Diagnoses Acute hypercapnic respiratory failure (HCC) Procedures J96.02 Haydee Willis DO [address] [place] [address] Phone: tel: fax: [facility] [address] [place] [address] Phone: tel: Referral ID Status Reason Start Date Expiration Date Visits Re quested Visits Authorized [id number] 1 1 Reason Comments Procedure Cysto Benign Prostatic Hypertrophy UTI Urinary Incontinence Reason Comments Vomiting Blood Specialty Diagnoses / Procedures Referred By Chely rosales Referred To Contact Diagnoses Hematemesis Procedures . Bethany Sandhu MD [address] [facility] [address] [place] [address] Phone: tel: fax: [facility] [address] [place] [address] Phone: tel: Referral ID Status Reason Start Date Expiration Date Visits Re quested Visits Authorized [id number] 1 1 Care Teams (unrecognized sec tion and content) Hobbing Machine Operator Relationship Specialty Start Date End Date Chelle Troncoso [address] [place], [place] [address] PCP - General Family Medicine 04/28/21 Hobbing Machine Operator Relationship Specialty Start Date End Date Chelle Troncoso [address] [place] [address] PCP - General Family Medicine 06/08/22 Hobbing Machine Operator Relationship Specialty Start Date End Date Chelle Troncoso [address] [place] [address] PCP - General Family Medicine 06/08/22 Team Status: Inactive Member Role Status Dates Chelle GARCIA Attending Provider Active Team Status: Active Member Role Status Dates Chelle GARCIA Attending Provider Active Hobbing Machine Operator Relationship Specialty Start Date End Date Chelle Troncoso [address] [place] [address] PCP - General Family Medicine 06/08/22 Hobbing Machine Operator Relationship Specialty Start Date End Date Chelle Troncoso [address] [place] [address] PCP - General Family Medicine 06/08/22 Hobbing Machine Operator Relationship Specialty Start Date End Date Chelle Troncoso [address] [place] [address] [address] [place] [address] PCP - General Family Medicine 06/08/22 Hobbing Machine Operator Relationship Specialty Start Date End Date Chelle Troncoso [address] [place] [address] PCP - General Family Medicine 06/08/22 Hobbing Machine Operator Relationship Specialty Start Date End Date Chelle Troncoso [address] [place] [address] PCP - General Family Medicine 06/08/22 Hobbing Machine Operator Relationship Specialty Start Date End Date Chelle Troncoso [address] [place] [address] PCP - General Family Medicine 06/08/22 Hobbing Machine Operator Relationship Specialty Start Date End Date Chelle Troncoso [address] [facility] [place] [address] PCP - General Family Medicine 04/28/21 Hobbing Machine Operator Relationship Specialty Start Date End Date Chelle Troncoso [address] [place] [address] [address] [place] [address] PCP - General Family Medicine 06/08/22 Hobbing Machine Operator Relationship Specialty Start Date End Date Chelle Troncoso [address] [place] [address] [address] [place] [address] PCP - General Family Medicine 06/08/22 Hobbing Machine Operator Relationship Specialty Start Date End Date Rony Arriaza DMD, MD [address] [place], [place] [id number] Physician Oral & Maxillofacial Surgery 09/16/23 Hobbing Machine Operator Relationship Specialty Start Date End Date Rony Arriaza DMD, MD [address] [place] [address] Physician Oral & Maxillofacial Surgery 09/16/23 Hobbing Machine Operator Relationship Specialty Start Date End Date [facility] Primary Care Provider 11/24/23 Hobbing Machine Operator Relationship Specialty Start Date End Date [facility] Primary Care Provider 11/24/23 Hobbing Machine Operator Relationship Specialty Start Date End Date Chelle Troncoso MD [address] [place] [address] [address] [place] [address] PCP - General Family Medicine 03/08/24 [facility] Nicky Rodriguez Primary Care Provider 11/24/23 Hobbing Machine Operator Relationship Specialty Start Date End Date Jose Martin Marion [address] [place] [address] PCP - General 12/12/18 Hobbing Machine Operator Relationship Specialty Start Date End Date Jose Martin Marion [address] [place] [address] PCP - General 12/12/18 Hobbing Machine Operator Relationship Specialty Start Date End Date Chelle Troncoso MD [address] [place] [address] [address] [place] [address] PCP - General Family Medicine 03/08/24 Pepe Marino MD [address] [place] [address] Surgeon Urology 05/02/24 [facility] Marixa Rodriguez Primary Care Provider 11/24/23 Hobbing Machine Operator Relationship Specialty Start Date End Date Chelle Troncoso MD [address] [place] [address] [address] [place] [address] PCP - General Family Medicine 03/08/24 Pepe Marino MD [address] [place] [address] Surgeon Urology 05/02/24 [facility] Care Provider 11/24/23 Hobbing Machine Operator Relationship Specialty Start Date End Date Chelle Troncoso MD [address] [place] [address] [address] [place] [address] PCP - General Family Medicine 03/08/24 Pepe Marino MD 201 [facility] [address] [place] [address] Surgeon Urology 05/02/24 [facility] Marixa Rodriguez Primary Care Provider 11/24/23 Hobbing Machine Operator Relationship Specialty Start Date End Date Chelle Troncoso MD [address] [place] [address] [address] [place] [address] PCP - General Family Medicine 03/08/24 Pepe Marino MD [address] [address] Surgeon Urology 05/02/24 [facility] Marixa Rodriguez Primary Care Provider 11/24/23 Hobbing Machine Operator Relationship Specialty Start Date End Date Chelle Troncoso MD [address] [place] [address] [address] [place] [address] PCP - General Family Medicine 03/08/24 Pepe Marino MD [address] [address] Surgeon Urology 05/02/24 [facility] Marixa Rodriguez Primary Care Provider 11/24/23 Hobbing Machine Operator Relationship Specialty Start Date End Date Chelle Troncoso MD [address] [place] [address] [address] [place] [address] PCP - General Family Medicine 03/08/24 Pepe Marino MD [address] [address] Surgeon Urology 05/02/24 [facility] Marixa Primary Care Provider 11/24/23 Team Status: Inactive [...] (unrecognized section and content) Medication Order 04/22/2023 04/23/2023 04/24/2023 aspirin chewable tablet 324 mg (COMPLETED) 324 [...] (Given - Provid er: Swati Isabel RN) cholestyramine (Questran) packet 4 g 4 g (1 packet), Oral, 3 times daily with meals, First dose on Mon04/24/23 at 0800 0800 (Not Given - Provider: Swati Finlin, RN - Reason: NPO)1200 (Given - Provider: [...] (Given - Provider: Joelle Rivas RN) pancrelipase (Sbz-Hgzw-Cymf) (Creon) 6000-84375 units per capsule 2 capsule 2 capsule, [...] sedation for opioid reversal - MUST notify identification officer provider immediately after first dose, may [...] 0829 (Given - Provider: Santa English, MARLEY) 0800 (Given - Provider: Romario Luna, MARLEY) atorvastatin (Lipitor) tablet 80 mg 80 mg, Oral, Daily, First dose on [place] 11/30/23 at 0800 0845 (Given - Provider: Starla Marte RN) 0829 (Given - Provider: Santa English, MARLEY) 0854 (Given - Provider: Romario Luna, MARLEY) carvedilol (Coreg) tablet 6.25 mg (CANCELED) 6.25 mg, Oral, 2 times daily with meals, First dose on Mon11/30/23 at 0800 0845 [...] Santa English RN)1321 (Stopped - Provider: Santa English RN) 1242 (New Bag - Provider: Romario Luna RN)1312 (Stopped - Provider: Romario Luna, RN) cholestyramine (Questran) packet 4 g 4 g (1 packet), Oral, 3 times daily with meals, First dose on Mon11/30/23 at 0800 0844 (Given - Provider: Starla Marte RN)1238 (Given - Provider: Starla Marte RN)1709 (Given - Provider: Starla Marte RN) 0828 (Given - Provider: Santa English RN)1200 (Not Given - Provider: Santa English RN - Reason: Patient/family refused)1644 (Given - Provider: Santa English, MARLEY) 0854 (Given - Provider: Romario Luna RN)1242 (Given - Provider: Romario Luna RN)1700 (Canceled Entry - Provider: Automatic Discharge Provider - Comment: Automatically canceled at discontinue of medication order) cilostazol (Pletal) tablet 50 mg 50 mg, Oral, 2 times daily, First dose on Mon11/30/23 at 0115 0845 (Given - Provider: Starla Marte RN)2017 (Given - Provider: Mamta Lai RN) 0828 (Given - Provider: Santa English RN)2130 (Given - Provider: Kel Balderas RN) 0856 (Given - Provider: Romario Luna RN) cyanocobalamin (Vitamin B-12) injection 1,000 mcg 1,000 mcg, IntraMUSCular, Every 30 days, First dose on Mon12/01/23 at 0900 dicyclomine (Bentyl) capsule 10 mg 10 mg, Oral, 3 times daily, First dose on Mon11/30/23 at 0900 0844 (Given - Provider: Starla Marte RN)1532 (Given - Provider: Starla Marte RN)2011 (Given - Provider: Mamta Lai RN) 0830 (Given - Provider: Santa English RN)1400 (Given - Provider: Santa English, RN)2100 (Given - Provider: Kel Balderas, MARLEY) 0854 (Given - Provider: Romario Luna, MARLEY)1400 (Not Given - Provider: Romario Luna RN - Reason: Patient/family refused) enoxaparin (Lovenox) syringe 40 mg 40 mg, SubCUTAneous, Every 24 hours scheduled (Daily), First dose on Mon11/30/23 at 0900, Indication of Use: Prophylaxis-DVT/PE, Indications: Prophylaxis of Venous Thromboembolism 0845 (Given - Provider: Starla Marte RN) 0828 (Given - Provider: Santa English, MARLEY) 0855 (Given - Provider: Romario Luna, MARLEY) ezetimibe (Zetia) tablet 10 mg 10 mg, Oral, Nightly, First dose on Mon11/30/23 at 0115 2027 (Given - Provider: Mamta Lai, MARLEY) 2130 (Given - Provider: Kel Balderas RN) famotidine (Pepcid) tablet 20 mg 20 mg, Oral, Daily, First dose on Mon11/30/23 at 0800 0844 (Given - Provider: Starla Marte RN) 0829 (Given - Provider: Santa English, MARLEY) 0854 (Given - Provider: Romario Luna, MARLEY) finasteride (Proscar) tablet 5 mg 5 mg, Oral, Daily, First dose on Mon11/30/23 at 0800, Women should not handle crushed or broken finasteride tablets when they are or may potentially be , due to potential risk to the fetus. Do not crush, chew, or split. 0845 (Given - Provider: Starla Marte RN) 0829 (Given - Provider: Santa English, RN) 0855 (Given - Provider: Romario Luna, [...] MARLEY) 2029 (Given - Provider: Kel Balderas, MARLEY) Insulin Lispro (Humalog) injection 16 Units 16 Units, SubCUTAneous, 3 times daily with meals, First dose on [place] 11/30/23 at 0800 0845 (Given - Provider: Starla Marte RN)1238 (Given - Provider: Starla Marte RN)1709 (Given - Provider: Starla Marte RN) 0906 (Given - Provider: Santa English, RN)1248 (Given - Provider: Santa English, RN)1644 (Given - Provider: Santa English, MARLEY) 0800 (Not Given - Provider: Romario Luna RN - Reason: Contraindicated - Comment: concern for hypoglycemia)1243 (Given - Provider: Romario Luna, MARLEY)1700 (Canceled Entry - Provider: Automatic Discharge Provider - Comment: Automatically canceled at discontinue of medication order) mometasone-formoterol (Dulera 200) 200-5 MCG/ACT inhaler 2 puff 2 puff, Inhalation, 2 times daily, First dose on [place] 11/30/23 at 0115, Rinse mouth with water after use to reduce aftertaste and incidence of candidiasis. Do not swallow. 0846 (Given - Provider: Starla Marte RN)2032 (Given - Provider: Mamta Lai RN) 0831 (Given - Provider: Santa English, MARLEY)2030 (Given - Provider: Kel Balderas, MARLEY) 0902 (Given - Provider: Romario Luna, RN) pancrelipase (Uab-Rooi-Gyig) (Creon) 6000-05052 units per capsule 2 capsule 2 capsule, [...] 0115 0844 (Given - Provider: Starla Marte RN)2012 (Given - Provider: Mamta Lai RN) 0828 (Given - Provider: Santa English RN)2150 (Given - Provider: Kel Balderas, MARLEY) 0854 (Given - Provider: Romario Luna, MARLEY) tamsulosin (Flomax) 24 hr capsule 0.4 mg 0.4 mg, Oral, 2 times daily, First dose on [place] 8/15/24 at 0600, Do not crush, chew, or split. 0518 (Given - Provider: Mamta Lai, MARLEY)1709 (Given - Provider: Starla Marte RN) 0829 (Given - Provider: Santa English, RN)1657 (Given - Provider: Santa English, MARLEY - Comment: patient prefer to take with dinner) 0854 (Given - Provider: Romario Luna, RN) tiotropium (Spiriva Respimat) 2.5 MCG/ACT inhaler [...] Lai RN)0842 (Rate/Dose Verify - Provider: Starla Marte RN) 0241 (New Bag - Provider: Mamta [...] Lai RN)1258 (See Alternative - Provider: Santa English, MARLEY) 0854 (See Alternative - Provider: Romario Luna, MARLEY) acetaminophen (Tylenol) tablet 650 mg(Linked Group 1) 650 mg, Oral, Every 6 hours PRN, mild pain (1-3), fever, For temp greater than 100.4 F (38 C), Starting on Mon11/30/23 at 0059, Maximum dose of acetaminophen is 4000 mg from all sources in 24 hours. 1709 (Given - Provider: Starla Marte, MARLEY) 0243 (Given - Provider: Mamta Lai RN)1258 (Given - Provider: Santa English, MARLEY) 0854 (Given - Provider: Romario Luna RN) [...] min PRN, high blood pressure, Starting on [place] 11/30/23 at 0059, Administer 10 mg IV every 10 minutes if SBP is 220 mmHg or greater OR DBP is 120 mmHg or greater. Notify provider if SBP is 220 mmHg or greater OR DBP is 120 mmHg or greater after 3 consecutive doses. methyl salicylate-menthol (Bengay) 10-15 % greaseless cream Apply externally, Every 12 hours PRN, lower back, Starting on [place] 11/30/23 at 0831 0846 (Given - Provider: Starla Marte, RN)2012 (Given - Provider: Mamta Lai, MARLEY) naloxone (Narcan) injection 0.4 mg 0.4 mg, IntraVENous, Every 5 min PRN, opioid reversal, respiratory depression, Starting on [place] 11/30/23 at 1329, +++ For RR <10, pinpoint pupils, over sedation for opioid reversal - MUST notify identification officer provider immediately after first dose, may [...] Mamta Lai RN)1241 (Given - Provider: Starla Marte, MARLEY)2011 (Given - Provider: Mamta Lai RN) 165 (Given - Provider: Santa English RN)223 (Given - Provider: Kel Balderas, MARLEY) 05 (Given - Provider: Kel Balderas RN) polyethylene glycol (PEG) 3350 (Miralax) packet 17 g 17 g, Oral, Daily PRN, constipation, Starting on [place] 11/30/23 at 0059, 1st line for treatment of constipation - give scheduled if no bowel movement in past 24 hours. 0843 (Given - Provider: Starla Marte RN) Linked Groups Order Group 1: [...] 0937 (Given - Provider: Tish Diaz, RN) carvedilol (Coreg) tablet 6.25 mg 6.25 mg, Oral, 2 times daily with meals, First dose on [place] 05/30/24 at 1700 0829 (Given - Provider: Ghassan Rodriguez RN)1704 (Given - Provider: Ghassan Rodriguez RN) 0908 (Given - Provider: Arcadio Naylor RN)1718 (Given - Provider: Arcadio Naylor RN) 0937 (Given - Provider: Tish Diaz, RN)1700 (Canceled Entry - Provider: Automatic Discharge Provider - Comment: Automatically canceled at discontinue of medication order) enoxaparin (Lovenox) syringe 30 mg 30 mg, SubCUTAneous, Every 12 hours scheduled (2 times per day), First dose on [place] 05/30/24 at 1145, Indication of Use: Prophylaxis-DVT/PE 0829 (Given - Provider: Ghassan Rodriguez RN)2206 (Given - Provider: Landy Brink RN) 0907 (Given - Provider: Arcadio Naylor RN)2120 (Given - Provider: Landy Brink, MARLEY) 0944 (Given - Provider: Tish Diaz, MARLEY) guaiFENesin (Mucinex) 12 hr tablet 600 mg 600 mg, Oral, 2 times daily, First dose on [place] 05/30/24 at 1145, Administer with plenty of fluids to ensure proper action. Do not crush, chew, or split. 0829 (Given - Provider: Ghassan Rodriguez RN)2207 (Given - Provider: Landy Brink RN) 09 (Given - Provider: Arcadio Naylor RN)2120 (Given - Provider: Landy Brink RN) 0900 (Not Given - Provider: Tish Diaz RN - Reason: Medication not available) insulin glargine (Lantus) injection 44 Units 44 Units, SubCUTAneous, Nightly, First dose on [place] 05/30/24 at 2100 2206 (Given - Provider: aLndy Brink, RN) 2121 (Given - Provider: Landy Brink RN) Insulin Lispro (Humalog) injection 0-12 Units 0-12 [...] 1700 0829 (Given - Provider: Ghassan Rodriguez RN)1227 (Given - Provider: Ghassan Rodriguez RN)1704 [...] daily, First dose (after last modification) on [place] 06/02/24 at 0800 0936 (Given - Provider: Nancy Rios RCP)1313 (Given - Provider: aNncy Rios RCP) ipratropium-albuterol (Duo-Neb) 0.5-2.5 mg/3 mL nebulizer solution 3 mL 3 mL, Nebulization, 3 times daily, First dose (after last modification) on [place] 06/02/24 at 2000 2050 (Given - Provider: Grecia Martel RCP) 0932 (Not Given - Provider: Carolin Mac RCP - Reason: Other - Comment: pt request to come back later. informed pt that RT will return around 1200. pt was ok with this)1652 (Given - Provider: Carolin Mac RCP)2231 (Given [...] Ghassan Rodriguez RN)2207 (Given - Provider: Landy Brink, MARLEY) 09 (Given - Provider: Arcadio Naylor RN)211 (Given - Provider: Landy Brink RN) pancrelipase (Qwe-Zrey-Agaz) (Creon) 67636-[address] units per capsule 1 capsule 1 capsule, Oral, 3 times daily with meals, First dose on [facility] 05/30/24 at 1200, Administer whole with [...] 0937 (Given - Provider: Tish Diaz RN) phosphorus (K Phos Neutral) tablet 1 tablet 1 tablet (250 mg), Oral, 2 times daily, First dose on 06/03/24 at 1415, For 4 doses, Each tablet contains 250 mg phosphorus, 298 mg sodium, 1.1 mEq potassium. 1543 (Given - Provider: Arcadio Naylor RN)2120 (Given - Provider: Landy Brink RN) 0937 (Given - Provider: Tish Diaz RN) polyethylene glycol (PEG) 3350 (Miralax) packet [...] 0937 (Given - Provider: Tish Diaz RN) pregabalin (Lyrica) capsule 150 mg 150 mg, Oral, 2 times daily, First dose on [place] 05/30/24 at 1145 0829 (Given - Provider: Ghassan Rodriguez RN)2207 (Given - Provider: Landy Brink RN) 0907 (Given - Provider: Arcadio Naylor RN)212 (Given - Provider: Landy Brink RN) 0937 (Given - Provider: Tish Diaz RN) tamsulosin (Flomax) 24 hr capsule 0.4 mg 0.4 mg, Oral, Daily, First dose on [place] 05/30/24 at 1145, Do not crush, chew, or split. 0829 (Given - Provider: Ghassan Rodriguez RN) 0907 (Given - Provider: Arcadio Naylor RN) 0937 (Given - Provider: Tish Diaz RN) PRN Medication Order 06/02/2024 06/03/2024 06/04/2024 acetaminophen (Tylenol) tablet 1,000 mg 1,000 mg, Oral, Every 8 hours PRN, mild pain (1-3), fever, Starting on [place] 05/30/24 at 1136, Maximum dose of acetaminophen is 4000 mg from all sources in 24 hours. 2207 (Given - Provider: Landy Brink, RN) 2119 (Given - Provider: Landy Brink, RN) dextrose 5 % infusion 100 mL/hr, [...] As needed, low blood sugar, Starting on [place] 05/30/24 at 1142, If blood glucose less [...] Starting on [place] 05/30/24 at 1134, +++notify identification officer provider if used+++ ondansetron (Zofran) injection [...] 2131 (Given - Provider: Fariba Wilder, MARLEY) 2035 (Given - Provider: Fariba Wilder, MARLEY) 2100 (Canceled Entry - Provider: Automatic Discharge [...] - Reason: NPO)1304 (Given - Provider: Isael Ash, RN)1756 (Given - Provider: Isael Ash, RN) 0846 (Given - Provider: Isael Ash, MARLEY)1155 (Given - Provider: Isael Ash, MARLEY)1729 (Given - Provider: Isael Ash, RN) Insulin Lispro (Humalog) injection 0-12 Units(Linked Group 1) 0-12 Units, SubCUTAneous, Nightly, First dose on Mon07/15/24 at 2100, If eating or bolus tube feeding: Medium Dose Correction Algorithm Glucose: Dose: LESS than 150 No Insulin 150-199 2 Units 200-249 4 Units 250-299 6 Units 300-349 8 Units 350-400 10 Units Above 400 12 Units 2133 (Given - Provider: Fariba Wilder, MARLEY) 2035 (Given - Provider: Fariba Wilder, MARLEY) 2100 (Canceled Entry - Provider: Automatic Discharge Provider - Comment: Automatically canceled at discontinue of medication order) mometasone-formoterol (Dulera 100) 100-5 MCG/ACT inhaler 2 puff 2 puff, Inhalation, 2 times daily, First dose on Mon07/15/24 at 2000, Rinse mouth with water after use to reduce aftertaste and incidence of candidiasis. Do not swallow. 2131 (Given - Provider: Fariba Wilder RN) 09 (Given - Provider: Isael Ash RN)1999 (Given - Provider: Fariba Wilder RN) 0845 (Given - Provider: Isael Ash RN)1999 (Canceled Entry - Provider: Automatic Discharge Provider - Comment: Automatically canceled at discontinue of medication order) pancrelipase (Xps-Nxug-Jvdf) (Creon) 6000-53314 units per capsule 2 capsule 2 capsule, [...] or split. 0528 (Given - Provider: Fariba Wilder RN) pregabalin (Lyrica) capsule 150 mg 150 mg, Oral, 2 times daily, First dose on Mon07/15/24 at 2100 2131 (Given - Provider: Fariba Wilder RN) 0903 (Given - Provider: Isael Ash RN)2035 (Given - Provider: Fariba Wilder RN) 0846 (Given - Provider: Isael Ash RN)2100 [...] 1510 1610 (New Bag - Provider: Baljeet Duke, MARLEY)2355 (New Bag - Provider: Fariba Wilder, RN) sodium chloride 0.9 % infusion (CANCELED) 100 mL/hr, IntraVENous, Continuous, Starting on Mon07/15/24 at 1510 1529 (New Bag - Provider: Baljeet Duke RN)2355 (New Bag - Provider: Fariba Wilder, MARLEY) 1121 (Continued by Anesthesia - Provider: Jimbo Avitia APRN - COMPOSER TEACHING ARTIST) PRN Medication Order 07/15/2024 07/16/2024 07/17/2024 acetaminophen [...] BE BASED ON THE PRIMARY CLINICAL RECORDS. [facility]. provides no warranty or guarantee of the accuracy or completeness of information in this document.
[2024-09-25 08:44] LABS: Ferritin 12 ng/mL (37-417); Iron 20 ug/dL (65-175); Iron Binding Capacity,Total 351 ug/dL (250-450); Iron Binding Capacity,Unsat 331 ug/dL (228-428)
== END | disposition home or self-care (01) ==
LOC: OLS.ACW200 05:00
PROVIDERS: Visit Provider Family Medicine
DX: S09.90XD Unspecified injury of head, subsequent encounter (principal); J96.02 Acute respiratory failure with hypercapnia; M51.362 Other intervertebral disc degeneration, lumbar region with discogenic back pain and lower extremity pain
CPT/HCPCS: 36415; 82728; 83540; 83550

== ENCOUNTER → 2024-09-30 | Outpatient (REF) | payer MEDICAID, SELFPAY | END | disposition home or self-care (01) | LOC: OLS.ACW100 00:05 | PROVIDERS: Referring Provider Family Medicine; Visit Provider Family Medicine | DX: K62.5 Hemorrhage of anus and rectum (principal) | CPT/HCPCS: 82274 ==

== ENCOUNTER → 2024-10-06 22:15 | Outpatient (REF) | payer MEDICAID, SELFPAY | LOC: OLS.ACW100 22:15 | PROVIDERS: Referring Provider Family Medicine; Visit Provider Family Medicine | DX: Z12.11 Encounter for screening for malignant neoplasm of colon (principal) | CPT/HCPCS: 82274 ==

== ENCOUNTER → 2024-10-24 06:30 | Outpatient (REF) | payer MEDICAID, SELFPAY ==
[2024-10-24 10:07] LABS: Color, Urine Straw (Yellow); Glucose, Dipstick 1000 mg/dl (Normal); Ketone-Dipstick Negative (Negative); Leukocyte Esterase-Dipstick 100 /ul (Negative); Nitrite-Dipstick Negative (Negative); Occult Blood-Urine 150 /ul (Negative); Protein-Dipstick 15 mg/dl (Negative); Specific Gravity, Urine 1.015 (1.002-1.030); Urine Bilirubin Dipstick Negative (Negative)
== END ==
LOC: OLS.ACW200 06:30
PROVIDERS: Visit Provider Family Medicine
DX: S09.90XD Unspecified injury of head, subsequent encounter (principal); J96.02 Acute respiratory failure with hypercapnia; M51.362 Other intervertebral disc degeneration, lumbar region with discogenic back pain and lower extremity pain
CPT/HCPCS: 81002; 87086; 87088

== ENCOUNTER → 2024-12-23 04:00 | Outpatient (REF) | payer MEDICAID, SELFPAY ==
--- OUTSIDE RECORDS SUMMARY | 2024-12-23 04:30 | XMS RPT_ITS | CCD ---
Author Organization [facility] Care Team Providers Care 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 Attendant Name Role Phone PROVIDER, UNKNOWN Unavailable Unavailable Spoljaric, Pepe Unavailable Unavailable Baranek, Stacey Unavailable Unavailable Baranek, Stacey Unavailable Unavailable PROVIDER, UNKNOWN Unavailable Unavailable Spoljaric, Pepe Unavailable Unavailable Baranek, Stacey Unavailable Unavailable PROVIDER, UNKNOWN Unavailable Unavailable Spoljaric, Pepe Unavailable Unavailable PROVIDER, UNKNOWN Unavailable Unavailable Spoljaric, Pepe Unavailable Unavailable Abhijit Soto Unavailable Unavailable Isaiah, Melquiades Unavailable Unavailable PROVIDER, [...] UnavailJose Martin Alcaraz MD Primary Care Provider [phone] Chelle Troncoso Primary Care Provider [phone] Chelle Troncoso Primary Care Provider [phone] Chelle Troncoso Primary Care Provider CHELLE TRONCOSO Primary Care Unavailab MARIXA Mittal Attending Unavaila ble SELF Referring Unavailable Unavailable Primary Care Provider Unavailshantel Arriaza DMD, MD, Rony Unavailable [phone] KLEVER ÁLVAREZ Referring Unavailable PROVIDER, UNKNOWN Admitting Unavailable CINTHYA, RONY Attending Unavailable PROVIDER, UNKNOWN Admitting Unavailable CINTHYA, RONY Attending Unavailable Unavailable Primary Care Provider UnavailChelle Kate MD Primary Care Provider [phone] Jose Martin Marion Primary Care Provider [phone] Pepe Marino MD Unavailable Chelle Mendez Attending Provider Unavailabl e Chelle Mendez Referring Provider Unavailshantel e CHELLE TRONCOSO Primary Care Unavailable HAYDEE WILLIS Admitting Unavailable MANJINDER SANCHEZ Attending Unavailable CHELLE TRONCOSO Primary Care Unavailable BETHANY SANDHU Admitting Unavailable DELISA COURTNEY Attending Unavailable JARET BLACKWOOD Consulting Unavailable MUDRAKOLA, ADAL Consulting Unavailable KODAKANDLA, NARSIMHA Admitting Unavailable MARIXA RODRIGUEZ Primary Care Unavailable ROMARIO MUNOZ Attending Unavailable PEPE MARINO Attending Unavailable CHELLE TRONCOSO Primary Care Unavailable GULSHAN ARREOLA Referring Unavaila MARIXA Mckeon Primary Care Unavailable PEPE MARINO Attending Unavailable CHELLE TRONCOSO Primary Care Unavailable CHE ALEGRIA Attending Unavailable CHE ALEGRIA Referring Unavailable CHELLE TRONCOSO Primary Care Unavailable CHE ALEGRIA Attending Unavailable CHELLE TRONCOSO Primary Care Unavailable PEPE MARINO Attending Unavailable PEPE MARINO Referring Unavailable CHELLE TRONCOSO Primary Care Unavailable Chelle Mendez Attending Provider UnavailLavinia GARCIA, Chelle Referring Provider UnavailLavinia GARCIA, Chelle Attending Unavailable Thea GARCIA, Chelle Attending Unavailable Thea GARCIA, Chelle Referring Unavailable Thea GARCIA, Chelle Attending Unavailable Thea GARCIA, Chelle Referring Unavailable Thea GARCIA, Chelle Attending Unavailable Thea GARCIA, Chelle Attending Unavailable Thea GARCIA, Chelle Attending Unavailable Chelle Mendez Attending Unavailable Chelle Mendez Referring Unavailable Chelle Mendez Attending Unavailable Thea GARCIA, Chelle Attending Unavailable Thea GARCIA, Chelle Attending Unavailable Thea GARCIA, Chelle Attending Unavailable Thea GARCIA, Chelle Attending Unavailable Laxmi MARTINEZ, Chema Rosales Unavailable [phone] Sultan MARTINEZ, Kacey Unavailable Chelle Troncoso MD Unavailable [phone] Allergies Allergy Classification Reported Allergen(s) Allergy Type Date of Onset Reaction(s) Facility Penicillins (antibiotic) (1 source) Penicillins; Translations: [PENICILLINS] [facility] Tetracyclines (antibiotic) (1 source) Tetracycline; Translations: [TETRACYCLINE] Drug Allergy 09-05-19 [facility] (4 sources) Oxytetracycline; Translations: [OXYTETRACYCLINE] Drug Allergy 12-27-19 17 Unknown [facility] (20 sources) Penicillins; Translations: [PENICILLINS] Drug Allergy 10-24-19 15 Unknown, Other (See Comments) NICOLE Work Phone: (3 sources) Oxytetracycline Drug Allergy 02-05-20 15 Other (See Comments) [facility] (3 sources) Tetracyclines & Related Propensity to adverse reactions to drug 09-07-19 19 [facility] (20 sources) Tetracycline (class of antibiotic) Drug Intolerance 02-05-20 15 [facility] (3 sources) Tetracycline Drug Allergy 09-05-19 24 [facility] (1 source) Penicillin G Drug Allergy 11-08-19 17 [facility] (1 source) Tetracycline Drug Allergy 05-29-19 19 [facility] (1 source) TERAMYACIN Drug allergy (disorder) 11-08-19 [facility] Medications Current Medications Medication Drug Class(es) Dates [...] fluorescein-benoxinate 0.25- 0.4 % 1 Drop (FLURESS) CLAUDIA-CITRATE PLUS VITAMIN D (CALCIUM CITRATE-VITAMIN D) 250-2.5 MG-MCG TABS (1 source) take 1 tablet by mouth once daily Claudia-Citrate 250 mg-2.5 mcg (100 unit) tablet Take 1 tablet by mouth once a day active Galina Keene LPN [facility]ower carboxymethylcellulose sodiu m 5 mg/ml ophthalmic solution (6 sources) Start: 05-06-19 carboxymethylcellulose (REFRESH PLUS) 0.5 % SOLN ophthalmic [...] 473 mL 3 09/14/2023 Active Continuous Glucose Community Service Technician ([employer] [place] [address] [place]) (3 sources) Start: Continuous Glucose Community Service Technician ([employer] [place] [address] [place]) 07/24/2023 Active dicyclomine hydrochloride 10 mg oral capsule (20 sources) Anticholinergic Start: End: take 1 capsule by mouth three times daily dicyclomine (Bentyl) 10 MG capsule Take 10 mg by mouth 3 times daily. 02/01/2023 Active Start: 12-20-2016 take 1 capsule by [facility] four times daily dicyclomine (BENTYL) 10 MG [...] Diskus 250-50 MCG/ACT aerosol powder 01/21/2023 Active take 1 puff(s) by inhalation onc e daily Advair Diskus 250 mcg-50 mcg/dose powder for inhalation Inhale 1 puff as directed once a day active Galina Keene [facility] folic acid 1 mg oral tablet (3 sources) take 1 tablet by mouth once daily folic acid (FOLVITE) 1 MG tablet Take 1 mg by mouth daily 0 Active gabapentin 800 mg oral tablet (6 sources) Anti-epileptic Agent Start: 8 take 1 tablet by mouth three times [...] 07/21/2017 Active ibuprofen 600 mg oral tablet (18 sources) Nonsteroidal Anti-inflammatory Drug Start: 4 End: 5 take 1 tablet by mouth every six hours as needed for pain ibuprofen (MOTRIN) 600 MG tablet Take 1 Tablet by mouth every 6 hours as needed for Pain. 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 Active Magnesium Hydroxide (3 sources) Magnesium Hydroxide (MILK OF MAGNESIA PO) Take 12.5 mg [...] as needed (lower back). Active metFORMIN hydrochloride 1000 mg oral tablet (13 sources) Biguanide take 1 tablet by mouth twice daily metformin 1,000 mg tablet Take 1 tablet by mouth twice a day active Galina Keene [facility] take 1 tablet by michael th twice daily at mealtime metFORMIN (Glucophage) 500 MG tablet Shabbir e 500 mg by mouth 2 times daily (with meals). Active metoprolol tartrate 25 mg oral tablet (3 sources) beta-Adrenergic Sonny Start: 08-16-2017 take 0.5 tablet by mouth twice daily metoprolol tartrate (LOPRESSOR) 25 MG tablet Take 0.5 tablets by mouth 2 times daily 60 tablet 3 08/16/2017 Active nabumetone 1000 mg oral tablet (20 sources) Nonsteroidal Anti-inflammatory Drug take 1 tablet by mouth twice daily Relafen DS 1,000 mg tablet Take 1 tablet by mouth twice a day active Galina Keene [facility] nabumetone (Rela fen) 500 MG tablet Take 750 mg by [...] skin every 24 hours 0 Active nystatin 442634 unt/ml topical cream (20 sources) Polyene Antifungal Start: 11-09-19 nystatin (Mycostatin) cream 11/08/2022 Active pantoprazole 40 mg delayed release oral tablet (12 sources) Proton Pump Inhibitor Start: 07-18-19 End: 07-19-19 take 1 tablet by mouth once daily [...] 07/14/2017 Active take 1 tablet by michael once daily pantoprazole (Protonix) 40 MG tablet 1 tab(s) orally once a day Active phenylephrine hydrochloride 25 mg/ml ophthalmic solution (2 sources) alpha-1 Adrenergic Agonist Start: 06-06-2023 End: 06-06-2023 PHENYLephrine 2.5 % 1 Drop (AK-DILATE, LESTER-SYNEPHRINE) Start: 05-06-2022 End: 05-06-2022 PHENYLephrine 2.5 % 1 Drop ( AK-DILATE, LESTER-SYNEPHRINE) polymyxin b 34837 unt/ml / trimethoprim 1 mg/ml ophthalmic solution (3 sources) Dihydrofolate Reductase Inhibitor Antibacterial, Polymyxin-class Antibacterial Start: 08-03-2023 trimethoprim-polymyxin b (POLYTRIM) 88345-1.1 UNIT/ML-% ophthalmic solution 08/03/2023 Active microencapsulated potassium [...] inhalation Inhale 1 puff daily. 04/29/2024 Active VITAMIN D (ERGOCALCIFEROL) (ERGOCALCIFEROL) 1.25 MG (19571 UT) CAPS (1 source) take 1 capsule by mouth every week Vitamin D2 1,250 mcg (50,000 unit) capsule Take 1 capsule by mouth once a week Fridays active Galina Keene LPN [facility] Mary Completed/Discontinued Medications Medication Drug Class(es) Dates Sig [...] Active take 2 tablets by mo uth four times daily as needed for pain Tylenol 325 mg tablet Take 2 tablet by mouth four times a day as needed for pain active Galina Keene LPN [facility] take 2 tablets by mo uth every [...] time s daily PRN, wheezing, Starting on [facility] 11/30/23 at 1545 Start: 07-28-2021 albuterol [...] daily, First dose (after last modification) on [place] 06/02/24 at 0800 Start: 05-30-2024 End: 06-02-2024 3 mL, Nebulization, Every 4 hours, First dose on [facility] 05/30/24 at 1145 Start: 05-30-2024 End: 05-30-2024 3 mL, Nebulization, Once, On [facility] 05/30/24 at 0855, For 1 dose Start: 07-28-2021 take 3 mL by inhalat ion every four hours ipratropium-albuterol (DUONEB) 0.5 mg-3 mg(2.5 mg base)/3 mL nebu Inhale 3 mL as instructed every 4 hours while awake. 0 07/28/2021 Active Comment on above: Inhale 3 mL as instr ucted every 4 hours while awake. amylase 91934 unt / lipase 6000 unt / protease 94182 unt delayed release oral capsule (20 sources) [...] times daily with meals, First dose on [facility] 05/30/24 at 1200, Administer whole with [...] of water. Start: 04-24-2023 End: 04-24-2023 pancrelipase (Www-Edmb-Need) (Creon) 6000-89790 units per capsule 2 capsule take 1 capsule by mo uth three times daily Creon 12,000-38,000-60,000 unit capsule,delayed release Take 1 capsule by mouth three times a day active Galina Keene KICK PRESS OPERATOR [facility] take 97089-92166 [IU ] by mouth three times daily at mealtime pancrelipase, Ixj-Pbli-Cvvw, (Creon) 39753-01897 units capsule Take by mouth 3 times daily (with meals). Active esosgau-smuamf-v rotease (CREON) 26914 units capsule Take by mouth. Active aspirin [...] 04-23-2023 aspirin chewable tablet 324 mg Start: 08-16-2017 take 1 tablet by mouth once da milo aspirin 81 MG EC tablet Take 1 tablet by mouth daily 30 tablet 3 08/16/2017 Active Start: 11-07-2016 End: 12-05-2023 aspirin 81 MG chewable table t Chew 81 mg daily. 08/26/2021 Active atorvastatin 80 mg oral tablet (20 [...] once daily. bisacodyl 10 mg rectal suppository (9 sources) Stimulant Laxative Start: 11-30-2023 End: 12-05-2023 take 10 mg rectal route every twenty-four hours as needed for constipation Start: 04-20-2018 take 1 tablet by michael th once daily as needed bisacodyl 5 mg tablet,delayed release Take 1 tablet by mouth once a day as needed as directed active Galina Keene LPN [facility] calcium chloride 1 g in sodium chloride [...] (premix) docusate sodium 50 mg / sennosides, assisted 8.6 mg oral tablet (4 sources) Start: 05-30-2024 End: 06-04-2024 1 tablet, Oral, Daily PRN, constipation, Starting on [place] 05/30/24 at 1136, Cannot be crushed in PEG, Indications: Constipation Start: 07-28-2021 take 2 tablets by mo [facility] every twelve hours as needed senna-docusate (SENNA-S) 8.6-50 mg per tablet Take 2 tablets by mouth twice daily as needed. 0 07/28/2021 Active Comment on above: Take 2 tablets by mo uth twice daily as needed. dulaglutide (Trulicity) 4.5 MG/0.5ML solution pen-injector (17 sources) End: 4 inject 4.5 mg by subcutaneous injection once [...] 24 hours scheduled (Daily), First dose on [place] 11/30/23 at 0900, Indication of Use: Prophylaxis-DVT/PE, Indications: Prophylaxis of Venous Thromboembolism ergocalciferol 1.25 mg oral capsule (20 sources) Provitamin D2 Compound Start: 07-16-2024 End: 07-17-2024 take 1250 ug by mouth every week 1,250 mcg, Oral, Weekly, First dose on Mon07/16/24 at 0900 take 1 capsule by mouth once erg ocalciferol (Vitamin D-2) 1.25 MG (91076 UT) capsule Take 1.25 mg by mouth [...] on above: Take 1 capsule by mo [facility] daily with breakfast. finasteride 5 mg oral tablet (20 sources) 5-alpha Reductase Inhibitor Start: 5 End: take 1 tablet by mouth once [...] use, clean tip and replace cap. take 2 spray(s) nasal route once daily fluticasone propionate 50 mcg/actuation nasal spray,suspension [employer] 2 spray into both nostrils once a day active Galina Keene LPN [facility] take 1 spray(s) by i nhalation once daily fluticasone (FLONASE) 50 mcg/act nasal inhaler 1 [employer] daily. Active 60 actuat formoterol fumarate 0.005 [...] End: 05-30-2024 40 mg, IntraVENous, Once, On [facility] 05/30/24 at 1015, For 1 dose [...] does not have IV access., Starting on 04/24/23 at 0127, After administration, attempt intravenous access [...] Nightly, First dose on Mon05/30/24 at 2100 Start: 11-30-2023 End: 12-05-2023 inject 48 [IU] by subcutaneous injection once daily 48 Units, SubCUTAneous, Daily, First dose on Mon11/30/23 at 0800 Start: 08-29-2023 Lantus SoloSta r 100 UNIT/ML pen 08/29/2023 Active Start: 04-24-2023 End: 04-24-2023 inject 44 [IU] by subcutaneous injection once daily 44 Units, SubCUTAneous, Daily, First dose on Mon04/24/23 at 0800 Start: 08-26-2021 inject 48 [IU] [...] skin nightly 12 pen 3 09/25/2018 Active Start: 11-07-2016 inject 40 [IU] by [place] bcutaneous injection once daily Lantus U-100 Insulin 100 unit/mL subcutaneous solution Inject 40 unit subcutaneously every night active Galina Keene LPN [facility] Comment on above: Inject 60 Units subc [...] SubCUTAneous, Every 6 hours, First dose on Mon05/30/24 at 1145, 430 = 12 units labetalol [...] End: 05-30-2024 40 mg, IntraVENous, Once, On [place] 05/30/24 at 0855, For 1 dose mupirocin 0.02 [...] 10 mL IV syringe polyethylene glycol 3350 37276 mg powder for oral solution (8 sources) [...] First dose on [place] 11/30/23 at 0115 Start: 04-24-2023 End: 12-05-2023 take [...] hour 50 mL/hr, IntraVENous, Continuous, Starting on [place] 11/30/23 at 0115 Start: 04-24-2023 End: 04-24-2023 take [...] Active Start: 05-21-2020 take 1 capsule by [facility] every twenty-four hours in the morning tamsulosin (Flomax) 0.4 MG 24 hr capsule Take 0.4 mg by mouth in the morning and 0.4 mg in the evening. 0 05/21/2020 Active Start: 12-12-2018 take 1 capsule by mo [facility] twice daily tamsulosin (FLOMAX) 0.4 MG capsule [...] of each capsule should be inhaled twice. take 2 puff(s) by in halation twice daily Spiriva with HandiHaler 18 mcg and inhalation capsules Inhale 2 puff as directed twice a day active Galina Keene LPN [facility] End: 06-04-2024 take 1 capsule by inhalation [...] nuclear cataract, bilateral] Onset: 0 Chronic Chronic kidney disease (1 source) Chronic kidney disease; Translations: [Chronic kidney disease, unspecified] Onset: 4 06-16-2023 Chronic Chronic obstructive pulmonary disease and bronchiectasis [...] disease (20 sources) Atherosclerotic heart disease of [place] coronary artery with unstable angina pectoris; Translations: [Atherosclerotic heart disease of [place] coronary artery without angina pectoris] Onset: 8 08-08-2017 Chronic Coronary atherosclerosis and other heart disease (2 sources) Presence of aortocoronary bypass graft; Translations: [Presence of aortocoronary bypass graft] Onset: 8 Episodic Delirium, dementia, and amnestic and other cognitive disorders (4 sources) Dementia; Translations: [Unspecified dementia, moderate, with [...] disease with esophagitis] Onset: 6 04-26-2017 Chronic Genitourinary symptoms and ill-defined conditions (6 sources) Unspecified urinary incontinence; Translations: [Urge incontinence of urine] Onset: 8 05-13-2024 Chronic Hyperplasia of prostate (20 sources) Benign prostatic [...] Onset: 5 Resolved: 7 12-26-2016 Chronic Other acquired deformities (1 source) Acquired deformity of spine; Translations: [Other acquired deformity of back or spine] Onset: 7 11-09-2016 Chronic Other acquired deformities (1 source) Lumbar spondylolisthesis; Translations: [Spondylolisthesis, lumbar region] Onset: 5 10-25-2024 Episodic Other circulatory disease (1 source) Hemorrhage, not elsewhere classified; Translations: [Hemorrhage, not elsewhere classified] Onset: 5 Episodic Other eye disorders (1 source) Bilateral epiphora [...] sources) Hypoxia; Translations: [Hypoxemia] 05-30-2024 Episodic Other nervous system disorders (2 sources) Polyneuropathy, unspecified; Translations: [Polyneuropathy, unspecified] Onset: 8 Chronic Other nervous system disorders (2 sources) Chronic pain syndrome; Translations: [Chronic pain syndrome] Onset: 8 Chronic Other nervous system disorders (2 sources) Cognitive communication deficit; Translations: [Cognitive communication deficit] Onset: 5 Chronic Other nutritional; endocrine; and metabolic disorders [...] unspecified] Onset: 5 Resolved: 7 01-09-2017 Chronic Peripheral and visceral atherosclerosis (4 sources) Peripheral vascular disease; Translations: [Peripheral vascular disease, unspecified] Onset: 7 09-05-2023 Chronic Residual codes; unclassified (20 sources) Obstructive sleep apnea syndrome; Translations: [Obstructive sleep apnea (adult) (pediatric)] Onset: 5 Resolved: 7 08-08-2017 Chronic Residual codes; unclassified (2 sources) Sleep apnea, unspecified; Translations: [Sleep apnea, unspecified] Onset: 8 Respiratory failure; insufficiency; arrest (adult) (3 sources) Chronic hypoxemic respiratory failure; Translations: [Chronic respiratory failure with hypoxia] Onset: 2 09-05-2023 Chronic Respiratory failure; insufficiency; arrest (adult) (19 sources) Respiratory failure; Translations: [Respiratory failure, unspecified, [...] disc disorders; other back problems (4 sources) Spondylosis without myelopathy; Translations: [Spondylosis without myelopathy or radiculopathy, site unspecified] Onset: 7 09-05-2023 Chronic Spondylosis; intervertebral disc disorders; other back problems (6 sources) Chronic low back pain; Translations: [Low back pain] Onset: 7 Episodic Substance-related disorders (6 sources) Nicotine dependence, cigarettes, uncomplicated; Translations: [Nicotine dependence] Onset: 8 11-07-2024 Chronic Unclassified (2 sources) Obstructive sleep apnea (adult) (pediatric); Translations: [Obstructive sleep apnea (adult) (pediatric)] Onset: 8 Chronic Unclassified (3 sources) Patient encounter status 10-20-2017 Unclassified (2 sources) Other intervertebral disc degeneration, lumbar region with discogenic back pain and lower extremity pain; Translations: [Other intervertebral disc degeneration, lumbar region with discogenic back pain and lower extremity pain] Onset: Urinary tract infections (9 sources) Urinary tract infectious disease; Translations: [Recurrent urinary tract infection] Onset: 7 Resolved: 7 01-28-2017 Episodic Past or Other Problems Problem Classification Problem Date Documented Da te Episodic/Chronic Abdominal hernia (20 sources) Diaphragmatic hernia without obstruction or gangrene; Translations: [Hiatal hernia] Onset: 02-21-2017 02-21-2017 Episodic Acquired foot deformities (1 source) Angulation deformity of lower limb; Translations: [Equinus deformity of foot, acquired] Onset: 11-16-2016 11-16-2016 Episodic Acute and unspecified renal failure (6 [...] [Hyperkalemia] Onset: 09-11-2015 Resolved: 09-13-2015 10-05-2015 Episodic Fracture of lower limb (1 source) Metatarsal bone fracture; Translations: [Displaced fracture of second metatarsal bone, right foot, initial encounter for closed fracture] Onset: 11-16-2016 11-16-2016 Episodic Gastrointestinal hemorrhage (10 sources) Hematemesis; Translations: [Hematemesis] Onset: 07-15-2024 07-15-2024 Episodic Genitourinary symptoms and ill-defined conditions (20 sources) Retention of urine, unspecified; Translations: [Urinary tract obstruction] Onset: 09-16-2015 Resolved: 01-09-2017 01-09-2017 Episodic Infective arthritis and osteomyelitis (except that caused by tuberculosis or sexually transmitted disease) (3 sources) Acute osteomyelitis of left foot Onset: 12-02-2014 Resolved: 01-09-2017 01-09-2017 Chronic Malaise and fatigue (1 source) Weakness; Translations: [Weakness] Onset: 12-13-2023 Episodic Noninfectious gastroenteritis (20 sources) Colitis; Translations: [Noninfective gastroenteritis and colitis, unspecified] Onset: 05-21-2017 05-21-2017 Episodic Nonspecific chest pain (20 sources) Chest pain, unspecified; Translations: [Other chest pain] Onset: 08-12-2016 Resolved: 01-09-2017 08-06-2017 Episodic Other aftercare (4 sources) manager long term care (current) use of insulin; Translations: [manager long term care (current) use of insulin] Onset: 11-03-2017 Episodic Other aftercare (2 sources) manager long term care (current) use of aspirin; Translations: [intermediate (current) use of aspirin] Onset: 12-17-2017 Episodic Other aftercare (2 sources) manager long term care (current) use of non-steroidal anti-inflammatories (NSAID); Translations: [intermediate (current) use of non-steroidal non-inflam (NSAID)] Onset: 12-17-2017 Episodic Other aftercare (20 sources) Long-term current use of antibiotic; Translations: [manager long term care (current) use of antibiotics] Onset: 10-20-2017 01-27-2022 [...] 01-09-2017 01-09-2017 Episodic Other connective tissue disease (1 source) Muscle weakness (generalized); Translations: [Muscle weakness (generalized)] Onset: 12-13-2023 Episodic Other connective tissue disease (1 source) Achilles tendinitis; Translations: [Achilles tendinitis, right leg] Onset: 11-16-2016 11-16-2016 Episodic Other connective tissue disease (1 source) Plantar fasciitis; Translations: [Plantar fascial fibromatosis] Onset: 11-16-2016 11-16-2016 Episodic Other gastrointestinal disorders (2 sources) Constipation, unspecified; Translations: [Constipation, unspecified] Onset: 08-07-2017 Episodic Other infections; including parasitic (3 sources) Personal history of other infectious and parasitic diseases; Translations: [Personal history of COVID-19] Onset: 12-06-2021 09-05-2023 Episodic Other infections; including parasitic (1 source) Local infection of wound; Translations: [Unspecified infectious disease] Onset: 12-22-2017 12-22-2017 Episodic Other injuries and conditions due to [...] Onset: 10-23-2014 Resolved: 01-09-2017 01-09-2017 Chronic Other lower respiratory disease (2 sources) Other abnormalities of breathing; Translations: [Other abnormalities of breathing] Onset: 05-30-2024 Episodic Other lower respiratory disease (2 sources) Hypoxemia; Translations: [Hypoxemia] Onset: 05-30-2024 Episodic Other nervous system disorders (3 sources) Neuropathy Onset: 10-23-2014 Resolved: 01-09-2017 01-09-2017 Chronic Other nervous system disorders (2 sources) Acute post-thoracotomy pain; Translations: [Acute post-thoracotomy pain] Onset: 10-16-2017 Episodic Other nervous system disorders (2 sources) Unsteadiness on feet; Translations: [Unsteadiness on feet] Onset: 05-24-2024 Episodic Other nervous system disorders (1 source) Unspecified lack of coordination; Translations: [Unspecified lack of coordination] Onset: 12-13-2023 Episodic Other non-traumatic joint disorders (3 sources) [...] 10-23-2014 01-27-2022 Episodic Other non-traumatic joint disorders (3 sources) Pain in left knee; Translations: [Pain in joint, lower leg] Onset: 01-27-2022 Episodic Other screening for suspected conditions (not mental disorders or infectious disease) (6 sources) Patient encounter status; Translations: [Encounter for screening for malignant neoplasm of colon] Onset: 05-13-2024 Episodic Other upper respiratory disease (3 sources) [...] Test Name Value Interpretation Reference Range Facility Relevant diagnostic tests/la boratory data Narrativeon 11-05-2024 Fall risk assessment no [facility] [employer] Work Phone: MEDS REVIEW Documentation of current medications (procedure) [employer] Work Phone: MEDS REVIEWD Medications reviewed without changes [employer] Work Phone: XRAY HX of the right hip on 10/16/2023 at [facility] [employer] Work Phone: Bilirubin Test strip Ql (U)O rdered By: Chelle Troncoso on 10-24-2024 Bilirubin Ql (U) Negative Negative [facility] Ketones Test strip Ql (U)Ord ered By: Chelle Troncoso on 10-24-2024 Ketones Ql (U) Negative Negative [facility] Nitrite Test strip Ql (U)Ord ered By: Chelle Troncoso on 10-24-2024 Nitrite Ql (U) Negative Negative [facility] Protein Test strip Ql (U)Ord ered By: Chelle Troncoso on 10-24-2024 Protein Ql (U) 15 mg/dl High Negative [facility] Urine clarityOrdered By: Costa Troncoso on 10-24-2024 Clarity (U) Cloudy Clear [facility] Urine color determinationOrd ered By: Chelle Troncoso on 10-24-2024 Color (U) Straw Yellow [facility] Urine cultureOrdered By: Costa Troncoso on 10-24-2024 Bacteria identified Cx Nom (U) Mixed Gram Pos & Gram Neg Org Abnormal [facility] Urine glucose detectionOrder ed By: Chelle Troncoso on 10-24-2024 Glucose Ql (U) 1000 mg/dl High Normal [facility] Urine leukocyte esterase det ection by dipstickOrdered By: Chelle Troncoso on 10-24-2024 Leukocyte esterase Test strip Ql (U) 100 /ul High Negative [facility] Urine pHOrdered By: Chelle bucio on 10-24-2024 pH (U) 5.0 [pH] 5.0 - 8.0 [facility] Urine specific gravity measu rementOrdered By: Chelle Troncoso on 10-24-2024 Specific gravity (U) [Rel density] 1.015 1.002-1.030 [facility] Urine urobilinogen measureme ntOrdered By: Chelle Troncoso on 10-24-2024 Urobilinogen Ql (U) Normal mg/dl Normal [facility] 36on 10-15-2024 36 Normal [facility] 36 Normal [facility] 36 Lisa from [employer] [phone] called to report a 5.5lb weight gain for the patient Normal [facility] Stool gastrointestinal hemog lobin detection by immunologic methodOrdered By: Chelle Troncoso on 10-06-2024 Lower GI hemoglobin IA Ql (Stl) [facility] Stool gastrointestinal hemog lobin detection by immunologic methodOrdered By: Chelle Troncoso on 09-30-2024 Lower GI hemoglobin IA Ql (Stl) [facility] Iron measurement (mass/mass) Ordered By: Chelle Troncoso on 09-25-2024 Iron (Unsp spec) [Mass/Mass] 20 ug/dL Low 65-175 [facility] No Panel InformationOrdered By: Chelle Troncoso on 09-25-2024 Unsaturated Iron Binding Capacity 331 ug/dL 228-428 [facility] Serum or plasma ferritin lauryn surement (mass/volume)Ordered By: Chelle Troncoso on 09-25-2024 Ferritin [Mass/Vol] 12 ng/mL Low 37-417 [facility] Serum or plasma iron saturat ion measurement (mass fraction)Ordered By: Chelle Troncoso on 09-25-2024 Iron saturation [Mass fraction] 6.0 % Low 9-55 [facility] Anion gap in Serum or Plasma Ordered By: Chelle Troncoso on 09-23-2024 Anion gap [Moles/Vol] 10 mmol/L 5-15 [facility] BUN/creatinine ratioOrdered By: Chelle Troncoso on 09-23-2024 Urea nitrogen/Creatinine [Mass ratio] 17.0 mg/mg 10-20 [facility] Bilirubin directOrdered By: Chelle Troncoso on 09-23-2024 Bilirubin.direct [Mass/Vol] 0.09 mg/dL 0.00-0.30 [facility] Bilirubin, totalOrdered By: Chelle Troncoso on 06-09-2025 Bilirubin [Mass/Vol] 0.16 mg/dL 0.00-1.30 [facility] Calculated very low density lipoprotein (VLDL) cholesterol measurementOrdered By: Chelle Troncoso on 09-23-2024 Calculated very low density lipoprotein (VLDL) cholesterol measurement 13 mg/dL 5-40 [facility] Carbon dioxide, total [Moles /volume] in Central venous bloodOrdered By: Chelle Troncoso on 09-23-2024 CO2 [Moles/Vol] 25.3 mmol/L 21.0-32.0 [facility] Chloride assayOrdered By: Magdalena Troncoso on 09-23-2024 Chloride [Moles/Vol] 107 mmol/L 98-108 [facility] Erythrocyte distribution wid th ratioOrdered By: Chelle Troncoso on 09-23-2024 Erythrocyte distribution width (RBC) [Ratio] 17.4 % High 11.6-14.6 [facility] Erythrocyte distribution wid th standard deviationOrdered By: Chelle Troncoso on 09-23-2024 Erythrocyte distribution width (RBC) [Ratio] 50.9 fl High 35.1-43.9 [facility] Glomerular filtration rate ( GFR) estimation/1.73 sq m using serum, plasma, or whole bOrdered By: Chelle Troncoso on 09-23-2024 GFR/1.73 sq M.predicted among non-blacks MDRD (S/P/Bld) [Vol rate/Area] 87 mL/min/{1.73_m2} >60 [facility] Comment on above: mL/min/1.73m2 CKD-EP I Creatinine Equation (2020) Hematocrit Auto (Bld) [Volum e fraction]Ordered By: Chelle Troncoso on 09-23-2024 Hematocrit (Bld) [Volume fraction] 30.3 % Low 40-54 [facility] Hemoglobin A1c percentageOrd ered By: Chelle Troncoso on 09-23-2024 HbA1c (Bld) [Mass fraction] 9.7 % High <5.7 [facility] Comment on above: Normal < 5.7 % Predi abetic 5.7 - 6.4 % Diabetic >or= 6.5 % Please note range changes. Hemoglobin measurementOrdere d By: Chelle Troncoso on 09-23-2024 Hemoglobin (Bld) [Mass/Vol] 8.7 g/dL Low 13.0-16.5 [facility] LDL calc ser/plasOrdered By: Chelle Troncoso on 09-23-2024 Cholesterol in LDL [Mass/Vol] 43 mg/dL [facility] Comment on above: Dvvjcmmxyy=147-047 m g/dL & Higher Zxcc=247 mg/dL or greater Laboratory - Chemistry and C hemistry - challengeOrdered By: Chelle Troncoso on 09-23-2024 AST [Catalytic activity/Vol] 7 U/L <38 [facility] MCV (mean corpuscular volume ) determinationOrdered By: Chelle Troncoso on 09-23-2024 MCV (RBC) [Entitic vol] 81.2 fL 80-94 [facility] Mean corpuscular hemoglobin (MCH) determinationOrdered By: Chelle Troncoso on 09-23-2024 MCH (RBC) [Entitic mass] 23.3 pg Low 27.0-32.0 [facility] Mean corpuscular hemoglobin concentration (MCHC) determinationOrdered By: Chelle Troncoso on 09-23-2024 MCHC (RBC) [Mass/Vol] 28.7 g/dL Low 32-36 [facility] Mean platelet volume determi nationOrdered By: Chelle Troncoso on 09-23-2024 Platelet mean volume (Bld) [Entitic vol] 9.7 fL 6.2-12.0 [facility] Platelet countOrdered By: Magdalena Troncoso on 09-23-2024 Platelets (Bld) [#/Vol] 263 10*3/uL 150-450 [facility] Potassium measurement (mass/ volume)Ordered By: Chelle Troncoso on 09-23-2024 Potassium (Unsp spec) [Mass/Vol] 4.1 mmol/L 3.3-5.1 [facility] RBC Auto (Bld) [#/Vol]Ordere d By: Chelle Troncoso on 09-23-2024 RBC (Bld) [#/Vol] 3.73 10*6/uL Low 4.6-6.2 [facility] Screening total cholesterol/ high density lipoprotein (HDL) cholesterol ratioOrdered By: Chelle Troncoso on 09-23-2024 Cholesterol.total/Choles terol in HDL [Mass ratio] 2.21 {ratio} [facility] Serum creatinine measurement (mass/volume)Ordered By: Chelle Troncoso on 09-23-2024 Creatinine [Mass/Vol] 0.96 mg/dL 0.70-1.20 [facility] Serum globulin measurementOr dered By: Chelle Troncoso on 09-23-2024 Globulin (S) [Mass/Vol] 2.7 g/dL 2.2-4.2 [facility] Serum glucose measurement (m ass/volume)Ordered By: Chelle Troncoso on 09-23-2024 Glucose [Mass/Vol] 192 mg/dL High 70-99 [facility] Serum or plasma alanine weller otransferase (ALT) measurementOrdered By: Chelle Troncoso on 09-23-2024 ALT [Catalytic activity/Vol] U/L <47 [facility] Serum or plasma albumin william urement (mass/volume)Ordered By: Chelle Troncoso on 09-23-2024 Albumin [Mass/Vol] 3.5 g/dL 3.4-4.8 [facility] Serum or plasma alkaline maritza sphatase measurementOrdered By: Chelle Troncoso on 09-23-2024 ALP [Catalytic activity/Vol] 107 U/L 40-129 [facility] Serum or plasma calcium william urement (mass/volume)Ordered By: Chelle Troncoso on 09-23-2024 Calcium [Mass/Vol] 8.8 mg/dL 7.6-11.0 [facility] Serum or plasma cholesterol in HDL measurement (mass/volume)Ordered By: Chelle Troncoso on 09-23-2024 Cholesterol in HDL [Mass/Vol] 46 mg/dL >40 [facility] Comment on above: National Cholesterol Education Program (NCEP) guidelines:<40 mg/dL: Low HDL-cholesterol (major risk factor for CHD)>= 60 mg/dL: High HDL-cholesterol (negative risk factor for CHD)HDL-cholesterol is affected by a number of factors, e.g. smoking, exercise, hormones, sex and age. Serum or plasma cholesterol measurement (mass/volume)Ordered By: Chelle Troncoso on 09-23-2024 Cholesterol [Mass/Vol] 102 mg/dL <201 [facility] Comment on above: Cholesterol level, D esirable <200 mg/dLBorderline high cholesterol 200-239 mg/dLHigh cholesterol >=240 mg/dLRecommendations of the NCEP Adult Treatment Panel for the following risk-cutoff thresholds for the [place] population. Serum or plasma urea nitroge n measurement (mass/volume)Ordered By: Chelle Troncoso on 09-23-2024 Urea nitrogen [Mass/Vol] 16 mg/dL 4-19 [facility] Sodium levelOrdered By: Lyle Troncoso on 09-23-2024 Sodium [Moles/Vol] 142 mmol/L 133-145 [facility] TSH DL <= 0.005 mIU/L QnOrde red By: Chelle Troncoso on 09-23-2024 TSH Qn 1.510 uIU/mL 0.300-4.200 [facility] Total proteinOrdered By: Costa Troncoso on 09-23-2024 Protein [Mass/Vol] 6.2 g/dL 5.9-8.4 [facility] Triglycerides measurementOrd ered By: Chelle Troncoso on 09-23-2024 Triglyceride [Mass/Vol] 65 mg/dL <199 [facility] Comment on above: The drugs N-Acetylcy steine and Metamizole may falsely depress this assay. Normal range: <150 mg/dLBorderline High: 150-199 mg/dLHigh: 200-499 mg/dLVery High: >500 mg/dL White blood cell (WBC) count Ordered By: Chelle Troncoso on 09-23-2024 WBC (Bld) [#/Vol] 7.9 10*3/uL 4.4-11.0 [facility] 30on 07-17-2024 30 Normal [facility] 30 Normal [facility] CBC (HEMOGRAM)on 07-17-2024 Erythrocyte distribution width (RBC) [Ratio] 15.9 % High 11.5-15.0 [facility] Comment on above: Performed By: #### L [id number] ####Hard Tile Setter: CLARE HUGGINS ([id number])[facility] ([facility])[address] [place] [address] Hematocrit (Bld) [Volume fraction] 30.8 % Low 40.0-52.0 [facility] Comment on above: Performed By: #### L [id number] ####Hard Tile Setter: CLARE HUGGINS ([id number])[facility]ITAL[facility] [place] (SBHLAB)[address] Hemoglobin (Bld) [Mass/Vol] 9.2 g/dL Low 13.0-18.0 [facility] Comment on above: Performed By: #### L [id number] ####Hard Tile Setter: CLARE HUGGINS ([id number])[facility]ITALP[facility] [place]ER[place] (SBHLAB)[address] MCH (RBC) [Entitic mass] 27.3 pg Normal 26.0-34.0 [facility] Comment on above: Performed By: #### L [id number] ####Hard Tile Setter: CLARE HUGGINS ([id number])[facility]OS[facility]ITALP[facility]eto [facility]ENTERAlysa ([facility])[address] MCHC 29.9 % Low 30.5-36.0 [facility] Comment on above: Performed By: #### L [id number] ####Hard Tile Setter: CLARE HUGGINS ([id number])[facility]OS[facility]ITALPrieto JARACARLSBAD MEDICAL CENTERAlysa (SBAB)[address] MCV (RBC) [Entitic vol] 91.4 fL Normal 77.0-99.0 [facility] Comment on above: Performed By: #### L [id number] ####Hard Tile Setter: CLARE HUGGINS ([id number])[facility]ITAL[facility] [place] (SBHLAB)[address] Platelet mean volume (Bld) [Entitic vol] 9.8 fL Normal 9.0-12.7 [facility] Comment on above: Performed By: #### L [id number] ####Hard Tile Setter: CLARE HUGGINS ([id number])[facility]ITALP[facility] JARACARLSBAD MEDICAL CENTERAlysa (SBHLAB)[address] Platelets (Bld) [#/Vol] 202 10*3/uL Normal 140-440 [facility] Comment on above: Performed By: #### L [id number] ####Hard Tile Setter: CLARE HUGGINS ([id number])[facility]OS[facility]ITALP[facility] [place] (SBHLAB)[address] RBC (Bld) [#/Vol] 3.37 10*6/uL Low 4.40-5.90 [facility] Comment on above: Performed By: #### L [id number] ####Hard Tile Setter: CLARE HUGGINS ([id number])[facility]OS[facility]ITALP[facility]eto [place] (SBHLAB)[address] [place] [address] WBC (Bld) [#/Vol] 6.3 10*3/uL Normal 3.6-10.7 [facility] Comment on above: Performed By: #### L [id number] ####Hard Tile Setter: CLARE HUGGINS ([id number])[facility]ITALP[facility] [place] (SBHLAB)[address] [place] [address] CBC panel Auto (Bld)Ordered By: Amador Saenz on 07-17-2024 Erythrocyte distribution width (RBC) [Ratio] 15.9 % High 11.5 - 15.0 % [facility] Hematocrit (Bld) [Volume fraction] 30.8 % Low 40.0 - 52.0 % [facility] Hemoglobin (Bld) [Mass/Vol] 9.2 g/dL Low 13.0 - 18.0 g/dL [facility] Interpretation and review of laboratory results Abnormal [facility] MCH (RBC) [Entitic mass] 27.3 pg 26. 0 - 34.0 pg [facility] MCHC (RBC) [Mass/Vol] 29.9 % Low 30.5 - 36.0 % [facility] MCV (RBC) [Entitic vol] 91.4 fL 77.0 - 99.0 fL [facility] Platelet mean volume (Bld) [Entitic vol] 9.8 fL 9.0 - 12.7 fL [facility] Platelets (Bld) [#/Vol] 202 10*3/uL 140 - 440 10*3/uL [facility] RBC (Bld) [#/Vol] 3.37 10*6/uL Low 4.40 - 5.9 0 10*6/uL [facility] WBC (Bld) [#/Vol] 6.3 10*3/uL 3.6 - 10.7 10*3/uL [facility] COMPREHENSIVE METABOLIC PANE Cricket 07-17-2024 Albumin [Mass/Vol] 2.6 g/dL Low 3.4-4.8 [facility] Comment on above: Performed By: #### L AB17 ####Hard Tile Setter: CLARE HUGGINS ([id number])[facility]ITALA [place] (SBHLAB)[address] ALP [Catalytic activity/Vol] 85 U/L Normal 40-150 [facility] Comment on above: Performed By: #### L AB17 ####Hard Tile Setter: CLARE HUGGINS ([id number])[facility] (SB[facility])[address] ALT [Catalytic activity/Vol] U/L Normal <40 [facility] Comment on above: Performed By: #### L AB17 ####Hard Tile Setter: CLARE HUGGINS ([id number])[facility]OS[facility]ITALA [facility]ERN (SBHLAB)[address] Anion gap [Moles/Vol] 11 mmol/L Normal 3-[address] [facility] Comment on above: Performed By: #### L AB17 ####Hard Tile Setter: CLARE HUGGINS ([id number])[facility] ([facility])[address] AST [Catalytic activity/Vol] 10 U/L Normal <34 [facility] Comment on above: Performed By: #### L AB17 ####Hard Tile Setter: CLARE HUGGINS ([id number])[facility] [place] (SBHLAB)[address] Bilirubin [Mass/Vol] 0.2 mg/dL Normal <1.2 [facility] Comment on above: Performed By: #### L AB17 ####Hard Tile Setter: CLARE HUGGINS ([id number])[facility] [place] (SBHLAB)[address] Calcium [Mass/Vol] 8.7 mg/dL Low 8.8-10.0 [facility] Comment on above: Performed By: #### L AB17 ####Hard Tile Setter: CLARE HUGGINS ([id number])[facility] [place] (SBHLAB)[address] [place] [address] [place] Chloride [Moles/Vol] 111 mmol/L High 98-107 [facility] Comment on above: Performed By: #### L AB17 ####Hard Tile Setter: CLARE HUGGINS ([id number])[facility] [place] (SBHLAB)[address] CO2 [Moles/Vol] 20 mmol/L Low 23-31 [facility] Comment on above: Performed By: #### L AB17 ####Hard Tile Setter: CLARE HUGGINS ([id number])[facility] [place] (SBHLAB)[address] Creatinine [Mass/Vol] 1.09 mg/dL Normal 0.72-1.[address] [facility] Comment on above: Performed By: #### L AB17 ####Hard Tile Setter: CLARE HUGGINS ([id number])[facility]ITALA [facility] (SBHLAB)[address] [place] [address] [place] GLOMERULAR FILTRATION RATE ML/MIN/1.73 SQ M.PREDICTED 74.4 mL/min/1.73m*2 Normal >60.0 [facility] Comment on above: Result Comment: Calc ulation based on the Chronic Kidney Disease Epidemiology Collaboration (CKD-EPI) equation refit without adjustment for race Performed By: #### L AB17 ####Hard Tile Setter: CLARE HUGGINS ([id number])[facility] [place] (SBHL[facility])[address] [place] [address] [place] Glucose [Mass/Vol] 228 mg/dL High 82-115 [facility] Comment on above: Performed By: #### L AB17 ####Hard Tile Setter: CLARE MERCERKRISTYN ([id number])[facility] ([facility])[address] Potassium [Moles/Vol] 4.3 mmol/L Normal 3.5-5.[address] [facility] Comment on above: Result Comment: [facility] potassium values may be up to 0.5 mmol/L lower than serum values. Performed By: #### L AB17 ####Hard Tile Setter: CLARE HUGGINS ([id number])[facility] BARBCARLSBAD MEDICAL CENTERN (SBHLAB)[address] Protein [Mass/Vol] 5.5 g/dL Low 6.4-8.3 [facility] Comment on above: Performed By: #### L AB17 ####Hard Tile Setter: CLARE MERCERKRISTYN ([id number])[facility] ([facility])[address] [place] [address] Sodium [Moles/Vol] 142 mmol/L Normal 136-145 [facility] Comment on above: Performed By: #### L AB17 ####Hard Tile Setter: CLARE MERCERKRISTYN ([id number])[facility] ([facility])[address] Urea nitrogen [Mass/Vol] 28 mg/dL High 9-23 [facility] Comment on above: Performed By: #### L AB17 ####Hard Tile Setter: CLARE HUGGINS ([id number])[facility] ([facility])[address] [place] [address] Comprehensive metabolic 1998 panelon 07-17-2024 Albumin [Mass/Vol] 2.6 g/dL Low 3.4 - 4.8 g/dL [facility] ALP [Catalytic activity/Vol] 85 U/L 40 - 150 U/L [facility] ALT [Catalytic activity/Vol] U/L NINF - 40 U/L [facility] Anion gap [Moles/Vol] 11 mmol/L 3 - 13 mmol/L [facility] AST [Catalytic activity/Vol] 10 U/L NINF - 34 U/L [facility] Bilirubin [Mass/Vol] 0.2 mg/dL NINF - 1.2 mg/dL [facility] Calcium [Mass/Vol] 8.7 mg/dL Low 8.8 - 10. 0 mg/dL [facility] Chloride [Moles/Vol] 111 mmol/L High 98 - 10 7 mmol/L [facility] CO2 [Moles/Vol] 20 mmol/L Low 23 - 31 mmol/L [facility] Creatinine [Mass/Vol] 1.09 mg/dL 0.72 - 1.25 mg/dL [facility] GFR/1.73 sq M.predicted (S/P/Bld) [Vol rate/Area] 74.4 mL/min - PINF [facility] Comment on above: Calculation based on the Chronic Kidney Disease Epidemiology Collaboration (CKD-EPI) equation refit without adjustment for race Glucose [Mass/Vol] 228 mg/dL High 82 - 115 mg/dL [facility] Interpretation and review of laboratory results Abnormal [facility] Potassium [Moles/Vol] 4.3 mmol/L 3.5 - 5.1 mmol/L [facility] Comment on above: Plasma potassium adriana ues may be up to 0.5 mmol/L lower than serum values. Protein [Mass/Vol] 5.5 g/dL Low 6.4 - 8.3 g/dL [facility] Sodium [Moles/Vol] 142 mmol/L 136 - 145 mmol/L [facility] Urea nitrogen [Mass/Vol] 28 mg/dL High 9 - 23 mg/dL [facility] Laboratory - Chemistry and C hemistry - challengeon 07-17-2024 Glucose [Mass/Vol] 253 mg/dL High 70 - 100 mg/dL [facility] Glucose [Mass/Vol] 233 mg/dL High 70 - 100 mg/dL [facility] Glucose [Mass/Vol] 238 mg/dL High 70 - 100 mg/dL [facility] No Panel Informationon 07-17 Interpretation and review of laboratory results Abnormal [facility]formed by: [facility], [address] [place] [id number] CLIA ID: [id number] [facility] Interpretation and review of laboratory results Abnormal [facility] Performed by: [facility], [address] [facility] [address] CLIA ID: [id number] [facility] Interpretation and review of laboratory results Abnormal [facility] Performed by: [facility], [address] [place] [address] CLIA ID: [id number] [facility] Nursing Noteon 07-17-2024 Nursing Note Normal [facility] Progress Noteon 07-17-2024 Progress Note Normal [facility] Progress Note Normal [facility] Progress Note Nutrition rescreen completed. Chart reviewed. 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 Normal [facility] [id number] 07-16-2024 [id number] Normal [facility] [id number] 07-16-2024 [id number] Normal [facility] 30on 07-16-2024 30 Normal [facility] Anesthesia Noteon 07-16-2024 Anesthesia Note Normal [facility] Anesthesia Note Normal [facility] CBC (HEMOGRAM)on 07-16-2024 Erythrocyte distribution width (RBC) [Ratio] 15.9 % High 11.5-15.0 [facility] Comment on above: Performed By: #### L [id number] ####Hard Tile Setter: CLARE HUGGINS ([id number])[facility] ([facility])[address] [place] [address] Hematocrit (Bld) [Volume fraction] 31.0 % Low 40.0-52.0 [facility] Comment on above: Performed By: #### L [id number] ####Hard Tile Setter: CLARE HUGGINS ([id number])[facility] ([facility])[address] [place] [address] Hemoglobin (Bld) [Mass/Vol] 9.0 g/dL Low 13.0-18.0 [facility] Comment on above: Performed By: #### L [id number] ####Hard Tile Setter: CLARE HUGGINS ([id number])[facility] ([facility])[address] [place] [address] MCH (RBC) [Entitic mass] 26.8 pg Normal 26.0-34.0 [facility] Comment on above: Performed By: #### L [id number] ####Hard Tile Setter: CLARE HUGGINS ([id number])[place] (SBHLAB)[address] MCHC 29.0 % Low 30.5-36.0 [facility] Comment on above: Performed By: #### L [id number] ####Hard Tile Setter: CLARE HUGGINS ([id number])[facility] [place] (SBHLAB)[address] MCV (RBC) [Entitic vol] 92.3 fL Normal 77.0-99.0 [facility] Comment on above: Performed By: #### L [id number] ####Hard Tile Setter: CLARE HUGGINS ([id number])[facility] [place] (SBHLAB)[address] Platelet mean volume (Bld) [Entitic vol] 10.2 fL Normal 9.0-12.7 [facility] Comment on above: Performed By: #### L [id number] ####Hard Tile Setter: CLARE HUGGINS ([id number])[facility] HOSPITALPrieto [place] (SBHLAB)[address] [place] [address] [place] Platelets (Bld) [#/Vol] 194 10*3/uL Normal 140-440 [facility] Comment on above: Performed By: #### L [id number] ####Hard Tile Setter: CLARE HUGGINS ([id number])[facility] HOSPITALP[facility]eto [place] (SBHLAB)[address] RBC (Bld) [#/Vol] 3.36 10*6/uL Low 4.40-5.90 [facility] Comment on above: Performed By: #### L [id number] ####Hard Tile Setter: CLARE HUGGINS ([id number])[facility]OS[facility]ITALP[facility] [place] (SBHLAB)[address] WBC (Bld) [#/Vol] 7.3 10*3/uL Normal 3.6-10.7 [facility] Comment on above: Performed By: #### L [id number] ####Hard Tile Setter: CLARE HUGGINS ([id number])[facility] HOSPITALPrieto [facility]ENTER[facility] ([facility])[address] [place] [address] CBC panel Auto (Bld)on 07-16 Erythrocyte distribution width (RBC) [Ratio] 15.9 % High 11.5 - 15.0 % [facility] Hematocrit (Bld) [Volume fraction] 31 % Low 40.0 - 52.0 % [facility] Hemoglobin (Bld) [Mass/Vol] 9 g/dL Low 13.0 - 18.0 g/dL [facility] Interpretation and review of laboratory results Abnormal [facility] MCH (RBC) [Entitic mass] 26.8 pg 26. 0 - 34.0 pg [facility] MCHC (RBC) [Mass/Vol] 29 % Low 30.5 - 36.0 % [facility] MCV (RBC) [Entitic vol] 92.3 fL 77.0 - 99.0 fL [facility] Platelet mean volume (Bld) [Entitic vol] 10.2 fL 9.0 - 12.7 fL [facility] Platelets (Bld) [#/Vol] 194 10*3/uL 140 - 440 10*3/uL [facility] RBC (Bld) [#/Vol] 3.36 10*6/uL Low 4.40 - 5.9 0 10*6/uL [facility] WBC (Bld) [#/Vol] 7.3 10*3/uL 3.6 - 10.7 10*3/uL [facility] COMPREHENSIVE METABOLIC PANE Cricket 07-16-2024 Albumin [Mass/Vol] 2.5 g/dL Low 3.4-4.8 [facility] Comment on above: Performed By: #### L [id number] ####Hard Tile Setter: CLARE HUGGINS ([id number])[facility]OSPITALPrieto [facility]ENTERBERNADINE ([facility])[address] [place] [address] ALP [Catalytic activity/Vol] 81 U/L Normal 40-150 [facility] Comment on above: Performed By: #### L [id number] ####Hard Tile Setter: CLARE HUGGINS ([id number])[facility] [place] (SBHLAB)[address] [place] [address] [place] ALT [Catalytic activity/Vol] 9 U/L Normal <40 [facility] Comment on above: Performed By: #### L [id number] ####Hard Tile Setter: CLARE HUGGINS ([id number])[facility] [place] (SBHLAB)[address] Anion gap [Moles/Vol] 8 mmol/L Normal 3-[address] [facility] Comment on above: Performed By: #### L AB17 ####Hard Tile Setter: CLARE HUGGINS ([id number])[facility]ITALA [place] (SBHLAB)[address] AST [Catalytic activity/Vol] 16 U/L Normal <34 [facility] Comment on above: Performed By: #### L AB17 ####Hard Tile Setter: CLARE HUGGINS ([id number])[facility]ITALA [place] (SBHLAB)[address] Bilirubin [Mass/Vol] 0.3 mg/dL Normal <1.2 [facility] Comment on above: Performed By: #### L [id number] ####Hard Tile Setter: CLARE HGUGINS ([id number])[facility]ITALA [place] (SBHLAB)[address] Calcium [Mass/Vol] 8.5 mg/dL Low 8.8-10.0 [facility] Comment on above: Performed By: #### L AB17 ####Hard Tile Setter: CLARE HUGGINS ([id number])[facility]ITAL[facility] [place] (SBHLAB)[address] [place] [address] [place] Chloride [Moles/Vol] 111 mmol/L High 98-107 [facility] Comment on above: Performed By: #### L AB17 ####Hard Tile Setter: CLARE HUGGINS ([id number])[facility]ITALA [place] (SBHLAB)[address] [place] [address] [place] CO2 [Moles/Vol] 20 mmol/L Low 23-31 [facility] Comment on above: Performed By: #### L AB17 ####Hard Tile Setter: CLARE HUGGINS ([id number])[facility]OS[facility]ITALPrieto [place] ([facility])[address] Creatinine [Mass/Vol] 1.17 mg/dL Normal 0.72-1.[address] [facility] Comment on above: Performed By: #### L AB17 ####Hard Tile Setter: CLARE HUGGINS ([id number])[facility]ITALP[facility]eto [place] ([facility])[address] [place] [address] [place] GLOMERULAR FILTRATION RATE ML/MIN/1.73 SQ M.PREDICTED 68.3 mL/min/1.73m*2 Normal >60.0 [facility] Comment on above: Result Comment: Calc ulation based on the Chronic Kidney Disease Epidemiology Collaboration (CKD-EPI) equation refit without adjustment for race Performed By: #### L [id number] ####Hard Tile Setter: CLARE HUGGINS ([id number])[facility] ([facility])[address] Glucose [Mass/Vol] 186 mg/dL High 82-115 [facility] Comment on above: Performed By: #### L AB17 ####Hard Tile Setter: CLARE HUGGINS ([id number])[facility] ([facility])[address] [place] [address] Potassium [Moles/Vol] 4.3 mmol/L Normal 3.5-5.[address] [facility] Comment on above: Result Comment: [facility] potassium values may be up to 0.5 mmol/L lower than serum values. Performed By: #### L AB17 ####Hard Tile Setter: CLARE HUGGINS ([id number])[facility] ([facility])[address] Protein [Mass/Vol] 5.5 g/dL Low 6.4-8.3 [facility] Comment on above: Performed By: #### L [id number] ####Hard Tile Setter: CLARE HUGGINS ([id number])[facility]ITAL[facility] (SBHLAB)[address] Sodium [Moles/Vol] 139 mmol/L Normal 136-145 [facility] Comment on above: Performed By: #### L [id number] ####Hard Tile Setter: CLARE HUGGINS ([id number])[facility] GERALDDIGN[facility] (SBHLAB)[address] Urea nitrogen [Mass/Vol] 32 mg/dL High 9-23 [facility] Comment on above: Performed By: #### L AB17 ####Hard Tile Setter: CLARE HUGGINS ([id number])[facility] (SBHLAB)[address] Comprehensive metabolic 1998 panelon 07-16-2024 Albumin [Mass/Vol] 2.5 g/dL Low 3.4 - 4.8 g/dL [facility] ALP [Catalytic activity/Vol] 81 U/L 40 - 150 U/L [facility] ALT [Catalytic activity/Vol] 9 U/L NINF - 40 U/L [facility] Anion gap [Moles/Vol] 8 mmol/L 3 - 13 mmol/L [facility] AST [Catalytic activity/Vol] 16 U/L [facility] - 34 U/L [facility] Bilirubin [Mass/Vol] 0.3 mg/dL [facility] - 1.2 mg/dL [facility] Calcium [Mass/Vol] 8.5 mg/dL Low 8.8 - 10. 0 mg/dL [facility] Chloride [Moles/Vol] 111 mmol/L High 98 - 10 7 mmol/L [facility] CO2 [Moles/Vol] 20 mmol/L Low 23 - 31 mmol/L [facility] Creatinine [Mass/Vol] 1.17 mg/dL 0.72 - 1.25 mg/dL [facility] GFR/1.73 sq M.predicted (S/P/Bld) [Vol rate/Area] 68.3 mL/min - PINF [facility] Comment on above: Calculation based on the Chronic Kidney Disease Epidemiology Collaboration (CKD-EPI) equation refit without adjustment for race Glucose [Mass/Vol] 186 mg/dL High 82 - 115 mg/dL [facility] Interpretation and review of laboratory results Abnormal [facility] Potassium [Moles/Vol] 4.3 mmol/L 3.5 - 5.1 mmol/L [facility] Comment on above: Plasma potassium adriana ues may be up to 0.5 mmol/L lower than serum values. Protein [Mass/Vol] 5.5 g/dL Low 6.4 - 8.3 g/dL [facility] Sodium [Moles/Vol] 139 mmol/L 136 - 145 mmol/L [facility] Urea nitrogen [Mass/Vol] 32 mg/dL High 9 - 23 mg/dL [facility] Consulton 07-16-2024 Consult Normal [facility] Consult Normal [facility] HEMOGLOBIN AND HEMATOCRIT, B LOODon 07-16-2024 Hematocrit (Bld) [Volume fraction] 28.9 % Low 40.0-52.0 [facility] Comment on above: Performed By: #### L [id number] ####Hard Tile Setter: CLARE HUGGINS ([id number])[facility] ([facility])[address] [place] [address] Hemoglobin (Bld) [Mass/Vol] 8.5 g/dL Low 13.0-18.0 [facility] Comment on above: Performed By: #### L [id number] ####Hard Tile Setter: CLARE HUGGINS ([id number])[facility] ([facility])[address] [place] [address] Hematocrit (Bld) [Volume fraction] 30.2 % Low 40.0-52.0 [facility] Comment on above: Performed By: #### L [id number] ####Hard Tile Setter: CLARE HUGGINS ([id number])[facility] (SBHLAB)[address] Hemoglobin (Bld) [Mass/Vol] 9.1 g/dL Low 13.0-18.0 [facility] Comment on above: Performed By: #### L [id number] ####Hard Tile Setter: CLARE HUGGINS ([id number])[facility] BARBDIGNITY [facility] (SBHLAB)[address] [place] [address] [place] Hemoglobin (Bld) [Mass/Vol]o n 07-16-2024 Hematocrit (Bld) [Volume fraction] 28.9 % Low 40.0 - 52.0 % [facility] Interpretation and review of laboratory results Abnormal [facility] Hemoglobin (Bld) [Mass/Vol]O rdered By: Verónica Kitchen on 07-16-2024 Hematocrit (Bld) [Volume fraction] 30.2 % Low 40.0 - 52.0 % [facility] Interpretation and review of laboratory results Abnormal [facility] IRON AND TIBCon 07-16-2024 IRON BINDING CAPACITY 265 ug/dL Normal 250-[address] [facility] Comment on above: Performed By: #### L [id number] ####Hard Tile Setter: CLARE HUGGINS ([id number])[facility] (SBHLAB)[address] IRON SATURATION 10.6 % Low 20.0-50.0 [facility] Comment on above: Performed By: #### L [id number] ####Hard Tile Setter: CLARE HUGGINS ([id number])[facility] (SBHLAB)[address] IRON, TOTAL 28 ug/dL Low 65-175 [facility] Comment on above: Performed By: #### L [id number] ####Hard Tile Setter: CLARE HUGGINS ([id number])[facility] (SBHLAB)[address] Iron and Iron binding capaci ty panelon 07-16-2024 Interpretation and review of laboratory results Abnormal [facility] Iron [Mass/Vol] 28 ug/dL Low 65 - 175 ug/dL [facility] Iron binding capacity [Mass/Vol] 265 ug/dL 250 - 450 ug/dL [facility] Iron saturation [Mass fraction] 10.6 % Low 20.0 - 50.0 % [facility] Laboratory - Chemistry and C hemistry - challengeon 07-16-2024 Glucose [Mass/Vol] 268 mg/dL High 70 - 100 mg/dL [facility] Glucose [Mass/Vol] 296 mg/dL High 70 - 100 mg/dL [facility] Glucose [Mass/Vol] 219 mg/dL High 70 - 100 mg/dL [facility] Glucose [Mass/Vol] 194 mg/dL High 70 - 100 mg/dL [facility] Laboratory - Coagulationon 0 07-16-2024 aPTT Coag (PPP) [Time] 30.2 s 20.0 - 30.5 s [facility] INR Coag (PPP) [Relative time] 1 {INR} 0.9 - 1.1 [facility] Comment on above: Recommended Anticoag ulant [...] 11.5 s 9.0 - 1 2.0 s [facility] Laboratory - Hematology and Cell countson 07-16-2024 Hemoglobin (Bld) [Mass/Vol] 8.5 g/dL Low 13.0 - 18.0 g/dL [facility] Laboratory - Hematology and Cell countsOrdered By: Verónica Kitchen on 07-16-2024 Hemoglobin (Bld) [Mass/Vol] 9.1 g/dL Low 13.0 - 18.0 g/dL [facility] No Panel Informationon 07-16 Interpretation and review of laboratory results Abnormal [facility] Performed by: [facility], [address] [place] [address] CLIA ID: [id number] [facility] Bl[facility] Interpretation and review of laboratory results Abnormal [facility] Performed by: [facility] [place], [address] [place] [address] CLIA ID: [id number] [facility] Interpretation and review of laboratory results Abnormal [facility] Performed by: [facility], [address] [facility] [address] CLIA ID: [id number] [facility] Interpretation and review of laboratory results Abnormal [facility] Performed by: [facility], [address] [place] [address] CLIA ID: [id number] [facility] Interpretation and review of laboratory results Normal [facility] Op Noteon 07-16-2024 Op Note Normal [facility] PROTIME AND APTTon aPTT Coag (Bld) [Time] 30.2 s Normal 20.0-30.5 [facility] Comment on above: Performed By: #### L [id number] ####Hard Tile Setter: CLARE HUGGINS ([id number])[facility] ([facility])[address] [place] [address] INR Coag (PPP) [Relative time] 1.0 {INR} Normal 0.9-1.1 [facility] Comment on above: Result Comment: Lux [...] prevent Myocardial Infarction Performed By: #### L [id number] ####Hard Tile Setter: CLARE HUGGINS ([id number])[facility] ([facility])[address] [place] [address] PT Coag (PPP) [Time] 11.5 s Normal 9.0-12.0 [facility] Comment on above: Performed By: #### L [id number] ####Hard Tile Setter: CLARE HUGGINS ([id number])[facility] ([facility])[address] [place] [address] Progress Noteon 07-16-2024 Progress Note [facility] Progress Note Normal [facility] Progress Note Normal [facility] [id number] 07-15-2024 [id number] Per zachary vasquez t is residential and bedhold at [facility] and can return when medically stable. . Normal [facility] BLOOD GAS ARTERIALon 025 AMOUNT OF OXYGEN 6 Normal [facility] Comment on above: Performed By: #### L [id number] ####Hard Tile Setter: CLARE HUGGINS ([id number])[facility]OSPITALPrieto [facility]ENTERBERNADINE (SBHLAB)[address] Base excess Calc (Bld) [Moles/Vol] -3.3000 mmol/L Low -3.0-3.0 [facility] Comment on above: Performed By: #### L AB76 ####Hard Tile Setter: CLARE HUGGINS ([id number])[facility]ITALA [place] (SBHLAB)[address] CO2 [Moles/Vol] 24.4 mmol/L Normal 22.0-28.0 [facility] Comment on above: Performed By: #### L AB76 ####Hard Tile Setter: CLARE HUGGINS ([id number])[facility]ITALP[facility]eto [facility] (SBHLAB)[address] HCO3 (Bld) [Moles/Vol] 22.9 mmol/L Normal 21.0-27.0 [facility] Comment on above: Performed By: #### L AB76 ####Hard Tile Setter: CLARE HUGGINS ([id number])[facility]ITALP[facility]eto [place] (SBHLAB)[address] Hemoglobin (Bld) [Mass/Vol] 11.4 g/dL Low Screen only [facility] Comment on above: Performed By: #### L AB76 ####Hard Tile Setter: CLARE HUGGINS ([id number])[facility] (SBHLAB)[address] OXYGEN SATURATION (%) IN ARTERIAL BLOOD 92.2 % Low 97.0-99.0 [facility] Comment on above: Performed By: #### L AB76 ####Hard Tile Setter: CLARE HUGGINS ([id number])[facility] (SBHLAB)[address] PCO2 ARTERIAL 46.3 mm Hg Normal 35.0-48.0 [facility] Comment on above: Performed By: #### L AB76 ####Hard Tile Setter: CLARE HUGGINS ([id number])[facility] ([facility])[address] PH ARTERIAL 7.313 Low 7.350-7.450 [facility] Comment on above: Performed By: #### L AB76 ####Hard Tile Setter: CLARE HUGGINS ([id number])[facility] ([facility])[address] PO2 ARTERIAL 70.1 mm Hg Low 83.0-108.0 [facility] Comment on above: Performed By: #### L AB76 ####Hard Tile Setter: CLARE HUGGINS ([id number])[facility] ([facility])[address] SOURCE OF OXYGEN Nasal Cannula (LPM) Normal [facility] Comment on above: Performed By: #### L AB76 ####Hard Tile Setter: CLARE HUGGINS ([id number])[facility] ([facility])[address] [place] [address] BLOOD TYPE AND SCREEN GELon 07-15-2024 ABO GROUPING A Normal [facility] Comment on above: Performed By: #### L [id number] ####Hard Tile Setter: CLARE HUGGINS ([id number])[facility] ([facility])[address] [place] [address] RH TYPE IN BLOOD Positive Normal [facility] Comment on above: Performed By: #### L [id number] ####Hard Tile Setter: CLARE HUGIGNS ([id number])[facility] ([facility])[address] [place] [address] Blood type and Crossmatch corby joe (Genoveva)on 07-15-2024 ABO group Nom (Bld) A [facility] Blood group antibody screen GEL Ql Negative [facility] D Ag Ql (RBC) Positive [facility]alt [facility] CBC W Auto Differential pane l (Bld)Ordered By: Arcadio Shelton on 07-15-2024 Basophils (Bld) [#/Vol] 0 10*3/uL 0.0 - 0.2 10*3/uL [facility] Basophils/100 WBC (Bld) 0.2 % 0.0 - 2.0 % [facility] Eosinophils (Bld) [#/Vol] 0 10*3/uL 0.0 - 0.5 10*3/uL [facility] Eosinophils/100 WBC (Bld) 0.3 % 0.0 - 6.0 % [facility] Erythrocyte distribution width (RBC) [Ratio] 15.9 % High 11.5 - 15.0 % [facility] Hematocrit (Bld) [Volume fraction] 33.6 % Low 40.0 - 52.0 % [facility] Hemoglobin (Bld) [Mass/Vol] 10 g/dL Low 13.0 - 18.0 g/dL [facility] Immature granulocytes (Bld) [#/Vol] 0.1 10*3/uL High NINF - 0.1 10*3/uL [facility] Immature granulocytes/100 WBC (Bld) 0.4 % 0.0 - 2.0 % [facility] Interpretation and review of laboratory results Abnormal [facility] Lymphocytes (Bld) [#/Vol] 1.1 10*3/uL 1.0 - 4.3 10*3/uL [facility] Lymphocytes/100 WBC (Bld) 8.4 % Low 15.0 - 45.0 % [facility] MCH (RBC) [Entitic mass] 27 pg 26. 0 - 34.0 pg [facility] MCHC (RBC) [Mass/Vol] 29.8 % Low 30.5 - 36.0 % [facility] MCV (RBC) [Entitic vol] 90.6 fL 77.0 - 99.0 fL [facility] Monocytes (Bld) [#/Vol] 1.2 10*3/uL High 0.0 - 0.9 10*3/uL [facility] Monocytes/100 WBC (Bld) 9.6 % 5.0 - 13.0 % [facility] Neutrophils (Bld) [#/Vol] 10.4 10*3/uL High 1.8 - 7.5 10*3/uL [facility] Neutrophils/100 WBC (Bld) 81.1 % 38.0 - 82.0 % [facility] Nucleated RBC/100 WBC (Bld) [Ratio] 0 % [facility] Platelet mean volume (Bld) [Entitic vol] 10.6 fL 9.0 - 12.7 fL [facility] Platelets (Bld) [#/Vol] 221 10*3/uL 140 - 440 10*3/uL [facility] RBC (Bld) [#/Vol] 3.71 10*6/uL Low 4.40 - 5.9 0 10*6/uL [facility] WBC (Bld) [#/Vol] 12.8 10*3/uL High 3.6 - 10.7 10*3/uL [facility] CBC WITH AUTO DIFFERENTIALon 07-15-2024 Basophils (Bld) [#/Vol] 0.0 10*3/uL Normal 0.0-0.2 [facility] Comment on above: Performed By: #### L [id number] ####Hard Tile Setter: CLARE HUGGINS ([id number])[facility] ([facility])[address] [place] [address] Basophils/100 WBC (Bld) 0.2 % Normal 0.0-2.0 [facility] Comment on above: Performed By: #### L [id number] ####Hard Tile Setter: CLARE HUGGINS ([id number])[facility] ([facility])[address] Eosinophils (Bld) [#/Vol] 0.0 10*3/uL Normal 0.0-0.5 [facility] Comment on above: Performed By: #### L [id number] ####Hard Tile Setter: CLARE HUGGINS ([id number])[facility] ([facility])[address] Eosinophils/100 WBC (Bld) 0.3 % Normal 0.0-6.0 [facility] Comment on above: Performed By: #### L [id number] ####Hard Tile Setter: CLARE MERCERKRISTYN ([phone])[facility] ([facility])[address] [place] [address] Erythrocyte distribution width (RBC) [Ratio] 15.9 % High 11.5-15.0 [facility] Comment on above: Performed By: #### L [id number] ####Hard Tile Setter: CLARE MERCERKRISTYN ([id number])[facility] ([facility])[address] [place] [address] Hematocrit (Bld) [Volume fraction] 33.6 % Low 40.0-52.0 [facility] Comment on above: Performed By: #### L [id number] ####Hard Tile Setter: CLARE MERCERKRISTYN ([phone])[facility] ([facility])[address] [place] [address] Hemoglobin (Bld) [Mass/Vol] 10.0 g/dL Low 13.0-18.0 [facility] Comment on above: Performed By: #### L [id number] ####Hard Tile Setter: CLARE HUGGINS ([id number])[facility] ([facility])[address] [place] [address] IMMATURE GRANS % 0.4 % Normal 0.0-2.0 [facility] Comment on above: Performed By: #### L [id number] ####Hard Tile Setter: CLARE HUGGINS ([id number])[facility] ([facility])[address] [place] [address] IMMATURE GRANS ABSOLUTE 0.1 10*3/uL High <0.1 [facility] Comment on above: Performed By: #### L [id number] ####Hard Tile Setter: CLARE HUGGINS ([id number])[facility] ([facility])[address] [place] [address] Lymphocytes (Bld) [#/Vol] 1.1 10*3/uL Normal 1.0-4.3 [facility] Comment on above: Performed By: #### L [id number] ####Hard Tile Setter: CLARE WINTERDaniloKRISTYN ([phone])[facility] [place] ([facility])[address] Lymphocytes/100 WBC (Bld) 8.4 % Low 15.0-45.0 [facility] Comment on above: Performed By: #### L [id number] ####Hard Tile Setter: CLARE WINTERDaniloKRISTYN ([phone])[facility]ITAL[facility] ([facility])[address] MCH (RBC) [Entitic mass] 27.0 pg Normal 26.0-34.0 [facility] Comment on above: Performed By: #### L [id number] ####Hard Tile Setter: CLARE JOSELUIS ([id number])[facility]ITAL[facility] [place] (SBHLAB)[address] MCHC 29.8 % Low 30.5-36.0 [facility] Comment on above: Performed By: #### L [id number] ####Hard Tile Setter: CLARE WINTERDaniloKRISTYN ([id number])[facility]ITAL[facility] (SBHLAB)[address] MCV (RBC) [Entitic vol] 90.6 fL Normal 77.0-99.0 [facility] Comment on above: Performed By: #### L [id number] ####Hard Tile Setter: CLARE HUGGINS ([id number])[facility]ITAL[facility] (SBHLAB)[address] Monocytes (Bld) [#/Vol] 1.2 10*3/uL High 0.0-0.9 [facility] Comment on above: Performed By: #### L [id number] ####Hard Tile Setter: CLARE HUGGINS ([id number])[facility]ITAL[facility] (SBHLAB)[address] Monocytes/100 WBC (Bld) 9.6 % Normal 5.0-13.0 [facility] Comment on above: Performed By: #### L [id number] ####Hard Tile Setter: CLARE WINTERDaniloKRISTYN ([id number])[facility] [place] (SBHLAB)[address] NEUTROPHILS ABSOLUTE 10.4 10*3/uL High 1.8-7.5 [facility] Comment on above: Performed By: #### L [id number] ####Hard Tile Setter: CLARE MERCERKRISTYN ([id number])[facility] [place] (SBHLAB)[address] Neutrophils/100 WBC (Bld) 81.1 % Normal 38.0-82.0 [facility] Comment on above: Performed By: #### L [id number] ####Hard Tile Setter: CLARE JOSELUIS ([id number])[facility] [place] (SBHLAB)[address] NRBC 0.0 /100 WBCs Normal 0.0-2.0 [facility] Comment on above: Performed By: #### L [id number] ####Hard Tile Setter: CLARE MERCERKRISTYN ([id number])[facility] [place] (SBHLAB)[address] Platelet mean volume (Bld) [Entitic vol] 10.6 fL Normal 9.0-12.7 [facility] Comment on above: Performed By: #### L [id number] ####Hard Tile Setter: CLARE HUGGINS ([id number])[facility] [place] (SBHLAB)[address] Platelets (Bld) [#/Vol] 221 10*3/uL Normal 140-440 [facility] Comment on above: Performed By: #### L [id number] ####Hard Tile Setter: CLARE MERCERKRISTYN ([id number])[facility] [place] (SBHLAB)[address] RBC (Bld) [#/Vol] 3.71 10*6/uL Low 4.40-5.90 [facility] Comment on above: Performed By: #### L [id number] ####Hard Tile Setter: CLARE HUGGINS ([id number])[facility] [place] (SBHLAB)[address] WBC (Bld) [#/Vol] 12.8 10*3/uL High 3.6-10.7 [facility] Comment on above: Performed By: #### L [id number] ####Hard Tile Setter: CLARE HUGGINS ([id number])[facility] [place] (SBHLAB)[address] COMPREHENSIVE METABOLIC PANE Cricket 07-15-2024 Albumin [Mass/Vol] 2.8 g/dL Low 3.4-4.8 [facility] Comment on above: Performed By: #### L AB68, LAB17, LAB99 ####Hard Tile Setter: CLARE HUGGINS ([id number])[facility] [place] (SBHLAB)[address] ALP [Catalytic activity/Vol] 94 U/L Normal 40-150 [facility] Comment on above: Performed By: #### L ABKeegan, LAB17, LAB99 ####Hard Tile Setter: CLARE HUGGINS ([id number])[facility] [place] (SBHLAB)[address] ALT [Catalytic activity/Vol] 13 U/L Normal <40 [facility] Comment on above: Performed By: #### L AB68, LAB17, LAB99 ####Hard Tile Setter: CLARE HUGGINS ([id number])[facility] [place] (SBHLAB)[address] Anion gap [Moles/Vol] 11 mmol/L Normal 3-13 [facility] Comment on above: Performed By: #### L AB68, LAB17, LAB99 ####Hard Tile Setter: CLARE HUGGINS ([id number])[facility] [place] (SBHLAB)[address] AST [Catalytic activity/Vol] 22 U/L Normal <34 [facility] Comment on above: Result Comment: TCPo tential interference from hemolysis Performed By: #### Joyce GIRALDO, LAB17, LAB99 ####Hard Tile Setter: CLARE HUGGINS ([id number])[facility] [place] (SBHLAB)[address] Bilirubin [Mass/Vol] 0.4 mg/dL Normal <1.2 [facility] Comment on above: Performed By: #### Joyce GIRALDO, LAB17, LAB99 ####Hard Tile Setter: CLARE HUGGINS ([id number])[facility] [place] (SBHLAB)[address] Calcium [Mass/Vol] 8.4 mg/dL Low 8.8-10.0 [facility] Comment on above: Performed By: #### Joyce GIRALDO, LAB17, LAB99 ####Hard Tile Setter: CLARE HUGGINS ([id number])[facility] [place] (SBHLAB)[address] Chloride [Moles/Vol] 107 mmol/L Normal 98-107 [facility] Comment on above: Performed By: #### Joyce GIRALDO, LAB17, LAB99 ####Hard Tile Setter: CLARE HUGGINS ([id number])[facility] [place] (SBHLAB)[address] CO2 [Moles/Vol] 18 mmol/L Low 23-31 [facility] Comment on above: Performed By: #### Joyce GIRALDO, LAB17, LAB99 ####Hard Tile Setter: CLARE HUGGINS ([id number])[facility] [place] (SBHLAB)155 [place] [address] [place] Creatinine [Mass/Vol] 1.49 mg/dL High 0.72-1.[address] [facility] Comment on above: Performed By: #### Joyce GIRALDO, LAB17, LAB99 ####Hard Tile Setter: CLARE HUGGINS ([id number])[facility] [place] (SBHLAB)155 [place] [address] [place] GLOMERULAR FILTRATION RATE ML/MIN/1.73 SQ M.PREDICTED 51.1 mL/min/1.73m*2 Low >60.0 [facility] Comment on above: Result Comment: Calc ulation based on the Chronic Kidney Disease Epidemiology Collaboration (CKD-EPI) equation refit without adjustment for race Performed By: #### Joyce GIRALDO, LAB17, LAB99 ####Hard Tile Setter: CLARE HUGGINS ([id number])[facility] [place] (SBHLAB)[address] Glucose [Mass/Vol] 305 mg/dL High 82-115 [facility] Comment on above: Performed By: #### Joyce GIRALDO, LAB17, LAB99 ####Hard Tile Setter: CLARE HUGGINS ([id number])[facility] (SBHLAB)[address] Potassium [Moles/Vol] 5.1 mmol/L Normal 3.5-5.[address] [facility] Comment on above: Result Comment: [facility] potassium values may be up to 0.5 mmol/L lower than serum values. Performed By: #### Joyce GIRALDO, LAB17, LAB99 ####Hard Tile Setter: CLARE HUGGINS ([id number])[facility] [place] (SBHLAB)[address] Protein [Mass/Vol] 6.0 g/dL Low 6.4-8.3 [facility] Comment on above: Performed By: #### Joyce GIRALDO, LAB17, LAB99 ####Hard Tile Setter: CLARE HUGGINS ([id number])[facility] [place] (SBHLAB)155 [place] [address] [place] Sodium [Moles/Vol] 136 mmol/L Normal 136-145 [facility] Comment on above: Performed By: #### Joyce GIRALDO, LAB17, LAB99 ####Hard Tile Setter: CLARE HUGGINS ([id number])[facility] (SBHLAB)155 [place] [address] [place] Urea nitrogen [Mass/Vol] 37 mg/dL High 9-23 [facility] Comment on above: Performed By: #### L AB68, LAB17, LAB99 ####Hard Tile Setter: CLARE HUGGINS ([id number])[facility]ERAL[facility]ERNADINE (SBHLAB)[address] [place] [address] Comprehensive metabolic 1998 panelon 07-15-2024 Albumin [Mass/Vol] 2.8 g/dL Low 3.4 - 4.8 g/dL [facility] ALP [Catalytic activity/Vol] 94 U/L 40 - 150 U/L [facility] ALT [Catalytic activity/Vol] 13 U/L NINF - 40 U/L [facility] Anion gap [Moles/Vol] 11 mmol/L 3 - 13 mmol/L [facility] AST [Catalytic activity/Vol] 22 U[facility]L [facility] U/L [facility] Comment on above: TC Potential interference from hemolysis Bilirubin [Mass/Vol] 0.4 mg/dL NINF - 1.2 mg/dL [facility] Calcium [Mass/Vol] 8.4 mg/dL Low 8.8 - 10. 0 mg/dL [facility] Chloride [Moles/Vol] 107 mmol/L 98 - 10 7 mmol/L [facility] CO2 [Moles/Vol] 18 mmol/L Low 23 - 31 mmol/L [facility] Creatinine [Mass/Vol] 1.49 mg/dL High 0.72 - 1.25 mg/dL [facility] GFR/1.73 sq M.predicted (S/P/Bld) [Vol rate/Area] 51.1 mL/min Low - PINF [facility] Comment on above: Calculation based on the Chronic Kidney Disease Epidemiology Collaboration (CKD-EPI) equation refit without adjustment for race Glucose [Mass/Vol] 305 mg/dL High 82 - 115 mg/dL [facility] Interpretation and review of laboratory results Abnormal [facility] Potassium [Moles/Vol] 5.1 mmol/L 3.5 - 5.1 mmol/L [facility] Comment on above: Plasma potassium adriana ues may be up to 0.5 mmol/L lower than serum values. Protein [Mass/Vol] 6 g/dL Low 6.4 - 8.3 g/dL [facility] Sodium [Moles/Vol] 136 mmol/L 136 - 145 mmol/L [facility] Urea nitrogen [Mass/Vol] 37 mg/dL High 9 - 23 mg/dL [facility] ED Nursing Noteon 07-15-2024 ED Nursing Note Patient taken to the floor via medic. Normal [facility] ED Nursing Note Patient arrives from [facility] via ambulance due to coffee ground emesis twice. Normal [facility] ED Provider Noteon ED Provider Note Normal [facility] FERRITINon 07-15-2024 Ferritin [Mass/Vol] 80 ng/mL Normal 22-275 [facility] Comment on above: Result Comment: TAVO Hernandez COMMENTS:Ferritin levels below 10 ng/mL have been reported as indicative of iron deficiency anemia. Performed By: #### L AB68, LAB17, LAB99 ####Hard Tile Setter: CLARE HUGGINS ([id number])[facility] ([facility])[address] [place] [address] Ferritin [Mass/Vol]on 2024 Interpretation and review of laboratory results Normal [facility] Ferritin levels belo w 10 ng/mL have been reported as indicative of iron deficiency anemia. [facility] HEMOGLOBIN A1Con 07-15-2024 Glucose [Mass/Vol] 186 mg/dL Normal [facility] Comment on above: Result Comment: TAVO Hernandez COMMENTS:HbA1c values of 5.7-6.4 percent indicate an increased risk for developing diabetes mellitus. HbA1c values greater than or equal to 6.5 percent are diagnostic of diabetes mellitus. For diagnosis of diabetes in individuals without unequivocal hyperglycemia, results should be confirmed by repeat testing. Performed By: #### L AB90 ####Hard Tile Setter: CLARE HUGGINS ([id number])[facility] ([facility])[address] [place] [address] HEMOGLOBIN A1C 8.1 %HbA1C High <5.7 [facility] Comment on above: Result Comment: Norm al less than 5.7%Prediabetes 5.7% to 6.4%Diabetes 6.5% or higher--HgbA1C levels may not be accurate in patients who have renal disease, received recent blood transfusions, are anemic, or who have dyshemoglobinemia. Performed By: #### L AB90 ####Hard Tile Setter: CLARE HUGGINS ([id number])[facility] (SBHLAB)[address] [place] [address] HEMOGLOBIN AND HEMATOCRIT, B LOODon 07-15-2024 Hematocrit (Bld) [Volume fraction] 30.4 % Low 40.0-52.0 [facility] Comment on above: Performed By: #### L [id number] ####Hard Tile Setter: CLARE HUGGINS ([id number])[facility] ([facility])[address] [place] [address] Hemoglobin (Bld) [Mass/Vol] 9.2 g/dL Low 13.0-18.0 [facility] Comment on above: Performed By: #### L [id number] ####Hard Tile Setter: CLARE HUGGINS ([id number])[facility] ([facility])[address] [place] [address] Hemoglobin (Bld) [Mass/Vol]O rdered By: Haydee Dixon on 07-15-2024 Hematocrit (Bld) [Volume fraction] 30.4 % Low 40.0 - 52.0 % [facility] Interpretation and review of laboratory results Abnormal [facility] LIPASEon 07-15-2024 Lipase [Catalytic activity/Vol] 8 U/L Normal <55 [facility] Comment on above: Performed By: #### L AB68, LAB17, LAB99 ####Hard Tile Setter: CLARE HUGGINS ([id number])[facility] ([facility])[address] [place] [address] Laboratory - Chemistry and C hemistry - challengeon 07-15-2024 Glucose [Mass/Vol] 191 mg/dL High 70 - 100 mg/dL [facility] Glucose [Mass/Vol] 261 mg/dL High 70 - 100 mg/dL [facility] Ferritin [Mass/Vol] 80 ng/mL 22 - 275 ng/mL [facility] Average glucose Estimated from glycated hemoglobin (Bld) [Mass/Vol] 186 mg/dL [facility] Lipase [Catalytic activity/Vol] 8 U/L NINF - 55 U/L [facility] Laboratory - Chemistry and C hemistry - challengeOrdered By: Papo Christopher on 07-15-2024 Base excess Calc (Bld) [Moles/Vol] -3.3000 mmol/L Low -3.0 - 3.0 mmol/L [facility] CO2 (Bld) [Partial pressure] 46.3 mm[Hg] [facility] CO2 [Moles/Vol] 24.4 mmol/L 22.0 - 28.0 mmol/L [facility] HCO3 (Bld) [Moles/Vol] 22.9 mmol/L 21.0 - 27.0 mmol/L [facility] Oxygen (Bld) [Partial pressure] 70.1 mm[Hg] Low [facility] pH (Bld) 7.313 [pH] Low 7.350 - 7.450 [facility] Laboratory - Coagulationon 0 07-15-2024 aPTT Coag (PPP) [Time] 31.2 s High 20.0 - 30.5 s [facility] INR Coag (PPP) [Relative time] 1.1 {INR} 0.9 - 1.1 [facility] Comment on above: Recommended Anticoag ulant [...] s High 9.0 - 1 2.0 s [facility] Laboratory - Hematology and Cell countsOrdered By: Haydee Dixon on 07-15-2024 Hemoglobin (Bld) [Mass/Vol] 9.2 g/dL Low 13.0 - 18.0 g/dL [facility] Laboratory - Hematology and Cell countsOrdered By: Papo Christopher on 07-15-2024 Hemoglobin (Bld) [Mass/Vol] 11.4 g/dL Low Screen only [facility] Laboratory - Hematology and Cell countson 07-15-2024 HbA1c (Bld) [Mass fraction] 8.1 % High NINF [facility] Comment on above: Normal less than 5.7 % Prediabetes 5.7% to 6.4% Diabetes 6.5% or higher --HgbA1C levels may not be accurate in patients who have renal disease, received recent blood transfusions, are anemic, or who have dyshemoglobinemia. Laboratory - Microbiology an d Antimicrobial susceptibilityon 07-15-2024 FLUAV RNA JOAN+probe Ql (Resp) Not detected Not Detected [facility] FLUBV RNA JOAN+probe Ql (Resp) Not detected Not Detected [facility] RSV RNA JOAN+probe Ql (Resp) Not detected Not Detected [facility] SARS-CoV-2 (COVID-19) RNA JOAN+probe Ql (Resp) Not detected Not Detected [facility] SARS-CoV-2 (COVID-19) RNA JOAN+probe Ql (Unsp spec) Methodology: real-time, RT-PCR The SARS-CoV-2, Flu A/B, and RSV Combo assay is intended for in vitro diagnostic use under the FDA Emergency Use Authorization (EUA). This test has not been FDA cleared or approved. In compliance with this authorization, please visit www.fda.gov/media/63764 5/download or www.fda.gov/media/81123 6/download to access the applicable information sheets. [email or web address] [facility] Lipase [Catalytic activity/V ol]on 07-15-2024 Interpretation and review of laboratory results Normal [email or web address] [facility] No Panel Informationon 07-15 Interpretation and review of laboratory results Abnormal [email or web address] [facility] Performed by: [facility], [address] [place] [address] CLIA ID: [id number] [email or web address] [facility] Interpretation and review of laboratory results Abnormal [email or web address] [facility] Performed by: [facility], [address] [place] [id number] CLIA ID: [id number] [facility] [employer] [facility] Interpretation and review of laboratory results Abnormal [facility] HbA1c values of 5.7- 6.4 percent indicate an increased risk for developing diabetes mellitus. HbA1c values greater than or equal to 6.5 percent are diagnostic of diabetes mellitus. For diagnosis of diabetes in individuals without unequivocal hyperglycemia, results should be confirmed by repeat testing. [email or web address] [facility] Interpretation and review of laboratory results Abnormal [facility] [email or web address] [facility] No Panel InformationOrdered By: Papo Christopher on 07-15-2024 Amount Of Oxygen 6 [facility] alth Interpretation and review of laboratory results Abnormal [facility] Source Of Oxygen Nasal Cannula (LPM) [facility] PROTIME AND APTTon aPTT Coag (Bld) [Time] 31.2 s High 20.0-30.5 [facility] Comment on above: Performed By: #### L [id number] ####Hard Tile Setter: CLARE HUGGINS ([id number])[facility] ([facility])[address] [place] [address] INR Coag (PPP) [Relative time] 1.1 {INR} Normal 0.9-1.1 [facility] Comment on above: Result Comment: Lux [...] prevent Myocardial Infarction Performed By: #### L [id number] ####Hard Tile Setter: CLARE HUGGINS ([id number])[facility] ([facility])[address] [place] [address] PT Coag (PPP) [Time] 12.3 s High 9.0-12.0 [facility] Comment on above: Performed By: #### L [id number] ####Hard Tile Setter: CALRE HUGGINS ([id number])[facility] ([facility])[address] [place] [address] SARS-COV-2, FLU A/B, AND RSV COMBOon 07-15-2024 SARS-CoV-2 (COVID-19) RNA JOAN+probe Ql (Unsp spec) Normal [facility] Comment on above: Performed By: #### L [id number] ####Hard Tile Setter: CLARE HUGGINS ([id number])[facility] ([facility])[address] [place] [address] SARS-CoV-2, Flu A/B, and RSV Comboon 07-15-2024 Interpretation and review of laboratory results Normal [facility] XR Chest Single viewon 07-15 Borderline cardiomegaly. Low lung volumes and pulmonary vascular congestion. No lobar consolidation is seen. Report Dictated on Electronically Signed By: Melvin Scott MD Electronically Signed Date/Time: 07/15/2024 12:22 PM EDT [facility] Patient Name: JAMES REYES : [...] There are degenerative changes of the spine. [facility] Melvin Scott MD - 07/15/2024 Patient [...] Electronically Signed Date/Time: 07/15/2024 12:22 PM EDT [facility] Radiology Study observation (narrative) [facility] XR Chest Single viewOrdered By: Melvin Scott on 07-15-2024 [facility] Hemoglobin A1c percentageOrd ered By: Chelle Troncoso on 07-01-2024 HbA1c (Bld) [Mass fraction] 8.6 % >5.7 [facility] POC URINALYSIS DIP STICK AUTO W/O MICRO (CRN)Ordered By: Dean Lomeli on 06-27-2024 Bilirubin, UA Negative [facility] Blood, UA Trace-Intact [facility] Glucose, UA >1,000 [facility] Ketones, UA (mg/dL) Negative Negative mg/dL [facility] Leukocytes, UA Small [facility] Nitrite, UA Negative [facility] pH, UA 5.5 [facility] Protein, UA Negative [facility] Spec Grav, UA 1.01 [facility] h Urobilinogen, UA 0.2 [facility] alth [facility] Progress Noteon 06-27-2024 Progress Note Normal [facility] Progress Note UROJET 2% LIDOCAINE [facility] [id number] LOT [id number] EXP 05/16/2026 ADMINISTERED BY Nettie Carreon LPN 6 mL in to Urethra PATIENT [employer] [facility] Normal [facility] 30on 06-04-2024 30 Normal [facility] [id number] 06-04-2024 [id number] Normal [facility] [id number] Updates DC order entered Confirmed pickup time of 4pm by transport company [employer] [facility] notified Sreekanth Reyes brother notified [facility] [phone] [facility] [phone] Transport requested 4pm filler picker in [employer]. Awaiting time confirmation. [facility] [phone] Discharge med list transmitted to return back to [facility] via [employer] per TCC request. Normal [facility] Bacteria identified Cx Nom ( Bld)on 06-04-2024 Interpretation and review of laboratory results Normal [facility] Blood Collection Sit e: Left Hand [facility] Blood Collection Sit e: Right Hand [facility] CALCIUM, IONIZEDon CALCIUM IONIZED 4.60 mg/dL Normal 4.30-5.20 [facility] Comment on above: Performed By: #### L AB54 ####Hard Tile Setter: CLARE HUGGINS ([id number])[facility] ([facility])[address] [place] [address] PH, IONIZED CALCIUM 7.40 Normal 7.31-7.46 [facility] Comment on above: Performed By: #### L AB54 ####Hard Tile Setter: CLARE HUGGINS ([id number])[facility] ([facility])[address] [place] [address] CBC (HEMOGRAM)on 06-04-2024 Erythrocyte distribution width (RBC) [Ratio] 14.9 % Normal 11.5-15.0 [facility] Comment on above: Performed By: #### L [id number] ####Hard Tile Setter: CLARE HUGGINS ([id number])[facility] ([facility])[address] [place] [address] Hematocrit (Bld) [Volume fraction] 32.4 % Low 40.0-52.0 [facility] Comment on above: Performed By: #### L [id number] ####Hard Tile Setter: CLARE HUGGINS ([id number])[facility])[address] [place] [address] Hemoglobin (Bld) [Mass/Vol] 9.9 g/dL Low 13.0-18.0 [facility] Comment on above: Performed By: #### L [id number] ####Hard Tile Setter: CLARE HUGGINS ([id number])[facility] (SB[facility])[address] MCH (RBC) [Entitic mass] 28.4 pg Normal 26.0-34.0 [facility] Comment on above: Performed By: #### L [id number] ####Hard Tile Setter: CLARE HUGGINS ([id number])[facility] (SBHLAB)[address] MCHC 30.6 % Normal 30.5-36.0 [facility] Comment on above: Performed By: #### L [id number] ####Hard Tile Setter: CLARE HUGGINS ([id number])[facility]ITALA [facility]AL[facility]ARLS[facility] (SBHLAB)[address] MCV (RBC) [Entitic vol] 92.8 fL Normal 77.0-99.0 [facility] Comment on above: Performed By: #### L [id number] ####Hard Tile Setter: CLARE HUGGINS ([id number])[facility]ITALPrieto [facility] (SBHLAB)[address] Platelet mean volume (Bld) [Entitic vol] 10.5 fL Normal 9.0-12.7 [facility] Comment on above: Performed By: #### L [id number] ####Hard Tile Setter: CLARE HUGGINS ([id number])[facility] [place] (SBHLAB)[address] Platelets (Bld) [#/Vol] 221 10*3/uL Normal 140-440 [facility] Comment on above: Performed By: #### L [id number] ####Hard Tile Setter: CLARE HUGGINS ([id number])[facility] [place] (SBHLAB)155 [place] [address] [place] RBC (Bld) [#/Vol] 3.49 10*6/uL Low 4.40-5.90 [facility] Comment on above: Performed By: #### L AB294 ####Hard Tile Setter: CLARE HUGGINS ([id number])[facility] (SBHLAB)[address] WBC (Bld) [#/Vol] 6.7 10*3/uL Normal 3.6-10.7 [facility] Comment on above: Performed By: #### L AB294 ####Hard Tile Setter: CLARE HUGGINS ([id number])[facility] [place] (SBHLAB)[address] CBC panel Auto (Bld)Ordered By: Amador Saenz on 06-04-2024 Erythrocyte distribution width (RBC) [Ratio] 14.9 % 11.5 - 15.0 % [facility] Hematocrit (Bld) [Volume fraction] 32.4 % Low 40.0 - 52.0 % [facility] Hemoglobin (Bld) [Mass/Vol] 9.9 g/dL Low 13.0 - 18.0 g/dL [facility] Interpretation and review of laboratory results Abnormal [facility] MCH (RBC) [Entitic mass] 28.4 pg 26. 0 - 34.0 pg [facility] MCHC (RBC) [Mass/Vol] 30.6 % 30.5 - 36.0 % [facility] MCV (RBC) [Entitic vol] 92.8 fL 77.0 - 99.0 fL [facility] Platelet mean volume (Bld) [Entitic vol] 10.5 fL 9.0 - 12.7 fL [facility] Platelets (Bld) [#/Vol] 221 10*3/uL 140 - 440 10*3/uL [facility] RBC (Bld) [#/Vol] 3.49 10*6/uL Low 4.40 - 5.9 0 10*6/uL [facility] WBC (Bld) [#/Vol] 6.7 10*3/uL 3.6 - 10.7 10*3/uL [facility] COMPREHENSIVE METABOLIC PANE Cricket 06-04-2024 Albumin [Mass/Vol] 3.0 g/dL Low 3.4-4.8 [facility] Comment on above: Performed By: #### L AB113, LAB17, [id number] ####Hard Tile Setter: CLARE HUGGINS ([id number])[facility] [place] (SBHLAB)[address] ALP [Catalytic activity/Vol] 63 U/L Normal 40-150 [facility] Comment on above: Performed By: #### L ABJackson, LAB17, [id number] ####Hard Tile Setter: CLARE HUGGINS ([id number])[facility] [place] (SBHLAB)[address] ALT [Catalytic activity/Vol] 15 U/L Normal <40 [facility] Comment on above: Performed By: #### L ABJackson, LAB17, [id number] ####Hard Tile Setter: CLARE HUGGINS ([id number])[facility] (SBHLAB)[address] Anion gap [Moles/Vol] 7 mmol/L Normal 3-13 [facility] Comment on above: Performed By: #### Joyce ABJackson, LAB17, UUL383 ####Hard Tile Setter: CLARE HUGGINS ([id number])[facility] (SBHLAB)[address] AST [Catalytic activity/Vol] 16 U/L Normal <34 [facility] Comment on above: Performed By: #### Joyce ABJackson, LAB17, [id number] ####Hard Tile Setter: CLARE HUGGINS ([id number])[facility] [place] (SBHLAB)[address] Bilirubin [Mass/Vol] 0.2 mg/dL Normal <1.2 [facility] Comment on above: Performed By: #### Joyce ABJackson, LAB17, [id number] ####Hard Tile Setter: CLARE HUGGINS ([id number])[facility] (SBHLAB)[address] Calcium [Mass/Vol] 8.6 mg/dL Low 8.8-10.0 [facility] Comment on above: Performed By: #### L ABJackson, LAB17, [id number] ####Hard Tile Setter: CLARE HUGGINS ([id number])[facility] (SBHLAB)[address] Chloride [Moles/Vol] 105 mmol/L Normal 98-107 [facility] Comment on above: Performed By: #### L AB113, LAB17, VQJ713 ####Hard Tile Setter: CLARE HUGGINS ([id number])[facility] (SBHLAB)[address] CO2 [Moles/Vol] 28 mmol/L Normal 23-31 [facility] Comment on above: Performed By: #### L AB113, LAB17, TNS243 ####Hard Tile Setter: CLARE HUGGINS ([id number])[facility] ([facility] Creatinine [Mass/Vol] 0.86 mg/dL Normal 0.72-1.[address] [facility] Comment on above: Performed By: #### L AB113, LAB17, NPX768 ####Hard Tile Setter: CLARE HUGGINS ([id number])[facility] ([facility] GLOMERULAR FILTRATION RATE ML/MIN/1.73 SQ M.PREDICTED >90.0 Normal >60.0 [facility] Comment on above: Result Comment: Calc ulation based on the Chronic Kidney Disease Epidemiology Collaboration (CKD-EPI) equation refit without adjustment for race Performed By: #### L AB113, LAB17, QRX440 ####Hard Tile Setter: CLARE HUGGINS ([id number])[facility] (SBHLAB)[address] Glucose [Mass/Vol] 200 mg/dL High 82-115 [facility] Comment on above: Performed By: #### L AB113, LAB17, [id number] ####Hard Tile Setter: CLARE HUGGINS ([id number])[facility] ([facility] Potassium [Moles/Vol] 4.1 mmol/L Normal 3.5-5.[address] [facility] Comment on above: Result Comment: [facility] potassium values may be up to 0.5 mmol/L lower than serum values. Performed By: #### L AB113, LAB17, UFQ954 ####Hard Tile Setter: CLARE HUGGINS ([id number])[facility] (SBHLAB)[address] Protein [Mass/Vol] 5.5 g/dL Low 6.4-8.3 [facility] Comment on above: Performed By: #### L AB113, LAB17, [id number] ####Hard Tile Setter: CLARE HUGGINS ([id number])[facility] (SBHLAB)[address] Sodium [Moles/Vol] 140 mmol/L Normal 136-145 [facility] Comment on above: Performed By: #### L AB113, LAB17, AZO588 ####Hard Tile Setter: CLARE HUGGINS ([id number])[facility] (SBHLAB)[address] Urea nitrogen [Mass/Vol] 30 mg/dL High 9-23 [facility] Comment on above: Performed By: #### L AB113, LAB17, [id number] ####Hard Tile Setter: CLARE MERCERKRISTYN ([id number])[facility] (SBHLAB)[address] [place] [address] Calcium.ionized [Moles/Vol]o n 06-04-2024 Calcium.ionized (Bld) [Moles/Vol] 4.6 mg/dL 4.30 - 5.20 mg/dL [facility] Interpretation and review of laboratory results Normal [facility] PH, IONIZED CALCIUM 7.4 7.31 - 7.46 [facility] Comprehensive metabolic 1998 panelon 06-04-2024 Albumin [Mass/Vol] 3 g/dL Low 3.4 - 4.8 g/dL [facility] ALP [Catalytic activity/Vol] 63 U/L 40 - 150 U/L [facility] ALT [Catalytic activity/Vol] 15 U/L NINF - 40 U/L [facility] Anion gap [Moles/Vol] 7 mmol/L 3 - 13 mmol/L [facility] AST [Catalytic activity/Vol] 16 U/L NINF - 34 U/L [facility] Bilirubin [Mass/Vol] 0.2 mg/dL NINF - 1.2 mg/dL [facility] Calcium [Mass/Vol] 8.6 mg/dL Low 8.8 - 10. 0 mg/dL [facility] Chloride [Moles/Vol] 105 mmol/L 98 - 10 7 mmol/L [facility] CO2 [Moles/Vol] 28 mmol/L 23 - 31 mmol/L [facility] Creatinine [Mass/Vol] 0.86 mg/dL 0.72 - 1.25 mg/dL [facility] GFR/1.73 sq M.predicted (S/P/Bld) [Vol rate/Area] - PINF [facility] Comment on above: Calculation based on the Chronic Kidney Disease Epidemiology Collaboration (CKD-EPI) equation refit without adjustment for race Glucose [Mass/Vol] 200 mg/dL High 82 - 115 mg/dL [facility] Interpretation and review of laboratory results Abnormal [facility] Potassium [Moles/Vol] 4.1 mmol/L 3.5 - 5.1 mmol/L [facility] Comment on above: Plasma potassium adriana ues may be up to 0.5 mmol/L lower than serum values. Protein [Mass/Vol] 5.5 g/dL Low 6.4 - 8.3 g/dL [facility] Sodium [Moles/Vol] 140 mmol/L 136 - 145 mmol/L [facility] Urea nitrogen [Mass/Vol] 30 mg/dL High 9 - 23 mg/dL [facility] Laboratory - Chemistry and C hemistry - challengeon 06-04-2024 Glucose [Mass/Vol] 297 mg/dL High 70 - 100 mg/dL [facility] Glucose [Mass/Vol] 121 mg/dL High 70 - 100 mg/dL [facility] Glucose [Mass/Vol] 168 mg/dL High 70 - 100 mg/dL [facility] Magnesium [Mass/Vol] 2.1 mg/dL 1.6 - 2 .6 mg/dL [facility] Laboratory - Microbiology an d Antimicrobial susceptibilityon 06-04-2024 Bacteria identified Cx Nom (Bld) No growth at 5 days [facility] MAGNESIUMon 06-04-2024 Magnesium [Mass/Vol] 2.1 mg/dL Normal 1.6-2.6 [facility] Comment on above: Result Comment: TAVO Hernandez COMMENTS:Higher values can be expected in females during menses. Performed By: #### L AB113, LAB17, [id number] ####Hard Tile Setter: CLARE HUGGINS ([id number])[facility]ITAL[facility] [place] (SBAB)[address] [place] [address] [place] Magnesium [Mass/Vol]on 06-04 Higher values can be expected in females during menses. [facility] No Panel Informationon 06-04 Interpretation and review of laboratory results Abnormal [facility] Performed by: [facility], [address] [place] [address] CLIA ID: [id number] [facility] Interpretation and review of laboratory results Abnormal [facility] Performed by: [facility], [address] [place] [address] CLIA ID: [id number] [facility] Interpretation and review of laboratory results Abnormal [facility] Performed by: [facility], [address] [place] [address] CLIA ID: [id number] [facility] Interpretation and review of laboratory results Normal [facility] Nursing Noteon 06-04-2024 Nursing Note Nurse to nurse repor t given to Sj Cruz. Normal [facility] PHOSPHORUSon 06-04-2024 Phosphate [Mass/Vol] 2.7 mg/dL Normal 2.3-4.7 [facility] Comment on above: Performed By: #### L AB113, LAB17, [id number] ####Hard Tile Setter: CLARE HUGGINS ([id number])[facility]ITAL[facility] [place] (SBHLAB)[address] [place] [address] [place] Phosphate [Moles/Vol]on 05-18 Phosphate [Mass/Vol] 2.7 mg/dL 2.3 - 4 .7 mg/dL [facility] Progress Noteon 06-04-2024 Progress Note Normal [facility] Progress Note Normal [facility] 30on 06-03-2024 30 Normal [facility] [id number] 06-03-2024 [id number] Normal [facility] CALCIUM, IONIZEDon CALCIUM IONIZED 4.70 mg/dL Normal 4.30-5.20 [facility] Comment on above: Performed By: #### L AB54 ####Hard Tile Setter: CLARE HUGGINS ([id number])[facility] [place] (SBHLAB)[address] PH, IONIZED CALCIUM 7.33 Normal 7.31-7.46 [facility] Comment on above: Performed By: #### L AB54 ####Hard Tile Setter: CLARE HUGGINS ([id number])[facility]ITALP[facility] (SBAB)[address] CBC (HEMOGRAM)on 06-03-2024 Erythrocyte distribution width (RBC) [Ratio] 15.1 % High 11.5-15.0 [facility] Comment on above: Performed By: #### L AB294 ####Hard Tile Setter: CLARE HUGGINS ([id number])[facility]ITAL[facility] [place] (SBAB)[address] [place] [address] Hematocrit (Bld) [Volume fraction] 30.6 % Low 40.0-52.0 [facility] Comment on above: Performed By: #### L AB294 ####Hard Tile Setter: CLARE HUGGINS ([id number])[facility]ITAL[facility] (SBHLAB)[address] Hemoglobin (Bld) [Mass/Vol] 9.2 g/dL Low 13.0-18.0 [facility] Comment on above: Performed By: #### L AB294 ####Hard Tile Setter: CLARE HUGGINS ([id number])[facility]ITAL[facility] (SBHLAB)[address] MCH (RBC) [Entitic mass] 28.6 pg Normal 26.0-34.0 [facility] Comment on above: Performed By: #### L AB294 ####Hard Tile Setter: CLARE HUGGINS ([id number])[place] (SBHLAB)[address] MCHC 30.1 % Low 30.5-36.0 [facility] Comment on above: Performed By: #### L AB294 ####Hard Tile Setter: CLARE HUGGINS ([id number])[place] (SBHLAB)[address] MCV (RBC) [Entitic vol] 95.0 fL Normal 77.0-99.0 [facility] Comment on above: Performed By: #### L AB294 ####Hard Tile Setter: CLARE HUGGINS ([id number])[place] (SBHLAB)[address] Platelet mean volume (Bld) [Entitic vol] 10.7 fL Normal 9.0-12.7 [facility] Comment on above: Performed By: #### L AB294 ####Hard Tile Setter: CLARE HUGGINS ([id number])[facility]ITALP[facility] [place] (SBHLAB)[address] Platelets (Bld) [#/Vol] 197 10*3/uL Normal 140-440 [facility] Comment on above: Performed By: #### L AB294 ####Hard Tile Setter: CLARE HUGGINS ([id number])[facility]ITAL[facility] [place] (SBHLAB)[address] RBC (Bld) [#/Vol] 3.22 10*6/uL Low 4.40-5.90 [facility] Comment on above: Performed By: #### L AB294 ####Hard Tile Setter: CLARE HUGGINS ([id number])[facility] [place] (SBHLAB)[address] WBC (Bld) [#/Vol] 6.1 10*3/uL Normal 3.6-10.7 [facility] Comment on above: Performed By: #### L AB294 ####Hard Tile Setter: CLARE HUGGINS ([id number])[facility]ITAL[facility] [place] (SBHLAB)[address] CBC panel Auto (Bld)on 06-03 Erythrocyte distribution width (RBC) [Ratio] 15.1 % High 11.5 - 15.0 % [facility] Hematocrit (Bld) [Volume fraction] 30.6 % Low 40.0 - 52.0 % [facility] Hemoglobin (Bld) [Mass/Vol] 9.2 g/dL Low 13.0 - 18.0 g/dL [facility] Interpretation and review of laboratory results Abnormal [facility] MCH (RBC) [Entitic mass] 28.6 pg 26. 0 - 34.0 pg [facility] MCHC (RBC) [Mass/Vol] 30.1 % Low 30.5 - 36.0 % [facility] MCV (RBC) [Entitic vol] 95 fL 77.0 - 99.0 fL [facility] Platelet mean volume (Bld) [Entitic vol] 10.7 fL 9.0 - 12.7 fL [facility] Platelets (Bld) [#/Vol] 197 10*3/uL 140 - 440 10*3/uL [facility] RBC (Bld) [#/Vol] 3.22 10*6/uL Low 4.40 - 5.9 0 10*6/uL [facility] WBC (Bld) [#/Vol] 6.1 10*3/uL 3.6 - 10.7 10*3/uL [facility] COMPREHENSIVE METABOLIC PANE Cricket 06-03-2024 Albumin [Mass/Vol] 2.7 g/dL Low 3.4-4.8 [facility] Comment on above: Performed By: #### L AB113, LAB17, NJP866 ####Hard Tile Setter: CLARE HUGGINS ([id number])[facility]ITAL[facility] [place] (SBHLAB)[address] ALP [Catalytic activity/Vol] 56 U/L Normal 40-150 [facility] Comment on above: Performed By: #### L AB113, LAB17, [id number] ####Hard Tile Setter: CLARE HUGGINS ([id number])[facility]MPrieto [place] (SBHLAB)[address] [place] [address] [place] ALT [Catalytic activity/Vol] 10 U/L Normal <40 [facility] Comment on above: Performed By: #### L AB113, LAB17, VWN813 ####Hard Tile Setter: CLARE HUGGINS ([id number])[place] (SBHLAB)[address] Anion gap [Moles/Vol] 5 mmol/L Normal 3-[address] [facility] Comment on above: Performed By: #### L AB113, LAB17, DGF331 ####Hard Tile Setter: CLARE HUGGINS ([id number])[facility]ITAL[facility] [place] (SBHLAB)[address] AST [Catalytic activity/Vol] 14 U/L Normal <34 [facility] Comment on above: Performed By: #### Joyce ABJackson, LAB17, JBK850 ####Hard Tile Setter: CLARE HUGGINS ([id number])[facility]ITALP[facility] [place] (SBHLAB)[address] Bilirubin [Mass/Vol] 0.2 mg/dL Normal <1.2 [facility] Comment on above: Performed By: #### L AB113, LAB17, LLW256 ####Hard Tile Setter: CLARE HUGGINS ([id number])[facility]ITAL[facility] [place] (SBHLAB)[address] Calcium [Mass/Vol] 8.3 mg/dL Low 8.8-10.0 [facility] Comment on above: Performed By: #### L AB113, LAB17, ZJV489 ####Hard Tile Setter: CLARE HUGGINS ([id number])[facility]ITAL[facility] [place] (SBHLAB)[address] [place] [address] [place] Chloride [Moles/Vol] 105 mmol/L Normal 98-107 [facility] Comment on above: Performed By: #### L AB113, LAB17, TBE077 ####Hard Tile Setter: CLARE HUGGINS ([id number])[facility]ITAL[facility] JARAMYNORN (SBHLAB)[address] [place] [address] [place] CO2 [Moles/Vol] 27 mmol/L Normal 23-31 [facility] Comment on above: Performed By: #### Joyce AB113, LAB17, ZFX893 ####Hard Tile Setter: CLARE HUGGINS ([id number])[facility]ITALP[facility]eto [facility] (SBHLAB)[address] Creatinine [Mass/Vol] 1.03 mg/dL Normal 0.72-1.[address] [facility] Comment on above: Performed By: #### L AB113, LAB17, NFA929 ####Hard Tile Setter: CLARE HUGGINS ([id number])[facility]ITALPrieto [facility] (SBHLAB)[address] GLOMERULAR FILTRATION RATE ML/MIN/1.73 SQ M.PREDICTED 79.6 mL/min/1.73m*2 Normal >60.0 [facility] Comment on above: Result Comment: Calc ulation based on the Chronic Kidney Disease Epidemiology Collaboration (CKD-EPI) equation refit without adjustment for race Performed By: #### L AB113, LAB17, LVP097 ####Hard Tile Setter: CLARE HUGGINS ([id number])[facility]ITALPrieto [place] (SBHLAB)[address] Glucose [Mass/Vol] 203 mg/dL High 82-115 [facility] Comment on above: Performed By: #### Joyce ABJackson, LAB17, ODO904 ####Hard Tile Setter: CLARE HUGGINS ([id number])[facility]ITALPrieto [facility] (SBHLAB)[address] [place] [address] [place] Potassium [Moles/Vol] 4.3 mmol/L Normal 3.5-5.[address] [facility] Comment on above: Result Comment: [facility] potassium values may be up to 0.5 mmol/L lower than serum values. Performed By: #### L AB113, LAB17, IYK423 ####Hard Tile Setter: CLARE HUGGINS ([id number])[facility] (SBHLAB)[address] [place] [address] [place] Protein [Mass/Vol] 5.1 g/dL Low 6.4-8.3 [facility] Comment on above: Performed By: #### L AB113, LAB17, DTN967 ####Hard Tile Setter: CLARE BELLOCER ([id number])[facility]ITALPrieto JARACARLSBAD [facility]ERN (SBHLAB)[address] Sodium [Moles/Vol] 137 mmol/L Normal 136-145 [facility] Comment on above: Performed By: #### L AB113, LAB17, CSL019 ####Hard Tile Setter: CLARE WINTERDaniloKRISTYN ([id number])[facility] (SBHLAB)[address] Urea nitrogen [Mass/Vol] 37 mg/dL High 9-23 [facility] Comment on above: Performed By: #### L AB113, LAB17, IRH431 ####Hard Tile Setter: CLARE HUGGINS ([id number])[facility] (SBHLAB)[address] Calcium.ionized [Moles/Vol]o n 06-03-2024 Calcium.ionized (Bld) [Moles/Vol] 4.7 mg/dL 4.30 - 5.20 mg/dL [facility] Interpretation and review of laboratory results Normal [facility] PH, IONIZED CALCIUM 7.33 7.31 - 7.46 [facility] Comprehensive metabolic 1998 panelon 06-03-2024 Albumin [Mass/Vol] 2.7 g/dL Low 3.4 - 4.8 g/dL [facility] ALP [Catalytic activity/Vol] 56 U/L 40 - 150 U/L [facility] ALT [Catalytic activity/Vol] 10 U/L NINF - 40 U/L [facility] Anion gap [Moles/Vol] 5 mmol/L 3 - 13 mmol/L [facility] AST [Catalytic activity/Vol] 14 U/L NINF - 34 U/L [facility] Bilirubin [Mass/Vol] 0.2 mg/dL NINF - 1.2 mg/dL [facility] Calcium [Mass/Vol] 8.3 mg/dL Low 8.8 - 10. 0 mg/dL [facility] Chloride [Moles/Vol] 105 mmol/L 98 - 10 7 mmol/L [facility] CO2 [Moles/Vol] 27 mmol/L 23 - 31 mmol/L [facility] Creatinine [Mass/Vol] 1.03 mg/dL 0.72 - 1.25 mg/dL [facility] GFR/1.73 sq M.predicted (S/P/Bld) [Vol rate/Area] 79.6 mL/min - PINF [facility] Comment on above: Calculation based on the Chronic Kidney Disease Epidemiology Collaboration (CKD-EPI) equation refit without adjustment for race Glucose [Mass/Vol] 203 mg/dL High 82 - 115 mg/dL [facility] Potassium [Moles/Vol] 4.3 mmol/L 3.5 - 5.1 mmol/L [facility] Comment on above: Plasma potassium adriana ues may be up to 0.5 mmol/L lower than serum values. Protein [Mass/Vol] 5.1 g/dL Low 6.4 - 8.3 g/dL [facility] Sodium [Moles/Vol] 137 mmol/L 136 - 145 mmol/L [facility] Urea nitrogen [Mass/Vol] 37 mg/dL High 9 - 23 mg/dL [facility] Laboratory - Chemistry and C hemistry - challengeon 06-03-2024 Glucose [Mass/Vol] 351 mg/dL High 70 - 100 mg/dL [facility] Glucose [Mass/Vol] 233 mg/dL High 70 - 100 mg/dL [facility] Glucose [Mass/Vol] 172 mg/dL High 70 - 100 mg/dL [facility] Glucose [Mass/Vol] 140 mg/dL High 70 - 100 mg/dL [facility] Magnesium [Mass/Vol] 2.1 mg/dL 1.6 - 2 .6 mg/dL [facility] MAGNESIUMon 06-03-2024 Magnesium [Mass/Vol] 2.1 mg/dL Normal 1.6-2.6 [facility] Comment on above: Result Comment: TAVO Hernandez COMMENTS:Higher values can be expected in females during menses. Performed By: #### L AB113, LAB17, EPS337 ####Hard Tile Setter: CLARE HUGGINS ([id number])[facility] ([facility])[address] [place] [address] Magnesium [Mass/Vol]on 06-03 Interpretation and review of laboratory results Normal [facility] Higher values can be expected in females during menses. [facility] No Panel Informationon 06-03 Interpretation and review of laboratory results Abnormal [facility] Performed by: [facility], [address], [facility] [address] CLIA ID: [id number] [facility] Interpretation and review of laboratory results Abnormal [facility] Performed by: [facility], [address], [facility] [address] CLIA ID: [id number] [facility] Interpretation and review of laboratory results Abnormal [facility] Performed by: [facility], [address], [facility] [address] CLIA ID: [id number] [facility] Interpretation and review of laboratory results Abnormal [facility] Performed by: [facility], [address], [facility] [address] CLIA ID: [id number] [facility] Interpretation and review of laboratory results Abnormal [facility] Nursing Noteon 06-03-2024 Nursing Note Attempted to wean patient to 2L NC. Patient sats dropped to 87%. 88-90% on 3L NC. Patient left on 4L NC at this time with continuous pulse ox showing 94%. Instructed to call out with any needs. Normal [facility] PHOSPHORUSon 06-03-2024 Phosphate [Mass/Vol] 2.0 mg/dL Low 2.3-4.7 [facility] Comment on above: Performed By: #### L [id number], [id number], [id number] ####Hard Tile Setter: CLARE HUGGINS ([id number])[facility] [place] (SBHLAB)[address] [place] [address] [place] Phosphate [Moles/Vol]on 05-18 Phosphate [Mass/Vol] 2 mg/dL Low 2.3 - 4 .7 mg/dL [facility] Progress Noteon 06-03-2024 Progress Note Normal [facility] Progress Note Normal [facility] 30on 06-02-2024 30 Normal [facility] 36on 06-02-2024 36 Normal [facility] BASIC METABOLIC PANELon - Anion gap [Moles/Vol] 6 mmol/L Normal 3-[address] [facility] Comment on above: Performed By: #### L AB15, [id number], [id number] ####Hard Tile Setter: CLARE HUGGINS ([phone])[facility] [place] (SBHLAB)[address] Calcium [Mass/Vol] 8.3 mg/dL Low 8.8-10.0 [facility] Comment on above: Performed By: #### L AB15, [id number], [id number] ####Hard Tile Setter: CLARE HUGGINS ([id number])[facility] [place] (SBHLAB)[address] Chloride [Moles/Vol] 106 mmol/L Normal 98-107 [facility] Comment on above: Performed By: #### L AB15, [id number], [id number] ####Hard Tile Setter: CLARE HUGGINS ([id number])[facility] [place] (SBHLAB)[address] CO2 [Moles/Vol] 24 mmol/L Normal 23-31 [facility] Comment on above: Performed By: #### L AB15, [id number], [id number] ####Hard Tile Setter: CLARE HUGGINS ([id number])[facility] [place] (SBHLAB)[address] Creatinine [Mass/Vol] 1.20 mg/dL Normal 0.72-1.[address] [facility] Comment on above: Performed By: #### L AB15, [id number], [id number] ####Hard Tile Setter: CLARE HUGGINS ([id number])[facility] [place] (SBHLAB)[address] GLOMERULAR FILTRATION RATE ML/MIN/1.73 SQ M.PREDICTED 66.3 mL/min/1.73m*2 Normal >60.0 [facility] Comment on above: Result Comment: Calc ulation based on the Chronic Kidney Disease Epidemiology Collaboration (CKD-EPI) equation refit without adjustment for race Performed By: #### L AB15, [id number], [id number] ####Hard Tile Setter: CLARE HUGGINS ([id number])[facility] (SBHLAB)[address] Glucose [Mass/Vol] 224 mg/dL High 82-115 [facility] Comment on above: Performed By: #### L AB15, [id number], [id number] ####Hard Tile Setter: CLARE HUGGINS ([id number])[facility] (SBHLAB)[address] Potassium [Moles/Vol] 4.6 mmol/L Normal 3.5-5.[address] [facility] Comment on above: Result Comment: [facility] potassium values may be up to 0.5 mmol/L lower than serum values. Performed By: #### L AB15, [id number], [id number] ####Hard Tile Setter: CLARE HUGGINS ([id number])[facility] (SBHLAB)[address] Sodium [Moles/Vol] 136 mmol/L Normal 136-145 [facility] Comment on above: Performed By: #### L AB15, [id number], [id number] ####Hard Tile Setter: CLARE HUGGINS ([id number])[facility] (SBHLAB)[address] Urea nitrogen [Mass/Vol] 50 mg/dL High 9-23 [facility] Comment on above: Performed By: #### L AB15, [id number], [id number] ####Hard Tile Setter: CLARE HUGGINS ([id number])[facility] (HLAB)[address] Basic metabolic 1998 panelon 06-02-2024 Anion gap [Moles/Vol] 6 mmol/L 3 - 13 mmol/L [facility] Calcium [Mass/Vol] 8.3 mg/dL Low 8.8 - 10. 0 mg/dL [facility] Chloride [Moles/Vol] 106 mmol/L 98 - 10 7 mmol/L [facility] CO2 [Moles/Vol] 24 mmol/L 23 - 31 mmol/L [facility] Creatinine [Mass/Vol] 1.2 mg/dL 0.72 - 1.25 mg/dL [facility] GFR/1.73 sq M.predicted (S/P/Bld) [Vol rate/Area] 66.3 mL/min - PINF [facility] Comment on above: Calculation based on the Chronic Kidney Disease Epidemiology Collaboration (CKD-EPI) equation refit without adjustment for race Glucose [Mass/Vol] 224 mg/dL High 82 - 115 mg/dL [facility] Interpretation and review of laboratory results Abnormal [facility] Potassium [Moles/Vol] 4.6 mmol/L 3.5 - 5.1 mmol/L [facility] Comment on above: Plasma potassium adriana ues may be up to 0.5 mmol/L lower than serum values. Sodium [Moles/Vol] 136 mmol/L 136 - 145 mmol/L [facility] Urea nitrogen [Mass/Vol] 50 mg/dL High 9 - 23 mg/dL [facility] CALCIUM, IONIZEDon CALCIUM IONIZED 4.80 mg/dL Normal 4.30-5.20 [facility] Comment on above: Performed By: #### L AB54 ####Hard Tile Setter: CLARE HUGGINS ([id number])[facility] ([facility])[address] [place] [address] PH, IONIZED CALCIUM 7.32 Normal 7.31-7.46 [facility] Comment on above: Performed By: #### L AB54 ####Hard Tile Setter: CLARE HUGGINS ([id number])[facility] (SBAB)[address] [place] [address] CBC W Auto Differential pane l (Bld)on 06-02-2024 Erythrocyte distribution width (RBC) [Ratio] 15.1 % High 11.5 - 15.0 % [facility] Hematocrit (Bld) [Volume fraction] 29.6 % Low 40.0 - 52.0 % [facility] Hemoglobin (Bld) [Mass/Vol] 8.9 g/dL Low 13.0 - 18.0 g/dL [facility] MCH (RBC) [Entitic mass] 28.6 pg 26. 0 - 34.0 pg [facility] MCHC (RBC) [Mass/Vol] 30.1 % Low 30.5 - 36.0 % [facility] MCV (RBC) [Entitic vol] 95.2 fL 77.0 - 99.0 fL [facility] Platelet mean volume (Bld) [Entitic vol] 10.4 fL 9.0 - 12.7 fL [facility] Platelets (Bld) [#/Vol] 206 10*3/uL 140 - 440 10*3/uL [facility] RBC (Bld) [#/Vol] 3.11 10*6/uL Low 4.40 - 5.9 0 10*6/uL [facility] WBC (Bld) [#/Vol] 7.5 10*3/uL 3.6 - 10.7 10*3/uL [facility] CBC WITH AUTO DIFFERENTIALon 06-02-2024 Erythrocyte distribution width (RBC) [Ratio] 15.1 % High 11.5-15.0 [facility] Comment on above: Performed By: #### L [id number], [id number] ####Hard Tile Setter: CLARE HUGGINS ([id number])[facility] ([facility])[address] [place] [address] Hematocrit (Bld) [Volume fraction] 29.6 % Low 40.0-52.0 [facility] Comment on above: Performed By: #### L [id number], [id number] ####Hard Tile Setter: CLARE HUGGINS ([phone])[facility] ([facility] [place] [address] Hemoglobin (Bld) [Mass/Vol] 8.9 g/dL Low 13.0-18.0 [facility] Comment on above: Performed By: #### L [id number], [id number] ####Hard Tile Setter: CLARE HUGGINS ([id number])[facility] ([facility] [place] [address] MCH (RBC) [Entitic mass] 28.6 pg Normal 26.0-34.0 [facility] Comment on above: Performed By: #### L [id number], [id number] ####Hard Tile Setter: CLARE HUGGINS ([id number])[facility] (SBHLAB)[address] MCHC 30.1 % Low 30.5-36.0 [facility] Comment on above: Performed By: #### L [id number], [id number] ####Hard Tile Setter: CLARE HUGGINS ([phone])[facility] [place] (SBHLAB)[address] MCV (RBC) [Entitic vol] 95.2 fL Normal 77.0-99.0 [facility] Comment on above: Performed By: #### L [id number], [id number] ####Hard Tile Setter: CLARE HUGGINS ([id number])[facility]ITAL[facility] (SBHLAB)[address] Platelet mean volume (Bld) [Entitic vol] 10.4 fL Normal 9.0-12.7 [facility] Comment on above: Performed By: #### L [id number], [id number] ####Hard Tile Setter: CLARE HUGGINS ([id number])[facility] [place] (SBHLAB)[address] Platelets (Bld) [#/Vol] 206 10*3/uL Normal 140-440 [facility] Comment on above: Performed By: #### L [id number], [id number] ####Hard Tile Setter: CLARE HUGGINS ([id number])[facility]ITAL[facility] [place] (SBHLAB)[address] [place] [address] [place] RBC (Bld) [#/Vol] 3.11 10*6/uL Low 4.40-5.90 [facility] Comment on above: Performed By: #### L [id number], [id number] ####Hard Tile Setter: CLARE HUGGINS ([id number])[facility] (SBHLAB)[address] [place] [address] [place] WBC (Bld) [#/Vol] 7.5 10*3/uL Normal 3.6-10.7 [facility] Comment on above: Performed By: #### L [id number], [id number] ####Hard Tile Setter: CLARE HUGGINS ([id number])[facility] [place] (SBHLAB)[address] [place] [address] Calcium.ionized [Moles/Vol]o n 06-02-2024 Calcium.ionized (Bld) [Moles/Vol] 4.8 mg/dL 4.30 - 5.20 mg/dL [facility] Interpretation and review of laboratory results Normal [facility] PH, IONIZED CALCIUM 7.32 7.31 - 7.46 [facility] Consulton 06-02-2024 Consult Normal [facility] Laboratory - Chemistry and C hemistry - challengeon 06-02-2024 Glucose [Mass/Vol] 195 mg/dL High 70 - 100 mg/dL [facility] Glucose [Mass/Vol] 148 mg/dL High 70 - 100 mg/dL [facility] Glucose [Mass/Vol] 186 mg/dL High 70 - 100 mg/dL [facility] Glucose [Mass/Vol] 178 mg/dL High 70 - 100 mg/dL [facility] Magnesium [Mass/Vol] 2.4 mg/dL 1.6 - 2 .6 mg/dL [facility] Laboratory - Hematology and Cell countson 06-02-2024 Band form neutrophils (Bld) [#/Vol] 0.1 10*3/uL High NINF - 0.0 10*3/uL [facility] Band form neutrophils/100 WBC (Bld) 1 % High NINF - 0 % [facility] Hypochromia Ql (Bld) Slight Abnormal (none) [facility] Lymphocytes (Bld) [#/Vol] 0.5 10*3/uL Low 1.0 - 4.3 10*3/uL [facility] Lymphocytes/100 WBC (Bld) 7 % Low 15 - 45 % [facility] Monocytes (Bld) [#/Vol] 0.2 10*3/uL 0.0 - 0.9 10*3/uL [facility] Monocytes/100 WBC (Bld) 2 % Low 5 - 13 % [facility] Neutrophils (Bld) [#/Vol] 6.8 10*3/uL 1.8 - 7.5 10*3/uL [facility] Ovalocytes LM Ql (Bld) Moderate Abnormal (none) [facility] Poikilocytosis LM Ql (Bld) Slight Abnormal (none) [facility] Polychromasia LM Ql (Bld) Slight Abnormal (none) [facility] RBC morphology finding Nom (Bld) abnormal [facility] Segmented neutrophils/100 WBC (Bld) 90 % High 38 - 82 % [facility] MAGNESIUMon 06-02-2024 Magnesium [Mass/Vol] 2.4 mg/dL Normal 1.6-2.6 [facility] Comment on above: Result Comment: TAVO R COMMENTS:Higher values can be expected in females during menses. Performed By: #### L AB15, [id number], [id number] ####Hard Tile Setter: CLARE HUGGINS ([id number])[facility]ITALP[facility] ([facility] MANUAL DIFFERENTIAL (CELLAVI JARROD)on 06-02-2024 BAND NEUTROPHILS TOTAL PER COUNTED LEUKOCYTES BY MANUAL COUNT 1 Normal [facility] Comment on above: Performed By: #### L [id number], [id number] ####Hard Tile Setter: CLARE HUGGINS ([id number])[facility]ITAL[facility] ([facility])[address] BANDS (10*3/UL) IN BLOOD-CELLAVISION 0.1 10*3/uL High <=0.0 [facility] Comment on above: Performed By: #### L [id number], [id number] ####Hard Tile Setter: CLARE HUGGINS ([id number])[facility]ITAL[facility] [place] (SBAB)[address] [place] [address] [place] BASOPHILS TOTAL PER COUNTED LEUKOCYTES BY MANUAL COUNT Normal [facility] Comment on above: Performed By: #### L [id number], [id number] ####Hard Tile Setter: CLARE HUGGINS ([id number])[facility] [place] ([facility])[address] [place] [address] [place] BLASTS TOTAL PER COUNTED LEUKOCYTES BY MANUAL COUNT Normal [facility] Comment on above: Performed By: #### L [id number], [id number] ####Hard Tile Setter: CLARE HUGGINS ([id number])[facility] [place] (SBHLAB)[address] EOSINOPHILS TOTAL PER COUNTED LEUKOCYTES BY MANUAL COUNT [facility] Comment on above: Performed By: #### L [id number], [id number] ####Hard Tile Setter: CLARE WINTERVERN ([id number])[facility] [place] (SBHLAB)[address] HYPOCHROMIA (PRESENCE) IN BLOOD BY LIGHT MICROSCOPY Slight Abnormal (none) [facility] Comment on above: Performed By: #### L [id number], [id number] ####Hard Tile Setter: CLARE WINTERVERN ([id number])[facility] [place] (SBHLAB)[address] [place] [address] [place] LYMPHOCYTES (10*3/UL) IN BLOOD-CELLAVISION 0.5 10*3/uL Low 1.0-4.3 [facility] Comment on above: Performed By: #### L [id number], [id number] ####Hard Tile Setter: CLARE HUGGINS ([id number])[facility] [place] (SBHLAB)[address] [place] [address] [place] LYMPHOCYTES TOTAL PER COUNTED LEUKOCYTES BY MANUAL COUNT 7 Normal [facility] Comment on above: Performed By: #### L [id number], [id number] ####Hard Tile Setter: CLARE HUGGINS ([id number])[facility] [place] (SBHLAB)[address] [place] [address] [place] LYMPHOCYTES/100 LEUKOCYTES IN BLOOD-CELLAVISION 7 % Low 15-45 [facility] Comment on above: Performed By: #### L [id number], [id number] ####Hard Tile Setter: CLARE HUGGINS ([id number])[facility] [place] (SBHLAB)[address] [place] [address] [place] METAMYELOCYTES TOTAL PER COUNTED LEUKOCYTES BY MANUAL COUNT Normal [facility] Comment on above: Performed By: #### L [id number], [id number] ####Hard Tile Setter: CLARE HUGGINS ([id number])[facility] [place] (SBHLAB)[address] [place] [address] [place] MONOCYTES (10*3/UL) IN BLOOD-CELLAVISION 0.2 10*3/uL Normal 0.0-0.9 [facility] Comment on above: Performed By: #### L [id number], [id number] ####Hard Tile Setter: CLARE HUGGINS ([id number])[facility] [place] (SBHLAB)[address] [place] [address] [place] MONOCYTES TOTAL PER COUNTED LEUKOCYTES BY MANUAL COUNT 2 Normal [facility] Comment on above: Performed By: #### L [id number], [id number] ####Hard Tile Setter: CLARE HUGGINS ([id number])[facility] [place] (SBHLAB)[address] [place] [address] [place] MONOCYTES/100 LEUKOCYTES IN BLOOD-ROGER 2 % Low 5-13 [facility] Comment on above: Performed By: #### L [id number], [id number] ####Hard Tile Setter: CLARE HUGGINS ([id number])[facility] [place] (SBHLAB)[address] [place] [address] [place] MYELOCYTES COUNTED BY MANUAL COUNT [facility] Comment on above: Performed By: #### L [id number], [id number] ####Hard Tile Setter: CLARE HUGGINS ([id number])[facility] [place] (SBHLAB)[address] [place] [address] [place] NEUTROPHILS BAND FORM/100 LEUKOCYTES IN BLOOD-CELLAVISI 1 % High <=0 [facility] Comment on above: Performed By: #### L [id number], [id number] ####Hard Tile Setter: CLARE HUGGINS ([id number])[facility] [place] (SBHLAB)[address] [place] [address] [place] NEUTROPHILS TOTAL PER COUNTED LEUKOCYTES BY MANUAL COUNT 90 Normal [facility] Comment on above: Performed By: #### L [id number], [id number] ####Hard Tile Setter: CLARE HUGGINS ([id number])[facility] (SBHLAB)[address] [place] [address] [place] OVALOCYTES PRESENCE IN BLOOD BY LIGHT MICROSCOPY Moderate Abnormal (none) [facility] Comment on above: Performed By: #### L [id number], [id number] ####Hard Tile Setter: CLARE HUGGINS ([id number])[facility]ERN (SBHLAB)[address] [place] [address] [place] POIKILOCYTOSIS (PRESENCE) IN BLOOD BY LIGHT MICROSCOPY Slight Abnormal (none) [facility] Comment on above: Performed By: #### L [id number], [id number] ####Hard Tile Setter: CLARE HUGGINS ([id number])[facility] (SBHLAB)[address] [place] [address] [place] POLYCHROMASIA IN BLOOD BY LIGHT MICROSCOPY Slight Abnormal (none) [facility] Comment on above: Performed By: #### L [id number], [id number] ####Hard Tile Setter: CLARE HUGGINS ([id number])[facility] (SBHLAB)[address] [place] [address] [place] PROMYELOCYTES TOTAL PER COUNTED LEUKOCYTES BY MANUAL COUNT Normal [facility] Comment on above: Performed By: #### L [id number], [id number] ####Hard Tile Setter: CLARE HUGGINS ([id number])[facility] (SBHLAB)[address] [place] [address] [place] RBC MORPHOLOGY IN BLOOD abnormal Normal [facility] Comment on above: Performed By: #### L [id number], [id number] ####Hard Tile Setter: CLARE HUGGINS ([id number])[facility] (SB[facility])[address] [place] [address] [place] SEGMENTED NEUTROPHILS (10*3/UL) IN BLOOD-CELLAVISION 6.8 10*3/uL Normal 1.8-7.5 [facility] Comment on above: Performed By: #### L [id number], [id number] ####Hard Tile Setter: CLARE HUGGINS ([id number])[facility]ITAL[facility] [place] (SBHLAB)[address] SEGMENTED NEUTROPHILS/100 LEUKOCYTES-CE 90 % High 38-82 [facility] Comment on above: Performed By: #### L [id number], [id number] ####Hard Tile Setter: CLARE HUGGINS ([id number])[facility] [place] (SBHLAB)[address] UNCLASSIFIED CELLS TOTAL PER COUNTED LEUKOCYTES BY MANUAL COUNT Normal [facility] Comment on above: Performed By: #### L [id number], [id number] ####Hard Tile Setter: CLARE HUGGINS ([id number])[facility]ITAL[facility] [place] (SBHLAB)[address] [place] [address] VARIANT LYMPHOCYTES TOTAL PER COUNTED LEUKOCYTES BY MANUAL COUNT Normal [facility] Comment on above: Performed By: #### L [id number], [id number] ####Hard Tile Setter: CLARE HUGGINS ([id number])[facility]ITAL[facility] CENTERAlysa (SBHLAB)[address] [place] [address] Magnesium [Mass/Vol]on 06-02 Higher values can be expected in females during menses. [facility] No Panel Informationon 06-02 Interpretation and review of laboratory results Abnormal [facility]formed by: [facility], [address] [place] [address] CLIA ID: [id number] [facility] Interpretation and review of laboratory results Abnormal [facility] Performed by: [facility], [address] [place] [address] CLIA ID: [id number] [facility] Interpretation and review of laboratory results Abnormal [facility] Performed by: [facility], [address] [place] [address] CLIA ID: [id number] [facility] Interpretation and review of laboratory results Abnormal [facility] Performed by: [facility], [address] [place] [id number] CLIA ID: [id number] [facility] Atypical Lymphocytes Manual [facility] Bands Manual 1 [facility] Basophils Manual [facility] alth Blasts Manual [facility] Eosinophils Manual [facility] Interpretation and review of laboratory results Abnormal [facility] Lymphocytes Manual 7 [facility] Metamyelocytes Manual [facility] Monocytes Manual 2 [facility]th Myelocytes Manual [facility] Neutrophils Manual 90 [facility] Promyelocytes Manual [facility] Unclassified Cells, Manual [facility] Interpretation and review of laboratory results Normal [facility] PHOSPHORUSon 06-02-2024 Phosphate [Mass/Vol] 2.5 mg/dL Normal 2.3-4.7 [facility] Comment on above: Performed By: #### L AB15, [id number], [id number] ####Hard Tile Setter: CLARE HUGGINS ([id number])[facility] ([facility])[address] [place] [address] [place] Phosphate [Moles/Vol]on 05-18 Phosphate [Mass/Vol] 2.5 mg/dL 2.3 - 4 .7 mg/dL [facility] Progress Noteon 06-02-2024 Progress Note Normal [facility] Progress Note Normal [facility] Progress Note Pt transferred out t o usacs service from icu. Normal [facility] 30on 06-01-2024 30 Normal [facility] BASIC METABOLIC PANELon 05-18 Anion gap [Moles/Vol] 6 mmol/L Normal 3-[address] [facility] Comment on above: Performed By: #### L AB103, [id number], LAB15 ####Hard Tile Setter: CLARE HUGGINS ([id number])[facility] ([facility] [place] [address] [place] Calcium [Mass/Vol] 8.5 mg/dL Low 8.8-10.0 [facility] Comment on above: Performed By: #### L AB103, [id number], LAB15 ####Hard Tile Setter: CLARE HUGGINS ([id number])[facility] ([facility] [place] [address] [place] Chloride [Moles/Vol] 105 mmol/L Normal 98-107 [facility] Comment on above: Performed By: #### L AB103, [id number], LAB15 ####Hard Tile Setter: CLARE HUGGINS ([id number])[facility] (SBHLAB)[address] CO2 [Moles/Vol] 22 mmol/L Low 23-31 [facility] Comment on above: Performed By: #### L AB103, [id number], LAB15 ####Hard Tile Setter: CLARE HUGGINS ([id number])[facility] ([facility] Creatinine [Mass/Vol] 1.43 mg/dL High 0.72-1.[address] [facility] Comment on above: Performed By: #### L AB103, [id number], LAB15 ####Hard Tile Setter: CLARE HUGGINS ([id number])[facility] ([facility])[address] GLOMERULAR FILTRATION RATE ML/MIN/1.73 SQ M.PREDICTED 53.7 mL/min/1.73m*2 Low >60.0 [facility] Comment on above: Result Comment: Calc ulation based on the Chronic Kidney Disease Epidemiology Collaboration (CKD-EPI) equation refit without adjustment for race Performed By: #### L AB103, [id number], LAB15 ####Hard Tile Setter: CLARE HUGGINS ([id number])[facility] ([facility])[address] Glucose [Mass/Vol] 253 mg/dL High 82-115 [facility] Comment on above: Performed By: #### L AB103, [id number], LAB15 ####Hard Tile Setter: CLARE HUGGINS ([id number])[facility] ([facility])155 50 [address] Potassium [Moles/Vol] 4.8 mmol/L Normal 3.5-5.[address] [facility] Comment on above: Result Comment: [facility] potassium values may be up to 0.5 mmol/L lower than serum values. Performed By: #### L AB103, [id number], LAB15 ####Hard Tile Setter: CLARE JOSELUIS ([id number])[facility] (SBHLAB)[address] Sodium [Moles/Vol] 133 mmol/L Low 136-145 [facility] Comment on above: Performed By: #### L AB103, [id number], LAB15 ####Hard Tile Setter: CLARE JOSELUIS ([id number])[facility] (SBHLAB)[address] Urea nitrogen [Mass/Vol] 62 mg/dL High 9-23 [facility] Comment on above: Performed By: #### L AB103, [id number], LAB15 ####Hard Tile Setter: CLARE JOSELUIS ([id number])[facility] (SBHLAB)[address] Basic metabolic 1998 panelon 06-01-2024 Anion gap [Moles/Vol] 6 mmol/L 3 - 13 mmol/L [facility] Calcium [Mass/Vol] 8.5 mg/dL Low 8.8 - 10. 0 mg/dL [facility] Chloride [Moles/Vol] 105 mmol/L 98 - 10 7 mmol/L [facility] CO2 [Moles/Vol] 22 mmol/L Low 23 - 31 mmol/L [facility] Creatinine [Mass/Vol] 1.43 mg/dL High 0.72 - 1.25 mg/dL [facility] GFR/1.73 sq M.predicted (S/P/Bld) [Vol rate/Area] 53.7 mL/min Low - PINF [facility] Comment on above: Calculation based on the Chronic Kidney Disease Epidemiology Collaboration (CKD-EPI) equation refit without adjustment for race Glucose [Mass/Vol] 253 mg/dL High 82 - 115 mg/dL [facility] Interpretation and review of laboratory results Abnormal [facility] Potassium [Moles/Vol] 4.8 mmol/L 3.5 - 5.1 mmol/L [facility] Comment on above: Plasma potassium adriana ues may be up to 0.5 mmol/L lower than serum values. Sodium [Moles/Vol] 133 mmol/L Low 136 - 145 mmol/L [facility] Urea nitrogen [Mass/Vol] 62 mg/dL High 9 - 23 mg/dL [facility] CALCIUM, IONIZEDon CALCIUM IONIZED 4.60 mg/dL Normal 4.30-5.20 [facility] Comment on above: Performed By: #### L AB54 ####Hard Tile Setter: CLARE HUGGINS ([id number])[facility] (SBHLAB)[address] [place] [address] PH, IONIZED CALCIUM 7.31 Normal 7.31-7.46 [facility] Comment on above: Performed By: #### L AB54 ####Hard Tile Setter: CLARE HUGGINS ([id number])[facility] (SBHLAB)[address] [place] [address] CBC W Auto Differential pane l (Bld)Ordered By: Nancy Kam on 06-01-2024 Basophils (Bld) [#/Vol] 0 10*3/uL 0.0 - 0.2 10*3/uL [email or web address] Basophils/100 WBC (Bld) 0.1 % 0.0 - 2.0 % [facility] Eosinophils (Bld) [#/Vol] 0 10*3/uL 0.0 - 0.5 10*3/uL [facility] Eosinophils/100 WBC (Bld) 0 % 0.0 - 6.0 % [facility] Erythrocyte distribution width (RBC) [Ratio] 15.4 % High 11.5 - 15.0 % [facility] Hematocrit (Bld) [Volume fraction] 30.7 % Low 40.0 - 52.0 % [email or web address] Hemoglobin (Bld) [Mass/Vol] 9.2 g/dL Low 13.0 - 18.0 g/dL [facility] Immature granulocytes (Bld) [#/Vol] 0.1 10*3/uL High NINF - 0.1 10*3/uL [email or web address] Immature granulocytes/100 WBC (Bld) 0.7 % 0.0 - 2.0 % [facility] Interpretation and review of laboratory results Abnormal [facility] Lymphocytes (Bld) [#/Vol] 0.6 10*3/uL Low 1.0 - 4.3 10*3/uL [facility] Lymphocytes/100 WBC (Bld) 6.9 % Low 15.0 - 45.0 % [facility] MCH (RBC) [Entitic mass] 29.1 pg 26. 0 - 34.0 pg [facility] MCHC (RBC) [Mass/Vol] 30 % Low 30.5 - 36.0 % [facility] MCV (RBC) [Entitic vol] 97.2 fL 77.0 - 99.0 fL [facility] Monocytes (Bld) [#/Vol] 0.6 10*3/uL 0.0 - 0.9 10*3/uL [facility] Monocytes/100 WBC (Bld) 6.4 % 5.0 - 13.0 % [facility] Neutrophils (Bld) [#/Vol] 7.8 10*3/uL High 1.8 - 7.5 10*3/uL [facility] Neutrophils/100 WBC (Bld) 85.9 % High 38.0 - 82.0 % [facility] Nucleated RBC/100 WBC (Bld) [Ratio] 0 % [facility] Platelet mean volume (Bld) [Entitic vol] 10.8 fL 9.0 - 12.7 fL [facility] Platelets (Bld) [#/Vol] 205 10*3/uL 140 - 440 10*3/uL [facility] RBC (Bld) [#/Vol] 3.16 10*6/uL Low 4.40 - 5.9 0 10*6/uL [facility] WBC (Bld) [#/Vol] 9.1 10*3/uL 3.6 - 10.7 10*3/uL [facility] CBC WITH AUTO DIFFERENTIALon 06-01-2024 Basophils (Bld) [#/Vol] 0.0 10*3/uL Normal 0.0-0.2 [facility] Comment on above: Performed By: #### L [id number] ####Hard Tile Setter: CLARE HUGGINS ([id number])[facility] (SBAB)[address] [place] [address] Basophils/100 WBC (Bld) 0.1 % Normal 0.0-2.0 [facility] Comment on above: Performed By: #### L [id number] ####Hard Tile Setter: CLARE WINTERDaniloKRISTYN ([id number])[facility] Eosinophils (Bld) [#/Vol] 0.0 10*3/uL Normal 0.0-0.5 [facility] Comment on above: Performed By: #### L [id number] ####Hard Tile Setter: CLARE MERCERKRISTYN ([id number])[facility] Eosinophils/100 WBC (Bld) 0.0 % Normal 0.0-6.0 [facility] Comment on above: Performed By: #### L [id number] ####Hard Tile Setter: CLARE JOSELUIS ([id number])[facility] ([facility])[address] [place] [address] Erythrocyte distribution width (RBC) [Ratio] 15.4 % High 11.5-15.0 [facility] Comment on above: Performed By: #### L [id number] ####Hard Tile Setter: CLARE MERCERKRISTYN ([id number])[facility] ([facility])[address] Hematocrit (Bld) [Volume fraction] 30.7 % Low 40.0-52.0 [facility] Comment on above: Performed By: #### L [id number] ####Hard Tile Setter: CLARE HUGGINS ([id number])[facility] Hemoglobin (Bld) [Mass/Vol] 9.2 g/dL Low 13.0-18.0 [facility] Comment on above: Performed By: #### L [id number] ####Hard Tile Setter: CLARE MERCERKRISTYN ([id number])[facility] ([facility] IMMATURE GRANS % 0.7 % Normal 0.0-2.0 [facility] Comment on above: Performed By: #### L [id number] ####Hard Tile Setter: CLARECLAUDIO WINTERDaniloKRISTYN ([id number])[facility]ITAL[facility]eto [facility] (SBHLAB)[address] IMMATURE GRANS ABSOLUTE 0.1 10*3/uL High <0.1 [facility] Comment on above: Performed By: #### L [id number] ####Hard Tile Setter: CLARE JOSELUIS ([id number])[facility]ITAL[facility] [place] ([facility] Lymphocytes (Bld) [#/Vol] 0.6 10*3/uL Low 1.0-4.3 [facility] Comment on above: Performed By: #### L [id number] ####Hard Tile Setter: CLARE HUGGINS ([id number])[facility] ([facility])[address] [place] [address] Lymphocytes/100 WBC (Bld) 6.9 % Low 15.0-45.0 [facility] Comment on above: Performed By: #### L [id number] ####Hard Tile Setter: CLARE JOSELUIS ([id number])[facility]ITAL[facility] [place] ([facility])[address] [place] [address] MCH (RBC) [Entitic mass] 29.1 pg Normal 26.0-34.0 [facility] Comment on above: Performed By: #### L [id number] ####Hard Tile Setter: CLARE JOSELUIS ([id number])[facility] ([facility])[address] [place] [address] MCHC 30.0 % Low 30.5-36.0 [facility] Comment on above: Performed By: #### L [id number] ####Hard Tile Setter: CLARE MERCERKRISTYN ([id number])[facility] ([facility])[address] [place] [address] MCV (RBC) [Entitic vol] 97.2 fL Normal 77.0-99.0 [facility] Comment on above: Performed By: #### L [id number] ####Hard Tile Setter: CLARECLAUDIO HUGGINS ([id number])[facility] (SBHLAB)[address] Monocytes (Bld) [#/Vol] 0.6 10*3/uL Normal 0.0-0.9 [facility] Comment on above: Performed By: #### L [id number] ####Hard Tile Setter: CLARE JOSELUIS ([id number])[facility] [place] (SBHLAB)[address] Monocytes/100 WBC (Bld) 6.4 % Normal 5.0-13.0 [facility] Comment on above: Performed By: #### L [id number] ####Hard Tile Setter: CLARE HUGGINS ([id number])[facility] [place] (SBHLAB)[address] NEUTROPHILS ABSOLUTE 7.8 10*3/uL High 1.8-7.5 [facility] Comment on above: Performed By: #### L [id number] ####Hard Tile Setter: CLARE JOSELUIS ([id number])[facility] [place] (SBHLAB)[address] Neutrophils/100 WBC (Bld) 85.9 % High 38.0-82.0 [facility] Comment on above: Performed By: #### L [id number] ####Hard Tile Setter: CLARE WINTERDaniloKRISTYN ([id number])[facility] [place] (SBHLAB)[address] NRBC 0.0 /100 WBCs Normal 0.0-2.0 [facility] Comment on above: Performed By: #### L [id number] ####Hard Tile Setter: CLARE JOSELUIS ([id number])[facility] [place] (SBHLAB)[address] Platelet mean volume (Bld) [Entitic vol] 10.8 fL Normal 9.0-12.7 [facility] Comment on above: Performed By: #### L [id number] ####Hard Tile Setter: CLARE WINTERDaniloKRISTYN ([id number])[facility]ITAL[facility] [place] (SBHLAB)[address] Platelets (Bld) [#/Vol] 205 10*3/uL Normal 140-440 [facility] Comment on above: Performed By: #### L [id number] ####Hard Tile Setter: CLARE BELLOCER ([id number])[facility]ITAL[facility] (SBHLAB)[address] RBC (Bld) [#/Vol] 3.16 10*6/uL Low 4.40-5.90 [facility] Comment on above: Performed By: #### L [id number] ####Hard Tile Setter: CLARE MERCERKRISTYN ([id number])[facility]ITAL[facility] [place] (SBHLAB)[address] [place] [address] WBC (Bld) [#/Vol] 9.1 10*3/uL Normal 3.6-10.7 [facility] Comment on above: Performed By: #### L [id number] ####Hard Tile Setter: CLARE MERCERKRISTYN ([id number])[facility]ITAL[facility] (SBHLAB)[address] [place] [address] Calcium.ionized [Moles/Vol]o n 06-01-2024 Calcium.ionized (Bld) [Moles/Vol] 4.6 mg/dL 4.30 - 5.20 mg/dL [facility] Interpretation and review of laboratory results Normal [facility] PH, IONIZED CALCIUM 7.31 7.31 - 7.46 [facility] Laboratory - Chemistry and C hemistry - challengeon 06-01-2024 Glucose [Mass/Vol] 271 mg/dL High 70 - 100 mg/dL [facility] Glucose [Mass/Vol] 281 mg/dL High 70 - 100 mg/dL [facility] Glucose [Mass/Vol] 257 mg/dL High 70 - 100 mg/dL [facility] Glucose [Mass/Vol] 251 mg/dL High 70 - 100 mg/dL [facility] Magnesium [Mass/Vol] 2.6 mg/dL 1.6 - 2 .6 mg/dL [facility] MAGNESIUMon 06-01-2024 Magnesium [Mass/Vol] 2.6 mg/dL Normal 1.6-2.6 [facility] Comment on above: Result Comment: TAVO Hernandez COMMENTS:Higher values can be expected in females during menses. Performed By: #### L AB103, ELQ435, LAB15 ####Hard Tile Setter: CLARE HUGGINS ([id number])[facility]ITAL[facility] [place] (SBHLAB)[address] Magnesium [Mass/Vol]on 06-01 Higher values can be expected in females during menses. [facility] No Panel Informationon 06-01 Interpretation and review of laboratory results Abnormal [facility] Performed by: [facility], [address] [place] [id number] CLIA ID: [id number] [facility] Interpretation and review of laboratory results Abnormal [facility] Performed by: [facility], [address] [place] [address] CLIA ID: [id number] [facility] Interpretation and review of laboratory results Abnormal [facility] Performed by: [facility], [address] [place] [address] CLIA ID: [id number] [facility] Interpretation and review of laboratory results Abnormal [facility] Performed by: [facility], [address] [place] [address] CLIA ID: [id number] [facility] Interpretation and review of laboratory results Normal [facility] PHOSPHORUSon 06-01-2024 Phosphate [Mass/Vol] 4.1 mg/dL Normal 2.3-4.7 [facility] Comment on above: Performed By: #### L AB103, HIQ680, LAB15 ####Hard Tile Setter: CLARE HUGGINS ([id number])[facility]ITAL[facility] [place] (SBHLAB)[address] [place] [address] [place] Phosphate [Moles/Vol]on 05-18 Phosphate [Mass/Vol] 4.1 mg/dL 2.3 - 4 .7 mg/dL [facility] Progress Noteon 06-01-2024 Progress Note Normal [facility] Progress Note Normal [facility] 30on 05-31-2024 30 Normal [facility] [id number] 05-31-2024 [id number] Normal [facility] BASIC METABOLIC PANELon 05-18 Anion gap [Moles/Vol] 8 mmol/L Normal 3-[address] [facility] Comment on above: Performed By: #### L AB113, LAB15, BYS774, LAB20, [id number] ####Hard Tile Setter: CLARE HUGGINS ([id number])[facility] (SBHLAB)[address] Calcium [Mass/Vol] 8.1 mg/dL Low 8.8-10.0 [facility] Comment on above: Performed By: #### L AB113, LAB15, EBE613, LAB20, [id number] ####Hard Tile Setter: CLARE HUGGINS ([id number])[facility] ([facility])[address] Chloride [Moles/Vol] 111 mmol/L High 98-107 [facility] Comment on above: Performed By: #### L AB113, LAB15, MIA612, LAB20, [id number] ####Hard Tile Setter: CLARE HUGGINS ([id number])[facility] (SBHLAB)[address] [place] [address] [place] CO2 [Moles/Vol] 20 mmol/L Low 23-31 [facility] Comment on above: Performed By: #### L AB113, LAB15, ALU649, LAB20, [id number] ####Hard Tile Setter: CLARE HUGGINS ([id number])[facility] (SBHLAB)[address] [place] [address] [place] Creatinine [Mass/Vol] 1.58 mg/dL High 0.72-1.[address] [facility] Comment on above: Performed By: #### L AB113, LAB15, DUP785, LAB20, [id number] ####Hard Tile Setter: CLARE HUGGINS ([id number])[facility] (SBHLAB)[address] [place] [address] [place] GLOMERULAR FILTRATION RATE ML/MIN/1.73 SQ M.PREDICTED 47.6 mL/min/1.73m*2 Low >60.0 [facility] Comment on above: Result Comment: Calc ulation based on the Chronic Kidney Disease Epidemiology Collaboration (CKD-EPI) equation refit without adjustment for race Performed By: #### L AB113, LAB15, XFC782, LAB20, [id number] ####Hard Tile Setter: CLARE JOSELUIS ([id number])[facility] (SBHLAB)[address] [place] [address] [place] Glucose [Mass/Vol] 194 mg/dL High 82-115 [facility] Comment on above: Performed By: #### L AB113, LAB15, CPK848, LAB20, [id number] ####Hard Tile Setter: CLARE MERCERKRISTYN ([id number])[facility] (SBHLAB)[address] Potassium [Moles/Vol] 4.8 mmol/L Normal 3.5-5.[address] [facility] Comment on above: Result Comment: [facility] potassium values may be up to 0.5 mmol/L lower than serum values. Performed By: #### L AB113, LAB15, IWV658, LAB20, [id number] ####Hard Tile Setter: CLARE MERCERKRISTYN ([id number])[facility] (SBHLAB)[address] [place] [address] [place] Sodium [Moles/Vol] 139 mmol/L Normal 136-145 [facility] Comment on above: Performed By: #### L AB113, LAB15, MKP637, LAB20, [id number] ####Hard Tile Setter: CLARE WINTERVERN ([id number])[facility] (HLAB)[address] [place] [address] [place] Urea nitrogen [Mass/Vol] 58 mg/dL High 9-23 [facility] Comment on above: Performed By: #### L AB113, LAB15, OUX832, LAB20, [id number] ####Hard Tile Setter: CLARE HUGGINS ([id number])[facility] (SBHLAB)[address] Basic metabolic 1998 panelon 05-31-2024 Anion gap [Moles/Vol] 8 mmol/L 3 - 13 mmol/L [facility] Calcium [Mass/Vol] 8.1 mg/dL Low 8.8 - 10. 0 mg/dL [facility] Chloride [Moles/Vol] 111 mmol/L High 98 - 10 7 mmol/L [facility] CO2 [Moles/Vol] 20 mmol/L Low 23 - 31 mmol/L [facility] Creatinine [Mass/Vol] 1.58 mg/dL High 0.72 - 1.25 mg/dL [facility] GFR/1.73 sq M.predicted (S/P/Bld) [Vol rate/Area] 47.6 mL/min Low - PINF [facility] Comment on above: Calculation based on the Chronic Kidney Disease Epidemiology Collaboration (CKD-EPI) equation refit without adjustment for race Glucose [Mass/Vol] 194 mg/dL High 82 - 115 mg/dL [facility] Potassium [Moles/Vol] 4.8 mmol/L 3.5 - 5.1 mmol/L [facility] Comment on above: Plasma potassium adriana ues may be up to 0.5 mmol/L lower than serum values. Sodium [Moles/Vol] 139 mmol/L 136 - 145 mmol/L [facility] Urea nitrogen [Mass/Vol] 58 mg/dL High 9 - 23 mg/dL [facility] CALCIUM, IONIZEDon CALCIUM IONIZED 4.10 mg/dL Low 4.30-5.20 [facility] Comment on above: Performed By: #### L AB54 ####Hard Tile Setter: CLARE HUGGINS ([id number])[facility] (SBHLAB)[address] PH, IONIZED CALCIUM 7.37 Normal 7.31-7.46 [facility] Comment on above: Performed By: #### L AB54 ####Hard Tile Setter: CLARE HUGGINS ([id number])[facility] (SBHLAB)[address] CBC W Auto Differential pane l (Bld)Ordered By: Verónica Kitchen on 05-31-2024 Erythrocyte distribution width (RBC) [Ratio] 15.3 % High 11.5 - 15.0 % [facility] Hematocrit (Bld) [Volume fraction] 33.8 % Low 40.0 - 52.0 % [facility] Hemoglobin (Bld) [Mass/Vol] 9.8 g/dL Low 13.0 - 18.0 g/dL [facility] MCH (RBC) [Entitic mass] 28.7 pg 26. 0 - 34.0 pg [facility] MCHC (RBC) [Mass/Vol] 29 % Low 30.5 - 36.0 % [facility] MCV (RBC) [Entitic vol] 99.1 fL High 77.0 - 99.0 fL [facility] Platelet mean volume (Bld) [Entitic vol] 10.8 fL 9.0 - 12.7 fL [facility] Platelets (Bld) [#/Vol] 194 10*3/uL 140 - 440 10*3/uL [facility] RBC (Bld) [#/Vol] 3.41 10*6/uL Low 4.40 - 5.9 0 10*6/uL [facility] WBC (Bld) [#/Vol] 11.4 10*3/uL High 3.6 - 10.7 10*3/uL [facility] CBC WITH AUTO DIFFERENTIALon 05-31-2024 Erythrocyte distribution width (RBC) [Ratio] 15.3 % High 11.5-15.0 [facility] Comment on above: Performed By: #### L [id number], [id number] ####Hard Tile Setter: CLARE HUGGINS ([id number])[facility] (SBHLAB)[address] Hematocrit (Bld) [Volume fraction] 33.8 % Low 40.0-52.0 [facility] Comment on above: Performed By: #### L [id number], [id number] ####Hard Tile Setter: CLARE HUGGINS ([id number])[facility] (SBHLAB)[address] Hemoglobin (Bld) [Mass/Vol] 9.8 g/dL Low 13.0-18.0 [facility] Comment on above: Performed By: #### L [id number], [id number] ####Hard Tile Setter: CLARE HUGGINS ([id number])[facility]ITAL[facility] (SBHLAB)[address] MCH (RBC) [Entitic mass] 28.7 pg Normal 26.0-34.0 [facility] Comment on above: Performed By: #### L [id number], [id number] ####Hard Tile Setter: CLARE HUGGINS ([id number])[facility] (SBAB)[address] MCHC 29.0 % Low 30.5-36.0 [facility] Comment on above: Performed By: #### L [id number], [id number] ####Hard Tile Setter: CLARE HUGGINS ([id number])[facility] (SBHLAB)[address] MCV (RBC) [Entitic vol] 99.1 fL High 77.0-99.0 [facility] Comment on above: Performed By: #### L [id number], [id number] ####Hard Tile Setter: CLARE HUGGINS ([id number])[facility] (SBHLAB)[address] Platelet mean volume (Bld) [Entitic vol] 10.8 fL Normal 9.0-12.7 [facility] Comment on above: Performed By: #### L [id number], [id number] ####Hard Tile Setter: CLRAE HUGGINS ([id number])[facility] (SBHLAB)[address] [place] [address] [place] Platelets (Bld) [#/Vol] 194 10*3/uL Normal 140-440 [facility] Comment on above: Performed By: #### L [id number], [id number] ####Hard Tile Setter: CLARE HUGGINS ([id number])[facility] (SBHLAB)[address] RBC (Bld) [#/Vol] 3.41 10*6/uL Low 4.40-5.90 [facility] Comment on above: Performed By: #### L [id number], [id number] ####Hard Tile Setter: CLARE HUGGINS ([id number])[facility] (SBHLAB)[address] WBC (Bld) [#/Vol] 11.4 10*3/uL High 3.6-10.7 [facility] Comment on above: Performed By: #### L [id number], [id number] ####Hard Tile Setter: CLARE HUGGINS ([id number])[facility] ([facility])[address] Calcium.ionized [Moles/Vol]O rdered By: John Dean on 05-31-2024 Calcium.ionized (Bld) [Moles/Vol] 4.1 mg/dL Low 4.30 - 5.20 mg/dL [facility] Interpretation and review of laboratory results Abnormal [facility] PH, IONIZED CALCIUM 7.37 7.31 - 7.46 [facility] HEPATIC FUNCTION PANELon Albumin [Mass/Vol] 2.8 g/dL Low 3.4-4.8 [facility] Comment on above: Performed By: #### L [id number], LAB15, [id number], LAB20, [id number] ####Hard Tile Setter: CLARE HUGGINS ([id number])[facility] ([facility])[address] ALP [Catalytic activity/Vol] 69 U/L Normal 40-150 [facility] Comment on above: Performed By: #### L AB113, LAB15, [id number], LAB20, [id number] ####Hard Tile Setter: CLARE HUGGINS ([id number])[facility] ([facility])[address] ALT [Catalytic activity/Vol] 16 U/L Normal <40 [facility] Comment on above: Performed By: #### L AB113, LAB15, [id number], LAB20, [id number] ####Hard Tile Setter: CLARE JOSELUIS ([id number])[facility] AST [Catalytic activity/Vol] 22 U/L Normal <34 [facility] Comment on above: Performed By: #### L AB113, LAB15, [id number], LAB20, [id number] ####Hard Tile Setter: CLARE JOSELUIS ([id number])[facility] ([facility] Bilirubin [Mass/Vol] 0.2 mg/dL Normal <1.2 [facility] Comment on above: Performed By: #### L AB113, LAB15, [id number], LAB20, [id number] ####Hard Tile Setter: CLARE JOSELUIS ([id number])[facility] ([facility] [place] [address] Bilirubin.indirect [Mass/Vol] 0.1 mg/dL Normal <0.5 [facility] Comment on above: Performed By: #### L AB113, LAB15, [id number], LAB20, [id number] ####Hard Tile Setter: CLARE JOSELUIS ([phone])[facility] ([facility])[address] [place] [address] Protein [Mass/Vol] 5.4 g/dL Low 6.4-8.3 [facility] Comment on above: Result Comment: Seru m protein values are higher than plasma values. Samples from recumbent persons are lower by up to 0.5 g/dL as compared to ambulatory persons. After 60 years values are lower by up to 0.2 g/dL. Performed By: #### L AB113, LAB15, [id number], LAB20, [id number] ####Hard Tile Setter: CLARE JOSELUIS ([id number])[facility] ([facility] [place] [address] Hepatic function 2000 panelo n 05-31-2024 Albumin [Mass/Vol] 2.8 g/dL Low 3.4 - 4.8 g/dL [facility] ALP [Catalytic activity/Vol] 69 U/L 40 - 150 U/L [facility] ALT [Catalytic activity/Vol] 16 [facility] AST [Catalytic activity/Vol] 22 U/L [facility] 34 U/L [facility] Bilirubin [Mass/Vol] 0.2 mg/dL [facility] - 1.2 mg/dL [facility] Bilirubin.conjugated [Mass/Vol] 0.1 mg/dL [facility] - 0.5 mg/dL [facility] Protein [Mass/Vol] 5.4 g/dL Low 6.4 - 8.3 g/dL [facility] Comment on above: Serum protein values are higher than plasma values. Samples from recumbent persons are lower by up to 0.5 g/dL as compared to ambulatory persons. After 60 years values are lower by up to 0.2 g/dL. Laboratory - Chemistry and C hemistry - challengeon 05-31-2024 Glucose [Mass/Vol] 274 mg/dL High 70 - 100 mg/dL [facility] Glucose [Mass/Vol] 271 mg/dL High 70 - 100 mg/dL [facility] Procalcitonin [Mass/Vol] 2.1 ng/mL High FABIAN F - 0.07 ng/mL [facility] Glucose [Mass/Vol] 235 mg/dL High 70 - 100 mg/dL [facility] Glucose [Mass/Vol] 167 mg/dL High 70 - 100 mg/dL [facility] Glucose [Mass/Vol] 233 mg/dL High 70 - 100 mg/dL [facility] Magnesium [Mass/Vol] 2.6 mg/dL 1.6 - 2 .6 mg/dL [facility] Laboratory - Hematology and Cell countson 05-31-2024 Band form neutrophils (Bld) [#/Vol] 0.3 10*3/uL High NINF - 0.0 10*3/uL [facility] Band form neutrophils/100 WBC (Bld) 3 % High NINF - 0 % [facility] Wyatt cells LM Ql (Bld) Slight Abnormal (none) [facility] Lymphocytes (Bld) [#/Vol] 0.6 10*3/uL Low 1.0 - 4.3 10*3/uL [facility] Lymphocytes/100 WBC (Bld) 5 % Low 15 - 45 % [facility] Monocytes (Bld) [#/Vol] 0.5 10*3/uL 0.0 - 0.9 10*3/uL [facility] Monocytes/100 WBC (Bld) 4 % Low 5 - 13 % [facility] Neutrophils (Bld) [#/Vol] 10.4 10*3/uL High 1.8 - 7.5 10*3/uL [facility] Ovalocytes LM Ql (Bld) Moderate Abnormal (none) [facility] Poikilocytosis LM Ql (Bld) Moderate Abnormal (none) [facility] RBC morphology finding Nom (Bld) abnormal [facility] Segmented neutrophils/100 WBC (Bld) 88 % High 38 - 82 % [facility] MAGNESIUMon 05-31-2024 Magnesium [Mass/Vol] 2.6 mg/dL Normal 1.6-2.6 [facility] Comment on above: Result Comment: TAVO Hernandez COMMENTS:Higher values can be expected in females during menses. Performed By: #### L AB113, LAB15, [id number], LAB20, [id number] ####Hard Tile Setter: CLARE HUGGINS ([id number])[facility] ([facility] [place] [address] MANUAL DIFFERENTIAL (CELLAVI JARROD)on 05-31-2024 BAND NEUTROPHILS TOTAL PER COUNTED LEUKOCYTES BY MANUAL COUNT 3 Normal [facility] Comment on above: Performed By: #### L [id number], [id number] ####Hard Tile Setter: CLARE HUGGINS ([id number])[facility] BANDS (10*3/UL) IN BLOOD-CELLAVISION 0.3 10*3/uL High <=0.0 [facility] Comment on above: Performed By: #### L [id number], [id number] ####Hard Tile Setter: CLARE HUGGINS ([id number])[facility] ([facility])[address] BASOPHILS TOTAL PER COUNTED LEUKOCYTES BY MANUAL COUNT Normal [facility] Comment on above: Performed By: #### L [id number], [id number] ####Hard Tile Setter: CLARE HUGGINS ([id number])[facility] [place] ([facility])[address] BLASTS TOTAL PER COUNTED LEUKOCYTES BY MANUAL COUNT [facility] Comment on above: Performed By: #### L [id number], [id number] ####Hard Tile Setter: CLARE HUGGINS ([id number])[facility] [place] ([facility])[address] ELLA CELLS PRESENCE IN BLOOD BY LIGHT MICROSCOPY Slight Abnormal (none) [facility] Comment on above: Performed By: #### L [id number], [id number] ####Hard Tile Setter: CLARE HUGGINS ([id number])[facility] [place] ([facility])[address] [place] [address] [place] EOSINOPHILS TOTAL PER COUNTED LEUKOCYTES BY MANUAL COUNT [facility] Comment on above: Performed By: #### L [id number], [id number] ####Hard Tile Setter: CLARE HUGGINS ([id number])[facility] [place] ([facility])[address] [place] [address] [place] LYMPHOCYTES (10*3/UL) IN BLOOD-CELLAVISION 0.6 10*3/uL Low 1.0-4.3 [facility] Comment on above: Performed By: #### L [id number], [id number] ####Hard Tile Setter: CLARE HUGGINS ([id number])[facility] [place] ([facility])[address] [place] [address] [place] LYMPHOCYTES TOTAL PER COUNTED LEUKOCYTES BY MANUAL COUNT [address] [place] [address] Comment on above: Performed By: #### L [id number], [id number] ####Hard Tile Setter: CLARE HUGGINS ([id number])[facility] [place] ([facility])[address] [place] [address] [place] LYMPHOCYTES/100 LEUKOCYTES IN BLOOD-CELLAVISION 5 % Low 15-45 [facility] Comment on above: Performed By: #### L [id number], [id number] ####Hard Tile Setter: CLARE HUGGINS ([id number])[facility] [place] ([facility])[address] [place] [address] [place] METAMYELOCYTES TOTAL PER COUNTED LEUKOCYTES BY MANUAL COUNT Normal [facility] Comment on above: Performed By: #### L [id number], [id number] ####Hard Tile Setter: CLARE HUGGINS ([id number])[facility] [place] ([facility])[address] [place] [address] [place] MONOCYTES (10*3/UL) IN BLOOD-CELLAVISION 0.5 10*3/uL Normal 0.0-0.9 [facility] Comment on above: Performed By: #### L [id number], [id number] ####Hard Tile Setter: CLARE HUGGINS ([id number])[facility] [place] ([facility])[address] [place] [address] [place] MONOCYTES TOTAL PER COUNTED LEUKOCYTES BY MANUAL COUNT 4 Normal [facility] Comment on above: Performed By: #### L [id number], [id number] ####Hard Tile Setter: CLARE HUGGINS ([id number])[facility] [place] ([facility])[address] [place] [address] [place] MONOCYTES/100 LEUKOCYTES IN BLOOD-ROGER 4 % Low 5-13 [facility] Comment on above: Performed By: #### L [id number], [id number] ####Hard Tile Setter: CLARE HUGGINS ([id number])[facility] [place] ([facility])[address] [place] [address] [place] MYELOCYTES COUNTED BY MANUAL COUNT Normal [facility] Comment on above: Performed By: #### L [id number], [id number] ####Hard Tile Setter: CLARE HUGGINS ([id number])[facility] [place] ([facility])[address] [place] [address] [place] NEUTROPHILS BAND FORM/100 LEUKOCYTES IN BLOOD-CELLAVISI 3 % High <=0 [facility] Comment on above: Performed By: #### L [id number], [id number] ####Hard Tile Setter: CLARE BELLOCER ([id number])[facility] [place] ([facility])[address] [place] [address] [place] NEUTROPHILS TOTAL PER COUNTED LEUKOCYTES BY MANUAL COUNT 88 Normal [facility] Comment on above: Performed By: #### L [id number], [id number] ####Hard Tile Setter: CLARE WINTEREVARISTOKRISTYN ([id number])[facility] [place] ([facility])[address] [place] [address] [place] OVALOCYTES PRESENCE IN BLOOD BY LIGHT MICROSCOPY Moderate Abnormal (none) [facility] Comment on above: Performed By: #### L [id number], [id number] ####Hard Tile Setter: CLARE HUGGINS ([id number])[facility] [place] ([facility])[address] [place] [address] [place] POIKILOCYTOSIS (PRESENCE) IN BLOOD BY LIGHT MICROSCOPY Moderate Abnormal (none) [facility] Comment on above: Performed By: #### L [id number], [id number] ####Hard Tile Setter: CLARE MERCERKRISTYN ([id number])[facility] [place] ([facility])[address] [place] [address] [place] PROMYELOCYTES TOTAL PER COUNTED LEUKOCYTES BY MANUAL COUNT Normal [facility] Comment on above: Performed By: #### L [id number], [id number] ####Hard Tile Setter: CLARE HUGGINS ([id number])[facility] [place] ([facility])[address] [place] [address] [place] RBC MORPHOLOGY IN BLOOD abnormal Normal [facility] Comment on above: Performed By: #### L [id number], [id number] ####Hard Tile Setter: CLARE HUGGINS ([id number])[facility] [place] ([facility])[address] [place] [address] [place] SEGMENTED NEUTROPHILS (10*3/UL) IN BLOOD-CELLAVISION 10.4 10*3/uL High 1.8-7.5 [facility] Comment on above: Performed By: #### L [id number], [id number] ####Hard Tile Setter: CLARE HUGGINS ([id number])[facility] [place] ([facility])[address] SEGMENTED NEUTROPHILS/100 LEUKOCYTES-CE 88 % High 38-82 [facility] Comment on above: Performed By: #### L [id number], [id number] ####Hard Tile Setter: CLARE HUGGINS ([id number])[facility] [place] ([facility])[address] UNCLASSIFIED CELLS TOTAL PER COUNTED LEUKOCYTES BY MANUAL COUNT Normal [facility] Comment on above: Performed By: #### L [id number], [id number] ####Hard Tile Setter: CLARE HUGGINS ([id number])[facility] [place] ([facility])[address] VARIANT LYMPHOCYTES TOTAL PER COUNTED LEUKOCYTES BY MANUAL COUNT Normal [facility] Comment on above: Performed By: #### L [id number], [id number] ####Hard Tile Setter: CLARE HUGGINS ([phone])[facility] [place] ([facility])[address] [place] [address] [place] Magnesium [Mass/Vol]on 05-31 Interpretation and review of laboratory results Normal [facility] Higher values can be expected in females during menses. [facility] No Panel Informationon 05-31 Interpretation and review of laboratory results Abnormal [facility] Performed by: [facility], [address] [place] [address] CLIA ID: [id number] [facility] Interpretation and review of laboratory results Abnormal [facility] Performed by: [facility] [place] [facility], [address] [place] [address] CLIA ID: [id number] [facility] Interpretation and review of laboratory results Abnormal [facility] Performed by: [facility], [address] [facility] [address] CLIA ID: [id number] [facility] Interpretation and review of laboratory results Abnormal [facility] Performed by: [facility], [address] [facility] [address] CLIA ID: [id number] [facility] Interpretation and review of laboratory results Abnormal [facility] Performed by: [facility], [address] [place] [address] CLIA ID: [id number] [facility] Atypical Lymphocytes Manual [facility] Bands Manual 3 [facility] Basophils Manual [facility] Blasts Manual [facility] Eosinophils Manual [facility] Interpretation and review of laboratory results Abnormal [facility] Lymphocytes Manual 5 [facility] Metamyelocytes Manual [facility] Monocytes Manual 4 [facility] Myelocytes Manual [facility] Neutrophils Manual 88 [facility] Promyelocytes Manual [facility] Unclassified Cells, Manual [facility] Interpretation and review of laboratory results Abnormal [facility] PHOSPHORUSon 05-31-2024 Phosphate [Mass/Vol] 5.2 mg/dL High 2.3-4.7 [facility] Comment on above: Performed By: #### L AB113, LAB15, [id number], LAB20, [id number] ####Hard Tile Setter: CLARE HUGGINS ([id number])[facility] ([facility])[address] [place] [address] [place] PROCALCITONIN TESTon 025 PROCALCITONIN 2.10 ng/mL High <0.07 [facility] Comment on above: Result Comment: TAVO Hernandez COMMENTS:PCT <0.50 = Low risk of severe sepsis and/or septic shock.PCT >2.00 = High risk of severe sepsis and/or septic shock. Performed By: #### L AB113, LAB15, [id number], LAB20, [id number] ####Hard Tile Setter: CLARE HUGGINS ([phone])[facility] ([facility])[address] [place] [address] [place] Phosphate [Moles/Vol]on 05-18 Phosphate [Mass/Vol] 5.2 mg/dL High 2.3 - 4 .7 mg/dL [facility] Procalcitonin [Mass/Vol]on 0 05-31-2024 Interpretation and review of laboratory results Abnormal [facility] PCT <0.50 = Low risk of severe sepsis and/or septic shock. PCT >2.00 = High risk of severe sepsis and/or septic shock. [facility] Progress Noteon 05-31-2024 Progress Note Normal [facility] Progress Note Normal [facility] XR Chest Single viewon 05-31 [...] Electronically Signed Date/Time: 05/31/2024 5:51 AM EST [facility] Patient Name: JAMES REYES : [...] was obtained and reviewed. Special views: None. [facility] William Huston MD - 05/31/2024 Patient Name: [...] Electronically Signed Date/Time: 05/31/2024 5:51 AM EST [facility] Radiology Study observation (narrative) [facility] XR Chest Single viewOrdered By: William Huston on 05-31-2024 [facility] Work Phone: BASIC METABOLIC PANELon 05-18 Anion gap [Moles/Vol] 10 mmol/L Normal 3-[address] [facility] Comment on above: Performed By: #### L AB106, LAB15, [id number] ####Hard Tile Setter: CLARE HUGGINS ([id number])[facility] ([facility])[address] [place] [address] Calcium [Mass/Vol] 7.8 mg/dL Low 8.8-10.0 [facility] Comment on above: Performed By: #### L AB106, LAB15, [id number] ####Hard Tile Setter: CLARE HUGGINS ([id number])[facility] ([facility])[address] Chloride [Moles/Vol] 109 mmol/L High 98-107 [facility] Comment on above: Performed By: #### L AB106, LAB15, [id number] ####Hard Tile Setter: CLARE HUGGINS ([id number])[facility] ([facility])[address] CO2 [Moles/Vol] 20 mmol/L Low 23-31 [facility] Comment on above: Performed By: #### L AB106, LAB15, [id number] ####Hard Tile Setter: CLARE HUGGINS ([id number])[facility] ([facility])[address] Creatinine [Mass/Vol] 1.28 mg/dL High 0.72-1.[address] [facility] Comment on above: Performed By: #### L AB106, LAB15, [id number] ####Hard Tile Setter: CLARE HUGGINS ([id number])[facility]ITAL[facility] BARBDIGN[facility] ([facility])[address] GLOMERULAR FILTRATION RATE ML/MIN/1.73 SQ M.PREDICTED 61.3 mL/min/1.73m*2 Normal >60.0 [facility] Comment on above: Result Comment: Calc ulation based on the Chronic Kidney Disease Epidemiology Collaboration (CKD-EPI) equation refit without adjustment for race Performed By: #### L JACE, LAB15, [id number] ####Hard Tile Setter: CLARE HUGGINS ([id number])[facility] ([facility])[address] Glucose [Mass/Vol] 284 mg/dL High 82-115 [facility] Comment on above: Performed By: #### L AB106, LAB15, [id number] ####Hard Tile Setter: CLARE HUGGINS ([id number])[facility] ([facility])[address] [place] [address] [place] Potassium [Moles/Vol] 4.8 mmol/L Normal 3.5-5.[address] [facility] Comment on above: Result Comment: [facility] potassium values may be up to 0.5 mmol/L lower than serum values. Performed By: #### L AB106, LAB15, [id number] ####Hard Tile Setter: CLARE HUGGINS ([id number])[facility] ([facility])[address] [place] [address] [place] Sodium [Moles/Vol] 139 mmol/L Normal 136-145 [facility] Comment on above: Performed By: #### L AB106, LAB15, [id number] ####Hard Tile Setter: CLARE HUGGINS ([id number])[facility]ITAL[facility] [place] (SBHLAB)[address] [place] [address] Urea nitrogen [Mass/Vol] 44 mg/dL High 9- [facility] Comment on above: Performed By: #### L AB106, LAB15, [id number] ####Hard Tile Setter: CLARE HUGGINS ([id number])[facility]ITAL[facility] J[facility]AD[facility] (SB[facility])[address] [place] [address] BLOOD CULTUREon 05-30-2024 Bacteria identified Cx Nom (Bld) Normal [facility] Comment on above: Performed By: #### L [id number] ####Hard Tile Setter: SWATI RATLIFF ([id number])[facility] ([facility])[address] [place] [address] Bacteria identified Cx Nom (Bld) Normal [facility] Comment on above: Performed By: #### L [id number] ####Hard Tile Setter: SWATI RATLIFF ([id number])[facility] ([facility])[address] [place] [address] BLOOD GAS ARTERIALon 025 Base excess Calc (Bld) [Moles/Vol] -4.0000 mmol/L Low -3.0-3.0 [facility] Comment on above: Performed By: #### L [id number] ####Hard Tile Setter: CLARE HUGGINS ([id number])[facility]ITAL[facility] JARABERNADINE (SBHLAB)[address] [place] [address] [place] CO2 [Moles/Vol] 23.1 mmol/L Normal 22.0-28.0 [facility] Comment on above: Performed By: #### L AB76 ####Hard Tile Setter: CLARE HUGGINS ([id number])[facility]ITAL[facility] J[facility]ADIGN[facility] ([facility])[address] [place] [address] HCO3 (Bld) [Moles/Vol] 21.8 mmol/L Normal 21.0-27.0 [facility] Comment on above: Performed By: #### L AB76 ####Hard Tile Setter: CLARE HUGGINS ([id number])[facility] [place] ([facility])[address] Hemoglobin (Bld) [Mass/Vol] 11.5 g/dL Low Screen only [facility] Comment on above: Performed By: #### L AB76 ####Hard Tile Setter: CLARE HUGGINS ([id number])[facility]ITAL[facility]BCARLSBAD [facility]ERN (SB[facility])[address] OXYGEN SATURATION (%) IN ARTERIAL BLOOD 95.9 % Low 97.0-99.0 [facility] Comment on above: Performed By: #### L AB76 ####Hard Tile Setter: CLARE HUGGINS ([id number])[facility]BC[facility] ([facility])[address] PCO2 ARTERIAL 42.5 mm Hg Normal 35.0-48.0 [facility] Comment on above: Performed By: #### L AB76 ####Hard Tile Setter: CLARE HUGGINS ([id number])[facility] ([facility])[address] PH ARTERIAL 7.327 Low 7.350-7.450 [facility] Comment on above: Performed By: #### L AB76 ####Hard Tile Setter: CLARE HUGGINS ([id number])[facility] ([facility])[address] PO2 ARTERIAL 85.7 mm Hg Normal 83.0-108.0 [facility] Comment on above: Performed By: #### L AB76 ####Hard Tile Setter: CLARE HUGGINS ([id number])[facility] ([facility])[address] SOURCE OF OXYGEN Bi-PAP Normal [facility] Comment on above: Result Comment: 50% Performed By: #### L AB76 ####Hard Tile Setter: CLARE HUGGINS ([id number])[facility] ([facility])[address] Base excess Calc (Bld) [Moles/Vol] -3.0000 mmol/L Normal -3.0-3.0 [facility] Comment on above: Performed By: #### L AB76 ####Hard Tile Setter: CLARE HUGGINS ([id number])[facility] [place] ([facility])[address] CO2 [Moles/Vol] 25.4 mmol/L Normal 22.0-28.0 [facility] Comment on above: Performed By: #### L [id number] ####Hard Tile Setter: CLARE HUGGINS ([id number])[facility] [place] ([facility])[address] HCO3 (Bld) [Moles/Vol] 23.8 mmol/L Normal 21.0-27.0 [facility] Comment on above: Performed By: #### L AB76 ####Hard Tile Setter: CLARE HUGGINS ([id number])[facility] [place] ([facility])[address] Hemoglobin (Bld) [Mass/Vol] 11.3 g/dL Low Screen only [facility] Comment on above: Performed By: #### L AB76 ####Hard Tile Setter: CLARE HUGGINS ([id number])[facility] ([facility])[address] OXYGEN SATURATION (%) IN ARTERIAL BLOOD 89.5 % Low 97.0-99.0 [facility] Comment on above: Performed By: #### L [id number] ####Hard Tile Setter: CLARE HUGGINS ([id number])[facility] [place] ([facility])[address] PCO2 ARTERIAL 50.7 mm Hg High 35.0-48.0 [facility] Comment on above: Performed By: #### L AB76 ####Hard Tile Setter: CLARE HUGGINS ([id number])[facility]BC[facility] ([facility])[address] PH ARTERIAL 7.290 Low 7.350-7.450 [facility] Comment on above: Performed By: #### L [id number] ####Hard Tile Setter: CLARE HUGGINS ([id number])[facility]ITAL[facility] [place] ([facility])[address] PO2 ARTERIAL 64.1 mm Hg Low 83.0-108.0 [facility] Comment on above: Performed By: #### L AB76 ####Hard Tile Setter: CLARE HUGGINS ([id number])[facility]ITAL[facility] J[facility]AD[facility] ([facility])[address] SOURCE OF OXYGEN Heated High Flow Normal [facility] Comment on above: Performed By: #### L [id number] ####Hard Tile Setter: CLARE HUGGINS ([id number])[facility] (SBHLAB)[address] Basic metabolic 1998 panelon 05-30-2024 Anion gap [Moles/Vol] 10 mmol/L 3 - 13 mmol/L [facility] Calcium [Mass/Vol] 7.8 mg/dL Low 8.8 - 10. 0 mg/dL [facility] Chloride [Moles/Vol] 109 mmol/L High 98 - 10 7 mmol/L [facility] CO2 [Moles/Vol] 20 mmol/L Low 23 - 31 mmol/L [facility] Creatinine [Mass/Vol] 1.28 mg/dL High 0.72 - 1.25 mg/dL [facility] GFR/1.73 sq M.predicted (S/P/Bld) [Vol rate/Area] 61.3 mL/min - PINF [facility] Comment on above: Calculation based on the Chronic Kidney Disease Epidemiology Collaboration (CKD-EPI) equation refit without adjustment for race Glucose [Mass/Vol] 284 mg/dL High 82 - 115 mg/dL [facility] Interpretation and review of laboratory results Abnormal [facility] Potassium [Moles/Vol] 4.8 mmol/L 3.5 - 5.1 mmol/L [facility] Comment on above: Plasma potassium adriana ues may be up to 0.5 mmol/L lower than serum values. Sodium [Moles/Vol] 139 mmol/L 136 - 145 mmol/L [facility] Urea nitrogen [Mass/Vol] 44 mg/dL High 9 - 23 mg/dL [facility] CBC W Auto Differential pane l (Bld)Ordered By: Nayely Saab on 05-30-2024 Erythrocyte distribution width (RBC) [Ratio] 15.5 % High 11.5 - 15.0 % [facility] Hematocrit (Bld) [Volume fraction] 34.7 % Low 40.0 - 52.0 % [facility] Hemoglobin (Bld) [Mass/Vol] 10.6 g/dL Low 13.0 - 18.0 g/dL [facility] Interpretation and review of laboratory results Abnormal [facility] MCH (RBC) [Entitic mass] 29 pg 26. 0 - 34.0 pg [facility] MCHC (RBC) [Mass/Vol] 30.5 % 30.5 - 36.0 % [facility] MCV (RBC) [Entitic vol] 94.8 fL 77.0 - 99.0 fL [facility] Platelet mean volume (Bld) [Entitic vol] 10.6 fL 9.0 - 12.7 fL [facility] Platelets (Bld) [#/Vol] 190 10*3/uL 140 - 440 10*3/uL [facility] RBC (Bld) [#/Vol] 3.66 10*6/uL Low 4.40 - 5.9 0 10*6/uL [facility] WBC (Bld) [#/Vol] 14.1 10*3/uL High 3.6 - 10.7 10*3/uL [facility] CBC WITH AUTO DIFFERENTIALon 05-30-2024 Erythrocyte distribution width (RBC) [Ratio] 15.5 % High 11.5-15.0 [facility] Comment on above: Performed By: #### L [id number], [id number] ####Hard Tile Setter: CLARE HUGGINS ([id number])[facility] ([facility])[address] [place] [address] Hematocrit (Bld) [Volume fraction] 34.7 % Low 40.0-52.0 [facility] Comment on above: Performed By: #### L [id number], [id number] ####Hard Tile Setter: CLARE MERCERKRISTYN ([id number])[place] (SBHLAB)[address] Hemoglobin (Bld) [Mass/Vol] 10.6 g/dL Low 13.0-18.0 [facility] Comment on above: Performed By: #### L [id number], [id number] ####Hard Tile Setter: CLARE BELLOCER ([phone])[facility]ITAL[facility] [place] (SBHLAB)[address] MCH (RBC) [Entitic mass] 29.0 pg Normal 26.0-34.0 [facility] Comment on above: Performed By: #### L [id number], [id number] ####Hard Tile Setter: CLARE MERCERKRISTYN ([id number])[facility]ITAL[facility] [place] (SBHLAB)[address] MCHC 30.5 % Normal 30.5-36.0 [facility] Comment on above: Performed By: #### L [id number], [id number] ####Hard Tile Setter: CLARE MERCERKRISTYN ([id number])[facility]ITAL[facility] [place] (SBHLAB)[address] MCV (RBC) [Entitic vol] 94.8 fL Normal 77.0-99.0 [facility] Comment on above: Performed By: #### L [id number], [id number] ####Hard Tile Setter: CLARE HUGGINS ([phone])[facility]ITAL[facility] (SB[facility]AB)[address] Platelet mean volume (Bld) [Entitic vol] 10.6 fL Normal 9.0-12.7 [facility] Comment on above: Performed By: #### L [id number], [id number] ####Hard Tile Setter: CLARE MERCERKRISTYN ([id number])[facility]ITAL[facility] [place] (SBHLAB)[address] Platelets (Bld) [#/Vol] 190 10*3/uL Normal 140-440 [facility] Comment on above: Performed By: #### L [id number], [id number] ####Hard Tile Setter: CLARE HUGGINS ([id number])[facility]OS[facility]ITALP[facility] [place] (SBHLAB)[address] RBC (Bld) [#/Vol] 3.66 10*6/uL Low 4.40-5.90 [facility] Comment on above: Performed By: #### L [id number], [id number] ####Hard Tile Setter: CLARE HUGGINS ([id number])[facility] (SBHLAB)[address] WBC (Bld) [#/Vol] 14.1 10*3/uL High 3.6-10.7 [facility] Comment on above: Performed By: #### L [id number], [id number] ####Hard Tile Setter: CLARE HUGGINS ([id number])[facility] (SBHLAB)[address] [place] [address] COMPLETE URINALYSISon 2024 BILIRUBIN, TOTAL PRESENCE IN URINE Negative Normal Negative [facility] Comment on above: Performed By: #### L [id number] ####Hard Tile Setter: CLARE HUGGINS ([id number])[facility] (SBHLAB)[address] [place] [address] Clarity (U) Turbid Abnormal Clear [facility] Comment on above: Performed By: #### L [id number] ####Hard Tile Setter: CLARE HUGGINS ([id number])[facility] (SB[facility]AB)[address] [place] [address] Color (U) Light Yellow Normal Lt. Yellow [facility] Comment on above: Performed By: #### L [id number] ####Hard Tile Setter: CLARE HUGGINS ([phone])[facility] (SBHLAB)[address] [place] [address] GLUCOSE (MG/DL) IN URINE >1,000 Abnormal Nor mal (<70) [facility] Comment on above: Performed By: #### L [id number] ####Hard Tile Setter: CLARE JOSELUIS ([id number])[facility] (HLAB)[address] HEMOGLOBIN PRESENCE IN URINE Negative Normal Negative [facility] Comment on above: Performed By: #### L [id number] ####Hard Tile Setter: CLARE JOSELUIS ([phone])[facility] ([facility] Ketones Ql (U) Negative Normal Negative [facility] Comment on above: Performed By: #### L [id number] ####Hard Tile Setter: CLARE WINTERVERN ([id number])[facility] ([facility])[address] LEUKOCYTE ESTERASE PRESENCE IN URINE BY TEST STRIP Negative Normal Negative [facility] Comment on above: Performed By: #### L [id number] ####Hard Tile Setter: CLARE MERCERKRISTYN ([id number])[facility] ([facility])[address] NITRITE PRESENCE IN URINE Negative Normal Negative [facility] Comment on above: Performed By: #### L [id number] ####Hard Tile Setter: CLARE MERCERKRISTYN ([id number])[facility] ([facility])[address] [place] [address] pH (U) 5.0 [pH] Normal 5.0-8.0 [facility] Comment on above: Performed By: #### L [id number] ####Hard Tile Setter: CLARE WINTERVERN ([id number])[facility] ([facility] Protein (U) [Mass/Vol] Negative Normal Negative [facility] Comment on above: Performed By: #### L [id number] ####Hard Tile Setter: CLARE MERCERKRISTYN ([id number])[facility] ([facility])[address] [place] [address] Specific gravity (U) [Rel density] 1.017 Normal 1.005-1.030 [facility] Comment on above: Performed By: #### L [id number] ####Hard Tile Setter: CLARE HUGGINS ([id number])[facility]DD[facility] ([facility])[address] UROBILINOGEN (MG/DL) IN URINE Normal Normal Normal (0-1) [facility] Comment on above: Performed By: #### L [id number] ####Hard Tile Setter: CLARE HUGGINS ([id number])[facility]ALDD[facility] ([facility])[address] COVID-19, Flu A/B, and RSV C omboon 05-30-2024 Interpretation and review of laboratory results Normal [facility] Consulton 05-30-2024 Consult Normal [facility] Consult Normal [facility] D-DIMER,QUANTITATIVEon 05-30 D-DIMER, INNOVANCE 0.58 mg/L High <0.50 [facility] Comment on above: Result Comment: TAVO Hernandez COMMENTS:Innovance D-Dimer values of <0.50 mg/L FEU can be used in combination with a pre-test probability model (e.g. Well's) to exclude pulmonary embolism (PE) disease, as well as an aid in the diagnosis of deep vein thrombosis (DVT). 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 D-Dimer values of <0.50 mg/L FEU can be used in combination with a pre-test probability model (e.g. Well's) to exclude pulmonary embolism (PE) disease, as well as an aid in the diagnosis of deep vein thrombosis (DVT). [facility] HIGH SENSITIVITY TROPONIN, S ERIAL BASELINEon 05-30-2024 TROPONIN HS SERIAL BASELINE 13 ng/L Normal <=35 [facility] Comment on above: Result Comment: In i ndividuals presenting with symptoms > 2h, a baseline troponin <= 5 ng/L suggests acutecardiac injury is unlikely and further serial testing is generally not indicated. Performed By: #### L AB106, [id number], [id number] ####Hard Tile Setter: CLARE HUGGINS ([phone])[facility] ([facility])[address] [place] [address] HIGH SENSITIVITY TROPONIN, S ERIAL, SECOND TESTon 05-30-2024 2H TROPONIN HS (SERIAL 2ND TROPONIN) 17 ng/L Normal <=35 [facility] Comment on above: Result Comment: Risi ng or falling troponin delta between 2 ??? 15 ng/L as compared to baseline value requires a 3rd serial troponin Performed By: #### L [id number] ####Hard Tile Setter: CLARE HUGGINS ([id number])[facility] ([facility])[address] [place] [address] HIGH SENSITIVITY TROPONIN, S ERIAL, THIRD TESTon 05-30-2024 4H TROPONIN HS (SERIAL 3RD TROPONIN) 21 ng/L Normal <=35 [facility] Comment on above: Result Comment: 4h t roponin (3rd troponin) samples collected between 1h 40 min and 2h and 20 min of the 2h troponin collection time can be utilized to interpret delta troponins as per [facility] algorithms. Samples collected outside this timeframe need to be interpreted clinically.Rising or falling troponin delta between 2 ??? 15 ng/L as compared to 2h troponin valuerequires further evaluation. Performed By: #### L [id number] ####Hard Tile Setter: CLARE HUGGINS ([id number])[facility] [place] (SBHLAB)[address] LACTIC ACID WITH REFLEXon Lactate [Moles/Vol] 1.4 mmol/L Normal 0.5-2.2 [facility] Comment on above: Performed By: #### L [id number] ####Hard Tile Setter: CLARE HUGGINS ([id number])[facility] (SBHLAB)[address] LEGIONELLA AND STREPTOCOCCUS URINE ANTIGENon 05-30-2024 LEGIONELLA AND STREPTOCOCCUS URINE ANTIGEN Normal [facility] Comment on above: Performed By: #### L [id number] ####Hard Tile Setter: SWATI RATLIFF ([id number])[facility] ([facility])[address] [place] [address] Laboratory - Chemistry and C hemistry - challengeon 05-30-2024 Glucose [Mass/Vol] 309 mg/dL High 70 - 100 mg/dL [facility] Glucose [Mass/Vol] 287 mg/dL High 70 - 100 mg/dL [facility] Glucose [Mass/Vol] 247 mg/dL High 70 - 100 mg/dL [facility] Lactate [Moles/Vol] 1.4 mmol/L 0.5 - 2. 2 mmol/L [facility] Laboratory - Chemistry and C hemistry - challengeOrdered By: Kalani Moreno on 05-30-2024 Base excess Calc (Bld) [Moles/Vol] -4 mmol/L Low -3.0 - 3.0 mmol/L [facility] CO2 (Bld) [Partial pressure] 42.5 mm[Hg] [facility] CO2 [Moles/Vol] 23.1 mmol/L 22.0 - 28.0 mmol/L [facility] HCO3 (Bld) [Moles/Vol] 21.8 mmol/L 21.0 - 27.0 mmol/L [facility] Oxygen (Bld) [Partial pressure] 85.7 mm[Hg] [facility] pH (Bld) 7.327 [pH] Low 7.350 - 7.450 [facility] Laboratory - Chemistry and C hemistry - challengeOrdered By: Mayi aNjera on 05-30-2024 Base excess Calc (Bld) [Moles/Vol] -3 mmol/L -3.0 - 3.0 mmol/L [facility] CO2 (Bld) [Partial pressure] 50.7 mm[Hg] High [facility] CO2 [Moles/Vol] 25.4 mmol/L 22.0 - 28.0 mmol/L [facility] HCO3 (Bld) [Moles/Vol] 23.8 mmol/L 21.0 - 27.0 mmol/L [facility] Oxygen (Bld) [Partial pressure] 64.1 mm[Hg] Low [facility] pH (Bld) 7.29 [pH] Low 7.350 - 7.450 [facility] Laboratory - Coagulationon 0 05-30-2024 Fibrin D-dimer FEU (PPP) [Mass/Vol] 0.58 mg/L High NINF - 0.50 mg/L [facility] Laboratory - Hematology and Cell countsOrdered By: Kalani Moreno on 05-30-2024 Hemoglobin (Bld) [Mass/Vol] 11.5 g/dL Low Screen only [facility] Laboratory - Hematology and Cell countsOrdered By: Mayi Najera on 05-30-2024 Hemoglobin (Bld) [Mass/Vol] 11.3 g/dL Low Screen only [facility] Laboratory - Microbiology an d Antimicrobial susceptibilityon 05-30-2024 FLUAV RNA JOAN+probe Ql (Resp) Not detected Not Detected [facility] FLUBV RNA JOAN+probe Ql (Resp) Not detected Not Detected [facility] RSV RNA JOAN+probe Ql (Resp) Not detected Not Detected [facility] SARS-CoV-2 (COVID-19) RNA JOAN+probe Ql (Resp) Not detected Not Detected [facility] SARS-CoV-2 (COVID-19) RNA JOAN+probe Ql (Unsp spec) Methodology: real-time, RT-PCR The SARS-CoV-2, Flu A/B, and RSV Combo assay is intended for in vitro diagnostic use under the FDA Emergency Use Authorization (EUA). This test has not been FDA cleared or approved. In compliance with this authorization, please visit www.fda.gov/media/44570 5/download or www.fda.gov/media/96059 6/download to access the applicable information sheets. [facility] MANUAL DIFFERENTIALon 2024 ANISOCYTOSIS PRESENCE IN BLOOD BY LIGHT MICROSCOPY Slight Abnormal (none) [facility] Comment on above: Performed By: #### L [id number], [id number] ####Hard Tile Setter: CLARE HUGGINS ([phone])[facility] [place] (SBHLAB)[address] BAND NEUTROPHILS TOTAL PER COUNTED LEUKOCYTES BY MANUAL COUNT 7 Normal [facility] Comment on above: Performed By: #### L [id number], [id number] ####Hard Tile Setter: CLARE HUGGINS ([id number])[facility] [place] (SBHLAB)[address] BANDS 1.0 10*3/uL High <=0.0 [facility] Comment on above: Performed By: #### L [id number], [id number] ####Hard Tile Setter: CLARE HUGGINS ([id number])[facility] ([facility])[address] [place] [address] CELLS COUNTED TOTAL (#) IN BLOOD 101 Normal [facility] Comment on above: Performed By: #### L [id number], [id number] ####Hard Tile Setter: CLARE HUGGINS ([id number])[facility] [place] ([facility])[address] DIFFERENTIAL METHOD Manual differential performed Normal [facility] Comment on above: Performed By: #### L [id number], [id number] ####Hard Tile Setter: CLARE HUGGINS ([id number])[facility] [place] ([facility])[address] LEUKOCYTE MORPHOLOGY FINDING IN BLOOD Normal Normal [facility] Comment on above: Performed By: #### L [id number], [id number] ####Hard Tile Setter: CLARE HUGGINS ([id number])[facility] (SBHLAB)[address] LEUKOCYTES (10*3/UL) NUCLEATED ERYTHROCYTE ADJUST 14.1 10*3/uL High 3.6-10.7 [facility] Comment on above: Performed By: #### L [id number], [id number] ####Hard Tile Setter: CLARE WINTERVERN ([id number])[facility] [place] (SBHLAB)[address] [place] [address] [place] LYMPHOCYTES (10*3/UL) IN BLOOD BY MANUAL COUNT 0.3 10*3/uL Low 1.0-4.3 [facility] Comment on above: Performed By: #### L [id number], [id number] ####Hard Tile Setter: CLARE WINTERVERN ([phone])[facility] [place] (SBHLAB)[address] [place] [address] [place] LYMPHOCYTES TOTAL PER COUNTED LEUKOCYTES BY MANUAL COUNT 2 Normal [facility] Comment on above: Performed By: #### L [id number], [id number] ####Hard Tile Setter: CLARE WINTERVERN ([id number])[facility] [place] (SBHLAB)[address] [place] [address] [place] LYMPHOCYTES/100 LEUKOCYTES IN BLOOD BY MANUAL COUNT 2 % Low 15-45 [facility] Comment on above: Performed By: #### L [id number], [id number] ####Hard Tile Setter: CLARE HUGGINS ([id number])[facility] [place] (SB[facility]AB)[address] [place] [address] [place] MONOCYTES (10*3/UL) IN BLOOD BY MANUAL COUNT 1.1 10*3/uL High 0.0-0.9 [facility] Comment on above: Performed By: #### L [id number], [id number] ####Hard Tile Setter: CLRAE MERCERKRISTYN ([id number])[facility] [place] (SBHLAB)[address] [place] [address] [place] MONOCYTES TOTAL PER COUNTED LEUKOCYTES BY MANUAL COUNT 8 Normal [facility] Comment on above: Performed By: #### L [id number], [id number] ####Hard Tile Setter: CLARE MERCERKRISTYN ([id number])[facility] [place] (SBHLAB)[address] [place] [address] [place] MONOCYTES/100 LEUKOCYTES IN BLOOD BY MANUAL COUNT 8 % Normal 5-13 [facility] Comment on above: Performed By: #### L [id number], [id number] ####Hard Tile Setter: CLARE HUGGINS ([id number])[facility] [place] (SB[facility]AB)[address] [place] [address] [place] NEUTROPHILS (SEGS+BANDS) (10*3/UL) BY MANUAL COUNT 12.7 10*3/uL High 1.8-7.0 [facility] Comment on above: Performed By: #### L [id number], [id number] ####Hard Tile Setter: CLARE WINTERVERN ([phone])[facility] [place] (SB[facility])[address] [place] [address] [place] NEUTROPHILS BAND FORM/100 LEUKOCYTES IN BLOOD BY MANUAL COUNT 7 % High <=0 [facility] Comment on above: Performed By: #### L [id number], [id number] ####Hard Tile Setter: CLARE WINTEREVARISTOKRISTYN ([id number])[facility] [place] ([facility])[address] NEUTROPHILS TOTAL PER COUNTED LEUKOCYTES BY MANUAL COUNT 84 Normal [facility] Comment on above: Performed By: #### L [id number], [id number] ####Hard Tile Setter: CLARE MERCERKRISTYN ([id number])[facility] [place] ([facility])[address] OVALOCYTES PRESENCE IN BLOOD BY LIGHT MICROSCOPY Slight Abnormal (none) [facility] Comment on above: Performed By: #### L [id number], [id number] ####Hard Tile Setter: CLARE MERCERKRISTYN ([phone])[facility] [place] (SB[facility]AB)[address] [place] [address] [place] PLATELET MORPHOLOGY IN BLOOD Normal Normal [facility] Comment on above: Performed By: #### L [id number], [id number] ####Hard Tile Setter: CLARE HUGGINS ([phone])[facility] [place] ([facility])[address] [place] [address] [place] POLYCHROMASIA IN BLOOD BY LIGHT MICROSCOPY Slight Abnormal (none) [facility] Comment on above: Performed By: #### L [id number], [id number] ####Hard Tile Setter: CLARE HUGGINS ([phone])[facility] (SBHL[facility])[address] SEGEMENTED NEUTROPHILS/100 LEUKOCYTES BY MANUAL COUNT 83 % High 38-82 [facility] Comment on above: Performed By: #### L [id number], [id number] ####Hard Tile Setter: CLARE HUGGINS ([phone])[facility] ([facility])[address] SEGMENTED NEUTROPHILS (10*3/UL)IN BLOOD BY MANUAL COUNT 12.7 10*3/uL High 1.8-7.5 [facility] Comment on above: Performed By: #### L [id number], [id number] ####Hard Tile Setter: CLARE HUGGINS ([phone])[facility] (SBHLAB)[address] [place] [address] MRSA BY PCRon 05-30-2024 MRSA BY PCR Normal [facility] Comment on above: Performed By: #### L [id number] ####Hard Tile Setter: SWATI RATLIFF ([id number])[facility] ([facility])[address] [place] [address] MRSA DNA JOAN+probe Ql (Nose) on 05-30-2024 Interpretation and review of laboratory results Normal [facility] mecA gene Not detected Not Detected [facility] Staphylococcus aureus Not detected Not Detected [facility] No Staphylococcus aureus detected. Negative nasal MRSA PCR has a high negative predictive value for MRSA pneumonia. Consider stopping Vancomycin if no other clinical indication. Contact Antimicrobial Stewardship for further recommendations. Staphylococcus aureus nasal screen by real-time PCR. This test was modified and its performance characteristics determined by [facility]. The U. S. Food and Drug Administration has not approved or cleared this test; however, FDA clearance or approval is not currently required for clinical use. The results are not intended to be used as the sole means for clinical diagnosis or patient management decisions. [facility] Manual differential performe d Ql (Bld)Ordered By: Paula Armenta on 05-30-2024 Anisocytosis Ql (Bld) Slight Abnormal (none) [facility] Band form neutrophils (Bld) [#/Vol] 1 10*3/uL High NINF - 0.0 10*3/uL [facility] Band form neutrophils/100 WBC (Bld) 7 % High NINF - 0 % [facility] Bands Manual 7 [facility] Cells Counted Total (Bld) [#] 101 {cells} [facility] Differential Method Manual differential performed [facility] Interpretation and review of laboratory results Abnormal [facility] Leukocyte morphology finding Nom (Bld) Normal [facility] Lymphocytes (Bld) [#/Vol] 0.3 10*3/uL Low 1.0 - 4.3 10*3/uL [facility] Lymphocytes Manual 2 [facility] Lymphocytes/100 WBC (Bld) 2 % Low 15 - 45 % [facility] Monocytes (Bld) [#/Vol] 1.1 10*3/uL High 0.0 - 0.9 10*3/uL [facility] Monocytes Manual 8 [facility] alth Monocytes/100 WBC (Bld) 8 % 5 - 13 % [facility] Neutrophils (Bld) [#/Vol] 12.7 10*3/uL High 1.8 - 7.5 10*3/uL [facility] Neutrophils Manual 84 [facility] Ovalocytes LM Ql (Bld) Slight Abnormal (none) [facility] Platelet morphology finding Nom (Bld) Normal [facility] Polychromasia LM Ql (Bld) Slight Abnormal (none) [facility] Segmented neutrophils/100 WBC (Bld) 83 % High 38 - 82 % [facility] WBC corrected for nucl RBC (Bld) [#/Vol] 14.1 10*3/uL High 3.6 - 10.7 10*3/uL [facility] NT PRO BNPon 05-30-2024 Natriuretic peptide B (Bld) [Mass/Vol] 533 pg/mL High <125 [facility] Comment on above: Performed By: #### L [id number], LAB15, [id number] ####Hard Tile Setter: CLARE HUGGINS ([id number])[facility] [place] [address] Natriuretic peptide B [Mass/ Vol]on 05-30-2024 Interpretation and review of laboratory results Abnormal [facility] Natriuretic peptide B (Bld) [Mass/Vol] 533 pg/mL High NINF - 125 pg/mL [facility] No Panel Informationon 05-30 Interpretation and review of laboratory results Abnormal [facility] Performed by: [facility], [address] [place] [id number] CLIA ID: [id number] [facility] Interpretation and review of laboratory results Abnormal [facility] Performed by: [facility], [address] [facility] [address] CLIA ID: [id number] [facility] 4h Troponin HS (Serial 3rd Troponin) 21 ng/L NINF - 35 ng/L [facility] Comment on above: 4h troponin (3rd tro ponin) samples collected between 1h 40 min and 2h and 20 min of the 2h troponin collection time can be utilized to interpret delta troponins as per [facility] algorithms. Samples collected outside this timeframe need to be interpreted clinically. Rising or falling troponin delta between 2 15 ng/L as compared to 2h troponin value requires further evaluation. Interpretation and review of laboratory results Normal [facility] Interpretation and review of laboratory results Abnormal [facility] Performed by: [facility], [address] [place] [id number] CLIA ID: [id number] [facility] P [place] 37 degrees [facility] VT Interval 195 ms [facility] QRS [place] -60 degrees [facility] QRSD Interval 114 ms [facility] QT Interval 358 ms [facility] QTC Interval 473 ms [facility] T Wave [place] 129 degrees [facility] Sinus tachycardia Left anterior fascicular block Borderline low voltage, extremity leads Abnormal T, consider ischemia, lateral leads Electronically Signed On 05-30-2024 11:40:42 EST by Arsh Mar CV Arsh Carrillo MD - 05/30/2024 IMPRESSION: Sinus tachycardia Left anterior fascicular block Borderline low voltage, extremity leads Abnormal T, consider ischemia, lateral leads Electronically Signed On 05-30-2024 11:40:42 EST by Arsh Mar [facility] 2h Troponin HS (Serial 2nd Troponin) 17 ng/L NINF - 35 ng/L [facility] Comment on above: Rising or falling tr oponin delta between 2 15 ng/L as compared to baseline value requires a 3rd serial troponin Interpretation and review of laboratory results Normal [facility] Interpretation and review of laboratory results Normal [facility] Troponin HS Serial Baseline 13 ng/L NINF - 35 ng/L [facility] Comment on above: In individuals prese nting with symptoms > 2h, a baseline troponin <= 5 ng/L suggests acute cardiac injury is unlikely and further serial testing is generally not indicated. [facility] Interpretation and review of laboratory results Normal [facility] No Panel InformationOrdered By: Rylie Salvador on 05-30-2024 Interpretation and review of laboratory results Normal [facility] Legionella pneumophila Ag Not detected Not Detected [facility] Streptococcus pneumoniae Ag Not detected Not Detected [facility] Methodology: Lateral flow enzyme immunoassay This assay is approved for detection of antigens to Streptococcus pneumoniae and Legionella pneumophila serogroup 1; however, other L. pneumophila serogroups may also be detected. [facility] No Panel InformationOrdered By: Kalani Moreno on 05-30-2024 Interpretation and review of laboratory results Abnormal [facility] Source Of Oxygen Bi-PAP [facility] Comment on above: 50% [facility] No Panel InformationOrdered By: Mayi Najera on 05-30-2024 Interpretation and review of laboratory results Abnormal [facility] Source Of Oxygen Heated High Flow [facility] Progress Noteon 05-30-2024 Progress Note Vancomycin therapy h as been discontinued by Dr. Haydee Willis on 30may2024. Thank you for the consult. Pharmacy signing off for vancomycin dosing. Henok Chagn, PharmD, Date: 05/30/24 Time: 6:10 PM Normal [facility] RESPIRATORY PATHOGENS PANEL BY PCRon 05-30-2024 RESPIRATORY PATHOGENS PANEL BY PCR Normal [facility] Comment on above: Performed By: #### L [id number] ####Hard Tile Setter: SWATI RATLIFF ([id number])[facility] ([address] Respiratory pathogens DNA an d RNA panel JOAN+non-probe (Nph)on 05-30-2024 Adenovirus Not detected Not Detected [facility] B. pertussis DNA JOAN+probe Ql (Unsp spec) Not detected Not Detected [facility] Bordetella parapertussis Not detected Not Detected [facility] Chlamydia pneumoniae Not detected Not Detected [facility] Coronavirus 229E Not detected Not Detected [facility] Coronavirus HKU1 Not detected Not Detected [facility] Coronavirus NL63 Not detected Not Detected [facility] Coronavirus OC43 Not detected Not Detected [facility] FLUAV RNA JOAN+non-probe Ql (Nph) Not detected Not Detected [facility] FLUBV RNA JOAN+non-probe Ql (Nph) Not detected Not Detected [facility] Human Metapneumovirus Not detected Not Detected [facility] Human Rhinovirus/Enterovirus Not detected Not Detected [facility] Interpretation and review of laboratory results Normal [facility] Mycoplasma pneumoniae Not detected Not Detected [facility] Parainfluenza 1 Not detected Not Detected [facility] Parainfluenza 2 Not detected Not Detected [facility] Parainfluenza 3 Not detected Not Detected [facility] Parainfluenza 4 Not detected Not Detected [facility] Respiratory Syncytial Virus Not detected Not Detected [facility] SARS-CoV-2 (COVID-19) RNA JOAN+non-probe Ql (Nph) Not detected Not Detected [facility] Methodology: Multipl ex PCR [facility] SARS-COV-2, FLU A/B, AND RSV COMBOon 05-30-2024 SARS-CoV-2 (COVID-19) RNA JOAN+probe Ql (Unsp spec) Normal [facility] Comment on above: Performed By: #### L [id number] ####Hard Tile Setter: CLARE HUGGINS ([id number])[facility] ([address] Urinalysis complete panel (U )Ordered By: Papo Christopher on 05-30-2024 Bilirubin Ql (U) Negative Negative mg/dL [facility] Clarity (U) Turbid Abnormal Clear [facility] Color (U) Light Yellow Lt. Yellow [facility] Glucose Ql (U) >1,000 Abnormal Normal (<70) mg/dL [facility] Hemoglobin Ql (U) Negative Negative mg/dL [facility] Interpretation and review of laboratory results Abnormal [facility] Ketones (U) [Mass/Vol] Negative Negat abdulkadir mg/dL [facility] Leukocyte esterase Test strip Ql (U) Negative Negative Poornima/uL [facility] Nitrite Ql (U) Negative Negative [facility] pH (U) 5.0 [pH] 5.0 - 8.0 pH [facility] Protein (U) [Mass/Vol] Negative Negat abdulkadir mg/dL [facility] Specific gravity (U) [Rel density] 1.017 1.005 - 1.030 [facility] Urobilinogen (U) [Mass/Vol] Normal Normal (0-1) mg/dL [facility] Vital signson 05-30-2024 Heart rate 105 /min bpm [facility] XR Chest Single viewon 05-30 FINDINGS [...] Signed Date/Time: 05/30/2024 9:11 AM [facility] Patient Name: JAMES REYES : 1955 Exam Date/Time: 05/30/2024 09:03 Procedure: XR CHEST 1 VIEW Ordering Provider: MAR GREGORY Reason For Exam: Dyspnea hypoxia CHEST CLINICAL INDICATION: Hypoxia TECHNIQUE: AP portable chest COMPARISON: 11/30/2023 [facility] Jimbo Voss MD - 05/30/2024 Patient [...] Electronically Signed Date/Time: 05/30/2024 9:11 AM EST [facility] [employer] Radiology Study observation (narrative) [facility] He alth XR Chest Single viewOrdered By: Jimbo Voss on 05-30-2024 [employer] Work Phone: US RETROPERITONEALon 025 US RETROPERITONEAL Normal [facility] US Retroperitoneumon 025 No significant sonographic abnormality of the kidneys. Report Dictated on Electronically Signed By: Marshall He MD Electronically Signed Date/Time: 05/23/2024 4:33 PM EST [facility] [employer] Patient Name: JAMES REYES DOB: 1955 Exam Date/Time: 05/22/2024 12:25 Procedure: US [...] distended urinary bladder without obvious sonographic abnormality. [facility] Marshall He MD - 05/23/2024 Patient Name: [...] Electronically Signed Date/Time: 05/23/2024 4:33 PM EST [facility] US RetroperitoneumOrdered By : Marshall He on 05-23-2024 [facility] Work Phone: US Retroperitoneumon 025 Radiology Study observation (narrative) [facility] alth Diagnostic total prostate sp ecific antigen (PSA) measurementOrdered By: Chelle Troncoso on 05-14-2024 Prostate Specific Antigen Total 0.07 ng/mL 0.0-4.0 [facility] Comment on above: This test was perfor med using the TPSA assay method for the[employer] chemistry system. Values obtained with differentassay methods cannot be used interchangably.When changing PSA assays in the course of monitoring apatient, additional sequential testing should be carriedout to confirm baseline values. AMB POC URINALYSIS DIP STICK AUTO W/O MICROon 05-13-2024 Bilirubin, UA Negative [facility] Blood, UA Negative [facility] Glucose, UA 500 [facility] Ketones, UA (mg/dL) Negative Negative mg/dL [facility] Leukocytes, UA Negative [facility] Nitrite, UA Negative [facility] pH, UA 5.5 [facility] Protein, UA Negative [facility] Spec Grav, UA 1.015 [facility], [facility] 0.2 [facility] Progress Noteon 05-13-2024 Progress Note [facility] Progress Note PVR: 122 mL Normal [facility] Bilirubin directOrdered By: Chelle Troncoso on 04-01-2024 Bilirubin.direct [Mass/Vol] 0.08 mg/dL 0.00-0.30 [facility] Bilirubin, totalOrdered By: Chelle Troncoso on 04-01-2024 Bilirubin [Mass/Vol] 0.40 mg/dL 0.20-1.00 [facility] Comment on above: For patients on eltr ombopag therapy, use of Dimension [place] TBIL is not recommended. Blood urea nitrogen (BUN)/cr eatinine ratioOrdered By: Chelle Troncoso on 04-01-2024 Urea nitrogen/Creatinine [Mass ratio] 18.6 mg/mg 10-20 [facility] Carbon dioxide measurementOr dered By: Chelle Troncoso on 04-01-2024 CO2 [Moles/Vol] 24.0 mmol/L 21.0-32.0 [facility] Chloride measurementOrdered By: Chelle Troncoso on 04-01-2024 Chloride [Moles/Vol] 111 mmol/L High 98-107 [facility] Erythrocyte distribution wid th (RBC) [Ratio]Ordered By: Chelle Troncoso on 04-01-2024 Erythrocyte distribution width (RBC) [Entitic vol] 50.4 fL High 35.1-43.9 [facility] Erythrocyte distribution wid th ratioOrdered By: Chelle Troncoso on 04-01-2024 Erythrocyte distribution width (RBC) [Ratio] 14.2 % 11.6-14.6 [facility] Estimated glomerular filtrat ion rate (GFR) AmericanOrdered By: Chelle Troncoso on 04-01-2024 Estimated GFR (MDRD) Amer 79 mL/min >60 [facility] Comment on above: GFR Calc Glomerular filtration rate ( GFR) estimationOrdered By: Chelle Troncoso on 04-01-2024 Estimated GFR (MDRD) Non-Af Amer 65 mL/min >60 [facility] Comment on above: Non- GFR Calc Glucose measurementOrdered B y: Chelle Troncoso on 04-01-2024 Glucose [Mass/Vol] 205 mg/dL High 74-106 [facility] Comment on above: Glucose result great er than or equal to 200 mg/dLsuggests DIABETES MELLITUS per A.D.A. criteria. Hematocrit Auto (Bld) [Volum e fraction]Ordered By: Chelle Troncoso on 04-01-2024 Hematocrit (Bld) [Volume fraction] 34.2 % Low 40-54 [facility] Hemoglobin A1c percentageOrd ered By: Chelle Troncoso on 04-01-2024 HbA1c (Bld) [Mass fraction] 8.2 % High 3.8-5.6 [facility] Comment on above: Normal < 5.7 % Predi abetic 5.7 - 6.4 % Diabetic >or= 6.5 % Please note range changes. Hemoglobin measurementOrdere d By: Chelle Troncoso on 04-01-2024 Hemoglobin (Bld) [Mass/Vol] 10.4 g/dL Low 13.0-16.5 [facility] High density lipoprotein (HD L) measurementOrdered By: Chelle Troncoso on 04-01-2024 Cholesterol in HDL [Mass/Vol] 44 mg/dL >40 [facility] Comment on above: The drugs N-Acetylcy steine and Metamizole may falsely depress this assay. Reference Range HDL <40 mg/dL Low HDL Cholesterol HDL >or= 60 mg/dL High HDL Cholesterol Laboratory - Chemistry and C hemistry - challengeOrdered By: Chelle Troncoso on 04-01-2024 AST [Catalytic activity/Vol] 8 U/L Low 15-37 [facility] Low density lipoprotein (LDL ) cholesterol measurementOrdered By: Chelle Troncoso on 04-01-2024 Cholesterol in LDL [Mass/Vol] 29 mg/dL 0-130 [facility] MCV (mean corpuscular volume ) determinationOrdered By: Chelle Troncoso on 04-01-2024 MCV (RBC) [Entitic vol] 95.8 fL High 80-94 [facility] Mean corpuscular hemoglobin (MCH) determinationOrdered By: Chelle Troncoso on 04-01-2024 MCH (RBC) [Entitic mass] 29.1 pg 27.0-32.0 [facility] Mean corpuscular hemoglobin concentration (MCHC) determinationOrdered By: Chelle Troncoso on 04-01-2024 MCHC (RBC) [Mass/Vol] 30.4 g/dL Low 32-36 [facility] Mean platelet volume determi nationOrdered By: Chelle Troncoso on 04-01-2024 Platelet mean volume (Bld) [Entitic vol] 10.1 fL 6.2-12.0 [facility] Platelet countOrdered By: Magdalena michaela Thea on 04-01-2024 Platelets (Bld) [#/Vol] 282 10*3/uL 150-450 [facility] Potassium measurementOrdered By: Chelle Troncoso on 04-01-2024 Potassium [Moles/Vol] 4.4 mmol/L 3.5-5.1 [facility] RBC Auto (Bld) [#/Vol]Ordere d By: Chelle Troncoso on 04-01-2024 RBC (Bld) [#/Vol] 3.57 10*6/uL Low 4.6-6.2 [facility] Serum anion gap measurementO rdered By: Chelle Troncoso on 04-01-2024 Anion gap [Moles/Vol] 5 mmol/L 5-15 [facility] Serum globulin measurementOr dered By: Chelle Troncoso on 04-01-2024 Globulin (S) [Mass/Vol] 3.0 g/dL 2.2-4.2 [facility] Serum or plasma alanine weller otransferase (ALT) measurementOrdered By: Chelle Troncoso on 04-01-2024 ALT [Catalytic activity/Vol] 15 U/L Low 16-61 [facility] Serum or plasma albumin william urement (mass/volume)Ordered By: Chelle Troncoso on 04-01-2024 Albumin [Mass/Vol] 2.8 g/dL Low 3.2-5.0 [facility] Serum or plasma alkaline maritza sphatase measurementOrdered By: Chelle Troncoso on 04-01-2024 ALP [Catalytic activity/Vol] 85 U/L 45-117 [facility] Serum or plasma calcium william urement (mass/volume)Ordered By: Chelle Troncoso on 04-01-2024 Calcium [Mass/Vol] 8.6 mg/dL 8.5-10.1 [facility] Serum or plasma cholesterol measurement (mass/volume)Ordered By: Chelle Troncoso on 04-01-2024 Cholesterol [Mass/Vol] 92 mg/dL <200 [facility] Comment on above: <200 mg/dL Desirable 200-240 mg/dL Borderline >240 mg/dL High Risk Serum or plasma creatinine m easurement (mass/volume)Ordered By: Chelle Troncoso on 04-01-2024 Creatinine [Mass/Vol] 1.18 mg/dL 0.70-1.30 [facility] Comment on above: The validity of the calculated GFR & GFRAA in patients over 70 years has not been determined. Clinical correlation is essential. Serum or plasma urea nitroge n measurement (mass/volume)Ordered By: Chelle Troncoso on 04-01-2024 Urea nitrogen [Mass/Vol] 22 mg/dL High 7-18 [facility] Sodium levelOrdered By: Lyle Troncoso on 04-01-2024 Sodium [Moles/Vol] 140 mmol/L 136-145 [facility] TSH QnOrdered By: Chelle roman on 04-01-2024 Thyroid Stimulating Hormone (TSH) 2.010 uIU/mL 0.358-3.740 [facility] Total proteinOrdered By: Costa Troncoso on 04-01-2024 Protein [Mass/Vol] 5.8 g/dL Low 6.4-8.2 [facility] Triglycerides measurementOrd ered By: Chelle Troncoso on 04-01-2024 Triglyceride [Mass/Vol] 97 mg/dL <199 [facility] Comment on above: The drugs N-Acetylcy steine and Metamizole may falsely depress this assay.Serum Triglycerides Reference Interval Normal <150 mg/dL Borderline high 150 - 199 mg/dL High 200 - 499 mg/dL Very High > or = 500 mg/dL Very low density lipoprotein (VLDL) cholesterol measurementOrdered By: Chelle Troncoso on 04-01-2024 VLDL Cholesterol 19 mg/dL 5-40 [facility] White blood cell (WBC) count Ordered By: Chelle Troncoso on 04-01-2024 WBC (Bld) [#/Vol] 6.3 10*3/uL 4.4-11.0 [facility] Blood urea nitrogen (BUN)/cr eatinine ratioOrdered By: Chelle Troncoso on 03-26-2024 Urea nitrogen/Creatinine [Mass ratio] 21.0 mg/mg High 10-20 [facility] Carbon dioxide measurementOr dered By: Chelle Troncoso on 03-26-2024 CO2 [Moles/Vol] 25.0 mmol/L 21.0-32.0 [facility] Chloride measurementOrdered By: Chelle Troncoso on 03-26-2024 Chloride [Moles/Vol] 109 mmol/L High 98-107 [facility] Erythrocyte distribution wid th (RBC) [Ratio]Ordered By: Chelle Troncoso on 03-26-2024 Erythrocyte distribution width (RBC) [Entitic vol] 51.4 fL High 35.1-43.9 [facility] Erythrocyte distribution wid th ratioOrdered By: Chelle Troncoso on 03-26-2024 Erythrocyte distribution width (RBC) [Ratio] 14.4 % 11.6-14.6 [facility] Estimated glomerular filtrat ion rate (GFR) AmericanOrdered By: Chelle Troncoso on 03-26-2024 Estimated GFR (MDRD) Amer 78 mL/min >60 [facility] Comment on above: GFR Calc Glomerular filtration rate ( GFR) estimationOrdered By: Chelle Troncoso on 03-26-2024 Estimated GFR (MDRD) Non-Af Amer 65 mL/min >60 [facility] Comment on above: Non- GFR Calc Glucose measurementOrdered B y: Chelle Troncoso on 03-26-2024 Glucose [Mass/Vol] 255 mg/dL High 74-106 [facility] Comment on above: Glucose result great er than or equal to 200 mg/dLsuggests DIABETES MELLITUS per A.D.A. criteria. Hematocrit Auto (Bld) [Volum e fraction]Ordered By: Chelle Troncoso on 03-26-2024 Hematocrit (Bld) [Volume fraction] 35.5 % Low 40-54 [facility] Hemoglobin measurementOrdere d By: Chelle Troncoso on 03-26-2024 Hemoglobin (Bld) [Mass/Vol] 10.7 g/dL Low 13.0-16.5 [facility] MCV (mean corpuscular volume ) determinationOrdered By: Chelle Troncoso on 03-26-2024 MCV (RBC) [Entitic vol] 97.0 fL High 80-94 [facility] Mean corpuscular hemoglobin (MCH) determinationOrdered By: Chelle Troncoso on 03-26-2024 MCH (RBC) [Entitic mass] 29.2 pg 27.0-32.0 [facility] Mean corpuscular hemoglobin concentration (MCHC) determinationOrdered By: Chelle Troncoso on 03-26-2024 MCHC (RBC) [Mass/Vol] 30.1 g/dL Low 32-36 [facility] Mean platelet volume determi nationOrdered By: Chelle Troncoso on 03-26-2024 Platelet mean volume (Bld) [Entitic vol] 9.9 fL 6.2-12.0 [facility] Platelet countOrdered By: Magdalena Troncoso on 03-26-2024 Platelets (Bld) [#/Vol] 266 10*3/uL 150-450 [facility] Potassium measurementOrdered By: Chelle Troncoso on 03-26-2024 Potassium [Moles/Vol] 4.4 mmol/L 3.5-5.1 [facility] RBC Auto (Bld) [#/Vol]Ordere d By: Chelle Troncoso on 03-26-2024 RBC (Bld) [#/Vol] 3.66 10*6/uL Low 4.6-6.2 [facility] Serum anion gap measurementO rdered By: Chelle Troncoso on 03-26-2024 Anion gap [Moles/Vol] 7 mmol/L 5-15 [facility] Serum or plasma calcium william urement (mass/volume)Ordered By: Chelle Troncoso on 03-26-2024 Calcium [Mass/Vol] 9.2 mg/dL 8.5-10.1 [facility] Serum or plasma creatinine m easurement (mass/volume)Ordered By: Chelle Troncoso on 03-26-2024 Creatinine [Mass/Vol] 1.19 mg/dL 0.70-1.30 [facility] Comment on above: The validity of the calculated GFR & GFRAA in patients over 70 years has not been determined. Clinical correlation is essential. Serum or plasma urea nitroge n measurement (mass/volume)Ordered By: Chelle Troncoso on 03-26-2024 Urea nitrogen [Mass/Vol] 25 mg/dL High 7-18 [facility] Sodium levelOrdered By: Lyle Troncoso on 03-26-2024 Sodium [Moles/Vol] 140 mmol/L 136-145 [facility] White blood cell (WBC) count Ordered By: Chelle Troncoso on 03-26-2024 WBC (Bld) [#/Vol] 11.2 10*3/uL High 4.4-11.0 [facility] 36on 03-15-2024 36 Normal [facility] 36 Normal [facility] 36 Aydee from [employer] calling pt has had a 23# weight gain in 1 week. Call [phone] ask for the 300 [employer] nurse. Normal [facility] 37on 03-08-2024 37 Normal [facility] BASIC METABOLIC PANELon 02-16 Anion gap [Moles/Vol] 11 mmol/L Normal 3-[address] [facility] Comment on above: Performed By: #### L AB103, LAB15 ####Hard Tile Setter: SWATI RATLIFF ([id number])[facility])[address] [place] [address] Calcium [Mass/Vol] 9.1 mg/dL Normal 8.4-10.4 [facility] Comment on above: Performed By: #### L AB103, LAB15 ####Hard Tile Setter: SWATI RATLIFF ([id number])[facility] ([facility])[address] [place] [address] [place] Chloride [Moles/Vol] 105 mmol/L Normal 98-107 [facility] Comment on above: Performed By: #### L AB103, LAB15 ####Hard Tile Setter: SWATI RATLIFF ([id number])[facility])[address] [place] [address] [place] CO2 [Moles/Vol] 19 mmol/L Low 22-30 [facility] Comment on above: Performed By: #### L AB103, LAB15 ####Hard Tile Setter: SWATI RATLIFF ([id number])[facility])[address] [place] [address] [place] Creatinine [Mass/Vol] 1.01 mg/dL Normal 0.66-1.25 [facility] Comment on above: Performed By: #### L AB103, LAB15 ####Hard Tile Setter: SWATI RATLIFF ([id number])[facility])[address] [place] [address] GLOMERULAR FILTRATION RATE ML/MIN/1.73 SQ M.PREDICTED 81.5 mL/min/1.73m*2 Normal >60.0 [facility] [facility] Comment on above: Result Comment: Calc ulation based on the Chronic Kidney Disease Epidemiology Collaboration (CKD-EPI) equation refit without adjustment for race Performed By: #### L AB103, LAB15 ####Hard Tile Setter: SWATI RATLIFF ([id number])[facility] ([facility])[address] [place] [address] Glucose [Mass/Vol] 265 mg/dL High 70-100 [facility] Comment on above: Performed By: #### L AB103, LAB15 ####Hard Tile Setter: SWATI RATLIFF ([id number])[facility])[address] [place] [address] Potassium [Moles/Vol] 4.0 mmol/L Normal 3.5-5.[address] [facility] Comment on above: Performed By: #### L AB103, LAB15 ####Hard Tile Setter: SWATI RATLIFF ([id number])[facility] ([facility])[address] [place] [address] Sodium [Moles/Vol] 135 mmol/L Normal 135-145 [facility] Comment on above: Performed By: #### L AB103, LAB15 ####Hard Tile Setter: SWATI RATLIFF ([id number])[facility])[address] [place] [address] Urea nitrogen [Mass/Vol] 22 mg/dL High 9-20 [facility] Comment on above: Performed By: #### L AB103, LAB15 ####Hard Tile Setter: SWATI RATLIFF ([id number])[facility])[address] [place] [address] Basic metabolic 1998 panelon 03-08-2024 Anion gap [Moles/Vol] 11 mmol/L 3 - 13 mmol/L [facility] Calcium [Mass/Vol] 9.1 mg/dL 8.4 - 10. 4 mg/dL [facility] Chloride [Moles/Vol] 105 mmol/L 98 - 10 7 mmol/L [facility] CO2 [Moles/Vol] 19 mmol/L Low 22 - 30 mmol/L [facility] Creatinine [Mass/Vol] 1.01 mg/dL 0.66 - 1.25 mg/dL [facility] GFR/1.73 sq M.predicted (S/P/Bld) [Vol rate/Area] 81.5 mL/min - PINF [facility] Comment on above: Calculation based on the Chronic Kidney Disease Epidemiology Collaboration (CKD-EPI) equation refit without adjustment for race Glucose [Mass/Vol] 265 mg/dL High 70 - 100 mg/dL [facility] Interpretation and review of laboratory results Abnormal [facility] Potassium [Moles/Vol] 4 mmol/L 3.5 - 5.1 mmol/L [facility] Sodium [Moles/Vol] 135 mmol/L 135 - 145 mmol/L [facility] Urea nitrogen [Mass/Vol] 22 mg/dL High 9 - 20 mg/dL [facility] CBC W Auto Differential pane l (Bld)Ordered By: Kelsi Amaro on 03-08-2024 Basophils (Bld) [#/Vol] 0 10*3/uL 0.0 - 0.2 10*3/uL [facility] Basophils/100 WBC (Bld) 0.5 % 0.0 - 2.0 % [facility] Eosinophils (Bld) [#/Vol] 0.2 10*3/uL 0.0 - 0.5 10*3/uL [facility] Eosinophils/100 WBC (Bld) 2.8 % 0.0 - 6.0 % [facility] Erythrocyte distribution width (RBC) [Ratio] 14.6 % 11.5 - 15.0 % [facility] Hematocrit (Bld) [Volume fraction] 36.8 % Low 40.0 - 52.0 % [facility] Hemoglobin (Bld) [Mass/Vol] 11.4 g/dL Low 13.0 - 18.0 g/dL [facility] Immature granulocytes (Bld) [#/Vol] 0 10*3/uL NINF - 0.1 10*3/uL [facility] Immature granulocytes/100 WBC (Bld) 0.3 % 0.0 - 2.0 % [facility] Interpretation and review of laboratory results Abnormal [facility] Lymphocytes (Bld) [#/Vol] 0.8 10*3/uL Low 1.0 - 4.3 10*3/uL [facility] Lymphocytes/100 WBC (Bld) 12.3 % Low 15.0 - 45.0 % [facility] MCH (RBC) [Entitic mass] 29.7 pg 26. 0 - 34.0 pg [facility] MCHC (RBC) [Mass/Vol] 31 % 30.5 - 36.0 % [facility] MCV (RBC) [Entitic vol] 95.8 fL 77.0 - 99.0 fL [facility] Monocytes (Bld) [#/Vol] 0.6 10*3/uL 0.0 - 0.9 10*3/uL [facility] Monocytes/100 WBC (Bld) 9.4 % 5.0 - 13.0 % [facility] Neutrophils (Bld) [#/Vol] 4.7 10*3/uL 1.8 - 7.5 10*3/uL [facility] Neutrophils/100 WBC (Bld) 74.7 % 38.0 - 82.0 % [facility] Nucleated RBC/100 WBC (Bld) [Ratio] 0 % [facility] Platelet mean volume (Bld) [Entitic vol] 10.2 fL 9.0 - 12.7 fL [facility] Platelets (Bld) [#/Vol] 248 10*3/uL 140 - 440 10*3/uL [facility] RBC (Bld) [#/Vol] 3.84 10*6/uL Low 4.40 - 5.9 0 10*6/uL [facility] WBC (Bld) [#/Vol] 6.4 10*3/uL 3.6 - 10.7 10*3/uL [facility] CBC WITH AUTO DIFFERENTIALon 03-08-2024 Basophils (Bld) [#/Vol] 0.0 10*3/uL Normal 0.0-0.2 [facility] Comment on above: Performed By: #### L [id number] ####Hard Tile Setter: SWATI RATLIFF ([id number])[facility] ([address] Basophils/100 WBC (Bld) 0.5 % Normal 0.0-2.0 [facility] Comment on above: Performed By: #### L [id number] ####Hard Tile Setter: SWATI RATLIFF ([id number])[facility])[address] [place] [address] Eosinophils (Bld) [#/Vol] 0.2 10*3/uL Normal 0.0-0.5 [facility] Comment on above: Performed By: #### L [id number] ####Hard Tile Setter: SWATI RATLIFF ([id number])[facility])[address] [place] [address] Eosinophils/100 WBC (Bld) 2.8 % Normal 0.0-6.0 [facility] Comment on above: Performed By: #### L [id number] ####Hard Tile Setter: SWATI RATLIFF ([id number])[facility])[address] [place] [address] Erythrocyte distribution width (RBC) [Ratio] 14.6 % Normal 11.5-15.0 [facility] Comment on above: Performed By: #### L [id number] ####Hard Tile Setter: SWATI RATLIFF ([id number])[facility])[address] [place] [address] Hematocrit (Bld) [Volume fraction] 36.8 % Low 40.0-52.0 [facility] Comment on above: Performed By: #### L [id number] ####Hard Tile Setter: SWATI RATLIFF ([id number])[facility])[address] [place] [address] Hemoglobin (Bld) [Mass/Vol] 11.4 g/dL Low 13.0-18.0 [facility] Comment on above: Performed By: #### L [id number] ####Hard Tile Setter: SWATI RATLIFF ([id number])[facility])[address] [place] [address] IMMATURE GRANS % 0.3 % Normal 0.0-2.0 [facility] Comment on above: Performed By: #### L [id number] ####Hard Tile Setter: SWATI RATLIFF ([id number])[facility])[address] [place] [address] IMMATURE GRANS ABSOLUTE 0.0 10*3/uL Normal <0.1 [facility] Comment on above: Performed By: #### L [id number] ####Hard Tile Setter: SWATI RATLIFF ([id number])[facility])[address] [place] [address] Lymphocytes (Bld) [#/Vol] 0.8 10*3/uL Low 1.0-4.3 [facility] Comment on above: Performed By: #### L [id number] ####Hard Tile Setter: SWATI RATLIFF ([id number])[address] Lymphocytes/100 WBC (Bld) 12.3 % Low 15.0-45.0 [facility] Comment on above: Performed By: #### L [id number] ####Hard Tile Setter: SWATI RATLIFF ([id number])[facility])[address] [place] [address] MCH (RBC) [Entitic mass] 29.7 pg Normal 26.0-34.0 [facility] Comment on above: Performed By: #### L [id number] ####Hard Tile Setter: SWATI RATLIFF ([id number])[facility])[address] [place] [address] MCHC 31.0 % Normal 30.5-36.0 [facility] Comment on above: Performed By: #### L [id number] ####Hard Tile Setter: SWATI RATLIFF ([id number])[facility])[address] [place] [address] MCV (RBC) [Entitic vol] 95.8 fL Normal 77.0-99.0 [facility] Comment on above: Performed By: #### L [id number] ####Hard Tile Setter: SWATI RATLIFF ([id number])[facility])[address] [place] [address] Monocytes (Bld) [#/Vol] 0.6 10*3/uL Normal 0.0-0.9 [facility] Comment on above: Performed By: #### L [id number] ####Hard Tile Setter: SWATI RATLIFF ([id number])[facility])[address] [place] [address] Monocytes/100 WBC (Bld) 9.4 % Normal 5.0-13.0 [facility] Comment on above: Performed By: #### L [id number] ####Hard Tile Setter: SWATI RATLIFF ([id number])[facility])[address] [place] [address] NEUTROPHILS ABSOLUTE 4.7 10*3/uL Normal 1.8-7.5 [facility] Comment on above: Performed By: #### L [id number] ####Hard Tile Setter: SWATI RATLIFF ([id number])[facility])[address] [place] [address] Neutrophils/100 WBC (Bld) 74.7 % Normal 38.0-82.0 [facility] Comment on above: Performed By: #### L [id number] ####Hard Tile Setter: SWATI RATLIFF ([id number])[facility])[address] [place] [address] NRBC 0.0 /100 WBCs Normal 0.0-2.0 [facility] Comment on above: Performed By: #### L [id number] ####Hard Tile Setter: SWATI RATLIFF ([id number])[facility])[address] [place] [address] Platelet mean volume (Bld) [Entitic vol] 10.2 fL Normal 9.0-12.7 [facility] Comment on above: Performed By: #### L [id number] ####Hard Tile Setter: SWATI RATLIFF ([id number])[facility] ([facility])[address] [place] [address] [place] Platelets (Bld) [#/Vol] 248 10*3/uL Normal 140-440 [facility] Comment on above: Performed By: #### L [id number] ####Hard Tile Setter: SWATI RATLIFF ([id number])[facility])[address] [place] [address] RBC (Bld) [#/Vol] 3.84 10*6/uL Low 4.40-5.90 [facility] Comment on above: Performed By: #### L [id number] ####Hard Tile Setter: SWATI RATLIFF ([id number])[facility])[address] [place] [address] WBC (Bld) [#/Vol] 6.4 10*3/uL Normal 3.6-10.7 [facility] Comment on above: Performed By: #### L [id number] ####Hard Tile Setter: SWATI RATLIFF ([id number])[facility])[address] [place] [address] Laboratory - Chemistry and C hemistry - challengeon 03-08-2024 Magnesium [Mass/Vol] 2.1 mg/dL 1.6 - 2 .3 mg/dL [facility] MAGNESIUMon 03-08-2024 Magnesium [Mass/Vol] 2.1 mg/dL Normal 1.6-2.3 [facility] Comment on above: Performed By: #### L AB103, LAB15 ####Hard Tile Setter: SWATI RATLIFF ([id number])[facility])[address] [place] [address] Magnesium [Mass/Vol]on 03-08 Interpretation and review of laboratory results Normal [facility] No Panel Informationon 03-08 [facility] Progress Noteon 03-08-2024 Progress Note Normal [facility] [place] 12-07-2023 [place] Patient Choice Patient Name: JAMES REYES Date of : 1955 Normal [facility] [place] 12-05-2023 [place] Normal [facility] [place] Discharge med list transmitted to [facility] via Careport per TCC request. Normal [facility] [place] Normal [facility] [place] Normal [facility] [place] Normal [facility] [place] Normal [facility] CBC W Auto Differential pane l (Bld)on 12-05-2023 Basophils (Bld) [#/Vol] 0.0 10*3/uL 0.0 - 0.2 10*3/uL [facility] Basophils/100 WBC (Bld) 0.7 % 0.0 - 2.0 % [facility] Eosinophils (Bld) [#/Vol] 0.2 10*3/uL 0.0 - 0.5 10*3/uL [facility] Eosinophils/100 WBC (Bld) 4.3 % 0.0 - 6.0 % [facility] Erythrocyte distribution width (RBC) [Ratio] 15.3 % High 11.5 - 15.0 % [facility] Hematocrit (Bld) [Volume fraction] 33.6 % Low 40.0 - 52.0 % [facility] Hemoglobin (Bld) [Mass/Vol] 10.5 g/dL Low 13.0 - 18.0 g/dL [facility] Immature granulocytes (Bld) [#/Vol] 0.0 10*3/uL NINF - 0.1 10*3/uL [facility] Immature granulocytes/100 WBC (Bld) 0.2 % 0.0 - 2.0 % [facility] Interpretation and review of laboratory results Abnormal [facility] Lymphocytes (Bld) [#/Vol] 0.9 10*3/uL Low 1.0 - 4.3 10*3/uL [facility] Lymphocytes/100 WBC (Bld) 19.5 % 15.0 - 45.0 % [facility] MCH (RBC) [Entitic mass] 30.1 pg 26. 0 - 34.0 pg [facility] MCHC (RBC) [Mass/Vol] 31.3 % 30.5 - 36.0 % [facility] MCV (RBC) [Entitic vol] 96.3 fL 77.0 - 99.0 fL [facility] Monocytes (Bld) [#/Vol] 0.5 10*3/uL 0.0 - 0.9 10*3/uL [facility] Monocytes/100 WBC (Bld) 12.1 % 5.0 - 13.0 % [facility] Neutrophils (Bld) [#/Vol] 2.8 10*3/uL 1.8 - 7.5 10*3/uL [facility] Neutrophils/100 WBC (Bld) 63.2 % 38.0 - 82.0 % [facility] Nucleated RBC/100 WBC (Bld) [Ratio] 0.0 % [facility] Platelet mean volume (Bld) [Entitic vol] 10.4 fL 9.0 - 12.7 fL [facility] Platelets (Bld) [#/Vol] 161 10*3/uL 140 - 440 10*3/uL [facility] RBC (Bld) [#/Vol] 3.49 10*6/uL Low 4.40 - 5.9 0 10*6/uL [facility] WBC (Bld) [#/Vol] 4.5 10*3/uL 3.6 - 10.7 10*3/uL [facility] CBC WITH AUTO DIFFERENTIALon 12-05-2023 Basophils (Bld) [#/Vol] 0.0 10*3/uL Normal 0.0-0.2 [facility] Comment on above: Performed By: #### L [id number] ####Hard Tile Setter: SWATI RATLIFF ([id number])[facility])[address] [place] [address] Basophils/100 WBC (Bld) 0.7 % Normal 0.0-2.0 [facility] Comment on above: Performed By: #### L [id number] ####Hard Tile Setter: SWATI RATLIFF ([id number])[facility])[address] [place] [address] [place] Eosinophils (Bld) [#/Vol] 0.2 10*3/uL Normal 0.0-0.5 [facility] Comment on above: Performed By: #### L [id number] ####Hard Tile Setter: SWATI RATLIFF ([id number])[facility])[address] [place] [address] [place] Eosinophils/100 WBC (Bld) 4.3 % Normal 0.0-6.0 [facility] Comment on above: Performed By: #### L [id number] ####Hard Tile Setter: SWATI RATLIFF ([id number])[facility])[address] [place] [address] Erythrocyte distribution width (RBC) [Ratio] 15.3 % High 11.5-15.0 [facility] Comment on above: Performed By: #### L [id number] ####Hard Tile Setter: SWATI RATLIFF ([id number])[facility])[address] [place] [address] Hematocrit (Bld) [Volume fraction] 33.6 % Low 40.0-52.0 [facility] Comment on above: Performed By: #### L [id number] ####Hard Tile Setter: SWATI RATLIFF ([id number])[address] Hemoglobin (Bld) [Mass/Vol] 10.5 g/dL Low 13.0-18.0 [facility] Comment on above: Performed By: #### L [id number] ####Hard Tile Setter: SWATI RATLIFF ([id number])[address] IMMATURE GRANS % 0.2 % Normal 0.0-2.0 [facility] Comment on above: Performed By: #### L [id number] ####Hard Tile Setter: SWATI RATLIFF ([id number])[address] IMMATURE GRANS ABSOLUTE 0.0 10*3/uL Normal <0.1 [facility] Comment on above: Performed By: #### L [id number] ####Hard Tile Setter: SWATI RATLIFF ([id number])[place] [address] [place] Lymphocytes (Bld) [#/Vol] 0.9 10*3/uL Low 1.0-4.3 [facility] Comment on above: Performed By: #### L [id number] ####Hard Tile Setter: SWATI RATLIFF ([id number])[facility])[address] [place] [address] Lymphocytes/100 WBC (Bld) 19.5 % Normal 15.0-45.0 [facility] Comment on above: Performed By: #### L [id number] ####Hard Tile Setter: SWATI RATLIFF ([id number])[facility])[address] [place] [address] MCH (RBC) [Entitic mass] 30.1 pg Normal 26.0-34.0 [facility] Comment on above: Performed By: #### L [id number] ####Hard Tile Setter: SWATI RATLIFF ([id number])[facility])[address] [place] [address] MCHC 31.3 % Normal 30.5-36.0 [facility] Comment on above: Performed By: #### L [id number] ####Hard Tile Setter: SWATI RATLIFF ([id number])[facility])[address] [place] [address] MCV (RBC) [Entitic vol] 96.3 fL Normal 77.0-99.0 [facility] Comment on above: Performed By: #### L [id number] ####Hard Tile Setter: SWATI RATLIFF ([id number])[facility])[address] [place] [address] Monocytes (Bld) [#/Vol] 0.5 10*3/uL Normal 0.0-0.9 [facility] Comment on above: Performed By: #### L [id number] ####Hard Tile Setter: SWATI RATLIFF ([id number])[facility])[address] [place] [address] Monocytes/100 WBC (Bld) 12.1 % Normal 5.0-13.0 [facility] Comment on above: Performed By: #### L [id number] ####Hard Tile Setter: SWATI RATLIFF ([id number])[facility])[address] [place] [address] NEUTROPHILS ABSOLUTE 2.8 10*3/uL Normal 1.8-7.5 [facility] Comment on above: Performed By: #### L [id number] ####Hard Tile Setter: SWATI RATLIFF ([id number])[facility])[address] [place] [address] Neutrophils/100 WBC (Bld) 63.2 % Normal 38.0-82.0 [facility] Comment on above: Performed By: #### L [id number] ####Hard Tile Setter: SWATI RATLIFF ([id number])[facility])[address] [place] [address] NRBC 0.0 /100 WBCs Normal 0.0-2.0 [facility] Comment on above: Performed By: #### L [id number] ####Hard Tile Setter: SWATI ARTLIFF ([id number])[facility])[address] [place] [address] Platelet mean volume (Bld) [Entitic vol] 10.4 fL Normal 9.0-12.7 [facility] Comment on above: Performed By: #### L [id number] ####Hard Tile Setter: SWATI RATLIFF ([id number])[facility])[address] [place] [address] Platelets (Bld) [#/Vol] 161 10*3/uL Normal 140-440 [facility] Comment on above: Performed By: #### L [id number] ####Hard Tile Setter: SWATI RATLIFF ([id number])[facility])[address] [place] [address] [place] RBC (Bld) [#/Vol] 3.49 10*6/uL Low 4.40-5.90 [facility] Comment on above: Performed By: #### L [id number] ####Hard Tile Setter: SWATI RATLIFF ([id number])[facility])[address] [place] [address] [place] WBC (Bld) [#/Vol] 4.5 10*3/uL Normal 3.6-10.7 [facility] Comment on above: Performed By: #### L [id number] ####Hard Tile Setter: SWATI RATLIFF ([id number])[facility])[address] [place] [address] COMPREHENSIVE METABOLIC PANE Cricket 12-05-2023 Albumin [Mass/Vol] 3.0 g/dL Low 3.5-5.0 [facility] Comment on above: Performed By: #### L [id number] ####Hard Tile Setter: SWATI RATLIFF ([id number])[facility])[address] [place] [address] ALP [Catalytic activity/Vol] 73 U/L Normal 38-126 [facility] Comment on above: Performed By: #### L [id number] ####Hard Tile Setter: SWATI RATLIFF ([id number])[facility])[address] [place] [address] ALT [Catalytic activity/Vol] 11 U/L Normal 0-49 [facility] Comment on above: Performed By: #### L [id number] ####Hard Tile Setter: SWATI RATLIFF ([id number])[facility])[address] [place] [address] Anion gap [Moles/Vol] 6 mmol/L Normal 3-13 [facility] Comment on above: Performed By: #### L [id number] ####Hard Tile Setter: SWATI RATLIFF ([id number])[facility])[address] [place] [address] AST [Catalytic activity/Vol] 14 U/L Low 15-46 [facility] Comment on above: Performed By: #### L [id number] ####Hard Tile Setter: SWATI RATLIFF ([id number])[facility])[address] [place] [address] Bilirubin [Mass/Vol] 0.3 mg/dL Normal 0.2-1.3 [facility] Comment on above: Performed By: #### L [id number] ####Hard Tile Setter: SWATI RATLIFF ([id number])[facility] [place] [address] Calcium [Mass/Vol] 8.6 mg/dL Normal 8.4-10.4 [facility] Comment on above: Performed By: #### L [id number] ####Hard Tile Setter: SWATI RATLIFF ([id number])[facility] [place] [address] [place] Chloride [Moles/Vol] 112 mmol/L High 98-107 [facility] Comment on above: Performed By: #### L AB17 ####Hard Tile Setter: SWATI RATLIFF ([id number])[facility] [place] [address] CO2 [Moles/Vol] 20 mmol/L Low 22-30 [facility] Comment on above: Performed By: #### L AB17 ####Hard Tile Setter: SWATI RATLIFF ([id number])[facility] [place] [address] Creatinine [Mass/Vol] 0.86 mg/dL Normal 0.66-1.[address] [facility] Comment on above: Performed By: #### L [id number] ####Hard Tile Setter: SWATI RATLIFF ([id number])[facility] [place] [address] GLOMERULAR FILTRATION RATE ML/MIN/1.73 SQ M.PREDICTED >90.0 Normal >60.0 [facility] Comment on above: Result Comment: Calc ulation based on the Chronic Kidney Disease Epidemiology Collaboration (CKD-EPI) equation refit without adjustment for race Performed By: #### L [id number] ####Hard Tile Setter: SWATI RATLIFF ([id number])[facility] ([facility])[address] [place] [address] [place] Glucose [Mass/Vol] 154 mg/dL High 70-100 [facility] Comment on above: Performed By: #### L [id number] ####Hard Tile Setter: SWATI RATLIFF ([id number])[facility] ([facility])[address] [place] [address] Potassium [Moles/Vol] 4.1 mmol/L Normal 3.5-5.[address] [facility] Comment on above: Performed By: #### L AB17 ####Hard Tile Setter: SWATI RATLIFF ([id number])[facility] ([facility])[address] [place] [address] Protein [Mass/Vol] 5.4 g/dL Low 6.3-8.2 [facility] Comment on above: Performed By: #### L AB17 ####Hard Tile Setter: SWATI RATLIFF ([id number])[facility] ([facility])[address] [place] [address] Sodium [Moles/Vol] 138 mmol/L Normal 135-145 [facility] Comment on above: Performed By: #### L AB17 ####Hard Tile Setter: SWATI RATLIFF ([id number])[facility] ([facility])[address] [place] [address] Urea nitrogen [Mass/Vol] 16 mg/dL Normal 9-20 [facility] Comment on above: Performed By: #### L AB17 ####Hard Tile Setter: SWATI RATLIFF ([id number])[facility] ([facility])[address] [place] [address] Comprehensive metabolic 1998 panelon 12-05-2023 Albumin [Mass/Vol] 3.0 g/dL Low 3.5 - 5.0 g/dL [facility] ALP [Catalytic activity/Vol] 73 U/L 38 - 126 U/L [facility] ALT [Catalytic activity/Vol] 11 U/L 0 - 49 U/L [facility] Anion gap [Moles/Vol] 6 mmol/L 3 - 13 mmol/L [facility] AST [Catalytic activity/Vol] 14 U/L Low 15 - 46 U/L [facility] Bilirubin [Mass/Vol] 0.3 mg/dL 0.2 - 1 .3 mg/dL [facility] Calcium [Mass/Vol] 8.6 mg/dL 8.4 - 10. 4 mg/dL [facility] Chloride [Moles/Vol] 112 mmol/L High 98 - 10 7 mmol/L [facility] CO2 [Moles/Vol] 20 mmol/L Low 22 - 30 mmol/L [facility] Creatinine [Mass/Vol] 0.86 mg/dL 0.66 - 1.25 mg/dL [facility] GFR/1.73 sq M.predicted (S/P/Bld) [Vol rate/Area] - PINF [facility] Comment on above: Calculation based on the Chronic Kidney Disease Epidemiology Collaboration (CKD-EPI) equation refit without adjustment for race Glucose [Mass/Vol] 154 mg/dL High 70 - 100 mg/dL [facility] Interpretation and review of laboratory results Abnormal [facility] Potassium [Moles/Vol] 4.1 mmol/L 3.5 - 5.1 mmol/L [facility] Protein [Mass/Vol] 5.4 g/dL Low 6.3 - 8.2 g/dL [facility] Sodium [Moles/Vol] 138 mmol/L 135 - 145 mmol/L [facility] Urea nitrogen [Mass/Vol] 16 mg/dL 9 - 20 mg/dL [facility] IDNon 12-05-2023 IDN Normal [facility] Laboratory - Chemistry and C hemistry - challengeon 12-05-2023 Glucose [Mass/Vol] 241 mg/dL High 70 - 100 mg/dL [facility] Glucose [Mass/Vol] 93 mg/dL 70 - 100 mg/dL [facility] No Panel Informationon 12-04 Interpretation and review of laboratory results Abnormal [facility] Performed by: [facility], [address] [place], [place] [id number] CLIA ID: [id number] [facility] Interpretation and review of laboratory results Normal [facility] Performed by: [facility], [address] [place] [address] CLIA ID: [id number] [facility] Nursing Noteon 12-05-2023 Nursing Note Normal [facility] Nursing Note Report called to Juan Normal [facility] Nursing Note Patient is making inappropriate comments to nursing staff, after having a male nurse assigned he requested a new female nurse because he was not "pretty". Patient was reminded that this is a professional environment and this behavior is not appropriate. Normal [facility] Progress Noteon 12-05-2023 Progress Note PHYSICAL THERAPY [facility] Name/MRN: James Reyes ([id number]) Date: 12/05/2023 Attempted treatment at 1201, pt sitting EOB, stating that he is going to [facility] later today, politely declining therapy at this time. Benjie Torres, PT Normal [facility] CARECOORDon 12-04-2023 CARECOORD Reviewed with TCC. Completed PAS in HENS, will submit for LOC once CRUZ completed. Normal [facility] CARECOORD Normal [facility] CBC W Auto Differential pane l (Bld)Ordered By: Edie Askew on 12-04-2023 Basophils (Bld) [#/Vol] 0.0 10*3/uL 0.0 - 0.2 10*3/uL [email or web address] Basophils/100 WBC (Bld) 0.5 % 0.0 - 2.0 % [email or web address] Eosinophils (Bld) [#/Vol] 0.2 10*3/uL 0.0 - 0.5 10*3/uL [email or web address] Eosinophils/100 WBC (Bld) 4.7 % 0.0 - 6.0 % [email or web address] Erythrocyte distribution width (RBC) [Ratio] 15.5 % High 11.5 - 15.0 % [email or web address] Hematocrit (Bld) [Volume fraction] 33.3 % Low 40.0 - 52.0 % [email or web address] Hemoglobin (Bld) [Mass/Vol] 10.2 g/dL Low 13.0 - 18.0 g/dL [email or web address] Immature granulocytes (Bld) [#/Vol] 0.0 10*3/uL NINF - 0.1 10*3/uL [email or web address] Immature granulocytes/100 WBC (Bld) 0.0 % 0.0 - 2.0 % [email or web address] Interpretation and review of laboratory results Abnormal [email or web address] Lymphocytes (Bld) [#/Vol] 0.8 10*3/uL Low 1.0 - 4.3 10*3/uL [email or web address] Lymphocytes/100 WBC (Bld) 20.6 % 15.0 - 45.0 % [email or web address] MCH (RBC) [Entitic mass] 29.7 pg 26. 0 - 34.0 pg [facility] MCHC (RBC) [Mass/Vol] 30.6 % 30.5 - 36.0 % [facility] MCV (RBC) [Entitic vol] 97.1 fL 77.0 - 99.0 fL [facility] Monocytes (Bld) [#/Vol] 0.5 10*3/uL 0.0 - 0.9 10*3/uL [facility] Monocytes/100 WBC (Bld) 11.8 % 5.0 - 13.0 % [facility] Neutrophils (Bld) [#/Vol] 2.5 10*3/uL 1.8 - 7.5 10*3/uL [facility] Neutrophils/100 WBC (Bld) 62.4 % 38.0 - 82.0 % [facility] Nucleated RBC/100 WBC (Bld) [Ratio] 0.0 % [facility] Platelet mean volume (Bld) [Entitic vol] 10.7 fL 9.0 - 12.7 fL [facility] Platelets (Bld) [#/Vol] 167 10*3/uL 140 - 440 10*3/uL [facility] RBC (Bld) [#/Vol] 3.43 10*6/uL Low 4.40 - 5.9 0 10*6/uL [facility] WBC (Bld) [#/Vol] 4.1 10*3/uL 3.6 - 10.7 10*3/uL [facility] CBC WITH AUTO DIFFERENTIALon 12-04-2023 Basophils (Bld) [#/Vol] 0.0 10*3/uL Normal 0.0-0.2 [facility] Comment on above: Performed By: #### L [id number] ####Hard Tile Setter: SWATI RATLIFF ([id number])[facility] ([facility])[address] [place] [address] Basophils/100 WBC (Bld) 0.5 % Normal 0.0-2.0 [facility] Comment on above: Performed By: #### L [id number] ####Hard Tile Setter: SWATI RATLIFF ([id number])[facility] ([facility])[address] [place] [address] Eosinophils (Bld) [#/Vol] 0.2 10*3/uL Normal 0.0-0.5 [facility] Comment on above: Performed By: #### L [id number] ####Hard Tile Setter: SWATI RATLIFF ([id number])[facility])[address] [place] [address] Eosinophils/100 WBC (Bld) 4.7 % Normal 0.0-6.0 [facility] Comment on above: Performed By: #### L [id number] ####Hard Tile Setter: SWATI RATLIFF ([id number])[facility])[address] [place] [address] Erythrocyte distribution width (RBC) [Ratio] 15.5 % High 11.5-15.0 [facility] Comment on above: Performed By: #### L [id number] ####Hard Tile Setter: SWATI RATLIFF ([id number])[address] Hematocrit (Bld) [Volume fraction] 33.3 % Low 40.0-52.0 [facility] Comment on above: Performed By: #### L [id number] ####Hard Tile Setter: SWATI RATLIFF ([id number])[address] Hemoglobin (Bld) [Mass/Vol] 10.2 g/dL Low 13.0-18.0 [facility] Comment on above: Performed By: #### L [id number] ####Hard Tile Setter: SWATI RATLIFF ([id number])[facility])[address] [place] [address] IMMATURE GRANS % 0.0 % Normal 0.0-2.0 [facility] Comment on above: Performed By: #### L [id number] ####Hard Tile Setter: SWATI RATLIFF ([id number])[address] IMMATURE GRANS ABSOLUTE 0.0 10*3/uL Normal <0.1 [facility] Comment on above: Performed By: #### L [id number] ####Hard Tile Setter: SWATI RATLIFF ([id number])[facility])[address] [place] [address] Lymphocytes (Bld) [#/Vol] 0.8 10*3/uL Low 1.0-4.3 [facility] Comment on above: Performed By: #### L [id number] ####Hard Tile Setter: SWATI RATLIFF ([id number])[facility])[address] [place] [address] Lymphocytes/100 WBC (Bld) 20.6 % Normal 15.0-45.0 [facility] Comment on above: Performed By: #### L [id number] ####Hard Tile Setter: SWATI RATLIFF ([id number])[address] MCH (RBC) [Entitic mass] 29.7 pg Normal 26.0-34.0 [facility] Comment on above: Performed By: #### L [id number] ####Hard Tile Setter: SWATI RATLIFF ([id number])[facility])[address] [place] [address] MCHC 30.6 % Normal 30.5-36.0 [facility] Comment on above: Performed By: #### L [id number] ####Hard Tile Setter: SWATI RATLIFF ([id number])[facility])[address] [place] [address] MCV (RBC) [Entitic vol] 97.1 fL Normal 77.0-99.0 [facility] Comment on above: Performed By: #### L [id number] ####Hard Tile Setter: SWATI RATLIFF ([id number])[facility])[address] [place] [address] Monocytes (Bld) [#/Vol] 0.5 10*3/uL Normal 0.0-0.9 [facility] Comment on above: Performed By: #### L [id number] ####Hard Tile Setter: SWATI RATLIFF ([id number])[facility])[address] [place] [address] Monocytes/100 WBC (Bld) 11.8 % Normal 5.0-13.0 [facility] Comment on above: Performed By: #### L [id number] ####Hard Tile Setter: SWATI RATLIFF ([id number])[facility])[address] [place] [address] NEUTROPHILS ABSOLUTE 2.5 10*3/uL Normal 1.8-7.5 [facility] Comment on above: Performed By: #### L [id number] ####Hard Tile Setter: SWATI RATLIFF ([id number])[facility])[address] [place] [address] Neutrophils/100 WBC (Bld) 62.4 % Normal 38.0-82.0 [facility] Comment on above: Performed By: #### L [id number] ####Hard Tile Setter: SWATI ARTLIFF ([id number])[facility])[address] [place] [address] NRBC 0.0 /100 WBCs Normal 0.0-2.0 [facility] Comment on above: Performed By: #### L [id number] ####Hard Tile Setter: SWATI RATLIFF ([id number])[facility])[address] [place] [address] Platelet mean volume (Bld) [Entitic vol] 10.7 fL Normal 9.0-12.7 [facility] Comment on above: Performed By: #### L [id number] ####Hard Tile Setter: SWATI RATLIFF ([id number])[facility])[address] [place] [address] [place] Platelets (Bld) [#/Vol] 167 10*3/uL Normal 140-440 [facility] Comment on above: Performed By: #### L [id number] ####Hard Tile Setter: SWATI RATLIFF ([id number])[facility])[address] [place] [address] RBC (Bld) [#/Vol] 3.43 10*6/uL Low 4.40-5.90 [facility] Comment on above: Performed By: #### L [id number] ####Hard Tile Setter: SWATI RATLIFF ([id number])[facility])[address] [place] [address] WBC (Bld) [#/Vol] 4.1 10*3/uL Normal 3.6-10.7 [facility] Comment on above: Performed By: #### L [id number] ####Hard Tile Setter: SWATI RATLIFF ([id number])[facility])[address] [place] [address] COMPREHENSIVE METABOLIC PANE [employer] 12-04-2023 Albumin [Mass/Vol] 3.0 g/dL Low 3.5-5.0 [facility] Comment on above: Performed By: #### L [id number] ####Hard Tile Setter: SWATI RATLIFF ([id number])[facility])[address] [place] [address] ALP [Catalytic activity/Vol] 70 U/L Normal 38-126 [facility] Comment on above: Performed By: #### L [id number] ####Hard Tile Setter: SWATI RATLIFF ([id number])[facility])[address] [place] [address] ALT [Catalytic activity/Vol] 11 U/L Normal 0-49 [facility] Comment on above: Performed By: #### L [id number] ####Hard Tile Setter: SWATI RATLIFF ([id number])[facility])[address] [place] [address] Anion gap [Moles/Vol] 5 mmol/L Normal 3-13 [facility] Comment on above: Performed By: #### L [id number] ####Hard Tile Setter: SWATI RATLIFF ([id number])[facility])[address] [place] [address] AST [Catalytic activity/Vol] 14 U/L Low 15-46 [facility] Comment on above: Performed By: #### L [id number] ####Hard Tile Setter: SWATI RATLIFF ([id number])[facility] [place] [address] Bilirubin [Mass/Vol] 0.4 mg/dL Normal 0.2-1.3 [facility] Comment on above: Performed By: #### L [id number] ####Hard Tile Setter: SWATI RATLIFF ([id number])[facility])[address] [place] [address] Calcium [Mass/Vol] 8.6 mg/dL Normal 8.4-10.4 [facility] Comment on above: Performed By: #### L [id number] ####Hard Tile Setter: SWATI RATLIFF ([id number])[facility])[address] [place] [address] Chloride [Moles/Vol] 114 mmol/L High 98-107 [facility] Comment on above: Performed By: #### L [id number] ####Hard Tile Setter: SWATI RATLIFF ([id number])[facility])[address] [place] [address] CO2 [Moles/Vol] 19 mmol/L Low 22-30 [facility] Comment on above: Performed By: #### L [id number] ####Hard Tile Setter: SWATI RATLIFF ([id number])[facility])[address] [place] [address] Creatinine [Mass/Vol] 0.93 mg/dL Normal 0.66-1.[address] [facility] Comment on above: Performed By: #### L [id number] ####Hard Tile Setter: SWATI RATLIFF ([id number])[facility])[address] [place] [address] GLOMERULAR FILTRATION RATE ML/MIN/1.73 SQ M.PREDICTED 90.0 mL/min/1.73m*2 Normal >60.0 [facility] Comment on above: Result Comment: Calc ulation based on the Chronic Kidney Disease Epidemiology Collaboration (CKD-EPI) equation refit without adjustment for race Performed By: #### L [id number] ####Hard Tile Setter: SWATI RATLIFF ([id number])[facility] [place] [address] Glucose [Mass/Vol] 90 mg/dL Normal 70-100 [facility] Comment on above: Performed By: #### L [id number] ####Hard Tile Setter: SWATI RATLIFF ([id number])[facility] [place] [address] Potassium [Moles/Vol] 4.2 mmol/L Normal 3.5-5.[address] [facility] Comment on above: Performed By: #### L [id number] ####Hard Tile Setter: SWATI RATLIFF ([id number])[facility])[address] [place] [address] Protein [Mass/Vol] 5.4 g/dL Low 6.3-8.2 [facility] Comment on above: Performed By: #### L [id number] ####Hard Tile Setter: SWATI RATLIFF ([id number])[facility])[address] [place] [address] Sodium [Moles/Vol] 138 mmol/L Normal 135-145 [facility] Comment on above: Performed By: #### L [id number] ####Hard Tile Setter: SWATI RATLIFF ([id number])[facility])[address] [place] [address] Urea nitrogen [Mass/Vol] 18 mg/dL Normal 9-20 [facility] Comment on above: Performed By: #### L [id number] ####Hard Tile Setter: SWATI RATLIFF ([id number])[facility])[address] [place] [address] Comprehensive metabolic 1998 panelon 12-04-2023 Albumin [Mass/Vol] 3.0 g/dL Low 3.5 - 5.0 g/dL [facility] ALP [Catalytic activity/Vol] 70 U/L 38 - 126 U/L [facility] ALT [Catalytic activity/Vol] 11 U/L 0 - 49 U/L [facility] Anion gap [Moles/Vol] 5 mmol/L 3 - 13 mmol/L [facility] AST [Catalytic activity/Vol] 14 U/L Low 15 - 46 U/L [facility] Bilirubin [Mass/Vol] 0.4 mg/dL 0.2 - 1 .3 mg/dL [facility] Calcium [Mass/Vol] 8.6 mg/dL 8.4 - 10. 4 mg/dL [facility] Chloride [Moles/Vol] 114 mmol/L High 98 - 10 7 mmol/L [facility] CO2 [Moles/Vol] 19 mmol/L Low 22 - 30 mmol/L [facility] Creatinine [Mass/Vol] 0.93 mg/dL 0.66 - 1.25 mg/dL [facility] GFR/1.73 sq M.predicted (S/P/Bld) [Vol rate/Area] 90.0 mL/min - PINF [facility] Comment on above: Calculation based on the Chronic Kidney Disease Epidemiology Collaboration (CKD-EPI) equation refit without adjustment for race Glucose [Mass/Vol] 90 mg/dL 70 - 100 mg/dL [facility] Interpretation and review of laboratory results Abnormal [facility] Potassium [Moles/Vol] 4.2 mmol/L 3.5 - 5.1 mmol/L [facility] Protein [Mass/Vol] 5.4 g/dL Low 6.3 - 8.2 g/dL [facility] Sodium [Moles/Vol] 138 mmol/L 135 - 145 mmol/L [facility] Urea nitrogen [Mass/Vol] 18 mg/dL 9 - 20 mg/dL [facility] - Chemistry and C hemistry - challengeon 12-04-2023 Glucose [Mass/Vol] 190 mg/dL High 70 - 100 mg/dL [facility] Glucose [Mass/Vol] 142 mg/dL High 70 - 100 mg/dL [facility] Glucose [Mass/Vol] 113 mg/dL High 70 - 100 mg/dL [facility] Glucose [Mass/Vol] 118 mg/dL High 70 - 100 mg/dL [facility] Glucose [Mass/Vol] 107 mg/dL High 70 - 100 mg/dL [facility] No Panel Informationon 12-03 Interpretation and review of laboratory results Abnormal [facility]formed by: [facility], [address] [place], [place] [id number] CLIA ID: [id number] [facility] Interpretation and review of laboratory results Abnormal [facility] Performed by: [facility], [address] [place] [address] CLIA ID: [id number] [facility] Interpretation and review of laboratory results Abnormal [facility] Performed by: [facility], [address] [place] [address], [facility] [address] CLIA ID: [id number] [facility] Interpretation and review of laboratory results Abnormal [facility] Performed by: [facility], [address] [place] [address] CLIA ID: [id number] [facility] Interpretation and review of laboratory results Abnormal [facility] Performed by: [facility], [address] [place] [address], [facility] [address] CLIA ID: [id number] [facility] Nursing Noteon 12-04-2023 Nursing Note Normal [facility] Progress Noteon 12-04-2023 Progress Note PHYSICAL THERAPY [facility] Name/MRN: James Reyes ([id number]) Date: 12/04/2023 Attempted PT. Pt was sleeping soundly. Will re-attempt PT at later time/date as schedule permits. Heather Berkowitz, WARPER FIXER Normal [facility] Progress Note Normal [facility] Progress Note Normal [facility] Urinalysis complete panel (U )Ordered By: Arnaldo David on 12-04-2023 Bacteria LM.HPF (Urine sed) [#/Area] Loaded Abnormal Negative /HPF [facility] Bilirubin Ql (U) Negative Negative mg/dL [facility] Clarity (U) Turbid Abnormal Clear [facility] Color (U) Yellow Lt. Yellow [facility] Epithelial cells.squamous LM.HPF (Urine sed) [#/Area] 0-2 [facility] Glucose Ql (U) 100 mg/dL Abnormal Normal (<70) [facility] Hemoglobin Ql (U) 0.06 mg/dL Abnormal Negative [facility] Hyaline casts Auto (Urine sed) [#/Area] Negative Negative /LPF [facility] Interpretation and review of laboratory results Abnormal [facility] Ketones (U) [Mass/Vol] Negative Negat abdulkadir mg/dL [facility] Leukocyte clumps LM.HPF (Urine sed) [#/Area] Many Abnormal Negative /HPF [facility] Leukocyte esterase Test strip Ql (U) 500 Abnormal Negative Poornima/uL [facility] Mucus LM.HPF (Urine sed) [#/Area] Few Negative /LPF [facility] Nitrite Ql (U) Positive Abnormal Negative [facility] th pH (U) 8.0 [pH] 5.0 - 8.0 pH [facility] Protein (U) [Mass/Vol] 30 mg/dL Abnormal Negative [facility] RBC LM.HPF (Urine sed) [#/Area] 11-25 Abnormal [facility] Specific gravity (U) [Rel density] 1.012 1.005 - 1.030 [facility] Triple phosphate crystals LM.HPF (Urine sed) [#/Area] Many Abnormal Negative /HPF [facility] Urobilinogen (U) [Mass/Vol] Normal Normal (0-1) mg/dL [facility] WBC LM.HPF (Urine sed) [#/Area] /[HPF] Abnormal [facility] Confirmed by Light Microscopy [facility] CBC W Auto Differential pane l (Bld)on 12-03-2023 Basophils (Bld) [#/Vol] 0.0 10*3/uL 0.0 - 0.2 10*3/uL [facility] Basophils/100 WBC (Bld) 0.5 % 0.0 - 2.0 % [facility] Eosinophils (Bld) [#/Vol] 0.2 10*3/uL 0.0 - 0.5 10*3/uL [facility] Eosinophils/100 WBC (Bld) 4.5 % 0.0 - 6.0 % [facility] Erythrocyte distribution width (RBC) [Ratio] 15.4 % High 11.5 - 15.0 % [facility] Hematocrit (Bld) [Volume fraction] 32.5 % Low 40.0 - 52.0 % [facility] Hemoglobin (Bld) [Mass/Vol] 10.2 g/dL Low 13.0 - 18.0 g/dL [facility] Immature granulocytes (Bld) [#/Vol] 0.0 10*3/uL NINF - 0.1 10*3/uL [facility] Immature granulocytes/100 WBC (Bld) 0.2 % 0.0 - 2.0 % [facility] Interpretation and review of laboratory results Abnormal [facility] Lymphocytes (Bld) [#/Vol] 0.9 10*3/uL Low 1.0 - 4.3 10*3/uL [facility] Lymphocytes/100 WBC (Bld) 20.9 % 15.0 - 45.0 % [facility] MCH (RBC) [Entitic mass] 30.4 pg 26. 0 - 34.0 pg [facility] MCHC (RBC) [Mass/Vol] 31.4 % 30.5 - 36.0 % [facility] MCV (RBC) [Entitic vol] 96.7 fL 77.0 - 99.0 fL [facility] Monocytes (Bld) [#/Vol] 0.5 10*3/uL 0.0 - 0.9 10*3/uL [facility] Monocytes/100 WBC (Bld) 10.9 % 5.0 - 13.0 % [facility] Neutrophils (Bld) [#/Vol] 2.7 10*3/uL 1.8 - 7.5 10*3/uL [facility] Neutrophils/100 WBC (Bld) 63.0 % 38.0 - 82.0 % [facility] Nucleated RBC/100 WBC (Bld) [Ratio] 0.0 % [facility] Platelet mean volume (Bld) [Entitic vol] 10.5 fL 9.0 - 12.7 fL [facility] Platelets (Bld) [#/Vol] 165 10*3/uL 140 - 440 10*3/uL [facility] RBC (Bld) [#/Vol] 3.36 10*6/uL Low 4.40 - 5.9 0 10*6/uL [facility] WBC (Bld) [#/Vol] 4.2 10*3/uL 3.6 - 10.7 10*3/uL [facility] CBC WITH AUTO DIFFERENTIALon 12-03-2023 Basophils (Bld) [#/Vol] 0.0 10*3/uL Normal 0.0-0.2 [facility] Comment on above: Performed By: #### L [id number] ####Hard Tile Setter: SWATI RATLIFF ([id number])[facility] ([address] Basophils/100 WBC (Bld) 0.5 % Normal 0.0-2.0 [facility] Comment on above: Performed By: #### L [id number] ####Hard Tile Setter: SWATI RATLIFF ([id number])[facility])[address] [place] [address] Eosinophils (Bld) [#/Vol] 0.2 10*3/uL Normal 0.0-0.5 [facility] Comment on above: Performed By: #### L [id number] ####Hard Tile Setter: SWATI RATLIFF ([id number])[facility])[address] [place] [address] Eosinophils/100 WBC (Bld) 4.5 % Normal 0.0-6.0 [facility] Comment on above: Performed By: #### L [id number] ####Hard Tile Setter: SWATI RATLIFF ([id number])[address] Erythrocyte distribution width (RBC) [Ratio] 15.4 % High 11.5-15.0 [facility] Comment on above: Performed By: #### L [id number] ####Hard Tile Setter: SWATI RATLIFF ([id number])[address] Hematocrit (Bld) [Volume fraction] 32.5 % Low 40.0-52.0 [facility] Comment on above: Performed By: #### L [id number] ####Hard Tile Setter: SAWTI RATLIFF ([id number])[address] Hemoglobin (Bld) [Mass/Vol] 10.2 g/dL Low 13.0-18.0 [facility] Comment on above: Performed By: #### L [id number] ####Hard Tile Setter: SWATI RATLIFF ([id number])[address] IMMATURE GRANS % 0.2 % Normal 0.0-2.0 [facility] Comment on above: Performed By: #### L [id number] ####Hard Tile Setter: SWATI RATLIFF ([id number])[facility])[address] [place] [address] IMMATURE GRANS ABSOLUTE 0.0 10*3/uL Normal <0.1 [facility] Comment on above: Performed By: #### L [id number] ####Hard Tile Setter: SWATI RATLIFF ([id number])[facility])[address] [place] [address] Lymphocytes (Bld) [#/Vol] 0.9 10*3/uL Low 1.0-4.3 [facility] Comment on above: Performed By: #### L [id number] ####Hard Tile Setter: SWATI RATLIFF ([id number])[facility])[address] [place] [address] Lymphocytes/100 WBC (Bld) 20.9 % Normal 15.0-45.0 [facility] Comment on above: Performed By: #### L [id number] ####Hard Tile Setter: SWATI RATLIFF ([id number])[facility])[address] [place] [address] MCH (RBC) [Entitic mass] 30.4 pg Normal 26.0-34.0 [facility] Comment on above: Performed By: #### L [id number] ####Hard Tile Setter: SWATI RATLIFF ([id number])[facility])[address] [place] [address] MCHC 31.4 % Normal 30.5-36.0 [facility] Comment on above: Performed By: #### L [id number] ####Hard Tile Setter: SWATI RATLIFF ([id number])[facility])[address] [place] [address] MCV (RBC) [Entitic vol] 96.7 fL Normal 77.0-99.0 [facility] Comment on above: Performed By: #### L [id number] ####Hard Tile Setter: SWATI RATLIFF ([id number])[facility])[address] [place] [address] Monocytes (Bld) [#/Vol] 0.5 10*3/uL Normal 0.0-0.9 [facility] Comment on above: Performed By: #### L [id number] ####Hard Tile Setter: SWATI RATLIFF ([id number])[facility])[address] [place] [address] Monocytes/100 WBC (Bld) 10.9 % Normal 5.0-13.0 [facility] Comment on above: Performed By: #### L [id number] ####Hard Tile Setter: SWATI RATLIFF ([id number])[facility])[address] [place] [address] NEUTROPHILS ABSOLUTE 2.7 10*3/uL Normal 1.8-7.5 [facility] Comment on above: Performed By: #### L [id number] ####Hard Tile Setter: SWATI RATLIFF ([id number])[facility])[address] [place] [address] Neutrophils/100 WBC (Bld) 63.0 % Normal 38.0-82.0 [facility] Comment on above: Performed By: #### L [id number] ####Hard Tile Setter: SWATI RATLIFF ([id number])[facility])[address] [place] [address] NRBC 0.0 /100 WBCs Normal 0.0-2.0 [facility] Comment on above: Performed By: #### L [id number] ####Hard Tile Setter: SWATI RATLIFF ([id number])[facility])[address] [place] [address] Platelet mean volume (Bld) [Entitic vol] 10.5 fL Normal 9.0-12.7 [facility] Comment on above: Performed By: #### L [id number] ####Hard Tile Setter: SWATI RATLIFF ([id number])[facility])[address] [place] [address] Platelets (Bld) [#/Vol] 165 10*3/uL Normal 140-440 [facility] Comment on above: Performed By: #### L [id number] ####Hard Tile Setter: SWATI RATLIFF ([id number])[facility])[address] [place] [address] RBC (Bld) [#/Vol] 3.36 10*6/uL Low 4.40-5.90 [facility] Comment on above: Performed By: #### L [id number] ####Hard Tile Setter: SWATI RATLIFF ([id number])[facility])[address] [place] [address] WBC (Bld) [#/Vol] 4.2 10*3/uL Normal 3.6-10.7 [facility] Comment on above: Performed By: #### L [id number] ####Hard Tile Setter: SWATI RATLIFF ([id number])[facility])[address] [place] [address] COMPLETE URINALYSISon 2023 BACTERIA (#/HPF) IN URINE Loaded Abnormal Negative [facility] Comment on above: Performed By: #### L [id number] ####Hard Tile Setter: SWATI RATLIFF ([id number])[facility])[address] [place] [address] BILIRUBIN, TOTAL PRESENCE IN URINE Negative Normal Negative [facility] Comment on above: Performed By: #### L [id number] ####Hard Tile Setter: SWATI RATLIFF ([id number])[facility])[address] [place] [address] Clarity (U) Turbid Abnormal Clear [facility] Comment on above: Performed By: #### L [id number] ####Hard Tile Setter: SWATI RATLIFF ([id number])[facility])[address] [place] [address] Color (U) Yellow Normal Lt. Yellow [facility] Comment on above: Performed By: #### L [id number] ####Hard Tile Setter: SWATI RATLIFF ([id number])[facility])[address] [place] [address] Glucose (U) [Mass/Vol] 100 mg/dL Abnormal Janice l (<70) [facility] Comment on above: Performed By: #### L [id number] ####Hard Tile Setter: SWATI RATLIFF ([id number])[facility])[address] [place] [address] HEMOGLOBIN PRESENCE IN URINE 0.06 mg/dL Abnormal Negative [facility] Comment on above: Performed By: #### L [id number] ####Hard Tile Setter: SWATI RATLIFF ([id number])[facility])[address] [place] [address] HYALINE CASTS (#/LPF) IN URINE SEDIMENT BY MICROSCOPY Negative Normal Negative [facility] Comment on above: Performed By: #### L [id number] ####Hard Tile Setter: SWATI RATLIFF ([id number])[facility])[address] [place] [address] Ketones Ql (U) Negative Normal Negative [facility] Comment on above: Performed By: #### L [id number] ####Hard Tile Setter: SWATI RATLIFF ([id number])[facility])[address] [place] [address] LEUKOCYTE ESTERASE PRESENCE IN URINE BY TEST STRIP 500 Poornima/uL Abnormal Negative [facility] Comment on above: Performed By: #### L [id number] ####Hard Tile Setter: SWATI RATLIFF ([id number])[facility])[address] [place] [address] MUCUS (#/LPF) IN URINE SEDIMENT Few Normal Negative [facility] Comment on above: Performed By: #### L [id number] ####Hard Tile Setter: SWATI RATLIFF ([id number])[facility])[address] [place] [address] NITRITE PRESENCE IN URINE Positive Abnormal Negative [facility] Comment on above: Performed By: #### L [id number] ####Hard Tile Setter: SWATI RATLIFF ([id number])[facility])[address] [place] [address] pH (U) 8.0 [pH] Normal 5.0-8.0 [facility] Comment on above: Performed By: #### L [id number] ####Hard Tile Setter: SWATI RATLIFF ([id number])[facility])[address] [place] [address] Protein (U) [Mass/Vol] 30 mg/dL Abnormal Negative [facility] Comment on above: Performed By: #### L [id number] ####Hard Tile Setter: SWATI RATLIFF ([id number])[facility])[address] [place] [address] RBC (#/HPF) IN URINE SEDIMENT 11-25 Abnormal 0-2 [facility] Comment on above: Performed By: #### L [id number] ####Hard Tile Setter: SWATI RATLIFF ([id number])[facility])[address] [place] [address] Specific gravity (U) [Rel density] 1.012 Normal 1.005-1.030 [facility] Comment on above: Result Comment: TAVO Hernandez COMMENTS:Confirmed by Light Microscopy Performed By: #### L [id number] ####Hard Tile Setter: SWATI RATLIFF ([id number])[facility])[address] [place] [address] SQUAMOUS EPITHELIAL CELLS (#/HPF) IN URINE SEDIMENT 0-2 Normal 3-5 [facility] Comment on above: Performed By: #### L [id number] ####Hard Tile Setter: SWATI RATLIFF ([id number])[facility])[address] [place] [address] TRIPLE PHOSPHATE CRYSTALS (#/HPF) IN URINE Many Abnormal Negative [facility] Comment on above: Performed By: #### L [id number] ####Hard Tile Setter: SWATI RATLIFF ([id number])[facility])[address] [place] [address] UROBILINOGEN (MG/DL) IN URINE Normal Normal Normal (0-1) [facility] Comment on above: Performed By: #### L [id number] ####Hard Tile Setter: SWATI RATLIFF ([id number])[facility])[address] [place] [address] WBC (LEUKOCYTE) (#/HPF) IN URINE SEDIMENT >100 Abnormal 0-5 [facility] Comment on above: Performed By: #### L [id number] ####Hard Tile Setter: SWATI RATLIFF ([id number])[facility])[address] [place] [address] WBC (LEUKOCYTE) CLUMPS (#/HPF) IN URINE SEDIMENT Many Abnormal Negative [facility] Comment on above: Performed By: #### L [id number] ####Hard Tile Setter: SWATI RATLIFF ([id number])[facility])[address] [place] [address] COMPREHENSIVE METABOLIC PANE Cricket 12-03-2023 Albumin [Mass/Vol] 2.9 g/dL Low 3.5-5.0 [facility] Comment on above: Performed By: #### L [id number] ####Hard Tile Setter: SWATI RATLIFF ([id number])[facility])[address] [place] [address] ALP [Catalytic activity/Vol] 71 U/L Normal 38-126 [facility] Comment on above: Performed By: #### L AB17 ####Hard Tile Setter: SWATI RATLIFF ([id number])[facility])[address] [place] [address] ALT [Catalytic activity/Vol] 12 U/L Normal 0-49 [facility] Comment on above: Performed By: #### L [id number] ####Hard Tile Setter: SWATI RATLIFF ([id number])[facility])[address] [place] [address] Anion gap [Moles/Vol] 5 mmol/L Normal 3-13 [facility] Comment on above: Performed By: #### L AB17 ####Hard Tile Setter: SWATI RATLIFF ([id number])[facility])[address] [place] [address] AST [Catalytic activity/Vol] 13 U/L Low 15-46 [facility] Comment on above: Performed By: #### L AB17 ####Hard Tile Setter: SWATI RATLIFF ([id number])[facility])[address] [place] [address] Bilirubin [Mass/Vol] 0.3 mg/dL Normal 0.2-1.3 [facility] Comment on above: Performed By: #### L AB17 ####Hard Tile Setter: SWATI RATLIFF ([id number])[facility])[address] [place] [address] Calcium [Mass/Vol] 8.4 mg/dL Normal 8.4-10.4 [facility] Comment on above: Performed By: #### L AB17 ####Hard Tile Setter: SWATI RATLIFF ([id number])[facility])[address] [place] [address] Chloride [Moles/Vol] 114 mmol/L High 98-107 [facility] Comment on above: Performed By: #### L [id number] ####Hard Tile Setter: SWATI RATLIFF ([id number])[facility])[address] [place] [address] CO2 [Moles/Vol] 20 mmol/L Low 22-30 [facility] Comment on above: Performed By: #### L AB17 ####Hard Tile Setter: SWATI RATLIFF ([id number])[facility])[address] [place] [address] Creatinine [Mass/Vol] 0.93 mg/dL Normal 0.66-1.[address] [facility] Comment on above: Performed By: #### L [id number] ####Hard Tile Setter: SWATI RATLIFF ([id number])[facility])[address] [place] [address] GLOMERULAR FILTRATION RATE ML/MIN/1.73 SQ M.PREDICTED 90.0 mL/min/1.73m*2 Normal >60.0 [facility] Comment on above: Result Comment: Calc ulation based on the Chronic Kidney Disease Epidemiology Collaboration (CKD-EPI) equation refit without adjustment for race Performed By: #### L [id number] ####Hard Tile Setter: SWATI RATLIFF ([id number])[facility])[address] [place] [address] Glucose [Mass/Vol] 134 mg/dL High 70-100 [facility] Comment on above: Performed By: #### L [id number] ####Hard Tile Setter: SWATI RATLIFF ([id number])[facility])[address] [place] [address] Potassium [Moles/Vol] 3.9 mmol/L Normal 3.5-5.1 [facility] Comment on above: Performed By: #### L [id number] ####Hard Tile Setter: SWATI RATLIFF ([id number])[facility])[address] [place] [address] Protein [Mass/Vol] 5.3 g/dL Low 6.3-8.2 [facility] Comment on above: Performed By: #### L [id number] ####Hard Tile Setter: SWATI RATLIFF ([id number])[facility])[address] [place] [address] Sodium [Moles/Vol] 139 mmol/L Normal 135-145 [facility] Comment on above: Performed By: #### L [id number] ####Hard Tile Setter: SWATI RATLIFF ([id number])[facility])[address] [place] [address] Urea nitrogen [Mass/Vol] 19 mg/dL Normal 9-20 [facility] Comment on above: Performed By: #### L [id number] ####Hard Tile Setter: SWATI RATLIFF ([id number])[facility])[address] [place] [address] Comprehensive metabolic 1998 panelon 12-03-2023 Albumin [Mass/Vol] 2.9 g/dL Low 3.5 - 5.0 g/dL [facility] ALP [Catalytic activity/Vol] 71 U/L 38 - 126 U/L [facility] ALT [Catalytic activity/Vol] 12 U/L 0 - 49 U/L [facility] Anion gap [Moles/Vol] 5 mmol/L 3 - 13 mmol/L [facility] AST [Catalytic activity/Vol] 13 U/L Low 15 - 46 U/L [facility] Bilirubin [Mass/Vol] 0.3 mg/dL 0.2 - 1 .3 mg/dL [facility] Calcium [Mass/Vol] 8.4 mg/dL 8.4 - 10. 4 mg/dL [facility] Chloride [Moles/Vol] 114 mmol/L High 98 - 10 7 mmol/L [facility] CO2 [Moles/Vol] 20 mmol/L Low 22 - 30 mmol/L [facility] Creatinine [Mass/Vol] 0.93 mg/dL 0.66 - 1.25 mg/dL [facility] GFR/1.73 sq M.predicted (S/P/Bld) [Vol rate/Area] 90.0 mL/min - PINF [facility] Comment on above: Calculation based on the Chronic Kidney Disease Epidemiology Collaboration (CKD-EPI) equation refit without adjustment for race Glucose [Mass/Vol] 134 mg/dL High 70 - 100 mg/dL [facility] Interpretation and review of laboratory results Abnormal [facility] Potassium [Moles/Vol] 3.9 mmol/L 3.5 - 5.1 mmol/L [facility] Protein [Mass/Vol] 5.3 g/dL Low 6.3 - 8.2 g/dL [facility] Sodium [Moles/Vol] 139 mmol/L 135 - 145 mmol/L [facility] Urea nitrogen [Mass/Vol] 19 mg/dL 9 - 20 mg/dL [facility] - Chemistry and C hemistry - challengeon 12-03-2023 Glucose [Mass/Vol] 165 mg/dL High 70 - 100 mg/dL [facility] Glucose [Mass/Vol] 101 mg/dL High 70 - 100 mg/dL [facility] Glucose [Mass/Vol] 169 mg/dL High 70 - 100 mg/dL [facility] Glucose [Mass/Vol] 119 mg/dL High 70 - 100 mg/dL [facility] No Panel Informationon 12-02 Interpretation and review of laboratory results Abnormal [facility]formed by: [facility], [address] [place], [place] [id number] CLIA ID: [id number] [facility] Interpretation and review of laboratory results Abnormal [facility] Performed by: [facility], [address] [place] [id number] CLIA ID: [id number] [facility] Interpretation and review of laboratory results Abnormal [facility] Performed by: [facility], [address] [place] [id number] CLIA ID: [id number] [facility] Interpretation and review of laboratory results Abnormal [facility] Performed by: [facility], [address] [place] [address] CLIA ID: [id number] [facility] Progress Noteon 12-03-2023 Progress Note Normal [facility] Normal [facility] URINE CULTUREon 12-03-2023 Bacteria identified Cx Nom (U) Normal [facility] Comment on above: Performed By: #### L [id number] ####Hard Tile Setter: SWATI RATLIFF ([id number])[facility] ([facility])[address] [place] [address] 25-hydroxyvitamin D3 [Mass/V ol]on 12-02-2023 Interpretation and review of laboratory results Abnormal [facility] Therapy is based on measurement of Total 25-OHD with the following classification levels: Less than 20 ng/mL: Indicative of Vit D deficiency 20-30 ng/mL: Suggests Vit D insufficiency Optimal: Greater than or equal to 30 ng/mL Test performed by [employer] Competitive Immunoassay, measuring Total Vitamin D, not individual fractions. [facility] CBC W Auto Differential pane l (Bld)on 12-02-2023 Basophils (Bld) [#/Vol] 0.0 10*3/uL 0.0 - 0.2 10*3/uL [facility] Basophils/100 WBC (Bld) 0.7 % 0.0 - 2.0 % [facility] Eosinophils (Bld) [#/Vol] 0.2 10*3/uL 0.0 - 0.5 10*3/uL [facility] Eosinophils/100 WBC (Bld) 4.6 % 0.0 - 6.0 % [facility] Erythrocyte distribution width (RBC) [Ratio] 15.7 % High 11.5 - 15.0 % [facility] Hematocrit (Bld) [Volume fraction] 33.7 % Low 40.0 - 52.0 % [facility] Hemoglobin (Bld) [Mass/Vol] 10.5 g/dL Low 13.0 - 18.0 g/dL [facility] Immature granulocytes (Bld) [#/Vol] 0.0 10*3/uL NINF - 0.1 10*3/uL [facility] Immature granulocytes/100 WBC (Bld) 0.2 % 0.0 - 2.0 % [facility] Interpretation and review of laboratory results Abnormal [facility] Lymphocytes (Bld) [#/Vol] 0.8 10*3/uL Low 1.0 - 4.3 10*3/uL [facility] Lymphocytes/100 WBC (Bld) 18.0 % 15.0 - 45.0 % [facility] MCH (RBC) [Entitic mass] 30.3 pg 26. 0 - 34.0 pg [facility] MCHC (RBC) [Mass/Vol] 31.2 % 30.5 - 36.0 % [facility] MCV (RBC) [Entitic vol] 97.1 fL 77.0 - 99.0 fL [facility] Monocytes (Bld) [#/Vol] 0.5 10*3/uL 0.0 - 0.9 10*3/uL [facility] Monocytes/100 WBC (Bld) 11.4 % 5.0 - 13.0 % [facility] Neutrophils (Bld) [#/Vol] 3.0 10*3/uL 1.8 - 7.5 10*3/uL [facility] Neutrophils/100 WBC (Bld) 65.1 % 38.0 - 82.0 % [facility] Nucleated RBC/100 WBC (Bld) [Ratio] 0.0 % [facility] Platelet mean volume (Bld) [Entitic vol] 10.7 fL 9.0 - 12.7 fL [facility] Platelets (Bld) [#/Vol] 171 10*3/uL 140 - 440 10*3/uL [facility] RBC (Bld) [#/Vol] 3.47 10*6/uL Low 4.40 - 5.9 0 10*6/uL [facility] WBC (Bld) [#/Vol] 4.6 10*3/uL 3.6 - 10.7 10*3/uL [facility] CBC WITH AUTO DIFFERENTIALon 08-17-2024 Basophils (Bld) [#/Vol] 0.0 10*3/uL Normal 0.0-0.2 [facility] Comment on above: Performed By: #### L [id number] ####Hard Tile Setter: SWATI RATLIFF ([id number])[facility])[address] [place] [address] Basophils/100 WBC (Bld) 0.7 % Normal 0.0-2.0 [facility] Comment on above: Performed By: #### L [id number] ####Hard Tile Setter: SWATI RATLIFF ([id number])[facility])[address] [place] [address] Eosinophils (Bld) [#/Vol] 0.2 10*3/uL Normal 0.0-0.5 [facility] Comment on above: Performed By: #### L [id number] ####Hard Tile Setter: SWATI RATLIFF ([id number])[facility])[address] [place] [address] Eosinophils/100 WBC (Bld) 4.6 % Normal 0.0-6.0 [facility] Comment on above: Performed By: #### L [id number] ####Hard Tile Setter: SWATI RATLIFF ([id number])[facility])[address] [place] [address] Erythrocyte distribution width (RBC) [Ratio] 15.7 % High 11.5-15.0 [facility] Comment on above: Performed By: #### L [id number] ####Hard Tile Setter: SWATI RATLIFF ([id number])[facility])[address] [place] [address] Hematocrit (Bld) [Volume fraction] 33.7 % Low 40.0-52.0 [facility] Comment on above: Performed By: #### L [id number] ####Hard Tile Setter: SWATI RATLIFF ([id number])[facility])[address] [place] [address] Hemoglobin (Bld) [Mass/Vol] 10.5 g/dL Low 13.0-18.0 [facility] Comment on above: Performed By: #### L [id number] ####Hard Tile Setter: SWATI RATLIFF ([id number])[facility])[address] [place] [address] IMMATURE GRANS % 0.2 % Normal 0.0-2.0 [facility] Comment on above: Performed By: #### L [id number] ####Hard Tile Setter: SWATI RATLIFF ([id number])[facility])[address] [place] [address] IMMATURE GRANS ABSOLUTE 0.0 10*3/uL Normal <0.1 [facility] Comment on above: Performed By: #### L [id number] ####Hard Tile Setter: SWATI RATLIFF ([id number])[address] Lymphocytes (Bld) [#/Vol] 0.8 10*3/uL Low 1.0-4.3 [facility] Comment on above: Performed By: #### L [id number] ####Hard Tile Setter: SWATI RATLIFF ([id number])[address] Lymphocytes/100 WBC (Bld) 18.0 % Normal 15.0-45.0 [facility] Comment on above: Performed By: #### L [id number] ####Hard Tile Setter: SWATI RATLIFF ([id number])[facility])[address] [place] [address] MCH (RBC) [Entitic mass] 30.3 pg Normal 26.0-34.0 [facility] Comment on above: Performed By: #### L [id number] ####Hard Tile Setter: SWATI RATLIFF ([id number])[address] MCHC 31.2 % Normal 30.5-36.0 [facility] Comment on above: Performed By: #### L [id number] ####Hard Tile Setter: SWATI RATLIFF ([id number])[facility] ([facility])[address] [place] [address] MCV (RBC) [Entitic vol] 97.1 fL Normal 77.0-99.0 [facility] Comment on above: Performed By: #### L [id number] ####Hard Tile Setter: SWATI RATLIFF ([id number])[facility] ([facility])[address] [place] [address] Monocytes (Bld) [#/Vol] 0.5 10*3/uL Normal 0.0-0.9 [facility] Comment on above: Performed By: #### L [id number] ####Hard Tile Setter: SWATI RATLIFF ([id number])[facility] ([facility])[address] [place] [address] Monocytes/100 WBC (Bld) 11.4 % Normal 5.0-13.0 [facility] Comment on above: Performed By: #### L [id number] ####Hard Tile Setter: SWATI RATLIFF ([id number])[facility] ([facility])[address] [place] [address] NEUTROPHILS ABSOLUTE 3.0 10*3/uL Normal 1.8-7.5 [facility] Comment on above: Performed By: #### L [id number] ####Hard Tile Setter: SWATI RATLIFF ([id number])[facility])[address] [place] [address] Neutrophils/100 WBC (Bld) 65.1 % Normal 38.0-82.0 [facility] Comment on above: Performed By: #### L [id number] ####Hard Tile Setter: SWATI RATLIFF ([id number])[facility] ([facility])[address] [place] [address] NRBC 0.0 /100 WBCs Normal 0.0-2.0 [facility] Comment on above: Performed By: #### L [id number] ####Hard Tile Setter: SWATI RATLIFF ([id number])[facility])[address] [place] [address] Platelet mean volume (Bld) [Entitic vol] 10.7 fL Normal 9.0-12.7 [facility] Comment on above: Performed By: #### L [id number] ####Hard Tile Setter: SWATI RATLIFF ([id number])[facility])[address] [place] [address] Platelets (Bld) [#/Vol] 171 10*3/uL Normal 140-440 [facility] Comment on above: Performed By: #### L [id number] ####Hard Tile Setter: SWATI RATLIFF ([id number])[facility])[address] [place] [address] RBC (Bld) [#/Vol] 3.47 10*6/uL Low 4.40-5.90 [facility] Comment on above: Performed By: #### L [id number] ####Hard Tile Setter: SWATI RATLIFF ([id number])[facility])[address] [place] [address] WBC (Bld) [#/Vol] 4.6 10*3/uL Normal 3.6-10.7 [facility] Comment on above: Performed By: #### L [id number] ####Hard Tile Setter: SWATI RATLIFF ([id number])[facility])[address] [place] [address] COMPREHENSIVE METABOLIC PANE Cricket 12-02-2023 Albumin [Mass/Vol] 3.1 g/dL Low 3.5-5.0 [facility] Comment on above: Performed By: #### L AB17 [id number] ####Hard Tile Setter: SWATI RATLIFF ([id number])[facility])[address] [place] [address] ALP [Catalytic activity/Vol] 82 U/L Normal 38-126 [facility] Comment on above: Performed By: #### L ABJaime, [id number] ####Hard Tile Setter: SWATI RATLIFF ([id number])[facility])[address] [place] [address] ALT [Catalytic activity/Vol] 14 U/L Normal 0-49 [facility] Comment on above: Performed By: #### Joyce ANDRE [id number] ####Hard Tile Setter: SWATI RATLIFF ([id number])[facility])[address] [place] [address] Anion gap [Moles/Vol] 5 mmol/L Normal 3-13 [facility] Comment on above: Performed By: #### Joyce ANDRE [id number] ####Hard Tile Setter: SWATI RATLIFF ([id number])[facility])[address] [place] [address] AST [Catalytic activity/Vol] 16 U/L Normal 15-46 [facility] Comment on above: Performed By: #### Joyce ANDRE [id number] ####Hard Tile Setter: SWATI RATLIFF ([id number])[facility])[address] [place] [address] Bilirubin [Mass/Vol] 0.3 mg/dL Normal 0.2-1.3 [facility] Comment on above: Performed By: #### Joyce ANDRE [id number] ####Hard Tile Setter: SWATI RATLIFF ([id number])[facility])[address] [place] [address] Calcium [Mass/Vol] 8.5 mg/dL Normal 8.4-10.4 [facility] Comment on above: Performed By: #### Joyce ANDRE [id number] ####Hard Tile Setter: SWATI RATLIFF ([id number])[facility])[address] [place] [address] [place] Chloride [Moles/Vol] 113 mmol/L High 98-107 [facility] Comment on above: Performed By: #### Joyce ANDRE [id number] ####Hard Tile Setter: SWATI RATLIFF ([id number])[facility])[address] [place] [address] [place] CO2 [Moles/Vol] 18 mmol/L Low 22-30 [facility] Comment on above: Performed By: #### Joyce ANDRE [id number] ####Hard Tile Setter: SWATI RATLIFF ([id number])[facility])[address] [place] [address] Creatinine [Mass/Vol] 1.00 mg/dL Normal 0.66-1.[address] [facility] Comment on above: Performed By: #### Joyce ANDRE, [id number] ####Hard Tile Setter: SWATI RATLIFF ([id number])[facility])[address] [place] [address] GLOMERULAR FILTRATION RATE ML/MIN/1.73 SQ M.PREDICTED 82.5 mL/min/1.73m*2 Normal >60.0 [facility] Comment on above: Result Comment: Calc ulation based on the Chronic Kidney Disease Epidemiology Collaboration (CKD-EPI) equation refit without adjustment for race Performed By: #### Joyce ANDRE [id number] ####Hard Tile Setter: SWATI RATLIFF ([id number])[facility])[address] [place] [address] Glucose [Mass/Vol] 216 mg/dL High 70-100 [facility] Comment on above: Performed By: #### Joyce ANDRE [id number] ####Hard Tile Setter: SWATI RATLIFF ([id number])[facility])[address] [place] [address] Potassium [Moles/Vol] 4.1 mmol/L Normal 3.5-5.[address] [facility] Comment on above: Performed By: #### Jocye ANDRE [id number] ####Hard Tile Setter: SWATI RATLIFF ([id number])[facility])[address] [place] [address] [place] Protein [Mass/Vol] 5.5 g/dL Low 6.3-8.2 [facility] Comment on above: Performed By: #### Joyce ANDRE, [id number] ####Hard Tile Setter: SWATI RATLIFF ([id number])[facility])[address] [place] [address] [place] Sodium [Moles/Vol] 137 mmol/L Normal 135-145 [facility] Comment on above: Performed By: #### L AB17, [id number] ####Hard Tile Setter: SWATI RATLIFF ([id number])[facility])[address] [place] [address] Urea nitrogen [Mass/Vol] 23 mg/dL High 9-20 [facility] Comment on above: Performed By: #### Joyce AB17, [id number] ####Hard Tile Setter: SWATI RATLIFF ([id number])[facility])[address] [place] [address] Comprehensive metabolic 1998 panelon 12-02-2023 Albumin [Mass/Vol] 3.1 g/dL Low 3.5 - 5.0 g/dL [facility] ALP [Catalytic activity/Vol] 82 U/L 38 - 126 U/L [facility] ALT [Catalytic activity/Vol] 14 U/L 0 - 49 U/L [facility] Anion gap [Moles/Vol] 5 mmol/L 3 - 13 mmol/L [facility] AST [Catalytic activity/Vol] 16 U/L 15 - 46 U/L [facility] Bilirubin [Mass/Vol] 0.3 mg/dL 0.2 - 1 .3 mg/dL [facility] Calcium [Mass/Vol] 8.5 mg/dL 8.4 - 10. 4 mg/dL [facility] Chloride [Moles/Vol] 113 mmol/L High 98 - 10 7 mmol/L [facility] CO2 [Moles/Vol] 18 mmol/L Low 22 - 30 mmol/L [facility] Creatinine [Mass/Vol] 1.00 mg/dL 0.66 - 1.25 mg/dL [facility] GFR/1.73 sq M.predicted (S/P/Bld) [Vol rate/Area] 82.5 mL/min - PINF [facility] Comment on above: Calculation based on the Chronic Kidney Disease Epidemiology Collaboration (CKD-EPI) equation refit without adjustment for race Glucose [Mass/Vol] 216 mg/dL High 70 - 100 mg/dL [facility] Interpretation and review of laboratory results Abnormal [facility] Potassium [Moles/Vol] 4.1 mmol/L 3.5 - 5.1 mmol/L [facility] Protein [Mass/Vol] 5.5 g/dL Low 6.3 - 8.2 g/dL [facility] Sodium [Moles/Vol] 137 mmol/L 135 - 145 mmol/L [facility] Urea nitrogen [Mass/Vol] 23 mg/dL High 9 - 20 mg/dL [facility] - Chemistry and C hemistry - challengeon 12-02-2023 Glucose [Mass/Vol] 259 mg/dL High 70 - 100 mg/dL [facility] Glucose [Mass/Vol] 142 mg/dL High 70 - 100 mg/dL [facility] Comment on above: Caregiver Notified; Glucose [Mass/Vol] 207 mg/dL High 70 - 100 mg/dL [facility] Comment on above: Caregiver Notified; 25-hydroxyvitamin D3 [Mass/Vol] 24 ng/mL Low 30 - 100 ng/mL [facility] Glucose [Mass/Vol] 156 mg/dL High 70 - 100 mg/dL [facility] Comment on above: Caregiver Notified; Troponin I.cardiac [Mass/Vol] ng/mL NINF - 0.034 ng/mL [facility] No Panel Informationon 12-01 Interpretation and review of laboratory results Abnormal [facility] Performed by: [facility], [address] [place] [address] CLIA ID: [id number] [facility] Interpretation and review of laboratory results Abnormal [facility] Performed by: [facility], [address] [place] [address] CLIA ID: [id number] [facility] Interpretation and review of laboratory results Abnormal [facility] Performed by: [facility], [address] [place] [address] CLIA ID: [id number] [facility] Interpretation and review of laboratory results Abnormal [facility] Performed by: [employer] [facility], [address] [place] [address] CLIA ID: [id number] [facility] Progress Noteon 12-02-2023 Progress Note Normal [facility] TROPONIN Ion 12-02-2023 Troponin I.cardiac [Mass/Vol] ng/mL Normal <0.034 [facility] Comment on above: Result Comment: TAVO R COMMENTS:Patients with high levels of Biotin oral intake (ie >5 mg/day) may have falsely decreased Troponin levels. Performed By: #### L AB17, [id number] ####Hard Tile Setter: SWATI RATLIFF ([id number])[facility] ([facility])[address] [place] [address] Troponin I.cardiac [Mass/Vol ]on 12-02-2023 Interpretation and review of laboratory results Normal [facility] Patients with high levels of Biotin oral intake (ie >5 mg/day) may have falsely decreased Troponin levels. [facility] VITAMIN D DEFICIENCY SCREENI NG (VIT D 25)on 12-02-2023 VIT D 25-OH, TOTAL 24 ng/mL Low 30-100 [facility] Comment on above: Result Comment: TAVO Hernandez COMMENTS:Therapy is based on measurement of Total 25-OHD with the following classification levels:Less than 20 ng/mL: Indicative of Vit D [id number] ng/mL: Suggests Vit D insufficiencyOptimal: Greater than or equal to 30 ng/mLTest performed by [employer] Competitive Immunoassay, measuring Total Vitamin D, not individual fractions. Performed By: #### L [id number] ####Hard Tile Setter: CLARE HUGGINS ([id number])[facility] ([facility])[address] [place] [address] CARECOORDon 12-01-2023 [facility] CBC W Auto Differential pane l (Bld)Ordered By: Nash George on 12-01-2023 Basophils (Bld) [#/Vol] 0.0 10*3/uL 0.0 - 0.2 10*3/uL [facility] Basophils/100 WBC (Bld) 0.5 % 0.0 - 2.0 % [facility] Eosinophils (Bld) [#/Vol] 0.2 10*3/uL 0.0 - 0.5 10*3/uL [facility] Eosinophils/100 WBC (Bld) 5.1 % 0.0 - 6.0 % [facility] Erythrocyte distribution width (RBC) [Ratio] 15.7 % High 11.5 - 15.0 % [facility] Hematocrit (Bld) [Volume fraction] 33.3 % Low 40.0 - 52.0 % [facility] Hemoglobin (Bld) [Mass/Vol] 10.4 g/dL Low 13.0 - 18.0 g/dL [facility] Immature granulocytes (Bld) [#/Vol] 0.0 10*3/uL NINF - 0.1 10*3/uL [facility] Immature granulocytes/100 WBC (Bld) 0.2 % 0.0 - 2.0 % [facility] Interpretation and review of laboratory results Abnormal [facility] Lymphocytes (Bld) [#/Vol] 0.9 10*3/uL Low 1.0 - 4.3 10*3/uL [facility] Lymphocytes/100 WBC (Bld) 21.8 % 15.0 - 45.0 % [facility] MCH (RBC) [Entitic mass] 29.9 pg 26. 0 - 34.0 pg [facility] MCHC (RBC) [Mass/Vol] 31.2 % 30.5 - 36.0 % [facility] MCV (RBC) [Entitic vol] 95.7 fL 77.0 - 99.0 fL [facility] Monocytes (Bld) [#/Vol] 0.5 10*3/uL 0.0 - 0.9 10*3/uL [facility] Monocytes/100 WBC (Bld) 11.3 % 5.0 - 13.0 % [facility] Neutrophils (Bld) [#/Vol] 2.6 10*3/uL 1.8 - 7.5 10*3/uL [facility] Neutrophils/100 WBC (Bld) 61.1 % 38.0 - 82.0 % [facility] Nucleated RBC/100 WBC (Bld) [Ratio] 0.0 % [facility] Platelet mean volume (Bld) [Entitic vol] 10.5 fL 9.0 - 12.7 fL [facility] Platelets (Bld) [#/Vol] 173 10*3/uL 140 - 440 10*3/uL [facility] RBC (Bld) [#/Vol] 3.48 10*6/uL Low 4.40 - 5.9 0 10*6/uL [facility] WBC (Bld) [#/Vol] 4.3 10*3/uL 3.6 - 10.7 10*3/uL [facility] CBC WITH AUTO DIFFERENTIALon 12-01-2023 Basophils (Bld) [#/Vol] 0.0 10*3/uL Normal 0.0-0.2 [facility] Comment on above: Performed By: #### L [id number] ####Hard Tile Setter: SWATI RATLIFF ([id number])[facility])[address] [place] [address] Basophils/100 WBC (Bld) 0.5 % Normal 0.0-2.0 [facility] Comment on above: Performed By: #### L [id number] ####Hard Tile Setter: SWATI RATLIFF ([id number])[facility])[address] [place] [address] Eosinophils (Bld) [#/Vol] 0.2 10*3/uL Normal 0.0-0.5 [facility] Comment on above: Performed By: #### L [id number] ####Hard Tile Setter: SWATI RATLIFF ([id number])[facility])[address] [place] [address] Eosinophils/100 WBC (Bld) 5.1 % Normal 0.0-6.0 [facility] Comment on above: Performed By: #### L [id number] ####Hard Tile Setter: SWATI RATLIFF ([id number])[facility])[address] [place] [address] Erythrocyte distribution width (RBC) [Ratio] 15.7 % High 11.5-15.0 [facility] Comment on above: Performed By: #### L [id number] ####Hard Tile Setter: SWATI RATLIFF ([id number])[facility])[address] [place] [address] Hematocrit (Bld) [Volume fraction] 33.3 % Low 40.0-52.0 [facility] Comment on above: Performed By: #### L [id number] ####Hard Tile Setter: SWATI RATLIFF ([id number])[facility])[address] [place] [address] Hemoglobin (Bld) [Mass/Vol] 10.4 g/dL Low 13.0-18.0 [facility] Comment on above: Performed By: #### L [id number] ####Hard Tile Setter: SWATI RATLIFF ([id number])[facility])[address] [place] [address] IMMATURE GRANS % 0.2 % Normal 0.0-2.0 [facility] Comment on above: Performed By: #### L [id number] ####Hard Tile Setter: SWATI RATLIFF ([id number])[facility])[address] [place] [address] IMMATURE GRANS ABSOLUTE 0.0 10*3/uL Normal <0.1 [facility] Comment on above: Performed By: #### L [id number] ####Hard Tile Setter: SWATI RATLIFF ([id number])[address] Lymphocytes (Bld) [#/Vol] 0.9 10*3/uL Low 1.0-4.3 [facility] Comment on above: Performed By: #### L [id number] ####Hard Tile Setter: SWATI RATLIFF ([id number])[address] Lymphocytes/100 WBC (Bld) 21.8 % Normal 15.0-45.0 [facility] Comment on above: Performed By: #### L [id number] ####Hard Tile Setter: SWATI RATLIFF ([id number])[facility])[address] [place] [address] MCH (RBC) [Entitic mass] 29.9 pg Normal 26.0-34.0 [facility] Comment on above: Performed By: #### L [id number] ####Hard Tile Setter: SWATI RATLIFF ([id number])[address] MCHC 31.2 % Normal 30.5-36.0 [facility] Comment on above: Performed By: #### L [id number] ####Hard Tile Setter: SWATI RATLIFF ([id number])[facility])[address] [place] [address] MCV (RBC) [Entitic vol] 95.7 fL Normal 77.0-99.0 [facility] Comment on above: Performed By: #### L [id number] ####Hard Tile Setter: SWATI RATLIFF ([id number])[facility])[address] [place] [address] Monocytes (Bld) [#/Vol] 0.5 10*3/uL Normal 0.0-0.9 [facility] Comment on above: Performed By: #### L [id number] ####Hard Tile Setter: SWATI RATLIFF ([id number])[facility])[address] [place] [address] Monocytes/100 WBC (Bld) 11.3 % Normal 5.0-13.0 [facility] Comment on above: Performed By: #### L [id number] ####Hard Tile Setter: SWATI RATLIFF ([id number])[facility])[address] [place] [address] NEUTROPHILS ABSOLUTE 2.6 10*3/uL Normal 1.8-7.5 [facility] Comment on above: Performed By: #### L [id number] ####Hard Tile Setter: SWATI RATLIFF ([id number])[facility])[address] [place] [address] Neutrophils/100 WBC (Bld) 61.1 % Normal 38.0-82.0 [facility] Comment on above: Performed By: #### L [id number] ####Hard Tile Setter: SWATI RATLIFF ([id number])[facility])[address] [place] [address] [place] NRBC 0.0 /100 WBCs Normal 0.0-2.0 [facility] Comment on above: Performed By: #### L [id number] ####Hard Tile Setter: SWATI RATLIFF ([id number])[facility])[address] [place] [address] Platelet mean volume (Bld) [Entitic vol] 10.5 fL Normal 9.0-12.7 [facility] Comment on above: Performed By: #### L [id number] ####Hard Tile Setter: SWATI RATLIFF ([id number])[facility])[address] [place] [address] Platelets (Bld) [#/Vol] 173 10*3/uL Normal 140-440 [facility] Comment on above: Performed By: #### L [id number] ####Hard Tile Setter: SWATI RATLIFF ([id number])[facility])[address] [place] [address] RBC (Bld) [#/Vol] 3.48 10*6/uL Low 4.40-5.90 [facility] Comment on above: Performed By: #### L [id number] ####Hard Tile Setter: SWATI RATLIFF ([id number])[facility])[address] [place] [address] WBC (Bld) [#/Vol] 4.3 10*3/uL Normal 3.6-10.7 [facility] Comment on above: Performed By: #### L [id number] ####Hard Tile Setter: SWATI RATLIFF ([id number])[facility])[address] [place] [address] COMPREHENSIVE METABOLIC PANE Cricket 12-01-2023 Albumin [Mass/Vol] 3.2 g/dL Low 3.5-5.0 [facility] Comment on above: Performed By: #### L [id number] ####Hard Tile Setter: SWATI RATLIFF ([id number])[facility])[address] [place] [address] ALP [Catalytic activity/Vol] 80 U/L Normal 38-126 [facility] Comment on above: Performed By: #### L AB17 ####Hard Tile Setter: SWATI RATLIFF ([id number])[facility])[address] [place] [address] ALT [Catalytic activity/Vol] 15 U/L Normal 0-49 [facility] Comment on above: Performed By: #### L AB17 ####Hard Tile Setter: SWATI RATLIFF ([id number])[facility])[address] [place] [address] Anion gap [Moles/Vol] 5 mmol/L Normal 3-13 [facility] Comment on above: Performed By: #### L AB17 ####Hard Tile Setter: SWATI RATLIFF ([id number])[facility])[address] [place] [address] AST [Catalytic activity/Vol] 20 U/L Normal 15-46 [facility] Comment on above: Performed By: #### L AB17 ####Hard Tile Setter: SWATI RATLIFF ([id number])[facility])[address] [place] [address] Bilirubin [Mass/Vol] 0.5 mg/dL Normal 0.2-1.3 [facility] Comment on above: Performed By: #### L AB17 ####Hard Tile Setter: SWATI RATLIFF ([id number])[facility])[address] [place] [address] Calcium [Mass/Vol] 8.6 mg/dL Normal 8.4-10.4 [facility] Comment on above: Performed By: #### L AB17 ####Hard Tile Setter: SWATI RATLIFF ([id number])[facility])[address] [place] [address] [place] Chloride [Moles/Vol] 114 mmol/L High 98-107 [facility] Comment on above: Performed By: #### L AB17 ####Hard Tile Setter: SWATI RATLIFF ([id number])[facility])[address] [place] [address] [place] CO2 [Moles/Vol] 19 mmol/L Low 22-30 [facility] Comment on above: Performed By: #### L AB17 ####Hard Tile Setter: SWATI RATLIFF ([id number])[facility])[address] [place] [address] Creatinine [Mass/Vol] 1.08 mg/dL Normal 0.66-1.[address] [facility] Comment on above: Performed By: #### L AB17 ####Hard Tile Setter: SWATI RATLIFF ([id number])[facility])[address] [place] [address] GLOMERULAR FILTRATION RATE ML/MIN/1.73 SQ M.PREDICTED 75.2 mL/min/1.73m*2 Normal >60.0 [facility] Comment on above: Result Comment: Calc ulation based on the Chronic Kidney Disease Epidemiology Collaboration (CKD-EPI) equation refit without adjustment for race Performed By: #### L AB17 ####Hard Tile Setter: SWATI RATLIFF ([id number])[facility])[address] [place] [address] Glucose [Mass/Vol] 137 mg/dL High 70-100 [facility] Comment on above: Performed By: #### L AB17 ####Hard Tile Setter: SWATI RATLIFF ([id number])[facility])[address] [place] [address] Potassium [Moles/Vol] 4.1 mmol/L Normal 3.5-5.[address] [facility] Comment on above: Performed By: #### L AB17 ####Hard Tile Setter: SWATI RATLIFF ([id number])[facility])[address] [place] [address] Protein [Mass/Vol] 5.6 g/dL Low 6.3-8.2 [facility] Comment on above: Performed By: #### L AB17 ####Hard Tile Setter: SWATI RATLIFF ([id number])[facility] ([facility])[address] [place] [address] Sodium [Moles/Vol] 138 mmol/L Normal 135-145 [facility] Comment on above: Performed By: #### L [id number] ####Hard Tile Setter: SWATI RATLIFF ([id number])[facility] ([facility])[address] [place] [address] [place] Urea nitrogen [Mass/Vol] 25 mg/dL High 9-20 [facility] Comment on above: Performed By: #### L [id number] ####Hard Tile Setter: SWATI RATLIFF ([id number])[facility] ([facility])[address] [place] [address] Comprehensive metabolic 1998 panelon 12-01-2023 Albumin [Mass/Vol] 3.2 g/dL Low 3.5 - 5.0 g/dL [facility] ALP [Catalytic activity/Vol] 80 U/L 38 - 126 U/L [facility] ALT [Catalytic activity/Vol] 15 U/L 0 - 49 U/L [facility] Anion gap [Moles/Vol] 5 mmol/L 3 - 13 mmol/L [facility] AST [Catalytic activity/Vol] 20 U/L 15 - 46 U/L [facility] Bilirubin [Mass/Vol] 0.5 mg/dL 0.2 - 1 .3 mg/dL [facility] Calcium [Mass/Vol] 8.6 mg/dL 8.4 - 10. 4 mg/dL [facility] Chloride [Moles/Vol] 114 mmol/L High 98 - 10 7 mmol/L [facility] CO2 [Moles/Vol] 19 mmol/L Low 22 - 30 mmol/L [facility] Creatinine [Mass/Vol] 1.08 mg/dL 0.66 - 1.25 mg/dL [facility] GFR/1.73 sq M.predicted (S/P/Bld) [Vol rate/Area] 75.2 mL/min - PINF [facility] Comment on above: Calculation based on the Chronic Kidney Disease Epidemiology Collaboration (CKD-EPI) equation refit without adjustment for race Glucose [Mass/Vol] 137 mg/dL High 70 - 100 mg/dL [facility] Interpretation and review of laboratory results Abnormal [facility] Potassium [Moles/Vol] 4.1 mmol/L 3.5 - 5.1 mmol/L [facility] Protein [Mass/Vol] 5.6 g/dL Low 6.3 - 8.2 g/dL [facility] Sodium [Moles/Vol] 138 mmol/L 135 - 145 mmol/L [facility] Urea nitrogen [Mass/Vol] 25 mg/dL High 9 - 20 mg/dL [facility] IDNon 12-01-2023 IDN Normal [facility] Laboratory - Chemistry and C hemistry - challengeon 12-01-2023 Glucose [Mass/Vol] 276 mg/dL High 70 - 100 mg/dL [facility] Glucose [Mass/Vol] 74 mg/dL 70 - 100 mg/dL [facility] Glucose [Mass/Vol] 156 mg/dL High 70 - 100 mg/dL [facility] Glucose [Mass/Vol] 124 mg/dL High 70 - 100 mg/dL [facility] MR Brain WO and W contrast I Von 12-01-2023 Patient Name: JAMES REYES : 1955 [...] sinuses. Mastoid air cells: Normal. Orbits: Normal. [facility] Amadeo Luciano MD - 12/01/2023 Patient Name: JAMES REYES : 1955 [facility]#: [id number] Exam Date/Time: 12/01/2023 12:30 Procedure: MR BRAIN [...] arteries: There is origin of the right CLAIMS TECHNICIAN. Otherwise, unremarkable. Anterior communicating artery: Unremarkable. Posterior communicating arteries: Robustness of the right posterior communicating artery is present, in keeping with origin of the right CLAIMS TECHNICIAN. Otherwise, unremarkable. Aneurysm or vascular malformation: None [...] Electronically Signed Date/Time: 12/01/2023 1:27 PM EDT [employer] MRA Head vessels WO contrast on 12-01-2023 [...] sinuses. Mastoid air cells: Normal. Orbits: Normal. [facility] Amadeo Luciano MD - 12/01/2023 [facility] 1955 [id number] Exam Date/Time: 12/01/2023 12:30 Procedure: MR HEAD [...] arteries: There is origin of the right CLAIMS TECHNICIAN. Otherwise, unremarkable. Anterior communicating artery: Unremarkable. Posterior communicating arteries: Robustness of the right posterior communicating artery is present, in keeping with origin of the right CLAIMS TECHNICIAN. Otherwise, unremarkable. Aneurysm or vascular malformation: None [...] Electronically Signed Date/Time: 12/01/2023 1:27 PM EDT [email or web address] [facility] MRA Neck vessels WO and W co ntrast Marisa 12-01-2023 [facility]: [facility] 1955 [id number] Exam Date/Time: 12/01/2023 12:30 Procedure: MR NECK [...] sinuses. Mastoid air cells: Normal. Orbits: Normal. [facility] Amadeo Luciano MD - 12/01/2023 [facility] Name: [facility] 1955 [id number] Exam Date/Time: 12/01/2023 12:30 Procedure: MR NECK [...] arteries: There is origin of the right CLAIMS TECHNICIAN. Otherwise, unremarkable. Anterior communicating artery: Unremarkable. Posterior communicating arteries: Robustness of the right posterior communicating artery is present, in keeping with origin of the right CLAIMS TECHNICIAN. Otherwise, unremarkable. Aneurysm or vascular malformation: None [...] Electronically Signed Date/Time: 12/01/2023 1:27 PM EDT [facility] No Panel Informationon 11-30 Interpretation and review of laboratory results Abnormal [facility] Performed by: [facility], [address] [place] [address] CLIA ID: [id number] [facility] Interpretation and review of laboratory results Normal [facility] Performed by: [facility], [address] [facility] [address] CLIA ID: [id number] [facility] 1. Diminished cerebr al volume and evidence [...] arteries: There is origin of the right CLAIMS TECHNICIAN. Otherwise, unremarkable. Anterior communicating artery: Unremarkable. Posterior communicating arteries: Robustness of the right posterior communicating artery is present, in keeping with origin of the right CLAIMS TECHNICIAN. Otherwise, unremarkable. Aneurysm or vascular malformation: None [...] Electronically Signed Date/Time: 12/01/2023 1:27 PM EDT [facility] Interpretation and review of laboratory results Abnormal [facility] Performed by: [facility], [address] [place] [address] CLIA ID: [id number] [facility] Radiology Study observation (narrative) [facility] Interpretation and review of laboratory results Abnormal [facility] Performed by: [facility], [address] [place] [address] CLIA ID: [id number] [facility] No Panel InformationOrdered By: Amadeo Luciano on 12-01-2023 [facility] Work Phone: Progress Noteon 12-01-2023 Progress Note Normal [facility] Progress Note Nutrition rescreen completed. Patient referred to the Dietitian due to DM uncontrolled (HgA1c = 8.5). RAGHAV Lopez Normal [facility] Progress Note Normal [facility] Progress Note Normal [facility] CARECOORDon 11-30-2023 CARECOORD Normal [facility] CARECOORD Spoke to Oralia MEDINA. Pt follows with PCP Dr.Richard Rodriguez with [facility] [phone] Normal [facility] CBC (HEMOGRAM)on 11-30-2023 Erythrocyte distribution width (RBC) [Ratio] 15.6 % High 11.5-15.0 [facility] Comment on above: Performed By: #### L AB294 ####Hard Tile Setter: SWATI RATLIFF ([id number])[facility] ([facility])[address] [place] [address] Hematocrit (Bld) [Volume fraction] 34.5 % Low 40.0-52.0 [facility] Comment on above: Performed By: #### L AB294 ####Hard Tile Setter: SWATI RATLIFF ([id number])[facility])[address] [place] [address] Hemoglobin (Bld) [Mass/Vol] 10.9 g/dL Low 13.0-18.0 [facility] Comment on above: Performed By: #### L AB294 ####Hard Tile Setter: SWATI RATLIFF ([id number])[facility])[address] [place] [address] MCH (RBC) [Entitic mass] 30.6 pg Normal 26.0-34.0 [facility] Comment on above: Performed By: #### L AB294 ####Hard Tile Setter: SWATI RATLIFF ([id number])[facility])[address] [place] [address] MCHC 31.6 % Normal 30.5-36.0 [facility] Comment on above: Performed By: #### L AB294 ####Hard Tile Setter: SWATI RATLIFF ([id number])[facility] ([facility])[address] [place] [address] MCV (RBC) [Entitic vol] 96.9 fL Normal 77.0-99.0 [facility] Comment on above: Performed By: #### L AB294 ####Hard Tile Setter: SWATI RATLIFF ([id number])[facility])[address] [place] [address] Platelet mean volume (Bld) [Entitic vol] 10.4 fL Normal 9.0-12.7 [facility] Comment on above: Performed By: #### L AB294 ####Hard Tile Setter: SWATI RATLIFF ([id number])[facility])[address] [place] [address] Platelets (Bld) [#/Vol] 191 10*3/uL Normal 140-440 [facility] Comment on above: Performed By: #### L AB294 ####Hard Tile Setter: SWATI RATLIFF ([id number])[facility] [place] [address] RBC (Bld) [#/Vol] 3.56 10*6/uL Low 4.40-5.90 [facility] Comment on above: Performed By: #### L AB294 ####Hard Tile Setter: SWATI RATLIFF ([id number])[facility] ([facility])[address] [place] [address] WBC (Bld) [#/Vol] 5.1 10*3/uL Normal 3.6-10.7 [facility] Comment on above: Performed By: #### L AB294 ####Hard Tile Setter: SWATI RATLIFF ([id number])[facility] ([facility])[address] [place] [address] CBC panel Auto (Bld)on 11-29 Erythrocyte distribution width (RBC) [Ratio] 15.6 % High 11.5 - 15.0 % [facility] Hematocrit (Bld) [Volume fraction] 34.5 % Low 40.0 - 52.0 % [facility] Hemoglobin (Bld) [Mass/Vol] 10.9 g/dL Low 13.0 - 18.0 g/dL [facility] Interpretation and review of laboratory results Abnormal [facility] MCH (RBC) [Entitic mass] 30.6 pg 26. 0 - 34.0 pg [facility] MCHC (RBC) [Mass/Vol] 31.6 % 30.5 - 36.0 % [facility] MCV (RBC) [Entitic vol] 96.9 fL 77.0 - 99.0 fL [facility] Platelet mean volume (Bld) [Entitic vol] 10.4 fL 9.0 - 12.7 fL [facility] Platelets (Bld) [#/Vol] 191 10*3/uL 140 - 440 10*3/uL [facility] RBC (Bld) [#/Vol] 3.56 10*6/uL Low 4.40 - 5.9 0 10*6/uL [facility] WBC (Bld) [#/Vol] 5.1 10*3/uL 3.6 - 10.7 10*3/uL [facility] COMPREHENSIVE METABOLIC PANE [employer] 11-30-2023 Albumin [Mass/Vol] 3.2 g/dL Low 3.5-5.0 [facility] Comment on above: Performed By: #### L AB17, VTC325, LAB67, LAB18, LAB69, [id number] ####Hard Tile Setter: SWATI RATLIFF ([id number])[facility] ([facility])[address] [place] [address] ALP [Catalytic activity/Vol] 81 U/L Normal 38-126 [facility] Comment on above: Performed By: #### L AB17, HVB606, LAB67, LAB18, LAB69, QDP454 ####Hard Tile Setter: SWATI RATLIFF ([id number])[facility] ([facility])[address] [place] [address] ALT [Catalytic activity/Vol] 13 U/L Normal 0-49 [facility] Comment on above: Performed By: #### L AB17, WYB164, LAB67, LAB18, LAB69, SIX247 ####Hard Tile Setter: SWATI RATLIFF ([id number])[facility] ([facility])[address] [place] [address] Anion gap [Moles/Vol] 5 mmol/L Normal 3-[address] [facility] Comment on above: Performed By: #### L AB17, CGH555, LAB67, LAB18, LAB69, RZA662 ####Hard Tile Setter: SWATI RATLIFF ([id number])[facility] ([facility])[address] [place] [address] AST [Catalytic activity/Vol] 19 U/L Normal 15-46 [facility] Comment on above: Performed By: #### L AB17, SAS860, LAB67, LAB18, LAB69, VVI682 ####Hard Tile Setter: SWATI RATLIFF ([id number])[facility])[address] [place] [address] Bilirubin [Mass/Vol] 0.5 mg/dL Normal 0.2-1.3 [facility] Comment on above: Performed By: #### L AB17, SFE633, LAB67, LAB18, LAB69, PES987 ####Hard Tile Setter: SWATI RATLIFF ([id number])[facility])[address] [place] [address] Calcium [Mass/Vol] 8.8 mg/dL Normal 8.4-10.4 [facility] Comment on above: Performed By: #### L AB17, QSB922, LAB67, LAB18, LAB69, YFN644 ####Hard Tile Setter: SWATI RATLIFF ([id number])[facility] ([facility])[address] [place] [address] Chloride [Moles/Vol] 115 mmol/L High 98-107 [facility] Comment on above: Performed By: #### L AB17, HCC815, LAB67, LAB18, LAB69, JAZ081 ####Hard Tile Setter: SWATI RATLIFF ([id number])[facility])[address] [place] [address] CO2 [Moles/Vol] 19 mmol/L Low 22-30 [facility] Comment on above: Performed By: #### L AB17, JNG258, LAB67, LAB18, LAB69, POE302 ####Hard Tile Setter: SWATI RATLIFF ([id number])[facility])[address] [place] [address] Creatinine [Mass/Vol] 1.05 mg/dL Normal 0.66-1.[address] [facility] Comment on above: Performed By: #### L AB17, BUC082, LAB67, LAB18, LAB69, TKR697 ####Hard Tile Setter: SWATI RATLIFF ([id number])[facility])[address] [place] [address] [place] GLOMERULAR FILTRATION RATE ML/MIN/1.73 SQ M.PREDICTED 77.8 mL/min/1.73m*2 Normal >60.0 [facility] Comment on above: Result Comment: Calc ulation based on the Chronic Kidney Disease Epidemiology Collaboration (CKD-EPI) equation refit without adjustment for race Performed By: #### L AB17, ODB056, LAB67, LAB18, LAB69, SSL950 ####Hard Tile Setter: SWATI RATLIFF ([id number])[facility])[address] [place] [address] Glucose [Mass/Vol] 121 mg/dL High 70-100 [facility] Comment on above: Performed By: #### L AB17, GXI244, LAB67, LAB18, LAB69, ECH223 ####Hard Tile Setter: SWATI RATLIFF ([id number])[facility])[address] [place] [address] Potassium [Moles/Vol] 3.9 mmol/L Normal 3.5-5.1 [facility] Comment on above: Performed By: #### L AB17, FZS081, LAB67, LAB18, LAB69, FFG826 ####Hard Tile Setter: SWATI RATLIFF ([id number])[facility])[address] [place] [address] Protein [Mass/Vol] 5.7 g/dL Low 6.3-8.2 [facility] Comment on above: Performed By: #### L AB17, YGE013, LAB67, LAB18, LAB69, PHY565 ####Hard Tile Setter: SWATI RATLIFF ([id number])[facility])[address] [place] [address] Sodium [Moles/Vol] 138 mmol/L Normal 135-145 [facility] Comment on above: Performed By: #### L AB17, CZW906, LAB67, LAB18, LAB69, UDW010 ####Hard Tile Setter: SWATI RATLIFF ([id number])[facility])[address] [place] [address] [place] Urea nitrogen [Mass/Vol] 27 mg/dL High 9-20 [facility] Comment on above: Performed By: #### L AB17, IVL888, LAB67, LAB18, LAB69, UNK119 ####Hard Tile Setter: SWATI RATLIFF ([id number])[facility])[address] [place] [address] [place] Cobalamin (Vitamin B12) [Mas s/Vol]on 11-30-2023 Interpretation and review of laboratory results Abnormal [facility] Comprehensive metabolic 1998 panelon 11-30-2023 Albumin [Mass/Vol] 3.2 g/dL Low 3.5 - 5.0 g/dL [facility] ALP [Catalytic activity/Vol] 81 U/L 38 - 126 U/L [facility] ALT [Catalytic activity/Vol] 13 U/L 0 - 49 U/L [facility] Anion gap [Moles/Vol] 5 mmol/L 3 - 13 mmol/L [facility] AST [Catalytic activity/Vol] 19 U/L 15 - 46 U/L [facility] Bilirubin [Mass/Vol] 0.5 mg/dL 0.2 - 1 .3 mg/dL [facility] Calcium [Mass/Vol] 8.8 mg/dL 8.4 - 10. 4 mg/dL [facility] Chloride [Moles/Vol] 115 mmol/L High 98 - 10 7 mmol/L [facility] CO2 [Moles/Vol] 19 mmol/L Low 22 - 30 mmol/L [facility] Creatinine [Mass/Vol] 1.05 mg/dL 0.66 - 1.25 mg/dL [facility] GFR/1.73 sq M.predicted (S/P/Bld) [Vol rate/Area] 77.8 mL/min - PINF [facility] Comment on above: Calculation based on the Chronic Kidney Disease Epidemiology Collaboration (CKD-EPI) equation refit without adjustment for race Glucose [Mass/Vol] 121 mg/dL High 70 - 100 mg/dL [facility] Potassium [Moles/Vol] 3.9 mmol/L 3.5 - 5.1 mmol/L [facility] Protein [Mass/Vol] 5.7 g/dL Low 6.3 - 8.2 g/dL [facility] Sodium [Moles/Vol] 138 mmol/L 135 - 145 mmol/L [facility] Urea nitrogen [Mass/Vol] 27 mg/dL High 9 - 20 mg/dL [facility] Consulton 11-30-2023 Consult Normal [facility] ECG 12-LEADon 11-30-2023 ECG 12-LEAD IMPRESSION: Sinus rhythm Prolonged VT interval Nonspecific IVCD with LAD Abnormal T, consider ischemia, lateral leads Compared to ECG 04/24/23 No significant change Electronically Signed On 11-30-2023 00:44:00 EDT by Sergio Ruff Normal [facility] FOLATEon 11-30-2023 FOLATE RESULT 3.7 ng/mL Normal >=2.9 [facility] Comment on above: Performed By: #### L AB17, GLM109, LAB67, LAB18, LAB69, BLS749 ####Hard Tile Setter: SWATI RATLIFF ([id number])[facility])[address] [place] [address] Folate [Mass/Vol]on 11-30-19 Interpretation and review of laboratory results Normal [facility] HEMOGLOBIN A1Con 11-30-2023 Glucose [Mass/Vol] 197 mg/dL Normal [facility] Comment on above: Performed By: #### L AB90 ####Hard Tile Setter: SWATI RATLIFF ([id number])[facility])[address] [place] [address] HbA1c (Bld) [Mass fraction] 8.5 % High <5.7 [facility] Comment on above: Result Comment: Norm al less than 5.7%Prediabetes 5.7% to 6.4%Diabetes 6.5% or higher--HgbA1C levels may not be accurate in patients who have renal disease, received recent blood transfusions, are anemic, or who have dyshemoglobinemia. Performed By: #### L AB90 ####Hard Tile Setter: SWATI RATLIFF ([id number])[facility])[address] [place] [address] [place] IDNon 11-30-2023 IDN Normal [facility] LIPID PANELon 11-30-2023 Cholesterol [Mass/Vol] 108 mg/dL Normal <200 [facility] Comment on above: Performed By: #### L AB17, VDI390, LAB67, LAB18, LAB69, VMR415 ####Hard Tile Setter: SWATI RATLIFF ([id number])[facility])[address] [place] [address] Cholesterol in HDL [Mass/Vol] 42 mg/dL Normal 40-60 [facility] Comment on above: Performed By: #### L AB17, XSB041, LAB67, LAB18, LAB69, NDR795 ####Hard Tile Setter: SWATI RATLIFF ([id number])[facility])[address] [place] [address] Cholesterol.total/Choles terol in HDL [Mass ratio] 3 {ratio} Normal [facility] Comment on above: Result Comment: Ref Range:< 3 Low Risk for CHD3-6 Mod Risk for CHD> 6 High Risk for CHD Performed By: #### L AB17, LJZ104, LAB67, LAB18, LAB69, IOE739 ####Hard Tile Setter: SWATI RATLIFF ([id number])[facility])[address] [place] [address] LOW DENSITY LIPOPROTEIN 33 mg/dL Normal 0-<100 [facility] Comment on above: Performed By: #### L AB17, DBA091, LAB67, LAB18, LAB69, SKK776 ####Hard Tile Setter: SWATI RATLIFF ([id number])[facility])[address] [place] [address] Triglyceride [Mass/Vol] 166 mg/dL High <150 [facility] Comment on above: Performed By: #### L AB17, RXU619, LAB67, LAB18, LAB69, CYD617 ####Hard Tile Setter: SWATI RATLIFF ([id number])[facility])[address] [place] [address] Laboratory - Chemistry and C hemistry - challengeon 11-30-2023 Glucose [Mass/Vol] 200 mg/dL High 70 - 100 mg/dL [facility] Glucose [Mass/Vol] 139 mg/dL High 70 - 100 mg/dL [facility] Glucose [Mass/Vol] 124 mg/dL High 70 - 100 mg/dL [facility] Cobalamin (Vitamin B12) [Mass/Vol] 167 pg/mL Low 239 - 931 pg/mL [facility] Folate [Mass/Vol] 3.7 ng/mL 2.9 - PINF ng/mL [facility] TSH Qn 1.209 m[IU]/L [facility] Glucose [Mass/Vol] 139 mg/dL High 70 - 100 mg/dL [facility] Troponin I.cardiac [Mass/Vol] ng/mL [facility] ng/mL [facility] Average glucose Estimated from glycated hemoglobin (Bld) [Mass/Vol] 197 mg/dL [facility] Troponin I.cardiac [Mass/Vol] ng/mL NINF - 0.034 ng/mL [facility] Laboratory - Hematology and Cell countson 11-30-2023 HbA1c (Bld) [Mass fraction] 8.5 % High NINF - 5.7 % [facility] Comment on above: Normal less than 5.7 % Prediabetes 5.7% to 6.4% Diabetes 6.5% or higher --HgbA1C levels may not be accurate in patients who have renal disease, received recent blood transfusions, are anemic, or who have dyshemoglobinemia. Lipid 1996 panelon 4 Cholesterol [Mass/Vol] 108 mg/dL NINF - 200 mg/dL [facility] Cholesterol in HDL [Mass/Vol] 42 mg/dL 40 - 60 mg/dL [facility] Cholesterol in LDL [Mass/Vol] 33 mg/dL 0 - <100 [facility] Cholesterol.total/Choles terol in HDL [Mass ratio] 3 {ratio} [facility] Comment on above: Ref Range: < 3 Low Risk for CHD 3-6 Mod Risk for CHD > 6 High Risk for CHD Triglyceride [Mass/Vol] 166 mg/dL High NINF - 150 mg/dL [facility] No Panel Informationon 11-29 Interpretation and review of laboratory results Abnormal [facility] Performed by: [facility], [address] [place] [address] CLIA ID: [id number] [facility] Interpretation and review of laboratory results Abnormal [facility] Performed by: [facility], [address] [place] [address] CLIA ID: [id number] [facility] Interpretation and review of laboratory results Abnormal [facility] Performed by: [facility], [address] [place] [address] CLIA ID: [id number] [facility] Interpretation and review of laboratory results Abnormal [facility] Performed by: [facility], [address] [place] [address] CLIA ID: [id number] [facility] Interpretation and review of laboratory results Abnormal [facility] Interpretation and review of laboratory results Abnormal [facility] P [place] 13 degrees [facility] VT Interval 230 ms [facility] QRS [place] -44 degrees [facility] QRSD [facility]val [facility]val 457 ms [facility] QTC Interval 439 ms [facility] T Wave [place] 122 degrees [facility] Sinus rhythm Prolonged [place] interval Nonspecific IVCD with LAD Abnormal T, consider ischemia, lateral leads Compared to ECG 04/24/23 No significant change Electronically Signed On 11-30-2023 00:44:00 EDT by Sergio Recinos D O - 11/30/2023 IMPRESSION: Sinus rhythm Prolonged VT interval Nonspecific IVCD with LAD Abnormal T, consider ischemia, lateral leads Compared to ECG 04/24/23 No significant change Electronically Signed On 11-30-2023 00:44:00 EDT by Sergio Ruff [facility] Nursing Noteon 11-30-2023 Nursing Note Wound Care arrived t o pt's room for Prevention consult, but pt not in room at present time. Will return as time permits. Please [employer]era for any questions or concerns. Kaycee Ricardo RN Normal [facility] Nursing Note Krissy from [place] called and states James needs to return to baseline before he can return to us, he is usually independent with ADL's and walks safely with his rollator." Krissy's direct line [phone]. Normal [facility] Progress Noteon 11-30-2023 Progress Note Normal [facility] Progress Note Normal [facility] Progress Note PHYSICAL THERAPY [facility] Name/MRN: James Reyes ([id number]) Date: 11/30/2023 Multiple attempts made throughout the day, pt receiving echo, lunch, and OOR. Will attempt as able. Kyle Moreland, PT Normal [facility] Progress Note Speech-Language Pathology Patient passed the Nursing Swallowing Screening and is on a Regular diet, Cardiac: Low fat, Low cholesterol. High Fiber, DEBBIE with Thin liquids. Completed speech orders as per stroke protocol. Normal [facility] Progress Note OCCUPATIONAL THERAPY [facility] Name/MRN: James Reyes ([id number]) Date: 11/30/2023 Performed chart review. Attempted OT eval 10:59 patient is getting Echo completed bedside. Will return to evaluate as schedule permits. Darlin Corea, OT Normal [facility] Progress Note Patient seen and examined at bedside. Refer to Dr. King H&P for further details. See new orders. Flori Striclkand MD Division of Hospitalist Medicine Acute care solutions Normal [facility] THYROID STIMULATING HORMONEo n 11-30-2023 THYROID STIMULATING HORMONE 1.209 uIU/mL Normal 0.465-4.680 [facility] Comment on above: Performed By: #### L [id number], [id number], LAB67, LAB18, LAB69, [id number] ####Hard Tile Setter: SWATI RATLIFF ([id number])[facility])[address] [place] [address] [place] TROPONIN Ion 11-30-2023 Troponin I.cardiac [Mass/Vol] ng/mL Normal <0.034 [facility] Comment on above: Result Comment: ORDE R COMMENTS:Patients with high levels of Biotin oral intake (ie >5 mg/day) may have falsely decreased Troponin levels. Performed By: #### L AB17, [id number], LAB67, LAB18, LAB69, [id number] ####Hard Tile Setter: SWATI RATLIFF ([id number])[facility])[address] [place] [address] [place] TROPONIN, WITH SERIAL REFLEX on 11-30-2023 Troponin I.cardiac [Mass/Vol] ng/mL Normal <0.034 [facility] Comment on above: Result Comment: ORDE R COMMENTS:Patients with high levels of Biotin oral intake (ie >5 mg/day) may have falsely decreased Troponin levels. Performed By: #### L [id number] ####Hard Tile Setter: SWATI RATLIFF ([id number])[facility])[address] [place] [address] [place] TSH Qnon 11-30-2023 Interpretation and review of laboratory results Normal [facility] Troponin I.cardiac [Mass/Vol ]on 11-30-2023 Interpretation and review of laboratory results Normal [facility] Patients with high levels of Biotin oral intake (ie >5 mg/day) may have falsely decreased Troponin levels. [facility] [employer] Interpretation and review of laboratory results Normal [facility] Patients with high levels of Biotin oral intake (ie >5 mg/day) may have falsely decreased Troponin levels. [facility] Heart TransthoracicOrdere d By: Lenora Arzate on 11-30-2023 Ao Root Index 1.56 cm/m2 [facility] Work Phone: Aortic Root 3.9 cm [facility] Work [phone] Aortic Sinus Valsalva 3.9 cm [facility] Work Phone: Aortic Sinus Valsalva Index 1.56 cm/m2 [facility] Work [phone] Ascending Aorta 4.0 cm [facility] Work Phone: [phone] Ascending Aorta Index 1.60 cm/m2 [facility] Work Phone: AV Area by Peak Velocity 1.7 cm2 [facility] Work Phone: [phone] AV Area by VTI 1.6 cm2 [facility] Work Phone: AV Mean Gradient 7 mmHg [facility] Work Phone: AV Mean Velocity 1.2 m/s [facility] Work [phone] AV Peak Gradient 11 mmHg [facility] Work Phone: [phone] AV Peak Velocity 1.7 m/s [facility] Work Phone: [phone] AV Velocity Ratio 0.65 [facility] Work Phone: AV VTI 42.4 cm [facility] Work Phone: KEN/BSA Peak Velocity 0.7 cm2/m2 [facility] Work Phone: EKN/BSA VTI 0.6 cm2/m2 [facility] Work Phone: E/E' Lateral 5.75 [facility] Work Phone: E/E' Ratio (Averaged) 7.80 [facility] [employer] Work Phone: E/E' Septal 9.86 [facility] [employer] Work Phone: EF BP 70 % 55 - 100 % [facility] [employer] Work Phone: Fractional Shortening 2D 31 % 28 - 44 % [facility] [employer] Work Phone: Interpretation and review of laboratory results Abnormal [facility] [employer] Work Phone: IVC Diameter 1.4 cm [facility] [employer] Work Phone: IVSd 1.3 cm Abnormal 0.6 - 1.0 cm [facility] [employer] Work Phone: LA Diameter 5.2 cm [facility] [employer] Work Phone: LA Size Index 2.08 cm/m2 [facility] [employer] Work Phone: [phone] LA Volume 2C 90 mL Abnormal 18 - 58 mL [facility] [employer] Work Phone: [phone] LA Volume 4C 112 mL Abnormal 18 - 58 mL [facility] [employer] Work Phone: LA Volume A/L 107 mL [facility] Work Phone: LA Volume BP 100 mL Abnormal 18 - 58 mL [facility] [employer] Work Phone: LA Volume Index 2C 36 mL/m2 Abnormal 16 - 34 mL/m2 [facility] [employer] Work Phone: LA Volume Index 4C 45 mL/m2 Abnormal 16 - 34 mL/m2 [facility] [employer] Work Phone: LA Volume Index A/L 43 mL/m2 16 - 34 mL/m2 [facility] [employer] Work Phone: LA Volume Index BP 40 ml/m2 Abnormal 16 - 34 ml/m2 [facility] [employer] Work Phone: LA/AO Root Ratio 1.33 [facility] Work Phone: LV E' Lateral Velocity 12 cm/s [facility] Work Phone: LV E' Septal Velocity 7 cm/s [facility] Work Phone: LV EDV A2C 184 mL [facility] Work Phone: LV EDV A4C 155 mL [facility] Work Phone: LV EDV BP 173 mL Abnormal 67 - 155 mL [facility] Work Phone: LV EDV Index A2C 74 mL/m2 [facility] Work Phone: LV EDV Index A4C 62 mL/m2 [facility] Work Phone: LV EDV Index BP 69 mL/m2 [facility] Work Phone: LV Ejection Fraction A2C 68 % [facility] Work Phone: LV Ejection Fraction A4C 71 % [facility] Work Phone: LV ESV A2C 58 mL [facility] Work Phone: LV ESV A4C 46 mL [facility] Work Phone: LV ESV BP 53 mL 22 - 58 mL [facility] Work Phone: LV ESV Index A2C 23 mL/m2 [facility] Work Phone: LV ESV Index A4C 18 mL/m2 [facility] Work Phone: LV ESV Index BP 21 mL/m2 [facility] Work Phone: LV Mass 2D 340.7 g Abnormal 88 - 224 g [facility] Work Phone: LV Mass 2D Index 136.3 g/m2 Abnormal 49 - 115 g/m2 [facility] Work Phone: LV RWT Ratio 0.44 [facility] Work Phone: LVIDd 5.9 cm 4.2 - 5.9 cm [facility] Work Phone: LVIDd Index 2.36 cm/m2 [facility] Work Phone: LVIDs 4.1 cm [facility] Work Phone: LVIDs Index 1.64 cm/m2 [facility] Work Phone: LVOT Area 2.5 cm2 [facility] Work Phone: [phone] LVOT Cardiac Output 4.3 liter/mi nut e [facility] [employer] Work Phone: [phone] LVOT Diameter 1.8 cm [facility] Work Phone: [phone] LVOT Mean Gradient 3 mmHg [facility] [employer] Work Phone: [phone] LVOT Peak Gradient 5 mmHg [facility] [employer] Work Phone: [phone] LVOT Peak Velocity 1.1 m/s [facility] [employer] Work Phone: [phone] LVOT Stroke Volume Index 27.7 mL/m2 [facility] [employer] Work Phone: [phone] LVOT SV 69.2 ml [facility] [employer] Work Phone: [phone] LVOT VTI 27.2 cm [facility] [employer] Work Phone: [phone] LVOT:AV VTI Index 0.64 [facility] [employer] ealth Work Phone: [phone] LVPWd 1.3 cm Abnormal 0.6 - 1.0 cm [facility] [employer] Work Phone: [phone] MV A Velocity 0.89 m/s [facility] Work Phone: [phone] MV E Velocity 0.69 m/s [facility] Work Phone: [phone] MV E Wave Deceleration Time 263.4 ms [facility] [employer] Phone: [phone] MV E/A 0.78 [facility] [employer] Work Phone: [phone] RA Area 4C 78.6 mL [facility] [employer] Work Phone: [phone] RV Free Wall Peak S' 12 cm/s [facility] [employer] Work Phone: [phone] Sinotubular Junction 3.0 cm [facility] [employer] Work Phone: [phone] TAPSE 2.0 cm 1.7 cm [facility] [employer] Work Phone: [phone] [facility] [employer] Work Phone: [phone] Heart Transthoracicon Left Ventricle: Left ventricle size [...] (Vitamin B12) [Mass/Vol] 167 pg/mL Low 239-931 [employer] [facility] Comment on above: Performed By: #### L AB17, [id number], LAB67, LAB18, LAB69, [id number] ####Hard Tile Setter: SWATI RATLIFF ([id number])[facility] ([address] Vital signson 11-30-2023 Heart rate 55 /min bpm [facility] XR ABDOMEN 1 VIEWon 11-30-19 24 XR ABDOMEN 1 VIEW Normal [facility] XR Abdomen Single viewon Nonobstructive bowel gas pattern. No metallic foreign body is identified within the visualized portion of the abdomen and pelvis. Report Dictated on Electronically Signed By: Melvin Scott MD Electronically Signed Date/Time: 11/30/2023 2:50 PM EDT [facility] Patient Name: JAMES REYES : [...] are degenerative changes of the lumbar spine. [facility] Melvin Scott MD - 11/30/2023 Patient [...] Electronically Signed Date/Time: 11/30/2023 2:50 PM EDT [facility] Radiology Study observation (narrative) Nicole lacey XR Abdomen Single viewOrdere d By: Melvin Scott on 11-30-2023 [facility] XR CHEST 1 VIEWon 11-30-2023 XR CHEST 1 VIEW Normal [facility] XR Chest Single viewon 11-29 Coarsening of the interstitial lung markings is likely chronic. No focal consolidation is identified. No metallic foreign body is identified within the chest. Report Dictated on Electronically Signed By: Melvin Scott MD Electronically Signed Date/Time: 11/30/2023 3:00 PM EDT [facility] Patient Name: JAMES REYES DOB: 1955 Exam Date/Time: 11/30/2023 14:35 Procedure: XR [...] are degenerative changes of the thoracic spine. [facility] Melvin Scott MD - 11/30/2023 Patient [...] Electronically Signed Date/Time: 11/30/2023 3:00 PM EDT [facility] Radiology Study observation (narrative) Nicole Mathew alth CBC W Auto Differential pane l (Bld)on 11-29-2023 Basophils (Bld) [#/Vol] 0.0 10*3/uL 0.0 - 0.2 10*3/uL [facility] Basophils/100 WBC (Bld) 0.3 % 0.0 - 2.0 % [facility] Eosinophils (Bld) [#/Vol] 0.1 10*3/uL 0.0 - 0.5 10*3/uL [facility] Eosinophils/100 WBC (Bld) 2.0 % 0.0 - 6.0 % [facility] Erythrocyte distribution width (RBC) [Ratio] 15.6 % High 11.5 - 15.0 % [facility] Hematocrit (Bld) [Volume fraction] 36.9 % Low 40.0 - 52.0 % [facility] Hemoglobin (Bld) [Mass/Vol] 11.7 g/dL Low 13.0 - 18.0 g/dL [facility] Immature granulocytes (Bld) [#/Vol] 0.0 10*3/uL NINF - 0.1 10*3/uL [facility] Immature granulocytes/100 WBC (Bld) 0.3 % 0.0 - 2.0 % [facility] Interpretation and review of laboratory results Abnormal [facility] Lymphocytes (Bld) [#/Vol] 0.9 10*3/uL Low 1.0 - 4.3 10*3/uL [facility] Lymphocytes/100 WBC (Bld) 13.5 % Low 15.0 - 45.0 % [facility] MCH (RBC) [Entitic mass] 30.5 pg 26. 0 - 34.0 pg [facility] MCHC (RBC) [Mass/Vol] 31.7 % 30.5 - 36.0 % [facility] MCV (RBC) [Entitic vol] 96.1 fL 77.0 - 99.0 fL [facility] Monocytes (Bld) [#/Vol] 0.7 10*3/uL 0.0 - 0.9 10*3/uL [facility] Monocytes/100 WBC (Bld) 9.5 % 5.0 - 13.0 % [facility] Neutrophils (Bld) [#/Vol] 5.2 10*3/uL 1.8 - 7.5 10*3/uL [facility] Neutrophils/100 WBC (Bld) 74.4 % 38.0 - 82.0 % [facility] Nucleated RBC/100 WBC (Bld) [Ratio] 0.0 % [facility] Platelet mean volume (Bld) [Entitic vol] 10.3 fL 9.0 - 12.7 fL [facility] Comment on above: MPV is a calculated measurement using platelet volume ratio Platelets (Bld) [#/Vol] 219 10*3/uL 140 - 440 10*3/uL [facility] RBC (Bld) [#/Vol] 3.84 10*6/uL Low 4.40 - 5.9 0 10*6/uL [facility] WBC (Bld) [#/Vol] 7.0 10*3/uL 3.6 - 10.7 10*3/uL [facility] CBC WITH AUTO DIFFERENTIALon 11-29-2023 Basophils (Bld) [#/Vol] 0.0 10*3/uL Normal 0.0-0.2 [facility] Comment on above: Performed By: #### L [id number] ####Hard Tile Setter: SWATI RATLIFF ([id number])[facility] NANCY [employer] ([employer])[address] [place] [address] Basophils/100 WBC (Bld) 0.3 % Normal 0.0-2.0 [facility] Comment on above: Performed By: #### L [id number] ####Hard Tile Setter: SWATI RATLIFF ([id number])[facility] NANCY [employer] ([employer])[address] [place] [address] Eosinophils (Bld) [#/Vol] 0.1 10*3/uL Normal 0.0-0.5 [facility] Comment on above: Performed By: #### L [id number] ####Hard Tile Setter: SWATI RATLIFF ([id number])[facility] [employer] ([facility])[address] [place] [address] [place] Eosinophils/100 WBC (Bld) 2.0 % Normal 0.0-6.0 [facility] Comment on above: Performed By: #### L [id number] ####Hard Tile Setter: SWATI RATLIFF ([id number])[facility] ([facility])[address] [place] [address] Erythrocyte distribution width (RBC) [Ratio] 15.6 % High 11.5-15.0 [facility] Comment on above: Performed By: #### L [id number] ####Hard Tile Setter: SWATI RATLIFF ([id number])[facility] CRUZ [employer] ([facility])[address] [place] [address] Hematocrit (Bld) [Volume fraction] 36.9 % Low 40.0-52.0 [facility] Comment on above: Performed By: #### L [id number] ####Hard Tile Setter: SWATI RATLIFF ([id number])[facility] CR[facility]Z [employer] ([facility])[address] [place] [address] Hemoglobin (Bld) [Mass/Vol] 11.7 g/dL Low 13.0-18.0 [facility] Comment on above: Performed By: #### L [id number] ####Hard Tile Setter: SWATI RATLIFF ([id number])[facility]ITAL[facility] CRUZ [employer] ([facility])[address] [place] [address] IMMATURE GRANS % 0.3 % Normal 0.0-2.0 [facility] Comment on above: Performed By: #### L [id number] ####Hard Tile Setter: SWATI RATLIFF ([id number])[facility] CR[facility]Z [employer] ([facility])[address] [place] [address] IMMATURE GRANS ABSOLUTE 0.0 10*3/uL Normal <0.1 [facility] Comment on above: Performed By: #### L [id number] ####Hard Tile Setter: SWATI RATLIFF ([id number])[facility] [employer] ([facility])[address] [place] [address] Lymphocytes (Bld) [#/Vol] 0.9 10*3/uL Low 1.0-4.3 [facility] Comment on above: Performed By: #### L [id number] ####Hard Tile Setter: SWATI RATLIFF ([id number])[facility] CR[facility]Z [employer] ([facility])[address] [place] [address] Lymphocytes/100 WBC (Bld) 13.5 % Low 15.0-45.0 [facility] Comment on above: Performed By: #### L [id number] ####Hard Tile Setter: SWATI RATLIFF ([id number])[facility] [employer] ([facility])[address] [place] [address] MCH (RBC) [Entitic mass] 30.5 pg Normal 26.0-34.0 [facility] Comment on above: Performed By: #### L [id number] ####Hard Tile Setter: SWATI RATLIFF ([id number])[facility] [employer] ([facility])[address] [place] [address] MCHC 31.7 % Normal 30.5-36.0 [facility] Comment on above: Performed By: #### L [id number] ####Hard Tile Setter: SWATI RATLIFF ([id number])[facility] [employer] ([facility])[address] [place] [address] MCV (RBC) [Entitic vol] 96.1 fL Normal 77.0-99.0 [facility] Comment on above: Performed By: #### L [id number] ####Hard Tile Setter: SWATI RATLIFF ([id number])[employer] ([facility])[address] [place] [address] Monocytes (Bld) [#/Vol] 0.7 10*3/uL Normal 0.0-0.9 [facility] Comment on above: Performed By: #### L [id number] ####Hard Tile Setter: SWATI RATLIFF ([id number])[place] [employer] ([facility])[address] [place] [address] [place] Monocytes/100 WBC (Bld) 9.5 % Normal 5.0-13.0 [facility] Comment on above: Performed By: #### L [id number] ####Hard Tile Setter: SWATI RATLIFF ([id number])[facility] NANCY [facility] ([facility])[address] [place] [address] [place] NEUTROPHILS ABSOLUTE 5.2 10*3/uL Normal 1.8-7.[address] [facility] Comment on above: Performed By: #### L [id number] ####Hard Tile Setter: SWATI RATLIFF ([id number])[place] [employer] ([facility])[address] [place] [address] [place] Neutrophils/100 WBC (Bld) 74.4 % Normal 38.0-82.0 [facility] Comment on above: Performed By: #### L [id number] ####Hard Tile Setter: SWATI RATLIFF ([id number])[place] [employer] ([facility])[address] [place] [address] [place] NRBC 0.0 /100 WBCs Normal 0.0-2.0 [facility] Comment on above: Performed By: #### L [id number] ####Hard Tile Setter: SWATI RATLIFF ([id number])[facility] NANCY [employer] ([facility])[address] [place] [address] Platelet mean volume (Bld) [Entitic vol] 10.3 fL Normal 9.0-12.7 [facility] Comment on above: Result Comment: MPV is a calculated measurement using platelet volume ratio Performed By: #### L [id number] ####Hard Tile Setter: SWATI RATLIFF ([id number])[place] [employer] ([facility])[address] Platelets (Bld) [#/Vol] 219 10*3/uL Normal 140-440 [facility] Comment on above: Performed By: #### L [id number] ####Hard Tile Setter: SWATI RATLIFF ([id number])[facility]ITAL[facility] CRUZ [employer] ([facility])[address] RBC (Bld) [#/Vol] 3.84 10*6/uL Low 4.40-5.90 [facility] Comment on above: Performed By: #### L [id number] ####Hard Tile Setter: SWATI RATLIFF ([id number])[facility] CRUZ [employer] ([facility])[address] WBC (Bld) [#/Vol] 7.0 10*3/uL Normal 3.6-10.7 [facility] Comment on above: Performed By: #### Joyce [id number] ####Hard Tile Setter: SWATI RATLIFF ([id number])[facility] CR[facility]Z [employer] ([facility])[address] COMPREHENSIVE METABOLIC PANE Cricket 11-29-2023 Albumin [Mass/Vol] 3.8 g/dL Normal 3.5-5.0 [facility] Comment on above: Performed By: #### L [id number], LAB17 ####Hard Tile Setter: SWATI RATLIFF ([id number])[facility] CR[facility]Z [employer] ([facility])[address] ALP [Catalytic activity/Vol] 86 U/L Normal 38-126 [facility] Comment on above: Performed By: #### L [id number], LAB17 ####Hard Tile Setter: SWATI RATLIFF ([id number])[facility] CR[facility]Z [employer] ([facility])[address] ALT [Catalytic activity/Vol] 14 U/L Normal 0-49 [facility] Comment on above: Performed By: #### L [id number], LAB17 ####Hard Tile Setter: SWATI RATLIFF ([id number])[facility] CR[facility]Z [employer] ([employer])[address] Anion gap [Moles/Vol] 5 mmol/L Normal 3-[address] [facility] Comment on above: Performed By: #### L [id number], LAB17 ####Hard Tile Setter: SWATI RATLIFF ([id number])[facility] CRUZ [employer] ([employer])[address] AST [Catalytic activity/Vol] 20 U/L Normal 15-46 [facility] Comment on above: Performed By: #### L [id number], LAB17 ####Hard Tile Setter: SWATI RATLIFF ([id number])[facility] CRUZ [employer] ([facility])[address] [place] [address] [place] Bilirubin [Mass/Vol] 0.5 mg/dL Normal 0.2-1.3 [facility] Comment on above: Performed By: #### L [id number], LAB17 ####Hard Tile Setter: SWATI RATLIFF ([id number])[facility] CRUZ [employer] ([facility])[address] [place] [address] [place] Calcium [Mass/Vol] 9.2 mg/dL Normal 8.4-10.4 [facility] Comment on above: Performed By: #### L [id number], LAB17 ####Hard Tile Setter: SWATI RATLIFF ([id number])[facility] CR[facility] [employer] ([facility])[address] [place] [address] [place] Chloride [Moles/Vol] 115 mmol/L High 98-107 [facility] Comment on above: Performed By: #### L [id number], LAB17 ####Hard Tile Setter: SWATI RATLIFF ([id number])[facility] CRUZ [employer] ([facility])[address] [place] [address] [place] CO2 [Moles/Vol] 21 mmol/L Low 22-30 [facility] Comment on above: Performed By: #### L [id number], LAB17 ####Hard Tile Setter: SWATI RATLIFF ([id number])[facility] CRUZ [employer] ([facility])[address] [place] [address] [place] Creatinine [Mass/Vol] 1.13 mg/dL Normal 0.66-1.[address] [facility] Comment on above: Performed By: #### L [id number], LAB17 ####Hard Tile Setter: SWATI RATLIFF ([id number])[facility]ITAL[facility] CRUZ [employer] ([facility])[address] [place] [address] [place] GLOMERULAR FILTRATION RATE ML/MIN/1.73 SQ M.PREDICTED 71.2 mL/min/1.73m*2 Normal >60.0 [facility] Comment on above: Result Comment: Calc ulation based on the Chronic Kidney Disease Epidemiology Collaboration (CKD-EPI) equation refit without adjustment for race Performed By: #### L [id number], LAB17 ####Hard Tile Setter: SWATI RATLIFF ([id number])[facility]ITAL[facility] CR[facility] [employer] ([facility])[address] [place] [address] [place] Glucose [Mass/Vol] 93 mg/dL Normal 70-100 [facility] Comment on above: Performed By: #### L [id number], LAB17 ####Hard Tile Setter: SWATI RATLIFF ([id number])[facility] CRUZ [employer] ([facility])[address] [place] [address] [place] Potassium [Moles/Vol] 4.1 mmol/L Normal 3.5-5.[address] [facility] Comment on above: Performed By: #### L [id number], LAB17 ####Hard Tile Setter: SWATI RATLIFF ([id number])[facility]ITAL[facility] CR[employer]Z [employer] ([facility])[address] [place] [address] [place] Protein [Mass/Vol] 6.3 g/dL Normal 6.3-8.2 [facility] Comment on above: Performed By: #### L [id number], LAB17 ####Hard Tile Setter: SWATI RATLIFF ([id number])[facility]ITAL[facility] NANCY [employer] ([facility])[address] Sodium [Moles/Vol] 141 mmol/L Normal 135-145 [facility] Comment on above: Performed By: #### L [id number], LAB17 ####Hard Tile Setter: SWATI RATLIFF ([id number])[facility]ITAL[facility] NES[employer]MAN (SW[facility])[address] Urea nitrogen [Mass/Vol] 30 mg/dL High 9-20 [facility] Comment on above: Performed By: #### L [id number], LAB17 ####Hard Tile Setter: SWATI RATLIFF ([id number])[facility] HOSPITALPriteo [employer] (SWRLAB)[address] [place] [address] CT CERVICAL SPINE WO IV CONT RASTon 11-29-2023 CT CERVICAL SPINE WO IV CONTRAST Normal [facility] CT Cervical spine WO contras ton 11-29-2023 Patient Name: JAMES REYES : 1955 Exam Date/Time: 11/29/2023 18:06 Procedure: CT CERVICAL [...] Bilateral carotid calcifications, left greater than right. [facility] Primo Millan MD - 11/29/2023 [facility] Name: [facility] : 1955 [id number] Exam Date/Time: 11/29/2023 18:06 Procedure: CT CERVICAL [...] Electronically Signed Date/Time: 11/29/2023 6:28 PM EDT [facility] Radiology Study observation (narrative) [facility] CT HEAD WO IV CONTRASTon CT HEAD WO IV CONTRAST Normal [facility] CT Head WO contraston 2023 Patient Name: [...] Bilateral carotid calcifications, left greater than right. [facility] Primo Millan MD - 11/29/2023 [...] Electronically Signed Date/Time: 11/29/2023 6:28 PM EDT [facility] Radiology Study observation (narrative) [facility] Comprehensive metabolic 1998 panelon 11-29-2023 Albumin [Mass/Vol] 3.8 g/dL 3.5 - 5.0 g/dL [facility] ALP [Catalytic activity/Vol] 86 U/L 38 - 126 U/L [facility] ALT [Catalytic activity/Vol] 14 U/L 0 - 49 U/L [facility] Anion gap [Moles/Vol] 5 mmol/L 3 - 13 mmol/L [facility] AST [Catalytic activity/Vol] 20 U/L 15 - 46 U/L [facility] Bilirubin [Mass/Vol] 0.5 mg/dL 0.2 - 1 .3 mg/dL [facility] Calcium [Mass/Vol] 9.2 mg/dL 8.4 - 10. 4 mg/dL [facility] Chloride [Moles/Vol] 115 mmol/L High 98 - 10 7 mmol/L [facility] CO2 [Moles/Vol] 21 mmol/L Low 22 - 30 mmol/L [facility] Creatinine [Mass/Vol] 1.13 mg/dL 0.66 - 1.25 mg/dL [facility] GFR/1.73 sq M.predicted (S/P/Bld) [Vol rate/Area] 71.2 mL/min - PINF [facility] Comment on above: Calculation based on the Chronic Kidney Disease Epidemiology Collaboration (CKD-EPI) equation refit without adjustment for race Glucose [Mass/Vol] 93 mg/dL 70 - 100 mg/dL [facility] Interpretation and review of laboratory results Abnormal [facility] Potassium [Moles/Vol] 4.1 mmol/L 3.5 - 5.1 mmol/L [facility] Protein [Mass/Vol] 6.3 g/dL 6.3 - 8.2 g/dL [facility] Sodium [Moles/Vol] 141 mmol/L 135 - 145 mmol/L [facility] Urea nitrogen [Mass/Vol] 30 mg/dL High 9 - 20 mg/dL [facility] ED Nursing Noteon 11-29-2023 ED Nursing Note Spoke to sister in [place], and advised that patient is being admitted to [facility] and EMS is on scene for transport Amelia Lopez RN 11/29/23 233 Normal [facility] ED Nursing Note Report to [facility] ambulance crew. Chart to crew for [facility]. Minda Quesada RN 11/29/23 2333 Normal [facility] ED Nursing Note Report called to 4W RNAmelia @ [facility] Minda Quesada RN 11/29/23 2312 [facility] ED Nursing Note Pt's sister in [place], called to ask about pt. Ok to speak to her per pt. Advised about the fall earlier and now having dizziness. She will call back later to check about the results. [phone] Minda Quesada RN 11/29/232051 Normal [facility] ED Nursing Note Pt virtualization consultant light and states now he is feeling dizzy and lightheaded. Dr. Ruff notified Minda Quesada RN 11/29/23 194 Normal [facility] ED Nursing Note Normal [facility] ED Nursing Note Normal [facility] ED Nursing Note Pt'd continous gluco se monitor is going off. Reading 69. Finger stick glucose 84 on arrival. Minda Quesada RN 11/29/23 1611 Normal [facility] ED Nursing Note Normal [facility] ED Provider Noteon 4 ED Provider Note Normal [facility] - Chemistry and C hemistry - challengeon 11-29-2023 Troponin I.cardiac [Mass/Vol] ng/mL NINF - 0.034 ng/mL [facility] Glucose [Mass/Vol] 101 mg/dL High 70 - 100 mg/dL [facility] Glucose [Mass/Vol] 84 mg/dL 70 - 100 mg/dL [facility] Laboratory - Coagulationon 0 11-29-2023 PT Coag (Bld) [Time] 10.9 s 9.0 - 1 2.0 s [facility] No Panel Informationon 11-28 Interpretation and review of laboratory results Abnormal [facility] Performed by: [facility], [address] [place] [address] CLIA ID: [id number] [facility] 1. No acute intracranial findings. Chronic ischemic and atrophic changes. 2. No acute compression deformity or apparent fracture in the cervical spine. Degenerative spondylosis. Report Dictated on Electronically Signed By: Primo Millan MD Electronically Signed Date/Time: 11/29/2023 6:28 PM T [facility] Interpretation and review of laboratory results Normal [facility] Performed by: [facility], [address] [place] [address] CLIA ID: [id number] [facility] No Panel InformationOrdered By: Primo Millan on 11-29-2023 [facility] Work Phone: PROTHROMBIN TIMEon 4 INR Coag (PPP) [Relative time] 1.0 {INR} Normal 0.9-1.1 [facility] Comment on above: Result Comment: Lux [...] Myocardial Infarction Performed By: #### L [id number] ####Hard Tile Setter: SWATI RATLIFF ([id number])[facility]ITAL[facility] CORONADOAN (SWRLAB)[address] [place] [address] PT Coag (PPP) [Time] 10.9 s Normal 9.0-12.0 [facility] Comment on above: Performed By: #### L [id number] ####Hard Tile Setter: SWATI RATLIFF ([id number])[facility]ITAL[facility] NANCYELEUTERIO NESBITTTMAN (SWRLAB)[address] [place] [address] [place] PT Coag (Bld) [Time]on 11-28 INR Coag (PPP) [Relative time] 1.0 {INR} 0.9 - 1.1 [facility] Comment on above: Recommended Anticoag ulant [...] Interpretation and review of laboratory results Normal [facility] TROPONIN, WITH SERIAL REFLEX on 11-29-2023 Troponin I.cardiac [Mass/Vol] ng/mL Normal <0.034 [facility] Comment on above: Result Comment: TAVO Hernandez COMMENTS:Patients with high levels of Biotin oral intake (ie >5 mg/day) may have falsely decreased Troponin levels. Performed By: #### L [id number], [id number] ####Hard Tile Setter: SWATI RATLIFF ([id number])[facility] NANCY CORONADOAN (SWRLAB)[address] [place] [address] [place] Troponin I.cardiac [Mass/Vol ]on 11-29-2023 Interpretation and review of laboratory results Normal [facility] Patients with high levels of Biotin oral intake (ie >5 mg/day) may have falsely decreased Troponin levels. [facility] Patient Instructionson 09-13 Ultrasound Technologist Authentication Interface Message Text Dental extraction Instructions [...] done to speak with an oral surgeon. [facility] [phone]. HELPING THE HEALING PROCESS AND STOPPING THE [...] c (more content not included)... Normal [facility] Progress Noteson 09-14-2023 Ultrasound Technologist Authentication Interface Message Text Attestation signed by Rony Arriaza DMD, MD at 10/11/2023 1:24 PM I was personally present for the white portions of the procedure. Rony Arriaza DMD, MD ORAL SURGERY PROCEDURE ROOM NOTE APS Surgical Product(s): Routine extraction teeth # 21, [...] DMD, MD Resident: Jacqui Glass DDS Assistants: Sonaializ Julius, CDA Procedure in Detail: LA was administered via [...] General Dentistry Jacqui Glass DDS Normal [facility] Progress Noteson 09-06-2023 Ultrasound Technologist Authentication Interface Message Text Attestation signed by [...] with PMHx Coronary artery disease s/pCABG 2014, [facility]- showing patent GREY to the LAD 2017. 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 [Z79.2] Low back [...] unspecified reason [Z91.199] Peripheral vascular disease, unspecified ([facility]) [I73.9] Personal history of COVID-19 [Z86.16] Pseudomonas aeruginosa infection [A49.8] Respiratory failure ([facility]) [J96.90] Shoulder pain, left [M25.512] Spondylosis without myelopathy [M47.819] Tobacco abuse [Z72.0] Type 2 diabetes mellitus treated with insulin ([facility]) [E11.9, Z79.4] Type 2 diabetes mellitus with chronic kidney disease (HCC) [E11.22] Type 2 diabetes mellitus with diabetic polyneuropathy ([facility]) [E11.42] Uncontrolled type 2 diabetes mellitus with hyperglycemia, with long-term current use of insulin ([facility]) [E11.65, Z79.4] Unspecified dementia, moderate, with psychotic disturbance [F03.B2] Vitamin D deficiency, unspecified [E55.9] Sternal wound dehiscence [T81.32XA] Wound disruption, post-op, skin, initial encounter [T81.31XA] REVIEW OF SYSTEMS: A 12-point review of systems was completed. Negative unless otherwise stated in HPI. MEDICATIONS: Current Outpatient Medications Medication Sig Dispense Refill pantoprazole (Protonix) 40 MG tablet 1 tab(s) orally once a day trimethoprim-polymyxin b (POLYTRIM) 78384-7.1 UNIT/ML-% ophthalmic solution qxkjszo-pgmtft-cwuvuiha (CREON) 55665 units capsule Take by mouth. oxyCODONE-acetaminophen (ROXICET) [...] subcutaneou (more content not included)... Normal [facility] Progress Noteson 09-05-2023 Ultrasound Technologist Authentication Interface Message Text Normal [facility] No Panel InformationOrdered By: Nayeli Martinez on 07-14-2023 [facility].4 [facility] Work Phone: [phone] Ascending Aorta Index 1.38 cm/m2 [facility] Work Phone: [phone] AV Area by Peak Velocity 2.5 cm2 [facility] Work Phone: [phone] AV Area by VTI 2.8 cm2 [facility] Work Phone: [phone] AV Mean Gradient 4 mmHg [facility] Work Phone: [phone] AV Mean Velocity 0.9 m/s [facility] Work Phone: [phone] AV Peak Gradient 6 mmHg [facility] Work Phone: [phone] AV Peak Velocity 1.2 m/s [facility] Work Phone: [phone] AV Velocity Ratio 0.75 [facility] Work Phone: [phone] AV VTI 21.0 cm [facility] Work Phone: [phone] KEN/BSA Peak Velocity 1.0 cm2/m2 [facility] Work Phone: [phone] KEN/BSA VTI 1.1 cm2/m2 [facility] Work Phone: [phone] Baseline Diastolic BP 68 mmHg [facility] Work Phone: Baseline HR 71 bpm [facility] Work Phone: Baseline ST Depression 0 mm [facility] Work Phone: [phone] Baseline Systolic BP 121 mmHg [facility] Work Phone: [phone] EF BP 64 % 55 - 100 % [facility] Work Phone: Exercise Duration Seconds 8 sec [facility] Work Phone: Exercise Duration Time 11 min [facility] Work Phone: [phone] Fractional Shortening 2D 41 % 28 - 44 % [facility] Work Phone: Interpretation and review of laboratory results Abnormal [facility] Work Phone: IVSd 1.7 cm Abnormal 0.6 - 1.0 cm [facility] Work Phone: LA Volume 4C 94 mL Abnormal 18 - 58 mL [facility] Work Phone: LA Volume Index 4C 38 mL/m2 Abnormal 16 - 34 mL/m2 [facility] Work Phone: LV EDV A2C 41 mL [facility] Work Phone: LV EDV A4C 127 mL [facility] Work Phone: LV EDV BP 75 mL 67 - 155 mL [facility] Work Phone: LV EDV Index A2C 17 mL/m2 [facility] Work Phone: LV EDV Index A4C 51 mL/m2 [facility] Work Phone: LV EDV Index BP 30 mL/m2 [facility] Work Phone: LV Ejection Fraction A2C 71 % [facility] Work Phone: LV Ejection Fraction A4C 57 % [facility] Work Phone: LV ESV A2C 12 mL [facility] Work Phone: LV ESV A4C 55 mL [facility] Work Phone: LV ESV BP 27 mL 22 - 58 mL [facility] Work Phone: LV ESV Index A2C 5 mL/m2 [facility] Work Phone: [phone] LV ESV Index A4C 22 mL/m2 [facility] Work Phone: [phone] LV ESV Index BP 11 mL/m2 [facility] Work Phone: [phone] LV Mass 2D 309.6 g Abnormal 88 - 224 g [facility] Work Phone: [phone] LV Mass 2D Index 125.3 g/m2 Abnormal 49 - 115 g/m2 [facility] Work Phone: [phone] LV RWT Ratio 0.73 [facility] Work Phone: [phone] LVIDd 4.4 cm 4.2 - 5.9 cm [facility] Work Phone: 95 LVIDd Index 1.78 cm/m2 [facility] Work Phone: [phone] LVIDs 2.6 cm [facility] Work Phone: [phone] LVIDs Index 1.05 cm/m2 [facility] Work Phone: [phone] LVOT Area 3.5 cm2 [facility] Work Phone: [phone] LVOT Cardiac Output 5.0 liter/mi nut e [facility] Work Phone: [phone] LVOT Diameter 2.1 cm [facility] Work Phone: [phone] LVOT Mean Gradient 2 mmHg [facility] Work Phone: [phone] LVOT Peak Gradient 4 mmHg [facility] Work Phone: [phone] LVOT Peak Velocity 0.9 m/s [facility] Work Phone: [phone] LVOT Stroke Volume Index 24.9 mL/m2 [facility] Work Phone: [phone] LVOT SV 61.6 ml [facility] Work Phone: [phone] LVOT VTI 17.8 cm [facility] Work Phone: [phone] LVOT:AV VTI Index 0.85 [facility] Work Phone: [phone] LVPWd 1.6 cm Abnormal 0.6 - 1.0 cm [facility] Work Phone: MV A Velocity 0.75 m/s [facility] Work Phone: MV E Velocity 0.54 m/s [facility] Work Phone: MV E Wave Deceleration Time 189.6 ms [facility] Work Phone: MV E/A 0.72 [facility] Work Phone: Recovery Stage 1 Duration 1:15 min:sec [facility] Work Phone: Recovery Stage 1 HR 130 bpm [facility] Work Phone: Recovery Stage 2 BP 115/44 mmHg [facility] Work Phone: Recovery Stage 2 Duration 2:15 min:sec [facility] Work Phone: Recovery Stage 2 HR 130 bpm [facility] Work Phone: Recovery Stage 3 BP 131/59 mmHg [facility] Work Phone: Recovery Stage 3 Duration 5:15 min:sec [facility] Work Phone: Recovery Stage 3 HR 111 bpm [facility] Work Phone: Recovery Stage 4 Comments no symptoms [facility] Work Phone: Recovery Stage 4 Duration 6:15 min:sec [facility] Work Phone: Recovery Stage 4 HR 100 bpm [facility] Work Phone: Stress Diastolic BP 39 mmHg [facility] Work Phone: Stress Estimated Workload 1.0 METS [facility] Work Phone: Stress Peak HR 130 bpm [facility] Work Phone: Stress Percent HR Achieved 84 % [facility] Work Phone: Stress Rate Pressure Product 25327 bpm*mmHg [facility] Work Phone: Stress ST Depression 0 mm [facility] Work Phone: Stress Stage 1 Duration 0:50 min:sec [facility] Work Phone: Stress Stage 1 HR 73 bpm [facility] Work Phone: Stress Stage 2 Duration 2:50 min:sec S [facility] Work Phone: Stress Stage 2 HR 71 bpm [facility] Work Phone: Stress Stage 3 Duration 5:4 min:sec [facility] Work Phone: Stress Stage 3 HR 88 bpm [facility] Work Phone: Stress Stage 4 BP 116/50 mmHg [facility] Work Phone: Stress Stage 4 Duration 5:50 min:sec S [facility] Work Phone: Stress Stage 4 HR 94 bpm [facility] Work Phone: Stress Stage 5 BP 113/39 mmHg [facility] Work Phone: Stress Stage 5 Duration 8:50 min:sec S [facility] Work Phone: Stress Stage 5 HR 114 bpm [facility] Work Phone: Stress Stage 6 Comments no symptoms [facility] Work Phone: Stress Stage 6 Duration 11:8 min:sec S [facility] Work Phone: Stress Stage 6 HR 130 bpm [facility] Work Phone: Stress Systolic BP 113 mmHg [facility] Work Phone: Stress Target HR 154 bpm [facility] Work Phone: [facility] Work Phone: No Panel Informationon 07-13 Study [...] on 07-13-2023 Bilirubin [Mass/Vol] 0.30 mg/dL 0.20-1.00 [facility] Comment on above: For patients on eltr ombopag therapy, use of Dimension [place] TBIL is not recommended. Chloride [Moles/Vol] 116 mmol/L 98-107 [facility] Cholesterol [Mass/Vol] 96 mg/dL <200 [facility] Comment on above: <200 mg/dL Desirable 200-240 mg/dL Borderline >240 mg/dL High Risk Glucose [Mass/Vol] 122 mg/dL 74-106 [facility] Comment on above: Fasting Glucose resu lt from 100 to 125 mg/dL suggests IMPAIRED HOMEOSTASIS per A.D.A. criteria. Hemoglobin (Bld) [Mass/Vol] 10.1 g/dL 13.0-16.5 [facility] Potassium [Moles/Vol] 4.4 mmol/L 3.5-5.1 [facility] Protein [Mass/Vol] 5.8 g/dL 6.4-8.2 [facility] Sodium [Moles/Vol] 144 mmol/L 136-145 [facility] Triglyceride [Mass/Vol] 88 mg/dL <199 [facility] Comment on above: The drugs N-Acetylcy steine and Metamizole may falsely depress this assay.Serum Triglycerides Reference Interval Normal <150 mg/dL Borderline high 150 - 199 mg/dL High 200 - 499 mg/dL Very High > or = 500 mg/dL WBC (Bld) [#/Vol] 4.8 10*3/uL 4.4-11.0 [facility] Determination of erythrocyte mean corpuscular volume (MCV)Ordered By: Chelle Troncoso on 07-13-2023 MCV (RBC) [Entitic vol] 98.2 fL 80-94 [facility] Erythrocyte distribution wid th ratioOrdered By: Chelle Troncoso on 07-13-2023 Erythrocyte distribution width (RBC) [Ratio] 14.9 % 11.6-14.6 [facility] Erythrocyte distribution wid th standard deviationOrdered By: Chelle Troncoso on 07-13-2023 Erythrocyte distribution width (RBC) [Entitic vol] 53.7 fL 35.1-43.9 [facility] Erythrocyte sedimentation ra teOrdered By: Chelle Troncoso on 07-13-2023 ESR (Bld) [Velocity] 7 mm/h 0-20 [facility] Hematocrit Auto (Bld) [Volum e fraction]Ordered By: Chelle Troncoso on 07-13-2023 Hematocrit (Bld) [Volume fraction] 33.5 % 40-54 [facility] - Chemistry and C hemistry - challengeOrdered By: Chelle Troncoso on 07-13-2023 Albumin/Globulin [Mass ratio] 1.1 {ratio} 0.9-2.4 [facility] ALP [Catalytic activity/Vol] 90 U/L 45-117 [facility] ALT [Catalytic activity/Vol] 18 U/L 16-61 [facility] Cholesterol in HDL [Mass/Vol] 40 mg/dL >40 [facility] Comment on above: The drugs N-Acetylcy steine and Metamizole may falsely depress this assay. Reference Range HDL <40 mg/dL Low HDL Cholesterol HDL >or= 60 mg/dL High HDL Cholesterol Cholesterol in LDL [Mass/Vol] 38 mg/dL 0-130 [facility] CO2 [Moles/Vol] 25.0 mmol/L 21.0-32.0 [facility] Globulin (S) [Mass/Vol] 2.8 g/dL 2.2-4.2 [facility] Urea nitrogen/Creatinine [Mass ratio] 20.7 mg/mg 10-20 [facility] - Hematology and Cell countsOrdered By: Chelle Troncoso on 07-13-2023 MCH (RBC) [Entitic mass] 29.6 pg 27.0-32.0 [facility] MCHC (RBC) [Mass/Vol] 30.1 g/dL 32-36 [facility] Platelet mean volume (Bld) [Entitic vol] 10.9 fL 6.2-12.0 [facility] Platelets (Bld) [#/Vol] 201 10*3/uL 150-450 [facility] No Panel InformationOrdered By: Chelle Troncoso on 07-13-2023 C-Reactive Protein Extended Range < 2.90 mg/L 0.0-3.0 [facility] Comment on above: C-Reactive Protein ( CRP) provides useful information for thediagnosis, therapy and monitoring of inflammatory processesand associated diseases. For the evaluation of Relative Riskfor Cardiovascular Disease, a High Sensitivity CRP (HSCRP)should be ordered. Estimated GFR (MDRD) Amer 85 mL/min >60 [facility] Comment on above: GFR Calc Estimated GFR (MDRD) Non-Af Amer 70 mL/min >60 [facility] Comment on above: Non- GFR Calc VLDL Cholesterol 18 mg/dL 5-40 [facility] RBC Auto (Bld) [#/Vol]Ordere d By: Chelle Troncoso on 07-13-2023 RBC (Bld) [#/Vol] 3.41 10*6/uL 4.6-6.2 [facility] Serum or plasma calcium william urement (mass/volume)Ordered By: Chelle Troncoso on 07-13-2023 Calcium [Mass/Vol] 8.5 mg/dL 8.5-10.1 [facility] Serum or plasma creatinine m easurement (mass/volume)Ordered By: Chelle Troncoso on 07-13-2023 Creatinine [Mass/Vol] 1.11 mg/dL 0.70-1.30 [facility] Comment on above: The validity of the calculated GFR & GFRAA in patients over 70 years has not been determined. Clinical correlation is essential. Serum or plasma urea nitroge n measurement (mass/volume)Ordered By: Chelle Troncoso on 07-13-2023 Urea nitrogen [Mass/Vol] 23 mg/dL 7-18 [facility] Thin prep Papanicolaou smear with manual screeningOrdered By: Chelle Troncoso on 07-13-2023 Thin prep Papanicolaou smear with manual screening 3.0 g/dL 3.2-5.0 [facility] Thin prep Papanicolaou smear with manual screening 7 U/L 15-37 [facility] Thin prep Papanicolaou smear with manual screening 3 5-15 [facility] Whole blood hemoglobin A1c/t otal hemoglobin ratio (mass fraction)Ordered By: Chelle Troncoso on 07-13-2023 HbA1c (Bld) [Mass fraction] 7.7 % 3.8-5.6 [facility] Comment on above: Normal < 5.7 % Predi abetic 5.7 - 6.4 % Diabetic >or= 6.5 % Please note range changes. CNCOon 05-08-2023 CNCO Letter Text Normal [facility] Basophil percentageOrdered B y: Chelle Troncoso on 05-02-2023 Chloride [Moles/Vol] 111 mmol/L 98-107 [facility] Cholesterol [Mass/Vol] 96 mg/dL <200 [facility] Comment on above: <200 mg/dL Desirable 200-240 mg/dL Borderline >240 mg/dL High Risk Glucose [Mass/Vol] 118 mg/dL 74-106 [facility] Comment on above: Fasting Glucose resu lt from 100 to 125 mg/dL suggests IMPAIRED HOMEOSTASIS per A.D.A. criteria. Potassium [Moles/Vol] 4.7 mmol/L 3.5-5.1 [facility] Comment on above: Slight Hemolysis, Re sult may be falsely increased. Sodium [Moles/Vol] 142 mmol/L 136-145 [facility] Triglyceride [Mass/Vol] 86 mg/dL <199 [facility] Comment on above: The drugs N-Acetylcy steine and Metamizole may falsely depress this assay.Serum Triglycerides Reference Interval Normal <150 mg/dL Borderline high 150 - 199 mg/dL High 200 - 499 mg/dL Very High > or = 500 mg/dL Laboratory - Chemistry and C hemistry - challengeOrdered By: Chelle Troncoso on 05-02-2023 Cholesterol in HDL (Body fld) [Mass/Vol] 46 mg/dL >40 [facility] Comment on above: The drugs N-Acetylcy steine and Metamizole may falsely depress this assay. Reference Range HDL <40 mg/dL Low HDL Cholesterol HDL >or= 60 mg/dL High HDL Cholesterol Cholesterol in LDL (Body fld) [Moles/Vol] 33 mg/dL 0-130 [facility] Cholesterol in VLDL Calc [Moles/Vol] 17 mg/dL 5-40 [facility] CO2 [Moles/Vol] 26.0 mmol/L 21.0-32.0 [facility] Urea nitrogen/Creatinine [Mass ratio] 17.0 mg/mg 10-20 [facility] No Panel InformationOrdered By: Chelle Troncoso on 05-02-2023 Estimated GFR (MDRD) Amer 96 mL/min >60 [facility] Comment on above: GFR Calc Estimated GFR (MDRD) Non-Af Amer 79 mL/min >60 [facility] Comment on above: Non- GFR Calc Serum or plasma calcium william urement (mass/volume)Ordered By: Chelle Troncoso on 05-02-2023 Calcium [Mass/Vol] 9.1 mg/dL 8.5-10.1 [facility] Serum or plasma creatinine m easurement (mass/volume)Ordered By: Chelle Troncoso on 05-02-2023 Creatinine [Mass/Vol] 1.00 mg/dL 0.70-1.30 [facility] Comment on above: The validity of the calculated GFR & GFRAA in patients over 70 years has not been determined. Clinical correlation is essential. Serum or plasma urea nitroge n measurement (mass/volume)Ordered By: Chelle Troncoso on 05-02-2023 Urea nitrogen [Mass/Vol] 17 mg/dL 11-01 [facility] Thin prep Papanicolaou smear with manual screeningOrdered By: Chelle Troncoso on 05-02-2023 Thin prep Papanicolaou smear with manual screening 5 - [facility] Whole blood hemoglobin A1c/t otal hemoglobin ratio (mass fraction)Ordered By: Chelle Troncoso on 05-02-2023 HbA1c (Bld) [Mass fraction] 7.6 % 3.8-5.6 [facility] Comment on above: Normal < 5.7 % Predi abetic 5.7 - 6.4 % Diabetic >or= 6.5 % Please note range changes. CBC panel Auto (Bld)Ordered By: Hang Stoner on 04-24-2023 Erythrocyte distribution width (RBC) [Ratio] 15.0 % High 11.5 - 14.5 % [facility] Hematocrit (Bld) [Volume fraction] 31.7 % Low 40.0 - 52.0 % [facility] Hemoglobin (Bld) [Mass/Vol] 10.5 g/dL Low 13.0 - 18.0 g/dL [facility] Interpretation and review of laboratory results Abnormal [facility] MCH (RBC) [Entitic mass] 29.4 pg 26. 0 - 34.0 pg [facility] MCHC (RBC) [Mass/Vol] 33.1 % 32.0 - 36.0 % [facility] MCV (RBC) [Entitic vol] 88.9 fL 80.0 - 98.0 fL [facility] Platelet mean volume (Bld) [Entitic vol] 8.2 fL 7.4 - 12.4 fL [facility] Platelets (Bld) [#/Vol] 166 10*3/uL 140 - 440 10*3/uL [facility] RBC (Bld) [#/Vol] 3.57 10*6/uL Low 4.40 - 5.9 0 10*6/uL [facility] WBC (Bld) [#/Vol] 5.6 10*3/uL 3.6 - 10.7 10*3/uL [facility] Comprehensive metabolic 1998 panelon 04-24-2023 Albumin [Mass/Vol] 3.3 g/dL Low 3.5 - 5.0 g/dL [facility] ALP [Catalytic activity/Vol] 78 U/L 38 - 126 U/L [facility] ALT [Catalytic activity/Vol] 15 U/L 0 - 49 U/L [facility] Anion gap [Moles/Vol] 8 mmol/L 3 - 13 mmol/L [facility] AST [Catalytic activity/Vol] 14 U/L Low 15 - 46 U/L [facility] Bilirubin [Mass/Vol] 0.2 mg/dL 0.2 - 1 .3 mg/dL [facility] Calcium [Mass/Vol] 8.7 mg/dL 8.4 - 10. 4 mg/dL [facility] Chloride [Moles/Vol] 107 mmol/L 98 - 10 7 mmol/L [facility] CO2 [Moles/Vol] 25 mmol/L 22 - 30 mmol/L [facility] Creatinine [Mass/Vol] 0.80 mg/dL 0.66 - 1.25 mg/dL [facility] GFR/1.73 sq M.predicted MDRD (S/P/Bld) [Vol rate/Area] - PINF [facility] Comment on above: Calculation based on the Chronic Kidney Disease Epidemiology Collaboration (CKD-EPI) equation refit without adjustment for race Glucose [Mass/Vol] 189 mg/dL High 70 - 100 mg/dL [facility] Potassium [Moles/Vol] 4.4 mmol/L 3.5 - 5.1 mmol/L [facility] Protein [Mass/Vol] 5.7 g/dL Low 6.3 - 8.2 g/dL [facility] Sodium [Moles/Vol] 140 mmol/L 135 - 145 mmol/L [facility] Urea nitrogen [Mass/Vol] 19 mg/dL 9 - 20 mg/dL [facility] Laboratory - Chemistry and C hemistry - challengeon 04-24-2023 Glucose [Mass/Vol] 159 mg/dL High 70 - 100 mg/dL [facility] Glucose [Mass/Vol] 164 mg/dL High 70 - 100 mg/dL [facility] Troponin I.cardiac [Mass/Vol] ng/mL [facility] ng/mL [facility] Troponin I.cardiac [Mass/Vol] ng/mL [facility] - 0.[facility] ng/mL [facility] Lipid 1996 panelon Cholesterol [Mass/Vol] 82 mg/dL NINF - 200 mg/dL [facility] Cholesterol in HDL [Mass/Vol] 37 mg/dL Low 40 - 60 mg/dL [facility] Cholesterol in LDL [Mass/Vol] 27 mg/dL 0 - <100 [facility] Cholesterol.total/Choles terol in HDL [Mass ratio] 2 {ratio} [facility] Comment on above: Ref Range: < 3 Low Risk for CHD 3-6 Mod Risk for CHD > 6 High Risk for CHD Triglyceride [Mass/Vol] 89 mg/dL [facility] - 150 mg/dL [facility] No Panel Informationon 04-24 Interpretation and review of laboratory results Abnormal [facility] Performed by: [facility], [address] [place] [id number] CLIA ID: [id number] [facility] Interpretation and review of laboratory results Abnormal [facility] Performed by: [facility], [address] [facility] [id number] CLIA ID: [id number] [facility] SINUS RHYTHM PROBABLE LEFT ATRIAL ABNORMALITY NONSPECIFIC INTRAVENTRICULAR CONDUCTION DELAY Electronically Signed On 04-24-2023 04:58:43 EST by Gerardo Vance MD - 04/24/2023 IMPRESSION: SINUS RHYTHM PROBABLE LEFT ATRIAL ABNORMALITY NONSPECIFIC INTRAVENTRICULAR CONDUCTION DELAY Electronically Signed On 04-24-2023 04:58:43 EST by Gerardo Pinto [facility] Interpretation and review of laboratory results Abnormal [facility] [email or web address] [facility] No Panel InformationOrdered By: Gerardo Pinto on 04-24-2023 P [place] 0 degrees [employer] Work Phone: VT Interval 168 ms [employer] Work Phone: QRS [place] -34 degrees [employer] Work Phone: QRSD Interval 118 ms [employer] Work Phone: QT Interval 440 ms [employer] Work Phone: QTC Interval 458 ms [email or web address] [facility] Work Phone: T Wave [place] 102 degrees [employer] Work Phone: [employer] Work Phone: Troponin I.cardiac [Mass/Vol ]on 04-24-2023 Interpretation and review of laboratory results Normal [facility] Patients with high levels of Biotin oral intake (ie >5 mg/day) may have falsely decreased Troponin levels. [facility] [employer] [facility] Interpretation and review of laboratory results Normal [facility] Patients with high levels of Biotin oral intake (ie >5 mg/day) may have falsely decreased Troponin levels. [facility] [employer] [facility] Vital signsOrdered By: Gerardo nieves on 04-24-2023 Heart rate 65 /min bpm [employer] Work Phone: Basic metabolic 1998 panelon 04-23-2023 Anion gap [Moles/Vol] 7 mmol/L 3 - 13 mmol/L [facility] Calcium [Mass/Vol] 8.9 mg/dL 8.4 - 10. 4 mg/dL [facility] Chloride [Moles/Vol] 105 mmol/L 98 - 10 7 mmol/L [facility] CO2 [Moles/Vol] 25 mmol/L 22 - 30 mmol/L [facility] Creatinine [Mass/Vol] 0.86 mg/dL 0.66 - 1.25 mg/dL [facility] GFR/1.73 sq M.predicted MDRD (S/P/Bld) [Vol rate/Area] - PINF [facility] Comment on above: Calculation based on the Chronic Kidney Disease Epidemiology Collaboration (CKD-EPI) equation refit without adjustment for race Glucose [Mass/Vol] 217 mg/dL High 70 - 100 mg/dL [facility] Interpretation and review of laboratory results Abnormal [facility] Potassium [Moles/Vol] 4.6 mmol/L 3.5 - 5.1 mmol/L [facility] Sodium [Moles/Vol] 138 mmol/L 135 - 145 mmol/L [facility] Urea nitrogen [Mass/Vol] 18 mg/dL 9 - 20 mg/dL [facility] CBC W Auto Differential pane l (Bld)Ordered By: Papo Christopher on 04-23-2023 Basophils (Bld) [#/Vol] 0.0 10*3/uL 0.0 - 0.2 10*3/uL [facility] Basophils/100 WBC (Bld) 0.8 % 0.0 - 2.0 % [facility] Eosinophils (Bld) [#/Vol] 0.1 10*3/uL 0.0 - 0.5 10*3/uL [facility] Eosinophils/100 WBC (Bld) 2.5 % 1.0 - 6.0 % [facility] Erythrocyte distribution width (RBC) [Ratio] 14.9 % High 11.5 - 14.5 % [facility] Hematocrit (Bld) [Volume fraction] 34.3 % Low 40.0 - 52.0 % [facility] Hemoglobin (Bld) [Mass/Vol] 11.5 g/dL Low 13.0 - 18.0 g/dL [facility] Interpretation and review of laboratory results Abnormal [facility] Lymphocytes (Bld) [#/Vol] 1.1 10*3/uL 1.0 - 4.3 10*3/uL [facility] Lymphocytes/100 WBC (Bld) 20.0 % 20.0 - 40.0 % [facility] MCH (RBC) [Entitic mass] 29.7 pg 26. 0 - 34.0 pg [facility] MCHC (RBC) [Mass/Vol] 33.5 % 32.0 - 36.0 % [facility] MCV (RBC) [Entitic vol] 88.5 fL 80.0 - 98.0 fL [facility] Monocytes (Bld) [#/Vol] 0.5 10*3/uL 0.0 - 0.8 10*3/uL [facility] Monocytes/100 WBC (Bld) 10.0 % 2.0 - 10.0 % [facility] Neutrophils (Bld) [#/Vol] 3.6 10*3/uL 1.8 - 7.0 10*3/uL [facility] Neutrophils/100 WBC (Bld) 66.7 % 40.0 - 80.0 % [facility] Nucleated RBC/100 WBC (Bld) [Ratio] 0.1 % [facility] Platelet mean volume (Bld) [Entitic vol] 8.5 fL 7.4 - 12.4 fL [facility] Platelets (Bld) [#/Vol] 192 10*3/uL 140 - 440 10*3/uL [facility] RBC (Bld) [#/Vol] 3.87 10*6/uL Low 4.40 - 5.9 0 10*6/uL [facility] WBC (Bld) [#/Vol] 5.4 10*3/uL 3.6 - 10.7 10*3/uL [facility] Laboratory - Chemistry and C hemistry - challengeon 04-23-2023 Troponin I.cardiac [Mass/Vol] ng/mL NINF - 0.034 ng/mL [facility] Troponin I.cardiac [Mass/Vol ]on 04-23-2023 Interpretation and review of laboratory results Normal [facility] Patients with high levels of Biotin oral intake (ie >5 mg/day) may have falsely decreased Troponin levels. [facility] XR Chest Single viewon 04-23 1. No acute findings. Report Dictated on Electronically Signed By: Primo Millan MD Electronically Signed Date/Time: 04/23/2023 8:42 PM [facility] Patient Name: JAMES REYES : [...] No apparent pneumothorax. Bony thorax grossly unremarkable. [facility] Primo Millan MD - 04/23/2023 [...] Electronically Signed Date/Time: 04/23/2023 8:42 PM EST [facility] Radiology Study observation (narrative) [facility] XR Chest Single viewOrdered By: Primo Millan on 04-23-2023 [facility] Work Phone: Basophil percentageOrdered B y: Chelle Troncoso on 12-01-2022 Bilirubin [Mass/Vol] 0.30 mg/dL 0.20-1.00 [facility] Comment on above: For patients on eltr ombopag therapy, use of Dimension [place] TBIL is not recommended. Chloride [Moles/Vol] 115 mmol/L 98-107 [facility] Glucose [Mass/Vol] 192 mg/dL 74-106 [facility] Comment on above: Fasting Glucose resu lt greater than or equal to 126 mg/dL suggests DIABETES MELLITUS per A.D.A. criteria. Potassium [Moles/Vol] 3.8 mmol/L 3.5-5.1 [facility] Protein [Mass/Vol] 5.6 g/dL 6.4-8.2 [facility] Sodium [Moles/Vol] 142 mmol/L 136-145 [facility] WBC (Bld) [#/Vol] 4.1 10*3/uL 4.4-11.0 [facility] Blood erythrocytes count (nu mber/volume)Ordered By: Chelle Troncoso on 12-01-2022 RBC (Bld) [#/Vol] 3.47 10*6/uL 4.6-6.2 [facility] Blood hemoglobin measurement (mass/volume)Ordered By: Chelle Troncoso on 12-01-2022 Hemoglobin (Bld) [Mass/Vol] 10.0 g/dL 13.0-16.5 [facility] Blood platelet mean volumeOr dered By: Chelle Troncoso on 12-01-2022 Platelet mean volume (Bld) [Entitic vol] 10.8 fL 6.2-12.0 [facility] Determination of erythrocyte mean corpuscular volume (MCV)Ordered By: Chelle Troncoso on 12-01-2022 MCV (RBC) [Entitic vol] 93.1 fL 80-94 [facility] Hematocrit Auto (Bld) [Volum e fraction]Ordered By: Chelle Troncoso on 12-01-2022 Hematocrit (Bld) [Volume fraction] 32.3 % 40-54 [facility] Laboratory - Chemistry and C hemistry - challengeOrdered By: Chelle Troncoso on 12-01-2022 ALP [Catalytic activity/Vol] 102 U/L 45-117 [facility] ALT [Catalytic activity/Vol] 17 U/L 16-61 [facility] CO2 [Moles/Vol] 23.0 mmol/L 21.0-32.0 [facility] Globulin (S) [Mass/Vol] 2.7 g/dL 2.2-4.2 [facility] Lipase [Catalytic activity/Vol] 11 U/L 13-75 [facility] Comment on above: Please note:LIPASE r evised reference range effective 22. New Lipase methodology. Expected to produce lower values than the previous assay method. NEW Reference Range: 13 - 75 U/L Magnesium [Mass/Vol] 2.0 mg/dL 1.6-2.6 [facility] Urea nitrogen/Creatinine [Mass ratio] 15.6 mg/mg 10-20 [facility] Laboratory - Hematology and Cell countsOrdered By: Chelle Troncoso on 12-01-2022 Erythrocyte distribution width (RBC) [Entitic vol] 50.5 fL 35.1-43.9 [facility] Erythrocyte distribution width (RBC) [Ratio] 14.7 % 11.6-14.6 [facility] MCH (RBC) [Entitic mass] 28.8 pg 27.0-32.0 [facility] MCHC Auto (RBC) [Mass/Vol]Or dered By: Chelle Troncoso on 12-01-2022 MCHC (RBC) [Mass/Vol] 31.0 g/dL 32-36 [facility] No Panel InformationOrdered By: Chelle Troncoso on 12-01-2022 Estimated GFR (MDRD) Amer 72 mL/min >60 [facility] Comment on above: GFR Calc Estimated GFR (MDRD) Non-Af Amer 60 mL/min >60 [facility] Comment on above: Non- GFR Calc Platelets bldOrdered By: Costa Troncoso on 12-01-2022 Platelets (Bld) [#/Vol] 215 10*3/uL 150-450 [facility] Serum or plasma albumin william urement (mass/volume)Ordered By: Chelle Troncoso on 12-01-2022 Albumin [Mass/Vol] 2.9 g/dL 3.2-5.0 [facility] Serum or plasma albumin/glob ulin mass ratioOrdered By: Chelle Troncoso on 12-01-2022 Albumin/Globulin [Mass ratio] 1.1 {ratio} 0.9-2.4 [facility] Serum or plasma calcium william urement (mass/volume)Ordered By: Chelle Troncoso on 12-01-2022 Calcium [Mass/Vol] 8.7 mg/dL 8.5-10.1 [facility] Serum or plasma creatinine m easurement (mass/volume)Ordered By: Chelle Troncoso on 12-01-2022 Creatinine [Mass/Vol] 1.28 mg/dL 0.70-1.30 [facility] Comment on above: The validity of the calculated GFR & GFRAA in patients over 70 years has not been determined. Clinical correlation is essential. Serum or plasma urea nitroge n measurement (mass/volume)Ordered By: Chelle Troncoso on 12-01-2022 Urea nitrogen [Mass/Vol] 20 mg/dL 7-18 [facility] Thin prep Papanicolaou smear with manual screeningOrdered By: Chelle Troncoso on 12-01-2022 Thin prep Papanicolaou smear with manual screening 9 U/L 15-37 [facility] Thin prep Papanicolaou smear with manual screening 4 5-15 [facility] Basophil percentageOrdered B y: Chelle Troncoso on 10-13-2022 Bilirubin [Mass/Vol] 0.30 mg/dL 0.20-1.00 [facility] Comment on above: For patients on eltr ombopag therapy, use of Dimension [place] TBIL is not recommended. Chloride [Moles/Vol] 110 mmol/L 98-107 [facility] Cholesterol [Mass/Vol] 78 mg/dL <200 [facility] Comment on above: <200 mg/dL Desirable 200-240 mg/dL Borderline >240 mg/dL High Risk Glucose [Mass/Vol] 237 mg/dL 74-106 [facility] Comment on above: Glucose result great er than or equal to 200 mg/dLsuggests DIABETES MELLITUS per A.D.A. criteria. Potassium [Moles/Vol] 4.4 mmol/L 3.5-5.1 [facility] Protein [Mass/Vol] 5.9 g/dL 6.4-8.2 [facility] Sodium [Moles/Vol] 141 mmol/L 136-145 [facility] Triglyceride [Mass/Vol] 79 mg/dL <199 [facility] Comment on above: The drugs N-Acetylcy steine and Metamizole may falsely depress this assay.Serum Triglycerides Reference Interval Normal <150 mg/dL Borderline high 150 - 199 mg/dL High 200 - 499 mg/dL Very High > or = 500 mg/dL WBC (Bld) [#/Vol] 5.4 10*3/uL 4.4-11.0 [facility] Blood erythrocytes count (nu mber/volume)Ordered By: Chelle Troncoso on 10-13-2022 RBC (Bld) [#/Vol] 3.46 10*6/uL 4.6-6.2 [facility] Blood hemoglobin measurement (mass/volume)Ordered By: Chelle Troncoso on 10-13-2022 Hemoglobin (Bld) [Mass/Vol] 10.2 g/dL 13.0-16.5 [facility] Blood platelet mean volumeOr dered By: Chelle Troncoso on 10-13-2022 Platelet mean volume (Bld) [Entitic vol] 11.0 fL 6.2-12.0 [facility] Determination of erythrocyte mean corpuscular volume (MCV)Ordered By: Chelle Troncoso on 10-13-2022 MCV (RBC) [Entitic vol] 93.9 fL 80-94 [facility] Hematocrit Auto (Bld) [Volum e fraction]Ordered By: Chelle Troncoso on 10-13-2022 Hematocrit (Bld) [Volume fraction] 32.5 % 40-54 [facility] Laboratory - Chemistry and C hemistry - challengeOrdered By: Chelle Troncoso on 10-13-2022 ALP [Catalytic activity/Vol] 100 U/L 45-117 [facility] ALT [Catalytic activity/Vol] 17 U/L 16-61 [facility] CO2 [Moles/Vol] 26.0 mmol/L 21.0-32.0 [facility] Globulin (S) [Mass/Vol] 2.9 g/dL 2.2-4.2 [facility] Urea nitrogen/Creatinine [Mass ratio] 23.5 mg/mg 10-20 [facility] - Hematology and Cell countsOrdered By: Chelle Troncoso on 10-13-2022 Erythrocyte distribution width (RBC) [Entitic vol] 52.2 fL 35.1-43.9 [facility] Erythrocyte distribution width (RBC) [Ratio] 15.2 % 11.6-14.6 [facility] MCH (RBC) [Entitic mass] 29.5 pg 27.0-32.0 [facility] MCHC Auto (RBC) [Mass/Vol]Or dered By: Chelle Troncoso on 10-13-2022 MCHC (RBC) [Mass/Vol] 31.4 g/dL 32-36 [facility] No Panel InformationOrdered By: Chelle Troncoso on 10-13-2022 Estimated GFR (MDRD) Amer 67 mL/min >60 [facility] Comment on above: GFR Calc Estimated GFR (MDRD) Non-Af Amer 56 mL/min >60 [facility] Comment on above: Non- GFR Calc Platelets bldOrdered By: Costa Troncoso on 10-13-2022 Platelets (Bld) [#/Vol] 200 10*3/uL 150-450 [facility] Serum or plasma albumin william urement (mass/volume)Ordered By: Chelle Troncoso on 10-13-2022 Albumin [Mass/Vol] 3.0 g/dL 3.2-5.0 [facility] Serum or plasma albumin/glob ulin mass ratioOrdered By: Chelle Troncoso on 10-13-2022 Albumin/Globulin [Mass ratio] 1.0 {ratio} 0.9-2.4 [facility] Serum or plasma calcium william urement (mass/volume)Ordered By: Chelle Troncoso on 10-13-2022 Calcium [Mass/Vol] 8.4 mg/dL 8.5-10.1 [facility] Serum or plasma cholesterol in HDL measurement (mass/volume)Ordered By: Chelle Troncoso on 10-13-2022 Cholesterol in HDL [Mass/Vol] 40 mg/dL >40 [facility] Comment on above: The drugs N-Acetylcy steine and Metamizole may falsely depress this assay. Reference Range HDL <40 mg/dL Low HDL Cholesterol HDL >or= 60 mg/dL High HDL Cholesterol Serum or plasma cholesterol in VLDL measurement (mass/volume)Ordered By: Chelle Troncoso on 10-13-2022 Cholesterol in VLDL [Mass/Vol] 16 mg/dL 5-40 [facility] Serum or plasma creatinine m easurement (mass/volume)Ordered By: Chelle Troncoso on 10-13-2022 Creatinine [Mass/Vol] 1.36 mg/dL 0.70-1.30 [facility] Comment on above: The validity of the calculated GFR & GFRAA in patients over 70 years has not been determined. Clinical correlation is essential. Serum or plasma low density lipoprotein (LDL) cholesterol measurement (mass/volume)Ordered By: Chelle Troncoso on 10-13-2022 Cholesterol in LDL [Mass/Vol] 22 mg/dL 0-130 [facility] Serum or plasma urea nitroge n measurement (mass/volume)Ordered By: Chelle Troncoso on 10-13-2022 Urea nitrogen [Mass/Vol] 32 mg/dL 7-18 [facility] Thin prep Papanicolaou smear with manual screeningOrdered By: Chelle Troncoso on 10-13-2022 Thin prep Papanicolaou smear with manual screening 11 U/L 15-37 [facility] Thin prep Papanicolaou smear with manual screening 5 5-15 [facility] Whole blood hemoglobin A1c/t otal hemoglobin ratio (mass fraction)Ordered By: Chelle Troncoso on 10-13-2022 HbA1c (Bld) [Mass fraction] 7.6 % 3.8-5.6 [facility] Comment on above: Normal < 5.7 % Predi abetic 5.7 - 6.4 % Diabetic >or= 6.5 % Please note range changes. Basophil percentageOrdered B y: Chelle Troncoso on 10-12-2022 Bilirubin [Mass/Vol] 0.20 mg/dL 0.20-1.00 [facility] Comment on above: For patients on eltr ombopag therapy, use of Dimension [place] TBIL is not recommended. Chloride [Moles/Vol] 108 mmol/L 98-107 [facility] Cholesterol [Mass/Vol] 80 mg/dL <200 [facility] Comment on above: <200 mg/dL Desirable 200-240 mg/dL Borderline >240 mg/dL High Risk Glucose [Mass/Vol] 314 mg/dL 74-106 [facility] Comment on above: Glucose result great er than or equal to 200 mg/dLsuggests DIABETES MELLITUS per A.D.A. criteria. Potassium [Moles/Vol] 4.4 mmol/L 3.5-5.1 [facility] Protein [Mass/Vol] 5.9 g/dL 6.4-8.2 [facility] Sodium [Moles/Vol] 137 mmol/L 136-145 [facility] Triglyceride [Mass/Vol] 99 mg/dL <199 [facility] Comment on above: The drugs N-Acetylcy steine and Metamizole may falsely depress this assay.Serum Triglycerides Reference Interval Normal <150 mg/dL Borderline high 150 - 199 mg/dL High 200 - 499 mg/dL Very High > or = 500 mg/dL WBC (Bld) [#/Vol] 6.2 10*3/uL 4.4-11.0 [facility] Blood erythrocytes count (nu mber/volume)Ordered By: Chelle Troncoso on 10-12-2022 RBC (Bld) [#/Vol] 3.50 10*6/uL 4.6-6.2 [facility] Blood hemoglobin measurement (mass/volume)Ordered By: Chelle Troncoso on 10-12-2022 Hemoglobin (Bld) [Mass/Vol] 10.2 g/dL 13.0-16.5 [facility] Blood platelet mean volumeOr dered By: Chelle Troncoso on 10-12-2022 Platelet mean volume (Bld) [Entitic vol] 10.9 fL 6.2-12.0 [facility] Determination of erythrocyte mean corpuscular volume (MCV)Ordered By: Chelle Troncoso on 10-12-2022 MCV (RBC) [Entitic vol] 94.9 fL 80-94 [facility] Hematocrit Auto (Bld) [Volum e fraction]Ordered By: Chelle Troncoso on 10-12-2022 Hematocrit (Bld) [Volume fraction] 33.2 % 40-54 [facility] - Chemistry and C hemistry - challengeOrdered By: Chelle Troncoso on 10-12-2022 ALP [Catalytic activity/Vol] 104 U/L 45-117 [facility] ALT [Catalytic activity/Vol] 20 U/L 16-61 [facility] CO2 [Moles/Vol] 25.0 mmol/L 21.0-32.0 [facility] Globulin (S) [Mass/Vol] 2.9 g/dL 2.2-4.2 [facility] Urea nitrogen/Creatinine [Mass ratio] 20.8 mg/mg 10-20 [facility] - Hematology and Cell countsOrdered By: Chelle Troncoso on 10-12-2022 Erythrocyte distribution width (RBC) [Entitic vol] 52.6 fL 35.1-43.9 [facility] Erythrocyte distribution width (RBC) [Ratio] 15.1 % 11.6-14.6 [facility] MCH (RBC) [Entitic mass] 29.1 pg 27.0-32.0 [facility] Auto (RBC) [Mass/Vol]Or dered By: Chelle Troncoso on 10-12-2022 MCHC (RBC) [Mass/Vol] 30.7 g/dL 32-36 [facility] No Panel InformationOrdered By: Chelle Troncoso on 10-12-2022 Estimated GFR (MDRD) Amer 63 mL/min >60 [facility] Comment on above: GFR Calc Estimated GFR (MDRD) Non-Af Amer 52 mL/min >60 [facility] Comment on above: Non- GFR Calc Thyroid Stimulating Hormone (TSH) 2.41 uIU/mL 0.358-3.74 [facility] Vitamin D 25-Hydroxy 61.6 ng/mL [facility] Comment on above: Vitamin D 25(OH) Sta tus Range Deficiency <20 ng/mL (50nmol/L) Insufficiency 20 - 30 ng/mL (50 - 75 nmol/L) Sufficiency 30 - 100 ng/mL (75 - 250 nmol/L) Toxicity >100 ng/mL (>250 nmol/L) Platelets bldOrdered By: Costa Troncoso on 10-12-2022 Platelets (Bld) [#/Vol] 203 10*3/uL 150-450 [facility] Serum or plasma albumin william urement (mass/volume)Ordered By: Chelle Troncoso on 10-12-2022 Albumin [Mass/Vol] 3.0 g/dL 3.2-5.0 [facility] Serum or plasma albumin/glob ulin mass ratioOrdered By: Chelle Troncoso on 10-12-2022 Albumin/Globulin [Mass ratio] 1.0 {ratio} 0.9-2.4 [facility] Serum or plasma calcium william urement (mass/volume)Ordered By: Chelle Troncoso on 10-12-2022 Calcium [Mass/Vol] 8.5 mg/dL 8.5-10.1 [facility] Serum or plasma cholesterol in HDL measurement (mass/volume)Ordered By: Chelle Troncoso on 10-12-2022 Cholesterol in HDL [Mass/Vol] 36 mg/dL >40 [facility] Comment on above: The drugs N-Acetylcy steine and Metamizole may falsely depress this assay. Reference Range HDL <40 mg/dL Low HDL Cholesterol HDL >or= 60 mg/dL High HDL Cholesterol Serum or plasma cholesterol in VLDL measurement (mass/volume)Ordered By: Chelle Troncoso on 10-12-2022 Cholesterol in VLDL [Mass/Vol] 20 mg/dL 5-40 [facility] Serum or plasma creatinine m easurement (mass/volume)Ordered By: Chelle Troncoso on 10-12-2022 Creatinine [Mass/Vol] 1.44 mg/dL 0.70-1.30 [facility] Comment on above: The validity of the calculated GFR & GFRAA in patients over 70 years has not been determined. Clinical correlation is essential. Serum or plasma low density lipoprotein (LDL) cholesterol measurement (mass/volume)Ordered By: Chelle Troncoso on 10-12-2022 Cholesterol in LDL [Mass/Vol] 24 mg/dL 0-130 [facility] Serum or plasma urea nitroge n measurement (mass/volume)Ordered By: Chelle Troncoso on 10-12-2022 Urea nitrogen [Mass/Vol] 30 mg/dL 7-18 [facility] Thin prep Papanicolaou smear with manual screeningOrdered By: Chelle Troncoso on 10-12-2022 Thin prep Papanicolaou smear with manual screening 11 U/L 15-37 [facility] Thin prep Papanicolaou smear with manual screening 4 5-15 [facility] Whole blood hemoglobin A1c/t otal hemoglobin ratio (mass fraction)Ordered By: Chelle Troncoso on 10-12-2022 HbA1c (Bld) [Mass fraction] 7.6 % 3.8-5.6 [facility] Comment on above: Normal < 5.7 % Predi abetic 5.7 - 6.4 % Diabetic >or= 6.5 % Please note range changes. US Heart TransthoracicOrdere d By: Shannan Corcoran on 04-27-2022 Aortic Arch 2.9 cm [facility] [employer] Work Phone: Aortic Sinus Valsalva 3.8 cm [facility] [employer] Work Phone: Aortic Sinus Valsalva Index 1.50 cm/m2 [facility] [employer] Work Phone: Ascending Aorta 3.7 [facility] Work Phone: Ascending Aorta Index 1.46 cm/m2 [facility] [employer] Work Phone: E/E' Lateral 6.85 [facility] [employer] Work Phone: E/E' Ratio (Averaged) 8.99 [facility] [employer] Work Phone: E/E' Septal 11.13 [facility] [employer] Work Phone: EF BP 75 % 55 - 100 % [facility] [employer] Work Phone: Fractional Shortening 2D 24 % 28 - 44 % [facility] [employer] Work Phone: Interpretation and review of laboratory results Abnormal [facility] [employer] Work Phone: IVC Diameter 1.7 cm [facility] [employer] Work Phone: IVSd 1.9 cm Abnormal 0.6 - 1.0 cm [facility] [employer] Work Phone: LA Diameter 5.0 cm [facility] [employer] Work Phone: LA Size Index 1.97 cm/m2 [facility] [employer] Work Phone: LA Volume 2C 49 mL 18 - 58 mL [facility] [employer] Work Phone: LA Volume 4C 93 mL Abnormal 18 - 58 mL [facility] [employer] Work Phone: LA Volume A/L 74 mL [facility] [employer] Work Phone: LA Volume Index 2C 19 mL/m2 16 - 34 mL/m2 [facility] [employer] Work Phone: LA Volume Index 4C 37 mL/m2 Abnormal 16 - 34 mL/m2 [facility] [employer] Work Phone: LA Volume Index A/L 29 mL/m2 16 - 34 mL/m2 [facility] [employer] Work Phone: LV E' Lateral Velocity 13 cm/s [facility] [employer] Work Phone: LV E' Septal Velocity 8 cm/s [facility] [employer] Work Phone: LV EDV A2C 93 mL [facility] [employer] Work Phone: LV EDV A4C 147 mL [facility] Work Phone: LV EDV BP 124 mL 67 - 155 mL [facility] Work Phone: LV EDV Index A2C 37 mL/m2 [facility] Work Phone: LV EDV Index A4C 58 mL/m2 [facility] Work Phone: LV EDV Index BP 49 mL/m2 [facility] Work Phone: LV Ejection Fraction A2C 84 % [facility] Work Phone: LV Ejection Fraction A4C 67 % [facility] Work Phone: LV ESV A2C 15 mL [facility] Work Phone: LV ESV A4C 49 mL [facility] Work Phone: LV ESV BP 30 mL 22 - 58 mL [facility] Work Phone: LV ESV Index A2C 6 mL/m2 [facility] Work Phone: LV ESV Index A4C 19 mL/m2 [facility] Work Phone: LV ESV Index BP 12 mL/m2 [facility] Work Phone: LV Mass 2D 381.1 g Abnormal 88 - 224 g [facility] Work Phone: LV Mass 2D Index 150.0 g/m2 Abnormal 49 - 115 g/m2 [facility] Work Phone: LV RWT Ratio 0.95 [facility] Work Phone: LVIDd 4.2 cm 4.2 - 5.9 cm [facility] Work Phone: LVIDd Index 1.65 cm/m2 [facility] Work Phone: LVIDs 3.2 cm [facility] Work Phone: LVIDs Index 1.26 cm/m2 [facility] Work Phone: LVOT Area 4.2 cm2 [facility] [employer] Work Phone: LVOT Cardiac Output 8.0 liter/mi nut e [facility] [employer] Work Phone: LVOT Diameter 2.3 cm [facility] Work Phone: LVOT Mean Gradient 4 mmHg [facility] [employer] Work Phone: LVOT Peak Gradient 9 mmHg [facility] [employer] Work Phone: LVOT Peak Velocity 1.5 m/s [facility] [employer] Work Phone: LVOT Stroke Volume Index 45.8 mL/m2 [facility] [employer] Work Phone: LVOT SV 116.3 ml [facility] [employer] Work Phone: LVOT VTI 28.0 cm [facility] [employer] Work Phone: LVPWd 2.0 cm Abnormal 0.6 - 1.0 cm [facility] [employer] Work Phone: MV A Velocity 0.59 m/s [facility] Work Phone: MV E Velocity 0.89 m/s [facility] Work Phone: MV E Wave Deceleration Time 270.2 ms [facility] [employer] Work Phone: MV E/A 1.51 [facility] [employer] Work Phone: RV Basal Dimension 3.1 cm [facility] [employer] Work Phone: RV Free Wall Peak S' 9 cm/s [facility] [employer] Work Phone: RV Mid Dimension 2.6 cm [facility] Work Phone: Sinotubular Junction 3.1 cm [facility] [employer] Work Phone: TAPSE 2.2 cm 1.7 cm [facility] [employer] Work Phone: [facility] [employer] Work Phone: Heart Transthoracicon Left Ventricle: Left [...] Additional Conclusions Technically difficult study. CV CPACS [facility] 07-28-2021 [facility] HNO ID: [id number] Author: RT Wagner(R) Service: ? 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 Filed: 07/28/2021 11:34 AM [...] July 28, 2021 11:34 AM Normal [facility] CBC panel Auto (Bld)on 07-28 Erythrocyte distribution width (RBC) [Ratio] 15.0 % Normal 11.5-15.0 [facility] Comment on above: Order Comment: Speci keny Type: BLOOD SPECIMENOrdering Facility: [facility] Address: [address] [place] [address] Performed By: #### 5 8410-2 ####[facility] LABORATORYCLIA [id number] [address] OF [facility] Hematocrit (Bld) [Volume fraction] 36.6 % Low 39.0-51.0 [facility] Comment on above: Order Comment: Crystal bustillo Type: BLOOD SPECIMENOrdering Facility: [facility] Address: [address] [place] [address] Performed By: #### 5 8410-2 ####[facility]ORATORYCLIA [id number] [address] STATES OF [facility] Hemoglobin (Bld) [Mass/Vol] 11.6 g/dL Low 13.0-17.0 [facility] Comment on above: Order Comment: Crystal bustillo Type: BLOOD SPECIMENOrdering Facility: [facility] Address: [address] [address] Performed By: #### 5 8410-2 ####[facility]ORATORYCLIA [id number] [address] [place] MCH (RBC) [Entitic mass] 28.3 pg Normal 26.0-34.0 [facility] Comment on above: Order Comment: Speci men Type: BLOOD SPECIMENOrdering Facility: [facility] Address: [address] [place] [address] Performed By: #### 5 8410-2 ####[facility]ORATORYCLIA [id number] [address] MCHC (RBC) [Mass/Vol] 31.7 g/dL Normal 30.5-36.0 [facility] Comment on above: Order Comment: Speci men Type: BLOOD SPECIMENOrdering Facility: [facility] Address: [address] [place] [address] Performed By: #### 5 8410-2 ####[facility]ORATORYCLIA [id number] [address] MCV (RBC) [Entitic vol] 89.3 fL Normal 80.0-100.0 [place] Comment on above: Order Comment: Speci men Type: BLOOD SPECIMENOrdering Facility: [facility] Address: [address] [place] [address] Performed By: #### 5 8410-2 ####[facility]ORATORYCLIA [id number] [address] Nucleated RBC (Bld) [#/Vol] 10*3/uL Normal <0.01 [facility] Comment on above: Order Comment: Speci men Type: BLOOD SPECIMENOrdering Facility: [facility] Address: [address] [place] [address] Performed By: #### 5 8410-2 ####[facility]ORATORYCLIA [id number] [address] Platelet mean volume (Bld) [Entitic vol] 10.3 fL Normal 9.0-12.7 [facility] Comment on above: Order Comment: Speci men Type: BLOOD SPECIMENOrdering Facility: [facility] Address: [address] [place] [address] Performed By: #### 5 8410-2 ####[facility]ORATORYCLIA [id number] [address] Platelets (Bld) [#/Vol] 377 10*3/uL Normal 150-400 [facility] Comment on above: Order Comment: Speci men Type: BLOOD SPECIMENOrdering Facility: [facility] Address: [address] [place] [address] Performed By: #### 5 8410-2 ####[facility]ATORYCLIA [id number] [address] RBC (Bld) [#/Vol] 4.10 10*6/uL Low 4.20-6.00 [facility] Comment on above: Order Comment: Speci men Type: BLOOD SPECIMENOrdering Facility: [facility] Address: [address] [place] [address] Performed By: #### 5 8410-2 ####[facility]ATORYCLIA [id number] [address] WBC (Bld) [#/Vol] 16.69 10*3/uL High 3.70-11.00 [facility] Comment on above: Order Comment: Speci men Type: BLOOD SPECIMENOrdering Facility: [facility] Address: [address] [place] [address] Performed By: #### 5 8410-2 ####[facility]ATORYCLIA [id number] [address] CNDSon 07-28-2021 DS HNO ID: [id number] Author: Rosalie Dorantes DO Service: Critical Care [...] ? Mr. 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 Normal [facility] CONSULT PROGon 07-28-2021 CONSULT PROG HNO ID: [id number] Author: James Mai MD Service: Endocrinology Author [...] by left diabetic foot ulcer and neuropathy, [facility] resident, CAD status post CABG, [place], chronic [...] of metformin ? HbA1c: No data in [facility]. Review of systems: Constitutional: No new [...] Units (more content not included)... Normal [facility] NURSING PROGon 07-28-2021 NURSING PROG HNO ID: [id number] Author: Wilmar Vigil RN Service: ? Author Type: Registered Nurse Type: Nursing Progress Note Filed: 07/28/2021 7:20 PM Note Text: Nursing Progress Note Patient Name: James Reyes Patient Location: [place] [id number] 10-15 Daily Note: Nurse to nurse given to MARLEY Pichardo at [facility] [place]. Patient transport set up for 7pm. All questions answered. It was requested by Kylee that the chaudhari and IV's be left in place. Patient will be discharged with coude chaudhari, 20 left AC PIV, and 20 right AC PIV. Patient in stable condition. This note was completed by: Wilmar Mascorro [facility] PROCALCITONIN (LAB)on 2021 Procalcitonin [Mass/Vol] 0.09 ng/mL High <0.09 [facility] Comment on above: Order Comment: Crystal bustillo Type: BLOOD SPECIMENOrdering Facility: [facility] Address: [address] [address] Result Comment: For a guided interpretation of test results, please visit the Change in Procalcitonin Calculator, [email or web address]. Performed By: #### 2 4362-6, PROCAL ####[facility]ORATORYCLIA [id number] [address] [place] Renal function 2000 panelon 07-28-2021 Albumin [Mass/Vol] 2.5 g/dL Low 3.9-4.9 [facility] Comment on above: Order Comment: Crystal bustillo Type: BLOOD SPECIMENOrdering Facility: [facility] Address: [address] [address] Performed By: #### 2 4362-6, PROCAL ####[facility]ORATORYCLIA [id number] [address] STATES OF [facility] Anion gap [Moles/Vol] 9 mmol/L Normal 9-18 [facility] Comment on above: Order Comment: Crystal bustillo Type: BLOOD SPECIMENOrdering Facility: [facility] Address: [address] [address] Performed By: #### 2 4362-6, PROCAL ####[facility]ORATORYCLIA [id number] [place] [address] [place] Calcium [Mass/Vol] 8.2 mg/dL Low 8.5-10.2 [facility] Comment on above: Order Comment: Speci men Type: BLOOD SPECIMENOrdering Facility: [facility] Address: [address] [place] [address] Performed By: #### 2 4362-6, PROCAL ####[facility] LABORATORYCLIA [id number] [place] [address] [place] Chloride [Moles/Vol] 95 mmol/L Low 97-105 [facility] Comment on above: Order Comment: Speci men Type: BLOOD SPECIMENOrdering Facility: [facility] Address: [address] [place] [address] Performed By: #### 2 4362-6, PROCAL ####[facility] LABORATORYCLIA [id number] [place] [address] [place] CO2 [Moles/Vol] 30 mmol/L Normal 22-30 [facility] Comment on above: Order Comment: Speci men Type: BLOOD SPECIMENOrdering Facility: [facility] Address: [address] [place] [address] Performed By: #### 2 4362-6, PROCAL ####[facility]ORATORYCLIA [id number] [place] [address] [place] Creatinine [Mass/Vol] 1.28 mg/dL High 0.73-1.22 [facility] Comment on above: Order Comment: Speci men Type: BLOOD SPECIMENOrdering Facility: [facility] Address: [address] [place] [address] Performed By: #### 2 4362-6, PROCAL ####[facility]ORATORYCLIA [id number] [address] [place] ESTIMATED GLOMERULAR FILTRATION RATE 62 mL/min/1.73m??? Normal >=60 [facility] Comment on above: Order Comment: Crystal bustillo Type: BLOOD SPECIMENOrdering Facility: [facility] Address: [address] [place], [place] [address] Result Comment: Anu mated Glomerular Filtration Rate [...] GFR. Performed By: #### 2 4362-6, PROCAL ####[facility]ORATORYCLIA [id number] [place] [address] [place] Glucose [Mass/Vol] 275 mg/dL High 74-99 [facility] Comment on above: Order Comment: Crystal bustillo Type: BLOOD SPECIMENOrdering Facility: [facility] Address: [address] [place] [address] Result Comment: The [place] Diabetes Association (ADA) provides guidance for cutoff [...] Standards of Medical Care in Diabetes 2016, [place] [employer]. Diabetes Care. 2016.39(Suppl 1). Performed By: #### 2 4362-6, PROCAL ####[facility]ORATORYCLIA [id number] [place] [address] [place] Phosphate [Mass/Vol] 3.6 mg/dL Normal 2.7-4.8 [facility] Comment on above: Order Comment: Crystal bustillo Type: BLOOD SPECIMENOrdering Facility: [facility] Address: [address] [address] Performed By: #### 2 4362-6, PROCAL ####[facility]ORATORYCLIA [id number] [place] [address] [place] Potassium [Moles/Vol] 4.4 mmol/L Normal 3.7-5.1 [facility] Comment on above: Order Comment: Speci men Type: BLOOD SPECIMENOrdering Facility: [facility] Address: [address] [place] [address] Performed By: #### 2 4362-6, PROCAL ####[facility]ORATORYCLIA [id number] [place] [address] [place] Sodium [Moles/Vol] 134 mmol/L Low 136-144 [facility] Comment on above: Order Comment: Speci men Type: BLOOD SPECIMENOrdering Facility: [facility] Address: [address] [place] [address] Performed By: #### 2 4362-6, PROCAL ####[facility]ORATORYCLIA [id number] [place] [address] [place] Urea nitrogen [Mass/Vol] 48 mg/dL High 9-24 [facility] Comment on above: Order Comment: Speci men Type: BLOOD SPECIMENOrdering Facility: [facility] Address: [address] [place] [address] Performed By: #### 2 4362-6, PROCAL ####[facility]ATORYCLIA [id number] [place] [address] [place] XR CHEST 1V [...] 07/24/2021 RESULT: Lines, tubes, and devices: Overlying pomologist leads. Lungs and pleura: Small to moderate [...] vessels and increased fat within the mediastinum. Supervisor Felling Bucking: PSCB Transcribe Date/Time: Jul 28 2021 1:08P Dictated by : CHELLE CHILD MD This examination was interpreted and the report reviewed and electronically signed by: CHELLE CHILD MD on Jul 28 2021 1:10PM EST [id number] Normal [facility] CBC panel Auto (Bld)on 07-27 Erythrocyte distribution width (RBC) [Ratio] 15.0 % Normal 11.5-15.0 [facility] Comment on above: Order Comment: Speci men Type: BLOOD SPECIMENOrdering Facility: [facility] Address: [address] [place] [address] Performed By: #### 5 8410-2 ####[facility]ORATORYCLIA [id number] [address] [place] Hematocrit (Bld) [Volume fraction] 37.4 % Low 39.0-51.0 [facility] Comment on above: Order Comment: Speci men Type: BLOOD SPECIMENOrdering Facility: [facility] Address: [address] [address] Performed By: #### 5 8410-2 ####[facility]ORATORYCLIA [id number] [place] [address] [place] Hemoglobin (Bld) [Mass/Vol] 11.9 g/dL Low 13.0-17.0 [facility] Comment on above: Order Comment: Speci men Type: BLOOD SPECIMENOrdering Facility: [facility] Address: [address] [address] Performed By: #### 5 8410-2 ####[facility]ORATORYCLIA [id number] [address] MCH (RBC) [Entitic mass] 27.9 pg Normal 26.0-34.0 [facility] Comment on above: Order Comment: Speci men Type: BLOOD SPECIMENOrdering Facility: [facility] Address: [address] [place] [address] Performed By: #### 5 8410-2 ####[facility]ATORYCLIA [id number] [address] MCHC (RBC) [Mass/Vol] 31.8 g/dL Normal 30.5-36.0 [facility] Comment on above: Order Comment: Speci men Type: BLOOD SPECIMENOrdering Facility: [facility] Address: [address] [place] [address] Performed By: #### 5 8410-2 ####[facility]ATORYCLIA [id number] [address] MCV (RBC) [Entitic vol] 87.6 fL Normal 80.0-100.0 [place] Comment on above: Order Comment: Speci men Type: BLOOD SPECIMENOrdering Facility: [facility] Address: [address] [place] [address] Performed By: #### 5 8410-2 ####[facility]ATORYCLIA [id number] [address] Nucleated RBC (Bld) [#/Vol] 10*3/uL Normal <0.01 [facility] Comment on above: Order Comment: Speci men Type: BLOOD SPECIMENOrdering Facility: [facility] Address: [address] [place] [address] Performed By: #### 5 8410-2 ####[facility]ATORYCLIA [id number] [address] OF [facility] Platelet mean volume (Bld) [Entitic vol] 10.0 fL Normal 9.0-12.7 [facility] Comment on above: Order Comment: Speci men Type: BLOOD SPECIMENOrdering Facility: [facility] Address: [address] [place] [address] Performed By: #### 5 8410-2 ####[facility]ATORYCLIA [id number] [address] Platelets (Bld) [#/Vol] 380 10*3/uL Normal 150-400 [facility] Comment on above: Order Comment: Speci men Type: BLOOD SPECIMENOrdering Facility: [facility] Address: [address] [place] [address] Performed By: #### 5 8410-2 ####[facility]ATORYCLIA [id number] [address] RBC (Bld) [#/Vol] 4.27 10*6/uL Normal 4.20-6.00 [facility] Comment on above: Order Comment: Speci men Type: BLOOD SPECIMENOrdering Facility: [facility] Address: [address] [place] [address] Performed By: #### 5 8410-2 ####[facility]ATORYCLIA [id number] [address] WBC (Bld) [#/Vol] 10.89 10*3/uL Normal 3.70-11.00 [facility] Comment on above: Order Comment: Speci men Type: BLOOD SPECIMENOrdering Facility: [facility] Address: [address] [place] [address] Performed By: #### 5 8410-2 ####[facility]ATORYCLIA [id number] [address] CONSULTon 07-27-2021 CONSULT HNO ID: [id number] Author: James Mai MD Service: Critical Care [...] by left diabetic foot ulcer and neuropathy, [facility] resident, CAD status post CABG, [place], COPD [...] last hemoglobin A1c and had seen an new car salesperson couple of years ago and has not [...] to the above notes by my medical staff services coordinator physician, and/or my medical student, please note [...] 10 (more content not included)... Normal [facility] Renal function 2000 panelon 07-27-2021 Albumin [Mass/Vol] 2.6 g/dL Low 3.9-4.9 [facility] Comment on above: Order Comment: Speci men Type: BLOOD SPECIMENOrdering Facility: [facility] Address: [address] [place] [address] Performed By: #### 2 4362-6 ####[facility]ATORYCLIA [id number] [place] [address] [place] Anion gap [Moles/Vol] 12 mmol/L Normal 9-18 [facility] Comment on above: Order Comment: Speci [facility] Type: BLOOD SPECIMENOrdering Facility: [facility] Address: [address] [place] [address] Performed By: #### 2 4362-6 ####[facility]ATORYCLIA [id number] [place] [address] [place] Calcium [Mass/Vol] 8.7 mg/dL Normal 8.5-10.2 [facility] Comment on above: Order Comment: Speci men Type: BLOOD SPECIMENOrdering Facility: [facility] Address: [address] [place] [address] Performed By: #### 2 4362-6 ####[facility]ATORYCLIA [id number] [place] [address] [place] Chloride [Moles/Vol] 94 mmol/L Low 97-105 [facility] Comment on above: Order Comment: Speci men Type: BLOOD SPECIMENOrdering Facility: [facility] Address: [address] [place] [address] Performed By: #### 2 4362-6 ####[facility]ATORYCLIA [id number] [place] [address] [place] CO2 [Moles/Vol] 28 mmol/L Normal 22-30 [facility] Comment on above: Order Comment: Speci men Type: BLOOD SPECIMENOrdering Facility: [facility] Address: [address] [place] [address] Performed By: #### 2 4362-6 ####[facility]ATORYCLIA [id number] [address] [place] Creatinine [Mass/Vol] 1.31 mg/dL High 0.73-1.22 [facility] Comment on above: Order Comment: Speci men Type: BLOOD SPECIMENOrdering Facility: [facility] Address: [address] [place] [address] Performed By: #### 2 4362-6 ####[facility]ITALCLIA [id number] [address] ESTIMATED GLOMERULAR FILTRATION RATE 61 mL/min/1.73m??? Normal >=60 [facility] Comment on above: Order Comment: Speci men Type: BLOOD SPECIMENOrdering Facility: [facility] Address: [address] [place] [address] Result Comment: Anu mated Glomerular Filtration Rate [...] actual GFR. Performed By: #### 2 4362-6 ####[facility]ORYCLIA [id number] [address] [place] Glucose [Mass/Vol] 161 mg/dL High 74-99 [facility] Comment on above: Order Comment: Speci men Type: BLOOD SPECIMENOrdering Facility: [facility] Address: [address] [place] [address] Result Comment: The [place] Diabetes Association (ADA) provides guidance for cutoff [...] Standards of Medical Care in Diabetes 2016, [place] [employer]. Diabetes Care. 2016.39(Suppl 1). Performed By: #### 2 4362-6 ####[facility]ATORYCLIA [id number] [place] [address] [place] Phosphate [Mass/Vol] 2.9 mg/dL Normal 2.7-4.8 [facility] Comment on above: Order Comment: Crystal bustillo Type: BLOOD SPECIMENOrdering Facility: [facility] Address: [address] [place] [address] Performed By: #### 2 4362-6 ####[facility]ATORYCLIA [id number] [place] [address] [place] Potassium [Moles/Vol] 4.2 mmol/L Normal 3.7-5.1 [facility] Comment on above: Order Comment: Crystal bustillo Type: BLOOD SPECIMENOrdering Facility: [facility] Address: [address] [address] Performed By: #### 2 4362-6 ####[facility]ATORYCLIA [id number] [place] [address] [place] Sodium [Moles/Vol] 134 mmol/L Low 136-144 [facility] Comment on above: Order Comment: Crystal bustillo Type: BLOOD SPECIMENOrdering Facility: [facility] Address: [address] [address] Performed By: #### 2 4362-6 ####[facility]ATORYCLIA [id number] [place] [address] [place] Urea nitrogen [Mass/Vol] 50 mg/dL High 9-24 [facility] Comment on above: Order Comment: Speci men Type: BLOOD SPECIMENOrdering Facility: [facility] Address: [address] [place] [address] Performed By: #### 2 4362-6 ####[facility]ORATORYCLIA [id number] [place] [address] [facility] THERAPY NTon 07-27-2021 THERAPY NT HNO ID: [id number] Author: Mirian Grier, PT Service: Physical Therapy Author Type: Physical Therapist Type: Therapy (PT/OT/Speech/Resp) Filed: 07/27/2021 4:05 PM Note Text: Physical Therapy SERVICE DATE: 07/27/2021 SERVICE TIME: 1341 to 1401 ROOM: [place] [address] Recommended Discharge Disposition: Home PT (at Assisted [...] tra (more content not included)... Normal [facility] Bacteria Spec Resp Culton Bacteria identified Respiratory culture Nom (Unsp spec) ORGANISM ID: 1 Rare Yeast, not Cryptococcus neoformans GRAM STAIN: Rare Gram positive cocci in pairs Rare Yeast Rare Polymorphonuclear leukocytes Few Epithelial cells Abnormal [facility] Comment on above: Performed By: #### 3 2355-0 #### [facility] CLIA [id number] [address] [place] CBC panel Auto (Bld)on 07-26 Erythrocyte distribution width (RBC) [Ratio] 15.0 % Normal 11.5-15.0 [facility] Comment on above: Order Comment: Speci men Type: BLOOD SPECIMENOrdering Facility: [facility] Address: [address] [place] [address] Performed By: #### 9 4500-6 #### [facility] CLIA [id number] [address] [place] [address] [place] Hematocrit (Bld) [Volume fraction] 35.2 % Low 39.0-51.0 [facility] Comment on above: Order Comment: Speci men Type: BLOOD SPECIMENOrdering Facility: [facility] Address: [address] [place] [address] Performed By: #### 9 4500-6 #### [facility] CLIA [id number] [address] [place] [address] [place] Hemoglobin (Bld) [Mass/Vol] 11.1 g/dL Low 13.0-17.0 [facility] Comment on above: Order Comment: Speci men Type: BLOOD SPECIMENOrdering Facility: [facility] Address: [address] [place] [address] Performed By: #### 9 4500-6 #### [facility] CLIA [id number] [address] MCH (RBC) [Entitic mass] 27.9 pg Normal 26.0-34.0 [facility] Comment on above: Order Comment: Speci men Type: BLOOD SPECIMENOrdering Facility: [facility] Address: [address] [place] [address] Performed By: #### 9 4500-6 #### [facility] CLIA [id number] [address] MCHC (RBC) [Mass/Vol] 31.5 g/dL Normal 30.5-36.0 [facility] Comment on above: Order Comment: Speci men Type: BLOOD SPECIMENOrdering Facility: [facility] Address: [address] [place] [address] Performed By: #### 9 4500-6 #### [facility] CLIA [id number] [address] MCV (RBC) [Entitic vol] 88.4 fL Normal 80.0-100.0 [place] Comment on above: Order Comment: Speci men Type: BLOOD SPECIMENOrdering Facility: [facility] Address: [address] [place] [address] Performed By: #### 9 4500-6 #### [facility] CLIA [id number] [address] Nucleated RBC (Bld) [#/Vol] 10*3/uL Normal <0.01 [facility] Comment on above: Order Comment: Speci men Type: BLOOD SPECIMENOrdering Facility: [facility] Address: [address] [place] [address] Performed By: #### 9 4500-6 #### [facility] CLIA [id number] [address] Platelet mean volume (Bld) [Entitic vol] 10.1 fL Normal 9.0-12.7 [facility] Comment on above: Order Comment: Speci men Type: BLOOD SPECIMENOrdering Facility: [facility] Address: [address] [place] [address] Performed By: #### 9 4500-6 #### [facility] CLIA [id number] [address] Platelets (Bld) [#/Vol] 379 10*3/uL Normal 150-400 [facility] Comment on above: Order Comment: Speci men Type: BLOOD SPECIMENOrdering Facility: [facility] Address: [address] [place] [address] Performed By: #### 9 4500-6 #### [facility] CLIA [id number] [address] RBC (Bld) [#/Vol] 3.98 10*6/uL Low 4.20-6.00 [facility] Comment on above: Order Comment: Speci men Type: BLOOD SPECIMENOrdering Facility: [facility] Address: [address] [place] [address] Performed By: #### 9 4500-6 #### [facility] CLIA [id number] [address] [place] [facility] WBC (Bld) [#/Vol] 9.59 10*3/uL Normal 3.70-11.00 [facility] Comment on above: Order Comment: Speci men Type: BLOOD SPECIMENOrdering Facility: [facility] Address: [address] [place] [address] Performed By: #### 9 4500-6 #### [facility] CLIA [id number] [address] NUTRITIONon 07-26-2021 NUTRITION HNO ID: [id number] Author: Federica Loving RD Service: Nutrition Therapy [...] Grams protein determined by: 1.2 - 1.5 g/kg;[place] body weight Care Plan: Change diet to CHO controlled Monitor and Evaluation: Meet greater than 75% of estimated needs;Monitor fluid/electrolyte balance;Monitor bowel function;Monitor labs, I/Os, vital signs, weight Discharge Recommendations: Diet Diet: CHO controlled ------ HPI: 65 yo male, LOS 5 days, presented with chest pain and cough for 2 weeks [employer], started on antibiotics, cultures noted, started on [...] Right Foot Copd (Chronic Obstructive Pulmonary Disease) ([facility]) Hyperlipidemia Hypertensive Heart Disease Morbid Obesity ([facility]) Minerva (Obstructive Sleep Apnea) Type 2 Diabetes Mellitus ([facility]) Ibs (Irritable Bowel Syndrome) Colitis Cataract, Nuclear Sclerotic, Both Eyes Nonexudative Age-Related Macular Degeneration, Bilateral, 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 Respiratory Failure ([facility]) Intake History: Nutrition Intake Prior to Admission: [...] kg (200 lb) Limited weight history in [facility] Usual Weight Obtained From: Chart Review Body [...] 26, 2021 TIME: 8:46 AM Normal [facility] Renal function 2000 panelon 07-26-2021 Albumin [Mass/Vol] 2.8 g/dL Low 3.9-4.9 [facility] Comment on above: Order Comment: Crystal bustillo Type: BLOOD SPECIMENOrdering Facility: [facility] Address: [address] [place] [address] Performed By: #### 2 4362-6 ####[facility]ORYCLIA [id number] [place] [address] [place] Anion gap [Moles/Vol] 9 mmol/L Normal 9-18 [facility] Comment on above: Order Comment: Crystal bustillo Type: BLOOD SPECIMENOrdering Facility: [facility] Address: [address] [place] [address] Performed By: #### 2 4362-6 ####[facility]ORYCLIA [id number] [place] [address] [place] Calcium [Mass/Vol] 8.9 mg/dL Normal 8.5-10.2 [facility] Comment on above: Order Comment: Speci men Type: BLOOD SPECIMENOrdering Facility: [facility] Address: [address] [place] [address] Performed By: #### 2 4362-6 ####[facility]ORYCLIA [id number] [place] [address] [place] Chloride [Moles/Vol] 96 mmol/L Low 97-105 [facility] Comment on above: Order Comment: Speci men Type: BLOOD SPECIMENOrdering Facility: [facility] Address: [address] [place] [address] Performed By: #### 2 4362-6 ####[facility]ORYCLIA [id number] [place] [address] [place] CO2 [Moles/Vol] 31 mmol/L High 22-30 [facility] Comment on above: Order Comment: Speci men Type: BLOOD SPECIMENOrdering Facility: [facility] Address: [address] [place] [address] Performed By: #### 2 4362-6 ####[facility]ORYCLIA [id number] [place] [address] [place] Creatinine [Mass/Vol] 1.31 mg/dL High 0.73-1.22 [facility] Comment on above: Order Comment: Speci men Type: BLOOD SPECIMENOrdering Facility: [facility] Address: [address] [place] [address] Performed By: #### 2 4362-6 ####[facility]ORYCLIA [id number] [address] [place] ESTIMATED GLOMERULAR FILTRATION RATE 61 mL/min/1.73m??? Normal >=60 [facility] Comment on above: Order Comment: Speci men Type: BLOOD SPECIMENOrdering Facility: [facility] Address: [address] [place] [address] Result Comment: Anu mated Glomerular Filtration Rate [...] actual GFR. Performed By: #### 2 4362-6 ####[facility]ORYCLIA [id number] [place] [address] [place] Glucose [Mass/Vol] 143 mg/dL High 74-99 [facility] Comment on above: Order Comment: Speci men Type: BLOOD SPECIMENOrdering Facility: [facility] Address: [address] [place], [place] [address] Result Comment: The [place] Diabetes Association (ADA) provides guidance for cutoff [...] Standards of Medical Care in Diabetes 2016, [place] [employer]. Diabetes Care. 2016.39(Suppl 1). Performed By: #### 2 4362-6 ####[facility]ORYCLIA [id number] [place] [address] [place] Phosphate [Mass/Vol] 2.7 mg/dL Normal 2.7-4.8 [facility] Comment on above: Order Comment: Speci [facility] Type: BLOOD SPECIMENOrdering Facility: [facility] Address: [address] [place] [address] Performed By: #### 2 4362-6 ####[facility]ORYCLIA [id number] [place] [address] [place] Potassium [Moles/Vol] 4.4 mmol/L Normal 3.7-5.1 [facility] Comment on above: Order Comment: Speci men Type: BLOOD SPECIMENOrdering Facility: [facility] Address: [address] [address] Performed By: #### 2 4362-6 ####[facility]ORYCLIA [id number] [address] Sodium [Moles/Vol] 136 mmol/L Normal 136-144 [facility] Comment on above: Order Comment: Speci men Type: BLOOD SPECIMENOrdering Facility: [facility] Address: [address] [place] [address] Performed By: #### 2 4362-6 ####[facility]ORYCLIA [id number] [address] Urea nitrogen [Mass/Vol] 49 mg/dL High 9-24 [facility] Comment on above: Order Comment: Speci men Type: BLOOD SPECIMENOrdering Facility: [facility] Address: [address] [place] [address] Performed By: #### 2 4362-6 ####[facility]ORYCLIA [id number] [address] CBC panel Auto (Bld)on 07-25 Erythrocyte distribution width (RBC) [Ratio] 15.1 % High 11.5-15.0 [facility] Comment on above: Order Comment: Speci men Type: BLOOD SPECIMENOrdering Facility: [facility] Address: [address] [place] [address] Performed By: #### 5 8410-2 ####[facility]ORYCLIA [id number] [address] Hematocrit (Bld) [Volume fraction] 34.4 % Low 39.0-51.0 [facility] Comment on above: Order Comment: Speci men Type: BLOOD SPECIMENOrdering Facility: [facility] Address: [address] [place] [address] Performed By: #### 5 8410-2 ####[facility]ORYCLIA [id number] [address] Hemoglobin (Bld) [Mass/Vol] 10.8 g/dL Low 13.0-17.0 [facility] Comment on above: Order Comment: Speci men Type: BLOOD SPECIMENOrdering Facility: [facility] Address: [address] [place] [address] Performed By: #### 5 8410-2 ####[facility]ORYCLIA [id number] [address] MCH (RBC) [Entitic mass] 28.3 pg Normal 26.0-34.0 [facility] Comment on above: Order Comment: Speci men Type: BLOOD SPECIMENOrdering Facility: [facility] Address: [address] [place] [address] Performed By: #### 5 8410-2 ####[facility]ORYCLIA [id number] [address] MCHC (RBC) [Mass/Vol] 31.4 g/dL Normal 30.5-36.0 [facility] Comment on above: Order Comment: Speci men Type: BLOOD SPECIMENOrdering Facility: [facility] Address: [address] [place] [address] Performed By: #### 5 8410-2 ####[facility]ORYCLIA [id number] [address] MCV (RBC) [Entitic vol] 90.1 fL Normal 80.0-100.0 [place] Comment on above: Order Comment: Speci men Type: BLOOD SPECIMENOrdering Facility: [facility] Address: [address] [place] [address] Performed By: #### 5 8410-2 ####[facility]ORYCLIA [id number] [address] Nucleated RBC (Bld) [#/Vol] 10*3/uL Normal <0.01 [facility] Comment on above: Order Comment: Speci men Type: BLOOD SPECIMENOrdering Facility: [facility] Address: [address] Performed By: #### 5 8410-2 ####[facility]ORYCLIA [id number] [address] Platelet mean volume (Bld) [Entitic vol] 10.1 fL Normal 9.0-12.7 [facility] Comment on above: Order Comment: Speci men Type: BLOOD SPECIMENOrdering Facility: [facility] Address: [address] [place], [place] [address] Performed By: #### 5 8410-2 ####[facility]ORYCLIA [id number] [address] [place] Platelets (Bld) [#/Vol] 402 10*3/uL High 150-400 [facility] Comment on above: Order Comment: Speci men Type: BLOOD SPECIMENOrdering Facility: [facility] Address: [address] [place] [address] Performed By: #### 5 8410-2 ####[facility]ORYCLIA [id number] [address] [place] RBC (Bld) [#/Vol] 3.82 10*6/uL Low 4.20-6.00 [facility] Comment on above: Order Comment: Speci men Type: BLOOD SPECIMENOrdering Facility: [facility] Address: [address] [place] [address] Performed By: #### 5 8410-2 ####[facility]ORYCLIA [id number] [address] [place] WBC (Bld) [#/Vol] 12.31 10*3/uL High 3.70-11.00 [facility] Comment on above: Order Comment: Speci men Type: BLOOD SPECIMENOrdering Facility: [facility] Address: [address] [place] [address] Performed By: #### 5 8410-2 ####[facility]ORYCLIA [id number] [address] CONSULT PROGon 07-25-2021 CONSULT PROG HNO ID: [id number] Author: Halina Lentz [facility] Service: Pharmacy Author Type: Pharmacist Type: Consult [...] pharmacy if there are questions. Halina Lentz [facility] CONSULT PROG HNO ID: [id number] Author: Raji Lees MD Service: Infectious Disease [...] left diabetic foot ulcer, residing in a [facility], [facility] 07/21/2021 for cough, shortness of breath [...] g (more content not included)... Normal [facility] Gas and Carbon monoxide pane l (BldV)on 07-25-2021 Base excess Calc (BldV) [Moles/Vol] 7 mmol/L High 0-2 [facility] Comment on above: Order Comment: Speci men Type: VENOUS BLOOD SPECIMENOrdering Facility: [facility] Address: [address] [place] [address] Performed By: #### 2 4344-4 ####[facility]ORYCLIA [id number] [address] Body temperature 98.6 [degF] Normal [facility] Comment on above: Order Comment: Speci men Type: VENOUS BLOOD SPECIMENOrdering Facility: [facility] Address: [address] [place] [address] Performed By: #### 2 4344-4 ####[facility]ORYCLIA [id number] [address] CALCIUM IONIZED, PH CORRECTED 1.17 mmol/L Normal 1.08-1.30 [facility] Comment on above: Order Comment: Speci men Type: VENOUS BLOOD SPECIMENOrdering Facility: [facility] Address: [address] [place] [address] Performed By: #### 2 4344-4 ####[facility]ORYCLIA [id number] [address] Calcium.ionized (BldV) [Mass/Vol] 1.17 mmol/L Normal 1.08-1.30 [facility] Comment on above: Order Comment: Speci men Type: VENOUS BLOOD SPECIMENOrdering Facility: [facility] Address: [address] [place] [address] Performed By: #### 2 4344-4 ####[facility]ORYCLIA [id number] [address] [place] Carboxyhemoglobin (BldV) [Mass fraction] <1.0 Normal 0.0-2.0 [facility] Comment on above: Order Comment: Speci men Type: VENOUS BLOOD SPECIMENOrdering Facility: [facility] Address: [address] [place] [address] Result Comment: Carb oxyhemoglobin Reference Range for Smokers: 2.0-8.0% Performed By: #### 2 4344-4 ####[facility]ATORYCLIA [id number] [place] [address] [place] CO2 (BldV) [Partial pressure] 54 mm[Hg] Normal 42-55 [facility] Comment on above: Order Comment: Speci men Type: VENOUS BLOOD SPECIMENOrdering Facility: [facility] Address: [address] [place] [address] Performed By: #### 2 4344-4 ####[facility]ORYCLIA [id number] [place] [address] [place] CO2 [Moles/Vol] 30 mmol/L High 25-29 [facility] Comment on above: Order Comment: Speci men Type: VENOUS BLOOD SPECIMENOrdering Facility: [facility] Address: [address] [place] [address] Performed By: #### 2 4344-4 ####[facility]ORYCLIA [id number] [address] [place] Glucose [Mass/Vol] 198 mg/dL High 60-105 [facility] Comment on above: Order Comment: Speci men Type: VENOUS BLOOD SPECIMENOrdering Facility: [facility] Address: [address] [place] [address] Performed By: #### 2 4344-4 ####[facility]ORYCLIA [id number] [place] [address] [place] HCO3 (Bld) [Moles/Vol] 33 mmol/L High 24-28 [facility] Comment on above: Order Comment: Speci men Type: VENOUS BLOOD SPECIMENOrdering Facility: [facility] Address: [address] [place] [address] Performed By: #### 2 4344-4 ####[facility]ORYCLIA [id number] [place] [address] [place] Hematocrit (Bld) [Volume fraction] 35.5 % Low 39.0-51.0 [facility] Comment on above: Order Comment: Speci men Type: VENOUS BLOOD SPECIMENOrdering Facility: [facility] Address: [address] [place] [address] Performed By: #### 2 4344-4 ####[facility]ORYCLIA [id number] [address] [place] Hemoglobin (Bld) [Mass/Vol] 11.5 g/dL Low 13.0-17.0 [facility] Comment on above: Order Comment: Speci men Type: VENOUS BLOOD SPECIMENOrdering Facility: [facility] Address: [address] [place] [address] Performed By: #### 2 4344-4 ####[facility]ORYCLIA [id number] [address] Methemoglobin (Bld) [Mass fraction] % Normal 0.0-1.5 [facility] Comment on above: Order Comment: Speci men Type: VENOUS BLOOD SPECIMENOrdering Facility: [facility] Address: [address] [place] [address] Performed By: #### 2 4344-4 ####[facility]ORYCLIA [id number] [address] O2 THERAPY Hi-Flow Nasal Cannula-Heated Normal [facility] Comment on above: Order Comment: Speci men Type: VENOUS BLOOD SPECIMENOrdering Facility: [facility] Address: [address] [place] [address] Performed By: #### 2 4344-4 ####[facility]ORYCLIA [id number] [address] Oxygen (BldV) [Partial pressure] 38 mm[Hg] Normal 35-45 [facility] Comment on above: Order Comment: Speci men Type: VENOUS BLOOD SPECIMENOrdering Facility: [facility] Address: [address] [place] [address] Performed By: #### 2 4344-4 ####[facility]ORYCLIA [id number] [address] Oxygen saturation in Blood 67 % Normal 60-85 [facility] Comment on above: Order Comment: Speci men Type: VENOUS BLOOD SPECIMENOrdering Facility: [facility] Address: [address] [place] [address] Performed By: #### 2 4344-4 ####[facility]ORYCLIA [id number] [address] Oxyhemoglobin (BldV) [Mass fraction] 66 % Normal 60-85 [facility] Comment on above: Order Comment: Speci men Type: VENOUS BLOOD SPECIMENOrdering Facility: [facility] Address: [address] [place] [address] Performed By: #### 2 4344-4 ####[facility]ORYCLIA [id number] [address] [place] pH (BldV) 7.40 [pH] Normal 7.32-7.42 [facility] Comment on above: Order Comment: Speci men Type: VENOUS BLOOD SPECIMENOrdering Facility: [facility] Address: [address] [place] [address] Performed By: #### 2 4344-4 ####[facility]ORYCLIA [id number] [address] [place] [facility] Potassium [Moles/Vol] 4.1 mmol/L Normal 3.5-5.0 [facility] Comment on above: Order Comment: Speci men Type: VENOUS BLOOD SPECIMENOrdering Facility: [facility] Address: [address] [place] [address] Performed By: #### 2 4344-4 ####[facility]ORYCLIA [id number] [address] [place] Sodium [Moles/Vol] 133 mmol/L Low 136-144 [facility] Comment on above: Order Comment: Speci men Type: VENOUS BLOOD SPECIMENOrdering Facility: [facility] Address: [address] [place] [address] Performed By: #### 2 4344-4 ####[facility]ORYCLIA [id number] [address] [place] HIGH SENSITIVITY TROPONIN To n 07-25-2021 HIGH SENSITIVITY MEDARDO 24 ng/L High <12 [facility] Comment on above: Order Comment: Crystal men Type: BLOOD SPECIMEN [facility] Address: [address] [place] [address] Result Comment: When assessing risk for acute [...] MACE. Performed By: #### 5 8410-2 #### [facility] CLIA [id number] [address] [place] Renal function 2000 panelon 07-25-2021 Albumin [Mass/Vol] 2.9 g/dL Low 3.9-4.9 [facility] Comment on above: Order Comment: Crystal men Type: BLOOD SPECIMENOrdering Facility: [facility] Address: [address] [place] [address] Performed By: #### 2 4362-6 ####[facility]ORYCLIA [id number] [place] [address] [place] Anion gap [Moles/Vol] 9 mmol/L Normal 9-18 [facility] Comment on above: Order Comment: Echoi men Type: BLOOD SPECIMENOrdering Facility: [facility] Address: [address] [place] [address] Performed By: #### 2 4362-6 ####[facility]ORYCLIA [id number] [address] [place] Calcium [Mass/Vol] 8.8 mg/dL Normal 8.5-10.2 [facility] Comment on above: Order Comment: Speci men Type: BLOOD SPECIMENOrdering Facility: [facility] Address: [address] [place] [address] Performed By: #### 2 4362-6 ####[facility]ORYCLIA [id number] [place] [address] [place] Chloride [Moles/Vol] 96 mmol/L Low 97-105 [facility] Comment on above: Order Comment: Speci men Type: BLOOD SPECIMENOrdering Facility: [facility] Address: [address] [place] [address] Performed By: #### 2 4362-6 ####[facility]ORYCLIA [id number] [place] [address] [place] CO2 [Moles/Vol] 30 mmol/L Normal 22-30 [facility] Comment on above: Order Comment: Speci men Type: BLOOD SPECIMENOrdering Facility: [facility] Address: [address] [place] [address] Performed By: #### 2 4362-6 ####[facility]ITALCLIA [id number] [address] STATES OF [facility] Creatinine [Mass/Vol] 1.52 mg/dL High 0.73-1.22 [facility] Comment on above: Order Comment: Speci men Type: BLOOD SPECIMENOrdering Facility: [facility] Address: [address] [place] [address] Performed By: #### 2 4362-6 ####[facility]ORYCLIA [id number] [address] ESTIMATED GLOMERULAR FILTRATION RATE 51 mL/min/1.73m??? Low >=60 [facility] Comment on above: Order Comment: Speci men Type: BLOOD SPECIMENOrdering Facility: [facility] Address: [address] [place] [address] Result Comment: Anu mated Glomerular Filtration Rate [...] actual GFR. Performed By: #### 2 4362-6 ####[facility]ATORYCLIA [id number] [address] [place] Glucose [Mass/Vol] 160 mg/dL High 74-99 [facility] Comment on above: Order Comment: Speci men Type: BLOOD SPECIMENOrdering Facility: [facility] Address: [address] [place] [address] Result Comment: The [place] Diabetes [employer] (ADA) provides guidance for cutoff [...] Standards of Medical Care in Diabetes 2016, [place] [employer]. Diabetes Care. 2016.39(Suppl 1). Performed By: #### 2 4362-6 ####[facility]ATORYCLIA [id number] [place] [address] [place] Phosphate [Mass/Vol] 2.8 mg/dL Normal 2.7-4.8 [facility] Comment on above: Order Comment: Echoi men Type: BLOOD SPECIMENOrdering Facility: [facility] Address: [address] [place] [address] Performed By: #### 2 4362-6 ####[facility]ORYCLIA [id number] [place] [address] [place] Potassium [Moles/Vol] 4.8 mmol/L Normal 3.7-5.1 [facility] Comment on above: Order Comment: Speci men Type: BLOOD SPECIMENOrdering Facility: [facility] Address: [address] [place] [address] Performed By: #### 2 4362-6 ####[facility]ORYCLIA [id number] [place] [address] [place] Sodium [Moles/Vol] 135 mmol/L Low 136-144 [facility] Comment on above: Order Comment: Speci men Type: BLOOD SPECIMENOrdering Facility: [facility] Address: [address] [place] [address] Performed By: #### 2 4362-6 ####[facility]ORYCLIA [id number] [address] Urea nitrogen [Mass/Vol] 55 mg/dL High 9-24 [facility] Comment on above: Order Comment: Speci men Type: BLOOD SPECIMENOrdering Facility: [facility] Address: [address] [place] [address] Performed By: #### 2 4362-6 ####[facility]ORYCLIA [id number] [address] ALLIED HEALTHon 07-24-2021 ALLIED HEALTH HNO ID: [id number] Author: RT Clement(R) Service: Radiology Author Type: Technologist Type: Allied [...] Clement(R) July 24, 2021 5:14 AM Normal [facility] CBC panel Auto (Bld)on 07-24 Erythrocyte distribution width (RBC) [Ratio] 15.1 % High 11.5-15.0 [facility] Comment on above: Order Comment: Speci men Type: BLOOD SPECIMENOrdering Facility: [facility] Address: [address] [place] [address] Performed By: #### 9 4500-6 #### [facility] CLIA [id number] [address] Hematocrit (Bld) [Volume fraction] 34.3 % Low 39.0-51.0 [facility] Comment on above: Order Comment: Speci men Type: BLOOD SPECIMENOrdering Facility: [facility] Address: [address] [place] [address] Performed By: #### 9 4500-6 #### [facility] CLIA [id number] [address] Hemoglobin (Bld) [Mass/Vol] 10.4 g/dL Low 13.0-17.0 [facility] Comment on above: Order Comment: Speci men Type: BLOOD SPECIMENOrdering Facility: [facility] Address: [address] [place] [address] Performed By: #### 9 4500-6 #### [facility] CLIA [id number] [address] [place] [address] MCH (RBC) [Entitic mass] 28.0 pg Normal 26.0-34.0 [facility] Comment on above: Order Comment: Speci men Type: BLOOD SPECIMENOrdering Facility: [facility] Address: [address] [place] [address] Performed By: #### 9 4500-6 #### [facility] CLIA [id number] [address] [place] [address] OF [facility] MCHC (RBC) [Mass/Vol] 30.3 g/dL Low 30.5-36.0 [facility] Comment on above: Order Comment: Speci men Type: BLOOD SPECIMENOrdering Facility: [facility] Address: [address] [place] [address] Performed By: #### 9 4500-6 #### [facility] CLIA [id number] [address] MCV (RBC) [Entitic vol] 92.5 fL Normal 80.0-100.0 [place] Comment on above: Order Comment: Speci men Type: BLOOD SPECIMENOrdering Facility: [facility] Address: [address] Performed By: #### 9 4500-6 #### [facility] CLIA [id number] [address] Nucleated RBC (Bld) [#/Vol] 10*3/uL Normal <0.01 [facility] Comment on above: Order Comment: Speci men Type: BLOOD SPECIMENOrdering Facility: [facility] Address: [address] [place], [place] [address] Performed By: #### 9 4500-6 #### [facility] CLIA [id number] [address] Platelet mean volume (Bld) [Entitic vol] 10.5 fL Normal 9.0-12.7 [facility] Comment on above: Order Comment: Speci men Type: BLOOD SPECIMENOrdering Facility: [facility] Address: [address] [place], [place] [address] Performed By: #### 9 4500-6 #### [facility] CLIA [id number] [address] Platelets (Bld) [#/Vol] 342 10*3/uL Normal 150-400 [facility] Comment on above: Order Comment: Speci men Type: BLOOD SPECIMENOrdering Facility: [facility] Address: [address] [place], [place] [address] Performed By: #### 9 4500-6 #### [facility] CLIA [id number] [address] [place] RBC (Bld) [#/Vol] 3.71 10*6/uL Low 4.20-6.00 [facility] Comment on above: Order Comment: Speci men Type: BLOOD SPECIMENOrdering Facility: [facility] Address: [address] [place], [place] [address] Performed By: #### 9 4500-6 #### [facility] CLIA [id number] [address] [place] [address] [place] WBC (Bld) [#/Vol] 15.57 10*3/uL High 3.70-11.00 [facility] Comment on above: Order Comment: Speci men Type: BLOOD SPECIMENOrdering Facility: [facility] Address: [address] [place] [address] Performed By: #### 9 4500-6 #### [facility] CLIA [id number] [address] [place] [id number] [facility] CONSULT PROGon 07-24-2021 CONSULT PROG HNO ID: [id number] Author: Ibeth Oneal RPh Service: Pharmacy Author [...] have any questions, [place] [phone]. Age: [age] year old Allergies: ALLERGIES Allergen [...] (H) 07/23/2021 0044 21.0 (H) Ibeth Oneal, [facility] Normal [facility] NT-proBNP [facility] 07-24 Natriuretic peptide.B prohormone N-Terminal [Mass/Vol] 937 pg/mL High <125 [facility] Comment on above: Order Comment: Speci keny Type: BLOOD SPECIMENOrdering Facility: [facility] Address: [address] [address] Performed By: #### 2 4362-6, 03419-5 ####[facility]ORYCLIA [id number] [place] [address] [place] Renal function 2000 panelon 07-24-2021 Albumin [Mass/Vol] 2.5 g/dL Low 3.9-4.9 [facility] Comment on above: Order Comment: Crystal bustillo Type: BLOOD SPECIMENOrdering Facility: [facility] Address: [address] [address] Performed By: #### 2 4362-6, 48444-1 ####[facility]ORATORYCLIA [id number] [place] [address] [place] Anion gap [Moles/Vol] 12 mmol/L Normal 9-18 [facility] Comment on above: Order Comment: Speci men Type: BLOOD SPECIMENOrdering Facility: [facility] Address: [address] [place] [address] Performed By: #### 2 4362-6, 00928-1 ####[facility]ORYCLIA [id number] [place] [address] [place] Calcium [Mass/Vol] 8.5 mg/dL Normal 8.5-10.2 [facility] Comment on above: Order Comment: Speci men Type: BLOOD SPECIMENOrdering Facility: [facility] Address: [address] [place] [address] Performed By: #### 2 4362-6, 12054-7 ####[facility]ORYCLIA [id number] [place] [address] [place] Chloride [Moles/Vol] 93 mmol/L Low 97-105 [facility] Comment on above: Order Comment: Speci men Type: BLOOD SPECIMENOrdering Facility: [facility] Address: [address] [place] [address] Performed By: #### 2 4362-6, 42516-1 ####[facility]ORYCLIA [id number] [place] [address] [place] CO2 [Moles/Vol] 24 mmol/L Normal 22-30 [facility] Comment on above: Order Comment: Speci men Type: BLOOD SPECIMENOrdering Facility: [facility] Address: [address] [place] [address] Performed By: #### 2 4362-6, 64232-6 ####[facility]ORYCLIA [id number] [place] [address] [place] Creatinine [Mass/Vol] 1.58 mg/dL High 0.73-1.22 [facility] Comment on above: Order Comment: Speci men Type: BLOOD SPECIMENOrdering Facility: [facility] Address: [address] [place] [address] Performed By: #### 2 4362-6, 13676-0 ####[facility]ITALCLIA [id number] [address] [place] ESTIMATED GLOMERULAR FILTRATION RATE 49 mL/min/1.73m??? Low >=60 [facility] Comment on above: Order Comment: Echotracie bustillo Type: BLOOD SPECIMENOrdering Facility: [facility] Address: [address] [place] [address] Result Comment: Anu mated Glomerular Filtration Rate [...] actual GFR. Performed By: #### 2 4362-6, 77562-2 ####[facility]ATORYIA [id number] [place] [address] [place] Glucose [Mass/Vol] 417 mg/dL High 74-99 [facility] Comment on above: Order Comment: Crystal bustillo Type: BLOOD SPECIMENOrdering Facility: [facility] Address: [address] [place] [address] Result Comment: The [place] Diabetes Association (ADA) provides guidance for cutoff [...] Standards of Medical Care in Diabetes 2016, [place] [employer]. Diabetes Care. 2016.39(Suppl 1). Performed By: #### 2 4362-6, 97256-1 ####[facility]ATORYCLIA [id number] [place] [address] [place] Phosphate [Mass/Vol] 2.4 mg/dL Low 2.7-4.8 [facility] Comment on above: Order Comment: Speci men Type: BLOOD SPECIMENOrdering Facility: [facility] Address: [address] [place] [address] Performed By: #### 2 4362-6, 71738-9 ####[facility]ORYCLIA [id number] [place] [address] [place] Potassium [Moles/Vol] 5.4 mmol/L High 3.7-5.1 [facility] Comment on above: Order Comment: Speci men Type: BLOOD SPECIMENOrdering Facility: [facility] Address: [address] [place] [address] Performed By: #### 2 4362-6, 37729-1 ####[facility]ORYCLIA [id number] [place] [address] [place] [facility] Sodium [Moles/Vol] 129 mmol/L Low 136-144 [facility] Comment on above: Order Comment: Speci men Type: BLOOD SPECIMENOrdering Facility: [facility] Address: [address] [place] [address] Performed By: #### 2 4362-6, 52749-5 ####[facility]ATORYCLIA [id number] [place] [address] [place] Urea nitrogen [Mass/Vol] 55 mg/dL High 9-24 [facility] Comment on above: Order Comment: Speci men Type: BLOOD SPECIMENOrdering Facility: [facility] Address: [address] [place] [address] Performed By: #### 2 4362-6, 32596-4 ####[facility]ATORYCLIA [id number] [place] [address] [place] Vancomycin random [Mass/Vol] on 07-24-2021 Vancomycin [Mass/Vol] 25.8 ug/mL High 10.0-20.0 [facility] Comment on above: Order Comment: Speci men Type: BLOOD SPECIMENOrdering Facility: [facility] Address: [address] [address] Result Comment: Refe rence ranges and high/low indicator flags are provided as general guidelines only. The treating physician must determine appropriate target levels/dosing based on the specific clinical situation. Performed By: #### 4 091-5 ####[facility]ATORYCLIA [id number] [place] [address] [place] XR CHEST 1V [...] described above. A follow-up exam is recommended. Supervisor Felling Bucking: PSCB Transcribe Date/Time: Jul 24 2021 9:07A Dictated by : SAM MARCELINO MD This examination was interpreted and the report reviewed and electronically signed by: SAM MARCELINO MD on Jul 24 2021 9:09AM EST [id number] Normal [facility] CBC panel Auto (Bld)on 07-23 Erythrocyte distribution width (RBC) [Ratio] 15.2 % High 11.5-15.0 [facility] Comment on above: Order Comment: Speci men Type: BLOOD SPECIMEN [facility] Address: [address] [place] [address] Performed By: #### 5 8410-2 #### [facility] CLIA [id number] [address] [place] [address] OF [facility] Hematocrit (Bld) [Volume fraction] 37.8 % Low 39.0-51.0 [facility] Comment on above: Order Comment: Speci men Type: BLOOD SPECIMEN [facility] Address: [address] [place] [address] Performed By: #### 5 8410-2 #### [facility] CLIA [id number] [address] Hemoglobin (Bld) [Mass/Vol] 11.5 g/dL Low 13.0-17.0 [facility] Comment on above: Order Comment: Speci men Type: BLOOD SPECIMEN [facility] Address: [address] [place] [address] Performed By: #### 5 8410-2 #### [facility] CLIA [id number] [address] STATES OF [facility] MCH (RBC) [Entitic mass] 28.0 pg Normal 26.0-34.0 [facility] Comment on above: Order Comment: Speci men Type: BLOOD SPECIMEN [facility] Address: [address] [place] [address] Performed By: #### 5 8410-2 #### [facility] CLIA [id number] [address] [place] MCHC (RBC) [Mass/Vol] 30.4 g/dL Low 30.5-36.0 [facility] Comment on above: Order Comment: Speci men Type: BLOOD SPECIMEN [facility] Address: [address] Performed By: #### 5 8410-2 #### [facility] CLIA [id number] [address] MCV (RBC) [Entitic vol] 92.0 fL Normal 80.0-100.0 [facility] Comment on above: Order Comment: Speci men Type: BLOOD SPECIMEN [facility] Address: [address] [address] Performed By: #### 5 8410-2 #### [facility] CLIA [id number] [address] Nucleated RBC (Bld) [#/Vol] 10*3/uL Normal <0.01 [facility] Comment on above: Order Comment: Speci men Type: BLOOD SPECIMEN [facility] Address: [address] [place] [address] Performed By: #### 5 8410-2 #### [facility] CLIA [id number] [address] Platelet mean volume (Bld) [Entitic vol] 9.9 fL Normal 9.0-12.7 [facility] Comment on above: Order Comment: Speci men Type: BLOOD SPECIMEN [facility] Address: [address] [address] Performed By: #### 5 8410-2 #### [facility] CLIA [id number] [address] Platelets (Bld) [#/Vol] 359 10*3/uL Normal 150-400 [facility] Comment on above: Order Comment: Speci men Type: BLOOD SPECIMEN [facility] Address: [address] [address] Performed By: #### 5 8410-2 #### [facility] CLIA [id number] [address] RBC (Bld) [#/Vol] 4.11 10*6/uL Low 4.20-6.00 [facility] Comment on above: Order Comment: Speci keny Type: BLOOD SPECIMEN [facility] Address: [address] [place] [address] Performed By: #### 5 8410-2 #### [facility] CLIA [id number] [address] OF [facility] WBC (Bld) [#/Vol] 18.08 10*3/uL High 3.70-11.00 [facility] Comment on above: Order Comment: Speci keny Type: BLOOD SPECIMEN [facility] Address: [address] [place] [address] Performed By: #### 5 8410-2 #### [facility] CLIA [id number] [address] CONSULTon 07-23-2021 CONSULT HNO ID: [id number] Author: Raji Lees MD Service: Infectious Disease [...] left diabetic foot ulcer, residing in a [facility], [facility] 07/21/2021 for cough, shortness of breath [...] O (more content not included)... Normal [facility] CONSULT PROGon 07-23-2021 CONSULT PROG HNO ID: [id number] Author: Isabel Gao RPh Service: Pharmacy Author [...] have any questions[place] [phone]. Age: [age] year old Allergies: ALLERGIES Allergen [...] Value 07/23/2021 0044 21.0 (H) Isabel Gao [facility] Normal [facility] Gas and Carbon monoxide pane l (BldV)on 07-23-2021 Base excess Calc (BldV) [Moles/Vol] 2 mmol/L Normal 0-2 [facility] Comment on above: Order Comment: Speci men Type: VENOUS BLOOD SPECIMENOrdering Facility: [facility] Address: [address] [place] [address] Performed By: #### 2 4344-4 ####[facility]ORYCLIA [id number] [address] STATES OF [facility] Body temperature 98.24 [degF] Normal [facility] Comment on above: Order Comment: Speci men Type: VENOUS BLOOD SPECIMENOrdering Facility: [facility] Address: [address] [place] [address] Performed By: #### 2 4344-4 ####[facility]ORYCLIA [id number] [address] [place] CALCIUM IONIZED, PH CORRECTED 1.06 mmol/L Low 1.08-1.30 [facility] Comment on above: Order Comment: Speci men Type: VENOUS BLOOD SPECIMENOrdering Facility: [facility] Address: [address] [place] [address] Performed By: #### 2 4344-4 ####[facility]ORYCLIA [id number] [address] [place] Calcium.ionized (BldV) [Mass/Vol] 1.12 mmol/L Normal 1.08-1.30 [facility] Comment on above: Order Comment: Speci men Type: VENOUS BLOOD SPECIMENOrdering Facility: [facility] Address: [address] [place] [address] Performed By: #### 2 4344-4 ####[facility]ORYCLIA [id number] [address] Carboxyhemoglobin (BldV) [Mass fraction] 1.6 % Normal 0.0-2.0 [facility] Comment on above: Order Comment: Speci men Type: VENOUS BLOOD SPECIMENOrdering Facility: [facility] Address: [address] [place] [address] Result Comment: Carb oxyhemoglobin Reference Range for Smokers: 2.0-8.0% Performed By: #### 2 4344-4 ####[facility]ORYCLIA [id number] [address] [place] CO2 (BldV) [Partial pressure] 62 mm[Hg] High 42-55 [facility] Comment on above: Order Comment: Speci men Type: VENOUS BLOOD SPECIMENOrdering Facility: [facility] Address: [address] [place] [address] Performed By: #### 2 4344-4 ####[facility]ORYCLIA [id number] [address] [place] CO2 [Moles/Vol] 27 mmol/L Normal 25-29 [facility] Comment on above: Order Comment: Speci men Type: VENOUS BLOOD SPECIMENOrdering Facility: [facility] Address: [address] [place] [address] Performed By: #### 2 4344-4 ####[facility]ORYCLIA [id number] [address] [place] CO2 adjusted to patient's actual temperature (BldV) [Partial pressure] 61 mmHg High 42-55 [facility] Comment on above: Order Comment: Speci men Type: VENOUS BLOOD SPECIMENOrdering Facility: [facility] Address: [address] [place] [address] Performed By: #### 2 4344-4 ####[facility]ORYCLIA [id number] [address] [place] Glucose [Mass/Vol] mg/dL High 60-105 [facility] Comment on above: Order Comment: Speci men Type: VENOUS BLOOD SPECIMENOrdering Facility: [facility] Address: [address] [place] [address] Result Comment: Resu lt is above the technical range. Suggest that a glucose order be sent to the laboratory for testing. Performed By: #### 2 4344-4 ####[facility]ORYCLIA [id number] [place] [address] [place] HCO3 (Bld) [Moles/Vol] 29 mmol/L High 24-28 [facility] Comment on above: Order Comment: Speci men Type: VENOUS BLOOD SPECIMENOrdering Facility: [facility] Address: [address] [place] [address] Performed By: #### 2 4344-4 ####[facility]ORYCLIA [id number] [address] [place] Hematocrit (Bld) [Volume fraction] 33.5 % Low 39.0-51.0 [facility] Comment on above: Order Comment: Speci men Type: VENOUS BLOOD SPECIMENOrdering Facility: [facility] Address: [address] [place] [address] Performed By: #### 2 4344-4 ####[facility]ORYCLIA [id number] [place] [address] [place] Hemoglobin (Bld) [Mass/Vol] 10.8 g/dL Low 13.0-17.0 [facility] Comment on above: Order Comment: Speci men Type: VENOUS BLOOD SPECIMENOrdering Facility: [facility] Address: [address] [place] [address] Performed By: #### 2 4344-4 ####[facility]ORYCLIA [id number] [address] [place] Methemoglobin (Bld) [Mass fraction] % Normal 0.0-1.5 [facility] Comment on above: Order Comment: Speci men Type: VENOUS BLOOD SPECIMENOrdering Facility: [facility] Address: [address] [address] Performed By: #### 2 4344-4 ####[facility]ORYCLIA [id number] [address] [place] O2 THERAPY Positive Normal [facility] Comment on above: Order Comment: Speci men Type: VENOUS BLOOD SPECIMENOrdering Facility: [facility] Address: [address] [address] Performed By: #### 2 4344-4 ####[facility]ORATORYCLIA [id number] [address] [place] Oxygen (BldV) [Partial pressure] 52 mm[Hg] High 3545 [facility] Comment on above: Order Comment: Speci men Type: VENOUS BLOOD SPECIMENOrdering Facility: [facility] Address: [address] [address] Performed By: #### 2 4344-4 ####[facility]ATORYCLIA [id number] [address] Oxygen adjusted to patient's actual temperature (BldV) [Partial pressure] 52 mmHg High [address] Comment on above: Order Comment: Speci men Type: VENOUS BLOOD SPECIMENOrdering Facility: [facility] Address: [address] [place] [address] Performed By: #### 2 4344-4 ####[facility]ORYCLIA [id number] [address] [place] Oxygen saturation in Blood 83 % Normal 60-85 [facility] Comment on above: Order Comment: Speci men Type: VENOUS BLOOD SPECIMENOrdering Facility: [facility] Address: [facility] [place] [address] Performed By: #### 2 4344-4 ####[facility]ATORYCLIA [id number] [address] [place] Oxyhemoglobin (BldV) [Mass fraction] 81 % Normal 60-85 [facility] Comment on above: Order Comment: Speci men Type: VENOUS BLOOD SPECIMENOrdering Facility: [facility] Address: [address] [place] [address] Performed By: #### 2 4344-4 ####[facility] LABORATORYCLIA [id number] [address] [place] pH (BldV) 7.29 [pH] Low 7.32-7.42 [facility] Comment on above: Order Comment: Speci men Type: VENOUS BLOOD SPECIMENOrdering Facility: [facility] Address: [address] [place] [address] Performed By: #### 2 4344-4 ####[facility]ATORYCLIA [id number] [address] OF [facility] pH adjusted to patient's actual temperature (BldV) 7.29 Low 7.32-7.42 [facility] Comment on above: Order Comment: Speci men Type: VENOUS BLOOD SPECIMENOrdering Facility: [facility] Address: [address] [place] [address] Performed By: #### 2 4344-4 ####[facility]ORATORYCLIA [id number] [address] [place] Potassium [Moles/Vol] 5.1 mmol/L High 3.5-5.0 [facility] Comment on above: Order Comment: Speci men Type: VENOUS BLOOD SPECIMENOrdering Facility: [facility] Address: [address] [place] [address] Performed By: #### 2 4344-4 ####[facility]ORATORYCLIA [id number] [place] [address] [place] Sodium [Moles/Vol] 131 mmol/L Low 136-144 [facility] Comment on above: Order Comment: Speci men Type: VENOUS BLOOD SPECIMENOrdering Facility: [facility] Address: [address] [place] [address] Performed By: #### 2 4344-4 ####[facility]ATORYCLIA [id number] [place] [address] [place] Renal function 2000 panelon 07-23-2021 Albumin [Mass/Vol] 3.0 g/dL Low 3.9-4.9 [facility] Comment on above: Order Comment: Speci men Type: BLOOD SPECIMENOrdering Facility: [facility] Address: [address] [place] [address] Performed By: #### 2 4362-6 ####[facility]ORATORYCLIA [id number] [address] [place] Anion gap [Moles/Vol] 11 mmol/L Normal 9-18 [facility] Comment on above: Order Comment: Speci men Type: BLOOD SPECIMENOrdering Facility: [facility] Address: [address] [place] [address] Performed By: #### 2 4362-6 ####[facility]ATORYCLIA [id number] [address] [place] Calcium [Mass/Vol] 8.8 mg/dL Normal 8.5-10.2 [facility] Comment on above: Order Comment: Speci men Type: BLOOD SPECIMENOrdering Facility: [facility] Address: [address] [place] [address] Performed By: #### 2 4362-6 ####[facility]ATORYCLIA [id number] [place] [address] [place] Chloride [Moles/Vol] 95 mmol/L Low 97-105 [facility] Comment on above: Order Comment: Speci men Type: BLOOD SPECIMENOrdering Facility: [facility] Address: [address] [place] [address] Performed By: #### 2 4362-6 ####[facility]ATORYCLIA [id number] [place] [address] [place] CO2 [Moles/Vol] 26 mmol/L Normal 22-30 [facility] Comment on above: Order Comment: Speci men Type: BLOOD SPECIMENOrdering Facility: [facility] Address: [address] [place] [address] Performed By: #### 2 4362-6 ####[facility]ORATORYCLIA [id number] [place] [id number] [place] Creatinine [Mass/Vol] 1.74 mg/dL High 0.73-1.22 [facility] Comment on above: Order Comment: Spectracie bustillo Type: BLOOD SPECIMENOrdering Facility: [facility] Address: [address] [address] Performed By: #### 2 4362-6 ####[facility]ORATORYCLIA [id number] [address] OF [facility] ESTIMATED GLOMERULAR FILTRATION RATE 43 mL/min/1.73m??? Low >=60 [facility] Comment on above: Order Comment: Crystal bustillo Type: BLOOD SPECIMENOrdering Facility: [facility] Address: [address] [place] [address] Result Comment: Anu mated Glomerular Filtration Rate [...] actual GFR. Performed By: #### 2 4362-6 ####[facility]ORATORYCLIA [id number] [address] [place] Glucose [Mass/Vol] 319 mg/dL High 74-99 [facility] Comment on above: Order Comment: Crystal keny Type: BLOOD SPECIMENOrdering Facility: [facility] Address: [address] [address] Result Comment: The [place] [employer] (ADA) provides guidance for cutoff [...] Standards of Medical Care in Diabetes 2016, [place] [employer]. Diabetes Care. 2016.39(Suppl 1). Performed By: #### 2 4362-6 ####[facility]ORATORYCLIA [id number] [place] [address] [place] Phosphate [Mass/Vol] 3.1 mg/dL Normal 2.7-4.8 [facility] Comment on above: Order Comment: Speci men Type: BLOOD SPECIMENOrdering Facility: [facility] Address: [address] [place] [address] Performed By: #### 2 4362-6 ####[facility]ATORYCLIA [id number] [place] [address] [place] Potassium [Moles/Vol] 5.2 mmol/L High 3.7-5.1 [facility] Comment on above: Order Comment: Speci men Type: BLOOD SPECIMENOrdering Facility: [facility] Address: [address] [place] [address] Performed By: #### 2 4362-6 ####[facility]ATORYCLIA [id number] [address] [place] Sodium [Moles/Vol] 132 mmol/L Low 136-144 [facility] Comment on above: Order Comment: Speci men Type: BLOOD SPECIMENOrdering Facility: [facility] Address: [address] [address] Performed By: #### 2 4362-6 ####[facility]ORATORYCLIA [id number] [place] [address] [place] Urea nitrogen [Mass/Vol] 42 mg/dL High 9-24 [facility] Comment on above: Order Comment: Speci men Type: BLOOD SPECIMENOrdering Facility: [facility] Address: [address] [address] Performed By: #### 2 4362-6 ####[facility]ORATORYCLIA [id number] [address] Urinalysis complete panel (U )on 07-23-2021 Bilirubin Ql (U) Negative Normal Negative [facility] Comment on above: Order Comment: Speci men Type: URINE SPECIMENOrdering Facility: [facility] Address: [address] [place] [address] Performed By: #### 2 4356-8 ####[facility]ATORYCLIA [id number] [address] [place] Clarity (Unsp spec) Turbid Abnormal Clear [facility] Comment on above: Order Comment: Speci men Type: URINE SPECIMENOrdering Facility: [facility] Address: [address] [place] [address] Performed By: #### 2 4356-8 ####[facility]ATORYCLIA [id number] [address] Color (U) Yellow Normal yellow [facility] Comment on above: Order Comment: Speci men Type: URINE SPECIMENOrdering Facility: [facility] Address: [address] [place] [address] Performed By: #### 2 4356-8 ####[facility]ATORYCLIA [id number] [address] Glucose Test strip (U) [Mass/Vol] Trace Abnormal Negative [facility] Comment on above: Order Comment: Speci men Type: URINE SPECIMENOrdering Facility: [facility] Address: [facility] [place] [address] Performed By: #### 2 4356-8 ####[facility]ATORYCLIA [id number] [address] Hemoglobin Ql (U) Negative Normal Negative [facility] Comment on above: Order Comment: Speci men Type: URINE SPECIMENOrdering Facility: [facility] Address: [facility] [place] [address] Performed By: #### 2 4356-8 ####[facility]ATORYCLIA [id number] [address] Ketones Ql (U) Negative Normal Negative [facility] Comment on above: Order Comment: Speci men Type: URINE SPECIMENOrdering Facility: [facility] Address: [address] [place] [address] Performed By: #### 2 4356-8 ####[facility]ATORYCLIA [id number] [address] Leukocyte esterase Test strip Ql (U) Negative Normal Negative [facility] Comment on above: Order Comment: Speci men Type: URINE SPECIMENOrdering Facility: [facility] Address: [address] [place] [address] Performed By: #### 2 4356-8 ####[facility]ATORYCLIA [id number] [address] Nitrite Ql (U) Negative Normal Negative [facility] Comment on above: Order Comment: Speci men Type: URINE SPECIMENOrdering Facility: [facility] Address: [address] [place] [address] Performed By: #### 2 4356-8 ####[facility]ATORYCLIA [id number] [address] [place] pH (U) 5.0 [pH] Normal 5.0-8.0 [facility] Comment on above: Order Comment: Speci men Type: URINE SPECIMENOrdering Facility: [facility] Address: [address] [place] [address] Performed By: #### 2 4356-8 ####[facility]ATORYCLIA [id number] [address] STATES [facility] Protein (U) [Mass/Vol] 1+ Abnormal Negative [facility] Comment on above: Order Comment: Speci men Type: URINE SPECIMENOrdering Facility: [facility] Address: [address] [place] [address] Performed By: #### 2 4356-8 ####[facility]ATORYCLIA [id number] [address] RBC LM.HPF (Urine sed) [#/Area] 0-3 /HPF Normal 0-3 /HPF [facility] Comment on above: Order Comment: Speci men Type: URINE SPECIMENOrdering Facility: [facility] Address: [address] [place] [address] Performed By: #### 2 4356-8 ####[facility]ATORYCLIA [id number] [address] Specific gravity (U) [Rel density] 1.021 Normal 1.005-1.030 [facility] Comment on above: Order Comment: Speci men Type: URINE SPECIMENOrdering Facility: [facility] Address: [address] [place] [address] Performed By: #### 2 4356-8 ####[facility]ATORYCLIA [id number] [address] Urobilinogen Ql (U) Normal Normal Negative [facility] Comment on above: Order Comment: Speci men Type: URINE SPECIMENOrdering Facility: [facility] Address: [address] [place] [address] Performed By: #### 2 4356-8 ####[facility]ATORYCLIA [id number] [address] WBC LM.HPF (Urine sed) [#/Area] 0-5 /HPF Normal 0-5 /HPF [facility] Comment on above: Order Comment: Speci men Type: URINE SPECIMENOrdering Facility: [facility] Address: [address] [place] [address] Performed By: #### 2 4356-8 ####[facility]ATORYCLIA [id number] [address] OF [facility] Vancomycin random [Mass/Vol] on 07-23-2021 Vancomycin [Mass/Vol] 21.0 ug/mL High 10.0-20.0 [facility] Comment on above: Order Comment: Speci men Type: BLOOD SPECIMENOrdering Facility: [facility] Address: [address] [place] [address] Result Comment: Refe rence ranges and high/low indicator flags are provided as general guidelines only. The treating physician must determine appropriate target levels/dosing based on the specific clinical situation. Performed By: #### 4 091-5 ####[facility] LABORATORYCLIA [id number] [address] STATES OF [facility] Basic metabolic 2000 panelon 07-22-2021 Anion gap [Moles/Vol] 10 mmol/L Normal 9-18 [facility] Comment on above: Order Comment: Speci men Type: BLOOD SPECIMENOrdering Facility: [facility] Address: [address] [place] [address] Performed By: #### 3 2355-0 #### [facility] CLIA [id number] [address] [place] [address] [place] Calcium [Mass/Vol] 8.5 mg/dL Normal 8.5-10.2 [facility] Comment on above: Order Comment: Speci men Type: BLOOD SPECIMENOrdering Facility: [facility] Address: [address] [place] [address] Performed By: #### 3 2355-0 #### [facility] CLIA [id number] [address] [place] [address] [place] [facility] Chloride [Moles/Vol] 100 mmol/L Normal 97-105 [facility] Comment on above: Order Comment: Speci men Type: BLOOD SPECIMENOrdering Facility: [facility] Address: [address] [place] [address] Performed By: #### 3 2355-0 #### [facility] CLIA [id number] [address] [place] [address] [place] CO2 [Moles/Vol] 27 mmol/L Normal 22-30 [facility] Comment on above: Order Comment: Speci men Type: BLOOD SPECIMENOrdering Facility: [facility] Address: [address] [address] Performed By: #### 3 2355-0 #### [facility] CLIA [id number] [address] [place] [address] [place] Creatinine [Mass/Vol] 1.73 mg/dL High 0.73-1.22 [facility] Comment on above: Order Comment: Echotracie bustillo Type: BLOOD SPECIMENOrdering Facility: [facility] Address: [address] [place] [address] Performed By: #### 3 2355-0 #### [facility] CLIA [id number] [address] [place] [place] ESTIMATED GLOMERULAR FILTRATION RATE 44 mL/min/1.73m??? Low >=60 [facility] Comment on above: Order Comment: Crystal keny Type: BLOOD SPECIMENOrdering Facility: [facility] Address: [address] [place] [address] Result Comment: Anu mated Glomerular Filtration Rate [...] GFR. Performed By: #### 3 2355-0 #### [facility] CLIA [id number] [address] [place] Glucose [Mass/Vol] 118 mg/dL High 74-99 [facility] Comment on above: Order Comment: Speci keny Type: BLOOD SPECIMENOrdering Facility: [facility] Address: [address] [place] [address] Result Comment: The [place] [employer] (ADA) provides guidance for cutoff [...] Standards of Medical Care in Diabetes 2016, [place] [employer]. Diabetes Care. 2016.39(Suppl 1). Performed By: #### 3 2355-0 #### [facility] CLIA [id number] [address] STATES OF [facility] Potassium [Moles/Vol] 5.0 mmol/L Normal 3.7-5.1 [facility] Comment on above: Order Comment: Speci men Type: BLOOD SPECIMENOrdering Facility: [facility] Address: [address] [place] [address] Performed By: #### 3 2355-0 #### [facility] CLIA [id number] [address] Sodium [Moles/Vol] 137 mmol/L Normal 136-144 [facility] Comment on above: Order Comment: Speci men Type: BLOOD SPECIMENOrdering Facility: [facility] Address: [address] [place] [address] Performed By: #### 3 2355-0 #### [facility] CLIA [id number] [address] Urea nitrogen [Mass/Vol] 29 mg/dL High 9-24 [facility] Comment on above: Order Comment: Speci men Type: BLOOD SPECIMENOrdering Facility: [facility] Address: [address] [place] [address] Performed By: #### 3 2355-0 #### [facility] CLIA [id number] [address] [place] CBC panel Auto (Bld)on 07-22 Erythrocyte distribution width (RBC) [Ratio] 15.5 % High 11.5-15.0 [facility] Comment on above: Order Comment: Speci men Type: BLOOD SPECIMEN [facility] Address: [address] [place] [address] Performed By: #### 5 8410-2 #### [facility] CLIA [id number] [address] Hematocrit (Bld) [Volume fraction] 41.8 % Normal 39.0-51.0 [facility] Comment on above: Order Comment: Speci men Type: BLOOD SPECIMEN [facility] Address: [address] [place] [address] Performed By: #### 5 8410-2 #### [facility] CLIA [id number] [address] OF [facility] Hemoglobin (Bld) [Mass/Vol] 12.3 g/dL Low 13.0-17.0 [facility] Comment on above: Order Comment: Speci men Type: BLOOD SPECIMEN [facility] Address: [address] [place] [address] Performed By: #### 5 8410-2 #### [facility] CLIA [id number] [address] MCH (RBC) [Entitic mass] 28.3 pg Normal 26.0-34.0 [facility] Comment on above: Order Comment: Speci men Type: BLOOD SPECIMEN [facility] Address: [address] [place] [address] Performed By: #### 5 8410-2 #### [facility] CLIA [id number] [address] STATES OF [facility] MCHC (RBC) [Mass/Vol] 29.4 g/dL Low 30.5-36.0 [facility] Comment on above: Order Comment: Speci men Type: BLOOD SPECIMEN [facility] Address: [address] [place] [address] Performed By: #### 5 8410-2 #### [facility] CLIA [id number] [address] MCV (RBC) [Entitic vol] 96.1 fL Normal 80.0-100.0 [place] Comment on above: Order Comment: Speci men Type: BLOOD SPECIMEN [facility] Address: [address] [address] Performed By: #### 5 8410-2 #### [facility] CLIA [id number] [address] [place] Nucleated RBC (Bld) [#/Vol] 10*3/uL Normal <0.01 [facility] Comment on above: Order Comment: Speci men Type: BLOOD SPECIMEN [facility] Address: [address] [address] Performed By: #### 5 8410-2 #### [facility] CLIA [id number] [address] [place] Platelet mean volume (Bld) [Entitic vol] 9.9 fL Normal 9.0-12.7 [facility] Comment on above: Order Comment: Speci men Type: BLOOD SPECIMEN [facility] Address: [address] [place] [address] Performed By: #### 5 8410-2 #### [facility] CLIA [id number] [address] [place] Platelets (Bld) [#/Vol] 357 10*3/uL Normal 150-400 [facility] Comment on above: Order Comment: Speci men Type: BLOOD SPECIMEN [facility] Address: [address] [address] Performed By: #### 5 8410-2 #### [facility] CLIA [id number] [address] [place] RBC (Bld) [#/Vol] 4.35 10*6/uL Normal 4.20-6.00 [facility] Comment on above: Order Comment: Speci men Type: BLOOD SPECIMEN [facility] Address: [facility] [place] [address] Performed By: #### 5 8410-2 #### [facility] CLIA [id number] [address] [place] WBC (Bld) [#/Vol] 15.27 10*3/uL High 3.70-11.00 [facility] Comment on above: Order Comment: Speci men Type: BLOOD SPECIMEN [facility] Address: [address] [place] [address] Performed By: #### 5 8410-2 #### [facility] CLIA [id number] [address] [place] [place] Gas and Carbon monoxide pane l (BldV)on 07-22-2021 BASE DEFICIT, VENOUS -1 mmol/L Normal -2-0 [facility] Comment on above: Order Comment: Speci men Type: BLOOD SPECIMEN [facility] Address: [address] [place] [address] Performed By: #### 5 8410-2 #### [facility] CLIA [id number] [address] Body temperature 97.88 [degF] Normal [facility] Comment on above: Order Comment: Speci men Type: BLOOD SPECIMEN [facility] Address: [address] [place] [address] Performed By: #### 5 8410-2 #### [facility] CLIA [id number] [address] STATES OF [facility] CALCIUM IONIZED, PH CORRECTED 1.11 mmol/L Normal 1.08-1.30 [facility] Comment on above: Order Comment: Speci men Type: BLOOD SPECIMEN [facility] Address: [address] [place] [address] Performed By: #### 5 8410-2 #### [facility] CLIA [id number] [address] [place] Calcium.ionized (BldV) [Mass/Vol] 1.20 mmol/L Normal 1.08-1.30 [facility] Comment on above: Order Comment: Speci men Type: BLOOD SPECIMEN [facility] Address: [address] [place] [address] Performed By: #### 5 8410-2 #### [facility] CLIA [id number] [address] Carboxyhemoglobin (BldV) [Mass fraction] 1.3 % Normal 0.0-2.0 [facility] Comment on above: Order Comment: Speci men Type: BLOOD SPECIMEN [facility] Address: [address] [place] [address] Result Comment: Carb oxyhemoglobin Reference Range for Smokers: 2.0-8.0% Performed By: #### 5 8410-2 #### [facility] CLIA [id number] [address] CO2 (BldV) [Partial pressure] 63 mm[Hg] High 42-55 [facility] Comment on above: Order Comment: Speci men Type: BLOOD SPECIMEN [facility] Address: [address] [place] [address] Performed By: #### 5 8410-2 #### [facility] CLIA [id number] [address] [place] CO2 [Moles/Vol] 26 mmol/L Normal 25-29 [facility] Comment on above: Order Comment: Speci men Type: BLOOD SPECIMEN [facility] Address: [address] [place] [address] Performed By: #### 5 8410-2 #### [facility] CLIA [id number] [address] [place] [place] CO2 adjusted to patient's actual temperature (BldV) [Partial pressure] 62 mmHg High 42-55 [facility] Comment on above: Order Comment: Speci men Type: BLOOD SPECIMEN [facility] Address: [address] [place] [address] Performed By: #### 5 8410-2 #### [facility] CLIA [id number] [address] [place] Glucose [Mass/Vol] 198 mg/dL High 60-105 [facility] Comment on above: Order Comment: Speci men Type: BLOOD SPECIMEN [facility] Address: [address] [address] Performed By: #### 5 8410-2 #### [facility] CLIA [id number] [address] OF [facility] HCO3 (Bld) [Moles/Vol] 27 mmol/L Normal 24-28 [facility] Comment on above: Order Comment: Speci men Type: BLOOD SPECIMEN [facility] Address: [address] [place] [address] Performed By: #### 5 8410-2 #### [facility] CLIA [id number] [address] Hematocrit (Bld) [Volume fraction] 35.2 % Low 39.0-51.0 [facility] Comment on above: Order Comment: Speci men Type: BLOOD SPECIMEN [facility] Address: [address] [address] Performed By: #### 5 8410-2 #### [facility] CLIA [id number] [address] Hemoglobin (Bld) [Mass/Vol] 11.4 g/dL Low 13.0-17.0 [facility] Comment on above: Order Comment: Speci men Type: BLOOD SPECIMEN Ordering Facility: [facility] Address: [address] [address] Performed By: #### 5 8410-2 #### [facility] CLIA [id number] [address] LITERS 15 Liters/min Normal [facility] Comment on above: Order Comment: Speci men Type: BLOOD SPECIMEN Ordering Facility: [facility] Address: [address] [place] [address] Performed By: #### 5 8410-2 #### [facility] CLIA [id number] [address] Methemoglobin (Bld) [Mass fraction] % Normal 0.0-1.5 [facility] Comment on above: Order Comment: Speci men Type: BLOOD SPECIMEN Ordering Facility: [facility] Address: [address] [address] Performed By: #### 5 8410-2 #### [facility] CLIA [id number] [address] O2 THERAPY Venti Mask Normal [facility] Comment on above: Order Comment: Speci men Type: BLOOD SPECIMEN Ordering Facility: [facility] Address: [address] [place] [address] Performed By: #### 5 8410-2 #### [facility] CLIA [id number] [address] Oxygen (BldV) [Partial pressure] 57 mm[Hg] High 35-45 [facility] Comment on above: Order Comment: Speci men Type: BLOOD SPECIMEN Ordering Facility: [facility] Address: [address] [address] Performed By: #### 5 8410-2 #### [facility] CLIA [id number] [address] Oxygen adjusted to patient's actual temperature (BldV) [Partial pressure] 56 mmHg High 35-45 [facility] Comment on above: Order Comment: Speci men Type: BLOOD SPECIMEN Ordering Facility: [facility] Address: [address] [address] Performed By: #### 5 8410-2 #### [facility] CLIA [id number] [address] [place] Oxygen saturation in Blood 88 % High 60-85 [facility] Comment on above: Order Comment: Speci men Type: BLOOD SPECIMEN Ordering Facility: [facility] Address: [address] [address] Performed By: #### 5 8410-2 #### [facility] CLIA [id number] [address] [place] Oxyhemoglobin (BldV) [Mass fraction] 86 % High 60-85 [facility] Comment on above: Order Comment: Speci men Type: BLOOD SPECIMEN Ordering Facility: [facility] Address: [address] [place] [address] Performed By: #### 5 8410-2 #### [facility] CLIA [id number] [address] [place] pH (BldV) 7.26 [pH] Low 7.32-7.42 [facility] Comment on above: Order Comment: Speci men Type: BLOOD SPECIMEN Ordering Facility: [facility] Address: [address] [place] [address] Performed By: #### 5 8410-2 #### [facility] CLIA [id number] [address] pH adjusted to patient's actual temperature (BldV) 7.26 Low 7.32-7.42 [facility] Comment on above: Order Comment: Speci men Type: BLOOD SPECIMEN Ordering Facility: [facility] Address: [address] [place] [address] Performed By: #### 5 8410-2 #### [facility] CLIA [id number] [address] [place] Potassium [Moles/Vol] 4.9 mmol/L Normal 3.5-5.0 [facility] Comment on above: Order Comment: Speci men Type: BLOOD SPECIMEN Ordering Facility: [facility] Address: [address] [place] [address] Performed By: #### 5 8410-2 #### [facility] CLIA [id number] [address] [place] Sodium [Moles/Vol] 136 mmol/L Normal 136-144 [facility] Comment on above: Order Comment: Speci men Type: BLOOD SPECIMEN Ordering Facility: [facility] Address: [address] [place] [address] Performed By: #### 5 8410-2 #### [facility] CLIA [id number] [address] [place] [address] [place] Legionella Ag Ur Qlon 2021 Legionella sp Ag Ql (U) Negative Normal Negative [facility] Comment on above: Order Comment: Speci men Type: URINE SPECIMENOrdering Facility: [facility] Address: [address] [place] [address] Performed By: #### 3 2781-7 ####[facility] [id number] [place] [address] [place] Magnesium SerPl-mCncon 07-22 Magnesium [Mass/Vol] 2.0 mg/dL Normal 1.7-2.3 [facility] Comment on above: Order Comment: Speci men Type: BLOOD SPECIMENOrdering Facility: [facility] Address: [address] [place] [address] Performed By: #### 3 2355-0 #### [facility] CLIA [id number] [address] [place] [address] [place] Phosphate SerPl-mCncon 07-22 Phosphate [Mass/Vol] 4.2 mg/dL Normal 2.7-4.8 [facility] Comment on above: Order Comment: Speci men Type: BLOOD SPECIMENOrdering Facility: [facility] Address: [address] [place] [address] Performed By: #### 3 2355-0 #### [facility] CLIA [id number] [address] [place] [address] [place] STREPTOCOCCUS PNEUMONIAE AGo n 07-22-2021 STREPTOCOCCUS PNEUMONIAE AG STREP PNEUMO AG RESULT: Negative for Streptococcus pneumoniae antigen. Presumptive negative for pneumococcal pneumonia, suggesting no current or recent pneumococcal infection. Infection due to S.pneumoniae cannot be ruled out since the antigen present in the sample may be below the detection limit of the test. Normal [facility] Comment on above: Performed By: #### 5 8410-2 #### [facility] CLIA [id number] [address] [place] [address] [place] ALLIED HEALTHon 07-21-2021 ALLIED HEALTH HNO ID: [id number] Author: RT Jasmeet(R) Service: Radiology Author Type: [...] 21, 2021 TIME: 12:07 PM Normal [facility] Bacteria Bld Culton 07-22-19 22 Bacteria identified Cx Nom (Bld) CULTURE, BLOOD: No growth 5 days Normal [facility] Comment on above: Performed By: #### 6 00-7 #### [facility] CLIA [id number] [address] Bacteria identified Cx Nom (Bld) CULTURE, BLOOD: No growth 5 days Normal [facility] Comment on above: Performed By: #### 6 00-7 #### [facility] CLIA [id number] [address] CBC W Auto Differential pane l (Bld)on 07-21-2021 Basophils (Bld) [#/Vol] 0.04 10*3/uL Normal <0.11 [facility] Comment on above: Order Comment: Speci men Type: BLOOD SPECIMEN Ordering Facility: [facility] Address: [address] [place] [address] Performed By: #### 5 7021-8 #### [facility] CLIA [id number] [address] Basophils/100 WBC (Bld) 0.3 % Normal [facility] Comment on above: Order Comment: Speci men Type: BLOOD SPECIMEN Ordering Facility: [facility] Address: [address] [place] [address] Performed By: #### 5 7021-8 #### [facility] CLIA [id number] [address] Differential cell count method Nom (Bld) Auto Normal [facility] Comment on above: Order Comment: Speci men Type: BLOOD SPECIMEN Ordering Facility: [facility] Address: [address] [address] Performed By: #### 5 7021-8 #### [facility] CLIA [id number] [address] Eosinophils (Bld) [#/Vol] 0.12 10*3/uL Normal <0.46 [facility] Comment on above: Order Comment: Speci men Type: BLOOD SPECIMEN Ordering Facility: [facility] Address: [address] [address] Performed By: #### 5 7021-8 #### [facility] CLIA [id number] [address] Eosinophils/100 WBC (Bld) 0.9 % Normal [facility] Comment on above: Order Comment: Speci men Type: BLOOD SPECIMEN Ordering Facility: [facility] Address: [address] [place] [address] Performed By: #### 5 7021-8 #### [facility] CLIA [id number] [address] Erythrocyte distribution width (RBC) [Ratio] 15.7 % High 11.5-15.0 [facility] Comment on above: Order Comment: Speci men Type: BLOOD SPECIMEN Ordering Facility: [facility] Address: [address] [place] [address] Performed By: #### 5 7021-8 #### [facility] CLIA [id number] [address] Hematocrit (Bld) [Volume fraction] 41.8 % Normal 39.0-51.0 [facility] Comment on above: Order Comment: Speci men Type: BLOOD SPECIMEN Ordering Facility: [facility] Address: [address] [place] [address] Performed By: #### 5 7021-8 #### [facility] CLIA [id number] [address] Hemoglobin (Bld) [Mass/Vol] 13.0 g/dL Normal 13.0-17.0 [facility] Comment on above: Order Comment: Speci men Type: BLOOD SPECIMEN Ordering Facility: [facility] Address: [address] [place] [address] Performed By: #### 5 7021-8 #### [facility] CLIA [id number] [address] IMMATURE GRAN % 0.5 % Normal [facility] Comment on above: Order Comment: Speci men Type: BLOOD SPECIMEN Ordering Facility: [facility] Address: [address] [place] [address] Performed By: #### 5 7021-8 #### [facility] CLIA [id number] [address] IMMATURE GRAN ABS 0.07 k/uL Normal <0.10 [facility] Comment on above: Order Comment: Speci men Type: BLOOD SPECIMEN Ordering Facility: [facility] Address: [address] [place] [address] Performed By: #### 5 7021-8 #### [facility] CLIA [id number] [address] Lymphocytes (Bld) [#/Vol] 0.64 10*3/uL Low 1.00-4.00 [facility] Comment on above: Order Comment: Speci men Type: BLOOD SPECIMEN Ordering Facility: [facility] Address: [address] [place] [address] Performed By: #### 5 7021-8 #### [facility] CLIA [id number] [address] Lymphocytes/100 WBC (Bld) 4.7 % Normal [facility] Comment on above: Order Comment: Speci men Type: BLOOD SPECIMEN Ordering Facility: [facility] Address: [address] [place] [address] Performed By: #### 5 7021-8 #### [facility] CLIA [id number] [address] MCH (RBC) [Entitic mass] 28.2 pg Normal 26.0-34.0 [facility] Comment on above: Order Comment: Speci men Type: BLOOD SPECIMEN Ordering Facility: [facility] Address: [address] [place] [address] Performed By: #### 5 7021-8 #### [facility] CLIA [id number] [address] MCHC (RBC) [Mass/Vol] 31.1 g/dL Normal 30.5-36.0 [facility] Comment on above: Order Comment: Speci men Type: BLOOD SPECIMEN Ordering Facility: [facility] Address: [address] [place] [address] Performed By: #### 5 7021-8 #### [facility] CLIA [id number] [address] MCV (RBC) [Entitic vol] 90.7 fL Normal 80.0-100.0 [facility] Comment on above: Order Comment: Speci men Type: BLOOD SPECIMEN Ordering Facility: [facility] Address: [address] [place] [address] Performed By: #### 5 7021-8 #### [facility] CLIA [id number] [address] [place] Monocytes (Bld) [#/Vol] 0.92 10*3/uL High <0.87 [facility] Comment on above: Order Comment: Speci men Type: BLOOD SPECIMEN Ordering Facility: [facility] Address: [address] [place] [address] Performed By: #### 5 7021-8 #### [facility] CLIA [id number] [address] Monocytes/100 WBC (Bld) 6.7 % Normal [facility] Comment on above: Order Comment: Speci men Type: BLOOD SPECIMEN Ordering Facility: [facility] Address: [address] [place] [address] Performed By: #### 5 7021-8 #### [facility] CLIA [id number] [address] [place] Neutrophils (Bld) [#/Vol] 11.89 10*3/uL High 1.45-7.50 [facility] Comment on above: Order Comment: Speci men Type: BLOOD SPECIMEN Ordering Facility: [facility] Address: [address] [place] [address] Performed By: #### 5 7021-8 #### [facility] CLIA [id number] [address] [place] [place] Neutrophils/100 WBC (Bld) 86.9 % Normal [facility] Comment on above: Order Comment: Speci men Type: BLOOD SPECIMEN Ordering Facility: [facility] Address: [address] Performed By: #### 5 7021-8 #### [facility] CLIA [id number] [address] [place] Nucleated RBC (Bld) [#/Vol] 10*3/uL Normal <0.01 [facility] Comment on above: Order Comment: Speci men Type: BLOOD SPECIMEN Ordering Facility: [facility] Address: [address] Performed By: #### 5 7021-8 #### [facility] CLIA [id number] [address] [place] Nucleated RBC/100 WBC (Bld) [Ratio] 0.0 /100 WBC Normal [facility] Comment on above: Order Comment: Speci men Type: BLOOD SPECIMEN Ordering Facility: [facility] Address: [address] Performed By: #### 5 7021-8 #### [facility] CLIA [id number] [address] [place] Platelet mean volume (Bld) [Entitic vol] 10.1 fL Normal 9.0-12.7 [facility] Comment on above: Order Comment: Speci men Type: BLOOD SPECIMEN Ordering Facility: [facility] Address: [address] Performed By: #### 5 7021-8 #### [facility] CLIA [id number] [address] [place] [address] [place] Platelets (Bld) [#/Vol] 407 10*3/uL High 150-400 [facility] Comment on above: Order Comment: Speci men Type: BLOOD SPECIMEN Ordering Facility: [facility] Address: [address] Performed By: #### 5 7021-8 #### [facility] CLIA [id number] [address] OF [facility] RBC (Bld) [#/Vol] 4.61 10*6/uL Normal 4.20-6.00 [facility] Comment on above: Order Comment: Crystal bustillo Type: BLOOD SPECIMEN Ordering Facility: [facility] Address: [address] [place] [address] Performed By: #### 5 7021-8 #### [facility] CLIA [id number] [address] WBC (Bld) [#/Vol] 13.68 10*3/uL High 3.70-11.00 [facility] Comment on above: Order Comment: Crystal bustillo Type: BLOOD SPECIMEN Ordering Facility: [facility] Address: [address] [place] [address] Performed By: #### 5 7021-8 #### [facility] CLIA [id number] [address] CONSULTon 07-21-2021 CONSULT HNO ID: [id number] Author: Whitney Johnson DO Service: Critical Care [...] not on home oxygen who presents from extended-care facility for hypoxia per EMS was 80% [...] membr (more content not included)... Normal [facility] CONSULT PROGon 07-21-2021 CONSULT PROG HNO ID: [id number] Author: Nancy Gong alfonso Service: Pharmacy Author Type: Pharmacist Type: Consult [...] have any questions[place] [phone]. Addendum: July 22, 2021 2:47 PM Patient's [...] the 4th dose of vancomycin. -Nancy Gong RP Age: [age] year old Allergies: ALLERGIES Allergen [...] Vancomycin Levels: No results found for: VESNA Moran [facility] Normal [facility] CT CHEST W IVCON PEon 2021 CT CHEST W IVCON PE * * *Final Report* * * DATE OF EXAM: Jul 21 2021 12:06PM [facility] 0540 - CT CHEST W IVCON [...] findings. Upper abdomen: No significant additional findings. Assistant Athletic Trainer (topogram) images: No significant additional findings. IMPRESSION: [...] diameter. 8. Nonunion of median sternotomy defect. Supervisor Felling Bucking: DUYEN Transcribe Date/Time: Jul 21 2021 12:29P Dictated by : CHELLE CHILD MD This examination was interpreted and the report reviewed and electronically signed by: CHELLE CHILD MD on Jul 21 2021 12:41PM EST [id number] Normal [facility] Comprehensive metabolic 2000 panelon 07-21-2021 Albumin [Mass/Vol] 3.3 g/dL Low 3.9-4.9 [facility] Comment on above: Order Comment: Speci men Type: BLOOD SPECIMEN Ordering Facility: [facility] Address: [address] [place] [id number] Performed By: #### 5 8410-2 #### [facility] CLIA [id number] 1 [place] [address] [place] ALP [Catalytic activity/Vol] 88 U/L Normal 38-113 [facility] Comment on above: Order Comment: Speci men Type: BLOOD SPECIMEN Ordering Facility: [facility] Address: [facility] [address] Performed By: #### 5 8410-2 #### [facility] CLIA [id number] [address] ALT With P-5'-P [Catalytic activity/Vol] 10 U/L Normal 10-54 [facility] Comment on above: Order Comment: Speci men Type: BLOOD SPECIMEN Ordering Facility: [facility] Address: [address] [place] [address] Performed By: #### 5 8410-2 #### [facility] CLIA [id number] [address] Anion gap [Moles/Vol] 12 mmol/L Normal 9-18 [facility] Comment on above: Order Comment: Speci men Type: BLOOD SPECIMEN Ordering Facility: [facility] Address: [address] [place] [address] Performed By: #### 5 8410-2 #### [facility] CLIA [id number] [address] AST With P-5'-P [Catalytic activity/Vol] 10 U/L Low 14-40 [facility] Comment on above: Order Comment: Speci men Type: BLOOD SPECIMEN Ordering Facility: [facility] Address: [address] [place] [address] Performed By: #### 5 8410-2 #### [facility] CLIA [id number] [address] Bilirubin [Mass/Vol] 0.3 mg/dL Normal 0.2-1.3 [facility] Comment on above: Order Comment: Speci men Type: BLOOD SPECIMEN Ordering Facility: [facility] Address: [address] [place] [address] Performed By: #### 5 8410-2 #### [facility] CLIA [id number] [address] [place] Calcium [Mass/Vol] 9.2 mg/dL Normal 8.5-10.2 [facility] Comment on above: Order Comment: Speci men Type: BLOOD SPECIMEN Ordering Facility: [facility] Address: [address] [place] [address] Performed By: #### 5 8410-2 #### [facility] CLIA [id number] [address] [place] Chloride [Moles/Vol] 101 mmol/L Normal 97-105 [facility] Comment on above: Order Comment: Speci men Type: BLOOD SPECIMEN Ordering Facility: [facility] Address: [address] [place] [address] Performed By: #### 5 8410-2 #### [facility] CLIA [id number] [address] [place] [address] [place] CO2 [Moles/Vol] 27 mmol/L Normal 22-30 [facility] Comment on above: Order Comment: Speci men Type: BLOOD SPECIMEN Ordering Facility: [facility] Address: [address] [place] [address] Performed By: #### 5 8410-2 #### [facility] CLIA [id number] [address] [place] Creatinine [Mass/Vol] 1.52 mg/dL High 0.73-1.22 [facility] Comment on above: Order Comment: Speci men Type: BLOOD SPECIMEN Ordering Facility: [facility] Address: [address] [place] [address] Performed By: #### 5 8410-2 #### [facility] CLIA [id number] [address] ESTIMATED GLOMERULAR FILTRATION RATE 51 mL/min/1.73m??? Low >=60 [facility] Comment on above: Order Comment: Speci men Type: BLOOD SPECIMEN Ordering Facility: [facility] Address: [address] [place] [address] Result Comment: Anu mated Glomerular Filtration Rate [...] GFR. Performed By: #### 5 8410-2 #### [facility] CLIA [id number] [address] [place] [address] [place] Glucose [Mass/Vol] 61 mg/dL Low 74-99 [facility] Comment on above: Order Comment: Crystal bustillo Type: BLOOD SPECIMEN Ordering Facility: [facility] Address: [address] [place] [address] Result Comment: The [place] [employer] (ADA) provides guidance for cutoff [...] Standards of Medical Care in Diabetes 2016, [place] [employer]. Diabetes Care. 2016.39(Suppl 1). Performed By: #### 5 8410-2 #### [facility] CLIA [id number] [address] [place] [address] [place] Potassium [Moles/Vol] 4.5 mmol/L Normal 3.7-5.1 [facility] Comment on above: Order Comment: Crystal bustillo Type: BLOOD SPECIMEN Ordering Facility: [facility] Address: [address] [address] Performed By: #### 5 8410-2 #### [facility] CLIA [id number] [address] [place] [address] [place] Protein [Mass/Vol] 7.0 g/dL Normal 6.3-8.0 [facility] Comment on above: Order Comment: Speci men Type: BLOOD SPECIMEN Ordering Facility: [facility] Address: [address] [place] [address] Performed By: #### 5 8410-2 #### [facility] CLIA [id number] [address] Sodium [Moles/Vol] 140 mmol/L Normal 136-144 [facility] Comment on above: Order Comment: Speci men Type: BLOOD SPECIMEN Ordering Facility: [facility] Address: [address] [place] [address] Performed By: #### 5 8410-2 #### [facility] CLIA [id number] [address] [place] Urea nitrogen [Mass/Vol] 25 mg/dL High 9-24 [facility] Comment on above: Order Comment: Speci men Type: BLOOD SPECIMEN Ordering Facility: [facility] Address: [address] [place] [address] Performed By: #### 5 8410-2 #### [facility] CLIA [id number] [address] ED NOTEon 07-21-2021 ED NOTE HNO ID: [id number] Author: Phil Graham RN Service: Emergency Medicine Author Type: Registered Nurse Type: ED Notes Filed: 07/21/2021 4:51 PM Note Text: Pt. Needed to be placed on 15L NRB after only satting 85% consistently on 50% venti mask. Pt. Also repositioned and sat up in bed. Provider notified. [facility] ED NOTE HNO ID: [id number] Author: Raza Gimenez RN Service: Emergency Medicine Author Type: Registered Nurse Type: ED Notes Filed: 07/21/2021 11:58 AM Note Text: Transported to CT. [facility] ED NOTE HNO ID: [id number] Author: Maribell Salazar RN Service: Emergency Medicine Author Type: Registered Nurse Type: ED Notes Filed: 07/21/2021 9:50 AM Note Text: ED attending at bedside assessing pt Normal [facility] ED NOTE HNO ID: [id number] Author: Maribell Salazar RN Service: Emergency Medicine Author Type: Registered Nurse Type: ED Notes Filed: 07/21/2021 9:34 AM Note Text: Patient's identity verified by patient stating name, Patient's identity verified by patient stating date, Patient's identity verified by hospital ID [email or web address]. Patient placed on pomologist, patient placed on non-invasive blood pressure monitor, patient placed on continuous pulse oximetry. Alarms set and on, patient tolerating monitoring. Normal [facility] ED PROV NOTEon 07-21-2021 ED PROV NOTE HNO ID: [id number] Author: Darlin Hanna MD Service: Emergency Medicine [...] and shortness of breath. Patient come from [facility]. He was complaining of having shortness [...] Labs Ordered and Reviewed VENOUS BLOOD GAS, ED-POC(RI) - Abnormal; Notable for the following components: Result Value Ref Range pCO2,Venous(POCT) 60.7 (*) 40.6 - 60.0 mmHg COHb,Venous(POCT) 2.3 (* (more content not included)... Normal [facility] HIGH SENSITIVITY TROPONIN To n 07-21-2021 HIGH SENSITIVITY MEDARDO 34 ng/L High <12 [facility] Comment on above: Order Comment: Crystal bustillo Type: BLOOD SPECIMEN Ordering Facility: [facility] Address: [address] [place], [place] [id number] Result Comment: When assessing risk for acute [...] MACE. Performed By: #### 5 8410-2 #### [facility] CLIA [id number] [address] OF [facility] HIGH SENSITIVITY MEDARDO 33 ng/L High <12 [facility] Comment on above: Order Comment: Crystal bustillo Type: BLOOD SPECIMENOrdering Facility: [facility] Address: [address] [place] [address] Result Comment: When assessing risk for acute [...] MACE. Performed By: #### 9 4500-6 #### [facility] CLIA [id number] [address] [place] HIGH SENSITIVITY MEDARDO 34 ng/L High <12 [facility] Comment on above: Order Comment: Speci men Type: BLOOD SPECIMENOrdering Facility: [facility] Address: [address] [place] [address] Result Comment: When assessing risk for acute [...] day MACE. Performed By: #### H STNT ####[facility] [id number] [address] [place] MRSA Spec Ql Culton 07-22-19 MRSA isol Org specific cx Ql (Unsp spec) CULTURE, MRSA/MSSA SCREEN: Negative for Staphylococcus aureus Normal [facility] Comment on above: Performed By: #### 5 8410-2 #### [facility] CLIA [id number] [address] [place] [address] [place] MRSA isol Org specific cx Ql (Unsp spec) CULTURE, MRSA/MSSA SCREEN: Negative for Staphylococcus aureus Normal [facility] Comment on above: Performed By: #### 1 3317-3 #### [facility] CLIA [id number] [address] [place] [address] [place] Magnesium SerPl-mCncon 07-21 Magnesium [Mass/Vol] 2.0 mg/dL Normal 1.7-2.3 [facility] Comment on above: Order Comment: Speci men Type: BLOOD SPECIMEN [facility] Address: [address] [place] [address] Performed By: #### 5 8410-2 #### [facility] CLIA [id number] [address] NT-proBNP SerPl-ncon 07-21 Natriuretic peptide.B prohormone N-Terminal [Mass/Vol] 872 pg/mL High <125 [facility] Comment on above: Order Comment: Speci men Type: BLOOD SPECIMEN [facility] Address: [address] [place] [address] Performed By: #### 5 8410-2 #### [facility] CLIA [id number] [address] [place] [address] PROCALCITONIN (LAB)on 2021 Procalcitonin [Mass/Vol] 0.15 ng/mL High <0.09 [facility] Comment on above: Order Comment: Speci men Type: BLOOD SPECIMEN [facility] Address: [address] [place] [address] Result Comment: For a guided interpretation of test results, please visit the Change in Procalcitonin Calculator, [email or web address]. Performed By: #### 5 8410-2 #### [facility] CLIA [id number] [address] [place] [address] OF [facility] SARS-CoV-2 RNA Resp Ql JOAN+p robeon 07-21-2021 SARS-CoV-2 (COVID-19) RNA JOAN+probe Ql (Resp) COVID 19 RESULT: SARS-CoV-2 (Agent of COVID-19) Not Detected by RT-PCR or equivalent method. This test has been authorized by FDA under an Emergency Use Authorization (EUA). Normal [facility] Comment on above: Performed By: #### 9 4500-6 #### [facility] CLIA [id number] [address] [place] [address] [place] Basic Metabolic Panelon 01-2 0-2020 Calcium [Mass/Vol] 9.3 mg/dL Normal 8.4-10.4 [facility] Comment on above: Performed By: #### B MP3, MG3, CK3, TROPN #### [facility] [address] [place] [address] Glucose [Mass/Vol] 82 mg/dL Normal 70-100 [facility] Comment on above: Performed By: #### B MP3, MG3, CK3, TROPN #### [facility] [address] [place] [address] Anion gap [Moles/Vol] 9 Normal [facility] Comment on above: Performed By: #### B MP3, MG3, CK3, TROPN #### [facility] [address] [place] [address] CO2 [Moles/Vol] 25 mmol/L Normal 22-30 [facility] Comment on above: Performed By: #### B MP3, MG3, CK3, TROPN #### [facility] [address] [place] [address] Creatinine [Mass/Vol] 1.65 mg/dL High 0.52-1.25 [facility] Comment on above: Performed By: #### B MP3, MG3, CK3, TROPN #### [facility] [address] [place] [address] GFR/1.73 sq M predicted among blacks MDRD (S/P/Bld) [Vol rate/Area] 51.4 mL/min/{1.73_m2} Normal >60 [facility] Comment on above: Performed By: #### B MP3, MG3, CK3, TROPN #### [facility] [address] [place] [address] GFR/1.73 sq M predicted among non-blacks MDRD (S/P/Bld) [Vol rate/Area] 42.4 mL/min/{1.73_m2} Normal >60 [facility] Comment on above: Result Comment: Sour ce- MDRD equation with creatinine calibration to IDMS(NKDEP) eGFR not recommended for drug dose adjustment Performed By: #### B MP3, MG3, CK3, TROPN #### [facility] [address] [place] [address] Urea nitrogen [Mass/Vol] 32 mg/dL High 7-20 [facility] Comment on above: Performed By: #### B MP3, MG3, CK3, TROPN #### [facility] [address] [place] [address] Potassium [Moles/Vol] 5.5 mmol/L High 3.5-5.1 [facility] Comment on above: Performed By: #### B MP3, MG3, CK3, TROPN #### [facility] [address] [place] [address] Chloride [Moles/Vol] 107 mmol/L Normal 98-107 [facility] Comment on above: Performed By: #### B MP3, MG3, CK3, TROPN #### [facility] [address] [place] [address] Sodium [Moles/Vol] 141 mmol/L Normal 135-145 [facility] Comment on above: Performed By: #### B MP3, MG3, CK3, TROPN #### [facility] [address] [place] [address] Basic Metabolic PanelOrdered By: Barry Guadalupe on 05-06-2019 Anion gap [Moles/Vol] 9 mmol/L [facility] Work Phone: [phone] Calcium [Mass/Vol] 9.3 mg/dL 8.4 - 10. 4 mg/dL [facility] Work Phone: [phone] Chloride [Moles/Vol] 107 mmol/L 98 - 10 7 mmol/L [facility] Work Phone: [phone] CO2 [Moles/Vol] 25 mmol/L 22 - 30 mmol/L [facility] Work Phone: [phone] Creatinine [Mass/Vol] 1.65 mg/dL High 0.52 - 1.25 mg/dL [facility] Work Phone: [phone] NonAfrican South African 42.4 mL/min >60 [facility] Work Phone: [phone] Comment on above: Source- MDRD equatio n with creatinine calibration to IDMS(NKDEP) eGFR not recommended for drug dose adjustment GFR/1.73 sq M.predicted among blacks MDRD (S/P/Bld) [Vol rate/Area] 51.4 mL/min/{1.73_m2} >60 [facility] Work Phone: [phone] Glucose [Mass/Vol] 82 mg/dL 70 - 100 mg/dL [facility] Work Phone: [phone] Interpretation and review of laboratory results Abnormal [facility] Work Phone: [phone] Potassium [Moles/Vol] 5.5 mmol/L High 3.5 - 5.1 mmol/L [facility] Work Phone: [phone] Sodium [Moles/Vol] 141 mmol/L 135 - 145 mmol/L [facility] Work Phone: [phone] Urea nitrogen [Mass/Vol] 32 mg/dL High 7 - 20 mg/dL [facility] Work Phone: CKon 05-06-2019 CK [Catalytic activity/Vol] 49 U/L Normal 30-170 [facility] Comment on above: Performed By: #### B MP3, MG3, CK3, TROPN #### [facility] [address] [place] [address] CKOrdered By: Barry mueller n 05-06-2019 CK [Catalytic activity/Vol] 49 U/L 30 - 170 U/L [facility] Work Phone: Magnesiumon 05-06-2019 Magnesium [Mass/Vol] 2.3 mg/dL Normal 1.6-2.3 [facility] Comment on above: Performed By: #### B MP3, MG3, CK3, TROPN #### [facility] [address] [place] [address] MagnesiumOrdered By: Barry Guadalupe on 05-06-2019 Magnesium [Mass/Vol] 2.3 mg/dL 1.6 - 2 .3 mg/dL [facility] Work Phone: No Panel InformationOrdered By: Barry Guadalupe on 05-06-2019 Test Performed by [facility], [address] , [place] [address] [employer] Work Phone: Troponin Ion 05-06-2019 Troponin I.cardiac [Mass/Vol] ng/mL Normal 0.000-0.034 [facility] Comment on above: Result Comment: . Performed By: #### B MP3, MG3, CK3, TROPN #### [facility] [address] [place] [address] Troponin [id number] By: Yusra Guadalupe on 05-06-2019 Troponin I.cardiac [Mass/Vol] ng/mL 0 - 0.034 ng/mL [employer] Work Phone: Comment on above: . Test Performed by [facility], [address] , [place] [address] [employer] Work Phone: CR Knee 1 or 2 Views Bilater yolanda 05-01-2019 CR Knee 1 or 2 Views Bilateral Patient Name: JAMES REYES Diagnostic Radiology Exam Date/Time 05/01/2019 14:40:00 EST Exam CR Knee 1 or 2 Views Bilateral Ordering Physician MD JOELLE, HAYDEE Accession Number [id number] CPT4 Codes 50198 () Reason For Exam bilateral knee pain [...] Transcribed Date and Time: 05/01/2019 3:52 Normal [facility] CR Knee Standing Bilateralon 05-01-2019 CR Knee Standing Bilateral Patient Name: JAMES REYES Diagnostic Radiology Exam Date/Time 05/01/2019 14:50:00 EST Exam CR Knee Standing AP Bilateral Ordering Physician MD LAI RYAN Accession Number [id number] CPT4 Codes 44202 () Reason For Exam bilateral knee pain [...] Transcribed Date and Time: 05/01/2019 3:52 Normal [facility] XR KNEE BILATERAL LIMITEDOrd ered By: Haydee Lai on 05-01-2019 Patient Name: JAMES REYES ---Diagnostic Radiology--- Exam Date/Time 05/01/2019 14:40:00 EST Exam CR Knee 1 or 2 Views Bilateral Ordering Physician MD LAI RYAN Accession Number [id number] CPT4 Codes 47166 () Reason For Exam bilateral knee pain [...] Phone: Joe, [facility] Results From [facility] - 05/01/2019 3:52 PM EST Patient Name: JAMES REYES ---Diagnostic Radiology--- Exam Date/Time 05/01/2019 14:40:00 EST Exam CR Knee 1 or 2 Views Bilateral Ordering Physician MD LAI RYAN Accession Number [id number] CPT4 Codes 68573 () Reason For Exam bilateral knee pain [...] Ordering Physician MD LAI RYAN Accession Number [id number] CPT4 Codes 17408 () Reason For Exam bilateral knee pain [...] Phone: Joe, [facility]iology Results From [facility] - 05/01/2019 3:52 PM EST Patient Name: JAMES REYES ---Diagnostic Radiology--- Exam Date/Time 05/01/2019 14:50:00 EST Exam CR Knee Standing AP Bilateral Ordering Physician MD LAI RYAN Accession Number [id number] CPT4 Codes 12149 () Reason For Exam bilateral knee pain [...] Physician MD KOMAL, MELQUIADES Schmitz Accession Number [id number] CPT4 Codes 80267 () Reason For Exam right shoulder pain [...] Transcribed Date and Time: 09/06/2018 4:20 Normal [facility] CULTURE ANAEROBEon 8 CULTURE ANAEROBE CULTURE ANAEROBE --> Status: F No growth of anaerobes at 5 days. Normal [facility] Comment on above: Performed By: #### M G3, BMP3 ####The performing lab is in the report. CULT./ST. BACTERIAon 018 CULT./ST. BACTERIA CULT./ST. BACTERIA - -> Status: F Mixed skin tayler present. STAIN GRAM --> Status: F Few polymorphonuclear cells/lpf. No organisms seen. No organisms seen. Normal [facility] Comment on above: Performed By: #### M G3, BMP3 ####The performing lab is in the report. CULTURE MYCOBACTERIA Conc.on 11-28-2017 CULTURE MYCOBACTERIA Conc. CULTURE MYCOBACTERIA Conc. --> Status: F Test performed at [facility] Microbiology Lab No acid-fast bacilli isolated after 6 weeks incubation. No acid-fast bacilli isolated after 6 weeks incubation. Normal [facility] Comment on above: Order Comment: or co llected Performed By: #### H EMDF, APTT, HA1C2 ####The performing lab is in the report. CULTURE FUNGUSon 11-06-2017 CULTURE FUNGUS CULTURE FUNGUS --> Status: F No fungus isolated after 21 days. [facility] Comment on above: Order Comment: or co llected Performed By: #### H EMDF, APTT, HA1C2 ####The performing lab is in the report. Basic Metabolic Panelon 10-16 Anion gap 3 molar conc 7 Normal [facility] Comment on above: Performed By: #### M G3, BMP3 ####The performing lab is in the report. Calcium mass conc 8.2 mg/dL Low 8.4-10.4 [facility] Comment on above: Performed By: #### M G3, BMP3 ####The performing lab is in the report. CO2 molar conc 29 mmol/L Normal 22-[address] [facility] Comment on above: Performed By: #### M G3, BMP3 ####The performing lab is in the report. Glucose mass conc 174 mg/dL High 70-100 [facility] Comment on above: Performed By: #### M G3, BMP3 ####The performing lab is in the report. Urea nitrogen mass conc 12 mg/dL Normal 7-20 [facility] Comment on above: Performed By: #### M G3, BMP3 ####The performing lab is in the report. Creatinine mass conc 0.74 mg/dL Normal 0.52-1.25 [facility] Comment on above: Performed By: #### M G3, BMP3 ####The performing lab is in the report. GFR/1.73 sq M predicted among blacks MDRD vol rate/area (S/P/Bld) mL/min/{1.73_m2} Normal >60 [facility] Comment on above: Performed By: #### Ap G3, BMP3 ####The performing lab is in the report. GFR/1.73 sq M predicted among non-blacks MDRD vol rate/area (S/P/Bld) mL/min/{1.73_m2} Normal >60 [facility] Comment on above: Result Comment: Sour ce- MDRD equation with creatinine calibration to IDMS(NKDEP) eGFR not recommended for drug dose adjustment Performed By: #### pA G3, BMP3 ####The performing lab is in the report. Potassium molar conc 3.5 mmol/L Normal 3.5-5.1 [facility] Comment on above: Performed By: #### Ap G3, BMP3 ####The performing lab is in the report. Chloride molar conc 105 mmol/L Normal 98-107 [facility] Comment on above: Performed By: #### Ap G3, BMP3 ####The performing lab is in the report. Sodium molar conc 141 mmol/L Normal 137-145 [facility] Comment on above: Performed By: #### Ap G3, BMP3 ####The performing lab is in the report. Hemogram w/ Autodiffon 11-03 Abs Baso Cnt 0.0 10*3/uL Normal 0.0-0.2 [facility] Comment on above: Performed By: #### Ap G3, BMP3 ####The performing lab is in the report. Abs Neutrophile Cnt 2.8 10*3/uL Normal 1.8-7.0 [facility] Comment on above: Performed By: #### Ap G3, BMP3 ####The performing lab is in the report. Basophils/100 WBC Auto (Bld) 1.0 % Normal 0.0-2.0 [facility] Comment on above: Performed By: #### Ap G3, BMP3 ####The performing lab is in the report. Eosinophils Auto #/vol (Bld) 0.4 10*3/uL Normal 0.0-0.5 [facility] Comment on above: Performed By: #### Ap G3, BMP3 ####The performing lab is in the report. Eosinophils/100 WBC Auto (Bld) 8.0 % High 1.0-6.0 [facility] Comment on above: Performed By: #### Ap G3, BMP3 ####The performing lab is in the report. Erythrocyte distribution width Auto Ratio (RBC) 16.9 % High 11.5-14.5 [facility] Comment on above: Performed By: #### Ap G3, BMP3 ####The performing lab is in the report. Granulocytes/100 WBC (Bld) 64.3 % Normal 40.0-80.0 [facility] Comment on above: Performed By: #### Ap G3, BMP3 ####The performing lab is in the report. Hematocrit Auto Volume Fraction (Bld) 22.5 % Low 40.0-52.0 [facility] Comment on above: Performed By: #### Ap G3, BMP3 ####The performing lab is in the report. Hemoglobin mass conc (Bld) 7.4 g/dL Low 13.0-18.0 [facility] Comment on above: Performed By: #### Ap G3, BMP3 ####The performing lab is in the report. Lymphocytes Auto #/vol (Bld) 0.7 10*3/uL Low 1.0-4.3 [facility] Comment on above: Performed By: #### Ap G3, BMP3 ####The performing lab is in the report. Lymphocytes/100 WBC Auto (Bld) 15.6 % Low 20.0-40.0 [facility] Comment on above: Performed By: #### Ap G3, BMP3 ####The performing lab is in the report. MCH Auto Entitic mass (RBC) 28.0 pg Normal 26.0-34.0 [facility] Comment on above: Performed By: #### Ap G3, BMP3 ####The performing lab is in the report. MCHC Auto mass conc (RBC) 33.1 % Normal 32.0-36.0 [facility] Comment on above: Performed By: #### Ap G3, BMP3 ####The performing lab is in the report. MCV Auto Entitic volume (RBC) 84.8 fL Normal 80.0-98.0 [facility] Comment on above: Performed By: #### Ap G3, BMP3 ####The performing lab is in the report. Monocytes Auto #/vol (Bld) 0.5 10*3/uL Normal 0.0-0.8 [facility] Comment on above: Performed By: #### Ap G3, BMP3 ####The performing lab is in the report. Monocytes/100 WBC Auto (Bld) 11.1 % High 2.0-10.0 [facility] Comment on above: Performed By: #### Ap G3, BMP3 ####The performing lab is in the report. Platelet mean volume Auto Entitic volume (Bld) 8.2 fL Normal 7.4-10.4 [facility] Comment on above: Performed By: #### Ap G3, BMP3 ####The performing lab is in the report. Platelets Auto #/vol (Bld) 287 10*3/uL Normal 140-440 [facility] Comment on above: Performed By: #### Ap G3, BMP3 ####The performing lab is in the report. RBC Auto #/vol (Bld) 2.65 10*6/uL Low 4.40-5.90 [facility] Comment on above: Performed By: #### Ap G3, BMP3 ####The performing lab is in the report. WBC Auto #/vol (Bld) 4.4 10*3/uL Normal 3.6-10.7 [facility] Comment on above: Performed By: #### Ap G3, BMP3 ####The performing lab is in the report. Prothrombin Timeon 8 INR Coag RelTime (PPP) 1.0 Normal 0.9-1.1 [facility] Comment on above: Result Comment: Lux [...] Coag time (PPP) 10.7 s Normal 9.0-12.0 [facility] Comment on above: Result Comment: . Performed By: #### Ap G3, BMP3 ####The performing lab is in the report. TS GELon 11-03-2017 TS GEL ABO Group: A Rh, Gel: POS Antibody Screen Gel: NEG Normal [facility] Comment on above: Performed By: #### Ap G3, BMP3 ####The performing lab is in the report. Basic Metabolic Panelon 10-15 Anion gap 3 molar conc 6 Normal [facility] Comment on above: Performed By: #### Ap G3, BMP3 ####The performing lab is in the report. Calcium mass conc 8.9 mg/dL Normal 8.4-10.4 [facility] Comment on above: Performed By: #### Ap G3, BMP3 ####The performing lab is in the report. CO2 molar conc 30 mmol/L Normal 22-30 [facility] Comment on above: Performed By: #### Ap G3, BMP3 ####The performing lab is in the report. Glucose mass conc 101 mg/dL High 70-100 [facility] Comment on above: Performed By: #### Ap G3, BMP3 ####The performing lab is in the report. Urea nitrogen mass conc 8 mg/dL Normal 7-20 [facility] Comment on above: Performed By: #### Ap G3, BMP3 ####The performing lab is in the report. Creatinine mass conc 0.62 mg/dL Normal 0.52-1.25 [facility] Comment on above: Performed By: #### Ap G3, BMP3 ####The performing lab is in the report. GFR/1.73 sq M predicted among blacks MDRD vol rate/area (S/P/Bld) mL/min/{1.73_m2} Normal >60 [facility] Comment on above: Performed By: #### Ap G3, BMP3 ####The performing lab is in the report. GFR/1.73 sq M predicted among non-blacks MDRD vol rate/area (S/P/Bld) mL/min/{1.73_m2} Normal >60 [facility] Comment on above: Result Comment: Sour ce- MDRD equation with creatinine calibration to IDMS(NKDEP) eGFR not recommended for drug dose adjustment Performed By: #### Ap G3, BMP3 ####The performing lab is in the report. Potassium molar conc 2.9 mmol/L Low 3.5-5.1 [facility] Comment on above: Performed By: #### Ap G3, BMP3 ####The performing lab is in the report. Chloride molar conc 100 mmol/L Normal 98-107 [facility] Comment on above: Performed By: #### Ap G3, BMP3 ####The performing lab is in the report. Sodium molar conc 137 mmol/L Normal 137-145 [facility] Comment on above: Performed By: #### Ap G3, BMP3 ####The performing lab is in the report. Glucose,Bedsideon 10-30-2017 Glucose mass conc 131 mg/dL High 70-100 [facility] Comment on above: Result Comment: Test performed by glucose meter. Results may be 10%-15% lowerthan serum/plasma values. (CLIA ID [id number]) Performed By: #### Ap G3, BMP3 ####The performing lab is in the report. Glucose mass conc 163 mg/dL High 70-100 [facility] Comment on above: Result Comment: Test performed by glucose meter. Results may be 10%-15% lowerthan serum/plasma values. (CLIA ID [id number]) Performed By: #### M G3, BMP3 ####The performing lab is in the report. Hemogram w/ Autodiffon 10-30 Abs Baso Cnt 0.0 10*3/uL Normal 0.0-0.2 [facility] Comment on above: Performed By: #### M G3, BMP3 ####The performing lab is in the report. Abs Neutrophile Cnt 2.1 10*3/uL Normal 1.8-7.0 [facility] [employer] Comment on above: Performed By: #### Ap G3, BMP3 ####The performing lab is in the report. Basophils/100 WBC Auto (Bld) 0.8 % Normal 0.0-2.0 [facility] Comment on above: Performed By: #### Ap G3, BMP3 ####The performing lab is in the report. Eosinophils Auto #/vol (Bld) 0.3 10*3/uL Normal 0.0-0.5 [facility] Comment on above: Performed By: #### Ap G3, BMP3 ####The performing lab is in the report. Eosinophils/100 WBC Auto (Bld) 8.5 % High 1.0-6.0 [facility] Comment on above: Performed By: #### Ap G3, BMP3 ####The performing lab is in the report. Erythrocyte distribution width Auto Ratio (RBC) 16.6 % High 11.5-14.5 [facility] Comment on above: Performed By: #### M G3, BMP3 ####The performing lab is in the report. Granulocytes/100 WBC (Bld) 60.6 % Normal 40.0-80.0 [facility] Comment on above: Performed By: #### Ap G3, BMP3 ####The performing lab is in the report. Hematocrit Auto Volume Fraction (Bld) 23.9 % Low 40.0-52.0 [facility] Comment on above: Performed By: #### M G3, BMP3 ####The performing lab is in the report. Hemoglobin mass conc (Bld) 8.0 g/dL Low 13.0-18.0 [facility] Comment on above: Performed By: #### M G3, BMP3 ####The performing lab is in the report. Lymphocytes Auto #/vol (Bld) 0.6 10*3/uL Low 1.0-4.3 [facility] Comment on above: Performed By: #### M G3, BMP3 ####The performing lab is in the report. Lymphocytes/100 WBC Auto (Bld) 17.4 % Low 20.0-40.0 [facility] Comment on above: Performed By: #### M G3, BMP3 ####The performing lab is in the report. MCH Auto Entitic mass (RBC) 27.7 pg Normal 26.0-34.0 [facility] Comment on above: Performed By: #### Ap G3, BMP3 ####The performing lab is in the report. MCHC Auto mass conc (RBC) 33.3 % Normal 32.0-36.0 [facility] Comment on above: Performed By: #### Ap G3, BMP3 ####The performing lab is in the report. MCV Auto Entitic volume (RBC) 83.4 fL Normal 80.0-98.0 [facility] Comment on above: Performed By: #### Ap G3, BMP3 ####The performing lab is in the report. Monocytes Auto #/vol (Bld) 0.4 10*3/uL Normal 0.0-0.8 [facility] Comment on above: Performed By: #### Ap G3, BMP3 ####The performing lab is in the report. Monocytes/100 WBC Auto (Bld) 12.7 % High 2.0-10.0 [facility] Comment on above: Performed By: #### M G3, BMP3 ####The performing lab is in the report. Platelet mean volume Auto Entitic volume (Bld) 8.2 fL Normal 7.4-10.4 [facility] Comment on above: Performed By: ###Jose De Souza G3, BMP3 ####The performing lab is in the report. Platelets Auto #/vol (Bld) 266 10*3/uL Normal 140-440 [facility] Comment on above: Performed By: #### Ap G3, BMP3 ####The performing lab is in the report. RBC Auto #/vol (Bld) 2.87 10*6/uL Low 4.40-5.90 [facility] Comment on above: Performed By: #### Ap Sanchez, BMP3 ####The performing lab is in the report. WBC Auto #/vol (Bld) 3.5 10*3/uL Low 3.6-10.7 [facility] Comment on above: Performed By: ###Jose Sanchze, BMP3 ####The performing lab is in the report. Magnesiumon 10-30-2017 Magnesium mass conc 1.6 mg/dL Normal 1.6-2.3 [facility] Comment on above: Performed By: ###Jose Sanchez, BMP3 ####The performing lab is in the report. Phosphoruson 10-30-2017 Phosphate mass conc 3.1 mg/dL Normal 2.5-4.5 [facility] Comment on above: Performed By: ###Jose Sanchez, BMP3 ####The performing lab is in the report. Basic Metabolic Panelon 10-15 Anion gap 3 molar conc 6 Normal [facility] Comment on above: Performed By: ###Jose Sanchez, BMP3 ####The performing lab is in the report. Calcium mass conc 8.8 mg/dL Normal 8.4-10.4 [facility] Comment on above: Performed By: ###Jose De Souza G3, BMP3 ####The performing lab is in the report. CO2 molar conc 30 mmol/L Normal 22-[address] [facility] Comment on above: Performed By: #### Ap Sanchez, BMP3 ####The performing lab is in the report. Creatinine mass conc 0.65 mg/dL Normal 0.52-1.25 [facility] Comment on above: Performed By: ###Jose Sanchez, BMP3 ####The performing lab is in the report. GFR/1.73 sq M predicted among blacks MDRD vol rate/area (S/P/Bld) mL/min/{1.73_m2} Normal >60 [facility] Comment on above: Performed By: #### M G3, BMP3 ####The performing lab is in the report. GFR/1.73 sq M predicted among non-blacks MDRD vol rate/area (S/P/Bld) mL/min/{1.73_m2} Normal >60 [facility] Comment on above: Result Comment: Sour ce- MDRD equation with creatinine calibration to IDMS(NKDEP) eGFR not recommended for drug dose adjustment Performed By: #### M G3, BMP3 ####The performing lab is in the report. Glucose mass conc 100 mg/dL Normal 70-100 [facility] Comment on above: Performed By: #### M G3, BMP3 ####The performing lab is in the report. Urea nitrogen mass conc 9 mg/dL Normal 7-20 [facility] Comment on above: Performed By: #### M G3, BMP3 ####The performing lab is in the report. Potassium molar conc 3.0 mmol/L Low 3.5-5.1 [facility] Comment on above: Performed By: #### M G3, BMP3 ####The performing lab is in the report. Sodium molar conc 135 mmol/L Low 137-145 [facility] Comment on above: Performed By: #### M G3, BMP3 ####The performing lab is in the report. Chloride molar conc 99 mmol/L Normal 98-107 [facility] Comment on above: Performed By: #### M G3, BMP3 ####The performing lab is in the report. CULTURE ANAEROBEon 8 CULTURE ANAEROBE CULTURE ANAEROBE --> Status: F No growth of anaerobes at 5 days. Normal [facility] Comment on above: Order Comment: ORor Performed By: #### M G3, BMP3 ####The performing lab is in the report. Glucose,Bedsideon 10-29-2017 Glucose mass conc 124 mg/dL High 70-100 [facility] Comment on above: Result Comment: Test performed by glucose meter. Results may be 10%-15% lowerthan serum/plasma values. (CLIA ID [id number]) Performed By: #### Ap G3, BMP3 ####The performing lab is in the report. Glucose mass conc 208 mg/dL High 70-100 [facility] Comment on above: Result Comment: Test performed by glucose meter. Results may be 10%-15% lowerthan serum/plasma values. (CLIA ID [id number]) Performed By: #### M G3, BMP3 ####The performing lab is in the report. Glucose mass conc 139 mg/dL High 70-100 [facility] Comment on above: Result Comment: Test performed by glucose meter. Results may be 10%-15% lowerthan serum/plasma values. (CLIA ID [id number]) Performed By: #### Ap G3, BMP3 ####The performing lab is in the report. Hemogram w/ Autodiffon 10-29 Abs Baso Cnt 0.0 10*3/uL Normal 0.0-0.2 [facility] Comment on above: Performed By: #### Ap G3, BMP3 ####The performing lab is in the report. Abs Neutrophile Cnt 2.4 10*3/uL Normal 1.8-7.0 [facility] [employer] Comment on above: Performed By: #### Ap G3, BMP3 ####The performing lab is in the report. Basophils/100 WBC Auto (Bld) 0.7 % Normal 0.0-2.0 [facility] Comment on above: Performed By: #### M G3, BMP3 ####The performing lab is in the report. Eosinophils Auto #/vol (Bld) 0.2 10*3/uL Normal 0.0-0.5 [facility] Comment on above: Performed By: #### Ap G3, BMP3 ####The performing lab is in the report. Eosinophils/100 WBC Auto (Bld) 6.1 % High 1.0-6.0 [facility] Comment on above: Performed By: #### Ap G3, BMP3 ####The performing lab is in the report. Erythrocyte distribution width Auto Ratio (RBC) 16.4 % High 11.5-14.5 [facility] Comment on above: Performed By: #### M G3, BMP3 ####The performing lab is in the report. Granulocytes/100 WBC (Bld) 65.0 % Normal 40.0-80.0 [facility] Comment on above: Performed By: #### Ap G3, BMP3 ####The performing lab is in the report. Hematocrit Auto Volume Fraction (Bld) 22.2 % Low 40.0-52.0 [facility] Comment on above: Performed By: #### M G3, BMP3 ####The performing lab is in the report. Hemoglobin mass conc (Bld) 7.3 g/dL Low 13.0-18.0 [facility] Comment on above: Performed By: #### Ap G3, BMP3 ####The performing lab is in the report. Lymphocytes Auto #/vol (Bld) 0.6 10*3/uL Low 1.0-4.3 [facility] Comment on above: Performed By: #### Ap G3, BMP3 ####The performing lab is in the report. Lymphocytes/100 WBC Auto (Bld) 16.6 % Low 20.0-40.0 [facility] Comment on above: Performed By: #### M G3, BMP3 ####The performing lab is in the report. MCH Auto Entitic mass (RBC) 27.6 pg Normal 26.0-34.0 [facility] Comment on above: Performed By: #### Ap G3, BMP3 ####The performing lab is in the report. MCHC Auto mass conc (RBC) 33.1 % Normal 32.0-36.0 [facility] Comment on above: Performed By: #### Ap G3, BMP3 ####The performing lab is in the report. MCV Auto Entitic volume (RBC) 83.4 fL Normal 80.0-98.0 [facility] Comment on above: Performed By: #### M G3, BMP3 ####The performing lab is in the report. Monocytes Auto #/vol (Bld) 0.4 10*3/uL Normal 0.0-0.8 [facility] Comment on above: Performed By: #### Ap G3, BMP3 ####The performing lab is in the report. Monocytes/100 WBC Auto (Bld) 11.6 % High 2.0-10.0 [facility] Comment on above: Performed By: #### Ap G3, BMP3 ####The performing lab is in the report. Platelet mean volume Auto Entitic volume (Bld) 8.3 fL Normal 7.4-10.4 [facility] Comment on above: Performed By: #### Ap G3, BMP3 ####The performing lab is in the report. Platelets Auto #/vol (Bld) 251 10*3/uL Normal 140-440 [facility] Comment on above: Performed By: #### Ap G3, BMP3 ####The performing lab is in the report. RBC Auto #/vol (Bld) 2.66 10*6/uL Low 4.40-5.90 [facility] Comment on above: Performed By: #### Ap Sanchez, BMP3 ####The performing lab is in the report. WBC Auto #/vol (Bld) 3.7 10*3/uL Normal 3.6-10.7 [facility] Comment on above: Performed By: #### Ap Sanchez, BMP3 ####The performing lab is in the report. Magnesiumon 10-29-2017 Magnesium mass conc 1.6 mg/dL Normal 1.6-2.3 [facility] Comment on above: Performed By: #### Ap Sanchez, BMP3 ####The performing lab is in the report. Phosphoruson 10-29-2017 Phosphate mass conc 2.8 mg/dL Normal 2.5-4.5 [facility] Comment on above: Performed By: #### Ap G3, BMP3 ####The performing lab is in the report. Basic Metabolic Panelon 10-15 Calcium mass conc 8.9 mg/dL Normal 8.4-10.4 [facility] Comment on above: Performed By: #### Ap G3, BMP3 ####The performing lab is in the report. Anion gap 3 molar conc 6 Normal [facility] Comment on above: Performed By: #### Ap G3, BMP3 ####The performing lab is in the report. CO2 molar conc 31 mmol/L High 22-[address] [facility] Comment on above: Performed By: #### Ap G3, BMP3 ####The performing lab is in the report. Creatinine mass conc 0.66 mg/dL Normal 0.52-1.25 [facility] Comment on above: Performed By: #### Ap G3, BMP3 ####The performing lab is in the report. GFR/1.73 sq M predicted among blacks MDRD vol rate/area (S/P/Bld) mL/min/{1.73_m2} Normal >60 [facility] Comment on above: Performed By: #### Ap G3, BMP3 ####The performing lab is in the report. GFR/1.73 sq M predicted among non-blacks MDRD vol rate/area (S/P/Bld) mL/min/{1.73_m2} Normal >60 [facility] Comment on above: Result Comment: Sour ce- MDRD equation with creatinine calibration to IDMS(NKDEP) eGFR not recommended for drug dose adjustment Performed By: #### Ap G3, BMP3 ####The performing lab is in the report. Glucose mass conc 105 mg/dL High 70-100 [facility] Comment on above: Performed By: #### Ap G3, BMP3 ####The performing lab is in the report. Urea nitrogen mass conc 11 mg/dL Normal 7-20 [facility] Comment on above: Performed By: #### Ap G3, BMP3 ####The performing lab is in the report. Chloride molar conc 101 mmol/L Normal 98-107 [facility] Comment on above: Performed By: #### Ap G3, BMP3 ####The performing lab is in the report. Potassium molar conc 3.4 mmol/L Low 3.5-5.1 [facility] Comment on above: Performed By: #### Ap G3, BMP3 ####The performing lab is in the report. Sodium molar conc 137 mmol/L Normal 137-145 [facility] Comment on above: Performed By: #### M G3, BMP3 ####The performing lab is in the report. Glucose,Bedsideon 10-28-2017 Glucose mass conc 135 mg/dL High 70-100 [facility] Comment on above: Result Comment: Test performed by glucose meter. Results may be 10%-15% lowerthan serum/plasma values. (CLIA ID [id number]) Performed By: #### M G3, BMP3 ####The performing lab is in the report. Glucose mass conc 145 mg/dL High 70-100 [facility] Comment on above: Result Comment: Test performed by glucose meter. Results may be 10%-15% lowerthan serum/plasma values. (CLIA ID [id number]) Performed By: #### M G3, BMP3 ####The performing lab is in the report. Glucose mass conc 133 mg/dL High 70-100 [facility] Comment on above: Result Comment: Test performed by glucose meter. Results may be 10%-15% lowerthan serum/plasma values. (CLIA ID [id number]) Performed By: #### M G3, BMP3 ####The performing lab is in the report. Glucose mass conc 149 mg/dL High 70-100 [facility] Comment on above: Result Comment: Test performed by glucose meter. Results may be 10%-15% lowerthan serum/plasma values. (CLIA ID [id number]) Performed By: #### M G3, BMP3 ####The performing lab is in the report. Hemogram w/ Autodiffon 10-28 Abs Baso Cnt 0.0 10*3/uL Normal 0.0-0.2 [facility] Comment on above: Performed By: #### M G3, BMP3 ####The performing lab is in the report. Abs Neutrophile Cnt 2.5 10*3/uL Normal 1.8-7.0 [facility] Comment on above: Performed By: #### M G3, BMP3 ####The performing lab is in the report. Basophils/100 WBC Auto (Bld) 0.7 % Normal 0.0-2.0 [facility] Comment on above: Performed By: #### Ap G3, BMP3 ####The performing lab is in the report. Eosinophils Auto #/vol (Bld) 0.2 10*3/uL Normal 0.0-0.5 [facility] Comment on above: Performed By: #### Ap G3, BMP3 ####The performing lab is in the report. Eosinophils/100 WBC Auto (Bld) 5.5 % Normal 1.0-6.0 [facility] Comment on above: Performed By: #### Ap G3, BMP3 ####The performing lab is in the report. Erythrocyte distribution width Auto Ratio (RBC) 16.1 % High 11.5-14.5 [facility] Comment on above: Performed By: #### Ap G3, BMP3 ####The performing lab is in the report. Granulocytes/100 WBC (Bld) 66.5 % Normal 40.0-80.0 [facility] Comment on above: Performed By: #### Ap G3, BMP3 ####The performing lab is in the report. Hematocrit Auto Volume Fraction (Bld) 21.9 % Low 40.0-52.0 [facility] Comment on above: Performed By: #### Ap G3, BMP3 ####The performing lab is in the report. Hemoglobin mass conc (Bld) 7.3 g/dL Low 13.0-18.0 [facility] Comment on above: Performed By: #### Ap G3, BMP3 ####The performing lab is in the report. Lymphocytes Auto #/vol (Bld) 0.6 10*3/uL Low 1.0-4.3 [facility] Comment on above: Performed By: #### Ap G3, BMP3 ####The performing lab is in the report. Lymphocytes/100 WBC Auto (Bld) 16.2 % Low 20.0-40.0 [facility] Comment on above: Performed By: #### Ap G3, BMP3 ####The performing lab is in the report. MCH Auto Entitic mass (RBC) 28.1 pg Normal 26.0-34.0 [facility] Comment on above: Performed By: #### Ap G3, BMP3 ####The performing lab is in the report. MCHC Auto mass conc (RBC) 33.2 % Normal 32.0-36.0 [facility] Comment on above: Performed By: ###Jose Sanchez, BMP3 ####The performing lab is in the report. MCV Auto Entitic volume (RBC) 84.7 fL Normal 80.0-98.0 [facility] Comment on above: Performed By: ###Jose Sanchez, BMP3 ####The performing lab is in the report. Monocytes Auto #/vol (Bld) 0.4 10*3/uL Normal 0.0-0.8 [facility] Comment on above: Performed By: ###Jose Sanchez, BMP3 ####The performing lab is in the report. Monocytes/100 WBC Auto (Bld) 11.1 % High 2.0-10.0 [facility] Comment on above: Performed By: ###Jose Sanchez, BMP3 ####The performing lab is in the report. Platelet mean volume Auto Entitic volume (Bld) 8.9 fL Normal 7.4-10.4 [facility] Comment on above: Performed By: #### Ap Sanchez, BMP3 ####The performing lab is in the report. Platelets Auto #/vol (Bld) 226 10*3/uL Normal 140-440 [facility] Comment on above: Performed By: #### Ap Sanchez, BMP3 ####The performing lab is in the report. RBC Auto #/vol (Bld) 2.59 10*6/uL Low 4.40-5.90 [facility] Comment on above: Performed By: #### Ap Sanchez, BMP3 ####The performing lab is in the report. WBC Auto #/vol (Bld) 3.8 10*3/uL Normal 3.6-10.7 [facility] Comment on above: Performed By: ###Jose Sanchez, BMP3 ####The performing lab is in the report. Magnesiumon 10-28-2017 Magnesium mass conc 1.6 mg/dL Normal 1.6-2.3 [facility] Comment on above: Performed By: ###Jose Sanchez, BMP3 ####The performing lab is in the report. Phosphoruson 10-28-2017 Phosphate mass conc 2.8 mg/dL Normal 2.5-4.5 [facility] Comment on above: Performed By: #### Ap G3, BMP3 ####The performing lab is in the report. Basic Metabolic Panelon 10-15 Calcium mass conc 9.0 mg/dL Normal 8.4-10.4 [facility] Comment on above: Performed By: #### Ap G3, BMP3 ####The performing lab is in the report. Anion gap 3 molar conc 4 Normal [facility] Comment on above: Performed By: #### M G3, BMP3 ####The performing lab is in the report. CO2 molar conc 30 mmol/L Normal 22-[address] [facility] Comment on above: Performed By: #### Ap G3, BMP3 ####The performing lab is in the report. Creatinine mass conc 0.68 mg/dL Normal 0.52-1.25 [facility] Comment on above: Performed By: #### Ap G3, BMP3 ####The performing lab is in the report. GFR/1.73 sq M predicted among blacks MDRD vol rate/area (S/P/Bld) mL/min/{1.73_m2} Normal >60 [facility] Comment on above: Performed By: #### Ap G3, BMP3 ####The performing lab is in the report. GFR/1.73 sq M predicted among non-blacks MDRD vol rate/area (S/P/Bld) mL/min/{1.73_m2} Normal >60 [facility] Comment on above: Result Comment: Sour ce- MDRD equation with creatinine calibration to IDMS(NKDEP) eGFR not recommended for drug dose adjustment Performed By: #### M G3, BMP3 ####The performing lab is in the report. Glucose mass conc 121 mg/dL High 70-100 [facility] Comment on above: Performed By: #### M G3, BMP3 ####The performing lab is in the report. Urea nitrogen mass conc 17 mg/dL Normal 7-20 [facility] Comment on above: Performed By: #### Ap G3, DAPHNE3 ####The performing lab is in the report. Chloride molar conc 102 mmol/L Normal 98-107 [facility] Comment on above: Performed By: #### Ap G3, BMP3 ####The performing lab is in the report. Potassium molar conc 3.8 mmol/L Normal 3.5-5.1 [facility] Comment on above: Performed By: #### Ap G3, BMP3 ####The performing lab is in the report. Sodium molar conc 136 mmol/L Low 137-145 [facility] Comment on above: Performed By: [...] 1 S Pip/Tazobactam(MARTITA) = 8 S Normal [facility] Comment on above: Order Comment: ORor Performed By: #### Ap G3, BMP3 ####The performing lab is in the report. Glucose,Bedsideon 10-27-2017 Glucose mass conc 122 mg/dL High 70-100 [facility] Comment on above: Result Comment: Test performed by glucose meter. Results may be 10%-15% lowerthan serum/plasma values. (CLIA ID [id number]) Performed By: #### M G3, BMP3 ####The performing lab is in the report. Glucose mass conc 119 mg/dL High 70-100 [facility] Comment on above: Result Comment: Test performed by glucose meter. Results may be 10%-15% lowerthan serum/plasma values. (CLIA ID [id number]) Performed By: #### M G3, BMP3 ####The performing lab is in the report. Glucose mass conc 149 mg/dL High 70-100 [facility] Comment on above: Result Comment: Test performed by glucose meter. Results may be 10%-15% lowerthan serum/plasma values. (CLIA ID [id number]) Performed By: #### M G3, BMP3 ####The performing lab is in the report. Glucose mass conc 171 mg/dL High 70-100 [facility] Comment on above: Result Comment: Test performed by glucose meter. Results may be 10%-15% lowerthan serum/plasma values. (CLIA ID [id number]) Performed By: #### M G3, BMP3 ####The performing lab is in the report. Hemogram w/ Autodiffon 10-27 Abs Baso Cnt 0.0 10*3/uL Normal 0.0-0.2 [facility] Comment on above: Performed By: #### M G3, BMP3 ####The performing lab is in the report. Abs Neutrophile Cnt 3.1 10*3/uL Normal 1.8-7.0 [facility] [employer] Comment on above: Performed By: #### M G3, BMP3 ####The performing lab is in the report. Basophils/100 WBC Auto (Bld) 0.7 % Normal 0.0-2.0 [facility] Comment on above: Performed By: #### M G3, BMP3 ####The performing lab is in the report. Eosinophils Auto #/vol (Bld) 0.3 10*3/uL Normal 0.0-0.5 [facility] Comment on above: Performed By: #### Ap G3, BMP3 ####The performing lab is in the report. Eosinophils/100 WBC Auto (Bld) 6.7 % High 1.0-6.0 [facility] Comment on above: Performed By: #### Ap G3, BMP3 ####The performing lab is in the report. Erythrocyte distribution width Auto Ratio (RBC) 16.3 % High 11.5-14.5 [facility] Comment on above: Performed By: #### Ap G3, BMP3 ####The performing lab is in the report. Granulocytes/100 WBC (Bld) 68.1 % Normal 40.0-80.0 [facility] Comment on above: Performed By: #### Ap G3, BMP3 ####The performing lab is in the report. Hematocrit Auto Volume Fraction (Bld) 23.0 % Low 40.0-52.0 [facility] Comment on above: Performed By: #### Ap G3, BMP3 ####The performing lab is in the report. Hemoglobin mass conc (Bld) 7.5 g/dL Low 13.0-18.0 [facility] Comment on above: Performed By: #### Ap G3, BMP3 ####The performing lab is in the report. Lymphocytes Auto #/vol (Bld) 0.7 10*3/uL Low 1.0-4.3 [facility] Comment on above: Performed By: #### Ap G3, BMP3 ####The performing lab is in the report. Lymphocytes/100 WBC Auto (Bld) 14.4 % Low 20.0-40.0 [facility] Comment on above: Performed By: #### Ap G3, BMP3 ####The performing lab is in the report. MCH Auto Entitic mass (RBC) 27.6 pg Normal 26.0-34.0 [facility] Comment on above: Performed By: #### Ap G3, BMP3 ####The performing lab is in the report. MCHC Auto mass conc (RBC) 32.6 % Normal 32.0-36.0 [facility] Comment on above: Performed By: #### Ap G3, BMP3 ####The performing lab is in the report. MCV Auto Entitic volume (RBC) 84.7 fL Normal 80.0-98.0 [facility] Comment on above: Performed By: #### Ap G3, BMP3 ####The performing lab is in the report. Monocytes Auto #/vol (Bld) 0.5 10*3/uL Normal 0.0-0.8 [facility] Comment on above: Performed By: #### Ap G3, BMP3 ####The performing lab is in the report. Monocytes/100 WBC Auto (Bld) 10.1 % High 2.0-10.0 [facility] Comment on above: Performed By: #### Ap G3, BMP3 ####The performing lab is in the report. Platelet mean volume Auto Entitic volume (Bld) 8.6 fL Normal 7.4-10.4 [facility] Comment on above: Performed By: #### Ap G3, BMP3 ####The performing lab is in the report. Platelets Auto #/vol (Bld) 211 10*3/uL Normal 140-440 [facility] Comment on above: Performed By: #### Ap G3, BMP3 ####The performing lab is in the report. RBC Auto #/vol (Bld) 2.72 10*6/uL Low 4.40-5.90 [facility] Comment on above: Performed By: #### Ap G3, BMP3 ####The performing lab is in the report. WBC Auto #/vol (Bld) 4.6 10*3/uL Normal 3.6-10.7 [facility] Comment on above: Performed By: #### Ap G3, BMP3 ####The performing lab is in the report. Magnesiumon 10-27-2017 Magnesium mass conc 1.6 mg/dL Normal 1.6-2.3 [facility] Comment on above: Performed By: #### Ap G3, BMP3 ####The performing lab is in the report. Phosphoruson 10-27-2017 Phosphate mass conc 2.8 mg/dL Normal 2.5-4.5 [facility] Comment on above: Performed By: #### M G3, BMP3 ####The performing lab is in the report. Basic Metabolic Panelon 10-15 Calcium mass conc 9.1 mg/dL Normal 8.4-10.4 [facility] Comment on above: Performed By: #### M G3, BMP3 ####The performing lab is in the report. Glucose mass conc 145 mg/dL High 70-100 [facility] Comment on above: Performed By: #### M G3, BMP3 ####The performing lab is in the report. Urea nitrogen mass conc 23 mg/dL High 7-20 [facility] Comment on above: Performed By: #### M G3, BMP3 ####The performing lab is in the report. Anion gap 3 molar conc 5 Normal [facility] Comment on above: Performed By: #### M G3, BMP3 ####The performing lab is in the report. CO2 molar conc 31 mmol/L High 22-[address] [facility] Comment on above: Performed By: #### M G3, BMP3 ####The performing lab is in the report. Creatinine mass conc 0.75 mg/dL Normal 0.52-1.25 [facility] Comment on above: Performed By: #### M G3, BMP3 ####The performing lab is in the report. GFR/1.73 sq M predicted among blacks MDRD vol rate/area (S/P/Bld) mL/min/{1.73_m2} Normal >60 [facility] Comment on above: Performed By: #### M G3, BMP3 ####The performing lab is in the report. GFR/1.73 sq M predicted among non-blacks MDRD vol rate/area (S/P/Bld) mL/min/{1.73_m2} Normal >60 [facility] Comment on above: Result Comment: Sour ce- MDRD equation with creatinine calibration to IDMS(NKDEP) eGFR not recommended for drug dose adjustment Performed By: #### M G3, BMP3 ####The performing lab is in the report. Chloride molar conc 101 mmol/L Normal 98-107 [facility] Comment on above: Performed By: #### M G3, BMP3 ####The performing lab is in the report. Potassium molar conc 3.6 mmol/L Normal 3.5-5.1 [facility] Comment on above: Performed By: #### M G3, BMP3 ####The performing lab is in the report. Sodium molar conc 137 mmol/L Normal 137-145 [facility] Comment on above: Performed By: #### M G3, BMP3 ####The performing lab is in the report. Glucose,Bedsideon 10-26-2017 Glucose mass conc 135 mg/dL High 70-100 [facility] Comment on above: Result Comment: Test performed by glucose meter. Results may be 10%-15% lowerthan serum/plasma values. (CLIA ID [id number]) Performed By: #### M G3, BMP3 ####The performing lab is in the report. Glucose mass conc 166 mg/dL High 70-100 [facility] Comment on above: Result Comment: Test performed by glucose meter. Results may be 10%-15% lowerthan serum/plasma values. (CLIA ID [id number]) Performed By: #### M G3, BMP3 ####The performing lab is in the report. Glucose mass conc 105 mg/dL High 70-100 [facility] Comment on above: Result Comment: Test performed by glucose meter. Results may be 10%-15% lowerthan serum/plasma values. (CLIA ID [id number]) Performed By: #### M G3, BMP3 ####The performing lab is in the report. Hemogram w/ Autodiffon 10-26 Abs Baso Cnt 0.0 10*3/uL Normal 0.0-0.2 [facility] Comment on above: Performed By: #### M G3, BMP3 ####The performing lab is in the report. Abs Neutrophile Cnt 4.5 10*3/uL Normal 1.8-7.0 [facility] Comment on above: Performed By: #### M G3, BMP3 ####The performing lab is in the report. Basophils/100 WBC Auto (Bld) 0.5 % Normal 0.0-2.0 [facility] Comment on above: Performed By: #### Ap G3, BMP3 ####The performing lab is in the report. Eosinophils Auto #/vol (Bld) 0.3 10*3/uL Normal 0.0-0.5 [facility] Comment on above: Performed By: #### Ap G3, BMP3 ####The performing lab is in the report. Eosinophils/100 WBC Auto (Bld) 5.3 % Normal 1.0-6.0 [facility] Comment on above: Performed By: #### Ap Sanchez, BMP3 ####The performing lab is in the report. Erythrocyte distribution width Auto Ratio (RBC) 16.5 % High 11.5-14.5 [facility] Comment on above: Performed By: #### Ap Sanchez, BMP3 ####The performing lab is in the report. Granulocytes/100 WBC (Bld) 71.4 % Normal 40.0-80.0 [facility] Comment on above: Performed By: #### Ap G3, BMP3 ####The performing lab is in the report. Hematocrit Auto Volume Fraction (Bld) 23.1 % Low 40.0-52.0 [facility] Comment on above: Performed By: #### Ap G3, BMP3 ####The performing lab is in the report. Hemoglobin mass conc (Bld) 7.5 g/dL Low 13.0-18.0 [facility] Comment on above: Performed By: #### Ap G3, BMP3 ####The performing lab is in the report. Lymphocytes Auto #/vol (Bld) 0.7 10*3/uL Low 1.0-4.3 [facility] Comment on above: Performed By: #### Ap G3, BMP3 ####The performing lab is in the report. Lymphocytes/100 WBC Auto (Bld) 11.3 % Low 20.0-40.0 [facility] Comment on above: Performed By: #### Ap G3, BMP3 ####The performing lab is in the report. MCH Auto Entitic mass (RBC) 27.9 pg Normal 26.0-34.0 [facility] Comment on above: Performed By: #### Ap G3, BMP3 ####The performing lab is in the report. MCHC Auto mass conc (RBC) 32.4 % Normal 32.0-36.0 [facility] Comment on above: Performed By: #### Ap G3, BMP3 ####The performing lab is in the report. MCV Auto Entitic volume (RBC) 86.1 fL Normal 80.0-98.0 [facility] Comment on above: Performed By: #### Ap G3, BMP3 ####The performing lab is in the report. Monocytes Auto #/vol (Bld) 0.7 10*3/uL Normal 0.0-0.8 [facility] Comment on above: Performed By: #### Ap G3, BMP3 ####The performing lab is in the report. Monocytes/100 WBC Auto (Bld) 11.5 % High 2.0-10.0 [facility] Comment on above: Performed By: #### Ap G3, BMP3 ####The performing lab is in the report. Platelet mean volume Auto Entitic volume (Bld) 8.7 fL Normal 7.4-10.4 [facility] Comment on above: Performed By: #### Ap G3, BMP3 ####The performing lab is in the report. Platelets Auto #/vol (Bld) 218 10*3/uL Normal 140-440 [facility] Comment on above: Performed By: #### Ap G3, BMP3 ####The performing lab is in the report. RBC Auto #/vol (Bld) 2.68 10*6/uL Low 4.40-5.90 [facility] Comment on above: Performed By: #### Ap G3, BMP3 ####The performing lab is in the report. WBC Auto #/vol (Bld) 6.2 10*3/uL Normal 3.6-10.7 [facility] Comment on above: Performed By: #### Ap G3, BMP3 ####The performing lab is in the report. Magnesiumon 10-26-2017 Magnesium mass conc 1.7 mg/dL Normal 1.6-2.3 [facility] Comment on above: Performed By: #### M G3, BMP3 ####The performing lab is in the report. Phosphoruson 10-26-2017 Phosphate mass conc 2.6 mg/dL Normal 2.5-4.5 [facility] Comment on above: Performed By: #### M G3, BMP3 ####The performing lab is in the report. Basic Metabolic Panelon 10-15 Anion gap 3 molar conc 9 Normal [facility] Comment on above: Performed By: #### M G3, BMP3 ####The performing lab is in the report. Calcium mass conc 9.4 mg/dL Normal 8.4-10.4 [facility] Comment on above: Performed By: #### M G3, BMP3 ####The performing lab is in the report. CO2 molar conc 29 mmol/L Normal 22-30 [facility] Comment on above: Performed By: #### M G3, BMP3 ####The performing lab is in the report. Glucose mass conc 148 mg/dL High 70-100 [facility] Comment on above: Performed By: #### M G3, BMP3 ####The performing lab is in the report. Urea nitrogen mass conc 21 mg/dL High 7-20 [facility] Comment on above: Performed By: #### M G3, BMP3 ####The performing lab is in the report. Creatinine mass conc 0.83 mg/dL Normal 0.52-1.25 [facility] Comment on above: Performed By: #### M G3, BMP3 ####The performing lab is in the report. GFR/1.73 sq M predicted among blacks MDRD vol rate/area (S/P/Bld) mL/min/{1.73_m2} Normal >60 [facility] Comment on above: Performed By: #### M G3, BMP3 ####The performing lab is in the report. GFR/1.73 sq M predicted among non-blacks MDRD vol rate/area (S/P/Bld) mL/min/{1.73_m2} Normal >60 [facility] Comment on above: Result Comment: Sour ce- MDRD equation with creatinine calibration to IDMS(NKDEP) eGFR not recommended for drug dose adjustment Performed By: #### M G3, BMP3 ####The performing lab is in the report. Potassium molar conc 4.1 mmol/L Normal 3.5-5.1 [facility] Comment on above: Performed By: #### M G3, BMP3 ####The performing lab is in the report. Chloride molar conc 101 mmol/L Normal 98-107 [facility] Comment on above: Performed By: #### M G3, BMP3 ####The performing lab is in the report. Sodium molar conc 138 mmol/L Normal 137-145 [facility] Comment on above: Performed By: #### M G3, BMP3 ####The performing lab is in the report. CR Chest Portableon 10-26-19 18 CR Chest Portable Patient Name: JAMES REYES Diagnostic Radiology Exam Date/Time 10/25/2017 10:26:30 EDT Exam CR Chest Portable Ordering Physician JACQUES WADE Accession Number [id number] CPT4 Codes 17535 () Reason For Exam line repositioned Report [...] Transcribed Date and Time: 10/25/2017 12:47 Normal [facility] Glucose,Bedsideon 10-25-2017 Glucose mass conc 149 mg/dL High 70-100 [facility] Comment on above: Result Comment: Test performed by glucose meter. Results may be 10%-15% lowerthan serum/plasma values. (CLIA ID [id number]) Performed By: #### M G3, BMP3 ####The performing lab is in the report. Glucose mass conc 162 mg/dL High 70-100 [facility] Comment on above: Result Comment: Test performed by glucose meter. Results may be 10%-15% lowerthan serum/plasma values. (CLIA ID [id number]) Performed By: #### M G3, BMP3 ####The performing lab is in the report. Glucose mass conc 168 mg/dL High 70-100 [facility] Comment on above: Result Comment: Test performed by glucose meter. Results may be 10%-15% lowerthan serum/plasma values. (CLIA ID [id number]) Performed By: #### Ap G3, BMP3 ####The performing lab is in the report. Glucose mass conc 164 mg/dL High 70-100 [facility] Comment on above: Result Comment: Test performed by glucose meter. Results may be 10%-15% lowerthan serum/plasma values. (CLIA ID [id number]) Performed By: #### Ap Sanchez, BMP3 ####The performing lab is in the report. Hemogram w/ Autodiffon 10-25 Abs Baso Cnt 0.0 10*3/uL Normal 0.0-0.2 [facility] Comment on above: Performed By: #### Ap G3, BMP3 ####The performing lab is in the report. Abs Neutrophile Cnt 7.5 10*3/uL High 1.8-7.0 [facility] Comment on above: Performed By: #### M G3, BMP3 ####The performing lab is in the report. Basophils/100 WBC Auto (Bld) 0.5 % Normal 0.0-2.0 [facility] Comment on above: Performed By: #### M G3, BMP3 ####The performing lab is in the report. Eosinophils Auto #/vol (Bld) 0.1 10*3/uL Normal 0.0-0.5 [facility] Comment on above: Performed By: #### Ap G3, BMP3 ####The performing lab is in the report. Eosinophils/100 WBC Auto (Bld) 0.8 % Low 1.0-6.0 [facility] Comment on above: Performed By: #### Ap G3, BMP3 ####The performing lab is in the report. Erythrocyte distribution width Auto Ratio (RBC) 16.2 % High 11.5-14.5 [facility] Comment on above: Performed By: #### Ap G3, BMP3 ####The performing lab is in the report. Granulocytes/100 WBC (Bld) 82.8 % High 40.0-80.0 [facility] Comment on above: Performed By: #### Ap G3, BMP3 ####The performing lab is in the report. Hematocrit Auto Volume Fraction (Bld) 26.7 % Low 40.0-52.0 [facility] Comment on above: Performed By: #### Ap Sanchez, BMP3 ####The performing lab is in the report. Hemoglobin mass conc (Bld) 8.8 g/dL Low 13.0-18.0 [facility] Comment on above: Performed By: #### Ap G3, BMP3 ####The performing lab is in the report. Lymphocytes Auto #/vol (Bld) 0.5 10*3/uL Low 1.0-4.3 [facility] Comment on above: Performed By: #### Ap G3, BMP3 ####The performing lab is in the report. Lymphocytes/100 WBC Auto (Bld) 5.8 % Low 20.0-40.0 [facility] Comment on above: Performed By: #### Ap G3, BMP3 ####The performing lab is in the report. MCH Auto Entitic mass (RBC) 27.8 pg Normal 26.0-34.0 [facility] Comment on above: Performed By: #### Ap G3, BMP3 ####The performing lab is in the report. MCHC Auto mass conc (RBC) 33.1 % Normal 32.0-36.0 [facility] Comment on above: Performed By: #### Ap G3, BMP3 ####The performing lab is in the report. MCV Auto Entitic volume (RBC) 84.1 fL Normal 80.0-98.0 [facility] Comment on above: Performed By: #### Ap G3, BMP3 ####The performing lab is in the report. Monocytes Auto #/vol (Bld) 0.9 10*3/uL High 0.0-0.8 [facility] Comment on above: Performed By: #### Ap G3, BMP3 ####The performing lab is in the report. Monocytes/100 WBC Auto (Bld) 10.1 % High 2.0-10.0 [facility] Comment on above: Performed By: #### Ap G3, BMP3 ####The performing lab is in the report. Platelet mean volume Auto Entitic volume (Bld) 8.4 fL Normal 7.4-10.4 [facility] Comment on above: Performed By: #### Ap G3, BMP3 ####The performing lab is in the report. Platelets Auto #/vol (Bld) 250 10*3/uL Normal 140-440 [facility] Comment on above: Performed By: #### Ap G3, BMP3 ####The performing lab is in the report. RBC Auto #/vol (Bld) 3.17 10*6/uL Low 4.40-5.90 [facility] Comment on above: Performed By: #### Ap G3, BMP3 ####The performing lab is in the report. WBC Auto #/vol (Bld) 9.0 10*3/uL Normal 3.6-10.7 [facility] Comment on above: Performed By: #### Ap G3, BMP3 ####The performing lab is in the report. Magnesiumon 10-25-2017 Magnesium mass conc 1.7 mg/dL Normal 1.6-2.3 [facility] Comment on above: Performed By: #### Ap G3, BMP3 ####The performing lab is in the report. Phosphoruson 10-25-2017 Phosphate mass conc 3.1 mg/dL Normal 2.5-4.5 [facility] Comment on above: Performed By: #### Ap G3, BMP3 ####The performing lab is in the report. Procalcitoninon 10-25-2017 Protein mass conc g/dL Normal <0.10 [facility] Comment on above: Performed By: #### Ap G3, BMP3 ####The performing lab is in the report. Arterial Blood Gaseson 10-24 HCO3 molar conc (Bld) 27.9 mmol/L High 21.0-25.0 [facility] Comment on above: Performed By: #### Ap G3, BMP3 ####The performing lab is in the report. Hemoglobin mass conc (Bld) 9.3 g/dL Normal ScreenOnly [facility] Comment on above: Performed By: #### Ap G3, BMP3 ####The performing lab is in the report. Oxygen ppres (BldA) 103.5 mm[Hg] High 80.0-100.0 [facility] Comment on above: Performed By: #### Ap G3, BMP3 ####The performing lab is in the report. Oxygen saturation in Blood 97.1 % Normal 95.0-100.0 [facility] Comment on above: Performed By: #### Ap G3, BMP3 ####The performing lab is in the report. pCO2 42.1 mm[Hg] Normal 35.0-45.0 [facility] Comment on above: Performed By: #### Ap G3, BMP3 ####The performing lab is in the report. pH (Bld) 7.439 Normal 7.350-7.450 [facility] Comment on above: Performed By: #### Ap G3, BMP3 ####The performing lab is in the report. Std Base Excess 3.4 mmol/L High -3.0-3.0 [facility] Comment on above: Performed By: #### Ap G3, BMP3 ####The performing lab is in the report. TCO2 29.2 mmol/L High 23.0-27.0 [facility] Comment on above: Performed By: #### Ap G3, BMP3 ####The performing lab is in the report. FIO2 4 L Normal [facility] Comment on above: Performed By: #### Ap G3, BMP3 ####The performing lab is in the report. Basic Metabolic Panelon 07-1 Anion gap 3 molar conc 7 Normal [facility] Comment on above: Performed By: #### Ap G3, BMP3 ####The performing lab is in the report. Calcium mass conc 9.2 mg/dL Normal 8.4-10.4 [facility] Comment on above: Performed By: #### Ap G3, BMP3 ####The performing lab is in the report. Chloride molar conc 102 mmol/L Normal 98-107 [facility] Comment on above: Performed By: #### Ap G3, BMP3 ####The performing lab is in the report. CO2 molar conc 29 mmol/L Normal 22-[address] [facility] Comment on above: Performed By: #### Ap G3, BMP3 ####The performing lab is in the report. Creatinine mass conc 0.89 mg/dL Normal 0.52-1.25 [facility] Comment on above: Performed By: #### Ap G3, BMP3 ####The performing lab is in the report. GFR/1.73 sq M predicted among blacks MDRD vol rate/area (S/P/Bld) mL/min/{1.73_m2} Normal >60 [facility] Comment on above: Performed By: #### Ap G3, BMP3 ####The performing lab is in the report. GFR/1.73 sq M predicted among non-blacks MDRD vol rate/area (S/P/Bld) mL/min/{1.73_m2} Normal >60 [facility] Comment on above: Result Comment: Sour ce- MDRD equation with creatinine calibration to IDMS(NKDEP) eGFR not recommended for drug dose adjustment Performed By: #### Ap G3, BMP3 ####The performing lab is in the report. Glucose mass conc 110 mg/dL High 70-100 [facility] Comment on above: Performed By: #### Ap G3, BMP3 ####The performing lab is in the report. Potassium molar conc 3.8 mmol/L Normal 3.5-5.1 [facility] Comment on above: Performed By: #### M G3, BMP3 ####The performing lab is in the report. Sodium molar conc 137 mmol/L Normal 137-145 [facility] Comment on above: Result Comment: Down time Data Recovery: Caution when interpreting results with collectiondate & time. Performed By: #### M G3, BMP3 ####The performing lab is in the report. Urea nitrogen mass conc 26 mg/dL High 7-20 [facility] Comment on above: Performed By: #### M G3, BMP3 ####The performing lab is in the report. CR Chest Portableon 10-25-19 18 CR Chest Portable Patient Name: JAMES REYES Diagnostic Radiology Exam Date/Time 10/24/2017 18:18:27 EDT Exam CR Chest Portable Ordering Physician ERIC DENNEY D.O. Accession Number [id number] CPT4 Codes 33990 () Reason For Exam acute hypoxic respiratory [...] Transcribed Date and Time: 10/24/2017 7:34 Normal [facility] Glucose,Bedsideon 10-24-2017 Glucose mass conc 160 mg/dL High 70-100 [facility] Comment on above: Result Comment: Test performed by glucose meter. Results may be 10%-15% lowerthan serum/plasma values. (CLIA ID [id number]) Performed By: #### M G3, BMP3 ####The performing lab is in the report. Glucose mass conc 163 mg/dL High 70-100 [facility] Comment on above: Result Comment: Test performed by glucose meter. Results may be 10%-15% lowerthan serum/plasma values. (CLIA ID [id number]) Performed By: #### M G3, BMP3 ####The performing lab is in the report. Glucose mass conc 127 mg/dL High 70-100 [facility] Comment on above: Result Comment: Test performed by glucose meter. Results may be 10%-15% lowerthan serum/plasma values. (CLIA ID [id number]) Performed By: #### Ap G3, BMP3 ####The performing lab is in the report. Hemogram w/ Autodiffon 10-24 Abs Baso Cnt 0.0 10*3/uL Normal 0.0-0.2 [facility] Comment on above: Performed By: #### Ap G3, BMP3 ####The performing lab is in the report. Abs Neutrophile Cnt 3.5 10*3/uL Normal 1.8-7.0 [facility] Comment on above: Performed By: #### Ap G3, BMP3 ####The performing lab is in the report. Basophils/100 WBC Auto (Bld) 0.9 % Normal 0.0-2.0 [facility] Comment on above: Performed By: #### Ap G3, BMP3 ####The performing lab is in the report. Eosinophils Auto #/vol (Bld) 0.1 10*3/uL Normal 0.0-0.5 [facility] Comment on above: Performed By: #### Ap G3, BMP3 ####The performing lab is in the report. Eosinophils/100 WBC Auto (Bld) 1.8 % Normal 1.0-6.0 [facility] Comment on above: Performed By: #### Ap G3, BMP3 ####The performing lab is in the report. Erythrocyte distribution width Auto Ratio (RBC) 15.9 % High 11.5-14.5 [facility] Comment on above: Performed By: #### Ap G3, BMP3 ####The performing lab is in the report. Granulocytes/100 WBC (Bld) 67.5 % Normal 40.0-80.0 [facility] Comment on above: Performed By: #### Ap G3, BMP3 ####The performing lab is in the report. Hematocrit Auto Volume Fraction (Bld) 29.4 % Low 40.0-52.0 [facility] Comment on above: Performed By: #### M G3, BMP3 ####The performing lab is in the report. Hemoglobin mass conc (Bld) 9.6 g/dL Low 13.0-18.0 [facility] Comment on above: Performed By: #### M G3, BMP3 ####The performing lab is in the report. Lymphocytes Auto #/vol (Bld) 0.9 10*3/uL Low 1.0-4.3 [facility] Comment on above: Performed By: #### Ap G3, BMP3 ####The performing lab is in the report. Lymphocytes/100 WBC Auto (Bld) 18.3 % Low 20.0-40.0 [facility] Comment on above: Performed By: #### Ap G3, BMP3 ####The performing lab is in the report. MCH Auto Entitic mass (RBC) 27.5 pg Normal 26.0-34.0 [facility] Comment on above: Performed By: #### Ap G3, BMP3 ####The performing lab is in the report. MCHC Auto mass conc (RBC) 32.8 % Normal 32.0-36.0 [facility] Comment on above: Performed By: #### Ap G3, BMP3 ####The performing lab is in the report. MCV Auto Entitic volume (RBC) 84.0 fL Normal 80.0-98.0 [facility] Comment on above: Performed By: #### Ap G3, BMP3 ####The performing lab is in the report. Monocytes Auto #/vol (Bld) 0.6 10*3/uL Normal 0.0-0.8 [facility] Comment on above: Performed By: #### M G3, BMP3 ####The performing lab is in the report. Monocytes/100 WBC Auto (Bld) 11.5 % High 2.0-10.0 [facility] Comment on above: Performed By: #### M G3, BMP3 ####The performing lab is in the report. Platelet mean volume Auto Entitic volume (Bld) 8.8 fL Normal 7.4-10.4 [facility] Comment on above: Performed By: #### M G3, BMP3 ####The performing lab is in the report. Platelets Auto #/vol (Bld) 286 10*3/uL Normal 140-440 [facility] Comment on above: Performed By: #### M G3, BMP3 ####The performing lab is in the report. RBC Auto #/vol (Bld) 3.49 10*6/uL Low 4.40-5.90 [facility] Comment on above: Performed By: #### M G3, BMP3 ####The performing lab is in the report. WBC Auto #/vol (Bld) 5.2 10*3/uL Normal 3.6-10.7 [facility] Comment on above: Performed By: #### M G3, BMP3 ####The performing lab is in the report. Procalcitoninon 10-24-2017 Interpretation See Below Normal [facility] Comment on above: Result Comment: PCT <0.50 = Low risk of severe sepsis and/or septic shock.PCT >2.00 = High risk of severe sepsis and/or septic shock. Performed By: #### M G3, BMP3 ####The performing lab is in the report. Surgical Pathologyon [facility] Surgical Pathology [id number] [facility] PATHOLOGY AND LABORATORY MEDICINE [address] [place] [address] [phone] FINAL SURGICAL PATHOLOGY REPORT NAME: JAMES REYES Joyce .O.B.: 1955 62 Y M MARY SCHREIBER.: [id number]: [id number] PROCEDURE 10/24/2017 DATE:SURGEON: MELQUIADES COLON M.D. RECEIVED 10/24/2017 DATE:ATTENDING: STACEY CLEMONS M.D. REPORT DATE: 10/26/2017 COPIES TO: DIAGNOSIS:"STERNA L WOUND", DEBRIDEMENT - SKIN WITH UNDERLYING FAT NECROSIS ANDGRANULATION TISSUE.MIGEL/ARSENIO BALDERAS M.D. CLINICAL INFORMATION: Not providedSPECIMEN: WOUND [...] theirperformance characteristics determined by [facility]. They have not been cleared by [...] false negativity on decalcified specimens.Professional Performing Location: [address] [address]. DEPARTMENT OF PATHOLOGY AND LABORATORY MEDICINE [place], [place] [address] Normal [facility] Basic Metabolic Panelon 07-0 Calcium mass conc 9.3 mg/dL Normal 8.4-10.4 [facility] Comment on above: Performed By: #### Ap G3, BMP3 ####The performing lab is in the report. Glucose mass conc 90 mg/dL Normal 70-100 [facility] Comment on above: Performed By: #### Ap G3, BMP3 ####The performing lab is in the report. Urea nitrogen mass conc 24 mg/dL High 7-20 [facility] Comment on above: Performed By: #### Ap G3, BMP3 ####The performing lab is in the report. Anion gap 3 molar conc 6 Normal [facility] Comment on above: Performed By: #### M G3, BMP3 ####The performing lab is in the report. CO2 molar conc 28 mmol/L Normal 22-30 [facility] Comment on above: Performed By: #### Ap G3, BMP3 ####The performing lab is in the report. Creatinine mass conc 0.86 mg/dL Normal 0.52-1.25 [facility] Comment on above: Performed By: #### Ap G3, BMP3 ####The performing lab is in the report. GFR/1.73 sq M predicted among blacks MDRD vol rate/area (S/P/Bld) mL/min/{1.73_m2} Normal >60 [facility] Comment on above: Performed By: #### [...] Potassium molar conc 3.8 mmol/L Normal 3.5-5.1 [facility] Comment on above: Performed By: #### M G3, BMP3 ####The performing lab is in the report. Chloride molar conc 103 mmol/L Normal 98-107 [facility] Comment on above: Performed By: #### M G3, BMP3 ####The performing lab is in the report. Sodium molar conc 138 mmol/L Normal 137-145 [facility] Comment on above: Performed By: #### M G3, BMP3 ####The performing lab is in the report. Glucose,Bedsideon 10-23-2017 Glucose mass conc 166 mg/dL High 70-100 [facility] Comment on above: Result Comment: Test performed by glucose meter. Results may be 10%-15% lowerthan serum/plasma values. (CLIA ID [id number]) Performed By: #### M G3, BMP3 ####The performing lab is in the report. Glucose mass conc 123 mg/dL High 70-100 [facility] Comment on above: Result Comment: Test performed by glucose meter. Results may be 10%-15% lowerthan serum/plasma values. (CLIA ID [id number]) Performed By: #### M G3, BMP3 ####The performing lab is in the report. Glucose mass conc 141 mg/dL High 70-100 [facility] Comment on above: Result Comment: Test performed by glucose meter. Results may be 10%-15% lowerthan serum/plasma values. (CLIA ID [id number]) Performed By: #### M G3, BMP3 ####The performing lab is in the report. Glucose mass conc 107 mg/dL High 70-100 [facility] Comment on above: Result Comment: Test performed by glucose meter. Results may be 10%-15% lowerthan serum/plasma values. (CLIA ID [id number]) Performed By: #### Ap G3, BMP3 ####The performing lab is in the report. Hemogram w/ Autodiffon 10-23 Abs Baso Cnt 0.0 10*3/uL Normal 0.0-0.2 [facility] Comment on above: Performed By: #### Ap G3, BMP3 ####The performing lab is in the report. Abs Neutrophile Cnt 3.3 10*3/uL Normal 1.8-7.0 [facility] [employer] Comment on above: Performed By: #### Ap G3, BMP3 ####The performing lab is in the report. Basophils/100 WBC Auto (Bld) 0.7 % Normal 0.0-2.0 [facility] [employer] Comment on above: Performed By: #### Ap G3, BMP3 ####The performing lab is in the report. Eosinophils Auto #/vol (Bld) 0.1 10*3/uL Normal 0.0-0.5 [facility] [employer] Comment on above: Performed By: #### Ap G3, BMP3 ####The performing lab is in the report. Eosinophils/100 WBC Auto (Bld) 2.1 % Normal 1.0-6.0 [facility] [employer] Comment on above: Performed By: #### Ap G3, BMP3 ####The performing lab is in the report. Erythrocyte distribution width Auto Ratio (RBC) 15.9 % High 11.5-14.5 [facility] Comment on above: Performed By: #### Ap G3, BMP3 ####The performing lab is in the report. Granulocytes/100 WBC (Bld) 67.4 % Normal 40.0-80.0 [facility] Comment on above: Performed By: #### Ap G3, BMP3 ####The performing lab is in the report. Hematocrit Auto Volume Fraction (Bld) 29.3 % Low 40.0-52.0 [facility] Comment on above: Performed By: #### Ap G3, BMP3 ####The performing lab is in the report. Hemoglobin mass conc (Bld) 9.6 g/dL Low 13.0-18.0 [facility] Comment on above: Performed By: #### Ap G3, BMP3 ####The performing lab is in the report. Lymphocytes Auto #/vol (Bld) 0.9 10*3/uL Low 1.0-4.3 [facility] Comment on above: Performed By: #### Ap G3, BMP3 ####The performing lab is in the report. Lymphocytes/100 WBC Auto (Bld) 17.6 % Low 20.0-40.0 [facility] Comment on above: Performed By: #### Ap G3, BMP3 ####The performing lab is in the report. MCH Auto Entitic mass (RBC) 27.5 pg Normal 26.0-34.0 [facility] Comment on above: Performed By: #### Ap G3, BMP3 ####The performing lab is in the report. MCHC Auto mass conc (RBC) 32.9 % Normal 32.0-36.0 [facility] Comment on above: Performed By: #### Ap G3, BMP3 ####The performing lab is in the report. MCV Auto Entitic volume (RBC) 83.8 fL Normal 80.0-98.0 [facility] Comment on above: Performed By: #### Ap G3, BMP3 ####The performing lab is in the report. Monocytes Auto #/vol (Bld) 0.6 10*3/uL Normal 0.0-0.8 [facility] Comment on above: Performed By: #### Ap G3, BMP3 ####The performing lab is in the report. Monocytes/100 WBC Auto (Bld) 12.2 % High 2.0-10.0 [facility] Comment on above: Performed By: #### Ap G3, BMP3 ####The performing lab is in the report. Platelet mean volume Auto Entitic volume (Bld) 8.5 fL Normal 7.4-10.4 [facility] Comment on above: Performed By: #### Ap G3, BMP3 ####The performing lab is in the report. Platelets Auto #/vol (Bld) 266 10*3/uL Normal 140-440 [facility] Comment on above: Performed By: #### Ap G3, BMP3 ####The performing lab is in the report. RBC Auto #/vol (Bld) 3.49 10*6/uL Low 4.40-5.90 [facility] Comment on above: Performed By: #### M G3, BMP3 ####The performing lab is in the report. WBC Auto #/vol (Bld) 4.9 10*3/uL Normal 3.6-10.7 [facility] Comment on above: Performed By: #### Ap G3, BMP3 ####The performing lab is in the report. Basic Metabolic Panelon 07-0 Anion gap 3 molar conc 5 Normal [facility] Comment on above: Performed By: #### Ap G3, BMP3 ####The performing lab is in the report. Calcium mass conc 9.2 mg/dL Normal 8.4-10.4 [facility] Comment on above: Performed By: #### Ap G3, BMP3 ####The performing lab is in the report. CO2 molar conc 30 mmol/L Normal 22-30 [facility] Comment on above: Performed By: #### Ap G3, BMP3 ####The performing lab is in the report. Glucose mass conc 72 mg/dL Normal 70-100 [facility] Comment on above: Performed By: #### Ap G3, BMP3 ####The performing lab is in the report. Urea nitrogen mass conc 21 mg/dL High 7-20 [facility] Comment on above: Performed By: #### M G3, BMP3 ####The performing lab is in the report. Creatinine mass conc 0.86 mg/dL Normal 0.52-1.25 [facility] Comment on above: Performed By: #### M G3, BMP3 ####The performing lab is in the report. GFR/1.73 sq M predicted among blacks MDRD vol rate/area (S/P/Bld) mL/min/{1.73_m2} Normal >60 [facility] Comment on above: Performed By: #### M G3, BMP3 ####The performing lab is in the report. GFR/1.73 sq M predicted among non-blacks MDRD vol rate/area (S/P/Bld) mL/min/{1.73_m2} Normal >60 [facility] Comment on above: Result Comment: Sour ce- MDRD equation with creatinine calibration to IDMS(NKDEP) eGFR not recommended for drug dose adjustment Performed By: #### M G3, BMP3 ####The performing lab is in the report. Potassium molar conc 3.4 mmol/L Low 3.5-5.1 [facility] Comment on above: Performed By: #### M G3, BMP3 ####The performing lab is in the report. Sodium molar conc 137 mmol/L Normal 137-145 [facility] Comment on above: Performed By: #### M G3, BMP3 ####The performing lab is in the report. Chloride molar conc 101 mmol/L Normal 98-107 [facility] Comment on above: Performed By: #### M G3, BMP3 ####The performing lab is in the report. CULTURE ANAEROBEon 8 CULTURE ANAEROBE CULTURE ANAEROBE --> Status: F No growth of anaerobes at 5 days. Normal [facility] Comment on above: Order Comment: or co llected Performed By: #### H EMDF, APTT, HA1C2 ####The performing lab is in the report. Glucose,Bedsideon 10-22-2017 Glucose mass conc 112 mg/dL High 70-100 [facility] Comment on above: Result Comment: Test performed by glucose meter. Results may be 10%-15% lowerthan serum/plasma values. (CLIA ID [id number]) Performed By: #### M G3, BMP3 ####The performing lab is in the report. Glucose mass conc 116 mg/dL High 70-100 [facility] Comment on above: Result Comment: Test performed by glucose meter. Results may be 10%-15% lowerthan serum/plasma values. (CLIA ID [id number]) Performed By: #### M G3, BMP3 ####The performing lab is in the report. Glucose mass conc 159 mg/dL High 70-100 [facility] Comment on above: Result Comment: Test performed by glucose meter. Results may be 10%-15% lowerthan serum/plasma values. (CLIA ID [id number]) Performed By: #### M G3, BMP3 ####The performing lab is in the report. Glucose mass conc 101 mg/dL High 70-100 [facility] Comment on above: Result Comment: Test performed by glucose meter. Results may be 10%-15% lowerthan serum/plasma values. (CLIA ID [id number]) Performed By: #### M G3, BMP3 ####The performing lab is in the report. Hemogram w/ Autodiffon 10-22 Abs Baso Cnt 0.0 10*3/uL Normal 0.0-0.2 [facility] Comment on above: Performed By: #### M G3, BMP3 ####The performing lab is in the report. Abs Neutrophile Cnt 4.0 10*3/uL Normal 1.8-7.0 [facility] [employer] Comment on above: Performed By: #### M G3, BMP3 ####The performing lab is in the report. Basophils/100 WBC Auto (Bld) 0.7 % Normal 0.0-2.0 [facility] [employer] Comment on above: Performed By: #### M G3, BMP3 ####The performing lab is in the report. Eosinophils Auto #/vol (Bld) 0.2 10*3/uL Normal 0.0-0.5 [facility] [employer] Comment on above: Performed By: #### M G3, BMP3 ####The performing lab is in the report. Eosinophils/100 WBC Auto (Bld) 2.9 % Normal 1.0-6.0 [facility] Comment on above: Performed By: #### M G3, BMP3 ####The performing lab is in the report. Erythrocyte distribution width Auto Ratio (RBC) 16.0 % High 11.5-14.5 [facility] Comment on above: Performed By: #### Ap G3, BMP3 ####The performing lab is in the report. Granulocytes/100 WBC (Bld) 69.4 % Normal 40.0-80.0 [facility] Comment on above: Performed By: #### Ap G3, BMP3 ####The performing lab is in the report. Hematocrit Auto Volume Fraction (Bld) 29.9 % Low 40.0-52.0 [facility] Comment on above: Performed By: #### Ap G3, BMP3 ####The performing lab is in the report. Hemoglobin mass conc (Bld) 10.0 g/dL Low 13.0-18.0 [facility] Comment on above: Performed By: #### Ap G3, BMP3 ####The performing lab is in the report. Lymphocytes Auto #/vol (Bld) 0.9 10*3/uL Low 1.0-4.3 [facility] Comment on above: Performed By: #### Ap G3, BMP3 ####The performing lab is in the report. Lymphocytes/100 WBC Auto (Bld) 16.3 % Low 20.0-40.0 [facility] Comment on above: Performed By: #### Ap G3, BMP3 ####The performing lab is in the report. MCH Auto Entitic mass (RBC) 28.1 pg Normal 26.0-34.0 [facility] Comment on above: Performed By: #### Ap G3, BMP3 ####The performing lab is in the report. MCHC Auto mass conc (RBC) 33.4 % Normal 32.0-36.0 [facility] Comment on above: Performed By: #### Ap G3, BMP3 ####The performing lab is in the report. MCV Auto Entitic volume (RBC) 84.2 fL Normal 80.0-98.0 [facility] Comment on above: Performed By: #### Ap G3, BMP3 ####The performing lab is in the report. Monocytes Auto #/vol (Bld) 0.6 10*3/uL Normal 0.0-0.8 [facility] Comment on above: Performed By: #### Ap G3, BMP3 ####The performing lab is in the report. Monocytes/100 WBC Auto (Bld) 10.7 % High 2.0-10.0 [facility] Comment on above: Performed By: #### Ap G3, BMP3 ####The performing lab is in the report. Platelet mean volume Auto Entitic volume (Bld) 8.5 fL Normal 7.4-10.4 [facility] Comment on above: Performed By: #### Ap G3, BMP3 ####The performing lab is in the report. Platelets Auto #/vol (Bld) 284 10*3/uL Normal 140-440 [facility] Comment on above: Performed By: #### Ap G3, BMP3 ####The performing lab is in the report. RBC Auto #/vol (Bld) 3.55 10*6/uL Low 4.40-5.90 [facility] Comment on above: Performed By: #### Ap G3, BMP3 ####The performing lab is in the report. WBC Auto #/vol (Bld) 5.7 10*3/uL Normal 3.6-10.7 [facility] Comment on above: Performed By: #### Ap Sanchez, BMP3 ####The performing lab is in the report. Basic Metabolic Panelon 07-0 Calcium mass conc 8.9 mg/dL Normal 8.4-10.4 [facility] Comment on above: Performed By: #### Ap G3, BMP3 ####The performing lab is in the report. Glucose mass conc 70 mg/dL Normal 70-100 [facility] Comment on above: Performed By: #### Ap G3, BMP3 ####The performing lab is in the report. Anion gap 3 molar conc 5 Normal [facility] Comment on above: Performed By: #### Ap G3, BMP3 ####The performing lab is in the report. CO2 molar conc 29 mmol/L Normal 22-[address] [facility] Comment on above: Performed By: #### Ap G3, BMP3 ####The performing lab is in the report. Creatinine mass conc 0.78 mg/dL Normal 0.52-1.25 [facility] Comment on above: Performed By: #### Ap G3, BMP3 ####The performing lab is in the report. GFR/1.73 sq M predicted among blacks MDRD vol rate/area (S/P/Bld) mL/min/{1.73_m2} Normal >60 [facility] Comment on above: Performed By: #### M G3, BMP3 ####The performing lab is in the report. GFR/1.73 sq M predicted among non-blacks MDRD vol rate/area (S/P/Bld) mL/min/{1.73_m2} Normal >60 [facility] Comment on above: Result Comment: Sour ce- MDRD equation with creatinine calibration to IDMS(NKDEP) eGFR not recommended for drug dose adjustment Performed By: #### Ap G3, BMP3 ####The performing lab is in the report. Urea nitrogen mass conc 15 mg/dL Normal 7-20 [facility] Comment on above: Performed By: #### Ap G3, BMP3 ####The performing lab is in the report. Chloride molar conc 104 mmol/L Normal 98-107 [facility] Comment on above: Performed By: #### M G3, BMP3 ####The performing lab is in the report. Potassium molar conc 3.5 mmol/L Normal 3.5-5.1 [facility] Comment on above: Performed By: #### M G3, BMP3 ####The performing lab is in the report. Sodium molar conc 137 mmol/L Normal 137-145 [facility] Comment on above: Performed By: #### Ap G3, BMP3 ####The performing lab is in the report. Glucose,Bedsideon 10-21-2017 Glucose mass conc 93 mg/dL Normal 70-100 [facility] Comment on above: Result Comment: Test performed by glucose meter. Results may be 10%-15% lowerthan serum/plasma values. (CLIA ID [id number]) Performed By: #### M G3, BMP3 ####The performing lab is in the report. Glucose mass conc 137 mg/dL High 70-100 [facility] Comment on above: Result Comment: Test performed by glucose meter. Results may be 10%-15% lowerthan serum/plasma values. (CLIA ID [id number]) Performed By: #### M G3, BMP3 ####The performing lab is in the report. Glucose mass conc 91 mg/dL Normal 70-100 [facility] Comment on above: Result Comment: Test performed by glucose meter. Results may be 10%-15% lowerthan serum/plasma values. (CLIA ID [id number]) Performed By: #### M G3, BMP3 ####The performing lab is in the report. Glucose mass conc 99 mg/dL Normal 70-100 [facility] Comment on above: Result Comment: Test performed by glucose meter. Results may be 10%-15% lowerthan serum/plasma values. (CLIA ID [id number]) Performed By: #### M G3, BMP3 ####The performing lab is in the report. Glucose mass conc 93 mg/dL Normal 70-100 [facility] Comment on above: Result Comment: Test performed by glucose meter. Results may be 10%-15% lowerthan serum/plasma values. (CLIA ID [id number]) Performed By: #### M G3, BMP3 ####The performing lab is in the report. Hemogram w/ Autodiffon 10-21 Abs Baso Cnt 0.0 10*3/uL Normal 0.0-0.2 [facility] Comment on above: Performed By: #### M G3, BMP3 ####The performing lab is in the report. Abs Neutrophile Cnt 3.4 10*3/uL Normal 1.8-7.0 [facility] Comment on above: Performed By: #### M G3, BMP3 ####The performing lab is in the report. Basophils/100 WBC Auto (Bld) 0.8 % Normal 0.0-2.0 [facility] Comment on above: Performed By: #### M G3, BMP3 ####The performing lab is in the report. Eosinophils Auto #/vol (Bld) 0.1 10*3/uL Normal 0.0-0.5 [facility] Comment on above: Performed By: #### M G3, BMP3 ####The performing lab is in the report. Eosinophils/100 WBC Auto (Bld) 2.3 % Normal 1.0-6.0 [facility] Comment on above: Performed By: #### M G3, BMP3 ####The performing lab is in the report. Erythrocyte distribution width Auto Ratio (RBC) 15.6 % High 11.5-14.5 [facility] Comment on above: Performed By: #### Ap G3, BMP3 ####The performing lab is in the report. Granulocytes/100 WBC (Bld) 68.1 % Normal 40.0-80.0 [facility] Comment on above: Performed By: #### M G3, BMP3 ####The performing lab is in the report. Hematocrit Auto Volume Fraction (Bld) 28.9 % Low 40.0-52.0 [facility] Comment on above: Performed By: #### Ap G3, BMP3 ####The performing lab is in the report. Hemoglobin mass conc (Bld) 9.5 g/dL Low 13.0-18.0 [facility] Comment on above: Performed By: #### Ap G3, BMP3 ####The performing lab is in the report. Lymphocytes Auto #/vol (Bld) 0.8 10*3/uL Low 1.0-4.3 [facility] Comment on above: Performed By: #### M G3, BMP3 ####The performing lab is in the report. Lymphocytes/100 WBC Auto (Bld) 16.5 % Low 20.0-40.0 [facility] Comment on above: Performed By: #### Ap G3, BMP3 ####The performing lab is in the report. MCH Auto Entitic mass (RBC) 27.7 pg Normal 26.0-34.0 [facility] Comment on above: Performed By: #### M G3, BMP3 ####The performing lab is in the report. MCHC Auto mass conc (RBC) 32.8 % Normal 32.0-36.0 [facility] Comment on above: Performed By: #### Ap G3, BMP3 ####The performing lab is in the report. MCV Auto Entitic volume (RBC) 84.4 fL Normal 80.0-98.0 [facility] Comment on above: Performed By: #### Ap G3, BMP3 ####The performing lab is in the report. Monocytes Auto #/vol (Bld) 0.6 10*3/uL Normal 0.0-0.8 [facility] Comment on above: Performed By: #### M G3, BMP3 ####The performing lab is in the report. Monocytes/100 WBC Auto (Bld) 12.3 % High 2.0-10.0 [facility] Comment on above: Performed By: #### Ap G3, BMP3 ####The performing lab is in the report. Platelet mean volume Auto Entitic volume (Bld) 8.8 fL Normal 7.4-10.4 [facility] Comment on above: Performed By: #### Ap G3, BMP3 ####The performing lab is in the report. Platelets Auto #/vol (Bld) 290 10*3/uL Normal 140-440 [facility] Comment on above: Performed By: #### Ap G3, BMP3 ####The performing lab is in the report. RBC Auto #/vol (Bld) 3.43 10*6/uL Low 4.40-5.90 [facility] Comment on above: Performed By: #### Ap G3, BMP3 ####The performing lab is in the report. WBC Auto #/vol (Bld) 5.0 10*3/uL Normal 3.6-10.7 [facility] Comment on above: Performed By: #### Ap G3, BMP3 ####The performing lab is in the report. Basic Metabolic Panelon 07-0 Anion gap 3 molar conc 5 Normal [facility] Comment on above: Performed By: #### H EMDF, APTT, HA1C2 ####The performing lab is in the report. Calcium mass conc 9.2 mg/dL Normal 8.4-10.4 [facility] Comment on above: Performed By: #### H EMDF, APTT, HA1C2 ####The performing lab is in the report. CO2 molar conc 30 mmol/L Normal 22-[address] [facility] Comment on above: Performed By: #### H EMDF, APTT, HA1C2 ####The performing lab is in the report. Glucose mass conc 239 mg/dL High 70-100 [facility] Comment on above: Performed By: #### H EMDF, APTT, HA1C2 ####The performing lab is in the report. Urea nitrogen mass conc 13 mg/dL Normal 7-20 [facility] Comment on above: Performed By: #### H EMDF, APTT, HA1C2 ####The performing lab is in the report. Creatinine mass conc 0.72 mg/dL Normal 0.52-1.25 [facility] Comment on above: Performed By: #### H EMDF, APTT, HA1C2 ####The performing lab is in the report. GFR/1.73 sq M predicted among blacks MDRD vol rate/area (S/P/Bld) mL/min/{1.73_m2} Normal >60 [facility] Comment on above: Performed By: #### H EMDF, APTT, HA1C2 ####The performing lab is in the report. GFR/1.73 sq M predicted among non-blacks MDRD vol rate/area (S/P/Bld) mL/min/{1.73_m2} Normal >60 [facility] Comment on above: Result Comment: Sour ce- MDRD equation with creatinine calibration to IDMS(NKDEP) eGFR not recommended for drug dose adjustment Performed By: #### H EMDF, APTT, HA1C2 ####The performing lab is in the report. Potassium molar conc 3.9 mmol/L Normal 3.5-5.1 [facility] Comment on above: Performed By: #### H EMDF, APTT, HA1C2 ####The performing lab is in the report. Chloride molar conc 102 mmol/L Normal 98-107 [facility] Comment on above: Performed By: #### H EMDF, APTT, HA1C2 ####The performing lab is in the report. Sodium molar conc 137 mmol/L Normal 137-145 [facility] Comment on above: Performed By: [...] 1 S Pip/Tazobactam(MARTITA) <= 4 S Normal [facility] Comment on above: Order Comment: or co llected Performed By: #### H EMDF, APTT, HA1C2 ####The performing lab is in the report. Glucose,Bedsideon 10-20-2017 Glucose mass conc 108 mg/dL High 70-100 [facility] Comment on above: Result Comment: Test performed by glucose meter. Results may be 10%-15% lowerthan serum/plasma values. (CLIA ID [id number]) Performed By: #### M G3, BMP3 ####The performing lab is in the report. Glucose mass conc 131 mg/dL High 70-100 [facility] Comment on above: Result Comment: Test performed by glucose meter. Results may be 10%-15% lowerthan serum/plasma values. (CLIA ID [id number]) Performed By: #### M G3, BMP3 ####The performing lab is in the report. Glucose mass conc 141 mg/dL High 70-100 [facility] Comment on above: Result Comment: Test performed by glucose meter. Results may be 10%-15% lowerthan serum/plasma values. (CLIA ID [id number]) Performed By: #### M G3, BMP3 ####The performing lab is in the report. Glucose mass conc 134 mg/dL High 70-100 [facility] Comment on above: Result Comment: Test performed by glucose meter. Results may be 10%-15% lowerthan serum/plasma values. (CLIA ID [id number]) Performed By: #### H EMDF, APTT, HA1C2 ####The performing lab is in the report. Hemoglobin A1Con 10-20-2017 Glucose mass conc 157 mg/dL Normal [facility] Comment on above: Performed By: #### H EMDF, APTT, HA1C2 ####The performing lab is in the report. Hemoglobin A1c/Hemoglobin.total mass fraction (Bld) 7.1 % High 4.0-5.7 [facility] Comment on above: Result Comment: --Hg bA1C levels may not be accurate in patients who haverenal disease, received recent blood transfusions, are anemic,or who have dyshemoglobinemia. Performed By: #### H EMDF, APTT, HA1C2 ####The performing lab is in the report. Hemogram w/ Autodiffon 10-20 Abs Baso Cnt 0.0 10*3/uL Normal 0.0-0.2 [facility] Comment on above: Performed By: #### H EMDF, APTT, HA1C2 ####The performing lab is in the report. Abs Neutrophile Cnt 3.6 10*3/uL Normal 1.8-7.0 [facility] Comment on above: Performed By: #### H EMDF, APTT, HA1C2 ####The performing lab is in the report. Basophils/100 WBC Auto (Bld) 0.7 % Normal 0.0-2.0 [facility] Comment on above: Performed By: #### H EMDF, APTT, HA1C2 ####The performing lab is in the report. Eosinophils Auto #/vol (Bld) 0.1 10*3/uL Normal 0.0-0.5 [facility] Comment on above: Performed By: #### H EMDF, APTT, HA1C2 ####The performing lab is in the report. Eosinophils/100 WBC Auto (Bld) 2.0 % Normal 1.0-6.0 [facility] Comment on above: Performed By: #### H EMDF, APTT, HA1C2 ####The performing lab is in the report. Erythrocyte distribution width Auto Ratio (RBC) 15.9 % High 11.5-14.5 [facility] Comment on above: Performed By: #### H EMDF, APTT, HA1C2 ####The performing lab is in the report. Granulocytes/100 WBC (Bld) 71.6 % Normal 40.0-80.0 [facility] Comment on above: Performed By: #### H EMDF, APTT, HA1C2 ####The performing lab is in the report. Hematocrit Auto Volume Fraction (Bld) 28.0 % Low 40.0-52.0 [facility] Comment on above: Performed By: #### H EMDF, APTT, HA1C2 ####The performing lab is in the report. Hemoglobin mass conc (Bld) 9.2 g/dL Low 13.0-18.0 [facility] Comment on above: Performed By: #### H EMDF, APTT, HA1C2 ####The performing lab is in the report. Lymphocytes Auto #/vol (Bld) 0.7 10*3/uL Low 1.0-4.3 [facility] Comment on above: Performed By: #### H EMDF, APTT, HA1C2 ####The performing lab is in the report. Lymphocytes/100 WBC Auto (Bld) 13.8 % Low 20.0-40.0 [facility] Comment on above: Performed By: #### H EMDF, APTT, HA1C2 ####The performing lab is in the report. MCH Auto Entitic mass (RBC) 27.8 pg Normal 26.0-34.0 [facility] Comment on above: Performed By: #### H EMDF, APTT, HA1C2 ####The performing lab is in the report. MCHC Auto mass conc (RBC) 32.9 % Normal 32.0-36.0 [facility] Comment on above: Performed By: #### H EMDF, APTT, HA1C2 ####The performing lab is in the report. MCV Auto Entitic volume (RBC) 84.5 fL Normal 80.0-98.0 [facility] Comment on above: Performed By: #### H EMDF, APTT, HA1C2 ####The performing lab is in the report. Monocytes Auto #/vol (Bld) 0.6 10*3/uL Normal 0.0-0.8 [facility] Comment on above: Performed By: #### H EMDF, APTT, HA1C2 ####The performing lab is in the report. Monocytes/100 WBC Auto (Bld) 11.9 % High 2.0-10.0 [facility] Comment on above: Performed By: #### H EMDF, APTT, HA1C2 ####The performing lab is in the report. Platelet mean volume Auto Entitic volume (Bld) 8.1 fL Normal 7.4-10.4 [facility] Comment on above: Performed By: #### H EMDF, APTT, HA1C2 ####The performing lab is in the report. Platelets Auto #/vol (Bld) 305 10*3/uL Normal 140-440 [facility] Comment on above: Performed By: #### H EMDF, APTT, HA1C2 ####The performing lab is in the report. RBC Auto #/vol (Bld) 3.32 10*6/uL Low 4.40-5.90 [facility] Comment on above: Performed By: #### H EMDF, APTT, HA1C2 ####The performing lab is in the report. WBC Auto #/vol (Bld) 5.1 10*3/uL Normal 3.6-10.7 [facility] Comment on above: Performed By: #### H EMDF, APTT, HA1C2 ####The performing lab is in the report. Basic Metabolic Panelon 07-0 Anion gap 3 molar conc 7 Normal [facility] Comment on above: Performed By: #### H EMDF, APTT, HA1C2 ####The performing lab is in the report. Calcium mass conc 9.4 mg/dL Normal 8.4-10.4 [facility] Comment on above: Performed By: #### H EMDF, APTT, HA1C2 ####The performing lab is in the report. CO2 molar conc 29 mmol/L Normal 22-[address] [facility] Comment on above: Performed By: #### H EMDF, APTT, HA1C2 ####The performing lab is in the report. Glucose mass conc 110 mg/dL High 70-100 [facility] Comment on above: Performed By: #### H EMDF, APTT, HA1C2 ####The performing lab is in the report. Urea nitrogen mass conc 12 mg/dL Normal 7-20 [facility] Comment on above: Performed By: #### H EMDF, APTT, HA1C2 ####The performing lab is in the report. Creatinine mass conc 0.73 mg/dL Normal 0.52-1.25 [facility] Comment on above: Performed By: #### H EMDF, APTT, HA1C2 ####The performing lab is in the report. GFR/1.73 sq M predicted among blacks MDRD vol rate/area (S/P/Bld) mL/min/{1.73_m2} Normal >60 [facility] Comment on above: Performed By: #### H EMDF, APTT, HA1C2 ####The performing lab is in the report. GFR/1.73 sq M predicted among non-blacks MDRD vol rate/area (S/P/Bld) mL/min/{1.73_m2} Normal >60 [facility] Comment on above: Result Comment: Sour ce- MDRD equation with creatinine calibration to IDMS(NKDEP) eGFR not recommended for drug dose adjustment Performed By: #### H EMDF, APTT, HA1C2 ####The performing lab is in the report. Potassium molar conc 3.9 mmol/L Normal 3.5-5.1 [facility] Comment on above: Performed By: #### H EMDF, APTT, HA1C2 ####The performing lab is in the report. Sodium molar conc 137 mmol/L Normal 137-145 [facility] Comment on above: Performed By: #### H EMDF, APTT, HA1C2 ####The performing lab is in the report. Chloride molar conc 102 mmol/L Normal 98-107 [facility] Comment on above: Performed By: #### H EMDF, APTT, HA1C2 ####The performing lab is in the report. CR Chest Portableon 10-20-19 CR Chest Portable Patient Name: JAMES REYES Diagnostic Radiology Exam Date/Time 10/19/2017 18:16:20 EDT Exam CR Chest Portable Ordering Physician JACQUES WADE Accession Number [id number] CPT4 Codes 00876 () Reason For Exam picc Report PORTABLE [...] Time: 10/19/2017 6:18 pm Signed by: MD GRANT, JARET Transcribed Date and Time: 10/19/2017 6:17 Normal [facility] Glucose,Bedsideon 10-19-2017 Glucose mass conc 151 mg/dL High 70-100 [facility] Comment on above: Result Comment: Test performed by glucose meter. Results may be 10%-15% lowerthan serum/plasma values. (CLIA ID [id number]) Performed By: #### H EMDF, APTT, HA1C2 ####The performing lab is in the report. Glucose mass conc 115 mg/dL High 70-100 [facility] Comment on above: Result Comment: Test performed by glucose meter. Results may be 10%-15% lowerthan serum/plasma values. (CLIA ID [id number]) Performed By: #### H EMDF, APTT, HA1C2 ####The performing lab is in the report. Glucose mass conc 162 mg/dL High 70-100 [facility] Comment on above: Result Comment: Test performed by glucose meter. Results may be 10%-15% lowerthan serum/plasma values. (CLIA ID [id number]) Performed By: #### H EMDF, APTT, HA1C2 ####The performing lab is in the report. Glucose mass conc 142 mg/dL High 70-100 [facility] Comment on above: Result Comment: Test performed by glucose meter. Results may be 10%-15% lowerthan serum/plasma values. (CLIA ID [id number]) Performed By: #### H EMDF, APTT, HA1C2 ####The performing lab is in the report. Hemogram w/ Autodiffon 10-19 Abs Baso Cnt 0.0 10*3/uL Normal 0.0-0.2 [facility] Comment on above: Performed By: #### H EMDF, APTT, HA1C2 ####The performing lab is in the report. Abs Neutrophile Cnt 3.1 10*3/uL Normal 1.8-7.0 [facility] Comment on above: Performed By: #### H EMDF, APTT, HA1C2 ####The performing lab is in the report. Basophils/100 WBC Auto (Bld) 0.8 % Normal 0.0-2.0 [facility] Comment on above: Performed By: #### H EMDF, APTT, HA1C2 ####The performing lab is in the report. Eosinophils Auto #/vol (Bld) 0.1 10*3/uL Normal 0.0-0.5 [facility] Comment on above: Performed By: #### H EMDF, APTT, HA1C2 ####The performing lab is in the report. Eosinophils/100 WBC Auto (Bld) 2.1 % Normal 1.0-6.0 [facility] Comment on above: Performed By: #### H EMDF, APTT, HA1C2 ####The performing lab is in the report. Erythrocyte distribution width Auto Ratio (RBC) 15.7 % High 11.5-14.5 [facility] Comment on above: Performed By: #### H EMDF, APTT, HA1C2 ####The performing lab is in the report. Granulocytes/100 WBC (Bld) 67.4 % Normal 40.0-80.0 [facility] Comment on above: Performed By: #### H EMDF, APTT, HA1C2 ####The performing lab is in the report. Hematocrit Auto Volume Fraction (Bld) 29.9 % Low 40.0-52.0 [facility] Comment on above: Performed By: #### H EMDF, APTT, HA1C2 ####The performing lab is in the report. Hemoglobin mass conc (Bld) 9.8 g/dL Low 13.0-18.0 [facility] Comment on above: Performed By: #### H EMDF, APTT, HA1C2 ####The performing lab is in the report. Lymphocytes Auto #/vol (Bld) 0.8 10*3/uL Low 1.0-4.3 [facility] Comment on above: Performed By: #### H EMDF, APTT, HA1C2 ####The performing lab is in the report. Lymphocytes/100 WBC Auto (Bld) 17.4 % Low 20.0-40.0 [facility] Comment on above: Performed By: #### H EMDF, APTT, HA1C2 ####The performing lab is in the report. MCH Auto Entitic mass (RBC) 27.6 pg Normal 26.0-34.0 [facility] Comment on above: Performed By: #### H EMDF, APTT, HA1C2 ####The performing lab is in the report. MCHC Auto mass conc (RBC) 32.8 % Normal 32.0-36.0 [facility] Comment on above: Performed By: #### H EMDF, APTT, HA1C2 ####The performing lab is in the report. MCV Auto Entitic volume (RBC) 84.2 fL Normal 80.0-98.0 [facility] Comment on above: Performed By: #### H EMDF, APTT, HA1C2 ####The performing lab is in the report. Monocytes Auto #/vol (Bld) 0.6 10*3/uL Normal 0.0-0.8 [facility] Comment on above: Performed By: #### H EMDF, APTT, HA1C2 ####The performing lab is in the report. Monocytes/100 WBC Auto (Bld) 12.3 % High 2.0-10.0 [facility] Comment on above: Performed By: #### H EMDF, APTT, HA1C2 ####The performing lab is in the report. Platelet mean volume Auto Entitic volume (Bld) 7.9 fL Normal 7.4-10.4 [facility] Comment on above: Performed By: #### H EMDF, APTT, HA1C2 ####The performing lab is in the report. Platelets Auto #/vol (Bld) 367 10*3/uL Normal 140-440 [facility] Comment on above: Performed By: #### H EMDF, APTT, HA1C2 ####The performing lab is in the report. RBC Auto #/vol (Bld) 3.55 10*6/uL Low 4.40-5.90 [facility] Comment on above: Performed By: #### H EMDF, APTT, HA1C2 ####The performing lab is in the report. WBC Auto #/vol (Bld) 4.7 10*3/uL Normal 3.6-10.7 [facility] Comment on above: Performed By: #### H EMDF, APTT, HA1C2 ####The performing lab is in the report. Glucose,Bedsideon 10-18-2017 Glucose mass conc 140 mg/dL High 70-100 [facility] Comment on above: Result Comment: Test performed by glucose meter. Results may be 10%-15% lowerthan serum/plasma values. (CLIA ID [id number]) Performed By: #### H EMDF, APTT, HA1C2 ####The performing lab is in the report. Glucose mass conc 133 mg/dL High 70-100 [facility] Comment on above: Result Comment: Conf irmation Drawn;Caregiver Notified;Test performed by glucose meter. Results may be 10%-15% lowerthan serum/plasma values. (CLIA ID [id number]) Performed By: #### H EMDF, APTT, HA1C2 ####The performing lab is in the report. Glucose mass conc 136 mg/dL High 70-100 [facility] Comment on above: Result Comment: Test performed by glucose meter. Results may be 10%-15% lowerthan serum/plasma values. (CLIA ID [id number]) Performed By: #### H EMDF, APTT, HA1C2 ####The performing lab is in the report. Glucose mass conc 139 mg/dL High 70-100 [facility] Comment on above: Result Comment: Test performed by glucose meter. Results may be 10%-15% lowerthan serum/plasma values. (CLIA ID [id number]) Performed By: #### H EMDF, APTT, HA1C2 ####The performing lab is in the report. Glucose mass conc 136 mg/dL High 70-100 [facility] Comment on above: Result Comment: Test performed by glucose meter. Results may be 10%-15% lowerthan serum/plasma values. (CLIA ID [id number]) Performed By: #### H EMDF, APTT, HA1C2 ####The performing lab is in the report. Glucose mass conc 116 mg/dL High 70-100 [facility] Comment on above: Result Comment: Test performed by glucose meter. Results may be 10%-15% lowerthan serum/plasma values. (CLIA ID [id number]) Performed By: #### H EMDF, APTT, HA1C2 ####The performing lab is in the report. Basic Metabolic Panelon 07-0 Anion gap 3 molar conc 7 Normal [facility] Comment on above: Performed By: #### H EMDF, APTT, HA1C2 ####The performing lab is in the report. Calcium mass conc 9.2 mg/dL Normal 8.4-10.4 [facility] Comment on above: Performed By: #### H EMDF, APTT, HA1C2 ####The performing lab is in the report. CO2 molar conc 28 mmol/L Normal 22-[address] [facility] Comment on above: Performed By: #### H EMDF, APTT, HA1C2 ####The performing lab is in the report. Glucose mass conc 182 mg/dL High 70-100 [facility] Comment on above: Performed By: #### H EMDF, APTT, HA1C2 ####The performing lab is in the report. Urea nitrogen mass conc 16 mg/dL Normal 7-20 [facility] Comment on above: Performed By: #### H EMDF, APTT, HA1C2 ####The performing lab is in the report. Creatinine mass conc 0.77 mg/dL Normal 0.52-1.25 [facility] Comment on above: Performed By: #### H EMDF, APTT, HA1C2 ####The performing lab is in the report. GFR/1.73 sq M predicted among blacks MDRD vol rate/area (S/P/Bld) mL/min/{1.73_m2} Normal >60 [facility] Comment on above: Performed By: #### H EMDF, APTT, HA1C2 ####The performing lab is in the report. GFR/1.73 sq M predicted among non-blacks MDRD vol rate/area (S/P/Bld) mL/min/{1.73_m2} Normal >60 [facility] Comment on above: Result Comment: Sour ce- MDRD equation with creatinine calibration to IDMS(NKDEP) eGFR not recommended for drug dose adjustment Performed By: #### H EMDF, APTT, HA1C2 ####The performing lab is in the report. Potassium molar conc 4.9 mmol/L Normal 3.5-5.1 [facility] Comment on above: Performed By: #### H EMDF, APTT, HA1C2 ####The performing lab is in the report. Sodium molar conc 137 mmol/L Normal 137-145 [facility] Comment on above: Performed By: #### H EMDF, APTT, HA1C2 ####The performing lab is in the report. Chloride molar conc 102 mmol/L Normal 98-107 [facility] Comment on above: Performed By: #### H EMDF, APTT, HA1C2 ####The performing lab is in the report. Glucose,Bedsideon 10-17-2017 Glucose mass conc 117 mg/dL High 70-100 [facility] Comment on above: Result Comment: Test performed by glucose meter. Results may be 10%-15% lowerthan serum/plasma values. (CLIA ID [id number]) Performed By: #### H EMDF, APTT, HA1C2 ####The performing lab is in the report. Glucose mass conc 170 mg/dL High 70-100 [facility] Comment on above: Result Comment: Test performed by glucose meter. Results may be 10%-15% lowerthan serum/plasma values. (CLIA ID [id number]) Performed By: #### H EMDF, APTT, HA1C2 ####The performing lab is in the report. Glucose mass conc 180 mg/dL High 70-100 [facility] Comment on above: Result Comment: Test performed by glucose meter. Results may be 10%-15% lowerthan serum/plasma values. (CLIA ID [id number]) Performed By: #### H EMDF, APTT, HA1C2 ####The performing lab is in the report. Hemogramon 10-17-2017 Erythrocyte distribution width Auto Ratio (RBC) 15.5 % High 11.5-14.5 [facility] Comment on above: Performed By: #### H EMDF, APTT, HA1C2 ####The performing lab is in the report. Hematocrit Auto Volume Fraction (Bld) 29.0 % Low 40.0-52.0 [facility] Comment on above: Performed By: #### H EMDF, APTT, HA1C2 ####The performing lab is in the report. Hemoglobin mass conc (Bld) 9.3 g/dL Low 13.0-18.0 [facility] Comment on above: Performed By: #### H EMDF, APTT, HA1C2 ####The performing lab is in the report. MCH Auto Entitic mass (RBC) 27.2 pg Normal 26.0-34.0 [facility] Comment on above: Performed By: #### H EMDF, APTT, HA1C2 ####The performing lab is in the report. MCHC Auto mass conc (RBC) 31.9 % Low 32.0-36.0 [facility] Comment on above: Performed By: #### H EMDF, APTT, HA1C2 ####The performing lab is in the report. MCV Auto Entitic volume (RBC) 85.2 fL Normal 80.0-98.0 [facility] Comment on above: Performed By: #### H EMDF, APTT, HA1C2 ####The performing lab is in the report. Platelet mean volume Auto Entitic volume (Bld) 8.5 fL Normal 7.4-10.4 [facility] Comment on above: Performed By: #### H EMDF, APTT, HA1C2 ####The performing lab is in the report. Platelets Auto #/vol (Bld) 364 10*3/uL Normal 140-440 [facility] Comment on above: Performed By: #### H EMDF, APTT, HA1C2 ####The performing lab is in the report. RBC Auto #/vol (Bld) 3.40 10*6/uL Low 4.40-5.90 [facility] Comment on above: Performed By: #### H EMDF, APTT, HA1C2 ####The performing lab is in the report. WBC Auto #/vol (Bld) 4.3 10*3/uL Normal 3.6-10.7 [facility] Comment on above: Performed By: #### H EMDF, APTT, HA1C2 ####The performing lab is in the report. STAIN ACID-FASTon 10-17-2017 STAIN ACID-FAST STAIN ACID-FAST --> Status: F No acid-fast bacilli seen in smear. - Method: Fluorescent Stain - Method: Fluorescent Stain Normal [facility] Comment on above: Order Comment: or co llected Performed By: #### H EMDF, APTT, HA1C2 ####The performing lab is in the report. STAIN FUNGUSon 10-17-2017 STAIN FUNGUS STAIN FUNGUS --> Status: F No fungal elements seen. - Method: Direct Exam by Calcofluor Stain - Method: Direct Exam by Calcofluor Stain Normal [facility] Comment on above: Order Comment: or co llected Performed By: #### H EMDF, APTT, HA1C2 ####The performing lab is in the report. Glucose,Bedsideon 10-16-2017 Glucose mass conc 260 mg/dL High 70-100 [facility] Comment on above: Result Comment: Test performed by glucose meter. Results may be 10%-15% lowerthan serum/plasma values. (CLIA ID [id number]) Performed By: #### H EMDF, APTT, HA1C2 ####The performing lab is in the report. Glucose mass conc 157 mg/dL High 70-100 [facility] Comment on above: Result Comment: Test performed by glucose meter. Results may be 10%-15% lowerthan serum/plasma values. (CLIA ID [id number]) Performed By: #### H EMDF, MG3, BMP3 ####The performing lab is in the report. Glucose mass conc 127 mg/dL High 70-100 [facility] Comment on above: Result Comment: Test performed by glucose meter. Results may be 10%-15% lowerthan serum/plasma values. (CLIA ID [id number]) Performed By: #### H EMDF, MG3, BMP3 ####The performing lab is in the report. Glucose mass conc 149 mg/dL High 70-100 [facility] Comment on above: Result Comment: Test performed by glucose meter. Results may be 10%-15% lowerthan serum/plasma values. (CLIA ID [id number]) Performed By: #### H EMDF, MG3, BMP3 ####The performing lab is in the report. Surgical Pathologyon 018 Surgical Pathology [id number] [facility] PATHOLOGY AND LABORATORY MEDICINE [address] [place] [address] FINAL SURGICAL PATHOLOGY REPORT NAME: JAMES REYES .O.B.: 1955 62 Y M [facility] NO.: [id number]: [id number] PROCEDURE 10/16/2017 DATE:SURGEON: STACEY CLEMONS M.D. RECEIVED 10/17/2017 DATE:ATTENDING: STACEY CLEMONS M.D. REPORT DATE: 10/19/2017 COPIES TO: DIAGNOSIS:TISSUE, SUPERFICIAL STERNAL WOUND, EXCISION - FIBROADIPOSE TISSUE WITHACUTE INFLAMMATION AND FAT NECROSIS.NPL/NeldaRW ALONSO YIP MD CLINICAL INFORMATION: Superficial sternal wound dehiscenceSPECIMEN: WOUND GROSS DESCRIPTION:"Superficia l sternal wound debridement, fat necrosis"Received in formalin are fragments of rubbery, yellow-escobar tissueaggregating to 4 x 3 x 1 cm. Cut surfaces are yellow-garcia to escobar incolor. No areas of hemorrhage are identified. Some areas appearsomewhat friable. Random sections are submitted in a single cassette.(bits ss, 1) [id number]: The following statement applies to allimmunohistochemistry , in situ hybridization, molecular studies, andimmunofluorescence testing.The use of one or more reagents in the above tests is regulated as ananalyte specific reagent (ASR). These tests were developed and theirperformance characteristics determined by the clinical laboratories [facility]. They have not been cleared by [...] false negativity on decalcified specimens.Professional Performing Location: [address] [address]. DEPARTMENT OF PATHOLOGY AND LABORATORY MEDICINE [place], [place] [address] Normal [facility] Basic Metabolic Panelon 05-0 2-2018 Calcium mass conc 9.1 mg/dL Normal 8.4-10.2 [facility] Comment on above: Performed By: #### H EMDF, MG3, BMP3 ####The performing lab is in the report. Anion gap 3 molar conc 7 mmol/L Normal [facility] Comment on above: Performed By: #### H EMDF, MG3, BMP3 ####The performing lab is in the report. CO2 molar conc 32 mmol/L High 22-[address] [facility] Comment on above: Performed By: #### H EMDF, MG3, BMP3 ####The performing lab is in the report. Creatinine mass conc 1.11 mg/dL Normal 0.52-1.25 [facility] Comment on above: Performed By: #### H EMDF, MG3, BMP3 ####The performing lab is in the report. GFR/1.73 sq M predicted among blacks MDRD vol rate/area (S/P/Bld) mL/min/{1.73_m2} Normal >60 [facility] Comment on above: Performed By: #### H EMDF, MG3, BMP3 ####The performing lab is in the report. GFR/1.73 sq M predicted among non-blacks MDRD vol rate/area (S/P/Bld) mL/min/{1.73_m2} Normal >60 [facility] Comment on above: Result Comment: Sour ce- MDRD equation with creatinine calibration to IDMS(NKDEP)eGFR not recommended for drug dose adjustment Performed By: #### H EMDF, MG3, BMP3 ####The performing lab is in the report. Glucose mass conc 47 mg/dL Low 70-100 [facility] Comment on above: Performed By: #### H EMDF, MG3, BMP3 ####The performing lab is in the report. Urea nitrogen mass conc 16 mg/dL Normal 7-20 [facility] Comment on above: Performed By: #### H EMDF, MG3, BMP3 ####The performing lab is in the report. Chloride molar conc 99 mmol/L Normal 98-107 [facility] Comment on above: Performed By: #### H EMDF, MG3, BMP3 ####The performing lab is in the report. Potassium molar conc 3.4 mmol/L Low 3.5-5.1 [facility] Comment on above: Performed By: #### H EMDF, MG3, BMP3 ####The performing lab is in the report. Sodium molar conc 137 mmol/L Normal 137-145 [facility] Comment on above: Performed By: #### H EMDF, MG3, BMP3 ####The performing lab is in the report. CR Chest Portableon 08-17-19 18 CR Chest Portable Patient Name: JAMES REYES Diagnostic Radiology Exam Date/Time 08/16/2017 05:45:45 EDT Exam CR Chest Portable Ordering Physician STACEY CLEMONS Accession Number [id number] CPT4 Codes 12496 () Reason For Exam Post op open heart surgery Report CLINICAL INFORMATION: Status post open heart surgery. CHEST X-RAY, PORTABLE, 0531 hours: An AP portable view is compared to the prior examination of the previous day. The examination is underpenetrated. There are median sternotomy wires from prior thoracic surgery. A right internal jugular Index-Ivelisse introducer sheath is unchanged in position. The [...] Transcribed Date and Time: 08/16/2017 7:48 Normal [facility] Glucose,Bedsideon 08-16-2017 Glucose mass conc 201 mg/dL High 70-100 [facility] Comment on above: Result Comment: Test performed by glucose meter. Results may be 10%-15% lowerthan serum/plasma values. (CLIA ID [id number]) Performed By: #### B GLU ####The performing lab is in the report. Hemogramon 08-16-2017 Erythrocyte distribution width Auto Ratio (RBC) 14.5 % Normal 11.5-14.5 [facility] Comment on above: Performed By: #### H EMDF, MG3, BMP3 ####The performing lab is in the report. Hematocrit Auto Volume Fraction (Bld) 26.2 % Low 40.0-52.0 [facility] Comment on above: Performed By: #### H EMDF, MG3, BMP3 ####The performing lab is in the report. Hemoglobin mass conc (Bld) 8.6 g/dL Low 13.0-18.0 [facility] Comment on above: Performed By: #### H RAFAELF, MG3, BMP3 ####The performing lab is in the report. MCH Auto Entitic mass (RBC) 30.6 pg Normal 26.0-34.0 [facility] Comment on above: Performed By: #### H EMDF, MG3, BMP3 ####The performing lab is in the report. MCHC Auto mass conc (RBC) 32.7 % Normal 32.0-36.0 [facility] Comment on above: Performed By: #### H EMDF, MG3, BMP3 ####The performing lab is in the report. MCV Auto Entitic volume (RBC) 93.6 fL Normal 80.0-98.0 [facility] Comment on above: Performed By: #### H EMDF, MG3, BMP3 ####The performing lab is in the report. Platelet mean volume Auto Entitic volume (Bld) 8.5 fL Normal 7.4-10.4 [facility] Comment on above: Performed By: #### H EMDF, MG3, BMP3 ####The performing lab is in the report. Platelets Auto #/vol (Bld) 312 10*3/uL Normal 140-440 [facility] Comment on above: Performed By: #### H EMDF, MG3, BMP3 ####The performing lab is in the report. RBC Auto #/vol (Bld) 2.81 10*6/uL Low 4.40-5.90 [facility] Comment on above: Performed By: #### H EMDF, MG3, BMP3 ####The performing lab is in the report. WBC Auto #/vol (Bld) 4.8 10*3/uL Normal 3.6-10.7 [facility] Comment on above: Performed By: #### H EMDF, MG3, BMP3 ####The performing lab is in the report. Magnesiumon 08-16-2017 Magnesium mass conc 1.9 mg/dL Normal 1.6-2.3 [facility] Comment on above: Performed By: #### H EMDF, MG3, BMP3 ####The performing lab is in the report. Basic Metabolic Panelon Calcium mass conc 8.4 mg/dL Normal 8.4-10.2 [facility] Comment on above: Performed By: #### H EMDF, MG3, BMP3 ####The performing lab is in the report. Glucose mass conc 106 mg/dL High 70-100 [facility] Comment on above: Performed By: #### H EMDF, MG3, BMP3 ####The performing lab is in the report. Anion gap 3 molar conc 6 mmol/L Normal [facility] Comment on above: Performed By: #### H EMDF, MG3, BMP3 ####The performing lab is in the report. CO2 molar conc 27 mmol/L Normal 22-30 [facility] Comment on above: Performed By: #### H EMDF, MG3, BMP3 ####The performing lab is in the report. Creatinine mass conc 1.04 mg/dL Normal 0.52-1.25 [facility] Comment on above: Performed By: #### H EMDF, MG3, BMP3 ####The performing lab is in the report. GFR/1.73 sq M predicted among blacks MDRD vol rate/area (S/P/Bld) mL/min/{1.73_m2} Normal >60 [facility] Comment on above: Performed By: #### H EMDF, MG3, BMP3 ####The performing lab is in the report. GFR/1.73 sq M predicted among non-blacks MDRD vol rate/area (S/P/Bld) mL/min/{1.73_m2} Normal >60 [facility] Comment on above: Result Comment: Sour ce- MDRD equation with creatinine calibration to IDMS(NKDEP)eGFR not recommended for drug dose adjustment Performed By: #### H EMDF, MG3, BMP3 ####The performing lab is in the report. Urea nitrogen mass conc 19 mg/dL Normal 7-20 [facility] Comment on above: Performed By: #### H EMDF, MG3, BMP3 ####The performing lab is in the report. Chloride molar conc 102 mmol/L Normal 98-107 [facility] Comment on above: Performed By: #### H EMDF, MG3, BMP3 ####The performing lab is in the report. Potassium molar conc 4.4 mmol/L Normal 3.5-5.1 [facility] Comment on above: Performed By: #### H EMDF, MG3, BMP3 ####The performing lab is in the report. Sodium molar conc 135 mmol/L Low 137-145 [facility] Comment on above: Performed By: #### H EMDF, MG3, BMP3 ####The performing lab is in the report. CR Chest Portableon 08-16-19 18 CR Chest Portable Patient Name: JAMES REYES Diagnostic Radiology Exam Date/Time 08/15/2017 05:46:21 EDT Exam CR Chest Portable Ordering Physician STACEY CLEMONS Accession Number [id number] CPT4 Codes 98375 () Reason For Exam Post op open [...] Transcribed Date and Time: 08/15/2017 7:17 Normal [facility] Hemogramon 08-15-2017 Erythrocyte distribution width Auto Ratio (RBC) 14.6 % High 11.5-14.5 [facility] Comment on above: Performed By: #### H EMDF, MG3, BMP3 ####The performing lab is in the report. Hematocrit Auto Volume Fraction (Bld) 24.1 % Low 40.0-52.0 [facility] Comment on above: Performed By: #### H EMDF, MG3, BMP3 ####The performing lab is in the report. Hemoglobin mass conc (Bld) 7.8 g/dL Low 13.0-18.0 [facility] Comment on above: Performed By: #### H EMDF, MG3, BMP3 ####The performing lab is in the report. MCH Auto Entitic mass (RBC) 30.8 pg Normal 26.0-34.0 [facility] Comment on above: Performed By: #### H EMDF, MG3, BMP3 ####The performing lab is in the report. MCHC Auto mass conc (RBC) 32.3 % Normal 32.0-36.0 [facility] Comment on above: Performed By: #### H EMDF, MG3, BMP3 ####The performing lab is in the report. MCV Auto Entitic volume (RBC) 95.4 fL Normal 80.0-98.0 [facility] Comment on above: Performed By: #### H EMDF, MG3, BMP3 ####The performing lab is in the report. Platelet mean volume Auto Entitic volume (Bld) 9.1 fL Normal 7.4-10.4 [facility] Comment on above: Performed By: #### H EMDF, MG3, BMP3 ####The performing lab is in the report. Platelets Auto #/vol (Bld) 208 10*3/uL Normal 140-440 [facility] Comment on above: Performed By: #### H EMDF, MG3, BMP3 ####The performing lab is in the report. RBC Auto #/vol (Bld) 2.52 10*6/uL Low 4.40-5.90 [facility] Comment on above: Performed By: #### H EMDF, MG3, BMP3 ####The performing lab is in the report. WBC Auto #/vol (Bld) 5.0 10*3/uL Normal 3.6-10.7 [facility] Comment on above: Performed By: #### H EMDF, MG3, BMP3 ####The performing lab is in the report. Magnesiumon 08-15-2017 Magnesium mass conc 2.0 mg/dL Normal 1.6-2.3 [facility] Comment on above: Performed By: #### H EMDF, MG3, BMP3 ####The performing lab is in the report. Basic Metabolic Panelon 07-18 Anion gap 3 molar conc 7 mmol/L Normal [facility] Comment on above: Performed By: #### H EMDF, MG3, BMP3 ####The performing lab is in the report. Calcium mass conc 8.6 mg/dL Normal 8.4-10.2 [facility] Comment on above: Performed By: #### H EMDF, MG3, BMP3 ####The performing lab is in the report. CO2 molar conc 25 mmol/L Normal 22-30 [facility] Comment on above: Performed By: #### H EMDF, MG3, BMP3 ####The performing lab is in the report. Creatinine mass conc 1.01 mg/dL Normal 0.52-1.25 [facility] Comment on above: Performed By: #### H EMDF, MG3, BMP3 ####The performing lab is in the report. GFR/1.73 sq M predicted among blacks MDRD vol rate/area (S/P/Bld) mL/min/{1.73_m2} Normal >60 [facility] Comment on above: Performed By: #### H EMDF, MG3, BMP3 ####The performing lab is in the report. GFR/1.73 sq M predicted among non-blacks MDRD vol rate/area (S/P/Bld) mL/min/{1.73_m2} Normal >60 [facility] Comment on above: Result Comment: Sour ce- MDRD equation with creatinine calibration to IDMS(NKDEP)eGFR not recommended for drug dose adjustment Performed By: #### H EMDF, MG3, BMP3 ####The performing lab is in the report. Glucose mass conc 119 mg/dL High 70-100 [facility] Comment on above: Performed By: #### H EMDF, MG3, BMP3 ####The performing lab is in the report. Urea nitrogen mass conc 19 mg/dL Normal 7-20 [facility] Comment on above: Performed By: #### H EMDF, MG3, BMP3 ####The performing lab is in the report. Chloride molar conc 106 mmol/L Normal 98-107 [facility] Comment on above: Performed By: #### H EMDF, MG3, BMP3 ####The performing lab is in the report. Potassium molar conc 4.6 mmol/L Normal 3.5-5.1 [facility] Comment on above: Performed By: #### H EMDF, MG3, BMP3 ####The performing lab is in the report. Sodium molar conc 138 mmol/L Normal 137-145 [facility] Comment on above: Performed By: #### H EMDF, MG3, BMP3 ####The performing lab is in the report. CR Chest Portableon 08-15-19 18 CR Chest Portable Patient Name: JAMES REYES [facility]: [id number] Diagnostic Radiology Exam Date/Time 08/14/2017 06:57:00 EDT Exam CR Chest Portable Ordering Physician STACEY CLEMONS Accession Number [id number] CPT4 Codes 46011 () Reason For Exam Post op open [...] Transcribed Date and Time: 08/14/2017 5:59 Normal [facility] Hemogramon 08-14-2017 Erythrocyte distribution width Auto Ratio (RBC) 14.9 % High 11.5-14.5 [facility] Comment on above: Performed By: #### H MELANIE, MG3, BMP3 ####The performing lab is in the report. Hematocrit Auto Volume Fraction (Bld) 25.3 % Low 40.0-52.0 [facility] Comment on above: Performed By: #### H RAFAELF, MG3, BMP3 ####The performing lab is in the report. Hemoglobin mass conc (Bld) 8.4 g/dL Low 13.0-18.0 [facility] Comment on above: Performed By: #### H EMDF, MG3, BMP3 ####The performing lab is in the report. MCH Auto Entitic mass (RBC) 31.2 pg Normal 26.0-34.0 [facility] Comment on above: Performed By: #### H EMDF, MG3, BMP3 ####The performing lab is in the report. MCHC Auto mass conc (RBC) 33.0 % Normal 32.0-36.0 [facility] Comment on above: Performed By: #### H EMDF, MG3, BMP3 ####The performing lab is in the report. MCV Auto Entitic volume (RBC) 94.5 fL Normal 80.0-98.0 [facility] Comment on above: Performed By: #### H EMDF, MG3, BMP3 ####The performing lab is in the report. Platelet mean volume Auto Entitic volume (Bld) 9.0 fL Normal 7.4-10.4 [facility] Comment on above: Performed By: #### H EMDF, MG3, BMP3 ####The performing lab is in the report. Platelets Auto #/vol (Bld) 216 10*3/uL Normal 140-440 [facility] Comment on above: Performed By: #### H EMDF, MG3, BMP3 ####The performing lab is in the report. RBC Auto #/vol (Bld) 2.68 10*6/uL Low 4.40-5.90 [facility] Comment on above: Performed By: #### H EMDF, MG3, BMP3 ####The performing lab is in the report. WBC Auto #/vol (Bld) 4.2 10*3/uL Normal 3.6-10.7 [facility] Comment on above: Performed By: #### H EMDF, MG3, BMP3 ####The performing lab is in the report. Magnesiumon 08-14-2017 Magnesium mass conc 2.4 mg/dL High 1.6-2.3 [facility] Comment on above: Performed By: #### H EMDF, MG3, BMP3 ####The performing lab is in the report. Basic Metabolic Panelon 07-17 Calcium mass conc 8.2 mg/dL Low 8.4-10.2 [facility] Comment on above: Performed By: #### H EMDF, MG3, BMP3 ####The performing lab is in the report. Glucose mass conc 163 mg/dL High 70-100 [facility] Comment on above: Performed By: #### H EMDF, MG3, BMP3 ####The performing lab is in the report. Urea nitrogen mass conc 23 mg/dL High 7-20 [facility] Comment on above: Performed By: #### H EMDF, MG3, BMP3 ####The performing lab is in the report. Anion gap 3 molar conc 7 mmol/L Normal [facility] Comment on above: Performed By: #### H EMDF, MG3, BMP3 ####The performing lab is in the report. CO2 molar conc 24 mmol/L Normal 22-30 [facility] Comment on above: Performed By: #### H EMDF, MG3, BMP3 ####The performing lab is in the report. Creatinine mass conc 1.21 mg/dL Normal 0.52-1.25 [facility] Comment on above: Performed By: #### H EMDF, MG3, BMP3 ####The performing lab is in the report. GFR/1.73 sq M predicted among blacks MDRD vol rate/area (S/P/Bld) mL/min/{1.73_m2} Normal >60 [facility] Comment on above: Performed By: #### H EMDF, MG3, BMP3 ####The performing lab is in the report. GFR/1.73 sq M predicted among non-blacks MDRD vol rate/area (S/P/Bld) mL/min/{1.73_m2} Normal >60 [facility] Comment on above: Result Comment: Sour ce- MDRD equation with creatinine calibration to IDMS(NKDEP)eGFR not recommended for drug dose adjustment Performed By: #### H EMDF, MG3, BMP3 ####The performing lab is in the report. Potassium molar conc 4.6 mmol/L Normal 3.5-5.1 [facility] Comment on above: Performed By: #### H EMDF, MG3, BMP3 ####The performing lab is in the report. Chloride molar conc 102 mmol/L Normal 98-107 [facility] Comment on above: Performed By: #### H EMDF, MG3, BMP3 ####The performing lab is in the report. Sodium molar conc 134 mmol/L Low 137-145 [facility] Comment on above: Performed By: #### H EMDF, MG3, BMP3 ####The performing lab is in the report. CR Abdomen APon 08-13-2017 CR Abdomen AP Patient Name: JAMES REYES Diagnostic Radiology Exam Date/Time 08/13/2017 12:57:54 EDT Exam CR Abdomen AP Ordering Physician JARET BEEBE Accession Number [id number] CPT4 Codes 27221 () Reason For Exam right abdominal pain [...] Transcribed Date and Time: 08/13/2017 4:28 Normal [facility] CR Chest Portableon 08-14-19 18 CR Chest Portable Patient Name: JAMES REYES Diagnostic Radiology Exam Date/Time 08/13/2017 06:36:36 EDT Exam CR Chest Portable Ordering Physician STACEY CLEMONS Accession Number [id number] CPT4 Codes 37627 () Reason For Exam Post op open [...] 08/13/2017 8:05 am Signed by: CAM REECE Date and Time: 08/13/2017 8:05 Normal [facility] Hemogramon 08-13-2017 Erythrocyte distribution width Auto Ratio (RBC) 14.9 % High 11.5-14.5 [facility] Comment on above: Performed By: #### H EMDF, MG3, BMP3 ####The performing lab is in the report. Hematocrit Auto Volume Fraction (Bld) 27.3 % Low 40.0-52.0 [facility] Comment on above: Performed By: #### H EMDF, MG3, BMP3 ####The performing lab is in the report. Hemoglobin mass conc (Bld) 8.9 g/dL Low 13.0-18.0 [facility] Comment on above: Performed By: #### H EMDF, MG3, BMP3 ####The performing lab is in the report. MCH Auto Entitic mass (RBC) 30.9 pg Normal 26.0-34.0 [facility] Comment on above: Performed By: #### H EMDF, MG3, BMP3 ####The performing lab is in the report. MCHC Auto mass conc (RBC) 32.5 % Normal 32.0-36.0 [facility] Comment on above: Performed By: #### H EMDF, MG3, BMP3 ####The performing lab is in the report. MCV Auto Entitic volume (RBC) 95.2 fL Normal 80.0-98.0 [facility] Comment on above: Performed By: #### H EMDF, MG3, BMP3 ####The performing lab is in the report. Platelet mean volume Auto Entitic volume (Bld) 8.9 fL Normal 7.4-10.4 [facility] Comment on above: Performed By: #### H EMDF, MG3, BMP3 ####The performing lab is in the report. Platelets Auto #/vol (Bld) 201 10*3/uL Normal 140-440 [facility] Comment on above: Performed By: #### H EMDF, MG3, BMP3 ####The performing lab is in the report. RBC Auto #/vol (Bld) 2.87 10*6/uL Low 4.40-5.90 [facility] Comment on above: Performed By: #### H EMDF, MG3, BMP3 ####The performing lab is in the report. WBC Auto #/vol (Bld) 5.9 10*3/uL Normal 3.6-10.7 [facility] Comment on above: Performed By: #### H EMDF, MG3, BMP3 ####The performing lab is in the report. Magnesiumon 08-13-2017 Magnesium mass conc 2.5 mg/dL High 1.6-2.3 [facility] Comment on above: Performed By: #### H EMDF, MG3, BMP3 ####The performing lab is in the report. Basic Metabolic Panelon 07-17 Calcium mass conc 8.1 mg/dL Low 8.4-10.2 [facility] Comment on above: Performed By: #### H EMDF, MG3, BMP3 ####The performing lab is in the report. Anion gap 3 molar conc 6 mmol/L Normal [facility] Comment on above: Performed By: #### H EMDF, MG3, BMP3 ####The performing lab is in the report. CO2 molar conc 24 mmol/L Normal 22-30 [facility] Comment on above: Performed By: #### H EMDF, MG3, BMP3 ####The performing lab is in the report. Creatinine mass conc 1.26 mg/dL High 0.52-1.25 [facility] Comment on above: Performed By: #### H EMDF, MG3, BMP3 ####The performing lab is in the report. GFR/1.73 sq M predicted among blacks MDRD vol rate/area (S/P/Bld) mL/min/{1.73_m2} Normal >60 [facility] Comment on above: Performed By: #### H EMDF, MG3, BMP3 ####The performing lab is in the report. GFR/1.73 sq M predicted among non-blacks MDRD vol rate/area (S/P/Bld) 58.2 mL/min/{1.73_m2} Normal >60 [facility] Comment on above: Result Comment: Sour ce- MDRD equation with creatinine calibration to IDMS(NKDEP)eGFR not recommended for drug dose adjustment Performed By: #### H EMDF, MG3, BMP3 ####The performing lab is in the report. Glucose mass conc 139 mg/dL High 70-100 [facility] Comment on above: Performed By: #### H EMDF, MG3, BMP3 ####The performing lab is in the report. Urea nitrogen mass conc 20 mg/dL Normal 7-20 [facility] Comment on above: Performed By: #### H EMDF, MG3, BMP3 ####The performing lab is in the report. Chloride molar conc 105 mmol/L Normal 98-107 [facility] Comment on above: Performed By: #### H EMDF, MG3, BMP3 ####The performing lab is in the report. Potassium molar conc 4.2 mmol/L Normal 3.5-5.1 [facility] Comment on above: Performed By: #### H EMDF, MG3, BMP3 ####The performing lab is in the report. Sodium molar conc 135 mmol/L Low 137-145 [facility] Comment on above: Performed By: #### H EMDF, MG3, BMP3 ####The performing lab is in the report. CR Chest Portableon 08-13-19 CR Chest Portable Patient Name: JAMES REYES Diagnostic Radiology Exam Date/Time 08/12/2017 13:18:29 EDT Exam CR Chest Portable Ordering Physician STACEY CLEMONS Accession Number [id number] CPT4 Codes 49296 () Reason For Exam Post op open heart surgery Report Examination: Portable chest Indication: Post op open heart surgery Comparison: Previous day Findings: There has been removal of the Index-Ivelisse catheter. Median sternotomy changes are present. There [...] Transcribed Date and Time: 08/12/2017 1:24 Normal [facility] Glucose,Bedsideon 08-12-2017 Glucose mass conc 128 mg/dL High 70-100 [facility] Comment on above: Result Comment: Test performed by glucose meter. Results may be 10%-15% lowerthan serum/plasma values. (CLIA ID [id number]) Performed By: #### H EMDF, MG3, BMP3 ####The performing lab is in the report. Glucose mass conc 144 mg/dL High 70-100 [facility] Comment on above: Result Comment: Test performed by glucose meter. Results may be 10%-15% lowerthan serum/plasma values. (CLIA ID [id number]) Performed By: #### H EMDF, MG3, BMP3 ####The performing lab is in the report. Hemogram w/ Autodiffon 08-12 Abs Baso Cnt 0.0 10*3/uL Normal 0.0-0.2 [facility] Comment on above: Performed By: #### H EMDF, MG3, BMP3 ####The performing lab is in the report. Abs Neutrophile Cnt 7.6 10*3/uL High 1.8-7.0 [facility] Comment on above: Performed By: #### H EMDF, MG3, BMP3 ####The performing lab is in the report. Basophils/100 WBC Auto (Bld) 0.3 % Normal 0.0-2.0 [facility] Comment on above: Performed By: #### H EMDF, MG3, BMP3 ####The performing lab is in the report. Eosinophils Auto #/vol (Bld) 0.3 10*3/uL Normal 0.0-0.5 [facility] Comment on above: Performed By: #### H EMDF, MG3, BMP3 ####The performing lab is in the report. Eosinophils/100 WBC Auto (Bld) 2.9 % Normal 1.0-6.0 [facility] Comment on above: Performed By: #### H EMDF, MG3, BMP3 ####The performing lab is in the report. Erythrocyte distribution width Auto Ratio (RBC) 15.3 % High 11.5-14.5 [facility] Comment on above: Performed By: #### H EMDF, MG3, BMP3 ####The performing lab is in the report. Granulocytes/100 WBC (Bld) 82.7 % High 40.0-80.0 [facility] Comment on above: Performed By: #### H EMDF, MG3, BMP3 ####The performing lab is in the report. Hematocrit Auto Volume Fraction (Bld) 28.5 % Low 40.0-52.0 [facility] Comment on above: Performed By: #### H EMDF, MG3, BMP3 ####The performing lab is in the report. Hemoglobin mass conc (Bld) 9.4 g/dL Low 13.0-18.0 [facility] Comment on above: Performed By: #### H RAFAELF, MG3, BMP3 ####The performing lab is in the report. Lymphocytes Auto #/vol (Bld) 0.5 10*3/uL Low 1.0-4.3 [facility] Comment on above: Performed By: #### H EMDF, MG3, BMP3 ####The performing lab is in the report. Lymphocytes/100 WBC Auto (Bld) 5.2 % Low 20.0-40.0 [facility] Comment on above: Performed By: #### H EMDF, MG3, BMP3 ####The performing lab is in the report. MCH Auto Entitic mass (RBC) 31.4 pg Normal 26.0-34.0 [facility] Comment on above: Performed By: #### H EMDF, MG3, BMP3 ####The performing lab is in the report. MCHC Auto mass conc (RBC) 33.1 % Normal 32.0-36.0 [facility] Comment on above: Performed By: #### H EMDF, MG3, BMP3 ####The performing lab is in the report. MCV Auto Entitic volume (RBC) 94.7 fL Normal 80.0-98.0 [facility] Comment on above: Performed By: #### H EMDF, MG3, BMP3 ####The performing lab is in the report. Monocytes Auto #/vol (Bld) 0.8 10*3/uL Normal 0.0-0.8 [facility] Comment on above: Performed By: #### H EMDF, MG3, BMP3 ####The performing lab is in the report. Monocytes/100 WBC Auto (Bld) 8.9 % Normal 2.0-10.0 [facility] Comment on above: Performed By: #### H EMDF, MG3, BMP3 ####The performing lab is in the report. Platelet mean volume Auto Entitic volume (Bld) 9.1 fL Normal 7.4-10.4 [facility] Comment on above: Performed By: #### H EMDF, MG3, BMP3 ####The performing lab is in the report. Platelets Auto #/vol (Bld) 214 10*3/uL Normal 140-440 [facility] Comment on above: Performed By: #### H EMDF, MG3, BMP3 ####The performing lab is in the report. RBC Auto #/vol (Bld) 3.01 10*6/uL Low 4.40-5.90 [facility] Comment on above: Performed By: #### H EMDF, MG3, BMP3 ####The performing lab is in the report. WBC Auto #/vol (Bld) 9.2 10*3/uL Normal 3.6-10.7 [facility] Comment on above: Performed By: #### H EMDF, MG3, BMP3 ####The performing lab is in the report. Leukodepleted Red Cellson Leukodepleted Red Cells Leukodepleted Re d Cells: [id number] released 08/12/17 05:29 PKHUnit Blood Type: AUnit Blood Rh: POSBlood Product Code: [id number] Number: [id number] Status: released Barcoded Unit Number: =[id number] Product Code: = Normal [facility] Comment on above: Performed By: #### M G3 BMP3 ####The performing lab is in the report. Magnesiumon 08-12-2017 Magnesium mass conc 2.5 mg/dL High 1.6-2.3 [facility] Comment on above: Performed By: #### H MELANIE MG3, BMP3 ####The performing lab is in the report. Prothrombin Timeon 8 INR Coag RelTime (PPP) 1.1 {INR} Normal 0.9-1.1 [facility] Comment on above: Result Comment: Lux [...] Coag time (PPP) 11.7 s Normal 9.0-12.0 [facility] Comment on above: Result Comment: . Performed By: #### H MELANIE MG3, BMP3 ####The performing lab is in the report. Arterial Blood Gaseson 08-11 HCO3 molar conc (Bld) 24.6 mmol/L Normal 21.0-25.0 [facility] Comment on above: Performed By: #### A BG ####The performing lab is in the report. Hemoglobin mass conc (Bld) 11.1 g/dL Normal ScreenOnly [facility] Comment on above: Performed By: #### A BG ####The performing lab is in the report. Oxygen ppres (BldA) 103.3 mm[Hg] High 80.0-100.0 [facility] Comment on above: Performed By: #### A BG ####The performing lab is in the report. Oxygen saturation in Blood 97.5 % Normal 95.0-100.0 [facility] Comment on above: Performed By: #### A BG ####The performing lab is in the report. pCO2 47.1 mm[Hg] High 35.0-45.0 [facility] Comment on above: Performed By: #### A BG ####The performing lab is in the report. pH (Bld) 7.336 [pH] Low 7.350-7.450 [facility] Comment on above: Performed By: #### A BG ####The performing lab is in the report. Std Base Excess -1.4 mmol/L Normal -3.0-3.0 [facility] Comment on above: Performed By: #### A BG ####The performing lab is in the report. TCO2 26.1 mmol/L Normal 23.0-27.0 [facility] Comment on above: Performed By: #### A BG ####The performing lab is in the report. FIO2 No data Normal [facility] Comment on above: Performed By: #### A BG ####The performing lab is in the report. Basic Metabolic Panelon 04-2 Calcium mass conc 8.4 mg/dL Normal 8.4-10.2 [facility] Comment on above: Performed By: #### P T, HEMDF, MG3, BMP3 ####The performing lab is in the report. Anion gap 3 molar conc 8 mmol/L Normal [facility] Comment on above: Performed By: #### P T, HEMDF, MG3, BMP3 ####The performing lab is in the report. CO2 molar conc 26 mmol/L Normal 22-[address] [facility] Comment on above: Performed By: #### P T, HEMDF, MG3, BMP3 ####The performing lab is in the report. Creatinine mass conc 0.89 mg/dL Normal 0.52-1.25 [facility] Comment on above: Performed By: #### P T, HEMDF, MG3, BMP3 ####The performing lab is in the report. GFR/1.73 sq M predicted among blacks MDRD vol rate/area (S/P/Bld) mL/min/{1.73_m2} Normal >60 [facility] Comment on above: Performed By: #### P T, HEMDF, MG3, BMP3 ####The performing lab is in the report. GFR/1.73 sq M predicted among non-blacks MDRD vol rate/area (S/P/Bld) mL/min/{1.73_m2} Normal >60 [facility] Comment on above: Result Comment: Sour ce- MDRD equation with creatinine calibration to IDMS(NKDEP)eGFR not recommended for drug dose adjustment Performed By: #### P T, HEMDF, MG3, BMP3 ####The performing lab is in the report. Glucose mass conc 80 mg/dL Normal 70-100 [facility] Comment on above: Performed By: #### P T, HEMDF, MG3, BMP3 ####The performing lab is in the report. Urea nitrogen mass conc 15 mg/dL Normal 7-20 [facility] Comment on above: Performed By: #### P T, HEMDF, MG3, BMP3 ####The performing lab is in the report. Chloride molar conc 111 mmol/L High 98-107 [facility] Comment on above: Performed By: #### P T, HEMDF, MG3, BMP3 ####The performing lab is in the report. Potassium molar conc 4.0 mmol/L Normal 3.5-5.1 [facility] Comment on above: Performed By: #### P T, HEMDF, MG3, BMP3 ####The performing lab is in the report. Sodium molar conc 144 mmol/L Normal 137-145 [facility] Comment on above: Performed By: #### P T, HEMDF, MG3, BMP3 ####The performing lab is in the report. CR Chest Portableon 08-12-19 18 CR Chest Portable Patient Name: JAMES REYES [facility]: [id number] Diagnostic Radiology Exam Date/Time 08/11/2017 05:30:09 EDT Exam CR Chest Portable Ordering Physician STACEY CLEMONS Accession Number [id number] CPT4 Codes 11229 () Reason For Exam Post op open heart surgery Report Portable chest Clinical: Postop open-heart surgery COMPARISON: August 10, 2017 Heart size is stable. Median sternotomy changes. Mediastinal drainage catheter and left basilar chest tube remain in place. Endotracheal tube and feeding tube have been removed since the prior study. The right sided internal jugular distribution Index-Ivelisse catheter remains, with the tip overlying the proximal right pulmonary artery distribution. Bibasilar atelectatic changes without sizable pleural effusion or pneumothorax. Osseous degenerative changes. Report Dictated on Final Dictated: 08/11/2017 7:55 am Dictating Physician: MAYO VELASQUEZ Signed Date and Time: 08/11/2017 7:56 am Signed by: MAYO VELASQUEZ Transcribed Date and Time: 08/11/2017 7:55 Normal [facility] Glucose,Bedsideon 08-11-2017 Glucose mass conc 134 mg/dL High 70-100 [facility] Comment on above: Result Comment: Test performed by glucose meter. Results may be 10%-15% lowerthan serum/plasma values. (CLIA ID [id number]) Performed By: #### B GLU ####The performing lab is in the report. Hemogram w/ Autodiffon 08-11 Abs Baso Cnt 0.0 10*3/uL Normal 0.0-0.2 [facility] Comment on above: Performed By: #### P T, HEMDF, MG3, BMP3 ####The performing lab is in the report. Abs Neutrophile Cnt 7.9 10*3/uL High 1.8-7.0 [facility] [employer] Comment on above: Performed By: #### P T, HEMDF, MG3, BMP3 ####The performing lab is in the report. Basophils/100 WBC Auto (Bld) 0.3 % Normal 0.0-2.0 [facility] Comment on above: Performed By: #### P T, HEMDF, MG3, BMP3 ####The performing lab is in the report. Eosinophils Auto #/vol (Bld) 0.0 10*3/uL Normal 0.0-0.5 [facility] Comment on above: Performed By: #### P T, HEMDF, MG3, BMP3 ####The performing lab is in the report. Eosinophils/100 WBC Auto (Bld) 0.1 % Low 1.0-6.0 [facility] Comment on above: Performed By: #### P T, HEMDF, MG3, BMP3 ####The performing lab is in the report. Erythrocyte distribution width Auto Ratio (RBC) 15.1 % High 11.5-14.5 [facility] Comment on above: Performed By: #### P T, HEMDF, MG3, BMP3 ####The performing lab is in the report. Granulocytes/100 WBC (Bld) 88.2 % High 40.0-80.0 [facility] Comment on above: Performed By: #### P T, HEMDF, MG3, BMP3 ####The performing lab is in the report. Hematocrit Auto Volume Fraction (Bld) 31.7 % Low 40.0-52.0 [facility] Comment on above: Performed By: #### P T, HEMDF, MG3, BMP3 ####The performing lab is in the report. Hemoglobin mass conc (Bld) 10.6 g/dL Low 13.0-18.0 [facility] Comment on above: Performed By: #### P T, HEMDF, MG3, BMP3 ####The performing lab is in the report. Lymphocytes Auto #/vol (Bld) 0.2 10*3/uL Low 1.0-4.3 [facility] Comment on above: Performed By: #### P T, HEMDF, MG3, BMP3 ####The performing lab is in the report. Lymphocytes/100 WBC Auto (Bld) 2.3 % Low 20.0-40.0 [facility] Comment on above: Performed By: #### P T, HEMDF, MG3, BMP3 ####The performing lab is in the report. MCH Auto Entitic mass (RBC) 31.5 pg Normal 26.0-34.0 [facility] Comment on above: Performed By: #### P T, HEMDF, MG3, BMP3 ####The performing lab is in the report. MCHC Auto mass conc (RBC) 33.4 % Normal 32.0-36.0 [facility] Comment on above: Performed By: #### P T, HEMDF, MG3, BMP3 ####The performing lab is in the report. MCV Auto Entitic volume (RBC) 94.2 fL Normal 80.0-98.0 [facility] Comment on above: Performed By: #### P T, HEMDF, MG3, BMP3 ####The performing lab is in the report. Monocytes Auto #/vol (Bld) 0.8 10*3/uL Normal 0.0-0.8 [facility] Comment on above: Performed By: #### P T, HEMDF, MG3, BMP3 ####The performing lab is in the report. Monocytes/100 WBC Auto (Bld) 9.1 % Normal 2.0-10.0 [facility] Comment on above: Performed By: #### P T, HEMDF, MG3, BMP3 ####The performing lab is in the report. Platelet mean volume Auto Entitic volume (Bld) 8.7 fL Normal 7.4-10.4 [facility] Comment on above: Performed By: #### P T, HEMDF, MG3, BMP3 ####The performing lab is in the report. Platelets Auto #/vol (Bld) 216 10*3/uL Normal 140-440 [facility] Comment on above: Performed By: #### P T, HEMDF, MG3, BMP3 ####The performing lab is in the report. RBC Auto #/vol (Bld) 3.37 10*6/uL Low 4.40-5.90 [facility] Comment on above: Performed By: #### P T, HEMDF, MG3, BMP3 ####The performing lab is in the report. WBC Auto #/vol (Bld) 8.9 10*3/uL Normal 3.6-10.7 [facility] Comment on above: Performed By: #### P T, HEMDF, MG3, BMP3 ####The performing lab is in the report. Magnesiumon 08-11-2017 Magnesium mass conc 3.0 mg/dL High 1.6-2.3 [facility] Comment on above: Performed By: #### P T, HEMDF, MG3, BMP3 ####The performing lab is in the report. Prothrombin Timeon 8 INR Coag RelTime (PPP) 1.0 {INR} Normal 0.9-1.1 [facility] Comment on above: Result Comment: Lux [...] to preventMyocardial Infarction Performed By: #### P Gopal, HEMDF, MG3, BMP3 ####The performing lab is in the report. Prothrombin time (PT) Coag time (PPP) 10.4 s Normal 9.0-12.0 [facility] Comment on above: Result Comment: . Performed By: #### P Gopal, HEMDF, MG3, BMP3 ####The performing lab is in the report. APTTon 08-10-2017 aPTT Coag time (Bld) 25.0 s Normal 20.0-30.5 [facility] Comment on above: Result Comment: NOTE : The therapeutic time for Heparin anticoagulation,based on Xa activity inhibition, is an APTT of 46-80seconds. Performed By: #### A PTT ####The performing lab is in the report. Arterial Blood Gaseson 08-10 HCO3 molar conc (Bld) 24.1 mmol/L Normal 21.0-25.0 [facility] Comment on above: Performed By: #### A BG ####The performing lab is in the report. Hemoglobin mass conc (Bld) 11.2 g/dL Normal ScreenOnly [facility] Comment on above: Performed By: #### A BG ####The performing lab is in the report. Oxygen ppres (BldA) 85.1 mm[Hg] Normal 80.0-100.0 [facility] Comment on above: Performed By: #### A BG ####The performing lab is in the report. Oxygen saturation in Blood 95.5 % Normal 95.0-100.0 [facility] Comment on above: Performed By: #### A BG ####The performing lab is in the report. pCO2 46.4 mm[Hg] High 35.0-45.0 [facility] Comment on above: Performed By: #### A BG ####The performing lab is in the report. pH (Bld) 7.333 [pH] Low 7.350-7.450 [facility] Comment on above: Performed By: #### A BG ####The performing lab is in the report. Std Base Excess -1.9 mmol/L Normal -3.0-3.0 [facility] Comment on above: Performed By: #### A BG ####The performing lab is in the report. FIO2 No data Normal [facility] Comment on above: Performed By: #### A BG ####The performing lab is in the report. HCO3 molar conc (Bld) 24.2 mmol/L Normal 21.0-25.0 [facility] Comment on above: Performed By: #### M G3, BMP3 ####The performing lab is in the report. Hemoglobin mass conc (Bld) 11.4 g/dL Normal ScreenOnly [facility] Comment on above: Performed By: #### M G3, BMP3 ####The performing lab is in the report. Oxygen ppres (BldA) 147.0 mm[Hg] High 80.0-100.0 [facility] Comment on above: Performed By: #### M G3, BMP3 ####The performing lab is in the report. Oxygen saturation in Blood 98.8 % Normal 95.0-100.0 [facility] Comment on above: Performed By: #### M G3, BMP3 ####The performing lab is in the report. pCO2 42.3 mm[Hg] Normal 35.0-45.0 [facility] Comment on above: Performed By: #### M G3, BMP3 ####The performing lab is in the report. pH (Bld) 7.376 [pH] Normal 7.350-7.450 [facility] Comment on above: Performed By: #### M G3, BMP3 ####The performing lab is in the report. Std Base Excess -1.0 mmol/L Normal -3.0-3.0 [facility] Comment on above: Performed By: #### M G3, BMP3 ####The performing lab is in the report. TCO2 25.5 mmol/L Normal 23.0-27.0 [facility] Comment on above: Performed By: #### A BG ####The performing lab is in the report. Performed By: #### M G3, BMP3 ####The performing lab is in the report. FIO2 No data Normal [facility] Comment on above: Performed By: #### M G3, BMP3 ####The performing lab is in the report. Basic Metabolic Panelon - Anion gap 3 molar conc 9 mmol/L Normal [facility] Comment on above: Performed By: #### I CA, HEMOG, PT, FIBGN, MG3, BMP3, PHOS3 ####The performing lab is in the report. Calcium mass conc 8.5 mg/dL Normal 8.4-10.2 [facility] Comment on above: Performed By: #### I CA, HEMOG, PT, FIBGN, MG3, BMP3, PHOS3 ####The performing lab is in the report. CO2 molar conc 25 mmol/L Normal 22-[address] [facility] Comment on above: Performed By: #### I CA, HEMOG, PT, FIBGN, MG3, BMP3, PHOS3 ####The performing lab is in the report. Glucose mass conc 111 mg/dL High 70-100 [facility] Comment on above: Performed By: #### I CA, HEMOG, PT, FIBGN, MG3, BMP3, PHOS3 ####The performing lab is in the report. Urea nitrogen mass conc 17 mg/dL Normal 7-20 [facility] Comment on above: Performed By: #### I CA, HEMOG, PT, FIBGN, MG3, BMP3, PHOS3 ####The performing lab is in the report. Creatinine mass conc 0.93 mg/dL Normal 0.52-1.25 [facility] Comment on above: Performed By: #### I CA, HEMOG, PT, FIBGN, MG3, BMP3, PHOS3 ####The performing lab is in the report. GFR/1.73 sq M predicted among blacks MDRD vol rate/area (S/P/Bld) mL/min/{1.73_m2} Normal >60 [facility] Comment on above: Performed By: #### I CA, HEMOG, PT, FIBGN, MG3, BMP3, PHOS3 ####The performing lab is in the report. GFR/1.73 sq M predicted among non-blacks MDRD vol rate/area (S/P/Bld) mL/min/{1.73_m2} Normal >60 [facility] Comment on above: Result Comment: Sour ce- MDRD equation with creatinine calibration to IDMS(NKDEP)eGFR not recommended for drug dose adjustment Performed By: #### I CA, HEMOG, PT, FIBGN, MG3, BMP3, PHOS3 ####The performing lab is in the report. Potassium molar conc 4.2 mmol/L Normal 3.5-5.1 [facility] Comment on above: Performed By: #### I CA, HEMOG, PT, FIBGN, MG3, BMP3, PHOS3 ####The performing lab is in the report. Sodium molar conc 145 mmol/L Normal 137-145 [facility] Comment on above: Performed By: #### I CA, HEMOG, PT, FIBGN, MG3, BMP3, PHOS3 ####The performing lab is in the report. Chloride molar conc 111 mmol/L High 98-107 [facility] Comment on above: Performed By: #### I CA, HEMOG, PT, FIBGN, MG3, BMP3, PHOS3 ####The performing lab is in the report. Calcium mass conc 8.2 mg/dL Low 8.4-10.2 [facility] Comment on above: Performed By: #### Ap G3, BMP3 ####The performing lab is in the report. Anion gap 3 molar conc 5 mmol/L Normal [facility] Comment on above: Performed By: #### Ap G3, BMP3 ####The performing lab is in the report. CO2 molar conc 27 mmol/L Normal 22-[address] [facility] Comment on above: Performed By: #### Ap G3, BMP3 ####The performing lab is in the report. Creatinine mass conc 0.93 mg/dL Normal 0.52-1.25 [facility] Comment on above: Performed By: #### Ap G3, BMP3 ####The performing lab is in the report. GFR/1.73 sq M predicted among blacks MDRD vol rate/area (S/P/Bld) mL/min/{1.73_m2} Normal >60 [facility] Comment on above: Performed By: #### Ap G3, BMP3 ####The performing lab is in the report. GFR/1.73 sq M predicted among non-blacks MDRD vol rate/area (S/P/Bld) mL/min/{1.73_m2} Normal >60 [facility] Comment on above: Result Comment: Sour ce- MDRD equation with creatinine calibration to IDMS(NKDEP)eGFR not recommended for drug dose adjustment Performed By: #### Ap G3, BMP3 ####The performing lab is in the report. Glucose mass conc 123 mg/dL High 70-100 [facility] Comment on above: Performed By: #### Ap G3, BMP3 ####The performing lab is in the report. Urea nitrogen mass conc 15 mg/dL Normal 7-20 [facility] Comment on above: Performed By: #### Ap G3, BMP3 ####The performing lab is in the report. Chloride molar conc 111 mmol/L High 98-107 [facility] Comment on above: Performed By: #### Ap G3, BMP3 ####The performing lab is in the report. Potassium molar conc 3.7 mmol/L Normal 3.5-5.1 [facility] Comment on above: Performed By: #### Ap G3, BMP3 ####The performing lab is in the report. Sodium molar conc 143 mmol/L Normal 137-145 [facility] Comment on above: Performed By: #### M G3, BMP3 ####The performing lab is in the report. Anion gap 3 molar conc 9 mmol/L Normal [facility] Comment on above: Performed By: #### Ap G3, BMP3 ####The performing lab is in the report. Calcium mass conc 9.3 mg/dL Normal 8.4-10.2 [facility] Comment on above: Performed By: #### Ap G3, BMP3 ####The performing lab is in the report. CO2 molar conc 27 mmol/L Normal 22-[address] [facility] Comment on above: Performed By: #### Ap G3, BMP3 ####The performing lab is in the report. Glucose mass conc 161 mg/dL High 70-100 [facility] Comment on above: Performed By: #### Ap G3, BMP3 ####The performing lab is in the report. Urea nitrogen mass conc 18 mg/dL Normal 7-20 [facility] Comment on above: Performed By: #### Ap G3, BMP3 ####The performing lab is in the report. Creatinine mass conc 0.88 mg/dL Normal 0.52-1.25 [facility] Comment on above: Performed By: #### Ap G3, BMP3 ####The performing lab is in the report. GFR/1.73 sq M predicted among blacks MDRD vol rate/area (S/P/Bld) mL/min/{1.73_m2} Normal >60 [facility] Comment on above: Performed By: #### Ap G3, BMP3 ####The performing lab is in the report. GFR/1.73 sq M predicted among non-blacks MDRD vol rate/area (S/P/Bld) mL/min/{1.73_m2} Normal >60 [facility] Comment on above: Result Comment: Sour ce- MDRD equation with creatinine calibration to IDMS(NKDEP)eGFR not recommended for drug dose adjustment Performed By: #### M G3, BMP3 ####The performing lab is in the report. Potassium molar conc 4.2 mmol/L Normal 3.5-5.1 [facility] Comment on above: Performed By: #### M G3, BMP3 ####The performing lab is in the report. Sodium molar conc 143 mmol/L Normal 137-145 [facility] Comment on above: Performed By: #### M G3, BMP3 ####The performing lab is in the report. Chloride molar conc 107 mmol/L Normal 98-107 [facility] Comment on above: Performed By: #### M G3, BMP3 ####The performing lab is in the report. CR Chest Portableon 08-11-19 CR Chest Portable Patient Name: JAMES REYES Diagnostic Radiology Exam Date/Time 08/10/2017 14:26:03 EDT Exam CR Chest Portable Ordering Physician STACEY CLEMONS Accession Number [id number] CPT4 Codes 63357 () Reason For Exam Post op open heart surgery Report CLINICAL INFORMATION: Open heart surgery. Intubation. Portable view of the chest at 1345 hours is provided and compared to a previous study dated August 06, 2017. FINDINGS: An endotracheal tube is now seen with its tip approximately 5 cm above the greg. An enteric tube extends into the stomach. A Index-Ivelisse catheter is in place via the right [...] Transcribed Date and Time: 08/10/2017 3:36 Normal [facility] CULTURE STAPH AUREUSon 08-10 CULTURE STAPH AUREUS CULTURE STAPH AUREU S --> Status: F No Staphylococcus aureus isolated. Normal [facility] Comment on above: Performed By: #### H EMDF, MG3, BMP3 ####The performing lab is in the report. Calcium,Ionizedon 08-10-2017 Ionized Ca,Measured 4.10 mg/dL Low 4.30-5.20 [facility] Comment on above: Performed By: #### M G3, BMP3 ####The performing lab is in the report. pH, Ionized Calcium 7.37 Normal 7.31-7.46 [facility] Comment on above: Performed By: #### M G3, BMP3 ####The performing lab is in the report. pH, Ionized Calcium 7.40 Normal 7.31-7.46 [facility] Comment on above: Performed By: #### M G3, BMP3 ####The performing lab is in the report. Ionized Ca,Measured 4.50 mg/dL Normal 4.30-5.20 [facility] Comment on above: Performed By: #### M G3, BMP3 ####The performing lab is in the report. Fibrinogenon 08-10-2017 Fibrinogen 359 mg/dL Normal 200-400 [facility] Comment on above: Performed By: #### M G3, BMP3 ####The performing lab is in the report. Hemogramon 08-10-2017 Erythrocyte distribution width Auto Ratio (RBC) 14.7 % High 11.5-14.5 [facility] Comment on above: Performed By: #### M G3, BMP3 ####The performing lab is in the report. Hematocrit Auto Volume Fraction (Bld) 32.7 % Low 40.0-52.0 [facility] Comment on above: Performed By: #### M G3, BMP3 ####The performing lab is in the report. Hemoglobin mass conc (Bld) 10.7 g/dL Low 13.0-18.0 [facility] Comment on above: Performed By: #### M G3, BMP3 ####The performing lab is in the report. MCH Auto Entitic mass (RBC) 31.1 pg Normal 26.0-34.0 [facility] Comment on above: Performed By: #### Ap G3, BMP3 ####The performing lab is in the report. MCHC Auto mass conc (RBC) 32.8 % Normal 32.0-36.0 [facility] Comment on above: Performed By: #### Ap G3, BMP3 ####The performing lab is in the report. MCV Auto Entitic volume (RBC) 94.7 fL Normal 80.0-98.0 [facility] Comment on above: Performed By: #### Ap G3, BMP3 ####The performing lab is in the report. Platelet mean volume Auto Entitic volume (Bld) 8.5 fL Normal 7.4-10.4 [facility] Comment on above: Performed By: #### Ap G3, BMP3 ####The performing lab is in the report. Platelets Auto #/vol (Bld) 224 10*3/uL Normal 140-440 [facility] Comment on above: Performed By: #### Ap Sanchez, BMP3 ####The performing lab is in the report. RBC Auto #/vol (Bld) 3.45 10*6/uL Low 4.40-5.90 [facility] Comment on above: Performed By: #### Ap G3, BMP3 ####The performing lab is in the report. WBC Auto #/vol (Bld) 9.7 10*3/uL Normal 3.6-10.7 [facility] Comment on above: Performed By: #### Ap G3, BMP3 ####The performing lab is in the report. Erythrocyte distribution width Auto Ratio (RBC) 15.0 % High 11.5-14.5 [facility] Comment on above: Performed By: #### Ap G3, BMP3 ####The performing lab is in the report. Hematocrit Auto Volume Fraction (Bld) 32.9 % Low 40.0-52.0 [facility] Comment on above: Performed By: #### Ap G3, BMP3 ####The performing lab is in the report. Hemoglobin mass conc (Bld) 10.9 g/dL Low 13.0-18.0 [facility] Comment on above: Performed By: #### Ap G3, BMP3 ####The performing lab is in the report. MCH Auto Entitic mass (RBC) 31.2 pg Normal 26.0-34.0 [facility] Comment on above: Performed By: #### Ap G3, BMP3 ####The performing lab is in the report. MCHC Auto mass conc (RBC) 33.0 % Normal 32.0-36.0 [facility] Comment on above: Performed By: #### Ap G3, BMP3 ####The performing lab is in the report. MCV Auto Entitic volume (RBC) 94.3 fL Normal 80.0-98.0 [facility] Comment on above: Performed By: #### Ap G3, BMP3 ####The performing lab is in the report. Platelet mean volume Auto Entitic volume (Bld) 8.5 fL Normal 7.4-10.4 [facility] Comment on above: Performed By: #### Ap G3, BMP3 ####The performing lab is in the report. Platelets Auto #/vol (Bld) 199 10*3/uL Normal 140-440 [facility] Comment on above: Performed By: #### Ap G3, BMP3 ####The performing lab is in the report. RBC Auto #/vol (Bld) 3.49 10*6/uL Low 4.40-5.90 [facility] Comment on above: Performed By: #### Ap G3, BMP3 ####The performing lab is in the report. WBC Auto #/vol (Bld) 9.8 10*3/uL Normal 3.6-10.7 [facility] Comment on above: Performed By: #### Ap G3, BMP3 ####The performing lab is in the report. Hemogram w/ Autodiffon 08-10 Abs Baso Cnt 0.1 10*3/uL Normal 0.0-0.2 [facility] Comment on above: Performed By: #### Ap G3, BMP3 ####The performing lab is in the report. Abs Neutrophile Cnt 2.5 10*3/uL Normal 1.8-7.0 [facility] Comment on above: Performed By: #### Ap G3, BMP3 ####The performing lab is in the report. Basophils/100 WBC Auto (Bld) 1.2 % Normal 0.0-2.0 [facility] Comment on above: Performed By: #### Ap G3, BMP3 ####The performing lab is in the report. Eosinophils Auto #/vol (Bld) 0.2 10*3/uL Normal 0.0-0.5 [facility] Comment on above: Performed By: #### Ap G3, BMP3 ####The performing lab is in the report. Eosinophils/100 WBC Auto (Bld) 3.8 % Normal 1.0-6.0 [facility] Comment on above: Performed By: #### Ap G3, BMP3 ####The performing lab is in the report. Erythrocyte distribution width Auto Ratio (RBC) 14.8 % High 11.5-14.5 [facility] Comment on above: Performed By: #### Ap G3, BMP3 ####The performing lab is in the report. Granulocytes/100 WBC (Bld) 56.4 % Normal 40.0-80.0 [facility] Comment on above: Performed By: #### Ap G3, BMP3 ####The performing lab is in the report. Hematocrit Auto Volume Fraction (Bld) 38.4 % Low 40.0-52.0 [facility] Comment on above: Performed By: #### Ap G3, BMP3 ####The performing lab is in the report. Hemoglobin mass conc (Bld) 12.5 g/dL Low 13.0-18.0 [facility] Comment on above: Performed By: #### Ap G3, BMP3 ####The performing lab is in the report. Lymphocytes Auto #/vol (Bld) 1.3 10*3/uL Normal 1.0-4.3 [facility] Comment on above: Performed By: #### Ap G3, BMP3 ####The performing lab is in the report. Lymphocytes/100 WBC Auto (Bld) 29.9 % Normal 20.0-40.0 [facility] Comment on above: Performed By: #### Ap G3, BMP3 ####The performing lab is in the report. MCH Auto Entitic mass (RBC) 31.0 pg Normal 26.0-34.0 [facility] Comment on above: Performed By: #### Ap G3, BMP3 ####The performing lab is in the report. MCHC Auto mass conc (RBC) 32.7 % Normal 32.0-36.0 [facility] Comment on above: Performed By: #### Ap G3, BMP3 ####The performing lab is in the report. MCV Auto Entitic volume (RBC) 94.7 fL Normal 80.0-98.0 [facility] Comment on above: Performed By: #### Ap G3, BMP3 ####The performing lab is in the report. Monocytes Auto #/vol (Bld) 0.4 10*3/uL Normal 0.0-0.8 [facility] Comment on above: Performed By: #### Ap G3, BMP3 ####The performing lab is in the report. Monocytes/100 WBC Auto (Bld) 8.7 % Normal 2.0-10.0 [facility] Comment on above: Performed By: #### Ap G3, BMP3 ####The performing lab is in the report. Platelet mean volume Auto Entitic volume (Bld) 8.7 fL Normal 7.4-10.4 [facility] Comment on above: Performed By: #### Ap G3, BMP3 ####The performing lab is in the report. Platelets Auto #/vol (Bld) 281 10*3/uL Normal 140-440 [facility] Comment on above: Performed By: #### Ap G3, BMP3 ####The performing lab is in the report. RBC Auto #/vol (Bld) 4.05 10*6/uL Low 4.40-5.90 [facility] Comment on above: Performed By: #### Ap G3, BMP3 ####The performing lab is in the report. WBC Auto #/vol (Bld) 4.4 10*3/uL Normal 3.6-10.7 [facility] Comment on above: Performed By: #### Ap G3, BMP3 ####The performing lab is in the report. Magnesiumon 08-10-2017 Magnesium mass conc 3.2 mg/dL High 1.6-2.3 [facility] Comment on above: Performed By: #### M G3, BMP3 ####The performing lab is in the report. Magnesium mass conc 3.0 mg/dL High 1.6-2.3 [facility] Comment on above: Performed By: #### M G3, BMP3 ####The performing lab is in the report. Magnesium mass conc 2.1 mg/dL Normal 1.6-2.3 [facility] Comment on above: Performed By: #### M G3, BMP3 ####The performing lab is in the report. PF Full PFT Studyon 08-11-19 18 PF Full PFT Study Patient Name: JAMES REYES Pulmonary Function Exam Date/Time 08/09/2017 15:19:54 EDT Exam PF Full PFT Study Ordering Physician STACEY CLEMONS Accession Number [id number] Reason For Exam Chest pain Report Diffusion [...] Transcribed Date and Time: 08/10/2017 4:40 Normal [facility] Phosphoruson 08-10-2017 Phosphate mass conc 2.9 mg/dL Normal 2.5-4.5 [facility] Comment on above: Performed By: #### I CA, HEMOG, PT, FIBGN, MG3, BMP3, PHOS3 ####The performing lab is in the report. Phosphate mass conc 2.6 mg/dL Normal 2.5-4.5 [facility] Comment on above: Performed By: #### M G3, BMP3 ####The performing lab is in the report. Prothrombin Timeon 8 INR Coag RelTime (PPP) 1.0 {INR} Normal 0.9-1.1 [facility] Comment on above: Result Comment: Lux [...] Coag time (PPP) 10.7 s Normal 9.0-12.0 [facility] Comment on above: Result Comment: . Performed By: #### M G3, BMP3 ####The performing lab is in the report. Protimeon 08-10-2017 INR Coag RelTime (PPP) 1.1 {INR} Normal 0.9-1.1 [facility] Comment on above: Result Comment: Lux [...] Coag time (PPP) 11.8 s Normal 9.0-12.0 [facility] Comment on above: Result Comment: . Performed By: #### M G3, BMP3 ####The performing lab is in the report. aPTT Coag time (Bld) 24.1 s Normal 20.0-30.5 [facility] Comment on above: Result Comment: NOTE : The therapeutic time for Heparin anticoagulation,based on Xa activity inhibition, is an APTT of 46-80seconds. Performed By: #### M G3, BMP3 ####The performing lab is in the report. APTTon 08-09-2017 aPTT Coag time (Bld) 26.4 s Normal 20.0-30.5 [facility] Comment on above: Result Comment: NOTE : The therapeutic time for Heparin anticoagulation,based on Xa activity inhibition, is an APTT of 46-80seconds. Performed By: #### H EMDF, APTT, HA1C2 ####The performing lab is in the report. Basic Metabolic Panelon 07-17 Anion gap 3 molar conc 6 mmol/L Normal [facility] Comment on above: Performed By: #### H EMDF, MG3, BMP3 ####The performing lab is in the report. Calcium mass conc 9.1 mg/dL Normal 8.4-10.2 [facility] Comment on above: Performed By: #### H EMDF, MG3, BMP3 ####The performing lab is in the report. CO2 molar conc 29 mmol/L Normal 22-[address] [facility] Comment on above: Performed By: #### H EMDF, MG3, BMP3 ####The performing lab is in the report. Glucose mass conc 138 mg/dL High 70-100 [facility] Comment on above: Performed By: #### H EMDF, MG3, BMP3 ####The performing lab is in the report. Urea nitrogen mass conc 15 mg/dL Normal 7-20 [facility] Comment on above: Performed By: #### H EMDF, MG3, BMP3 ####The performing lab is in the report. Creatinine mass conc 0.86 mg/dL Normal 0.52-1.25 [facility] Comment on above: Performed By: #### H EMDF, MG3, BMP3 ####The performing lab is in the report. GFR/1.73 sq M predicted among blacks MDRD vol rate/area (S/P/Bld) mL/min/{1.73_m2} Normal >60 [facility] Comment on above: Performed By: #### H EMDF, MG3, BMP3 ####The performing lab is in the report. GFR/1.73 sq M predicted among non-blacks MDRD vol rate/area (S/P/Bld) mL/min/{1.73_m2} Normal >60 [facility] Comment on above: Result Comment: Sour ce- MDRD equation with creatinine calibration to IDMS(NKDEP)eGFR not recommended for drug dose adjustment Performed By: #### H EMDF, MG3, BMP3 ####The performing lab is in the report. Chloride molar conc 107 mmol/L Normal 98-107 [facility] Comment on above: Performed By: #### H EMDF, MG3, BMP3 ####The performing lab is in the report. Potassium molar conc 4.2 mmol/L Normal 3.5-5.1 [facility] Comment on above: Performed By: #### H EMDF, MG3, BMP3 ####The performing lab is in the report. Sodium molar conc 142 mmol/L Normal 137-145 [facility] Comment on above: Performed By: #### H EMDF, MG3, BMP3 ####The performing lab is in the report. Hemoglobin A1Con 08-09-2017 Glucose mass conc 148 mg/dL Normal [facility] Comment on above: Performed By: #### H EMDF, APTT, HA1C2 ####The performing lab is in the report. Hemoglobin A1c/Hemoglobin.total mass fraction (Bld) 6.8 % High 4.0-5.7 [facility] Comment on above: Result Comment: --Hg bA1C levels may not be accurate in patients who haverenal disease, received recent blood transfusions, are anemic,or who have dyshemoglobinemia. Performed By: #### H EMDF, APTT, HA1C2 ####The performing lab is in the report. Hemogram w/ Autodiffon 08-09 Abs Baso Cnt 0.1 10*3/uL Normal 0.0-0.2 [facility] Comment on above: Performed By: #### H EMDF, APTT, HA1C2 ####The performing lab is in the report. Abs Neutrophile Cnt 3.3 10*3/uL Normal 1.8-7.0 [facility] Comment on above: Performed By: #### H EMDF, APTT, HA1C2 ####The performing lab is in the report. Basophils/100 WBC Auto (Bld) 1.9 % Normal 0.0-2.0 [facility] Comment on above: Performed By: #### H EMDF, APTT, HA1C2 ####The performing lab is in the report. Eosinophils Auto #/vol (Bld) 0.1 10*3/uL Normal 0.0-0.5 [facility] Comment on above: Performed By: #### H EMDF, APTT, HA1C2 ####The performing lab is in the report. Eosinophils/100 WBC Auto (Bld) 2.1 % Normal 1.0-6.0 [facility] Comment on above: Performed By: #### H EMDF, APTT, HA1C2 ####The performing lab is in the report. Erythrocyte distribution width Auto Ratio (RBC) 14.6 % High 11.5-14.5 [facility] Comment on above: Performed By: #### H EMDF, APTT, HA1C2 ####The performing lab is in the report. Granulocytes/100 WBC (Bld) 69.9 % Normal 40.0-80.0 [facility] Comment on above: Performed By: #### H EMDF, APTT, HA1C2 ####The performing lab is in the report. Hematocrit Auto Volume Fraction (Bld) 38.9 % Low 40.0-52.0 [facility] Comment on above: Performed By: #### H EMDF, APTT, HA1C2 ####The performing lab is in the report. Hemoglobin mass conc (Bld) 12.6 g/dL Low 13.0-18.0 [facility] Comment on above: Performed By: #### H EMDF, APTT, HA1C2 ####The performing lab is in the report. Lymphocytes Auto #/vol (Bld) 0.8 10*3/uL Low 1.0-4.3 [facility] Comment on above: Performed By: #### H EMDF, APTT, HA1C2 ####The performing lab is in the report. Lymphocytes/100 WBC Auto (Bld) 17.7 % Low 20.0-40.0 [facility] Comment on above: Performed By: #### H EMDF, APTT, HA1C2 ####The performing lab is in the report. MCH Auto Entitic mass (RBC) 30.6 pg Normal 26.0-34.0 [facility] Comment on above: Performed By: #### H EMDF, APTT, HA1C2 ####The performing lab is in the report. MCHC Auto mass conc (RBC) 32.5 % Normal 32.0-36.0 [facility] Comment on above: Performed By: #### H EMDF, APTT, HA1C2 ####The performing lab is in the report. MCV Auto Entitic volume (RBC) 94.0 fL Normal 80.0-98.0 [facility] Comment on above: Performed By: #### H EMDF, APTT, HA1C2 ####The performing lab is in the report. Monocytes Auto #/vol (Bld) 0.4 10*3/uL Normal 0.0-0.8 [facility] Comment on above: Performed By: #### H EMDF, APTT, HA1C2 ####The performing lab is in the report. Monocytes/100 WBC Auto (Bld) 8.4 % Normal 2.0-10.0 [facility] Comment on above: Performed By: #### H EMDF, APTT, HA1C2 ####The performing lab is in the report. Platelet mean volume Auto Entitic volume (Bld) 8.9 fL Normal 7.4-10.4 [facility] Comment on above: Performed By: #### H EMDF, APTT, HA1C2 ####The performing lab is in the report. Platelets Auto #/vol (Bld) 280 10*3/uL Normal 140-440 [facility] Comment on above: Performed By: #### H EMDF, APTT, HA1C2 ####The performing lab is in the report. RBC Auto #/vol (Bld) 4.14 10*6/uL Low 4.40-5.90 [facility] Comment on above: Performed By: #### H EMDF, APTT, HA1C2 ####The performing lab is in the report. WBC Auto #/vol (Bld) 4.7 10*3/uL Normal 3.6-10.7 [facility] Comment on above: Performed By: #### H EMDF, APTT, HA1C2 ####The performing lab is in the report. Abs Baso Cnt 0.1 10*3/uL Normal 0.0-0.2 [facility] Comment on above: Performed By: #### H EMDF, MG3, BMP3 ####The performing lab is in the report. Abs Neutrophile Cnt 3.0 10*3/uL Normal 1.8-7.0 [facility] Comment on above: Performed By: #### H EMDF, MG3, BMP3 ####The performing lab is in the report. Basophils/100 WBC Auto (Bld) 1.1 % Normal 0.0-2.0 [facility] Comment on above: Performed By: #### H EMDF, MG3, BMP3 ####The performing lab is in the report. Eosinophils Auto #/vol (Bld) 0.1 10*3/uL Normal 0.0-0.5 [facility] Comment on above: Performed By: #### H EMDF, MG3, BMP3 ####The performing lab is in the report. Eosinophils/100 WBC Auto (Bld) 2.8 % Normal 1.0-6.0 [facility] Comment on above: Performed By: #### H EMDF, MG3, BMP3 ####The performing lab is in the report. Erythrocyte distribution width Auto Ratio (RBC) 14.9 % High 11.5-14.5 [facility] Comment on above: Performed By: #### H EMDF, MG3, BMP3 ####The performing lab is in the report. Granulocytes/100 WBC (Bld) 62.0 % Normal 40.0-80.0 [facility] Comment on above: Performed By: #### Alfonso NAVARRO MG3, BMP3 ####The performing lab is in the report. Hematocrit Auto Volume Fraction (Bld) 40.1 % Normal 40.0-52.0 [facility] Comment on above: Performed By: #### Alfonso HALLF MG3, BMP3 ####The performing lab is in the report. Hemoglobin mass conc (Bld) 13.2 g/dL Normal 13.0-18.0 [facility] Comment on above: Performed By: #### H MELANIE MG3, BMP3 ####The performing lab is in the report. Lymphocytes Auto #/vol (Bld) 1.2 10*3/uL Normal 1.0-4.3 [facility] Comment on above: Performed By: #### Alfonso NAVARRO MG3, BMP3 ####The performing lab is in the report. Lymphocytes/100 WBC Auto (Bld) 25.8 % Normal 20.0-40.0 [facility] Comment on above: Performed By: #### Alfonso NAVARRO MG3, BMP3 ####The performing lab is in the report. MCH Auto Entitic mass (RBC) 30.8 pg Normal 26.0-34.0 [facility] Comment on above: Performed By: #### H MELANIE, MG3, BMP3 ####The performing lab is in the report. MCHC Auto mass conc (RBC) 32.8 % Normal 32.0-36.0 [facility] Comment on above: Performed By: #### H EMDF, MG3, BMP3 ####The performing lab is in the report. MCV Auto Entitic volume (RBC) 94.0 fL Normal 80.0-98.0 [facility] Comment on above: Performed By: #### H EMDF, MG3, BMP3 ####The performing lab is in the report. Monocytes Auto #/vol (Bld) 0.4 10*3/uL Normal 0.0-0.8 [facility] Comment on above: Performed By: #### H EMDF, MG3, BMP3 ####The performing lab is in the report. Monocytes/100 WBC Auto (Bld) 8.3 % Normal 2.0-10.0 [facility] Comment on above: Performed By: #### H EMDF, MG3, BMP3 ####The performing lab is in the report. Platelet mean volume Auto Entitic volume (Bld) 8.7 fL Normal 7.4-10.4 [facility] Comment on above: Performed By: #### H EMDF, MG3, BMP3 ####The performing lab is in the report. Platelets Auto #/vol (Bld) 274 10*3/uL Normal 140-440 [facility] Comment on above: Performed By: #### H EMDF, MG3, BMP3 ####The performing lab is in the report. RBC Auto #/vol (Bld) 4.27 10*6/uL Low 4.40-5.90 [facility] Comment on above: Performed By: #### H EMDF, MG3, BMP3 ####The performing lab is in the report. WBC Auto #/vol (Bld) 4.8 10*3/uL Normal 3.6-10.7 [facility] Comment on above: Performed By: #### H EMDF, MG3, BMP3 ####The performing lab is in the report. Magnesiumon 08-09-2017 Magnesium mass conc 2.0 mg/dL Normal 1.6-2.3 [facility] Comment on above: Performed By: #### H EMDF, MG3, BMP3 ####The performing lab is in the report. TS GELon 08-09-2017 TS GEL ABO Group: A Rh, Gel: POS Antibody Screen Gel: NEG Normal [facility] Comment on above: Performed By: #### M G3, BMP3 ####The performing lab is in the report. Urinalysis,Macroon 8 Appearance clear Normal Clear [facility] Comment on above: Performed By: #### M G3, BMP3 ####The performing lab is in the report. Bilirubin,Ur Negative Normal Negative [facility] Comment on above: Performed By: #### M G3, BMP3 ####The performing lab is in the report. Color yellow Normal Lt. Yellow [facility] Comment on above: Performed By: #### M G3, BMP3 ####The performing lab is in the report. Glucose Ql (U) NORM Normal Negative [facility] Comment on above: Performed By: #### M G3, BMP3 ####The performing lab is in the report. Ketone,Urine Negative Normal Negative [facility] Comment on above: Performed By: #### M G3, BMP3 ####The performing lab is in the report. Leukocytes Negative Normal Negative [facility] Comment on above: Performed By: #### M G3, BMP3 ####The performing lab is in the report. Nitrites Negative Normal Negative [facility] Comment on above: Performed By: #### M G3, BMP3 ####The performing lab is in the report. Occult Blood,Ur Negative Normal Negative [facility] Comment on above: Performed By: #### Ap G3, BMP3 ####The performing lab is in the report. pH Test strip (U) 7.0 [pH] Normal 5.0-8.0 [facility] Comment on above: Performed By: #### M G3, BMP3 ####The performing lab is in the report. Specific [place],Urine 1.005 Normal 1.005-1.030 [facility] Comment on above: Performed By: #### M G3, BMP3 ####The performing lab is in the report. Total Protein,Urine Negative Normal Negative [facility] Comment on above: Performed By: #### M G3, BMP3 ####The performing lab is in the report. Urobilinogen NORM Normal 0-1 [facility] Comment on above: Performed By: #### M G3, BMP3 ####The performing lab is in the report. Basic Metabolic Panelon 07-17 Anion gap 3 molar conc 7 mmol/L Normal [facility] Comment on above: Performed By: #### M G3, BMP3 ####The performing lab is in the report. Calcium mass conc 9.0 mg/dL Normal 8.4-10.2 [facility] Comment on above: Performed By: #### Ap G3, BMP3 ####The performing lab is in the report. CO2 molar conc 26 mmol/L Normal 22-[address] [facility] Comment on above: Performed By: #### Ap G3, BMP3 ####The performing lab is in the report. Glucose mass conc 162 mg/dL High 70-100 [facility] Comment on above: Performed By: #### Ap G3, BMP3 ####The performing lab is in the report. Urea nitrogen mass conc 18 mg/dL Normal 7-20 [facility] Comment on above: Performed By: #### Ap G3, BMP3 ####The performing lab is in the report. Creatinine mass conc 0.95 mg/dL Normal 0.52-1.25 [facility] Comment on above: Performed By: #### Ap G3, BMP3 ####The performing lab is in the report. GFR/1.73 sq M predicted among blacks MDRD vol rate/area (S/P/Bld) mL/min/{1.73_m2} Normal >60 [facility] Comment on above: Performed By: #### Ap G3, BMP3 ####The performing lab is in the report. GFR/1.73 sq M predicted among non-blacks MDRD vol rate/area (S/P/Bld) mL/min/{1.73_m2} Normal >60 [facility] Comment on above: Result Comment: Sour ce- MDRD equation with creatinine calibration to IDMS(NKDEP)eGFR not recommended for drug dose adjustment Performed By: #### Ap G3, BMP3 ####The performing lab is in the report. Potassium molar conc 4.1 mmol/L Normal 3.5-5.1 [facility] Comment on above: Performed By: #### Ap G3, BMP3 ####The performing lab is in the report. Chloride molar conc 105 mmol/L Normal 98-107 [facility] Comment on above: Performed By: #### Ap G3, BMP3 ####The performing lab is in the report. Sodium molar conc 138 mmol/L Normal 137-145 [facility] [employer] [facility] Comment on above: Performed By: #### M G3, BMP3 ####The performing lab is in the report. Magnesiumon 08-08-2017 Magnesium mass conc 2.1 mg/dL Normal 1.6-2.3 [facility] Comment on above: Performed By: #### M G3, BMP3 ####The performing lab is in the report. VL Vein Map for Preop Bypass [place] 08-08-2017 VL Vein Map for Preop Bypass [place] Patient Name: JAMES REYES Ultrasound Exam Date/Time 08/08/2017 16:04:08 EDT Exam VL Vein Map for Preop Bypass [place] Ordering Physician STACEY CLEMONS Accession Number [id number] CPT4 Codes 26181 () Reason For Exam pre op cabg Report [facility] ------ --- Bilateral LE Vein Mapping For Bypass Report Patient Name: James Reyes : 1955 Study Date: 08/08/2017 (61yrs) Age: 61 Account: [id number] Gender: M Loc: BP: Ordering: Stacey Clemons Technologist: Ordering Physician: Stacey Clemons Seal Delivery Vehicle Officer: Annie Castillo Gopal Interpreting Physician: Willy Boykin ------ --- Location: [facility] ------ --- INDICATIONS: Pre OP CABG. 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 Enoxaparin (Lovenox). Simvastatin (Zocor). Fenofibrate (Tricor). Calvin n. Diet: Diabetic diet. Allergies: Penicillin allergy. [...] 6:39 pm Signed by: KEVIN DA SILVA [facility] 10-02-2006 CONVERTED ELECTRONIC SIGNATURE KRISSY MONTERO M.D., PATHOLOGIST (Electronic signature on file) Final Signed Out: 10/02/2006 13:35 [facility] CONVERTED FINAL DIAGNOSIS GASTRIC ANTRUM, BIOPSY - CHRONIC ACTIVE GASTRITIS. MICRO-ORGANISMS SUGGESTIVE OF HELICOBACTER PYLORI. NEGATIVE FOR DYSPLASIA OR CARCINOMA. AB/PAS STAIN REVIEWED. [facility] CONVERTED ORDERING PROVIDER Ordering Provider: ELIN GOOD [facility] OCT MACULA CIRRUS OU (BOTH E YES) [facility] Vital Signs Date Time Vital Sign Value Performing Clinician Faci lity 11-05-2024 10:51-0400 Body height 193 cm Chema Hair MD Work Phone: [facility] 11-05-2024 10:51-0400 Body height 193.04 cm Chema Hair MD Work Phone: [facility] 11-05-2024 10:51-0400 Body mass index (BMI) [Ratio] 36.65 kg/m2 Chema Hair MD Work Phone: [facility] 11-05-2024 10:51-0400 Body weight 136 kg Chema Hair MD Work Phone: [facility] 11-05-2024 10:51-0400 Body weight 136.08 kg Chema Hair MD Work Phone: [facility] 11-05-2024 10:51-0400 HGHTCHNVIS Chema Hair MD Work Phone: [facility] 11-05-2024 10:51-0400 VITALSDONE Chema Hair MD Work Phone: [facility] 07-17-2024 12:23-0400 Heart rate 60 /min Amanuel Parisi MD Work Phone: [facility] 07-17-2024 12:23-0400 SaO2% (BldA) [Mass fraction] 97 % Amanuel Parisi MD Work Phone: [facility] 07-17-2024 07:32-0400 Body temperature 97.11 [degF] Amanuel Parisi MD Work Phone: [facility] 07-17-2024 07:32-0400 Diastolic blood pressure 69 mm[Hg] Amanuel Parisi MD Work Phone: [facility] 07-17-2024 07:32-0400 Respiratory rate 18 /min Amanuel Parisi MD Work Phone: [facility] 07-17-2024 07:32-0400 Systolic blood pressure 133 mm[Hg] Amanuel Parisi MD Work Phone: [facility] 07-15-2024 17:31-0400 SaO2% (BldA) [Mass fraction] 92.2 % Amanuel Parisi MD Work Phone: [facility] 07-15-2024 11:40-0400 Body mass index (BMI) [Ratio] 39.74 kg/m2 Amanuel Parisi MD Work Phone: [facility] 07-15-2024 11:40-0400 Body weight 132.9 kg Amanuel Parisi MD Work Phone: [facility] 06-27-2024 11:19-0400 Diastolic blood pressure 69 mm[Hg] Pepe Marino MD Work Phone: [facility] 06-27-2024 11:19-0400 Heart rate 70 /min Pepe Marino MD Work Phone: [facility] 06-27-2024 11:19-0400 Systolic blood pressure 124 mm[Hg] Pepe Marino MD Work Phone: [facility] 06-04-2024 12:13-0500 SaO2% (BldA) [Mass fraction] 93 % Arsh Mar MD Work Phone: [facility] 06-04-2024 08:27-0500 Body temperature 96.49 [degF] Arsh Mar MD Work Phone: [facility] 06-04-2024 08:27-0500 Diastolic blood pressure 71 mm[Hg] Arsh Mar MD Work Phone: [facility] 06-04-2024 08:27-0500 Heart rate 52 /min Arsh Mar MD Work Phone: [facility] 06-04-2024 08:27-0500 Respiratory rate 18 /min Arsh Mar MD Work Phone: [facility] 06-04-2024 08:27-0500 Systolic blood pressure 144 mm[Hg] Arsh Mar MD Work Phone: [facility] 06-04-2024 06:00-0500 Body mass index (BMI) [Ratio] 39.86 kg/m2 Arsh Mar MD Work Phone: [facility] 06-04-2024 06:00-0500 Body weight 133.3 kg Arsh Mar MD Work Phone: [facility] 05-31-2024 10:56-0500 Body height 182.9 cm Arsh Mar MD Work Phone: [facility] 05-30-2024 13:55-0500 SaO2% (BldA) [Mass fraction] 95.9 % Arsh Mar MD Work Phone: [facility] 05-30-2024 09:49-0500 SaO2% (BldA) [Mass fraction] 89.5 % Arsh Mar MD Work Phone: [facility] 05-13-2024 13:10-0500 Body height 185.4 cm Pepe Marino MD Work Phone: [employer] [facility] 05-13-2024 13:10-0500 Body mass index (BMI) [Ratio] 39.58 kg/m2 Pepe Marino MD Work Phone: [facility] 05-13-2024 13:10-0500 Body weight 136.08 kg Pepe Marino MD Work Phone: [employer] 05-13-2024 13:10-0500 Diastolic blood pressure 50 mm[Hg] Pepe Marino MD Work Phone: [facility] 05-13-2024 13:10-0500 Heart rate 68 /min Pepe Marino MD Work Phone: [facility] 05-13-2024 13:10-0500 Systolic blood pressure 100 mm[Hg] Pepe Marino MD Work Phone: [facility] 03-08-2024 08:32-0500 Body height 182.9 cm Sadine Oredein HYDRAULIC BLOCKER - [employer] Work Phone: [employer] 03-08-2024 08:32-0500 Body mass index (BMI) [Ratio] 38.52 kg/m2 Sadine Oredein [employer] Work Phone: [employer] 03-08-2024 08:32-0500 Body weight 128.82 kg Sadine Oredein HYDRAULIC BLOCKER - [employer] Work Phone: [employer] 03-08-2024 08:32-0500 Diastolic blood pressure 48 mm[Hg] Sadine Oredein HYDRAULIC BLOCKER - [employer] Work Phone: [employer] [facility] 03-08-2024 08:32-0500 Heart rate 77 /min Sadine Oredein HYDRAULIC BLOCKER - [employer] Work Phone: [employer] [facility] 03-08-2024 08:32-0500 SaO2% (BldA) [Mass fraction] 95 % Sadine Oredein HYDRAULIC BLOCKER - [employer] Work Phone: [employer] [facility] 03-08-2024 08:32-0500 Systolic blood pressure 96 mm[Hg] Sadine Oredein HYDRAULIC BLOCKER - [employer] Work Phone: [employer] [facility] 12-05-2023 13:07-0400 Diastolic blood pressure 61 mm[Hg] Gulshan Maxine TAVARES Work Phone: [employer] 12-05-2023 13:07-0400 Heart rate 56 /min Gulshan Arreola DO Work Phone: [employer] 12-05-2023 13:07-0400 Respiratory rate 18 /min Gulshan Sanchezy DO Work Phone: [employer] 12-05-2023 13:07-0400 SaO2% (BldA) [Mass fraction] 93 % Gulshan Sanchezy DO Work Phone: [employer] 12-05-2023 13:07-0400 Systolic blood pressure 157 mm[Hg] Gulshan Sanchezy DO Work Phone: [employer] 12-05-2023 13:07-0400 Body temperature 97.3 [degF] Gulshan Arreola DO Work Phone: [employer] 11-30-2023 11:39-0400 Body height 188 cm Gulshan Arreola DO Work Phone: [employer] 11-30-2023 11:39-0400 Body mass index (BMI) [Ratio] 35.82 kg/m2 Gulshan Mckeonffeleta DO Work Phone: [employer] 11-30-2023 11:39-0400 Body weight 126.55 kg Gulshan Arreola DO Work Phone: [employer] 09-14-2023 09:09-0400 Diastolic blood pressure 71 mm[Hg] Rony Arriaza DMD, MD [facility] 09-14-2023 09:09-0400 Heart rate 59 /min Rony Arriaza DMD, MD Work Phone: [employer] 09-14-2023 09:09-0400 Systolic blood pressure 134 mm[Hg] Rony Arriaza DMD, MD [facility] 09-05-2023 09:35-0400 Body height 188 cm Rony Arriaza DMD, MD [facility] 09-05-2023 09:35-0400 Body mass index (BMI) [Ratio] 36.59 kg/m2 Rony Arriaza DMD, MD Work Phone: [facility] 09-05-2023 09:35-0400 Body weight 129.28 kg Rony Arriaza DMD, MD Work Phone: [facility] 08-21-2023 10:08-0400 Body height 185.4 cm Otfried Nilo MARTINEZ Work Phone: [facility] 08-21-2023 10:08-0400 Diastolic blood pressure 62 mm[Hg] Otfried Nilo MARTINEZ Work Phone: [facility] 08-21-2023 10:08-0400 Heart rate 56 /min Otfried Nilo MARTINEZ Work Phone: [facility] 08-21-2023 10:08-0400 SaO2% (BldA) [Mass fraction] 93 % Otfried Nilo MARTINEZ Work Phone: [facility] 08-21-2023 10:08-0400 Systolic blood pressure 108 mm[Hg] Otfried Nilo MARTINEZ Work Phone: [facility] 07-14-2023 11:56-0400 Body height 185.4 cm Mingo Gavin APRN - [employer] Work Phone: [facility] 07-14-2023 11:56-0400 Body mass index (BMI) [Ratio] 36.41 kg/m2 Mingo Gavin APRN - [employer] Work Phone: [facility] 07-14-2023 11:56-0400 Body weight 125.19 kg Mingo Gavin APRN - [employer] Work Phone: [facility] 05-12-2023 10:01-0500 Body height 185.4 cm Mingo Gavin APRN - [employer] Work Phone: [facility] 05-12-2023 10:01-0500 Body mass index (BMI) [Ratio] 36.41 kg/m2 Mingo Gavin APRN - [employer] Work Phone: [employer] 05-12-2023 10:01-0500 Body weight 125.19 kg Mingo Gavin HYDRAULIC BLOCKER - [employer] Work Phone: [employer] 05-12-2023 10:01-0500 Diastolic blood pressure 60 mm[Hg] Mingo Gavin HYDRAULIC BLOCKER - [employer] Work Phone: [employer] 05-12-2023 10:01-0500 Heart rate 62 /min Mingo Gavin HYDRAULIC BLOCKER - [employer] Work Phone: [employer] 05-12-2023 10:01-0500 SaO2% (BldA) [Mass fraction] 98 % Mingo Gavin HYDRAULIC BLOCKER - [employer] Work Phone: [employer] 05-12-2023 10:01-0500 Systolic blood pressure 104 mm[Hg] Mingo Gavin HYDRAULIC BLOCKER - [employer] Work Phone: [employer] 04-24-2023 08:16-0500 Body height 182.9 cm Gulshan Mckeonffey DO Work Phone: [employer] 04-24-2023 08:16-0500 Body mass index (BMI) [Ratio] 37.97 kg/m2 Gulshan Mckeonffey DO Work Phone: [employer] 04-24-2023 08:16-0500 Body weight 127.01 kg Gulshan Mckeonffey DO Work Phone: [employer] 04-24-2023 07:45-0500 Diastolic blood pressure 51 mm[Hg] Gulshan Mckeonffey DO Work Phone: [employer] 04-24-2023 07:45-0500 Heart rate 68 /min Gulshan Skiffey DO Work Phone: [employer] 04-24-2023 07:45-0500 Respiratory rate 18 /min Gulshan Skiffey DO Work Phone: [employer] 04-24-2023 07:45-0500 SaO2% (BldA) [Mass fraction] 94 % Gulshan Mckeonffey DO Work Phone: [employer] 04-24-2023 07:45-0500 Systolic blood pressure 112 mm[Hg] Gulshan Arreola DO Work Phone: [facility] 04-23-2023 20:11-0500 Body temperature 97.59 [degF] Gulshan Arreola DO Work Phone: [facility] 02-22-2023 10:01-0500 Body mass index (BMI) [Ratio] 33.64 kg/m2 Otfried Nilo MARTINEZ Work Phone: [facility] 02-22-2023 10:01-0500 Body weight 118.84 kg Otfried Nilo MARTINEZ Work Phone: [facility] 02-22-2023 10:01-0500 Diastolic blood pressure 62 mm[Hg] Otfried Nilo MARTINEZ Work Phone: [facility] 02-22-2023 10:01-0500 Heart rate 102 /min Otfried Nilo MARTINEZ Work Phone: [facility] 02-22-2023 10:01-0500 SaO2% (BldA) [Mass fraction] 98 % Otfried Nilo MARTINEZ Work Phone: [facility] 02-22-2023 10:01-0500 Systolic blood pressure 130 mm[Hg] Otfried Nilo MARTINEZ Work Phone: [facility] 12-13-2022 11:57-0400 Body height 188 cm David Chen MD Work Phone: [facility] 12-13-2022 11:57-0400 Body mass index (BMI) [Ratio] 37.88 kg/m2 David Chen MD Work Phone: [facility] 12-13-2022 11:57-0400 Body weight 133.81 kg David Chen MD Work Phone: [facility] 12-13-2022 11:57-0400 Diastolic blood pressure 64 mm[Hg] David Chen MD Work Phone: [facility] 12-13-2022 11:57-0400 Heart rate 72 /min David Chen MD Work Phone: [facility] 12-13-2022 11:57-0400 Systolic blood pressure 102 mm[Hg] David Chen MD Work Phone: [facility] 07-18-2022 15:36-0400 Body temperature 98.1 [degF] Chelle Troncoso Work Phone: [facility] 07-18-2022 15:36-0400 Diastolic blood pressure 75 mm[Hg] Chelle Troncoso Work Phone: [facility] 07-18-2022 15:36-0400 Heart rate 60 /min Chelle Troncoso Work Phone: [facility] 07-18-2022 15:36-0400 Respiratory rate 20 /min Chelle Troncoso Work Phone: [facility] 07-18-2022 15:36-0400 SaO2% (BldA) [Mass fraction] 95 % Chelle Troncoso Work Phone: [facility] 07-18-2022 15:36-0400 Systolic blood pressure 139 mm[Hg] Chelle Troncoso Work Phone: [facility] 07-18-2022 13:41-0400 Body height 188 cm Chelle Troncoso Work Phone: [facility] 07-18-2022 13:41-0400 Body mass index (BMI) [Ratio] 38.52 kg/m2 Chelle Troncoso Work Phone: [facility] 07-18-2022 13:41-0400 Body weight 136.08 kg Chelle Troncoso Work Phone: [facility] 06-07-2022 11:39-0500 Body height 188 cm David Chen MD Work Phone: [facility] 06-07-2022 11:39-0500 Body mass index (BMI) [Ratio] 37.49 kg/m2 David Chen MD Work Phone: [email or web address] [facility] 06-07-2022 11:39-0500 Body weight 132.45 kg David Chen MD Work Phone: [facility] 06-07-2022 11:39-0500 Diastolic blood pressure 59 mm[Hg] David Chen MD Work Phone: [facility] 06-07-2022 11:39-0500 Heart rate 76 /min David Chen MD Work Phone: [facility] 06-07-2022 11:39-0500 Systolic blood pressure 90 mm[Hg] David Chen MD Work Phone: [facility] 04-27-2022 08:00-0500 Body height 188 cm [place] VERTILAS [facility] 04-27-2022 08:00-0500 Body mass index (BMI) [Ratio] 36.98 kg/m2 [place] [employer] [facility] 04-27-2022 08:00-0500 Body weight 130.64 kg [place] [employer] [facility] 05-06-2019 23:30-0500 Diastolic blood pressure 54 mm[Hg] Barry Guadalupe MD Work Phone: [facility] Work Phone: 05-06-2019 23:30-0500 Heart rate 67 /min Barry Guadalupe MD Work Phone: [facility] Work Phone: 05-06-2019 23:30-0500 Respiratory rate 20 /min Barry Guadalupe MD Work Phone: [facility] Work Phone: 05-06-2019 23:30-0500 Systolic blood pressure 115 mm[Hg] Barry Guadalupe MD Work Phone: [facility] Work Phone: 05-06-2019 22:30-0500 SaO2% (BldA) [Mass fraction] 93 % Barry Guadalupe MD [facility] Phone: [facility] Work Phone: 05-06-2019 20:05-0500 Body temperature 98.2 [degF] Barry Guadalupe MD Work Phone: [facility] Work Phone: 04-12-2019 17:10-0500 Diastolic blood pressure 65 mm[Hg] James Begum MD Work Phone: [employer] Work Phone: 04-12-2019 17:10-0500 Heart rate 65 /min James Begum MD Work Phone: [employer] Work Phone: 04-12-2019 17:10-0500 Respiratory rate 18 /min James Begum MD Work Phone: [facility] Work Phone: 04-12-2019 17:10-0500 SaO2% (BldA) [Mass fraction] 99 % James Begum MD Work Phone: [employer] Work Phone: 04-12-2019 17:10-0500 Systolic blood pressure 132 mm[Hg] James Begum MD Work Phone: [employer] Work Phone: 04-12-2019 15:42-0500 Body height 188 cm James Begum MD Work Phone: [employer] Work Phone: 04-12-2019 15:42-0500 Body mass index (BMI) [Ratio] 37.75 kg/m2 James Begum MD Work Phone: [employer] Work Phone: 04-12-2019 15:42-0500 Body temperature 98.01 [degF] James Begum MD Work Phone: [employer] Work Phone: 04-12-2019 15:42-0500 Body weight 133.36 kg James Begum MD Work Phone: [employer] Work Phone: Encounters Encounter Date Encounter Type Care Provider Facility Start: 11-07-2024 Visit out of hours Chema Valle MD Work Phone: [employer] Work Phone: Start: 11-05-2024 In-person encounter Chema mayer MD Work Phone: [facility] Work Phone: Start: 10-24-2024 ambulatory Chelle GARCIA Facil ity:[facility] Start: 10-24-2024 Registered Referred Chelle Troncoso -[facility] [place] [address] Start: 10-06-2024 ambulatory Chelle GARCIA Facil ity:[facility] Start: 10-06-2024 Registered Referred Chelle Troncoso -[facility] [place] - [address] Start: 09-30-2024 End: 09-30-2024 Departed Referred Chelle Troncoso -[facility] [place] - [address] Start: 09-30-2024 End: 09-30-2024 ambulatory Chelle GARCIA -[facility] [address] Start: 09-25-2024 End: 09-25-2024 ambulatory Chelle GARCIA -[facility] [place] - [address] Start: 09-25-2024 End: 09-25-2024 Departed Referred Chelle Troncoso -[facility] [place] - [address] Start: 09-25-2024 Registered Referred Chelle Troncoso -[facility] [place] - [address] Start: 09-25-2024 End: 09-25-2024 ambulatory Chelle Ashbyer RADHA Facility:[facility] Start: 09-23-2024 ambulatory Chelle GARCIA Facil ity:[facility] Start: 09-23-2024 Registered Referred Chelle Troncoso -[facility] [place] - [address] Start: 07-15-2024 End: 07-17-2024 Evaluation and management of inpatient Amanuel Parisi MD Work Phone: [facility] Medical Surgical Unit MSU 4S Comment on above: Hematemesis (Primary Dx); Coffee ground emesis Start: 07-01-2024 End: 07-01-2024 ambulatory Chelle Ashbyer RADHA [facility] Work Phone: Start: 07-01-2024 End: 07-01-2024 Departed Referred Chelle Cruz - [address] Start: 07-01-2024 End: 07-01-2024 ambulatory Chelle GARCIA Facility:[facility] Start: 06-27-2024 End: 06-27-2024 Patient encounter procedure Pepe Marino MD Work Phone: [facility] Urology [facility] Comment on above: BPH with lower urina ry tract symptoms without urinary obstruction; Urge incontinence; Elevated PSA; Gross hematuria Start: 06-27-2024 End: 06-27-2024 [facility] Start: 06-02-2024 End: 06-02-2024 Telephone encounter Emmy Ramirez MD Work Phone: [facility] Pulmonary and Sleep Medicine [facility] Start: 05-30-2024 End: 06-04-2024 Evaluation and management of inpatient Arsh Mar MD Work Phone: [facility] Cardiac Progressive Care Unit PCU 2E Comment on above: Acute hypercapnic re spiratory failure (HCC) (Primary Dx); Hypercapnia; Hypoxia Start: 05-22-2024 End: 05-22-2024 Subsequent hospital visit by physician Pepe Marino MD Work Phone: [facility] Comment on above: Recurrent UTI Start: 05-22-2024 End: 05-22-2024 ambulatory [facility] Start: 05-14-2024 ambulatory Chelle GARCIA Facil ity:[facility] Start: 05-14-2024 Registered Referred Chelle Cruz - [address] Start: 05-13-2024 End: 05-13-2024 ambulatory [facility] Start: 05-13-2024 End: 05-13-2024 Office outpatient new 45 minutes Pepe Marino MD Work Phone: [facility] Comment on above: Elevated PSA (Primar y Dx); BPH with lower urinary tract symptoms without urinary obstruction; Urge incontinence; Gross hematuria; Recurrent UTI; Retention of urine, unspecified Start: 05-02-2024 End: 05-02-2024 Telephone encounter Pepe Marino MD Work Phone: [facility] Urology - [place] Start: 04-01-2024 End: 04-01-2024 Departed Referred Chelle Cruz - [address] Start: 04-01-2024 End: 04-01-2024 ambulatory Chelle GARCIA Facility:[facility] Start: 03-26-2024 End: 03-26-2024 Departed Referred Chelle Cruz - [address] Start: 03-26-2024 End: 03-26-2024 ambulatory Chelle GARCIA Facility:[facility] Start: 03-08-2024 End: 03-08-2024 ambulatory [facility] Start: 03-08-2024 End: 03-08-2024 Office outpatient visit 25 minutes Che Carrasco CNP Work Phone: [facility] Cardiology [facility] Comment on above: Coronary artery dise ase involving coronary bypass 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 (Primary Dx); Chest pain, unspecified type; Mixed hyperlipidemia Start: 03-08-2024 End: 03-08-2024 ambulatory [facility] Start: 02-19-2024 End: 02-19-2024 ambulatory Chelle GARCIA Facility:[facility] Start: 01-01-2024 ambulatory Chelle GARCIA Facil ity:[facility] Start: 12-06-2023 ambulatory Chelle GARCIA Facil ity:[facility] Start: 11-29-2023 End: 11-29-2023 Subsequent hospital visit by physician [facility] [address] Exam Room [address] [facility] [address] Comment on above: Arrived Start: 11-29-2023 End: 11-29-2023 Emergency department patient visit GULSHAN ARREOLA [facility] Start: 11-29-2023 End: 12-05-2023 Evaluation and management of inpatient Gulshan Arreola DO Work Phone: [facility] Cardiac Post Intervention Progressive Care Unit CPI PCU 4W Comment on above: Closed head injury, initial encounter (Primary Dx); Fall, initial encounter; Pain in both knees, unspecified chronicity Start: 09-14-2023 End: 09-14-2023 Patient encounter procedure Rony Arriaza DMD, MD Work Phone: [facility] Oral Surgery Comment on above: Chronic dental liana s extending to pulp (Primary Dx) Start: 09-14-2023 ambulatory [facility]KNOWN [facility]ER [facility] Start: 09-05-2023 ambulatory KLEVER ÁLVAREZ Facility :[facility] Start: 09-05-2023 End: 09-05-2023 Patient encounter procedure Rony Arriaza DMD, MD Work Phone: [facility] Oral Surgery Comment on above: Caries (Primary Dx) Start: 08-21-2023 End: 08-21-2023 Office outpatient visit 25 minutes Otkillian Corcoran MD Work Phone: [facility] Cardiology Comment on above: 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 ; Dyslipidemia Start: 07-14-2023 End: 07-14-2023 Subsequent hospital visit by physician Mingo Gavin APRN - [employer] Work Phone: [facility] Non-Invasive Cardiology Comment on above: Coronary artery dise ase involving nenana coronary artery of nenana heart without angina pectoris; Stable angina pectoris Start: 07-13-2023 Documentation procedure Loretta oates RN [facility] Non-Invasive Cardiology Start: 07-13-2023 End: 07-13-2023 ambulatory [facility] Work Phone: Start: 07-13-2023 End: 07-13-2023 Departed Referred [facility] - [address] Start: 06-06-2023 End: 06-06-2023 ambulatory CHELLE TRONCOSO Facility:[facility] Start: 06-06-2023 End: 06-06-2023 Patient encounter procedure [facility]ix[facility] Stephens [facility] Comment on above: Type 2 diabetes ran itus without retinopathy (HCC) (Primary Dx); Nonexudative age-related macular degeneration, bilateral, early dry stage; Cataract, nuclear sclerotic, both eyes Start: 05-12-2023 End: 05-12-2023 Office outpatient visit 25 minutes Mingo Gavin HYDRAULIC BLOCKER - [employer] Work Phone: [facility] Cardiology Comment on above: Coronary artery dise ase involving nenana coronary artery of nenana heart without angina pectoris (Primary Dx); Stable angina pectoris Start: 05-02-2023 End: 05-02-2023 ambulatory [facility] Work Phone: Start: 05-02-2023 End: 05-02-2023 Departed Referred [facility] - [address] Start: 04-24-2023 Documentation procedure Loretta oates RN [facility] Non-Invasive Cardiology Start: 04-24-2023 Telephone encounter Indy esqueda PA-C Work Phone: [facility] Cardiology Start: 04-23-2023 End: 04-24-2023 Emergency department patient visit Gulshan Arreola Work Phone: [facility] Clinical Decision Unit CDU Comment on above: Chest pain, unspecif ied type (Primary Dx); Other chest pain Start: 02-22-2023 End: 02-22-2023 Office outpatient visit 25 minutes Shannan Corcoran MD Work Phone: [facility] Cardiology Comment on above: Coronary artery dise ase involving nenana coronary artery of nenana heart without angina pectoris (Primary Dx); Dyslipidemia Start: 12-13-2022 End: 12-13-2022 Office outpatient visit 40 minutes David Rodriguez MD Work Phone: [facility] General Surgery Comment on above: Functional diarrhea (Primary Dx) Start: 12-01-2022 End: 12-01-2022 [facility] Work Phone: Start: 12-01-2022 End: 12-01-2022 Departed Referred [facility] - [address] Start: 10-13-2022 End: 10-13-2022 ambulatory [facility] Work Phone: Start: 10-13-2022 End: 10-13-2022 Departed Referred [facility] - [address] Start: 10-12-2022 End: 10-12-2022 ambulatory [facility] Work Phone: Start: 10-12-2022 End: 10-12-2022 Departed Referred [facility] - [address] Start: 10-12-2022 Registered Referred [facility] - [address] Start: 07-18-2022 End: 07-18-2022 Subsequent hospital visit by physician Chelle Troncoso Work Phone: [facility] Comment on above: Irritable bowel synd sage with both constipation and diarrhea (Primary Dx); Anemia, unspecified; Mixed irritable bowel syndrome; Encounter for screening for malignant neoplasm of colon Start: 06-07-2022 End: 06-07-2022 Office outpatient new 45 minutes David Rodriguez MD Work Phone: [facility] General Surgery Comment on above: Irritable bowel synd sage with both constipation and diarrhea (Primary Dx) Start: 05-06-2022 End: 05-06-2022 Patient encounter procedure Wilma Grant OD Work Phone: [facility] Comment on above: Type 2 diabetes ran itus without retinopathy (HCC) (Primary Dx); Nonexudative age-related macular degeneration, bilateral, early dry stage; Cataract, nuclear sclerotic, both eyes; Papilloma of left upper eyelid; Tearing eyes Start: 04-27-2022 End: 04-27-2022 Subsequent hospital visit by physician Alicia Hansen Echo/Stress [facility] 1 Alicia Hansen Stress Comment on above: Coronary artery dise ase involving nenana coronary artery of nenana heart without angina pectoris; Other congestive heart failure (HCC) Start: 05-06-2019 End: 05-06-2019 Emergency department patient visit Barry Guadalupe MD Work Phone: [facility] Comment on above: Hyperkalemia (Primar y Dx); Acute renal failure, unspecified acute renal failure type (HCC) Start: 05-01-2019 End: 05-01-2019 Subsequent hospital visit by physician Haydee Lai MD Work Phone: [facility] Start: 04-12-2019 End: 04-12-2019 Emergency department patient visit James Begum MD Work Phone: [facility] Comment on above: Acute exacerbation o f chronic low back pain (Primary Dx) Start: 08-09-2018 Patient encounter procedure Melquiades Gaming [facility] Start: 12-29-2017 Patient encounter Melquiades Colon [facility] Start: 12-17-2017 Emergency department patient visit Pedro Rincon [facility] Start: 11-03-2017 Emergency department patient visit UNKNOWN PROVIDER [facility] Start: 10-16-2017 Evaluation and management of inpatient Stacey Clemons [facility] Start: 10-13-2017 Patient encounter Stacey Clemons [facility] Start: 09-24-2017 Emergency department patient visit Willy Reeder [facility] Start: 08-07-2017 Evaluation and management of inpatient UNKNOWN PROVIDER [facility] Start: 09-28-2006 End: 09-28-2006 Patient encounter procedure Elin Munozmar Work Phone: [facility] Start: 09-28-2006 Results Only Elin Estefani hernandez Work Phone: [facility] Procedures Date Procedure Procedure Detail Performing Clinician Start: 11-07-2024 Blood pressure scree leonora not performed - reason not given Chema Hair MD Work Phone: Start: 11-07-2024 BMI documented as ab ove normal parameters - follow-up documented Chema Hair MD Work Phone: Start: 11-07-2024 Documentation of cur rent medications Chema Hair MD Work Phone: Start: 11-07-2024 Osteoarthritis sympt oms and functional status not assessed Chema Hair MD Work Phone: Start: 11-07-2024 Pain assessment docu mented as positive - no follow-up/reason not given Chema Hair MD Work Phone: Start: 11-07-2024 Pt scrnd tobacco use rcvd tobacco cessation talk Chema Hair MD Work Phone: Start: 10-24-2024 Urine culture Chelle Galvez Start: 10-24-2024 Urnls dip stick/tabl et reagent auto microscopy Chelle GARCIA Start: 10-06-2024 Measurement of occul t blood in stool specimen using immunoassay Chelle GARCIA Start: 09-30-2024 Measurement of occul t blood in stool specimen using immunoassay Chelle GARCIA Start: 09-25-2024 Total iron binding c apacity measurement Chelle GARCIA Start: 07-17-2024 Glucose quantitative blood xcpt reagent [...] Work Phone: Start: 07-15-2024 Blood gases any comb ination ph pco2 po2 co2 hco3 Bethany Sandhu MD Work Phone: Start: 07-15-2024 Glucose quantitative blood xcpt reagent strip Amanuel Parisi MD Work Phone: Start: 07-15-2024 SARS-COV-2, FLU A/B, AND RSV COMBO Amanuel Parisi MD Work Phone: Start: 07-15-2024 Radiologic exam ches t single view Amanuel Parisi MD Work Phone: Start: 07-15-2024 Antibody screen CHELLE TRONCOSO Comment on above: Performed By: #### L [id number] ####Hard Tile Setter: CLARE SIMONS ([phone])[facility] ([facility])[address] Start: 07-15-2024 Blood typing serologic abo [...] 06-04-2024 Comprehensive metabo lic panel Krissy Murillo HY[employer]AULIC BLOCKER - [employer] Work Phone: Start: 06-03-2024 Glucose quantitative blood xcpt reagent strip Manjinder Sanchez MD Work Phone: Start: 06-03-2024 Glucose quantitative blood xcpt reagent strip Manjinder Sanchez MD Work Phone: Start: 06-03-2024 Glucose quantitative blood xcpt reagent strip Manjinder Sanchez MD Work Phone: Start: 06-03-2024 End: 06-03-2024 Comprehensive metabolic panel Krissy Murillo HYDRAULIC BLOCKER [facility] Work Phone: Start: 06-02-2024 Glucose quantitative blood xcpt reagent strip Manjinder Sanchez MD Work Phone: Start: 06-02-2024 OXYGEN THERAPY Jaymie A Njus PA-C Work Phone: Start: 06-02-2024 Glucose quantitative blood xcpt reagent strip Manjinder Sanchez MD Work Phone: Start: 06-02-2024 Glucose quantitative blood xcpt reagent strip Manjinder Sanchez MD Work Phone: Start: 06-02-2024 Glucose quantitative blood xcpt reagent strip Manjinder Sanchez MD Work Phone: Start: 06-02-2024 OXYGEN THERAPY Jaymie A Njus PA-C Work Phone: Start: 06-02-2024 OXYGEN THERAPY Jaymie A Njus PA-C Work Phone: Start: 06-02-2024 Basic metabolic pane l calcium total Haydee Willis DO Work Phone: Start: 06-02-2024 Manual Differential panel - Blood Jaymie A Njus PA-C Work Phone: Start: 06-01-2024 Glucose quantitative [...] 05-31-2024 Manual Differential panel - Blood Jaymie Prieto Hernandezus PA-C Work Phone: Start: 05-30-2024 Glucose quantitative [...] Work Phone: Start: 05-30-2024 Blood gases any comb ination ph pco2 po2 co2 hco3 Haydee Willis saambaa Work Phone: Start: 05-30-2024 Iadna s aureus methi cillin resist amp probe tq Haydee [employer] Work Phone: Start: 05-30-2024 Glucose quantitative blood xcpt reagent strip Haydee Willis saambaa Work Phone: Start: 05-30-2024 Assay of troponin quantitative Arsh Mar MD Work Phone: Start: 05-30-2024 End: 05-30-2024 Bacteria identified in Blood by Culture Arsh Mar MD Work Phone: Start: 05-30-2024 Blood gases any comb ination ph pco2 po2 co2 hco3 Arsh Mar [...] Nasopharynx by JOAN with non-probe detection Haydee [employer] Work Phone: Start: 05-30-2024 SARS-COV-2, FLU A/B, [...] ast 12 lds trcg only w/o i&r Shannan Corcoran MD Work Phone: Start: 03-08-2024 Follow-up visit CHELLE TRONCOSO Start: 12-05-2023 Glucose quantitative blood xcpt reagent strip Romario Munoz MD Work Phone: Start: 12-05-2023 Glucose quantitative blood xcpt reagent strip Romario Mnuoz MD Work Phone: Start: 12-05-2023 Comprehensive metabo [...] or tooth spaces, per quadrant Jacqui Glass DDS Work Phone: Start: 09-14-2023 extraction, erupted tooth or exposed root (elevation and/or forceps removal) Rami Laham DDS Work Phone: Start: 09-06-2023 panoramic radiograph ic image Wayne Gupta DDS Work Phone: Start: 07-14-2023 TTE w or w/o contr, cont ECG Mingo Gavin [employer]IC [employer]ER [employer] Work Phone: Start: 04-24-2023 Glucose quantitative blood xcpt reagent strip Robbie Mckeon MD Work Phone: Start: 04-24-2023 Glucose quantitative blood xcpt reagent strip Gulshan Arreola DO Work Phone: Start: 04-24-2023 Ecg routine ecg w/le ast 12 lds trcg only w/o i&r Maya Girard [employer]AULIC BLOCKER [employer] Work Phone: Start: 04-24-2023 Comprehensive metabo lic panel Maya Girard [employer]IC BLOCKER [employer] Work Phone: Start: 04-24-2023 Lipid panel Maya Nayak HYDRAULIC BLOCKER - [employer] Work Phone: Start: 04-24-2023 Lipid 1996 panel [...] TTE w or wo fol Campos russell MD Work Phone: Start: 04-13-2022 Lipid 1996 [...] DTaP/Tdap/Td Vaccines (2 - Td or Tdap) [email or web address] Start: 07-18-2032 Screening for malignant neoplasm of colon [facility] Start: 05-23-2027 Colon cancer screen colonoscopy Colon cancer screen colonoscopy [facility] Work Phone: Start: 05-23-2027 Screening for malignant neoplasm of colon [email or web address] Start: 07-17-2025 Creatinine measurement Creatinine Level [email or web address] [facility] Start: 07-17-2025 Diabetes: Estimated Glomerular Filtration Rate for [facility] Diabetes: Estimated Glomerular Filtration Rate for Kidney Health [email or web address] [facility] Start: 07-17-2025 Potassium measurement Potassium Level [employer] [facility] Start: 07-15-2025 Hemoglobin A1c measurement Diabetes: Hemoglobin A1C [email or web address] Start: 06-04-2025 Creatinine measurement Creatinine Level [email or web address] Start: 06-04-2025 Diabetes: Estimated Glomerular Filtration Rate for Kidney Health Diabetes: Estimated Glomerular Filtration Rate for Kidney Health [email or web address] Start: 06-04-2025 Potassium measurement Potassium Level [email or web address] Start: 06-02-2025 Creatinine measurement Creatinine Level [email or web address] Start: 06-02-2025 Diabetes: Estimated Glomerular Filtration Rate for Kidney Health Diabetes: Estimated Glomerular Filtration Rate for Kidney Health [facility] Start: 06-02-2025 Potassium measurement Potassium Level [facility] Start: 03-08-2025 Creatinine measurement Creatinine Level [facility] Start: 03-08-2025 Diabetes: Estimated Glomerular Filtration Rate for Kidney Health Diabetes: Estimated Glomerular Filtration Rate for Kidney Health [facility] Start: 03-08-2025 Potassium measurement Potassium Level [facility] Start: 02-27-2025 Glaucoma screening Diabetes: Retinopathy Screening [facility] Start: 12-16-2024 Influenza vaccination Influenza Vaccine (Season Ended) [facility] Start: 12-04-2024 Creatinine measurement Creatinine Level [facility] Start: 12-04-2024 Diabetes: Estimated Glomerular Filtration Rate for Kidney Health Diabetes: Estimated Glomerular Filtration Rate for Kidney Health [facility] Start: 12-04-2024 Potassium measurement Potassium Level [facility] Start: 12-01-2024 Glaucoma screening Diabetes: Retinopathy Screening [facility] Start: 11-30-2024 Creatinine measurement Creatinine Level [facility] Start: 11-30-2024 Diabetes: Estimated Glomerular Filtration Rate for Kidney Health Diabetes: Estimated Glomerular Filtration Rate for Kidney Health [facility] Start: 11-30-2024 Potassium measurement Potassium Level [facility] Start: 11-29-2024 Echocardiography Echocardiogram [facility] Start: 11-29-2024 Hemoglobin A1c measurement Diabetes: Hemoglobin A1C [facility] Start: 11-29-2024 Lipid panel Lipid Panel [facility] Start: 09-27-2024 End: 09-27-2024 Patient encounter procedure 09/27/2024 10:30 AM EDT Office Visit [facility] [place] [address] [place] [phone] Pepe Marino MD [address] [place] [address] [facility] [place] Start: 08-05-2024 End: 08-05-2024 Patient encounter procedure 08/05/2024 10:00 AM EDT Office Visit [facility] - [place] [address] [place] [phone] Shannan Corcoran MD [address] [facility] [address] [place] [address] [facility] [place] Start: 07-31-2024 End: 07-31-2024 Patient encounter procedure 07/31/2024 1:40 PM EDT Office Visit [facility] Pulmonary and Sleep Medicine [facility] [address] [place] [address] Viki Ball APRN - [employer] [address] [place] [address] [facility] Start: 06-27-2024 End: 12-28-2024 PSA, Monitoring ([facility]) PSA, Monitoring ([facility]) Lab Routine Elevated PSA Expected: 06/27/2024 (Approximate), Expires: 12/28/2024 [facility] Work Phone: Comment on above: Expected: 06/27/2024 (Approximate), Expi res: 12/28/2024 Start: 06-27-2024 End: 06-27-2024 Patient encounter procedure 06/27/2024 11:20 AM EDT Procedure Visit [facility] [place] [address] [place] [phone] Pepe Marino MD [address] [place], [place] [id number] [facility] [place] Start: 06-19-2024 End: 06-19-2024 Patient encounter procedure 06/19/2024 11:40 AM EST Office Visit [facility] Pulmonary and Sleep Medicine [facility] [address] [place] [address] Viki Ball APRN - [employer] [address] [place] [address] [facility] Start: 06-06-2024 Glaucoma screening Dilated Retinal Exam [facility] Start: 06-04-2024 End: 06-04-2025 Nasal Cannula- Oxygen Therapy Nasal Cannula- Oxygen Therapy Respiratory Care Routine Acute hypercapnic respiratory failure (HCC) Expected: 06/04/2024 (Approximate), Expires: 06[facility]04/2025 [facility]: Comment on above: Expected: 06/04/2024 (Approximate), Expi res: 06/04/2025 Start: 05-13-2024 End: 11-10-2024 PSA, Monitoring ([facility]) PSA, Monitoring ([facility]) Lab Routine Elevated PSA Expected: 05/13/2024 (Approximate), Expires: 11/10/2024 [facility] Work Phone: Comment on above: Expected: 05/13/2024 (Approximate), Expi res: 11/10/2024 Start: 05-13-2024 End: 05-13-2025 XR Abdomen Single view XR abdomen 1 view Imaging Routine Recurrent UTI Expected: 05/13/2024, Expires: 05/13/2025 [facility] Comment on above: Expected: 05/13/2024, Expires: Start: 05-13-2024 End: 05-13-2024 Patient encounter procedure 05/13/2024 1:00 PM EST Office Visit [facility] [place] [address] [place] [address] Pepe Marino MD [address] [place], [place] [id number] [facility] [place] Start: 04-24-2024 Creatinine measurement [facility] Start: 04-24-2024 Hepatitis B surface antibody level LDL Cholesterol [facility] Start: 04-24-2024 Lipid panel [facility] Start: 04-24-2024 Potassium measurement Potassium Level [facility] Start: 02-21-2024 End: 02-21-2024 Patient encounter procedure 02/21/2024 10:00 AM EST Office Visit [facility] Cardiology [address] [place] [phone] Che Alegria, HYDRAULIC BLOCKER - [employer] [address] [place] [address] [facility] Start: 01-13-2024 Hemoglobin A1c measurement Hemoglobin A1C [facility] Start: 12-17-2023 COVID-19 Vaccine ( season) COVID-19 Vaccine ( season) [facility] Start: 12-17-2023 Influenza vaccination [facility] Start: 12-02-2023 Glaucoma screening [facility] Start: 08-21-2023 End: 08-21-2023 Patient encounter procedure [facility] Start: 07-14-2023 End: 07-14-2023 Patient encounter procedure 07/14/2023 11:00 AM EDT Appointment [facility] Non-Invasive Cardiology [address] [place] [phone] Mingo Gavin, HYDRAULIC BLOCKER - [employer] [address] [place] [address] [facility] Non-Invasive Cardiology Start: 05-12-2023 End: 05-12-2025 Stress echocardiogram (TTE) dobutamine with contrast, bubble, strain, and 3D PRN order panel Stress echocardiogram (TTE) dobutamine with contrast, bubble, strain, and 3D PRN order panel CV Stress Echocardiography Routine Coronary artery disease involving nenana coronary artery of nenana heart without angina pectoris Stable angina pectoris Expected: 05/12/2023 (Approximate), Expires: 05/12/2025 [facility] Work Phone: Comment on above: Expected: 05/12/2023 (Approximate), Expi res: 05/12/2025 Start: 05-12-2023 End: 05-12-2023 Patient encounter procedure 05/12/2023 10:00 AM EST Office Visit [facility] Cardiology [address] [place] [phone] Mingo Gavin, HYDRAULIC BLOCKER - [employer] [address] [place] [address] [facility] Start: 05-06-2023 Hepatitis C antibody, confirmatory test DILATED RETINAL EXAM [facility] Start: 05-05-2023 End: 05-05-2023 Patient encounter procedure 05/05/2023 11:30 AM EST Office Visit [facility] Cardiology [address] [place] [phone] Miranda Griffin, HYDRAULIC BLOCKER - [employer] [address] [place] [address] [facility] Start: 05-05-2023 End: 05-05-2023 Patient encounter procedure 05/05/2023 8:30 AM EST Office Visit [facility] Cardiology [address] [place] [phone] Mingo Gavin, HYDRAULIC BLOCKER - [employer] [address] [place] [address] [facility] Start: 04-27-2023 Echocardiography Echocardiogram [facility] Start: 04-17-2023 Advance Directive Discussion Advance Directive Discussion [facility] Start: 04-17-2023 Depression Assessment Depression Assessment [facility] Start: 04-13-2023 Creatinine measurement Creatinine Level [facility] Start: 04-13-2023 Lipid panel Lipid Panel [facility] Start: 04-13-2023 Potassium measurement Potassium Level [facility] Start: 02-27-2023 End: 02-27-2023 Patient encounter procedure 02/27/2023 10:30 AM EST Office Visit [facility] Cardiology [address] [place] [phone] Shannan Corcoran MD [address] [place] [address] [facility] Start: 12-16-2022 COVID-19 Vaccine ( season) COVID-19 Vaccine ( season) [facility] Start: 12-16-2022 COVID-19 Vaccine ( season) COVID-19 Vaccine ( season) [facility] Start: 12-16-2022 COVID-19 Vaccine ( season) COVID-19 Vaccine () [facility] Start: 12-16-2022 Influenza vaccination [facility] Start: 08-05-2022 End: 08-05-2022 Patient encounter procedure 08/05/2022 Office Visit Cardiology Mingo Gavin, HYDRAULIC BLOCKER - [employer] [address] [place] [address] [facility] Start: 07-18-2022 End: 07-18-2022 Colonoscopy flx [...] encounter procedure 07/15/2022 Office Visit Cardiology Mingo Gavin, HYDRAULIC BLOCKER - [employer] [address] [place] [address] [facility] Start: 06-29-2022 COVID-19 Vaccine (7 - Pfizer series) COVID-19 Vaccine (7 - Pfizer series) [facility] Start: 04-17-2022 ADVANCE DIRECTIVE DISCUSSION ADVANCE DIRECTIVE DISCUSSION [facility] Start: 04-17-2022 DEPRESSION ASSESSMENT DEPRESSION ASSESSMENT [facility] Start: 12-16-2021 Influenza vaccination [facility] Start: 12-17-2019 Influenza vaccination INFLUENZA (#1) [facility] Start: 08-14-2019 End: 08-14-2019 Patient encounter procedure 08/14/2019 Office Visit Urology Wilma Powell PA-C [address] [address] [phone] [facility] Start: 12-17-2018 Creatinine monitoring Creatinine monitoring [facility] Work Phone: Start: 12-17-2018 Potassium monitoring Potassium monitoring [facility] Work Phone: Start: 12-16-2018 Influenza vaccination Flu vaccine (#1) [employer] Work Phone: Start: 10-19-2018 A1C test (Diabetic or Prediabetic) A1C test (Diabetic or Prediabetic) [employer] Work Phone: Start: 09-24-[address] lung screening Low dose CT lung screening [employer] Work Phone: Start: 04-22-2018 Hemoglobin A1c measurement HbA1C [facility] Start: 09-01-2017 Diabetes: Urine Albumin-Creatinine Ratio for [facility] Diabetes: Urine Albumin-Creatinine Ratio for Kidney Health [facility] Start: 09-01-2017 Diabetic microalbuminuria test Diabetic microalbuminuria test [employer] Work Phone: Start: 06-07-2017 Hemoglobin A1c/Hemoglobin.total in Blood HBA1C [facility] Start: 05-10-2017 Lipid screen Lipid screen [employer] Work Phone: Start: 10-04-2016 3 comp foot exam completed Diabetic foot exam [employer] Work Phone: Start: 2016 Hepatitis B (HBV) Vaccine (optional start 60+ years) Hepatitis B (HBV) Vaccine (optional start 60+ years) [facility] Start: 2016 Hepatitis B Vaccines (1 of 3 - Risk 3-dose series) Hepatitis B Vaccines (1 of 3 - Risk 3-dose series) [facility] Start: 2016 RSV Immunization aged 60 or older (1 - 1-dose 60+ series) RSV Immunization aged 60 or older (1 - 1-dose 60+ series) [facility] Start: 2016 RSV Immunization for Adults (1 - Risk 60-74 years 1-dose series) RSV Immunization for Adults (1 - Risk 60-74 years 1-dose series) [facility] Start: 2016 RSV Vaccine (1 - 1-dose 60+ series) RSV Vaccine (1 - 1-dose 60+ series) [facility] Start: 2016 RSV vaccine (optional 60+ years) RSV vaccine (optional 60+ years) [facility] Start: 02-16-2016 Pneumococcal Vaccine: 50+ Years (2 of 2 - PCV) Pneumococcal Vaccine: 50+ Years (2 of 2 - PCV) [facility] Start: 02-16-2016 Pneumococcal Vaccine: 65+ Years (2 - PCV) Pneumococcal Vaccine: 65+ Years (2 - PCV) [facility] Start: 02-16-2016 Pneumococcal Vaccine: 65+ Years (2 of 2 - PCV) Pneumococcal Vaccine: 65+ Years (2 of 2 - PCV) [facility] Start: 09-20-2014 Pneumococcal Vaccine: 65+ (2 of 2 - PCV) Pneumococcal Vaccine: 65+ (2 of 2 - PCV) [facility] Start: 10-04-2011 PROSTATE CANCER SCREENING DISCUSSION PROSTATE CANCER SCREENING DISCUSSION [facility] Start: 10-04-2011 Prostate specific antigen measurement Prostate Cancer Screening Discussion [facility] Start: 2006 Screening for malignant neoplasm of lung Lung Cancer Screening [facility] Start: 2006 Shingles (RZV) Vaccine (1 of 2) Shingles (RZV) Vaccine (1 of 2) [facility] Start: 2006 Shingles Vaccine (1 of 2) Shingles Vaccine (1 of 2) [facility] Work Phone: Start: 2006 SHINGRIX VACCINE (1 of 2) SHINGRIX VACCINE (1 of 2) [facility] Start: 2006 Tuberculosis screening COLORECTAL CANCER SCREENING,SEE MODIFIER [facility] Start: 2006 Zoster Vaccines (1 of 2) Zoster Vaccines (1 of 2) [facility] Start: 2001 COLOGUARD (FIT-DNA) COLOGUARD (FIT-DNA) [facility] Start: 2001 Colonoscopy COLONOSCOPY [facility] Start: 2001 COLORECTAL CANCER SCREENING COLORECTAL CANCER SCREENING [facility] Start: [address] COLONOGRAPHY [facility] Start: 2001 DIABETES SCREEN DIABETES SCREEN [facility] Start: 2001 FECAL OCCULT BLOOD FECAL OCCULT BLOOD [facility] Start: 2001 Screening for malignant neoplasm of colon [facility] Start: 2001 SIGMOIDOSCOPY SIGMOIDOSCOPY [facility] Start: 10-04-1991 LIPID SCREEN LIPID SCREEN [facility] Start: 1986 Zoledronic acid therapy ALPHA-1 ANTITRYPSIN DEFICIENCY SCREENING [facility] Start: 10-04-1975 DTaP/Tdap/Td Vaccines (1 - Tdap) DTaP/Tdap/Td Vaccines (1 - Tdap) [facility] Start: 10-04-1975 Hepatitis A (HAV) Vaccine (optional start 19+ years) Hepatitis A (HAV) Vaccine (optional start 19+ years) [facility] Start: 10-04-1975 Pneumococcal Vaccine: 50+ Years (1 of 2 - PCV) Pneumococcal Vaccine: 50+ Years (1 of 2 - PCV) [facility] Start: 10-04-1975 Urine microalbumin profile [facility] Start: 10-04-1975 Urine screening for protein Diabetes: Urine Protein Screening [facility] Start: 1974 ANNUAL PCP TEAM CHRONIC DISEASE VISIT ANNUAL PCP TEAM CHRONIC DISEASE VISIT [facility] Start: 1974 Diabetes: Urine Albumin-Creatinine Ratio for Kidney Health Diabetes: Urine Albumin-Creatinine Ratio for Kidney Health [facility] Start: 1974 Hepatitis B surface antibody level LDL CHOLESTEROL [facility] Start: 1974 HEPATITIS C SCREENING HEPATITIS C SCREENING [facility] Start: 1974 Hepatitis C screening [facility] Start: 1974 HIV SCREENING HIV SCREENING [facility] Start: 1974 SPIROMETRY SPIROMETRY [facility] Start: 1974 Tetanus + diphtheria + acellular pertussis vaccine (product) Tdap Booster [facility] Start: 10-04-1971 HIV screen HIV screen [facility] Work Phone: Start: 1968 Depression Monitoring Depression Monitoring [facility] Start: 1968 Depression Screening Depression Screening [facility] Start: 10-04-1967 DTaP/Tdap/Td vaccine (1 - Tdap) DTaP/Tdap/Td vaccine (1 - Tdap) [facility] Work Phone: Start: 1966 3 comp foot exam completed DIABETIC FOOT EXAM [facility] Start: 1966 Diabetic foot examination [facility] Start: 1966 Diabetic retinal exam Diabetic retinal exam [facility] Work Phone: Start: 1966 Glaucoma screening Diabetes: Retinopathy Screening [facility] Start: 1966 Hepatitis B screening URINE ALBUMIN:CREATININE RATIO [facility] Start: 1966 Preventive dental service Diabetes: Dental Exam [facility] Start: 1962 Pneumococcal 0-64 years Vaccine (1 of 1 - PPSV23) Pneumococcal 0-64 years Vaccine (1 of 1 - PPSV23) [facility] Work Phone: Start: 1962 Pneumococcal vaccination Pneumococcal Vaccine(s) (65+ yrs) (1 of 2 - PCV) [facility] Start: 1962 Pneumococcal Vaccine: 65+ Years (1 - PCV) Pneumococcal Vaccine: 65+ Years (1 - PCV) [facility] Start: 1962 Pneumococcal Vaccine: 65+ Years (1 of 2 - PCV) Pneumococcal Vaccine: 65+ Years (1 of 2 - PCV) [facility] Start: 1962 PNEUMOCOCCAL: 65+ (1 - PCV) PNEUMOCOCCAL: 65+ (1 - PCV) [facility] Start: 1956 Urine screening for protein Microalbumin [facility] Start: 1956 ABDOMINAL AORTIC ANEURYSM SCREENING ABDOMINAL AORTIC ANEURYSM SCREENING [facility] Start: 1956 Abdominal aortic aneurysm screening Abdominal Aortic Aneurysm Screening [facility] Start: 1956 Annual wellness visit Medicare Initial Physical (IPPE) [facility] Start: 1956 Diabetic foot examination Foot Exam [facility] Start: 1956 Hemoglobin A1c measurement Diabetes: Hemoglobin A1C [facility] Start: 1956 Hepatitis B Vaccines (1 of 3 - 3-dose series) Hepatitis B Vaccines (1 of 3 - 3-dose series) [facility] Start: 1956 Pulmonary Function Testing Pulmonary Function Testing [facility] Start: 1956 Screening for malignant neoplasm of colon [facility] End: 06-02-2024 Bacteria identified in Lower respiratory specimen by Aerobe culture Respiratory culture and Stain Microbiology Routine Once (Lab) for 1 Occurrences starting 06/02/2024 until 06/02/2024 [facility] Work Phone: Comment on above: Once (Lab) for 1 Occurrences starting until 06/02/2024 Bacteria identified in Urine by Culture Urine culture Microbiology Routine 12/03/2023 11:23 PM EDT [facility] Work Phone: ECG 12 lead ECG 12 lead CV E CG Routine 04/24/2023 7:14 AM EST [facility] Work Phone: ECG 12 lead - CLINIC PERFORMED E CG 12 lead - CLINIC PERFORMED CV ECG Routine Chest pain, unspecified type 03/08/2024 9:24 AM EST [employer] Work Phone: EKG 12 Lead [employer] Work Phone: End: 05-30-2024 Legionella and Streptococcus Urine Antigen [employer] Work Phone: Comment on above: Once (Lab) for 1 Occurrences starting until 05/30/2024 Tissue exam Tissue exam Path ology and Cytology Timed Anemia, unspecified Mixed irritable bowel syndrome Encounter for screening for malignant neoplasm of colon Release Upon Ordering for 1 Occurrences starting 07/18/2022 [employer] Work Phone: Comment on above: Release Upon Ordering for 1 Occurrences starting 07/18/2022 Tissue exam [employer] Work Phone: Comment on above: Release Upon Ordering for 1 Occurrences starting 07/16/2024, 1 completed End: 05-30-2024 Urine Hold Cup Urine Hold Cup Lab Timed Once for 1 Occurrences starting 05/30/2024 until 05/30/2024 [employer] Comment on above: Once for 1 Occurrences starting 05/30/19 until 05/30/2024 End: 05-22-2024 US Retroperitoneum [employer] Work Phone: Comment on above: Once for 1 Occurrences starting 05/22/19 until 05/22/2024 Immunizations Immunization Date Immunization Notes Care Provider Fa [facility] 11-29-2023 tetanus toxoid, reduced diphtheria toxoid, and acellular pertussis vaccine, adsorbed [facility] 1 [facility] 07-13-2023 Hemoglobin A1C Rony Macdonald i, DMD, MD Work Phone: [facility] 03-01-2022 Pfizer Bivalent (12+ YRS) SARS-COV-2 (COVID-19) vaccine, mRNA, spike protein, LNP, pres. free, 30 mcg/0.3mL dose, jose maria-sucrose (SSW=239) Rony Arriaza DMD, MD Work Phone: [facility] 03-01-2022 Pfizer Monovalent (1 2+ yrs) SARS-COV-2 (COVID-19) vaccine, mRNA, spike protein, LNP, pres. free, 30 mcg/0.3mL dose (SAU=227) Rony Arriaza DMD, MD Work Phone: [facility] 02-04-2022 influenza, injectabl e, quadrivalent, contains preservative Rony Arriaza DMD, MD Work Phone: [facility] 02-04-2022 influenza virus vaccine, unspecified formulation David Chen MD Work Phone: [facility] 09-01-2021 Pfizer Monovalent (1 2+ yrs) SARS-COV-2 (COVID-19) vaccine, mRNA, spike protein, LNP, pres. free, 30 mcg/0.3mL dose (ZVO=506) Rony Arriaza DMD, MD Work Phone: [facility] 09-01-2021 Pfizer Monovalent (1 2+ yrs) SARS-COV-2 (COVID-19) vaccine, mRNA, spike protein, LNP, pres. free, 30 mcg/0.3mL dose, jose maria-sucrose (WVZ=221) Rony Arriaza DMD, MD Work Phone: [facility] 02-02-2021 [facility] Monovalent (12+ yrs) COVID-19 vaccine, mRNA, spike protein, LNP, PF, 100 mcg/0.5 mL (MYQ=610) Rony Arriaza DMD, MD Work Phone: [facility] 02-02-2021 Pfizer Monovalent (1 2+ yrs) SARS-COV-2 (COVID-19) vaccine, mRNA, spike protein, LNP, pres. free, 30 mcg/0.3mL dose (CVK=258) Rony Arriaza DMD, MD Work Phone: [facility] 01-26-2021 influenza, injectabl e, quadrivalent, contains preservative Rony Arriaza DMD, MD Work Phone: [facility] 01-04-2017 influenza, high dose seasonal, preservative-free James Begum MD Work Phone: [facility] Work Phone: 01-04-2017 influenza virus vaccine, unspecified formulation [facility]ress [facility] 01-08-2015 influenza virus vaccine, unspecified formulation James Begum MD Work Phone: [facility] 01-08-2014 influenza, seasonal, injectable Rony Arriaza DMD, MD Work Phone: [facility] 09-20-2013 pneumococcal Conjugate, unspecified formulation James Begum MD Work Phone: [facility] 01-27-2010 influenza virus vaccine, whole virus Rony Arriaza DMD, MD Work Phone: [facility] Payers Date Payer Category Payer Self-pay 2018 Medicaid 2018 Medicaid MEDICAID [facility] DEPT OF JOB xxxxxxxxxxxx 2018-Present [phone] [address] [place] [address] xxxxxxxxxxxx [id number] 2018 Medicaid [id number] 1955 Unknown [id number] 2.16.840.1.489926.3.579.2. 1956 Unknown [id number] 2.16840.1.246262.3.579.2 1956 Unknown [id number] 2.16.840.1.485612.3.579.2. 1956 Unknown [id number] 2.16.840.1.395358.3.579.2. 1956 Unknown [id number] 2.16.840.1.767516.3.579.2. 1956 Unknown [id number] 2.16.840.1.598884.3.579.2. 1956 Unknown [id number] 2.16.840.1.095813.3.579.2.668 1956 Unknown [id number] 2.16.840.1.062546.3.579.2.668 1956 Unknown [id number] 2.16.840.1.921415.3.579.2.732 1956 Unknown [id number] 2.16.840.1.240455.3.579.2.732 Unknown Unknown [id number] 2.16.840.1.916824.3.579.2.462 Unknown [id number] 2.16.840.1.454371.3.579.2.462 Unknown [id number] 2.16.840.1.657420.3.579.2.462 Unknown [id number] 2.16.840.1.655065.3.579.2.462 Unknown [id number] 2.840.1.472644.3.579.2.462 Unknown [id number] 2.16.840.1.891275.3.579.2.462 Unknown [id number] 2.16840.1.751560.3.579.2.462 Unknown [id number] 2.16.840.1.677599.3.579.2.462 Unknown [id number] 2.840.1.054331.3.579.2.462 Unknown [id number] 2.840.1.255711.3.579.2.462 Unknown [id number] 2.840.1.596326.3.579.2.462 Unknown [id number] 2.840.1.722377.3.579.2.462 Social History Date Type Detail Facility [facility] Start: 1955 Sex Assigned At Not on file [facility] [employer] Work Phone: Start: 04-28-1973 End: 11-29-2023 Tobacco smoking status NHIS Current every day smoker [facility] Start: 04-28-1973 History of tobacco use Cigarette Smo ker [facility] Start: 04-12-2019 End: 11-30-2023 Cigarettes smoked current (pack per day) - Reported [facility] Start: 04-12-2019 End: 07-16-2024 Alcohol intake Current non-drinker of alcohol (finding) [facility] Work Phone: Start: 01-26-2017 Alcohol Comment last drinking 1984 S [facility] Work Phone: Start: 12-26-2016 End: 11-29-2023 Tobacco use and exposure Smokeless tobacco non-user [facility] Start: 04-03-2022 End: 12-13-2022 Exposure to SARS-CoV-2 (event) Not sure [facility] Start: 1955 Sex Assigned At Male [facility] Start: 09-02-2022 End: 11-05-2024 Tobacco use panel [facility] Within the last year , have you been afraid of your partner or ex-partner? No [facility] National Score (1-100), lower number is lower risk 79 [facility] Tobacco smoking stat us [facility] Tobacco smoking consumption unknown [facility] How often to you hav e a drink containing alcohol? Never [facility] Start: 11-15-2021 End: 07-23-2024 Sex Male (finding) [facility] Start: 11-05-2024 smoking/tobacco cessation, patient education and counseling Smoking cessation education (procedure) [employer] Work Phone: Medical Equipment Procedure Code Equipment Code Equipment Origin al Text Equipment Identifier Dates USE DIRECTED FOR INSULIN 4 TIMES DAILY [id number] Start: 01-23-2017 Clinical Notes 04-12-2019 to 07-17-2024 Lashay Murcia PTA - 07/17/2024 2:24 PM PATRICIA Tolbert CNP - 07/17/2024 11:38 AM Lawrence Collins - 07/17/2024 9:47 AM Keyla Conklin OT - 07/16/2024 2:17 PM EDTDisevangelista Instr - CRUZ Note Date & Type Note Facility 07-17-2024 History of Present illness Narrative Images from the original note were not included. PHYSICAL THERAPY [facility] Treatment Note Name/MRN: James Reyes ([id number]) Date of : 1955 Age: 68 y.o. Room/Bed: B4-389/O7-404 B Visit #: 1 out of 7 visits Discharge Recommendation: [facility] Facility Other: TBD at next level of [...] 11 Minutes (1 active function) Lashay Murcia WARPER FIXER Cosigned by Arabella Shen, PT at 07/17/2024 3:28 PM EDT Images from the original note were not included. [facility], Pulmonary Medicine [address] [place] [id number] Patient - James Reyes, Age - 68 y.o. - 1955 Room Number - B4-459/B4-459 B Consulting - Delisa Courtney MD Primary Care Physician - [id number] Date of Admission - 07/15/2024 11:38 AM [...] non compliant per Liliana, his nurse at [facility]. 50 pack year smoking history. [...] Nightly mometasone-formoterol, 2 puff, Inhalation, BID pancrelipase (Abg-Safm-Ykfo), 2 capsule, Oral, TID WC pantoprazole, 40 [...] current use of insulin (HCC) 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 Uncontrolled type 2 diabetes mellitus with complication, with long-term current use of insulin IBS (irritable bowel syndrome) Pseudomonas aeruginosa infection Angina at rest ([facility]) Sternal wound dehiscence intermediate (current) use of antibiotics Enlarged prostate with lower urinary tract symptoms (LUTS) Hypertensive heart disease COPD (chronic obstructive pulmonary disease) (HCC) Arthritis of foot, degenerative Hiatal hernia Colitis Chest pain Anemia Colitis, collagenous Gastroesophageal reflux disease without esophagitis Closed head injury, initial encounter Acute hypercapnic respiratory failure (HCC) Hematemesis Assessment Chronic hypoxic and hypercapnic respiratory failure Probable underlying COPD, not in acute exacerbation Suspected MINERVA Coffee-ground emesis-EGD with erythematous gastric mucosa without active bleeding Recommendations I spoke with patient's nurse Liliana at [facility] today. Patient supposed to be on 4 liters NC at nursing facility but is non compliant. He is currently on 6 liters NC this morning. I spoke with Isael RN on 4 south. Plan to wean FiO2 back to baseline 4 liters NC. Keep SpO2 92% Continue use of AutoBiPAP at HS and with daytime naps. Will place order on CRZU so patient can use PAP when he [...] be monitored and followed by the diet nuclear fuel enrichment technician. Images from the original note were not included. OCCUPATIONAL THERAPY [facility] Initial Evaluation Name/MRN: James Reyes ([id number]) Evaluation Date: 07/16/2024 Date of : 1955 Admission Date: 07/15/2024 11:38 AM Age: 68 y.o. Room/Bed: [facility] B Discharge Recommendation: [facility] Facility Assessment IMPRESSION: Prior to admission, pt [...] Acute kidney injury (HCC) 09/11/2015 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 08/08/2017 COPD (chronic obstructive pulmonary disease) [...] [facility] OR CORONARY ARTERY BYPASS GRAFT ESOPHAGOGASTRODUODENOSCOPY N/A 07/16/2024 Dr Blackwood FOOT SURGERY Left 2014 HEMORRHOID SURGERY 1997 [...] 08/08/2017 Hematemesis 07/15/2024 Acute hypercapnic respiratory failure ([facility]) 05/30/2024 Closed head injury, initial encounter 11/29/2023 Uncontrolled type 2 diabetes mellitus with hyperglycemia, with long-term current use of insulin ([facility]) 10/30/2017 Uncontrolled type 2 diabetes mellitus with complication, with long-term current use of insulin 10/25/2017 Pseudomonas aeruginosa infection 10/20/2017 Sternal wound dehiscence 10/20/2017 manager long term care (current) use of antibiotics 10/20/2017 Wound disruption, post-op, skin, initial encounter 10/16/2017 Dyslipidemia 08/08/2017 Knee osteoarthritis 08/08/2017 Insulin dependent diabetes mellitus 08/08/2017 MINERVA (obstructive sleep apnea) 08/08/2017 Tobacco abuse 08/08/2017 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 08/08/2017 Angina at rest ([facility]) 08/08/2017 Hypertensive heart disease 08/08/2017 COPD (chronic obstructive pulmonary disease) ([facility]) 08/08/2017 Chest pain 08/06/2017 Colitis, collagenous 06/15/2017 Anemia 05/23/2017 Gastroesophageal reflux disease without esophagitis 05/23/2017 Colitis 05/21/2017 Esophagitis, reflux 04/26/2017 Type 2 diabetes, uncontrolled, with neuropathy 04/26/2017 Hiatal hernia 02/21/2017 Arthritis of foot, degenerative 01/09/2017 Enlarged prostate with lower urinary tract symptoms (LUTS) 09/07/2016 Morbid obesity ([facility]) 08/12/2016 Shoulder pain, left 10/23/2014 Knee pain, [...] of Care supervision is transferred to a [facility] Occupational Therapist. Goals and/or treatment plan was established in collaboration with patient/family/other representatives. [facility] Hospitalist Progress note [phone]: Please page me ([phone]) for patient care issues. [phone]: Please page [facility] Hospitalist for any issues. Subjective: Admit Date: 07/15/2024 PCP: Chelle Troncoso MD Room#: B4-959/B4-229 B James Reyes is a 68 y.o. male who presents with Hematemesis James is a 68 y.o. male with past medical history below who presents with chief complaint dark vomit and coffee-ground emesis 2 times prior to admission to the ER, in the ER he did not have any episode, patient is from [facility] [place] , on review of records he is [...] hypercapnic, hypoxic respiratory failure, was [facility] on 4 L of oxygen and prednisone [...] 8 mg/hr, Last Rate: 8 mg/hr (07/15/24 6458) sodium chloride, 100 mL/hr, Last Rate: 100 [...] Nightly mometasone-formoterol, 2 puff, Inhalation, BID pancrelipase (Stf-Yvjj-Nxtn), 2 capsule, Oral, TID WC pregabalin, 150 [...] Facility - Pending the following -clinical improvement, partner management consultant recommendations Total time spent (which include [...] MD Division of Hospitalist Medicine Inpatient Medical Services/[facility] Images from the original note were not included. PHYSICAL THERAPY [facility] Initial Evaluation Name/MRN: James Reyes ([id number]) Evaluation Date: 07/16/2024 Date of : 1955 Admission Date: 07/15/2024 11:38 AM Age: 68 y.o. 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 08/08/2017 COPD (chronic obstructive pulmonary disease) ([facility]) Developmental disorder Diabetes mellitus ([facility]) Esophageal reflux Gastritis see EGD on 03/29/2016 [...] 08/08/2017 Hematemesis 07/15/2024 Acute hypercapnic respiratory failure ([facility]) 05/30/2024 Closed head injury, initial encounter 11/29/2023 Uncontrolled type 2 diabetes mellitus with hyperglycemia, with long-term current use of insulin ([facility]) 10/30/2017 Uncontrolled type 2 diabetes mellitus with complication, with long-term current use of insulin 10/25/2017 Pseudomonas aeruginosa infection 10/20/2017 Sternal wound dehiscence 10/20/2017 intermediate (current) use of antibiotics 10/20/2017 Wound disruption, post-op, skin, initial encounter 10/16/2017 Dyslipidemia 08/08/2017 Knee osteoarthritis 08/08/2017 Insulin dependent diabetes mellitus 08/08/2017 MINERVA (obstructive sleep apnea) 08/08/2017 Tobacco abuse 08/08/2017 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 08/08/2017 Angina at rest ([facility]) 08/08/2017 Hypertensive heart disease 08/08/2017 COPD (chronic obstructive pulmonary disease) ([facility]) 08/08/2017 Chest pain 08/06/2017 Colitis, collagenous 06/15/2017 Anemia 05/23/2017 Gastroesophageal reflux disease without esophagitis 05/23/2017 Colitis 05/21/2017 Esophagitis, reflux 04/26/2017 Type 2 diabetes, uncontrolled, with neuropathy 04/26/2017 Hiatal hernia 02/21/2017 Arthritis of foot, degenerative 01/09/2017 Enlarged prostate with lower urinary tract symptoms (LUTS) 09/07/2016 Morbid obesity ([facility]) 08/12/2016 Shoulder pain, left 10/23/2014 Knee pain, [...] Raw Score (No Stairs) : 10 JH-HLM -HLM Score: Sat at edge of bed Plan [...] of Care supervision is transferred to a [facility] Physical Therapist. Goals and/or treatment plan was established in collaboration with patient/family/other representatives. Patient declined smoking cessation counseling. Accepting of handout with contact information for future reference. documented in this encounter [facility] 07-17-2024 Plan of care note Problem: [...] maintained or improved Outcome: Adequate for Discharge [facility] 07-17-2024 Miscellaneous Notes Problem: Knowledge Deficit [...] For additional Questions please call Endoscopy at [phone]. Thank You! Endoscopy [facility] Patient Name: James Reyes Procedure Date: 07/16/2024 10:45 AM Gender: Male Date of : 1955 Age: 68 Admit Type: Inpatient Note Status: Finalized Endoscopist: Jaret Blackwood DO, [id number] Procedure: Upper GI endoscopy Indications: Coffee-ground emesis [...] immediate complications. Procedure Code(s): --- Professional --- 65507, Esophagogastroduodenoscopy, flexible, transoral; with biopsy, single or multiple --- Technical --- 57184, Esophagogastroduodenoscopy, flexible, transoral; with biopsy, single or multiple Diagnosis Code(s): --- Professional --- K44.9, Diaphragmatic hernia without obstruction or gangrene K31.89, Other diseases of stomach and duodenum K92.0, Hematemesis --- Technical --- K44.9, Diaphragmatic hernia without obstruction or gangrene K31.89, Other diseases of stomach and duodenum K92.0, Hematemesis CPT copyright 2021 [employer]. All rights reserved. The codes documented in this report are preliminary and upon synthetic filament extruder review may be revised to meet current [...] is Maintained or Improved Outcome: Progressing Per [facility], patient is residential and bedhold at [facility] and can return when medically stable. . Return referral placed in [facility] to [facility]. . documented in this encounter [facility] 07-17-2024 Note [facility] 07-17-2024 Hospital course Narrative Images from the original note were not included. [facility] Hospitalist Discharge Summary James Reyes : 1955 [...] not have any episode, patient is from [facility] [place] , on review of records he is [...] hypercapnic, hypoxic respiratory failure, was discharged [facility] on 4 L of oxygen and prednisone [...] Commonly known as: Bentyl ergocalciferol 1.25 MG (23835 UT) capsule Commonly known as: Vitamin D-2 [...] nystatin cream Commonly known as: Mycostatin pancrelipase (Mvf-Gmty-Bsnd) [id number] units capsule Commonly known as: Creon pregabalin [...] Your Medications These medications were sent to [facility] - [place], [place] - [address], [place] [address] pantoprazole 40 MG EC tablet Recommended Follow-up: Viki Ball APRN - [facility] [address] [place] [address], [facility] [id number] Go on 07/31/2024 Pulmonary hospital follow up at 1:40 PM Chelle Troncoso MD [address] [facility] [address] Follow up Hospital follow up Complexity of Follow up: [] Moderate Complexity: follow up within 7-14 calendar days (35043) [x] Severe Complexity: follow up within 7 calendar days (25404) Follow up Testing, Pending results or Referrals [...] MD Division of Hospitalist Medicine Inpatient Medical Services/[facility] 07/17/2024, 12:55 PM documented in this encounter [facility] 07-17-2024 Plan of care note Problem: Knowledge Deficit Goal: Patient/family/caregiver demonstrates understanding of disease process, treatment plan, medications, and discharge instructions Outcome: Progressing Problem: Potential for Compromised Skin Integrity Goal: Skin Integrity is Maintained or Improved Outcome: Progressing Goal: Nutritional status is improving Outcome: Progressing [facility] 07-17-2024 Nurse Note Wound Care consulted [...] ointment applied. Prevention Measures in place, including: Browder sheet (obtained) with pillows/wedges, Heels elevated off bed on pillows, Zinc/Moisture Barrier ointment (obtained and applied), Waffle chair cushion (obtain for pt once getting out of bed to chair). Skin Care precaution order set in place. Dietitian nuclear fuel enrichment technician involved. PT/OT consult in place. D/W nursing staff. Will continue to follow pt. Please secure chat for any questions or concerns. Kaycee Ricardo RN [facility] 07-17-2024 Nurse Note Wound Care consulted [...] ointment applied. Prevention Measures in place, including: Browder sheet (obtained) with pillows/wedges, Heels elevated off bed on pillows, Zinc/Moisture Barrier ointment (obtained and applied), Waffle chair cushion (obtain for pt once getting out of bed to chair). Skin Care precaution order set in place. Dietitian nuclear fuel enrichment technician involved. PT/OT consult in place. D/W nursing staff. Will continue to follow pt. Please secure chat for any questions or concerns. Kaycee Ricardo RN documented in this encounter [facility] 07-16-2024 Consult note Associated Order (s): [...] coffee-ground emesis. This reportedly happened twice at [facility] prior to arrival to the ED. [...] Acute kidney injury (HCC) 09/11/2015 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 08/08/2017 COPD (chronic obstructive pulmonary disease) [...] 07/18/2022 Performed by David Chen MD at [facility] OR CORONARY ARTERY BYPASS GRAFT FOOT [...] attack Mother 61.00 Heart disease Father Other ([id number]) Brother accident Coronary artery disease Father Diabetes [...] Nightly mometasone-formoterol, 2 puff, Inhalation, BID pancrelipase (Ylh-Rfrt-Teav), 2 capsule, Oral, TID WC pregabalin, 150 mg, Oral, BID tamsulosin, 0.4 mg, Oral, Daily Continuous Infusions:pantoprazole (ProtoNix) 80 mg in sodium chloride 0.9 % 100 mL (0.8 mg/mL) infusion, 8 mg/hr, Last Rate: 8 mg/hr (07/15/245) sodium chloride, 100 mL/hr, Last Rate: 100 mL/hr (07/15/24 2355) Data: [facility] within last 24 hours- [...] ABGs: Recent Labs 07/15/24 1711 PHART 7.313* HAQ7YXO 46.3 PO2ART 70.1* ZEA2BEM 22.9 [id number] Nasal Cannula (LPM) Lactic Acid: No results [...] Narrative Patient Name: JAMES REYES : 1955 [facility]#: [id number] Exam Date/Time: 07/15/2024 12:10 Procedure: XR CHEST [...] normal. Behavior: Behavior normal. Behavior is cooperative. Ratify Phone: 07-16-2024 Consult note Associated Order (s): [...] coffee-ground emesis. This reportedly happened twice at [facility] prior to arrival to the ED. [...] Acute kidney injury (HCC) 09/11/2015 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 08/08/2017 COPD (chronic obstructive pulmonary disease) [...] 07/18/2022 Performed by David Chen MD at [facility] OR CORONARY ARTERY BYPASS GRAFT FOOT [...] attack Mother 61.00 Heart disease Father Other ([id number]) Brother accident Coronary artery disease Father Diabetes [...] Nightly mometasone-formoterol, 2 puff, Inhalation, BID pancrelipase (Hir-Bxxo-Jzqs), 2 capsule, Oral, TID WC pregabalin, 150 [...] interval not displayed. ABGs: Recent Labs 07/15/24 171 PHART 7.313* EBN2UQD 46.3 PO2ART 70.1* XSM4OBY 22.9 [id number] Nasal Cannula (LPM) Lactic Acid: No results [...] coffee-ground emesis x 2. Patient transferred from [facility] with 2 episodes of coffee-ground emesis. [...] Acute kidney injury (HCC) 09/11/2015 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 08/08/2017 COPD (chronic obstructive pulmonary disease) [...] 07/18/2022 Performed by David Chen MD at [facility] OR CORONARY ARTERY BYPASS GRAFT FOOT [...] attack Mother 61.00 Heart disease Father Other ([id number]) Brother accident Coronary artery disease Father Diabetes [...] No dose, route, or frequency recorded. pancrelipase, Cth-Oqhy-Xkhj, (Creon) 52690-85431 units capsule 3 times daily with meals [...] TID, Bethany Sandhu MD, 1,000 mg at 07/16/24903 albuterol (2.5 MG/3ML) 0.083% nebulizer solution 2.5 [...] Daily, Bethany Sandhu MD, 80 mg at 07/16/24902 carvedilol (Coreg) tablet 3.125 mg, 3.125 mg, Oral, BID WC, Bethany Sandhu MD, 3.125 mg at 07/16/24902 dextrose 5 % infusion, 100 mL/hr, IntraVENous, PRN, Bethany Sandhu MD dextrose 50 % solution 12.5 g, 12.5 g, IntraVENous, PRN, Bethany Sandhu MD Diclofenac Sodium (Voltaren) 1 % gel 2 g, 2 g, Topical, BID PRN, Jorden Null MD ergocalciferol (Vitamin D2) capsule 1,250 mcg, 1,250 mcg, Oral, Weekly, Bethany Sandhu MD, 1,250 mcg at 07/16/24902 ezetimibe (Zetia) tablet 10 mg, 10 mg, [...] Bethany Sandhu MD, 2 Units at 07/15/24 2133 mometasone-formoterol (Dulera 100) 100-5 MCG/ACT inhaler 2 puff, 2 puff, Inhalation, BID, Bethany Sandhu MD, 2 puff at 07/16/24 0903 nitroglycerin (Nitrostat) SL tablet 0.4 mg, 0.4 mg, SubLINGual, q5 min PRN, Bethany Sandhu MD ondansetron ODT (Zofran-ODT) disintegrating tablet 4 mg, 4 mg, Oral, q8h PRN OR ondansetron (Zofran) injection 4 mg, 4 mg, IntraVENous, q6h PRN, Bethany Sandhu MD pancrelipase (Qqj-Sgyj-Zswq) (Creon) 6000-46731 units per capsule 2 capsule, 2 capsule, [...] 07/16/2024 9:12 AM documented in this encounter [facility] 07-16-2024 Evaluation + Plan note POST ENDOSCOPY PROCEDURE TRANSFER REPORT Procedure completed: EGD Findings:See Dr Blackwood' Report Specimens obtained: Yes Medications administered: See Anesthesia Record Additional Info: No adverse events or complications. For additional Questions please call Endoscopy at [phone]. Thank You! [facility] 07[facility]16-2024 [facility] James [facility]yes Procedure Date: 07/16/2024 10:45 AM Gender: Male Date of : 1955 Age: 68 Admit Type: Inpatient Note Status: Finalized Endoscopist: Jaret Blackwood DO, [id number] Procedure: Upper GI endoscopy Indications: Coffee-ground emesis [...] immediate complications. Procedure Code(s): --- Professional --- 96079, Esophagogastroduodenoscopy, flexible, transoral; with biopsy, single or multiple --- Technical --- 99836, Esophagogastroduodenoscopy, flexible, transoral; with biopsy, single or multiple Diagnosis Code(s): --- Professional --- K44.9, Diaphragmatic hernia without obstruction or gangrene K31.89, Other diseases of stomach and duodenum K92.0, Hematemesis --- Technical --- K44.9, Diaphragmatic hernia without obstruction or gangrene K31.89, Other diseases of stomach and duodenum K92.0, Hematemesis CPT copyright 2021 [employer]. All rights reserved. The codes documented in this report are preliminary and upon synthetic filament extruder review may be revised to meet current compliance requirements. Attending Participation: I personally performed the entire procedure. Jaret Blackwood DO 07/16/2024 11:48:32 AM This report has been signed electronically. Number of Addenda: 0 Note Initiated On: 07/16/2024 10:45 AM [facility] 07-16-2024 Plan of care note Problem: Knowledge Deficit Goal: Patient/family/caregiver demonstrates understanding of disease process, treatment plan, medications, and discharge instructions Outcome: Progressing Problem: Potential for Compromised Skin Integrity Goal: Skin Integrity is Maintained or Improved Outcome: Progressing [facility] 07-16-2024 Note Patient declined smo janey cessation counseling. Accepting of handout with contact information for future reference. [facility] 07-16-2024 Consult note Associated Order (s): [...] coffee-ground emesis x 2. Patient transferred from [facility] with 2 episodes of coffee-ground emesis. [...] Acute kidney injury (HCC) 09/11/2015 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 08/08/2017 COPD (chronic obstructive pulmonary disease) [...] attack Mother 61.00 Heart disease Father Other ([id number]) Brother accident Coronary artery disease Father Diabetes [...] No dose, route, or frequency recorded. pancrelipase, Haj-Licz-Zqnj, (Creon) 52851-60368 units capsule 3 times daily with meals [...] Daily, Bethany Sandhu MD, 80 mg at 07/16/24902 carvedilol (Coreg) tablet 3.125 mg, 3.125 mg, [...] Nightly, Bethany Sandhu MD, 10 mg at 07/15/242130 finasteride (Proscar) tablet 5 mg, 5 mg, [...] Bethany Sandhu MD, 2 Units at 07/15/24 2133 mometasone-formoterol (Dulera 100) 100-5 MCG/ACT inhaler 2 puff, 2 puff, Inhalation, BID, Bethany Sandhu MD, 2 puff at 07/16/24 0903 nitroglycerin (Nitrostat) SL tablet 0.4 mg, 0.4 mg, SubLINGual, q5 min PRN, Bethany Sandhu MD ondansetron ODT (Zofran-ODT) disintegrating tablet 4 mg, 4 mg, Oral, q8h PRN OR ondansetron (Zofran) injection 4 mg, 4 mg, IntraVENous, q6h PRN, Bethany Sandhu MD pancrelipase (Nwq-Lcoo-Iabr) (Creon) 6000-77625 units per capsule 2 capsule, 2 capsule, [...] by Jaret Blackwood DO 07/16/2024 9:12 AM [employer] Work Phone: 07-15-2024 Emergency department Note Patient taken to the floor via medic. [employer] 07-15-2024 Emergency department Note Patient taken to the floor via medic. Emergency Department Encounter Pt Name: James Reyes Birthdate 1955 Date of evaluation: 07/15/2024 Provider: Amanuel Parisi MD CHIEF COMPLAINT Chief Complaint Patient presents with Vomiting Blood HISTORY OF PRESENT ILLNESS HPI aJmes Reyes is a 68 y.o. male brought [...] much vision he is on. According to [facility] paperwork, he is on baby aspirin and no blood thinners. PMH includes esophageal reflux and gastritis and diabetes Nursing Notes were reviewed. Past Medical History: Diagnosis Date Acute kidney injury (HCC) 09/11/2015 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 08/08/2017 COPD (chronic obstructive pulmonary disease) [...] pel - do not believe this will knife changer. ED course: Diagnoses as of 07/15/24 1430 Hematemesis ED medications managed: Medications pantoprazole (ProtoNix) 40 mg in sodium chloride (PF) 0.9 % 10 mL injection (40 mg IntraVENous Given 07/15/24 1212) Chronic conditions and social determinants of health affecting care: COPD DISPOSITION/PLAN Admit 07/15/2024 01:32:16 PM Amanuel Parisi MD Emergency Medicine Amanuel Parisi MD 07/16/24 0816 Patient arrives from [facility] via ambulance due to coffee ground emesis twice. documented in this encounter [facility] 07-15-2024 Note Formatting of this n ote might be different from the original. Per careport, patient is residential and bedhold at [facility] and can return when medically stable. . [facility] 07-15-2024 Note Formatting of this n ote might be different from the original. Per careport, patient is residential and bedhold at [facility] and can return when medically stable. . [facility] 07-15-2024 Hospital Discharge instructions Isael Ash [...] 07/18/2022 Performed by David Chen MD at [facility] OR CORONARY ARTERY BYPASS GRAFT FOOT [...] apnea) Tobacco abuse Esophagitis, reflux Morbid obesity ([facility]) Type 2 diabetes, uncontrolled, with neuropathy Wound disruption, post-op, skin, initial encounter Uncontrolled type 2 diabetes mellitus with hyperglycemia, with long-term current use of insulin ([facility]) 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 Uncontrolled type 2 diabetes mellitus with complication, with long-term current use of insulin Pseudomonas aeruginosa infection Angina at rest ([facility]) Sternal wound dehiscence intermediate (current) use of antibiotics Enlarged prostate with lower urinary tract symptoms (LUTS) Hypertensive heart disease Overview Signed 01/27/2022 12:43 PM by Interface, Incoming Problems- Carepath Conversion [facility] 55% EF SHOWS HYPERTENSIVE HEART DISEASE COPD (chronic obstructive pulmonary disease) ([facility]) Overview Signed 01/27/2022 12:43 PM by Interface, Incoming Problems- [facility]path Conversion PATIENT IS ON 2 LITER OF OXYGEN AND NOW IS SEEING DR ESTRADA WAS TESTED [facility] AND QUALIFED HOME OXYGEN 07/17/2015 Arthritis of [...] Total assistance Toileting Minimal assistance Feeding Independent Sports Team Manager Independent Med Delivery no Wound Care Documentation [...] Status Date: Discharging to Facility/ Agency Name: [facility] Address:[address] [place] [address] Dialysis Facility (if applicable) Name: Address: Dialysis Schedule: Phone: Fax: [place] Measurer/Perishable Freight Inspector signature: ICIAN SECTION Name: James Reyes Prognosis: [...] to a nursing facility directly from an [facility] or a unit of a hospital that is not operated by or licensed by [facility] under section 5119.14 or 5160-3-15.1 5 The individual requires the level of services provided by a nursing facility for the condition for which he or she was treated in the hospital and, Physician Certification: I certify the above information and transfer of James Reyes is necessary for the continuing treatment of the diagnosis listed and that he requires longterm facility for greater than 30 days. Update Admission H&P: No change in H&P PHYSICIAN SIGNATURE: documented in this encounter [facility] 07-15-2024 Note Formatting of this n ote might be different from the original. [facility]. . [facility] 07-15-2024 Note Formatting of this n ote might be different from the original. Return referral placed in careport to [facility]. . [facility] 07-15-2024 Note Return referral plac ed in [facility] to [facility]. . [facility] 07-15-2024 History and physical note Attending [...] not have any episode, patient is from [facility] , on review of records he is [...] Acute kidney injury (HCC) 09/11/2015 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 08/08/2017 COPD (chronic obstructive pulmonary disease) [...] attack Mother 61.00 Heart disease Father Other ([id number]) Brother accident Coronary artery disease Father Diabetes [...] mouth daily. ergocalciferol (Vitamin D-2) 1.25 MG (33802 UT) capsule Take 1.25 mg by mouth [...] for chest pain. nystatin (Mycostatin) cream pancrelipase, Bqq-Lmwu-Dnab, (Creon) 57874-59326 units capsule Take by mouth 3 times [...] Acute kidney injury (HCC) 09/11/2015 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 08/08/2017 COPD (chronic obstructive pulmonary disease) [...] studies Baseline ABG,, nocturnal pulse ox called [facility] and awaiting callback. Informed RN Possible sleep [...] Contact Information Primary Emergency Contact: Sreekanth Reyes [place] Relation: Sibling [employer] James Reyes : 1955 Primary Care Physician: Chelle Troncoso MD The patient and/or family/surrogate voluntarily agreed to participate in ACP services. Patient s cognitive capacity: Code Status: [*_] [FULL CODE - Continue all advanced life support: CPR,intubation,invasive procedures] [_] [DNR-CCA - DO NOT do CPR, intubation] [_] [DNR-MARINE ENGINE MECHANIC - Comfort care only] [_] DNR form [...] Bethany Sandhu MD Division of Hospitalist Medicine [facility] [employer] Work Phone: 07-15-2024 Note [employer] [facility] 07-15-2024 History and physical note Attending [...] not have any episode, patient is from [facility] [place] , on review of records he is [...] Acute kidney injury (HCC) 09/11/2015 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 08/08/2017 COPD (chronic obstructive pulmonary disease) [...] 07/18/2022 Performed by David Chen MD at [facility] OR CORONARY ARTERY BYPASS GRAFT FOOT [...] attack Mother 61.00 Heart disease Father Other ([id number]) Brother accident Coronary artery disease Father Diabetes [...] mouth daily. ergocalciferol (Vitamin D-2) 1.25 MG (04221 UT) capsule Take 1.25 mg by mouth [...] for chest pain. nystatin (Mycostatin) cream pancrelipase, Png-Gxjv-Tahm, (Creon) 94564-94725 units capsule Take by mouth 3 times [...] Acute kidney injury (HCC) 09/11/2015 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 08/08/2017 COPD (chronic obstructive pulmonary disease) [...] studies Baseline ABG,, nocturnal pulse ox called [facility] and awaiting callback. Informed RN Possible sleep [...] - DO NOT do CPR, intubation] [_] [DNR-MARINE ENGINE MECHANIC - Comfort care only] [_] DNR form [...] Bethany Sandhu MD Division of Hospitalist Medicine [facility] documented in this encounter [facility] 07-15-2024 Emergency department Triage note Patient arrives from [facility] via ambulance due to coffee ground emesis twice. [facility] 07-15-2024 Physician Emergency department Note Emergency [...] much vision he is on. According to [facility] paperwork, he is on baby aspirin and no blood thinners. PMH includes esophageal reflux and gastritis and diabetes Nursing Notes were reviewed. Past Medical History: Diagnosis Date Acute kidney injury (HCC) 09/11/2015 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 08/08/2017 COPD (chronic obstructive pulmonary disease) ([facility]) Developmental disorder Diabetes mellitus ([facility]) Esophageal reflux Gastritis see EGD on 03/29/2016 [...] pel - do not believe this will knife changer. ED course: Diagnoses as of 07/15/24 1430 Hematemesis ED medications managed: Medications pantoprazole (ProtoNix) 40 mg in sodium chloride (PF) 0.9 % 10 mL injection (40 mg IntraVENous Given 07/15/24 1212) Chronic conditions and social determinants of health affecting care: COPD DISPOSITION/PLAN Admit 07/15/2024 01:32:16 PM Amanuel Parisi MD Emergency Medicine Amanuel Parisi MD 07/16/24 0816 [facility] 06-27-2024 History of Present illness Narrative UROJET 2% LIDOCAINE [facility] [id number] LOT [id number] EXP 05/16/2026 ADMINISTERED BY Nettie Carreon LPN 6 mL in to Urethra PATIENT TOLERATED WELL Images from the original note were not included. OFFICE CYSTOSCOPY REPORT PATIENT NAME: James Reyse DATE OF : 1955 TODAY'S DATE: 06/27/2024 [...] 06/27/24 11:55 AM documented in this encounter [facility] 06-04-2024 Nurse Note Nurse to nurse report given to Sj Cruz. [facility] 06-04-2024 Nurse Note Nurse to nurse report given to Sj Cruz. Attempted to wean patient to 2L NC. Patient sats dropped to 87%. 88-90% on 3L NC. Patient left on 4L NC at this time with continuous pulse ox showing 94%. Instructed to call out with any needs. documented in this encounter [facility] 06-04-2024 Hospital Discharge instructions Tish Diaz [...] current use of insulin (HCC) 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 Uncontrolled type 2 diabetes mellitus with complication, with long-term current use of insulin Pseudomonas aeruginosa infection Angina at rest (HCC) Sternal wound dehiscence intermediate (current) use of antibiotics Enlarged prostate with lower urinary tract symptoms (LUTS) Hypertensive heart disease Overview Signed 01/27/2022 12:43 PM by Interface, Incoming Problems- Carepath Conversion [facility]CHO [facility] 55% EF SHOWS HYPERTENSIVE HEART DISEASE COPD (chronic obstructive pulmonary disease) ([facility]) Overview Signed 01/27/2022 12:43 PM by Interface, [...] assistance Toileting minimal assistance Feeding Minimal assistance Sports Team Manager Minimal assistance Med Delivery no Wound Care [...] Status Date: 05/30/24 Discharging to Facility/ Agency [facility] [address] [place] [address] Dialysis Facility (if applicable) Name: Address: Dialysis Schedule: Phone: Fax: [place] Measurer/Perishable Freight Inspector signature: ICIAN SECTION Name: James Reyes Prognosis: {Rehab Prognosis:86035} Condition at Discharge: {Patient Condition:95294} Rehab Potential (if transferring to Rehab): {Rehab Prognosis:85384} Recommended Labs or Other Treatments After Discharge: BiPAP 18 over 10 cm H2O with 4 L supplemental O2 bleed at at bedtime. Fullface mask size medium The individual is being admitted to a nursing facility directly from an [facility] or a unit of a [facility] [place] that is not operated by or licensed by [facility] under section 5119.14 or 5160-3-15.1 5 The individual requires the level of services provided by a nursing facility for the condition for which he or she was treated in the hospital and, Physician Certification: I certify the above information and transfer of James Reyes is necessary for the continuing treatment of the diagnosis listed and that he requires {CRUZ Level of Care:69118} for {greater less than:86758} 30 days. Update Admission H&P: {CRUZ Changes in H&P:60413} PHYSICIAN SIGNATURE: {E-signature:30458} documented in this encounter [facility] 06-04-2024 Note Formatting of this n ote is different from the original. Images from the original note were not included. Updates DC order entered Confirmed pickup time of 4pm by transport [employer] [facility] ke Nancy notified Sreekanth motleyer notified [facility] 06-04-2024 Note Formatting of this n ote is different from the original. Images from the original note were not included. Updates DC order entered Confirmed pickup time of 4pm by [employer] [facility] ke Nancy notified Sreekanth motleyer notified [facility] 06-04-2024 Miscellaneous Notes Images from the original note were not included. Updates DC order entered Confirmed pickup time of 4pm by transport [employer] [facility] notified Sreekanth motleyer notified Confirmed pickup time of 4pm by transport [employer] at phone number [phone]. Location of facility drop off is [facility]. Facility notified via Careport, [facility] notified on secure chat. The BLS Vehicle you requested for James Mosley in unit/room [facility] [id number] on 06/04/2024 is scheduled to arrive at 4:00pm EST! [facility] is handling this ride and you can contact them at . Transport requested 4pm filler picker in [employer]. Awaiting time confirmation. Discharge med list transmitted to return back to [facility] via [facility] per TCC request. Problem: Knowledge Deficit Goal: [...] intake Outcome: Progressing Rounds this am Per [facility] communications: patient is LTC and does have [...] intake Outcome: Progressing Pt transferred out to [facility] service from icu. Problem: Knowledge Deficit Goal: [...] improved Outcome: Progressing Return referral placed to [facility] via Careport per TCC request. Await review and response regarding ability to accept. TCC notified. Inpatient status from [facility] with acute hypercapnic resp failure. Admitted to ICU for NIV. Currently requiring high flow oxygen 60% fio2 and 40 liters. Receiving iv antibiotics, iv steroids, scheduled aerosols, and ss insulin coverage. Did task HOME HEALTH SCHEDULER to place return referral careport to [facility]. Anticipated discharge plan is to return to [facility] when medically stable. Problem: Knowledge Deficit Goal: [...] patent Outcome: Progressing documented in this encounter [facility] 06-04-2024 Note Formatting of this n ote might be different from the original. Confirmed pickup time of 4pm by transport [employer] at phone number [phone]. Location of facility drop off is [facility]. Facility notified via Careport, TCC notified on secure chat. The BLS Vehicle you requested for James Mosley in unit/room [address] on 06/04/2024 is scheduled to arrive at 4:00pm EST! [facility] is handling this ride and you can contact them at . [facility] 06-04-2024 Note Formatting of this n ote might be different from the original. Confirmed pickup time of 4pm by transport [employer] at phone number [phone]. Location of facility drop off is [facility]. Facility notified via Careport, TCC notified on secure chat. The BLS Vehicle you requested for James Mosley in unit/room [facility] B2-250 on 06/04/2024 is scheduled to arrive at 4:00pm EST! [facility] is handling this ride and you can contact them at . [facility] 06-04-2024 Note Formatting of this n ote might be different from the original. Transport requested 4pm filler picker in [employer]. Awaiting time confirmation. [facility] 06-04-2024 Note Formatting of this n ote might be different from the original. Transport requested 4pm filler picker in [employer]. Awaiting time confirmation. [facility] 06-04-2024 Note Formatting of this n ote might be different from the original. Discharge med list transmitted to return back to [facility] via Careport per TCC request. [facility] 06-04-2024 Note Formatting of this n ote might be different from the original. Discharge med list transmitted to return back to [facility] via Careport per TCC request. [facility] 06-04-2024 Note [facility] 06-04-2024 History of Present illness Narrative Images from the original note were not included. [facility], Pulmonary Critical Care and Sleep Medicine Patient [...] WC ipratropium-albuterol, 3 mL, Nebulization, TID pancrelipase (Wfi-Mljy-Hbog), 1 capsule, Oral, TID WC pantoprazole, 40 [...] original note were not included. PHYSICAL THERAPY [facility] Treatment Note Name/MRN: James Reyes ([id number]) Date of : 1955 Age: 68 y.o. Room/Bed: B2-250/B2-250 B Visit #: 1 out of 5 visits Discharge Recommendation: [facility] Facility Equipment Needed: (TBD by facility) Prior [...] (ther ex and ther act) Billie Epstein WARPER FIXER Cosigned by Arabella Shen, PT at 06/04/2024 1:14 PM EST Patient currently off unit, will attempt smoking cessation counseling at a later time. Images from the original note were not included. [facility], Pulmonary Critical Care and Sleep Medicine Patient [...] TID mupirocin, 1 Application, Nasal, BID pancrelipase (Oyh-Eaue-Irfc), 1 capsule, Oral, TID WC pantoprazole, 40 [...] MD Room#: B2-266/B2-266 A BRIEF HOSPITAL COURSE: 05/30Micdanika Reyes is a 68 y.o. 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 08/08/2017 COPD (chronic obstructive pulmonary disease) (HCC) Developmental disorder Diabetes mellitus (HCC) Esophageal reflux Gastritis see EGD on 03/29/2016 GERD (gastroesophageal reflux disease) Hyperlipidemia IBS (irritable bowel syndrome) Mixed Obesity Osteoarthritis Pain management Plantar fasciitis, bilateral Unspecified sleep apnea Urinary retention LABS: CBC: Recent Labs 06/01/24 0410 06/02/24 0154 06/03/24317 WBC 9.1 7.5 6.1 RBC 3.16* 3.11* 3.22* HGB 9.2* 8.9* 9.2* HCT 30.7* 29.6* 30.6* MCV 97.2 95.2 95.0 RDW 15.4* 15.1* 15.1* PLT 205 206 197 BMP: Recent Labs 06/01/24 0410 06/02/24 0154 06/03/24317 NA 133* 136 137 K 4.8 4.6 4.3 CL 105 106 105 CO2 22* 24 27 BUN 62* 50* 37* CREATININE 1.43* 1.20 1.03 GLUCOSE 253* 224* 203* CALCIUM 8.5* 8.3* 8.3* ANIONGAP 6 6 5 LIVER PROFILE: Recent Labs 06/03/24 0318 AST 14 ALT 10 BILITOT 0.2 ALKPHOS [...] TID mupirocin, 1 Application, Nasal, BID pancrelipase (Rbc-Hmif-Vozu), 1 capsule, Oral, TID WC pantoprazole, 40 [...] the next 24-48 hours - Location - [facility] (Non-Skilled) - Pending the following [...] PATRICIA Bonilla CNP Division of Hospitalist Medicine [facility] Respiratory Care Department Progress Note As part [...] presents to the emergency department from a longterm facility for evaluation of nausea, vomiting, shortness [...] acute respiratory failure and respiratory acidosis 06/01 0326 transferred out of ICU to our medical [...] Acute kidney injury (HCC) 09/11/2015 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 08/08/2017 COPD (chronic obstructive pulmonary disease) (HCC) Developmental disorder Diabetes mellitus (HCC) Esophageal reflux Gastritis see EGD on 03/29/2016 GERD (gastroesophageal reflux disease) Hyperlipidemia IBS (irritable bowel syndrome) Mixed Obesity Osteoarthritis Pain management Plantar fasciitis, bilateral Unspecified sleep apnea Urinary retention LABS: CBC: Recent Labs 05/31/2440406/01/240 06/02/24 0154 WBC 11.4* 9.1 7.5 RBC 3.41* 3.16* 3.11* HGB 9.8* 9.2* 8.9* HCT 33.8* 30.7* 29.6* MCV 99.1* 97.2 95.2 RDW 15.3* 15.4* 15.1* PLT 194 205 206 BMP: Recent Labs 05/31/2440406/01/2440906/02/24 015 NA 139 133* 136 K 4.8 4.8 [...] daily mupirocin, 1 Application, Nasal, BID pancrelipase (Ayy-Ighe-Zxwk), 1 capsule, Oral, TID WC pantoprazole, 40 [...] AlondraPATRICIA Taveras CNP Division of Hospitalist Medicine Acute care [facility] Images from the original note were not included. PHYSICAL THERAPY [facility] Initial Evaluation Name/MRN: James Reyes ([id number]) Evaluation Date: 06/01/2024 Date of : 1955 Admission Date: 05/30/2024 8:35 AM Age: 68 y.o. 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 08/08/2017 COPD (chronic obstructive pulmonary disease) [...] 07/18/2022 Performed by David Chen MD at [facility] OR CORONARY ARTERY BYPASS GRAFT FOOT [...] bowel syndrome) 08/08/2017 Acute hypercapnic respiratory failure ([facility]) 05/30/2024 Closed head injury, initial encounter 11/29/2023 Uncontrolled type 2 diabetes mellitus with hyperglycemia, with long-term current use of insulin ([facility]) 10/30/2017 Uncontrolled type 2 diabetes mellitus with complication, with long-term current use of insulin 10/25/2017 Pseudomonas aeruginosa infection 10/20/2017 Sternal wound dehiscence 10/20/2017 intermediate (current) use of antibiotics 10/20/2017 Wound disruption, post-op, skin, initial encounter 10/16/2017 Dyslipidemia 08/08/2017 Knee osteoarthritis 08/08/2017 Insulin dependent diabetes mellitus 08/08/2017 MINERVA (obstructive sleep apnea) 08/08/2017 Tobacco abuse 08/08/2017 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 08/08/2017 Angina at rest ([facility]) 08/08/2017 Hypertensive heart disease 08/08/2017 COPD (chronic obstructive pulmonary disease) ([facility]) 08/08/2017 Chest pain 08/06/2017 Colitis, collagenous 06/15/2017 Anemia 05/23/2017 Gastroesophageal reflux disease without esophagitis 05/23/2017 Colitis 05/21/2017 Esophagitis, reflux 04/26/2017 Type 2 diabetes, uncontrolled, with neuropathy 04/26/2017 Hiatal hernia 02/21/2017 Arthritis of foot, degenerative 01/09/2017 Enlarged prostate with lower urinary tract symptoms (LUTS) 09/07/2016 Morbid obesity ([facility]) 08/12/2016 Shoulder pain, left 10/23/2014 Knee pain, [...] events, decreased short term memory, and 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 Reports year as "3029." Did state "[facility]" as location after cueing, initially reported location [...] Raw Score (No Stairs) : 7 [facility] Score: Static standing (1 or more minutes) [...] of Care supervision is transferred to a [facility] Physical Therapist. Goals and/or [...] Weight 135 kg (296 lb 11.2 oz) (05/30/241900) BMI Body mass index is 40.24 kg/m [...] muscle mass loss Fluid Accumulation: Mild Extremities Master Mechanic Strength: Not Performed Nutrition Assessment: Pt is a 68 y/o male admitted to [facility] with acute hypercapnic respiratory failure- admitted with vomiting coffee ground emesis and SOB. Pt came from [facility] s/p open heart procedure. Pt remains NPO [...] (kg): 135 kg Total Energy Requirements (kcals/day): 3560-3204 kcals (11-14 kcals/kg) Weight Used for Protein Requirements: [place] Weight in Kg Used for Protein Requirements: [...] (276#-05/12/23, 284#-03/08/24) % Weight Change (Calculated): 7.2 [place] Body Weight (lbs) (Calculated): 178 lbs [place] Body Weight (Kg) (Calculated): 81 kg % [place] Body Weight (Calculated): 166.3 % BMI (kg/m2) [...] soon to determine Alejandra Olivas RD Contact: *[phone] or via Secure Chat Vancomycin therapy has been discontinued by Dr. Haydee Willis on 30may2024. Thank you for the consult. Pharmacy signing off for vancomycin dosing. Henok Chang PharmD, Date: 05/30/24 Time: 6:10 PM Patient currently on NIV, smoking cessation counseling held at this time. documented in this encounter [facility] 06-04-2024 Note Patient currently of f unit, will attempt smoking cessation counseling at a later time. [facility] 06-04-2024 Plan of care note Problem: [...] Interventions Goal: Promote nutritional intake Outcome: Progressing [facility] 06-03-2024 Nurse Note Attempted to wean patient to 2L NC. Patient sats dropped to 87%. 88-90% on 3L NC. Patient left on 4L NC at this time with continuous pulse ox showing 94%. Instructed to call out with any needs. [facility] 06-03-2024 Note Formatting of this n ote might be different from the original. Rounds this am Per [facility] communications: patient is LTC and does have bedhold. No auth needed to return - just a time and any updates 96% on RA this am Updates: Attempted to wean patient to 2L NC. Patient sats dropped to 87%. 88-90% on 3L NC. Patient left on 4L NC [facility] 06-03-2024 Note Formatting of this n ote might be different from the original. Rounds this am Per [facility] communications: patient is LTC and does have bedhold. No auth needed to return - just a time and any updates 96% on RA this am Updates: Attempted to wean patient to 2L NC. Patient sats dropped to 87%. 88-90% on 3L NC. Patient left on 4L NC [employer] 06-03-2024 Plan of care note Problem: Knowledge [...] Interventions Goal: Promote nutritional intake Outcome: Progressing [facility] [employer] 06-02-2024 Consult note Formatting of th is note is different from the original. Images from the original note were not included. 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 Uncontrolled type 2 diabetes mellitus with complication, with long-term current use of insulin IBS (irritable bowel syndrome) Pseudomonas aeruginosa infection Angina at rest ([facility]) Sternal wound dehiscence manager long term care (current) use of antibiotics Enlarged prostate with lower urinary tract symptoms (LUTS) Hypertensive heart disease COPD (chronic obstructive pulmonary disease) ([facility]) Arthritis of foot, degenerative Hiatal hernia Colitis Chest pain Anemia Colitis, collagenous Gastroesophageal reflux disease without esophagitis Closed head injury, initial encounter Acute hypercapnic respiratory failure ([facility]) Reason for Consult Respiratory failure on BiPAP. 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 pancrelipase, Whu-Dmhz-Wtpo, (Creon) [id number] units capsule 3 times daily with meals [...] ml Output 3300 ml Net -1750 ml @[id number]@ Physical Exam General appearance: Sleepy easily awake [...] note please contact the signing provider directly. [employer] Phone: 06-02-2024 Consult note Formatting of th is note is different from the original. Images from the original note were not included. [facility], Pulmonary Medicine [address] [place] [id number] Patient - James Reyes [facility] # - [id number] - 1955 Date of Admission - 05/30/2024 8:35 AM Date of evaluation - 06/02/2024 Room - B2-266/-[facility] A Hospital Day - 3 Consulting - Manjinder Sanchez MD Primary Care Physician - Chelle Troncoso MD Active Hospital Problem List Patient Active Problem List Diagnosis Shoulder pain, left Dyslipidemia Knee pain, bilateral Knee osteoarthritis Insulin dependent diabetes mellitus MINERVA (obstructive sleep apnea) Tobacco abuse Esophagitis, reflux Morbid obesity ([facility]) Type 2 diabetes, uncontrolled, with neuropathy Wound disruption, post-op, skin, initial encounter Uncontrolled type 2 diabetes mellitus with hyperglycemia, with long-term current use of insulin ([facility]) 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 Uncontrolled type 2 diabetes mellitus with complication, with long-term current use of insulin IBS (irritable bowel syndrome) Pseudomonas aeruginosa infection Angina at rest ([facility]) Sternal wound dehiscence manager long term care (current) use of antibiotics Enlarged prostate with lower urinary tract symptoms (LUTS) Hypertensive heart disease COPD (chronic obstructive pulmonary disease) ([facility]) Arthritis of foot, degenerative Hiatal hernia Colitis Chest pain Anemia Colitis, collagenous Gastroesophageal reflux disease without esophagitis Closed head injury, initial encounter Acute hypercapnic respiratory failure ([facility]) Reason for Consult Respiratory failure on BiPAP. 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 pancrelipase, Xuc-Rqym-Hruk, (Creon) 48132-84216 units capsule 3 times daily with meals [...] ml Output 3300 ml Net -1750 ml @[id number]@ Physical Exam General appearance: Sleepy easily awake [...] creatinine, and vancomycin levels interfaced automatically to [employer] and data has been analyzed and interpreted. 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 02/22/23 Shannan Corcoran MD cholestyramine (Questran) 4 g packet [...] Historical Provider, ergocalciferol (Vitamin D-2) 1.25 MG (66814 UT) capsule Take 1.25 mg by mouth [...] nystatin (Mycostatin) cream 11/08/22 Historical Provider, pancrelipase, Mwb-Aiid-Jsui, (Creon) 34232-73896 units capsule Take by mouth 3 times [...] last 72 hours. CBC: Recent Labs 05/30/2414 05/30/24936 WBC 14.1* -- HGB 10.6* 11.3* HCT 34.7* -- PLT 190 -- MCV 94.8 -- RDW 15.5* -- ABGs: Recent Labs 05/30/24 0937 PHART 7.290* PCZ8FHZ 50.7* PO2ART 64.1* KXV0DUV 23.8 T3SAXHBG 89.5* Lactic Acid: No lab exists for [...] physicians, excluding procedures. documented in this encounter [facility] 06-02-2024 Telephone encounter Note Name of Caller: [facility] Physician requesting Consult: Laura Patient Location (facility name, room, bed number): [facility] Patient Diagnosis/Reason for Consult: Respiratory Failure on Bipap Provider being paged: James Time page was sent: 7:12 Department of provider being paged: Pulmonology Page Content: Inpatient Pulmonary [facility] resp failure on bipap Message sent via Secure Chat [facility] 06-02-2024 Miscellaneous Notes Name of Caller: [facility] Physician requesting Consult: Laura Patient Location (facility name, room, bed number): [facility] Patient Diagnosis/Reason for Consult: Respiratory Failure on Bipap Provider being paged: James Time page was sent: 7:12 Department of provider being paged: Pulmonology Page Content: Inpatient Pulmonary [facility] resp failure on bipap Message sent via Secure Chat [facility] Note Formatting of this n ote might be different from the original. Pt transferred out to [facility] service from icu. [employer] Phone: 06-02-2024 Note Formatting of this n ote might be different from the original. Pt transferred out to [facility] service from icu. [employer] Phone: 06-02-2024 Plan of care note Problem: [...] Interventions Goal: Promote nutritional intake Outcome: [facility] Plan of care note Problem: Knowledge [...] Interventions Goal: Promote nutritional intake Outcome: Progressing [facility] 06-01-2024 Note Problem: Potential f or Compromised Skin Integrity Goal: Nutritional status is improving Outcome: Progressing Problem: Urinary Incontinence Goal: Perineal skin integrity is maintained or improved Outcome: Progressing [facility] 06-01-2024 Plan of care note Problem: Potential for Compromised Skin Integrity Goal: Nutritional status is improving Outcome: Progressing Problem: Urinary Incontinence Goal: Perineal skin integrity is maintained or improved Outcome: Progressing [facility] 05-31-2024 Note Formatting of this n ote might be different from the original. Return referral placed to [facility] via Careport per TCC request. Await review and response regarding ability to accept. TCC notified. [facility] 05-31-2024 Note Formatting of this n ote might be different from the original. Return referral placed to [facility] via Careport per TCC request. Await review and response regarding ability to accept. TCC notified. [facility] 05-31-2024 Note Return referral plac ed to [facility] via Careport per TCC request. Await review and response regarding ability to accept. TCC notified. [facility] 05-31-2024 Note Formatting of this n ote might be different from the original. Inpatient status from [facility] with acute hypercapnic resp failure. Admitted to ICU for NIV. Currently requiring high flow oxygen 60% fio2 and 40 liters. Receiving iv antibiotics, iv steroids, scheduled aerosols, and ss insulin coverage. Did task HOME HEALTH SCHEDULER to place return referral careport to [facility]. Anticipated discharge plan is to return to [facility] when medically stable. [facility] 05-31-2024 Note Formatting of this n ote might be different from the original. Inpatient status from [facility] with acute hypercapnic resp failure. Admitted to ICU for NIV. Currently requiring high flow oxygen 60% fio2 and 40 liters. Receiving iv antibiotics, iv steroids, scheduled aerosols, and ss insulin coverage. Did task HOME HEALTH SCHEDULER to place return referral careport to [facility]. Anticipated discharge plan is to return to [facility] when medically stable. [facility] 05-31-2024 Plan of care note Problem: [...] Goal: Urinary catheter remains patent Outcome: Progressing [facility] 05-30-2024 Note Patient currently on NIV, smoking cessation counseling held at this time. [facility] 05-30-2024 History and physical note CCM consult on 05/30/24 serves as H&P [facility] 05-30-2024 Note CCM consult on 05/30 serves as H&P [facility] 05-30-2024 History and physical note CCM consult on 05/30/24 serves as H&P documented in this encounter [facility] 05-30-2024 Consult note Formatting of th [...] creatinine, and vancomycin levels interfaced automatically to [employer] and data has been analyzed and interpreted. [...] Gasca RPh Pharmacist Available via Secure Chat [facility] 05-30-2024 Emergency department Note Report given to CLAIMS TECHNICIAN [facility] 05-30-2024 Emergency department Note Report given to CLAIMS TECHNICIAN [facility] INTENSIVE CARE UNIT ICU 2 [...] in via squad he has been at [facility] since having open heart. He is normally not on oxygen. HPI Historian is patient Nurse's notes for past medical history, surgical history, social history were reviewed. Medications and allergies reviewed. 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 ergocalciferol (Vitamin D-2) 1.25 MG (94669 UT) capsule Take 1.25 mg by mouth [...] for chest pain. nystatin (Mycostatin) cream pancrelipase, Pnx-Jkcc-Nzmi, (Creon) 54314-94200 units capsule Take by mouth 3 times [...] attack Mother 61.00 Heart disease Father Other ([id number]) Brother accident Coronary artery disease Father Diabetes [...] 247 (*) Narrative: Performed by: Nicole Blanchard [facility], [address] [place] [id number] CLIA ID: [id number] SARS-COV-2, FLU A/B, AND RSV COMBO - [...] In compliance with this authorization, please visit www.fda.gov/media/835964/download or www.fda.gov/media/954083/download to access the applicable information sheets. LACTIC [...] Procedure Abnormality Status --------- ------ Legionella and Streptoco...[[id number]] Urine Hold Cup[[id number]] Please view results for these tests on the individual orders. MRSA BY PCR LEGIONELLA AND STREPTOCOCCUS URINE ANTIGEN BLOOD GAS ARTERIAL HIGH SENSITIVITY TROPONIN, SERIAL, THIRD TEST COMPLETE URINALYSIS WITH REFLEX TO CULTURE Narrative: The following orders were created for panel order Complete Urinalysis with reflex to Culture. Procedure Abnormality Status --------- ------ Complete Urinalysis[[id number]] Please view results for these tests on [...] (has no administration in time range) pancrelipase (Jow-Enxr-Fnlm) (Creon) 61748-556010 units per capsule 1 capsule (has no [...] specified. 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 ergocalciferol (Vitamin D-2) 1.25 MG (52784 UT) capsule Take 1.25 mg by mouth [...] for chest pain. nystatin (Mycostatin) cream pancrelipase, Tmu-Vctp-Ibza, (Creon) 81469-73522 units capsule Take by mouth 3 times daily (with meals). tiotropium (Spiriva) [address] 1 capsule into inhaler and inhale in the morning. 2 puffs. ALLERGIES Penicillins and Tetracyclines & related FAMILY HISTORY Family History Problem Relation Name Age of Onset Heart attack Mother 61.00 Heart disease Father Other ([id number]) Brother accident Coronary artery disease Father Diabetes [...] Response: Oriented Best Motor Response: Follows commands [place] Coma Scale Score: 15 PHYSICAL EXAM ED [...] Abnormal Glucose 247 (*) Narrative: Performed by: [facility], [address] [place] [address] CLIA ID: [id number] SARS-COV-2, FLU A/B, AND RSV COMBO - [...] In compliance with this authorization, please visit www.fda.gov/media/944394/download or www.fda.gov/media/837037/download to access the applicable information sheets. BLOOD [...] Procedure Abnormality Status --------- ------ Legionella and Streptoco...[[id number]] Urine Hold Cup[[id number]] Please view results for these tests on the individual orders. MRSA BY PCR LEGIONELLA AND STREPTOCOCCUS URINE ANTIGEN COMPLETE URINALYSIS WITH REFLEX TO CULTURE Narrative: The following orders were created for panel order Complete Urinalysis with reflex to Culture. Procedure Abnormality Status --------- ------ Complete Urinalysis[[id number]] Please view results for these tests on [...] (150 mg Oral Given 05/30/24 1353) pancrelipase (Swl-Fnvs-Rjiw) (Creon) 51340-580442 units per capsule 1 capsule (1 capsule [...] given steroids and breathing treatments placed on pomologist. nursing notes and medical records reviewed, PMH of CAD, stable angina, IBS, HLD, type 2 diabetes, HTN, COPD. Differential considerations included electrolyte derangement versus ACS versus [place] versus PE versus pneumonia versus acidosis Initial [...] PM EST Pt arrived via EMS from snf. Co coffee ground emesis upon arrival EMS noted 70% SpO2.EMS placed nasal cannula at 4L. Noted 80%. Moved to NRB at 90% SPO2. EMS placed line and 1 breathing tx . Placed in bed. Provider and EKG at bedside. Vials assessed. Continue with plan of care. 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 07/28/21 Historical Provider, MD Advair Diskus 250-50 MCG/ACT aerosol powder 01/21/23 [...] mouth 2 times daily (with meals). 02/22/23 Shannan Corcoran MD cholestyramine (Questran) 4 g packet [...] Historical Provider, ergocalciferol (Vitamin D-2) 1.25 MG (28821 UT) capsule Take 1.25 mg by mouth [...] nystatin (Mycostatin) cream 11/08/22 Historical Provider, pancrelipase, Vdp-Fuwc-Kzgi, (Creon) 35005-39737 units capsule Take by mouth 3 times [...] ABGs: Recent Labs 05/30/24 0937 PHART 7.290* HUD9OJG 50.7* PO2ART 64.1* GLM6FUS 23.8 V4QYXLVZ 89.5* Lactic Acid: No lab exists for [...] team members and physicians, excluding procedures. [employer] [facility] 05-30-2024 Emergency department Triage note Pt arrived via EMS from [facility]. Co coffee ground emesis upon arrival EMS noted 70% SpO2.EMS placed nasal cannula at 4L. Noted 80%. Moved to NRB at 90% SPO2. EMS placed line and 1 breathing tx . Placed in bed. Provider and EKG at bedside. Vials assessed. Continue with plan of care. [facility] [employer] 05-30-2024 Physician Emergency department Note [facility] INTENSIVE CARE UNIT ICU 2 [...] in via squad he has been at [facility] since having open heart. He is normally not on oxygen. HPI Historian is patient Nurse's notes for past medical history, surgical history, social history were reviewed. Medications and allergies reviewed. 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 ergocalciferol (Vitamin D-2) 1.25 MG (55738 UT) capsule Take 1.25 mg by mouth [...] for chest pain. nystatin (Mycostatin) cream pancrelipase, Fhq-Bxvt-Bixc, (Creon) 29710-47712 units capsule Take by mouth 3 times [...] attack Mother 61.00 Heart disease Father Other ([id number]) Brother accident Coronary artery disease Father Diabetes [...] 247 (*) Narrative: Performed by: [facility], [address] [place] [address] [place] [address] CLIA ID: [id number] SARS-COV-2, FLU A/B, AND RSV COMBO - [...] In compliance with this authorization, please visit www.fda.gov/media/051077/download or www.fda.gov/media/299551/download to access the applicable information sheets. LACTIC [...] Procedure Abnormality Status --------- ------ Legionella and Streptoco...[[id number]] Urine Hold Cup[[id number]] Please view results for these tests on the individual orders. MRSA BY PCR LEGIONELLA AND STREPTOCOCCUS URINE ANTIGEN BLOOD GAS ARTERIAL HIGH SENSITIVITY TROPONIN, SERIAL, THIRD TEST COMPLETE URINALYSIS WITH REFLEX TO CULTURE Narrative: The following orders were created for panel order Complete Urinalysis with reflex to Culture. Procedure Abnormality Status --------- ------ Complete Urinalysis[[id number]] Please view results for these tests on [...] (has no administration in time range) pancrelipase (Olz-Zjoa-Lduc) (Creon) 34179-678628 units per capsule 1 capsule (has no [...] specified. 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 ergocalciferol (Vitamin D-2) 1.25 MG (67488 UT) capsule Take 1.25 mg by mouth [...] for chest pain. nystatin (Mycostatin) cream pancrelipase, Bjt-Juwx-Fxjl, (Creon) 71406-06832 units capsule Take by mouth 3 times daily (with meals). tiotropium (Spiriva) [address] 1 capsule into inhaler and inhale in the morning. 2 puffs. ALLERGIES Penicillins and Tetracyclines & related FAMILY HISTORY Family History Problem Relation Name Age of Onset Heart attack Mother 61.00 Heart disease Father Other ([id number]) Brother accident Coronary artery disease Father Diabetes [...] Homeless in the Last Year: No SCREENINGS [place] Coma Scale Best Eye Response: Spontaneous Best [...] (*) Narrative: Performed by: [facility], [address] [place] [id number] CLIA ID: [id number] SARS-COV-2, FLU A/B, AND RSV COMBO - [...] In compliance with this authorization, please visit www.fda.gov/media/236205/download or www.fda.gov/media/685013/download to access the applicable information sheets. BLOOD [...] Procedure Abnormality Status --------- ------ Legionella and Streptoco...[[id number]] Urine Hold Cup[[id number]] Please view results for these tests on the individual orders. MRSA BY PCR LEGIONELLA AND STREPTOCOCCUS URINE ANTIGEN COMPLETE URINALYSIS WITH REFLEX TO CULTURE Narrative: The following orders were created for panel order Complete Urinalysis with reflex to Culture. Procedure Abnormality Status --------- ------ Complete Urinalysis[[id number]] Please view results for these tests on [...] (150 mg Oral Given 05/30/24 1353) pancrelipase (Xdt-Ajua-Lqaz) (Creon) 08648-275541 units per capsule 1 capsule (1 capsule [...] given steroids and breathing treatments placed on pomologist. nursing notes and medical records reviewed, PMH of CAD, stable angina, IBS, HLD, type 2 diabetes, HTN, COPD. 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 02/22/23 Yes Otfrphilip Corcoran MD cholestyramine (Questran) 4 g packet [...] Historical Provider, ergocalciferol (Vitamin D-2) 1.25 MG (09768 UT) capsule Take 1.25 mg by mouth [...] (Mycostatin) cream 11/08/22 Yes Historical Provider, pancrelipase, Pux-Mddl-Eadx, (Creon) 06906-94699 units capsule Take by mouth 3 times [...] attack Mother 61.00 Heart disease Father Other ([id number]) Brother accident Coronary artery disease Father Diabetes [...] PVR: 122 mL documented in this encounter [facility] 05-02-2024 Note Aydee from [facility] in [place] called to schedule the patient an appt for incontinence and frequency. They will fax over a referral and notes for the pt. Appt scheduled 05/13/[address] Marino in [place]. [facility] 05-02-2024 Telephone encounter Note [facility] [place] called to schedule the patient an appt for incontinence and frequency. They will fax over a referral and notes for the pt. Appt scheduled 05/13/[address] Marino in [place]. [facility] 05-02-2024 Miscellaneous Notes [facility]dee from [facility] [place] called to schedule the patient an appt for incontinence and frequency. They will fax over a referral and notes for the pt. Appt scheduled 05/13/[address] Marino in [place]. documented in this encounter [facility] 03-08-2024 History of Present illness Narrative Images from the original note were not included. [facility] CARDIOLOGY [address] [address] Dept: [phone] Dept Visit type: Established : 1955 Reason for Visit: 6 Month Follow-up Assessment and Plan Coronary artery disease involving coronary bypass graft of nenana heart with chest pain. Bypass surgery in [...] mouth daily. ergocalciferol (Vitamin D-2) 1.25 MG (11776 UT) capsule Take 1.25 mg by mouth [...] for chest pain. 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 08/08/2017 COPD (chronic obstructive pulmonary disease) [...] attack Mother 61.00 Heart disease Father Other ([id number]) Brother accident Coronary artery disease Father Diabetes [...] PATRICIA Mills CNP documented in this encounter [facility] 03-08-2024 Instructions PATRICIA Mills CNP - [...] ( low- to moderate grade) Office number [phone] documented in this encounter [facility] 12-05-2023 Hospital course Narrative Images from [...] Acute kidney injury (HCC) 09/11/2015 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 Pt lost his [...] Commonly known as: Bentyl ergocalciferol 1.25 MG (68954 UT) capsule Commonly known as: Vitamin D-2 [...] nystatin cream Commonly known as: Mycostatin pancrelipase (Wqc-Xeow-Vqmm) 24118-98705 units capsule Commonly known as: Creon pregabalin [...] Medications These medications were sent to [facility] - [place], [place] - [address], [place] [address] cefdinir 300 MG capsule You can get these medications from any pharmacy Bring a paper prescription for each of these medications pregabalin 150 MG capsule Recommended Follow-up: No follow-up provider specified. Complexity of Follow up: [] Moderate Complexity: follow up within 7-14 calendar days (30299) [x] Severe Complexity: follow up within 7 calendar days (93433) Follow up Testing, Pending results or Referrals [...] MD Division of Hospitalist Medicine Inpatient Medical Services/[facility] 12/05/2023, 4:56 PM documented in this encounter [facility] 12-05-2023 Note [facility] 12-05-2023 History of Present illness Narrative Images from the original note were not included. PHYSICAL THERAPY [facility] Name/MRN: James Reyes ([id number]) Date: 12/05/2023 Attempted treatment at 1201, pt sitting EOB, stating that he is going to [facility] later today, politely declining therapy at this time. Benjie Torres PT Images from the original note were not included. PHYSICAL THERAPY [facility] Name/MRN: James Reyes ([id number]) Date: 12/04/2023 Attempted PT. Pt was sleeping soundly. Will re-attempt PT at later time/date as schedule permits. Heather Berkowitz, WARPER FIXER Images from the original note were not included. OCCUPATIONAL THERAPY [facility] Initial Evaluation Name/MRN: James Reyes ([id number]) Evaluation Date: 12/04/2023 Date of : 1955 Admission Date: 11/29/2023 3:34 PM Age: 68 y.o. [facility] A Discharge Recommendation: [facility] Facility Assessment IMPRESSION: ADL activity is limited [...] times. C/o pain in "tailbone" and back. tooling engineering tech in room notified to handoff to RN. 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 08/08/2017 COPD (chronic obstructive pulmonary disease) [...] hyperglycemia, with long-term current use of insulin ([facility]) 10/30/2017 Uncontrolled type 2 diabetes mellitus with complication, with long-term current use of insulin 10/25/2017 Pseudomonas aeruginosa infection 10/20/2017 Sternal wound dehiscence 10/20/2017 intermediate (current) use of antibiotics 10/20/2017 Wound disruption, post-op, skin, initial encounter 10/16/2017 Dyslipidemia 08/08/2017 Knee osteoarthritis 08/08/2017 Insulin dependent diabetes mellitus 08/08/2017 MINERVA (obstructive sleep apnea) 08/08/2017 Tobacco abuse 08/08/2017 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 08/08/2017 Angina at rest ([facility]) 08/08/2017 Hypertensive heart disease 08/08/2017 COPD (chronic obstructive pulmonary disease) ([facility]) 08/08/2017 Chest pain 08/06/2017 Colitis, collagenous 06/15/2017 Anemia 05/23/2017 Gastroesophageal reflux disease without esophagitis 05/23/2017 Colitis 05/21/2017 Esophagitis, reflux 04/26/2017 Type 2 diabetes, uncontrolled, with neuropathy 04/26/2017 Hiatal hernia 02/21/2017 Arthritis of foot, degenerative 01/09/2017 Enlarged prostate with lower urinary tract symptoms (LUTS) 09/07/2016 Morbid obesity ([facility]) 08/12/2016 Shoulder pain, left 10/23/2014 Knee pain, [...] otherwise WFL Social/Functional History Patient admitted from [facility]. Assistive Equipment: rollator Prior Level of Function ADL Assistance: Reports assist PRN Ambulation Assistance: Independent rollator Transfer Assistance: Independent Objective ADLs LE Dressing: Dependent, Socks Toileting: Dependent, Standing at bedside, posterior hygiene due to soiled pads. OT addressing static balance/posture and safety managing rollator (pt adamant about using rollator to stand versus walker). tooling engineering tech present to assist with hygiene. LEs [...] to eat lunch meal per pt request. tooling engineering tech aware and confirming pt has been [...] of Care supervision is transferred to a [facility] Therapy Services Occupational Therapist. Goals and/or treatment plan was established in collaboration with patient/family/other representatives. Pretty Daley OTR/L Hospitalist Progress Note 12/04/2023 Subjective: Admit Date: 11/29/2023 PCP: No primary care provider on file. [facility]#: [facility] A BRIEF HOSPITAL COURSE: James is a 68 y.o. male with past medical history below who presents with chief complaint listed above. Pt was walking with his rollator on idio to go get cigarettes. 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 08/08/2017 COPD (chronic obstructive pulmonary disease) [...] 165 167 BMP: Recent Labs 12/02/2332812/03/23 0512/04/23 0238 NA 137 139 138 K 4.1 3.9 4.2 CL 113* 114* 114* CO2 18* 20* 19* BUN 23* 19 18 CREATININE 1.00 0.93 0.93 GLUCOSE 216* 134* 90 CALCIUM 8.5 8.4 8.6 ANIONGAP 5 5 5 LIVER PROFILE: Recent Labs 12/02/2332812/03/23 0525 12/04/23 023 AST 16 13* 14* ALT 14 [...] WC mometasone-formoterol, 2 puff, Inhalation, BID pancrelipase (Ydo-Qyyt-Netq), 2 capsule, Oral, TID WC pregabalin, 150 [...] Ucx - Medically stable for discharge to [facility] - am labs, replace lytes prn - [...] Strickland MD Division of Hospitalist Medicine Acute Care [facility] Hospitalist Progress Note 12/03/2023 Subjective: Admit Date: 11/29/2023 PCP: No primary care provider on file. [facility] BRIEF HOSPITAL COURSE: James is a 68 y.o. male with past medical history below who presents with chief complaint listed above. Pt was walking with his rollator on idio to go get cigarettes. 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 Pt lost his [...] DC - awaiting SNF placement. 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. HTN controlled w/ Coreg. Dyslipidemia wir [...] DC - awaiting SNF placement. 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. HTN controlled w/ Coreg. Dyslipidemia w/ [...] he cannot read. Pt resides at a LT facility. PMHx notable for developmental delay. RD [...] On: Kcal/kg Weight Used for Energy Requirements: [place] Weight for Energy Calculation (kg): 86 kg Total Energy Requirements (kcals/day): 2580 Weight Used for Protein Requirements: [place] Weight in Kg Used for Protein Requirements: [...] History: Independent of feeding and Resides at [facility] Intake/Output Summary (Last 24 hours) at 12/03/2023 [...] WC mometasone-formoterol, 2 puff, Inhalation, BID pancrelipase (Plt-Deek-Diig), 2 capsule, Oral, TID WC pregabalin, 150 [...] FREET4 1.11 04/13/2022 VITD25 24 (L) 12/02/2023 [id number] 167 (L) 11/30/2023 FOLATE 3.7 11/30/2023 Lab [...] kg (279 lb) Weight Source: Bed Scale [place] Body Weight (lbs) (Calculated): 190 lbs [place] Body Weight (Kg) (Calculated): 86 kg BMI [...] this time, Continue current diet Debbie Whipple MS RD, LD Contact: or [employer] Chat (dial *[phone] from hospital phone) Hospitalist Progress Note 12/02/2023 Subjective: Admit Date: 11/29/2023 PCP: No primary care provider on file. Room#: W4-436/W4436 A BRIEF HOSPITAL COURSE: James is a 68 y.o. male with past medical history below who presents with chief complaint listed above. Pt was walking with his rollator on idio to go get cigarettes. 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 PHYSICAL THERAPY [facility] Initial Evaluation Name/MRN: James Reyes ([id number]) Evaluation Date: 12/01/2023 Date of : 1955 Admission Date: 11/29/2023 3:34 PM Age: 68 y.o. 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 Ness, normal except internal hemorrhoid COLONOSCOPY N/A 07/18/2022 Performed by David Chen MD at [facility] OR CORONARY ARTERY BYPASS GRAFT FOOT [...] hyperglycemia, with long-term current use of insulin ([facility]) 10/30/2017 Uncontrolled type 2 diabetes mellitus with complication, with long-term current use of insulin 10/25/2017 Pseudomonas aeruginosa infection 10/20/2017 Sternal wound dehiscence 10/20/2017 intermediate (current) use of antibiotics 10/20/2017 Wound disruption, post-op, skin, initial encounter 10/16/2017 Dyslipidemia 08/08/2017 Knee osteoarthritis 08/08/2017 Insulin dependent diabetes mellitus 08/08/2017 MINERVA (obstructive sleep apnea) 08/08/2017 Tobacco abuse 08/08/2017 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 08/08/2017 Angina at rest ([facility]) 08/08/2017 Hypertensive heart disease 08/08/2017 COPD (chronic obstructive pulmonary disease) ([facility]) 08/08/2017 Chest pain 08/06/2017 Colitis, collagenous 06/15/2017 Anemia 05/23/2017 Gastroesophageal reflux disease without esophagitis 05/23/2017 Colitis 05/21/2017 Esophagitis, reflux 04/26/2017 Type 2 diabetes, uncontrolled, with neuropathy 04/26/2017 Hiatal hernia 02/21/2017 Arthritis of foot, degenerative 01/09/2017 Enlarged prostate with lower urinary tract symptoms (LUTS) 09/07/2016 Morbid obesity ([facility]) 08/12/2016 Shoulder pain, left 10/23/2014 Knee pain, [...] Hearing: normal Social/Functional History Patient admitted from [facility]. 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 Mod cues for upright posture, to keep [...] Raw Score (No Stairs) : 12 [facility] Score: Walked 10 steps or more (i.e. [...] 0817 Time Out 0840 Minutes 23 Kyle Moreland, PT Patient's Physical Therapy Plan of Care supervision is transferred to a [facility] Services Physical Therapist. Goals and/or treatment plan was established in collaboration with patient/family/other representatives. Hospitalist Progress Note 12/01/2023 Subjective: Admit Date: 11/29/2023 PCP: No primary care provider on file. [facility] BRIEF HOSPITAL COURSE: James is a 68 y.o. male with past medical history below who presents with chief complaint listed above. Pt was walking with his rollator on idio to go get cigarettes. 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 08/08/2017 COPD (chronic obstructive pulmonary disease) [...] WC mometasone-formoterol, 2 puff, Inhalation, BID pancrelipase (Rik-Zkzy-Ilov), 2 capsule, Oral, TID WC pregabalin, 150 mg, Oral, BID tamsulosin, 0.4 mg, Oral, BID tiotropium, 2 puff, Inhalation, Daily PRN medications: acetaminophen OR acetaminophen, albuterol, bisacodyl, dextrose, dextrose, glucagon (rDNA), glucose, labetalol, methyl salicylate-menthol, naloxone, ondansetron ODT OR ondansetron, oxyCODONE-acetaminophen, polyethylene glycol (PEG) 3350 Continuous sodium chloride, 50 mL/hr, Last Rate: 50 mL/hr (11/30/23 2816) Assessment Data: (CAT1) Reviewed 3 or more [...] Strickland MD Division of Hospitalist Medicine [facility] Respiratory Care Department [...] original note were not included. OCCUPATIONAL THERAPY [facility] Name/MRN: James Reyes ([id number]) Date: 11/30/2023 Returned to attempt Eval at 13:45 spoke to RN who stated patient is going to be leaving floor for an MRI very shortly and not to see patient at this time. OT will return to evaluate as schedule permits. Darlin Corea OT Images from the original note were not included. PHYSICAL THERAPY [facility] Name/MRN: James Reyes ([id number]) Date: 11/30/2023 Multiple attempts made throughout the day, pt receiving echo, lunch, and OOR. Will attempt as able. Kyle Moreland PT Speech-Language Pathology Patient passed the Nursing Swallowing Screening and is on a Regular diet, Cardiac: Low fat, Low cholesterol. High Fiber, DEBBIE with Thin liquids. Completed speech orders as per stroke protocol. Images from the original note were not included. OCCUPATIONAL THERAPY [facility] Name/MRN: James Reyes ([id number]) Date: 11/30/2023 Performed chart review. Attempted OT eval 10:59 patient is getting Echo completed bedside. Will return to evaluate as schedule permits. Darlin Corea OT Patient seen and examined at bedside. Refer to Dr. King H&P for further details. See new orders. Folri Strickland MD Division of Hospitalist Medicine [facility] documented in this encounter [facility] 12-05-2023 Nurse Note Wound Care consulted for Pressure Injury Prevention. Pt's Yang score= 14 on 12/04 Pt's pressure points assessed. Pt's Heels, Buttocks/coccyx, Back, Elbows, Occiput and ears all intact. Pt sitting on edge of bed eating lunch. Prevention Measures in place, including: Browder sheet with pillows, Heels elevated off bed on pillows, Zinc/Moisture Barrier ointment, Waffle chair cushion (obtained for pt). Skin Care precaution order set in place. Dietitian consult N/A, subscore=3. PT consult in place. Will continue to follow pt. Please Voicera for any questions or concerns. Liz Keane RN, BSN, CWCN [facility] 12-05-2023 Nurse Note Wound Care consulted for Pressure Injury Prevention. Pt's Yang score= 14 on 12/04 Pt's pressure points assessed. Pt's Heels, Buttocks/coccyx, Back, Elbows, Occiput and ears all intact. Pt sitting on edge of bed eating lunch. Prevention Measures in place, including: Browder sheet with pillows, Heels elevated off bed on pillows, Zinc/Moisture Barrier ointment, Waffle chair cushion (obtained for pt). Skin Care precaution order set in place. Dietitian consult N/A, subscore=3. PT consult in place. Will continue to follow pt. Please Voicera for any questions or concerns. Liz Keane RN, BSN, CWCN Report called to [facility] Patient is making inappropriate comments to nursing [...] or concerns. Kaycee Ricardo RN Krissy from [facility] called and states "James needs to return to baseline before he can return to us, he is usually independent with ADL's and walks safely with his rollator." Krissy's direct line [phone]. documented in this encounter [facility] 12-05-2023 Nurse Note Report called to [facility] 12-05-2023 Miscellaneous Notes Patient Choice Patient Name: JAMES REYES Date of : 1955 All Providers Sent Referral Name: [facility] Phone: [phone] Address: [address] [place] [address] [facility] Phone: [phone] Address: [address] [place] [address] Name: [facility] Phone: [phone] Address: [address] [place] [address] [address] [place] [address] Discharge med list transmitted to [facility] via [facility] per TCC request. Level of Care returned. Notified RN, TCC, and MD. Discharge order obtained. Uploaded PASRR and level of care to [facility] and sent to [facility]. Arranged for [facility] ambulance for transport thru [employer] for filler picker at 2 PM. Notified RN, TCC, pt's brother, Sreekanth, facility, and unit assistant of discharge time. Level of Care is back. Plan is discharge to [facility]. Once discharge is written. will set up transportation. Software Test Specialist will copy AVS. Bedside Nurse will call report to [phone]. I will task HOME HEALTH SCHEDULER to transmit MAR to [facility]. coverage for today. CRUZ completed, printed, and sent to [facility] along with additional clinical information to start Level of Care. PASRR completed by SHALONDA Smith. Await return of Level of Care. Images from the original note were not included. Care Management Progress Note [facility] willing to accept. Will need CRUZ completed for to get Level of care. Message in secure chat for bedside Nurse to complete. Once Level of Care is received facility can accept patient. Discharge Milestones and Delays Expected date/time: 12/06/[address] discharge order Complete med reconciliation Case mgmt discharge readiness Clinical Stability Diagnostic Workup Animal Rehabilitator Recommendations Imaging Results PT discharge readiness OT discharge readiness ATHLETIC TURF WORKER discharge readiness Patient Education Complete Expected Discharge [...] of [place] willing to accept. Will need Level of care, Discharge Milestones and Delays Expected date/time: 12/05/[address] discharge order Complete med reconciliation Case mgmt discharge readiness Clinical Stability Diagnostic Workup Animal Rehabilitator Recommendations Imaging Results PT discharge readiness OT discharge readiness ATHLETIC TURF WORKER discharge readiness Patient Education Complete Expected Discharge History Expected Date/Time Set By Reviewed At 12/05/2023 Jennifer Salazar RN 12/04/2023 9:11 AM 12/04/2023 Jennifer Salazar RN 12/01/2023 9:23 AM 12/01/2023 Sergio Ruff, DO 11/30/2023 12:41 AM 12/01/2023 Sergio Ruff, DO 11/29/2023 10:14 PM Length of Stay (Days): 5 GMLOS: No GMLOS Documented Referral placed to [facility] via [facility] per TCC request. Await review and response regarding ability to accept. TCC notified. Explained to patient his AL wanted him to go to skilled facility before returning home. Patient agreeable. I read facilities to patient. He made choices of ([facility]) [facility] and [facility]. Referrals in [facility]port. Patient will need Level [...] is improving Outcome: Progressing Referral placed to [facility] via [facility] per [facility] request. Await review and response regarding ability to accept. TCC notified. Care Managment Initial Assessment Date: 11/30/2023 Patient Name: James Reyes : 1955 Patient Information Source of Information: Patient Cognition/Language: WFL - Within Functional Limits Permission given to speak with patient pharmaceutical representative/caregiver as indicated: No Confirmation of Payer with patient/family: Payer Name: Medicaid [place]: No Confirmation of Primary Care Physician: (Does not know) Primary Caregiver: Self If assistance needed, confirmed caregiver ready, willing and able to care for patient at discharge: Yes Confirmed with: Living Arrangements Current Residence: Number of Floors Number of Entry Steps: Bed/Bath Levels: Facility: Assisted Living Facility Name: [facility] Plan to Return: Yes Lives with: Alone Support Systems: Comments (Other) (assisted living staff) Activities of Daily Living Ambulation: Independent (With rollator) Bathing/Dressing: Independent Elimination/Continence/Toileting: Independent Feeding: Independent Who Assists with Activities of Daily Living: Instrumental Activities of Daily Living Prescription Coverage: Yes Pharmacy Used: [facility] Medication Management: Transportation/Shopping: Transportation Mode: Needs [...] for: Additional Information: [place] per patient. From [facility] [employer]-Rollator. Per [facility] [employer]. DON-Patient will need to be at his baseline to return to AL. Will continue to follow for therapy recommendation. Jennifer Salazar RN Spoke to [facility]. Pt follows with PCP Dr.Richard Rodriguez with [facility] [phone] The patient is Moderately Stable - Low [...] adequate time for meals Collaborate with clinical concrete mason Collaborate with interdisciplinary team and initiate plan [...] adequate time for meals Collaborate with clinical concrete mason Collaborate with interdisciplinary team and initiate plan and interventions as ordered Utilize nutrition screening tool and intervene per policy Assist patient with eating Encourage patient to take dietary supplement as ordered Include patient/family/caregiver in decisions related to nutrition Problem: Discharge Barriers Goal: My discharge needs are met Outcome: Progressing documented in this encounter [facility] 12-05-2023 Note Formatting of this n ote might be different from the original. Patient Choice Patient Name: JAMES REYES Date of : 1955 All Providers Sent Referral Name: [facility] Phone: [phone] Address: [address] [place] [address] [facility] Phone: [phone] Address: [address] [place] [address] Name: [facility] Phone: [phone] Address: [address] [place] [address] [address] [place] [id number] [facility] 12-05-2023 Note Formatting of this n ote might be different from the original. Patient Choice Patient Name: JAMES REYES Date of : 1955 All Providers Sent Referral Name: [facility] Phone: [phone] Address: [address] [place] [address] Name: Milagro ALBARRAN Phone: [phone] Address: [address] [place] [address] Name: Juan Phone: [phone] Address: [address] [place] [address] [address] [place] [address] [facility] 12-05-2023 Note Formatting of this n ote might be different from the original. Discharge med list transmitted to [facility] via [facility] per TCC request. [facility] 12-05-2023 Note Formatting of this n ote might be different from the original. Discharge med list transmitted to [facility] via [facility] per TCC request. [facility] 12-05-2023 Note Formatting of this n ote might be different from the original. Level of Care returned. Notified RN, PRAFUL, and MD. Discharge order obtained. Uploaded PASRR and level of care to [facility] and sent to [facility]. Arranged for [facility] wheelchair ambulance for transport thru [employer] for filler picker at 2 PM. Notified RN, PRAFUL, pt's brother, Sreekanth, facility, and unit assistant of discharge time. [facility] 12-05-2023 Note Formatting of this n ote might be different from the original. Level of Care returned. Notified RN, PRAFUL, and MD. Discharge order obtained. Uploaded PASRR and level of care to [facility] and sent to [facility]. [facility] [employer] for filler picker at 2 PM. Notified RN, TCC, pt's brother, Sreekanth, facility, and unit assistant of discharge time. [facility] 12-05-2023 Note Formatting of this n ote might be different from the original. Level of Care is back. Plan is discharge to [facility]. Once discharge is written. will set up transportation. Software Test Specialist will copy AVS. Bedside Nurse will call report to [phone]. I will task HOME HEALTH SCHEDULER to transmit MAR to [facility]. [facility] 12-05-2023 Note Formatting of this n ote might be different from the original. Level of Care is back. Plan is discharge to [facility]. Once discharge is written. will set up transportation. Winfred will copy AVS. Bedside Nurse will call report to [phone]. I will task HOME HEALTH SCHEDULER to transmit MAR to [facility]. [facility] 12-05-2023 Nurse Note Patient is making inappropriate comments to nursing staff, after having a male nurse assigned he requested a new female nurse because he was not "pretty". Patient was reminded that this is a professional environment and this behavior is not appropriate. T [facility] 12-05-2023 Note Formatting of this n ote might be different from the original. coverage for today. CRUZ completed, printed, and sent to [facility] [place] along with additional clinical information to start Level of Care. PASRR completed by SHALONDA Smith. Await return of Level of Care. [facility] 12-05-2023 Note Formatting of this n ote might be different from the original. coverage for today. CRUZ completed, printed, and sent to [facility] [place] along with additional clinical information to start Level of Care. PASRR completed by SHALONDA Smith. Await return of Level of Care. T [facility] 12-05-2023 Note Formatting of this n ote is different from the original. Images from the original note were not included. Care Management Progress Note [facility] willing to accept. Will need CRUZ completed for to get Level of care. Message in secure chat for bedside Nurse to complete. Once Level of Care is received facility can accept patient. Discharge Milestones and Delays Expected date/time: 12/06/[address] discharge order Complete med reconciliation Case mgmt discharge readiness Clinical Stability Diagnostic Workup Animal Rehabilitator Recommendations Imaging Results PT discharge readiness OT discharge readiness ATHLETIC TURF WORKER discharge readiness Patient Education Complete Expected Discharge History Expected Date/Time Set By Reviewed At 12/06/2023 Jennifer Salazar RN 12/05/2023 7:38 AM 12/05/2023 Jennifer Salazar RN 12/04/2023 9:11 AM 12/04/2023 Jennifer Salazar RN 12/01/2023 9:23 AM 12/01/2023 Sergio Ruff DO 11/30/2023 12:41 AM 12/01/2023 Sergio Ruff DO 11/29/2023 10:14 PM Length of Stay (Days): 6 GMLOS: No GMLOS Documented [facility] 12-05-2023 Note Formatting of this n ote [...] mgmt discharge readiness Clinical Stability Diagnostic Workup Animal Rehabilitator Recommendations Imaging Results PT discharge readiness OT discharge readiness ATHLETIC TURF WORKER discharge readiness Patient Education Complete Expected Discharge History Expected Date/Time Set By Reviewed At 12/06/2023 Jennifer Salazar RN 12/05/2023 7:38 AM 12/05/2023 Jennifer Salazar RN 12/04/2023 9:11 AM 12/04/2023 Jennifer Salazar RN 12/01/2023 9:23 AM 12/01/2023 Sergio Ruff, DO 11/30/2023 12:41 AM 12/01/2023 Sergio Ruff, DO 11/29/2023 10:14 PM Length of Stay (Days): 6 GMLOS: No GMLOS Documented [facility] 12-05-2023 Plan of care note The patient is Moderately Stable - Low risk of patient condition declining or worsening The patient's goals for the shift include The clinical goals for the shift include Over the shift, the patient did not make progress toward the following goals. Barriers to progression include education . Recommendations to address these barriers include learning about diease process. [facility] 12-04-2023 Note Formatting of this n ote might be different from the original. Reviewed with TCC. Completed PAS in HENS, will submit for LOC once CRUZ completed. [facility] 12-04-2023 Note Formatting of this n ote might be different from the original. Reviewed with TCC. Completed PAS in HENS, will submit for LOC once CRUZ completed. [facility] 12-04-2023 Note Formatting of this n ote is different from the original. Images from the original note were not included. Care Management Progress Note [facility] willing to accept. Will need Level of care, Discharge Milestones and Delays Expected date/time: 12/05/[address] discharge order Complete med reconciliation Case mgmt discharge readiness Clinical Stability Diagnostic Workup Animal Rehabilitator Recommendations Imaging Results PT discharge readiness OT discharge readiness ATHLETIC TURF WORKER discharge readiness Patient Education Complete Expected Discharge History Expected Date/Time Set By Reviewed At 12/05/2023 Jennifer Salazar RN 12/04/2023 9:11 AM 12/04/2023 Jennifer Salazar RN 12/01/2023 9:23 AM 12/01/2023 Sergio Ruff, DO 11/30/2023 12:41 AM 12/01/2023 Sergio Ruff, DO 11/29/2023 10:14 PM Length of Stay (Days): 5 GMLOS: No GMLOS Documented T [facility] 12-04-2023 Note Formatting of this n ote is different from the original. Images from the original note were not included. Care Management Progress Note [facility] [place] willing to accept. Will need Level of care, Discharge Milestones and Delays Expected date/time: 12/05/[address] discharge order Complete med reconciliation Case mgmt discharge readiness Clinical Stability Diagnostic Workup Animal Rehabilitator Recommendations Imaging Results PT discharge readiness OT discharge readiness ATHLETIC TURF WORKER discharge readiness Patient Education Complete Expected Discharge History Expected Date/Time Set By Reviewed At 12/05/2023 Jenniefr Salazar RN 12/04/2023 9:11 AM 12/04/2023 Jennifer Salazar RN 12/01/2023 9:23 AM 12/01/2023 Sergio Ruff, DO 11/30/2023 12:41 AM 12/01/2023 Sergio Ruff, DO 11/29/2023 10:14 PM Length of Stay (Days): 5 GMLOS: No GMLOS Documented [facility] 12-04-2023 Nurse Note Wound Care consulted for Pressure Injury Prevention. Pt's Yang= 20, pt is no longer at risk. Skin Care Precaution order set in place. PT/OT consults in place. Dietitian consult in place. Will continue to follow peripherally. Please voicera or secure chat message with any questions. Liz Keane RN, [facility] 12-01-2023 Note Formatting of this n ote might be different from the original. Referral placed to [facility] via [facility] per TCC request. Await review and response regarding ability to accept. TCC notified. [facility] 12-01-2023 Note Formatting of this n ote might be different from the original. Referral placed to [facility] via [facility] per TCC request. Await review and response regarding ability to accept. TCC notified. [facility] 12-01-2023 Note [facility] per TCC request. Await review and response regarding ability to accept. TCC notified. [facility] 12-01-2023 Note Formatting of this n ote might be different from the original. Explained to patient his AL wanted him to go to skilled facility before returning home. Patient agreeable. I read facilities to patient. He made choices of ([facility] and [facility]. Referrals in [facility]port. Patient will need Level of Care. T [facility] 12-01-2023 Note Formatting of this n ote might be different from the original. Explained to patient his AL wanted him to go to skilled facility before returning home. Patient agreeable. I read facilities to patient. He made choices of ([facility]) [facility] and [facility]. Referrals in [facility]. Patient will need Level of Care. [facility] 12-01-2023 Note Formatting of this n ote [...] Salazar RN 12/01/2023 9:23 AM 12/01/2023 Sergio Newman Speedy, DO 11/30/2023 12:41 AM 12/01/2023 Sergio Newman Speedy, DO 11/29/2023 10:14 PM Length of Stay (Days): 2 GMLOS: No GMLOS Documented T [facility] 12-01-2023 Note Formatting of this n [...] Salazar RN 12/01/2023 9:23 AM 12/01/2023 Sergio Newman Speedy, DO 11/30/2023 12:41 AM 12/01/2023 Sergio Paty Speedy, DO 11/29/2023 10:14 PM Length of Stay (Days): 2 GMLOS: No GMLOS Documented [facility] 12-01-2023 Plan of care note The patient [...] My discharge needs are met Outcome: Progressing [facility] 11-30-2023 Note Problem: Potential f or Compromised Skin Integrity Goal: Skin Integrity is Maintained or Improved Outcome: Progressing Goal: Nutritional status is improving Outcome: Progressing Problem: Nutrition Goal: Nutritional status is improving Outcome: Progressing [facility] 11-30-2023 Plan of care note Problem: Potential for Compromised Skin Integrity Goal: Skin Integrity is Maintained or Improved Outcome: Progressing Goal: Nutritional status is improving Outcome: Progressing Problem: Nutrition Goal: Nutritional status is improving Outcome: Progressing [facility] 11-30-2023 Nurse Note Wound Care arrived to pt's room for Prevention consult, but pt not in room at present time. Will return as time permits. Please Voicera for any questions or concerns. Kaycee Ricardo RN [facility] 11-30-2023 Note Formatting of this n ote might be different from the original. Referral placed to [facility] [place] via [facility] per TCC request. Await review and response regarding ability to accept. TCC notified. [facility] 11-30-2023 Note Formatting of this n ote might be different from the original. Referral placed to [facility] [place] via [facility] per TCC request. Await review and response regarding ability to accept. TCC notified. [facility] 11-30-2023 Note Referral placed to [facility] [place] via [facility] per TCC request. Await review and response regarding ability to accept. TCC notified. [facility] 11-30-2023 Note Formatting of this n ote might be different from the original. Care Managment Initial Assessment Date: 11/30/2023 Patient Name: James Reyes : 1955 Patient Information Source of Information: Patient Cognition/Language: WFL - Within Functional Limits Permission given to speak with patient pharmaceutical representative/caregiver as indicated: No Confirmation of Payer with patient/family: Payer Name: Medicaid [place]: No Confirmation of Primary Care Physician: (Does not know) Primary Caregiver: Self If assistance needed, confirmed caregiver ready, willing and able to care for patient at discharge: Yes Confirmed with: Living Arrangements Current Residence: Number of Floors Number of Entry Steps: Bed/Bath Levels: Facility: Assisted Living Facility Name: [facility] Plan to Return: Yes Lives with: Alone Support Systems: Comments (Other) (assisted living staff) Activities of Daily Living Ambulation: Independent (With rollator) Bathing/Dressing: Independent Elimination/Continence/Toileting: Independent Feeding: Independent Who Assists with Activities of Daily Living: Instrumental Activities of Daily Living Prescription Coverage: Yes Pharmacy Used: [facility] Medication Management: Transportation/Shopping: Transportation Mode: [...] for: Additional Information: [place] per patient. From [facility]. Per [facility]. DON-Patient will need to be at his baseline to return to [place]. Will continue to follow for therapy recommendation. Jennifer Salazar RN [facility] 11-30-2023 Note Formatting of this n ote might be different from the original. Care Managment Initial Assessment Date: 11/30/2023 Patient Name: James Reyes : 1955 Patient Information Source of Information: Patient Cognition/Language: WFL - Within Functional Limits Permission given to speak with patient pharmaceutical representative/caregiver as indicated: No Confirmation of Payer with patient/family: Payer Name: Medicaid [place]: No Confirmation of Primary Care Physician: (Does not know) Primary Caregiver: Self If assistance needed, confirmed caregiver ready, willing and able to care for patient at discharge: Yes Confirmed with: Living Arrangements Current Residence: Number of Floors Number of Entry Steps: Bed/Bath Levels: Facility: Assisted Living Facility Name: [facility] Plan to Return: Yes Lives with: Alone Support Systems: Comments (Other) (assisted living staff) Activities of Daily Living Ambulation: Independent (With rollator) Bathing/Dressing: Independent Elimination/Continence/Toileting: Independent Feeding: Independent Who Assists with Activities of Daily Living: Instrumental Activities of Daily Living Prescription Coverage: Yes Pharmacy Used: [facility] Medication Management: Transportation/Shopping: Transportation Mode: [...] for: Additional Information: [place] per patient. From [facility]. Per [facility]. DON-Patient will need to be at his baseline to return to [place]. Will continue to follow for therapy recommendation. Jennifer Salazar RN [facility] 11-30-2023 Note Formatting of this n ote might be different from the original. Spoke to [facility] LUKAS Pt follows with PCP Dr.Richard Rodriguez with [facility] [phone] [facility] 11-30-2023 Note Formatting of this n ote might be different from the original. Spoke to [facility] Pt follows with PCP Dr.Richard Rodriguez with [facility] [phone] [facility] 11-30-2023 Nurse Note Krissy from [facility] called and states "James needs to return to baseline before he can return to us, he is usually independent with ADL's and walks safely with his rollator." Krissy's direct line [phone]. [facility] 11-30-2023 Consult note Associated Order (s): IP CONSULT TO NEUROLOGY INITIAL CONSULT NOTE. STROKE SERVICE Patient Name: James Reyes Patient : 1955 Acct: [id number] Date of Admission: 11/29/2023 [facility] PCP: No primary care provider on [...] Acute kidney injury (HCC) 09/11/2015 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 08/08/2017 COPD (chronic obstructive pulmonary disease) ([facility]) Developmental disorder Diabetes mellitus ([facility]) Esophageal reflux Gastritis see EGD on 03/29/2016 GERD (gastroesophageal reflux disease) Hyperlipidemia IBS (irritable bowel syndrome) Mixed Obesity Osteoarthritis Pain management Plantar fasciitis, bilateral Unspecified sleep apnea Urinary retention Past Surgical History: Past Surgical History: Procedure Laterality Date CHOLECYSTECTOMY 03/29/20162010 COLONOSCOPY 05/23/2017 COLONOSCOPY 03/29/2016, repeat in 10 years, Dr. Ness, normal except internal hemorrhoid COLONOSCOPY N/A 07/18/2022 Performed by David Chen MD at [facility] OR CORONARY ARTERY BYPASS GRAFT FOOT [...] 6 hours as needed. 07/28/21 Historical Provider, Adv Diskus 250-50 MCG/ACT aerosol powder 01/21/23 Historical Provider, albuterol (2.5 MG/3ML) 0.083% nebulizer solution Inhale 2.5 mg. 07/28/21 Historical ProviderMD albuterol 108 (90 Base) MCG/ACT inhaler Inhale 2 puffs every 6 hours as needed. 11/24/16 Historical ProviderMD aspirin 81 MG chewable tablet Chew 81 mg in the morning. 08/26/21 Historical ProviderMD atorvastatin (Lipitor) 80 MG tablet Take 80 mg by mouth in the morning. 07/29/21 Historical ProviderMD carvedilol (Coreg) 6.25 MG tablet Take 1 tablet (6.25 mg) by mouth in the morning and 1 tablet (6.25 mg) in the evening. Take with meals. 02/22/23 Shannan Corcoran MD cholestyramine (Questran) 4 g packet [...] Historical Provider, ergocalciferol (Vitamin D-2) 1.25 MG (58460 UT) capsule Take 1.25 mg by mouth [...] nystatin (Mycostatin) cream 11/08/22 Historical Provider, pancrelipase, Cjm-Zadr-Henq, (Creon) 35789-21021 units capsule Take by mouth 3 times [...] 5 mg, 5 mg, Oral, Daily, Lorenza Bowels MD fluticasone (Flonase) nasal spray 1 spray, 1 spray, Each Nostril, Daily, Lorenza Bowles MD glucagon (human recombinant) injection 1 mg, 1 mg, IntraMUSCular, PRN, Lorenza Bowles MD glucose oral gel 15 g, 15 g, Oral, PRN, Lorenza Bowles MD insulin glargine (Lantus) injection 48 Units, 48 Units, SubCUTAneous, Daily, Lorenza Bowles MD Insulin Lispro (Humalog) injection 16 Units, 16 Units, SubCUTAneous, TID , Lorenza Bowles MD labetalol (Normodyne,Trandate) injection 10 mg, 10 mg, IntraVENous, q10 min PRN, Lorenza Bowles MD mometasone-formoterol (Dulera 200) 200-5 MCG/ACT inhaler 2 puff, 2 puff, Inhalation, BID, Lorenza Bowles MD ondansetron ODT (Zofran-ODT) disintegrating tablet 4 mg, 4 mg, Oral, q8h PRN OR ondansetron (Zofran) injection 4 mg, 4 mg, IntraVENous, q6h PRN, Lorenza Bowles MD pancrelipase (Oxx-Xzaa-Bijx) (Creon) 6000-79993 units per capsule 2 capsule, 2 capsule, [...] 457 ms QTC Interval 439 ms P Clare[place] 13 degrees QRS Clare[place] -44 degrees T Wave [place] 122 degrees [place] Interval 230 ms POCT glucose meter Collection [...] -HTN under control with Coreg -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 Dizziness secondary to mechanical fall -CT [...] to be involved in this patient's care. [facility] 11-30-2023 Consult note Associated Order (s): IP CONSULT TO NEUROLOGY INITIAL CONSULT NOTE. STROKE SERVICE Patient Name: James Reyes Patient : 1955 Acct: [id number] Date of Admission: 11/29/2023 [facility] PCP: No primary care provider on [...] Acute kidney injury (HCC) 09/11/2015 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 08/08/2017 COPD (chronic obstructive pulmonary disease) [...] 07/18/2022 Performed by David Chen MD at [facility] OR CORONARY ARTERY BYPASS GRAFT FOOT [...] in the evening. Take with meals. 02/22/23 Otkillian Corcoran MD cholestyramine (Questran) 4 [...] Historical ProviderMD ergocalciferol (Vitamin D-2) 1.25 MG (50732 UT) capsule Take 1.25 mg by mouth [...] nystatin (Mycostatin) cream 11/08/22 Historical Provider, pancrelipase, Coy-Kwhw-Cjwl, (Creon) 98819-87877 units capsule Take by mouth 3 times daily (with meals). Historical ProviderMD pregabalin (Lyrica) 150 MG capsule Take 150 [...] Nightly, Lorenza Bowles MD, 10 mg at 08/15/24 0200 famotidine (Pepcid) tablet 20 mg, 20 [...] IntraVENous, q6h PRN, Lorenza Bowles MD pancrelipase (Lyv-Ygoy-Ordu) (Creon) 6000-78187 units per capsule 2 capsule, 2 capsule, Oral, TID WC, Lorenza Bowles MD polyethylene glycol (PEG) 3350 (Miralax) packet 17 g, 17 g, Oral, Daily PRN, Lorenza Bowles MD pregabalin (Lyrica) capsule 150 mg, 150 mg, Oral, BID, Lorenza Bowles MD, 150 mg at 11/30/23 020 sodium chloride 0.9 % infusion, 50 mL/hr, IntraVENous, Continuous, Lorenza Bowles MD, Last Rate: 50 mL/hr at 11/30/23199, 50 mL/hr at 11/30/23 020 tamsulosin (Flomax) 24 hr capsule 0.4 mg, 0.4 mg, Oral, BID, Lorenza Bowles MD, 0.4 mg at 11/30/23 0633 tiotropium (Spiriva Respimat) 2.5 MCG/ACT inhaler 2 puff, 2 puff, Inhalation, Daily, Lorenza Bowles MD Continuous Infusions: sodium chloride, 50 mL/hr, Last Rate: 50 mL/hr (11/30/23199) Allergies: Penicillins and Tetracyclines & related Social [...] attack Mother 61.00 Heart disease Father Other ([id number]) Brother accident Coronary artery disease Father Diabetes [...] 457 ms QTC Interval 439 ms P Clare[place] 13 degrees QRS Claremont -44 degrees T Wave [place] 122 degrees [place] Interval 230 ms POCT glucose meter Collection [...] -HTN under control with Coreg -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 Dizziness secondary to mechanical fall -CT [...] this patient's care. documented in this encounter [facility] 11-30-2023 Plan of care note The patient is Moderately Stable - Low risk of patient condition declining or worsening The patient's goals for the shift include adequate rest The clinical goals for the shift include absence of neurological defecits Problem: Knowledge Deficit Goal: Patient/family/caregiver demonstrates understanding of disease process, treatment plan, medications, and discharge instructions Outcome: Progressing Flowsheets (Taken 11/30/2023 0509) Patient/family/caregiver demonstrates understanding of disease process, treatment plan, medications, and discharge instructions: Complete learning assessment and assess knowledge base Provide teaching at level of understanding Provide teaching via preferred learning methods Problem: Potential for Compromised Skin Integrity Goal: Skin Integrity is Maintained or Improved Outcome: Progressing Flowsheets (Taken 11/30/2023 0509) Skin integrity is maintained or improved: Assess [...] adequate time for meals Collaborate with clinical concrete mason Collaborate with interdisciplinary team and initiate plan [...] adequate time for meals Collaborate with clinical concrete mason Collaborate with interdisciplinary team and initiate plan and interventions as ordered Utilize nutrition screening tool and intervene per policy Assist patient with eating Encourage patient to take dietary supplement as ordered Include patient/family/caregiver in decisions related to nutrition Problem: Discharge Barriers Goal: My discharge needs are met Outcome: Progressing [facility] 11-30-2023 History and physical note Attending History and Physical Admit Date: 11/29/2023 PCP: No primary care provider on file. CHIEF COMPLAINT: Chief Complaint Patient presents with Fall Head Laceration HISTORY OF PRESENT ILLNESS: James is a 68 y.o. male with past medical history below who presents with chief complaint listed above. Pt was walking with his rollator on [place] to go get cigarettes. Pt lost his balance while walking and stumbled onto grass and fell backwards hitting his head. Denied loss of consciousness, vision changes, slurred speech, weakness/numbness in extremity, or nausea/vomiting. Will admit for further evaluation and management. Past Medical History: Past Medical History: Diagnosis Date Acute kidney injury (HCC) 09/11/2015 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 08/08/2017 COPD (chronic obstructive pulmonary disease) [...] attack Mother 61.00 Heart disease Father Other ([id number]) Brother accident Coronary artery disease Father Diabetes [...] mouth daily. ergocalciferol (Vitamin D-2) 1.25 MG (48502 UT) capsule Take 1.25 mg by mouth [...] for chest pain. nystatin (Mycostatin) cream pancrelipase, Nyk-Yahu-Tbfx, (Creon) 55952-15897 units capsule Take by mouth 3 times [...] S2+, no m/r/g Abdomen: soft, nontender, BS+ FISH BAIT PROCESSING SUPERVISOR: Awake and alert, motor and sensory grossly [...] Acute kidney injury (HCC) 09/11/2015 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 08/08/2017 COPD (chronic obstructive pulmonary disease) [...] Contact Information Primary Emergency Contact: Sreekanth Reyes [place] Relation: Sibling ADVANCED CARE PLANNING James Reyes : 1955 Primary Care Physician: No primary care provider on file. The patient and/or family/surrogate voluntarily agreed to participate in ACP services. Patient s cognitive capacity: yes Code Status: [x] [FULL CODE - Continue all advanced life support: CPR,intubation,invasive procedures] [_] [DNR-CCA - DO NOT do CPR, intubation] [_] [DNR-MARINE ENGINE MECHANIC - Comfort care only] [_] DNR form [...] Lorenza Bowles MD Division of Hospitalist Medicine [facility] [employer] Work Phone: 11-30-2023 Note [employer] [facility] 11-30-2023 History and physical note Attending History and Physical Admit Date: 11/29/2023 PCP: No primary care provider on file. CHIEF COMPLAINT: Chief Complaint Patient presents with Fall Head Laceration HISTORY OF PRESENT ILLNESS: James is a 68 y.o. male with past medical history below who presents with chief complaint listed above. Pt was walking with his rollator on [place] to go get cigarettes. Pt lost his balance while walking and stumbled onto grass and fell backwards hitting his head. Denied loss of consciousness, vision changes, slurred speech, weakness/numbness in extremity, or nausea/vomiting. Will admit for further evaluation and management. Past Medical History: Past Medical History: Diagnosis Date Acute kidney injury (HCC) 09/11/2015 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 08/08/2017 COPD (chronic obstructive pulmonary disease) [...] 07/18/2022 Performed by David Chen MD at [facility] OR CORONARY ARTERY BYPASS GRAFT FOOT [...] attack Mother 61.00 Heart disease Father Other ([id number]) Brother accident Coronary artery disease Father Diabetes [...] mouth daily. ergocalciferol (Vitamin D-2) 1.25 MG (48628 UT) capsule Take 1.25 mg by mouth [...] for chest pain. nystatin (Mycostatin) cream pancrelipase, Yzm-Nrjl-Ijlt, (Creon) 65003-20323 units capsule Take by mouth 3 times [...] S2+, no m/r/g Abdomen: soft, nontender, BS+ FISH BAIT PROCESSING SUPERVISOR: Awake and alert, motor and sensory grossly [...] Acute kidney injury (HCC) 09/11/2015 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 08/08/2017 COPD (chronic obstructive pulmonary disease) [...] Contact Information Primary Emergency Contact: Sreekanth Reyes [place] Relation: Sibling ADVANCED CARE PLANNING James Reyes : 1955 Primary Care Physician: No primary care provider on file. The patient and/or family/surrogate voluntarily agreed to participate in ACP services. Patient s cognitive capacity: yes Code Status: [x] [FULL CODE - Continue all advanced life support: CPR,intubation,invasive procedures] [_] [DNR-CCA - DO NOT do CPR, intubation] [_] [DNR-MARINE ENGINE MECHANIC - Comfort care only] [_] DNR form [...] Lorenza Bowles MD Division of Hospitalist Medicine [facility] documented in this encounter [facility] 11-29-2023 Emergency department Note Spoke to sister in [place], and advised that patient is being admitted to [facility] and EMS is on scene for transport Amelia Lopez RN 11/29/23 3092 [facility] 11-29-2023 Emergency department Note Spoke to sister in , [place], and advised that patient is being admitted to [facility] and EMS is on scene for transport Amelia Lopez RN 11/29/23 7658 Report to [facility] ambulance crew. Chart to crew for [facility]. Minda Quesada RN 11/29/23 0749 Report called to 4W Amelia ROACH @ [facility] Minda Quesada RN 11/29/23 8351 Pt's sister in [place], called to ask about pt. Ok to speak to her per pt. Advised about the fall earlier and now having dizziness. She will call back later to check about the results. [phone] Minda Quesada RN 11/29/232051 Pt virtualization consultant light and states now he is feeling dizzy and lightheaded. Dr. Ruff notified Minda Quesada RN 11/29/231946 Pt assisted to stand. Dr wants pt to ambulate with his rollator. Upon standing, pt incontinent of urine. Pt changed out of jeans and underwear. Pt stated to throw his wet clothing away. Pt given pajama bottoms. Pt able to correspondence coordinator room and feels comfortable going home. Minda [...] Acute kidney injury (HCC) 09/11/2015 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 08/08/2017 COPD (chronic obstructive pulmonary disease) [...] 07/18/2022 Performed by David Chen MD at [facility] OR CORONARY ARTERY BYPASS GRAFT FOOT [...] mouth daily. ergocalciferol (Vitamin D-2) 1.25 MG (05713 UT) capsule Take 1.25 mg by mouth [...] for chest pain. nystatin (Mycostatin) cream pancrelipase, Rtc-Epec-Bdxm, (Creon) 88557-66245 units capsule Take by mouth 3 times [...] attack Mother 61.00 Heart disease Father Other ([id number]) Brother accident Coronary artery disease Father Diabetes [...] arteries: There is origin of the right CLAIMS TECHNICIAN. Otherwise, unremarkable. Anterior communicating artery: Unremarkable. Posterior communicating arteries: Robustness of the right posterior communicating artery is present, in keeping with origin of the right CLAIMS TECHNICIAN. Otherwise, unremarkable. Aneurysm or vascular malformation: None [...] arteries: There is origin of the right CLAIMS TECHNICIAN. Otherwise, unremarkable. Anterior communicating artery: Unremarkable. Posterior communicating arteries: Robustness of the right posterior communicating artery is present, in keeping with origin of the right CLAIMS TECHNICIAN. Otherwise, unremarkable. Aneurysm or vascular malformation: None [...] arteries: There is origin of the right CLAIMS TECHNICIAN. Otherwise, unremarkable. Anterior communicating artery: Unremarkable. Posterior communicating arteries: Robustness of the right posterior communicating artery is present, in keeping with origin of the right CLAIMS TECHNICIAN. Otherwise, unremarkable. Aneurysm or vascular malformation: None [...] equal to 30 ng/mL Test performed by [employer]etitive Immunoassay, measuring Total Vitamin D, not [...] Abnormal Glucose 101 (*) Narrative: Performed by: [facility], [address] [place] [address] CLIA ID: [id number] POCT GLUCOSE METER UNSOLICITED RESULTS - Abnormal Glucose 139 (*) Narrative: Performed by: [facility], [address] [place] [address] CLIA ID: [id number] POCT GLUCOSE METER UNSOLICITED RESULTS - Abnormal Glucose 124 (*) Narrative: Performed by: [facility], [address] [place] [address] CLIA ID: [id number] POCT GLUCOSE METER UNSOLICITED RESULTS - Abnormal Glucose 139 (*) Narrative: Performed by: [facility], [address] [place] [address] CLIA ID: [id number] POCT GLUCOSE METER UNSOLICITED RESULTS - Abnormal Glucose 200 (*) Narrative: Performed by: [facility], [address] [place] [address] CLIA ID: [id number] POCT GLUCOSE METER UNSOLICITED RESULTS - Abnormal Glucose 124 (*) Narrative: Performed by: [facility], [address] [place] [address] CLIA ID: [id number] POCT GLUCOSE METER UNSOLICITED RESULTS - Abnormal Glucose 156 (*) Narrative: Performed by: [facility], [address] [place] [address] CLIA ID: [id number] POCT GLUCOSE METER UNSOLICITED RESULTS - Abnormal Glucose 276 (*) Narrative: Performed by: [facility], [address] [place] [address] CLIA ID: [id number] POCT GLUCOSE METER UNSOLICITED RESULTS - Abnormal Glucose 156 (*) Narrative: Performed by: [facility], [address] [place] [address] CLIA ID: [id number] POCT GLUCOSE METER UNSOLICITED RESULTS - Abnormal Glucose 207 (*) Narrative: Performed by: [facility], [address] [place] [address] CLIA ID: [id number] POCT GLUCOSE METER UNSOLICITED RESULTS - Abnormal Glucose 142 (*) Narrative: Performed by: [facility], [address] [place] [address] CLIA ID: [id number] POCT GLUCOSE METER UNSOLICITED RESULTS - Abnormal Glucose 259 (*) Narrative: Performed by: [facility], [address] [place] [address] CLIA ID: [id number] POCT GLUCOSE METER UNSOLICITED RESULTS - Abnormal Glucose 119 (*) Narrative: Performed by: [facility], [address] [place] [address] CLIA ID: [id number] PROTHROMBIN TIME - Normal PROTHROMBIN TIME 10.9 [...] - Normal Glucose 84 Narrative: Performed by: [facility], [address] [address] CLIA ID: [id number] POCT GLUCOSE METER UNSOLICITED RESULTS - Normal Glucose 74 Narrative: Performed by: [facility], [address] [place] [address] CLIA ID: [id number] COMPREHENSIVE METABOLIC PANEL WITH MG REFLEX Narrative: The following orders were created for panel order Comprehensive Metabolic Panel w/ Mg Reflex. Procedure Abnormality Status --------- ------ Comprehensive metabolic ...[[id number]] Abnormal Final result Please view results for these tests on the individual orders. COMPREHENSIVE METABOLIC PANEL WITH MG REFLEX Narrative: The following orders were created for panel order Comprehensive Metabolic Panel with Mg Reflex. Procedure Abnormality Status --------- ------ Comprehensive metabolic ...[[id number]] Abnormal Final result Please view results for these tests on the individual orders. COMPREHENSIVE METABOLIC PANEL WITH MG REFLEX Narrative: The following orders were created for panel order Comprehensive Metabolic Panel with Mg Reflex. Procedure Abnormality Status --------- ------ Comprehensive metabolic ...[[id number]] Abnormal Final result Please view results for these tests on the individual orders. COMPREHENSIVE METABOLIC PANEL WITH MG REFLEX Narrative: The following orders were created for panel order Comprehensive Metabolic Panel with Mg Reflex. Procedure Abnormality Status --------- ------ Comprehensive metabolic ...[[id number]] Abnormal Final result Please view results for [...] 51 (!) 48 50 52 Resp: 22 18 Temp: 36.2 C (97.2 F) 36 [...] packet 4 g (4 g Oral Given 12/03/2344) cilostazol (Pletal) tablet 50 mg (50 mg Oral Given 12/03/2345) dicyclomine (Bentyl) capsule 10 mg (10 mg Oral Given 12/03/23 0844) ezetimibe (Zetia) tablet 10 mg (10 mg Oral Given 12/02/23 2307) famotidine (Pepcid) tablet 20 mg (20 mg Oral Given 12/03/23 0844) finasteride (Proscar) tablet 5 mg (5 mg Oral Given 12/03/23 0845) fluticasone (Flonase) nasal spray 1 spray (1 spray Each Nostril Not Given 12/03/23 0900) insulin glargine (Lantus) injection 48 Units (48 Units SubCUTAneous Given 12/02/23 2306) Insulin Lispro (Humalog) injection 16 Units (16 Units SubCUTAneous Given 12/03/23 0845) pancrelipase (Yyp-Oojl-Daoo) (Creon) 6000-13966 units per capsule 2 capsule (2 capsules [...] admitted for further evaluation and treatment. SCREENINGS [place] Coma Scale Best Eye Response: Spontaneous Best Verbal Response: Oriented Best Motor Response: Follows commands [place] Coma Scale Score: 15 NIH Stroke Scale [...] Motor - Right Leg: Some Effort Against [place] (pt reports pain being why he is [...] 457 ms QTC Interval 439 ms P [place] 13 degrees QRS [place] -44 degrees T Wave [place] 122 degrees [place] Interval [address] cervical spine wo [...] call and speak with the hospitalist at [facility], Dr. Bowles who agreed accept patient [...] (has no administration in time range) pancrelipase (Yff-Twnd-Cgij) (Creon) 6000-89547 units per capsule 2 capsule (has no [...] Ruff DO 11/30/23 0435 Pt arrives via [facility] after a fall. Pt lives at [facility]. Pt was walking with his rollator on [facility] to go get cigarettes. Pt lost his balance while walking and stumbled onto grass and fell backwards hitting his head. No loss of consciousness per bystanders. Pt has chronic pain in back and legs. Pt arrives with c collar in place. Alert and oriented x 4. Skin warm and dry. Respirations even and unlabored. Call light in reach. documented in this encounter [facility] 11-29-2023 Emergency department Note Report to [facility] ambulance crew. Chart to crew for [facility]. Minda Quesada RN 11/29/23 8685 [facility] 11-29-2023 Emergency department Note Report called to 4W Amelia ROACH @ [facility] Minda Quesada RN 11/29/23 4889 [facility] 11-29-2023 Emergency department Note Pt's sister in law, Niru, called to ask about pt. Ok to speak to her per pt. Advised about the fall earlier and now having dizziness. She will call back later to check about the results. [phone] Minda Quesada RN 11/29/232051 [facility] 11-29-2023 Emergency department Note Pt virtualization consultant light and states now he is feeling dizzy and lightheaded. Dr. Ruff notified Minda Quesada RN 11/29/231946 [facility] 11-29-2023 Emergency department Note Pt assisted to stand. Dr wants pt to ambulate with his rollator. Upon standing, pt incontinent of urine. Pt changed out of jeans and underwear. Pt stated to throw his wet clothing away. Pt given pajama bottoms. Pt able to correspondence coordinator room and feels comfortable going home. Minda Quesada RN 11/29/231940 [facility] 11-29-2023 Hospital Discharge instructions Amelia Faria RN - 11/29/2023 7:09 PM EDT Duyf-fmp-whquyyz and home medications as needed for pain. [...] and the need for follow-up with a physician/SYSTEM OPERATION SUPERINTENDENT/PA after discharge. Amelia Faria RN on 11/30/23 [...] Unit/Room#: W4-436/W4-436 A Discharging Unit Phone Number: [phone] Emergency Contact: Extended Emergency Contact Information Primary Emergency Contact: Sreekanth Reyes Relation: Sibling Past Surgical History: Past Surgical History: Procedure Laterality Date CHOLECYSTECTOMY 03/29/20162010 COLONOSCOPY 05/23/2017 COLONOSCOPY 03/29/2016, repeat in 10 years, Dr. Ness, normal except internal hemorrhoid COLONOSCOPY N/A 07/18/2022 Performed by David Chen MD at [facility] OR CORONARY ARTERY BYPASS GRAFT FOOT [...] current use of insulin (HCC) 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 Uncontrolled type 2 diabetes mellitus with complication, with long-term current use of insulin Pseudomonas aeruginosa infection Angina at rest (HCC) Sternal wound dehiscence manager long term care (current) use of antibiotics Enlarged prostate with lower urinary tract symptoms (LUTS) Hypertensive heart disease Overview Signed 01/27/2022 12:43 PM by Interface, Incoming Problems- Carepath Conversion [facility] 55% EF SHOWS HYPERTENSIVE HEART DISEASE COPD (chronic obstructive pulmonary disease) ([facility]) Overview Signed 01/27/2022 12:43 PM by Interface, [...] Minimal assistance Toileting Minimal assistance Feeding Independent Sports Team Manager Minimal assistance Med Delivery no Wound Care [...] Date: 11/29/23 Discharging to Facility/ Agency Name: [facility] Address: [address] [place] [address] Dialysis Facility (if applicable) Name: Address: Dialysis Schedule: Phone: Fax: [place] Measurer/Perishable Freight Inspector signature: ICIAN SECTION Name: James Reyes Prognosis: fair Condition at Discharge: stable Rehab Potential (if transferring to Rehab): fair Recommended Labs or Other Treatments After Discharge: CBC and BMP every 3 days The individual is being admitted to a nursing facility directly from an [facility] or a unit of a [facility] [place] that is not operated by or licensed by [facility] under section 5119.14 or 5160-3-15.1 5 The individual requires the level of services provided by a nursing facility for the condition for which he or she was treated in the hospital and, Physician Certification: I certify the above information and transfer of James Reyes is necessary for the continuing treatment of the diagnosis listed and that he requires longterm facility for less than 30 days. Update Admission H&P: No change in H&P PHYSICIAN SIGNATURE: The following attachments cannot be sent through Care Everywhere.Concussion Discharge Instructions, Adult (Barbadian)Quitting Smoking (Barbadian)documented in this encounter [facility] 11-29-2023 Emergency department Note Pt assisted using urinal, but unable to urinate at this time. Pt asking for vaccuum mattress to be removed. Dr. Arreola assisted in rolling pt and removing mattress. Pt complains of chronic pain in legs and back, but no new pain. Minda Quesada RN 11/29/23 1706 [facility] 11-29-2023 Emergency department Note Pt'd continous glucose monitor is going off. Reading 69. Finger stick glucose 84 on arrival. Minda Quesada RN 11/29/23 1611 [facility] 11-29-2023 Emergency department Triage note Pt arrives via [facility] after a fall. Pt lives at [facility]. Pt was walking with his rollator on [facility] to go get cigarettes. Pt lost his balance while walking and stumbled onto grass and fell backwards hitting his head. No loss of consciousness per bystanders. Pt has chronic pain in back and legs. Pt arrives with c collar in place. Alert and oriented x 4. Skin warm and dry. Respirations even and unlabored. Call light in reach. [facility] 11-29-2023 Physician Emergency department Note EMERGENCY [...] Acute kidney injury (HCC) 09/11/2015 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 08/08/2017 COPD (chronic obstructive pulmonary disease) ([facility]) Developmental disorder Diabetes mellitus (HCC) Esophageal reflux [...] mouth daily. ergocalciferol (Vitamin D-2) 1.25 MG (96488 UT) capsule Take 1.25 mg by mouth [...] for chest pain. nystatin (Mycostatin) cream pancrelipase, Mfe-Nmuo-Dvmr, (Creon) 19378-95593 units capsule Take by mouth 3 times [...] attack Mother 61.00 Heart disease Father Other ([id number]) Brother accident Coronary artery disease Father Diabetes [...] arteries: There is origin of the right CLAIMS TECHNICIAN. Otherwise, unremarkable. Anterior communicating artery: Unremarkable. Posterior communicating arteries: Robustness of the right posterior communicating artery is present, in keeping with origin of the right CLAIMS TECHNICIAN. Otherwise, unremarkable. Aneurysm or vascular malformation: None [...] arteries: There is origin of the right CLAIMS TECHNICIAN. Otherwise, unremarkable. Anterior communicating artery: Unremarkable. Posterior communicating arteries: Robustness of the right posterior communicating artery is present, in keeping with origin of the right CLAIMS TECHNICIAN. Otherwise, unremarkable. Aneurysm or vascular malformation: None [...] arteries: There is origin of the right CLAIMS TECHNICIAN. Otherwise, unremarkable. Anterior communicating artery: Unremarkable. Posterior communicating arteries: Robustness of the right posterior communicating artery is present, in keeping with origin of the right CLAIMS TECHNICIAN. Otherwise, unremarkable. Aneurysm or vascular malformation: None [...] equal to 30 ng/mL Test performed by [employer] Competitive Immunoassay, measuring Total Vitamin D, not [...] Abnormal Glucose 101 (*) Narrative: Performed by: [facility], [address] [place] [address] CLIA ID: [id number] POCT GLUCOSE METER UNSOLICITED RESULTS - Abnormal Glucose 139 (*) Narrative: Performed by: [facility], [address] [place] [address] CLIA ID: [id number] POCT GLUCOSE METER UNSOLICITED RESULTS - Abnormal Glucose 124 (*) Narrative: Performed by: [facility], [address] [place] [address] CLIA ID: [id number] POCT GLUCOSE METER UNSOLICITED RESULTS - Abnormal Glucose 139 (*) Narrative: Performed by: [facility], [address] [place] [address] CLIA ID: [id number] POCT GLUCOSE METER UNSOLICITED RESULTS - Abnormal Glucose 200 (*) Narrative: Performed by: [facility], [address] [place] [address] CLIA ID: [id number] POCT GLUCOSE METER UNSOLICITED RESULTS - Abnormal Glucose 124 (*) Narrative: Performed by: [facility], [address] [place] [address] CLIA ID: [id number] POCT GLUCOSE METER UNSOLICITED RESULTS - Abnormal Glucose 156 (*) Narrative: Performed by: [facility], [address] [place] [address] CLIA ID: [id number] POCT GLUCOSE METER UNSOLICITED RESULTS - Abnormal Glucose 276 (*) Narrative: Performed by: [facility], [address] [place] [address] CLIA ID: [id number] POCT GLUCOSE METER UNSOLICITED RESULTS - Abnormal Glucose 156 (*) Narrative: Performed by: [facility], [address] [place] [address] CLIA ID: [id number] POCT GLUCOSE METER UNSOLICITED RESULTS - Abnormal Glucose 207 (*) Narrative: Performed by: [facility], [address] [place] [address] CLIA ID: [id number] POCT GLUCOSE METER UNSOLICITED RESULTS - Abnormal Glucose 142 (*) Narrative: Performed by: [facility], [address] [place] [address] CLIA ID: [id number] POCT GLUCOSE METER UNSOLICITED RESULTS - Abnormal Glucose 259 (*) Narrative: Performed by: [facility], [address] [place] [address] CLIA ID: [id number] POCT GLUCOSE METER UNSOLICITED RESULTS - Abnormal Glucose 119 (*) Narrative: Performed by: [facility], [address] [place] [address] CLIA ID: [id number] PROTHROMBIN TIME - Normal PROTHROMBIN TIME 10.9 [...] - Normal Glucose 84 Narrative: [facility]formed by: [facility], [address] [place], [place] [id number] CLIA ID: [id number] POCT GLUCOSE METER UNSOLICITED RESULTS - Normal Glucose 74 Narrative: Performed by: [facility], [address] [place] [address] CLIA ID: [id number] COMPREHENSIVE METABOLIC PANEL WITH MG REFLEX Narrative: The following orders were created for panel order Comprehensive Metabolic Panel w/ Mg Reflex. Procedure Abnormality Status --------- ------ Comprehensive metabolic ...[[id number]] Abnormal Final result Please view results for these tests on the individual orders. COMPREHENSIVE METABOLIC PANEL WITH MG REFLEX Narrative: The following orders were created for panel order Comprehensive Metabolic Panel with Mg Reflex. Procedure Abnormality Status --------- ------ Comprehensive metabolic ...[[id number]] Abnormal Final result Please view results for these tests on the individual orders. COMPREHENSIVE METABOLIC PANEL WITH MG REFLEX Narrative: The following orders were created for panel order Comprehensive Metabolic Panel with Mg Reflex. Procedure Abnormality Status --------- ------ Comprehensive metabolic ...[[id number]] Abnormal Final result Please view results for these tests on the individual orders. COMPREHENSIVE METABOLIC PANEL WITH MG REFLEX Narrative: The following orders were created for panel order Comprehensive Metabolic Panel with Mg Reflex. Procedure Abnormality Status --------- ------ Comprehensive metabolic ...[[id number]] Abnormal Final result Please view results for [...] tablet 6.25 mg (6.25 mg Oral Given 12/03/23 0845) cholestyramine (Questran) packet 4 g (4 g Oral Given 12/03/23 0844) cilostazol (Pletal) tablet 50 mg (50 mg Oral Given 12/03/23 0845) dicyclomine (Bentyl) capsule 10 mg (10 mg Oral Given 12/03/23 0844) ezetimibe (Zetia) tablet 10 mg (10 mg Oral Given 12/02/23 2307) famotidine (Pepcid) tablet 20 mg (20 mg Oral Given 12/03/23 0844) finasteride (Proscar) tablet 5 mg (5 mg Oral Given 12/03/23 0845) fluticasone (Flonase) nasal spray 1 spray (1 spray Each Nostril Not Given 12/03/23 0900) insulin glargine (Lantus) injection 48 Units (48 Units SubCUTAneous Given 12/02/23 2306) Insulin Lispro (Humalog) injection 16 Units (16 Units SubCUTAneous Given 12/03/23 0845) pancrelipase (Wdw-Nshi-Ebtj) (Creon) 6000-53991 units per capsule 2 capsule (2 capsules Oral Given 12/03/23843) pregabalin (Lyrica) capsule 150 mg (150 mg Oral Given 12/03/23843) tamsulosin (Flomax) 24 hr capsule 0.4 mg (0.4 mg Oral Given 12/03/23517) tiotropium (Spiriva Respimat) 2.5 MCG/ACT inhaler 2 puff (2 puffs Inhalation Given 12/03/23845) sodium chloride 0.9 % infusion (50 mL/hr IntraVENous Rate/Dose Verify 12/03/2342) acetaminophen (Tylenol) tablet 650 mg (650 mg Oral Given 12/01/23 1735) Or acetaminophen (Tylenol) suppository 650 mg ( Rectal See Alternative 12/01/23 173) ondansetron ODT (Zofran-ODT) disintegrating tablet 4 mg (has no administration in time range) Or ondansetron (Zofran) injection 4 mg (has no administration in time range) polyethylene glycol (PEG) 3350 (Miralax) packet 17 g (17 g Oral Given 12/03/2343) bisacodyl (Dulcolax) suppository 10 mg (has no administration in time range) labetalol (Normodyne,Trandate) injection 10 mg (has no administration in time range) enoxaparin (Lovenox) syringe 40 mg (40 mg SubCUTAneous Given 12/03/2345) glucose oral gel 15 g (has no administration in time range) dextrose 50 % solution 12.5 g (has no administration in time range) glucagon (human recombinant) injection 1 mg (has no administration in time range) dextrose 5 % infusion (has no administration in time range) methyl salicylate-menthol (Bengay) 10-15 % greaseless cream ( Apply externally Given 12/03/2346) oxyCODONE-acetaminophen (Percocet) 5-325 MG per tablet 1 tablet (1 tablet Oral Given 12/03/23517) naloxone (Narcan) injection 0.4 mg (has no [...] admitted for further evaluation and treatment. SCREENINGS [place] Coma Scale Best Eye Response: Spontaneous Best [...] Motor - Right Leg: Some Effort Against Stoddard (pt reports pain being why he is [...] Medicine Provider Gulshan Arreola DO 12/03/23 1132 [facility] 11-29-2023 Physician Emergency department Note Emergency [...] 457 ms QTC Interval 439 ms P [place] 13 degrees QRS [place] -44 degrees T Wave [place] 122 degrees [place] Interval [address] cervical spine wo [...] call and speak with the hospitalist at [facility], Dr. Bowles who agreed accept patient [...] 50 mg (50 mg Oral Given 11/30/23 0200) dicyclomine (Bentyl) capsule 10 mg (has no administration in time range) ezetimibe (Zetia) tablet 10 mg (10 mg Oral Given 11/30/23 0200) famotidine (Pepcid) tablet 20 mg (has no administration in time range) finasteride (Proscar) tablet 5 mg (has no administration in time range) fluticasone (Flonase) nasal spray 1 spray (has no administration in time range) insulin glargine (Lantus) injection 48 Units (has no administration in time range) Insulin Lispro (Humalog) injection 16 Units (has no administration in time range) pancrelipase (Aox-Eohp-Dfpc) (Creon) 6000-03186 units per capsule 2 capsule (has no [...] 11/30/23 0433 Sergio Ruff DO 11/30/23 0435 [facility] 09-14-2023 Instructions Jacqui Glass DDS - [...] done to speak with an oral surgeon. [facility] [phone]. HELPING THE HEALING PROCESS AND STOPPING THE [...] any questions or concerns please contact us: [facility] . Ask for the postdoctoral scholar virtualization consultant (after hours). senior net application developer Clinic Hours: Mon-Fri 8:30 am to 4:30 pm. documented in this encounter [facility] 09-14-2023 Instructions Jacqui Glass DDS - 09/14/2023 [...] done to speak with an oral surgeon. [facility] [phone]. HELPING THE HEALING PROCESS AND STOPPING THE [...] any questions or concerns please contact us: [facility] . Ask for the postdoctoral scholar virtualization consultant (after hours). senior net application developer Clinic Hours: Mon-Fri 8:30 am to 4:30 pm. documented in this encounter [facility] 09-14-2023 History of Present illness Narrative ORAL SURGERY PROCEDURE ROOM NOTE [facility] Surgical Product(s): Routine extraction teeth # 21, [...] Arriaza DMD, MD documented in this encounter [facility] 09-06-2023 History of Present illness Narrative OMFS PATIENT VISIT CHIEF COMPLAINT: Pain HISTORY OF PRESENT ILLNESS: A 67 yo male with PMHx Coronary artery disease s/pCABG 2014, [facility]- showing patent GREY to the LAD 2017. LV function normal 04/2012, Angina, Acute kidney injury (HCC),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, MINERVA, COPD, Developmental disorder, Diabetes, GERD, Hyperlipidemia, IBS (irritable bowel syndrome),Obesity, Osteoarthritis Patient present to [facility] with external referral for removal of [...] artery without angina pectoris [I25.10] 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 [I25.10] Cataract, nuclear sclerotic, both eyes [...] unspecified [M15.9] Knee pain, bilateral [M25.561, M25.562] intermediate (current) use of antibiotics [Z79.2] Low back [...] unspecified reason [Z91.199] Peripheral vascular disease, unspecified ([facility]) [I73.9] Personal history of COVID-19 [Z86.16] Pseudomonas aeruginosa infection [A49.8] Respiratory failure ([facility]) [J96.90] Shoulder pain, left [M25.512] Spondylosis without myelopathy [M47.819] Tobacco abuse [Z72.0] Type 2 diabetes mellitus treated with insulin ([facility]) [E11.9, Z79.4] Type 2 diabetes mellitus with chronic kidney disease ([facility]) [E11.22] Type 2 diabetes mellitus with diabetic polyneuropathy ([facility]) [E11.42] Uncontrolled type 2 diabetes mellitus with hyperglycemia, with long-term current use of insulin ([facility]) [E11.65, Z79.4] Unspecified dementia, moderate, with psychotic disturbance [F03.B2] Vitamin D deficiency, unspecified [E55.9] Sternal wound dehiscence [T81.32XA] Wound disruption, post-op, skin, initial encounter [T81.31XA] REVIEW OF SYSTEMS: A 12-point review of systems was completed. Negative unless otherwise stated in HPI. MEDICATIONS: Current Outpatient Medications Medication Sig Dispense Refill pantoprazole (Protonix) 40 MG tablet 1 tab(s) orally once a day trimethoprim-polymyxin b (POLYTRIM) 43237-0.1 UNIT/ML-% ophthalmic solution kinxkkb-mfovgc-icyxkavq (CREON) 08175 units capsule Take by mouth. oxyCODONE-acetaminophen (ROXICET) [...] by mouth 4 times daily. Continuous Glucose Community Service Technician ([employer] [place] [address] [place]) vitamin B-12 (CYANOCOBALAMIN) 1000 MCG/ML injection Inject [...] tablet vitamin D2 ergocalciferol (DRISDOL) 1.25 MG (66304 UT) capsule Take 1.25 mg by mouth [...] fluticasone (FLONASE) 50 mcg/act nasal inhaler 1 [employer] daily. Advair Diskus 250-50 MCG/ACT inhaler gabapentin [...] #23, # 22 and #21. DIAGNOSIS: Caries [[id number]] ASSESSMENT: A 67 yo male with PMHx Coronary artery disease s/pCABG 2014, [facility]- showing patent GREY to the LAD 2017. LV function normal 04/2012, Angina, Acute kidney injury (HCC),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, MINERVA, COPD, Developmental disorder, Diabetes, GERD, Hyperlipidemia, IBS (irritable bowel syndrome),Obesity, Osteoarthritis Patient present to [facility] clinic with external referral for removal of lower teeth # 29, #27, #26, # 25, # 24, #23, # 22 and #21. PLAN: Our treatment plan to do extractions for teeth # 29, #27, #26, # 25, # 24, #23, # 22 and #21 and alveoplasty under LA in [facility] clinic. Jb De Souza DDS Associated attestation [...] were not included. documented in this encounter [facility] 08-21-2023 History of Present illness Narrative [facility] Cardiology [facility] [address] [place] [id number] Dept: [phone] Dept Visit type: Established : 1955 DATE of SERVICE: 08/21/2023 Chief Complaint: Chief Complaint Patient presents with 6 Month Follow-up Coronary Artery Disease History of Present Illness: James Reyes is a 67 y.o. male who presents today for routine follow-up regarding his coronary artery disease, previous bypass surgery in 2015, hyperlipidemia. He is accompanied by research test engine evaluator. Patient lives in assisted living at [facility]. He denies chest pain, palpitations dizziness lightheadedness or syncope. He was seen in in June by Mingo Gavin who ordered a dobutamine stress echocardiogram which was normal. There was no evidence of ischemia. Previous cardiac catheter 2018 showed patent GREY to the LAD. Patient's biggest complaint is arthralgias in his right knee. He is scheduled to see an orthopedic surgeon at [facility]. Apparently they are planning to try radiofrequency ablation of his pain nerves in his right knee. Past Medical History: Past Medical History: Diagnosis Date Acute kidney injury (HCC) 09/11/2015 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 08/08/2017 COPD (chronic obstructive pulmonary disease) [...] 07/18/2022 Performed by David Chen MD at [facility] OR CORONARY ARTERY BYPASS GRAFT FOOT [...] attack Mother 61.00 Heart disease Father Other ([id number]) Brother accident Coronary artery disease Father Diabetes [...] , Rfl: ergocalciferol (Vitamin D-2) 1.25 MG (08595 UT) capsule, Take 1.25 mg by mouth [...] for chest pain., Disp: , Rfl: pancrelipase, Btr-Ebiy-Gxxs, (Creon) 25379-37664 units capsule, Take by mouth 3 times [...] 08/07/17 Assessment and Plan: 1. 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 2. Dyslipidemia James Reyes is warm [...] made to ensure accuracy; however, inadvertent computerized analytical clerk errors may be present. documented in this encounter [facility] 07-13-2023 [facility]. [facility], please hold beta sonny for 24 hours and have pt NPO for 4 hours prior. [facility] 07-13-2023 Nurse [facility]. Pt has DSE tomorrow, please hold beta sonny for 24 hours and have pt NPO for 4 hours prior. documented in this encounter [facility] 06-06-2023 Note HNO ID: [id number] Author: MARIXA STEPHENS MD Service: ? Author Type: Physician Type: Progress Notes Filed: 06/06/2023 11:38 Note Text: (E11.9) Type 2 diabetes mellitus without retinopathy (HCC) (primary encounter diagnosis) (H35.8441) Nonexudative age-related macular degeneration, bilateral, early dry [...] agree with all of its relevant components. [facility] 06-06-2023 History of Present illness Narrative [...] its relevant components. documented in this encounter [facility] 05-12-2023 History of Present illness Narrative Images from the original note were not included. [facility] [address] [facility] [id number] Dept: [phone] Dept Visit type: Established : 1955 Reason for Visit: Hospital follow up for Chest pain Assessment and Plan 1.Chest pain- in setting of history of Coronary artery disease s/pCABG 2014, [facility]- showing patent GREY to the [...] pt in agreement to have testing at [facility] Continues on medical management; ASA, carvedilol [...] and tobacco abuse. He currently resides at [facility] in [place]. The patient reports he began to have [...] Every Monday ergocalciferol (Vitamin D-2) 1.25 MG (73730 UT) capsule Take 1.25 mg by mouth [...] 2 times daily. nystatin (Mycostatin) cream pancrelipase, Yxz-Zczb-Wjdk, (Creon) 14805-31052 units capsule Take by mouth 3 times [...] Acute kidney injury (HCC) 09/11/2015 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 08/08/2017 COPD (chronic obstructive pulmonary disease) [...] 07/18/2022 Performed by David Chen MD at [facility] OR CORONARY ARTERY BYPASS GRAFT FOOT [...] attack Mother 61.00 Heart disease Father Other ([id number]) Brother accident Coronary artery disease Father Diabetes [...] 11:59 PM (Final) Impression Sinus rhythm Prolonged VT interval Left anterior fascicular block Nonspecific T [...] gross dysfunction on Doppler studies Signed by: Shannan Corcoran MD on 04/27/2022 9:27 AM Review of tests/labs done/ordered outside my specialty: Independent interpretation of tests: PATRICIA Rodriguez CNP documented in this encounter [facility] 05-12-2023 Instructions PATRICIA Rodriguez CNP - 05/12/2023 10:00 AM EST Nuclear stress test planned documented in this encounter [facility] 05-03-2023 Telephone encounter Note Canceling appt with KM, patient does not follow EP. Sent message to [place] area secretary to reschedule patient with his team. [facility] 05-03-2023 Miscellaneous Notes Canceling appt with KM, patient does not follow EP. Sent message to [place] area secretary to reschedule patient with his team. Patient seen in consultation by Dr. Greenberg in the CDU. Recommended stress test, but patient declined. States he would follow-up with his process expert, Dr. Corcoran as an outpatient. Patient was discharged back to facility. Can you please call and schedule the patient to be seen by [address] Corcoran's SYSTEM OPERATION SUPERINTENDENT's at [facility] in 2 weeks? Thank you documented in this encounter [facility] 04-24-2023 Telephone encounter Note Patient seen in consultation by Dr. Greenberg in the CDU. Recommended stress test, but patient declined. States he would follow-up with his process expert, Dr. Corcoran as an outpatient. Patient was discharged back to facility. Can you please call and schedule the patient to be seen by [address] Corcoran's SYSTEM OPERATION SUPERINTENDENT's at [facility] in 2 weeks? Thank you [facility] Work Phone: 04-24-2023 Miscellaneous Notes Patient seen in consultation by Dr. Greenberg in the CDU. Recommended stress test, but patient declined. States he would follow-up with his process expert, Dr. Corcoran as an outpatient. Patient was discharged back to facility. Can you please call and schedule the patient to be seen by [address] Corcoran's SYSTEM OPERATION SUPERINTENDENT's at [facility] in 2 weeks? Thank you documented in this encounter [facility] 04-24-2023 Nurse Note Report called to Juan nurse. [facility] 04-24-2023 Nurse Note Report called to Juan nurse. Patient refusing stress test at this time. Patient states he has had them before and did not like it. Patient states he just wants to go home. Cardiology and CDU DERICK notified. documented in this encounter [facility] 04-24-2023 Plan of care note The patient is Moderately Stable - Low risk of patient condition declining or worsening The patient's goals for the shift include see cardiology The clinical goals for the shift include see cardiology Over the shift, the patient did not make progress toward the following goals. Barriers to progression include NA. Recommendations to address these barriers include NA. [facility] 04-24-2023 Miscellaneous Notes The patient is [...] S/W, follow up Patient discharged back to Loc[facility] Transport set via [facility] at 1p. metal can inspector provided report number Facility notified via careport as to transport time. Patient aware of DC back at 1p. S/W, following Patient in from [facility] with chest pain. Likely to dc today to return. Return referral sent via Careport to facility. S/W to follow for return. documented in this encounter [facility] 04-24-2023 Hospital Discharge instructions PATRICIA Nettles [...] 07/18/2022 Performed by David Chen MD at [facility] OR CORONARY ARTERY BYPASS GRAFT FOOT [...] current use of insulin (HCC) 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 Uncontrolled type 2 diabetes mellitus with complication, with long-term current use of insulin Pseudomonas aeruginosa infection Angina at rest Sternal wound dehiscence intermediate (current) use of antibiotics Enlarged prostate with lower urinary tract symptoms (LUTS) Hypertensive heart disease Overview Signed 01/27/2022 12:43 PM by Interface, Incoming Problems- [facility] Conversion ECHO DONE [facility] 55% EF SHOWS HYPERTENSIVE HEART DISEASE COPD (chronic obstructive pulmonary disease) (HCC) Overview Signed 01/27/2022 12:43 PM by Interface, Incoming Problems- [facility] Conversion PATIENT IS ON 2 LITER OF OXYGEN AND NOW IS SEEING DR ESTRADA WAS TESTED [facility] AND QUALIFED HOME OXYGEN 07/17/2015 Arthritis of [...] assistance Toileting Total assistance Feeding Minimal assistance Sports Team Manager Minimal assistance Med Delivery yes Wound Care [...] Score: @[email or web address]@ Discharging to Facility/ Agency Name: [facility] Address: [address] [place] [address] Fax: Dialysis Facility (if applicable) Name: Address: Dialysis Schedule: Phone: Fax: [place] Measurer/Perishable Freight Inspector signature: ICIAN SECTION Prognosis: fair Condition at [...] H&P PHYSICIAN SIGNATURE: documented in this encounter [facility] 04-24-2023 Note Formatting of this n ote might be different from the original. S/W, follow up Patient discharged back to [facility] Transport set via [facility] at 1p. metal can inspector provided report number Facility notified via careport as to transport time. Patient aware of DC back at 1p. [facility] 04-24-2023 Note Formatting of this n ote might be different from the original. S/W, follow up Patient discharged back to [facility] Transport set via [facility] at 1p. metal can inspector provided report number Facility notified via careport as to transport time. Patient aware of DC back at 1p. [facility] 04-24-2023 Nurse Note Spoke to Swati in CDU. Pt is choosing to go home, not have test. [facility] 04-24-2023 Nurse Note Spoke to Swati in CDU. Pt is choosing to go home, not have test. documented in this encounter [facility] 04-24-2023 Note Formatting of this n ote might be different from the original. S/W, following Patient in from [facility] with chest pain. Likely to dc today to return. Return referral sent via Careport to facility. S/W to follow for return. [facility] 04-24-2023 Note Formatting of this n ote might be different from the original. S/W, following Patient in from [facility] with chest pain. Likely to dc today to return. Return referral sent via Careport to facility. S/W to follow for return. [facility] 04-24-2023 Nurse Note Patient refusing stress test at this time. Patient states he has had them before and did not like it. Patient states he just wants to go home. Cardiology and CDU DERICK notified. [facility] 04-24-2023 Consult note Formatting of th is note is different from the original. [facility] CARDIOLOGY CONSULTATION Patient Name: James Reyes : [...] he will followup as outpatient with his process expert. C/w asa, coreg and lipitor Data Collection Cardiac Testin04/23/23 ECG 12-LEAD (Preliminary) This result has not been signed. Information might be incomplete. Impression Sinus rhythm Prolonged VT interval Left anterior fascicular block Nonspecific T [...] gross dysfunction on Doppler studies Signed by: Shannan Corcoran MD on 04/27/2022 9:27 AM No results found for this or any previous visit. 08/07/17 (Final) Narrative Ordered by an unspecified provider. Past Medical History: has a past medical history of Acute kidney injury (HCC) (09/11/2015), 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 (08/08/2017), COPD (chronic obstructive pulmonary disease) ([facility]), Developmental disorder, Diabetes mellitus (HCC), Esophageal reflux, Gastritis, GERD (gastroesophageal reflux disease), Hyperlipidemia, IBS (irritable bowel syndrome), Obesity, Osteoarthritis, Pain management, Plantar fasciitis, bilateral, Unspecified sleep apnea, and Urinary retention. He has no past medical history of Asthma, Atrial fibrillation (HCC), Cancer (CMS/HCC) ([facility]), Cerebral artery occlusion with cerebral infarction (HCC), CHF (congestive heart failure) ([facility]), Depression, Headache, Immune deficiency disorder (HCC), Kidney stone, Pneumonia, Seizures ([facility]), or Thyroid disease. SurgicalHistory: has a past surgical history that includes Colonoscopy (05/23/2017); Coronary artery bypass graft; Upper gastrointestinal endoscopy (04/01/2016); Other surgical history (10/24/2017); Other surgical history; Thyroid surgery; [place] tooth extraction; Hemorrhoid surgery; Colonoscopy; Cholecystectomy (03/29/2016); [...] use drugs. Family History: family history includes [id number] in his brother; Coronary artery disease in [...] in the evening. Take with meals. 02/22/23 Shannan Corcoran MD cholestyramine (Questran) 4 g packet [...] Historical ProviderMD ergocalciferol (Vitamin D-2) 1.25 MG (34701 UT) capsule Take 1.25 mg by mouth [...] nystatin (Mycostatin) cream 11/08/22 Historical Provider, pancrelipase, Vau-Afnb-Oixk, (Creon) 21839-33386 units capsule Take by mouth 3 times [...] Oral, Daily carvedilol, 6.25 mg, Oral, BID cholestyramine, 1 packet, Oral, TID WC Diclofenac Sodium, 2 g, Topical, BID dicyclomine, 10 mg, Oral, TID ezetimibe, 10 mg, Oral, Daily famotidine, 20 mg, Oral, Daily finasteride, 5 mg, Oral, Daily insulin glargine, 44 Units, SubCUTAneous, Daily Insulin Lispro, 16 Units, SubCUTAneous, TID WC mometasone-formoterol, 2 puff, Inhalation, BID pancrelipase (Vgl-Hflk-Lncj), 2 capsule, Oral, TID WC pregabalin, 150 [...] dry. Neurological: Mental Status: He is alert. [facility] Phone: 04-24-2023 Consult note Formatting of th is note is different from the original. [facility] CARDIOLOGY CONSULTATION Patient Name: James Reyes : [...] he will followup as outpatient with his process expert. C/w asa, coreg and lipitor Data Collection Cardiac Testin04/23/23 ECG 12-LEAD (Preliminary) This result has not been signed. Information might be incomplete. Impression Sinus rhythm Prolonged VT interval Left anterior fascicular block Nonspecific T [...] gross dysfunction on Doppler studies Signed by: Shannan Corcoran MD on 04/27/2022 9:27 AM No results found for this or any previous visit. 08/07/17 (Final) Narrative Ordered by an unspecified provider. Past Medical History: has a past medical history of Acute kidney injury (HCC) (09/11/2015), 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 (08/08/2017), COPD (chronic obstructive pulmonary disease) ([facility]), Developmental disorder, Diabetes mellitus ([facility]), Esophageal reflux, Gastritis, GERD (gastroesophageal reflux disease), Hyperlipidemia, IBS (irritable bowel syndrome), Obesity, Osteoarthritis, Pain management, Plantar fasciitis, bilateral, Unspecified sleep apnea, and Urinary retention. He has no past medical history of Asthma, Atrial fibrillation ([facility]), Cancer (CMS/HCC) ([facility]), Cerebral artery occlusion with cerebral infarction ([facility]), CHF (congestive heart failure) ([facility]), Depression, Headache, Immune deficiency disorder ([facility]), Kidney stone, Pneumonia, Seizures ([facility]), or Thyroid disease. SurgicalHistory: has a past surgical history that includes Colonoscopy (05/23/2017); Coronary artery bypass graft; Upper gastrointestinal endoscopy (04/01/2016); Other surgical history (10/24/2017); Other surgical history; Thyroid surgery; [place] tooth extraction; Hemorrhoid surgery; Colonoscopy; Cholecystectomy (03/29/2016); [...] use drugs. Family History: family history includes [id number] in his brother; Coronary artery disease in [...] in the evening. Take with meals. 02/22/23 Shannan Corcoran MD cholestyramine (Questran) 4 g packet [...] Historical ProviderMD ergocalciferol (Vitamin D-2) 1.25 MG (35964 UT) capsule Take 1.25 mg by mouth [...] nystatin (Mycostatin) cream 11/08/22 Historical Provider, pancrelipase, Klw-Irbi-Fqzx, (Creon) 87958-34454 units capsule Take by mouth 3 times [...] WC mometasone-formoterol, 2 puff, Inhalation, BID pancrelipase (Svf-Aebj-Mfgy), 2 capsule, Oral, TID WC pregabalin, 150 [...] He is alert. documented in this encounter [facility] 04-24-2023 Emergency department Note Report given to CDU MARLEY Snell RN 04/24/23 0804 [facility] 04-24-2023 Emergency department Note Report given to CDU MARLEY Snell RN 04/24/23 0804 Voltaren gel not given due to med not being available. Joelle Rivas RN 04/24/23 0358 Patient on telemetry monitoring. Joelle Rivas RN 04/23/23 222 EMERGENCY DEPARTMENT ENCOUNTER Pt Name: James Reyes [...] Acute kidney injury (HCC) 09/11/2015 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 08/08/2017 COPD (chronic obstructive pulmonary disease) [...] 07/18/2022 Performed by David Chen MD at [facility] OR CORONARY ARTERY BYPASS GRAFT FOOT [...] per week. ERGOCALCIFEROL (VITAMIN D-2) 1.25 MG (09300 UT) CAPSULE Take 1.25 mg by mouth [...] mg by mouth 2 times daily. PANCRELIPASE, [id number]-[id number]-YAUE, (CREON) [id number] UNITS CAPSULE Take by mouth 3 times [...] attack Mother 61.00 Heart disease Father Other ([id number]) Brother accident Coronary artery disease Father Diabetes [...] Response: Oriented Best Motor Response: Follows commands [place] Coma Scale Score: 15 HEART Score History: [...] Emergency Medicine Provider Gulshan Arreola DO 04/23/23 2248 Patient presents to the ED via EMS [...] Thorpe RN 04/23/232006 documented in this encounter [facility] 04-24-2023 Emergency department Note Voltaren gel not given due to med not being available. Joelle Rivas RN 04/24/23 0358 [facility] 04-23-2023 History of Present illness Narrative I am not directly involved in care of this patient. Accepted with initial orders placed remotely from [facility] with approval from Dr. Mckeon. Further care to be managed by ED provider pending day shift CDU provider arrival. This is a non-billable note. CLIVE Savage documented in this encounter [facility] 04-23-2023 Emergency department Note Patient on telemetry monitoring. Joelle Rivas RN 04/23/230 [facility] 04-23-2023 Emergency department Note Bed: 17 Expected date: 04/23/23 Expected time: 8:04 PM Means of arrival: Comments: Nancy Thorpe RN 04/23/232006 [facility] 04-23-2023 Emergency department Triage note Patient presents [...] the chronic arthritis in his right leg. [facility] 04-23-2023 Physician Emergency department Note EMERGENCY DEPARTMENT [...] Acute kidney injury (HCC) 09/11/2015 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 08/08/2017 COPD (chronic obstructive pulmonary disease) [...] 07/18/2022 Performed by David Chen MD at [facility] OR CORONARY ARTERY BYPASS GRAFT FOOT [...] per week. ERGOCALCIFEROL (VITAMIN D-2) 1.25 MG (60599 UT) CAPSULE Take 1.25 mg by mouth [...] mg by mouth 2 times daily. PANCRELIPASE, [id number]-[id number], (CREON) 36749-92259 UNITS CAPSULE Take by mouth 3 times [...] attack Mother 61.00 Heart disease Father Other ([id number]) Brother accident Coronary artery disease Father Diabetes [...] Response: Oriented Best Motor Response: Follows commands [place] Coma Scale Score: 15 HEART Score History: [...] Emergency Medicine Provider Gulshan Arreola DO 04/23/23 3877 [facility] 02-22-2023 History of Present illness Narrative [facility] Cardiology [facility] CARDIOLOGY [address] [facility] [facility] [id number] Dept: [phone] Dept Visit type: Established : 1955 Chief [...] Acute kidney injury (HCC) 09/11/2015 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 08/08/2017 COPD (chronic obstructive pulmonary disease) ([facility]) Developmental disorder Diabetes mellitus ([facility]) Esophageal reflux Gastritis see EGD on 03/29/2016 GERD (gastroesophageal reflux disease) Hyperlipidemia IBS (irritable bowel syndrome) Mixed Obesity Osteoarthritis Pain management Plantar fasciitis, bilateral Unspecified sleep apnea Urinary retention Past Surgical History Past Surgical History: Procedure Laterality Date CHOLECYSTECTOMY 03/29/20162010 COLONOSCOPY 05/23/2017 COLONOSCOPY 03/29/2016, repeat in 10 years, Dr. Ness, normal except internal hemorrhoid COLONOSCOPY N/A 07/18/2022 Performed by David Chen MD at [facility] OR CORONARY ARTERY BYPASS GRAFT FOOT [...] attack Mother 61.00 Heart disease Father Other ([id number]) Brother accident Coronary artery disease Father Diabetes [...] , Rfl: ergocalciferol (Vitamin D-2) 1.25 MG (41153 UT) capsule, Take 1.25 mg by mouth [...] 2 times daily., Disp: , Rfl: pancrelipase, Fdi-Cdsa-Hsrv, (Creon) [id number] units capsule, Take by mouth 3 times [...] and Plan: 1. Coronary artery disease involving nenana coronary artery of nenana heart without angina pectoris 2. Dyslipidemia James [...] made to ensure accuracy; however, inadvertent computerized analytical clerk errors may be present. documented in this encounter [facility] 12-13-2022 History of Present illness Narrative [...] kidney injury (CMS/HCC) (HCC) 09/11/2015 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 08/08/2017 COPD (chronic obstructive pulmonary disease) [...] 07/18/2022 Performed by David Chen MD at [facility] OR CORONARY ARTERY BYPASS GRAFT FOOT [...] per week. ergocalciferol (Vitamin D-2) 1.25 MG (02337 UT) capsule Take 1.25 mg by mouth [...] in this encounter. Follow Up: Start on [employer] looney diet to more fruits and vegatbiles and avoid all milk produts and no coffe but his colon was normal David Rodriguez MD, @TODAYLAATE@ documented in this encounter [facility] 07-18-2022 Note Formatting of this n ote might be different from the original. Discharged to [facility] (long-term resident). Accompanied by Arabella reyes . AVS and education reviewed with patient and Arabella, both verbalized understanding. Mode of transportation [place], patient accompanied with Arabella for transportation. Belongings sent. [facility] 07-18-2022 Note Formatting of this n ote might be different from the original. Discharged to [facility] (long-term resident). Accompanied by Arabella reyes . AVS and education reviewed with patient and Arabella, both verbalized understanding. Mode of transportation [place], patient accompanied with Arabella for transportation. Belongings sent. [facility] 07-18-2022 Miscellaneous Notes Discharged to [facility] (long-term resident). Accompanied by Arabella reyes . AVS and education reviewed with patient and Arabella, both verbalized understanding. Mode of transportation [place], patient accompanied with Arabella for transportation. Belongings sent. Images from the original note were not included. DEPARTMENT OF SURGERY OPERATIVE NOTE DATE OF PROCEDURE: 07/18/2022 ATTENDING SURGEON: David Rodriguez MD PROFESSOR OF CHEMICAL ENGINEERING: 0 PREOPERATIVE DIAGNOSIS: colon bleed POSTOPERATIVE DIAGNOSIS: ulcer gastric, divertiulosisi, hemorroids OPERATION: egd, colonoscopy ANESTHESIA: ga ESTIMATED BLOOD LOSS: Barbadian HISTORY: patient with anemoia and abdominal pain and rectal bleeding PROCEDURE: egd show hiatal hernia, small gastric ulcers Colon to ICV , shows a few ticks lots of stool no polyps tumor, few ticks and hemorroids 1345 blood sugar 85. Per report, pt had low blood sugar in the AM was given 2 glucose tabs documented in this encounter [facility] 07-18-2022 Hospital Discharge instructions Lashay Wong RN - 07/18/2022 3:[address] Rodriguez's office: [phone] Anesthesia and Activity: DO NOT drive, operate [...] attachments cannot be sent through Care Everywhere.Colonoscopy (Barbadian)Upper GI Endoscopy (Barbadian)documented in this encounter [facility] 07-18-2022 Note Formatting of this n ote might be different from the original. Images from the original note were not included. DEPARTMENT OF SURGERY OPERATIVE NOTE DATE OF PROCEDURE: 07/18/2022 ATTENDING SURGEON: David Rodriguez MD PROFESSOR OF CHEMICAL ENGINEERING: 0 PREOPERATIVE DIAGNOSIS: colon bleed POSTOPERATIVE DIAGNOSIS: ulcer gastric, divertiulosisi, hemorroids OPERATION: egd, colonoscopy ANESTHESIA: ga ESTIMATED BLOOD LOSS: Barbadian HISTORY: patient with anemoia and abdominal pain and rectal bleeding PROCEDURE: egd show hiatal hernia, small gastric ulcers Colon to ICV , shows a few ticks lots of stool no polyps tumor, few ticks and hemorroids [employer] Phone: 07-18-2022 Note Formatting of this n ote might be different from the original. Images from the original note were not included. DEPARTMENT OF SURGERY OPERATIVE NOTE DATE OF PROCEDURE: 07/18/2022 ATTENDING SURGEON: David Rodriguez MD PROFESSOR OF CHEMICAL ENGINEERING: 0 PREOPERATIVE DIAGNOSIS: colon bleed POSTOPERATIVE DIAGNOSIS: ulcer gastric, divertiulosisi, hemorroids OPERATION: egd, colonoscopy ANESTHESIA: ga ESTIMATED BLOOD LOSS: Barbadian HISTORY: patient with anemoia and abdominal pain and rectal bleeding PROCEDURE: egd show hiatal hernia, small gastric ulcers Colon to ICV , shows a few ticks lots of stool no polyps tumor, few ticks and hemorroids [employer] Phone: 07-18-2022 History and physical note Subjective [...] kidney injury (CMS/HCC) (HCC) 09/11/2015 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 08/08/2017 COPD (chronic obstructive pulmonary disease) ([facility]) Developmental disorder Diabetes mellitus ([facility]) Esophageal reflux Gastritis see EGD on 03/29/2016 [...] HLD Tobacco use Anemia Ibs Screening colonoscopy T [facility] 07-18-2022 History and physical note Subjective James [...] History: Diagnosis Date Acute kidney injury (CMS/HCC) ([facility]) 09/11/2015 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 08/08/2017 COPD (chronic obstructive pulmonary disease) ([facility]) Developmental disorder Diabetes mellitus ([facility]) Esophageal reflux Gastritis see EGD on 03/29/2016 [...] Ibs Screening colonoscopy documented in this encounter [facility] 07-18-2022 Note Formatting of this n ote might be different from the original. 1345 blood sugar 85. Per report, pt had low blood sugar in the AM was given 2 glucose tabs [facility] 07-18-2022 Note Formatting of this n ote might be different from the original. 1345 blood sugar 85. Per report, pt had low blood sugar in the AM was given 2 glucose tabs [facility] 06-07-2022 History of Present illness Narrative @[email or web address]@ HPI: James Reyes is a 66 y.o. [...] History: Diagnosis Date Acute kidney injury (CMS/HCC) ([facility]) 09/11/2015 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 08/08/2017 COPD (chronic obstructive pulmonary disease) ([facility]) Developmental disorder Diabetes mellitus ([facility]) Esophageal reflux Gastritis see EGD on 03/29/2016 [...] attack Mother 61.00 Heart disease Father Other ([id number]) Brother accident Coronary artery disease Father Diabetes Father @[email or web address]@ Assessment: 66 y.o. male in need of [...] as indicated. . documented in this encounter [facility] 05-06-2022 Miscellaneous Notes Addended by: WILMA GRANT on: 05/06/2022 11:06 AM Modules accepted: Orders documented in this encounter [facility] 05-06-2022 History of Present illness Narrative Assessment/Plan: 1. Type 2 diabetes mellitus without retinopathy (HCC) Patient educated on today's exam findings, importance of tight glucose control, and the importance of continued follow up with primary care physician and/or new car salesperson; monitor at complete exam. [facility] [...] evaluation c RRE documented in this encounter [facility] 05-06-2022 Instructions Wilma Grant OD - 05/06/2022 [...] your last [employer] Grid check, please call [phone] to schedule an appointment. . Dr. Grant [...] above listed brands. documented in this encounter [facility] 07-28-2021 Note HNO ID: [id number] Author: Aydee Juarez RN Service: Care Management Author Type: Registered Nurse Type: Care Mgt Progress Note Filed: 07/28/2021 3:01 PM Note Text: CARE MANAGEMENT DISCHARGE NOTE SERVICE DATE: 07/28/2021 SERVICE TIME: 2:59 PM LOS: 7 days Admission Date: 07/21/2021 DISCHARGE ARRANGEMENT (list agency and phone number) Discharge Arrangement: [facility] Provider Name: Boone De Guzman CAREGIVER ASSESSMENT: Called and updated pt's brother Sreekanth about DC to [facility] today at 7pm. HANDOFF COMMUNICATION: RN to RN report TRANSPORTATION ARRANGEMENTS: Transportation Arrangements: Ambulance/[employer] [employer] Agency and Phone #:: [facility] ( [facility] [phone] / [phone] Date of Trip: 07/28/21 Time of Trip: 1900 Type of Service: S Non-emergency Is Patient Medicaid Pending?: No Extruder Operator Location: [facility] Destination: [facility] Financial Care Management Responsibility: None ADDITIONAL CONTACT RESOURCES: Text message to Pt's ROBBIE Marrufo with facility info. SIGNATURE: Aydee Juarez RN PATIENT NAME: James Reyes DATE: July 28, 2021 TIME: 2:59 PM PAGER/CONTACT #: [phone] [facility] 07-28-2021 Note HNO ID: [id number] Author: Dayana Hill MD Service: Critical Care Author Type: Physician Type: Progress Notes Filed: 07/28/2021 12:42 PM Note Text: [facility] STAFF PHYSICIAN NOTE OF PERSONAL INVOLVEMENT [...] 136/71 Pulse: 74 71 68 79 Resp: 17 18 Temp: 36 ?C (96.8 ?F) [...] 07/27/2021 Neut% 86.9 07/21/2021 Lymph% 4.7 07/21/2021 [place]% 6.7 07/21/2021 Baso% 0.3 07/21/2021 Abs Neut 11.89 07/21/2021 Abs [place] 0.92 07/21/2021 Abs Eosin 0.12 07/21/2021 Abs [...] insulin regimen (more content not included)... [facility] 07-28-2021 Note HNO ID: [id number] Author: Myrna Banks DO Service: Critical Care [...] ? Mr. Reyes initially presented to the [facility] ED from [facility] on 07/21/2021 for evaluation of chest pain, [...] acetaminophen, 650 (more content not included)... [facility] 07-27-2021 Note HNO ID: [id number] Author: Dayana Hill MD Service: Critical Care Author Type: Physician Type: Progress Notes Filed: 07/27/2021 4:27 PM Note Text: [facility] STAFF PHYSICIAN NOTE OF PERSONAL INVOLVEMENT [...] 07/27/2021 Neut% 86.9 07/21/2021 Lymph% 4.7 07/21/2021 [place]% 6.7 07/21/2021 Baso% 0.3 07/21/2021 Abs Neut 11.89 07/21/2021 Abs [place] 0.92 07/21/2021 Abs Eosin 0.12 07/21/2021 Abs [...] (07/26/212023) Admit Weight: 106.6 kg (235 lb) (07/21/21931) DIET CARBOHYDRATE CONTROLLED Lines, Drains, and Airways [...] ID. -Co (more content not included)... [facility] 07-27-2021 Note HNO ID: [id number] Author: Aydee Juarez RN Service: Care Management Author Type: Registered Nurse Type: Care Mgt Progress Note Filed: 07/27/2021 11:12 AM Note Text: CARE MANAGEMENT PROGRESS NOTE SERVICE DATE: 07/27/2021 SERVICE TIME: 11:01 AM LOS: 6 days Needs Prior to Discharge: To Be Determined;OT/PT Evaluation;Discharge Transportation DC plan: Return to [facility] Dc date: TBD Barrier: Pt wears 2-4L O2 [...] 27, 2021 TIME: 11:01 AM PAGER/CONTACT #: [phone] [facility] 07-27-2021 Note HNO ID: [id number] Author: Myrna Banks DO Service: Family Practice [...] 417* -- (more content not included)... [facility] 07-26-2021 Note HNO ID: [id number] Author: Rosalie Dorantes DO Service: Critical Care Author Type: Resident Type: Plan of Care Filed: 07/26/2021 2:02 PM Note Text: Spoke with pt's brother, Sreekanth, and gave updates. Answered their questions to their satisfaction. Rosalie Dorantes DO Internal Medicine, PGY-2 07/26/21 2:01 PM [facility] 07-26-2021 Note HNO ID: [id number] Author: Rosalie Dorantes DO Service: Family Practice Author Type: Resident Type: Progress Notes Filed: 07/26/2021 1:59 PM Note Text: Attestation signed by Dayana Hill MD at 07/26/2021 3:32 PM [facility] STAFF PHYSICIAN NOTE OF PERSONAL INVOLVEMENT [...] 07/26/2021 Neut% 86.9 07/21/2021 Lymph% 4.7 07/21/2021 [place]% 6.7 07/21/2021 Baso% 0.3 07/21/2021 Abs Neut 11.89 07/21/2021 Abs [place] 0.92 07/21/2021 Abs Eosin 0.12 07/21/2021 Abs [...] PM --------- (more content not included)... [facility] 07-25-2021 Note HNO ID: [id number] Author: Steven Castellano MD Service: Critical Care Author Type: Resident Type: Progress Notes Filed: 07/25/2021 1:06 PM Note Text: Attestation signed by Abhijit Howell MD at 07/25/2021 10:38 PM [facility] STAFF PHYSICIAN NOTE OF PERSONAL INVOLVEMENT [...] Output: Intake/Output Summary (Last 24 hours) at 07/25/2021 2238 Last data filed at 07/25/2021 2100 Gross [...] 38 52* 57* 29.5 CBC: Recent Labs 07/25/2131607/24/21 0529 07/23/21 0044 07/22/21 0343 07/21/21 1020 [...] last 168 hours. BMP: Recent Labs 07/25/21111407/25/2131607/24/21 0507/23/21 0730 07/23/21 0044 07/22/21 0958 07/22/21 0343 [...] -- 1.73* 1.52* CHEM: Recent Labs 07/25/21 11107/25/2131607/24/21 0507/23/21 0730 07/23/21 0044 07/22/21 095 (more content not included)... [facility] 07-24-2021 Note HNO ID: [id number] Author: John Jay DO Service: Critical Care Author Type: Resident Type: Progress Notes Filed: 07/24/2021 5:41 PM Note Text: Attestation signed by Abhijit Howell MD at 07/24/2021 10:12 PM [facility] STAFF PHYSICIAN NOTE OF PERSONAL INVOLVEMENT [...] and soft and NT. +BSs. EXTREMITIES: Trace DIRECT SERVICE PROVIDER LE edema. 07/24/21 CXR: RESULT: This is [...] VPO2C 52* 57* 29.5 CBC: Recent Labs 07/24/21 0529 07/23/21 0044 07/22/21 0343 07/21/21 1020 WBC 15.57* 18.08* 15.27* 13.68* HB [...] the last 168 hours. BMP: Recent Labs 07/24/2152807/23/2130 07/23/214307/22/2195707/22/2134207/21/21 1020 GLUC 417* -- 319* -- 118* [...] Recent Labs 07/24/2152807/21/21 1020 PBNP 937* 872* /6 Blood cultures NG x 2 [...] to 30mg (more content not included)... [facility] 07-24-2021 Note HNO ID: [id number] Author: Interface Note Service: ? Author Type: ? Type: Progress Notes Filed: 07/24/2021 3:10 AM Note Text: Epic Scheduled Downtime: 07/24/2021 1:08:47 AM to 07/24/2021 2:53:47 AM [facility] 07-23-2021 Note HNO ID: [id number] Author: Steven Castellano MD Service: Critical Care Author Type: Resident Type: Progress Notes Filed: 07/23/2021 2:22 PM Note Text: Attestation signed by Abhijit Howell MD at 07/23/2021 7:22 PM [facility] STAFF PHYSICIAN NOTE OF PERSONAL INVOLVEMENT IN CARE I have reviewed the progress note obtained and documented by the resident and I personally participated in the white components. I have discussed the case and management of the patient's care. The following comments revise or confirm relevant white components of the note. Says may feel a little better or about the same. DIRECT SERVICE PROVIDER cough. No chest pain. Now on BiPAP [...] CARDIAC: Recent Labs 07/21/21 1020 PBNP 872* 07/21 Blood cultures NG x 2 [...] of care, medical plan for the day, partner management consultant recommendations, medical disposition and current medical [...] following organ (more content not included)... [facility] 07-22-2021 Note HNO ID: [id number] Author: Aydee Juarez RN Service: Care Management Author Type: Registered Nurse Type: Care Mgt Initial Assessment Filed: 07/22/2021 2:48 PM Note Text: CARE MANAGEMENT: ASSESSMENT AND DISCHARGE PLAN SERVICE DATE: July 22, 2021 SERVICE TIME: 2:37 PM PRIMARY CARE PHYSICIAN: Chelle Troncoso MD ADMISSION STATUS: Inpatient Needs Prior to Discharge: To Be Determined MEDICAL: [place] Health Insurance: Medicaid Last Discharge Date: [...] None Has the Patient Been in a Mcfp Facility in the Past 30 days?: Yes Location and Dates: [facility] SOCIAL: Living Arrangements: Nursing Facility Lives [...] Completely I feel financially burdened by my iwq-se-ywytun expenses for my prescription medication:: 0 - Disagree Completely Risk Score: 0 Patient is categorized as: Low risk < 2 Are you interested in bedside delivery of your medications? No Is Patient Psychosocially Complex?: No ASSESSMENT AND PLAN: Medical Needs: Medical Needs: None Psychosocial Needs: Psychosocial Needs: None FREEDOM OF CHOICE EXPLAINED: Vina of Choice Given: Yes POTENTIAL TRANSITION PLANS Mcfp Facility/Intermediate Care Facility Pt lives at [facility]. Pt plans to return. Facility assists with meds and meals. Pt requests call to brother Mayo [phone]. Called and left message. Pt may need O2. Message to facility to check if pt on O2. SIGNATURE: Aydee Juarez RN PATIENT NAME: James Reyes DATE: July 22, 2021 TIME: 2:37 PM PAGER/CONTACT #: [phone] [facility] 07-22-2021 Note HNO ID: [id number] Author: Abhijit Howell MD Service: Critical Care Author Type: Physician Type: Progress Notes Filed: 07/22/2021 2:48 PM Note Text: [facility] STAFF PHYSICIAN NOTE OF PERSONAL INVOLVEMENT [...] the last 168 hours. BMP: Recent Labs 07/22/21 0958 07/22/213 07/21/21 1020 GLUC -- 118* 61* NA -- 137 140 K -- 5.0 4.5 CHLOR -- 100 101 CO2 26 27 27 ANION -- 10 12 BUN -- 29* 25* CREAT -- 1.73* 1.52* CHEM: Recent Labs 07/22/21 0958 07/22/21 0343 07/21/21 1020 ALB -- -- 3.3* TPROT -- [...] of care, medical plan for the day, partner management consultant recommendations, medical disposition and current medical [...] Time I (more content not included)... [facility] 07-22-2021 Note HNO ID: [id number] Author: Nancy Gong RPh Service: Pharmacy Author Type: Pharmacist Type: Plan of Care Filed: 07/22/2021 1:20 PM Note Text: PHARMACY MEDICATION REVIEW Patient Name: James Reyes : 1955 The following medications were updated within the W[employer]PER [employer] medication list: Medications ADDED to [facility] medication list ? All medications below were added to the [facility] medication list. Medications CHANGED on [facility] medication list ? N/A Medications REMOVED from [facility] medication list ? Removed all previous entries including: ? Flomax ? Simethicone ? Percocet ? Metformin ? Lovastatin ? Insulin lispro ? lantus ? Folic acid ? Fenofibrate entries ? Aspirin ? Atorvastatin ? Bisacodyl ? Ferrous sulfate Additional comments: N/A The below information represents the best possible medication history: Yes Medication history completed by: Pharmacist: Nancy Gong RPh Source of history: longterm/Other [facility] Order Summary Report Medication nonadherence identified: No barriers noted Reconciliation completed: Yes Completed by: ICU team. All [facility] [employer] medications addressed by LIP Patient interested in Bedside Delivery Services or using OP Pharmacy at discharge? No; N/A Preferred outpatient pharmacy: [address] [address] [facility] [phone] Allergies: Penicillins Unknown Teramycin [Oxytetra* Unknown Prior [...] nasal spray Yes Yes Sig: Use 1 [employer] in the nose every 12 hours as needed (congestion). tamsulosin (FLOMAX) 0.4 mg Yes Yes Sig: Take 0.4 mg by mouth twice daily. tiZANidine (ZANAFLEX) 2 mg tablet Yes Yes Sig: Take 2 mg by mouth three times daily. Morning, afternoon, and bedtime for spasms Facility-Administered Medications: None Nancy Gong [facility] 07/22/2021 [facility] 07-22-2021 Note HNO ID: [id number] Author: Steven Castellano MD Service: Critical Care [...] 41.44] Mr. Reyes initially presented to the [facility] ED from [facility] on 07/21/2021 for evaluation of chest pain, dyspnea and cough, after being found to be saturating ~80% on RA. Upon initial evaluation in the ED, the patient was found to be hypoxic to ~80% requiring the use of NC and then later NRB. He was otherwise hemodynamically stable. Initial labs in the ED were significant for Glucose 56 (received amp D50), Assistant Merchandise Manager: 1.52, WBC: 13.68, Plt: 407, and NT-ProBNP [...] Saturating ~90% on BiPAP Micro: Blood Culture (4/6): No Growth at 1 Day MRSA Nares (4/6): Pending Labs: BMP Reviewed: Na: 137, K: 5.0, Bicarb: 27, Anion Gap: 10, Assistant Merchandise Manager: 1.73 CBC Reviewed: WBC: 15.27, Hgb: 12.3 [...] 115/60 Pulse: 70 73 66 Resp: 19 16 Temp: 37.1 ?C (98.78 ?F) 36.9 ?C (98.42 ?F) 36.8 ?C (98.24 ?F) TempSrc: Axillary SpO2: 90% 89% 91% Weight: Height: NET FLUID BALANCE Intake/Output Summary (Last 2 (more content not included)... [facility] 07-21-2021 Note HNO ID: [id number] Author: Juanito Morgan MD Service: Pulmonary Disease Author Type: Physician Type: Progress Notes Filed: 07/21/2021 3:58 PM Note Text: [facility] STAFF PHYSICIAN NOTE OF PERSONAL INVOLVEMENT [...] procedures. SIGNATURE: Juanito Morgan MD [facility] PAGER:[phone] DATE of SERVICE: July 21, 2021 [facility] 07-21-2021 Note HNO ID: [id number] Author: Tiffany Moran RPh Service: Pharmacy Author Type: Pharmacist Type: Progress Notes Filed: 07/21/2021 1:29 PM Note Text: Pharmacy Consult Agreement: Dose Rounding Patient Name: James Reyse Service Date: 07/21/2021 Service Time: 1:29 PM The following changes have been made to the patient's medication therapy as part of the pharmacy consult agreement. Current Therapy: 624 mg IV x 1 New Therapy: 620 mg IV x 1 Thank you for allowing me to participate in the care for this patient. Signature: Tiffany Moran RP Pager/Extension: [phone] [facility] 05-06-2019 Hospital Discharge instructions Barry Guadalupe MD - 05/06/2019 Discontinue lisinopril Discontinue Lasix No citrus foods Discontinue potassium chloride The following attachments cannot be sent through Care Everywhere.Hyperkalemia (Barbadian)[facility] Phone: 04-12-2019 Hospital Discharge instructions James Begum MD - 04/12/2019 Call your doctor for follow-up care. The following attachments cannot be sent through Care Everywhere.Back Pain (Barbadian)documented in this encounter [facility] Work Phone: Evaluation [...] as to cause [facility] Diagnosis Irritable bowel syndrome with both constipation and diarrhea- Primary Anemia, unspecified Mixed irritable bowel syndrome Encounter for screening for malignant neoplasm of colon [facility] Diagnosis Irritable bowel syndrome with both constipation and diarrhea- Primary Anemia, unspecified Mixed irritable bowel syndrome Encounter for screening for malignant neoplasm of colon [facility] noteNo assessment information availableWKettering [facility] Work Phone: Evaluation note* Diagnosis Functional diarrhea- Primary [facility] [place] [facility]* Diagnosis Coronary artery disease involving nenana coronary artery of nenana heart without angina pectoris- Primary Dyslipidemia Other and unspecified hyperlipidemia [facility] [place] [facility]* Diagnosis Chest pain- Primary Unspecified chest pain Chest pain, unspecified type Other chest pain [facility] Diagnosis Coronary artery disease involving nenana coronary artery of nenana heart without angina pectoris- Primary Stable angina pectoris documented [facility] [place] [facility]* Diagnosis Type 2 diabetes mellitus without retinopathy (HCC)- Primary Type II or unspecified type diabetes mellitus without mention of complication, not stated as uncontrolled Nonexudative age-related macular degeneration, bilateral, early dry stage Cataract, nuclear sclerotic, both eyes Senile nuclear sclerosis [facility] [place] [facility]* Diagnosis Coronary artery disease involving nenana coronary artery of nenana heart without angina pectoris Stable angina pectoris (HCC) documented [facility] [place] [facility]* Diagnosis 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 Dyslipidemia Other and unspecified hyperlipidemia [facility] [place] [facility]* Diagnosis Chronic dental caries extending to pulp- Primary Dental caries extending into pulp [facility] Diagnosis Caries- Primary Unspecified dental caries [facility] Diagnosis Chronic dental caries extending to pulp- Primary Dental caries extending into pulp [facility] Diagnosis Closed head injury, initial encounter- Primary Closed head injury, initial encounter Fall, initial encounter Pain in both knees, unspecified chronicity [facility]* Diagnosis Coronary artery disease involving coronary bypass 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- Primary Chest pain, unspecified type Mixed hyperlipidemia [facility]* Diagnosis Coronary artery disease involving nenana coronary artery of nenana heart without angina pectoris Other congestive heart failure (HCC) [facility]* Diagnosis Irritable bowel syndrome with both constipation and diarrhea- Primary [facility]* Diagnosis Recurrent UTI Urinary tract infection, site not specified [facility]* Diagnosis Elevated PSA- Primary Elevated prostate specific antigen (PSA) BPH with lower urinary tract symptoms without urinary obstruction Urge incontinence Gross hematuria Recurrent UTI Urinary tract infection, site not specified Retention of urine, unspecified Recurrent UTI Urinary tract infection, site not specified documented [facility]* Diagnosis Acute hypercapnic respiratory failure (HCC)- Primary Acute hypercapnic respiratory failure (HCC) Hypercapnia Other dyspnea and respiratory abnormality Hypoxia Hypoxemia [facility]* Diagnosis BPH with lower urinary tract symptoms without urinary obstruction Urge incontinence Elevated PSA Elevated prostate specific antigen (PSA) Gross hematuria [facility]* Diagnosis Hematemesis- Primary Hematemesis Coffee ground emesis Hematemesis [facility] (narrative)No reason for referral information availableWKettering [facility] Work Phone: Summary Purpose Family History Family Member Condition Other Family Member No known family hist ory Advance Directives Documents on File Type Date Recorded 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 DNR (Do Not Resuscitate) 10/16/2017 Date Activated Date Inactivated Comments 11/30/2023 1:00 AM Date Activated Date Inactivated Comments 04/24/2023 1:27 AM 04/24/2023 3:38 PM Documents on File Type Date Recorded 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 anation Advance Directives and Living Will Power of Rotary Furnace Tender Latest Code Status on File Code Status [...] Documents on File Type Date Recorded 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 anation DNR (Do Not Resuscitate) 10/16/2017 [...] and Reason for Visit Chief Complaint LABWORK PENITENTIARY LAB WORK Chief Complaint LABWORK PENITENTIARY LAB WORK PENITENTIARY LABWORK Chief Complaint PENITENTIARY LAB WOR K Chief Complaint PENITENTIARY LAB WOR K PENITENTIARY LAB WORK Chief Complaint Admit Date PENITENTIARY LAB WORK March 26 5:00am LABWORK April 01, 2024 5:00am PENITENTIARY LAB WORK May 14, 2024 7:35am PENITENTIARY LAB WORK July 01, 2024 5 :00am Chief Complaint Admit Date LABWORK September 23, 2024 5:00a m PENITENTIARY LAB WORK September 25, 2024 5: 00am PENITENTIARY LAB WORK September 30, 2024 12 :05am PENITENTIARY LAB WORK October 06, 2024 10 :15pm PENITENTIARY LAB WORK October 24, 2024 6: 30am Reason for Referral Specialty Diagnoses / Procedures Referred By Contac t Referred To Contact Cardiology Diagnoses Coronary artery disease involving nenana coronary artery of nenana heart without angina pectoris Stable angina pectoris Procedures Stress echocardiogram (TTE) dobutamine with contrast, bubble, strain, and 3D PRN order panel VT ECHO TTHRC R-T 2D W/WO M-MODE COMPLETE REST&ST VT ECHO TTHRC R-T 2D W/WO M-MODE REST&STRS CONT ECG VT DOPPLER ECHOCARD PULSE WAVE W/SPECTRAL DISPLAY VT DOP ECHOCARD COLOR FLOW VELOCITY MAPPING VT CV STRS TST XERS&/OR RX CONT ECG W/O I&R VT CV STRS TST XERS&/OR RX CONT ECG TRCG ONLY VT CV STRS TST XERS&/OR RX CONT ECG I&R ONLY Mingo Gavin HYDRAULIC BLOCKER - [employer] [address] [place] [address] Referral ID Status Reason Start Date Expiration Date V isits Requested Visits Authorized [id number] Pending Review 05/12/2023 05/11/2024 1 1 Specialty Diagnoses / Procedures Referred By Contac t Referred To Contact Cardiology Diagnoses Coronary artery disease involving nenana coronary artery of nenana heart without angina pectoris Stable angina pectoris (HCC) Procedures Stress echocardiogram (TTE) dobutamine with contrast, bubble, strain, and 3D PRN order panel VT ECHO TTHRC R-T 2D W/WO M-MODE COMPLETE REST&ST VT ECHO TTHRC R-T 2D W/WO M-MODE REST&STRS CONT ECG VT DOPPLER ECHOCARD PULSE WAVE W/SPECTRAL DISPLAY VT DOP ECHOCARD COLOR FLOW VELOCITY MAPPING VT CV STRS TST XERS&/OR RX CONT ECG W/O I&R VT CV STRS TST XERS&/OR RX CONT ECG TRCG ONLY VT CV STRS TST XERS&/OR RX CONT ECG I&R ONLY Leslye Mingo Ap, HYDRAULIC BLOCKER - [employer] [address] [place] [address] Referral ID Status Reason Start Date Expiration Date Visits Re quested Visits Authorized [id number] Closed 05/12/2023 05/11/2024 1 1 Specialty Diagnoses / Procedures Referred By Contac t Referred To Contact Dentistry Diagnoses Chronic dental caries extending to pulp Rony Arriaza DMD, MD [address] [place] [address] [id number] [place] [address] Referral ID Status Reason Start Date Expiration Date V isits Requested Visits Authorized [id number] Authorized 09/14/2023 03/12/2024 3 3 Scheduling Instructions Please call the Dental Clinic at [facility] at to schedule an appointment if one was not made for you today. Specialty Diagnoses / Procedures Referred By Chely rosales Referred To Contact Oral Surgery Diagnoses Caries Procedures EXTRACTION ERUPTED TOOTH/EXR Rony Arriaza DMD, MD [address] [place] [id number] Referral ID Status Reason Start Date Expiration Date V isits Requested Visits Authorized [id number] Pending Review 09/06/2023 09/05/2024 1 1 Scheduling [...] your procedure, you will be contacted with [id number] costs or next steps. All self-pay payments [...] the procedure: You also MUST have a tractor sweeper driver/escort >18yrs old present to take you [...] Clinic Specialty Diagnoses / Procedures Referred By Chely rosales Referred To Contact Cardiology Diagnoses Coronary artery disease involving nenana coronary artery of nenana heart without angina pectoris Other congestive heart failure (HCC) Procedures Transthoracic echocardiogram (TTE) complete with contrast, bubble, strain, and 3D PRN VT ECHO TTHRC R-T 2D W/WOM-MODE COMPL SPEC&COLR D VT TTE W OR WO FOL WCON,DOPPLER Shannan Corcoran MD [address] [place] [address] [facility] Non-Invasive Cardiology [address] [place] [phone] Referral ID Status Reason Start Date Expiration Date V isits Requested Visits Authorized Closed Perform Procedure 04/13/2022 10/10/2022 1 1 Additional Source Comments (unrecognized sect ion and content) No Status Records FoundNo Status Records FoundNo Status Records FoundNo Status Records FoundNo Status Records FoundNo Status Records FoundNo Status Records FoundNo Status Records FoundNo Status Records Found INFORMATION SOURCE (unrecogn ized section and content) DATE CREATED AUTHOR 01/30/2018 [employer] DATE CREATED AUTHOR AUTHOR'S ORGANIZ ATION 03/07/2018 [facility] DATE CREATED AUTHOR AUTHOR'S ORGANIZ ATION 08/10/2018 [facility] DATE CREATED AUTHOR AUTHOR'S ORGANIZ ATION 05/06/2019 [facility] DATE CREATED AUTHOR AUTHOR'S ORGANIZ ATION 07/29/2021 [facility] DATE CREATED AUTHOR AUTHOR'S ORGANIZ ATION 06/07/2023 [facility] DATE CREATED AUTHOR AUTHOR'S ORGANIZ ATION 10/12/2023 [employer] [facility] DATE CREATED AUTHOR AUTHOR'S ORGANIZ ATION 10/18/2024 [facility] DATE CREATED AUTHOR AUTHOR'S ORGANIZ ATION 11/17/2024 [facility] Source Comments (unrecognize d section and content) In the event this informatio n is protected by the Federal Confidentiality of Alcohol and Drug Abuse Patient Records regulations: The Federal rules restrict any use of the information to criminally investigate or prosecute any alcohol or drug abuse patient.[facility] the event this information is protected by the Federal Confidentiality of Alcohol and Drug Abuse Patient Records regulations: The Federal rules restrict any use of the information to criminally investigate or prosecute any alcohol or drug abuse patient.[facility] the event this information is protected by the Federal Confidentiality of Alcohol and Drug Abuse Patient Records regulations: The Federal rules restrict any use of the information to criminally investigate or prosecute any alcohol or drug abuse patient.[facility] Reason for Visit (unrecogniz ed section and content) bilateral hip pain, New/Est - 1st visit with physician Reason Comments Back Pain Leg Pain Hip Pain Reason Comments Abnormal Lab Reason Comments Diabetic Eye Exam Reason Comments Follow-up IBS/diarrhea..colono scopy results from July by you in [place] Reason Comments 6 Month Follow-up Coronary Artery Disease Reason Comments Chest Pain Specialty Diagnoses / Procedures Referred By Chely rosales Referred To Contact Diagnoses Chest pain Chest pain, unspecified type Procedures . Robbie Mckeon MD [address] [place] [address] [facility] [address] [place] [address] Referral ID Status Reason Start Date Expiration Date Visits Re quested Visits Authorized [id number] 1 1 Reason Comments Hospital Follow-up Chest pain Reason Comments Blurred Vision Both Eyes Specialty Diagnoses / Procedures Referred By Chely t Referred To Contact Cardiology Diagnoses Coronary artery disease involving nenana coronary artery of nenana heart without angina pectoris Stable angina pectoris (HCC) Procedures Stress echocardiogram (TTE) dobutamine with contrast, bubble, strain, and 3D PRN order panel VT ECHO TTHRC R-T 2D W/WO M-MODE COMPLETE REST&ST VT ECHO TTHRC R-T 2D W/WO M-MODE REST&STRS CONT ECG VT DOPPLER ECHOCARD PULSE WAVE W/SPECTRAL DISPLAY VT DOP ECHOCARD COLOR FLOW VELOCITY MAPPING VT CV STRS TST XERS&/OR RX CONT ECG W/O I&R VT CV STRS TST XERS&/OR RX CONT ECG TRCG ONLY VT CV STRS TST XERS&/OR RX CONT ECG I&R ONLY Mingo Gavin, HYDRAULIC BLOCKER - 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 12/13/2022 12/14/2023 3 3 Specialty Diagnoses / Procedures Referred By Chely t Referred To Contact Diagnoses Closed head injury, initial encounter Fall, initial encounter Procedures . Lorenza Bowles MD [address] [place] [address] [facility] 4w Cpi u [address] [place] [phone] Referral ID Status Reason Start Date Expiration Date Visits Re quested Visits Authorized [id number] 1 1 Reason Comments Fall Head Laceration Specialty Diagnoses / Procedures Referred By Contac t Referred To Contact Diagnoses Closed head injury, initial encounter Fall, initial encounter Procedures . Lorenza Bowles MD [address] [place] [place] [address] [facility] [address] [place] [address] Reason Comments 6 Month Follow-up Specialty Diagnoses / Procedures Referred By Contac t Referred To Contact Diagnoses Atherosclerotic heart disease of nenana coronary artery without angina pectoris Heart failure, unspecified (HCC) Procedures VT ECHO TTHRC R-T 2D W/WOM-MODE COMPL SPEC&COLR D VT TTE W OR WO FOL WCON,DOPPLER [facility] Non-Invasive Cardiology [address] [place] [phone] Referral ID Status Reason Start Date Expiration Date Visits Re quested Visits Authorized [id number] 1 1 Reason Comments New Patient Melena/bleeding [...] failure (HCC) Procedures J96.02 Haydee Willis DO [address] [place] [address] Phone: tel: fax: [facility] ED [address] [place] [address] Phone: tel: Referral ID Status Reason Start Date Expiration Date Visits Re quested Visits Authorized [id number] 1 1 Reason Comments Procedure Cysto Benign Prostatic Hypertrophy UTI Urinary Incontinence Reason Comments Vomiting Blood Specialty Diagnoses / Procedures Referred By Contac t Referred To Contact Diagnoses Hematemesis Procedures . Beth[facility] Sandhu [facility] [address] [facility] [address] [address] Phone: tel: fax: [facility] ED [address] [place] [address] Phone: tel: Referral ID Status Reason Start Date Expiration Date Visits Re quested Visits Authorized [id number] 1 1 Care Teams (unrecognized sec tion and content) 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 Attendant Relationship Specialty Start Date End Date Chelle Troncoso [address] [place], [place] [id number] PCP - General Family Medicine 04/28/21 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 Attendant Relationship Specialty Start Date End Date Chelle Troncoso [address] [place] [address] [address] [place] [address] PCP - General Family Medicine 06/08/22 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 Attendant Relationship Specialty Start Date End Date Chelle Troncoso [address] [place] [address] [address] [place] [address] PCP - General Family Medicine 06/08/22 Team Status: Inactive Member Role Status Dates Chelle GARCIA Attending Provider Active Team Status: Active Member Role Status Dates Chelle GARCIA Attending Provider Active 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 Attendant Relationship Specialty Start Date End Date Chelle Troncoso [address] [place] [address] [address] [place] [address] PCP - General Family Medicine 06/08/22 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 Attendant Relationship Specialty Start Date End Date Chelle Troncoso [address] [place] [address] [address] [place] [address] PCP - General Family Medicine 06/08/22 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 Attendant Relationship Specialty Start Date End Date Chelle Troncoso [address] [place] [address] [address] [place] [address] PCP - General Family Medicine 06/08/22 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 Attendant Relationship Specialty Start Date End Date Chelle Troncoso [address] [place] [address] [address] [place] [address] PCP - General Family Medicine 06/08/22 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 Attendant Relationship Specialty Start Date End Date Chelle Troncoso [address] [place] [address] [address] [place] [address] PCP - General Family Medicine 06/08/22 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 Attendant Relationship Specialty Start Date End Date Chelle Troncoso [address] [place] [address] [address] [place] [address] PCP - General Family Medicine 06/08/22 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 Attendant Relationship Specialty Start Date End Date Chelle Troncoso [address] [facility] [place] [address] PCP - General Family Medicine 04/28/21 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 Attendant Relationship Specialty Start Date End Date Chelle Troncoso [address] [place] [address] [address] [place] [address] PCP - General Family Medicine 06/08/22 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 Attendant Relationship Specialty Start Date End Date Chelle Troncoso [address] [place] [address] [address] [place] [address] PCP - General Family Medicine 06/08/22 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 Attendant Relationship Specialty Start Date End Date Rony Arriaza DMD, MD [address] [place] [address] Physician Oral & Maxillofacial Surgery 09/16/23 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 Attendant Relationship Specialty Start Date End Date Rony Arriaza DMD, MD [address] [place] [address] Physician Oral & Maxillofacial Surgery 09/16/23 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 Attendant Relationship Specialty Start Date End Date [facility]- Marixa Rodriguez Primary Care Provider 11/24/23 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 Attendant Relationship Specialty Start Date End Date [facility] Nicky Rodriguez Primary Care Provider 11/24/23 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 Attendant Relationship Specialty Start Date End Date Chelle Troncoso MD [address] [place] [address] [address] [place] [address] PCP - General Family Medicine 03/08/24 [facility] Marixa Rodriguez Primary Care Provider 11/24/23 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 Attendant Relationship Specialty Start Date End Date Jose Martin [place] [address] [place] [phone] PCP - General 12/12/18 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 Attendant Relationship Specialty Start Date End Date Jose Martin [place] [address] [place] [phone] PCP - General 12/12/18 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 Attendant Relationship Specialty Start Date End Date Chelle Troncoso MD [address] [place] [address] [address] [place] [address] PCP - General Family Medicine 03/08/24 Pepe Marino MD [address] [facility] [address] [place] [address] Surgeon Urology 05/02/24 [facility] Marixa Leanne Primary Care Provider 11/24/23 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 Relationship Specialty Start Date End Date Chelle Trocnoso MD [address] [place] [address] [address] [place] [address] PCP - General Family Medicine 03/08/24 Pepe Marino MD [address] [address] Surgeon Urology 05/02/24 [facility] Marixa Rodriguez Primary Care Provider 11/24/23 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 Attendant Relationship Specialty Start Date End Date Chelle Troncoso MD [address] [place] [address] [address] [place] [address] PCP - General Family Medicine 03/08/24 Pepe Marino MD [address] [address] Surgeon Urology 05/02/24 [facility] Marixa Rodriguez Primary Care Provider 11/24/23 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 Attendant Relationship Specialty Start Date End Date Chelle Troncoso MD [address] [place] [address] [address] [place] [address] PCP - General Family Medicine 03/08/24 Pepe Marino MD [address] [address] Surgeon Urology 05/02/24 [facility] Marixa Rodriguez Primary Care Provider 11/24/23 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 Attendant Relationship Specialty Start Date End Date Chelle Troncoso MD [address] [place] [address] [address] [place] [address] PCP - General Family Medicine 03/08/24 Pepe Marino MD [address] [address] Surgeon Urology 05/02/24 [facility] Marixa Rodriguez Primary Care Provider 11/24/23 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 Attendant Relationship Specialty Start Date End Date Chelle Troncoso MD [address] [place] [address] [address] [place] [address] PCP - General Family Medicine 03/08/24 Pepe Marino MD 201 [facility] [address] [place] [address] Surgeon Urology 05/02/24 [facility] Nicky Rodriguez Primary Care Provider 11/24/23 Team [...] July 01, 2024 End: July 01, 2024 Team Status: Active Member Role/Relationship Status Dates Chelle GARCIA Attending Provider Active Star t: September 23, 2024 Team Status: Active Member Role/Relationship Status Dates Chelle GARCIA Attending Provider Active Star t: September 25, 2024 Team Status: Inactive Member Role/Relationship Status Dates Chelle GARCIA Attending Provider Active Star t: September 30, 2024 End: September 30, 2024 Chelle GARCIA Referring Provider Active Star t: September 30, 2024 End: September 30, 2024 Team Status: Active Member Role/Relationship Status Dates Chelle GARCIA Attending Provider Active Star t: October 06, 2024 Chelle GARCIA Referring Provider Active Star t: October 06, 2024 Team Status: Active Member Role/Relationship Status Dates Chelle GARCIA Attending Provider Active Star t: October 24, 2024 Team Status: Inactive Member Role/Relationship Status Dates Chelle GARCIA Attending Provider Active Star t: September 25, 2024 End: September 25, 2024 Goals (unrecognized section and content) Goals [...] may be documented in an alternate section No Information Available Scheduled Active and Recently Administ ered Medications [...] (Given - Provider: Joelle Rivas RN) pancrelipase (Dtr-Ywck-Rtbi) (Creon) 6000-45317 units per capsule 2 capsule 2 capsule, [...] sedation for opioid reversal - MUST notify virtualization consultant provider immediately after first dose, may give [...] 0829 (Given - Provider: Santa English RN) 0854 (Given - Provider: Romario Luna, MARLEY) [...] RN) 1242 (New Bag - Provider: Romario Luna, RN)1312 (Stopped - Provider: Romario Luna, RN) [...] RN) 0854 (Given - Provider: Romario Luna RN)1242 [...] Balderas RN) 0856 (Given - Provider: Romario Luna, MARLEY) cyanocobalamin (Vitamin B-12) injection 1,000 mcg 1,000 [...] English, RN)2100 (Given - Provider: Kel Balderas, RN) 0854 (Given - Provider: Romario Luna, RN)1400 (Not Given - Provider: Romario Luna RN [...] at 0115 2027 (Given - Provider: Mamta Lai RN) 2129 (Given - Provider: Kel Balderas RN) famotidine (Pepcid) tablet 20 mg 20 mg, Oral, Daily, First dose on [place] 11/30/23 at 0800 0844 (Given - Provider: Starla Marte RN) 0829 (Given - Provider: Santa English RN) 0854 (Given - Provider: Romario Luna, RN) finasteride (Proscar) tablet 5 mg 5 [...] Patient/family refused) 0831 (Given - Provider: Santa English RN) 09 (Given - Provider: Romario Luna RN) insulin glargine (Lantus) injection 48 Units 48 Units, SubCUTAneous, Daily, First dose on [place] 11/30/23 at 0800 2011 (Given - Provider: Mamta Lai RN) 2029 (Given - Provider: Kel Balderas RN) Insulin Lispro (Humalog) injection 16 Units [...] Inhalation, 2 times daily, First dose on Mon11/30/23 at 0115, Rinse mouth with water after use to reduce aftertaste and incidence of candidiasis. Do not swallow. 0846 (Given - Provider: Starla Marte RN)2031 (Given - Provider: Mamta Lai RN) 0831 (Given - Provider: Santa English RN)2029 (Given - Provider: Kel Balderas RN) 09 (Given - Provider: Romario Luna RN) pancrelipase (Cgo-Vbnh-Lxjl) (Creon) 6000-35647 units per capsule 2 capsule 2 capsule, Oral, 3 times daily with meals, First dose on Mon11/30/23 at 0800, Administer whole with food and [...] Santa English RN)1645 (Given - Provider: Santa English, MARLEY) 0855 (Given - Provider: Romario Luna, MARLEY)1244 [...] RN) 0828 (Given - Provider: Santa English, RN)2150 (Given - Provider: Kel Balderas RN) 0854 (Given - Provider: Romario Luna RN) tamsulosin (Flomax) 24 hr capsule 0.4 mg 0.4 mg, Oral, 2 times daily, First dose on [place] 11/30/23 at 0600, Do not crush, chew, or split. 0518 (Given - Provider: Mamta Lai RN)1709 (Given - Provider: Starla Marte RN) 0829 (Given - Provider: Santa English, MARLEY)1657 (Given - Provider: Santa English RN - Comment: patient prefer to take with dinner) 0854 (Given - Provider: Romario Luna RN) tiotropium (Spiriva Respimat) 2.5 MCG/ACT inhaler 2 puff 2 puff, Inhalation, Daily, First dose on [place] 11/30/23 at 0900 0846 (Given - Provider: Starla Marte RN) 0831 (Given - Provider: Santa English, RN) 0900 (Given - Provider: Romario Luna, RN) Continuous Medication Order 12/03/2023 12/04/2023 12/05/2023 sodium chloride 0.9 % infusion 50 mL/hr, IntraVENous, Continuous, Starting on [place] 11/30/23 at 0115 0614 (New Bag - Provider: Mamta Lai, RN)0842 (Rate/Dose Verify - Provider: Starla Marte RN) 0241 (New Bag - Provider: Mamta Lai, RN) PRN Medication Order 12/03/2023 12/04/2023 12/05/2023 [...] Lai RN)1258 (Given - Provider: Santa English, RN) 0854 (Given - Provider: Romario Luna, MARLEY) albuterol (2.5 MG/3ML) 0.083% nebulizer solution 2.5 [...] at 0831 0846 (Given - Provider: Starla Marte RN)2012 (Given - Provider: Mamta Lai RN) naloxone (Narcan) injection 0.4 mg 0.4 mg, IntraVENous, Every 5 min PRN, opioid reversal, respiratory depression, Starting on [place] 11/30/23 at 1329, +++ For RR <10, pinpoint pupils, over sedation for opioid reversal - MUST notify virtualization consultant provider immediately after first dose, may give [...] RN) 165 (Given - Provider: Santa English RN)2230 (Given - Provider: Kel Balderas RN) 0589 (Given - Provider: Kel Balderas RN) polyethylene [...] Rodriguez RN) 0906 (Given - Provider: Arcadio Naylor, MARLEY) 0937 (Given - Provider: Tish Diaz, RN) [...] Brink RN) 09 (Given - Provider: Arcadio Naylor, MARLEY)2119 (Given - Provider: Landy Brink RN) 0944 (Given - Provider: Tish Diaz, MARLEY) guaiFENesin (Mucinex) 12 hr tablet 600 mg 600 mg, Oral, 2 times daily, First dose on [place] 05/30/24 at 1145, Administer with plenty of fluids to ensure proper action. Do not crush, chew, or split. 0829 (Given - Provider: Ghassan Rodriguez RN)220 (Given - Provider: Landy Brink RN) 09 (Given - Provider: Arcadio Naylor, MARLEY)212 (Given - Provider: Landy Brink, MARLEY) 0900 (Not Given - Provider: Tish Diaz RN - Reason: Medication not available) insulin glargine (Lantus) injection 44 Units 44 Units, SubCUTAneous, Nightly, First dose on [place] 05/30/24 at 2100 2206 (Given - Provider: Landy Brink RN) 2120 (Given - Provider: Landy Brink RN) Insulin [...] (after last modification) on Mon06/01/24 at 1700 0829 (Given - Provider: Ghassan [...] daily, First dose (after last modification) on [place] 06/02/24 at 0800 0936 (Given - Provider: Nancy Rios RCP)1313 (Given - Provider: Nancy Rios RCP) ipratropium-albuterol (Duo-Neb) 0.5-2.5 mg/3 mL nebulizer solution 3 mL 3 mL, Nebulization, 3 times daily, First dose (after last modification) on [place] 06/02/24 at 2000 2050 (Given - Provider: [...] RN)2207 (Given - Provider: Landy Brink, MARLEY) 0909 (Given - Provider: Arcadio Naylor, MARLEY)2119 (Given - Provider: Landy Brink, MARLEY) pancrelipase (Kxs-Cpvy-Mmuq) (Creon) 53000-480453 units per capsule 1 capsule 1 capsule, [...] on Mon06/09/24 at 0900, For 2 doses predniSONE (Deltasone) tablet 20 mg(Linked Group 1) 20 mg, Oral, Daily, First dose on Mon06/07/24 at 0900, For 2 doses predniSONE (Deltasone) tablet 30 mg(Linked Group 1) 30 mg, Oral, Daily, First dose on Mon06/05/24 at 0900, For 2 doses predniSONE (Deltasone) tablet 40 mg (CANCELED) 40 mg, Oral, Daily, First dose on Mon06/02/24 at 0900 0829 (Given - Provider: Ghassan Rodriguez RN) 0906 (Given - Provider: Arcadio Naylor RN) 0937 (Given - Provider: Tish Diaz RN) pregabalin (Lyrica) capsule 150 mg 150 mg, Oral, 2 times daily, First dose on [place] 05/30/24 at 1145 0829 (Given - Provider: Ghassan Rodriguez RN)220 (Given - Provider: Landy Brink RN) 09 (Given - Provider: Arcadio Naylor RN)2119 (Given - Provider: Landy Brink, MARLEY) 0937 (Given - Provider: Tish Diaz, MARLEY) tamsulosin (Flomax) 24 hr capsule 0.4 [...] Starting on [place] 05/30/24 at 1134, +++notify virtualization consultant provider if used+++ ondansetron (Zofran) injection 4 [...] Ash RN) 0846 (Given - Provider: Isael Ash RN)1155 (Given - Provider: Isael Ash RN)1729 [...] 2133 (Given - Provider: Fariba Wilder, MARLEY) 2036 (Given - Provider: Fariba Wilder RN) 2100 (Canceled Entry - Provider: Automatic Discharge Provider - Comment: Automatically canceled at discontinue of medication order) mometasone-formoterol (Dulera 100) 100-5 MCG/ACT inhaler 2 puff 2 puff, Inhalation, 2 times daily, First dose on Mon07/15/24 at 2000, Rinse mouth with water after use to reduce aftertaste and incidence of candidiasis. Do not swallow. 2132 (Given - Provider: aFriba Wilder RN) 0903 (Given - Provider: Isael Ash RN)1999 (Given - Provider: Fariba Wilder RN) 0845 (Given - Provider: Isael Ash RN)1999 (Canceled Entry - Provider: Automatic Discharge Provider - Comment: Automatically canceled at discontinue of medication order) pancrelipase (Iib-Sfyv-Xzqm) (Creon) 6000-57283 units per capsule 2 capsule 2 capsule, [...] Duke RN)2355 (New Bag - Provider: Fariba Wilder RN) sodium chloride 0.9 % infusion (CANCELED) 100 mL/hr, IntraVENous, Continuous, Starting on Mon07/15/24 at 1510 1529 (New Bag - Provider: Baljeet Duke RN)2355 (New Bag - Provider: Fariba Wilder RN) 1121 (Continued by Anesthesia - Provider: Jimbo Avitia APRN - TRAVEL MED SURG RN) PRN Medication Order 07/15/2024 07/16/2024 07/17/2024 acetaminophen [...] a Fluress shortage, administer 1 drop of Convoy-Fluor into both eyes as directed for applanation [...] BE BASED ON THE PRIMARY CLINICAL RECORDS. [facility]. provides no warranty or guarantee of the accuracy or completeness of information in this document.
[2024-12-23 09:35] LABS: Hematocrit 36.8 % (40-54); Hemoglobin 11.1 g/dL (13.0-16.5); Mean Corp Hgb Conc 30.2 g/dL (32-36); Mean Corpuscular Volume 82.9 fL (80-94); Mean Platelet Vol. 9.8 fl (6.2-12.0); POSITIVE MORPHOLOGY YES; Platelet Count 229 K/mm3 (150-450); RBC Distribution Width CV 23.3 % (11.6-14.6); RBC Distribution Width SD 70.9 fl (35.1-43.9); Red Blood Count 4.44 M/mm3 (4.6-6.2); White Blood Count 5.0 K/mm3 (4.4-11.0)
[2024-12-23 10:26] LABS: Scan Indicated on CBC? Y/N YES- FLAGS NOTED
[2024-12-23 10:55] LABS: AST(SGOT) 7 U/L (<=37); Alanine Aminotransfer ALT/SGPT 6 U/L (<=46); Albumin, Serum 3.5 g/dL (3.4-4.8); Alkaline Phosphatase 97 U/L (40-129); Anion Gap 14 (5-15); BUN 17 mg/dL (4-19); BUN/Creat Ratio 15.6 RATIO (10-20); Bilirubin, Direct 0.12 mg/dL (0.00-0.30); Calcium,Total 8.9 mg/dL (7.6-11.0); Carbon Dioxide 22.6 mmol/L (21.0-32.0); Chloride 107 mmol/L (98-108); Cholesterol 86 mg/dL (<=200); Globulin 2.6 g/dL (2.2-4.2); Glucose 143 mg/dL (70-99); Low Density Lipoprotein Calc. 28 mg/dL; Potassium 3.6 mmol/L (3.3-5.1); Triglycerides 77 mg/dL; Very Low Density Lipoprotein 15 mg/dL (5-40); cholesterol:hdl ratio screen 1.99
== END ==
LOC: OLS.ACW100 04:00
PROVIDERS: Referring Provider Family Medicine; Visit Provider Family Medicine
DX: S09.90XD Unspecified injury of head, subsequent encounter (principal); J96.02 Acute respiratory failure with hypercapnia; M51.362 Other intervertebral disc degeneration, lumbar region with discogenic back pain and lower extremity pain
CPT/HCPCS: 36415; 80048; 80061; 80076; 83036; 84443; 85027

== ENCOUNTER → 2025-01-16 03:30 | Outpatient (REF) | payer MEDICAID, SELFPAY | LOC: OLS.ACW200 03:30 | PROVIDERS: Visit Provider Family Medicine | DX: S09.90XD Unspecified injury of head, subsequent encounter (principal); J96.02 Acute respiratory failure with hypercapnia; M51.362 Other intervertebral disc degeneration, lumbar region with discogenic back pain and lower extremity pain | CPT/HCPCS: 87086; 87088 ==

== ENCOUNTER → 2025-01-21 03:00 | Outpatient (REF) | payer MEDICAID, SELFPAY | LOC: OLS.ACW100 03:00 | PROVIDERS: Referring Provider Family Medicine; Visit Provider Family Medicine | DX: S09.90XD Unspecified injury of head, subsequent encounter (principal); J96.02 Acute respiratory failure with hypercapnia; M51.362 Other intervertebral disc degeneration, lumbar region with discogenic back pain and lower extremity pain | CPT/HCPCS: 87086; 87088 ==

== ENCOUNTER → 2025-01-28 05:00 | Outpatient (REF) | payer MEDICAID, SELFPAY ==
[2025-01-28 09:41] LABS: Cholesterol 85 mg/dL (<=200); Low Density Lipoprotein Calc. 15 mg/dL; Triglycerides 155 mg/dL; Very Low Density Lipoprotein 31 mg/dL (5-40); cholesterol:hdl ratio screen 2.17
== END ==
LOC: OLS.ACW200 05:00
PROVIDERS: Visit Provider Family Medicine
DX: S09.90XD Unspecified injury of head, subsequent encounter (principal); J96.02 Acute respiratory failure with hypercapnia; M51.362 Other intervertebral disc degeneration, lumbar region with discogenic back pain and lower extremity pain
CPT/HCPCS: 36415; 80061

== ENCOUNTER → 2025-03-24 | Outpatient (REF) | payer MEDICAID, SELFPAY ==
--- OUTSIDE RECORDS SUMMARY | 2025-03-24 04:18 | XMS RPT_ITS | CCD ---
Author Organization [facility] Care Team Providers Care Laboratory Coordinator Name Role Phone PROVIDER, UNKNOWN Unavailable Unavailable [...] Provider Chelle Troncoso Primary Care Provider [phone] Chelle Troncoso Primary Care Provider [phone] Chelle Troncoso Primary Care Provider [phone] CHELLE TRONCOSO Primary Care Unavailab MARIXA Mittal Attending Unavaila ble SELF Referring Unavailable Unavailable Primary Care Provider Unavailshantel Arriaza DMD, MD, Rony Unavailable [phone] KLEVER ÁLVAREZ Referring Unavailable PROVIDER, UNKNOWN Admitting Unavailable CINTHYA, RONY Attending Unavailable PROVIDER, UNKNOWN Admitting Unavailable CINTHYA, RONY Attending Unavailable Unavailable Primary Care Provider UnavailChelle Kate MD Primary Care Provider Jose Martin Marion Primary Care Provider [phone] Pepe Marino MD Unavailable Chelle Mendez Attending Provider UnavailLavinia GARCIA, Chelle Referring Provider UnavailChelle [place] Attending Provider UnavailLavinia GARCIA, Chelle Referring Provider Unavailshantel Hair MD, Chema Rosales Unavailable Sultan MARTINEZ, Assjovi Unavailable Chelle Troncoso MD Unavailable CHELLE TRONCOSO Primary Care Unavailable HAYDEE WILLIS Admitting Unavailable MANJINDER SANCHEZ Attending Unavailable CHELLE TRONCOSO Primary Care Unavailable BETHANY SANDHU Admitting Unavailable DELISA COURTNEY Attending Unavailable JARET BLACKWOOD Consulting Unavailable ADAL PRESCOTT Consulting Unavailable PEPE MARINO Attending Unavailable CHELLE TRONCOSO Primary Care Unavailable PEPE MARINO Attending Unavailable PEPE MARINO Referring Unavailable CHELLE TRONCOSO Primary Care Unavailable PEPE MARINO Attending Unavailable CHELLE TRONCOSO Primary Care Unavailable SUZY CORCORAN Attending Unavailable CHELLE TRONCOSO Primary Care Unavailable CHELLE TRONCOSO Primary Care Unavailable CHE ALEGRIA Attending Unavailable CHE ALEGRIA Referring Unavailable CHELLE TRONCOSO Primary Care Unavailable CHE ALEGRIA Attending Unavailable CHELLE TRONCOSO Primary Care Unavailable PEPE MARINO Attending Unavailable CHELLE TRONCOSO Primary Care Unavailable Thea GARCIA, Chelle Attending Unavailable Thea GARCIA, Chelle Referring Unavailable Thea GARCIA, Chelle Attending Unavailable Thea GARCIA, Chelle Attending Unavailable Thea GARCIA, Chelle Referring Unavailable Thea GARCIA, Chelle Attending Unavailable Thea GARCIA, Chelle Attending Unavailable Thea GARCIA, Chelle Referring Unavailable Thea GARCIA, Chelle Attending Unavailable Thea GARCIA, Cehlle Attending Unavailable Thea GARCIA, Chelle Attending Unavailable [...] Translations: [PENICILLINS] Drug Allergy 09-05-19 24 [facility] Rep[facility] Tetracyclines (antibiotic) (1 source) Tetracycline; Translations: [TETRACYCLINE] Drug Allergy 09-05-19 24 [facility] (4 sources) Oxytetracycline; Translations: [OXYTETRACYCLINE] Drug Allergy 12-27-19 17 Unknown [facility] (20 sources) Penicillins; Translations: [PENICILLINS] Drug Allergy 10-24-19 15 Unknown, Other (See Comments) [facility] Work Phone: (3 sources) Oxytetracycline Drug Allergy 02-05-20 15 Other (See Comments) [facility] (3 sources) Tetracyclines & Related Propensity to adverse reactions to drug 09-07-[address] [facility] (20 sources) Tetracycline (class of antibiotic) Drug Intolerance 02-05-20 15 [facility] (3 sources) Tetracycline Drug Allergy 09-05-19 24 [facility] (1 source) Penicillin G Drug Allergy 11-08-19 17 [facility] (1 source) Tetracycline Drug Allergy 05-29-19 19 [facility] (1 source) TERAMYACIN Drug allergy (disorder) 11-08-19 17 [facility] Medications Current Medications Medication Drug Class(es) Dates Sig (Normalized) Sig (Original) atorvastatin 80 mg oral tablet (20 sources) HMG-CoA Reductase Inhibitor Start: 07-29-2021 End: 07-17-2024 take 1 tablet by mouth in the morning atorvastatin (Lipitor) 80 MG tablet Take 80 mg by mouth in the morning. 07/29/2021 Active Comment on above: Take 1 tablet by [facility] once daily. atropine sulfate 0.025 mg / diphenoxylate hydrochloride [...] mouth once a day active Galina Keene DERMATOLOGY PHYSICIAN ASSISTANT [facility] [place] carboxymethylcellulose sodiu m 5 mg/ml ophthalmic solution [...] oral capsule (2 sources) Cephalosporin Antibacterial Start: 2023 End: 2023 take 1 capsule by mouth twice daily cefdinir (Omnicef) 300 MG capsule Take 1 capsule (300 mg) by mouth 2 times daily for 3 days. 6 capsule 12/05/2023 12/08/2023 Active cephalexin 500 mg oral capsule (3 sources) Cephalosporin Antibacterial Start: 2023 cephALEXin (KEFLEX) 500 MG capsule 08/21/2023 Active chlorhexidine gluconate 1.2 mg/ml mouthwash (2 sources) Start: 2023 End: 2023 chlorhexidine (Peridex) 0.12 % oral solution Take 15 mL by mouth 2 times daily for 7 days. Swish for 30 seconds and lightly spit. Do not swallow 473 mL 3 09/14/2023 Active Continuous Glucose Clinical Trial Assistant (FreeStyle [place]) (3 sources) Start: 2023 Continuous Glucose Clinical Trial Assistant (FreeStyle [place]) 07/24/2023 Active diphenhydrAMINE hydrochloride 25 mg oral capsule (3 sources) Histamine-1 Receptor Antagonist Start: 2023 Banophen 25 MG capsule 08/21/2023 Active docusate sodium 100 mg oral capsule (6 sources) take 1 capsule by mouth twice daily Docusate Sodium (DSS) 100 MG CAPS Take 100 mg by mouth 2 times daily. Active 0.5 ml dulaglutide 3 mg/ml auto-injector (2 sources) GLP-1 Receptor Agonist inject 1.5 mg by subcutaneous injection every week dulaglutide (Trulicity) 1.5 MG/0.5ML pen-injector Inject 1.5 mg under the skin 1 (one) time per week. Active empagliflozin 10 mg oral tablet (20 sources) Sodium-Glucose Cotransporter 2 Inhibitor Start: 2023 End: 2024 Jardiance 10 MG tablet 07/18/2023 Active take 25 mg by mouth once daily e mpagliflozin (Jardiance) 25 MG Take 25 mg by mouth daily. Active ezetimibe 10 mg oral tablet (20 sources) Dietary Cholesterol Absorption Inhibitor Start: 08-26-2021 End: 07-17-2024 take 1 tablet by mouth once daily ezetimibe (Zetia) 10 MG tablet Take 10 mg by mouth Nightly. 08/26/2021 Active Ezetimibe (ZETIA PO) Take by mouth 0 Active famotidine 20 mg oral tablet (20 [...] mg by mouth 2 times daily. Active finasteride 5 mg oral tablet (20 sources) 5-alpha Reductase Inhibitor Start: 08-26-2021 End: 07-17-2024 take 1 tablet by mouth in the morning finasteride (Proscar) 5 MG tablet Take 5 mg by mouth in the morning. 08/26/2021 Active 60 actuat fluticasone propionate 0.25 mg/actuat / salmeterol 0.05 mg/actuat dry powder inhaler (20 sources) Corticosteroid, beta2-Adrenergic Agonist Start: 01-21-2023 Advair Diskus 250-50 MCG/ACT aerosol powder 01/21/2023 Active take 1 puff(s) by inhalation onc e daily Advair Diskus 250 mcg-50 mcg/dose powder for inhalation Inhale 1 puff as directed once a day active Galina Keene LPN [facility] [place] folic acid 1 mg oral tablet (3 [...] needed for pain active Galina Keene LPN [facility] [place] Incontinence Supply Disposable (DEPEND UNDERWEAR LARGE/XL) MISC (3 sources) Start: 05-02-2017 Incontinence Supply Disposable (DEPEND UNDERWEAR LARGE/XL) [facility] [place] [facility] uad 1 Package [...] 07/10/2017 Active menthol 0.04 mg/mg topical gel (20 sources) Menthol, Topical Analgesic, (Biofreeze Cool The Pain) 4 % gel Apply topically every 12 hours as needed (lower back). Active 24 hr metoprolol succinate 25 mg extended release oral tablet (5 sources) beta-Adrenergic Sonny Start: 01-27-2025 End: 01-27-2026 take 1 tablet by mouth once daily metoprolol succinate XL (Toprol-XL) 25 MG 24 hr tablet Take 1 tablet (25 mg) by mouth daily. Do not crush or chew. 90 tablet 3 01/27/2025 01/27/2026 Active Start: 08-16-2017 take 0.5 tablet by m outh twice daily metoprolol tartrate (LOPRESSOR) 25 MG tablet Take 0.5 tablets by mouth 2 times daily 60 tablet 3 08/16/2017 Active 24 hr nicotine 0.875 mg/hr transdermal system (3 sources) Cholinergic Nicotinic Agonist apply 1 dose transdermal route every twenty-four hours nicotine (NICODERM CQ) 21 MG/24HR Place 1 patch onto the skin every 24 hours 0 Active nystatin 687874 unt/ml topical cream (20 sources) Polyene Antifungal Start: 11-09-19 23 nystatin (Mycostatin) cream 11/08/2022 Active pantoprazole 40 mg delayed release oral tablet (20 sources) Proton Pump Inhibitor Start: 07-18-19 End: [...] Start: 07-14-2017 take 2 tablets by mo ndh once daily before breakfast pantoprazole (PROTONIX) 20 [...] 1 Drop ( AK-DILATE, LESTER-SYNEPHRINE) polymyxin b 08181 unt/ml / trimethoprim 1 mg/ml ophthalmic solution (3 sources) Dihydrofolate Reductase Inhibitor Antibacterial, Polymyxin-class Antibacterial Start: 08-03-2023 trimethoprim-polymyxin b (POLYTRIM) 48577-5.1 UNIT/ML-% ophthalmic solution 08/03/2023 Active microencapsulated potassium [...] actuat umeclidinium 0.0625 mg/actuat dry powder inhaler (20 sources) Anticholinergic Start: 04-29-2024 take 1 puff(s) by inhalation once daily Incruse Ellipta 62.5 MCG/ACT inhalation Inhale 1 puff daily. 04/29/2024 Active VITAMIN D (ERGOCALCIFEROL) (ERGOCALCIFEROL) 1.25 MG (31052 UT) CAPS (1 source) take 1 capsule by mouth every week Vitamin D2 1,250 mcg (50,000 unit) capsule Take 1 capsule by mouth once a week Fridays active Galina Keene LPN [facility] [place] Completed/Discontinued Medications [...] needed for pain active Galina Keene LPN [facility] [place] take 2 tablets by mo uth every [...] hours PRN, severe pain (7-10), Starting on [facility] 11/30/23 at 1320, Maximum dose of acetaminophen [...] time s daily PRN, wheezing, Starting on [facility] 11/30/23 at 1545 Start: 07-28-2021 End: 01-27-2025 albuterol (2.5 MG/3ML) 0.083 % nebulizer solution Inhale 2.5 mg. 07/28/2021 01/27/2025 Discontinued (Med list cleanup) Start: 07-28-2021 take 2.5 mg by inhal ation every two hours as needed albuterol (PROVENTIL) 2.5 mg /3 mL (0.083 %) nebulizer solution Use 3 mL via nebulizer every 2 hours as needed for wheezing/shortness of breath. 0 07/28/2021 Active Start: 05-06-2019 albuterol (PRO VENTIL) nebulizer solution 2.5 mg Start: 11-24-2016 End: 01-27-2025 take 2 puff(s) by inhalation every six hours as needed albuterol 108 (90 Base) MCG/ACT inhaler Inhale 2 puffs every 6 hours as needed. 11/24/2016 01/27/2025 Discontinued (Med list cleanup) Comment on above: Use 3 mL via nebuliz er every 2 hours as needed for wheezing/shortness of breath. albuterol 0.833 mg/ml / ipratropium bromide 0.167 mg/ml inhalation solution (10 sources) Anticholinergic, beta2-Adrenergic Agonist Start: 06-02-2024 End: 06-04-2024 3 mL, Nebulization, 3 times daily, First dose (after last modification) on [place] 06/02/24 at 2000 Start: 06-02-2024 End: 06-02-2024 3 mL, Nebulization, 4 times daily, First dose (after last modification) on [place] 06/02/24 at 0800 Start: 05-30-2024 End: 06-02-2024 3 mL, Nebulization, Every 4 hours, First dose on [facility] 05/30/24 at 1145 Start: 05-30-2024 End: 05-30-2024 3 mL, Nebulization, Once, On [facility] 05/30/24 at 0855, For 1 dose Start: 07-28-2021 take 3 mL by inhalat ion every four hours ipratropium-albuterol (DUONEB) 0.5 mg-3 mg(2.5 mg base)/3 mL nebu Inhale 3 mL as instructed every 4 hours while awake. 0 07/28/2021 Active Comment on above: Inhale 3 mL as instr ucted every 4 hours while awake. amylase 77771 unt / lipase 6000 unt / protease 53697 unt delayed release oral capsule (20 sources) [...] times daily with meals, First dose on [facility] 11/30/23 at 0800, Administer whole with food [...] of water. Start: 04-24-2023 End: 04-24-2023 pancrelipase (Qxh-Ceqr-Gdxz) (Creon) 6000-74164 units per capsule 2 capsule take 42067-18670 [IU ] by mouth three times daily at mealtime pancrelipase, Kwb-Otdu-Pxvv, (Creon) 21453-46022 units capsule Take by mouth 3 times daily (with meals). Active take 1 capsule by [facility] three times daily Creon 12,000-38,000-60,000 unit capsule,delayed release Take 1 capsule by mouth three times a day active Galina Keene LPN [facility] [place] vsbvvdu-aweibf-e rotease (CREON) 36769 units capsule Take by mouth. Active aspirin 81 mg chewable tablet (20 sources) Platelet Aggregation Inhibitor, Nonsteroidal Anti-inflammatory Drug Start: 05-31-2024 End: 06-04-2024 take 81 mg [...] tablet 3 08/16/2017 Active Start: 11-07-2016 End: 07-17-2024 aspirin 81 MG chewable table t Chew 81 mg daily. 08/26/2021 Active bisacodyl 10 mg rectal suppository (9 sources) Stimulant Laxative Start: 11-30-2023 End: 12-05-2023 take 10 mg rectal route every twenty-four hours as needed for constipation Start: 04-20-2018 take 1 tablet by michael th once daily as needed bisacodyl 5 mg tablet,delayed release Take 1 tablet by mouth once a day as needed as directed active Galina Keene LPN [facility] [place] calcium chloride 1 g in sodium chloride [...] blood pressure less than 90 Start: 06-04-2024 End: 01-27-2025 take 0.5 tablet by mouth twice daily at mealtime carvedilol (Coreg) 6.25 MG tablet Take 0.5 tablets (3.125 mg) by mouth 2 times daily (with meals). 30 tablet 3 06/04/2024 01/27/2025 Discontinued (Alternate therapy) Start: 02-22-2023 End: 06-04-2024 take 6.25 mg by mouth twice daily at mealtime 6.25 mg, Oral, 2 times daily with meals, First dose on [place] 05/30/24 at 1700 cefepime (Maxipime) 2,000 mg in [...] needed, low b lood sugar, Starting on [facility] 05/30/24 at 1142, If blood glucose less [...] dose on [place] 11/30/23 at 0800 Start: 04-24-2023 End: 04-24-2023 4 g (1 packet), Oral, 3 time s daily with meals, First dose on 04/24/23 at 0800 cilostazol 50 mg oral tablet (20 sources) Phosphodiesterase 3 Inhibitor Start: 11-30-2023 End: 12-05-2023 take 50 mg by mouth twice daily 50 mg, Oral, 2 times daily, First dose on [place] 11/30/23 at 0115 clindamycin 150 mg oral capsule [...] Sodium (Voltaren) 1 % gel 2 g dicyclomine hydrochloride 10 mg oral capsule (20 sources) Anticholinergic Start: 02-01-2023 End: 01-27-2025 take 1 capsule by mouth three times daily dicyclomine (Bentyl) 10 MG capsule Take 10 mg by mouth 3 times daily. 02/01/2023 01/27/2025 Discontinued (Med list cleanup) Start: 12-20-2016 take 1 capsule by [facility] four times daily dicyclomine (BENTYL) 10 MG capsule Indications: Other irritable bowel syndrome , Generalized abdominal pain Take 1 capsule by mouth 4 times daily 120 capsule 3 12/20/2016 Active 250 ml DOBUTamine 1 mg/ml injection (2 sources) beta-Adrenergic Agonist Start: 07-14-2023 End: 07-15-2023 DOBUTamine (Dobutrex) 250 mg in dextrose 5 % 250 mL infusion (premix) docusate sodium 50 mg / sennosides, senior care 8.6 mg oral tablet (4 sources) Start: [...] (2 times per day), First dose on [facility] 05/30/24 at 1145, Indication of Use: Prophylaxis-DVT/PE [...] once erg ocalciferol (Vitamin D-2) 1.25 MG (73836 UT) capsule Take 1.25 mg by mouth 1 (one) time per week. Every Monday Active fenofibrate 200 mg oral capsule (8 [...] on above: Take 1 capsule by mo [facility] daily with breakfast. fluticasone propionate 0.05 mg/actuat metered dose nasal spray (20 sources) Corticosteroid Start: 11-30-2023 End: 01-27-2025 1 spray, Each Nostril, Daily, First dose on Mon11/30/23 at 0900, Shake gently. Before first use, prime pump (press 6 times until fine spray appears). After use, clean tip and replace cap. take 2 spray(s) nasal route once daily fluticasone propionate 50 mcg/actuation nasal spray,suspension [place] 2 spray into both nostrils once a day active Galina Keene LPN [facility] take 1 spray(s) by i nhalation once daily fluticasone (FLONASE) 50 mcg/act nasal inhaler 1 [place] daily. Active 60 actuat formoterol fumarate 0.005 [...] End: 05-30-2024 40 mg, IntraVENous, Once, On [facility] 05/30/24 at 1015, For 1 dose Start: [...] subcutaneously every night active Galina Keene LPN [facility] Comment on above: Inject [...] dose on Mon04/24/23 at 0800 Start: 08-26-2021 End: 01-27-2025 Insulin Lispro (Humalog) 100 UNIT/ML solution injection Inject 16 Units under the skin in the morning and 16 Units at noon and 16 Units in the evening. 08/26/2021 01/27/2025 Discontinued (Med list cleanup) Start: 08-26-2021 Insulin Lispro (Humalog) 100 UNIT/ML [...] IVPB (2 sources) Start: 05-30-2024 End: 05-30-2024 metFORMIN hydrochloride 500 mg oral tablet (20 sources) Biguanide End: 01-27-2025 take 1 tablet by mouth twice daily at mealtime metFORMIN (Glucophage) 500 MG tablet Take 500 mg by mouth 2 times daily (with meals). 01/27/2025 Discontinued (Med list cleanup) take 1 tablet by mouth twice chicho ly metformin 1,000 mg tablet Take 1 tablet by mouth twice a day active Galina Keene LPN [facility] [place] methylPREDNISolone 40 mg injection (4 sources) Corticosteroid [...] For 5 days, Indications: MRSA Nasal Decolonization nabumetone 500 mg oral tablet (20 sources) Nonsteroidal Anti-inflammatory Drug End: 01-27-2025 nabumetone (Relafen) 500 MG tablet Take 750 mg by mouth 2 times daily. 01/27/2025 Discontinued (Med list cleanup) take 1 tablet by mouth twice chicho ly Relafen DS 1,000 mg tablet Take 1 tablet by mouth twice a day active Galina Keene DERMATOLOGY PHYSICIAN ASSISTANT [facility] [place] take 1 tablet by mouth twice chicho ly nabumetone (Relafen) 500 MG tablet Take 500 mg by mouth 2 times daily. 0 Active take 2 tablets by mouth twice [place] nabumetone (Relafen) 500 MG tablet Take 1,000 mg by mouth 2 times daily. 0 Active 1 ml naloxone hydrochloride 0.4 mg/ml injection [...] PRN, other, Suboptimal echo image, Starting on Mon11/30/23 at 1117, For 1 dose, CV Procedural Medications, Administer via slow IVP for suboptimal echocardiogram enhancement. May administer as divided doses to reach optimal image enhancement Start: 07-14-2023 End: 07-14-2023 perflutren protein A microsp here (Optison) 3 mL in sodium chloride (PF) 0.9 % 10 mL IV syringe polyethylene glycol 3350 11119 mg powder for oral solution (8 sources) [...] Oral, 2 times daily, First dose on 07/15/24 at 2100 Start: 05-30-2024 End: 06-04-2024 take 150 mg by mouth twice daily 150 mg, Oral, 2 times daily, First dose on [place] 05/30/24 at 1145 Start: 11-30-2023 [...] oral capsule (20 sources) alpha-Adrenergic Sonny Start: 11-30-2023 End: 12-05-2023 take 0.4 mg by mouth twice daily 0.4 mg, Oral, 2 times daily, First dose on Mon11/30/23 at 0600, Do not crush, chew, or split. Start: 05-21-2020 End: 07-17-2024 take 1 capsule by mouth once daily tamsulosin (Flomax) 0.4 MG 24 hr capsule Take 0.4 mg by mouth daily. 05/21/2020 Active Start: 05-21-2020 take 1 capsule by [facility] every twenty-four hours in the morning tamsulosin (Flomax) 0.4 MG 24 hr capsule Take 0.4 mg by mouth in the morning and 0.4 mg in the evening. 0 05/21/2020 Active Start: 12-12-2018 End: 04-24-2023 take 0.4 mg by mouth twice daily 0.4 mg, Oral, 2 times daily, First dose on Mon04/24/23 at 0600, Do not crush, chew, or split. 10 actuat tiotropium 0.0025 mg/actuat inhalation spray [...] capsule), Inhalati on, Daily, First dose on 04/24/23 at 0800, Not for oral use. To ensure drug delivery the contents of each capsule should be inhaled twice. take 2 puff(s) by in halation twice daily Spiriva with HandiHaler 18 mcg and inhalation capsules Inhale 2 puff as directed twice a day active Galina Keene LPN [facility] End: 06-04-2024 take 1 capsule by inhalation [...] Chronic Complication of device; implant or graft (5 sources) Arteriosclerosis of coronary artery bypass graft; Translations: [Atherosclerosis of coronary artery bypass graft(s) without angina pectoris] Onset: 5 03-08-2024 Chronic Congestive heart failure; nonhypertensive (7 sources) Heart failure, unspecified; Translations: [Chronic combined systolic and diastolic heart failure] Onset: 8 09-05-2023 Chronic Coronary atherosclerosis and other heart disease (20 sources) Atherosclerotic heart disease of [place] coronary artery with unstable angina pectoris; Translations: [Atherosclerotic heart disease of [place] coronary artery without angina pectoris] Onset: 8 [...] [Hyperlipidemia] Onset: 5 Resolved: 7 08-08-2017 Chronic Disorders of teeth and jaw (4 sources) Carious exposure of pulp ; Translations: [Dental caries, unspecified] Onset: 4 09-14-2023 Episodic Esophageal disorders (20 sources) Gastro-esophageal reflux disease without esophagitis; Translations: [Gastro-esophageal reflux disease with esophagitis] Onset: 6 04-26-2017 Chronic Genitourinary symptoms and ill-defined conditions (8 sources) Unspecified urinary incontinence; Translations: [Urge incontinence [...] lumbar region] Onset: 5 10-25-2024 Episodic Other eye disorders (1 source) Bilateral [...] failure with hypoxia] Onset: 2 09-05-2023 Chronic Retinal detachments; defects; vascular occlusion; and retinopathy [...] back pain and lower extremity pain] Onset: Past or Other Problems Problem Classification Problem [...] Translations: [Anemia, unspecified] Onset: 05-23-2017 05-23-2017 Episodic E Codes: Fall (4 sources) Fall; Translations: [Unspecified fall, initial encounter] Onset: 04-19-2024 11-29-2023 Episodic Esophageal disorders (3 sources) Esophagitis Onset: 10-08-2015 Resolved: 01-09-2017 01-09-2017 Episodic Fluid and electrolyte disorders (4 sources) Dehydration; Translations: [Hyperkalemia] Onset: 09-11-2015 Resolved: 09-13-2015 10-05-2015 Episodic Fracture of lower limb (1 source) Metatarsal bone fracture; Translations: [Displaced fracture of second metatarsal bone, right foot, initial encounter for closed fracture] Onset: 11-16-2016 11-16-2016 Episodic Gastrointestinal hemorrhage (20 sources) Hematemesis; Translations: [Hematemesis] Onset: 07-15-2024 07-15-2024 Episodic Infective arthritis and osteomyelitis (except that caused by tuberculosis or sexually transmitted disease) (3 sources) Acute osteomyelitis of left foot Onset: 12-02-2014 Resolved: 01-09-2017 01-09-2017 Chronic Noninfectious gastroenteritis (20 sources) Colitis; Translations: [Noninfective gastroenteritis and colitis, unspecified] Onset: 05-21-2017 05-21-2017 Episodic Nonspecific chest pain (20 sources) Chest pain, unspecified; Translations: [Other chest pain] Onset: 08-12-2016 Resolved: 01-09-2017 08-06-2017 Episodic Other aftercare (4 sources) director long term care (current) use of insulin; Translations: [director long term care (current) use of insulin] Onset: 11-03-2017 Episodic Other aftercare (2 sources) director long term care (current) use of aspirin; Translations: [director long term care (current) use of aspirin] Onset: 12-17-2017 Episodic Other aftercare (2 sources) USP (current) use of non-steroidal anti-inflammatories (NSAID); Translations: [USP (current) use of non-steroidal non-inflam (NSAID)] Onset: 12-17-2017 Episodic Other aftercare (20 sources) Long-term current use of antibiotic; Translations: [director long term care (current) use of antibiotics] [...] Translations: [Hypotension, unspecified] Onset: 08-07-2017 Episodic Other circulatory disease (1 source) Hemorrhage, not elsewhere classified; Translations: [Hemorrhage, not elsewhere classified] Onset: 11-15-2024 Episodic Other connective tissue disease (2 sources) [...] initial encounter] Onset: 11-29-2023 11-29-2023 Episodic Other liver diseases (3 sources) [...] [Unsteadiness on feet] Onset: 05-24-2024 Episodic Other non-traumatic joint disorders (3 sources) [...] 10-23-2014 01-27-2022 Episodic Other non-traumatic joint disorders (1 source) Pain in left knee; Translations: [Pain in joint, lower leg] Onset: 08-01-2024 10-25-2024 Episodic Other screening for suspected conditions (not mental disorders or infectious disease) (8 sources) Patient encounter status; Translations: [Encounter for screening for malignant neoplasm of colon] Onset: 06-27-2024 Episodic Other upper respiratory disease (3 sources) [...] to unspecified reason] Onset: 01-15-2022 09-05-2023 Episodic Respiratory failure; insufficiency; arrest (adult) (20 sources) Respiratory failure; Translations: [Respiratory failure, unspecified, unspecified whether with hypoxia or hypercapnia] Onset: 07-21-2021 07-28-2021 Episodic Unclassified (4 sources) Physical restraint status; Translations: [Acquired absence of other specified parts of digestive tract] Onset: 08-07-2017 Episodic Urinary tract infections (16 sources) Urinary tract infectious disease; Translations: [Recurrent urinary tract infection] Onset: 09-07-2016 Resolved: 01-09-2017 01-28-2017 Episodic Results Test Name Value Interpretation Reference Range Facility 3602-18-2025 36 PC to facility, spok e with his nurse Barb. Stated that the patient is doing fine. Sometimes he decides to eat and sometimes he will not eat. Denies any cardiac symptoms. [place] [id number] 02-14-2025 36 Called [facility], stated t he nurse was not picking up. Asked for me to call back. [facility] 36on 02-11-2025 36 Weight is fluctuatin g a bit. Does he have HF? Not mentioned in recent office note. [facility] 36 RN from [facility] called t o report pt weight. RN states she is too call if weight gain or loss. 11/18-304 lbs 01/20 297 lbs 01/27 293 lbs 02/03- 298 lbs 02/11-296 lbs Please return her call if needed [phone] and ask for [address]ACH [facility] Progress Noteon 01-28-2025 Progress Note Patient here for Urodynamic testing. Patient was unable to tolerate catheterization. Patient agreeable to stopping the test due to pain with insertion of catheter. UROJET 6 ML [facility] [id number] LOT # [id number] EXPIRES 04/2026 Administered by MARLEY Irizarry Pt tolerated well [facility] 36on 01-27-2025 36 SW the front end developer designer at [facility]. We are canceling the appt on 02/07/25 due to the provider being out of the office. Please call back to reschedule. [facility] Office Visiton 01-27-2025 Follow-up visit [id number] Bethanie Reyes 1955 M Date Provider Department Center 01/27/2025 [id number] RUSHING*[facility] 95 Ar Family History Problem Relation Age of Onset Heart attack Mother 61.00 Heart disease Father Other Brother Comments: accident Coronary artery disease Father Diabetes Father Family Status - Relation Status Age at Mother Father Brother Brother Alive Brother Alive Level of Service:41009 MO OFFICE/OUTPATIENT ESTABLISHED MOD MDM 30 MIN Reason for Visit and Comments: Follow-up [141625] [facility] Progress Noteon 01-27-2025 Progress Note [facility] Cardiology [facility] [address] [facility] [address] Dept: [phone] Dept Visit type: Established : 1955 DATE of SERVICE: 01/27/2025 Chief Complaint: Chief Complaint Patient presents with Follow-up History of Present Illness: James Reyes is a 69 y.o. male who presents today for routine follow-up regarding his coronary artery disease, s/p CABG in 2014 and hyperlipidemia. He now lives at assisted living at [facility] and walks with. He denies chest pain or shortness of breath. He has intermittent palpitations, mostly at night. He is unable to specify how long the symptoms lasted. He has no other constitutional symptoms. He is dose of carvedilol was reduced to 3.125 mg twice daily due to hypotension. Past Medical History: Medical History[1] Past Surgical History Surgical History[2] Family History Family History[3] Social History Social History[4] Allergies: Allergies[5] Medications: Current Medications[6] Review of Systems: Review of Systems Respiratory: Negative for chest tightness and shortness of breath. Cardiovascular: Positive for palpitations (At night when laying down). Negative for chest pain. Musculoskeletal: Positive for gait problem. Neurological: Negative for dizziness and light-headedness. Physical Examination: Vitals: Vitals: 01/27/25 1425 BP: 100/66 BP Location: Right arm Patient Position: Sitting BP Cuff Size: Adult Pulse: 84 SpO2: 94% Height: 6' (1.829 m) Body mass index is 39.74 kg/m?. Physical Exam Constitutional: Appearance: He is obese. HENT: Head: Normocephalic and atraumatic. Nose: Nose normal. Eyes: Extraocular Movements: Extraocular movements intact. Conjunctiva/sclera: Conjunctivae normal. Neck: Vascular: No carotid bruit. Cardiovascular: Rate and Rhythm: Normal rate and regular rhythm. Pulses: Normal pulses. Heart sounds: Normal heart sounds. No murmur heard. No gallop. Pulmonary: Effort: Pulmonary effort is normal. Breath sounds: Normal breath sounds. No wheezing. Abdominal: General: Bowel sounds are normal. Palpations: Abdomen is soft. Musculoskeletal: Right lower leg: No edema. Left lower leg: No edema. Skin: General: Skin is warm and dry. Neurological: General: No focal deficit present. Mental Status: He is alert and oriented to person, place, and time. Psychiatric: Mood and Affect: Mood normal. Behavior: Behavior normal. Laboratory Tests: Lab Results Component Value Date WBC 6.3 07/17/2024 HGB 9.2 (L) 07/17/2024 HCT 30.8 (L) 07/17/2024 MCV 91.4 07/17/2024 PLT 202 07/17/2024 Lab Results Component Value Date GLUCOSE 228 (H) 07/17/2024 CALCIUM 8.7 (L) 07/17/2024 NA 142 07/17/2024 K 4.3 07/17/2024 CO2 20 (L) 07/17/2024 CL 111 (H) 07/17/2024 BUN 28 (H) 07/17/2024 CREATININE 1.09 07/17/2024 Lab Results Component Value Date NA 142 07/17/2024 K 4.3 07/17/2024 CL 111 (H) 07/17/2024 CO2 20 (L) 07/17/2024 BUN 28 (H) 07/17/2024 CREATININE 1.09 07/17/2024 GLUCOSE 228 (H) 07/17/2024 CALCIUM 8.7 (L) 07/17/2024 PROT 5.5 (L) 07/17/2024 BILITOT 0.2 07/17/2024 ALKPHOS 85 07/17/2024 AST 10 07/17/2024 ALT <6 07/17/2024 Lab Results Component Value Date CREATININE 1.09 07/17/2024 CREATININE 1.17 07/16/2024 CREATININE 1.49 (H) 07/15/2024 Lab Results Component Value Date CHOL 108 11/30/2023 CHOL 82 04/24/2023 CHOL 113 04/13/2022 Lab Results Component Value Date TRIG 166 (H) 11/30/2023 TRIG 89 04/24/2023 TRIG 143 04/13/2022 Lab Results Component Value Date HDL 42 11/30/2023 HDL 37 (L) 04/24/2023 HDL 40 04/13/2022 Lab Results Component Value Date LDLCALC 33 11/30/2023 LDLCALC 27 04/24/2023 LDLCALC 44 04/13/2022 NT PRO BNP Date Value Ref Range Status 05/30/2024 533 (H) <125 pg/mL Final Cardiac Tests: EC05/30/24 Last Echo: 11/29/23 Last stress echo test: 07/14/23 Last cardiac catheterization: 08/07/17 Assessment and Plan: 1. Coronary artery disease involving coronary bypass graft of [place] heart without angina pectoris 2. Mixed hyperlipidemia James Reyes has known coronary artery disease, however he denies any chest pain. He is due for another lipid panel for his hyperlipidemia. No additional testing is recommended. Due to the patient's palpitations I will switch from carvedilol to metoprolol succinate due to increased beta-blockade effects and less hypotension. At this point I will hold off with a Holter or event monitor. Tentative follow-up in 3 months with a nurse practitioner. Due to the fact the patient lives in [place] we will try to get him seen in one of the closest facilities. I, Suzy Corcoran MD, furnished ongoing care related to James Reyes for their coronary artery disease, a serious and complex condition. I assume responsibility for the patient's ongoing medical care for this con (more content not included)... [facility] 36on 01-23-2025 36 Called and left msg with admin person to have nurse call us back. When nurse from [facility] return call please inform the nurse that Dr. Marino said the urine result that was faxed to us was contaminated and negative. We will see patient on 01/28 at 1pm for urodynamic test. [facility] 36 Negative [facility] 36 Please review urine culture result scanned under media and advise. Pt has Urodynamic scheduled for 01/28. [facility] 29on 01-20-2025 29 Addended by: PITA ARCOS on: 01/20/2025 12:50 PM Modules accepted: Orders [facility] 36on 01-20-2025 36 Called and spoke roc Amos. Nurse amos said they will repeat urine culture at their facility tomorrow morning and fax us the result. Our fax number provided. [facility] 36 Repeat culture. Rex zazueta. [facility] 36 Urine culture result scanned under media. Looks like specimen is contaminated. Please review result and advise. Pt has Urodynamic scheduled on 01/28. [facility] 36on 01-16-2025 36 Spoke with Conchita fishman [facility] who states Pt had urine culture done yesterday and we should be receiving urine culture result today via fax. Urodynamic scheduled for 01/28 at 1pm and follow up scheduled on 02/07 at 11:50am with Dr. Marino. Address provide to Conchita for both Appt. Pt is in wheelchair but able to ambulate and tranfers by himself per Conchita. [facility] 36 ----- Message from Krystal Santos sent at 01/16/2025 8:36 AM EDT ----- ----- Message ----- From: Pepe Marino MD Sent: 01/14/2025 8:48 AM EDT To: Krystal Ricardo Schedule cmg see me after cmg [facility] 36on 01-14-2025 36 Please coordinate urodynamic scheduling with [facility] 36 Name of caller: Nany reyes Contact phone number: [phone] Relationship to Patient: Kavin FARAH Provider: Dr. Marino Practice: Urology Chief Complaint/Reason for Call: Conchita reviewed the office visit notes from the patient's visit with the provider today. Conchita advised noted that there is to be a CMG scheduled and it stated that "he will call to schedule." Conchita would like clarification that this is going to be scheduled by the office and they will call [facility] to advise of date and time, as she is not sure what a CMG is. Conchita stated that they need two days notice for transportation. Please reach out to Conchita to advise. Best time of day caller can be reached: any Patient advised that office/PCP has 24-48 business hours to return their call: Yes [facility] Office Visiton 01-14-2025 Follow-up visit [id number] Bethanie Reyes 1955 M Date Provider Department Center 01/14/2025 [id number] MARINO [facility] [place] Family History Problem Relation Age of Onset Heart attack Mother 61.00 Heart disease Father Other Brother Comments: accident Coronary artery disease Father Diabetes Father Family Status - Relation Status Age at Mother Father Brother Brother Alive Brother Alive Level of Service:13603 MO OFFICE/OUTPATIENT ESTABLISHED MOD MDM 30 MIN Reason for Visit and Comments: Difficulty Urinating [894324] - Burning, painful, feels air is passing while voiding [facility] Progress Noteon 01-14-2025 Progress Note PVR- 30 mL Normal [facility] Progress Note 01/14/25 Chief Complaint Patient presents with Difficulty Urinating Burning, painful, feels air is passing while voiding Subjective: 12/03/23-urine culture 100k proteus 03/08/24-creat 1.01 bun 22 05/13/24-IOV-inc urge despite flomax and proscar. Noct x 3, hx uti Hx of elevated psa, uti urge inc failed detrol, and vesicare. Hx of large pvr. 05/22/2024-renal ultrasound no mass or hydronephrosis, KUB-not done 07/15/24-cystoscopy, prostate fossa open no TCC 01/14/25-has been on Flomax and Proscar. Burning at urine. 3 pull ups per day. Urge inc. Flow weak Physical Exam No flank mass or tenderness Bladder non tender, non distended Impression Diagnosis Plan 1. Recurrent UTI Urine culture Urine culture 2. Urge incontinence 3. Elevated PSA 4. BPH with lower urinary tract symptoms without urinary obstruction 5. Retention of urine, unspecified Bladder scan Plan Bph Gross hematuria-normal us, cysto no tcc but urine cloudy. Elevated psa Hx uti Urge inc-no obst on cysto likely ngb due to dm Dm [employer] Urine for culture Ab if culture positive Schedule cmg See me after cmg Bladder scan today for pvr Cont proscar and flomax for now Has failed detrol and vesicare Pepe Marino MD 01/14/25 8:48 AM Normal [facility] Relevant diagnostic tests/la boratory data Narrativeon 11-05-2024 Fall risk assessment no [facility] [employer] Work Phone: MEDS REVIEW Documentation of current medications (procedure) [facility] Work Phone: MEDS REVIEWD Medications reviewed without changes [facility] Work Phone: XRAY HX of the right hip on 10/16/2023 at [facility]. Work Phone: Bilirubin Test strip Ql (U)O rdered By: Chelle Troncoso on 10-24-2024 Bilirubin Ql (U) Negative Negative [facility] Ketones Test strip Ql (U)Ord ered By: Chelle Troncoso on 10-24-2024 Ketones Ql (U) Negative Negative [facility] Nitrite Test strip Ql (U)Ord ered By: Chelle Troncoso on 10-24-2024 Nitrite Ql (U) Negative Negative [facility] Protein Test strip Ql (U)Ord ered By: Chelle Troncoso on 10-24-2024 Protein Ql (U) 15 mg/dl High Negative [facility] Urine clarityOrdered By: Costa Troncoso on 10-24-2024 Clarity (U) Cloudy Clear [facility] Urine color determinationOrd ered By: Chelle Troncoso on 10-24-2024 Color (U) Straw Yellow [facility] Urine cultureOrdered By: Costa Troncoso on 10-24-2024 Bacteria identified Cx Nom (U) Mixed Gram Pos & Gram Neg Org Abnormal [facility] Urine glucose detectionOrder ed By: Chelle Troncoso on 10-24-2024 Glucose Ql (U) 1000 mg/dl High Normal [facility] Urine leukocyte esterase det ection by dipstickOrdered By: Chelle Troncoso on 10-24-2024 Leukocyte esterase Test strip Ql (U) 100 /ul High Negative [facility] Urine pHOrdered By: Chelle bucio on 10-24-2024 pH (U) 5.0 [pH] 5.0 - 8.0 [facility] Urine specific gravity measu rementOrdered By: Chelle Troncoso on 10-24-2024 Specific gravity (U) [Rel density] 1.015 1.002-1.030 [facility] Urine urobilinogen measureme ntOrdered By: Chelle Troncoso on 10-24-2024 Urobilinogen Ql (U) Normal mg/dl Normal [facility] 36on 10-15-2024 36 Spoke with RN- I do not see where he has a history of HF . Recently hospitalized with hypoxia, renal insufficiency and hematemesis/UGI bleed. According to RN he likely overeats. Unclear what kinds of foods. Doesn't sound symptomatic except for weight gain. Advised her to educate him on consuming low sodium foods, continue to monitor. They have a warehouse traffic supervisor at the facility- would notify him/her of her ongoing concerns. Normal [facility] 36 PC to [facility], on the he weighed 296. Today he weighs 301.5. Denies the patient having any symptoms, sob, swelling or increased fatigue. Inquired about how much fluid he drinks and his salt intake, '' I don't know what he drinks, he drinks enough. I know he eats a lot of junk. He likes snacks''. Asked if his lungs sounded clear, '' I don't know I don't listen to him''. It does not look like he takes a diuretic, when I asked for confirmation. '' Don't believe so, I'm unsure''. Normal [facility] 36 from [employer] [phone] called to report a 5.5lb weight gain for the patient Normal [facility] Stool gastrointestinal hemog lobin detection by immunologic methodOrdered By: Chelle Troncoso on 10-06-2024 Lower GI hemoglobin IA Ql (Stl) [facility] Stool gastrointestinal hemog lobin detection by immunologic methodOrdered By: Chelle Troncoso on 09-30-2024 Lower GI hemoglobin IA Ql (Stl) [facility] Iron measurement (mass/mass) Ordered By: Chelle Troncoso on 09-25-2024 Iron (Unsp spec) [Mass/Mass] 20 ug/dL Low 65-175 [facility] No Panel InformationOrdered By: Chelle Troncoso on 09-25-2024 Unsaturated Iron Binding Capacity 331 ug/dL 228-428 [facility] Serum or plasma ferritin lauryn surement (mass/volume)Ordered By: Chelle Troncoso on 09-25-2024 Ferritin [Mass/Vol] 12 ng/mL Low 37-417 [facility] Serum or plasma iron saturat ion measurement (mass fraction)Ordered By: Chelle Troncoso on 09-25-2024 Iron saturation [Mass fraction] 6.0 % Low 9-55 [facility] Anion gap in Serum or Plasma Ordered By: Chelle Troncoso on 09-23-2024 Anion gap [Moles/Vol] 10 mmol/L 5-15 [facility] BUN/creatinine ratioOrdered By: Chelle Troncoso on 09-23-2024 Urea nitrogen/Creatinine [Mass ratio] 17.0 mg/mg 10-20 [facility] Bilirubin directOrdered By: Chelle Troncoso on 09-23-2024 Bilirubin.direct [Mass/Vol] 0.09 mg/dL 0.00-0.30 [facility] Bilirubin, totalOrdered By: Chelle Troncoso on 09-23-2024 Bilirubin [Mass/Vol] 0.16 mg/dL 0.00-1.[address] [facility] Calculated very low density lipoprotein (VLDL) cholesterol measurementOrdered By: Chelle Troncoso on 09-23-2024 Calculated very low density lipoprotein (VLDL) cholesterol measurement 13 mg/dL 5-40 [facility] Carbon dioxide, total [Moles /volume] in Central venous bloodOrdered By: Chelle Troncoso on 09-23-2024 CO2 [Moles/Vol] 25.3 mmol/L 21.0-32.0 [facility] Chloride assayOrdered By: Magdalena Troncoso on 09-23-2024 Chloride [Moles/Vol] 107 mmol/L 98-[address] [facility] Erythrocyte distribution wid th ratioOrdered By: Chelle Troncoso on 09-23-2024 Erythrocyte distribution width (RBC) [Ratio] 17.4 % High 11.6-14.6 [facility] Erythrocyte distribution wid th standard deviationOrdered By: Chelle Troncoso on 09-23-2024 Erythrocyte distribution width (RBC) [Ratio] 50.9 fl High 35.1-43.9 [facility] Glomerular filtration rate ( GFR) estimation/1.73 sq m using serum, plasma, or whole bOrdered By: Chelle Troncoso on 09-23-2024 GFR/1.73 sq M.predicted among non-blacks MDRD (S/P/Bld) [Vol rate/Area] 87 mL/min/{1.73_m2} >60 [facility] Comment on above: mL/min/1.73m2 CKD-EP I Creatinine Equation (2020) Hematocrit Auto (Bld) [Volum e fraction]Ordered By: Chelle Troncoso on 09-23-2024 Hematocrit (Bld) [Volume fraction] 30.3 % Low 40-54 [facility] Hemoglobin A1c percentageOrd ered By: Chelle Troncoso on 09-23-2024 HbA1c (Bld) [Mass fraction] 9.7 % High <5.7 [facility] Comment on above: Normal < 5.7 % Predi abetic 5.7 - 6.4 % Diabetic >or= 6.5 % Please note range changes. Hemoglobin measurementOrdere d By: Chelle Troncoso on 09-23-2024 Hemoglobin (Bld) [Mass/Vol] 8.7 g/dL Low 13.0-16.5 [facility] LDL calc ser/plasOrdered By: Chelle Troncoso on 09-23-2024 Cholesterol in LDL [Mass/Vol] 43 mg/dL [facility] Comment on above: Cznapioduj=915-134 m g/dL & Higher Cygi=441 mg/dL or greater Laboratory - Chemistry and C hemistry - challengeOrdered By: Chelle Troncoso on 09-23-2024 AST [Catalytic activity/Vol] 7 U/L <38 [facility] MCV (mean corpuscular volume ) determinationOrdered By: Chelle Troncoso on 09-23-2024 MCV (RBC) [Entitic vol] 81.2 fL 80-94 [facility] Mean corpuscular hemoglobin (MCH) determinationOrdered By: Chelle Troncoso on 09-23-2024 MCH (RBC) [Entitic mass] 23.3 pg Low 27.0-32.0 [facility] Mean corpuscular hemoglobin concentration (MCHC) determinationOrdered By: Chelle Troncoso on 09-23-2024 MCHC (RBC) [Mass/Vol] 28.7 g/dL Low 32-36 [facility] Mean platelet volume determi nationOrdered By: Chelle Troncoso on 09-23-2024 Platelet mean volume (Bld) [Entitic vol] 9.7 fL 6.2-12.0 [facility] Platelet countOrdered By: Magdalena Troncoso on 09-23-2024 Platelets (Bld) [#/Vol] 263 10*3/uL 150-450 [facility] Potassium measurement (mass/ volume)Ordered By: Chelle Troncoso on 09-23-2024 Potassium (Unsp spec) [Mass/Vol] 4.1 mmol/L 3.3-5.1 [facility] RBC Auto (Bld) [#/Vol]Ordere d By: Chelle Troncoso on 09-23-2024 RBC (Bld) [#/Vol] 3.73 10*6/uL Low 4.6-6.2 [facility] Screening total cholesterol/ high density lipoprotein (HDL) cholesterol ratioOrdered By: Chelle Trocnoso on 09-23-2024 Cholesterol.total/Choles terol in HDL [Mass ratio] 2.21 {ratio} [facility] Serum creatinine measurement (mass/volume)Ordered By: Chelle Troncoso on 09-23-2024 Creatinine [Mass/Vol] 0.96 mg/dL 0.70-1.20 [facility] Serum globulin measurementOr dered By: Chelle Troncoso on 09-23-2024 Globulin (S) [Mass/Vol] 2.7 g/dL 2.2-4.2 [facility] Serum glucose measurement (m ass/volume)Ordered By: Chelle Troncoso on 09-23-2024 Glucose [Mass/Vol] 192 mg/dL High 70-99 [facility] Serum or plasma alanine weller otransferase (ALT) measurementOrdered By: Chelle Troncoso on 09-23-2024 ALT [Catalytic activity/Vol] U/L <47 [facility] Serum or plasma albumin william urement (mass/volume)Ordered By: Chelle Troncoso on 09-23-2024 Albumin [Mass/Vol] 3.5 g/dL 3.4-4.8 [facility] Serum or plasma alkaline maritza sphatase measurementOrdered By: Chelle Troncoso on 09-23-2024 ALP [Catalytic activity/Vol] 107 U/L 40-129 [facility] Serum or plasma calcium william urement (mass/volume)Ordered By: Chelle Troncoso on 09-23-2024 Calcium [Mass/Vol] 8.8 mg/dL 7.6-11.0 [facility] Serum or plasma cholesterol in HDL measurement (mass/volume)Ordered By: Chelle Troncoso on 09-23-2024 Cholesterol in HDL [Mass/Vol] 46 mg/dL >40 [facility] Comment on above: National Cholesterol Education Program (NCEP) guidelines:<40 mg/dL: Low HDL-cholesterol (major risk factor for CHD)>= 60 mg/dL: High HDL-cholesterol (negative risk factor for CHD)HDL-cholesterol is affected by a number of factors, e.g. smoking, exercise, hormones, sex and age. Serum or plasma cholesterol measurement (mass/volume)Ordered By: Chelle Troncoso on 09-23-2024 Cholesterol [Mass/Vol] 102 mg/dL <201 [facility] Comment on above: Cholesterol level, D esirable <200 mg/dLBorderline high cholesterol 200-239 mg/dLHigh cholesterol >=240 mg/dLRecommendations of the NCEP Adult Treatment Panel for the following risk-cutoff thresholds for the [place] population. Serum or plasma urea nitroge n measurement (mass/volume)Ordered By: Chelle Troncoso on 09-23-2024 Urea nitrogen [Mass/Vol] 16 mg/dL 4-19 [facility] Sodium levelOrdered By: Lyle Troncoso on 09-23-2024 Sodium [Moles/Vol] 142 mmol/L 133-145 [facility] TSH DL <= 0.005 mIU/L QnOrde red By: Chelle Troncoso on 09-23-2024 TSH Qn 1.510 uIU/mL 0.300-4.200 [facility] Total proteinOrdered By: Costa Troncoso on 09-23-2024 Protein [Mass/Vol] 6.2 g/dL 5.9-8.4 [facility] Triglycerides measurementOrd ered By: Chelle Troncoso on 09-23-2024 Triglyceride [Mass/Vol] 65 mg/dL <199 [facility] Comment on above: The drugs N-Acetylcy steine and Metamizole may falsely depress this assay. Normal range: <150 mg/dLBorderline High: 150-199 mg/dLHigh: 200-499 mg/dLVery High: >500 mg/dL White blood cell (WBC) count Ordered By: Chelle Troncoso on 09-23-2024 WBC (Bld) [#/Vol] 7.9 10*3/uL 4.4-11.0 [facility] 30on 07-17-2024 30 Problem: Knowledge Deficit Goal: Patient/family/caregive r demonstrates understanding of disease process, treatment plan, [...] maintained or improved Outcome: Adequate for Discharge Normal [facility] 30 Problem: Knowledge Deficit Goal: Patient/family/caregive r demonstrates understanding of disease process, treatment plan, medications, and discharge instructions Outcome: Progressing Problem: Potential for Compromised Skin Integrity Goal: Skin Integrity is Maintained or Improved Outcome: Progressing Goal: Nutritional status is improving Outcome: Progressing Normal [facility] CBC (HEMOGRAM)on 07-17-2024 Erythrocyte distribution width (RBC) [Ratio] 15.9 % High 11.5-15.0 [facility] Comment on above: Performed By: #### L [id number] ####Wall Steamer: CLARE HUGGINS ([phone])[facility] ([facility])[address] [place] [address] Hematocrit (Bld) [Volume fraction] 30.8 % Low 40.0-52.0 [facility] Comment on above: Performed By: #### L AB294 ####Wall Steamer: CLARE HUGGINS ([id number])[facility] ([facility])[address] [place] [address] Hemoglobin (Bld) [Mass/Vol] 9.2 g/dL Low 13.0-18.0 [facility] Comment on above: Performed By: #### L [id number] ####Wall Steamer: CLARE HUGGINS ([phone])[facility] ([facility] [place] [address] MCH (RBC) [Entitic mass] 27.3 pg Normal 26.0-34.0 [facility] Comment on above: Performed By: #### L AB294 ####Wall Steamer: CLARE HUGGINS ([id number])[facility] ([facility])[address] MCHC 29.9 % Low 30.5-36.0 [facility] Comment on above: Performed By: #### L AB294 ####Wall Steamer: CLARE HUGGINS ([id number])[facility] [place] (SB[facility])[address] MCV (RBC) [Entitic vol] 91.4 fL Normal 77.0-99.0 [facility] Comment on above: Performed By: #### L AB294 ####Wall Steamer: CLARE HUGGINS ([id number])[facility] [place] (SB[facility])[address] Platelet mean volume (Bld) [Entitic vol] 9.8 fL Normal 9.0-12.7 [facility] Comment on above: Performed By: #### L [id number] ####Wall Steamer: CLARE HUGGINS ([id number])[facility] [place] (SBHLAB)[address] Platelets (Bld) [#/Vol] 202 10*3/uL Normal 140-440 [facility] Comment on above: Performed By: #### L AB294 ####Wall Steamer: CLARE HUGGINS ([id number])[facility] [place] (SB[facility])[address] RBC (Bld) [#/Vol] 3.37 10*6/uL Low 4.40-5.90 [facility] Comment on above: Performed By: #### L AB294 ####Wall Steamer: CLARE HUGGINS ([id number])[facility] [place] (SBHLAB)[address] [place] [address] [place] WBC (Bld) [#/Vol] 6.3 10*3/uL Normal 3.6-10.7 [facility] Comment on above: Performed By: #### L AB294 ####Wall Steamer: CLARE HUGGINS ([id number])[facility] [place] (SBHLAB)[address] CBC panel Auto (Bld)Ordered By: Amador Saenz on 07-17-2024 Erythrocyte distribution width (RBC) [Ratio] 15.9 % High 11.5 - 15.0 % [facility] Hematocrit (Bld) [Volume fraction] 30.8 % Low 40.0 - 52.0 % [facility] Hemoglobin (Bld) [Mass/Vol] 9.2 g/dL Low 13.0 - 18.0 g/dL [facility] Interpretation and review of laboratory results Abnormal [facility] MCH (RBC) [Entitic mass] 27.3 pg 26. 0 - 34.0 pg [facility] MCHC (RBC) [Mass/Vol] 29.9 % Low 30.5 - 36.0 % [facility] MCV (RBC) [Entitic vol] 91.4 fL 77.0 - 99.0 fL [facility] Platelet mean volume (Bld) [Entitic vol] 9.8 fL 9.0 - 12.7 fL [facility] Platelets (Bld) [#/Vol] 202 10*3/uL 140 - 440 10*3/uL [facility] RBC (Bld) [#/Vol] 3.37 10*6/uL Low 4.40 - 5.9 0 10*6/uL [facility] WBC (Bld) [#/Vol] 6.3 10*3/uL 3.6 - 10.7 10*3/uL [facility] COMPREHENSIVE METABOLIC PANE Cricket 07-17-2024 Albumin [Mass/Vol] 2.6 g/dL Low 3.4-4.8 [facility] Comment on above: Performed By: #### L AB17 ####Wall Steamer: CLARE HUGGINS ([id number])[facility] ([facility])[address] ALP [Catalytic activity/Vol] 85 U/L Normal 40-150 [facility] Comment on above: Performed By: #### L AB17 ####Wall Steamer: CLARE HUGGINS ([id number])[facility] ([facility])[address] ALT [Catalytic activity/Vol] U/L Normal <40 [facility] Comment on above: Performed By: #### L AB17 ####Wall Steamer: CLARE HUGGINS ([id number])[facility] [place] (SB[facility])[address] Anion gap [Moles/Vol] 11 mmol/L Normal 3-13 [facility] Comment on above: Performed By: #### L AB17 ####Wall Steamer: CLARE HUGGINS ([id number])[facility] (SB[facility])[address] AST [Catalytic activity/Vol] 10 U/L Normal <34 [facility] Comment on above: Performed By: #### L AB17 ####Wall Steamer: CLARE HUGGINS ([id number])[facility] [place] (HLAB)[address] Bilirubin [Mass/Vol] 0.2 mg/dL Normal <1.2 [facility] Comment on above: Performed By: #### L AB17 ####Wall Steamer: CLARE HUGGINS ([id number])[facility] (SB[facility])[address] Calcium [Mass/Vol] 8.7 mg/dL Low 8.8-10.0 [facility] Comment on above: Performed By: #### L AB17 ####Wall Steamer: CLARE HUGGINS ([id number])[facility] [place] (SB[facility])[address] Chloride [Moles/Vol] 111 mmol/L High 98-107 [facility] Comment on above: Performed By: #### L AB17 ####Wall Steamer: CLARE HUGGINS ([id number])[facility] [place] (SB[facility])[address] CO2 [Moles/Vol] 20 mmol/L Low 23-31 [facility] Comment on above: Performed By: #### L AB17 ####Wall Steamer: CLARE HUGGINS ([id number])[facility] [place] (SBHLAB)[address] Creatinine [Mass/Vol] 1.09 mg/dL Normal 0.72-1.25 [facility] Comment on above: Performed By: #### L AB17 ####Wall Steamer: CLARE HUGGINS ([phone])[facility] [place] (SB[facility])[address] [place] [address] [place] GLOMERULAR FILTRATION RATE ML/MIN/1.73 SQ M.PREDICTED 74.4 mL/min/1.73m*2 Normal >60.0 [facility] Comment on above: Result Comment: Calc ulation based on the Chronic Kidney Disease Epidemiology Collaboration (CKD-EPI) equation refit without adjustment for race Performed By: #### L AB17 ####Wall Steamer: CLARE HUGGINS ([id number])[facility] [place] ([facility])[address] Glucose [Mass/Vol] 228 mg/dL High 82-115 [facility] Comment on above: Performed By: #### L AB17 ####Wall Steamer: CLARE HUGGINS ([id number])[facility] [place] ([facility])[address] Potassium [Moles/Vol] 4.3 mmol/L Normal 3.5-5.1 [facility] Comment on above: Result Comment: [facility] potassium values may be up to 0.5 mmol/L lower than serum values. Performed By: #### L AB17 ####Wall Steamer: CLARE HUGGINS ([id number])[facility] [place] (SB[facility])[address] [place] [address] [place] Protein [Mass/Vol] 5.5 g/dL Low 6.4-8.3 [facility] Comment on above: Performed By: #### L AB17 ####Wall Steamer: CLARE HUGGINS ([id number])[facility] [place] (SB[facility])[address] [place] [address] [place] Sodium [Moles/Vol] 142 mmol/L Normal 136-145 [facility] Comment on above: Performed By: #### L AB17 ####Wall Steamer: CLARE WINTERDaniloKRISTYN ([id number])[facility] (SB[facility])[address] Urea nitrogen [Mass/Vol] 28 mg/dL High 9-23 [facility] Comment on above: Performed By: #### L AB17 ####Wall Steamer: CLARE JOSELUIS ([id number])[facility] (SB[facility])[address] Comprehensive metabolic 1998 panelon 07-17-2024 Albumin [Mass/Vol] 2.6 g/dL Low 3.4 - 4.8 g/dL [facility] ALP [Catalytic activity/Vol] 85 U/L 40 - 150 U/L [facility] ALT [Catalytic activity/Vol] U/L NINF - 40 U/L [facility] Anion gap [Moles/Vol] 11 mmol/L 3 - 13 mmol/L [facility] AST [Catalytic activity/Vol] 10 U/L NINF - 34 U/L [facility] Bilirubin [Mass/Vol] 0.2 mg/dL NINF - 1.2 mg/dL [facility] Calcium [Mass/Vol] 8.7 mg/dL Low 8.8 - 10. 0 mg/dL [facility] Chloride [Moles/Vol] 111 mmol/L High 98 - 10 7 mmol/L [facility] CO2 [Moles/Vol] 20 mmol/L Low 23 - 31 mmol/L [facility] Creatinine [Mass/Vol] 1.09 mg/dL 0.72 - 1.25 mg/dL [facility] GFR/1.73 sq M.predicted (S/P/Bld) [Vol rate/Area] 74.4 mL/min - PINF [facility] Comment on above: Calculation based on the Chronic Kidney Disease Epidemiology Collaboration (CKD-EPI) equation refit without adjustment for race Glucose [Mass/Vol] 228 mg/dL High 82 - 115 mg/dL [facility] Interpretation and review of laboratory results Abnormal [facility] Potassium [Moles/Vol] 4.3 mmol/L 3.5 - 5.1 mmol/L [facility] Comment on above: Plasma potassium adriana ues may be up to 0.5 mmol/L lower than serum values. Protein [Mass/Vol] 5.5 g/dL Low 6.4 - 8.3 g/dL [facility] [employer] Sodium [Moles/Vol] 142 mmol/L 136 - 145 mmol/L [facility] [employer] Urea nitrogen [Mass/Vol] 28 mg/dL High 9 - 23 mg/dL [facility] Laboratory - Chemistry and C hemistry - challengeon 07-17-2024 Glucose [Mass/Vol] 253 mg/dL High 70 - 100 mg/dL [facility] Glucose [Mass/Vol] 233 mg/dL High 70 - 100 mg/dL [facility] Glucose [Mass/Vol] 238 mg/dL High 70 - 100 mg/dL [facility] No Panel Informationon 07-17 Interpretation and review of laboratory results Abnormal [facility] [employer] Performed by: [facility], [address] [place] [id number] CLIA ID: [id number] [facility] Interpretation and review of laboratory results Abnormal [facility] Performed by: [facility], [address] [place] [id number] CLIA ID: [id number] [facility] Interpretation and review of laboratory results Abnormal [facility] Performed by: [facility], [address] [place] [id number] CLIA ID: [id number] [facility] Nursing Noteon 07-17-2024 Nursing Note Wound Care consulted for Pressure Injury [...] ointment applied. Prevention Measures in place, including: [place] sheet (obtained) with pillows/wedges, Heels elevated off bed on pillows, Zinc/Moisture Barrier ointment (obtained and applied), Waffle chair cushion (obtain for pt once getting out of bed to chair). Skin Care precaution order set in place. Dietitian vehicle monitor technician involved. PT/OT consult in place. D/W nursing staff. Will continue to follow pt. Please secure chat for any questions or concerns. Kaycee Ricardo RN [facility] Progress Noteon 07-17-2024 Progress Note PHYSICAL THERAPY [facility] Treatment Note Name/MRN: James Reyes ([id number]) Date of : 1955 Age: 68 y.o. Room/Bed: B4459/B4459 B Visit #: 1 out of 7 visits Discharge Recommendation: [facility] Facility Other: TBD at next level of [...] Sr Fall Risk Score: 60 (High Risk) Precautions/Restriction s: Fall Precautions Overall Cognitive Status: WFL Overall [...] Minutes (1 active function) Lashay Murcia PTA [facility] [place] [facility] [place] [address], [place] [address] Patient - James Reyes, Age - 68 y.o. - 1955 Room Number - [id number] B Consulting - Delisa Courtney MD Primary Care Physician - [id number] Date of Admission - 07/15/2024 11:38 AM [...] non compliant per Liliana, his nurse at [facility]. 50 pack year smoking history. Recent [...] Patient Position: Lying) Pulse 58 Temp 36.2 ?C (97.1 ?F) (Temporal) Resp 18 Wt 293 lb (133 kg) SpO2 94% BMI 39.74 kg/m? Pulse Ox: SpO2 Av.8 % Min: 92 [...] Nightly mometasone-formoterol, 2 puff, Inhalation, BID pancrelipase ([id number]), 2 capsule, Oral, TID WC pantoprazole, 40 [...] lobar consolidation is seen. Active Hospital Problem Lis (more content not included)... Normal [facility] Progress Note Nutrition rescreen completed. Chart reviewed. Patient to be monitored and followed by the diet vehicle monitor technician. Normal [facility] 30on 07-16-2024 30 Problem: Knowledge Deficit Goal: Patient/family/caregive r demonstrates understanding of disease process, treatment plan, medications, and discharge instructions Outcome: Progressing Problem: Potential for Compromised Skin Integrity Goal: Skin Integrity is Maintained or Improved Outcome: Progressing Normal [facility] CBC (HEMOGRAM)on 07-16-2024 Erythrocyte distribution width (RBC) [Ratio] 15.9 % High 11.5-15.0 [facility] Comment on above: Performed By: #### L [id number] ####Wall Steamer: CLARE HUGGINS ([id number])[facility] (SBHLAB)[address] Hematocrit (Bld) [Volume fraction] 31.0 % Low 40.0-52.0 [facility] Comment on above: Performed By: #### L [id number] ####Wall Steamer: CLARE HUGGINS ([id number])[facility]ITAL[facility] J[facility]ABERNADINE (SBHLAB)[address] Hemoglobin (Bld) [Mass/Vol] 9.0 g/dL Low 13.0-18.0 [facility] Comment on above: Performed By: #### L [id number] ####Wall Steamer: CLARE HUGGINS ([id number])[facility]ITAL[facility]ER[facility] (SBHLAB)[address] MCH (RBC) [Entitic mass] 26.8 pg Normal 26.0-34.0 [facility] Comment on above: Performed By: #### L AB294 ####Wall Steamer: CLARE HUGGINS ([id number])[facility]ITAL[facility]ER[facility] (SBHLAB)[address] MCHC 29.0 % Low 30.5-36.0 [facility] Comment on above: Performed By: #### L AB294 ####Wall Steamer: CLARE HUGGINS ([phone])[facility] (SBHLAB)[address] MCV (RBC) [Entitic vol] 92.3 fL Normal 77.0-99.0 [facility] Comment on above: Performed By: #### L AB294 ####Wall Steamer: CLARE HUGGINS ([id number])[facility]ITAL[facility] JARABERNADINE (SBHLAB)[address] Platelet mean volume (Bld) [Entitic vol] 10.2 fL Normal 9.0-12.7 [facility] Comment on above: Performed By: #### L AB294 ####Wall Steamer: CLARE HUGGINS ([id number])[facility]ITAL[facility]eto [place] (SBHLAB)[address] Platelets (Bld) [#/Vol] 194 10*3/uL Normal 140-440 [facility] Comment on above: Performed By: #### L [id number] ####Wall Steamer: CLARE HUGGINS ([id number])[facility]OSPITALPrieto [facility] (SBHLAB)[address] RBC (Bld) [#/Vol] 3.36 10*6/uL Low 4.40-5.90 [facility] Comment on above: Performed By: #### L AB294 ####Wall Steamer: CLARE HUGGINS ([id number])[facility]ITALPrieto [facility] ([facility])[address] [place] [address] WBC (Bld) [#/Vol] 7.3 10*3/uL Normal 3.6-10.7 [facility] Comment on above: Performed By: #### L [id number] ####Wall Steamer: CLARE HUGGINS ([phone])[facility]ITALPrieto [facility] ([facility])[address] [place] [address] CBC panel Auto (Bld)on 07-16 Erythrocyte distribution width (RBC) [Ratio] 15.9 % High 11.5 - 15.0 % [facility] Hematocrit (Bld) [Volume fraction] 31 % Low 40.0 - 52.0 % [facility] Hemoglobin (Bld) [Mass/Vol] 9 g/dL Low 13.0 - 18.0 g/dL [facility] Interpretation and review of laboratory results Abnormal [facility] MCH (RBC) [Entitic mass] 26.8 pg 26. 0 - 34.0 pg [facility] MCHC (RBC) [Mass/Vol] 29 % Low 30.5 - 36.0 % [facility] MCV (RBC) [Entitic vol] 92.3 fL 77.0 - 99.0 fL [facility] Platelet mean volume (Bld) [Entitic vol] 10.2 fL 9.0 - 12.7 fL [facility] Platelets (Bld) [#/Vol] 194 10*3/uL 140 - 440 10*3/uL [facility] RBC (Bld) [#/Vol] 3.36 10*6/uL Low 4.40 - 5.9 0 10*6/uL [facility] WBC (Bld) [#/Vol] 7.3 10*3/uL 3.6 - 10.7 10*3/uL [facility] COMPREHENSIVE METABOLIC PANE Cricket 07-16-2024 Albumin [Mass/Vol] 2.5 g/dL Low 3.4-4.8 [facility] Comment on above: Performed By: #### L AB17 ####Wall Steamer: CLARE HUGGINS ([id number])[facility]ITAL[facility] GERALDMYNORN (SBHLAB)[address] ALP [Catalytic activity/Vol] 81 U/L Normal 40-150 [facility] Comment on above: Performed By: #### L AB17 ####Wall Steamer: CLARE HUGGINS ([id number])[facility] (SBHLAB)[address] ALT [Catalytic activity/Vol] 9 U/L Normal <40 [facility] Comment on above: Performed By: #### L AB17 ####Wall Steamer: CLARE HUGGINS ([id number])[facility] [place] (SBHLAB)[address] Anion gap [Moles/Vol] 8 mmol/L Normal 3-13 [facility] Comment on above: Performed By: #### L AB17 ####Wall Steamer: CLARE HUGGINS ([phone])[facility] GERALDMYNORN (SBHLAB)[address] [place] [address] [place] AST [Catalytic activity/Vol] 16 U/L Normal <34 [facility] Comment on above: Performed By: #### L AB17 ####Wall Steamer: CLARE HUGGINS ([id number])[facility] (SBHLAB)[address] Bilirubin [Mass/Vol] 0.3 mg/dL Normal <1.2 [facility] Comment on above: Performed By: #### L AB17 ####Wall Steamer: CLARE HUGGINS ([id number])[facility] [place] (SBHLAB)[address] Calcium [Mass/Vol] 8.5 mg/dL Low 8.8-10.0 [facility] Comment on above: Performed By: #### L AB17 ####Wall Steamer: CLARE HUGGINS ([phone])[facility] [place] (SB[facility]AB)[address] Chloride [Moles/Vol] 111 mmol/L High 98-107 [facility] Comment on above: Performed By: #### L AB17 ####Wall Steamer: CLARE HUGGINS ([id number])[facility] [place] (SB[facility])[address] CO2 [Moles/Vol] 20 mmol/L Low 23-31 [facility] Comment on above: Performed By: #### L AB17 ####Wall Steamer: CLARE HUGGINS ([id number])[facility] [place] (SB[facility])[address] Creatinine [Mass/Vol] 1.17 mg/dL Normal 0.72-1.25 [facility] Comment on above: Performed By: #### L AB17 ####Wall Steamer: CLARE HUGGINS ([id number])[facility] [place] (SB[facility])[address] GLOMERULAR FILTRATION RATE ML/MIN/1.73 SQ M.PREDICTED 68.3 mL/min/1.73m*2 Normal >60.0 [facility] Comment on above: Result Comment: Calc ulation based on the Chronic Kidney Disease Epidemiology Collaboration (CKD-EPI) equation refit without adjustment for race Performed By: #### L AB17 ####Wall Steamer: LCARE HUGGINS ([id number])[facility] [place] (SB[facility])[address] [place] [address] [place] Glucose [Mass/Vol] 186 mg/dL High 82-115 [facility] Comment on above: Performed By: #### L AB17 ####Wall Steamer: CLARE HUGGINS ([id number])[facility] (SBHLAB)[address] Potassium [Moles/Vol] 4.3 mmol/L Normal 3.5-5.1 [facility] Comment on above: Result Comment: [facility] potassium values may be up to 0.5 mmol/L lower than serum values. Performed By: #### L AB17 ####Wall Steamer: CLARE HUGGINS ([id number])[facility] ([facility])[address] Protein [Mass/Vol] 5.5 g/dL Low 6.4-8.3 [facility] Comment on above: Performed By: #### L AB17 ####Wall Steamer: CLARE HUGGINS ([id number])[facility] ([facility])[address] Sodium [Moles/Vol] 139 mmol/L Normal 136-145 [facility] Comment on above: Performed By: #### L AB17 ####Wall Steamer: CLARE HUGGINS ([id number])[facility] ([facility])[address] Urea nitrogen [Mass/Vol] 32 mg/dL High 9-23 [facility] Comment on above: Performed By: #### L AB17 ####Wall Steamer: CLARE HUGGINS ([id number])[facility] (HLAB)[address] Comprehensive metabolic 1998 panelon 07-16-2024 Albumin [Mass/Vol] 2.5 g/dL Low 3.4 - 4.8 g/dL [facility] ALP [Catalytic activity/Vol] 81 U/L 40 - 150 U/L [facility] ALT [Catalytic activity/Vol] 9 U/L NINF - 40 U/L [facility] Anion gap [Moles/Vol] 8 mmol/L 3 - 13 mmol/L [facility] AST [Catalytic activity/Vol] 16 U/L NINF - 34 U/L [facility] Bilirubin [Mass/Vol] 0.3 mg/dL NINF - 1.2 mg/dL [facility] Calcium [Mass/Vol] 8.5 mg/dL Low 8.8 - 10. 0 mg/dL [facility] Chloride [Moles/Vol] 111 mmol/L High 98 - 10 7 mmol/L [facility] CO2 [Moles/Vol] 20 mmol/L Low 23 - 31 mmol/L [facility] Creatinine [Mass/Vol] 1.17 mg/dL 0.72 - 1.25 mg/dL [facility] GFR/1.73 sq M.predicted (S/P/Bld) [Vol rate/Area] 68.3 mL/min - PINF [facility] Comment on above: Calculation based on the Chronic Kidney Disease Epidemiology Collaboration (CKD-EPI) equation refit without adjustment for race Glucose [Mass/Vol] 186 mg/dL High 82 - 115 mg/dL [facility] Interpretation and review of laboratory results Abnormal [facility] Potassium [Moles/Vol] 4.3 mmol/L 3.5 - 5.1 mmol/L [facility] Comment on above: Plasma potassium adriana ues may be up to 0.5 mmol/L lower than serum values. Protein [Mass/Vol] 5.5 g/dL Low 6.4 - 8.3 g/dL [facility] Sodium [Moles/Vol] 139 mmol/L 136 - 145 mmol/L [facility] Urea nitrogen [Mass/Vol] 32 mg/dL High 9 - 23 mg/dL [facility] Consulton 07-16-2024 Consult PULMONOLOGY CONSULT NOTE 07/16/2024 9:50 AM Reason [...] coffee-ground emesis. This reportedly happened twice at [facility] prior to arrival to the ED. [...] on admission. Nasopharyngeal swab was negative for SARS-CoV-2/RSV/influenz a PCR. Of note the patient was admitted [...] hypoventilation as there are other causes of hypoventilation/hyperca pnia in this patient Currently has mixed acute [...] Acute kidney injury (HCC) 09/11/2015 CAD in [place] artery 08/08/2017 COPD (chronic obstructive pulmonary disease) [...] 07/18/2022 Performed by David Chen MD at [facility] OR CORONARY ARTERY BYPASS GRAFT FOOT [...] attack Mother 61.00 Heart disease Father Other ([id number]) Brother accident C (more content not included)... Normal [facility] HEMOGLOBIN AND HEMATOCRIT, B LOODon 07-16-2024 Hematocrit (Bld) [Volume fraction] 28.9 % Low 40.0-52.0 [facility] Comment on above: Performed By: #### L [id number] ####Wall Steamer: CLARE HUGGINS ([phone])[facility] ([facility])[address] [place] [address] Hemoglobin (Bld) [Mass/Vol] 8.5 g/dL Low 13.0-18.0 [facility] Comment on above: Performed By: #### L [id number] ####Wall Steamer: CLARE HUGGINS ([phone])[facility] ([facility])[address] Hematocrit (Bld) [Volume fraction] 30.2 % Low 40.0-52.0 [facility] Comment on above: Performed By: #### L [id number] #### Wall Steamer: CLARE HUGGINS ([phone]) [facility] ([facility]) [address] [place] [address] Hemoglobin (Bld) [Mass/Vol] 9.1 g/dL Low 13.0-18.0 [facility] Comment on above: Performed By: #### L [id number] #### Wall Steamer: CLARE HUGGINS ([phone]) [facility] ([facility] [address] [place] [address] Hemoglobin (Bld) [Mass/Vol]o n 07-16-2024 Hematocrit (Bld) [Volume fraction] 28.9 % Low 40.0 - 52.0 % [facility] Interpretation and review of laboratory results Abnormal [facility] Hemoglobin (Bld) [Mass/Vol]O rdered By: Verónica Kitchen on 07-16-2024 Hematocrit (Bld) [Volume fraction] 30.2 % Low 40.0 - 52.0 % [facility] Interpretation and review of laboratory results Abnormal [facility] IRON AND TIBCon 07-16-2024 IRON BINDING CAPACITY 265 ug/dL Normal 250-450 [facility] Comment on above: Performed By: #### L [id number] ####Wall Steamer: CLARE HUGGINS ([phone])[facility] ([facility])[address] [place] [address] IRON SATURATION 10.6 % Low 20.0-50.0 [facility] Comment on above: Performed By: #### L [id number] ####Wall Steamer: CLARE HUGGINS ([phone])[facility] ([facility])[address] IRON, TOTAL 28 ug/dL Low 65-175 [facility] Comment on above: Performed By: #### L [id number] ####Wall Steamer: CLARE HUGGINS ([phone])[facility] ([facility])[address] Iron and Iron binding capaci ty panelon 07-16-2024 Interpretation and review of laboratory results Abnormal [facility] Iron [Mass/Vol] 28 ug/dL Low 65 - 175 ug/dL [facility] Iron binding capacity [Mass/Vol] 265 ug/dL 250 - 450 ug/dL [facility] Iron saturation [Mass fraction] 10.6 % Low 20.0 - 50.0 % [facility] Laboratory - Chemistry and C hemistry - challengeon 07-16-2024 Glucose [Mass/Vol] 268 mg/dL High 70 - 100 mg/dL [facility] Glucose [Mass/Vol] 296 mg/dL High 70 - 100 mg/dL [facility] Glucose [Mass/Vol] 219 mg/dL High 70 - 100 mg/dL [facility] Glucose [Mass/Vol] 194 mg/dL High 70 - 100 mg/dL [facility] Laboratory - Coagulationon 0 07-16-2024 aPTT Coag (PPP) [Time] 30.2 s 20.0 - 30.5 s [facility] INR Coag (PPP) [Relative time] 1 {INR} 0.9 - 1.1 [facility] Comment on above: Recommended Anticoag ulant [...] - 1 2.0 s [facility] Laboratory - Hematology and Cell countson 07-16-2024 Hemoglobin (Bld) [Mass/Vol] 8.5 g/dL Low 13.0 - 18.0 g/dL [facility] Laboratory - Hematology and Cell countsOrdered By: Verónica Kitchen on 07-16-2024 Hemoglobin (Bld) [Mass/Vol] 9.1 g/dL Low 13.0 - 18.0 g/dL [facility] No Panel Informationon 07-16 Interpretation and review of laboratory results Abnormal [facility] [employer] Performed by: [facility], [address] [place] [address] CLIA ID: [id number] [facility] [employer] [facility] Interpretation and review of laboratory results Abnormal [facility] Performed by: [facility], [address] [place] [address] CLIA ID: [id number] [facility] Interpretation and review of laboratory results Abnormal [facility] Performed by: [facility], [address] [place] [address] CLIA ID: [id number] [facility] Interpretation and review of laboratory results Abnormal [facility] Performed by: [facility], [address] [place] [address] CLIA ID: [id number] [facility] [employer] [facility] Interpretation and review of laboratory results Normal [facility] PROTIME AND APTTon aPTT Coag (Bld) [Time] 30.2 s Normal 20.0-30.5 [facility] Comment on above: Performed By: #### L [id number] ####Wall Steamer: CLARE HUGGINS ([phone])[facility] LO ([facility])[address] [place] [address] INR Coag (PPP) [Relative time] 1.0 {INR} Normal 0.9-1.1 [facility] Comment on above: Result Comment: Lux mmended Anticoagulant Therapy: SEE BELOW ----- INR of 2.0 [...] prevent Myocardial Infarction Performed By: #### L [id number] ####Wall Steamer: CLARE HUGGINS ([phone])[facility] [place] ([facility])[address] PT Coag (PPP) [Time] 11.5 s Normal 9.0-12.0 [facility] Comment on above: Performed By: #### L [id number] ####Wall Steamer: CLARE HUGGINS ([phone])[facility] ([facility])[address] [id number] 07-15-2024 [id number] Per zachary vasquez t [place] [facility] and can return when medically stable. . Normal [facility] BLOOD GAS ARTERIALon 025 AMOUNT OF OXYGEN 6 Normal [facility] Comment on above: Performed By: #### L [id number] ####Wall Steamer: CLARE HUGGINS ([phone])[facility] ([facility])[address] Base excess Calc (Bld) [Moles/Vol] -3.3000 mmol/L Low -3.0-3.0 [facility] Comment on above: Performed By: #### L AB76 ####Wall Steamer: CLARE HUGGINS ([phone])[facility] ([facility])[address] CO2 [Moles/Vol] 24.4 mmol/L Normal 22.0-28.0 [facility] Comment on above: Performed By: #### L [id number] ####Wall Steamer: CLARE HUGGINS ([phone])[facility] ([facility])[address] [place] [address] HCO3 (Bld) [Moles/Vol] 22.9 mmol/L Normal 21.0-27.0 S [facility] Comment on above: Performed By: #### L [id number] ####Wall Steamer: CLARE HUGGINS ([phone])[facility] [place] ([facility])[address] Hemoglobin (Bld) [Mass/Vol] 11.4 g/dL Low Screen only [facility] Comment on above: Performed By: #### L [id number] ####Wall Steamer: CLARE HUGGINS ([phone])[facility] ([facility])[address] OXYGEN SATURATION (%) IN ARTERIAL BLOOD 92.2 % Low 97.0-99.0 [facility] Comment on above: Performed By: #### L [id number] ####Wall Steamer: CLARE HUGGINS ([phone])[facility] ([facility])[address] [place] [address] PCO2 ARTERIAL 46.3 mm Hg Normal 35.0-48.0 [facility] Comment on above: Performed By: #### L AB76 ####Wall Steamer: CLARE HUGGINS ([phone])[facility] ([facility])[address] PH ARTERIAL 7.313 Low 7.350-7.450 [facility] Comment on above: Performed By: #### L AB76 ####Wall Steamer: CLARE HUGGINS ([phone])[facility] ([facility])[address] PO2 ARTERIAL 70.1 mm Hg Low 83.0-108.0 [facility] Comment on above: Performed By: #### L [id number] ####Wall Steamer: CLARE HUGGINS ([phone])[facility] ([facility])[address] [place] [address] SOURCE OF OXYGEN Nasal Cannula (LPM) Normal [facility] Comment on above: Performed By: #### L [id number] ####Wall Steamer: CLARE HUGGINS ([phone])[facility] ([facility])[address] BLOOD TYPE AND SCREEN GELon 07-15-2024 ABO GROUPING A Normal [facility] Comment on above: Performed By: #### L [id number] ####Wall Steamer: CLARE HUGGINS ([phone])[facility] ([facility])[address] RH TYPE IN BLOOD Positive Normal [facility] Comment on above: Performed By: #### L [id number] ####Wall Steamer: CLARE HUGGINS ([phone])[facility] ([facility])[address] Blood type and Crossmatch corby joe (Bld)on 07-15-2024 ABO group Nom (Bld) A [facility] Blood group antibody screen GEL Ql Negative [facility] D Ag Ql (RBC) Positive [facility] Healt h [facility] CBC W Auto Differential pane l (Bld)Ordered By: Arcadio Shelton on 07-15-2024 Basophils (Bld) [#/Vol] 0 10*3/uL 0.0 - 0.2 10*3/uL [facility] Basophils/100 WBC (Bld) 0.2 % 0.0 - 2.0 % [facility] Eosinophils (Bld) [#/Vol] 0 10*3/uL 0.0 - 0.5 10*3/uL [facility] Eosinophils/100 WBC (Bld) 0.3 % 0.0 - 6.0 % [facility] Erythrocyte distribution width (RBC) [Ratio] 15.9 % High 11.5 - 15.0 % [facility] Hematocrit (Bld) [Volume fraction] 33.6 % Low 40.0 - 52.0 % [facility] Hemoglobin (Bld) [Mass/Vol] 10 g/dL Low 13.0 - 18.0 g/dL [facility] [employer] Immature granulocytes (Bld) [#/Vol] 0.1 10*3/uL High NINF - 0.1 10*3/uL [facility] Immature granulocytes/100 WBC (Bld) 0.4 % 0.0 - 2.0 % [facility] Interpretation and review of laboratory results Abnormal [facility] Lymphocytes (Bld) [#/Vol] 1.1 10*3/uL 1.0 - 4.3 10*3/uL [facility] [employer] Lymphocytes/100 WBC (Bld) 8.4 % Low 15.0 - 45.0 % [facility] [employer] MCH (RBC) [Entitic mass] 27 pg 26. 0 - 34.0 pg [facility] MCHC (RBC) [Mass/Vol] 29.8 % Low 30.5 - 36.0 % [facility] MCV (RBC) [Entitic vol] 90.6 fL 77.0 - 99.0 fL [facility] Monocytes (Bld) [#/Vol] 1.2 10*3/uL High 0.0 - 0.9 10*3/uL [facility] Monocytes/100 WBC (Bld) 9.6 % 5.0 - 13.0 % [facility] Neutrophils (Bld) [#/Vol] 10.4 10*3/uL High 1.8 - 7.5 10*3/uL [facility] Neutrophils/100 WBC (Bld) 81.1 % 38.0 - 82.0 % [facility] Nucleated RBC/100 WBC (Bld) [Ratio] 0 % [facility] [employer] Platelet mean volume (Bld) [Entitic vol] 10.6 fL 9.0 - 12.7 fL [facility] [employer] Platelets (Bld) [#/Vol] 221 10*3/uL 140 - 440 10*3/uL [facility] RBC (Bld) [#/Vol] 3.71 10*6/uL Low 4.40 - 5.9 0 10*6/uL [facility] WBC (Bld) [#/Vol] 12.8 10*3/uL High 3.6 - 10.7 10*3/uL [facility] CBC WITH AUTO DIFFERENTIALon 07-15-2024 Basophils (Bld) [#/Vol] 0.0 10*3/uL Normal 0.0-0.2 [facility] Comment on above: Performed By: #### L [id number] ####Wall Steamer: CLARE HUGGINS ([phone])[facility] LO ([facility])[address] [place] [address] Basophils/100 WBC (Bld) 0.2 % Normal 0.0-2.0 S [facility] Comment on above: Performed By: #### L [id number] ####Wall Steamer: CLARE HUGGINS ([phone])[facility] [place] ([facility])[address] Eosinophils (Bld) [#/Vol] 0.0 10*3/uL Normal 0.0-0.5 [facility] Comment on above: Performed By: #### L [id number] ####Wall Steamer: CLARE HUGGINS ([phone])[facility] [place] ([facility])[address] Eosinophils/100 WBC (Bld) 0.3 % Normal 0.0-6.0 [facility] Comment on above: Performed By: #### L [id number] ####Wall Steamer: CLARE HUGGINS ([phone])[facility] ([facility])[address] Erythrocyte distribution width (RBC) [Ratio] 15.9 % High 11.5-15.0 [facility] Comment on above: Performed By: #### L [id number] ####Wall Steamer: CLARE HUGGINS ([phone])[facility] ([facility])[address] [place] [address] Hematocrit (Bld) [Volume fraction] 33.6 % Low 40.0-52.0 [facility] Comment on above: Performed By: #### L [id number] ####Wall Steamer: CLARE HUGGINS ([phone])[facility] [place] ([facility])[address] [place] [address] Hemoglobin (Bld) [Mass/Vol] 10.0 g/dL Low 13.0-18.0 [facility] Comment on above: Performed By: #### L [id number] ####Wall Steamer: CLARE HUGGINS ([phone])[facility] [place] ([facility])[address] IMMATURE GRANS % 0.4 % Normal 0.0-2.0 [facility] Comment on above: Performed By: #### L [id number] ####Wall Steamer: CLARE HUGGINS ([phone])[facility] ([facility])[address] IMMATURE GRANS ABSOLUTE 0.1 10*3/uL High <0.1 [facility] Comment on above: Performed By: #### L [id number] ####Wall Steamer: CLARE HUGGINS ([phone])[facility] ([facility])[address] Lymphocytes (Bld) [#/Vol] 1.1 10*3/uL Normal 1.0-4.3 [facility] Comment on above: Performed By: #### L [id number] ####Wall Steamer: CLARE HUGGINS ([phone])[facility] ([facility])[address] [place] [address] Lymphocytes/100 WBC (Bld) 8.4 % Low 15.0-45.0 [facility] Comment on above: Performed By: #### L [id number] ####Wall Steamer: CLARE HUGGINS ([phone])[facility] ([facility])[address] [place] [address] MCH (RBC) [Entitic mass] 27.0 pg Normal 26.0-34.0 [facility] Comment on above: Performed By: #### L [id number] ####Wall Steamer: CLARE HUGGINS ([phone])[facility] ([facility])[address] [place] [address] MCHC 29.8 % Low 30.5-36.0 [facility] Comment on above: Performed By: #### L [id number] ####Wall Steamer: CLARE HUGGINS ([phone])[facility] ([facility])[address] [place] [address] MCV (RBC) [Entitic vol] 90.6 fL Normal 77.0-99.0 [facility] Comment on above: Performed By: #### L [id number] ####Wall Steamer: CLARE HUGGINS ([phone])[facility] [place] ([facility])[address] Monocytes (Bld) [#/Vol] 1.2 10*3/uL High 0.0-0.9 [facility] Comment on above: Performed By: #### L [id number] ####Wall Steamer: CLARE HUGGINS ([phone])[facility] [place] ([facility])[address] Monocytes/100 WBC (Bld) 9.6 % Normal 5.0-13.0 [facility] Comment on above: Performed By: #### L [id number] ####Wall Steamer: CLARE MERCERKRISTYN ([phone])[facility] [place] ([facility])[address] NEUTROPHILS ABSOLUTE 10.4 10*3/uL High 1.8-7.5 [facility] Comment on above: Performed By: #### L [id number] ####Wall Steamer: CLARE HUGGINS ([phone])[facility] [place] ([facility])[address] Neutrophils/100 WBC (Bld) 81.1 % Normal 38.0-82.0 [facility] Comment on above: Performed By: #### L [id number] ####Wall Steamer: CLARE HUGGINS ([phone])[facility] [place] ([facility])[address] NRBC 0.0 /100 WBCs Normal 0.0-2.0 [facility] Comment on above: Performed By: #### L [id number] ####Wall Steamer: CLARE HUGGINS ([phone])[facility] [place] ([facility])[address] Platelet mean volume (Bld) [Entitic vol] 10.6 fL Normal 9.0-12.7 [facility] Comment on above: Performed By: #### L [id number] ####Wall Steamer: CLARE HUGGINS ([phone])[facility] (SB[facility]AB)[address] Platelets (Bld) [#/Vol] 221 10*3/uL Normal 140-440 [facility] Comment on above: Performed By: #### L [id number] ####Wall Steamer: CLARE HUGGINS ([phone])[facility] [place] ([facility])[address] RBC (Bld) [#/Vol] 3.71 10*6/uL Low 4.40-5.90 [facility] Comment on above: Performed By: #### L [id number] ####Wall Steamer: CLARE HUGGINS ([phone])[facility] [place] ([facility])[address] WBC (Bld) [#/Vol] 12.8 10*3/uL High 3.6-10.7 [facility] Comment on above: Performed By: #### L [id number] ####Wall Steamer: CLARE HUGGINS ([phone])[facility] [place] ([facility])[address] COMPREHENSIVE METABOLIC PANE Cricket 07-15-2024 Albumin [Mass/Vol] 2.8 g/dL Low 3.4-4.8 [facility] Comment on above: Performed By: #### Joyce GIRALDO, LAB17, LAB99 ####Wall Steamer: CLARE HUGGINS ([phone])[facility] [place] ([facility])[address] ALP [Catalytic activity/Vol] 94 U/L Normal 40-150 [facility] Comment on above: Performed By: #### Joyce ABKeegan, LAB17, LAB99 ####Wall Steamer: CLARE HUGGINS ([phone])[facility] [place] ([facility])[address] ALT [Catalytic activity/Vol] 13 U/L Normal <40 [facility] Comment on above: Performed By: #### Joyce GIRALDO, LAB17, LAB99 ####Wall Steamer: CALRE HUGGINS ([phone])[facility]ITAL[facility] [place] ([facility])[address] Anion gap [Moles/Vol] 11 mmol/L Normal 3-13 [facility] Comment on above: Performed By: #### Joyce GIRALDO, LAB17, LAB99 ####Wall Steamer: CLARE HUGGINS ([phone])[facility] ([facility])[address] AST [Catalytic activity/Vol] 22 U/L Normal <34 [facility] Comment on above: Result Comment: TC Potential interference from hemolysis Performed By: #### Joyce GIRALDO, LAB17, LAB99 ####Wall Steamer: CLARE HUGGINS ([phone])[facility]ITAL[facility]eto [facility] (SBHLAB)[address] Bilirubin [Mass/Vol] 0.4 mg/dL Normal <1.2 [facility] Comment on above: Performed By: #### Joyce GIRALDO, LAB17, LAB99 ####Wall Steamer: CLARE HUGGINS ([phone])[facility] ([facility])[address] Calcium [Mass/Vol] 8.4 mg/dL Low 8.8-10.0 [facility] Comment on above: Performed By: #### Joyce GIRALDO, LAB17, LAB99 ####Wall Steamer: CLARE HUGGINS ([phone])[facility] ([facility])[address] Chloride [Moles/Vol] 107 mmol/L Normal 98-107 [facility] Comment on above: Performed By: #### Joyce GIRALDO, LAB17, LAB99 ####Wall Steamer: CLARE HUGGINS ([phone])[facility] (SB[facility])[address] [place] [address] [place] CO2 [Moles/Vol] 18 mmol/L Low 23-31 [facility] Comment on above: Performed By: #### L AB68, LAB17, LAB99 ####Wall Steamer: CLARE HUGGINS ([phone])[facility]ITAL[facility] [place] ([facility]AB)[address] Creatinine [Mass/Vol] 1.49 mg/dL High 0.72-1.25 [facility] Comment on above: Performed By: #### L ABKeegan, LAB17, LAB99 ####Wall Steamer: CLARE HUGGINS ([phone])[facility] ([facility])[address] GLOMERULAR FILTRATION RATE ML/MIN/1.73 SQ M.PREDICTED 51.1 mL/min/1.73m*2 Low >60.0 [facility] Comment on above: Result Comment: Calc ulation based on the Chronic Kidney Disease Epidemiology Collaboration (CKD-EPI) equation refit without adjustment for race Performed By: #### L ABKeegan, LAB17, LAB99 ####Wall Steamer: CLARE HUGGINS ([phone])[facility] ([facility])[address] Glucose [Mass/Vol] 305 mg/dL High 82-115 [facility] Comment on above: Performed By: #### Joyce ABKeegan, LAB17, LAB99 ####Wall Steamer: CLARE HUGGINS ([phone])[facility] ([facility])[address] Potassium [Moles/Vol] 5.1 mmol/L Normal 3.5-5.1 [facility] Comment on above: Result Comment: [facility] potassium values may be up to 0.5 mmol/L lower than serum values. Performed By: #### L AB68, LAB17, LAB99 ####Wall Steamer: CLARE HUGGINS ([phone])[facility] ([facility])[address] Protein [Mass/Vol] 6.0 g/dL Low 6.4-8.3 [facility] Comment on above: Performed By: #### L AB68, LAB17, LAB99 ####Wall Steamer: CLARE MERCERKRISTYN ([phone])[facility]ITAL[facility] [place] ([facility])[address] Sodium [Moles/Vol] 136 mmol/L Normal 136-145 [facility] Comment on above: Performed By: #### Joyce ABKeegan, LAB17, LAB99 ####Wall Steamer: CLARE WINTERVERN ([phone])[facility]ITAL[facility]eto [facility] ([facility])[address] Urea nitrogen [Mass/Vol] 37 mg/dL High 9-23 [facility] Comment on above: Performed By: #### Joyce AB68, LAB17, LAB99 ####Wall Steamer: CLARE WINTERVERN ([phone])[facility] ([facility])[address] Comprehensive metabolic 1998 panelon 07-15-2024 Albumin [Mass/Vol] 2.8 g/dL Low 3.4 - 4.8 g/dL [facility] ALP [Catalytic activity/Vol] 94 U/L 40 - 150 U/L [facility] ALT [Catalytic activity/Vol] 13 U/L [facility] U/L [facility] Anion gap [Moles/Vol] 11 mmol/L 3 - 13 mmol/L [facility] AST [Catalytic activity/Vol] 22 U/L [facility] - 34 U/L [facility] Comment on above: TC Potential interference from hemolysis Bilirubin [Mass/Vol] 0.4 mg/dL NINF - 1.2 mg/dL [facility] Calcium [Mass/Vol] 8.4 mg/dL Low 8.8 - 10. 0 mg/dL [facility] Chloride [Moles/Vol] 107 mmol/L 98 - 10 7 mmol/L [facility] CO2 [Moles/Vol] 18 mmol/L Low 23 - 31 mmol/L [facility] Creatinine [Mass/Vol] 1.49 mg/dL High 0.72 - 1.25 mg/dL [facility] GFR/1.73 sq M.predicted (S/P/Bld) [Vol rate/Area] 51.1 mL/min Low - PINF [facility] Comment on above: Calculation based on the Chronic Kidney Disease Epidemiology Collaboration (CKD-EPI) equation refit without adjustment for race Glucose [Mass/Vol] 305 mg/dL High 82 - 115 mg/dL [facility] Interpretation and review of laboratory results Abnormal [facility] Potassium [Moles/Vol] 5.1 mmol/L 3.5 - 5.1 mmol/L [facility] Comment on above: Plasma potassium adriana ues may be up to 0.5 mmol/L lower than serum values. Protein [Mass/Vol] 6 g/dL Low 6.4 - 8.3 g/dL [facility] Sodium [Moles/Vol] 136 mmol/L 136 - 145 mmol/L [facility] Urea nitrogen [Mass/Vol] 37 mg/dL High 9 - 23 mg/dL [facility] ED Nursing Noteon 07-15-2024 ED Nursing Note Patient taken to the floor via medic. Normal [facility] ED Nursing Note Patient arrives from SNF via ambulance due to coffee ground emesis twice. Normal [facility] ED Provider Noteon ED Provider Note Emergency Department Encounter Pt Name: James [...] Acute kidney injury (HCC) 09/11/2015 CAD in [place] artery 08/08/2017 COPD (chronic obstructive pulmonary disease) [...] 1140] Temp Heart Rate Resp BP 36.7 ?C (98 ?F) 90 20 129/61 SpO2 Temp Source Heart [...] - do not believe this will change advisor. ED course: Diagnoses as of 07/15/24 1430 Hematemesis ED medications managed: Medications pantoprazole (ProtoNix) 40 mg in sodium chloride (PF) 0.9 % 10 mL injection (40 mg IntraVENous Given 07/15/24 1212) Chronic conditions and social determinants of health affecting care: COPD DISPOSITION/PLAN Admit 07/15/2024 01:32:16 PM Amanuel Parisi MD Emergency Medicine Amanuel Parisi MD 07/16/24 0816 Normal [facility] FERRITINon 07-15-2024 Ferritin [Mass/Vol] 80 ng/mL Normal 22-275 [facility] Comment on above: Result Comment: REX Hernandez COMMENTS: Ferritin levels below 10 ng/mL have been reported as indicative of iron deficiency anemia. Performed By: #### L AB68, LAB17, LAB99 ####Wall Steamer: CLARE HUGGINS ([phone])[facility] ([facility])[address] [place] [address] Ferritin [Mass/Vol]on 2024 Interpretation and review of laboratory results Normal [facility] Ferritin levels belo w 10 ng/mL have been reported as indicative of iron deficiency anemia. [facility] HEMOGLOBIN A1Con 07-15-2024 Glucose [Mass/Vol] 186 mg/dL Normal [facility] Comment on above: Result Comment: REX Hernandez COMMENTS: HbA1c values of 5.7-6.4 percent indicate an increased risk for developing diabetes mellitus. HbA1c values greater than or equal to 6.5 percent are diagnostic of diabetes mellitus. For diagnosis of diabetes in individuals without unequivocal hyperglycemia, results should be confirmed by repeat testing. Performed By: #### L AB90 ####Wall Steamer: CLARE HUGGINS ([phone])[facility] ([facility])[address] HEMOGLOBIN A1C 8.1 %HbA1C High <5.7 [facility] Comment on above: Result Comment: Norm al less than 5.7% Prediabetes 5.7% to 6.4% Diabetes 6.5% or higher --HgbA1C levels may not be accurate in patients who have renal disease, received recent blood transfusions, are anemic, or who have dyshemoglobinemia. Performed By: #### L AB90 ####Wall Steamer: CLARE HUGGINS ([phone])[facility] ([facility] [place] [address] HEMOGLOBIN AND HEMATOCRIT, B LOODon 07-15-2024 Hematocrit (Bld) [Volume fraction] 30.4 % Low 40.0-52.0 [facility] Comment on above: Performed By: #### L AB753 ####Wall Steamer: CLARE HUGGINS ([phone])[facility] ([facility] [place] [address] Hemoglobin (Bld) [Mass/Vol] 9.2 g/dL Low 13.0-18.0 [facility] Comment on above: Performed By: #### L AB753 ####Wall Steamer: CLARE HUGGINS ([phone])[facility] ([facility])[address] [place] [address] Hemoglobin (Bld) [Mass/Vol]O rdered By: Haydee Dixon on 07-15-2024 Hematocrit (Bld) [Volume fraction] 30.4 % Low 40.0 - 52.0 % [facility] Interpretation and review of laboratory results Abnormal [facility] LIPASEon 07-15-2024 Lipase [Catalytic activity/Vol] 8 U/L Normal <55 [facility] Comment on above: Performed By: #### L AB68, LAB17, LAB99 ####Wall Steamer: CLARE HUGGINS ([phone])[facility] ([facility] [place] [address] Laboratory - Chemistry and C hemistry - challengeon 07-15-2024 Glucose [Mass/Vol] 191 mg/dL High 70 - 100 mg/dL [facility] Glucose [Mass/Vol] 261 mg/dL High 70 - 100 mg/dL [facility] Ferritin [Mass/Vol] 80 ng/mL 22 - 275 ng/mL [facility] Average glucose Estimated from glycated hemoglobin (Bld) [Mass/Vol] 186 mg/dL [facility] Lipase [Catalytic activity/Vol] 8 U/L NINF - 55 U/L [facility] Laboratory - Chemistry and C hemistry - challengeOrdered By: Papo Christopher on 07-15-2024 Base excess Calc (Bld) [Moles/Vol] -3.3000 mmol/L Low -3.0 - 3.0 mmol/L [facility] CO2 (Bld) [Partial pressure] 46.3 mm[Hg] [facility] CO2 [Moles/Vol] 24.4 mmol/L 22.0 - 28.0 mmol/L [facility] HCO3 (Bld) [Moles/Vol] 22.9 mmol/L 21.0 - 27.0 mmol/L [facility] Oxygen (Bld) [Partial pressure] 70.1 mm[Hg] Low [facility] pH (Bld) 7.313 [pH] Low 7.350 - 7.450 [facility] Laboratory - Coagulationon 0 07-15-2024 aPTT Coag (PPP) [Time] 31.2 s High 20.0 - 30.5 s [facility] INR Coag (PPP) [Relative time] 1.1 {INR} 0.9 - 1.1 [facility] Comment on above: Recommended Anticoag ulant [...] - 1 2.0 s [facility] Laboratory - Hematology and Cell countsOrdered By: Haydee Dixon on 07-15-2024 Hemoglobin (Bld) [Mass/Vol] 9.2 g/dL Low 13.0 - 18.0 g/dL [facility] Laboratory - Hematology and Cell countsOrdered By: Papo Christopher on 07-15-2024 Hemoglobin (Bld) [Mass/Vol] 11.4 g/dL Low Screen only [facility] Laboratory - Hematology and Cell countson 07-15-2024 HbA1c (Bld) [Mass fraction] 8.1 % High NINF [facility] Comment on above: Normal less than 5.7 % Prediabetes 5.7% to 6.4% Diabetes 6.5% or higher --HgbA1C levels may not be accurate in patients who have renal disease, received recent blood transfusions, are anemic, or who have dyshemoglobinemia. Laboratory - Microbiology an d Antimicrobial susceptibilityon 07-15-2024 FLUAV RNA JOAN+probe Ql (Resp) Not detected Not Detected [facility] [employer] FLUBV RNA JOAN+probe Ql (Resp) Not detected Not Detected [facility] [employer] RSV RNA JOAN+probe Ql (Resp) Not detected Not Detected [facility] [employer] SARS-CoV-2 (COVID-19) RNA JOAN+probe Ql (Resp) Not detected Not Detected [facility] [employer] SARS-CoV-2 (COVID-19) RNA JOAN+probe Ql (Unsp spec) Methodology: real-time, RT-PCR The SARS-CoV-2, Flu A/B, and RSV Combo assay is intended for in vitro diagnostic use under the FDA Emergency Use Authorization (EUA). This test has not been FDA cleared or approved. In compliance with this authorization, please visit www.fda.gov/media/69749 5/download or www.fda.gov/media/46180 6/download to access the applicable information sheets. [employer] Lipase [Catalytic activity/V ol]on 07-15-2024 Interpretation and review of laboratory results Normal [facility] [employer] No Panel Informationon 07-15 Interpretation and review of laboratory results Abnormal [facility] [employer] Performed by: [facility], [address] [place] [id number] CLIA ID: [id number] [facility] [employer] Interpretation and review of laboratory results Abnormal [facility] [employer] Performed by: [facility], [address] [place] [id number] CLIA ID: [id number] [facility] [employer] Interpretation and review of laboratory results Abnormal [facility] [employer] HbA1c values of 5.7- 6.4 percent indicate an increased risk for developing diabetes mellitus. HbA1c values greater than or equal to 6.5 percent are diagnostic of diabetes mellitus. For diagnosis of diabetes in individuals without unequivocal hyperglycemia, results should be confirmed by repeat testing. [facility] [employer] [facility] [employer] Interpretation and review of laboratory results Abnormal [facility] [employer] [facility] [employer] No Panel InformationOrdered By: Papo Christopher on 07-15-2024 Amount Of Oxygen 6 [facility] alth Interpretation and review of laboratory results Abnormal [facility] Source Of Oxygen Nasal Cannula (LPM) [facility] PROTIME AND APTTon aPTT Coag (Bld) [Time] 31.2 s High 20.0-30.5 [facility] Comment on above: Performed By: #### L [id number] ####Wall Steamer: CLARE HUGGINS ([id number])[facility] ([facility])[address] [place] [address] INR Coag (PPP) [Relative time] 1.1 {INR} Normal 0.9-1.1 [facility] Comment on above: Result Comment: Lux mmended Anticoagulant Therapy: SEE BELOW ----- INR of 2.0 [...] prevent Myocardial Infarction Performed By: #### L [id number] ####Wall Steamer: CLARE HUGGINS ([phone])[facility] ([facility])[address] [place] [address] PT Coag (PPP) [Time] 12.3 s High 9.0-12.0 [facility] Comment on above: Performed By: #### L [id number] ####Wall Steamer: CLARE HUGGINS ([id number])[facility] ([facility])[address] [place] [address] SARS-COV-2, FLU A/B, AND RSV COMBOon 07-15-2024 SARS-CoV-2 (COVID-19) RNA JOAN+probe Ql (Unsp spec) SARS-COV-2 Reference Not Detected Not Detected RESPIRATORY SYNCYTIAL VIRUS Reference Not Detected Not Detected INFLUENZA A (CEPHEID) Reference Not Detected Not Detected INFLUENZA B (CEPHEID) Reference Not Detected Not Detected ORDER COMMENTS: Methodology: real-time, RT-PCR The SARS-CoV-2, Flu A/B, and RSV Combo assay is intended for in vitro diagnostic use under the FDA Emergency Use Authorization (EUA). This test has not been FDA cleared or approved. In compliance with this authorization, please visit www.fda.gov/media/42324 5/download or www.fda.gov/media/87835 6/download to access the applicable information sheets. Normal [facility] Comment on above: Performed By: #### L [id number] #### Wall Steamer: CLARE HUGGINS ([phone]) [facility] ([facility]) [address] [place] [address] SARS-CoV-2, Flu A/B, and RSV Comboon 07-15-2024 Interpretation and review of laboratory results Normal [facility] XR Chest Single viewon 07-15 Borderline cardiomegaly. Low lung volumes and pulmonary vascular congestion. No lobar consolidation is seen. Report Dictated on Electronically Signed By: Melvin Scott MD Electronically Signed Date/Time: 07/15/2024 12:22 PM EDT [facility] Patient Name: JAMES REYES : 1955 [...] There are degenerative changes of the spine. [facility] Melvin Scott MD - 07/15/2024 Patient Name: [...] 07/15/2024 12:22 PM EDT [facility] Radiology Study observation (narrative) [facility] X[facility] Chest Single viewOrdered By: Melvin Scott on 07-15-2024 [facility] Hemoglobin A1c percentageOrd ered By: Chelle Troncoso on 07-01-2024 HbA1c (Bld) [Mass fraction] 8.6 % >5.7 [facility] AMB POC URINALYSIS DIP STICK AUTO W/O MICRO (CRN)Ordered By: Dean Lomeli on 06-27-2024 Bilirubin, UA Negative [facility] Blood, UA Trace-Intact [facility] Glucose, UA >1,000 [facility] Ketones, UA (mg/dL) Negative Negative mg/dL [facility] Leukocytes, UA [facility] Nitrite, UA Negative [facility] pH, UA 5.5 [facility] Protein, UA Negative [facility] Spec Grav, UA 1.01 [facility] Urobilinogen, UA 0.2 [facility] Progress Noteon 06-27-2024 Progress Note OFFICE CYSTOSCOPY REPORT PATIENT NAME: James Reyes [...] diversion Pepe Marino MD 06/27/24 11:55 AM Normal [facility] Progress Note UROJET 2% LIDOCAINE JELLY [facility] [id number] LOT [id number] EXP 05/16/2026 ADMINISTERED BY Nettie Carreon LPN 6 mL in to Urethra PATIENT TOLERATED WELL Normal [facility] 30on 06-04-2024 30 Problem: Knowledge Deficit Goal: Patient/family/caregive r demonstrates understanding of disease process, treatment plan, [...] Interventions Goal: Promote nutritional intake Outcome: Progressing Normal [facility] [id number] 06-04-2024 [id number] Next Site of Care Admission Date: 05/30/2024 08:35 AM Patient Name: JAMES REYES Location: [address] CARDIAC PCU/[facility] [id number] B Date of : 1955 - Placement Information - Referral Type:Mcc/SNF - Return Referral ID:[id number] Provider Name:Juan Address 1:[address], [address] Address 2: City:[place] Selection Factors:Returning to Facility State:[place] Normal [facility] [phone] Updates DC order entered Confirmed pickup time of 4pm by transport company [employer] [facility] Juan notified Sreekanth Reyes brother notified [facility] [phone] Confirmed pickup deondre e of 4pm by transport company [employer] [facility] at phone number [phone]. Location of facility drop off is [facility]. Facility notified via [employer], TCC notified on secure chat. The S Vehicle you requested for James Mosley in unit/room [place] [id number] on 06/04/2024 is scheduled to arrive at 4:00pm EST! [employer] [facility] is handling this ride and you can contact them at . 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 Awaiting time confirmation. [facility] [phone] Discharge med list transmitted to [facility]. [facility] Bacteria identified Cx Nom ( Bld)on 06-04-2024 Interpretation and review of laboratory results Normal [facility] Blood Collection Sit e: Left Hand [facility] Blood Collection Sit e: Right Hand [facility] CALCIUM, IONIZEDon 5 CALCIUM IONIZED 4.60 mg/dL Normal 4.30-5.20 [facility] Comment on above: Performed By: #### L AB54 ####Wall Steamer: CLARE HUGGINS ([phone])[facility] ([facility])[address] [place] [address] PH, IONIZED CALCIUM 7.40 Normal 7.31-7.46 [facility] Comment on above: Performed By: #### L AB54 ####Wall Steamer: CLARE HUGGINS ([phone])[facility]ITAL[facility] ([facility])[address] CBC (HEMOGRAM)on 06-04-2024 Erythrocyte distribution width (RBC) [Ratio] 14.9 % Normal 11.5-15.0 [facility] Comment on above: Performed By: #### L AB294 ####Wall Steamer: CLARE HUGGINS ([phone])[facility] ([facility])[address] Hematocrit (Bld) [Volume fraction] 32.4 % Low 40.0-52.0 [facility] Comment on above: Performed By: #### L AB294 ####Wall Steamer: CLARE HUGGINS ([phone])[facility] ([facility])[address] Hemoglobin (Bld) [Mass/Vol] 9.9 g/dL Low 13.0-18.0 [facility] Comment on above: Performed By: #### L AB294 ####Wall Steamer: CLARE HUGGINS ([id number])[facility] ([facility])[address] [place] [address] MCH (RBC) [Entitic mass] 28.4 pg Normal 26.0-34.0 [facility] Comment on above: Performed By: #### L AB294 ####Wall Steamer: CLARE HUGGINS ([id number])[facility] ([facility])[address] MCHC 30.6 % Normal 30.5-36.0 [facility] Comment on above: Performed By: #### L AB294 ####Wall Steamer: CLARE HUGGINS ([phone])[facility] ([facility])[address] MCV (RBC) [Entitic vol] 92.8 fL Normal 77.0-99.0 [facility] Comment on above: Performed By: #### L AB294 ####Wall Steamer: CLARE HUGGINS ([phone])[facility] [place] ([facility])[address] Platelet mean volume (Bld) [Entitic vol] 10.5 fL Normal 9.0-12.7 [facility] Comment on above: Performed By: #### L AB294 ####Wall Steamer: CLARE HUGGINS ([phone])[facility] [place] ([facility])[address] Platelets (Bld) [#/Vol] 221 10*3/uL Normal 140-440 [facility] Comment on above: Performed By: #### L AB294 ####Wall Steamer: CLARE HUGGINS ([phone])[facility] [place] ([facility])[address] RBC (Bld) [#/Vol] 3.49 10*6/uL Low 4.40-5.90 [facility] Comment on above: Performed By: #### L AB294 ####Wall Steamer: CLARE HUGGINS ([phone])[facility] [place] ([facility])[address] [place] [address] WBC (Bld) [#/Vol] 6.7 10*3/uL Normal 3.6-10.7 [facility] Comment on above: Performed By: #### L AB294 ####Wall Steamer: CLARE HUGGINS ([id number])[facility] [place] ([facility])[address] CBC panel Auto (Bld)Ordered By: Amador Saenz on 06-04-2024 Erythrocyte distribution width (RBC) [Ratio] 14.9 % 11.5 - 15.0 % [facility] Hematocrit (Bld) [Volume fraction] 32.4 % Low 40.0 - 52.0 % [facility] Hemoglobin (Bld) [Mass/Vol] 9.9 g/dL Low 13.0 - 18.0 g/dL [facility] Interpretation and review of laboratory results Abnormal [facility] MCH (RBC) [Entitic mass] 28.4 pg 26. 0 - 34.0 pg [facility] MCHC (RBC) [Mass/Vol] 30.6 % 30.5 - 36.0 % [facility] MCV (RBC) [Entitic vol] 92.8 fL 77.0 - 99.0 fL [facility] Platelet mean volume (Bld) [Entitic vol] 10.5 fL 9.0 - 12.7 fL [facility] Platelets (Bld) [#/Vol] 221 10*3/uL 140 - 440 10*3/uL [facility] RBC (Bld) [#/Vol] 3.49 10*6/uL Low 4.40 - 5.9 0 10*6/uL [facility] WBC (Bld) [#/Vol] 6.7 10*3/uL 3.6 - 10.7 10*3/uL [facility] COMPREHENSIVE METABOLIC PANE Cricket 06-04-2024 Albumin [Mass/Vol] 3.0 g/dL Low 3.4-4.8 [facility] Comment on above: Performed By: #### Joyce AB17, BBW517, YVY840 ####Wall Steamer: CLARE HUGGINS ([phone])[facility] ([facility])[address] ALP [Catalytic activity/Vol] 63 U/L Normal 40-150 [facility] Comment on above: Performed By: #### Joyce AB17, SZI648, GZQ198 ####Wall Steamer: CLARE HUGGINS ([phone])[facility] ([facility])[address] ALT [Catalytic activity/Vol] 15 U/L Normal <40 [facility] Comment on above: Performed By: #### L AB17, TDQ174, XKG344 ####Wall Steamer: CLARE HUGGINS ([phone])[facility] ([facility])[address] Anion gap [Moles/Vol] 7 mmol/L Normal 3-13 [facility] Comment on above: Performed By: #### L AB17, JBC132, OVA941 ####Wall Steamer: CLARE HUGGINS ([id number])[facility] [place] ([facility])[address] AST [Catalytic activity/Vol] 16 U/L Normal <34 [facility] Comment on above: Performed By: #### L AB17, AAV417, KJY311 ####Wall Steamer: CLARE HUGGINS ([id number])[facility] [place] ([facility])[address] Bilirubin [Mass/Vol] 0.2 mg/dL Normal <1.2 [facility] Comment on above: Performed By: #### Joyce AB17, CHE232, JWF938 ####Wall Steamer: CLARE HUGGINS ([phone])[facility] [place] ([facility])[address] Calcium [Mass/Vol] 8.6 mg/dL Low 8.8-10.0 [facility] Comment on above: Performed By: #### Joyce AB17, JKT901, CBI815 ####Wall Steamer: CLARE HUGGINS ([id number])[facility] [place] ([facility])[address] Chloride [Moles/Vol] 105 mmol/L Normal 98-107 [facility] Comment on above: Performed By: #### L AB17, SVE325, NPX983 ####Wall Steamer: CLARE HUGGINS ([id number])[facility] [place] ([facility])[address] [place] [address] [place] CO2 [Moles/Vol] 28 mmol/L Normal 23-31 [facility] Comment on above: Performed By: #### L AB17, MSR877, VAG237 ####Wall Steamer: CLARE HUGGINS ([phone])[facility] [place] ([facility])[address] [place] [address] [place] Creatinine [Mass/Vol] 0.86 mg/dL Normal 0.72-1.25 [facility] Comment on above: Performed By: #### Joyce ANDRE, AUH847, PCU956 ####Wall Steamer: CLARE HUGGINS ([id number])[facility] ([facility])[address] GLOMERULAR FILTRATION RATE ML/MIN/1.73 SQ M.PREDICTED >90.0 Normal >60.0 [facility] Comment on above: Result Comment: Calc ulation based on the Chronic Kidney Disease Epidemiology Collaboration (CKD-EPI) equation refit without adjustment for race Performed By: #### Joyce ANDRE, LUL477, EYD614 ####Wall Steamer: CLARE HUGGINS ([id number])[facility] ([facility])[address] Glucose [Mass/Vol] 200 mg/dL High 82-115 [facility] Comment on above: Performed By: #### Joyce ANDRE, DZJ081, AOZ819 ####Wall Steamer: CLARE HUGGINS ([id number])[facility] ([facility])[address] Potassium [Moles/Vol] 4.1 mmol/L Normal 3.5-5.1 [facility] Comment on above: Result Comment: [facility] potassium values may be up to 0.5 mmol/L lower than serum values. Performed By: #### Joyce ANDRE, FTR071, MDA786 ####Wall Steamer: CLARE HUGGINS ([id number])[facility] ([facility])[address] Protein [Mass/Vol] 5.5 g/dL Low 6.4-8.3 [facility] Comment on above: Performed By: #### Joyce AB17, XNB632, GKS207 ####Wall Steamer: CLARE HUGGINS ([id number])[facility] ([facility])[address] Sodium [Moles/Vol] 140 mmol/L Normal 136-145 [facility] Comment on above: Performed By: #### L AB17, ODN901, XCI779 ####Wall Steamer: CLARE HUGGINS ([id number])[facility] ([facility])[address] Urea nitrogen [Mass/Vol] 30 mg/dL High 9-23 [facility] Comment on above: Performed By: #### L AB17, FKO291, ZDC859 ####Wall Steamer: CLARE HUGGINS ([phone])[facility] ([facility])[address] Calcium.ionized [Moles/Vol]o n 06-04-2024 Calcium.ionized (Bld) [Moles/Vol] 4.6 mg/dL 4.30 - 5.20 mg/dL [facility] Interpretation and review of laboratory results Normal [facility] PH, IONIZED CALCIUM 7.4 7.31 - 7.46 [facility] Comprehensive metabolic 1998 panelon 06-04-2024 Albumin [Mass/Vol] 3 g/dL Low 3.4 - 4.8 g/dL [facility] ALP [Catalytic activity/Vol] 63 U/L 40 - 150 U/L [facility] ALT [Catalytic activity/Vol] 15 U/L [facility] - 40 U/L [facility] Anion gap [Moles/Vol] 7 mmol/L 3 - 13 mmol/L [facility] AST [Catalytic activity/Vol] 16 U/L [place] - 34 U/L [facility] Bilirubin [Mass/Vol] 0.2 mg/dL [facility] mg/dL [facility] Calcium [Mass/Vol] 8.6 mg/dL Low 8.8 - 10. 0 mg/dL [facility] Chloride [Moles/Vol] 105 mmol/L 98 - 10 7 mmol/L [facility] CO2 [Moles/Vol] 28 mmol/L 23 - 31 mmol/L [facility] Creatinine [Mass/Vol] 0.86 mg/dL 0.72 - 1.25 mg/dL [facility] GFR/1.73 sq M.predicted (S/P/Bld) [Vol rate/Area] - PINF [facility] Comment on above: Calculation based on the Chronic Kidney Disease Epidemiology Collaboration (CKD-EPI) equation refit without adjustment for race Glucose [Mass/Vol] 200 mg/dL High 82 - 115 mg/dL [facility] Interpretation and review of laboratory results Abnormal [facility] Potassium [Moles/Vol] 4.1 mmol/L 3.5 - 5.1 mmol/L [facility] Comment on above: Plasma potassium adriana ues may be up to 0.5 mmol/L lower than serum values. Protein [Mass/Vol] 5.5 g/dL Low 6.4 - 8.3 g/dL [facility] Sodium [Moles/Vol] 140 mmol/L 136 - 145 mmol/L [facility] Urea nitrogen [Mass/Vol] 30 mg/dL High 9 - 23 mg/dL [facility] Laboratory - Chemistry and C hemistry - challengeon 06-04-2024 Glucose [Mass/Vol] 297 mg/dL High 70 - 100 mg/dL [facility] Glucose [Mass/Vol] 121 mg/dL High 70 - 100 mg/dL [facility] Glucose [Mass/Vol] 168 mg/dL High 70 - 100 mg/dL [facility] Magnesium [Mass/Vol] 2.1 mg/dL 1.6 - 2 .6 mg/dL [facility] Laboratory - Microbiology an d Antimicrobial susceptibilityon 06-04-2024 Bacteria identified Cx Nom (Bld) No growth at 5 days [facility] MAGNESIUMon 06-04-2024 Magnesium [Mass/Vol] 2.1 mg/dL Normal 1.6-2.6 [facility] Comment on above: Result Comment: REX Hernandez COMMENTS: Higher values can be expected in females during menses. Performed By: #### L AB17, [id number], [id number] ####Wall Steamer: CLARE HUGGINS ([id number])[facility] HOSPITALPrieto [place] (SBHLAB)[address] [place] [address] Magnesium [Mass/Vol]on 06-04 Higher values can be expected in females during menses. [facility] No Panel Informationon 06-04 Interpretation and review of laboratory results Abnormal [facility] Performed by: [facility], [address] [place] [address] CLIA ID: [id number] [facility] Interpretation and review of laboratory results Abnormal [facility] Performed by: [facility], [address] [facility] [address] CLIA ID: [id number] [facility] Interpretation and review of laboratory results Abnormal [facility] Performed by: [facility], [address] [facility] [address] CLIA ID: [id number] [facility] Interpretation and review of laboratory results Normal [facility] Nursing Noteon 06-04-2024 Nursing Note Nurse to nurse repor t given to Sj Cruz. Normal [facility] PHOSPHORUSon 06-04-2024 Phosphate [Mass/Vol] 2.7 mg/dL Normal 2.3-4.7 [facility] Comment on above: Performed By: #### L AB17, [id number], [id number] ####Wall Steamer: CLARE HUGGINS ([phone])[facility] HOSPITALPrieto WAKEFIELDBarron (SBHLAB)[address] [place] [address] Phosphate [Moles/Vol]on 05-18 Phosphate [Mass/Vol] 2.7 mg/dL 2.3 - 4 .7 mg/dL [facility] Progress Noteon 06-04-2024 Progress Note [facility], Pulmonary Critical Care and Sleep Medicine Patient - James Reyes, Age - 68 y.o. - 1955 Room Number - B2-250/B2-250 B Consulting - Manjinder Sanchez MD Primary Care Physician - Chelle Troncoso MD [facility] # - [id number] Date of Admission - 05/30/2024 8:35 AM [...] (133 kg). His temporal temperature is 35.8 ?C (96.5 ?F) (abnormal). His blood pressure is 144/71 and [...] WC ipratropium-albuterol, 3 mL, Nebulization, TID pancrelipase (Aln-Qmno-Ftux), 1 capsule, Oral, TID WC pantoprazole, 40 [...] all negative Radiology CXR 05/31/2024 IMPRESSION: 1. Lines/Tubes/Devices/Franco dware: Leads noted. Please [...] nurse and patient. Questions and concerns addressed. Normal [facility] Progress Note PHYSICAL THERAPY [facility] Treatment Note Name/MRN: James Reyes ([id number]) Date of : 1955 Age: 68 y.o. Room/Bed: B2-250/B2-250 B Visit #: 1 out of 5 visits Discharge Recommendation: [facility] Facility Equipment Needed: (TBD by facility) Prior [...] Sr Fall Risk Score: 25 (Low Risk) Precautions/Restriction s: Fall Precautions Overall Cognitive Status: Exceptions - [...] order to demonstrate decreased risk of falling. (Pr (more content not included)... Normal [facility] 30on 06-03-2024 30 Problem: Knowledge Deficit Goal: Patient/family/caregive r demonstrates understanding of disease process, treatment plan, [...] Interventions Goal: Promote nutritional intake Outcome: Progressing Normal [facility] CALCIUM, IONIZEDon CALCIUM IONIZED 4.70 mg/dL Normal 4.30-5.20 [facility] Comment on above: Performed By: #### L AB54 ####Wall Steamer: CLARE HUGGINS ([phone])[facility]OSPITALPrieto [facility] HEALTHCAREBERNADINE (SBHLAB)[address] [place] [address] PH, IONIZED CALCIUM 7.33 Normal 7.31-7.46 [facility] Comment on above: Performed By: #### L AB54 ####Wall Steamer: CLARE HUGGINS ([phone])[facility] (SBHLAB)[address] [place] [address] CBC (HEMOGRAM)on 06-03-2024 Erythrocyte distribution width (RBC) [Ratio] 15.1 % High 11.5-15.0 [facility] Comment on above: Performed By: #### L AB294 ####Wall Steamer: CLARE HUGGINS ([phone])[facility] (SBHLAB)[address] [place] [address] Hematocrit (Bld) [Volume fraction] 30.6 % Low 40.0-52.0 [facility] Comment on above: Performed By: #### L AB294 ####Wall Steamer: CLARE HUGGINS ([phone])[facility] (SBHLAB)[address] [place] [address] Hemoglobin (Bld) [Mass/Vol] 9.2 g/dL Low 13.0-18.0 [facility] Comment on above: Performed By: #### L AB294 ####Wall Steamer: CLARE HUGGINS ([phone])[facility] (SBHLAB)[address] MCH (RBC) [Entitic mass] 28.6 pg Normal 26.0-34.0 [facility] Comment on above: Performed By: #### L AB294 ####Wall Steamer: CLARE HUGGINS ([phone])[facility]ITALA [place] (SBHLAB)[address] MCHC 30.1 % Low 30.5-36.0 [facility] Comment on above: Performed By: #### L AB294 ####Wall Steamer: CLARE HUGGINS ([id number])[facility]ITALA [place] (SBHLAB)[address] MCV (RBC) [Entitic vol] 95.0 fL Normal 77.0-99.0 [facility] Comment on above: Performed By: #### L AB294 ####Wall Steamer: CLARE HUGGINS ([phone])[facility]OS[facility]ITALPrieto [place] (SBHLAB)[address] Platelet mean volume (Bld) [Entitic vol] 10.7 fL Normal 9.0-12.7 [facility] Comment on above: Performed By: #### L AB294 ####Wall Steamer: CLARE HUGGINS ([id number])[facility]ITALA [place] (SBHLAB)[address] Platelets (Bld) [#/Vol] 197 10*3/uL Normal 140-440 [facility] Comment on above: Performed By: #### L AB294 ####Wall Steamer: CLARE HUGGINS ([id number])[facility]ITALA [place] (SBHLAB)[address] RBC (Bld) [#/Vol] 3.22 10*6/uL Low 4.40-5.90 [facility] Comment on above: Performed By: #### L AB294 ####Wall Steamer: CLARE HUGGINS ([phone])[facility]ITALA [place] (SBHLAB)[address] WBC (Bld) [#/Vol] 6.1 10*3/uL Normal 3.6-10.7 [facility] Comment on above: Performed By: #### L AB294 ####Wall Steamer: CLARE HUGGINS ([phone])[facility]ERALDHON[facility] (SBHLAB)[address] CBC panel Auto (Bld)on 06-03 Erythrocyte distribution width (RBC) [Ratio] 15.1 % High 11.5 - 15.0 % [facility] Hematocrit (Bld) [Volume fraction] 30.6 % Low 40.0 - 52.0 % [facility] Hemoglobin (Bld) [Mass/Vol] 9.2 g/dL Low 13.0 - 18.0 g/dL [facility] Interpretation and review of laboratory results Abnormal [facility] MCH (RBC) [Entitic mass] 28.6 pg 26. 0 - 34.0 pg [facility] MCHC (RBC) [Mass/Vol] 30.1 % Low 30.5 - 36.0 % [facility] MCV (RBC) [Entitic vol] 95 fL 77.0 - 99.0 fL [facility] Platelet mean volume (Bld) [Entitic vol] 10.7 fL 9.0 - 12.7 fL [facility] Platelets (Bld) [#/Vol] 197 10*3/uL 140 - 440 10*3/uL [facility] RBC (Bld) [#/Vol] 3.22 10*6/uL Low 4.40 - 5.9 0 10*6/uL [facility] WBC (Bld) [#/Vol] 6.1 10*3/uL 3.6 - 10.7 10*3/uL [facility] COMPREHENSIVE METABOLIC PANE Cricket 06-03-2024 Albumin [Mass/Vol] 2.7 g/dL Low 3.4-4.8 [facility] Comment on above: Performed By: #### L AB17, MCU352, OXD082 ####Wall Steamer: CLARE HUGGINS ([id number])[facility]ERALDHON[facility]HE[facility] (SBHLAB)[address] [place] [address] [place] ALP [Catalytic activity/Vol] 56 U/L Normal 40-150 [facility] Comment on above: Performed By: #### Joyce ABJaime, [id number], [id number] ####Wall Steamer: CLARE HUGGINS ([id number])[facility]ITALA [place] (SBHLAB)[address] ALT [Catalytic activity/Vol] 10 U/L Normal <40 [facility] Comment on above: Performed By: #### Joyce AB17, UTD106, VLG096 ####Wall Steamer: CLARE HUGGINS ([id number])[facility]ITALA [facility] (SBHLAB)[address] Anion gap [Moles/Vol] 5 mmol/L Normal 3-13 [facility] Comment on above: Performed By: #### Joyce ANDRE, WLM151, HVJ703 ####Wall Steamer: CLARE HUGGINS ([id number])[facility] (SBHLAB)[address] AST [Catalytic activity/Vol] 14 U/L Normal <34 [facility] Comment on above: Performed By: #### Joyce ANDRE, UUE241, HAR294 ####Wall Steamer: CLARE HUGGINS ([phone])[facility]ITALA [facility] (SBHLAB)[address] Bilirubin [Mass/Vol] 0.2 mg/dL Normal <1.2 [facility] Comment on above: Performed By: #### Joyce ANDRE, GWL953, AGA652 ####Wall Steamer: CLARE HUGGINS ([phone])[facility]ITALA [place] (SBHLAB)[address] Calcium [Mass/Vol] 8.3 mg/dL Low 8.8-10.0 [facility] Comment on above: Performed By: #### L AB17, UOB882, ZNL544 ####Wall Steamer: CLARE HUGGINS ([phone])[facility]ITALA [facility] (SBHLAB)[address] [place] [address] [place] Chloride [Moles/Vol] 105 mmol/L Normal 98-107 [facility] Comment on above: Performed By: #### L AB17, [id number], LRD346 ####Wall Steamer: CLARE HUGGINS ([id number])[facility] (SBHLAB)[address] CO2 [Moles/Vol] 27 mmol/L Normal 23-31 [facility] Comment on above: Performed By: #### L AB17, CDW256, CCS714 ####Wall Steamer: CLARE HUGGINS ([id number])[facility] ([facility])[address] Creatinine [Mass/Vol] 1.03 mg/dL Normal 0.72-1.25 [facility] Comment on above: Performed By: #### L AB17, IYQ660, QJT217 ####Wall Steamer: CLARE HUGGINS ([phone])[facility] ([facility])[address] GLOMERULAR FILTRATION RATE ML/MIN/1.73 SQ M.PREDICTED 79.6 mL/min/1.73m*2 Normal >60.0 [facility] Comment on above: Result Comment: Calc ulation based on the Chronic Kidney Disease Epidemiology Collaboration (CKD-EPI) equation refit without adjustment for race Performed By: #### L AB17, YRQ645, OSL659 ####Wall Steamer: CLARE HUGGINS ([id number])[facility] (SBHLAB)[address] Glucose [Mass/Vol] 203 mg/dL High 82-115 [facility] Comment on above: Performed By: #### L AB17, OLB622, LGP949 ####Wall Steamer: CLARE HUGGINS ([id number])[facility] ([facility])[address] Potassium [Moles/Vol] 4.3 mmol/L Normal 3.5-5.1 [facility] Comment on above: Result Comment: [facility] potassium values may be up to 0.5 mmol/L lower than serum values. Performed By: #### L AB17, STS862, NKF177 ####Wall Steamer: CLARE HUGGINS ([phone])[facility] (SBHLAB)[address] Protein [Mass/Vol] 5.1 g/dL Low 6.4-8.3 [facility] Comment on above: Performed By: #### L AB17, CEX653, ONM724 ####Wall Steamer: CLARE HUGGINS ([id number])[facility] (SBHLAB)[address] Sodium [Moles/Vol] 137 mmol/L Normal 136-145 [facility] Comment on above: Performed By: #### L AB17, PXF807, VTL087 ####Wall Steamer: CLARE HUGGINS ([id number])[facility] (SBHLAB)[address] Urea nitrogen [Mass/Vol] 37 mg/dL High 9-23 [facility] Comment on above: Performed By: #### L AB17, DNA954, DEK591 ####Wall Steamer: CLARE HUGGINS ([id number])[facility] (SBHLAB)[address] [place] [address] Calcium.ionized [Moles/Vol]o n 06-03-2024 Calcium.ionized (Bld) [Moles/Vol] 4.7 mg/dL 4.30 - 5.20 mg/dL [facility] Interpretation and review of laboratory results Normal [facility] PH, IONIZED CALCIUM 7.33 7.31 - 7.46 [facility] Comprehensive metabolic 1998 panelon 06-03-2024 Albumin [Mass/Vol] 2.7 g/dL Low 3.4 - 4.8 g/dL [facility] ALP [Catalytic activity/Vol] 56 U/L 40 - 150 U/L [facility] ALT [Catalytic activity/Vol] 10 U/L NINF - 40 U/L [facility] Anion gap [Moles/Vol] 5 mmol/L 3 - 13 mmol/L [facility] AST [Catalytic activity/Vol] 14 U/L [facility] U/L [facility] Bilirubin [Mass/Vol] 0.2 mg/dL NINF - 1.2 mg/dL [facility] Calcium [Mass/Vol] 8.3 mg/dL Low 8.8 - 10. 0 mg/dL [facility] Chloride [Moles/Vol] 105 mmol/L 98 - 10 7 mmol/L [facility] CO2 [Moles/Vol] 27 mmol/L 23 - 31 mmol/L [facility] Creatinine [Mass/Vol] 1.03 mg/dL 0.72 - 1.25 mg/dL [facility] GFR/1.73 sq M.predicted (S/P/Bld) [Vol rate/Area] 79.6 mL/min - PINF [facility] Comment on above: Calculation based on the Chronic Kidney Disease Epidemiology Collaboration (CKD-EPI) equation refit without adjustment for race Glucose [Mass/Vol] 203 mg/dL High 82 - 115 mg/dL [facility] Potassium [Moles/Vol] 4.3 mmol/L 3.5 - 5.1 mmol/L [facility] Comment on above: Plasma potassium adriana ues may be up to 0.5 mmol/L lower than serum values. Protein [Mass/Vol] 5.1 g/dL Low 6.4 - 8.3 g/dL [facility] Sodium [Moles/Vol] 137 mmol/L 136 - 145 mmol/L [facility] Urea nitrogen [Mass/Vol] 37 mg/dL High 9 - 23 mg/dL [facility] Laboratory - Chemistry and C hemistry - challengeon 06-03-2024 Glucose [Mass/Vol] 351 mg/dL High 70 - 100 mg/dL [facility] Glucose [Mass/Vol] 233 mg/dL High 70 - 100 mg/dL [facility] Glucose [Mass/Vol] 172 mg/dL High 70 - 100 mg/dL [facility] Glucose [Mass/Vol] 140 mg/dL High 70 - 100 mg/dL [facility] Magnesium [Mass/Vol] 2.1 mg/dL 1.6 - 2 .6 mg/dL [facility] MAGNESIUMon 06-03-2024 Magnesium [Mass/Vol] 2.1 mg/dL Normal 1.6-2.6 [facility] Comment on above: Result Comment: REX Hernandez COMMENTS: Higher values can be expected in females during menses. Performed By: #### L AB17, [id number], EKJ008 ####Wall Steamer: CLARE HUGGINS ([id number])[facility] HOSPITALPrieto GERALDBERNADINE (SBHLAB)[address] [place] [address] [place] Magnesium [Mass/Vol]on 06-03 Interpretation and review of laboratory results Normal [facility] Higher values can be expected in females during menses. [facility] [employer] No Panel Informationon 06-03 Interpretation and review of laboratory results Abnormal [facility] [employer] Performed by: [facility], [address] [place] [id number] CLIA ID: [id number] [facility] [employer] [facility] Interpretation and review of laboratory results Abnormal [facility] [employer] Performed by: [facility], [address] [place] [id number] CLIA ID: [id number] [facility] [employer] [facility] Interpretation and review of laboratory results Abnormal [facility] [employer] Performed by: [facility], [address] [place] [id number] CLIA ID: [id number] [facility] [employer] [facility] Interpretation and review of laboratory results Abnormal [facility] [employer] Performed by: [facility], [address] [place] [id number] CLIA ID: [id number] [facility] Interpretation and review of laboratory results Abnormal [facility] Nursing Noteon 06-03-2024 Nursing Note Attempted to wean patient to 2L NC. Patient sats dropped to 87%. 88-90% on 3L NC. Patient left on 4L NC at this time with continuous pulse ox showing 94%. Instructed to call out with any needs. Normal [facility] PHOSPHORUSon 06-03-2024 Phosphate [Mass/Vol] 2.0 mg/dL Low 2.3-4.7 [facility] Comment on above: Performed By: #### L AB17, KRD316, LID188 ####Wall Steamer: CLARE HUGGINS ([phone])[facility] HOSPITALPrieto JARABERNADINE (SBHLAB)[address] [place] [address] [place] Phosphate [Moles/Vol]on 05-18 Phosphate [Mass/Vol] 2 mg/dL Low 2.3 - 4 .7 mg/dL [facility] Progress Noteon 06-03-2024 Progress Note [facility], Pulmonary Critical Care and Sleep Medicine Patient - James Reyes, Age - 68 y.o. - 1955 Room Number - B2-266/B2-266 A Consulting - Manjinder Sanchez MD Primary Care Physician - [id number] Date of Admission - 05/30/2024 8:35 AM Hospital Day - 4 Subjective/Events Past 24 hours/ROS Following for resp failure Awake, says his breathing is better, still some cough and sneezing Says he doesn't currently wear home O2, I weaned myself off of it" Knows he has MINERVA, says he can't tolerate the mask Still smoking Objective Vitals height is 6' (1.829 m) and weight is 298 lb 11.6 oz (135 kg). His temporal temperature is 30.4 ?C (86.7 ?F) (abnormal). His blood pressure is 132/65 and [...] TID mupirocin, 1 Application, Nasal, BID pancrelipase (Eap-Buyz-Lhlu), 1 capsule, Oral, TID WC pantoprazole, 40 [...] nurse and patient. Questions and concerns addressed. [facility] 30on 06-02-2024 30 Problem: Knowledge Deficit Goal: Patient/family/caregive r demonstrates understanding of disease process, treatment plan, [...] Interventions Goal: Promote nutritional intake Outcome: Progressing Normal [facility] 36on 06-02-2024 36 Name of Caller: [facility] Physician requesting Consult: Laura Patient Location (facility name, room, bed number): [facility] Patient Diagnosis/Reason for Consult: Respiratory Failure on Bipap Provider being paged: James Time page was sent: 7:12 Department of provider being paged: Pulmonology Page Content: Inpatient Pulmonary [facility] resp failure on bipap Message sent via Secure Chat [facility] BASIC METABOLIC PANELon 05-18 Anion gap [Moles/Vol] 6 mmol/L Normal 3-13 [facility] Comment on above: Performed By: #### L AB15, WKM151, WUQ062 ####Wall Steamer: CLARE HUGGINS ([phone])[facility] (SBHLAB)[address] [place] [address] Calcium [Mass/Vol] 8.3 mg/dL Low 8.8-10.0 [facility] Comment on above: Performed By: #### L AB15, ACB864, GEF879 ####Wall Steamer: CLARE HUGGINS ([id number])[facility] (SBHLAB)[address] Chloride [Moles/Vol] 106 mmol/L Normal 98-107 [facility] Comment on above: Performed By: #### L AB15, RGT371, FNC877 ####Wall Steamer: CLARE HUGGINS ([phone])[facility] (SBHLAB)[address] [place] [address] [place] CO2 [Moles/Vol] 24 mmol/L Normal 23-31 [facility] Comment on above: Performed By: #### L AB15, ISO407, KYA440 ####Wall Steamer: CLARE HUGGINS ([phone])[facility] (SBHLAB)[address] Creatinine [Mass/Vol] 1.20 mg/dL Normal 0.72-1.25 [facility] Comment on above: Performed By: #### L AB15, DID614, KZY021 ####Wall Steamer: CLARE HUGGINS ([phone])[facility] ([facility])[address] [place] [address] GLOMERULAR FILTRATION RATE ML/MIN/1.73 SQ M.PREDICTED 66.3 mL/min/1.73m*2 Normal >60.0 [facility] Comment on above: Result Comment: Calc ulation based on the Chronic Kidney Disease Epidemiology Collaboration (CKD-EPI) equation refit without adjustment for race Performed By: #### L AB15, GCI837, MZF180 ####Wall Steamer: CLARE HUGGINS ([phone])[facility] ([facility])[address] [place] [address] Glucose [Mass/Vol] 224 mg/dL High 82-115 [facility] Comment on above: Performed By: #### L AB15, ZFE365, NWP161 ####Wall Steamer: CLARE HUGGINS ([phone])[facility] ([facility])[address] [place] [address] [place] Potassium [Moles/Vol] 4.6 mmol/L Normal 3.5-5.1 [facility] Comment on above: Result Comment: [facility] potassium values may be up to 0.5 mmol/L lower than serum values. Performed By: #### L AB15, JSC932, NLO174 ####Wall Steamer: CLARE HUGGINS ([phone])[facility]ITALA [place] (SBHLAB)[address] Sodium [Moles/Vol] 136 mmol/L Normal 136-145 [facility] Comment on above: Performed By: #### L AB15, [id number], [id number] ####Wall Steamer: CLARE HUGGINS ([phone])[facility]DL[facility]ITAL[facility] (SBHLAB)[address] Urea nitrogen [Mass/Vol] 50 mg/dL High 9-23 [facility] Comment on above: Performed By: #### L AB15, [id number], [id number] ####Wall Steamer: CLARE HUGGINS ([phone])[facility] (SBHLAB)[address] Basic metabolic 1998 panelon 06-02-2024 Anion gap [Moles/Vol] 6 mmol/L 3 - 13 mmol/L [facility] Calcium [Mass/Vol] 8.3 mg/dL Low 8.8 - 10. 0 mg/dL [facility] Chloride [Moles/Vol] 106 mmol/L 98 - 10 7 mmol/L [facility] CO2 [Moles/Vol] 24 mmol/L 23 - 31 mmol/L [facility] Creatinine [Mass/Vol] 1.2 mg/dL 0.72 - 1.25 mg/dL [facility] GFR/1.73 sq M.predicted (S/P/Bld) [Vol rate/Area] 66.3 mL/min - PINF [facility] Comment on above: Calculation based on the Chronic Kidney Disease Epidemiology Collaboration (CKD-EPI) equation refit without adjustment for race Glucose [Mass/Vol] 224 mg/dL High 82 - 115 mg/dL [facility] Interpretation and review of laboratory results Abnormal [facility] Potassium [Moles/Vol] 4.6 mmol/L 3.5 - 5.1 mmol/L [facility] Comment on above: Plasma potassium adriana ues may be up to 0.5 mmol/L lower than serum values. Sodium [Moles/Vol] 136 mmol/L 136 - 145 mmol/L [facility] Urea nitrogen [Mass/Vol] 50 mg/dL High 9 - 23 mg/dL [facility] CALCIUM, IONIZEDon CALCIUM IONIZED 4.80 mg/dL Normal 4.30-5.20 [facility] Comment on above: Performed By: #### L [id number] ####Wall Steamer: CLARE MERCERKRISTYN ([id number])[facility] (SBHLAB)[address] PH, IONIZED CALCIUM 7.32 Normal 7.31-7.46 [facility] Comment on above: Performed By: #### L [id number] ####Wall Steamer: CLARECLAUDIO HUGGINS ([phone])[facility] (SBHLAB)[address] CBC W Auto Differential pane l (Bld)on 06-02-2024 Erythrocyte distribution width (RBC) [Ratio] 15.1 % High 11.5 - 15.0 % [facility] Hematocrit (Bld) [Volume fraction] 29.6 % Low 40.0 - 52.0 % [facility] Hemoglobin (Bld) [Mass/Vol] 8.9 g/dL Low 13.0 - 18.0 g/dL [facility] MCH (RBC) [Entitic mass] 28.6 pg 26. 0 - 34.0 pg [facility] MCHC (RBC) [Mass/Vol] 30.1 % Low 30.5 - 36.0 % [facility] MCV (RBC) [Entitic vol] 95.2 fL 77.0 - 99.0 fL [facility] [employer] Platelet mean volume (Bld) [Entitic vol] 10.4 fL 9.0 - 12.7 fL [facility] Platelets (Bld) [#/Vol] 206 10*3/uL 140 - 440 10*3/uL [facility] [employer] RBC (Bld) [#/Vol] 3.11 10*6/uL Low 4.40 - 5.9 0 10*6/uL [facility] [employer] WBC (Bld) [#/Vol] 7.5 10*3/uL 3.6 - 10.7 10*3/uL [facility] CBC WITH AUTO DIFFERENTIALon 06-02-2024 Erythrocyte distribution width (RBC) [Ratio] 15.1 % High 11.5-15.0 [facility] Comment on above: Performed By: #### L [id number], [id number] ####Wall Steamer: CLARE MERCERKRISTYN ([phone])[facility]ITAL[facility] JARAMYNORN (SBHLAB)[address] Hematocrit (Bld) [Volume fraction] 29.6 % Low 40.0-52.0 [facility] Comment on above: Performed By: #### L [id number], [id number] ####Wall Steamer: CLARE MERCERKRISTYN ([phone])[facility] [place] (SBHLAB)[address] Hemoglobin (Bld) [Mass/Vol] 8.9 g/dL Low 13.0-18.0 [facility] Comment on above: Performed By: #### L [id number], [id number] ####Wall Steamer: CLARE WINTEREVARISTOKRISTYN ([phone])[facility]OSPITALPrieto JARALOVELACE RE[facility]ILITATION HOSPITALN (SBHLAB)[address] MCH (RBC) [Entitic mass] 28.6 pg Normal 26.0-34.0 [facility] Comment on above: Performed By: #### L [id number], [id number] ####Wall Steamer: CLARE MERCERKRISTYN ([phone])[facility]OSPITALPrieto J[facility]ALOVELACE [facility]OSPITALN (SBHLAB)[address] MCHC 30.1 % Low 30.5-36.0 [facility] Comment on above: Performed By: #### L [id number], [id number] ####Wall Steamer: CLARE HUGGINS ([phone])[facility]OS[facility]ITALPrieto [facility]BM[facility]ORN (SBHLAB)[address] MCV (RBC) [Entitic vol] 95.2 fL Normal 77.0-99.0 [facility] Comment on above: Performed By: #### L [id number], [id number] ####Wall Steamer: CLARE HUGGINS ([phone])[facility]OSPITALPrieto J[facility]ALOVEL[facility]ITALN (SBHLAB)[address] Platelet mean volume (Bld) [Entitic vol] 10.4 fL Normal 9.0-12.7 [facility] Comment on above: Performed By: #### L [id number], [id number] ####Wall Steamer: CLARE HUGGINS ([phone])[facility] (SBHLAB)[address] Platelets (Bld) [#/Vol] 206 10*3/uL Normal 140-440 [facility] Comment on above: Performed By: #### L [id number], [id number] ####Wall Steamer: CLARE HUGGINS ([phone])[facility] (SBHLAB)[address] [place] [address] RBC (Bld) [#/Vol] 3.11 10*6/uL Low 4.40-5.90 [facility] Comment on above: Performed By: #### L [id number], [id number] ####Wall Steamer: CLARE HUGGINS ([phone])[facility] (SBHLAB)[address] [place] [address] WBC (Bld) [#/Vol] 7.5 10*3/uL Normal 3.6-10.7 [facility] Comment on above: Performed By: #### L [id number], [id number] ####Wall Steamer: CLARE HUGGINS ([phone])[facility] (SBAB)[address] [place] [address] Calcium.ionized [Moles/Vol]o n 06-02-2024 Calcium.ionized (Bld) [Moles/Vol] 4.8 mg/dL 4.30 - 5.20 mg/dL [facility] Interpretation and review of laboratory results Normal [facility] PH, IONIZED CALCIUM 7.32 7.31 - 7.46 [facility] 06-02-2024 Consult [facility] [place] [address] [place] [address] Patient - James Reyes - 1955 Date [...] apnea) Tobacco abuse Esophagitis, reflux Morbid obesity ([facility]) Type 2 diabetes, uncontrolled, with neuropathy Wound disruption, post-op, skin, initial encounter Uncontrolled type 2 diabetes mellitus with hyperglycemia, with long-term current use of insulin ([facility]) CAD in [place] artery Uncontrolled type 2 diabetes mellitus with complication, with long-term current use of insulin IBS (irritable bowel syndrome) Pseudomonas aeruginosa infection Angina at rest ([facility]) Sternal wound dehiscence USP (current) use of antibiotics Enlarged prostate with lower urinary tract symptoms (LUTS) Hypertensive heart disease COPD (chronic obstructive pulmonary disease) ([facility]) Arthritis of foot, degenerative Hiatal hernia Colitis Chest pain Anemia Colitis, collagenous Gastroesophageal reflux disease without esophagitis Closed head injury, initial encounter Acute hypercapnic respiratory failure ([facility]) Reason for Consult Respiratory failure on BiPAP. [...] Acute kidney injury (HCC) 09/11/2015 CAD in [place] artery 08/08/2017 COPD (chronic obstructive pulmonary disease) ([facility]) Developmental disorder Diabetes mellitus (HCC) Esophageal reflux [...] 07/18/2022 Performed by David Chen MD at [facility] [place] CORONARY ARTERY BYPASS GRAFT FOOT [...] (Non-Medical): No Physical Activity: Not on file Stres (more content not included)... Normal [facility] Laboratory - Chemistry and C hemistry - challengeon 06-02-2024 Glucose [Mass/Vol] 195 mg/dL High 70 - 100 mg/dL [facility] Glucose [Mass/Vol] 148 mg/dL High 70 - 100 mg/dL [facility] Glucose [Mass/Vol] 186 mg/dL High 70 - 100 mg/dL [facility] Glucose [Mass/Vol] 178 mg/dL High 70 - 100 mg/dL [facility] Magnesium [Mass/Vol] 2.4 mg/dL 1.6 - 2 .6 mg/dL [facility] Laboratory - Hematology and Cell countson 06-02-2024 Band form neutrophils (Bld) [#/Vol] 0.1 10*3/uL High NINF - 0.0 10*3/uL [facility] Band form neutrophils/100 WBC (Bld) 1 % High NINF - 0 % [facility] Hypochromia Ql (Bld) Slight Abnormal (none) [facility] Lymphocytes (Bld) [#/Vol] 0.5 10*3/uL Low 1.0 - 4.3 10*3/uL [facility] Lymphocytes/100 WBC (Bld) 7 % Low 15 - 45 % [facility] Monocytes (Bld) [#/Vol] 0.2 10*3/uL 0.0 - 0.9 10*3/uL [facility] Monocytes/100 WBC (Bld) 2 % Low 5 - 13 % [facility] Neutrophils (Bld) [#/Vol] 6.8 10*3/uL 1.8 - 7.5 10*3/uL [facility] Ovalocytes LM Ql (Bld) Moderate Abnormal (none) [facility] Poikilocytosis LM Ql (Bld) Slight Abnormal (none) [facility] Polychromasia LM Ql (Bld) Slight Abnormal (none) [facility] RBC morphology finding Nom (Bld) abnormal [facility] Segmented neutrophils/100 WBC (Bld) 90 % High 38 - 82 % [facility] MAGNESIUMon 06-02-2024 Magnesium [Mass/Vol] 2.4 mg/dL Normal 1.6-2.6 [facility] Comment on above: Result Comment: REX Hernandez COMMENTS: Higher values can be expected in females during menses. Performed By: #### L [id number], [id number], [id number] ####Wall Steamer: CLARE HUGGINS ([phone])[facility] ([facility])[address] [place] [address] MANUAL DIFFERENTIAL (CELLAVI JARROD)on 06-02-2024 BAND NEUTROPHILS TOTAL PER COUNTED LEUKOCYTES BY MANUAL COUNT 1 Normal [facility] Comment on above: Performed By: #### L [id number], [id number] ####Wall Steamer: CLARE HUGGINS ([phone])[facility] (SBHLAB)[address] [place] [address] [place] BANDS (10*3/UL) IN BLOOD-CELLAVISION 0.1 10*3/uL High <=0.0 [facility] Comment on above: Performed By: #### L [id number], [id number] ####Wall Steamer: CLARE HUGGINS ([phone])[facility] (SBHLAB)[address] BASOPHILS TOTAL PER COUNTED LEUKOCYTES BY MANUAL COUNT Normal [facility] Comment on above: Performed By: #### L [id number], [id number] ####Wall Steamer: CLARE HUGGINS ([phone])[facility] [place] (SBHLAB)[address] BLASTS TOTAL PER COUNTED LEUKOCYTES BY MANUAL COUNT Normal [facility] Comment on above: Performed By: #### L [id number], [id number] ####Wall Steamer: CLARE HUGGINS ([phone])[facility] (SBHLAB)[address] EOSINOPHILS TOTAL PER COUNTED LEUKOCYTES BY MANUAL COUNT Normal [facility] Comment on above: Performed By: #### L [id number], [id number] ####Wall Steamer: CLARE HUGGINS ([id number])[facility] [place] (SBHLAB)[address] HYPOCHROMIA (PRESENCE) IN BLOOD BY LIGHT MICROSCOPY Slight Abnormal (none) [facility] Comment on above: Performed By: #### L [id number], [id number] ####Wall Steamer: CLARE HUGGINS ([phone])[facility] [place] (SBHLAB)[address] LYMPHOCYTES (10*3/UL) IN BLOOD-CELLAVISION 0.5 10*3/uL Low 1.0-4.3 [facility] Comment on above: Performed By: #### L [id number], [id number] ####Wall Steamer: CLARE HUGGINS ([phone])[facility] (SBHLAB)[address] [place] [address] [place] LYMPHOCYTES TOTAL PER COUNTED LEUKOCYTES BY MANUAL COUNT 7 Normal [facility] Comment on above: Performed By: #### L [id number], [id number] ####Wall Steamer: CLARE MERCERKRISTYN ([phone])[facility] (SBHLAB)[address] [place] [address] [place] LYMPHOCYTES/100 LEUKOCYTES IN BLOOD-CELLAVISION 7 % Low 15-45 [facility] Comment on above: Performed By: #### L [id number], [id number] ####Wall Steamer: CLARE MERCERKRISTYN ([phone])[facility] [place] (SBHLAB)[address] [place] [address] [place] METAMYELOCYTES TOTAL PER COUNTED LEUKOCYTES BY MANUAL COUNT Normal [facility] Comment on above: Performed By: #### L [id number], [id number] ####Wall Steamer: CLARE HUGGINS ([phone])[facility] [place] (SBHLAB)[address] [place] [address] [place] MONOCYTES (10*3/UL) IN BLOOD-CELLAVISION 0.2 10*3/uL Normal 0.0-0.9 [facility] Comment on above: Performed By: #### L [id number], [id number] ####Wall Steamer: CLARE HUGGINS ([phone])[facility] [place] (SBHLAB)[address] [place] [address] [place] MONOCYTES TOTAL PER COUNTED LEUKOCYTES BY MANUAL COUNT 2 Normal [facility] Comment on above: Performed By: #### L [id number], [id number] ####Wall Steamer: CLARE HUGGINS ([phone])[facility] [place] (SBHLAB)[address] [place] [address] [place] MONOCYTES/100 LEUKOCYTES IN BLOOD-ROGER 2 % Low 5-13 [facility] Comment on above: Performed By: #### L [id number], [id number] ####Wall Steamer: CLARE WINTERVERN ([phone])[facility] [place] (SBHLAB)[address] [place] [address] [place] MYELOCYTES COUNTED BY MANUAL COUNT Normal [facility] Comment on above: Performed By: #### L [id number], [id number] ####Wall Steamer: CLARE WINTERVERN ([phone])[facility] [place] (SBHLAB)[address] NEUTROPHILS BAND FORM/100 LEUKOCYTES IN BLOOD-CELLAVISI 1 % High <=0 [facility] Comment on above: Performed By: #### L [id number], [id number] ####Wall Steamer: CLARE WINTERVERN ([phone])[facility] [place] (SBHLAB)[address] NEUTROPHILS TOTAL PER COUNTED LEUKOCYTES BY MANUAL COUNT 90 Normal [facility] Comment on above: Performed By: #### L [id number], [id number] ####Wall Steamer: CLARE WINTERVERN ([phone])[facility] [place] (SBHLAB)[address] [place] [address] [place] OVALOCYTES PRESENCE IN BLOOD BY LIGHT MICROSCOPY Moderate Abnormal (none) [facility] Comment on above: Performed By: #### L [id number], [id number] ####Wall Steamer: CLARE HUGGINS ([phone])[facility] [place] (SBHLAB)[address] [place] [address] [place] POIKILOCYTOSIS (PRESENCE) IN BLOOD BY LIGHT MICROSCOPY Slight Abnormal (none) [facility] Comment on above: Performed By: #### L [id number], [id number] ####Wall Steamer: CLARE HUGGINS ([phone])[facility] [place] (SBHLAB)[address] [place] [address] [place] POLYCHROMASIA IN BLOOD BY LIGHT MICROSCOPY Slight Abnormal (none) [facility] Comment on above: Performed By: #### L [id number], [id number] ####Wall Steamer: CLARE HUGGINS ([phone])[facility] (SBHLAB)[address] PROMYELOCYTES TOTAL PER COUNTED LEUKOCYTES BY MANUAL COUNT Normal [facility] Comment on above: Performed By: #### L [id number], [id number] ####Wall Steamer: CLARE HUGGINS ([phone])[facility] [place] (SBHLAB)[address] RBC MORPHOLOGY IN BLOOD abnormal Normal [facility] Comment on above: Performed By: #### L [id number], [id number] ####Wall Steamer: CLARE HUGGINS ([phone])[facility] [place] (SBHLAB)[address] SEGMENTED NEUTROPHILS (10*3/UL) IN BLOOD-CELLAVISION 6.8 10*3/uL Normal 1.8-7.5 [facility] Comment on above: Performed By: #### L [id number], [id number] ####Wall Steamer: CLARE HUGGINS ([phone])[facility] [place] (SBHLAB)[address] [place] [address] [place] SEGMENTED NEUTROPHILS/100 LEUKOCYTES-CE 90 % High 38-82 [facility] Comment on above: Performed By: #### L [id number], [id number] ####Wall Steamer: CLARE HUGGINS ([phone])[facility] [place] (SBHLAB)[address] UNCLASSIFIED CELLS TOTAL PER COUNTED LEUKOCYTES BY MANUAL COUNT [facility] Comment on above: Performed By: #### L [id number], [id number] ####Wall Steamer: CLARE HUGGINS ([phone])[facility] [place] (SBHLAB)[address] [place] [address] [place] VARIANT LYMPHOCYTES TOTAL PER COUNTED LEUKOCYTES BY MANUAL COUNT [facility] Comment on above: Performed By: #### L [id number], [id number] ####Wall Steamer: CLARE HUGGINS ([phone])[facility] HOSPITALPrieto [place] (SBHLAB)[address] [place] [address] [place] Magnesium [Mass/Vol]on 06-02 Higher values can be expected in females during menses. [facility] No Panel Informationon 06-02 Interpretation and review of laboratory results Abnormal [facility] Performed by: [facility], [address] [place] [address] CLIA ID: [id number] [facility] Interpretation and review of laboratory results Abnormal [facility] Performed by: [facility], [address] [place] [address] CLIA ID: [id number] [facility] Interpretation and review of laboratory results Abnormal [facility] Performed by: [facility], [address] [place] [address] CLIA ID: [id number] [facility] Interpretation and review of laboratory results Abnormal [facility] Performed by: [facility], [address] [place] [address] CLIA ID: [id number] [facility] Atypical Lymphocytes Manual [facility] Bands Manual 1 [facility] Basophils Manual [facility] He alth Blasts Manual [facility] Healt h Eosinophils Manual [facility] Interpretation and review of laboratory results Abnormal [facility] Lymphocytes Manual 7 [facility] Metamyelocytes Manual [facility] Monocytes Manual 2 [facility] alth Myelocytes Manual [facility] ealth Neutrophils Manual 90 [facility] Promyelocytes Manual [facility] Unclassified Cells, Manual [facility] Interpretation and review of laboratory results Normal [facility] PHOSPHORUSon 06-02-2024 Phosphate [Mass/Vol] 2.5 mg/dL Normal 2.3-4.7 [facility] Comment on above: Performed By: #### L [id number], [id number], [id number] ####Wall Steamer: CLARE HUGGINS ([phone])[facility]ITAL[facility] [place] (SBHLAB)[address] [place] [address] [place] Phosphate [Moles/Vol]on 05-18 Phosphate [Mass/Vol] 2.5 mg/dL 2.3 - 4 .7 mg/dL [facility] Progress Noteon 06-02-2024 Progress Note Pt transferred out t o usacs service from icu. Normal [facility] 30on 06-01-2024 30 Problem: Knowledge Deficit Goal: Patient/family/caregive r demonstrates understanding of disease process, treatment plan, [...] Interventions Goal: Promote nutritional intake Outcome: Progressing Normal [facility] BASIC METABOLIC PANELon 05-18 Anion gap [Moles/Vol] 6 mmol/L Normal 3-13 [facility] Comment on above: Performed By: #### L [id number], [id number], LAB15 ####Wall Steamer: CLARE HUGGINS ([phone])[facility] (SBHLAB)[address] Calcium [Mass/Vol] 8.5 mg/dL Low 8.8-10.0 [facility] Comment on above: Performed By: #### L [id number], [id number], LAB15 ####Wall Steamer: CLARE HUGGINS ([phone])[facility] (SBHLAB)[address] [place] [address] [place] Chloride [Moles/Vol] 105 mmol/L Normal 98-107 [facility] Comment on above: Performed By: #### L AB103, [id number], LAB15 ####Wall Steamer: CLARE HUGGINS ([phone])[facility] (SBHLAB)[address] [place] [address] [place] CO2 [Moles/Vol] 22 mmol/L Low 23-31 [facility] Comment on above: Performed By: #### L AB103, [id number], LAB15 ####Wall Steamer: CLARE HUGGINS ([phone])[facility] (SBHLAB)[address] Creatinine [Mass/Vol] 1.43 mg/dL High 0.72-1.25 [facility] Comment on above: Performed By: #### L AB103, [id number], LAB15 ####Wall Steamer: CLARE HUGGINS ([phone])[facility]FIELD[facility] (SBHLAB)[address] [place] [address] [place] GLOMERULAR FILTRATION RATE ML/MIN/1.73 SQ M.PREDICTED 53.7 mL/min/1.73m*2 Low >60.0 [facility] Comment on above: Result Comment: Calc ulation based on the Chronic Kidney Disease Epidemiology Collaboration (CKD-EPI) equation refit without adjustment for race Performed By: #### L AB103, [id number], LAB15 ####Wall Steamer: CLARE HUGGINS ([id number])[facility]ITAL[facility] [place]ERNAD[place] (SBHLAB)[address] Glucose [Mass/Vol] 253 mg/dL High 82-115 [facility] Comment on above: Performed By: #### L AB103, [id number], LAB15 ####Wall Steamer: CLARE HUGGINS ([phone])[facility]ITAL[facility] [place] (SBHLAB)[address] Potassium [Moles/Vol] 4.8 mmol/L Normal 3.5-5.1 [facility] Comment on above: Result Comment: [facility] potassium values may be up to 0.5 mmol/L lower than serum values. Performed By: #### L AB103, [id number], LAB15 ####Wall Steamer: CLARE HUGGINS ([phone])[facility] JARABERNADINE (SBHLAB)[address] [place] [address] [place] Sodium [Moles/Vol] 133 mmol/L Low 136-145 [facility] Comment on above: Performed By: #### L AB103, [id number], LAB15 ####Wall Steamer: CLARE HUGGINS ([phone])[facility] [place] (SBHLAB)[address] [place] [address] [place] Urea nitrogen [Mass/Vol] 62 mg/dL High 9-23 [facility] Comment on above: Performed By: #### L AB103, [id number], LAB15 ####Wall Steamer: CLARE HUGGINS ([phone])[facility]AL[facility] (SBHLAB)[address] Basic metabolic 1998 panelon 06-01-2024 Anion gap [Moles/Vol] 6 mmol/L 3 - 13 mmol/L [facility] Calcium [Mass/Vol] 8.5 mg/dL Low 8.8 - 10. 0 mg/dL [facility] Chloride [Moles/Vol] 105 mmol/L 98 - 10 7 mmol/L [facility] CO2 [Moles/Vol] 22 mmol/L Low 23 - 31 mmol/L [facility] Creatinine [Mass/Vol] 1.43 mg/dL High 0.72 - 1.25 mg/dL [facility] GFR/1.73 sq M.predicted (S/P/Bld) [Vol rate/Area] 53.7 mL/min Low - PINF [facility] Comment on above: Calculation based on the Chronic Kidney Disease Epidemiology Collaboration (CKD-EPI) equation refit without adjustment for race Glucose [Mass/Vol] 253 mg/dL High 82 - 115 mg/dL [facility] Interpretation and review of laboratory results Abnormal [facility] Potassium [Moles/Vol] 4.8 mmol/L 3.5 - 5.1 mmol/L [facility] Comment on above: Plasma potassium adriana ues may be up to 0.5 mmol/L lower than serum values. Sodium [Moles/Vol] 133 mmol/L Low 136 - 145 mmol/L [facility] Urea nitrogen [Mass/Vol] 62 mg/dL High 9 - 23 mg/dL [facility] CALCIUM, IONIZEDon CALCIUM IONIZED 4.60 mg/dL Normal 4.30-5.20 [facility] Comment on above: Performed By: #### L AB54 ####Wall Steamer: CLARE HUGGINS ([phone])[facility] (SBHLAB)[address] PH, IONIZED CALCIUM 7.31 Normal 7.31-7.46 [facility] Comment on above: Performed By: #### L AB54 ####Wall Steamer: CLARE HUGGINS ([phone])[facility] [facility] (SBAB)[address] [place] [address] CBC W Auto Differential pane l (Bld)Ordered By: Nancy Kam on 06-01-2024 Basophils (Bld) [#/Vol] 0 10*3/uL 0.0 - 0.2 10*3/uL [facility] Basophils/100 WBC (Bld) 0.1 % 0.0 - 2.0 % [facility] Eosinophils (Bld) [#/Vol] 0 10*3/uL 0.0 - 0.5 10*3/uL [facility] Eosinophils/100 WBC (Bld) 0 % 0.0 - 6.0 % [facility] Erythrocyte distribution width (RBC) [Ratio] 15.4 % High 11.5 - 15.0 % [facility] Hematocrit (Bld) [Volume fraction] 30.7 % Low 40.0 - 52.0 % [facility] Hemoglobin (Bld) [Mass/Vol] 9.2 g/dL Low 13.0 - 18.0 g/dL [facility] Immature granulocytes (Bld) [#/Vol] 0.1 10*3/uL High NINF - 0.1 10*3/uL [facility] Immature granulocytes/100 WBC (Bld) 0.7 % 0.0 - 2.0 % [facility] Interpretation and review of laboratory results Abnormal [facility] Lymphocytes (Bld) [#/Vol] 0.6 10*3/uL Low 1.0 - 4.3 10*3/uL [facility] Lymphocytes/100 WBC (Bld) 6.9 % Low 15.0 - 45.0 % [facility] MCH (RBC) [Entitic mass] 29.1 pg 26. 0 - 34.0 pg [facility] MCHC (RBC) [Mass/Vol] 30 % Low 30.5 - 36.0 % [facility] MCV (RBC) [Entitic vol] 97.2 fL 77.0 - 99.0 fL [facility] Monocytes (Bld) [#/Vol] 0.6 10*3/uL 0.0 - 0.9 10*3/uL [facility] Monocytes/100 WBC (Bld) 6.4 % 5.0 - 13.0 % [facility] Neutrophils (Bld) [#/Vol] 7.8 10*3/uL High 1.8 - 7.5 10*3/uL [facility] Neutrophils/100 WBC (Bld) 85.9 % High 38.0 - 82.0 % [facility] Nucleated RBC/100 WBC (Bld) [Ratio] 0 % [facility] Platelet mean volume (Bld) [Entitic vol] 10.8 fL 9.0 - 12.7 fL [facility] Platelets (Bld) [#/Vol] 205 10*3/uL 140 - 440 10*3/uL [facility] RBC (Bld) [#/Vol] 3.16 10*6/uL Low 4.40 - 5.9 0 10*6/uL [facility] WBC (Bld) [#/Vol] 9.1 10*3/uL 3.6 - 10.7 10*3/uL [facility] CBC WITH AUTO DIFFERENTIALon 06-01-2024 Basophils (Bld) [#/Vol] 0.0 10*3/uL Normal 0.0-0.2 [facility] Comment on above: Performed By: #### L [id number] ####Wall Steamer: CLARE HUGGINS ([phone])[facility] (SBAB)[address] [place] [address] Basophils/100 WBC (Bld) 0.1 % Normal 0.0-2.0 [facility] Comment on above: Performed By: #### L [id number] ####Wall Steamer: CLARE HUGGINS ([phone])[facility] (SBHLAB)[address] [place] [address] [place] Eosinophils (Bld) [#/Vol] 0.0 10*3/uL Normal 0.0-0.5 [facility] Comment on above: Performed By: #### L [id number] ####Wall Steamer: CLARE HUGGINS ([phone])[facility] (SBHLAB)[address] [place] [address] [place] Eosinophils/100 WBC (Bld) 0.0 % Normal 0.0-6.0 [facility] Comment on above: Performed By: #### L [id number] ####Wall Steamer: CLARE HUGGINS ([phone])[facility] ([facility])[address] Erythrocyte distribution width (RBC) [Ratio] 15.4 % High 11.5-15.0 [facility] Comment on above: Performed By: #### L [id number] ####Wall Steamer: CLARE MERCERKRISTYN ([phone])[facility] ([facility])[address] Hematocrit (Bld) [Volume fraction] 30.7 % Low 40.0-52.0 [facility] Comment on above: Performed By: #### L [id number] ####Wall Steamer: CLARE MERCERKRISTYN ([phone])[facility] ([facility])[address] Hemoglobin (Bld) [Mass/Vol] 9.2 g/dL Low 13.0-18.0 [facility] Comment on above: Performed By: #### L [id number] ####Wall Steamer: CLARE MERCERKRISTYN ([phone])[facility] ([facility])[address] IMMATURE GRANS % 0.7 % Normal 0.0-2.0 [facility] Comment on above: Performed By: #### L [id number] ####Wall Steamer: CLARE HUGGINS ([phone])[facility] ([facility])[address] IMMATURE GRANS ABSOLUTE 0.1 10*3/uL High <0.1 [facility] Comment on above: Performed By: #### L [id number] ####Wall Steamer: CLARE HUGGINS ([phone])[facility] ([facility])[address] Lymphocytes (Bld) [#/Vol] 0.6 10*3/uL Low 1.0-4.3 [facility] Comment on above: Performed By: #### L [id number] ####Wall Steamer: CLARE HUGGINS ([phone])[facility] HOSPITALPrieto [place] (SBHLAB)[address] Lymphocytes/100 WBC (Bld) 6.9 % Low 15.0-45.0 [facility] Comment on above: Performed By: #### L [id number] ####Wall Steamer: CLARE HUGGINS ([phone])[facility]ITALPrieto [facility] (SBHLAB)[address] MCH (RBC) [Entitic mass] 29.1 pg Normal 26.0-34.0 [facility] Comment on above: Performed By: #### L [id number] ####Wall Steamer: CLARE MERCERKRISTYN ([phone])[facility]ITALPrieto [facility]ITAL[facility] (SBHLAB)[address] [place] [address] MCHC 30.0 % Low 30.5-36.0 [facility] Comment on above: Performed By: #### L [id number] ####Wall Steamer: CLARE HUGGINS ([phone])[facility]ITALPrieto [facility]ITAL[facility] (SBHLAB)[address] [place] [address] MCV (RBC) [Entitic vol] 97.2 fL Normal 77.0-99.0 [facility] Comment on above: Performed By: #### L [id number] ####Wall Steamer: CLARE HUGGINS ([phone])[facility]ITALPrieto [facility] (SBHLAB)[address] [place] [address] Monocytes (Bld) [#/Vol] 0.6 10*3/uL Normal 0.0-0.9 [facility] Comment on above: Performed By: #### L [id number] ####Wall Steamer: CLARE MERCERKRISTYN ([phone])[facility]ITAL[facility]eto [facility] (SBHLAB)[address] Monocytes/100 WBC (Bld) 6.4 % Normal 5.0-13.0 [facility] Comment on above: Performed By: #### L [id number] ####Wall Steamer: CLARE HUGGINS ([phone])[facility] [place] (SBHLAB)[address] NEUTROPHILS ABSOLUTE 7.8 10*3/uL High 1.8-7.5 [facility] Comment on above: Performed By: #### L [id number] ####Wall Steamer: CLARE HUGGINS ([phone])[facility] [place] (SBHLAB)[address] Neutrophils/100 WBC (Bld) 85.9 % High 38.0-82.0 [facility] Comment on above: Performed By: #### L [id number] ####Wall Steamer: CLARE HUGGINS ([phone])[facility] (SBHLAB)[address] NRBC 0.0 /100 WBCs Normal 0.0-2.0 [facility] Comment on above: Performed By: #### L [id number] ####Wall Steamer: CLARE HUGGINS ([phone])[facility] [place] (SBHLAB)[address] Platelet mean volume (Bld) [Entitic vol] 10.8 fL Normal 9.0-12.7 [facility] Comment on above: Performed By: #### L [id number] ####Wall Steamer: CLARE HUGGINS ([phone])[facility] [place] (SBHLAB)[address] Platelets (Bld) [#/Vol] 205 10*3/uL Normal 140-440 [facility] Comment on above: Performed By: #### L [id number] ####Wall Steamer: CLARE HUGGINS ([phone])[facility] [place] (SBHLAB)[address] RBC (Bld) [#/Vol] 3.16 10*6/uL Low 4.40-5.90 [facility] Comment on above: Performed By: #### L [id number] ####Wall Steamer: CLARE HUGGINS ([phone])[facility] ([facility])[address] [place] [address] WBC (Bld) [#/Vol] 9.1 10*3/uL Normal 3.6-10.7 [facility] Comment on above: Performed By: #### L [id number] ####Wall Steamer: CLARE HUGGINS ([phone])[facility] ([facility])[address] [place] [address] Calcium.ionized [Moles/Vol]o n 06-01-2024 Calcium.ionized (Bld) [Moles/Vol] 4.6 mg/dL 4.30 - 5.20 mg/dL [facility] Interpretation and review of laboratory results Normal [facility] PH, IONIZED CALCIUM 7.31 7.31 - 7.46 [facility] - Chemistry and C hemistry - challengeon 06-01-2024 Glucose [Mass/Vol] 271 mg/dL High 70 - 100 mg/dL [facility] Glucose [Mass/Vol] 281 mg/dL High 70 - 100 mg/dL [facility] Glucose [Mass/Vol] 257 mg/dL High 70 - 100 mg/dL [facility] Glucose [Mass/Vol] 251 mg/dL High 70 - 100 mg/dL [facility] Magnesium [Mass/Vol] 2.6 mg/dL 1.6 - 2 .6 mg/dL [facility] MAGNESIUMon 06-01-2024 Magnesium [Mass/Vol] 2.6 mg/dL Normal 1.6-2.6 [facility] Comment on above: Result Comment: REX Hernandez COMMENTS: Higher values can be expected in females during menses. Performed By: #### L AB103, SZF911, LAB15 ####Wall Steamer: CLARE HUGGINS ([phone])[facility] ([facility])[address] [place] [address] Magnesium [Mass/Vol]on 06-01 Higher values can be expected in females during menses. [facility] No Panel Informationon 06-01 Interpretation and review of laboratory results Abnormal [facility] Performed by: [facility], [address] [facility] [address] CLIA ID: [id number] [facility] Interpretation and review of laboratory results Abnormal [facility] Performed by: Santiagoprieto [facility], [address] [facility] [address] CLIA ID: [id number] [facility] Interpretation and review of laboratory results Abnormal [facility] Performed by: Santiagoprieto [facility], [address] [facility] [address] CLIA ID: [id number] [facility] Interpretation and review of laboratory results Abnormal [facility] Performed by: Nicole [facility], [address] [facility] [address] CLIA ID: [id number] [facility] Interpretation and review of laboratory results Normal [facility] PHOSPHORUSon 06-01-2024 Phosphate [Mass/Vol] 4.1 mg/dL Normal 2.3-4.7 [facility] Comment on above: Performed By: #### L AB103, [id number], LAB15 ####Wall Steamer: CLARE HUGGINS ([phone])[facility]ITAL[facility] (SBHLAB)[address] Phosphate [Moles/Vol]on 05-18 Phosphate [Mass/Vol] 4.1 mg/dL 2.3 - 4 .7 mg/dL [facility] 30on 05-31-2024 30 Problem: Knowledge Deficit Goal: Patient/family/caregive r demonstrates understanding of disease process, treatment plan, [...] Goal: Urinary catheter remains patent Outcome: Progressing Normal [facility] [id number] 05-31-2024 [id number] Inpatient status [facility] with acute hypercapnic resp failure. Admitted to ICU for NIV. Currently requiring high flow oxygen 60% fio2 and 40 liters. Receiving iv antibiotics, iv steroids, scheduled aerosols, and ss insulin coverage. 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 Anticipated discharge plan is to return to [facility] when medically stable. Normal [facility] BASIC METABOLIC PANELon 05-18 Anion gap [Moles/Vol] 8 mmol/L Normal -13 [facility] Comment on above: Performed By: #### L AB20, XUR168, LAB15, [id number], DSO311 ####Wall Steamer: CLARE HUGGINS ([phone])[facility] (SBHLAB)[address] Calcium [Mass/Vol] 8.1 mg/dL Low 8.8-10.0 [facility] Comment on above: Performed By: #### L AB20, [id number], LAB15, [id number], VIZ147 ####Wall Steamer: CLARE HUGGINS ([phone])[facility] (SBHLAB)[address] [place] [address] [place] Chloride [Moles/Vol] 111 mmol/L High 98-107 [facility] Comment on above: Performed By: #### L AB20, GCC188, LAB15, [id number], DOH524 ####Wall Steamer: CLARE HUGGINS ([phone])[facility] (SBHLAB)[address] CO2 [Moles/Vol] 20 mmol/L Low 23-31 [facility] Comment on above: Performed By: #### L AB20, ZFP502, LAB15, [id number], WDO047 ####Wall Steamer: CLARE HUGGINS ([phone])[facility] (SBHLAB)[address] Creatinine [Mass/Vol] 1.58 mg/dL High 0.72-1.25 [facility] Comment on above: Performed By: #### L AB20, JTA353, LAB15, [id number], MFR100 ####Wall Steamer: CLARE HUGGINS ([phone])[facility] ([facility])[address] GLOMERULAR FILTRATION RATE ML/MIN/1.73 SQ M.PREDICTED 47.6 mL/min/1.73m*2 Low >60.0 [facility] Comment on above: Result Comment: Calc ulation based on the Chronic Kidney Disease Epidemiology Collaboration (CKD-EPI) equation refit without adjustment for race Performed By: #### L AB20, HKN495, LAB15, [id number], OHL061 ####Wall Steamer: CLARE HUGGINS ([id number])[facility] ([facility])[address] [place] [address] Glucose [Mass/Vol] 194 mg/dL High 82-115 [facility] Comment on above: Performed By: #### L AB20, OUM035, LAB15, [id number], MEP916 ####Wall Steamer: CLARE HUGGINS ([id number])[facility] (HLAB)[address] Potassium [Moles/Vol] 4.8 mmol/L Normal 3.5-5.1 [facility] Comment on above: Result Comment: [facility] potassium values may be up to 0.5 mmol/L lower than serum values. Performed By: #### L AB20, HOU067, LAB15, [id number], BQM221 ####Wall Steamer: CLARE HUGGINS ([phone])[facility] (SBHLAB)[address] [place] [address] [place] Sodium [Moles/Vol] 139 mmol/L Normal 136-145 [facility] Comment on above: Performed By: #### L AB20, EUM180, LAB15, [id number], GED671 ####Wall Steamer: CLARE HUGGINS ([phone])[facility] (SBHLAB)[address] [place] [address] [place] Urea nitrogen [Mass/Vol] 58 mg/dL High 9-23 [facility] Comment on above: Performed By: #### L AB20, CZK523, LAB15, [id number], AGU551 ####Wall Steamer: CLARE HUGGINS ([id number])[facility] (SBAB)[address] Basic metabolic 1998 panelon 05-31-2024 Anion gap [Moles/Vol] 8 mmol/L 3 - 13 mmol/L [facility] Calcium [Mass/Vol] 8.1 mg/dL Low 8.8 - 10. 0 mg/dL [facility] Chloride [Moles/Vol] 111 mmol/L High 98 - 10 7 mmol/L [facility] CO2 [Moles/Vol] 20 mmol/L Low 23 - 31 mmol/L [facility] Creatinine [Mass/Vol] 1.58 mg/dL High 0.72 - 1.25 mg/dL [facility] GFR/1.73 sq M.predicted (S/P/Bld) [Vol rate/Area] 47.6 mL/min Low - PINF [facility] Comment on above: Calculation based on the Chronic Kidney Disease Epidemiology Collaboration (CKD-EPI) equation refit without adjustment for race Glucose [Mass/Vol] 194 mg/dL High 82 - 115 mg/dL [facility] Potassium [Moles/Vol] 4.8 mmol/L 3.5 - 5.1 mmol/L [facility] Comment on above: Plasma potassium adriana ues may be up to 0.5 mmol/L lower than serum values. Sodium [Moles/Vol] 139 mmol/L 136 - 145 mmol/L [facility] Urea nitrogen [Mass/Vol] 58 mg/dL High 9 - 23 mg/dL [facility] CALCIUM, IONIZEDon CALCIUM IONIZED 4.10 mg/dL Low 4.30-5.20 [facility] Comment on above: Performed By: #### L AB54 ####Wall Steamer: CLARE HUGGINS ([phone])[facility] (SBHLAB)[address] PH, IONIZED CALCIUM 7.37 Normal 7.31-7.46 [facility] Comment on above: Performed By: #### L AB54 ####Wall Steamer: CLARE HUGGINS ([phone])[facility] (SBHLAB)[address] CBC W Auto Differential pane l (Bld)Ordered By: Verónica Kitchen on 05-31-2024 Erythrocyte distribution width (RBC) [Ratio] 15.3 % High 11.5 - 15.0 % [facility] [employer] Hematocrit (Bld) [Volume fraction] 33.8 % Low 40.0 - 52.0 % [facility] [employer] Hemoglobin (Bld) [Mass/Vol] 9.8 g/dL Low 13.0 - 18.0 g/dL [facility] [employer] MCH (RBC) [Entitic mass] 28.7 pg 26. 0 - 34.0 pg [facility] [employer] MCHC (RBC) [Mass/Vol] 29 % Low 30.5 - 36.0 % [facility] [employer] MCV (RBC) [Entitic vol] 99.1 fL High 77.0 - 99.0 fL [facility] [employer] Platelet mean volume (Bld) [Entitic vol] 10.8 fL 9.0 - 12.7 fL [facility] [employer] Platelets (Bld) [#/Vol] 194 10*3/uL 140 - 440 10*3/uL [facility] [employer] RBC (Bld) [#/Vol] 3.41 10*6/uL Low 4.40 - 5.9 0 10*6/uL [facility] [employer] WBC (Bld) [#/Vol] 11.4 10*3/uL High 3.6 - 10.7 10*3/uL [facility] [employer] CBC WITH AUTO DIFFERENTIALon 05-31-2024 Erythrocyte distribution width (RBC) [Ratio] 15.3 % High 11.5-15.0 [facility] Comment on above: Performed By: #### L [id number], [id number] ####Wall Steamer: CLARE HUGGINS ([phone])[facility] (SBHLAB)[address] Hematocrit (Bld) [Volume fraction] 33.8 % Low 40.0-52.0 [facility] Comment on above: Performed By: #### L [id number], [id number] ####Wall Steamer: CLARE MERCERKRISTYN ([phone])[facility] (SBHLAB)[address] Hemoglobin (Bld) [Mass/Vol] 9.8 g/dL Low 13.0-18.0 [facility] Comment on above: Performed By: #### L [id number], [id number] ####Wall Steamer: CLARE HUGGINS ([phone])[facility]ITALPrieto [facility] (SBHLAB)[address] MCH (RBC) [Entitic mass] 28.7 pg Normal 26.0-34.0 [facility] Comment on above: Performed By: #### L [id number], [id number] ####Wall Steamer: CLARE MERCERKRISTYN ([phone])[facility]ITALPrieto [facility] (SBHLAB)[address] MCHC 29.0 % Low 30.5-36.0 [facility] Comment on above: Performed By: #### L [id number], [id number] ####Wall Steamer: CLARE MERCERKRISTYN ([phone])[facility]ITALPrieto [facility] (SBHLAB)[address] MCV (RBC) [Entitic vol] 99.1 fL High 77.0-99.0 [facility] Comment on above: Performed By: #### L [id number], [id number] ####Wall Steamer: CLARE HUGGINS ([phone])[facility]ITALPrieto [facility] (SBHLAB)[address] Platelet mean volume (Bld) [Entitic vol] 10.8 fL Normal 9.0-12.7 [facility] Comment on above: Performed By: #### L [id number], [id number] ####Wall Steamer: CLARE MERCERKRISTYN ([phone])[facility]ITALPrieto [facility] (SBHLAB)[address] Platelets (Bld) [#/Vol] 194 10*3/uL Normal 140-440 [facility] Comment on above: Performed By: #### L [id number], [id number] ####Wall Steamer: CLARE HUGGINS ([phone])[facility]ITALPrieto [facility] (SBHLAB)[address] [place] [address] RBC (Bld) [#/Vol] 3.41 10*6/uL Low 4.40-5.90 [facility] Comment on above: Performed By: #### L [id number], [id number] ####Wall Steamer: CLARE HUGGINS ([id number])[facility] (SBHLAB)[address] [place] [address] WBC (Bld) [#/Vol] 11.4 10*3/uL High 3.6-10.7 [facility] Comment on above: Performed By: #### L [id number], [id number] ####Wall Steamer: CLARE HUGGINS ([phone])[facility] (SBHLAB)[address] [place] [address] Calcium.ionized [Moles/Vol]O rdered By: John Dean on 05-31-2024 Calcium.ionized (Bld) [Moles/Vol] 4.1 mg/dL Low 4.30 - 5.20 mg/dL [facility] Interpretation and review of laboratory results Abnormal [facility] PH, IONIZED CALCIUM 7.37 7.31 - 7.46 [facility] HEPATIC FUNCTION PANELon Albumin [Mass/Vol] 2.8 g/dL Low 3.4-4.8 [facility] Comment on above: Performed By: #### L AB20, PYC141, LAB15, [id number], [id number] ####Wall Steamer: CLARE HUGGINS ([phone])[facility] (SBHLAB)[address] [place] [address] ALP [Catalytic activity/Vol] 69 U/L Normal 40-150 [facility] Comment on above: Performed By: #### L AB20, DKM796, LAB15, [id number], [id number] ####Wall Steamer: CLARE HUGGINS ([phone])[facility] (SBHLAB)[address] ALT [Catalytic activity/Vol] 16 U/L Normal <40 [facility] Comment on above: Performed By: #### L AB20, AKX036, LAB15, [id number], JUO023 ####Wall Steamer: CLARE HUGGINS ([phone])[facility] (SBHLAB)[address] AST [Catalytic activity/Vol] 22 U/L Normal <34 [facility] Comment on above: Performed By: #### L AB20, IZF845, LAB15, [id number], ULZ732 ####Wall Steamer: CLARE JOSELUIS ([phone])[facility] ([facility])[address] Bilirubin [Mass/Vol] 0.2 mg/dL Normal <1.2 [facility] Comment on above: Performed By: #### L AB20, [id number], LAB15, [id number], [id number] ####Wall Steamer: CLARE HUGGINS ([id number])[facility] ([facility])[address] Bilirubin.indirect [Mass/Vol] 0.1 mg/dL Normal <0.5 [facility] Comment on above: Performed By: #### L AB20, [id number], LAB15, [id number], [id number] ####Wall Steamer: CLARECLAUDIO HUGGINS ([id number])[facility] ([facility])[address] Protein [Mass/Vol] 5.4 g/dL Low 6.4-8.3 [facility] Comment on above: Result Comment: Seru m protein values are higher than plasma values. Samples from recumbent persons are lower by up to 0.5 g/dL as compared to ambulatory persons. After 60 years values are lower by up to 0.2 g/dL. Performed By: #### L AB20, [id number], LAB15, [id number], [id number] ####Wall Steamer: CLARE HUGGINS ([phone])[facility] ([facility])[address] [place] [address] Hepatic function 2000 panelo n 05-31-2024 Albumin [Mass/Vol] 2.8 g/dL Low 3.4 - 4.8 g/dL [facility] [employer] ALP [Catalytic activity/Vol] 69 U/L 40 - 150 U/L [facility] [employer] ALT [Catalytic activity/Vol] 16 U/L NINF - 40 U/L [facility] [employer] AST [Catalytic activity/Vol] 22 U/L NINF - 34 U/L [facility] [employer] Bilirubin [Mass/Vol] 0.2 mg/dL NINF - 1.2 mg/dL [facility] [employer] Bilirubin.conjugated [Mass/Vol] 0.1 mg/dL NINF - 0.5 mg/dL [facility] [facility] [employer] Protein [Mass/Vol] 5.4 g/dL Low 6.4 - 8.3 g/dL [facility] [employer] Comment on above: Serum protein values are higher than plasma values. Samples from recumbent persons are lower by up to 0.5 g/dL as compared to ambulatory persons. After 60 years values are lower by up to 0.2 g/dL. Laboratory - Chemistry and C hemistry - challengeon 05-31-2024 Glucose [Mass/Vol] 274 mg/dL High 70 - 100 mg/dL [facility] [employer] Glucose [Mass/Vol] 271 mg/dL High 70 - 100 mg/dL [facility] [employer] Procalcitonin [Mass/Vol] 2.1 ng/mL High FABIAN F - 0.07 ng/mL [facility] [employer] Glucose [Mass/Vol] 235 mg/dL High 70 - 100 mg/dL [facility] [employer] Glucose [Mass/Vol] 167 mg/dL High 70 - 100 mg/dL [facility] [employer] Glucose [Mass/Vol] 233 mg/dL High 70 - 100 mg/dL [facility] [employer] Magnesium [Mass/Vol] 2.6 mg/dL 1.6 - 2 .6 mg/dL [facility] [employer] Laboratory - Hematology and Cell countson 05-31-2024 Band form neutrophils (Bld) [#/Vol] 0.3 10*3/uL High NINF - 0.0 10*3/uL [facility] [employer] Band form neutrophils/100 WBC (Bld) 3 % High NINF - 0 % [facility] Justin cells LM Ql (Bld) Slight Abnormal (none) [facility] Lymphocytes (Bld) [#/Vol] 0.6 10*3/uL Low 1.0 - 4.3 10*3/uL [facility] Lymphocytes/100 WBC (Bld) 5 % Low 15 - 45 % [facility] Monocytes (Bld) [#/Vol] 0.5 10*3/uL 0.0 - 0.9 10*3/uL [facility] Monocytes/100 WBC (Bld) 4 % Low 5 - 13 % [facility] Neutrophils (Bld) [#/Vol] 10.4 10*3/uL High 1.8 - 7.5 10*3/uL [facility] Ovalocytes LM Ql (Bld) Moderate Abnormal (none) [facility] Poikilocytosis LM Ql (Bld) Moderate Abnormal (none) [facility] RBC morphology finding Nom (Bld) abnormal [facility] Segmented neutrophils/100 WBC (Bld) 88 % High 38 - 82 % [facility] MAGNESIUMon 05-31-2024 Magnesium [Mass/Vol] 2.6 mg/dL Normal 1.6-2.6 [facility] Comment on above: Result Comment: REX Hernandez COMMENTS: Higher values can be expected in females during menses. Performed By: #### L AB20, [id number], LAB15, [id number], [id number] ####Wall Steamer: CLARE HUGGINS ([phone])[facility] ([facility])[address] [place] [address] MANUAL DIFFERENTIAL (CELLAVI JARROD)on 05-31-2024 BAND NEUTROPHILS TOTAL PER COUNTED LEUKOCYTES BY MANUAL COUNT 3 Normal [facility] Comment on above: Performed By: #### L [id number], [id number] ####Wall Steamer: CLARE HUGGINS ([phone])[facility] ([facility])[address] BANDS (10*3/UL) IN BLOOD-CELLAVISION 0.3 10*3/uL High <=0.0 [facility] Comment on above: Performed By: #### L [id number], [id number] ####Wall Steamer: CLARE HUGGINS ([phone])[facility] ([facility])[address] BASOPHILS TOTAL PER COUNTED LEUKOCYTES BY MANUAL COUNT Normal [facility] Comment on above: Performed By: #### L [id number], [id number] ####Wall Steamer: CLARE HUGGINS ([phone])[facility] ([facility])[address] BLASTS TOTAL PER COUNTED LEUKOCYTES BY MANUAL COUNT [facility] Comment on above: Performed By: #### L [id number], [id number] ####Wall Steamer: CLARE HUGGINS ([phone])[facility] [place] ([facility])[address] JUSTIN CELLS PRESENCE IN BLOOD BY LIGHT MICROSCOPY Slight Abnormal (none) [facility] Comment on above: Performed By: #### L [id number], [id number] ####Wall Steamer: CLARE HUGGINS ([id number])[facility] ([facility])[address] EOSINOPHILS TOTAL PER COUNTED LEUKOCYTES BY MANUAL COUNT [facility] Comment on above: Performed By: #### L [id number], [id number] ####Wall Steamer: CLARE HUGGINS ([id number])[facility] [place] ([facility])[address] LYMPHOCYTES (10*3/UL) IN BLOOD-CELLAVISION 0.6 10*3/uL Low 1.0-4.3 [facility] Comment on above: Performed By: #### L [id number], [id number] ####Wall Steamer: CLARE HUGGINS ([id number])[facility] ([facility])[address] LYMPHOCYTES TOTAL PER COUNTED LEUKOCYTES BY MANUAL COUNT [address] [place] [address] Comment on above: Performed By: #### L [id number], [id number] ####Wall Steamer: CLARE HUGGINS ([phone])[facility] ([facility])[address] [place] [address] [place] LYMPHOCYTES/100 LEUKOCYTES IN BLOOD-CELLAVISION 5 % Low 15-45 [facility] Comment on above: Performed By: #### L [id number], [id number] ####Wall Steamer: CLARE HUGGINS ([phone])[facility] ([facility])[address] [place] [address] [place] METAMYELOCYTES TOTAL PER COUNTED LEUKOCYTES BY MANUAL COUNT [facility] Comment on above: Performed By: #### L [id number], [id number] ####Wall Steamer: CLARE BELLOCER ([phone])[facility] [place] ([facility])[address] [place] [address] [place] MONOCYTES (10*3/UL) IN BLOOD-CELLAVISION 0.5 10*3/uL Normal 0.0-0.9 [facility] Comment on above: Performed By: #### L [id number], [id number] ####Wall Steamer: CLARE HUGGINS ([id number])[facility] ([facility])[address] [place] [address] [place] MONOCYTES TOTAL PER COUNTED LEUKOCYTES BY MANUAL COUNT 4 Normal [facility] Comment on above: Performed By: #### L [id number], [id number] ####Wall Steamer: CLARE HUGGINS ([id number])[facility] ([facility])[address] [place] [address] [place] MONOCYTES/100 LEUKOCYTES IN BLOOD-ROGER 4 % Low 5-13 [facility] Comment on above: Performed By: #### L [id number], [id number] ####Wall Steamer: CLARE BELLOCER ([id number])[facility] ([facility])[address] [place] [address] [place] MYELOCYTES COUNTED BY MANUAL COUNT [facility] Comment on above: Performed By: #### L [id number], [id number] ####Wall Steamer: CLARE BELLOCER ([id number])[facility] ([facility])[address] [place] [address] [place] NEUTROPHILS BAND FORM/100 LEUKOCYTES IN BLOOD-CELLAVISI 3 % High <=0 [facility] Comment on above: Performed By: #### L [id number], [id number] ####Wall Steamer: CLARE HUGGINS ([id number])[facility] ([facility])[address] [place] [address] [place] NEUTROPHILS TOTAL PER COUNTED LEUKOCYTES BY MANUAL COUNT 88 Normal [facility] Comment on above: Performed By: #### L [id number], [id number] ####Wall Steamer: CLARE HUGGINS ([id number])[facility] [place] ([facility])[address] [place] [address] [place] OVALOCYTES PRESENCE IN BLOOD BY LIGHT MICROSCOPY Moderate Abnormal (none) [facility] Comment on above: Performed By: #### L [id number], [id number] ####Wall Steamer: CLARE HUGGINS ([id number])[facility] [place] ([facility])[address] [place] [address] [place] POIKILOCYTOSIS (PRESENCE) IN BLOOD BY LIGHT MICROSCOPY Moderate Abnormal (none) [facility] Comment on above: Performed By: #### L [id number], [id number] ####Wall Steamer: CLARE HUGGINS ([phone])[facility] [place] ([facility])[address] [place] [address] [place] PROMYELOCYTES TOTAL PER COUNTED LEUKOCYTES BY MANUAL COUNT Normal [facility] Comment on above: Performed By: #### L [id number], [id number] ####Wall Steamer: CLARE HUGGINS ([id number])[facility] [place] ([facility])[address] [place] [address] [place] RBC MORPHOLOGY IN BLOOD abnormal Normal [facility] Comment on above: Performed By: #### L [id number], [id number] ####Wall Steamer: CLARE HUGGINS ([id number])[facility] [place] ([facility])[address] [place] [address] [place] SEGMENTED NEUTROPHILS (10*3/UL) IN BLOOD-CELLAVISION 10.4 10*3/uL High 1.8-7.5 [facility] Comment on above: Performed By: #### L [id number], [id number] ####Wall Steamer: CLARE HUGGINS ([id number])[facility] [place] ([facility])[address] [place] [address] SEGMENTED NEUTROPHILS/100 LEUKOCYTES-CE 88 % High 38-82 [facility] Comment on above: Performed By: #### L [id number], [id number] ####Wall Steamer: CLARE HUGGINS ([id number])[facility] [place] ([facility])[address] [place] [address] UNCLASSIFIED CELLS TOTAL PER COUNTED LEUKOCYTES BY MANUAL COUNT Normal [facility] Comment on above: Performed By: #### L [id number], [id number] ####Wall Steamer: CLARE HUGGINS ([id number])[facility] [place] ([facility])[address] [place] [address] VARIANT LYMPHOCYTES TOTAL PER COUNTED LEUKOCYTES BY MANUAL COUNT Normal [facility] Comment on above: Performed By: #### L [id number], [id number] ####Wall Steamer: CLARE HUGGINS ([id number])[facility] ([facility])[address] [place] [address] [place] Magnesium [Mass/Vol]on 05-31 Interpretation and review of laboratory results Normal [facility] Higher values can be expected in females during menses. [facility] [employer] No Panel Informationon 05-31 Interpretation and review of laboratory results Abnormal [facility] Performed by: [facility], [address] [place] [address] CLIA ID: [id number] [facility] [employer] [facility] [employer] Interpretation and review of laboratory results Abnormal [facility] Performed by: [facility], [address] [place] [address] CLIA ID: [id number] [facility] [employer] [facility] Interpretation and review of laboratory results Abnormal [facility] Performed by: [facility], [address] [place] [address] CLIA ID: [id number] [facility] Interpretation and review of laboratory results Abnormal [facility] Performed by: [facility], [address] [facility] [address] CLIA ID: [id number] [facility] Interpretation and review of laboratory results Abnormal [facility] Performed by: [facility], [address] [facility] [address] CLIA ID: [id number] [facility] Atypical Lymphocytes Manual [facility] Bands Manual 3 [facility] Basophils Manual [facility] Blasts Manual [facility] Eosinophils Manual [facility] Interpretation and review of laboratory results Abnormal [facility] Lymphocytes Manual 5 [facility] Metamyelocytes Manual [facility] Monocytes Manual 4 [facility] Myelocytes Manual [facility] ealth Neutrophils Manual 88 [facility] Promyelocytes Manual [facility] Unclassified Cells, Manual [facility] Interpretation and review of laboratory results Abnormal [facility] PHOSPHORUSon 05-31-2024 Phosphate [Mass/Vol] 5.2 mg/dL High 2.3-4.7 [facility] Comment on above: Performed By: #### L AB20, [id number], LAB15, [id number], [id number] ####Wall Steamer: CLARE HUGGINS ([id number])[facility] ([facility])[address] [place] [address] PROCALCITONIN TESTon 025 PROCALCITONIN 2.10 ng/mL High <0.07 [facility] Comment on above: Result Comment: REX Hernandez COMMENTS: PCT <0.50 = Low risk of severe sepsis and/or septic shock. PCT >2.00 = High risk of severe sepsis and/or septic shock. Performed By: #### L AB20, [id number], LAB15, [id number], [id number] ####Wall Steamer: CLARE HUGGINS ([phone])[facility] ([facility])[address] [place] [address] [place] Phosphate [Moles/Vol]on 05-18 Phosphate [Mass/Vol] 5.2 mg/dL High 2.3 - 4 .7 mg/dL [facility] Procalcitonin [Mass/Vol]on 0 05-31-2024 Interpretation and review of laboratory results Abnormal [facility] PCT <0.50 = Low risk of severe sepsis and/or septic shock. PCT >2.00 = High risk of severe sepsis and/or septic shock. 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 Pt came from [facility] [place] s/p open heart procedure. Pt remains NPO [...] (kg): 135 kg Total Energy Requirements (kcals/day): 2938-1103 kcals (11-14 kcals/kg) Weight Used for Protein Requirements: [place] Weight in Kg Used for Protein Requirements: [...] (276#-05/12/23, 284#-03/08/24) % Weight Change (Calculated): 7.2 [place] Body Weight (lbs) (Calculated): 178 lbs [place] Body Weight (Kg) (Calculated): 81 kg % [place] Body Weight (Calculated): 166.3 % BMI (kg/m2) [...] of estimated needs Nutrition Monitoring and Evaluation: Behavioral-Environmenta l Outcomes: None Identified Food/Nutrient Intake Outcomes: Diet Advancement/Tolerance Physical Signs/Symptoms Outcomes: Biochemical Data, GI Status, Nausea or Vomiting, Fluid Status or Edema, Nutrition Focused Physical Findings, Skin, Weight Discharge Planning: Too soon to determine Alejandra Olivas RD Contact: *[phone] or via Secure Chat [facility] XR Chest Single viewon 05-31 1. [...] Electronically Signed Date/Time: 05/31/2024 5:51 AM EST [facility] RADIOLOGY SYSTEM Patient Name: JAMES REYES : [...] was obtained and reviewed. Special views: None. [facility] William Huston MD - 05/31/2024 Patient [...] 05/31/2024 5:51 AM EST [facility] Radiology Study observation (narrative) [facility] XR Chest Single viewOrdered By: William Huston on 05-31-2024 [facility] Work Phone: BASIC METABOLIC PANELon 05-18 Anion gap [Moles/Vol] 10 mmol/L Normal 3-13 [facility] Comment on above: Performed By: #### L [id number], LAB15, [id number] ####Wall Steamer: CLARE HUGGINS ([phone])[facility] ([facility])[address] [place] [address] Calcium [Mass/Vol] 7.8 mg/dL Low 8.8-10.0 [facility] Comment on above: Performed By: #### L AB106, LAB15, [id number] ####Wall Steamer: CLARE HUGGINS ([phone])[facility] ([facility])[address] Chloride [Moles/Vol] 109 mmol/L High 98-107 [facility] Comment on above: Performed By: #### L AB106, LAB15, [id number] ####Wall Steamer: CLARE HUGGINS ([id number])[facility] ([facility] [place] [address] [place] CO2 [Moles/Vol] 20 mmol/L Low 23-31 [facility] Comment on above: Performed By: #### L AB106, LAB15, [id number] ####Wall Steamer: CLARE HUGGINS ([phone])[facility] ([facility])[address] Creatinine [Mass/Vol] 1.28 mg/dL High 0.72-1.25 [facility] Comment on above: Performed By: #### L AB106, LAB15, [id number] ####Wall Steamer: CLARE HUGGINS ([id number])[facility] ([facility])[address] GLOMERULAR FILTRATION RATE ML/MIN/1.73 SQ M.PREDICTED 61.3 mL/min/1.73m*2 Normal >60.0 [facility] Comment on above: Result Comment: Calc ulation based on the Chronic Kidney Disease Epidemiology Collaboration (CKD-EPI) equation refit without adjustment for race Performed By: #### L AB106, LAB15, [id number] ####Wall Steamer: CLARE HUGGINS ([id number])[facility] ([facility])[address] [place] [address] Glucose [Mass/Vol] 284 mg/dL High 82-115 [facility] Comment on above: Performed By: #### Joyce AB106, LAB15, [id number] ####Wall Steamer: CLARE HUGGINS ([id number])[facility] ([facility])[address] [place] [address] [place] Potassium [Moles/Vol] 4.8 mmol/L Normal 3.5-5.1 [facility] Comment on above: Result Comment: [facility] potassium values may be up to 0.5 mmol/L lower than serum values. Performed By: #### L AB106, LAB15, [id number] ####Wall Steamer: CLARE HUGGINS ([phone])[facility] ([facility] [place] [address] [place] Sodium [Moles/Vol] 139 mmol/L Normal 136-145 [facility] Comment on above: Performed By: #### L AB106, LAB15, [id number] ####Wall Steamer: CLARE HUGGINS ([phone])[facility] ([facility])[address] [place] [address] [place] Urea nitrogen [Mass/Vol] 44 mg/dL High 9-23 [facility] Comment on above: Performed By: #### L AB106, LAB15, [id number] ####Wall Steamer: CLARE HUGGINS ([id number])[facility] ([facility])[address] [place] [address] BLOOD CULTUREon 05-30-2024 Bacteria identified Cx Nom (Bld) BLOOD CULTURE Reference No growth at 5 days ORDER COMMENTS: Blood Collection Site: Right Hand [ S = SUSCEPTIBLE R = RESISTANT I = INTERMEDIATE S-DD = Susceptible-dose dependent NS = Non-susceptible NO = No Interpretation ] Normal [facility] Comment on above: Performed By: #### L [id number] #### Wall Steamer: CLARE HUGGINS ([phone]) [facility] ([facility]) [address] [place] [address] Bacteria identified Cx Nom (Bld) BLOOD CULTURE Reference No growth at 5 days ORDER COMMENTS: Blood Collection Site: Left Hand [ S = SUSCEPTIBLE R = RESISTANT I = INTERMEDIATE S-DD = Susceptible-dose dependent NS = Non-susceptible NO = No Interpretation ] Normal [facility] Comment on above: Performed By: #### L [id number] #### Wall Steamer: SWATI RATLIFF ([phone]) [facility] ([facility]) [address] [place] [address] BLOOD GAS ARTERIALon 025 Base excess Calc (Bld) [Moles/Vol] -4.0000 mmol/L Low -3.0-3.0 [facility] Comment on above: Performed By: #### L AB76 ####Wall Steamer: CLARE HUGGINS ([phone])[facility] ([facility])[address] [place] [address] [place] CO2 [Moles/Vol] 23.1 mmol/L Normal 22.0-28.0 [facility] Comment on above: Performed By: #### L AB76 ####Wall Steamer: CLARE HUGGINS ([phone])[facility] ([facility])[address] [place] [address] HCO3 (Bld) [Moles/Vol] 21.8 mmol/L Normal 21.0-27.0 [facility] Comment on above: Performed By: #### L AB76 ####Wall Steamer: CLARE HUGGINS ([phone])[facility] ([facility])[address] Hemoglobin (Bld) [Mass/Vol] 11.5 g/dL Low Screen only [facility] Comment on above: Performed By: #### L AB76 ####Wall Steamer: CLARE HUGGINS ([phone])[facility] ([facility])[address] OXYGEN SATURATION (%) IN ARTERIAL BLOOD 95.9 % Low 97.0-99.0 [facility] Comment on above: Performed By: #### L AB76 ####Wall Steamer: CLARE HUGGINS ([phone])[facility] ([facility])[address] PCO2 ARTERIAL 42.5 mm Hg Normal 35.0-48.0 [facility] Comment on above: Performed By: #### L AB76 ####Wall Steamer: CLARE HUGGINS ([phone])[facility] ([facility])[address] [place] [address] PH ARTERIAL 7.327 Low 7.350-7.450 [facility] Comment on above: Performed By: #### L AB76 ####Wall Steamer: CLARE HUGGINS ([phone])[facility] ([facility])[address] PO2 ARTERIAL 85.7 mm Hg Normal 83.0-108.0 [facility] Comment on above: Performed By: #### L AB76 ####Wall Steamer: CLARE HUGGINS ([id number])[facility] ([facility])[address] SOURCE OF OXYGEN Bi-PAP Normal [facility] Comment on above: Result Comment: 50% Performed By: #### L AB76 ####Wall Steamer: CLARE HUGGINS ([id number])[facility] [place] ([facility])[address] Base excess Calc (Bld) [Moles/Vol] -3.0000 mmol/L Normal -3.0-3.0 [facility] Comment on above: Performed By: #### L AB76 ####Wall Steamer: CLARE HUGGINS ([phone])[facility] [place] ([facility])[address] CO2 [Moles/Vol] 25.4 mmol/L Normal 22.0-28.0 [facility] Comment on above: Performed By: #### L AB76 ####Wall Steamer: CLARE HUGGINS ([phone])[facility] ([facility])[address] HCO3 (Bld) [Moles/Vol] 23.8 mmol/L Normal 21.0-27.0 [facility] Comment on above: Performed By: #### L AB76 ####Wall Steamer: CLARE HUGGINS ([id number])[facility] [place] ([facility])[address] Hemoglobin (Bld) [Mass/Vol] 11.3 g/dL Low Screen only [facility] Comment on above: Performed By: #### L AB76 ####Wall Steamer: CLARE HUGGINS ([phone])[facility] ([facility])[address] OXYGEN SATURATION (%) IN ARTERIAL BLOOD 89.5 % Low 97.0-99.0 [facility] Comment on above: Performed By: #### L AB76 ####Wall Steamer: CLARE HUGGINS ([id number])[facility] ([facility])[address] PCO2 ARTERIAL 50.7 mm Hg High 35.0-48.0 [facility] Comment on above: Performed By: #### L AB76 ####Wall Steamer: CLARE HUGGINS ([phone])[facility]ITAL[facility] [place] ([facility])[address] PH ARTERIAL 7.290 Low 7.350-7.450 [facility] Comment on above: Performed By: #### L AB76 ####Wall Steamer: CLARE WINTERDaniloKRISTYN ([phone])[facility]ITAL[facility]eto [facility] ([facility])[address] PO2 ARTERIAL 64.1 mm Hg Low 83.0-108.0 [facility] Comment on above: Performed By: #### L AB76 ####Wall Steamer: CLARE WINTERVERN ([id number])[facility] ([facility])[address] SOURCE OF OXYGEN Heated High Flow Normal [facility] Comment on above: Performed By: #### L AB76 ####Wall Steamer: CLARE HUGGINS ([id number])[facility] ([facility])[address] [place] [address] Basic metabolic 1998 panelon 05-30-2024 Anion gap [Moles/Vol] 10 mmol/L 3 - 13 mmol/L [facility] Calcium [Mass/Vol] 7.8 mg/dL Low 8.8 - 10. 0 mg/dL [facility] Chloride [Moles/Vol] 109 mmol/L High 98 - 10 7 mmol/L [facility] CO2 [Moles/Vol] 20 mmol/L Low 23 - 31 mmol/L [facility] Creatinine [Mass/Vol] 1.28 mg/dL High 0.72 - 1.25 mg/dL [facility] GFR/1.73 sq M.predicted (S/P/Bld) [Vol rate/Area] 61.3 mL/min - PINF [facility] Comment on above: Calculation based on the Chronic Kidney Disease Epidemiology Collaboration (CKD-EPI) equation refit without adjustment for race Glucose [Mass/Vol] 284 mg/dL High 82 - 115 mg/dL [facility] Interpretation and review of laboratory results Abnormal [facility] Potassium [Moles/Vol] 4.8 mmol/L 3.5 - 5.1 mmol/L [facility] Comment on above: Plasma potassium adriana ues may be up to 0.5 mmol/L lower than serum values. Sodium [Moles/Vol] 139 mmol/L 136 - 145 mmol/L [facility] Urea nitrogen [Mass/Vol] 44 mg/dL High 9 - 23 mg/dL [facility] CBC W Auto Differential pane l (Bld)Ordered By: Nayely Saab on 05-30-2024 Erythrocyte distribution width (RBC) [Ratio] 15.5 % High 11.5 - 15.0 % [facility] Hematocrit (Bld) [Volume fraction] 34.7 % Low 40.0 - 52.0 % [facility] Hemoglobin (Bld) [Mass/Vol] 10.6 g/dL Low 13.0 - 18.0 g/dL [facility] Interpretation and review of laboratory results Abnormal [facility] MCH (RBC) [Entitic mass] 29 pg 26. 0 - 34.0 pg [facility] MCHC (RBC) [Mass/Vol] 30.5 % 30.5 - 36.0 % [facility] MCV (RBC) [Entitic vol] 94.8 fL 77.0 - 99.0 fL [facility] Platelet mean volume (Bld) [Entitic vol] 10.6 fL 9.0 - 12.7 fL [facility] Platelets (Bld) [#/Vol] 190 10*3/uL 140 - 440 10*3/uL [facility] RBC (Bld) [#/Vol] 3.66 10*6/uL Low 4.40 - 5.9 0 10*6/uL [facility] WBC (Bld) [#/Vol] 14.1 10*3/uL High 3.6 - 10.7 10*3/uL [facility] CBC WITH AUTO DIFFERENTIALon 05-30-2024 Erythrocyte distribution width (RBC) [Ratio] 15.5 % High 11.5-15.0 [facility] Comment on above: Performed By: #### L [id number], [id number] ####Wall Steamer: CLARE HUGGINS ([phone])[facility] ([facility])[address] [place] [address] Hematocrit (Bld) [Volume fraction] 34.7 % Low 40.0-52.0 [facility] Comment on above: Performed By: #### L [id number], [id number] ####Wall Steamer: CLARE HUGGINS ([phone])[facility]ITAL[facility] [place] ([facility])[address] Hemoglobin (Bld) [Mass/Vol] 10.6 g/dL Low 13.0-18.0 [facility] Comment on above: Performed By: #### L [id number], [id number] ####Wall Steamer: CLARE HUGGINS ([id number])[facility]ITAL[facility] ([facility])[address] MCH (RBC) [Entitic mass] 29.0 pg Normal 26.0-34.0 [facility] Comment on above: Performed By: #### L [id number], [id number] ####Wall Steamer: CLARE HUGGINS ([phone])[facility] ([facility])[address] MCHC 30.5 % Normal 30.5-36.0 [facility] Comment on above: Performed By: #### L [id number], [id number] ####Wall Steamer: CLARE HUGGINS ([phone])[facility]ITALP[facility]eto [facility] ([facility])[address] MCV (RBC) [Entitic vol] 94.8 fL Normal 77.0-99.0 [facility] Comment on above: Performed By: #### L [id number], [id number] ####Wall Steamer: CLARE HUGGINS ([phone])[facility]ITAL[facility] ([facility])[address] Platelet mean volume (Bld) [Entitic vol] 10.6 fL Normal 9.0-12.7 [facility] Comment on above: Performed By: #### L [id number], [id number] ####Wall Steamer: CLARE HUGGINS ([phone])[facility]ITAL[facility] [place] ([facility])[address] Platelets (Bld) [#/Vol] 190 10*3/uL Normal 140-440 [facility] Comment on above: Performed By: #### L [id number], [id number] ####Wall Steamer: CLARE HUGGINS ([phone])[facility] ([facility])[address] RBC (Bld) [#/Vol] 3.66 10*6/uL Low 4.40-5.90 [facility] Comment on above: Performed By: #### L [id number], [id number] ####Wall Steamer: CLARE HUGGINS ([phone])[facility] ([facility])[address] WBC (Bld) [#/Vol] 14.1 10*3/uL High 3.6-10.7 [facility] Comment on above: Performed By: #### L [id number], [id number] ####Wall Steamer: CLARE HUGGINS ([phone])[facility] ([facility])[address] COMPLETE URINALYSISon 2024 BILIRUBIN, TOTAL PRESENCE IN URINE Negative Normal Negative [facility] Comment on above: Performed By: #### L [id number] ####Wall Steamer: CLARE HUGGINS ([phone])[facility] ([facility])[address] Clarity (U) Turbid Abnormal Clear [facility] Comment on above: Performed By: #### L [id number] ####Wall Steamer: CLARE HUGGINS ([phone])[facility] ([facility])[address] Color (U) Light Yellow Normal Lt. Yellow [facility] Comment on above: Performed By: #### L [id number] ####Wall Steamer: CLARE HUGGINS ([phone])[facility] ([facility])[address] GLUCOSE (MG/DL) IN URINE >1,000 Abnormal Nor mal (<70) [facility] Comment on above: Performed By: #### L [id number] ####Wall Steamer: CLARE HUGGINS ([phone])[facility] [place] ([facility])[address] HEMOGLOBIN PRESENCE IN URINE Negative Normal Negative [facility] Comment on above: Performed By: #### L [id number] ####Wall Steamer: CLARE HUGGINS ([phone])[facility] ([facility])[address] Ketones Ql (U) Negative Normal Negative [facility] Comment on above: Performed By: #### L [id number] ####Wall Steamer: CLARE HUGGINS ([phone])[facility] ([facility])[address] LEUKOCYTE ESTERASE PRESENCE IN URINE BY TEST STRIP Negative Normal Negative [facility] Comment on above: Performed By: #### L [id number] ####Wall Steamer: CLARE HUGGINS ([phone])[facility] ([facility])[address] NITRITE PRESENCE IN URINE Negative Normal Negative [facility] Comment on above: Performed By: #### L [id number] ####Wall Steamer: CLARE HUGGINS ([phone])[facility] ([facility])[address] pH (U) 5.0 [pH] Normal 5.0-8.0 [facility] Comment on above: Performed By: #### L [id number] ####Wall Steamer: CLARE HUGGINS ([phone])[facility]ITALA [facility] ([facility])[address] [place] [address] [place] Protein (U) [Mass/Vol] Negative Normal Negative [facility] Comment on above: Performed By: #### L [id number] ####Wall Steamer: CLARE HUGGINS ([phone])[facility] ([facility])[address] [place] [address] [place] Specific gravity (U) [Rel density] 1.017 Normal 1.005-1.030 [facility] Comment on above: Performed By: #### L [id number] ####Wall Steamer: CLARE HUGGINS ([id number])[facility] ([facility])[address] [place] [address] UROBILINOGEN (MG/DL) IN URINE Normal Normal Normal (0-1) [facility] Comment on above: Performed By: #### L [id number] ####Wall Steamer: CLARECLAUDIO HUGGINS ([phone])[facility] ([facility])[address] [place] [address] COVID-19, Flu A/B, and RSV C omboon 05-30-2024 Interpretation and review of laboratory results Normal [facility] Consulton 05-30-2024 Consult Pharmacy Managed Vancomycin Dosing Service Consult Note Consult Date: 05/30/24 Patient Name: James Reyes Allergies: Penicillins and Tetracyclines & related Age: 68 y.o. Sex: male Estimated body mass index is 40.69 kg/m? as calculated from the following: Height as [...] creatinine, and vancomycin levels interfaced automatically to Rx[employer] and data has been analyzed and interpreted. Start Vancomycin 1000 mg Q 12 hours based on patient age, weight, renal function, and infectious diagnosis (7.4 mg/kg). Predicted AUC = 549 mg/L*hr (goal 400-600 mg/L*hr) Will assess level on 05/31/24 and adjust as appropriate. Trend serum creatinine. Orders placed. Thank you for this consult. Please secure text or call with questions. __ DATE: 05/30/24 TIME: 12:11 PM Bobbi Gasca [facility] Pharmacist Available via Secure Chat [facility] Consult Internal Medicine: M ICU Initial Consult James Reyes : 1955(68 y.o.) Date: May 30, 2024 Attending: Dr. Willis Assessment and Plan: ASSESSMENT: Severe sepsis Acute hypoxemic respir failure Respir acidosis AECOPD MINERVA JESSIKA NAGMA Leukocytosis T2DM uncontrolled w/ hyperglycemia Anemia (chronic, normocytic) CAD w/ h/o CABG 2014. Body mass index is 40.69 kg/m?. Morbid obesity PLAN: Admit to MICU. Complete [...] Acute kidney injury (HCC) 09/11/2015 CAD in [place] artery 08/08/2017 COPD (chronic obstructive pulmonary disease) [...] 07/18/2022 Performed by David Chen MD at [facility] OR CORONARY ARTERY BYPASS GRAFT FOOT [...] attack Mother 61.00 Heart disease Father Other ([id number]) Brother accident Coronary artery disease Father Diabetes Father Social History Socioeconomic History Marital (more content not included)... Normal [facility] D-DIMER,QUANTITATIVEon 05-30 D-DIMER, INNOVANCE 0.58 mg/L High <0.50 [facility] Comment on above: Result Comment: REX Hernandez COMMENTS: Innovance D-Dimer values of <0.50 mg/L FEU can be used in combination with a pre-test probability model (e.g. Well's) to exclude pulmonary embolism (PE) disease, as well as an aid in the diagnosis of deep vein thrombosis (DVT). Performed By: #### L [id number] ####Wall Steamer: CLARE HUGGINS ([phone])[facility] ([facility])[address] [place] [address] ECG 12-LEADon 05-30-2024 ECG 12-LEAD IMPRESSION: Sinus tachycardia Left anterior fascicular block Borderline low voltage, extremity leads Abnormal T, consider ischemia, lateral leads Electronically Signed On 05-30-2024 11:40:42 EST by Arsh Mar [facility] ED Nursing Noteon 05-30-2024 ED Nursing Note Report given to [employer] INST[employer]ER [facility] ED Nursing Note Pt arrived via EMS f rom snf. Co coffee ground emesis upon arrival EMS noted 70% SpO2.EMS placed nasal cannula at 4L. Noted 80%. Moved to NRB at 90% SPO2. EMS placed line and 1 breathing tx . Placed in bed. Provider and EKG at bedside. Vials assessed. Continue with plan of care. [facility] ED Provider Noteon ED Provider Note EMERGENCY DEPARTMENT ENCOUNTER Pt Name: James [...] presents to the emergency department from a group home facility for evaluation of nausea, vomiting, shortness [...] Acute kidney injury (HCC) 09/11/2015 CAD in [place] artery 08/08/2017 COPD (chronic obstructive pulmonary disease) [...] 07/18/2022 Performed by David Chen MD at [facility] OR CORONARY ARTERY BYPASS GRAFT FOOT [...] mouth daily. ergocalciferol (Vitamin D-2) 1.25 MG (09171 UT) capsule Take 1.25 mg by mouth [...] (Glucophage) 500 MG tablet Take 500 mg b (more content not included)... Normal [facility] ED Provider Note [facility] INTENSIVE CARE U [facility] ICU 2 EMERGENCY DEPARTMENT ENCOUNTER Pt Name: James Reyes Birthdate 1955 Date of evaluation: 05/30/2024 Provider: Arsh Mar MD CHIEF COMPLAINT Chief Complaint Patient presents with Vomiting Shortness of Breath HISTORY OF PRESENT ILLNESS (Location/Symptom, Timing/Onset,Context/Se tting, Quality, Duration, Modifying Factors, Severity) Note limiting [...] Acute kidney injury (HCC) 09/11/2015 CAD in [place] artery 08/08/2017 COPD (chronic obstructive pulmonary disease) [...] mouth daily. ergocalciferol (Vitamin D-2) 1.25 MG (23501 UT) capsule Take 1.25 mg by mouth [...] for chest pain. nystatin (Mycostatin) cream pancrelipase, Ovj-Mdpl-Kzsj, (Creon) 41837-31151 units capsule Take by mouth 3 times daily (with meals). pregabalin (Lyrica) 150 MG capsule Take 1 capsule (150 mg) by mouth 2 times daily. Qty: 30 capsule, Refills: 0 Associated Diagnoses: Pain in both knees, unspecified chronicity tamsulosin (Flomax) 0.4 MG 24 hr capsule Take 0.4 mg by mouth daily. tiotropium (Spiriva) 18 MCG inhalation capsule P (more content not included)... Normal [facility] Fibrin D-dimer FEU (PPP) [Ma ss/Vol]on 05-30-2024 Interpretation and review of laboratory results Abnormal [facility] D-Dimer values of <0.50 mg/L FEU can be used in combination with a pre-test probability model (e.g. Well's) to exclude pulmonary embolism (PE) disease, as well as an aid in the diagnosis of deep vein thrombosis (DVT). [facility] HIGH SENSITIVITY TROPONIN, S ERIAL BASELINEon 05-30-2024 TROPONIN HS SERIAL BASELINE 13 ng/L Normal <=35 [facility] Comment on above: Result Comment: In i ndividuals presenting with symptoms > 2h, a baseline troponin <= 5 ng/L suggests acute cardiac injury is unlikely and further serial testing is generally not indicated. Performed By: #### L [id number], [id number], [id number] ####Wall Steamer: CLARE HUGGINS ([phone])[facility] ([facility])[address] [place] [address] HIGH SENSITIVITY TROPONIN, S ERIAL, SECOND TESTon 05-30-2024 2H TROPONIN HS (SERIAL 2ND TROPONIN) 17 ng/L Normal <=35 [facility] Comment on above: Result Comment: Risi ng or falling troponin delta between 2 ??? 15 ng/L as compared to baseline value requires a 3rd serial troponin Performed By: #### L [id number] ####Wall Steamer: CLARE HUGGINS ([phone])[facility] ([facility])[address] [place] [address] HIGH SENSITIVITY TROPONIN, S ERIAL, THIRD TESTon 05-30-2024 4H TROPONIN HS (SERIAL 3RD TROPONIN) 21 ng/L Normal <=35 [facility] Comment on above: Result Comment: 4h t roponin (3rd troponin) samples collected between 1h 40 min and 2h and 20 min of the 2h troponin collection time can be utilized to interpret delta troponins as per [employer] algorithms. Samples collected outside this timeframe need to be interpreted clinically. Rising or falling troponin delta between 2 ??? 15 ng/L as compared to 2h troponin value requires further evaluation. Performed By: #### L [id number] ####Wall Steamer: CLARE HUGGINS ([phone])[facility] ([facility])[address] LACTIC ACID WITH REFLEXon Lactate [Moles/Vol] 1.4 mmol/L Normal 0.5-2.2 [facility] Comment on above: Performed By: #### L [id number] ####Wall Steamer: CLARE HUGGINS ([phone])[facility] ([facility])[address] LEGIONELLA AND STREPTOCOCCUS URINE ANTIGENon 05-30-2024 LEGIONELLA AND STREPTOCOCCUS URINE ANTIGEN LEGIONELLA PNEUMOPHILA URINE ANTIGEN Reference Not Detected Not Detected STREPTOCOCCUS PNEUMONIAE URINE ANTIGEN Reference Not Detected Not Detected ORDER COMMENTS: Methodology: Lateral flow enzyme immunoassay This assay is approved for detection of antigens to Streptococcus pneumoniae and Legionella pneumophila serogroup 1; however, other L. pneumophila serogroups may also be detected. Normal [facility] Comment on above: Performed By: #### L [id number] #### Wall Steamer: CLARE HUGGINS ([phone]) [facility] ([facility]) [address] [place] [address] Laboratory - Chemistry and C hemistry - challengeon 05-30-2024 Glucose [Mass/Vol] 309 mg/dL High 70 - 100 mg/dL [facility] Glucose [Mass/Vol] 287 mg/dL High 70 - 100 mg/dL [facility] Glucose [Mass/Vol] 247 mg/dL High 70 - 100 mg/dL [facility] Lactate [Moles/Vol] 1.4 mmol/L 0.5 - 2. 2 mmol/L [facility] Laboratory - Chemistry and C hemistry - challengeOrdered By: Kalani Moreno on 05-30-2024 Base excess Calc (Bld) [Moles/Vol] -4 mmol/L Low -3.0 - 3.0 mmol/L [facility] CO2 (Bld) [Partial pressure] 42.5 mm[Hg] [facility] CO2 [Moles/Vol] 23.1 mmol/L 22.0 - 28.0 mmol/L [facility] HCO3 (Bld) [Moles/Vol] 21.8 mmol/L 21.0 - 27.0 mmol/L [facility] Oxygen (Bld) [Partial pressure] 85.7 mm[Hg] [facility] pH (Bld) 7.327 [pH] Low 7.350 - 7.450 [facility] Laboratory - Chemistry and C hemistry - challengeOrdered By: Mayi Najera on 05-30-2024 Base excess Calc (Bld) [Moles/Vol] -3 mmol/L -3.0 - 3.0 mmol/L [facility] CO2 (Bld) [Partial pressure] 50.7 mm[Hg] High [facility] CO2 [Moles/Vol] 25.4 mmol/L 22.0 - 28.0 mmol/L [facility] HCO3 (Bld) [Moles/Vol] 23.8 mmol/L 21.0 - 27.0 mmol/L [facility] Oxygen (Bld) [Partial pressure] 64.1 mm[Hg] Low [facility] pH (Bld) 7.29 [pH] Low 7.350 - 7.450 [facility] Laboratory - Coagulationon 0 05-30-2024 Fibrin D-dimer FEU (PPP) [Mass/Vol] 0.58 mg/L High NINF - 0.50 mg/L [facility] Laboratory - Hematology and Cell countsOrdered By: Kalani Moreno on 05-30-2024 Hemoglobin (Bld) [Mass/Vol] 11.5 g/dL Low Screen only [facility] Laboratory - Hematology and Cell countsOrdered By: Mayi Najera on 05-30-2024 Hemoglobin (Bld) [Mass/Vol] 11.3 g/dL Low Screen only [facility] Laboratory - Microbiology an d Antimicrobial susceptibilityon 05-30-2024 FLUAV RNA JOAN+probe Ql (Resp) Not detected Not Detected [facility] FLUBV RNA JOAN+probe Ql (Resp) Not detected Not Detected [facility] RSV RNA JOAN+probe Ql (Resp) Not detected Not Detected [facility] SARS-CoV-2 (COVID-19) RNA JOAN+probe Ql (Resp) Not detected Not Detected [facility] SARS-CoV-2 (COVID-19) RNA JOAN+probe Ql (Unsp spec) Methodology: real-time, RT-PCR The SARS-CoV-2, Flu A/B, and RSV Combo assay is intended for in vitro diagnostic use under the FDA Emergency Use Authorization (EUA). This test has not been FDA cleared or approved. In compliance with this authorization, please visit www.fda.gov/media/36218 5/download or www.fda.gov/media/61069 6/download to access the applicable information sheets. [facility] [employer] MANUAL DIFFERENTIALon 2024 ANISOCYTOSIS PRESENCE IN BLOOD BY LIGHT MICROSCOPY Slight Abnormal (none) [facility] Comment on above: Performed By: #### L [id number], [id number] ####Wall Steamer: CLARE HUGGINS ([phone])[facility] [place] ([facility])[address] BAND NEUTROPHILS TOTAL PER COUNTED LEUKOCYTES BY MANUAL COUNT 7 Normal [facility] Comment on above: Performed By: #### L [id number], [id number] ####Wall Steamer: CLARE HUGGINS ([phone])[facility] [place] ([facility])[address] BANDS 1.0 10*3/uL High <=0.0 [facility] Comment on above: Performed By: #### L [id number], [id number] ####Wall Steamer: CLARE HUGGINS ([phone])[facility] [place] ([facility])[address] CELLS COUNTED TOTAL (#) IN BLOOD 101 Normal [facility] Comment on above: Performed By: #### L [id number], [id number] ####Wall Steamer: CLARE HUGGINS ([phone])[facility] [place] ([facility])[address] DIFFERENTIAL METHOD Manual differential performed Normal [facility] Comment on above: Performed By: #### L [id number], [id number] ####Wall Steamer: CLARE HUGGINS ([id number])[facility] [place] ([facility])[address] LEUKOCYTE MORPHOLOGY FINDING IN BLOOD Normal Normal [facility] Comment on above: Performed By: #### L [id number], [id number] ####Wall Steamer: CLARE [phone])[facility] [place] ([facility])[address] [place] [address] [place] LEUKOCYTES (10*3/UL) NUCLEATED ERYTHROCYTE ADJUST 14.1 10*3/uL High 3.6-10.7 [facility] Comment on above: Performed By: #### L [id number], [id number] ####Wall Steamer: CLARE HUGGINS ([phone])[facility] [place] ([facility])[address] [place] [address] [place] LYMPHOCYTES (10*3/UL) IN BLOOD BY MANUAL COUNT 0.3 10*3/uL Low 1.0-4.3 [facility] Comment on above: Performed By: #### L [id number], [id number] ####Wall Steamer: CLARE WINTERVERN ([phone])[facility] [place] ([facility])[address] [place] [address] [place] LYMPHOCYTES TOTAL PER COUNTED LEUKOCYTES BY MANUAL COUNT 2 Normal [facility] Comment on above: Performed By: #### L [id number], [id number] ####Wall Steamer: CLARE WINTERVERN ([phone])[facility] [place] ([facility])[address] [place] [address] [place] LYMPHOCYTES/100 LEUKOCYTES IN BLOOD BY MANUAL COUNT 2 % Low 15-45 [facility] Comment on above: Performed By: #### L [id number], [id number] ####Wall Steamer: CLARE MERCERKRISTNY ([phone])[facility] [place] ([facility])[address] [place] [address] [place] MONOCYTES (10*3/UL) IN BLOOD BY MANUAL COUNT 1.1 10*3/uL High 0.0-0.9 [facility] Comment on above: Performed By: #### L [id number], [id number] ####Wall Steamer: CLARE WINTERVERN ([id number])[facility] [place] ([facility])[address] [place] [address] [place] MONOCYTES TOTAL PER COUNTED LEUKOCYTES BY MANUAL COUNT 8 Normal [facility] Comment on above: Performed By: #### L [id number], [id number] ####Wall Steamer: CLARE MERCERKRISTYN ([phone])[facility] [place] ([facility])[address] [place] [address] [place] MONOCYTES/100 LEUKOCYTES IN BLOOD BY MANUAL COUNT 8 % Normal 5-13 [facility] Comment on above: Performed By: #### L [id number], [id number] ####Wall Steamer: CLARE MERCERKRISTYN ([id number])[facility] [place] ([facility])[address] [place] [address] [place] NEUTROPHILS (SEGS+BANDS) (10*3/UL) BY MANUAL COUNT 12.7 10*3/uL High 1.8-7.0 [facility] Comment on above: Performed By: #### L [id number], [id number] ####Wall Steamer: CLARE HUGGINS ([id number])[facility] [place] ([facility])[address] [place] [address] [place] NEUTROPHILS BAND FORM/100 LEUKOCYTES IN BLOOD BY MANUAL COUNT 7 % High <=0 [facility] Comment on above: Performed By: #### L [id number], [id number] ####Wall Steamer: CLARE HUGGINS ([phone])[facility] [place] ([facility])[address] [place] [address] [place] NEUTROPHILS TOTAL PER COUNTED LEUKOCYTES BY MANUAL COUNT 84 Normal [facility] Comment on above: Performed By: #### L [id number], [id number] ####Wall Steamer: CLARE HUGGINS ([id number])[facility] [place] ([facility])[address] [place] [address] [place] OVALOCYTES PRESENCE IN BLOOD BY LIGHT MICROSCOPY Slight Abnormal (none) [facility] Comment on above: Performed By: #### L [id number], [id number] ####Wall Steamer: CLARE HUGGINS ([phone])[facility] [place] ([facility])[address] [place] [address] [place] PLATELET MORPHOLOGY IN BLOOD Normal Normal [facility] Comment on above: Performed By: #### L [id number], [id number] ####Wall Steamer: CLARE HUGGINS ([phone])[facility] ([facility])[address] POLYCHROMASIA IN BLOOD BY LIGHT MICROSCOPY Slight Abnormal (none) [facility] Comment on above: Performed By: #### L [id number], [id number] ####Wall Steamer: CLARE HUGGINS ([phone])[facility] (SBHLAB)[address] SEGEMENTED NEUTROPHILS/100 LEUKOCYTES BY MANUAL COUNT 83 % High 38-82 [facility] Comment on above: Performed By: #### L [id number], [id number] ####Wall Steamer: CLARE HUGGINS ([phone])[facility] (SBHLAB)[address] [place] [address] SEGMENTED NEUTROPHILS (10*3/UL)IN BLOOD BY MANUAL COUNT 12.7 10*3/uL High 1.8-7.5 [facility] Comment on above: Performed By: #### L [id number], [id number] ####Wall Steamer: CLARE HUGGINS ([id number])[facility] (SBHLAB)[address] [place] [address] MRSA BY PCRon 05-30-2024 MRSA BY PCR STAPHYLOCOCCUS AUREU S Reference Not Detected Not Detected MECA GENE Reference Not Detected Not Detected ORDER COMMENTS: No Staphylococcus aureus detected. Negative nasal MRSA PCR has a high negative predictive value for MRSA pneumonia. Consider stopping Vancomycin if no other clinical indication. Contact Antimicrobial Stewardship for further recommendations. Staphylococcus aureus nasal screen by real-time PCR. This test was modified and its performance characteristics determined by [facility]. The U. S. Food and Drug Administration has not approved or cleared this test; however, FDA clearance or approval is not currently required for clinical use. The results are not intended to be used as the sole means for clinical diagnosis or patient management decisions. Normal [facility] Comment on above: Performed By: #### L [id number] ####Wall Steamer: SWATI RATLIFF ([id number])[facility] ([place] [id number] [facility] MRSA DNA JOAN+probe Ql (Nose) on 05-30-2024 Interpretation and review of laboratory results Normal [facility] mecA gene Not detected Not Detected [facility] Staphylococcus aureus Not detected Not Detected [facility] No Staphylococcus aureus detected. Negative nasal MRSA PCR has a high negative predictive value for MRSA pneumonia. Consider stopping Vancomycin if no other clinical indication. Contact Antimicrobial Stewardship for further recommendations. Staphylococcus aureus nasal screen by real-time PCR. This test was modified and its performance characteristics determined by [facility]. The U. S. Food and Drug Administration has not approved or cleared this test; however, FDA clearance or approval is not currently required for clinical use. The results are not intended to be used as the sole means for clinical diagnosis or patient management decisions. [facility] Manual differential performe d Ql (Bld)Ordered By: Paula Armenta on 05-30-2024 Anisocytosis Ql (Bld) Slight Abnormal (none) [facility] Band form neutrophils (Bld) [#/Vol] 1 10*3/uL High NINF - 0.0 10*3/uL [facility] Band form neutrophils/100 WBC (Bld) 7 % High NINF - 0 % [facility] Bands Manual 7 [facility] Cells Counted Total (Bld) [#] 101 {cells} [facility] Differential Method Manual differential performed [facility] Interpretation and review of laboratory results Abnormal [facility] Leukocyte morphology finding Nom (Bld) Normal [facility] Lymphocytes (Bld) [#/Vol] 0.3 10*3/uL Low 1.0 - 4.3 10*3/uL [facility] Lymphocytes Manual 2 [facility] Lymphocytes/100 WBC (Bld) 2 % Low 15 - 45 % [facility] Monocytes (Bld) [#/Vol] 1.1 10*3/uL High 0.0 - 0.9 10*3/uL [facility] Monocytes Manual 8 [facility] Monocytes/100 WBC (Bld) 8 % 5 - 13 % [facility] Neutrophils (Bld) [#/Vol] 12.7 10*3/uL High 1.8 - 7.5 10*3/uL [facility] Neutrophils Manual 84 [facility] Ovalocytes LM Ql (Bld) Slight Abnormal (none) [facility] Platelet morphology finding Nom (Bld) Normal [facility] Polychromasia LM Ql (Bld) Slight Abnormal (none) [facility] Segmented neutrophils/100 WBC (Bld) 83 % High 38 - 82 % [facility] WBC corrected for nucl RBC (Bld) [#/Vol] 14.1 10*3/uL High 3.6 - 10.7 10*3/uL [facility] NT PRO BNPon 05-30-2024 Natriuretic peptide B (Bld) [Mass/Vol] 533 pg/mL High <125 [facility] Comment on above: Performed By: #### L [id number], [id number], [id number] ####Wall Steamer: CLARE HUGGINS ([phone])[facility] (SBHLAB)[address] [place] [address] Natriuretic peptide B [Mass/ Vol]on 05-30-2024 Interpretation and review of laboratory results Abnormal [facility] Natriuretic peptide B (Bld) [Mass/Vol] 533 pg/mL High NINF - 125 pg/mL [facility] No Panel Informationon 05-30 Interpretation and review of laboratory results Abnormal [facility] Performed by: [facility], [address] [place] [address] CLIA ID: [id number] [facility] Interpretation and review of laboratory results Abnormal [facility] Performed by: [facility], [address] [place] [address] CLIA ID: [id number] [facility] 4h Troponin HS (Serial 3rd Troponin) 21 ng/L NINF - 35 ng/L [facility] Comment on above: 4h troponin (3rd tro ponin) samples collected between 1h 40 min and 2h and 20 min of the 2h troponin collection time can be utilized to interpret delta troponins as per [facility] algorithms. Samples collected outside this timeframe need to be interpreted clinically. Rising or falling troponin delta between 2 15 ng/L as compared to 2h troponin value requires further evaluation. Interpretation and review of laboratory results Normal [facility] Interpretation and review of laboratory results Abnormal [facility] Performed by: [facility], [address] [place] [address] CLIA ID: [id number] [facility] P Warren 37 degrees [facility] MO Interval 195 ms [facility] QRS Warren -60 degrees [facility] QRSD Interval 114 ms [facility]val 358 ms [facility] QTC Interval 473 ms [facility] T Wave Warren 129 degrees [facility] Sinus tachycardia Left anterior fascicular block Borderline low voltage, extremity leads Abnormal T, consider ischemia, lateral leads Electronically Signed On 05-30-2024 11:40:42 EST by Arsh Mar CV Arsh Carrillo MD - 05/30/2024 IMPRESSION: Sinus tachycardia Left anterior fascicular block Borderline low voltage, extremity leads Abnormal T, consider ischemia, lateral leads Electronically Signed On 05-30-2024 11:40:42 EST by Arsh Mar [facility] 2h Troponin HS (Serial 2nd Troponin) 17 ng/L NINF - 35 ng/L [facility] Comment on above: Rising or falling tr oponin delta between 2 15 ng/L as compared to baseline value requires a 3rd serial troponin Interpretation and review of laboratory results Normal [facility] Interpretation and review of laboratory results Normal [facility] Troponin HS Serial Baseline 13 ng/L NINF - 35 ng/L [facility] Comment on above: In individuals prese nting with symptoms > 2h, a baseline troponin <= 5 ng/L suggests acute cardiac injury is unlikely and further serial testing is generally not indicated. [facility] Interpretation and review of laboratory results Normal [facility] No Panel InformationOrdered By: Rylie Salvador on 05-30-2024 Interpretation and review of laboratory results Normal [facility] Legionella pneumophila Ag Not detected Not Detected [facility] Streptococcus pneumoniae Ag Not detected Not Detected [facility] Methodology: Lateral flow enzyme immunoassay This assay is approved for detection of antigens to Streptococcus pneumoniae and Legionella pneumophila serogroup 1; however, other L. pneumophila serogroups may also be detected. [facility] No Panel InformationOrdered By: Kalani Moreno on 05-30-2024 Interpretation and review of laboratory results Abnormal [facility] Source Of Oxygen Bi-PAP [facility] Comment on above: 50% [facility] No Panel InformationOrdered By: Mayi Najera on 05-30-2024 Interpretation and review of laboratory results Abnormal [facility] Source Of Oxygen Heated High Flow [facility] Progress Noteon 05-30-2024 Progress Note Vancomycin therapy h as been discontinued by Dr. Haydee Willis on 30may2024. Thank you for the consult. Pharmacy signing off for vancomycin dosing. Jessica LinD, Date: 05/30/24 Time: 6:10 PM Normal [facility] RESPIRATORY PATHOGENS PANEL BY PCRon 05-30-2024 RESPIRATORY PATHOGENS PANEL BY PCR SARS-COV-2 Reference Not Detected Not Detected ADENOVIRUS Reference Not Detected Not Detected CORONAVIRUS HKU1 Reference Not Detected Not Detected CORONAVIRUS NL63 Reference Not Detected Not Detected CORONAVIRUS 229E Reference Not Detected Not Detected CORONAVIRUS OC43 Reference Not Detected Not Detected HUMAN METAPNEUMOVIRUS Reference Not Detected Not Detected HUMAN RHINOVIRUS/ENTEROVIRUS Reference Not Detected Not Detected INFLUENZA A Reference Not Detected Not Detected INFLUENZA B Reference Not Detected Not Detected PARAINFLUENZA 1 Reference Not Detected Not Detected PARAINFLUENZA 2 Reference Not Detected Not Detected PARAINFLUENZA 3 Reference Not Detected Not Detected PARAINFLUENZA 4 Reference Not Detected Not Detected RESPIRATORY SYNCYTIAL VIRUS Reference Not Detected Not Detected BORDETELLA PERTUSSIS Reference Not Detected Not Detected BORDETELLA PARAPERTUSSIS Reference Not Detected Not Detected CHLAMYDIA PNEUMONIAE Reference Not Detected Not Detected MYCOPLASMA PNEUMONIAE Reference Not Detected Not Detected ORDER COMMENTS: Methodology: Multiplex PCR Normal [facility] Comment on above: Performed By: #### L [id number] ####Wall Steamer: SWATI RATLIFF ([phone])[address] Respiratory pathogens DNA an d RNA panel JOAN+non-probe (Nph)on 05-30-2024 Adenovirus Not detected Not Detected [facility] B. pertussis DNA JOAN+probe Ql (Unsp spec) Not detected Not Detected [facility] Bordetella parapertussis Not detected Not Detected [facility] Chlamydia pneumoniae Not detected Not Detected [facility] Coronavirus 229E Not detected Not Detected [facility] Coronavirus HKU1 Not detected Not Detected [facility] Coronavirus NL63 Not detected Not Detected [facility] Coronavirus OC43 Not detected Not Detected [facility] FLUAV RNA JOAN+non-probe Ql (Nph) Not detected Not Detected [facility] FLUBV RNA JOAN+non-probe Ql (Nph) Not detected Not Detected [facility] Human Metapneumovirus Not detected Not Detected [facility] Human Rhinovirus/Enterovirus Not detected Not Detected [facility] Interpretation and review of laboratory results Normal [facility] Mycoplasma pneumoniae Not detected Not Detected [facility] Parainfluenza 1 Not detected Not Detected [facility] Parainfluenza 2 Not detected Not Detected [facility] Parainfluenza 3 Not detected Not Detected [facility] Parainfluenza 4 Not detected Not Detected [facility] Respiratory Syncytial Virus Not detected Not Detected [facility] SARS-CoV-2 (COVID-19) RNA JOAN+non-probe Ql (Nph) Not detected Not Detected [facility] Methodology: Multipl ex PCR [facility] SARS-COV-2, FLU A/B, AND RSV COMBOon 05-30-2024 SARS-CoV-2 (COVID-19) RNA JOAN+probe Ql (Unsp spec) SARS-COV-2 Reference Not Detected Not Detected RESPIRATORY SYNCYTIAL VIRUS Reference Not Detected Not Detected INFLUENZA A (CEPHEID) Reference Not Detected Not Detected INFLUENZA B (CEPHEID) Reference Not Detected Not Detected ORDER COMMENTS: Methodology: real-time, RT-PCR The SARS-CoV-2, Flu A/B, and RSV Combo assay is intended for in vitro diagnostic use under the FDA Emergency Use Authorization (EUA). This test has not been FDA cleared or approved. In compliance with this authorization, please visit www.fda.gov/media/58817 5/download or www.fda.gov/media/38049 6/download to access the applicable information sheets. Normal [facility] System [facility] Comment on above: Performed By: #### L [id number] ####Wall Steamer: CLARE HUGGINS ([id number])[facility] ([facility])[address] [place] [address] Urinalysis complete panel (U )Ordered By: Papo Christopher on 05-30-2024 Bilirubin Ql (U) Negative Negative mg/dL [facility] Clarity (U) Turbid Abnormal Clear [facility] Color (U) Light Yellow Lt. Yellow [facility] Glucose Ql (U) >1,000 Abnormal Normal (<70) mg/dL [facility] Hemoglobin Ql (U) Negative Negative mg/dL [facility] Interpretation and review of laboratory results Abnormal [facility] Ketones (U) [Mass/Vol] Negative Negat abdulkadir mg/dL [facility] Leukocyte esterase Test strip Ql (U) Negative Negative Poornima/uL [facility] Nitrite Ql (U) Negative Negative [facility] th pH (U) 5.0 [pH] 5.0 - 8.0 pH [facility] Protein (U) [Mass/Vol] Negative Negat abdulkadir mg/dL [facility] Specific gravity (U) [Rel density] 1.017 1.005 - 1.030 [facility] Urobilinogen (U) [Mass/Vol] Normal Normal (0-1) mg/dL [facility] Vital signson 05-30-2024 Heart rate 105 /min bpm [facility] XR Chest Single viewon 05-30 FINDINGS [...] MD Electronically Signed Date/Time: 05/30/2024 9:11 AM [facility] Patient Name: JAMES REYES : 1955 Exam Date/Time: 05/30/2024 09:03 Procedure: XR CHEST 1 VIEW Ordering Provider: MAR GREGORY Reason For Exam: Dyspnea hypoxia CHEST CLINICAL INDICATION: Hypoxia TECHNIQUE: AP portable chest COMPARISON: 11/30/2023 [facility] Jimbo Voss MD - 05/30/2024 Patient [...] Electronically Signed Date/Time: 05/30/2024 9:11 AM EST [facility] Radiology Study observation (narrative) [facility] XR Chest Single viewOrdered By: Jimbo Voss on 05-30-2024 [facility] Work Phone: US RETROPERITONEALon 025 US RETROPERITONEAL Patient Name: JAMES REYES : 1955 Exam [...] Electronically Signed Date/Time: 05/23/2024 4:33 PM EST Normal [facility] US Retroperitoneumon 025 No significant sonographic abnormality of the kidneys. Report Dictated on Electronically Signed By: Marshall He MD Electronically Signed Date/Time: 05/23/2024 4:33 PM [facility] Patient Name: JAMES [...] distended urinary bladder without obvious sonographic abnormality. [facility] Marshall He MD - 05/23/2024 Patient [...] MD Electronically Signed Date/Time: 05/23/2024 4:33 PM [facility] [employer] RetroperitoneumOrdered By : Marshall He on 05-23-2024 [employer] Work Phone: US Retroperitoneumon 025 Radiology Study observation (narrative) [facility] Diagnostic total prostate sp ecific antigen (PSA) measurementOrdered By: Chelle Troncoso on 05-14-2024 Prostate Specific Antigen Total 0.07 ng/mL 0.0-4.0 [facility] Comment on above: This test was perfor med using the TPSA assay method for [employer] chemistry system. Values obtained with differentassay methods cannot be used interchangably.When changing PSA assays in the course of monitoring apatient, additional sequential testing should be carriedout to confirm baseline values. AMB POC URINALYSIS DIP STICK AUTO W/O MICROon 05-13-2024 Bilirubin, UA Negative [facility] Blood, UA Negative [facility] Glucose, UA 500 [facility] Ketones, UA (mg/dL) Negative Negative mg/dL [facility] Leukocytes, UA Negative [facility] Nitrite, UA Negative [facility] pH, UA 5.5 [facility] Protein, UA Negative [facility] Spec Grav, UA 1.015 [facility] Urobilinogen[facility] UA 0.2 [facility] Office Visiton 05-13-2024 Follow-up visit [id number] Bethanie Reyes 1955 M Date Provider Department Center 05/13/2024 [id number] [place] [facility] [place] [facility] None Family History Problem Relation Age of Onset Heart attack Mother 61.00 Heart disease Father Other Brother Comments: accident Coronary artery disease Father Diabetes Father Family Status - Relation Status Age at Mother Father Brother Brother Alive Brother Alive Level of Service:83879 MO OFFICE/OUTPATIENT NEW MODERATE MDM 45 MINUTES Reason for Visit and Comments: New Patient [542] Urinary Incontinence [349] - Sometimes he can feel when he has to go but He can't make it in time. I'm tired of wetting my pants." Urinary Frequency [062091] - Unable to give a urine sample Normal [facility] Progress Noteon 05-13-2024 Progress Note PVR: 122 mL Normal [facility] Progress Note Ap Hoyt 05/13/2024 at 1:36 PM UROLOGY INITIAL OFFICE [...] Acute kidney injury (HCC) 09/11/2015 CAD in [place] artery 08/08/2017 COPD (chronic obstructive pulmonary disease) [...] Historical Provider, ergocalciferol (Vitamin D-2) 1.25 MG (19848 UT) capsule Take 1.25 mg by mouth [...] Yes Historical Provider, Incruse Ellipta 62.5 MCG/ACT (more content not included)... Normal [facility] Bilirubin directOrdered By: Chelle Troncoso on 04-01-2024 Bilirubin.direct [Mass/Vol] 0.08 mg/dL 0.00-0.30 [facility] Bilirubin, totalOrdered By: Chelle Troncoso on 04-01-2024 Bilirubin [Mass/Vol] 0.40 mg/dL 0.20-1.[address] [facility] Comment on above: For patients on eltr ombopag therapy, use of Dimension [place] TBIL is not recommended. Blood urea nitrogen (BUN)/cr eatinine ratioOrdered By: Chelle Troncoso on 04-01-2024 Urea nitrogen/Creatinine [Mass ratio] 18.6 mg/mg 10-20 [facility] Carbon dioxide measurementOr dered By: Chelle Troncoso on 04-01-2024 CO2 [Moles/Vol] 24.0 mmol/L 21.0-32.0 [facility] Chloride measurementOrdered By: Chelle Troncoso on 04-01-2024 Chloride [Moles/Vol] 111 mmol/L High 98-[address] [facility] Erythrocyte distribution wid th (RBC) [Ratio]Ordered By: Chelle Troncoso on 04-01-2024 Erythrocyte distribution width (RBC) [Entitic vol] 50.4 fL High 35.1-43.9 [facility] Erythrocyte distribution wid th ratioOrdered By: Chelle Troncoso on 04-01-2024 Erythrocyte distribution width (RBC) [Ratio] 14.2 % 11.6-14.6 [facility] Estimated glomerular filtrat ion rate (GFR) AmericanOrdered By: Chelle Troncoso on 04-01-2024 Estimated GFR (MDRD) Amer 79 mL/min >60 [facility] Comment on above: GFR Calc Glomerular filtration rate ( GFR) estimationOrdered By: Chelle Troncoso on 04-01-2024 Estimated GFR (MDRD) Non-Af Amer 65 mL/min >60 [facility] Comment on above: Non- GFR Calc Glucose measurementOrdered B y: Chelle Troncoso on 04-01-2024 Glucose [Mass/Vol] 205 mg/dL High 74-106 [facility] Comment on above: Glucose result great er than or equal to 200 mg/dLsuggests DIABETES MELLITUS per A.D.A. criteria. Hematocrit Auto (Bld) [Volum e fraction]Ordered By: Chelle Troncoso on 04-01-2024 Hematocrit (Bld) [Volume fraction] 34.2 % Low 40-54 [facility] Hemoglobin A1c percentageOrd ered By: Chelle Troncoso on 04-01-2024 HbA1c (Bld) [Mass fraction] 8.2 % High 3.8-5.6 [facility] Comment on above: Normal < 5.7 % Predi abetic 5.7 - 6.4 % Diabetic >or= 6.5 % Please note range changes. Hemoglobin measurementOrdere d By: Chelle Troncoso on 04-01-2024 Hemoglobin (Bld) [Mass/Vol] 10.4 g/dL Low 13.0-16.5 [facility] High density lipoprotein (HD L) measurementOrdered By: Chelle Troncoso on 04-01-2024 Cholesterol in HDL [Mass/Vol] 44 mg/dL >40 [facility] Comment on above: The drugs N-Acetylcy steine and Metamizole may falsely depress this assay. Reference Range HDL <40 mg/dL Low HDL Cholesterol HDL >or= 60 mg/dL High HDL Cholesterol Laboratory - Chemistry and C hemistry - challengeOrdered By: Chelle Troncoso on 04-01-2024 AST [Catalytic activity/Vol] 8 U/L Low 15-37 [facility] Low density lipoprotein (LDL ) cholesterol measurementOrdered By: Chelle Troncoso on 04-01-2024 Cholesterol in LDL [Mass/Vol] 29 mg/dL 0-130 [facility] MCV (mean corpuscular volume ) determinationOrdered By: Chelle Troncoso on 04-01-2024 MCV (RBC) [Entitic vol] 95.8 fL High 80-94 [facility] Mean corpuscular hemoglobin (MCH) determinationOrdered By: Chelle Troncoso on 04-01-2024 MCH (RBC) [Entitic mass] 29.1 pg 27.0-32.0 [facility] Mean corpuscular hemoglobin concentration (MCHC) determinationOrdered By: Chelle Troncoso on 04-01-2024 MCHC (RBC) [Mass/Vol] 30.4 g/dL Low 32-36 [facility] Mean platelet volume determi nationOrdered By: Chelle Troncoso on 04-01-2024 Platelet mean volume (Bld) [Entitic vol] 10.1 fL 6.2-12.0 [facility] Platelet countOrdered By: Magdalena Troncoso on 04-01-2024 Platelets (Bld) [#/Vol] 282 10*3/uL 150-450 [facility] Potassium measurementOrdered By: Chelle Troncoso on 04-01-2024 Potassium [Moles/Vol] 4.4 mmol/L 3.5-5.1 [facility] RBC Auto (Bld) [#/Vol]Ordere d By: Chelle Troncoso on 04-01-2024 RBC (Bld) [#/Vol] 3.57 10*6/uL Low 4.6-6.2 [facility] Serum anion gap measurementO rdered By: Chelle Troncoso on 04-01-2024 Anion gap [Moles/Vol] 5 mmol/L 5-15 [facility] Serum globulin measurementOr dered By: Chelle Troncoso on 04-01-2024 Globulin (S) [Mass/Vol] 3.0 g/dL 2.2-4.2 [facility] Serum or plasma alanine weller otransferase (ALT) measurementOrdered By: Chelle Troncoso on 04-01-2024 ALT [Catalytic activity/Vol] 15 U/L Low 16-61 [facility] Serum or plasma albumin william urement (mass/volume)Ordered By: Chelle Troncoso on 04-01-2024 Albumin [Mass/Vol] 2.8 g/dL Low 3.2-5.0 [facility] Serum or plasma alkaline maritza sphatase measurementOrdered By: Chelle Troncoso on 04-01-2024 ALP [Catalytic activity/Vol] 85 U/L 45-117 [facility] Serum or plasma calcium william urement (mass/volume)Ordered By: Chelle Troncoso on 04-01-2024 Calcium [Mass/Vol] 8.6 mg/dL 8.5-10.1 [facility] Serum or plasma cholesterol measurement (mass/volume)Ordered By: Chelle Troncoso on 04-01-2024 Cholesterol [Mass/Vol] 92 mg/dL <200 [facility] Comment on above: <200 mg/dL Desirable 200-240 mg/dL Borderline >240 mg/dL High Risk Serum or plasma creatinine m easurement (mass/volume)Ordered By: Chelle Troncoso on 04-01-2024 Creatinine [Mass/Vol] 1.18 mg/dL 0.70-1.30 [facility] Comment on above: The validity of the calculated GFR & GFRAA in patients over 70 years has not been determined. Clinical correlation is essential. Serum or plasma urea nitroge n measurement (mass/volume)Ordered By: Chelle Troncoso on 04-01-2024 Urea nitrogen [Mass/Vol] 22 mg/dL High 7-18 [facility] Sodium levelOrdered By: Lyle Troncoso on 04-01-2024 Sodium [Moles/Vol] 140 mmol/L 136-145 [facility] TSH QnOrdered By: Chelle roman on 04-01-2024 Thyroid Stimulating Hormone (TSH) 2.010 uIU/mL 0.358-3.740 [facility] Total proteinOrdered By: Costa Troncoso on 04-01-2024 Protein [Mass/Vol] 5.8 g/dL Low 6.4-8.2 [facility] Triglycerides measurementOrd ered By: Chelle Troncoso on 04-01-2024 Triglyceride [Mass/Vol] 97 mg/dL <199 [facility] Comment on above: The drugs N-Acetylcy steine and Metamizole may falsely depress this assay.Serum Triglycerides Reference Interval Normal <150 mg/dL Borderline high 150 - 199 mg/dL High 200 - 499 mg/dL Very High > or = 500 mg/dL Very low density lipoprotein (VLDL) cholesterol measurementOrdered By: Chelle Troncoso on 04-01-2024 VLDL Cholesterol 19 mg/dL 5-40 [facility] White blood cell (WBC) count Ordered By: Chelle Troncoso on 04-01-2024 WBC (Bld) [#/Vol] 6.3 10*3/uL 4.4-11.0 [facility] Blood urea nitrogen (BUN)/cr eatinine ratioOrdered By: Chelle Troncoso on 03-26-2024 Urea nitrogen/Creatinine [Mass ratio] 21.0 mg/mg High 10-20 [facility] Carbon dioxide measurementOr dered By: Chelle Troncoso on 03-26-2024 CO2 [Moles/Vol] 25.0 mmol/L 21.0-32.0 [facility] Chloride measurementOrdered By: Chelle Troncoso on 03-26-2024 Chloride [Moles/Vol] 109 mmol/L High 98-[address] [facility] Erythrocyte distribution wid th (RBC) [Ratio]Ordered By: Chelle Troncoso on 03-26-2024 Erythrocyte distribution width (RBC) [Entitic vol] 51.4 fL High 35.1-43.9 [facility] Erythrocyte distribution wid th ratioOrdered By: Chelle Troncoso on 03-26-2024 Erythrocyte distribution width (RBC) [Ratio] 14.4 % 11.6-14.6 [facility] Estimated glomerular filtrat ion rate (GFR) AmericanOrdered By: Chelle Troncoso on 03-26-2024 Estimated GFR (MDRD) Amer 78 mL/min >60 [facility] Comment on above: GFR Calc Glomerular filtration rate ( GFR) estimationOrdered By: Chelle Troncoso on 03-26-2024 Estimated GFR (MDRD) Non-Af Amer 65 mL/min >60 [facility] Comment on above: Non- GFR Calc Glucose measurementOrdered B y: Chelle Troncoso on 03-26-2024 Glucose [Mass/Vol] 255 mg/dL High 74-106 [facility] Comment on above: Glucose result great er than or equal to 200 mg/dLsuggests DIABETES MELLITUS per A.D.A. criteria. Hematocrit Auto (Bld) [Volum e fraction]Ordered By: Chelle Troncoso on 03-26-2024 Hematocrit (Bld) [Volume fraction] 35.5 % Low 40-54 [facility] Hemoglobin measurementOrdere d By: Chelle Troncoso on 03-26-2024 Hemoglobin (Bld) [Mass/Vol] 10.7 g/dL Low 13.0-16.5 [facility] MCV (mean corpuscular volume ) determinationOrdered By: Chelle Troncoso on 03-26-2024 MCV (RBC) [Entitic vol] 97.0 fL High 80-94 [facility] Mean corpuscular hemoglobin (MCH) determinationOrdered By: Chelle Troncoso on 03-26-2024 MCH (RBC) [Entitic mass] 29.2 pg 27.0-32.0 [facility] Mean corpuscular hemoglobin concentration (MCHC) determinationOrdered By: Chelle Troncoso on 03-26-2024 MCHC (RBC) [Mass/Vol] 30.1 g/dL Low 32-36 [facility] Mean platelet volume determi nationOrdered By: Chelle Troncoso on 03-26-2024 Platelet mean volume (Bld) [Entitic vol] 9.9 fL 6.2-12.0 [facility] Platelet countOrdered By: Magdalena Troncoso on 03-26-2024 Platelets (Bld) [#/Vol] 266 10*3/uL 150-450 [facility] Potassium measurementOrdered By: Chelle Troncoso on 03-26-2024 Potassium [Moles/Vol] 4.4 mmol/L 3.5-5.1 [facility] RBC Auto (Bld) [#/Vol]Ordere d By: Chelle Troncoso on 03-26-2024 RBC (Bld) [#/Vol] 3.66 10*6/uL Low 4.6-6.2 [facility] Serum anion gap measurementO rdered By: Chelle Troncoso on 03-26-2024 Anion gap [Moles/Vol] 7 mmol/L 5-15 [facility] Serum or plasma calcium william urement (mass/volume)Ordered By: Chelle Troncoso on 03-26-2024 Calcium [Mass/Vol] 9.2 mg/dL 8.5-10.1 [facility] Serum or plasma creatinine m easurement (mass/volume)Ordered By: Chelle Troncoso on 03-26-2024 Creatinine [Mass/Vol] 1.19 mg/dL 0.70-1.30 [facility] Comment on above: The validity of the calculated GFR & GFRAA in patients over 70 years has not been determined. Clinical correlation is essential. Serum or plasma urea nitroge n measurement (mass/volume)Ordered By: Chelle Troncoso on 03-26-2024 Urea nitrogen [Mass/Vol] 25 mg/dL High 7-18 [facility] Sodium levelOrdered By: Lyle Troncoso on 03-26-2024 Sodium [Moles/Vol] 140 mmol/L 136-145 [facility] White blood cell (WBC) count Ordered By: Cehlle Troncoso on 03-26-2024 WBC (Bld) [#/Vol] 11.2 10*3/uL High 4.4-11.0 [facility] 36on 03-15-2024 36 TC to Aydee to get t he re weight on the Pt She said that the Pt weight has been as follows on weight checks 02/18- 302# 03/07 284# Today 307.2# then they re weighted the Pt and he was 253# The nurse said that she is pretty sure that the scale is broke They are using another residents scale to get another weight on the Pt. Pt weight was 283# so a 1# pound loss Aydee said that she was sorry, I let her know that it is ok. Normal [facility] 36 TC to Aydee Pt nurse today at [facility] She said the Pt has had a 23# weight gain in 1 week Pt BP today premedication was 127/76 HR 93 Pt has no abd bloating No BLE Edema No Shortness of breath and is still going outside to smoke Nurse said that they would get a re weight on the Pt to confirm that this is correct Normal [facility] 36 Aydee from [facility] calling pt has had a 23# weight gain in 1 week. Call [phone] ask for the [address] [place] [address] nurse. Normal [facility] 37on 03-08-2024 37 Begin using SL nitroglycerin PRN for chest [...] ( low- to moderate grade) Office number [phone] Normal [facility] BASIC METABOLIC PANELon 11-2 Anion gap [Moles/Vol] 11 mmol/L Normal 3-13 [facility] Comment on above: Performed By: #### L [id number], LAB15 ####Wall Steamer: SWATI RATLIFF ([phone])[facility])[address] [place] [address] Calcium [Mass/Vol] 9.1 mg/dL Normal 8.4-10.4 [facility] Comment on above: Performed By: #### L [id number], LAB15 ####Wall Steamer: SWATI RATLIFF ([id number])[facility])[address] [place] [address] Chloride [Moles/Vol] 105 mmol/L Normal 98-107 [facility] Comment on above: Performed By: #### L [id number], LAB15 ####Wall Steamer: SWATI RATLIFF ([id number])[facility] ([facility])[address] [place] [address] [place] CO2 [Moles/Vol] 19 mmol/L Low 22-30 [facility] Comment on above: Performed By: #### L [id number], LAB15 ####Wall Steamer: SWATI RATLIFF ([id number])[facility])[address] [place] [address] Creatinine [Mass/Vol] 1.01 mg/dL Normal 0.66-1.25 [facility] Comment on above: Performed By: #### L [id number], LAB15 ####Wall Steamer: SWATI RATLIFF ([id number])[facility])[address] [place] [address] [place] GLOMERULAR FILTRATION RATE ML/MIN/1.73 SQ M.PREDICTED 81.5 mL/min/1.73m*2 Normal >60.0 [facility] Comment on above: Result Comment: Calc ulation based on the Chronic Kidney Disease Epidemiology Collaboration (CKD-EPI) equation refit without adjustment for race Performed By: #### L [id number], LAB15 ####Wall Steamer: SWATI RATLIFF ([id number])[facility] ([facility])[address] [place] [address] [place] Glucose [Mass/Vol] 265 mg/dL High 70-100 [facility] Comment on above: Performed By: #### L [id number], LAB15 ####Wall Steamer: SWATI RATLIFF ([id number])[facility] ([facility])[address] [place] [address] Potassium [Moles/Vol] 4.0 mmol/L Normal 3.5-5.1 [facility] Comment on above: Performed By: #### L [id number], LAB15 ####Wall Steamer: SWATI RATLIFF ([id number])[facility] ([facility])[address] [place] [address] Sodium [Moles/Vol] 135 mmol/L Normal 135-145 [facility] Comment on above: Performed By: #### L [id number], LAB15 ####Wall Steamer: SWATI RATLIFF ([id number])[facility] ([facility])[address] [place] [address] Urea nitrogen [Mass/Vol] 22 mg/dL High 9-20 [facility] Comment on above: Performed By: #### L [id number], LAB15 ####Wall Steamer: SWATI RATLIFF ([id number])[facility] ([facility])[address] [place] [address] Basic metabolic 1998 panelon 03-08-2024 Anion gap [Moles/Vol] 11 mmol/L 3 - 13 mmol/L [facility] Calcium [Mass/Vol] 9.1 mg/dL 8.4 - 10. 4 mg/dL [facility] Chloride [Moles/Vol] 105 mmol/L 98 - 10 7 mmol/L [facility] CO2 [Moles/Vol] 19 mmol/L Low 22 - 30 mmol/L [facility] Creatinine [Mass/Vol] 1.01 mg/dL 0.66 - 1.25 mg/dL [facility] GFR/1.73 sq M.predicted (S/P/Bld) [Vol rate/Area] 81.5 mL/min - PINF [facility] Comment on above: Calculation based on the Chronic Kidney Disease Epidemiology Collaboration (CKD-EPI) equation refit without adjustment for race Glucose [Mass/Vol] 265 mg/dL High 70 - 100 mg/dL [facility] Interpretation and review of laboratory results Abnormal [facility] Potassium [Moles/Vol] 4 mmol/L 3.5 - 5.1 mmol/L [facility] Sodium [Moles/Vol] 135 mmol/L 135 - 145 mmol/L [facility] Urea nitrogen [Mass/Vol] 22 mg/dL High 9 - 20 mg/dL [facility] CBC W Auto Differential pane l (Bld)Ordered By: Kelsi Amaro on 03-08-2024 Basophils (Bld) [#/Vol] 0 10*3/uL 0.0 - 0.2 10*3/uL [facility] Basophils/100 WBC (Bld) 0.5 % 0.0 - 2.0 % [facility] Eosinophils (Bld) [#/Vol] 0.2 10*3/uL 0.0 - 0.5 10*3/uL [facility] Eosinophils/100 WBC (Bld) 2.8 % 0.0 - 6.0 % [facility] Erythrocyte distribution width (RBC) [Ratio] 14.6 % 11.5 - 15.0 % [facility] Hematocrit (Bld) [Volume fraction] 36.8 % Low 40.0 - 52.0 % [facility] Hemoglobin (Bld) [Mass/Vol] 11.4 g/dL Low 13.0 - 18.0 g/dL [facility] [employer] Immature granulocytes (Bld) [#/Vol] 0 10*3/uL NINF - 0.1 10*3/uL [facility] [employer] Immature granulocytes/100 WBC (Bld) 0.3 % 0.0 - 2.0 % [facility] Interpretation and review of laboratory results Abnormal [facility] Lymphocytes (Bld) [#/Vol] 0.8 10*3/uL Low 1.0 - 4.3 10*3/uL [facility] Lymphocytes/100 WBC (Bld) 12.3 % Low 15.0 - 45.0 % [facility] MCH (RBC) [Entitic mass] 29.7 pg 26. 0 - 34.0 pg [facility] MCHC (RBC) [Mass/Vol] 31 % 30.5 - 36.0 % [facility] MCV (RBC) [Entitic vol] 95.8 fL 77.0 - 99.0 fL [facility] Monocytes (Bld) [#/Vol] 0.6 10*3/uL 0.0 - 0.9 10*3/uL [facility] Monocytes/100 WBC (Bld) 9.4 % 5.0 - 13.0 % [facility] Neutrophils (Bld) [#/Vol] 4.7 10*3/uL 1.8 - 7.5 10*3/uL [facility] Neutrophils/100 WBC (Bld) 74.7 % 38.0 - 82.0 % [facility] Nucleated RBC/100 WBC (Bld) [Ratio] 0 % [facility] Platelet mean volume (Bld) [Entitic vol] 10.2 fL 9.0 - 12.7 fL [facility] Platelets (Bld) [#/Vol] 248 10*3/uL 140 - 440 10*3/uL [facility] RBC (Bld) [#/Vol] 3.84 10*6/uL Low 4.40 - 5.9 0 10*6/uL [facility] WBC (Bld) [#/Vol] 6.4 10*3/uL 3.6 - 10.7 10*3/uL [facility] CBC WITH AUTO DIFFERENTIALon 03-08-2024 Basophils (Bld) [#/Vol] 0.0 10*3/uL Normal 0.0-0.2 [facility] Comment on above: Performed By: #### L [id number] ####Wall Steamer: SWATI RATLIFF ([id number])[facility])[address] [place] [address] Basophils/100 WBC (Bld) 0.5 % Normal 0.0-2.0 [facility] Comment on above: Performed By: #### L [id number] ####Wall Steamer: SWATI RATLIFF ([id number])[facility])[address] [place] [address] Eosinophils (Bld) [#/Vol] 0.2 10*3/uL Normal 0.0-0.5 [facility] Comment on above: Performed By: #### L [id number] ####Wall Steamer: SWATI RATLIFF ([id number])[facility])[address] [place] [address] Eosinophils/100 WBC (Bld) 2.8 % Normal 0.0-6.0 [facility] Comment on above: Performed By: #### L [id number] ####Wall Steamer: SWATI RATLIFF ([id number])[facility])[address] [place] [address] Erythrocyte distribution width (RBC) [Ratio] 14.6 % Normal 11.5-15.0 [facility] Comment on above: Performed By: #### L [id number] ####Wall Steamer: SWATI RATLIFF ([id number])[address] Hematocrit (Bld) [Volume fraction] 36.8 % Low 40.0-52.0 [facility] Comment on above: Performed By: #### L [id number] ####Wall Steamer: SWATI RATLIFF ([id number])[address] Hemoglobin (Bld) [Mass/Vol] 11.4 g/dL Low 13.0-18.0 [facility] Comment on above: Performed By: #### L [id number] ####Wall Steamer: SWATI RATLIFF ([id number])[facility])[address] [place] [address] IMMATURE GRANS % 0.3 % Normal 0.0-2.0 [facility] Comment on above: Performed By: #### L [id number] ####Wall Steamer: SWATI RATLIFF ([id number])[address] IMMATURE GRANS ABSOLUTE 0.0 10*3/uL Normal <0.1 [facility] Comment on above: Performed By: #### L [id number] ####Wall Steamer: SWATI RATLIFF ([id number])[facility] [place] [address] Lymphocytes (Bld) [#/Vol] 0.8 10*3/uL Low 1.0-4.3 [facility] Comment on above: Performed By: #### L [id number] ####Wall Steamer: SWATI RATLIFF ([id number])[facility])[address] [place] [address] Lymphocytes/100 WBC (Bld) 12.3 % Low 15.0-45.0 [facility] Comment on above: Performed By: #### L [id number] ####Wall Steamer: SWATI RATLIFF ([id number])[facility])[address] [place] [address] MCH (RBC) [Entitic mass] 29.7 pg Normal 26.0-34.0 [facility] Comment on above: Performed By: #### L [id number] ####Wall Steamer: SWATI RATLIFF ([id number])[facility])[address] [place] [address] MCHC 31.0 % Normal 30.5-36.0 [facility] Comment on above: Performed By: #### L [id number] ####Wall Steamer: SWATI RATLIFF ([id number])[facility])[address] [place] [address] MCV (RBC) [Entitic vol] 95.8 fL Normal 77.0-99.0 [facility] Comment on above: Performed By: #### L [id number] ####Wall Steamer: SWATI RATLIFF ([id number])[facility])[address] [place] [address] Monocytes (Bld) [#/Vol] 0.6 10*3/uL Normal 0.0-0.9 [facility] Comment on above: Performed By: #### L [id number] ####Wall Steamer: SWATI RATLIFF ([id number])[facility])[address] [place] [address] Monocytes/100 WBC (Bld) 9.4 % Normal 5.0-13.0 [facility] Comment on above: Performed By: #### L [id number] ####Wall Steamer: SWATI RATLIFF ([id number])[facility] ([facility])[address] [place] [address] NEUTROPHILS ABSOLUTE 4.7 10*3/uL Normal 1.8-7.5 [facility] Comment on above: Performed By: #### L [id number] ####Wall Steamer: SWATI RATLIFF ([id number])[facility] ([facility])[address] [place] [address] Neutrophils/100 WBC (Bld) 74.7 % Normal 38.0-82.0 [facility] Comment on above: Performed By: #### L [id number] ####Wall Steamer: SWATI RATLIFF ([id number])[facility] ([facility])[address] [place] [address] NRBC 0.0 /100 WBCs Normal 0.0-2.0 [facility] Comment on above: Performed By: #### L [id number] ####Wall Steamer: SWATI RATLIFF ([id number])[facility] ([facility])[address] [place] [address] Platelet mean volume (Bld) [Entitic vol] 10.2 fL Normal 9.0-12.7 [facility] Comment on above: Performed By: #### L [id number] ####Wall Steamer: SWATI RATLIFF ([id number])[facility] ([facility])[address] [place] [address] Platelets (Bld) [#/Vol] 248 10*3/uL Normal 140-440 [facility] Comment on above: Performed By: #### L [id number] ####Wall Steamer: SWATI RATLIFF ([id number])[facility] ([facility])[address] [place] [address] RBC (Bld) [#/Vol] 3.84 10*6/uL Low 4.40-5.90 [facility] Comment on above: Performed By: #### L [id number] ####Wall Steamer: SWATI RATLIFF ([id number])[facility] ([facility])[address] [place] [address] WBC (Bld) [#/Vol] 6.4 10*3/uL Normal 3.6-10.7 [facility] Comment on above: Performed By: #### L [id number] ####Wall Steamer: SWATI RATLIFF ([id number])[facility] ([facility])[address] [place] [address] Laboratory - Chemistry and C hemistry - challengeon 03-08-2024 Magnesium [Mass/Vol] 2.1 mg/dL 1.6 - 2 .3 mg/dL [facility] MAGNESIUMon 03-08-2024 Magnesium [Mass/Vol] 2.1 mg/dL Normal 1.6-2.3 [facility] Comment on above: Performed By: #### L [id number], LAB15 ####Wall Steamer: SWATI RATLIFF ([id number])[facility] ([facility])[address] [place] [address] Magnesium [Mass/Vol]on 03-08 Interpretation and review of laboratory results Normal [facility] No Panel Informationon 03-08 [facility] Office Visiton 03-08-2024 Follow-up visit [id number] Bethanie Reyes 1955 Date Provider Department Center 03/08/2024 [id number] ALEGRIA [facility] [address] Family History Problem Relation Age of Onset Heart attack Mother 61.00 Heart disease Father Other Brother Comments: accident Coronary artery disease Father Diabetes Father Family Status - Relation Status Age at Mother Father Brother Brother Alive Brother Alive Level of Service:23075 [place] OFFICE/OUTPATIENT ESTABLISHED MOD MDM 30 MIN Reason for Visit and Comments: 6 Month Follow-up [671] Normal [facility] Progress Noteon 03-08-2024 Progress Note [facility] - [place] [address] [facility] [address] Dept: [phone] Dept Visit type: Established : 1955 Reason for Visit: 6 Month Follow-up Assessment and Plan Coronary artery disease involving coronary bypass graft of [place] heart with chest pain. Bypass surgery in [...] and 1 packet in the evening. Take wit (more content not included)... Normal [facility] CBC W Auto Differential pane l (Bld)on 12-05-2023 Basophils (Bld) [#/Vol] 0.0 10*3/uL 0.0 - 0.2 10*3/uL [facility] Basophils/100 WBC (Bld) 0.7 % 0.0 - 2.0 % [facility] Eosinophils (Bld) [#/Vol] 0.2 10*3/uL 0.0 - 0.5 10*3/uL [facility] Eosinophils/100 WBC (Bld) 4.3 % 0.0 - 6.0 % [facility] Erythrocyte distribution width (RBC) [Ratio] 15.3 % High 11.5 - 15.0 % [facility] Hematocrit (Bld) [Volume fraction] 33.6 % Low 40.0 - 52.0 % [facility] Hemoglobin (Bld) [Mass/Vol] 10.5 g/dL Low 13.0 - 18.0 g/dL [facility] Immature granulocytes (Bld) [#/Vol] 0.0 10*3/uL NINF - 0.1 10*3/uL [facility] Immature granulocytes/100 WBC (Bld) 0.2 % 0.0 - 2.0 % [facility] Interpretation and review of laboratory results Abnormal [facility] Lymphocytes (Bld) [#/Vol] 0.9 10*3/uL Low 1.0 - 4.3 10*3/uL [facility] Lymphocytes/100 WBC (Bld) 19.5 % 15.0 - 45.0 % [facility] MCH (RBC) [Entitic mass] 30.1 pg 26. 0 - 34.0 pg [facility] MCHC (RBC) [Mass/Vol] 31.3 % 30.5 - 36.0 % [facility] MCV (RBC) [Entitic vol] 96.3 fL 77.0 - 99.0 fL [facility] Monocytes (Bld) [#/Vol] 0.5 10*3/uL 0.0 - 0.9 10*3/uL [facility] Monocytes/100 WBC (Bld) 12.1 % 5.0 - 13.0 % [facility] Neutrophils (Bld) [#/Vol] 2.8 10*3/uL 1.8 - 7.5 10*3/uL [facility] Neutrophils/100 WBC (Bld) 63.2 % 38.0 - 82.0 % [facility] Nucleated RBC/100 WBC (Bld) [Ratio] 0.0 % [facility] Platelet mean volume (Bld) [Entitic vol] 10.4 fL 9.0 - 12.7 fL [facility] Platelets (Bld) [#/Vol] 161 10*3/uL 140 - 440 10*3/uL [facility] RBC (Bld) [#/Vol] 3.49 10*6/uL Low 4.40 - 5.9 0 10*6/uL [facility] WBC (Bld) [#/Vol] 4.5 10*3/uL 3.6 - 10.7 10*3/uL [facility] Comprehensive metabolic 1998 panelon 12-05-2023 Albumin [Mass/Vol] 3.0 g/dL Low 3.5 - 5.0 g/dL [facility] ALP [Catalytic activity/Vol] 73 U/L 38 - 126 U/L [facility] ALT [Catalytic activity/Vol] 11 U/L 0 - 49 U/L [facility] Anion gap [Moles/Vol] 6 mmol/L 3 - 13 mmol/L [facility] AST [Catalytic activity/Vol] 14 U/L Low 15 - 46 U/L [facility] Bilirubin [Mass/Vol] 0.3 mg/dL 0.2 - 1 .3 mg/dL [facility] Calcium [Mass/Vol] 8.6 mg/dL 8.4 - 10. 4 mg/dL [facility] Chloride [Moles/Vol] 112 mmol/L High 98 - 10 7 mmol/L [facility] CO2 [Moles/Vol] 20 mmol/L Low 22 - 30 mmol/L [facility] Creatinine [Mass/Vol] 0.86 mg/dL 0.66 - 1.25 mg/dL [facility] GFR/1.73 sq M.predicted (S/P/Bld) [Vol rate/Area] - PINF [facility] Comment on above: Calculation based on the Chronic Kidney Disease Epidemiology Collaboration (CKD-EPI) equation refit without adjustment for race Glucose [Mass/Vol] 154 mg/dL High 70 - 100 mg/dL [facility] Interpretation and review of laboratory results Abnormal [facility] Potassium [Moles/Vol] 4.1 mmol/L 3.5 - 5.1 mmol/L [facility] Protein [Mass/Vol] 5.4 g/dL Low 6.3 - 8.2 g/dL [facility] Sodium [Moles/Vol] 138 mmol/L 135 - 145 mmol/L [facility] Urea nitrogen [Mass/Vol] 16 mg/dL 9 - 20 mg/dL [facility] Laboratory - Chemistry and C hemistry - challengeon 12-05-2023 Glucose [Mass/Vol] 241 mg/dL High 70 - 100 mg/dL [facility] Glucose [Mass/Vol] 93 mg/dL 70 - 100 mg/dL [facility] No Panel Informationon 12-04 Interpretation and review of laboratory results Abnormal [facility] Performed by: [facility], [address] [place] [address] CLIA ID: [id number] [facility] Interpretation and review of laboratory results Normal [facility] Performed by: [facility], [address] [place] [address] CLIA ID: [id number] [facility] CBC W Auto Differential pane l (Bld)Ordered By: Edie Askew on 12-04-2023 Basophils (Bld) [#/Vol] 0.0 10*3/uL 0.0 - 0.2 10*3/uL [facility] Basophils/100 WBC (Bld) 0.5 % 0.0 - 2.0 % [facility] Eosinophils (Bld) [#/Vol] 0.2 10*3/uL 0.0 - 0.5 10*3/uL [facility] Eosinophils/100 WBC (Bld) 4.7 % 0.0 - 6.0 % [facility] Erythrocyte distribution width (RBC) [Ratio] 15.5 % High 11.5 - 15.0 % [facility] Hematocrit (Bld) [Volume fraction] 33.3 % Low 40.0 - 52.0 % [facility] Hemoglobin (Bld) [Mass/Vol] 10.2 g/dL Low 13.0 - 18.0 g/dL [facility] [employer] Immature granulocytes (Bld) [#/Vol] 0.0 10*3/uL NINF - 0.1 10*3/uL [facility] [employer] Immature granulocytes/100 WBC (Bld) 0.0 % 0.0 - 2.0 % [facility] Interpretation and review of laboratory results Abnormal [facility] [employer] Lymphocytes (Bld) [#/Vol] 0.8 10*3/uL Low 1.0 - 4.3 10*3/uL [facility] [employer] Lymphocytes/100 WBC (Bld) 20.6 % 15.0 - 45.0 % [facility] MCH (RBC) [Entitic mass] 29.7 pg 26. 0 - 34.0 pg [facility] [employer] MCHC (RBC) [Mass/Vol] 30.6 % 30.5 - 36.0 % [facility] MCV (RBC) [Entitic vol] 97.1 fL 77.0 - 99.0 fL [facility] [employer] Monocytes (Bld) [#/Vol] 0.5 10*3/uL 0.0 - 0.9 10*3/uL [facility] Monocytes/100 WBC (Bld) 11.8 % 5.0 - 13.0 % [facility] Neutrophils (Bld) [#/Vol] 2.5 10*3/uL 1.8 - 7.5 10*3/uL [facility] Neutrophils/100 WBC (Bld) 62.4 % 38.0 - 82.0 % [facility] Nucleated RBC/100 WBC (Bld) [Ratio] 0.0 % [facility] [employer] Platelet mean volume (Bld) [Entitic vol] 10.7 fL 9.0 - 12.7 fL [facility] [employer] Platelets (Bld) [#/Vol] 167 10*3/uL 140 - 440 10*3/uL [facility] RBC (Bld) [#/Vol] 3.43 10*6/uL Low 4.40 - 5.9 0 10*6/uL [facility] [employer] WBC (Bld) [#/Vol] 4.1 10*3/uL 3.6 - 10.7 10*3/uL [facility] Comprehensive metabolic 1998 panelon 12-04-2023 Albumin [Mass/Vol] 3.0 g/dL Low 3.5 - 5.0 g/dL [facility] ALP [Catalytic activity/Vol] 70 U/L 38 - 126 U/L [facility] ALT [Catalytic activity/Vol] 11 U/L 0 - 49 U/L [facility] Anion gap [Moles/Vol] 5 mmol/L 3 - 13 mmol/L [facility] AST [Catalytic activity/Vol] 14 U/L Low 15 - 46 U/L [facility] Bilirubin [Mass/Vol] 0.4 mg/dL 0.2 - 1 .3 mg/dL [facility] Calcium [Mass/Vol] 8.6 mg/dL 8.4 - 10. 4 mg/dL [facility] Chloride [Moles/Vol] 114 mmol/L High 98 - 10 7 mmol/L [facility] CO2 [Moles/Vol] 19 mmol/L Low 22 - 30 mmol/L [facility] Creatinine [Mass/Vol] 0.93 mg/dL 0.66 - 1.25 mg/dL [facility] GFR/1.73 sq M.predicted (S/P/Bld) [Vol rate/Area] 90.0 mL/min - PINF [facility] Comment on above: Calculation based on the Chronic Kidney Disease Epidemiology Collaboration (CKD-EPI) equation refit without adjustment for race Glucose [Mass/Vol] 90 mg/dL 70 - 100 mg/dL [facility] Interpretation and review of laboratory results Abnormal [facility] Potassium [Moles/Vol] 4.2 mmol/L 3.5 - 5.1 mmol/L [facility] Protein [Mass/Vol] 5.4 g/dL Low 6.3 - 8.2 g/dL [facility] Sodium [Moles/Vol] 138 mmol/L 135 - 145 mmol/L [facility] Urea nitrogen [Mass/Vol] 18 mg/dL 9 - 20 mg/dL [facility] Laboratory - Chemistry and C hemistry - challengeon 12-04-2023 Glucose [Mass/Vol] 190 mg/dL High 70 - 100 mg/dL [facility] Glucose [Mass/Vol] 142 mg/dL High 70 - 100 mg/dL [facility] Glucose [Mass/Vol] 113 mg/dL High 70 - 100 mg/dL [facility] Glucose [Mass/Vol] 118 mg/dL High 70 - 100 mg/dL [facility] Glucose [Mass/Vol] 107 mg/dL High 70 - 100 mg/dL [facility] No Panel Informationon 12-03 Interpretation and review of laboratory results Abnormal [facility] Performed by: [facility], [address] [place] [address], [facility] [address] CLIA ID: [id number] [facility] Interpretation and review of laboratory results Abnormal [facility] Performed by: [facility], [address] [place] [address], [facility] [address] CLIA ID: [id number] [facility] Interpretation and review of laboratory results Abnormal [facility] Performed by: [facility], [address] [place] [address], [facility] [address] CLIA ID: [id number] [facility] Interpretation and review of laboratory results Abnormal [facility] Performed by: [facility], [address] [place] [address], [facility] [address] CLIA ID: [id number] [facility] Interpretation and review of laboratory results Abnormal [facility] Performed by: [facility], [address] [place] [address], [facility] [address] CLIA ID: [id number] [facility] Urinalysis complete panel (U )Ordered By: Arnaldo David on 12-04-2023 Bacteria LM.HPF (Urine sed) [#/Area] Loaded Abnormal Negative /HPF [facility] Bilirubin Ql (U) Negative Negative mg/dL [facility] Clarity (U) Turbid Abnormal Clear [facility] Color (U) Yellow Lt. Yellow [facility] Epithelial cells.squamous LM.HPF (Urine sed) [#/Area] 0-2 [facility] h Glucose Ql (U) 100 mg/dL Abnormal Normal (<70) [facility] Hemoglobin Ql (U) 0.06 mg/dL [facility] Hyaline casts Auto (Urine sed) [#/Area] Negative Negative /LPF [facility] Interpretation and review of laboratory results Abnormal [facility] Ketones (U) [Mass/Vol] Negative Negat abdulkadir mg/dL [facility] Leukocyte clumps LM.HPF (Urine sed) [#/Area] Many Abnormal Negative /HPF [facility] Leukocyte esterase Test strip Ql (U) 500 Abnormal Negative Poornima/uL [facility] Mucus LM.HPF (Urine sed) [#/Area] Few Negative /LPF [facility] Nitrite Ql (U) Positive Abnormal Negative [facility] pH (U) 8.0 [pH] 5.0 - 8.0 pH [facility] Protein (U) [Mass/Vol] 30 mg/dL Abnormal Negative [facility] RBC LM.HPF (Urine sed) [#/Area] 11-25 Abnormal [facility] Specific gravity (U) [Rel density] 1.012 1.005 - 1.030 [facility] Triple phosphate crystals LM.HPF (Urine sed) [#/Area] Many Abnormal Negative /HPF [facility] Urobilinogen (U) [Mass/Vol] Normal Normal (0-1) mg/dL [facility] WBC LM.HPF (Urine sed) [#/Area] /[HPF] Abnormal [facility] Confirmed by Light Microscopy [facility] CBC W Auto Differential pane l (Bld)on 12-03-2023 Basophils (Bld) [#/Vol] 0.0 10*3/uL 0.0 - 0.2 10*3/uL [facility] Basophils/100 WBC (Bld) 0.5 % 0.0 - 2.0 % [facility] Eosinophils (Bld) [#/Vol] 0.2 10*3/uL 0.0 - 0.5 10*3/uL [facility] Eosinophils/100 WBC (Bld) 4.5 % 0.0 - 6.0 % [facility] Erythrocyte distribution width (RBC) [Ratio] 15.4 % High 11.5 - 15.0 % [facility] Hematocrit (Bld) [Volume fraction] 32.5 % Low 40.0 - 52.0 % [facility] Hemoglobin (Bld) [Mass/Vol] 10.2 g/dL Low 13.0 - 18.0 g/dL [facility] Immature granulocytes (Bld) [#/Vol] 0.0 10*3/uL NINF - 0.1 10*3/uL [facility] Immature granulocytes/100 WBC (Bld) 0.2 % 0.0 - 2.0 % [facility] Interpretation and review of laboratory results Abnormal [facility] Lymphocytes (Bld) [#/Vol] 0.9 10*3/uL Low 1.0 - 4.3 10*3/uL [facility] Lymphocytes/100 WBC (Bld) 20.9 % 15.0 - 45.0 % [facility] MCH (RBC) [Entitic mass] 30.4 pg 26. 0 - 34.0 pg [facility] MCHC (RBC) [Mass/Vol] 31.4 % 30.5 - 36.0 % [facility] MCV (RBC) [Entitic vol] 96.7 fL 77.0 - 99.0 fL [facility] Monocytes (Bld) [#/Vol] 0.5 10*3/uL 0.0 - 0.9 10*3/uL [facility] Monocytes/100 WBC (Bld) 10.9 % 5.0 - 13.0 % [facility] Neutrophils (Bld) [#/Vol] 2.7 10*3/uL 1.8 - 7.5 10*3/uL [facility] Neutrophils/100 WBC (Bld) 63.0 % 38.0 - 82.0 % [facility] Nucleated RBC/100 WBC (Bld) [Ratio] 0.0 % [facility] Platelet mean volume (Bld) [Entitic vol] 10.5 fL 9.0 - 12.7 fL [facility] Platelets (Bld) [#/Vol] 165 10*3/uL 140 - 440 10*3/uL [facility] RBC (Bld) [#/Vol] 3.36 10*6/uL Low 4.40 - 5.9 0 10*6/uL [facility] WBC (Bld) [#/Vol] 4.2 10*3/uL 3.6 - 10.7 10*3/uL [facility] Comprehensive metabolic 1998 panelon 12-03-2023 Albumin [Mass/Vol] 2.9 g/dL Low 3.5 - 5.0 g/dL [facility] ALP [Catalytic activity/Vol] 71 U/L 38 - 126 U/L [facility] ALT [Catalytic activity/Vol] 12 U/L 0 - 49 U/L [facility] Anion gap [Moles/Vol] 5 mmol/L 3 - 13 mmol/L [facility] AST [Catalytic activity/Vol] 13 U/L Low 15 - 46 U/L [facility] Bilirubin [Mass/Vol] 0.3 mg/dL 0.2 - 1 .3 mg/dL [facility] Calcium [Mass/Vol] 8.4 mg/dL 8.4 - 10. 4 mg/dL [facility] Chloride [Moles/Vol] 114 mmol/L High 98 - 10 7 mmol/L [facility] CO2 [Moles/Vol] 20 mmol/L Low 22 - 30 mmol/L [facility] Creatinine [Mass/Vol] 0.93 mg/dL 0.66 - 1.25 mg/dL [facility] GFR/1.73 sq M.predicted (S/P/Bld) [Vol rate/Area] 90.0 mL/min - PINF [facility] Comment on above: Calculation based on the Chronic Kidney Disease Epidemiology Collaboration (CKD-EPI) equation refit without adjustment for race Glucose [Mass/Vol] 134 mg/dL High 70 - 100 mg/dL [facility] Interpretation and review of laboratory results Abnormal [facility] Potassium [Moles/Vol] 3.9 mmol/L 3.5 - 5.1 mmol/L [facility] Protein [Mass/Vol] 5.3 g/dL Low 6.3 - 8.2 g/dL [facility] Sodium [Moles/Vol] 139 mmol/L 135 - 145 mmol/L [facility] Urea nitrogen [Mass/Vol] 19 mg/dL 9 - 20 mg/dL [facility] Laboratory - Chemistry and C hemistry - challengeon 12-03-2023 Glucose [Mass/Vol] 165 mg/dL High 70 - 100 mg/dL [facility] Glucose [Mass/Vol] 101 mg/dL High 70 - 100 mg/dL [facility] Glucose [Mass/Vol] 169 mg/dL High 70 - 100 mg/dL [facility] Glucose [Mass/Vol] 119 mg/dL High 70 - 100 mg/dL [facility] No Panel Informationon 12-02 Interpretation and review of laboratory results Abnormal [facility] Performed by: [facility] [employer] [facility], [address] [place] [address] CLIA ID: [id number] [facility] Interpretation and review of laboratory results Abnormal [facility] Performed by: [facility] [employer] [facility], [address] [place] [address] CLIA ID: [id number] [facility] Interpretation and review of laboratory results Abnormal [facility] Performed by: [facility], [address] [place] [address] CLIA ID: [id number] [facility] Interpretation and review of laboratory results Abnormal [facility] [employer] Performed by: [facility], [address] [place], [place] [id number] CLIA ID: [id number] [facility] [employer] 25-hydroxyvitamin D3 [Mass/V ol]on 12-02-2023 Interpretation and review of laboratory results Abnormal [facility] [employer] Therapy is based on measurement of Total 25-OHD with the following classification levels: Less than 20 ng/mL: Indicative of Vit D deficiency 20-30 ng/mL: Suggests Vit D insufficiency Optimal: Greater than or equal to 30 ng/mL Test performed by [facility] Competitive Immunoassay, measuring Total Vitamin D, not individual fractions. [facility] [employer] CBC W Auto Differential pane l (Bld)on 12-02-2023 Basophils (Bld) [#/Vol] 0.0 10*3/uL 0.0 - 0.2 10*3/uL [employer] Basophils/100 WBC (Bld) 0.7 % 0.0 - 2.0 % [facility] [employer] Eosinophils (Bld) [#/Vol] 0.2 10*3/uL 0.0 - 0.5 10*3/uL [employer] Eosinophils/100 WBC (Bld) 4.6 % 0.0 - 6.0 % [facility] [employer] Erythrocyte distribution width (RBC) [Ratio] 15.7 % High 11.5 - 15.0 % [employer] Hematocrit (Bld) [Volume fraction] 33.7 % Low 40.0 - 52.0 % [facility] [employer] Hemoglobin (Bld) [Mass/Vol] 10.5 g/dL Low 13.0 - 18.0 g/dL [facility] [employer] Immature granulocytes (Bld) [#/Vol] 0.0 10*3/uL NINF - 0.1 10*3/uL [facility] [employer] Immature granulocytes/100 WBC (Bld) 0.2 % 0.0 - 2.0 % [facility] [employer] Interpretation and review of laboratory results Abnormal [facility] [employer] Lymphocytes (Bld) [#/Vol] 0.8 10*3/uL Low 1.0 - 4.3 10*3/uL [facility] [employer] Lymphocytes/100 WBC (Bld) 18.0 % 15.0 - 45.0 % [facility] [employer] MCH (RBC) [Entitic mass] 30.3 pg 26. 0 - 34.0 pg [facility] MCHC (RBC) [Mass/Vol] 31.2 % 30.5 - 36.0 % [facility] MCV (RBC) [Entitic vol] 97.1 fL 77.0 - 99.0 fL [facility] Monocytes (Bld) [#/Vol] 0.5 10*3/uL 0.0 - 0.9 10*3/uL [facility] Monocytes/100 WBC (Bld) 11.4 % 5.0 - 13.0 % [facility] Neutrophils (Bld) [#/Vol] 3.0 10*3/uL 1.8 - 7.5 10*3/uL [facility] Neutrophils/100 WBC (Bld) 65.1 % 38.0 - 82.0 % [facility] Nucleated RBC/100 WBC (Bld) [Ratio] 0.0 % [facility] Platelet mean volume (Bld) [Entitic vol] 10.7 fL 9.0 - 12.7 fL [facility] Platelets (Bld) [#/Vol] 171 10*3/uL 140 - 440 10*3/uL [facility] RBC (Bld) [#/Vol] 3.47 10*6/uL Low 4.40 - 5.9 0 10*6/uL [facility] WBC (Bld) [#/Vol] 4.6 10*3/uL 3.6 - 10.7 10*3/uL [facility] Comprehensive metabolic 1998 panelon 12-02-2023 Albumin [Mass/Vol] 3.1 g/dL Low 3.5 - 5.0 g/dL [facility] ALP [Catalytic activity/Vol] 82 U/L 38 - 126 U/L [facility] ALT [Catalytic activity/Vol] 14 U/L 0 - 49 U/L [facility] Anion gap [Moles/Vol] 5 mmol/L 3 - 13 mmol/L [facility] AST [Catalytic activity/Vol] 16 U/L 15 - 46 U/L [facility] Bilirubin [Mass/Vol] 0.3 mg/dL 0.2 - 1 .3 mg/dL [facility] Calcium [Mass/Vol] 8.5 mg/dL 8.4 - 10. 4 mg/dL [facility] Chloride [Moles/Vol] 113 mmol/L High 98 - 10 7 mmol/L [facility] CO2 [Moles/Vol] 18 mmol/L Low 22 - 30 mmol/L [facility] Creatinine [Mass/Vol] 1.00 mg/dL 0.66 - 1.25 mg/dL [facility] GFR/1.73 sq M.predicted (S/P/Bld) [Vol rate/Area] 82.5 mL/min - PINF [facility] Comment on above: Calculation based on the Chronic Kidney Disease Epidemiology Collaboration (CKD-EPI) equation refit without adjustment for race Glucose [Mass/Vol] 216 mg/dL High 70 - 100 mg/dL [facility] Interpretation and review of laboratory results Abnormal [facility] Potassium [Moles/Vol] 4.1 mmol/L 3.5 - 5.1 mmol/L [facility] Protein [Mass/Vol] 5.5 g/dL Low 6.3 - 8.2 g/dL [facility] Sodium [Moles/Vol] 137 mmol/L 135 - 145 mmol/L [facility] Urea nitrogen [Mass/Vol] 23 mg/dL High 9 - 20 mg/dL [facility] - Chemistry and C hemistry - challengeon 12-02-2023 Glucose [Mass/Vol] 259 mg/dL High 70 - 100 mg/dL [facility] Glucose [Mass/Vol] 142 mg/dL High 70 - 100 mg/dL [facility] Comment on above: Caregiver Notified; Glucose [Mass/Vol] 207 mg/dL High 70 - 100 mg/dL [facility] Comment on above: Caregiver Notified; 25-hydroxyvitamin D3 [Mass/Vol] 24 ng/mL Low 30 - 100 ng/mL [facility] Glucose [Mass/Vol] 156 mg/dL High 70 - 100 mg/dL [facility] Comment on above: Caregiver Notified; Troponin I.cardiac [Mass/Vol] ng/mL NINF - 0.034 ng/mL [facility] No Panel Informationon 12-01 Interpretation and review of laboratory results Abnormal [facility] Performed by: [facility], [address] [place] [address] CLIA ID: [id number] [facility] Interpretation and review of laboratory results Abnormal [facility], [address] [place] [id number] CLIA ID: [id number] [facility] Interpretation and review of laboratory results Abnormal [facility] Performed by: [facility], [address] [facility] [address] CLIA ID: [id number] [facility] Interpretation and review of laboratory results Abnormal [facility] Performed by: [facility], [address] [facility] [address] CLIA ID: [id number] [facility] Troponin I.cardiac [Mass/Vol ]on 12-02-2023 Interpretation and review of laboratory results Normal [facility] Patients with high levels of Biotin oral intake (ie >5 mg/day) may have falsely decreased Troponin levels. [facility] CBC W Auto Differential pane l (Bld)Ordered By: Nash George on 12-01-2023 Basophils (Bld) [#/Vol] 0.0 10*3/uL 0.0 - 0.2 10*3/uL [facility] Basophils/100 WBC (Bld) 0.5 % 0.0 - 2.0 % [facility] Eosinophils (Bld) [#/Vol] 0.2 10*3/uL 0.0 - 0.5 10*3/uL [facility] Eosinophils/100 WBC (Bld) 5.1 % 0.0 - 6.0 % [facility] Erythrocyte distribution width (RBC) [Ratio] 15.7 % High 11.5 - 15.0 % [facility] Hematocrit (Bld) [Volume fraction] 33.3 % Low 40.0 - 52.0 % [facility] Hemoglobin (Bld) [Mass/Vol] 10.4 g/dL Low 13.0 - 18.0 g/dL [facility] Immature granulocytes (Bld) [#/Vol] 0.0 10*3/uL NINF - 0.1 10*3/uL [facility] Immature granulocytes/100 WBC (Bld) 0.2 % 0.0 - 2.0 % [facility] Interpretation and review of laboratory results Abnormal [facility] Lymphocytes (Bld) [#/Vol] 0.9 10*3/uL Low 1.0 - 4.3 10*3/uL [facility] Lymphocytes/100 WBC (Bld) 21.8 % 15.0 - 45.0 % [facility] MCH (RBC) [Entitic mass] 29.9 pg 26. 0 - 34.0 pg [facility] MCHC (RBC) [Mass/Vol] 31.2 % 30.5 - 36.0 % [facility] MCV (RBC) [Entitic vol] 95.7 fL 77.0 - 99.0 fL [facility] Monocytes (Bld) [#/Vol] 0.5 10*3/uL 0.0 - 0.9 10*3/uL [facility] Monocytes/100 WBC (Bld) 11.3 % 5.0 - 13.0 % [facility] Neutrophils (Bld) [#/Vol] 2.6 10*3/uL 1.8 - 7.5 10*3/uL [facility] Neutrophils/100 WBC (Bld) 61.1 % 38.0 - 82.0 % [facility] Nucleated RBC/100 WBC (Bld) [Ratio] 0.0 % [facility] Platelet mean volume (Bld) [Entitic vol] 10.5 fL 9.0 - 12.7 fL [facility] Platelets (Bld) [#/Vol] 173 10*3/uL 140 - 440 10*3/uL [facility] RBC (Bld) [#/Vol] 3.48 10*6/uL Low 4.40 - 5.9 0 10*6/uL [facility] WBC (Bld) [#/Vol] 4.3 10*3/uL 3.6 - 10.7 10*3/uL [facility] Comprehensive metabolic 1998 panelon 12-01-2023 Albumin [Mass/Vol] 3.2 g/dL Low 3.5 - 5.0 g/dL [facility] ALP [Catalytic activity/Vol] 80 U/L 38 - 126 U/L [facility] ALT [Catalytic activity/Vol] 15 U/L 0 - 49 U/L [facility] Anion gap [Moles/Vol] 5 mmol/L 3 - 13 mmol/L [facility] AST [Catalytic activity/Vol] 20 U/L 15 - 46 U/L [facility] Bilirubin [Mass/Vol] 0.5 mg/dL 0.2 - 1 .3 mg/dL [facility] Calcium [Mass/Vol] 8.6 mg/dL 8.4 - 10. 4 mg/dL [facility] Chloride [Moles/Vol] 114 mmol/L High 98 - 10 7 mmol/L [facility] CO2 [Moles/Vol] 19 mmol/L Low 22 - 30 mmol/L [facility] Creatinine [Mass/Vol] 1.08 mg/dL 0.66 - 1.25 mg/dL [facility] GFR/1.73 sq M.predicted (S/P/Bld) [Vol rate/Area] 75.2 mL/min - PINF [facility] Comment on above: Calculation based on the Chronic Kidney Disease Epidemiology Collaboration (CKD-EPI) equation refit without adjustment for race Glucose [Mass/Vol] 137 mg/dL High 70 - 100 mg/dL [facility] Interpretation and review of laboratory results Abnormal [facility] Potassium [Moles/Vol] 4.1 mmol/L 3.5 - 5.1 mmol/L [facility] Protein [Mass/Vol] 5.6 g/dL Low 6.3 - 8.2 g/dL [facility] Sodium [Moles/Vol] 138 mmol/L 135 - 145 mmol/L [facility] Urea nitrogen [Mass/Vol] 25 mg/dL High 9 - 20 mg/dL [facility] Laboratory - Chemistry and C hemistry - challengeon 12-01-2023 Glucose [Mass/Vol] 276 mg/dL High 70 - 100 mg/dL [facility] Glucose [Mass/Vol] 74 mg/dL 70 - 100 mg/dL [facility] Glucose [Mass/Vol] 156 mg/dL High 70 - 100 mg/dL [facility] Glucose [Mass/Vol] 124 mg/dL High 70 - 100 mg/dL [facility] MR Brain WO and W contrast Tracie Cole 12-01-2023 [facility] 1955 [id number] Exam Date/Time: 12/01/2023 12:30 Procedure: MR BRAIN [...] sinuses. Mastoid air cells: Normal. Orbits: Normal. [facility] Amadeo Luciano MD - 12/01/2023 [...] arteries: There is origin of the right [employer]. Otherwise, unremarkable. Anterior communicating artery: Unremarkable. Posterior communicating arteries: Robustness of the right posterior communicating artery is present, in keeping with origin of the right [employer]. Otherwise, unremarkable. Aneurysm or vascular malformation: None [...] Electronically Signed Date/Time: 12/01/2023 1:27 PM EDT [facility] MRA Head vessels WO contrast on 12-01-2023 Patient Name: [facility] 1955 [id number] Exam Date/Time: 12/01/2023 12:30 Procedure: MR HEAD [...] sinuses. Mastoid air cells: Normal. Orbits: Normal. [facility] Amadeo Luciano MD - 12/01/2023 Patient Name: JAMES REYES : 1955 [facility]#: [id number] Exam Date/Time: 12/01/2023 12:30 Procedure: MR HEAD [...] arteries: There is origin of the right [employer]. Otherwise, unremarkable. Anterior communicating artery: Unremarkable. Posterior communicating arteries: Robustness of the right posterior communicating artery is present, in keeping with origin of the right [employer]PER[employer]. Otherwise, unremarkable. Aneurysm or vascular malformation: None [...] Electronically Signed Date/Time: 12/01/2023 1:27 PM EDT [employer] MRA Neck vessels WO and W co [...] sinuses. Mastoid air cells: Normal. Orbits: Normal. [facility] Amadeo Luciano MD - 12/01/2023 Patient Name: [facility] 1955 [id number] Exam Date/Time: 12/01/2023 12:30 Procedure: MR NECK [...] arteries: There is origin of the right [employer]PER[employer]. Otherwise, unremarkable. Anterior communicating artery: Unremarkable. Posterior communicating arteries: Robustness of the right posterior communicating artery is present, in keeping with origin of the right [employer]. Otherwise, unremarkable. Aneurysm or vascular malformation: None [...] Electronically Signed Date/Time: 12/01/2023 1:27 PM EDT [facility] No Panel Informationon 11-30 Interpretation and review of laboratory results Abnormal [facility] Performed by: [facility], [address] [place] [address] CLIA ID: [id number] [employer] Interpretation and review of laboratory results Normal [facility] Performed by: [facility], [address] [place] [id number] CLIA ID: [id number] [employer] 1. Diminished cerebr al volume and evidence [...] arteries: There is origin of the right [employer]PER[employer]. Otherwise, unremarkable. Anterior communicating artery: Unremarkable. Posterior communicating arteries: Robustness of the right posterior communicating artery is present, in keeping with origin of the right [employer]PER[employer]. Otherwise, unremarkable. Aneurysm or vascular malformation: None [...] Electronically Signed Date/Time: 12/01/2023 1:27 PM EDT [facility] Interpretation and review of laboratory results Abnormal [employer] Performed by: [employer] [facility], [address] [place] [address] CLIA ID: [id number] [employer] Radiology Study observation (narrative) [facility] Interpretation and review of laboratory results Abnormal [employer] Performed by: [employer] [facility], [address] [place] [address] CLIA ID: [id number] [facility] No Panel InformationOrdered By: Amadeo Luciano on 12-01-2023 [facility] Work Phone: CBC panel Auto (Bld)on 11-29 Erythrocyte distribution width (RBC) [Ratio] 15.6 % High 11.5 - 15.0 % [facility] Hematocrit (Bld) [Volume fraction] 34.5 % Low 40.0 - 52.0 % [facility] Hemoglobin (Bld) [Mass/Vol] 10.9 g/dL Low 13.0 - 18.0 g/dL [facility] Interpretation and review of laboratory results Abnormal [facility] MCH (RBC) [Entitic mass] 30.6 pg 26. 0 - 34.0 pg [facility] MCHC (RBC) [Mass/Vol] 31.6 % 30.5 - 36.0 % [facility] MCV (RBC) [Entitic vol] 96.9 fL 77.0 - 99.0 fL [facility] Platelet mean volume (Bld) [Entitic vol] 10.4 fL 9.0 - 12.7 fL [facility] Platelets (Bld) [#/Vol] 191 10*3/uL 140 - 440 10*3/uL [facility] RBC (Bld) [#/Vol] 3.56 10*6/uL Low 4.40 - 5.9 0 10*6/uL [facility] WBC (Bld) [#/Vol] 5.1 10*3/uL 3.6 - 10.7 10*3/uL [facility] Cobalamin (Vitamin B12) [Mas s/Vol]on 11-30-2023 Interpretation and review of laboratory results Abnormal [facility] Comprehensive metabolic 1998 panelon 11-30-2023 Albumin [Mass/Vol] 3.2 g/dL Low 3.5 - 5.0 g/dL [facility] ALP [Catalytic activity/Vol] 81 U/L 38 - 126 U/L [facility] ALT [Catalytic activity/Vol] 13 U/L 0 - 49 U/L [facility] Anion gap [Moles/Vol] 5 mmol/L 3 - 13 mmol/L [facility] AST [Catalytic activity/Vol] 19 U/L 15 - 46 U/L [facility] Bilirubin [Mass/Vol] 0.5 mg/dL 0.2 - 1 .3 mg/dL [facility] Calcium [Mass/Vol] 8.8 mg/dL 8.4 - 10. 4 mg/dL [facility] Chloride [Moles/Vol] 115 mmol/L High 98 - 10 7 mmol/L [facility] CO2 [Moles/Vol] 19 mmol/L Low 22 - 30 mmol/L [facility] Creatinine [Mass/Vol] 1.05 mg/dL 0.66 - 1.25 mg/dL [facility] GFR/1.73 sq M.predicted (S/P/Bld) [Vol rate/Area] 77.8 mL/min - PINF [facility] Comment on above: Calculation based on the Chronic Kidney Disease Epidemiology Collaboration (CKD-EPI) equation refit without adjustment for race Glucose [Mass/Vol] 121 mg/dL High 70 - 100 mg/dL [facility] Potassium [Moles/Vol] 3.9 mmol/L 3.5 - 5.1 mmol/L [facility] Protein [Mass/Vol] 5.7 g/dL Low 6.3 - 8.2 g/dL [facility] Sodium [Moles/Vol] 138 mmol/L 135 - 145 mmol/L [facility] Urea nitrogen [Mass/Vol] 27 mg/dL High 9 - 20 mg/dL [facility] Folate [Mass/Vol]on 11-30-19 Interpretation and review of laboratory results Normal [facility] Laboratory - Chemistry and C hemistry - challengeon 11-30-2023 Glucose [Mass/Vol] 200 mg/dL High 70 - 100 mg/dL [facility] Glucose [Mass/Vol] 139 mg/dL High 70 - 100 mg/dL [facility] Glucose [Mass/Vol] 124 mg/dL High 70 - 100 mg/dL [facility] Cobalamin (Vitamin B12) [Mass/Vol] 167 pg/mL Low 239 - 931 pg/mL [facility] Folate [Mass/Vol] 3.7 ng/mL 2.9 - PINF ng/mL [facility] TSH Qn 1.209 m[IU]/L [facility] Glucose [Mass/Vol] 139 mg/dL High 70 - 100 mg/dL [facility] Troponin I.cardiac [Mass/Vol] ng/mL [facility] - [facility] ng/mL [facility] Average glucose Estimated from glycated hemoglobin (Bld) [Mass/Vol] 197 mg/dL [facility] Troponin I.cardiac [Mass/Vol] ng/mL NINF - 0.034 ng/mL [facility] Laboratory - Hematology and Cell countson 11-30-2023 HbA1c (Bld) [Mass fraction] 8.5 % High NINF - 5.7 % [facility] Comment on above: Normal less than 5.7 % Prediabetes 5.7% to 6.4% Diabetes 6.5% or higher --HgbA1C levels may not be accurate in patients who have renal disease, received recent blood transfusions, are anemic, or who have dyshemoglobinemia. Lipid 1996 panelon Cholesterol [Mass/Vol] 108 mg/dL NINF - 200 mg/dL [facility] [employer] Cholesterol in HDL [Mass/Vol] 42 mg/dL 40 - 60 mg/dL [facility] Cholesterol in LDL [Mass/Vol] 33 mg/dL 0 - <100 [facility] Cholesterol.total/Choles terol in HDL [Mass ratio] 3 {ratio} [facility] [employer] Comment on above: Ref Range: < 3 Low Risk for CHD 3-6 Mod Risk for CHD > 6 High Risk for CHD Triglyceride [Mass/Vol] 166 mg/dL High NINF - 150 mg/dL [facility] [employer] No Panel Informationon 11-29 Interpretation and review of laboratory results Abnormal [facility] Performed by: [email or web address], [address] [place] [address] CLIA ID: [id number] [facility] [employer] [facility] Interpretation and review of laboratory results Abnormal [facility] Performed by: [facility] [employer] [facility], [address] [place] [id number] CLIA ID: [id number] [facility] Interpretation and review of laboratory results Abnormal [facility] Performed by: [facility] [employer] [facility], [address] [place] [id number] CLIA ID: [id number] [facility] [employer] [facility] Interpretation and review of laboratory results Abnormal [facility] Performed by: [facility] [employer] [facility], [address] [place] [address] CLIA ID: [id number] [facility] Interpretation and review of laboratory results Abnormal [facility] Interpretation and review of laboratory results Abnormal [facility] P Warren 13 degrees [facility] Health MO Interval 230 ms [facility] QRS Warren -44 degrees [facility] QRSD Interval 126 ms [facility] Interval 457 ms [facility] QTC Interval 439 ms [facility] T Wave Warren 122 degrees [facility] Sinus rhythm Prolonged MO interval Nonspecific IVCD with LAD Abnormal T, consider ischemia, lateral leads Compared to ECG 04/24/23 No significant change Electronically Signed On 11-30-2023 00:44:00 EDT by Sergio Recinos D O - 11/30/2023 IMPRESSION: Sinus rhythm Prolonged MO interval Nonspecific IVCD with LAD Abnormal T, consider ischemia, lateral leads Compared to ECG 04/24/23 No significant change Electronically Signed On 11-30-2023 00:44:00 EDT by Sergio Ruff [facility] TSH Qnon 11-30-2023 Interpretation and review of laboratory results Normal [facility] Troponin I.cardiac [Mass/Vol ]on 11-30-2023 Interpretation and review of laboratory results Normal [facility] Patients with high levels of Biotin oral intake (ie >5 mg/day) may have falsely decreased Troponin levels. [facility] Interpretation and review of laboratory results Normal [facility] Patients with high levels of Biotin oral intake (ie >5 mg/day) may have falsely decreased Troponin levels. [facility] US Heart TransthoracicOrdere d By: Lenroa Arzate on 11-30-2023 Ao Root Index 1.56 cm/m2 [facility] Work Phone: Aortic Root 3.9 cm [facility] Work Phone: Aortic Sinus Valsalva 3.9 cm [facility] Work Phone: Aortic Sinus Valsalva Index 1.56 cm/m2 [facility] Work Phone: Ascending Aorta 4.0 cm [facility] Work Phone: Ascending Aorta Index 1.60 cm/m2 [facility] Work Phone: AV Area by Peak Velocity 1.7 cm2 [facility] Work Phone: AV Area by VTI 1.6 cm2 [facility] Work Phone: AV Mean Gradient 7 mmHg [facility] Work Phone: AV Mean Velocity 1.2 m/s [facility] Work Phone: AV Peak Gradient 11 mmHg [facility] Work Phone: AV Peak Velocity 1.7 m/s [facility] Work Phone: AV Velocity Ratio 0.65 [facility] Work Phone: AV VTI 42.4 cm [facility] Work Phone: KEN/BSA Peak Velocity 0.7 cm2/m2 [facility] Work Phone: [phone] KEN/BSA VTI 0.6 cm2/m2 [facility] [employer] Work Phone: E/E' Lateral 5.75 [facility] [employer] Work Phone: [phone] E/E' Ratio (Averaged) 7.80 [facility] [employer] Work Phone: [phone] E/E' Septal 9.86 [facility] [employer] Work Phone: [phone] EF BP 70 % 55 - 100 % [facility] [employer] Work Phone: [phone] Fractional Shortening 2D 31 % 28 - 44 % [facility] [employer] Work [phone] Interpretation and review of laboratory results Abnormal [facility] [employer] Work Phone: IVC Diameter 1.4 cm [facility] [employer] Work Phone: [phone] IVSd 1.3 cm Abnormal 0.6 - 1.0 cm [facility] [employer] Phone: [phone] LA Diameter 5.2 cm [facility] [employer] Work Phone: [phone] LA Size Index 2.08 cm/m2 [facility] Work Phone: LA Volume 2C 90 mL Abnormal 18 - 58 mL [facility] [employer] Work Phone: [phone] LA Volume 4C 112 mL Abnormal 18 - 58 mL [facility] [employer] Work Phone: [phone] LA Volume A/L 107 mL [facility] [employer] Work Phone: [phone] LA Volume BP 100 mL Abnormal 18 - 58 mL [facility] [employer] Work Phone: [phone] LA Volume Index 2C 36 mL/m2 Abnormal 16 - 34 mL/m2 [facility] [employer] Work Phone: [phone] LA Volume Index 4C 45 mL/m2 Abnormal 16 - 34 mL/m2 [facility] Work Phone: LA Volume Index A/L 43 mL/m2 16 - 34 mL/m2 [facility] Work Phone: LA Volume Index BP 40 ml/m2 Abnormal 16 - 34 ml/m2 [facility] Work Phone: LA/AO Root Ratio 1.33 [facility] Work Phone: LV E' Lateral Velocity 12 cm/s [facility] Work Phone: LV E' Septal Velocity 7 cm/s [facility] Work Phone: LV EDV A2C 184 mL [facility] Work Phone: LV EDV A4C 155 mL [facility] Work Phone: LV EDV BP 173 mL Abnormal 67 - 155 mL [facility] Work Phone: LV EDV Index A2C 74 mL/m2 [facility] Work Phone: LV EDV Index A4C 62 mL/m2 [facility] Work Phone: LV EDV Index BP 69 mL/m2 [facility] Work Phone: LV Ejection Fraction A2C 68 % [facility] Work Phone: LV Ejection Fraction A4C 71 % [facility] Work Phone: LV ESV A2C 58 mL [facility] Work Phone: LV ESV A4C 46 mL [facility] Work Phone: LV ESV BP 53 mL 22 - 58 mL [facility] Work Phone: LV ESV Index A2C 23 mL/m2 [facility] Work Phone: LV ESV Index A4C 18 mL/m2 [facility] Work Phone: LV ESV Index BP 21 mL/m2 [facility] Work Phone: LV Mass 2D 340.7 g Abnormal 88 - 224 g [facility] Work Phone: LV Mass 2D Index 136.3 g/m2 Abnormal 49 - 115 g/m2 [facility] Work Phone: LV RWT Ratio 0.44 [facility] Work Phone: LVIDd 5.9 cm 4.2 - 5.9 cm [facility] Work Phone: LVIDd Index 2.36 cm/m2 [facility] Work Phone: LVIDs 4.1 cm [facility] Work Phone: LVIDs Index 1.64 cm/m2 [facility] Work Phone: LVOT Area 2.5 cm2 [facility] Work Phone: LVOT Cardiac Output 4.3 liter/mi nut e [facility] Work Phone: [phone] LVOT Diameter 1.8 cm [facility] [employer] Work Phone: LVOT Mean Gradient 3 mmHg [facility] Work Phone: LVOT Peak Gradient 5 mmHg [facility] Work Phone: LVOT Peak Velocity 1.1 m/s [facility] Work Phone: [phone] LVOT Stroke Volume Index 27.7 mL/m2 [employer] Phone: LVOT SV 69.2 ml [facility] Work Phone: LVOT VTI 27.2 cm [facility] Work Phone: [phone] LVOT:AV VTI Index 0.64 [facility] [employer] Work Phone: LVPWd 1.3 cm Abnormal 0.6 - 1.0 cm [facility] [employer] Work Phone: MV A Velocity 0.89 m/s [facility] Work Phone: MV E Velocity 0.69 m/s [facility] Work Phone: MV E Wave Deceleration Time 263.4 ms [facility] Work Phone: MV E/A 0.78 [facility] Work Phone: RA Area 4C 78.6 mL [facility] [employer] Work Phone: [phone] Free Wall Peak S' 12 cm/s [facility] [employer] Work Phone: [phone] Sinotubular Junction 3.0 cm [facility] [employer] Work Phone: [phone] 2.0 cm 1.7 cm [facility] [employer] Work Phone: [phone] [facility] [employer] Work Phone: [phone] US Heart Transthoracicon Left Ventricle: Left ventricle [...] Conclusions No significant valvular abnormalities. CV CPACS Vital signson 11-30-2023 Heart rate 55 /min bpm [facility] XR Abdomen Single viewon Nonobstructive bowel gas pattern. No metallic foreign body is identified within the visualized portion of the abdomen and pelvis. Report Dictated on Electronically Signed By: Melvin Scott MD Electronically Signed Date/Time: 11/30/2023 2:50 PM EDT [facility] Patient Name: JAMES REYES : 1955 [...] are degenerative changes of the lumbar spine. [facility] Melvin Scott MD - 11/30/2023 Patient [...] 11/30/2023 2:50 PM EDT [facility] Radiology Study observation (narrative) Nicole [facility] XR Abdomen Single viewOrdere d By: Melvin Scott on 11-30-2023 [facility] XR Chest Single viewon 11-29 Coarsening of the interstitial lung markings is likely chronic. No focal consolidation is identified. No metallic foreign body is identified within the chest. Report Dictated on Electronically Signed By: Melvin Scott MD Electronically Signed Date/Time: 11/30/2023 3:00 PM EDT [facility] Patient Name: JAMES REYES : 1955 [...] are degenerative changes of the thoracic spine. [facility] Melvin Scott MD - 11/30/2023 Patient [...] Electronically Signed Date/Time: 11/30/2023 3:00 PM EDT [facility] Radiology Study observation (narrative) [facility] W Auto Differential pane l (Bld)on 11-29-2023 Basophils (Bld) [#/Vol] 0.0 10*3/uL 0.0 - 0.2 10*3/uL [facility] Basophils/100 WBC (Bld) 0.3 % 0.0 - 2.0 % [facility] Eosinophils (Bld) [#/Vol] 0.1 10*3/uL 0.0 - 0.5 10*3/uL [facility] Eosinophils/100 WBC (Bld) 2.0 % 0.0 - 6.0 % [facility] Erythrocyte distribution width (RBC) [Ratio] 15.6 % High 11.5 - 15.0 % [facility] Hematocrit (Bld) [Volume fraction] 36.9 % Low 40.0 - 52.0 % [facility] Hemoglobin (Bld) [Mass/Vol] 11.7 g/dL Low 13.0 - 18.0 g/dL [facility] Immature granulocytes (Bld) [#/Vol] 0.0 10*3/uL NINF - 0.1 10*3/uL [facility] [employer] Immature granulocytes/100 WBC (Bld) 0.3 % 0.0 - 2.0 % [facility] Interpretation and review of laboratory results Abnormal [facility] Lymphocytes (Bld) [#/Vol] 0.9 10*3/uL Low 1.0 - 4.3 10*3/uL [facility] Lymphocytes/100 WBC (Bld) 13.5 % Low 15.0 - 45.0 % [facility] MCH (RBC) [Entitic mass] 30.5 pg 26. 0 - 34.0 pg [facility] MCHC (RBC) [Mass/Vol] 31.7 % 30.5 - 36.0 % [facility] MCV (RBC) [Entitic vol] 96.1 fL 77.0 - 99.0 fL [facility] Monocytes (Bld) [#/Vol] 0.7 10*3/uL 0.0 - 0.9 10*3/uL [facility] [employer] Monocytes/100 WBC (Bld) 9.5 % 5.0 - 13.0 % [facility] [employer] Neutrophils (Bld) [#/Vol] 5.2 10*3/uL 1.8 - 7.5 10*3/uL [facility] [employer] Neutrophils/100 WBC (Bld) 74.4 % 38.0 - 82.0 % [facility] [employer] Nucleated RBC/100 WBC (Bld) [Ratio] 0.0 % [facility] [employer] Platelet mean volume (Bld) [Entitic vol] 10.3 fL 9.0 - 12.7 fL [facility] [employer] Comment on above: MPV is a calculated measurement using platelet volume ratio Platelets (Bld) [#/Vol] 219 10*3/uL 140 - 440 10*3/uL [facility] [employer] RBC (Bld) [#/Vol] 3.84 10*6/uL Low 4.40 - 5.9 0 10*6/uL [facility] [employer] WBC (Bld) [#/Vol] 7.0 10*3/uL 3.6 - 10.7 10*3/uL [facility] CT Cervical spine WO contras ton 11-29-2023 [facility] 1955 [id number] Exam Date/Time: 11/29/2023 18:06 Procedure: CT CERVICAL [...] Bilateral carotid calcifications, left greater than right. [facility] Primo Millan MD - 11/29/2023 [...] 11/29/2023 6:28 PM EDT [facility] Radiology Study observation (narrative) [facility] alth CT Head WO contraston 2023 Patient Name: [...] Bilateral carotid calcifications, left greater than right. [facility] Primo Millan MD - 11/29/2023 [...] 11/29/2023 6:28 PM EDT [facility] Radiology Study observation (narrative) [facility] Comprehensive metabolic 1998 panelon 11-29-2023 Albumin [Mass/Vol] 3.8 g/dL 3.5 - 5.0 g/dL [facility] ALP [Catalytic activity/Vol] 86 U/L 38 - 126 U/L [facility] ALT [Catalytic activity/Vol] 14 U/L 0 - 49 U/L [facility] Anion gap [Moles/Vol] 5 mmol/L 3 - 13 mmol/L [facility] AST [Catalytic activity/Vol] 20 U/L 15 - 46 U/L [facility] Bilirubin [Mass/Vol] 0.5 mg/dL 0.2 - 1 .3 mg/dL [facility] Calcium [Mass/Vol] 9.2 mg/dL 8.4 - 10. 4 mg/dL [facility] Chloride [Moles/Vol] 115 mmol/L High 98 - 10 7 mmol/L [facility] CO2 [Moles/Vol] 21 mmol/L Low 22 - 30 mmol/L [facility] Creatinine [Mass/Vol] 1.13 mg/dL 0.66 - 1.25 mg/dL [facility] GFR/1.73 sq M.predicted (S/P/Bld) [Vol rate/Area] 71.2 mL/min - PINF [employer] Comment on above: Calculation based on the Chronic Kidney Disease Epidemiology Collaboration (CKD-EPI) equation refit without adjustment for race Glucose [Mass/Vol] 93 mg/dL 70 - 100 mg/dL [facility] [employer] Interpretation and review of laboratory results Abnormal [facility] [employer] Potassium [Moles/Vol] 4.1 mmol/L 3.5 - 5.1 mmol/L [facility] [employer] Protein [Mass/Vol] 6.3 g/dL 6.3 - 8.2 g/dL [facility] [employer] Sodium [Moles/Vol] 141 mmol/L 135 - 145 mmol/L [facility] [employer] Urea nitrogen [Mass/Vol] 30 mg/dL High 9 - 20 mg/dL [facility] [employer] Laboratory - Chemistry and C hemistry - challengeon 11-29-2023 Troponin I.cardiac [Mass/Vol] ng/mL NINF - 0.034 ng/mL [facility] [employer] Glucose [Mass/Vol] 101 mg/dL High 70 - 100 mg/dL [facility] [employer] Glucose [Mass/Vol] 84 mg/dL 70 - 100 mg/dL [facility] [employer] Laboratory - Coagulationon 0 11-29-2023 PT Coag (Bld) [Time] 10.9 s 9.0 - 1 2.0 s [facility] [employer] No Panel Informationon 11-28 Interpretation and review of laboratory results Abnormal [facility] [employer] Performed by: [facility], [address] [place] [address] CLIA ID: [id number] [facility] [employer] [facility] [employer] 1. No acute intracranial findings. Chronic ischemic and atrophic changes. 2. No acute compression deformity or apparent fracture in the cervical spine. Degenerative spondylosis. Report Dictated on Electronically Signed By: Primo Millan MD Electronically Signed Date/Time: 11/29/2023 6:28 PM EDT [facility] Interpretation and review of laboratory results Normal [facility] [employer] Performed by: [facility], [address] [place] [address] CLIA ID: [id number] [facility] [employer] [facility] [employer] No Panel InformationOrdered By: Primo Millan on 11-29-2023 [employer] Work Phone: PT Coag (Bld) [Time]on 11-28 INR Coag (PPP) [Relative time] 1.0 {INR} 0.9 - 1.1 [facility] Comment on above: Recommended Anticoag ulant [...] Interpretation and review of laboratory results Normal [facility] Troponin I.cardiac [Mass/Vol ]on 11-29-2023 Interpretation and review of laboratory results Normal [facility] Patients with high levels of Biotin oral intake (ie >5 mg/day) may have falsely decreased Troponin levels. [facility] Patient Instructionson 09-13 Team Psychologist Authentication Interface Message Text Dental extraction Instructions [...] done to speak with an oral surgeon. [facility] [phone]. HELPING THE HEALING PROCESS AND STOPPING THE [...] c (more content not included)... Normal [employer] Progress Noteson 09-14-2023 Team Psychologist Authentication Interface Message Text Attestation signed by Rony Arriaza DMD, MD at 10/11/2023 1:24 PM I was personally present for the white portions of the procedure. Rony Arriaza DMD, MD ORAL SURGERY PROCEDURE ROOM NOTE [employer] [facility] Product(s): Routine extraction teeth # 21, [...] General Dentistry Jacqui Glass DDS Normal [employer] Progress Noteson 09-06-2023 Team Psychologist Authentication Interface Message Text Attestation signed by [...] with PMHx Coronary artery disease s/pCABG 2014, [facility]- showing patent GREY to the LAD 2017. LV function normal 04/2012, Angina, Acute kidney injury (HCC),CAD in [place] artery, [place], COPD, Developmental disorder, Diabetes, GERD, Hyperlipidemia, IBS (irritable bowel syndrome),Obesity, Osteoarthritis Patient present to [facility] [place] [place] clinic with external referral for removal of [...] artery without angina pectoris [I25.10] CAD in [place] artery [I25.10] Cataract, nuclear sclerotic, both eyes [...] unspecified [M15.9] Knee pain, bilateral [M25.561, M25.562] USP (current) use of antibiotics [Z79.2] Low back [...] unspecified reason [Z91.199] Peripheral vascular disease, unspecified ([facility]) [I73.9] Personal history of COVID-19 [Z86.16] Pseudomonas aeruginosa infection [A49.8] Respiratory failure (HCC) [J96.90] Shoulder pain, left [M25.512] Spondylosis without myelopathy [M47.819] Tobacco abuse [Z72.0] Type 2 diabetes mellitus treated with insulin (HCC) [E11.9, Z79.4] Type 2 diabetes mellitus with chronic kidney disease (HCC) [E11.22] Type 2 diabetes mellitus with diabetic polyneuropathy (HCC) [E11.42] Uncontrolled type 2 diabetes mellitus with hyperglycemia, with long-term current use of insulin (HCC) [E11.65, Z79.4] Unspecified dementia, moderate, with psychotic disturbance [F03.B2] Vitamin D deficiency, unspecified [E55.9] Sternal wound dehiscence [T81.32XA] Wound disruption, post-op, skin, initial encounter [T81.31XA] REVIEW OF SYSTEMS: A 12-point review of systems was completed. Negative unless otherwise stated in HPI. MEDICATIONS: Current Outpatient Medications Medication Sig Dispense Refill pantoprazole (Protonix) 40 MG tablet 1 tab(s) orally once a day trimethoprim-polymyxin b (POLYTRIM) 06203-2.1 UNIT/ML-% ophthalmic solution yuloncg-fqqiqi-auslxyrz (CREON) 61237 units capsule Take by mouth. oxyCODONE-acetaminophen (ROXICET) [...] subcutaneou (more content not included)... Normal [employer] Progress Noteson 09-05-2023 Team Psychologist Authentication Interface Message Text Normal [employer] No Panel InformationOrdered By: Nayeli Martinez on 07-14-2023 Ascending Aorta 3.4 cm [facility] Work Phone: Ascending Aorta Index 1.38 cm/m2 [facility] Work Phone: AV Area by Peak Velocity 2.5 cm2 [facility] Work Phone: AV Area by VTI 2.8 cm2 [facility] Work Phone: [phone] AV Mean Gradient 4 mmHg [facility] Work Phone: [phone] AV Mean Velocity 0.9 m/s [facility] Work Phone: [phone] AV Peak Gradient 6 mmHg [facility] Work Phone: [phone] AV Peak Velocity 1.2 m/s [facility] Work Phone: [phone] AV Velocity Ratio 0.75 [facility] Work Phone: [phone] AV VTI 21.0 cm [facility] Work Phone: [phone] KEN/BSA Peak Velocity 1.0 cm2/m2 [facility] Work Phone: [phone] KEN/BSA VTI 1.1 cm2/m2 [facility] Work Phone: [phone] Baseline Diastolic BP 68 mmHg [facility] Work Phone: [phone] Baseline HR 71 bpm [facility] Work Phone: [phone] Depression 0 mm [facility] Work Phone: [phone] Baseline Systolic BP 121 mmHg [facility] Work Phone: [phone] EF BP 64 % 55 - 100 % [facility] [employer] Work Phone: [phone] Exercise Duration Seconds 8 sec [facility] Work Phone: [phone] Exercise Duration Time 11 min [facility] Work Phone: [phone] Fractional Shortening 2D 41 % 28 - 44 % [facility] [employer] Work Phone: [phone] Interpretation and review of laboratory results Abnormal [facility] Work Phone: [phone] IVSd 1.7 cm Abnormal 0.6 - 1.0 cm [facility] Work Phone: [phone] LA Volume 4C 94 mL Abnormal 18 - 58 mL [facility] Work Phone: [phone] LA Volume Index 4C 38 mL/m2 Abnormal 16 - 34 mL/m2 [facility] Work Phone: [phone] LV EDV A2C 41 mL [facility] Work Phone: [phone] LV EDV A4C 127 mL [facility] Work Phone: LV EDV BP 75 mL 67 - 155 mL [facility] Work Phone: LV EDV Index A2C 17 mL/m2 [facility] Work Phone: [phone] LV EDV Index A4C 51 mL/m2 [facility] Work Phone: [phone] LV EDV Index BP 30 mL/m2 [facility] Work Phone: LV Ejection Fraction A2C 71 % [facility] Work Phone: [phone] LV Ejection Fraction A4C 57 % [facility] Work Phone: [phone] LV ESV A2C 12 mL [facility] Work Phone: LV ESV A4C 55 mL [facility] Work Phone: [phone] LV ESV BP 27 mL 22 - 58 mL [facility] Work Phone: [phone] LV ESV Index A2C 5 mL/m2 [facility] Work Phone: [phone] LV ESV Index A4C 22 mL/m2 [facility] Work Phone: [phone] LV ESV Index BP 11 mL/m2 [facility] Work Phone: LV Mass 2D 309.6 g Abnormal 88 - 224 g [facility] Work Phone: LV Mass 2D Index 125.3 g/m2 Abnormal 49 - 115 g/m2 [facility] Work Phone: LV RWT Ratio 0.73 [facility] Work Phone: LVIDd 4.4 cm 4.2 - 5.9 cm [facility] Work Phone: [phone] LVIDd Index 1.78 cm/m2 [facility] Work Phone: LVIDs 2.6 cm [facility] Work Phone: [phone] LVIDs Index 1.05 cm/m2 [facility] Work Phone: LVOT Area 3.5 cm2 [facility] Work Phone: LVOT Cardiac Output 5.0 liter/mi nut e [facility] Work Phone: LVOT Diameter 2.1 cm [employer] Work Phone: LVOT Mean Gradient 2 mmHg [facility] Work Phone: [phone] LVOT Peak Gradient 4 mmHg [facility] Work Phone: [phone] LVOT Peak Velocity 0.9 m/s [facility] Work Phone: [phone] LVOT Stroke Volume Index 24.9 mL/m2 [facility] Work Phone: [phone] LVOT SV 61.6 ml [facility] Work Phone: [phone] LVOT VTI 17.8 cm [facility] Work Phone: [phone] LVOT:AV VTI Index 0.85 [employer] [facility] Work Phone: LVPWd 1.6 cm Abnormal 0.6 - 1.0 cm [facility] Work Phone: [phone] MV A Velocity 0.75 m/s [employer] Work Phone: MV E Velocity 0.54 m/s [employer] Work Phone: MV E Wave Deceleration Time 189.6 ms [employer] Phone: MV E/A 0.72 [employer] Phone: Recovery Stage 1 Duration 1:15 min:sec [employer] Phone: Recovery Stage 1 HR 130 bpm [employer] Phone: Recovery Stage 2 BP 115/44 mmHg [employer] Phone: Recovery Stage 2 Duration 2:15 min:sec [employer] Phone: Recovery Stage 2 HR 130 bpm [facility] Phone: Recovery Stage 3 BP 131/59 mmHg [employer] Phone: Recovery Stage 3 Duration 5:15 min:sec [employer] Phone: Recovery Stage 3 HR 111 bpm [employer] Phone: Recovery Stage 4 Comments no symptoms [facility] Work Phone: Recovery Stage 4 Duration 6:15 min:sec [facility] Work Phone: Recovery Stage 4 HR 100 bpm [facility] Work Phone: Stress Diastolic BP 39 mmHg [facility] Work Phone: Stress Estimated Workload 1.0 METS [facility] Work Phone: Stress Peak HR 130 bpm [facility] Work Phone: Stress Percent HR Achieved 84 % [facility] Work Phone: Stress Rate Pressure Product 58209 bpm*mmHg [facility] Work Phone: Stress ST Depression 0 mm [facility] Work Phone: Stress Stage 1 Duration 0:50 min:sec [facility] Work Phone: Stress Stage 1 HR 73 bpm [facility] Work Phone: Stress Stage 2 Duration 2:50 min:sec [facility] Work Phone: Stress Stage 2 HR 71 bpm [facility] Work Phone: Stress Stage 3 Duration 5:4 min:sec [facility] Work Phone: Stress Stage 3 HR 88 bpm [facility] Work Phone: Stress Stage 4 BP 116/50 mmHg [facility] Work Phone: Stress Stage 4 Duration 5:50 min:sec [facility] Work Phone: Stress Stage 4 HR 94 bpm [facility] Work Phone: Stress Stage 5 BP 113/39 mmHg [facility] Work Phone: Stress Stage 5 Duration 8:50 min:sec [facility] Work Phone: Stress Stage 5 HR 114 bpm [facility] Work Phone: Stress Stage 6 Comments no symptoms [facility] Work Phone: Stress Stage 6 Duration 11:8 min:sec [facility] Work Phone: Stress Stage 6 HR 130 bpm [facility] Work Phone: Stress Systolic BP 113 mmHg [facility] Work Phone: [phone] Stress Target HR 154 bpm [facility] Work Phone: [facility] Work Phone: [phone] No Panel Informationon 07-13 Study Impression: Normal [...] 07-13-2023 Bilirubin [Mass/Vol] 0.30 mg/dL 0.20-1.[address] [facility] Comment on above: For patients on eltr ombopag therapy, use of Dimension [place] TBIL is not recommended. Chloride [Moles/Vol] 116 mmol/L 98-[address] [facility] Cholesterol [Mass/Vol] 96 mg/dL <200 [facility] Comment on above: <200 mg/dL Desirable 200-240 mg/dL Borderline >240 mg/dL High Risk Glucose [Mass/Vol] 122 mg/dL 74-106 [facility] Comment on above: Fasting Glucose resu lt from 100 to 125 mg/dL suggests IMPAIRED HOMEOSTASIS per A.D.A. criteria. Hemoglobin (Bld) [Mass/Vol] 10.1 g/dL 13.0-16.5 [facility] Potassium [Moles/Vol] 4.4 mmol/L 3.5-5.1 [facility] Protein [Mass/Vol] 5.8 g/dL 6.4-8.2 [facility] Sodium [Moles/Vol] 144 mmol/L 136-145 [facility] Triglyceride [Mass/Vol] 88 mg/dL <199 [facility] Comment on above: The drugs N-Acetylcy steine and Metamizole may falsely depress this assay.Serum Triglycerides Reference Interval Normal <150 mg/dL Borderline high 150 - 199 mg/dL High 200 - 499 mg/dL Very High > or = 500 mg/dL WBC (Bld) [#/Vol] 4.8 10*3/uL 4.4-11.0 [facility] Determination of erythrocyte mean corpuscular volume (MCV)Ordered By: Chelle Troncoso on 07-13-2023 MCV (RBC) [Entitic vol] 98.2 fL 80-94 [facility] Erythrocyte distribution wid th ratioOrdered By: Chelle Troncoso on 07-13-2023 Erythrocyte distribution width (RBC) [Ratio] 14.9 % 11.6-14.6 [facility] Erythrocyte distribution wid th standard deviationOrdered By: Chelle Troncoso on 07-13-2023 Erythrocyte distribution width (RBC) [Entitic vol] 53.7 fL 35.1-43.9 [facility] Erythrocyte sedimentation ra teOrdered By: Chelle Troncoso on 07-13-2023 ESR (Bld) [Velocity] 7 mm/h 0-[address] [facility] Hematocrit Auto (Bld) [Volum e fraction]Ordered By: Chelle Troncoso on 07-13-2023 Hematocrit (Bld) [Volume fraction] 33.5 % 40-54 [facility] Laboratory - Chemistry and C hemistry - challengeOrdered By: Chelle Troncoso on 07-13-2023 Albumin/Globulin [Mass ratio] 1.1 {ratio} 0.9-2.4 [facility] ALP [Catalytic activity/Vol] 90 U/L 45-117 [facility] ALT [Catalytic activity/Vol] 18 U/L 16-61 [facility] Cholesterol in HDL [Mass/Vol] 40 mg/dL >40 [facility] Comment on above: The drugs N-Acetylcy steine and Metamizole may falsely depress this assay. Reference Range HDL <40 mg/dL Low HDL Cholesterol HDL >or= 60 mg/dL High HDL Cholesterol Cholesterol in LDL [Mass/Vol] 38 mg/dL 0-130 [facility] CO2 [Moles/Vol] 25.0 mmol/L 21.0-32.0 [facility] Globulin (S) [Mass/Vol] 2.8 g/dL 2.2-4.2 [facility] Urea nitrogen/Creatinine [Mass ratio] 20.7 mg/mg 10-20 [facility] Laboratory - Hematology and Cell countsOrdered By: Chelle Troncoso on 07-13-2023 MCH (RBC) [Entitic mass] 29.6 pg 27.0-32.0 [facility] MCHC (RBC) [Mass/Vol] 30.1 g/dL 32-36 [facility] Platelet mean volume (Bld) [Entitic vol] 10.9 fL 6.2-12.0 [facility] Platelets (Bld) [#/Vol] 201 10*3/uL 150-450 [facility] No Panel InformationOrdered By: Chelle Troncoso on 07-13-2023 C-Reactive Protein Extended Range < 2.90 mg/L 0.0-3.0 [facility] Comment on above: C-Reactive Protein ( CRP) provides useful information for thediagnosis, therapy and monitoring of inflammatory processesand associated diseases. For the evaluation of Relative Riskfor Cardiovascular Disease, a High Sensitivity CRP (HSCRP)should be ordered. Estimated GFR (MDRD) Amer 85 mL/min >60 [facility] Comment on above: GFR Calc Estimated GFR (MDRD) Non-Af Amer 70 mL/min >60 [facility] Comment on above: Non- GFR Calc VLDL Cholesterol 18 mg/dL 5-40 [facility] RBC Auto (Bld) [#/Vol]Ordere d By: Chelle Troncoso on 07-13-2023 RBC (Bld) [#/Vol] 3.41 10*6/uL 4.6-6.2 [facility] [place] [place] Serum or plasma calcium william urement (mass/volume)Ordered By: Chelle Troncoso on 07-13-2023 Calcium [Mass/Vol] 8.5 mg/dL 8.5-10.1 [facility] Serum or plasma creatinine m easurement (mass/volume)Ordered By: Chelle Troncoso on 07-13-2023 Creatinine [Mass/Vol] 1.11 mg/dL 0.70-1.30 [facility] Comment on above: The validity of the calculated GFR & GFRAA in patients over 70 years has not been determined. Clinical correlation is essential. Serum or plasma urea nitroge n measurement (mass/volume)Ordered By: Chelle Troncoso on 07-13-2023 Urea nitrogen [Mass/Vol] 23 mg/dL 7-18 [facility] Thin prep Papanicolaou smear with manual screeningOrdered By: Chelle Troncoso on 07-13-2023 Thin prep Papanicolaou smear with manual screening 3.0 g/dL 3.2-5.0 [facility] Thin prep Papanicolaou smear with manual screening 7 U/L 15-37 [facility] Thin prep Papanicolaou smear with manual screening 3 5-15 [facility] Whole blood hemoglobin A1c/t otal hemoglobin ratio (mass fraction)Ordered By: Chelle Troncoso on 07-13-2023 HbA1c (Bld) [Mass fraction] 7.7 % 3.8-5.6 [facility] Comment on above: Normal < 5.7 % Predi abetic 5.7 - 6.4 % Diabetic >or= 6.5 % Please note range changes. CNCOon 05-08-2023 CNCO Letter Text Normal [facility] Basophil percentageOrdered B y: Chelle Troncoso on 05-02-2023 Chloride [Moles/Vol] 111 mmol/L 98-[address] [facility] Cholesterol [Mass/Vol] 96 mg/dL <200 [facility] Comment on above: <200 mg/dL Desirable 200-240 mg/dL Borderline >240 mg/dL High Risk Glucose [Mass/Vol] 118 mg/dL 74-106 [facility] Comment on above: Fasting Glucose resu lt from 100 to 125 mg/dL suggests IMPAIRED HOMEOSTASIS per A.D.A. criteria. Potassium [Moles/Vol] 4.7 mmol/L 3.5-5.1 [facility] Comment on above: Slight Hemolysis, Re sult may be falsely increased. Sodium [Moles/Vol] 142 mmol/L 136-145 [facility] Triglyceride [Mass/Vol] 86 mg/dL <199 [facility] Comment on above: The drugs N-Acetylcy steine and Metamizole may falsely depress this assay.Serum Triglycerides Reference Interval Normal <150 mg/dL Borderline high 150 - 199 mg/dL High 200 - 499 mg/dL Very High > or = 500 mg/dL Laboratory - Chemistry and C hemistry - challengeOrdered By: Chelle Troncoso on 05-02-2023 Cholesterol in HDL (Body fld) [Mass/Vol] 46 mg/dL >40 [facility] Comment on above: The drugs N-Acetylcy steine and Metamizole may falsely depress this assay. Reference Range HDL <40 mg/dL Low HDL Cholesterol HDL >or= 60 mg/dL High HDL Cholesterol Cholesterol in LDL (Body fld) [Moles/Vol] 33 mg/dL 0-130 [facility] Cholesterol in VLDL Calc [Moles/Vol] 17 mg/dL 5-40 [facility] CO2 [Moles/Vol] 26.0 mmol/L 21.0-32.0 [facility] Urea nitrogen/Creatinine [Mass ratio] 17.0 mg/mg 10-20 [facility] No Panel InformationOrdered By: Chelle Troncoso on 05-02-2023 Estimated GFR (MDRD) Amer 96 mL/min >60 [facility] Comment on above: GFR Calc Estimated GFR (MDRD) Non-Af Amer 79 mL/min >60 [facility] Comment on above: Non- GFR Calc Serum or plasma calcium william urement (mass/volume)Ordered By: Chelle Troncoso on 05-02-2023 Calcium [Mass/Vol] 9.1 mg/dL 8.5-10.1 [facility] Serum or plasma creatinine m easurement (mass/volume)Ordered By: Chelle Troncoso on 05-02-2023 Creatinine [Mass/Vol] 1.00 mg/dL 0.70-1.30 [facility] Comment on above: The validity of the calculated GFR & GFRAA in patients over 70 years has not been determined. Clinical correlation is essential. Serum or plasma urea nitroge n measurement (mass/volume)Ordered By: Chelle Troncoso on 05-02-2023 Urea nitrogen [Mass/Vol] 17 mg/dL 7-18 [facility] Thin prep Papanicolaou smear with manual screeningOrdered By: Chelle Troncoso on 05-02-2023 Thin prep Papanicolaou smear with manual screening 5 5-15 [facility] Whole blood hemoglobin A1c/t otal hemoglobin ratio (mass fraction)Ordered By: Chelle Troncoso on 05-02-2023 HbA1c (Bld) [Mass fraction] 7.6 % 3.8-5.6 [facility] Comment on above: Normal < 5.7 % Predi abetic 5.7 - 6.4 % Diabetic >or= 6.5 % Please note range changes. CBC panel Auto (Bld)Ordered By: Hang Stoner on 04-24-2023 Erythrocyte distribution width (RBC) [Ratio] 15.0 % High 11.5 - 14.5 % [facility] Hematocrit (Bld) [Volume fraction] 31.7 % Low 40.0 - 52.0 % [facility] Hemoglobin (Bld) [Mass/Vol] 10.5 g/dL Low 13.0 - 18.0 g/dL [facility] Interpretation and review of laboratory results Abnormal [facility] MCH (RBC) [Entitic mass] 29.4 pg 26. 0 - 34.0 pg [facility] MCHC (RBC) [Mass/Vol] 33.1 % 32.0 - 36.0 % [facility] MCV (RBC) [Entitic vol] 88.9 fL 80.0 - 98.0 fL [facility] Platelet mean volume (Bld) [Entitic vol] 8.2 fL 7.4 - 12.4 fL [facility] Platelets (Bld) [#/Vol] 166 10*3/uL 140 - 440 10*3/uL [facility] RBC (Bld) [#/Vol] 3.57 10*6/uL Low 4.40 - 5.9 0 10*6/uL [facility] WBC (Bld) [#/Vol] 5.6 10*3/uL 3.6 - 10.7 10*3/uL [facility] Comprehensive metabolic 1998 panelon 04-24-2023 Albumin [Mass/Vol] 3.3 g/dL Low 3.5 - 5.0 g/dL [facility] ALP [Catalytic activity/Vol] 78 U/L 38 - 126 U/L [facility] ALT [Catalytic activity/Vol] 15 U/L 0 - 49 U/L [facility] Anion gap [Moles/Vol] 8 mmol/L 3 - 13 mmol/L [facility] AST [Catalytic activity/Vol] 14 U/L Low 15 - 46 U/L [facility] Bilirubin [Mass/Vol] 0.2 mg/dL 0.2 - 1 .3 mg/dL [facility] Calcium [Mass/Vol] 8.7 mg/dL 8.4 - 10. 4 mg/dL [facility] Chloride [Moles/Vol] 107 mmol/L 98 - 10 7 mmol/L [facility] CO2 [Moles/Vol] 25 mmol/L 22 - 30 mmol/L [facility] Creatinine [Mass/Vol] 0.80 mg/dL 0.66 - 1.25 mg/dL [facility] GFR/1.73 sq M.predicted MDRD (S/P/Bld) [Vol rate/Area] - PINF [facility] Comment on above: Calculation based on the Chronic Kidney Disease Epidemiology Collaboration (CKD-EPI) equation refit without adjustment for race Glucose [Mass/Vol] 189 mg/dL High 70 - 100 mg/dL [facility] Potassium [Moles/Vol] 4.4 mmol/L 3.5 - 5.1 mmol/L [facility] Protein [Mass/Vol] 5.7 g/dL Low 6.3 - 8.2 g/dL [facility] Sodium [Moles/Vol] 140 mmol/L 135 - 145 mmol/L [facility] Urea nitrogen [Mass/Vol] 19 mg/dL 9 - 20 mg/dL [facility] Laboratory - Chemistry and C hemistry - challengeon 04-24-2023 Glucose [Mass/Vol] 159 mg/dL High 70 - 100 mg/dL [facility] Glucose [Mass/Vol] 164 mg/dL High 70 - 100 mg/dL [facility] Troponin I.cardiac [Mass/Vol] ng/mL [place] - 0.034 ng/mL [facility] Troponin I.cardiac [Mass/Vol] ng/mL [place] - 0.034 ng/mL [facility] Lipid 1996 panelon Cholesterol [Mass/Vol] 82 mg/[facility] Cholesterol in HDL [Mass/Vol] 37 mg/dL Low 40 - 60 mg/dL [facility] Cholesterol in LDL [Mass/Vol] 27 mg/dL 0 - <100 [facility] Cholesterol.total/Choles terol in HDL [Mass ratio] 2 {ratio} [facility] Comment on above: Ref Range: < 3 Low Risk for CHD 3-6 Mod Risk for CHD > 6 High Risk for CHD Triglyceride [Mass/Vol] 89 mg/dL NINF - 150 mg/dL [facility] No Panel Informationon 04-24 Interpretation and review of laboratory results Abnormal [facility] Performed by: [facility], [address] [facility] [address] CLIA ID: [id number] [employer] Interpretation and review of laboratory results Abnormal [facility] Performed by: [facility], [address], [facility] [address] CLIA ID: [id number] [facility] SINUS RHYTHM PROBABLE LEFT ATRIAL ABNORMALITY NONSPECIFIC INTRAVENTRICULAR CONDUCTION DELAY Electronically Signed On 04-24-2023 04:58:43 EST by Gerardo Pinto CV Gerardo Stoll MD - 04/24/2023 IMPRESSION: SINUS RHYTHM PROBABLE LEFT ATRIAL ABNORMALITY NONSPECIFIC INTRAVENTRICULAR CONDUCTION DELAY Electronically Signed On 04-24-2023 04:58:43 EST by Gerardo Pinto [employer] Interpretation and review of laboratory results Abnormal [facility] [facility] No Panel InformationOrdered By: Gerardo Pinto on 04-24-2023 P Warren 0 degrees [facility] Work Phone: MO Interval 168 ms [facility] Work Phone: QRS Warren -34 degrees [facility] Work Phone: QRSD Interval 118 ms [facility] Work Phone: QT Interval 440 ms [facility] Work Phone: QTC Interval 458 ms [facility] Work Phone: T Wave [place] 102 degrees [facility] Work Phone: [facility] Work Phone: Troponin I.cardiac [Mass/Vol ]on 04-24-2023 Interpretation and review of laboratory results Normal [facility] [employer] Patients with high levels of Biotin oral intake (ie >5 mg/day) may have falsely decreased Troponin levels. [facility] [employer] Interpretation and review of laboratory results Normal [facility] Patients with high levels of Biotin oral intake (ie >5 mg/day) may have falsely decreased Troponin levels. [facility] Vital signsOrdered By: Gerardo nieves on 04-24-2023 Heart rate 65 /min bpm [facility] Work Phone: Basic metabolic 1998 panelon 04-23-2023 Anion gap [Moles/Vol] 7 mmol/L 3 - 13 mmol/L [facility] Calcium [Mass/Vol] 8.9 mg/dL 8.4 - 10. 4 mg/dL [facility] Chloride [Moles/Vol] 105 mmol/L 98 - 10 7 mmol/L [facility] CO2 [Moles/Vol] 25 mmol/L 22 - 30 mmol/L [facility] Creatinine [Mass/Vol] 0.86 mg/dL 0.66 - 1.25 mg/dL [facility] GFR/1.73 sq M.predicted MDRD (S/P/Bld) [Vol rate/Area] - PINF [facility] Comment on above: Calculation based on the Chronic Kidney Disease Epidemiology Collaboration (CKD-EPI) equation refit without adjustment for race Glucose [Mass/Vol] 217 mg/dL High 70 - 100 mg/dL [facility] Interpretation and review of laboratory results Abnormal [facility] Potassium [Moles/Vol] 4.6 mmol/L 3.5 - 5.1 mmol/L [facility] Sodium [Moles/Vol] 138 mmol/L 135 - 145 mmol/L [facility] Urea nitrogen [Mass/Vol] 18 mg/dL 9 - 20 mg/dL [facility] CBC W Auto Differential pane l (Bld)Ordered By: Papo Christopher on 04-23-2023 Basophils (Bld) [#/Vol] 0.0 10*3/uL 0.0 - 0.2 10*3/uL [facility] Basophils/100 WBC (Bld) 0.8 % 0.0 - 2.0 % [facility] Eosinophils (Bld) [#/Vol] 0.1 10*3/uL 0.0 - 0.5 10*3/uL [facility] Eosinophils/100 WBC (Bld) 2.5 % 1.0 - 6.0 % [facility] Erythrocyte distribution width (RBC) [Ratio] 14.9 % High 11.5 - 14.5 % [facility] Hematocrit (Bld) [Volume fraction] 34.3 % Low 40.0 - 52.0 % [facility] Hemoglobin (Bld) [Mass/Vol] 11.5 g/dL Low 13.0 - 18.0 g/dL [facility] Interpretation and review of laboratory results Abnormal [facility] Lymphocytes (Bld) [#/Vol] 1.1 10*3/uL 1.0 - 4.3 10*3/uL [facility] Lymphocytes/100 WBC (Bld) 20.0 % 20.0 - 40.0 % [facility] MCH (RBC) [Entitic mass] 29.7 pg 26. 0 - 34.0 pg [facility] MCHC (RBC) [Mass/Vol] 33.5 % 32.0 - 36.0 % [facility] MCV (RBC) [Entitic vol] 88.5 fL 80.0 - 98.0 fL [facility] Monocytes (Bld) [#/Vol] 0.5 10*3/uL 0.0 - 0.8 10*3/uL [facility] Monocytes/100 WBC (Bld) 10.0 % 2.0 - 10.0 % [facility] Neutrophils (Bld) [#/Vol] 3.6 10*3/uL 1.8 - 7.0 10*3/uL [facility] Neutrophils/100 WBC (Bld) 66.7 % 40.0 - 80.0 % [facility] Nucleated RBC/100 WBC (Bld) [Ratio] 0.1 % [facility] Platelet mean volume (Bld) [Entitic vol] 8.5 fL 7.4 - 12.4 fL [facility] Platelets (Bld) [#/Vol] 192 10*3/uL 140 - 440 10*3/uL [facility] RBC (Bld) [#/Vol] 3.87 10*6/uL Low 4.40 - 5.9 0 10*6/uL [facility] WBC (Bld) [#/Vol] 5.4 10*3/uL 3.6 - 10.7 10*3/uL [facility] Laboratory - Chemistry and C hemistry - challengeon 04-23-2023 Troponin I.cardiac [Mass/Vol] ng/mL NINF - 0.034 ng/mL [facility] Troponin I.cardiac [Mass/Vol ]on 04-23-2023 Interpretation and review of laboratory results Normal [facility] Patients with high levels of Biotin oral intake (ie >5 mg/day) may have falsely decreased Troponin levels. [facility] XR Chest Single viewon 04-23 1. No acute findings. Report Dictated on Electronically Signed By: Primo Millan MD Electronically Signed Date/Time: 04/23/2023 8:42 PM EST [facility] RADIOLOGY SYSTEM Patient Name: JAMES REYES : [...] No apparent pneumothorax. Bony thorax grossly unremarkable. [facility] Primo Millan MD - 04/23/2023 Patient Name: [...] 04/23/2023 8:42 PM EST [facility] Radiology Study observation (narrative) [facility] XR Chest Single viewOrdered By: Primo Millan on 04-23-2023 [facility] Work Phone: Basophil percentageOrdered B y: Chelle Troncoso on 12-01-2022 Bilirubin [Mass/Vol] 0.30 mg/dL 0.20-1.[address] [facility] Comment on above: For patients on eltr ombopag therapy, use of Dimension [place] TBIL is not recommended. Chloride [Moles/Vol] 115 mmol/L 98-[address] [facility] Glucose [Mass/Vol] 192 mg/dL 74-106 [facility] Comment on above: Fasting Glucose resu lt greater than or equal to 126 mg/dL suggests DIABETES MELLITUS per A.D.A. criteria. Potassium [Moles/Vol] 3.8 mmol/L 3.5-5.1 [facility] Protein [Mass/Vol] 5.6 g/dL 6.4-8.2 [facility] Sodium [Moles/Vol] 142 mmol/L 136-145 [facility] WBC (Bld) [#/Vol] 4.1 10*3/uL 4.4-11.0 [facility] Blood erythrocytes count (nu mber/volume)Ordered By: Chelle Troncoso on 12-01-2022 RBC (Bld) [#/Vol] 3.47 10*6/uL 4.6-6.2 [facility] Blood hemoglobin measurement (mass/volume)Ordered By: Chelle Troncoso on 12-01-2022 Hemoglobin (Bld) [Mass/Vol] 10.0 g/dL 13.0-16.5 [facility] Blood platelet mean volumeOr dered By: Chelle Troncoso on 12-01-2022 Platelet mean volume (Bld) [Entitic vol] 10.8 fL 6.2-12.0 [facility] Determination of erythrocyte mean corpuscular volume (MCV)Ordered By: Chelle Troncoso on 12-01-2022 MCV (RBC) [Entitic vol] 93.1 fL 80-94 [facility] Hematocrit Auto (Bld) [Volum e fraction]Ordered By: Chelle Troncoso on 12-01-2022 Hematocrit (Bld) [Volume fraction] 32.3 % 40-54 [facility] Laboratory - Chemistry and C hemistry - challengeOrdered By: Chelle Troncoso on 12-01-2022 ALP [Catalytic activity/Vol] 102 U/L 45-117 [facility] ALT [Catalytic activity/Vol] 17 U/L 16-61 [facility] CO2 [Moles/Vol] 23.0 mmol/L 21.0-32.0 [facility] Globulin (S) [Mass/Vol] 2.7 g/dL 2.2-4.2 [facility] Lipase [Catalytic activity/Vol] 11 U/L 13-75 [facility] Comment on above: Please note:LIPASE r evised reference range effective 22. New Lipase methodology. Expected to produce lower values than the previous assay method. NEW Reference Range: 13 - 75 U/L Magnesium [Mass/Vol] 2.0 mg/dL 1.6-2.[address] [facility] Urea nitrogen/Creatinine [Mass ratio] 15.6 mg/mg 10-20 [facility] Laboratory - Hematology and Cell countsOrdered By: Chelle Troncoso on 12-01-2022 Erythrocyte distribution width (RBC) [Entitic vol] 50.5 fL 35.1-43.9 [facility] Erythrocyte distribution width (RBC) [Ratio] 14.7 % 11.6-14.6 [facility] MCH (RBC) [Entitic mass] 28.8 pg 27.0-32.0 [facility] MCHC Auto (RBC) [Mass/Vol]Or dered By: Chelle Troncoso on 12-01-2022 MCHC (RBC) [Mass/Vol] 31.0 g/dL 32-36 [facility] No Panel InformationOrdered By: Chelle Troncoso on 12-01-2022 Estimated GFR (MDRD) Amer 72 mL/min >60 [facility] Comment on above: GFR Calc Estimated GFR (MDRD) Non-Af Amer 60 mL/min >60 [facility] Comment on above: Non- GFR Calc Platelets bldOrdered By: Costa Troncoso on 12-01-2022 Platelets (Bld) [#/Vol] 215 10*3/uL 150-450 [facility] Serum or plasma albumin william urement (mass/volume)Ordered By: Chelle Troncoso on 12-01-2022 Albumin [Mass/Vol] 2.9 g/dL 3.2-5.0 [facility] Serum or plasma albumin/glob ulin mass ratioOrdered By: Chelle Troncoso on 12-01-2022 Albumin/Globulin [Mass ratio] 1.1 {ratio} 0.9-2.4 [facility] Serum or plasma calcium william urement (mass/volume)Ordered By: Chelle Troncoso on 12-01-2022 Calcium [Mass/Vol] 8.7 mg/dL 8.5-10.1 [facility] Serum or plasma creatinine m easurement (mass/volume)Ordered By: Chelle Troncoso on 12-01-2022 Creatinine [Mass/Vol] 1.28 mg/dL 0.70-1.30 [facility] Comment on above: The validity of the calculated GFR & GFRAA in patients over 70 years has not been determined. Clinical correlation is essential. Serum or plasma urea nitroge n measurement (mass/volume)Ordered By: Chelle Troncoso on 12-01-2022 Urea nitrogen [Mass/Vol] 20 mg/dL 7-18 [facility] Thin prep Papanicolaou smear with manual screeningOrdered By: Chelle Troncoso on 12-01-2022 Thin prep Papanicolaou smear with manual screening 9 U/L 15-37 [facility] Thin prep Papanicolaou smear with manual screening 4 5-15 [facility] Basophil percentageOrdered B y: Chelle Troncoso on 10-13-2022 Bilirubin [Mass/Vol] 0.30 mg/dL 0.20-1.[address] [facility] Comment on above: For patients on eltr ombopag therapy, use of Dimension [place] TBIL is not recommended. Chloride [Moles/Vol] 110 mmol/L 98-[address] [facility] Cholesterol [Mass/Vol] 78 mg/dL <200 [facility] Comment on above: <200 mg/dL Desirable 200-240 mg/dL Borderline >240 mg/dL High Risk Glucose [Mass/Vol] 237 mg/dL 74-106 [facility] Comment on above: Glucose result great er than or equal to 200 mg/dLsuggests DIABETES MELLITUS per A.D.A. criteria. Potassium [Moles/Vol] 4.4 mmol/L 3.5-5.1 [facility] Protein [Mass/Vol] 5.9 g/dL 6.4-8.2 [facility] Sodium [Moles/Vol] 141 mmol/L 136-145 [facility] Triglyceride [Mass/Vol] 79 mg/dL <199 [facility] Comment on above: The drugs N-Acetylcy steine and Metamizole may falsely depress this assay.Serum Triglycerides Reference Interval Normal <150 mg/dL Borderline high 150 - 199 mg/dL High 200 - 499 mg/dL Very High > or = 500 mg/dL WBC (Bld) [#/Vol] 5.4 10*3/uL 4.4-11.0 [facility] Blood erythrocytes count (nu mber/volume)Ordered By: Chelle Troncoso on 10-13-2022 RBC (Bld) [#/Vol] 3.46 10*6/uL 4.6-6.2 [facility] Blood hemoglobin measurement (mass/volume)Ordered By: Chelle Troncoso on 10-13-2022 Hemoglobin (Bld) [Mass/Vol] 10.2 g/dL 13.0-16.5 [facility] Blood platelet mean volumeOr dered By: Chelle Troncoso on 10-13-2022 Platelet mean volume (Bld) [Entitic vol] 11.0 fL 6.2-12.0 [facility] Determination of erythrocyte mean corpuscular volume (MCV)Ordered By: Chelle Troncoso on 10-13-2022 MCV (RBC) [Entitic vol] 93.9 fL 80-94 [facility] Hematocrit Auto (Bld) [Volum e fraction]Ordered By: Chelle Troncoso on 10-13-2022 Hematocrit (Bld) [Volume fraction] 32.5 % 40-54 [facility] Laboratory - Chemistry and C hemistry - challengeOrdered By: Chelle Troncoso on 10-13-2022 ALP [Catalytic activity/Vol] 100 U/L 45-117 [facility] ALT [Catalytic activity/Vol] 17 U/L 16-61 [facility] CO2 [Moles/Vol] 26.0 mmol/L 21.0-32.0 [facility] Globulin (S) [Mass/Vol] 2.9 g/dL 2.2-4.2 [facility] Urea nitrogen/Creatinine [Mass ratio] 23.5 mg/mg 10-20 [facility] Laboratory - Hematology and Cell countsOrdered By: Chelle Troncoso on 10-13-2022 Erythrocyte distribution width (RBC) [Entitic vol] 52.2 fL 35.1-43.9 [facility] Erythrocyte distribution width (RBC) [Ratio] 15.2 % 11.6-14.6 [facility] MCH (RBC) [Entitic mass] 29.5 pg 27.0-32.0 [facility] MCHC Auto (RBC) [Mass/Vol]Or dered By: Chelle Troncoso on 10-13-2022 MCHC (RBC) [Mass/Vol] 31.4 g/dL 32-36 [facility] No Panel InformationOrdered By: Chelle Troncoso on 10-13-2022 Estimated GFR (MDRD) Amer 67 mL/min >60 [facility] Comment on above: GFR Calc Estimated GFR (MDRD) Non-Af Amer 56 mL/min >60 [facility] Comment on above: Non- GFR Calc Platelets bldOrdered By: Costa Troncoso on 10-13-2022 Platelets (Bld) [#/Vol] 200 10*3/uL 150-450 [facility] Serum or plasma albumin william urement (mass/volume)Ordered By: Chelle Troncoso on 10-13-2022 Albumin [Mass/Vol] 3.0 g/dL 3.2-5.0 [facility] Serum or plasma albumin/glob ulin mass ratioOrdered By: Chelle Troncoso on 10-13-2022 Albumin/Globulin [Mass ratio] 1.0 {ratio} 0.9-2.4 [facility] Serum or plasma calcium william urement (mass/volume)Ordered By: Chelle Troncoso on 10-13-2022 Calcium [Mass/Vol] 8.4 mg/dL 8.5-10.1 [facility] Serum or plasma cholesterol in HDL measurement (mass/volume)Ordered By: Chelle Troncoso on 10-13-2022 Cholesterol in HDL [Mass/Vol] 40 mg/dL >40 [facility] Comment on above: The drugs N-Acetylcy steine and Metamizole may falsely depress this assay. Reference Range HDL <40 mg/dL Low HDL Cholesterol HDL >or= 60 mg/dL High HDL Cholesterol Serum or plasma cholesterol in VLDL measurement (mass/volume)Ordered By: Chelle Troncoso on 10-13-2022 Cholesterol in VLDL [Mass/Vol] 16 mg/dL 5-40 [facility] Serum or plasma creatinine m easurement (mass/volume)Ordered By: Chelle Troncoso on 10-13-2022 Creatinine [Mass/Vol] 1.36 mg/dL 0.70-1.30 [facility] Comment on above: The validity of the calculated GFR & GFRAA in patients over 70 years has not been determined. Clinical correlation is essential. Serum or plasma low density lipoprotein (LDL) cholesterol measurement (mass/volume)Ordered By: Chelle Troncoso on 10-13-2022 Cholesterol in LDL [Mass/Vol] 22 mg/dL 0-130 [facility] Serum or plasma urea nitroge n measurement (mass/volume)Ordered By: Chelle Troncoso on 10-13-2022 Urea nitrogen [Mass/Vol] 32 mg/dL 7-18 [facility] Thin prep Papanicolaou smear with manual screeningOrdered By: Chelle Troncoso on 10-13-2022 Thin prep Papanicolaou smear with manual screening 11 U/L 15-37 [facility] Thin prep Papanicolaou smear with manual screening 5 5-15 [facility] Whole blood hemoglobin A1c/t otal hemoglobin ratio (mass fraction)Ordered By: Chelle Troncoso on 10-13-2022 HbA1c (Bld) [Mass fraction] 7.6 % 3.8-5.6 [facility] Comment on above: Normal < 5.7 % Predi abetic 5.7 - 6.4 % Diabetic >or= 6.5 % Please note range changes. Basophil percentageOrdered B y: Chelle Troncoso on 10-12-2022 Bilirubin [Mass/Vol] 0.20 mg/dL 0.20-1.[address] [facility] Comment on above: For patients on eltr ombopag therapy, use of Dimension [place] TBIL is not recommended. Chloride [Moles/Vol] 108 mmol/L 98-[address] [facility] Cholesterol [Mass/Vol] 80 mg/dL <200 [facility] Comment on above: <200 mg/dL Desirable 200-240 mg/dL Borderline >240 mg/dL High Risk Glucose [Mass/Vol] 314 mg/dL 74-106 [facility] Comment on above: Glucose result great er than or equal to 200 mg/dLsuggests DIABETES MELLITUS per A.D.A. criteria. Potassium [Moles/Vol] 4.4 mmol/L 3.5-5.1 [facility] Protein [Mass/Vol] 5.9 g/dL 6.4-8.2 [facility] Sodium [Moles/Vol] 137 mmol/L 136-145 [facility] Triglyceride [Mass/Vol] 99 mg/dL <199 [facility] Comment on above: The drugs N-Acetylcy steine and Metamizole may falsely depress this assay.Serum Triglycerides Reference Interval Normal <150 mg/dL Borderline high 150 - 199 mg/dL High 200 - 499 mg/dL Very High > or = 500 mg/dL WBC (Bld) [#/Vol] 6.2 10*3/uL 4.4-11.0 [facility] Blood erythrocytes count (nu mber/volume)Ordered By: Chelle Troncoso on 10-12-2022 RBC (Bld) [#/Vol] 3.50 10*6/uL 4.6-6.2 [facility] Blood hemoglobin measurement (mass/volume)Ordered By: Chelle Troncoso on 10-12-2022 Hemoglobin (Bld) [Mass/Vol] 10.2 g/dL 13.0-16.5 [facility] Blood platelet mean volumeOr dered By: Chelle Troncoso on 10-12-2022 Platelet mean volume (Bld) [Entitic vol] 10.9 fL 6.2-12.0 [facility] Determination of erythrocyte mean corpuscular volume (MCV)Ordered By: Chelle Troncoso on 10-12-2022 MCV (RBC) [Entitic vol] 94.9 fL 80-94 [facility] Hematocrit Auto (Bld) [Volum e fraction]Ordered By: Chelle Troncoso on 10-12-2022 Hematocrit (Bld) [Volume fraction] 33.2 % 40-54 [facility] Laboratory - Chemistry and C hemistry - challengeOrdered By: Chelle Troncoso on 10-12-2022 ALP [Catalytic activity/Vol] 104 U/L 45-117 [facility] ALT [Catalytic activity/Vol] 20 U/L 16-61 [facility] CO2 [Moles/Vol] 25.0 mmol/L 21.0-32.0 [facility] Globulin (S) [Mass/Vol] 2.9 g/dL 2.2-4.2 [facility] Urea nitrogen/Creatinine [Mass ratio] 20.8 mg/mg 10-20 [facility] Laboratory - Hematology and Cell countsOrdered By: Chelle Troncoso on 10-12-2022 Erythrocyte distribution width (RBC) [Entitic vol] 52.6 fL 35.1-43.9 [facility] Erythrocyte distribution width (RBC) [Ratio] 15.1 % 11.6-14.6 [facility] MCH (RBC) [Entitic mass] 29.1 pg 27.0-32.0 [facility] MCHC Auto (RBC) [Mass/Vol]Or dered By: Chelle Troncoso on 10-12-2022 MCHC (RBC) [Mass/Vol] 30.7 g/dL 32-36 [facility] No Panel InformationOrdered By: Chelle Troncoso on 10-12-2022 Estimated GFR (MDRD) Amer 63 mL/min >60 [facility] Comment on above: GFR Calc Estimated GFR (MDRD) Non-Af Amer 52 mL/min >60 [facility] Comment on above: Non- GFR Calc Thyroid Stimulating Hormone (TSH) 2.41 uIU/mL 0.358-3.74 [facility] Vitamin D 25-Hydroxy 61.6 ng/mL [facility] Comment on above: Vitamin D 25(OH) Sta tus Range Deficiency <20 ng/mL (50nmol/L) Insufficiency 20 - 30 ng/mL (50 - 75 nmol/L) Sufficiency 30 - 100 ng/mL (75 - 250 nmol/L) Toxicity >100 ng/mL (>250 nmol/L) Platelets bldOrdered By: Costa Troncoso on 10-12-2022 Platelets (Bld) [#/Vol] 203 10*3/uL 150-450 [facility] Serum or plasma albumin william urement (mass/volume)Ordered By: Chelle Troncoso on 10-12-2022 Albumin [Mass/Vol] 3.0 g/dL 3.2-5.0 [facility] Serum or plasma albumin/glob ulin mass ratioOrdered By: Chelle Troncoso on 10-12-2022 Albumin/Globulin [Mass ratio] 1.0 {ratio} 0.9-2.4 [facility] Serum or plasma calcium william urement (mass/volume)Ordered By: Chelle Troncoso on 10-12-2022 Calcium [Mass/Vol] 8.5 mg/dL 8.5-10.1 [facility] Serum or plasma cholesterol in HDL measurement (mass/volume)Ordered By: Chelle Troncoso on 10-12-2022 Cholesterol in HDL [Mass/Vol] 36 mg/dL >40 [facility] Comment on above: The drugs N-Acetylcy steine and Metamizole may falsely depress this assay. Reference Range HDL <40 mg/dL Low HDL Cholesterol HDL >or= 60 mg/dL High HDL Cholesterol Serum or plasma cholesterol in VLDL measurement (mass/volume)Ordered By: Chelle Troncoso on 10-12-2022 Cholesterol in VLDL [Mass/Vol] 20 mg/dL 5-40 [facility] Serum or plasma creatinine m easurement (mass/volume)Ordered By: Chelle Troncoso on 10-12-2022 Creatinine [Mass/Vol] 1.44 mg/dL 0.70-1.30 [facility] Comment on above: The validity of the calculated GFR & GFRAA in patients over 70 years has not been determined. Clinical correlation is essential. Serum or plasma low density lipoprotein (LDL) cholesterol measurement (mass/volume)Ordered By: Chelle Troncoso on 10-12-2022 Cholesterol in LDL [Mass/Vol] 24 mg/dL 0-130 [facility] Serum or plasma urea nitroge n measurement (mass/volume)Ordered By: Chelle Troncoso on 10-12-2022 Urea nitrogen [Mass/Vol] 30 mg/dL 7-18 [facility] Thin prep Papanicolaou smear with manual screeningOrdered By: Chelle Troncoso on 10-12-2022 Thin prep Papanicolaou smear with manual screening 11 U/L 15-37 [facility] Thin prep Papanicolaou smear with manual screening 4 5-15 [facility] Whole blood hemoglobin A1c/t otal hemoglobin ratio (mass fraction)Ordered By: Chelle Troncoso on 10-12-2022 HbA1c (Bld) [Mass fraction] 7.6 % 3.8-5.6 [facility] Comment on above: Normal < 5.7 % Predi abetic 5.7 - 6.4 % Diabetic >or= 6.5 % Please note range changes. US Heart TransthoracicOrdere d By: Suzy Corcoran on 04-27-2022 Aortic Arch 2.9 cm [facility] [employer] Work Phone: Aortic Sinus Valsalva 3.8 cm [facility] [employer] Work Phone: Aortic Sinus Valsalva Index 1.50 cm/m2 [facility] [employer] Work Phone: [facility] Work Phone: Ascending Aorta Index 1.46 cm/m2 [facility] [employer] Work Phone: E/E' Lateral 6.85 [facility] [employer] Work Phone: E/E' Ratio (Averaged) 8.99 [facility] [employer] Work Phone: E/E' Septal 11.13 [facility] [employer] Phone: EF BP 75 % 55 - 100 % [facility] [employer] Phone: Fractional Shortening 2D 24 % 28 - 44 % [facility] [employer] Work Phone: Interpretation and review of laboratory results Abnormal [facility] [employer] Work Phone: [facility] [employer] Work Phone: IVSd 1.9 cm Abnormal 0.6 - 1.0 cm [facility] [employer] [employer] Work Phone: LA Diameter 5.0 cm [facility] [employer] Work Phone: LA Size Index 1.97 cm/m2 [facility] [employer] Work Phone: LA Volume 2C 49 mL 18 - 58 mL [facility] Work Phone: LA Volume 4C 93 mL Abnormal 18 - 58 mL [facility] Work Phone: LA Volume A/L 74 mL [facility] Work Phone: LA Volume Index 2C 19 mL/m2 16 - 34 mL/m2 [facility] Work Phone: LA Volume Index 4C 37 mL/m2 Abnormal 16 - 34 mL/m2 [facility] Work Phone: LA Volume Index A/L 29 mL/m2 16 - 34 mL/m2 [facility] Work Phone: LV E' Lateral Velocity 13 cm/s [facility] Work Phone: LV E' Septal Velocity 8 cm/s [facility] Work Phone: LV EDV A2C 93 mL [facility] Work Phone: LV EDV A4C 147 mL [facility] Work Phone: LV EDV BP 124 mL 67 - 155 mL [facility] Work Phone: LV EDV Index A2C 37 mL/m2 [facility] He [facility] Work Phone: LV EDV Index A4C 58 mL/m2 [facility] Work Phone: LV EDV Index BP 49 mL/m2 [facility] Work Phone: LV Ejection Fraction A2C 84 % [facility] Work Phone: LV Ejection Fraction A4C 67 % [facility] Work Phone: LV ESV A2C 15 mL [facility] Work Phone: LV ESV A4C 49 mL [facility] Work Phone: LV ESV BP 30 mL 22 - 58 mL [facility] Work Phone: LV ESV Index A2C 6 mL/m2 [facility] Work Phone: LV ESV Index A4C 19 mL/m2 [facility] He [facility] Work Phone: LV ESV Index BP 12 mL/m2 [facility] Work Phone: LV Mass 2D 381.1 g Abnormal 88 - 224 g [facility] Work Phone: LV Mass 2D Index 150.0 g/m2 Abnormal 49 - 115 g/m2 [facility] [employer] Work Phone: LV RWT Ratio 0.95 [facility] [employer] Work Phone: LVIDd 4.2 cm 4.2 - 5.9 cm [facility] [employer] Work Phone: LVIDd Index 1.65 cm/m2 [facility] [employer] Work Phone: LVIDs 3.2 cm [facility] [employer] Work Phone: LVIDs Index 1.26 cm/m2 [facility] [employer] Work Phone: LVOT Area 4.2 cm2 [facility] [employer] Work Phone: LVOT Cardiac Output 8.0 liter/mi nut e [facility] [employer] Work Phone: LVOT Diameter 2.3 cm [facility] [employer] Work Phone: LVOT Mean Gradient 4 mmHg [facility] [employer] Work Phone: LVOT Peak Gradient 9 mmHg [facility] [employer] Work Phone: LVOT Peak Velocity 1.5 m/s [facility] [employer] Work Phone: LVOT Stroke Volume Index 45.8 mL/m2 [facility] [employer] Work Phone: LVOT SV 116.3 ml [facility] [employer] Work Phone: LVOT VTI 28.0 cm [facility] [employer] Work Phone: LVPWd 2.0 cm Abnormal 0.6 - 1.0 cm [facility] [employer] Work Phone: MV A Velocity 0.59 m/s [facility] [employer] Work Phone: MV E Velocity 0.89 m[facility]s [facility] Work Phone: MV E Wave Deceleration Time 270.2 ms [facility] Work Phone: MV E/A 1.51 [facility] Work Phone: RV Basal Dimension 3.1 cm [facility] Work Phone: RV Free Wall Peak S' 9 cm/s [facility] Work Phone: RV Mid Dimension 2.6 cm [facility] [employer] Work Phone: Sinotubular Junction 3.1 cm [facility] Work Phone: TAPSE 2.2 cm 1.7 cm [facility] Work Phone: [facility] Work Phone: Heart Transthoracicon Left Ventricle: Left [...] imaging. Echo Additional Conclusions Technically difficult study. [facility] HEALTHon 07-28-2021 ALLIED HEALTH HNO ID: [id number] Author: NATALEE Edward) Service: ? Author Type: Ems Driver Type: [employer] Filed: 07/28/2021 11:34 AM Note Text: Radiology [...] Wagner(R) July 28, 2021 11:[address] [facility] CBC panel Auto (Bld)on 07-28 Erythrocyte distribution width (RBC) [Ratio] 15.0 % Normal 11.5-15.0 [facility] Comment on above: Order Comment: Speci men Type: BLOOD SPECIMENOrdering Facility: [facility] Address: [address] [place] [phone] Performed By: #### 5 8410-2 ####[facility] LABORATORYCLIA [id number] [place] [address] [place] Hematocrit (Bld) [Volume fraction] 36.6 % Low 39.0-51.0 [facility] Comment on above: Order Comment: Speci men Type: BLOOD SPECIMENOrdering Facility: [facility] Address: [address] [place] [address] Performed By: #### 5 8410-2 ####[facility] LABORATORYCLIA [id number] [address] OF [facility] Hemoglobin (Bld) [Mass/Vol] 11.6 g/dL Low 13.0-17.0 [facility] Comment on above: Order Comment: Speci men Type: BLOOD SPECIMENOrdering Facility: [facility] Address: [address] [place] [address] Performed By: #### 5 8410-2 ####[facility] LABORATORYCLIA [id number] [address] MCH (RBC) [Entitic mass] 28.3 pg Normal 26.0-34.0 [facility] Comment on above: Order Comment: Speci men Type: BLOOD SPECIMENOrdering Facility: [facility] Address: [address] [place] [address] Performed By: #### 5 8410-2 ####[facility] LABORATORYCLIA [id number] [address] STATES OF [facility] MCHC (RBC) [Mass/Vol] 31.7 g/dL Normal 30.5-36.0 [facility] Comment on above: Order Comment: Speci men Type: BLOOD SPECIMENOrdering Facility: [facility] Address: [address] [place] [address] Performed By: #### 5 8410-2 ####[facility] LABORATORYCLIA [id number] [address] MCV (RBC) [Entitic vol] 89.3 fL Normal 80.0-100.0 [facility] Comment on above: Order Comment: Speci men Type: BLOOD SPECIMENOrdering Facility: [facility] Address: [address] [address] Performed By: #### 5 8410-2 ####[facility] LABORATORYCLIA [id number] [address] Nucleated RBC (Bld) [#/Vol] 10*3/uL Normal <0.01 [facility] Comment on above: Order Comment: Speci men Type: BLOOD SPECIMENOrdering Facility: [facility] Address: [address] [place] [address] Performed By: #### 5 8410-2 ####[facility] LABORATORYCLIA [id number] [address] OF [place] Platelet mean volume (Bld) [Entitic vol] 10.3 fL Normal 9.0-12.7 [facility] Comment on above: Order Comment: Speci men Type: BLOOD SPECIMENOrdering Facility: [facility] Address: [address] [place] [address] Performed By: #### 5 8410-2 ####[facility] LABORATORYCLIA [id number] [address] Platelets (Bld) [#/Vol] 377 10*3/uL Normal 150-400 [facility] Comment on above: Order Comment: Speci men Type: BLOOD SPECIMENOrdering Facility: [facility] Address: [address] [place] [address] Performed By: #### 5 8410-2 ####[facility] LABORATORYCLIA [id number] [address] RBC (Bld) [#/Vol] 4.10 10*6/uL Low 4.20-6.00 [facility] Comment on above: Order Comment: Speci men Type: BLOOD SPECIMENOrdering Facility: [facility] Address: [address] [place] [address] Performed By: #### 5 8410-2 ####[facility] LABORATORYCLIA [id number] [address] OF [place] WBC (Bld) [#/Vol] 16.69 10*3/uL [facility] 3.70-11.00 [facility] Comment on above: Order Comment: Speci men Type: BLOOD SPECIMENOrdering Facility: [facility] Address: [address] [place] [address] Performed By: #### 5 8410-2 ####[facility] LABORATORYCLIA [id number] [place] [address] [facility] CNDSon 07-28-2021 CNDS HNO ID: [id number] Author: Rosalie Dorantes DO Service: Critical Care [...] ? Mr. 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 Normal [facility] CONSULT PROGobarron 07-28-2021 CONSULT PROG HNO ID: [id number] Author: James Mai MD Service: Endocrinology Author [...] of metformin ? HbA1c: No data in [facility]. Review of systems: Constitutional: No new [...] 60 Units (more content not included)... Normal [facility] NURSING PROGon 07-28-2021 NURSING PROG HNO ID: [id number] Author: Wilmar Vigil RN Service: ? Author Type: Registered Nurse Type: Nursing Progress Note Filed: 07/28/2021 7:20 PM Note Text: Nursing Progress Note Patient Name: James Reyes Patient Location: [place] [address] [address] 10-15 Daily Note: Nurse to nurse given to MARLEY Pichardo at [facility] [place]. Patient transport set up for 7pm. All questions answered. It was requested by Kylee that the chaudhari and IV's be left in place. Patient will be discharged with coude chaudhari, 20 left AC PIV, and 20 right AC PIV. Patient in stable condition. This note was completed by: Wilmar Vigil [facility] PROCALCITONIN (LAB)on 2021 Procalcitonin [Mass/Vol] 0.09 ng/mL High <0.09 [facility] Comment on above: Order Comment: Speci men Type: BLOOD SPECIMENOrdering Facility: [facility] Address: [address] [place] [phone] Result Comment: For a guided interpretation of test results, please visit the Change in Procalcitonin Calculator, [email or web address]. Performed By: #### 2 4362-6, PROCAL ####[facility] LABORATORYCLIA [id number] [place] [address] [place] Renal function 2000 panelon 07-28-2021 Albumin [Mass/Vol] 2.5 g/dL Low 3.9-4.9 [facility] Comment on above: Order Comment: Speci men Type: BLOOD SPECIMENOrdering Facility: [facility] Address: [address] [place] [address] Performed By: #### 2 4362-6, PROCAL ####[facility] LABORATORYCLIA [id number] [address] [place] Anion gap [Moles/Vol] 9 mmol/L Normal 9-18 [facility] Comment on above: Order Comment: Speci men Type: BLOOD SPECIMENOrdering Facility: [facility] Address: [address] [place] [address] Performed By: #### 2 4362-6, PROCAL ####[facility] LABORATORYCLIA [id number] [place] [address] [place] Calcium [Mass/Vol] 8.2 mg/dL Low 8.5-10.2 [facility] Comment on above: Order Comment: Speci men Type: BLOOD SPECIMENOrdering Facility: [facility] Address: [address] [place] [address] Performed By: #### 2 4362-6, PROCAL ####[facility] LABORATORYCLIA [id number] [place] [address] [place] Chloride [Moles/Vol] 95 mmol/L Low 97-105 [facility] Comment on above: Order Comment: Speci men Type: BLOOD SPECIMENOrdering Facility: [facility] Address: [address] [place] [address] Performed By: #### 2 4362-6, PROCAL ####[facility] LABORATORYCLIA [id number] [place] [address] [place] CO2 [Moles/Vol] 30 mmol/L Normal 22-30 [facility] Comment on above: Order Comment: Speci men Type: BLOOD SPECIMENOrdering Facility: [facility] Address: [address] [address] Performed By: #### 2 4362-6, PROCAL ####[facility] LABORATORYCLIA [id number] [place] [address] [place] Creatinine [Mass/Vol] 1.28 mg/dL High 0.73-1.22 [facility] Comment on above: Order Comment: Speci men Type: BLOOD SPECIMENOrdering Facility: [facility] Address: [address] [address] Performed By: #### 2 4362-6, PROCAL ####[facility] LABORATORYCLIA [id number] [address] OF [place] ESTIMATED GLOMERULAR FILTRATION RATE 62 mL/min/1.73m??? Normal >=60 [facility] Comment on above: Order Comment: Speci men Type: BLOOD SPECIMENOrdering Facility: [facility] Address: [address] [place] [address] Result Comment: Anu mated Glomerular Filtration Rate [...] GFR. Performed By: #### 2 4362-6, PROCAL ####[facility] LABORATORYCLIA [id number] [place] [address] [place] Glucose [Mass/Vol] 275 mg/dL High 74-99 [facility] Comment on above: Order Comment: Speci men Type: BLOOD SPECIMENOrdering Facility: [facility] Address: [address] [address] Result Comment: The [employer] (ADA) provides guidance for cutoff [...] Standards of Medical Care in Diabetes 2016, [employer]. Diabetes Care. 2016.39(Suppl 1). Performed By: #### 2 4362-6, PROCAL ####[facility] LABORATORYCLIA [id number] [place] [address] [place] Phosphate [Mass/Vol] 3.6 mg/dL Normal 2.7-4.8 [facility] Comment on above: Order Comment: Crystal bustillo Type: BLOOD SPECIMENOrdering Facility: [facility] Address: [address] [place] [address] Performed By: #### 2 4362-6, PROCAL ####[facility] LABORATORYCLIA [id number] [place] [address] [place] Potassium [Moles/Vol] 4.4 mmol/L Normal 3.7-5.1 [facility] Comment on above: Order Comment: Crystal bustillo Type: BLOOD SPECIMENOrdering Facility: [facility] Address: [address] [place] [address] Performed By: #### 2 4362-6, PROCAL ####[facility] LABORATORYCLIA [id number] [place] [address] [place] Sodium [Moles/Vol] 134 mmol/L Low 136-144 [facility] Comment on above: Order Comment: Crystal bustillo Type: BLOOD SPECIMENOrdering Facility: [facility] Address: [address] [address] Performed By: #### 2 4362-6, PROCAL ####[facility] LABORATORYCLIA [id number] [place] [address] [place] Urea nitrogen [Mass/Vol] 48 mg/dL High 9-24 [facility] Comment on above: Order Comment: Speci men Type: BLOOD SPECIMENOrdering Facility: [facility] Address: [address] [place], [place] [phone] Performed By: #### 2 4362-6, PROCAL ####[facility] LABORATORYCLIA [id number] [address] OF [facility] XR CHEST 1V FRONTALon 2021 XR CHEST [...] 07/24/2021 RESULT: Lines, tubes, and devices: Overlying monitoring manager leads. Lungs and pleura: Small to moderate [...] vessels and increased fat within the mediastinum. Title Assistant: DUYEN Transcribe Date/Time: Jul 28 2021 1:08P Dictated by : CHELLE CHILD MD This examination was interpreted and the report reviewed and electronically signed by: CHELLE CHILD MD on Jul 28 2021 1:10PM EST [id number] Normal [facility] CBC panel Auto (Bld)on 07-27 Erythrocyte distribution width (RBC) [Ratio] 15.0 % Normal 11.5-15.0 [facility] Comment on above: Order Comment: Speci men Type: BLOOD SPECIMENOrdering Facility: [facility] Address: [address] [place] [phone] Performed By: #### 5 8410-2 ####[facility] LABORATORYCLIA [id number] [address] Hematocrit (Bld) [Volume fraction] 37.4 % Low 39.0-51.0 [facility] Comment on above: Order Comment: Speci men Type: BLOOD SPECIMENOrdering Facility: [facility] Address: [address] [place] [address] Performed By: #### 5 8410-2 ####[facility] LABORATORYCLIA [id number] [address] Hemoglobin (Bld) [Mass/Vol] 11.9 g/dL Low 13.0-17.0 [facility] Comment on above: Order Comment: Speci men Type: BLOOD SPECIMENOrdering Facility: [facility] Address: [address] [place] [address] Performed By: #### 5 8410-2 ####[facility] LABORATORYCLIA [id number] [address] MCH (RBC) [Entitic mass] 27.9 pg Normal 26.0-34.0 [facility] Comment on above: Order Comment: Speci men Type: BLOOD SPECIMENOrdering Facility: [facility] Address: [address] [place] [address] Performed By: #### 5 8410-2 ####[facility] LABORATORYCLIA [id number] [address] MCHC (RBC) [Mass/Vol] 31.8 g/dL Normal 30.5-36.0 [facility] Comment on above: Order Comment: Speci men Type: BLOOD SPECIMENOrdering Facility: [facility] Address: [address] [place] [address] Performed By: #### 5 8410-2 ####[facility] LABORATORYCLIA [id number] [address] OF [facility] MCV (RBC) [Entitic vol] 87.6 fL Normal 80.0-100.0 [facility] Comment on above: Order Comment: Speci men Type: BLOOD SPECIMENOrdering Facility: [facility] Address: [address] Performed By: #### 5 8410-2 ####[facility] LABORATORYCLIA [id number] [address] [place] Nucleated RBC (Bld) [#/Vol] 10*3/uL Normal <0.01 [facility] Comment on above: Order Comment: Speci men Type: BLOOD SPECIMENOrdering Facility: [facility] Address: [address] [place] [address] Performed By: #### 5 8410-2 ####[facility] LABORATORYCLIA [id number] [address] [place] Platelet mean volume (Bld) [Entitic vol] 10.0 fL Normal 9.0-12.7 [facility] Comment on above: Order Comment: Speci men Type: BLOOD SPECIMENOrdering Facility: [facility] Address: [address] [address] Performed By: #### 5 8410-2 ####[facility] LABORATORYCLIA [id number] [address] [place] Platelets (Bld) [#/Vol] 380 10*3/uL Normal 150-400 [facility] Comment on above: Order Comment: Speci men Type: BLOOD SPECIMENOrdering Facility: [facility] Address: [address] Performed By: #### 5 8410-2 ####[facility] LABORATORYCLIA [id number] [address] [place] RBC (Bld) [#/Vol] 4.27 10*6/uL Normal 4.20-6.00 [facility] Comment on above: Order Comment: Speci men Type: BLOOD SPECIMENOrdering Facility: [facility] Address: [address] Performed By: #### 5 8410-2 ####[facility] LABORATORYCLIA [id number] [place] [address] [facility] [place] WBC (Bld) [#/Vol] 10.89 10*3/uL Normal 3.70-11.00 [facility] Comment on above: Order Comment: Speci men Type: BLOOD SPECIMENOrdering Facility: [facility] Address: [facility] [address] [phone] Performed By: #### 5 8410-2 ####[facility] LABORATORYCLIA [id number] [place] [address] [facility] CONSULTon 07-27-2021 CONSULT HNO ID: [id number] Author: James Mai MD Service: Critical Care [...] last hemoglobin A1c and had seen an reinforced concrete inspector couple of years ago and has not [...] to the above notes by my medical technologist generalist physician, and/or my medical student, please note [...] (LYRICA) 10 (more content not included)... Normal [facility] Renal function 2000 panelon 07-27-2021 Albumin [Mass/Vol] 2.6 g/dL Low 3.9-4.9 [facility] Comment on above: Order Comment: Speci men Type: BLOOD SPECIMENOrdering Facility: [facility] Address: [address] [place] [address] Performed By: #### 2 4362-6 ####[facility] LABORATORYCLIA [id number] [place] [address] [place] [facility] Anion gap [Moles/Vol] 12 mmol/L Normal 9-18 [facility] Comment on above: Order Comment: Speci men Type: BLOOD SPECIMENOrdering Facility: [facility] Address: [address] [place] [address] Performed By: #### 2 4362-6 ####[facility] LABORATORYCLIA [id number] [place] [address] [place] Calcium [Mass/Vol] 8.7 mg/dL Normal 8.5-10.2 [facility] Comment on above: Order Comment: Speci men Type: BLOOD SPECIMENOrdering Facility: [facility] Address: [address] [place] [address] Performed By: #### 2 4362-6 ####[facility] LABORATORYCLIA [id number] [place] [address] [place] Chloride [Moles/Vol] 94 mmol/L Low 97-105 [facility] Comment on above: Order Comment: Speci men Type: BLOOD SPECIMENOrdering Facility: [facility] Address: [address] [place] [address] Performed By: #### 2 4362-6 ####[facility] LABORATORYCLIA [id number] [address] [place] CO2 [Moles/Vol] 28 mmol/L Normal 22-30 [facility] Comment on above: Order Comment: Speci men Type: BLOOD SPECIMENOrdering Facility: [facility] Address: [address] [place] [address] Performed By: #### 2 4362-6 ####[facility] LABORATORYCLIA [id number] [place] [address] [place] Creatinine [Mass/Vol] 1.31 mg/dL High 0.73-1.22 [facility] Comment on above: Order Comment: Speci men Type: BLOOD SPECIMENOrdering Facility: [facility] Address: [address] [place] [address] Performed By: #### 2 4362-6 ####[facility] LABORATORYCLIA [id number] [address] ESTIMATED GLOMERULAR FILTRATION RATE 61 mL/min/1.73m??? Normal >=60 [facility] Comment on above: Order Comment: Speci men Type: BLOOD SPECIMENOrdering Facility: [facility] Address: [address] [place] [address] Result Comment: Anu mated Glomerular Filtration Rate [...] actual GFR. Performed By: #### 2 4362-6 ####[facility] HOSPITALIA [id number] [place] [address] [place] Glucose [Mass/Vol] 161 mg/dL High 74-99 [facility] Comment on above: Order Comment: Crystal bustillo Type: BLOOD SPECIMENOrdering Facility: [facility] Address: [address] [phone] Result Comment: The [employer] (ADA) provides guidance for cutoff [...] Standards of Medical Care in Diabetes 2016, [place] [employer]. Diabetes Care. 2016.39(Suppl 1). Performed By: #### 2 4362-6 ####[facility] LABORATORYIA [id number] [place] [address] [place] Phosphate [Mass/Vol] 2.9 mg/dL Normal 2.7-4.8 [facility] Comment on above: Order Comment: Crystal bustillo Type: BLOOD SPECIMENOrdering Facility: [facility] [facility] Address: [address] [place] [address] Performed By: #### 2 4362-6 ####[facility] LABORATORYCLIA [id number] [address] OF [facility] Potassium [Moles/Vol] 4.2 mmol/L Normal 3.7-5.1 [facility] Comment on above: Order Comment: Speci men Type: BLOOD SPECIMENOrdering Facility: [facility] Address: [address] [place] [address] Performed By: #### 2 4362-6 ####[facility]ORATORYCLIA [id number] [address] STATES OF [facility] Sodium [Moles/Vol] 134 mmol/L Low 136-144 [facility] Comment on above: Order Comment: Speci men Type: BLOOD SPECIMENOrdering Facility: [facility] Address: [address] [place] [address] Performed By: #### 2 4362-6 ####[facility]ORATORYCLIA [id number] [address] [place] Urea nitrogen [Mass/Vol] 50 mg/dL High 9-24 [facility] Comment on above: Order Comment: Speci men Type: BLOOD SPECIMENOrdering Facility: [facility] Address: [address] [place] [address] Performed By: #### 2 4362-6 ####[facility] LABORATORYCLIA [id number] [address] OF [place] THERAPY NTon 07-27-2021 THERAPY NT HNO ID: [id number] Author: Mirian Grier, PT Service: Physical Therapy Author Type: Physical Therapist Type: Therapy (PT/OT/Speech/Resp) Filed: 07/27/2021 4:05 PM Note Text: Physical Therapy SERVICE DATE: 07/27/2021 SERVICE TIME: 1341 to 1401 ROOM: [place] [address] Recommended Discharge Disposition: Home PT (at Assisted [...] chair tra (more content not included)... Normal [facility] Bacteria Spec Resp Culton Bacteria identified Respiratory culture Nom (Unsp spec) ORGANISM ID: 1 Rare Yeast, not Cryptococcus neoformans GRAM STAIN: Rare Gram positive cocci in pairs Rare Yeast Rare Polymorphonuclear leukocytes Few Epithelial cells Abnormal [facility] Comment on above: Performed By: #### 3 2355-0 #### [facility] CLIA [id number] [address] [place] [address] [place] CBC panel Auto (Bld)on 07-26 Erythrocyte distribution width (RBC) [Ratio] 15.0 % Normal 11.5-15.0 [facility] Comment on above: Order Comment: Speci men Type: BLOOD SPECIMENOrdering Facility: [facility] Address: [address] [place] [address] Performed By: #### 9 4500-6 #### [facility] CLIA [id number] [address] Hematocrit (Bld) [Volume fraction] 35.2 % Low 39.0-51.0 [facility] Comment on above: Order Comment: Speci men Type: BLOOD SPECIMENOrdering Facility: [facility] Address: [address] [place] [address] Performed By: #### 9 4500-6 #### [facility] CLIA [id number] [address] Hemoglobin (Bld) [Mass/Vol] 11.1 g/dL Low 13.0-17.0 [facility] Comment on above: Order Comment: Speci men Type: BLOOD SPECIMENOrdering Facility: [facility] Address: [address] [place] [address] Performed By: #### 9 4500-6 #### [facility] CLIA [id number] [address] MCH (RBC) [Entitic mass] 27.9 pg Normal 26.0-34.0 [facility] Comment on above: Order Comment: Speci men Type: BLOOD SPECIMENOrdering Facility: [facility] Address: [address] [place] [address] Performed By: #### 9 4500-6 #### [facility] CLIA [id number] [address] OF [facility] MCHC (RBC) [Mass/Vol] 31.5 g/dL Normal 30.5-36.0 [facility] Comment on above: Order Comment: Speci men Type: BLOOD SPECIMENOrdering Facility: [facility] Address: [address] [place] [address] Performed By: #### 9 4500-6 #### [facility] CLIA [id number] [address] MCV (RBC) [Entitic vol] 88.4 fL Normal 80.0-100.0 [facility] Comment on above: Order Comment: Speci men Type: BLOOD SPECIMENOrdering Facility: [facility] Address: [address] Performed By: #### 9 4500-6 #### [facility] CLIA [id number] [address] [place] Nucleated RBC (Bld) [#/Vol] 10*3/uL Normal <0.01 [facility] Comment on above: Order Comment: Speci men Type: BLOOD SPECIMENOrdering Facility: [facility] Address: [address] [place] [address] Performed By: #### 9 4500-6 #### [facility] CLIA [id number] [address] [place] Platelet mean volume (Bld) [Entitic vol] 10.1 fL Normal 9.0-12.7 [facility] Comment on above: Order Comment: Speci men Type: BLOOD SPECIMENOrdering Facility: [facility] Address: [address] [place] [address] Performed By: #### 9 4500-6 #### [facility] CLIA [id number] [address] [place] Platelets (Bld) [#/Vol] 379 10*3/uL Normal 150-400 [facility] Comment on above: Order Comment: Speci men Type: BLOOD SPECIMENOrdering Facility: [facility] Address: [address] [place], [place] [address] Performed By: #### 9 4500-6 #### [facility] CLIA [id number] [address] [place] RBC (Bld) [#/Vol] 3.98 10*6/uL Low 4.20-6.00 [facility] Comment on above: Order Comment: Speci men Type: BLOOD SPECIMENOrdering Facility: [facility] Address: [address] [place] [address] Performed By: #### 9 4500-6 #### [facility] CLIA [id number] [address] [place] WBC (Bld) [#/Vol] 9.59 10*3/uL Normal 3.70-11.00 [facility] Comment on above: Order Comment: Speci men Type: BLOOD SPECIMENOrdering Facility: [facility] Address: [address] [place] [address] Performed By: #### 9 4500-6 #### [facility] CLIA [id number] 1 [place] [address] [place] NUTRITIONon 07-26-2021 NUTRITION HNO ID: [id number] Author: Federica Loving RD Service: Nutrition Therapy [...] Grams protein determined by: 1.2 - 1.5 g/kg;Chester body weight Care Plan: Change diet to CHO controlled Monitor and Evaluation: Meet greater than 75% of estimated needs;Monitor fluid/electrolyte balance;Monitor bowel function;Monitor labs, I/Os, vital signs, weight Discharge Recommendations: Diet Diet: CHO controlled ------ HPI: 65 yo male, LOS 5 days, presented with chest pain and cough for 2 weeks [employer], started on antibiotics, cultures noted, started on [...] kg (200 lb) Limited weight history in [facility] Usual Weight Obtained From: Chart Review [...] July 26, 2021 TIME: 8:[address] [facility] Renal function 2000 panelon 07-26-2021 Albumin [Mass/Vol] 2.8 g/dL Low 3.9-4.9 [facility] Comment on above: Order Comment: Speci men Type: BLOOD SPECIMENOrdering Facility: [facility] Address: [address] [place] [address] Performed By: #### 2 4362-6 ####[facility]ORATORYCLIA [id number] [place] [address] [place] Anion gap [Moles/Vol] 9 mmol/L Normal 9-18 [facility] Comment on above: Order Comment: Speci men Type: BLOOD SPECIMENOrdering Facility: [facility] Address: [address] [place] [address] Performed By: #### 2 4362-6 ####[facility]ATORYCLIA [id number] [place] [address] [place] Calcium [Mass/Vol] 8.9 mg/dL Normal 8.5-10.2 [facility] Comment on above: Order Comment: Speci men Type: BLOOD SPECIMENOrdering Facility: [facility] Address: [address] [place] [address] Performed By: #### 2 4362-6 ####[facility]ATORYCLIA [id number] [place] [address] [place] Chloride [Moles/Vol] 96 mmol/L Low 97-105 [facility] Comment on above: Order Comment: Speci men Type: BLOOD SPECIMENOrdering Facility: [facility] Address: [address] [place] [address] Performed By: #### 2 4362-6 ####[facility]ATORYCLIA [id number] [place] [address] [place] CO2 [Moles/Vol] 31 mmol/L High 22-30 [facility] Comment on above: Order Comment: Speci men Type: BLOOD SPECIMENOrdering Facility: [facility] Address: [address] [place] [address] Performed By: #### 2 4362-6 ####[facility]ORATORYCLIA [id number] [place] [address] [place] Creatinine [Mass/Vol] 1.31 mg/dL High 0.73-1.22 [facility] Comment on above: Order Comment: Crystal bustillo Type: BLOOD SPECIMENOrdering Facility: [facility] Address: [address] [place] [address] Performed By: #### 2 4362-6 ####[facility]ORATORYCLIA [id number] [address] [place] ESTIMATED GLOMERULAR FILTRATION RATE 61 mL/min/1.73m??? Normal >=60 [facility] Comment on above: Order Comment: Crystal bustillo Type: BLOOD SPECIMENOrdering Facility: [facility] Address: [address] [place] [address] Result Comment: Anu mated Glomerular Filtration Rate [...] actual GFR. Performed By: #### 2 4362-6 ####[facility]ATORYCLIA [id number] [address] [place] Glucose [Mass/Vol] 143 mg/dL High 74-99 [facility] Comment on above: Order Comment: Crystal bustillo Type: BLOOD SPECIMENOrdering Facility: [facility] Address: [address] [place] [address] Result Comment: The [employer] (ADA) provides guidance for cutoff [...] Standards of Medical Care in Diabetes 2016, [employer]. Diabetes Care. 2016.39(Suppl 1). Performed By: #### 2 4362-6 ####[facility]ORATORYCLIA [id number] [address] STATES OF [facility] Phosphate [Mass/Vol] 2.7 mg/dL Normal 2.7-4.8 [facility] Comment on above: Order Comment: Speci men Type: BLOOD SPECIMENOrdering Facility: [facility] Address: [address] [place] [address] Performed By: #### 2 4362-6 ####[facility]ATORYCLIA [id number] [address] [place] Potassium [Moles/Vol] 4.4 mmol/L Normal 3.7-5.1 [facility] Comment on above: Order Comment: Speci men Type: BLOOD SPECIMENOrdering Facility: [facility] Address: [address] [place] [address] Performed By: #### 2 4362-6 ####[facility]ORYCLIA [id number] [address] [place] [facility] Sodium [Moles/Vol] 136 mmol/L Normal 136-144 [facility] Comment on above: Order Comment: Speci men Type: BLOOD SPECIMENOrdering Facility: [facility] Address: [address] [place] [address] Performed By: #### 2 4362-6 ####[facility]ATORYCLIA [id number] [address] STATES OF [facility] Urea nitrogen [Mass/Vol] 49 mg/dL High 9-24 [facility] Comment on above: Order Comment: Speci men Type: BLOOD SPECIMENOrdering Facility: [facility] Address: [address] [place] [address] Performed By: #### 2 4362-6 ####[facility]ORYCLIA [id number] [address] OF [facility] CBC panel Auto (Bld)on 07-25 Erythrocyte distribution width (RBC) [Ratio] 15.1 % High 11.5-15.0 [facility] Comment on above: Order Comment: Speci men Type: BLOOD SPECIMENOrdering Facility: [facility] Address: [address] [place] [address] Performed By: #### 5 8410-2 ####[facility]ATORYCLIA [id number] [address] OF [facility] Hematocrit (Bld) [Volume fraction] 34.4 % Low 39.0-51.0 [facility] Comment on above: Order Comment: Speci men Type: BLOOD SPECIMENOrdering Facility: [facility] Address: [address] [place] [address] Performed By: #### 5 8410-2 ####[facility]ATORYCLIA [id number] [address] STATES OF [facility] Hemoglobin (Bld) [Mass/Vol] 10.8 g/dL Low 13.0-17.0 [facility] Comment on above: Order Comment: Speci men Type: BLOOD SPECIMENOrdering Facility: [facility] Address: [address] [place] [address] Performed By: #### 5 8410-2 ####[facility]ORYCLIA [id number] [address] [place] MCH (RBC) [Entitic mass] 28.3 pg Normal 26.0-34.0 [facility] Comment on above: Order Comment: Speci men Type: BLOOD SPECIMENOrdering Facility: [facility] Address: [address] [place] [address] Performed By: #### 5 8410-2 ####[facility]ORYCLIA [id number] [address] [place] MCHC (RBC) [Mass/Vol] 31.4 g/dL Normal 30.5-36.0 [facility] Comment on above: Order Comment: Speci men Type: BLOOD SPECIMENOrdering Facility: [facility] Address: [address] [place], [place] [address] Performed By: #### 5 8410-2 ####[facility]ATORYCLIA [id number] [address] MCV (RBC) [Entitic vol] 90.1 fL Normal 80.0-100.0 [facility] Comment on above: Order Comment: Speci men Type: BLOOD SPECIMENOrdering Facility: [facility] Address: [address] [place] [address] Performed By: #### 5 8410-2 ####[facility]ATORYCLIA [id number] [address] Nucleated RBC (Bld) [#/Vol] 10*3/uL Normal <0.01 [facility] Comment on above: Order Comment: Speci men Type: BLOOD SPECIMENOrdering Facility: [facility] Address: [address] [place] [address] Performed By: #### 5 8410-2 ####[facility]ATORYCLIA [id number] [address] Platelet mean volume (Bld) [Entitic vol] 10.1 fL Normal 9.0-12.7 [facility] Comment on above: Order Comment: Speci men Type: BLOOD SPECIMENOrdering Facility: [facility] Address: [address] [place] [address] Performed By: #### 5 8410-2 ####[facility]ATORYCLIA [id number] [address] Platelets (Bld) [#/Vol] 402 10*3/uL High 150-400 [facility] Comment on above: Order Comment: Speci men Type: BLOOD SPECIMENOrdering Facility: [facility] Address: [address] [place] [address] Performed By: #### 5 8410-2 ####[facility]ATORYCLIA [id number] [address] [place] RBC (Bld) [#/Vol] 3.82 10*6/uL Low 4.20-6.00 [facility] Comment on above: Order Comment: Speci men Type: BLOOD SPECIMENOrdering Facility: [facility] Address: [address] [place], [place] [address] Performed By: #### 5 8410-2 ####[facility]ATORYCLIA [id number] [place] [address] [facility] WBC (Bld) [#/Vol] 12.31 10*3/uL High 3.70-11.00 [facility] Comment on above: Order Comment: Speci men Type: BLOOD SPECIMENOrdering Facility: [facility] Address: [address] [place], [place] [address] Performed By: #### 5 8410-2 ####[facility]ATORYCLIA [id number] [address] CONSULT PROGon 07-25-2021 CONSULT PROG HNO ID: [id number] Author: Pita Lentz [facility] Service: Pharmacy Author Type: Pharmacist Type: Consult [...] Please contact pharmacy if there are questions. Pita Lentz [facility] Normal [facility] CONSULT PROG HNO ID: [id number] Author: Raji Lees MD Service: Infectious Disease [...] ulcer, residing in a [facility], presented to [facility] 07/21/2021 for cough, shortness of breath and [...] 0.75 g (more content not included)... Normal [facility] Gas and Carbon monoxide pane l (BldV)on 07-25-2021 Base excess Calc (BldV) [Moles/Vol] 7 mmol/L High 0-2 [facility] Comment on above: Order Comment: Speci men Type: VENOUS BLOOD SPECIMENOrdering Facility: [facility] Address: [address] [place] [address] Performed By: #### 2 4344-4 ####[facility]ATORYCLIA [id number] [address] [place] Body temperature 98.6 [degF] Normal [facility] Comment on above: Order Comment: Speci men Type: VENOUS BLOOD SPECIMENOrdering Facility: [facility] Address: [address] [place] [address] Performed By: #### 2 4344-4 ####[facility]ATORYCLIA [id number] [place] [address] [place] CALCIUM IONIZED, PH CORRECTED 1.17 mmol/L Normal 1.08-1.30 [facility] Comment on above: Order Comment: Speci men Type: VENOUS BLOOD SPECIMENOrdering Facility: [facility] Address: [address] [place] [address] Performed By: #### 2 4344-4 ####[facility]ATORYCLIA [id number] [place] [address] [place] Calcium.ionized (BldV) [Mass/Vol] 1.17 mmol/L Normal 1.08-1.30 [facility] Comment on above: Order Comment: Speci men Type: VENOUS BLOOD SPECIMENOrdering Facility: [facility] Address: [address] [place] [address] Performed By: #### 2 4344-4 ####[facility]ATORYCLIA [id number] [address] [place] Carboxyhemoglobin (BldV) [Mass fraction] <1.0 Normal 0.0-2.0 [facility] Comment on above: Order Comment: Speci men Type: VENOUS BLOOD SPECIMENOrdering Facility: [facility] Address: [address] [place] [address] Result Comment: Carb oxyhemoglobin Reference Range for Smokers: 2.0-8.0% Performed By: #### 2 4344-4 ####[facility]ATORYCLIA [id number] [address] [place] CO2 (BldV) [Partial pressure] 54 mm[Hg] Normal 42-55 [facility] Comment on above: Order Comment: Speci men Type: VENOUS BLOOD SPECIMENOrdering Facility: [facility] Address: [address] [place] [address] Performed By: #### 2 4344-4 ####[facility]ATORYCLIA [id number] [address] [place] CO2 [Moles/Vol] 30 mmol/L High 25-29 [facility] Comment on above: Order Comment: Speci men Type: VENOUS BLOOD SPECIMENOrdering Facility: [facility] Address: [address] [place] [address] Performed By: #### 2 4344-4 ####[facility]ATORYCLIA [id number] [place] [address] [place] Glucose [Mass/Vol] 198 mg/dL High 60-105 [facility] Comment on above: Order Comment: Speci men Type: VENOUS BLOOD SPECIMENOrdering Facility: [facility] Address: [address] [place] [address] Performed By: #### 2 4344-4 ####[facility]ATORYCLIA [id number] [address] [place] HCO3 (Bld) [Moles/Vol] 33 mmol/L High 24-[address] [facility] Comment on above: Order Comment: Speci men Type: VENOUS BLOOD SPECIMENOrdering Facility: [facility] Address: [address] [place] [address] Performed By: #### 2 4344-4 ####[facility]ATORYCLIA [id number] [address] [place] Hematocrit (Bld) [Volume fraction] 35.5 % Low 39.0-51.0 [facility] Comment on above: Order Comment: Speci men Type: VENOUS BLOOD SPECIMENOrdering Facility: [facility] Address: [address] [place] [address] Performed By: #### 2 4344-4 ####[facility]ATORYCLIA [id number] [address] [place] Hemoglobin (Bld) [Mass/Vol] 11.5 g/dL Low 13.0-17.0 [facility] Comment on above: Order Comment: Speci men Type: VENOUS BLOOD SPECIMENOrdering Facility: [facility] Address: [address] [place] [address] Performed By: #### 2 4344-4 ####[facility]ATORYCLIA [id number] [address] [place] Methemoglobin (Bld) [Mass fraction] % Normal 0.0-1.5 [facility] Comment on above: Order Comment: Speci men Type: VENOUS BLOOD SPECIMENOrdering Facility: [facility] Address: [address] [place] [address] Performed By: #### 2 4344-4 ####[facility]ORATORYCLIA [id number] [address] [place] O2 THERAPY Hi-Flow Nasal Cannula-Heated Normal [facility] Comment on above: Order Comment: Speci men Type: VENOUS BLOOD SPECIMENOrdering Facility: [facility] Address: [address] [address] Performed By: #### 2 4344-4 ####[facility] LABORATORYCLIA [id number] [address] [place] Oxygen (BldV) [Partial pressure] 38 mm[Hg] Normal 35-45 [facility] Comment on above: Order Comment: Speci men Type: VENOUS BLOOD SPECIMENOrdering Facility: [facility] Address: [address] [place] [address] Performed By: #### 2 4344-4 ####[facility]ATORYCLIA [id number] [address] [place] Oxygen saturation in Blood 67 % Normal 60-85 [facility] Comment on above: Order Comment: Speci men Type: VENOUS BLOOD SPECIMENOrdering Facility: [facility] Address: [address] [place] [address] Performed By: #### 2 4344-4 ####[facility]ATORYCLIA [id number] [address] [place] Oxyhemoglobin (BldV) [Mass fraction] 66 % Normal 60-85 [facility] Comment on above: Order Comment: Speci men Type: VENOUS BLOOD SPECIMENOrdering Facility: [facility] Address: [address] [place] [address] Performed By: #### 2 4344-4 ####[facility]ATORYCLIA [id number] [place] [address] [place] pH (BldV) 7.40 [pH] Normal 7.32-7.42 [facility] Comment on above: Order Comment: Speci men Type: VENOUS BLOOD SPECIMENOrdering Facility: [facility] Address: [address] [place] [address] Performed By: #### 2 4344-4 ####[facility]ATORYCLIA [id number] [address] [place] Potassium [Moles/Vol] 4.1 mmol/L Normal 3.5-5.0 [facility] Comment on above: Order Comment: Speci men Type: VENOUS BLOOD SPECIMENOrdering Facility: [facility] Address: [address] [place] [address] Performed By: #### 2 4344-4 ####[facility]ATORYCLIA [id number] [place] [address] [place] [facility] Sodium [Moles/Vol] 133 mmol/L Low 136-144 [facility] Comment on above: Order Comment: Speci men Type: VENOUS BLOOD SPECIMENOrdering Facility: [facility] Address: [address] [place] [address] Performed By: #### 2 4344-4 ####[facility]ORATORYCLIA [id number] [address] [place] HIGH SENSITIVITY TROPONIN To n 07-25-2021 HIGH SENSITIVITY MEDARDO 24 ng/L High <12 [facility] Comment on above: Order Comment: Echotracie bustillo Type: BLOOD SPECIMEN [facility]: [facility] Address: [address] [place] [address] Result Comment: When assessing risk for acute [...] MACE. Performed By: #### 5 8410-2 #### [facility] CLIA [id number] [address] [place] Renal function 2000 panelon 07-25-2021 Albumin [Mass/Vol] 2.9 g/dL Low 3.9-4.9 [facility] Comment on above: Order Comment: Crystal bustillo Type: BLOOD SPECIMENOrdering Facility: [facility] [facility] Address: [address] [place] [address] Performed By: #### 2 4362-6 ####[facility] LABORATORYCLIA [id number] [address] [place] Anion gap [Moles/Vol] 9 mmol/L Normal 9-18 [facility] Comment on above: Order Comment: Speci men Type: BLOOD SPECIMENOrdering Facility: [facility] Address: [address] [place] [address] Performed By: #### 2 4362-6 ####[facility]ORATORYCLIA [id number] [place] [address] [place] Calcium [Mass/Vol] 8.8 mg/dL Normal 8.5-10.2 [facility] Comment on above: Order Comment: Speci men Type: BLOOD SPECIMENOrdering Facility: [facility] Address: [address] [place] [address] Performed By: #### 2 4362-6 ####[facility]ORATORYCLIA [id number] [place] [address] [place] Chloride [Moles/Vol] 96 mmol/L Low 97-105 [facility] Comment on above: Order Comment: Speci men Type: BLOOD SPECIMENOrdering Facility: [facility] Address: [address] [place] [address] Performed By: #### 2 4362-6 ####[facility]ATORYCLIA [id number] [place] [address] [place] CO2 [Moles/Vol] 30 mmol/L Normal 22-30 [facility] Comment on above: Order Comment: Speci men Type: BLOOD SPECIMENOrdering Facility: [facility] Address: [address] [place] [address] Performed By: #### 2 4362-6 ####[facility]ORATORYCLIA [id number] [place] [address] [place] Creatinine [Mass/Vol] 1.52 mg/dL High 0.73-1.22 [facility] Comment on above: Order Comment: Speci men Type: BLOOD SPECIMENOrdering Facility: [facility] Address: [address] [place] [address] Performed By: #### 2 4362-6 ####[facility]ATORYCLIA [id number] [place] [address] [place] ESTIMATED GLOMERULAR FILTRATION RATE 51 mL/min/1.73m??? Low >=60 [facility] Comment on above: Order Comment: Crystal bustillo Type: BLOOD SPECIMENOrdering Facility: [facility] Address: [address] [place] [address] Result Comment: Anu mated Glomerular Filtration Rate [...] actual GFR. Performed By: #### 2 4362-6 ####[facility]ATORYCLIA [id number] [place] [address] [place] Glucose [Mass/Vol] 160 mg/dL High 74-99 [facility] Comment on above: Order Comment: Crystal bustillo Type: BLOOD SPECIMENOrdering Facility: [facility] Address: [address] [place] [address] Result Comment: The [employer] (ADA) provides guidance for cutoff [...] Standards of Medical Care in Diabetes 2016, [employer]. Diabetes Care. 2016.39(Suppl 1). Performed By: #### 2 4362-6 ####[facility]ORATORYCLIA [id number] [place] [id number] [place] Phosphate [Mass/Vol] 2.8 mg/dL Normal 2.7-4.8 [facility] Comment on above: Order Comment: Speci men Type: BLOOD SPECIMENOrdering Facility: [facility] Address: [address] [place] [address] Performed By: #### 2 4362-6 ####[facility]ATORYCLIA [id number] [address] [place] Potassium [Moles/Vol] 4.8 mmol/L Normal 3.7-5.1 [facility] Comment on above: Order Comment: Speci men Type: BLOOD SPECIMENOrdering Facility: [facility] Address: [address] [place] [address] Performed By: #### 2 4362-6 ####[facility]ORATORYCLIA [id number] [address] OF [facility] Sodium [Moles/Vol] 135 mmol/L Low 136-144 [facility] Comment on above: Order Comment: Speci men Type: BLOOD SPECIMENOrdering Facility: [facility] Address: [address] [place] [address] Performed By: #### 2 4362-6 ####[facility]ATORYCLIA [id number] [address] [place] Urea nitrogen [Mass/Vol] 55 mg/dL High 9-24 [facility] Comment on above: Order Comment: Speci men Type: BLOOD SPECIMENOrdering Facility: [facility] Address: [address] [place] [address] Performed By: #### 2 4362-6 ####[facility]ATORYCLIA [id number] [address] [place] ALLIED HEALTHon 07-24-2021 ALLIED HEALTH HNO ID: [id number] Author: RT Clement(R) Service: Radiology Author Type: [...] Clement(R) July 24, 2021 5:[address] [facility] CBC panel Auto (Bld)on 07-24 Erythrocyte distribution width (RBC) [Ratio] 15.1 % High 11.5-15.0 [facility] Comment on above: Order Comment: Speci men Type: BLOOD SPECIMENOrdering Facility: [facility] Address: [address] [place] [address] Performed By: #### 9 4500-6 #### [facility] CLIA [id number] [address] OF [facility] Hematocrit (Bld) [Volume fraction] 34.3 % Low 39.0-51.0 [facility] Comment on above: Order Comment: Speci men Type: BLOOD SPECIMENOrdering Facility: [facility] Address: [address] [place] [address] Performed By: #### 9 4500-6 #### [facility] CLIA [id number] [address] [place] Hemoglobin (Bld) [Mass/Vol] 10.4 g/dL Low 13.0-17.0 [facility] Comment on above: Order Comment: Speci men Type: BLOOD SPECIMENOrdering Facility: [facility] Address: [address] [place] [address] Performed By: #### 9 4500-6 #### [facility] CLIA [id number] [address] MCH (RBC) [Entitic mass] 28.0 pg Normal 26.0-34.0 [facility] Comment on above: Order Comment: Speci men Type: BLOOD SPECIMENOrdering Facility: [facility] Address: [address] Performed By: #### 9 4500-6 #### [facility] CLIA [id number] [address] MCHC (RBC) [Mass/Vol] 30.3 g/dL Low 30.5-36.0 [facility] Comment on above: Order Comment: Speci men Type: BLOOD SPECIMENOrdering Facility: [facility] Address: [address] [place] [address] Performed By: #### 9 4500-6 #### [facility] CLIA [id number] [address] [place] MCV (RBC) [Entitic vol] 92.5 fL Normal 80.0-100.0 [facility] Comment on above: Order Comment: Speci men Type: BLOOD SPECIMENOrdering Facility: [facility] Address: [address] [place] [address] Performed By: #### 9 4500-6 #### [facility] CLIA [id number] [address] [place] Nucleated RBC (Bld) [#/Vol] 10*3/uL Normal <0.01 [facility] Comment on above: Order Comment: Speci men Type: BLOOD SPECIMENOrdering Facility: [facility] Address: [address] [place] [address] Performed By: #### 9 4500-6 #### [facility] CLIA [id number] [address] Platelet mean volume (Bld) [Entitic vol] 10.5 fL Normal 9.0-12.7 [facility] Comment on above: Order Comment: Speci men Type: BLOOD SPECIMENOrdering Facility: [facility] Address: [address] [place] [address] Performed By: #### 9 4500-6 #### [facility] CLIA [id number] [address] [place] Platelets (Bld) [#/Vol] 342 10*3/uL Normal 150-400 [facility] Comment on above: Order Comment: Speci men Type: BLOOD SPECIMENOrdering Facility: [facility] Address: [address] [place] [address] Performed By: #### 9 4500-6 #### [facility] CLIA [id number] [address] RBC (Bld) [#/Vol] 3.71 10*6/uL Low 4.20-6.00 [facility] Comment on above: Order Comment: Speci men Type: BLOOD SPECIMENOrdering Facility: [facility] Address: [address] [place] [address] Performed By: #### 9 4500-6 #### [facility] CLIA [id number] [address] WBC (Bld) [#/Vol] 15.57 10*3/uL High 3.70-11.00 [facility] Comment on above: Order Comment: Speci men Type: BLOOD SPECIMENOrdering Facility: [facility] Address: [address] [place] [address] Performed By: #### 9 4500-6 #### [facility] CLIA [id number] [address] CONSULT PROGon 07-24-2021 CONSULT PROG HNO ID: [id number] Author: Ibeth Oneal RPh Service: Pharmacy Author [...] [place] questions[place] [phone]. Age: [age] year old Allergies: ALLERGIES Allergen [...] 25.8 (H) 07/23/2021 0044 21.0 (H) Ibeth Oneal alfonso Normal [facility] NT-proBNP SerPl-mCncon 04-09 -2022 Natriuretic peptide.B prohormone N-Terminal [Mass/Vol] 937 pg/mL High <125 [facility] Comment on above: Order Comment: Speci men Type: BLOOD SPECIMENOrdering Facility: [facility] Address: [address] [place] [address] Performed By: #### 2 4362-6, 43457-9 ####[facility]ATORYCLIA [id number] [address] [place] Renal function 2000 panelon 07-24-2021 Albumin [Mass/Vol] 2.5 g/dL Low 3.9-4.9 [facility] Comment on above: Order Comment: Speci men Type: BLOOD SPECIMENOrdering Facility: [facility] Address: [address] [place] [address] Performed By: #### 2 4362-6, 08602-9 ####[facility]ORYCLIA [id number] [address] STATES OF [facility] Anion gap [Moles/Vol] 12 mmol/L Normal 9-18 [facility] Comment on above: Order Comment: Speci men Type: BLOOD SPECIMENOrdering Facility: [facility] Address: [address] [place] [address] Performed By: #### 2 4362-6, 87172-7 ####[facility]ORYCLIA [id number] [place] [address] [place] Calcium [Mass/Vol] 8.5 mg/dL Normal 8.5-10.2 [facility] Comment on above: Order Comment: Speci men Type: BLOOD SPECIMENOrdering Facility: [facility] Address: [address] [place] [address] Performed By: #### 2 4362-6, 64378-5 ####[facility]ORYCLIA [id number] [place] [address] [place] Chloride [Moles/Vol] 93 mmol/L Low 97-105 [facility] Comment on above: Order Comment: Speci men Type: BLOOD SPECIMENOrdering Facility: [facility] Address: [address] [place] [address] Performed By: #### 2 4362-6, 48064-9 ####[facility]ORYCLIA [id number] [address] STATES OF [facility] CO2 [Moles/Vol] 24 mmol/L Normal 22-30 [facility] Comment on above: Order Comment: Speci men Type: BLOOD SPECIMENOrdering Facility: [facility] Address: [address] [place] [address] Performed By: #### 2 4362-6, 67554-5 ####[facility]ORYCLIA [id number] [address] STATES OF [facility] Creatinine [Mass/Vol] 1.58 mg/dL High 0.73-1.22 [facility] Comment on above: Order Comment: Speci men Type: BLOOD SPECIMENOrdering Facility: [facility] Address: [address] [place] [address] Performed By: #### 2 4362-6, 04897-5 ####[facility]ATORYCLIA [id number] [address] ESTIMATED GLOMERULAR FILTRATION RATE 49 mL/min/1.73m??? Low >=60 [facility] Comment on above: Order Comment: Speci men Type: BLOOD SPECIMENOrdering Facility: [facility] Address: [address] [place] [address] Result Comment: Anu mated Glomerular Filtration Rate [...] actual GFR. Performed By: #### 2 4362-6, 69345-5 ####[facility]ORYCLIA [id number] [address] [place] Glucose [Mass/Vol] 417 mg/dL High 74-99 [facility] Comment on above: Order Comment: Spectracie keny Type: BLOOD SPECIMENOrdering Facility: [facility] Address: [address] [place] [address] Result Comment: The [employer] Diabetes [employer] (ADA) provides guidance for cutoff [...] Standards of Medical Care in Diabetes 2016, [place] [employer]. Diabetes Care. 2016.39(Suppl 1). Performed By: #### 2 4362-6, 29365-9 ####[facility]ORYCLIA [id number] [place] [address] [place] Phosphate [Mass/Vol] 2.4 mg/dL Low 2.7-4.8 [facility] Comment on above: Order Comment: Crystal bustillo Type: BLOOD SPECIMENOrdering Facility: [facility] Address: [address] [place] [address] Performed By: #### 2 4362-6, 41975-8 ####[facility]ORYCLIA [id number] [place] [address] [place] Potassium [Moles/Vol] 5.4 mmol/L High 3.7-5.1 [facility] Comment on above: Order Comment: Crystal bustillo Type: BLOOD SPECIMENOrdering Facility: [facility] Address: [address] [place] [address] Performed By: #### 2 4362-6, 38868-0 ####[facility]ORYCLIA [id number] [place] [address] [place] Sodium [Moles/Vol] 129 mmol/L Low 136-144 [facility] Comment on above: Order Comment: Speci men Type: BLOOD SPECIMENOrdering Facility: [facility] Address: [address] [place] [address] Performed By: #### 2 4362-6, 72885-9 ####[facility]ORYCLIA [id number] [address] STATES OF [facility] Urea nitrogen [Mass/Vol] 55 mg/dL High 9-24 [facility] Comment on above: Order Comment: Speci men Type: BLOOD SPECIMENOrdering Facility: [facility] Address: [address] [place] [address] Performed By: #### 2 4362-6, 42392-4 ####[facility]ATORYCLIA [id number] [address] Vancomycin random [Mass/Vol] on 07-24-2021 Vancomycin [Mass/Vol] 25.8 ug/mL High 10.0-20.0 [facility] Comment on above: Order Comment: Speci men Type: BLOOD SPECIMENOrdering Facility: [facility] Address: [address] [place] [address] Result Comment: Refe rence ranges and high/low indicator flags are provided as general guidelines only. The treating physician must determine appropriate target levels/dosing based on the specific clinical situation. Performed By: #### 4 091-5 ####[facility]ATORYCLIA [id number] [address] OF [facility] XR CHEST 1V FRONTALon 2021 XR CHEST [...] described above. A follow-up exam is recommended. Title Assistant: DUYEN Transcribe Date/Time: Jul 24 2021 9:07A Dictated by : SAM MARCELINO MD This examination was interpreted and the report reviewed and electronically signed by: SAM MARCELINO MD on Jul 24 2021 9:09AM EST [id number] Normal [facility] CBC panel Auto (Bld)on 07-23 Erythrocyte distribution width (RBC) [Ratio] 15.2 % High 11.5-15.0 [facility] Comment on above: Order Comment: Crystal bustillo Type: BLOOD SPECIMEN [facility] Address: [address] [place] [address] Performed By: #### 5 8410-2 #### [facility] CLIA [id number] [address] STATES OF [facility] Hematocrit (Bld) [Volume fraction] 37.8 % Low 39.0-51.0 [facility] Comment on above: Order Comment: Crystal bustillo Type: BLOOD SPECIMEN [facility]: [facility] Address: [address] [place] [address] Performed By: #### 5 8410-2 #### [facility] CLIA [id number] [address] [place] Hemoglobin (Bld) [Mass/Vol] 11.5 g/dL Low 13.0-17.0 [facility] Comment on above: Order Comment: Crystal bustillo Type: BLOOD SPECIMEN [facility]: [facility] Address: [address] [place] [address] Performed By: #### 5 8410-2 #### [facility] CLIA [id number] [address] MCH (RBC) [Entitic mass] 28.0 pg Normal 26.0-34.0 [facility] Comment on above: Order Comment: Speci men Type: BLOOD SPECIMEN [facility] Address: [address] [place] [address] Performed By: #### 5 8410-2 #### [facility] CLIA [id number] [address] MCHC (RBC) [Mass/Vol] 30.4 g/dL Low 30.5-36.0 [facility] Comment on above: Order Comment: Speci men Type: BLOOD SPECIMEN [facility] Address: [address] [place] [address] Performed By: #### 5 8410-2 #### [facility] CLIA [id number] [address] MCV (RBC) [Entitic vol] 92.0 fL Normal 80.0-100.0 [facility] Comment on above: Order Comment: Speci men Type: BLOOD SPECIMEN [facility] Address: [address] [place] [address] Performed By: #### 5 8410-2 #### [facility] CLIA [id number] [address] Nucleated RBC (Bld) [#/Vol] 10*3/uL Normal <0.01 [facility] Comment on above: Order Comment: Speci men Type: BLOOD SPECIMEN [facility] Facility: [facility] Address: [address] [place] [address] Performed By: #### 5 8410-2 #### [facility] CLIA [id number] [address] Platelet mean volume (Bld) [Entitic vol] 9.9 fL Normal 9.0-12.7 [facility] Comment on above: Order Comment: Speci men Type: BLOOD SPECIMEN [facility] Address: [address] [place] [address] Performed By: #### 5 8410-2 #### [facility] CLIA [id number] [address] Platelets (Bld) [#/Vol] 359 10*3/uL Normal 150-400 [facility] Comment on above: Order Comment: Speci men Type: BLOOD SPECIMEN [facility] Address: [address] [place] [address] Performed By: #### 5 8410-2 #### [facility] CLIA [id number] [address] RBC (Bld) [#/Vol] 4.11 10*6/uL Low 4.20-6.00 [facility] Comment on above: Order Comment: Speci men Type: BLOOD SPECIMEN [facility] Address: [address] [place] [address] Performed By: #### 5 8410-2 #### [facility] CLIA [id number] [address] WBC (Bld) [#/Vol] 18.08 10*3/uL High 3.70-11.00 [facility] Comment on above: Order Comment: Speci men Type: BLOOD SPECIMEN [facility] Address: [address] [place] [address] Performed By: #### 5 8410-2 #### [facility] CLIA [id number] [address] CONSULTon 07-23-2021 CONSULT HNO ID: [id number] Author: Raji Lees MD Service: Infectious Disease [...] ulcer, residing in a [facility], presented to [facility] 07/21/2021 for cough, shortness of breath and [...] REVIEW O (more content not included)... Normal [facility] CONSULT PROGon 07-23-2021 CONSULT PROG HNO ID: [id number] Author: Isabel Gao RPh Service: Pharmacy Author [...] have any questions[place] [phone]. Age: [age] year old Allergies: ALLERGIES Allergen [...] Value 07/23/2021 0044 21.0 (H) Isabel Gao [facility] Normal [facility] Gas and Carbon monoxide pane l (BldV)on 07-23-2021 Base excess Calc (BldV) [Moles/Vol] 2 mmol/L Normal 0-2 [facility] Comment on above: Order Comment: Crystal bustillo Type: VENOUS BLOOD SPECIMENOrdering Facility: [facility] Address: [address] [place] [address] Performed By: #### 2 4344-4 ####[facility]ATORYCLIA [id number] [place] [address] [place] Body temperature 98.24 [degF] Normal [facility] Comment on above: Order Comment: Speci men Type: VENOUS BLOOD SPECIMENOrdering Facility: [facility] Address: [address] [place] [address] Performed By: #### 2 4344-4 ####[facility]ORYCLIA [id number] [address] [place] CALCIUM IONIZED, PH CORRECTED 1.06 mmol/L Low 1.08-1.30 [facility] Comment on above: Order Comment: Speci men Type: VENOUS BLOOD SPECIMENOrdering Facility: [facility] Address: [address] [place] [address] Performed By: #### 2 4344-4 ####[facility]ORYCLIA [id number] [place] [address] [place] Calcium.ionized (BldV) [Mass/Vol] 1.12 mmol/L Normal 1.08-1.30 [facility] Comment on above: Order Comment: Speci men Type: VENOUS BLOOD SPECIMENOrdering Facility: [facility] Address: [address] [place] [address] Performed By: #### 2 4344-4 ####[facility]ORYCLIA [id number] [address] [place] Carboxyhemoglobin (BldV) [Mass fraction] 1.6 % Normal 0.0-2.0 [facility] Comment on above: Order Comment: Speci men Type: VENOUS BLOOD SPECIMENOrdering Facility: [facility] Address: [address] [place] [address] Result Comment: Carb oxyhemoglobin Reference Range for Smokers: 2.0-8.0% Performed By: #### 2 4344-4 ####[facility]ORYCLIA [id number] [address] [place] CO2 (BldV) [Partial pressure] 62 mm[Hg] High 42-55 [facility] Comment on above: Order Comment: Speci men Type: VENOUS BLOOD SPECIMENOrdering Facility: [facility] Address: [address] [place] [address] Performed By: #### 2 4344-4 ####[facility]ORYCLIA [id number] [address] STATES OF [facility] CO2 [Moles/Vol] 27 mmol/L Normal 25-29 [facility] Comment on above: Order Comment: Speci men Type: VENOUS BLOOD SPECIMENOrdering Facility: [facility] Address: [address] [place] [address] Performed By: #### 2 4344-4 ####[facility]ORYCLIA [id number] [address] [place] CO2 adjusted to patient's actual temperature (BldV) [Partial pressure] 61 mmHg High 42-55 [facility] Comment on above: Order Comment: Speci men Type: VENOUS BLOOD SPECIMENOrdering Facility: [facility] Address: [address] [place] [address] Performed By: #### 2 4344-4 ####[facility]ORYCLIA [id number] [address] Glucose [Mass/Vol] mg/dL High 60-105 [facility] Comment on above: Order Comment: Speci men Type: VENOUS BLOOD SPECIMENOrdering Facility: [facility] Address: [address] [place] [address] Result Comment: Resu lt is above the technical range. Suggest that a glucose order be sent to the laboratory for testing. Performed By: #### 2 4344-4 ####[facility]ORYCLIA [id number] [address] [place] HCO3 (Bld) [Moles/Vol] 29 mmol/L High 24-[address] [facility] Comment on above: Order Comment: Speci men Type: VENOUS BLOOD SPECIMENOrdering Facility: [facility] Address: [address] [place] [address] Performed By: #### 2 4344-4 ####[facility]ORYCLIA [id number] [address] [place] Hematocrit (Bld) [Volume fraction] 33.5 % Low 39.0-51.0 [facility] Comment on above: Order Comment: Speci men Type: VENOUS BLOOD SPECIMENOrdering Facility: [facility] Address: [address] [address] Performed By: #### 2 4344-4 ####[facility] LABORATORYCLIA [id number] [address] Hemoglobin (Bld) [Mass/Vol] 10.8 g/dL Low 13.0-17.0 [facility] Comment on above: Order Comment: Speci men Type: VENOUS BLOOD SPECIMENOrdering Facility: [facility] Address: [address] [place] [address] Performed By: #### 2 4344-4 ####[facility] LABORATORYCLIA [id number] [address] Methemoglobin (Bld) [Mass fraction] % Normal 0.0-1.5 [facility] Comment on above: Order Comment: Speci men Type: VENOUS BLOOD SPECIMENOrdering Facility: [facility] Address: [address] [place] [address] Performed By: #### 2 4344-4 ####[facility] LABORATORYCLIA [id number] [address] O2 THERAPY Positive Normal [facility] Comment on above: Order Comment: Speci men Type: VENOUS BLOOD SPECIMENOrdering Facility: [facility] Address: [address] [place] [address] Performed By: #### 2 4344-4 ####[facility] LABORATORYCLIA [id number] [address] Oxygen (BldV) [Partial pressure] 52 mm[Hg] High 35-45 [facility] Comment on above: Order Comment: Speci men Type: VENOUS BLOOD SPECIMENOrdering Facility: [facility] Address: [address] [place] [address] Performed By: #### 2 4344-4 ####[facility] LABORATORYCLIA [id number] [address] Oxygen adjusted to patient's actual temperature (BldV) [Partial pressure] 52 mmHg High 35-45 [facility] Comment on above: Order Comment: Speci men Type: VENOUS BLOOD SPECIMENOrdering Facility: [facility] Address: [address] [place] [address] Performed By: #### 2 4344-4 ####[facility] LABORATORYCLIA [id number] [address] [place] Oxygen saturation in Blood 83 % Normal 60-85 [facility] Comment on above: Order Comment: Speci men Type: VENOUS BLOOD SPECIMENOrdering Facility: [facility] Address: [address] [place] [address] Performed By: #### 2 4344-4 ####[facility] LABORATORYCLIA [id number] [address] [place] Oxyhemoglobin (BldV) [Mass fraction] 81 % Normal 60-85 [facility] Comment on above: Order Comment: Speci men Type: VENOUS BLOOD SPECIMENOrdering Facility: [facility] Address: [address] [place] [address] Performed By: #### 2 4344-4 ####[facility] LABORATORYCLIA [id number] [address] [place] pH (BldV) 7.29 [pH] Low 7.32-7.42 [facility] Comment on above: Order Comment: Speci men Type: VENOUS BLOOD SPECIMENOrdering Facility: [facility] Address: [address] [place] [address] Performed By: #### 2 4344-4 ####[facility] LABORATORYCLIA [id number] [address] [place] pH adjusted to patient's actual temperature (BldV) 7.29 Low 7.32-7.42 [facility] Comment on above: Order Comment: Speci men Type: VENOUS BLOOD SPECIMENOrdering Facility: [facility] Address: [address] [place] [address] Performed By: #### 2 4344-4 ####[facility] LABORATORYCLIA [id number] [place] [address] [place] Potassium [Moles/Vol] 5.1 mmol/L High 3.5-5.0 [facility] Comment on above: Order Comment: Speci men Type: VENOUS BLOOD SPECIMENOrdering Facility: [facility] Address: [address] [place] [address] Performed By: #### 2 4344-4 ####[facility] LABORATORYCLIA [id number] [place] [address] [place] Sodium [Moles/Vol] 131 mmol/L Low 136-144 [facility] Comment on above: Order Comment: Speci men Type: VENOUS BLOOD SPECIMENOrdering Facility: [facility] Address: [address] [place] [address] Performed By: #### 2 4344-4 ####[facility] LABORATORYCLIA [id number] [address] [place] Renal function 2000 panelon 07-23-2021 Albumin [Mass/Vol] 3.0 g/dL Low 3.9-4.9 [facility] Comment on above: Order Comment: Speci men Type: BLOOD SPECIMENOrdering Facility: [facility] Address: [address] [place] [address] Performed By: #### 2 4362-6 ####[facility] LABORATORYCLIA [id number] [address] [place] Anion gap [Moles/Vol] 11 mmol/L Normal 9-18 [facility] Comment on above: Order Comment: Speci men Type: BLOOD SPECIMENOrdering Facility: [facility] Address: [address] [place] [address] Performed By: #### 2 4362-6 ####[facility] LABORATORYCLIA [id number] [address] [place] Calcium [Mass/Vol] 8.8 mg/dL Normal 8.5-10.2 [facility] Comment on above: Order Comment: Speci men Type: BLOOD SPECIMENOrdering Facility: [facility] Address: [address] [address] Performed By: #### 2 4362-6 ####[facility] LABORATORYCLIA [id number] [address] [place] Chloride [Moles/Vol] 95 mmol/L Low 97-105 [facility] Comment on above: Order Comment: Speci men Type: BLOOD SPECIMENOrdering Facility: [facility] Address: [address] [place] [address] Performed By: #### 2 4362-6 ####[facility] LABORATORYCLIA [id number] [address] [place] CO2 [Moles/Vol] 26 mmol/L Normal 22-30 [facility] Comment on above: Order Comment: Speci men Type: BLOOD SPECIMENOrdering Facility: [facility] Address: [address] [place] [address] Performed By: #### 2 4362-6 ####[facility] LABORATORYCLIA [id number] [address] STATES OF [facility] Creatinine [Mass/Vol] 1.74 mg/dL High 0.73-1.22 [facility] Comment on above: Order Comment: Speci men Type: BLOOD SPECIMENOrdering Facility: [facility] Address: [address] [place] [address] Performed By: #### 2 4362-6 ####[facility] LABORATORYCLIA [id number] [address] ESTIMATED GLOMERULAR FILTRATION RATE 43 mL/min/1.73m??? Low >=60 [facility] Comment on above: Order Comment: Speci men Type: BLOOD SPECIMENOrdering Facility: [facility] Address: [address] [place] [address] Result Comment: Anu mated Glomerular Filtration Rate [...] actual GFR. Performed By: #### 2 4362-6 ####[facility] LABORATORYCLIA [id number] [place] [address] [place] Glucose [Mass/Vol] 319 mg/dL High 74-99 [facility] Comment on above: Order Comment: Crystal bustillo Type: BLOOD SPECIMENOrdering Facility: [facility] Address: [address] [place] [address] Result Comment: The [employer] (ADA) provides guidance for cutoff [...] Standards of Medical Care in Diabetes 2016, [employer]. Diabetes Care. 2016.39(Suppl 1). Performed By: #### 2 4362-6 ####[facility] LABORATORYCLIA [id number] [place] [address] [place] Phosphate [Mass/Vol] 3.1 mg/dL Normal 2.7-4.8 [facility] Comment on above: Order Comment: Crystal bustillo Type: BLOOD SPECIMENOrdering Facility: [facility] Address: [address] [address] Performed By: #### 2 4362-6 ####[facility] LABORATORYCLIA [id number] [place] [address] [place] Potassium [Moles/Vol] 5.2 mmol/L High 3.7-5.1 [facility] Comment on above: Order Comment: Crystal bustillo Type: BLOOD SPECIMENOrdering Facility: [facility] Address: [address] [address] Performed By: #### 2 4362-6 ####[facility] LABORATORYCLIA [id number] [address] [place] [facility] Sodium [Moles/Vol] 132 mmol/L Low 136-144 [facility] Comment on above: Order Comment: Speci men Type: BLOOD SPECIMENOrdering Facility: [facility] Address: [address] [place] [address] Performed By: #### 2 4362-6 ####[facility] LABORATORYCLIA [id number] [address] [place] Urea nitrogen [Mass/Vol] 42 mg/dL High 9-24 [facility] Comment on above: Order Comment: Speci men Type: BLOOD SPECIMENOrdering Facility: [facility] Address: [address] [place] [address] Performed By: #### 2 4362-6 ####[facility] LABORATORYCLIA [id number] [address] Urinalysis complete panel (U )on 07-23-2021 Bilirubin Ql (U) Negative Normal Negative [facility] Comment on above: Order Comment: Speci men Type: URINE SPECIMENOrdering Facility: [facility] Address: [address] [place] [address] Performed By: #### 2 4356-8 ####[facility] LABORATORYCLIA [id number] [address] [place] Clarity (Unsp spec) Turbid Abnormal Clear [facility] Comment on above: Order Comment: Speci men Type: URINE SPECIMENOrdering Facility: [facility] Address: [address] [place] [address] Performed By: #### 2 4356-8 ####[facility] LABORATORYCLIA [id number] [address] Color (U) Yellow Normal yellow [facility] Comment on above: Order Comment: Speci men Type: URINE SPECIMENOrdering Facility: [facility] Address: [address] [place] [address] Performed By: #### 2 4356-8 ####[facility] LABORATORYCLIA [id number] [address] Glucose Test strip (U) [Mass/Vol] Trace Abnormal Negative [facility] Comment on above: Order Comment: Speci men Type: URINE SPECIMENOrdering Facility: [facility] Address: [address] [place] [address] Performed By: #### 2 4356-8 ####[facility] LABORATORYCLIA [id number] [address] Hemoglobin Ql (U) Negative Normal Negative [facility] Comment on above: Order Comment: Speci men Type: URINE SPECIMENOrdering Facility: [facility] Address: [address] [place] [address] Performed By: #### 2 4356-8 ####[facility] LABORATORYCLIA [id number] [address] Ketones Ql (U) Negative Normal Negative [facility] Comment on above: Order Comment: Speci men Type: URINE SPECIMENOrdering Facility: [facility] Address: [address] [place] [address] Performed By: #### 2 4356-8 ####[facility] LABORATORYCLIA [id number] [address] Leukocyte esterase Test strip Ql (U) Negative Normal Negative [facility] Comment on above: Order Comment: Speci men Type: URINE SPECIMENOrdering Facility: [facility] Address: [address] [address] Performed By: #### 2 4356-8 ####[facility] LABORATORYCLIA [id number] [address] Nitrite Ql (U) Negative Normal Negative [facility] Comment on above: Order Comment: Speci men Type: URINE SPECIMENOrdering Facility: [facility] Address: [facility] [address] Performed By: #### 2 4356-8 ####[facility] LABORATORYCLIA [id number] [address] pH (U) 5.0 [pH] Normal 5.0-8.0 [facility] Comment on above: Order Comment: Speci men Type: URINE SPECIMENOrdering Facility: [facility] Address: [address] [place] [address] Performed By: #### 2 4356-8 ####[facility] LABORATORYCLIA [id number] [address] Protein (U) [Mass/Vol] 1+ Abnormal Negative [facility] Comment on above: Order Comment: Speci men Type: URINE SPECIMENOrdering Facility: [facility] Address: [address] [place] [address] Performed By: #### 2 4356-8 ####[facility] FOR[facility] WAYNECLIA [id number] [address] RBC LM.HPF (Urine sed) [#/Area] 0-3 /HPF Normal 0-3 /HPF [facility] Comment on above: Order Comment: Speci men Type: URINE SPECIMENOrdering Facility: [facility] Address: [address] [place] [address] Performed By: #### 2 4356-8 ####[facility] LABORATORYCLIA [id number] [address] Specific gravity (U) [Rel density] 1.021 Normal 1.005-1.030 [facility] Comment on above: Order Comment: Speci men Type: URINE SPECIMENOrdering Facility: [facility] Address: [address] [place] [address] Performed By: #### 2 4356-8 ####[facility] LABORATORYCLIA [id number] [address] Urobilinogen Ql (U) Normal Normal Negative [facility] Comment on above: Order Comment: Speci men Type: URINE SPECIMENOrdering Facility: [facility] Address: [address] [place], [place] [address] Performed By: #### 2 4356-8 ####[facility] LABORATORYCLIA [id number] [address] WBC LM.HPF (Urine sed) [#/Area] 0-5 /HPF Normal 0-5 /HPF [facility] Comment on above: Order Comment: Speci men Type: URINE SPECIMENOrdering Facility: [facility] Address: [address] [place] [address] Performed By: #### 2 4356-8 ####[facility] LABORATORYCLIA [id number] [address] [place] Vancomycin random [Mass/Vol] on 07-23-2021 Vancomycin [Mass/Vol] 21.0 ug/mL High 10.0-20.0 [facility] Comment on above: Order Comment: Speci men Type: BLOOD SPECIMENOrdering Facility: [facility] Address: [address] [place] [address] Result Comment: Refe rence ranges and high/low indicator flags are provided as general guidelines only. The treating physician must determine appropriate target levels/dosing based on the specific clinical situation. Performed By: #### 4 091-5 ####[facility] LABORATORYCLIA [id number] [address] [place] Basic metabolic 2000 panelon 07-22-2021 Anion gap [Moles/Vol] 10 mmol/L Normal 9-18 [facility] Comment on above: Order Comment: Speci men Type: BLOOD SPECIMENOrdering Facility: [facility] Address: [address] [place] [address] Performed By: #### 3 2355-0 #### [facility] CLIA [id number] [address] STATES OF [facility] Calcium [Mass/Vol] 8.5 mg/dL Normal 8.5-10.2 [facility] Comment on above: Order Comment: Speci men Type: BLOOD SPECIMENOrdering Facility: [facility] Address: [address] [place] [address] Performed By: #### 3 2355-0 #### [facility] CLIA [id number] [address] [place] Chloride [Moles/Vol] 100 mmol/L Normal 97-105 [facility] Comment on above: Order Comment: Speci men Type: BLOOD SPECIMENOrdering Facility: [facility] Address: [address] [place] [address] Performed By: #### 3 2355-0 #### [facility] CLIA [id number] [address] [place] CO2 [Moles/Vol] 27 mmol/L Normal 22-30 [facility] Comment on above: Order Comment: Speci men Type: BLOOD SPECIMENOrdering Facility: [facility] Address: [address] [place] [address] Performed By: #### 3 2355-0 #### [facility] CLIA [id number] [address] Creatinine [Mass/Vol] 1.73 mg/dL High 0.73-1.22 [facility] Comment on above: Order Comment: Speci men Type: BLOOD SPECIMENOrdering Facility: [facility] Address: [address] [place] [address] Performed By: #### 3 2355-0 #### [facility] CLIA [id number] [address] ESTIMATED GLOMERULAR FILTRATION RATE 44 mL/min/1.73m??? Low >=60 [facility] Comment on above: Order Comment: Speci men Type: BLOOD SPECIMENOrdering Facility: [facility] Address: [address] [place] [address] Result Comment: Anu mated Glomerular Filtration Rate [...] GFR. Performed By: #### 3 2355-0 #### [facility] CLIA [id number] [address] [place] [address] [place] Glucose [Mass/Vol] 118 mg/dL High 74-99 [facility] Comment on above: Order Comment: Speci men Type: BLOOD SPECIMENOrdering Facility: [facility] Address: [address] [place] [address] Result Comment: The [employer] (ADA) provides guidance for cutoff [...] Standards of Medical Care in Diabetes 2016, [employer]. Diabetes Care. 2016.39(Suppl 1). Performed By: #### 3 2355-0 #### [facility] CLIA [id number] [address] [place] [address] [place] Potassium [Moles/Vol] 5.0 mmol/L Normal 3.7-5.1 [facility] Comment on above: Order Comment: Speci men Type: BLOOD SPECIMENOrdering Facility: [facility] Address: [address] [place] [address] Performed By: #### 3 2355-0 #### [facility] CLIA [id number] [address] [place] [address] [place] Sodium [Moles/Vol] 137 mmol/L Normal 136-144 [facility] Comment on above: Order Comment: Speci men Type: BLOOD SPECIMENOrdering Facility: [facility] Address: [address] [place] [address] Performed By: #### 3 2355-0 #### [facility] CLIA [id number] [address] [place] [facility] Urea nitrogen [Mass/Vol] 29 mg/dL High 9-24 [facility] Comment on above: Order Comment: Speci men Type: BLOOD SPECIMENOrdering Facility: [facility] Address: [address] [place] [address] Performed By: #### 3 2355-0 #### [facility] CLIA [id number] [address] OF [facility] CBC panel Auto (Bld)on 07-22 Erythrocyte distribution width (RBC) [Ratio] 15.5 % High 11.5-15.0 [facility] Comment on above: Order Comment: Speci men Type: BLOOD SPECIMEN [facility] Address: [address] [place] [address] Performed By: #### 5 8410-2 #### [facility] CLIA [id number] [address] Hematocrit (Bld) [Volume fraction] 41.8 % Normal 39.0-51.0 [facility] Comment on above: Order Comment: Speci men Type: BLOOD SPECIMEN [facility] Address: [address] [place] [address] Performed By: #### 5 8410-2 #### [facility] CLIA [id number] [address] STATES OF [facility] Hemoglobin (Bld) [Mass/Vol] 12.3 g/dL Low 13.0-17.0 [facility] Comment on above: Order Comment: Speci men Type: BLOOD SPECIMEN [facility] Address: [address] [place] [address] Performed By: #### 5 8410-2 #### [facility] CLIA [id number] [address] MCH (RBC) [Entitic mass] 28.3 pg Normal 26.0-34.0 [facility] Comment on above: Order Comment: Speci men Type: BLOOD SPECIMEN [facility] Address: [address] [address] Performed By: #### 5 8410-2 #### [facility] CLIA [id number] [address] MCHC (RBC) [Mass/Vol] 29.4 g/dL Low 30.5-36.0 [facility] Comment on above: Order Comment: Speci men Type: BLOOD SPECIMEN [facility] Address: [address] [place] [address] Performed By: #### 5 8410-2 #### [facility] CLIA [id number] [address] MCV (RBC) [Entitic vol] 96.1 fL Normal 80.0-100.0 [facility] Comment on above: Order Comment: Speci men Type: BLOOD SPECIMEN [facility] Address: [address] [place] [address] Performed By: #### 5 8410-2 #### [facility] CLIA [id number] [address] Nucleated RBC (Bld) [#/Vol] 10*3/uL Normal <0.01 [facility] Comment on above: Order Comment: Speci men Type: BLOOD SPECIMEN [facility] Address: [address] [place] [address] Performed By: #### 5 8410-2 #### [facility] CLIA [id number] [address] Platelet mean volume (Bld) [Entitic vol] 9.9 fL Normal 9.0-12.7 [facility] Comment on above: Order Comment: Speci men Type: BLOOD SPECIMEN [facility] Address: [address] [place] [address] Performed By: #### 5 8410-2 #### [facility] CLIA [id number] [address] [place] Platelets (Bld) [#/Vol] 357 10*3/uL Normal 150-400 [facility] Comment on above: Order Comment: Speci men Type: BLOOD SPECIMEN [facility] Address: [address] [address] Performed By: #### 5 8410-2 #### [facility] CLIA [id number] [address] STATES OF [facility] RBC (Bld) [#/Vol] 4.35 10*6/uL Normal 4.20-6.00 [facility] Comment on above: Order Comment: Speci men Type: BLOOD SPECIMEN [facility] Address: [address] [place] [address] Performed By: #### 5 8410-2 #### [facility] CLIA [id number] [address] OF [facility] WBC (Bld) [#/Vol] 15.27 10*3/uL High 3.70-11.00 [facility] Comment on above: Order Comment: Speci men Type: BLOOD SPECIMEN [facility] Address: [address] [place] [address] Performed By: #### 5 8410-2 #### [facility] CLIA [id number] [address] Gas and Carbon monoxide pane l (BldV)on 07-22-2021 BASE DEFICIT, VENOUS -1 mmol/L Normal -2-0 [facility] Comment on above: Order Comment: Speci men Type: BLOOD SPECIMEN [facility] Address: [facility] [address] [place] [address] Performed By: #### 5 8410-2 #### [facility] CLIA [id number] [address] Body temperature 97.88 [degF] Normal [facility] Comment on above: Order Comment: Speci men Type: BLOOD SPECIMEN [facility] Address: [address] [place] [address] Performed By: #### 5 8410-2 #### [facility] CLIA [id number] [address] OF [facility] CALCIUM IONIZED, PH CORRECTED 1.11 mmol/L Normal 1.08-1.30 [facility] Comment on above: Order Comment: Speci men Type: BLOOD SPECIMEN [facility] Address: [address] [place] [address] Performed By: #### 5 8410-2 #### [facility] CLIA [id number] [address] [place] Calcium.ionized (BldV) [Mass/Vol] 1.20 mmol/L Normal 1.08-1.30 [facility] Comment on above: Order Comment: Speci men Type: BLOOD SPECIMEN [facility] Address: [address] [place] [address] Performed By: #### 5 8410-2 #### [facility] CLIA [id number] [address] Carboxyhemoglobin (BldV) [Mass fraction] 1.3 % Normal 0.0-2.0 [facility] Comment on above: Order Comment: Speci men Type: BLOOD SPECIMEN [facility] Address: [address] [place] [address] Result Comment: Carb oxyhemoglobin Reference Range for Smokers: 2.0-8.0% Performed By: #### 5 8410-2 #### [facility] CLIA [id number] [address] [place] CO2 (BldV) [Partial pressure] 63 mm[Hg] High 42-55 [facility] Comment on above: Order Comment: Speci men Type: BLOOD SPECIMEN Ordering Facility: [facility] Address: [address] [place] [address] Performed By: #### 5 8410-2 #### [facility] CLIA [id number] [address] [place] CO2 [Moles/Vol] 26 mmol/L Normal 25-29 [facility] Comment on above: Order Comment: Speci men Type: BLOOD SPECIMEN Ordering Facility: [facility] Address: [facility] [place] [address] Performed By: #### 5 8410-2 #### [facility] CLIA [id number] [address] OF [facility] CO2 adjusted to patient's actual temperature (BldV) [Partial pressure] 62 mmHg High 42-55 [facility] Comment on above: Order Comment: Speci men Type: BLOOD SPECIMEN Ordering Facility: [facility] Address: [address] [place] [address] Performed By: #### 5 8410-2 #### [facility] CLIA [id number] [address] [place] Glucose [Mass/Vol] 198 mg/dL High 60-105 [facility] Comment on above: Order Comment: Speci men Type: BLOOD SPECIMEN Ordering Facility: [facility] Address: [address] [place] [address] Performed By: #### 5 8410-2 #### [facility] CLIA [id number] [address] [place] HCO3 (Bld) [Moles/Vol] 27 mmol/L Normal 24-[address] [facility] Comment on above: Order Comment: Speci men Type: BLOOD SPECIMEN Ordering Facility: [facility] Address: [address] [place] [address] Performed By: #### 5 8410-2 #### [facility] CLIA [id number] [address] [place] Hematocrit (Bld) [Volume fraction] 35.2 % Low 39.0-51.0 [facility] Comment on above: Order Comment: Speci men Type: BLOOD SPECIMEN Ordering Facility: [facility] Address: [address] [place] [address] Performed By: #### 5 8410-2 #### [facility] CLIA [id number] [address] [place] Hemoglobin (Bld) [Mass/Vol] 11.4 g/dL Low 13.0-17.0 [facility] Comment on above: Order Comment: Speci men Type: BLOOD SPECIMEN Ordering Facility: [facility] Address: [address] [place] [address] Performed By: #### 5 8410-2 #### [facility] CLIA [id number] [address] [place] LITERS 15 Liters/min Normal [facility] Comment on above: Order Comment: Speci men Type: BLOOD SPECIMEN Ordering Facility: [facility] Address: [facility] [place] [address] Performed By: #### 5 8410-2 #### [facility] CLIA [id number] [address] [place] Methemoglobin (Bld) [Mass fraction] % Normal 0.0-1.5 [facility] Comment on above: Order Comment: Speci men Type: BLOOD SPECIMEN Ordering Facility: [facility] Address: [address] [place] [address] Performed By: #### 5 8410-2 #### [facility] CLIA [id number] [address] O2 THERAPY Venti Mask Normal [facility] Comment on above: Order Comment: Speci men Type: BLOOD SPECIMEN Ordering Facility: [facility] Address: [address] [place] [address] Performed By: #### 5 8410-2 #### [facility] CLIA [id number] [address] [place] Oxygen (BldV) [Partial pressure] 57 mm[Hg] High 35-45 [facility] Comment on above: Order Comment: Speci men Type: BLOOD SPECIMEN Ordering Facility: [facility] Address: [address] [place] [address] Performed By: #### 5 8410-2 #### [facility] CLIA [id number] [address] [place] Oxygen adjusted to patient's actual temperature (BldV) [Partial pressure] 56 mmHg High 35-45 [facility] Comment on above: Order Comment: Speci men Type: BLOOD SPECIMEN Ordering Facility: [facility] Address: [address] [place] [address] Performed By: #### 5 8410-2 #### [facility] CLIA [id number] [address] [place] Oxygen saturation in Blood 88 % High 60-85 [facility] Comment on above: Order Comment: Speci men Type: BLOOD SPECIMEN Ordering Facility: [facility] Address: [address] [place] [address] Performed By: #### 5 8410-2 #### [facility] CLIA [id number] [address] Oxyhemoglobin (BldV) [Mass fraction] 86 % High 60-85 [facility] Comment on above: Order Comment: Speci men Type: BLOOD SPECIMEN Ordering Facility: [facility] Address: [address] [place] [address] Performed By: #### 5 8410-2 #### [facility] CLIA [id number] [address] [place] pH (BldV) 7.26 [pH] Low 7.32-7.42 [facility] Comment on above: Order Comment: Speci men Type: BLOOD SPECIMEN Ordering Facility: [facility] Address: [address] [place] [address] Performed By: #### 5 8410-2 #### [facility] CLIA [id number] [address] [place] pH adjusted to patient's actual temperature (BldV) 7.26 Low 7.32-7.42 [facility] Comment on above: Order Comment: Speci men Type: BLOOD SPECIMEN Ordering Facility: [facility] Address: [address] [place] [address] Performed By: #### 5 8410-2 #### [facility] CLIA [id number] 1 [place] [address] [place] Potassium [Moles/Vol] 4.9 mmol/L Normal 3.5-5.0 [facility] Comment on above: Order Comment: Speci men Type: BLOOD SPECIMEN Ordering Facility: [facility] Address: [address] [place] [address] Performed By: #### 5 8410-2 #### [facility] CLIA [id number] 1 [place] [address] [place] Sodium [Moles/Vol] 136 mmol/L Normal 136-144 [facility] Comment on above: Order Comment: Speci men Type: BLOOD SPECIMEN Ordering Facility: [facility] Address: [address] [place] [address] Performed By: #### 5 8410-2 #### [facility] CLIA [id number] [address] [place] [address] [place] Legionella Ag Ur Qlon 2021 Legionella sp Ag Ql (U) Negative Normal Negative [facility] Comment on above: Order Comment: Speci men Type: URINE SPECIMENOrdering Facility: [facility] Address: [address] [place] [address] Performed By: #### 3 2781-7 ####[facility] [id number] [place] [address] [place] Magnesium SerPl-mCncon 07-22 Magnesium [Mass/Vol] 2.0 mg/dL Normal 1.7-2.3 [facility] Comment on above: Order Comment: Speci men Type: BLOOD SPECIMENOrdering Facility: [facility] Address: [address] [place] [address] Performed By: #### 3 2355-0 #### [facility] CLIA [id number] [address] [place] [address] [place] Phosphate SerPl-mCncon 07-22 Phosphate [Mass/Vol] 4.2 mg/dL Normal 2.7-4.8 [facility] Comment on above: Order Comment: Speci men Type: BLOOD SPECIMENOrdering Facility: [facility] Address: [address] [place] [id number] Performed By: #### 3 2355-0 #### [facility] CLIA [id number] [address] [place] STREPTOCOCCUS PNEUMONIAE AGo n 07-22-2021 STREPTOCOCCUS PNEUMONIAE AG STREP PNEUMO AG RESULT: Negative for Streptococcus pneumoniae antigen. Presumptive negative for pneumococcal pneumonia, suggesting no current or recent pneumococcal infection. Infection due to S.pneumoniae cannot be ruled out since the antigen present in the sample may be below the detection limit of the test. Normal [facility] Comment on above: Performed By: #### 5 8410-2 #### [facility] CLIA [id number] [address] [place] ALLIED HEALTHon 07-21-2021 ALLIED HEALTH HNO ID: [id number] Author: RT Jasmeet(R) Service: Radiology Author Type: [...] PERIPHERAL IV DATA: Inpatient - refer to [facility] documentation RADIOLOGY DEPARTMENT: CT; Exam(s) Completed: PE Study SIGNATURE: Kilo Buitrago, RT(R) PATIENT NAME: James Reyes DATE: July 21, 2021 TIME: 12:[address] [facility] Bacteria Bld Culton 07-22-19 22 Bacteria identified Cx Nom (Bld) CULTURE, BLOOD: No growth [address] [facility] Comment on above: Performed By: #### 6 00-7 #### [facility] CLIA [id number] [address] Bacteria identified Cx Nom (Bld) CULTURE, BLOOD: No growth [address] [facility] Comment on above: Performed By: #### 6 00-7 #### [facility] CLIA [id number] [address] OF [facility] CBC W Auto Differential pane l (Bld)on 07-21-2021 Basophils (Bld) [#/Vol] 0.04 10*3/uL Normal <0.11 [facility] Comment on above: Order Comment: Speci men Type: BLOOD SPECIMEN Ordering Facility: [facility] Address: [address] [place] [address] Performed By: #### 5 7021-8 #### [facility] CLIA [id number] [address] Basophils/100 WBC (Bld) 0.3 % Normal [facility] Comment on above: Order Comment: Speci men Type: BLOOD SPECIMEN Ordering Facility: [facility] Address: [address] [place] [address] Performed By: #### 5 7021-8 #### [facility] CLIA [id number] [address] Differential cell count method Nom (Bld) Auto Normal [facility] Comment on above: Order Comment: Speci men Type: BLOOD SPECIMEN Ordering Facility: [facility] Address: [address] [place] [address] Performed By: #### 5 7021-8 #### [facility] CLIA [id number] [address] Eosinophils (Bld) [#/Vol] 0.12 10*3/uL Normal <0.46 [facility] Comment on above: Order Comment: Speci men Type: BLOOD SPECIMEN Ordering Facility: [facility] Address: [address] [place] [address] Performed By: #### 5 7021-8 #### [facility] CLIA [id number] [address] Eosinophils/100 WBC (Bld) 0.9 % Normal [facility] Comment on above: Order Comment: Speci men Type: BLOOD SPECIMEN Ordering Facility: [facility] Address: [address] [place] [address] Performed By: #### 5 7021-8 #### [facility] CLIA [id number] [address] Erythrocyte distribution width (RBC) [Ratio] 15.7 % High 11.5-15.0 [facility] Comment on above: Order Comment: Speci men Type: BLOOD SPECIMEN Ordering Facility: [facility] Address: [address] [place] [address] Performed By: #### 5 7021-8 #### [facility] CLIA [id number] [address] Hematocrit (Bld) [Volume fraction] 41.8 % Normal 39.0-51.0 [facility] Comment on above: Order Comment: Speci men Type: BLOOD SPECIMEN Ordering Facility: [facility] Address: [address] [place] [address] Performed By: #### 5 7021-8 #### [facility] CLIA [id number] [address] [place] Hemoglobin (Bld) [Mass/Vol] 13.0 g/dL Normal 13.0-17.0 [facility] Comment on above: Order Comment: Speci men Type: BLOOD SPECIMEN Ordering Facility: [facility] Address: [address] [place] [address] Performed By: #### 5 7021-8 #### [facility] CLIA [id number] [address] IMMATURE GRAN % 0.5 % Normal [facility] Comment on above: Order Comment: Speci men Type: BLOOD SPECIMEN Ordering Facility: [facility] Address: [address] [place] [address] Performed By: #### 5 7021-8 #### [facility] CLIA [id number] [address] IMMATURE GRAN ABS 0.07 k/uL Normal <0.10 [facility] Comment on above: Order Comment: Speci men Type: BLOOD SPECIMEN Ordering Facility: [facility] Address: [address] [place] [address] Performed By: #### 5 7021-8 #### [facility] CLIA [id number] [address] [place] Lymphocytes (Bld) [#/Vol] 0.64 10*3/uL Low 1.00-4.00 [facility] Comment on above: Order Comment: Speci men Type: BLOOD SPECIMEN Ordering Facility: [facility] Address: [address] [place] [address] Performed By: #### 5 7021-8 #### [facility] CLIA [id number] [address] Lymphocytes/100 WBC (Bld) 4.7 % Normal [facility] Comment on above: Order Comment: Speci men Type: BLOOD SPECIMEN Ordering Facility: [facility] Address: [address] [place] [address] Performed By: #### 5 7021-8 #### [facility] CLIA [id number] [address] MCH (RBC) [Entitic mass] 28.2 pg Normal 26.0-34.0 [facility] Comment on above: Order Comment: Speci men Type: BLOOD SPECIMEN Ordering Facility: [facility] Address: [address] [place] [address] Performed By: #### 5 7021-8 #### [facility] CLIA [id number] [address] MCHC (RBC) [Mass/Vol] 31.1 g/dL Normal 30.5-36.0 [facility] Comment on above: Order Comment: Speci men Type: BLOOD SPECIMEN Ordering Facility: [facility] Address: [address] [place] [address] Performed By: #### 5 7021-8 #### [facility] CLIA [id number] [address] MCV (RBC) [Entitic vol] 90.7 fL Normal 80.0-100.0 [facility] Comment on above: Order Comment: Speci men Type: BLOOD SPECIMEN Ordering Facility: [facility] Address: [address] [place] [address] Performed By: #### 5 7021-8 #### [facility] CLIA [id number] [address] Monocytes (Bld) [#/Vol] 0.92 10*3/uL High <0.87 [facility] Comment on above: Order Comment: Speci men Type: BLOOD SPECIMEN Ordering Facility: [facility] Address: [address] [place] [address] Performed By: #### 5 7021-8 #### [facility] CLIA [id number] [address] [place] [address] [place] Monocytes/100 WBC (Bld) 6.7 % Normal [facility] Comment on above: Order Comment: Speci men Type: BLOOD SPECIMEN Ordering Facility: [facility] Address: [address] [place] [address] Performed By: #### 5 7021-8 #### [facility] CLIA [id number] [address] [place] Neutrophils (Bld) [#/Vol] 11.89 10*3/uL High 1.45-7.50 [facility] Comment on above: Order Comment: Speci men Type: BLOOD SPECIMEN Ordering Facility: [facility] Address: [address] [place] [address] Performed By: #### 5 7021-8 #### [facility] CLIA [id number] [address] Neutrophils/100 WBC (Bld) 86.9 % Normal [facility] Comment on above: Order Comment: Speci men Type: BLOOD SPECIMEN Ordering Facility: [facility] Address: [address] [place] [address] Performed By: #### 5 7021-8 #### [facility] CLIA [id number] [address] [place] Nucleated RBC (Bld) [#/Vol] 10*3/uL Normal <0.01 [facility] Comment on above: Order Comment: Speci men Type: BLOOD SPECIMEN Ordering Facility: [facility] Address: [address] [place] [address] Performed By: #### 5 7021-8 #### [facility] CLIA [id number] [address] [place] Nucleated RBC/100 WBC (Bld) [Ratio] 0.0 /[address] [facility] Comment on above: Order Comment: Speci men Type: BLOOD SPECIMEN Ordering Facility: [facility] Address: [address] [place] [address] Performed By: #### 5 7021-8 #### [facility] CLIA [id number] [address] [place] Platelet mean volume (Bld) [Entitic vol] 10.1 fL Normal 9.0-12.7 [facility] Comment on above: Order Comment: Speci men Type: BLOOD SPECIMEN Ordering Facility: [facility] Address: [address] [place] [address] Performed By: #### 5 7021-8 #### [facility] CLIA [id number] [address] [place] Platelets (Bld) [#/Vol] 407 10*3/uL High 150-400 [facility] Comment on above: Order Comment: Speci men Type: BLOOD SPECIMEN Ordering Facility: [facility] Address: [address] [place] [address] Performed By: #### 5 7021-8 #### [facility] CLIA [id number] [address] RBC (Bld) [#/Vol] 4.61 10*6/uL Normal 4.20-6.00 [facility] Comment on above: Order Comment: Speci men Type: BLOOD SPECIMEN Ordering Facility: [facility] Address: [address] [place] [address] Performed By: #### 5 7021-8 #### [facility] CLIA [id number] [address] [place] WBC (Bld) [#/Vol] 13.68 10*3/uL High 3.70-11.00 [facility] Comment on above: Order Comment: Speci men Type: BLOOD SPECIMEN Ordering Facility: [facility] Address: [address] [place] [address] Performed By: #### 5 7021-8 #### [facility] CLIA [id number] [address] CONSULTon 07-21-2021 CONSULT HNO ID: [id number] Author: Whitney Johnson DO Service: Critical Care [...] not on home oxygen who presents from [facility] for hypoxia per EMS was 80% [...] mucous membr (more content not included)... Normal [facility] CONSULT PROGon 07-21-2021 CONSULT PROG HNO ID: [id number] Author: Nancy Gong RPh Service: Pharmacy Author [...] questions, [place] [phone]. Addendum: July 22, 2021 2:47 PM Patient's [...] the 4th dose of vancomycin. -Nancy Gong [facility] Age: [age] year old Allergies: ALLERGIES Allergen [...] Levels: No results found for: VESNA Moran, [facility] Normal [facility] CT CHEST W IVCON PEon 2021 CT CHEST W IVCON PE * * *Final Report* * * DATE OF EXAM: Jul 21 2021 12:06PM [facility] 0540 - CT CHEST [...] findings. Upper abdomen: No significant additional findings. Mechanical Technician (topogram) images: No significant additional findings. IMPRESSION: [...] diameter. 8. Nonunion of median sternotomy defect. Title Assistant: PSCB Transcribe Date/Time: Jul 21 2021 12:29P Dictated by : CHELLE CHILD MD This examination was interpreted and the report reviewed and electronically signed by: CHELLE CHILD MD on Jul 21 2021 12:41PM EST [id number] Normal [facility] Comprehensive metabolic 2000 panelon 07-21-2021 Albumin [Mass/Vol] 3.3 g/dL Low 3.9-4.9 [facility] Comment on above: Order Comment: Speci men Type: BLOOD SPECIMEN Ordering Facility: [facility] Address: [address] [place] [address] Performed By: #### 5 8410-2 #### [facility] CLIA [id number] [address] ALP [Catalytic activity/Vol] 88 U/L Normal 38-113 [facility] Comment on above: Order Comment: Speci men Type: BLOOD SPECIMEN Ordering Facility: [facility] Address: [address] [place] [address] Performed By: #### 5 8410-2 #### [facility] CLIA [id number] [address] [place] [facility] ALT With P-5'-P [Catalytic activity/Vol] 10 U/L Normal 10-54 [facility] Comment on above: Order Comment: Speci men Type: BLOOD SPECIMEN Ordering Facility: [facility] Address: [address] [place] [address] Performed By: #### 5 8410-2 #### [facility] CLIA [id number] [address] Anion gap [Moles/Vol] 12 mmol/L Normal 9-18 [facility] Comment on above: Order Comment: Speci men Type: BLOOD SPECIMEN Ordering Facility: [facility] Address: [address] [place] [address] Performed By: #### 5 8410-2 #### [facility] CLIA [id number] [address] [place] AST With P-5'-P [Catalytic activity/Vol] 10 U/L Low 14-40 [facility] Comment on above: Order Comment: Speci men Type: BLOOD SPECIMEN Ordering Facility: [facility] Address: [address] [place] [address] Performed By: #### 5 8410-2 #### [facility] CLIA [id number] [address] [place] Bilirubin [Mass/Vol] 0.3 mg/dL Normal 0.2-1.3 [facility] Comment on above: Order Comment: Speci men Type: BLOOD SPECIMEN Ordering Facility: [facility] Address: [address] [place] [address] Performed By: #### 5 8410-2 #### [facility] CLIA [id number] [address] [place] Calcium [Mass/Vol] 9.2 mg/dL Normal 8.5-10.2 [facility] Comment on above: Order Comment: Speci men Type: BLOOD SPECIMEN Ordering Facility: [facility] Address: [address] [place] [address] Performed By: #### 5 8410-2 #### [facility] CLIA [id number] [address] [place] Chloride [Moles/Vol] 101 mmol/L Normal 97-105 [facility] Comment on above: Order Comment: Speci men Type: BLOOD SPECIMEN Ordering Facility: [facility] Address: [address] [place] [address] Performed By: #### 5 8410-2 #### [facility] CLIA [id number] [address] [place] CO2 [Moles/Vol] 27 mmol/L Normal 22-30 [facility] Comment on above: Order Comment: Speci men Type: BLOOD SPECIMEN Ordering Facility: [facility] Address: [address] [place] [address] Performed By: #### 5 8410-2 #### [facility] CLIA [id number] [address] [place] [facility] Creatinine [Mass/Vol] 1.52 mg/dL High 0.73-1.22 [facility] Comment on above: Order Comment: Crystal bustillo Type: BLOOD SPECIMEN Ordering Facility: [facility] Address: [address] [place] [address] Performed By: #### 5 8410-2 #### [facility] CLIA [id number] [address] [place] ESTIMATED GLOMERULAR FILTRATION RATE 51 mL/min/1.73m??? Low >=60 [facility] Comment on above: Order Comment: Crystal bustillo Type: BLOOD SPECIMEN Ordering Facility: [facility] Address: [address] [place] [address] Result Comment: Anu mated Glomerular Filtration Rate [...] GFR. Performed By: #### 5 8410-2 #### [facility] CLIA [id number] [address] Glucose [Mass/Vol] 61 mg/dL Low 74-99 [facility] Comment on above: Order Comment: Crystal bustillo Type: BLOOD SPECIMEN Ordering Facility: [facility] Address: [address] [place] [address] Result Comment: The [employer] (ADA) provides guidance for cutoff [...] Standards of Medical Care in Diabetes 2016, [employer]. Diabetes Care. 2016.39(Suppl 1). Performed By: #### 5 8410-2 #### [facility] CLIA [id number] [address] [place] Potassium [Moles/Vol] 4.5 mmol/L Normal 3.7-5.1 [facility] Comment on above: Order Comment: Speci men Type: BLOOD SPECIMEN Ordering Facility: [facility] Address: [address] [place] [address] Performed By: #### 5 8410-2 #### [facility] CLIA [id number] [address] [place] Protein [Mass/Vol] 7.0 g/dL Normal 6.3-8.0 [facility] Comment on above: Order Comment: Speci men Type: BLOOD SPECIMEN Ordering Facility: [facility] Address: [address] [place] [address] Performed By: #### 5 8410-2 #### [facility] CLIA [id number] [address] [place] Sodium [Moles/Vol] 140 mmol/L Normal 136-144 [facility] Comment on above: Order Comment: Echoi men Type: BLOOD SPECIMEN Ordering Facility: [facility] Address: [address] [place] [address] Performed By: #### 5 8410-2 #### [facility] CLIA [id number] [address] [place] Urea nitrogen [Mass/Vol] 25 mg/dL High 9-24 [facility] Comment on above: Order Comment: Speci men Type: BLOOD SPECIMEN Ordering Facility: [facility] Address: [address] [place] [address] Performed By: #### 5 8410-2 #### [facility] CLIA [id number] [address] OF [facility] ED NOTEon 07-21-2021 ED NOTE HNO ID: [id number] Author: Phil Graham RN Service: Emergency Medicine Author Type: Registered Nurse Type: ED Notes Filed: 07/21/2021 4:51 PM Note Text: Pt. Needed to be placed on 15L NRB after only satting 85% consistently on 50% venti mask. Pt. Also repositioned and sat up in bed. Provider notified. [facility] ED NOTE HNO ID: [id number] Author: Raza Gimenez RN Service: Emergency Medicine Author Type: Registered Nurse Type: ED Notes Filed: 07/21/2021 11:58 AM Note Text: Transported to [place]. [facility] ED NOTE HNO ID: [id number] Author: Maribell Salazar RN Service: Emergency Medicine Author Type: Registered Nurse Type: ED Notes Filed: 07/21/2021 9:50 AM Note Text: ED attending at bedside assessing pt Normal [facility] ED NOTE HNO ID: [id number] Author: Maribell Salazar RN Service: Emergency Medicine Author Type: Registered Nurse Type: ED Notes Filed: 07/21/2021 9:34 AM Note Text: Patient's identity verified by patient stating name, Patient's identity verified by patient stating date, Patient's identity verified by hospital ID bracelet. Patient placed on monitoring manager, patient placed on non-invasive blood pressure monitor, patient placed on continuous pulse oximetry. Alarms set and on, patient tolerating monitoring. [facility] ED PROV NOTEon 07-21-2021 ED PROV NOTE HNO ID: [id number] Author: Darlin Hanna MD Service: Emergency Medicine [...] and shortness of breath. Patient come from [facility]. He was complaining of having shortness [...] 2.3 (* (more content not included)... Normal [facility] HIGH SENSITIVITY TROPONIN To n 07-21-2021 HIGH SENSITIVITY MEDARDO 34 ng/L High <12 [facility] Comment on above: Order Comment: Crystal bustillo Type: BLOOD SPECIMEN Ordering Facility: [facility] Address: [address] [place] [address] Result Comment: When assessing risk for acute [...] MACE. Performed By: #### 5 8410-2 #### [facility] CLIA [id number] [address] HIGH SENSITIVITY MEDARDO 33 ng/L High <12 [facility] Comment on above: Order Comment: Crystal bustillo Type: BLOOD SPECIMENOrdering Facility: [facility] Address: [address] [place] [address] Result Comment: When assessing risk for acute [...] MACE. Performed By: #### 9 4500-6 #### [facility] CLIA [id number] [address] HIGH SENSITIVITY MEDARDO 34 ng/L High <12 [facility] Comment on above: Order Comment: Crystal bustillo Type: BLOOD SPECIMENOrdering Facility: [facility] Address: [address] [place] [address] Result Comment: When assessing risk for acute [...] day MACE. Performed By: #### H STNT ####[facility] [id number] [address] MRSA Spec Ql Culton 07-22-19 22 MRSA isol Org specific cx Ql (Unsp spec) CULTURE, MRSA/MSSA SCREEN: Negative for Staphylococcus aureus Normal [facility] Comment on above: Performed By: #### 5 8410-2 #### [facility] CLIA [id number] [address] OF [facility] MRSA isol Org specific cx Ql (Unsp spec) CULTURE, MRSA/MSSA SCREEN: Negative for Staphylococcus aureus Normal [facility] Comment on above: Performed By: #### 1 3317-3 #### [facility] CLIA [id number] [address] [place] Magnesium SerPl-mCncon 07-21 Magnesium [Mass/Vol] 2.0 mg/dL Normal 1.7-2.3 [facility] Comment on above: Order Comment: Speci men Type: BLOOD SPECIMEN Ordering Facility: [facility] Address: [address] [place] [address] Performed By: #### 5 8410-2 #### [facility] CLIA [id number] [address] NT-proBNP SerPl-mCncon 07-21 Natriuretic peptide.B prohormone N-Terminal [Mass/Vol] 872 pg/mL High <125 [facility] Comment on above: Order Comment: Speci men Type: BLOOD SPECIMEN Ordering Facility: [facility] Address: [address] [place] [address] Performed By: #### 5 8410-2 #### [facility] CLIA [id number] [address] [place] PROCALCITONIN (LAB)on 2021 Procalcitonin [Mass/Vol] 0.15 ng/mL High <0.09 [facility] Comment on above: Order Comment: Speci men Type: BLOOD SPECIMEN Ordering Facility: [facility] Address: [address] [place] [address] Result Comment: For a guided interpretation of test results, please visit the Change in Procalcitonin Calculator, [email or web address]. Performed By: #### 5 8410-2 #### [facility] CLIA [id number] [address] [place] SARS-CoV-2 RNA Resp Ql JOAN+p robeon 07-21-2021 SARS-CoV-2 (COVID-19) RNA JOAN+probe Ql (Resp) COVID 19 RESULT: SARS-CoV-2 (Agent of COVID-19) Not Detected by RT-PCR or equivalent method. This test has been authorized by FDA under an Emergency Use Authorization (EUA). Normal [facility] Comment on above: Performed By: #### 9 4500-6 #### [facility] CLIA [id number] [address] [place] Basic Metabolic Panelon 01-2 0-2020 Calcium [Mass/Vol] 9.3 mg/dL Normal 8.4-10.4 [facility] Comment on above: Performed By: #### B MP3, MG3, CK3, TROPN #### [facility] [address] [place] [address] Glucose [Mass/Vol] 82 mg/dL Normal 70-100 [facility] Comment on above: Performed By: #### B MP3, MG3, CK3, TROPN #### [facility] [address] [place] [address] Anion gap [Moles/Vol] 9 Normal [facility] Comment on above: Performed By: #### B MP3, MG3, CK3, TROPN #### [facility] [address] [place] [address] CO2 [Moles/Vol] 25 mmol/L Normal 22-30 [facility] Comment on above: Performed By: #### B MP3, MG3, CK3, TROPN #### [facility] [address] [place] [address] Creatinine [Mass/Vol] 1.65 mg/dL High 0.52-1.25 [facility] Comment on above: Performed By: #### B MP3, MG3, CK3, TROPN #### [facility] [address] [place] [address] GFR/1.73 sq M predicted among blacks MDRD (S/P/Bld) [Vol rate/Area] 51.4 mL/min/{1.73_m2} Normal >60 [facility] Comment on above: Performed By: #### B MP3, MG3, CK3, TROPN #### [facility] [address] [place] [address] GFR/1.73 sq M predicted among non-blacks MDRD (S/P/Bld) [Vol rate/Area] 42.4 mL/min/{1.73_m2} Normal >60 [facility] Comment on above: Result Comment: Sour ce- MDRD equation with creatinine calibration to IDMS(NKDEP) eGFR not recommended for drug dose adjustment Performed By: #### B MP3, MG3, CK3, TROPN #### [facility] [address] [place] [address] Urea nitrogen [Mass/Vol] 32 mg/dL High 7-20 [facility] Comment on above: Performed By: #### B MP3, MG3, CK3, TROPN #### [facility] [address] [place] [address] Potassium [Moles/Vol] 5.5 mmol/L High 3.5-5.1 [facility] Comment on above: Performed By: #### B MP3, MG3, CK3, TROPN #### [facility] [address] [place] [address] Chloride [Moles/Vol] 107 mmol/L Normal 98-107 [facility] Comment on above: Performed By: #### B MP3, MG3, CK3, TROPN #### [facility] [address] [place] [address] Sodium [Moles/Vol] 141 mmol/L Normal 135-145 [facility] Comment on above: Performed By: #### B MP3, MG3, CK3, TROPN #### [facility] [address] [place] [address] Basic Metabolic PanelOrdered By: Barry Guadalupe on 05-06-2019 Anion gap [Moles/Vol] 9 mmol/L [facility] Work Phone: [phone] Calcium [Mass/Vol] 9.3 mg/dL 8.4 - 10. 4 mg/dL [facility] Work Phone: [phone] Chloride [Moles/Vol] 107 mmol/L 98 - 10 7 mmol/L [facility] Work Phone: [phone] CO2 [Moles/Vol] 25 mmol/L 22 - 30 mmol/L [facility] Work Phone: [phone] Creatinine [Mass/Vol] 1.65 mg/dL High 0.52 - 1.25 mg/dL [facility] Work Phone: [phone] EGFR IF NonAfrican Palestinian 42.4 mL/min >60 [facility] Work Phone: [phone] Comment on above: Source- MDRD equatio n with creatinine calibration to IDMS(NKDEP) eGFR not recommended for drug dose adjustment GFR/1.73 sq M.predicted among blacks MDRD (S/P/Bld) [Vol rate/Area] 51.4 mL/min/{1.73_m2} >60 [facility] Work Phone: [phone] Glucose [Mass/Vol] 82 mg/dL 70 - 100 mg/dL [facility] Work Phone: [phone] Interpretation and review of laboratory results Abnormal [facility] Work Phone: [phone] Potassium [Moles/Vol] 5.5 mmol/L High 3.5 - 5.1 mmol/L [facility] Work Phone: [phone] Sodium [Moles/Vol] 141 mmol/L 135 - 145 mmol/L [facility] Work Phone: [phone] Urea nitrogen [Mass/Vol] 32 mg/dL High 7 - 20 mg/dL [facility] Work Phone: CKon 05-06-2019 CK [Catalytic activity/Vol] 49 U/L Normal 30-170 [facility] Comment on above: Performed By: #### B MP3, MG3, CK3, TROPN #### [facility] [employer] [facility] [address] [place] [address] CKOrdered By: Barry mueller n 05-06-2019 CK [Catalytic activity/Vol] 49 U/L 30 - 170 U/L [facility] Work Phone: Magnesiumon 05-06-2019 Magnesium [Mass/Vol] 2.3 mg/dL Normal 1.6-2.3 [facility] Comment on above: Performed By: #### B MP3, MG3, CK3, TROPN #### [facility] [address] [place] [address] MagnesiumOrdered By: Barry Guadalupe on 05-06-2019 Magnesium [Mass/Vol] 2.3 mg/dL 1.6 - 2 .3 mg/dL [facility] Work Phone: No Panel InformationOrdered By: Barry Guadalupe on 05-06-2019 Test Performed by [facility] [employer] [facility], [address] , [address] Work Phone: Troponin Ion 05-06-2019 Troponin I.cardiac [Mass/Vol] ng/mL Normal 0.000-0.034 [facility] Comment on above: Result Comment: . Performed By: #### B MP3, MG3, CK3, TROPN #### [facility] [address] [place] [address] Troponin [id number] By: Yusra Guadalupe on 05-06-2019 Troponin I.cardiac [Mass/Vol] ng/mL 0 - 0.034 ng/mL [facility] Work Phone: Comment on above: . Test Performed by [facility] [employer], [address] , [address] Work Phone: CR Knee 1 or 2 Views Bilater yolanda 05-01-2019 CR Knee 1 or 2 Views Bilateral Patient Name: JAMES REYES [facility]: [id number] Diagnostic Radiology Exam Date/Time 05/01/2019 14:40:00 EST Exam CR Knee 1 or 2 Views Bilateral Ordering Physician MD LAI RYAN Accession Number [id number] CPT4 Codes 05307 () Reason For Exam bilateral knee pain [...] Time: 05/01/2019 3:52 Normal [facility] CR Knee Standing Bilateralon 05-01-2019 CR Knee Standing Bilateral Patient Name: JAMES REYES Diagnostic Radiology Exam Date/Time 05/01/2019 14:50:00 EST Exam CR Knee Standing AP Bilateral Ordering Physician MD LAI RYAN Accession Number [id number] CPT4 Codes 77507 () Reason For Exam bilateral knee pain [...] Time: 05/01/2019 3:52 Normal [facility] XR KNEE BILATERAL LIMITEDOrd ered By: Haydee Lai on 05-01-2019 Patient Name: JAMES REYES ---Diagnostic Radiology--- Exam Date/Time 05/01/2019 14:40:00 EST Exam CR Knee 1 or 2 Views Bilateral Ordering Physician MD LAI RYAN Accession Number [id number] CPT4 Codes 62968 () Reason For Exam bilateral knee pain [...] Phone: Joe, [facility] Incoming Radiology Results From [facility] - 05/01/2019 3:52 PM EST Patient Name: JAMES REYES ---Diagnostic Radiology--- Exam Date/Time 05/01/2019 14:40:00 EST Exam CR Knee 1 or 2 Views Bilateral Ordering Physician MD LAI RYAN Accession Number [id number] CPT4 Codes 74485 () Reason For Exam bilateral knee pain [...] Ordering Physician MD LAI RYAN Accession Number [id number] CPT4 Codes 08944 () Reason For Exam bilateral knee pain [...] Phone: Joe, [facility] Incoming Radiology Results From [facility] - 05/01/2019 3:52 PM EST Patient Name: JAMES REYES ---Diagnostic Radiology--- Exam Date/Time 05/01/2019 14:50:00 EST Exam CR Knee Standing AP Bilateral Ordering Physician MD LAI RYAN Accession Number [id number] CPT4 Codes 95044 () Reason For Exam bilateral knee pain [...] Views Right Ordering Physician MD KOMAL, MELQUIADES J Accession Number [id number] CPT4 Codes 15091 () Reason For Exam right shoulder pain [...] Time: 09/06/2018 4:20 Normal [facility] CULTURE ANAEROBEon 8 CULTURE ANAEROBE CULTURE ANAEROBE --> Status: F No growth of anaerobes at 5 days. Normal [facility] Comment on above: Performed By: #### M G3, BMP3 ####The performing lab is in the report. CULT./ST. BACTERIAon 018 CULT./ST. BACTERIA CULT./ST. BACTERIA - -> Status: F Mixed skin tayler present. STAIN GRAM --> Status: F Few polymorphonuclear cells/lpf. No organisms seen. No organisms seen. Normal [facility] Comment on above: Performed By: #### M G3, BMP3 ####The performing lab is in the report. CULTURE MYCOBACTERIA Conc.on 11-28-2017 CULTURE MYCOBACTERIA Conc. CULTURE MYCOBACTERIA Conc. --> Status: F Test performed at [facility] Microbiology Lab No acid-fast bacilli isolated after 6 weeks incubation. No acid-fast bacilli isolated after 6 weeks incubation. Normal [facility] Comment on above: Order Comment: or co llected Performed By: #### H EMDF, APTT, HA1C2 ####The performing lab is in the report. CULTURE FUNGUSon 11-06-2017 CULTURE FUNGUS CULTURE FUNGUS --> Status: F No fungus isolated after 21 days. Normal [facility] Comment on above: Order Comment: or co llected Performed By: #### H EMDF, APTT, HA1C2 ####The performing lab is in the report. Basic Metabolic Panelon 10-16 Anion gap 3 molar conc 7 Normal [facility] Comment on above: Performed By: #### M G3, BMP3 ####The performing lab is in the report. Calcium mass conc 8.2 mg/dL Low 8.4-10.4 [facility] Comment on above: Performed By: #### M G3, BMP3 ####The performing lab is in the report. CO2 molar conc 29 mmol/L Normal 22-30 [facility] Comment on above: Performed By: #### M G3, BMP3 ####The performing lab is in the report. Glucose mass conc 174 mg/dL High 70-100 [facility] Comment on above: Performed By: #### M G3, BMP3 ####The performing lab is in the report. Urea nitrogen mass conc 12 mg/dL Normal 7-20 [facility] Comment on above: Performed By: #### M G3, BMP3 ####The performing lab is in the report. Creatinine mass conc 0.74 mg/dL Normal 0.52-1.25 [facility] Comment on above: Performed By: #### M G3, BMP3 ####The performing lab is in the report. GFR/1.73 sq M predicted among blacks MDRD vol rate/area (S/P/Bld) mL/min/{1.73_m2} Normal >60 [facility] Comment on above: Performed By: #### M G3, BMP3 ####The performing lab is in the report. GFR/1.73 sq M predicted among non-blacks MDRD vol rate/area (S/P/Bld) mL/min/{1.73_m2} Normal >60 [facility] Comment on above: Result Comment: Sour ce- MDRD equation with creatinine calibration to IDMS(NKDEP) eGFR not recommended for drug dose adjustment Performed By: #### Ap G3, BMP3 ####The performing lab is in the report. Potassium molar conc 3.5 mmol/L Normal 3.5-5.1 [facility] Comment on above: Performed By: #### Ap G3, BMP3 ####The performing lab is in the report. Chloride molar conc 105 mmol/L Normal 98-107 [facility] Comment on above: Performed By: #### Ap Sanchez, BMP3 ####The performing lab is in the report. Sodium molar conc 141 mmol/L Normal 137-145 [facility] Comment on above: Performed By: #### Ap Sanchez, BMP3 ####The performing lab is in the report. Hemogram w/ Autodiffon 11-03 Abs Baso Cnt 0.0 10*3/uL Normal 0.0-0.2 [facility] Comment on above: Performed By: #### Ap Sanchez, BMP3 ####The performing lab is in the report. Abs Neutrophile Cnt 2.8 10*3/uL Normal 1.8-7.0 [facility] Comment on above: Performed By: #### Ap Sanchez, BMP3 ####The performing lab is in the report. Basophils/100 WBC Auto (Bld) 1.0 % Normal 0.0-2.0 [facility] Comment on above: Performed By: #### Ap G3, BMP3 ####The performing lab is in the report. Eosinophils Auto #/vol (Bld) 0.4 10*3/uL Normal 0.0-0.5 [facility] Comment on above: Performed By: #### Ap G3, BMP3 ####The performing lab is in the report. Eosinophils/100 WBC Auto (Bld) 8.0 % High 1.0-6.0 [facility] Comment on above: Performed By: #### pA G3, BMP3 ####The performing lab is in the report. Erythrocyte distribution width Auto Ratio (RBC) 16.9 % High 11.5-14.5 [facility] Comment on above: Performed By: #### Ap G3, BMP3 ####The performing lab is in the report. Granulocytes/100 WBC (Bld) 64.3 % Normal 40.0-80.0 [facility] Comment on above: Performed By: #### Ap G3, BMP3 ####The performing lab is in the report. Hematocrit Auto Volume Fraction (Bld) 22.5 % Low 40.0-52.0 [facility] Comment on above: Performed By: #### Ap G3, BMP3 ####The performing lab is in the report. Hemoglobin mass conc (Bld) 7.4 g/dL Low 13.0-18.0 [facility] Comment on above: Performed By: #### Ap G3, BMP3 ####The performing lab is in the report. Lymphocytes Auto #/vol (Bld) 0.7 10*3/uL Low 1.0-4.3 [facility] Comment on above: Performed By: #### Ap G3, BMP3 ####The performing lab is in the report. Lymphocytes/100 WBC Auto (Bld) 15.6 % Low 20.0-40.0 [facility] Comment on above: Performed By: #### Ap G3, BMP3 ####The performing lab is in the report. MCH Auto Entitic mass (RBC) 28.0 pg Normal 26.0-34.0 [facility] Comment on above: Performed By: #### Ap G3, BMP3 ####The performing lab is in the report. MCHC Auto mass conc (RBC) 33.1 % Normal 32.0-36.0 [facility] Comment on above: Performed By: #### Ap G3, BMP3 ####The performing lab is in the report. MCV Auto Entitic volume (RBC) 84.8 fL Normal 80.0-98.0 [facility] Comment on above: Performed By: #### Ap G3, BMP3 ####The performing lab is in the report. Monocytes Auto #/vol (Bld) 0.5 10*3/uL Normal 0.0-0.8 [facility] Comment on above: Performed By: #### Ap G3, BMP3 ####The performing lab is in the report. Monocytes/100 WBC Auto (Bld) 11.1 % High 2.0-10.0 [facility] Comment on above: Performed By: #### M G3, BMP3 ####The performing lab is in the report. Platelet mean volume Auto Entitic volume (Bld) 8.2 fL Normal 7.4-10.4 [facility] Comment on above: Performed By: #### M G3, BMP3 ####The performing lab is in the report. Platelets Auto #/vol (Bld) 287 10*3/uL Normal 140-440 [facility] Comment on above: Performed By: #### M G3, BMP3 ####The performing lab is in the report. RBC Auto #/vol (Bld) 2.65 10*6/uL Low 4.40-5.90 [facility] Comment on above: Performed By: #### M G3, BMP3 ####The performing lab is in the report. WBC Auto #/vol (Bld) 4.4 10*3/uL Normal 3.6-10.7 [facility] Comment on above: Performed By: #### M G3, BMP3 ####The performing lab is in the report. Prothrombin Timeon 8 INR Coag RelTime (PPP) 1.0 Normal 0.9-1.1 [facility] Comment on above: Result Comment: Lux mmended [...] to prevent Myocardial Infarction Performed By: #### M G3, BMP3 ####The performing lab is in the report. Prothrombin time (PT) Coag time (PPP) 10.7 s Normal 9.0-12.0 [facility] Comment on above: Result Comment: . Performed By: #### M G3, BMP3 ####The performing lab is in the report. TS GELon 11-03-2017 TS GEL ABO Group: A Rh, Gel: POS Antibody Screen Gel: NEG Normal [facility] Comment on above: Performed By: #### M G3, BMP3 ####The performing lab is in the report. Basic Metabolic Panelon 10-15 Anion gap 3 molar conc 6 Normal [facility] Comment on above: Performed By: #### M G3, BMP3 ####The performing lab is in the report. Calcium mass conc 8.9 mg/dL Normal 8.4-10.4 [facility] Comment on above: Performed By: #### M G3, BMP3 ####The performing lab is in the report. CO2 molar conc 30 mmol/L Normal 22-30 [facility] Comment on above: Performed By: #### M G3, BMP3 ####The performing lab is in the report. Glucose mass conc 101 mg/dL High 70-100 [facility] Comment on above: Performed By: #### M G3, BMP3 ####The performing lab is in the report. Urea nitrogen mass conc 8 mg/dL Normal 7-20 [facility] Comment on above: Performed By: #### M G3, BMP3 ####The performing lab is in the report. Creatinine mass conc 0.62 mg/dL Normal 0.52-1.25 [facility] Comment on above: Performed By: #### M G3, BMP3 ####The performing lab is in the report. GFR/1.73 sq M predicted among blacks MDRD vol rate/area (S/P/Bld) mL/min/{1.73_m2} Normal >60 [facility] Comment on above: Performed By: #### M G3, BMP3 ####The performing lab is in the report. GFR/1.73 sq M predicted among non-blacks MDRD vol rate/area (S/P/Bld) mL/min/{1.73_m2} Normal >60 [facility] Comment on above: Result Comment: Sour ce- MDRD equation with creatinine calibration to IDMS(NKDEP) eGFR not recommended for drug dose adjustment Performed By: #### M G3, BMP3 ####The performing lab is in the report. Potassium molar conc 2.9 mmol/L Low 3.5-5.1 [facility] Comment on above: Performed By: #### M G3, BMP3 ####The performing lab is in the report. Chloride molar conc 100 mmol/L Normal 98-107 [facility] Comment on above: Performed By: #### M G3, BMP3 ####The performing lab is in the report. Sodium molar conc 137 mmol/L Normal 137-145 [facility] Comment on above: Performed By: #### M G3, BMP3 ####The performing lab is in the report. Glucose,Bedsideon 10-30-2017 Glucose mass conc 131 mg/dL High 70-100 [facility] Comment on above: Result Comment: Test performed by glucose meter. Results may be 10%-15% lowerthan serum/plasma values. (CLIA ID [id number]) Performed By: #### Ap G3, BMP3 ####The performing lab is in the report. Glucose mass conc 163 mg/dL High 70-100 [facility] Comment on above: Result Comment: Test performed by glucose meter. Results may be 10%-15% lowerthan serum/plasma values. (CLIA ID [id number]) Performed By: #### Ap G3, BMP3 ####The performing lab is in the report. Hemogram w/ Autodiffon 10-30 Abs Baso Cnt 0.0 10*3/uL Normal 0.0-0.2 [facility] Comment on above: Performed By: #### pA G3, BMP3 ####The performing lab is in the report. Abs Neutrophile Cnt 2.1 10*3/uL Normal 1.8-7.0 [facility] Comment on above: Performed By: #### Ap G3, BMP3 ####The performing lab is in the report. Basophils/100 WBC Auto (Bld) 0.8 % Normal 0.0-2.0 [facility] Comment on above: Performed By: #### Ap G3, BMP3 ####The performing lab is in the report. Eosinophils Auto #/vol (Bld) 0.3 10*3/uL Normal 0.0-0.5 [facility] Comment on above: Performed By: #### Ap G3, BMP3 ####The performing lab is in the report. Eosinophils/100 WBC Auto (Bld) 8.5 % High 1.0-6.0 [facility] Comment on above: Performed By: #### M G3, BMP3 ####The performing lab is in the report. Erythrocyte distribution width Auto Ratio (RBC) 16.6 % High 11.5-14.5 [facility] Comment on above: Performed By: #### M G3, BMP3 ####The performing lab is in the report. Granulocytes/100 WBC (Bld) 60.6 % Normal 40.0-80.0 [facility] Comment on above: Performed By: #### Ap G3, BMP3 ####The performing lab is in the report. Hematocrit Auto Volume Fraction (Bld) 23.9 % Low 40.0-52.0 [facility] Comment on above: Performed By: #### Ap G3, BMP3 ####The performing lab is in the report. Hemoglobin mass conc (Bld) 8.0 g/dL Low 13.0-18.0 [facility] Comment on above: Performed By: #### Ap G3, BMP3 ####The performing lab is in the report. Lymphocytes Auto #/vol (Bld) 0.6 10*3/uL Low 1.0-4.3 [facility] Comment on above: Performed By: #### Ap G3, BMP3 ####The performing lab is in the report. Lymphocytes/100 WBC Auto (Bld) 17.4 % Low 20.0-40.0 [facility] Comment on above: Performed By: #### Ap G3, BMP3 ####The performing lab is in the report. MCH Auto Entitic mass (RBC) 27.7 pg Normal 26.0-34.0 [facility] Comment on above: Performed By: #### M G3, BMP3 ####The performing lab is in the report. MCHC Auto mass conc (RBC) 33.3 % Normal 32.0-36.0 [facility] Comment on above: Performed By: #### Ap G3, BMP3 ####The performing lab is in the report. MCV Auto Entitic volume (RBC) 83.4 fL Normal 80.0-98.0 [facility] Comment on above: Performed By: #### Ap G3, BMP3 ####The performing lab is in the report. Monocytes Auto #/vol (Bld) 0.4 10*3/uL Normal 0.0-0.8 [facility] Comment on above: Performed By: #### Ap G3, BMP3 ####The performing lab is in the report. Monocytes/100 WBC Auto (Bld) 12.7 % High 2.0-10.0 [facility] Comment on above: Performed By: #### Ap G3, BMP3 ####The performing lab is in the report. Platelet mean volume Auto Entitic volume (Bld) 8.2 fL Normal 7.4-10.4 [facility] Comment on above: Performed By: #### Ap Sanchez, BMP3 ####The performing lab is in the report. Platelets Auto #/vol (Bld) 266 10*3/uL Normal 140-440 [facility] Comment on above: Performed By: #### Ap Sanchez, BMP3 ####The performing lab is in the report. RBC Auto #/vol (Bld) 2.87 10*6/uL Low 4.40-5.90 [facility] Comment on above: Performed By: #### Ap G3, BMP3 ####The performing lab is in the report. WBC Auto #/vol (Bld) 3.5 10*3/uL Low 3.6-10.7 [facility] Comment on above: Performed By: #### Ap G3, BMP3 ####The performing lab is in the report. Magnesiumon 10-30-2017 Magnesium mass conc 1.6 mg/dL Normal 1.6-2.3 [facility] Comment on above: Performed By: #### Ap G3, BMP3 ####The performing lab is in the report. Phosphoruson 10-30-2017 Phosphate mass conc 3.1 mg/dL Normal 2.5-4.5 [facility] Comment on above: Performed By: #### Ap G3, BMP3 ####The performing lab is in the report. Basic Metabolic Panelon 10-15 Anion gap 3 molar conc 6 Normal [facility] Comment on above: Performed By: #### M G3, BMP3 ####The performing lab is in the report. Calcium mass conc 8.8 mg/dL Normal 8.4-10.4 [facility] Comment on above: Performed By: #### Ap G3, BMP3 ####The performing lab is in the report. CO2 molar conc 30 mmol/L Normal 22-30 [facility] Comment on above: Performed By: #### Ap G3, BMP3 ####The performing lab is in the report. Creatinine mass conc 0.65 mg/dL Normal 0.52-1.25 [facility] Comment on above: Performed By: #### Ap G3, BMP3 ####The performing lab is in the report. GFR/1.73 sq M predicted among blacks MDRD vol rate/area (S/P/Bld) mL/min/{1.73_m2} Normal >60 [facility] Comment on above: Performed By: #### Ap G3, BMP3 ####The performing lab is in the report. GFR/1.73 sq M predicted among non-blacks MDRD vol rate/area (S/P/Bld) mL/min/{1.73_m2} Normal >60 [facility] [place] [facility] Comment on above: Result Comment: Sour ce- MDRD equation with creatinine calibration to IDMS(NKDEP) eGFR not recommended for drug dose adjustment Performed By: #### Ap G3, BMP3 ####The performing lab is in the report. Glucose mass conc 100 mg/dL Normal 70-100 [facility] Comment on above: Performed By: #### Ap G3, BMP3 ####The performing lab is in the report. Urea nitrogen mass conc 9 mg/dL Normal 7-20 [facility] Comment on above: Performed By: #### M G3, BMP3 ####The performing lab is in the report. Potassium molar conc 3.0 mmol/L Low 3.5-5.1 [facility] Comment on above: Performed By: #### M G3, BMP3 ####The performing lab is in the report. Sodium molar conc 135 mmol/L Low 137-145 [facility] Comment on above: Performed By: #### M G3, BMP3 ####The performing lab is in the report. Chloride molar conc 99 mmol/L Normal 98-107 [facility] Comment on above: Performed By: #### M G3, BMP3 ####The performing lab is in the report. CULTURE ANAEROBEon 8 CULTURE ANAEROBE CULTURE ANAEROBE --> Status: F No growth of anaerobes at 5 days. Normal [facility] Comment on above: Order Comment: ORor Performed By: #### M G3, BMP3 ####The performing lab is in the report. Glucose,Bedsideon 10-29-2017 Glucose mass conc 124 mg/dL High 70-100 [facility] Comment on above: Result Comment: Test performed by glucose meter. Results may be 10%-15% lowerthan serum/plasma values. (CLIA ID [id number]) Performed By: #### M G3, BMP3 ####The performing lab is in the report. Glucose mass conc 208 mg/dL High 70-100 [facility] Comment on above: Result Comment: Test performed by glucose meter. Results may be 10%-15% lowerthan serum/plasma values. (CLIA ID [id number]) Performed By: #### M G3, BMP3 ####The performing lab is in the report. Glucose mass conc 139 mg/dL High 70-100 [facility] Comment on above: Result Comment: Test performed by glucose meter. Results may be 10%-15% lowerthan serum/plasma values. (CLIA ID [id number]) Performed By: #### M G3, BMP3 ####The performing lab is in the report. Hemogram w/ Autodiffon 10-29 Abs Baso Cnt 0.0 10*3/uL Normal 0.0-0.2 [facility] Comment on above: Performed By: #### M G3, BMP3 ####The performing lab is in the report. Abs Neutrophile Cnt 2.4 10*3/uL Normal 1.8-7.0 [facility] Comment on above: Performed By: #### Ap G3, BMP3 ####The performing lab is in the report. Basophils/100 WBC Auto (Bld) 0.7 % Normal 0.0-2.0 [facility] Comment on above: Performed By: #### Ap G3, BMP3 ####The performing lab is in the report. Eosinophils Auto #/vol (Bld) 0.2 10*3/uL Normal 0.0-0.5 [facility] Comment on above: Performed By: #### Ap G3, BMP3 ####The performing lab is in the report. Eosinophils/100 WBC Auto (Bld) 6.1 % High 1.0-6.0 [facility] Comment on above: Performed By: #### Ap G3, BMP3 ####The performing lab is in the report. Erythrocyte distribution width Auto Ratio (RBC) 16.4 % High 11.5-14.5 [facility] Comment on above: Performed By: #### Ap G3, BMP3 ####The performing lab is in the report. Granulocytes/100 WBC (Bld) 65.0 % Normal 40.0-80.0 [facility] Comment on above: Performed By: #### Ap G3, BMP3 ####The performing lab is in the report. Hematocrit Auto Volume Fraction (Bld) 22.2 % Low 40.0-52.0 [facility] Comment on above: Performed By: #### Ap G3, BMP3 ####The performing lab is in the report. Hemoglobin mass conc (Bld) 7.3 g/dL Low 13.0-18.0 [facility] Comment on above: Performed By: #### Ap G3, BMP3 ####The performing lab is in the report. Lymphocytes Auto #/vol (Bld) 0.6 10*3/uL Low 1.0-4.3 [facility] Comment on above: Performed By: #### Ap G3, BMP3 ####The performing lab is in the report. Lymphocytes/100 WBC Auto (Bld) 16.6 % Low 20.0-40.0 [facility] Comment on above: Performed By: #### Ap G3, BMP3 ####The performing lab is in the report. MCH Auto Entitic mass (RBC) 27.6 pg Normal 26.0-34.0 [facility] Comment on above: Performed By: #### M G3, BMP3 ####The performing lab is in the report. MCHC Auto mass conc (RBC) 33.1 % Normal 32.0-36.0 [facility] Comment on above: Performed By: #### Ap G3, BMP3 ####The performing lab is in the report. MCV Auto Entitic volume (RBC) 83.4 fL Normal 80.0-98.0 [facility] Comment on above: Performed By: #### Ap G3, BMP3 ####The performing lab is in the report. Monocytes Auto #/vol (Bld) 0.4 10*3/uL Normal 0.0-0.8 [facility] Comment on above: Performed By: #### Ap G3, BMP3 ####The performing lab is in the report. Monocytes/100 WBC Auto (Bld) 11.6 % High 2.0-10.0 [facility] Comment on above: Performed By: #### Ap G3, BMP3 ####The performing lab is in the report. Platelet mean volume Auto Entitic volume (Bld) 8.3 fL Normal 7.4-10.4 [facility] Comment on above: Performed By: #### Ap G3, BMP3 ####The performing lab is in the report. Platelets Auto #/vol (Bld) 251 10*3/uL Normal 140-440 [facility] Comment on above: Performed By: #### Ap G3, BMP3 ####The performing lab is in the report. RBC Auto #/vol (Bld) 2.66 10*6/uL Low 4.40-5.90 [facility] Comment on above: Performed By: #### Ap G3, BMP3 ####The performing lab is in the report. WBC Auto #/vol (Bld) 3.7 10*3/uL Normal 3.6-10.7 [facility] Comment on above: Performed By: #### M G3, BMP3 ####The performing lab is in the report. Magnesiumon 10-29-2017 Magnesium mass conc 1.6 mg/dL Normal 1.6-2.3 [facility] Comment on above: Performed By: #### M G3, BMP3 ####The performing lab is in the report. Phosphoruson 10-29-2017 Phosphate mass conc 2.8 mg/dL Normal 2.5-4.5 [facility] Comment on above: Performed By: #### M G3, BMP3 ####The performing lab is in the report. Basic Metabolic Panelon 10-15 Calcium mass conc 8.9 mg/dL Normal 8.4-10.4 [facility] Comment on above: Performed By: #### M G3, BMP3 ####The performing lab is in the report. Anion gap 3 molar conc 6 Normal [facility] Comment on above: Performed By: #### M G3, BMP3 ####The performing lab is in the report. CO2 molar conc 31 mmol/L High 22-30 [facility] Comment on above: Performed By: #### M G3, BMP3 ####The performing lab is in the report. Creatinine mass conc 0.66 mg/dL Normal 0.52-1.25 [facility] Comment on above: Performed By: #### M G3, BMP3 ####The performing lab is in the report. GFR/1.73 sq M predicted among blacks MDRD vol rate/area (S/P/Bld) mL/min/{1.73_m2} Normal >60 [facility] Comment on above: Performed By: #### M G3, BMP3 ####The performing lab is in the report. GFR/1.73 sq M predicted among non-blacks MDRD vol rate/area (S/P/Bld) mL/min/{1.73_m2} Normal >60 [facility] Comment on above: Result Comment: Sour ce- MDRD equation with creatinine calibration to IDMS(NKDEP) eGFR not recommended for drug dose adjustment Performed By: #### M G3, BMP3 ####The performing lab is in the report. Glucose mass conc 105 mg/dL High 70-100 [facility] Comment on above: Performed By: #### M G3, BMP3 ####The performing lab is in the report. Urea nitrogen mass conc 11 mg/dL Normal 7-20 [facility] Comment on above: Performed By: #### M G3, BMP3 ####The performing lab is in the report. Chloride molar conc 101 mmol/L Normal 98-107 [facility] Comment on above: Performed By: #### M G3, BMP3 ####The performing lab is in the report. Potassium molar conc 3.4 mmol/L Low 3.5-5.1 [facility] Comment on above: Performed By: #### M G3, BMP3 ####The performing lab is in the report. Sodium molar conc 137 mmol/L Normal 137-145 [facility] Comment on above: Performed By: #### M G3, BMP3 ####The performing lab is in the report. Glucose,Bedsideon 10-28-2017 Glucose mass conc 135 mg/dL High 70-100 [facility] Comment on above: Result Comment: Test performed by glucose meter. Results may be 10%-15% lowerthan serum/plasma values. (CLIA ID [id number]) Performed By: #### M G3, BMP3 ####The performing lab is in the report. Glucose mass conc 145 mg/dL High 70-100 [facility] Comment on above: Result Comment: Test performed by glucose meter. Results may be 10%-15% lowerthan serum/plasma values. (CLIA ID [id number]) Performed By: #### M G3, BMP3 ####The performing lab is in the report. Glucose mass conc 133 mg/dL High 70-100 [facility] Comment on above: Result Comment: Test performed by glucose meter. Results may be 10%-15% lowerthan serum/plasma values. (CLIA ID [id number]) Performed By: #### M G3, BMP3 ####The performing lab is in the report. Glucose mass conc 149 mg/dL High 70-100 [facility] Comment on above: Result Comment: Test performed by glucose meter. Results may be 10%-15% lowerthan serum/plasma values. (CLIA ID [id number]) Performed By: #### Ap G3, BMP3 ####The performing lab is in the report. Hemogram w/ Autodiffon 10-28 Abs Baso Cnt 0.0 10*3/uL Normal 0.0-0.2 [facility] Comment on above: Performed By: #### Ap G3, BMP3 ####The performing lab is in the report. Abs Neutrophile Cnt 2.5 10*3/uL Normal 1.8-7.0 [facility] Comment on above: Performed By: #### Ap G3, BMP3 ####The performing lab is in the report. Basophils/100 WBC Auto (Bld) 0.7 % Normal 0.0-2.0 [facility] Comment on above: Performed By: #### Ap G3, BMP3 ####The performing lab is in the report. Eosinophils Auto #/vol (Bld) 0.2 10*3/uL Normal 0.0-0.5 [facility] Comment on above: Performed By: #### Ap G3, BMP3 ####The performing lab is in the report. Eosinophils/100 WBC Auto (Bld) 5.5 % Normal 1.0-6.0 [facility] Comment on above: Performed By: #### Ap G3, BMP3 ####The performing lab is in the report. Erythrocyte distribution width Auto Ratio (RBC) 16.1 % High 11.5-14.5 [facility] Comment on above: Performed By: #### Ap G3, BMP3 ####The performing lab is in the report. Granulocytes/100 WBC (Bld) 66.5 % Normal 40.0-80.0 [facility] Comment on above: Performed By: #### Ap G3, BMP3 ####The performing lab is in the report. Hematocrit Auto Volume Fraction (Bld) 21.9 % Low 40.0-52.0 [facility] Comment on above: Performed By: #### Ap G3, BMP3 ####The performing lab is in the report. Hemoglobin mass conc (Bld) 7.3 g/dL Low 13.0-18.0 [facility] Comment on above: Performed By: #### Ap G3, BMP3 ####The performing lab is in the report. Lymphocytes Auto #/vol (Bld) 0.6 10*3/uL Low 1.0-4.3 [facility] Comment on above: Performed By: #### Ap G3, BMP3 ####The performing lab is in the report. Lymphocytes/100 WBC Auto (Bld) 16.2 % Low 20.0-40.0 [facility] Comment on above: Performed By: #### Ap G3, BMP3 ####The performing lab is in the report. MCH Auto Entitic mass (RBC) 28.1 pg Normal 26.0-34.0 [facility] Comment on above: Performed By: #### Ap G3, BMP3 ####The performing lab is in the report. MCHC Auto mass conc (RBC) 33.2 % Normal 32.0-36.0 [facility] Comment on above: Performed By: #### Ap G3, BMP3 ####The performing lab is in the report. MCV Auto Entitic volume (RBC) 84.7 fL Normal 80.0-98.0 [facility] Comment on above: Performed By: #### Ap G3, BMP3 ####The performing lab is in the report. Monocytes Auto #/vol (Bld) 0.4 10*3/uL Normal 0.0-0.8 [facility] Comment on above: Performed By: #### Ap G3, BMP3 ####The performing lab is in the report. Monocytes/100 WBC Auto (Bld) 11.1 % High 2.0-10.0 [facility] Comment on above: Performed By: #### Ap G3, BMP3 ####The performing lab is in the report. Platelet mean volume Auto Entitic volume (Bld) 8.9 fL Normal 7.4-10.4 [facility] Comment on above: Performed By: #### Ap G3, BMP3 ####The performing lab is in the report. Platelets Auto #/vol (Bld) 226 10*3/uL Normal 140-440 [facility] Comment on above: Performed By: #### M G3, BMP3 ####The performing lab is in the report. RBC Auto #/vol (Bld) 2.59 10*6/uL Low 4.40-5.90 [facility] Comment on above: Performed By: #### M G3, BMP3 ####The performing lab is in the report. WBC Auto #/vol (Bld) 3.8 10*3/uL Normal 3.6-10.7 [facility] Comment on above: Performed By: #### M G3, BMP3 ####The performing lab is in the report. Magnesiumon 10-28-2017 Magnesium mass conc 1.6 mg/dL Normal 1.6-2.3 [facility] Comment on above: Performed By: #### Ap G3, BMP3 ####The performing lab is in the report. Phosphoruson 10-28-2017 Phosphate mass conc 2.8 mg/dL Normal 2.5-4.5 [facility] Comment on above: Performed By: #### M G3, BMP3 ####The performing lab is in the report. Basic Metabolic Panelon 10-15 Calcium mass conc 9.0 mg/dL Normal 8.4-10.4 [facility] Comment on above: Performed By: #### Ap G3, BMP3 ####The performing lab is in the report. Anion gap 3 molar conc 4 Normal [facility] Comment on above: Performed By: #### Ap G3, BMP3 ####The performing lab is in the report. CO2 molar conc 30 mmol/L Normal 22-30 [facility] Comment on above: Performed By: #### M G3, BMP3 ####The performing lab is in the report. Creatinine mass conc 0.68 mg/dL Normal 0.52-1.25 [facility] Comment on above: Performed By: #### M G3, BMP3 ####The performing lab is in the report. GFR/1.73 sq M predicted among blacks MDRD vol rate/area (S/P/Bld) mL/min/{1.73_m2} Normal >60 [facility] Comment on above: Performed By: #### Ap G3, BMP3 ####The performing lab is in the report. GFR/1.73 sq M predicted among non-blacks MDRD vol rate/area (S/P/Bld) mL/min/{1.73_m2} Normal >60 [facility] Comment on above: Result Comment: Sour ce- MDRD equation with creatinine calibration to IDMS(NKDEP) eGFR not recommended for drug dose adjustment Performed By: #### Ap G3, BMP3 ####The performing lab is in the report. Glucose mass conc 121 mg/dL High 70-100 [facility] Comment on above: Performed By: #### Ap G3, BMP3 ####The performing lab is in the report. Urea nitrogen mass conc 17 mg/dL Normal 7-20 [facility] Comment on above: Performed By: #### Ap G3, BMP3 ####The performing lab is in the report. Chloride molar conc 102 mmol/L Normal 98-107 [facility] Comment on above: Performed By: #### Ap G3, BMP3 ####The performing lab is in the report. Potassium molar conc 3.8 mmol/L Normal 3.5-5.1 [facility] Comment on above: Performed By: #### Ap G3, BMP3 ####The performing lab is in the report. Sodium molar conc 136 mmol/L Low 137-145 [facility] Comment on above: Performed [...] = 8 S Normal [facility] Comment on above: Order Comment: ORor Performed By: #### M G3, BMP3 ####The performing lab is in the report. [facility] mass conc 122 mg/dL High 70-100 [facility] Comment on above: Result Comment: Test performed by glucose meter. Results may be 10%-15% lowerthan serum/plasma values. (CLIA ID [id number]) Performed By: #### M G3, BMP3 ####The performing lab is in the report. Glucose mass conc 119 mg/dL High 70-100 [facility] Comment on above: Result Comment: Test performed by glucose meter. Results may be 10%-15% lowerthan serum/plasma values. (CLIA ID [id number]) Performed By: #### M G3, BMP3 ####The performing lab is in the report. Glucose mass conc 149 mg/dL High 70-100 [facility] Comment on above: Result Comment: Test performed by glucose meter. Results may be 10%-15% lowerthan serum/plasma values. (CLIA ID [id number]) Performed By: #### M G3, BMP3 ####The performing lab is in the report. Glucose mass conc 171 mg/dL High 70-100 [facility] Comment on above: Result Comment: Test performed by glucose meter. Results may be 10%-15% lowerthan serum/plasma values. (CLIA ID [id number]) Performed By: #### Ap G3, BMP3 ####The performing lab is in the report. Hemogram w/ Autodiffon 10-27 Abs Baso Cnt 0.0 10*3/uL Normal 0.0-0.2 [facility] Comment on above: Performed By: #### Ap G3, BMP3 ####The performing lab is in the report. Abs Neutrophile Cnt 3.1 10*3/uL Normal 1.8-7.0 [facility] Comment on above: Performed By: #### Ap G3, BMP3 ####The performing lab is in the report. Basophils/100 WBC Auto (Bld) 0.7 % Normal 0.0-2.0 [facility] Comment on above: Performed By: #### Ap G3, BMP3 ####The performing lab is in the report. Eosinophils Auto #/vol (Bld) 0.3 10*3/uL Normal 0.0-0.5 [facility] Comment on above: Performed By: #### Ap G3, BMP3 ####The performing lab is in the report. Eosinophils/100 WBC Auto (Bld) 6.7 % High 1.0-6.0 [facility] Comment on above: Performed By: #### Ap G3, BMP3 ####The performing lab is in the report. Erythrocyte distribution width Auto Ratio (RBC) 16.3 % High 11.5-14.5 [facility] Comment on above: Performed By: #### M G3, BMP3 ####The performing lab is in the report. Granulocytes/100 WBC (Bld) 68.1 % Normal 40.0-80.0 [facility] Comment on above: Performed By: #### Ap G3, BMP3 ####The performing lab is in the report. Hematocrit Auto Volume Fraction (Bld) 23.0 % Low 40.0-52.0 [facility] Comment on above: Performed By: #### Ap G3, BMP3 ####The performing lab is in the report. Hemoglobin mass conc (Bld) 7.5 g/dL Low 13.0-18.0 [facility] Comment on above: Performed By: #### Ap G3, BMP3 ####The performing lab is in the report. Lymphocytes Auto #/vol (Bld) 0.7 10*3/uL Low 1.0-4.3 [facility] Comment on above: Performed By: #### Ap G3, BMP3 ####The performing lab is in the report. Lymphocytes/100 WBC Auto (Bld) 14.4 % Low 20.0-40.0 [facility] Comment on above: Performed By: #### Ap G3, BMP3 ####The performing lab is in the report. MCH Auto Entitic mass (RBC) 27.6 pg Normal 26.0-34.0 [facility] Comment on above: Performed By: #### Ap G3, BMP3 ####The performing lab is in the report. MCHC Auto mass conc (RBC) 32.6 % Normal 32.0-36.0 [facility] Comment on above: Performed By: #### Ap G3, BMP3 ####The performing lab is in the report. MCV Auto Entitic volume (RBC) 84.7 fL Normal 80.0-98.0 [facility] Comment on above: Performed By: #### Ap G3, BMP3 ####The performing lab is in the report. Monocytes Auto #/vol (Bld) 0.5 10*3/uL Normal 0.0-0.8 [facility] Comment on above: Performed By: #### Ap G3, BMP3 ####The performing lab is in the report. Monocytes/100 WBC Auto (Bld) 10.1 % High 2.0-10.0 [facility] Comment on above: Performed By: #### Ap G3, BMP3 ####The performing lab is in the report. Platelet mean volume Auto Entitic volume (Bld) 8.6 fL Normal 7.4-10.4 [facility] Comment on above: Performed By: #### Ap G3, BMP3 ####The performing lab is in the report. Platelets Auto #/vol (Bld) 211 10*3/uL Normal 140-440 [facility] Comment on above: Performed By: #### M G3, BMP3 ####The performing lab is in the report. RBC Auto #/vol (Bld) 2.72 10*6/uL Low 4.40-5.90 [facility] Comment on above: Performed By: #### M G3, BMP3 ####The performing lab is in the report. WBC Auto #/vol (Bld) 4.6 10*3/uL Normal 3.6-10.7 [facility] Comment on above: Performed By: #### Ap G3, BMP3 ####The performing lab is in the report. Magnesiumon 10-27-2017 Magnesium mass conc 1.6 mg/dL Normal 1.6-2.3 [facility] Comment on above: Performed By: #### Ap G3, BMP3 ####The performing lab is in the report. Phosphoruson 10-27-2017 Phosphate mass conc 2.8 mg/dL Normal 2.5-4.5 [facility] Comment on above: Performed By: #### Ap G3, BMP3 ####The performing lab is in the report. Basic Metabolic Panelon 10-15 Calcium mass conc 9.1 mg/dL Normal 8.4-10.4 [facility] Comment on above: Performed By: #### Ap G3, BMP3 ####The performing lab is in the report. Glucose mass conc 145 mg/dL High 70-100 [facility] Comment on above: Performed By: #### Ap G3, BMP3 ####The performing lab is in the report. Urea nitrogen mass conc 23 mg/dL High 7-20 [facility] Comment on above: Performed By: #### M G3, BMP3 ####The performing lab is in the report. Anion gap 3 molar conc 5 Normal [facility] Comment on above: Performed By: #### M G3, BMP3 ####The performing lab is in the report. CO2 molar conc 31 mmol/L High 22-30 [facility] Comment on above: Performed By: #### Ap G3, BMP3 ####The performing lab is in the report. Creatinine mass conc 0.75 mg/dL Normal 0.52-1.25 [facility] Comment on above: Performed By: #### Ap G3, BMP3 ####The performing lab is in the report. GFR/1.73 sq M predicted among blacks MDRD vol rate/area (S/P/Bld) mL/min/{1.73_m2} Normal >60 [facility] Comment on above: Performed By: #### Ap G3, BMP3 ####The performing lab is in the report. GFR/1.73 sq M predicted among non-blacks MDRD vol rate/area (S/P/Bld) mL/min/{1.73_m2} Normal >60 [facility] Comment on above: Result Comment: Sour ce- MDRD equation with creatinine calibration to IDMS(NKDEP) eGFR not recommended for drug dose adjustment Performed By: #### Ap G3, BMP3 ####The performing lab is in the report. Chloride molar conc 101 mmol/L Normal 98-107 [facility] Comment on above: Performed By: #### Ap G3, BMP3 ####The performing lab is in the report. Potassium molar conc 3.6 mmol/L Normal 3.5-5.1 [facility] Comment on above: Performed By: #### Ap G3, BMP3 ####The performing lab is in the report. Sodium molar conc 137 mmol/L Normal 137-145 [facility] Comment on above: Performed By: #### Ap G3, BMP3 ####The performing lab is in the report. Glucose,Bedsideon 10-26-2017 Glucose mass conc 135 mg/dL High 70-100 [facility] Comment on above: Result Comment: Test performed by glucose meter. Results may be 10%-15% lowerthan serum/plasma values. (CLIA ID [id number]) Performed By: #### M G3, BMP3 ####The performing lab is in the report. Glucose mass conc 166 mg/dL High 70-100 [facility] Comment on above: Result Comment: Test performed by glucose meter. Results may be 10%-15% lowerthan serum/plasma values. (CLIA ID [id number]) Performed By: #### Ap G3, BMP3 ####The performing lab is in the report. Glucose mass conc 105 mg/dL High 70-100 [facility] Comment on above: Result Comment: Test performed by glucose meter. Results may be 10%-15% lowerthan serum/plasma values. (CLIA ID [id number]) Performed By: #### Ap G3, BMP3 ####The performing lab is in the report. Hemogram w/ Autodiffon 10-26 Abs Baso Cnt 0.0 10*3/uL Normal 0.0-0.2 [facility] Comment on above: Performed By: #### Ap G3, BMP3 ####The performing lab is in the report. Abs Neutrophile Cnt 4.5 10*3/uL Normal 1.8-7.0 [facility] Comment on above: Performed By: #### Ap G3, BMP3 ####The performing lab is in the report. Basophils/100 WBC Auto (Bld) 0.5 % Normal 0.0-2.0 [facility] Comment on above: Performed By: #### Ap G3, BMP3 ####The performing lab is in the report. Eosinophils Auto #/vol (Bld) 0.3 10*3/uL Normal 0.0-0.5 [facility] Comment on above: Performed By: #### Ap G3, BMP3 ####The performing lab is in the report. Eosinophils/100 WBC Auto (Bld) 5.3 % Normal 1.0-6.0 [facility] Comment on above: Performed By: #### Ap G3, BMP3 ####The performing lab is in the report. Erythrocyte distribution width Auto Ratio (RBC) 16.5 % High 11.5-14.5 [facility] Comment on above: Performed By: #### Ap G3, BMP3 ####The performing lab is in the report. Granulocytes/100 WBC (Bld) 71.4 % Normal 40.0-80.0 [facility] Comment on above: Performed By: #### Ap G3, BMP3 ####The performing lab is in the report. Hematocrit Auto Volume Fraction (Bld) 23.1 % Low 40.0-52.0 [facility] Comment on above: Performed By: #### pA G3, BMP3 ####The performing lab is in the report. Hemoglobin mass conc (Bld) 7.5 g/dL Low 13.0-18.0 [facility] Comment on above: Performed By: #### Ap G3, BMP3 ####The performing lab is in the report. Lymphocytes Auto #/vol (Bld) 0.7 10*3/uL Low 1.0-4.3 [facility] Comment on above: Performed By: #### Ap G3, BMP3 ####The performing lab is in the report. Lymphocytes/100 WBC Auto (Bld) 11.3 % Low 20.0-40.0 [facility] Comment on above: Performed By: #### Ap G3, BMP3 ####The performing lab is in the report. MCH Auto Entitic mass (RBC) 27.9 pg Normal 26.0-34.0 [facility] Comment on above: Performed By: #### Ap G3, BMP3 ####The performing lab is in the report. MCHC Auto mass conc (RBC) 32.4 % Normal 32.0-36.0 [facility] Comment on above: Performed By: #### Ap G3, BMP3 ####The performing lab is in the report. MCV Auto Entitic volume (RBC) 86.1 fL Normal 80.0-98.0 [facility] Comment on above: Performed By: #### Ap G3, BMP3 ####The performing lab is in the report. Monocytes Auto #/vol (Bld) 0.7 10*3/uL Normal 0.0-0.8 [facility] Comment on above: Performed By: #### Ap G3, BMP3 ####The performing lab is in the report. Monocytes/100 WBC Auto (Bld) 11.5 % High 2.0-10.0 [facility] Comment on above: Performed By: #### Ap G3, BMP3 ####The performing lab is in the report. Platelet mean volume Auto Entitic volume (Bld) 8.7 fL Normal 7.4-10.4 [facility] Comment on above: Performed By: #### Ap G3, BMP3 ####The performing lab is in the report. Platelets Auto #/vol (Bld) 218 10*3/uL Normal 140-440 [facility] Comment on above: Performed By: #### Ap G3, BMP3 ####The performing lab is in the report. RBC Auto #/vol (Bld) 2.68 10*6/uL Low 4.40-5.90 [facility] Comment on above: Performed By: #### Ap G3, BMP3 ####The performing lab is in the report. WBC Auto #/vol (Bld) 6.2 10*3/uL Normal 3.6-10.7 [facility] Comment on above: Performed By: #### Ap Sanchez, BMP3 ####The performing lab is in the report. Magnesiumon 10-26-2017 Magnesium mass conc 1.7 mg/dL Normal 1.6-2.3 [facility] Comment on above: Performed By: #### Ap Sanchez, BMP3 ####The performing lab is in the report. Phosphoruson 10-26-2017 Phosphate mass conc 2.6 mg/dL Normal 2.5-4.5 [facility] Comment on above: Performed By: #### Ap Sanchez, BMP3 ####The performing lab is in the report. Basic Metabolic Panelon 10-15 Anion gap 3 molar conc 9 Normal [facility] Comment on above: Performed By: #### Ap Sanchez, BMP3 ####The performing lab is in the report. Calcium mass conc 9.4 mg/dL Normal 8.4-10.4 [facility] Comment on above: Performed By: #### Ap G3, BMP3 ####The performing lab is in the report. CO2 molar conc 29 mmol/L Normal 22-30 [facility] Comment on above: Performed By: #### Ap G3, BMP3 ####The performing lab is in the report. Glucose mass conc 148 mg/dL High 70-100 [facility] Comment on above: Performed By: #### Ap G3, BMP3 ####The performing lab is in the report. Urea nitrogen mass conc 21 mg/dL High 7-20 [facility] Comment on above: Performed By: #### M G3, BMP3 ####The performing lab is in the report. Creatinine mass conc 0.83 mg/dL Normal 0.52-1.25 [facility] Comment on above: Performed By: #### M G3, BMP3 ####The performing lab is in the report. GFR/1.73 sq M predicted among blacks MDRD vol rate/area (S/P/Bld) mL/min/{1.73_m2} Normal >60 [facility] Comment on above: Performed By: #### M G3, BMP3 ####The performing lab is in the report. GFR/1.73 sq M predicted among non-blacks MDRD vol rate/area (S/P/Bld) mL/min/{1.73_m2} Normal >60 [facility] Comment on above: Result Comment: Sour ce- MDRD equation with creatinine calibration to IDMS(NKDEP) eGFR not recommended for drug dose adjustment Performed By: #### M G3, BMP3 ####The performing lab is in the report. Potassium molar conc 4.1 mmol/L Normal 3.5-5.1 [facility] Comment on above: Performed By: #### M G3, BMP3 ####The performing lab is in the report. Chloride molar conc 101 mmol/L Normal 98-107 [facility] Comment on above: Performed By: #### M G3, BMP3 ####The performing lab is in the report. Sodium molar conc 138 mmol/L Normal 137-145 [facility] Comment on above: Performed By: #### M G3, BMP3 ####The performing lab is in the report. CR Chest Portableon 10-26-19 18 CR Chest Portable Patient Name: JAMES REYES Diagnostic Radiology Exam Date/Time 10/25/2017 10:26:30 EDT Exam CR Chest Portable Ordering Physician JACQUES WADE Accession Number [id number] CPT4 Codes 70918 () Reason For Exam line repositioned Report [...] Transcribed Date and Time: 10/25/2017 12:47 Normal [facility] Glucose,Bedsideon 10-25-2017 Glucose mass conc 149 mg/dL High 70-100 [facility] Comment on above: Result Comment: Test performed by glucose meter. Results may be 10%-15% lowerthan serum/plasma values. (CLIA ID [id number]) Performed By: #### M G3, BMP3 ####The performing lab is in the report. Glucose mass conc 162 mg/dL High 70-100 [facility] Comment on above: Result Comment: Test performed by glucose meter. Results may be 10%-15% lowerthan serum/plasma values. (CLIA ID [id number]) Performed By: #### M G3, BMP3 ####The performing lab is in the report. Glucose mass conc 168 mg/dL High 70-100 [facility] Comment on above: Result Comment: Test performed by glucose meter. Results may be 10%-15% lowerthan serum/plasma values. (CLIA ID [id number]) Performed By: #### M G3, BMP3 ####The performing lab is in the report. Glucose mass conc 164 mg/dL High 70-100 [facility] Comment on above: Result Comment: Test performed by glucose meter. Results may be 10%-15% lowerthan serum/plasma values. (CLIA ID [id number]) Performed By: #### M G3, BMP3 ####The performing lab is in the report. Hemogram w/ Autodiffon 10-25 Abs Baso Cnt 0.0 10*3/uL Normal 0.0-0.2 [facility] Comment on above: Performed By: #### Ap G3, BMP3 ####The performing lab is in the report. Abs Neutrophile Cnt 7.5 10*3/uL High 1.8-7.0 [facility] Comment on above: Performed By: #### Ap G3, BMP3 ####The performing lab is in the report. Basophils/100 WBC Auto (Bld) 0.5 % Normal 0.0-2.0 [facility] Comment on above: Performed By: #### Ap G3, BMP3 ####The performing lab is in the report. Eosinophils Auto #/vol (Bld) 0.1 10*3/uL Normal 0.0-0.5 [facility] Comment on above: Performed By: #### Ap G3, BMP3 ####The performing lab is in the report. Eosinophils/100 WBC Auto (Bld) 0.8 % Low 1.0-6.0 [facility] Comment on above: Performed By: #### Ap Sanchez, BMP3 ####The performing lab is in the report. Erythrocyte distribution width Auto Ratio (RBC) 16.2 % High 11.5-14.5 [facility] Comment on above: Performed By: #### Ap G3, BMP3 ####The performing lab is in the report. Granulocytes/100 WBC (Bld) 82.8 % High 40.0-80.0 [facility] Comment on above: Performed By: #### Ap G3, BMP3 ####The performing lab is in the report. Hematocrit Auto Volume Fraction (Bld) 26.7 % Low 40.0-52.0 [facility] Comment on above: Performed By: #### Ap G3, BMP3 ####The performing lab is in the report. Hemoglobin mass conc (Bld) 8.8 g/dL Low 13.0-18.0 [facility] Comment on above: Performed By: #### Ap G3, BMP3 ####The performing lab is in the report. Lymphocytes Auto #/vol (Bld) 0.5 10*3/uL Low 1.0-4.3 [facility] Comment on above: Performed By: #### Ap G3, BMP3 ####The performing lab is in the report. Lymphocytes/100 WBC Auto (Bld) 5.8 % Low 20.0-40.0 [facility] Comment on above: Performed By: #### Ap G3, BMP3 ####The performing lab is in the report. MCH Auto Entitic mass (RBC) 27.8 pg Normal 26.0-34.0 [facility] Comment on above: Performed By: #### Ap G3, BMP3 ####The performing lab is in the report. MCHC Auto mass conc (RBC) 33.1 % Normal 32.0-36.0 [facility] Comment on above: Performed By: #### Ap Sanchez, BMP3 ####The performing lab is in the report. MCV Auto Entitic volume (RBC) 84.1 fL Normal 80.0-98.0 [facility] Comment on above: Performed By: #### Ap G3, BMP3 ####The performing lab is in the report. Monocytes Auto #/vol (Bld) 0.9 10*3/uL High 0.0-0.8 [facility] Comment on above: Performed By: #### Ap G3, BMP3 ####The performing lab is in the report. Monocytes/100 WBC Auto (Bld) 10.1 % High 2.0-10.0 [facility] Comment on above: Performed By: #### Ap G3, BMP3 ####The performing lab is in the report. Platelet mean volume Auto Entitic volume (Bld) 8.4 fL Normal 7.4-10.4 [facility] Comment on above: Performed By: #### Ap G3, BMP3 ####The performing lab is in the report. Platelets Auto #/vol (Bld) 250 10*3/uL Normal 140-440 [facility] Comment on above: Performed By: #### Ap G3, BMP3 ####The performing lab is in the report. RBC Auto #/vol (Bld) 3.17 10*6/uL Low 4.40-5.90 [facility] Comment on above: Performed By: #### M G3, BMP3 ####The performing lab is in the report. WBC Auto #/vol (Bld) 9.0 10*3/uL Normal 3.6-10.7 [facility] Comment on above: Performed By: #### M G3, BMP3 ####The performing lab is in the report. Magnesiumon 10-25-2017 Magnesium mass conc 1.7 mg/dL Normal 1.6-2.3 [facility] Comment on above: Performed By: #### M G3, BMP3 ####The performing lab is in the report. Phosphoruson 10-25-2017 Phosphate mass conc 3.1 mg/dL Normal 2.5-4.5 [facility] Comment on above: Performed By: #### M G3, BMP3 ####The performing lab is in the report. Procalcitoninon 10-25-2017 Protein mass conc g/dL Normal <0.10 [facility] Comment on above: Performed By: #### M G3, BMP3 ####The performing lab is in the report. Arterial Blood Gaseson 10-24 HCO3 molar conc (Bld) 27.9 mmol/L High 21.0-25.0 [facility] Comment on above: Performed By: #### M G3, BMP3 ####The performing lab is in the report. Hemoglobin mass conc (Bld) 9.3 g/dL Normal ScreenOnly [facility] Comment on above: Performed By: #### M G3, BMP3 ####The performing lab is in the report. Oxygen ppres (BldA) 103.5 mm[Hg] High 80.0-100.0 [facility] Comment on above: Performed By: #### M G3, BMP3 ####The performing lab is in the report. Oxygen saturation in Blood 97.1 % Normal 95.0-100.0 [facility] Comment on above: Performed By: #### M G3, BMP3 ####The performing lab is in the report. pCO2 42.1 mm[Hg] Normal 35.0-45.0 [facility] Comment on above: Performed By: #### M G3, BMP3 ####The performing lab is in the report. pH (Bld) 7.439 Normal 7.350-7.450 [facility] Comment on above: Performed By: #### M G3, BMP3 ####The performing lab is in the report. Std Base Excess 3.4 mmol/L High -3.0-3.0 [facility] Comment on above: Performed By: #### M G3, BMP3 ####The performing lab is in the report. TCO2 29.2 mmol/L High 23.0-27.0 [facility] Comment on above: Performed By: #### M G3, BMP3 ####The performing lab is in the report. FIO2 4 L Normal [facility] Comment on above: Performed By: #### Ap G3, BMP3 ####The performing lab is in the report. Basic Metabolic Panelon 07- Anion gap 3 molar conc 7 Normal [facility] Comment on above: Performed By: #### M G3, BMP3 ####The performing lab is in the report. Calcium mass conc 9.2 mg/dL Normal 8.4-10.4 [facility] Comment on above: Performed By: #### M G3, BMP3 ####The performing lab is in the report. Chloride molar conc 102 mmol/L Normal 98-107 [facility] Comment on above: Performed By: #### M G3, BMP3 ####The performing lab is in the report. CO2 molar conc 29 mmol/L Normal 22-30 [facility] Comment on above: Performed By: #### M G3, BMP3 ####The performing lab is in the report. Creatinine mass conc 0.89 mg/dL Normal 0.52-1.25 [facility] Comment on above: Performed By: [...] MDRD vol rate/area (S/P/Bld) mL/min/{1.73_m2} Normal >60 [facility] Comment on above: Result Comment: Sour ce- MDRD equation with creatinine calibration to IDMS(NKDEP) eGFR not recommended for drug dose adjustment Performed By: #### M G3, BMP3 ####The performing lab is in the report. Glucose mass conc 110 mg/dL High 70-100 [facility] Comment on above: Performed By: #### M G3, BMP3 ####The performing lab is in the report. Potassium molar conc 3.8 mmol/L Normal 3.5-5.1 [facility] Comment on above: Performed By: #### M G3, BMP3 ####The performing lab is in the report. Sodium molar conc 137 mmol/L Normal 137-145 [facility] Comment on above: Result Comment: Down time Data Recovery: Caution when interpreting results with collectiondate & time. Performed By: #### M G3, BMP3 ####The performing lab is in the report. Urea nitrogen mass conc 26 mg/dL High 7-20 [facility] Comment on above: Performed By: #### M G3, BMP3 ####The performing lab is in the report. CR Chest Portableon 10-25-19 18 CR Chest Portable Patient Name: JAMES REYES Diagnostic Radiology Exam Date/Time 10/24/2017 18:18:27 EDT Exam CR Chest Portable Ordering Physician ERIC DENNEY D.O. Accession Number [id number] CPT4 Codes 11974 () Reason For Exam acute hypoxic respiratory [...] Time: 10/24/2017 7:34 Normal [facility] Glucose,Bedsideon 10-24-2017 Glucose mass conc 160 mg/dL High 70-100 [facility] Comment on above: Result Comment: Test performed by glucose meter. Results may be 10%-15% lowerthan serum/plasma values. (CLIA ID [id number]) Performed By: #### M G3, BMP3 ####The performing lab is in the report. Glucose mass conc 163 mg/dL High 70-100 [facility] Comment on above: Result Comment: Test performed by glucose meter. Results may be 10%-15% lowerthan serum/plasma values. (CLIA ID [id number]) Performed By: #### M G3, BMP3 ####The performing lab is in the report. Glucose mass conc 127 mg/dL High 70-100 [facility] Comment on above: Result Comment: Test performed by glucose meter. Results may be 10%-15% lowerthan serum/plasma values. (CLIA ID [id number]) Performed By: #### M G3, BMP3 ####The performing lab is in the report. Hemogram w/ Autodiffon 10-24 Abs Baso Cnt 0.0 10*3/uL Normal 0.0-0.2 [facility] Comment on above: Performed By: #### M G3, BMP3 ####The performing lab is in the report. Abs Neutrophile Cnt 3.5 10*3/uL Normal 1.8-7.0 [facility] Comment on above: Performed By: #### M G3, BMP3 ####The performing lab is in the report. Basophils/100 WBC Auto (Bld) 0.9 % Normal 0.0-2.0 [facility] Comment on above: Performed By: #### M G3, BMP3 ####The performing lab is in the report. Eosinophils Auto #/vol (Bld) 0.1 10*3/uL Normal 0.0-0.5 [facility] Comment on above: Performed By: #### Ap G3, BMP3 ####The performing lab is in the report. Eosinophils/100 WBC Auto (Bld) 1.8 % Normal 1.0-6.0 [facility] Comment on above: Performed By: #### Ap G3, BMP3 ####The performing lab is in the report. Erythrocyte distribution width Auto Ratio (RBC) 15.9 % High 11.5-14.5 [facility] Comment on above: Performed By: #### Ap G3, BMP3 ####The performing lab is in the report. Granulocytes/100 WBC (Bld) 67.5 % Normal 40.0-80.0 [facility] Comment on above: Performed By: #### Ap G3, BMP3 ####The performing lab is in the report. Hematocrit Auto Volume Fraction (Bld) 29.4 % Low 40.0-52.0 [facility] Comment on above: Performed By: #### Ap G3, BMP3 ####The performing lab is in the report. Hemoglobin mass conc (Bld) 9.6 g/dL Low 13.0-18.0 [facility] Comment on above: Performed By: #### Ap G3, BMP3 ####The performing lab is in the report. Lymphocytes Auto #/vol (Bld) 0.9 10*3/uL Low 1.0-4.3 [facility] Comment on above: Performed By: #### Ap G3, BMP3 ####The performing lab is in the report. Lymphocytes/100 WBC Auto (Bld) 18.3 % Low 20.0-40.0 [facility] Comment on above: Performed By: #### Ap G3, BMP3 ####The performing lab is in the report. MCH Auto Entitic mass (RBC) 27.5 pg Normal 26.0-34.0 [facility] Comment on above: Performed By: #### M G3, BMP3 ####The performing lab is in the report. MCHC Auto mass conc (RBC) 32.8 % Normal 32.0-36.0 [facility] Comment on above: Performed By: #### M G3, BMP3 ####The performing lab is in the report. MCV Auto Entitic volume (RBC) 84.0 fL Normal 80.0-98.0 [facility] Comment on above: Performed By: #### M G3, BMP3 ####The performing lab is in the report. Monocytes Auto #/vol (Bld) 0.6 10*3/uL Normal 0.0-0.8 [facility] Comment on above: Performed By: #### M G3, BMP3 ####The performing lab is in the report. Monocytes/100 WBC Auto (Bld) 11.5 % High 2.0-10.0 [facility] Comment on above: Performed By: #### Ap G3, BMP3 ####The performing lab is in the report. Platelet mean volume Auto Entitic volume (Bld) 8.8 fL Normal 7.4-10.4 [facility] Comment on above: Performed By: #### M G3, BMP3 ####The performing lab is in the report. Platelets Auto #/vol (Bld) 286 10*3/uL Normal 140-440 [facility] Comment on above: Performed By: #### M G3, BMP3 ####The performing lab is in the report. RBC Auto #/vol (Bld) 3.49 10*6/uL Low 4.40-5.90 [facility] Comment on above: Performed By: #### M G3, BMP3 ####The performing lab is in the report. WBC Auto #/vol (Bld) 5.2 10*3/uL Normal 3.6-10.7 [facility] Comment on above: Performed By: #### M G3, BMP3 ####The performing lab is in the report. Procalcitoninon 10-24-2017 Interpretation See Below Normal [facility] Comment on above: Result Comment: PCT <0.50 = Low risk of severe sepsis and/or septic shock.PCT >2.00 = High risk of severe sepsis and/or septic shock. Performed By: #### M BELINDA Sanchez ####The performing lab is in the report. Surgical Pathologyon 018 Surgical Pathology [id number] [facility] PATHOLOGY AND LABORATORY MEDICINE [address] [place] [id number] FINAL SURGICAL PATHOLOGY REPORT NAME: AMYJAMES Joyce .O.B.: 1955 62 Y M [facility] NO.: [id number]: [id number] PROCEDURE 10/24/2017 DATE:SURGEON: MELQUIADES [...] submitted in a single cassette.(bits ss, 1) JCK/JAFDisclaimer: The following statement applies to allimmunohistochemistry , in situ hybridization, molecular studies, andimmunofluorescence testing.The use of one or more reagents in the above tests is regulated as ananalyte specific reagent (ASR). These tests were developed and theirperformance characteristics determined by the clinical laboratories [facility]. They have not been cleared by [...] false negativity on decalcified specimens.Professional Performing Location: [place] [address]. DEPARTMENT OF PATHOLOGY AND LABORATORY MEDICINE [place], [place] [address] Normal [facility] Basic Metabolic Panelon 07-0 Calcium mass conc 9.3 mg/dL Normal 8.4-10.4 [facility] Comment on above: Performed By: #### M G3 BMP3 ####The performing lab is in the report. Glucose mass conc 90 mg/dL Normal 70-100 [facility] Comment on above: Performed By: #### M G3 BMP3 ####The performing lab is in the report. Urea nitrogen mass conc 24 mg/dL High 7-20 [facility] Comment on above: Performed By: #### M G3, BMP3 ####The performing lab is in the report. Anion gap 3 molar conc 6 Normal [facility] Comment on above: Performed By: #### M G3, BMP3 ####The performing lab is in the report. CO2 molar conc 28 mmol/L Normal 22-30 [facility] Comment on above: Performed By: #### M G3, BMP3 ####The performing lab is in the report. Creatinine mass conc 0.86 mg/dL Normal 0.52-1.25 [facility] Comment on above: Performed By: #### M G3, BMP3 ####The performing lab is in the report. GFR/1.73 sq M predicted among blacks MDRD vol rate/area (S/P/Bld) mL/min/{1.73_m2} Normal >60 [facility] Comment on above: Performed By: #### M G3, BMP3 ####The performing lab is in the report. GFR/1.73 sq M predicted among non-blacks MDRD vol rate/area (S/P/Bld) mL/min/{1.73_m2} Normal >60 [facility] Comment on above: Result Comment: Sour ce- MDRD equation with creatinine calibration to IDMS(NKDEP) eGFR not recommended for drug dose adjustment Performed By: #### M G3, BMP3 ####The performing lab is in the report. Potassium molar conc 3.8 mmol/L Normal 3.5-5.1 [facility] Comment on above: Performed By: #### Ap G3, BMP3 ####The performing lab is in the report. Chloride molar conc 103 mmol/L Normal 98-107 [facility] Comment on above: Performed By: #### M G3, BMP3 ####The performing lab is in the report. Sodium molar conc 138 mmol/L Normal 137-145 [facility] Comment on above: Performed By: #### M G3, BMP3 ####The performing lab is in the report. Glucose,Bedsideon 10-23-2017 Glucose mass conc 166 mg/dL High 70-100 [facility] Comment on above: Result Comment: Test performed by glucose meter. Results may be 10%-15% lowerthan serum/plasma values. (CLIA ID [id number]) Performed By: #### M G3, BMP3 ####The performing lab is in the report. Glucose mass conc 123 mg/dL High 70-100 [facility] Comment on above: Result Comment: Test performed by glucose meter. Results may be 10%-15% lowerthan serum/plasma values. (CLIA ID [id number]) Performed By: #### M G3, BMP3 ####The performing lab is in the report. Glucose mass conc 141 mg/dL High 70-100 [facility] Comment on above: Result Comment: Test performed by glucose meter. Results may be 10%-15% lowerthan serum/plasma values. (CLIA ID [id number]) Performed By: #### M G3, BMP3 ####The performing lab is in the report. Glucose mass conc 107 mg/dL High 70-100 [facility] Comment on above: Result Comment: Test performed by glucose meter. Results may be 10%-15% lowerthan serum/plasma values. (CLIA ID [id number]) Performed By: #### Ap G3, BMP3 ####The performing lab is in the report. Hemogram w/ Autodiffon 10-23 Abs Baso Cnt 0.0 10*3/uL Normal 0.0-0.2 [facility] Comment on above: Performed By: #### M G3, BMP3 ####The performing lab is in the report. Abs Neutrophile Cnt 3.3 10*3/uL Normal 1.8-7.0 [facility] Comment on above: Performed By: #### M G3, BMP3 ####The performing lab is in the report. Basophils/100 WBC Auto (Bld) 0.7 % Normal 0.0-2.0 [facility] Comment on above: Performed By: #### M G3, BMP3 ####The performing lab is in the report. Eosinophils Auto #/vol (Bld) 0.1 10*3/uL Normal 0.0-0.5 [facility] [employer] [facility] Comment on above: Performed By: #### Ap G3, BMP3 ####The performing lab is in the report. Eosinophils/100 WBC Auto (Bld) 2.1 % Normal 1.0-6.0 [facility] Comment on above: Performed By: #### Ap G3, BMP3 ####The performing lab is in the report. Erythrocyte distribution width Auto Ratio (RBC) 15.9 % High 11.5-14.5 [facility] Comment on above: Performed By: #### Ap G3, BMP3 ####The performing lab is in the report. Granulocytes/100 WBC (Bld) 67.4 % Normal 40.0-80.0 [facility] Comment on above: Performed By: #### Ap G3, BMP3 ####The performing lab is in the report. Hematocrit Auto Volume Fraction (Bld) 29.3 % Low 40.0-52.0 [facility] Comment on above: Performed By: #### Ap G3, BMP3 ####The performing lab is in the report. Hemoglobin mass conc (Bld) 9.6 g/dL Low 13.0-18.0 [facility] Comment on above: Performed By: #### Ap G3, BMP3 ####The performing lab is in the report. Lymphocytes Auto #/vol (Bld) 0.9 10*3/uL Low 1.0-4.3 [facility] Comment on above: Performed By: #### Ap G3, BMP3 ####The performing lab is in the report. Lymphocytes/100 WBC Auto (Bld) 17.6 % Low 20.0-40.0 [facility] Comment on above: Performed By: #### Ap G3, BMP3 ####The performing lab is in the report. MCH Auto Entitic mass (RBC) 27.5 pg Normal 26.0-34.0 [facility] Comment on above: Performed By: #### Ap G3, BMP3 ####The performing lab is in the report. MCHC Auto mass conc (RBC) 32.9 % Normal 32.0-36.0 [facility] Comment on above: Performed By: #### Ap G3, BMP3 ####The performing lab is in the report. MCV Auto Entitic volume (RBC) 83.8 fL Normal 80.0-98.0 [facility] Comment on above: Performed By: #### Ap G3, BMP3 ####The performing lab is in the report. Monocytes Auto #/vol (Bld) 0.6 10*3/uL Normal 0.0-0.8 [facility] Comment on above: Performed By: #### Ap G3, BMP3 ####The performing lab is in the report. Monocytes/100 WBC Auto (Bld) 12.2 % High 2.0-10.0 [facility] Comment on above: Performed By: #### Ap G3, BMP3 ####The performing lab is in the report. Platelet mean volume Auto Entitic volume (Bld) 8.5 fL Normal 7.4-10.4 [facility] Comment on above: Performed By: #### Ap G3, BMP3 ####The performing lab is in the report. Platelets Auto #/vol (Bld) 266 10*3/uL Normal 140-440 [facility] Comment on above: Performed By: #### Ap G3, BMP3 ####The performing lab is in the report. RBC Auto #/vol (Bld) 3.49 10*6/uL Low 4.40-5.90 [facility] Comment on above: Performed By: #### Ap G3, BMP3 ####The performing lab is in the report. WBC Auto #/vol (Bld) 4.9 10*3/uL Normal 3.6-10.7 [facility] Comment on above: Performed By: #### Ap G3, BMP3 ####The performing lab is in the report. Basic Metabolic Panelon 07-0 Anion gap 3 molar conc 5 Normal [facility] Comment on above: Performed By: #### Ap G3, BMP3 ####The performing lab is in the report. Calcium mass conc 9.2 mg/dL Normal 8.4-10.4 [facility] Comment on above: Performed By: #### Ap G3, BMP3 ####The performing lab is in the report. CO2 molar conc 30 mmol/L Normal 22-30 [facility] Comment on above: Performed By: #### M G3, BMP3 ####The performing lab is in the report. Glucose mass conc 72 mg/dL Normal 70-100 [facility] Comment on above: Performed By: #### M G3, BMP3 ####The performing lab is in the report. Urea nitrogen mass conc 21 mg/dL High 7-20 [facility] Comment on above: Performed By: #### Ap G3, BMP3 ####The performing lab is in the report. Creatinine mass conc 0.86 mg/dL Normal 0.52-1.25 [facility] Comment on above: Performed By: #### Ap G3, BMP3 ####The performing lab is in the report. GFR/1.73 sq M predicted among blacks MDRD vol rate/area (S/P/Bld) mL/min/{1.73_m2} Normal >60 [facility] Comment on above: Performed By: #### Ap G3, BMP3 ####The performing lab is in the report. GFR/1.73 sq M predicted among non-blacks MDRD vol rate/area (S/P/Bld) mL/min/{1.73_m2} Normal >60 [facility] Comment on above: Result Comment: Sour ce- MDRD equation with creatinine calibration to IDMS(NKDEP) eGFR not recommended for drug dose adjustment Performed By: #### Ap G3, BMP3 ####The performing lab is in the report. Potassium molar conc 3.4 mmol/L Low 3.5-5.1 [facility] Comment on above: Performed By: #### Ap G3, BMP3 ####The performing lab is in the report. Sodium molar conc 137 mmol/L Normal 137-145 [facility] Comment on above: Performed By: #### Ap G3, BMP3 ####The performing lab is in the report. Chloride molar conc 101 mmol/L Normal 98-107 [facility] Comment on above: Performed By: #### Ap G3, BMP3 ####The performing lab is in the report. CULTURE ANAEROBEon 8 CULTURE ANAEROBE CULTURE ANAEROBE --> Status: F No growth of anaerobes at 5 days. Normal [facility] Comment on above: Order Comment: or co llected Performed By: #### H EMDF, APTT, HA1C2 ####The performing lab is in the report. Glucose,Bedsideon 10-22-2017 Glucose mass conc 112 mg/dL High 70-100 [facility] Comment on above: Result Comment: Test performed by glucose meter. Results may be 10%-15% lowerthan serum/plasma values. (CLIA ID [id number]) Performed By: #### M G3, BMP3 ####The performing lab is in the report. Glucose mass conc 116 mg/dL High 70-100 [facility] Comment on above: Result Comment: Test performed by glucose meter. Results may be 10%-15% lowerthan serum/plasma values. (CLIA ID [id number]) Performed By: #### M G3, BMP3 ####The performing lab is in the report. Glucose mass conc 159 mg/dL High 70-100 [facility] Comment on above: Result Comment: Test performed by glucose meter. Results may be 10%-15% lowerthan serum/plasma values. (CLIA ID [id number]) Performed By: #### M G3, BMP3 ####The performing lab is in the report. Glucose mass conc 101 mg/dL High 70-100 [facility] Comment on above: Result Comment: Test performed by glucose meter. Results may be 10%-15% lowerthan serum/plasma values. (CLIA ID [id number]) Performed By: #### M G3, BMP3 ####The performing lab is in the report. Hemogram w/ Autodiffon 10-22 Abs Baso Cnt 0.0 10*3/uL Normal 0.0-0.2 [facility] Comment on above: Performed By: #### M G3, BMP3 ####The performing lab is in the report. Abs Neutrophile Cnt 4.0 10*3/uL Normal 1.8-7.0 [facility] Comment on above: Performed By: #### M G3, BMP3 ####The performing lab is in the report. Basophils/100 WBC Auto (Bld) 0.7 % Normal 0.0-2.0 [facility] Comment on above: Performed By: #### M G3, BMP3 ####The performing lab is in the report. Eosinophils Auto #/vol (Bld) 0.2 10*3/uL Normal 0.0-0.5 [facility] Comment on above: Performed By: #### Ap G3, BMP3 ####The performing lab is in the report. Eosinophils/100 WBC Auto (Bld) 2.9 % Normal 1.0-6.0 [facility] Comment on above: Performed By: #### Ap G3, BMP3 ####The performing lab is in the report. Erythrocyte distribution width Auto Ratio (RBC) 16.0 % High 11.5-14.5 [facility] Comment on above: Performed By: #### Ap G3, BMP3 ####The performing lab is in the report. Granulocytes/100 WBC (Bld) 69.4 % Normal 40.0-80.0 [facility] Comment on above: Performed By: #### Ap G3, BMP3 ####The performing lab is in the report. Hematocrit Auto Volume Fraction (Bld) 29.9 % Low 40.0-52.0 [facility] Comment on above: Performed By: #### Ap G3, BMP3 ####The performing lab is in the report. Hemoglobin mass conc (Bld) 10.0 g/dL Low 13.0-18.0 [facility] Comment on above: Performed By: #### Ap G3, BMP3 ####The performing lab is in the report. Lymphocytes Auto #/vol (Bld) 0.9 10*3/uL Low 1.0-4.3 [facility] Comment on above: Performed By: #### Ap G3, BMP3 ####The performing lab is in the report. Lymphocytes/100 WBC Auto (Bld) 16.3 % Low 20.0-40.0 [facility] Comment on above: Performed By: #### Ap G3, BMP3 ####The performing lab is in the report. MCH Auto Entitic mass (RBC) 28.1 pg Normal 26.0-34.0 [facility] Comment on above: Performed By: #### Ap G3, BMP3 ####The performing lab is in the report. MCHC Auto mass conc (RBC) 33.4 % Normal 32.0-36.0 [facility] Comment on above: Performed By: #### Ap G3, BMP3 ####The performing lab is in the report. MCV Auto Entitic volume (RBC) 84.2 fL Normal 80.0-98.0 [facility] Comment on above: Performed By: #### Ap G3, BMP3 ####The performing lab is in the report. Monocytes Auto #/vol (Bld) 0.6 10*3/uL Normal 0.0-0.8 [facility] Comment on above: Performed By: #### Ap G3, BMP3 ####The performing lab is in the report. Monocytes/100 WBC Auto (Bld) 10.7 % High 2.0-10.0 [facility] Comment on above: Performed By: #### Ap G3, BMP3 ####The performing lab is in the report. Platelet mean volume Auto Entitic volume (Bld) 8.5 fL Normal 7.4-10.4 [facility] Comment on above: Performed By: #### Ap G3, BMP3 ####The performing lab is in the report. Platelets Auto #/vol (Bld) 284 10*3/uL Normal 140-440 [facility] Comment on above: Performed By: #### Ap G3, BMP3 ####The performing lab is in the report. RBC Auto #/vol (Bld) 3.55 10*6/uL Low 4.40-5.90 [facility] Comment on above: Performed By: #### Ap G3, BMP3 ####The performing lab is in the report. WBC Auto #/vol (Bld) 5.7 10*3/uL Normal 3.6-10.7 [facility] Comment on above: Performed By: #### Ap G3, BMP3 ####The performing lab is in the report. Basic Metabolic Panelon 07- Calcium mass conc 8.9 mg/dL Normal 8.4-10.4 [facility] Comment on above: Performed By: #### Ap G3, BMP3 ####The performing lab is in the report. Glucose mass conc 70 mg/dL Normal 70-100 [facility] Comment on above: Performed By: #### Ap G3, BMP3 ####The performing lab is in the report. Anion gap 3 molar conc 5 Normal [facility] Comment on above: Performed By: #### Ap G3, BMP3 ####The performing lab is in the report. CO2 molar conc 29 mmol/L Normal 22-30 [facility] Comment on above: Performed By: #### Ap G3, BMP3 ####The performing lab is in the report. Creatinine mass conc 0.78 mg/dL Normal 0.52-1.25 [facility] Comment on above: Performed By: #### Ap G3, BMP3 ####The performing lab is in the report. GFR/1.73 sq M predicted among blacks MDRD vol rate/area (S/P/Bld) mL/min/{1.73_m2} Normal >60 [facility] Comment on above: Performed By: #### Ap G3, BMP3 ####The performing lab is in the report. GFR/1.73 sq M predicted among non-blacks MDRD vol rate/area (S/P/Bld) mL/min/{1.73_m2} Normal >60 [facility] Comment on above: Result Comment: Sour ce- MDRD equation with creatinine calibration to IDMS(NKDEP) eGFR not recommended for drug dose adjustment Performed By: #### Ap G3, BMP3 ####The performing lab is in the report. Urea nitrogen mass conc 15 mg/dL Normal 7-20 [facility] Comment on above: Performed By: #### Ap G3, BMP3 ####The performing lab is in the report. Chloride molar conc 104 mmol/L Normal 98-107 [facility] Comment on above: Performed By: #### Ap G3, BMP3 ####The performing lab is in the report. Potassium molar conc 3.5 mmol/L Normal 3.5-5.1 [facility] Comment on above: Performed By: #### M G3, BMP3 ####The performing lab is in the report. Sodium molar conc 137 mmol/L Normal 137-145 [facility] Comment on above: Performed By: #### M G3, BMP3 ####The performing lab is in the report. Glucose,Bedsideon 10-21-2017 Glucose mass conc 93 mg/dL Normal 70-100 [facility] Comment on above: Result Comment: Test performed by glucose meter. Results may be 10%-15% lowerthan serum/plasma values. (CLIA ID [id number]) Performed By: #### M G3, BMP3 ####The performing lab is in the report. Glucose mass conc 137 mg/dL High 70-100 [facility] Comment on above: Result Comment: Test performed by glucose meter. Results may be 10%-15% lowerthan serum/plasma values. (CLIA ID [id number]) Performed By: #### M G3, BMP3 ####The performing lab is in the report. Glucose mass conc 91 mg/dL Normal 70-100 [facility] Comment on above: Result Comment: Test performed by glucose meter. Results may be 10%-15% lowerthan serum/plasma values. (CLIA ID [id number]) Performed By: #### M G3, BMP3 ####The performing lab is in the report. Glucose mass conc 99 mg/dL Normal 70-100 [facility] Comment on above: Result Comment: Test performed by glucose meter. Results may be 10%-15% lowerthan serum/plasma values. (CLIA ID [id number]) Performed By: #### M G3, BMP3 ####The performing lab is in the report. Glucose mass conc 93 mg/dL Normal 70-100 [facility] Comment on above: Result Comment: Test performed by glucose meter. Results may be 10%-15% lowerthan serum/plasma values. (CLIA ID [id number]) Performed By: #### M G3, BMP3 ####The performing lab is in the report. Hemogram w/ Autodiffon 10-21 Abs Baso Cnt 0.0 10*3/uL Normal 0.0-0.2 [facility] Comment on above: Performed By: #### M G3, BMP3 ####The performing lab is in the report. Abs Neutrophile Cnt 3.4 10*3/uL Normal 1.8-7.0 [facility] Comment on above: Performed By: #### M G3, BMP3 ####The performing lab is in the report. Basophils/100 WBC Auto (Bld) 0.8 % Normal 0.0-2.0 [facility] Comment on above: Performed By: #### Ap G3, BMP3 ####The performing lab is in the report. Eosinophils Auto #/vol (Bld) 0.1 10*3/uL Normal 0.0-0.5 [facility] Comment on above: Performed By: #### Ap G3, BMP3 ####The performing lab is in the report. Eosinophils/100 WBC Auto (Bld) 2.3 % Normal 1.0-6.0 [facility] Comment on above: Performed By: #### Ap G3, BMP3 ####The performing lab is in the report. Erythrocyte distribution width Auto Ratio (RBC) 15.6 % High 11.5-14.5 [facility] Comment on above: Performed By: #### M G3, BMP3 ####The performing lab is in the report. Granulocytes/100 WBC (Bld) 68.1 % Normal 40.0-80.0 [facility] Comment on above: Performed By: #### Ap G3, BMP3 ####The performing lab is in the report. Hematocrit Auto Volume Fraction (Bld) 28.9 % Low 40.0-52.0 [facility] Comment on above: Performed By: #### Ap G3, BMP3 ####The performing lab is in the report. Hemoglobin mass conc (Bld) 9.5 g/dL Low 13.0-18.0 [facility] Comment on above: Performed By: #### Ap G3, BMP3 ####The performing lab is in the report. Lymphocytes Auto #/vol (Bld) 0.8 10*3/uL Low 1.0-4.3 [facility] Comment on above: Performed By: #### Ap G3, BMP3 ####The performing lab is in the report. Lymphocytes/100 WBC Auto (Bld) 16.5 % Low 20.0-40.0 [facility] Comment on above: Performed By: #### Ap G3, BMP3 ####The performing lab is in the report. MCH Auto Entitic mass (RBC) 27.7 pg Normal 26.0-34.0 [facility] Comment on above: Performed By: #### Ap G3, BMP3 ####The performing lab is in the report. MCHC Auto mass conc (RBC) 32.8 % Normal 32.0-36.0 [facility] Comment on above: Performed By: #### Ap G3, BMP3 ####The performing lab is in the report. MCV Auto Entitic volume (RBC) 84.4 fL Normal 80.0-98.0 [facility] Comment on above: Performed By: #### Ap G3, BMP3 ####The performing lab is in the report. Monocytes Auto #/vol (Bld) 0.6 10*3/uL Normal 0.0-0.8 [facility] Comment on above: Performed By: #### Ap G3, BMP3 ####The performing lab is in the report. Monocytes/100 WBC Auto (Bld) 12.3 % High 2.0-10.0 [facility] Comment on above: Performed By: #### Ap G3, BMP3 ####The performing lab is in the report. Platelet mean volume Auto Entitic volume (Bld) 8.8 fL Normal 7.4-10.4 [facility] Comment on above: Performed By: #### Ap G3, BMP3 ####The performing lab is in the report. Platelets Auto #/vol (Bld) 290 10*3/uL Normal 140-440 [facility] Comment on above: Performed By: #### Ap G3, BMP3 ####The performing lab is in the report. RBC Auto #/vol (Bld) 3.43 10*6/uL Low 4.40-5.90 [facility] Comment on above: Performed By: #### M G3, BMP3 ####The performing lab is in the report. WBC Auto #/vol (Bld) 5.0 10*3/uL Normal 3.6-10.7 [facility] Comment on above: Performed By: #### M G3, BMP3 ####The performing lab is in the report. Basic Metabolic Panelon 07-0 Anion gap 3 molar conc 5 Normal [facility] Comment on above: Performed By: #### H EMDF, APTT, HA1C2 ####The performing lab is in the report. Calcium mass conc 9.2 mg/dL Normal 8.4-10.4 [facility] Comment on above: Performed By: #### H EMDF, APTT, HA1C2 ####The performing lab is in the report. CO2 molar conc 30 mmol/L Normal 22-30 [facility] Comment on above: Performed By: #### H EMDF, APTT, HA1C2 ####The performing lab is in the report. Glucose mass conc 239 mg/dL High 70-100 [facility] Comment on above: Performed By: #### H EMDF, APTT, HA1C2 ####The performing lab is in the report. Urea nitrogen mass conc 13 mg/dL Normal 7-20 [facility] Comment on above: Performed By: #### H EMDF, APTT, HA1C2 ####The performing lab is in the report. Creatinine mass conc 0.72 mg/dL Normal 0.52-1.25 [facility] Comment on above: Performed By: #### H EMDF, APTT, HA1C2 ####The performing lab is in the report. GFR/1.73 sq M predicted among blacks MDRD vol rate/area (S/P/Bld) mL/min/{1.73_m2} Normal >60 [facility] Comment on above: Performed By: #### H EMDF, APTT, HA1C2 ####The performing lab is in the report. GFR/1.73 sq M predicted among non-blacks MDRD vol rate/area (S/P/Bld) mL/min/{1.73_m2} Normal >60 [facility] Comment on above: Result Comment: Sour ce- MDRD equation with creatinine calibration to IDMS(NKDEP) eGFR not recommended for drug dose adjustment Performed By: #### H EMDF, APTT, HA1C2 ####The performing lab is in the report. Potassium molar conc 3.9 mmol/L Normal 3.5-5.1 [facility] Comment on above: Performed By: #### H EMDF, APTT, HA1C2 ####The performing lab is in the report. Chloride molar conc 102 mmol/L Normal 98-107 [facility] Comment on above: Performed By: #### H EMDF, APTT, HA1C2 ####The performing lab is in the report. Sodium molar conc 137 mmol/L Normal 137-145 [facility] Comment on above: Performed By: #### [...] 1 S Pip/Tazobactam(MARTITA) <= 4 S Normal [facility] Comment on above: Order Comment: or co llected Performed By: #### H EMDF, APTT, HA1C2 ####The performing lab is in the report. Glucose,Bedsideon 10-20-2017 Glucose mass conc 108 mg/dL High 70-100 [facility] Comment on above: Result Comment: Test performed by glucose meter. Results may be 10%-15% lowerthan serum/plasma values. (CLIA ID [id number]) Performed By: #### M G3, BMP3 ####The performing lab is in the report. Glucose mass conc 131 mg/dL High 70-100 [facility] Comment on above: Result Comment: Test performed by glucose meter. Results may be 10%-15% lowerthan serum/plasma values. (CLIA ID [id number]) Performed By: #### M G3, BMP3 ####The performing lab is in the report. Glucose mass conc 141 mg/dL High 70-100 [facility] Comment on above: Result Comment: Test performed by glucose meter. Results may be 10%-15% lowerthan serum/plasma values. (CLIA ID [id number]) Performed By: #### M G3, BMP3 ####The performing lab is in the report. Glucose mass conc 134 mg/dL High 70-100 [facility] Comment on above: Result Comment: Test performed by glucose meter. Results may be 10%-15% lowerthan serum/plasma values. (CLIA ID [id number]) Performed By: #### H EMDF, APTT, HA1C2 ####The performing lab is in the report. Hemoglobin A1Con 10-20-2017 Glucose mass conc 157 mg/dL Normal [facility] Comment on above: Performed By: #### H EMDF, APTT, HA1C2 ####The performing lab is in the report. Hemoglobin A1c/Hemoglobin.total mass fraction (Bld) 7.1 % High 4.0-5.7 [facility] Comment on above: Result Comment: --Hg bA1C levels may not be accurate in patients who haverenal disease, received recent blood transfusions, are anemic,or who have dyshemoglobinemia. Performed By: #### H EMDF, APTT, HA1C2 ####The performing lab is in the report. Hemogram w/ Autodiffon 10-20 Abs Baso Cnt 0.0 10*3/uL Normal 0.0-0.2 [facility] Comment on above: Performed By: #### H EMDF, APTT, HA1C2 ####The performing lab is in the report. Abs Neutrophile Cnt 3.6 10*3/uL Normal 1.8-7.0 [facility] Comment on above: Performed By: #### H EMDF, APTT, HA1C2 ####The performing lab is in the report. Basophils/100 WBC Auto (Bld) 0.7 % Normal 0.0-2.0 [facility] Comment on above: Performed By: #### H EMDF, APTT, HA1C2 ####The performing lab is in the report. Eosinophils Auto #/vol (Bld) 0.1 10*3/uL Normal 0.0-0.5 [facility] Comment on above: Performed By: #### H EMDF, APTT, HA1C2 ####The performing lab is in the report. Eosinophils/100 WBC Auto (Bld) 2.0 % Normal 1.0-6.0 [facility] Comment on above: Performed By: #### H EMDF, APTT, HA1C2 ####The performing lab is in the report. Erythrocyte distribution width Auto Ratio (RBC) 15.9 % High 11.5-14.5 [facility] Comment on above: Performed By: #### H EMDF, APTT, HA1C2 ####The performing lab is in the report. Granulocytes/100 WBC (Bld) 71.6 % Normal 40.0-80.0 [facility] Comment on above: Performed By: #### H EMDF, APTT, HA1C2 ####The performing lab is in the report. Hematocrit Auto Volume Fraction (Bld) 28.0 % Low 40.0-52.0 [facility] Comment on above: Performed By: #### H EMDF, APTT, HA1C2 ####The performing lab is in the report. Hemoglobin mass conc (Bld) 9.2 g/dL Low 13.0-18.0 [facility] Comment on above: Performed By: #### H EMDF, APTT, HA1C2 ####The performing lab is in the report. Lymphocytes Auto #/vol (Bld) 0.7 10*3/uL Low 1.0-4.3 [facility] Comment on above: Performed By: #### H EMDF, APTT, HA1C2 ####The performing lab is in the report. Lymphocytes/100 WBC Auto (Bld) 13.8 % Low 20.0-40.0 [facility] Comment on above: Performed By: #### H EMDF, APTT, HA1C2 ####The performing lab is in the report. MCH Auto Entitic mass (RBC) 27.8 pg Normal 26.0-34.0 [facility] Comment on above: Performed By: #### H EMDF, APTT, HA1C2 ####The performing lab is in the report. MCHC Auto mass conc (RBC) 32.9 % Normal 32.0-36.0 [facility] Comment on above: Performed By: #### H EMDF, APTT, HA1C2 ####The performing lab is in the report. MCV Auto Entitic volume (RBC) 84.5 fL Normal 80.0-98.0 [facility] Comment on above: Performed By: #### H EMDF, APTT, HA1C2 ####The performing lab is in the report. Monocytes Auto #/vol (Bld) 0.6 10*3/uL Normal 0.0-0.8 [facility] Comment on above: Performed By: #### H EMDF, APTT, HA1C2 ####The performing lab is in the report. Monocytes/100 WBC Auto (Bld) 11.9 % High 2.0-10.0 [facility] Comment on above: Performed By: #### H EMDF, APTT, HA1C2 ####The performing lab is in the report. Platelet mean volume Auto Entitic volume (Bld) 8.1 fL Normal 7.4-10.4 [facility] Comment on above: Performed By: #### H EMDF, APTT, HA1C2 ####The performing lab is in the report. Platelets Auto #/vol (Bld) 305 10*3/uL Normal 140-440 [facility] Comment on above: Performed By: #### H EMDF, APTT, HA1C2 ####The performing lab is in the report. RBC Auto #/vol (Bld) 3.32 10*6/uL Low 4.40-5.90 [facility] Comment on above: Performed By: #### H EMDF, APTT, HA1C2 ####The performing lab is in the report. WBC Auto #/vol (Bld) 5.1 10*3/uL Normal 3.6-10.7 [facility] Comment on above: Performed By: #### H EMDF, APTT, HA1C2 ####The performing lab is in the report. Basic Metabolic Panelon 07-0 Anion gap 3 molar conc 7 Normal [facility] Comment on above: Performed By: #### H EMDF, APTT, HA1C2 ####The performing lab is in the report. Calcium mass conc 9.4 mg/dL Normal 8.4-10.4 [facility] Comment on above: Performed By: #### H EMDF, APTT, HA1C2 ####The performing lab is in the report. CO2 molar conc 29 mmol/L Normal 22-30 [facility] Comment on above: Performed By: #### H EMDF, APTT, HA1C2 ####The performing lab is in the report. Glucose mass conc 110 mg/dL High 70-100 [facility] Comment on above: Performed By: #### H EMDF, APTT, HA1C2 ####The performing lab is in the report. Urea nitrogen mass conc 12 mg/dL Normal 7-20 [facility] Comment on above: Performed By: #### H EMDF, APTT, HA1C2 ####The performing lab is in the report. Creatinine mass conc 0.73 mg/dL Normal 0.52-1.25 [facility] Comment on above: Performed By: #### H EMDF, APTT, HA1C2 ####The performing lab is in the report. GFR/1.73 sq M predicted among blacks MDRD vol rate/area (S/P/Bld) mL/min/{1.73_m2} Normal >60 [facility] Comment on above: Performed By: #### H EMDF, APTT, HA1C2 ####The performing lab is in the report. GFR/1.73 sq M predicted among non-blacks MDRD vol rate/area (S/P/Bld) mL/min/{1.73_m2} Normal >60 [facility] Comment on above: Result Comment: Sour ce- MDRD equation with creatinine calibration to IDMS(NKDEP) eGFR not recommended for drug dose adjustment Performed By: #### H EMDF, APTT, HA1C2 ####The performing lab is in the report. Potassium molar conc 3.9 mmol/L Normal 3.5-5.1 [facility] Comment on above: Performed By: #### H EMDF, APTT, HA1C2 ####The performing lab is in the report. Sodium molar conc 137 mmol/L Normal 137-145 [facility] Comment on above: Performed By: #### H EMDF, APTT, HA1C2 ####The performing lab is in the report. Chloride molar conc 102 mmol/L Normal 98-107 [facility] Comment on above: Performed By: #### H EMDF, APTT, HA1C2 ####The performing lab is in the report. CR Chest Portableon 10-20-19 18 CR Chest Portable Patient Name: JAMES REYES [facility]: [id number] Diagnostic Radiology Exam Date/Time 10/19/2017 18:16:20 EDT Exam CR Chest Portable Ordering Physician JACQUES WADE E Accession Number [id number] CPT4 Codes 13054 () Reason For Exam picc Report PORTABLE [...] Transcribed Date and Time: 10/19/2017 6:17 Normal [facility] Glucose,Bedsideon 10-19-2017 Glucose mass conc 151 mg/dL High 70-100 [facility] Comment on above: Result Comment: Test performed by glucose meter. Results may be 10%-15% lowerthan serum/plasma values. (CLIA ID [id number]) Performed By: #### H EMDF, APTT, HA1C2 ####The performing lab is in the report. Glucose mass conc 115 mg/dL High 70-100 [facility] Comment on above: Result Comment: Test performed by glucose meter. Results may be 10%-15% lowerthan serum/plasma values. (CLIA ID [id number]) Performed By: #### H EMDF, APTT, HA1C2 ####The performing lab is in the report. Glucose mass conc 162 mg/dL High 70-100 [facility] Comment on above: Result Comment: Test performed by glucose meter. Results may be 10%-15% lowerthan serum/plasma values. (CLIA ID [id number]) Performed By: #### H EMDF, APTT, HA1C2 ####The performing lab is in the report. Glucose mass conc 142 mg/dL High 70-100 [facility] Comment on above: Result Comment: Test performed by glucose meter. Results may be 10%-15% lowerthan serum/plasma values. (CLIA ID [id number]) Performed By: #### H EMDF, APTT, HA1C2 ####The performing lab is in the report. Hemogram w/ Autodiffon 10-19 Abs Baso Cnt 0.0 10*3/uL Normal 0.0-0.2 [facility] Comment on above: Performed By: #### H EMDF, APTT, HA1C2 ####The performing lab is in the report. Abs Neutrophile Cnt 3.1 10*3/uL Normal 1.8-7.0 [facility] Comment on above: Performed By: #### H EMDF, APTT, HA1C2 ####The performing lab is in the report. Basophils/100 WBC Auto (Bld) 0.8 % Normal 0.0-2.0 [facility] Comment on above: Performed By: #### H EMDF, APTT, HA1C2 ####The performing lab is in the report. Eosinophils Auto #/vol (Bld) 0.1 10*3/uL Normal 0.0-0.5 [facility] Comment on above: Performed By: #### H EMDF, APTT, HA1C2 ####The performing lab is in the report. Eosinophils/100 WBC Auto (Bld) 2.1 % Normal 1.0-6.0 [facility] Comment on above: Performed By: #### H EMDF, APTT, HA1C2 ####The performing lab is in the report. Erythrocyte distribution width Auto Ratio (RBC) 15.7 % High 11.5-14.5 [facility] Comment on above: Performed By: #### H EMDF, APTT, HA1C2 ####The performing lab is in the report. Granulocytes/100 WBC (Bld) 67.4 % Normal 40.0-80.0 [facility] Comment on above: Performed By: #### H EMDF, APTT, HA1C2 ####The performing lab is in the report. Hematocrit Auto Volume Fraction (Bld) 29.9 % Low 40.0-52.0 [facility] Comment on above: Performed By: #### H EMDF, APTT, HA1C2 ####The performing lab is in the report. Hemoglobin mass conc (Bld) 9.8 g/dL Low 13.0-18.0 [facility] Comment on above: Performed By: #### H EMDF, APTT, HA1C2 ####The performing lab is in the report. Lymphocytes Auto #/vol (Bld) 0.8 10*3/uL Low 1.0-4.3 [facility] Comment on above: Performed By: #### H EMDF, APTT, HA1C2 ####The performing lab is in the report. Lymphocytes/100 WBC Auto (Bld) 17.4 % Low 20.0-40.0 [facility] Comment on above: Performed By: #### H EMDF, APTT, HA1C2 ####The performing lab is in the report. MCH Auto Entitic mass (RBC) 27.6 pg Normal 26.0-34.0 [facility] Comment on above: Performed By: #### H EMDF, APTT, HA1C2 ####The performing lab is in the report. MCHC Auto mass conc (RBC) 32.8 % Normal 32.0-36.0 [facility] Comment on above: Performed By: #### H EMDF, APTT, HA1C2 ####The performing lab is in the report. MCV Auto Entitic volume (RBC) 84.2 fL Normal 80.0-98.0 [facility] Comment on above: Performed By: #### H EMDF, APTT, HA1C2 ####The performing lab is in the report. Monocytes Auto #/vol (Bld) 0.6 10*3/uL Normal 0.0-0.8 [facility] Comment on above: Performed By: #### H EMDF, APTT, HA1C2 ####The performing lab is in the report. Monocytes/100 WBC Auto (Bld) 12.3 % High 2.0-10.0 [facility] Comment on above: Performed By: #### H EMDF, APTT, HA1C2 ####The performing lab is in the report. Platelet mean volume Auto Entitic volume (Bld) 7.9 fL Normal 7.4-10.4 [facility] Comment on above: Performed By: #### H EMDF, APTT, HA1C2 ####The performing lab is in the report. Platelets Auto #/vol (Bld) 367 10*3/uL Normal 140-440 [facility] Comment on above: Performed By: #### H EMDF, APTT, HA1C2 ####The performing lab is in the report. RBC Auto #/vol (Bld) 3.55 10*6/uL Low 4.40-5.90 [facility] Comment on above: Performed By: #### H EMDF, APTT, HA1C2 ####The performing lab is in the report. WBC Auto #/vol (Bld) 4.7 10*3/uL Normal 3.6-10.7 [facility] Comment on above: Performed By: #### H EMDF, APTT, HA1C2 ####The performing lab is in the report. Glucose,Bedsideon 10-18-2017 Glucose mass conc 140 mg/dL High 70-100 [facility] Comment on above: Result Comment: Test performed by glucose meter. Results may be 10%-15% lowerthan serum/plasma values. (CLIA ID [id number]) Performed By: #### H EMDF, APTT, HA1C2 ####The performing lab is in the report. Glucose mass conc 133 mg/dL High 70-100 [facility] Comment on above: Result Comment: Conf irmation Drawn;Caregiver Notified;Test performed by glucose meter. Results may be 10%-15% lowerthan serum/plasma values. (CLIA ID [id number]) Performed By: #### H EMDF, APTT, HA1C2 ####The performing lab is in the report. Glucose mass conc 136 mg/dL High 70-100 [facility] Comment on above: Result Comment: Test performed by glucose meter. Results may be 10%-15% lowerthan serum/plasma values. (CLIA ID [id number]) Performed By: #### H EMDF, APTT, HA1C2 ####The performing lab is in the report. Glucose mass conc 139 mg/dL High 70-100 [facility] Comment on above: Result Comment: Test performed by glucose meter. Results may be 10%-15% lowerthan serum/plasma values. (CLIA ID [id number]) Performed By: #### H EMDF, APTT, HA1C2 ####The performing lab is in the report. Glucose mass conc 136 mg/dL High 70-100 [facility] Comment on above: Result Comment: Test performed by glucose meter. Results may be 10%-15% lowerthan serum/plasma values. (CLIA ID [id number]) Performed By: #### H EMDF, APTT, HA1C2 ####The performing lab is in the report. Glucose mass conc 116 mg/dL High 70-100 [facility] Comment on above: Result Comment: Test performed by glucose meter. Results may be 10%-15% lowerthan serum/plasma values. (CLIA ID [id number]) Performed By: #### H EMDF, APTT, HA1C2 ####The performing lab is in the report. Basic Metabolic Panelon 07-0 Anion gap 3 molar conc 7 Normal [facility] Comment on above: Performed By: #### H EMDF, APTT, HA1C2 ####The performing lab is in the report. Calcium mass conc 9.2 mg/dL Normal 8.4-10.4 [facility] Comment on above: Performed By: #### H EMDF, APTT, HA1C2 ####The performing lab is in the report. CO2 molar conc 28 mmol/L Normal 22-30 [facility] Comment on above: Performed By: #### H EMDF, APTT, HA1C2 ####The performing lab is in the report. Glucose mass conc 182 mg/dL High 70-100 [facility] Comment on above: Performed By: #### H EMDF, APTT, HA1C2 ####The performing lab is in the report. Urea nitrogen mass conc 16 mg/dL Normal 7-20 [facility] Comment on above: Performed By: #### H EMDF, APTT, HA1C2 ####The performing lab is in the report. Creatinine mass conc 0.77 mg/dL Normal 0.52-1.25 [facility] Comment on above: Performed By: #### H EMDF, APTT, HA1C2 ####The performing lab is in the report. GFR/1.73 sq M predicted among blacks MDRD vol rate/area (S/P/Bld) mL/min/{1.73_m2} Normal >60 [facility] Comment on above: Performed By: #### H EMDF, APTT, HA1C2 ####The performing lab is in the report. GFR/1.73 sq M predicted among non-blacks MDRD vol rate/area (S/P/Bld) mL/min/{1.73_m2} Normal >60 [facility] Comment on above: Result Comment: Sour ce- MDRD equation with creatinine calibration to IDMS(NKDEP) eGFR not recommended for drug dose adjustment Performed By: #### H EMDF, APTT, HA1C2 ####The performing lab is in the report. Potassium molar conc 4.9 mmol/L Normal 3.5-5.1 [facility] Comment on above: Performed By: #### H EMDF, APTT, HA1C2 ####The performing lab is in the report. Sodium molar conc 137 mmol/L Normal 137-145 [facility] Comment on above: Performed By: #### H EMDF, APTT, HA1C2 ####The performing lab is in the report. Chloride molar conc 102 mmol/L Normal 98-107 [facility] Comment on above: Performed By: #### H EMDF, APTT, HA1C2 ####The performing lab is in the report. Glucose,Bedsideon 10-17-2017 Glucose mass conc 117 mg/dL High 70-100 [facility] Comment on above: Result Comment: Test performed by glucose meter. Results may be 10%-15% lowerthan serum/plasma values. (CLIA ID [id number]) Performed By: #### H EMDF, APTT, HA1C2 ####The performing lab is in the report. Glucose mass conc 170 mg/dL High 70-100 [facility] Comment on above: Result Comment: Test performed by glucose meter. Results may be 10%-15% lowerthan serum/plasma values. (CLIA ID [id number]) Performed By: #### H EMDF, APTT, HA1C2 ####The performing lab is in the report. Glucose mass conc 180 mg/dL High 70-100 [facility] Comment on above: Result Comment: Test performed by glucose meter. Results may be 10%-15% lowerthan serum/plasma values. (CLIA ID [id number]) Performed By: #### H EMDF, APTT, HA1C2 ####The performing lab is in the report. Hemogramon 10-17-2017 Erythrocyte distribution width Auto Ratio (RBC) 15.5 % High 11.5-14.5 [facility] Comment on above: Performed By: #### H EMDF, APTT, HA1C2 ####The performing lab is in the report. Hematocrit Auto Volume Fraction (Bld) 29.0 % Low 40.0-52.0 [facility] Comment on above: Performed By: #### H EMDF, APTT, HA1C2 ####The performing lab is in the report. Hemoglobin mass conc (Bld) 9.3 g/dL Low 13.0-18.0 [facility] Comment on above: Performed By: #### H EMDF, APTT, HA1C2 ####The performing lab is in the report. MCH Auto Entitic mass (RBC) 27.2 pg Normal 26.0-34.0 [facility] Comment on above: Performed By: #### H EMDF, APTT, HA1C2 ####The performing lab is in the report. MCHC Auto mass conc (RBC) 31.9 % Low 32.0-36.0 [facility] Comment on above: Performed By: #### H EMDF, APTT, HA1C2 ####The performing lab is in the report. MCV Auto Entitic volume (RBC) 85.2 fL Normal 80.0-98.0 [facility] Comment on above: Performed By: #### H EMDF, APTT, HA1C2 ####The performing lab is in the report. Platelet mean volume Auto Entitic volume (Bld) 8.5 fL Normal 7.4-10.4 [facility] Comment on above: Performed By: #### H EMDF, APTT, HA1C2 ####The performing lab is in the report. Platelets Auto #/vol (Bld) 364 10*3/uL Normal 140-440 [facility] Comment on above: Performed By: #### H EMDF, APTT, HA1C2 ####The performing lab is in the report. RBC Auto #/vol (Bld) 3.40 10*6/uL Low 4.40-5.90 [facility] Comment on above: Performed By: #### H EMDF, APTT, HA1C2 ####The performing lab is in the report. WBC Auto #/vol (Bld) 4.3 10*3/uL Normal 3.6-10.7 [facility] Comment on above: Performed By: #### H EMDF, APTT, HA1C2 ####The performing lab is in the report. STAIN ACID-FASTon 10-17-2017 STAIN ACID-FAST STAIN ACID-FAST --> Status: F No acid-fast bacilli seen in smear. - Method: Fluorescent Stain - Method: Fluorescent Stain Normal [facility] Comment on above: Order Comment: or co llected Performed By: #### H EMDF, APTT, HA1C2 ####The performing lab is in the report. STAIN FUNGUSon 10-17-2017 STAIN FUNGUS STAIN FUNGUS --> Status: F No fungal elements seen. - Method: Direct Exam by Calcofluor Stain - Method: Direct Exam by Calcofluor Stain Normal [facility] Comment on above: Order Comment: or co llected Performed By: #### H EMDF, APTT, HA1C2 ####The performing lab is in the report. Glucose,Bedsideon 10-16-2017 Glucose mass conc 260 mg/dL High 70-100 [facility] Comment on above: Result Comment: Test performed by glucose meter. Results may be 10%-15% lowerthan serum/plasma values. (CLIA ID [id number]) Performed By: #### H EMDF, APTT, HA1C2 ####The performing lab is in the report. Glucose mass conc 157 mg/dL High 70-100 [facility] Comment on above: Result Comment: Test performed by glucose meter. Results may be 10%-15% lowerthan serum/plasma values. (CLIA ID [id number]) Performed By: #### H EMDF, MG3, BMP3 ####The performing lab is in the report. Glucose mass conc 127 mg/dL High 70-100 [facility] Comment on above: Result Comment: Test performed by glucose meter. Results may be 10%-15% lowerthan serum/plasma values. (CLIA ID [id number]) Performed By: #### H EMDF, MG3, BMP3 ####The performing lab is in the report. Glucose mass conc 149 mg/dL High 70-100 [facility] Comment on above: Result Comment: Test performed by glucose meter. Results may be 10%-15% lowerthan serum/plasma values. (CLIA ID [id number]) Performed By: #### H EMDF, MG3, BMP3 ####The performing lab is in the report. Surgical Pathologyon 018 Surgical Pathology [id number] [facility] PATHOLOGY AND LABORATORY MEDICINE [address] [place] [id number] FINAL SURGICAL PATHOLOGY REPORT NAME: JAMES REYES .O.B.: 1955 62 Y Ap HERNANDEZ NO.: [id number]: [id number] A PROCEDURE 10/16/2017 DATE:SURGEON: STACEY [...] submitted in a single cassette.(bits ss, 1) [id number]: The following statement applies to allimmunohistochemistry , in situ hybridization, molecular studies, andimmunofluorescence testing.The use of one or more reagents in the above tests is regulated as ananalyte specific reagent (ASR). These tests were developed and theirperformance characteristics determined by [facility]. They have not been cleared by the [...] false negativity on decalcified specimens.Professional Performing Location: [address] [address]. DEPARTMENT OF PATHOLOGY AND LABORATORY MEDICINE [place], [place] [address] Normal [facility] Basic Metabolic Panelon 05-0 Calcium mass conc 9.1 mg/dL Normal 8.4-10.2 [facility] Comment on above: Performed By: #### H EMDF, MG3, BMP3 ####The performing lab is in the report. Anion gap 3 molar conc 7 mmol/L Normal [facility] Comment on above: Performed By: #### H EMDF, MG3, BMP3 ####The performing lab is in the report. CO2 molar conc 32 mmol/L High 22-30 [facility] Comment on above: Performed By: #### H EMDF, MG3, BMP3 ####The performing lab is in the report. Creatinine mass conc 1.11 mg/dL Normal 0.52-1.25 [facility] Comment on above: Performed By: #### H EMDF, MG3, BMP3 ####The performing lab is in the report. GFR/1.73 sq M predicted among blacks MDRD vol rate/area (S/P/Bld) mL/min/{1.73_m2} Normal >60 [facility] Comment on above: Performed By: #### H EMDF, MG3, BMP3 ####The performing lab is in the report. GFR/1.73 sq M predicted among non-blacks MDRD vol rate/area (S/P/Bld) mL/min/{1.73_m2} Normal >60 [facility] Comment on above: Result Comment: Sour ce- MDRD equation with creatinine calibration to IDMS(NKDEP)eGFR not recommended for drug dose adjustment Performed By: #### H EMDF, MG3, BMP3 ####The performing lab is in the report. Glucose mass conc 47 mg/dL Low 70-100 [facility] Comment on above: Performed By: #### H EMDF, MG3, BMP3 ####The performing lab is in the report. Urea nitrogen mass conc 16 mg/dL Normal 7-20 [facility] Comment on above: Performed By: #### H EMDF, MG3, BMP3 ####The performing lab is in the report. Chloride molar conc 99 mmol/L Normal 98-107 [facility] Comment on above: Performed By: #### H EMDF, MG3, BMP3 ####The performing lab is in the report. Potassium molar conc 3.4 mmol/L Low 3.5-5.1 [facility] Comment on above: Performed By: #### H EMDF, MG3, BMP3 ####The performing lab is in the report. Sodium molar conc 137 mmol/L Normal 137-145 [facility] Comment on above: Performed By: #### H EMDF, MG3, BMP3 ####The performing lab is in the report. CR Chest Portableon 08-17-19 18 CR Chest Portable Patient Name: JAMES REYES Diagnostic Radiology Exam Date/Time 08/16/2017 05:45:45 EDT Exam CR Chest Portable Ordering Physician STACEY CLEMONS Accession Number [id number] CPT4 Codes 61098 () Reason For Exam Post op open heart surgery Report CLINICAL INFORMATION: Status post open heart surgery. CHEST X-RAY, PORTABLE, 0531 hours: An AP portable view is compared to the prior examination of the previous day. The examination is underpenetrated. There are median sternotomy wires from prior thoracic surgery. A right internal jugular Mills-Ivelisse introducer sheath is unchanged in position. The [...] Time: 08/16/2017 7:48 Normal [facility] Glucose,Bedsideon 08-16-2017 Glucose mass conc 201 mg/dL High 70-100 [facility] Comment on above: Result Comment: Test performed by glucose meter. Results may be 10%-15% lowerthan serum/plasma values. (CLIA ID [id number]) Performed By: #### B GLU ####The performing lab is in the report. Hemogramon 08-16-2017 Erythrocyte distribution width Auto Ratio (RBC) 14.5 % Normal 11.5-14.5 [facility] Comment on above: Performed By: #### H EMDF, MG3, BMP3 ####The performing lab is in the report. Hematocrit Auto Volume Fraction (Bld) 26.2 % Low 40.0-52.0 [facility] Comment on above: Performed By: #### H EMDF, MG3, BMP3 ####The performing lab is in the report. Hemoglobin mass conc (Bld) 8.6 g/dL Low 13.0-18.0 [facility] Comment on above: Performed By: #### H EMDF, MG3, BMP3 ####The performing lab is in the report. MCH Auto Entitic mass (RBC) 30.6 pg Normal 26.0-34.0 [facility] Comment on above: Performed By: #### H EMDF, MG3, BMP3 ####The performing lab is in the report. MCHC Auto mass conc (RBC) 32.7 % Normal 32.0-36.0 [facility] Comment on above: Performed By: #### Alfonso EMDF, MG3, BMP3 ####The performing lab is in the report. MCV Auto Entitic volume (RBC) 93.6 fL Normal 80.0-98.0 [facility] Comment on above: Performed By: #### H EMDF, MG3, BMP3 ####The performing lab is in the report. Platelet mean volume Auto Entitic volume (Bld) 8.5 fL Normal 7.4-10.4 [facility] Comment on above: Performed By: #### H EMDF, MG3, BMP3 ####The performing lab is in the report. Platelets Auto #/vol (Bld) 312 10*3/uL Normal 140-440 [facility] Comment on above: Performed By: #### H EMDF, MG3, BMP3 ####The performing lab is in the report. RBC Auto #/vol (Bld) 2.81 10*6/uL Low 4.40-5.90 [facility] Comment on above: Performed By: #### H EMDF, MG3, BMP3 ####The performing lab is in the report. WBC Auto #/vol (Bld) 4.8 10*3/uL Normal 3.6-10.7 [facility] Comment on above: Performed By: #### Alfonso EMDF, MG3, BMP3 ####The performing lab is in the report. Magnesiumon 08-16-2017 Magnesium mass conc 1.9 mg/dL Normal 1.6-2.3 [facility] Comment on above: Performed By: #### Alfonso EMDF, MG3, BMP3 ####The performing lab is in the report. Basic Metabolic Panelon Calcium mass conc 8.4 mg/dL Normal 8.4-10.2 [facility] Comment on above: Performed By: #### H EMDF, MG3, BMP3 ####The performing lab is in the report. Glucose mass conc 106 mg/dL High 70-100 [facility] Comment on above: Performed By: #### Alfonso EMDF, MG3, BMP3 ####The performing lab is in the report. Anion gap 3 molar conc 6 mmol/L Normal [facility] Comment on above: Performed By: #### H EMDF, MG3, BMP3 ####The performing lab is in the report. CO2 molar conc 27 mmol/L Normal 22-30 [facility] Comment on above: Performed By: #### H EMDF, MG3, BMP3 ####The performing lab is in the report. Creatinine mass conc 1.04 mg/dL Normal 0.52-1.25 [facility] Comment on above: Performed By: #### H EMDF, MG3, BMP3 ####The performing lab is in the report. GFR/1.73 sq M predicted among blacks MDRD vol rate/area (S/P/Bld) mL/min/{1.73_m2} Normal >60 [facility] Comment on above: Performed By: #### H EMDF, MG3, BMP3 ####The performing lab is in the report. GFR/1.73 sq M predicted among non-blacks MDRD vol rate/area (S/P/Bld) mL/min/{1.73_m2} Normal >60 [facility] Comment on above: Result Comment: Sour ce- MDRD equation with creatinine calibration to IDMS(NKDEP)eGFR not recommended for drug dose adjustment Performed By: #### H EMDF, MG3, BMP3 ####The performing lab is in the report. Urea nitrogen mass conc 19 mg/dL Normal 7-20 [facility] Comment on above: Performed By: #### H EMDF, MG3, BMP3 ####The performing lab is in the report. Chloride molar conc 102 mmol/L Normal 98-107 [facility] Comment on above: Performed By: #### H EMDF, MG3, BMP3 ####The performing lab is in the report. Potassium molar conc 4.4 mmol/L Normal 3.5-5.1 [facility] Comment on above: Performed By: #### H EMDF, MG3, BMP3 ####The performing lab is in the report. Sodium molar conc 135 mmol/L Low 137-145 [facility] Comment on above: Performed By: #### H EMDF, MG3, BMP3 ####The performing lab is in the report. CR Chest Portableon 08-16-19 18 CR Chest Portable Patient Name: JAMES REYES Diagnostic Radiology Exam Date/Time 08/15/2017 05:46:21 EDT Exam CR Chest Portable Ordering Physician STACEY CLEMONS Accession Number [id number] CPT4 Codes 51358 () Reason For Exam Post op open [...] Time: 08/15/2017 7:17 Normal [facility] Hemogramon 08-15-2017 Erythrocyte distribution width Auto Ratio (RBC) 14.6 % High 11.5-14.5 [facility] Comment on above: Performed By: #### H EMDF, MG3, BMP3 ####The performing lab is in the report. Hematocrit Auto Volume Fraction (Bld) 24.1 % Low 40.0-52.0 [facility] Comment on above: Performed By: #### H EMDF, MG3, BMP3 ####The performing lab is in the report. Hemoglobin mass conc (Bld) 7.8 g/dL Low 13.0-18.0 [facility] Comment on above: Performed By: #### H EMDF, MG3, BMP3 ####The performing lab is in the report. MCH Auto Entitic mass (RBC) 30.8 pg Normal 26.0-34.0 [facility] Comment on above: Performed By: #### H EMDF, MG3, BMP3 ####The performing lab is in the report. MCHC Auto mass conc (RBC) 32.3 % Normal 32.0-36.0 [facility] Comment on above: Performed By: #### H EMDF, MG3, BMP3 ####The performing lab is in the report. MCV Auto Entitic volume (RBC) 95.4 fL Normal 80.0-98.0 [facility] Comment on above: Performed By: #### H EMDF, MG3, BMP3 ####The performing lab is in the report. Platelet mean volume Auto Entitic volume (Bld) 9.1 fL Normal 7.4-10.4 [facility] Comment on above: Performed By: #### H EMDF, MG3, BMP3 ####The performing lab is in the report. Platelets Auto #/vol (Bld) 208 10*3/uL Normal 140-440 [facility] Comment on above: Performed By: #### H EMDF, MG3, BMP3 ####The performing lab is in the report. RBC Auto #/vol (Bld) 2.52 10*6/uL Low 4.40-5.90 [facility] Comment on above: Performed By: #### H EMDF, MG3, BMP3 ####The performing lab is in the report. WBC Auto #/vol (Bld) 5.0 10*3/uL Normal 3.6-10.7 [facility] Comment on above: Performed By: #### H EMDF, MG3, BMP3 ####The performing lab is in the report. Magnesiumon 08-15-2017 Magnesium mass conc 2.0 mg/dL Normal 1.6-2.3 [facility] Comment on above: Performed By: #### H EMDF, MG3, BMP3 ####The performing lab is in the report. Basic Metabolic Panelon 07-18 Anion gap 3 molar conc 7 mmol/L Normal [facility] Comment on above: Performed By: #### H EMDF, MG3, BMP3 ####The performing lab is in the report. Calcium mass conc 8.6 mg/dL Normal 8.4-10.2 [facility] Comment on above: Performed By: #### H EMDF, MG3, BMP3 ####The performing lab is in the report. CO2 molar conc 25 mmol/L Normal 22-30 [facility] Comment on above: Performed By: #### H EMDF, MG3, BMP3 ####The performing lab is in the report. Creatinine mass conc 1.01 mg/dL Normal 0.52-1.25 [facility] Comment on above: Performed By: #### H EMDF, MG3, BMP3 ####The performing lab is in the report. GFR/1.73 sq M predicted among blacks MDRD vol rate/area (S/P/Bld) mL/min/{1.73_m2} Normal >60 [facility] Comment on above: Performed By: #### H EMDF, MG3, BMP3 ####The performing lab is in the report. GFR/1.73 sq M predicted among non-blacks MDRD vol rate/area (S/P/Bld) mL/min/{1.73_m2} Normal >60 [facility] Comment on above: Result Comment: Sour ce- MDRD equation with creatinine calibration to IDMS(NKDEP)eGFR not recommended for drug dose adjustment Performed By: #### H EMDF, MG3, BMP3 ####The performing lab is in the report. Glucose mass conc 119 mg/dL High 70-100 [facility] Comment on above: Performed By: #### H EMDF, MG3, BMP3 ####The performing lab is in the report. Urea nitrogen mass conc 19 mg/dL Normal 7-20 [facility] Comment on above: Performed By: #### H EMDF, MG3, BMP3 ####The performing lab is in the report. Chloride molar conc 106 mmol/L Normal 98-107 [facility] Comment on above: Performed By: #### H EMDF, MG3, BMP3 ####The performing lab is in the report. Potassium molar conc 4.6 mmol/L Normal 3.5-5.1 [facility] Comment on above: Performed By: #### H EMDF, MG3, BMP3 ####The performing lab is in the report. Sodium molar conc 138 mmol/L Normal 137-145 [facility] Comment on above: Performed By: #### H EMDF, MG3, BMP3 ####The performing lab is in the report. CR Chest Portableon 08-15-19 18 CR Chest Portable Patient Name: JAMES REYES Diagnostic Radiology Exam Date/Time 08/14/2017 06:57:00 EDT Exam CR Chest Portable Ordering Physician STACEY CLEMONS Accession Number [id number] CPT4 Codes 40108 () Reason For Exam Post op open [...] Time: 08/14/2017 5:59 Normal [facility] Hemogramon 08-14-2017 Erythrocyte distribution width Auto Ratio (RBC) 14.9 % High 11.5-14.5 [facility] Comment on above: Performed By: #### H EMDF, MG3, BMP3 ####The performing lab is in the report. Hematocrit Auto Volume Fraction (Bld) 25.3 % Low 40.0-52.0 [facility] Comment on above: Performed By: #### H EMDF, MG3, BMP3 ####The performing lab is in the report. Hemoglobin mass conc (Bld) 8.4 g/dL Low 13.0-18.0 [facility] Comment on above: Performed By: #### H EMDF, MG3, BMP3 ####The performing lab is in the report. MCH Auto Entitic mass (RBC) 31.2 pg Normal 26.0-34.0 [facility] Comment on above: Performed By: #### H EMDF, MG3, BMP3 ####The performing lab is in the report. MCHC Auto mass conc (RBC) 33.0 % Normal 32.0-36.0 [facility] Comment on above: Performed By: #### H EMDF, MG3, BMP3 ####The performing lab is in the report. MCV Auto Entitic volume (RBC) 94.5 fL Normal 80.0-98.0 [facility] Comment on above: Performed By: #### H EMDF, MG3, BMP3 ####The performing lab is in the report. Platelet mean volume Auto Entitic volume (Bld) 9.0 fL Normal 7.4-10.4 [facility] Comment on above: Performed By: #### H EMDF, MG3, BMP3 ####The performing lab is in the report. Platelets Auto #/vol (Bld) 216 10*3/uL Normal 140-440 [facility] Comment on above: Performed By: #### H EMDF, MG3, BMP3 ####The performing lab is in the report. RBC Auto #/vol (Bld) 2.68 10*6/uL Low 4.40-5.90 [facility] Comment on above: Performed By: #### H EMDF, MG3, BMP3 ####The performing lab is in the report. WBC Auto #/vol (Bld) 4.2 10*3/uL Normal 3.6-10.7 [facility] Comment on above: Performed By: #### H EMDF, MG3, BMP3 ####The performing lab is in the report. Magnesiumon 08-14-2017 Magnesium mass conc 2.4 mg/dL High 1.6-2.3 [facility] Comment on above: Performed By: #### H EMDF, MG3, BMP3 ####The performing lab is in the report. Basic Metabolic Panelon 07-17 Calcium mass conc 8.2 mg/dL Low 8.4-10.2 [facility] Comment on above: Performed By: #### H EMDF, MG3, BMP3 ####The performing lab is in the report. Glucose mass conc 163 mg/dL High 70-100 [facility] Comment on above: Performed By: #### H EMDF, MG3, BMP3 ####The performing lab is in the report. Urea nitrogen mass conc 23 mg/dL High 7-20 [facility] Comment on above: Performed By: #### H EMDF, MG3, BMP3 ####The performing lab is in the report. Anion gap 3 molar conc 7 mmol/L Normal [facility] Comment on above: Performed By: #### H EMDF, MG3, BMP3 ####The performing lab is in the report. CO2 molar conc 24 mmol/L Normal 22-30 [facility] Comment on above: Performed By: #### H EMDF, MG3, BMP3 ####The performing lab is in the report. Creatinine mass conc 1.21 mg/dL Normal 0.52-1.25 [facility] Comment on above: Performed By: #### H EMDF, MG3, BMP3 ####The performing lab is in the report. GFR/1.73 sq M predicted among blacks MDRD vol rate/area (S/P/Bld) mL/min/{1.73_m2} Normal >60 [facility] Comment on above: Performed By: #### H EMDF, MG3, BMP3 ####The performing lab is in the report. GFR/1.73 sq M predicted among non-blacks MDRD vol rate/area (S/P/Bld) mL/min/{1.73_m2} Normal >60 [facility] Comment on above: Result Comment: Sour ce- MDRD equation with creatinine calibration to IDMS(NKDEP)eGFR not recommended for drug dose adjustment Performed By: #### H EMDF, MG3, BMP3 ####The performing lab is in the report. Potassium molar conc 4.6 mmol/L Normal 3.5-5.1 [facility] Comment on above: Performed By: #### H EMDF, MG3, BMP3 ####The performing lab is in the report. Chloride molar conc 102 mmol/L Normal 98-107 [facility] Comment on above: Performed By: #### H EMDF, MG3, BMP3 ####The performing lab is in the report. Sodium molar conc 134 mmol/L Low 137-145 [facility] Comment on above: Performed By: #### H EMDF, MG3, BMP3 ####The performing lab is in the report. CR Abdomen APon 08-13-2017 CR Abdomen AP Patient Name: JAMES REYES Diagnostic Radiology Exam Date/Time 08/13/2017 12:57:54 EDT Exam CR Abdomen AP Ordering Physician JARET BEEBE Accession Number [id number] CPT4 Codes 00949 () Reason For Exam right abdominal pain [...] Time: 08/13/2017 4:28 Normal [facility] CR Chest Portableon 08-14-19 18 CR Chest Portable Patient Name: JAMES REYES Diagnostic Radiology Exam Date/Time 08/13/2017 06:36:36 EDT Exam CR Chest Portable Ordering Physician STACEY CLEMONS Accession Number [id number] CPT4 Codes 90132 () Reason For Exam Post op open [...] Time: 08/13/2017 8:05 Normal [facility] Hemogramon 08-13-2017 Erythrocyte distribution width Auto Ratio (RBC) 14.9 % High 11.5-14.5 [facility] Comment on above: Performed By: #### H EMDF, MG3, BMP3 ####The performing lab is in the report. Hematocrit Auto Volume Fraction (Bld) 27.3 % Low 40.0-52.0 [facility] Comment on above: Performed By: #### H EMDF, MG3, BMP3 ####The performing lab is in the report. Hemoglobin mass conc (Bld) 8.9 g/dL Low 13.0-18.0 [facility] Comment on above: Performed By: #### H EMDF, MG3, BMP3 ####The performing lab is in the report. MCH Auto Entitic mass (RBC) 30.9 pg Normal 26.0-34.0 [facility] Comment on above: Performed By: #### H EMDF, MG3, BMP3 ####The performing lab is in the report. MCHC Auto mass conc (RBC) 32.5 % Normal 32.0-36.0 [facility] Comment on above: Performed By: #### H EMDF, MG3, BMP3 ####The performing lab is in the report. MCV Auto Entitic volume (RBC) 95.2 fL Normal 80.0-98.0 [facility] Comment on above: Performed By: #### H EMDF, MG3, BMP3 ####The performing lab is in the report. Platelet mean volume Auto Entitic volume (Bld) 8.9 fL Normal 7.4-10.4 [facility] Comment on above: Performed By: #### H EMDF, MG3, BMP3 ####The performing lab is in the report. Platelets Auto #/vol (Bld) 201 10*3/uL Normal 140-440 [facility] Comment on above: Performed By: #### H EMDF, MG3, BMP3 ####The performing lab is in the report. RBC Auto #/vol (Bld) 2.87 10*6/uL Low 4.40-5.90 [facility] Comment on above: Performed By: #### H EMDF, MG3, BMP3 ####The performing lab is in the report. WBC Auto #/vol (Bld) 5.9 10*3/uL Normal 3.6-10.7 [facility] Comment on above: Performed By: #### H EMDF, MG3, BMP3 ####The performing lab is in the report. Magnesiumon 08-13-2017 Magnesium mass conc 2.5 mg/dL High 1.6-2.3 [facility] Comment on above: Performed By: #### H EMDF, MG3, BMP3 ####The performing lab is in the report. Basic Metabolic Panelon 07-17 Calcium mass conc 8.1 mg/dL Low 8.4-10.2 [facility] Comment on above: Performed By: #### H EMDF, MG3, BMP3 ####The performing lab is in the report. Anion gap 3 molar conc 6 mmol/L Normal [facility] Comment on above: Performed By: #### H EMDF, MG3, BMP3 ####The performing lab is in the report. CO2 molar conc 24 mmol/L Normal 22-30 [facility] Comment on above: Performed By: #### H EMDF, MG3, BMP3 ####The performing lab is in the report. Creatinine mass conc 1.26 mg/dL High 0.52-1.25 [facility] Comment on above: Performed By: #### H EMDF, MG3, BMP3 ####The performing lab is in the report. GFR/1.73 sq M predicted among blacks MDRD vol rate/area (S/P/Bld) mL/min/{1.73_m2} Normal >60 [facility] Comment on above: Performed By: #### H EMDF, MG3, BMP3 ####The performing lab is in the report. GFR/1.73 sq M predicted among non-blacks MDRD vol rate/area (S/P/Bld) 58.2 mL/min/{1.73_m2} Normal >60 [facility] Comment on above: Result Comment: Sour ce- MDRD equation with creatinine calibration to IDMS(NKDEP)eGFR not recommended for drug dose adjustment Performed By: #### H EMDF, MG3, BMP3 ####The performing lab is in the report. Glucose mass conc 139 mg/dL High 70-100 [facility] Comment on above: Performed By: #### H EMDF, MG3, BMP3 ####The performing lab is in the report. Urea nitrogen mass conc 20 mg/dL Normal 7-20 [facility] Comment on above: Performed By: #### H EMDF, MG3, BMP3 ####The performing lab is in the report. Chloride molar conc 105 mmol/L Normal 98-107 [facility] Comment on above: Performed By: #### H EMDF, MG3, BMP3 ####The performing lab is in the report. Potassium molar conc 4.2 mmol/L Normal 3.5-5.1 [facility] Comment on above: Performed By: #### H EMDF, MG3, BMP3 ####The performing lab is in the report. Sodium molar conc 135 mmol/L Low 137-145 [facility] Comment on above: Performed By: #### H EMDF, MG3, BMP3 ####The performing lab is in the report. CR Chest Portableon 08-13-19 18 CR Chest Portable Patient Name: JAMES REYES Diagnostic Radiology Exam Date/Time 08/12/2017 13:18:29 EDT Exam CR Chest Portable Ordering Physician STACEY CLEMONS Accession Number [id number] CPT4 Codes 73700 () Reason For Exam Post op open heart surgery Report Examination: Portable chest Indication: Post op open heart surgery Comparison: Previous day Findings: There has been removal of the Mills-Ivelisse catheter. Median sternotomy changes are present. There [...] Transcribed Date and Time: 08/12/2017 1:24 Normal [facility] Glucose,Bedsideon 08-12-2017 Glucose mass conc 128 mg/dL High 70-100 [facility] Comment on above: Result Comment: Test performed by glucose meter. Results may be 10%-15% lowerthan serum/plasma values. (CLIA ID [id number]) Performed By: #### H EMDF, MG3, BMP3 ####The performing lab is in the report. Glucose mass conc 144 mg/dL High 70-100 [facility] Comment on above: Result Comment: Test performed by glucose meter. Results may be 10%-15% lowerthan serum/plasma values. (CLIA ID [id number]) Performed By: #### H EMDF, MG3, BMP3 ####The performing lab is in the report. Hemogram w/ Autodiffon 08-12 Abs Baso Cnt 0.0 10*3/uL Normal 0.0-0.2 [facility] Comment on above: Performed By: #### H EMDF, MG3, BMP3 ####The performing lab is in the report. Abs Neutrophile Cnt 7.6 10*3/uL High 1.8-7.0 [facility] Comment on above: Performed By: #### H EMDF, MG3, BMP3 ####The performing lab is in the report. Basophils/100 WBC Auto (Bld) 0.3 % Normal 0.0-2.0 [facility] Comment on above: Performed By: #### H EMDF, MG3, BMP3 ####The performing lab is in the report. Eosinophils Auto #/vol (Bld) 0.3 10*3/uL Normal 0.0-0.5 [facility] Comment on above: Performed By: #### H EMDF, MG3, BMP3 ####The performing lab is in the report. Eosinophils/100 WBC Auto (Bld) 2.9 % Normal 1.0-6.0 [facility] Comment on above: Performed By: #### H EMDF, MG3, BMP3 ####The performing lab is in the report. Erythrocyte distribution width Auto Ratio (RBC) 15.3 % High 11.5-14.5 [facility] Comment on above: Performed By: #### H EMDF, MG3, BMP3 ####The performing lab is in the report. Granulocytes/100 WBC (Bld) 82.7 % High 40.0-80.0 [facility] Comment on above: Performed By: #### H EMDF, MG3, BMP3 ####The performing lab is in the report. Hematocrit Auto Volume Fraction (Bld) 28.5 % Low 40.0-52.0 [facility] Comment on above: Performed By: #### H EMDF, MG3, BMP3 ####The performing lab is in the report. Hemoglobin mass conc (Bld) 9.4 g/dL Low 13.0-18.0 [facility] Comment on above: Performed By: #### H EMDF, MG3, BMP3 ####The performing lab is in the report. Lymphocytes Auto #/vol (Bld) 0.5 10*3/uL Low 1.0-4.3 [facility] Comment on above: Performed By: #### H EMDF, MG3, BMP3 ####The performing lab is in the report. Lymphocytes/100 WBC Auto (Bld) 5.2 % Low 20.0-40.0 [facility] Comment on above: Performed By: #### H EMDF, MG3, BMP3 ####The performing lab is in the report. MCH Auto Entitic mass (RBC) 31.4 pg Normal 26.0-34.0 [facility] Comment on above: Performed By: #### H EMDF, MG3, BMP3 ####The performing lab is in the report. MCHC Auto mass conc (RBC) 33.1 % Normal 32.0-36.0 [facility] Comment on above: Performed By: #### H EMDF, MG3, BMP3 ####The performing lab is in the report. MCV Auto Entitic volume (RBC) 94.7 fL Normal 80.0-98.0 [facility] Comment on above: Performed By: #### H RAFAELF, MG3, BMP3 ####The performing lab is in the report. Monocytes Auto #/vol (Bld) 0.8 10*3/uL Normal 0.0-0.8 [facility] Comment on above: Performed By: #### H EMDF, MG3, BMP3 ####The performing lab is in the report. Monocytes/100 WBC Auto (Bld) 8.9 % Normal 2.0-10.0 [facility] Comment on above: Performed By: #### H EMDF, MG3, BMP3 ####The performing lab is in the report. Platelet mean volume Auto Entitic volume (Bld) 9.1 fL Normal 7.4-10.4 [facility] Comment on above: Performed By: #### H EMDF, MG3, BMP3 ####The performing lab is in the report. Platelets Auto #/vol (Bld) 214 10*3/uL Normal 140-440 [facility] Comment on above: Performed By: #### H EMDF, MG3, BMP3 ####The performing lab is in the report. RBC Auto #/vol (Bld) 3.01 10*6/uL Low 4.40-5.90 [facility] Comment on above: Performed By: #### H EMDF, MG3, BMP3 ####The performing lab is in the report. WBC Auto #/vol (Bld) 9.2 10*3/uL Normal 3.6-10.7 [facility] Comment on above: Performed By: #### H EMDF, MG3, BMP3 ####The performing lab is in the report. Leukodepleted Red Cellson Leukodepleted Red Cells Leukodepleted Re d Cells: [id number] released 08/12/17 05:29 PKHUnit Blood Type: AUnit Blood Rh: POSBlood Product Code: [id number] Number: [id number] Status: released Barcoded Unit Number: =[id number] d Product Code: = Normal [facility] Comment on above: Performed By: #### M G3, BMP3 ####The performing lab is in the report. Magnesiumon 08-12-2017 Magnesium mass conc 2.5 mg/dL High 1.6-2.3 [facility] Comment on above: Performed By: #### H EMDF, MG3, BMP3 ####The performing lab is in the report. Prothrombin Timeon 8 INR Coag RelTime (PPP) 1.1 {INR} Normal 0.9-1.1 [facility] Comment on above: Result Comment: Lux mmended [...] 11.7 s Normal 9.0-12.0 [facility] Comment on above: Result Comment: . Performed By: #### H EMDF, MG3, BMP3 ####The performing lab is in the report. Arterial Blood Gaseson 08-11 HCO3 molar conc (Bld) 24.6 mmol/L Normal 21.0-25.0 [facility] Comment on above: Performed By: #### A BG ####The performing lab is in the report. Hemoglobin mass conc (Bld) 11.1 g/dL Normal ScreenOnly [facility] Comment on above: Performed By: #### A BG ####The performing lab is in the report. Oxygen ppres (BldA) 103.3 mm[Hg] High 80.0-100.0 [facility] Comment on above: Performed By: #### A BG ####The performing lab is in the report. Oxygen saturation in Blood 97.5 % Normal 95.0-100.0 [facility] Comment on above: Performed By: #### A BG ####The performing lab is in the report. pCO2 47.1 mm[Hg] High 35.0-45.0 [facility] Comment on above: Performed By: #### A BG ####The performing lab is in the report. pH (Bld) 7.336 [pH] Low 7.350-7.450 [facility] Comment on above: Performed By: #### A BG ####The performing lab is in the report. Std Base Excess -1.4 mmol/L Normal -3.0-3.0 [facility] Comment on above: Performed By: #### A BG ####The performing lab is in the report. TCO2 26.1 mmol/L Normal 23.0-27.0 [facility] Comment on above: Performed By: #### A BG ####The performing lab is in the report. FIO2 No data Normal [facility] Comment on above: Performed By: #### A BG ####The performing lab is in the report. Basic Metabolic Panelon 2 Calcium mass conc 8.4 mg/dL Normal 8.4-10.2 [facility] Comment on above: Performed By: #### P T, HEMDF, MG3, BMP3 ####The performing lab is in the report. Anion gap 3 molar conc 8 mmol/L Normal [facility] Comment on above: Performed By: #### P T, HEMDF, MG3, BMP3 ####The performing lab is in the report. CO2 molar conc 26 mmol/L Normal 22-30 [facility] Comment on above: Performed By: #### P T, HEMDF, MG3, BMP3 ####The performing lab is in the report. Creatinine mass conc 0.89 mg/dL Normal 0.52-1.25 [facility] Comment on above: Performed By: #### P T, HEMDF, MG3, BMP3 ####The performing lab is in the report. GFR/1.73 sq M predicted among blacks MDRD vol rate/area (S/P/Bld) mL/min/{1.73_m2} Normal >60 [facility] Comment on above: Performed By: #### P T, HEMDF, MG3, BMP3 ####The performing lab is in the report. GFR/1.73 sq M predicted among non-blacks MDRD vol rate/area (S/P/Bld) mL/min/{1.73_m2} Normal >60 [facility] Comment on above: Result Comment: Sour ce- MDRD equation with creatinine calibration to IDMS(NKDEP)eGFR not recommended for drug dose adjustment Performed By: #### P T, HEMDF, MG3, BMP3 ####The performing lab is in the report. Glucose mass conc 80 mg/dL Normal 70-100 [facility] Comment on above: Performed By: #### P T, HEMDF, MG3, BMP3 ####The performing lab is in the report. Urea nitrogen mass conc 15 mg/dL Normal 7-20 [facility] Comment on above: Performed By: #### P T, HEMDF, MG3, BMP3 ####The performing lab is in the report. Chloride molar conc 111 mmol/L High 98-107 [facility] Comment on above: Performed By: #### P T, HEMDF, MG3, BMP3 ####The performing lab is in the report. Potassium molar conc 4.0 mmol/L Normal 3.5-5.1 [facility] Comment on above: Performed By: #### P T, HEMDF, MG3, BMP3 ####The performing lab is in the report. Sodium molar conc 144 mmol/L Normal 137-145 [facility] Comment on above: Performed By: #### P T, HEMDF, MG3, BMP3 ####The performing lab is in the report. CR Chest Portableon 08-12-19 18 CR Chest Portable Patient Name: JAMES REYES Diagnostic Radiology Exam Date/Time 08/11/2017 05:30:09 EDT Exam CR Chest Portable Ordering Physician STACEY CLEMONS Accession Number [id number] CPT4 Codes 84102 () Reason For Exam Post op open heart surgery Report Portable chest Clinical: Postop open-heart surgery COMPARISON: August 10, 2017 Heart size is stable. Median sternotomy changes. Mediastinal drainage catheter and left basilar chest tube remain in place. Endotracheal tube and feeding tube have been removed since the prior study. The right sided internal jugular distribution Mills-Ivelisse catheter remains, with the tip overlying the proximal right pulmonary artery distribution. Bibasilar atelectatic changes without sizable pleural effusion or pneumothorax. Osseous degenerative changes. Report Dictated on Final Dictated: 08/11/2017 7:55 am Dictating Physician: MAYO VELASQUEZ Signed Date and Time: 08/11/2017 7:56 am Signed by: MAYO VELASQUEZ Transcribed Date and Time: 08/11/2017 7:55 Normal [facility] Glucose,Bedsideon 08-11-2017 Glucose mass conc 134 mg/dL High 70-100 [facility] Comment on above: Result Comment: Test performed by glucose meter. Results may be 10%-15% lowerthan serum/plasma values. (CLIA ID [id number]) Performed By: #### B GLU ####The performing lab is in the report. Hemogram w/ Autodiffon 08-11 Abs Baso Cnt 0.0 10*3/uL Normal 0.0-0.2 [facility] Comment on above: Performed By: #### P T, HEMDF, MG3, BMP3 ####The performing lab is in the report. Abs Neutrophile Cnt 7.9 10*3/uL High 1.8-7.0 [facility] Comment on above: Performed By: #### P T, HEMDF, MG3, BMP3 ####The performing lab is in the report. Basophils/100 WBC Auto (Bld) 0.3 % Normal 0.0-2.0 [facility] Comment on above: Performed By: #### P T, HEMDF, MG3, BMP3 ####The performing lab is in the report. Eosinophils Auto #/vol (Bld) 0.0 10*3/uL Normal 0.0-0.5 [facility] Comment on above: Performed By: #### P T, HEMDF, MG3, BMP3 ####The performing lab is in the report. Eosinophils/100 WBC Auto (Bld) 0.1 % Low 1.0-6.0 [facility] Comment on above: Performed By: #### P T, HEMDF, MG3, BMP3 ####The performing lab is in the report. Erythrocyte distribution width Auto Ratio (RBC) 15.1 % High 11.5-14.5 [facility] Comment on above: Performed By: #### P T, HEMDF, MG3, BMP3 ####The performing lab is in the report. Granulocytes/100 WBC (Bld) 88.2 % High 40.0-80.0 [facility] Comment on above: Performed By: #### P T, HEMDF, MG3, BMP3 ####The performing lab is in the report. Hematocrit Auto Volume Fraction (Bld) 31.7 % Low 40.0-52.0 [facility] Comment on above: Performed By: #### P T, HEMDF, MG3, BMP3 ####The performing lab is in the report. Hemoglobin mass conc (Bld) 10.6 g/dL Low 13.0-18.0 [facility] Comment on above: Performed By: #### P T, HEMDF, MG3, BMP3 ####The performing lab is in the report. Lymphocytes Auto #/vol (Bld) 0.2 10*3/uL Low 1.0-4.3 [facility] Comment on above: Performed By: #### P T, HEMDF, MG3, BMP3 ####The performing lab is in the report. Lymphocytes/100 WBC Auto (Bld) 2.3 % Low 20.0-40.0 [facility] Comment on above: Performed By: #### P T, HEMDF, MG3, BMP3 ####The performing lab is in the report. MCH Auto Entitic mass (RBC) 31.5 pg Normal 26.0-34.0 [facility] Comment on above: Performed By: #### P T, HEMDF, MG3, BMP3 ####The performing lab is in the report. MCHC Auto mass conc (RBC) 33.4 % Normal 32.0-36.0 [facility] Comment on above: Performed By: #### P T, HEMDF, MG3, BMP3 ####The performing lab is in the report. MCV Auto Entitic volume (RBC) 94.2 fL Normal 80.0-98.0 [facility] Comment on above: Performed By: #### P T, HEMDF, MG3, BMP3 ####The performing lab is in the report. Monocytes Auto #/vol (Bld) 0.8 10*3/uL Normal 0.0-0.8 [facility] Comment on above: Performed By: #### P T, HEMDF, MG3, BMP3 ####The performing lab is in the report. Monocytes/100 WBC Auto (Bld) 9.1 % Normal 2.0-10.0 [facility] Comment on above: Performed By: #### P T, HEMDF, MG3, BMP3 ####The performing lab is in the report. Platelet mean volume Auto Entitic volume (Bld) 8.7 fL Normal 7.4-10.4 [facility] Comment on above: Performed By: #### P T, HEMDF, MG3, BMP3 ####The performing lab is in the report. Platelets Auto #/vol (Bld) 216 10*3/uL Normal 140-440 [facility] Comment on above: Performed By: #### P T, HEMDF, MG3, BMP3 ####The performing lab is in the report. RBC Auto #/vol (Bld) 3.37 10*6/uL Low 4.40-5.90 [facility] Comment on above: Performed By: #### P T, HEMDF, MG3, BMP3 ####The performing lab is in the report. WBC Auto #/vol (Bld) 8.9 10*3/uL Normal 3.6-10.7 [facility] Comment on above: Performed By: #### P T, HEMDF, MG3, BMP3 ####The performing lab is in the report. Magnesiumon 2018 Magnesium mass conc 3.0 mg/dL High 1.6-2.3 [facility] Comment on above: Performed By: #### P T, HEMDF, MG3, BMP3 ####The performing lab is in the report. Prothrombin Timeon 201 8 INR Coag RelTime (PPP) 1.0 {INR} Normal 0.9-1.1 [facility] Comment on above: Result Comment: Lux mmended [...] 10.4 s Normal 9.0-12.0 [facility] Comment on above: Result Comment: . Performed By: #### P T, HEMDF, MG3, BMP3 ####The performing lab is in the report. APTTon 08-10-2017 aPTT Coag time (Bld) 25.0 s Normal 20.0-30.5 [facility] Comment on above: Result Comment: NOTE : The therapeutic time for Heparin anticoagulation,based on Xa activity inhibition, is an APTT of 46-80seconds. Performed By: #### A PTT ####The performing lab is in the report. Arterial Blood Gaseson 08-10 HCO3 molar conc (Bld) 24.1 mmol/L Normal 21.0-25.0 [facility] Comment on above: Performed By: #### A BG ####The performing lab is in the report. Hemoglobin mass conc (Bld) 11.2 g/dL Normal ScreenOnly [facility] Comment on above: Performed By: #### A BG ####The performing lab is in the report. Oxygen ppres (BldA) 85.1 mm[Hg] Normal 80.0-100.0 [facility] Comment on above: Performed By: #### A BG ####The performing lab is in the report. Oxygen saturation in Blood 95.5 % Normal 95.0-100.0 [facility] Comment on above: Performed By: #### A BG ####The performing lab is in the report. pCO2 46.4 mm[Hg] High 35.0-45.0 [facility] Comment on above: Performed By: #### A BG ####The performing lab is in the report. pH (Bld) 7.333 [pH] Low 7.350-7.450 [facility] Comment on above: Performed By: #### A BG ####The performing lab is in the report. Std Base Excess -1.9 mmol/L Normal -3.0-3.0 [facility] Comment on above: Performed By: #### A BG ####The performing lab is in the report. FIO2 No data Normal [facility] Comment on above: Performed By: #### A BG ####The performing lab is in the report. HCO3 molar conc (Bld) 24.2 mmol/L Normal 21.0-25.0 [facility] Comment on above: Performed By: #### Ap G3, BMP3 ####The performing lab is in the report. Hemoglobin mass conc (Bld) 11.4 g/dL Normal ScreenOnly [facility] Comment on above: Performed By: #### M G3, BMP3 ####The performing lab is in the report. Oxygen ppres (BldA) 147.0 mm[Hg] High 80.0-100.0 [facility] Comment on above: Performed By: #### M G3, BMP3 ####The performing lab is in the report. Oxygen saturation in Blood 98.8 % Normal 95.0-100.0 [facility] Comment on above: Performed By: #### Ap G3, BMP3 ####The performing lab is in the report. pCO2 42.3 mm[Hg] Normal 35.0-45.0 [facility] Comment on above: Performed By: #### Ap G3, BMP3 ####The performing lab is in the report. pH (Bld) 7.376 [pH] Normal 7.350-7.450 [facility] Comment on above: Performed By: #### Ap G3, BMP3 ####The performing lab is in the report. Std Base Excess -1.0 mmol/L Normal -3.0-3.0 [facility] Comment on above: Performed By: #### M G3, BMP3 ####The performing lab is in the report. TCO2 25.5 mmol/L Normal 23.0-27.0 [facility] Comment on above: Performed By: #### A BG ####The performing lab is in the report. Performed By: #### Ap G3, BMP3 ####The performing lab is in the report. FIO2 No data Normal [facility] Comment on above: Performed By: #### M G3, BMP3 ####The performing lab is in the report. Basic Metabolic Panelon - Anion gap 3 molar conc 9 mmol/L Normal [facility] Comment on above: Performed By: #### I CA, HEMOG, PT, FIBGN, MG3, BMP3, PHOS3 ####The performing lab is in the report. Calcium mass conc 8.5 mg/dL Normal 8.4-10.2 [facility] Comment on above: Performed By: #### I CA, HEMOG, PT, FIBGN, MG3, BMP3, PHOS3 ####The performing lab is in the report. CO2 molar conc 25 mmol/L Normal 22-30 [facility] Comment on above: Performed By: #### I CA, HEMOG, PT, FIBGN, MG3, BMP3, PHOS3 ####The performing lab is in the report. Glucose mass conc 111 mg/dL High 70-100 [facility] Comment on above: Performed By: #### I CA, HEMOG, PT, FIBGN, MG3, BMP3, PHOS3 ####The performing lab is in the report. Urea nitrogen mass conc 17 mg/dL Normal 7-20 [facility] Comment on above: Performed By: #### I CA, HEMOG, PT, FIBGN, MG3, BMP3, PHOS3 ####The performing lab is in the report. Creatinine mass conc 0.93 mg/dL Normal 0.52-1.25 [facility] Comment on above: Performed By: #### I CA, HEMOG, PT, FIBGN, MG3, BMP3, PHOS3 ####The performing lab is in the report. GFR/1.73 sq M predicted among blacks MDRD vol rate/area (S/P/Bld) mL/min/{1.73_m2} Normal >60 [facility] Comment on above: Performed By: #### I CA, HEMOG, PT, FIBGN, MG3, BMP3, PHOS3 ####The performing lab is in the report. GFR/1.73 sq M predicted among non-blacks MDRD vol rate/area (S/P/Bld) mL/min/{1.73_m2} Normal >60 [facility] Comment on above: Result Comment: Sour ce- MDRD equation with creatinine calibration to IDMS(NKDEP)eGFR not recommended for drug dose adjustment Performed By: #### I CA, HEMOG, PT, FIBGN, MG3, BMP3, PHOS3 ####The performing lab is in the report. Potassium molar conc 4.2 mmol/L Normal 3.5-5.1 [facility] Comment on above: Performed By: #### I CA, HEMOG, PT, FIBGN, MG3, BMP3, PHOS3 ####The performing lab is in the report. Sodium molar conc 145 mmol/L Normal 137-145 [facility] Comment on above: Performed By: #### I CA, HEMOG, PT, FIBGN, MG3, BMP3, PHOS3 ####The performing lab is in the report. Chloride molar conc 111 mmol/L High 98-107 [facility] Comment on above: Performed By: #### I CA, HEMOG, PT, FIBGN, MG3, BMP3, PHOS3 ####The performing lab is in the report. Calcium mass conc 8.2 mg/dL Low 8.4-10.2 [facility] Comment on above: Performed By: #### M G3, BMP3 ####The performing lab is in the report. Anion gap 3 molar conc 5 mmol/L Normal [facility] Comment on above: Performed By: #### M G3, BMP3 ####The performing lab is in the report. CO2 molar conc 27 mmol/L Normal 22-30 [facility] Comment on above: Performed By: #### M G3, BMP3 ####The performing lab is in the report. Creatinine mass conc 0.93 mg/dL Normal 0.52-1.25 [facility] Comment on above: Performed By: #### M G3, BMP3 ####The performing lab is in the report. GFR/1.73 sq M predicted among blacks MDRD vol rate/area (S/P/Bld) mL/min/{1.73_m2} Normal >60 [facility] Comment on above: Performed By: #### M G3, BMP3 ####The performing lab is in the report. GFR/1.73 sq M predicted among non-blacks MDRD vol rate/area (S/P/Bld) mL/min/{1.73_m2} Normal >60 [facility] Comment on above: Result Comment: Sour ce- MDRD equation with creatinine calibration to IDMS(NKDEP)eGFR not recommended for drug dose adjustment Performed By: #### Ap G3, BMP3 ####The performing lab is in the report. Glucose mass conc 123 mg/dL High 70-100 [facility] Comment on above: Performed By: #### Ap G3, BMP3 ####The performing lab is in the report. Urea nitrogen mass conc 15 mg/dL Normal 7-20 [facility] Comment on above: Performed By: #### Ap G3, BMP3 ####The performing lab is in the report. Chloride molar conc 111 mmol/L High 98-107 [facility] Comment on above: Performed By: #### Ap G3, BMP3 ####The performing lab is in the report. Potassium molar conc 3.7 mmol/L Normal 3.5-5.1 [facility] Comment on above: Performed By: #### Ap G3, BMP3 ####The performing lab is in the report. Sodium molar conc 143 mmol/L Normal 137-145 [facility] Comment on above: Performed By: #### Ap G3, BMP3 ####The performing lab is in the report. Anion gap 3 molar conc 9 mmol/L Normal [facility] Comment on above: Performed By: #### Ap G3, BMP3 ####The performing lab is in the report. Calcium mass conc 9.3 mg/dL Normal 8.4-10.2 [facility] Comment on above: Performed By: #### Ap G3, BMP3 ####The performing lab is in the report. CO2 molar conc 27 mmol/L Normal 22-30 [facility] Comment on above: Performed By: #### Ap G3, BMP3 ####The performing lab is in the report. Glucose mass conc 161 mg/dL High 70-100 [facility] Comment on above: Performed By: #### Ap G3, BMP3 ####The performing lab is in the report. Urea nitrogen mass conc 18 mg/dL Normal 7-20 [facility] Comment on above: Performed By: #### M G3, BMP3 ####The performing lab is in the report. Creatinine mass conc 0.88 mg/dL Normal 0.52-1.25 [facility] Comment on above: Performed By: #### M G3, BMP3 ####The performing lab is in the report. GFR/1.73 sq M predicted among blacks MDRD vol rate/area (S/P/Bld) mL/min/{1.73_m2} Normal >60 [facility] Comment on above: Performed By: #### M G3, BMP3 ####The performing lab is in the report. GFR/1.73 sq M predicted among non-blacks MDRD vol rate/area (S/P/Bld) mL/min/{1.73_m2} Normal >60 [facility] Comment on above: Result Comment: Sour ce- MDRD equation with creatinine calibration to IDMS(NKDEP)eGFR not recommended for drug dose adjustment Performed By: #### M G3, BMP3 ####The performing lab is in the report. Potassium molar conc 4.2 mmol/L Normal 3.5-5.1 [facility] Comment on above: Performed By: #### M G3, BMP3 ####The performing lab is in the report. Sodium molar conc 143 mmol/L Normal 137-145 [facility] Comment on above: Performed By: #### M G3, BMP3 ####The performing lab is in the report. Chloride molar conc 107 mmol/L Normal 98-107 [facility] Comment on above: Performed By: #### M G3, BMP3 ####The performing lab is in the report. CR Chest Portableon 08-11-19 18 CR Chest Portable Patient Name: JAMES REYES Diagnostic Radiology Exam Date/Time 08/10/2017 14:26:03 EDT Exam CR Chest Portable Ordering Physician STACEY CLEMONS Accession Number [id number] CPT4 Codes 85287 () Reason For Exam Post op open heart surgery Report CLINICAL INFORMATION: Open heart surgery. Intubation. Portable view of the chest at 1345 hours is provided and compared to a previous study dated August 06, 2017. FINDINGS: An endotracheal tube is now seen with its tip approximately 5 cm above the greg. An enteric tube extends into the stomach. A Mills-Ivelisse catheter is in place via the right [...] Time: 08/10/2017 3:36 Normal [facility] CULTURE STAPH AUREUSon 08-10 CULTURE STAPH AUREUS CULTURE STAPH AUREU S --> Status: F No Staphylococcus aureus isolated. Normal [facility] Comment on above: Performed By: #### H EMDF, MG3, BMP3 ####The performing lab is in the report. Calcium,Ionizedon 08-10-2017 Ionized Ca,Measured 4.10 mg/dL Low 4.30-5.20 [facility] Comment on above: Performed By: #### M G3, BMP3 ####The performing lab is in the report. pH, Ionized Calcium 7.37 Normal 7.31-7.46 [facility] Comment on above: Performed By: #### M G3, BMP3 ####The performing lab is in the report. pH, Ionized Calcium 7.40 Normal 7.31-7.46 [facility] Comment on above: Performed By: #### M G3, BMP3 ####The performing lab is in the report. Ionized Ca,Measured 4.50 mg/dL Normal 4.30-5.20 [facility] Comment on above: Performed By: #### M G3, BMP3 ####The performing lab is in the report. Fibrinogenon 08-10-2017 Fibrinogen 359 mg/dL Normal 200-400 [facility] Comment on above: Performed By: #### Ap G3, BMP3 ####The performing lab is in the report. Hemogramon 08-10-2017 Erythrocyte distribution width Auto Ratio (RBC) 14.7 % High 11.5-14.5 [facility] Comment on above: Performed By: #### M G3, BMP3 ####The performing lab is in the report. Hematocrit Auto Volume Fraction (Bld) 32.7 % Low 40.0-52.0 [facility] Comment on above: Performed By: #### Ap G3, BMP3 ####The performing lab is in the report. Hemoglobin mass conc (Bld) 10.7 g/dL Low 13.0-18.0 [facility] Comment on above: Performed By: #### Ap G3, BMP3 ####The performing lab is in the report. MCH Auto Entitic mass (RBC) 31.1 pg Normal 26.0-34.0 [facility] Comment on above: Performed By: #### Ap G3, BMP3 ####The performing lab is in the report. MCHC Auto mass conc (RBC) 32.8 % Normal 32.0-36.0 [facility] Comment on above: Performed By: #### Ap G3, BMP3 ####The performing lab is in the report. MCV Auto Entitic volume (RBC) 94.7 fL Normal 80.0-98.0 [facility] Comment on above: Performed By: #### Ap G3, BMP3 ####The performing lab is in the report. Platelet mean volume Auto Entitic volume (Bld) 8.5 fL Normal 7.4-10.4 [facility] Comment on above: Performed By: #### Ap G3, BMP3 ####The performing lab is in the report. Platelets Auto #/vol (Bld) 224 10*3/uL Normal 140-440 [facility] Comment on above: Performed By: #### M G3, BMP3 ####The performing lab is in the report. RBC Auto #/vol (Bld) 3.45 10*6/uL Low 4.40-5.90 [facility] Comment on above: Performed By: #### Ap G3, BMP3 ####The performing lab is in the report. WBC Auto #/vol (Bld) 9.7 10*3/uL Normal 3.6-10.7 [facility] Comment on above: Performed By: #### M G3, BMP3 ####The performing lab is in the report. Erythrocyte distribution width Auto Ratio (RBC) 15.0 % High 11.5-14.5 [facility] Comment on above: Performed By: #### Ap G3, BMP3 ####The performing lab is in the report. Hematocrit Auto Volume Fraction (Bld) 32.9 % Low 40.0-52.0 [facility] Comment on above: Performed By: #### Ap G3, BMP3 ####The performing lab is in the report. Hemoglobin mass conc (Bld) 10.9 g/dL Low 13.0-18.0 [facility] Comment on above: Performed By: #### Ap G3, BMP3 ####The performing lab is in the report. MCH Auto Entitic mass (RBC) 31.2 pg Normal 26.0-34.0 [facility] Comment on above: Performed By: #### Ap G3, BMP3 ####The performing lab is in the report. MCHC Auto mass conc (RBC) 33.0 % Normal 32.0-36.0 [facility] Comment on above: Performed By: #### Ap G3, BMP3 ####The performing lab is in the report. MCV Auto Entitic volume (RBC) 94.3 fL Normal 80.0-98.0 [facility] Comment on above: Performed By: #### Ap G3, BMP3 ####The performing lab is in the report. Platelet mean volume Auto Entitic volume (Bld) 8.5 fL Normal 7.4-10.4 [facility] Comment on above: Performed By: #### Ap G3, BMP3 ####The performing lab is in the report. Platelets Auto #/vol (Bld) 199 10*3/uL Normal 140-440 [facility] Comment on above: Performed By: #### Ap G3, BMP3 ####The performing lab is in the report. RBC Auto #/vol (Bld) 3.49 10*6/uL Low 4.40-5.90 [facility] Comment on above: Performed By: #### Ap G3, BMP3 ####The performing lab is in the report. WBC Auto #/vol (Bld) 9.8 10*3/uL Normal 3.6-10.7 [facility] Comment on above: Performed By: #### Ap G3, BMP3 ####The performing lab is in the report. Hemogram w/ Autodiffon 08-10 Abs Baso Cnt 0.1 10*3/uL Normal 0.0-0.2 [facility] Comment on above: Performed By: #### Ap G3, BMP3 ####The performing lab is in the report. Abs Neutrophile Cnt 2.5 10*3/uL Normal 1.8-7.0 [facility] Comment on above: Performed By: #### Ap G3, BMP3 ####The performing lab is in the report. Basophils/100 WBC Auto (Bld) 1.2 % Normal 0.0-2.0 [facility] Comment on above: Performed By: #### Ap G3, BMP3 ####The performing lab is in the report. Eosinophils Auto #/vol (Bld) 0.2 10*3/uL Normal 0.0-0.5 [facility] Comment on above: Performed By: #### Ap G3, BMP3 ####The performing lab is in the report. Eosinophils/100 WBC Auto (Bld) 3.8 % Normal 1.0-6.0 [facility] Comment on above: Performed By: #### Ap G3, BMP3 ####The performing lab is in the report. Erythrocyte distribution width Auto Ratio (RBC) 14.8 % High 11.5-14.5 [facility] Comment on above: Performed By: #### Ap G3, BMP3 ####The performing lab is in the report. Granulocytes/100 WBC (Bld) 56.4 % Normal 40.0-80.0 [facility] Comment on above: Performed By: #### Ap G3, BMP3 ####The performing lab is in the report. Hematocrit Auto Volume Fraction (Bld) 38.4 % Low 40.0-52.0 [facility] Comment on above: Performed By: #### Ap G3, BMP3 ####The performing lab is in the report. Hemoglobin mass conc (Bld) 12.5 g/dL Low 13.0-18.0 [facility] Comment on above: Performed By: #### M G3, BMP3 ####The performing lab is in the report. Lymphocytes Auto #/vol (Bld) 1.3 10*3/uL Normal 1.0-4.3 [facility] Comment on above: Performed By: #### Ap G3, BMP3 ####The performing lab is in the report. Lymphocytes/100 WBC Auto (Bld) 29.9 % Normal 20.0-40.0 [facility] Comment on above: Performed By: #### Ap G3, BMP3 ####The performing lab is in the report. MCH Auto Entitic mass (RBC) 31.0 pg Normal 26.0-34.0 [facility] Comment on above: Performed By: #### Ap G3, BMP3 ####The performing lab is in the report. MCHC Auto mass conc (RBC) 32.7 % Normal 32.0-36.0 [facility] Comment on above: Performed By: #### Ap G3, BMP3 ####The performing lab is in the report. MCV Auto Entitic volume (RBC) 94.7 fL Normal 80.0-98.0 [facility] Comment on above: Performed By: #### Ap G3, BMP3 ####The performing lab is in the report. Monocytes Auto #/vol (Bld) 0.4 10*3/uL Normal 0.0-0.8 [facility] Comment on above: Performed By: #### Ap G3, BMP3 ####The performing lab is in the report. Monocytes/100 WBC Auto (Bld) 8.7 % Normal 2.0-10.0 [facility] Comment on above: Performed By: #### Ap G3, BMP3 ####The performing lab is in the report. Platelet mean volume Auto Entitic volume (Bld) 8.7 fL Normal 7.4-10.4 [facility] Comment on above: Performed By: #### M G3, BMP3 ####The performing lab is in the report. Platelets Auto #/vol (Bld) 281 10*3/uL Normal 140-440 [facility] Comment on above: Performed By: #### M G3, BMP3 ####The performing lab is in the report. RBC Auto #/vol (Bld) 4.05 10*6/uL Low 4.40-5.90 [facility] Comment on above: Performed By: #### M G3, BMP3 ####The performing lab is in the report. WBC Auto #/vol (Bld) 4.4 10*3/uL Normal 3.6-10.7 [facility] Comment on above: Performed By: #### M G3, BMP3 ####The performing lab is in the report. Magnesiumon 08-10-2017 Magnesium mass conc 3.2 mg/dL High 1.6-2.3 [facility] Comment on above: Performed By: #### M G3, BMP3 ####The performing lab is in the report. Magnesium mass conc 3.0 mg/dL High 1.6-2.3 [facility] Comment on above: Performed By: #### M G3, BMP3 ####The performing lab is in the report. Magnesium mass conc 2.1 mg/dL Normal 1.6-2.3 [facility] Comment on above: Performed By: #### M G3, BMP3 ####The performing lab is in the report. PF Full PFT Studyon 08-11-19 18 PF Full PFT Study Patient Name: JAMES REYES Pulmonary Function Exam Date/Time 08/09/2017 15:19:54 EDT Exam PF Full PFT Study Ordering Physician STACEY CLEMONS Accession Number [id number] Reason For Exam Chest pain Report Diffusion [...] Time: 08/10/2017 4:40 Normal [facility] Phosphoruson 08-10-2017 Phosphate mass conc 2.9 mg/dL Normal 2.5-4.5 [facility] Comment on above: Performed By: #### I CA, HEMOG, PT, FIBGN, MG3, BMP3, PHOS3 ####The performing lab is in the report. Phosphate mass conc 2.6 mg/dL Normal 2.5-4.5 [facility] Comment on above: Performed By: #### M G3, BMP3 ####The performing lab is in the report. Prothrombin Timeon 8 INR Coag RelTime (PPP) 1.0 {INR} Normal 0.9-1.1 [facility] Comment on above: Result Comment: Lux mmended [...] 10.7 s Normal 9.0-12.0 [facility] Comment on above: Result Comment: . Performed By: #### M G3, BMP3 ####The performing lab is in the report. Protimeon 08-10-2017 INR Coag RelTime (PPP) 1.1 {INR} Normal 0.9-1.1 [facility] Comment on above: Result Comment: Lux mmended [...] 11.8 s Normal 9.0-12.0 [facility] Comment on above: Result Comment: . Performed By: #### M G3, BMP3 ####The performing lab is in the report. aPTT Coag time (Bld) 24.1 s Normal 20.0-30.5 [facility] Comment on above: Result Comment: NOTE : The therapeutic time for Heparin anticoagulation,based on Xa activity inhibition, is an APTT of 46-80seconds. Performed By: #### M G3, BMP3 ####The performing lab is in the report. APTTon 08-09-2017 aPTT Coag time (Bld) 26.4 s Normal 20.0-30.5 [facility] Comment on above: Result Comment: NOTE : The therapeutic time for Heparin anticoagulation,based on Xa activity inhibition, is an APTT of 46-80seconds. Performed By: #### H EMDF, APTT, HA1C2 ####The performing lab is in the report. Basic Metabolic Panelon 07-17 Anion gap 3 molar conc 6 mmol/L Normal [facility] Comment on above: Performed By: #### H EMDF, MG3, BMP3 ####The performing lab is in the report. Calcium mass conc 9.1 mg/dL Normal 8.4-10.2 [facility] Comment on above: Performed By: #### H EMDF, MG3, BMP3 ####The performing lab is in the report. CO2 molar conc 29 mmol/L Normal 22-30 [facility] Comment on above: Performed By: #### H EMDF, MG3, BMP3 ####The performing lab is in the report. Glucose mass conc 138 mg/dL High 70-100 [facility] Comment on above: Performed By: #### H EMDF, MG3, BMP3 ####The performing lab is in the report. Urea nitrogen mass conc 15 mg/dL Normal 7-20 [facility] Comment on above: Performed By: #### H EMDF, MG3, BMP3 ####The performing lab is in the report. Creatinine mass conc 0.86 mg/dL Normal 0.52-1.25 [facility] Comment on above: Performed By: #### H EMDF, MG3, BMP3 ####The performing lab is in the report. GFR/1.73 sq M predicted among blacks MDRD vol rate/area (S/P/Bld) mL/min/{1.73_m2} Normal >60 [facility] Comment on above: Performed By: #### H EMDF, MG3, BMP3 ####The performing lab is in the report. GFR/1.73 sq M predicted among non-blacks MDRD vol rate/area (S/P/Bld) mL/min/{1.73_m2} Normal >60 [facility] Comment on above: Result Comment: Sour ce- MDRD equation with creatinine calibration to IDMS(NKDEP)eGFR not recommended for drug dose adjustment Performed By: #### H EMDF, MG3, BMP3 ####The performing lab is in the report. Chloride molar conc 107 mmol/L Normal 98-107 [facility] Comment on above: Performed By: #### H EMDF, MG3, BMP3 ####The performing lab is in the report. Potassium molar conc 4.2 mmol/L Normal 3.5-5.1 [facility] Comment on above: Performed By: #### H EMDF, MG3, BMP3 ####The performing lab is in the report. Sodium molar conc 142 mmol/L Normal 137-145 [facility] Comment on above: Performed By: #### H EMDF, MG3, BMP3 ####The performing lab is in the report. Hemoglobin A1Con 08-09-2017 Glucose mass conc 148 mg/dL Normal [facility] Comment on above: Performed By: #### H EMDF, APTT, HA1C2 ####The performing lab is in the report. Hemoglobin A1c/Hemoglobin.total mass fraction (Bld) 6.8 % High 4.0-5.7 [facility] Comment on above: Result Comment: --Hg bA1C levels may not be accurate in patients who haverenal disease, received recent blood transfusions, are anemic,or who have dyshemoglobinemia. Performed By: #### H EMDF, APTT, HA1C2 ####The performing lab is in the report. Hemogram w/ Autodiffon 08-09 Abs Baso Cnt 0.1 10*3/uL Normal 0.0-0.2 [facility] Comment on above: Performed By: #### H EMDF, APTT, HA1C2 ####The performing lab is in the report. Abs Neutrophile Cnt 3.3 10*3/uL Normal 1.8-7.0 [facility] Comment on above: Performed By: #### H EMDF, APTT, HA1C2 ####The performing lab is in the report. Basophils/100 WBC Auto (Bld) 1.9 % Normal 0.0-2.0 [facility] Comment on above: Performed By: #### H EMDF, APTT, HA1C2 ####The performing lab is in the report. Eosinophils Auto #/vol (Bld) 0.1 10*3/uL Normal 0.0-0.5 [facility] Comment on above: Performed By: #### H EMDF, APTT, HA1C2 ####The performing lab is in the report. Eosinophils/100 WBC Auto (Bld) 2.1 % Normal 1.0-6.0 [facility] Comment on above: Performed By: #### H EMDF, APTT, HA1C2 ####The performing lab is in the report. Erythrocyte distribution width Auto Ratio (RBC) 14.6 % High 11.5-14.5 [facility] Comment on above: Performed By: #### H EMDF, APTT, HA1C2 ####The performing lab is in the report. Granulocytes/100 WBC (Bld) 69.9 % Normal 40.0-80.0 [facility] Comment on above: Performed By: #### H EMDF, APTT, HA1C2 ####The performing lab is in the report. Hematocrit Auto Volume Fraction (Bld) 38.9 % Low 40.0-52.0 [facility] Comment on above: Performed By: #### H EMDF, APTT, HA1C2 ####The performing lab is in the report. Hemoglobin mass conc (Bld) 12.6 g/dL Low 13.0-18.0 [facility] Comment on above: Performed By: #### H EMDF, APTT, HA1C2 ####The performing lab is in the report. Lymphocytes Auto #/vol (Bld) 0.8 10*3/uL Low 1.0-4.3 [facility] Comment on above: Performed By: #### H EMDF, APTT, HA1C2 ####The performing lab is in the report. Lymphocytes/100 WBC Auto (Bld) 17.7 % Low 20.0-40.0 [facility] Comment on above: Performed By: #### H EMDF, APTT, HA1C2 ####The performing lab is in the report. MCH Auto Entitic mass (RBC) 30.6 pg Normal 26.0-34.0 [facility] Comment on above: Performed By: #### H EMDF, APTT, HA1C2 ####The performing lab is in the report. MCHC Auto mass conc (RBC) 32.5 % Normal 32.0-36.0 [facility] Comment on above: Performed By: #### H EMDF, APTT, HA1C2 ####The performing lab is in the report. MCV Auto Entitic volume (RBC) 94.0 fL Normal 80.0-98.0 [facility] Comment on above: Performed By: #### H EMDF, APTT, HA1C2 ####The performing lab is in the report. Monocytes Auto #/vol (Bld) 0.4 10*3/uL Normal 0.0-0.8 [facility] Comment on above: Performed By: #### H EMDF, APTT, HA1C2 ####The performing lab is in the report. Monocytes/100 WBC Auto (Bld) 8.4 % Normal 2.0-10.0 [facility] Comment on above: Performed By: #### H EMDF, APTT, HA1C2 ####The performing lab is in the report. Platelet mean volume Auto Entitic volume (Bld) 8.9 fL Normal 7.4-10.4 [facility] Comment on above: Performed By: #### H EMDF, APTT, HA1C2 ####The performing lab is in the report. Platelets Auto #/vol (Bld) 280 10*3/uL Normal 140-440 [facility] Comment on above: Performed By: #### H EMDF, APTT, HA1C2 ####The performing lab is in the report. RBC Auto #/vol (Bld) 4.14 10*6/uL Low 4.40-5.90 [facility] Comment on above: Performed By: #### H EMDF, APTT, HA1C2 ####The performing lab is in the report. WBC Auto #/vol (Bld) 4.7 10*3/uL Normal 3.6-10.7 [facility] Comment on above: Performed By: #### H EMDF, APTT, HA1C2 ####The performing lab is in the report. Abs Baso Cnt 0.1 10*3/uL Normal 0.0-0.2 [facility] Comment on above: Performed By: #### H EMDF, MG3, BMP3 ####The performing lab is in the report. Abs Neutrophile Cnt 3.0 10*3/uL Normal 1.8-7.0 [facility] Comment on above: Performed By: #### H EMDF, MG3, BMP3 ####The performing lab is in the report. Basophils/100 WBC Auto (Bld) 1.1 % Normal 0.0-2.0 [facility] Comment on above: Performed By: #### H EMDF, MG3, BMP3 ####The performing lab is in the report. Eosinophils Auto #/vol (Bld) 0.1 10*3/uL Normal 0.0-0.5 [facility] Comment on above: Performed By: #### H EMDF, MG3, BMP3 ####The performing lab is in the report. Eosinophils/100 WBC Auto (Bld) 2.8 % Normal 1.0-6.0 [facility] Comment on above: Performed By: #### H EMDF, MG3, BMP3 ####The performing lab is in the report. Erythrocyte distribution width Auto Ratio (RBC) 14.9 % High 11.5-14.5 [facility] Comment on above: Performed By: #### H EMDF, MG3, BMP3 ####The performing lab is in the report. Granulocytes/100 WBC (Bld) 62.0 % Normal 40.0-80.0 [facility] Comment on above: Performed By: #### H EMDF, MG3, BMP3 ####The performing lab is in the report. Hematocrit Auto Volume Fraction (Bld) 40.1 % Normal 40.0-52.0 [facility] Comment on above: Performed By: #### H EMDF, MG3, BMP3 ####The performing lab is in the report. Hemoglobin mass conc (Bld) 13.2 g/dL Normal 13.0-18.0 [facility] Comment on above: Performed By: #### H EMDF, MG3, BMP3 ####The performing lab is in the report. Lymphocytes Auto #/vol (Bld) 1.2 10*3/uL Normal 1.0-4.3 [facility] Comment on above: Performed By: #### H EMDF, MG3, BMP3 ####The performing lab is in the report. Lymphocytes/100 WBC Auto (Bld) 25.8 % Normal 20.0-40.0 [facility] Comment on above: Performed By: #### H EMDF, MG3, BMP3 ####The performing lab is in the report. MCH Auto Entitic mass (RBC) 30.8 pg Normal 26.0-34.0 [facility] Comment on above: Performed By: #### H EMDF, MG3, BMP3 ####The performing lab is in the report. MCHC Auto mass conc (RBC) 32.8 % Normal 32.0-36.0 [facility] Comment on above: Performed By: #### H EMDF, MG3, BMP3 ####The performing lab is in the report. MCV Auto Entitic volume (RBC) 94.0 fL Normal 80.0-98.0 [facility] Comment on above: Performed By: #### H EMDF, MG3, BMP3 ####The performing lab is in the report. Monocytes Auto #/vol (Bld) 0.4 10*3/uL Normal 0.0-0.8 [facility] Comment on above: Performed By: #### H EMDF, MG3, BMP3 ####The performing lab is in the report. Monocytes/100 WBC Auto (Bld) 8.3 % Normal 2.0-10.0 [facility] Comment on above: Performed By: #### H EMDF, MG3, BMP3 ####The performing lab is in the report. Platelet mean volume Auto Entitic volume (Bld) 8.7 fL Normal 7.4-10.4 [facility] Comment on above: Performed By: #### H EMDF, MG3, BMP3 ####The performing lab is in the report. Platelets Auto #/vol (Bld) 274 10*3/uL Normal 140-440 [facility] Comment on above: Performed By: #### H EMDF, MG3, BMP3 ####The performing lab is in the report. RBC Auto #/vol (Bld) 4.27 10*6/uL Low 4.40-5.90 [facility] Comment on above: Performed By: #### H EMDF, MG3, BMP3 ####The performing lab is in the report. WBC Auto #/vol (Bld) 4.8 10*3/uL Normal 3.6-10.7 [facility] Comment on above: Performed By: #### H EMDF, MG3, BMP3 ####The performing lab is in the report. Magnesiumon 08-09-2017 Magnesium mass conc 2.0 mg/dL Normal 1.6-2.3 [facility] Comment on above: Performed By: #### H EMDF, MG3, BMP3 ####The performing lab is in the report. TS GELon 08-09-2017 TS GEL ABO Group: A Rh, Gel: POS Antibody Screen Gel: NEG Normal [facility] Comment on above: Performed By: #### M G3, BMP3 ####The performing lab is in the report. Urinalysis,Macroon 8 Appearance clear Normal Clear [facility] Comment on above: Performed By: #### M G3, BMP3 ####The performing lab is in the report. Bilirubin,Ur Negative Normal Negative [facility] Comment on above: Performed By: #### M G3, BMP3 ####The performing lab is in the report. Color yellow Normal Lt. Yellow [facility] Comment on above: Performed By: #### M G3, BMP3 ####The performing lab is in the report. Glucose Ql (U) NORM Normal Negative [facility] Comment on above: Performed By: #### M G3, BMP3 ####The performing lab is in the report. Ketone,Urine Negative Normal Negative [facility] Comment on above: Performed By: #### M G3, BMP3 ####The performing lab is in the report. Leukocytes Negative Normal Negative [facility] Comment on above: Performed By: #### M G3, BMP3 ####The performing lab is in the report. Nitrites Negative Normal Negative [facility] [facility] Comment on above: Performed By: #### M G3, BMP3 ####The performing lab is in the report. Occult Blood,Ur Negative Normal Negative [facility] Comment on above: Performed By: #### M G3, BMP3 ####The performing lab is in the report. pH Test strip (U) 7.0 [pH] Normal 5.0-8.0 [facility] Comment on above: Performed By: #### Ap G3, BMP3 ####The performing lab is in the report. Specific [place],Urine 1.005 Normal 1.005-1.030 [facility] Comment on above: Performed By: #### M G3, BMP3 ####The performing lab is in the report. Total Protein,Urine Negative Normal Negative [facility] Comment on above: Performed By: #### M G3, BMP3 ####The performing lab is in the report. Urobilinogen NORM Normal 0-1 [facility] Comment on above: Performed By: #### M G3, BMP3 ####The performing lab is in the report. Basic Metabolic Panelon 04-2 Anion gap 3 molar conc 7 mmol/L Normal [facility] Comment on above: Performed By: #### Ap G3, BMP3 ####The performing lab is in the report. Calcium mass conc 9.0 mg/dL Normal 8.4-10.2 [facility] Comment on above: Performed By: #### Ap G3, BMP3 ####The performing lab is in the report. CO2 molar conc 26 mmol/L Normal 22-30 [facility] Comment on above: Performed By: #### Ap G3, BMP3 ####The performing lab is in the report. Glucose mass conc 162 mg/dL High 70-100 [facility] Comment on above: Performed By: #### Ap G3, BMP3 ####The performing lab is in the report. Urea nitrogen mass conc 18 mg/dL Normal 7-20 [facility] Comment on above: Performed By: #### Ap G3, BMP3 ####The performing lab is in the report. Creatinine mass conc 0.95 mg/dL Normal 0.52-1.25 [facility] Comment on above: Performed By: #### Ap G3, BMP3 ####The performing lab is in the report. GFR/1.73 sq M predicted among blacks MDRD vol rate/area (S/P/Bld) mL/min/{1.73_m2} Normal >60 [facility] Comment on above: Performed By: #### M G3, BMP3 ####The performing lab is in the report. GFR/1.73 sq M predicted among non-blacks MDRD vol rate/area (S/P/Bld) mL/min/{1.73_m2} Normal >60 [facility] Comment on above: Result Comment: Sour ce- MDRD equation with creatinine calibration to IDMS(NKDEP)eGFR not recommended for drug dose adjustment Performed By: #### M G3, BMP3 ####The performing lab is in the report. Potassium molar conc 4.1 mmol/L Normal 3.5-5.1 [facility] [employer] [facility] Comment on above: Performed By: #### M G3, BMP3 ####The performing lab is in the report. Chloride molar conc 105 mmol/L Normal 98-107 [facility] Comment on above: Performed By: #### M G3, BMP3 ####The performing lab is in the report. Sodium molar conc 138 mmol/L Normal 137-145 [facility] Comment on above: Performed By: #### M G3, BMP3 ####The performing lab is in the report. Magnesiumon 08-08-2017 Magnesium mass conc 2.1 mg/dL Normal 1.6-2.3 [facility] Comment on above: Performed By: #### M G3, BMP3 ####The performing lab is in the report. VL Vein Map for Preop Bypass [place] 08-08-2017 VL Vein Map for Preop Bypass [place] Patient Name: JAMES REYES Ultrasound Exam Date/Time 08/08/2017 16:04:08 EDT Exam VL Vein Map for Preop Bypass [place] Ordering Physician STACEY CLEMONS Accession Number [id number] CPT4 Codes 71753 () Reason For Exam pre op cabg Report [facility] ------ --- Bilateral LE Vein Mapping For Bypass Report Patient Name: James Reyes : 1955 Study Date: 08/08/2017 (61yrs) Age: 61 Account: [id number] Gender: M Loc: BP: Ordering: Stacey Clemons Technologist: Ordering Physician: Stacey Clemons Telegraph Operator: Annie Castillo RVT Interpreting Physician: Willy Boykin ------ --- Location: [facility] ------ --- INDICATIONS: Pre OP CABG. 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 [facility] ------ --- CARDIAC CATHETERIZATION Patient: James Ryees Procedure Date: 08/07/2017 : 1955 Age: 61 [...] 6:39 pm Signed by: KEVIN DA SILVA [facility] Other 10-02-2006 CONVERTED ELECTRONIC SIGNATURE KRISSY MONTERO M.D., PATHOLOGIST (Electronic signature on file) Final Signed Out: 10/02/2006 13:35 [facility] CONVERTED FINAL DIAGNOSIS GASTRIC ANTRUM, BIOPSY - CHRONIC ACTIVE GASTRITIS. MICRO-ORGANISMS SUGGESTIVE OF HELICOBACTER PYLORI. NEGATIVE FOR DYSPLASIA OR CARCINOMA. AB/PAS STAIN REVIEWED. [facility] CONVERTED ORDERING PROVIDER Ordering Provider: ELIN GOOD [facility] OCT CHAPO TILLMAN (BOTH E YES) [facility] Vital Signs Date Time Vital Sign Value Performing Clinician Tash vargas 01-27-2025 14:25-0400 Body height 182.9 cm Suzy Corcoran MD Work Phone: [facility] 01-27-2025 14:25-0400 Diastolic blood pressure 66 mm[Hg] Otfried Nilo MARTINEZ Work Phone: [facility] [employer] 01-27-2025 14:25-0400 Heart rate 84 /min Otfried Nilo MARTINEZ Work Phone: [facility] [employer] 01-27-2025 14:25-0400 SaO2% (BldA) [Mass fraction] 94 % Otfried Nilo MARTINEZ Work Phone: [facility] [employer] 01-27-2025 14:25-0400 Systolic blood pressure 100 mm[Hg] Otfried Nilo MARTINEZ Work Phone: [facility] [employer] 01-14-2025 08:10-0400 Body height 182.9 cm Pepe Marino MD Work Phone: [facility] [employer] 01-14-2025 08:10-0400 Body mass index (BMI) [Ratio] 39.74 kg/m2 Pepe Marino MD Work Phone: [facility] [employer] 01-14-2025 08:10-0400 Body weight 132.9 kg Pepe Marino MD Work Phone: [facility] [employer] 01-14-2025 08:10-0400 Diastolic blood pressure 62 mm[Hg] Pepe Marino MD Work Phone: [facility] [employer] 01-14-2025 08:10-0400 Heart rate 85 /min Pepe Marino MD Work Phone: [facility] [employer] 01-14-2025 08:10-0400 Systolic blood pressure 125 mm[Hg] Pepe Marino MD Work Phone: [facility] [employer] 11-05-2024 10:51-0400 Body height 193 cm Chema Hair MD Work Phone: [facility] 11-05-2024 10:51-0400 Body height 193.04 cm Chema Hair MD Work Phone: [facility] 11-05-2024 10:51-0400 Body mass index (BMI) [Ratio] 36.65 kg/m2 Chema Hair MD Work Phone: [facility] 11-05-2024 10:51-0400 Body weight 136 kg Chema Hair MD Work Phone: [facility] 11-05-2024 10:51-0400 Body weight 136.08 kg Chema Hair MD Work Phone: [facility] 11-05-2024 10:51-0400 HGHTCHNVIS Chema Hair MD Work Phone: [facility] 11-05-2024 10:51-0400 VITALSDONE Chema Hair MD Work Phone: [facility] 07-17-2024 12:23-0400 Heart rate 60 /min Amanuel Parisi MD Work Phone: [facility] 07-17-2024 12:23-0400 SaO2% (BldA) [Mass fraction] 97 % Amanuel Parisi MD Work Phone: [facility] 07-17-2024 07:32-0400 Body temperature 97.11 [degF] Amanuel Parisi MD Work Phone: [facility] 07-17-2024 07:32-0400 Diastolic blood pressure 69 mm[Hg] Amanuel Parisi MD Work Phone: [facility] 07-17-2024 07:32-0400 Respiratory rate 18 /min Amanuel Parisi MD Work Phone: [facility] 07-17-2024 07:32-0400 Systolic blood pressure 133 mm[Hg] Amanuel Parisi MD Work Phone: [facility] 07-15-2024 17:31-0400 SaO2% (BldA) [Mass fraction] 92.2 % Amanuel Parisi MD Work Phone: [facility] 07-15-2024 11:40-0400 Body mass index (BMI) [Ratio] 39.74 kg/m2 Amanuel Parisi MD Work Phone: [employer] [employer] 07-15-2024 11:40-0400 Body weight 132.9 kg Amanuel Parisi MD Work Phone: [facility] [employer] 06-27-2024 11:19-0400 Diastolic blood pressure 69 mm[Hg] Pepe Marino MD Work Phone: [facility] [employer] 06-27-2024 11:19-0400 Heart rate 70 /min Pepe Marino MD Work Phone: [facility] [employer] 06-27-2024 11:19-0400 Systolic blood pressure 124 mm[Hg] Pepe Marino MD Work Phone: [facility] [employer] 06-04-2024 12:13-0500 SaO2% (BldA) [Mass fraction] 93 % Arsh Mar MD Work Phone: [facility] 06-04-2024 08:27-0500 Body temperature 96.49 [degF] Arsh Mar MD Work Phone: [facility] 06-04-2024 08:27-0500 Diastolic blood pressure 71 mm[Hg] Arsh Mar MD Work Phone: [facility] [employer] 06-04-2024 08:27-0500 Heart rate 52 /min Arsh Mar MD Work Phone: [facility] [employer] 06-04-2024 08:27-0500 Respiratory rate 18 /min Arsh Mar MD Work Phone: [facility] [employer] 06-04-2024 08:27-0500 Systolic blood pressure 144 mm[Hg] Arsh Mar MD Work Phone: [facility] [employer] 06-04-2024 06:00-0500 Body mass index (BMI) [Ratio] 39.86 kg/m2 Arsh Mar MD Work Phone: [facility] [employer] 06-04-2024 06:00-0500 Body weight 133.3 kg Arsh Mar MD Work Phone: [facility] [employer] 05-31-2024 10:56-0500 Body height 182.9 cm Arsh Mar MD Work Phone: [facility] [employer] 05-30-2024 13:55-0500 SaO2% (BldA) [Mass fraction] 95.9 % Arsh Mar MD Work Phone: [facility] [employer] 05-30-2024 09:49-0500 SaO2% (BldA) [Mass fraction] 89.5 % Arsh Mar MD Work Phone: [facility] [employer] 05-13-2024 13:10-0500 Body height 185.4 cm Pepe Marino MD Work Phone: [facility] [employer] 05-13-2024 13:10-0500 Body mass index (BMI) [Ratio] 39.58 kg/m2 Pepe Marino MD Work Phone: [employer] 05-13-2024 13:10-0500 Body weight 136.08 kg Pepe Marino MD Work Phone: [facility] 05-13-2024 13:10-0500 Diastolic blood pressure 50 mm[Hg] Pepe Marino MD Work Phone: [facility] 05-13-2024 13:10-0500 Heart rate 68 /min Pepe Marino MD Work Phone: [facility] [employer] 05-13-2024 13:10-0500 Systolic blood pressure 100 mm[Hg] Pepe Marino MD Work Phone: [facility] [employer] 03-08-2024 08:32-0500 Body height 182.9 cm Sadine Oredein ASSOCIATE PROFESSOR OF AUTOMATION - SEISMIC PROSPECTING SUPERVISOR Work Phone: [facility] [employer] 03-08-2024 08:32-0500 Body mass index (BMI) [Ratio] 38.52 kg/m2 Sadine Oredein ASSOCIATE PROFESSOR OF AUTOMATION - SEISMIC PROSPECTING SUPERVISOR Work Phone: [facility] [employer] 03-08-2024 08:32-0500 Body weight 128.82 kg Sadine Oredein ASSOCIATE PROFESSOR OF AUTOMATION - SEISMIC PROSPECTING SUPERVISOR Work Phone: [facility] [employer] 03-08-2024 08:32-0500 Diastolic blood pressure 48 mm[Hg] Sadine Oredein ASSOCIATE PROFESSOR OF AUTOMATION - SEISMIC PROSPECTING SUPERVISOR Work Phone: [facility] [employer] 03-08-2024 08:32-0500 Heart rate 77 /min Che Alegria ASSOCIATE PROFESSOR OF AUTOMATION - SEISMIC PROSPECTING SUPERVISOR Work Phone: [facility] [employer] 03-08-2024 08:32-0500 SaO2% (BldA) [Mass fraction] 95 % Che Alegria ASSOCIATE PROFESSOR OF AUTOMATION - SEISMIC PROSPECTING SUPERVISOR Work Phone: [facility] [employer] 03-08-2024 08:32-0500 Systolic blood pressure 96 mm[Hg] Che Alegria ASSOCIATE PROFESSOR OF AUTOMATION - SEISMIC PROSPECTING SUPERVISOR Work Phone: [facility] [employer] 12-05-2023 13:07-0400 Diastolic blood pressure 61 mm[Hg] Bette Skiffey DO Work Phone: [facility] [employer] 12-05-2023 13:07-0400 Heart rate 56 /min Bette Skiffey DO Work Phone: [facility] [employer] 12-05-2023 13:07-0400 Respiratory rate 18 /min Bette Mckeonffey DO Work Phone: [facility] [employer] 12-05-2023 13:07-0400 SaO2% (BldA) [Mass fraction] 93 % Bette Skiffey DO Work Phone: [facility] [employer] 12-05-2023 13:07-0400 Systolic blood pressure 157 mm[Hg] Bette Skiffey DO Work Phone: [facility] [employer] 12-05-2023 13:07-0400 Body temperature 97.3 [degF] Bette Skiffey DO Work Phone: [facility] [employer] 11-30-2023 11:39-0400 Body height 188 cm Bette Skiffey DO Work Phone: [facility] [employer] 11-30-2023 11:39-0400 Body mass index (BMI) [Ratio] 35.82 kg/m2 Bette Skiffey DO Work Phone: [facility] [employer] 11-30-2023 11:39-0400 Body weight 126.55 kg Bette Skiffey DO Work Phone: [facility] [employer] 09-14-2023 09:09-0400 Diastolic blood pressure 71 mm[Hg] Rony Arriaza DMD, MD [facility] 09-14-2023 09:09-0400 Heart rate 59 /min Rony [facility]riaza DMD, MD [facility] 09-14-2023 09:09-0400 Systolic blood pressure 134 mm[Hg] Rony Arriaza DMD, MD [facility] 09-05-2023 09:35-0400 Body height 188 cm Rony Arriaza DMD, MD [facility] 09-05-2023 09:35-0400 Body mass index (BMI) [Ratio] 36.59 kg/m2 Rony Arriaza DMD, MD [facility] 09-05-2023 09:35-0400 Body weight 129.28 kg Rony Arriaza DMD, MD [facility] 08-21-2023 10:08-0400 Body height 185.4 cm Otkillian Corcoran MD Work Phone: [facility] [employer] 08-21-2023 10:08-0400 Diastolic blood pressure 62 mm[Hg] Otfrphilip Corcoran MD Work Phone: [facility] [employer] 08-21-2023 10:08-0400 Heart rate 56 /min Otfrphilip Corcoran MD Work Phone: [facility] [employer] 08-21-2023 10:08-0400 SaO2% (BldA) [Mass fraction] 93 % Otfried Nilo MARTINEZ Work Phone: [facility] [employer] 08-21-2023 10:08-0400 Systolic blood pressure 108 mm[Hg] Otfrphilip Corcoran MD Work Phone: [facility] [employer] 07-14-2023 11:56-0400 Body height 185.4 cm Mingo Carrasco CNP Work Phone: [facility] [employer] 07-14-2023 11:56-0400 Body mass index (BMI) [Ratio] 36.41 kg/m2 Mingo Gavin APRN - SEISMIC PROSPECTING SUPERVISOR Work Phone: [facility] [employer] 07-14-2023 11:56-0400 Body weight 125.19 kg Mingo Gavin APRN - SEISMIC PROSPECTING SUPERVISOR Work Phone: [facility] [employer] 05-12-2023 10:01-0500 Body height 185.4 cm Mingo Gavin APRN - SEISMIC PROSPECTING SUPERVISOR Work Phone: [facility] [employer] 05-12-2023 10:01-0500 Body mass index (BMI) [Ratio] 36.41 kg/m2 Mingo Gavin APRN - SEISMIC PROSPECTING SUPERVISOR Work Phone: [facility] [employer] 05-12-2023 10:01-0500 Body weight 125.19 kg Mingo Gavin APRN - SEISMIC PROSPECTING SUPERVISOR Work Phone: [facility] [employer] 05-12-2023 10:01-0500 Diastolic blood pressure 60 mm[Hg] Mingo Gavin APRN - SEISMIC PROSPECTING SUPERVISOR Work Phone: [facility] [employer] 05-12-2023 10:01-0500 Heart rate 62 /min Mingo Gavin APRN - SEISMIC PROSPECTING SUPERVISOR Work Phone: [facility] [employer] 05-12-2023 10:01-0500 SaO2% (BldA) [Mass fraction] 98 % Mingo Gavin APRN - SEISMIC PROSPECTING SUPERVISOR Work Phone: [facility] [employer] 05-12-2023 10:01-0500 Systolic blood pressure 104 mm[Hg] Mingo Gavin APRN - SEISMIC PROSPECTING SUPERVISOR Work Phone: [facility] [employer] 04-24-2023 08:16-0500 Body height 182.9 cm Bette Arreola DO Work Phone: [facility] [employer] 04-24-2023 08:16-0500 Body mass index (BMI) [Ratio] 37.97 kg/m2 Bette Arreola DO Work Phone: [facility] [employer] 04-24-2023 08:16-0500 Body weight 127.01 kg Bette Arreola DO Work Phone: [facility] 04-24-2023 07:45-0500 Diastolic blood pressure 51 mm[Hg] Bette Sanchezy DO Work Phone: [facility] 04-24-2023 07:45-0500 Heart rate 68 /min Bette Mckeonffey DO Work Phone: [facility] 04-24-2023 07:45-0500 Respiratory rate 18 /min Bette Arreola DO Work Phone: [facility] 04-24-2023 07:45-0500 SaO2% (BldA) [Mass fraction] 94 % Bette Arreola DO Work Phone: [facility] 04-24-2023 07:45-0500 Systolic blood pressure 112 mm[Hg] Bette Sanchezy DO Work Phone: [facility] 04-23-2023 20:11-0500 Body temperature 97.59 [degF] Bette Arreola DO Work Phone: [facility] [employer] 02-22-2023 10:01-0500 Body mass index (BMI) [Ratio] 33.64 kg/m2 Otfried Nilo MARTINEZ Work Phone: [facility] 02-22-2023 10:01-0500 Body weight 118.84 kg Otfrphilip Corcoran MD Work Phone: [facility] 02-22-2023 10:01-0500 Diastolic blood pressure 62 mm[Hg] Otfried Nilo MARTINEZ Work Phone: [facility] 02-22-2023 10:01-0500 Heart rate 102 /min Otfried Nilo MARTINEZ Work Phone: [facility] 02-22-2023 10:01-0500 SaO2% (BldA) [Mass fraction] 98 % Otfrphilip Corcoran MD Work Phone: [facility] 02-22-2023 10:01-0500 Systolic blood pressure 130 mm[Hg] Otfrphilip Corcoran MD Work Phone: [facility] 12-13-2022 11:57-0400 Body height 188 cm David Chen MD Work Phone: [facility] [employer] 12-13-2022 11:57-0400 Body mass index (BMI) [Ratio] 37.88 kg/m2 David Chen MD Work Phone: [facility] [employer] 12-13-2022 11:57-0400 Body weight 133.81 kg aDvid Chen MD Work Phone: [facility] [employer] 12-13-2022 11:57-0400 Diastolic blood pressure 64 mm[Hg] David Chen MD Work Phone: [facility] [employer] 12-13-2022 11:57-0400 Heart rate 72 /min David Chen MD Work Phone: [facility] [employer] 12-13-2022 11:57-0400 Systolic blood pressure 102 mm[Hg] David Chen MD Work Phone: [facility] [employer] 07-18-2022 15:36-0400 Body temperature 98.1 [degF] Chelle Troncoso Work Phone: [facility] [employer] 07-18-2022 15:36-0400 Diastolic blood pressure 75 mm[Hg] Chelle Troncoso Work Phone: [facility] [employer] 07-18-2022 15:36-0400 Heart rate 60 /min Chelle Troncoso Work Phone: [facility] [employer] 07-18-2022 15:36-0400 Respiratory rate 20 /min Chelle Troncoso Work Phone: [facility] [employer] 07-18-2022 15:36-0400 SaO2% (BldA) [Mass fraction] 95 % Chelle Troncoso Work Phone: [facility] [employer] 07-18-2022 15:36-0400 Systolic blood pressure 139 mm[Hg] Chelle Troncoso Work Phone: [facility] [employer] 07-18-2022 13:41-0400 Body height 188 cm Chelle Troncoso Work Phone: [facility] [employer] 07-18-2022 13:41-0400 Body mass index (BMI) [Ratio] 38.52 kg/m2 Chelle Troncoso Work Phone: [facility] [employer] 07-18-2022 13:41-0400 Body weight 136.08 kg Chelle Troncoso Work Phone: [facility] [employer] 06-07-2022 11:39-0500 Body height 188 cm David Chen MD Work Phone: [facility] [employer] 06-07-2022 11:39-0500 Body mass index (BMI) [Ratio] 37.49 kg/m2 David Chen MD Work Phone: [facility] [employer] 06-07-2022 11:39-0500 Body weight 132.45 kg David Chen MD Work Phone: [facility] [employer] 06-07-2022 11:39-0500 Diastolic blood pressure 59 mm[Hg] David Chen MD Work Phone: [facility] [employer] 06-07-2022 11:39-0500 Heart rate 76 /min David Chen MD Work Phone: [facility] [employer] 06-07-2022 11:39-0500 Systolic blood pressure 90 mm[Hg] David Chen MD Work Phone: [facility] [employer] 04-27-2022 08:00-0500 Body height 188 cm Joiner Echo/Stress [facility] [employer] 04-27-2022 08:00-0500 Body mass index (BMI) [Ratio] 36.98 kg/m2 [employer] Echo/Stress [facility] [employer] 04-27-2022 08:00-0500 Body weight 130.64 kg [employer] Echo/Stress [facility] [employer] 05-06-2019 23:30-0500 Diastolic blood pressure 54 mm[Hg] Barry Guadalupe MD Work Phone: [facility] Work Phone: 05-06-2019 23:30-0500 Heart rate 67 /min Barry Guadalupe MD Work Phone: [facility] Work Phone: 05-06-2019 23:30-0500 Respiratory rate 20 /min Barry Guadalupe MD Work Phone: [facility] Work Phone: 05-06-2019 23:30-0500 Systolic blood pressure 115 mm[Hg] Barry Guadalupe MD Work Phone: [facility] Work Phone: 05-06-2019 22:30-0500 SaO2% (BldA) [Mass fraction] 93 % Barry Guadalupe MD Work Phone: [facility] Work Phone: 05-06-2019 20:05-0500 Body temperature 98.2 [degF] Barry Guadalupe MD Work Phone: [facility] Work Phone: 04-12-2019 17:10-0500 Diastolic blood pressure 65 mm[Hg] James Begum MD Work Phone: [facility] Work Phone: 04-12-2019 17:10-0500 Heart rate 65 /min James Begum MD Work Phone: [facility] Work Phone: 04-12-2019 17:10-0500 Respiratory rate 18 /min James Begum MD Work Phone: [facility] Work Phone: 04-12-2019 17:10-0500 SaO2% (BldA) [Mass fraction] 99 % James Begum MD Work Phone: [facility] Work Phone: 04-12-2019 17:10-0500 Systolic blood pressure 132 mm[Hg] James Begum MD Work Phone: [facility] Work Phone: 04-12-2019 15:42-0500 Body height 188 cm James Begum MD Work Phone: [facility] Work Phone: 04-12-2019 15:42-0500 Body mass index (BMI) [Ratio] 37.75 kg/m2 James Begum MD Work Phone: [facility] Work Phone: 04-12-2019 15:42-0500 Body temperature 98.01 [degF] James Begum MD Work Phone: [facility] Work Phone: 04-12-2019 15:42-0500 Body weight 133.36 kg James Begum MD Work Phone: 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 (Primary Dx); Mixed hyperlipidemia Start: 01-27-2025 End: 01-27-2025 ambulatory OTFRIED [facility] Start: 01-27-2025 End: 01-27-2025 Telephone encounter Pepe Marino MD Work Phone: [facility] Start: 01-21-2025 ambulatory Chelle GARCIA Facil ity:[facility] Start: 01-16-2025 ambulatory Chelle GARCIA Facil ity:[facility] Start: 01-14-2025 End: 01-16-2025 Telephone encounter Pepe Marino MD Work Phone: [facility] Comment on above: Care Management Start: 01-14-2025 End: 01-14-2025 Office outpatient visit 25 minutes Pepe Marino MD Work Phone: [facility] Urology [facility] Comment on above: Recurrent UTI (Prima ry Dx); Urge incontinence; Elevated PSA; BPH with lower urinary tract symptoms without urinary obstruction; Retention of urine, unspecified Start: 01-14-2025 End: 01-14-2025 ambulatory PEPE MARINO [facility] Start: 12-23-2024 ambulatory Chelle GARCIA Facil ity:[facility] Start: 11-07-2024 Visit out of hours Chema Valle MD Work Phone: [employer] Work Phone: Start: 11-05-2024 In-person encounter Chema mayer MD Work Phone: [facility] Work Phone: Start: 10-24-2024 ambulatory Chelle GARCIA Facil ity:[facility] Start: 10-24-2024 Registered Referred Chelle Troncoso -Prieto ltmaurice [facility] - [address] Start: 10-06-2024 ambulatory Chelle GARCIA Facil ity:[facility] Start: 10-06-2024 Registered Referred Chelle Troncoso -Prieto ltginoare C[facility] - [address] Start: 09-30-2024 End: 09-30-2024 Departed Referred Chelle Troncoso -[facility] - [address] Start: 09-30-2024 End: 09-30-2024 ambulatory Chelle GARCIA -[facility] - [address] Start: 09-25-2024 End: 09-25-2024 ambulatory Chelle GARCIA -[employer] [facility] - [address] Start: 09-25-2024 End: 09-25-2024 Departed Referred Chelle Troncoso -Sj Nancy - [address] Start: 09-25-2024 Registered Referred Chelle Pwoell ltginoare Nancy - [address] Start: 09-25-2024 End: 09-25-2024 ambulatory Chelle GARCIA Facility:[facility] Start: 09-23-2024 ambulatory Chelle GARCIA Facil ity:[facility] Start: 09-23-2024 Registered Referred Chelle Troncoso Sherry pepe Cruz - [address] Start: 07-15-2024 End: 07-17-2024 Evaluation and management of inpatient Amanuel Parisi MD Work Phone: [facility] Medical Surgical Unit MSU 4S Comment on above: Hematemesis (Primary Dx); Coffee ground emesis Start: 07-01-2024 End: 07-01-2024 ambulatory Chelle Thea OLS [facility] Work Phone: Start: 07-01-2024 End: 07-01-2024 Departed Referred Chelle CarrascoRubiagarrett Cruz - [address] Start: 07-01-2024 End: 07-01-2024 ambulatory Chelle Thea GARCIA Facility:[facility] Start: 06-27-2024 End: 06-27-2024 Patient encounter procedure Pepe Marino MD Work Phone: [facility] [place] Comment on above: BPH with lower urina ry tract symptoms without urinary obstruction; Urge incontinence; Elevated PSA; Gross hematuria Start: 06-27-2024 End: 06-27-2024 ambulatory Chasqui Bus [facility] [employer] [facility] Start: 06-02-2024 End: 06-02-2024 Telephone encounter Emmy Ramirez MD Work Phone: [facility] and [facility] Start: 05-30-2024 End: 06-04-2024 Evaluation and management of inpatient Arsh Mar MD Work Phone: [facility] Cardiac Progressive Care Unit PCU 2E Comment on above: Acute hypercapnic re spiratory failure (HCC) (Primary Dx); Hypercapnia; Hypoxia Start: 05-22-2024 End: 05-22-2024 Subsequent hospital visit by physician Pepe Marino MD Work Phone: [facility] Comment on above: Recurrent UTI Start: 05-22-2024 End: 05-22-2024 ambulatory [facility] Start: 05-14-2024 ambulatory Chelle Dyercarolann GARCIA Facil ity:[facility] Start: 05-14-2024 Registered Referred Chelle Theacarolann Cruz - [address] Start: 05-13-2024 End: 05-13-2024 ambulatory PEPE MARINO [facility] Start: 05-13-2024 End: 05-13-2024 Office outpatient new 45 minutes Pepe Marino MD Work Phone: [facility] Comment on above: Elevated PSA (Primar y Dx); BPH with lower urinary tract symptoms without urinary obstruction; Urge incontinence; Gross hematuria; Recurrent UTI; Retention of urine, unspecified Start: 05-02-2024 End: 05-02-2024 Telephone encounter Pepe Marino MD Work Phone: [facility] Start: 04-01-2024 End: 04-01-2024 Departed Referred Chelle Cruz - [address] Start: 04-01-2024 End: 04-01-2024 ambulatory Chelle GARCIA Facility:[facility] Start: 03-26-2024 End: 03-26-2024 Departed Referred Chelle Cruz - [address] Start: 03-26-2024 End: 03-26-2024 ambulatory Chelle GARCIA Facility:[facility] Start: 03-08-2024 End: 03-08-2024 ambulatory [facility] Start: 03-08-2024 End: 03-08-2024 Office outpatient visit 25 minutes Che Alegria APRN - SEISMIC PROSPECTING SUPERVISOR Work Phone: [facility] Cardiology [facility] Comment on above: Coronary artery dise ase involving coronary bypass graft of [place] heart without angina pectoris (Primary Dx); Chest pain, unspecified type; Mixed hyperlipidemia Start: 03-08-2024 End: 03-08-2024 ambulatory [facility] Start: 11-29-2023 End: 11-29-2023 Subsequent hospital visit by physician [facility] Exam Room [address] [facility] [address] Comment on above: Arrived Start: 11-29-2023 End: 12-05-2023 Evaluation and management of inpatient Bette Arreola DO Work Phone: [facility] Cardiac Post Intervention Progressive Care Unit CPI PCU 4W Comment on above: Closed head injury, initial encounter (Primary Dx); Fall, initial encounter; Pain in both knees, unspecified chronicity Start: 09-14-2023 End: 09-14-2023 Patient encounter procedure Rony Arriaza DMD, MD Work Phone: [facility] Oral Surgery Comment on above: Chronic dental liana s extending to pulp (Primary Dx) Start: 09-14-2023 ambulatory [facility]KNOWN PROVIDER [facility] Start: 09-05-2023 ambulatory KLEVER ÁLVAREZ Facility :[facility] Start: 09-05-2023 End: 09-05-2023 Patient encounter procedure Rony Arriaza DMD, MD Work Phone: [facility] Oral Surgery Comment on above: Caries (Primary Dx) Start: 08-21-2023 End: 08-21-2023 Office outpatient visit 25 minutes Otkillian Corcoran MD Work Phone: [facility] Cardiology Comment on above: CAD in northwestern [place]osh[place] artery ; Dyslipidemia Start: 07-14-2023 End: 07-14-2023 Subsequent hospital visit by physician Mingo Gavin ASSOCIATE PROFESSOR OF AUTOMATION - SEISMIC PROSPECTING SUPERVISOR Work Phone: [facility] Non-Invasive Cardiology Comment on above: Coronary artery dise ase involving [place]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; Stable angina pectoris Start: 07-13-2023 Documentation procedure Loretta oates RN [facility] Non-Invasive Cardiology Start: 07-13-2023 End: 07-13-2023 ambulatory [facility] Work Phone: Start: 07-13-2023 End: 07-13-2023 Departed Referred [facility] - [address] Start: 06-06-2023 End: 06-06-2023 ambulatory CHELLE TRONCOSO Facility:[facility] Start: 06-06-2023 End: 06-06-2023 Patient encounter procedure Marixa Stephens MD Work Phone: [facility] Comment on above: Type 2 diabetes ran itus without retinopathy (HCC) (Primary Dx); Nonexudative age-related macular degeneration, bilateral, early dry stage; Cataract, nuclear sclerotic, both eyes Start: 05-12-2023 End: 05-12-2023 Office outpatient visit 25 minutes Mingo Gavin APRN - SEISMIC PROSPECTING SUPERVISOR Work Phone: [facility] Cardiology Comment on above: Coronary artery dise ase involving [place]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 (Primary Dx); Stable angina pectoris Start: 05-02-2023 End: 05-02-2023 ambulatory [facility] Work Phone: Start: 05-02-2023 End: 05-02-2023 Departed Referred [facility] - [address] Start: 04-24-2023 Documentation procedure Loretta oates RN [facility] Non-Invasive Cardiology Start: 04-24-2023 Telephone encounter Indy esqueda PA-C Work Phone: [facility] Cardiology Start: 04-23-2023 End: 04-24-2023 Emergency department patient visit Bette Arreola Work Phone: [facility] Clinical Decision Unit CDU Comment on above: Chest pain, unspecif ied type (Primary Dx); Other chest pain Start: 02-22-2023 End: 02-22-2023 Office outpatient visit 25 minutes Suzy Corcoran MD Work Phone: [facility] Cardiology Comment on above: Coronary artery dise ase involving [place]western [place]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 (Primary Dx); Dyslipidemia Start: 12-13-2022 End: 12-13-2022 Office outpatient visit 40 minutes David Rodriguez MD Work Phone: [facility] General Surgery Comment on above: Functional diarrhea (Primary Dx) Start: 12-01-2022 End: 12-01-2022 [facility] Work Phone: Start: 12-01-2022 End: 12-01-2022 Departed Referred [facility] - [address] Start: 10-13-2022 End: 10-13-2022 ambulatory [facility] Work Phone: Start: 10-13-2022 End: 10-13-2022 Departed Referred [facility] - [address] Start: 10-12-2022 End: 10-12-2022 ambulatory [facility] Work Phone: Start: 10-12-2022 End: 10-12-2022 Departed Referred [facility] - [address] Start: 10-12-2022 Registered Referred [facility] - [address] Start: 07-18-2022 End: 07-18-2022 Subsequent hospital visit by physician Chelle Troncoso Work Phone: [facility] Comment on above: Irritable bowel synd sage with both constipation and diarrhea (Primary Dx); Anemia, unspecified; Mixed irritable bowel syndrome; Encounter for screening for malignant neoplasm of colon Start: 06-07-2022 End: 06-07-2022 Office outpatient new 45 minutes David Rodriguez MD Work Phone: [facility] General Surgery Comment on above: Irritable bowel synd sage with both constipation and diarrhea (Primary Dx) Start: 05-06-2022 End: 05-06-2022 Patient encounter procedure Wilma Grant OD Work Phone: [facility] Comment on above: Type 2 diabetes ran itus without retinopathy (HCC) (Primary Dx); Nonexudative age-related macular degeneration, bilateral, early dry stage; Cataract, nuclear sclerotic, both eyes; Papilloma of left upper eyelid; Tearing eyes Start: 04-27-2022 End: 04-27-2022 Subsequent hospital visit by physician Alicia Hansen Echo/Stress [facility] 1 Alicia Hansen Stress Comment on above: Coronary artery dise ase involving [place]western [place]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; Other congestive heart failure (HCC) Start: 05-06-2019 End: 05-06-2019 Emergency department patient visit Barry Guadalupe MD Work Phone: [facility] ED Comment on above: Hyperkalemia (Primar y Dx); Acute renal failure, unspecified acute renal failure type (HCC) Start: 05-01-2019 End: 05-01-2019 Subsequent hospital visit by physician Haydee Lai MD Work Phone: [facility] Start: 04-12-2019 End: 04-12-2019 Emergency department patient visit James Begum MD Work Phone: [facility] Comment on above: Acute exacerbation o f chronic low back pain (Primary Dx) Start: 08-09-2018 Patient encounter procedure Melquiades Gaming [facility] Start: 12-29-2017 Patient encounter Melquiades Colon [facility] Start: 12-17-2017 Emergency department patient visit Pedro Rincon [facility] Start: 11-03-2017 Emergency department patient visit UNKNOWN PROVIDER [facility] Start: 10-16-2017 Evaluation and management of inpatient Stacey Clemons [facility] Start: 10-13-2017 Patient encounter Stacey Clemons [facility] Start: 09-24-2017 Emergency department patient visit Willy Reeder [facility] Start: 08-07-2017 Evaluation and management of inpatient UNKNOWN PROVIDER [facility] Start: 09-28-2006 End: 09-28-2006 Patient encounter procedure Elin Munozmar Work Phone: [facility] Start: 09-28-2006 Results Only Elin Estefani [...] given Chema Hair MD Work Phone: Start: 07-24-2025 Pt scrnd tobacco use rcvd tobacco cessation talk Chema Hair MD Work Phone: Start: 10-24-2024 Urine culture Chelle Dyer carolann GARCIA Start: 10-24-2024 Urnls dip stick/tabl et reagent auto microscopy Chelle Ashbyeva GARCIA Start: 10-06-2024 Measurement of occul t [...] on above: Performed By: #### L [id number] ####Wall Steamer: CLARE SIMONS ([phone])[facility] BLOOD [facility] ([facility])[address] [place] [address] Start: 07-15-2024 Blood typing serologic abo Amanuel [...] 06-04-2024 Comprehensive metabo lic panel Krissy Murillo ASSOCIATE PROFESSOR OF AUTOMATION - SEISMIC PROSPECTING SUPERVISOR Work Phone: Start: 06-03-2024 Glucose quantitative blood xcpt reagent strip Manjinder Sanchez MD Work Phone: Start: 06-03-2024 Glucose quantitative blood xcpt reagent strip Manjinder Sanchez MD Work Phone: Start: 06-03-2024 Glucose quantitative blood xcpt reagent strip Manjinder Sanchez MD Work Phone: Start: 06-03-2024 End: 06-03-2024 Comprehensive metabolic panel Krissy Murillo ASSOCIATE PROFESSOR OF AUTOMATION - SEISMIC PROSPECTING SUPERVISOR Work Phone: Start: 06-02-2024 Glucose quantitative blood xcpt reagent strip Manjinder Sanchez MD Work Phone: Start: 06-02-2024 OXYGEN THERAPY Jaymie Moreau Njus PA-C Work Phone: Start: 06-02-2024 Glucose quantitative blood xcpt reagent strip Manjinder Sanchez MD Work Phone: Start: 06-02-2024 Glucose quantitative blood xcpt reagent strip Manjinder Sanchez MD Work Phone: Start: 06-02-2024 Glucose quantitative blood xcpt reagent strip Manjinder Sanchez MD Work Phone: Start: 06-02-2024 OXYGEN THERAPY Jaymie Prieto Njus PA-C Work Phone: Start: 06-02-2024 OXYGEN THERAPY Jaymie Moreau Njus PA-C Work Phone: Start: 06-02-2024 Basic metabolic pane l calcium total Haydee Willis DO Work Phone: Start: 06-02-2024 Manual Differential panel - Blood Jaymie Moreau Njus PA-C Work Phone: Start: 06-01-2024 Glucose [...] ination ph pco2 po2 co2 hco3 Haydee [employer] Work Phone: Start: 05-30-2024 Iadna s aureus methi cillin resist amp probe tq Haydee [employer] Work Phone: Start: 05-30-2024 Glucose quantitative blood xcpt reagent strip Haydee [employer] Work Phone: Start: 05-30-2024 Assay of troponin [...] Nasopharynx by JOAN with non-probe detection Haydee [employer] Work Phone: Start: 05-30-2024 SARS-COV-2, FLU A/B, AND RSV COMBO Arsh Mar MD Work Phone: Start: 05-30-2024 Ecg routine ecg w/le ast 12 lds trcg only w/o i&r Arsh Mar MD Work Phone: Start: 05-13-2024 Urnls dip stick/tabl et rgnt auto w/o microscopy Pepe Marino MD Work Phone: Start: 03-08-2024 Ecg routine ecg w/le ast 12 lds trcg only w/o i&r Otfried Barron Corcoran MD Work Phone: Start: 12-05-2023 Glucose quantitative [...] 11-29-2023 End: 11-29-2023 Comprehensive metabolic panel Sergio G Riyaluis DO Work Phone: Start: 11-29-2023 Ecg routine ecg w/le ast 12 lds trcg only w/o i&r Sergio G Riyaluis DO Work Phone: Start: 11-29-2023 Ct cervical spine w/ o contrast material Bette Arreola DO Work Phone: Start: 11-29-2023 Ct head/brain w/o co ntrast material Bette Goff Maxine DO Work Phone: Start: 11-29-2023 Glucose quantitative blood xcpt reagent strip Bette Goff Lindaselvin DO Work Phone: Start: 09-14-2023 alveoloplasty in conjunction with extractions - four or more teeth or tooth spaces, per quadrant Jacqui Glass DDS Work Phone: Start: 09-14-2023 extraction, erupted tooth or exposed root (elevation and/or forceps removal) Jacqui Glass DDS Work Phone: Start: 09-06-2023 panoramic radiograph ic image Wayne Alonso DDS Work Phone: Start: 07-14-2023 TTE w or w/o contr, cont ECG Mingo Gavin ASSOCIATE PROFESSOR OF AUTOMATION - SEISMIC PROSPECTING SUPERVISOR Work Phone: Start: 04-24-2023 Glucose quantitative blood xcpt reagent strip Robbie Mckeon MD Work Phone: Start: 04-24-2023 Glucose quantitative blood xcpt reagent strip Bette Arreola DO Work Phone: Start: 04-24-2023 Ecg routine ecg w/le ast 12 lds trcg only w/o i&r Maya Girard ASSOCIATE PROFESSOR OF AUTOMATION - SEISMIC PROSPECTING SUPERVISOR Work Phone: Start: 04-24-2023 Comprehensive metabo lic panel Maya Girard ASSOCIATE PROFESSOR OF AUTOMATION - SEISMIC PROSPECTING SUPERVISOR Work Phone: Start: 04-24-2023 Lipid panel Maya Nayak ASSOCIATE PROFESSOR OF AUTOMATION - SEISMIC PROSPECTING SUPERVISOR Work Phone: Start: 04-24-2023 Lipid 1996 panel - S delano or Plasma Bette Arreola DO Work Phone: Start: 04-24-2023 Assay of troponin quantitative Bette Arreola DO Work Phone: Start: 04-23-2023 Radiologic exam ches t single view Bette Arreola DO Work Phone: Start: 04-23-2023 Basic metabolic pane l calcium total Bette Arreola DO Work Phone: Start: 04-23-2023 Ecg routine ecg w/le ast 12 lds trcg only w/o i&r Bette Arreola DO Work Phone: Start: 07-18-2022 Colonoscopy Chelle Gandhi ner Work Phone: Start: 05-06-2022 Computerized ophthal martita imaging retina Wilma Grant OD Work Phone: Start: 04-27-2022 TTE w or wo fol wcon,Doppler Otfried N Herberthmaier MD Work Phone: Start: 04-13-2022 Lipid 1996 [...] DTaP/Tdap/Td Vaccines (2 - Td or Tdap) [employer] Start: 07-18-2032 Screening for malignant neoplasm of colon [facility] Start: 05-23-2027 Colon cancer screen colonoscopy Colon cancer screen colonoscopy [facility] Work Phone: Start: 05-23-2027 Screening for malignant neoplasm of colon [employer] Start: 09-04-2025 Glaucoma screening Diabetes: Retinopathy Screening [facility] [employer] Start: 07-28-2025 Depression Monitoring Depression Monitoring [employer] Start: 07-17-2025 Creatinine measurement Creatinine Level [employer] Start: 07-17-2025 Diabetes: Estimated Glomerular Filtration Rate for Kidney Health Diabetes: Estimated Glomerular Filtration Rate for Kidney Health [employer] Start: 07-17-2025 Potassium measurement Potassium Level [employer] Start: 07-15-2025 Hemoglobin A1c measurement Diabetes: Hemoglobin A1C [employer] Start: 06-04-2025 Creatinine measurement Creatinine Level [employer] Start: 06-04-2025 Diabetes: Estimated Glomerular Filtration Rate for Kidney Health Diabetes: Estimated Glomerular Filtration Rate for Kidney Health [facility] [employer] Start: 06-04-2025 Potassium measurement Potassium Level [employer] Start: 06-02-2025 Creatinine measurement Creatinine Level [employer] Start: 06-02-2025 Diabetes: Estimated Glomerular Filtration Rate for Kidney Health Diabetes: Estimated Glomerular Filtration Rate for Kidney Health [facility] Start: 06-02-2025 Potassium measurement Potassium Level [facility] Start: 04-29-2025 End: 04-29-2025 Patient encounter procedure 04/29/2025 3:30 PM EST Office Visit [facility] Cardiology [facility] [address] [place] [id number] Indy Farrar PA-C [address] [place] [address] [facility] Start: 03-08-2025 Creatinine measurement Creatinine Level [facility] Start: 03-08-2025 Diabetes: Estimated Glomerular Filtration Rate for Kidney Health Diabetes: Estimated Glomerular Filtration Rate for Kidney Health [facility] Start: 03-08-2025 Potassium measurement Potassium Level [facility] Start: 02-27-2025 End: 02-27-2025 Patient encounter procedure 02/27/2025 3:30 PM EST [facility] [place] [address] [place] [id number] Pepe Marino MD [address] [place] [address] [facility] [place] Start: 02-27-2025 Glaucoma screening Diabetes: Retinopathy Screening [facility] Start: 02-07-2025 End: 02-07-2025 Patient encounter procedure 02/07/2025 11:50 AM EDT [facility] [place] [address] [place] [id number] Pepe Marino MD [address] [place] [address] [facility] [place] Start: 01-28-2025 End: 01-28-2025 Patient encounter procedure 01/28/2025 1:00 PM EDT [facility] [address] [place] [phone] [facility] Start: 01-27-2025 End: 01-27-2025 Patient encounter procedure 01/27/2025 2:30 PM EDT Office Visit [facility] Cardiology - [place] [address] [place] [phone] Suzy Corcoran MD [address] [place] [address] [place] [address] [facility] - [place] Start: 01-27-2025 End: 01-27-2026 Lipid 1996 panel - Serum or Plasma Lipid panel Lab Routine Mixed hyperlipidemia Expected: 01/27/2025 (Approximate), Expires: [facility]27[facility]2026 [facility]: Comment on above: Expected: 01/27/2025 (Approximate), Expi res: 01/27/2026 Start: 01-20-2025 End: 02-03-2025 Bacteria identified in Urine by Culture Urine culture Microbiology Routine Recurrent UTI Expected: 01/20/2025 (Approximate), Expires: 02/03/2025 [employer] Work Phone: Comment on above: Expected: 01/20/2025 (Approximate), Expi res: 02/03/2025 Start: 01-14-2025 End: 01-14-2026 Bacteria identified in Urine by Culture Urine culture Microbiology Routine Recurrent UTI Expected: 01/14/2025 (Approximate), Expires: 01/14/2026 [employer] Work Phone: Comment on above: Expected: 01/14/2025 (Approximate), Expi res: 01/14/2026 Start: 12-16-2024 COVID-19 Vaccine ( season) COVID-19 Vaccine ( season) [facility] [employer] Start: 12-16-2024 Influenza vaccination [facility] [employer] Start: 12-04-2024 Creatinine measurement Creatinine Level [facility] [employer] Start: 12-04-2024 Diabetes: Estimated Glomerular Filtration Rate for Kidney Health Diabetes: Estimated Glomerular Filtration Rate for Kidney Health [facility] [employer] Start: 12-04-2024 Potassium measurement Potassium Level [facility] Start: 12-01-2024 Glaucoma screening Diabetes: Retinopathy Screening [facility] Start: 11-30-2024 Creatinine measurement Creatinine Level [facility] Start: 11-30-2024 Diabetes: Estimated Glomerular Filtration Rate for Kidney Health Diabetes: Estimated Glomerular Filtration Rate for Kidney Health [facility] Start: 11-30-2024 Potassium measurement Potassium Level [facility] Start: 11-29-2024 Echocardiography Echocardiogram [facility] Start: 11-29-2024 Hemoglobin A1c measurement Diabetes: Hemoglobin A1C [facility] Start: 11-29-2024 Lipid panel Lipid Panel [facility] Start: 09-27-2024 End: 09-27-2024 Patient encounter procedure 09/27/2024 10:30 AM EDT Office Visit [facility] U[facility] - [place] [address] [place] [address] Pepe Marino MD [address] [place] [address] [facility] [place] Start: 08-05-2024 End: 08-05-2024 Patient encounter procedure 08/05/2024 10:00 AM EDT Office Visit [facility] Cardiology - [place] [address] [place] [address] Suzy Corcoran MD [address] [place] [address] [facility] [place] Start: 07-31-2024 End: 07-31-2024 Patient encounter procedure 07/31/2024 1:40 PM EDT Office Visit [facility] Pulmonary and Sleep Medicine [facility] [address] [place] [address] Viki Ball APRN [facility] [address] [place] [address] [facility] Pulmonary and Sleep Medicine [facility] Start: 06-27-2024 End: 12-28-2024 PSA, Monitoring (Quest) PSA, Monitoring (Quest) Lab Routine Elevated PSA Expected: 06/27/2024 (Approximate), Expires: 12/28/2024 [facility] Work [facility]: Comment on above: Expected: 06/27/2024 (Approximate), Expi res: 12/28/2024 Start: 06-27-2024 End: 06-27-2024 Patient encounter procedure 06/27/2024 11:20 AM EDT Procedure Visit [facility] Urology - [place] [address] [place] [address] Pepe Marino MD [address] [place], [place] [id number] [facility] [place] Start: 06-19-2024 End: 06-19-2024 Patient encounter procedure 06/19/2024 11:40 AM EST Office Visit [facility] Pulmonary and Sleep Medicine [facility] [address] [place] [address] Viki Ball APRN - [facility] [address] [place] [id number] [facility] Pulmonary [facility] Sleep Medicine [facility] Start: 06-06-2024 Glaucoma screening Dilated Retinal Exam [facility] Start: 06-04-2024 End: 06-04-2025 Nasal Cannula- Oxygen Therapy Nasal Cannula- Oxygen Therapy Respiratory Care Routine Acute hypercapnic respiratory failure (HCC) Expected: 06/04/2024 (Approximate), Expires: 06/04/2025 [facility] Work Phone: Comment on above: Expected: 06/04/2024 (Approximate), Expi res: 06/04/2025 Start: 05-13-2024 End: 11-10-2024 PSA, Monitoring ([facility]) PSA, Monitoring ([facility]) Lab Routine Elevated PSA Expected: 05/13/2024 (Approximate), Expires: 11/10/2024 [facility] Work [facility]: Comment on above: Expected: 05/13/2024 (Approximate), Expi res: 11/10/2024 Start: 05-13-2024 End: 01-27-2026 XR Abdomen Single view XR abdomen 1 view Imaging Routine Recurrent UTI Expected: 05/13/2024, Expires: 05/13/2025 [facility] Comment on above: Expected: 05/13/2024, Expires: Start: 05-13-2024 End: 05-13-2024 Patient encounter procedure 05/13/2024 1:00 PM EST Office Visit [facility] [place] [address] [place] [address] Pepe Marino MD [address] [place] [address] [facility] [place] Start: 04-24-2024 Creatinine measurement [facility] Start: 04-24-2024 Hepatitis B surface antibody level LDL Cholesterol [facility] Start: 04-24-2024 Lipid panel [facility] Start: 04-24-2024 Potassium measurement Potassium Level [facility] Start: 02-21-2024 End: 02-21-2024 Patient encounter procedure 02/21/2024 10:00 AM EST Office Visit [facility] Cardiology [address] [place] [address] Che Alegria, ASSOCIATE PROFESSOR OF AUTOMATION - SEISMIC PROSPECTING SUPERVISOR [address] [place] [address] [facility] Cardiology Start: 01-13-2024 Hemoglobin A1c measurement Hemoglobin A1C [facility] Start: 12-17-2023 COVID-19 Vaccine ( season) COVID-19 Vaccine ( season) [facility] Start: 12-17-2023 Influenza vaccination [facility] Start: 12-02-2023 Glaucoma screening [facility] Start: 08-21-2023 End: 08-21-2023 Patient encounter procedure [facility] Cardiology Start: 07-14-2023 End: 07-14-2023 Patient encounter procedure 07/14/2023 11:00 AM EDT Appointment [facility] Non-Invasive Cardiology [address] [place] [phone] Mingo Gavin, ASSOCIATE PROFESSOR OF AUTOMATION - SEISMIC PROSPECTING SUPERVISOR [address] [place] [address] [facility] Non-Invasive Cardiology Start: 05-12-2023 End: 05-12-2025 Stress echocardiogram (TTE) dobutamine with contrast, bubble, strain, and 3D PRN order panel Stress echocardiogram (TTE) dobutamine with contrast, bubble, strain, and 3D PRN order panel CV Stress Echocardiography Routine Coronary artery disease involving [place]western [place]osh[place]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 Stable angina pectoris Expected: 05/12/2023 (Approximate), Expires: 05/12/2025 [facility] [employer] [facility] Work Phone: Comment on above: Expected: 05/12/2023 (Approximate), Expi res: 05/12/2025 Start: 05-12-2023 End: 05-12-2023 Patient encounter procedure 05/12/2023 10:00 AM EST Office Visit [facility] Cardiology [address] [place] [phone] Mingo Gavin, ASSOCIATE PROFESSOR OF AUTOMATION - SEISMIC PROSPECTING SUPERVISOR [address] [place] [address] [facility] Cardiology Start: 05-06-2023 Hepatitis C antibody, confirmatory test DILATED RETINAL EXAM [facility] Start: 05-05-2023 End: 05-05-2023 Patient encounter procedure 05/05/2023 11:30 AM EST Office Visit [facility] Cardiology [address] [place] [phone] Miranda Griffin, ASSOCIATE PROFESSOR OF AUTOMATION - SEISMIC PROSPECTING SUPERVISOR [address] [address] [facility]iology Start: 05-05-2023 End: 05-05-2023 Patient encounter procedure 05/05/2023 8:30 AM EST Office Visit [facility] Cardiology [address] [place] [phone] Mingo Gavin, ASSOCIATE PROFESSOR OF AUTOMATION - SEISMIC PROSPECTING SUPERVISOR [address] [place] [address] [facility]iology Start: 04-27-2023 Echocardiography Echocardiogram [facility] Start: 04-17-2023 Advance Directive Discussion Advance Directive Discussion [facility] Start: 04-17-2023 Depression Assessment Depression Assessment [facility] Start: 04-13-2023 Creatinine measurement Creatinine Level [facility] Start: 04-13-2023 Lipid panel Lipid Panel [facility] Start: 04-13-2023 Potassium measurement Potassium Level [facility] Start: 02-27-2023 End: 02-27-2023 Patient encounter procedure 02/27/2023 10:30 AM EST Office Visit [facility] Cardiology [address] [place] [phone] Suzy Corcoran MD [address] [facility] [address] [place], [place] [id number] [facility] Start: 12-16-2022 COVID-19 Vaccine ( season) COVID-19 Vaccine ( season) [facility] Start: 12-16-2022 COVID-19 Vaccine ( season) COVID-19 Vaccine ( season) [facility] Start: 12-16-2022 COVID-19 Vaccine ( season) COVID-19 Vaccine ( season) [facility] Start: 12-16-2022 Influenza vaccination [facility] Start: 08-05-2022 End: 08-05-2022 Patient encounter procedure 08/05/2022 Office Visit Cardiology Mingo Gavin, ASSOCIATE PROFESSOR OF AUTOMATION - SEISMIC PROSPECTING SUPERVISOR [address] [place] [address] [facility] Start: 07-18-2022 End: 07-18-2022 Colonoscopy [...] procedure 07/15/2022 Office Visit Cardiology Mingo Gavin, ASSOCIATE PROFESSOR OF AUTOMATION - SEISMIC PROSPECTING SUPERVISOR [address] [place] [address] [facility] Start: 06-29-2022 COVID-19 Vaccine (7 - Pfizer series) COVID-19 Vaccine (7 - Pfizer series) [facility] Start: 04-17-2022 ADVANCE DIRECTIVE DISCUSSION ADVANCE DIRECTIVE DISCUSSION [facility] Start: 04-17-2022 DEPRESSION ASSESSMENT DEPRESSION ASSESSMENT [facility] Start: 12-16-2021 Influenza vaccination [facility] Start: 12-17-2019 Influenza vaccination INFLUENZA (#1) [facility] Start: 08-14-2019 End: 08-14-2019 Patient encounter procedure 08/14/2019 Office Visit Urology Wilma Powell PA-C [address] [facility] [address] [place] [address] [phone] [facility] Start: 12-17-2018 Creatinine monitoring Creatinine monitoring [facility] Work Phone: Start: 12-17-2018 Potassium monitoring Potassium monitoring [facility] Work Phone: Start: 12-16-2018 Influenza vaccination Flu vaccine (#1) [facility] Work Phone: Start: 10-19-2018 A1C test (Diabetic or Prediabetic) A1C test (Diabetic or Prediabetic) [facility] Work Phone: Start: 09-24-[address] lung screening Low dose CT lung screening [facility] Work Phone: Start: 04-22-2018 Hemoglobin A1c measurement HbA1C [facility] Start: 09-01-2017 Diabetes: Urine Albumin-Creatinine Ratio for Kidney Health Diabetes: Urine Albumin-Creatinine Ratio for Kidney Health [facility] Start: 09-01-2017 Diabetic microalbuminuria test Diabetic microalbuminuria test [facility] Work Phone: Start: 06-07-2017 Hemoglobin A1c/Hemoglobin.total in Blood HBA1C [facility] Start: 05-10-[address] [facility] Work Phone: Start: 10-04-2016 3 comp foot exam completed Diabetic foot exam [facility] Work Phone: Start: 2016 Hepatitis B (HBV) Vaccine (optional start 60+ years) Hepatitis B (HBV) Vaccine (optional start 60+ years) [facility] Start: 2016 Hepatitis B Vaccines (1 of 3 - Risk 3-dose series) Hepatitis B Vaccines (1 of 3 - Risk 3-dose series) [facility] Start: 2016 RSV Immunization aged 60 or older (1 - 1-dose 60+ series) RSV Immunization aged 60 or older (1 - 1-dose 60+ series) [facility] Start: 2016 RSV Immunization for Adults (1 - Risk 60-74 years 1-dose series) RSV Immunization for Adults (1 - Risk 60-74 years 1-dose series) [facility] Start: 2016 RSV Vaccine (1 - 1-dose 60+ series) RSV Vaccine (1 - 1-dose 60+ series) [facility] Start: 2016 RSV vaccine (optional 60+ years) RSV vaccine (optional 60+ years) [facility] Start: 02-16-2016 Pneumococcal Vaccine: 50+ Years (2 of 2 - PCV) Pneumococcal Vaccine: 50+ Years (2 of 2 - PCV) [facility] Start: 02-16-2016 Pneumococcal Vaccine: 65+ Years (2 - PCV) Pneumococcal Vaccine: 65+ Years (2 - PCV) [facility] Start: 02-16-2016 Pneumococcal Vaccine: 65+ Years (2 of 2 - PCV) Pneumococcal Vaccine: 65+ Years (2 of 2 - PCV) [facility] Start: 09-20-2014 Pneumococcal Vaccine: 65+ (2 of 2 - PCV) Pneumococcal Vaccine: 65+ (2 of 2 - PCV) [facility] Start: 10-04-2011 PROSTATE CANCER SCREENING DISCUSSION PROSTATE CANCER SCREENING DISCUSSION [facility] Start: 10-04-2011 Prostate specific antigen measurement Prostate Cancer Screening Discussion [facility] Start: 2006 Screening for malignant neoplasm of lung Lung Cancer Screening [facility] Start: 2006 Shingles (RZV) Vaccine (1 of 2) Shingles (RZV) Vaccine (1 of 2) [facility] Start: 2006 Shingles Vaccine (1 of 2) Shingles Vaccine (1 of 2) [facility] Work Phone: Start: 2006 SHINGRIX VACCINE (1 of 2) SHINGRIX VACCINE (1 of 2) [facility] Start: 2006 Tuberculosis screening COLORECTAL CANCER SCREENING,SEE MODIFIER [facility] Start: 2006 Zoster Vaccines (1 of 2) Zoster Vaccines (1 of 2) [facility] Start: 2001 COLOGUARD (FIT-DNA) COLOGUARD (FIT-DNA) [facility] Start: 2001 Colonoscopy COLONOSCOPY [facility] Start: 2001 COLORECTAL CANCER SCREENING COLORECTAL CANCER SCREENING [facility] Start: [address] COLONOGRAPHY [facility] Start: 2001 DIABETES SCREEN DIABETES SCREEN [facility] Start: 2001 FECAL OCCULT BLOOD FECAL OCCULT BLOOD [facility] Start: 2001 Screening for malignant neoplasm of colon [facility] Start: 2001 SIGMOIDOSCOPY SIGMOIDOSCOPY [facility] Start: 10-04-1991 LIPID SCREEN LIPID SCREEN [facility] Start: 1986 Zoledronic acid therapy ALPHA-1 ANTITRYPSIN DEFICIENCY SCREENING [facility] Start: 10-04-1975 DTaP/Tdap/Td Vaccines (1 - Tdap) DTaP/Tdap/Td Vaccines (1 - Tdap) [facility] Start: 10-04-1975 Hepatitis A (HAV) Vaccine (optional start 19+ years) Hepatitis A (HAV) Vaccine (optional start 19+ years) [facility] Start: 10-04-1975 Pneumococcal Vaccine: 50+ Years (1 of 2 - PCV) Pneumococcal Vaccine: 50+ Years (1 of 2 - PCV) [facility] Start: 10-04-1975 Urine microalbumin profile [facility] Start: 10-04-1975 Urine screening for protein Diabetes: Urine Protein Screening [facility] Start: 1974 ANNUAL PCP TEAM CHRONIC DISEASE VISIT ANNUAL PCP TEAM CHRONIC DISEASE VISIT [facility] Start: 1974 Diabetes: Urine Albumin-Creatinine Ratio for Kidney Health Diabetes: Urine Albumin-Creatinine Ratio for Kidney Health [facility] Start: 1974 Hepatitis B surface antibody level LDL CHOLESTEROL [facility] Start: 1974 HEPATITIS C SCREENING HEPATITIS C SCREENING [facility] Start: 1974 Hepatitis C screening [facility] Start: 1974 HIV SCREENING HIV SCREENING [facility] Start: 1974 SPIROMETRY SPIROMETRY [facility] Start: 1974 Tetanus + diphtheria + acellular pertussis vaccine (product) Tdap Booster [facility] Start: 10-04-1971 HIV screen HIV screen [facility] Work Phone: Start: 1968 Depression Monitoring Depression Monitoring [facility] Start: 1968 Depression Screening Depression Screening [facility] Start: 10-04-1967 DTaP/Tdap/Td vaccine (1 - Tdap) DTaP/Tdap/Td vaccine (1 - Tdap) [facility] Work Phone: Start: 1966 3 comp foot exam completed DIABETIC FOOT EXAM [facility] Start: 1966 Diabetic foot examination [facility] Start: 1966 Diabetic retinal exam Diabetic retinal exam [facility] Work Phone: Start: 1966 Glaucoma screening Diabetes: Retinopathy Screening [facility] Start: 1966 Hepatitis B screening URINE ALBUMIN:CREATININE RATIO [facility] Start: 1966 Preventive dental service Diabetes: Dental Exam [facility] Start: 1962 Pneumococcal 0-64 years Vaccine (1 of 1 - PPSV23) Pneumococcal 0-64 years Vaccine (1 of 1 - PPSV23) [facility] Work Phone: Start: 1962 Pneumococcal vaccination Pneumococcal Vaccine(s) (65+ yrs) (1 of 2 - PCV) [facility] Start: 1962 Pneumococcal Vaccine: 65+ Years (1 - PCV) Pneumococcal Vaccine: 65+ Years (1 - PCV) [facility] Start: 1962 Pneumococcal Vaccine: 65+ Years (1 of 2 - PCV) Pneumococcal Vaccine: 65+ Years (1 of 2 - PCV) [facility] Start: 1962 PNEUMOCOCCAL: 65+ (1 - PCV) PNEUMOCOCCAL: 65+ (1 - PCV) [facility] Start: 1956 Urine screening for protein Microalbumin [facility] Start: 1956 ABDOMINAL AORTIC ANEURYSM SCREENING ABDOMINAL AORTIC ANEURYSM SCREENING [facility] Start: 1956 Abdominal aortic aneurysm screening Abdominal Aortic Aneurysm Screening [facility] Start: 1956 Annual wellness visit Medicare Initial Physical (IPPE) [facility] Start: 1956 Diabetic foot examination Foot Exam [facility] Start: 1956 Hemoglobin A1c measurement Diabetes: Hemoglobin A1C [facility] Start: 1956 Hepatitis B Vaccines (1 of 3 - 3-dose series) Hepatitis B Vaccines (1 of 3 - 3-dose series) [facility] Start: 1956 Pulmonary Function Testing Pulmonary Function Testing [facility] Start: 1956 Screening for malignant neoplasm of colon [facility] End: 06-02-2024 Bacteria identified in Lower respiratory specimen by Aerobe culture Respiratory culture and Stain Microbiology Routine Once (Lab) for 1 Occurrences starting 06/02/2024 until 06/02/2024 [facility] Work Phone: Comment on above: Once (Lab) for 1 Occurrences starting until 06/02/2024 Bacteria identified in Urine by Culture Urine culture Microbiology Routine 12/03/2023 11:23 PM EDT [facility] Work Phone: ECG 12 lead ECG 12 lead CV E CG Routine 04/24/2023 7:14 AM EST [employer] Work Phone: ECG 12 lead - CLINIC PERFORMED E CG 12 lead - CLINIC PERFORMED CV ECG Routine Chest pain, unspecified type 03/08/2024 9:24 AM EST [employer] Work Phone: EKG 12 Lead [facility] Work Phone: End: 05-30-2024 Legionella and Streptococcus Urine Antigen [facility] [employer] Work Phone: Comment on above: Once (Lab) for 1 Occurrences starting until 05/30/2024 Tissue exam Tissue exam Path ology and Cytology Timed Anemia, unspecified Mixed irritable bowel syndrome Encounter for screening for malignant neoplasm of colon Release Upon Ordering for 1 Occurrences starting 07/18/2022 [employer] Work Phone: Comment on above: Release Upon Ordering for 1 Occurrences starting 07/18/2022 Tissue exam [facility] Work Phone: Comment on above: Release Upon Ordering for 1 Occurrences starting 07/16/2024, 1 completed End: 05-30-2024 Urine Hold Cup Urine Hold Cup Lab Timed Once for 1 Occurrences starting 05/30/2024 until 05/30/2024 [facility] Comment on above: Once for 1 Occurrences starting 05/30/19 until 05/30/2024 End: 05-22-2024 US Retroperitoneum [facility] Work Phone: Comment on above: Once for 1 Occurrences starting 05/22/19 until 05/22/2024 Immunizations Immunization Date Immunization Notes Care Provider Fa [facility] 11-29-2023 tetanus toxoid, reduced diphtheria toxoid, and acellular pertussis vaccine, adsorbed [facility] 1 [facility] 07-13-2023 Hemoglobin A1C Rony Macdonald i, DMD, MD Work Phone: [facility] 03-01-2022 Pfizer Bivalent (12+ YRS) SARS-COV-2 (COVID-19) vaccine, mRNA, spike protein, LNP, pres. free, 30 mcg/0.3mL dose, jose maria-sucrose (VSQ=167) Rony Arriaza DMD, MD Work Phone: [facility] 03-01-2022 Pfizer Monovalent (1 2+ yrs) SARS-COV-2 (COVID-19) vaccine, mRNA, spike protein, LNP, pres. free, 30 mcg/0.3mL dose (GSE=126) Rony Arriaza DMD, MD Work Phone: [facility] 02-04-2022 influenza, injectabl e, quadrivalent, contains preservative Rony Arriaza DMD, MD Work Phone: [facility] 02-04-2022 influenza virus vaccine, unspecified formulation David Chen MD Work Phone: [facility] 09-01-2021 Pfizer Monovalent (1 2+ yrs) SARS-COV-2 (COVID-19) vaccine, mRNA, spike protein, LNP, pres. free, 30 mcg/0.3mL dose (QXW=572) Rony Arriaza DMD, MD Work Phone: [facility] 09-01-2021 Pfizer Monovalent (1 2+ yrs) SARS-COV-2 (COVID-19) vaccine, mRNA, spike protein, LNP, pres. free, 30 mcg/0.3mL dose, jose maria-sucrose (PED=800) Rony Arriaza DMD, MD Work Phone: [facility] 02-02-2021 Moderna Monovalent (12+ yrs) COVID-19 vaccine, mRNA, spike protein, LNP, PF, 100 mcg/0.5 mL (MWM=901) Rony Arriaza DMD, MD Work Phone: [facility] 02-02-2021 Pfizer Monovalent (1 2+ yrs) SARS-COV-2 (COVID-19) vaccine, mRNA, spike protein, LNP, pres. free, 30 mcg/0.3mL dose (CIO=029) Rony Arriaza DMD, MD Work Phone: [facility] 01-26-2021 influenza, injectabl e, quadrivalent, contains preservative Rony Arriaza DMD, MD Work Phone: [facility] 01-04-2017 influenza, high dose seasonal, preservative-free James Begum MD Work Phone: [facility] Work Phone: 01-04-2017 influenza virus vaccine, unspecified formulation [place] Echo/Stress [facility] 01-08-2015 influenza virus vaccine, unspecified formulation James Begum MD Work Phone: [facility] 01-08-2014 influenza, seasonal, injectable Rony Arriaza DMD, MD Work Phone: [facility] 09-20-2013 pneumococcal Conjugate, unspecified formulation James Begum MD Work Phone: [facility] 01-27-2010 influenza virus vaccine, whole virus Rony Arriaza DMD, MD Work Phone: [facility] Payers Date Payer Category Payer Self-pay 2018 Medicaid 2018 [place] xxxxxxxxxxxx 2018-Present [phone] [address] [place] [address] xxxxxxxxxxxx [id number] 2018 Medicaid [id number] 1956 Unknown [id number] [id number]. 1956 Unknown [id number] 2.16.840.1.221004.3.579.2. 1956 Unknown [id number] 2.16.840.1.164036.3.579.2. 1956 Unknown [id number] 2.16.840.1.826550.3.579.2. 1956 Unknown [id number] 2.16.840.1.542448.3.579.2. 1956 Unknown [id number] 2.16.840.1.752473.3.579.2. 1956 Unknown [id number] 2.16.840.1.449524.3.579.2. 1956 Unknown [id number] 2.16.840.1.422037.3.579.2.8 1956 Unknown [id number] 2.16.840.1.900902.3.579.2.732 1956 Unknown [id number] 2.16.840.1.287401.3.579.2.732 Unknown Unknown [id number] 2.16.840.1.834525.3.579.2.462 Unknown [id number] 2.16.840.1.623481.3.579.2.462 Unknown [id number] 2.16.840.1.220323.3.579.2.462 Unknown [id number] 2.16.840.1.959757.3.579.2.462 Unknown [id number] 2.16.840.1.123104.3.579.2.462 Unknown [id number] 2.16.840.1.975599.3.579.2.462 Unknown [id number] 2.16.840.1.108136.3.579.2.462 Unknown [id number] 2.16.840.1.048416.3.579.2.462 Unknown [id number] 2.16.840.1.376008.3.579.2.462 Unknown [id number] 2.16.840.1.259107.3.579.2.462 Unknown [id number] 2.16.840.1.724039.3.579.2.462 Unknown [id number] 2.16.840.1.205994.3.579.2.462 Unknown [id number] 2.16.840.1.111799.3.579.2.462 Social History Date Type Detail Facility Tobacco smoking stat [facility] Unknown if ever smoked [facility] Start: 1955 Sex Assigned At Not on file [facility] [employer] Work Phone: Start: 04-28-1973 End: 11-29-2023 Tobacco smoking status [facility] Current every day smoker [facility] Start: 04-28-1973 History of tobacco use Cigarette Smo ker [facility] Start: 04-12-2019 End: 11-30-2023 Cigarettes smoked current (pack per day) - Reported [facility] Start: 04-12-2019 End: 01-27-2025 Alcohol intake Current non-drinker of alcohol (finding) [facility] Work Phone: Start: 01-26-2017 Alcohol Comment last drinking 1984 [facility] [employer] Work Phone: Start: 12-26-2016 End: 11-29-2023 Tobacco use and exposure Smokeless tobacco non-user [facility] Start: 04-03-2022 End: 12-13-2022 Exposure to SARS-CoV-2 (event) Not sure [facility] Start: 1955 Sex Assigned At Male [facility] Start: 09-02-2022 End: 11-30-2023 Tobacco use panel [facility] Within the last year , have you been afraid of your partner or ex-partner? No [facility] National Score (1-100), lower number is lower risk 79 [facility] Tobacco smoking stat us NHIS Tobacco smoking consumption unknown [facility] How often to you hav e a drink containing alcohol? Never [facility] Start: 11-15-2021 End: 07-23-2024 Sex Male (finding) [facility] Start: 11-05-2024 smoking/tobacco cessation, patient education and counseling Smoking cessation education (procedure) [employer] Work Phone: Medical Equipment Procedure Code Equipment Code Equipment Origin al Text Equipment Identifier Dates USE DIRECTED FOR INSULIN 4 TIMES DAILY [id number] Start: 01-23-2017 Functional Status Date Assessment Result Facility 01-27-2025 Patient Health Questionnaire 2 item (PHQ- 2) [Reported] [facility] Clinical Notes 04-12-2019 to 02-18-2025 Telephone Encounter - Taya Chatman RN - 02/18/2025 2:28 PM ESTTelephone Encounter - Taya Chatman RN - 02/18/2025 2:28 PM ESTTelephone Encounter - Nancy Tripathi - 02/11/2025 2:39 PM EDT Note Date & Type Note Facility 02-18-2025 Telephone encounter Note PC to facility, spoke with his nurse Barb. Stated that the patient is doing fine. Sometimes he decides to eat and sometimes he will not eat. Denies any cardiac symptoms. [facility] 02-18-2025 Miscellaneous Notes PC to [facility], spoke with his nurse Barb. Stated that the patient is doing fine. Sometimes he decides to eat and sometimes he will not eat. Denies any cardiac symptoms. Called SNF, stated the nurse was not picking up. Asked for me to call back. Weight is fluctuating a bit. Does he have HF? Not mentioned in recent office note. RN from [facility] called to report pt weight. RN states she is too call if weight gain or loss. 11/18-304 lbs 01/20 297 lbs 01/27 293 lbs 02/03- 298 lbs 02/11-296 lbs Please return her call if needed [phone] and ask for 100 Kirill RN documented in this encounter [facility] 02-14-2025 Telephone encounter Note Called SNF, stated the nurse was not picking up. Asked for me to call back. [facility] 02-11-2025 Telephone encounter Note Weight is fluctuating a bit. Does he have HF? Not mentioned in recent office note. [facility] Work Phone: 02-11-2025 Telephone encounter Note RN from [facility] called to report pt weight. RN states she is too call if weight gain or loss. 11/18-304 lbs 01/20 297 lbs 01/27 293 lbs 1020- 298 lbs 02/11-296 lbs Please return her call if needed [phone] and ask for 100 Kirill RN [facility] 01-27-2025 History of Present illness Narrative [facility] Cardiology [facility] - [address] [address] Dept: [phone] Dept Visit type: Established : 1955 DATE of SERVICE: 01/27/2025 Chief Complaint: Chief Complaint Patient presents with Follow-up History of Present Illness: James Reyes is a 69 y.o. male who presents today for routine follow-up regarding his coronary artery disease, s/p CABG in 2015 and hyperlipidemia. He now lives at [facility] and walks with. He denies chest pain or shortness of breath. He has intermittent palpitations, mostly at night. He is unable to specify how long the symptoms lasted. He has no other constitutional symptoms. He is dose of carvedilol was reduced to 3.125 mg twice daily due to hypotension. Past Medical History: Medical History[1] Past Surgical History Surgical History[2] Family History Family History[3] Social History Social History[4] Allergies: Allergies[5] Medications: Current Medications[6] Review of Systems: Review of Systems Respiratory: Negative for chest tightness and shortness of breath. Cardiovascular: Positive for palpitations (At night when laying down). Negative for chest pain. Musculoskeletal: Positive for gait problem. Neurological: Negative for dizziness and light-headedness. Physical Examination: Vitals: Vitals: 01/27/25 1425 BP: 100/66 BP Location: Right arm Patient Position: Sitting BP Cuff Size: Adult Pulse: 84 SpO2: 94% Height: 6' (1.829 m) Body mass index is 39.74 kg/m . Physical Exam Constitutional: Appearance: He is obese. HENT: Head: Normocephalic and atraumatic. Nose: Nose normal. Eyes: Extraocular Movements: Extraocular movements intact. Conjunctiva/sclera: Conjunctivae normal. Neck: Vascular: No carotid bruit. Cardiovascular: Rate and Rhythm: Normal rate and regular rhythm. Pulses: Normal pulses. Heart sounds: Normal heart sounds. No murmur heard. No gallop. Pulmonary: Effort: Pulmonary effort is normal. Breath sounds: Normal breath sounds. No wheezing. Abdominal: General: Bowel sounds are normal. Palpations: Abdomen is soft. Musculoskeletal: Right lower leg: No edema. Left lower leg: No edema. Skin: General: Skin is warm and dry. Neurological: General: No focal deficit present. Mental Status: He is alert and oriented to person, place, and time. Psychiatric: Mood and Affect: Mood normal. Behavior: Behavior normal. Laboratory Tests: Lab Results Component Value Date WBC 6.3 07/17/2024 HGB 9.2 (L) 07/17/2024 HCT 30.8 (L) 07/17/2024 MCV 91.4 07/17/2024 PLT 202 07/17/2024 Lab Results Component Value Date GLUCOSE 228 (H) 07/17/2024 CALCIUM 8.7 (L) 07/17/2024 NA 142 07/17/2024 K 4.3 07/17/2024 CO2 20 (L) 07/17/2024 CL 111 (H) 07/17/2024 BUN 28 (H) 07/17/2024 CREATININE 1.09 07/17/2024 Lab Results Component Value Date NA 142 07/17/2024 K 4.3 07/17/2024 CL 111 (H) 07/17/2024 CO2 20 (L) 07/17/2024 BUN 28 (H) 07/17/2024 CREATININE 1.09 07/17/2024 GLUCOSE 228 (H) 07/17/2024 CALCIUM 8.7 (L) 07/17/2024 PROT 5.5 (L) 07/17/2024 BILITOT 0.2 07/17/2024 ALKPHOS 85 07/17/2024 AST 10 07/17/2024 ALT <6 07/17/2024 Lab Results Component Value Date CREATININE 1.09 07/17/2024 CREATININE 1.17 07/16/2024 CREATININE 1.49 (H) 07/15/2024 Lab Results Component Value Date CHOL 108 11/30/2023 CHOL 82 04/24/2023 CHOL 113 04/13/2022 Lab Results Component Value Date TRIG 166 (H) 11/30/2023 TRIG 89 04/24/2023 TRIG 143 04/13/2022 Lab Results Component Value Date HDL 42 11/30/2023 HDL 37 (L) 04/24/2023 HDL 40 04/13/2022 Lab Results Component Value Date LDLCALC 33 11/30/2023 LDLCALC 27 04/24/2023 LDLCALC 44 04/13/2022 NT PRO BNP Date Value Ref Range Status 05/30/2024 533 (H) <125 pg/mL Final Cardiac Tests: EC05/30/24 Last Echo: 11/29/23 Last stress echo test: 07/14/23 Last cardiac catheterization: 08/07/17 Assessment and Plan: 1. Coronary artery disease involving coronary bypass graft of [place] heart without angina pectoris 2. Mixed hyperlipidemia James Reyes has known coronary artery disease, however he denies any chest pain. He is due for another lipid panel for his hyperlipidemia. No additional testing is recommended. Due to the patient's palpitations I will switch from carvedilol to metoprolol succinate due to increased beta-blockade effects and less hypotension. At this point I will hold off with a Holter or event monitor. Tentative follow-up in 3 months with a nurse practitioner. Due to the fact the patient lives in [place] we will try to get him seen in one of the closest facilities. I, Suzy Corcoran MD, furnished ongoing care related to James Reyes for their coronary artery disease, a serious and complex condition. I assume responsibility for the patient's ongoing medical care for this condition. I reviewed my assessment and plan with James Reyes . All questions were answered. NOTE: This report was transcribed using voice recognition software. Every effort was made to ensure accuracy; however, inadvertent computerized hostess errors may be present. [1] Past Medical History: Diagnosis Date Acute kidney injury 09/11/2015 CAD in [place] artery 08/08/2017 COPD (chronic obstructive pulmonary disease) (HCC) Developmental disorder Diabetes mellitus (HCC) Esophageal reflux Gastritis see EGD on 03/29/2016 GERD (gastroesophageal reflux disease) Hyperlipidemia IBS (irritable bowel syndrome) Mixed Obesity Osteoarthritis Pain management Plantar fasciitis, bilateral Unspecified sleep apnea Urinary retention [2] Past Surgical History: Procedure Laterality Date CHOLECYSTECTOMY [...] ENDOSCOPY 04/01/2016 gastritis, duodentitis WISDOM TOOTH EXTRACTION [3] Family History Problem Relation Name Age of Onset Heart attack Mother 61.00 Heart disease Father Other (84[address]) Brother accident Coronary artery disease Father Diabetes Father [4] Social History Tobacco Use Smoking status: Every Day Current packs/day: 1.00 Average packs/day: 1 pack/day for 51.8 years (51.8 ttl pk-yrs) Types: Cigarettes Start date: 04/28/1973 Smokeless tobacco: Never Vaping Use Vaping status: Never Used Substance Use Topics Alcohol use: No Alcohol/week: 0.0 standard drinks of alcohol Drug use: No Comment: caffeine use: decaf coffee sometimes [5] Allergies Allergen Reactions Penicillins Other reaction(s): Other (See Comments), Unknown unknown Tetracyclines & Related Other reaction(s): Other (See Comments), Unknown unknown [6] Current Outpatient Medications: acetaminophen (Tylenol) 325 MG tablet, Take 1,000 mg by mouth 3 times daily., Disp: , Rfl: Advair Diskus 250-50 MCG/ACT aerosol powder , , Disp: , Rfl: aspirin 81 MG chewable tablet, Chew 81 mg daily., Disp: , Rfl: atorvastatin (Lipitor) 80 MG [...] mouth 2 times daily., Disp: , Rfl: dulaglutide (Trulicity) 1.5 MG/0.5ML pen-injector, Inject 1.5 mg under the skin 1 (one) time per week., Disp: , Rfl: empagliflozin (Jardiance) 25 MG, Take 25 mg by mouth daily., Disp: , Rfl: ergocalciferol (Vitamin D-2) 1.25 MG (99782 UT) capsule, Take 1.25 mg by mouth 1 (one) time per week. Every Monday, Disp: , Rfl: ezetimibe (Zetia) 10 MG tablet, Take 10 mg by mouth Nightly., Disp: , Rfl: famotidine (Pepcid) 20 MG tablet, Take 20 mg by mouth in the morning., Disp: , Rfl: finasteride (Proscar) 5 MG tablet, Take 5 mg by mouth in the morning., Disp: , Rfl: Incruse Ellipta 62.5 MCG/ACT inhalation, Inhale 1 puff daily., Disp: , Rfl: insulin glargine (Lantus) 100 UNIT/ML injection, Inject 48 Units under the skin in the morning., Disp: , Rfl: Menthol, Topical Analgesic, (Biofreeze Cool The Pain) 4 % gel, Apply topically every 12 hours as needed (lower back)., Disp: , Rfl: nitroglycerin (Nitrostat) 0.4 MG SL tablet, Place 0.4 mg under the tongue every 5 minutes as needed for chest pain., Disp: , Rfl: nystatin (Mycostatin) cream, , Disp: , Rfl: pancrelipase, Wyw-Ykqm-Khdr, (Creon) 61681-00105 units capsule, Take by mouth 3 times daily (with meals)., Disp: , Rfl: pantoprazole (ProtoNix) 40 MG EC tablet, Take 1 tablet (40 mg) by mouth every morning (before breakfast). Do not crush, chew, or split., Disp: 30 tablet, Rfl: 11 pregabalin (Lyrica) 150 MG capsule, Take 1 capsule (150 mg) by mouth 2 times daily., Disp: 30 capsule, Rfl: 0 tamsulosin (Flomax) 0.4 MG 24 hr capsule, Take 0.4 mg by mouth daily., Disp: , Rfl: fluticasone (Flonase) 50 MCG/ACT nasal spray, Administer 1 spray into each nostril daily. Shake gently. Before first use, prime pump. After use, clean tip and replace cap., Disp: , Rfl: Insulin Lispro (Humalog) 100 UNIT/ML solution injection, Inject 16 Units under the skin in the morning and 16 Units at noon and 16 Units in the evening., Disp: , Rfl: metFORMIN (Glucophage) 500 MG tablet, Take 500 mg by mouth 2 times daily (with meals)., Disp: , Rfl: nabumetone (Relafen) 500 MG tablet, Take 750 mg by mouth 2 times daily., Disp: , Rfl: documented in this encounter [facility] 01-27-2025 Telephone encounter Note SW the front end developer designer at [facility]. We are canceling the appt on 02/07/25 due to the provider being out of the office. Please call back to reschedule. [facility] 01-27-2025 Miscellaneous Notes SW the front end developer designer at [facility]. We are canceling the appt on 02/07/25 due to the provider being out of the office. Please call back to reschedule. documented in this encounter [facility] 01-23-2025 Telephone encounter Note Called and left msg with admin person to have nurse call us back. When nurse from [facility] return call please inform the nurse that Dr. Marino said the urine result that was faxed to us was contaminated and negative. We will see patient on 01/28 at 1pm for urodynamic test. [facility] 01-23-2025 Miscellaneous Notes Called and left msg with admin person to have nurse call us back. When nurse from [facility] return call please inform the nurse that Dr. Marino said the urine result that was faxed to us was contaminated and negative. We will see patient on 01/28 at 1pm for urodynamic test. Urine scanned in media is contaminated and negative Please review urine culture result scanned under media and advise. Pt has Urodynamic scheduled for 01/28. Called and spoke with nurse Amos. Nurse amos said they will repeat urine culture at their facility tomorrow morning and fax us the result. Our fax number provided. Addended by: PITA ARCOS on: 01/20/2025 12:50 PM Modules accepted: Orders Repeat culture. Order placed. Urine culture result scanned under media. Looks like specimen is contaminated. Please review result and advise. Pt has Urodynamic scheduled on 01/28. Spoke with Conchita from [facility] who states Pt had urine culture done yesterday and we should be receiving urine culture result today via fax. Urodynamic scheduled for 01/28 at 1pm and follow up scheduled on 02/07 at 11:50am with Dr. Marino. Address provide to Conchita for both Appt. Pt is in wheelchair but able to ambulate and tranfers by himself per Conchita. ----- Message from Krystal Santos sent at 01/16/2025 8:36 AM EDT ----- ----- Message ----- From: Pepe Marino MD Sent: 01/14/2025 8:48 AM EDT To: Krystal Ricardo Schedule cmg see me after cmg Please coordinate urodynamic scheduling with [facility] Name of caller: Conchita Contact phone number: [phone] Relationship to Patient: Kavin FARAH Provider: Dr. Marino Practice: Urology Chief Complaint/Reason for Call: Conchita reviewed the office visit notes from the patient's visit with the provider today. Conchita advised noted that there is to be a CMG scheduled and it stated that "he will call to schedule." Conchita would like clarification that this is going to be scheduled by the office and they will call [facility] to advise of date and time, as she is not sure what a CMG is. Conchita stated that they need two days notice for transportation. Please reach out to Conchita to advise. Best time of day caller can be reached: any Patient advised that office/PCP has 24-48 business hours to return their call: Yes documented in this encounter [facility] 01-23-2025 Telephone encounter Note Urine scanned in media is contaminated and negative [facility] Work Phone: 01-23-2025 Telephone encounter Note Please review urine culture result scanned under media and advise. Pt has Urodynamic scheduled for 01/28. [facility] 01-20-2025 Telephone encounter Note Called and spoke with nurse Bette. Nurse bette said they will repeat urine culture at their facility tomorrow morning and fax us the result. Our fax number provided. [facility] 01-20-2025 Miscellaneous Notes Called and spoke with nurse Bette. Nurse bette said they will repeat urine culture at their facility tomorrow morning and fax us the result. Our fax number provided. Addended by: PITA ARCOS on: 01/20/2025 12:50 PM Modules accepted: Orders Repeat culture. Order placed. Urine culture result scanned under media. Looks like specimen is contaminated. Please review result and advise. Pt has Urodynamic scheduled on 01/28. Spoke with Conchita from [facility] who states Pt had urine culture done yesterday and we should be receiving urine culture result today via fax. Urodynamic scheduled for 01/28 at 1pm and follow up scheduled on 02/07 at 11:50am with Dr. Marino. Address provide to Conchita for both Appt. Pt is in wheelchair but able to ambulate and tranfers by himself per Conchita. ----- Message from Krystal Santos sent at 01/16/2025 8:36 AM EDT ----- ----- Message ----- From: Pepe Marino MD Sent: 01/14/2025 8:48 AM EDT To: Krystal Haleigh Schedule cmg see me after cmg Please coordinate urodynamic scheduling with [facility] Name of caller: Conchita Contact phone number: [phone] Relationship to Patient: Kavin FARAH Provider: Dr. Marino Practice: Urology Chief Complaint/Reason for Call: Conchita reviewed the office visit notes from the patient's visit with the provider today. Conchita advised noted that there is to be a CMG scheduled and it stated that "he will call to schedule." Conchita would like clarification that this is going to be scheduled by the office and they will call [facility] to advise of date and time, as she is not sure what a CMG is. Conchita stated that they need two days notice for transportation. Please reach out to Conchita to advise. Best time of day caller can be reached: any Patient advised that office/PCP has 24-48 business hours to return their call: Yes documented in this encounter [facility] 01-20-2025 Note Addended by: PITA ARCOS on: 01/20/2025 12:50 PM Modules accepted: Orders [facility] 01-20-2025 Note Addended by: PITA ARCOS on: 01/20/2025 12:50 PM Modules accepted: Orders [facility] 01-20-2025 Note Addended by: PITA ARCOS on: 01/20/2025 12:50 PM Modules accepted: Orders [facility] 01-20-2025 Note Addended by: PITA ARCOS on: 01/20/2025 12:50 PM Modules accepted: Orders [facility] 01-20-2025 Note Addended by: PITA ARCOS on: 01/20/2025 12:50 PM Modules accepted: Orders T [facility] 01-20-2025 Telephone encounter Note Repeat culture. Order placed. T [facility] 01-20-2025 Telephone encounter Note Urine culture result scanned under media. Looks like specimen is contaminated. Please review result and advise. Pt has Urodynamic scheduled on 01/28. [facility] 01-16-2025 Telephone encounter Note Spoke with Conchita from [facility] who states Pt had urine culture done yesterday and we should be receiving urine culture result today via fax. Urodynamic scheduled for 01/28 at 1pm and follow up scheduled on 02/07 at 11:50am with Dr. Marino. Address provide to Conchita for both Appt. Pt is in wheelchair but able to ambulate and tranfers by himself per Conchita. [facility] 01-16-2025 Miscellaneous Notes Spoke with Conchita from [facility] who states Pt had urine culture done yesterday and we should be receiving urine culture result today via fax. Urodynamic scheduled for 01/28 at 1pm and follow up scheduled on 02/07 at 11:50am with Dr. Marino. Address provide to Conchita for both Appt. Pt is in wheelchair but able to ambulate and tranfers by himself per Conchita. ----- Message from Krystal Santos sent at 01/16/2025 8:36 AM EDT ----- ----- Message ----- From: Pepe Marino MD Sent: 01/14/2025 8:48 AM EDT To: Krystal Ricardo Schedule cmg see me after cmg Please coordinate urodynamic scheduling with [facility] Name of caller: Conchita Contact phone number: [phone] Relationship to Patient: Kavin FARAH Provider: Dr. Marino Practice: Urology Chief Complaint/Reason for Call: Conchita reviewed the office visit notes from the patient's visit with the provider today. Conchita advised noted that there is to be a CMG scheduled and it stated that "he will call to schedule." Conchita would like clarification that this is going to be scheduled by the office and they will call [facility] to advise of date and time, as she is not sure what a CMG is. Conchita stated that they need two days notice for transportation. Please reach out to Conchita to advise. Best time of day caller can be reached: any Patient advised that office/PCP has 24-48 business hours to return their call: Yes documented in this encounter [facility] 01-16-2025 Telephone encounter Note ----- Message from Krystal Santos sent at 01/16/2025 8:36 AM EDT ----- ----- Message ----- From: Pepe Marino MD Sent: 01/14/2025 8:48 AM EDT To: Krystal Ricardo Schedule cmg see me after cmg [facility] 01-14-2025 Telephone encounter Note Please coordinate urodynamic scheduling with [facility] 01-14-2025 Telephone encounter Note Name of caller: Conchita Contact phone number: [phone] Relationship to Patient: Kavin FARAH Provider: Dr. Marino Practice: Urology Chief Complaint/Reason for Call: Conchita reviewed the office visit notes from the patient's visit with the provider today. Conchita advised noted that there is to be a CMG scheduled and it stated that "he will call to schedule." Conchita would like clarification that this is going to be scheduled by the office and they will call [facility] to advise of date and time, as she is not sure what a CMG is. Conchita stated that they need two days notice for transportation. Please reach out to Conchita to advise. Best time of day caller can be reached: any Patient advised that office/PCP has 24-48 business hours to return their call: Yes T [facility] 01-14-2025 History of Present illness Narrative 01/14/25 Chief Complaint Patient presents with Difficulty Urinating Burning, painful, feels air is passing while voiding Subjective: 12/03/23-urine culture 100k proteus 03/08/24-creat 1.01 bun 22 05/13/24-IOV-inc urge despite flomax and proscar. Noct x 3, hx uti Hx of elevated psa, uti urge inc failed detrol, and vesicare. Hx of large pvr. 05/22/2024-renal ultrasound no mass or hydronephrosis, KUB-not done 07/15/24-cystoscopy, prostate fossa open no TCC 01/14/25-has been on Flomax and Proscar. Burning at urine. 3 pull ups per day. Urge inc. Flow weak Physical Exam No flank mass or tenderness Bladder non tender, non distended Impression Diagnosis Plan 1. Recurrent UTI Urine culture Urine culture 2. Urge incontinence 3. Elevated PSA 4. BPH with lower urinary tract symptoms without urinary obstruction 5. Retention of urine, unspecified Bladder scan Plan Bph Gross hematuria-normal us, cysto no tcc but urine cloudy. Elevated psa Hx uti Urge inc-no obst on cysto likely ngb due to dm Dm [employer] Urine for culture Ab if culture positive Schedule cmg See me after cmg Bladder scan today for pvr Cont proscar and flomax for now Has failed detrol and vesicare Pepe Marino MD 01/14/25 8:48 AM PVR- 30 mL documented in this encounter [facility] 07-17-2024 History of Present illness Narrative Images from the original note were not included. PHYSICAL THERAPY [facility] Treatment Note Name/MRN: James Reyes ([id number]) Date of : 1955 Age: 68 y.o. Room[facility]Bed: [facility] B Visit #: 1 out of 7 visits Discharge Recommendation: [facility] Facility Other: TBD at next level of [...] from the original note were not included. [facility] [place] [address] [place] [address] Patient - James Reyes, Age - 68 y.o. - 1955 Room Number - [id number] B Consulting - Delisa Courtney MD Primary Care Physician [id number] Date of Admission - 07/15/2024 11:38 AM [...] non compliant per Liliana, his nurse at [facility]. 50 pack year smoking history. Recent [...] Nightly mometasone-formoterol, 2 puff, Inhalation, BID pancrelipase (Erx-Qcbq-Tvlo), 2 capsule, Oral, TID WC pantoprazole, 40 [...] apnea) Tobacco abuse Esophagitis, reflux Morbid obesity ([facility]) Type 2 diabetes, uncontrolled, with neuropathy Wound disruption, post-op, skin, initial encounter Uncontrolled type 2 diabetes mellitus with hyperglycemia, with long-term current use of insulin ([facility]) CAD in [place] artery Uncontrolled type 2 diabetes mellitus with complication, with long-term current use of insulin IBS (irritable bowel syndrome) Pseudomonas aeruginosa infection Angina at rest ([facility]) Sternal wound dehiscence director long term care (current) use of antibiotics Enlarged prostate with lower urinary tract symptoms (LUTS) Hypertensive heart disease COPD (chronic obstructive pulmonary disease) ([facility]) Arthritis of foot, degenerative Hiatal hernia Colitis Chest pain Anemia Colitis, collagenous Gastroesophageal reflux disease without esophagitis Closed head injury, initial encounter Acute hypercapnic respiratory failure ([facility]) Hematemesis Assessment Chronic hypoxic and hypercapnic respiratory failure Probable underlying COPD, not in acute exacerbation Suspected MINERVA Coffee-ground emesis-EGD with erythematous gastric mucosa without active bleeding Recommendations I spoke with patient's nurse Liliana at [facility] today. Patient supposed to be on 4 liters NC at nursing facility but is non compliant. He is currently on 6 liters NC this morning. I spoke with Isael ROACH on . Plan to wean FiO2 back [...] be monitored and followed by the diet vehicle monitor technician. Images from the original note were not included. OCCUPATIONAL THERAPY [facility] Initial Evaluation Name/MRN: James Reyes ([id number]) Evaluation Date: 07/16/2024 Date of : 1955 Admission Date: 07/15/2024 11:38 AM Age: 68 y.o. Room/Bed: [facility] B Discharge Recommendation: [facility] Facility Assessment IMPRESSION: Prior to admission, pt [...] Acute kidney injury (HCC) 09/11/2015 CAD in [place] artery 08/08/2017 COPD (chronic obstructive pulmonary disease) ([facility]) Developmental disorder Diabetes mellitus ([facility]) Esophageal reflux Gastritis see EGD on 03/29/2016 GERD (gastroesophageal reflux disease) Hyperlipidemia IBS (irritable bowel syndrome) Mixed Obesity Osteoarthritis Pain management Plantar fasciitis, bilateral Unspecified sleep apnea Urinary retention Past Surgical History: Past Surgical History: Procedure Laterality Date CHOLECYSTECTOMY 03/29/20162010 COLONOSCOPY 05/23/2017 COLONOSCOPY 03/29/2016, repeat in 10 years, Dr. Ness, normal except internal hemorrhoid COLONOSCOPY N/A 07/18/2022 Performed by David Chen MD at [facility] OR CORONARY ARTERY BYPASS GRAFT ESOPHAGOGASTRODUODENOSCOPY [...] 08/08/2017 Hematemesis 07/15/2024 Acute hypercapnic respiratory failure ([facility]) 05/30/2024 Closed head injury, initial encounter 11/29/2023 Uncontrolled type 2 diabetes mellitus with hyperglycemia, with long-term current use of insulin ([facility]) 10/30/2017 Uncontrolled type 2 diabetes mellitus with complication, with long-term current use of insulin 10/25/2017 Pseudomonas aeruginosa infection 10/20/2017 Sternal wound dehiscence 10/20/2017 USP (current) use of antibiotics 10/20/2017 Wound disruption, post-op, skin, initial encounter 10/16/2017 Dyslipidemia 08/08/2017 Knee osteoarthritis 08/08/2017 Insulin dependent diabetes mellitus 08/08/2017 MINERVA (obstructive sleep apnea) 08/08/2017 Tobacco abuse 08/08/2017 CAD in [place] artery 08/08/2017 Angina at rest ([facility]) 08/08/2017 Hypertensive heart disease 08/08/2017 COPD (chronic obstructive pulmonary disease) ([facility]) 08/08/2017 Chest pain 08/06/2017 Colitis, collagenous 06/15/2017 [...] of Care supervision is transferred to a [facility] Services Occupational Therapist. Goals and/or treatment plan was established in collaboration with patient/family/other representatives. [facility] Hospitalist Progress note [phone]: Please page me ([phone]) for patient care issues. [phone]: Please page [facility] Hospitalist for any issues. Subjective: Admit Date: 07/15/2024 PCP: Chelle Troncoso MD Room#: [id number] B James Reyes is a 68 y.o. male who presents with Hematemesis James is a 68 y.o. male with past medical history below who presents with chief complaint dark vomit and coffee-ground emesis 2 times prior to admission to the ER, in the ER he did not have any episode, patient is from [facility] , on review of records he [...] 8 mg/hr, Last Rate: 8 mg/hr (07/15/24 9345) sodium chloride, 100 mL/hr, Last Rate: 100 [...] Nightly mometasone-formoterol, 2 puff, Inhalation, BID pancrelipase (Ncd-Mjfr-Nama), 2 capsule, Oral, TID WC pregabalin, 150 [...] Facility - Pending the following -clinical improvement, sr. consultant recommendations Total time spent (which include [...] MD Division of Hospitalist Medicine Inpatient Medical Services/[facility] Images from the original note were not included. PHYSICAL THERAPY [facility] Initial Evaluation Name/MRN: James Reyes ([id number]) Evaluation Date: 07/16/2024 Date of : 1955 Admission Date: 07/15/2024 11:38 AM Age: 68 y.o. Room/Bed: [facility] B Discharge Recommendation: [facility] Facility Other: TBD at next level of [...] Acute kidney injury (HCC) 09/11/2015 CAD in [place] artery 08/08/2017 COPD (chronic obstructive pulmonary disease) [...] 08/08/2017 Hematemesis 07/15/2024 Acute hypercapnic respiratory failure ([facility]) 05/30/2024 Closed head injury, initial encounter 11/29/2023 Uncontrolled type 2 diabetes mellitus with hyperglycemia, with long-term current use of insulin ([facility]) 10/30/2017 Uncontrolled type 2 diabetes mellitus with complication, with long-term current use of insulin 10/25/2017 Pseudomonas aeruginosa infection 10/20/2017 Sternal wound dehiscence 10/20/2017 director long term care (current) use of antibiotics 10/20/2017 Wound disruption, post-op, skin, initial encounter 10/16/2017 Dyslipidemia 08/08/2017 Knee osteoarthritis 08/08/2017 Insulin dependent diabetes mellitus 08/08/2017 MINERVA (obstructive sleep apnea) 08/08/2017 Tobacco abuse 08/08/2017 CAD in [place] artery 08/08/2017 Angina at rest ([facility]) 08/08/2017 Hypertensive heart disease 08/08/2017 COPD (chronic obstructive pulmonary disease) ([facility]) 08/08/2017 Chest pain 08/06/2017 Colitis, collagenous 06/15/2017 Anemia 05/23/2017 Gastroesophageal reflux disease without esophagitis 05/23/2017 Colitis 05/21/2017 Esophagitis, reflux 04/26/2017 Type 2 diabetes, uncontrolled, with neuropathy 04/26/2017 Hiatal hernia 02/21/2017 Arthritis of foot, degenerative 01/09/2017 Enlarged prostate with lower urinary tract symptoms (LUTS) 09/07/2016 Morbid obesity ([facility]) 08/12/2016 Shoulder pain, left 10/23/2014 Knee pain, [...] Hearing: normal Social/Functional History Patient admitted from [facility] . Assistive Equipment: front wheeled [...] 1015 Time Out 1029 Minutes 14 Arabella Shen, PT Patient's Physical Therapy Plan of Care supervision is transferred to a [facility] Physical Therapist. Goals and/or treatment plan was established in collaboration with patient/family/other representatives. Patient declined smoking cessation counseling. Accepting of handout with contact information for future reference. documented in this encounter [facility] 07-17-2024 Plan of care note Problem: [...] Outcome: Adequate for Discharge [facility] 07-17-2024 Miscellaneous Notes Problem: Knowledge Deficit [...] For additional Questions please call Endoscopy at [phone]. [facility] You[facility] James Re[facility] Procedure Date: 07/16/2024 10:45 AM Gender: Male Date of : 1955 Age: 68 Admit Type: Inpatient Note Status: Finalized Endoscopist: Jaret Blackwood DO, [id number] Procedure: Upper GI endoscopy Indications: Coffee-ground emesis [...] immediate complications. Procedure Code(s): --- Professional --- 59754, Esophagogastroduodenoscopy, flexible, transoral; with biopsy, single or multiple --- Technical --- 76182, Esophagogastroduodenoscopy, flexible, transoral; with biopsy, single or multiple Diagnosis Code(s): --- Professional --- K44.9, Diaphragmatic hernia without obstruction or gangrene K31.89, Other diseases of stomach and duodenum K92.0, Hematemesis --- Technical --- K44.9, Diaphragmatic hernia without obstruction or gangrene K31.89, Other diseases of stomach and duodenum K92.0, Hematemesis CPT copyright 2021 [employer]. All rights reserved. The codes documented in this report are preliminary and upon clam shucking machine tender review may be revised to meet current [...] is Maintained or Improved Outcome: Progressing [facility], [facility] [place] [facility] and can return when medically stable. . [facility]. . documented in this encounter [facility] 07-17-2024 Note [facility] Hospitalist Radha morris Summary James Reyes : 1955 Admit date: 07/15/2024 Discharge date: 07/17/2024 Admitting Physician: Bethany Sandhu MD Primary Care Physician: Chelle Troncoso MD VISIT STATUS: Inpatient/Observation CODE STATUS: Full Code DISCHARGE DIAGNOSES: Principal Problem: Hematemesis Hematemesis Upper GI bleed likely due to duodenitis and aspirin Mild hypoxia with respiratory insufficiency Acute renal insufficiency Chronic problems Obesity Possible sleep apnea Type [...] not have any episode, patient is from [facility] , on review of records he [...] Patient Position: Lying) Pulse 60 Temp 36.2 ?C (97.1 ?F) (Temporal) Resp 18 Wt 293 lb (133 kg) SpO2 97% BMI 39.74 kg/m? Pulse Ox: SpO2 Av % Min: 94 % Max: 97 % Supplemental O2: O2 Flow Rate (L/min): 4 (more content not included)... [facility] 07-17-2024 Hospital course Narrative Images from the original note were not included. [facility] Hospitalist Discharge Summary James Reyes : 1955 [...] not have any episode, patient is from [facility] , on review of records he [...] Commonly known as: Bentyl ergocalciferol 1.25 MG (49611 UT) capsule Commonly known as: Vitamin D-2 [...] nystatin cream Commonly known as: Mycostatin pancrelipase (Zxo-Pfhy-Ptuo) 45134-95886 units capsule Commonly known as: Creon pregabalin [...] Your Medications These medications were sent to [facility] - [place], [place] - [address], [place] [address] pantoprazole 40 MG EC tablet Recommended Follow-up: Viki Ball APRN - SEISMIC PROSPECTING SUPERVISOR [address], [place] [facility] [address] Go on 07/31/2024 Pulmonary hospital follow up at 1:40 PM Chelle Troncoso MD [address] [facility] [address] Follow up Hospital follow up Complexity of Follow up: [] Moderate Complexity: follow up within 7-14 calendar days (49645) [x] Severe Complexity: follow up within 7 calendar days (03782) Follow up Testing, Pending results or Referrals [...] MD Division of Hospitalist Medicine Inpatient Medical Services/[facility] 07/17/2024, 12:55 PM documented in this encounter [facility] 07-17-2024 Plan of care note Problem: Knowledge Deficit Goal: Patient/family/caregiver demonstrates understanding of disease process, treatment plan, medications, and discharge instructions Outcome: Progressing Problem: Potential for Compromised Skin Integrity Goal: Skin Integrity is Maintained or Improved Outcome: Progressing Goal: Nutritional status is improving Outcome: Progressing [facility] 07-17-2024 Nurse Note Wound Care consulted [...] ointment applied. Prevention Measures in place, including: [place] sheet (obtained) with pillows/wedges, Heels elevated off bed on pillows, Zinc/Moisture Barrier ointment (obtained and applied), Waffle chair cushion (obtain for pt once getting out of bed to chair). Skin Care precaution order set in place. Dietitian vehicle monitor technician involved. PT/OT consult in place. D/W nursing staff. Will continue to follow pt. Please secure chat for any questions or concerns. Kaycee Ricardo RN [facility] 07-17-2024 Nurse Note Wound Care consulted [...] ointment applied. Prevention Measures in place, including: [place] sheet (obtained) with pillows/wedges, Heels elevated off bed on pillows, Zinc/Moisture Barrier ointment (obtained and applied), Waffle chair cushion (obtain for pt once getting out of bed to chair). Skin Care precaution order set in place. Dietitian vehicle monitor technician involved. PT/OT consult in place. D/W nursing staff. Will continue to follow pt. Please secure chat for any questions or concerns. Kaycee Ricardo RN documented in this encounter [facility] 07-16-2024 Consult note Associated Order (s): [...] coffee-ground emesis. This reportedly happened twice at [facility] prior to arrival to the ED. [...] Acute kidney injury (HCC) 09/11/2015 CAD in [place] artery 08/08/2017 COPD (chronic obstructive pulmonary disease) [...] 07/18/2022 Performed by David Chen MD at [facility] OR CORONARY ARTERY BYPASS GRAFT FOOT [...] attack Mother 61.00 Heart disease Father Other ([id number]) Brother accident Coronary artery disease Father Diabetes [...] Nightly mometasone-formoterol, 2 puff, Inhalation, BID pancrelipase (Aft-Vgvc-Juum), 2 capsule, Oral, TID WC pregabalin, 150 mg, Oral, BID tamsulosin, 0.4 mg, Oral, Daily Continuous Infusions:pantoprazole (ProtoNix) 80 mg in sodium chloride 0.9 % 100 mL (0.8 mg/mL) infusion, 8 mg/hr, Last Rate: 8 mg/hr (07/15/24 5772) sodium chloride, 100 mL/hr, Last Rate: 100 [...] ABGs: Recent Labs 07/15/24 171 PHART 7.313* ASY6NFJ 46.3 PO2ART 70.1* JEC3IEH 22.9 [id number] Nasal Cannula (LPM) Lactic Acid: No results [...] Narrative [facility] 1955 [id number] Exam Date/Time: 07/15/2024 12:10 Procedure: XR CHEST [...] normal. Behavior: Behavior normal. Behavior is cooperative. [employer] Phone: 07-16-2024 Consult note Associated Order (s): [...] coffee-ground emesis. This reportedly happened twice at [facility] prior to arrival to the ED. [...] Acute kidney injury (HCC) 09/11/2015 CAD in [place] artery 08/08/2017 COPD (chronic obstructive pulmonary disease) [...] attack Mother 61.00 Heart disease Father Other ([id number]) Brother accident Coronary artery disease Father Diabetes [...] Nightly mometasone-formoterol, 2 puff, Inhalation, BID pancrelipase (Zth-Porb-Ahor), 2 capsule, Oral, TID WC pregabalin, 150 [...] ABGs: Recent Labs 07/15/24 1711 PHART 7.313* CDD9AUT 46.3 PO2ART 70.1* ZJG6BFH 22.9 [id number] Nasal Cannula (LPM) Lactic Acid: No results [...] Narrative [facility]: [facility] 1955 [id number] Exam Date/Time: 07/15/2024 12:10 Procedure: XR CHEST [...] coffee-ground emesis x 2. Patient transferred from [facility] with 2 episodes of coffee-ground emesis. [...] Acute kidney injury (HCC) 09/11/2015 CAD in [place] artery 08/08/2017 COPD (chronic obstructive pulmonary disease) [...] 07/18/2022 Performed by David Chen MD at [facility] OR CORONARY ARTERY BYPASS GRAFT FOOT [...] attack Mother 61.00 Heart disease Father Other ([id number]) Brother accident Coronary artery disease Father Diabetes [...] No dose, route, or frequency recorded. pancrelipase, Azw-Flct-Bhuc, (Creon) 26326-46236 units capsule 3 times daily with meals [...] Bethany Sandhu MD, 3.125 mg at 07/16/24 09 dextrose 5 % infusion, 100 mL/hr, IntraVENous, [...] IntraVENous, q6h PRN, Bethany Sandhu MD pancrelipase (Tke-Ouho-Daqg) (Creon) 6000-74923 units per capsule 2 capsule, 2 capsule, Oral, TID WC, Bethany Sandhu MD, 2 capsule at 07/15/24 162 pantoprazole (ProtoNix) 80 mg in sodium chloride 0.9 % 100 mL (0.8 mg/mL) infusion, 8 mg/hr, IntraVENous, Continuous, Bethany Sandhu MD, Last Rate: 10 mL/hr at 07/15/24 2355, 8 mg/hr at 07/15/242354 polyethylene glycol (PEG) [...] documented in this encounter [facility] 07-16-2024 Note OCCUPATIONAL THERAPY [facility] Initial Evaluation Name/MRN: James Reyes ([id number]) Evaluation Date: 07/16/2024 Date of : 1955 Admission Date: 07/15/2024 11:38 AM Age: 68 y.o. Room/Bed: [facility] B Discharge Recommendation: [facility] Facility Assessment IMPRESSION: Prior to admission, pt [...] Acute kidney injury (HCC) 09/11/2015 CAD in [place] artery 08/08/2017 COPD (chronic obstructive pulmonary disease) [...] 08/08/2017 Hematemesis 07/15/2024 Acute hypercapnic respiratory failure ([facility]) 05/30/2024 Closed head injury, initial encounter 11/29/2023 Uncontrolled type 2 diabetes mellitus with hyperglycemia, with long-term current use of insulin ([facility]) 10/30/2017 Uncontrolled type 2 diabetes mellitus with complication, with long-term current use of insulin 10/25/2017 Pseudomonas aeruginosa infection 10/20/2017 Sternal wound dehiscence 10/20/2017 USP (current) use of antibiotics 10/20/2017 Wound disruption, post-op, skin, initial encounter 10/16/2017 Dyslipidemia 08/08/2017 Knee osteoarthritis 08/08/2017 Insulin dependent diabetes mellitus 08/08/2017 MINERVA (obstructive sleep apnea) 08/08/2017 Tobacco abuse 08/08/2017 CAD in [place] artery 08/08/2017 Angina at rest ([facility]) 08/08/2017 Hypertensive heart disease 08/08/2017 COPD (chronic obstructive pulmonary disease) ([facility]) 08/08/2017 Chest pain 08/06/2017 Colitis, collagenous 06/15/2017 Anemia 05/23/2017 Gastroesophageal reflux disease without esophagitis 05/23/2017 Colitis 05/21/2017 Esophagitis, reflux 04/26/2017 Type 2 diabetes, uncontrolled, with neuropathy 04/26/2017 Hiatal hernia 02/21/2017 Arthritis of foot, degenerative 01/09/2017 Enlarged prostate with lower urinary tract symptoms (LUTS) 09/07/2016 Morbid obesity ([facility]) 08/12/2016 Shoulder pain, left 10/23/2014 Knee pain, [...] Function Prior Level of ADL Function: Independent Sydnee (more content not included)... [facility] 07-16-2024 Note [facility] Hospitalist Pr ogress note [phone]: Please page me ([phone]) for patient care issues. [phone]: Please page [facility] night Hospitalist for any issues. Subjective: Admit Date: 07/15/2024 PCP: Chelle Troncoso MD Room#: [id number] B James Reyes is a 68 y.o. male who presents with Hematemesis James is a 68 y.o. male with past medical history below who presents with chief complaint dark vomit and coffee-ground emesis 2 times prior to admission to the ER, in the ER he did not have any episode, patient is from [facility] , on review of records he [...] Vitals: BP 121/69 Pulse 74 Temp 36.8 ?C (98.2 ?F) (Temporal) Resp 18 Wt 293 lb (133 kg) SpO2 92% BMI 39.74 kg/m? Pulse Ox: SpO2 Av.4 % Min: 91 [...] 8 mg/hr, Last Rate: 8 mg/hr (07/15/24 4205) sodium chloride, 100 mL/hr, Last Rate: 100 [...] Nightly mometasone-formoterol, 2 puff, Inhalation, BID pancrelipase (Lic-Rlth-Jvqc), 2 capsule, Oral, TID WC pregabalin, 150 [...] [] H2 Sonny, [] Carafate, [] Diet/Tube (more content not included)... [facility] 07-16-2024 Evaluation + Plan note POST ENDOSCOPY PROCEDURE TRANSFER REPORT Procedure completed: EGD Findings:See Dr Blackwood' Report Specimens obtained: Yes Medications administered: See Anesthesia Record Additional Info: No adverse events or complications. For additional Questions please call Endoscopy at [phone]. Thank You! [facility] 07-16-2024 Note POST ENDOSCOPY PROCE DURE TRANSFER REPORT Procedure completed: EGD Findings:See Dr Blackwood' Report Specimens obtained: Yes Medications administered: See Anesthesia Record Additional Info: No adverse events or complications. For additional Questions please call Endoscopy at [phone]. Thank You! [facility] 07-16-2024 Note Patient: James Mendoza all Procedure Summary Date: 07/16/24 Room / Location: [place] [address] / [facility] Gastroenterology Anesthesia Start: 112 Anesthesia Stop: 115 Procedure: ESOPHAGOGASTRODUODENOSCOPY, WITH CONTROL OF BLEEDING Diagnosis: Coffee ground emesis Providers: Jaret Blackwood DO Responsible Provider: Theo Patel MD Anesthesia Type: TIVA ASA Status: 3 Anesthesia Type: TIVA Vitals Value Taken Time BP 109/56 07/16/24 1149 Temp 36.8 ?C (98.2 ?F) 07/16/24 1149 Pulse 77 07/16/24 1149 Resp 18 07/16/24 1149 SpO2 92 % 07/16/24 1149 Anesthesia Post Evaluation Patient location during evaluation: PACU Patient participation: complete - patient participated Level of consciousness: awake and alert Pain management: satisfactory to patient Airway patency: patent Dental Injury: no Cardiovascular status: acceptable, blood pressure returned to baseline and hemodynamically stable Respiratory status: acceptable and spontaneous ventilation Hydration status: euvolemic Nausea/Vomiting: controlled No notable events documented. Patient can be discharged once all PACU criteria has been met. [facility] 07-16-2024 Note Patient: James Mendoza all Procedure Summary Date: 07/16/24 Room / Location: [address] Gastroenterology Anesthesia Start: 1120 Anesthesia Stop: 115 Procedure: ESOPHAGOGASTRODUODENOSCOPY, WITH CONTROL OF BLEEDING Diagnosis: Coffee ground emesis Providers: Jaret Blackwood DO Responsible Provider: Theo Patel MD Anesthesia Type: TIVA ASA Status: 3 Anesthesia Type: TIVA Vitals Value Taken Time BP 109/56 07/16/24 1149 Temp 36.8 ?C (98.2 ?F) 07/16/24 1149 Pulse 77 07/16/24 1149 Resp 18 07/16/24 1149 SpO2 92 % 07/16/24 1149 Anesthesia Post Evaluation Patient location during evaluation: PACU Patient participation: complete - patient participated Level of consciousness: awake and alert Pain management: satisfactory to patient Multimodal analgesia pain management approach Airway patency: patent Two or more strategies used to mitigate risk of obstructive sleep apnea Cardiovascular status: acceptable and hemodynamically stable Respiratory status: acceptable Hydration status: acceptable No notable events documented. MIPS #430 PONV Patient did not receive an inhalational anesthetic (XX430) MIPS # 424 Perioperative Temperature Management Anesthesia time was less than 60 minutes (4256F) MIPS #477 Multimodal Pain Management Not emergent case Patient was not administered multimodal pain management (G2149) Patient reports no pain in PACU (G2149) MIPS #404 Anesthesiology Smoking Abstinence The patient is a current smoker (G9642) (e.g. cigarette, cigar, pipe, e-cigarette/vaping/marijuana) The patient underwent an elective surgery or procedure requiring anesthesia (G9643) The patient did not receive preop smoking cessation instructions prior to the day of surgery or procedure by , JOHNATHON director sales and marketing proxy staff ([id number]) I completed my handoff to the receiving clinician during which we: 1. Identified the patient 2. Identified the responsible provider 3. Reviewed the pertinent medical history 4. Discussed the surgical course 5. Reviewed intra-op anesthesia management and issues during anesthesia 6. Set expectations for post-procedure period 7. Allowed opportunity for questions and acknowledgement of understanding. [facility] 07-16-2024 Note PHYSICAL THERAPY [facility] Initial Evaluation Name/MRN: James Reyes ([id number]) Evaluation Date: 07/16/2024 Date of : 1955 Admission Date: 07/15/2024 11:38 AM Age: 68 y.o. Room/Bed: [facility] B Discharge Recommendation: [facility] Facility Other: TBD at next level of [...] Medical History: Diagnosis Date Acute kidney injury ([facility]) 09/11/2015 CAD in [place] artery 08/08/2017 COPD (chronic obstructive pulmonary disease) ([facility]) Developmental disorder Diabetes mellitus ([facility]) Esophageal reflux Gastritis see EGD on 03/29/2016 GERD (gastroesophageal reflux disease) Hyperlipidemia IBS (irritable bowel syndrome) Mixed Obesity Osteoarthritis Pain management Plantar fasciitis, bilateral Unspecified sleep apnea Urinary retention Past Surgical History: Past Surgical History: Procedure Laterality Date CHOLECYSTECTOMY 03/29/20162010 COLONOSCOPY 05/23/2017 COLONOSCOPY 03/29/2016, repeat in 10 years, Dr. Ness, normal except internal hemorrhoid COLONOSCOPY N/A 07/18/2022 Performed by David Chen MD at [facility] OR CORONARY ARTERY BYPASS GRAFT FOOT [...] 08/08/2017 Hematemesis 07/15/2024 Acute hypercapnic respiratory failure ([facility]) 05/30/2024 Closed head injury, initial encounter 11/29/2023 Uncontrolled type 2 diabetes mellitus with hyperglycemia, with long-term current use of insulin ([facility]) 10/30/2017 Uncontrolled type 2 diabetes mellitus with complication, with long-term current use of insulin 10/25/2017 Pseudomonas aeruginosa infection 10/20/2017 Sternal wound dehiscence 10/20/2017 USP (current) use of antibiotics 10/20/2017 Wound disruption, post-op, skin, initial encounter 10/16/2017 Dyslipidemia 08/08/2017 Knee osteoarthritis 08/08/2017 Insulin dependent diabetes mellitus 08/08/2017 MINERVA (obstructive sleep apnea) 08/08/2017 Tobacco abuse 08/08/2017 CAD in [place] artery 08/08/2017 Angina at rest (HCC) 08/08/2017 Hypertensive heart disease 08/08/2017 COPD (chronic obstructive pulmonary disease) ([facility]) 08/08/2017 Chest pain 08/06/2017 Colitis, collagenous 06/15/2017 [...] Risk) Precautions/Restrictions: Fall Precautions Family/Caregiver Present: none Over (more content not included)... [facility] 07-16-2024 Note Patient: James Mendoza all Procedure Information Date/Time: 07/16/24 1115 Procedure: ESOPHAGOGASTRODUODENOSCOPY, WITH CONTROL OF BLEEDING Location: [facility] / [facility] Gastroenterology Providers: Jaret Blackwood, DO Relevant Problems Anesthesia (+) MINERVA (obstructive sleep apnea) Cardio (+) Angina at rest (HCC) (+) CAD in [place] artery Endo (+) Uncontrolled type 2 diabetes mellitus with complication, with long-term current use of insulin GI (+) Gastroesophageal reflux disease without esophagitis (+) Hiatal hernia (+) IBS (irritable bowel syndrome) /Renal (+) Enlarged prostate with lower urinary tract symptoms (LUTS) Pulmonary (+) COPD (chronic obstructive pulmonary disease) ([facility]) (+) MINERVA (obstructive sleep apnea) Other (+) Arthritis of foot, degenerative (+) Knee osteoarthritis Past Medical History: Past Medical History: 09/11/2015: Acute kidney injury (HCC) 08/08/2017: CAD in [place] artery No date: COPD (chronic obstructive pulmonary disease) ([facility]) No date: Developmental disorder No date: Diabetes mellitus ([facility]) No date: Esophageal reflux No date: Gastritis Comment: see EGD on 03/29/2016 No date: GERD (gastroesophageal reflux disease) No date: Hyperlipidemia No date: IBS (irritable bowel syndrome) Comment: Mixed No date: Obesity No date: Osteoarthritis No date: Pain management No date: Plantar fasciitis, bilateral No date: Unspecified sleep apnea No date: Urinary retention Past Surgical History: Past Surgical History: 03/29/2016: CHOLECYSTECTOMY Comment: 201005/23/2017: COLONOSCOPY No date: COLONOSCOPY Comment: 03/29/2016, repeat in 10 years, Dr. Ness, normal except internal hemorrhoid 07/18/2022: COLONOSCOPY; N/A Comment: Performed by David Chen MD at [facility] OR No date: CORONARY ARTERY BYPASS GRAFT No date: FOOT SURGERY; Left Comment: 2014 No date: HEMORRHOID SURGERY Comment: 1997 No date: INNER EAR SURGERY Comment: tube placement in ears 10/16/2017: LAYERED WOUND CLOSURE; N/A Comment: sternal wound debridment and closure with wound vac 10/24/2017: OTHER SURGICAL HISTORY Comment: I&D sternal wound with flap No date: OTHER SURGICAL HISTORY Comment: punching bag removal No date: THYROID SURGERY Comment: nodule removal 2010 No date: TONSILLECTOMY (HISTORICAL) 04/01/2016: UPPER GASTROINTESTINAL ENDOSCOPY Comment: gastritis, duodentitis No date: WISDOM TOOTH EXTRACTION Social History: TOBACCO: reports that he has been smoking cigarettes. He started smoking about 51 years ago. He has a 51.2 pack-year smoking history. He has never used smokeless tobacco. ETOH: reports no history of alcohol use. Social History Substance and Sexual Activity Drug Use No Comment: caffeine use: decaf coffee sometimes Family History: Family History Problem Relation Name Age of Onset Heart attack Mother 61.00 Heart disease Father Other ([id number]) Brother accident Coronary artery disease Father Diabetes Father Screening: unknown Clinical information reviewed: Allergies Physical Exam Airway Mallampati: III Neck ROM: limited Mouth Open: limited Cardiovascular Dental (+) Upper Dentures, Lower Dentures Pulmonary Abdominal Anesthesia Plan patient is NPO appropriate Any family history or previous problems with anesthesia no ASA 3 TIVA Any family history or previous problems with anesthesia no The patient is a current smoker. Patient was not previously instructed to abstain from smoking on day of procedure. Patient did not smoke on day of procedure. Anesthetic plan and risks discussed with patient. MINERVA Screening Labs: Lab Results Component Value Date WBC 7.3 07/16/2024 HGB 9.0 (L) 07/16/2024 HCT 31.0 (L) 07/16/2024 MCV 92.3 07/16/2024 PLT 194 07/16/2024 Lab Results Component Value Date NA 139 07/16/2024 K 4.3 07/16/2024 CL 111 (H) 07/16/2024 CO2 20 (L) 07/16/2024 BUN 32 (H) 07/16/2024 CREATININE 1.17 07/16/2024 GLUCOSE 186 (H) 07/16/2024 CALCIUM 8.5 (L) 07/16/2024 PROT 5.5 (L) 07/16/2024 ALKPHOS 81 07/16/2024 AST 16 07/16/2024 ALT 9 07/16/2024 EGFR 68.3 07/16/2024 Pain Score: Scheduled No echocardiogram results found for the past 14 days 05/30/24 ECG 12-LEAD 05/30/2024 11:40 AM (Final) Impression Sinus tachycardia Left anterior fascicular block Borderline low voltage, extremity leads Abnormal T, consider ischemia, lateral leads Electronically Signed On 05-30-2024 11:40:42 EST by Arsh Mar Signed by: Arsh Mar MD on 05/30/2024 11:40 AM Equipment Requests: Additional Equipment Requests [facility] 07-16-2024 Note Endoscopy Center- [facility] Patient Name: James Reyes Procedure Date: 07/16/2024 10:45 AM Gender: Male Date of : 1955 Age: 68 Admit Type: Inpatient Note Status: Finalized Endoscopist: Jaret Blackwood DO, [id number] Procedure: Upper GI endoscopy Indications: Coffee-ground emesis [...] immediate complications. Procedure Code(s): --- Professional --- 62750, Esophagogastroduodenoscopy, flexible, transoral; with biopsy, single or multiple --- Technical --- 46364, Esophagogastroduodenoscopy, flexible, transoral; with biopsy, single or multiple Diagnosis Code(s): --- Professional --- K44.9, Diaphragmatic hernia without obstruction or gangrene K31.89, Other diseases of stomach and duodenum K92.0, Hematemesis --- Technical --- K44.9, Diaphragmatic hernia without obstruction or gangrene K31.89, Other diseases of stomach and duodenum K92.0, Hematemesis CPT copyright 2021 [employer]. All rights reserved. The codes documented in this report are preliminary and upon clam shucking machine tender review may be revised to meet current compliance requirements. Attending Participation: I personally performed the entire procedure. Jaret Blackwood DO 07/16/2024 11:48:32 AM This report has been signed electronically. Number of Addenda: 0 Note Initiated On: 07/16/2024 10:45 AM [facility]16[facility] Procedure Date: 07/16/2024 10:45 AM Gender: Male Date of : 1955 Age: 68 Admit Type: Inpatient Note Status: Finalized Endoscopist: Jaret Blackwood DO, [id number] Procedure: Upper GI endoscopy Indications: Coffee-ground emesis [...] immediate complications. Procedure Code(s): --- Professional --- 15859, Esophagogastroduodenoscopy, flexible, transoral; with biopsy, single or multiple --- Technical --- 75081, Esophagogastroduodenoscopy, flexible, transoral; with biopsy, single or multiple Diagnosis Code(s): --- Professional --- K44.9, Diaphragmatic hernia without obstruction or gangrene K31.89, Other diseases of stomach and duodenum K92.0, Hematemesis --- Technical --- K44.9, Diaphragmatic hernia without obstruction or gangrene K31.89, Other diseases of stomach and duodenum K92.0, Hematemesis CPT copyright 2021 [employer]. All rights reserved. The codes documented in this report are preliminary and upon clam shucking machine tender review may be revised to meet current compliance requirements. Attending Participation: I personally performed the entire procedure. Jaret Blackwood DO 07/16/2024 11:48:32 AM This report has been signed electronically. Number of Addenda: 0 Note Initiated On: 07/16/2024 10:45 AM T [facility] 07-16-2024 Plan of care note Problem: Knowledge Deficit Goal: Patient/family/caregiver demonstrates understanding of disease process, treatment plan, medications, and discharge instructions Outcome: Progressing Problem: Potential for Compromised Skin Integrity Goal: Skin Integrity is Maintained or Improved Outcome: Progressing T [facility] 07-16-2024 Note Patient declined smo janey cessation counseling. Accepting of handout with contact information for future reference. [facility] 07-16-2024 Consult note Associated Order (s): IP [...] coffee-ground emesis x 2. Patient transferred from [facility] with 2 episodes of coffee-ground emesis. [...] Acute kidney injury (HCC) 09/11/2015 CAD in [place] artery 08/08/2017 COPD (chronic obstructive pulmonary disease) [...] 07/18/2022 Performed by David Chen MD at [facility] OR CORONARY ARTERY BYPASS GRAFT FOOT [...] attack Mother 61.00 Heart disease Father Other ([id number]) Brother accident Coronary artery disease Father Diabetes [...] No dose, route, or frequency recorded. pancrelipase, Htf-Ygcx-Ooyl, (Creon) 05731-32382 units capsule 3 times daily with meals [...] inhaler 2 puff, 2 puff, Inhalation, BID, Bethayn Sandhu MD, 2 puff at 07/16/24 0903 nitroglycerin (Nitrostat) SL tablet 0.4 mg, 0.4 mg, SubLINGual, q5 min PRN, Bethany Sandhu MD ondansetron ODT (Zofran-ODT) disintegrating tablet 4 mg, 4 mg, Oral, q8h PRN OR ondansetron (Zofran) injection 4 mg, 4 mg, IntraVENous, q6h PRN, Betahny Sandhu MD pancrelipase (Cam-Geqk-Oirg) (Creon) 6000-32553 units per capsule 2 capsule, 2 capsule, [...] by Jaret Blackwood DO 07/16/2024 9:12 AM [place] Phone: 07-16-2024 Note GASTROENTEROLOGY CON SULTATION REASON FOR CONSULT: The patient was seen in consultation at the request of Dr. Courtney re: Hematemesis HISTORY OF PRESENT ILLNESS: The patient is a 68 y.o. male with past medical history as listed below who presents with reported coffee-ground emesis x 2. Patient transferred from [facility] with 2 episodes of coffee-ground emesis. [...] Acute kidney injury (HCC) 09/11/2015 CAD in [place] artery 08/08/2017 COPD (chronic obstructive pulmonary disease) [...] 07/18/2022 Performed by David Chen MD at [facility] OR CORONARY ARTERY BYPASS GRAFT FOOT [...] attack Mother 61.00 Heart disease Father Other ([id number]) Brother accident Coronary artery disease Father Diabetes [...] No dose, route, or frequency recorded. pancrelipase, Hyy-Xdpn-Fuhb, (Creon) 96807-44271 units capsule 3 times daily with meals [...] PRN, Bethany Sandhu MD albuterol 108 (90 B (more content not included)... [facility] 07-15-2024 Emergency department Note Patient taken to the floor via medic. [facility] 07-15-2024 Emergency department Note Patient taken [...] Acute kidney injury (HCC) 09/11/2015 CAD in [place] artery 08/08/2017 COPD (chronic obstructive pulmonary disease) [...] - do not believe this will change advisor. ED course: Diagnoses as of 07/15/24 1430 Hematemesis ED medications managed: Medications pantoprazole (ProtoNix) 40 mg in sodium chloride (PF) 0.9 % 10 mL injection (40 mg IntraVENous Given 07/15/24 1212) Chronic conditions and social determinants of health affecting care: COPD DISPOSITION/PLAN Admit 07/15/2024 01:32:16 PM Amanuel Parisi MD Emergency Medicine Amanuel Parisi MD 07/16/24 0816 Patient arrives from [facility] via ambulance due to coffee ground emesis twice. documented in this encounter [facility] 07-15-2024 Note Formatting of this n ote might be different from the original. Per pedro, [place] [facility] and can return when medically stable. . [facility] 07-15-2024 Note Formatting of this n ote might be different from the original. Per pedro, patient is [place] [facility] and can return when medically stable. . [facility] 07-15-2024 Hospital Discharge instructions Isael Ash [...] 07/18/2022 Performed by David Chen MD at [facility] OR CORONARY ARTERY BYPASS GRAFT FOOT [...] current use of insulin (HCC) CAD in [place] artery Uncontrolled type 2 diabetes mellitus with complication, with long-term current use of insulin Pseudomonas aeruginosa infection Angina at rest ([facility]) Sternal wound dehiscence director long term care (current) use of antibiotics Enlarged prostate with lower urinary tract symptoms (LUTS) Hypertensive heart disease Overview Signed 01/27/2022 12:43 PM by Interface, Incoming Problems- [facility] Conversion ECHO DONE [facility] 55% EF SHOWS HYPERTENSIVE HEART DISEASE COPD (chronic obstructive pulmonary disease) ([facility]) Overview Signed 01/27/2022 12:43 PM by Interface, Incoming Problems- [facility]path Conversion PATIENT IS ON 2 LITER OF OXYGEN AND NOW IS SEEING DR ESTRADA WAS TESTED [facility]AL[facility]ED HOME OXYGEN 07/17/2015 Arthritis [...] Total assistance Toileting Minimal assistance Feeding Independent Dining Room Captain Independent Med Delivery no Wound Care Documentation [...] Status Date: Discharging to Facility/ Agency Name: [facility] Address:[address] [place] [address] Dialysis Facility (if applicable) Name: Address: Dialysis Schedule: Phone: Fax: Denture Processor/Assembly Worker signature: ICIAN SECTION Name: James Reyes Prognosis: [...] to a nursing facility directly from an [facility] or a unit of a hospital that is not operated by or licensed by [facility] under section 5119.14 or 5160-3-15.1 5 The individual requires the level of services provided by a nursing facility for the condition for which he or she was treated in the hospital and, Physician Certification: I certify the above information and transfer of James Reyes is necessary for the continuing treatment of the diagnosis listed and that he requires group home facility for greater than 30 days. Update Admission H&P: No change in H&P PHYSICIAN SIGNATURE: documented in this encounter [facility] 07-15-2024 Note Formatting of this n ote might be different from the original. Return referral placed in careport to [facility]. . [facility] 07-15-2024 Note Formatting of this n ote might be different from the original. Return referral placed in careport to [facility]. . [facility] 07-15-2024 Note [facility]. . [facility] 07-15-2024 History and physical note Attending History [...] not have any episode, patient is from [facility] , on review of records he is on nabumetone and aspirin, he is type II diabetic on insulin Was given Protonix IV, patient also dropped his sats and became lethargic, he was placed on Ventimask which improved his sats, denies being on BiPAP or CPAP at the facility, called the nurse at the facility and awaiting callback. In the ER H&H 33.6, BUN/creatinine 37/1.49, INR of 1.1 Chest x-ray showed Borderline cardiomegaly. Low lung volumes and pulmonary vascular congestion. No lobar consolidation is seen. Will admit for further evaluation and management. 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 COPD (chronic obstructive pulmonary disease) [...] 07/18/2022 Performed by David Chen MD at [facility] OR CORONARY ARTERY BYPASS GRAFT FOOT [...] attack Mother 61.00 Heart disease Father Other ([id number]) Brother accident Coronary artery disease Father Diabetes [...] mouth daily. ergocalciferol (Vitamin D-2) 1.25 MG (86076 UT) capsule Take 1.25 mg by mouth [...] for chest pain. nystatin (Mycostatin) cream pancrelipase, Oms-Dkeo-Iiaj, (Creon) 69451-07717 units capsule Take by mouth 3 times [...] Acute kidney injury (HCC) 09/11/2015 CAD in [place] artery 08/08/2017 COPD (chronic obstructive pulmonary disease) [...] sleep apnea-pulmonology consult - am labs, replace artur prn - PT/OT/CM/SW - delirium precautions: - [...] Contact Information Primary Emergency Contact: Sreekanth Reyes [place] Relation: Sibling [employer]ING James Reyes : 1955 Primary Care Physician: Chelle Troncoso MD The patient and/or family/surrogate voluntarily agreed to participate in ACP services. Patient s cognitive capacity: Code Status: [*_] [FULL CODE - Continue all advanced life support: CPR,intubation,invasive procedures] [_] [DNR-CCA - DO NOT do CPR, intubation] [_] [DNR-SCIENCE TEACHER - Comfort care only] [_] DNR form [...] Bethany Sandhu MD Division of Hospitalist Medicine [facility] [place] Phone: 07-15-2024 Note Attending History an d Physical Admit Date: 07/15/2024 PCP: Chelle Troncoso [...] not have any episode, patient is from [facility] , on review of records he [...] Acute kidney injury (HCC) 09/11/2015 CAD in [place] artery 08/08/2017 COPD (chronic obstructive pulmonary disease) [...] attack Mother 61.00 Heart disease Father Other ([id number]) Brother accident Coronary artery disease Father Diabetes [...] packet by mouth in the morning and (more content not included)... [facility] 07-15-2024 History and physical note Attending History [...] not have any episode, patient is from [facility] , on review of records he [...] Acute kidney injury (HCC) 09/11/2015 CAD in [place] artery 08/08/2017 COPD (chronic obstructive pulmonary disease) [...] 07/18/2022 Performed by David Chen MD at [facility] OR CORONARY ARTERY BYPASS GRAFT FOOT [...] attack Mother 61.00 Heart disease Father Other (25145) Brother accident Coronary artery disease Father Diabetes [...] mouth daily. ergocalciferol (Vitamin D-2) 1.25 MG (34099 UT) capsule Take 1.25 mg by mouth [...] for chest pain. nystatin (Mycostatin) cream pancrelipase, Zal-Wpwy-Dozh, (Creon) 68254-05481 units capsule Take by mouth 3 times [...] Acute kidney injury (HCC) 09/11/2015 CAD in [place] artery 08/08/2017 COPD (chronic obstructive pulmonary disease) [...] Contact Information Primary Emergency Contact: Sreekanth Reyes [place] Relation: Sibling ADV[employer]ANNING James Reyes : 1955 Primary Care Physician: Chelle Troncoso MD The patient and/or family/surrogate voluntarily agreed to participate in ACP services. Patient s cognitive capacity: Code Status: [*_] [FULL CODE - Continue all advanced life support: CPR,intubation,invasive procedures] [_] [DNR-CCA - DO NOT do CPR, intubation] [_] [DNR-SCIENCE TEACHER - Comfort care only] [_] DNR form [...] Bethany Sandhu MD Division of Hospitalist Medicine [facility] documented in this encounter [facility] 07-15-2024 Emergency department Triage note Patient arrives from [facility] via ambulance due to coffee ground emesis twice. [facility] 07-15-2024 Physician Emergency department Note Emergency [...] Acute kidney injury (HCC) 09/11/2015 CAD in [place] artery 08/08/2017 COPD (chronic obstructive pulmonary disease) [...] - do not believe this will change advisor. ED course: Diagnoses as of 07/15/24 1430 Hematemesis ED medications managed: Medications pantoprazole (ProtoNix) 40 mg in sodium chloride (PF) 0.9 % 10 mL injection (40 mg IntraVENous Given 07/15/24 1212) Chronic conditions and social determinants of health affecting care: COPD DISPOSITION/PLAN Admit 07/15/2024 01:32:16 PM Amanuel Parisi MD Emergency Medicine Amanuel Parisi MD 07/16/24 0816 [facility] 06-27-2024 History of Present illness Narrative UROJET 2% LIDOCAINE JELLY [facility] 62502-747-20 LOT [id number] EXP 05/16/2026 ADMINISTERED BY Nettie Carreon LPN [...] 06/27/24 11:55 AM documented in this encounter [facility] [employer] 06-04-2024 Nurse Note Nurse to nurse report given to Sj Cruz. [facility] 06-04-2024 Nurse Note Nurse to nurse report given to Sj Cruz. Attempted to wean patient to 2L NC. Patient sats dropped to 87%. 88-90% on 3L NC. Patient left on 4L NC at this time with continuous pulse ox showing 94%. Instructed to call out with any needs. documented in this encounter [facility] 06-04-2024 Hospital Discharge instructions Tish Diaz [...] Contact Information Primary Emergency Contact: Sreekanth Reyes [place] Relation: Sibling Past Surgical History: Past Surgical [...] hyperglycemia, with long-term current use of insulin ([facility]) CAD in [place] artery Uncontrolled type 2 diabetes mellitus with complication, with long-term current use of insulin Pseudomonas aeruginosa infection Angina at rest ([facility]) Sternal wound dehiscence director long term care (current) use of antibiotics Enlarged prostate with lower urinary tract symptoms (LUTS) Hypertensive heart disease Overview Signed 01/27/2022 12:43 PM by Interface, Incoming Problems- [facility] Conversion ECHO [facility] 55% EF SHOWS HYPERTENSIVE HEART DISEASE COPD (chronic obstructive pulmonary disease) ([facility]) Overview Signed 01/27/2022 12:43 PM by Interface, [...] assistance Toileting minimal assistance Feeding Minimal assistance Dining Room Captain Minimal assistance Med Delivery no Wound Care [...] Status Date: 05/30/24 Discharging to Facility/ Agency [facility] [address] [place] [address] [address] [place] [address] Dialysis Facility (if applicable) Name: Address: Dialysis Schedule: Phone: Fax: Denture Processor/Assembly Worker signature: ICIAN SECTION Name: James Reyes Prognosis: {Rehab Prognosis:64942} Condition at Discharge: {Patient Condition:26725} Rehab Potential (if transferring to Rehab): {Rehab Prognosis:71737} Recommended Labs or Other Treatments After Discharge: BiPAP 18 over 10 cm H2O with 4 L supplemental O2 bleed at at bedtime. Fullface mask size medium The individual is being admitted to a nursing facility directly from an [facility] or a unit of a [facility] that is not operated by or licensed by [facility] under section 5119.14 or 5160-3-15.1 5 The individual requires the level of services provided by a nursing facility for the condition for which he or she was treated in the hospital and, Physician Certification: I certify the above information and transfer of James Reyes is necessary for the continuing treatment of the diagnosis listed and that he requires {CRUZ Level of Care:89792} for {greater less than:13941} 30 days. Update Admission H&P: {CRUZ Changes in H&P:28299} PHYSICIAN SIGNATURE: {E-signature:42975} documented in this encounter [facility] 06-04-2024 Note Formatting of this n ote is different from the original. Images from the original note were not included. Updates DC order entered Confirmed pickup time of 4pm by [employer] [facility] notified Sreekanth tejeda notified [facility] 06-04-2024 Note Formatting of this n ote is different from the original. Images from the original note were not included. Updates DC order entered Confirmed pickup time of 4pm by transport Ros[facility] notified Sreekanth motleyer notified [facility] 06-04-2024 Miscellaneous Notes Images from the original note were not included. Updates DC order entered Confirmed pickup time of 4pm by transport Rosum [facility] notified Sreekanth motleyer notified Confirmed pickup time of 4pm by transport Rosum at phone number [phone]. Location of facility drop off is [facility]. Facility notified via [facility], [facility] notified on secure chat. The BLS Vehicle you requested for James Mosley in unit/room [facility] B2-250 on 06/04/2024 is scheduled to arrive at 4:00pm EST! [employer] is handling this ride and you can contact them at . Transport requested 4pm grain picker in [employer]. Awaiting time confirmation. Discharge med list transmitted to return back to [facility] via Careport per TCC request. Problem: Knowledge Deficit Goal: [...] intake Outcome: Progressing Rounds this am Per [facility] Careport communications: patient is LTC and does have [...] Outcome: Progressing Pt transferred out to [facility] service from icu. Problem: Knowledge Deficit Goal: [...] improved Outcome: Progressing Return referral placed to [facility] via Careport per TCC request. Await review and response regarding ability to accept. TCC notified. Inpatient status from [facility] with acute hypercapnic resp failure. Admitted to ICU for NIV. Currently requiring high flow oxygen 60% fio2 and 40 liters. Receiving iv antibiotics, iv steroids, scheduled aerosols, and ss insulin coverage. 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 Anticipated discharge plan is to return to [facility] when medically stable. Problem: Knowledge Deficit [...] documented in this encounter [facility] 06-04-2024 Note Formatting of this n ote might be different from the original. Confirmed pickup time of 4pm by transport company [employer] [facility] at phone number [phone]. Location of facility drop off is [facility]. Facility notified via Careport, TCC notified on secure chat. The BLS Vehicle you requested for James Mosley in unit/room [facility] [id number] on 06/04/2024 is scheduled to arrive at 4:00pm EST! [facility] is handling this ride and you can contact them at . [employer] 06-04-2024 Note Formatting of this n ote might be different from the original. Confirmed pickup time of 4pm by transport [employer] [facility] at phone number [phone]. Location of facility drop off is [facility]. Facility notified via Careport, TCC notified on secure chat. The BLS Vehicle you requested for James Mosley in unit/room [id number] on 06/04/2024 is scheduled to arrive at 4:00pm EST! [facility] [facility] is handling this ride and you can contact them at . [employer] 06-04-2024 Note Formatting of this n ote might be different from the original. Transport requested 4pm grain picker in [employer]. Awaiting time confirmation. [employer] 06-04-2024 Note Formatting of this n ote might be different from the original. Transport requested 4pm grain picker in [employer]. Awaiting time confirmation. [facility] 06-04-2024 Note Formatting of this n ote might be different from the original. Discharge med list transmitted to return back to [facility] via Careport per TCC request. [facility] 06-04-2024 Note Formatting of this n ote might be different from the original. Discharge med list transmitted to return back to [facility] via Careport per TCC request. [facility] 06-04-2024 Note Hospitalist Discharg e Summary James Reyes : 1955 Admit date: 05/30/2024 Discharge date: 06/04/2024 Admitting Physician: Haydee Willis DO Primary Care Physician: Chelle Troncoso MD Visit Status: INPATIENT Code Status: Full Code BRIEF HOSPITAL COURSE: 05/30James Reyes is a 68 y.o. male who presents to the emergency department from a group home facility for evaluation of nausea, vomiting, shortness [...] out of ICU to our medical service Acute, acute on chronic, unstable/uncontrolled chronic problems/discharge diagnoses: Severe sepsis - improved, leukocytosis resolved , PNA workup has been negative , blood cultures neg , sepsis of unknown source AE COPD- improved , nebs, will discharge on steroid taper per pulmonology Acute hypoxemic hypercapnic respiratory failure - now on nasal cannula at 4 liters SATs 91-94, titrate as tri , pulmonology following Respiratory acidosis - resolved T2DM with hyperglycemia - monitor BS, continue prandial insulin and sliding scale Normocytic anemia - monitor with daily CBC, remains stable Hypophosphatemia - placed on oral supplement will continue to monitor , mild, resolved , electrolytes WNL Stable chronic problems affecting care, new non-acute discharge diagnoses: Hx developmental delay Hx of dilated ascending aorta 4.0 cm GERD Class 3 morbid obesity - BMI 40 HTN CAD- s/p CABG Past Medical History: Diagnosis Date Acute kidney injury (HCC) 09/11/2015 CAD in [place] artery 08/08/2017 COPD (chronic obstructive pulmonary disease) (HCC) Developmental disorder Diabetes mellitus (HCC) Esophageal reflux Gastritis see EGD on 03/29/2016 GERD (gastroesophageal reflux disease) Hyperlipidemia IBS (irritable bowel syndrome) Mixed Obesity Osteoarthritis Pain management Plantar fasciitis, bilateral Unspecified sleep apnea Urinary retention Procedures: XR chest 1 view Status: Final result Link to Procedure Log Procedure Log PACS Images Show images for XR chest 1 view Study Result Narrative & Impression Patient Name: [facility] : 1955 [id number] Exam Date/Time: 05/31/2024 03:40 Procedure: XR CHEST [...] Electronically Signed Date/Time: 05/31/2024 5:51 AM EST Hospital Course: He improved but is still requiring 4 liters per nasal cannula. He was cleared by pulmonology for discharge on a prednisone taper. See discharge diagnoses list above and medication adjustments below in med rec.The patient is discharged in improved and stable condition. Consults: IP CONSULT TO DIETITIAN Discharge Instructions: Diet: Dietary Orders (From admission, onward) Start Ordered 05/31/24 1153 Adult diet Regular; 4 carb choices (60 gm/meal) Diet effective now Question Answer Comment Diet type Regular Carbohydrate restriction: 4 carb choices (60 gm/meal) 05/31/24 1152 Activity: as tolerated Recommended Outpatient Tests: Disposition: Patient discharged in stable condition to [facility] (Non[facility]Sk[facility] Greater than 31 minutes spent discharging the patient and coming up with patient discharge plan. Vitals: BP 144/71 (BP Location: Left arm, Patient Position: Lying) Pulse 52 Temp (!) 35.8 ?C (96.5 ?F) (Temporal) Resp 18 Ht 6' (1.829 m) Wt 293 lb 14 oz (133 kg) SpO2 93% BMI 39.86 kg/m? Pulse Ox: SpO2 Av.6 % Min: 93 % Max: 99 % Supplemental O2: O2 Flow Rate (L/min): 4 L/min Physical Exam Vit (more content not included)... [facility] 06-04-2024 History of Present illness Narrative Images from the original note were not included. [facility] [place] Care and [...] WC ipratropium-albuterol, 3 mL, Nebulization, TID pancrelipase (Mep-Gbmc-Puzs), 1 capsule, Oral, TID WC pantoprazole, 40 [...] original note were not included. PHYSICAL THERAPY [facility] Treatment Note Name/MRN: James Reyes ([id number]) Date of : 1955 Age: 68 y.o. Room/Bed: B2-250/B2-250 B Visit #: 1 out of 5 visits Discharge Recommendation: [facility] Facility Equipment Needed: (TBD by facility) Prior [...] from the original note were not included. [facility] [place] Pulmonary Critical Care and [...] TID mupirocin, 1 Application, Nasal, BID pancrelipase (Wun-Cjgl-Kden), 1 capsule, Oral, TID WC pantoprazole, 40 [...] presents to the emergency department from a group home facility for evaluation of nausea, vomiting, shortness [...] Acute kidney injury (HCC) 09/11/2015 CAD in [place] artery 08/08/2017 COPD (chronic obstructive pulmonary disease) (HCC) Developmental disorder Diabetes mellitus (HCC) Esophageal reflux Gastritis see EGD on 03/29/2016 GERD (gastroesophageal reflux disease) Hyperlipidemia IBS (irritable bowel syndrome) Mixed Obesity Osteoarthritis Pain management Plantar fasciitis, bilateral Unspecified sleep apnea Urinary retention LABS: CBC: Recent Labs 06/01/24 0410 06/02/2415306/03/24317 WBC 9.1 7.5 6.1 RBC 3.16* 3.11* 3.22* HGB 9.2* 8.9* 9.2* HCT 30.7* 29.6* 30.6* MCV 97.2 95.2 95.0 RDW 15.4* 15.1* 15.1* PLT 205 206 197 BMP: Recent Labs 06/01/24 0410 06/02/24 01506/03/24317 NA 133* 136 137 K 4.8 4.6 [...] TID mupirocin, 1 Application, Nasal, BID pancrelipase (Tql-Rmou-Fggo), 1 capsule, Oral, TID WC pantoprazole, 40 [...] the next 24-48 hours - Location - [facility] (Non-Sk[facility]) - Pending the following - pulmonology clearance Total time spent (which include face to face and non face to face encounters) : minutes Toxic drug monitoring/narrow therapeutic index drug monitoring : # Drug name : # Route administered : # Method of monitoring : Extended Emergency Contact Information Primary Emergency Contact: Sreekanth Reyes Relation: Sibling PATRICIA Bonilla CNP Division of Hospitalist Medicine [facility] Respiratory Care Department Progress Note As [...] presents to the emergency department from a group home facility for evaluation of nausea, vomiting, shortness [...] Acute kidney injury (HCC) 09/11/2015 CAD in [place] artery 08/08/2017 COPD (chronic obstructive pulmonary disease) (HCC) Developmental disorder Diabetes mellitus (HCC) Esophageal reflux Gastritis see EGD on 03/29/2016 GERD (gastroesophageal reflux disease) Hyperlipidemia IBS (irritable bowel syndrome) Mixed Obesity Osteoarthritis Pain management Plantar fasciitis, bilateral Unspecified sleep apnea Urinary retention LABS: CBC: Recent Labs 05/31/2440406/01/2440906/02/24 015 WBC 11.4* 9.1 7.5 RBC 3.41* 3.16* [...] daily mupirocin, 1 Application, Nasal, BID pancrelipase (Aty-Rdrj-Xadr), 1 capsule, Oral, TID WC pantoprazole, 40 [...] Contact Information Primary Emergency Contact: Sreekanth Reyes [place] Relation: Sibling Krissy AlondraPATRICIA Taveras CNP Division of Hospitalist Medicine Acute care [facility] Images from the original note were not included. PHYSICAL THERAPY [facility] Initial Evaluation Name/MRN: James Reyes ([id number]) Evaluation Date: 06/01/2024 Date of : 1955 Admission Date: 05/30/2024 8:35 AM Age: 68 y.o. Room/Bed: 222-04/222-04 A Discharge Recommendation: [facility] Facility Equipment Needed: (TBD by facility) Assessment [...] Acute kidney injury (HCC) 09/11/2015 CAD in [place] artery 08/08/2017 COPD (chronic obstructive pulmonary disease) [...] bowel syndrome) 08/08/2017 Acute hypercapnic respiratory failure ([facility]) 05/30/2024 Closed head injury, initial encounter 11/29/2023 Uncontrolled type 2 diabetes mellitus with hyperglycemia, with long-term current use of insulin ([facility]) 10/30/2017 Uncontrolled type 2 diabetes mellitus with complication, with long-term current use of insulin 10/25/2017 Pseudomonas aeruginosa infection 10/20/2017 Sternal wound dehiscence 10/20/2017 director long term care (current) use of antibiotics 10/20/2017 Wound disruption, post-op, skin, initial encounter 10/16/2017 Dyslipidemia 08/08/2017 Knee osteoarthritis 08/08/2017 Insulin dependent diabetes mellitus 08/08/2017 MINERVA (obstructive sleep apnea) 08/08/2017 Tobacco abuse 08/08/2017 CAD in [place] artery 08/08/2017 Angina at rest ([facility]) 08/08/2017 Hypertensive heart disease 08/08/2017 COPD (chronic obstructive pulmonary disease) ([facility]) 08/08/2017 Chest pain 08/06/2017 Colitis, collagenous 06/15/2017 Anemia 05/23/2017 Gastroesophageal reflux disease without esophagitis 05/23/2017 Colitis 05/21/2017 Esophagitis, reflux 04/26/2017 Type 2 diabetes, uncontrolled, with neuropathy 04/26/2017 Hiatal hernia 02/21/2017 Arthritis of foot, degenerative 01/09/2017 Enlarged prostate with lower urinary tract symptoms (LUTS) 09/07/2016 Morbid obesity ([facility]) 08/12/2016 Shoulder pain, left 10/23/2014 Knee pain, [...] events, decreased short term memory, and decreased group home memory - Safety judgement: decreased awareness of [...] one told me that". Reports year as "303." Did state "[facility]" as location after cueing, initially reported [...] Raw Score (No Stairs) : 7 [facility] Score: Static standing (1 or more [...] of Care supervision is transferred to a [facility] Therapy Services Physical Therapist. Goals and/or treatment [...] 1955(68 y.o.) Date: 05/31/24 Team: MICU Attending: ADNRES Assessment and Plan: Severe sepsis Acute hypoxemic [...] Vitals: BP MAP 130/63 (05/31/24 0903) 82 (05/31/24 09) Arterial BP MAP Temp 36.7 C (98 F) (05/31/24 08) Pulse 85 (05/31/24 0903) Resp 20 (05/31/24 09) SpO2 97 % (05/31/24 08) Weight 135 kg (296 lb 11.2 oz) [...] muscle mass loss Fluid Accumulation: Mild Extremities Learning Disabilities Resource Teacher Strength: Not Performed Nutrition Assessment: Pt is a 68 y/o male admitted to [facility] with acute hypercapnic respiratory failure- admitted with vomiting coffee ground emesis and SOB. Pt came from [facility] s/p open heart procedure. Pt remains NPO [...] (kg): 135 kg Total Energy Requirements (kcals/day): 2386-7279 kcals (11-14 kcals/kg) Weight Used for Protein Requirements: [place] Weight in Kg Used for Protein Requirements: [...] (276#-05/12/23, 284#-03/08/24) % Weight Change (Calculated): 7.2 [place] Body Weight (lbs) (Calculated): 178 lbs [place] Body Weight (Kg) (Calculated): 81 kg % [place] Body Weight (Calculated): 166.3 % BMI (kg/m2) [...] soon to determine Alejandra Olivas RD Contact: *[phone] or via Secure Chat Vancomycin therapy has been discontinued by Dr. Haydee Willis on 30may2024. Thank you for the consult. Pharmacy signing off for vancomycin dosing. Jessica LinD, Date: 05/30/24 Time: 6:10 PM Patient currently on NIV, smoking cessation counseling held at this time. documented in this encounter [facility] 06-04-2024 Note Patient currently of f unit, will attempt smoking cessation counseling at a later time. [facility] 06-04-2024 Plan of care note Problem: Knowledge [...] Interventions Goal: Promote nutritional intake Outcome: Progressing [facility] 06-03-2024 Nurse Note Attempted to wean patient to 2L NC. Patient sats dropped to 87%. 88-90% on 3L NC. Patient left on 4L NC at this time with continuous pulse ox showing 94%. Instructed to call out with any needs. [facility] 06-03-2024 Note Formatting of this n ote might be different from the original. Rounds this am Per [facility] communications: patient is LTC and does have bedhold. No auth needed to return - just a time and any updates 96% on RA this am Updates: Attempted to wean patient to 2L NC. Patient sats dropped to 87%. 88-90% on 3L NC. Patient left on 4L NC [facility] 06-03-2024 Note Formatting of this n ote might be different from the original. Rounds this am Per [facility] communications: patient is LTC and does have bedhold. No auth needed to return - just a time and any updates 96% on RA this am Updates: Attempted to wean patient to 2L NC. Patient sats dropped to 87%. 88-90% on 3L NC. Patient left on 4L NC [facility] 06-03-2024 Note Rounds this am Per [facility] communications: patient is LTC and does have bedhold. No auth needed to return - just a time and any updates 96% on RA this am Updates: Attempted to wean patient to 2L NC. Patient sats dropped to 87%. 88-90% on 3L NC. Patient left on 4L NC [facility] 06-03-2024 Note Hospitalist Progress Note 06/03/2024 Subjective: Admit Date: 05/30/2024 PCP: Chelle Troncoso MD Room#: B2-266/B2-266 A BRIEF HOSPITAL COURSE: 05/30James Reyes is a 68 y.o. male who presents to the emergency department from a group home facility for evaluation of nausea, vomiting, shortness [...] Intake/Output Summary (Last 24 hours) at 06/03/2024 0961 Last data filed at 06/03/2024 0935 Gross per 24 hour Intake 220 ml Output 3625 ml Net -3405 ml 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 COPD (chronic obstructive pulmonary disease) (HCC) Developmental disorder Diabetes mellitus (HCC) Esophageal reflux Gastritis see EGD on 03/29/2016 GERD (gastroesophageal reflux disease) Hyperlipidemia IBS (irritable bowel syndrome) Mixed Obesity Osteoarthritis Pain management Plantar fasciitis, bilateral Unspecified sleep apnea Urinary retention LABS: CBC: Recent Labs 06/01/2440906/02/2415306/03/24317 WBC 9.1 7.5 6.1 RBC 3.16* 3.11* 3.22* HGB 9.2* 8.9* 9.2* HCT 30.7* 29.6* 30.6* MCV 97.2 95.2 95.0 RDW 15.4* 15.1* 15.1* PLT 205 206 197 BMP: Recent Labs 06/01/2440906/02/2415306/03/24317 NA 133* 136 137 K 4.8 4.6 [...] Position: Lying) Pulse 56 Temp (!) 35.1 ?C (95.1 ?F) (Temporal) Resp 18 Ht 6' (1.829 m) Wt 298 lb 11.6 oz (135 kg) SpO2 96% BMI 40.51 kg/m? Pulse Ox: SpO2 Av.4 % Min: 91 [...] TID mupirocin, 1 Application, Nasal, BID pancrelipase (Hbp-Jzja-Wcjc), 1 capsule, Oral, TID WC pantoprazole, 40 [...] counted (each=1, panels count as 1). (CAT1) Ordere (more content not included)... [facility] 06-03-2024 Plan of care note Problem: Knowledge [...] nutritional intake Outcome: Progressing [facility] 06-02-2024 Note [facility] Respiratory Care Department Progress Note As part [...] Respiratory in the care of this patient, [facility] 06-02-2024 Consult note Formatting of th is note is different from the original. Images from the original note were not included. [facility] [place] [address] [place], [place] [id number] [id number] 1955 Date of Admission - 05/30/2024 8:35 AM Date of evaluation - 06/02/2024 Room - [facility] A Hospital Day - 3 Consulting - Manjinder Sanchez MD Primary Care Physician - Chelle Troncoso MD Active Hospital Problem List Patient Active Problem List Diagnosis Shoulder pain, left Dyslipidemia Knee pain, bilateral Knee osteoarthritis Insulin dependent diabetes mellitus MINERVA (obstructive sleep apnea) Tobacco abuse Esophagitis, reflux Morbid obesity ([facility]) Type 2 diabetes, uncontrolled, with neuropathy Wound disruption, post-op, skin, initial encounter Uncontrolled type 2 diabetes mellitus with hyperglycemia, with long-term current use of insulin ([facility]) CAD in [place] artery Uncontrolled type 2 diabetes mellitus with complication, with long-term current use of insulin IBS (irritable bowel syndrome) Pseudomonas aeruginosa infection Angina at rest ([facility]) Sternal wound dehiscence director long term care (current) use of antibiotics Enlarged prostate with lower urinary tract symptoms (LUTS) Hypertensive heart disease COPD (chronic obstructive pulmonary disease) (HCC) Arthritis of foot, degenerative Hiatal hernia Colitis Chest pain Anemia Colitis, collagenous Gastroesophageal reflux disease without esophagitis Closed head injury, initial encounter Acute hypercapnic respiratory failure (HCC) Reason for Consult Respiratory failure on BiPAP. History of Present Illness James Reeys is a 68 y.o. male admitted for [...] Acute kidney injury (HCC) 09/11/2015 CAD in [place] artery 08/08/2017 COPD (chronic obstructive pulmonary disease) [...] attack Mother 61.00 Heart disease Father Other ([id number]) Brother accident Coronary artery disease Father Diabetes [...] daily mupirocin, 1 Application, Nasal, BID pancrelipase (Tnd-Yrqr-Sxpw), 1 capsule, Oral, TID WC pantoprazole, 40 [...] No dose, route, or frequency recorded. pancrelipase, Xfs-Pajd-Xsof, (Creon) [id number] units capsule 3 times daily with meals [...] Intake/Output Summary (Last 24 hours) at 06/02/2024 0989 Last data filed at 06/02/2024 0847 Gross per 24 hour Intake 1550 ml Output 3300 ml Net -1750 ml @[id number]@ Physical Exam General appearance: Sleepy easily awake [...] note please contact the signing provider directly. [employer] Phone: 06-02-2024 Consult note Formatting of th is note is different from the original. Images from the original note were not included. [facility] [place] [place] [address] [place] [id number] [id number] 1955 Date of Admission - 05/30/2024 8:35 AM Date of evaluation - 06/02/2024 Room - -266/[facility] A Hospital Day - 3 [...] current use of insulin (HCC) CAD in [place] artery Uncontrolled type 2 diabetes mellitus with complication, with long-term current use of insulin IBS (irritable bowel syndrome) Pseudomonas aeruginosa infection Angina at rest (HCC) Sternal wound dehiscence USP (current) use of antibiotics Enlarged prostate with [...] Acute kidney injury (HCC) 09/11/2015 CAD in [place] artery 08/08/2017 COPD (chronic obstructive pulmonary disease) [...] 07/18/2022 Performed by David Chen MD at [facility] OR CORONARY ARTERY BYPASS GRAFT FOOT [...] attack Mother 61.00 Heart disease Father Other ([id number]) Brother accident Coronary artery disease Father Diabetes [...] daily mupirocin, 1 Application, Nasal, BID pancrelipase (Dsy-Twoj-Wavt), 1 capsule, Oral, TID WC pantoprazole, 40 [...] No dose, route, or frequency recorded. pancrelipase, Zeg-Xgmd-Anli, (Creon) [id number] units capsule 3 times daily with meals [...] ml Output 3300 ml Net -1750 ml @[id number]@ Physical Exam General appearance: Sleepy easily awake [...] creatinine, and vancomycin levels interfaced automatically to [employer] and data has been analyzed and interpreted. [...] Chat Internal Medicine: MICU Initial Consult James Cook Amy : 1955(68 y.o.) Date: May 30, 2024 [...] Acute kidney injury (HCC) 09/11/2015 CAD in [place] artery 08/08/2017 COPD (chronic obstructive pulmonary disease) [...] attack Mother 61.00 Heart disease Father Other ([id number]) Brother accident Coronary artery disease Father Diabetes [...] tablet Chew 81 mg daily. 08/26/21 Historical ProviderMD atorvastatin (Lipitor) 80 MG [...] Historical Provider, ergocalciferol (Vitamin D-2) 1.25 MG (83224 UT) capsule Take 1.25 mg by mouth [...] nystatin (Mycostatin) cream 11/08/22 Historical Provider, pancrelipase, Gbt-Bcmv-Irdo, (Creon) [id number] units capsule Take by mouth 3 times [...] ABGs: Recent Labs 05/30/24 0937 PHART 7.290* KXM0QIE 50.7* PO2ART 64.1* [id number] 23.8 [id number] 89.5* Lactic Acid: No lab exists for [...] documented in this encounter [facility] 06-02-2024 Note Hospitalist Progress Note 06/02/2024 Subjective: Admit Date: 05/30/2024 PCP: Chelle Troncoso MD Room#: B2-266/B2-266 A BRIEF HOSPITAL COURSE: 05/30Micdanika Reyes is a 68 y.o. male who presents to the emergency department from a group home facility for evaluation of nausea, vomiting, shortness [...] Acute kidney injury (HCC) 09/11/2015 CAD in [place] artery 08/08/2017 COPD (chronic obstructive pulmonary disease) (HCC) Developmental disorder Diabetes mellitus (HCC) Esophageal reflux Gastritis see EGD on 03/29/2016 GERD (gastroesophageal reflux disease) Hyperlipidemia IBS (irritable bowel syndrome) Mixed Obesity Osteoarthritis Pain management Plantar fasciitis, bilateral Unspecified sleep apnea Urinary retention LABS: CBC: Recent Labs 05/31/2440406/01/240 06/02/24 015 WBC 11.4* 9.1 7.5 RBC 3.41* 3.16* 3.11* HGB 9.8* 9.2* 8.9* HCT 33.8* 30.7* 29.6* MCV 99.1* 97.2 95.2 RDW 15.3* 15.4* 15.1* PLT 194 205 206 BMP: Recent Labs 05/31/2440406/01/240 06/02/24 015 NA 139 133* 136 K 4.8 [...] Patient Position: Lying) Pulse 60 Temp 36.1 ?C (97 ?F) (Temporal) Resp 17 Ht 6' (1.829 m) Wt 296 lb 11.2 oz (135 kg) SpO2 95% BMI 40.24 kg/m? Pulse Ox: SpO2 Av.3 % Min: 88 [...] daily mupirocin, 1 Application, Nasal, BID pancrelipase (Puc-Bjjq-Owkv), 1 capsule, Oral, TID WC pantoprazole, 40 [...] Reviewed 3 or more labs/studies ordered by (more content not included)... [facility] 06-02-2024 Telephone encounter Note Name of Caller: [facility] Physician requesting Consult: Laura Patient Location (facility name, room, bed number): [facility] Patient Diagnosis/Reason for Consult: Respiratory Failure on Bipap Provider being paged: James Time page was sent: 7:12 Department of provider being paged: Pulmonology Page Content: Inpatient Pulmonary [facility] resp failure on bipap Message sent via Secure Chat [facility] [employer] 06-02-2024 Miscellaneous Notes Name of Caller: [facility] Physician requesting Consult: Luara Patient Location (facility name, room, bed number): [facility] Patient Diagnosis/Reason for Consult: Respiratory Failure on Bipap Provider being paged: James Time page was sent: 7:12 Department of provider being paged: Pulmonology Page Content: Inpatient Pulmonary [facility] resp failure on bipap Message sent via Secure Chat documented in this encounter [facility] [employer] 06-02-2024 Note Formatting of this n ote might be different from the original. Pt transferred out to [facility] service from icu. [facility] Phone: 06-02-2024 Note Formatting of this n ote might be different from the original. Pt transferred out to [facility] service from icu. [facility] Phone: 06-02-2024 Plan of care note Problem: [...] Interventions Goal: Promote nutritional intake Outcome: Progressing [facility] 06-01-2024 Plan of care note Problem: [...] Interventions Goal: Promote nutritional intake Outcome: Progressing [facility] 06-01-2024 Note PHYSICAL THERAPY [facility] Initial Evaluation Name/MRN: James Reyes ([id number]) Evaluation Date: 06/01/2024 Date of : 1955 Admission Date: 05/30/2024 8:35 AM Age: 68 y.o. Room/Bed: 222-04/222-04 A Discharge Recommendation: [facility] Facility Equipment Needed: (TBD by facility) Assessment [...] benefit from skilled PT intervention to address limitationsand improve return to PLOF. Rec return to [...] Medical History: Diagnosis Date Acute kidney injury ([facility]) 09/11/2015 CAD in [place] artery 08/08/2017 COPD (chronic obstructive pulmonary disease) ([facility]) Developmental disorder Diabetes mellitus ([facility]) Esophageal reflux Gastritis see EGD on 03/29/2016 GERD (gastroesophageal reflux disease) Hyperlipidemia IBS (irritable bowel syndrome) Mixed Obesity Osteoarthritis Pain management Plantar fasciitis, bilateral Unspecified sleep apnea Urinary retention Past Surgical History: Past Surgical History: Procedure Laterality Date CHOLECYSTECTOMY 03/29/20162010 COLONOSCOPY 05/23/2017 COLONOSCOPY 03/29/2016, repeat in 10 years, Dr. Ness, normal except internal hemorrhoid COLONOSCOPY N/A 07/18/2022 Performed by David Chen MD at [facility] OR CORONARY ARTERY BYPASS GRAFT FOOT [...] bowel syndrome) 08/08/2017 Acute hypercapnic respiratory failure ([facility]) 05/30/2024 Closed head injury, initial encounter 11/29/2023 Uncontrolled type 2 diabetes mellitus with hyperglycemia, with long-term current use of insulin ([facility]) 10/30/2017 Uncontrolled type 2 diabetes mellitus with complication, with long-term current use of insulin 10/25/2017 Pseudomonas aeruginosa infection 10/20/2017 Sternal wound dehiscence 10/20/2017 director long term care (current) use of antibiotics 10/20/2017 Wound disruption, post-op, skin, initial encounter 10/16/2017 Dyslipidemia 08/08/2017 Knee osteoarthritis 08/08/2017 Insulin dependent diabetes mellitus 08/08/2017 MINERVA (obstructive sleep apnea) 08/08/2017 Tobacco abuse 08/08/2017 CAD in [place] artery 08/08/2017 Angina at rest ([facility]) 08/08/2017 Hypertensive heart disease 08/08/2017 COPD (chronic obstructive pulmonary disease) ([facility]) 08/08/2017 Chest pain 08/06/2017 Colitis, collagenous 06/15/2017 [...] events, decreased short term memory, and decreased long te (more content not included)... [facility] 06-01-2024 Note ICU Progress Note Name: James Reyes : 1955(68 y.o.) Date: 06/01/24 Team: MICU Attending: ANDRES Assessment and Plan: Severe sepsis Acute hypoxemic respir failure Respir acidosis AECOPD MINERVA JESSIKA -- Cr improved today NAGMA -- improved Leukocytosis -- resolved T2DM uncontrolled w/ hyperglycemia Anemia (chronic, normocytic) -- stable CAD w/ h/o CABG 2014. Body mass index is 40.69 kg/m?. Morbid obesity Wean HHFNC today. Trial on [...] (06/01/24 1101) Arterial BP MAP Temp 36.8 ?C (98.3 ?F) (06/01/24 1101) Pulse 66 (06/01/24 1213) Resp 18 (06/01/24 1213) SpO2 92 % (06/01/24 1213) Weight 135 kg (296 lb 11.2 oz) (05/30/24 190) BMI Body mass index is 40.24 kg/m?. Physical Exam Vitals and nursing note reviewed. [...] Perception: Attention normal. Behavior: Behavior is cooperative. [facility] 06-01-2024 Note Problem: Potential f or Compromised Skin Integrity Goal: Nutritional status is improving Outcome: Progressing Problem: Urinary Incontinence Goal: Perineal skin integrity is maintained or improved Outcome: Progressing [facility] 06-01-2024 Plan of care note Problem: Potential for Compromised Skin Integrity Goal: Nutritional status is improving Outcome: Progressing Problem: Urinary Incontinence Goal: Perineal skin integrity is maintained or improved Outcome: Progressing [facility] 05-31-2024 Note Formatting of this n ote might be different from the original. Return referral placed to [facility] via [facility] per TCC request. Await review and response regarding ability to accept. TCC notified. [facility] 05-31-2024 Note Formatting of this n ote might be different from the original. Return referral placed to [facility] via [facility] per TCC request. Await review and response regarding ability to accept. TCC notified. [facility] 05-31-2024 Note Return referral plac ed to [facility] via [facility]port per TCC request. Await review and response regarding ability to accept. TCC notified. [facility] 05-31-2024 Note Formatting of this n ote might be different from the original. Inpatient status from [facility] with acute hypercapnic resp failure. Admitted to ICU for NIV. Currently requiring high flow oxygen 60% fio2 and 40 liters. Receiving iv antibiotics, iv steroids, scheduled aerosols, and ss insulin coverage. 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 Anticipated discharge plan is to return to [facility] when medically stable. [facility] 05-31-2024 Note Formatting of this n ote might be different from the original. Inpatient status from [facility] with acute hypercapnic resp failure. Admitted to ICU for NIV. Currently requiring high flow oxygen 60% fio2 and 40 liters. Receiving iv antibiotics, iv steroids, scheduled aerosols, and ss insulin coverage. 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 Anticipated discharge plan is to return to [facility] when medically stable. [facility] 05-31-2024 Note ICU Progress Note Name: James Reyes : 1955(68 y.o.) Date: 05/31/24 Team: MICU Attending: ANDRES Assessment and Plan: Severe sepsis Acute hypoxemic respir failure Respir acidosis AECOPD MINERVA JESSIKA NAGMA Leukocytosis T2DM uncontrolled w/ hyperglycemia Anemia (chronic, normocytic) CAD w/ h/o CABG 2014. Body mass index is 40.69 kg/m?. Morbid obesity Can trial off of NIV [...] Objective: Last Vitals: BP MAP 130/63 (05/31/24 09) 82 (05/31/24902) Arterial BP MAP Temp 36.7 ?C (98 ?F) (05/31/24802) Pulse 85 (05/31/24902) Resp 20 (05/31/24902) SpO2 97 % (05/31/24802) Weight 135 kg (296 lb 11.2 oz) (05/30/241900) BMI Body mass index is 40.24 kg/m?. Physical Exam Vitals and nursing note reviewed. [...] Perception: Attention normal. Behavior: Behavior is cooperative. [facility] 05-31-2024 Plan of care note Problem: Knowledge [...] remains patent Outcome: Progressing [facility] 05-30-2024 Note Patient currently on NIV, smoking cessation counseling held at this time. [facility] 05-30-2024 History and physical note CCM consult on 05/30/24 serves as H&P [facility] 05-30-2024 Note CCM consult on 05/30 serves as H&P [facility] 05-30-2024 History and physical note CCM consult on 05/30/24 serves as H&P documented in this encounter [facility] 05-30-2024 Consult note Formatting of th [...] creatinine, and vancomycin levels interfaced automatically to [employer] and data has been analyzed and interpreted. [...] Gasca RPh Pharmacist Available via Secure Chat [employer] 05-30-2024 Emergency department Note Report given to [employer] INST[employer]ER [employer] 05-30-2024 Emergency department Note Report given to AUTOMOBILE ACCESSORIES INSTALLER [facility] ICU 2 [...] Acute kidney injury (HCC) 09/11/2015 CAD in [place] artery 08/08/2017 COPD (chronic obstructive pulmonary disease) ([facility]) Developmental disorder Diabetes mellitus ([facility]) Esophageal reflux Gastritis see EGD on 03/29/2016 [...] mouth daily. ergocalciferol (Vitamin D-2) 1.25 MG (34870 UT) capsule Take 1.25 mg by mouth [...] for chest pain. nystatin (Mycostatin) cream pancrelipase, Jor-Dqom-Xmdf, (Creon) 72760-69092 units capsule Take by mouth 3 times [...] attack Mother 61.00 Heart disease Father Other ([id number]) Brother accident Coronary artery disease Father Diabetes [...] Abnormal Glucose 247 (*) Narrative: Performed by: [facility], [address] [place], [place] [id number] CLIA ID: [id number] SARS-COV-2, FLU A/B, AND RSV COMBO - [...] In compliance with this authorization, please visit www.fda.gov/media/902337/download or www.fda.gov/media/817551/download to access the applicable information sheets. LACTIC [...] Procedure Abnormality Status --------- ------ Legionella and Streptoco...[[id number]] Urine Hold Cup[[id number]] Please view results for these tests on the individual orders. MRSA BY PCR LEGIONELLA AND STREPTOCOCCUS URINE ANTIGEN BLOOD GAS ARTERIAL HIGH SENSITIVITY TROPONIN, SERIAL, THIRD TEST COMPLETE URINALYSIS WITH REFLEX TO CULTURE Narrative: The following orders were created for panel order Complete Urinalysis with reflex to Culture. Procedure Abnormality Status --------- ------ Complete Urinalysis[[id number]] Please view results for these tests on [...] (has no administration in time range) pancrelipase (Wcx-Uidx-Syuf) (Creon) [id number] units per capsule 1 capsule (has no [...] specified. DISCHARGE MEDICATIONS: Current Discharge Medication List @[facility]([id number]:LAST:1)@ (Comment: Please notethis report has been produced [...] presents to the emergency department from a group home facility for evaluation of nausea, vomiting, shortness [...] Acute kidney injury (HCC) 09/11/2015 CAD in [place] artery 08/08/2017 COPD (chronic obstructive pulmonary disease) [...] 07/18/2022 Performed by David Chen MD at [facility] OR CORONARY ARTERY BYPASS GRAFT FOOT [...] mouth daily. ergocalciferol (Vitamin D-2) 1.25 MG (29399 UT) capsule Take 1.25 mg by mouth [...] for chest pain. nystatin (Mycostatin) cream pancrelipase, Mau-Vxvx-Ffda, (Creon) [id number] units capsule Take by mouth 3 times daily (with meals). tiotropium (Spiriva) [address] 1 capsule into inhaler and inhale in the morning. 2 puffs. ALLERGIES Penicillins and Tetracyclines & related FAMILY HISTORY Family History Problem Relation Name Age of Onset Heart attack Mother 61.00 Heart disease Father Other ([id number]) Brother accident Coronary artery disease Father Diabetes [...] Glucose 247 (*) Narrative: Performed by: [facility], [address] [place] [id number] CLIA ID: [id number] SARS-COV-2, FLU A/B, AND RSV COMBO - [...] In compliance with this authorization, please visit www.fda.gov/media/031125/download or www.fda.gov/media/425690/download to access the applicable information sheets. BLOOD [...] Procedure Abnormality Status --------- ------ Legionella and Streptoco...[[id number]] Urine Hold Cup[[id number]] Please view results for these tests on the individual orders. MRSA BY PCR LEGIONELLA AND STREPTOCOCCUS URINE ANTIGEN COMPLETE URINALYSIS WITH REFLEX TO CULTURE Narrative: The following orders were created for panel order Complete Urinalysis with reflex to Culture. Procedure Abnormality Status --------- ------ Complete Urinalysis[[id number]] Please view results for these tests on [...] (150 mg Oral Given 05/30/24 1353) pancrelipase (Blo-Owbp-Stux) (Creon) [id number] units per capsule 1 capsule (1 capsule [...] given steroids and breathing treatments placed on monitoring manager. nursing notes and medical records reviewed, PMH of CAD, stable angina, IBS, HLD, type 2 diabetes, HTN, COPD. Differential considerations included electrolyte derangement versus ACS versus DC versus PE versus pneumonia versus acidosis Initial [...] documented in this encounter [facility] 05-30-2024 Consult note Formatting of th is note is different from the original. Internal Medicine: MICU Initial Consult James Joyce Reyes : 1955(68 y.o.) Date: May 30, [...] Acute kidney injury (HCC) 09/11/2015 CAD in [place] artery 08/08/2017 COPD (chronic obstructive pulmonary disease) [...] 07/18/2022 Performed by David Chen MD at [facility] OR CORONARY ARTERY BYPASS GRAFT FOOT [...] attack Mother 61.00 Heart disease Father Other ([id number]) Brother accident Coronary artery disease Father Diabetes [...] mg by mouth 2 times daily. Historical ProviderMD dicyclomine (Bentyl) 10 MG capsule Take 10 mg by mouth 3 times daily. 02/01/23 Historical ProviderMD empagliflozin (Jardiance) 25 MG Take 25 mg by mouth daily. Historical ProviderMD ergocalciferol (Vitamin D-2) 1.25 MG (31500 UT) capsule Take 1.25 mg by mouth [...] mg by mouth 2 times daily. Historical ProviderMD nitroglycerin (Nitrostat) 0.[address] 0.4 mg under the tongue every 5 minutes as needed for chest pain. Historical Provider, nystatin (Mycostatin) cream 11/08/22 Historical Provider, pancrelipase, Klt-Xuun-Bkjb, (Creon) [id number] units capsule Take by mouth 3 times [...] -- RDW 15.5* -- ABGs: Recent Labs 05/30/2437 PHART 7.290* [id number] 50.7* PO2ART 64.1* DNI8DZI 23.8 [id number] 89.5* Lactic Acid: No lab exists for [...] other team members and physicians, excluding procedures. [facility] [employer] 05-30-2024 Emergency department Triage note Pt arrived via EMS from [facility]. Co coffee ground emesis upon arrival EMS noted 70% SpO2.EMS placed nasal cannula at 4L. Noted 80%. Moved to NRB at 90% SPO2. EMS placed line and 1 breathing tx . Placed in bed. Provider and EKG at bedside. Vials assessed. Continue with plan of care. [facility] [employer] 05-30-2024 Physician Emergency department Note [facility] ICU 2 [...] Acute kidney injury (HCC) 09/11/2015 CAD in [place] artery 08/08/2017 COPD (chronic obstructive pulmonary disease) [...] mouth daily. ergocalciferol (Vitamin D-2) 1.25 MG (09000 UT) capsule Take 1.25 mg by mouth [...] for chest pain. nystatin (Mycostatin) cream pancrelipase, Ozr-Plyk-Wloh, (Creon) 08451-03642 units capsule Take by mouth 3 times [...] attack Mother 61.00 Heart disease Father Other ([id number]) Brother accident Coronary artery disease Father Diabetes [...] Abnormal Glucose 247 (*) Narrative: Performed by: [facility], [address] [place] [address] CLIA ID: [id number] SARS-COV-2, FLU A/B, AND RSV COMBO - [...] In compliance with this authorization, please visit www.fda.gov/media/545423/download or www.fda.gov/media/815710/download to access the applicable information sheets. LACTIC [...] Procedure Abnormality Status --------- ------ Legionella and Streptoco...[[id number]] Urine Hold Cup[[id number]] Please view results for these tests on the individual orders. MRSA BY PCR LEGIONELLA AND STREPTOCOCCUS URINE ANTIGEN BLOOD GAS ARTERIAL HIGH SENSITIVITY TROPONIN, SERIAL, THIRD TEST COMPLETE URINALYSIS WITH REFLEX TO CULTURE Narrative: The following orders were created for panel order Complete Urinalysis with reflex to Culture. Procedure Abnormality Status --------- ------ Complete Urinalysis[[id number]] Please view results for these tests on [...] (has no administration in time range) pancrelipase (Cuj-Jilb-Hmqm) (Creon) [id number] units per capsule 1 capsule (has no [...] specified. DISCHARGE MEDICATIONS: Current Discharge Medication List @[facility]([id number]:LAST:1)@ (Comment: Please notethis report has been produced [...] Emergency Physician Arsh Mar MD 05/30/24 1312 [facility] 05-30-2024 Physician Emergency department Note EMERGENCY [...] presents to the emergency department from a group home facility for evaluation of nausea, vomiting, shortness [...] Acute kidney injury (HCC) 09/11/2015 CAD in [place] artery 08/08/2017 COPD (chronic obstructive pulmonary disease) [...] 07/18/2022 Performed by David Chen MD at [facility] OR CORONARY ARTERY BYPASS GRAFT FOOT [...] mouth daily. ergocalciferol (Vitamin D-2) 1.25 MG (72554 UT) capsule Take 1.25 mg by mouth [...] for chest pain. nystatin (Mycostatin) cream pancrelipase, Fov-Lwgl-Xrwt, (Creon) 47817-43353 units capsule Take by mouth 3 times daily (with meals). tiotropium (Spiriva) [address] 1 capsule into inhaler and inhale in the morning. 2 puffs. ALLERGIES Penicillins and Tetracyclines & related FAMILY HISTORY Family History Problem Relation Name Age of Onset Heart attack Mother 61.00 Heart disease Father Other ([id number]) Brother accident Coronary artery disease Father Diabetes [...] Homeless in the Last Year: No SCREENINGS Marlin Coma Scale Best Eye Response: Spontaneous Best [...] Glucose 247 (*) Narrative: Performed by: [facility], [address] [place] [address] CLIA ID: [id number] SARS-COV-2, FLU A/B, AND RSV COMBO - [...] In compliance with this authorization, please visit www.fda.gov/media/113542/download or www.fda.gov/media/577318/download to access the applicable information sheets. BLOOD [...] Procedure Abnormality Status --------- ------ Legionella and Streptoco...[[id number]] Urine Hold Cup[[id number]] Please view results for these tests on the individual orders. MRSA BY PCR LEGIONELLA AND STREPTOCOCCUS URINE ANTIGEN COMPLETE URINALYSIS WITH REFLEX TO CULTURE Narrative: The following orders were created for panel order Complete Urinalysis with reflex to Culture. Procedure Abnormality Status --------- ------ Complete Urinalysis[[id number]] Please view results for these tests on the individual orders. URINE HOLD CUP COMPLETE URINALYSIS All other labs were within normal range or not returned as of this dictation. EMERGENCY DEPARTMENT COURSE and DIFFERENTIAL DIAGNOSIS/MDM: Vitals: Vitals: 05/30/24 1300 05/30/24 1400 05/30/24 1500 05/30/24 1600 BP: 97/65 113/64 108/62 116/63 BP Location: Patient Position: Pulse: 98 90 98 92 Resp: 12 16 Temp: TempSrc: SpO2: 99% 94% [...] 40 mg (40 mg Oral Given 05/30/24 135) acetaminophen (Tylenol) tablet 1,000 mg (has no [...] 150 mg (150 mg Oral Given 05/30/24 135) pancrelipase (Fxf-Xysx-Cemv) (Creon) [id number] units per capsule 1 capsule (1 capsule Oral Not Given 05/30/24 1338) tamsulosin (Flomax) 24 hr capsule 0.4 mg (0.4 mg Oral Given 05/30/24 135) carvedilol (Coreg) tablet 6.25 mg (has no [...] 3 mL (3 mL Nebulization Given 05/30/24 0944) methylPREDNISolone sod suc (PF) (SOLU-Medrol) 40 MG [...] given steroids and breathing treatments placed on monitoring manager. nursing notes and medical records reviewed, PMH of CAD, stable angina, IBS, HLD, type 2 diabetes, HTN, COPD. Differential considerations included electrolyte derangement versus ACS versus DC versus PE versus pneumonia versus acidosis Initial [...] Mar MD at 05/30/2024 5:23 PM EST [facility] Phone: 05-13-2024 History of Present illness Narrative [...] culture 100k proteus 03/08/24-creat 1.01 bun 22 1/27/25-IOV-inc urge despite flomax and proscar. Noct x [...] Acute kidney injury (HCC) 09/11/2015 CAD in [place] artery 08/08/2017 COPD (chronic obstructive pulmonary disease) ([facility]) Developmental disorder Diabetes mellitus ([facility]) Esophageal reflux Gastritis see EGD on 03/29/2016 GERD (gastroesophageal reflux disease) Hyperlipidemia IBS (irritable bowel syndrome) Mixed Obesity Osteoarthritis Pain management Plantar fasciitis, bilateral Unspecified sleep apnea Urinary retention Past Surgical History: Past Surgical History: Procedure Laterality Date CHOLECYSTECTOMY 03/29/20162010 COLONOSCOPY 05/23/2017 COLONOSCOPY 03/29/2016, repeat in 10 years, Dr. Ness, normal except internal hemorrhoid COLONOSCOPY N/A 07/18/2022 Performed by David Chen MD at [facility] OR CORONARY ARTERY BYPASS GRAFT FOOT [...] 3 times daily. 07/28/21 Yes Historical Provider, Adv Diskus 250-50 MCG/ACT aerosol powder 01/21/23 Yes [...] Historical Provider, ergocalciferol (Vitamin D-2) 1.25 MG (86111 UT) capsule Take 1.25 mg by mouth [...] for mild pain (1-3). Yes Historical Provider, Incdia Ellipta 62.5 MCG/ACT inhalation Inhale 1 puff [...] (Mycostatin) cream 11/08/22 Yes Historical Provider, pancrelipase, Hal-Qhzn-Klye, (Creon) [id number] units capsule Take by mouth 3 times [...] attack Mother 61.00 Heart disease Father Other ([id number]) Brother accident Coronary artery disease Father Diabetes [...] documented in this encounter [facility] 05-02-2024 Note Aydee from [facility] in [place] called to schedule the patient an appt for incontinence and frequency. They will fax over a referral and notes for the pt. Appt scheduled 05/13/[address] Marino in [place]. [facility] 05-02-2024 Telephone encounter Note Aydee from [facility] in [place] called to schedule the patient an appt for incontinence and frequency. They will fax over a referral and notes for the pt. Appt scheduled 05/13/[address] Marino in [place]. [facility] 05-02-2024 Miscellaneous Notes Aydee from [facility] in [place] called to schedule the patient an appt for incontinence and frequency. They will fax over a referral and notes for the pt. Appt scheduled 05/13/[address] Marino in [place]. documented in this encounter [facility] 03-08-2024 History of Present illness Narrative Images from the original note were not included. [facility] CARD[facility] [address] [address] Dept: [phone] Dept Visit type: Established : 1955 Reason for Visit: 6 Month Follow-up Assessment and Plan Coronary artery disease involving coronary bypass graft of northwestern shoshone heart with chest pain. Bypass surgery in [...] Intolerant to CPAP Mildly dilated Aorta Echo 11/30/2023orta: Normal sized sinuses of Valsalva. Mildly dilated [...] coronary artery disease, previous bypass surgery in 2015 and hyperlipidemia. He also has history of [...] mouth daily. ergocalciferol (Vitamin D-2) 1.25 MG (09575 UT) capsule Take 1.25 mg by mouth [...] for chest pain. nystatin (Mycostatin) cream pancrelipase, Ouc-Qmgd-Eqnm, (Creon) 87393-60293 units capsule Take by mouth 3 times [...] Acute kidney injury (HCC) 09/11/2015 CAD in northwestern shoshone artery 08/08/2017 COPD (chronic obstructive pulmonary disease) ([facility]) Developmental disorder Diabetes mellitus (HCC) Esophageal reflux [...] 07/18/2022 Performed by David Chen MD at [facility] OR CORONARY ARTERY BYPASS GRAFT FOOT [...] attack Mother 61.00 Heart disease Father Other ([id number]) Brother accident Coronary artery disease Father Diabetes [...] documented in this encounter [facility] 03-08-2024 Instructions PATRICIA Mills CNP - [...] ( low- to moderate grade) Office number [phone] documented in this encounter [facility] 12-05-2023 Hospital course Narrative Images from [...] Acute kidney injury (HCC) 09/11/2015 CAD in northwestern shoshone artery 08/08/2017 COPD (chronic obstructive pulmonary disease) [...] Pt was walking with his rollator on [address] to go get cigarettes. Pt lost his [...] CALCIUM 8.4 8.6 8.6 Recent Labs 12/03/23 0512/04/23 0238 12/05/23 0148 WBC 4.2 4.1 4.5 [...] Commonly known as: Bentyl ergocalciferol 1.25 MG (28999 UT) capsule Commonly known as: Vitamin D-2 [...] nystatin cream Commonly known as: Mycostatin pancrelipase (Shd-Nsal-Wdfd) 81374-02307 units capsule Commonly known as: Creon pregabalin [...] Your Medications These medications were sent to [facility] - [place], [place] - [address] [facility] [address], [place] [address] cefdinir 300 MG capsule You can get these medications from any pharmacy Bring a paper prescription for each of these medications pregabalin 150 MG capsule Recommended Follow-up: No follow-up provider specified. Complexity of Follow up: [] Moderate Complexity: follow up within 7-14 calendar days (81689) [x] Severe Complexity: follow up within 7 calendar days (02682) Follow up Testing, Pending results or Referrals [...] MD Division of Hospitalist Medicine Inpatient Medical Services/[facility] 12/05/2023, 4:56 PM documented in this encounter [facility] 12-05-2023 History of Present illness Narrative Images from the original note were not included. PHYSICAL THERAPY [facility] Name/MRN: James Reyes ([id number]) Date: 12/05/2023 Attempted treatment at 1201, pt sitting EOB, stating that he is going to [facility] later today, politely declining therapy at this time. Benjie Torres, PT Images from the original note were not included. PHYSICAL THERAPY [facility] Name/MRN: James Reyes ([id number]) Date: 12/04/2023 Attempted PT. Pt was sleeping soundly. Will re-attempt PT at later time/date as schedule permits. Heather Berkowitz, MANAGER SPORTS Images from the original note were not included. OCCUPATIONAL THERAPY [facility] Initial Evaluation Name/MRN: James Reyes ([id number]) Evaluation Date: 12/04/2023 Date of : 1955 Admission Date: 11/29/2023 3:34 PM Age: 68 y.o. Room/Bed: W4436/W4436 A Discharge Recommendation: [facility] Facility Assessment IMPRESSION: ADL activity is limited [...] times. C/o pain in "tailbone" and back. technical buyer in room notified to handoff to RN. Pain: Powers-Mathew Pain Ratin = Hurts little more 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 COPD (chronic obstructive pulmonary disease) ([facility]) Developmental disorder Diabetes mellitus ([facility]) Esophageal reflux Gastritis see EGD on 03/29/2016 [...] hyperglycemia, with long-term current use of insulin ([facility]) 10/30/2017 Uncontrolled type 2 diabetes mellitus with complication, with long-term current use of insulin 10/25/2017 Pseudomonas aeruginosa infection 10/20/2017 Sternal wound dehiscence 10/20/2017 director long term care (current) use of antibiotics 10/20/2017 Wound disruption, post-op, skin, initial encounter 10/16/2017 Dyslipidemia 08/08/2017 Knee osteoarthritis 08/08/2017 Insulin dependent diabetes mellitus 08/08/2017 MINERVA (obstructive sleep apnea) 08/08/2017 Tobacco abuse 08/08/2017 CAD in northwestern shoshone artery 08/08/2017 Angina at rest ([facility]) 08/08/2017 Hypertensive heart disease 08/08/2017 COPD (chronic obstructive pulmonary disease) ([facility]) 08/08/2017 Chest pain 08/06/2017 Colitis, collagenous 06/15/2017 Anemia 05/23/2017 Gastroesophageal reflux disease without esophagitis 05/23/2017 Colitis 05/21/2017 Esophagitis, reflux 04/26/2017 Type 2 diabetes, uncontrolled, with neuropathy 04/26/2017 Hiatal hernia 02/21/2017 Arthritis of foot, degenerative 01/09/2017 Enlarged prostate with lower urinary tract symptoms (LUTS) 09/07/2016 Morbid obesity ([facility]) 08/12/2016 Shoulder pain, left 10/23/2014 Knee pain, [...] otherwise WFL Social/Functional History Patient admitted from [facility]. Assistive Equipment: rollator Prior Level of Function ADL Assistance: Reports assist PRN Ambulation Assistance: Independent rollator Transfer Assistance: Independent Objective ADLs LE Dressing: Dependent, Socks Toileting: Dependent, Standing at bedside, posterior hygiene due to soiled pads. OT addressing static balance/posture and safety managing rollator (pt adamant about using rollator to stand versus walker). technical buyer present to assist with hygiene. LEs buckling. [...] to eat lunch meal per pt request. technical buyer aware and confirming pt has been sitting [...] of Care supervision is transferred to a [facility] Therapy Services Occupational Therapist. Goals and/or treatment plan was established in collaboration with patient/family/other representatives. Pretty Daley OTR/L Hospitalist Progress Note 12/04/2023 Subjective: Admit Date: 11/29/2023 PCP: No primary care provider on file. [facility] A BRIEF HOSPITAL COURSE: James is a 68 y.o. male with past medical history below who presents with chief complaint listed above. Pt was walking with his rollator on [address] to go get cigarettes. Pt lost his [...] Acute kidney injury (HCC) 09/11/2015 CAD in [place] artery 08/08/2017 COPD (chronic obstructive pulmonary disease) [...] PLT 171 165 167 BMP: Recent Labs 12/02/23 03212/03/23 0525 12/04/23 0238 NA 137 139 138 K 4.1 3.9 4.2 CL 113* 114* 114* CO2 18* 20* 19* BUN 23* 19 18 CREATININE 1.00 0.93 0.93 GLUCOSE 216* 134* 90 CALCIUM 8.5 8.4 8.6 ANIONGAP 5 5 5 LIVER PROFILE: Recent Labs 12/02/23 0329 12/03/23 0525 12/04/23 0238 AST 16 13* 14* [...] Oral, Daily cholestyramine, 1 packet, Oral, TID cilostazol, 50 mg, Oral, BID cyanocobalamin, 1,000 mcg, IntraMUSCular, q30 days dicyclomine, 10 mg, Oral, TID enoxaparin, 40 mg, SubCUTAneous, Daily ezetimibe, 10 mg, Oral, Nightly famotidine, 20 mg, Oral, Daily finasteride, 5 mg, Oral, Daily fluticasone, 1 spray, Each Nostril, Daily insulin glargine, 48 Units, SubCUTAneous, Daily Insulin Lispro, 16 Units, SubCUTAneous, TID mometasone-formoterol, 2 puff, Inhalation, BID pancrelipase (Xcm-Nfvv-Bdsf), 2 capsule, Oral, TID WC pregabalin, 150 [...] Ucx - Medically stable for discharge to [facility] - am labs, replace lytes prn - [...] Strickland MD Division of Hospitalist Medicine Acute [facility] Hospitalist Progress Note 12/03/2023 Subjective: Admit Date: 11/29/2023 PCP: No primary care provider on file. Room#: W4-436/W4436 A BRIEF HOSPITAL COURSE: James is a 68 y.o. male with past medical history below who presents with chief complaint listed above. Pt was walking with his rollator on [address] to go get cigarettes. Pt lost his [...] Acute kidney injury (HCC) 09/11/2015 CAD in [place] artery 08/08/2017 COPD (chronic obstructive pulmonary disease) (HCC) Developmental disorder Diabetes mellitus (HCC) Esophageal reflux Gastritis see EGD on 03/29/2016 GERD (gastroesophageal reflux disease) Hyperlipidemia IBS (irritable bowel syndrome) Mixed Obesity Osteoarthritis Pain management Plantar fasciitis, bilateral Unspecified sleep apnea Urinary retention LABS: CBC: Recent Labs 12/01/23 0539 08/17/32812/03/23 0525 WBC 4.3 4.6 4.2 RBC 3.48* 3.47* 3.36* HGB 10.4* 10.5* 10.2* HCT 33.3* 33.7* 32.5* MCV 95.7 97.1 96.7 RDW 15.7* 15.7* 15.4* PLT 173 171 165 BMP: Recent Labs 12/01/23 0539 12/02/2332812/03/23 0525 NA 138 137 139 K 4.1 4.1 3.9 CL 114* 113* 114* CO2 19* 18* 20* BUN 25* 23* 19 CREATININE 1.08 1.00 0.93 GLUCOSE 137* 216* 134* CALCIUM 8.6 8.5 8.4 ANIONGAP 5 5 5 LIVER PROFILE: Recent Labs 12/01/2353812/02/2332812/03/23 0525 AST 20 16 13* ALT 15 [...] WC mometasone-formoterol, 2 puff, Inhalation, BID pancrelipase (Ecn-Ooub-Dgxx), 2 capsule, Oral, TID WC pregabalin, 150 [...] Flori Strickland MD Division of Hospitalist Medicine [facility] Nutrition Assessment Type and Reason for [...] Acute kidney injury (HCC) 09/11/2015 CAD in [place]western shosh[place] artery 08/08/2017 COPD (chronic obstructive pulmonary disease) [...] 07/18/2022 Performed by David Chen MD at [facility] OR CORONARY ARTERY BYPASS GRAFT FOOT [...] Pt was walking with his rollator on [address] to go get cigarettes. Pt lost his [...] DC - awaiting SNF placement. CAD in northwestern shoshone artery. HTN controlled w/ Coreg. Dyslipidemia wir [...] DC - awaiting SNF placement. CAD in northwestern shosh[place] artery. HTN controlled w/ Coreg. Dyslipidemia w/ [...] On: Kcal/kg Weight Used for Energy Requirements: [place] Weight for Energy Calculation (kg): 86 kg Total Energy Requirements (kcals/day): 2580 Weight Used for Protein Requirements: [place] Weight in Kg Used for Protein Requirements: [...] History: Independent of feeding and Resides at [facility] Intake/Output Summary (Last 24 hours) [...] WC mometasone-formoterol, 2 puff, Inhalation, BID pancrelipase (Ajg-Qfrw-Iola), 2 capsule, Oral, TID WC pregabalin, 150 mg, Oral, BID tamsulosin, 0.4 mg, Oral, BID tiotropium, 2 puff, Inhalation, Daily sodium chloride, 50 mL/hr, Last Rate: 50 mL/hr (12/03/23 0842) BMP: Recent Labs 12/01/23 0539 12/02/23 03212/03/23 0525 NA 138 137 139 K 4.1 [...] FREET4 1.11 04/13/2022 VITD25 24 (L) 12/02/2023 [id number] 167 (L) 11/30/2023 FOLATE 3.7 11/30/2023 Lab [...] kg (279 lb) Weight Source: Bed Scale [place] Body Weight (lbs) (Calculated): 190 lbs [place] Body Weight (Kg) (Calculated): 86 kg BMI [...] Debbie Whipple MS, RD, LD Contact: or Roombeats Chat (dial *[phone] from hospital phone) Hospitalist Progress Note 12/02/2023 Subjective: Admit Date: 11/29/2023 PCP: No primary care provider on file. Room#: W4-436/W4436 A BRIEF HOSPITAL COURSE: James is a 68 y.o. male with past medical history below who presents with chief complaint listed above. Pt was walking with his rollator on [address] [place] to go get cigarettes. Pt lost his [...] Acute kidney injury (HCC) 09/11/2015 CAD in [place] artery 08/08/2017 COPD (chronic obstructive pulmonary disease) [...] PROT 5.7* 5.6* 5.5* PT/INR: Recent Labs 11/29/236 PROTIME 10.9 INR 1.0 CARDIAC ENZYMES: Recent [...] WC mometasone-formoterol, 2 puff, Inhalation, BID pancrelipase (Oco-Zhep-Zhar), 2 capsule, Oral, TID WC pregabalin, 150 [...] MD Division of Hospitalist Medicine Acute Care [facility] Neuro Critical Care / stroke Attending [...] original note were not included. PHYSICAL THERAPY [facility] Initial Evaluation Name/MRN: James Reyes ([id number]) Evaluation Date: 12/01/2023 Date of : 1955 Admission Date: 11/29/2023 3:34 PM Age: 68 y.o. [facility] A Discharge Recommendation: [facility] Facility Assessment IMPRESSION: pt is 68 year [...] Acute kidney injury (HCC) 09/11/2015 CAD in northwestern sh[place] artery 08/08/2017 COPD (chronic obstructive pulmonary disease) [...] 07/18/2022 Performed by David Chen MD at [facility] OR CORONARY ARTERY BYPASS GRAFT FOOT [...] hyperglycemia, with long-term current use of insulin ([facility]) 10/30/2017 Uncontrolled type 2 diabetes mellitus with complication, with long-term current use of insulin 10/25/2017 Pseudomonas aeruginosa infection 10/20/2017 Sternal wound dehiscence 10/20/2017 director long term care (current) use of antibiotics 10/20/2017 Wound disruption, post-op, skin, initial encounter 10/16/2017 Dyslipidemia 08/08/2017 Knee osteoarthritis 08/08/2017 Insulin dependent diabetes mellitus 08/08/2017 MINERVA (obstructive sleep apnea) 08/08/2017 Tobacco abuse 08/08/2017 CAD in northwestern shoshone artery 08/08/2017 Angina at rest (HCC) 08/08/2017 Hypertensive heart disease 08/08/2017 COPD (chronic obstructive pulmonary disease) ([facility]) 08/08/2017 Chest pain 08/06/2017 Colitis, collagenous 06/15/2017 [...] Hearing: normal Social/Functional History Patient admitted from [facility]. 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 Mod cues for upright posture, to keep [...] of Care supervision is transferred to a [facility] Therapy Services Physical Therapist. Goals and/or treatment plan was established in collaboration with patient/family/other representatives. Hospitalist Progress Note 12/01/2023 Subjective: Admit Date: 11/29/2023 PCP: No primary care provider on file. [facility]#: [facility] A BRIEF HOSPITAL COURSE: James is a 68 y.o. male with past medical history below who presents with chief complaint listed above. Pt was walking with his rollator on [address] [place] to go get cigarettes. Pt lost his [...] Acute kidney injury (HCC) 09/11/2015 CAD in [place]western shosh[place] artery 08/08/2017 COPD (chronic obstructive pulmonary disease) [...] WC mometasone-formoterol, 2 puff, Inhalation, BID pancrelipase (Xbm-Xfqy-Dpxr), 2 capsule, Oral, TID WC pregabalin, 150 mg, Oral, BID tamsulosin, 0.4 mg, Oral, BID tiotropium, 2 puff, Inhalation, Daily PRN medications: acetaminophen OR acetaminophen, albuterol, bisacodyl, dextrose, dextrose, glucagon (rDNA), glucose, labetalol, methyl salicylate-menthol, naloxone, ondansetron ODT OR ondansetron, oxyCODONE-acetaminophen, polyethylene glycol (PEG) 3350 Continuous sodium chloride, 50 mL/hr, Last Rate: 50 mL/hr (11/30/236) Assessment Data: (CAT1) Reviewed 3 or more [...] Flori Strickland MD Division of Hospitalist Medicine [facility] Respiratory Care Department Progress Note As [...] original note were not included. OCCUPATIONAL THERAPY [facility] Name/MRN: James Reyes ([id number]) Date: 11/30/2023 Returned to attempt Eval at 13:45 spoke to RN who stated patient is going to be leaving floor for an MRI very shortly and not to see patient at this time. OT will return to evaluate as schedule permits. Darlin Corea OT Images from the original note were not included. PHYSICAL THERAPY [facility] Name/MRN: James Reyes ([id number]) Date: 11/30/2023 Multiple attempts made throughout the day, pt receiving echo, lunch, and OOR. Will attempt as able. Kyle Moreland PT Speech-Language Pathology Patient passed the Nursing Swallowing Screening and is on a Regular diet, Cardiac: Low fat, Low cholesterol. High Fiber, DEBBIE with Thin liquids. Completed speech orders as per stroke protocol. Images from the original note were not included. OCCUPATIONAL THERAPY [facility] Name/MRN: James Reyes ([id number]) Date: 11/30/2023 Performed chart review. Attempted OT eval 10:59 patient is getting Echo completed bedside. Will return to evaluate as schedule permits. Darlin Corea OT Patient seen and examined at bedside. Refer to Dr. King H&P for further details. See new orders. Flori Strickland MD Division of Hospitalist Medicine [facility] documented in this encounter [facility] 12-05-2023 Nurse Note Wound Care consulted for Pressure Injury Prevention. Pt's Yang score= 14 on 12/04 Pt's pressure points assessed. Pt's Heels, Buttocks/coccyx, Back, Elbows, Occiput and ears all intact. Pt sitting on edge of bed eating lunch. Prevention Measures in place, including: [place] sheet with pillows, Heels elevated off bed on pillows, Zinc/Moisture Barrier ointment, Waffle chair cushion (obtained for pt). Skin Care precaution order set in place. Dietitian consult N/A, subscore=3. PT consult in place. Will continue to follow pt. Please Voicera for any questions or concerns. Liz Keane RN, BSN, CWCN [facility] 12-05-2023 Nurse Note Wound Care consulted for Pressure Injury Prevention. Pt's Yang score= 14 on 12/04 Pt's pressure points assessed. Pt's Heels, Buttocks/coccyx, Back, Elbows, Occiput and ears all intact. Pt sitting on edge of bed eating lunch. Prevention Measures in place, including: [place] sheet with pillows, Heels elevated off bed on pillows, Zinc/Moisture Barrier ointment, Waffle chair cushion (obtained for pt). Skin Care precaution order set in place. Dietitian consult N/A, subscore=3. PT consult in place. Will continue to follow pt. Please Voicera for any questions or concerns. Liz Keane RN, BSN, CWCN Report called to [facility] ke [place] Patient is making inappropriate comments to nursing [...] message with any questions. Liz Keane RN, [facility] Wound Care arrived to pt's room for Prevention consult, but pt not in room at present time. Will return as time permits. Please Voicera for any questions or concerns. Kaycee Ricardo RN Krissy from [place] called and states "James needs to return to baseline before he can return to us, he is usually independent with ADL's and walks safely with his rollator." Krissy's direct line [phone]. documented in this encounter [facility] 12-05-2023 Nurse Note Report called to [facility] of [place] [facility] 12-05-2023 Miscellaneous Notes Patient Choice Patient Name: JAMES REYES Date of : 1955 All Providers Sent [facility] Phone: [phone] Address: [address] [place] [address] Name: Milagro ALBARRAN Phone: [phone] Address: [address] [place] [address] Name: Juan Phone: [phone] Address: [address] [place] [address] [address] [place] [address] Discharge med list transmitted to [facility] via [facility] per TCC request. Level of Care returned. Notified RN, PRAFUL, and MD. Discharge order obtained. Uploaded PASRR and level of care to [facility] and sent to [facility]. 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 Notified RN, TCC, pt's brother, Sreekanth, facility, and community health program representative of discharge time. Level of Care is back. Plan is discharge to [facility]. Once discharge is written. SW will set up transportation. Hearth Feeder will copy AVS. Bedside Nurse will call report to [phone]. I will task LIFE SKILLS SPECIALIST to transmit MAR to [facility]. coverage for today. CRUZ completed, printed, and sent to [facility] to [place] along with additional clinical information to start [...] mgmt discharge readiness Clinical Stability Diagnostic Workup Rubber Flap Tuber Machine Operator Recommendations Imaging Results PT discharge readiness OT discharge readiness SOLAR DESIGNER discharge readiness Patient Education Complete Expected Discharge [...] were not included. Care Management Progress Note [facility] willing to accept. Will need Level of care, Discharge Milestones and Delays Expected date/time: 12/05/[address] discharge order Complete med reconciliation Case mgmt discharge readiness Clinical Stability Diagnostic Workup Rubber Flap Tuber Machine Operator Recommendations Imaging Results PT discharge readiness OT discharge readiness SOLAR DESIGNER discharge readiness Patient Education Complete Expected Discharge History Expected Date/Time Set By Reviewed At 12/05/2023 Jennifer Salazar RN 12/04/2023 9:11 AM 12/04/2023 Jennifer Salazar RN 12/01/2023 9:23 AM 12/01/2023 Sergio Ruff DO 11/30/2023 12:41 AM 12/01/2023 Sergio Ruff DO 11/29/2023 10:14 PM Length of Stay (Days): 5 GMLOS: No GMLOS Documented Referral placed to [facility] via [facility] per TCC request. Await review and response regarding ability to accept. TCC notified. Explained to patient his AL wanted him to go to skilled facility before returning home. Patient agreeable. I read facilities to patient. He made choices of ([facility]) [facility] and [facility]. Referrals in Careport. Patient will [...] is improving Outcome: Progressing Referral placed to [facility] via [facility] per TCC request. Await review and response regarding ability to accept. TCC notified. Care Managment Initial Assessment Date: 11/30/2023 Patient Name: James Reyes : 1955 Patient Information Source of Information: Patient Cognition/Language: WFL - Within Functional Limits Permission given to speak with patient sales donor recruitment representative/caregiver as indicated: No Confirmation of Payer with patient/family: Payer Name: Medicaid [place]: No Confirmation of Primary Care Physician: (Does not know) Primary Caregiver: Self If assistance needed, confirmed caregiver ready, willing and able to care for patient at discharge: Yes Confirmed with: Living Arrangements Current Residence: Number of Floors Number of Entry Steps: Bed/Bath Levels: Facility: Assisted Living Facility Name: [facility] Plan to Return: Yes Lives with: Alone Support Systems: Comments (Other) (assisted living staff) Activities of Daily Living Ambulation: Independent (With rollator) Bathing/Dressing: Independent Elimination/Continence/Toileting: Independent Feeding: Independent Who Assists with Activities of Daily Living: Instrumental Activities of Daily Living Prescription Coverage: Yes Pharmacy Used: [facility] Medication Management: Transportation/Shopping: Transportation Mode: Needs Assistance with Transportation at Discharge: Yes Meal Preparation: (AL) Laundry/Cleaning: (AL) Finances/Bill Paying: (AL) Communication: Independent Types of Care Services/Equipment Utilized Care Services: Dialysis Type: Durable Medical Equipment: Rollator Patient's Goal/Discharge Plan Patient expects to be discharged to: D Discharge Planning Actions: Continue to follow Patient's Choice Rights and [employer] and Collaborative Relationships Disclosed as Indicated for Post-Acute Care: Interdisciplinary Team Engagement: Social Work Referral for: Additional Information: [place] per patient. From [facility] DME-Rollator. Per [facility]. DON-Patient will need to be at his baseline to return to [place]. Will continue to follow for therapy recommendation. Jennifer Salazar RN Spoke to [facility] -[facility]. Pt follows with PCP Dr.Richard Perdomo with [facility] [phone] The patient is Moderately Stable - Low [...] adequate time for meals Collaborate with clinical stock analyst Collaborate with interdisciplinary team and initiate plan [...] adequate time for meals Collaborate with clinical stock analyst Collaborate with interdisciplinary team and initiate plan and interventions as ordered Utilize nutrition screening tool and intervene per policy Assist patient with eating Encourage patient to take dietary supplement as ordered Include patient/family/caregiver in decisions related to nutrition Problem: Discharge Barriers Goal: My discharge needs are met Outcome: Progressing documented in this encounter [facility] 12-05-2023 Note Formatting of this n ote might be different from the original. Patient Choice Patient Name: JAMES REYES Date of : 1955 All Providers Sent [facility] Phone: [phone] Address: [address] [place] [address] Name: Milagro Cruz [facility] Phone: [phone] Address: [address] [place] [address] Name: [facility] Phone: [phone] Address: [address] [place] [address] [facility] 12-05-2023 Note Formatting of this n ote might be different from the original. Patient Choice Patient Name: JAMES REYES Date of : 1955 All Providers Sent [facility] Phone: [phone] Address: [address] [place] [address] Name: Milagro Cruz [facility] Phone: [phone] Address: [address] [place] [address] Name: Juan Phone: [phone] Address: [address] [place] [id number] [facility] 12-05-2023 Note Formatting of this n ote might be different from the original. Discharge med list transmitted to [facility] via [facility] per TCC request. [facility] 12-05-2023 Note Formatting of this n ote might be different from the original. Discharge med list transmitted to [facility] via [facility] per TCC request. [facility] 12-05-2023 Note Formatting of this n ote might be different from the original. Level of Care returned. Notified RN, TCC, and MD. Discharge order obtained. Uploaded PASRR and level of care to [facility] and sent to [facility]. Arranged for Abhijit [facility] wheelchair ambulance for transport thru [employer] for grain picker at 2 PM. Notified RN, TCC, pt's brother, Sreekanth, facility, and community health program representative of discharge time. [facility] 12-05-2023 Note Formatting of this n ote might be different from the original. Level of Care returned. Notified RN, TCC, and MD. Discharge order obtained. Uploaded PASRR and level of care to [facility] and sent to [facility]. Arranged for [facility] wheelchair ambulance for transport thru [employer] for grain picker at 2 PM. Notified RN, TCC, pt's brother, Sreekanth, facility, and community health program representative of discharge time. [facility] 12-05-2023 Note Formatting of this n ote might be different from the original. Level of Care is back. Plan is discharge to [facility]. Once discharge is written. SW will set up transportation. Blum will copy AVS. Bedside Nurse will call report to [phone]. I will task LIFE SKILLS SPECIALIST to transmit MAR to [facility]. [facility] 12-05-2023 Note Formatting of this n ote might be different from the original. Level of Care is back. Plan is discharge to [facility]. Once discharge is written. SW will set up transportation. Hearth Feeder will copy AVS. Bedside Nurse will call report to [phone]. I will task LIFE SKILLS SPECIALIST to transmit MAR to [facility]. [facility] 12-05-2023 Nurse Note Patient is making inappropriate comments to nursing staff, after having a male nurse assigned he requested a new female nurse because he was not "pretty". Patient was reminded that this is a professional environment and this behavior is not appropriate. [facility] 12-05-2023 Note Formatting of this n ote might be different from the original. coverage for today. CRUZ completed, printed, and sent to [facility] along with additional clinical information to start Level of Care. PASRR completed by SHALONDA Smith. Await return of Level of Care. T [facility] 12-05-2023 Note Formatting of this n ote might be different from the original. coverage for today. CRUZ completed, printed, and sent to [facility] along with additional clinical information to start Level of Care. PASRR completed by SHALONDA Smith. Await return of Level of Care. [facility] 12-05-2023 Note Formatting of this n ote is different from the original. Images from the original note were not included. Care Management Progress Note [facility] willing to accept. Will need CRUZ completed for to get Level of care. Message in secure chat for bedside Nurse to complete. Once Level of Care is received facility can accept patient. Discharge Milestones and Delays Expected date/time: 12/06/[address] discharge order Complete med reconciliation Case mgmt discharge readiness Clinical Stability Diagnostic Workup Rubber Flap Tuber Machine Operator Recommendations Imaging Results PT discharge readiness OT discharge readiness SOLAR DESIGNER discharge readiness Patient Education Complete Expected Discharge History Expected Date/Time Set By Reviewed At 12/06/2023 Jennifer Salazar RN 12/05/2023 7:38 AM 12/05/2023 Jennifer Salazar RN 12/04/2023 9:11 AM 12/04/2023 Jennifer Salazar RN 12/01/2023 9:23 AM 12/01/2023 Sergio Ruff, DO 11/30/2023 12:41 AM 12/01/2023 Sergio Ruff, DO 11/29/2023 10:14 PM Length of Stay (Days): 6 GMLOS: No GMLOS Documented T [facility] 12-05-2023 Note Formatting of this n ote is different from the original. Images from the original note were not included. Care Management Progress Note [facility] willing to accept. Will need CRUZ completed for SW to get Level of care. Message in secure chat for bedside Nurse to complete. Once Level of Care is received facility can accept patient. Discharge Milestones and Delays Expected date/time: 12/06/[address] discharge order Complete med reconciliation Case mgmt discharge readiness Clinical Stability Diagnostic Workup Rubber Flap Tuber Machine Operator Recommendations Imaging Results PT discharge readiness OT discharge readiness SOLAR DESIGNER discharge readiness Patient Education Complete Expected Discharge History Expected Date/Time Set By Reviewed At 12/06/2023 Jennifer Salazar RN 12/05/2023 7:38 AM 12/05/2023 Jennifer Salazar RN 12/04/2023 9:11 AM 12/04/2023 Jennifer Salazar RN 12/01/2023 9:23 AM 12/01/2023 Sergio Ruff, DO 11/30/2023 12:41 AM 12/01/2023 Sergio Ruff DO 11/29/2023 10:14 PM Length of Stay (Days): 6 GMLOS: No GMLOS Documented T [facility] 12-05-2023 Plan of care note The patient is Moderately Stable - Low risk of patient condition declining or worsening The patient's goals for the shift include The clinical goals for the shift include Over the shift, the patient did not make progress toward the following goals. Barriers to progression include education . Recommendations to address these barriers include learning about diease process. [facility] 12-04-2023 Note Formatting of this n ote might be different from the original. Reviewed with TCC. Completed PAS in PAX Streamline, will submit for LOC once CRUZ completed. [facility] 12-04-2023 Note Formatting of this n ote might be different from the original. Reviewed with TCC. Completed PAS in [employer] Streamline, will submit for LOC once CRUZ completed. [facility] 12-04-2023 Note Formatting of this n ote is different from the original. Images from the original note were not included. Care Management Progress Note [facility] willing to accept. Will need Level of care, Discharge Milestones and Delays Expected date/time: 12/05/[address] discharge order Complete med reconciliation Case mgmt discharge readiness Clinical Stability Diagnostic Workup Rubber Flap Tuber Machine Operator Recommendations Imaging Results PT discharge readiness OT discharge readiness SOLAR DESIGNER discharge readiness Patient Education Complete Expected Discharge History Expected Date/Time Set By Reviewed At 12/05/2023 Jennifer Salazar RN 12/04/2023 9:11 AM 12/04/2023 Jennifer Salazar RN 12/01/2023 9:23 AM 12/01/2023 Sergio Newman Speedy, DO 11/30/2023 12:41 AM 12/01/2023 Sergio G Riyaheim, DO 11/29/2023 10:14 PM Length of Stay (Days): 5 GMLOS: No GMLOS Documented T [employer] [facility] [employer] 12-04-2023 Note Formatting of this n ote is different from the original. Images from the original note were not included. Care Management Progress Note [facility] willing to accept. Will need Level of care, Discharge Milestones and Delays Expected date/time: 12/05/[address] discharge order Complete med reconciliation Case mgmt discharge readiness Clinical Stability Diagnostic Workup Rubber Flap Tuber Machine Operator Recommendations Imaging Results PT discharge readiness OT discharge readiness SOLAR DESIGNER discharge readiness Patient Education Complete Expected Discharge History Expected Date/Time Set By Reviewed At 12/05/2023 Jennifer Salazar RN 12/04/2023 9:11 AM 12/04/2023 Jennifer Salazar RN 12/01/2023 9:23 AM 12/01/2023 Sergio Paty Riyaheim, DO 11/30/2023 12:41 AM 12/01/2023 Sergio G Riyaheim, DO 11/29/2023 10:14 PM Length of Stay (Days): 5 GMLOS: No GMLOS Documented T [employer] 12-04-2023 Nurse Note Wound Care consulted for Pressure Injury Prevention. Pt's Yang= 20, pt is no longer at risk. Skin Care Precaution order set in place. PT/OT consults in place. Dietitian consult in place. Will continue to follow peripherally. Please voicera or secure chat message with any questions. Liz Keane RN, CWCN [facility] 12-01-2023 Note Formatting of this n ote might be different from the original. Referral placed to [facility] via [facility] per TCC request. Await review and response regarding ability to accept. TCC notified. [facility] 12-01-2023 Note Formatting of this n ote might be different from the original. Referral placed to [facility] via [facility] per TCC request. Await review and response regarding ability to accept. TCC notified. [facility] 12-01-2023 Note Formatting of this n ote might be different from the original. Explained to patient his AL wanted him to go to skilled facility before returning home. Patient agreeable. I read facilities to patient. He made choices of (FOC) [facility] and [facility]. Referrals in [facility]. Patient will need Level of Care. [facility] 12-01-2023 Note Formatting of this n ote might be different from the original. Explained to patient his AL wanted him to go to skilled facility before returning home. Patient agreeable. I read facilities to patient. He made choices of (FOC) [facility] and [facility]. Referrals in [facility]. Patient will need Level of Care. [facility] 12-01-2023 Note Formatting of this n [...] Stay (Days): 2 GMLOS: No GMLOS Documented [facility] 12-01-2023 Note Formatting of this n [...] Stay (Days): 2 GMLOS: No GMLOS Documented [facility] 12-01-2023 Plan of care note The patient [...] My discharge needs are met Outcome: Progressing [facility] 11-30-2023 Plan of care note Problem: Potential for Compromised Skin Integrity Goal: Skin Integrity is Maintained or Improved Outcome: Progressing Goal: Nutritional status is improving Outcome: Progressing Problem: Nutrition Goal: Nutritional status is improving Outcome: Progressing [facility] 11-30-2023 Nurse Note Wound Care arrived to pt's room for Prevention consult, but pt not in room at present time. Will return as time permits. Please Voicera for any questions or concerns. Kaycee Ricardo RN [facility] 11-30-2023 Note Formatting of this n ote might be different from the original. [facility]. Await review and response regarding ability to accept. TCC notified. [facility] 11-30-2023 Note Formatting of this n ote might be different from the original. Referral placed to [facility] via [facility] per TCC request. Await review and response regarding ability to accept. TCC notified. [facility] 11-30-2023 Note Formatting of this n ote might be different from the original. Care Managment Initial Assessment Date: 11/30/2023 Patient Name: James Reyes : 1955 Patient Information Source of Information: Patient Cognition/Language: WFL - Within Functional Limits Permission given to speak with patient sales donor recruitment representative/caregiver as indicated: No Confirmation of Payer with patient/family: Payer Name: Medicaid [place]: No Confirmation of Primary Care Physician: (Does not know) Primary Caregiver: Self If assistance needed, confirmed caregiver ready, willing and able to care for patient at discharge: Yes Confirmed with: Living Arrangements Current Residence: Number of Floors Number of Entry Steps: Bed/Bath Levels: Facility: Assisted Living Facility Name: [facility] Plan to Return: Yes Lives with: Alone Support Systems: Comments (Other) (assisted living staff) Activities of Daily Living Ambulation: Independent (With rollator) Bathing/Dressing: Independent Elimination/Continence/Toileting: Independent Feeding: Independent Who Assists with Activities of Daily Living: Instrumental Activities of Daily Living Prescription Coverage: Yes Pharmacy Used: [facility] Medication Management: Transportation/Shopping: Transportation Mode: Needs [...] per patient. From [employer] [facility] DME-Rollator. Per [facility] [place]. DON-Patient will need to be at his baseline to return to [place]. Will continue to follow for therapy recommendation. Jennifer Salazar RN [facility] 11-30-2023 Note Formatting of this n ote might be different from the original. Care Managment Initial Assessment Date: 11/30/2023 Patient Name: James Reyes : 1955 Patient Information Source of Information: Patient Cognition/Language: WFL - Within Functional Limits Permission given to speak with patient sales donor recruitment representative/caregiver as indicated: No Confirmation of Payer with patient/family: Payer Name: Medicaid [place]: No Confirmation of Primary Care Physician: (Does not know) Primary Caregiver: Self If assistance needed, confirmed caregiver ready, willing and able to care for patient at discharge: Yes Confirmed with: Living Arrangements Current Residence: Number of Floors Number of Entry Steps: Bed/Bath Levels: Facility: Assisted Living Facility Name: [facility] Plan to Return: Yes Lives with: Alone Support Systems: Comments (Other) (assisted living staff) Activities of Daily Living Ambulation: Independent (With rollator) Bathing/Dressing: Independent Elimination/Continence/Toileting: Independent Feeding: Independent Who Assists with Activities of Daily Living: Instrumental Activities of Daily Living Prescription Coverage: Yes Pharmacy Used: [facility] Medication Management: Transportation/Shopping: Transportation Mode: [...] for: Additional Information: [place] per patient. From [facility] DME-Rollator. Per [facility] [place]. DON-Patient will need to be at his baseline to return to [place]. Will continue to follow for therapy recommendation. Jennifer Salazar RN [facility] 11-30-2023 Note Formatting of this n ote might be different from the original. Spoke to [facility]. Pt follows with PCP Dr.Richard Perdomo with [facility] [phone] [facility] 11-30-2023 Note Formatting of this n ote might be different from the original. Spoke to [facility]. Pt follows with PCP Dr.Richard Perdomo with [facility] [phone] [facility] 11-30-2023 Nurse Note Krissy from [facility] called and states "James needs to return to baseline before he can return to us, he is usually independent with ADL's and walks safely with his rollator." Krissy's direct line [phone]. [facility] 11-30-2023 Consult note Associated Order (s): IP CONSULT TO NEUROLOGY INITIAL CONSULT NOTE. 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 4/13/22 Historical ProviderMD Advair Diskus 250-50 MCG/ACT aerosol [...] Historical Provider, ergocalciferol (Vitamin D-2) 1.25 MG (01083 UT) capsule Take 1.25 mg by mouth [...] nystatin (Mycostatin) cream 11/08/22 Historical Provider, pancrelipase, Srh-Yjmd-Jcfg, (Creon) 99494-63633 units capsule Take by mouth 3 times [...] IntraVENous, q6h PRN, Lorenza Bowles MD pancrelipase (Drw-Hjrs-Xjrv) (Creon) 6000-62201 units per capsule 2 capsule, 2 capsule, Oral, TID WC, Lorenza Bowles MD polyethylene glycol (PEG) 3350 (Miralax) packet 17 g, 17 g, Oral, Daily PRN, Lorenza Bowles MD pregabalin (Lyrica) capsule 150 mg, 150 mg, Oral, BID, Lorenza Bowles MD, 150 mg at 11/30/23 0200 sodium chloride 0.9 % infusion, 50 mL/hr, IntraVENous, Continuous, Lorneza Bowles MD, Last Rate: 50 mL/hr at [...] attack Mother 61.00 Heart disease Father Other ([id number]) Brother accident Coronary artery disease Father Diabetes [...] 457 ms QTC Interval 439 ms P [place] 13 degrees QRS [place] -44 degrees T Wave [place] 122 degrees [place] Interval 230 ms POCT glucose meter Collection [...] -HTN under control with Coreg -CAD in [place] artery Dizziness secondary to mechanical fall -CT [...] in this patient's care. [facility] 11-30-2023 Consult note Associated Order (s): IP CONSULT TO NEUROLOGY INITIAL CONSULT NOTE. 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 Take with meals. 02/22/23 Otfrphilip Corcoran MD cholestyramine (Questran) 4 g packet Take 1 packet by mouth in the morning and 1 packet at noon and 1 packet in the evening. Take with meals. Historical Provider, cilostazol (Pletal) 50 MG tablet Take 50 mg by mouth 2 times daily. Historical ProviderMD clindamycin (Cleocin) 150 MG capsule Take 150 [...] Historical Provider, ergocalciferol (Vitamin D-2) 1.25 MG (78140 UT) capsule Take 1.25 mg by mouth [...] nystatin (Mycostatin) cream 11/08/22 Historical Provider, pancrelipase, Fmu-Sqxa-Cgli, (Creon) 01165-56590 units capsule Take by mouth 3 times [...] IntraVENous, q6h PRN, Lorenza Bowles MD pancrelipase (Sja-Cqhm-Guos) (Creon) 6000-19123 units per capsule 2 capsule, 2 capsule, [...] attack Mother 61.00 Heart disease Father Other ([id number]) Brother accident Coronary artery disease Father Diabetes [...] 457 ms QTC Interval 439 ms P [place] 13 degrees QRS [place] -44 degrees T Wave [place] 122 degrees [place] Interval 230 ms POCT glucose meter Collection [...] -HTN under control with Coreg -CAD in [place] artery Dizziness secondary to mechanical fall -CT [...] documented in this encounter [facility] 11-30-2023 Plan of care note The [...] adequate time for meals Collaborate with clinical stock analyst Collaborate with interdisciplinary team and initiate plan [...] adequate time for meals Collaborate with clinical stock analyst Collaborate with interdisciplinary team and initiate plan and interventions as ordered Utilize nutrition screening tool and intervene per policy Assist patient with eating Encourage patient to take dietary supplement as ordered Include patient/family/caregiver in decisions related to nutrition Problem: Discharge Barriers Goal: My discharge needs are met Outcome: Progressing [facility] 11-30-2023 History and physical note Attending History and Physical Admit Date: 11/29/2023 PCP: No primary care provider on file. CHIEF COMPLAINT: Chief Complaint Patient presents with Fall Head Laceration HISTORY OF PRESENT ILLNESS: James is a 68 y.o. male with past medical history below who presents with chief complaint listed above. Pt was walking with his rollator on [address] to go get cigarettes. Pt lost his balance while walking and stumbled onto grass and fell backwards hitting his head. Denied loss of consciousness, vision changes, slurred speech, weakness/numbness in extremity, or nausea/vomiting. Will admit for further evaluation and management. 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 COPD (chronic obstructive pulmonary disease) [...] 07/18/2022 Performed by David Chen MD at [facility] OR CORONARY ARTERY BYPASS GRAFT FOOT SURGERY Left 2015 HEMORRHOID SURGERY 1997 INNER EAR SURGERY tube placement in ears LAYERED WOUND CLOSURE N/A 10/16/2017 sternal wound debridment and closure with wound vac OTHER SURGICAL HISTORY 10/24/2017 I&D sternal wound with flap OTHER SURGICAL HISTORY punching bag removal THYROID SURGERY nodule removal 2011 TONSILLECTOMY (HISTORICAL) UPPER GASTROINTESTINAL ENDOSCOPY 04/01/2016 gastritis, [...] attack Mother 61.00 Heart disease Father Other ([id number]) Brother accident Coronary artery disease Father Diabetes [...] mouth daily. ergocalciferol (Vitamin D-2) 1.25 MG (91918 UT) capsule Take 1.25 mg by mouth [...] for chest pain. 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 The patient and/or family/surrogate voluntarily agreed to participate in ACP services. Patient s cognitive capacity: yes Code Status: [x] [FULL CODE - Continue all advanced life support: CPR,intubation,invasive procedures] [_] [DNR-CCA - DO NOT do CPR, intubation] [_] [DNR-SCIENCE TEACHER - Comfort care only] [_] DNR form [...] Lorenza Bowles MD Division of Hospitalist Medicine [facility] [place] Phone: 11-30-2023 History and physical note Attending History and Physical Admit Date: 11/29/2023 PCP: No primary care provider on file. CHIEF COMPLAINT: Chief Complaint Patient presents with Fall Head Laceration HISTORY OF PRESENT ILLNESS: James is a 68 y.o. male with past medical history below who presents with chief complaint listed above. Pt was walking with his rollator on [address] to go get cigarettes. Pt lost his balance while walking and stumbled onto grass and fell backwards hitting his head. Denied loss of consciousness, vision changes, slurred speech, weakness/numbness in extremity, or nausea/vomiting. Will admit for further evaluation and management. 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 ergocalciferol (Vitamin D-2) 1.25 MG (98724 UT) capsule Take 1.25 mg by mouth [...] for chest pain. 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 The patient and/or family/surrogate voluntarily agreed to participate in ACP services. Patient s cognitive capacity: yes Code Status: [x] [FULL CODE - Continue all advanced life support: CPR,intubation,invasive procedures] [_] [DNR-CCA - DO NOT do CPR, intubation] [_] [DNR-SCIENCE TEACHER - Comfort care only] [_] DNR form [...] Lorenza Bowles MD Division of Hospitalist Medicine [facility] documented in this encounter [facility] 11-29-2023 Emergency department Note Spoke to sister in [place], and advised that patient is being admitted to [facility] and EMS is on scene for transport Amelia Lopez RN 11/29/23 2336 [facility] 11-29-2023 Emergency department Note Spoke to sister in [place], and advised that patient is being admitted to [facility] and EMS is on scene for transport Amelia Lopez RN 11/29/23 2336 Report to [facility] ambulance crew. Chart to crew for [facility]. Minda Quesada RN 11/29/23 2850 Report called to 4W Amelia ROACH @ [facility] Minda Quesada RN 11/29/23 2011 Pt's sister in law, Niru, called to ask about pt. Ok to speak to her per pt. Advised about the fall earlier and now having dizziness. She will call back later to check about the results. 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 Dr. Ruff notified Minda Quesada RN 11/29/231946 Pt assisted to stand. Dr wants pt to ambulate with his rollator. Upon standing, pt incontinent of urine. Pt changed out of jeans and underwear. Pt stated to throw his wet clothing away. Pt given pajama bottoms. Pt able to training and development director room and feels comfortable going home. Minda [...] 1955 Date of evaluation: 11/29/2023 ED Provider: Bette Arreola DO CHIEF COMPLAINT Chief Complaint Patient presents with Fall Head Laceration HISTORY OF PRESENT ILLNESS (Location/Symptom, Timing/Onset, Context/Setting, Quality, Duration, Modifying Factors, Severity) Note limiting factors. I wore appropriate PPE for the entirety of this encounter. HPI James Reyes is a 68 y.o. who presents to the emergency department via EMS status post mechanical fall. Patient resides at [facility] was using rollator to go to the [...] Acute kidney injury (HCC) 09/11/2015 CAD in [place] artery 08/08/2017 COPD (chronic obstructive pulmonary disease) [...] mouth daily. ergocalciferol (Vitamin D-2) 1.25 MG (62947 UT) capsule Take 1.25 mg by mouth [...] for chest pain. nystatin (Mycostatin) cream pancrelipase, Gvb-Mapw-Cpxr, (Creon) 75724-49671 units capsule Take by mouth 3 times [...] attack Mother 61.00 Heart disease Father Other ([id number]) Brother accident Coronary artery disease Father Diabetes [...] arteries: There is origin of the right HOTEL SERVICE SUPERVISOR. Otherwise, unremarkable. Anterior communicating artery: Unremarkable. Posterior communicating arteries: Robustness of the right posterior communicating artery is present, in keeping with origin of the right HOTEL SERVICE SUPERVISOR. Otherwise, unremarkable. Aneurysm or vascular malformation: None [...] arteries: There is origin of the right HOTEL SERVICE SUPERVISOR. Otherwise, unremarkable. Anterior communicating artery: Unremarkable. Posterior communicating arteries: Robustness of the right posterior communicating artery is present, in keeping with origin of the right HOTEL SERVICE SUPERVISOR. Otherwise, unremarkable. Aneurysm or vascular malformation: None [...] arteries: There is origin of the right HOTEL SERVICE SUPERVISOR. Otherwise, unremarkable. Anterior communicating artery: Unremarkable. Posterior communicating arteries: Robustness of the right posterior communicating artery is present, in keeping with origin of the right HOTEL SERVICE SUPERVISOR. Otherwise, unremarkable. Aneurysm or vascular malformation: None [...] equal to 30 ng/mL Test performed by [facility] Competitive Immunoassay, measuring Total Vitamin D, not [...] Abnormal Glucose 101 (*) Narrative: Performed by: [facility], [address] [place] [address] CLIA ID: [id number] POCT GLUCOSE METER UNSOLICITED RESULTS - Abnormal Glucose 139 (*) Narrative: Performed by: [facility], [address] [place] [address] CLIA ID: [id number] POCT GLUCOSE METER UNSOLICITED RESULTS - Abnormal Glucose 124 (*) Narrative: Performed by: [facility], [address] [place] [address] CLIA ID: [id number] POCT GLUCOSE METER UNSOLICITED RESULTS - Abnormal Glucose 139 (*) Narrative: Performed by: [facility], [address] [place] [address] CLIA ID: [id number] POCT GLUCOSE METER UNSOLICITED RESULTS - Abnormal Glucose 200 (*) Narrative: Performed by: [facility], [address] [place] [address] CLIA ID: [id number] POCT GLUCOSE METER UNSOLICITED RESULTS - Abnormal Glucose 124 (*) Narrative: Performed by: [facility], [address] [place] [address] CLIA ID: [id number] POCT GLUCOSE METER UNSOLICITED RESULTS - Abnormal Glucose 156 (*) Narrative: Performed by: [facility], [address] [place] [address] CLIA ID: [id number] POCT GLUCOSE METER UNSOLICITED RESULTS - Abnormal Glucose 276 (*) Narrative: Performed by: [facility], [address] [place] [address] CLIA ID: [id number] POCT GLUCOSE METER UNSOLICITED RESULTS - Abnormal Glucose 156 (*) Narrative: Performed by: [facility], [address] [place] [address] CLIA ID: [id number] POCT GLUCOSE METER UNSOLICITED RESULTS - Abnormal Glucose 207 (*) Narrative: Performed by: [facility], [address] [place] [address] CLIA ID: [id number] POCT GLUCOSE METER UNSOLICITED RESULTS - Abnormal Glucose 142 (*) Narrative: Performed by: [facility], [address] [place] [address] CLIA ID: [id number] POCT GLUCOSE METER UNSOLICITED RESULTS - Abnormal Glucose 259 (*) Narrative: Performed by: [facility], [address] [place] [address] CLIA ID: [id number] POCT GLUCOSE METER UNSOLICITED RESULTS - Abnormal Glucose 119 (*) Narrative: Performed by: [facility], [address] [place] [address] CLIA ID: [id number] PROTHROMBIN TIME - Normal PROTHROMBIN TIME 10.9 [...] - Normal Glucose 84 Narrative: Performed by: [facility], [address] [place], [place] [id number] CLIA ID: [id number] POCT GLUCOSE METER UNSOLICITED RESULTS - Normal Glucose 74 Narrative: Performed by: [facility], [address] [place] [address] CLIA ID: [id number] COMPREHENSIVE METABOLIC PANEL WITH MG REFLEX Narrative: The following orders were created for panel order Comprehensive Metabolic Panel w/ Mg Reflex. Procedure Abnormality Status --------- ------ Comprehensive metabolic ...[[id number]] Abnormal Final result Please view results for these tests on the individual orders. COMPREHENSIVE METABOLIC PANEL WITH MG REFLEX Narrative: The following orders were created for panel order Comprehensive Metabolic Panel with Mg Reflex. Procedure Abnormality Status --------- ------ Comprehensive metabolic ...[[id number]] Abnormal Final result Please view results for these tests on the individual orders. COMPREHENSIVE METABOLIC PANEL WITH MG REFLEX Narrative: The following orders were created for panel order Comprehensive Metabolic Panel with Mg Reflex. Procedure Abnormality Status --------- ------ Comprehensive metabolic ...[[id number]] Abnormal Final result Please view results for these tests on the individual orders. COMPREHENSIVE METABOLIC PANEL WITH MG REFLEX Narrative: The following orders were created for panel order Comprehensive Metabolic Panel with Mg Reflex. Procedure Abnormality Status --------- ------ Comprehensive metabolic ...[[id number]] Abnormal Final result Please view results for [...] DEPARTMENT COURSE and DIFFERENTIAL DIAGNOSIS/MDM: Vitals: Vitals: 12/02/23202612/03/23 0232 12/03/23 0627 12/03/23 1022 BP: 122/63 [...] (16 Units SubCUTAneous Given 12/03/23 0845) pancrelipase (Ctc-Foik-Pigf) (Creon) 6000-59918 units per capsule 2 capsule (2 capsules [...] greaseless cream ( Apply externally Given 12/03/23 9144) oxyCODONE-acetaminophen (Percocet) 5-325 MG per tablet 1 [...] Response: Oriented Best Motor Response: Follows commands Marlin Coma Scale Score: 15 NIH Stroke Scale [...] Motor - Right Leg: Some Effort Against [place] (pt reports pain being why he is [...] to contact the dictating provider for clarification.) Bette Arreola DO (electronically signed) Emergency Medicine Provider Bette Arreola DO 12/03/23 1132 Emergency Department Encounter Location: [facility] CARDIAC POST INTERVENTION PROGRESSIVE CARE UNIT CPI [...] 457 ms QTC Interval 439 ms P Warren 13 degrees QRS Warren -44 degrees T Wave Warren 122 degrees [place] Interval [address] cervical spine wo [...] call and speak with the hospitalist at [facility], Dr. Bowles who agreed accept patient for [...] (has no administration in time range) pancrelipase (Xut-Bmav-Wows) (Creon) 6000-03197 units per capsule 2 capsule (has no [...] Ruff DO 11/30/23 0435 Pt arrives via [facility] after a fall. Pt lives at [facility] living. Pt was walking with his rollator on [facility] to go get cigarettes. Pt [...] documented in this encounter [facility] 11-29-2023 Emergency department Note Report to [facility] ambulance crew. Chart to crew for [facility]. Minda Quesada RN 11/29/23 7156 [facility] 11-29-2023 Emergency department Note Report called to 4W Amelia ROACH @ [facility] Minda Quesada RN 11/29/23 2377 [facility] 11-29-2023 Emergency department Note Pt's sister in law, Niru, called to ask about pt. Ok to speak to her per pt. Advised about the fall earlier and now having dizziness. She will call back later to check about the results. 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 Dr. Ruff notified Minda Quesada RN 11/29/231946 [facility] 11-29-2023 Emergency department Note Pt assisted to stand. wants pt to ambulate with his rollator. Upon standing, pt incontinent of urine. Pt changed out of jeans and underwear. Pt stated to throw his wet clothing away. Pt given pajama bottoms. Pt able to training and development director room and feels comfortable going home. Minda Quesada RN 11/29/231940 [facility] 11-29-2023 Hospital Discharge instructions Amelia Faria RN - 11/29/2023 7:09 PM EDT Ughb-zwk-xttdgda and home medications as needed for pain. [...] and the need for follow-up with a physician/DIE SINKER APPRENTICE/PA after discharge. Amelia Faria RN on 11/30/23 [...] Unit/Room#: W4-436/W4-436 A Discharging Unit Phone Number: [phone] Emergency Contact: Extended Emergency Contact Information Primary Emergency Contact: Sreekanth Reyes Relation: Sibling Past Surgical History: Past Surgical History: Procedure Laterality Date CHOLECYSTECTOMY 03/29/20162010 COLONOSCOPY 05/23/2017 COLONOSCOPY 03/29/2016, repeat in 10 years, Dr. Ness, normal except internal hemorrhoid COLONOSCOPY N/A 07/18/2022 Performed by David Chen MD at [facility] OR CORONARY ARTERY BYPASS GRAFT FOOT [...] current use of insulin (HCC) CAD in [place] artery Uncontrolled type 2 diabetes mellitus with complication, with long-term current use of insulin Pseudomonas aeruginosa infection Angina at rest (HCC) Sternal wound dehiscence director long term care (current) use of antibiotics Enlarged prostate with lower urinary tract symptoms (LUTS) Hypertensive heart disease Overview Signed 01/27/2022 12:43 PM by Interface, Incoming Problems- [facility] Conversion ECHO DONE [facility] 55% EF SHOWS HYPERTENSIVE HEART DISEASE COPD (chronic obstructive pulmonary disease) (HCC) Overview Signed 01/27/2022 12:43 PM by Interface, Incoming Problems- [facility] Conversion PATIENT IS ON 2 LITER OF OXYGEN AND NOW IS SEEING DR ESTRADA WAS TESTED [facility] AND QUALIFED HOME OXYGEN 07/17/2015 Arthritis [...] Minimal assistance Toileting Minimal assistance Feeding Independent Dining Room Captain Minimal assistance Med Delivery no Wound Care [...] Date: 11/29/23 Discharging to Facility/ Agency Name: [facility] Address: [address] [place] [address] Dialysis Facility (if applicable) Name: Address: Dialysis Schedule: Phone: Fax: Denture Processor/Assembly Worker signature: ICIAN SECTION Name: James Reyes Prognosis: fair Condition at Discharge: stable Rehab Potential (if transferring to Rehab): fair Recommended Labs or Other Treatments After Discharge: CBC and BMP every 3 days The individual is being admitted to a nursing facility directly from an [facility] or a unit of a hospital that is not operated by or licensed by [facility] under section 5119.14 or 5160-3-15.1 5 The individual requires the level of services provided by a nursing facility for the condition for which he or she was treated in the hospital and, Physician Certification: I certify the above information and transfer of James Reyes is necessary for the continuing treatment of the diagnosis listed and that he requires group home facility for less than 30 days. Update Admission H&P: No change in H&P PHYSICIAN SIGNATURE: The following attachments cannot be sent through Care Everywhere.Concussion Discharge Instructions, Adult (Brazilian)Quitting Smoking (Brazilian)documented in this encounter [facility] 11-29-2023 Emergency department Note Pt assisted using urinal, but unable to urinate at this time. Pt asking for vaccuum mattress to be removed. Dr. Arreola assisted in rolling pt and removing mattress. Pt complains of chronic pain in legs and back, but no new pain. Minda Quesada RN 11/29/23 1703 [facility] 11-29-2023 Emergency department Note Pt'd continous glucose monitor is going off. Reading 69. Finger stick glucose 84 on arrival. Minda Quesada RN 11/29/23 1611 [facility] 11-29-2023 Emergency department Triage note Pt arrives via [facility] after a fall. Pt lives at [facility]. Pt was walking with his rollator on [facility] to go get cigarettes. Pt lost his balance while walking and stumbled onto grass and fell backwards hitting his head. No loss of consciousness per bystanders. Pt has chronic pain in back and legs. Pt arrives with c collar in place. Alert and oriented x 4. Skin warm and dry. Respirations even and unlabored. Call light in reach. [facility] 11-29-2023 Physician Emergency department Note EMERGENCY DEPARTMENT ENCOUNTER Pt Name: James Reyes Birthdate 1955 Date of evaluation: 11/29/2023 ED Provider: Bette Arreola DO CHIEF COMPLAINT Chief Complaint Patient [...] Acute kidney injury (HCC) 09/11/2015 CAD in [place] artery 08/08/2017 COPD (chronic obstructive pulmonary disease) [...] 07/18/2022 Performed by David Chen MD at [facility] OR CORONARY ARTERY BYPASS GRAFT FOOT [...] mouth daily. ergocalciferol (Vitamin D-2) 1.25 MG (12614 UT) capsule Take 1.25 mg by mouth [...] for chest pain. nystatin (Mycostatin) cream pancrelipase, Wtc-Irog-Uylj, (Creon) 77319-82158 units capsule Take by mouth 3 times [...] attack Mother 61.00 Heart disease Father Other ([id number]) Brother accident Coronary artery disease Father Diabetes [...] arteries: There is origin of the right HOTEL SERVICE SUPERVISOR. Otherwise, unremarkable. Anterior communicating artery: Unremarkable. Posterior communicating arteries: Robustness of the right posterior communicating artery is present, in keeping with origin of the right HOTEL SERVICE SUPERVISOR. Otherwise, unremarkable. Aneurysm or vascular malformation: None [...] arteries: There is origin of the right HOTEL SERVICE SUPERVISOR. Otherwise, unremarkable. Anterior communicating artery: Unremarkable. Posterior communicating arteries: Robustness of the right posterior communicating artery is present, in keeping with origin of the right HOTEL SERVICE SUPERVISOR. Otherwise, unremarkable. Aneurysm or vascular malformation: None [...] arteries: There is origin of the right HOTEL SERVICE SUPERVISOR. Otherwise, unremarkable. Anterior communicating artery: Unremarkable. Posterior communicating arteries: Robustness of the right posterior communicating artery is present, in keeping with origin of the right HOTEL SERVICE SUPERVISOR. Otherwise, unremarkable. Aneurysm or vascular malformation: None [...] equal to 30 ng/mL Test performed by [facility] Competitive Immunoassay, measuring Total Vitamin D, not [...] Abnormal Glucose 101 (*) Narrative: Performed by: [facility], [address] [place] [address] CLIA ID: [id number] POCT GLUCOSE METER UNSOLICITED RESULTS - Abnormal Glucose 139 (*) Narrative: Performed by: [facility], [address] [place] [address] CLIA ID: [id number] POCT GLUCOSE METER UNSOLICITED RESULTS - Abnormal Glucose 124 (*) Narrative: Performed by: [facility], [address] [place] [address] CLIA ID: [id number] POCT GLUCOSE METER UNSOLICITED RESULTS - Abnormal Glucose 139 (*) Narrative: Performed by: [facility], [address] [place] [address] CLIA ID: [id number] POCT GLUCOSE METER UNSOLICITED RESULTS - Abnormal Glucose 200 (*) Narrative: Performed by: [facility], [address] [place] [address] CLIA ID: [id number] POCT GLUCOSE METER UNSOLICITED RESULTS - Abnormal Glucose 124 (*) Narrative: Performed by: [facility], [address] [place] [address] CLIA ID: [id number] POCT GLUCOSE METER UNSOLICITED RESULTS - Abnormal Glucose 156 (*) Narrative: Performed by: [facility], [address] [place] [address] CLIA ID: [id number] POCT GLUCOSE METER UNSOLICITED RESULTS - Abnormal Glucose 276 (*) Narrative: Performed by: [facility], [address] [place] [address] CLIA ID: [id number] POCT GLUCOSE METER UNSOLICITED RESULTS - Abnormal Glucose 156 (*) Narrative: Performed by: [facility], [address] [place] [address] CLIA ID: [id number] POCT GLUCOSE METER UNSOLICITED RESULTS - Abnormal Glucose 207 (*) Narrative: Performed by: [facility], [address] [place] [address] CLIA ID: [id number] POCT GLUCOSE METER UNSOLICITED RESULTS - Abnormal Glucose 142 (*) Narrative: Performed by: [facility], [address] [place] [address] CLIA ID: [id number] POCT GLUCOSE METER UNSOLICITED RESULTS - Abnormal Glucose 259 (*) Narrative: Performed by: [facility], [address] [place] [address] CLIA ID: [id number] POCT GLUCOSE METER UNSOLICITED RESULTS - Abnormal Glucose 119 (*) Narrative: Performed by: [facility], [address] [place] [address] CLIA ID: [id number] PROTHROMBIN TIME - Normal PROTHROMBIN TIME 10.9 [...] - Normal Glucose 84 Narrative: Performed by: [facility], [address] [facility] [address] CLIA ID: [id number] POCT GLUCOSE METER UNSOLICITED RESULTS - Normal Glucose 74 Narrative: Performed by: [facility], [address] [facility] [address] CLIA ID: [id number] COMPREHENSIVE METABOLIC PANEL WITH MG REFLEX Narrative: The following orders were created for panel order Comprehensive Metabolic Panel w/ Mg Reflex. Procedure Abnormality Status --------- ------ Comprehensive metabolic ...[[id number]] Abnormal Final result Please view results for these tests on the individual orders. COMPREHENSIVE METABOLIC PANEL WITH MG REFLEX Narrative: The following orders were created for panel order Comprehensive Metabolic Panel with Mg Reflex. Procedure Abnormality Status --------- ------ Comprehensive metabolic ...[[id number]] Abnormal Final result Please view results for these tests on the individual orders. COMPREHENSIVE METABOLIC PANEL WITH MG REFLEX Narrative: The following orders were created for panel order Comprehensive Metabolic Panel with Mg Reflex. Procedure Abnormality Status --------- ------ Comprehensive metabolic ...[[id number]] Abnormal Final result Please view results for these tests on the individual orders. COMPREHENSIVE METABOLIC PANEL WITH MG REFLEX Narrative: The following orders were created for panel order Comprehensive Metabolic Panel with Mg Reflex. Procedure Abnormality Status --------- ------ Comprehensive metabolic ...[[id number]] Abnormal Final result Please view results for [...] Pulse: 51 (!) 48 50 52 Resp: Temp: 36.2 C (97.2 F) 36 C [...] Units (16 Units SubCUTAneous Given 12/03/2345) pancrelipase (Kao-Hezp-Qhdl) (Creon) 6000-93386 units per capsule 2 capsule (2 capsules [...] admitted for further evaluation and treatment. SCREENINGS Marlin Coma Scale Best Eye Response: Spontaneous Best [...] Motor - Right Leg: Some Effort Against [place] (pt reports pain being why he is [...] to contact the dictating provider for clarification.) Bette Arreola DO (electronically signed) Emergency Medicine Provider Bette Arreola DO 12/03/23 1132 [facility] 11-29-2023 Physician Emergency department Note Emergency Department Encounter Location: [facility] CARDIAC POST INTERVENTION PROGRESSIVE CARE UNIT CPI PCU 4W Patient: Jaems Reyes : 1955 Date of evaluation: 11/29/2023 [...] 457 ms QTC Interval 439 ms P Warren 13 degrees QRS Warren -44 degrees T Wave Warren 122 degrees MO Interval [address] cervical spine wo [...] call and speak with the hospitalist at [facility], Dr. Bowles who agreed accept patient for [...] (has no administration in time range) pancrelipase (Lan-Qazi-Iwji) (Creon) 6000-60223 units per capsule 2 capsule (has no [...] 0.5 mL (0.5 mL IntraMUSCular Given 11/29/23 164) meclizine (Antivert) tablet 25 mg (25 mg [...] Solutions Sergio Ruff DO 11/30/23 0433 Sergio Ruff, 11/30/23 0435 [facility] 09-14-2023 Instructions Jacqui Glass DDS - [...] done to speak with an oral surgeon. [facility] [phone]. HELPING THE HEALING PROCESS AND STOPPING THE [...] any questions or concerns please contact us: [facility] . Ask for the corrections corporal software applications architect (after hours). veterinary surgery technologist Clinic Hours: Mon-Fri 8:30 am to 4:30 pm. documented in this encounter [facility] 09-14-2023 Instructions Jacqui Glass, DDS - 09/14/2023 10:08 AM EDT Dental [...] done to speak with an oral surgeon. [facility] [phone]. HELPING THE HEALING PROCESS AND STOPPING THE [...] any questions or concerns please contact us: [facility] . Ask for the corrections corporal software applications architect (after hours). veterinary surgery technologist Clinic Hours: Mon-Fri 8:30 am to 4:30 pm. documented in this encounter [facility] 09-14-2023 History of Present illness Narrative ORAL SURGERY PROCEDURE ROOM NOTE [facility] Surgical Product(s): Routine extraction teeth # [...] Arriaza DMD, MD documented in this encounter [facility] 09-06-2023 History of Present illness Narrative FS PATIENT VISIT CHIEF COMPLAINT: Pain HISTORY OF PRESENT ILLNESS: A 67 yo male with PMHx Coronary artery disease s/pCABG 2014, [facility]- showing patent GREY to the LAD 2017. LV function normal 04/2012, Angina, Acute kidney injury (HCC),CAD in northwestern sh[place] artery, MINERVA, COPD, Developmental disorder, Diabetes, GERD, Hyperlipidemia, IBS (irritable bowel syndrome),Obesity, Osteoarthritis Patient present to [facility] [place] clinic with external referral for removal of [...] artery without angina pectoris [I25.10] CAD in northwestern shoshone artery [I25.10] Cataract, nuclear sclerotic, both eyes [...] unspecified [M15.9] Knee pain, bilateral [M25.561, M25.562] USP (current) use of antibiotics [Z79.2] Low back [...] unspecified reason [Z91.199] Peripheral vascular disease, unspecified ([facility]) [I73.9] Personal history of COVID-19 [Z86.16] Pseudomonas aeruginosa infection [A49.8] Respiratory failure (HCC) [J96.90] Shoulder pain, left [M25.512] Spondylosis without myelopathy [M47.819] Tobacco abuse [Z72.0] Type 2 diabetes mellitus treated with insulin ([facility]) [E11.9, Z79.4] Type 2 diabetes mellitus with chronic kidney disease (HCC) [E11.22] Type 2 diabetes mellitus with diabetic polyneuropathy ([facility]) [E11.42] Uncontrolled type 2 diabetes mellitus with hyperglycemia, with long-term current use of insulin ([facility]) [E11.65, Z79.4] Unspecified dementia, moderate, with psychotic disturbance [F03.B2] Vitamin D deficiency, unspecified [E55.9] Sternal wound dehiscence [T81.32XA] Wound disruption, post-op, skin, initial encounter [T81.31XA] REVIEW OF SYSTEMS: A 12-point review of systems was completed. Negative unless otherwise stated in HPI. MEDICATIONS: Current Outpatient Medications Medication Sig Dispense Refill pantoprazole (Protonix) 40 MG tablet 1 tab(s) orally once a day trimethoprim-polymyxin b (POLYTRIM) 88575-5.1 UNIT/ML-% ophthalmic solution slfxjdv-vnhuxz-fvhfyave (CREON) 01844 units capsule Take by mouth. oxyCODONE-acetaminophen (ROXICET) [...] by mouth 4 times daily. Continuous Glucose Clinical Trial Assistant ([email or web address] [place] [address] [place]) vitamin B-12 (CYANOCOBALAMIN) 1000 MCG/ML injection Inject [...] tablet vitamin D2 ergocalciferol (DRISDOL) 1.25 MG (43337 UT) capsule Take 1.25 mg by mouth [...] fluticasone (FLONASE) 50 mcg/act nasal inhaler 1 [place] daily. Advair Diskus 250-50 MCG/ACT inhaler gabapentin [...] #23, # 22 and #21. DIAGNOSIS: Caries [205006] ASSESSMENT: A 67 yo male with PMHx Coronary artery disease s/pCABG 2014, [facility]- showing patent GREY to the LAD 2017. LV function normal 04/2012, Angina, Acute kidney injury (HCC),CAD in northwestern shosh[place] artery, MINERVA, COPD, Developmental disorder, Diabetes, GERD, Hyperlipidemia, IBS (irritable bowel syndrome),Obesity, Osteoarthritis Patient present to [facility] [place] clinic with external referral for removal of lower teeth # 29, #27, #26, # 25, # 24, #23, # 22 and #21. PLAN: Our treatment plan to do extractions for teeth # 29, #27, #26, # 25, # 24, #23, # 22 and #21 and alveoplasty under LA in [facility] [place] clinic. Jb De Souza DDS Associated attestation [...] were not included. documented in this encounter [facility] 08-21-2023 History of Present illness Narrative [facility] Cardiology [facility] CARDIOLOGY [address] [place] [id number] Dept: [phone] Dept Visit type: Established : 1955 DATE of SERVICE: 08/21/2023 Chief Complaint: Chief Complaint Patient presents with 6 Month Follow-up Coronary Artery Disease History of Present Illness: James Reyes is a 67 y.o. male who presents today for routine follow-up regarding his coronary artery disease, previous bypass surgery in 2015, hyperlipidemia. He is accompanied by custodial foreman. Patient lives in assisted living at [facility]. He denies chest pain, palpitations dizziness lightheadedness or syncope. He was seen in in June by Mingo Gavin who ordered a dobutamine stress echocardiogram which was normal. There was no evidence of ischemia. Previous cardiac catheter 2017 showed patent GREY to the LAD. Patient's biggest complaint is arthralgias in his right knee. He is scheduled to see an orthopedic surgeon at [facility]. Apparently they are planning to try radiofrequency ablation of his pain nerves in his right knee. 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 COPD (chronic obstructive pulmonary disease) ([facility]) Developmental disorder Diabetes mellitus (HCC) Esophageal reflux [...] 07/18/2022 Performed by David Chen MD at [facility] OR CORONARY ARTERY BYPASS GRAFT FOOT [...] attack Mother 61.00 Heart disease Father Other ([id number]) Brother accident Coronary artery disease Father Diabetes [...] , Rfl: ergocalciferol (Vitamin D-2) 1.25 MG (49992 UT) capsule, Take 1.25 mg by mouth [...] for chest pain., Disp: , Rfl: pancrelipase, Fsd-Avcz-Fdfy, (Creon) 10882-18424 units capsule, Take by mouth 3 times [...] 08/07/17 Assessment and Plan: 1. CAD in [place] artery 2. Dyslipidemia James Reyes is warm [...] made to ensure accuracy; however, inadvertent computerized hostess errors may be present. documented in this encounter [facility] 07-13-2023 Nurse Note Spoke with nurse from [employer]. Pt has DSE tomorrow, please hold beta sonny for 24 hours and have pt NPO for 4 hours prior. [facility] 07-13-2023 Nurse Note Spoke with nurse from [employer]. Pt has DSE tomorrow, please hold beta sonny for 24 hours and have pt NPO for 4 hours prior. documented in this encounter [facility] 06-06-2023 Note HNO ID: [id number] Author: MARIXA STEPHENS MD Service: ? Author Type: Physician Type: Progress Notes Filed: 06/06/2023 11:38 Note Text: (E11.9) Type 2 diabetes mellitus without retinopathy (HCC) (primary encounter diagnosis) (H35.9991) Nonexudative age-related macular degeneration, bilateral, early dry [...] I have seen and examined James Cook Amy I have discussed the case and the management of this patient's care with the Resident/Fellow, if applicable. I also have reviewed and agree with the assessment and plan as stated above and agree with all of its relevant components. [facility] 06-06-2023 History of Present illness Narrative [...] its relevant components. documented in this encounter [facility] 05-12-2023 History of Present illness Narrative Images from the original note were not included. [facility] [address] [facility] [address] Dept: [phone] Dept Visit type: Established : 1955 Reason for Visit: Hospital follow up for Chest pain Assessment and Plan 1.Chest pain- in setting of history of Coronary artery disease s/pCABG 2014, [facility]- showing patent GREY to the LAD 2017. [...] pt in agreement to have testing at [facility] Continues on medical management; ASA, carvedilol and [...] and tobacco abuse. He currently resides at [facility] in [place]. The patient reports he began to have [...] Every Monday ergocalciferol (Vitamin D-2) 1.25 MG (51336 UT) capsule Take 1.25 mg by mouth [...] 2 times daily. nystatin (Mycostatin) cream pancrelipase, Lsq-Hsms-Gckl, (Creon) 15713-60204 units capsule Take by mouth 3 times [...] Acute kidney injury (HCC) 09/11/2015 CAD in [place] artery 08/08/2017 COPD (chronic obstructive pulmonary disease) [...] 07/18/2022 Performed by David Chen MD at [facility] OR CORONARY ARTERY BYPASS GRAFT FOOT [...] attack Mother 61.00 Heart disease Father Other ([id number]) Brother accident Coronary artery disease Father Diabetes [...] 11:59 PM (Final) Impression Sinus rhythm Prolonged MO interval Left anterior fascicular block Nonspecific T [...] documented in this encounter [facility] 05-12-2023 Instructions PATRICIA Rodriguez CNP - 05/12/2023 10:00 AM EST Nuclear stress test planned documented in this encounter [facility] 05-03-2023 Telephone encounter Note Canceling appt with KM, patient does not follow EP. Sent message to [place] special education secretary to reschedule patient with his team. [facility] [employer] 05-03-2023 Miscellaneous Notes Canceling appt with KM, patient does not follow EP. Sent message to [place] special education secretary to reschedule patient with his team. Patient seen in consultation by Dr. Greenberg in the CDU. Recommended stress test, but patient declined. States he would follow-up with his aircraft engine cylinder mechanic, Dr. Corcoran as an outpatient. Patient was discharged back to facility. Can you please call and schedule the patient to be seen by [address] Corcoran's DIE SINKER APPRENTICE's at [facility] in 2 weeks? Thank you documented in this encounter [facility] 04-24-2023 Telephone encounter Note Patient seen in consultation by Dr. Greenberg in the CDU. Recommended stress test, but patient declined. States he would follow-up with his aircraft engine cylinder mechanic, Dr. Corcoran as an outpatient. Patient was discharged back to facility. Can you please call and schedule the patient to be seen by [address] Corcoran's DIE SINKER APPRENTICE's at [facility] in 2 weeks? Thank you [facility] [employer] Work Phone: 04-24-2023 Miscellaneous Notes Patient seen in consultation by Dr. Greenberg in the CDU. Recommended stress test, but patient declined. States he would follow-up with his aircraft engine cylinder mechanic, Dr. Corcoran as an outpatient. Patient was discharged back to facility. Can you please call and schedule the patient to be seen by [address] Corcoran's DIE SINKER APPRENTICE's at [facility] in 2 weeks? Thank you documented in this encounter [facility] [employer] 04-24-2023 Nurse Note Report called to Juan nurse. [facility] 04-24-2023 Nurse Note Report called to Juan nurse. Patient refusing stress test at this time. Patient states he has had them before and did not like it. Patient states he just wants to go home. Cardiology and CDU DERICK notified. documented in this encounter [facility] [employer] 04-24-2023 Plan of care note The patient [...] these barriers include NA. [facility] 04-24-2023 Miscellaneous Notes The patient is [...] S/W, follow up Patient discharged back to [facility] Transport set via [facility] at 1p. extractor operator helper provided report number Facility notified via careport as to transport time. Patient aware of DC back at 1p. S/W, following Patient in from [facility] with chest pain. Likely to dc today to return. Return referral sent via [facility] to facility. S/W to follow for return. documented in this encounter [facility] 04-24-2023 Hospital Discharge instructions PATRICIA Nettles [...] 07/18/2022 Performed by David Chen MD at [facility] OR CORONARY ARTERY BYPASS GRAFT FOOT [...] hyperglycemia, with long-term current use of insulin ([facility]) CAD in northwestern sh[place] artery Uncontrolled type 2 diabetes mellitus with complication, with long-term current use of insulin Pseudomonas aeruginosa infection Angina at rest Sternal wound dehiscence director long term care (current) use of antibiotics Enlarged prostate with lower urinary tract symptoms (LUTS) Hypertensive heart disease Overview Signed 01/27/2022 12:43 PM by Interface, Incoming Problems- [facility] Conversion ECHO DONE [facility] 55% EF SHOWS HYPERTENSIVE HEART DISEASE COPD (chronic obstructive pulmonary disease) ([facility]) Overview Signed 01/27/2022 12:43 PM by Interface, Incoming Problems- [facility] Conversion PATIENT IS ON 2 LITER OF OXYGEN AND NOW IS SEEING DR ESTRADA WAS TESTED [facility] AND QUALIFED HOME OXYGEN 07/17/2015 Arthritis [...] assistance Toileting Total assistance Feeding Minimal assistance Dining Room Captain Minimal assistance Med Delivery yes Wound Care [...] Score: @READMISSIONRISKDETAILS@ Discharging to Facility/ Agency Name: [facility] Address: [address] [place] [address] Fax: Dialysis Facility (if applicable) Name: Address: Dialysis Schedule: Phone: Fax: Denture Processor/Assembly Worker signature: ICIAN SECTION Prognosis: fair Condition at [...] documented in this encounter [facility] 04-24-2023 Note Formatting of this n ote might be different from the original. S/W, follow up Patient discharged back to [facility] Transport set via [facility] at 1p. extractor operator helper provided report number [facility]. Patient aware of DC back at 1p. [facility] 04-24-2023 Note Formatting of this n ote might be different from the original. S/W, follow up Patient discharged back to [facility] Transport set via [facility] at 1p. extractor operator helper provided report number Facility notified via careport as to transport time. Patient aware of DC back at 1p. [facility] 04-24-2023 Nurse Note Spoke to Swati in CDU. Pt is choosing to go home, not have test. [facility] 04-24-2023 Nurse Note Spoke to Swati in CDU. Pt is choosing to go home, not have test. documented in this encounter [facility] 04-24-2023 Note Formatting of this n ote might be different from the original. S/W, following Patient in from [facility] with chest pain. Likely to dc today to return. Return referral sent via [facility] to facility. S/W to follow for return. [facility] 04-24-2023 Note Formatting of this n ote might be different from the original. S/W, following Patient in from [facility] with chest pain. Likely to dc today to return. Return referral sent via [facility] to facility. S/W to follow for return. [facility] 04-24-2023 Nurse Note Patient refusing stress test at this time. Patient states he has had them before and did not like it. Patient states he just wants to go home. Cardiology and CDU DERICK notified. [facility] 04-24-2023 Consult note Formatting of th is note is different from the original. [facility] CARDIOLOGY CONSULTATION Patient Name: James Reyes [...] he will followup as outpatient with his aircraft engine cylinder mechanic. C/w asa, coreg and lipitor Data Collection Cardiac Testin04/23/23 ECG 12-LEAD (Preliminary) This result has not been signed. Information might be incomplete. Impression Sinus rhythm Prolonged MO interval Left anterior fascicular block Nonspecific T [...] Acute kidney injury (HCC) (09/11/2015), CAD in northwestern shosh[place] artery (08/08/2017), COPD (chronic obstructive pulmonary disease) ([facility]), Developmental disorder, Diabetes mellitus ([facility]), Esophageal reflux, Gastritis, GERD (gastroesophageal reflux disease), Hyperlipidemia, IBS (irritable bowel syndrome), Obesity, Osteoarthritis, Pain management, Plantar fasciitis, bilateral, Unspecified sleep apnea, and Urinary retention. He has no past medical history of Asthma, Atrial fibrillation ([facility]), Cancer (CMS/HCC) ([facility]), Cerebral artery occlusion with cerebral infarction ([facility]), CHF (congestive heart failure) ([facility]), Depression, Headache, Immune deficiency disorder ([facility]), Kidney stone, Pneumonia, Seizures ([facility]), or Thyroid disease. SurgicalHistory: has a past surgical history that includes Colonoscopy (05/23/2017); Coronary artery bypass graft; Upper gastrointestinal endoscopy (04/01/2016); Other surgical history (10/24/2017); Other surgical history; Thyroid surgery; [place] tooth extraction; Hemorrhoid surgery; Colonoscopy; Cholecystectomy (03/29/2016); [...] use drugs. Family History: family history includes [id number] in his brother; Coronary artery disease in [...] Historical Provider, ergocalciferol (Vitamin D-2) 1.25 MG (23432 UT) capsule Take 1.25 mg by mouth [...] nystatin (Mycostatin) cream 11/08/22 Historical Provider, pancrelipase, Xdh-Xspk-Okyy, (Creon) 91701-50955 units capsule Take by mouth 3 times [...] WC mometasone-formoterol, 2 puff, Inhalation, BID pancrelipase (Ibe-Esjq-Zrwz), 2 capsule, Oral, TID WC pregabalin, 150 [...] dry. Neurological: Mental Status: He is alert. [facility] Work Phone: 04-24-2023 Consult note Formatting of th is note is different from the original. [facility] CARDIOLOGY CONSULTATION Patient Name: James Reyes [...] he will followup as outpatient with his aircraft engine cylinder mechanic. C/w asa, coreg and lipitor Data Collection Cardiac Testin04/23/23 ECG 12-LEAD (Preliminary) This result has not been signed. Information might be incomplete. Impression Sinus rhythm Prolonged MO interval Left anterior fascicular block Nonspecific T [...] past medical history of Acute kidney injury ([facility]) (09/11/2015), CAD in northwestern shosh[place] artery (08/08/2017), COPD (chronic obstructive pulmonary disease) ([facility]), Developmental disorder, Diabetes mellitus ([facility]), Esophageal reflux, Gastritis, GERD (gastroesophageal reflux disease), Hyperlipidemia, IBS (irritable bowel syndrome), Obesity, Osteoarthritis, Pain management, Plantar fasciitis, bilateral, Unspecified sleep apnea, and Urinary retention. He has no past medical history of Asthma, Atrial fibrillation ([facility]), Cancer (CMS/HCC) ([facility]), Cerebral artery occlusion with cerebral infarction ([facility]), CHF (congestive heart failure) ([facility]), Depression, Headache, Immune deficiency disorder ([facility]), Kidney stone, Pneumonia, Seizures ([facility]), or Thyroid disease. SurgicalHistory: has a past surgical history that includes Colonoscopy (05/23/2017); Coronary artery bypass graft; Upper gastrointestinal endoscopy (04/01/2016); Other surgical history (10/24/2017); Other surgical history; Thyroid surgery; [place] tooth extraction; Hemorrhoid surgery; Colonoscopy; Cholecystectomy (03/29/2016); [...] use drugs. Family History: family history includes [id number] in his brother; Coronary artery disease in [...] Historical Provider, ergocalciferol (Vitamin D-2) 1.25 MG (38089 UT) capsule Take 1.25 mg by mouth [...] nystatin (Mycostatin) cream 11/08/22 Historical Provider, pancrelipase, Dju-Amxx-Xtjr, (Creon) 47568-72216 units capsule Take by mouth 3 times [...] WC mometasone-formoterol, 2 puff, Inhalation, BID pancrelipase (Fdt-Gaqn-Nufp), 2 capsule, Oral, TID WC pregabalin, 150 [...] documented in this encounter [facility] 04-24-2023 Emergency department Note Report given to CDU MARLEY Snell RN 04/24/23803 [facility] 04-24-2023 Emergency department Note Report given to CDU MARLEY Snell RN 04/24/23803 Voltaren gel not given due to med not being available. Joelle Rivas RN 04/24/23 0358 Patient on telemetry monitoring. Joelle Rivas RN 04/23/232219 EMERGENCY DEPARTMENT ENCOUNTER Pt Name: James Reyes Birthdate 1955 Date of evaluation: 04/23/2023 ED Provider: Bette Arreola DO CHIEF COMPLAINT Chief Complaint Patient [...] Acute kidney injury (HCC) 09/11/2015 CAD in [place] artery 08/08/2017 COPD (chronic obstructive pulmonary disease) [...] per week. ERGOCALCIFEROL (VITAMIN D-2) 1.25 MG (68932 UT) CAPSULE Take 1.25 mg by mouth [...] mg by mouth 2 times daily. PANCRELIPASE, QJX-TTGE-QKDW, (CREON) 23935-69342 UNITS CAPSULE Take by mouth 3 times [...] attack Mother 61.00 Heart disease Father Other ([id number]) Brother accident Coronary artery disease Father Diabetes [...] to contact the dictating provider for clarification.) Bette Arreola DO (electronically signed) Emergency Medicine Provider Bette Arreola DO 04/23/23 2246 Patient presents to [...] documented in this encounter [facility] 04-24-2023 Emergency department Note Voltaren gel not given due to med not being available. Joelle Rivas RN 04/24/23 0358 [facility] 04-23-2023 History of Present illness Narrative I am not directly involved in care of this patient. Accepted with initial orders placed remotely from [facility] with approval from Dr. Mckeon. Further care to be managed by ED provider pending day shift CDU provider arrival. This is a non-billable note. CLIVE Savage documented in this encounter [facility] 04-23-2023 Emergency department Note Patient on telemetry monitoring. Joelle Rivas RN 04/23/232219 [facility] 04-23-2023 Emergency department Note Bed: 17 Expected date: 04/23/23 Expected time: 8:04 PM Means of arrival: Comments: Nancy Thorpe RN 04/23/232006 [employer] 04-23-2023 Emergency department Triage note Patient presents [...] the chronic arthritis in his right leg. [employer] 04-23-2023 Physician Emergency department Note EMERGENCY DEPARTMENT ENCOUNTER Pt Name: James Reyes Birthdate 1955 Date of evaluation: 04/23/2023 ED Provider: Bette Arreola DO CHIEF COMPLAINT Chief Complaint Patient [...] Acute kidney injury (HCC) 09/11/2015 CAD in [place] artery 08/08/2017 COPD (chronic obstructive pulmonary disease) [...] 07/18/2022 Performed by David Chen MD at [facility] [place] CORONARY ARTERY BYPASS GRAFT FOOT [...] per week. ERGOCALCIFEROL (VITAMIN D-2) 1.25 MG (69797 UT) CAPSULE Take 1.25 mg by mouth [...] mg by mouth 2 times daily. PANCRELIPASE, IGN-PFSN-WWYV, (CREON) 92817-45393 UNITS CAPSULE Take by mouth 3 times [...] attack Mother 61.00 Heart disease Father Other ([id number]) Brother accident Coronary artery disease Father Diabetes [...] to contact the dictating provider for clarification.) Bette Arreola DO (electronically signed) Emergency Medicine Provider Bette Arreola DO 04/23/23 0346 [facility] 02-22-2023 History of Present illness Narrative [facility] Cardiology [facility] CARDIOLOGY [address] [place] [id number] Dept: [phone] Dept Visit type: Established : 1955 Chief [...] Acute kidney injury (HCC) 09/11/2015 CAD in [place] artery 08/08/2017 COPD (chronic obstructive pulmonary disease) [...] attack Mother 61.00 Heart disease Father Other ([id number]) Brother accident Coronary artery disease Father Diabetes [...] , Rfl: ergocalciferol (Vitamin D-2) 1.25 MG (77779 UT) capsule, Take 1.25 mg by mouth [...] 2 times daily., Disp: , Rfl: pancrelipase, Vji-Zxnr-Ntqj, (Creon) 47617-[address] units capsule, Take by mouth 3 times [...] and Plan: 1. Coronary artery disease involving northwestern shoshone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 2. Dyslipidemia James [...] made to ensure accuracy; however, inadvertent computerized hostess errors may be present. documented in this encounter [facility] 12-13-2022 History of Present illness Narrative [...] History: Diagnosis Date Acute kidney injury (CMS/HCC) ([facility]) 09/11/2015 CAD in [place]western sh[place] artery 08/08/2017 COPD (chronic obstructive pulmonary disease) ([facility]) Developmental disorder Diabetes mellitus ([facility]) Esophageal reflux Gastritis see EGD on 03/29/2016 [...] per week. ergocalciferol (Vitamin D-2) 1.25 MG (79468 UT) capsule Take 1.25 mg by mouth [...] in this encounter. Follow Up: Start on [employer] diet to more fruits and vegatbiles and avoid all milk produts and no coffe but his colon was normal David Rodriguez MD, @TODAYSDATE@ documented in this encounter [facility] 07-18-2022 Note Formatting of this n ote might be different from the original. Discharged to [facility] (long-term resident). Accompanied by Arabella reyes . AVS and education reviewed with patient and Arabella, both verbalized understanding. Mode of transportation [place], patient accompanied with Arabella for transportation. Belongings sent. [facility] 07-18-2022 Note Formatting of this n ote might be different from the original. Discharged to [facility] (long-term resident). Accompanied by aideArabella . AVS and education reviewed with patient and Arabella, both verbalized understanding. Mode of transportation [place], patient accompanied with Arabella for transportation. Belongings sent. [facility] 07-18-2022 Miscellaneous Notes Discharged to [facility] (long-term resident). Accompanied by Arabella reyes . AVS and education reviewed with patient and Arabella, both verbalized understanding. Mode of transportation [place], patient accompanied with Arabella for transportation. Belongings sent. Images from the original note were not included. DEPARTMENT OF SURGERY OPERATIVE NOTE DATE OF PROCEDURE: 07/18/2022 ATTENDING SURGEON: David Rodriguez MD SCHOOL TRANSPORTATION DIRECTOR: 0 PREOPERATIVE DIAGNOSIS: colon bleed POSTOPERATIVE DIAGNOSIS: ulcer gastric, divertiulosisi, hemorroids OPERATION: egd, colonoscopy ANESTHESIA: ga ESTIMATED BLOOD LOSS: Brazilian HISTORY: patient with anemoia and abdominal pain and rectal bleeding PROCEDURE: egd show hiatal hernia, small gastric ulcers Colon to ICV , shows a few ticks lots of stool no polyps tumor, few ticks and hemorroids 1345 blood sugar 85. Per report, pt had low blood sugar in the AM was given 2 glucose tabs documented in this encounter [facility] 07-18-2022 Hospital Discharge instructions Lashay Wong RN - 07/18/2022 3:[address] Rodriguez's office: [phone] Anesthesia and Activity: DO NOT drive, operate [...] attachments cannot be sent through Care Everywhere.Colonoscopy (Brazilian)Upper GI Endoscopy (Brazilian)documented in this encounter [facility] 07-18-2022 Note Formatting of this n ote might be different from the original. Images from the original note were not included. DEPARTMENT OF SURGERY OPERATIVE NOTE DATE OF PROCEDURE: 07/18/2022 ATTENDING SURGEON: David Rodriguez MD SCHOOL TRANSPORTATION DIRECTOR: 0 PREOPERATIVE DIAGNOSIS: colon bleed POSTOPERATIVE DIAGNOSIS: ulcer gastric, divertiulosisi, hemorroids OPERATION: egd, colonoscopy ANESTHESIA: ga ESTIMATED BLOOD LOSS: Brazilian HISTORY: patient with anemoia and abdominal pain and rectal bleeding PROCEDURE: egd show hiatal hernia, small gastric ulcers Colon to ICV , shows a few ticks lots of stool no polyps tumor, few ticks and hemorroids [facility] Work Phone: 07-18-2022 Note Formatting of this n ote might be different from the original. Images from the original note were not included. DEPARTMENT OF SURGERY OPERATIVE NOTE DATE OF PROCEDURE: 07/18/2022 ATTENDING SURGEON: David Rodriguez MD SCHOOL TRANSPORTATION DIRECTOR: 0 PREOPERATIVE DIAGNOSIS: colon bleed POSTOPERATIVE DIAGNOSIS: ulcer gastric, divertiulosisi, hemorroids OPERATION: egd, colonoscopy ANESTHESIA: ga ESTIMATED BLOOD LOSS: Brazilian HISTORY: patient with anemoia and abdominal pain and rectal bleeding PROCEDURE: egd show hiatal hernia, small gastric ulcers Colon to ICV , shows a few ticks lots of stool no polyps tumor, few ticks and hemorroids [facility] Work Phone: 07-18-2022 History and physical note [...] kidney injury (CMS/HCC) (HCC) 09/11/2015 CAD in [place] artery 08/08/2017 COPD (chronic obstructive pulmonary disease) [...] HLD Tobacco use Anemia Ibs Screening colonoscopy [facility] 07-18-2022 History and physical note Subjective [...] History: Diagnosis Date Acute kidney injury (CMS/HCC) ([facility]) 09/11/2015 CAD in [place]western sh[place] artery 08/08/2017 COPD (chronic obstructive pulmonary disease) ([facility]) Developmental disorder Diabetes mellitus ([facility]) Esophageal reflux Gastritis see EGD on 03/29/2016 [...] documented in this encounter [facility] 07-18-2022 Note Formatting of this n ote might be different from the original. 1345 blood sugar 85. Per report, pt had low blood sugar in the AM was given 2 glucose tabs [facility] 07-18-2022 Note Formatting of this n ote might be different from the original. 1345 blood sugar 85. Per report, pt had low blood sugar in the AM was given 2 glucose tabs [facility] 06-07-2022 History of Present illness Narrative [facility] HPI: James Reyes is a 66 y.o. [...] History: Diagnosis Date Acute kidney injury (CMS/HCC) ([facility]) 09/11/2015 CAD in [place]western sh[place] artery 08/08/2017 COPD (chronic obstructive pulmonary disease) ([facility]) Developmental disorder Diabetes mellitus ([facility]) Esophageal reflux Gastritis see EGD on 03/29/2016 [...] attack Mother 61.00 Heart disease Father Other ([id number]) Brother accident Coronary artery disease Father Diabetes Father [facility] Assessment: 66 y.o. male in need of [...] documented in this encounter [facility] 05-06-2022 Miscellaneous Notes Addended by: WILMA GRANT on: 05/06/2022 11:06 AM Modules accepted: Orders documented in this encounter [facility] 05-06-2022 History of Present illness Narrative Assessment/Plan: 1. Type 2 diabetes mellitus without retinopathy (HCC) Patient educated on today's exam findings, importance of tight glucose control, and the importance of continued follow up with primary care physician and/or reinforced concrete inspector; monitor at complete exam. Diabetes [facility] [...] evaluation c RRE documented in this encounter [facility] 05-06-2022 Instructions Wilma Grant, OD - 05/06/2022 10:43 AM EST Images [...] your last [employer] Grid check, please call [phone] to schedule an appointment. . Dr. Grant [...] above listed brands. documented in this encounter [facility] 07-28-2021 Note HNO ID: [id number] Author: Aydee Juarez RN Service: Care Management Author Type: Registered Nurse Type: Care Mgt Progress Note Filed: 07/28/2021 3:01 PM Note Text: CARE MANAGEMENT DISCHARGE NOTE SERVICE DATE: 07/28/2021 SERVICE TIME: 2:59 PM LOS: 7 days Admission Date: 07/21/2021 DISCHARGE ARRANGEMENT (list agency and phone number) Discharge Arrangement: [facility] Acute Care Provider Name: Boone De Guzman CAREGIVER ASSESSMENT: Called and updated pt's brother Sreekanth about DC to [facility] today at 7pm. HANDOFF COMMUNICATION: RN to RN report TRANSPORTATION ARRANGEMENTS: Transportation Arrangements: Ambulance/[facility] Transportation Agency and Phone #:: [facility] ( [facility] ) [phone] / [phone] Date of Trip: 07/28/21 Time of Trip: 1900 Type of Service: S Non-emergency Is Patient Medicaid Pending?: No Customer Account Administrator Location: [facility] Destination: [facility] Financial Care Management Responsibility: None ADDITIONAL CONTACT RESOURCES: Text message to Pt's ROBBIE Marrufo with facility info. SIGNATURE: Aydee Juarez RN PATIENT NAME: James Reyes DATE: July 28, 2021 TIME: 2:59 PM PAGER/CONTACT #: [phone] [facility] 07-28-2021 Note HNO ID: [id number] Author: Dayana Hill MD Service: Critical Care Author Type: Physician Type: Progress Notes Filed: 07/28/2021 12:42 PM Note Text: [facility] STAFF PHYSICIAN NOTE OF PERSONAL INVOLVEMENT IN [...] 07/27/2021 Neut% 86.9 07/21/2021 Lymph% 4.7 07/21/2021 Lyon% 6.7 07/21/2021 Baso% 0.3 07/21/2021 Abs Neut 11.89 07/21/2021 Abs Lyon 0.92 07/21/2021 Abs Eosin 0.12 07/21/2021 Abs [...] with insulin regimen (more content not included)... [facility] 07-28-2021 Note HNO ID: [id number] Author: Myrna Banks DO Service: Critical Care [...] ? Mr. Reyes initially presented to the [facility] ED from [facility] on 07/21/2021 for evaluation of chest pain, [...] PRN acetaminophen, 650 (more content not included)... [facility] 07-27-2021 Note HNO ID: [id number] Author: Dayana Hill MD Service: Critical Care Author Type: Physician Type: Progress Notes Filed: 07/27/2021 4:27 PM Note Text: [facility] STAFF PHYSICIAN NOTE OF PERSONAL INVOLVEMENT IN CARE I have reviewed the progress note obtained and documented by the resident and I personally participated in the whtie components. I have discussed the case and [...] 07/27/2021 Neut% 86.9 07/21/2021 Lymph% 4.7 07/21/2021 Lyon% 6.7 07/21/2021 Baso% 0.3 07/21/2021 Abs Neut 11.89 07/21/2021 Abs Lyon 0.92 07/21/2021 Abs Eosin 0.12 07/21/2021 Abs [...] per ID. -Co (more content not included)... [facility] 07-27-2021 Note HNO ID: [id number] Author: Aydee Juarez RN Service: Care Management Author Type: Registered Nurse Type: Care Mgt Progress Note Filed: 07/27/2021 11:12 AM Note Text: CARE MANAGEMENT PROGRESS NOTE SERVICE DATE: 07/27/2021 SERVICE TIME: 11:01 AM LOS: 6 days Needs Prior to Discharge: To Be Determined;OT/PT Evaluation;Discharge Transportation DC plan: Return to [facility] date: TBD Barrier: Pt wears 2-4L O2 ant [facility]. On 6-8L NC now. Requet to facility to check on max O2 amount able to provide. Called and reviewed planning with brother- Sreekanth. Aware of plan for possible transfer to floor. Would like update about thoracentesis- not done yesterday. Message relayed to Dr Hill. SIGNATURE: Aydee Juarez RN PATIENT NAME: James Reyes DATE: July 27, 2021 TIME: 11:01 AM PAGER/CONTACT #: [phone] [facility] 07-27-2021 Note HNO ID: [id number] Author: Myrna Banks DO Service: Family Practice [...] 160* 417* -- (more content not included)... [facility] 07-26-2021 Note HNO ID: [id number] Author: Rosalie Dorantes DO Service: Critical Care Author Type: Resident Type: Plan of Care Filed: 07/26/2021 2:02 PM Note Text: Spoke with pt's brother, Sreekanth, and gave updates. Answered their questions to their satisfaction. Rosalie Dorantes DO Internal Medicine, PGY-2 07/26/21 2:[address] [facility] 07-26-2021 Note HNO ID: [id number] Author: Rosalie Dorantes DO Service: Family Practice Author Type: Resident Type: Progress Notes Filed: 07/26/2021 1:59 PM Note Text: Attestation signed by Dayana Hill MD at 07/26/2021 3:32 PM [facility] STAFF PHYSICIAN NOTE OF PERSONAL INVOLVEMENT IN [...] 07/26/2021 Neut% 86.9 07/21/2021 Lymph% 4.7 07/21/2021 Lyon% 6.7 07/21/2021 Baso% 0.3 07/21/2021 Abs Neut 11.89 07/21/2021 Abs Lyon 0.92 07/21/2021 Abs Eosin 0.12 07/21/2021 Abs [...] 12:10 PM --------- (more content not included)... [facility] 07-25-2021 Note HNO ID: [id number] Author: Steven Castellano MD Service: Critical Care Author Type: Resident Type: Progress Notes Filed: 07/25/2021 1:06 PM Note Text: Attestation signed by Abhijit Howell MD at 07/25/2021 10:38 PM [facility] STAFF PHYSICIAN NOTE OF PERSONAL INVOLVEMENT IN [...] 52* 57* 29.5 CBC: Recent Labs 07/25/2131607/24/21 0507/23/21 0044 07/22/21 0343 07/21/21 1020 WBC 12.31* [...] the last 168 hours. BMP: Recent Labs 07/25/21111407/25/2131607/24/2152807/23/2172907/23/214307/22/2158 07/22/21 03407/21/21 1020 GLUC -- 160* 417* -- 319* [...] 1.73* 1.52* CHEM: Recent Labs 07/25/21 1115 07/25/2131607/24/2152807/23/21 0707/23/21 0044 07/22/21 095 (more content not included)... [facility] 07-24-2021 Note HNO ID: [id number] Author: John Jay DO Service: Critical Care Author Type: Resident Type: Progress Notes Filed: 07/24/2021 5:41 PM Note Text: Attestation signed by Abhijit Howell MD at 07/24/2021 10:12 PM [facility] STAFF PHYSICIAN NOTE OF PERSONAL INVOLVEMENT IN [...] Intake/Output Summary (Last 24 hours) at 07/24/2021 221 Last data filed at 07/24/2021 1600 Gross [...] and soft and NT. +BSs. EXTREMITIES: Trace FILM BOOKER LE edema. 07/24/21 CXR: RESULT: This is [...] the last 168 hours. BMP: Recent Labs 07/24/2152807/23/21 0730 07/23/214 07/22/2158 07/22/21 0343 07/21/21 1020 GLUC 417* -- 319* -- 118* 61* NA 129* -- 132* -- 137 140 K 5.4* -- 5.2* -- 5.0 4.5 CHLOR 93* -- 95* -- 100 101 CO2 24 27 26 26 27 27 ANION 12 -- 11 -- 10 12 BUN 55* -- 42* -- 29* 25* CREAT 1.58* -- 1.74* -- 1.73* 1.52* CHEM: Recent Labs 07/24/2152807/23/2172907/23/214 07/22/2158 07/22/2134207/21/21 1020 ALB 2.5* -- 3.0* -- -- 3.3* TPROT -- -- -- -- -- 7.0 CA 8.5 -- 8.8 -- 8.5 9.2 MG -- -- -- -- 2.0 2.0 ICAL -- 1.12 -- 1.20 -- -- HEPATIC: Recent Labs 07/21/21 1020 ALKPHOS 88 ALT 10 AST 10* TBILI 0.3 CARDIAC: Recent Labs 07/24/2152807/21/21 1020 PBNP 937* 872* 4/6 Blood cultures NG x 2 days 07/22 [...] Solumedrol to 30mg (more content not included)... [facility] 07-24-2021 Note HNO ID: [id number] Author: Interface Note Service: ? Author Type: ? Type: Progress Notes Filed: 07/24/2021 3:10 AM Note Text: Epic Scheduled Downtime: 07/24/2021 1:08:47 AM to 07/24/2021 2:53:[address] [facility] 07-23-2021 Note HNO ID: [id number] Author: Steven Castellano MD Service: Critical Care Author Type: Resident Type: Progress Notes Filed: 07/23/2021 2:22 PM Note Text: Attestation signed by Abhijit Howell MD at 07/23/2021 7:22 PM [facility] STAFF PHYSICIAN NOTE OF PERSONAL INVOLVEMENT IN CARE I have reviewed the progress note obtained and documented by the resident and I personally participated in the white components. I have discussed the case and management of the patient's care. The following comments revise or confirm relevant white components of the note. Says may feel a little better or about the same. FILM BOOKER cough. No chest pain. Now on BiPAP [...] defect. DATA: BLOOD GAS: Recent Labs 07/23/2172907/22/21 0907/21/21 0954 VPH -- -- 7.315 VPC2 62* [...] the last 168 hours. BMP: Recent Labs 07/23/2130 07/23/21 0044 07/22/21 0958 07/22/21 0343 07/21/21 [...] of care, medical plan for the day, sr. consultant recommendations, medical disposition and current medical [...] the following organ (more content not included)... [facility] 07-22-2021 Note HNO ID: [id number] Author: Aydee Juarez RN Service: Care Management Author Type: Registered Nurse Type: Care Mgt Initial Assessment Filed: 07/22/2021 2:48 PM Note Text: CARE MANAGEMENT: ASSESSMENT AND DISCHARGE PLAN SERVICE DATE: July 22, 2021 SERVICE TIME: 2:37 PM PRIMARY CARE PHYSICIAN: Chelle Troncoso MD ADMISSION STATUS: Inpatient Needs Prior to Discharge: To Be Determined MED[place]: [place] Health Insurance: Medicaid Last Discharge Date: [...] None Has the Patient Been in a Fci Facility in the Past 30 days?: Yes Location and Dates: [facility] SOCIAL: Living Arrangements: Nursing Facility Lives [...] Completely I feel financially burdened by my [id number]-[id number] expenses for my prescription medication:: 0 - Disagree Completely Risk Score: 0 Patient is categorized as: Low risk < 2 Are you interested in bedside delivery of your medications? No Is Patient Psychosocially Complex?: No ASSESSMENT AND PLAN: Medical Needs: Medical Needs: None Psychosocial Needs: Psychosocial Needs: None FREEDOM OF CHOICE EXPLAINED: [place] of Choice Given: Yes POTENTIAL TRANSITION PLANS Fci Facility/Intermediate Care Facility Pt lives at [facility]. Pt plans to return. Facility assists with meds and meals. Pt requests call to brother Mayo [phone]. Called and left message. Pt may need O2. Message to facility to check if pt on O2. SIGNATURE: yAdee Juarez RN PATIENT NAME: Jmaes Reyes DATE: July 22, 2021 TIME: 2:37 PM PAGER/CONTACT #: [phone] [facility] 07-22-2021 Note HNO ID: [id number] Author: Abhijit Howell MD Service: Critical Care Author Type: Physician Type: Progress Notes Filed: 07/22/2021 2:48 PM Note Text: [facility] STAFF PHYSICIAN NOTE OF PERSONAL INVOLVEMENT IN [...] Intake/Output Summary (Last 24 hours) at 07/22/2021 5315 Last data filed at 07/22/2021 1300 Gross [...] 168 hours. BMP: Recent Labs 07/22/21 0958 07/22/21 0343 07/21/21 1020 GLUC -- 118* 61* NA [...] of care, medical plan for the day, sr. consultant recommendations, medical disposition and current medical [...] below. Time I (more content not included)... [facility] 07-22-2021 Note HNO ID: [id number] Author: Nancy Gong RPh Service: Pharmacy Author Type: Pharmacist Type: Plan of Care Filed: 07/22/2021 1:20 PM Note Text: PHARMACY MEDICATION REVIEW Patient Name: James Reyes : 1955 The following medications were updated within the [employer]NA[employer] medication list: Medications ADDED to [employer] medication list ? All medications below were added to the [employer] medication list. Medications CHANGED on [employer] medication list ? N/A Medications REMOVED from [employer] medication list ? Removed all previous entries including: ? Flomax ? Simethicone ? Percocet ? Metformin ? Lovastatin ? Insulin lispro ? lantus ? Folic acid ? Fenofibrate entries ? Aspirin ? Atorvastatin ? Bisacodyl ? Ferrous sulfate Additional comments: N/A The below information represents the best possible medication history: Yes Medication history completed by: Pharmacist: Nancy Gong RPh Source of history: longterm/Other [facility] Order Summary Report Medication nonadherence identified: No barriers noted Reconciliation completed: Yes Completed by: ICU team. All [employer] [employer] medications addressed by LIP Patient interested in Bedside Delivery Services or using OP Pharmacy at discharge? No; N/A Preferred outpatient pharmacy: [facility] [address] [place] [id number] [address] [facility] [phone] Allergies: Penicillins Unknown Teramycin [Oxytetra* Unknown Prior [...] nasal spray Yes Yes Sig: Use 1 [place] in the nose every 12 hours as needed (congestion). tamsulosin (FLOMAX) 0.4 mg Yes Yes Sig: Take 0.4 mg by mouth twice daily. tiZANidine (ZANAFLEX) 2 mg tablet Yes Yes Sig: Take 2 mg by mouth three times daily. Morning, afternoon, and bedtime for spasms Facility-Administered Medications: None Nancy Gong alfonso 07/22/2021 [facility] 07-22-2021 Note HNO ID: [id number] Author: Steven Castellano MD Service: Critical Care [...] 41.44] Mr. Reyes initially presented to the [facility] ED from [facility] on 07/21/2021 for evaluation of chest pain, dyspnea and cough, after being found to be saturating ~80% on RA. Upon initial evaluation in the ED, the patient was found to be hypoxic to ~80% requiring the use of NC and then later NRB. He was otherwise hemodynamically stable. Initial labs in the ED were significant for Glucose 56 (received amp D50), Poacher Wringer Operator: 1.52, WBC: 13.68, Plt: 407, and NT-ProBNP [...] K: 5.0, Bicarb: 27, Anion Gap: 10, Poacher Wringer Operator: 1.73 CBC Reviewed: WBC: 15.27, Hgb: 12.3 [...] Summary (Last 2 (more content not included)... [facility] 07-21-2021 Note HNO ID: [id number] Author: Juanito Morgan MD Service: Pulmonary Disease Author Type: Physician Type: Progress Notes Filed: 07/21/2021 3:58 PM Note Text: [facility] STAFF PHYSICIAN NOTE OF PERSONAL INVOLVEMENT IN [...] procedures. SIGNATURE: Juanito Morgan MD [facility] PAGER:[phone] DATE of SERVICE: July 21, 2021 [facility] 07-21-2021 Note HNO ID: [id number] Author: Tiffany Moran [facility] Service: Pharmacy Author Type: Pharmacist Type: Progress [...] care for this patient. Signature: Tiffany Moran [facility] Pager/Extension: [phone] [facility] 05-06-2019 Hospital Discharge instructions Barry Guadalupe MD - 05/06/2019 Discontinue lisinopril Discontinue Lasix No citrus foods Discontinue potassium chloride The following attachments cannot be sent through Care Everywhere.Hyperkalemia (Brazilian)documented in this encounter [facility] Work Phone: 04-12-2019 Hospital Discharge instructions James Begum MD - 04/12/2019 Call your doctor for follow-up care. The following attachments cannot be sent through Care Everywhere.Back Pain (Brazilian)documented in this encounter [facility] Work Phone: Evaluation note Diagnosis Acute exacerbation of chronic low back pain- Primary [facility] Work [facility]: Evaluation note* Diagnosis Hyperkalemia- Primary [...] as to cause [facility] Irritable bowel syndrome with both constipation and diarrhea- Primary Anemia, unspecified Mixed irritable bowel syndrome Encounter for screening for malignant neoplasm of colon [facility] Irritable bowel syndrome with both constipation and diarrhea- Primary Anemia, unspecified Mixed irritable bowel syndrome Encounter for screening for malignant neoplasm of colon [facility] noteNo assessment information availableWElyria Memorial Hospital Work Phone: Evaluation note* Diagnosis Functional diarrhea- Primary documented [facility] this [facility]* Diagnosis Coronary artery disease involving northwestern shoshone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- Primary Dyslipidemia Other and unspecified hyperlipidemia [facility] Diagnosis Chest pain- Primary Unspecified chest pain Chest pain, unspecified type Other chest pain [facility] Diagnosis Coronary artery disease involving northwestern shoshone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- Primary Stable angina pectoris [facility] Diagnosis Type 2 diabetes mellitus without retinopathy (HCC)- Primary Type II or unspecified type diabetes mellitus without mention of complication, not stated as uncontrolled Nonexudative age-related macular degeneration, bilateral, early dry stage Cataract, nuclear sclerotic, both eyes Senile nuclear sclerosis [facility] Diagnosis Coronary artery disease involving northwestern shoshone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 Stable angina pectoris (HCC) documented [facility] this [facility]* Diagnosis CAD in northwestern shoshone artery Dyslipidemia Other and unspecified hyperlipidemia [facility] Diagnosis Chronic dental caries extending to pulp- Primary Dental caries extending into pulp documented [facility] this [facility] Diagnosis Caries- Primary Unspecified dental caries documented in this [facility] Diagnosis Chronic dental caries extending to pulp- Primary Dental caries extending into pulp documented in this [facility] Diagnosis Closed head injury, initial encounter- Primary Closed head injury, initial encounter Fall, initial encounter Pain in both knees, unspecified chronicity [facility] Diagnosis Coronary artery disease involving coronary bypass graft of northwestern shoshone heart without angina pectoris- Primary Chest pain, unspecified type Mixed hyperlipidemia [facility] Diagnosis Coronary artery disease involving northwestern shoshone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 Other congestive heart failure (HCC) documented [facility] Diagnosis Irritable bowel syndrome with both constipation and diarrhea- Primary [facility] Diagnosis Recurrent UTI Urinary tract infection, site not specified [facility] Diagnosis Elevated PSA- Primary Elevated prostate specific antigen (PSA) BPH with lower urinary tract symptoms without urinary obstruction Urge incontinence Gross hematuria Recurrent UTI Urinary tract infection, site not specified Retention of urine, unspecified Recurrent UTI Urinary tract infection, site not specified [facility] Diagnosis Acute hypercapnic respiratory failure (HCC)- Primary Acute hypercapnic respiratory failure (HCC) Hypercapnia Other dyspnea and respiratory abnormality Hypoxia Hypoxemia documented [facility] Diagnosis BPH with lower urinary tract symptoms without urinary obstruction Urge incontinence Elevated PSA Elevated prostate specific antigen (PSA) Gross hematuria documented in this [facility]* Diagnosis Hematemesis- Primary Hematemesis Coffee ground emesis Hematemesis documented [facility] Diagnosis Recurrent UTI- Primary Urinary tract infection, site not specified Urge incontinence Elevated PSA Elevated prostate specific antigen (PSA) BPH with lower urinary tract symptoms without urinary obstruction Retention of urine, unspecified documented in this [facility]* Diagnosis Recurrent UTI- Primary Urinary tract infection, site not specified documented in this [facility]* Diagnosis Recurrent UTI- Primary Urinary tract infection, site not specified documented in this [facility]* Diagnosis Coronary artery disease involving coronary bypass graft of northwestern shoshone heart without angina pectoris- Primary Mixed hyperlipidemia documented in this encounter [facility] for referral (narrative)No reason for referral information availableWElyria Memorial Hospital Work Phone: Summary Purpose Family History Family Member Condition Other Family Member No known family hist ory Advance Directives Documents on File Type Date Recorded Patient Account Support Specialist Expl anation DNR (Do Not Resuscitate) 10/16/2017 Date Activated Date Inactivated Comments 11/30/2023 1:00 AM Date Activated Date Inactivated Comments 04/24/2023 1:27 AM 04/24/2023 3:38 PM Documents on File Type Date Recorded Patient Account Support Specialist Expl anation Advance Directives and Living Will Power of Drivers' Cash Clerk Latest Code Status on File Code Status [...] Documents on File Type Date Recorded Patient Account Support Specialist Expl anation DNR (Do Not Resuscitate) 10/16/2017 [...] and Reason for Visit Chief Complaint LABWORK [facility] LAB WORK Chief Complaint LABWORK [facility] LAB WORK [facility] LABWORK Chief Complaint [facility] LAB WOR K Chief Complaint [facility] LAB WOR K [facility] LAB WORK Chief Complaint Admit Date [facility] LAB WORK March 26 5:00am LABWORK April 01, 2024 5:00am [facility] LAB WORK May 14, 2024 7:35am [facility] LAB WORK July 01, 2024 5 :00am Chief Complaint Admit Date LABWORK September 23, 2024 5:00a m [facility] LAB WORK September 25, 2024 5: 00am [facility] LAB WORK September 30, 2024 12 :05am [facility] LAB WORK October 06, 2024 10 :15pm [facility] LAB WORK October 24, 2024 6: 30am Reason for Referral Specialty Diagnoses / Procedures Referred By Chely rosales Referred To Contact Cardiology Diagnoses Coronary artery disease involving northwestern sh[place]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 Stable angina pectoris Procedures Stress echocardiogram (TTE) dobutamine with contrast, bubble, strain, and 3D PRN order panel MO ECHO TTHRC R-T 2D W/WO M-MODE COMPLETE REST&ST MO ECHO TTHRC R-T 2D W/WO M-MODE REST&STRS CONT ECG MO DOPPLER ECHOCARD PULSE WAVE W/SPECTRAL DISPLAY MO DOP ECHOCARD COLOR FLOW VELOCITY MAPPING MO CV STRS TST XERS&/OR RX CONT ECG W/O I&R MO CV STRS TST XERS&/OR RX CONT ECG TRCG ONLY MO CV STRS TST XERS&/OR RX CONT ECG I&R ONLY Mingo Gavin ASSOCIATE PROFESSOR OF AUTOMATION - SEISMIC PROSPECTING SUPERVISOR [address] [place] [address] Referral ID Status Reason Start Date Expiration Date V isits Requested Visits Authorized [id number] Pending Review 05/12/2023 05/11/2024 1 1 Specialty Diagnoses / Procedures Referred By Chely rosales Referred To Contact Cardiology Diagnoses Coronary artery disease involving northwestern shoshone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 Stable angina pectoris (HCC) Procedures Stress echocardiogram (TTE) dobutamine with contrast, bubble, strain, and 3D PRN order panel MO ECHO TTHRC R-T 2D W/WO M-MODE COMPLETE REST&ST MO ECHO TTHRC R-T 2D W/WO M-MODE REST&STRS CONT ECG MO DOPPLER ECHOCARD PULSE WAVE W/SPECTRAL DISPLAY MO DOP ECHOCARD COLOR FLOW VELOCITY MAPPING MO CV STRS TST XERS&/OR RX CONT ECG W/O I&R MO CV STRS TST XERS&/OR RX CONT ECG TRCG ONLY MO CV STRS TST XERS&/OR RX CONT ECG I&R ONLY Mingo Gavin APRN - SEISMIC PROSPECTING SUPERVISOR [address] [place] [address] Referral ID Status Reason Start Date Expiration Date Visits Re quested Visits Authorized [id number] Closed 05/12/2023 05/11/2024 1 1 Specialty Diagnoses / Procedures Referred By Chely rosales Referred To Contact Dentistry Diagnoses Chronic dental caries extending to pulp Rony Arriaza DMD, MD [address] [place] [id number] [place] [address] Referral ID Status Reason Start Date Expiration Date V isits Requested Visits Authorized [id number] Authorized 09/14/2023 03/12/2024 3 3 Scheduling Instructions Please call the Dental Clinic at [facility] at to schedule an appointment if one was not made for you today. Specialty Diagnoses / Procedures Referred By Chely rosales Referred To Contact Oral Surgery Diagnoses Caries Procedures EXTRACTION ERUPTED TOOTH/EXR Rony Arriaza DMD, MD [address] [place] [address] Referral ID Status Reason Start Date Expiration Date V isits Requested Visits Authorized [id number] Pending Review 09/06/2023 09/05/2024 1 1 Scheduling [...] your procedure, you will be contacted with [id number] costs or next steps. All self-pay payments [...] the procedure: You also MUST have a tow truck driver/escort >18yrs old present to take you [...] Contact Cardiology Diagnoses Coronary artery disease involving northwestern shoshone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 Other congestive heart failure (HCC) Procedures Transthoracic echocardiogram (TTE) complete with contrast, bubble, strain, and 3D PRN MO ECHO TTHRC R-T 2D W/WOM-MODE COMPL SPEC&COLR D MO TTE W OR WO FOL WCON,DOPPLER Suzy Corcoran MD [address] [facility] [address] [place] [address] [facility] Non-Invasive Cardiology [address] [place] [phone] Referral ID Status Reason Start Date Expiration Date V isits Requested Visits Authorized [id number] Closed Perform Procedure 04/13/2022 10/10/2022 1 1 Additional Source Comments (unrecognized sect ion and content) No Status Records FoundNo Status Records FoundNo Status Records FoundNo Status Records FoundNo Status Records FoundNo Status Records FoundNo Status Records FoundNo Status Records FoundNo Status Records Found INFORMATION SOURCE (unrecogn ized section and content) DATE CREATED AUTHOR 01/30/2018 [facility] DATE CREATED AUTHOR AUTHOR'S ORGANIZ ATION 03/07/2018 [facility] DATE CREATED AUTHOR AUTHOR'S ORGANIZ ATION 08/10/2018 [facility] DATE CREATED AUTHOR AUTHOR'S ORGANIZ ATION 05/06/2019 [facility] DATE CREATED AUTHOR AUTHOR'S ORGANIZ ATION 07/29/2021 [facility] DATE CREATED AUTHOR AUTHOR'S ORGANIZ ATION 06/07/2023 [facility] DATE CREATED AUTHOR AUTHOR'S ORGANIZ ATION 10/12/2023 [facility] DATE CREATED AUTHOR AUTHOR'S ORGANIZ ATION 02/20/2025 [facility] DATE CREATED AUTHOR AUTHOR'S ORGANIZ ATION 02/20/2025 [facility] Source Comments (unrecognize d section and content) In the event this informatio n is protected by the Federal Confidentiality of Alcohol and Drug Abuse Patient Records regulations: The Federal rules restrict any use of the information to criminally investigate or prosecute any alcohol or drug abuse patient.[facility] the event this information is protected by the Federal Confidentiality of Alcohol and Drug Abuse Patient Records regulations: The Federal rules restrict any use of the information to criminally investigate or prosecute any alcohol or drug abuse patient.[facility] Hospital[facility] the event this information is protected by the Federal Confidentiality of Alcohol and Drug Abuse Patient Records regulations: The Federal rules restrict any use of the information to criminally investigate or prosecute any alcohol or drug abuse patient.[facility] Reason for Visit (unrecogniz ed section [...] unspecified type Procedures . 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 Stable angina pectoris (HCC) Procedures Stress echocardiogram (TTE) dobutamine with contrast, bubble, strain, and 3D PRN order panel MO ECHO TTHRC R-T 2D W/WO M-MODE COMPLETE REST&ST MO ECHO TTHRC R-T 2D W/WO M-MODE REST&STRS CONT ECG MO DOPPLER ECHOCARD PULSE WAVE W/SPECTRAL DISPLAY MO DOP ECHOCARD COLOR FLOW VELOCITY MAPPING MO CV STRS TST XERS&/OR RX CONT ECG W/O I&R MO CV STRS TST XERS&/OR RX CONT ECG TRCG ONLY MO CV STRS TST XERS&/OR RX CONT ECG I&R ONLY Mingo Gavin, ASSOCIATE PROFESSOR OF AUTOMATION - SEISMIC PROSPECTING SUPERVISOR [address] [place] [address] Referral ID Status Reason Start Date Expiration Date Visits Re quested Visits Authorized [id number] Closed 05/12/2023 05/11/2024 1 1 Specialty Diagnoses / Procedures Referred By Chely t Referred To Contact Oral Surgery Diagnoses Dental caries Klever Álvarez DDS [address] [place] [address] [facility] ORAL SURGERY [address] [place] [address] Referral ID Status Reason Start Date Expiration Date Visits Requested Visits Authorized [id number] [facility]/13/[facility]22 12/14/2023 3 3 Specialty Diagnoses / Procedures Referred By Contac t Referred To Contact Diagnoses Closed head injury, initial encounter Fall, initial encounter Procedures . Lorenza Bowles MD [address] [place] [address] [facility] [address] [phone] Referral ID Status Reason Start Date Expiration Date Visits Re quested Visits Authorized [id number] 1 1 Reason Comments Fall Head Laceration Specialty Diagnoses / Procedures Referred By Contac t Referred To Contact Diagnoses Closed head injury, initial encounter Fall, initial encounter Procedures . 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 Heart failure, unspecified (HCC) Procedures MO ECHO TTHRC R-T 2D W/WOM-MODE COMPL SPEC&COLR D MO TTE W OR WO FOL WCON,DOPPLER [facility] Non-Invasive Cardiology [address] [place] [phone] Referral ID Status Reason Start Date Expiration Date Visits Re quested Visits Authorized [id number] 1 1 Reason Comments New Patient Melena/bleeding [...] failure (HCC) Procedures J96.02 Haydee Willis DO [address] [place] [address] Phone: tel: fax: [facility] [address] [place] [address] Phone: tel: Referral ID Status Reason Start Date Expiration Date Visits Re quested Visits Authorized [id number] 1 1 Reason Comments Procedure Cysto Benign Prostatic Hypertrophy UTI Urinary Incontinence Reason Comments Vomiting Blood Specialty Diagnoses / Procedures Referred By Contac t Referred To Contact Diagnoses Hematemesis Procedures . Bethany Sandhu MD [address] [address] Phone: tel: fax: [facility] [address] [place] [address] Phone: tel: Referral ID Status Reason Start Date Expiration Date Visits Re quested Visits Authorized [id number] 1 1 Reason Comments Difficulty Urinating Burning, painful, f eels air is passing while voiding Reason Onset Date Comments Care Management 01/14/2025 Reason Comments Follow-up Reason Onset Date Comments Other 02/11/2025 Weight fluctuate s Care Teams (unrecognized sec tion and content) Laboratory Coordinator Relationship Specialty Start Date End Date Chelle Troncoso [address] [place] [address] PCP - General Family Medicine 04/28/21 Laboratory Coordinator Relationship Specialty Start Date End Date Chelle Troncoso [address] [place] [address] PCP - General Family Medicine 06/08/22 Laboratory Coordinator Relationship Specialty Start Date End Date Chelle Troncoso [address] [place] [address] [address] [place] [address] PCP - General Family Medicine 06/08/22 Team Status: Inactive Member Role Status Dates Chelle GARCIA Attending Provider Active Team Status: Active Member Role Status Dates Chelle GARCIA Attending Provider Active Laboratory Coordinator Relationship Specialty Start Date End Date Chelle Troncoso [address] [place] [address] [address] [place] [address] PCP - General Family Medicine 06/08/22 Laboratory Coordinator Relationship Specialty Start Date End Date Chelle Troncoso [address] [place] [address] [address] [place] [address] PCP - General Family Medicine 06/08/22 Laboratory Coordinator Relationship Specialty Start Date End Date Chelle Troncoso [address] [place] [address] [address] [place] [address] PCP - General Family Medicine 06/08/22 Laboratory Coordinator Relationship Specialty Start Date End Date Chelle Troncoso [address] [place] [address] [address] [place] [address] PCP - General Family Medicine 06/08/22 Laboratory Coordinator Relationship Specialty Start Date End Date Chelle Troncoso [address] [place] [address] [address] [place] [address] PCP - General Family Medicine 06/08/22 Laboratory Coordinator Relationship Specialty Start Date End Date Chelle Troncoso [address] [place] [address] [address] [place] [address] PCP - General Family Medicine 06/08/22 Laboratory Coordinator Relationship Specialty Start Date End Date Chelle Troncoso [address] [place] [address] PCP - General Family Medicine 04/28/21 Laboratory Coordinator Relationship Specialty Start Date End Date Chelle Troncoso [address] [place] [address] [address] [place] [address] PCP - General Family Medicine 06/08/22 Laboratory Coordinator Relationship Specialty Start Date End Date Chelle Troncoso [address] [place] [address] [address] [place] [address] PCP - General Family Medicine 06/08/22 Laboratory Coordinator Relationship Specialty Start Date End Date Rony Arriaza DMD, MD [address] [place] [address] Physician Oral & Maxillofacial Surgery 09/16/23 Laboratory Coordinator Relationship Specialty Start Date End Date Rony Arriaza DMD, MD [address] [place] [address] Physician Oral & Maxillofacial Surgery 09/16/23 Laboratory Coordinator Relationship Specialty Start Date End Date [facility] Primary Care Provider 11/24/23 Laboratory Coordinator Relationship Specialty Start Date End Date [facility] Primary Care Provider 11/24/23 Laboratory Coordinator Relationship Specialty Start Date End Date Chelle Troncoso MD [address] [place] [address] [address] [place] [address] PCP - General Family Medicine 03/08/24 [facility] Primary Care Provider 11/24/23 Laboratory Coordinator Relationship Specialty Start Date End Date Jose Martin Marion [address] [place] [phone] PCP - General 12/12/18 Laboratory Coordinator Relationship Specialty Start Date End Date Jose Martin Marion [address] [place] [phone] PCP - General 12/12/18 Laboratory Coordinator Relationship Specialty Start Date End Date Chelle Troncoso MD [address] [place] [address] [address] [place] [address] PCP - General Family Medicine 03/08/24 Pepe Marino MD [address] [address] Surgeon Urology 05/02/24 [facility] Marixa Perdomo Primary Care Provider 11/24/23 Laboratory Coordinator Relationship Specialty Start Date End Date Chelle Troncoso MD [address] [place] [address] [address] [place] [address] PCP - General Family Medicine 03/08/24 Pepe Marino MD [address] [address] Surgeon Urology 05/02/24 [facility] Marixa Perdomo Primary Care Provider 11/24/23 Laboratory Coordinator Relationship Specialty Start Date End Date Chelle Troncoso MD [address] [place] [address] [address] [place] [address] PCP - General Family Medicine 03/08/24 Pepe Marino MD [address] [address] Surgeon Urology 05/02/24 [facility] Marixa Perdomo Primary Care Provider 11/24/23 Laboratory Coordinator Relationship Specialty Start Date End Date Chelle Troncoso MD [address] [place] [address] [address] [place] [address] PCP - General Family Medicine 03/08/24 Pepe Marino MD 201 [facility] [address] [place] [address] Surgeon Urology 05/02/24 [facility] Nicky Perdomo Primary Care Provider 11/24/23 Laboratory Coordinator Relationship Specialty Start Date End Date Chelle Troncoso MD [address] [place] [address] [address] [place] [address] PCP - General Family Medicine 03/08/24 Pepe Marino MD 201 [facility] [address] [place] [address] Surgeon Urology 05/02/24 [facility] 11/24/23 Laboratory Coordinator Relationship Specialty Start Date End Date Chelle Troncoso MD [address] [place] [address] [address] [place] [address] PCP - General Family Medicine 03/08/24 Pepe Marino MD [address] [address] Surgeon Urology 05/02/24 [facility] Provider 11/24/23 Team Status: Inactive [...] September 25, 2024 End: September 25, 2024 Laboratory Coordinator Relationship Specialty Start Date End Date Chelle Troncoso MD [address] [place] [address] [address] [place] [address] PCP - General Family Medicine 03/08/24 Pepe Marino MD [address] [address] Surgeon Urology 05/02/24 [facility]domo Primary Care Provider 11/24/23 Laboratory Coordinator Relationship Specialty Start Date End Date Chelle Troncoso MD [address] [place] [address] [address] [place] [address] PCP - General Family Medicine 03/08/24 Pepe Marino MD [address] [address] Surgeon Urology 05/02/24 [facility] Mar[facility]a Perdomo Primary Care Provider 11/24/23 Laboratory Coordinator Relationship Specialty Start Date End Date Chelle Troncoso MD [address] [place] [address] [address] [place] [address] PCP - General Family Medicine 03/08/24 Pepe Marino MD [address] [address] Surgeon Urology 05/02/24 [facility]o Primary Care Provider 11/24/23 Laboratory Coordinator Relationship Specialty Start Date End Date Chelle Troncoso MD [address] [place] [address] [address] [place] [address] PCP - General Family Medicine 03/08/24 Pepe Marino MD [address] [address] Surgeon Urology 05/02/24 [facility] Primary Care Provider 11/24/23 Laboratory Coordinator Relationship Specialty Start Date End Date Chelle Troncoso MD [address] [place] [address] [address] [place] [address] PCP - General Family Medicine 03/08/24 Pepe Marino MD [address] [address] Surgeon Urology 05/02/24 [facility] Primary Care Provider 11/24/23 Goals (unrecognized section and content) Goals may [...] (Given - Provider: Joelle Rivas RN) pancrelipase (Fpu-Upwl-Ojcu) (Creon) 6000-17337 units per capsule 2 capsule 2 capsule, [...] sedation for opioid reversal - MUST notify software applications architect provider immediately after first dose, may give [...] at 0800 0845 (Given - Provider: Starla Mrate RN)1709 (Given - Provider: Starla Marte RN) [...] Romario Luna, MARLEY)1312 (Stopped - Provider: Romario Luna RN) cholestyramine (Questran) packet 4 g 4 [...] Santa English, MARLEY)2130 (Given - Provider: Kel Balderas RN) 0856 [...] 0829 (Given - Provider: Santa English, MARLEY) 0855 [...] 0831 (Given - Provider: Santa English RN) 0900 (Given - Provider: Romario Luna, MARLEY) insulin glargine (Lantus) injection 48 Units 48 Units, SubCUTAneous, Daily, First dose on Mon11/30/23 at 0800 2011 (Given - Provider: Mamta Lai RN) 2029 (Given - Provider: Kel Balderas, MARLEY) [...] RN) 0831 (Given - Provider: Santa English, MARLEY)2029 (Given - Provider: Kel Balderas, MARLEY) 09 (Given - Provider: Romario Luna RN) pancrelipase (Cme-Yexy-Bonk) (Creon) [id number] units per capsule 2 capsule 2 capsule, [...] Santa English RN)1249 (Given - Provider: Santa English, MARLEY)1645 (Given - Provider: Santa English, MARLEY) 0855 (Given - Provider: Romario Luna, MARLEY)1244 (Given - Provider: Romario Luna RN)1700 (Canceled Entry - Provider: Automatic Discharge Provider - Comment: Automatically canceled at discontinue of medication order) pregabalin (Lyrica) capsule 150 mg 150 mg, Oral, 2 times daily, First dose on Mon11/30/23 at 0115 0844 (Given - Provider: Starla Marte RN)2011 (Given - Provider: Mamta Lai RN) 0828 (Given - Provider: Santa English, MARLEY)2150 (Given - Provider: Kel Balderas RN) 0854 (Given - Provider: Romario Luna, MARLEY) tamsulosin (Flomax) 24 hr capsule 0.4 mg 0.4 mg, Oral, 2 times daily, First dose on Mon11/30/23 at 0600, Do not crush, chew, or split. 0518 (Given - Provider: Mamta Lai RN)1709 (Given - Provider: Starla Marte RN) 0829 (Given - Provider: Santa English, MARLEY)1657 (Given - Provider: Santa English, MARLEY - Comment: patient prefer to take with dinner) 0854 (Given - Provider: Romario Luna RN) tiotropium (Spiriva Respimat) 2.5 MCG/ACT inhaler 2 puff 2 puff, Inhalation, Daily, First dose on Mon11/30/23 at 0900 0846 (Given - Provider: Starla Marte RN) 0831 (Given - Provider: Santa English, RN) 0900 (Given - Provider: Romario Luna, RN) Continuous Medication Order 12/03/2023 12/04/2023 12/05/2023 sodium chloride 0.9 % infusion 50 mL/hr, IntraVENous, Continuous, Starting on [place] 11/30/23 at 0115 0614 (New Bag - Provider: Mamta Lai, MARLEY)0842 (Rate/Dose Verify - Provider: Starla Marte RN) [...] Marte RN) 0243 (Given - Provider: Mamta Lai, MARLEY)1258 (Given - Provider: Santa English, MARLEY) 0854 (Given - Provider: Romario Luna, MARLEY) albuterol (2.5 MG/3ML) 0.083% nebulizer solution 2.5 mg 2.5 mg, Nebulization, 3 times daily PRN, wheezing, Starting on [place] 11/30/23 at 1545 bisacodyl (Dulcolax) suppository 10 mg 10 mg, Rectal, Daily PRN, constipation, Starting on Mon11/30/23 at 0059, 2nd line for treatment of constipation - give scheduled (in addition to 1st line agent) if no bowel movement in past 48 hours dextrose 5 % infusion 100 mL/hr, IntraVENous, PRN, Blood sugar less than 70mg/dL, Starting on [place] 11/30/23 at 0100, Start infusion following administration of [...] needed, low blood sugar, Starting on [place] 11/30/23 at 0100, If blood glucose less than [...] Starla Marte, MARLEY)2012 (Given - Provider: Mamta Lai, MARLEY) naloxone (Narcan) injection 0.4 mg 0.4 mg, IntraVENous, Every 5 min PRN, opioid reversal, respiratory depression, Starting on [place] 11/30/23 at 1329, +++ For RR <10, pinpoint pupils, over sedation for opioid reversal - MUST notify software applications architect provider immediately after first dose, may give [...] RN) 1651 (Given - Provider: Santa English RN)223 (Given - Provider: Kel Balderas, MARLEY) 0526 (Given - Provider: Kel Balderas RN) [...] meals, First dose on Mon05/30/24 at 1700 0829 (Given - Provider: Ghassan [...] RN) 09 (Given - Provider: Arcadio Naylor RN)212 (Given - Provider: Landy Brink RN) 0944 (Given - Provider: Tish Diaz, MARLEY) guaiFENesin (Mucinex) 12 hr tablet 600 mg 600 mg, Oral, 2 times daily, First dose on Mon05/30/24 at 1145, Administer with plenty of fluids to ensure proper action. Do not crush, chew, or split. 0829 (Given - Provider: Ghassan Rodriguez RN)2207 (Given - Provider: Landy Brink RN) 0906 (Given - Provider: Arcadio Naylor RN)212 (Given - Provider: Landy Brink, MARLEY) 0900 [...] Rodriguez RN)1700 (Not Given - Provider: Ghassan Rodirguez RN - Reason: Order parameters not met) [...] Arcadio Naylor RN)1235 (Given - Provider: Arcadio Naylro RN)1718 (Given - Provider: Arcadio Naylor RN) [...] Nancy Rios RCP)1313 (Given - Provider: Nancy Rios, TEEN COUNSELOR) ipratropium-albuterol (Duo-Neb) 0.5-2.5 mg/3 mL nebulizer solution 3 mL 3 mL, Nebulization, 3 times daily, First dose (after last modification) on [place] 06/02/24 at 2000 2050 (Given - Provider: Grecia Martel RCP) 0932 (Not Given - Provider: Carolin Mac RCP - Reason: Other - Comment: pt request to come back later. informed pt that RT will return around 1200. pt was ok with this)165 (Given - Provider: Carolin Mac RCP)223 (Given - Provider: Amador Gupta RCP - Comment: RT busy) 0833 (Given - Provider: Nicholas Escobar RCP)1213 (Given - Provider: Nicholas Escobar RCP) mupirocin (Bactroban) 2 % ointment 1 Application (COMPLETED) 1 Application, Nasal, 2 times daily, First dose on [facility] 05/30/24 at 1145, For 5 days, Indications: MRSA Nasal Decolonization 0831 (Given - Provider: Ghassan Rodriguez RN)2207 (Given - Provider: Landy Brink RN) 0909 (Given - Provider: Arcadio Naylor RN)211 (Given - Provider: Landy Brink RN) pancrelipase (Eth-Fpsp-Zbln) (Creon) [id number] units per capsule 1 capsule 1 capsule, Oral, 3 times daily with meals, First dose on [facility] 05/30/24 at 1200, Administer whole with food [...] 40 mg, Oral, Daily, First dose on [place] 06/02/24 at 0900 0829 (Given - Provider: Ghassan Rodriguez RN) 0906 (Given - Provider: Arcadio Naylor, MARLEY) 0937 (Given - Provider: Tish Diaz, RN) pregabalin (Lyrica) capsule 150 mg 150 mg, Oral, 2 times daily, First dose on [place] 05/30/24 at 1145 0829 (Given - Provider: Ghassan Rodriguez, RN)220 (Given - Provider: Landy Brink, MARLEY) 09 (Given - Provider: Arcadio Naylor, RN)2119 (Given - Provider: Landy Brink RN) 0937 (Given - Provider: Tish Diaz, RN) tamsulosin (Flomax) 24 hr capsule 0.4 mg 0.4 mg, Oral, Daily, First dose on [place] 05/30/24 at 1145, Do not crush, chew, or split. 0829 (Given - Provider: Ghassan Rodriguez RN) 09 (Given - Provider: Arcadio Naylor, MARLEY) 0937 (Given - Provider: Tish Diaz, RN) PRN Medication Order 06/02/2024 06/03/2024 06/04/2024 acetaminophen (Tylenol) tablet 1,000 mg 1,000 mg, Oral, Every 8 hours PRN, mild pain (1-3), fever, Starting on [place] 05/30/24 at 1136, Maximum dose of acetaminophen is 4000 mg from all sources in 24 hours. 2206 (Given - Provider: Landy Brink RN) 2119 (Given - Provider: Landy Brink, MARLEY) dextrose 5 % infusion 100 mL/hr, IntraVENous, [...] Starting on [place] 05/30/24 at 1134, +++notify software applications architect provider if used+++ ondansetron (Zofran) injection 4 [...] Pain 1519 (Given - Provider: Baljeet Duke RN)213 (Given - Provider: Fariba Wilder RN) 0904 (Given - Provider: Isael Ash RN)1303 (Given - Provider: Iasel Ash RN)203 (Given - Provider: Fariba Wilder RN) 0846 [...] Ash RN) 0847 (Given - Provider: Isael Ahs RN) carvedilol (Coreg) tablet 3.125 mg 3.125 [...] 2131 (Given - Provider: Fariba Wilder RN) 203 (Given - Provider: Fariba Wilder RN) 2100 [...] 2133 (Given - Provider: Fariba Wilder RN) 203 (Given - Provider: Fariba Wilder RN) 2100 (Canceled Entry - Provider: Automatic Discharge Provider - Comment: Automatically canceled at discontinue of medication order) mometasone-formoterol (Dulera 100) 100-5 MCG/ACT inhaler 2 puff 2 puff, Inhalation, 2 times daily, First dose on Mon07/15/24 at 2000, Rinse mouth with water after use to reduce aftertaste and incidence of candidiasis. Do not swallow. 2132 (Given - Provider: Fariba Wilder RN) 0903 (Given - Provider: Isael Ash RN)1999 (Given - Provider: Fariba Wilder RN) 0845 (Given - Provider: Isael Ash RN)1999 (Canceled Entry - Provider: Automatic Discharge Provider - Comment: Automatically canceled at discontinue of medication order) pancrelipase (Dli-Lsbw-Pkmv) (Creon) [id number] units per capsule 2 capsule 2 capsule, [...] 2100 2131 (Given - Provider: Fariba Wilder, RN) 0903 (Given - Provider: Isael Ash [...] Anesthesia - Provider: Jimbo Avitia APRN - ROLL OFF DRIVER) PRN Medication Order 07/15/2024 07/16/2024 07/17/2024 acetaminophen [...] a Fluress shortage, administer 1 drop of Perrin-Fluor into both eyes as directed for applanation [...] BE BASED ON THE PRIMARY CLINICAL RECORDS. [facility]. provides no warranty or guarantee of the accuracy or completeness of information in this document.
[2025-03-24 08:39] LABS: Hematocrit 37.4 % (40-54); Hemoglobin 11.6 g/dL (13.0-16.5); Mean Corp Hgb Conc 31.0 g/dL (32-36); Mean Corpuscular Volume 88.8 fL (80-94); Mean Platelet Vol. 9.4 fl (6.2-12.0); Platelet Count 263 K/mm3 (150-450); RBC Distribution Width CV 18.8 % (11.6-14.6); RBC Distribution Width SD 61.2 fl (35.1-43.9); Red Blood Count 4.21 M/mm3 (4.6-6.2); White Blood Count 6.3 K/mm3 (4.4-11.0)
[2025-03-24 09:04] LABS: AST(SGOT) 14 U/L (<=37); Alanine Aminotransfer ALT/SGPT 7 U/L (<=46); Albumin, Serum 3.4 g/dL (3.4-4.8); Alkaline Phosphatase 111 U/L (40-129); Anion Gap 8 (5-15); BUN 18 mg/dL (4-19); BUN/Creat Ratio 14.7 RATIO (10-20); Bilirubin, Direct 0.18 mg/dL (0.00-0.30); Calcium,Total 9.1 mg/dL (7.6-11.0); Carbon Dioxide 24.6 mmol/L (21.0-32.0); Chloride 108 mmol/L (98-108); Cholesterol 84 mg/dL (<=200); Globulin 3.0 g/dL (2.2-4.2); Glucose 93 mg/dL (70-99); Low Density Lipoprotein Calc. 21 mg/dL; Potassium 4.3 mmol/L (3.3-5.1); Triglycerides 150 mg/dL; Very Low Density Lipoprotein 30 mg/dL (5-40); cholesterol:hdl ratio screen 2.26
== END | disposition home or self-care (01) ==
LOC: OLS.ACW200 05:00
PROVIDERS: Visit Provider Family Medicine
DX: S09.90XD Unspecified injury of head, subsequent encounter (principal); J96.02 Acute respiratory failure with hypercapnia; M51.362 Other intervertebral disc degeneration, lumbar region with discogenic back pain and lower extremity pain
CPT/HCPCS: 36415; 80048; 80061; 80076; 83036; 84443; 85027